=== PATIENT | male | born 1955 | race Caucasian/White ===

== ENCOUNTER 2017-01-22 20:28 | Inpatient (IN) | payer OTHER ==
[~2017-01-22] VITALS: Ht 182.9 cm; Wt 134.9 kg
[2017-01-22 20:33] VITALS: BP 112/72; PULSE 132; RESP 18; TEMP 98.2; O2SAT 95
[2017-01-22] MEDS ORDERED: SODIUM CHLORIDE 0.9% FLUSH 10 ML FLUSH IVF PRN (21:00)
[2017-01-22] MEDS ORDERED: MORPHINE SULFATE 4 MG/ML INJ IV PUSH ONE (21:00)
[2017-01-22] MEDS ORDERED: SODIUM CHLOR 0.9% 1000 ML INJ 1,000 ML IV ONE ×2 (21:00→22:00)
--- NOTE | 2017-01-22 21:03 | PD ---
HPI Chief Complaint: Fall Time Seen by Provider: 21:00 Travel History International Travel<30 days: No Contact w/Intl Traveler<30days: No Traveled to known affect area: No History of Present Illness HPI 61-year-old male with history of HTN, gout presents to the ED for evaluation of bilateral knee pain after a mechanical fall. The patient states that he lost his balance about 4 or 5 days ago and fell onto the bilateral knees. He denies loss of consciousness at that time. He states that he has been ambulatory but on a limited basis since the fall. The son is at bedside, states that he went to check on his dad today and brought him to the emergency room. Patient reports a history of "kidney problems." States that he cannot take allopurinol. Patient is followed by Dr. Arias, PCP. [facility] Past Medical History Cardiovascular Problems: Yes (HTN) Diabetes: Yes Patient Takes Glucophage: No Diminished Hearing: No Gout: Yes Hypertension: Yes Tetanus Vaccination: Unknown Influenza Vaccination: No Past Surgical History Surgical History: No Previous Surgery Social History Alcohol Use: No Tobacco Use: No Substance Use: No Allergies-Medications (Allergen,Severity, Reaction): Coded Allergies: levofloxacin (Verified Allergy, Severe, 01/22/17) Reported Meds & Prescriptions Reported Meds & Active Scripts Active Review of Systems Except as stated in HPI: all other systems reviewed are Neg Physical Exam Exam Limitations: Poor Historian Narrative GENERAL: Well-nourished, well-developed obese white male in no acute distress. SKIN: Focused skin assessment warm/dry. Tender edema, warmth and erythema of the right hand to the mid forearm. No axillary LAD noted. HEAD: Normocephalic. Atraumatic. EYES: No scleral icterus. No injection or drainage. PERRLA. EOMI. NECK: Supple, trachea midline. No JVD or lymphadenopathy. CARDIOVASCULAR: Regular rate and rhythm without murmurs, gallops, or rubs. 2+ DP and radial pulses bilaterally. RESPIRATORY: Breath sounds clear and equal bilaterally. No accessory muscle use. GASTROINTESTINAL: Abdomen soft, non-tender, nondistended. Active bowel sounds. MUSCULOSKELETAL: No cyanosis. Tophi noted at all joints. TTP of the bilateral knees. Attempted ROM elicits pain. 2+ pitting edema around the ankle of the left leg. Trace edema in the right leg to the mid ramirez. NEUROLOGICAL: Awake and alert. Cranial nerves II through XII intact. Motor and sensory grossly within normal limits. 5/5 muscle strength in all muscle groups. Normal speech. BACK: Nontender without obvious deformity. No CVA tenderness. Data Data Last Documented VS Vital Signs Date Time Temp Pulse Resp B/P (MAP) Pulse Ox O2 Delivery O2 Flow Rate FiO2 01/22/17 21:45 94 01/22/17 21:41 127 22 Room Air 01/22/17 20:33 98.2 Orders Orders Complete Blood Count With Diff (01/22/17 20:54) Blood Culture (01/22/17 20:54) Iv Access Insert/Monitor (01/22/17 20:54) Sodium Chloride 0.9% Flush (Ns Flush) (01/22/17 21:00) Comprehensive Metabolic Panel (01/22/17 20:54) Oximetry (01/22/17 20:54) Blood Pressure (01/22/17 20:54) Sodium Chlor 0.9% 1000 Ml Inj (Ns 1000 M (01/22/17 21:00) Morphine Inj (Morphine Inj) (01/22/17 21:00) C-Reactive Protein (Crp) (01/22/17 20:54) Westergren Sedimentation Rate (01/22/17 20:54) Knee, Complete (4vws) (01/22/17 20:54) Wrist, Complete ([id number]) (01/22/17 20:54) Hip, Uni(Ap&Lat) W Ap Pelvis (01/22/17 20:54) Knee, Complete (4vws) (01/22/17 20:54) Vancomycin Inj (Vancomycin Inj) (01/22/17 22:00) Piperacil-Tazo 4.5 Gm Premix (Zosyn 4.5 (01/22/17 22:00) Sodium Chlor 0.9% 1000 Ml Inj (Ns 1000 M (01/22/17 22:00) Lactic Acid (01/22/17 21:57) Electrocardiogram (01/22/17 22:03) Ckmb (Isoenzyme) Profile (01/22/17 22:03) Troponin I (01/22/17 22:03) Chest, Single Ap (01/22/17 22:03) Ct Brain W/O Iv Contrast(Rout) (01/22/17 22:03) CKMB (01/22/17 22:20) CKMB% (01/22/17 22:20) Labs Laboratory Tests Test 01/22/17 21:05 White Blood Count 19.3 TH/MM3 Red Blood Count 4.78 MIL/MM3 Hemoglobin 12.8 GM/DL Hematocrit 40.0 % Mean Corpuscular Volume 83.7 FL Mean Corpuscular Hemoglobin 26.8 PG Mean Corpuscular Hemoglobin Concent 32.0 % Red Cell Distribution Width 17.7 % Platelet Count 335 TH/MM3 Mean Platelet Volume 8.0 FL Neutrophils (%) (Auto) 84.3 % Lymphocytes (%) (Auto) 3.2 % Monocytes (%) (Auto) 10.4 % Eosinophils (%) (Auto) 0.9 % Basophils (%) (Auto) 1.2 % Neutrophils # (Auto) 16.2 TH/MM3 Lymphocytes # (Auto) 0.6 TH/MM3 Monocytes # (Auto) 2.0 TH/MM3 Eosinophils # (Auto) 0.2 TH/MM3 Basophils # (Auto) 0.2 TH/MM3 CBC Comment AUTO DIFF Differential Total Cells Counted 100 Neutrophils % (Manual) 74 % Band Neutrophils % 5 % Lymphocytes % 2 % Monocytes % 16 % Eosinophils % 1 % Neutrophils # (Manual) 15.6 TH/MM3 Metamyelocytes 1 % Myelocytes 1 % Differential Comment FINAL DIFF MANUAL Platelet Estimate NORMAL Platelet Morphology Comment NORMAL Erythrocyte Sedimentation Rate 22 mm/hr Blood Urea Nitrogen 45 MG/DL Creatinine 4.09 MG/DL Random Glucose 258 MG/DL Total Protein 7.6 GM/DL Albumin 2.1 GM/DL Calcium Level 9.2 MG/DL Alkaline Phosphatase 137 U/L Aspartate Amino Transf (AST/SGOT) 19 U/L Alanine Aminotransferase (ALT/SGPT) 24 U/L Total Bilirubin 0.9 MG/DL Sodium Level 129 MEQ/L Potassium Level 4.3 MEQ/L Chloride Level 94 MEQ/L Carbon Dioxide Level 21.9 MEQ/L Anion Gap 13 MEQ/L Estimat Glomerular Filtration Rate 15 ML/MIN C-Reactive Protein 31.00 MG/DL [facility] Medical Decision Making Medical Screen Exam Complete: Yes Emergency Medical Condition: Yes Differential Diagnosis OA versus gout flare versus cellulitis versus septic arthritis versus musculoskeletal pain versus fracture versus rhabdomyolysis versus metabolic derangement versus other Narrative Course 61-year-old male with history of HTN, gout presents to the ED for evaluation of bilateral knee pain after a mechanical fall. The patient states that he lost his balance about 4 or 5 days ago and fell onto the bilateral knees. He denies loss of consciousness at that time. He states that he has been ambulatory but on a limited basis since the fall. The son is at bedside, states that he went to check on his dad today and brought him to the emergency room. Patient reports a history of "kidney problems." States that he cannot take allopurinol. Patient is followed by Dr. Arias, PCP. Patient is afebrile, heart rate in the 120s on presentation. Physical exam reveals a white male in no acute distress. Visible tophi in all the joints. Concerned for cellulitis or possible septic joint of the right wrist. There is warm, tender erythema with edema to the mid forearm. No axillary LAD noted. Also tenderness to palpation of the right hip and the bilateral knees. Patient resists attempted ROM of the BLE. IV was established. Patient was administered IV morphine, 2 L normal saline. CBC reveals white count 19.3 with a left shift. Sodium 129. BUN 25, creatinine 4.09. ESR 22. CRP 31. No culture indicated of the UA. X-ray of the wrist reveals nondisplaced fracture of the distal radius. I discussed the results of the workup with the patient. Per the patient's son he reports multiple falls so course of the last week or so. Given this history the workup was expanded to rule out syncope. Pending at this time. Patient was administered IV vancomycin and Zosyn with concern for septic arthritis. Spoke with Dr. Nathan's ILIA Reyes who recommends velcro splinting of the wrist. Dr. Nathan will see the patient tomorrow morning. Spoke with Dr. Chakraborty who agrees to accept the patient to the medicine service. Please see medicine notes for disposition. Sepsis Criteria SIRS Criteria (2 or more): Heart rate over 90 Sepsis Criteria (SIRS+source): Infect source susp/known Severe Sepsis (+one): Acute Oliguria/Renal Failure Sarahi Simon Jan 22, 2017 21:03
[2017-01-22 21:25] LABS: AUTOMATED NEUTROPHIL # 16.2 TH/MM3 (1.8-7.7); BASOPHIL # 0.2 TH/MM3 (0-0.2); BASOPHIL % 1.2 % (0.0-2.0); EOSINOPHIL # 0.2 TH/MM3 (0-0.4); EOSINOPHIL % 0.9 % (0.0-4.0); LYMPH % 3.2 % (9.0-44.0); LYMPHOCYTE # 0.6 TH/MM3 (1.0-4.8); MEAN CELL VOLUME 83.7 FL (80.0-100.0); MEAN CORPUSCULAR HEMOGLOBIN 26.8 PG (27.0-34.0); MONO % 10.4 % (0.0-8.0); NEUT % 84.3 % (16.0-70.0); PLATELET COUNT 335 TH/MM3 (150-450); RED BLOOD COUNT 4.78 MIL/MM3 (4.50-5.90); RED CELL DISTRIBUTION WIDTH 17.7 % (11.6-17.2); WHITE BLOOD COUNT 19.3 TH/MM3 (4.0-11.0)
[2017-01-22 21:28] LABS: HEMO FLAGS AUTO DIFF
[2017-01-22 21:41] VITALS: BP 119/63; PULSE 127; RESP 22
[2017-01-22 21:41] LABS: ALT (GPT) 24 U/L (12-78); ANION GAP 13 MEQ/L (5-15); AST (GOT) 19 U/L (15-37); BICARBONATE 21.9 MEQ/L (21.0-32.0); BLOOD UREA NITROGEN 45 MG/DL (7-18); CHLORIDE 94 MEQ/L (98-107); GLOMERULAR FILTRATION RATE 15 ML/MIN (>89); POTASSIUM 4.3 MEQ/L (3.5-5.1); SODIUM (NA) 129 MEQ/L (136-145)
[2017-01-22 21:44] LABS: ALKALINE PHOSPHATASE 137 U/L (45-117); TOTAL BILIRUBIN ADULT 0.9 MG/DL (0.2-1.0)
[2017-01-22 21:45] VITALS: O2SAT 94
--- NOTE | 2017-01-22 21:58 | RADRPT ---
EXAM DATE/TIME: 01/22/2017 21:10 [facility] COMPARISON: No previous studies available for comparison. INDICATIONS : Right hip pain after fall four days ago. MEDICAL HISTORY : Gout. SURGICAL HISTORY : None. ENCOUNTER: Initial ACUITY: 4 - 6 days PAIN SCORE: 10/10 LOCATION: Right hip. FINDINGS: AP view the pelvis was obtained as well as AP and oblique views of the right hip. Degenerative change s are noted in both hips with superior joint space loss, sclerosis and hypertrophic change. There is mild flattening and remodeling of the right head. There is no definite acute fracture. The pubic rami are intact. Vascular calcifications are present. CONCLUSION: 1. Mild to moderate degenerative change of both hips with no acute fracture or malalignment. There is flattening and remodeling of the right humeral head. Benjamin Person MD on January 22, 2017 at 21:55 Board Certified Radiologist. This report was verified electronically.
--- NOTE | 2017-01-22 21:59 | RADRPT ---
EXAM DATE/TIME: 01/22/2017 21:14 [facility] COMPARISON: No previous studies available for comparison. INDICATIONS : Right knee pain after fall four days ago. MEDICAL HISTORY : Gout. SURGICAL HISTORY : None. ENCOUNTER: Initial ACUITY: 4 - 6 days PAIN SCORE: 10/10 LOCATION: Right knee. FINDINGS: A standard 4 view examination of the right knee was obtained and demonstrates no acute fracture or ma lalignment. There is soft tissue swelling over the patella. There is evidence of joint effusion. Ther e is 3 compartment osteoarthritic change with mild joint space loss, sclerosis and hypertrophic camilo e. CONCLUSION: 1. No acute fracture or malalignment. 2. Soft tissue swelling and osteoarthritic change. 3. Joint effusion Benjamin Person MD on January 22, 2017 at 21:57 Board Certified Radiologist. This report was verified electronically.
[2017-01-22] MEDS ORDERED: VANCOMYCIN INJ 1,000 MG in SODIUM CHLOR 0.9% 250 ML INJ 250 ML IV ONE (22:00)
[2017-01-22] MEDS ORDERED: PIPERACIL-TAZO 4.5 GM PREMIX 100 ML IV ONE (22:00)
--- NOTE | 2017-01-22 22:01 | RADRPT ---
EXAM DATE/TIME: 01/22/2017 21:17 [facility] COMPARISON: No previous studies available for comparison. INDICATIONS : Left knee pain after fall four days ago. MEDICAL HISTORY : Gout. SURGICAL HISTORY : None. ENCOUNTER: Initial ACUITY: 4 - 6 days PAIN SCORE: 10/10 LOCATION: Left knee. FINDINGS: A standard 4 view examination of the left knee was obtained and demonstrates mild osteopenia and norm al alignment. There is evidence of a moderate to large joint effusion filling the suprapatellar bursa . 3 compartment degenerative change is noted with mild joint space loss, sclerosis and spurring. Ther e is sclerosis involving a portion of the medial tibial plateau. There is no fracture line. There is mild chondrocalcinosis. CONCLUSION: 1. Evidence of moderate to large joint effusion. 2. No acute fracture or malalignment. 3. Mild 3 compartment osteoarthritic change. Benjamin Person MD on January 22, 2017 at 21:58 Board Certified Radiologist. This report was verified electronically.
--- NOTE | 2017-01-22 22:03 | RADRPT ---
EXAM DATE/TIME: 01/22/2017 21:21 [facility] COMPARISON: No previous studies available for comparison. INDICATIONS : Right wrist pain after fall four days ago. MEDICAL HISTORY : Gout. SURGICAL HISTORY : None. ENCOUNTER: Initial ACUITY: 4 - 6 days PAIN SCORE: 10/10 LOCATION: Right wrist. FINDINGS: AP, lateral and oblique views of the right wrist were obtained and demonstrate a nondisplaced oblique fracture through the distal ulna. There is deformity of the distal most portion of the ulna which ap pears chronic. Diffuse degenerative changes are noted about the carpus with joint space loss, scleros is and hypertrophic change. There is diffuse osteopenia. The distal radius is intact. There is soft t issue swelling over the dorsum of the wrist. CONCLUSION: 1. Nondisplaced oblique fracture through the distal ulna. 2. Chronic appearing deformity of the distal ulna as well. 3. Extensive degenerative change and osteopenia. Benjamin Person MD on January 22, 2017 at 21:59 Board Certified Radiologist. This report was verified electronically.
[2017-01-22 22:34] LABS: BANDS 5 % (0-6); EOSINOPHILS 1 % (0-4); METAMYELOCYTES 1 % (0-1); MYELOCYTES 1 % (0-0); NEUTROPHIL # MANUAL DIFF 15.6 TH/MM3 (1.8-7.7); POLYS (SEG NEUTROPHILS) 74 % (16-70); WBC DIFF SAMPLE 100
--- NOTE | 2017-01-22 22:37 | RADRPT ---
EXAM DATE/TIME: 01/22/2017 22:18 [facility] COMPARISON: No previous studies available for comparison. INDICATIONS : Syncope. Multiple falls. MEDICAL HISTORY : Hypertension. Diabetes. Gout. SURGICAL HISTORY : None. ENCOUNTER: Initial ACUITY: 1 day PAIN SCORE: Non-responsive. LOCATION: Bilateral chest FINDINGS: A single view of the chest demonstrates the lungs to be symmetrically aerated without evidence of mas s, infiltrate or effusion. The cardiomediastinal contours are unremarkable. Osseous structures are intact. There are electrocardiogram leads. CONCLUSION: No acute disease. Benjamin Person MD on January 22, 2017 at 22:35 Board Certified Radiologist. This report was verified electronically.
[2017-01-22 22:39] LABS: PLATELET ESTIMATE SMEAR NORMAL (NORMAL)
[2017-01-22 22:40] LABS: PLATELET MORPHOLOGY NORMAL (NORMAL); SCAN/DIFF FINAL DIFF MANUAL
--- NOTE | 2017-01-22 22:51 | RADRPT ---
EXAM DATE/TIME: 01/22/2017 22:39 [facility] COMPARISON: No previous studies available for comparison. INDICATIONS : Trauma; fall. RADIATION DOSE: 56.35 CTDIvol (mGy) MEDICAL HISTORY : Hypertension. Diabetes mellitus type 2. Gout SURGICAL HISTORY : None. ENCOUNTER: Initial ACUITY: 1 day PAIN SCALE: 4/10 LOCATION: cranial TECHNIQUE: Multiple contiguous axial images were obtained of the head. Using automated exposure control and adj ustment of the mA and/or kV according to patient size, radiation dose was kept as low as reasonably a chievable to obtain optimal diagnostic quality images. DICOM format image data is available electro nically for review and comparison. FINDINGS: CEREBRUM: The ventricles are normal for age. No evidence of midline shift, mass lesion, hemorrhage or acute in farction. No extra-axial fluid collections are seen. POSTERIOR FOSSA: The cerebellum and brainstem are intact. The 4th ventricle is midline. The cerebellopontine angle i s unremarkable. EXTRACRANIAL: The visualized portion of the orbits is intact. SKULL: The calvaria is intact. No evidence of skull fracture. CONCLUSION: Negative noncontrast CT Benjamin Person MD on January 22, 2017 at 22:48 Board Certified Radiologist. This report was verified electronically.
[2017-01-22 23:04] LABS: CREATINE KINASE 103 U/L (39-308)
[2017-01-22 23:16] LABS: CKMB LESS THAN 0.5 NG/ML (0.5-3.6)
[2017-01-23] VITALS (7 sets, daily range): BP systolic 99–139; BP diastolic 63–78; PULSE 92–109; RESP 16–18; TEMP 97.4–98.7; O2SAT 91–98
[2017-01-23] MEDS ORDERED: BISACODYL 10 MG SUPP RECTAL PRN (00:30)
[2017-01-23] MEDS ORDERED: MORPHINE SULFATE 4 MG/ML INJ IV PRN (00:30)
[2017-01-23] MEDS ORDERED: SENNOSIDES 8.6 MG TAB PO PRN (00:30)
[2017-01-23] MEDS ORDERED: NALOXONE HCL 0.4 MG/ML AMP IV PRN (00:30)
[2017-01-23] MEDS ORDERED: MAGNESIUM HYDROXIDE SUSP 30 ML CUP PO PRN (00:30)
[2017-01-23] MEDS: SODIUM CHLOR 0.9% 1000 ML INJ 1,000 ML IV SCH ×2 (02:02→12:23)
[2017-01-23 02:33] LABS: BACTERIA, URINE RARE /hpf; BLOOD, URINE SMALL (NEG); COMMENT (UR) CULT NOT INDICATED; CULTURE IF INDICATED CULT NOT INDICATED; GLUCOSE,URINE TRACE mg/dL (NEG); GRANULAR CAST, URINE 13 /lpf; HYALINE CAST, URINE 1 /lpf (RARE); KETONE, URINE TRACE mg/dL (NEG); MUCUS URINE FEW /lpf (OCC); NITRITE,URINE NEG (NEG); PH, URINE 5.5 (5.0-8.5); SQUAMOUS EPITHELIAL CELL URINE <1 /hpf (0-5); TRANSITIONAL EPI CELLS, URINE <1 /hpf; URIC ACID CRYSTALS, URINE RARE /hpf; URINE COLOR YELLOW (YELLW/STRAW)
[2017-01-23] MEDS ORDERED: PRED10 PO (02:41)
[2017-01-23] MEDS ORDERED: GLIP5TAB8 PO (02:44)
[2017-01-23] MEDS ORDERED: ATEN25TA PO (02:44)
--- NOTE | 2017-01-23 04:07 | HHI.HP ---
HPI Service [facility] Hospitalists Primary Care Physician Unknown Admission Diagnosis sepsis, acute on chronic renal failure, right distal ulnar fracture Diagnoses: (1) Distal end of ulna fracture, closed Chief Complaint: fell and hurt right wrist Travel History International Travel<30 Days: No Contact w/Intl Traveler <30 Da: No Traveled to Known Affected Are: No History of Present Illness Written by Evelyne Tay, acting as scribe for Dr. Chakraborty on 01/23/17 at 04:07. The patient says he fell last week and severe pain was noted in right wrist. He also reports painful bilateral lower extremities. He denies any history of psoriasis but reports a history of diabetes and gouty arthritis. He denies any heart disease. He reports hypertension and hyperlipidemia. He reports weakness with loss of appetite. He denies fever, chills, or recent illness. Denies a history of CHF. He reports chronic kidney disease - in 2004 had multiple kidney stones - about 50 - and in 2007, he developed renal failure. Review of Systems Except as stated in HPI: all other systems reviewed are Neg Past Family Social History Past Medical History Gouty arthritis Chronic kidney disease secondary to multiple kidney stones . Past Surgical History Rhinoplasty while in hospital 2008 kidney stents . Reported Medications Current Medications Sodium Chloride (NS Flush) 2 ml UNSCH PRN IVF FLUSH AFTER USING IV ACCESS; Start 01/22/17 at 21:00; Stop 01/23/17 at 00:51; Status DC Sodium Chloride 1,000 ml @ 999 mls/hr BOLUS ONCE IV Last administered on 21:40; Start 01/22/17 at 21:00; Stop 01/22/17 at 22:00; Status DC Morphine Sulfate (Morphine Inj) 4 mg ONCE ONCE IV PUSH Last administered on 21:40; Start 01/22/17 at 21:00; Stop 01/22/17 at 21:03; Status DC Vancomycin HCl 1000 mg/Sodium Chloride 250 ml @ 250 mls/hr ONCE ONCE IV Last administered on 01/22/17 23:26; Start 01/22/17 at 22:00; Stop 01/22/17 at 22:59; Status DC Piperacillin Sod/ Tazobactam Sod 100 ml @ 200 mls/hr ONCE ONCE IV Last administered on 01/22/17 23:06; Start 01/22/17 at 22:00; Stop 01/22/17 at 22:29; Status DC Sodium Chloride 1,000 ml @ 999 mls/hr BOLUS ONCE IV Last administered on 23:06; Start 01/22/17 at 22:00; Stop 01/22/17 at 23:00; Status DC Sodium Chloride 1,000 ml @ 75 mls/hr [id number] IV Last administered on 01/23/17 02:02; Start 01/23/17 at 00:30 Sodium Chloride (NS Flush) 2 ml UNSCH PRN IV FLUSH FLUSH AFTER USING IV ACCESS ; Start 01/23/17 at 00:30 Sodium Chloride (NS Flush) 2 ml BID IV FLUSH ; Start 01/23/17 at 09:00 Acetaminophen (Tylenol) 650 mg Q4H PRN PO TEMP > 100.4; Start 01/23/17 at 00:30 Ondansetron HCl (Zofran Inj) 4 mg Q6H PRN IVP NAUSEA OR VOMITING; Start at 00:30 Acetaminophen/ Hydrocodone Bitart (Pennock 5-325 Mg) 1 tab Q4H PRN PO PAIN SCALE 3 TO 5; Start 01/23/17 at 00:30 Acetaminophen/ Hydrocodone Bitart (Pennock 7.5-325 Mg) 1 tab Q4H PRN PO PAIN SCALE 6 TO 10; Start 01/23/17 at 00:30 Morphine Sulfate (Morphine Inj) 3 mg Q3H PRN IV BREAKTHROUGH PAIN; Start at 00:30 Naloxone HCl (Narcan Inj) 0.4 mg UNSCH PRN IV SEE LABEL COMMENTS; Start at 00:30 Senna/Docusate Sodium (Edna-Colace) 1 tab BID PO ; Start 01/23/17 at 09:00 Magnesium Hydroxide (Milk Of Magnesia Liq) 30 ml Q12H PRN PO MILD - MODERATE CONSTIPATION; Start 01/23/17 at 00:30 Sennosides (Senokot) 17.2 mg Q12H PRN PO MODERATE - SEVERE CONSTIPATION; Start 01/23/17 at 00:30 Bisacodyl (Dulcolax Supp) 10 mg DAILY PRN RECTAL SEVERE CONSITIPATION; Start at 00:30 Piperacillin Sod/ Tazobactam Sod 100 ml @ 200 mls/hr Q6H IV ; Start 01/23/17 at 06:00 . Allergies: Coded Allergies: levofloxacin (Verified Allergy, Severe, 01/22/17) Active Ordered Medications Current Medications Sodium Chloride (NS Flush) 2 ml UNSCH PRN IVF FLUSH AFTER USING IV ACCESS; Start 01/22/17 at 21:00; Stop 01/23/17 at 00:51; Status DC Sodium Chloride 1,000 ml @ 999 mls/hr BOLUS ONCE IV Last administered on 21:40; Start 01/22/17 at 21:00; Stop 01/22/17 at 22:00; Status DC Morphine Sulfate (Morphine Inj) 4 mg ONCE ONCE IV PUSH Last administered on 21:40; Start 01/22/17 at 21:00; Stop 01/22/17 at 21:03; Status DC Vancomycin HCl 1000 mg/Sodium Chloride 250 ml @ 250 mls/hr ONCE ONCE IV Last administered on 01/22/17 23:26; Start 01/22/17 at 22:00; Stop 01/22/17 at 22:59; Status DC Piperacillin Sod/ Tazobactam Sod 100 ml @ 200 mls/hr ONCE ONCE IV Last administered on 01/22/17 23:06; Start 01/22/17 at 22:00; Stop 01/22/17 at 22:29; Status DC Sodium Chloride 1,000 ml @ 999 mls/hr BOLUS ONCE IV Last administered on 23:06; Start 01/22/17 at 22:00; Stop 01/22/17 at 23:00; Status DC Sodium Chloride 1,000 ml @ 75 mls/hr [id number] IV Last administered on 01/23/17 02:02; Start 01/23/17 at 00:30 Sodium Chloride (NS Flush) 2 ml UNSCH PRN IV FLUSH FLUSH AFTER USING IV ACCESS ; Start 01/23/17 at 00:30 Sodium Chloride (NS Flush) 2 ml BID IV FLUSH ; Start 01/23/17 at 09:00 Acetaminophen (Tylenol) 650 mg Q4H PRN PO TEMP > 100.4; Start 01/23/17 at 00:30 Ondansetron HCl (Zofran Inj) 4 mg Q6H PRN IVP NAUSEA OR VOMITING; Start at 00:30 Acetaminophen/ Hydrocodone Bitart (Pennock 5-325 Mg) 1 tab Q4H PRN PO PAIN SCALE 3 TO 5; Start 01/23/17 at 00:30 Acetaminophen/ Hydrocodone Bitart (Pennock 7.5-325 Mg) 1 tab Q4H PRN PO PAIN SCALE 6 TO 10; Start 01/23/17 at 00:30 Morphine Sulfate (Morphine Inj) 3 mg Q3H PRN IV BREAKTHROUGH PAIN; Start at 00:30 Naloxone HCl (Narcan Inj) 0.4 mg UNSCH PRN IV SEE LABEL COMMENTS; Start at 00:30 Senna/Docusate Sodium (Edna-Colace) 1 tab BID PO ; Start 01/23/17 at 09:00 Magnesium Hydroxide (Milk Of Magnesia Liq) 30 ml Q12H PRN PO MILD - MODERATE CONSTIPATION; Start 01/23/17 at 00:30 Sennosides (Senokot) 17.2 mg Q12H PRN PO MODERATE - SEVERE CONSTIPATION; Start 01/23/17 at 00:30 Bisacodyl (Dulcolax Supp) 10 mg DAILY PRN RECTAL SEVERE CONSITIPATION; Start at 00:30 Piperacillin Sod/ Tazobactam Sod 100 ml @ 200 mls/hr Q6H IV ; Start 01/23/17 at 06:00 . Family History Mother diabetes, asthma, hypertension, heart disease father alive and well . Social History Tobacco: never Alcohol: nothing in the past 9 or 10 years Illicit Drugs: denies . Physical Exam Vital Signs Vital Signs Date Time Temp Pulse Resp B/P (MAP) Pulse Ox O2 Delivery O2 Flow Rate FiO2 01/23/17 02:36 98.7 109 16 139/78 (98) 94 01/22/17 21:45 94 01/22/17 21:41 127 22 119/63 (81) Room Air 01/22/17 20:46 Room Air 01/22/17 20:33 98.2 132 18 112/72 (85) 95 Physical Exam GENERAL: This is a patient, in no apparent distress. SKIN: No rashes, ecchymoses or lesions. Cool and dry. Multiple tophi on fingers and toes. HEAD: Atraumatic. Normocephalic. No temporal or scalp tenderness. EYES: Pupils equal round and reactive. Extraocular motions intact. No scleral icterus. No injection or drainage. ENT: Nose without bleeding, purulent drainage. NECK: Trachea midline. No JVD- though neck is thick and limits assessment. Supple, nontender, no meningeal signs. CARDIOVASCULAR: Regular rate and rhythm with systolic murmur and S3 gallop, no rubs. +2 edema. RESPIRATORY: Clear to auscultation. Breath sounds equal bilaterally. No wheezes , rales, or rhonchi. GASTROINTESTINAL: Abdomen soft, non-tender, nondistended. No guarding. + BS. Umbilical hernia that is reducible. MUSCULOSKELETAL: Extremities without clubbing, cyanosis, or edema. No calf tenderness. NEUROLOGICAL: Awake and alert. Motor and sensory grossly within normal limits. Normal speech. . Laboratory Laboratory Tests Test 01/22/17 21:05 01/22/17 22:20 01/23/17 02:00 White Blood Count 19.3 Red Blood Count 4.78 Hemoglobin 12.8 Hematocrit 40.0 Mean Corpuscular Volume 83.7 Mean Corpuscular Hemoglobin 26.8 Mean Corpuscular Hemoglobin Concent 32.0 Red Cell Distribution Width 17.7 Platelet Count 335 Mean Platelet Volume 8.0 Neutrophils (%) (Auto) 84.3 Lymphocytes (%) (Auto) 3.2 Monocytes (%) (Auto) 10.4 Eosinophils (%) (Auto) 0.9 Basophils (%) (Auto) 1.2 Neutrophils # (Auto) 16.2 Lymphocytes # (Auto) 0.6 Monocytes # (Auto) 2.0 Eosinophils # (Auto) 0.2 Basophils # (Auto) 0.2 CBC Comment AUTO DIFF Differential Total Cells Counted 100 Neutrophils % (Manual) 74 Band Neutrophils % 5 Lymphocytes % 2 Monocytes % 16 Eosinophils % 1 Neutrophils # (Manual) 15.6 Metamyelocytes 1 Myelocytes 1 Differential Comment FINAL DIFF MANUAL Platelet Estimate NORMAL Platelet Morphology Comment NORMAL Erythrocyte Sedimentation Rate 22 Blood Urea Nitrogen 45 Creatinine 4.09 Random Glucose 258 Total Protein 7.6 Albumin 2.1 Calcium Level 9.2 Alkaline Phosphatase 137 Aspartate Amino Transf (AST/SGOT) 19 Alanine Aminotransferase (ALT/SGPT) 24 Total Bilirubin 0.9 Sodium Level 129 Potassium Level 4.3 Chloride Level 94 Carbon Dioxide Level 21.9 Anion Gap 13 Estimat Glomerular Filtration Rate 15 C-Reactive Protein 31.00 Lactic Acid Level 1.6 Total Creatine Kinase 103 Creatine Kinase MB LESS THAN 0.5 Troponin I LESS THAN 0.02 Urine Color YELLOW Urine Turbidity HAZY Urine pH 5.5 Urine Specific Saline 1.013 Urine Protein 100 Urine Glucose (UA) TRACE Urine Ketones TRACE Urine Occult Blood SMALL Urine Nitrite NEG Urine Bilirubin NEG Urine Urobilinogen LESS THAN 2.0 Urine Leukocyte Esterase NEG Urine RBC 1 Urine WBC 8 Urine Squamous Epithelial Cells <1 Urine Transitional Epithelial Cells <1 Urine Uric Acid Crystals RARE Urine Amorphous Sediment RARE Urine Bacteria RARE Urine Hyaline Casts 1 Urine Granular Casts 13 Urine Mucus FEW Microscopic Urinalysis Comment CULT NOT INDICATED Urine Eosinophils NONE SEEN Urine Random Creatinine 171 Urine Random Total Protein 209 Urine Random Sodium 27 Urine Protein/Creatinine Ratio 1.22 Date/Time Source Procedure Growth Status 01/22/17 21:05 Blood Peripheral Aerobic Blood Culture Pending Received 01/22/17 21:05 Blood Peripheral Anaerobic Blood Culture Pending Received Result Diagram: 01/22/17210401/22/172104 Imaging Last Impressions Head CT 01/22/172202 Signed Impressions: Service Date/Time: Sunday, January 22, 2017 22:39 - CONCLUSION: Negative noncontrast CT Benjamin Person MD Chest X-Ray 01/22/172202 Signed Impressions: Service Date/Time: Sunday, January 22, 2017 22:18 - CONCLUSION: No acute disease. Benjamin Person MD Wrist X-Ray 01/22/172053 Signed Impressions: Service Date/Time: Sunday, January 22, 2017 21:21 - CONCLUSION: 1. Nondisplaced oblique fracture through the distal ulna. 2. Chronic appearing deformity of the distal ulna as well. 3. Extensive degenerative change and osteopenia. Benjamin Person MD Knee X-Ray 01/22/172053 Signed Impressions: Service Date/Time: Sunday, January 22, 2017 21:17 - CONCLUSION: 1. Evidence of moderate to large joint effusion. 2. No acute fracture or malalignment. 3. Mild 3 compartment osteoarthritic change. Benjamin Person MD Hip and Pelvis X-Ray 01/22/172053 Signed Impressions: Service Date/Time: Sunday, January 22, 2017 21:10 - CONCLUSION: 1. Mild to moderate degenerative change of both hips with no acute fracture or malalignment. There is flattening and remodeling of the right humeral head. Benjamin Person MD . Caprini VTE Risk Assessment Caprini VTE Risk Assessment: Mod/High Risk (score >= 2) Caprini Risk Assessment Model Point Value = 1 Point Value = 2 Point Value = 3 Point Value = 5 Age 41-60 Minor surgery BMI > 25 kg/m2 Swollen legs Varicose veins or History of unexplained or recurrent spontaneous Oral contraceptives or hormone replacement Sepsis (< 1 month) Serious lung disease, including pneumonia (< 1 month) Abnormal pulmonary function Acute myocardial infarction Congestive heart failure (< 1 month) History of inflammatory bowel disease Medical patient at bed rest Age 61-74 Arthroscopic surgery Major open surgery (> 45 min) Laparoscopic surgery (> 45 min) Malignancy Confined to bed (> 72 hours) Immobilizing plaster cast Central venous access Age >= 75 History of VTE Family history of VTE Factor V Leiden Prothrombin [id number] Lupus anticoagulant Anticardiolipin antibodies Elevated serum homocysteine Heparin-induced thrombocytopenia Other congenital or acquired thrombophilia Stroke (< 1 month) Elective arthroplasty Hip, pelvis, or leg fracture Acute spinal cord injury (< 1 month) Prophylaxis Regimen Total Risk Factor Score Risk Level Prophylaxis Regimen 0-1 Low Early ambulation 2 Moderate Order ONE of the following: *Sequential Compression Device (SCD) *Heparin 5000 units SQ BID 3-4 Higher Order ONE of the following medications: *Heparin 5000 units SQ TID *Enoxaparin/Lovenox 40 mg SQ daily (WT < 150 kg, CrCl > 30 mL/min) *Enoxaparin/Lovenox 30 mg SQ daily (WT < 150 kg, CrCl > 10-29 mL/min) *Enoxaparin/Lovenox 30 mg SQ BID (WT < 150 kg, CrCl > 30 mL/min) AND/OR *Sequential Compression Device (SCD) 5 or more Highest Order ONE of the following medications: *Heparin 5000 units SQ TID (Preferred with Epidurals) *Enoxaparin/Lovenox 40 mg SQ daily (WT < 150 kg, CrCl > 30 mL/min) *Enoxaparin/Lovenox 30 mg SQ daily (WT < 150 kg, CrCl > 10-29 mL/min) *Enoxaparin/Lovenox 30 mg SQ BID (WT < 150 kg, CrCl > 30 mL/min) AND *Sequential Compression Device (SCD) Assessment and Plan Problem List: (1) Distal end of ulna fracture, closed ICD Code: S52.609A - Unspecified fracture of lower end of unspecified ulna, initial encounter for closed fracture (2) Diabetes mellitus ICD Code: E11.9 - Type 2 diabetes mellitus without complications Assessment and Plan Oblique fracture through distal ulna on right - consult ortho - NPO for possible surgical repair - By mouth Pennock as needed for pain with IV morphine for breakthrough pain Concern for septic arthritis - Antibiotics: Zosyn 4.5 g IV every 6 hours - consult infectious disease - didn't continue Vancomycin due to renal insufficiency - elevations in CRP - 31 and ESR - 22 Acute on chronic renal insufficiency - No prior labs available for comparison - BUN 45, creatinine 4.09, estimated gFR - 15 - recheck bmp in a.m. and follow trends in renal indices - avoid nephrotoxins - obtain u/s bilateral kidneys - check urine for creatinine, sodium, urinalysis with C and S if indicated, and eosinophils Type 2 Diabetes Mellitus - Accu-Cheks before meals and at bedtime with low-dose NovoLog sliding scale coverage - Hypoglycemia protocol - Monitor trends and blood glucose readings and adjust treatments as indicated DVT prophylaxis - Heparin 5000 units subq q8h subq once okay with ortho medication reconciliation - call [facility] in [place], [place] for correct doses of medications so that med rec can be completed accurately Discussed Condition With ER physician, patient, and RN This note was transcribed by scribe [Evelyne Tay]. I, Dr. Preston Chakraborty personally performed the history, physical exam, and medical decision making; and confirmed the accuracy of the information in the transcribed note. Authenticated by Dr. Preston Chakraborty on 01/23/17 at 04:31. Evelyne Tay Jan 23, 2017 04:07 Preston Chakraborty MD Jan 25, 2017 07:32
[2017-01-23] MEDS ORDERED: PIPERACIL-TAZO 4.5 GM PREMIX 100 ML IV SCH (06:00)
--- NOTE | 2017-01-23 07:23 | MB ---
cc: AIDA VARELA DATE OF ADMISSION 01/22/2017 DATE OF CONSULTATION 01/23/2017 REASON FOR CONSULTATION Right distal ulnar fracture. PHYSICIAN Dr. Chakraborty HISTORY Philip Kerr is a 61-year-old male who had a fall approximately one week ago. He had immediate right-sided wrist pain. He states that he was very busy with work and other things and was unable to seek medical attention until yesterday. He presented to the emergency room where x-rays revealed a distal ulnar fracture. He also had some redness and swelling. He has a long history of diabetes and gout. He also has chronic renal failure. He is currently awake and alert in the emergency department. His main complaint is of his right wrist. The pain is worse with movement and is improved with rest. PAST MEDICAL HISTORY ILLNESSES 1. Gout. 2. Chronic renal failure. 3. Possible diabetes. ALLERGIES LEVOFLOXACIN. MEDICATIONS Please see EMR for complete list of medications. This was reviewed. PAST SURGICAL HISTORY 1. Rhinoplasty. 2. Kidney stents for stones. FAMILY HISTORY Positive for diabetes, asthma, hypertension and heart disease in his mother. SOCIAL HISTORY The patient denies tobacco, drugs or alcohol use. REVIEW OF SYSTEMS The patient denies headache, visual changes, neck pain, chest pain, abdominal pain, nausea, vomiting or recent weight loss, numbness or tingling of the extremities. He complains of some bilateral lower extremity weakness. He also complains of intermittent gout attacks. He complains of right wrist pain. PHYSICAL EXAMINATION GENERAL: The patient is a pleasant, 61-year-old male in no acute distress. He is awake and alert. He is alert and oriented x 3. Appears well-developed, well-nourished. VITAL SIGNS: Temperature 98.7, pulse 109, respirations 16, blood pressure 129/78. O2 sat is 94% on room air. HEAD: The patient is normocephalic. Pupils are equal. NECK: Soft and nontender. Trachea is midline. ABDOMEN: Soft, nontender, nondistended. EXTREMITIES: Examination of the right arm reveals no pain with shoulder or elbow motion. He has tenderness to palpation directly over the distal ulna. There is some bruising, swelling and mild redness around the right side of his wrist. This appears to be more related to traumatic injury. This does not appear to be cellulitis. There is no warmth noted. He has good capillary refill in his fingers. He has changes throughout his wrists and hands of chronic gout. There are visible tophi present. Examination of the left arm reveals no pain with shoulder, elbow or wrist motion. He has intact sensation in all fingers. He has good capillary refill in all fingers. Skin is intact. Radial pulses palpable. Examination of the bilateral extremities reveals no obvious pain or deformity with hip, knee or ankle motion. Skin is intact to both feet. Sensation is grossly intact to both feet. X-RAYS X-rays of they right wrist were reviewed. X-rays reveal minimally displaced right distal ulna fracture. IMPRESSION 1. Chronic gout. 2. Right distal ulna fracture. 3. Renal failure. PLAN The treatment options were discussed with the patient. At this point I would recommend nonoperative treatment. At this point the patient's wrist does not appear to have clinical signs of infection. He will need to remain in a splint until followup. He may then be converted to a cast. All of his questions were answered. I will continue to follow his progress. A mid-level provider in my office, nurse practitioner or PA, may see this patient on a follow-up basis and continue to implement the objective of this plan including: Starting or adjusting medications, injections of muscle, tendon, bursa or joints, cast application, orthotic or brace application, physical therapy, further radiographic studies including x-ray, MRI, CT, ultrasounds or bone scan, vascular studies, neurologic studies, or other specialist consultations, and proceeding with surgical management as appropriate. MD TARUN Walden/JOON /7:01 AM /7:07 AM
[2017-01-23] MEDS ORDERED: GLUCAGON 1 MG/ML VIAL OTHER PRN (07:45)
[2017-01-23] MEDS ORDERED: DEXTROSE 50% IN WATER 50 ML VIAL(D50) IV PRN (07:45)
[2017-01-23] MEDS: DOCUSATE SODIUM 50 MG/SENNA 8.6 MG TAB PO SCH ×2 (07:55→21:00)
[2017-01-23] MEDS: SODIUM CHLORIDE 0.9% FLUSH 10 ML FLUSH IV FLUSH SCH ×2 (07:55→20:53)
[2017-01-23] MEDS ORDERED: INSULIN ASPART 1,000 UNITS/10 ML VIAL SQ ONE (09:45)
--- NOTE | 2017-01-23 09:47 | HHI.PR ---
Subjective Remarks Follow up for fall, weakness, right ulna fracture. The patient's main complaint is lower extremity weakness that has been getting progressively worse over the past few months. He says it started in his legs and now his entire body feels weak. He states it is difficult now for him to even take the trash out. He also complains of generalized fatigue. He denies any specific back pains but does report some diffuse lower back discomfort at times, denies any radiation down the legs. He does report a few nights ago he was nauseous and vomiting. He does not know his medications or dosing, nursing trying to verify from pharmacy. Objective Vitals Vital Signs Date Time Temp Pulse Resp B/P (MAP) Pulse Ox O2 Delivery O2 Flow Rate FiO2 01/23/17 07:44 98.2 103 16 129/73 (91) 91 01/23/17 07:33 105 01/23/17 06:17 21 01/23/17 02:36 98.7 109 16 139/78 (98) 94 01/22/17 21:45 94 01/22/17 21:41 127 22 119/63 (81) Room Air 01/22/17 20:46 Room Air 01/22/17 20:33 98.2 132 18 112/72 (85) 95 I/O 01/22/17 01/22/17 01/22/17 01/23/17 01/23/17 01/23/17 07:00 15:00 23:00 07:00 15:00 23:00 Intake Total 1000 ml 1350 ml Output Total 225 ml Balance 1000 ml 1125 ml Intake IV Total 1000 ml 1350 ml Output Urine Total 225 ml Result Diagram: 01/22/17210401/22/172104 Imaging Last Impressions Head CT 01/22/172202 Signed Impressions: Service Date/Time: Sunday, January 22, 2017 22:39 - CONCLUSION: Negative noncontrast CT Benjamin Person MD Chest X-Ray 01/22/172202 Signed Impressions: Service Date/Time: Sunday, January 22, 2017 22:18 - CONCLUSION: No acute disease. Benjamin Person MD Wrist X-Ray 01/22/172053 Signed Impressions: Service Date/Time: Sunday, January 22, 2017 21:21 - CONCLUSION: 1. Nondisplaced oblique fracture through the distal ulna. 2. Chronic appearing deformity of the distal ulna as well. 3. Extensive degenerative change and osteopenia. Benjamin Person MD Knee X-Ray 01/22/172053 Signed Impressions: Service Date/Time: Sunday, January 22, 2017 21:17 - CONCLUSION: 1. Evidence of moderate to large joint effusion. 2. No acute fracture or malalignment. 3. Mild 3 compartment osteoarthritic change. Benjamin Person MD Hip and Pelvis X-Ray 01/22/172053 Signed Impressions: Service Date/Time: Sunday, January 22, 2017 21:10 - CONCLUSION: 1. Mild to moderate degenerative change of both hips with no acute fracture or malalignment. There is flattening and remodeling of the right humeral head. Benjamin Person MD Objective Remarks GENERAL: Well-nourished, well-developed middle aged male patient in [facility]. Drowsy , falling asleep during exam. SKIN: Warm and dry. No rash. HEENT: Normocephalic. Atraumatic. Pupils equal and round. Mucous membranes pink and moist. NECK: Supple. Trachea midline. CARDIOVASCULAR: Regular rate and rhythm. S1, S2 noted. No murmur appreciated. RESPIRATORY: No accessory muscle use. Clear to auscultation. Breath sounds equal bilaterally. GASTROINTESTINAL: Abdomen soft, non-tender, nondistended. Normoactive bowel sounds x4. MUSCULOSKELETAL: No obvious deformities. 1+ bilateral lower extremity pitting edema. RUE in splint. NEUROLOGICAL: Awake and alert. No obvious cranial nerve deficits. Motor grossly within normal limits. 4/5 muscle strength in bilateral lower extremities. Normal speech. PSYCHIATRIC: Appropriate mood and affect; insight and judgment normal. Medications and IVs Current Medications Medications (Trade) Dose Ordered Sig/Rosalia Route Start Time Stop Time Status Last Admin Sodium Chloride 1,000 ml @ 75 mls/hr [id number] IV 01/23/17 00:30 01/23/17 02:02 (NS Flush) 2 ml UNSCH PRN IV FLUSH 01/23/17 00:30 (NS Flush) 2 ml BID IV FLUSH 01/23/17 09:00 (Tylenol) 650 mg Q4H PRN PO 01/23/17 00:30 (Zofran Inj) 4 mg Q6H PRN IVP 01/23/17 00:30 (Hungry Horse 5-325 Mg) 1 tab Q4H PRN PO 01/23/17 00:30 (Hungry Horse 7.5-325 Mg) 1 tab Q4H PRN PO 01/23/17 00:30 (Morphine Inj) 3 mg Q3H PRN IV 01/23/17 00:30 (Narcan Inj) 0.4 mg UNSCH PRN IV 01/23/17 00:30 (Edna-Colace) 1 tab BID PO 01/23/17 09:00 (Milk Of Magnesia Liq) 30 ml Q12H PRN PO 01/23/17 00:30 (Senokot) 17.2 mg Q12H PRN PO 01/23/17 00:30 (Dulcolax Supp) 10 mg DAILY PRN RECTAL 01/23/17 00:30 Piperacillin Sod/ Tazobactam Sod 100 ml @ 200 mls/hr Q6H IV 01/23/17 06:00 01/23/17 05:39 (D50w (Vial) Inj) 50 ml UNSCH PRN IV 01/23/17 07:45 (Glucagon Inj) 1 mg UNSCH PRN OTHER 01/23/17 07:45 (NovoLOG SUPPLEMENTAL SCALE) 1 ACHS SLIDING SCALE SQ 01/23/17 11:00 A/P Problem List: (1) Distal end of ulna fracture, closed ICD Code: S52.609A - Unspecified fracture of lower end of unspecified ulna, initial encounter for closed fracture (2) Diabetes mellitus ICD Code: E11.9 - Type 2 diabetes mellitus without complications Assessment and Plan 61-year-old male with history of diabetes mellitus, gouty arthritis, COPD secondary to recurrent nephrolithiasis per the patient, presents with multiple complaints including bilateral lower extremity weakness, falls, right arm pain. Right Distal Ulna Oblique Fracture: RUE xray images reviewed. - consulted ortho, nonsurgical, recommends continuing splint, plan to transition to cast as outpatient - Continue norco prn and IV morphine prn breakthrough pain Concern for septic arthritis: patient meets sepsis criteria with leukocytosis WBC 19.3K, tachycardia HR 132, however afebrile, lactic acid 1.6. Patient has also been on recent steroids as outpatient. - elevations in CRP - 31 and ESR - 22 - Continue Antibiotics with Zosyn 4.5 g IV every 6 hours - didn't continue Vancomycin due to renal insufficiency - ortho not concerned for septic joint, will cancel ID consult Acute Renal Failure: no previous labs to compare. - No prior labs available for comparison - BUN 45, creatinine 4.09, estimated gFR - 15 - recheck bmp today and follow trend - avoid nephrotoxins - ordered u/s bilateral kidneys - check urine for creatinine, sodium, urinalysis with C and S if indicated, and eosinophils - consult nephrology Lower Extremity Weakness and Falls: progressive over the past few months - check C-L spine MRIs and brain MRI (RLE appears weaker than right on exam, rule out CVA) - check Vit B12, RPR, B1, folate, TSH, ammonia Lower Extremity Edema: patient complaining both legs feel "full" and "heavy" - check BLE Doppler U/S to rule out DVT - 1700hrs: Doppler U/S positive for bilateral DVT, will start on Heparin drip for now; consider transition to Eliquis; await nephrology eval Type 2 Diabetes Mellitus: patient unsure of his home meds or dosing, RN to verify with his pharmacy - Continue Accu-Cheks before meals and at bedtime with low-dose NovoLog sliding scale coverage - Hypoglycemia protocol - Check HgbA1c DVT prophylaxis: Heparin sq medication reconciliation - call [facility] in [place], [place] for correct doses of medications so that med rec can be completed accurately Discharge Planning Discharge pending ID eval, PT/OT eval, further work up, and further clinical improvement. Likely needs additional 1-2 days of hospitalization. Shereen Pérez PA-C Jan 23, 2017 09:47
--- NOTE | 2017-01-23 09:59 | RADRPT ---
EXAM DATE/TIME: 01/23/2017 08:53 [facility] COMPARISON: No previous studies available for comparison. INDICATIONS : Acute kidney injury with chronic kidney disease. MEDICAL HISTORY : Hypertension. Renal calculi. Arthritis. Renal disease. Gout. Diabetes. SURGICAL HISTORY : Nasal surgery. Stents in kidneys for stones. ENCOUNTER: Initial ACUITY: 1 day PAIN SCORE: 0/10 LOCATION: Bilateral flank MEASUREMENTS: RIGHT KIDNEY: 14.7 x 5.9 x 8.4 cm LEFT KIDNEY: 11.6 x 3.5 x 4.2 cm FINDINGS: RIGHT KIDNEY: Diffusely echogenic.. No hydronephrosis, stone, or mass. LEFT KIDNEY: Diffusely echogenic.. No hydronephrosis, stone, or mass. BLADDER: Normal-appearing urinary bladder. Trace free fluid seen in Morison's pouch, nonspecific. CONCLUSION: 1. Evidence of chronic parenchymal disease of both kidneys. No obstructive uropathy or other acute ab normality demonstrated. 2. Trace ascites, nonspecific. Angelo Garrido MD on January 23, 2017 at 9:55 Board Certified Radiologist. This report was verified electronically.
--- NOTE | 2017-01-23 10:29 | RADRPT ---
EXAM DATE/TIME: 01/23/2017 09:53 [facility] COMPARISON: No previous studies available for comparison. INDICATIONS : Bilateral leg swelling. MEDICAL HISTORY : Hypertension. Renal calculi. Arthritis. Renal disease. Gout. Diabetes. SURGICAL HISTORY : Nasal surgery. Stents in kidneys for stones. ENCOUNTER: Initial ACUITY: 1 day PAIN SCORE: 0/10 LOCATION: Bilateral legs. TECHNIQUE: Venous ultrasound of the left and right leg was performed from the inguinal ligament to the proximal calf. Real-time, color Doppler and spectral tracing, compression and augmentation techniques were us ed. FINDINGS: RIGHT LEG: There is occlusive thrombus in the right posterior tibial vein. Other venous tributaries of the right lower extremity are patent. LEFT LEG: There is occlusive thrombus in the left posterior tibial vein. Other venous tributaries of the left l ower extremity are patent. CONCLUSION: Bilateral focal lower extremity DVT involving the posterior tibial veins. Angelo Garrido MD on January 23, 2017 at 10:26 Board Certified Radiologist. This report was verified electronically.
[2017-01-23] MEDS: PIPERACIL-TAZO 3.375 GM PREMIX 50 ML IV SCH ×2 (12:10→19:23)
[2017-01-23 13:47] LABS: AUTOMATED NEUTROPHIL # 14.1 TH/MM3 (1.8-7.7); BASOPHIL # 0.1 TH/MM3 (0-0.2); BASOPHIL % 0.7 % (0.0-2.0); EOSINOPHIL # 0.1 TH/MM3 (0-0.4); EOSINOPHIL % 0.5 % (0.0-4.0); HEMATOCRIT 31.9 % (39.0-51.0); LYMPH % 4.3 % (9.0-44.0); LYMPHOCYTE # 0.7 TH/MM3 (1.0-4.8); MEAN CELL VOLUME 82.8 FL (80.0-100.0); MEAN CORPUSCULAR HEMOGLOBIN 26.9 PG (27.0-34.0); MEAN CORPUSCULAR HGB CONC 32.5 % (32.0-36.0); MONO % 9.2 % (0.0-8.0); NEUT % 85.3 % (16.0-70.0); PLATELET COUNT 272 TH/MM3 (150-450); RED BLOOD COUNT 3.85 MIL/MM3 (4.50-5.90); RED CELL DISTRIBUTION WIDTH 17.5 % (11.6-17.2); WHITE BLOOD COUNT 16.5 TH/MM3 (4.0-11.0)
[2017-01-23 13:53] LABS: HEMO FLAGS AUTO DIFF
--- NOTE | 2017-01-23 13:54 | EKG ---
Date Performed: 01/23/2017 Time Performed: 04:59:46 PTAGE: 61 years EKG: SINUS TACHYCARDIA ABNORMAL RHYTHM ECG Compared to prior tracing no significant change PREVIOUS TRACING DOCTOR: Soy Cutler Interpretating Date/Time 01/23/2017 13:49:18
[2017-01-23] MEDS ORDERED: HEPARIN SODIUM - SQ 10,000 UNITS/ML VIAL SQ SCH (14:00)
[2017-01-23] MEDS: INSULIN ASPART SUPPLEMENTAL SCALE SQ SCH ×3 (14:02→21:00)
--- NOTE | 2017-01-23 14:06 | EKG ---
Date Performed: 01/22/2017 Time Performed: 23:21:01 PTAGE: 61 years EKG: SINUS TACHYCARDIA ABNORMAL RHYTHM ECG NO PREVIOUS TRACING DOCTOR: Soy Cutler Interpretating Date/Time 01/23/2017 14:02:44
[2017-01-23 14:09] LABS: BICARBONATE 24.4 MEQ/L (21.0-32.0); POTASSIUM 3.9 MEQ/L (3.5-5.1)
[2017-01-23 14:13] LABS: TRANSFERRIN IRON PROFILE 89 MG/DL (200-360)
[2017-01-23 14:19] LABS: OVALOCYTES 1+ (NORMAL)
[2017-01-23 14:20] LABS: PLATELET ESTIMATE SMEAR NORMAL (NORMAL); PLATELET MORPHOLOGY NORMAL (NORMAL); SCAN/DIFF AUTO DIFF CONFIRMED
[2017-01-23 14:39] LABS: FERRITIN 2914 NG/ML (26-388)
[2017-01-23] MEDS ORDERED: HEPARIN SODIUM - IV 10,000 UNITS/10 ML VIAL IV ONE (17:15)
--- NOTE | 2017-01-23 17:34 | RADRPT ---
EXAM DATE/TIME: 01/23/2017 17:01 [facility] COMPARISON: CT BRAIN W/O CONTRAST, January 22, 2017, 22:39. INDICATIONS : Frequent falls. Weakness. MEDICAL HISTORY : Hypertension. Diabetes mellitus type 2. SURGICAL HISTORY : Broken nose. ENCOUNTER: Subsequent ACUITY: 2 day PAIN SCORE: 0/10 LOCATION: head. TECHNIQUE: Multiplanar, multisequence MRI of the brain was performed without contrast. FINDINGS: CEREBRUM: The ventricles are normal for age. No evidence of midline shift, mass lesion, hemorrhage or acute in farction. No extraaxial fluid collections are seen. The pituitary gland and suprasellar cistern are normal in configuration. WHITE MATTER: Moderate severity, chronic scattered flair signal abnormality seen in the periventricular and subcort ical white matter of both cerebral hemispheres. POSTERIOR FOSSA: A few sub-3 mm foci of flair abnormality are seen in the db and bilateral cerebral peduncles, presu mably old lacunar infarcts. DIFFUSION IMAGING: No focal areas of restricted diffusion are seen. No evidence of acute infarction. EXTRACRANIAL: The visualized portions of the orbits and paranasal sinuses are unremarkable. CONCLUSION: 1. No acute stroke or other acute intracranial abnormality demonstrated. 2. Moderate severity chronic white matter changes, nonspecific but most likely related to chronic sma ll vessel disease. 3. Few scattered tiny lacunar infarcts of the brainstem. 4. Given the findings are not entirely specific, clinical evaluation for possible multiple sclerosis recommended. Angelo Garrido MD on January 23, 2017 at 17:29 Board Certified Radiologist. This report was verified electronically.
--- NOTE | 2017-01-23 17:48 | RADRPT ---
EXAM DATE/TIME: 01/23/2017 17:01 [facility] COMPARISON: No previous studies available for comparison. INDICATIONS : Lower extremity weakness. MEDICAL HISTORY : Diabetes mellitus type 2. Hypertension. SURGICAL HISTORY : Broken nose. ENCOUNTER: Subsequent ACUITY: 2 day PAIN SCORE: 0/10 LOCATION: neck. TECHNIQUE: Multiplanar, multisequence MRI examination of the cervical spine was performed. FINDINGS: VERTEBRAE: Normal vertebral body height. Homogeneous marrow signal. ALIGNMENT: No evidence of subluxation. CORD: Normal configuration and signal. POST FOSSA: The cerebellar tonsils are normal in position. There is mild osteoarthritis anteriorly at C1/C2. C2-C3: Within normal limits. C3-C4: The disc is desiccated and has mild loss of height. There is a small, broad/diffuse disc osteophyte c omplex and mild bilateral uncovertebral and facet osteoarthritis. There is mild effacement of the ant erior aspect of the thecal sac without cord compression or cord signal abnormality. There is mild rig ht foraminal stenosis. C4-C5: The disc is desiccated and has moderate loss of height. Small moderate, broad but especially left par acentral/foraminal/lateral disc osteophyte complex. There is [id number] right and moderate left uncovertebral and facet osteoarthritis. There is mild spinal stenosis without cord compression or co rd signal abnormality. There is mild right and moderate left foraminal stenosis. C5-C6: The disc is desiccated and has mild loss of height. There is a small, broad/diffuse disc osteophyte c omplex and mild to moderate bilateral uncovertebral and facet osteoarthritis. There is moderate right and mild left foraminal stenosis. C6-C7: The disc is desiccated and has moderate loss of height. There is diffuse bulging of the disc annulus and a superimposed large left foraminal disc protrusion, age-indeterminate. There is moderate bilater al uncovertebral and facet osteoarthritis. There is mild spinal stenosis without cord compression or cord signal abnormality. There is moderate right and severe left foraminal stenosis. C7-T1: Within normal limits CONCLUSION: 1. Multilevel cervical spine degenerative changes as above. 2. Mild degrees of spinal stenosis at C3/C4-C6/C7. No cord compression or cord signal abnormality. 3. Age indeterminate left paracentral/foraminal disc protrusion at C6/C7. 4. Multilevel foraminal stenosis, most severe on the left at C6/C7. Please see individual levels abov e. 5. No fracture or subluxation of the cervical spine. Angelo Garrido MD on January 23, 2017 at 17:40 Board Certified Radiologist. This report was verified electronically.
--- NOTE | 2017-01-23 18:10 | RADRPT ---
EXAM DATE/TIME: 01/23/2017 17:01 [facility] COMPARISON: No previous studies available for comparison. INDICATIONS : Lower extremity weakness. MEDICAL HISTORY : Diabetes mellitus type 2. Hypertension. SURGICAL HISTORY : Broken nose. ENCOUNTER: Subsequent ACUITY: 2 day PAIN SCORE: 0/10 LOCATION: back. TECHNIQUE: Multiplanar multisequence MRI of the lumbar spine was performed without contrast. FINDINGS: T12-L1: No significant abnormality. L1-2: Mild disc bulge and facet arthropathy with mild encroachment on the lateral recesses and neural wilbur nancy. L2-3: Broad-based disc protrusion and facet arthropathy with moderate central canal and lateral recess sten osis and mild foraminal stenosis. L3-4: Broad-based posterior disc protrusion and facet arthropathy with a moderate to severe central canal a nd lateral recess stenosis and mild foraminal stenosis. L4-5: Broad-based disc protrusion, facet arthropathy and hypertrophy resulting in severe central and latera l recess stenosis and moderate bilateral foraminal stenosis with flattening of the exiting right L4 n erve root. L5-S1, broad-based posterior disc protrusion and facet arthropathy with moderate to severe foraminal stenosis and flattening of the exiting L5 nerve roots bilaterally. CONCLUSION: 1. At L4-5 is a broad-based disc protrusion with severe central canal and lateral recess stenosis and flattening of the exiting right L4 nerve root. 2. L5-S1 there is a disc protrusion and moderate stenosis with flattening of the exiting L5 nerve dedrick ts bilaterally. 3. At L3-4 there is a moderate to severe central stenosis and lateral recess stenosis with mild wilbur inal stenosis. 4. No acute fracture or spondylolisthesis. Trace Holloway MD on January 23, 2017 at 18:00 Board Certified Radiologist. This report was verified electronically.
--- NOTE | 2017-01-23 18:27 | PD.CONS ---
HPI Service Nephrology Consult Requested By Dr. Chairez Reason for Consult Acute and chronic kidney disease Primary Care Physician Unknown History of Present Illness Patient is a 61-year-old male with history of recent fall after missing a step he fractured his right hand came to the emergency. Patient gives a history of chronic kidney disease, hypertension, gouty arthritis, he states he was passing uric acid stones until 2007 when he had stent placed and then removed after which he stopped producing any stones, he is feeling weak in the legs and feels tired creatinine is around 3.9. Review of Systems Constitutional: COMPLAINS OF: Fatigue Gastrointestinal: COMPLAINS OF: Anorexia Musculoskeletal: COMPLAINS OF: Joint pain, Joint Swelling Neurologic: COMPLAINS OF: Abnormal gait Past Family Social History Allergies: Coded Allergies: levofloxacin (Verified Allergy, Severe, 01/22/17) Past Medical History Gout Diabetes Hypertension Chronic kidney disease Arthritis Kidney stone Past Surgical History His kidney stone removed and had cystoscopy stent placement Reported Medications Reported Meds & Active Scripts Active Reported Glipizide 5 Mg Tab 5 Mg PO BIDAC Take 30 minutes before a meal Atenolol 25 Mg Tab 25 Mg PO DAILY Prednisone 10 Mg Tab 10 Mg PO DAILY Active Ordered Medications Current Medications Medications (Trade) Dose Ordered Sig/Rosalia Route Start Time Stop Time Status Last Admin Sodium Chloride 1,000 ml @ 75 mls/hr [id number] IV 01/23/17 00:30 01/23/17 12:23 (NS Flush) 2 ml UNSCH PRN IV FLUSH 01/23/17 00:30 (NS Flush) 2 ml BID IV FLUSH 01/23/17 09:00 (Tylenol) 650 mg Q4H PRN PO 01/23/17 00:30 (Zofran Inj) 4 mg Q6H PRN IVP 01/23/17 00:30 ([place] 5-325 Mg) 1 tab Q4H PRN PO 01/23/17 00:30 ([place] 7.5-325 Mg) 1 tab Q4H PRN PO 01/23/17 00:30 (Morphine Inj) 3 mg Q3H PRN IV 01/23/17 00:30 (Narcan Inj) 0.4 mg UNSCH PRN IV 01/23/17 00:30 (Edna-Colace) 1 tab BID PO 01/23/17 09:00 (Milk Of Magnesia Liq) 30 ml Q12H PRN PO 01/23/17 00:30 (Senokot) 17.2 mg Q12H PRN PO 01/23/17 00:30 (Dulcolax Supp) 10 mg DAILY PRN RECTAL 01/23/17 00:30 (D50w (Vial) Inj) 50 ml UNSCH PRN IV 01/23/17 07:45 (Glucagon Inj) 1 mg UNSCH PRN OTHER 01/23/17 07:45 (NovoLOG SUPPLEMENTAL SCALE) 1 ACHS SLIDING SCALE SQ 01/23/17 11:00 01/23/17 14:02 Piperacillin Sod/ Tazobactam Sod 50 ml @ 100 mls/hr Q6HR IV 01/23/17 12:00 01/23/17 12:10 (Heparin Inj) 7,000 units ONCE ONCE IV 01/23/17 17:15 01/23/17 17:16 UNV Heparin Sodium/ Dextrose 250 ml @ 16.29 mls/ hr TITRATE PRN IV 01/23/17 17:15 UNV Family History Noncontributory Social History Denies smoking or alcohol Physical Exam Vital Signs Vital Signs Date Time Temp Pulse Resp B/P (MAP) Pulse Ox O2 Delivery O2 Flow Rate FiO2 01/23/17 15:41 97.4 92 16 130/75 (93) 96 01/23/17 12:14 97.8 97 16 118/66 (83) 93 01/23/17 11:27 93 01/23/17 07:44 98.2 103 16 129/73 (91) 91 01/23/17 07:33 105 01/23/17 06:17 21 01/23/17 02:36 98.7 109 16 139/78 (98) 94 01/22/17 21:45 94 01/22/17 21:41 127 22 119/63 (81) Room Air 01/22/17 20:46 Room Air 01/22/17 20:33 98.2 132 18 112/72 (85) 95 Physical Exam GENERAL: Well-nourished, well-developed patient. SKIN: Warm and dry. HEAD: Normocephalic. EYES: No scleral icterus. No injection or drainage. NECK: Supple, trachea midline. No JVD or lymphadenopathy. CARDIOVASCULAR: Regular rate and rhythm without murmurs, gallops, or rubs. RESPIRATORY: Breath sounds equal bilaterally. No accessory muscle use. GASTROINTESTINAL: Abdomen soft, non-tender, nondistended. EXTREMITIES: No cyanosis, or edema. Gouty arthritis in an night and is wrapped NEUROLOGICAL: Awake, alert, and oriented x 3. Non-focal. Laboratory Laboratory Tests Test 01/22/17 21:05 01/22/17 22:20 01/23/17 02:00 01/23/17 13:05 White Blood Count 19.3 Red Blood Count 4.78 Hemoglobin 12.8 Hematocrit 40.0 Mean Corpuscular Volume 83.7 Mean Corpuscular Hemoglobin 26.8 Mean Corpuscular Hemoglobin Concent 32.0 Red Cell Distribution Width 17.7 Platelet Count 335 Mean Platelet Volume 8.0 Neutrophils (%) (Auto) 84.3 Lymphocytes (%) (Auto) 3.2 Monocytes (%) (Auto) 10.4 Eosinophils (%) (Auto) 0.9 Basophils (%) (Auto) 1.2 Neutrophils # (Auto) 16.2 Lymphocytes # (Auto) 0.6 Monocytes # (Auto) 2.0 Eosinophils # (Auto) 0.2 Basophils # (Auto) 0.2 CBC Comment AUTO DIFF Differential Total Cells Counted 100 Neutrophils % (Manual) 74 Band Neutrophils % 5 Lymphocytes % 2 Monocytes % 16 Eosinophils % 1 Neutrophils # (Manual) 15.6 Metamyelocytes 1 Myelocytes 1 Differential Comment FINAL DIFF MANUAL Platelet Estimate NORMAL Platelet Morphology Comment NORMAL Erythrocyte Sedimentation Rate 22 Blood Urea Nitrogen 45 Creatinine 4.09 Random Glucose 258 Total Protein 7.6 Albumin 2.1 Calcium Level 9.2 Alkaline Phosphatase 137 Aspartate Amino Transf (AST/SGOT) 19 Alanine Aminotransferase (ALT/SGPT) 24 Total Bilirubin 0.9 Sodium Level 129 Potassium Level 4.3 Chloride Level 94 Carbon Dioxide Level 21.9 Anion Gap 13 Estimat Glomerular Filtration Rate 15 C-Reactive Protein 31.00 Lactic Acid Level 1.6 Total Creatine Kinase 103 Creatine Kinase MB LESS THAN 0.5 Troponin I LESS THAN 0.02 Urine Color YELLOW Urine Turbidity HAZY Urine pH 5.5 Urine Specific [place] 1.013 Urine Protein 100 Urine Glucose (UA) TRACE Urine Ketones TRACE Urine Occult Blood SMALL Urine Nitrite NEG Urine Bilirubin NEG Urine Urobilinogen LESS THAN 2.0 Urine Leukocyte Esterase NEG Urine RBC 1 Urine WBC 8 Urine Squamous Epithelial Cells <1 Urine Transitional Epithelial Cells <1 Urine Uric Acid Crystals RARE Urine Amorphous Sediment RARE Urine Bacteria RARE Urine Hyaline Casts 1 Urine Granular Casts 13 Urine Mucus FEW Microscopic Urinalysis Comment CULT NOT INDICATED Urine Eosinophils NONE SEEN Urine Random Creatinine 171 Urine Random Total Protein 209 Urine Random Sodium 27 Urine Protein/Creatinine Ratio 1.22 Test 01/23/17 13:25 White Blood Count 16.5 Red Blood Count 3.85 Hemoglobin 10.4 Hematocrit 31.9 Mean Corpuscular Volume 82.8 Mean Corpuscular Hemoglobin 26.9 Mean Corpuscular Hemoglobin Concent 32.5 Red Cell Distribution Width 17.5 Platelet Count 272 Mean Platelet Volume 7.6 Neutrophils (%) (Auto) 85.3 Lymphocytes (%) (Auto) 4.3 Monocytes (%) (Auto) 9.2 Eosinophils (%) (Auto) 0.5 Basophils (%) (Auto) 0.7 Neutrophils # (Auto) 14.1 Lymphocytes # (Auto) 0.7 Monocytes # (Auto) 1.5 Eosinophils # (Auto) 0.1 Basophils # (Auto) 0.1 CBC Comment AUTO DIFF Differential Comment AUTO DIFF CONFIRMED Platelet Estimate NORMAL Platelet Morphology Comment NORMAL Ovalocytes 1+ Blood Urea Nitrogen 43 Creatinine 3.92 Random Glucose 192 Calcium Level 8.6 Sodium Level 136 Potassium Level 3.9 Chloride Level 102 Carbon Dioxide Level 24.4 Anion Gap 10 Estimat Glomerular Filtration Rate 16 Iron Level 19 Total Iron Binding Capacity 125 Percent Iron Saturation 15.2 Ferritin 2914 Ammonia 13 Vitamin B12 Level 1504 Folate 18.7 Thyroid Stimulating Hormone 3rd Gen 2.060 Date/Time Source Procedure Growth Status 01/22/17 21:05 Blood Peripheral Aerobic Blood Culture - Preliminary NO GROWTH IN 1 DAY Resulted 01/22/17 21:05 Blood Peripheral Anaerobic Blood Culture - Preliminary NO GROWTH IN 1 DAY Resulted Result Diagram: 01/23/17 1325 01/23/17 1325 Imaging Last Impressions Renal Ultrasound 01/23/17 0000 Signed Impressions: Service Date/Time: Monday, January 23, 2017 08:53 - CONCLUSION: 1. Evidence of chronic parenchymal disease of both kidneys. No obstructive uropathy or other acute abnormality demonstrated. 2. Trace ascites, nonspecific. Angelo Garrido MD Lower Extremity Ultrasound 01/23/17 0000 Signed Impressions: Service Date/Time: Monday, January 23, 2017 09:53 - CONCLUSION: Bilateral focal lower extremity DVT involving the posterior tibial veins. Angelo Garrido MD Cervical Spine MRI 01/23/17 0000 Signed Impressions: Service Date/Time: Monday, January 23, 2017 17:01 - CONCLUSION: 1. Multilevel cervical spine degenerative changes as above. 2. Mild degrees of spinal stenosis at C3/C4-C6/C7. No cord compression or cord signal abnormality. 3. Age indeterminate left paracentral/foraminal disc protrusion at C6/C7. 4. Multilevel foraminal stenosis, most severe on the left at C6/C7. Please see individual levels above. 5. No fracture or subluxation of the cervical spine. Angelo Garrido MD Brain MRI 01/23/17 0000 Signed Impressions: Service Date/Time: Monday, January 23, 2017 17:01 - CONCLUSION: 1. No acute stroke or other acute intracranial abnormality demonstrated. 2. Moderate severity chronic white matter changes, nonspecific but most likely related to chronic small vessel disease. 3. Few scattered tiny lacunar infarcts of the brainstem. 4. Given the findings are not entirely specific, clinical evaluation for possible multiple sclerosis recommended. Angelo Garrido MD Head CT [id number]/22/172202 Signed Impressions: Service Date/Time: Sunday, January 22, 2017 22:39 - CONCLUSION: Negative noncontrast CT Benjamin Person MD Chest X-Ray [id number]/22/172202 Signed Impressions: Service Date/Time: Sunday, January 22, 2017 22:18 - CONCLUSION: No acute disease. Benjamin Person MD Wrist X-Ray [id number]/22/[id number] Signed Impressions: Service Date/Time: Sunday, January 22, 2017 21:21 - CONCLUSION: 1. Nondisplaced oblique fracture through the distal ulna. 2. Chronic appearing deformity of the distal ulna as well. 3. Extensive degenerative change and osteopenia. Benjamin Person MD Knee X-Ray [id number]/22/[id number] Signed Impressions: Service Date/Time: Sunday, January 22, 2017 21:17 - CONCLUSION: 1. Evidence of moderate to large joint effusion. 2. No acute fracture or malalignment. 3. Mild 3 compartment osteoarthritic change. Benjamin Person MD Hip and Pelvis X-Ray [id number]/22/172053 Signed Impressions: Service Date/Time: Martin, January 22, 2017 21:10 - CONCLUSION: 1. Mild to moderate degenerative change of both hips with no acute fracture or malalignment. There is flattening and remodeling of the right humeral head. Benjamin Person MD Assessment and Plan Problem List: (1) Acute renal failure ICD Codes: N17.9 - Acute kidney failure, unspecified Plan: Likely dehydrated he does have underlying chronic kidney disease I will continue to hydrate him with half-normal saline at 84 cc an hour Follow BMP Avoid nephrotoxins (2) CKD (chronic kidney disease) stage 3, GFR 30-59 ml/min ICD Codes: N18.3 - Chronic kidney disease, stage 3 (moderate) Plan: Ultrasound revealed chronic kidney disease there is no kidney stones (3) Diabetes ICD Codes: E11.9 - Type 2 diabetes mellitus without complications Plan: Continue to monitor (4) Distal end of ulna fracture, closed ICD Codes: S52.609A - Unspecified fracture of lower end of unspecified ulna, initial encounter for closed fracture Plan: Orthopedic is following Problem Qualifiers (1) Acute renal failure: Qualified Codes: N17.9 - Acute kidney failure, unspecified Laura Liao MD Jan 23, 2017 18:26
[2017-01-23] MEDS: ACETAMINOPHEN/HYDROcodone 325 MG/5 MG TAB PO PRN (19:39)
[2017-01-23 19:58] LABS: HEMATOCRIT 33.6 % (39.0-51.0); MEAN CELL VOLUME 83.5 FL (80.0-100.0); MEAN CORPUSCULAR HEMOGLOBIN 26.8 PG (27.0-34.0); MEAN CORPUSCULAR HGB CONC 32.1 % (32.0-36.0); PLATELET COUNT 288 TH/MM3 (150-450); RED BLOOD COUNT 4.03 MIL/MM3 (4.50-5.90); RED CELL DISTRIBUTION WIDTH 18.1 % (11.6-17.2); REVIEW FLAG FINAL; WHITE BLOOD COUNT 16.1 TH/MM3 (4.0-11.0)
[2017-01-23 20:09] LABS: APTT (PATIENT) 36.6 SEC (24.3-30.1); INTERNATIONAL NORMALIZED RATIO 1.1 RATIO; PROTHROMBIN TIME - PATIENT 11.9 SEC (9.8-11.6)
[2017-01-23] MEDS: HEPARIN-D5W 25,000 U/250 ML 250 ML IV PRN (20:41)
[2017-01-23] MEDS: SODIUM CHLOR 0.45% 1000 ML INJ 1,000 ML IV SCH (20:52)
[2017-01-23 22:18] LABS: HEMOGLOBIN A1a 1.4 %; HEMOGLOBIN A1b 2.8 %; HEMOGLOBIN Ao 78.4 %; HEMOGLOBIN P3 5.5 %
[2017-01-23] MEDS: ACETAMINOPHEN/HYDROcodone 325 MG/7.5 MG TAB PO PRN (23:39)
[2017-01-24] VITALS (11 sets, daily range): BP systolic 123–172; BP diastolic 69–108; PULSE 98–126; RESP 16–20; TEMP 97.8–98.9; O2SAT 93–100
[2017-01-24 02:50] LABS: AUTOMATED NEUTROPHIL # 13.1 TH/MM3 (1.8-7.7); BASOPHIL # 0.1 TH/MM3 (0-0.2); BASOPHIL % 0.5 % (0.0-2.0); EOSINOPHIL # 0.3 TH/MM3 (0-0.4); HEMATOCRIT 31.1 % (39.0-51.0); LYMPH % 6.3 % (9.0-44.0); MEAN CELL VOLUME 82.8 FL (80.0-100.0); MEAN CORPUSCULAR HEMOGLOBIN 26.8 PG (27.0-34.0); MEAN CORPUSCULAR HGB CONC 32.4 % (32.0-36.0); MONO % 8.5 % (0.0-8.0); NEUT % 82.7 % (16.0-70.0); PLATELET COUNT 315 TH/MM3 (150-450); RED BLOOD COUNT 3.76 MIL/MM3 (4.50-5.90); RED CELL DISTRIBUTION WIDTH 17.5 % (11.6-17.2); WHITE BLOOD COUNT 15.8 TH/MM3 (4.0-11.0)
[2017-01-24 02:51] LABS: HEMO FLAGS AUTO DIFF
[2017-01-24 03:01] LABS: APTT (PATIENT) 40.9 SEC (24.3-30.1)
[2017-01-24 03:03] LABS: BICARBONATE 23.7 MEQ/L (21.0-32.0); POTASSIUM 3.5 MEQ/L (3.5-5.1); TOTAL PROTEIN SPE 6.3 GM/DL (6.0-7.6); URIC ACID 9.5 MG/DL (2.6-7.2)
[2017-01-24 04:22] LABS: BANDS 1 % (0-6); CORRECTED NUCLEATED RBC 1 /100 WBC (0-0); EOSINOPHILS 2 % (0-4); METAMYELOCYTES 2 % (0-1); NEUTROPHIL # MANUAL DIFF 13.4 TH/MM3 (1.8-7.7); PLATELET ESTIMATE SMEAR NORMAL (NORMAL); PLATELET MORPHOLOGY NORMAL (NORMAL); POLYS (SEG NEUTROPHILS) 82 % (16-70); SCAN/DIFF FINAL DIFF MANUAL; WBC DIFF SAMPLE 100
[2017-01-24] MEDS: INSULIN ASPART SUPPLEMENTAL SCALE SQ SCH ×4 (06:18→20:38)
[2017-01-24 06:19] LABS: BLOOD GAS BASE EXCESS -2.2 mmol/L (-2-2); BLOOD GAS CARBOXYHEMOGLOBIN 1.4 % (0-4); BLOOD GAS HCO3 21 mmol/L (22-26); BLOOD GAS METHEMOGLOBIN 0.6 % (0-2); BLOOD GAS O2 HGB SATURATION 95 % (90-100); BLOOD GAS OXYGEN CONTENT 15.3 Vol % (12.0-20.0); BLOOD GAS PCO2 31 mmHg (38-42); BLOOD GAS PO2 81 mmHG (61-120); BLOOD GAS TOTAL HGB 11.5 G/DL (12.0-16.0); CRITICAL VALUE NO; DRAW SITE LT RADIAL; FIO2 21 %; NUMBER OF ARTERIAL PUNCTURES 1; OXYGEN DEVICE ROOM AIR; STAT NO; TEMP CORR TO 98.6
[2017-01-24] MEDS: ACETAMINOPHEN/HYDROcodone 325 MG/7.5 MG TAB PO PRN ×2 (07:58→20:28)
[2017-01-24] MEDS: SODIUM CHLORIDE 0.9% FLUSH 10 ML FLUSH IV FLUSH SCH ×2 (07:58→20:27)
[2017-01-24] MEDS: DOCUSATE SODIUM 50 MG/SENNA 8.6 MG TAB PO SCH ×2 (07:59→20:28)
[2017-01-24] MEDS: SODIUM CHLOR 0.45% 1000 ML INJ 1,000 ML IV SCH ×2 (08:01→20:27)
[2017-01-24 10:19] LABS: APTT (PATIENT) 36.1 SEC (24.3-30.1)
--- NOTE | 2017-01-24 10:36 | HHI.PR ---
Subjective Remarks Follow up for fall, lower extremity weakness, acute renal failure. The patient reports continued lower extremity weakness. He also reports his entire body feeling weak. He is requesting help to get cleaned up because he is unable to bathe himself. He reports diffuse pains due to his gouty arthritis. The patient states he has been doing physical therapy and acupuncture as outpatient for his weakness and pains however he reports minimal improvement. Objective Vitals Vital Signs Date Time Temp Pulse Resp B/P (MAP) Pulse Ox O2 Delivery O2 Flow Rate FiO2 01/24/17 07:40 98.3 105 16 145/76 (99) 98 01/24/17 07:31 96 21 01/24/17 05:03 98.0 100 18 127/71 (89) 100 01/24/17 03:31 21 01/24/17 01:54 97.8 98 19 123/69 (87) 97 01/24/17 00:39 18 01/23/17 21:40 98.6 98 18 99/63 (75) 98 01/23/17 20:39 16 01/23/17 15:41 97.4 92 16 130/75 (93) 96 01/23/17 12:14 97.8 97 16 118/66 (83) 93 01/23/17 11:27 93 I/O 01/23/17 01/23/17 01/23/17 01/24/17 01/24/17 01/24/17 07:00 15:00 23:00 07:00 15:00 23:00 Intake Total 1350 ml Output Total 225 ml 600 ml 375 ml Balance 1125 ml -600 ml -375 ml Intake IV Total 1350 ml Output Urine Total 225 ml 600 ml 375 ml # Voids 5 Result Diagram: 01/24/17 0234 01/24/17 0234 Imaging Last Impressions Renal Ultrasound 01/23/17 0000 Signed Impressions: Service Date/Time: Monday, January 23, 2017 08:53 - CONCLUSION: 1. Evidence of chronic parenchymal disease of both kidneys. No obstructive uropathy or other acute abnormality demonstrated. 2. Trace ascites, nonspecific. Angelo Garrido MD Lumbar Spine MRI 01/23/17 0000 Signed Impressions: Service Date/Time: Monday, January 23, 2017 17:01 - CONCLUSION: 1. At L4-5 is a broad-based disc protrusion with severe central canal and lateral recess stenosis and flattening of the exiting right L4 nerve root. 2. L5-S1 there is a disc protrusion and moderate stenosis with flattening of the exiting L5 nerve roots bilaterally. 3. At L3-4 there is a moderate to severe central stenosis and lateral recess stenosis with mild foraminal stenosis. 4. No acute fracture or spondylolisthesis. Trace Holloway MD Lower Extremity Ultrasound 01/23/17 Signed Impressions: Service Date/Time: Monday, January 23, 2017 09:53 - CONCLUSION: Bilateral focal lower extremity DVT involving the posterior tibial veins. Angelo Garrido MD Cervical Spine MRI 01/23/17 Signed Impressions: Service Date/Time: Monday, January 23, 2017 17:01 - CONCLUSION: 1. Multilevel cervical spine degenerative changes as above. 2. Mild degrees of spinal stenosis at C3/C4-C6/C7. No cord compression or cord signal abnormality. 3. Age indeterminate left paracentral/foraminal disc protrusion at C6/C7. 4. Multilevel foraminal stenosis, most severe on the left at C6/C7. Please see individual levels above. 5. No fracture or subluxation of the cervical spine. Angelo Garrido MD Brain MRI 01/23/17 Signed Impressions: Service Date/Time: Monday, January 23, 2017 17:01 - CONCLUSION: 1. No acute stroke or other acute intracranial abnormality demonstrated. 2. Moderate severity chronic white matter changes, nonspecific but most likely related to chronic small vessel disease. 3. Few scattered tiny lacunar infarcts of the brainstem. 4. Given the findings are not entirely specific, clinical evaluation for possible multiple sclerosis recommended. Angelo Garrido MD Head CT [id number]/22/172202 Signed Impressions: Service Date/Time: Sunday, January 22, 2017 22:39 - CONCLUSION: Negative noncontrast CT Benjamin Person MD Chest X-Ray [id number]/22/172202 Signed Impressions: Service Date/Time: Sunday, January 22, 2017 22:18 - CONCLUSION: No acute disease. Benjamin Person MD Wrist X-Ray [id number]/22/172053 Signed Impressions: Service Date/Time: Sunday, January 22, 2017 21:21 - CONCLUSION: 1. Nondisplaced oblique fracture through the distal ulna. 2. Chronic appearing deformity of the distal ulna as well. 3. Extensive degenerative change and osteopenia. Benjamin Person MD Knee X-Ray 01/22/172053 Signed Impressions: Service Date/Time: Sunday, January 22, 2017 21:17 - CONCLUSION: 1. Evidence of moderate to large joint effusion. 2. No acute fracture or malalignment. 3. Mild 3 compartment osteoarthritic change. Benjamin Person MD Hip and Pelvis X-Ray [id number]/22/172053 Signed Impressions: Service Date/Time: Sunday, January 22, 2017 21:10 - CONCLUSION: 1. Mild to moderate degenerative change of both hips with no acute fracture or malalignment. There is flattening and remodeling of the right humeral head. Benjamin Person MD Objective Remarks GENERAL: Well-nourished, well-developed middle aged male patient in [facility]. Drowsy , falling asleep during exam. SKIN: Warm and dry. No rash. Diffuse gouty arthritis. HEENT: Normocephalic. Atraumatic. Pupils equal and round. Mucous membranes pink and moist. NECK: Supple. Trachea midline. CARDIOVASCULAR: Regular rate and rhythm. S1, S2 noted. No murmur appreciated. RESPIRATORY: No accessory muscle use. Clear to auscultation. Breath sounds equal bilaterally. GASTROINTESTINAL: Abdomen soft, non-tender, nondistended. Normoactive bowel sounds x4. MUSCULOSKELETAL: No obvious deformities. 1+ bilateral lower extremity pitting edema. RUE in splint. NEUROLOGICAL: Awake and alert. No obvious cranial nerve deficits. Motor grossly within normal limits. 3/5 muscle strength in bilateral lower extremities , 4/5 strength in bilateral upper extremities. Normal speech. PSYCHIATRIC: Appropriate mood and affect; insight and judgment normal. Medications and IVs Current Medications Medications (Trade) Dose Ordered Sig/Rosalia Route Start Time Stop Time Status Last Admin (NS Flush) 2 ml UNSCH PRN IV FLUSH 01/23/17 00:30 (NS Flush) 2 ml BID IV FLUSH 01/23/17 09:00 (Tylenol) 650 mg Q4H PRN PO 01/23/17 00:30 (Zofran Inj) 4 mg Q6H PRN IVP 01/23/17 00:30 ([place] 5-325 Mg) 1 tab Q4H PRN PO 01/23/17 00:30 01/23/17 19:39 ([place] 7.5-325 Mg) 1 tab Q4H PRN PO 01/23/17 00:30 01/24/17 07:58 (Morphine Inj) 3 mg Q3H PRN IV 01/23/17 00:30 (Narcan Inj) 0.4 mg UNSCH PRN IV 01/23/17 00:30 (Edna-Colace) 1 tab BID PO 01/23/17 09:00 (Milk Of Magnesia Liq) 30 ml Q12H PRN PO 01/23/17 00:30 (Senokot) 17.2 mg Q12H PRN PO 01/23/17 00:30 (Dulcolax Supp) 10 mg DAILY PRN RECTAL 01/23/17 00:30 (D50w (Vial) Inj) 50 ml UNSCH PRN IV 01/23/17 07:45 (Glucagon Inj) 1 mg UNSCH PRN OTHER 01/23/17 07:45 (NovoLOG SUPPLEMENTAL SCALE) 1 ACHS SLIDING SCALE SQ 01/23/17 11:00 01/23/17 14:02 Heparin Sodium/ Dextrose 250 ml @ 16.29 mls/ hr TITRATE PRN IV 01/23/17 17:15 01/23/17 20:41 Sodium Chloride 1,000 ml @ 84 mls/hr [id number] IV 01/23/17 18:30 01/24/17 08:01 A/P Problem List: (1) Distal end of ulna fracture, closed ICD Code: S52.609A - Unspecified fracture of lower end of unspecified ulna, initial encounter for closed fracture (2) Diabetes mellitus ICD Code: E11.9 - Type 2 diabetes mellitus without complications Assessment and Plan 61-year-old male with history of diabetes mellitus, gouty arthritis, COPD secondary to recurrent nephrolithiasis per the patient, presents with multiple complaints including bilateral lower extremity weakness, falls, right arm pain. Right Distal Ulna Oblique Fracture: RUE xray images reviewed. - consulted ortho, nonsurgical, recommends continuing splint, plan to transition to cast as outpatient - Continue norco prn and IV morphine prn breakthrough pain Concern for septic arthritis: patient met sepsis criteria with leukocytosis WBC 19.3K, tachycardia HR 132, however afebrile, lactic acid 1.6. Patient has also been on recent steroids as outpatient. - elevations in CRP - 31 and ESR - 22 - initially given antibiotics however evaluation by ortho, not concerned for septic joint, will d/c antibiotics and cancel ID consult Acute Renal Failure on CKD stage 3-4: no previous labs to compare. - No prior labs available for comparison - BUN 45, creatinine 4.09, estimated gFR - 15 - continue on IVF, renal function slowly improving - avoid nephrotoxins - Renal U/S showed evidence of chronic parenchymal disease both kidneys; no obstructive uropathy - consulted nephrology, appreciate assistance Severe Lumbar Spine Stenosis with Significant Lower Extremity Weakness and Recurrent Falls: progressive over the past few months, failed outpatient physical therapy and acupuncture - C-spine MRI showed Multilevel cervical spine degenerative changes; Mild degrees of spinal stenosis at C3/C4-C6/C7; No cord compression or cord signal abnormality; Age indeterminate left paracentral/foraminal disc protrusion at C6/ C7; Multilevel foraminal stenosis, most severe on the left at C6/C7; No fracture or subluxation of the cervical spine. - L-spine MRI showed L4-5 broad-based disc protrusion with severe central canal and lateral recess stenosis and flattening of the exiting right L4 nerve root; L5-S1 there is a disc protrusion and moderate stenosis with flattening of the exiting L5 nerve roots bilaterally; At L3-4 there is a moderate to severe central stenosis and lateral recess stenosis with mild foraminal stenosis; No acute fracture or spondylolisthesis. - Brain MRI showed No acute stroke or other acute intracranial abnormality demonstrated; Moderate severity chronic white matter changes, nonspecific but most likely related to chronic small vessel disease; Few scattered tiny lacunar infarcts of the brainstem; Given the findings are not entirely specific, clinical evaluation for possible multiple sclerosis recommended. - Vit B12, folate, TSH, ammonia all wnl, RPR negative - Consult PT, recommending rehab, patient unable to ambulate - Consult neurology, discussed with Dr. Crenshaw who will evaluate the patient - Consult neurosurgery, discussed with Megha Ha PA-C, patient likely needs surgical intervention tomorrow or Sunday Bilateral DVT: patient complains of BLE edema and both legs feel "full" and "heavy" - Doppler U/S positive for bilateral DVT, started on Heparin drip for now; consider transition to Eliquis; await neurosurgery eval - Discussed with Megha Ha PA-C, patient likely needs surgical intervention, recommends IVC placement, IR consulted Type 2 Diabetes Mellitus: patient unsure of his home meds or dosing, RN to verify with his pharmacy - Continue Accu-Cheks before meals and at bedtime with low-dose NovoLog sliding scale coverage - Hypoglycemia protocol - HgbA1c 8.5 - 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 Will restart home meds as indicated. Discharge Planning Admit to inpatient with multiple acute medical problems including ARF and severe spinal stenosis. Patient will absolutely need rehab at discharge. Discussed with case management. Also discussed with Dr. Chairez, Dr. Crenshaw, Megha Ha PA-C. Shereen Pérez PA-C Jan 24, 2017 10:36
[2017-01-24] MEDS ORDERED: AMLO10TA2 PO (11:03)
[2017-01-24] MEDS ORDERED: TRAM50TA PO (11:03)
[2017-01-24] MEDS ORDERED: ATOR10TA15 PO (11:05)
[2017-01-24 11:09] LABS: ALBUMIN SPE 2.46 GM/DL (3.50-5.00); ALPHA 1 GLOBULIN 0.63 GM/DL (0.11-0.29); ALPHA 2 GLOBULIN 1.39 GM/DL (0.22-1.00); BETA GLOBULINS (SPE) 1.17 GM/DL (0.53-1.03)
[2017-01-24] MEDS: ATENOLOL 25 MG TAB PO SCH (13:20)
[2017-01-24] MEDS: HEPARIN-D5W 25,000 U/250 ML 250 ML IV PRN (13:29)
--- NOTE | 2017-01-24 14:46 | HHI.NPPN ---
Subjective History of Present Illness 61-year-old with history of urinary stone Review of Systems General Constitutional: Fatigue Objective Data Data Vital Signs Date Time Temp Pulse Resp B/P (MAP) Pulse Ox O2 Delivery O2 Flow Rate FiO2 01/24/17 14:23 98.6 115 18 140/82 (101) 97 01/24/17 14:10 162/108 (126) 01/24/17 12:00 114 01/24/17 08:00 107 01/24/17 07:40 98.3 105 16 145/76 (99) 98 01/24/17 07:31 96 21 01/24/17 05:03 98.0 100 18 127/71 (89) 100 01/24/17 03:31 21 01/24/17 01:54 97.8 98 19 123/69 (87) 97 01/24/17 00:39 18 01/23/17 21:40 98.6 98 18 99/63 (75) 98 01/23/17 20:39 16 01/23/17 15:41 97.4 92 16 130/75 (93) 96 -: 01/24/17 0234 01/24/17 0234 Physical Exam General Appearance: Well Developed Neck Neck Exam: Neck Supple Pulmonary Resp Exam: Clear Bilaterally, Breath Sounds Equal Cardiology CV Exam: Regular, Normal Sinus Rhythm Gastrointestinal/Abdomen GI Exam: Soft, Non-Tender, Bowel Sounds Present Extremeties Extremities Exam: No Edema Assessment/Plan Problem List: (1) Acute renal failure ICD Codes: N17.9 - Acute kidney failure, unspecified Plan: Likely dehydrated he does have underlying chronic kidney disease Creatinine 3.7 slowly declined Uric acid is high May need allopurinol Continue to observe RIOS/SPEP neg Patient can be followed as outpatient I discussed his progress with Nurse apparently had Morphine reaction BP shot up confused and given Atenolol BP is better (2) CKD (chronic kidney disease) stage 3, GFR 30-59 ml/min ICD Codes: N18.3 - Chronic kidney disease, stage 3 (moderate) Plan: Ultrasound revealed chronic kidney disease there is no kidney stones (3) Diabetes ICD Codes: E11.9 - Type 2 diabetes mellitus without complications Plan: Continue to monitor (4) Distal end of ulna fracture, closed ICD Codes: S52.609A - Unspecified fracture of lower end of unspecified ulna, initial encounter for closed fracture Plan: Orthopedic is following Problem Qualifiers (1) Acute renal failure: Qualified Codes: N17.9 - Acute kidney failure, unspecified Laura Liao MD Jan 24, 2017 14:46
[2017-01-24 15:14] LABS: APTT (PATIENT) 36.4 SEC (24.3-30.1)
--- NOTE | 2017-01-24 19:25 | MB ---
cc: HORACIO FERGUSON M.D. DATE OF CONSULTATION 01/24/2017 REASON FOR CONSULTATION Generalized weakness. HISTORY OF PRESENT ILLNESS Mr. Kerr is a 61-year-old man who states he has about a 2 or 3 day history of weakness involving mainly the legs but also the arms which came on fairly gradually but has been progressive. He also has back pain. He fell recently resulting in a fracture of the right arm. He denies any double vision or speech changes. PERSONAL HISTORY He is a history of: 1. Diabetes. 2. Gouty arthritis. 3. Hypertension. 4. Hyperlipidemia. 5. Kidney stones. 6. Chronic kidney disease. MEDICATIONS Currently: 1. Atenolol 25 mg daily. 2. Lipitor 10 mg daily. 3. Heparin. 4. Edna-Colace. 5. Tylenol p.r.n. 6. Zofran p.r.n. 7. Hydrocodone as needed for pain. 8. Naloxone p.r.n. 9. Heparin IV. NEUROLOGIC EXAMINATION VITAL SIGNS: Blood pressure 172/75, pulse 116, temperature is 98.6 degrees. Higher cortical functions are normal. Cranial nerves intact. He has no ptosis. The extraocular movements are normal. On motor exam he has some give-way weakness in the upper extremities at 4+/5 proximal and distal. He is weak in the lower extremities, difficulty raising the legs. He has 3/5 strength of the iliopsoas symmetric, 4/5 quads, 4/5 hamstring, 4/5 tib anterior. Sensory exam diminished sensation distally in both lower extremities . Reflexes are areflexic in both upper and lower extremities. There is no Babinski sign present. LABORATORY DATA White count 15,800, hemoglobin 10.1, hematocrit 31%, platelet count is 315,000. Sed rate 22. Sodium is 136, potassium 3.5, chloride 102, CO2 23.7. The BUN is 46, creatinine 3.7. Glucose is 123, calcium is 8.4. B12 1504, folate 18.7. TSH 2.060. APTT 36.4, PT 11.9, INR 1.1. RPR nonreactive. RIOS negative. CRP is elevated at 31. CPK is normal at 103. SPEP hypoalbuminemia, no abnormal bands noted. IMPRESSION Generalized weakness. I did review the MRI of the brain which does show white matter lesions likely chronic ischemic demyelinization, rule out MS. He had an MRI cervical spine as well which revealed spondylosis at several levels but no evidence of any significant cord compression. The lumbar MRI reveals severe stenosis at L4-5, The differential would include thoracic myelopathy, multiple sclerosis would be in the differential although with no prior history would be less likely. A Guillain-Blanco syndrome also in the differential. Myositis or myopathy would be less likely with a normal CPK. Transverse myelitis I think would be less likely. RECOMMENDATIONS I would like to get an MRI of the thoracic spine. A lumbar puncture would be helpful for further evaluation for MS or possible Guillain-Blanco however, he cannot have this at the present time because he is on IV heparin for DVT. Would recommend consideration for EMG nerve conduction study which may be helpful in evaluation for possible neuropathy or Guillain-Blanco. MD KENNY Jerry/JAQUELINE /4:26 PM /6:55 PM
--- NOTE | 2017-01-24 19:52 | PD.CONS ---
[facility] Service neurosug Consult Requested By Dr Crenshaw Primary Care Physician Unknown History of Present Illness Mr. Kerr is a 61-year-old man with history of osteoarthritis, diabetes mellitus , hypertension and hyperlipidemia,.gout and chronic renal failure who states he has about a 2 or 3 day history of weakness involving his upper and lower extremities, which came on fairly gradually, but has been progressive. He also has chronic back pain. The patient says he fell last week and severe pain was noted in right wrist, resulting in a fracture of the right arm. He did not suffer a head injury. Denies loss of consciousness. Denies seizure activity. Denies incontinence of stool or urine or tongue biting. He denies any double vision or speech changes. He reports chronic kidney disease, in 2004 had multiple kidney stones. She denies significant sensory loss. He denies incontinence of stool or urinary retention. MRI of the lumbar spine show evidence of multilevel spinal stenosis. Neurosurgical consultation was requested Review of Systems Constitutional: DENIES: Diaphoretic episodes, Fatigue, Fever, Weight gain, Weight loss, Chills, Dizziness, Change in appetite, Night Sweats Endocrine: DENIES: Heat/cold intolerance, Polydipsia, Polyuria, Polyphagia Eyes: DENIES: Blurred vision, Diplopia, Eye inflammation, Eye pain, Vision loss , Photosensitivity, Double Vision Ears, nose, mouth, throat: DENIES: Tinnitus, Hearing loss, Vertigo, Nasal discharge, Oral lesions, Throat pain, Hoarseness, Ear Pain, Running Nose, Epistaxis, Sinus Pain, Toothache, Odynophagia Respiratory: DENIES: Apneas, Cough, Snoring, Wheezing, Hemoptysis, Sputum production, Shortness of breath Cardiovascular: DENIES: Chest pain, Palpitations, Syncope, Dyspnea on Exertion , PND, Lower Extremity Edema, Orthopnea, Claudication Gastrointestinal: DENIES: Abdominal pain, Black stools, Bloody stools, Constipation, Diarrhea, Nausea, Vomiting, Difficulty Swallowing, Anorexia Genitourinary: DENIES: Sexual dysfunction, Urinary frequency, Urinary incontinence, Urgency, Hematuria, Dysuria, Nocturia, Penile Discharge, Testicular Pain, Testicular Swelling Musculoskeletal: COMPLAINS OF: Joint pain, Muscle aches, Back pain, Neck pain, DENIES: Stiffness, Joint Swelling Integumentary: DENIES: Abnormal pigmentation, Nail changes, Pruritus, Rash Hematologic/lymphatic: DENIES: Bruising, Lymphadenopathy Immunologic/allergic: DENIES: Eczema, Urticaria Neurologic: COMPLAINS OF: Abnormal gait, Localized weakness, DENIES: Headache, Paresthesias, Seizures, Speech Problems, Tremor, Poor Balance Psychiatric: DENIES: Anxiety, Confusion, Mood changes, Depression, Hallucinations, Agitation, Suicidal Ideation, Homicidal Ideation, Delusions Past Family Social History Allergies: Coded Allergies: levofloxacin (Verified Allergy, Severe, 01/22/17) Past Medical History 1. Diabetes. 2. Gouty arthritis. 3. Hypertension. 4. Hyperlipidemia. 5. Kidney stones. 6. Chronic kidney disease. Reported Medications 1. Atenolol 25 mg daily. 2. Lipitor 10 mg daily. 3. Heparin. 4. Edna-Colace. 5. Tylenol p.r.n. 6. Zofran p.r.n. 7. Hydrocodone as needed for pain. 8. Naloxone p.r.n. 9. Heparin IV. Active Ordered Medications Current Medications Sodium Chloride (NS Flush) 2 ml UNSCH PRN IVF FLUSH AFTER USING IV ACCESS; Start 01/22/17 at 21:00; Stop 01/23/17 at 00:51; Status DC Sodium Chloride 1,000 ml @ 999 mls/hr BOLUS ONCE IV Last administered on 21:40; Start 01/22/17 at 21:00; Stop 01/22/17 at 22:00; Status DC Morphine Sulfate (Morphine Inj) 4 mg ONCE ONCE IV PUSH Last administered on 21:40; Start 01/22/17 at 21:00; Stop 01/22/17 at 21:03; Status DC Vancomycin HCl 1000 mg/Sodium Chloride 250 ml @ 250 mls/hr ONCE ONCE IV Last administered on 01/22/17 23:26; Start 01/22/17 at 22:00; Stop 01/22/17 at 22:59; Status DC Piperacillin Sod/ Tazobactam Sod 100 ml @ 200 mls/hr ONCE ONCE IV Last administered on 01/22/17 23:06; Start 01/22/17 at 22:00; Stop 01/22/17 at 22:29; Status DC Sodium Chloride 1,000 ml @ 999 mls/hr BOLUS ONCE IV Last administered on 23:06; Start 01/22/17 at 22:00; Stop 01/22/17 at 23:00; Status DC Sodium Chloride 1,000 ml @ 75 mls/hr [id number] IV Last administered on 01/23/17 12:23; Start 01/23/17 at 00:30; Stop 01/23/17 at 20:08; Status DC Sodium Chloride (NS Flush) 2 ml UNSCH PRN IV FLUSH FLUSH AFTER USING IV ACCESS ; Start 01/23/17 at 00:30 Sodium Chloride (NS Flush) 2 ml BID IV FLUSH ; Start 01/23/17 at 09:00 Acetaminophen (Tylenol) 650 mg Q4H PRN PO TEMP > 100.4; Start 01/23/17 at 00:30 Ondansetron HCl (Zofran Inj) 4 mg Q6H PRN IVP NAUSEA OR VOMITING; Start at 00:30 Acetaminophen/ Hydrocodone Bitart ([place] 5-325 Mg) 1 tab Q4H PRN PO PAIN SCALE 3 TO 5 Last administered on 01/23/17 19:39; Start 01/23/17 at 00:30 Acetaminophen/ Hydrocodone Bitart ([place] 7.5-325 Mg) 1 tab Q4H PRN PO PAIN SCALE 6 TO 10 Last administered on 01/25/17 08:42; Start 01/23/17 at 00:30 Morphine Sulfate (Morphine Inj) 3 mg Q3H PRN IV BREAKTHROUGH PAIN Last administered on 01/24/17 11:46; Start 01/23/17 at 00:30; Stop 01/24/17 at 13:02; Status DC Naloxone HCl (Narcan Inj) 0.4 mg UNSCH PRN IV SEE LABEL COMMENTS; Start at 00:30 Senna/Docusate Sodium (Edna-Colace) 1 tab BID PO Last administered on 01/25/17 08:47; Start 01/23/17 at 09:00 Magnesium Hydroxide (Milk Of Magnesia Liq) 30 ml Q12H PRN PO MILD - MODERATE CONSTIPATION; Start 01/23/17 at 00:30 Sennosides (Senokot) 17.2 mg Q12H PRN PO MODERATE - SEVERE CONSTIPATION; Start 01/23/17 at 00:30 Bisacodyl (Dulcolax Supp) 10 mg DAILY PRN RECTAL SEVERE CONSITIPATION; Start at 00:30 Piperacillin Sod/ Tazobactam Sod 100 ml @ 200 mls/hr Q6H IV Last administered on 01/23/17 05:39; Start 01/23/17 at 06:00; Stop 01/23/17 at 11:48; Status DC Dextrose (D50w (Vial) Inj) 50 ml UNSCH PRN IV HYPOGLYCEMIA-SEE COMMENTS; Start 01/23/17 at 07:45 Glucagon (Glucagon Inj) 1 mg UNSCH PRN OTHER HYPOGLYCEMIA-SEE COMMENTS; Start 01/23/17 at 07:45 Insulin Aspart (NovoLOG SUPPLEMENTAL SCALE) 1 ACHS SLIDING SCALE SQ Last administered on 01/23/17 14:02; Start 01/23/17 at 11:00 Heparin Sodium (Porcine) (Heparin Inj) 5,000 units Q8HR SQ Last administered on 01/23/17 14:00; Start 01/23/17 at 14:00; Stop 01/23/17 at 17:07; Status DC Insulin Aspart (NovoLOG INJ) 10 units ONCE ONCE SQ Last administered on 10:11; Start 01/23/17 at 09:45; Stop 01/23/17 at 10:02; Status DC Piperacillin Sod/ Tazobactam Sod 50 ml @ 100 mls/hr Q6HR IV Last administered on 01/23/17 19:23; Start 01/23/17 at 12:00; Stop 01/23/17 at 21:15; Status DC Heparin Sodium (Porcine) (Heparin Inj) 7,000 units ONCE ONCE IV Last administered on 01/23/17 20:39; Start 01/23/17 at 17:15; Stop 01/23/17 at 18:15; Status DC Heparin Sodium/ Dextrose 250 ml @ 16.29 mls/ hr TITRATE PRN IV Coagulation management Last administered on 01/25/17 04:32; Start 01/23/17 at 17:15; Stop 01/25/17 at 14:13; Status DC Sodium Chloride 1,000 ml @ 84 mls/hr [id number] IV Last administered on 01/25/17 06:09; Start 01/23/17 at 18:30 Atenolol (Tenormin) 25 mg DAILY PO Last administered on 01/25/17 08:47; Start 01/24/17 at 13:00 Atorvastatin Calcium (Lipitor) 10 mg HS PO Last administered on 01/24/17 20:28 ; Start 01/24/17 at 21:00 Clonidine (Catapres) 0.1 mg Q6H PRN PO SBP> OR = 180, DBP> OR = 100; Start 01/24 at 18:00 Fentanyl Citrate (fentaNYL INJ) 100 mcg STK-MED ONCE .ROUTE Last administered on 01/25/17 10:31; Start 01/25/17 at 10:31; Stop 01/25/17 at 10:32; Status DC Fentanyl Citrate (fentaNYL INJ) 100 mcg STK-MED ONCE .ROUTE ; Start 01/25/17 at 10:31; Stop 01/25/17 at 10:32; Status DC Midazolam HCl (Versed Inj) 2 mg STK-MED ONCE .ROUTE ; Start 01/25/17 at 10:31; Stop 01/25/17 at 10:32; Status DC Midazolam HCl (Versed Inj) 2 mg STK-MED ONCE .ROUTE ; Start 01/25/17 at 10:31; Stop 01/25/17 at 10:32; Status DC Iohexol (Omnipaque 350 Inj) 20 ml STK-MED ONCE IV PUSH ; Start 01/25/17 at 11:02 ; Stop 01/25/17 at 11:05; Status DC Family History His family history was reviewed and is noncontributory to this event and his current complains Social History Tobacco: never Alcohol: nothing in the past 9 or 10 years Illicit Drugs: denies Physical Exam Vital Signs Vital Signs Date Time Temp Pulse Resp B/P (MAP) Pulse Ox O2 Delivery O2 Flow Rate FiO2 01/24/17 19:35 98.9 116 20 144/72 (96) 97 01/24/17 16:05 98.6 116 18 172/75 (107) 93 01/24/17 14:23 98.6 115 18 140/82 (101) 97 01/24/17 14:10 162/108 (126) 01/24/17 12:00 114 01/24/17 08:00 107 01/24/17 07:40 98.3 105 16 145/76 (99) 98 01/24/17 07:31 96 21 01/24/17 05:03 98.0 100 18 127/71 (89) 100 01/24/17 03:31 21 01/24/17 01:54 97.8 98 19 123/69 (87) 97 01/24/17 00:39 18 01/23/17 21:40 98.6 98 18 99/63 (75) 98 01/23/17 20:39 16 Physical Exam The patient is alert, confused, oriented to self. Cranial nerve examination demonstrates the pupils to be equal, round, and reactive to light. Extra-ocular movements are intact with normal convergence. Facial motor function appears normal and symmetrical. Face sensation, hearing, visual allen, and olfaction can not be assessed properly due to the patients condition. The patient has an intact corneal reflex and a gag reflex. Sternocleidomastoid and trapezius have normal and symmetrical strength. Other cranial nerves are intact. Neck is soft and supple. Cervical spine has a normal range of motion of the cervical spine without pain. There is no tenderness to palpation to the spinous processes or paraspinal muscles. Motor bulk normal. On motor exam he has give-way weakness in the upper extremities at 4+/5 proximal and distal. his right arm is in a cast. He is weak in the lower extremities, with difficulty raising the legs against gravity 3/5 strength of the iliopsoas symmetric, 4/5 quads, 4/5 hamstring, 4/5 tib anterior. Sensory exam diminished sensation distally in both lower extremities Deep tendom Reflexes are areflexic in both upper and lower extremities. There is no Babinski sign present. Cerebellar examination is limited due to the patient condition, but no obvious deficits are noted. Laboratory Laboratory Tests Test 01/24/17 02:34 01/24/17 08:38 01/24/17 14:30 White Blood Count 15.8 Red Blood Count 3.76 Hemoglobin 10.1 Hematocrit 31.1 Mean Corpuscular Volume 82.8 Mean Corpuscular Hemoglobin 26.8 Mean Corpuscular Hemoglobin Concent 32.4 Red Cell Distribution Width 17.5 Platelet Count 315 Mean Platelet Volume 7.6 Neutrophils (%) (Auto) 82.7 Lymphocytes (%) (Auto) 6.3 Monocytes (%) (Auto) 8.5 Eosinophils (%) (Auto) 2.0 Basophils (%) (Auto) 0.5 Neutrophils # (Auto) 13.1 Lymphocytes # (Auto) 1.0 Monocytes # (Auto) 1.4 Eosinophils # (Auto) 0.3 Basophils # (Auto) 0.1 CBC Comment AUTO DIFF Differential Total Cells Counted 100 Neutrophils % (Manual) 82 Band Neutrophils % 1 Lymphocytes % 7 Monocytes % 6 Eosinophils % 2 Neutrophils # (Manual) 13.4 Metamyelocytes 2 Nucleated Red Blood Cells 1 Differential Comment FINAL DIFF MANUAL Platelet Estimate NORMAL Platelet Morphology Comment NORMAL Red Cell Morphology Comment NORMAL Activated Partial Thromboplast Time 40.9 36.1 36.4 Blood Urea Nitrogen 46 Creatinine 3.70 Random Glucose 123 Calcium Level 8.4 Phosphorus Level 4.4 Uric Acid 9.5 Sodium Level 136 Potassium Level 3.5 Chloride Level 102 Carbon Dioxide Level 23.7 Anion Gap 10 Estimat Glomerular Filtration Rate 17 Total Protein 6.3 Albumin 2.46 Albumin/Globulin Ratio 0.64 Zwdon-7-Iofpawyam 0.63 Fcbut-0-Epqqsmthx 1.39 Beta Globulins 1.17 Gamma Globulins 0.66 Electrophoresis Pathologist Comment Anti-Nuclear Antibody Screen NEG Date/Time Source Procedure Growth Status 01/22/17 21:05 Blood Peripheral Aerobic Blood Culture - Preliminary NO GROWTH IN 2 DAYS Resulted 01/22/17 21:05 Blood Peripheral Anaerobic Blood Culture - Preliminary NO GROWTH IN 2 DAYS Resulted Result Diagram: 01/24/17 0234 01/24/17 0234 Imaging Last 48 hours Impressions Renal Ultrasound 01/23/17 0000 Signed Impressions: Service Date/Time: Monday, January 23, 2017 08:53 - CONCLUSION: 1. Evidence of chronic parenchymal disease of both kidneys. No obstructive uropathy or other acute abnormality demonstrated. 2. Trace ascites, nonspecific. Angelo Garrido MD Lumbar Spine MRI 01/23/17 0000 Signed Impressions: Service Date/Time: Monday, January 23, 2017 17:01 - CONCLUSION: 1. At L4-5 is a broad-based disc protrusion with severe central canal and lateral recess stenosis and flattening of the exiting right L4 nerve root. 2. L5-S1 there is a disc protrusion and moderate stenosis with flattening of the exiting L5 nerve roots bilaterally. 3. At L3-4 there is a moderate to severe central stenosis and lateral recess stenosis with mild foraminal stenosis. 4. No acute fracture or spondylolisthesis. Trace Holloway MD Lower Extremity Ultrasound 01/23/17 Signed Impressions: Service Date/Time: Monday, January 23, 2017 09:53 - CONCLUSION: Bilateral focal lower extremity DVT involving the posterior tibial veins. Angelo Garrido MD Cervical Spine MRI 01/23/17 Signed Impressions: Service Date/Time: Monday, January 23, 2017 17:01 - CONCLUSION: 1. Multilevel cervical spine degenerative changes as above. 2. Mild degrees of spinal stenosis at C3/C4-C6/C7. No cord compression or cord signal abnormality. 3. Age indeterminate left paracentral/foraminal disc protrusion at C6/C7. 4. Multilevel foraminal stenosis, most severe on the left at C6/C7. Please see individual levels above. 5. No fracture or subluxation of the cervical spine. Angelo Garrido MD Brain MRI 01/23/17 Signed Impressions: Service Date/Time: Monday, January 23, 2017 17:01 - CONCLUSION: 1. No acute stroke or other acute intracranial abnormality demonstrated. 2. Moderate severity chronic white matter changes, nonspecific but most likely related to chronic small vessel disease. 3. Few scattered tiny lacunar infarcts of the brainstem. 4. Given the findings are not entirely specific, clinical evaluation for possible multiple sclerosis recommended. Angelo Garrido MD Head CT [id number]/22/[id number] Signed Impressions: Service Date/Time: Sunday, January 22, 2017 22:39 - CONCLUSION: Negative noncontrast CT Benjamin Person MD Chest X-Ray [id number]/22/[id number] Signed Impressions: Service Date/Time: Sunday, January 22, 2017 22:18 - CONCLUSION: No acute disease. Benjamin Person MD Wrist X-Ray [id number] Signed Impressions: Service Date/Time: Sunday, January 22, 2017 21:21 - CONCLUSION: 1. Nondisplaced oblique fracture through the distal ulna. 2. Chronic appearing deformity of the distal ulna as well. 3. Extensive degenerative change and osteopenia. Benjamin Person MD Knee X-Ray [id number] Signed Impressions: Service Date/Time: Sunday, January 22, 2017 21:17 - CONCLUSION: 1. Evidence of moderate to large joint effusion. 2. No acute fracture or malalignment. 3. Mild 3 compartment osteoarthritic change. Benjamin Person MD Knee X-Ray [id number] Signed Impressions: Service Date/Time: Sunday, January 22, 2017 21:14 - CONCLUSION: 1. No acute fracture or malalignment. 2. Soft tissue swelling and osteoarthritic change. 3. Joint effusion Benjamin Person MD Hip and Pelvis X-Ray [id number] Signed Impressions: Service Date/Time: Sunday, January 22, 2017 21:10 - CONCLUSION: 1. Mild to moderate degenerative change of both hips with no acute fracture or malalignment. There is flattening and remodeling of the right humeral head. Benjamin Person MD Attending Statement I reviewedn hisclinical and radiological studies. MRI cervical spineshowed diffuse spondylosis at several levels but no evidence of spinal cord compression. The lumbar MRI reveals severe stenosis at L4-5, but this does not explain his neurological deficits. Differential would include thoracic myelopathy, multiple sclerosis Guillain-Premier syndromem, Myositis or myopathy,Transverse myelitis Neuro checks in a serial fashion. RECOMMEND MRI of the thoracic spine. A lumbar puncture is also indicated for further evaluation He has a DVT and he is on a heparin drip. Recommend placement of Rachel dilter and to discontinue heparin Fracture of lower end of ulna, Consult orthopedic Recommend EMG and nerve conduction studies for evaluation for possible neuropathy or Guillain-Premier. Pulmonary.. Continue aggressive pulmonary toilette, nasotracheal suction, and breathing treatments with nebulizers. Nutrition. NPO Renal. monitor closely urine output, BUN and creatinine Endocrine. Monitor serial Acu checks and SSI as needed in detail ID monitor for signs of infection Protonix for stress ulcer prophylaxis Paco Blackwell MD Jan 24, 2017 19:52
[2017-01-24] MEDS: ATORVASTATIN 10 MG TAB PO SCH (20:28)
[2017-01-24 22:29] LABS: APTT (PATIENT) 44.1 SEC (24.3-30.1)
--- NOTE | 2017-01-24 23:03 | RADRPT ---
EXAM DATE/TIME: 01/24/2017 22:29 [facility] COMPARISON: No previous studies available for comparison. INDICATIONS : Myelopathy. MEDICAL HISTORY : Diabetes mellitus type 2. Hypertension. SURGICAL HISTORY : None. ENCOUNTER: Initial ACUITY: 1 day PAIN SCORE: 9/10 LOCATION: Bilateral mid back region. TECHNIQUE: Multiplanar multisequence MRI of the thoracic spine was performed. FINDINGS: VERTEBRA: Normal vertebral body height. Homogeneous marrow signal. ALIGNMENT: Normal. CORD: Normal position and configuration. T1-T2: Normal. T2-T3: The thecal sac has a normal diameter. No evidence of disc bulge or protrusion. T3-T4: The thecal sac has a normal diameter. No evidence of disc bulge or protrusion. T4-T5: Mild diffuse disc bulge without significant central canal stenosis. No significant neural foraminal stenosis. T5-T6: The thecal sac has a normal diameter. No evidence of disc bulge or protrusion. T6-T7: Eccentric left paracentral disc bulge with slight effacement of the anterior thecal sac. No si gnificant neural foraminal stenosis. T7-T8: The thecal sac has a normal diameter. No evidence of disc bulge or protrusion. T8-T9: The thecal sac has a normal diameter. No evidence of disc bulge or protrusion. T9-T10: The thecal sac has a normal diameter. No evidence of disc bulge or protrusion. T10-T11: Minimal diffuse disc bulge without significant central canal or neural foraminal stenosis. T11-T12: Mild diffuse disc bulge with bilateral facet arthropathy. Slight effacement of the left late ral recess. Mild left neural foraminal stenosis. T12-L1: Posterior disc osteophyte complex with mild effacement of the anterior thecal sac. No signifi cant neural foraminal stenosis. CONCLUSION: 1. Mild degenerative spondylosis most prominently at T11-L1 with slight effacement of the anterior th ecal sac and left lateral recess. No significant neural foraminal stenosis. 2. No acute fracture. Juan Bhakta MD on January 24, 2017 at 22:55 Board Certified Radiologist. This report was verified electronically.
[2017-01-25] VITALS (9 sets, daily range): BP systolic 118–143; BP diastolic 59–88; PULSE 78–98; RESP 17–20; TEMP 97.4–98.9; O2SAT 92–99
[2017-01-25] MEDS: ACETAMINOPHEN/HYDROcodone 325 MG/7.5 MG TAB PO PRN ×3 (04:28→20:23)
[2017-01-25 04:30] LABS: APTT (PATIENT) 42.5 SEC (24.3-30.1)
[2017-01-25] MEDS: HEPARIN-D5W 25,000 U/250 ML 250 ML IV PRN (04:32)
[2017-01-25] MEDS: SODIUM CHLOR 0.45% 1000 ML INJ 1,000 ML IV SCH ×3 (06:09→21:50)
[2017-01-25] MEDS: INSULIN ASPART SUPPLEMENTAL SCALE SQ SCH ×4 (06:11→20:27)
[2017-01-25] MEDS: ATENOLOL 25 MG TAB PO SCH (08:47)
[2017-01-25] MEDS: SODIUM CHLORIDE 0.9% FLUSH 10 ML FLUSH IV FLUSH SCH ×2 (08:47→20:22)
[2017-01-25] MEDS: DOCUSATE SODIUM 50 MG/SENNA 8.6 MG TAB PO SCH ×2 (08:47→20:22)
[2017-01-25] MEDS ORDERED: MIDAZOLAM HCL 2 MG/2 ML VIAL ONE ×2 (10:31)
[2017-01-25] MEDS ORDERED: IOHEXOL 350 MG/ML 50 ML BTL (for RAD DIAG) IV PUSH ONE (11:02)
--- NOTE | 2017-01-25 11:11 | PD.RAD ---
Post Procedure Progress Note Pre Procedure Diagnosis: (1) DVT (deep venous thrombosis) Post Procedure Diagnosis: (1) DVT (deep venous thrombosis) Procedure Date: Jan 25, 2017 Supervising Radiologist: Yung Fowler Proceduralist/Assist: Griffin Polanco, RT(R), Yeni Avila RT(R) Anesthesia: Conscious Sedation Plan of Activity Patient to Unit: Nursing Unit Patient Condition: Good See PACS Report for procedural detail/treatment Vascular-Venous Procedure Procedure 1 Procedure Site: Abdominal Procedure(s): Retrievable IVC Filter Access Access Site(s): Right Jugular Vein Closure Site(s): Right manual pressure Yung Fowler MD Jan 25, 2017 11:11
--- NOTE | 2017-01-25 12:36 | RADRPT ---
EXAM DATE/TIME: 01/25/2017 10:29 [place] COMPARISON: No previous studies available for comparison. INDICATIONS : Patient with history of DVT in need of IVC filter placement. MEDICAL HISTORY : Gouty arthritis Chronic kidney disease secondary to multiple kidney stones . SURGICAL HISTORY : Rhinoplasty while in hospital 2008 kidney stents ENCOUNTER: Initial ACUITY: 4 - 6 days PAIN SCORE: 7/10 LOCATION: Left Shoulder FLUORO TIME: 1.4 minutes IMAGE SERIES: 1 ACCESS SITE: Right Internal jugular vein SEDATION TIME: 30 minutes CONTRAST: 1.) 20 cc Omnipaque (iohexol) 350 MEDICATION(S): 1.) 1 mg midazolam (Versed) IV 2.) 100 mcg fentanyl (Sublimaze) IV DEVICE(S): 1.) Inferior vena cava [place] filter PROCEDURE : 1. Ultrasound-guided venipuncture. 2. Inferior venacavogram. 3. Inferior vena cava filter placement. 4. Conscious sedation with continuous EKG and oximetry monitoring. The risks, benefits and alternatives to the procedure were explained and verbal and written consent w as obtained. The site was prepped in sterile fashion. Full sterile technique was used, including ca p, mask, sterile gloves and gown and a large sterile sheet. Hand hygiene and 2% chlorhexidine and/or betadine/alcohol prep was utilized per protocol for cutaneous antisepsis. Sterile gel and sterile p robe cover were utilized for ultrasound guidance. The skin and subcutaneous tissues were infiltrated with local anesthetic solution. With ultrasound and fluoroscopic guidance the targeted vein was punctured and a vascular sheath was p laced. Inferior venacavogram was performed to demonstrate level of renal veins. No caval thrombus was identified. The prescribed filter was deployed in the infrarenal inferior vena cava. Following deplo yment the filter was identified in good position. Conscious sedation was performed with the prescribed dosages and duration as above in the presence of an independent trained radiology nurse to assist in the monitoring of the patient. EKG and oximetry remained stable throughout the procedure. The patient tolerated the procedure well and there were n o complications. The patient was sent to post anesthesia recovery in stable condition. CONCLUSION: Uncomplicated inferior vena cava filter placement as above. Yung Fowler MD on January 25, 2017 at 12:34 Board Certified Radiologist. This report was verified electronically.
--- NOTE | 2017-01-25 12:59 | EKG ---
Date Performed: 01/24/2017 Time Performed: 12:55:34 PTAGE: 61 years EKG: SINUS TACHYCARDIA ABNORMAL RHYTHM ECG PREVIOUS TRACING : 01/23/2017 04.59 DOCTOR: Joel Diamond Interpretating Date/Time 01/25/2017 12:51:12
--- NOTE | 2017-01-25 15:22 | HHI.PR ---
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 Plan follow up CSF depending on results, consider ivig Diagnosis/Plan: Subjective Subjective Comments No acute events reported weakness in upper extremities and lower extremities without change Active Medications Current Medications Medications (Trade) Dose Ordered Sig/Rosalia Route Start Time Stop Time Status Last Admin (NS Flush) 2 ml UNSCH PRN IV FLUSH 01/23/17 00:30 (NS Flush) 2 ml BID IV FLUSH 01/23/17 09:00 (Tylenol) 650 mg Q4H PRN PO 01/23/17 00:30 (Zofran Inj) 4 mg Q6H PRN IVP 01/23/17 00:30 ([place] 5-325 Mg) 1 tab Q4H PRN PO 01/23/17 00:30 01/23/17 19:39 ([place] 7.5-325 Mg) 1 tab Q4H PRN PO 01/23/17 00:30 01/25/17 08:42 (Narcan Inj) 0.4 mg UNSCH PRN IV 01/23/17 00:30 (Edna-Colace) 1 tab BID PO 01/23/17 09:00 01/25/17 08:47 (Milk Of Magnesia Liq) 30 ml Q12H PRN PO 01/23/17 00:30 (Senokot) 17.2 mg Q12H PRN PO 01/23/17 00:30 (Dulcolax Supp) 10 mg DAILY PRN RECTAL 01/23/17 00:30 (D50w (Vial) Inj) 50 ml UNSCH PRN IV 01/23/17 07:45 (Glucagon Inj) 1 mg UNSCH PRN OTHER 01/23/17 07:45 (NovoLOG SUPPLEMENTAL SCALE) 1 ACHS SLIDING SCALE SQ 01/23/17 11:00 01/23/17 14:02 Sodium Chloride 1,000 ml @ 84 mls/hr [id number] IV 01/23/17 18:30 01/25/17 06:09 (Tenormin) 25 mg DAILY PO 01/24/17 13:00 01/25/17 08:47 (Lipitor) 10 mg HS PO 01/24/17 21:00 01/24/17 20:28 (Catapres) 0.1 mg Q6H PRN PO 01/24/17 18:00 Allergies Allergies Coded Allergies levofloxacin (Verified Allergy, Severe, 01/22/17) Exam I&O / VS 01/25/17 01/25/17 01/26/17 15:00 23:00 07:00 # Bowel Movements 1 Vital Signs Date Time Temp Pulse Resp B/P (MAP) Pulse Ox O2 Delivery O2 Flow Rate FiO2 01/25/17 12:00 98.9 93 20 118/59 (78) 97 01/25/17 11:55 80 18 143/88 (106) 94 01/25/17 11:25 79 20 125/82 (96) 93 01/25/17 11:10 97.7 78 20 138/79 (98) 92 01/25/17 08:00 97.4 86 18 125/69 (87) 99 01/25/17 04:00 97.8 96 20 126/69 (88) 98 01/25/17 00:00 98.2 97 20 127/65 (85) 97 01/24/17 20:47 126 01/24/17 19:35 98.9 116 20 144/72 (96) 97 01/24/17 16:05 98.6 116 18 172/75 (107) 93 Exam Comments alert, speech normal CN intact MOTOR 4/5 BUE, 3/5 bilateral iliopsoas, 4/5 bilateral quadricep and hamstring and tibialis anterior Arreflexic BUE and BLE Objective Micro and Labs Laboratory Tests Test 01/24/17 21:50 01/25/17 03:53 Activated Partial Thromboplast Time 44.1 42.5 Date/Time Source Procedure Growth Status 01/22/17 21:05 Blood Peripheral Aerobic Blood Culture - Preliminary NO GROWTH IN 3 DAYS Resulted 01/22/17 21:05 Blood Peripheral Anaerobic Blood Culture - Preliminary NO GROWTH IN 3 DAYS Resulted Chirag Crenshaw PhD MD Jan 25, 2017 15:22
--- NOTE | 2017-01-25 16:48 | HHI.NPPN ---
Subjective History of Present Illness 61-year-old with history of urinary stone Additional Remarks has neurological work up Review of Systems General Constitutional: Fatigue Objective Data Data 01/25/17 01/26/17 19:00 07:00 # Bowel Movements 2 Vital Signs Date Time Temp Pulse Resp B/P (MAP) Pulse Ox O2 Delivery O2 Flow Rate FiO2 01/25/17 16:00 98.3 94 20 133/74 (93) 97 01/25/17 12:00 98.9 93 20 118/59 (78) 97 01/25/17 11:55 80 18 143/88 (106) 94 01/25/17 11:25 79 20 125/82 (96) 93 01/25/17 11:10 97.7 78 20 138/79 (98) 92 01/25/17 08:00 97.4 86 18 125/69 (87) 99 01/25/17 04:00 97.8 96 20 126/69 (88) 98 01/25/17 00:00 98.2 97 20 127/65 (85) 97 01/24/17 20:47 126 01/24/17 19:35 98.9 116 20 144/72 (96) 97 -: 01/24/17 0234 01/24/17 0234 Physical Exam General Appearance: Well Developed Neck Neck Exam: Neck Supple Pulmonary Resp Exam: Clear Bilaterally, Breath Sounds Equal Cardiology CV Exam: Regular, Normal Sinus Rhythm Gastrointestinal/Abdomen GI Exam: Soft, Non-Tender, Bowel Sounds Present Extremeties Extremities Exam: No Edema Neurologic Neuro Exam: Alert, Moving All Extremities Assessment/Plan Problem List: (1) Acute renal failure ICD Codes: N17.9 - Acute kidney failure, unspecified Plan: May need allopurinol Continue to observe RIOS/SPEP neg Patient can be followed as outpatient he will get LP done fu BMP (2) CKD (chronic kidney disease) stage 3, GFR 30-59 ml/min ICD Codes: N18.3 - Chronic kidney disease, stage 3 (moderate) Plan: Ultrasound revealed chronic kidney disease there is no kidney stones (3) Diabetes ICD Codes: E11.9 - Type 2 diabetes mellitus without complications Plan: Continue to monitor (4) Distal end of ulna fracture, closed ICD Codes: S52.609A - Unspecified fracture of lower end of unspecified ulna, initial encounter for closed fracture Plan: Orthopedic is following Problem Qualifiers (1) Acute renal failure: Qualified Codes: N17.9 - Acute kidney failure, unspecified Laura Liao MD Jan 25, 2017 16:48
--- NOTE | 2017-01-25 17:28 | HHI.NSPN ---
Note Status Status: Progress Note Interval History Interval History Mr. Kerr is a 61-year-old man with history of osteoarthritis, diabetes mellitus , hypertension and hyperlipidemia,.gout and chronic renal failure who states he has about a 2 or 3 day history of weakness involving his upper and lower extremities, which came on fairly gradually, but has been progressive. He also has chronic back pain. The patient says he fell last week and severe pain was noted in right wrist, resulting in a fracture of the right arm. He did not suffer a head injury. Denies loss of consciousness. Denies seizure activity. Denies incontinence of stool or urine or tongue biting. He denies any double vision or speech changes. He reports chronic kidney disease, in 2004 had multiple kidney stones. She denies significant sensory loss. He denies incontinence of stool or urinary retention. MRI of the lumbar spine show evidence of multilevel spinal stenosis. Neurosurgical consultation was requested 01/25. He continues to report pain and weakness of his upper extremities and bilateral lower extremities. Workup in porogress Labs, Micro, & Vital Signs Results Date Time Temp Pulse Resp B/P (MAP) Pulse Ox O2 Delivery O2 Flow Rate FiO2 01/25/17 16:00 98.3 94 20 133/74 (93) 97 01/25/17 12:00 98.9 93 20 118/59 (78) 97 01/25/17 11:55 80 18 143/88 (106) 94 01/25/17 11:25 79 20 125/82 (96) 93 01/25/17 11:10 97.7 78 20 138/79 (98) 92 01/25/17 08:00 97.4 86 18 125/69 (87) 99 01/25/17 04:00 97.8 96 20 126/69 (88) 98 01/25/17 00:00 98.2 97 20 127/65 (85) 97 01/24/17 20:47 126 01/24/17 19:35 98.9 116 20 144/72 (96) 97 Constitutional Vital Signs Date Time Temp Pulse Resp B/P (MAP) Pulse Ox O2 Delivery O2 Flow Rate FiO2 01/25/17 16:00 98.3 94 20 133/74 (93) 97 01/25/17 12:00 98.9 93 20 118/59 (78) 97 01/25/17 11:55 80 18 143/88 (106) 94 01/25/17 11:25 79 20 125/82 (96) 93 01/25/17 11:10 97.7 78 20 138/79 (98) 92 01/25/17 08:00 97.4 86 18 125/69 (87) 99 01/25/17 04:00 97.8 96 20 126/69 (88) 98 01/25/17 00:00 98.2 97 20 127/65 (85) 97 01/24/17 20:47 126 01/24/17 19:35 98.9 116 20 144/72 (96) 97 Physical Exam Mr Kerr is alert,awake, oriented to time, place, person Cranial nerve examination demonstrates the pupils to be equal, round, and reactive to light. Extra-ocular movements are intact with normal convergence. Facial motor function appears normal and symmetrical. Face sensation, hearing, visual allen, and olfaction can not be assessed properly due to the patients condition. The patient has an intact corneal reflex and a gag reflex. Sternocleidomastoid and trapezius have normal and symmetrical strength. Other cranial nerves are intact. Neck is soft and supple. Cervical spine has a normal range of motion of the cervical spine without pain. There is no tenderness to palpation to the spinous processes or paraspinal muscles. Motor bulk normal. On motor exam he has give-way weakness in the upper extremities at 4+/5 proximal and distal. his right arm is in a cast. He is weak in the lower extremities, with difficulty raising the legs against gravity 3/5 strength of the iliopsoas symmetric, 4/5 quads, 4/5 hamstring, 4/5 tib anterior. Sensory exam diminished sensation distally in both lower extremities Deep tendom Reflexes are areflexic in both upper and lower extremities. There is no Babinski sign present. Cerebellar examination is limited due to the patient condition, but no obvious deficits are noted. Medications Current Medications Current Medications Sodium Chloride (NS Flush) 2 ml UNSCH PRN IVF FLUSH AFTER USING IV ACCESS; Start 01/22/17 at 21:00; Stop 01/23/17 at 00:51; Status DC Sodium Chloride 1,000 ml @ 999 mls/hr BOLUS ONCE IV Last administered on 21:40; Start 01/22/17 at 21:00; Stop 01/22/17 at 22:00; Status DC Morphine Sulfate (Morphine Inj) 4 mg ONCE ONCE IV PUSH Last administered on 21:40; Start 01/22/17 at 21:00; Stop 01/22/17 at 21:03; Status DC Vancomycin HCl 1000 mg/Sodium Chloride 250 ml @ 250 mls/hr ONCE ONCE IV Last administered on 01/22/17 23:26; Start 01/22/17 at 22:00; Stop 01/22/17 at 22:59; Status DC Piperacillin Sod/ Tazobactam Sod 100 ml @ 200 mls/hr ONCE ONCE IV Last administered on 01/22/17 23:06; Start 01/22/17 at 22:00; Stop 01/22/17 at 22:29; Status DC Sodium Chloride 1,000 ml @ 999 mls/hr BOLUS ONCE IV Last administered on 23:06; Start 01/22/17 at 22:00; Stop 01/22/17 at 23:00; Status DC Sodium Chloride 1,000 ml @ 75 mls/hr [id number] IV Last administered on 01/23/17 12:23; Start 01/23/17 at 00:30; Stop 01/23/17 at 20:08; Status DC Sodium Chloride (NS Flush) 2 ml UNSCH PRN IV FLUSH FLUSH AFTER USING IV ACCESS ; Start 01/23/17 at 00:30 Sodium Chloride (NS Flush) 2 ml BID IV FLUSH ; Start 01/23/17 at 09:00 Acetaminophen (Tylenol) 650 mg Q4H PRN PO TEMP > 100.4; Start 01/23/17 at 00:30 Ondansetron HCl (Zofran Inj) 4 mg Q6H PRN IVP NAUSEA OR VOMITING; Start at 00:30 Acetaminophen/ Hydrocodone Bitart ([place] 5-325 Mg) 1 tab Q4H PRN PO PAIN SCALE 3 TO 5 Last administered on 01/23/17 19:39; Start 01/23/17 at 00:30 Acetaminophen/ Hydrocodone Bitart ([place] 7.5-325 Mg) 1 tab Q4H PRN PO PAIN SCALE 6 TO 10 Last administered on 01/25/17 08:42; Start 01/23/17 at 00:30 Morphine Sulfate (Morphine Inj) 3 mg Q3H PRN IV BREAKTHROUGH PAIN Last administered on 01/24/17 11:46; Start 01/23/17 at 00:30; Stop 01/24/17 at 13:02; Status DC Naloxone HCl (Narcan Inj) 0.4 mg UNSCH PRN IV SEE LABEL COMMENTS; Start at 00:30 Senna/Docusate Sodium (Edna-Colace) 1 tab BID PO Last administered on 01/25/17 08:47; Start 01/23/17 at 09:00 Magnesium Hydroxide (Milk Of Magnesia Liq) 30 ml Q12H PRN PO MILD - MODERATE CONSTIPATION; Start 01/23/17 at 00:30 Sennosides (Senokot) 17.2 mg Q12H PRN PO MODERATE - SEVERE CONSTIPATION; Start 01/23/17 at 00:30 Bisacodyl (Dulcolax Supp) 10 mg DAILY PRN RECTAL SEVERE CONSITIPATION; Start at 00:30 Piperacillin Sod/ Tazobactam Sod 100 ml @ 200 mls/hr Q6H IV Last administered on 01/23/17 05:39; Start 01/23/17 at 06:00; Stop 01/23/17 at 11:48; Status DC Dextrose (D50w (Vial) Inj) 50 ml UNSCH PRN IV HYPOGLYCEMIA-SEE COMMENTS; Start 01/23/17 at 07:45 Glucagon (Glucagon Inj) 1 mg UNSCH PRN OTHER HYPOGLYCEMIA-SEE COMMENTS; Start 01/23/17 at 07:45 Insulin Aspart (NovoLOG SUPPLEMENTAL SCALE) 1 ACHS SLIDING SCALE SQ Last administered on 01/23/17 14:02; Start 01/23/17 at 11:00 Heparin Sodium (Porcine) (Heparin Inj) 5,000 units Q8HR SQ Last administered on 01/23/17 14:00; Start 01/23/17 at 14:00; Stop 01/23/17 at 17:07; Status DC Insulin Aspart (NovoLOG INJ) 10 units ONCE ONCE SQ Last administered on 10:11; Start 01/23/17 at 09:45; Stop 01/23/17 at 10:02; Status DC Piperacillin Sod/ Tazobactam Sod 50 ml @ 100 mls/hr Q6HR IV Last administered on 01/23/17 19:23; Start 01/23/17 at 12:00; Stop 01/23/17 at 21:15; Status DC Heparin Sodium (Porcine) (Heparin Inj) 7,000 units ONCE ONCE IV Last administered on 01/23/17 20:39; Start 01/23/17 at 17:15; Stop 01/23/17 at 18:15; Status DC Heparin Sodium/ Dextrose 250 ml @ 16.29 mls/ hr TITRATE PRN IV Coagulation management Last administered on 01/25/17 04:32; Start 01/23/17 at 17:15; Stop 01/25/17 at 14:13; Status DC Sodium Chloride 1,000 ml @ 84 mls/hr [id number] IV Last administered on 01/25/17 06:09; Start 01/23/17 at 18:30 Atenolol (Tenormin) 25 mg DAILY PO Last administered on 01/25/17 08:47; Start 01/24/17 at 13:00 Atorvastatin Calcium (Lipitor) 10 mg HS PO Last administered on 01/24/17 20:28 ; Start 01/24/17 at 21:00 Clonidine (Catapres) 0.1 mg Q6H PRN PO SBP> OR = 180, DBP> OR = 100; Start 01/24 at 18:00 Fentanyl Citrate (fentaNYL INJ) 100 mcg STK-MED ONCE .ROUTE Last administered on 01/25/17 10:31; Start 01/25/17 at 10:31; Stop 01/25/17 at 10:32; Status DC Fentanyl Citrate (fentaNYL INJ) 100 mcg STK-MED ONCE .ROUTE ; Start 01/25/17 at 10:31; Stop 01/25/17 at 10:32; Status DC Midazolam HCl (Versed Inj) 2 mg STK-MED ONCE .ROUTE ; Start 01/25/17 at 10:31; Stop 01/25/17 at 10:32; Status DC Midazolam HCl (Versed Inj) 2 mg STK-MED ONCE .ROUTE ; Start 01/25/17 at 10:31; Stop 01/25/17 at 10:32; Status DC Iohexol (Omnipaque 350 Inj) 20 ml STK-MED ONCE IV PUSH ; Start 01/25/17 at 11:02 ; Stop 01/25/17 at 11:05; Status DC Medical Decision Making [facility] Remarks Last 48 hours Impressions Renal Ultrasound 01/23/17 0000 Signed Impressions: Service Date/Time: Monday, January 23, 2017 08:53 - CONCLUSION: 1. Evidence of chronic parenchymal disease of both kidneys. No obstructive uropathy or other acute abnormality demonstrated. 2. Trace ascites, nonspecific. Angelo Garrido MD Lumbar Spine MRI 01/23/17 0000 Signed Impressions: Service Date/Time: Monday, January 23, 2017 17:01 - CONCLUSION: 1. At L4-5 is a broad-based disc protrusion with severe central canal and lateral recess stenosis and flattening of the exiting right L4 nerve root. 2. L5-S1 there is a disc protrusion and moderate stenosis with flattening of the exiting L5 nerve roots bilaterally. 3. At L3-4 there is a moderate to severe central stenosis and lateral recess stenosis with mild foraminal stenosis. 4. No acute fracture or spondylolisthesis. Trace Holloway MD Lower Extremity Ultrasound 01/23/17 0000 Signed Impressions: Service Date/Time: Monday, January 23, 2017 09:53 - CONCLUSION: Bilateral focal lower extremity DVT involving the posterior tibial veins. Angelo Garrido MD Cervical Spine MRI 01/23/17 0000 Signed Impressions: Service Date/Time: Monday, January 23, 2017 17:01 - CONCLUSION: 1. Multilevel cervical spine degenerative changes as above. 2. Mild degrees of spinal stenosis at C3/C4-C6/C7. No cord compression or cord signal abnormality. 3. Age indeterminate left paracentral/foraminal disc protrusion at C6/C7. 4. Multilevel foraminal stenosis, most severe on the left at C6/C7. Please see individual levels above. 5. No fracture or subluxation of the cervical spine. Angelo Garrido MD Brain MRI 01/23/17 0000 Signed Impressions: Service Date/Time: Monday, January 23, 2017 17:01 - CONCLUSION: 1. No acute stroke or other acute intracranial abnormality demonstrated. 2. Moderate severity chronic white matter changes, nonspecific but most likely related to chronic small vessel disease. 3. Few scattered tiny lacunar infarcts of the brainstem. 4. Given the findings are not entirely specific, clinical evaluation for possible multiple sclerosis recommended. Angelo Garrido MD Head CT [id number] Signed Impressions: Service Date/Time: Sunday, January 22, 2017 22:39 - CONCLUSION: Negative noncontrast CT Benjamin Person MD Chest X-Ray [id number] Signed Impressions: Service Date/Time: Sunday, January 22, 2017 22:18 - CONCLUSION: No acute disease. Benjamin Person MD Wrist X-Ray [id number] Signed Impressions: Service Date/Time: Sunday, January 22, 2017 21:21 - CONCLUSION: 1. Nondisplaced oblique fracture through the distal ulna. 2. Chronic appearing deformity of the distal ulna as well. 3. Extensive degenerative change and osteopenia. Benjamin Person MD Knee X-Ray [id number] Signed Impressions: Service Date/Time: Sunday, January 22, 2017 21:17 - CONCLUSION: 1. Evidence of moderate to large joint effusion. 2. No acute fracture or malalignment. 3. Mild 3 compartment osteoarthritic change. Benjamin Person MD Knee X-Ray [id number] Signed Impressions: Service Date/Time: Sunday, January 22, 2017 21:14 - CONCLUSION: 1. No acute fracture or malalignment. 2. Soft tissue swelling and osteoarthritic change. 3. Joint effusion Benjamin Person MD Hip and Pelvis X-Ray [id number] Signed Impressions: Service Date/Time: Sunday, January 22, 2017 21:10 - CONCLUSION: 1. Mild to moderate degenerative change of both hips with no acute fracture or malalignment. There is flattening and remodeling of the right humeral head. Benjamin Person MD Attending Statement Continue neuro checks. I review his MRI of the thoracic spine. There is no spinal cord compression although he has lumbar spinal stenosis, his lumbar MRI does not explain his neurological deficits. I discussed again the case extensively with Dr. Chirag Crenshaw. [place] barre is a consideration. He will undergo a lumbar puncture for analysis of CSF. Differential would include thoracic myelopathy, multiple sclerosis Guillain-[place] syndromem, Myositis or myopathy,Transverse myelitis Continue neuro checks in a serial fashion. Lumbar spinal surgery is not indicated at this time He has a DVT and he is on a heparin drip. He is going for placement of [place] filter and to discontinue heparin Fracture of lower end of ulna, evaluated by Dr. Sifuentes. nonoperative treatment with a cast EMG and nerve conduction studies for evaluation for possible neuropathy or Guillain-[place]. Pulmonary.. Continue aggressive pulmonary toilette, nasotracheal suction, and breathing treatments with nebulizers. Nutrition. Oral diet Renal. monitor closely urine output, BUN and creatinine Endocrine. Monitor serial Acu checks and SSI as needed in detail ID monitor for signs of infection Continue Protonix for stress ulcer prophylaxis Paco Blackwell MD Jan 25, 2017 17:28
--- NOTE | 2017-01-25 20:20 | HHI.PR ---
Subjective Remarks Follow up for fall, lower extremity weakness, acute renal failure. Mr. Kerr underwent IVC filter placement today. He continues to have overall weakness but particularly lower ext weakness. No fever, chills. Objective Vitals Vital Signs Date Time Temp Pulse Resp B/P (MAP) Pulse Ox O2 Delivery O2 Flow Rate FiO2 01/25/17 16:00 98.3 94 20 133/74 (93) 97 01/25/17 12:00 98.9 93 20 118/59 (78) 97 01/25/17 11:55 80 18 143/88 (106) 94 01/25/17 11:25 79 20 125/82 (96) 93 01/25/17 11:10 97.7 78 20 138/79 (98) 92 01/25/17 08:00 97.4 86 18 125/69 (87) 99 01/25/17 04:00 97.8 96 20 126/69 (88) 98 01/25/17 00:00 98.2 97 20 127/65 (85) 97 01/24/17 20:47 126 I/O 01/24/17 01/24/17 01/24/17 01/25/17 01/25/17 01/25/17 07:00 15:00 23:00 07:00 15:00 23:00 Intake Total 452 ml Output Total 375 ml 6 ml 600 ml Balance -375 ml -6 ml 452 ml -600 ml Intake Oral 200 ml IV Total 252 ml Output Urine Total 375 ml 6 ml 600 ml # Voids 1 3 # Bowel Movements 2 Result Diagram: 01/24/17 0234 01/24/17 0234 Imaging Last Impressions IVC Filter Placement X-Ray 01/25/17 0000 Signed Impressions: Service Date/Time: January 10:29 - CONCLUSION: Uncomplicated inferior vena cava filter placement as above. Yung Fowler MD Thoracic Spine MRI 01/24/17 0000 Signed Impressions: Service Date/Time: Tuesday, January 24, 2017 22:29 - CONCLUSION: 1. Mild degenerative spondylosis most prominently at T11-L1 with slight effacement of the anterior thecal sac and left lateral recess. No significant neural foraminal stenosis. 2. No acute fracture. Juan Bhakta MD Renal Ultrasound 9/5/17 0000 Signed Impressions: Service Date/Time: Monday, January 23, 2017 08:53 - CONCLUSION: 1. Evidence of chronic parenchymal disease of both kidneys. No obstructive uropathy or other acute abnormality demonstrated. 2. Trace ascites, nonspecific. Angelo Garrido MD Lumbar Spine MRI 01/23/17 Signed Impressions: Service Date/Time: Monday, January 23, 2017 17:01 - CONCLUSION: 1. At L4-5 is a broad-based disc protrusion with severe central canal and lateral recess stenosis and flattening of the exiting right L4 nerve root. 2. L5-S1 there is a disc protrusion and moderate stenosis with flattening of the exiting L5 nerve roots bilaterally. 3. At L3-4 there is a moderate to severe central stenosis and lateral recess stenosis with mild foraminal stenosis. 4. No acute fracture or spondylolisthesis. Trace Holloway MD Lower Extremity Ultrasound 01/23/17 Signed Impressions: Service Date/Time: Monday, January 23, 2017 09:53 - CONCLUSION: Bilateral focal lower extremity DVT involving the posterior tibial veins. Angelo Garrido MD Cervical Spine MRI 01/23/17 Signed Impressions: Service Date/Time: Monday, January 23, 2017 17:01 - CONCLUSION: 1. Multilevel cervical spine degenerative changes as above. 2. Mild degrees of spinal stenosis at C3/C4-C6/C7. No cord compression or cord signal abnormality. 3. Age indeterminate left paracentral/foraminal disc protrusion at C6/C7. 4. Multilevel foraminal stenosis, most severe on the left at C6/C7. Please see individual levels above. 5. No fracture or subluxation of the cervical spine. Angelo Garrido MD Brain MRI 01/23/17 Signed Impressions: Service Date/Time: Monday, January 23, 2017 17:01 - CONCLUSION: 1. No acute stroke or other acute intracranial abnormality demonstrated. 2. Moderate severity chronic white matter changes, nonspecific but most likely related to chronic small vessel disease. 3. Few scattered tiny lacunar infarcts of the brainstem. 4. Given the findings are not entirely specific, clinical evaluation for possible multiple sclerosis recommended. Angelo Garrido MD Head CT 01/22/172202 Signed Impressions: Service Date/Time: Sunday, January 22, 2017 22:39 - CONCLUSION: Negative noncontrast CT Benjamin Person MD Chest X-Ray 01/22/172202 Signed Impressions: Service Date/Time: Sunday, January 22, 2017 22:18 - CONCLUSION: No acute disease. Benjamin Person MD Wrist X-Ray 01/22/172053 Signed Impressions: Service Date/Time: Sunday, January 22, 2017 21:21 - CONCLUSION: 1. Nondisplaced oblique fracture through the distal ulna. 2. Chronic appearing deformity of the distal ulna as well. 3. Extensive degenerative change and osteopenia. Benjamin Person MD Knee X-Ray 01/22/172053 Signed Impressions: Service Date/Time: Sunday, January 22, 2017 21:17 - CONCLUSION: 1. Evidence of moderate to large joint effusion. 2. No acute fracture or malalignment. 3. Mild 3 compartment osteoarthritic change. Benjamin Person MD Hip and Pelvis X-Ray 01/22/172053 Signed Impressions: Service Date/Time: Sunday, January 22, 2017 21:10 - CONCLUSION: 1. Mild to moderate degenerative change of both hips with no acute fracture or malalignment. There is flattening and remodeling of the right humeral head. Benjamin Person MD Objective Remarks GENERAL: Alert, NAD. SKIN: Warm and dry. HEAD: Normocephalic. EYES: No scleral icterus. No injection or drainage. NECK: Supple, trachea midline. No JVD or lymphadenopathy. CARDIOVASCULAR: Regular rate and rhythm without murmurs, gallops, or rubs. RESPIRATORY: Breath sounds equal bilaterally. No accessory muscle use. GASTROINTESTINAL: Abdomen soft, non-tender, nondistended. MUSCULOSKELETAL: No cyanosis, or edema. 3/5 lower ext strength, 4/5 upper ext. BACK: Nontender without obvious deformity. No CVA tenderness. Procedures IVC filter placement 01/25/2017 A/P Problem List: (1) Distal end of ulna fracture, closed ICD Code: S52.609A - Unspecified fracture of lower end of unspecified ulna, initial encounter for closed fracture (2) Diabetes mellitus ICD Code: E11.9 - Type 2 diabetes mellitus without complications Assessment and Plan 61-year-old male with history of diabetes mellitus, gouty arthritis, COPD secondary to recurrent nephrolithiasis per the patient, presents with multiple complaints including bilateral lower extremity weakness, falls, right arm pain. Right Distal Ulna Oblique Fracture: RUE xray images reviewed. - consulted ortho, nonsurgical, recommends continuing splint, plan to transition to cast as outpatient - Continue norco prn and IV morphine prn breakthrough pain Concern for septic arthritis: patient met sepsis criteria with leukocytosis WBC 19.3K, tachycardia HR 132, however afebrile, lactic acid 1.6. Patient has also been on recent steroids as outpatient. WBC 15.8 on 01/24/2017 - elevations in CRP - 31 and ESR - 22 - initially given antibiotics however evaluation by ortho, not concerned for septic joint, will d/c antibiotics and cancel ID consult Acute Renal Failure on CKD stage 3-4: no previous labs to compare. - No prior labs available for comparison - BUN 45, creatinine 4.09, estimated gFR - 15 - continue on IVF, renal function slowly improving - avoid nephrotoxins - Renal U/S showed evidence of chronic parenchymal disease both kidneys; no obstructive uropathy - consulted nephrology, appreciate assistance Severe Lumbar Spine Stenosis with Significant Lower Extremity Weakness and Recurrent Falls: progressive over the past few months, failed outpatient physical therapy and acupuncture - C-spine MRI showed Multilevel cervical spine degenerative changes; Mild degrees of spinal stenosis at C3/C4-C6/C7; No cord compression or cord signal abnormality; Age indeterminate left paracentral/foraminal disc protrusion at C6/ C7; Multilevel foraminal stenosis, most severe on the left at C6/C7; No fracture or subluxation of the cervical spine. - L-spine MRI showed L4-5 broad-based disc protrusion with severe central canal and lateral recess stenosis and flattening of the exiting right L4 nerve root; L5-S1 there is a disc protrusion and moderate stenosis with flattening of the exiting L5 nerve roots bilaterally; At L3-4 there is a moderate to severe central stenosis and lateral recess stenosis with mild foraminal stenosis; No acute fracture or spondylolisthesis. - Brain MRI showed No acute stroke or other acute intracranial abnormality demonstrated; Moderate severity chronic white matter changes, nonspecific but most likely related to chronic small vessel disease; Few scattered tiny lacunar infarcts of the brainstem; Given the findings are not entirely specific, clinical evaluation for possible multiple sclerosis recommended. - Vit B12, folate, TSH, ammonia all wnl, RPR negative - Consult PT, recommending rehab, patient unable to ambulate - Neurology and Neurosurgery following. Discussed with Neurosurgery today 2016. Neurosurgery is going to wait for a work up being done by neurology to rule out Guillain [place] syndrome or some other demyelinating disease. Bilateral DVT: patient complains of BLE edema and both legs feel "full" and "heavy" - Doppler U/S positive for bilateral DVT, started on Heparin drip - Patient underwent IVC filter placement on 01/25/2017 Type 2 Diabetes Mellitus: patient unsure of his home meds or dosing, RN to verify with his pharmacy - Continue Accu-Cheks before meals and at bedtime with low-dose NovoLog sliding scale coverage - Hypoglycemia protocol - HgbA1c 8.5 - Consult school vocational educator and horticulture teacher DVT prophylaxis: on heparin drip Discussed with neurosurgery. Kathryn Chairez DO Jan 25, 2017 20:20
[2017-01-25] MEDS: ATORVASTATIN 10 MG TAB PO SCH (20:23)
[2017-01-26] VITALS (8 sets, daily range): BP systolic 105–159; BP diastolic 58–91; PULSE 88–101; RESP 14–21; TEMP 97.6–100.2; O2SAT 94–100
[2017-01-26] MEDS: ACETAMINOPHEN/HYDROcodone 325 MG/7.5 MG TAB PO PRN ×5 (01:14→22:39)
[2017-01-26] MEDS: INSULIN ASPART SUPPLEMENTAL SCALE SQ SCH ×2 (05:15→21:00)
--- NOTE | 2017-01-26 07:48 | PD.ORT.PN ---
Subjective Subjective Remarks s/p right distal ulna fx slightly confused. slight pain reported Objective Vitals Vital Signs Date Time Temp Pulse Resp B/P (MAP) Pulse Ox O2 Delivery O2 Flow Rate FiO2 01/26/17 04:30 99.9 91 18 112/66 (81) 94 01/26/17 00:30 97.6 92 17 130/91 (104) 94 01/25/17 20:30 97.9 98 17 128/70 (89) 94 01/25/17 16:00 98.3 94 20 133/74 (93) 97 01/25/17 12:00 98.9 93 20 118/59 (78) 97 01/25/17 11:55 80 18 143/88 (106) 94 01/25/17 11:25 79 20 125/82 (96) 93 01/25/17 11:10 97.7 78 20 138/79 (98) 92 01/25/17 08:00 97.4 86 18 125/69 (87) 99 I/O 01/25/17 01/25/17 01/25/17 01/26/17 01/26/17 01/26/17 06:59 14:59 22:59 06:59 14:59 22:59 Intake Total 477 ml Output Total 600 ml 700 ml Balance -600 ml -223 ml Intake Oral 477 ml Output Urine Total 600 ml 700 ml # Voids 3 # Bowel Movements 2 1 Result Diagram: 01/24/1723301/24/17233 Objective Remarks RUE: +short arm splint. splint is battered and appears to have been moved or removed at one point. nvi. Assessment & Plan Assessment and Plan 1) Right Distal Ulna Fx - nonop -NWB -orthotech to resplint -nonop treatmen -ortho cleared for DC Phil Quintanlila Jan 26, 2017 07:48
[2017-01-26] MEDS: SODIUM CHLORIDE 0.9% FLUSH 10 ML FLUSH IV FLUSH SCH ×2 (09:00→21:00)
[2017-01-26] MEDS: SODIUM CHLOR 0.45% 1000 ML INJ 1,000 ML IV SCH (09:59)
[2017-01-26] MEDS: DOCUSATE SODIUM 50 MG/SENNA 8.6 MG TAB PO SCH ×2 (10:00→21:00)
[2017-01-26] MEDS: ATENOLOL 25 MG TAB PO SCH (10:01)
[2017-01-26 11:15] LABS: HEMATOCRIT 32.8 % (39.0-51.0); MEAN CELL VOLUME 83.2 FL (80.0-100.0); MEAN CORPUSCULAR HEMOGLOBIN 26.7 PG (27.0-34.0); MEAN CORPUSCULAR HGB CONC 32.1 % (32.0-36.0); PLATELET COUNT 454 TH/MM3 (150-450); RED BLOOD COUNT 3.94 MIL/MM3 (4.50-5.90); RED CELL DISTRIBUTION WIDTH 17.6 % (11.6-17.2); REVIEW FLAG FINAL; WHITE BLOOD COUNT 13.5 TH/MM3 (4.0-11.0)
[2017-01-26 11:31] LABS: APTT (PATIENT) 34.8 SEC (24.3-30.1)
[2017-01-26 11:42] LABS: BICARBONATE 23.1 MEQ/L (21.0-32.0); POTASSIUM 3.9 MEQ/L (3.5-5.1)
[2017-01-26] MEDS ORDERED: fentaNYL CITRATE 250 MCG/5 ML AMP ONE (12:07)
[2017-01-26] MEDS ORDERED: MIDAZOLAM HCL 2 MG/2 ML VIAL ONE (12:07)
[2017-01-26] MEDS ORDERED: IOHEXOL 300 MG/ML 50 ML BTL (for RAD DIAG) IT ONE (12:57)
--- NOTE | 2017-01-26 13:15 | HHI.NPPN ---
Subjective History of Present Illness 61-year-old with history of urinary stone Additional Remarks has neurological work up Review of Systems General Constitutional: Fatigue Objective Data Data Vital Signs Date Time Temp Pulse Resp B/P (MAP) Pulse Ox O2 Delivery O2 Flow Rate FiO2 01/26/17 08:00 99.1 93 14 105/58 (74) 95 01/26/17 04:30 99.9 91 18 112/66 (81) 94 01/26/17 00:30 97.6 92 17 130/91 (104) 94 01/25/17 20:30 97.9 98 17 128/70 (89) 94 01/25/17 16:00 98.3 94 20 133/74 (93) 97 -: 01/26/17 1051 01/26/17 1051 Microbiology 01/26/17 Fungal Smear, Received Pending 01/26/17 Fungal Culture, Received Pending 01/26/17 Acid Fast Stain, Received Pending 01/26/17 Mycobacterial Culture, Received Pending 01/26/17 Gram Stain, Received Pending 01/26/17 CSF Culture, Received Pending Physical Exam General Appearance: Well Developed Neck Neck Exam: Neck Supple Pulmonary Resp Exam: Clear Bilaterally, Breath Sounds Equal Cardiology CV Exam: Regular, Normal Sinus Rhythm Gastrointestinal/Abdomen GI Exam: Soft, Non-Tender, Bowel Sounds Present Extremeties Extremities Exam: No Edema Neurologic Neuro Exam: Alert, Moving All Extremities Assessment/Plan Problem List: (1) Acute renal failure ICD Codes: N17.9 - Acute kidney failure, unspecified Plan: Continue to observe RIOS/SPEP neg Patient can be followed as outpatient he has LP done fu BMP cr 2.7 (2) CKD (chronic kidney disease) stage 3, GFR 30-59 ml/min ICD Codes: N18.3 - Chronic kidney disease, stage 3 (moderate) Plan: Ultrasound revealed chronic kidney disease there is no kidney stones (3) Diabetes ICD Codes: E11.9 - Type 2 diabetes mellitus without complications Plan: Continue to monitor (4) Distal end of ulna fracture, closed ICD Codes: S52.609A - Unspecified fracture of lower end of unspecified ulna, initial encounter for closed fracture Plan: Orthopedic is following Problem Qualifiers (1) Acute renal failure: Qualified Codes: N17.9 - Acute kidney failure, unspecified Laura Liao MD Jan 26, 2017 13:15
--- NOTE | 2017-01-26 14:50 | HHI.PR ---
Subjective Remarks Follow up for fall, lower extremity weakness, acute renal failure. Patient is somewhat drowsy but wakes up on verbal commands. Denies any fever, chills. Objective Vitals Vital Signs Date Time Temp Pulse Resp B/P (MAP) Pulse Ox O2 Delivery O2 Flow Rate FiO2 01/26/17 13:30 88 18 159/87 (111) 96 01/26/17 13:15 88 20 138/76 (96) 96 01/26/17 13:00 97.7 88 20 132/83 (99) 96 01/26/17 08:00 99.1 93 14 105/58 (74) 95 01/26/17 04:30 99.9 91 18 112/66 (81) 94 01/26/17 00:30 97.6 92 17 130/91 (104) 94 01/25/17 20:30 97.9 98 17 128/70 (89) 94 01/25/17 16:00 98.3 94 20 133/74 (93) 97 I/O 01/25/17 01/25/17 01/25/17 01/26/17 01/26/17 01/26/17 07:00 15:00 23:00 07:00 15:00 23:00 Intake Total 477 ml Output Total 600 ml 700 ml Balance -600 ml -223 ml Intake Oral 477 ml Output Urine Total 600 ml 700 ml # Voids 3 # Bowel Movements 2 1 Result Diagram: 01/26/17 1051 01/26/17 1051 Imaging Last Impressions Lumbar Puncture Fluoroscopy 01/26/17 0000 Signed Impressions: Service Date/Time: Thursday, January 26, 2017 11:57 - CONCLUSION: Uncomplicated fluoroscopically guided lumbar puncture. Angelo Castelan MD IVC Filter Placement X-Ray 01/25/17 0000 Signed Impressions: Service Date/Time: January 10:29 - CONCLUSION: Uncomplicated inferior vena cava filter placement as above. Yung Fowler MD Thoracic Spine MRI 01/24/17 0000 Signed Impressions: Service Date/Time: Tuesday, January 24, 2017 22:29 - CONCLUSION: 1. Mild degenerative spondylosis most prominently at T11-L1 with slight effacement of the anterior thecal sac and left lateral recess. No significant neural foraminal stenosis. 2. No acute fracture. Juan Bhakta MD Renal Ultrasound 01/23/17 0000 Signed Impressions: Service Date/Time: Monday, January 23, 2017 08:53 - CONCLUSION: 1. Evidence of chronic parenchymal disease of both kidneys. No obstructive uropathy or other acute abnormality demonstrated. 2. Trace ascites, nonspecific. Angelo Garrido MD Lumbar Spine MRI 01/23/17 0000 Signed Impressions: Service Date/Time: Monday, January 23, 2017 17:01 - CONCLUSION: 1. At L4-5 is a broad-based disc protrusion with severe central canal and lateral recess stenosis and flattening of the exiting right L4 nerve root. 2. L5-S1 there is a disc protrusion and moderate stenosis with flattening of the exiting L5 nerve roots bilaterally. 3. At L3-4 there is a moderate to severe central stenosis and lateral recess stenosis with mild foraminal stenosis. 4. No acute fracture or spondylolisthesis. Trace Holloway MD Lower Extremity Ultrasound 01/23/17 Signed Impressions: Service Date/Time: Monday, January 23, 2017 09:53 - CONCLUSION: Bilateral focal lower extremity DVT involving the posterior tibial veins. Angelo Garrido MD Cervical Spine MRI 01/23/17 Signed Impressions: Service Date/Time: Monday, January 23, 2017 17:01 - CONCLUSION: 1. Multilevel cervical spine degenerative changes as above. 2. Mild degrees of spinal stenosis at C3/C4-C6/C7. No cord compression or cord signal abnormality. 3. Age indeterminate left paracentral/foraminal disc protrusion at C6/C7. 4. Multilevel foraminal stenosis, most severe on the left at C6/C7. Please see individual levels above. 5. No fracture or subluxation of the cervical spine. Angelo Garrido MD Brain MRI 01/23/17 Signed Impressions: Service Date/Time: Monday, January 23, 2017 17:01 - CONCLUSION: 1. No acute stroke or other acute intracranial abnormality demonstrated. 2. Moderate severity chronic white matter changes, nonspecific but most likely related to chronic small vessel disease. 3. Few scattered tiny lacunar infarcts of the brainstem. 4. Given the findings are not entirely specific, clinical evaluation for possible multiple sclerosis recommended. Angelo Garrido MD Head CT 9/4/17 2203 Signed Impressions: Service Date/Time: Sunday, January 22, 2017 22:39 - CONCLUSION: Negative noncontrast CT Benjamin Person MD Chest X-Ray 01/22/172202 Signed Impressions: Service Date/Time: Sunday, January 22, 2017 22:18 - CONCLUSION: No acute disease. Benjamin Person MD Wrist X-Ray 01/22/172053 Signed Impressions: Service Date/Time: Sunday, January 22, 2017 21:21 - CONCLUSION: 1. Nondisplaced oblique fracture through the distal ulna. 2. Chronic appearing deformity of the distal ulna as well. 3. Extensive degenerative change and osteopenia. Benjamin Person MD Knee X-Ray 01/22/172053 Signed Impressions: Service Date/Time: Sunday, January 22, 2017 21:17 - CONCLUSION: 1. Evidence of moderate to large joint effusion. 2. No acute fracture or malalignment. 3. Mild 3 compartment osteoarthritic change. Benjamin Person MD Hip and Pelvis X-Ray 01/22/172053 Signed Impressions: Service Date/Time: Sunday, January 22, 2017 21:10 - CONCLUSION: 1. Mild to moderate degenerative change of both hips with no acute fracture or malalignment. There is flattening and remodeling of the right humeral head. Benjamin Person MD Objective Remarks GENERAL: Alert, NAD. SKIN: Warm and dry. HEAD: Normocephalic. EYES: No scleral icterus. No injection or drainage. NECK: Supple, trachea midline. No JVD or lymphadenopathy. CARDIOVASCULAR: Regular rate and rhythm without murmurs, gallops, or rubs. RESPIRATORY: Breath sounds equal bilaterally. No accessory muscle use. GASTROINTESTINAL: Abdomen soft, non-tender, nondistended. MUSCULOSKELETAL: No cyanosis, or edema. 3/5 lower ext strength, 4/5 upper ext. BACK: Nontender without obvious deformity. No CVA tenderness. Procedures IVC filter placement 01/25/2017 LP 01/26/2017 A/P Problem List: (1) Distal end of ulna fracture, closed ICD Code: S52.609A - Unspecified fracture of lower end of unspecified ulna, initial encounter for closed fracture (2) Diabetes mellitus ICD Code: E11.9 - Type 2 diabetes mellitus without complications Assessment and Plan 61-year-old male with history of diabetes mellitus, gouty arthritis, COPD secondary to recurrent nephrolithiasis per the patient, presents with multiple complaints including bilateral lower extremity weakness, falls, right arm pain. Right Distal Ulna Oblique Fracture: RUE xray images reviewed. - consulted ortho, nonsurgical, recommends continuing splint, plan to transition to cast as outpatient - Continue norco prn and IV Dilaudid prn breakthrough pain Concern for septic arthritis: patient met sepsis criteria with leukocytosis WBC 19.3K, tachycardia HR 132, however afebrile, lactic acid 1.6. Patient has also been on recent steroids as outpatient. WBC 15.8 on 01/24/2017 - elevations in CRP - 31 and ESR - 22 - initially given antibiotics however evaluation by ortho, not concerned for septic joint, will d/c antibiotics and cancel ID consult Acute Renal Failure on CKD stage 3-4: no previous labs to compare. - No prior labs available for comparison - continue on IVF, renal function slowly improving. Creatinine 3.7 --> 2.78. - avoid nephrotoxins - Renal U/S showed evidence of chronic parenchymal disease both kidneys; no obstructive uropathy - consulted nephrology, appreciate assistance Severe Lumbar Spine Stenosis with Significant Lower Extremity Weakness and Recurrent Falls: progressive over the past few months, failed outpatient physical therapy and acupuncture - C-spine MRI showed Multilevel cervical spine degenerative changes; Mild degrees of spinal stenosis at C3/C4-C6/C7; No cord compression or cord signal abnormality; Age indeterminate left paracentral/foraminal disc protrusion at C6/ C7; Multilevel foraminal stenosis, most severe on the left at C6/C7; No fracture or subluxation of the cervical spine. - L-spine MRI showed L4-5 broad-based disc protrusion with severe central canal and lateral recess stenosis and flattening of the exiting right L4 nerve root; L5-S1 there is a disc protrusion and moderate stenosis with flattening of the exiting L5 nerve roots bilaterally; At L3-4 there is a moderate to severe central stenosis and lateral recess stenosis with mild foraminal stenosis; No acute fracture or spondylolisthesis. - Brain MRI showed No acute stroke or other acute intracranial abnormality demonstrated; Moderate severity chronic white matter changes, nonspecific but most likely related to chronic small vessel disease; Few scattered tiny lacunar infarcts of the brainstem; Given the findings are not entirely specific, clinical evaluation for possible multiple sclerosis recommended. - Vit B12, folate, TSH, ammonia all wnl, RPR negative - Consult PT, recommending rehab, patient unable to ambulate - Neurology and Neurosurgery following. Discussed with Neurosurgery on 2016. Neurosurgery is going to wait for a work up being done by neurology to rule out Guillain [place] syndrome or some other demyelinating disease. Bilateral DVT: patient complains of BLE edema and both legs feel "full" and "heavy" - Doppler U/S positive for bilateral DVT, started on Heparin drip - Patient underwent IVC filter placement on 01/25/2017 Type 2 Diabetes Mellitus: patient unsure of his home meds or dosing, RN to verify with his pharmacy - Continue Accu-Cheks before meals and at bedtime with low-dose NovoLog sliding scale coverage - Hypoglycemia protocol - HgbA1c 8.5 - Consult life educator and medical office secretary Full code. Kathryn Chairez DO Jan 26, 2017 14:50
[2017-01-26 14:58] LABS: GROSS BLOOD TUBE #1 4+ (0); SUPERNATE COLOR TUBE #1 CLEAR (CLEAR); VOLUME TUBE # 2 3.5 ML
[2017-01-26 14:59] LABS: GROSS BLOOD TUBE #2 4+ (0); GROSS BLOOD TUBE #3 4+ (0); SUPERNATE COLOR TUBE #2 CLEAR (CLEAR); SUPERNATE COLOR TUBE #3 CLEAR (CLEAR)
[2017-01-26] MEDS ORDERED: HYDROmorphone HCL PF 1 MG/ML VIAL IV PUSH PRN (15:00)
[2017-01-26 15:01] LABS: CSF EOSINOPHILS 3 %; CSF LYMPHOCYTES 12 %; CSF MONOCYTES 8 %; CSF NEUTROPHILS 77 %
[2017-01-26 15:03] LABS: GROSS BLOOD TUBE #4 4+ (0); SUPERNATE COLOR TUBE #4 CLEAR (CLEAR)
--- NOTE | 2017-01-26 15:08 | RADRPT ---
EXAM DATE/TIME: 01/26/2017 11:57 [facility] COMPARISON: No previous studies available for comparison. INDICATIONS : Patient with bilateral lower extremity weakness in need of lumbar puncture. MEDICAL HISTORY : Gouty arthritis, Chronic kidney disease secondary to multiple kidney stones, HTN, Diabetes, CHF SURGICAL HISTORY : 2008 Kidney stents ENCOUNTER: Initial ACUITY: 1 week PAIN SCORE: 8/10 LOCATION: All over LUMBAR PUNCTURE TIME: 1232 hours FLUORO TIME: 4.2 minutes IMAGE SERIES: 1 SEDATION TIME: 30 minutes CONTRAST: 3 cc Omnipaque (iohexol) 300 ACCESS LEVEL: L5-S1 FLUID: 11 cc of cloudy, red CSF was collected and sent to the laboratory for analysis. SEDATION: 1.) 2 mg midazolam (Versed) IV 2.) 175 mcg fentanyl (Sublimaze) IV PROCEDURE : 1. Fluoroscopic guided lumbar puncture. The risks, benefits and alternatives to the procedure were explained and verbal and written consent w as obtained. The site was prepped in sterile fashion. Full sterile technique was used, including ca p, mask, sterile gloves and gown and a large sterile sheet. Hand hygiene and 2% chlorhexidine and/or betadine/alcohol prep was utilized per protocol for cutaneous antisepsis. The skin and subcutaneous tissues were infiltrated with local anesthetic solution. With fluoroscopic guidance the lumbar thecal sac was punctured at the level above. The fluid describ ed above was removed without difficulty. Because the fluid was found to be quite bloody, myelographic contrast was injected to confirm good positioning in the central thecal sac and this revealed good p ositioning of the needle with satisfactory filling of the subarachnoid space. The patient tolerated the procedure well and there were no complications. CONCLUSION: Uncomplicated fluoroscopically guided lumbar puncture. Angelo Castelan MD on January 26, 2017 at 15:05 Board Certified Radiologist. This report was verified electronically.
--- NOTE | 2017-01-26 21:19 | HHI.PR ---
Review/Management Diagnosis Blood in CSF--? subarachnoid hemorrhage vs other etiology. Plan Will obtain MRA of brain and spine without contrast to assess for aneurysm, or spinal AVM. He is unable to have contrast due to renal insufficiency. If MRA negative consider repeat of LP. 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, Diagnosis/Plan: Subjective Subjective Comments No acute events reported weakness without change Active Medications Current Medications Medications (Trade) Dose Ordered Sig/Rosalia Route Start Time Stop Time Status Last Admin (NS Flush) 2 ml UNSCH PRN IV FLUSH 01/23/17 00:30 (NS Flush) 2 ml BID IV FLUSH 01/23/17 09:00 01/25/17 20:22 (Tylenol) 650 mg Q4H PRN PO 01/23/17 00:30 (Zofran Inj) 4 mg Q6H PRN IVP 01/23/17 00:30 ([place] 5-325 Mg) 1 tab Q4H PRN PO 01/23/17 00:30 01/23/17 19:39 ([place] 7.5-325 Mg) 1 tab Q4H PRN PO 01/23/17 00:30 01/26/17 19:03 (Narcan Inj) 0.4 mg UNSCH PRN IV 01/23/17 00:30 ([place]-Colace) 1 tab BID PO 01/23/17 09:00 01/26/17 10:00 (Milk Of Magnesia Liq) 30 ml Q12H PRN PO 01/23/17 00:30 (Senokot) 17.2 mg Q12H PRN PO 01/23/17 00:30 (Dulcolax Supp) 10 mg DAILY PRN RECTAL 01/23/17 00:30 (D50w (Vial) Inj) 50 ml UNSCH PRN IV 01/23/17 07:45 (Glucagon Inj) 1 mg UNSCH PRN OTHER 01/23/17 07:45 (NovoLOG SUPPLEMENTAL SCALE) 1 ACHS SLIDING SCALE SQ 01/23/17 11:00 01/23/17 14:02 Sodium Chloride 1,000 ml @ 84 mls/hr [id number] IV 01/23/17 18:30 01/26/17 09:59 (Tenormin) 25 mg DAILY PO 01/24/17 13:00 01/26/17 10:01 (Lipitor) 10 mg HS PO 01/24/17 21:00 01/25/17 20:23 (Catapres) 0.1 mg Q6H PRN PO 01/24/17 18:00 (Dilaudid Pf Inj) 0.5 mg Q4H PRN IV PUSH 01/26/17 15:00 Allergies Allergies Coded Allergies levofloxacin (Verified Allergy, Severe, 01/22/17) Exam I&O / VS 01/26/17 01/26/17 01/27/17 14:59 22:59 06:59 Intake Total 960 ml Balance 960 ml Intake Oral 960 ml # Voids 3 # Bowel Movements 0 Vital Signs Date Time Temp Pulse Resp B/P (MAP) Pulse Ox O2 Delivery O2 Flow Rate FiO2 01/26/17 16:00 100.2 94 16 157/70 (99) 95 01/26/17 13:30 88 18 159/87 (111) 96 01/26/17 13:15 88 20 138/76 (96) 96 01/26/17 13:00 97.7 88 20 132/83 (99) 96 01/26/17 08:00 99.1 93 14 105/58 (74) 95 01/26/17 04:30 99.9 91 18 112/66 (81) 94 01/26/17 00:30 97.6 92 17 130/91 (104) 94 Exam Comments alert, speech normal CN intact MOTOR 4/5 BUE, 3/5 bilateral iliopsoas, 4/5 bilateral quadricep and hamstring and tibialis anterior Arreflexic BUE and BLE Objective Radiology Results I spoke with Dr Castelan today to performed LP. He said csf was grossly bloody. He did not think this was a traumatic tap since contrast injected through the LP needle entered the thecal space Micro and Labs Laboratory Tests Test 01/26/17 10:51 01/26/17 12:52 01/26/17 20:20 White Blood Count 13.5 Red Blood Count 3.94 Hemoglobin 10.5 Hematocrit 32.8 Mean Corpuscular Volume 83.2 Mean Corpuscular Hemoglobin 26.7 Mean Corpuscular Hemoglobin Concent 32.1 Red Cell Distribution Width 17.6 Platelet Count 454 Mean Platelet Volume 7.3 Activated Partial Thromboplast Time 34.8 Blood Urea Nitrogen 37 Creatinine 2.78 Random Glucose 84 Calcium Level 8.7 Sodium Level 138 Potassium Level 3.9 Chloride Level 106 Carbon Dioxide Level 23.1 Anion Gap 9 Estimat Glomerular Filtration Rate 23 CSF Volume (Tube 1) 2.0 CSF Supernatant Color (tube 1) CLEAR CSF Gross Blood (Tube 1) 4+ CSF Volume (Tube 2) 3.5 CSF Supernatant Color (tube 2) CLEAR CSF Gross Blood (Tube 2) 4+ CSF Volume (Tube 3) 3.0 CSF Supernatant Color (tube 3) CLEAR CSF Gross Blood (Tube 3) 4+ CSF Volume (Tube 4) 2.0 CSF Supernatant Color (tube 4) CLEAR CSF Gross Blood (Tube 4) 4+ CSF RBC (Tube 4) CSF Neutrophils 77 CSF Lymphocytes 12 CSF Monocytes 8 CSF Eosinophils 3 CSF Glucose 65 CSF Total Protein 949.9 Date/Time Source Procedure Growth Status 01/22/17 21:05 Blood Peripheral Aerobic Blood Culture - Preliminary NO GROWTH IN 4 DAYS Resulted 01/22/17 21:05 Blood Peripheral Anaerobic Blood Culture - Preliminary NO GROWTH IN 4 DAYS Resulted 01/26/17 12:52 Cerebral Spinal Fluid Lumbar Puncture Fungal Smear Pending Received 01/26/17 12:52 Cerebral Spinal Fluid Lumbar Puncture Fungal Culture Pending Received Chirag Crenshaw PhD Jan 26, 2017 21:19
[2017-01-26] MEDS: ATORVASTATIN 10 MG TAB PO SCH (22:39)
[2017-01-27] MEDS: SODIUM CHLORIDE 0.9% FLUSH 10 ML FLUSH IV FLUSH PRN ×2 (00:01→04:53)
[2017-01-27 00:13] VITALS: BP 150/62; PULSE 102; RESP 21; TEMP 98.7; O2SAT 100
[2017-01-27] MEDS: methylPREDNISolone SOD SUCC 125 MG/2 ML VIAL IV PUSH SCH ×4 (01:11→18:00)
[2017-01-27] MEDS: SODIUM CHLOR 0.45% 1000 ML INJ 1,000 ML IV SCH ×2 (04:51→17:50)
[2017-01-27 05:21] VITALS: BP 138/72; PULSE 100; RESP 20; TEMP 98.5; O2SAT 100
[2017-01-27] MEDS: INSULIN ASPART SUPPLEMENTAL SCALE SQ SCH ×4 (07:00→23:35)
[2017-01-27 08:00] VITALS: BP 136/88; PULSE 94; RESP 18; TEMP 98.4; O2SAT 95
[2017-01-27] MEDS: DOCUSATE SODIUM 50 MG/SENNA 8.6 MG TAB PO SCH ×2 (09:00→21:00)
[2017-01-27] MEDS: SODIUM CHLORIDE 0.9% FLUSH 10 ML FLUSH IV FLUSH SCH ×2 (09:00→21:00)
[2017-01-27] MEDS: ATENOLOL 25 MG TAB PO SCH (09:16)
--- NOTE | 2017-01-27 11:12 | RADRPT ---
EXAM DATE/TIME: 01/27/2017 10:33 [facility] COMPARISON: No previous studies available for comparison. INDICATIONS : Aneurysm. MEDICAL HISTORY : Chronic obstructive pulmonary disease. Diabetes mellitus type 2. Renal failure, acute. SURGICAL HISTORY : IVC Filter placement. ENCOUNTER: Subsequent ACUITY: 4-6 days PAIN SCORE: 6/10 LOCATION: Right side. Please note a normal MRA of the brain does not entirely exclude the possibility of a small aneurysm, nor the possibility of distal intracranial vessel disease. TECHNIQUE: 3D time of flight MRA was performed. Source images, multiplanar STS MIP, and 3D volume MIP reconstru ctions were reviewed. FINDINGS: Anterior circulation: The internal carotid arteries demonstrate no abnormality or atherosclerotic change. A1 segments and m ore distal anterior cerebral arteries are symmetric and within normal limits. The middle cerebral art thea branches demonstrate symmetric flow related enhancement. No aneurysm or high-grade stenosis is id entified. Posterior circulation: There are patent posterior cerebral arteries bilaterally. Vertebral arteries are codominant. The basi lar artery and posterior cerebral arteries demonstrate no significant stenosis or abnormality. No ane urysm is visualized. There are patent posterior communicating arteries bilaterally. CONCLUSION: No intracranial vascular abnormality is identified. There is no aneurysm visualized. Angelo Allen MD on January 27, 2017 at 11:07 Board Certified Radiologist. This report was verified electronically.
[2017-01-27] MEDS: ACETAMINOPHEN/HYDROcodone 325 MG/7.5 MG TAB PO PRN ×2 (11:55→16:45)
[2017-01-27 12:00] VITALS: BP 140/82; PULSE 86; RESP 18; TEMP 97.6; O2SAT 94
--- NOTE | 2017-01-27 14:00 | HHI.NPPN ---
Subjective History of Present Illness 61-year-old with history of urinary stone Additional Remarks has neurological work up Review of Systems General Constitutional: Fatigue Objective Data Data Vital Signs Date Time Temp Pulse Resp B/P (MAP) Pulse Ox O2 Delivery O2 Flow Rate FiO2 01/27/17 12:00 97.6 86 18 140/82 (101) 94 01/27/17 08:00 98.4 94 18 136/88 (104) 95 01/27/17 05:21 98.5 100 20 138/72 (94) 100 01/27/17 00:13 98.7 102 21 150/62 (91) 100 01/26/17 21:17 98.7 101 21 130/68 (88) 100 01/26/17 16:00 100.2 94 16 157/70 (99) 95 -: 01/26/17 1051 01/26/17 1051 Physical Exam General Appearance: Well Developed Neck Neck Exam: Neck Supple Pulmonary Resp Exam: Clear Bilaterally, Breath Sounds Equal Cardiology CV Exam: Regular, Normal Sinus Rhythm Gastrointestinal/Abdomen GI Exam: Soft, Non-Tender, Bowel Sounds Present Extremeties Extremities Exam: No Edema Neurologic Neuro Exam: Alert, Moving All Extremities Assessment/Plan Problem List: (1) Acute renal failure ICD Codes: N17.9 - Acute kidney failure, unspecified Plan: Continue to observe RIOS/SPEP neg Patient can be followed as outpatient he has LP done fu BMP cr 2.7 on soluMedrol for demyelinization LP traumatic (2) CKD (chronic kidney disease) stage 3, GFR 30-59 ml/min ICD Codes: N18.3 - Chronic kidney disease, stage 3 (moderate) Plan: Ultrasound revealed chronic kidney disease there is no kidney stones (3) Diabetes ICD Codes: E11.9 - Type 2 diabetes mellitus without complications Plan: Continue to monitor (4) Distal end of ulna fracture, closed ICD Codes: S52.609A - Unspecified fracture of lower end of unspecified ulna, initial encounter for closed fracture Plan: Orthopedic is following Problem Qualifiers (1) Acute renal failure: Qualified Codes: N17.9 - Acute kidney failure, unspecified Laura Liao MD Jan 27, 2017 14:00
--- NOTE | 2017-01-27 14:06 | HHI.PR ---
Review/Management Diagnosis Blood in CSF--? subarachnoid hemorrhage vs other etiology. vs traumatic tap possible transverse myelitis , ? MS (MRI brain is suggestive) Plan continue solumedrol 250 mg q 6 hr for total of 5 days consider repeat LP next week if not improving Diagnosis/Plan: Subjective Subjective Comments No acute events reported He reports improvement in strength in arms and legs since starting solumedrol Active Medications Current Medications Medications (Trade) Dose Ordered Sig/Rosalia Route Start Time Stop Time Status Last Admin (NS Flush) 2 ml UNSCH PRN IV FLUSH 01/23/17 00:30 01/27/17 04:53 (NS Flush) 2 ml BID IV FLUSH 01/23/17 09:00 01/25/17 20:22 (Tylenol) 650 mg Q4H PRN PO 01/23/17 00:30 (Zofran Inj) 4 mg Q6H PRN IVP 01/23/17 00:30 ([place] 5-325 Mg) 1 tab Q4H PRN PO 01/23/17 00:30 01/23/17 19:39 ([place] 7.5-325 Mg) 1 tab Q4H PRN PO 01/23/17 00:30 01/27/17 11:55 (Narcan Inj) 0.4 mg UNSCH PRN IV 01/23/17 00:30 ([place]-Colace) 1 tab BID PO 01/23/17 09:00 01/26/17 10:00 (Milk Of Magnesia Liq) 30 ml Q12H PRN PO 01/23/17 00:30 (Senokot) 17.2 mg Q12H PRN PO 01/23/17 00:30 (Dulcolax Supp) 10 mg DAILY PRN RECTAL 01/23/17 00:30 (D50w (Vial) Inj) 50 ml UNSCH PRN IV 01/23/17 07:45 (Glucagon Inj) 1 mg UNSCH PRN OTHER 01/23/17 07:45 (NovoLOG SUPPLEMENTAL SCALE) 1 ACHS SLIDING SCALE SQ 01/23/17 11:00 01/27/17 13:56 Sodium Chloride 1,000 ml @ 84 mls/hr [id number] IV 01/23/17 18:30 01/27/17 04:51 (Tenormin) 25 mg DAILY PO 01/24/17 13:00 01/27/17 09:16 (Lipitor) 10 mg HS PO 01/24/17 21:00 01/26/17 22:39 (Catapres) 0.1 mg Q6H PRN PO 01/24/17 18:00 (Dilaudid Pf Inj) 0.5 mg Q4H PRN IV PUSH 01/26/17 15:00 01/27/17 00:01 (SoluMEDROL INJ) 250 mg Q6HR IV PUSH 01/27/17 00:00 01/27/17 04:52 Allergies Allergies Coded Allergies levofloxacin (Verified Allergy, Severe, 01/22/17) Exam I&O / VS Vital Signs Date Time Temp Pulse Resp B/P (MAP) Pulse Ox O2 Delivery O2 Flow Rate FiO2 01/27/17 12:00 97.6 86 18 140/82 (101) 94 01/27/17 08:00 98.4 94 18 136/88 (104) 95 01/27/17 05:21 98.5 100 20 138/72 (94) 100 01/27/17 00:13 98.7 102 21 150/62 (91) 100 01/26/17 21:17 98.7 101 21 130/68 (88) 100 01/26/17 16:00 100.2 94 16 157/70 (99) 95 Exam Comments alert, speech normal CN intact MOTOR 4/5 BUE, 4/5 bilateral iliopsoas, 4+/5 bilateral quadricep and hamstring and tibialis anterior Arreflexic BUE and BLE Objective Radiology Results MRA brain--no aneurysm or avm Micro and Labs Laboratory Tests Test 01/26/17 20:20 Date/Time Source Procedure Growth Status 01/22/17 21:05 Blood Peripheral Aerobic Blood Culture - Final NO GROWTH IN 5 DAYS Complete 01/22/17 21:05 Blood Peripheral Anaerobic Blood Culture - Final NO GROWTH IN 5 DAYS Complete 01/26/17 12:52 Cerebral Spinal Fluid Lumbar Puncture Fungal Smear Pending Received 01/26/17 12:52 Cerebral Spinal Fluid Lumbar Puncture Fungal Culture Pending Received Chirag Crenshaw PhD Jan 27, 2017 14:06
--- NOTE | 2017-01-27 15:18 | HHI.PR ---
Subjective Remarks Follow up for fall, lower extremity weakness, acute renal failure. Patient is more alert today compared to previous days. No acute concerns. Objective Vitals Vital Signs Date Time Temp Pulse Resp B/P (MAP) Pulse Ox O2 Delivery O2 Flow Rate FiO2 01/27/17 12:00 97.6 86 18 140/82 (101) 94 01/27/17 08:00 98.4 94 18 136/88 (104) 95 01/27/17 05:21 98.5 100 20 138/72 (94) 100 01/27/17 00:13 98.7 102 21 150/62 (91) 100 01/26/17 21:17 98.7 101 21 130/68 (88) 100 01/26/17 16:00 100.2 94 16 157/70 (99) 95 I/O 01/26/17 01/26/17 01/26/17 01/27/17 01/27/17 01/27/17 07:00 15:00 23:00 07:00 15:00 23:00 Intake Total 477 ml 960 ml Output Total 700 ml Balance -223 ml 960 ml Intake Oral 477 ml 960 ml Output Urine Total 700 ml # Voids 3 3 # Bowel Movements 1 0 Result Diagram: 01/26/17 1051 01/26/17 1051 Imaging Last Impressions Head Magnetic Resonance Angiography 01/27/17 0000 Signed Impressions: Service Date/Time: Friday, January 27, 2017 10:33 - CONCLUSION: No intracranial vascular abnormality is identified. There is no aneurysm visualized. Angelo Allen MD Lumbar Puncture Fluoroscopy 01/26/17 0000 Signed Impressions: Service Date/Time: Thursday, January 26, 2017 11:57 - CONCLUSION: Uncomplicated fluoroscopically guided lumbar puncture. Angelo Castelan MD IVC Filter Placement X-Ray 01/25/17 0000 Signed Impressions: Service Date/Time: January 10:29 - CONCLUSION: Uncomplicated inferior vena cava filter placement as above. Yung Fowler MD Thoracic Spine MRI 01/24/17 0000 Signed Impressions: Service Date/Time: Tuesday, January 24, 2017 22:29 - CONCLUSION: 1. Mild degenerative spondylosis most prominently at T11-L1 with slight effacement of the anterior thecal sac and left lateral recess. No significant neural foraminal stenosis. 2. No acute fracture. Juan Bhakta MD Renal Ultrasound 01/23/17 Signed Impressions: Service Date/Time: Monday, January 23, 2017 08:53 - CONCLUSION: 1. Evidence of chronic parenchymal disease of both kidneys. No obstructive uropathy or other acute abnormality demonstrated. 2. Trace ascites, nonspecific. Angelo Garrido MD Lumbar Spine MRI 01/23/17 Signed Impressions: Service Date/Time: Monday, January 23, 2017 17:01 - CONCLUSION: 1. At L4-5 is a broad-based disc protrusion with severe central canal and lateral recess stenosis and flattening of the exiting right L4 nerve root. 2. L5-S1 there is a disc protrusion and moderate stenosis with flattening of the exiting L5 nerve roots bilaterally. 3. At L3-4 there is a moderate to severe central stenosis and lateral recess stenosis with mild foraminal stenosis. 4. No acute fracture or spondylolisthesis. Trace Holloway MD Lower Extremity Ultrasound 01/23/17 Signed Impressions: Service Date/Time: Monday, January 23, 2017 09:53 - CONCLUSION: Bilateral focal lower extremity DVT involving the posterior tibial veins. Angelo Garrido MD Cervical Spine MRI 01/23/17 Signed Impressions: Service Date/Time: Monday, January 23, 2017 17:01 - CONCLUSION: 1. Multilevel cervical spine degenerative changes as above. 2. Mild degrees of spinal stenosis at C3/C4-C6/C7. No cord compression or cord signal abnormality. 3. Age indeterminate left paracentral/foraminal disc protrusion at C6/C7. 4. Multilevel foraminal stenosis, most severe on the left at C6/C7. Please see individual levels above. 5. No fracture or subluxation of the cervical spine. Angelo Garrido MD Brain MRI 01/23/17 Signed Impressions: Service Date/Time: Monday, January 23, 2017 17:01 - CONCLUSION: 1. No acute stroke or other acute intracranial abnormality demonstrated. 2. Moderate severity chronic white matter changes, nonspecific but most likely related to chronic small vessel disease. 3. Few scattered tiny lacunar infarcts of the brainstem. 4. Given the findings are not entirely specific, clinical evaluation for possible multiple sclerosis recommended. Angelo Garrido MD Head CT [id number]/22/[id number] Signed Impressions: Service Date/Time: Sunday, January 22, 2017 22:39 - CONCLUSION: Negative noncontrast CT Benjamin Person MD Chest X-Ray [id number]/22/[id number] Signed Impressions: Service Date/Time: Sunday, January 22, 2017 22:18 - CONCLUSION: No acute disease. Benjamin Person MD Wrist X-Ray [id number]/22/[id number] Signed Impressions: Service Date/Time: Sunday, January 22, 2017 21:21 - CONCLUSION: 1. Nondisplaced oblique fracture through the distal ulna. 2. Chronic appearing deformity of the distal ulna as well. 3. Extensive degenerative change and osteopenia. Benjamin Person MD Knee X-Ray [id number]/22/[id number] Signed Impressions: Service Date/Time: Sunday, January 22, 2017 21:17 - CONCLUSION: 1. Evidence of moderate to large joint effusion. 2. No acute fracture or malalignment. 3. Mild 3 compartment osteoarthritic change. Benjamin Person MD Hip and Pelvis X-Ray [id number]/22/[id number] Signed Impressions: Service Date/Time: Sunday, January 22, 2017 21:10 - CONCLUSION: 1. Mild to moderate degenerative change of both hips with no acute fracture or malalignment. There is flattening and remodeling of the right humeral head. Benjamin Person MD Objective Remarks GENERAL: Alert, NAD. SKIN: Warm and dry. HEAD: Normocephalic. EYES: No scleral icterus. No injection or drainage. NECK: Supple, trachea midline. No JVD or lymphadenopathy. CARDIOVASCULAR: Regular rate and rhythm without murmurs, gallops, or rubs. RESPIRATORY: Breath sounds equal bilaterally. No accessory muscle use. GASTROINTESTINAL: Abdomen soft, non-tender, nondistended. MUSCULOSKELETAL: No cyanosis, or edema. 3/5 lower ext strength, 4/5 upper ext. BACK: Nontender without obvious deformity. No CVA tenderness. Procedures IVC filter placement 01/25/2017 LP 01/26/2017 A/P Problem List: (1) Distal end of ulna fracture, closed ICD Code: S52.609A - Unspecified fracture of lower end of unspecified ulna, initial encounter for closed fracture (2) Diabetes mellitus ICD Code: E11.9 - Type 2 diabetes mellitus without complications Assessment and Plan 61-year-old male with history of diabetes mellitus, gouty arthritis, COPD secondary to recurrent nephrolithiasis per the patient, presents with multiple complaints including bilateral lower extremity weakness, falls, right arm pain. Right Distal Ulna Oblique Fracture: RUE xray images reviewed. - consulted ortho, nonsurgical, recommends continuing splint, plan to transition to cast as outpatient - Continue norco prn and IV Dilaudid prn breakthrough pain Concern for septic arthritis: patient met sepsis criteria with leukocytosis WBC 19.3K, tachycardia HR 132, however afebrile, lactic acid 1.6. Patient has also been on recent steroids as outpatient. WBC 15.8 on 01/24/2017 - elevations in CRP - 31 and ESR - 22 - initially given antibiotics however evaluation by ortho, not concerned for septic joint, will d/c antibiotics and cancel ID consult Acute Renal Failure on CKD stage 3-4: no previous labs to compare. - No prior labs available for comparison - continue on IVF, renal function slowly improving. Creatinine 3.7 --> 2.78. - avoid nephrotoxins - Renal U/S showed evidence of chronic parenchymal disease both kidneys; no obstructive uropathy - consulted nephrology, appreciate assistance Severe Lumbar Spine Stenosis with Significant Lower Extremity Weakness and Recurrent Falls: progressive over the past few months, failed outpatient physical therapy and acupuncture - C-spine MRI showed Multilevel cervical spine degenerative changes; Mild degrees of spinal stenosis at C3/C4-C6/C7; No cord compression or cord signal abnormality; Age indeterminate left paracentral/foraminal disc protrusion at C6/ C7; Multilevel foraminal stenosis, most severe on the left at C6/C7; No fracture or subluxation of the cervical spine. - L-spine MRI showed L4-5 broad-based disc protrusion with severe central canal and lateral recess stenosis and flattening of the exiting right L4 nerve root; L5-S1 there is a disc protrusion and moderate stenosis with flattening of the exiting L5 nerve roots bilaterally; At L3-4 there is a moderate to severe central stenosis and lateral recess stenosis with mild foraminal stenosis; No acute fracture or spondylolisthesis. - Brain MRI showed No acute stroke or other acute intracranial abnormality demonstrated; Moderate severity chronic white matter changes, nonspecific but most likely related to chronic small vessel disease; Few scattered tiny lacunar infarcts of the brainstem; Given the findings are not entirely specific, clinical evaluation for possible multiple sclerosis recommended. - Vit B12, folate, TSH, ammonia all wnl, RPR negative - Consult PT, recommending rehab, patient unable to ambulate - Neurology and Neurosurgery following. Discussed with Neurosurgery on 2016. Neurosurgery is going to wait for a work up being done by neurology to rule out Guillain Mcdowell syndrome or some other demyelinating disease. 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 Kathryn Chariez DO Jan 27, 2017 3:18 pm
[2017-01-27 16:00] VITALS: BP 138/83; PULSE 86; RESP 18; TEMP 98.3; O2SAT 93
--- NOTE | 2017-01-27 17:33 | HHI.NSPN ---
History Interval History Mr. Kerr is a 61-year-old man with history of osteoarthritis, diabetes mellitus , hypertension and hyperlipidemia,.gout and chronic renal failure who states he has about a 2 or 3 day history of weakness involving his upper and lower extremities, which came on fairly gradually, but has been progressive. He also has chronic back pain. The patient says he fell last week and severe pain was noted in right wrist, resulting in a fracture of the right arm. He did not suffer a head injury. Denies loss of consciousness. Denies seizure activity. Denies incontinence of stool or urine or tongue biting. He denies any double vision or speech changes. He reports chronic kidney disease, in 2004 had multiple kidney stones. She denies significant sensory loss. He denies incontinence of stool or urinary retention. MRI of the lumbar spine show evidence of multilevel spinal stenosis. Neurosurgical consultation was requested Exam Results Vital Signs Date Time Temp Pulse Resp B/P (MAP) Pulse Ox O2 Delivery O2 Flow Rate FiO2 01/27/17 16:00 98.3 86 18 138/83 (101) 93 01/24/17 07:31 21 Intake and Output 01/27/17 01/27/17 01/28/17 08:00 16:00 00:00 Intake Total 240 ml Output Total 600 ml Balance -360 ml Physical Examination Mr Kerr is alert,awake Patient is somewhat confused this evening. Trying to get out of bed without assistance. When asked the year, he states "somewhere between 2015 and 2018". States that it is December. He knows that he is in the hospital. Cranial nerve examination demonstrates the pupils to be equal, round, and reactive to light. Extra-ocular movements are intact with normal convergence. Facial motor function appears normal and symmetrical. Face sensation, hearing, visual allen, and olfaction can not be assessed properly due to the patients condition. The patient has an intact corneal reflex and a gag reflex. Sternocleidomastoid and trapezius have normal and symmetrical strength. Other cranial nerves are intact. Neck is soft and supple. Cervical spine has a normal range of motion of the cervical spine without pain. There is no tenderness to palpation to the spinous processes or paraspinal muscles. Motor bulk normal. On motor exam he has give-way weakness in the upper extremities at 4+/5 proximal and distal. his right arm is in a cast. He is weak in the lower extremities, with mostly 3+-4/5 proximal and 3/5 distal lower extremity strength. He does not indicate any definite decreased sensation in the extremities. Deep tendom Reflexes are areflexic in both upper and lower extremities. There is no Babinski sign present. Cerebellar examination is limited due to the patient condition, but no obvious deficits are noted. Medical Decision Making Impression and Plan Impression: 1. Patient has had some improvement in motor function with steroids. Quadriparesis, etiology remains undetermined. Final CSF/laboratory results pending. 2. Moderate to severe mid to lower lumbar spine stenosis. Plan: Findings were discussed with neurology this morning. Await completion of results as noted above. Continuing therapy Exam seems to be improved at present on steroids. Discussed with patient Anticipate he will eventually require decompression of the lumbar stenosis when otherwise stabilized. Cesar Mcfarlane MD Jan 27, 2017 17:33
[2017-01-27 19:00] VITALS: BP 178/56; PULSE 79; RESP 20; TEMP 98.2; O2SAT 96
[2017-01-27] MEDS: ATORVASTATIN 10 MG TAB PO SCH (22:22)
[2017-01-28] VITALS (7 sets, daily range): BP systolic 140–197; BP diastolic 61–92; PULSE 63–97; RESP 16–22; TEMP 97.1–97.7; O2SAT 92–98
[2017-01-28] MEDS: ACETAMINOPHEN/HYDROcodone 325 MG/7.5 MG TAB PO PRN (00:48)
[2017-01-28] MEDS: methylPREDNISolone SOD SUCC 125 MG/2 ML VIAL IV PUSH SCH ×4 (01:26→17:46)
[2017-01-28] MEDS ORDERED: LORazepam 2 MG/ML VIAL IV PUSH ONE (03:45)
[2017-01-28] MEDS: SODIUM CHLOR 0.45% 1000 ML INJ 1,000 ML IV SCH ×2 (05:45→17:45)
[2017-01-28] MEDS: INSULIN ASPART SUPPLEMENTAL SCALE SQ SCH ×4 (06:20→21:40)
--- NOTE | 2017-01-28 08:11 | HHI.PR ---
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 Mr. Kerr is sleepy. However, he was agitated overnight and required. Patient is afebrile. Objective Vitals Vital Signs Date Time Temp Pulse Resp B/P (MAP) Pulse Ox O2 Delivery O2 Flow Rate FiO2 01/28/17 03:16 97.2 97 16 158/76 (103) 95 01/28/17 02:54 97 165/87 (113) 01/28/17 00:00 97.7 86 22 197/92 (127) 98 01/27/17 19:00 98.2 79 20 178/56 (96) 96 01/27/17 16:00 98.3 86 18 138/83 (101) 93 01/27/17 12:00 97.6 86 18 140/82 (101) 94 I/O 01/27/17 01/27/17 01/27/17 01/28/17 01/28/17 01/28/17 07:00 15:00 23:00 07:00 15:00 23:00 Intake Total 240 ml 240 ml Output Total 600 ml 300 ml 350 ml Balance -360 ml -300 ml -110 ml Intake Oral 240 ml 240 ml Output Urine Total 600 ml 300 ml 350 ml # Voids 3 2 # Bowel Movements 1 Result Diagram: 01/26/17 1051 01/26/17 1051 Imaging Last Impressions Head Magnetic Resonance Angiography 01/27/17 0000 Signed Impressions: Service Date/Time: Friday, January 27, 2017 10:33 - CONCLUSION: No intracranial vascular abnormality is identified. There is no aneurysm visualized. Angelo Allen MD Lumbar Puncture Fluoroscopy 01/26/17 0000 Signed Impressions: Service Date/Time: Thursday, January 26, 2017 11:57 - CONCLUSION: Uncomplicated fluoroscopically guided lumbar puncture. Angelo Castelan MD IVC Filter Placement X-Ray 01/25/17 0000 Signed Impressions: Service Date/Time: January 10:29 - CONCLUSION: Uncomplicated inferior vena cava filter placement as above. Yung Fowler MD Thoracic Spine MRI 01/24/17 0000 Signed Impressions: Service Date/Time: Tuesday, January 24, 2017 22:29 - CONCLUSION: 1. Mild degenerative spondylosis most prominently at T11-L1 with slight effacement of the anterior thecal sac and left lateral recess. No significant neural foraminal stenosis. 2. No acute fracture. Juan Bhakta MD Renal Ultrasound 01/23/17 Signed Impressions: Service Date/Time: Monday, January 23, 2017 08:53 - CONCLUSION: 1. Evidence of chronic parenchymal disease of both kidneys. No obstructive uropathy or other acute abnormality demonstrated. 2. Trace ascites, nonspecific. Angelo Garrido MD Lumbar Spine MRI 01/23/17 Signed Impressions: Service Date/Time: Monday, January 23, 2017 17:01 - CONCLUSION: 1. At L4-5 is a broad-based disc protrusion with severe central canal and lateral recess stenosis and flattening of the exiting right L4 nerve root. 2. L5-S1 there is a disc protrusion and moderate stenosis with flattening of the exiting L5 nerve roots bilaterally. 3. At L3-4 there is a moderate to severe central stenosis and lateral recess stenosis with mild foraminal stenosis. 4. No acute fracture or spondylolisthesis. Trace Holloway MD Lower Extremity Ultrasound 01/23/17 Signed Impressions: Service Date/Time: Monday, January 23, 2017 09:53 - CONCLUSION: Bilateral focal lower extremity DVT involving the posterior tibial veins. Angelo Garrido MD Cervical Spine MRI 01/23/17 Signed Impressions: Service Date/Time: Monday, January 23, 2017 17:01 - CONCLUSION: 1. Multilevel cervical spine degenerative changes as above. 2. Mild degrees of spinal stenosis at C3/C4-C6/C7. No cord compression or cord signal abnormality. 3. Age indeterminate left paracentral/foraminal disc protrusion at C6/C7. 4. Multilevel foraminal stenosis, most severe on the left at C6/C7. Please see individual levels above. 5. No fracture or subluxation of the cervical spine. Angelo Garrido MD Brain MRI 01/23/17 Signed Impressions: Service Date/Time: Monday, January 23, 2017 17:01 - CONCLUSION: 1. No acute stroke or other acute intracranial abnormality demonstrated. 2. Moderate severity chronic white matter changes, nonspecific but most likely related to chronic small vessel disease. 3. Few scattered tiny lacunar infarcts of the brainstem. 4. Given the findings are not entirely specific, clinical evaluation for possible multiple sclerosis recommended. Angelo Garrido MD Head CT 01/22/172202 Signed Impressions: Service Date/Time: Sunday, January 22, 2017 22:39 - CONCLUSION: Negative noncontrast CT Benjamin Person MD Chest X-Ray 01/22/172202 Signed Impressions: Service Date/Time: Sunday, January 22, 2017 22:18 - CONCLUSION: No acute disease. Benjamin Person MD Wrist X-Ray 01/22/172053 Signed Impressions: Service Date/Time: Sunday, January 22, 2017 21:21 - CONCLUSION: 1. Nondisplaced oblique fracture through the distal ulna. 2. Chronic appearing deformity of the distal ulna as well. 3. Extensive degenerative change and osteopenia. Benjamin Person MD Knee X-Ray 01/22/172053 Signed Impressions: Service Date/Time: Sunday, January 22, 2017 21:17 - CONCLUSION: 1. Evidence of moderate to large joint effusion. 2. No acute fracture or malalignment. 3. Mild 3 compartment osteoarthritic change. Benjamin Person MD Hip and Pelvis X-Ray 01/22/172053 Signed Impressions: Service Date/Time: Sunday, January 22, 2017 21:10 - CONCLUSION: 1. Mild to moderate degenerative change of both hips with no acute fracture or malalignment. There is flattening and remodeling of the right humeral head. Benjamin Person MD Objective Remarks GENERAL: Alert, NAD. SKIN: Warm and dry. HEAD: Normocephalic. EYES: No scleral icterus. No injection or drainage. NECK: Supple, trachea midline. No JVD or lymphadenopathy. CARDIOVASCULAR: Regular rate and rhythm without murmurs, gallops, or rubs. RESPIRATORY: Breath sounds equal bilaterally. No accessory muscle use. GASTROINTESTINAL: Abdomen soft, non-tender, nondistended. MUSCULOSKELETAL: No cyanosis, or edema. 3/5 lower ext strength, 4/5 upper ext. BACK: Nontender without obvious deformity. No CVA tenderness. Procedures IVC filter placement 01/25/2017 LP 01/26/2017 A/P Problem List: (1) Distal end of ulna fracture, closed ICD Code: S52.609A - Unspecified fracture of lower end of unspecified ulna, initial encounter for closed fracture (2) Diabetes mellitus ICD Code: E11.9 - Type 2 diabetes mellitus without complications Assessment and Plan 61-year-old male with history of diabetes mellitus, gouty arthritis, COPD secondary to recurrent nephrolithiasis per the patient, presents with multiple complaints including bilateral lower extremity weakness, falls, right arm pain. Right Distal Ulna Oblique Fracture: RUE xray images reviewed. - consulted ortho, nonsurgical, recommends continuing splint, plan to transition to cast as outpatient - Continue norco prn and IV Dilaudid prn breakthrough pain Concern for septic arthritis: patient met sepsis criteria with leukocytosis WBC 19.3K, tachycardia HR 132, however afebrile, lactic acid 1.6. Patient has also been on recent steroids as outpatient. WBC 15.8 on 01/24/2017 - elevations in CRP - 31 and ESR - 22 - initially given antibiotics however evaluation by ortho, not concerned for septic joint, will d/c antibiotics and cancel ID consult Acute Renal Failure on CKD stage 3-4: no previous labs to compare. - No prior labs available for comparison - continue on IVF, renal function slowly improving. Creatinine 3.7 --> 2.78. - avoid nephrotoxins - Renal U/S showed evidence of chronic parenchymal disease both kidneys; no obstructive uropathy - consulted nephrology, appreciate assistance Severe Lumbar Spine Stenosis with Significant Lower Extremity Weakness and Recurrent Falls: progressive over the past few months, failed outpatient physical therapy and acupuncture - C-spine MRI showed Multilevel cervical spine degenerative changes; Mild degrees of spinal stenosis at C3/C4-C6/C7; No cord compression or cord signal abnormality; Age indeterminate left paracentral/foraminal disc protrusion at C6/ C7; Multilevel foraminal stenosis, most severe on the left at C6/C7; No fracture or subluxation of the cervical spine. - L-spine MRI showed L4-5 broad-based disc protrusion with severe central canal and lateral recess stenosis and flattening of the exiting right L4 nerve root; L5-S1 there is a disc protrusion and moderate stenosis with flattening of the exiting L5 nerve roots bilaterally; At L3-4 there is a moderate to severe central stenosis and lateral recess stenosis with mild foraminal stenosis; No acute fracture or spondylolisthesis. - Brain MRI showed No acute stroke or other acute intracranial abnormality demonstrated; Moderate severity chronic white matter changes, nonspecific but most likely related to chronic small vessel disease; Few scattered tiny lacunar infarcts of the brainstem; Given the findings are not entirely specific, clinical evaluation for possible multiple sclerosis recommended. - Vit B12, folate, TSH, ammonia all wnl, RPR negative - Consult PT, recommending rehab, patient unable to ambulate - Neurology and Neurosurgery following. Discussed with Neurosurgery on 2016. Neurosurgery is going to wait for a work up being done by neurology to rule out Guillain [place]im[place] syndrome or some other demyelinating disease. Bilateral DVT: patient complains of BLE edema and both legs feel "full" and "heavy" - Doppler U/S positive for bilateral DVT, started on Heparin drip - Patient underwent IVC filter placement on 01/25/2017 Type 2 Diabetes Mellitus: Patient takes Glipizide at home - Continue Accu-Cheks before meals and at bedtime with low-dose NovoLog sliding scale coverage - Hypoglycemia protocol - HgbA1c 8.5 - Consult chemical educator and spa therapist Full code. Kathryn Chairez DO Jan 28, 2017 8:11 am
[2017-01-28] MEDS: SODIUM CHLORIDE 0.9% FLUSH 10 ML FLUSH IV FLUSH SCH ×2 (09:00→21:38)
[2017-01-28] MEDS: DOCUSATE SODIUM 50 MG/SENNA 8.6 MG TAB PO SCH ×2 (10:11→21:38)
[2017-01-28] MEDS: amLODIPine BESYLATE 5 MG TAB PO SCH (10:11)
[2017-01-28] MEDS: ATENOLOL 25 MG TAB PO SCH (10:11)
--- NOTE | 2017-01-28 11:35 | HHI.NPPN ---
Subjective History of Present Illness 61-year-old with history of urinary stone Additional Remarks has neurological work up Review of Systems General Constitutional: Fatigue Objective Data Data Vital Signs Date Time Temp Pulse Resp B/P (MAP) Pulse Ox O2 Delivery O2 Flow Rate FiO2 01/28/17 08:00 97.2 69 20 174/88 (116) 92 01/28/17 03:16 97.2 97 16 158/76 (103) 95 01/28/17 02:54 97 165/87 (113) 01/28/17 00:00 97.7 86 22 197/92 (127) 98 01/27/17 19:00 98.2 79 20 178/56 (96) 96 01/27/17 16:00 98.3 86 18 138/83 (101) 93 01/27/17 12:00 97.6 86 18 140/82 (101) 94 -: 01/26/17 1051 01/26/17 1051 Physical Exam General Appearance: Well Developed Neck Neck Exam: Neck Supple Pulmonary Resp Exam: Clear Bilaterally, Breath Sounds Equal Cardiology CV Exam: Regular, Normal Sinus Rhythm Gastrointestinal/Abdomen GI Exam: Soft, Non-Tender, Bowel Sounds Present Extremeties Extremities Exam: No Edema Neurologic Neuro Exam: Alert, Moving All Extremities Assessment/Plan Problem List: (1) Acute renal failure ICD Codes: N17.9 - Acute kidney failure, unspecified Plan: Continue to observe RIOS/SPEP neg Patient can be followed as outpatient he has LP done fu BMP cr 2.7 on soluMedrol for demyelinization LP traumatic DVT IVC filter (2) CKD (chronic kidney disease) stage 3, GFR 30-59 ml/min ICD Codes: N18.3 - Chronic kidney disease, stage 3 (moderate) Plan: Ultrasound revealed chronic kidney disease there is no kidney stones (3) Diabetes ICD Codes: E11.9 - Type 2 diabetes mellitus without complications Plan: Continue to monitor (4) Distal end of ulna fracture, closed ICD Codes: S52.609A - Unspecified fracture of lower end of unspecified ulna, initial encounter for closed fracture Plan: Orthopedic is following Problem Qualifiers (1) Acute renal failure: Qualified Codes: N17.9 - Acute kidney failure, unspecified Laura Liao MD Jan 28, 2017 11:35
[2017-01-28] MEDS: cloNIDine HCL 0.1 MG TAB PO PRN (12:34)
--- NOTE | 2017-01-28 15:21 | HHI.NSPN ---
(Edu Bailey) History Chief Complaint: Unable to obtain due to patient's clinical condition. (Edu Bailey) Interval History Mr. Kerr is a 61-year-old man with history of osteoarthritis, diabetes mellitus , hypertension and hyperlipidemia,.gout and chronic renal failure who states he has about a 2 or 3 day history of weakness involving his upper and lower extremities, which came on fairly gradually, but has been progressive. He also has chronic back pain. The patient says he fell last week and severe pain was noted in right wrist, resulting in a fracture of the right arm. He did not suffer a head injury. Denies loss of consciousness. Denies seizure activity. Denies incontinence of stool or urine or tongue biting. He denies any double vision or speech changes. He reports chronic kidney disease, in 2004 had multiple kidney stones. She denies significant sensory loss. He denies incontinence of stool or urinary retention. MRI of the lumbar spine show evidence of multilevel spinal stenosis. Neurosurgical consultation was requested 01/25. He continues to report pain and weakness of his upper extremities and bilateral lower extremities. Workup in [place] 01/27: Patient is somewhat confused this evening. Trying to get out of bed without assistance. 01/28: This afternoon the patient is extremely lethargic and only responses to a sternal rub. He briefly arouses and then drifts back off to sleep. He has soft restraints in place except for the RUE. The patient did receive a dose of lorazepam 1 mg IV at 0344 this morning. He has not received any further benzodiazepines or narcotic pain medication or other sedating drugs. (Edu Bailey) System Review Comments Unable to obtain due to patient's clinical condition. (Edu Bailey) Exam Results 01/26/17 01/26/17 01/27/17 01/27/17 01/28/17 01/28/17 05:59 17:59 05:59 17:59 05:59 17:59 Intake Total 240 ml 1197 ml 240 ml 240 ml Output Total 700 ml 600 ml 300 ml 350 ml Balance -460 ml 1197 ml -360 ml -300 ml -110 ml Intake Oral 240 ml 1197 ml 240 ml 240 ml Output Urine Total 700 ml 600 ml 300 ml 350 ml # Voids 3 3 2 # Bowel Movements 1 0 1 Vital Signs Date Time Temp Pulse Resp B/P (MAP) Pulse Ox O2 Delivery O2 Flow Rate FiO2 01/28/17 12:00 97.4 68 18 180/86 (117) 95 01/28/17 08:00 97.2 69 20 174/88 (116) 92 01/28/17 03:16 97.2 97 16 158/76 (103) 95 01/28/17 02:54 97 165/87 (113) 01/28/17 00:00 97.7 86 22 197/92 (127) 98 01/27/17 19:00 98.2 79 20 178/56 (96) 96 01/27/17 16:00 98.3 86 18 138/83 (101) 93 01/27/17 12:00 97.6 86 18 140/82 (101) 94 01/27/17 08:00 98.4 94 18 136/88 (104) 95 01/27/17 05:21 98.5 100 20 138/72 (94) 100 01/27/17 00:13 98.7 102 21 150/62 (91) 100 01/26/17 21:17 98.7 101 21 130/68 (88) 100 01/26/17 16:00 100.2 94 16 157/70 (99) 95 01/26/17 13:30 88 18 159/87 (111) 96 01/26/17 13:15 88 20 138/76 (96) 96 01/26/17 13:00 97.7 88 20 132/83 (99) 96 01/26/17 08:00 99.1 93 14 105/58 (74) 95 01/26/17 04:30 99.9 91 18 112/66 (81) 94 01/26/17 00:30 97.6 92 17 130/91 (104) 94 01/25/17 20:30 97.9 98 17 128/70 (89) 94 01/25/17 16:00 98.3 94 20 133/74 (93) 97 (Edu Bailey) Physical Examination GENERAL: Patient extremely lethargic, in soft restraints to LUE & BLE. SKIN: Cool, dry & intact w/multiple healing wounds, no evident rashes, splint to distal RUE. HEENT: Normocephalic, atraumatic. NECK: No JVD, trachea midline. CARDIOVASCULAR: S1S2 w/grade II/ murmur, radial & pedal pulses 2+ bilaterally , cap refill < 2 sec, 2+ pedal edema. RESPIRATORY: CTAB w/o W/R/R, equal excursion, nonlaboured, on RA. GASTROINTESTINAL: Abdomen soft, nontender, positive bowel sounds. MUSCULOSKELETAL: Multiple tophi to extremities, splint to distal RUE, no clubbing noted. NEUROLOGICAL: Lethargic, opens eyes to sternal rub briefly then drifts back off. GCS 10 (E2 V2 M6). Patient briefly grunts after waking up but no other verbalisation. Follows simple commands. Weak condenser tester with left hand to command. He withdraws the other extremities to localised noxious stimulation but doesn't open his eyes. (Edu Bailey) Lab, Micro, Other Results Recent Impressions Head Magnetic Resonance Angiography 01/27/17 0000 Signed Impressions: Service Date/Time: Friday, January 27, 2017 10:33 - CONCLUSION: No intracranial vascular abnormality is identified. There is no aneurysm visualized. Angelo Allen MD Lumbar Puncture Fluoroscopy 01/26/17 0000 Signed Impressions: Service Date/Time: Thursday, January 26, 2017 11:57 - CONCLUSION: Uncomplicated fluoroscopically guided lumbar puncture. Angelo Castelan MD Laboratory Tests Test 01/26/17 10:51 01/26/17 12:52 01/26/17 20:20 White Blood Count 13.5 TH/MM3 Red Blood Count 3.94 MIL/MM3 Hemoglobin 10.5 GM/DL Hematocrit 32.8 % Mean Corpuscular Volume 83.2 FL Mean Corpuscular Hemoglobin 26.7 PG Mean Corpuscular Hemoglobin Concent 32.1 % Red Cell Distribution Width 17.6 % Platelet Count 454 TH/MM3 Mean Platelet Volume 7.3 FL Activated Partial Thromboplast Time 34.8 SEC Blood Urea Nitrogen 37 MG/DL Creatinine 2.78 MG/DL Random Glucose 84 MG/DL Calcium Level 8.7 MG/DL Sodium Level 138 MEQ/L Potassium Level 3.9 MEQ/L Chloride Level 106 MEQ/L Carbon Dioxide Level 23.1 MEQ/L Anion Gap 9 MEQ/L Estimat Glomerular Filtration Rate 23 ML/MIN CSF Volume (Tube 1) 2.0 ML CSF Supernatant Color (tube 1) CLEAR CSF Gross Blood (Tube 1) 4+ CSF Volume (Tube 2) 3.5 ML CSF Supernatant Color (tube 2) CLEAR CSF Gross Blood (Tube 2) 4+ CSF Volume (Tube 3) 3.0 ML CSF Supernatant Color (tube 3) CLEAR CSF Gross Blood (Tube 3) 4+ CSF Volume (Tube 4) 2.0 ML CSF Supernatant Color (tube 4) CLEAR CSF Gross Blood (Tube 4) 4+ CSF RBC (Tube 4) /MM3 CSF Neutrophils 77 % CSF Lymphocytes 12 % CSF Monocytes 8 % CSF Eosinophils 3 % CSF Glucose 65 MG/DL CSF Total Protein 949.9 MG/DL (Edu Bailey) Medical Decision Making Impression and Plan Impression: 1. Quadriparesis, etiology remains undetermined. Final CSF/laboratory results pending. 2. Moderate to severe mid to lower lumbar spine stenosis. Patient with decreased mental status this afternoon. Plan: Immunology workup still in progress. Continue present therapy. Anticipate he will eventually require decompression of the lumbar stenosis when otherwise stabilized. (Edu Bailey) Attending Statement The exam, history, and the medical decision-making described in the above note were completed with the assistance of the mid-level provider. I reviewed and agree with the findings presented. I attest that I had a [id number] encounter with the patient on the same day, and personally performed and documented my assessment and findings in the medical record. On my examination today the patient's neurologic status remained stable compared to 01/27/17. Neurology following. Await results of CSF and other studies. Has had some improvement on steroids initially. No definite cauda equina syndrome. However will need to consider surgical decompression of lumbar stenosis. (Cesar Mcfarlane MD) Edu Bailey Jan 28, 2017 15:21 Cesar Mcfarlane MD Jan 28, 2017 16:32
[2017-01-28] MEDS: ATORVASTATIN 10 MG TAB PO SCH (21:38)
[2017-01-29] VITALS (7 sets, daily range): BP systolic 130–139; BP diastolic 69–86; PULSE 57–72; RESP 16–18; TEMP 97–98; O2SAT 96–98
[2017-01-29] MEDS: methylPREDNISolone SOD SUCC 125 MG/2 ML VIAL IV PUSH SCH ×4 (00:46→17:14)
[2017-01-29] MEDS: ACETAMINOPHEN/HYDROcodone 325 MG/7.5 MG TAB PO PRN ×2 (02:35→21:52)
[2017-01-29] MEDS: SODIUM CHLOR 0.45% 1000 ML INJ 1,000 ML IV SCH ×2 (05:14→17:13)
[2017-01-29] MEDS: INSULIN ASPART SUPPLEMENTAL SCALE SQ SCH ×4 (06:22→21:50)
[2017-01-29] MEDS: SODIUM CHLORIDE 0.9% FLUSH 10 ML FLUSH IV FLUSH SCH ×2 (08:27→21:52)
[2017-01-29] MEDS: ATENOLOL 25 MG TAB PO SCH (08:27)
[2017-01-29] MEDS: DOCUSATE SODIUM 50 MG/SENNA 8.6 MG TAB PO SCH ×2 (08:27→21:00)
[2017-01-29] MEDS: amLODIPine BESYLATE 5 MG TAB PO SCH (08:27)
[2017-01-29 08:31] LABS: AUTOMATED NEUTROPHIL # 19.4 TH/MM3 (1.8-7.7); BASOPHIL # 0.1 TH/MM3 (0-0.2); BASOPHIL % 0.4 % (0.0-2.0); HEMATOCRIT 34.4 % (39.0-51.0); LYMPH % 3.6 % (9.0-44.0); LYMPHOCYTE # 0.7 TH/MM3 (1.0-4.8); MEAN CELL VOLUME 84.1 FL (80.0-100.0); MEAN CORPUSCULAR HEMOGLOBIN 26.3 PG (27.0-34.0); MEAN CORPUSCULAR HGB CONC 31.3 % (32.0-36.0); MONO % 0.9 % (0.0-8.0); NEUT % 95.1 % (16.0-70.0); PLATELET COUNT 499 TH/MM3 (150-450); RED BLOOD COUNT 4.09 MIL/MM3 (4.50-5.90); RED CELL DISTRIBUTION WIDTH 17.9 % (11.6-17.2); WHITE BLOOD COUNT 20.4 TH/MM3 (4.0-11.0)
[2017-01-29 08:50] LABS: HEMO FLAGS AUTO DIFF
[2017-01-29 09:01] LABS: BICARBONATE 21.9 MEQ/L (21.0-32.0); POTASSIUM 3.9 MEQ/L (3.5-5.1)
[2017-01-29 10:38] LABS: LYME IGG IMMUNOBLOT CSF None Detected bands (None Detected); LYME IGM IMMUNOBLOT CSF None Detected bands (None Detected)
--- NOTE | 2017-01-29 11:25 | HHI.NSPN ---
History Chief Complaint: Weakness in extremities. Interval History Mr. Kerr is a 61-year-old man with history of osteoarthritis, diabetes mellitus , hypertension and hyperlipidemia,.gout and chronic renal failure who states he has about a 2 or 3 day history of weakness involving his upper and lower extremities, which came on fairly gradually, but has been progressive. He also has chronic back pain. The patient says he fell last week and severe pain was noted in right wrist, resulting in a fracture of the right arm. He did not suffer a head injury. Denies loss of consciousness. Denies seizure activity. Denies incontinence of stool or urine or tongue biting. He denies any double vision or speech changes. He reports chronic kidney disease, in 2004 had multiple kidney stones. She denies significant sensory loss. He denies incontinence of stool or urinary retention. MRI of the lumbar spine show evidence of multilevel spinal stenosis. Neurosurgical consultation was requested 01/25. He continues to report pain and weakness of his upper extremities and bilateral lower extremities. Workup in [facility] 01/27: Patient is somewhat confused this evening. Trying to get out of bed without assistance. 01/28: This afternoon the patient is extremely lethargic and only responses to a sternal rub. He briefly arouses and then drifts back off to sleep. He has soft restraints in place except for the RUE. The patient did receive a dose of lorazepam 1 mg IV at 0344 this morning. He has not received any further benzodiazepines or narcotic pain medication or other sedating drugs. 01/29: Pt much more awake today. Denies headache. Minimal pain. Complains of weakness in extremities. Review of Systems General: Negative for: fever, chills, insomnia Respiratory: Negative for: shortness of breath, cough, sputum Cardiovascular: Negative for: chest pain Gastrointestinal: Negative for: nausea, vomitting, diarrhea, constipation Exam Results Vital Signs Date Time Temp Pulse Resp B/P (MAP) Pulse Ox O2 Delivery O2 Flow Rate FiO2 01/29/17 09:30 65 01/29/17 08:14 97.3 16 139/84 (102) 97 Intake and Output 01/29/17 01/29/17 01/30/17 08:00 16:00 00:00 Intake Total 1240 ml Output Total 300 ml Balance 940 ml Physical Examination Resp: CTA bilaterally Heart: NSR no murmurs Abd: Soft positive bs Skin: No cyanosis or erythema Muscle: Moves all 4 extremities with generalized weakness. Neuro: Pt awake and alert. Follows commands well. Speech clear and appropriate. Follows commands well. Lab, Micro, Other Results Last Impressions Head Magnetic Resonance Angiography 01/27/17 Signed Impressions: Service Date/Time: Friday, January 27, 2017 10:33 - CONCLUSION: No intracranial vascular abnormality is identified. There is no aneurysm visualized. Angelo Allen MD Lumbar Puncture Fluoroscopy 01/26/17 Signed Impressions: Service Date/Time: Thursday, January 26, 2017 11:57 - CONCLUSION: Uncomplicated fluoroscopically guided lumbar puncture. Angelo Castelan MD IVC Filter Placement X-Ray 01/25/17 Signed Impressions: Service Date/Time: January 10:29 - CONCLUSION: Uncomplicated inferior vena cava filter placement as above. Yung Fowler MD Thoracic Spine MRI 01/24/17 Signed Impressions: Service Date/Time: Tuesday, January 24, 2017 22:29 - CONCLUSION: 1. Mild degenerative spondylosis most prominently at T11-L1 with slight effacement of the anterior thecal sac and left lateral recess. No significant neural foraminal stenosis. 2. No acute fracture. Juan Bhakta MD Renal Ultrasound 01/23/17 Signed Impressions: Service Date/Time: Monday, January 23, 2017 08:53 - CONCLUSION: 1. Evidence of chronic parenchymal disease of both kidneys. No obstructive uropathy or other acute abnormality demonstrated. 2. Trace ascites, nonspecific. Angelo Garrido MD Lumbar Spine MRI 01/23/17 0000 Signed Impressions: Service Date/Time: Monday, January 23, 2017 17:01 - CONCLUSION: 1. At L4-5 is a broad-based disc protrusion with severe central canal and lateral recess stenosis and flattening of the exiting right L4 nerve root. 2. L5-S1 there is a disc protrusion and moderate stenosis with flattening of the exiting L5 nerve roots bilaterally. 3. At L3-4 there is a moderate to severe central stenosis and lateral recess stenosis with mild foraminal stenosis. 4. No acute fracture or spondylolisthesis. Trcae Holloway MD Lower Extremity Ultrasound 01/23/17 Signed Impressions: Service Date/Time: Monday, January 23, 2017 09:53 - CONCLUSION: Bilateral focal lower extremity DVT involving the posterior tibial veins. Angelo Garrido MD Cervical Spine MRI 01/23/17 Signed Impressions: Service Date/Time: Monday, January 23, 2017 17:01 - CONCLUSION: 1. Multilevel cervical spine degenerative changes as above. 2. Mild degrees of spinal stenosis at C3/C4-C6/C7. No cord compression or cord signal abnormality. 3. Age indeterminate left paracentral/foraminal disc protrusion at C6/C7. 4. Multilevel foraminal stenosis, most severe on the left at C6/C7. Please see individual levels above. 5. No fracture or subluxation of the cervical spine. Angelo Garrido MD Brain MRI 01/23/17 Signed Impressions: Service Date/Time: Monday, January 23, 2017 17:01 - CONCLUSION: 1. No acute stroke or other acute intracranial abnormality demonstrated. 2. Moderate severity chronic white matter changes, nonspecific but most likely related to chronic small vessel disease. 3. Few scattered tiny lacunar infarcts of the brainstem. 4. Given the findings are not entirely specific, clinical evaluation for possible multiple sclerosis recommended. Angelo Garrido MD Head CT 01/22/172202 Signed Impressions: Service Date/Time: Sunday, January 22, 2017 22:39 - CONCLUSION: Negative noncontrast CT Benjamin Person MD Chest X-Ray 01/22/172202 Signed Impressions: Service Date/Time: Sunday, January 22, 2017 22:18 - CONCLUSION: No acute disease. Benjamin Person MD Wrist X-Ray 01/22/172053 Signed Impressions: Service Date/Time: Sunday, January 22, 2017 21:21 - CONCLUSION: 1. Nondisplaced oblique fracture through the distal ulna. 2. Chronic appearing deformity of the distal ulna as well. 3. Extensive degenerative change and osteopenia. Benjamin Person MD Knee X-Ray 01/22/172053 Signed Impressions: Service Date/Time: Sunday, January 22, 2017 21:17 - CONCLUSION: 1. Evidence of moderate to large joint effusion. 2. No acute fracture or malalignment. 3. Mild 3 compartment osteoarthritic change. Benjamin Person MD Hip and Pelvis X-Ray 01/22/172053 Signed Impressions: Service Date/Time: Sunday, January 22, 2017 21:10 - CONCLUSION: 1. Mild to moderate degenerative change of both hips with no acute fracture or malalignment. There is flattening and remodeling of the right humeral head. Benjamin Person MD Laboratory Tests Test 01/29/17 07:09 White Blood Count 20.4 TH/MM3 Red Blood Count 4.09 MIL/MM3 Hemoglobin 10.8 GM/DL Hematocrit 34.4 % Mean Corpuscular Volume 84.1 FL Mean Corpuscular Hemoglobin 26.3 PG Mean Corpuscular Hemoglobin Concent 31.3 % Red Cell Distribution Width 17.9 % Platelet Count 499 TH/MM3 Mean Platelet Volume 8.2 FL Neutrophils (%) (Auto) 95.1 % Lymphocytes (%) (Auto) 3.6 % Monocytes (%) (Auto) 0.9 % Eosinophils (%) (Auto) 0.0 % Basophils (%) (Auto) 0.4 % Neutrophils # (Auto) 19.4 TH/MM3 Lymphocytes # (Auto) 0.7 TH/MM3 Monocytes # (Auto) 0.2 TH/MM3 Eosinophils # (Auto) 0.0 TH/MM3 Basophils # (Auto) 0.1 TH/MM3 CBC Comment AUTO DIFF Blood Urea Nitrogen 63 MG/DL Creatinine 2.19 MG/DL Random Glucose 371 MG/DL Calcium Level 8.2 MG/DL Sodium Level 139 MEQ/L Potassium Level 3.9 MEQ/L Chloride Level 105 MEQ/L Carbon Dioxide Level 21.9 MEQ/L Anion Gap 12 MEQ/L Estimat Glomerular Filtration Rate 31 ML/MIN Medical Decision Making Impression and Plan A: 1. Quadriparesis, etiology remains undetermined. Final CSF/laboratory results pending. 2. Moderate to severe mid to lower lumbar spine stenosis. Plan: Immunology workup still in progress. Continue present therapy. Dr. Blackwell returns tomorrow to discuss treatment options further. Armando Henley Jan 29, 2017 11:25 am
[2017-01-29 12:00] LABS: BANDS 17 % (0-6); MYELOCYTES 2 % (0-0); NEUTROPHIL # MANUAL DIFF 18.2 TH/MM3 (1.8-7.7); PLATELET ESTIMATE SMEAR HIGH (NORMAL); PLATELET MORPHOLOGY NORMAL (NORMAL); POLYS (SEG NEUTROPHILS) 70 % (16-70); SCAN/DIFF FINAL DIFF MANUAL; WBC DIFF SAMPLE 100
--- NOTE | 2017-01-29 13:06 | HHI.PR ---
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 Patient is doing much better today. Much more alert today. No fever, chills. Objective Vitals Vital Signs Date Time Temp Pulse Resp B/P (MAP) Pulse Ox O2 Delivery O2 Flow Rate FiO2 01/29/17 11:55 97.4 59 16 133/69 (90) 96 01/29/17 09:30 65 01/29/17 08:14 97.3 57 16 139/84 (102) 97 01/29/17 04:46 97.0 61 18 130/72 (91) 97 01/29/17 03:54 18 01/29/17 00:50 97.5 66 18 132/86 (101) 98 01/28/17 20:55 97.2 63 18 140/87 (104) 96 01/28/17 16:00 97.1 63 18 156/61 (92) 95 I/O 01/28/17 01/28/17 01/28/17 01/29/17 01/29/17 01/29/17 06:59 14:59 22:59 06:59 14:59 22:59 Intake Total 240 ml 1200 ml 1240 ml Output Total 350 ml 300 ml Balance -110 ml 1200 ml 940 ml Intake Oral 240 ml 1200 ml 240 ml IV Total 1000 ml Output Urine Total 350 ml 300 ml # Voids 1 # Bowel Movements 1 0 Result Diagram: 01/29/17 0709 01/29/17 0709 Imaging Last Impressions Head Magnetic Resonance Angiography 01/27/17 0000 Signed Impressions: Service Date/Time: Friday, January 27, 2017 10:33 - CONCLUSION: No intracranial vascular abnormality is identified. There is no aneurysm visualized. Angelo Allen MD Lumbar Puncture Fluoroscopy 01/26/17 0000 Signed Impressions: Service Date/Time: Thursday, January 26, 2017 11:57 - CONCLUSION: Uncomplicated fluoroscopically guided lumbar puncture. Angelo Castelan MD IVC Filter Placement X-Ray 01/25/17 0000 Signed Impressions: Service Date/Time: January 10:29 - CONCLUSION: Uncomplicated inferior vena cava filter placement as above. Yung Fowler MD Thoracic Spine MRI 01/24/17 0000 Signed Impressions: Service Date/Time: Tuesday, January 24, 2017 22:29 - CONCLUSION: 1. Mild degenerative spondylosis most prominently at T11-L1 with slight effacement of the anterior thecal sac and left lateral recess. No significant neural foraminal stenosis. 2. No acute fracture. Juan Bhakta MD Renal Ultrasound 01/23/17 Signed Impressions: Service Date/Time: Monday, January 23, 2017 08:53 - CONCLUSION: 1. Evidence of chronic parenchymal disease of both kidneys. No obstructive uropathy or other acute abnormality demonstrated. 2. Trace ascites, nonspecific. Angelo Garrido MD Lumbar Spine MRI 01/23/17 Signed Impressions: Service Date/Time: Monday, January 23, 2017 17:01 - CONCLUSION: 1. At L4-5 is a broad-based disc protrusion with severe central canal and lateral recess stenosis and flattening of the exiting right L4 nerve root. 2. L5-S1 there is a disc protrusion and moderate stenosis with flattening of the exiting L5 nerve roots bilaterally. 3. At L3-4 there is a moderate to severe central stenosis and lateral recess stenosis with mild foraminal stenosis. 4. No acute fracture or spondylolisthesis. Trace Holloway MD Lower Extremity Ultrasound 01/23/17 Signed Impressions: Service Date/Time: Monday, January 23, 2017 09:53 - CONCLUSION: Bilateral focal lower extremity DVT involving the posterior tibial veins. Angelo Garrido MD Cervical Spine MRI 01/23/17 Signed Impressions: Service Date/Time: Monday, January 23, 2017 17:01 - CONCLUSION: 1. Multilevel cervical spine degenerative changes as above. 2. Mild degrees of spinal stenosis at C3/C4-C6/C7. No cord compression or cord signal abnormality. 3. Age indeterminate left paracentral/foraminal disc protrusion at C6/C7. 4. Multilevel foraminal stenosis, most severe on the left at C6/C7. Please see individual levels above. 5. No fracture or subluxation of the cervical spine. Angelo Garrido MD Brain MRI 01/23/17 Signed Impressions: Service Date/Time: Monday, January 23, 2017 17:01 - CONCLUSION: 1. No acute stroke or other acute intracranial abnormality demonstrated. 2. Moderate severity chronic white matter changes, nonspecific but most likely related to chronic small vessel disease. 3. Few scattered tiny lacunar infarcts of the brainstem. 4. Given the findings are not entirely specific, clinical evaluation for possible multiple sclerosis recommended. Angelo Garrido MD Head CT 01/22/172202 Signed Impressions: Service Date/Time: Sunday, January 22, 2017 22:39 - CONCLUSION: Negative noncontrast CT Benjamin Person MD Chest X-Ray 01/22/172202 Signed Impressions: Service Date/Time: Sunday, January 22, 2017 22:18 - CONCLUSION: No acute disease. Benjamin Person MD Wrist X-Ray 01/22/172053 Signed Impressions: Service Date/Time: Sunday, January 22, 2017 21:21 - CONCLUSION: 1. Nondisplaced oblique fracture through the distal ulna. 2. Chronic appearing deformity of the distal ulna as well. 3. Extensive degenerative change and osteopenia. Benjamin Person MD Knee X-Ray 01/22/172053 Signed Impressions: Service Date/Time: Sunday, January 22, 2017 21:17 - CONCLUSION: 1. Evidence of moderate to large joint effusion. 2. No acute fracture or malalignment. 3. Mild 3 compartment osteoarthritic change. Benjamin Person MD Hip and Pelvis X-Ray 01/22/172053 Signed Impressions: Service Date/Time: Sunday, January 22, 2017 21:10 - CONCLUSION: 1. Mild to moderate degenerative change of both hips with no acute fracture or malalignment. There is flattening and remodeling of the right humeral head. Benjamin Person MD Objective Remarks GENERAL: Alert, NAD. SKIN: Warm and dry. HEAD: Normocephalic. EYES: No scleral icterus. No injection or drainage. NECK: Supple, trachea midline. No JVD or lymphadenopathy. CARDIOVASCULAR: Regular rate and rhythm without murmurs, gallops, or rubs. RESPIRATORY: Breath sounds equal bilaterally. No accessory muscle use. GASTROINTESTINAL: Abdomen soft, non-tender, nondistended. MUSCULOSKELETAL: No cyanosis, or edema. 3/5 lower ext strength, 4/5 upper ext. BACK: Nontender without obvious deformity. No CVA tenderness. Procedures IVC filter placement 01/25/2017 LP 01/26/2017 A/P Problem List: (1) Distal end of ulna fracture, closed ICD Code: S52.609A - Unspecified fracture of lower end of unspecified ulna, initial encounter for closed fracture (2) Diabetes mellitus ICD Code: E11.9 - Type 2 diabetes mellitus without complications Assessment and Plan 61-year-old male with history of diabetes mellitus, gouty arthritis, COPD secondary to recurrent nephrolithiasis per the patient, presents with multiple complaints including bilateral lower extremity weakness, falls, right arm pain. Right Distal Ulna Oblique Fracture: RUE xray images reviewed. - consulted ortho, nonsurgical, recommends continuing splint, plan to transition to cast as outpatient - Continue norco prn and IV Dilaudid prn breakthrough pain Concern for septic arthritis: patient met sepsis criteria with leukocytosis WBC 19.3K, tachycardia HR 132, however afebrile, lactic acid 1.6. Patient has also been on recent steroids as outpatient. WBC 15.8 on 01/24/2017 - elevations in CRP - 31 and ESR - 22 - initially given antibiotics however evaluation by ortho, not concerned for septic joint, will d/c antibiotics and cancel ID consult Acute Renal Failure on CKD stage 3-4: no previous labs to compare. - No prior labs available for comparison - continue on IVF, renal function slowly improving. Creatinine 3.7 --> 2.78. - avoid nephrotoxins - Renal U/S showed evidence of chronic parenchymal disease both kidneys; no obstructive uropathy - consulted nephrology, appreciate assistance Severe Lumbar Spine Stenosis with Significant Lower Extremity Weakness and Recurrent Falls: progressive over the past few months, failed outpatient physical therapy and acupuncture - C-spine MRI showed Multilevel cervical spine degenerative changes; Mild degrees of spinal stenosis at C3/C4-C6/C7; No cord compression or cord signal abnormality; Age indeterminate left paracentral/foraminal disc protrusion at C6/ C7; Multilevel foraminal stenosis, most severe on the left at C6/C7; No fracture or subluxation of the cervical spine. - L-spine MRI showed L4-5 broad-based disc protrusion with severe central canal and lateral recess stenosis and flattening of the exiting right L4 nerve root; L5-S1 there is a disc protrusion and moderate stenosis with flattening of the exiting L5 nerve roots bilaterally; At L3-4 there is a moderate to severe central stenosis and lateral recess stenosis with mild foraminal stenosis; No acute fracture or spondylolisthesis. - Brain MRI showed No acute stroke or other acute intracranial abnormality demonstrated; Moderate severity chronic white matter changes, nonspecific but most likely related to chronic small vessel disease; Few scattered tiny lacunar infarcts of the brainstem; Given the findings are not entirely specific, clinical evaluation for possible multiple sclerosis recommended. - Vit B12, folate, TSH, ammonia all wnl, RPR negative - Consult PT, recommending rehab, patient unable to ambulate - Neurology and Neurosurgery following. Discussed with Neurosurgery on 2016. Neurosurgery is going to wait for a work up being done by neurology to rule out Guillain Caney syndrome or some other demyelinating disease. - Continue high dose Solu-medrol 250mg Q6hrs X total 5 days. Bilateral DVT: patient complains of BLE edema and both legs feel "full" and "heavy" - Doppler U/S positive for bilateral DVT, started on Heparin drip - Patient underwent IVC filter placement on 01/25/2017 Type 2 Diabetes Mellitus:Patient takes glipizide at home. - Continue Accu-Cheks before meals and at bedtime with low-dose NovoLog sliding scale coverage - HgbA1c 8.5 - Consult time clock inspector and sticker operator - Acute hyperglycemia due to steroid. We will start patient on Levemir 10 units QHS, continue sliding scale insulin and pre-meal insulin with aspart. Full code. Kathryn Chairez DO Jan 29, 2017 1:06 pm
[2017-01-29 13:11] LABS: CSF CRYPTOCOCCUS AG CONF ND (NOT DETECTD)
[2017-01-29] MEDS: INSULIN ASPART 1,000 UNITS/10 ML VIAL SQ SCH (17:00)
--- NOTE | 2017-01-29 18:12 | HHI.NPPN ---
Subjective History of Present Illness 61-year-old with history of urinary stone Additional Remarks has neurological work up Review of Systems General Constitutional: Fatigue Objective Data Data 01/29/17 01/30/17 19:00 07:00 # Voids 2 Vital Signs Date Time Temp Pulse Resp B/P (MAP) Pulse Ox O2 Delivery O2 Flow Rate FiO2 01/29/17 17:07 98.0 61 16 134/75 (94) 97 01/29/17 11:55 97.4 59 16 133/69 (90) 96 01/29/17 09:30 65 01/29/17 08:14 97.3 57 16 139/84 (102) 97 01/29/17 04:46 97.0 61 18 130/72 (91) 97 01/29/17 03:54 18 01/29/17 00:50 97.5 66 18 132/86 (101) 98 01/28/17 20:55 97.2 63 18 140/87 (104) 96 -: 01/29/17 0709 01/29/17 0709 Physical Exam General Appearance: Well Developed Neck Neck Exam: Neck Supple Pulmonary Resp Exam: Clear Bilaterally, Breath Sounds Equal Cardiology CV Exam: Regular, Normal Sinus Rhythm Gastrointestinal/Abdomen GI Exam: Soft, Non-Tender, Bowel Sounds Present Extremeties Extremities Exam: No Edema Neurologic Neuro Exam: Alert, Moving All Extremities Assessment/Plan Problem List: (1) Acute renal failure ICD Codes: N17.9 - Acute kidney failure, unspecified Plan: Continue to observe RIOS/SPEP neg CR Declined fu BMP cr 2.7 on soluMedrol for demyelinization LP traumatic DVT IVC filter (2) CKD (chronic kidney disease) stage 3, GFR 30-59 ml/min ICD Codes: N18.3 - Chronic kidney disease, stage 3 (moderate) Plan: Ultrasound revealed chronic kidney disease there is no kidney stones (3) Diabetes ICD Codes: E11.9 - Type 2 diabetes mellitus without complications Plan: Continue to monitor (4) Distal end of ulna fracture, closed ICD Codes: S52.609A - Unspecified fracture of lower end of unspecified ulna, initial encounter for closed fracture Plan: Orthopedic is following Problem Qualifiers (1) Acute renal failure: Qualified Codes: N17.9 - Acute kidney failure, unspecified Laura Liao MD Jan 29, 2017 18:12
[2017-01-29] MEDS: ATORVASTATIN 10 MG TAB PO SCH (21:51)
[2017-01-29] MEDS: INSULIN DETEMIR 100 UNITS/ML VIAL SQ SCH (21:51)
[2017-01-30] VITALS (9 sets, daily range): BP systolic 112–161; BP diastolic 63–87; PULSE 54–86; RESP 16–20; TEMP 97–98; O2SAT 96–98
[2017-01-30] MEDS: methylPREDNISolone SOD SUCC 125 MG/2 ML VIAL IV PUSH SCH ×5 (00:51→23:38)
[2017-01-30] MEDS: SODIUM CHLOR 0.45% 1000 ML INJ 1,000 ML IV SCH ×2 (05:31→21:53)
[2017-01-30] MEDS: INSULIN DETEMIR 100 UNITS/ML VIAL SQ SCH (06:19)
[2017-01-30] MEDS: INSULIN ASPART SUPPLEMENTAL SCALE SQ SCH ×4 (06:20→21:53)
[2017-01-30] MEDS: INSULIN ASPART 1,000 UNITS/10 ML VIAL SQ SCH ×3 (08:27→17:13)
[2017-01-30] MEDS: SODIUM CHLORIDE 0.9% FLUSH 10 ML FLUSH IV FLUSH SCH ×2 (08:29→21:49)
[2017-01-30] MEDS: DOCUSATE SODIUM 50 MG/SENNA 8.6 MG TAB PO SCH ×2 (08:30→21:48)
[2017-01-30] MEDS: amLODIPine BESYLATE 5 MG TAB PO SCH (08:30)
[2017-01-30] MEDS: ATENOLOL 25 MG TAB PO SCH (08:30)
--- NOTE | 2017-01-30 13:04 | HHI.PR ---
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 Patient is currently doing well. He is about to work with PT today. No fever or chills. Objective Vitals Vital Signs Date Time Temp Pulse Resp B/P (MAP) Pulse Ox O2 Delivery O2 Flow Rate FiO2 01/30/17 08:03 54 01/30/17 07:58 97.2 55 20 161/84 (109) 97 01/30/17 04:00 97.0 60 18 157/80 (105) 97 01/30/17 00:40 97.0 86 18 112/63 (79) 96 01/29/17 22:58 18 01/29/17 22:05 72 01/29/17 17:07 98.0 61 16 134/75 (94) 97 I/O 01/29/17 01/29/17 01/29/17 01/30/17 01/30/17 01/30/17 07:00 15:00 23:00 07:00 15:00 23:00 Intake Total 1240 ml 310 ml 1440 ml 129 ml Output Total 300 ml 600 ml 1100 ml Balance 940 ml -290 ml 340 ml 129 ml Intake Oral 240 ml 240 ml IV Total 1000 ml 310 ml 1200 ml 129 ml Output Urine Total 300 ml 600 ml 1100 ml # Voids 4 # Bowel Movements 0 Result Diagram: 01/29/17 0709 01/29/17 0709 Imaging Last Impressions Head Magnetic Resonance Angiography 01/27/17 0000 Signed Impressions: Service Date/Time: Friday, January 27, 2017 10:33 - CONCLUSION: No intracranial vascular abnormality is identified. There is no aneurysm visualized. Angelo Allen MD Lumbar Puncture Fluoroscopy 01/26/17 0000 Signed Impressions: Service Date/Time: Thursday, January 26, 2017 11:57 - CONCLUSION: Uncomplicated fluoroscopically guided lumbar puncture. Angelo Castelan MD IVC Filter Placement X-Ray 01/25/17 0000 Signed Impressions: Service Date/Time: January 10:29 - CONCLUSION: Uncomplicated inferior vena cava filter placement as above. Yung Fowler MD Thoracic Spine MRI 01/24/17 0000 Signed Impressions: Service Date/Time: Tuesday, January 24, 2017 22:29 - CONCLUSION: 1. Mild degenerative spondylosis most prominently at T11-L1 with slight effacement of the anterior thecal sac and left lateral recess. No significant neural foraminal stenosis. 2. No acute fracture. Juan Bhakta MD Renal Ultrasound 01/23/17 Signed Impressions: Service Date/Time: Monday, January 23, 2017 08:53 - CONCLUSION: 1. Evidence of chronic parenchymal disease of both kidneys. No obstructive uropathy or other acute abnormality demonstrated. 2. Trace ascites, nonspecific. Angelo Garrido MD Lumbar Spine MRI 01/23/17 Signed Impressions: Service Date/Time: Monday, January 23, 2017 17:01 - CONCLUSION: 1. At L4-5 is a broad-based disc protrusion with severe central canal and lateral recess stenosis and flattening of the exiting right L4 nerve root. 2. L5-S1 there is a disc protrusion and moderate stenosis with flattening of the exiting L5 nerve roots bilaterally. 3. At L3-4 there is a moderate to severe central stenosis and lateral recess stenosis with mild foraminal stenosis. 4. No acute fracture or spondylolisthesis. Trace Holloway MD Lower Extremity Ultrasound 01/23/17 Signed Impressions: Service Date/Time: Monday, January 23, 2017 09:53 - CONCLUSION: Bilateral focal lower extremity DVT involving the posterior tibial veins. Angelo Garrido MD Cervical Spine MRI 01/23/17 Signed Impressions: Service Date/Time: Monday, January 23, 2017 17:01 - CONCLUSION: 1. Multilevel cervical spine degenerative changes as above. 2. Mild degrees of spinal stenosis at C3/C4-C6/C7. No cord compression or cord signal abnormality. 3. Age indeterminate left paracentral/foraminal disc protrusion at C6/C7. 4. Multilevel foraminal stenosis, most severe on the left at C6/C7. Please see individual levels above. 5. No fracture or subluxation of the cervical spine. Angelo Garrido MD Brain MRI 01/23/17 Signed Impressions: Service Date/Time: Monday, January 23, 2017 17:01 - CONCLUSION: 1. No acute stroke or other acute intracranial abnormality demonstrated. 2. Moderate severity chronic white matter changes, nonspecific but most likely related to chronic small vessel disease. 3. Few scattered tiny lacunar infarcts of the brainstem. 4. Given the findings are not entirely specific, clinical evaluation for possible multiple sclerosis recommended. Angelo Garrido MD Head CT 01/22/172202 Signed Impressions: Service Date/Time: Sunday, January 22, 2017 22:39 - CONCLUSION: Negative noncontrast CT Benjamin Person MD Chest X-Ray 01/22/172202 Signed Impressions: Service Date/Time: Sunday, January 22, 2017 22:18 - CONCLUSION: No acute disease. Benjamin Person MD Wrist X-Ray 01/22/172053 Signed Impressions: Service Date/Time: Sunday, January 22, 2017 21:21 - CONCLUSION: 1. Nondisplaced oblique fracture through the distal ulna. 2. Chronic appearing deformity of the distal ulna as well. 3. Extensive degenerative change and osteopenia. Benjamin Person MD Knee X-Ray 01/22/172053 Signed Impressions: Service Date/Time: Sunday, January 22, 2017 21:17 - CONCLUSION: 1. Evidence of moderate to large joint effusion. 2. No acute fracture or malalignment. 3. Mild 3 compartment osteoarthritic change. Benjamin Person MD Hip and Pelvis X-Ray 01/22/172053 Signed Impressions: Service Date/Time: Sunday, January 22, 2017 21:10 - CONCLUSION: 1. Mild to moderate degenerative change of both hips with no acute fracture or malalignment. There is flattening and remodeling of the right humeral head. Benjamin Person MD Objective Remarks GENERAL: Alert, NAD. SKIN: Warm and dry. HEAD: Normocephalic. EYES: No scleral icterus. No injection or drainage. NECK: Supple, trachea midline. No JVD or lymphadenopathy. CARDIOVASCULAR: Regular rate and rhythm without murmurs, gallops, or rubs. RESPIRATORY: Breath sounds equal bilaterally. No accessory muscle use. GASTROINTESTINAL: Abdomen soft, non-tender, nondistended. MUSCULOSKELETAL: No cyanosis, or edema. 3/5 lower ext strength, 4/5 upper ext. BACK: Nontender without obvious deformity. No CVA tenderness. Procedures IVC filter placement 01/25/2017 LP 01/26/2017 A/P Problem List: (1) Distal end of ulna fracture, closed ICD Code: S52.609A - Unspecified fracture of lower end of unspecified ulna, initial encounter for closed fracture (2) Diabetes mellitus ICD Code: E11.9 - Type 2 diabetes mellitus without complications Assessment and Plan 61-year-old male with history of diabetes mellitus, gouty arthritis, COPD secondary to recurrent nephrolithiasis per the patient, presents with multiple complaints including bilateral lower extremity weakness, falls, right arm pain. Right Distal Ulna Oblique Fracture: RUE xray images reviewed. - consulted ortho, nonsurgical, recommends continuing splint, plan to transition to cast as outpatient - Continue norco prn and IV Dilaudid prn breakthrough pain Concern for septic arthritis: patient met sepsis criteria with leukocytosis WBC 19.3K, tachycardia HR 132, however afebrile, lactic acid 1.6. Patient has also been on recent steroids as outpatient. WBC 15.8 on 01/24/2017 - elevations in CRP - 31 and ESR - 22 - initially given antibiotics however evaluation by ortho, not concerned for septic joint, will d/c antibiotics and cancel ID consult Acute Renal Failure on CKD stage 3-4: no previous labs to compare. - No prior labs available for comparison - continue on IVF, renal function slowly improving. Creatinine 3.7 --> 2.78. - avoid nephrotoxins - Renal U/S showed evidence of chronic parenchymal disease both kidneys; no obstructive uropathy - consulted nephrology, appreciate assistance Severe Lumbar Spine Stenosis with Significant Lower Extremity Weakness and Recurrent Falls: progressive over the past few months, failed outpatient physical therapy and acupuncture - C-spine MRI showed Multilevel cervical spine degenerative changes; Mild degrees of spinal stenosis at C3/C4-C6/C7; No cord compression or cord signal abnormality; Age indeterminate left paracentral/foraminal disc protrusion at C6/ C7; Multilevel foraminal stenosis, most severe on the left at C6/C7; No fracture or subluxation of the cervical spine. - L-spine MRI showed L4-5 broad-based disc protrusion with severe central canal and lateral recess stenosis and flattening of the exiting right L4 nerve root; L5-S1 there is a disc protrusion and moderate stenosis with flattening of the exiting L5 nerve roots bilaterally; At L3-4 there is a moderate to severe central stenosis and lateral recess stenosis with mild foraminal stenosis; No acute fracture or spondylolisthesis. - Brain MRI showed No acute stroke or other acute intracranial abnormality demonstrated; Moderate severity chronic white matter changes, nonspecific but most likely related to chronic small vessel disease; Few scattered tiny lacunar infarcts of the brainstem; Given the findings are not entirely specific, clinical evaluation for possible multiple sclerosis recommended. - Vit B12, folate, TSH, ammonia all wnl, RPR negative - Consult PT, recommending rehab, patient unable to ambulate - Neurology and Neurosurgery following. Discussed with Neurosurgery on 2016. Neurosurgery is going to wait for a work up being done by neurology to rule out Guillain [place] syndrome or some other demyelinating disease. - Continue high dose Solu-medrol 250mg Q6hrs X total 5 days - will be completed on 01/31/2017. Bilateral DVT: patient complains of BLE edema and both legs feel "full" and "heavy" - Doppler U/S positive for bilateral DVT, started on Heparin drip - Patient underwent IVC filter placement on 01/25/2017 Type 2 Diabetes Mellitus:Patient takes glipizide at home. 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 Continue Levemir 10 units QHS, continue sliding scale insulin and pre-meal insulin with aspart. - Increase pre-meal insulin aspart 8 units 3 times a day before meals. - After high-dose steroid is completed tomorrow 01/31/2017, patient may need adjustment of his insulin regimen. Full code. Heparin subcutaneous Kathryn Chairez DO Jan 30, 2017 13:04
--- NOTE | 2017-01-30 14:56 | HHI.NPPN ---
Subjective History of Present Illness 61-year-old with history of urinary stone Review of Systems General Constitutional: Fatigue Objective Data Data 01/30/17 01/31/17 19:00 07:00 Intake Total 129 ml Balance 129 ml IV Total 129 ml Vital Signs Date Time Temp Pulse Resp B/P (MAP) Pulse Ox O2 Delivery O2 Flow Rate FiO2 01/30/17 13:04 97.7 60 20 144/87 (106) 98 01/30/17 08:03 54 01/30/17 07:58 97.2 55 20 161/84 (109) 97 01/30/17 04:00 97.0 60 18 157/80 (105) 97 01/30/17 00:40 97.0 86 18 112/63 (79) 96 01/29/17 22:58 18 01/29/17 22:05 72 01/29/17 17:07 98.0 61 16 134/75 (94) 97 -: 01/29/17 0709 01/29/17 0709 Physical Exam General Appearance: Well Developed Neck Neck Exam: Neck Supple Pulmonary Resp Exam: Clear Bilaterally, Breath Sounds Equal Cardiology CV Exam: Regular, Normal Sinus Rhythm Gastrointestinal/Abdomen GI Exam: Soft, Non-Tender, Bowel Sounds Present Extremeties Extremities Exam: No Edema Neurologic Neuro Exam: Alert, Moving All Extremities Assessment/Plan Problem List: (1) Acute renal failure ICD Codes: N17.9 - Acute kidney failure, unspecified Plan: Continue to observe RIOS/SPEP neg CR Declined fu BMP cr 2.1 on soluMedrol for demyelinization LP traumatic DVT IVC filter (2) CKD (chronic kidney disease) stage 3, GFR 30-59 ml/min ICD Codes: N18.3 - Chronic kidney disease, stage 3 (moderate) Plan: Ultrasound revealed chronic kidney disease there is no kidney stones (3) Diabetes ICD Codes: E11.9 - Type 2 diabetes mellitus without complications Plan: Continue to monitor (4) Distal end of ulna fracture, closed ICD Codes: S52.609A - Unspecified fracture of lower end of unspecified ulna, initial encounter for closed fracture Plan: Orthopedic is following Problem Qualifiers (1) Acute renal failure: Qualified Codes: N17.9 - Acute kidney failure, unspecified Laura Liao MD Jan 30, 2017 14:56
--- NOTE | 2017-01-30 16:12 | HHI.PR ---
Review/Management Diagnosis Blood in CSF--? subarachnoid hemorrhage vs other etiology. vs traumatic tap possible transverse myelitis , ? MS (MRI brain is suggestive) severe lumbar stenosis Plan follow up csf igg index, myelin basic protein and oligoclonal bands. If inconclusinve consider repeat LP Diagnosis/Plan: Subjective Subjective Comments States strength in upper and lower extremities much improved after steroids. ABle to stand better with PT Active Medications Current Medications Medications (Trade) Dose Ordered Sig/Rosalia Route Start Time Stop Time Status Last Admin (NS Flush) 2 ml UNSCH PRN IV FLUSH 01/23/17 00:30 01/27/17 04:53 (NS Flush) 2 ml BID IV FLUSH 01/23/17 09:00 01/30/17 08:29 (Tylenol) 650 mg Q4H PRN PO 01/23/17 00:30 (Zofran Inj) 4 mg Q6H PRN IVP 01/23/17 00:30 ([place] 5-325 Mg) 1 tab Q4H PRN PO 01/23/17 00:30 01/23/17 19:39 ([place] 7.5-325 Mg) 1 tab Q4H PRN PO 01/23/17 00:30 01/29/17 21:52 (Narcan Inj) 0.4 mg UNSCH PRN IV 01/23/17 00:30 ([place]na-Colace) 1 tab BID PO 01/23/17 09:00 01/30/17 08:30 (Milk Of Magnesia Liq) 30 ml Q12H PRN PO 01/23/17 00:30 (Senokot) 17.2 mg Q12H PRN PO 01/23/17 00:30 (Dulcolax Supp) 10 mg DAILY PRN RECTAL 01/23/17 00:30 (D50w (Vial) Inj) 50 ml UNSCH PRN IV 01/23/17 07:45 (Glucagon Inj) 1 mg UNSCH PRN OTHER 01/23/17 07:45 (NovoLOG SUPPLEMENTAL SCALE) 1 ACHS SLIDING SCALE SQ 01/23/17 11:00 01/30/17 11:31 Sodium Chloride 1,000 ml @ 84 mls/hr [id number] IV 01/23/17 18:30 01/30/17 05:31 (Tenormin) 25 mg DAILY PO 01/24/17 13:00 01/30/17 08:30 (Lipitor) 10 mg HS PO 01/24/17 21:00 01/29/17 21:51 (Catapres) 0.1 mg Q6H PRN PO 01/24/17 18:00 01/28/17 12:34 (Dilaudid Pf Inj) 0.5 mg Q4H PRN IV PUSH 01/26/17 15:00 01/27/17 00:01 (SoluMEDROL INJ) 250 mg Q6HR IV PUSH 01/27/17 00:00 01/30/17 11:32 (Norvasc) 5 mg DAILY PO 01/28/17 09:00 01/30/17 08:30 (Levemir Inj) 10 units HS SQ 01/29/17 21:00 01/30/17 06:19 (NovoLOG INJ) 8 units TIDAC SQ 01/30/17 12:00 01/30/17 12:34 (Heparin Inj) 5,000 units Q12HR SQ 01/30/17 21:00 Allergies Allergies Coded Allergies levofloxacin (Verified Allergy, Severe, 01/22/17) Exam I&O / VS 01/30/17 01/30/17 01/31/17 15:00 23:00 07:00 Intake Total 129 ml 720 ml Output Total 675 ml Balance 129 ml 45 ml Intake Oral 720 ml IV Total 129 ml Output Urine Total 675 ml Vital Signs Date Time Temp Pulse Resp B/P (MAP) Pulse Ox O2 Delivery O2 Flow Rate FiO2 01/30/17 15:51 98.0 59 20 130/72 (91) 98 01/30/17 13:04 97.7 60 20 144/87 (106) 98 01/30/17 08:03 54 01/30/17 07:58 97.2 55 20 161/84 (109) 97 01/30/17 04:00 97.0 60 18 157/80 (105) 97 01/30/17 00:40 97.0 86 18 112/63 (79) 96 01/29/17 22:58 18 01/29/17 22:05 72 01/29/17 17:07 98.0 61 16 134/75 (94) 97 Exam Comments alert, speech normal CN intact MOTOR 5/5 BUE, 5/5 bilateral iliopsoas, 5/5 bilateral quadricep and hamstring and tibialis anterior Arreflexic BUE and BLE Objective Micro and Labs Date/Time Source Procedure Growth Status 01/22/17 21:05 Blood Peripheral Aerobic Blood Culture - Final NO GROWTH IN 5 DAYS Complete 01/22/17 21:05 Blood Peripheral Anaerobic Blood Culture - Final NO GROWTH IN 5 DAYS Complete 01/26/17 12:52 Cerebral Spinal Fluid Lumbar Puncture Fungal Smear - Final NO FUNGAL ELEMENTS SEEN. Resulted 01/26/17 12:52 Cerebral Spinal Fluid Lumbar Puncture Fungal Culture Pending Resulted Chirag Crenshaw PhD Jan 30, 2017 16:12
--- NOTE | 2017-01-30 17:36 | HHI.NSPN ---
(Megha Ha) Note Status Status: Progress Note (eMgha Ha) Interval History Interval History Mr. Kerr is a 61-year-old man with history of osteoarthritis, diabetes mellitus , hypertension and hyperlipidemia,.gout and chronic renal failure who states he has about a 2 or 3 day history of weakness involving his upper and lower extremities, which came on fairly gradually, but has been progressive. He also has chronic back pain. The patient says he fell last week and severe pain was noted in right wrist, resulting in a fracture of the right arm. He did not suffer a head injury. Denies loss of consciousness. Denies seizure activity. Denies incontinence of stool or urine or tongue biting. He denies any double vision or speech changes. He reports chronic kidney disease, in 2004 had multiple kidney stones. She denies significant sensory loss. He denies incontinence of stool or urinary retention. MRI of the lumbar spine show evidence of multilevel spinal stenosis. Neurosurgical consultation was requested 01/25. He continues to report pain and weakness of his upper extremities and bilateral lower extremities. Workup in porogress 01/27: Patient is somewhat confused this evening. Trying to get out of bed without assistance. 01/28: This afternoon the patient is extremely lethargic and only responses to a sternal rub. He briefly arouses and then drifts back off to sleep. He has soft restraints in place except for the RUE. The patient did receive a dose of lorazepam 1 mg IV at 0344 this morning. He has not received any further benzodiazepines or narcotic pain medication or other sedating drugs. 01/29: Pt much more awake today. Denies headache. Minimal pain. Complains of weakness in extremities. 01/30: reports increased movements in lower extremities with solumedrol. (Megha Ha) Labs, Micro, & Vital Signs Results Date Time Temp Pulse Resp B/P (MAP) Pulse Ox O2 Delivery O2 Flow Rate FiO2 01/30/17 15:51 98.0 59 20 130/72 (91) 98 01/30/17 13:04 97.7 60 20 144/87 (106) 98 01/30/17 08:03 54 01/30/17 07:58 97.2 55 20 161/84 (109) 97 01/30/17 04:00 97.0 60 18 157/80 (105) 97 01/30/17 00:40 97.0 86 18 112/63 (79) 96 01/29/17 22:58 18 01/29/17 22:05 72 01/31/17 06:59 Intake Total 849 ml Output Total 675 ml Balance 174 ml Constitutional Vital Signs Date Time Temp Pulse Resp B/P (MAP) Pulse Ox O2 Delivery O2 Flow Rate FiO2 01/30/17 15:51 98.0 59 20 130/72 (91) 98 01/30/17 13:04 97.7 60 20 144/87 (106) 98 01/30/17 08:03 54 01/30/17 07:58 97.2 55 20 161/84 (109) 97 01/30/17 04:00 97.0 60 18 157/80 (105) 97 01/30/17 00:40 97.0 86 18 112/63 (79) 96 01/29/17 22:58 18 01/29/17 22:05 72 01/31/17 06:59 Intake Total 849 ml Output Total 675 ml Balance 174 ml (Megha Ha) Review of Systems Constitutional: DENIES: Fever Neurologic: COMPLAINS OF: Abnormal gait, Localized weakness, Paresthesias (Megha Ha) Physical Exam Resp: CTA bilaterally Heart: NSR no murmurs Abd: Soft positive bs Skin: No cyanosis or erythema Muscle: Moves all 4 extremities with 4/5 generalized weakness Neuro: Pt awake and alert. Follows commands well. Speech clear and appropriate. Follows commands well. (Megha Ha) Medications Current Medications Current Medications Medications (Trade) Dose Ordered Sig/Rosalia Route PRN Reason Start Time Stop Time Status Last Admin Dose Admin Sodium Chloride (NS Flush) 2 ml UNSCH PRN IV FLUSH FLUSH AFTER USING IV ACCESS 01/23/17 00:30 01/27/17 04:53 Sodium Chloride (NS Flush) 2 ml BID IV FLUSH 01/23/17 09:00 01/30/17 08:29 Acetaminophen (Tylenol) 650 mg Q4H PRN PO TEMP > 100.4 01/23/17 00:30 Ondansetron HCl (Zofran Inj) 4 mg Q6H PRN IVP NAUSEA OR VOMITING 01/23/17 00:30 Acetaminophen/ Hydrocodone Bitart ([place] 5-325 Mg) 1 tab Q4H PRN PO PAIN SCALE 3 TO 5 01/23/17 00:30 01/23/17 19:39 Acetaminophen/ Hydrocodone Bitart ([place] 7.5-325 Mg) 1 tab Q4H PRN PO PAIN SCALE 6 TO 10 01/23/17 00:30 01/29/17 21:52 Naloxone HCl (Narcan Inj) 0.4 mg UNSCH PRN IV SEE LABEL COMMENTS 01/23/17 00:30 Senna/Docusate Sodium ([place]-Colace) 1 tab BID PO 01/23/17 09:00 01/30/17 08:30 Magnesium Hydroxide (Milk Of Magnestephania Liq) 30 ml Q12H PRN PO MILD - MODERATE CONSTIPATION 01/23/17 00:30 Sennosides (Senokot) 17.2 mg Q12H PRN PO MODERATE - SEVERE CONSTIPATION 01/23/17 00:30 Bisacodyl (Dulcolax Supp) 10 mg DAILY PRN RECTAL SEVERE CONSITIPATION 01/23/17 00:30 Dextrose (D50w (Vial) Inj) 50 ml UNSCH PRN IV HYPOGLYCEMIA-SEE COMMENTS 01/23/17 07:45 Glucagon (Glucagon Inj) 1 mg UNSCH PRN OTHER HYPOGLYCEMIA-SEE COMMENTS 01/23/17 07:45 Insulin Aspart (NovoLOG SUPPLEMENTAL SCALE) 1 ACHS SLIDING SCALE SQ 01/23/17 11:00 01/30/17 17:12 Sodium Chloride 1,000 ml @ 84 mls/hr [id number] IV 01/23/17 18:30 01/30/17 05:31 Atenolol (Tenormin) 25 mg DAILY PO 01/24/17 13:00 01/30/17 08:30 Atorvastatin Calcium (Lipitor) 10 mg HS PO 01/24/17 21:00 01/29/17 21:51 Clonidine (Catapres) 0.1 mg Q6H PRN PO SBP> OR = 180, DBP> OR = 100 01/24/17 18:00 01/28/17 12:34 Hydromorphone HCl (Dilaudid Pf Inj) 0.5 mg Q4H PRN IV PUSH BREAKTHROUGH PAIN 01/26/17 15:00 01/27/17 00:01 Methylprednisolone Sodium Succinate (SoluMEDROL INJ) 250 mg Q6HR IV PUSH 01/27/17 00:00 01/30/17 17:16 Amlodipine Besylate (Norvasc) 5 mg DAILY PO 01/28/17 09:00 01/30/17 08:30 Insulin Detemir (Levemir Inj) 10 units HS SQ 01/29/17 21:00 01/30/17 06:19 Insulin Aspart (NovoLOG INJ) 8 units TIDAC SQ 01/30/17 12:00 01/30/17 17:13 Heparin Sodium (Porcine) (Heparin Inj) 5,000 units Q12HR SQ 01/30/17 21:00 (Megha Ha) Medical Decision Making MDM Remarks 61 y/o male with quadriparesis, unknown etiology no cord compression on MRI cervical and thoracic spine, MRI L spine with spondylosis with canal stenosis (Megha Ha) Plan Plan Remarks cont nonsurgical mgt of lumbar stenosis, cont mgt per Neurology cont therapy and rehab pain management for lumbar stenosis will sign off, call prn (Megha Ha) Attending Statement The exam, history, and the medical decision-making described in the above note were completed with the assistance of the mid-level provider. I reviewed and agree with the findings presented. I attest that I had a [id number] encounter with the patient on the same day, and personally performed and documented my assessment and findings in the medical record. (Paco Blackwell MD) Megha Ha Jan 30, 2017 17:36 Paco Blackwell MD Feb 11, 2017 17:39
[2017-01-30] MEDS: HEPARIN SODIUM - SQ 10,000 UNITS/ML VIAL SQ SCH (21:48)
[2017-01-30] MEDS: ACETAMINOPHEN/HYDROcodone 325 MG/7.5 MG TAB PO PRN (21:48)
[2017-01-30] MEDS: ATORVASTATIN 10 MG TAB PO SCH (21:49)
[2017-01-31 04:38] VITALS: BP 179/84; PULSE 61; RESP 16; TEMP 98.2; O2SAT 98
[2017-01-31] MEDS: SODIUM CHLOR 0.45% 1000 ML INJ 1,000 ML IV SCH ×2 (05:40→07:16)
[2017-01-31] MEDS: methylPREDNISolone SOD SUCC 125 MG/2 ML VIAL IV PUSH SCH ×3 (05:49→17:02)
[2017-01-31] MEDS: INSULIN ASPART SUPPLEMENTAL SCALE SQ SCH ×4 (08:30→21:04)
[2017-01-31] MEDS: amLODIPine BESYLATE 5 MG TAB PO SCH (08:30)
[2017-01-31] MEDS: HEPARIN SODIUM - SQ 10,000 UNITS/ML VIAL SQ SCH (08:30)
[2017-01-31] MEDS: ATENOLOL 25 MG TAB PO SCH (08:31)
[2017-01-31] MEDS: SODIUM CHLORIDE 0.9% FLUSH 10 ML FLUSH IV FLUSH SCH ×2 (08:31→21:00)
[2017-01-31] MEDS: DOCUSATE SODIUM 50 MG/SENNA 8.6 MG TAB PO SCH ×3 (08:31→21:31)
[2017-01-31] MEDS: INSULIN ASPART 1,000 UNITS/10 ML VIAL SQ SCH ×3 (08:36→17:01)
[2017-01-31] MEDS: ACETAMINOPHEN/HYDROcodone 325 MG/7.5 MG TAB PO PRN ×2 (09:10→21:32)
[2017-01-31 10:02] VITALS: BP 170/87; PULSE 58; RESP 18; TEMP 97.4; O2SAT 95
[2017-01-31 10:25] VITALS: PULSE 55
--- NOTE | 2017-01-31 12:50 | HHI.PR ---
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 Mr. Kerr is sitting in his chair, eating lunch. No acute concerns. Feels better and hopes to feel even better in the coming days. Objective Vitals Vital Signs Date Time Temp Pulse Resp B/P (MAP) Pulse Ox O2 Delivery O2 Flow Rate FiO2 01/31/17 10:25 55 01/31/17 10:17 18 01/31/17 10:02 97.4 58 18 170/87 (114) 95 01/31/17 04:38 98.2 61 16 179/84 (115) 98 01/30/17 23:43 97.1 60 18 151/80 (103) 96 01/30/17 21:04 97.5 65 16 124/70 (88) 97 01/30/17 20:30 72 01/30/17 15:51 98.0 59 20 130/72 (91) 98 01/30/17 13:04 97.7 60 20 144/87 (106) 98 I/O 01/30/17 01/30/17 01/30/17 01/31/17 01/31/17 01/31/17 07:00 15:00 23:00 07:00 15:00 23:00 Intake Total 1440 ml 129 ml 1056 ml 465 ml 535 ml Output Total 1100 ml 675 ml 550 ml 1075 ml Balance 340 ml 129 ml 381 ml -85 ml -540 ml Intake Oral 240 ml 720 ml IV Total 1200 ml 129 ml 336 ml 465 ml 535 ml Output Urine Total 1100 ml 675 ml 550 ml 1075 ml # Bowel Movements 1 Result Diagram: 01/29/17 0709 01/29/17 0709 Objective Remarks GENERAL: Alert, NAD. SKIN: Warm and dry. HEAD: Normocephalic. EYES: No scleral icterus. No injection or drainage. NECK: Supple, trachea midline. No JVD or lymphadenopathy. CARDIOVASCULAR: Regular rate and rhythm without murmurs, gallops, or rubs. RESPIRATORY: Breath sounds equal bilaterally. No accessory muscle use. GASTROINTESTINAL: Abdomen soft, non-tender, nondistended. MUSCULOSKELETAL: No cyanosis, or edema. 3/5 lower ext strength, 4/5 upper ext. BACK: Nontender without obvious deformity. No CVA tenderness. Procedures IVC filter placement 01/25/2017 LP 01/26/2017 A/P Problem List: (1) Distal end of ulna fracture, closed ICD Code: S52.609A - Unspecified fracture of lower end of unspecified ulna, initial encounter for closed fracture (2) Diabetes mellitus ICD Code: E11.9 - Type 2 diabetes mellitus without complications Assessment and Plan 61-year-old male with history of diabetes mellitus, gouty arthritis, COPD secondary to recurrent nephrolithiasis per the patient, presents with multiple complaints including bilateral lower extremity weakness, falls, right arm pain. Right Distal Ulna Oblique Fracture: RUE xray images reviewed. - consulted ortho, nonsurgical, recommends continuing splint, plan to transition to cast as outpatient - Continue norco prn and IV Dilaudid prn breakthrough pain Concern for septic arthritis: patient met sepsis criteria with leukocytosis WBC 19.3K, tachycardia HR 132, however afebrile, lactic acid 1.6. Patient has also been on recent steroids as outpatient. WBC 15.8 on 01/24/2017 - elevations in CRP - 31 and ESR - 22 - initially given antibiotics however evaluation by ortho, not concerned for septic joint, will d/c antibiotics and cancel ID consult Acute Renal Failure on CKD stage 3-4: no previous labs to compare. - No prior labs available for comparison - continue on IVF, renal function slowly improving. Creatinine 3.7 --> 2.78. - avoid nephrotoxins - Renal U/S showed evidence of chronic parenchymal disease both kidneys; no obstructive uropathy - consulted nephrology, appreciate assistance Severe Lumbar Spine Stenosis with Significant Lower Extremity Weakness and Recurrent Falls: progressive over the past few months, failed outpatient physical therapy and acupuncture - C-spine MRI showed Multilevel cervical spine degenerative changes; Mild degrees of spinal stenosis at C3/C4-C6/C7; No cord compression or cord signal abnormality; Age indeterminate left paracentral/foraminal disc protrusion at C6/ C7; Multilevel foraminal stenosis, most severe on the left at C6/C7; No fracture or subluxation of the cervical spine. - L-spine MRI showed L4-5 broad-based disc protrusion with severe central canal and lateral recess stenosis and flattening of the exiting right L4 nerve root; L5-S1 there is a disc protrusion and moderate stenosis with flattening of the exiting L5 nerve roots bilaterally; At L3-4 there is a moderate to severe central stenosis and lateral recess stenosis with mild foraminal stenosis; No acute fracture or spondylolisthesis. - Brain MRI showed No acute stroke or other acute intracranial abnormality demonstrated; Moderate severity chronic white matter changes, nonspecific but most likely related to chronic small vessel disease; Few scattered tiny lacunar infarcts of the brainstem; Given the findings are not entirely specific, clinical evaluation for possible multiple sclerosis recommended. - Vit B12, folate, TSH, ammonia all wnl, RPR negative - Neurology and Neurosurgery following. Discussed with Neurosurgery on 2016. Neurosurgery is going to wait for a work up being done by neurology to rule out Guillain [place] syndrome or some other demyelinating disease. - Continue high dose Solu-medrol 250mg Q6hrs X total 5 days - will be completed on 01/31/2017. Bilateral DVT: patient complains of BLE edema and both legs feel "full" and "heavy" - Doppler U/S positive for bilateral DVT. Heparin drip was started but has been on hold. - Patient underwent IVC filter placement on 01/25/2017 - If neurology does not plan to do another LP, we will consider starting patient on Apixaban for 3 months. Type 2 Diabetes Mellitus:Patient takes glipizide at home. - Continue Accu-Cheks before meals and at bedtime with low-dose NovoLog sliding scale coverage - HgbA1c 8.5 - Consult school vocational educator and veterinary technology instructor - Acute hyperglycemia due to steroid. Continue Levemir 10 units QHS, continue sliding scale insulin and pre-meal insulin with aspart. - Increase pre-meal insulin aspart 8 units 3 times a day before meals. - After high-dose steroid is completed tomorrow 01/31/2017, patient may need adjustment of his insulin regimen. Full code. Heparin subcutaneous Kathryn Chairez DO Jan 31, 2017 12:50 pm
[2017-01-31 13:10] VITALS: BP 120/79; PULSE 55; RESP 18; TEMP 97.3; O2SAT 96
--- NOTE | 2017-01-31 14:27 | HHI.NPPN ---
Subjective History of Present Illness 61-year-old with history of urinary stone Review of Systems General Constitutional: Fatigue Objective Data Data 01/31/17 02/01/17 19:00 07:00 Intake Total 535 ml Output Total 1325 ml Balance -790 ml IV Total 535 ml Output Urine Total 1325 ml # Bowel Movements 1 Vital Signs Date Time Temp Pulse Resp B/P (MAP) Pulse Ox O2 Delivery O2 Flow Rate FiO2 01/31/17 13:10 97.3 55 18 120/79 (93) 96 01/31/17 10:25 55 01/31/17 10:17 18 01/31/17 10:02 97.4 58 18 170/87 (114) 95 01/31/17 04:38 98.2 61 16 179/84 (115) 98 01/30/17 23:43 97.1 60 18 151/80 (103) 96 01/30/17 21:04 97.5 65 16 124/70 (88) 97 01/30/17 20:30 72 01/30/17 15:51 98.0 59 20 130/72 (91) 98 -: 01/29/17 0709 01/29/17 0709 Physical Exam General Appearance: Well Developed Neck Neck Exam: Neck Supple Pulmonary Resp Exam: Clear Bilaterally, Breath Sounds Equal Cardiology CV Exam: Regular, Normal Sinus Rhythm Gastrointestinal/Abdomen GI Exam: Soft, Non-Tender, Bowel Sounds Present Extremeties Extremities Exam: No Edema Neurologic Neuro Exam: Alert, Moving All Extremities Assessment/Plan Problem List: (1) Acute renal failure ICD Codes: N17.9 - Acute kidney failure, unspecified Plan: Continue to observe RIOS/SPEP neg CR Declined fu BMP cr 2.1 on soluMedrol for demyelinization LP traumatic DVT IVC filter WBC high due to high dose steroids will follow as needed (2) CKD (chronic kidney disease) stage 3, GFR 30-59 ml/min ICD Codes: N18.3 - Chronic kidney disease, stage 3 (moderate) Plan: Ultrasound revealed chronic kidney disease there is no kidney stones (3) Diabetes ICD Codes: E11.9 - Type 2 diabetes mellitus without complications Plan: Continue to monitor (4) Distal end of ulna fracture, closed ICD Codes: S52.609A - Unspecified fracture of lower end of unspecified ulna, initial encounter for closed fracture Plan: Orthopedic is following Problem Qualifiers (1) Acute renal failure: Qualified Codes: N17.9 - Acute kidney failure, unspecified Laura Liao MD Jan 31, 2017 14:27
--- NOTE | 2017-01-31 16:52 | HHI.PR ---
Review/Management Diagnosis Blood in CSF--? subarachnoid hemorrhage vs other etiology. vs traumatic tap possible transverse myelitis , ? MS (MRI brain is suggestive) severe lumbar stenosis He has shown significant improvement in strength with iv solumedrol--this is most c/w transverse myelitis. Plan follow up csf igg index, myelin basic protein and oligoclonal bands. If inconclusinve consider repeat LP Diagnosis/Plan: Subjective Subjective Comments No acute events reported He feels strength is improved Active Medications Current Medications Medications (Trade) Dose Ordered Sig/Rosalia Route Start Time Stop Time Status Last Admin (NS Flush) 2 ml UNSCH PRN IV FLUSH 01/23/17 00:30 01/27/17 04:53 (NS Flush) 2 ml BID IV FLUSH 01/23/17 09:00 01/31/17 08:31 (Tylenol) 650 mg Q4H PRN PO 01/23/17 00:30 (Zofran Inj) 4 mg Q6H PRN IVP 01/23/17 00:30 ([place] 5-325 Mg) 1 tab Q4H PRN PO 01/23/17 00:30 01/23/17 19:39 ([place] 7.5-325 Mg) 1 tab Q4H PRN PO 01/23/17 00:30 01/31/17 09:10 (Narcan Inj) 0.4 mg UNSCH PRN IV 01/23/17 00:30 ([place]-Colace) 1 tab BID PO 01/23/17 09:00 01/31/17 08:31 (Milk Of Magnesia Liq) 30 ml Q12H PRN PO 01/23/17 00:30 (Senokot) 17.2 mg Q12H PRN PO 01/23/17 00:30 (Dulcolax Supp) 10 mg DAILY PRN RECTAL 01/23/17 00:30 (D50w (Vial) Inj) 50 ml UNSCH PRN IV 01/23/17 07:45 (Glucagon Inj) 1 mg UNSCH PRN OTHER 01/23/17 07:45 (NovoLOG SUPPLEMENTAL SCALE) 1 ACHS SLIDING SCALE SQ 01/23/17 11:00 01/31/17 12:16 Sodium Chloride 1,000 ml @ 84 mls/hr [id number] IV 01/23/17 18:30 01/31/17 07:16 (Tenormin) 25 mg DAILY PO 01/24/17 13:00 01/31/17 08:31 (Lipitor) 10 mg HS PO 01/24/17 21:00 01/30/17 21:49 (Catapres) 0.1 mg Q6H PRN PO 01/24/17 18:00 01/28/17 12:34 (Dilaudid Pf Inj) 0.5 mg Q4H PRN IV PUSH 01/26/17 15:00 01/27/17 00:01 (SoluMEDROL INJ) 250 mg Q6HR IV PUSH 01/27/17 00:00 01/31/17 12:15 (Norvasc) 5 mg DAILY PO 01/28/17 09:00 01/31/17 08:30 (Levemir Inj) 10 units HS SQ 01/29/17 21:00 01/30/17 06:19 (NovoLOG INJ) 8 units TIDAC SQ 01/30/17 12:00 01/31/17 12:16 (Heparin Inj) 5,000 units Q12HR SQ 01/30/17 21:00 01/31/17 08:30 Allergies Allergies Coded Allergies levofloxacin (Verified Allergy, Severe, 01/22/17) Exam I&O / VS 01/31/17 01/31/17 02/01/17 15:00 23:00 07:00 Intake Total 535 ml Output Total 1325 ml Balance -790 ml IV Total 535 ml Output Urine Total 1325 ml # Bowel Movements 1 Vital Signs Date Time Temp Pulse Resp B/P (MAP) Pulse Ox O2 Delivery O2 Flow Rate FiO2 01/31/17 13:10 97.3 55 18 120/79 (93) 96 01/31/17 10:25 55 01/31/17 10:17 18 01/31/17 10:02 97.4 58 18 170/87 (114) 95 01/31/17 04:38 98.2 61 16 179/84 (115) 98 01/30/17 23:43 97.1 60 18 151/80 (103) 96 01/30/17 21:04 97.5 65 16 124/70 (88) 97 01/30/17 20:30 72 Exam Comments alert, speech normal CN intact MOTOR 5/5 BUE, 5/5 bilateral iliopsoas, 5/5 bilateral quadricep and hamstring and tibialis anterior Arreflexic BUE and BLE Objective Micro and Labs Date/Time Source Procedure Growth Status 01/22/17 21:05 Blood Peripheral Aerobic Blood Culture - Final NO GROWTH IN 5 DAYS Complete 01/22/17 21:05 Blood Peripheral Anaerobic Blood Culture - Final NO GROWTH IN 5 DAYS Complete 01/26/17 12:52 Cerebral Spinal Fluid Lumbar Puncture Fungal Smear - Final NO FUNGAL ELEMENTS SEEN. Resulted 01/26/17 12:52 Cerebral Spinal Fluid Lumbar Puncture Fungal Culture Pending Resulted Chirag Crenshaw PhD MD Jan 31, 2017 16:52
[2017-01-31 17:15] VITALS: BP 157/94; PULSE 53; RESP 18; TEMP 97.5; O2SAT 99
[2017-01-31 18:36] LABS: BASOPHIL # 0.1 TH/MM3 (0-0.2); BASOPHIL % 0.2 % (0.0-2.0); HEMATOCRIT 36.9 % (39.0-51.0); LYMPH % 3.7 % (9.0-44.0); LYMPHOCYTE # 0.8 TH/MM3 (1.0-4.8); MEAN CELL VOLUME 82.2 FL (80.0-100.0); MEAN CORPUSCULAR HEMOGLOBIN 26.8 PG (27.0-34.0); MEAN CORPUSCULAR HGB CONC 32.6 % (32.0-36.0); MONO % 1.8 % (0.0-8.0); NEUT % 94.3 % (16.0-70.0); PLATELET COUNT 533 TH/MM3 (150-450); RED BLOOD COUNT 4.49 MIL/MM3 (4.50-5.90); RED CELL DISTRIBUTION WIDTH 17.4 % (11.6-17.2); WHITE BLOOD COUNT 22.3 TH/MM3 (4.0-11.0)
[2017-01-31 18:52] LABS: APTT (PATIENT) 25.9 SEC (24.3-30.1); INTERNATIONAL NORMALIZED RATIO 1.1 RATIO; PROTHROMBIN TIME - PATIENT 12.7 SEC (9.8-11.6)
[2017-01-31 19:08] LABS: HEMO FLAGS AUTO DIFF
[2017-01-31 19:44] LABS: BANDS 4 % (0-6); METAMYELOCYTES 5 % (0-1); MYELOCYTES 1 % (0-0); NEUTROPHIL # MANUAL DIFF 21.4 TH/MM3 (1.8-7.7); POLYS (SEG NEUTROPHILS) 86 % (16-70); WBC DIFF SAMPLE 100
[2017-01-31 19:45] LABS: PLATELET ESTIMATE SMEAR HIGH (NORMAL); PLATELET MORPHOLOGY NORMAL (NORMAL); SCAN/DIFF FINAL DIFF MANUAL
[2017-01-31 20:00] VITALS: BP 163/82; PULSE 54; RESP 19; TEMP 98; O2SAT 95
[2017-01-31] MEDS: INSULIN DETEMIR 100 UNITS/ML VIAL SQ SCH (21:05)
[2017-01-31] MEDS: ATORVASTATIN 10 MG TAB PO SCH (21:32)
[2017-02-01] MEDS: methylPREDNISolone SOD SUCC 125 MG/2 ML VIAL IV PUSH SCH ×4 (01:15→16:53)
[2017-02-01] MEDS: SODIUM CHLORIDE 0.9% FLUSH 10 ML FLUSH IV FLUSH PRN ×2 (01:15→05:07)
[2017-02-01] MEDS: ACETAMINOPHEN/HYDROcodone 325 MG/7.5 MG TAB PO PRN (02:10)
[2017-02-01 04:00] VITALS: BP 158/75; PULSE 54; RESP 18; TEMP 97.6; O2SAT 96
[2017-02-01 08:33] VITALS: BP 161/84; PULSE 56; RESP 20; TEMP 97.3; O2SAT 96
[2017-02-01] MEDS: ATENOLOL 25 MG TAB PO SCH (08:51)
[2017-02-01] MEDS: amLODIPine BESYLATE 5 MG TAB PO SCH (08:51)
[2017-02-01] MEDS: DOCUSATE SODIUM 50 MG/SENNA 8.6 MG TAB PO SCH ×2 (08:51→21:40)
[2017-02-01] MEDS: SODIUM CHLORIDE 0.9% FLUSH 10 ML FLUSH IV FLUSH SCH ×2 (08:52→21:00)
--- NOTE | 2017-02-01 10:18 | PD.RAD ---
Post Procedure Progress Note Pre Procedure Diagnosis: (1) Altered mental status Post Procedure Diagnosis: (1) Altered mental status Procedure Date: Feb 01, 2017 Supervising Radiologist: Nabeel Peralta Anesthesia: Local Plan of Activity Patient to Unit: Nursing Unit Patient Condition: Fair Additional Comments: LP completed Single puncture at L2/L3 8cc of clear CSF removed and sent to lab See PACS Report for procedural detail/treatment Nabeel Peralta MD Feb 01, 2017 10:18
--- NOTE | 2017-02-01 10:43 | HHI.PR ---
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 Patient is currently doing well. He is still not able to walk well. He underwent repeat LP today. No fever or chills. Objective Vitals Vital Signs Date Time Temp Pulse Resp B/P (MAP) Pulse Ox O2 Delivery O2 Flow Rate FiO2 02/01/17 08:33 97.3 56 20 161/84 (109) 96 02/01/17 04:00 97.6 54 18 158/75 (102) 96 01/31/17 20:00 98.0 54 19 163/82 (109) 95 01/31/17 17:15 97.5 53 18 157/94 (115) 99 01/31/17 13:10 97.3 55 18 120/79 (93) 96 I/O 01/31/17 01/31/17 01/31/17 02/01/17 02/01/17 02/01/17 07:00 15:00 23:00 07:00 15:00 23:00 Intake Total 465 ml 535 ml 240 ml Output Total 550 ml 1325 ml 1350 ml 800 ml Balance -85 ml -790 ml -1110 ml -800 ml Intake Oral 240 ml IV Total 465 ml 535 ml Output Urine Total 550 ml 1325 ml 1350 ml 800 ml # Bowel Movements 1 Result Diagram: 01/31/17 1800 01/29/17 0709 Imaging Last Impressions Lumbar Puncture Fluoroscopy 02/01/17 0000 Signed Impressions: Service Date/Time: January 09:35 - CONCLUSION: Uncomplicated fluoroscopically guided lumbar puncture. CSF was clear. Nabeel Peralta MD Head Magnetic Resonance Angiography 01/27/17 0000 Signed Impressions: Service Date/Time: Friday, January 27, 2017 10:33 - CONCLUSION: No intracranial vascular abnormality is identified. There is no aneurysm visualized. Angelo Allen MD IVC Filter Placement X-Ray 01/25/17 0000 Signed Impressions: Service Date/Time: January 10:29 - CONCLUSION: Uncomplicated inferior vena cava filter placement as above. Yung Fowler MD Thoracic Spine MRI 01/24/17 0000 Signed Impressions: Service Date/Time: Tuesday, January 24, 2017 22:29 - CONCLUSION: 1. Mild degenerative spondylosis most prominently at T11-L1 with slight effacement of the anterior thecal sac and left lateral recess. No significant neural foraminal stenosis. 2. No acute fracture. Juan Bhakta MD Renal Ultrasound 01/23/17 Signed Impressions: Service Date/Time: Monday, January 23, 2017 08:53 - CONCLUSION: 1. Evidence of chronic parenchymal disease of both kidneys. No obstructive uropathy or other acute abnormality demonstrated. 2. Trace ascites, nonspecific. Angelo Garrido MD Lumbar Spine MRI 01/23/17 Signed Impressions: Service Date/Time: Monday, January 23, 2017 17:01 - CONCLUSION: 1. At L4-5 is a broad-based disc protrusion with severe central canal and lateral recess stenosis and flattening of the exiting right L4 nerve root. 2. L5-S1 there is a disc protrusion and moderate stenosis with flattening of the exiting L5 nerve roots bilaterally. 3. At L3-4 there is a moderate to severe central stenosis and lateral recess stenosis with mild foraminal stenosis. 4. No acute fracture or spondylolisthesis. Trace Holloway MD Lower Extremity Ultrasound 01/23/17 Signed Impressions: Service Date/Time: Monday, January 23, 2017 09:53 - CONCLUSION: Bilateral focal lower extremity DVT involving the posterior tibial veins. Angelo Garrido MD Cervical Spine MRI 01/23/17 Signed Impressions: Service Date/Time: Monday, January 23, 2017 17:01 - CONCLUSION: 1. Multilevel cervical spine degenerative changes as above. 2. Mild degrees of spinal stenosis at C3/C4-C6/C7. No cord compression or cord signal abnormality. 3. Age indeterminate left paracentral/foraminal disc protrusion at C6/C7. 4. Multilevel foraminal stenosis, most severe on the left at C6/C7. Please see individual levels above. 5. No fracture or subluxation of the cervical spine. Angelo Garrido MD Brain MRI 01/23/17 Signed Impressions: Service Date/Time: Monday, January 23, 2017 17:01 - CONCLUSION: 1. No acute stroke or other acute intracranial abnormality demonstrated. 2. Moderate severity chronic white matter changes, nonspecific but most likely related to chronic small vessel disease. 3. Few scattered tiny lacunar infarcts of the brainstem. 4. Given the findings are not entirely specific, clinical evaluation for possible multiple sclerosis recommended. Angelo Garrido MD Head CT 01/22/172202 Signed Impressions: Service Date/Time: Sunday, January 22, 2017 22:39 - CONCLUSION: Negative noncontrast CT Benjamin Person MD Chest X-Ray 01/22/172202 Signed Impressions: Service Date/Time: Sunday, January 22, 2017 22:18 - CONCLUSION: No acute disease. Benjamin Person MD Wrist X-Ray 01/22/[id number] Signed Impressions: Service Date/Time: Sunday, January 22, 2017 21:21 - CONCLUSION: 1. Nondisplaced oblique fracture through the distal ulna. 2. Chronic appearing deformity of the distal ulna as well. 3. Extensive degenerative change and osteopenia. Benjamin Person MD Knee X-Ray 01/22/172053 Signed Impressions: Service Date/Time: Sunday, January 22, 2017 21:17 - CONCLUSION: 1. Evidence of moderate to large joint effusion. 2. No acute fracture or malalignment. 3. Mild 3 compartment osteoarthritic change. Benjamin Person MD Hip and Pelvis X-Ray 01/22/[id number] Signed Impressions: Service Date/Time: Sunday, January 22, 2017 21:10 - CONCLUSION: 1. Mild to moderate degenerative change of both hips with no acute fracture or malalignment. There is flattening and remodeling of the right humeral head. Benjamin Person MD Objective Remarks GENERAL: Alert, NAD. SKIN: Warm and dry. HEAD: Normocephalic. EYES: No scleral icterus. No injection or drainage. NECK: Supple, trachea midline. No JVD or lymphadenopathy. CARDIOVASCULAR: Regular rate and rhythm without murmurs, gallops, or rubs. RESPIRATORY: Breath sounds equal bilaterally. No accessory muscle use. GASTROINTESTINAL: Abdomen soft, non-tender, nondistended. MUSCULOSKELETAL: No cyanosis, or edema. 3/5 lower ext strength, 4/5 upper ext. BACK: Nontender without obvious deformity. No CVA tenderness. Procedures IVC filter placement 01/25/2017 LP 01/26/2017 A/P Problem List: (1) Distal end of ulna fracture, closed ICD Code: S52.609A - Unspecified fracture of lower end of unspecified ulna, initial encounter for closed fracture (2) Diabetes mellitus ICD Code: E11.9 - Type 2 diabetes mellitus without complications Assessment and Plan 61-year-old male with history of diabetes mellitus, gouty arthritis, COPD secondary to recurrent nephrolithiasis per the patient, presents with multiple complaints including bilateral lower extremity weakness, falls, right arm pain. Right Distal Ulna Oblique Fracture: RUE xray images reviewed. - consulted ortho, nonsurgical, recommends continuing splint, plan to transition to cast as outpatient - Continue norco prn and IV Dilaudid prn breakthrough pain Concern for septic arthritis: patient met sepsis criteria with leukocytosis WBC 19.3K, tachycardia HR 132, however afebrile, lactic acid 1.6. Patient has also been on recent steroids as outpatient. WBC 15.8 on 01/24/2017 - elevations in CRP - 31 and ESR - 22 - initially given antibiotics however evaluation by ortho, not concerned for septic joint, will d/c antibiotics and cancel ID consult Acute Renal Failure on CKD stage 3-4: no previous labs to compare. - No prior labs available for comparison - continue on IVF, renal function slowly improving. Creatinine 3.7 --> 2.78. - avoid nephrotoxins - Renal U/S showed evidence of chronic parenchymal disease both kidneys; no obstructive uropathy - consulted nephrology, appreciate assistance Severe Lumbar Spine Stenosis with Significant Lower Extremity Weakness and Recurrent Falls: progressive over the past few months, failed outpatient physical therapy and acupuncture - C-spine MRI showed Multilevel cervical spine degenerative changes; Mild degrees of spinal stenosis at C3/C4-C6/C7; No cord compression or cord signal abnormality; Age indeterminate left paracentral/foraminal disc protrusion at C6/ C7; Multilevel foraminal stenosis, most severe on the left at C6/C7; No fracture or subluxation of the cervical spine. - L-spine MRI showed L4-5 broad-based disc protrusion with severe central canal and lateral recess stenosis and flattening of the exiting right L4 nerve root; L5-S1 there is a disc protrusion and moderate stenosis with flattening of the exiting L5 nerve roots bilaterally; At L3-4 there is a moderate to severe central stenosis and lateral recess stenosis with mild foraminal stenosis; No acute fracture or spondylolisthesis. - Brain MRI showed No acute stroke or other acute intracranial abnormality demonstrated; Moderate severity chronic white matter changes, nonspecific but most likely related to chronic small vessel disease; Few scattered tiny lacunar infarcts of the brainstem; Given the findings are not entirely specific, clinical evaluation for possible multiple sclerosis recommended. - Vit B12, folate, TSH, ammonia all wnl, RPR negative - Neurology and Neurosurgery following. Discussed with Neurosurgery on 2016. Neurosurgery is going to wait for a work up being done by neurology to rule out Guillain [place] syndrome or some other demyelinating disease. - Continued high dose Solu-medrol 250mg Q6hrs X total 5 days - completed on 01/31. - Repeat LP shows clear, previous LP showed blood in the CSF which was thought to be traumatic by neurology. Bilateral DVT: patient complains of BLE edema and both legs feel "full" and "heavy" - Doppler U/S positive for bilateral DVT. Heparin drip was started but has been on hold. - Patient underwent IVC filter placement on 01/25/2017 Type 2 Diabetes Mellitus:Patient takes glipizide at home. - Continue Accu-Cheks before meals and at bedtime with low-dose NovoLog sliding scale coverage - HgbA1c 8.5 - Consult analog circuit designer and roller mill operator - Acute hyperglycemia due to steroid. Continue Levemir 10 units QHS, continue sliding scale insulin and pre-meal insulin with aspart. - Increase pre-meal insulin aspart 8 units 3 times a day before meals. Full code. Heparin subcutaneous Discharge Plan: Due to lack of insurance, it would be difficult to find rehab. However, if he is able to ambulate some, Home with outpatient PT would be an option. Will order wheelchair and bedside commode for him. Problem Qualifiers (1) Diabetes mellitus: Qualified Codes: E11.9 - Type 2 diabetes mellitus without complications Kathryn Chairez DO Feb 01, 2017 10:43 am
[2017-02-01] MEDS: INSULIN ASPART SUPPLEMENTAL SCALE SQ SCH ×4 (11:08→21:40)
[2017-02-01] MEDS: SODIUM CHLOR 0.45% 1000 ML INJ 1,000 ML IV SCH ×2 (11:09→21:39)
[2017-02-01] MEDS: INSULIN ASPART 1,000 UNITS/10 ML VIAL SQ SCH ×3 (11:09→18:21)
--- NOTE | 2017-02-01 11:40 | PD.WCN.NOT ---
Wound Consult Description: Received consult for wound management of buttock area from Doctor Kathryn Chairez. Communicated with: ROHINI sosa and Doctor Kathryn Chairez for orders Recommendation: Please cleanse buttock and sacral areas with soap and water gently and pat dry before applying Calazime barrier cream BID and PRN and leave open to air. It is OK to not completely remove Calazime barrier cream from patient when cleaning. Please do not scrub off. Do not apply adhesive foam dressings Pressure relieving support surface ordered per protocol Turn patient every 2 hours and PRN for comfort Additional Information: Patient seen on [address] [place] [address] for evaluation of wound management to buttock area. Patient is laying on regular bed during wound assessment. Turned patient to R side with maximum assistance from ROHINI sosa and designer/writer. Removed adhesive foam dressing to reveal non blanchable purple discoloration to intact skin on sacral area, indicating DTI. Bilateral buttocks noted with scattered diffuse areas of partial thickness skin loss, with peeling, denuded, blanchable erythematous skin that appears moisture related. Partial thickness skin loss appears dry and non draining.Patient denies incontinence.Cleansed sacral and bilateral buttock areas with normal saline and applied thick layer of Calazime barrier cream. Positioned patient to L side with pillows in place for support. Do not recommend adhesive foam dressings at time Ashley Fuller CRN Feb 01, 2017 11:40
[2017-02-01 11:45] LABS: CSF LYMPHOCYTES 14 %; CSF MONOCYTES 10 %; CSF NEUTROPHILS 71 %
[2017-02-01 11:47] LABS: HEMATOCRIT 37.8 % (39.0-51.0); MEAN CELL VOLUME 81.8 FL (80.0-100.0); MEAN CORPUSCULAR HEMOGLOBIN 26.8 PG (27.0-34.0); MEAN CORPUSCULAR HGB CONC 32.8 % (32.0-36.0); PLATELET COUNT 532 TH/MM3 (150-450); RED BLOOD COUNT 4.63 MIL/MM3 (4.50-5.90); RED CELL DISTRIBUTION WIDTH 17.2 % (11.6-17.2); REVIEW FLAG FINAL; WHITE BLOOD COUNT 18.9 TH/MM3 (4.0-11.0)
[2017-02-01 11:52] LABS: WBC TUBE #4 32 /MM3 (0-10)
[2017-02-01 11:53] VITALS: BP 180/86; PULSE 53; RESP 20; TEMP 97.2; O2SAT 99
[2017-02-01 11:53] LABS: GROSS BLOOD TUBE #1 TRACE (0); GROSS BLOOD TUBE #2 TRACE (0); GROSS BLOOD TUBE #3 TRACE (0); SUPERNATE COLOR TUBE #1 CLEAR (CLEAR); SUPERNATE COLOR TUBE #2 CLEAR (CLEAR); SUPERNATE COLOR TUBE #3 CLEAR (CLEAR); SUPERNATE COLOR TUBE #4 CLEAR (CLEAR); VOLUME TUBE # 1 0.9 ML; VOLUME TUBE # 2 0.8 ML; VOLUME TUBE # 3 1.1 ML; VOLUME TUBE # 4 2.8 ML
[2017-02-01 11:54] LABS: GROSS BLOOD TUBE #4 1+ (0)
[2017-02-01] MEDS ORDERED: COMMODE 3-IN-11 MIS (12:19)
[2017-02-01] MEDS ORDERED: WHEEMIS3 (12:19)
--- NOTE | 2017-02-01 12:46 | RADRPT ---
EXAM DATE/TIME: 02/01/2017 09:35 [place] COMPARISON: LUMBAR PUNCTURE, January 26, 2017, 11:57. INDICATIONS : Fell and hurt right wrist . Sepsis.Bilateral lower extremity weakness. MEDICAL HISTORY : 1. DM 2. Gouty arthritis 3. HTN 4. CHF 5. CKD 6, fx rt ulnar SURGICAL HISTORY : 1. kidney stents ENCOUNTER: Initial ACUITY: 2 weeks PAIN SCORE: 5/10 LOCATION: right arm ,lt shoulder LUMBAR PUNCTURE TIME: 0955 hours FLUORO TIME: 1.5 minutes IMAGE SERIES: 0 ACCESS LEVEL: L2-3 FLUID: 6.5 cc of clear CSF was collected and sent to the laboratory for analysis. PROCEDURE : 1. Fluoroscopic guided lumbar puncture. The risks, benefits and alternatives to the procedure were explained and verbal and written consent w as obtained. The site was prepped in sterile fashion. Full sterile technique was used, including ca p, mask, sterile gloves and gown and a large sterile sheet. Hand hygiene and 2% chlorhexidine and/or betadine/alcohol prep was utilized per protocol for cutaneous antisepsis. The skin and subcutaneous tissues were infiltrated with local anesthetic solution. With fluoroscopic guidance the lumbar thecal sac was punctured at the level above. The fluid describ ed above was removed without difficulty. The patient tolerated the procedure well and there were no complications. CONCLUSION: Uncomplicated fluoroscopically guided lumbar puncture. CSF was clear. Nabeel Peralta MD on February 01, 2017 at 12:41 Board Certified Radiologist. This report was verified electronically.
[2017-02-01 15:10] LABS: IGG CSF 21.6 mg/dL (<=8.1); IGG INDEX CSF 0.48 (<=0.85); IGG/ALBUMIN CSF 0.16 (<=0.21); IGG/ALBUMIN SERUM 0.33 (<=0.40); SYNTHESIS RATE CSF 10.17 mg/24 h (<=12)
[2017-02-01 16:07] VITALS: BP 130/78; PULSE 63; RESP 20; TEMP 97.3; O2SAT 99
[2017-02-01 16:07] LABS: OLIGOCLONAL BANDING CSF 7 bands; OLIGOCLONAL BANDING INTERPRET 0 bands (<4); OLIGOCLONAL BANDING SERUM 7 bands
[2017-02-01 19:27] LABS: ULNAR PULSE PRESENT
--- NOTE | 2017-02-01 19:46 | HHI.PR ---
Review/Management Diagnosis probable transverse myelitis--improved with solumedrol CSF studies with elevated protein and elevated wbc c/w this dx but follow up on oligoclonal bands and myelin basic protein RBC in csf may be due to traumatic tap as the supernatant was clear and not xanthochromic Plan stop steroids ok from neurostandpoint to d/c --possibly to rehab would hold off on anticoagulation given the persistent elevated RBC in the CSF Diagnosis/Plan: Subjective Subjective Comments No acute events reported He feels strength is better Active Medications Current Medications Medications (Trade) Dose Ordered Sig/Rosalia Route Start Time Stop Time Status Last Admin (NS Flush) 2 ml UNSCH PRN IV FLUSH 01/23/17 00:30 02/01/17 05:07 (NS Flush) 2 ml BID IV FLUSH 01/23/17 09:00 01/31/17 08:31 (Tylenol) 650 mg Q4H PRN PO 01/23/17 00:30 (Zofran Inj) 4 mg Q6H PRN IVP 01/23/17 00:30 (Harleigh 5-325 Mg) 1 tab Q4H PRN PO 01/23/17 00:30 01/23/17 19:39 (Harleigh 7.5-325 Mg) 1 tab Q4H PRN PO 01/23/17 00:30 02/01/17 02:10 (Narcan Inj) 0.4 mg UNSCH PRN IV 01/23/17 00:30 (Edna-Colace) 1 tab BID PO 01/23/17 09:00 01/31/17 08:31 (Milk Of Magnesia Liq) 30 ml Q12H PRN PO 01/23/17 00:30 (Senokot) 17.2 mg Q12H PRN PO 01/23/17 00:30 (Dulcolax Supp) 10 mg DAILY PRN RECTAL 01/23/17 00:30 (D50w (Vial) Inj) 50 ml UNSCH PRN IV 01/23/17 07:45 (Glucagon Inj) 1 mg UNSCH PRN OTHER 01/23/17 07:45 (NovoLOG SUPPLEMENTAL SCALE) 1 ACHS SLIDING SCALE SQ 01/23/17 11:00 02/01/17 18:22 Sodium Chloride 1,000 ml @ 84 mls/hr [id number] IV 01/23/17 18:30 9/14/17 11:09 (Tenormin) 25 mg DAILY PO 01/24/17 13:00 02/01/17 08:51 (Lipitor) 10 mg HS PO 01/24/17 21:00 01/31/17 21:32 (Catapres) 0.1 mg Q6H PRN PO 01/24/17 18:00 01/28/17 12:34 (Dilaudid Pf Inj) 0.5 mg Q4H PRN IV PUSH 01/26/17 15:00 01/27/17 00:01 (SoluMEDROL INJ) 250 mg Q6HR IV PUSH 01/27/17 00:00 02/01/17 16:53 (Norvasc) 5 mg DAILY PO 01/28/17 09:00 02/01/17 08:51 (Levemir Inj) 10 units HS SQ 01/29/17 21:00 01/31/17 21:05 (NovoLOG INJ) 8 units TIDAC SQ 01/30/17 12:00 02/01/17 18:21 Allergies Allergies Coded Allergies levofloxacin (Verified Allergy, Severe, 01/22/17) Exam I&O / VS 02/01/17 02/01/17 02/02/17 15:00 23:00 07:00 Intake Total 240 ml Output Total 350 ml Balance -110 ml Intake Oral 240 ml Output Urine Total 350 ml Vital Signs Date Time Temp Pulse Resp B/P (MAP) Pulse Ox O2 Delivery O2 Flow Rate FiO2 02/01/17 16:07 97.3 63 20 130/78 (95) 99 02/01/17 11:53 97.2 53 20 180/86 (117) 99 02/01/17 08:33 97.3 56 20 161/84 (109) 96 02/01/17 04:00 97.6 54 18 158/75 (102) 96 01/31/17 20:00 98.0 54 19 163/82 (109) 95 Exam Comments alert, speech normal CN intact MOTOR 5/5 BUE, 5/5 bilateral iliopsoas, 5/5 bilateral quadricep and hamstring and tibialis anterior Arreflexic BUE and BLE Objective Micro and Labs Laboratory Tests Test 02/01/17 09:55 02/01/17 11:21 CSF Volume (Tube 1) 0.9 CSF Supernatant Color (tube 1) CLEAR CSF Gross Blood (Tube 1) TRACE CSF Volume (Tube 2) 0.8 CSF Supernatant Color (tube 2) CLEAR CSF Gross Blood (Tube 2) TRACE CSF Volume (Tube 3) 1.1 CSF Supernatant Color (tube 3) CLEAR CSF Gross Blood (Tube 3) TRACE CSF Volume (Tube 4) 2.8 CSF Supernatant Color (tube 4) CLEAR CSF Gross Blood (Tube 4) 1+ CSF WBC (Tube 4) 32 CSF RBC (Tube 4) 671 CSF Neutrophils 71 CSF Lymphocytes 14 CSF Monocytes 10 CSF Histiocytes 5 CSF Glucose 160 CSF Total Protein 125.1 White Blood Count 18.9 Red Blood Count 4.63 Hemoglobin 12.4 Hematocrit 37.8 Mean Corpuscular Volume 81.8 Mean Corpuscular Hemoglobin 26.8 Mean Corpuscular Hemoglobin Concent 32.8 Red Cell Distribution Width 17.2 Platelet Count 532 Mean Platelet Volume 7.9 Date/Time Source Procedure Growth Status 01/22/17 21:05 Blood Peripheral Aerobic Blood Culture - Final NO GROWTH IN 5 DAYS Complete 01/22/17 21:05 Blood Peripheral Anaerobic Blood Culture - Final NO GROWTH IN 5 DAYS Complete 02/01/17 09:55 Cerebral Spinal Fluid Lumbar Puncture Fungal Smear - Final NO FUNGAL ELEMENTS SEEN. Resulted 02/01/17 09:55 Cerebral Spinal Fluid Lumbar Puncture Fungal Culture Pending Resulted Chirag Crenshaw PhD Feb 01, 2017 19:46
[2017-02-01 20:28] VITALS: BP 148/74; PULSE 61; RESP 16; TEMP 97.7; O2SAT 98
[2017-02-01] MEDS: INSULIN DETEMIR 100 UNITS/ML VIAL SQ SCH (21:00)
[2017-02-01] MEDS: ATORVASTATIN 10 MG TAB PO SCH (21:40)
[2017-02-02] VITALS (9 sets, daily range): BP systolic 135–196; BP diastolic 78–96; PULSE 48–71; RESP 17–18; TEMP 97.2–97.9; O2SAT 97–98
[2017-02-02] MEDS: SODIUM CHLOR 0.45% 1000 ML INJ 1,000 ML IV SCH (06:56)
[2017-02-02] MEDS: methylPREDNISolone SOD SUCC 125 MG/2 ML VIAL IV PUSH SCH ×3 (06:57→12:09)
[2017-02-02] MEDS: INSULIN ASPART 1,000 UNITS/10 ML VIAL SQ SCH ×3 (08:55→18:47)
[2017-02-02] MEDS: amLODIPine BESYLATE 5 MG TAB PO SCH (08:55)
[2017-02-02] MEDS: DOCUSATE SODIUM 50 MG/SENNA 8.6 MG TAB PO SCH ×2 (08:55→21:00)
[2017-02-02] MEDS: INSULIN ASPART SUPPLEMENTAL SCALE SQ SCH ×4 (08:55→21:53)
[2017-02-02] MEDS: ATENOLOL 25 MG TAB PO SCH (08:55)
[2017-02-02] MEDS: SODIUM CHLORIDE 0.9% FLUSH 10 ML FLUSH IV FLUSH SCH ×2 (08:56→21:54)
--- NOTE | 2017-02-02 10:50 | HHI.PR ---
Subjective Remarks Follow-up for probable transverse myelitis. Patient is sitting up in a wheelchair. He states he's been rolling in the halls in the wheelchair trying to get his strength up. He doesn't like being in the hospital. He states he doesn't sleep well here, his is willing to try something for sleep. He states his son is making arrangements for him to live there. He would like to go home if possible. Objective Vitals Vital Signs Date Time Temp Pulse Resp B/P (MAP) Pulse Ox O2 Delivery O2 Flow Rate FiO2 02/02/17 08:13 97.5 61 17 196/96 (129) 97 02/02/17 04:45 97.9 60 18 174/84 (114) 97 02/02/17 04:00 97.9 60 18 174/84 (114) 97 02/02/17 00:00 97.7 58 18 150/86 (107) 98 02/01/17 20:28 97.7 61 16 148/74 (98) 98 02/01/17 16:07 97.3 63 20 130/78 (95) 99 02/01/17 11:53 97.2 53 20 180/86 (117) 99 I/O 02/01/17 02/01/17 02/01/17 02/02/17 02/02/17 02/02/17 07:00 15:00 23:00 07:00 15:00 23:00 Intake Total 240 ml Output Total 800 ml 350 ml 600 ml Balance -800 ml -110 ml -600 ml Intake Oral 240 ml Output Urine Total 800 ml 350 ml 600 ml # Bowel Movements 0 Result Diagram: 02/01/17 1121 01/29/17 0709 Imaging Last Impressions Lumbar Puncture Fluoroscopy 02/01/17 0000 Signed Impressions: Service Date/Time: January 09:35 - CONCLUSION: Uncomplicated fluoroscopically guided lumbar puncture. CSF was clear. Nabeel Peralta MD Head Magnetic Resonance Angiography 01/27/17 0000 Signed Impressions: Service Date/Time: Friday, January 27, 2017 10:33 - CONCLUSION: No intracranial vascular abnormality is identified. There is no aneurysm visualized. Angelo Allen MD IVC Filter Placement X-Ray 01/25/17 0000 Signed Impressions: Service Date/Time: January 10:29 - CONCLUSION: Uncomplicated inferior vena cava filter placement as above. Yung Fowler MD Thoracic Spine MRI 01/24/17 Signed Impressions: Service Date/Time: Tuesday, January 24, 2017 22:29 - CONCLUSION: 1. Mild degenerative spondylosis most prominently at T11-L1 with slight effacement of the anterior thecal sac and left lateral recess. No significant neural foraminal stenosis. 2. No acute fracture. Juan Bhakta MD Renal Ultrasound 01/23/17 Signed Impressions: Service Date/Time: Monday, January 23, 2017 08:53 - CONCLUSION: 1. Evidence of chronic parenchymal disease of both kidneys. No obstructive uropathy or other acute abnormality demonstrated. 2. Trace ascites, nonspecific. Angelo Garrido MD Lumbar Spine MRI 01/23/17 Signed Impressions: Service Date/Time: Monday, January 23, 2017 17:01 - CONCLUSION: 1. At L4-5 is a broad-based disc protrusion with severe central canal and lateral recess stenosis and flattening of the exiting right L4 nerve root. 2. L5-S1 there is a disc protrusion and moderate stenosis with flattening of the exiting L5 nerve roots bilaterally. 3. At L3-4 there is a moderate to severe central stenosis and lateral recess stenosis with mild foraminal stenosis. 4. No acute fracture or spondylolisthesis. Trace Holloway MD Lower Extremity Ultrasound 01/23/17 Signed Impressions: Service Date/Time: Monday, January 23, 2017 09:53 - CONCLUSION: Bilateral focal lower extremity DVT involving the posterior tibial veins. Angelo Garrido MD Cervical Spine MRI 01/23/17 Signed Impressions: Service Date/Time: Monday, January 23, 2017 17:01 - CONCLUSION: 1. Multilevel cervical spine degenerative changes as above. 2. Mild degrees of spinal stenosis at C3/C4-C6/C7. No cord compression or cord signal abnormality. 3. Age indeterminate left paracentral/foraminal disc protrusion at C6/C7. 4. Multilevel foraminal stenosis, most severe on the left at C6/C7. Please see individual levels above. 5. No fracture or subluxation of the cervical spine. Angelo Garrido MD Brain MRI 01/23/17 Signed Impressions: Service Date/Time: Monday, January 23, 2017 17:01 - CONCLUSION: 1. No acute stroke or other acute intracranial abnormality demonstrated. 2. Moderate severity chronic white matter changes, nonspecific but most likely related to chronic small vessel disease. 3. Few scattered tiny lacunar infarcts of the brainstem. 4. Given the findings are not entirely specific, clinical evaluation for possible multiple sclerosis recommended. Angelo Garrido MD Head CT 01/22/172202 Signed Impressions: Service Date/Time: Sunday, January 22, 2017 22:39 - CONCLUSION: Negative noncontrast CT Benjamin Person MD Chest X-Ray 01/22/172202 Signed Impressions: Service Date/Time: Sunday, January 22, 2017 22:18 - CONCLUSION: No acute disease. Benjamin Person MD Wrist X-Ray 01/22/172053 Signed Impressions: Service Date/Time: Sunday, January 22, 2017 21:21 - CONCLUSION: 1. Nondisplaced oblique fracture through the distal ulna. 2. Chronic appearing deformity of the distal ulna as well. 3. Extensive degenerative change and osteopenia. Benjamin Person MD Knee X-Ray 01/22/172053 Signed Impressions: Service Date/Time: Sunday, January 22, 2017 21:17 - CONCLUSION: 1. Evidence of moderate to large joint effusion. 2. No acute fracture or malalignment. 3. Mild 3 compartment osteoarthritic change. Benjamin Person MD Hip and Pelvis X-Ray [id number]/22/172053 Signed Impressions: Service Date/Time: Sunday, January 22, 2017 21:10 - CONCLUSION: 1. Mild to moderate degenerative change of both hips with no acute fracture or malalignment. There is flattening and remodeling of the right humeral head. Benjamin Person MD Objective Remarks GENERAL: Well-developed well-nourished. In no acute distress. SKIN: Warm and dry. No lesions noted. HEENT: Normocephalic. Pupils equal and round. Mucous membranes pink and moist. CARDIOVASCULAR: Regular rate and rhythm. No murmur appreciated. RESPIRATORY: No accessory muscle use. Clear to auscultation. Breath sounds equal bilaterally. GASTROINTESTINAL: Abdomen soft, non-tender, nondistended. Bowel sounds x4. MUSCULOSKELETAL: No obvious deformities. No clubbing or cyanosis. No edema. NEUROLOGICAL: Awake and alert. Strength 5/5 in upper extremities, 4/5 in left lower extremity and 3/5 in right lower extremity.. Normal speech. PSYCHIATRIC: Appropriate mood and affect; insight and judgment normal. Procedures IVC filter placement 01/25/2017 LP 01/26/2017 A/P Problem List: (1) Distal end of ulna fracture, closed ICD Code: S52.609A - Unspecified fracture of lower end of unspecified ulna, initial encounter for closed fracture (2) Diabetes mellitus ICD Code: E11.9 - Type 2 diabetes mellitus without complications Assessment and Plan 61-year-old male with history of diabetes mellitus, gouty arthritis, COPD secondary to recurrent nephrolithiasis per the patient, presents with multiple complaints including bilateral lower extremity weakness, falls, right arm pain. Right Distal Ulna Oblique Fracture: RUE xray images reviewed. - consulted ortho, nonsurgical, recommends continuing splint, plan to transition to cast as outpatient - Continue norco prn and IV Dilaudid prn breakthrough pain Acute Renal Failure on CKD stage 3-4: no previous labs to compare. - No prior labs available for comparison Creatinine 3.7 --> 1.64. - avoid nephrotoxins - Renal U/S showed evidence of chronic parenchymal disease both kidneys; no obstructive uropathy - consulted nephrology, appreciate assistance, creatinine has trended down - DC IVF Severe Lumbar Spine Stenosis/probable transverse myelitis/Significant Lower Extremity Weakness and Recurrent Falls: progressive over the past few months, failed outpatient physical therapy and acupuncture - C-spine MRI showed Multilevel cervical spine degenerative changes; Mild degrees of spinal stenosis at C3/C4-C6/C7; No cord compression or cord signal abnormality; Age indeterminate left paracentral/foraminal disc protrusion at C6/ C7; Multilevel foraminal stenosis, most severe on the left at C6/C7; No fracture or subluxation of the cervical spine. - L-spine MRI showed L4-5 broad-based disc protrusion with severe central canal and lateral recess stenosis and flattening of the exiting right L4 nerve root; L5-S1 there is a disc protrusion and moderate stenosis with flattening of the exiting L5 nerve roots bilaterally; At L3-4 there is a moderate to severe central stenosis and lateral recess stenosis with mild foraminal stenosis; No acute fracture or spondylolisthesis. - Brain MRI showed No acute stroke or other acute intracranial abnormality demonstrated; Moderate severity chronic white matter changes, nonspecific but most likely related to chronic small vessel disease; Few scattered tiny lacunar infarcts of the brainstem - Neurology and Neurosurgery consulted. Neurosurgery recommended nonoperative care with further management per neurology and has signed off. Neurology recommends stopping steroids and cleared for discharge from their standpoint. - Received high dose Solu-medrol 250mg Q6hrs X total 5 days, DC and start short prednisone taper - Repeat LP shows clear, previous LP showed blood in the CSF. Bilateral DVT: patient complains of BLE edema and both legs feel "full" and "heavy" - Doppler U/S positive for bilateral DVT. Heparin drip was started but has been on hold. - Patient underwent IVC filter placement on 01/25/2017 - Neurology recommends holding off on anticoagulation due to persistent blood and CSF Type 2 Diabetes Mellitus:Patient takes glipizide at home. - Continue Accu-Cheks before meals and at bedtime with low-dose NovoLog sliding scale coverage - HgbA1c 8.5 - Consulted perioperative educator and weaver dobby loom - Acute hyperglycemia due to steroid. - Increase Levemir to 15 units QHS, continue sliding scale insulin and pre-meal insulin with aspart. - Continue pre-meal insulin aspart 8 units 3 times a day before meals. DVT prophylaxis Heparin subcutaneous Discharge Plan: Due to lack of insurance, it would be difficult to find rehab. The patient is asking to go home with his son who will care for him. Discussed with Dr. Chairez. We'll have case management to assist with DME and outpatient follow-up. Problem Qualifiers (1) Diabetes mellitus: Qualified Codes: E11.9 - Type 2 diabetes mellitus without complications Rodrigo Soria Feb 02, 2017 10:50
[2017-02-02] MEDS ORDERED: TEMAZEPAM 15 MG CAP PO PRN (11:00)
[2017-02-02 11:17] LABS: BICARBONATE 22.7 MEQ/L (21.0-32.0); POTASSIUM 3.6 MEQ/L (3.5-5.1)
--- NOTE | 2017-02-02 17:55 | HHI.PR ---
Review/Management Diagnosis probable transverse myelitis--improved with solumedrol CSF studies with elevated protein and elevated wbc c/w this dx but follow up on oligoclonal bands and myelin basic protein RBC in csf may be due to traumatic tap as the supernatant was clear and not xanthochromic Plan stop steroids ok from neurostandpoint to d/c --possibly to rehab would hold off on anticoagulation given the persistent elevated RBC in the CSF Diagnosis/Plan: Subjective Subjective Comments No acute events reported feels strength is improved after steroids Active Medications Current Medications Medications (Trade) Dose Ordered Sig/Rosalia Route Start Time Stop Time Status Last Admin (NS Flush) 2 ml UNSCH PRN IV FLUSH 01/23/17 00:30 02/01/17 05:07 (NS Flush) 2 ml BID IV FLUSH 01/23/17 09:00 02/01/17 21:00 (Tylenol) 650 mg Q4H PRN PO 01/23/17 00:30 (Zofran Inj) 4 mg Q6H PRN IVP 01/23/17 00:30 ([place] 5-325 Mg) 1 tab Q4H PRN PO 01/23/17 00:30 01/23/17 19:39 ([place] 7.5-325 Mg) 1 tab Q4H PRN PO 01/23/17 00:30 02/01/17 02:10 (Narcan Inj) 0.4 mg UNSCH PRN IV 01/23/17 00:30 (Edna-Colace) 1 tab BID PO 01/23/17 09:00 02/01/17 21:40 (Milk Of Magnesia Liq) 30 ml Q12H PRN PO 01/23/17 00:30 (Senokot) 17.2 mg Q12H PRN PO 01/23/17 00:30 (Dulcolax Supp) 10 mg DAILY PRN RECTAL 01/23/17 00:30 (D50w (Vial) Inj) 50 ml UNSCH PRN IV 01/23/17 07:45 (Glucagon Inj) 1 mg UNSCH PRN OTHER 01/23/17 07:45 (NovoLOG SUPPLEMENTAL SCALE) 1 ACHS SLIDING SCALE SQ 01/23/17 11:00 02/02/17 12:18 (Tenormin) 25 mg DAILY PO 01/24/17 13:00 02/02/17 08:55 (Lipitor) 10 mg HS PO 01/24/17 21:00 02/01/17 21:40 (Catapres) 0.1 mg Q6H PRN PO 01/24/17 18:00 01/28/17 12:34 (Dilaudid Pf Inj) 0.5 mg Q4H PRN IV PUSH 01/26/17 15:00 01/27/17 00:01 (Norvasc) 5 mg DAILY PO 01/28/17 09:00 02/02/17 08:55 (NovoLOG INJ) 8 units TIDAC SQ 01/30/17 12:00 02/02/17 12:18 (Levemir Inj) 15 units HS SQ 02/02/17 21:00 (Restoril) 15 mg HS PRN PO 02/02/17 11:00 (Deltasone) 30 mg BID PO 02/02/17 21:00 02/04/17 20:59 Allergies Allergies Coded Allergies levofloxacin (Verified Allergy, Severe, 01/22/17) Exam I&O / VS 02/02/17 02/02/17 02/03/17 15:00 23:00 07:00 Intake Total 750 ml 240 ml Output Total 240 ml Balance 750 ml 0 ml Intake Oral 240 ml IV Total 750 ml Output Urine Total 240 ml # Voids 1 # Bowel Movements 1 Vital Signs Date Time Temp Pulse Resp B/P (MAP) Pulse Ox O2 Delivery O2 Flow Rate FiO2 02/02/17 16:23 97.3 60 18 139/83 (101) 98 02/02/17 13:59 58 02/02/17 12:13 97.6 61 18 135/78 (97) 97 02/02/17 08:13 97.5 61 17 196/96 (129) 97 02/02/17 04:45 97.9 60 18 174/84 (114) 97 02/02/17 04:00 97.9 60 18 174/84 (114) 97 02/02/17 00:00 97.7 58 18 150/86 (107) 98 02/01/17 20:28 97.7 61 16 148/74 (98) 98 Exam Comments alert, speech normal CN intact MOTOR 5/5 BUE, 5/5 bilateral iliopsoas, 5/5 bilateral quadricep and hamstring and tibialis anterior Arreflexic BUE and BLE Objective Micro and Labs Laboratory Tests Test 02/02/17 10:04 Blood Urea Nitrogen 55 Creatinine 1.64 Random Glucose 309 Calcium Level 7.9 Sodium Level 137 Potassium Level 3.6 Chloride Level 101 Carbon Dioxide Level 22.7 Anion Gap 13 Estimat Glomerular Filtration Rate 43 Date/Time Source Procedure Growth Status 01/22/17 21:05 Blood Peripheral Aerobic Blood Culture - Final NO GROWTH IN 5 DAYS Complete 01/22/17 21:05 Blood Peripheral Anaerobic Blood Culture - Final NO GROWTH IN 5 DAYS Complete 02/01/17 09:55 Cerebral Spinal Fluid Lumbar Puncture Fungal Smear - Final NO FUNGAL ELEMENTS SEEN. Resulted 02/01/17 09:55 Cerebral Spinal Fluid Lumbar Puncture Fungal Culture Pending Resulted Chirag Crenshaw PhD Feb 02, 2017 17:55
[2017-02-02] MEDS ORDERED: predniSONE 10 MG TAB PO SCH (21:00)
[2017-02-02] MEDS: INSULIN DETEMIR 100 UNITS/ML VIAL SQ SCH (21:53)
[2017-02-02] MEDS: ATORVASTATIN 10 MG TAB PO SCH (21:54)
[2017-02-03] VITALS: BP 129/81; PULSE 64; RESP 18; TEMP 97.7; O2SAT 99
[2017-02-03 04:00] VITALS: BP 133/71; PULSE 60; RESP 18; TEMP 97.3; O2SAT 97
[2017-02-03 08:00] VITALS: BP 158/89; PULSE 61; RESP 18; TEMP 97.3; O2SAT 97
[2017-02-03] MEDS: DOCUSATE SODIUM 50 MG/SENNA 8.6 MG TAB PO SCH ×2 (08:14→21:00)
[2017-02-03] MEDS: amLODIPine BESYLATE 5 MG TAB PO SCH (08:14)
[2017-02-03] MEDS: SODIUM CHLORIDE 0.9% FLUSH 10 ML FLUSH IV FLUSH SCH ×2 (08:14→21:18)
[2017-02-03] MEDS: ATENOLOL 25 MG TAB PO SCH (08:14)
[2017-02-03] MEDS: INSULIN ASPART SUPPLEMENTAL SCALE SQ SCH ×4 (08:15→21:00)
[2017-02-03] MEDS: INSULIN ASPART 1,000 UNITS/10 ML VIAL SQ SCH ×3 (08:15→17:10)
--- NOTE | 2017-02-03 11:31 | HHI.PR ---
Subjective Remarks Follow-up for transverse myelitis and weakness. Patient is generalized and has no acute complaints. He states the medication helped him sleep about 3 hours last night. He states he seems to understand the process regarding following up with the community clinic and then outpatient physical therapy. He states his son was in last night and was asking a lot of questions to try to get a better understanding of the care he will need to do for his father at home. Discussed with case management, working on possible wheelchair arrangement. Objective Vitals Vital Signs Date Time Temp Pulse Resp B/P (MAP) Pulse Ox O2 Delivery O2 Flow Rate FiO2 02/03/17 08:00 97.3 61 18 158/89 (112) 97 02/03/17 04:00 97.3 60 18 133/71 (91) 97 02/03/17 00:00 97.7 64 18 129/81 (97) 99 02/02/17 22:00 48 02/02/17 20:00 97.2 71 18 146/90 (108) 98 02/02/17 16:23 97.3 60 18 139/83 (101) 98 02/02/17 13:59 58 02/02/17 12:13 97.6 61 18 135/78 (97) 97 I/O 02/02/17 02/02/17 02/02/17 02/03/17 02/03/17 02/03/17 07:00 15:00 23:00 07:00 15:00 23:00 Intake Total 750 ml 240 ml Output Total 600 ml 240 ml 450 ml Balance -600 ml 750 ml 0 ml -450 ml Intake Oral 240 ml IV Total 750 ml Output Urine Total 600 ml 240 ml 450 ml # Voids 1 2 # Bowel Movements 0 1 Result Diagram: 02/01/17 1121 02/02/17 1004 Imaging Last Impressions Lumbar Puncture Fluoroscopy 02/01/17 0000 Signed Impressions: Service Date/Time: January 09:35 - CONCLUSION: Uncomplicated fluoroscopically guided lumbar puncture. CSF was clear. Nabeel Peralta MD Head Magnetic Resonance Angiography 01/27/17 0000 Signed Impressions: Service Date/Time: Friday, January 27, 2017 10:33 - CONCLUSION: No intracranial vascular abnormality is identified. There is no aneurysm visualized. Angelo Allen MD IVC Filter Placement X-Ray 9/7/17 0000 Signed Impressions: Service Date/Time: January 10:29 - CONCLUSION: Uncomplicated inferior vena cava filter placement as above. Yugn Fowler MD Thoracic Spine MRI 01/24/17 Signed Impressions: Service Date/Time: Tuesday, January 24, 2017 22:29 - CONCLUSION: 1. Mild degenerative spondylosis most prominently at T11-L1 with slight effacement of the anterior thecal sac and left lateral recess. No significant neural foraminal stenosis. 2. No acute fracture. Juan Bhakta MD Renal Ultrasound 01/23/17 Signed Impressions: Service Date/Time: Monday, January 23, 2017 08:53 - CONCLUSION: 1. Evidence of chronic parenchymal disease of both kidneys. No obstructive uropathy or other acute abnormality demonstrated. 2. Trace ascites, nonspecific. Angelo Garrido MD Lumbar Spine MRI 01/23/17 Signed Impressions: Service Date/Time: Monday, January 23, 2017 17:01 - CONCLUSION: 1. At L4-5 is a broad-based disc protrusion with severe central canal and lateral recess stenosis and flattening of the exiting right L4 nerve root. 2. L5-S1 there is a disc protrusion and moderate stenosis with flattening of the exiting L5 nerve roots bilaterally. 3. At L3-4 there is a moderate to severe central stenosis and lateral recess stenosis with mild foraminal stenosis. 4. No acute fracture or spondylolisthesis. Trace Holloway MD Lower Extremity Ultrasound 01/23/17 Signed Impressions: Service Date/Time: Monday, January 23, 2017 09:53 - CONCLUSION: Bilateral focal lower extremity DVT involving the posterior tibial veins. Angelo Garrido MD Cervical Spine MRI 01/23/17 Signed Impressions: Service Date/Time: Monday, January 23, 2017 17:01 - CONCLUSION: 1. Multilevel cervical spine degenerative changes as above. 2. Mild degrees of spinal stenosis at C3/C4-C6/C7. No cord compression or cord signal abnormality. 3. Age indeterminate left paracentral/foraminal disc protrusion at C6/C7. 4. Multilevel foraminal stenosis, most severe on the left at C6/C7. Please see individual levels above. 5. No fracture or subluxation of the cervical spine. Angelo Garrido MD Brain MRI 01/23/17 0000 Signed Impressions: Service Date/Time: Monday, January 23, 2017 17:01 - CONCLUSION: 1. No acute stroke or other acute intracranial abnormality demonstrated. 2. Moderate severity chronic white matter changes, nonspecific but most likely related to chronic small vessel disease. 3. Few scattered tiny lacunar infarcts of the brainstem. 4. Given the findings are not entirely specific, clinical evaluation for possible multiple sclerosis recommended. Angelo Garrido MD Head CT 01/22/172202 Signed Impressions: Service Date/Time: Sunday, January 22, 2017 22:39 - CONCLUSION: Negative noncontrast CT Benjamin Person MD Chest X-Ray 01/22/172202 Signed Impressions: Service Date/Time: Sunday, January 22, 2017 22:18 - CONCLUSION: No acute disease. Benjamin Person MD Wrist X-Ray 01/22/172053 Signed Impressions: Service Date/Time: Sunday, January 22, 2017 21:21 - CONCLUSION: 1. Nondisplaced oblique fracture through the distal ulna. 2. Chronic appearing deformity of the distal ulna as well. 3. Extensive degenerative change and osteopenia. Benjamin Person MD Knee X-Ray 01/22/172053 Signed Impressions: Service Date/Time: Sunday, January 22, 2017 21:17 - CONCLUSION: 1. Evidence of moderate to large joint effusion. 2. No acute fracture or malalignment. 3. Mild 3 compartment osteoarthritic change. Benjamin Person MD Hip and Pelvis X-Ray 01/22/172053 Signed Impressions: Service Date/Time: Sunday, January 22, 2017 21:10 - CONCLUSION: 1. Mild to moderate degenerative change of both hips with no acute fracture or malalignment. There is flattening and remodeling of the right humeral head. Benjamin Person MD Objective Remarks GENERAL: Well-developed well-nourished. In no acute distress. SKIN: Warm and dry. No lesions noted. HEENT: Normocephalic. Pupils equal and round. Mucous membranes pink and moist. CARDIOVASCULAR: Regular rate and rhythm. No murmur appreciated. RESPIRATORY: No accessory muscle use. Clear to auscultation. Breath sounds equal bilaterally. GASTROINTESTINAL: Abdomen soft, non-tender, nondistended. Bowel sounds x4. MUSCULOSKELETAL: No obvious deformities. No clubbing or cyanosis. No edema. NEUROLOGICAL: Awake and alert. Strength 5/5 in upper extremities, 4/5 in left lower extremity and 3/5 in right lower extremity. Normal speech. PSYCHIATRIC: Appropriate mood and affect; insight and judgment normal. Procedures IVC filter placement 01/25/2017 LP 01/26/2017 A/P Problem List: (1) Distal end of ulna fracture, closed ICD Code: S52.609A - Unspecified fracture of lower end of unspecified ulna, initial encounter for closed fracture (2) Diabetes mellitus ICD Code: E11.9 - Type 2 diabetes mellitus without complications Assessment and Plan 61-year-old male with history of diabetes mellitus, gouty arthritis, COPD secondary to recurrent nephrolithiasis per the patient, presents with multiple complaints including bilateral lower extremity weakness, falls, right arm pain. Right Distal Ulna Oblique Fracture: RUE xray images reviewed. - consulted ortho, nonsurgical, recommends continuing splint, plan to transition to cast as outpatient - Continue norco prn pain Acute Renal Failure on CKD stage 3-4: no previous labs to compare. - No prior labs available for comparison Creatinine 3.7 --> 1.64. - avoid nephrotoxins - Renal U/S showed evidence of chronic parenchymal disease both kidneys; no obstructive uropathy - consulted nephrology, appreciate assistance, creatinine has trended down Severe Lumbar Spine Stenosis/probable transverse myelitis/Significant Lower Extremity Weakness and Recurrent Falls: progressive over the past few months, failed outpatient physical therapy and acupuncture - C-spine MRI showed Multilevel cervical spine degenerative changes; Mild degrees of spinal stenosis at C3/C4-C6/C7; No cord compression or cord signal abnormality; Age indeterminate left paracentral/foraminal disc protrusion at C6/ C7; Multilevel foraminal stenosis, most severe on the left at C6/C7; No fracture or subluxation of the cervical spine. - L-spine MRI showed L4-5 broad-based disc protrusion with severe central canal and lateral recess stenosis and flattening of the exiting right L4 nerve root; L5-S1 there is a disc protrusion and moderate stenosis with flattening of the exiting L5 nerve roots bilaterally; At L3-4 there is a moderate to severe central stenosis and lateral recess stenosis with mild foraminal stenosis; No acute fracture or spondylolisthesis. - Brain MRI showed No acute stroke or other acute intracranial abnormality demonstrated; Moderate severity chronic white matter changes, nonspecific but most likely related to chronic small vessel disease; Few scattered tiny lacunar infarcts of the brainstem - Neurology and Neurosurgery consulted. Neurosurgery recommended nonoperative care with further management per neurology and has signed off. Neurology recommends stopping steroids and cleared for discharge from their standpoint. - Received high dose Solu-medrol 250mg Q6hrs X total 5 days, recommended to DC per neurology - Repeat LP shows mostly clear, previous LP showed blood in the CSF. Bilateral DVT: patient complains of BLE edema and both legs feel "full" and "heavy" - Doppler U/S positive for bilateral DVT. Heparin drip was started but has been on hold. - Patient underwent IVC filter placement on 01/25/2017 - Neurology recommends holding off on anticoagulation due to persistent blood and CSF Type 2 Diabetes Mellitus:Patient takes glipizide at home. - Continue Accu-Cheks before meals and at bedtime with low-dose NovoLog sliding scale coverage - HgbA1c 8.5 - Consulted clinical nurse educator and hse manager - Acute hyperglycemia due to steroid. - Increased Levemir to 15 units QHS, with better control overnight - Continue sliding scale insulin and pre-meal insulin with aspart. - Continue pre-meal insulin aspart 8 units 3 times a day before meals. - Expect sugars will improve and on the steroid discontinued. DVT prophylaxis Heparin subcutaneous Discharge Plan: Due to lack of insurance, it would be difficult to find rehab. The patient is asking to go home with his son who will care for him. Discussed with Dr. Chairez. We'll have case management to assist with DME and outpatient follow-up. Discharge Planning The patient would rather go home than wait for rehabilitation placement. If wheelchair arranged and patient's son is willing to care for him at home, then the patient could be discharged. Problem Qualifiers (1) Diabetes mellitus: Qualified Codes: E11.9 - Type 2 diabetes mellitus without complications Rodrigo Soria Feb 03, 2017 11:31
[2017-02-03 12:00] VITALS: BP 147/86; PULSE 58; RESP 17; TEMP 97.3; O2SAT 97
[2017-02-03 16:00] VITALS: BP 152/89; PULSE 61; RESP 19; TEMP 97.4; O2SAT 96
[2017-02-03 17:19] LABS: ALBUMIN SERUM 2310 mg/dL (3200 - 4800); IGG CSF 10.6 mg/dL (<=8.1); IGG INDEX CSF 0.59 (<=0.85); IGG SERUM 621 mg/dL (767 - 1590); IGG/ALBUMIN CSF 0.16 (<=0.21); IGG/ALBUMIN SERUM 0.27 (<=0.40); OLIGOCLONAL BANDING CSF 5 bands; OLIGOCLONAL BANDING INTERPRET 0 bands (<4); OLIGOCLONAL BANDING SERUM 5 bands; SYNTHESIS RATE CSF 13.42 mg/24 h (<=12)
[2017-02-03 19:54] LABS: VDRL CSF NON-REACTIVE (())
[2017-02-03 20:00] VITALS: BP 124/77; PULSE 72; RESP 20; TEMP 97.6; O2SAT 92
[2017-02-03] MEDS: INSULIN DETEMIR 100 UNITS/ML VIAL SQ SCH (21:18)
[2017-02-03] MEDS: ACETAMINOPHEN/HYDROcodone 325 MG/7.5 MG TAB PO PRN (21:19)
[2017-02-03] MEDS: ATORVASTATIN 10 MG TAB PO SCH (21:20)
[2017-02-03] MEDS: TEMAZEPAM 15 MG CAP PO PRN (23:41)
[2017-02-04] VITALS: BP 137/77; PULSE 74; RESP 20; TEMP 97.8; O2SAT 96
[2017-02-04] MEDS: ACETAMINOPHEN/HYDROcodone 325 MG/5 MG TAB PO PRN (02:24)
[2017-02-04 04:00] VITALS: BP 132/75; PULSE 73; RESP 20; TEMP 97.8; O2SAT 96
[2017-02-04] MEDS: ACETAMINOPHEN/HYDROcodone 325 MG/7.5 MG TAB PO PRN ×3 (06:16→20:58)
[2017-02-04 08:00] VITALS: PULSE 71
[2017-02-04] MEDS: INSULIN ASPART 1,000 UNITS/10 ML VIAL SQ SCH ×3 (08:00→19:07)
[2017-02-04] MEDS: INSULIN ASPART SUPPLEMENTAL SCALE SQ SCH ×4 (08:00→20:57)
[2017-02-04 08:36] VITALS: BP 163/44; PULSE 68; RESP 20; TEMP 98.4; O2SAT 99
[2017-02-04] MEDS: amLODIPine BESYLATE 5 MG TAB PO SCH (08:46)
[2017-02-04] MEDS: ATENOLOL 25 MG TAB PO SCH (08:46)
[2017-02-04] MEDS: SODIUM CHLORIDE 0.9% FLUSH 10 ML FLUSH IV FLUSH SCH ×2 (08:50→20:54)
[2017-02-04] MEDS: DOCUSATE SODIUM 50 MG/SENNA 8.6 MG TAB PO SCH ×2 (08:53→20:59)
[2017-02-04 10:32] LABS: HEMATOCRIT 38.9 % (39.0-51.0); MEAN CELL VOLUME 82.4 FL (80.0-100.0); MEAN CORPUSCULAR HGB CONC 31.6 % (32.0-36.0); PLATELET COUNT 365 TH/MM3 (150-450); RED BLOOD COUNT 4.72 MIL/MM3 (4.50-5.90); RED CELL DISTRIBUTION WIDTH 17.5 % (11.6-17.2); REVIEW FLAG FINAL; WHITE BLOOD COUNT 19.3 TH/MM3 (4.0-11.0)
[2017-02-04 10:34] LABS: CSF CRYPTOCOCCUS AG CONF ND (NOT DETECTD)
[2017-02-04 12:00] VITALS: BP 112/57; PULSE 70; RESP 20; TEMP 98.3; O2SAT 94
--- NOTE | 2017-02-04 14:25 | HHI.PR ---
Subjective Remarks Follow-up for transverse myelitis and weakness. Patient is doing well. He wants to go home. He will contact his son. If everything is arranged, he might go today or tomorrow. Objective Vitals Vital Signs Date Time Temp Pulse Resp B/P (MAP) Pulse Ox O2 Delivery O2 Flow Rate FiO2 02/04/17 08:36 98.4 68 20 163/44 (83) 99 02/04/17 08:00 71 02/04/17 04:00 97.8 73 20 132/75 (94) 96 02/04/17 00:00 97.8 74 20 137/77 (97) 96 02/03/17 20:00 97.6 72 20 124/77 (93) 92 02/03/17 16:00 97.4 61 19 152/89 (110) 96 I/O 02/03/17 02/03/17 02/03/17 02/04/17 02/04/17 02/04/17 07:00 15:00 23:00 07:00 15:00 23:00 Intake Total 480 ml Output Total 450 ml 1025 ml 600 ml Balance -450 ml -1025 ml -120 ml Intake Oral 480 ml Output Urine Total 450 ml 1025 ml 600 ml # Voids 2 # Bowel Movements 0 1 Result Diagram: 02/04/17 0955 02/02/17 1004 Imaging Last Impressions Lumbar Puncture Fluoroscopy 02/01/17 0000 Signed Impressions: Service Date/Time: January 09:35 - CONCLUSION: Uncomplicated fluoroscopically guided lumbar puncture. CSF was clear. Nabeel Peralta MD Head Magnetic Resonance Angiography 01/27/17 0000 Signed Impressions: Service Date/Time: Friday, January 27, 2017 10:33 - CONCLUSION: No intracranial vascular abnormality is identified. There is no aneurysm visualized. Angelo Allen MD IVC Filter Placement X-Ray 01/25/17 0000 Signed Impressions: Service Date/Time: January 10:29 - CONCLUSION: Uncomplicated inferior vena cava filter placement as above. Yung Fowler MD Thoracic Spine MRI 01/24/17 0000 Signed Impressions: Service Date/Time: Tuesday, January 24, 2017 22:29 - CONCLUSION: 1. Mild degenerative spondylosis most prominently at T11-L1 with slight effacement of the anterior thecal sac and left lateral recess. No significant neural foraminal stenosis. 2. No acute fracture. Juan Bhakta MD Renal Ultrasound 01/23/17 Signed Impressions: Service Date/Time: Monday, January 23, 2017 08:53 - CONCLUSION: 1. Evidence of chronic parenchymal disease of both kidneys. No obstructive uropathy or other acute abnormality demonstrated. 2. Trace ascites, nonspecific. Angelo Garrido MD Lumbar Spine MRI 01/23/17 Signed Impressions: Service Date/Time: Monday, January 23, 2017 17:01 - CONCLUSION: 1. At L4-5 is a broad-based disc protrusion with severe central canal and lateral recess stenosis and flattening of the exiting right L4 nerve root. 2. L5-S1 there is a disc protrusion and moderate stenosis with flattening of the exiting L5 nerve roots bilaterally. 3. At L3-4 there is a moderate to severe central stenosis and lateral recess stenosis with mild foraminal stenosis. 4. No acute fracture or spondylolisthesis. Trace Holloway MD Lower Extremity Ultrasound 01/23/17 Signed Impressions: Service Date/Time: Monday, January 23, 2017 09:53 - CONCLUSION: Bilateral focal lower extremity DVT involving the posterior tibial veins. Angelo Garrido MD Cervical Spine MRI 01/23/17 Signed Impressions: Service Date/Time: Monday, January 23, 2017 17:01 - CONCLUSION: 1. Multilevel cervical spine degenerative changes as above. 2. Mild degrees of spinal stenosis at C3/C4-C6/C7. No cord compression or cord signal abnormality. 3. Age indeterminate left paracentral/foraminal disc protrusion at C6/C7. 4. Multilevel foraminal stenosis, most severe on the left at C6/C7. Please see individual levels above. 5. No fracture or subluxation of the cervical spine. Angelo Garrido MD Brain MRI 01/23/17 Signed Impressions: Service Date/Time: Monday, January 23, 2017 17:01 - CONCLUSION: 1. No acute stroke or other acute intracranial abnormality demonstrated. 2. Moderate severity chronic white matter changes, nonspecific but most likely related to chronic small vessel disease. 3. Few scattered tiny lacunar infarcts of the brainstem. 4. Given the findings are not entirely specific, clinical evaluation for possible multiple sclerosis recommended. Angelo Garirdo MD Head CT 01/22/172202 Signed Impressions: Service Date/Time: Sunday, January 22, 2017 22:39 - CONCLUSION: Negative noncontrast CT Benjamin Person MD Chest X-Ray 01/22/172202 Signed Impressions: Service Date/Time: Sunday, January 22, 2017 22:18 - CONCLUSION: No acute disease. Benjamin Person MD Wrist X-Ray 01/22/172053 Signed Impressions: Service Date/Time: Sunday, January 22, 2017 21:21 - CONCLUSION: 1. Nondisplaced oblique fracture through the distal ulna. 2. Chronic appearing deformity of the distal ulna as well. 3. Extensive degenerative change and osteopenia. Benjamin Person MD Knee X-Ray 01/22/172053 Signed Impressions: Service Date/Time: Sunday, January 22, 2017 21:17 - CONCLUSION: 1. Evidence of moderate to large joint effusion. 2. No acute fracture or malalignment. 3. Mild 3 compartment osteoarthritic change. Benjamin Person MD Hip and Pelvis X-Ray 01/22/172053 Signed Impressions: Service Date/Time: Sunday, January 22, 2017 21:10 - CONCLUSION: 1. Mild to moderate degenerative change of both hips with no acute fracture or malalignment. There is flattening and remodeling of the right humeral head. Benjamin Person MD Objective Remarks GENERAL: Alert, NAD. SKIN: Warm and dry. HEAD: Normocephalic. EYES: No scleral icterus. No injection or drainage. NECK: Supple, trachea midline. No JVD or lymphadenopathy. CARDIOVASCULAR: Regular rate and rhythm without murmurs, gallops, or rubs. RESPIRATORY: Breath sounds equal bilaterally. No accessory muscle use. GASTROINTESTINAL: Abdomen soft, non-tender, nondistended. MUSCULOSKELETAL: No cyanosis, or edema. 3/5 lower ext strength, 4/5 upper ext. BACK: Nontender without obvious deformity. No CVA tenderness. Procedures IVC filter placement 01/25/2017 LP 01/26/2017 A/P Problem List: (1) Distal end of ulna fracture, closed ICD Code: S52.609A - Unspecified fracture of lower end of unspecified ulna, initial encounter for closed fracture (2) Diabetes mellitus ICD Code: E11.9 - Type 2 diabetes mellitus without complications Assessment and Plan 61-year-old male with history of diabetes mellitus, gouty arthritis, COPD secondary to recurrent nephrolithiasis per the patient, presents with multiple complaints including bilateral lower extremity weakness, falls, right arm pain. Right Distal Ulna Oblique Fracture: RUE xray images reviewed. - consulted ortho, nonsurgical, recommends continuing splint, plan to transition to cast as outpatient - Continue norco prn pain Acute Renal Failure on CKD stage 3-4: no previous labs to compare. - No prior labs available for comparison Creatinine 3.7 --> 1.64. - avoid nephrotoxins - Renal U/S showed evidence of chronic parenchymal disease both kidneys; no obstructive uropathy - consulted nephrology, appreciate assistance, creatinine has trended down Severe Lumbar Spine Stenosis/probable transverse myelitis/Significant Lower Extremity Weakness and Recurrent Falls: progressive over the past few months, failed outpatient physical therapy and acupuncture - C-spine MRI showed Multilevel cervical spine degenerative changes; Mild degrees of spinal stenosis at C3/C4-C6/C7; No cord compression or cord signal abnormality; Age indeterminate left paracentral/foraminal disc protrusion at C6/ C7; Multilevel foraminal stenosis, most severe on the left at C6/C7; No fracture or subluxation of the cervical spine. - L-spine MRI showed L4-5 broad-based disc protrusion with severe central canal and lateral recess stenosis and flattening of the exiting right L4 nerve root; L5-S1 there is a disc protrusion and moderate stenosis with flattening of the exiting L5 nerve roots bilaterally; At L3-4 there is a moderate to severe central stenosis and lateral recess stenosis with mild foraminal stenosis; No acute fracture or spondylolisthesis. - Brain MRI showed No acute stroke or other acute intracranial abnormality demonstrated; Moderate severity chronic white matter changes, nonspecific but most likely related to chronic small vessel disease; Few scattered tiny lacunar infarcts of the brainstem - Neurology and Neurosurgery consulted. Neurosurgery recommended nonoperative care with further management per neurology and has signed off. Neurology recommends stopping steroids and cleared for discharge from their standpoint. - Received high dose Solu-medrol 250mg Q6hrs X total 5 days, recommended to DC per neurology - Repeat LP shows mostly clear, previous LP showed blood in the CSF. Bilateral DVT: patient complains of BLE edema and both legs feel "full" and "heavy" - Doppler U/S positive for bilateral DVT. Heparin drip was started but has been on hold. - Patient underwent IVC filter placement on 01/25/2017 - Neurology recommends holding off on anticoagulation due to persistent blood and CSF Type 2 Diabetes Mellitus:Patient takes glipizide at home. - Continue Accu-Cheks before meals and at bedtime with low-dose NovoLog sliding scale coverage - HgbA1c 8.5 - Consulted category analyst and sap senior developer - Acute hyperglycemia due to steroid. - Increased Levemir to 15 units QHS, with better control overnight - Continue sliding scale insulin and pre-meal insulin with aspart. - Continue pre-meal insulin aspart 8 units 3 times a day before meals. - Expect sugars will improve and on the steroid discontinued. DVT prophylaxis Heparin subcutaneous Discharge plan: Patient will discuss with his son. If everything is ready at home, patient can be discharged today or tomorrow. Problem Qualifiers (1) Diabetes mellitus: Qualified Codes: E11.9 - Type 2 diabetes mellitus without complications Kathryn Chairez DO Feb 04, 2017 2:25 pm
[2017-02-04] MEDS: ATORVASTATIN 10 MG TAB PO SCH (20:53)
[2017-02-04] MEDS: INSULIN DETEMIR 100 UNITS/ML VIAL SQ SCH (20:55)
[2017-02-04 21:18] VITALS: BP 117/65; PULSE 74; RESP 20; TEMP 98.1; O2SAT 97
[2017-02-05] MEDS: TEMAZEPAM 15 MG CAP PO PRN (00:34)
[2017-02-05] MEDS: ACETAMINOPHEN/HYDROcodone 325 MG/7.5 MG TAB PO PRN ×3 (00:42→21:36)
[2017-02-05 01:01] VITALS: BP 113/59; PULSE 80; RESP 20; TEMP 97.6; O2SAT 97
[2017-02-05 04:54] VITALS: BP 105/59; PULSE 82; RESP 20; TEMP 97.9; O2SAT 97
[2017-02-05 08:00] VITALS: BP 129/82; PULSE 88; RESP 18; TEMP 97.1; O2SAT 97
[2017-02-05] MEDS: INSULIN ASPART 1,000 UNITS/10 ML VIAL SQ SCH ×3 (08:00→12:50)
[2017-02-05] MEDS: INSULIN ASPART SUPPLEMENTAL SCALE SQ SCH ×4 (08:00→21:38)
[2017-02-05] MEDS: DOCUSATE SODIUM 50 MG/SENNA 8.6 MG TAB PO SCH ×2 (09:00→21:00)
[2017-02-05] MEDS: ATENOLOL 25 MG TAB PO SCH (09:37)
[2017-02-05] MEDS: SODIUM CHLORIDE 0.9% FLUSH 10 ML FLUSH IV FLUSH SCH ×2 (09:37→21:36)
[2017-02-05] MEDS: amLODIPine BESYLATE 5 MG TAB PO SCH (09:37)
[2017-02-05] MEDS ORDERED: HYDR-3580 PO (10:27)
[2017-02-05] MEDS ORDERED: AMLO5 PO (10:27)
--- NOTE | 2017-02-05 10:27 | HHI.DS ---
Discharge Summary Admission Date Jan 24, 2017 at 15:59 Discharge Date: Feb 05, 2017 Admitting Diagnosis sepsis, acute on chronic renal failure, right distal ulnar fracture (1) Distal end of ulna fracture, closed ICD Code: S52.609A - Unspecified fracture of lower end of unspecified ulna, initial encounter for closed fracture (2) Diabetes mellitus ICD Code: E11.9 - Type 2 diabetes mellitus without complications Procedures IVC filter placement 01/25/2017 LP 01/26/2017 Brief History - From Admission Written by Evelyne Tay, acting as scribe for Dr. Chakraborty on 01/23/17 at 04:07. The patient says he fell last week and severe pain was noted in right wrist. He also reports painful bilateral lower extremities. He denies any history of psoriasis but reports a history of diabetes and gouty arthritis. He denies any heart disease. He reports hypertension and hyperlipidemia. He reports weakness with loss of appetite. He denies fever, chills, or recent illness. Denies a history of CHF. He reports chronic kidney disease - in 2004 had multiple kidney stones - about 50 - and in 2007, he developed renal failure. CBC/BMP: 02/04/17 0955 02/02/17 1004 Significant Findings Laboratory Tests Test 02/04/17 09:55 White Blood Count 19.3 TH/MM3 (4.0-11.0) Hemoglobin 12.3 GM/DL (13.0-17.0) Hematocrit 38.9 % (39.0-51.0) Mean Corpuscular Hemoglobin 26.0 PG (27.0-34.0) Mean Corpuscular Hemoglobin Concent 31.6 % (32.0-36.0) Red Cell Distribution Width 17.5 % (11.6-17.2) Imaging Last Impressions Lumbar Puncture Fluoroscopy 02/01/17 0000 Signed Impressions: Service Date/Time: January 09:35 - CONCLUSION: Uncomplicated fluoroscopically guided lumbar puncture. CSF was clear. Nabeel Peralta MD Head Magnetic Resonance Angiography 01/27/17 0000 Signed Impressions: Service Date/Time: Friday, January 27, 2017 10:33 - CONCLUSION: No intracranial vascular abnormality is identified. There is no aneurysm visualized. Angelo Allen MD IVC Filter Placement X-Ray 01/25/17 Signed Impressions: Service Date/Time: January 10:29 - CONCLUSION: Uncomplicated inferior vena cava filter placement as above. Yung Fowler MD Thoracic Spine MRI 01/24/17 Signed Impressions: Service Date/Time: Tuesday, January 24, 2017 22:29 - CONCLUSION: 1. Mild degenerative spondylosis most prominently at T11-L1 with slight effacement of the anterior thecal sac and left lateral recess. No significant neural foraminal stenosis. 2. No acute fracture. Juan Bhakta MD Renal Ultrasound 01/23/17 Signed Impressions: Service Date/Time: Monday, January 23, 2017 08:53 - CONCLUSION: 1. Evidence of chronic parenchymal disease of both kidneys. No obstructive uropathy or other acute abnormality demonstrated. 2. Trace ascites, nonspecific. Angelo Garrido MD Lumbar Spine MRI 01/23/17 Signed Impressions: Service Date/Time: Monday, January 23, 2017 17:01 - CONCLUSION: 1. At L4-5 is a broad-based disc protrusion with severe central canal and lateral recess stenosis and flattening of the exiting right L4 nerve root. 2. L5-S1 there is a disc protrusion and moderate stenosis with flattening of the exiting L5 nerve roots bilaterally. 3. At L3-4 there is a moderate to severe central stenosis and lateral recess stenosis with mild foraminal stenosis. 4. No acute fracture or spondylolisthesis. Trace Holloway MD Lower Extremity Ultrasound 01/23/17 Signed Impressions: Service Date/Time: Monday, January 23, 2017 09:53 - CONCLUSION: Bilateral focal lower extremity DVT involving the posterior tibial veins. Angelo Garrido MD Cervical Spine MRI 01/23/17 Signed Impressions: Service Date/Time: Monday, January 23, 2017 17:01 - CONCLUSION: 1. Multilevel cervical spine degenerative changes as above. 2. Mild degrees of spinal stenosis at C3/C4-C6/C7. No cord compression or cord signal abnormality. 3. Age indeterminate left paracentral/foraminal disc protrusion at C6/C7. 4. Multilevel foraminal stenosis, most severe on the left at C6/C7. Please see individual levels above. 5. No fracture or subluxation of the cervical spine. Angelo Garrido MD Brain MRI 01/23/17 0000 Signed Impressions: Service Date/Time: Monday, January 23, 2017 17:01 - CONCLUSION: 1. No acute stroke or other acute intracranial abnormality demonstrated. 2. Moderate severity chronic white matter changes, nonspecific but most likely related to chronic small vessel disease. 3. Few scattered tiny lacunar infarcts of the brainstem. 4. Given the findings are not entirely specific, clinical evaluation for possible multiple sclerosis recommended. Angelo Garrido MD Head CT 01/22/172202 Signed Impressions: Service Date/Time: Sunday, January 22, 2017 22:39 - CONCLUSION: Negative noncontrast CT Benjamin Person MD Chest X-Ray 01/22/172202 Signed Impressions: Service Date/Time: Sunday, January 22, 2017 22:18 - CONCLUSION: No acute disease. Benjamin Person MD Wrist X-Ray 01/22/172053 Signed Impressions: Service Date/Time: Sunday, January 22, 2017 21:21 - CONCLUSION: 1. Nondisplaced oblique fracture through the distal ulna. 2. Chronic appearing deformity of the distal ulna as well. 3. Extensive degenerative change and osteopenia. Benjamin Person MD Knee X-Ray 01/22/172053 Signed Impressions: Service Date/Time: Sunday, January 22, 2017 21:17 - CONCLUSION: 1. Evidence of moderate to large joint effusion. 2. No acute fracture or malalignment. 3. Mild 3 compartment osteoarthritic change. Benjamin Person MD Hip and Pelvis X-Ray 01/22/172053 Signed Impressions: Service Date/Time: Sunday, January 22, 2017 21:10 - CONCLUSION: 1. Mild to moderate degenerative change of both hips with no acute fracture or malalignment. There is flattening and remodeling of the right humeral head. Benjamin Person MD PE at Discharge GENERAL: Well-developed well-nourished. In no acute distress. SKIN: Warm and dry. No lesions noted. HEENT: Normocephalic. Pupils equal and round. Mucous membranes pink and moist. CARDIOVASCULAR: Regular rate and rhythm. No murmur appreciated. RESPIRATORY: No accessory muscle use. Clear to auscultation. Breath sounds equal bilaterally. GASTROINTESTINAL: Abdomen soft, non-tender, nondistended. Bowel sounds x4. MUSCULOSKELETAL: No obvious deformities. No clubbing or cyanosis. No edema. NEUROLOGICAL: Awake and alert. Strength 5/5 in upper extremities, 4/5 in left lower extremity and 3/5 in right lower extremity. Normal speech. PSYCHIATRIC: Appropriate mood and affect; insight and judgment normal. Pt Condition on Discharge: Good Discharge Disposition: Discharge Home Discharge Time: > 30 minutes Discharge Instructions DIET: Follow Instructions for: Diabetic Diet Activities you can perform: Regular-No Restrictions New Medications: Commode 3-in-1 (Commode 3-in-1) 1 Mis Mis EA .ROUTE DIRECTED, #1 0 Refills Wheelchair Elevated Leg (Wheelchair Elevated Leg) 1 Mis Mis EA DIRECTED, #1 0 Refills Amlodipine (Norvasc) 5 Mg Tab 5 MG PO DAILY for Blood Pressure Management, #90 TAB Hydrocodone-Acetaminophen (Hydrocodone-Acetaminophen) 7.5-325 mg Tab 1 TAB PO Q4H PRN for PAIN SCALE 6 TO 10, #30 TAB Continued Medications: Atenolol (Atenolol) 25 Mg Tab 25 MG PO DAILY for Blood Pressure Management, #30 TAB Atorvastatin (Atorvastatin) 10 Mg Tab 10 MG PO HS for Cholesterol Management, #30 TAB 0 Refills Glipizide (Glipizide) 5 Mg Tab 5 MG PO BIDAC for Blood Sugar Management, #60 TAB 0 Refills Take 30 minutes before a meal Discontinued Medications: Amlodipine (Amlodipine) 10 Mg Tab 10 MG PO DAILY for Blood Pressure Management, #30 TAB 0 Refills Prednisone (Prednisone) 10 Mg Tab 10 MG PO DAILY, TAB 0 Refills Tramadol (Tramadol) 50 Mg Tab 50 MG PO Q6H PRN for PAIN SCALE 1 TO 10, TAB 0 Refills Kathryn Chairez DO Feb 05, 2017 10:27
[2017-02-05 12:00] VITALS: BP 113/71; PULSE 89; RESP 18; TEMP 97.5; O2SAT 98
[2017-02-05 16:00] VITALS: BP 121/70; PULSE 81; RESP 18; TEMP 98; O2SAT 100
--- NOTE | 2017-02-05 16:52 | HHI.PR ---
Subjective Remarks Follow-up for transverse myelitis and weakness. Patient is resting in bed. He wants to go home with his son around 4PM. We discharged patient. However, there is a significant concern that patient's son may not be able to take care of him at this point. Patient requires significant assistance. Objective Vitals Vital Signs Date Time Temp Pulse Resp B/P (MAP) Pulse Ox O2 Delivery O2 Flow Rate FiO2 02/05/17 12:00 97.5 89 18 113/71 (85) 98 02/05/17 08:00 97.1 88 18 129/82 (98) 97 02/05/17 04:54 97.9 82 20 105/59 (74) 97 02/05/17 01:01 97.6 80 20 113/59 (77) 97 02/04/17 21:18 98.1 74 20 117/65 (82) 97 I/O 02/04/17 02/04/17 02/04/17 02/05/17 02/05/17 02/05/17 07:00 15:00 23:00 07:00 15:00 23:00 Output Total 200 ml 500 ml Balance -200 ml -500 ml Output Urine Total 200 ml 500 ml Result Diagram: 02/04/17 0955 02/02/17 1004 Objective Remarks GENERAL: Alert, NAD. SKIN: Warm and dry. HEAD: Normocephalic. EYES: No scleral icterus. No injection or drainage. NECK: Supple, trachea midline. No JVD or lymphadenopathy. CARDIOVASCULAR: Regular rate and rhythm without murmurs, gallops, or rubs. RESPIRATORY: Breath sounds equal bilaterally. No accessory muscle use. GASTROINTESTINAL: Abdomen soft, non-tender, nondistended. MUSCULOSKELETAL: No cyanosis, or edema. 3/5 lower ext strength, 4/5 upper ext. BACK: Nontender without obvious deformity. No CVA tenderness. Procedures IVC filter placement 01/25/2017 LP 01/26/2017 A/P Problem List: (1) Distal end of ulna fracture, closed ICD Code: S52.609A - Unspecified fracture of lower end of unspecified ulna, initial encounter for closed fracture (2) Diabetes mellitus ICD Code: E11.9 - Type 2 diabetes mellitus without complications Assessment and Plan 61-year-old male with history of diabetes mellitus, gouty arthritis, COPD secondary to recurrent nephrolithiasis per the patient, presents with multiple complaints including bilateral lower extremity weakness, falls, right arm pain. Right Distal Ulna Oblique Fracture: RUE xray images reviewed. - consulted ortho, nonsurgical, recommends continuing splint, plan to transition to cast as outpatient - Continue norco prn pain Acute Renal Failure on CKD stage 3-4: no previous labs to compare. - No prior labs available for comparison Creatinine 3.7 --> 1.64. - avoid nephrotoxins - Renal U/S showed evidence of chronic parenchymal disease both kidneys; no obstructive uropathy - consulted nephrology, appreciate assistance, creatinine has trended down Severe Lumbar Spine Stenosis/probable transverse myelitis/Significant Lower Extremity Weakness and Recurrent Falls: progressive over the past few months, failed outpatient physical therapy and acupuncture - C-spine MRI showed Multilevel cervical spine degenerative changes; Mild degrees of spinal stenosis at C3/C4-C6/C7; No cord compression or cord signal abnormality; Age indeterminate left paracentral/foraminal disc protrusion at C6/ C7; Multilevel foraminal stenosis, most severe on the left at C6/C7; No fracture or subluxation of the cervical spine. - L-spine MRI showed L4-5 broad-based disc protrusion with severe central canal and lateral recess stenosis and flattening of the exiting right L4 nerve root; L5-S1 there is a disc protrusion and moderate stenosis with flattening of the exiting L5 nerve roots bilaterally; At L3-4 there is a moderate to severe central stenosis and lateral recess stenosis with mild foraminal stenosis; No acute fracture or spondylolisthesis. - Brain MRI showed No acute stroke or other acute intracranial abnormality demonstrated; Moderate severity chronic white matter changes, nonspecific but most likely related to chronic small vessel disease; Few scattered tiny lacunar infarcts of the brainstem - Neurology and Neurosurgery consulted. Neurosurgery recommended nonoperative care with further management per neurology and has signed off. Neurology recommends stopping steroids and cleared for discharge from their standpoint. - Received high dose Solu-medrol 250mg Q6hrs X total 5 days, recommended to DC per neurology - Repeat LP shows mostly clear, previous LP showed blood in the CSF. Bilateral DVT: patient complains of BLE edema and both legs feel "full" and "heavy" - Doppler U/S positive for bilateral DVT. Heparin drip was started but has been on hold. - Patient underwent IVC filter placement on 01/25/2017 - Neurology recommends holding off on anticoagulation due to persistent blood and CSF Type 2 Diabetes Mellitus:Patient takes glipizide at home. - Continue Accu-Cheks before meals and at bedtime with low-dose NovoLog sliding scale coverage - HgbA1c 8.5 - Consulted special education paraeducator and automatic typewriter inspector - Acute hyperglycemia due to steroid. - Increased Levemir to 15 units QHS, with better control overnight - Continue sliding scale insulin and pre-meal insulin with aspart. - Continue pre-meal insulin aspart 8 units 3 times a day before meals. - Expect sugars will improve and on the steroid discontinued. DVT prophylaxis Heparin subcutaneous Patient could not be discharged due to significant weakness. Problem Qualifiers (1) Diabetes mellitus: Qualified Codes: E11.9 - Type 2 diabetes mellitus without complications Kathryn Chairez DO Feb 05, 2017 16:52
[2017-02-05] MEDS: ATORVASTATIN 10 MG TAB PO SCH (21:35)
[2017-02-05] MEDS: INSULIN DETEMIR 100 UNITS/ML VIAL SQ SCH (21:37)
[2017-02-06] VITALS (7 sets, daily range): BP systolic 109–140; BP diastolic 58–81; PULSE 80–90; RESP 16–20; TEMP 97.4–98.8; O2SAT 96–99
[2017-02-06] MEDS: TEMAZEPAM 15 MG CAP PO PRN (02:00)
[2017-02-06] MEDS: ACETAMINOPHEN/HYDROcodone 325 MG/7.5 MG TAB PO PRN ×3 (05:20→22:32)
[2017-02-06] MEDS: INSULIN ASPART 1,000 UNITS/10 ML VIAL SQ SCH ×3 (08:00→17:00)
[2017-02-06] MEDS: INSULIN ASPART SUPPLEMENTAL SCALE SQ SCH ×4 (08:00→21:00)
[2017-02-06] MEDS: DOCUSATE SODIUM 50 MG/SENNA 8.6 MG TAB PO SCH ×2 (09:00→22:31)
[2017-02-06] MEDS: ATENOLOL 25 MG TAB PO SCH (09:09)
[2017-02-06] MEDS: amLODIPine BESYLATE 5 MG TAB PO SCH (09:10)
[2017-02-06] MEDS: SODIUM CHLORIDE 0.9% FLUSH 10 ML FLUSH IV FLUSH SCH ×2 (09:10→22:30)
--- NOTE | 2017-02-06 10:46 | HHI.PR ---
Subjective Remarks Follow-up for transverse myelitis and weakness. Patient is sitting in his chair. No fever, chills. Eating breakfast. PT/OT would like to get an updated weight bearing direction with regards to patient's right upper ext. Currently, patient requires significant assistance - it would be extremely difficult for the son to take care of the patient. Objective Vitals Vital Signs Date Time Temp Pulse Resp B/P (MAP) Pulse Ox O2 Delivery O2 Flow Rate FiO2 02/06/17 08:00 97.4 84 18 129/76 (93) 97 02/06/17 04:00 97.4 84 20 140/81 (100) 98 02/06/17 00:00 97.4 85 20 127/79 (95) 99 02/05/17 17:47 19 02/05/17 16:00 98.0 81 18 121/70 (87) 100 02/05/17 12:00 97.5 89 18 113/71 (85) 98 I/O 02/05/17 02/05/17 02/05/17 02/06/17 02/06/17 02/06/17 07:00 15:00 23:00 07:00 15:00 23:00 Output Total 500 ml Balance -500 ml Output Urine Total 500 ml Result Diagram: 02/04/17 0955 02/02/17 1004 Objective Remarks GENERAL: Alert, NAD. SKIN: Warm and dry. HEAD: Normocephalic. EYES: No scleral icterus. No injection or drainage. NECK: Supple, trachea midline. No JVD or lymphadenopathy. CARDIOVASCULAR: Regular rate and rhythm without murmurs, gallops, or rubs. RESPIRATORY: Breath sounds equal bilaterally. No accessory muscle use. GASTROINTESTINAL: Abdomen soft, non-tender, nondistended. MUSCULOSKELETAL: No cyanosis, or edema. 3/5 lower ext strength, 4/5 upper ext. BACK: Nontender without obvious deformity. No CVA tenderness. Procedures IVC filter placement 01/25/2017 LP 01/26/2017 A/P Problem List: (1) Distal end of ulna fracture, closed ICD Code: S52.609A - Unspecified fracture of lower end of unspecified ulna, initial encounter for closed fracture (2) Diabetes mellitus ICD Code: E11.9 - Type 2 diabetes mellitus without complications Assessment and Plan 61-year-old male with history of diabetes mellitus, gouty arthritis, COPD secondary to recurrent nephrolithiasis per the patient, presents with multiple complaints including bilateral lower extremity weakness, falls, right arm pain. Right Distal Ulna Oblique Fracture: RUE xray images reviewed. - consulted ortho, nonsurgical, recommends continuing splint, plan to transition to cast as outpatient - Continue norco prn pain - Will reconsult Ortho for updated instruction of weight bearing status. - Continue PT/OT. When patient is somewhat improved, we will consider discharging home with his son. Acute Renal Failure on CKD stage 3-4: no previous labs to compare. - No prior labs available for comparison Creatinine 3.7 --> 1.64. - avoid nephrotoxins - Renal U/S showed evidence of chronic parenchymal disease both kidneys; no obstructive uropathy - consulted nephrology, appreciate assistance, creatinine has trended down Severe Lumbar Spine Stenosis/probable transverse myelitis/Significant Lower Extremity Weakness and Recurrent Falls: progressive over the past few months, failed outpatient physical therapy and acupuncture - C-spine MRI showed Multilevel cervical spine degenerative changes; Mild degrees of spinal stenosis at C3/C4-C6/C7; No cord compression or cord signal abnormality; Age indeterminate left paracentral/foraminal disc protrusion at C6/ C7; Multilevel foraminal stenosis, most severe on the left at C6/C7; No fracture or subluxation of the cervical spine. - L-spine MRI showed L4-5 broad-based disc protrusion with severe central canal and lateral recess stenosis and flattening of the exiting right L4 nerve root; L5-S1 there is a disc protrusion and moderate stenosis with flattening of the exiting L5 nerve roots bilaterally; At L3-4 there is a moderate to severe central stenosis and lateral recess stenosis with mild foraminal stenosis; No acute fracture or spondylolisthesis. - Brain MRI showed No acute stroke or other acute intracranial abnormality demonstrated; Moderate severity chronic white matter changes, nonspecific but most likely related to chronic small vessel disease; Few scattered tiny lacunar infarcts of the brainstem - Neurology and Neurosurgery consulted. Neurosurgery recommended nonoperative care with further management per neurology and has signed off. Neurology recommends stopping steroids and cleared for discharge from their standpoint. - Received high dose Solu-medrol 250mg Q6hrs X total 5 days, recommended to DC per neurology - Repeat LP shows mostly clear, previous LP showed blood in the CSF. Bilateral DVT: patient complains of BLE edema and both legs feel "full" and "heavy" - Doppler U/S positive for bilateral DVT. Heparin drip was started but has been on hold. - Patient underwent IVC filter placement on 01/25/2017 - Neurology recommends holding off on anticoagulation due to persistent blood and CSF Type 2 Diabetes Mellitus:Patient takes glipizide at home. - Continue Accu-Cheks before meals and at bedtime with low-dose NovoLog sliding scale coverage - HgbA1c 8.5 - Consulted certified diabetes educator and letterset press set up operator - Acute hyperglycemia due to steroid. - Increased Levemir to 15 units QHS, with better control overnight - Continue sliding scale insulin and pre-meal insulin with aspart. - Continue pre-meal insulin aspart 8 units 3 times a day before meals. - Expect sugars will improve and on the steroid discontinued. DVT prophylaxis Heparin subcutaneous Problem Qualifiers (1) Diabetes mellitus: Qualified Codes: E11.9 - Type 2 diabetes mellitus without complications Kathryn Chairez DO Feb 06, 2017 10:46
--- NOTE | 2017-02-06 14:07 | RADRPT ---
EXAM DATE/TIME: 02/06/2017 12:50 [facility] COMPARISON: No previous studies available for comparison. INDICATIONS : Fracture. MEDICAL HISTORY : Right wrist fracture.Hypertension. Diabetes mellitus type 2. Gout. SURGICAL HISTORY : Right wrist surgery. ENCOUNTER: Subsequent ACUITY: 2 weeks PAIN SCORE: 0/10 LOCATION: Right Wrist. FINDINGS: Two view examination of the right wrist demonstrates the wrist to be in a splint. Distal radius and u lnar fractures are seen. Minimally displaced fracture of the radial styloid. Fracture of the distal u photoengraver apprentice and ulnar styloid. Extensive soft tissue swelling. Diffuse arthropathy the rest. CONCLUSION: Minimally displaced distal radius and ulnar fractures. Armando Dodd MD on February 06, 2017 at 14:04 Board Certified Radiologist. This report was verified electronically.
[2017-02-06] MEDS: ATORVASTATIN 10 MG TAB PO SCH (22:31)
[2017-02-06] MEDS: INSULIN DETEMIR 100 UNITS/ML VIAL SQ SCH (22:32)
[2017-02-07 00:30] VITALS: BP 135/84; PULSE 80; RESP 21; TEMP 97.9; O2SAT 97
[2017-02-07] MEDS: ACETAMINOPHEN/HYDROcodone 325 MG/5 MG TAB PO PRN (05:09)
[2017-02-07 06:00] VITALS: BP 120/74; PULSE 75; RESP 19; TEMP 98; O2SAT 97
--- NOTE | 2017-02-07 06:52 | PD.ORT.PN ---
Subjective Subjective Remarks s/p right distal ulna fx doing well. pain controlled. no complaints. Objective Vitals Vital Signs Date Time Temp Pulse Resp B/P (MAP) Pulse Ox O2 Delivery O2 Flow Rate FiO2 02/07/17 00:30 97.9 80 21 135/84 (101) 97 02/06/17 21:45 98.8 80 20 138/80 (99) 96 02/06/17 18:22 90 02/06/17 16:00 97.8 87 16 110/69 (83) 97 02/06/17 12:00 98.7 83 18 109/58 (75) 98 02/06/17 08:00 97.4 84 18 129/76 (93) 97 I/O 02/06/17 02/06/17 02/06/17 02/07/17 02/07/17 02/07/17 07:00 15:00 23:00 07:00 15:00 23:00 Output Total 300 ml 225 ml Balance -300 ml -225 ml Output Urine Total 300 ml 225 ml # Voids 1 # Bowel Movements 0 Result Diagram: 02/04/17 0955 Objective Remarks RUE: +short arm splint. splint removed. mild swelling over ulna. no erythema. non tender. NVI Assessment & Plan Assessment and Plan 1) Right Distal Ulna Fx - nonop -NWB to wrist -ok to use elbow and platform walker -will transition to cockup wrist brace Phil Quintanilla Feb 07, 2017 06:52
[2017-02-07] MEDS: INSULIN ASPART SUPPLEMENTAL SCALE SQ SCH ×4 (08:00→21:00)
[2017-02-07] MEDS: INSULIN ASPART 1,000 UNITS/10 ML VIAL SQ SCH ×3 (08:00→17:00)
[2017-02-07] MEDS: SODIUM CHLORIDE 0.9% FLUSH 10 ML FLUSH IV FLUSH SCH ×2 (09:00→20:45)
[2017-02-07] MEDS: amLODIPine BESYLATE 5 MG TAB PO SCH (09:10)
[2017-02-07 09:11] VITALS: BP 117/79; PULSE 85; RESP 18; TEMP 97.7; O2SAT 95
[2017-02-07] MEDS: ATENOLOL 25 MG TAB PO SCH (09:11)
[2017-02-07] MEDS: DOCUSATE SODIUM 50 MG/SENNA 8.6 MG TAB PO SCH ×2 (09:11→20:45)
[2017-02-07 09:43] LABS: HEMATOCRIT 40.8 % (39.0-51.0); MEAN CELL VOLUME 83.3 FL (80.0-100.0); MEAN CORPUSCULAR HEMOGLOBIN 26.9 PG (27.0-34.0); MEAN CORPUSCULAR HGB CONC 32.2 % (32.0-36.0); PLATELET COUNT 261 TH/MM3 (150-450); RED CELL DISTRIBUTION WIDTH 18.1 % (11.6-17.2); REVIEW FLAG FINAL; WHITE BLOOD COUNT 21.6 TH/MM3 (4.0-11.0)
[2017-02-07] MEDS: ACETAMINOPHEN/HYDROcodone 325 MG/7.5 MG TAB PO PRN ×2 (11:45→20:44)
--- NOTE | 2017-02-07 12:22 | HHI.PR ---
Subjective Remarks Follow-up for transverse myelitis and weakness. Patient is sitting in his chair. Per PT, patient is doing very well. He was able to get up from his bed and sit in his chair. No chest pain, shortness of breath, fever or chills. Sister and patient's father at bedside. Objective Vitals Vital Signs Date Time Temp Pulse Resp B/P (MAP) Pulse Ox O2 Delivery O2 Flow Rate FiO2 02/07/17 09:11 97.7 85 18 117/79 (92) 95 02/07/17 06:00 98.0 75 19 120/74 (89) 97 02/07/17 00:30 97.9 80 21 135/84 (101) 97 02/06/17 21:45 98.8 80 20 138/80 (99) 96 02/06/17 18:22 90 02/06/17 16:00 97.8 87 16 110/69 (83) 97 I/O 02/06/17 02/06/17 02/06/17 02/07/17 02/07/17 02/07/17 07:00 15:00 23:00 07:00 15:00 23:00 Intake Total 625 ml Output Total 300 ml 625 ml Balance -300 ml 0 ml Intake Oral 625 ml Output Urine Total 300 ml 625 ml # Voids 1 # Bowel Movements 0 0 Result Diagram: 02/07/17 0845 Imaging Last Impressions Wrist X-Ray 02/06/17 0000 Signed Impressions: Service Date/Time: Monday, February 06, 2017 12:50 - CONCLUSION: Minimally displaced distal radius and ulnar fractures. Armando Dodd MD Lumbar Puncture Fluoroscopy 02/01/17 0000 Signed Impressions: Service Date/Time: January 09:35 - CONCLUSION: Uncomplicated fluoroscopically guided lumbar puncture. CSF was clear. Nabeel Peralta MD Head Magnetic Resonance Angiography 01/27/17 0000 Signed Impressions: Service Date/Time: Friday, January 27, 2017 10:33 - CONCLUSION: No intracranial vascular abnormality is identified. There is no aneurysm visualized. Angelo Allen MD IVC Filter Placement X-Ray 01/25/17 0000 Signed Impressions: Service Date/Time: January 10:29 - CONCLUSION: Uncomplicated inferior vena cava filter placement as above. Yung Fowler MD Thoracic Spine MRI 01/24/17 Signed Impressions: Service Date/Time: Tuesday, January 24, 2017 22:29 - CONCLUSION: 1. Mild degenerative spondylosis most prominently at T11-L1 with slight effacement of the anterior thecal sac and left lateral recess. No significant neural foraminal stenosis. 2. No acute fracture. Juan Bhakta MD Renal Ultrasound 01/23/17 Signed Impressions: Service Date/Time: Monday, January 23, 2017 08:53 - CONCLUSION: 1. Evidence of chronic parenchymal disease of both kidneys. No obstructive uropathy or other acute abnormality demonstrated. 2. Trace ascites, nonspecific. Angelo Garrido MD Lumbar Spine MRI 01/23/17 Signed Impressions: Service Date/Time: Monday, January 23, 2017 17:01 - CONCLUSION: 1. At L4-5 is a broad-based disc protrusion with severe central canal and lateral recess stenosis and flattening of the exiting right L4 nerve root. 2. L5-S1 there is a disc protrusion and moderate stenosis with flattening of the exiting L5 nerve roots bilaterally. 3. At L3-4 there is a moderate to severe central stenosis and lateral recess stenosis with mild foraminal stenosis. 4. No acute fracture or spondylolisthesis. Trace Holloway MD Lower Extremity Ultrasound 01/23/17 Signed Impressions: Service Date/Time: Monday, January 23, 2017 09:53 - CONCLUSION: Bilateral focal lower extremity DVT involving the posterior tibial veins. Angelo Garrido MD Cervical Spine MRI 01/23/17 Signed Impressions: Service Date/Time: Monday, January 23, 2017 17:01 - CONCLUSION: 1. Multilevel cervical spine degenerative changes as above. 2. Mild degrees of spinal stenosis at C3/C4-C6/C7. No cord compression or cord signal abnormality. 3. Age indeterminate left paracentral/foraminal disc protrusion at C6/C7. 4. Multilevel foraminal stenosis, most severe on the left at C6/C7. Please see individual levels above. 5. No fracture or subluxation of the cervical spine. Angelo Garrido MD Brain MRI 01/23/17 Signed Impressions: Service Date/Time: Monday, January 23, 2017 17:01 - CONCLUSION: 1. No acute stroke or other acute intracranial abnormality demonstrated. 2. Moderate severity chronic white matter changes, nonspecific but most likely related to chronic small vessel disease. 3. Few scattered tiny lacunar infarcts of the brainstem. 4. Given the findings are not entirely specific, clinical evaluation for possible multiple sclerosis recommended. Angelo Garrido MD Head CT 01/22/172202 Signed Impressions: Service Date/Time: Sunday, January 22, 2017 22:39 - CONCLUSION: Negative noncontrast CT Benjamin Person MD Chest X-Ray 01/22/172202 Signed Impressions: Service Date/Time: Sunday, January 22, 2017 22:18 - CONCLUSION: No acute disease. Benjamin Person MD Knee X-Ray 01/22/172053 Signed Impressions: Service Date/Time: Sunday, January 22, 2017 21:17 - CONCLUSION: 1. Evidence of moderate to large joint effusion. 2. No acute fracture or malalignment. 3. Mild 3 compartment osteoarthritic change. Benjamin Person MD Hip and Pelvis X-Ray 01/22/172053 Signed Impressions: Service Date/Time: Sunday, January 22, 2017 21:10 - CONCLUSION: 1. Mild to moderate degenerative change of both hips with no acute fracture or malalignment. There is flattening and remodeling of the right humeral head. Benjamin Person MD Objective Remarks GENERAL: Alert, NAD. SKIN: Warm and dry. HEAD: Normocephalic. EYES: No scleral icterus. No injection or drainage. NECK: Supple, trachea midline. No JVD or lymphadenopathy. CARDIOVASCULAR: Regular rate and rhythm without murmurs, gallops, or rubs. RESPIRATORY: Breath sounds equal bilaterally. No accessory muscle use. GASTROINTESTINAL: Abdomen soft, non-tender, nondistended. MUSCULOSKELETAL: No cyanosis, or edema. 3/5 lower ext strength, 4/5 upper ext. BACK: Nontender without obvious deformity. No CVA tenderness. Procedures IVC filter placement 01/25/2017 LP 01/26/2017 A/P Problem List: (1) Distal end of ulna fracture, closed ICD Code: S52.609A - Unspecified fracture of lower end of unspecified ulna, initial encounter for closed fracture (2) Diabetes mellitus ICD Code: E11.9 - Type 2 diabetes mellitus without complications Assessment and Plan 61-year-old male with history of diabetes mellitus, gouty arthritis, COPD secondary to recurrent nephrolithiasis per the patient, presents with multiple complaints including bilateral lower extremity weakness, falls, right arm pain. Right Distal Ulna Oblique Fracture: RUE xray images reviewed. - consulted ortho, nonsurgical, recommends continuing splint, plan to transition to cast as outpatient - Continue norco prn pain - Continue PT/OT. When patient is somewhat improved, we will consider discharging home with his son. - Patient already shows good improvements. Anticipate 3-4 more days in the hospital. Acute Renal Failure on CKD stage 3-4: no previous labs to compare. - No prior labs available for comparison Creatinine 3.7 --> 1.64. - avoid nephrotoxins - Renal U/S showed evidence of chronic parenchymal disease both kidneys; no obstructive uropathy - consulted nephrology, appreciate assistance, creatinine has trended down Severe Lumbar Spine Stenosis/probable transverse myelitis/Significant Lower Extremity Weakness and Recurrent Falls: progressive over the past few months, failed outpatient physical therapy and acupuncture - C-spine MRI showed Multilevel cervical spine degenerative changes; Mild degrees of spinal stenosis at C3/C4-C6/C7; No cord compression or cord signal abnormality; Age indeterminate left paracentral/foraminal disc protrusion at C6/ C7; Multilevel foraminal stenosis, most severe on the left at C6/C7; No fracture or subluxation of the cervical spine. - L-spine MRI showed L4-5 broad-based disc protrusion with severe central canal and lateral recess stenosis and flattening of the exiting right L4 nerve root; L5-S1 there is a disc protrusion and moderate stenosis with flattening of the exiting L5 nerve roots bilaterally; At L3-4 there is a moderate to severe central stenosis and lateral recess stenosis with mild foraminal stenosis; No acute fracture or spondylolisthesis. - Brain MRI showed No acute stroke or other acute intracranial abnormality demonstrated; Moderate severity chronic white matter changes, nonspecific but most likely related to chronic small vessel disease; Few scattered tiny lacunar infarcts of the brainstem - Neurology and Neurosurgery consulted. Neurosurgery recommended nonoperative care with further management per neurology and has signed off. Neurology recommends stopping steroids and cleared for discharge from their standpoint. - Received high dose Solu-medrol 250mg Q6hrs X total 5 days, recommended to DC per neurology - Repeat LP shows mostly clear, previous LP showed blood in the CSF. Bilateral DVT: patient complains of BLE edema and both legs feel "full" and "heavy" - Doppler U/S positive for bilateral DVT. Heparin drip was started but has been on hold. - Patient underwent IVC filter placement on 01/25/2017 - Neurology recommends holding off on anticoagulation due to persistent blood and CSF Type 2 Diabetes Mellitus:Patient takes glipizide at home. - Continue Accu-Cheks before meals and at bedtime with low-dose NovoLog sliding scale coverage - HgbA1c 8.5 - Consulted health promotion educator and shank faker - Acute hyperglycemia due to steroid. - Increased Levemir to 15 units QHS, with better control overnight - Continue sliding scale insulin and pre-meal insulin with aspart. - Continue pre-meal insulin aspart 8 units 3 times a day before meals. - Expect sugars will improve and on the steroid discontinued. DVT prophylaxis Heparin subcutaneous Problem Qualifiers (1) Diabetes mellitus: Qualified Codes: E11.9 - Type 2 diabetes mellitus without complications Kathryn Chairez DO Feb 07, 2017 12:22 pm
[2017-02-07 13:24] VITALS: BP 116/71; PULSE 91; RESP 18; TEMP 97.6; O2SAT 95
[2017-02-07 16:57] VITALS: BP 102/58; PULSE 91; RESP 18; TEMP 98.7; O2SAT 97
[2017-02-07 20:00] VITALS: BP 110/65; PULSE 80; PULSE 89; RESP 18; TEMP 98.5; O2SAT 95
[2017-02-07] MEDS: ATORVASTATIN 10 MG TAB PO SCH (20:45)
[2017-02-07] MEDS: INSULIN DETEMIR 100 UNITS/ML VIAL SQ SCH (20:45)
[2017-02-07] MEDS: TEMAZEPAM 15 MG CAP PO PRN (23:46)
[2017-02-08] VITALS (8 sets, daily range): BP systolic 94–121; BP diastolic 51–76; PULSE 75–97; RESP 18–19; TEMP 97.3–99.2; O2SAT 94–98
[2017-02-08] MEDS: ACETAMINOPHEN/HYDROcodone 325 MG/7.5 MG TAB PO PRN ×2 (02:36→13:27)
[2017-02-08] MEDS: INSULIN ASPART SUPPLEMENTAL SCALE SQ SCH ×4 (08:00→22:59)
[2017-02-08] MEDS: INSULIN ASPART 1,000 UNITS/10 ML VIAL SQ SCH ×3 (08:00→17:00)
[2017-02-08] MEDS: ATENOLOL 25 MG TAB PO SCH (08:08)
[2017-02-08] MEDS: amLODIPine BESYLATE 5 MG TAB PO SCH (08:08)
[2017-02-08] MEDS: SODIUM CHLORIDE 0.9% FLUSH 10 ML FLUSH IV FLUSH SCH ×2 (08:14→22:58)
[2017-02-08] MEDS: DOCUSATE SODIUM 50 MG/SENNA 8.6 MG TAB PO SCH ×2 (08:14→22:56)
--- NOTE | 2017-02-08 16:37 | PD.WCN.NOT ---
Wound Consult Description: Follow up of wound management of buttock area Communicated with: Lisa, slitter creaser slotter helper Dr Chairez Recommendation: Apply Calazime barrier cream BID and PRN and leave open to air. Please do not remove all of Calazime from patient skin, ok to layer. Do not apply adhesive foam dressings. [place] left heel with betadine BID, float heels by placing in heel raiser boots. Reposition patient from left to right every 2 hours and PRN for comfort Additional Information: Patient seen on for follow up of wound to sacrum/buttocks. Patient positioned to his right side for assessment. Full thickness skinloss is noted to the sacrum with 100% white fascia, circular shape, and measuring 2cm x 1cm x 0.4cm indicating a Stage IV pressure injury that was previously documented as a DTI. Periwound is slow to abby erythema. Right buttock noted with a partial thickness skinloss area measuring 0.6cm x 1cm x 0.1cm with jagged wound margins and 100% pink tissue noted indicating a moisture and friction relation. There is a newly discovered deflated blood filled blister on the distal heel measuring 1.2cm x 3.2cm x 0 indicating a DEEP TISSUE INJURY Pressure relieving support surface was ordered per protocol on 02/01/17, patient was placed on the specialty surface, and then the patient states he refused continuity after having [employer]) "for 2 days" saying "it was the most uncomfortable mattress" he had "ever tried to sleep on". Recommend to obtain and place patient on different type of pressure relieving surface (Advanced IV or WAVE) [facility] Feb 08, 2017 16:37
--- NOTE | 2017-02-08 17:49 | HHI.PR ---
Subjective Remarks Follow-up for transverse myelitis and weakness. Patient is resting in bed, doing well. Per RN, patient's BP apparently drops to 70s systolic during physical therapy. At rest, he is normotensive. Denies any chest pain, SOB, fever , chills. Objective Vitals Vital Signs Date Time Temp Pulse Resp B/P (MAP) Pulse Ox O2 Delivery O2 Flow Rate FiO2 02/08/17 16:00 98.3 89 19 94/52 (66) 95 02/08/17 12:00 97.7 90 19 111/68 (82) 97 02/08/17 08:55 99.2 75 18 121/76 (91) 97 02/08/17 08:40 86 02/08/17 06:30 97.3 89 18 120/70 (87) 95 02/08/17 00:00 98.8 80 19 115/66 (82) 95 02/07/17 20:00 98.5 89 18 110/65 (80) 95 02/07/17 20:00 80 I/O 02/07/17 02/07/17 02/07/17 02/08/17 02/08/17 02/08/17 07:00 15:00 23:00 07:00 15:00 23:00 Intake Total 625 ml 720 ml 800 ml Output Total 625 ml 600 ml 850 ml Balance 0 ml 120 ml -50 ml Intake Oral 625 ml 720 ml 800 ml Output Urine Total 625 ml 600 ml 850 ml # Bowel Movements 0 0 0 Result Diagram: 02/07/17 0845 Objective Remarks GENERAL: Alert, NAD. SKIN: Warm and dry. HEAD: Normocephalic. EYES: No scleral icterus. No injection or drainage. NECK: Supple, trachea midline. No JVD or lymphadenopathy. CARDIOVASCULAR: Regular rate and rhythm without murmurs, gallops, or rubs. RESPIRATORY: Breath sounds equal bilaterally. No accessory muscle use. GASTROINTESTINAL: Abdomen soft, non-tender, nondistended. MUSCULOSKELETAL: No cyanosis, or edema. 3/5 lower ext strength, 4/5 upper ext. BACK: Nontender without obvious deformity. No CVA tenderness. Procedures IVC filter placement 01/25/2017 LP 01/26/2017 A/P Problem List: (1) Distal end of ulna fracture, closed ICD Code: S52.609A - Unspecified fracture of lower end of unspecified ulna, initial encounter for closed fracture (2) Diabetes mellitus ICD Code: E11.9 - Type 2 diabetes mellitus without complications Assessment and Plan 61-year-old male with history of diabetes mellitus, gouty arthritis, COPD secondary to recurrent nephrolithiasis per the patient, presents with multiple complaints including bilateral lower extremity weakness, falls, right arm pain. Right Distal Ulna Oblique Fracture: RUE xray images reviewed. - consulted ortho, nonsurgical, recommends continuing splint, plan to transition to cast as outpatient - Continue norco prn pain - Continue PT/OT. When patient is somewhat improved, we will consider discharging home with his son. - Patient already shows good improvements. Hypotension - Patient is currently on Atenolol and Amlodipine. - Will hold these medications for now. We will consider re-starting if BP is elevated above > 150 systolic. Acute Renal Failure on CKD stage 3-4: no previous labs to compare. - No prior labs available for comparison Creatinine 3.7 --> 1.64. - avoid nephrotoxins - Renal U/S showed evidence of chronic parenchymal disease both kidneys; no obstructive uropathy - consulted nephrology, appreciate assistance, creatinine has trended down Severe Lumbar Spine Stenosis/probable transverse myelitis/Significant Lower Extremity Weakness and Recurrent Falls: progressive over the past few months, failed outpatient physical therapy and acupuncture - C-spine MRI showed Multilevel cervical spine degenerative changes; Mild degrees of spinal stenosis at C3/C4-C6/C7; No cord compression or cord signal abnormality; Age indeterminate left paracentral/foraminal disc protrusion at C6/ C7; Multilevel foraminal stenosis, most severe on the left at C6/C7; No fracture or subluxation of the cervical spine. - L-spine MRI showed L4-5 broad-based disc protrusion with severe central canal and lateral recess stenosis and flattening of the exiting right L4 nerve root; L5-S1 there is a disc protrusion and moderate stenosis with flattening of the exiting L5 nerve roots bilaterally; At L3-4 there is a moderate to severe central stenosis and lateral recess stenosis with mild foraminal stenosis; No acute fracture or spondylolisthesis. - Brain MRI showed No acute stroke or other acute intracranial abnormality demonstrated; Moderate severity chronic white matter changes, nonspecific but most likely related to chronic small vessel disease; Few scattered tiny lacunar infarcts of the brainstem - Neurology and Neurosurgery consulted. Neurosurgery recommended nonoperative care with further management per neurology and has signed off. Neurology recommends stopping steroids and cleared for discharge from their standpoint. - Received high dose Solu-medrol 250mg Q6hrs X total 5 days, recommended to DC per neurology - Repeat LP shows mostly clear, previous LP showed blood in the CSF. Bilateral DVT: patient complains of BLE edema and both legs feel "full" and "heavy" - Doppler U/S positive for bilateral DVT. Heparin drip was started but has been on hold. - Patient underwent IVC filter placement on 01/25/2017 - Neurology recommends holding off on anticoagulation due to persistent blood and CSF Type 2 Diabetes Mellitus:Patient takes glipizide at home. - Continue Accu-Cheks before meals and at bedtime with low-dose NovoLog sliding scale coverage - HgbA1c 8.5 - Consulted cherry dipper and vacuum technician - Acute hyperglycemia due to steroid. - Increased Levemir to 15 units QHS, with better control overnight - Continue sliding scale insulin and pre-meal insulin with aspart. - Continue pre-meal insulin aspart 8 units 3 times a day before meals. - Expect sugars will improve and on the steroid discontinued. DVT prophylaxis Heparin subcutaneous Problem Qualifiers (1) Diabetes mellitus: Qualified Codes: E11.9 - Type 2 diabetes mellitus without complications Kathryn Chairez DO Feb 08, 2017 17:49
[2017-02-08] MEDS: ATORVASTATIN 10 MG TAB PO SCH (22:57)
[2017-02-08] MEDS: INSULIN DETEMIR 100 UNITS/ML VIAL SQ SCH (22:58)
[2017-02-08] MEDS: ACETAMINOPHEN/HYDROcodone 325 MG/5 MG TAB PO PRN (22:58)
[2017-02-09] VITALS (9 sets, daily range): BP systolic 88–110; BP diastolic 51–63; PULSE 93–132; RESP 14–18; TEMP 98.5–102.8; O2SAT 90–98
[2017-02-09] MEDS: ACETAMINOPHEN/HYDROcodone 325 MG/7.5 MG TAB PO PRN ×3 (09:04→18:40)
[2017-02-09] MEDS: INSULIN ASPART 1,000 UNITS/10 ML VIAL SQ SCH ×3 (09:06→18:18)
[2017-02-09] MEDS: INSULIN ASPART SUPPLEMENTAL SCALE SQ SCH ×4 (09:07→20:42)
[2017-02-09] MEDS: SODIUM CHLORIDE 0.9% FLUSH 10 ML FLUSH IV FLUSH SCH ×2 (09:08→20:52)
--- NOTE | 2017-02-09 09:13 | HHI.PR ---
Subjective Remarks Follow-up for transverse myelitis and weakness. Patient is resting in bed. No chest pain, shortness of breath, fever or chills. He has not had physical therapy today. Currently blood pressure within normal range. Objective Vitals Vital Signs Date Time Temp Pulse Resp B/P (MAP) Pulse Ox O2 Delivery O2 Flow Rate FiO2 02/09/17 08:21 98.6 108 14 101/61 (74) 96 02/09/17 05:57 99.2 100 18 110/63 (79) 98 02/09/17 02:10 93 02/09/17 01:45 98.5 101 18 91/51 (64) 93 02/08/17 23:58 19 02/08/17 23:10 99.1 97 19 110/71 (84) 98 02/08/17 21:22 99.0 96 18 96/51 (66) 94 02/08/17 16:00 98.3 89 19 94/52 (66) 95 02/08/17 12:00 97.7 90 19 111/68 (82) 97 I/O 02/08/17 02/08/17 02/08/17 02/09/17 02/09/17 02/09/17 07:00 15:00 23:00 07:00 15:00 23:00 Intake Total 800 ml Output Total 850 ml 400 ml Balance -50 ml -400 ml Intake Oral 800 ml Output Urine Total 850 ml 400 ml # Bowel Movements 0 0 Result Diagram: 02/07/17 0845 Imaging Last Impressions Wrist X-Ray 02/06/17 0000 Signed Impressions: Service Date/Time: Monday, February 06, 2017 12:50 - CONCLUSION: Minimally displaced distal radius and ulnar fractures. Armando Dodd MD Lumbar Puncture Fluoroscopy 02/01/17 0000 Signed Impressions: Service Date/Time: January 09:35 - CONCLUSION: Uncomplicated fluoroscopically guided lumbar puncture. CSF was clear. Nabeel Peralta MD Head Magnetic Resonance Angiography 01/27/17 0000 Signed Impressions: Service Date/Time: Friday, January 27, 2017 10:33 - CONCLUSION: No intracranial vascular abnormality is identified. There is no aneurysm visualized. Angelo Allen MD IVC Filter Placement X-Ray 01/25/17 0000 Signed Impressions: Service Date/Time: January 10:29 - CONCLUSION: Uncomplicated inferior vena cava filter placement as above. Yung Fowler MD Thoracic Spine MRI 01/24/17 Signed Impressions: Service Date/Time: Tuesday, January 24, 2017 22:29 - CONCLUSION: 1. Mild degenerative spondylosis most prominently at T11-L1 with slight effacement of the anterior thecal sac and left lateral recess. No significant neural foraminal stenosis. 2. No acute fracture. Juan Bhakta MD Renal Ultrasound 01/23/17 Signed Impressions: Service Date/Time: Monday, January 23, 2017 08:53 - CONCLUSION: 1. Evidence of chronic parenchymal disease of both kidneys. No obstructive uropathy or other acute abnormality demonstrated. 2. Trace ascites, nonspecific. Angelo Garrido MD Lumbar Spine MRI 01/23/17 Signed Impressions: Service Date/Time: Monday, January 23, 2017 17:01 - CONCLUSION: 1. At L4-5 is a broad-based disc protrusion with severe central canal and lateral recess stenosis and flattening of the exiting right L4 nerve root. 2. L5-S1 there is a disc protrusion and moderate stenosis with flattening of the exiting L5 nerve roots bilaterally. 3. At L3-4 there is a moderate to severe central stenosis and lateral recess stenosis with mild foraminal stenosis. 4. No acute fracture or spondylolisthesis. Trace Holloway MD Lower Extremity Ultrasound 01/23/17 Signed Impressions: Service Date/Time: Monday, January 23, 2017 09:53 - CONCLUSION: Bilateral focal lower extremity DVT involving the posterior tibial veins. Angelo Garrido MD Cervical Spine MRI 01/23/17 Signed Impressions: Service Date/Time: Monday, January 23, 2017 17:01 - CONCLUSION: 1. Multilevel cervical spine degenerative changes as above. 2. Mild degrees of spinal stenosis at C3/C4-C6/C7. No cord compression or cord signal abnormality. 3. Age indeterminate left paracentral/foraminal disc protrusion at C6/C7. 4. Multilevel foraminal stenosis, most severe on the left at C6/C7. Please see individual levels above. 5. No fracture or subluxation of the cervical spine. Angelo Garrido MD Brain MRI 9/5/17 0000 Signed Impressions: Service Date/Time: Monday, January 23, 2017 17:01 - CONCLUSION: 1. No acute stroke or other acute intracranial abnormality demonstrated. 2. Moderate severity chronic white matter changes, nonspecific but most likely related to chronic small vessel disease. 3. Few scattered tiny lacunar infarcts of the brainstem. 4. Given the findings are not entirely specific, clinical evaluation for possible multiple sclerosis recommended. Angelo Garrido MD Head CT 01/22/172202 Signed Impressions: Service Date/Time: Sunday, January 22, 2017 22:39 - CONCLUSION: Negative noncontrast CT Benjamin Person MD Chest X-Ray 01/22/172202 Signed Impressions: Service Date/Time: Sunday, January 22, 2017 22:18 - CONCLUSION: No acute disease. Benjamin Person MD Knee X-Ray 01/22/172053 Signed Impressions: Service Date/Time: Sunday, January 22, 2017 21:17 - CONCLUSION: 1. Evidence of moderate to large joint effusion. 2. No acute fracture or malalignment. 3. Mild 3 compartment osteoarthritic change. Benjamin Person MD Hip and Pelvis X-Ray 01/22/172053 Signed Impressions: Service Date/Time: Sunday, January 22, 2017 21:10 - CONCLUSION: 1. Mild to moderate degenerative change of both hips with no acute fracture or malalignment. There is flattening and remodeling of the right humeral head. Benjamin Person MD Objective Remarks GENERAL: Alert, NAD. SKIN: Warm and dry. HEAD: Normocephalic. EYES: No scleral icterus. No injection or drainage. NECK: Supple, trachea midline. No JVD or lymphadenopathy. CARDIOVASCULAR: Regular rate and rhythm without murmurs, gallops, or rubs. RESPIRATORY: Breath sounds equal bilaterally. No accessory muscle use. GASTROINTESTINAL: Abdomen soft, non-tender, nondistended. MUSCULOSKELETAL: No cyanosis, or edema. 3/5 lower ext strength, 4/5 upper ext. BACK: Nontender without obvious deformity. No CVA tenderness. Procedures IVC filter placement 01/25/2017 LP 01/26/2017 A/P Problem List: (1) Distal end of ulna fracture, closed ICD Code: S52.609A - Unspecified fracture of lower end of unspecified ulna, initial encounter for closed fracture (2) Diabetes mellitus ICD Code: E11.9 - Type 2 diabetes mellitus without complications Assessment and Plan 61-year-old male with history of diabetes mellitus, gouty arthritis, COPD secondary to recurrent nephrolithiasis per the patient, presents with multiple complaints including bilateral lower extremity weakness, falls, right arm pain. Right Distal Ulna Oblique Fracture: RUE xray images reviewed. - consulted ortho, nonsurgical, recommends continuing splint, plan to transition to cast as outpatient - Continue norco prn pain - Continue PT/OT. When patient is somewhat improved, we will consider discharging home with his son. - Patient already shows good improvements. Hypotension -We'll hold blood pressure medications for now. We will consider re-starting if BP is elevated above > 150 systolic. - Patient has tachycardia in the low 100 range. If it persist will consider beta yani low-dose. - Discussed with RN regarding checking blood pressure during physical therapy. Acute Renal Failure on CKD stage 3-4: no previous labs to compare. - No prior labs available for comparison Creatinine 3.7 --> 1.64. - avoid nephrotoxins - Renal U/S showed evidence of chronic parenchymal disease both kidneys; no obstructive uropathy - consulted nephrology, appreciate assistance, creatinine has trended down Severe Lumbar Spine Stenosis/probable transverse myelitis/Significant Lower Extremity Weakness and Recurrent Falls: progressive over the past few months, failed outpatient physical therapy and acupuncture - C-spine MRI showed Multilevel cervical spine degenerative changes; Mild degrees of spinal stenosis at C3/C4-C6/C7; No cord compression or cord signal abnormality; Age indeterminate left paracentral/foraminal disc protrusion at C6/ C7; Multilevel foraminal stenosis, most severe on the left at C6/C7; No fracture or subluxation of the cervical spine. - L-spine MRI showed L4-5 broad-based disc protrusion with severe central canal and lateral recess stenosis and flattening of the exiting right L4 nerve root; L5-S1 there is a disc protrusion and moderate stenosis with flattening of the exiting L5 nerve roots bilaterally; At L3-4 there is a moderate to severe central stenosis and lateral recess stenosis with mild foraminal stenosis; No acute fracture or spondylolisthesis. - Brain MRI showed No acute stroke or other acute intracranial abnormality demonstrated; Moderate severity chronic white matter changes, nonspecific but most likely related to chronic small vessel disease; Few scattered tiny lacunar infarcts of the brainstem - Neurology and Neurosurgery consulted. Neurosurgery recommended nonoperative care with further management per neurology and has signed off. Neurology recommends stopping steroids and cleared for discharge from their standpoint. - Received high dose Solu-medrol 250mg Q6hrs X total 5 days, recommended to DC per neurology - Repeat LP shows mostly clear, previous LP showed blood in the CSF. Bilateral DVT: patient complains of BLE edema and both legs feel "full" and "heavy" - Doppler U/S positive for bilateral DVT. Heparin drip was started but has been on hold. - Patient underwent IVC filter placement on 01/25/2017 - Neurology recommends holding off on anticoagulation due to persistent blood and CSF Type 2 Diabetes Mellitus:Patient takes glipizide at home. - Continue Accu-Cheks before meals and at bedtime with low-dose NovoLog sliding scale coverage - HgbA1c 8.5 - Consulted early childhood educator aide and enchilada maker - Acute hyperglycemia due to steroid. - Increased Levemir to 15 units QHS, with better control overnight - Continue sliding scale insulin and pre-meal insulin with aspart. - Continue pre-meal insulin aspart 8 units 3 times a day before meals. - Expect sugars will improve and on the steroid discontinued. DVT prophylaxis Heparin subcutaneous Problem Qualifiers (1) Diabetes mellitus: Qualified Codes: E11.9 - Type 2 diabetes mellitus without complications Kathryn Chairez DO Feb 09, 2017 9:13 am
[2017-02-09] MEDS: DOCUSATE SODIUM 50 MG/SENNA 8.6 MG TAB PO SCH ×2 (12:30→20:49)
[2017-02-09] MEDS: ONDANSETRON HCL 4 MG/2 ML VIAL IVP PRN ×2 (13:11→20:59)
--- NOTE | 2017-02-09 15:32 | RADRPT ---
EXAM DATE/TIME: 02/09/2017 14:54 [facility] COMPARISON: CHEST SINGLE AP, January 22, 2017, 22:18. INDICATIONS : Short of breath. MEDICAL HISTORY : Diabetes mellitus type II. Hypertension Gout. SURGICAL HISTORY : None. ENCOUNTER: Initial ACUITY: 1 day PAIN SCORE: 0/10 LOCATION: Bilateral chest FINDINGS: A single view of the chest demonstrates the lungs to be symmetrically aerated without evidence of mas s, infiltrate or effusion. The cardiomediastinal contours are unremarkable. Osseous structures are intact. CONCLUSION: No acute disease. Armando Dodd MD on February 09, 2017 at 15:30 Board Certified Radiologist. This report was verified electronically.
--- NOTE | 2017-02-09 17:03 | HHI.PR ---
Review/Management Diagnosis probable transverse myelitis--improved with solumedrol CSF studies with elevated protein and elevated wbc c/w this dx but follow up on oligoclonal bands and myelin basic protein RBC in csf may be due to traumatic tap as the supernatant was clear and not xanthochromic Diagnosis/Plan: Subjective Subjective Comments No acute events reported He feels lower extremity strength is about the same Active Medications Current Medications Medications (Trade) Dose Ordered Sig/Rosalia Route Start Time Stop Time Status Last Admin (NS Flush) 2 ml UNSCH PRN IV FLUSH 01/23/17 00:30 02/01/17 05:07 (NS Flush) 2 ml BID IV FLUSH 01/23/17 09:00 02/09/17 09:08 (Tylenol) 650 mg Q4H PRN PO 01/23/17 00:30 (Zofran Inj) 4 mg Q6H PRN IVP 01/23/17 00:30 02/09/17 13:11 ([place] 5-325 Mg) 1 tab Q4H PRN PO 01/23/17 00:30 02/08/17 22:58 ([place] 7.5-325 Mg) 1 tab Q4H PRN PO 01/23/17 00:30 02/09/17 13:11 (Narcan Inj) 0.4 mg UNSCH PRN IV 01/23/17 00:30 ([place]-Colace) 1 tab BID PO 01/23/17 09:00 02/09/17 12:30 (Milk Of Magnesia Liq) 30 ml Q12H PRN PO 01/23/17 00:30 02/09/17 12:30 (Senokot) 17.2 mg Q12H PRN PO 01/23/17 00:30 02/09/17 12:30 (Dulcolax Supp) 10 mg DAILY PRN RECTAL 01/23/17 00:30 (D50w (Vial) Inj) 50 ml UNSCH PRN IV 01/23/17 07:45 (Glucagon Inj) 1 mg UNSCH PRN OTHER 01/23/17 07:45 (NovoLOG SUPPLEMENTAL SCALE) 1 ACHS SLIDING SCALE SQ 01/23/17 11:00 02/09/17 09:07 (Tenormin) 25 mg DAILY PO 01/24/17 13:00 Future Hold 02/08/17 08:08 (Lipitor) 10 mg HS PO 01/24/17 21:00 02/08/17 22:57 (Catapres) 0.1 mg Q6H PRN PO 01/24/17 18:00 01/28/17 12:34 (Norvasc) 5 mg DAILY PO 01/28/17 09:00 Future Hold 02/08/17 08:08 (NovoLOG INJ) 8 units TIDAC SQ 01/30/17 12:00 02/09/17 09:06 (Levemir Inj) 15 units HS SQ 02/02/17 21:00 02/08/17 22:58 (Restoril) 30 mg HS PRN PO 02/03/17 11:30 02/07/17 23:46 Allergies Allergies Coded Allergies levofloxacin (Verified Allergy, Severe, 01/22/17) Exam I&O / VS 02/09/17 02/09/17 02/10/17 15:00 23:00 07:00 # Voids 1 Vital Signs Date Time Temp Pulse Resp B/P (MAP) Pulse Ox O2 Delivery O2 Flow Rate FiO2 02/09/17 12:00 102.8 132 16 95/52 (66) 90 02/09/17 08:21 98.6 108 14 101/61 (74) 96 02/09/17 05:57 99.2 100 18 110/63 (79) 98 02/09/17 02:10 93 02/09/17 01:45 98.5 101 18 91/51 (64) 93 02/08/17 23:58 19 02/08/17 23:10 99.1 97 19 110/71 (84) 98 02/08/17 21:22 99.0 96 18 96/51 (66) 94 Exam Comments alert, speech normal CN intact MOTOR 5/5 BUE, 5/5 bilateral iliopsoas, 5/5 bilateral quadricep and hamstring and tibialis anterior Arreflexic BUE and BLE Objective Micro and Labs Date/Time Source Procedure Growth Status 01/22/17 21:05 Blood Peripheral Aerobic Blood Culture - Final NO GROWTH IN 5 DAYS Complete 01/22/17 21:05 Blood Peripheral Anaerobic Blood Culture - Final NO GROWTH IN 5 DAYS Complete 02/01/17 09:55 Cerebral Spinal Fluid Lumbar Puncture Fungal Smear - Final NO FUNGAL ELEMENTS SEEN. Resulted 02/01/17 09:55 Cerebral Spinal Fluid Lumbar Puncture Fungal Culture - Preliminary NO GROWTH IN 1 WEEK Resulted Chirag Crenshaw PhD Feb 09, 2017 17:03
[2017-02-09] MEDS: ACETAMINOPHEN 325 MG TAB PO PRN (20:49)
[2017-02-09] MEDS: INSULIN DETEMIR 100 UNITS/ML VIAL SQ SCH (20:49)
[2017-02-09] MEDS: ATORVASTATIN 10 MG TAB PO SCH (20:49)
[2017-02-10] VITALS (12 sets, daily range): BP systolic 66–109; BP diastolic 33–61; PULSE 105–125; RESP 18–25; TEMP 97.5–106; O2SAT 64–96
[2017-02-10] MEDS: MORPHINE SULFATE 4 MG/ML INJ IV PUSH PRN (06:36)
[2017-02-10] MEDS: ONDANSETRON HCL 4 MG/2 ML VIAL IVP PRN (06:45)
[2017-02-10] MEDS: INSULIN ASPART 1,000 UNITS/10 ML VIAL SQ SCH ×3 (08:00→16:41)
[2017-02-10] MEDS ORDERED: PANTOPRAZOLE SODIUM 40 MG VIAL IV PUSH SCH (08:00)
[2017-02-10] MEDS: INSULIN ASPART SUPPLEMENTAL SCALE SQ SCH ×3 (08:00→16:41)
--- NOTE | 2017-02-10 08:34 | HHI.PR ---
Subjective Remarks Follow-up for transverse myelitis and weakness. Mr. Kerr is resting in bed but complains of nausea, vomiting chito at night. He had episodes of nausea, vomiting with suspicion of aspiration as well. He has been having intermittent fever. Denies any chest pain, shortness of breath or abdominal pain. Has not had a bowel movement in 3 days. Objective Vitals Vital Signs Date Time Temp Pulse Resp B/P (MAP) Pulse Ox O2 Delivery O2 Flow Rate FiO2 02/10/17 06:49 18 02/10/17 04:17 99.4 105 18 109/56 (73) 95 02/10/17 00:52 117 02/10/17 00:00 100.1 109 18 100/57 (71) 96 02/09/17 22:00 17 02/09/17 21:42 99.1 112 18 88/56 (67) 94 02/09/17 20:52 101.0 103 17 96/63 (74) 02/09/17 20:19 18 02/09/17 18:04 107 02/09/17 16:00 99.4 118 17 102/56 (71) 92 02/09/17 12:00 102.8 132 16 95/52 (66) 90 I/O 02/09/17 02/09/17 02/09/17 02/10/17 02/10/17 02/10/17 07:00 15:00 23:00 07:00 15:00 23:00 Output Total 400 ml 150 ml 650 ml Balance -400 ml -150 ml -650 ml Output Urine Total 400 ml 150 ml 650 ml # Voids 1 3 # Bowel Movements 0 0 Result Diagram: 02/07/17 0845 Imaging Last Impressions Chest X-Ray 02/09/17 0000 Signed Impressions: Service Date/Time: Thursday, February 09, 2017 14:54 - CONCLUSION: No acute disease. Armando Dodd MD Wrist X-Ray 02/06/17 0000 Signed Impressions: Service Date/Time: Monday, February 06, 2017 12:50 - CONCLUSION: Minimally displaced distal radius and ulnar fractures. Armando Dodd MD Lumbar Puncture Fluoroscopy 02/01/17 0000 Signed Impressions: Service Date/Time: January 09:35 - CONCLUSION: Uncomplicated fluoroscopically guided lumbar puncture. CSF was clear. Nabeel Peralta MD Head Magnetic Resonance Angiography 01/27/17 Signed Impressions: Service Date/Time: Friday, January 27, 2017 10:33 - CONCLUSION: No intracranial vascular abnormality is identified. There is no aneurysm visualized. Angelo Allen MD IVC Filter Placement X-Ray 01/25/17 Signed Impressions: Service Date/Time: January 10:29 - CONCLUSION: Uncomplicated inferior vena cava filter placement as above. Yung Fowler MD Thoracic Spine MRI 01/24/17 Signed Impressions: Service Date/Time: Tuesday, January 24, 2017 22:29 - CONCLUSION: 1. Mild degenerative spondylosis most prominently at T11-L1 with slight effacement of the anterior thecal sac and left lateral recess. No significant neural foraminal stenosis. 2. No acute fracture. Juan Bhakta MD Renal Ultrasound 01/23/17 Signed Impressions: Service Date/Time: Monday, January 23, 2017 08:53 - CONCLUSION: 1. Evidence of chronic parenchymal disease of both kidneys. No obstructive uropathy or other acute abnormality demonstrated. 2. Trace ascites, nonspecific. Angelo Garrido MD Lumbar Spine MRI 01/23/17 Signed Impressions: Service Date/Time: Monday, January 23, 2017 17:01 - CONCLUSION: 1. At L4-5 is a broad-based disc protrusion with severe central canal and lateral recess stenosis and flattening of the exiting right L4 nerve root. 2. L5-S1 there is a disc protrusion and moderate stenosis with flattening of the exiting L5 nerve roots bilaterally. 3. At L3-4 there is a moderate to severe central stenosis and lateral recess stenosis with mild foraminal stenosis. 4. No acute fracture or spondylolisthesis. Trace Holloway MD Lower Extremity Ultrasound 01/23/17 Signed Impressions: Service Date/Time: Monday, January 23, 2017 09:53 - CONCLUSION: Bilateral focal lower extremity DVT involving the posterior tibial veins. Angelo Garrido MD Cervical Spine MRI 01/23/17 Signed Impressions: Service Date/Time: Monday, January 23, 2017 17:01 - CONCLUSION: 1. Multilevel cervical spine degenerative changes as above. 2. Mild degrees of spinal stenosis at C3/C4-C6/C7. No cord compression or cord signal abnormality. 3. Age indeterminate left paracentral/foraminal disc protrusion at C6/C7. 4. Multilevel foraminal stenosis, most severe on the left at C6/C7. Please see individual levels above. 5. No fracture or subluxation of the cervical spine. Angelo Garrido MD Brain MRI 01/23/17 0000 Signed Impressions: Service Date/Time: Monday, January 23, 2017 17:01 - CONCLUSION: 1. No acute stroke or other acute intracranial abnormality demonstrated. 2. Moderate severity chronic white matter changes, nonspecific but most likely related to chronic small vessel disease. 3. Few scattered tiny lacunar infarcts of the brainstem. 4. Given the findings are not entirely specific, clinical evaluation for possible multiple sclerosis recommended. Angelo Garrido MD Head CT 01/22/172202 Signed Impressions: Service Date/Time: Sunday, January 22, 2017 22:39 - CONCLUSION: Negative noncontrast CT Benjamin Person MD Knee X-Ray 01/22/172053 Signed Impressions: Service Date/Time: Sunday, January 22, 2017 21:17 - CONCLUSION: 1. Evidence of moderate to large joint effusion. 2. No acute fracture or malalignment. 3. Mild 3 compartment osteoarthritic change. Benjamin Person MD Hip and Pelvis X-Ray 01/22/172053 Signed Impressions: Service Date/Time: Sunday, January 22, 2017 21:10 - CONCLUSION: 1. Mild to moderate degenerative change of both hips with no acute fracture or malalignment. There is flattening and remodeling of the right humeral head. Benjamin Person MD Objective Remarks GENERAL: Alert, NAD. SKIN: Warm and dry. HEAD: Normocephalic. EYES: No scleral icterus. No injection or drainage. NECK: Supple, trachea midline. No JVD or lymphadenopathy. CARDIOVASCULAR: Regular rate and rhythm without murmurs, gallops, or rubs. RESPIRATORY: Breath sounds equal bilaterally. No accessory muscle use. GASTROINTESTINAL: Abdomen soft but could not appreciate bowel sound. No significant pain on palpation. MUSCULOSKELETAL: No cyanosis, or edema. BACK: Nontender without obvious deformity. No CVA tenderness. Procedures IVC filter placement 01/25/2017 LP 01/26/2017 A/P Problem List: (1) Distal end of ulna fracture, closed ICD Code: S52.609A - Unspecified fracture of lower end of unspecified ulna, initial encounter for closed fracture (2) Diabetes mellitus ICD Code: E11.9 - Type 2 diabetes mellitus without complications Assessment and Plan 61-year-old male with history of diabetes mellitus, gouty arthritis, COPD secondary to recurrent nephrolithiasis per the patient, presents with multiple complaints including bilateral lower extremity weakness, falls, right arm pain. - Possible abdominal obstruction - Patient is having nausea, vomiting, not able to keep anything down. - No appreciable bowel sounds. - Start Protonix 40mg IV Q12hrs - LR @100cc/hour. - Will also get KUB. If KUB indicates any obstruction, we will consider NG tube placement. Right Distal Ulna Oblique Fracture: RUE xray images reviewed. - consulted ortho, nonsurgical, recommends continuing splint, plan to transition to cast as outpatient - Continue norco prn pain - Continue PT/OT. When patient is somewhat improved, we will consider discharging home with his son. Hypotension -We'll hold blood pressure medications for now. We will consider re-starting if BP is elevated above > 150 systolic. - Patient has tachycardia in the low 100 range. If it persist will consider beta yani low-dose. Acute Renal Failure on CKD stage 3-4: no previous labs to compare. - No prior labs available for comparison Creatinine 3.7 --> 1.64. - avoid nephrotoxins - Renal U/S showed evidence of chronic parenchymal disease both kidneys; no obstructive uropathy Severe Lumbar Spine Stenosis/probable transverse myelitis/Significant Lower Extremity Weakness and Recurrent Falls: progressive over the past few months, failed outpatient physical therapy and acupuncture - C-spine MRI showed Multilevel cervical spine degenerative changes; Mild degrees of spinal stenosis at C3/C4-C6/C7; No cord compression or cord signal abnormality; Age indeterminate left paracentral/foraminal disc protrusion at C6/ C7; Multilevel foraminal stenosis, most severe on the left at C6/C7; No fracture or subluxation of the cervical spine. - L-spine MRI showed L4-5 broad-based disc protrusion with severe central canal and lateral recess stenosis and flattening of the exiting right L4 nerve root; L5-S1 there is a disc protrusion and moderate stenosis with flattening of the exiting L5 nerve roots bilaterally; At L3-4 there is a moderate to severe central stenosis and lateral recess stenosis with mild foraminal stenosis; No acute fracture or spondylolisthesis. - Brain MRI showed No acute stroke or other acute intracranial abnormality demonstrated; Moderate severity chronic white matter changes, nonspecific but most likely related to chronic small vessel disease; Few scattered tiny lacunar infarcts of the brainstem - Neurology and Neurosurgery consulted. Neurosurgery recommended nonoperative care with further management per neurology and has signed off. Neurology recommends stopping steroids and cleared for discharge from their standpoint. - Received high dose Solu-medrol 250mg Q6hrs X total 5 days, recommended to DC per neurology - Repeat LP shows mostly clear, previous LP showed blood in the CSF. Bilateral DVT: patient complains of BLE edema and both legs feel "full" and "heavy" - Doppler U/S positive for bilateral DVT. Heparin drip was started but has been on hold. - Patient underwent IVC filter placement on 01/25/2017 - Neurology recommends holding off on anticoagulation due to persistent blood and CSF Type 2 Diabetes Mellitus:Patient takes glipizide at home. - Continue Accu-Cheks before meals and at bedtime with low-dose NovoLog sliding scale coverage - HgbA1c 8.5 - Consulted highway patrol pilot and field crop harvest worker - Acute hyperglycemia due to steroid. - Increased Levemir to 15 units QHS, with better control overnight - Continue sliding scale insulin and pre-meal insulin with aspart. - Continue pre-meal insulin aspart 8 units 3 times a day before meals. - Expect sugars will improve and on the steroid discontinued. Full code. Heparin SQ. Problem Qualifiers (1) Diabetes mellitus: Qualified Codes: E11.9 - Type 2 diabetes mellitus without complications Kathryn Chairez DO Feb 10, 2017 8:34 am
[2017-02-10] MEDS: LACTATED RINGER'S 1000 ML INJ 1,000 ML IV SCH (08:52)
[2017-02-10] MEDS: SODIUM CHLORIDE 0.9% FLUSH 10 ML FLUSH IV FLUSH SCH ×2 (08:53→21:00)
[2017-02-10] MEDS: DOCUSATE SODIUM 50 MG/SENNA 8.6 MG TAB PO SCH ×2 (09:00→21:00)
--- NOTE | 2017-02-10 09:14 | RADRPT ---
EXAM DATE/TIME: 02/10/2017 08:14 [facility] COMPARISON: No previous studies available for comparison. INDICATIONS : Abdominal distension MEDICAL HISTORY : Diabetes mellitus type II. Hypertension Gout. SURGICAL HISTORY : None. ENCOUNTER: Initial ACUITY: 1 day PAIN SCORE: 5/10 LOCATION: Bilateral abdomen FINDINGS: 2 supine frontal views of the abdomen demonstrate air within small and large bowel in a nonobstructiv e pattern. There is mild distention of the stomach. IVC filter is present to the right of midline at the L3-L4 level. No organomegaly or abnormal calcifications are seen. No abnormal mass effect is appr eciated. The visualized bones demonstrates no abnormality. There are degenerative changes at the hip joints bilaterally. CONCLUSION: No acute abdominal abnormality is identified. Angelo Allen MD on February 10, 2017 at 9:11 Board Certified Radiologist. This report was verified electronically.
[2017-02-10] MEDS ORDERED: METOPROLOL TARTRATE 25 MG TAB PO ONE (12:30)
[2017-02-10 12:32] LABS: AUTOMATED NEUTROPHIL # 24.9 TH/MM3 (1.8-7.7); BASOPHIL # 0.1 TH/MM3 (0-0.2); BASOPHIL % 0.3 % (0.0-2.0); EOSINOPHIL # 0.1 TH/MM3 (0-0.4); EOSINOPHIL % 0.3 % (0.0-4.0); HEMATOCRIT 34.8 % (39.0-51.0); HEMO FLAGS DIFF FINAL; LYMPH % 3.6 % (9.0-44.0); MEAN CELL VOLUME 82.4 FL (80.0-100.0); MEAN CORPUSCULAR HEMOGLOBIN 26.6 PG (27.0-34.0); MEAN CORPUSCULAR HGB CONC 32.3 % (32.0-36.0); MONO % 6.1 % (0.0-8.0); NEUT % 89.7 % (16.0-70.0); PLATELET COUNT 241 TH/MM3 (150-450); RED BLOOD COUNT 4.22 MIL/MM3 (4.50-5.90); RED CELL DISTRIBUTION WIDTH 18.2 % (11.6-17.2); WHITE BLOOD COUNT 27.8 TH/MM3 (4.0-11.0)
[2017-02-10 12:49] LABS: BICARBONATE 29.2 MEQ/L (21.0-32.0); POTASSIUM 4.5 MEQ/L (3.5-5.1)
[2017-02-10] MEDS ORDERED: METOPROLOL TARTRATE 25 MG TAB PO SCH (14:00)
[2017-02-10] MEDS ORDERED: Vancomycin Consult Pharmacy 1 EA OTHER SCH ×2 (15:00→21:30)
[2017-02-10] MEDS ORDERED: VANCOMYCIN INJ 1,250 MG in SODIUM CHLOR 0.9% 250 ML INJ 250 ML IV ONE (17:00)
[2017-02-10] MEDS: CEFEPIME INJ 2,000 MG in SODIUM CHLORIDE 0.9% INJ 100 ML IV SCH (17:24)
--- NOTE | 2017-02-10 19:39 | RADRPT ---
EXAM DATE/TIME: 02/10/2017 18:46 [facility] COMPARISON: No previous studies available for comparison. INDICATIONS : Left arm swelling. MEDICAL HISTORY : Hypertension. Gastroesophageal reflux disease. Arthritis. Neck pain. Weakness. Kidney stones. Back pa in. Diabetes. Claustophobia. SURGICAL HISTORY : Nasal surgery. Stents in kidneys. ENCOUNTER: Initial ACUITY: 1 day PAIN SCORE: 4/10 LOCATION: Left arm. FINDINGS: There is occlusive thrombus noted in the cephalic vein starting at the mid upper arm. There is also o cclusive thrombus in the basilic vein starting at the mid forearm. There is spontaneous flow document ed in the brachial, axillary, and subclavian veins. The vessels are compressible and augmentation re sponse is documented. No filling defects are seen. The flow is phasic with respiration. Direction of flow in the jugular vein is caudal. CONCLUSION: Occlusive thrombus in the cephalic and basilic veins. Benjamin Person MD on February 10, 2017 at 19:37 Board Certified Radiologist. This report was verified electronically.
[2017-02-10] MEDS ORDERED: ETOMIDATE 20 MG/10 ML VIAL ONE (20:09)
[2017-02-10] MEDS ORDERED: ROCURONIUM INJ 50 MG/5 ML VIAL ONE (20:09)
[2017-02-10] MEDS ORDERED: NOREPINEPHRINE-DEXTROSE DRIP 250 ML IV ONE (20:09)
--- NOTE | 2017-02-10 20:20 | RADRPT ---
EXAM DATE/TIME: 02/10/2017 19:47 [facility] COMPARISON: CHEST SINGLE AP, February 09, 2017, 14:54. INDICATIONS : Shortness of breath. MEDICAL HISTORY : Diabetes mellitus type II. Hypertension. Gout. SURGICAL HISTORY : None. ENCOUNTER: Subsequent ACUITY: 2 days PAIN SCORE: Non-responsive. LOCATION: Bilateral chest FINDINGS: A single view of the chest are obtained and demonstrate mild streaky opacity in the left lung base. T he right lung is clear. There is no effusion. The cardiomediastinal contours are unremarkable. [place] us structures are intact. CONCLUSION: New mild streaky opacity in the left lung base which is of concern for early pneumonia. Benjamin Person MD on February 10, 2017 at 20:15 Board Certified Radiologist. This report was verified electronically.
[2017-02-10] MEDS: VASOPRESSIN INJ 40 UNITS in DEXTROSE 5% IN WATER 100ML INJ 98 ML IV SCH ×2 (20:21)
[2017-02-10] MEDS ORDERED: TERBUTALINE INJ 1 MG/ML AMP SQ PRN (20:30)
[2017-02-10 20:35] LABS: BLOOD GAS BASE EXCESS -0.2 mmol/L (-2-2); BLOOD GAS CARBOXYHEMOGLOBIN 1.4 % (0-4); BLOOD GAS HCO3 23 mmol/L (22-26); BLOOD GAS METHEMOGLOBIN 0.7 % (0-2); BLOOD GAS O2 HGB SATURATION 73 % (90-100); BLOOD GAS OXYGEN CONTENT 14.6 Vol % (12.0-20.0); BLOOD GAS PCO2 29 mmHg (38-42); BLOOD GAS PO2 40 mmHg (61-120); BLOOD GAS TOTAL HGB 14.2 G/DL (12.0-16.0); TEMP CORR TO 98.6
[2017-02-10 20:36] LABS: CRITICAL VALUE YES; DRAW SITE RT BRACHIAL; FIO2 100 %; LITER FLOW 15 L/M; OXYGEN DEVICE NONE REBREATHER
[2017-02-10 20:37] LABS: NUMBER OF ARTERIAL PUNCTURES 1; STAT YES
--- NOTE | 2017-02-10 20:49 | RADRPT ---
EXAM DATE/TIME: 02/10/2017 20:26 [facility] COMPARISON: CHEST SINGLE AP, February 10, 2017, 19:47. INDICATIONS : Shortness of breath status post intubation. MEDICAL HISTORY : Diabetes mellitus type II. Hypertension. Gout. SURGICAL HISTORY : None. ENCOUNTER: Subsequent ACUITY: 2 days PAIN SCORE: Non-responsive. LOCATION: Bilateral chest FINDINGS: Single AP semierect portable view of the chest was obtained and demonstrates interval placement of en dotracheal tube with the tip approximately 4 cm above the roxanna. There is coarse patchy opacity agai n noted and the left lung base. The right lung remains clear. There is no effusion. The heart size is within normal limits. Overlying oxygen tubing and electrocardiogram leads are present. CONCLUSION: 1. No intubation. 2. Worse opacity remains in the left lung base. Benjamin Person MD on February 10, 2017 at 20:46 Board Certified Radiologist. This report was verified electronically.
[2017-02-10] MEDS ORDERED: ACETAMINOPHEN 1000 MG/100 ML VIAL IV ONE (21:00)
[2017-02-10] MEDS: metroNIDAZOLE 500 MG INJ 100 ML IV SCH (21:00)
[2017-02-10] MEDS: ATORVASTATIN 10 MG TAB PO SCH (21:00)
[2017-02-10] MEDS: INSULIN DETEMIR 100 UNITS/ML VIAL SQ SCH (21:00)
[2017-02-10] MEDS ORDERED: LACTATED RINGER'S 1000 ML INJ 1,000 ML IV ONE ×2 (21:00→21:30)
--- NOTE | 2017-02-10 21:08 | HHI.PR ---
Addendum to Inpatient Note Addendum Reason: Additional Documentation Additional Information Responded to TANYAT at 2000: increasing oxygen requirements and tachycardia; ABGs and CXR ordered STAT; called attending [facility] reviewed [facility] quickly; CXR had been done and did not appear significantly different than prior; patient seen in severe respiratory distress with congested lung sounds; advised rapid transfer to ICU and call placed to Dr. Hogan crop supervisor for STAT consult and transfer of care; ABG results were not available to me at time of transfer. . Evelyne Tay Feb 10, 2017 21:08
[2017-02-10] MEDS ORDERED: VASOPRESSIN 20 UNITS/ML VIAL (IVTITR) ONE (21:12)
[2017-02-10] MEDS ORDERED: fentaNYL DRIP 250 ML IV PRN (21:30)
[2017-02-10] MEDS ORDERED: MIDAZOLAM 100 MG/100 ML INJ 100 ML IV PRN (21:30)
[2017-02-10] MEDS ORDERED: MIDAZOLAM HCL 2 MG/2 ML VIAL IV PUSH PRN (21:30)
[2017-02-10] MEDS ORDERED: MIDAZOLAM HCL 2 MG/2 ML VIAL IV PUSH ONE (21:30)
[2017-02-10 21:35] LABS: AUTOMATED NEUTROPHIL # 22.2 TH/MM3 (1.8-7.7); BASOPHIL # 0.2 TH/MM3 (0-0.2); BASOPHIL % 0.8 % (0.0-2.0); EOSINOPHIL # 0.1 TH/MM3 (0-0.4); EOSINOPHIL % 0.2 % (0.0-4.0); HEMATOCRIT 35.5 % (39.0-51.0); HEMO FLAGS DIFF FINAL; LYMPH % 5.9 % (9.0-44.0); LYMPHOCYTE # 1.5 TH/MM3 (1.0-4.8); MEAN CORPUSCULAR HEMOGLOBIN 26.1 PG (27.0-34.0); MEAN CORPUSCULAR HGB CONC 31.1 % (32.0-36.0); MONO % 7.2 % (0.0-8.0); NEUT % 85.9 % (16.0-70.0); PLATELET COUNT 330 TH/MM3 (150-450); RED BLOOD COUNT 4.23 MIL/MM3 (4.50-5.90); RED CELL DISTRIBUTION WIDTH 18.7 % (11.6-17.2); WHITE BLOOD COUNT 25.9 TH/MM3 (4.0-11.0)
[2017-02-10 21:49] LABS: MAGNESIUM 1.7 MG/DL (1.5-2.5)
[2017-02-10 21:53] LABS: INDIRECT BILIRUBIN 0.4 MG/DL (0.0-0.8); TOTAL BILIRUBIN ADULT 0.7 MG/DL (0.2-1.0)
[2017-02-10] MEDS ORDERED: MICAFUNGIN INJ 100 MG in SODIUM CHLORIDE 0.9% INJ 100 ML IV SCH (22:00)
--- NOTE | 2017-02-10 22:23 | PD.CONS ---
[facility] Service Critical Care Medicine Consult Requested By Jose Gordonist Service Reason for Consult Critical care management of acute respiratory failure Primary Care Physician Unknown History of Present Illness Patient is not able to provide history due to clinical condition. Date of admission: 01/22 Date of critical care medicine consult 02/10 due to acute hypoxemic respiratory failure requiring emergent intubation 62-year-old male with a past medical history of hypertension, hyperlipidemia, diabetes mellitus, gout, uric acid kidney stones, kidney disease of unknown stage who originally presented to [facility] emergency department on 01/22 after a fall in which he sustained a right distal ulna fracture. He had been experiencing a gradual primarily lower extremity weakness as well as upper extremity weakness that was progressive. Neurology consult was obtained. MRI revealed no acute stroke. He had multifocal white matter changes. Tiny lacunar infarcts of the brainstem. Lumbar MRI report states L4-L5 disc protrusion with cetnral canal stenosis. Dr. Blackwell evaluated and states no cord compression on MRI C/T spine and recommended nonoperative management. Symptoms were felt to be consistent with transverse myelitis and he underwent Solumedrol 250 mg IV q6 hours 01/27-02/02. He also was found to have occlusive thrombus in the bilateral posterior tibial veins. Heparin was being avoided because he had traumatic lumbar puncture on 01/26 and 02/01. IVC filter was placed 01/25. He was undergoing physical therapy, reportedly making some improvements with plan to eventually discharged home with his son (max assist standing, and bed to chair per PT note). Apparently he had some vomiting the evening of 02/09 and additional vomiting on 02/10. He had a fever 102.8 on 02/09. Last recorded bowel movement was 02/03. Tonight he had acute onset of severe hypoxemia and respiratory distress. Jaron called and he was brought emergently to [facility] where his sats were 64% on 100% nonrebreather with mean arterial pressure 44. He was emergently intubated, CVL and art line placed. He is in septic shock. Review of Systems ROS Limitations: Clinical Condition, Altered Mental Status Past Family Social History Allergies: Coded Allergies: levofloxacin (Verified Allergy, Severe, 01/22/17) Past Medical History Hypertension Hyperlipidemia Diabetes mellitus Gout Uric acid kidney stones Chronic kidney disease, unknown stage Past Surgical History Rhinoplasty Kidney stone removal with cystoscopy and ureteral stent Reported Medications Home medications included Atorvastatin 10 mEq by mouth daily at bedtime Atenolol 25 mg by mouth daily Norvasc 5 mg by mouth daily Hydrocodone 7.5/325 one by mouth every 4 hours when necessary pain Glipizide 5 mill grams by mouth twice a day Family History Unable to obtain from patient due to clinical condition. Reviewed EMR which indicates that his mother had diabetes, asthma, hypertension , heart disease. Father is reportedly alive without any significant medical history . Social History Unable to obtain from patient due to altered mental status and clinical condition. Reviewed EMR. Reportedly no history of tobacco. No recent history of alcohol use in the last 10-11 years. No illicit drug use. Physical Exam Vital Signs Vital Signs Date Time Temp Pulse Resp B/P (MAP) Pulse Ox O2 Delivery O2 Flow Rate FiO2 02/10/17 19:42 84 Partial Rebreather 15.00 100 02/10/17 19:42 84 15.00 100 02/10/17 16:00 97.5 119 20 96/58 (71) 91 02/10/17 12:00 100.0 117 20 91/55 (67) 90 02/10/17 08:00 99.0 124 18 107/61 (76) 85 02/10/17 06:49 18 02/10/17 04:17 99.4 105 18 109/56 (73) 95 02/10/17 00:52 117 02/10/17 00:00 100.1 109 18 100/57 (71) 96 Physical Exam GENERAL: Critically ill-appearing male who is profoundly tachypneic, minimally responsive with sats 60 per 6% on nonrebreather SKIN: Skin is very dry with poor skin turgor. There is a 2 cm stage II sacral decubitus ulcer. To the right of that is a 1 cm stage II sacral decubitus ulcer. There is sloughing of the skin throughout the buttocks. There is what appears to be Linda intertrigo in the crease of the left scrotal region and in the right inguinal crease. Erythema and warmth and induration of L antecubital region with purulent fluid expressed. HEAD: Atraumatic. Normocephalic. EYES: Pupils equal and round, 2 mm and reactive bilaterally. No scleral icterus. No injection or drainage. ENT: No nasal bleeding or discharge. Mucous membranes dry. No meningismus NECK: Trachea midline. No JVD. CARDIOVASCULAR: Tachycardic, sinus tachycardia on the monitor in the mid 130s. No murmurs rubs or gallops. RESPIRATORY: Tachypneic with accessory muscle use. Diminished breath sounds in the left base. Bilateral rhonchi. No wheezes. GASTROINTESTINAL: Abdomen soft, non-tender, nondistended. Bowel sounds are hypoactive. No hepatosplenomegaly appreciated. MUSCULOSKELETAL: Extremities without clubbing, cyanosis. There is no edema. The right wrist is in a Velcro splint. There are deformities of bilateral elbow , fingers, knees, toes c/w gout tophi. NEUROLOGICAL: Minimal spontaneous eye opening. No motor response to deep noxious stimuli. Not speaking (in severe respiratory distress) Laboratory Laboratory Tests Test 02/10/17 12:07 02/10/17 19:44 02/10/17 21:11 White Blood Count 27.8 25.9 Red Blood Count 4.22 4.23 Hemoglobin 11.2 11.0 Hematocrit 34.8 35.5 Mean Corpuscular Volume 82.4 84.0 Mean Corpuscular Hemoglobin 26.6 26.1 Mean Corpuscular Hemoglobin Concent 32.3 31.1 Red Cell Distribution Width 18.2 18.7 Platelet Count 241 330 Mean Platelet Volume 8.9 9.2 Neutrophils (%) (Auto) 89.7 85.9 Lymphocytes (%) (Auto) 3.6 5.9 Monocytes (%) (Auto) 6.1 7.2 Eosinophils (%) (Auto) 0.3 0.2 Basophils (%) (Auto) 0.3 0.8 Neutrophils # (Auto) 24.9 22.2 Lymphocytes # (Auto) 1.0 1.5 Monocytes # (Auto) 1.7 1.9 Eosinophils # (Auto) 0.1 0.1 Basophils # (Auto) 0.1 0.2 CBC Comment DIFF FINAL DIFF FINAL Differential Comment Blood Urea Nitrogen 36 Creatinine 3.24 Random Glucose 137 Calcium Level 8.2 Sodium Level 137 Potassium Level 4.5 Chloride Level 99 Carbon Dioxide Level 29.2 Anion Gap 9 Estimat Glomerular Filtration Rate 19 Lactic Acid Level 1.7 2.4 Blood Gas Puncture Site RT BRACHIAL Blood Gas Patient Temperature 98.6 Blood Gas HCO3 23 Blood Gas Base Excess -0.2 Blood Gas Oxygen Saturation 73 Arterial Blood pH 7.51 Arterial Blood Partial Pressure CO2 29 Arterial Blood Partial Pressure O2 40 Arterial Blood Oxygen Content 14.6 Arterial Blood Carboxyhemoglobin 1.4 Arterial Blood Methemoglobin 0.7 Blood Gas Hemoglobin 14.2 Oxygen Delivery Device NONE REBREATHER Blood Gas Liter Flow 15 Blood Gas Inspired Oxygen 100 Phosphorus Level 4.9 Magnesium Level 1.7 Total Bilirubin 0.7 Direct Bilirubin 0.3 Indirect Bilirubin 0.4 Aspartate Amino Transf (AST/SGOT) 22 Alanine Aminotransferase (ALT/SGPT) 19 Alkaline Phosphatase 107 Total Creatine Kinase 60 Troponin I 0.03 Total Protein 6.4 Albumin 1.7 Date/Time Source Procedure Growth Status 02/10/17 16:25 Blood Peripheral Aerobic Blood Culture Pending Received 02/10/17 16:25 Blood Peripheral Anaerobic Blood Culture Pending Received 02/01/17 09:55 Cerebral Spinal Fluid Lumbar Puncture Fungal Smear - Final NO FUNGAL ELEMENTS SEEN. Resulted 02/01/17 09:55 Cerebral Spinal Fluid Lumbar Puncture Fungal Culture - Preliminary NO GROWTH IN 1 WEEK Resulted Result Diagram: 02/10/17 2111 02/10/17 1207 Assessment and Plan Problem List: (1) Septic shock ICD Code: A41.9 - Sepsis, unspecified organism; R65.21 - Severe sepsis with septic shock Status: Acute (2) Acute respiratory failure ICD Code: J96.00 - Acute respiratory failure, unspecified whether with hypoxia or hypercapnia Status: Acute (3) Thrombophlebitis arm ICD Code: I80.8 - Phlebitis and thrombophlebitis of other sites (4) Aspiration pneumonia ICD Code: J69.0 - Pneumonitis due to inhalation of food and vomit Status: Acute (5) Atelectasis of left lung ICD Code: J98.11 - Atelectasis Status: Acute (6) Quadriparesis ICD Code: G82.50 - Quadriplegia, unspecified Status: Acute (7) DVT (deep venous thrombosis) ICD Code: I82.409 - Acute embolism and thrombosis of unspecified deep veins of unspecified lower extremity (8) Altered mental status ICD Code: R41.82 - Altered mental status, unspecified Status: Acute (9) CKD (chronic kidney disease) stage 3, GFR 30-59 ml/min ICD Code: N18.3 - Chronic kidney disease, stage 3 (moderate) Status: Chronic (10) Acute renal failure ICD Code: N17.9 - Acute kidney failure, unspecified Status: Acute (11) Diabetes mellitus ICD Code: E11.9 - Type 2 diabetes mellitus without complications Status: Chronic (12) Distal end of ulna fracture, closed ICD Code: S52.609A - Unspecified fracture of lower end of unspecified ulna, initial encounter for closed fracture Status: Acute (13) Gout ICD Code: M10.9 - Gout, unspecified Status: Chronic Assessment and Plan NEURO: Acute encephalopathy Recurrent falls Quadriparesis Suspected transverse myelitis. Received Solumedrol 250 mg IV every 6 hours 01/27- Had LP 01/26 and 02/01. CSF culture -01/26, 02/01 Oligoclonal bands negative. CSF/ serum IgG index is not elevated. VDRL nonreactive. Cryptococcal antigen negative. Brain MRI 01/23 no acute stroke. Few scattered lacunar infarcts of the brainstem. Moderate chronic white matter changes. MRI cervical/thoracic spine- mild spinal stenosis 3C3/C4 to C6/C7. No cord compression. RPR negative Neurology has been following, Dr. Crenshaw. Repeat CT brain 02/10 - negative RESP: Acute hypoxemic respiratory failure Left lower lobe collapse Intubated emergently 02/10. ACV TV 520 R 18 PEEP 8 FIO2 100%. Diagnostic and therapeutic bronchoscopy performed for left lower lobe. White mucous plugs removed and BAL sent. VQ scan 02/[address] PE CT chest02/10 - left lower lobe collapse and consolidation. Right lower lobe infiltrate. Endotracheal tube did get dislodged and was advanced by Dr. Hogan under direct laryngoscopy around 5:30 02/11. CV: Septic shock Hyperlipidemia History of hypertension Patient clinically appears dry. LR 2 L bolus now. LR 125 L per hour. Monitor intake and output hourly as indicated or perfusion. Serial lactic acid monitoring. Levophed to maintain mean arterial pressure greater than 65. Vasopressin 0.04 units per minute. Hydrocortisone 100 mg IV every 8 hours for relative adrenal insufficiency. Of note patient was also on high-dose steroids about 10 days ago. In sinus tach. Placed on Chele Trac for hemodynamic monitoring which is consistent with volume responsive state. Check ScVO2 Hold metoprolol 25 every 8 hours. Norvasc 5 mg daily has been on hold since On atorvastatin 10 mg daily at bedtime GI: Vomiting CT abdomen and pelvis 02/10atrophic left kidney. Bilateral inguinal hernias fat- containing. Nonobstructing 12 mm right kidney stone FEN/RENAL: Acute kidney injury Chronic kidney disease stage 3-4 History of uric acid kidney stones with prior stent Insert Sloan. Monitor intake and output q1hr.. Monitor electrolytes. RIOS/SPEP negative. Nephrology was following, signed off. Reconsult as needed. Patient is oliguric and may require CRRT ID: Septic shock Abscess and Suppurative thrombophlebitis left upper extremity Acute aspiration pneumonia Cefepime started per hospitalist 02/10. Adjust dose to 2 g IV every 24 hours. Initiated broad-spectrum antimicrobial coverage for healthcare associated organisms including vancomycin. Azithromycin for atypical coverage though this is less likely. Flagyl for atypical coverage in setting of aspiration. Given that he has been on high dose steroids and with suppurative thrombophlebitis added antifungal coverage with micafungin 150 mg IV q24 hours. Will consult surgery for I and D and probably embolectomy. Heparinize now for septic thrombophlebitis. ID consult. HEME: DVT, bilateral posterior tibial vein IVC filter Septic thrombophlebitis with occlusive thrombus mid cephalic and basilic vein Ultrasound 01/23/17 - Bilateral lower extremity with occlusive posterior tibial vein DVTs. Heparin was initially started for DVT but was placed on hold due to LP with suspected traumatic tap. IVC filter was placed 01/25/17. He has not been on a DVT prophylaxis. Last LP was 02/01. Discussed with Dr. Crenshaw who agrees appropriate to anticoagulate at this point. Ultrasound LUE 02/10 occlusive thrombus mid cephalic vein, basilic vein. ENDO: Diabetes mellitus Will place insulin aspartate 8 units 3 times a day on hold. Detemir was nonadministered per rn. Will check bedside glucose every 4 hours and administer medium dose insulin sliding scale as indicated. TSH was normal 01/23 MSK: Right distal ulna fracture. Dr. Nathan with orthopedics has evaluated and recommended nonoperative management. He has a right wrist splint in place. Gout PROPH: Famotidine for stress ulcer prophylaxis. Has IVC filter. Heparin drip initiated due to DVT/septic thrombophlebitis. ACCESS: Left IJ central venous line placed 02/10 #1. Left femoral art line placed 02/10 #1 Discussed with Evelyne Tay. Discussed with Dr. Crenshaw. Critical care time 90 minutes exclusive of separately billable procedures. Problem Qualifiers (1) Aspiration pneumonia: (2) DVT (deep venous thrombosis): Qualified Codes: I82.443 - Acute embolism and thrombosis of tibial vein, bilateral (3) Acute renal failure: Qualified Codes: N17.9 - Acute kidney failure, unspecified (4) Diabetes mellitus: (5) Gout: Belem Hogan MD Feb 10, 2017 22:23
--- NOTE | 2017-02-10 22:39 | PD.PROCEDR ---
Procedure Note Procedure PROCEDURE NOTE PROCEDURE: Endotracheal intubation INDICATION: Acute hypoxemic respiratory failure DETAILS OF PROCEDURE: Patient sats were 64-66% on nonrebreather upon arrival to [facility]. The patient was placed in optimal position and preoxygenated with 100% FiO2 via [id number]. Oximeter oxygen saturation of 69% was obtained prior to direct laryngoscopy. The patient was administered Etomidate 20 mg IV for sedation and Rocuronium 50 mg IV. Direct laryngoscopy was performed with a 3.0 Jaeger laryngoscope blade and a grade I Cormack-Lehane view was obtained. On single attempt a size 8 endotracheal tube was visualized passing through the cords. Correct placement was confirmed with colorimetric CO2 detector. Breath sounds were auscultated bilaterally however left base breath sounds were diminished even prior to intubation.. No sounds auscultated over the stomach. The endotracheal tube was secured with a commercial tube wagner at a depth of 21 cm at the lips. The patient was connected to the ventilator. The patient tolerated the procedure well without any apparent complication. Oxygen saturations were maintained greater than 69% at all times. Stat chest x-ray was ordered. Belem Hogan MD Feb 10, 2017 22:39
--- NOTE | 2017-02-10 22:40 | PD.PROCEDR ---
Central Line Procedure DATE: 02/10/17 CENTRAL LINE PLACEMENT: Left internal jugular vein. Ultrasound-guided INDICATION: Central venous access CONSENT Procedure was done emergently as patient was in extremis. He is in profound shock with a near code situation so was in his best interest to proceed with obtaining vascular access. DESCRIPTION OF THE PROCEDURE The patient was placed in supine position, mild Trendelenburg. The skin was cleansed with Chloraprep 3. Additional barrier precautions included large sterile drape, sterile gloves, sterile gown, face mask, and hat. 1 % lidocaine was used for local anesthesia. Under direct ultrasound guidance and on single attempt, the vein was accessed with an introducer needle. The guide wire was advanced and the tract was dilated. Using Seldinger technique a 7 [place] 20 cm antimicrobial coated triple-lumen catheter was advanced to a depth of 17 centimeters. The guide wire was removed. All ports had good return of dark venous blood and flushed easily with saline. The central line was secured with 2.0 silk. A sterile dressing with antibiotic disc was applied. ESTIMATED BLOOD LOSS: Minimal COMPLICATIONS: No apparent complications. STAT chest x-ray is pending Belem Hogan MD Feb 10, 2017 22:40
--- NOTE | 2017-02-10 22:43 | PD.PROCEDR ---
Procedure Note Procedure DATE: PROCEDURE: Left femoral arterial catheter placement INDICATION: Hemodynamic monitoring DETAILS OF PROCEDURE The patient was placed in supine position. The skin was cleansed with Chloraprep. Additional barrier precautions included large sterile drape, sterile gloves, sterile gown, face mask, and hat. 1% lidocaine was used for local anesthesia. Initial attempt 2 was performed blindly because ultrasound probe cover was initially not available. When ultrasound probe cover became available, the artery was accessed with an introducer needle on first attempt with direct ultrasound guidance. The guide wire was advanced. Using Seldinger technique 16 gauge arterial catheter was placed. The guide wire was removed. The catheter was connected to a transducer line and flushed with saline. The video monitor displayed normal arterial wave forms. The catheter was secured with 2-0 silk. A sterile dressing with antibiotic disc was applied. ESTIMATED BLOOD LOSS: minimal COMPLICATIONS: None Belem Hogan MD Feb 10, 2017 22:43
[2017-02-10] MEDS: FAMOTIDINE 20 MG/2 ML VIAL IV PUSH SCH (22:45)
[2017-02-10] MEDS ORDERED: AZITHROMYCIN INJ 500 MG in SODIUM CHLOR 0.9% 250 ML INJ 250 ML IV SCH (23:00)
[2017-02-10 23:25] LABS: LACTIC ACID GHOST NOT REPORTABLE
[2017-02-11] VITALS (18 sets, daily range): BP systolic 96–126; BP diastolic 56–80; PULSE 70–106; RESP 15–22; TEMP 96.8–101; O2SAT 94–100
--- NOTE | 2017-02-11 00:18 | RADRPT ---
EXAM DATE/TIME: 02/10/2017 22:17 [facility] COMPARISON: CHEST SINGLE AP, February 10, 2017, 20:26. INDICATIONS : Acute respiratory failure. History of DVT's. DOSE: 1.2 mCi Tc99m DTPA 8.0 mCi Tc99m MAA MEDICAL HISTORY : Hypertension. Diabetes mellitus type 2. Renal failure, chronic. Bilateral DVT's. SURGICAL HISTORY : IVC Filter placement. Ulna fx. ENCOUNTER: Initial ACUITY: 1 day PAIN SCALE: 0/10 LOCATION: chest TECHNIQUE: Following five minutes of tidal breathing of DTPA aerosol via ventilator, planar images of the lungs were performed in eight projections. The patient was then injected with MAA, and eight-view perfusio n scan was performed. FINDINGS: There is a homogeneous pattern of aerosol delivery to the periphery of both lungs. No focal ventilat ory defects are seen. There is some deposition of aerosol in the ET tube and peripheral tubing. The perfusion lung scan demonstrates a homogenous pattern of uptake in both lungs. No segmental or s ubsegmental defects are seen. Chest x-ray demonstrates partially consolidative infiltrates in the medial left lower lung. CONCLUSION: Low probability pulmonary embolism. Candido Patton MD on February 11, 2017 at 0:15 Board Certified Radiologist. This report was verified electronically.
--- NOTE | 2017-02-11 00:19 | RADRPT ---
EXAM DATE/TIME: 02/10/2017 23:51 [facility] COMPARISON: CT BRAIN W/O CONTRAST, January 22, 2017, 22:39. INDICATIONS : Altered mental status. RADIATION DOSE: 69.15 CTDIvol (mGy) MEDICAL HISTORY : Cardiovascular disease. Hypertension. Deep venous thrombosis.Diabetes SURGICAL HISTORY : None. ENCOUNTER: Initial ACUITY: 1 day PAIN SCALE: Non-responsive LOCATION: cranial TECHNIQUE: Multiple contiguous axial images were obtained of the head. Using automated exposure control and adj ustment of the mA and/or kV according to patient size, radiation dose was kept as low as reasonably a chievable to obtain optimal diagnostic quality images. DICOM format image data is available electro nically for review and comparison. FINDINGS: CEREBRUM: The ventricles are normal for age. No evidence of midline shift, mass lesion, hemorrhage or acute in farction. No extra-axial fluid collections are seen. POSTERIOR FOSSA: The cerebellum and brainstem are intact. The 4th ventricle is midline. The cerebellopontine angle i s unremarkable. EXTRACRANIAL: The visualized portion of the orbits is intact. SKULL: The calvaria is intact. No evidence of skull fracture. CONCLUSION: Negative noncontrast CT brain. Candido Patton MD on February 11, 2017 at 0:17 Board Certified Radiologist. This report was verified electronically.
--- NOTE | 2017-02-11 00:23 | RADRPT ---
EXAM DATE/TIME: 02/10/2017 23:56 [facility] COMPARISON: No previous studies available for comparison. INDICATIONS : Sepsis. Evaluate for pneumonia. RADIATION DOSE: 5.74 CTDIvol (mGy) ; Combined studies - Thorax/Abdomen/Pelvis MEDICAL HISTORY : Cardiovascular disease. Hypertension. Deep venous thrombosis. Diabetes SURGICAL HISTORY : None. ENCOUNTER: Initial ACUITY: 1 day PAIN SCALE: Non-responsive LOCATION: Bilateral chest TECHNIQUE: Volumetric scanning of the chest was performed. Using automated exposure control and adjustment of t he mA and/or kV according to patient size, radiation dose was kept as low as reasonably achievable to obtain optimal diagnostic quality images. DICOM format image data is available electronically for r eview and comparison. Follow-up recommendations for detected pulmonary nodules are based at a minimum on nodule size and pa tient risk factors according to Fleischner Society Guidelines. FINDINGS: LUNGS: There is collapse of the left lower lobe with dense consolidation and multisegmental air bronchograms . Some mild patchy infiltrates are present in the medial posterior right lower lung. PLEURAE: There is no pleural thickening or pleural effusion. MEDIASTINUM: The heart and great vessels demonstrate no acute abnormality. There is no mediastinal or hilar lymph adenopathy. Coronary artery calcifications. ET tube tip at the level of the clavicles. AXILLAE: Within normal limits. No lymphadenopathy. MUSCULOSKELETAL: Within normal limits for patient age. CONCLUSION: Left lower lobe collapse with consolidation. Patchy infiltrates the medial right lower lung. Candido Patton MD on February 11, 2017 at 0:18 Board Certified Radiologist. This report was verified electronically.
--- NOTE | 2017-02-11 00:30 | RADRPT ---
EXAM DATE/TIME: 02/10/2017 23:59 [facility] COMPARISON: LUNG VENTILATION & PERFUSION SCAN, February 10, 2017, 22:17. INDICATIONS : Spesis. Evaluate for abscess. ORAL CONTRAST: No oral contrast ingested. RADIATION DOSE: 5.74 CTDIvol (mGy) ; Combined studies - Thorax/Abdomen/Pelvis MEDICAL HISTORY : Cardiovascular disease. Hypertension. Deep venous thrombosis.Diabetes SURGICAL HISTORY : None. ENCOUNTER: Initial ACUITY: 1 day PAIN SCALE: Non-responsive LOCATION: abdomen TECHNIQUE: Volumetric scanning of the abdomen and pelvis was performed. Using automated exposure control and ad justment of the mA and/or kV according to patient size, radiation dose was kept as low as reasonably achievable to obtain optimal diagnostic quality images. DICOM format image data is available electro nically for review and comparison. FINDINGS: LOWER LUNGS: Left lower lobe collapse with prominent air bronchograms. LIVER: Homogeneous density without lesion for noncontrast technique. There is no dilation of the biliary tr ee. No calcified gallstones. SPLEEN: Normal size without lesion. PANCREAS: Within normal limits. KIDNEYS: Nonobstructing 12 mm calcified stone in the right lower pole and some linear calcification in the ext rarenal pelvis. The right ureter is mildly dilated however no calcified stones seen. On the left si de, there is severe cortical thinning of the left kidney and decrease in long axis length to 6.7 cm. No calcified stones on the left side.. ADRENAL GLANDS: Within normal limits. VASCULAR: There is no aortic aneurysm. BOWEL/MESENTERY: No dilated loops of small or large bowel. Gastric tube tip in the gastric antrum. ABDOMINAL WALL: Within normal limits. RETROPERITONEUM: There is no lymphadenopathy. IVC filter in place. BLADDER: Sloan catheter in nondistended bladder. REPRODUCTIVE: Within normal limits. INGUINAL: Bilateral fat-containing inguinal hernias, large on the right and moderate on the left. MUSCULOSKELETAL: Moderately severe degenerative changes both hips. CONCLUSION: 1. Nonobstructing 12 mm calcified stone lower pole right kidney. 2. Atrophic left kidney with significant cortical thinning. 3. Bilateral fat-containing inguinal hernias, large on the right, and moderate on the left. 4. Consolidative collapse of the left lower lobe. Candido Patton MD on February 11, 2017 at 0:22 Board Certified Radiologist. This report was verified electronically.
[2017-02-11] MEDS: CEFEPIME INJ 2,000 MG in SODIUM CHLORIDE 0.9% INJ 100 ML IV SCH (00:55)
[2017-02-11] MEDS: HYDROCORTISONE SOD SUCCINATE 100 MG VIAL IV PUSH SCH ×4 (00:55→20:57)
[2017-02-11] MEDS ORDERED: PHENYLEPHRINE HCL 10 MG/ML VIAL ONE (01:00)
[2017-02-11 01:12] LABS: BLOOD GAS CARBOXYHEMOGLOBIN 0.9 % (0-4); BLOOD GAS HCO3 21 mmol/L (22-26); BLOOD GAS METHEMOGLOBIN 0.8 % (0-2); BLOOD GAS O2 HGB SATURATION 90 % (90-100); BLOOD GAS OXYGEN CONTENT 13.6 Vol % (12.0-20.0); BLOOD GAS PCO2 45 mmHg (38-42); BLOOD GAS PO2 74 mmHg (61-120); BLOOD GAS TOTAL HGB 10.7 G/DL (12.0-16.0); TEMP CORR TO 98.6
[2017-02-11 01:13] LABS: CRITICAL VALUE NO; OXYGEN DEVICE VENTILATOR
[2017-02-11 01:14] LABS: DRAW SITE ART LINE; FIO2 100 %; STAT NO; VENT SETTINGS AC/RR15/VT500/PEEP8
--- NOTE | 2017-02-11 01:58 | RADRPT ---
EXAM DATE/TIME: 02/11/2017 01:21 [facility] COMPARISON: CHEST SINGLE AP, February 10, 2017, 20:26. INDICATIONS : Left I-J central line placement. MEDICAL HISTORY : Cardiovascular disease. Hypertension Diabetes mellitus type II. DVT SURGICAL HISTORY : None. ENCOUNTER: Subsequent ACUITY: 3 weeks PAIN SCORE: Non-responsive. LOCATION: Left chest FINDINGS: ET tube tip well above the roxanna.. Left internal jugular catheter has been placed with the tip proj ected over the proximal superior vena cava. No evidence pneumothorax. Gastric tube has also been pl aced and traverses the [id number]. Interval development of consolidation in the medial left lower lung with loss of delineation of the medial left hemidiaphragm. The right lung is clear. CONCLUSION: 1. Left IJ catheter in good position. No evidence of pneumothorax. 2. Interval development of dense consolidation in the left lower lobe. Candido Patton MD on February 11, 2017 at 1:55 Board Certified Radiologist. This report was verified electronically.
[2017-02-11] MEDS ORDERED: LACTATED RINGER'S 1000 ML INJ 1,000 ML IV ONE (02:00)
[2017-02-11] MEDS ORDERED: MIDAZOLAM HCL 5 MG/ML VIAL (1 ML) ONE (02:14)
[2017-02-11] MEDS ORDERED: ROCURONIUM INJ 50 MG/5 ML VIAL ONE ×2 (02:15→05:20)
--- NOTE | 2017-02-11 02:33 | PD.PROCEDR ---
Procedure Note Procedure Date: 02/11/17 Procedure: Diagnostic and therapeutic bronchoscopy with bronchoalveolar lavage Indication: Acute severe hypoxemic respiratory failure with left lower lobe collapse Details of procedure: Procedure was performed emergently as patient has severe hypoxemia and left lower lobe collapse and unable to reach family. It isn't patient's best interest to proceed with procedure emergently. The patient was preoxygenated with 100% FiO2 via endotracheal tube/vent and sedated with Versed 4 mg IV and rocuronium 50 mg IV. I entered the endotracheal tube with a flexible bronchoscope. Bronchoscope was advanced to left lower lobe where there was a large white mucous plug present that was removed with suctioning and with irrigation with total of 20 ML of NS. There was minimal white mucous present in left upper lobe. The right pulmonary tree was explored as well. Right upper lobe was free of secretions. There was moderate white mucous suctioned from right middle lobe and right lower lobe with the assistance of 5 cc normal saline wash 2. The bronchoscope was then advanced into the lingula. Normal saline 40 ML was instilled for bronchoalveolar lavage. There was 20 ML of cloudy fluid return that was sent for Gram stain, culture, sensitivity. At the completion of the procedure the left lower lobe bronchus was patent. The mucosa of the left lower lobe was slightly friable with some suction trauma present.. There were no endobronchial lesions. The bronchoscope was removed. Patient tolerated the procedure well. Sats were 100% throughout. Endotracheal tube was secured at 23 cm upon completion Belem Hogan MD Feb 11, 2017 02:33
[2017-02-11] MEDS: LACTATED RINGER'S 1000 ML INJ 1,000 ML IV SCH ×2 (02:35→10:36)
[2017-02-11] MEDS ORDERED: MICAFUNGIN INJ 100 MG in SODIUM CHLORIDE 0.9% INJ 100 ML IV ONE (03:00)
[2017-02-11] MEDS: metroNIDAZOLE 500 MG INJ 100 ML IV SCH ×2 (03:01→09:33)
[2017-02-11 04:57] LABS: AUTOMATED NEUTROPHIL # 27.6 TH/MM3 (1.8-7.7); BASOPHIL # 0.1 TH/MM3 (0-0.2); BASOPHIL % 0.5 % (0.0-2.0); EOSINOPHIL % 0.1 % (0.0-4.0); HEMATOCRIT 33.4 % (39.0-51.0); HEMO FLAGS DIFF FINAL; LYMPH % 1.3 % (9.0-44.0); LYMPHOCYTE # 0.4 TH/MM3 (1.0-4.8); MEAN CELL VOLUME 85.1 FL (80.0-100.0); MEAN CORPUSCULAR HEMOGLOBIN 26.7 PG (27.0-34.0); MEAN CORPUSCULAR HGB CONC 31.4 % (32.0-36.0); MONO % 2.2 % (0.0-8.0); NEUT % 95.9 % (16.0-70.0); PLATELET COUNT 231 TH/MM3 (150-450); RED BLOOD COUNT 3.92 MIL/MM3 (4.50-5.90); RED CELL DISTRIBUTION WIDTH 18.3 % (11.6-17.2); WHITE BLOOD COUNT 28.8 TH/MM3 (4.0-11.0)
[2017-02-11 05:08] LABS: ALT (GPT) 18 U/L (12-78); ANION GAP 9 MEQ/L (5-15); AST (GOT) 28 U/L (15-37); BICARBONATE 25.3 MEQ/L (21.0-32.0); BLOOD UREA NITROGEN 40 MG/DL (7-18); CHLORIDE 101 MEQ/L (98-107); GLOMERULAR FILTRATION RATE 17 ML/MIN (>89); POTASSIUM 5.2 MEQ/L (3.5-5.1); SODIUM (NA) 135 MEQ/L (136-145)
[2017-02-11 05:11] LABS: ALKALINE PHOSPHATASE 91 U/L (45-117); CALCIUM-PROTEIN CORRECTED 8.5 MG/DL (8.5-10.1); CREATINE KINASE 170 U/L (39-308); TOTAL BILIRUBIN ADULT 0.5 MG/DL (0.2-1.0)
[2017-02-11 05:14] LABS: BLOOD GAS BASE EXCESS -9.3 mmol/L (-2-2); BLOOD GAS CARBOXYHEMOGLOBIN 0.5 % (0-4); BLOOD GAS HCO3 19 mmol/L (22-26); BLOOD GAS O2 HGB SATURATION 94 % (90-100); BLOOD GAS OXYGEN CONTENT 13.1 Vol % (12.0-20.0); BLOOD GAS PCO2 66 mmHg (38-42); BLOOD GAS PO2 105 mmHg (61-120); BLOOD GAS TOTAL HGB 9.8 G/DL (12.0-16.0); CRITICAL VALUE YES; OXYGEN DEVICE VENTILATOR; TEMP CORR TO 98.6
[2017-02-11 05:15] LABS: DRAW SITE ART LINE; FIO2 100 %; STAT NO; VENT SETTINGS AC/15/500/PEEP8
[2017-02-11] MEDS ORDERED: ETOMIDATE 20 MG/10 ML VIAL ONE (05:20)
[2017-02-11 05:30] LABS: CKMB 1.2 NG/ML (0.5-3.6)
[2017-02-11] MEDS ORDERED: GLUCAGON 1 MG/ML VIAL OTHER PRN (05:45)
[2017-02-11] MEDS ORDERED: DEXTROSE 50% IN WATER 50 ML VIAL(D50) IV PUSH PRN ×2 (05:45→15:00)
--- NOTE | 2017-02-11 05:53 | RADRPT ---
EXAM DATE/TIME: 02/11/2017 05:03 [facility] COMPARISON: CHEST SINGLE AP, February 11, 2017, 1:21. INDICATIONS : Respiratory failure, post bronch, ET tube repositioned. MEDICAL HISTORY : Cardiovascular disease. Hypertension Diabetes mellitus type II. DVT SURGICAL HISTORY : None. ENCOUNTER: Subsequent ACUITY: 3 weeks PAIN SCORE: Non-responsive. LOCATION: Bilateral chest FINDINGS: The examination is performed on an egg crate pad. ET tube tip is 5.2 cm above the roxanna. Left cent ral line tip projects over the origin of the superior vena cava. Gastric tube traverses the field-of -view. There is persistent left lower lung consolidation with loss of delineation of the medial left hemidiaphragm. There are also new patchy areas of airspace infiltrate in the lower right lung.. CONCLUSION: Stable left lower lung consolidation and new patchy areas of right lower lung infiltrate. Candido Patton MD on February 11, 2017 at 5:50 Board Certified Radiologist. This report was verified electronically.
[2017-02-11] MEDS ORDERED: INSULIN ASPART SUPPLEMENTAL SCALE SQ SCH (06:00)
[2017-02-11] MEDS: INSULIN ASPART SUPPLEMENTAL SCALE SQ SCH ×3 (06:03→13:47)
[2017-02-11 06:19] LABS: BLOOD GAS BASE EXCESS -6.2 mmol/L (-2-2); BLOOD GAS CARBOXYHEMOGLOBIN 0.7 % (0-4); BLOOD GAS HCO3 22 mmol/L (22-26); BLOOD GAS METHEMOGLOBIN 0.7 % (0-2); BLOOD GAS O2 HGB SATURATION 92 % (90-100); BLOOD GAS OXYGEN CONTENT 13.9 Vol % (12.0-20.0); BLOOD GAS PCO2 66 mmHg (38-42); BLOOD GAS PO2 85 mmHg (61-120); BLOOD GAS TOTAL HGB 10.7 G/DL (12.0-16.0); CRITICAL VALUE YES; OXYGEN DEVICE VENTILATOR; TEMP CORR TO 98.6
[2017-02-11 06:20] LABS: DRAW SITE ART LINE; FIO2 100 %; STAT NO; VENT SETTINGS AC/RR18/VT520/PEEP8
[2017-02-11 06:22] LABS: BLOOD GAS VENOUS BASE EXCESS -5.1 mmol/L (-2-2); BLOOD GAS VENOUS HCO3 23 mmol/L (22-26); BLOOD GAS VENOUS O2 CONTENT 11.7 Vol % (9.0-17.0); BLOOD GAS VENOUS O2 HGB SAT 76 % (70-76); BLOOD GAS VENOUS PCO2 75 mmHg (44-48); BLOOD GAS VENOUS PO2 55 mmHg (35-40); BLOOD GAS VENOUS pH 7.12 (7.360-7.400); TEMP CORR TO 98.6
[2017-02-11 06:23] LABS: CRITICAL VALUE YES; FIO2 100 %; OXYGEN DEVICE VENTILATOR; VENT SETTINGS AC/RR18/VT520/PEEP5
[2017-02-11] MEDS ORDERED: SODIUM BICARBONATE 8.4% INJ 50 MEQ/50 ML SYR ONE (06:39)
--- NOTE | 2017-02-11 06:39 | HHI.CCPN ---
Subjective Remarks/Hospital Course Date of admission: 01/22 Date of critical care medicine consult 02/10 due to acute hypoxemic respiratory failure requiring emergent intubation 62-year-old male with a past medical history of hypertension, hyperlipidemia, diabetes mellitus, gout, uric acid kidney stones, kidney disease of unknown stage who originally presented to [facility] emergency department on 01/22 after a fall in which he sustained a right distal ulna fracture. He had been experiencing a gradual primarily lower extremity weakness as well as upper extremity weakness that was progressive. Neurology consult was obtained. MRI revealed no acute stroke. He had multifocal white matter changes. Tiny lacunar infarcts of the brainstem. Lumbar MRI report states L4-L5 disc protrusion with cetnral canal stenosis. Dr. Blackwell evaluated and states no cord compression on MRI C/T spine and recommended nonoperative management. Symptoms were felt to be consistent with transverse myelitis and he underwent Solumedrol 250 mg IV q6 hours 01/27-02/02. He also was found to have occlusive thrombus in the bilateral posterior tibial veins. Heparin was being avoided because he had traumatic lumbar puncture on 01/26 and 02/01. IVC filter was placed 01/25. He was undergoing physical therapy, reportedly making some improvements with plan to eventually discharged home with his son (max assist standing, and bed to chair per PT note). Apparently he had some vomiting the evening of 02/09 and additional vomiting on 02/10. He had a fever 102.8 on 02/09. Last recorded bowel movement was 02/03. Tonight he had acute onset of severe hypoxemia and respiratory distress. Jaron called and he was brought emergently to [facility] where his sats were 64% on 100% nonrebreather with mean arterial pressure 44. He was emergently intubated, CVL and art line placed. He is in septic shock. SUBJ: 02/11: Patient remains intubated sedated, critically ill. FiO2 reduced to 80% after increasing PEEP to 12. In severe septic shock Levophed at 16 mcg/m, vasopressin at 0.04 international units. D/W vascular surgery Dr. Enciso. He performed bedside Left upper extremity incision and debridement and excision of septic cephalic vein. Objective Vital Signs Date Time Temp Pulse Resp B/P (MAP) Pulse Ox O2 Delivery O2 Flow Rate FiO2 02/11/17 05:36 97 100 02/11/17 04:00 96.9 98 15 112/62 (79) 02/10/17 21:15 15.00 02/10/17 19:42 Partial Rebreather Intake and Output 02/11/17 02/11/17 02/12/17 08:00 16:00 00:00 Intake Total 5973 ml Output Total 925 ml Balance 5048 ml Result Diagram: 02/11/17 0420 02/11/17 0420 Other Results Laboratory Tests Test 02/10/17 19:44 02/11/17 00:54 02/11/17 04:59 02/11/17 06:03 Blood Gas Puncture Site RT BRACHIAL ART LINE ART LINE ART LINE Blood Gas Patient Temperature 98.6 98.6 98.6 98.6 Blood Gas HCO3 23 mmol/L (22-26) 21 mmol/L (22-26) 19 mmol/L (22-26) 22 mmol/L (22-26) Blood Gas Base Excess -0.2 mmol/L (-2-2) -4.0 mmol/L (-2-2) -9.3 mmol/L (-2-2) -6.2 mmol/L (-2-2) Blood Gas Oxygen Saturation 73 % (90-100) 90 % (90-100) 94 % (90-100) 92 % ( 90-100) Arterial Blood pH 7.51 (7.380-7.420) 7.30 (7.380-7.420) 7.09 (7.380-7.420) 7.14 (7.380-7.420) Arterial Blood Partial Pressure CO2 29 mmHg (38-42) 45 mmHg (38-42) 66 mmHg (38-42) 66 mmHg (38-42) Arterial Blood Partial Pressure O2 40 mmHg (61-120) 74 mmHg (61-120) 105 mmHg (61-120) 85 mmHg (61-120) Arterial Blood Oxygen Content 14.6 Vol % (12.0-20.0) 13.6 Vol % (12.0-20.0) 13.1 Vol % (12.0-20.0) 13.9 Vol % (12.0-20.0) Arterial Blood Carboxyhemoglobin 1.4 % (0-4) 0.9 % (0-4) 0.5 % (0-4) 0.7 % (0-4) Arterial Blood Methemoglobin 0.7 % (0-2) 0.8 % (0-2) 1.0 % (0-2) 0.7 % (0-2) Blood Gas Hemoglobin 14.2 G/DL (12.0-16.0) 10.7 G/DL (12.0-16.0) 9.8 G/DL (12.0-16.0) 10.7 G/DL (12.0-16.0) Oxygen Delivery Device NONE REBREATHER VENTILATOR VENTILATOR VENTILATOR Blood Gas Liter Flow 15 L/M Blood Gas Inspired Oxygen 100 % 100 % 100 % 100 % Blood Gas Ventilator Setting AC/RR15/VT500/PEEP8 AC/15/500/PEEP8 AC/RR18/VT520/PEEP8 Test 02/11/17 06:05 Blood Gas Puncture Site C.LINE Blood Gas Patient Temperature 98.6 Venous Blood pH 7.12 (7.360-7.400) Venous Blood Partial Pressure CO2 75 mmHg (44-48) Venous Blood Partial Pressure O2 55 mmHg (35-40) Venous Blood HCO3 23 mmol/L (22-26) Venous Blood Oxygen Saturation 76 % (70-76) Venous Blood Oxygen Content 11.7 Vol % (9.0-17.0) Venous Blood Base Excess -5.1 mmol/L (-2-2) Oxygen Delivery Device VENTILATOR Blood Gas Ventilator Setting AC/RR18/VT520/PEEP5 Blood Gas Inspired Oxygen 100 % Objective Remarks GENERAL: Critically ill-appearing male who is intubated heavily sedated on 2 pressors SKIN: Skin is very dry with poor skin turgor. 2 cm stage II sacral decubitus ulcer, to the right of that is a 1 cm stage II sacral decubitus ulcer. There is sloughing of the skin throughout the buttocks. Linda intertrigo in the crease of the left scrotal region and in the right inguinal crease. Erythema and warmth and induration of L antecubital region with purulent fluid expressed. HEAD: Atraumatic. Normocephalic. EYES: Pupils equal and round, 2 mm and reactive bilaterally. No scleral icterus. No injection or drainage. ENT: No nasal bleeding or discharge. Mucous membranes dry. No meningismus NECK: Trachea midline. No JVD. CARDIOVASCULAR: Tachycardic, sinus tachycardia on the monitor in the mid 100s. No murmurs rubs or gallops. Currently on high-dose Levophed and vasopressin RESPIRATORY: Intubated sedated hypoxemic PEEP increased to 12. Diminished breath sounds in the left base. Bilateral rhonchi. No wheezes. GASTROINTESTINAL: Abdomen soft, non-tender, nondistended. Bowel sounds are hypoactive. No hepatosplenomegaly appreciated. MUSCULOSKELETAL: Extremities without clubbing, cyanosis. There is no edema. The right wrist is in a Velcro splint. There are deformities of bilateral elbow , fingers, knees, toes c/w gout tophi. NEUROLOGICAL: Intubated sedated. Neuromuscular blockade given 30 minutes ago limits neuro exam. 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 Received Solumedrol 250 mg IV every 6 hours 01/27-, started on stress dose steroids yesterday Had LP 01/26 and 02/01. CSF culture negative 01/26, 02/01 Oligoclonal bands negative. CSF/serum IgG index is not elevated. VDRL nonreactive. Cryptococcal antigen negative. Brain MRI 01/23 no acute stroke. Few scattered lacunar infarcts of the brainstem. Moderate chronic white matter changes. MRI cervical/thoracic spine- mild spinal stenosis 3C3/C4 to C6/C7. No cord compression. RPR negative Neurology has been following, Dr. Crenshaw. Repeat CT brain 02/10 - negative RESP: Acute hypoxemic respiratory failure Left lower lobe collapse Probable healthcare associated pneumonia Intubated emergently 02/10. ACV TV 600 (increased from 520) R 18 PEEP 12 ( increased from 8) FIO2 80%. Diagnostic and therapeutic bronchoscopy performed for left lower lobe. White mucous plugs removed and BAL sent. VQ scan 02/[address] PE CT chest02/10 - left lower lobe collapse and consolidation. Right lower lobe infiltrate. Endotracheal tube did get dislodged and was advanced by Dr. Hogan under direct laryngoscopy around 5:30 02/11. DuoNeb every 6 hours scheduled and when necessary Follow-up on cultures CV: Septic shock Hyperlipidemia History of hypertension Patient clinically appears dry. Continue aggressive fluid resuscitation. Monitor intake and output hourly as indicated or perfusion. Serial lactic acid monitoring. Levophed to maintain mean arterial pressure greater than 65. Vasopressin 0.04 units per minute. Hydrocortisone 100 mg IV every 8 hours for relative adrenal insufficiency. Of note patient was also on high-dose steroids about 10 days ago. Placed on Chele Trac for hemodynamic monitoring which is consistent with volume responsive state. Check ScVO2 Hold metoprolol 25 every 8 hours. Norvasc 5 mg daily has been on hold since On atorvastatin 10 mg daily at bedtime GI: Hx of Vomiting CT abdomen and pelvis 02/10atrophic left kidney. Bilateral inguinal hernias fat- containing. Nonobstructing 12 mm right kidney stone FEN/RENAL: Acute kidney injury Chronic kidney disease stage 3-4 History of uric acid kidney stones with prior stent Continue Sloan. Monitor intake and output q1hr. Monitor electrolytes. RIOS/SPEP negative. Nephrology was following, signed off. Reconsulted. Patient is oliguric and may require CRRT ID: Septic shock Abscess and Suppurative thrombophlebitis left upper extremity Gram-positive bacteremia most likely staph aureus Acute aspiration pneumonia Cefepime started per hospitalist 02/10. Adjust dose to 2 g IV every 24 hours. Continue vancomycin and Flagyl. DC azithromycin Source of sepsis most likely septic thrombophlebitis, status post I&D and excision of infected cephalic vein by Dr. Enciso Given that he has been on high dose steroids and with suppurative thrombophlebitis added antifungal coverage with micafungin 150 mg IV q24 hours. Heparinize now for septic thrombophlebitis. ID consult. HEME: DVT, bilateral posterior tibial vein IVC filter Septic thrombophlebitis with occlusive thrombus mid cephalic and basilic vein Ultrasound 01/23/17 - Bilateral lower extremity with occlusive posterior tibial vein DVTs. Heparin was initially started for DVT but was placed on hold due to LP with suspected traumatic tap. Restart Heparin today IVC filter was placed 01/25/17. He has not been on a DVT prophylaxis. Last LP was 02/01. Discussed with Dr. Crenshaw who agrees appropriate to anticoagulate at this point. Ultrasound LUE 02/10 occlusive thrombus mid cephalic vein, basilic vein. ENDO: Diabetes mellitus, with hyperglycemia Will place insulin aspartate 8 units 3 times a day on hold. Detemir -will place on hold. Check bedside glucose every 4 hours and administer medium dose insulin sliding scale as indicated. Start Insulin gtt TSH was normal 01/23 MSK: Right distal ulna fracture. Dr. Nathan with orthopedics has evaluated and recommended nonoperative management. He has a right wrist splint in place. Gout PROPH: Famotidine for stress ulcer prophylaxis. Has IVC filter. Heparin drip initiated due to DVT/septic thrombophlebitis. ACCESS: Left IJ central venous line placed 02/10 #1. Left femoral art line placed 02/10 #1 CCT 45 MIN Antonietta Stephens MD Feb 11, 2017 06:39
[2017-02-11] MEDS ORDERED: SODIUM BICARBONATE 8.4% INJ 50 MEQ/50 ML SYR IV PUSH ONE (06:45)
[2017-02-11 07:38] LABS: BLOOD GAS BASE EXCESS -4.4 mmol/L (-2-2); BLOOD GAS CARBOXYHEMOGLOBIN 0.9 % (0-4); BLOOD GAS HCO3 22 mmol/L (22-26); BLOOD GAS METHEMOGLOBIN 0.7 % (0-2); BLOOD GAS O2 HGB SATURATION 88 % (90-100); BLOOD GAS OXYGEN CONTENT 12.8 Vol % (12.0-20.0); BLOOD GAS PCO2 58 mmHg (38-42); BLOOD GAS PO2 67 mmHg (61-120); BLOOD GAS TOTAL HGB 10.4 G/DL (12.0-16.0); CRITICAL VALUE YES; DRAW SITE ART LINE; FIO2 80 %; OXYGEN DEVICE VENTILATOR; STAT NO; TEMP CORR TO 98.6; ULNAR PULSE PRESENT; VENT SETTINGS AC/18/600/PEEP12
[2017-02-11 07:48] LABS: APTT (PATIENT) 41.7 SEC (24.3-30.1); INTERNATIONAL NORMALIZED RATIO 1.3 RATIO
[2017-02-11] MEDS: HEPARIN-D5W 25,000 U/250 ML 250 ML IV PRN ×2 (07:49→23:09)
[2017-02-11] MEDS ORDERED: LIDOCAINE HCL 1% 50 ML VIAL ONE ×2 (08:46→08:47)
[2017-02-11] MEDS: SODIUM CHLORIDE 0.9% FLUSH 10 ML FLUSH IV FLUSH SCH ×2 (09:00→20:57)
[2017-02-11] MEDS ORDERED: HEPARIN SODIUM - SQ 10,000 UNITS/ML VIAL SQ SCH (09:00)
[2017-02-11] MEDS: NOREPINEPHRINE-DEXTROSE DRIP 250 ML IV PRN ×2 (09:33→18:34)
[2017-02-11] MEDS: DOCUSATE SODIUM 50 MG/SENNA 8.6 MG TAB PO SCH ×2 (09:33→20:58)
--- NOTE | 2017-02-11 09:33 | PD.VS.CON ---
History of Present Illness Chief Complaint: intubated for cardiovascular collapse. Concern for left upper extremity abscess with infiltrated vein with purulent drainage. Consult Requested by: History of Present Illness 62 year old with hx of cardiovascular collapse with increasing leukocytosis. Past/Family/Social History Home Medications Active Scripts Hydrocodone-Acetaminophen (Hydrocodone-Acetaminophen) 7.5-325 mg Tab, 1 TAB PO Q4H Y for PAIN SCALE 6 TO 10, #30 TAB Prov:Kathryn Chairez DO 02/05/17 Amlodipine (Norvasc) 5 Mg Tab, 5 MG PO DAILY for Blood Pressure Management, #90 TAB Prov:Kathryn Chairez DO 02/05/17 Wheelchair Elevated Leg (Wheelchair Elevated Leg) 1 Mis Mis, EA DIRECTED, #1 0 Refills Prov:Kathryn Chairez DO 02/01/17 Commode 3-in-1 (Commode 3-in-1) 1 Mis Mis, EA .ROUTE DIRECTED, #1 0 Refills Prov:Kathryn Chairez DO 02/01/17 Reported Medications Atorvastatin (Atorvastatin) 10 Mg Tab, 10 MG PO HS for Cholesterol Management, # 30 TAB 0 Refills 01/24/17 Glipizide (Glipizide) 5 Mg Tab, 5 MG PO BIDAC for Blood Sugar Management, #60 TAB 0 Refills Take 30 minutes before a meal 01/23/17 Atenolol (Atenolol) 25 Mg Tab, 25 MG PO DAILY for Blood Pressure Management, # 30 TAB 01/23/17 Discontinued Reported Medications Tramadol (Tramadol) 50 Mg Tab, 50 MG PO Q6H Y for PAIN SCALE 1 TO 10, TAB 0 Refills 01/24/17 Amlodipine (Amlodipine) 10 Mg Tab, 10 MG PO DAILY for Blood Pressure Management , #30 TAB 0 Refills 01/24/17 Prednisone (Prednisone) 10 Mg Tab, 10 MG PO DAILY, TAB 0 Refills 01/23/17 Coded Allergies: levofloxacin (Verified Allergy, Severe, 01/22/17) Physical Exam Vitals/I&O Date Time Temp Pulse Resp B/P (MAP) Pulse Ox O2 Delivery O2 Flow Rate FiO2 02/11/17 08:02 95 80 02/11/17 05:36 97 100 02/11/17 05:30 100 100 02/11/17 04:36 99 100 02/11/17 04:00 100 02/11/17 04:00 96.9 98 15 112/62 (79) 99 02/11/17 02:10 100 100 02/11/17 02:10 100 100 02/11/17 01:51 100 100 02/11/17 00:30 100 100 02/11/17 00:00 101.0 106 22 120/56 (77) 94 02/11/17 00:00 100 02/10/17 22:45 96 100 02/10/17 21:30 20 02/10/17 21:15 92 15.00 100 02/10/17 21:00 106.0 02/10/17 21:00 105.4 124 25 97/55 (69) 92 02/10/17 21:00 125 02/10/17 20:53 93 100 02/10/17 20:21 120 120/80 02/10/17 20:15 106.0 122 24 66/33 (44) 64 02/10/17 20:09 115 02/10/17 19:42 84 Partial Rebreather 15.00 100 02/10/17 19:42 84 15.00 100 02/10/17 16:00 97.5 119 20 96/58 (71) 91 02/10/17 12:00 100.0 117 20 91/55 (67) 90 02/11/17 02/11/17 02/11/17 07:00 15:00 23:00 Intake Total 5973 ml Output Total 925 ml Balance 5048 ml Vascular: left radial artery with signals. Extremities: left arm above antecubital fossa with induration,warmth and fluctuance. approximately 3x4 cm area. Laboratory Tests Test 02/10/17 12:07 02/10/17 19:44 02/10/17 21:11 02/11/17 00:40 White Blood Count 27.8 25.9 Red Blood Count 4.22 4.23 Hemoglobin 11.2 11.0 Hematocrit 34.8 35.5 Mean Corpuscular Volume 82.4 84.0 Mean Corpuscular Hemoglobin 26.6 26.1 Mean Corpuscular Hemoglobin Concent 32.3 31.1 Red Cell Distribution Width 18.2 18.7 Platelet Count 241 330 Mean Platelet Volume 8.9 9.2 Neutrophils (%) (Auto) 89.7 85.9 Lymphocytes (%) (Auto) 3.6 5.9 Monocytes (%) (Auto) 6.1 7.2 Eosinophils (%) (Auto) 0.3 0.2 Basophils (%) (Auto) 0.3 0.8 Neutrophils # (Auto) 24.9 22.2 Lymphocytes # (Auto) 1.0 1.5 Monocytes # (Auto) 1.7 1.9 Eosinophils # (Auto) 0.1 0.1 Basophils # (Auto) 0.1 0.2 CBC Comment DIFF FINAL DIFF FINAL Differential Comment Blood Urea Nitrogen 36 Creatinine 3.24 Random Glucose 137 Calcium Level 8.2 Sodium Level 137 Potassium Level 4.5 Chloride Level 99 Carbon Dioxide Level 29.2 Anion Gap 9 Estimat Glomerular Filtration Rate 19 Lactic Acid Level 1.7 2.4 1.4 Blood Gas Puncture Site RT BRACHIAL Blood Gas Patient Temperature 98.6 Blood Gas HCO3 23 Blood Gas Base Excess -0.2 Blood Gas Oxygen Saturation 73 Arterial Blood pH 7.51 Arterial Blood Partial Pressure CO2 29 Arterial Blood Partial Pressure O2 40 Arterial Blood Oxygen Content 14.6 Arterial Blood Carboxyhemoglobin 1.4 Arterial Blood Methemoglobin 0.7 Blood Gas Hemoglobin 14.2 Oxygen Delivery Device NONE REBREATHER Blood Gas Liter Flow 15 Blood Gas Inspired Oxygen 100 Phosphorus Level 4.9 Magnesium Level 1.7 Total Bilirubin 0.7 Direct Bilirubin 0.3 Indirect Bilirubin 0.4 Aspartate Amino Transf (AST/SGOT) 22 Alanine Aminotransferase (ALT/SGPT) 19 Alkaline Phosphatase 107 Total Creatine Kinase 60 Troponin I 0.03 Total Protein 6.4 Albumin 1.7 Lipase 277 Test 02/11/17 00:54 02/11/17 04:20 02/11/17 04:59 02/11/17 06:03 Blood Gas Puncture Site ART LINE ART LINE ART LINE Blood Gas Patient Temperature 98.6 98.6 98.6 Blood Gas HCO3 21 19 22 Blood Gas Base Excess -4.0 -9.3 -6.2 Blood Gas Oxygen Saturation 90 94 92 Arterial Blood pH 7.30 7.09 7.14 Arterial Blood Partial Pressure CO2 45 66 66 Arterial Blood Partial Pressure O2 74 105 85 Arterial Blood Oxygen Content 13.6 13.1 13.9 Arterial Blood Carboxyhemoglobin 0.9 0.5 0.7 Arterial Blood Methemoglobin 0.8 1.0 0.7 Blood Gas Hemoglobin 10.7 9.8 10.7 Oxygen Delivery Device VENTILATOR VENTILATOR VENTILATOR Blood Gas Ventilator Setting AC/RR15/VT500/PEEP8 AC/15/500/PEEP8 AC/RR18/VT520/PEEP8 Blood Gas Inspired Oxygen 100 100 100 White Blood Count 28.8 Red Blood Count 3.92 Hemoglobin 10.5 Hematocrit 33.4 Mean Corpuscular Volume 85.1 Mean Corpuscular Hemoglobin 26.7 Mean Corpuscular Hemoglobin Concent 31.4 Red Cell Distribution Width 18.3 Platelet Count 231 Mean Platelet Volume 9.1 Neutrophils (%) (Auto) 95.9 Lymphocytes (%) (Auto) 1.3 Monocytes (%) (Auto) 2.2 Eosinophils (%) (Auto) 0.1 Basophils (%) (Auto) 0.5 Neutrophils # (Auto) 27.6 Lymphocytes # (Auto) 0.4 Monocytes # (Auto) 0.6 Eosinophils # (Auto) 0.0 Basophils # (Auto) 0.1 CBC Comment DIFF FINAL Differential Comment Blood Urea Nitrogen 40 Creatinine 3.73 Random Glucose 281 Total Protein 5.2 Albumin 1.3 Calcium Level 7.4 Alkaline Phosphatase 91 Aspartate Amino Transf (AST/SGOT) 28 Alanine Aminotransferase (ALT/SGPT) 18 Total Bilirubin 0.5 Sodium Level 135 Potassium Level 5.2 Chloride Level 101 Carbon Dioxide Level 25.3 Anion Gap 9 Estimat Glomerular Filtration Rate 17 Protein Corrected Calcium 8.5 Total Creatine Kinase 170 Creatine Kinase MB 1.2 Troponin I 0.19 Test 02/11/17 06:05 02/11/17 07:21 02/11/17 07:23 Blood Gas Puncture Site C.LINE ART LINE Blood Gas Patient Temperature 98.6 98.6 Venous Blood pH 7.12 Venous Blood Partial Pressure CO2 75 Venous Blood Partial Pressure O2 55 Venous Blood HCO3 23 Venous Blood Oxygen Saturation 76 Venous Blood Oxygen Content 11.7 Venous Blood Base Excess -5.1 Oxygen Delivery Device VENTILATOR VENTILATOR Blood Gas Ventilator Setting AC/RR18/VT520/PEEP5 AC/18/600/PEEP12 Blood Gas Inspired Oxygen 100 80 Prothrombin Time 14.0 Prothromb Time International Ratio 1.3 Activated Partial Thromboplast Time 41.7 Blood Gas HCO3 22 Blood Gas Base Excess -4.4 Blood Gas Oxygen Saturation 88 Arterial Blood pH 7.21 Arterial Blood Partial Pressure CO2 58 Arterial Blood Partial Pressure O2 67 Arterial Blood Oxygen Content 12.8 Arterial Blood Carboxyhemoglobin 0.9 Arterial Blood Methemoglobin 0.7 Blood Gas Hemoglobin 10.4 Date/Time Source Procedure Growth Status 02/10/17 16:25 Blood Peripheral Aerobic Blood Culture - Preliminary Gram Positive Cocci Resulted 02/10/17 16:25 Anaerobic Blood Culture - Preliminary Gram Positive Cocci Resulted 02/01/17 09:55 Cerebral Spinal Fluid Lumbar Puncture Fungal Smear - Final NO FUNGAL ELEMENTS SEEN. Resulted 02/01/17 09:55 Cerebral Spinal Fluid Lumbar Puncture Fungal Culture - Preliminary NO GROWTH IN 1 WEEK Resulted 02/11/17 02:30 Sputum Endotracheal Gram Stain - Final Resulted 02/11/17 02:30 Sputum Endotracheal Sputum Culture Pending Resulted 02/11/17 02:30 Abscess Arm Gram Stain - Final Resulted 02/11/17 02:30 Abscess Arm Wound Culture Pending Resulted Last 48 hours Impressions Chest X-Ray 02/11/17 0000 Signed Impressions: Service Date/Time: Saturday, February 11, 2017 05:03 - CONCLUSION: Stable left lower lung consolidation and new patchy areas of right lower lung infiltrate. Candido Patton MD Upper Extremity Ultrasound 02/10/17 0000 Signed Impressions: Service Date/Time: Friday, February 10, 2017 18:46 - CONCLUSION: Occlusive thrombus in the cephalic and basilic veins. Benjamin Person MD Lung Scan- Nuclear Medicine 02/10/17 0000 Signed Impressions: Service Date/Time: Friday, February 10, 2017 22:17 - CONCLUSION: Low probability pulmonary embolism. Candido Patton MD Head CT 02/10/17 0000 Signed Impressions: Service Date/Time: Friday, February 10, 2017 23:51 - CONCLUSION: Negative noncontrast CT brain. Candido Patton MD Chest X-Ray 02/10/17 0000 Signed Impressions: Service Date/Time: Saturday, February 11, 2017 01:21 - CONCLUSION: 1. Left IJ catheter in good position. No evidence of pneumothorax. 2. Interval development of dense consolidation in the left lower lobe. Candido Patton MD Chest X-Ray 02/10/17 0000 Signed Impressions: Service Date/Time: Friday, February 10, 2017 20:26 - CONCLUSION: 1. No intubation. 2. Worse opacity remains in the left lung base. Benjamin Person MD Chest X-Ray 02/10/17 0000 Signed Impressions: Service Date/Time: Friday, February 10, 2017 19:47 - CONCLUSION: New mild streaky opacity in the left lung base which is of concern for early pneumonia. Benjamin Person MD Chest CT 02/10/17 0000 Signed Impressions: Service Date/Time: Friday, February 10, 2017 23:56 - CONCLUSION: Left lower lobe collapse with consolidation. Patchy infiltrates the medial right lower lung. Candido Patton MD Abdomen/Pelvis CT 02/10/17 Signed Impressions: Service Date/Time: Friday, February 10, 2017 23:59 - CONCLUSION: 1. Nonobstructing 12 mm calcified stone lower pole right kidney. 2. Atrophic left kidney with significant cortical thinning. 3. Bilateral fat-containing inguinal hernias, large on the right, and moderate on the left. 4. Consolidative collapse of the left lower lobe. Candido Patton MD Abdomen X-Ray 02/10/17 Signed Impressions: Service Date/Time: Friday, February 10, 2017 08:14 - CONCLUSION: No acute abdominal abnormality is identified. Angelo Allen MD Assessment and Plan Assessment: (1) Thrombophlebitis arm Plan 62 year old with exudative thrombophelbitis in septic shock on multiple pressors (levophed and vasopressin) Bedside I&D with continued antibiotics. Emergent consent as son not available. Salo Bravo DO, FACS. Salo Bravo DO Feb 11, 2017 09:33
--- NOTE | 2017-02-11 10:43 | PD.CONS ---
History of Present Illness Service Infectious disease Consult Requested By Dr Radha Hogan Reason for Consult Evaluate patient with septic shock Primary Care Physician Unknown Diagnoses: History of Present Illness Patient seen and examined. Records reviewed. Patient is a 62-year-old male, admitted to the hospital for evaluation of pain in his right wrist. He gave a history of falling about a week ago and apparently had immediate pain in the right wrist. He did not seek any medical attention initially because reportedly he was very busy. He eventually presented, and he was found to have a distal ulnar fracture on plain films. He also had some redness and swelling. Orthopedics saw the patient, and was being treated conservatively with the splint. During this hospitalization also he started complaining of generalized weakness but more so in his lower extremity than his upper extremity. He had swelling in both lower extremity which revealed evidence of DVT in the posterior tibial veins. Neurology had seen the patient and he underwent lumbar puncture which apparently was traumatic. Patient was therefore not given anticoagulation because of the traumatic LP, and he underwent placement of an IVC filter on January 25. Patient had another lumbar puncture on February 01. He was felt to have transverse myelitis, and he was given high-dose IV Solu-Medrol from January 27 to February 02. There was apparently some improvement in his weakness. The imaging studies done for his weakness showed some spinal stenosis, and neurosurgery was consult that and recommended that there was no surgical intervention to be done. Patient has been stabilizing, but last night apparently deteriorated, and he ended up getting intubated, and had significant hypotension requiring pressors. There was also an ultrasound done of his left upper extremity which showed DVT, and there was evidence of superior 2 thrombophlebitis. Vascular surgery was consult to it and he had IND on his left upper extremity. Patient has had some fevers since yesterday. 2 blood cultures were done yesterday and they're now reported as growing gram-positive cocci in [place] in clusters. He is currently sedated and intubated. He is on Levophed and vasopressin. A central line was placed as well as a femoral a line. He apparently had an IV in his left upper extremity and that was removed yesterday. Patient also has history of chronic kidney disease, and nephrology evaluated the patient. He was just being monitored for his renal insufficiency. Infectious disease consultation has been requested to evaluate the patient. Review of Systems ROS Limitations: Clinical Condition, Intubated Past Family Social History Allergies: Coded Allergies: levofloxacin (Verified Allergy, Severe, 01/22/17) Past Medical History Gouty arthritis Chronic kidney disease Hx multiple kidney stones Hypertension GERD Diabetes Past Surgical History Rhinoplasty Kidney stone removal with cystoscopy and ureteral stent Reported Medications Reported Meds & Active Scripts Active Hydrocodone-Acetaminophen 7.5-325 mg Tab 1 Tab PO Q4H PRN Norvasc (Amlodipine Besylate) 5 Mg Tab 5 Mg PO DAILY Wheelchair Elevated Leg (Device) 1 Mis Mis Ea DIRECTED Commode 3-in-1 (Device) 1 Mis Mis Ea .ROUTE DIRECTED Reported Atorvastatin (Atorvastatin Calcium) 10 Mg Tab 10 Mg PO HS Glipizide 5 Mg Tab 5 Mg PO BIDAC Take 30 minutes before a meal Atenolol 25 Mg Tab 25 Mg PO DAILY Active Ordered Medications Tylenol Newton Lipitor Zithromax Dulcolax Cefepime Clonidine Pepcid Fentanyl Heparin Solu-Cortef Insulin MOM Flagyl Versed Morphine Levophed Zofran Vasopressin Edna-Colace Senokot Restoril Vancomycin Family History Mother had diabetes, asthma, hypertension, heart disease. Father is reportedly alive without any significant medical history Social History Reportedly no history of tobacco. No recent history of alcohol use in the last 10-11 years. No illicit drug use. Physical Exam Vital Signs Vital Signs Date Time Temp Pulse Resp B/P (MAP) Pulse Ox O2 Delivery O2 Flow Rate FiO2 02/11/17 09:33 96 109/69 02/11/17 08:02 95 80 02/11/17 05:36 97 100 02/11/17 05:30 100 100 02/11/17 04:36 99 100 02/11/17 04:00 100 02/11/17 04:00 96.9 98 15 112/62 (79) 99 02/11/17 02:10 100 100 02/11/17 02:10 100 100 02/11/17 01:51 100 100 02/11/17 00:30 100 100 02/11/17 00:00 101.0 106 22 120/56 (77) 94 02/11/17 00:00 100 02/10/17 22:45 96 100 02/10/17 21:30 20 02/10/17 21:15 92 15.00 100 02/10/17 21:00 106.0 02/10/17 21:00 105.4 124 25 97/55 (69) 92 02/10/17 21:00 125 02/10/17 20:53 93 100 02/10/17 20:21 120 120/80 02/10/17 20:15 106.0 122 24 66/33 (44) 64 02/10/17 20:09 115 02/10/17 19:42 84 Partial Rebreather 15.00 100 02/10/17 19:42 84 15.00 100 02/10/17 16:00 97.5 119 20 96/58 (71) 91 02/10/17 12:00 100.0 117 20 91/55 (67) 90 Physical Exam GENERAL: Patient is a well-nourished, well-developed CM, sedated on the vent , looks mildly dyspneic SKIN: Cool and dry. No generalized rash, no ecchymoses and no evidence of embolic lesions. HEAD: Atraumatic. Normocephalic. No temporal wasting, or tenderness. EYES: Lester conjunctiva. No petechia or hemorrhage. Pupils equal, round and reactive to light. No scleral icterus. No injection or drainage. EARS, NOSE AND THROAT: Nose without bleeding or purulent nasal discharge. He is orally intubated NECK: Trachea midline. Supple and no meningeal signs CARDIOVASCULAR: Regular rate and rhythm. Soft heart sounds. No murmurs, rubs or gallops heard RESPIRATORY: Clear to auscultation. Breath sounds equal bilaterally. No rales , wheezing or rhonchi ABDOMEN: Soft, nondistended, bowel sounds present and normoactive, no reaction to palpation. No guarding. EXTREMITIES: No clubbing, cyanosis. Both hands edematous. Has evidence of multiple gouty tophi in both hands and feet. Cool extremities but no mottling. LUE - there is a 2.5 cm incision with packing, has bloody drainage and there is surrounding erythema NEUROLOGICAL: Sedated PSYCHIATRIC: Unable to assess LINE: Multiple lines with no evidence of infection (new and place 02/10, [facility], L femoral Rosy, RUE PIV) : Sloan in place, urine looks clear Laboratory Laboratory Tests Test 02/10/17 12:07 02/10/17 19:44 02/10/17 21:11 02/11/17 00:40 White Blood Count 27.8 25.9 Red Blood Count 4.22 4.23 Hemoglobin 11.2 11.0 Hematocrit 34.8 35.5 Mean Corpuscular Volume 82.4 84.0 Mean Corpuscular Hemoglobin 26.6 26.1 Mean Corpuscular Hemoglobin Concent 32.3 31.1 Red Cell Distribution Width 18.2 18.7 Platelet Count 241 330 Mean Platelet Volume 8.9 9.2 Neutrophils (%) (Auto) 89.7 85.9 Lymphocytes (%) (Auto) 3.6 5.9 Monocytes (%) (Auto) 6.1 7.2 Eosinophils (%) (Auto) 0.3 0.2 Basophils (%) (Auto) 0.3 0.8 Neutrophils # (Auto) 24.9 22.2 Lymphocytes # (Auto) 1.0 1.5 Monocytes # (Auto) 1.7 1.9 Eosinophils # (Auto) 0.1 0.1 Basophils # (Auto) 0.1 0.2 CBC Comment DIFF FINAL DIFF FINAL Differential Comment Blood Urea Nitrogen 36 Creatinine 3.24 Random Glucose 137 Calcium Level 8.2 Sodium Level 137 Potassium Level 4.5 Chloride Level 99 Carbon Dioxide Level 29.2 Anion Gap 9 Estimat Glomerular Filtration Rate 19 Lactic Acid Level 1.7 2.4 1.4 Blood Gas Puncture Site RT BRACHIAL Blood Gas Patient Temperature 98.6 Blood Gas HCO3 23 Blood Gas Base Excess -0.2 Blood Gas Oxygen Saturation 73 Arterial Blood pH 7.51 Arterial Blood Partial Pressure CO2 29 Arterial Blood Partial Pressure O2 40 Arterial Blood Oxygen Content 14.6 Arterial Blood Carboxyhemoglobin 1.4 Arterial Blood Methemoglobin 0.7 Blood Gas Hemoglobin 14.2 Oxygen Delivery Device NONE REBREATHER Blood Gas Liter Flow 15 Blood Gas Inspired Oxygen 100 Phosphorus Level 4.9 Magnesium Level 1.7 Total Bilirubin 0.7 Direct Bilirubin 0.3 Indirect Bilirubin 0.4 Aspartate Amino Transf (AST/SGOT) 22 Alanine Aminotransferase (ALT/SGPT) 19 Alkaline Phosphatase 107 Total Creatine Kinase 60 Troponin I 0.03 Total Protein 6.4 Albumin 1.7 Lipase 277 Test 02/11/17 00:54 02/11/17 04:20 02/11/17 04:59 02/11/17 06:03 Blood Gas Puncture Site ART LINE ART LINE ART LINE Blood Gas Patient Temperature 98.6 98.6 98.6 Blood Gas HCO3 21 19 22 Blood Gas Base Excess -4.0 -9.3 -6.2 Blood Gas Oxygen Saturation 90 94 92 Arterial Blood pH 7.30 7.09 7.14 Arterial Blood Partial Pressure CO2 45 66 66 Arterial Blood Partial Pressure O2 74 105 85 Arterial Blood Oxygen Content 13.6 13.1 13.9 Arterial Blood Carboxyhemoglobin 0.9 0.5 0.7 Arterial Blood Methemoglobin 0.8 1.0 0.7 Blood Gas Hemoglobin 10.7 9.8 10.7 Oxygen Delivery Device VENTILATOR VENTILATOR VENTILATOR Blood Gas Ventilator Setting AC/RR15/VT500/PEEP8 AC/15/500/PEEP8 AC/RR18/VT520/PEEP8 Blood Gas Inspired Oxygen 100 100 100 White Blood Count 28.8 Red Blood Count 3.92 Hemoglobin 10.5 Hematocrit 33.4 Mean Corpuscular Volume 85.1 Mean Corpuscular Hemoglobin 26.7 Mean Corpuscular Hemoglobin Concent 31.4 Red Cell Distribution Width 18.3 Platelet Count 231 Mean Platelet Volume 9.1 Neutrophils (%) (Auto) 95.9 Lymphocytes (%) (Auto) 1.3 Monocytes (%) (Auto) 2.2 Eosinophils (%) (Auto) 0.1 Basophils (%) (Auto) 0.5 Neutrophils # (Auto) 27.6 Lymphocytes # (Auto) 0.4 Monocytes # (Auto) 0.6 Eosinophils # (Auto) 0.0 Basophils # (Auto) 0.1 CBC Comment DIFF FINAL Differential Comment Blood Urea Nitrogen 40 Creatinine 3.73 Random Glucose 281 Total Protein 5.2 Albumin 1.3 Calcium Level 7.4 Alkaline Phosphatase 91 Aspartate Amino Transf (AST/SGOT) 28 Alanine Aminotransferase (ALT/SGPT) 18 Total Bilirubin 0.5 Sodium Level 135 Potassium Level 5.2 Chloride Level 101 Carbon Dioxide Level 25.3 Anion Gap 9 Estimat Glomerular Filtration Rate 17 Protein Corrected Calcium 8.5 Total Creatine Kinase 170 Creatine Kinase MB 1.2 Troponin I 0.19 Test 02/11/17 06:05 02/11/17 07:21 02/11/17 07:23 Blood Gas Puncture Site C.LINE ART LINE Blood Gas Patient Temperature 98.6 98.6 Venous Blood pH 7.12 Venous Blood Partial Pressure CO2 75 Venous Blood Partial Pressure O2 55 Venous Blood HCO3 23 Venous Blood Oxygen Saturation 76 Venous Blood Oxygen Content 11.7 Venous Blood Base Excess -5.1 Oxygen Delivery Device VENTILATOR VENTILATOR Blood Gas Ventilator Setting AC/RR18/VT520/PEEP5 AC/18/600/PEEP12 Blood Gas Inspired Oxygen 100 80 Prothrombin Time 14.0 Prothromb Time International Ratio 1.3 Activated Partial Thromboplast Time 41.7 Blood Gas HCO3 22 Blood Gas Base Excess -4.4 Blood Gas Oxygen Saturation 88 Arterial Blood pH 7.21 Arterial Blood Partial Pressure CO2 58 Arterial Blood Partial Pressure O2 67 Arterial Blood Oxygen Content 12.8 Arterial Blood Carboxyhemoglobin 0.9 Arterial Blood Methemoglobin 0.7 Blood Gas Hemoglobin 10.4 Date/Time Source Procedure Growth Status 02/10/17 16:25 Blood Peripheral Aerobic Blood Culture - Preliminary Gram Positive Cocci Resulted 02/10/17 16:25 Anaerobic Blood Culture - Preliminary Gram Positive Cocci Resulted 02/01/17 09:55 Cerebral Spinal Fluid Lumbar Puncture Fungal Smear - Final NO FUNGAL ELEMENTS SEEN. Resulted 02/01/17 09:55 Cerebral Spinal Fluid Lumbar Puncture Fungal Culture - Preliminary NO GROWTH IN 1 WEEK Resulted 02/11/17 02:30 Sputum Endotracheal Gram Stain - Final Resulted 02/11/17 02:30 Sputum Endotracheal Sputum Culture Pending Resulted 02/11/17 09:10 Abscess Arm Acid Fast Stain Pending Received 02/11/17 09:10 Abscess Arm Mycobacterial Culture Pending Received Result Diagram: 02/11/17 0420 02/11/17 0420 Imaging RADIOLOGY STUDIES/FILMS REVIEWED Last Impressions Chest X-Ray 02/11/17 0000 Signed Impressions: Service Date/Time: Saturday, February 11, 2017 05:03 - CONCLUSION: Stable left lower lung consolidation and new patchy areas of right lower lung infiltrate. Candido Patton MD Upper Extremity Ultrasound 02/10/17 0000 Signed Impressions: Service Date/Time: Friday, February 10, 2017 18:46 - CONCLUSION: Occlusive thrombus in the cephalic and basilic veins. Benjamin Person MD Lung Scan- Nuclear Medicine 02/10/17 0000 Signed Impressions: Service Date/Time: Friday, February 10, 2017 22:17 - CONCLUSION: Low probability pulmonary embolism. Candido Patton MD Head CT 02/10/17 0000 Signed Impressions: Service Date/Time: Friday, February 10, 2017 23:51 - CONCLUSION: Negative noncontrast CT brain. Candido Patton MD Chest CT 02/10/17 0000 Signed Impressions: Service Date/Time: Friday, February 10, 2017 23:56 - CONCLUSION: Left lower lobe collapse with consolidation. Patchy infiltrates the medial right lower lung. Candido Patton MD Abdomen/Pelvis CT 02/10/17 0000 Signed Impressions: Service Date/Time: Friday, February 10, 2017 23:59 - CONCLUSION: 1. Nonobstructing 12 mm calcified stone lower pole right kidney. 2. Atrophic left kidney with significant cortical thinning. 3. Bilateral fat-containing inguinal hernias, large on the right, and moderate on the left. 4. Consolidative collapse of the left lower lobe. Candido Patton MD Abdomen X-Ray 02/10/17 0000 Signed Impressions: Service Date/Time: Friday, February 10, 2017 08:14 - CONCLUSION: No acute abdominal abnormality is identified. Angelo Allen MD Wrist X-Ray 02/06/17 0000 Signed Impressions: Service Date/Time: Monday, February 06, 2017 12:50 - CONCLUSION: Minimally displaced distal radius and ulnar fractures. Armando Dodd MD Lumbar Puncture Fluoroscopy 02/01/17 0000 Signed Impressions: Service Date/Time: January 09:35 - CONCLUSION: Uncomplicated fluoroscopically guided lumbar puncture. CSF was clear. Nabeel Peralta MD Head Magnetic Resonance Angiography 01/27/17 0000 Signed Impressions: Service Date/Time: Friday, January 27, 2017 10:33 - CONCLUSION: No intracranial vascular abnormality is identified. There is no aneurysm visualized. Angelo Allen MD IVC Filter Placement X-Ray 01/25/17 0000 Signed Impressions: Service Date/Time: January 10:29 - CONCLUSION: Uncomplicated inferior vena cava filter placement as above. Yung Fowler MD Thoracic Spine MRI 01/24/17 0000 Signed Impressions: Service Date/Time: Tuesday, January 24, 2017 22:29 - CONCLUSION: 1. Mild degenerative spondylosis most prominently at T11-L1 with slight effacement of the anterior thecal sac and left lateral recess. No significant neural foraminal stenosis. 2. No acute fracture. Juan Bhakta MD Renal Ultrasound 01/23/17 0000 Signed Impressions: Service Date/Time: Monday, January 23, 2017 08:53 - CONCLUSION: 1. Evidence of chronic parenchymal disease of both kidneys. No obstructive uropathy or other acute abnormality demonstrated. 2. Trace ascites, nonspecific. Angelo Garrido MD Lumbar Spine MRI 01/23/17 Signed Impressions: Service Date/Time: Monday, January 23, 2017 17:01 - CONCLUSION: 1. At L4-5 is a broad-based disc protrusion with severe central canal and lateral recess stenosis and flattening of the exiting right L4 nerve root. 2. L5-S1 there is a disc protrusion and moderate stenosis with flattening of the exiting L5 nerve roots bilaterally. 3. At L3-4 there is a moderate to severe central stenosis and lateral recess stenosis with mild foraminal stenosis. 4. No acute fracture or spondylolisthesis. Trace Holloway MD Lower Extremity Ultrasound 01/23/17 Signed Impressions: Service Date/Time: Monday, January 23, 2017 09:53 - CONCLUSION: Bilateral focal lower extremity DVT involving the posterior tibial veins. Angelo Garrido MD Cervical Spine MRI 01/23/17 Signed Impressions: Service Date/Time: Monday, January 23, 2017 17:01 - CONCLUSION: 1. Multilevel cervical spine degenerative changes as above. 2. Mild degrees of spinal stenosis at C3/C4-C6/C7. No cord compression or cord signal abnormality. 3. Age indeterminate left paracentral/foraminal disc protrusion at C6/C7. 4. Multilevel foraminal stenosis, most severe on the left at C6/C7. Please see individual levels above. 5. No fracture or subluxation of the cervical spine. Angelo Garrido MD Brain MRI 01/23/17 Signed Impressions: Service Date/Time: Monday, January 23, 2017 17:01 - CONCLUSION: 1. No acute stroke or other acute intracranial abnormality demonstrated. 2. Moderate severity chronic white matter changes, nonspecific but most likely related to chronic small vessel disease. 3. Few scattered tiny lacunar infarcts of the brainstem. 4. Given the findings are not entirely specific, clinical evaluation for possible multiple sclerosis recommended. Angelo Garrido MD Knee X-Ray [id number]/22/[id number] Signed Impressions: Service Date/Time: Sunday, January 22, 2017 21:17 - CONCLUSION: 1. Evidence of moderate to large joint effusion. 2. No acute fracture or malalignment. 3. Mild 3 compartment osteoarthritic change. Benjamin Person MD Hip and Pelvis X-Ray [id number]/22/[id number] Signed Impressions: Service Date/Time: Sunday, January 22, 2017 21:10 - CONCLUSION: 1. Mild to moderate degenerative change of both hips with no acute fracture or malalignment. There is flattening and remodeling of the right humeral head. Benjamin Person MD Assessment and Plan Assessment and Plan IMPRESSION GPC sepsis, with shock, likely Staph, due to suppurative thrombophlebitis LUE , S/P I and D and excision of portion of cephalic vein Respiratory failure, CXR clear Recent Rx 7 days high dose solumedrol for transverse myelitis Wu LE DVT has IVC filter placed 01/25 - ?hypercoagulable state Chronic kidney disease Known DM, HTN Gouty tophi both hands and feet RECOMMENDATION Repeat 2 BC Will keep all Abx for now and deescalate tomorrow - Vanco,, cefepime, Micafungin Will stop Flagyl and Zithromax Echo Follow C/S and adjust Abx Check Vanco level in AM Monitor progress I will follow along with you Thank you for this consultation Discussed Condition With D/W Dr Sunita Stephens ([facility]) Irene Edwards MD Feb 11, 2017 10:43
[2017-02-11] MEDS: RESP: ACETYLCYSTEINE 20% 30 ML NEB NEB SCH ×3 (11:06→20:24)
--- NOTE | 2017-02-11 11:40 | MP ---
cc: SALO BATES DATE OF SURGERY: 02/11/2017 PREOPERATIVE DIAGNOSIS: Exudative/port of thrombophlebitis left upper extremity with MRSA noted in septic shock, on multiple vasopressors. POSTOPERATIVE DIAGNOSIS Exudative/port of thrombophlebitis left upper extremity with MRSA noted in septic shock, on multiple vasopressors. PROCEDURE: Left upper extremity incision and debridement with excision of septic cephalic vein. BRIEF HISTORY This patient is a 62-year-old male who was intubated over night for cardiovascular collapse and suspected septic thrombophlebitis. The patient was on two pressors and labile. Active purulence was expressed from the left upper extremity just above the antecubital fossa with massive induration and warmth. With this patient's history of acute decompensation there was suspicion this may be the source of his sepsis. He was too unstable being on multiple pressors to be taken to the operating room, so we attempted to contact the son who was unavailable and then Dr. Stephens and myself agreed that emergent incision and debridement with excision of the cephalic vein would be appropriate. DESCRIPTION OF PROCEDURE: The patient's left upper extremity was prepped and draped in sterile fashion after performing a time-out. I did use approximately 10 cc of 1% lidocaine and made an incision over the indurated area. I made a linear incision that was about 3-4 cm just above the antecubital fossa medially and vertically. I used a 15 blade scalpel to do this and once I did open this area there was pus that was expressed and the cephalic vein was identified. The vein was transected and removed. The area was irrigated with approximately 1 liter of warm normal saline. Before we did this as soon as we opened the incision, we did place culture swab in the area that was affected and sent for culture and sensitivity. After the area was irrigated and hemostasis was noted, I packed with one inch povidone-iodine gauze and used surgical abdominal dressings, 4x4s and Kerlix dressing to pack the left arm. It should be noted that there was a strong signal in the left radial distribution after the procedure and note that the perfusion was not affected. Salo Bates DO /CHEPE /9:16 AM /10:25 AM
[2017-02-11] MEDS: VASOPRESSIN INJ 40 UNITS in DEXTROSE 5% IN WATER 100ML INJ 98 ML IV SCH ×2 (12:27)
[2017-02-11 12:59] LABS: BACTERIA, URINE FEW /hpf; BLOOD, URINE MOD (NEG); COMMENT (UR) CATH-CULTURE IND; CULTURE IF INDICATED CATH CULTURE IND; GLUCOSE,URINE 150 mg/dL (NEG); KETONE, URINE NEG (NEG); MUCUS URINE FEW /lpf (OCC); NITRITE,URINE NEG (NEG); PH, URINE 5.5 (5.0-8.5); SQUAMOUS EPITHELIAL CELL URINE 3 /hpf (0-5); URINE COLOR YELLOW (YELLW/STRAW)
--- NOTE | 2017-02-11 13:35 | HHI.NPPN ---
Subjective History of Present Illness 61-year-old with history of urinary stone Additional Remarks Patient is intubated and sedated, started on pressors. Review of Systems General Constitutional: Fatigue Objective Data Data Vital Signs Date Time Temp Pulse Resp B/P (MAP) Pulse Ox O2 Delivery O2 Flow Rate FiO2 02/11/17 12:27 82 96/63 02/11/17 12:00 98.5 83 18 103/65 (78) 97 02/11/17 12:00 83 103/65 02/11/17 11:32 96 55 02/11/17 10:15 99.6 02/11/17 10:15 95 104/65 02/11/17 09:55 96 106/67 02/11/17 09:33 96 109/69 02/11/17 08:02 95 80 02/11/17 08:00 98.5 02/11/17 08:00 98.5 97 18 126/80 (95) 94 02/11/17 08:00 97 02/11/17 05:36 97 100 02/11/17 05:30 100 100 02/11/17 04:36 99 100 02/11/17 04:00 100 02/11/17 04:00 96.9 98 15 112/62 (79) 99 02/11/17 02:10 100 100 02/11/17 02:10 100 100 02/11/17 01:51 100 100 02/11/17 00:30 100 100 02/11/17 00:00 101.0 106 22 120/56 (77) 94 02/11/17 00:00 100 02/10/17 22:45 96 100 02/10/17 21:30 20 02/10/17 21:15 92 15.00 100 02/10/17 21:00 106.0 02/10/17 21:00 105.4 124 25 97/55 (69) 92 02/10/17 21:00 125 02/10/17 20:53 93 100 02/10/17 20:21 120 120/80 02/10/17 20:15 106.0 122 24 66/33 (44) 64 02/10/17 20:09 115 02/10/17 19:42 84 Partial Rebreather 15.00 100 02/10/17 19:42 84 15.00 100 02/10/17 16:00 97.5 119 20 96/58 (86) 00 -: 02/11/17 0420 02/11/17 0420 Microbiology 02/10/17 Aerobic Blood Culture - Preliminary, Resulted Gram Positive Cocci 02/10/17 Anaerobic Blood Culture - Preliminary, Resulted Gram Positive Cocci 02/10/17 Aerobic Blood Culture - Preliminary, Resulted Staphylococcus Aureus 02/10/17 Anaerobic Blood Culture - Preliminary, Resulted Gram Positive Cocci 02/11/17 Gram Stain - Final, Resulted 02/11/17 Sputum Culture, Resulted Pending 02/11/17 Urine Culture, Received Pending 02/11/17 Acid Fast Stain, Received Pending 02/11/17 Mycobacterial Culture, Received Pending 02/11/17 Gram Stain, Received Pending 02/11/17 Wound Culture, Received Pending 02/11/17 Gram Stain - Final, Resulted 02/11/17 Wound Culture, Resulted Pending Physical Exam General Appearance Remarks Intubated and sedated. Neck Neck Exam: Neck Supple Pulmonary Resp Exam: Clear Bilaterally, Breath Sounds Equal Cardiology CV Exam: Regular, Normal Sinus Rhythm Gastrointestinal/Abdomen GI Exam: Soft, Non-Tender, Bowel Sounds Present Extremeties Extremities Exam: Trace Edema Neurologic Neuro Exam: Sedated Assessment/Plan Problem List: (1) Acute renal failure ICD Codes: N17.9 - Acute kidney failure, unspecified Status: Acute Plan: Patient develop Hypotension, respiratory failure and increase WBC. Has aspiration pneumonia. Now the Creatinine increasing. Given IVF Bolus, K is 5.2, Will change IVF to NS from RL as K is elevated. Continue IVF and antibiotics. Follow the urine out put and BMP. Dr. Liao will follow from AM. (2) CKD (chronic kidney disease) stage 3, GFR 30-59 ml/min ICD Codes: N18.3 - Chronic kidney disease, stage 3 (moderate) Status: Chronic Plan: Ultrasound revealed chronic kidney disease there is no kidney stones (3) Diabetes ICD Codes: E11.9 - Type 2 diabetes mellitus without complications Plan: Continue to monitor (4) Distal end of ulna fracture, closed ICD Codes: S52.609A - Unspecified fracture of lower end of unspecified ulna, initial encounter for closed fracture Status: Acute Plan: Orthopedic is following Problem Qualifiers (1) Acute renal failure: Qualified Codes: N17.9 - Acute kidney failure, unspecified Aicha Leonard MD Feb 11, 2017 13:35
[2017-02-11] MEDS: SODIUM CHLOR 0.9% 1000 ML INJ 1,000 ML IV SCH ×2 (13:48→20:58)
[2017-02-11 14:21] LABS: APTT (PATIENT) 61.9 SEC (24.3-30.1)
[2017-02-11] MEDS ORDERED: MISC INFORMATION OTHER ONE (15:00)
[2017-02-11 15:04] LABS: BLOOD GAS BASE EXCESS -2.7 mmol/L (-2-2); BLOOD GAS CARBOXYHEMOGLOBIN 1.1 % (0-4); BLOOD GAS HCO3 22 mmol/L (22-26); BLOOD GAS METHEMOGLOBIN 0.6 % (0-2); BLOOD GAS O2 HGB SATURATION 93 % (90-100); BLOOD GAS OXYGEN CONTENT 12.5 Vol % (12.0-20.0); BLOOD GAS PCO2 42 mmHg (38-42); BLOOD GAS PO2 73 mmHg (61-120); BLOOD GAS TOTAL HGB 9.5 G/DL (12.0-16.0); CRITICAL VALUE NO; OXYGEN DEVICE VENTILATOR; TEMP CORR TO 98.6
--- NOTE | 2017-02-11 15:04 | ECHRPT ---
Indication: sob CONCLUSIONS The left ventricular systolic function is severely reduced with an estimated ejection fraction in th e range of 20-25% (estimated, endocardium not well seen.) Normal left ventricular size. Mild concentric left ventricular hypertrophy. [id number] mitral valve regurgitation. No aortic valve regurgitation. No aortic valve stenosis. There is mild tricuspid valve regurgitation. The estimated pulmonary arterial pressure is 26.6 mmHg. BP: / HR: Rhythm: MEASUREMENTS (Male / Female) Normal Values Technical Quality:Very technically difficult study 2D ECHO LV Diastolic Diameter PLAX 5.6 cm 4.2 - 5.9 / 3.9 - 5.3 cm LV Systolic Diameter PLAX 5.1 cm IVS Diastolic Thickness 1.2 cm 0.6 - 1.0 / 0.6 - 0.9 cm LVPW Diastolic Thickness 1.1 cm 0.6 - 1.0 / 0.6 - 0.9 cm LV Relative Wall Thickness 0.4 RV Internal Dim ED PLAX 4.1 cm M-MODE Aortic Root Diameter MM 3.0 cm LA Systolic Diameter MM 3.1 cm LA Ao Ratio MM 1.0 AV Cusp Separation MM 1.9 cm DOPPLER Mitral E Point Velocity 59.2 cm/s Mitral A Point Velocity 73.5 cm/s Mitral E to A Ratio 0.8 LV E' Lateral Velocity 5.4 cm/s Mitral E to LV E' Lateral Ratio 11.0 LV E' Septal Velocity 3.9 cm/s Mitral E to LV E' Septal Ratio 15.2 TR Peak Velocity 204.0 cm/s TR Peak Gradient 16.6 mmHg Right Atrial Pressure 10.0 mmHg Pulmonary Artery Systolic Pressu 26.6 mmHg Right Ventricular Systolic Press 26.6 mmHg FINDINGS LEFT VENTRICLE The left ventricular systolic function is severely reduced with an estimated ejection fraction in th e range of 20-25%. Normal left ventricular size. Mild concentric left ventricular hypertrophy. RIGHT VENTRICLE Normal right ventricular size and systolic function. LEFT ATRIUM The left atrial size is normal. RIGHT ATRIUM The right atrial size is normal. ATRIAL SEPTUM Normal atrial septal thickness without atrial level shunting by limited color doppler interrogation. AORTA The aortic root and proximal ascending aorta are normal in size on limited imaging. MITRAL VALVE Structurally normal mitral valve. [id number] mitral valve regurgitation. AORTIC VALVE Trileaflet aortic valve. No aortic valve regurgitation. No aortic valve stenosis. TRICUSPID VALVE Structurally normal tricuspid valve. There is mild tricuspid valve regurgitation. The estimated pulmonary arterial pressure is 26.6 mmHg. PULMONARY VALVE No pulmonary valve regurgitation or stenosis. VESSELS The inferior vena cava is normal in size. PERICARDIUM No pericardial effusion. Abraham Fong MD (Electronically Signed) Final Date:11 February 2017 15:03
[2017-02-11 15:05] LABS: DRAW SITE ART LINE; FIO2 50 %; STAT YES
[2017-02-11] MEDS: INSULIN REGULAR (IV INFUSION) 100 UNITS in SODIUM CHLORIDE 0.9% INJ 99 ML IV SCH (15:28)
[2017-02-11] MEDS: RESP: ALBUTEROL 2.5 MG/IPRATROPIUM 0.5 MG NEB (SCH) NEB ×2 (16:08→20:24)
[2017-02-11] MEDS ORDERED: SODIUM CHLOR 0.9% 1000 ML INJ 1,000 ML IV ONE (16:45)
[2017-02-11 20:50] LABS: APTT (PATIENT) 57.1 SEC (24.3-30.1)
[2017-02-11] MEDS: FAMOTIDINE 20 MG/2 ML VIAL IV PUSH SCH (20:57)
[2017-02-11] MEDS: MICAFUNGIN INJ 150 MG in SODIUM CHLORIDE 0.9% INJ 100 ML IV SCH (20:58)
[2017-02-11] MEDS: ATORVASTATIN 10 MG TAB PO SCH (20:58)
[2017-02-12] VITALS (14 sets, daily range): BP systolic 110–137; BP diastolic 58–78; PULSE 60–92; RESP 18; TEMP 97.3–98.5; O2SAT 96–100
[2017-02-12] MEDS: CEFEPIME INJ 2,000 MG in SODIUM CHLORIDE 0.9% INJ 100 ML IV SCH (00:18)
[2017-02-12] MEDS: RESP: ALBUTEROL 2.5 MG/IPRATROPIUM 0.5 MG NEB (SCH) NEB ×4 (03:50→19:15)
[2017-02-12] MEDS: RESP: ACETYLCYSTEINE 20% 30 ML NEB NEB SCH (03:50)
--- NOTE | 2017-02-12 04:44 | RADRPT ---
EXAM DATE/TIME: 02/12/2017 03:32 [facility] COMPARISON: CHEST SINGLE AP, February 11, 2017, 5:03. INDICATIONS : Short of breath. MEDICAL HISTORY : Cardiovascular disease. Hypertension Diabetes mellitus type II. DVT SURGICAL HISTORY : None. ENCOUNTER: Subsequent ACUITY: 3 weeks PAIN SCORE: 0/10 LOCATION: Bilateral chest FINDINGS: A single view of the chest demonstrates basilar airspace disease and small effusions. Left central li ne in superior vena cava. Endotracheal tube in good position. Nasogastric tube enters stomach. CONCLUSION: 1. Support apparatus in good position. Relatively stable basilar airspace disease and pleural effusio ns. Trace Holloway MD on February 12, 2017 at 4:41 Board Certified Radiologist. This report was verified electronically.
[2017-02-12 05:02] LABS: AUTOMATED NEUTROPHIL # 26.5 TH/MM3 (1.8-7.7); BASOPHIL % 0.2 % (0.0-2.0); LYMPHOCYTE # 0.6 TH/MM3 (1.0-4.8); MEAN CELL VOLUME 82.2 FL (80.0-100.0); MEAN CORPUSCULAR HEMOGLOBIN 26.7 PG (27.0-34.0); MEAN CORPUSCULAR HGB CONC 32.5 % (32.0-36.0); MONO % 3.2 % (0.0-8.0); NEUT % 94.6 % (16.0-70.0); PLATELET COUNT 145 TH/MM3 (150-450); RED BLOOD COUNT 3.41 MIL/MM3 (4.50-5.90)
[2017-02-12 05:08] LABS: HEMO FLAGS AUTO DIFF
[2017-02-12 05:10] LABS: APTT (PATIENT) 59.2 SEC (24.3-30.1)
[2017-02-12] MEDS: HYDROCORTISONE SOD SUCCINATE 100 MG VIAL IV PUSH SCH ×3 (05:39→22:21)
[2017-02-12] MEDS: NOREPINEPHRINE-DEXTROSE DRIP 250 ML IV PRN (05:39)
[2017-02-12] MEDS: VASOPRESSIN INJ 40 UNITS in DEXTROSE 5% IN WATER 100ML INJ 98 ML IV SCH ×2 (05:40)
[2017-02-12 05:56] LABS: CALCIUM-PROTEIN CORRECTED 8.3 MG/DL (8.5-10.1); MAGNESIUM 1.5 MG/DL (1.5-2.5); POTASSIUM 4.4 MEQ/L (3.5-5.1); TOTAL BILIRUBIN ADULT 0.4 MG/DL (0.2-1.0)
[2017-02-12 07:51] LABS: BANDS 15 % (0-6); NEUTROPHIL # MANUAL DIFF 27.2 TH/MM3 (1.8-7.7); PLATELET ESTIMATE SMEAR LOW (NORMAL); PLATELET MORPHOLOGY NORMAL (NORMAL); POLYS (SEG NEUTROPHILS) 82 % (16-70); SCAN/DIFF FINAL DIFF MANUAL; WBC DIFF SAMPLE 100
[2017-02-12] MEDS: DOCUSATE SODIUM 50 MG/SENNA 8.6 MG TAB PO SCH ×2 (08:35→20:42)
--- NOTE | 2017-02-12 10:11 | HHI.CCPN ---
Subjective Remarks/Hospital Course Date of admission: 01/22 Date of critical care medicine consult 02/10 due to acute hypoxemic respiratory failure requiring emergent intubation 62-year-old male with a past medical history of hypertension, hyperlipidemia, diabetes mellitus, gout, uric acid kidney stones, kidney disease of unknown stage who originally presented to [facility] emergency department on 01/22 after a fall in which he sustained a right distal ulna fracture. He had been experiencing a gradual primarily lower extremity weakness as well as upper extremity weakness that was progressive. Neurology consult was obtained. MRI revealed no acute stroke. He had multifocal white matter changes. Tiny lacunar infarcts of the brainstem. Lumbar MRI report states L4-L5 disc protrusion with cetnral canal stenosis. Dr. Blackwell evaluated and states no cord compression on MRI C/T spine and recommended nonoperative management. Symptoms were felt to be consistent with transverse myelitis and he underwent Solumedrol 250 mg IV q6 hours 01/27-02/02. He also was found to have occlusive thrombus in the bilateral posterior tibial veins. Heparin was being avoided because he had traumatic lumbar puncture on 01/26 and 02/01. IVC filter was placed 01/25. He was undergoing physical therapy, reportedly making some improvements with plan to eventually discharged home with his son (max assist standing, and bed to chair per PT note). Apparently he had some vomiting the evening of 02/09 and additional vomiting on 02/10. He had a fever 102.8 on 02/09. Last recorded bowel movement was 02/03. Tonight he had acute onset of severe hypoxemia and respiratory distress. [facility] called and he was brought emergently to [facility] where his sats were 64% on 100% nonrebreather with mean arterial pressure 44. He was emergently intubated, CVL and art line placed. He is in septic shock. SUBJ: 02/11: Patient remains intubated sedated, critically ill. FiO2 reduced to 80% after increasing PEEP to 12. In severe septic shock Levophed at 16 mcg/m, vasopressin at 0.04 international units. D/W vascular surgery Dr. Enciso. He performed bedside Left upper extremity incision and debridement and excision of septic cephalic vein. 02/12: Remains intubated sedated profoundly septic, in shock on vasopressin and 7 mcg/min Levophed. FiO2 has improved to 45%, WBC count remains elevated with 20 ,000 white count significant left shift. Slight improvement in creatinine 2.9 urine output 750 ml 24 hours. 2-D echo shows LV ejection fraction 20-25%, no vegetation reported. Blood cultures 4 staph aureus. Wound culture pending Objective Vital Signs Date Time Temp Pulse Resp B/P (MAP) Pulse Ox O2 Delivery O2 Flow Rate FiO2 02/12/17 08:35 99 35 02/12/17 06:00 60 118/58 (78) 02/12/17 04:00 97.5 18 02/10/17 21:15 15.00 02/10/17 19:42 Partial Rebreather Intake and Output 02/12/17 02/12/17 02/13/17 08:00 16:00 00:00 Intake Total 2050 ml Output Total 325 ml Balance 1725 ml Result Diagram: 02/12/17 0440 02/12/17 0440 Other Results Microbiology Date/Time Source Procedure Growth Status 02/10/17 16:25 Blood Peripheral Aerobic Blood Culture - Final Staphylococcus Aureus Complete 02/10/17 16:25 Anaerobic Blood Culture - Final Staphylococcus Aureus Complete Laboratory Tests Test 02/11/17 14:56 Blood Gas Puncture Site ART LINE Blood Gas Patient Temperature 98.6 Blood Gas HCO3 22 mmol/L (22-26) Blood Gas Base Excess -2.7 mmol/L (-2-2) Blood Gas Oxygen Saturation 93 % (90-100) Arterial Blood pH 7.35 (7.380-7.420) Arterial Blood Partial Pressure CO2 42 mmHg (38-42) Arterial Blood Partial Pressure O2 73 mmHg (61-120) Arterial Blood Oxygen Content 12.5 Vol % (12.0-20.0) Arterial Blood Carboxyhemoglobin 1.1 % (0-4) Arterial Blood Methemoglobin 0.6 % (0-2) Blood Gas Hemoglobin 9.5 G/DL (12.0-16.0) Oxygen Delivery Device VENTILATOR Blood Gas Ventilator Setting AC,18,600,PEEP10 Blood Gas Inspired Oxygen 50 % Objective Remarks GENERAL: Critically ill-appearing male who is intubated heavily sedated on 2 pressors SKIN: Skin is very dry with poor skin turgor. 2 cm stage II sacral decubitus ulcer, to the right of that is a 1 cm stage II sacral decubitus ulcer. There is sloughing of the skin throughout the buttocks. Linda intertrigo in the crease of the left scrotal region and in the right inguinal crease. Left upper arm status post I&D and partial removal of infected left cephalic vein HEAD: Atraumatic. Normocephalic. EYES: Pupils equal and round, 2 mm and reactive bilaterally. No scleral icterus. ENT: No nasal bleeding or discharge. Mucous membranes dry. No meningismus NECK: Trachea midline. No JVD. CARDIOVASCULAR: Tachycardic, sinus tachycardia on the monitor in the mid 100s. No murmurs rubs or gallops. Currently on high-dose Levophed and vasopressin RESPIRATORY: Intubated sedated hypoxemic. Diminished breath sounds in the left base. Bilateral rhonchi. No wheezes. GASTROINTESTINAL: Abdomen soft, non-tender, nondistended. Bowel sounds are hypoactive. No hepatosplenomegaly appreciated. MUSCULOSKELETAL: Extremities without clubbing, cyanosis. There is no edema. The right wrist is in a Velcro splint. There are deformities of bilateral elbow , fingers, knees, toes c/w gout tophi. NEUROLOGICAL: Intubated sedated. On sedation hold, patient grimaces to pain, withdraws all extremities weakly Procedures IVC filter placement 01/25/2017 LP 01/26/2017 A/P Problem List: (1) Septic shock ICD Code: A41.9 - Sepsis, unspecified organism; R65.21 - Severe sepsis with septic shock Status: Acute (2) Acute respiratory failure ICD Code: J96.00 - Acute respiratory failure, unspecified whether with hypoxia or hypercapnia Status: Acute (3) Thrombophlebitis arm ICD Code: I80.8 - Phlebitis and thrombophlebitis of other sites (4) Aspiration pneumonia ICD Code: J69.0 - Pneumonitis due to inhalation of food and vomit Status: Acute (5) Atelectasis of left lung ICD Code: J98.11 - Atelectasis Status: Acute (6) Quadriparesis ICD Code: G82.50 - Quadriplegia, unspecified Status: Acute (7) DVT (deep venous thrombosis) ICD Code: I82.409 - Acute embolism and thrombosis of unspecified deep veins of unspecified lower extremity (8) Altered mental status ICD Code: R41.82 - Altered mental status, unspecified Status: Acute (9) CKD (chronic kidney disease) stage 3, GFR 30-59 ml/min ICD Code: N18.3 - Chronic kidney disease, stage 3 (moderate) Status: Chronic (10) Acute renal failure ICD Code: N17.9 - Acute kidney failure, unspecified Status: Acute (11) Diabetes mellitus ICD Code: E11.9 - Type 2 diabetes mellitus without complications Status: Chronic (12) Distal end of ulna fracture, closed ICD Code: S52.609A - Unspecified fracture of lower end of unspecified ulna, initial encounter for closed fracture Status: Acute (13) Gout ICD Code: M10.9 - Gout, unspecified Status: Chronic Assessment and Plan Assessment and Plan NEURO: Acute encephalopathy Recurrent falls Quadriparesis secondary to suspected transverse myelitis Suspected transverse myelitis. Received Solu-Medrol 250 mg IV every 6 hours 01/27- 02/02, started on stress dose steroids yesterday (hydrocortisone 100 mg IV every 8 hours) Had LP 01/26 and 02/01. CSF culture negative 01/26, 02/01 Oligoclonal bands negative. CSF/serum IgG index is not elevated. VDRL nonreactive. Cryptococcal antigen negative. Brain MRI 01/23 no acute stroke. Few scattered lacunar infarcts of the brainstem. Moderate chronic white matter changes. MRI cervical/thoracic spine- mild spinal stenosis 3C3/C4 to C6/C7. No cord compression. RPR negative Neurology has been following, Dr. Crenshaw. Repeat CT brain 02/10 - negative RESP: Acute hypoxemic respiratory failure Left lower lobe collapse Probable healthcare associated pneumonia Intubated emergently 02/10. ACV TV 600 PEEP 8 FIO2 45%. Diagnostic and therapeutic bronchoscopy performed for left lower lobe. White mucous plugs removed and BAL sent. VQ scan 02/[address] low [address] PE CT chest02/10 - left lower lobe collapse and consolidation. Right lower lobe infiltrate. Endotracheal tube did get dislodged and was advanced by Dr. Hogan under direct laryngoscopy around 5:30 02/11. DuoNeb every 6 hours scheduled and when necessary Follow-up on cultures CV: Septic shock Hyperlipidemia History of hypertension Patient clinically appears dry. Continue aggressive fluid resuscitation. Monitor intake and output hourly as indicated or perfusion. Serial lactic acid monitoring. Levophed, vasopressin gtt to maintain mean arterial pressure greater than 65. Hydrocortisone 100 mg IV every 8 hours for relative adrenal insufficiency. Of note patient was also on high-dose steroids about 10 days ago. Chele Trac for hemodynamic monitoring Hold metoprolol 25 every 8 hours. Norvasc 5 mg daily has been on hold since On atorvastatin 10 mg daily at bedtime GI: CT abdomen and pelvis 02/10atrophic left kidney. Bilateral inguinal hernias fat- containing. Nonobstructing 12 mm right kidney stone FEN/RENAL: Acute kidney injury Chronic kidney disease stage 3-4 History of uric acid kidney stones with prior stent Continue Sloan. Monitor intake and output q1hr. Monitor electrolytes. RIOS/SPEP negative. Nephrology was following. Patient is oliguric and may require CRRT ID: Septic shock Abscess and Suppurative thrombophlebitis left upper extremity Staph aureus bacteremia Acute aspiration pneumonia Current ABX per ID Vanco, cefepime, Micafungin Source of sepsis most likely septic thrombophlebitis, status post I&D and excision of infected cephalic vein by Dr. Enciso Heparinize now for DVT and septic thrombophlebitis. ID consulted [facility] HEME: DVT, bilateral posterior tibial vein IVC filter Septic thrombophlebitis with occlusive thrombus mid cephalic and basilic vein Ultrasound 01/23/17 - Bilateral lower extremity with occlusive posterior tibial vein DVTs. Heparin was initially started for DVT but was placed on hold due to LP with suspected traumatic tap. Restarted IV Heparin 02/11/17 IVC filter was placed 01/25/17. He has not been on a DVT prophylaxis. Last LP was 02/01. Discussed with Dr. Crenshaw who agrees appropriate to anticoagulate at this point. Ultrasound LUE 02/10 occlusive thrombus mid cephalic vein, basilic vein. ENDO: Diabetes mellitus, with hyperglycemia Continue Insulin gtt TSH was normal 01/23 MSK: Right distal ulna fracture. Dr. Nathan with orthopedics has evaluated and recommended nonoperative management. He has a right wrist splint in place. Gout PROPH: Famotidine for stress ulcer prophylaxis. Has IVC filter. Heparin drip initiated due to DVT/septic thrombophlebitis. ACCESS: Left IJ central venous line placed 02/10 #2. Left femoral art line placed 02/10 #2 CCT 45 MIN Problem Qualifiers (1) Aspiration pneumonia: (2) DVT (deep venous thrombosis): Qualified Codes: I82.443 - Acute embolism and thrombosis of tibial vein, bilateral (3) Acute renal failure: Qualified Codes: N17.9 - Acute kidney failure, unspecified (4) Diabetes mellitus: (5) Gout: Antonietta Stephens MD Feb 12, 2017 10:11
[2017-02-12] MEDS: HEPARIN-D5W 25,000 U/250 ML 250 ML IV PRN (11:44)
[2017-02-12] MEDS ORDERED: VANCOMYCIN INJ 1,500 MG in SODIUM CHLORID 0.9% 500 ML INJ 500 ML IV ONE (12:00)
--- NOTE | 2017-02-12 13:11 | HHI.IDPN ---
Subjective Subjective Remarks Patient is a 62-year-old male, admitted to the hospital for evaluation of pain in his right wrist. He gave a history of falling about a week ago and apparently had immediate pain in the right wrist. He did not seek any medical attention initially because reportedly he was very busy. He eventually presented, and he was found to have a distal ulnar fracture on plain films. He also had some redness and swelling. Orthopedics saw the patient, and was being treated conservatively with the splint. During this hospitalization also he started complaining of generalized weakness but more so in his lower extremity than his upper extremity. He had swelling in both lower extremity which revealed evidence of DVT in the posterior tibial veins. Neurology had seen the patient and he underwent lumbar puncture which apparently was traumatic. Patient was therefore not given anticoagulation because of the traumatic LP, and he underwent placement of an IVC filter on January 25. Patient had another lumbar puncture on February 01. He was felt to have transverse myelitis, and he was given high-dose IV Solu-Medrol from January 27 to February 02. There was apparently some improvement in his weakness. The imaging studies done for his weakness showed some spinal stenosis, and neurosurgery was consult that and recommended that there was no surgical intervention to be done. Patient has been stabilizing, but last night apparently deteriorated, and he ended up getting intubated, and had significant hypotension requiring pressors. There was also an ultrasound done of his left upper extremity which showed DVT, and there was evidence of superior 2 thrombophlebitis. Vascular surgery was consult to it and he had IND on his left upper extremity. Patient has had some fevers since yesterday. 2 blood cultures were done yesterday and they're now reported as growing gram-positive cocci in [place] in clusters. He is currently sedated and intubated. He is on Levophed and vasopressin. A central line was placed as well as a femoral a line. He apparently had an IV in his left upper extremity and that was removed yesterday. Patient also has history of chronic kidney disease, and nephrology evaluated the patient. He was just being monitored for his renal insufficiency. Infectious disease consultation has been requested to evaluate the patient. Notes reviewed Temps better Off levophed On vasopressin Off sedation, awake but not following commands Echo no vegetation BC x 2 with Staph aureus C/S sputum Staph aureus LUE C/S pending WBC up to 28 Creatinine better UO less than 1L Antibiotics Vancomcyin Cefepime Micafungin Lines [facility]J TLC L fem A-line Past Medical History Gouty arthritis Chronic kidney disease Hx multiple kidney stones Hypertension GERD Diabetes Past Surgical History Rhinoplasty Kidney stone removal with cystoscopy and ureteral stent Allergies: Coded Allergies: levofloxacin (Verified Allergy, Severe, 01/22/17) Objective . Vital Signs Date Time Temp Pulse Resp B/P (MAP) Pulse Ox O2 Delivery O2 Flow Rate FiO2 02/12/17 11:39 96 35 02/12/17 08:35 99 35 02/12/17 06:00 60 118/58 (78) 02/12/17 05:40 66 02/12/17 05:39 66 02/12/17 05:33 97 45 02/12/17 04:00 35 02/12/17 04:00 97.5 68 18 120/64 (82) 98 02/12/17 03:51 99 45 02/12/17 00:00 98.5 70 18 114/64 (81) 97 02/12/17 00:00 35 02/11/17 23:55 97 45 02/11/17 20:24 97 45 02/11/17 20:00 98.5 76 18 96/58 (71) 98 02/11/17 20:00 35 02/11/17 20:00 76 02/11/17 18:34 75 95/59 02/11/17 16:09 95 50 02/11/17 16:00 96.8 70 18 98/60 (73) 95 02/11/17 16:00 50 02/11/17 16:00 70 . Laboratory Tests Test 02/10/17 21:11 02/11/17 04:20 02/12/17 04:40 White Blood Count 25.9 TH/MM3 28.8 TH/MM3 28.0 TH/MM3 Red Blood Count 4.23 MIL/MM3 3.92 MIL/MM3 3.41 MIL/MM3 Hemoglobin 11.0 GM/DL 10.5 GM/DL 9.1 GM/DL Hematocrit 35.5 % 33.4 % 28.0 % Mean Corpuscular Volume 84.0 FL 85.1 FL 82.2 FL Mean Corpuscular Hemoglobin 26.1 PG 26.7 PG 26.7 PG Mean Corpuscular Hemoglobin Concent 31.1 % 31.4 % 32.5 % Red Cell Distribution Width 18.7 % 18.3 % 18.0 % Platelet Count 330 TH/MM3 231 TH/MM3 145 TH/MM3 Mean Platelet Volume 9.2 FL 9.1 FL 9.0 FL Neutrophils (%) (Auto) 85.9 % 95.9 % 94.6 % Lymphocytes (%) (Auto) 5.9 % 1.3 % 2.0 % Monocytes (%) (Auto) 7.2 % 2.2 % 3.2 % Eosinophils (%) (Auto) 0.2 % 0.1 % 0.0 % Basophils (%) (Auto) 0.8 % 0.5 % 0.2 % Neutrophils # (Auto) 22.2 TH/MM3 27.6 TH/MM3 26.5 TH/MM3 Lymphocytes # (Auto) 1.5 TH/MM3 0.4 TH/MM3 0.6 TH/MM3 Monocytes # (Auto) 1.9 TH/MM3 0.6 TH/MM3 0.9 TH/MM3 Eosinophils # (Auto) 0.1 TH/MM3 0.0 TH/MM3 0.0 TH/MM3 Basophils # (Auto) 0.2 TH/MM3 0.1 TH/MM3 0.0 TH/MM3 CBC Comment DIFF FINAL DIFF FINAL AUTO DIFF Differential Comment FINAL DIFF MANUAL Differential Total Cells Counted 100 Neutrophils % (Manual) 82 % Band Neutrophils % 15 % Lymphocytes % 2 % Monocytes % 1 % Neutrophils # (Manual) 27.2 TH/MM3 Platelet Estimate LOW Platelet Morphology Comment NORMAL Laboratory Tests Test 02/10/17 21:11 02/11/17 00:40 02/11/17 04:20 02/12/17 04:40 Lactic Acid Level 2.4 mmol/L 1.4 mmol/L Phosphorus Level 4.9 MG/DL Magnesium Level 1.7 MG/DL 1.5 MG/DL Total Bilirubin 0.7 MG/DL 0.5 MG/DL 0.4 MG/DL Direct Bilirubin 0.3 MG/DL Indirect Bilirubin 0.4 MG/DL Aspartate Amino Transf (AST/SGOT) 22 U/L 28 U/L 25 U/L Alanine Aminotransferase (ALT/SGPT) 19 U/L 18 U/L 19 U/L Alkaline Phosphatase 107 U/L 91 U/L 87 U/L Total Creatine Kinase 60 U/L 170 U/L 84 U/L Troponin I 0.03 NG/ML 0.19 NG/ML 0.04 NG/ML Total Protein 6.4 GM/DL 5.2 GM/DL 5.0 GM/DL Albumin 1.7 GM/DL 1.3 GM/DL 1.2 GM/DL Lipase 277 U/L Blood Urea Nitrogen 40 MG/DL 45 MG/DL Creatinine 3.73 MG/DL 2.90 MG/DL Random Glucose 281 MG/DL 186 MG/DL Calcium Level 7.4 MG/DL 7.2 MG/DL Sodium Level 135 MEQ/L 135 MEQ/L Potassium Level 5.2 MEQ/L 4.4 MEQ/L Chloride Level 101 MEQ/L 102 MEQ/L Carbon Dioxide Level 25.3 MEQ/L 22.0 MEQ/L Anion Gap 9 MEQ/L 11 MEQ/L Estimat Glomerular Filtration Rate 17 ML/MIN 22 ML/MIN Protein Corrected Calcium 8.5 MG/DL 8.3 MG/DL Creatine Kinase MB 1.2 NG/ML Microbiology Date/Time Source Procedure Growth Status 02/12/17 05:30 Blood Peripheral Aerobic Blood Culture Pending Received 02/12/17 05:30 Blood Peripheral Anaerobic Blood Culture Pending Received 02/12/17 05:25 Blood Peripheral Aerobic Blood Culture Pending Received 02/12/17 05:25 Blood Peripheral Anaerobic Blood Culture Pending Received 02/10/17 16:25 Blood Peripheral Aerobic Blood Culture - Final Staphylococcus Aureus Complete 02/10/17 16:25 Anaerobic Blood Culture - Final Staphylococcus Aureus Complete 02/10/17 16:10 Blood Peripheral Aerobic Blood Culture - Preliminary Staphylococcus Aureus Resulted 02/10/17 16:10 Anaerobic Blood Culture - Final Staphylococcus Aureus Resulted 02/11/17 02:30 Sputum Endotracheal Gram Stain - Final Resulted 02/11/17 02:30 Sputum Culture - Preliminary Staphylococcus Aureus Resulted 02/11/17 12:20 Urine Catheterized Urine Urine Culture - Preliminary NO GROWTH IN 24 HOURS. Resulted 02/11/17 09:10 Abscess Arm Acid Fast Stain Pending Received 02/11/17 09:10 Abscess Arm Mycobacterial Culture Pending Received 02/11/17 09:10 Abscess Arm Gram Stain - Final Resulted 02/11/17 09:10 Abscess Arm Wound Culture Pending Resulted 02/11/17 02:30 Abscess Arm Gram Stain - Final Resulted 02/11/17 02:30 Abscess Arm Wound Culture Pending Resulted Imaging Last Impressions Chest X-Ray 02/12/17 0600 Signed Impressions: Service Date/Time: Sunday, February 12, 2017 03:32 - CONCLUSION: 1. Support apparatus in good position. Relatively stable basilar airspace disease and pleural effusions. Trace Holloway MD Upper Extremity Ultrasound 02/10/17 Signed Impressions: Service Date/Time: Friday, February 10, 2017 18:46 - CONCLUSION: Occlusive thrombus in the cephalic and basilic veins. Benjamin Person MD Lung Scan-V Nuclear Medicine 02/10/17 Signed Impressions: Service Date/Time: Friday, February 10, 2017 22:17 - CONCLUSION: Low probability pulmonary embolism. Candido Patton MD Head CT 02/10/17 Signed Impressions: Service Date/Time: Friday, February 10, 2017 23:51 - CONCLUSION: Negative noncontrast CT brain. Candido Patton MD Chest CT 02/10/17 Signed Impressions: Service Date/Time: Friday, February 10, 2017 23:56 - CONCLUSION: Left lower lobe collapse with consolidation. Patchy infiltrates the medial right lower lung. Candido Patton MD Abdomen/Pelvis CT 02/10/17 Signed Impressions: Service Date/Time: Friday, February 10, 2017 23:59 - CONCLUSION: 1. Nonobstructing 12 mm calcified stone lower pole right kidney. 2. Atrophic left kidney with significant cortical thinning. 3. Bilateral fat-containing inguinal hernias, large on the right, and moderate on the left. 4. Consolidative collapse of the left lower lobe. Candido Patton MD Abdomen X-Ray 02/10/17 Signed Impressions: Service Date/Time: Friday, February 10, 2017 08:14 - CONCLUSION: No acute abdominal abnormality is identified. Angelo Allen MD Wrist X-Ray 02/06/17 0000 Signed Impressions: Service Date/Time: Monday, February 06, 2017 12:50 - CONCLUSION: Minimally displaced distal radius and ulnar fractures. Armando Dodd MD Lumbar Puncture Fluoroscopy 02/01/17 0000 Signed Impressions: Service Date/Time: January 09:35 - CONCLUSION: Uncomplicated fluoroscopically guided lumbar puncture. CSF was clear. Nabeel Peralta MD Head Magnetic Resonance Angiography 9/9/17 0000 Signed Impressions: Service Date/Time: Friday, January 27, 2017 10:33 - CONCLUSION: No intracranial vascular abnormality is identified. There is no aneurysm visualized. Angelo Allen MD IVC Filter Placement X-Ray 01/25/17 Signed Impressions: Service Date/Time: January 10:29 - CONCLUSION: Uncomplicated inferior vena cava filter placement as above. Yung Fowler MD Thoracic Spine MRI 01/24/17 Signed Impressions: Service Date/Time: Tuesday, January 24, 2017 22:29 - CONCLUSION: 1. Mild degenerative spondylosis most prominently at T11-L1 with slight effacement of the anterior thecal sac and left lateral recess. No significant neural foraminal stenosis. 2. No acute fracture. Juan Bhakta MD Renal Ultrasound 01/23/17 Signed Impressions: Service Date/Time: Monday, January 23, 2017 08:53 - CONCLUSION: 1. Evidence of chronic parenchymal disease of both kidneys. No obstructive uropathy or other acute abnormality demonstrated. 2. Trace ascites, nonspecific. Angelo Garrido MD Lumbar Spine MRI 01/23/17 Signed Impressions: Service Date/Time: Monday, January 23, 2017 17:01 - CONCLUSION: 1. At L4-5 is a broad-based disc protrusion with severe central canal and lateral recess stenosis and flattening of the exiting right L4 nerve root. 2. L5-S1 there is a disc protrusion and moderate stenosis with flattening of the exiting L5 nerve roots bilaterally. 3. At L3-4 there is a moderate to severe central stenosis and lateral recess stenosis with mild foraminal stenosis. 4. No acute fracture or spondylolisthesis. Trace Holloway MD Lower Extremity Ultrasound 01/23/17 Signed Impressions: Service Date/Time: Monday, January 23, 2017 09:53 - CONCLUSION: Bilateral focal lower extremity DVT involving the posterior tibial veins. Angelo Garrido MD Cervical Spine MRI 01/23/17 Signed Impressions: Service Date/Time: Monday, January 23, 2017 17:01 - CONCLUSION: 1. Multilevel cervical spine degenerative changes as above. 2. Mild degrees of spinal stenosis at C3/C4-C6/C7. No cord compression or cord signal abnormality. 3. Age indeterminate left paracentral/foraminal disc protrusion at C6/C7. 4. Multilevel foraminal stenosis, most severe on the left at C6/C7. Please see individual levels above. 5. No fracture or subluxation of the cervical spine. Angelo Garrido MD Brain MRI 01/23/17 0000 Signed Impressions: Service Date/Time: Monday, January 23, 2017 17:01 - CONCLUSION: 1. No acute stroke or other acute intracranial abnormality demonstrated. 2. Moderate severity chronic white matter changes, nonspecific but most likely related to chronic small vessel disease. 3. Few scattered tiny lacunar infarcts of the brainstem. 4. Given the findings are not entirely specific, clinical evaluation for possible multiple sclerosis recommended. Angelo Garrido MD Knee X-Ray 01/22/172053 Signed Impressions: Service Date/Time: Sunday, January 22, 2017 21:17 - CONCLUSION: 1. Evidence of moderate to large joint effusion. 2. No acute fracture or malalignment. 3. Mild 3 compartment osteoarthritic change. Benjamin Person MD Hip and Pelvis X-Ray 01/22/172053 Signed Impressions: Service Date/Time: Sunday, January 22, 2017 21:10 - CONCLUSION: 1. Mild to moderate degenerative change of both hips with no acute fracture or malalignment. There is flattening and remodeling of the right humeral head. Benjamin Person MD Physical Exam GENERAL: awake, not following, not in distress, on the vent SKIN: Cool and dry. No generalized rash, no ecchymoses and no evidence of embolic lesions. HEAD: Atraumatic. Normocephalic. No temporal wasting, or tenderness. EYES: [place] conjunctiva. No petechia or hemorrhage. Pupils equal, round and reactive to light. No scleral icterus. No injection or drainage. EARS, NOSE AND THROAT: Nose without bleeding or purulent nasal discharge. He is orally intubated NECK: Trachea midline. Supple and no meningeal signs CARDIOVASCULAR: Regular rate and rhythm. Soft heart sounds. No murmurs, rubs or gallops heard RESPIRATORY: Coarse BS bilaterally ABDOMEN: Soft, nondistended, bowel sounds present and normoactive, no reaction to palpation. No guarding. EXTREMITIES: No clubbing, cyanosis. Both hands less edematous. Has evidence of multiple gouty tophi in both hands and feet. Cool extremities but no mottling. LUE - there is a 2.5 cm incision with packing, has dry intact dressing in place, less induration NEUROLOGICAL: [place], not following commands PSYCHIATRIC: Unable to assess LINE: Multiple lines with no evidence of infection (new and place 02/10, [facility] TLC, L femoral [place], RUE PIV) : [place] in place, urine looks clear Assessment & Plan Remarks IMPRESSION GPC sepsis, with shock, likely Staph, due to suppurative thrombophlebitis LUE , S/P I and D and excision of portion of cephalic vein Respiratory failure, CXR now with infiltrates - sputum with Staph aureus Recent Rx 7 days high dose solumedrol for transverse myelitis Wu LE DVT has IVC filter placed 01/25 - ?hypercoagulable state Chronic kidney disease Known DM, HTN Gouty tophi both hands and feet RECOMMENDATION Continue vanco and Cfepeime Stop Micafungin Follow C/S and adjust Abx Monitor progress D/W Irene Vogel MD Feb 12, 2017 13:11
--- NOTE | 2017-02-12 13:26 | HHI.NPPN ---
Subjective History of Present Illness 61-year-old with history of urinary stone Additional Remarks Patient is intubated and sedated, started on pressors. Review of Systems General Constitutional: Fatigue Objective Data Data Vital Signs Date Time Temp Pulse Resp B/P (MAP) Pulse Ox O2 Delivery O2 Flow Rate FiO2 02/12/17 11:39 96 35 02/12/17 08:35 99 35 02/12/17 06:00 60 118/58 (78) 02/12/17 05:40 66 02/12/17 05:39 66 02/12/17 05:33 97 45 02/12/17 04:00 35 02/12/17 04:00 97.5 68 18 120/64 (82) 98 02/12/17 03:51 99 45 02/12/17 00:00 98.5 70 18 114/64 (81) 97 02/12/17 00:00 35 02/11/17 23:55 97 45 02/11/17 20:24 97 45 02/11/17 20:00 98.5 76 18 96/58 (71) 98 02/11/17 20:00 35 02/11/17 20:00 76 02/11/17 18:34 75 95/59 02/11/17 16:09 95 50 02/11/17 16:00 96.8 70 18 98/60 (73) 95 02/11/17 16:00 50 02/11/17 16:00 70 -: 02/12/17 0440 02/12/17 0440 Microbiology 02/12/17 Aerobic Blood Culture, Received Pending 02/12/17 Anaerobic Blood Culture, Received Pending 02/12/17 Aerobic Blood Culture, Received Pending 02/12/17 Anaerobic Blood Culture, Received Pending Physical Exam Neck Neck Exam: Neck Supple Pulmonary Resp Exam: Clear Bilaterally, Breath Sounds Equal Cardiology CV Exam: Regular, Normal Sinus Rhythm Gastrointestinal/Abdomen GI Exam: Soft, Non-Tender, Bowel Sounds Present Extremeties Extremities Exam: Trace Edema Neurologic Neuro Exam: Sedated Assessment/Plan Problem List: (1) Acute renal failure ICD Codes: N17.9 - Acute kidney failure, unspecified Status: Acute Plan: Patient develop Hypotension,sepsis staph aureus respiratory failure and increase WBC. Has aspiration pneumonia. developed sepsis with ARF again creatinine declined slightly post hydration NS 100 cc/hr Continue IVF and antibiotics. on Vanco follow levels Follow the urine out put and BMP. (2) CKD (chronic kidney disease) stage 3, GFR 30-59 ml/min ICD Codes: N18.3 - Chronic kidney disease, stage 3 (moderate) Status: Chronic Plan: Ultrasound revealed chronic kidney disease there is no kidney stones (3) Diabetes ICD Codes: E11.9 - Type 2 diabetes mellitus without complications Plan: Continue to monitor (4) Distal end of ulna fracture, closed ICD Codes: S52.609A - Unspecified fracture of lower end of unspecified ulna, initial encounter for closed fracture Status: Acute Plan: Orthopedic is following Problem Qualifiers (1) Acute renal failure: Qualified Codes: N17.9 - Acute kidney failure, unspecified Laura Liao MD Feb 12, 2017 13:26
[2017-02-12] MEDS ORDERED: PROPOFOL 1000 MG/100 ML INJ 100 ML IV PRN (16:00)
[2017-02-12] MEDS: INSULIN REGULAR (IV INFUSION) 100 UNITS in SODIUM CHLORIDE 0.9% INJ 99 ML IV SCH (16:18)
[2017-02-12] MEDS: SODIUM CHLOR 0.9% 1000 ML INJ 1,000 ML IV SCH (20:18)
[2017-02-12] MEDS: ATORVASTATIN 10 MG TAB PO SCH (20:42)
[2017-02-12] MEDS: FAMOTIDINE 20 MG/2 ML VIAL IV PUSH SCH (20:44)
[2017-02-12] MEDS: SODIUM CHLORIDE 0.9% FLUSH 10 ML FLUSH IV FLUSH SCH (20:44)
[2017-02-12] MEDS: MICAFUNGIN INJ 150 MG in SODIUM CHLORIDE 0.9% INJ 100 ML IV SCH (22:21)
[2017-02-13] VITALS (16 sets, daily range): BP systolic 102–147; BP diastolic 60–76; PULSE 70–109; RESP 18–23; TEMP 96.5–97.7; O2SAT 92–100
[2017-02-13] MEDS: CEFEPIME INJ 2,000 MG in SODIUM CHLORIDE 0.9% INJ 100 ML IV SCH (00:18)
[2017-02-13] MEDS: RESP: ALBUTEROL 2.5 MG/IPRATROPIUM 0.5 MG NEB (SCH) NEB ×4 (03:41→21:03)
[2017-02-13 04:33] LABS: APTT (PATIENT) 85.3 SEC (24.3-30.1)
[2017-02-13 04:40] LABS: AUTOMATED NEUTROPHIL # 15.2 TH/MM3 (1.8-7.7); BASOPHIL % 0.1 % (0.0-2.0); EOSINOPHIL % 0.1 % (0.0-4.0); HEMATOCRIT 22.8 % (39.0-51.0); LYMPH % 2.4 % (9.0-44.0); LYMPHOCYTE # 0.4 TH/MM3 (1.0-4.8); MEAN CELL VOLUME 83.1 FL (80.0-100.0); MEAN CORPUSCULAR HEMOGLOBIN 26.9 PG (27.0-34.0); MEAN CORPUSCULAR HGB CONC 32.4 % (32.0-36.0); MONO % 2.5 % (0.0-8.0); NEUT % 94.9 % (16.0-70.0); PLATELET COUNT 96 TH/MM3 (150-450); RED BLOOD COUNT 2.75 MIL/MM3 (4.50-5.90); RED CELL DISTRIBUTION WIDTH 18.5 % (11.6-17.2)
[2017-02-13 04:45] LABS: HEMO FLAGS AUTO DIFF
[2017-02-13 05:02] LABS: BICARBONATE 23.7 MEQ/L (21.0-32.0); POTASSIUM 3.8 MEQ/L (3.5-5.1)
[2017-02-13 05:13] LABS: CALCIUM-PROTEIN CORRECTED 8.1 MG/DL (8.5-10.1)
[2017-02-13 05:27] LABS: PLATELET ESTIMATE SMEAR LOW (NORMAL); PLATELET MORPHOLOGY NORMAL (NORMAL); SCAN/DIFF AUTO DIFF CONFIRMED
[2017-02-13] MEDS: SODIUM CHLOR 0.9% 1000 ML INJ 1,000 ML IV SCH ×2 (05:53→21:15)
[2017-02-13] MEDS: HYDROCORTISONE SOD SUCCINATE 100 MG VIAL IV PUSH SCH ×3 (05:56→21:15)
[2017-02-13] MEDS: HEPARIN-D5W 25,000 U/250 ML 250 ML IV PRN ×2 (05:58→23:28)
[2017-02-13] MEDS: DOCUSATE SODIUM 50 MG/SENNA 8.6 MG TAB PO SCH ×2 (08:00→21:00)
[2017-02-13] MEDS: MORPHINE SULFATE 4 MG/ML INJ IV PUSH PRN ×3 (08:46→23:59)
[2017-02-13] MEDS: SODIUM CHLORIDE 0.9% FLUSH 10 ML FLUSH IV FLUSH SCH ×2 (09:00→21:16)
[2017-02-13 09:35] LABS: BLOOD GAS BASE EXCESS -2.9 mmol/L (-2-2); BLOOD GAS CARBOXYHEMOGLOBIN 1.1 % (0-4); BLOOD GAS HCO3 20 mmol/L (22-26); BLOOD GAS METHEMOGLOBIN 0.6 % (0-2); BLOOD GAS O2 HGB SATURATION 97 % (90-100); BLOOD GAS OXYGEN CONTENT 12.3 Vol % (12.0-20.0); BLOOD GAS PCO2 24 mmHg (38-42); BLOOD GAS PO2 110 mmHg (61-120); BLOOD GAS TOTAL HGB 8.9 G/DL (12.0-16.0); CRITICAL VALUE YES; OXYGEN DEVICE VENTILATOR; TEMP CORR TO 98.6
[2017-02-13 09:36] LABS: DRAW SITE LT RADIAL; FIO2 35 %; NUMBER OF ARTERIAL PUNCTURES 1; STAT YES; ULNAR PULSE PRESENT
--- NOTE | 2017-02-13 10:19 | HHI.CCPN ---
Subjective Remarks/Hospital Course Date of admission: 01/22 Date of critical care medicine consult 02/10 due to acute hypoxemic respiratory failure requiring emergent intubation 62-year-old male with a past medical history of hypertension, hyperlipidemia, diabetes mellitus, gout, uric acid kidney stones, kidney disease of unknown stage who originally presented to [facility] emergency department on 01/22 after a fall in which he sustained a right distal ulna fracture. He had been experiencing a gradual primarily lower extremity weakness as well as upper extremity weakness that was progressive. Neurology consult was obtained. MRI revealed no acute stroke. He had multifocal white matter changes. Tiny lacunar infarcts of the brainstem. Lumbar MRI report states L4-L5 disc protrusion with cetnral canal stenosis. Dr. Blackwell evaluated and states no cord compression on MRI C/T spine and recommended nonoperative management. Symptoms were felt to be consistent with transverse myelitis and he underwent Solumedrol 250 mg IV q6 hours 01/27-02/02. He also was found to have occlusive thrombus in the bilateral posterior tibial veins. Heparin was being avoided because he had traumatic lumbar puncture on 01/26 and 02/01. IVC filter was placed 01/25. He was undergoing physical therapy, reportedly making some improvements with plan to eventually discharged home with his son (max assist standing, and bed to chair per PT note). Apparently he had some vomiting the evening of 02/09 and additional vomiting on 02/10. He had a fever 102.8 on 02/09. Last recorded bowel movement was 02/03. Tonight he had acute onset of severe hypoxemia and respiratory distress. [facility] called and he was brought emergently to [facility] where his sats were 64% on 100% nonrebreather with mean arterial pressure 44. He was emergently intubated, CVL and art line placed. He is in septic shock. SUBJ: 02/11: Patient remains intubated sedated, critically ill. FiO2 reduced to 80% after increasing PEEP to 12. In severe septic shock Levophed at 16 mcg/m, vasopressin at 0.04 international units. D/W vascular surgery Dr. Enciso. He performed bedside Left upper extremity incision and debridement and excision of septic cephalic vein. 02/12: Remains intubated sedated profoundly septic, in shock on vasopressin and 7 mcg/min Levophed. FiO2 has improved to 45%, WBC count remains elevated with 20 ,000 white count significant left shift. Slight improvement in creatinine 2.9 urine output 750 ml 24 hours. 2-D echo shows LV ejection fraction 20-25%, no vegetation reported. Blood cultures 4 staph aureus. Wound culture pending 02/13: Remains critically ill but stable to improving. WBC count is down to 16, creatinine improving to 2.36. Off all pressors. Urine output also improving. 1.5L in 24 hours Objective Vital Signs Date Time Temp Pulse Resp B/P (MAP) Pulse Ox O2 Delivery O2 Flow Rate FiO2 02/13/17 08:25 98 Nasal Cannula 4.00 02/13/17 08:00 86 02/13/17 08:00 35 02/13/17 08:00 97.7 23 137/75 (95) Intake and Output 02/13/17 02/13/17 02/14/17 08:00 16:00 00:00 Intake Total 1100 ml Output Total 1200 ml Balance -100 ml Result Diagram: 02/13/17 0400 02/13/17 0400 Other Results Microbiology Date/Time Source Procedure Growth Status 02/10/17 16:25 Blood Peripheral Aerobic Blood Culture - Final Staphylococcus Aureus Complete 02/10/17 16:25 Anaerobic Blood Culture - Final Staphylococcus Aureus Complete 02/10/17 16:10 Blood Peripheral Aerobic Blood Culture - Final Staphylococcus Aureus Complete 02/10/17 16:10 Anaerobic Blood Culture - Final Staphylococcus Aureus Complete 02/11/17 02:30 Sputum Endotracheal Gram Stain - Final Complete 02/11/17 02:30 Sputum Culture - Final Staphylococcus Aureus Complete 02/11/17 12:20 Urine Catheterized Urine Urine Culture - Final NO GROWTH IN 48 HOURS. Complete Laboratory Tests Test 02/13/17 08:06 Blood Gas Puncture Site LT RADIAL Blood Gas Patient Temperature 98.6 Blood Gas HCO3 20 mmol/L (22-26) Blood Gas Base Excess -2.9 mmol/L (-2-2) Blood Gas Oxygen Saturation 97 % (90-100) Arterial Blood pH 7.52 (7.380-7.420) Arterial Blood Partial Pressure CO2 24 mmHg (38-42) Arterial Blood Partial Pressure O2 110 mmHg (61-120) Arterial Blood Oxygen Content 12.3 Vol % (12.0-20.0) Arterial Blood Carboxyhemoglobin 1.1 % (0-4) Arterial Blood Methemoglobin 0.6 % (0-2) Blood Gas Hemoglobin 8.9 G/DL (12.0-16.0) Oxygen Delivery Device VENTILATOR Blood Gas Ventilator Setting Blood Gas Inspired Oxygen 35 % Objective Remarks GENERAL: Critically ill-appearing male who is intubated off sedation SKIN: Skin poor turgor. 2 cm stage II sacral decubitus ulcer, to the right of that is a 1 cm stage II sacral decubitus ulcer. There is sloughing of the skin throughout the buttocks. Linda intertrigo in the crease of the left scrotal region and in the right inguinal crease. Left upper arm status post I&D and partial removal of infected left cephalic vein HEAD: Atraumatic. Normocephalic. EYES: Pupils equal and round, 2 mm and reactive bilaterally. No scleral icterus. ENT: No nasal bleeding or discharge. Mucous membranes dry. No meningismus NECK: Trachea midline. No JVD. CARDIOVASCULAR: Tachycardic, sinus tachycardia on the monitor in the mid 100s. No murmurs rubs or gallops. RESPIRATORY: Intubated. Diminished breath sounds in the base GASTROINTESTINAL: Abdomen soft, non-tender, nondistended. Bowel sounds are hypoactive. No hepatosplenomegaly appreciated. MUSCULOSKELETAL: Right wrist is in a Velcro splint. There are deformities of bilateral elbow, fingers, knees, toes c/w gout tophi. NEUROLOGICAL: Intubated off all sedation, moves all extremities follow some commands. Difficult to assess muscle strength Procedures IVC filter placement 01/25/2017 LP 01/26/2017 Vascular Central Line Catheter: Yes Assessment to: Continue A/P Problem List: (1) Septic shock ICD Code: A41.9 - Sepsis, unspecified organism; R65.21 - Severe sepsis with septic shock Status: Acute (2) Acute respiratory failure ICD Code: J96.00 - Acute respiratory failure, unspecified whether with hypoxia or hypercapnia Status: Acute (3) Thrombophlebitis arm ICD Code: I80.8 - Phlebitis and thrombophlebitis of other sites (4) Aspiration pneumonia ICD Code: J69.0 - Pneumonitis due to inhalation of food and vomit Status: Acute (5) Atelectasis of left lung ICD Code: J98.11 - Atelectasis Status: Acute (6) Quadriparesis ICD Code: G82.50 - Quadriplegia, unspecified Status: Acute (7) DVT (deep venous thrombosis) ICD Code: I82.409 - Acute embolism and thrombosis of unspecified deep veins of unspecified lower extremity (8) Altered mental status ICD Code: R41.82 - Altered mental status, unspecified Status: Acute (9) CKD (chronic kidney disease) stage 3, GFR 30-59 ml/min ICD Code: N18.3 - Chronic kidney disease, stage 3 (moderate) Status: Chronic (10) Acute renal failure ICD Code: N17.9 - Acute kidney failure, unspecified Status: Acute (11) Diabetes mellitus ICD Code: E11.9 - Type 2 diabetes mellitus without complications Status: Chronic (12) Distal end of ulna fracture, closed ICD Code: S52.609A - Unspecified fracture of lower end of unspecified ulna, initial encounter for closed fracture Status: Acute (13) Gout ICD Code: M10.9 - Gout, unspecified Status: Chronic Assessment and Plan Assessment and Plan NEURO: Acute metabolic encephalopathy Quadriparesis secondary to suspected transverse myelitis Recurrent falls Suspected transverse myelitis. Received Solu-Medrol 250 mg IV every 6 hours 01/27- 02/02, currently on stress dose steroids Had LP 01/26 and 02/01. CSF culture negative 01/26, 02/01 Oligoclonal bands negative. CSF/serum IgG index is not elevated. VDRL nonreactive. Cryptococcal antigen negative. Brain MRI 01/23 no acute stroke. Few scattered lacunar infarcts of the brainstem. Moderate chronic white matter changes. MRI cervical/thoracic spine- mild spinal stenosis 3C3/C4 to C6/C7. No cord compression. RPR negative Neurology has been following, Dr. Crenshaw. Repeat CT brain 02/10 - negative Continue PT/OT RESP: Acute hypoxemic respiratory failure Left lower lobe collapse Probable healthcare associated pneumonia Intubated emergently 02/10. ACV TV 600 PEEP 8 FIO2 45%. Tolerating SBT, plan to extubate Diagnostic and therapeutic bronchoscopy performed for left lower lobe. White mucous plugs removed and BAL sent. VQ scan 02/10 low probability for PE. CT chest02/10 - left lower lobe collapse and consolidation. Right lower lobe infiltrate. Endotracheal tube did get dislodged and was advanced by Dr. Hogan under direct laryngoscopy around 5:30 02/11. DuoNeb every 6 hours scheduled and when necessary Sputum culture MSSA CV: Septic shock-resolved Cardiomyopathy with ejection fraction 20-25% Hyperlipidemia History of hypertension Reduce IV fluid to 50 ml per hour, creatinine improving Off all pressors. Hydrocortisone 100 mg IV every 8 hours for relative adrenal insufficiency. Of note patient was also on high-dose steroids about 10 days ago. Chele Trac for hemodynamic monitoring Hold metoprolol 25 every 8 hours. Norvasc 5 mg daily has been on hold since On atorvastatin 10 mg daily at bedtime Cardiology consult once clinically improved Consider beta blockers once hemodynamically improved, consider Wade inhibitors and Aldactone once creatinine is improved GI: CT abdomen and pelvis 02/10atrophic left kidney. Bilateral inguinal hernias fat- containing. Nonobstructing 12 mm right kidney stone FEN/RENAL: Acute kidney injury Chronic kidney disease stage 3-4 History of uric acid kidney stones with prior stent Continue Sloan. Monitor intake and output q1hr. Monitor electrolytes. RIOS/SPEP negative. Nephrology was following. UO improving ID: Septic shock-resolved Abscess and Suppurative thrombophlebitis left upper extremity Staph aureus bacteremia Acute aspiration pneumonia Continue ABX per ID Vancomycin, cefepime, Micafungin Source of sepsis most likely septic thrombophlebitis, status post I&D and excision of infected cephalic vein by Dr. Enciso Heparinize now for DVT and septic thrombophlebitis. ID consulted Grace HEME: DVT, bilateral posterior tibial vein IVC filter Septic thrombophlebitis with occlusive thrombus mid cephalic and basilic vein Ultrasound 01/23/17 - Bilateral lower extremity with occlusive posterior tibial vein DVTs. Heparin was initially started for DVT but was placed on hold due to LP with suspected traumatic tap. IV Heparin 02/11/17. IVC filter was placed 01/25/17. He has not been on a DVT prophylaxis. Last LP was 02/01. Discussed with Dr. Crenshaw who agrees appropriate to anticoagulate at this point. Ultrasound LUE 02/10 occlusive thrombus mid cephalic vein, basilic vein. ENDO: Diabetes mellitus, with hyperglycemia On Insulin gtt. Change to Levemir and SSI once patient can tolerate PO diet TSH was normal 01/23 MSK: Right distal ulna fracture. Dr. Nathan with orthopedics has evaluated and recommended nonoperative management. He has a right wrist splint in place. Gout PROPH: Famotidine for stress ulcer prophylaxis. Has IVC filter. Heparin drip initiated due to DVT/septic thrombophlebitis. ACCESS: Left IJ central venous line placed 02/10 #2. Left femoral art line placed 02/10-02/12 CCT 35 MIN Problem Qualifiers (1) Aspiration pneumonia: (2) DVT (deep venous thrombosis): Qualified Codes: I82.443 - Acute embolism and thrombosis of tibial vein, bilateral (3) Acute renal failure: Qualified Codes: N17.9 - Acute kidney failure, unspecified (4) Diabetes mellitus: (5) Gout: Antonietta Stephens MD Feb 13, 2017 10:19
[2017-02-13 10:42] LABS: APTT (PATIENT) 71.3 SEC (24.3-30.1)
--- NOTE | 2017-02-13 11:21 | PD.VS.PN ---
Subjective POD #: 2 Procedure(s): I&D left arm abscess with excision of left cephalic vein segment. Subjective/Hospital Course 62/M nonverbal Responds to pain Dressing to Left arm I/C/D (Namita Solorzano) Objective Vitals/I&O Date Time Temp Pulse Resp B/P (MAP) Pulse Ox O2 Delivery O2 Flow Rate FiO2 02/13/17 10:00 101 02/13/17 08:25 98 Nasal Cannula 4.00 02/13/17 08:25 98 Nasal Cannula 4 02/13/17 08:00 86 02/13/17 08:00 35 02/13/17 08:00 97.7 86 23 137/75 (95) 100 02/13/17 06:00 73 02/13/17 04:27 98 35 02/13/17 04:00 97.7 70 18 102/60 (74) 98 02/13/17 04:00 70 02/13/17 04:00 35 02/13/17 02:00 75 02/13/17 01:10 99 35 02/13/17 00:00 96.5 72 18 124/62 (82) 99 02/13/17 00:00 35 02/13/17 00:00 72 02/12/17 22:00 69 02/12/17 20:00 97.6 73 18 115/63 (80) 100 02/12/17 20:00 35 02/12/17 20:00 73 02/12/17 19:15 100 35 02/12/17 16:27 97 35 02/12/17 16:00 35 02/12/17 16:00 97.6 92 18 137/78 (97) 100 02/12/17 14:00 35 02/12/17 12:00 97.3 68 18 110/62 (78) 98 02/12/17 12:00 35 02/12/17 11:39 96 35 02/13/17 02/13/17 02/13/17 07:00 15:00 23:00 Intake Total 1200 ml Output Total 1200 ml Balance 0 ml Exam: Left arm incision with granulation tissue present No R/D/S/O noted L Radial pulse palpable Laboratory Laboratory Tests Test 02/13/17 04:00 02/13/17 08:06 02/13/17 10:00 White Blood Count 16.0 Red Blood Count 2.75 Hemoglobin 7.4 Hematocrit 22.8 Mean Corpuscular Volume 83.1 Mean Corpuscular Hemoglobin 26.9 Mean Corpuscular Hemoglobin Concent 32.4 Red Cell Distribution Width 18.5 Platelet Count 96 Mean Platelet Volume 9.5 Neutrophils (%) (Auto) 94.9 Lymphocytes (%) (Auto) 2.4 Monocytes (%) (Auto) 2.5 Eosinophils (%) (Auto) 0.1 Basophils (%) (Auto) 0.1 Neutrophils # (Auto) 15.2 Lymphocytes # (Auto) 0.4 Monocytes # (Auto) 0.4 Eosinophils # (Auto) 0.0 Basophils # (Auto) 0.0 CBC Comment AUTO DIFF Differential Comment AUTO DIFF CONFIRMED Platelet Estimate LOW Platelet Morphology Comment NORMAL Activated Partial Thromboplast Time 85.3 71.3 Blood Urea Nitrogen 43 Creatinine 2.36 Random Glucose 156 Total Protein 4.5 Calcium Level 6.7 Sodium Level 141 Potassium Level 3.8 Chloride Level 109 Carbon Dioxide Level 23.7 Anion Gap 8 Estimat Glomerular Filtration Rate 28 Protein Corrected Calcium 8.1 Random Vancomycin Level 19.2 Blood Gas Puncture Site LT RADIAL Blood Gas Patient Temperature 98.6 Blood Gas HCO3 20 Blood Gas Base Excess -2.9 Blood Gas Oxygen Saturation 97 Arterial Blood pH 7.52 Arterial Blood Partial Pressure CO2 24 Arterial Blood Partial Pressure O2 110 Arterial Blood Oxygen Content 12.3 Arterial Blood Carboxyhemoglobin 1.1 Arterial Blood Methemoglobin 0.6 Blood Gas Hemoglobin 8.9 Oxygen Delivery Device VENTILATOR Blood Gas Ventilator Setting Blood Gas Inspired Oxygen 35 Date/Time Source Procedure Growth Status 02/12/17 05:30 Blood Peripheral Aerobic Blood Culture - Preliminary Gram Positive Cocci Resulted 02/12/17 05:30 Blood Peripheral Anaerobic Blood Culture Pending Resulted 02/01/17 09:55 Cerebral Spinal Fluid Lumbar Puncture Fungal Smear - Final NO FUNGAL ELEMENTS SEEN. Resulted 02/01/17 09:55 Cerebral Spinal Fluid Lumbar Puncture Fungal Culture - Preliminary NO GROWTH IN 1 WEEK Resulted 02/11/17 02:30 Sputum Endotracheal Gram Stain - Final Complete 02/11/17 02:30 Sputum Culture - Final Staphylococcus Aureus Complete 02/11/17 12:20 Urine Catheterized Urine Urine Culture - Final NO GROWTH IN 48 HOURS. 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 Patient with clean left arm wound status post I&D. Wound vac may help. Salo Bravo DO, FACS Salo Bravo DO, FACS. (Salo Bravo DO) Namita Solorzano Feb 13, 2017 11:21 Salo Bravo DO Feb 13, 2017 15:35
--- NOTE | 2017-02-13 12:34 | HHI.IDPN ---
Subjective Subjective Remarks Patient is a 62-year-old male, admitted to the hospital for evaluation of pain in his right wrist. He gave a history of falling about a week ago and apparently had immediate pain in the right wrist. He did not seek any medical attention initially because reportedly he was very busy. He eventually presented, and he was found to have a distal ulnar fracture on plain films. He also had some redness and swelling. Orthopedics saw the patient, and was being treated conservatively with the splint. During this hospitalization also he started complaining of generalized weakness but more so in his lower extremity than his upper extremity. He had swelling in both lower extremity which revealed evidence of DVT in the posterior tibial veins. Neurology had seen the patient and he underwent lumbar puncture which apparently was traumatic. Patient was therefore not given anticoagulation because of the traumatic LP, and he underwent placement of an IVC filter on January 25. Patient had another lumbar puncture on February 01. He was felt to have transverse myelitis, and he was given high-dose IV Solu-Medrol from January 27 to February 02. There was apparently some improvement in his weakness. The imaging studies done for his weakness showed some spinal stenosis, and neurosurgery was consult that and recommended that there was no surgical intervention to be done. Patient has been stabilizing, but last night apparently deteriorated, and he ended up getting intubated, and had significant hypotension requiring pressors. There was also an ultrasound done of his left upper extremity which showed DVT, and there was evidence of superior 2 thrombophlebitis. Vascular surgery was consult to it and he had IND on his left upper extremity. Patient has had some fevers since yesterday. 2 blood cultures were done yesterday and they're now reported as growing gram-positive cocci in [place] in clusters. He is currently sedated and intubated. He is on Levophed and vasopressin. A central line was placed as well as a femoral a line. He apparently had an IV in his left upper extremity and that was removed yesterday. Patient also has history of chronic kidney disease, and nephrology evaluated the patient. He was just being monitored for his renal insufficiency. Infectious disease consultation has been requested to evaluate the patient. Notes reviewed Temps better Off pressors Extubated On RA, sats 93-94% Has new (+) BC Echo no vegetation BC x 2 with MSSA C/S sputum MSSA LUE C/S MSSA WBC improving Creatinine better Antibiotics Vancomcyin Cefepime Micafungin Lines LIJ TLC Past Medical History Gouty arthritis Chronic kidney disease Hx multiple kidney stones Hypertension GERD Diabetes Past Surgical History Rhinoplasty Kidney stone removal with cystoscopy and ureteral stent Allergies: Coded Allergies: levofloxacin (Verified Allergy, Severe, 01/22/17) Objective . Vital Signs Date Time Temp Pulse Resp B/P (MAP) Pulse Ox O2 Delivery O2 Flow Rate FiO2 02/13/17 10:00 101 02/13/17 08:25 98 Nasal Cannula 4.00 02/13/17 08:25 98 Nasal Cannula 4 02/13/17 08:00 86 02/13/17 08:00 35 02/13/17 08:00 97.7 86 23 137/75 (95) 100 02/13/17 06:00 73 02/13/17 04:27 98 35 02/13/17 04:00 97.7 70 18 102/60 (74) 98 02/13/17 04:00 70 02/13/17 04:00 35 02/13/17 02:00 75 02/13/17 01:10 99 35 02/13/17 00:00 96.5 72 18 124/62 (82) 99 02/13/17 00:00 35 02/13/17 00:00 72 02/12/17 22:00 69 02/12/17 20:00 97.6 73 18 115/63 (80) 100 02/12/17 20:00 35 02/12/17 20:00 73 02/12/17 19:15 100 35 02/12/17 16:27 97 35 02/12/17 16:00 35 02/12/17 16:00 97.6 92 18 137/78 (97) 100 02/12/17 14:00 35 . Laboratory Tests Test 02/12/17 04:40 02/13/17 04:00 White Blood Count 28.0 TH/MM3 16.0 TH/MM3 Red Blood Count 3.41 MIL/MM3 2.75 MIL/MM3 Hemoglobin 9.1 GM/DL 7.4 GM/DL Hematocrit 28.0 % 22.8 % Mean Corpuscular Volume 82.2 FL 83.1 FL Mean Corpuscular Hemoglobin 26.7 PG 26.9 PG Mean Corpuscular Hemoglobin Concent 32.5 % 32.4 % Red Cell Distribution Width 18.0 % 18.5 % Platelet Count 145 TH/MM3 96 TH/MM3 Mean Platelet Volume 9.0 FL 9.5 FL Neutrophils (%) (Auto) 94.6 % 94.9 % Lymphocytes (%) (Auto) 2.0 % 2.4 % Monocytes (%) (Auto) 3.2 % 2.5 % Eosinophils (%) (Auto) 0.0 % 0.1 % Basophils (%) (Auto) 0.2 % 0.1 % Neutrophils # (Auto) 26.5 TH/MM3 15.2 TH/MM3 Lymphocytes # (Auto) 0.6 TH/MM3 0.4 TH/MM3 Monocytes # (Auto) 0.9 TH/MM3 0.4 TH/MM3 Eosinophils # (Auto) 0.0 TH/MM3 0.0 TH/MM3 Basophils # (Auto) 0.0 TH/MM3 0.0 TH/MM3 CBC Comment AUTO DIFF AUTO DIFF Differential Total Cells Counted 100 Neutrophils % (Manual) 82 % Band Neutrophils % 15 % Lymphocytes % 2 % Monocytes % 1 % Neutrophils # (Manual) 27.2 TH/MM3 Differential Comment FINAL DIFF MANUAL AUTO DIFF CONFIRMED Platelet Estimate LOW LOW Platelet Morphology Comment NORMAL NORMAL Laboratory Tests Test 02/12/17 04:40 02/13/17 04:00 Blood Urea Nitrogen 45 MG/DL 43 MG/DL Creatinine 2.90 MG/DL 2.36 MG/DL Random Glucose 186 MG/DL 156 MG/DL Total Protein 5.0 GM/DL 4.5 GM/DL Albumin 1.2 GM/DL Calcium Level 7.2 MG/DL 6.7 MG/DL Magnesium Level 1.5 MG/DL Alkaline Phosphatase 87 U/L Aspartate Amino Transf (AST/SGOT) 25 U/L Alanine Aminotransferase (ALT/SGPT) 19 U/L Total Bilirubin 0.4 MG/DL Sodium Level 135 MEQ/L 141 MEQ/L Potassium Level 4.4 MEQ/L 3.8 MEQ/L Chloride Level 102 MEQ/L 109 MEQ/L Carbon Dioxide Level 22.0 MEQ/L 23.7 MEQ/L Anion Gap 11 MEQ/L 8 MEQ/L Estimat Glomerular Filtration Rate 22 ML/MIN 28 ML/MIN Protein Corrected Calcium 8.3 MG/DL 8.1 MG/DL Total Creatine Kinase 84 U/L Troponin I 0.04 NG/ML Microbiology Date/Time Source Procedure Growth Status 02/12/17 05:30 Blood Peripheral Aerobic Blood Culture - Preliminary Gram Positive Cocci Resulted 02/12/17 05:30 Blood Peripheral Anaerobic Blood Culture - Preliminary NO GROWTH IN 1 DAY Resulted 02/12/17 05:25 Blood Peripheral Aerobic Blood Culture - Preliminary NO GROWTH IN 1 DAY Resulted 02/12/17 05:25 Blood Peripheral Anaerobic Blood Culture - Preliminary NO GROWTH IN 1 DAY Resulted 02/10/17 16:25 Blood Peripheral Aerobic Blood Culture - Final Staphylococcus Aureus Complete 02/10/17 16:25 Anaerobic Blood Culture - Final Staphylococcus Aureus Complete 02/10/17 16:10 Blood Peripheral Aerobic Blood Culture - Final Staphylococcus Aureus Complete 02/10/17 16:10 Anaerobic Blood Culture - Final Staphylococcus Aureus Complete 02/11/17 02:30 Sputum Endotracheal Gram Stain - Final Complete 02/11/17 02:30 Sputum Culture - Final Staphylococcus Aureus Complete 02/11/17 12:20 Urine Catheterized Urine Urine Culture - Final NO GROWTH IN 48 HOURS. Complete 02/11/17 09:10 Abscess Arm Acid Fast Stain Pending Received 02/11/17 09:10 Abscess Arm Mycobacterial Culture Pending Received 02/11/17 09:10 Abscess Arm Gram Stain - Final Complete 02/11/17 09:10 Wound Culture - Final Staphylococcus Aureus Complete 02/11/17 02:30 Abscess Arm Gram Stain - Final Complete 02/11/17 02:30 Wound Culture - Final Staphylococcus Aureus Complete Imaging Last Impressions Chest X-Ray 02/12/17 0600 Signed Impressions: Service Date/Time: Sunday, February 12, 2017 03:32 - CONCLUSION: 1. Support apparatus in good position. Relatively stable basilar airspace disease and pleural effusions. Trace Holloway MD Upper Extremity Ultrasound 02/10/17 0000 Signed Impressions: Service Date/Time: Friday, February 10, 2017 18:46 - CONCLUSION: Occlusive thrombus in the cephalic and basilic veins. Benjamin Person MD Lung Scan- Nuclear Medicine 02/10/17 0000 Signed Impressions: Service Date/Time: Friday, February 10, 2017 22:17 - CONCLUSION: Low probability pulmonary embolism. Candido Patton MD Head CT 02/10/17 0000 Signed Impressions: Service Date/Time: Friday, February 10, 2017 23:51 - CONCLUSION: Negative noncontrast CT brain. Candido Patton MD Chest CT 02/10/17 0000 Signed Impressions: Service Date/Time: Friday, February 10, 2017 23:56 - CONCLUSION: Left lower lobe collapse with consolidation. Patchy infiltrates the medial right lower lung. Candido Patton MD Abdomen/Pelvis CT 02/10/17 0000 Signed Impressions: Service Date/Time: Friday, February 10, 2017 23:59 - CONCLUSION: 1. Nonobstructing 12 mm calcified stone lower pole right kidney. 2. Atrophic left kidney with significant cortical thinning. 3. Bilateral fat-containing inguinal hernias, large on the right, and moderate on the left. 4. Consolidative collapse of the left lower lobe. Candido Patton MD Abdomen X-Ray 02/10/17 0000 Signed Impressions: Service Date/Time: Friday, February 10, 2017 08:14 - CONCLUSION: No acute abdominal abnormality is identified. Angelo Allen MD Wrist X-Ray 02/06/17 0000 Signed Impressions: Service Date/Time: Monday, February 06, 2017 12:50 - CONCLUSION: Minimally displaced distal radius and ulnar fractures. Armando Dodd MD Lumbar Puncture Fluoroscopy 02/01/17 0000 Signed Impressions: Service Date/Time: January 09:35 - CONCLUSION: Uncomplicated fluoroscopically guided lumbar puncture. CSF was clear. Nabeel Peralta MD Head Magnetic Resonance Angiography 01/27/17 0000 Signed Impressions: Service Date/Time: Friday, January 27, 2017 10:33 - CONCLUSION: No intracranial vascular abnormality is identified. There is no aneurysm visualized. Angelo Allen MD IVC Filter Placement X-Ray 01/25/17 0000 Signed Impressions: Service Date/Time: January 10:29 - CONCLUSION: Uncomplicated inferior vena cava filter placement as above. Yung Fowler MD Thoracic Spine MRI 01/24/17 0000 Signed Impressions: Service Date/Time: Tuesday, January 24, 2017 22:29 - CONCLUSION: 1. Mild degenerative spondylosis most prominently at T11-L1 with slight effacement of the anterior thecal sac and left lateral recess. No significant neural foraminal stenosis. 2. No acute fracture. Juan Bhakta MD Renal Ultrasound 01/23/17 0000 Signed Impressions: Service Date/Time: Monday, January 23, 2017 08:53 - CONCLUSION: 1. Evidence of chronic parenchymal disease of both kidneys. No obstructive uropathy or other acute abnormality demonstrated. 2. Trace ascites, nonspecific. Angelo Garrido MD Lumbar Spine MRI 01/23/17 0000 Signed Impressions: Service Date/Time: Monday, January 23, 2017 17:01 - CONCLUSION: 1. At L4-5 is a broad-based disc protrusion with severe central canal and lateral recess stenosis and flattening of the exiting right L4 nerve root. 2. L5-S1 there is a disc protrusion and moderate stenosis with flattening of the exiting L5 nerve roots bilaterally. 3. At L3-4 there is a moderate to severe central stenosis and lateral recess stenosis with mild foraminal stenosis. 4. No acute fracture or spondylolisthesis. Trace Holloway MD Lower Extremity Ultrasound 01/23/17 0000 Signed Impressions: Service Date/Time: Monday, January 23, 2017 09:53 - CONCLUSION: Bilateral focal lower extremity DVT involving the posterior tibial veins. Angelo Garrido MD Cervical Spine MRI 01/23/17 0000 Signed Impressions: Service Date/Time: Monday, January 23, 2017 17:01 - CONCLUSION: 1. Multilevel cervical spine degenerative changes as above. 2. Mild degrees of spinal stenosis at C3/C4-C6/C7. No cord compression or cord signal abnormality. 3. Age indeterminate left paracentral/foraminal disc protrusion at C6/C7. 4. Multilevel foraminal stenosis, most severe on the left at C6/C7. Please see individual levels above. 5. No fracture or subluxation of the cervical spine. Angelo Garrido MD Brain MRI 01/23/17 0000 Signed Impressions: Service Date/Time: Monday, January 23, 2017 17:01 - CONCLUSION: 1. No acute stroke or other acute intracranial abnormality demonstrated. 2. Moderate severity chronic white matter changes, nonspecific but most likely related to chronic small vessel disease. 3. Few scattered tiny lacunar infarcts of the brainstem. 4. Given the findings are not entirely specific, clinical evaluation for possible multiple sclerosis recommended. Angelo Garrido MD Knee X-Ray [id number]/22/[id number] Signed Impressions: Service Date/Time: Sunday, January 22, 2017 21:17 - CONCLUSION: 1. Evidence of moderate to large joint effusion. 2. No acute fracture or malalignment. 3. Mild 3 compartment osteoarthritic change. Benjamin Person MD Hip and Pelvis X-Ray [id number]/22/[id number] Signed Impressions: Service Date/Time: Sunday, January 22, 2017 21:10 - CONCLUSION: 1. Mild to moderate degenerative change of both hips with no acute fracture or malalignment. There is flattening and remodeling of the right humeral head. Benjamin Person MD Physical Exam GENERAL: awake, focusing, not in distress SKIN: Cool and dry. No generalized rash, no ecchymoses and no evidence of embolic lesions. HEAD: Atraumatic. Normocephalic. No temporal wasting, or tenderness. EYES: [place] conjunctiva. No petechia or hemorrhage. Pupils equal, round and reactive to light. No scleral icterus. No injection or drainage. EARS, NOSE AND THROAT: Nose without bleeding or purulent nasal discharge. He is orally intubated NECK: Trachea midline. Supple and no meningeal signs CARDIOVASCULAR: Regular rate and rhythm. Soft heart sounds. No murmurs, rubs or gallops heard RESPIRATORY: Coarse BS bilaterally ABDOMEN: Soft, nondistended, bowel sounds present and normoactive, no reaction to palpation. No guarding. EXTREMITIES: No clubbing, cyanosis. Both hands less edematous. Has evidence of multiple gouty tophi in both hands and feet. Cool extremities but no mottling. LUE - there is a 2.5 cm incision with packing, has dry intact dressing in place, less induration NEUROLOGICAL: Awake, focusing PSYCHIATRIC: SOme agitation LINE: Line with no evidence of infection : Sloan in place, urine looks clear Assessment & Plan Remarks IMPRESSION MSSA sepsis, with shock, likely Staph, due to suppurative thrombophlebitis LUE, S/P I and D and excision of portion of cephalic vein - off pressors Respiratory failure, CXR now with infiltrates - sputum with MSSA - extubated Recent Rx 7 days high dose solumedrol for transverse myelitis Wu LE DVT has IVC filter placed 01/25 - ?hypercoagulable state Chronic kidney disease Known DM, HTN Gouty tophi both hands and feet RECOMMENDATION IV Oxacillin Stop other Abx Repeat BC ti document clearing Follow C/S and adjust Abx Monitor progress D/W Irene Vogel MD Feb 13, 2017 12:34
--- NOTE | 2017-02-13 12:52 | HHI.NPPN ---
Subjective History of Present Illness 61-year-old with history of urinary stone Additional Remarks Patient is extubated Review of Systems General Constitutional: Fatigue Objective Data Data Vital Signs Date Time Temp Pulse Resp B/P (MAP) Pulse Ox O2 Delivery O2 Flow Rate FiO2 02/13/17 10:00 101 02/13/17 08:25 98 Nasal Cannula 4.00 02/13/17 08:25 98 Nasal Cannula 4 02/13/17 08:00 86 02/13/17 08:00 35 02/13/17 08:00 97.7 86 23 137/75 (95) 100 02/13/17 06:00 73 02/13/17 04:27 98 35 02/13/17 04:00 97.7 70 18 102/60 (74) 98 02/13/17 04:00 70 02/13/17 04:00 35 02/13/17 02:00 75 02/13/17 01:10 99 35 02/13/17 00:00 96.5 72 18 124/62 (82) 99 02/13/17 00:00 35 02/13/17 00:00 72 02/12/17 22:00 69 02/12/17 20:00 97.6 73 18 115/63 (80) 100 02/12/17 20:00 35 02/12/17 20:00 73 02/12/17 19:15 100 35 02/12/17 16:27 97 35 02/12/17 16:00 35 02/12/17 16:00 97.6 92 18 137/78 (97) 100 02/12/17 14:00 35 -: 02/13/17 0400 02/13/17 0400 Physical Exam Neck Neck Exam: Neck Supple Pulmonary Resp Exam: Clear Bilaterally, Breath Sounds Equal Cardiology CV Exam: Regular, Normal Sinus Rhythm Gastrointestinal/Abdomen GI Exam: Soft, Non-Tender, Bowel Sounds Present Extremeties Extremities Exam: Trace Edema Neurologic Neuro Exam: Sedated Assessment/Plan Problem List: (1) Acute renal failure ICD Codes: N17.9 - Acute kidney failure, unspecified Status: Acute Plan: Patient develop Hypotension,sepsis staph aureus respiratory failure and increase WBC. Has aspiration pneumonia. developed sepsis with ARF again creatinine declined slightly post hydration NS 50 cc/hr, cr declined UOP 1.5 L Continue IVF and antibiotics. on Vanco follow levels Follow the urine out put and BMP. (2) CKD (chronic kidney disease) stage 3, GFR 30-59 ml/min ICD Codes: N18.3 - Chronic kidney disease, stage 3 (moderate) Status: Chronic Plan: Ultrasound revealed chronic kidney disease there is no kidney stones (3) Diabetes ICD Codes: E11.9 - Type 2 diabetes mellitus without complications Plan: Continue to monitor (4) Distal end of ulna fracture, closed ICD Codes: S52.609A - Unspecified fracture of lower end of unspecified ulna, initial encounter for closed fracture Status: Acute Plan: Orthopedic is following Problem Qualifiers (1) Acute renal failure: Qualified Codes: N17.9 - Acute kidney failure, unspecified Laura Liao MD Feb 13, 2017 12:52
[2017-02-13] MEDS: OXACILLIN INJ 2 GM in SODIUM CHLORIDE 0.9% INJ 100 ML IV SCH ×3 (14:18→21:15)
[2017-02-13] MEDS ORDERED: VANCOMYCIN INJ 1,500 MG in SODIUM CHLORID 0.9% 500 ML INJ 500 ML IV ONE (16:00)
[2017-02-13 17:03] LABS: APTT (PATIENT) 64.1 SEC (24.3-30.1)
[2017-02-13] MEDS: VASOPRESSIN INJ 40 UNITS in DEXTROSE 5% IN WATER 100ML INJ 98 ML IV SCH ×2 (20:21)
[2017-02-13] MEDS: ATORVASTATIN 10 MG TAB PO SCH (21:00)
[2017-02-13] MEDS: FAMOTIDINE 20 MG/2 ML VIAL IV PUSH SCH (21:16)
[2017-02-13] MEDS: INSULIN REGULAR (IV INFUSION) 100 UNITS in SODIUM CHLORIDE 0.9% INJ 99 ML IV SCH (21:33)
[2017-02-14] VITALS (15 sets, daily range): BP systolic 99–149; BP diastolic 57–83; PULSE 90–107; RESP 18–24; TEMP 96.4–97.3; O2SAT 95–98
[2017-02-14] MEDS: DEXMEDETOMIDINE INJ 200 MCG in SODIUM CHLORIDE 0.9% INJ 50 ML IV PRN ×2 (02:10→04:25)
[2017-02-14] MEDS: OXACILLIN INJ 2 GM in SODIUM CHLORIDE 0.9% INJ 100 ML IV SCH ×6 (02:23→20:51)
[2017-02-14] MEDS: RESP: ALBUTEROL 2.5 MG/IPRATROPIUM 0.5 MG NEB (SCH) NEB ×3 (03:27→19:44)
[2017-02-14 04:08] LABS: HEMATOCRIT 25.9 % (39.0-51.0); MEAN CELL VOLUME 83.2 FL (80.0-100.0); MEAN CORPUSCULAR HEMOGLOBIN 26.3 PG (27.0-34.0); MEAN CORPUSCULAR HGB CONC 31.6 % (32.0-36.0); PLATELET COUNT 133 TH/MM3 (150-450); RED BLOOD COUNT 3.12 MIL/MM3 (4.50-5.90); RED CELL DISTRIBUTION WIDTH 18.6 % (11.6-17.2); WHITE BLOOD COUNT 12.8 TH/MM3 (4.0-11.0)
[2017-02-14 04:13] LABS: HEMO FLAGS AUTO DIFF
[2017-02-14 04:21] LABS: APTT (PATIENT) 71.4 SEC (24.3-30.1)
[2017-02-14 04:44] LABS: BICARBONATE 24.5 MEQ/L (21.0-32.0); CALCIUM-PROTEIN CORRECTED 8.1 MG/DL (8.5-10.1); MAGNESIUM 1.9 MG/DL (1.5-2.5); TOTAL BILIRUBIN ADULT 0.3 MG/DL (0.2-1.0)
--- NOTE | 2017-02-14 04:55 | RADRPT ---
EXAM DATE/TIME: 02/14/2017 04:08 [facility] COMPARISON: CHEST SINGLE AP, February 12, 2017, 3:32. INDICATIONS : Shortness of breath. MEDICAL HISTORY : Gastroesophageal reflux disease. Arthritis. Renal calculi. Cardiovascular disease. Hypertension. Deep venous thrombosis. Diabetes SURGICAL HISTORY : Nasal surgery. Stents in kidneys. ENCOUNTER: Subsequent ACUITY: 3 weeks PAIN SCORE: Non-responsive. LOCATION: Bilateral chest FINDINGS: A single view of the chest demonstrates left central line in superior vena cava. Basilar airspace dis ease, left greater than right with small effusions. No pneumothorax. CONCLUSION: 1. Basilar airspace disease, left greater than right with small pleural effusions. Left central line in superior vena cava. Trace Holloway MD on February 14, 2017 at 4:52 Board Certified Radiologist. This report was verified electronically.
[2017-02-14] MEDS: HYDROCORTISONE SOD SUCCINATE 100 MG VIAL IV PUSH SCH (05:03)
[2017-02-14 05:19] LABS: BANDS 11 % (0-6); NEUTROPHIL # MANUAL DIFF 12.3 TH/MM3 (1.8-7.7); POLYS (SEG NEUTROPHILS) 85 % (16-70); WBC DIFF SAMPLE 100
[2017-02-14 05:20] LABS: SCAN/DIFF FINAL DIFF MANUAL
[2017-02-14 05:21] LABS: ACANTHOCYTES OCC (NORMAL); HELMET CELLS OCC (NORMAL); PLATELET MORPHOLOGY NORMAL (NORMAL); TOXIC VACUOLATION PRESENT (NONE SEEN)
[2017-02-14 05:22] LABS: KERATOCYTES OCC (NORMAL)
[2017-02-14 05:25] LABS: PLATELET ESTIMATE SMEAR LOW (NORMAL)
[2017-02-14] MEDS ORDERED: 1/2 NS + KCL 20 MEQ INJ 1,000 ML IV SCH (07:00)
[2017-02-14] MEDS ORDERED: POTASSIUM CHLOR 40 MEQ PREMIX 100 ML IV ONE (07:00)
--- NOTE | 2017-02-14 07:06 | HHI.CCPN ---
Subjective Remarks/Hospital Course Date of admission: 01/22 Date of critical care medicine consult 02/10 due to acute hypoxemic respiratory failure requiring emergent intubation 62-year-old male with a past medical history of hypertension, hyperlipidemia, diabetes mellitus, gout, uric acid kidney stones, kidney disease of unknown stage who originally presented to [facility] emergency department on 01/22 after a fall in which he sustained a right distal ulna fracture. He had been experiencing a gradual primarily lower extremity weakness as well as upper extremity weakness that was progressive. Neurology consult was obtained. MRI revealed no acute stroke. He had multifocal white matter changes. Tiny lacunar infarcts of the brainstem. Lumbar MRI report states L4-L5 disc protrusion with cetnral canal stenosis. Dr. Blackwell evaluated and states no cord compression on MRI C/T spine and recommended nonoperative management. Symptoms were felt to be consistent with transverse myelitis and he underwent Solumedrol 250 mg IV q6 hours 01/27-02/02. He also was found to have occlusive thrombus in the bilateral posterior tibial veins. Heparin was being avoided because he had traumatic lumbar puncture on 01/26 and 02/01. IVC filter was placed 01/25. He was undergoing physical therapy, reportedly making some improvements with plan to eventually discharged home with his son (max assist standing, and bed to chair per PT note). Apparently he had some vomiting the evening of 02/09 and additional vomiting on 02/10. He had a fever 102.8 on 02/09. Last recorded bowel movement was 02/03. Tonight he had acute onset of severe hypoxemia and respiratory distress. [facility] called and he was brought emergently to [facility] where his sats were 64% on 100% nonrebreather with mean arterial pressure 44. He was emergently intubated, CVL and art line placed. He is in septic shock. SUBJ: 02/11: Patient remains intubated sedated, critically ill. FiO2 reduced to 80% after increasing PEEP to 12. In severe septic shock Levophed at 16 mcg/m, vasopressin at 0.04 international units. D/W vascular surgery Dr. Enciso. He performed bedside Left upper extremity incision and debridement and excision of septic cephalic vein. 02/12: Remains intubated sedated profoundly septic, in shock on vasopressin and 7 mcg/min Levophed. FiO2 has improved to 45%, WBC count remains elevated with 20 ,000 white count significant left shift. Slight improvement in creatinine 2.9 urine output 750 ml 24 hours. 2-D echo shows LV ejection fraction 20-25%, no vegetation reported. Blood cultures 4 staph aureus. Wound culture pending 02/13: Remains critically ill but stable to improving. WBC count is down to 16, creatinine improving to 2.36. Off all pressors. Urine output also improving. 1.5L in 24 hours 02/14: Extubated 02/13. Tolerating well. WBC now down to 12.8. Creat improving 2.3 to 2. UO 3.4L. remains off all pressors. Was started on Precedex yesterday night for agitation, currently on 0.5 g per KG per hour. Chest x-ray shows left more than right air space disease Objective Vital Signs Date Time Temp Pulse Resp B/P (MAP) Pulse Ox O2 Delivery O2 Flow Rate FiO2 02/14/17 06:00 93 02/14/17 05:00 108/62 (77) 02/14/17 04:00 96.8 18 98 02/13/17 21:04 Nasal Cannula 3.00 02/13/17 08:00 35 Intake and Output 02/14/17 02/14/17 02/15/17 08:00 16:00 00:00 Intake Total 897.2 ml Output Total 1350 ml Balance -452.8 ml Result Diagram: 02/14/17 0345 02/14/17 0345 Other Results Microbiology Date/Time Source Procedure Growth Status 02/11/17 12:20 Urine Catheterized Urine Urine Culture - Final NO GROWTH IN 48 HOURS. Complete 02/11/17 09:10 Abscess Arm Gram Stain - Final Complete 02/11/17 09:10 Wound Culture - Final Staphylococcus Aureus Complete Laboratory Tests Test 02/13/17 08:06 Blood Gas Puncture Site LT RADIAL Blood Gas Patient Temperature 98.6 Blood Gas HCO3 20 mmol/L (22-26) Blood Gas Base Excess -2.9 mmol/L (-2-2) Blood Gas Oxygen Saturation 97 % (90-100) Arterial Blood pH 7.52 (7.380-7.420) Arterial Blood Partial Pressure CO2 24 mmHg (38-42) Arterial Blood Partial Pressure O2 110 mmHg (61-120) Arterial Blood Oxygen Content 12.3 Vol % (12.0-20.0) Arterial Blood Carboxyhemoglobin 1.1 % (0-4) Arterial Blood Methemoglobin 0.6 % (0-2) Blood Gas Hemoglobin 8.9 G/DL (12.0-16.0) Oxygen Delivery Device VENTILATOR Blood Gas Ventilator Setting Blood Gas Inspired Oxygen 35 % Objective Remarks GENERAL: Critically ill-appearing male who is on 2L NC, somnolent but wakes up to stimulation SKIN: Skin poor turgor. 2 cm stage II sacral decubitus ulcer, to the right of that is a 1 cm stage II sacral decubitus ulcer. There is sloughing of the skin throughout the buttocks. Linda intertrigo in the crease of the left scrotal region and in the right inguinal crease. Left upper arm status post I&D and partial removal of infected left cephalic vein HEAD: Atraumatic. Normocephalic. EYES: Pupils equal and round, 2 mm and reactive bilaterally. ENT: No nasal bleeding or discharge. Mucous membranes dry. NECK: Trachea midline. No JVD. CARDIOVASCULAR: S1-S2 normal. No murmurs rubs or gallops. RESPIRATORY: Air entry equal bilaterally. Diminished breath sounds in the base GASTROINTESTINAL: Abdomen soft, non-tender, nondistended. Bowel sounds are hypoactive. No hepatosplenomegaly appreciated. MUSCULOSKELETAL: Right wrist is in a Velcro splint. There are deformities of bilateral elbow, fingers, knees, toes c/w gout tophi. NEUROLOGICAL: Currently on Precedex, wakes up to stimulation intermittently follows some commands. Moves upper and lower extremity, lower extremity appears weaker Procedures IVC filter placement 01/25/2017 LP 01/26/2017 A/P Problem List: (1) Septic shock ICD Code: A41.9 - Sepsis, unspecified organism; R65.21 - Severe sepsis with septic shock Status: Acute (2) Acute respiratory failure ICD Code: J96.00 - Acute respiratory failure, unspecified whether with hypoxia or hypercapnia Status: Acute (3) Thrombophlebitis arm ICD Code: I80.8 - Phlebitis and thrombophlebitis of other sites (4) Aspiration pneumonia ICD Code: J69.0 - Pneumonitis due to inhalation of food and vomit Status: Acute (5) Atelectasis of left lung ICD Code: J98.11 - Atelectasis Status: Acute (6) Quadriparesis ICD Code: G82.50 - Quadriplegia, unspecified Status: Acute (7) DVT (deep venous thrombosis) ICD Code: I82.409 - Acute embolism and thrombosis of unspecified deep veins of unspecified lower extremity (8) Altered mental status ICD Code: R41.82 - Altered mental status, unspecified Status: Acute (9) CKD (chronic kidney disease) stage 3, GFR 30-59 ml/min ICD Code: N18.3 - Chronic kidney disease, stage 3 (moderate) Status: Chronic (10) Acute renal failure ICD Code: N17.9 - Acute kidney failure, unspecified Status: Acute (11) Diabetes mellitus ICD Code: E11.9 - Type 2 diabetes mellitus without complications Status: Chronic (12) Distal end of ulna fracture, closed ICD Code: S52.609A - Unspecified fracture of lower end of unspecified ulna, initial encounter for closed fracture Status: Acute (13) Gout ICD Code: M10.9 - Gout, unspecified Status: Chronic Assessment and Plan Assessment and Plan NEURO: Acute metabolic encephalopathy Quadriparesis secondary to suspected transverse myelitis Recurrent falls Suspected transverse myelitis. Received Solu-Medrol 250 mg IV every 6 hours 01/27- 02/02, currently on stress dose steroids, dose reduced to 50 q8 LP 01/26 and 02/01. CSF culture negative 01/26, 02/01 Oligoclonal bands negative. CSF/serum IgG index is not elevated. VDRL nonreactive. Cryptococcal antigen negative. Brain MRI 01/23 no acute stroke. Few scattered lacunar infarcts of the brainstem. Moderate chronic white matter changes. MRI cervical/thoracic spine- mild spinal stenosis 3C3/C4 to C6/C7. No cord compression. RPR negative Neurology has been following, Dr. Crenshaw. Repeat CT brain 02/10 - negative Continue PT/OT RESP: Acute hypoxemic respiratory failure Left lower lobe collapse Probable healthcare associated pneumonia Intubated emergently 02/10. Extubated 02/13/17 tolerating well respiratory underwood Diagnostic and therapeutic bronchoscopy performed for left lower lobe. White mucous plugs removed and BAL sent growing MSSA VQ scan 02/10 low probability for PE. CT chest02/10 - left lower lobe collapse and consolidation. Right lower lobe infiltrate. Endotracheal tube did get dislodged and was advanced by Dr. Hogan under direct laryngoscopy around 5:30 02/11. DuoNeb every 6 hours scheduled and when necessary CV: Septic shock-resolved Cardiomyopathy with ejection fraction 20-25% Hyperlipidemia History of hypertension IV fluid to 1/2 NS 50 ml per hour, creatinine improving Off all pressors. Hydrocortisone 100 mg IV every 8 hours for relative adrenal insufficiency-reduce to 50 q8 02/14. Of note patient was also on high-dose steroids about 10 days ago. Hold metoprolol 25 every 8 hours. Norvasc 5 mg daily has been on hold since On atorvastatin 10 mg daily at bedtime Cardiology consulted Consider resuming beta blockers once hemodynamically stable, consider Wade inhibitors and Aldactone once creatinine is improved IV heparin for DVT GI: Severe protein energy malnutrition CT abdomen and pelvis 02/10 atrophic left kidney. Bilateral inguinal hernias fat- containing. Nonobstructing 12 mm right kidney stone Diet per speech FEN/RENAL: Acute kidney injury Chronic kidney disease stage 3-4 History of uric acid kidney stones with prior stent Continue Sloan due to renal failure. Monitor intake and output q1hr. Monitor electrolytes. RIOS/SPEP negative. Nephrology was following. UO improving 3.4 L in 24 hours ID: Septic shock-resolved Abscess and Suppurative thrombophlebitis left upper extremity MSSA bacteremia Acute aspiration pneumonia Antibiotics matter to oxacillin by ID Source of sepsis most likely septic thrombophlebitis, status post I&D and excision of infected cephalic vein by Dr. Enciso Heparin for DVT and septic thrombophlebitis. 2-D echo no vegetation seen HEME: DVT, bilateral posterior tibial vein IVC filter Septic thrombophlebitis with occlusive thrombus mid cephalic and basilic vein Ultrasound 01/23/17 - Bilateral lower extremity with occlusive posterior tibial vein DVTs. Heparin was initially started for DVT but was placed on hold due to LP with suspected traumatic tap. IV Heparin 02/11/17. IVC filter was placed 01/25/17. He has not been on a DVT prophylaxis. Last LP was 02/01. Discussed with Dr. Crenshaw who agrees appropriate to anticoagulate at this point. Ultrasound LUE 02/10 occlusive thrombus mid cephalic vein, basilic vein. ENDO: Diabetes mellitus, with hyperglycemia On Insulin gtt. Change to Levemir and SSI once patient can tolerate PO diet TSH was normal 01/23 MSK: Right distal ulna fracture. Dr. Nathan with orthopedics has evaluated and recommended nonoperative management. Right wrist splint in place. Gout PROPH: Famotidine for stress ulcer prophylaxis. Has IVC filter. Heparin drip initiated due to DVT/septic thrombophlebitis. ACCESS: Left IJ central venous line placed 02/10 DC after establishing peripheral IV. Left femoral art line placed 02/10-02/12 Level 3 Problem Qualifiers (1) Aspiration pneumonia: (2) DVT (deep venous thrombosis): Qualified Codes: I82.443 - Acute embolism and thrombosis of tibial vein, bilateral (3) Acute renal failure: Qualified Codes: N17.9 - Acute kidney failure, unspecified (4) Diabetes mellitus: (5) Gout: Antonietta Stephens MD Feb 14, 2017 07:06
--- NOTE | 2017-02-14 08:49 | PD.CONS ---
HPI Service CV Consult Requested By Reason for Consult cardiomyopathy Primary Care Physician Unknown History of Present Illness Here with HTN, hyperlipidemia and type 2 diabetes for a fall and ulnar fracture. He was also diagnoses with a CVA. We have been consulted because echo shows EF 20 to 25%. He was recently extubate and has mental status changes. He can follow commands only. All information was garnered from speaking with his nurse and review of the EHR. He has no history of heart disease that I can find. (Francisco Cobian) Review of Systems ROS Limitations: Altered Mental Status (Francisco Cobian) Past Family Social History Allergies: Coded Allergies: levofloxacin (Verified Allergy, Severe, 01/22/17) Past Medical History Gouty arthritis Chronic kidney disease secondary to multiple kidney stones Past Surgical History Rhinoplasty while in hospital 2007 kidney stents Reported Medications Reported Meds & Active Scripts Active Hydrocodone-Acetaminophen 7.5-325 mg Tab 1 Tab PO Q4H PRN Norvasc (Amlodipine Besylate) 5 Mg Tab 5 Mg PO DAILY Wheelchair Elevated Leg (Device) 1 Mis Mis Ea DIRECTED Commode 3-in-1 (Device) 1 Mis Mis Ea .ROUTE DIRECTED Reported Atorvastatin (Atorvastatin Calcium) 10 Mg Tab 10 Mg PO HS Glipizide 5 Mg Tab 5 Mg PO BIDAC Take 30 minutes before a meal Atenolol 25 Mg Tab 25 Mg PO DAILY Active Ordered Medications Current Medications Medications (Trade) Dose Ordered Sig/Rosalia Route Start Time Stop Time Status Last Admin (NS Flush) 2 ml UNSCH PRN IV FLUSH 01/23/17 00:30 02/01/17 05:07 (NS Flush) 2 ml BID IV FLUSH 01/23/17 09:00 02/13/17 21:16 (Tylenol) 650 mg Q4H PRN PO 01/23/17 00:30 02/09/17 20:49 (Zofran Inj) 4 mg Q6H PRN IVP 01/23/17 00:30 02/10/17 06:45 ([place] 5-325 Mg) 1 tab Q4H PRN PO 01/23/17 00:30 02/08/17 22:58 ([place] 7.5-325 Mg) 1 tab Q4H PRN PO 01/23/17 00:30 02/09/17 18:40 (Narcan Inj) 0.4 mg UNSCH PRN IV 01/23/17 00:30 ([place]-Colace) 1 tab BID PO 01/23/17 09:00 02/13/17 08:00 (Milk Of Magnestephania Liq) 30 ml Q12H PRN PO 01/23/17 00:30 02/09/17 12:30 (Senokot) 17.2 mg Q12H PRN PO 01/23/17 00:30 02/09/17 12:30 (Dulcolax Supp) 10 mg DAILY PRN RECTAL 01/23/17 00:30 (Tenormin) 25 mg DAILY PO 01/24/17 13:00 Future Hold 02/08/17 08:08 (Lipitor) 10 mg HS PO 01/24/17 21:00 02/12/17 20:42 (Catapres) 0.1 mg Q6H PRN PO 01/24/17 18:00 01/28/17 12:34 (Norvasc) 5 mg DAILY PO 01/28/17 09:00 Future Hold 02/08/17 08:08 (Morphine Inj) 2 mg Q3H PRN IV PUSH 02/10/17 06:15 02/13/17 23:59 (Brethine Inj) 1 mg UNSCH PRN SQ 02/10/17 20:30 (Pepcid Inj) 20 mg HS IV PUSH 02/10/17 22:45 02/13/17 21:16 (D50w (Vial) Inj) 50 ml UNSCH PRN IV PUSH 02/11/17 05:45 (Glucagon Inj) 1 mg UNSCH PRN OTHER 02/11/17 05:45 Heparin Sodium/ Dextrose 250 ml @ 17.28 mls/ hr TITRATE PRN IV 02/11/17 07:00 02/13/17 23:28 (Duoneb Neb) 1 ampule Q6HR NEB NEB 02/11/17 16:00 02/14/17 03:27 (Duoneb Neb) 1 ampule Q2HR NEB PRN NEB 02/11/17 15:00 Insulin Human Regular 100 units/ Sodium Chloride 100 ml @ 1 mls/hr TITRATE IV 02/11/17 15:00 02/13/17 21:33 Oxacillin Sodium 2 gm/Sodium Chloride 100 ml @ 200 mls/hr Q4H IV 02/13/17 14:00 02/14/17 05:03 Potassium Chloride 100 ml @ 25 mls/hr BOLUS ONCE IV 02/14/17 07:00 02/14/17 10:59 Potassium Chloride/Sodium Chloride 1,000 ml @ 42 mls/hr [id number] IV 02/14/17 07:00 (SoluCORTEF INJ) 50 mg Q8HR IV 02/14/17 14:00 Family History unobtainable Social History unobtainable (Francisco Cobian) Physical Exam Vital Signs Vital Signs Date Time Temp Pulse Resp B/P (MAP) Pulse Ox O2 Delivery O2 Flow Rate FiO2 02/14/17 06:00 93 02/14/17 05:00 108/62 (77) 02/14/17 04:00 96.8 96 18 99/57 (71) 98 02/14/17 04:00 98 02/14/17 02:00 102 02/14/17 00:00 96.9 94 24 134/73 (93) 95 02/14/17 00:00 103 02/13/17 22:00 103 02/13/17 21:04 100 Nasal Cannula 3.00 02/13/17 20:00 98 02/13/17 20:00 97.5 98 20 147/72 (97) 92 02/13/17 18:00 105 02/13/17 16:00 97.7 109 20 127/76 (93) 95 02/13/17 16:00 109 02/13/17 14:00 98 02/13/17 12:00 104 02/13/17 12:00 97.6 104 22 137/75 (95) 97 02/13/17 10:00 101 Physical Exam GENERAL: Well-nourished, well-developed patient in no apparent distress. NECK: No JVD. No carotid bruit. CARDIOVASCULAR: Regular rate and rhythm. S1/S2 no murmur, rub, or gallop. RESPIRATORY: No accessory muscle use. Clear to auscultation. Breath sounds equal bilaterally. GASTROINTESTINAL: Abdomen soft, non-tender, nondistended. MUSCULOSKELETAL: Extremities without clubbing, cyanosis, or edema. Laboratory Laboratory Tests Test 02/13/17 10:00 02/13/17 16:38 02/14/17 03:45 Activated Partial Thromboplast Time 71.3 64.1 71.4 White Blood Count 12.8 Red Blood Count 3.12 Hemoglobin 8.2 Hematocrit 25.9 Mean Corpuscular Volume 83.2 Mean Corpuscular Hemoglobin 26.3 Mean Corpuscular Hemoglobin Concent 31.6 Red Cell Distribution Width 18.6 Platelet Count 133 Mean Platelet Volume 8.7 CBC Comment AUTO DIFF Differential Total Cells Counted 100 Neutrophils % (Manual) 85 Band Neutrophils % 11 Lymphocytes % 3 Monocytes % 1 Neutrophils # (Manual) 12.3 Differential Comment FINAL DIFF MANUAL Toxic Vacuolation PRESENT Platelet Estimate LOW Platelet Morphology Comment NORMAL Helmet Cells OCC Acanthocytes OCC Keratocytes OCC Blood Urea Nitrogen 38 Creatinine 2.07 Random Glucose 174 Total Protein 5.0 Albumin 1.3 Calcium Level 7.0 Magnesium Level 1.9 Alkaline Phosphatase 81 Aspartate Amino Transf (AST/SGOT) 16 Alanine Aminotransferase (ALT/SGPT) 17 Total Bilirubin 0.3 Sodium Level 150 Potassium Level 3.0 Chloride Level 117 Carbon Dioxide Level 24.5 Anion Gap 9 Estimat Glomerular Filtration Rate 33 Protein Corrected Calcium 8.1 Date/Time Source Procedure Growth Status 02/14/17 03:45 Blood Peripheral Aerobic Blood Culture Pending Received 02/14/17 03:45 Blood Peripheral Anaerobic Blood Culture Pending Received 02/01/17 09:55 Cerebral Spinal Fluid Lumbar Puncture Fungal Smear - Final NO FUNGAL ELEMENTS SEEN. Resulted 02/01/17 09:55 Cerebral Spinal Fluid Lumbar Puncture Fungal Culture - Preliminary NO GROWTH IN 1 WEEK Resulted 02/11/17 02:30 Sputum Endotracheal Gram Stain - Final Complete 02/11/17 02:30 Sputum Culture - Final Staphylococcus Aureus Complete 02/11/17 12:20 Urine Catheterized Urine Urine Culture - Final NO GROWTH IN 48 HOURS. Complete 02/11/17 09:10 Abscess Arm Acid Fast Stain - Final NO ACID FAST BACILLI SEEN Resulted 02/11/17 09:10 Abscess Arm Mycobacterial Culture Pending Resulted (Francisco Cobian) Result Diagram: 02/14/1734402/14/17344 Assessment and Plan Problem List: (1) Cardiomyopathy ICD Codes: I42.9 - Cardiomyopathy, unspecified Assessment and Plan Cardiomyopathy of uncertain etiology. Start medical management for now and when he obtains meaningful recovery we will consider Lexiscan SPECT vs coronary angiogram for further diagnostics. Agree on starting DON-I and/or BB as tolerated (Francisco Cobian) Assessment and Plan complicated presentation cardiomyopathy, unclear etiology. CHF, acute on chronic systolic will need ischemic workup, lexiscan vs [facility] once clinically improved. cont med mgt (Duy Gan MD) Francisco Cobian Feb 14, 2017 08:49 Duy Gan MD Feb 14, 2017 08:54
[2017-02-14] MEDS: SODIUM CHLORIDE 0.9% FLUSH 10 ML FLUSH IV FLUSH SCH ×2 (09:00→20:50)
[2017-02-14] MEDS: DOCUSATE SODIUM 50 MG/SENNA 8.6 MG TAB PO SCH ×2 (09:00→20:50)
--- NOTE | 2017-02-14 10:05 | HHI.IDPN ---
Subjective Subjective Remarks Patient is a 62-year-old male, admitted to the hospital for evaluation of pain in his right wrist. He gave a history of falling about a week ago and apparently had immediate pain in the right wrist. He did not seek any medical attention initially because reportedly he was very busy. He eventually presented, and he was found to have a distal ulnar fracture on plain films. He also had some redness and swelling. Orthopedics saw the patient, and was being treated conservatively with the splint. During this hospitalization also he started complaining of generalized weakness but more so in his lower extremity than his upper extremity. He had swelling in both lower extremity which revealed evidence of DVT in the posterior tibial veins. Neurology had seen the patient and he underwent lumbar puncture which apparently was traumatic. Patient was therefore not given anticoagulation because of the traumatic LP, and he underwent placement of an IVC filter on January 25. Patient had another lumbar puncture on February 01. He was felt to have transverse myelitis, and he was given high-dose IV Solu-Medrol from January 27 to February 02. There was apparently some improvement in his weakness. The imaging studies done for his weakness showed some spinal stenosis, and neurosurgery was consult that and recommended that there was no surgical intervention to be done. Patient has been stabilizing, but last night apparently deteriorated, and he ended up getting intubated, and had significant hypotension requiring pressors. There was also an ultrasound done of his left upper extremity which showed DVT, and there was evidence of superior 2 thrombophlebitis. Vascular surgery was consult to it and he had IND on his left upper extremity. Patient has had some fevers since yesterday. 2 blood cultures were done yesterday and they're now reported as growing gram-positive cocci in [place] in clusters. He is currently sedated and intubated. He is on Levophed and vasopressin. A central line was placed as well as a femoral a line. He apparently had an IV in his left upper extremity and that was removed yesterday. Patient also has history of chronic kidney disease, and nephrology evaluated the patient. He was just being monitored for his renal insufficiency. Infectious disease consultation has been requested to evaluate the patient. Notes reviewed D/W RN Temps ok Off pressors Stable post extubation On precedex Sister at bedside New BC 02/12 (+) Echo no vegetation BC x 2 with MSSA C/S sputum MSSA LUE C/S MSSA WBC improving Creatinine better Antibiotics Oxacillin Lines LIJ TLC Past Medical History Gouty arthritis Chronic kidney disease Hx multiple kidney stones Hypertension GERD Diabetes Past Surgical History Rhinoplasty Kidney stone removal with cystoscopy and ureteral stent Allergies: Coded Allergies: levofloxacin (Verified Allergy, Severe, 01/22/17) Objective . Vital Signs Date Time Temp Pulse Resp B/P (MAP) Pulse Ox O2 Delivery O2 Flow Rate FiO2 02/14/17 06:00 93 02/14/17 05:00 108/62 (77) 02/14/17 04:00 96.8 96 18 99/57 (71) 98 02/14/17 04:00 98 02/14/17 02:00 102 02/14/17 00:00 96.9 94 24 134/73 (93) 95 02/14/17 00:00 103 02/13/17 22:00 103 02/13/17 21:04 100 Nasal Cannula 3.00 02/13/17 20:00 98 02/13/17 20:00 97.5 98 20 147/72 (97) 92 02/13/17 18:00 105 02/13/17 16:00 97.7 109 20 127/76 (93) 95 02/13/17 16:00 109 02/13/17 14:00 98 02/13/17 12:00 104 02/13/17 12:00 97.6 104 22 137/75 (95) 97 . Laboratory Tests Test 02/13/17 04:00 02/14/17 03:45 White Blood Count 16.0 TH/MM3 12.8 TH/MM3 Red Blood Count 2.75 MIL/MM3 3.12 MIL/MM3 Hemoglobin 7.4 GM/DL 8.2 GM/DL Hematocrit 22.8 % 25.9 % Mean Corpuscular Volume 83.1 FL 83.2 FL Mean Corpuscular Hemoglobin 26.9 PG 26.3 PG Mean Corpuscular Hemoglobin Concent 32.4 % 31.6 % Red Cell Distribution Width 18.5 % 18.6 % Platelet Count 96 TH/MM3 133 TH/MM3 Mean Platelet Volume 9.5 FL 8.7 FL Neutrophils (%) (Auto) 94.9 % Lymphocytes (%) (Auto) 2.4 % Monocytes (%) (Auto) 2.5 % Eosinophils (%) (Auto) 0.1 % Basophils (%) (Auto) 0.1 % Neutrophils # (Auto) 15.2 TH/MM3 Lymphocytes # (Auto) 0.4 TH/MM3 Monocytes # (Auto) 0.4 TH/MM3 Eosinophils # (Auto) 0.0 TH/MM3 Basophils # (Auto) 0.0 TH/MM3 CBC Comment AUTO DIFF AUTO DIFF Differential Comment AUTO DIFF CONFIRMED FINAL DIFF MANUAL Platelet Estimate LOW LOW Platelet Morphology Comment NORMAL NORMAL Differential Total Cells Counted 100 Neutrophils % (Manual) 85 % Band Neutrophils % 11 % Lymphocytes % 3 % Monocytes % 1 % Neutrophils # (Manual) 12.3 TH/MM3 Toxic Vacuolation PRESENT Helmet Cells OCC Acanthocytes OCC Keratocytes OCC Laboratory Tests Test 02/13/17 04:00 02/14/17 03:45 Blood Urea Nitrogen 43 MG/DL 38 MG/DL Creatinine 2.36 MG/DL 2.07 MG/DL Random Glucose 156 MG/DL 174 MG/DL Total Protein 4.5 GM/DL 5.0 GM/DL Calcium Level 6.7 MG/DL 7.0 MG/DL Sodium Level 141 MEQ/L 150 MEQ/L Potassium Level 3.8 MEQ/L 3.0 MEQ/L Chloride Level 109 MEQ/L 117 MEQ/L Carbon Dioxide Level 23.7 MEQ/L 24.5 MEQ/L Anion Gap 8 MEQ/L 9 MEQ/L Estimat Glomerular Filtration Rate 28 ML/MIN 33 ML/MIN Protein Corrected Calcium 8.1 MG/DL 8.1 MG/DL Albumin 1.3 GM/DL Magnesium Level 1.9 MG/DL Alkaline Phosphatase 81 U/L Aspartate Amino Transf (AST/SGOT) 16 U/L Alanine Aminotransferase (ALT/SGPT) 17 U/L Total Bilirubin 0.3 MG/DL Microbiology Date/Time Source Procedure Growth Status 02/14/17 03:45 Blood Peripheral Aerobic Blood Culture Pending Received 02/14/17 03:45 Blood Peripheral Anaerobic Blood Culture Pending Received 02/13/17 13:06 Blood Peripheral Aerobic Blood Culture Pending Received 02/13/17 13:06 Blood Peripheral Anaerobic Blood Culture Pending Received 02/12/17 05:30 Blood Peripheral Aerobic Blood Culture - Final Staphylococcus Aureus Resulted 02/12/17 05:30 Blood Peripheral Anaerobic Blood Culture - Preliminary NO GROWTH IN 1 DAY Resulted 02/12/17 05:25 Blood Peripheral Aerobic Blood Culture - Preliminary Gram Positive Cocci Resulted 02/12/17 05:25 Blood Peripheral Anaerobic Blood Culture - Preliminary NO GROWTH IN 1 DAY Resulted 02/11/17 12:20 Urine Catheterized Urine Urine Culture - Final NO GROWTH IN 48 HOURS. Complete Imaging Last Impressions Chest X-Ray 02/12/17 0600 Signed Impressions: Service Date/Time: Sunday, February 12, 2017 03:32 - CONCLUSION: 1. Support apparatus in good position. Relatively stable basilar airspace disease and pleural effusions. Trace Holloway MD Upper Extremity Ultrasound 02/10/17 0000 Signed Impressions: Service Date/Time: Friday, February 10, 2017 18:46 - CONCLUSION: Occlusive thrombus in the cephalic and basilic veins. Benjamin Person MD Lung Scan-V Nuclear Medicine 02/10/17 0000 Signed Impressions: Service Date/Time: Friday, February 10, 2017 22:17 - CONCLUSION: Low probability pulmonary embolism. Candido Patton MD Head CT 02/10/17 0000 Signed Impressions: Service Date/Time: Friday, February 10, 2017 23:51 - CONCLUSION: Negative noncontrast CT brain. Candido Patton MD Chest CT 02/10/17 0000 Signed Impressions: Service Date/Time: Friday, February 10, 2017 23:56 - CONCLUSION: Left lower lobe collapse with consolidation. Patchy infiltrates the medial right lower lung. Candido Patton MD Abdomen/Pelvis CT 02/10/17 0000 Signed Impressions: Service Date/Time: Friday, February 10, 2017 23:59 - CONCLUSION: 1. Nonobstructing 12 mm calcified stone lower pole right kidney. 2. Atrophic left kidney with significant cortical thinning. 3. Bilateral fat-containing inguinal hernias, large on the right, and moderate on the left. 4. Consolidative collapse of the left lower lobe. Candido Patton MD Abdomen X-Ray 02/10/17 0000 Signed Impressions: Service Date/Time: Friday, February 10, 2017 08:14 - CONCLUSION: No acute abdominal abnormality is identified. Angelo Allen MD Wrist X-Ray 02/06/17 0000 Signed Impressions: Service Date/Time: Monday, February 06, 2017 12:50 - CONCLUSION: Minimally displaced distal radius and ulnar fractures. Armando Dodd MD Lumbar Puncture Fluoroscopy 02/01/17 0000 Signed Impressions: Service Date/Time: January 09:35 - CONCLUSION: Uncomplicated fluoroscopically guided lumbar puncture. CSF was clear. Nabeel Peralta MD Head Magnetic Resonance Angiography 01/27/17 Signed Impressions: Service Date/Time: Friday, January 27, 2017 10:33 - CONCLUSION: No intracranial vascular abnormality is identified. There is no aneurysm visualized. Angelo Allen MD IVC Filter Placement X-Ray 01/25/17 Signed Impressions: Service Date/Time: January 10:29 - CONCLUSION: Uncomplicated inferior vena cava filter placement as above. Yung Fowler MD Thoracic Spine MRI 01/24/17 Signed Impressions: Service Date/Time: Tuesday, January 24, 2017 22:29 - CONCLUSION: 1. Mild degenerative spondylosis most prominently at T11-L1 with slight effacement of the anterior thecal sac and left lateral recess. No significant neural foraminal stenosis. 2. No acute fracture. Juan Bhakta MD Renal Ultrasound 01/23/17 Signed Impressions: Service Date/Time: Monday, January 23, 2017 08:53 - CONCLUSION: 1. Evidence of chronic parenchymal disease of both kidneys. No obstructive uropathy or other acute abnormality demonstrated. 2. Trace ascites, nonspecific. Angelo Garrido MD Lumbar Spine MRI 01/23/17 Signed Impressions: Service Date/Time: Monday, January 23, 2017 17:01 - CONCLUSION: 1. At L4-5 is a broad-based disc protrusion with severe central canal and lateral recess stenosis and flattening of the exiting right L4 nerve root. 2. L5-S1 there is a disc protrusion and moderate stenosis with flattening of the exiting L5 nerve roots bilaterally. 3. At L3-4 there is a moderate to severe central stenosis and lateral recess stenosis with mild foraminal stenosis. 4. No acute fracture or spondylolisthesis. Trace Holloway MD Lower Extremity Ultrasound 01/23/17 Signed Impressions: Service Date/Time: Monday, January 23, 2017 09:53 - CONCLUSION: Bilateral focal lower extremity DVT involving the posterior tibial veins. Angelo Garrido MD Cervical Spine MRI 01/23/17 Signed Impressions: Service Date/Time: Monday, January 23, 2017 17:01 - CONCLUSION: 1. Multilevel cervical spine degenerative changes as above. 2. Mild degrees of spinal stenosis at C3/C4-C6/C7. No cord compression or cord signal abnormality. 3. Age indeterminate left paracentral/foraminal disc protrusion at C6/C7. 4. Multilevel foraminal stenosis, most severe on the left at C6/C7. Please see individual levels above. 5. No fracture or subluxation of the cervical spine. Angelo Garrido MD Brain MRI 01/23/17 0000 Signed Impressions: Service Date/Time: Monday, January 23, 2017 17:01 - CONCLUSION: 1. No acute stroke or other acute intracranial abnormality demonstrated. 2. Moderate severity chronic white matter changes, nonspecific but most likely related to chronic small vessel disease. 3. Few scattered tiny lacunar infarcts of the brainstem. 4. Given the findings are not entirely specific, clinical evaluation for possible multiple sclerosis recommended. Angelo Garrido MD Knee X-Ray 01/22/172053 Signed Impressions: Service Date/Time: Sunday, January 22, 2017 21:17 - CONCLUSION: 1. Evidence of moderate to large joint effusion. 2. No acute fracture or malalignment. 3. Mild 3 compartment osteoarthritic change. Benjamin Person MD Hip and Pelvis X-Ray [id number]/22/172053 Signed Impressions: Service Date/Time: Sunday, January 22, 2017 21:10 - CONCLUSION: 1. Mild to moderate degenerative change of both hips with no acute fracture or malalignment. There is flattening and remodeling of the right humeral head. Benjamin Person MD Physical Exam GENERAL: lethargic, not in distress SKIN: Cool and dry. No generalized rash, no ecchymoses and no evidence of embolic lesions. HEAD: Atraumatic. Normocephalic. No temporal wasting, or tenderness. EYES: [place] conjunctiva. No petechia or hemorrhage. Pupils equal, round and reactive to light. No scleral icterus. No injection or drainage. EARS, NOSE AND THROAT: Nose without bleeding or purulent nasal discharge. He is orally intubated NECK: Trachea midline. Supple and no meningeal signs CARDIOVASCULAR: Regular rate and rhythm. Soft heart sounds. No murmurs, rubs or gallops heard RESPIRATORY: Coarse BS bilaterally ABDOMEN: Soft, nondistended, bowel sounds present and normoactive, no reaction to palpation. No guarding. EXTREMITIES: No clubbing, cyanosis. Both hands less edematous. Has evidence of multiple gouty tophi in both hands and feet. Cool extremities but no mottling. LUE - there is a 2.5 cm incision with packing, has dry intact dressing in place, less induration NEUROLOGICAL: Awake, focusing PSYCHIATRIC: SOme agitation LINE: Line with no evidence of infection : Sloan in place, urine looks clear Assessment & Plan Remarks IMPRESSION MSSA sepsis, with shock, likely Staph, due to suppurative thrombophlebitis LUE, S/P I and D and excision of portion of cephalic vein - off pressors Respiratory failure, CXR now with infiltrates - sputum with MSSA - extubated Recent Rx 7 days high dose solumedrol for transverse myelitis Wu LE DVT has IVC filter placed 01/25 - ?hypercoagulable state Chronic kidney disease Known DM, HTN Gouty tophi both hands and feet RECOMMENDATION Continue IV Oxacillin Repeat BC to document clearing Follow C/S and adjust Abx Monitor progress D/W RN Spoke with sister VeneciajenniferIrene MD Feb 14, 2017 10:05
[2017-02-14] MEDS: MORPHINE SULFATE 4 MG/ML INJ IV PUSH PRN (10:06)
--- NOTE | 2017-02-14 12:28 | HHI.PR ---
Subjective Remarks Discussed overnight events with RN Patient still confused but more awake as per RN, also needed to be on precedex last night due to agitation patient denies cp/sob sodium note to be trending up Objective Vitals Vital Signs Date Time Temp Pulse Resp B/P (MAP) Pulse Ox O2 Delivery O2 Flow Rate FiO2 02/14/17 10:39 96 Nasal Cannula 2.50 02/14/17 10:00 94 02/14/17 08:00 90 02/14/17 08:00 96.8 90 131/78 (95) 98 02/14/17 06:00 93 02/14/17 05:00 108/62 (77) 02/14/17 04:00 96.8 96 18 99/57 (71) 98 02/14/17 04:00 98 02/14/17 02:00 102 02/14/17 00:00 96.9 94 24 134/73 (93) 95 02/14/17 00:00 103 02/13/17 22:00 103 02/13/17 21:04 100 Nasal Cannula 3.00 02/13/17 20:00 98 02/13/17 20:00 97.5 98 20 147/72 (97) 92 02/13/17 18:00 105 02/13/17 16:00 97.7 109 20 127/76 (93) 95 02/13/17 16:00 109 02/13/17 14:00 98 I/O 02/13/17 02/13/17 02/13/17 02/14/17 02/14/17 02/14/17 07:00 15:00 23:00 07:00 15:00 23:00 Intake Total 1200 ml 100 ml 1136 ml 897.2 ml 200 ml Output Total 1200 ml 2000 ml 1350 ml Balance 0 ml 100 ml -864 ml -452.8 ml 200 ml IV Total 1200 ml 100 ml 1136 ml 897.2 ml 200 ml Output Urine Total 1200 ml 2000 ml 1350 ml Gastric Drainage Total 0 ml 0 ml # Bowel Movements 0 0 Result Diagram: 02/14/1734402/14/17344 Objective Remarks AAOx1 NAD on soft restraints. Clear lungs BL Abdomen soft, NT, ND no edema in lower extremities Procedures IVC filter placement 01/25/2017 LP 01/26/2017 Medications and IVs Current Medications Medications (Trade) Dose Ordered Sig/Rosalia Route Start Time Stop Time Status Last Admin (NS Flush) 2 ml UNSCH PRN IV FLUSH 01/23/17 00:30 02/01/17 05:07 (NS Flush) 2 ml BID IV FLUSH 01/23/17 09:00 02/13/17 21:16 (Tylenol) 650 mg Q4H PRN PO 01/23/17 00:30 02/09/17 20:49 (Zofran Inj) 4 mg Q6H PRN IVP 01/23/17 00:30 02/10/17 06:45 ([place] 5-325 Mg) 1 tab Q4H PRN PO 01/23/17 00:30 02/14/17 12:42 ([place] 7.5-325 Mg) 1 tab Q4H PRN PO 01/23/17 00:30 02/09/17 18:40 (Narcan Inj) 0.4 mg UNSCH PRN IV 01/23/17 00:30 ([place]-Colace) 1 tab BID PO 01/23/17 09:00 02/13/17 08:00 (Milk Of Magnestephania Liq) 30 ml Q12H PRN PO 01/23/17 00:30 02/09/17 12:30 (Senokot) 17.2 mg Q12H PRN PO 01/23/17 00:30 02/09/17 12:30 (Dulcolax Supp) 10 mg DAILY PRN RECTAL 01/23/17 00:30 (Tenormin) 25 mg DAILY PO 01/24/17 13:00 Future Hold 02/08/17 08:08 (Lipitor) 10 mg HS PO 01/24/17 21:00 02/12/17 20:42 (Catapres) 0.1 mg Q6H PRN PO 01/24/17 18:00 01/28/17 12:34 (Norvasc) 5 mg DAILY PO 01/28/17 09:00 Future Hold 02/08/17 08:08 (Morphine Inj) 2 mg Q3H PRN IV PUSH 02/10/17 06:15 02/14/17 10:06 (Brethine Inj) 1 mg UNSCH PRN SQ 02/10/17 20:30 (Pepcid Inj) 20 mg HS IV PUSH 02/10/17 22:45 02/13/17 21:16 (D50w (Vial) Inj) 50 ml UNSCH PRN IV PUSH 02/11/17 05:45 (Glucagon Inj) 1 mg UNSCH PRN OTHER 02/11/17 05:45 Heparin Sodium/ Dextrose 250 ml @ 17.28 mls/ hr TITRATE PRN IV 02/11/17 07:00 02/13/17 23:28 (Duoneb Neb) 1 ampule Q6HR NEB NEB 02/11/17 16:00 02/14/17 10:37 (Duoneb Neb) 1 ampule Q2HR NEB PRN NEB 02/11/17 15:00 Insulin Human Regular 100 units/ Sodium Chloride 100 ml @ 1 mls/hr TITRATE IV 02/11/17 15:00 02/13/17 21:33 Oxacillin Sodium 2 gm/Sodium Chloride 100 ml @ 200 mls/hr Q4H IV 02/13/17 14:00 02/14/17 14:23 (SoluCORTEF INJ) 50 mg Q8HR IV 02/14/17 14:00 Potassium Chloride 20 meq/ Sodium Chloride 38.5 meq/Sterile Water 1,019.625 ml @ 84 mls/hr Q12H9M IV 02/14/17 14:00 A/P Problem List: (1) Distal end of ulna fracture, closed ICD Code: S52.609A - Unspecified fracture of lower end of unspecified ulna, initial encounter for closed fracture Status: Acute (2) Diabetes mellitus ICD Code: E11.9 - Type 2 diabetes mellitus without complications Status: Chronic Assessment and Plan Metabolic encephalopathy 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 Treated with Solu- Medrol 250 mg IV every 6 hours from 01/27 - 02/02. Had LP 01/26 and 02/01. CSF culture negative 01/26, 02/01 Oligoclonal bands negative. CSF/serum IgG index is not elevated. VDRL nonreactive. Cryptococcal antigen negative. Brain MRI 01/23 no acute stroke. Few scattered lacunar infarcts of the brainstem. Moderate chronic white matter changes. MRI cervical/thoracic spine- mild spinal stenosis 3C3/C4 to C6/C7. No cord compression. RPR negative Neurology has been following, Dr. Crenshaw. Repeat CT brain 02/10 - negative Continue PT/OT Acute hypoxemic respiratory failure Probable healthcare associated pneumonia Intubated emergently 02/10. ACV TV 600 PEEP 8 FIO2 45%. Tolerating SBT, plan to extubate Diagnostic and therapeutic bronchoscopy performed for left lower lobe. White mucous plugs removed and BAL sent. VQ scan 02/[address] low [address] PE. CT chest02/10 - left lower lobe collapse and consolidation. Right lower lobe infiltrate. Endotracheal tube did get dislodged and was advanced by Dr. Hogan under direct laryngoscopy around 5:30 02/11. DuoNeb every 6 hours scheduled and when necessary Sputum culture MSSA Septic shock Cardiomyopathy Hyperlipidemia Hypertension Septic shock secondary to suppurative thrombophlebitis of the left upper extremity, status post I&D and excision of portion of cephalic vein. Septic shock resolved. Status post IV fluid administration. Patient also on IV pressors and hydrocortisone and oh milligrams IV every 8 hours for relative adrenal insufficiency. On atorvastatin 10 mg by mouth daily at bedtime. Neurologic consulted once clinically improved. Sputum with MSSA Antibiotic treatment as per ID - currently on oxacillin. Bilateral lower extremity DVT Status post IVC filter Septic thrombophlebitis with occlusive thrombus in mid cephalic and basilic vein. Initially treated with heparin for DVT, however this was placed on hold for lumbar puncture with suspected traumatic tap. IV heparin 02/11/17. Status post IVC filter which was placed on 01/25/17. As per records the patient has not been on DVT prophylaxis. Last LP on 02/01. The case was discussed with Dr. Crenshaw from neurology who agreed that it was appropriate to anticoagulate. Ultrasound on left upper extremity on with occlusive thrombus in the mid cephalic vein, basilic vein. Diabetes mellitus with hyperglycemia Continue insulin drip. Right distal ulna fracture Patient seen by orthopedic surgery who recommended nonoperative management. Right wrist splint in place. BREEZY Hypocalcemia Hypernatremia Hypokalemia Replace with IV calcium chloride. Place on one fourth normal saline with potassium chloride and recheck BMP at 1600 hrs. Potassium 3.0. Replace orally and continue to monitor BMP. Breezy secondary to sepsis and septic shock. Creatinine trending down, continue to monitor BMP, avoid nephrotoxins, measure strict I's and O's. GI prophylaxis with Famotidine On heparin drip for treatment of DVT Discharge Planning Continue to monitor in intensive care unit. Problem Qualifiers (1) Diabetes mellitus: Abdelrahman Alcantara MD Feb 14, 2017 12:28
[2017-02-14] MEDS ORDERED: POTASSIUM CHLORIDE 10 MEQ CONTROLLED RELEASE TAB PO ONE (12:30)
[2017-02-14] MEDS: ACETAMINOPHEN/HYDROcodone 325 MG/5 MG TAB PO PRN (12:42)
[2017-02-14] MEDS ORDERED: CALCIUM CHLORIDE INJ 2 GM in SODIUM CHLORIDE 0.9% INJ 100 ML IV ONE (13:00)
[2017-02-14] MEDS ORDERED: POTASSIUM CHLORIDE INJ 20 MEQ, SODIUM CHLORIDE 23.4% INJ 38.5 MEQ in WATER STERILE FOR ... IV SCH (14:00)
--- NOTE | 2017-02-14 14:37 | HHI.NPPN ---
Subjective History of Present Illness 61-year-old with history of urinary stone Additional Remarks Patient is extubated Review of Systems General Constitutional: Fatigue Objective Data Data 02/14/17 02/15/17 19:00 07:00 Intake Total 200 ml Balance 200 ml IV Total 200 ml Vital Signs Date Time Temp Pulse Resp B/P (MAP) Pulse Ox O2 Delivery O2 Flow Rate FiO2 02/14/17 10:39 96 Nasal Cannula 2.50 02/14/17 10:00 94 02/14/17 08:00 90 02/14/17 08:00 96.8 90 131/78 (95) 98 02/14/17 06:00 93 02/14/17 05:00 108/62 (77) 02/14/17 04:00 96.8 96 18 99/57 (71) 98 02/14/17 04:00 98 02/14/17 02:00 102 02/14/17 00:00 96.9 94 24 134/73 (93) 95 02/14/17 00:00 103 02/13/17 22:00 103 02/13/17 21:04 100 Nasal Cannula 3.00 02/13/17 20:00 98 02/13/17 20:00 97.5 98 20 147/72 (97) 92 02/13/17 18:00 105 02/13/17 16:00 97.7 109 20 127/76 (93) 95 02/13/17 16:00 109 -: 02/14/17 0345 02/14/17 0345 Microbiology 02/14/17 Aerobic Blood Culture, Received Pending 02/14/17 Anaerobic Blood Culture, Received Pending Physical Exam Neck Neck Exam: Neck Supple Pulmonary Resp Exam: Clear Bilaterally, Breath Sounds Equal Cardiology CV Exam: Regular, Normal Sinus Rhythm Gastrointestinal/Abdomen GI Exam: Soft, Non-Tender, Bowel Sounds Present Extremeties Extremities Exam: Trace Edema Neurologic Neuro Exam: Sedated Assessment/Plan Problem List: (1) Acute renal failure ICD Codes: N17.9 - Acute kidney failure, unspecified Status: Acute Plan: Cr declined 2.07 Na 150 K low need free water K replaced ARF resolving Patient develop Hypotension,sepsis staph aureus respiratory failure and increase WBC. Has aspiration pneumonia. developed sepsis with ARF again creatinine declined slightly post hydration NS 50 cc/hr, cr declined Continue IVF and antibiotics. on Vanco follow levels Follow the urine out put and BMP. (2) CKD (chronic kidney disease) stage 3, GFR 30-59 ml/min ICD Codes: N18.3 - Chronic kidney disease, stage 3 (moderate) Status: Chronic Plan: Ultrasound revealed chronic kidney disease there is no kidney stones (3) Diabetes ICD Codes: E11.9 - Type 2 diabetes mellitus without complications Plan: Continue to monitor (4) Distal end of ulna fracture, closed ICD Codes: S52.609A - Unspecified fracture of lower end of unspecified ulna, initial encounter for closed fracture Status: Acute Plan: Orthopedic is following Problem Qualifiers (1) Acute renal failure: Qualified Codes: N17.9 - Acute kidney failure, unspecified Laura Liao MD Feb 14, 2017 14:37
[2017-02-14] MEDS ORDERED: HALOPERIDOL LACTATE 5 MG/ML AMP IV ONE (15:00)
[2017-02-14] MEDS: RESP: ALBUTEROL 2.5 MG/IPRATROPIUM 0.5 MG NEB (PRN) NEB (16:24)
[2017-02-14] MEDS: HYDROCORTISONE SOD SUCCINATE 250 MG VIAL IV SCH ×2 (16:27→20:49)
[2017-02-14] MEDS ORDERED: HALOPERIDOL LACTATE 5 MG/ML AMP IV PRN (17:30)
[2017-02-14] MEDS: HEPARIN-D5W 25,000 U/250 ML 250 ML IV PRN (17:55)
[2017-02-14] MEDS ORDERED: POTASSIUM CHLORIDE INJ 40 MEQ in SODIUM CHLOR 0.45% 1000 ML INJ 1,000 ML IV SCH (18:00)
[2017-02-14] MEDS: FAMOTIDINE 20 MG/2 ML VIAL IV PUSH SCH (20:49)
[2017-02-14] MEDS: ACETAMINOPHEN 325 MG TAB PO PRN (20:50)
[2017-02-14] MEDS: ATORVASTATIN 10 MG TAB PO SCH (20:50)
[2017-02-14 21:58] LABS: BICARBONATE 23.2 MEQ/L (21.0-32.0); POTASSIUM 3.1 MEQ/L (3.5-5.1)
[2017-02-15] VITALS (14 sets, daily range): BP systolic 144–170; BP diastolic 75–94; PULSE 88–105; RESP 17–25; TEMP 97.5–98.1; O2SAT 93–99
[2017-02-15] MEDS: OXACILLIN INJ 2 GM in SODIUM CHLORIDE 0.9% INJ 100 ML IV SCH ×6 (02:10→22:09)
[2017-02-15] MEDS: RESP: ALBUTEROL 2.5 MG/IPRATROPIUM 0.5 MG NEB (SCH) NEB ×4 (03:38→20:47)
[2017-02-15 05:29] LABS: AUTOMATED NEUTROPHIL # 9.1 TH/MM3 (1.8-7.7); BASOPHIL % 0.4 % (0.0-2.0); HEMATOCRIT 27.3 % (39.0-51.0); LYMPH % 5.4 % (9.0-44.0); LYMPHOCYTE # 0.6 TH/MM3 (1.0-4.8); MEAN CELL VOLUME 83.1 FL (80.0-100.0); MEAN CORPUSCULAR HEMOGLOBIN 26.8 PG (27.0-34.0); MEAN CORPUSCULAR HGB CONC 32.2 % (32.0-36.0); MONO % 5.6 % (0.0-8.0); NEUT % 88.6 % (16.0-70.0); PLATELET COUNT 175 TH/MM3 (150-450); RED BLOOD COUNT 3.29 MIL/MM3 (4.50-5.90); RED CELL DISTRIBUTION WIDTH 18.3 % (11.6-17.2); WHITE BLOOD COUNT 10.3 TH/MM3 (4.0-11.0)
[2017-02-15 05:32] LABS: APTT (PATIENT) 63.3 SEC (24.3-30.1)
[2017-02-15 05:33] LABS: HEMO FLAGS AUTO DIFF
[2017-02-15] MEDS: HYDROCORTISONE SOD SUCCINATE 250 MG VIAL IV SCH ×3 (06:00→22:09)
[2017-02-15 06:02] LABS: ALT (GPT) 16 U/L (12-78); ANION GAP 8 MEQ/L (5-15); AST (GOT) 26 U/L (15-37); BICARBONATE 23.6 MEQ/L (21.0-32.0); BLOOD UREA NITROGEN 34 MG/DL (7-18); CHLORIDE 119 MEQ/L (98-107); GLOMERULAR FILTRATION RATE 37 ML/MIN (>89); POTASSIUM 3.1 MEQ/L (3.5-5.1); SODIUM (NA) 151 MEQ/L (136-145)
[2017-02-15 06:04] LABS: ALKALINE PHOSPHATASE 97 U/L (45-117); TOTAL BILIRUBIN ADULT 0.2 MG/DL (0.2-1.0)
--- NOTE | 2017-02-15 06:54 | RADRPT ---
EXAM DATE/TIME: 02/15/2017 06:10 [facility] COMPARISON: CHEST SINGLE AP, February 14, 2017, 4:08. INDICATIONS : Respiratory distress. MEDICAL HISTORY : Gastroesophageal reflux disease. Arthritis. Renal calculi. Cardiovascular disease. Hypertension. Deep venous thrombosis. Diabetes. SURGICAL HISTORY : Nasal surgery. Stents in kidneys. ENCOUNTER: Subsequent ACUITY: 3 weeks PAIN SCORE: Non-responsive. LOCATION: Bilateral chest FINDINGS: A single view of the chest demonstrates basilar airspace disease and effusion, left greater than righ t. Findings similar to February 14. No new infiltrate. No pneumothorax. CONCLUSION: 1. Stable basilar airspace disease and small effusion, left greater than right. Previous left central line has been removed. Trace Holloway MD on February 15, 2017 at 6:52 Board Certified Radiologist. This report was verified electronically.
[2017-02-15] MEDS: SODIUM CHLORIDE 0.9% FLUSH 10 ML FLUSH IV FLUSH SCH ×2 (08:00→20:39)
[2017-02-15] MEDS: DOCUSATE SODIUM 50 MG/SENNA 8.6 MG TAB PO SCH ×2 (08:23→20:39)
[2017-02-15 09:32] LABS: SCAN/DIFF AUTO DIFF CONFIRMED
[2017-02-15] MEDS: HEPARIN-D5W 25,000 U/250 ML 250 ML IV PRN (10:00)
[2017-02-15] MEDS ORDERED: POTASSIUM CHLORIDE 10 MEQ CONTROLLED RELEASE TAB PO ONE (11:00)
--- NOTE | 2017-02-15 11:10 | PD.CARD.PN ---
Subjective Subjective Remarks no cardiac events Objective Medications Active Medications Albuterol/ Ipratropium (Duoneb Neb) 1 ampule Q6HR NEB NEB Last administered on 02/15/17 08:41; Admin Dose 1 AMPULE; Start 02/14/17 at 22:00 Calcium Chloride 2 gm/Sodium Chloride 120 ml @ 120 mls/hr ONCE ONCE IV Last administered on 02/14/17 15:37; Admin Dose 120 MLS/HR; Start 02/14/17 at 13:00 ; Stop 02/14/17 at 13:59; Status DC Haloperidol Lactate (Haldol Inj) 1 mg Q6H PRN IV; Start 02/14/17 at 17:30 Haloperidol Lactate (Haldol Inj) 1 mg STAT ONCE IV Last administered on 15:03; Admin Dose 1 MG; Start 02/14/17 at 15:00; Stop 02/14/17 at 15:01; Status DC Hydrocortisone Sodium Succinate (SoluCORTEF INJ) 50 mg Q8HR IV Last administered on 02/15/17 06:00; Admin Dose 50 MG; Start 02/14/17 at 14:00 Potassium Chloride 20 meq/ Sodium Chloride 38.5 meq/Sterile Water 1,019.625 ml @ 100 mls/hr [id number] IV; Start 02/15/17 at 11:00 Potassium Chloride 20 meq/ Sodium Chloride 38.5 meq/Sterile Water 1,019.625 ml @ 84 mls/hr Q12H9M IV; Start 02/14/17 at 14:00; Stop 02/14/17 at 17:17; Status DC Potassium Chloride 40 meq/ Sodium Chloride 1,020 ml @ 42 mls/hr Q24H IV Last administered on 02/14/17 18:37; Admin Dose 42 MLS/HR; Start 02/14/17 at 18:00; Stop 02/15/17 at 10:56; Status DC Potassium Chloride (KCl) 30 meq ONCE ONCE PO; Start 02/14/17 at 12:30; Stop at 12:31; Status DC Potassium Chloride (KCl) 30 meq ONCE ONCE PO; Start 02/15/17 at 11:00; Stop at 11:02; Status DC Vital Signs / I&O Vital Signs Date Time Temp Pulse Resp B/P (MAP) Pulse Ox O2 Delivery O2 Flow Rate FiO2 02/15/17 08:43 99 Nasal Cannula 2.00 02/15/17 06:00 103 02/15/17 04:00 97.5 92 25 151/82 (105) 93 02/15/17 04:00 98 02/15/17 02:00 103 02/15/17 00:00 101 02/15/17 00:00 97.5 101 24 169/94 (119) 98 02/14/17 22:00 103 02/14/17 20:00 97.3 107 23 149/81 (103) 96 02/14/17 20:00 100 02/14/17 19:44 98 Nasal Cannula 2.00 02/14/17 18:00 100 02/14/17 16:00 104 02/14/17 16:00 97.2 104 145/83 (103) 97 02/14/17 14:00 104 02/14/17 12:00 96.4 98 127/69 (88) 96 02/14/17 12:00 98 I/O 02/14/17 02/14/17 02/14/17 02/15/17 02/15/17 02/15/17 06:59 14:59 22:59 06:59 14:59 22:59 Intake Total 897.2 ml 300 ml 877 ml 120 ml Output Total 1350 ml 950 ml 920 ml Balance -452.8 ml 300 ml -73 ml -800 ml Intake Oral 120 ml IV Total 897.2 ml 300 ml 877 ml Output Urine Total 1350 ml 950 ml 900 ml Stool Total 0 ml Drainage Total 20 ml # Bowel Movements 0 Physical Exam NECK: No JVD or lymphadenopathy. CARDIOVASCULAR: Regular rate and rhythm without murmurs, gallops, or rubs. RESPIRATORY: Breath sounds equal bilaterally. GASTROINTESTINAL: Abdomen soft Laboratory Laboratory Tests Test 02/14/17 21:06 02/15/17 04:45 Blood Urea Nitrogen 35 MG/DL 34 MG/DL Creatinine 1.92 MG/DL 1.88 MG/DL Random Glucose 163 MG/DL 153 MG/DL Calcium Level 8.2 MG/DL 7.7 MG/DL Sodium Level 150 MEQ/L 151 MEQ/L Potassium Level 3.1 MEQ/L 3.1 MEQ/L Chloride Level 119 MEQ/L 119 MEQ/L Carbon Dioxide Level 23.2 MEQ/L 23.6 MEQ/L Anion Gap 8 MEQ/L 8 MEQ/L Estimat Glomerular Filtration Rate 36 ML/MIN 37 ML/MIN White Blood Count 10.3 TH/MM3 Red Blood Count 3.29 MIL/MM3 Hemoglobin 8.8 GM/DL Hematocrit 27.3 % Mean Corpuscular Volume 83.1 FL Mean Corpuscular Hemoglobin 26.8 PG Mean Corpuscular Hemoglobin Concent 32.2 % Red Cell Distribution Width 18.3 % Platelet Count 175 TH/MM3 Mean Platelet Volume 8.7 FL Neutrophils (%) (Auto) 88.6 % Lymphocytes (%) (Auto) 5.4 % Monocytes (%) (Auto) 5.6 % Eosinophils (%) (Auto) 0.0 % Basophils (%) (Auto) 0.4 % Neutrophils # (Auto) 9.1 TH/MM3 Lymphocytes # (Auto) 0.6 TH/MM3 Monocytes # (Auto) 0.6 TH/MM3 Eosinophils # (Auto) 0.0 TH/MM3 Basophils # (Auto) 0.0 TH/MM3 CBC Comment AUTO DIFF Differential Comment AUTO DIFF CONFIRMED Activated Partial Thromboplast Time 63.3 SEC Total Protein 5.1 GM/DL Albumin 1.5 GM/DL Alkaline Phosphatase 97 U/L Aspartate Amino Transf (AST/SGOT) 26 U/L Alanine Aminotransferase (ALT/SGPT) 16 U/L Total Bilirubin 0.2 MG/DL Random Vancomycin Level 10.4 COMMENT Assessment and Plan Problem List: (1) Cardiomyopathy ICD Codes: I42.9 - Cardiomyopathy, unspecified Assessment and Plan cardiomyopathy, unclear etiology. CHF, acute on chronic systolic will need ischemic workup, lexiscan vs C once clinically improved. cont med mgt call when clinically improved and we will coordinate ischemic workup will sign off available for questions Duy Gan MD Feb 15, 2017 11:10
--- NOTE | 2017-02-15 11:33 | PD.VS.PN ---
Subjective POD #: 4 Procedure(s): I&D left arm abscess with excision of left cephalic vein segment. Subjective/Hospital Course 62/M more responsive this am Pt answering questions and is alert Wound vac to Left arm intact (Namita Solorzano) Objective Vitals/I&O Date Time Temp Pulse Resp B/P (MAP) Pulse Ox O2 Delivery O2 Flow Rate FiO2 02/15/17 08:43 99 Nasal Cannula 2.00 02/15/17 06:00 103 02/15/17 04:00 97.5 92 25 151/82 (105) 93 02/15/17 04:00 98 02/15/17 02:00 103 02/15/17 00:00 101 02/15/17 00:00 97.5 101 24 169/94 (119) 98 02/14/17 22:00 103 02/14/17 20:00 97.3 107 23 149/81 (103) 96 02/14/17 20:00 100 02/14/17 19:44 98 Nasal Cannula 2.00 02/14/17 18:00 100 02/14/17 16:00 104 02/14/17 16:00 97.2 104 145/83 (103) 97 02/14/17 14:00 104 02/14/17 12:00 96.4 98 127/69 (88) 96 02/14/17 12:00 98 02/15/17 02/15/17 02/15/17 07:00 15:00 23:00 Intake Total 120 ml Output Total 920 ml Balance -800 ml Exam: Left radial pulse palpable UE warm with strong lacing presser strength Wound vac placed to Left Upper Arm Laboratory Laboratory Tests Test 02/14/17 21:06 02/15/17 04:45 Blood Urea Nitrogen 35 34 Creatinine 1.92 1.88 Random Glucose 163 153 Calcium Level 8.2 7.7 Sodium Level 150 151 Potassium Level 3.1 3.1 Chloride Level 119 119 Carbon Dioxide Level 23.2 23.6 Anion Gap 8 8 Estimat Glomerular Filtration Rate 36 37 White Blood Count 10.3 Red Blood Count 3.29 Hemoglobin 8.8 Hematocrit 27.3 Mean Corpuscular Volume 83.1 Mean Corpuscular Hemoglobin 26.8 Mean Corpuscular Hemoglobin Concent 32.2 Red Cell Distribution Width 18.3 Platelet Count 175 Mean Platelet Volume 8.7 Neutrophils (%) (Auto) 88.6 Lymphocytes (%) (Auto) 5.4 Monocytes (%) (Auto) 5.6 Eosinophils (%) (Auto) 0.0 Basophils (%) (Auto) 0.4 Neutrophils # (Auto) 9.1 Lymphocytes # (Auto) 0.6 Monocytes # (Auto) 0.6 Eosinophils # (Auto) 0.0 Basophils # (Auto) 0.0 CBC Comment AUTO DIFF Differential Comment AUTO DIFF CONFIRMED Activated Partial Thromboplast Time 63.3 Total Protein 5.1 Albumin 1.5 Alkaline Phosphatase 97 Aspartate Amino Transf (AST/SGOT) 26 Alanine Aminotransferase (ALT/SGPT) 16 Total Bilirubin 0.2 Random Vancomycin Level 10.4 Date/Time Source Procedure Growth Status 02/15/17 04:45 Blood Peripheral Aerobic Blood Culture Pending Received 02/15/17 04:45 Blood Peripheral Anaerobic Blood Culture Pending Received 02/01/17 09:55 Cerebral Spinal Fluid Lumbar Puncture Fungal Smear - Final NO FUNGAL ELEMENTS SEEN. Resulted 02/01/17 09:55 Cerebral Spinal Fluid Lumbar Puncture Fungal Culture - Preliminary NO GROWTH IN 1 WEEK Resulted 02/11/17 02:30 Sputum Endotracheal Gram Stain - Final Complete 02/11/17 02:30 Sputum Culture - Final Staphylococcus Aureus Complete 02/11/17 12:20 Urine Catheterized Urine Urine Culture - Final NO GROWTH IN 48 HOURS. Complete 02/11/17 09:10 Abscess Arm Acid Fast Stain - Final NO ACID FAST BACILLI SEEN Resulted 02/11/17 09:10 Abscess Arm Mycobacterial Culture Pending Resulted (Namita Solorzano) Assessment and Plan Assessment: (1) Thrombophlebitis arm Plan S/P I/d Left arm L UE Wound vac intact Pt more responsive this am Plan Continue wound vac therapy for optimal healing Change wound vac dressing tomorrow Namita [facility] [phone] (Namita Solorzano) Plan Patient with healing left I&D site. Patient extubated and responsive after septic episode. Plan for wound vac change M,W,F with follow up with wound care clinic as an outpatient. (this should be arranged before discharge) Will see in follow up initially in our office next week if discharged. Will follow weekly while in hospital. If any changes please call sooner. Salo Bravo DO, FACS (Salo Bravo DO) Namita Solorzano Feb 15, 2017 11:33 Salo Bravo DO Feb 15, 2017 14:20
--- NOTE | 2017-02-15 11:41 | HHI.PR ---
Subjective Remarks Follow-up sepsis, HCAP, hypernatremia, acute kidney injury, acute hypoxemic respiratory failure, cardiomyopathy, bilateral lower extremity DVT, septic thrombophlebitis electrolyte abnormalities. Discussed overnight events with RN. Patient is much more awake, follows commands and is not agitated. Patient denies any chest pain or shortness of breath Blood pressure noted to be slightly elevated with a systolic blood pressure as high as 169/94 Objective Vitals Vital Signs Date Time Temp Pulse Resp B/P (MAP) Pulse Ox O2 Delivery O2 Flow Rate FiO2 02/15/17 08:43 99 Nasal Cannula 2.00 02/15/17 06:00 103 02/15/17 04:00 97.5 92 25 151/82 (105) 93 02/15/17 04:00 98 02/15/17 02:00 103 02/15/17 00:00 101 02/15/17 00:00 97.5 101 24 169/94 (119) 98 02/14/17 22:00 103 02/14/17 20:00 97.3 107 23 149/81 (103) 96 02/14/17 20:00 100 02/14/17 19:44 98 Nasal Cannula 2.00 02/14/17 18:00 100 02/14/17 16:00 104 02/14/17 16:00 97.2 104 145/83 (103) 97 02/14/17 14:00 104 02/14/17 12:00 96.4 98 127/69 (88) 96 02/14/17 12:00 98 I/O 02/14/17 02/14/17 02/14/17 02/15/17 02/15/17 02/15/17 07:00 15:00 23:00 07:00 15:00 23:00 Intake Total 897.2 ml 300 ml 877 ml 120 ml Output Total 1350 ml 950 ml 920 ml Balance -452.8 ml 300 ml -73 ml -800 ml Intake Oral 120 ml IV Total 897.2 ml 300 ml 877 ml Output Urine Total 1350 ml 950 ml 900 ml Stool Total 0 ml Drainage Total 20 ml # Bowel Movements 0 Result Diagram: 02/15/17 0445 02/15/17444 Imaging Last Impressions Chest X-Ray 02/15/17 06 Signed Impressions: Service Date/Time: Thursday, February 15, 2017 06:10 - CONCLUSION: 1. Stable basilar airspace disease and small effusion, left greater than right. Previous left central line has been removed. Trace Holloway MD Upper Extremity Ultrasound 02/10/17 Signed Impressions: Service Date/Time: Friday, February 10, 2017 18:46 - CONCLUSION: Occlusive thrombus in the cephalic and basilic veins. Benjamin Person MD Lung Scan-V Nuclear Medicine 02/10/17 Signed Impressions: Service Date/Time: Friday, February 10, 2017 22:17 - CONCLUSION: Low probability pulmonary embolism. Candido Patton MD Head CT 02/10/17 Signed Impressions: Service Date/Time: Friday, February 10, 2017 23:51 - CONCLUSION: Negative noncontrast CT brain. Candido aPtton MD Chest CT 02/10/17 Signed Impressions: Service Date/Time: Friday, February 10, 2017 23:56 - CONCLUSION: Left lower lobe collapse with consolidation. Patchy infiltrates the medial right lower lung. Candido Patton MD Abdomen/Pelvis CT 02/10/17 Signed Impressions: Service Date/Time: Friday, February 10, 2017 23:59 - CONCLUSION: 1. Nonobstructing 12 mm calcified stone lower pole right kidney. 2. Atrophic left kidney with significant cortical thinning. 3. Bilateral fat-containing inguinal hernias, large on the right, and moderate on the left. 4. Consolidative collapse of the left lower lobe. Candido Patton MD Abdomen X-Ray 02/10/17 Signed Impressions: Service Date/Time: Friday, February 10, 2017 08:14 - CONCLUSION: No acute abdominal abnormality is identified. Angelo Allen MD Wrist X-Ray 02/06/17 Signed Impressions: Service Date/Time: Monday, February 06, 2017 12:50 - CONCLUSION: Minimally displaced distal radius and ulnar fractures. Armando Dodd MD Lumbar Puncture Fluoroscopy 02/01/17 Signed Impressions: Service Date/Time: January 09:35 - CONCLUSION: Uncomplicated fluoroscopically guided lumbar puncture. CSF was clear. Nabeel Peralta MD Head Magnetic Resonance Angiography 01/27/17 Signed Impressions: Service Date/Time: Friday, January 27, 2017 10:33 - CONCLUSION: No intracranial vascular abnormality is identified. There is no aneurysm visualized. Angelo Allen MD IVC Filter Placement X-Ray 01/25/17 Signed Impressions: Service Date/Time: January 10:29 - CONCLUSION: Uncomplicated inferior vena cava filter placement as above. Yung Fowler MD Thoracic Spine MRI 01/24/17 Signed Impressions: Service Date/Time: Tuesday, January 24, 2017 22:29 - CONCLUSION: 1. Mild degenerative spondylosis most prominently at T11-L1 with slight effacement of the anterior thecal sac and left lateral recess. No significant neural foraminal stenosis. 2. No acute fracture. Juan Bhakta MD Renal Ultrasound 01/23/17 Signed Impressions: Service Date/Time: Monday, January 23, 2017 08:53 - CONCLUSION: 1. Evidence of chronic parenchymal disease of both kidneys. No obstructive uropathy or other acute abnormality demonstrated. 2. Trace ascites, nonspecific. Angelo Garrido MD Lumbar Spine MRI 01/23/17 Signed Impressions: Service Date/Time: Monday, January 23, 2017 17:01 - CONCLUSION: 1. At L4-5 is a broad-based disc protrusion with severe central canal and lateral recess stenosis and flattening of the exiting right L4 nerve root. 2. L5-S1 there is a disc protrusion and moderate stenosis with flattening of the exiting L5 nerve roots bilaterally. 3. At L3-4 there is a moderate to severe central stenosis and lateral recess stenosis with mild foraminal stenosis. 4. No acute fracture or spondylolisthesis. Trace Holloway MD Lower Extremity Ultrasound 01/23/17 Signed Impressions: Service Date/Time: Monday, January 23, 2017 09:53 - CONCLUSION: Bilateral focal lower extremity DVT involving the posterior tibial veins. Angelo Garrido MD Cervical Spine MRI 01/23/17 Signed Impressions: Service Date/Time: Monday, January 23, 2017 17:01 - CONCLUSION: 1. Multilevel cervical spine degenerative changes as above. 2. Mild degrees of spinal stenosis at C3/C4-C6/C7. No cord compression or cord signal abnormality. 3. Age indeterminate left paracentral/foraminal disc protrusion at C6/C7. 4. Multilevel foraminal stenosis, most severe on the left at C6/C7. Please see individual levels above. 5. No fracture or subluxation of the cervical spine. Angelo Garrido MD Brain MRI 01/23/17 0000 Signed Impressions: Service Date/Time: Monday, January 23, 2017 17:01 - CONCLUSION: 1. No acute stroke or other acute intracranial abnormality demonstrated. 2. Moderate severity chronic white matter changes, nonspecific but most likely related to chronic small vessel disease. 3. Few scattered tiny lacunar infarcts of the brainstem. 4. Given the findings are not entirely specific, clinical evaluation for possible multiple sclerosis recommended. Angelo Garrido MD Knee X-Ray 01/22/172053 Signed Impressions: Service Date/Time: Sunday, January 22, 2017 21:17 - CONCLUSION: 1. Evidence of moderate to large joint effusion. 2. No acute fracture or malalignment. 3. Mild 3 compartment osteoarthritic change. Benjamin Person MD Hip and Pelvis X-Ray 01/22/172053 Signed Impressions: Service Date/Time: Sunday, January 22, 2017 21:10 - CONCLUSION: 1. Mild to moderate degenerative change of both hips with no acute fracture or malalignment. There is flattening and remodeling of the right humeral head. Benjamin Person MD Objective Remarks AAOx3 NAD Clear lungs BL Abdomen soft, NT, ND no edema in lower extremities Procedures IVC filter placement 01/25/2017 LP 01/26/2017 Medications and IVs Current Medications Medications (Trade) Dose Ordered Sig/Rosalia Route Start Time Stop Time Status Last Admin (NS Flush) 2 ml UNSCH PRN IV FLUSH 01/23/17 00:30 02/01/17 05:07 (NS Flush) 2 ml BID IV FLUSH 01/23/17 09:00 02/14/17 20:50 (Tylenol) 650 mg Q4H PRN PO 01/23/17 00:30 02/14/17 20:50 (Zofran Inj) 4 mg Q6H PRN IVP 01/23/17 00:30 02/10/17 06:45 (Y[place] 5-325 Mg) 1 tab Q4H PRN PO 01/23/17 00:30 02/14/17 12:42 ([place] 7.5-325 Mg) 1 tab Q4H PRN PO 01/23/17 00:30 02/09/17 18:40 (Narcan Inj) 0.4 mg UNSCH PRN IV 01/23/17 00:30 (Edna-Colace) 1 tab BID PO 01/23/17 09:00 02/15/17 08:23 (Milk Of Magnesia Liq) 30 ml Q12H PRN PO 01/23/17 00:30 02/09/17 12:30 (Senokot) 17.2 mg Q12H PRN PO 01/23/17 00:30 02/09/17 12:30 (Dulcolax Supp) 10 mg DAILY PRN RECTAL 01/23/17 00:30 (Tenormin) 25 mg DAILY PO 01/24/17 13:00 Future Hold 02/08/17 08:08 (Lipitor) 10 mg HS PO 01/24/17 21:00 02/14/17 20:50 (Catapres) 0.1 mg Q6H PRN PO 01/24/17 18:00 01/28/17 12:34 (Norvasc) 5 mg DAILY PO 01/28/17 09:00 Future Hold 02/08/17 08:08 (Morphine Inj) 2 mg Q3H PRN IV PUSH 02/10/17 06:15 02/14/17 10:06 (Brethine Inj) 1 mg UNSCH PRN SQ 02/10/17 20:30 (Pepcid Inj) 20 mg HS IV PUSH 02/10/17 22:45 02/14/17 20:49 (D50w (Vial) Inj) 50 ml UNSCH PRN IV PUSH 02/11/17 05:45 (Glucagon Inj) 1 mg UNSCH PRN OTHER 02/11/17 05:45 Heparin Sodium/ Dextrose 250 ml @ 17.28 mls/ hr TITRATE PRN IV 02/11/17 07:00 02/15/17 10:00 (Duoneb Neb) 1 ampule Q2HR NEB PRN NEB 02/11/17 15:00 02/14/17 16:24 Insulin Human Regular 100 units/ Sodium Chloride 100 ml @ 1 mls/hr TITRATE IV 02/11/17 15:00 02/13/17 21:33 Oxacillin Sodium 2 gm/Sodium Chloride 100 ml @ 200 mls/hr Q4H IV 02/13/17 14:00 02/15/17 09:49 (SoluCORTEF INJ) 50 mg Q8HR IV 02/14/17 14:00 02/15/17 06:00 (Duoneb Neb) 1 ampule Q6HR NEB NEB 02/14/17 22:00 02/15/17 08:41 (Haldol Inj) 1 mg Q6H PRN IV 02/14/17 17:30 Potassium Chloride 20 meq/ Sodium Chloride 38.5 meq/Sterile Water 1,019.625 ml @ 100 mls/hr [id number] IV 02/15/17 11:00 (KCl) 30 meq ONCE ONCE PO 02/15/17 11:00 02/15/17 11:01 UNV A/P Problem List: (1) Transverse myelitis ICD Code: G37.3 - Acute transverse myelitis in demyelinating disease of central nervous system Status: Acute Plan: The patient was admitted for suspected transverse myelitis and started on treatment with IV Solu-Medrol 250 mg IV every 6 hours from 01/27 through 02/02. Patient underwent a lumbar puncture on 01/26 and 02/01. CSF culture negative on 01/26, 02/01. Oligoclonal bands negative as well. CSF serum IgG index not elevated. VDRL nonreactive and cryptococcal antigen negative. Brain MRI obtained on 01/23 did not show acute stroke. It did show however few scattered lacunar infarcts of the brainstem. Moderate chronic white matter changes. MRI of the cervical/thoracic spine showed mild spinal stenosis at the level of C3/C4 to C6/C7. No cord compression. RPR negative. Neurology consulted. Dr. Crenshaw evaluated the patient, repeat CT of the brain on 02/10 negative. Continue PT OT. Out of bed with assistance. Remove Sloan catheter and insert condom catheter. (2) Septic shock ICD Code: A41.9 - Sepsis, unspecified organism; R65.21 - Severe sepsis with septic shock Status: Resolved Plan: Septic shock secondary to supratherapeutic thrombophlebitis of the left upper extremity, status post I&D and excision of portion of cephalic vein. Septic shock resolved status post IV fluid administration as well as IV pressors and hydrocortisone at 100 mg IV every 8 hours for relative adrenal insufficiency. (3) HCAP (healthcare-associated pneumonia) ICD Code: J18.9 - Pneumonia, unspecified organism Plan: Patient went into acute hypoxemic hypercarbic respiratory failure and had to be intubated emergently on 02/10. At that time the patient was cared by the professor of art in the intensive care unit. Diagnostic and therapeutic bronchoscopy was performed of the left lower lobe. It was found that the patient had white mucous plugs which were removed and BAL sent. VQ scan obtained on 02/10 also showed a low probably T4 PE. CT of the chest on showed left lower lobe collapse and consolidation and right lower lobe infiltrate. During the patient's stay in the intensive care unit the patient had the endotracheal tube dislodged and this was advanced by Dr. Hogan and the direct laryngoscopy around 5:30 on 02/11. As part of the supportive treatment the patient was given duo nebs every 6 hours scheduled and when needed. Sputum culture grew MSSA. ID consulted and following the patient managed antibiotics. The patient currently on oxacillin. (4) Acute respiratory failure with hypoxia and hypercarbia ICD Code: J96.01 - Acute respiratory failure with hypoxia; J96.02 - Acute respiratory failure with hypercapnia Status: Resolved Plan: As above (5) Hyperlipidemia ICD Code: E78.5 - Hyperlipidemia, unspecified Status: Chronic Plan: Continue statin. (6) HTN (hypertension) ICD Code: I10 - Essential (primary) hypertension Plan: Blood pressure seems to be slightly elevated. Antihypertensive medications were placed on hold due to the patient's having episodes of hypotension. I will resume antihypertensive medications which include atenolol 25 mg by mouth daily and amlodipine 5 mg by mouth daily. (7) DVT of lower extremity, bilateral ICD Code: I82.403 - Acute embolism and thrombosis of unspecified deep veins of lower extremity, bilateral Plan: Patient initially started on heparin drip for treatment of DVT, this was placed on hold for lumbar puncture without suspected traumatic tap. Patient is status post IVC filter which was placed on 01/25/17 and as per documentation the patient had not been on DVT prophylaxis. Last LP was on 02/01. The case was discussed by the professor of art with Dr. Crenshaw from neurology who agreed that he was appropriate to anticoagulate the patient. Ultrasound of the left upper extremity on 02/10 showed occlusive thrombus in the mid cephalic vein and basilic vein. I will discontinue heparin and transitioned to oral Xarelto. I will start Xarelto add 50 mg by mouth twice a day 21 days and then 20 mg daily. (8) Diabetes mellitus with hyperglycemia ICD Code: E11.65 - Type 2 diabetes mellitus with hyperglycemia Plan: Blood sugar seems to be stable. Patient currently on IV insulin drip as per protocol. I will discontinue IV insulin drip and start long-acting insulin Levemir with SSI with insulin NovoLog. Monitor Accu-Cheks. (9) Hypocalcemia ICD Code: E83.51 - Hypocalcemia Plan: Likely due to nutritional deficiencies since patient was nothing by mouth. The patient is now able to eat a diet. Patient status post replacement with IV calcium chloride and protein corrected calcium now within normal range. (10) Hypernatremia ICD Code: E87.0 - Hyperosmolality and hypernatremia Plan: Likely secondary to dehydration. The patient started half-normal saline plus potassium chloride, however sodium still slightly elevated from 150-151. I will switch IV fluids to 1/4 NS + KCL and continue to monitor BMP every 6 hours. (11) Hypokalemia ICD Code: E87.6 - Hypokalemia Plan: Likely due to nutritional deficiency. Continue to replace orally and monitor BMP. (12) Acute metabolic encephalopathy ICD Code: G93.41 - Metabolic encephalopathy Plan: Metabolic encephalopathy likely multifactorial from sepsis, which is resolving. The patient is more awake and alert and following commands. (13) Quadriparesis ICD Code: G82.50 - Quadriplegia, unspecified Status: Acute Plan: Quadriparesis thought to be secondary to transverse myelitis. (14) GLORIA (acute kidney injury) ICD Code: N17.9 - Acute kidney failure, unspecified Plan: AK eye likely secondary to prerenal azotemia and sepsis. Renal ultrasound obtained on 01/23 did not show any evidence of chronic parenchymal disease of both kidneys. No obstructive uropathy or other acute abnormality demonstrated. Creatinine on admission was 4.09 and it has been slowly trending down to 1.8. Continue IV fluids and continue to monitor BUN/creatinine, avoid nephrotoxins. Assessment and Plan Metabolic encephalopathy 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 Treated with Solu- Medrol 250 mg IV every 6 hours from 01/27 - 02/02. Had LP 01/26 and 02/01. CSF culture negative 01/26, 02/01 Oligoclonal bands negative. CSF/serum IgG index is not elevated. VDRL nonreactive. Cryptococcal antigen negative. Brain MRI 01/23 no acute stroke. Few scattered lacunar infarcts of the brainstem. Moderate chronic white matter changes. MRI cervical/thoracic spine- mild spinal stenosis 3C3/C4 to C6/C7. No cord compression. RPR negative Neurology has been following, Dr. Crenshaw. Repeat CT brain 02/10 - negative Continue PT/OT Acute hypoxemic respiratory failure Probable healthcare associated pneumonia Intubated emergently 02/10. ACV TV 600 PEEP 8 FIO2 45%. Tolerating SBT, plan to extubate Diagnostic and therapeutic bronchoscopy performed for left lower lobe. White mucous plugs removed and BAL sent. VQ scan 02/10 low probability for PE. CT chest02/10 - left lower lobe collapse and consolidation. Right lower lobe infiltrate. Endotracheal tube did get dislodged and was advanced by Dr. Hogan under direct laryngoscopy around 5:30 02/11. DuoNeb every 6 hours scheduled and when necessary Sputum culture MSSA Septic shock Cardiomyopathy Hyperlipidemia Hypertension Septic shock secondary to suppurative thrombophlebitis of the left upper extremity, status post I&D and excision of portion of cephalic vein. Septic shock resolved. Status post IV fluid administration. Patient also on IV pressors and hydrocortisone and oh milligrams IV every 8 hours for relative adrenal insufficiency. On atorvastatin 10 mg by mouth daily at bedtime. Neurologic consulted once clinically improved. Sputum with MSSA Antibiotic treatment as per ID - currently on oxacillin. Bilateral lower extremity DVT Status post IVC filter Septic thrombophlebitis with occlusive thrombus in mid cephalic and basilic vein. Initially treated with heparin for DVT, however this was placed on hold for lumbar puncture with suspected traumatic tap. IV heparin 02/11/17. Status post IVC filter which was placed on 01/25/17. As per records the patient has not been on DVT prophylaxis. Last LP on 02/01. The case was discussed with Dr. Crenshaw from neurology who agreed that it was appropriate to anticoagulate. Ultrasound on left upper extremity on with occlusive thrombus in the mid cephalic vein, basilic vein. Diabetes mellitus with hyperglycemia Continue insulin drip. Right distal ulna fracture Patient seen by orthopedic surgery who recommended nonoperative management. Right wrist splint in place. GLORIA Hypocalcemia Hypernatremia Hypokalemia Replace with IV calcium chloride. Place on one fourth normal saline with potassium chloride and recheck BMP at 1600 hrs. Potassium 3.0. Replace orally and continue to monitor BMP. Gloria secondary to sepsis and septic shock. Creatinine trending down, continue to monitor BMP, avoid nephrotoxins, measure strict I's and O's. GI prophylaxis with Famotidine On heparin drip for treatment of DVT Discharge Planning Continue to monitor in intensive care unit. Problem Qualifiers (1) Hyperlipidemia: Qualified Codes: E78.5 - Hyperlipidemia, unspecified (2) HTN (hypertension): Qualified Codes: I10 - Essential (primary) hypertension (3) Diabetes mellitus with hyperglycemia: Qualified Codes: E11.65 - Type 2 diabetes mellitus with hyperglycemia Abdelrahman Alcantara MD Feb 15, 2017 11:41
[2017-02-15] MEDS ORDERED: DEXTROSE 50% IN WATER 50 ML VIAL(D50) IV PUSH PRN (11:45)
[2017-02-15] MEDS: INSULIN ASPART SUPPLEMENTAL SCALE SQ SCH ×3 (12:00→21:00)
[2017-02-15] MEDS: POTASSIUM CHLORIDE INJ 20 MEQ, SODIUM CHLORIDE 23.4% INJ 38.5 MEQ in WATER STERILE FOR ... IV SCH (12:57)
--- NOTE | 2017-02-15 14:43 | HHI.NPPN ---
Subjective History of Present Illness 61-year-old with history of urinary stone Additional Remarks Patient is extubated Review of Systems General Constitutional: Fatigue Objective Data Data 02/15/17 02/16/17 19:00 07:00 Intake Total 458.9 ml Balance 458.9 ml IV Total 458.9 ml Vital Signs Date Time Temp Pulse Resp B/P (MAP) Pulse Ox O2 Delivery O2 Flow Rate FiO2 02/15/17 10:00 96 02/15/17 08:43 99 Nasal Cannula 2.00 02/15/17 08:00 97.5 92 18 170/90 (116) 98 02/15/17 08:00 92 02/15/17 06:00 103 02/15/17 04:00 97.5 92 25 151/82 (105) 93 02/15/17 04:00 98 02/15/17 02:00 103 02/15/17 00:00 101 02/15/17 00:00 97.5 101 24 169/94 (119) 98 02/14/17 22:00 103 02/14/17 20:00 97.3 107 23 149/81 (103) 96 02/14/17 20:00 100 02/14/17 19:44 98 Nasal Cannula 2.00 02/14/17 18:00 100 02/14/17 16:00 104 02/14/17 16:00 97.2 104 145/83 (103) 97 -: 02/15/17 0445 02/15/17 0445 Microbiology 02/15/17 Aerobic Blood Culture, Received Pending 02/15/17 Anaerobic Blood Culture, Received Pending Physical Exam Neck Neck Exam: Neck Supple Pulmonary Resp Exam: Clear Bilaterally, Breath Sounds Equal Cardiology CV Exam: Regular, Normal Sinus Rhythm Gastrointestinal/Abdomen GI Exam: Soft, Non-Tender, Bowel Sounds Present Extremeties Extremities Exam: Trace Edema Neurologic Neuro Exam: Sedated Assessment/Plan Problem List: (1) Acute renal failure ICD Codes: N17.9 - Acute kidney failure, unspecified Status: Acute Plan: Cr declined 1.7 Na 151 K low need free water K replaced ARF resolving Patient develop Hypotension,sepsis staph aureus respiratory failure and increase WBC. Has aspiration pneumonia. developed sepsis with ARF again creatinine declined slightly post hydration 1/ 4NS 100 cc/hr, cr declined UOP good Continue IVF and antibiotics. on Vanco follow levels Follow the urine out put and BMP. IVF changed 1/4 saline plus KCL (2) CKD (chronic kidney disease) stage 3, GFR 30-59 ml/min ICD Codes: N18.3 - Chronic kidney disease, stage 3 (moderate) Status: Chronic Plan: Ultrasound revealed chronic kidney disease there is no kidney stones (3) Diabetes ICD Codes: E11.9 - Type 2 diabetes mellitus without complications Plan: Continue to monitor (4) Distal end of ulna fracture, closed ICD Codes: S52.609A - Unspecified fracture of lower end of unspecified ulna, initial encounter for closed fracture Status: Acute Plan: Orthopedic is following Problem Qualifiers (1) Acute renal failure: Qualified Codes: N17.9 - Acute kidney failure, unspecified Laura Liao MD Feb 15, 2017 14:43
[2017-02-15] MEDS: INSULIN DETEMIR 100 UNITS/ML VIAL SQ SCH ×2 (15:16→20:59)
[2017-02-15 15:27] LABS: BICARBONATE 23.5 MEQ/L (21.0-32.0)
[2017-02-15 15:30] LABS: POTASSIUM 2.8 MEQ/L (3.5-5.1)
[2017-02-15] MEDS: RIVAROXABAN 15 MG TAB PO SCH ×2 (15:37→20:40)
--- NOTE | 2017-02-15 17:11 | HHI.IDPN ---
Subjective Subjective Remarks Patient is a 62-year-old male, admitted to the hospital for evaluation of pain in his right wrist. He gave a history of falling about a week ago and apparently had immediate pain in the right wrist. He did not seek any medical attention initially because reportedly he was very busy. He eventually presented, and he was found to have a distal ulnar fracture on plain films. He also had some redness and swelling. Orthopedics saw the patient, and was being treated conservatively with the splint. During this hospitalization also he started complaining of generalized weakness but more so in his lower extremity than his upper extremity. He had swelling in both lower extremity which revealed evidence of DVT in the posterior tibial veins. Neurology had seen the patient and he underwent lumbar puncture which apparently was traumatic. Patient was therefore not given anticoagulation because of the traumatic LP, and he underwent placement of an IVC filter on January 25. Patient had another lumbar puncture on February 01. He was felt to have transverse myelitis, and he was given high-dose IV Solu-Medrol from January 27 to February 02. There was apparently some improvement in his weakness. The imaging studies done for his weakness showed some spinal stenosis, and neurosurgery was consult that and recommended that there was no surgical intervention to be done. Patient has been stabilizing, but last night apparently deteriorated, and he ended up getting intubated, and had significant hypotension requiring pressors. There was also an ultrasound done of his left upper extremity which showed DVT, and there was evidence of superior 2 thrombophlebitis. Vascular surgery was consult to it and he had IND on his left upper extremity. Patient has had some fevers since yesterday. 2 blood cultures were done yesterday and they're now reported as growing gram-positive cocci in [place] in clusters. He is currently sedated and intubated. He is on Levophed and vasopressin. A central line was placed as well as a femoral a line. He apparently had an IV in his left upper extremity and that was removed yesterday. Patient also has history of chronic kidney disease, and nephrology evaluated the patient. He was just being monitored for his renal insufficiency. Infectious disease consultation has been requested to evaluate the patient. Notes reviewed D/W RN Temps ok Off precedex Mental status better Last BC 02/12 (+) Repeat BC after that negatuve so far WBC normal Creatinine improving Echo no vegetation BC x 2 with MSSA C/S sputum MSSA LUE C/S MSSA Antibiotics Oxacillin Lines LIJ TLC Past Medical History Gouty arthritis Chronic kidney disease Hx multiple kidney stones Hypertension GERD Diabetes Past Surgical History Rhinoplasty Kidney stone removal with cystoscopy and ureteral stent Allergies: Coded Allergies: levofloxacin (Verified Allergy, Severe, 01/22/17) Objective . Vital Signs Date Time Temp Pulse Resp B/P (MAP) Pulse Ox O2 Delivery O2 Flow Rate FiO2 02/15/17 16:00 90 02/15/17 14:00 96 02/15/17 12:00 90 02/15/17 12:00 97.7 90 20 145/75 (98) 98 02/15/17 10:00 96 02/15/17 08:43 99 Nasal Cannula 2.00 02/15/17 08:00 97.5 92 18 170/90 (116) 98 02/15/17 08:00 92 02/15/17 06:00 103 02/15/17 04:00 97.5 92 25 151/82 (105) 93 02/15/17 04:00 98 02/15/17 02:00 103 02/15/17 00:00 101 02/15/17 00:00 97.5 101 24 169/94 (119) 98 02/14/17 22:00 103 02/14/17 20:00 97.3 107 23 149/81 (103) 96 02/14/17 20:00 100 02/14/17 19:44 98 Nasal Cannula 2.00 02/14/17 18:00 100 02/15/17 02/15/17 02/16/17 15:00 23:00 07:00 Intake Total 458.9 ml Balance 458.9 ml IV Total 458.9 ml . Laboratory Tests Test 02/14/17 03:45 02/15/17 04:45 White Blood Count 12.8 TH/MM3 10.3 TH/MM3 Red Blood Count 3.12 MIL/MM3 3.29 MIL/MM3 Hemoglobin 8.2 GM/DL 8.8 GM/DL Hematocrit 25.9 % 27.3 % Mean Corpuscular Volume 83.2 FL 83.1 FL Mean Corpuscular Hemoglobin 26.3 PG 26.8 PG Mean Corpuscular Hemoglobin Concent 31.6 % 32.2 % Red Cell Distribution Width 18.6 % 18.3 % Platelet Count 133 TH/MM3 175 TH/MM3 Mean Platelet Volume 8.7 FL 8.7 FL CBC Comment AUTO DIFF AUTO DIFF Differential Total Cells Counted 100 Neutrophils % (Manual) 85 % Band Neutrophils % 11 % Lymphocytes % 3 % Monocytes % 1 % Neutrophils # (Manual) 12.3 TH/MM3 Differential Comment FINAL DIFF MANUAL AUTO DIFF CONFIRMED Toxic Vacuolation PRESENT Platelet Estimate LOW Platelet Morphology Comment NORMAL Helmet Cells OCC Acanthocytes OCC Keratocytes OCC Neutrophils (%) (Auto) 88.6 % Lymphocytes (%) (Auto) 5.4 % Monocytes (%) (Auto) 5.6 % Eosinophils (%) (Auto) 0.0 % Basophils (%) (Auto) 0.4 % Neutrophils # (Auto) 9.1 TH/MM3 Lymphocytes # (Auto) 0.6 TH/MM3 Monocytes # (Auto) 0.6 TH/MM3 Eosinophils # (Auto) 0.0 TH/MM3 Basophils # (Auto) 0.0 TH/MM3 Laboratory Tests Test 02/14/17 03:45 02/14/17 21:06 02/15/17 04:45 02/15/17 14:13 Blood Urea Nitrogen 38 MG/DL 35 MG/DL 34 MG/DL 32 MG/DL Creatinine 2.07 MG/DL 1.92 MG/DL 1.88 MG/DL 1.70 MG/DL Random Glucose 174 MG/DL 163 MG/DL 153 MG/DL 142 MG/DL Total Protein 5.0 GM/DL 5.1 GM/DL Albumin 1.3 GM/DL 1.5 GM/DL Calcium Level 7.0 MG/DL 8.2 MG/DL 7.7 MG/DL 7.8 MG/DL Magnesium Level 1.9 MG/DL Alkaline Phosphatase 81 U/L 97 U/L Aspartate Amino Transf (AST/SGOT) 16 U/L 26 U/L Alanine Aminotransferase (ALT/SGPT) 17 U/L 16 U/L Total Bilirubin 0.3 MG/DL 0.2 MG/DL Sodium Level 150 MEQ/L 150 MEQ/L 151 MEQ/L 150 MEQ/L Potassium Level 3.0 MEQ/L 3.1 MEQ/L 3.1 MEQ/L 2.8 MEQ/L Chloride Level 117 MEQ/L 119 MEQ/L 119 MEQ/L 118 MEQ/L Carbon Dioxide Level 24.5 MEQ/L 23.2 MEQ/L 23.6 MEQ/L 23.5 MEQ/L Anion Gap 9 MEQ/L 8 MEQ/L 8 MEQ/L 9 MEQ/L Estimat Glomerular Filtration Rate 33 ML/MIN 36 ML/MIN 37 ML/MIN 41 ML/MIN Protein Corrected Calcium 8.1 MG/DL Microbiology Date/Time Source Procedure Growth Status 02/15/17 04:45 Blood Peripheral Aerobic Blood Culture Pending Received 02/15/17 04:45 Blood Peripheral Anaerobic Blood Culture Pending Received 02/14/17 03:45 Blood Peripheral Aerobic Blood Culture - Preliminary NO GROWTH IN 1 DAY Resulted 02/14/17 03:45 Blood Peripheral Anaerobic Blood Culture - Preliminary NO GROWTH IN 1 DAY Resulted 02/13/17 13:06 Blood Peripheral Aerobic Blood Culture - Preliminary NO GROWTH IN 2 DAYS Resulted 02/13/17 13:06 Blood Peripheral Anaerobic Blood Culture - Preliminary NO GROWTH IN 2 DAYS Resulted Imaging Last Impressions Chest X-Ray 02/12/17 0600 Signed Impressions: Service Date/Time: Sunday, February 12, 2017 03:32 - CONCLUSION: 1. Support apparatus in good position. Relatively stable basilar airspace disease and pleural effusions. Trace Holloway MD Upper Extremity Ultrasound 02/10/17 0000 Signed Impressions: Service Date/Time: Friday, February 10, 2017 18:46 - CONCLUSION: Occlusive thrombus in the cephalic and basilic veins. Benjamin Person MD Lung Scan- Nuclear Medicine 02/10/17 0000 Signed Impressions: Service Date/Time: Friday, February 10, 2017 22:17 - CONCLUSION: Low probability pulmonary embolism. Candido aPtton MD Head CT 02/10/17 0000 Signed Impressions: Service Date/Time: Friday, February 10, 2017 23:51 - CONCLUSION: Negative noncontrast CT brain. Candido Patton MD Chest CT 02/10/17 0000 Signed Impressions: Service Date/Time: Friday, February 10, 2017 23:56 - CONCLUSION: Left lower lobe collapse with consolidation. Patchy infiltrates the medial right lower lung. Candido Patton MD Abdomen/Pelvis CT 02/10/17 0000 Signed Impressions: Service Date/Time: Friday, February 10, 2017 23:59 - CONCLUSION: 1. Nonobstructing 12 mm calcified stone lower pole right kidney. 2. Atrophic left kidney with significant cortical thinning. 3. Bilateral fat-containing inguinal hernias, large on the right, and moderate on the left. 4. Consolidative collapse of the left lower lobe. Candido Patton MD Abdomen X-Ray 02/10/17 Signed Impressions: Service Date/Time: Friday, February 10, 2017 08:14 - CONCLUSION: No acute abdominal abnormality is identified. Angelo Allen MD Wrist X-Ray 02/06/17 Signed Impressions: Service Date/Time: Monday, February 06, 2017 12:50 - CONCLUSION: Minimally displaced distal radius and ulnar fractures. Armando Dodd MD Lumbar Puncture Fluoroscopy 02/01/17 Signed Impressions: Service Date/Time: January 09:35 - CONCLUSION: Uncomplicated fluoroscopically guided lumbar puncture. CSF was clear. Nabeel Peralta MD Head Magnetic Resonance Angiography 01/27/17 Signed Impressions: Service Date/Time: Friday, January 27, 2017 10:33 - CONCLUSION: No intracranial vascular abnormality is identified. There is no aneurysm visualized. Aneglo Allen MD IVC Filter Placement X-Ray 01/25/17 Signed Impressions: Service Date/Time: January 10:29 - CONCLUSION: Uncomplicated inferior vena cava filter placement as above. Yung Fowler MD Thoracic Spine MRI 01/24/17 Signed Impressions: Service Date/Time: Tuesday, January 24, 2017 22:29 - CONCLUSION: 1. Mild degenerative spondylosis most prominently at T11-L1 with slight effacement of the anterior thecal sac and left lateral recess. No significant neural foraminal stenosis. 2. No acute fracture. Juan Bhakta MD Renal Ultrasound 01/23/17 Signed Impressions: Service Date/Time: Monday, January 23, 2017 08:53 - CONCLUSION: 1. Evidence of chronic parenchymal disease of both kidneys. No obstructive uropathy or other acute abnormality demonstrated. 2. Trace ascites, nonspecific. Angelo Garrido MD Lumbar Spine MRI 01/23/17 Signed Impressions: Service Date/Time: Monday, January 23, 2017 17:01 - CONCLUSION: 1. At L4-5 is a broad-based disc protrusion with severe central canal and lateral recess stenosis and flattening of the exiting right L4 nerve root. 2. L5-S1 there is a disc protrusion and moderate stenosis with flattening of the exiting L5 nerve roots bilaterally. 3. At L3-4 there is a moderate to severe central stenosis and lateral recess stenosis with mild foraminal stenosis. 4. No acute fracture or spondylolisthesis. Trace Holloway MD Lower Extremity Ultrasound 01/23/17 Signed Impressions: Service Date/Time: Monday, January 23, 2017 09:53 - CONCLUSION: Bilateral focal lower extremity DVT involving the posterior tibial veins. Angelo Garrido MD Cervical Spine MRI 01/23/17 Signed Impressions: Service Date/Time: Monday, January 23, 2017 17:01 - CONCLUSION: 1. Multilevel cervical spine degenerative changes as above. 2. Mild degrees of spinal stenosis at C3/C4-C6/C7. No cord compression or cord signal abnormality. 3. Age indeterminate left paracentral/foraminal disc protrusion at C6/C7. 4. Multilevel foraminal stenosis, most severe on the left at C6/C7. Please see individual levels above. 5. No fracture or subluxation of the cervical spine. Angelo Garrido MD Brain MRI 01/23/17 Signed Impressions: Service Date/Time: Monday, January 23, 2017 17:01 - CONCLUSION: 1. No acute stroke or other acute intracranial abnormality demonstrated. 2. Moderate severity chronic white matter changes, nonspecific but most likely related to chronic small vessel disease. 3. Few scattered tiny lacunar infarcts of the brainstem. 4. Given the findings are not entirely specific, clinical evaluation for possible multiple sclerosis recommended. Angelo Garrido MD Knee X-Ray 01/22/172053 Signed Impressions: Service Date/Time: Sunday, January 22, 2017 21:17 - CONCLUSION: 1. Evidence of moderate to large joint effusion. 2. No acute fracture or malalignment. 3. Mild 3 compartment osteoarthritic change. Benjamin Person MD Hip and Pelvis X-Ray 01/22/172053 Signed Impressions: Service Date/Time: Sunday, January 22, 2017 21:10 - CONCLUSION: 1. Mild to moderate degenerative change of both hips with no acute fracture or malalignment. There is flattening and remodeling of the right humeral head. Benjamin Person MD Physical Exam GENERAL: lethargic, not in distress SKIN: Cool and dry. No generalized rash, no ecchymoses and no evidence of embolic lesions. HEAD: Atraumatic. Normocephalic. No temporal wasting, or tenderness. EYES: [place] conjunctiva. No petechia or hemorrhage. Pupils equal, round and reactive to light. No scleral icterus. No injection or drainage. EARS, NOSE AND THROAT: Nose without bleeding or purulent nasal discharge. He is orally intubated NECK: Trachea midline. Supple and no meningeal signs CARDIOVASCULAR: Regular rate and rhythm. Soft heart sounds. No murmurs, rubs or gallops heard RESPIRATORY: Coarse BS bilaterally ABDOMEN: Soft, nondistended, bowel sounds present and normoactive, no reaction to palpation. No guarding. EXTREMITIES: No clubbing, cyanosis. Both hands less edematous. Has evidence of multiple gouty tophi in both hands and feet. Cool extremities but no mottling. LUE - there is a 2.5 cm incision with packing, has dry intact dressing in place, less induration NEUROLOGICAL: Awake, focusing PSYCHIATRIC: Calmer LINE: Line with no evidence of infection : Sloan in place, urine looks clear Assessment & Plan Remarks IMPRESSION MSSA sepsis, with shock, likely Staph, due to suppurative thrombophlebitis LUE, S/P I and D and excision of portion of cephalic vein - off pressors Respiratory failure, CXR now with infiltrates - sputum with MSSA - extubated Recent Rx 7 days high dose solumedrol for transverse myelitis Wu LE DVT has IVC filter placed 01/25 - ?hypercoagulable state Chronic kidney disease Known DM, HTN Gouty tophi both hands and feet RECOMMENDATION Continue IV Oxacillin Follow repeat BC to document clearing Follow C/S and adjust Abx Monitor progress Will need 6 weeks IV Abx from date of last (+) BC D/W Irene Vogel MD Feb 15, 2017 17:11
[2017-02-15] MEDS ORDERED: POTASSIUM CHLOR 20 MEQ PREMIX 200 ML ONE (17:33)
[2017-02-15] MEDS: POTASSIUM CHLOR 20 MEQ PREMIX 100 ML IV SCH ×2 (18:02→20:38)
[2017-02-15] MEDS: FAMOTIDINE 20 MG/2 ML VIAL IV PUSH SCH (20:39)
[2017-02-15] MEDS: ATORVASTATIN 10 MG TAB PO SCH (20:39)
[2017-02-15 21:44] LABS: STAT NO
[2017-02-15] MEDS: MORPHINE SULFATE 4 MG/ML INJ IV PUSH PRN (23:23)
[2017-02-16] VITALS (13 sets, daily range): BP systolic 151–182; BP diastolic 77–104; PULSE 72–94; RESP 16–20; TEMP 97.6–98.2; O2SAT 95–100
[2017-02-16] MEDS: OXACILLIN INJ 2 GM in SODIUM CHLORIDE 0.9% INJ 100 ML IV SCH ×6 (01:35→22:06)
[2017-02-16] MEDS: POTASSIUM CHLORIDE INJ 20 MEQ, SODIUM CHLORIDE 23.4% INJ 38.5 MEQ in WATER STERILE FOR ... IV SCH ×3 (01:35→17:36)
[2017-02-16] MEDS: RESP: ALBUTEROL 2.5 MG/IPRATROPIUM 0.5 MG NEB (SCH) NEB ×4 (04:18→21:07)
[2017-02-16 05:31] LABS: AUTOMATED NEUTROPHIL # 5.4 TH/MM3 (1.8-7.7); BASOPHIL % 0.2 % (0.0-2.0); EOSINOPHIL # 0.2 TH/MM3 (0-0.4); EOSINOPHIL % 2.2 % (0.0-4.0); HEMATOCRIT 28.2 % (39.0-51.0); LYMPH % 9.3 % (9.0-44.0); LYMPHOCYTE # 0.6 TH/MM3 (1.0-4.8); MEAN CELL VOLUME 83.7 FL (80.0-100.0); MEAN CORPUSCULAR HEMOGLOBIN 26.9 PG (27.0-34.0); MEAN CORPUSCULAR HGB CONC 32.1 % (32.0-36.0); MONO % 8.3 % (0.0-8.0); PLATELET COUNT 180 TH/MM3 (150-450); RED BLOOD COUNT 3.37 MIL/MM3 (4.50-5.90); RED CELL DISTRIBUTION WIDTH 19.3 % (11.6-17.2); WHITE BLOOD COUNT 6.7 TH/MM3 (4.0-11.0)
[2017-02-16 05:36] LABS: APTT (PATIENT) 34.5 SEC (24.3-30.1)
[2017-02-16 05:41] LABS: BICARBONATE 23.3 MEQ/L (21.0-32.0); CALCIUM-PROTEIN CORRECTED 8.5 MG/DL (8.5-10.1); MAGNESIUM 1.7 MG/DL (1.5-2.5); POTASSIUM 3.3 MEQ/L (3.5-5.1); TOTAL BILIRUBIN ADULT 0.2 MG/DL (0.2-1.0)
[2017-02-16 05:54] LABS: HEMO FLAGS AUTO DIFF
[2017-02-16] MEDS: HYDROCORTISONE SOD SUCCINATE 250 MG VIAL IV SCH (06:15)
[2017-02-16] MEDS ORDERED: POTASSIUM PHOSPHATE/SODIUM PHOSPHATE 250 MG TAB PO ONE (06:45)
[2017-02-16] MEDS ORDERED: POTASSIUM CHLORIDE 20 MEQ CONTROLLED RELEASE TAB PO ONE ×2 (06:45→16:00)
[2017-02-16] MEDS: DOCUSATE SODIUM 50 MG/SENNA 8.6 MG TAB PO SCH ×2 (08:24→22:05)
[2017-02-16] MEDS: RIVAROXABAN 15 MG TAB PO SCH ×2 (08:25→22:05)
[2017-02-16] MEDS: INSULIN DETEMIR 100 UNITS/ML VIAL SQ SCH ×2 (08:25→22:06)
[2017-02-16] MEDS: SODIUM CHLORIDE 0.9% FLUSH 10 ML FLUSH IV FLUSH SCH ×2 (09:00→22:07)
[2017-02-16] MEDS: cloNIDine HCL 0.1 MG TAB PO PRN (09:19)
[2017-02-16] MEDS: INSULIN ASPART SUPPLEMENTAL SCALE SQ SCH ×4 (09:21→21:00)
[2017-02-16 10:05] LABS: BANDS 1 % (0-6); CORRECTED NUCLEATED RBC 1 /100 WBC (0-0); METAMYELOCYTES 1 % (0-1); MYELOCYTES 1 % (0-0); NEUTROPHIL # MANUAL DIFF 5.3 TH/MM3 (1.8-7.7); PLASMA CELLS 1 % (0-0); POLYS (SEG NEUTROPHILS) 76 % (16-70); WBC DIFF SAMPLE 100
[2017-02-16 10:07] LABS: TEARDROP RBCS 1+ (NORMAL)
[2017-02-16 10:08] LABS: PLATELET ESTIMATE SMEAR NORMAL (NORMAL); PLATELET MORPHOLOGY NORMAL (NORMAL); SCAN/DIFF FINAL DIFF MANUAL
--- NOTE | 2017-02-16 11:20 | HHI.NPPN ---
Subjective History of Present Illness 61-year-old with history of urinary stone Additional Remarks Patient is feeling better Review of Systems General Constitutional: Fatigue Objective Data Data Vital Signs Date Time Temp Pulse Resp B/P (MAP) Pulse Ox O2 Delivery O2 Flow Rate FiO2 02/16/17 08:59 100 Nasal Cannula 2.00 02/16/17 06:00 73 02/16/17 04:00 76 02/16/17 04:00 97.6 76 16 167/84 (111) 95 02/16/17 02:00 90 02/16/17 00:00 97.6 90 18 151/92 (111) 99 02/16/17 00:00 92 02/15/17 22:00 105 02/15/17 20:47 97 21 02/15/17 20:00 97.6 88 17 144/87 (106) 98 02/15/17 20:00 88 02/15/17 18:00 88 02/15/17 16:00 90 02/15/17 16:00 98.1 90 18 154/80 (104) 99 02/15/17 14:00 96 02/15/17 12:00 90 02/15/17 12:00 97.7 90 20 145/75 (98) 98 -: 02/16/17 0452 02/16/17 0452 Physical Exam Neck Neck Exam: Neck Supple Pulmonary Resp Exam: Clear Bilaterally, Breath Sounds Equal Cardiology CV Exam: Regular, Normal Sinus Rhythm Gastrointestinal/Abdomen GI Exam: Soft, Non-Tender, Bowel Sounds Present Extremeties Extremities Exam: Trace Edema Neurologic Neuro Exam: Sedated Assessment/Plan Problem List: (1) Acute renal failure ICD Codes: N17.9 - Acute kidney failure, unspecified Status: Acute Plan: Cr declined 1.5 Na 147 K low free water K replaced ARF resolving Patient develop Hypotension,sepsis staph aureus respiratory failure and increase WBC. Has aspiration pneumonia. developed sepsis with ARF again creatinine declined slightly post hydration 1/4 NS 100 cc/hr, cr declined Continue IVF and antibiotics. on Vanco follow levels Follow the urine out put and BMP. IVF changed 1/4 saline plus KCL (2) CKD (chronic kidney disease) stage 3, GFR 30-59 ml/min ICD Codes: N18.3 - Chronic kidney disease, stage 3 (moderate) Status: Chronic Plan: Ultrasound revealed chronic kidney disease there is no kidney stones (3) Diabetes ICD Codes: E11.9 - Type 2 diabetes mellitus without complications Plan: Continue to monitor (4) Distal end of ulna fracture, closed ICD Codes: S52.609A - Unspecified fracture of lower end of unspecified ulna, initial encounter for closed fracture Status: Acute Plan: Orthopedic is following Problem Qualifiers (1) Acute renal failure: Qualified Codes: N17.9 - Acute kidney failure, unspecified Laura Liao MD Feb 16, 2017 11:20
[2017-02-16] MEDS: HYDROCORTISONE SOD SUCCINATE 100 MG VIAL IV SCH ×2 (16:03→22:04)
--- NOTE | 2017-02-16 17:52 | HHI.PR ---
Subjective Remarks Patient is more awake as per RN patient has not been agitated, follows commands BP noted to be elevated creatinine is trending down k low sodium is trending down Objective Vitals Vital Signs Date Time Temp Pulse Resp B/P (MAP) Pulse Ox O2 Delivery O2 Flow Rate FiO2 02/16/17 14:00 94 02/16/17 12:00 72 02/16/17 12:00 97.6 72 16 161/77 (105) 99 02/16/17 10:00 90 02/16/17 08:59 100 Nasal Cannula 2.00 02/16/17 08:00 98.2 72 20 182/93 (122) 100 02/16/17 08:00 72 02/16/17 06:00 73 02/16/17 04:00 76 02/16/17 04:00 97.6 76 16 167/84 (111) 95 02/16/17 02:00 90 02/16/17 00:00 97.6 90 18 151/92 (111) 99 02/16/17 00:00 92 02/15/17 22:00 105 02/15/17 20:47 97 21 02/15/17 20:00 97.6 88 17 144/87 (106) 98 02/15/17 20:00 88 02/15/17 18:00 88 I/O 02/15/17 02/15/17 02/15/17 02/16/17 02/16/17 02/16/17 07:00 15:00 23:00 07:00 15:00 23:00 Intake Total 120 ml 458.9 ml 384 ml 100 ml Output Total 920 ml 1400 ml 1150 ml Balance -800 ml 458.9 ml -1016 ml -1050 ml Intake Oral 120 ml IV Total 458.9 ml 384 ml 100 ml Output Urine Total 900 ml 1400 ml 1150 ml Stool Total 0 ml Drainage Total 20 ml 0 ml # Voids 1 # Bowel Movements 0 Result Diagram: 02/16/17 0452 02/16/17 0452 Imaging Last Impressions Chest X-Ray 02/15/17 0600 Signed Impressions: Service Date/Time: January 06:10 - CONCLUSION: 1. Stable basilar airspace disease and small effusion, left greater than right. Previous left central line has been removed. Trace Holloway MD Upper Extremity Ultrasound 9/23/17 0000 Signed Impressions: Service Date/Time: Friday, February 10, 2017 18:46 - CONCLUSION: Occlusive thrombus in the cephalic and basilic veins. Benjamin Person MD Lung Scan-V Nuclear Medicine 02/10/17 Signed Impressions: Service Date/Time: Friday, February 10, 2017 22:17 - CONCLUSION: Low probability pulmonary embolism. Candido Patton MD Head CT 02/10/17 Signed Impressions: Service Date/Time: Friday, February 10, 2017 23:51 - CONCLUSION: Negative noncontrast CT brain. Candido Patton MD Chest CT 02/10/17 Signed Impressions: Service Date/Time: Friday, February 10, 2017 23:56 - CONCLUSION: Left lower lobe collapse with consolidation. Patchy infiltrates the medial right lower lung. Candido Patton MD Abdomen/Pelvis CT 02/10/17 Signed Impressions: Service Date/Time: Friday, February 10, 2017 23:59 - CONCLUSION: 1. Nonobstructing 12 mm calcified stone lower pole right kidney. 2. Atrophic left kidney with significant cortical thinning. 3. Bilateral fat-containing inguinal hernias, large on the right, and moderate on the left. 4. Consolidative collapse of the left lower lobe. Candido Patton MD Abdomen X-Ray 02/10/17 Signed Impressions: Service Date/Time: Friday, February 10, 2017 08:14 - CONCLUSION: No acute abdominal abnormality is identified. Angelo Allen MD Wrist X-Ray 02/06/17 Signed Impressions: Service Date/Time: Monday, February 06, 2017 12:50 - CONCLUSION: Minimally displaced distal radius and ulnar fractures. Armando Dodd MD Lumbar Puncture Fluoroscopy 02/01/17 Signed Impressions: Service Date/Time: January 09:35 - CONCLUSION: Uncomplicated fluoroscopically guided lumbar puncture. CSF was clear. Nabeel Peralta MD Head Magnetic Resonance Angiography 01/27/17 Signed Impressions: Service Date/Time: Friday, January 27, 2017 10:33 - CONCLUSION: No intracranial vascular abnormality is identified. There is no aneurysm visualized. Angelo Allen MD IVC Filter Placement X-Ray 01/25/17 Signed Impressions: Service Date/Time: January 10:29 - CONCLUSION: Uncomplicated inferior vena cava filter placement as above. Yung Fowler MD Thoracic Spine MRI 01/24/17 Signed Impressions: Service Date/Time: Tuesday, January 24, 2017 22:29 - CONCLUSION: 1. Mild degenerative spondylosis most prominently at T11-L1 with slight effacement of the anterior thecal sac and left lateral recess. No significant neural foraminal stenosis. 2. No acute fracture. Juan Bhakta MD Renal Ultrasound 01/23/17 Signed Impressions: Service Date/Time: Monday, January 23, 2017 08:53 - CONCLUSION: 1. Evidence of chronic parenchymal disease of both kidneys. No obstructive uropathy or other acute abnormality demonstrated. 2. Trace ascites, nonspecific. Angelo Garrido MD Lumbar Spine MRI 01/23/17 Signed Impressions: Service Date/Time: Monday, January 23, 2017 17:01 - CONCLUSION: 1. At L4-5 is a broad-based disc protrusion with severe central canal and lateral recess stenosis and flattening of the exiting right L4 nerve root. 2. L5-S1 there is a disc protrusion and moderate stenosis with flattening of the exiting L5 nerve roots bilaterally. 3. At L3-4 there is a moderate to severe central stenosis and lateral recess stenosis with mild foraminal stenosis. 4. No acute fracture or spondylolisthesis. Trace Holloway MD Lower Extremity Ultrasound 01/23/17 Signed Impressions: Service Date/Time: Monday, January 23, 2017 09:53 - CONCLUSION: Bilateral focal lower extremity DVT involving the posterior tibial veins. Angelo Garrido MD Cervical Spine MRI 01/23/17 Signed Impressions: Service Date/Time: Monday, January 23, 2017 17:01 - CONCLUSION: 1. Multilevel cervical spine degenerative changes as above. 2. Mild degrees of spinal stenosis at C3/C4-C6/C7. No cord compression or cord signal abnormality. 3. Age indeterminate left paracentral/foraminal disc protrusion at C6/C7. 4. Multilevel foraminal stenosis, most severe on the left at C6/C7. Please see individual levels above. 5. No fracture or subluxation of the cervical spine. Angelo Garrido MD Brain MRI 01/23/17 0000 Signed Impressions: Service Date/Time: Monday, January 23, 2017 17:01 - CONCLUSION: 1. No acute stroke or other acute intracranial abnormality demonstrated. 2. Moderate severity chronic white matter changes, nonspecific but most likely related to chronic small vessel disease. 3. Few scattered tiny lacunar infarcts of the brainstem. 4. Given the findings are not entirely specific, clinical evaluation for possible multiple sclerosis recommended. Angelo Garrido MD Knee X-Ray 01/22/172053 Signed Impressions: Service Date/Time: Sunday, January 22, 2017 21:17 - CONCLUSION: 1. Evidence of moderate to large joint effusion. 2. No acute fracture or malalignment. 3. Mild 3 compartment osteoarthritic change. Benjamin Person MD Hip and Pelvis X-Ray 01/22/172053 Signed Impressions: Service Date/Time: Sunday, January 22, 2017 21:10 - CONCLUSION: 1. Mild to moderate degenerative change of both hips with no acute fracture or malalignment. There is flattening and remodeling of the right humeral head. Benjamin Person MD Objective Remarks AAOx3 NAD Clear lungs BL Abdomen soft, NT, ND no edema in lower extremities Procedures IVC filter placement 01/25/2017 LP 01/26/2017 Medications and IVs Current Medications Medications (Trade) Dose Ordered Sig/Rosalia Route Start Time Stop Time Status Last Admin (NS Flush) 2 ml UNSCH PRN IV FLUSH 01/23/17 00:30 02/01/17 05:07 (NS Flush) 2 ml BID IV FLUSH 01/23/17 09:00 02/15/17 20:39 (Tylenol) 650 mg Q4H PRN PO 01/23/17 00:30 02/14/17 20:50 (Zofran Inj) 4 mg Q6H PRN IVP 01/23/17 00:30 02/10/17 06:45 ([place] 5-325 Mg) 1 tab Q4H PRN PO 01/23/17 00:30 02/14/17 12:42 ([place] 7.5-325 Mg) 1 tab Q4H PRN PO 01/23/17 00:30 02/09/17 18:40 (Narcan Inj) 0.4 mg UNSCH PRN IV 01/23/17 00:30 (Edna-Colace) 1 tab BID PO 01/23/17 09:00 02/16/17 08:24 (Milk Of Magnesia Liq) 30 ml Q12H PRN PO 01/23/17 00:30 02/09/17 12:30 (Senokot) 17.2 mg Q12H PRN PO 01/23/17 00:30 02/09/17 12:30 (Dulcolax Supp) 10 mg DAILY PRN RECTAL 01/23/17 00:30 (Tenormin) 25 mg DAILY PO 01/24/17 13:00 Future hold 02/08/17 08:08 (Lipitor) 10 mg HS PO 01/24/17 21:00 02/15/17 20:39 (Catapres) 0.1 mg Q6H PRN PO 01/24/17 18:00 02/16/17 09:19 (Norvasc) 5 mg DAILY PO 01/28/17 09:00 Future hold 02/08/17 08:08 (Morphine Inj) 2 mg Q3H PRN IV PUSH 02/10/17 06:15 02/15/17 23:23 (Brethine Inj) 1 mg UNSCH PRN SQ 02/10/17 20:30 (Pepcid Inj) 20 mg HS IV PUSH 02/10/17 22:45 02/15/17 20:39 (D50w (Vial) Inj) 50 ml UNSCH PRN IV PUSH 02/11/17 05:45 (Glucagon Inj) 1 mg UNSCH PRN OTHER 02/11/17 05:45 (Duoneb Neb) 1 ampule Q2HR NEB PRN NEB 02/11/17 15:00 02/14/17 16:24 Oxacillin Sodium 2 gm/Sodium Chloride 100 ml @ 200 mls/hr Q4H IV 02/13/17 14:00 02/16/17 13:36 (Duoneb Neb) 1 ampule Q6HR NEB NEB 02/14/17 22:00 02/16/17 16:19 (Haldol Inj) 1 mg Q6H PRN IV 02/14/17 17:30 Potassium Chloride 20 meq/ Sodium Chloride 38.5 meq/Sterile Water 1,019.625 ml @ 100 mls/hr [id number] IV 02/15/17 11:00 02/16/17 13:36 (Levemir Inj) 15 units BID SQ 02/15/17 14:30 02/16/17 08:25 (NovoLOG SUPPLEMENTAL SCALE) 1 ACHS SLIDING SCALE SQ 02/15/17 12:00 02/16/17 13:34 (Xarelto) 15 mg BID PO 02/15/17 15:00 02/16/17 08:25 (SoluCORTEF INJ) 50 mg Q8HR IV 02/16/17 15:05 02/16/17 16:03 Urinary Catheter: No Vascular Central Line Catheter: No A/P Problem List: (1) Transverse myelitis ICD Code: G37.3 - Acute transverse myelitis in demyelinating disease of central nervous system Status: Acute Plan: The patient was admitted for suspected transverse myelitis and started on treatment with IV Solu-Medrol 250 mg IV every 6 hours from 01/27 through 02/02. Patient underwent a lumbar puncture on 01/26 and 02/01. CSF culture negative on 01/26, 02/01. Oligoclonal bands negative as well. CSF serum IgG index not elevated. VDRL nonreactive and cryptococcal antigen negative. Brain MRI obtained on 01/23 did not show acute stroke. It did show however few scattered lacunar infarcts of the brainstem. Moderate chronic white matter changes. MRI of the cervical/thoracic spine showed mild spinal stenosis at the level of C3/C4 to C6/C7. No cord compression. RPR negative. Neurology consulted. Dr. Crenshaw evaluated the patient, repeat CT of the brain on 02/10 negative. Continue PT OT. Out of bed with assistance. Sloan catheter removed on 02/15, patient with good urine output. (2) Septic shock ICD Code: A41.9 - Sepsis, unspecified organism; R65.21 - Severe sepsis with septic shock Status: Resolved Plan: Septic shock secondary to supratherapeutic thrombophlebitis of the left upper extremity, status post I&D and excision of portion of cephalic vein. Septic shock resolved status post IV fluid administration as well as IV pressors and hydrocortisone at 100 mg IV every 8 hours for relative adrenal insufficiency. (3) HCAP (healthcare-associated pneumonia) ICD Code: J18.9 - Pneumonia, unspecified organism Plan: Patient went into acute hypoxemic hypercarbic respiratory failure and had to be intubated emergently on 02/10. At that time the patient was cared by the pantographer in the intensive care unit. Diagnostic and therapeutic bronchoscopy was performed of the left lower lobe. It was found that the patient had white mucous plugs which were removed and BAL sent. VQ scan obtained on 02/10 also showed a low probably T4 PE. CT of the chest on showed left lower lobe collapse and consolidation and right lower lobe infiltrate. During the patient's stay in the intensive care unit the patient had the endotracheal tube dislodged and this was advanced by Dr. Hogan and the direct laryngoscopy around 5:30 on 02/11. As part of the supportive treatment the patient was given duo nebs every 6 hours scheduled and when needed. Sputum culture grew MSSA. ID consulted and following the patient managed antibiotics. The patient currently on oxacillin. (4) Acute respiratory failure with hypoxia and hypercarbia ICD Code: J96.01 - Acute respiratory failure with hypoxia; J96.02 - Acute respiratory failure with hypercapnia Status: Resolved Plan: As above (5) Hyperlipidemia ICD Code: E78.5 - Hyperlipidemia, unspecified Status: Chronic Plan: Continue statin. (6) HTN (hypertension) ICD Code: I10 - Essential (primary) hypertension Plan: Blood pressure seems to be slightly elevated. Antihypertensive medications were placed on hold due to the patient's having episodes of hypotension. 02/16 blood pressure still uncontrolled and severely elevated with systolic blood pressure in the 160s. I will increase amlodipine dose to 10 mg by mouth daily and atenolol dose to 50 minutes by mouth daily. (7) DVT of lower extremity, bilateral ICD Code: I82.403 - Acute embolism and thrombosis of unspecified deep veins of lower extremity, bilateral Plan: Patient initially started on heparin drip for treatment of DVT, this was placed on hold for lumbar puncture without suspected traumatic tap. Patient is status post IVC filter which was placed on 01/25/17 and as per documentation the patient had not been on DVT prophylaxis. Last LP was on 02/01. The case was discussed by the pantographer with Dr. Crenshaw from neurology who agreed that he was appropriate to anticoagulate the patient. Ultrasound of the left upper extremity on 02/10 showed occlusive thrombus in the mid cephalic vein and basilic vein. 02/16 IV heparin drip discontinued on 02/15 and the patient transition to ora eemly which he is tolerating well. (8) Diabetes mellitus with hyperglycemia ICD Code: E11.65 - Type 2 diabetes mellitus with hyperglycemia Plan: Blood sugar seems to be stable. Initially treated with insulin drip protocol - DC'd 02/15 Bloos sugars seem to be improving. Continue (9) Hypocalcemia ICD Code: E83.51 - Hypocalcemia Plan: Likely due to nutritional deficiencies since patient was nothing by mouth. The patient is now able to eat a diet. Patient status post replacement with IV calcium chloride and protein corrected calcium now within normal range. (10) Hypernatremia ICD Code: E87.0 - Hyperosmolality and hypernatremia Plan: Likely secondary to dehydration. The patient started half-normal saline plus potassium chloride, however sodium still slightly elevated from 150-151. I will switch IV fluids to 1/4 NS + KCL and continue to monitor BMP every 6 hours. 02/16 sodium trending down with dropped from 150-147. Continue same management as above mentioned. (11) Hypokalemia ICD Code: E87.6 - Hypokalemia Plan: Likely due to nutritional deficiency. Continue to replace orally and monitor BMP. (12) Acute metabolic encephalopathy ICD Code: G93.41 - Metabolic encephalopathy Plan: Metabolic encephalopathy likely multifactorial from sepsis, which is resolving. The patient is more awake and alert and following commands. (13) Quadriparesis ICD Code: G82.50 - Quadriplegia, unspecified Status: Acute Plan: Quadriparesis thought to be secondary to transverse myelitis. (14) BREEZY (acute kidney injury) ICD Code: N17.9 - Acute kidney failure, unspecified Plan: AK eye likely secondary to prerenal azotemia and sepsis. Renal ultrasound obtained on 01/23 did not show any evidence of chronic parenchymal disease of both kidneys. No obstructive uropathy or other acute abnormality demonstrated. Creatinine on admission was 4.09 and it has been slowly trending down to 1.8. Continue IV fluids and continue to monitor BUN/creatinine, avoid nephrotoxins. 02/16 creatinine continues to trend down. Appreciate nephrology recommendations. Assessment and Plan GI prophylaxis with Famotidine On Xarelto drip for treatment of DVT Discharge Planning Okay to transfer out from intensive care unit to the medical floor. Problem Qualifiers (1) Hyperlipidemia: Qualified Codes: E78.5 - Hyperlipidemia, unspecified (2) HTN (hypertension): Qualified Codes: I10 - Essential (primary) hypertension (3) Diabetes mellitus with hyperglycemia: Qualified Codes: E11.65 - Type 2 diabetes mellitus with hyperglycemia Abdelrahman Alcantara MD Feb 16, 2017 17:52
[2017-02-16] MEDS: RESP: ALBUTEROL 2.5 MG/IPRATROPIUM 0.5 MG NEB (PRN) NEB (21:42)
[2017-02-16] MEDS: FAMOTIDINE 20 MG/2 ML VIAL IV PUSH SCH (22:04)
[2017-02-16] MEDS: ATORVASTATIN 10 MG TAB PO SCH (22:05)
[2017-02-17] VITALS (9 sets, daily range): BP systolic 141–178; BP diastolic 92–116; PULSE 80–97; RESP 16–24; TEMP 95.5–96.9; O2SAT 95–98
[2017-02-17] MEDS: ACETAMINOPHEN/HYDROcodone 325 MG/5 MG TAB PO PRN
[2017-02-17] MEDS: POTASSIUM CHLORIDE INJ 20 MEQ, SODIUM CHLORIDE 23.4% INJ 38.5 MEQ in WATER STERILE FOR ... IV SCH ×3 (00:05→10:48)
[2017-02-17] MEDS: cloNIDine HCL 0.1 MG TAB PO PRN (00:08)
[2017-02-17] MEDS: OXACILLIN INJ 2 GM in SODIUM CHLORIDE 0.9% INJ 100 ML IV SCH ×6 (02:00→22:55)
[2017-02-17] MEDS: RESP: ALBUTEROL 2.5 MG/IPRATROPIUM 0.5 MG NEB (SCH) NEB ×4 (04:00→21:30)
[2017-02-17] MEDS: ACETAMINOPHEN/HYDROcodone 325 MG/7.5 MG TAB PO PRN ×3 (04:47→18:46)
[2017-02-17] MEDS: HYDROCORTISONE SOD SUCCINATE 100 MG VIAL IV SCH (06:35)
[2017-02-17] MEDS: INSULIN ASPART SUPPLEMENTAL SCALE SQ SCH ×5 (08:00→21:00)
[2017-02-17 08:15] LABS: MEAN CELL VOLUME 83.2 FL (80.0-100.0); MEAN CORPUSCULAR HGB CONC 32.4 % (32.0-36.0); PLATELET COUNT 228 TH/MM3 (150-450); RED BLOOD COUNT 3.61 MIL/MM3 (4.50-5.90); RED CELL DISTRIBUTION WIDTH 18.9 % (11.6-17.2); REVIEW FLAG FINAL; WHITE BLOOD COUNT 8.2 TH/MM3 (4.0-11.0)
[2017-02-17 08:49] LABS: BICARBONATE 22.9 MEQ/L (21.0-32.0); MAGNESIUM 1.5 MG/DL (1.5-2.5); POTASSIUM 3.5 MEQ/L (3.5-5.1)
[2017-02-17] MEDS: INSULIN DETEMIR 100 UNITS/ML VIAL SQ SCH ×2 (09:00→22:52)
[2017-02-17] MEDS: SODIUM CHLORIDE 0.9% FLUSH 10 ML FLUSH IV FLUSH SCH ×2 (09:00→22:56)
[2017-02-17] MEDS: DOCUSATE SODIUM 50 MG/SENNA 8.6 MG TAB PO SCH ×2 (09:00→21:00)
[2017-02-17 09:05] LABS: CALCIUM-PROTEIN CORRECTED 8.5 MG/DL (8.5-10.1)
[2017-02-17] MEDS: ATENOLOL 25 MG TAB PO SCH (09:36)
[2017-02-17] MEDS: amLODIPine BESYLATE 5 MG TAB PO SCH (09:36)
[2017-02-17] MEDS: RIVAROXABAN 15 MG TAB PO SCH ×2 (09:37→22:53)
--- NOTE | 2017-02-17 14:01 | HHI.PR ---
Subjective Remarks Patient is more awake and alert. Denies chest pain, shortness of breath As per RN report the patient skin erythematous RN reports 1200 cc of urine were obtained after straight catheterization. Sodium is trending down Creatinine improving Him occult positive RN also reports stool is soft dark brown. Objective Vitals Vital Signs Date Time Temp Pulse Resp B/P (MAP) Pulse Ox O2 Delivery O2 Flow Rate FiO2 02/17/17 13:31 96.0 94 24 141/92 (108) 95 02/17/17 10:06 98 21 02/17/17 10:03 95.8 92 16 178/107 (130) 96 02/17/17 05:47 18 02/17/17 04:00 96.8 93 18 170/116 (134) 95 02/17/17 00:00 96.9 80 18 176/103 (127) 98 02/16/17 21:45 96 21 02/16/17 19:54 97.9 82 18 174/104 (127) 97 02/16/17 18:00 90 02/16/17 16:00 89 02/16/17 16:00 97.7 89 20 151/88 (109) 99 I/O 02/16/17 02/16/17 02/16/17 02/17/17 02/17/17 02/17/17 07:00 15:00 23:00 07:00 15:00 23:00 Intake Total 100 ml 100 ml 2392 ml 1100 ml Output Total 1150 ml 1260 ml 25 ml 1200 ml Balance -1050 ml -1160 ml 2367 ml -100 ml Intake Oral 240 ml IV Total 100 ml 100 ml 2152 ml 1100 ml Output Urine Total 1150 ml 1200 ml 1200 ml Drainage Total 0 ml 60 ml 25 ml Bladder Scan Volume Amount 745 ml # Voids 1 4 # Bowel Movements 0 1 Result Diagram: 02/17/17 0649 02/17/17 0649 Imaging Last Impressions Chest X-Ray 02/15/17 0600 Signed Impressions: Service Date/Time: January 06:10 - CONCLUSION: 1. Stable basilar airspace disease and small effusion, left greater than right. Previous left central line has been removed. Trace Holloway MD Upper Extremity Ultrasound 02/10/17 0000 Signed Impressions: Service Date/Time: Friday, February 10, 2017 18:46 - CONCLUSION: Occlusive thrombus in the cephalic and basilic veins. Benjamin Person MD Lung Scan-V Nuclear Medicine 02/10/17 0000 Signed Impressions: Service Date/Time: Friday, February 10, 2017 22:17 - CONCLUSION: Low probability pulmonary embolism. Candido Patton MD Head CT 02/10/17 0000 Signed Impressions: Service Date/Time: Friday, February 10, 2017 23:51 - CONCLUSION: Negative noncontrast CT brain. Candido Patton MD Chest CT 02/10/17 0000 Signed Impressions: Service Date/Time: Friday, February 10, 2017 23:56 - CONCLUSION: Left lower lobe collapse with consolidation. Patchy infiltrates the medial right lower lung. Candido Patton MD Abdomen/Pelvis CT 02/10/17 0000 Signed Impressions: Service Date/Time: Friday, February 10, 2017 23:59 - CONCLUSION: 1. Nonobstructing 12 mm calcified stone lower pole right kidney. 2. Atrophic left kidney with significant cortical thinning. 3. Bilateral fat-containing inguinal hernias, large on the right, and moderate on the left. 4. Consolidative collapse of the left lower lobe. Candido Patton MD Abdomen X-Ray 02/10/17 0000 Signed Impressions: Service Date/Time: Friday, February 10, 2017 08:14 - CONCLUSION: No acute abdominal abnormality is identified. Angelo Allen MD Wrist X-Ray 02/06/17 0000 Signed Impressions: Service Date/Time: Monday, February 06, 2017 12:50 - CONCLUSION: Minimally displaced distal radius and ulnar fractures. Armando Dodd MD Lumbar Puncture Fluoroscopy 02/01/17 0000 Signed Impressions: Service Date/Time: January 09:35 - CONCLUSION: Uncomplicated fluoroscopically guided lumbar puncture. CSF was clear. Nabeel Peralta MD Head Magnetic Resonance Angiography 01/27/17 0000 Signed Impressions: Service Date/Time: Friday, January 27, 2017 10:33 - CONCLUSION: No intracranial vascular abnormality is identified. There is no aneurysm visualized. Angelo Allen MD IVC Filter Placement X-Ray 01/25/17 0000 Signed Impressions: Service Date/Time: January 10:29 - CONCLUSION: Uncomplicated inferior vena cava filter placement as above. Yung Fowler MD Thoracic Spine MRI 01/24/17 Signed Impressions: Service Date/Time: Tuesday, January 24, 2017 22:29 - CONCLUSION: 1. Mild degenerative spondylosis most prominently at T11-L1 with slight effacement of the anterior thecal sac and left lateral recess. No significant neural foraminal stenosis. 2. No acute fracture. Juan Bhakta MD Renal Ultrasound 01/23/17 Signed Impressions: Service Date/Time: Monday, January 23, 2017 08:53 - CONCLUSION: 1. Evidence of chronic parenchymal disease of both kidneys. No obstructive uropathy or other acute abnormality demonstrated. 2. Trace ascites, nonspecific. Angelo Garrido MD Lumbar Spine MRI 01/23/17 Signed Impressions: Service Date/Time: Monday, January 23, 2017 17:01 - CONCLUSION: 1. At L4-5 is a broad-based disc protrusion with severe central canal and lateral recess stenosis and flattening of the exiting right L4 nerve root. 2. L5-S1 there is a disc protrusion and moderate stenosis with flattening of the exiting L5 nerve roots bilaterally. 3. At L3-4 there is a moderate to severe central stenosis and lateral recess stenosis with mild foraminal stenosis. 4. No acute fracture or spondylolisthesis. Trace Holloway MD Lower Extremity Ultrasound 01/23/17 Signed Impressions: Service Date/Time: Monday, January 23, 2017 09:53 - CONCLUSION: Bilateral focal lower extremity DVT involving the posterior tibial veins. Angelo Garrido MD Cervical Spine MRI 01/23/17 Signed Impressions: Service Date/Time: Monday, January 23, 2017 17:01 - CONCLUSION: 1. Multilevel cervical spine degenerative changes as above. 2. Mild degrees of spinal stenosis at C3/C4-C6/C7. No cord compression or cord signal abnormality. 3. Age indeterminate left paracentral/foraminal disc protrusion at C6/C7. 4. Multilevel foraminal stenosis, most severe on the left at C6/C7. Please see individual levels above. 5. No fracture or subluxation of the cervical spine. Angelo Garrido MD Brain MRI 01/23/17 Signed Impressions: Service Date/Time: Monday, January 23, 2017 17:01 - CONCLUSION: 1. No acute stroke or other acute intracranial abnormality demonstrated. 2. Moderate severity chronic white matter changes, nonspecific but most likely related to chronic small vessel disease. 3. Few scattered tiny lacunar infarcts of the brainstem. 4. Given the findings are not entirely specific, clinical evaluation for possible multiple sclerosis recommended. Angelo Garrido MD Knee X-Ray 01/22/172053 Signed Impressions: Service Date/Time: Sunday, January 22, 2017 21:17 - CONCLUSION: 1. Evidence of moderate to large joint effusion. 2. No acute fracture or malalignment. 3. Mild 3 compartment osteoarthritic change. Benjamin Person MD Hip and Pelvis X-Ray [id number]/22/172053 Signed Impressions: Service Date/Time: Sunday, January 22, 2017 21:10 - CONCLUSION: 1. Mild to moderate degenerative change of both hips with no acute fracture or malalignment. There is flattening and remodeling of the right humeral head. Benjamin Person MD Objective Remarks AAOx3 NAD Clear lungs BL Abdomen soft, NT, ND +2 edema in lower extremities bilaterally. Procedures IVC filter placement 01/25/2017 LP 01/26/2017 Medications and IVs Current Medications Medications (Trade) Dose Ordered Sig/Rosalia Route Start Time Stop Time Status Last Admin (NS Flush) 2 ml UNSCH PRN IV FLUSH 01/23/17 00:30 02/01/17 05:07 (NS Flush) 2 ml BID IV FLUSH 01/23/17 09:00 02/16/17 22:07 (Tylenol) 650 mg Q4H PRN PO 01/23/17 00:30 02/14/17 20:50 (Zofran Inj) 4 mg Q6H PRN IVP 01/23/17 00:30 02/10/17 06:45 (Castana 5-325 Mg) 1 tab Q4H PRN PO 01/23/17 00:30 02/17/17 00:00 (Castana 7.5-325 Mg) 1 tab Q4H PRN PO 01/23/17 00:30 02/17/17 09:36 (Narcan Inj) 0.4 mg UNSCH PRN IV 01/23/17 00:30 (Edna-Colace) 1 tab BID PO 01/23/17 09:00 02/16/17 22:05 (Milk Of Magnesia Liq) 30 ml Q12H PRN PO 01/23/17 00:30 02/09/17 12:30 (Senokot) 17.2 mg Q12H PRN PO 01/23/17 00:30 02/09/17 12:30 (Dulcolax Supp) 10 mg DAILY PRN RECTAL 01/23/17 00:30 (Tenormin) 25 mg DAILY PO 01/24/17 13:00 Future hold 02/17/17 09:36 (Lipitor) 10 mg HS PO 01/24/17 21:00 02/16/17 22:05 (Catapres) 0.1 mg Q6H PRN PO 01/24/17 18:00 02/17/17 00:08 (Norvasc) 5 mg DAILY PO 01/28/17 09:00 Future hold 02/17/17 09:36 (Morphine Inj) 2 mg Q3H PRN IV PUSH 02/10/17 06:15 02/15/17 23:23 (Brethine Inj) 1 mg UNSCH PRN SQ 02/10/17 20:30 (Pepcid Inj) 20 mg HS IV PUSH 02/10/17 22:45 02/16/17 22:04 (D50w (Vial) Inj) 50 ml UNSCH PRN IV PUSH 02/11/17 05:45 (Glucagon Inj) 1 mg UNSCH PRN OTHER 02/11/17 05:45 (Duoneb Neb) 1 ampule Q2HR NEB PRN NEB 02/11/17 15:00 02/16/17 21:42 Oxacillin Sodium 2 gm/Sodium Chloride 100 ml @ 200 mls/hr Q4H IV 02/13/17 14:00 02/17/17 10:48 (Duoneb Neb) 1 ampule Q6HR NEB NEB 02/14/17 22:00 02/17/17 10:05 (Haldol Inj) 1 mg Q6H PRN IV 02/14/17 17:30 (NovoLOG SUPPLEMENTAL SCALE) 1 ACHS SLIDING SCALE SQ 02/15/17 12:00 02/16/17 13:34 (Xarelto) 15 mg BID PO 02/15/17 15:00 02/17/17 09:37 (SoluCORTEF INJ) 50 mg Q8HR IV 02/16/17 15:05 02/17/17 06:35 (Levemir Inj) 5 units BID SQ 02/17/17 21:00 (K-Phos Neutral) 250 mg Q8HR PO 02/17/17 14:00 UNV (KCl) 20 meq ONCE ONCE PO 02/17/17 14:00 02/17/17 14:01 UNV (Flomax) 0.4 mg Q12HR PO 02/17/17 14:00 UNV A/P Problem List: (1) Transverse myelitis ICD Code: G37.3 - Acute transverse myelitis in demyelinating disease of central nervous system Status: Acute (2) Septic shock ICD Code: A41.9 - Sepsis, unspecified organism; R65.21 - Severe sepsis with septic shock Status: Resolved (3) HCAP (healthcare-associated pneumonia) ICD Code: J18.9 - Pneumonia, unspecified organism (4) Acute respiratory failure with hypoxia and hypercarbia ICD Code: J96.01 - Acute respiratory failure with hypoxia; J96.02 - Acute respiratory failure with hypercapnia Status: Resolved (5) Hyperlipidemia ICD Code: E78.5 - Hyperlipidemia, unspecified Status: Chronic (6) HTN (hypertension) ICD Code: I10 - Essential (primary) hypertension (7) DVT of lower extremity, bilateral ICD Code: I82.403 - Acute embolism and thrombosis of unspecified deep veins of lower extremity, bilateral (8) Diabetes mellitus with hyperglycemia ICD Code: E11.65 - Type 2 diabetes mellitus with hyperglycemia (9) Hypocalcemia ICD Code: E83.51 - Hypocalcemia (10) Hypernatremia ICD Code: E87.0 - Hyperosmolality and hypernatremia (11) Hypokalemia ICD Code: E87.6 - Hypokalemia (12) Acute metabolic encephalopathy ICD Code: G93.41 - Metabolic encephalopathy (13) Quadriparesis ICD Code: G82.50 - Quadriplegia, unspecified Status: Acute (14) BREEZY (acute kidney injury) ICD Code: N17.9 - Acute kidney failure, unspecified Assessment and Plan (1) Transverse myelitis Plan: The patient was admitted for suspected transverse myelitis and started on treatment with IV Solu-Medrol 250 mg IV every 6 hours from 01/27 through 02/02. Patient underwent a lumbar puncture on 01/26 and 02/01. CSF culture negative on 01/26, 02/01. Oligoclonal bands negative as well. CSF serum IgG index not elevated. VDRL nonreactive and cryptococcal antigen negative. Brain MRI obtained on 01/23 did not show acute stroke. It did show however few scattered lacunar infarcts of the brainstem. Moderate chronic white matter changes. MRI of the cervical/thoracic spine showed mild spinal stenosis at the level of C3/C4 to C6/C7. No cord compression. RPR negative. Neurology consulted. Dr. Crenshaw evaluated the patient, repeat CT of the brain on 02/10 negative. Continue PT OT. Out of bed with assistance. 02/17 Sloan catheter removed on 02/15, patient was having good urine output up until today when he complained of lower abdominal pain and was straight catheter removing 1200 cc of urine. (2) Septic shock Plan: Septic shock secondary to suppurative thrombophlebitis thrombophlebitis of the left upper extremity, status post I&D and excision of portion of cephalic vein. Septic shock resolved status post IV fluid administration as well as IV pressors and hydrocortisone at 100 mg IV every 8 hours for relative adrenal insufficiency. (3) HCAP (healthcare-associated pneumonia) Plan: Patient went into acute hypoxemic hypercarbic respiratory failure and had to be intubated emergently on 02/10. At that time the patient was cared by the emergency room technician in the intensive care unit. Diagnostic and therapeutic bronchoscopy was performed of the left lower lobe. It was found that the patient had white mucous plugs which were removed and BAL sent. VQ scan obtained on 02/10 also showed a low probably T4 PE. CT of the chest on showed left lower lobe collapse and consolidation and right lower lobe infiltrate. During the patient's stay in the intensive care unit the patient had the endotracheal tube dislodged and this was advanced by Dr. Hogan and the direct laryngoscopy around 5:30 on 02/11. As part of the supportive treatment the patient was given duo nebs every 6 hours scheduled and when needed. Sputum culture grew MSSA. ID consulted and following the patient managed antibiotics. The patient currently on oxacillin. (4) Acute respiratory failure with hypoxia and hypercarbia Plan: As above (5) Hyperlipidemia Plan: Continue statin. (6) HTN (hypertension) Plan: Blood pressure seems to be slightly elevated. Antihypertensive medications were placed on hold due to the patient's having episodes of hypotension. 02/16 blood pressure still uncontrolled and severely elevated with systolic blood pressure in the 160s. I will increase amlodipine dose to 10 mg by mouth daily and atenolol dose to 50 minutes by mouth daily. 02/17 BP seems to slightly improved. Will continue to monitor. (7) DVT of lower extremity, bilateral Plan: Patient initially started on heparin drip for treatment of DVT, this was placed on hold for lumbar puncture without suspected traumatic tap. Patient is status post IVC filter which was placed on 01/25/17 and as per documentation the patient had not been on DVT prophylaxis. Last LP was on 02/01. The case was discussed by the emergency room technician with Dr. Crenshaw from neurology who agreed that he was appropriate to anticoagulate the patient. Ultrasound of the left upper extremity on 02/10 showed occlusive thrombus in the mid cephalic vein and basilic vein. 02/16 IV heparin drip discontinued on 02/15 and the patient transition to Xarelto. 02/17 Hold Xarelto for now given Hemoccult positive stool. Consult GI for EGD/ colonoscopy. I will start the patient on heparin drip and monitor hemoglobin every 6 hours, if cleared by GI and will resume Xarelto. (8) Diabetes mellitus with hyperglycemia ICD Code: E11.65 - Type 2 diabetes mellitus with hyperglycemia Plan: Blood sugar seems to be stable. Initially treated with insulin drip protocol - DC'd 02/15 02/17 patient had episode of hypoglycemia today. Will decrease insulin Levemir 25 mg subcutaneously twice a day and continue SSI with insulin NovoLog. (9) Hypocalcemia Plan: Likely due to nutritional deficiencies since patient was nothing by mouth. The patient is now able to eat a diet. Patient status post replacement with IV calcium chloride and protein corrected calcium now within normal range. (10) Hypernatremia Plan: Likely secondary to dehydration. The patient started half-normal saline plus potassium chloride, however sodium still slightly elevated from 150-151. I will switch IV fluids to 1/4 NS + KCL and continue to monitor BMP every 6 hours. 02/16 sodium trending down with dropped from 150-147. Continue same management as above mentioned. 02/17 discontinue hypertonic saline since sodium is down to 144 and patient is having good oral intake of fluids. Encouraged by mouth fluids intake to patient. (11) Hypokalemia ICD Code: E87.6 - Hypokalemia Plan: Likely due to nutritional deficiency. Continue to replace orally and monitor BMP. 02/17 resolved. I will order an extra dose of 20 mEq of potassium chloride to get the potassium closer to 4 (12) Acute metabolic encephalopathy Plan: Metabolic encephalopathy likely multifactorial from sepsis, which is resolving. The patient is more awake and alert and following commands. (13) Quadriparesis Plan: Quadriparesis thought to be secondary to transverse myelitis. (14) BREEZY (acute kidney injury) Plan: [place] eye likely secondary to prerenal azotemia and sepsis. Renal ultrasound obtained on 01/23 did not show any evidence of chronic parenchymal disease of both kidneys. No obstructive uropathy or other acute abnormality demonstrated. Creatinine on admission was 4.09 and it has been slowly trending down to 1.8. Continue IV fluids and continue to monitor BUN/creatinine, avoid nephrotoxins. 02/16 creatinine continues to trend down. Appreciate nephrology recommendations. 02/17 I will start the patient on oral Bumex given fluid overload and edema. GI prophylaxis with Famotidine Hold Xarelto, continue SCDs. Discharge Planning Pending GI consult. Problem Qualifiers (1) Hyperlipidemia: Qualified Codes: E78.5 - Hyperlipidemia, unspecified (2) HTN (hypertension): Qualified Codes: I10 - Essential (primary) hypertension (3) Diabetes mellitus with hyperglycemia: Qualified Codes: E11.65 - Type 2 diabetes mellitus with hyperglycemia Abdelrahman Alcantara MD Feb 17, 2017 14:01
[2017-02-17] MEDS ORDERED: POTASSIUM CHLORIDE 10 MEQ CONTROLLED RELEASE TAB PO ONE (15:00)
[2017-02-17] MEDS: TAMSULOSIN HCL 0.4 MG CAP PO SCH ×2 (15:53→22:54)
--- NOTE | 2017-02-17 15:59 | PD.CONS ---
HPI History of Present Illness This is a 62 year old male who was admitted for suspected transverse myelitis. GI was consulted for evaluation of anemia and Hemoccult positive stools. Never has had Colonoscopy or EGD. Reports intermittent abdominal pain all over abdomen. Has periodic episodes of nausea and vomiting. Soft dark brown stool was noted. (Kortney Rojas) PFSH Past Medical History Gouty arthritis Chronic kidney disease secondary to multiple kidney stones Past Surgical History Rhinoplasty Kidney stents, 2007 (Kortney Rojas) Coded Allergies: levofloxacin (Verified Allergy, Severe, 01/22/17) Medications Current Medications Medications (Trade) Dose Ordered Sig/Rosalia Route PRN Reason Start Time Stop Time Status Last Admin Dose Admin Sodium Chloride (NS Flush) 2 ml UNSCH PRN IV FLUSH FLUSH AFTER USING IV ACCESS 01/23/17 00:30 02/01/17 05:07 Sodium Chloride (NS Flush) 2 ml BID IV FLUSH 01/23/17 09:00 02/16/17 22:07 Acetaminophen (Tylenol) 650 mg Q4H PRN PO TEMP > 100.4 01/23/17 00:30 02/14/17 20:50 Ondansetron HCl (Zofran Inj) 4 mg Q6H PRN IVP NAUSEA OR VOMITING 01/23/17 00:30 02/10/17 06:45 Acetaminophen/ Hydrocodone Bitart ([place] 5-325 Mg) 1 tab Q4H PRN PO PAIN SCALE 3 TO 5 01/23/17 00:30 02/17/17 00:00 Acetaminophen/ Hydrocodone Bitart ([place] 7.5-325 Mg) 1 tab Q4H PRN PO PAIN SCALE 6 TO 10 01/23/17 00:30 02/17/17 09:36 Naloxone HCl (Narcan Inj) 0.4 mg UNSCH PRN IV SEE LABEL COMMENTS 01/23/17 00:30 Senna/Docusate Sodium ([place]-Colace) 1 tab BID PO 01/23/17 09:00 02/16/17 22:05 Magnesium Hydroxide (Milk Of Magnesia Liq) 30 ml Q12H PRN PO MILD - MODERATE CONSTIPATION 01/23/17 00:30 02/09/17 12:30 Sennosides (Senokot) 17.2 mg Q12H PRN PO MODERATE - SEVERE CONSTIPATION 01/23/17 00:30 02/09/17 12:30 Bisacodyl (Dulcolax Supp) 10 mg DAILY PRN RECTAL SEVERE CONSITIPATION 01/23/17 00:30 Atenolol (Tenormin) 25 mg DAILY PO 01/24/17 13:00 Future hold 02/17/17 09:36 Atorvastatin Calcium (Lipitor) 10 mg HS PO 01/24/17 21:00 02/16/17 22:05 Clonidine (Catapres) 0.1 mg Q6H PRN PO SBP> OR = 180, DBP> OR = 100 01/24/17 18:00 02/17/17 00:08 Amlodipine Besylate (Norvasc) 5 mg DAILY PO 01/28/17 09:00 Future hold 02/17/17 09:36 Morphine Sulfate (Morphine Inj) 2 mg Q3H PRN IV PUSH Pain 4 - 10, when NPO 02/10/17 06:15 02/15/17 23:23 Terbutaline Sulfate (Brethine Inj) 1 mg UNSCH PRN SQ For Extravasation 02/10/17 20:30 Famotidine (Pepcid Inj) 20 mg HS IV PUSH 02/10/17 22:45 02/16/17 22:04 Dextrose (D50w (Vial) Inj) 50 ml UNSCH PRN IV PUSH HYPOGLYCEMIA-SEE COMMENTS 02/11/17 05:45 Glucagon (Glucagon Inj) 1 mg UNSCH PRN OTHER HYPOGLYCEMIA-SEE COMMENTS 02/11/17 05:45 Albuterol/ Ipratropium (Duoneb Neb) 1 ampule Q2HR NEB PRN NEB SHORTNESS OF BREATH 02/11/17 15:00 02/16/17 21:42 Oxacillin Sodium 2 gm/Sodium Chloride 100 ml @ 200 mls/hr Q4H IV 02/13/17 14:00 02/17/17 10:48 Albuterol/ Ipratropium (Duoneb Neb) 1 ampule Q6HR NEB NEB 02/14/17 22:00 02/17/17 10:05 Haloperidol Lactate (Haldol Inj) 1 mg Q6H PRN IV Agitation 02/14/17 17:30 Insulin Aspart (NovoLOG SUPPLEMENTAL SCALE) 1 ACHS SLIDING SCALE SQ 02/15/17 12:00 02/16/17 13:34 Rivaroxaban (Xarelto) 15 mg BID PO 02/15/17 15:00 02/17/17 09:37 Insulin Detemir (Levemir Inj) 5 units BID SQ 02/17/17 21:00 Potassium Phos/ Sodium Phos (K-Phos Neutral) 250 mg Q8HR PO 02/17/17 15:00 Tamsulosin HCl (Flomax) 0.4 mg Q12HR PO 02/17/17 15:00 Family History Mother: diabetes, asthma, hypertension, heart disease Social History Tobacco, denies Alcohol, none in past 9-10 years Illicit Drugs, denies . (Kortney Rojas) Review of Systems Gastrointestinal: COMPLAINS OF: Abdominal pain, DENIES: Black stools, Bloody stools, Constipation, Diarrhea, Nausea, Vomiting, Difficulty Swallowing, Anorexia, Odynophagia, Swelling of Abdomen, Heartburn, Hematemesis (Kortney Rojas) GI Exam Vitals I&O Vital Signs Date Time Temp Pulse Resp B/P (MAP) Pulse Ox O2 Delivery O2 Flow Rate FiO2 02/17/17 13:31 96.0 94 24 141/92 (108) 95 02/17/17 10:06 98 21 02/17/17 10:03 95.8 92 16 178/107 (130) 96 02/17/17 05:47 18 02/17/17 04:00 96.8 93 18 170/116 (134) 95 02/17/17 00:00 96.9 80 18 176/103 (127) 98 02/16/17 21:45 96 21 02/16/17 19:54 97.9 82 18 174/104 (127) 97 02/16/17 18:00 90 02/16/17 16:00 89 02/16/17 16:00 97.7 89 20 151/88 (109) 99 I/O 02/16/17 02/16/17 02/16/17 02/17/17 02/17/17 02/17/17 07:00 15:00 23:00 07:00 15:00 23:00 Intake Total 100 ml 100 ml 2392 ml 1400 ml Output Total 1150 ml 1260 ml 25 ml 1200 ml Balance -1050 ml -1160 ml 2367 ml 200 ml Intake Oral 240 ml IV Total 100 ml 100 ml 2152 ml 1400 ml Output Urine Total 1150 ml 1200 ml 1200 ml Drainage Total 0 ml 60 ml 25 ml Bladder Scan Volume Amount 745 ml # Voids 1 4 # Bowel Movements 0 1 Imaging Last Impressions Chest X-Ray 02/15/17 0600 Signed Impressions: Service Date/Time: January 06:10 - CONCLUSION: 1. Stable basilar airspace disease and small effusion, left greater than right. Previous left central line has been removed. Trace Holloway MD Upper Extremity Ultrasound 02/10/17 0000 Signed Impressions: Service Date/Time: Friday, February 10, 2017 18:46 - CONCLUSION: Occlusive thrombus in the cephalic and basilic veins. Benjamin Person MD Lung Scan- Nuclear Medicine 02/10/17 0000 Signed Impressions: Service Date/Time: Friday, February 10, 2017 22:17 - CONCLUSION: Low probability pulmonary embolism. Candido Patton MD Head CT 02/10/17 0000 Signed Impressions: Service Date/Time: Friday, February 10, 2017 23:51 - CONCLUSION: Negative noncontrast CT brain. Candido Patton MD Chest CT 02/10/17 0000 Signed Impressions: Service Date/Time: Friday, February 10, 2017 23:56 - CONCLUSION: Left lower lobe collapse with consolidation. Patchy infiltrates the medial right lower lung. Candido Patton MD Abdomen/Pelvis CT 02/10/17 0000 Signed Impressions: Service Date/Time: Friday, February 10, 2017 23:59 - CONCLUSION: 1. Nonobstructing 12 mm calcified stone lower pole right kidney. 2. Atrophic left kidney with significant cortical thinning. 3. Bilateral fat-containing inguinal hernias, large on the right, and moderate on the left. 4. Consolidative collapse of the left lower lobe. Candido Patton MD Abdomen X-Ray 02/10/17 0000 Signed Impressions: Service Date/Time: Friday, February 10, 2017 08:14 - CONCLUSION: No acute abdominal abnormality is identified. Angelo Allen MD Wrist X-Ray 02/06/17 0000 Signed Impressions: Service Date/Time: Monday, February 06, 2017 12:50 - CONCLUSION: Minimally displaced distal radius and ulnar fractures. Armando Dodd MD Lumbar Puncture Fluoroscopy 02/01/17 Signed Impressions: Service Date/Time: January 09:35 - CONCLUSION: Uncomplicated fluoroscopically guided lumbar puncture. CSF was clear. Nabeel Peralta MD Head Magnetic Resonance Angiography 01/27/17 Signed Impressions: Service Date/Time: Friday, January 27, 2017 10:33 - CONCLUSION: No intracranial vascular abnormality is identified. There is no aneurysm visualized. Angelo Allen MD IVC Filter Placement X-Ray 01/25/17 Signed Impressions: Service Date/Time: January 10:29 - CONCLUSION: Uncomplicated inferior vena cava filter placement as above. Yung Fowler MD Thoracic Spine MRI 01/24/17 Signed Impressions: Service Date/Time: Tuesday, January 24, 2017 22:29 - CONCLUSION: 1. Mild degenerative spondylosis most prominently at T11-L1 with slight effacement of the anterior thecal sac and left lateral recess. No significant neural foraminal stenosis. 2. No acute fracture. Juan Bhakta MD Renal Ultrasound 01/23/17 Signed Impressions: Service Date/Time: Monday, January 23, 2017 08:53 - CONCLUSION: 1. Evidence of chronic parenchymal disease of both kidneys. No obstructive uropathy or other acute abnormality demonstrated. 2. Trace ascites, nonspecific. Angelo Garrido MD Lumbar Spine MRI 01/23/17 Signed Impressions: Service Date/Time: Monday, January 23, 2017 17:01 - CONCLUSION: 1. At L4-5 is a broad-based disc protrusion with severe central canal and lateral recess stenosis and flattening of the exiting right L4 nerve root. 2. L5-S1 there is a disc protrusion and moderate stenosis with flattening of the exiting L5 nerve roots bilaterally. 3. At L3-4 there is a moderate to severe central stenosis and lateral recess stenosis with mild foraminal stenosis. 4. No acute fracture or spondylolisthesis. Trace Holloway MD Lower Extremity Ultrasound 01/23/17 Signed Impressions: Service Date/Time: Monday, January 23, 2017 09:53 - CONCLUSION: Bilateral focal lower extremity DVT involving the posterior tibial veins. Angelo Garrido MD Cervical Spine MRI 01/23/17 0000 Signed Impressions: Service Date/Time: Monday, January 23, 2017 17:01 - CONCLUSION: 1. Multilevel cervical spine degenerative changes as above. 2. Mild degrees of spinal stenosis at C3/C4-C6/C7. No cord compression or cord signal abnormality. 3. Age indeterminate left paracentral/foraminal disc protrusion at C6/C7. 4. Multilevel foraminal stenosis, most severe on the left at C6/C7. Please see individual levels above. 5. No fracture or subluxation of the cervical spine. Angelo Garrido MD Brain MRI 01/23/17 0000 Signed Impressions: Service Date/Time: Monday, January 23, 2017 17:01 - CONCLUSION: 1. No acute stroke or other acute intracranial abnormality demonstrated. 2. Moderate severity chronic white matter changes, nonspecific but most likely related to chronic small vessel disease. 3. Few scattered tiny lacunar infarcts of the brainstem. 4. Given the findings are not entirely specific, clinical evaluation for possible multiple sclerosis recommended. Angelo Garrido MD Knee X-Ray 01/22/[id number] Signed Impressions: Service Date/Time: Sunday, January 22, 2017 21:17 - CONCLUSION: 1. Evidence of moderate to large joint effusion. 2. No acute fracture or malalignment. 3. Mild 3 compartment osteoarthritic change. Benjamin Person MD Hip and Pelvis X-Ray [id number]/22/[id number] Signed Impressions: Service Date/Time: Sunday, January 22, 2017 21:10 - CONCLUSION: 1. Mild to moderate degenerative change of both hips with no acute fracture or malalignment. There is flattening and remodeling of the right humeral head. Benjamin Person MD Laboratory Test 02/17/17 06:49 White Blood Count 8.2 TH/MM3 Red Blood Count 3.61 MIL/MM3 Hemoglobin 9.7 GM/DL Hematocrit 30.0 % Mean Corpuscular Volume 83.2 FL Mean Corpuscular Hemoglobin 27.0 PG Mean Corpuscular Hemoglobin Concent 32.4 % Red Cell Distribution Width 18.9 % Platelet Count 228 TH/MM3 Mean Platelet Volume 8.5 FL Blood Urea Nitrogen 22 MG/DL Creatinine 1.22 MG/DL Random Glucose 61 MG/DL Total Protein 5.2 GM/DL Calcium Level 7.4 MG/DL Phosphorus Level 2.3 MG/DL Magnesium Level 1.5 MG/DL Sodium Level 144 MEQ/L Potassium Level 3.5 MEQ/L Chloride Level 113 MEQ/L Carbon Dioxide Level 22.9 MEQ/L Anion Gap 8 MEQ/L Estimat Glomerular Filtration Rate 60 ML/MIN Protein Corrected Calcium 8.5 MG/DL Date/Time Source Procedure Growth Status 02/15/17 04:45 Blood Peripheral Aerobic Blood Culture - Preliminary NO GROWTH IN 2 DAYS Resulted 02/15/17 04:45 Blood Peripheral Anaerobic Blood Culture - Preliminary NO GROWTH IN 2 DAYS Resulted 02/01/17 09:55 Cerebral Spinal Fluid Lumbar Puncture Fungal Smear - Final NO FUNGAL ELEMENTS SEEN. Resulted 02/01/17 09:55 Cerebral Spinal Fluid Lumbar Puncture Fungal Culture - Preliminary NO GROWTH IN 2 WEEKS Resulted 02/17/17 05:55 Stool Stool Stool Occult Blood (GREGORY) - Final HEMOCCULT POSITIVE Complete 02/11/17 02:30 Sputum Endotracheal Gram Stain - Final Complete 02/11/17 02:30 Sputum Culture - Final Staphylococcus Aureus Complete 02/11/17 12:20 Urine Catheterized Urine Urine Culture - Final NO GROWTH IN 48 HOURS. Complete 02/11/17 09:10 Abscess Arm Acid Fast Stain - Final NO ACID FAST BACILLI SEEN Resulted 02/11/17 09:10 Abscess Arm Mycobacterial Culture Pending Resulted Physical Examination HEENT: Normocephalic; atraumatic; no jaundice. NECK: Neck is supple CARDIAC: RRR with no murmur gallop or rubs. ABDOMEN: Soft, nondistended, nontender; bowel sounds are present. EXTREMITIES: +2 BLE edema SKIN: Normal; no rash; no jaundice. [employer]: Alert. Somnolent. (Kortney Rojas) Assessment and Plan Plan ASSESSMENT: - Anemia, Hemoccult positive stools. 9.12/17. Dark brown soft stools noted. Has intermittent abdominal pain. Never had EGD/Colonoscopy. - DVT LE, bilateral. On Xarelto (on hold). Started on Heparin gtt. - Transverse myelitis, per attending - HTN, DM, per attending. PLAN: - Consider EGD/Colonoscopy Sunday - Monitor HH, transfuse as necessary - Supportive care - Further recommendations to follow based on results of above. Patient seen and examined by Dr. Chopra and myself and this note is written on his behalf. (Kortney Rojas) Plan Patient was seen and examined, agree with above-noted, we will do an endoscopy and colonoscopy to rule out reason for anemia (Donald Chopra MD) Kortney Rojas Feb 17, 2017 15:59 Donald Chopra MD Feb 18, 2017 08:52
--- NOTE | 2017-02-17 16:27 | HHI.NPPN ---
Subjective History of Present Illness 61-year-old with history of urinary stone Additional Remarks Patient is feeling better Review of Systems General Constitutional: Fatigue Objective Data Data 02/17/17 02/18/17 19:00 07:00 Intake Total 1400 ml Output Total 1200 ml Balance 200 ml IV Total 1400 ml Output Urine Total 1200 ml Bladder Scan Volume Amount 745 ml Vital Signs Date Time Temp Pulse Resp B/P (MAP) Pulse Ox O2 Delivery O2 Flow Rate FiO2 02/17/17 13:31 96.0 94 24 141/92 (108) 95 02/17/17 10:06 98 21 02/17/17 10:03 95.8 92 16 178/107 (130) 96 02/17/17 05:47 18 02/17/17 04:00 96.8 93 18 170/116 (134) 95 02/17/17 00:00 96.9 80 18 176/103 (127) 98 02/16/17 21:45 96 21 02/16/17 19:54 97.9 82 18 174/104 (127) 97 02/16/17 18:00 90 -: 02/17/17 0649 02/17/17 0649 Microbiology 02/17/17 Stool Occult Blood (GREGORY) - Final, Complete HEMOCCULT POSITIVE Physical Exam Neck Neck Exam: Neck Supple Pulmonary Resp Exam: Clear Bilaterally, Breath Sounds Equal Cardiology CV Exam: Regular, Normal Sinus Rhythm Gastrointestinal/Abdomen GI Exam: Soft, Non-Tender, Bowel Sounds Present Extremeties Extremities Exam: Trace Edema Neurologic Neuro Exam: Sedated Assessment/Plan Problem List: (1) Acute renal failure ICD Codes: N17.9 - Acute kidney failure, unspecified Status: Acute Plan: Patient developed Hypotension,sepsis staph aureus respiratory failure and increase WBC. Had aspiration pneumonia, developed sepsis with ARF again creatinine declined slightly post hydration BREEZY resolving - Creatinine 1.2 today. Episode of urinary retention earlier - 1.2L UOP after striaght cath. Flomax started. Continue to monitor for signs of urinary retention - may need palmer if further issues. IVFs held with concern for volume overload. Patient is tolerating PO intake. On Vanco follow levels Follow the urine out put and BMP. Heme + stools - EGD/Colonoscopy Sunday. Phosphorus repleted earlier today. (2) CKD (chronic kidney disease) stage 3, GFR 30-59 ml/min ICD Codes: N18.3 - Chronic kidney disease, stage 3 (moderate) Status: Chronic Plan: Ultrasound revealed chronic kidney disease there is no kidney stones (3) Diabetes ICD Codes: E11.9 - Type 2 diabetes mellitus without complications Plan: Continue to monitor (4) Distal end of ulna fracture, closed ICD Codes: S52.609A - Unspecified fracture of lower end of unspecified ulna, initial encounter for closed fracture Status: Acute Plan: Orthopedic is following Problem Qualifiers (1) Acute renal failure: Qualified Codes: N17.9 - Acute kidney failure, unspecified Nabeel Singer MD Feb 17, 2017 16:26
[2017-02-17] MEDS: POTASSIUM PHOSPHATE/SODIUM PHOSPHATE 250 MG TAB PO SCH ×2 (17:54→22:56)
[2017-02-17] MEDS: FAMOTIDINE 20 MG/2 ML VIAL IV PUSH SCH (22:54)
[2017-02-17] MEDS: ATORVASTATIN 10 MG TAB PO SCH (22:54)
[2017-02-18] VITALS (12 sets, daily range): BP systolic 124–161; BP diastolic 69–97; PULSE 73–91; RESP 18–19; TEMP 95.7–98.2; O2SAT 94–98
[2017-02-18] MEDS: ACETAMINOPHEN/HYDROcodone 325 MG/7.5 MG TAB PO PRN ×2 (00:13→15:55)
[2017-02-18] MEDS: OXACILLIN INJ 2 GM in SODIUM CHLORIDE 0.9% INJ 100 ML IV SCH ×6 (02:42→22:00)
[2017-02-18] MEDS: RESP: ALBUTEROL 2.5 MG/IPRATROPIUM 0.5 MG NEB (SCH) NEB ×4 (04:00→21:17)
[2017-02-18] MEDS: POTASSIUM PHOSPHATE/SODIUM PHOSPHATE 250 MG TAB PO SCH ×3 (06:00→22:00)
[2017-02-18 06:36] LABS: BICARBONATE 22.8 MEQ/L (21.0-32.0); CALCIUM-PROTEIN CORRECTED 8.5 MG/DL (8.5-10.1); MAGNESIUM 1.6 MG/DL (1.5-2.5); POTASSIUM 4.7 MEQ/L (3.5-5.1); TOTAL BILIRUBIN ADULT 0.3 MG/DL (0.2-1.0)
[2017-02-18 07:17] LABS: HEMATOCRIT 32.8 % (39.0-51.0); HEMO FLAGS AUTO DIFF; MEAN CELL VOLUME 82.3 FL (80.0-100.0); MEAN CORPUSCULAR HEMOGLOBIN 26.4 PG (27.0-34.0); MEAN CORPUSCULAR HGB CONC 32.1 % (32.0-36.0); PLATELET COUNT 251 TH/MM3 (150-450); RED BLOOD COUNT 3.99 MIL/MM3 (4.50-5.90); RED CELL DISTRIBUTION WIDTH 19.6 % (11.6-17.2); WHITE BLOOD COUNT 11.4 TH/MM3 (4.0-11.0)
[2017-02-18] MEDS: INSULIN ASPART SUPPLEMENTAL SCALE SQ SCH ×4 (08:00→22:55)
[2017-02-18 08:02] LABS: BANDS 8 % (0-6); EOSINOPHILS 4 % (0-4); METAMYELOCYTES 1 % (0-1); MYELOCYTES 3 % (0-0); NEUTROPHIL # MANUAL DIFF 7.3 TH/MM3 (1.8-7.7); POLYS (SEG NEUTROPHILS) 52 % (16-70); WBC DIFF SAMPLE 100
[2017-02-18 08:04] LABS: PLATELET ESTIMATE SMEAR NORMAL (NORMAL)
[2017-02-18 08:05] LABS: PLATELET MORPHOLOGY NORMAL (NORMAL); SCAN/DIFF FINAL DIFF MANUAL; TEARDROP RBCS 1+ (NORMAL)
[2017-02-18] MEDS: RIVAROXABAN 15 MG TAB PO SCH (09:00)
[2017-02-18] MEDS: INSULIN DETEMIR 100 UNITS/ML VIAL SQ SCH (09:00)
[2017-02-18] MEDS: DOCUSATE SODIUM 50 MG/SENNA 8.6 MG TAB PO SCH ×2 (09:00→21:00)
[2017-02-18] MEDS: MORPHINE SULFATE 4 MG/ML INJ IV PUSH PRN ×3 (11:03→23:31)
[2017-02-18] MEDS: ATENOLOL 25 MG TAB PO SCH (11:07)
[2017-02-18] MEDS: amLODIPine BESYLATE 5 MG TAB PO SCH (11:07)
[2017-02-18] MEDS: TAMSULOSIN HCL 0.4 MG CAP PO SCH ×2 (11:07→21:00)
[2017-02-18] MEDS: SODIUM CHLORIDE 0.9% FLUSH 10 ML FLUSH IV FLUSH SCH ×2 (11:08→21:00)
[2017-02-18] MEDS: GLUCAGON 1 MG/ML VIAL OTHER PRN ×2 (11:19→18:53)
--- NOTE | 2017-02-18 11:29 | HHI.GIFU ---
Subjective Remarks Not tolerating po today, blood sugar was low, s/p glucagon. C/O abdominal pain. Had large liquid stool, with "pinkish tinge" per nurse. (Nena Driver) Objective Vitals I&O Vital Signs Date Time Temp Pulse Resp B/P (MAP) Pulse Ox O2 Delivery O2 Flow Rate FiO2 02/18/17 08:56 96 21 02/18/17 07:59 95.7 90 18 158/97 (117) 95 02/18/17 04:00 96.5 83 18 124/84 (97) 98 02/18/17 00:00 96.9 81 18 161/94 (116) 96 02/17/17 21:33 98 02/17/17 20:00 96.6 84 18 147/97 (114) 95 02/17/17 16:36 95.5 81 20 152/99 (116) 97 02/17/17 13:31 96.0 94 24 141/92 (108) 95 I/O 02/17/17 02/17/17 02/17/17 02/18/17 02/18/17 02/18/17 07:00 15:00 23:00 07:00 15:00 23:00 Intake Total 2392 ml 1400 ml 240 ml 120 ml Output Total 25 ml 1200 ml 1600 ml 450 ml Balance 2367 ml 200 ml -1360 ml -330 ml Intake Oral 240 ml 240 ml 120 ml IV Total 2152 ml 1400 ml Output Urine Total 1200 ml 1600 ml 450 ml Drainage Total 25 ml Bladder Scan Volume Amount 745 ml # Voids 4 # Bowel Movements 1 2 4 Laboratory Laboratory Tests Test 02/18/17 05:40 White Blood Count 11.4 Red Blood Count 3.99 Hemoglobin 10.5 Hematocrit 32.8 Mean Corpuscular Volume 82.3 Mean Corpuscular Hemoglobin 26.4 Mean Corpuscular Hemoglobin Concent 32.1 Red Cell Distribution Width 19.6 Platelet Count 251 Mean Platelet Volume 8.8 CBC Comment AUTO DIFF Differential Total Cells Counted 100 Neutrophils % (Manual) 52 Band Neutrophils % 8 Lymphocytes % 24 Monocytes % 8 Eosinophils % 4 Neutrophils # (Manual) 7.3 Metamyelocytes 1 Myelocytes 3 Differential Comment FINAL DIFF MANUAL Platelet Estimate NORMAL Platelet Morphology Comment NORMAL Tear Drop Cells 1+ Hematology Comments Blood Urea Nitrogen 24 Creatinine 1.30 Random Glucose 52 Total Protein 4.5 Albumin 1.7 Calcium Level 7.1 Phosphorus Level 3.0 Magnesium Level 1.6 Alkaline Phosphatase 114 Aspartate Amino Transf (AST/SGOT) 33 Alanine Aminotransferase (ALT/SGPT) 23 Total Bilirubin 0.3 Sodium Level 145 Potassium Level 4.7 Chloride Level 113 Carbon Dioxide Level 22.8 Anion Gap 9 Estimat Glomerular Filtration Rate 56 Protein Corrected Calcium 8.5 Date/Time Source Procedure Growth Status 02/15/17 04:45 Blood Peripheral Aerobic Blood Culture - Preliminary NO GROWTH IN 3 DAYS Resulted 02/15/17 04:45 Blood Peripheral Anaerobic Blood Culture - Preliminary NO GROWTH IN 3 DAYS Resulted 02/01/17 09:55 Cerebral Spinal Fluid Lumbar Puncture Fungal Smear - Final NO FUNGAL ELEMENTS SEEN. Resulted 02/01/17 09:55 Cerebral Spinal Fluid Lumbar Puncture Fungal Culture - Preliminary NO GROWTH IN 2 WEEKS Resulted 02/17/17 05:55 Stool Stool Stool Occult Blood (GREGORY) - Final HEMOCCULT POSITIVE Complete 02/11/17 02:30 Sputum Endotracheal Gram Stain - Final Complete 02/11/17 02:30 Sputum Culture - Final Staphylococcus Aureus Complete 02/11/17 12:20 Urine Catheterized Urine Urine Culture - Final NO GROWTH IN 48 HOURS. Complete 02/11/17 09:10 Abscess Arm Acid Fast Stain - Final NO ACID FAST BACILLI SEEN Resulted 02/11/17 09:10 Abscess Arm Mycobacterial Culture Pending Resulted Imaging Last Impressions Chest X-Ray 02/15/17 0600 Signed Impressions: Service Date/Time: January 06:10 - CONCLUSION: 1. Stable basilar airspace disease and small effusion, left greater than right. Previous left central line has been removed. Trace Holloway MD Upper Extremity Ultrasound 02/10/17 0000 Signed Impressions: Service Date/Time: Friday, February 10, 2017 18:46 - CONCLUSION: Occlusive thrombus in the cephalic and basilic veins. Benjamin Person MD Lung Scan- Nuclear Medicine 02/10/17 0000 Signed Impressions: Service Date/Time: Friday, February 10, 2017 22:17 - CONCLUSION: Low probability pulmonary embolism. Candido Patton MD Head CT 02/10/17 0000 Signed Impressions: Service Date/Time: Friday, February 10, 2017 23:51 - CONCLUSION: Negative noncontrast CT brain. Candido Patton MD Chest CT 9/23/17 0000 Signed Impressions: Service Date/Time: Friday, February 10, 2017 23:56 - CONCLUSION: Left lower lobe collapse with consolidation. Patchy infiltrates the medial right lower lung. Candido Patton MD Abdomen/Pelvis CT 02/10/17 0000 Signed Impressions: Service Date/Time: Friday, February 10, 2017 23:59 - CONCLUSION: 1. Nonobstructing 12 mm calcified stone lower pole right kidney. 2. Atrophic left kidney with significant cortical thinning. 3. Bilateral fat-containing inguinal hernias, large on the right, and moderate on the left. 4. Consolidative collapse of the left lower lobe. Candido Patton MD Abdomen X-Ray 02/10/17 0000 Signed Impressions: Service Date/Time: Friday, February 10, 2017 08:14 - CONCLUSION: No acute abdominal abnormality is identified. Angelo Allen MD Wrist X-Ray 02/06/17 0000 Signed Impressions: Service Date/Time: Monday, February 06, 2017 12:50 - CONCLUSION: Minimally displaced distal radius and ulnar fractures. Armando Dodd MD Lumbar Puncture Fluoroscopy 02/01/17 0000 Signed Impressions: Service Date/Time: January 09:35 - CONCLUSION: Uncomplicated fluoroscopically guided lumbar puncture. CSF was clear. Nabeel Peralta MD Head Magnetic Resonance Angiography 01/27/17 0000 Signed Impressions: Service Date/Time: Friday, January 27, 2017 10:33 - CONCLUSION: No intracranial vascular abnormality is identified. There is no aneurysm visualized. Angelo Allen MD IVC Filter Placement X-Ray 01/25/17 Signed Impressions: Service Date/Time: January 10:29 - CONCLUSION: Uncomplicated inferior vena cava filter placement as above. Yung Fowler MD Thoracic Spine MRI 01/24/17 0000 Signed Impressions: Service Date/Time: Tuesday, January 24, 2017 22:29 - CONCLUSION: 1. Mild degenerative spondylosis most prominently at T11-L1 with slight effacement of the anterior thecal sac and left lateral recess. No significant neural foraminal stenosis. 2. No acute fracture. Juan Bhakta MD Renal Ultrasound 01/23/17 0000 Signed Impressions: Service Date/Time: Monday, January 23, 2017 08:53 - CONCLUSION: 1. Evidence of chronic parenchymal disease of both kidneys. No obstructive uropathy or other acute abnormality demonstrated. 2. Trace ascites, nonspecific. Angelo Garrido MD Lumbar Spine MRI 01/23/17 Signed Impressions: Service Date/Time: Monday, January 23, 2017 17:01 - CONCLUSION: 1. At L4-5 is a broad-based disc protrusion with severe central canal and lateral recess stenosis and flattening of the exiting right L4 nerve root. 2. L5-S1 there is a disc protrusion and moderate stenosis with flattening of the exiting L5 nerve roots bilaterally. 3. At L3-4 there is a moderate to severe central stenosis and lateral recess stenosis with mild foraminal stenosis. 4. No acute fracture or spondylolisthesis. Trace Holloway MD Lower Extremity Ultrasound 01/23/17 Signed Impressions: Service Date/Time: Monday, January 23, 2017 09:53 - CONCLUSION: Bilateral focal lower extremity DVT involving the posterior tibial veins. Angelo Garrido MD Cervical Spine MRI 01/23/17 Signed Impressions: Service Date/Time: Monday, January 23, 2017 17:01 - CONCLUSION: 1. Multilevel cervical spine degenerative changes as above. 2. Mild degrees of spinal stenosis at C3/C4-C6/C7. No cord compression or cord signal abnormality. 3. Age indeterminate left paracentral/foraminal disc protrusion at C6/C7. 4. Multilevel foraminal stenosis, most severe on the left at C6/C7. Please see individual levels above. 5. No fracture or subluxation of the cervical spine. Angelo Garrido MD Brain MRI 01/23/17 Signed Impressions: Service Date/Time: Monday, January 23, 2017 17:01 - CONCLUSION: 1. No acute stroke or other acute intracranial abnormality demonstrated. 2. Moderate severity chronic white matter changes, nonspecific but most likely related to chronic small vessel disease. 3. Few scattered tiny lacunar infarcts of the brainstem. 4. Given the findings are not entirely specific, clinical evaluation for possible multiple sclerosis recommended. Angelo Garrido MD Knee X-Ray [id number]/22/[id number] Signed Impressions: Service Date/Time: Sunday, January 22, 2017 21:17 - CONCLUSION: 1. Evidence of moderate to large joint effusion. 2. No acute fracture or malalignment. 3. Mild 3 compartment osteoarthritic change. Benjamin Person MD Hip and Pelvis X-Ray [id number] Signed Impressions: Service Date/Time: Sunday, January 22, 2017 21:10 - CONCLUSION: 1. Mild to moderate degenerative change of both hips with no acute fracture or malalignment. There is flattening and remodeling of the right humeral head. Benjamin Person MD Physical Exam HEENT: Normocephalic; atraumatic; no jaundice. CHEST: CTA CARDIAC: RRR ABDOMEN: Soft, nondistended, mild diffuse tenderness; no hepatosplenomegaly; bowel sounds are present in all four quadrants. EXTREMITIES: Generalized edema. edema LUE, wound vac SKIN: Normal; no rash; no jaundice. EXECUTIVE PERSONAL ASSISTANT: No focal deficits; alert and oriented times three. (Nena Driver) Assessment and Plan Plan ASSESSMENT: - Anemia, Hemoccult positive stools. Never had EGD/Colonoscopy. now 10. 32.8. Has bilateral DVTs, requiring anticoagulation, on Xarelto- nurse held today. Will hold Xarelto and start lovenox with bid dosing. Plan for egd/colonoscopy on Sunday.Large liquid stool with "pink tinge" per nursing today. - Anemia, blood loss. 10.32.8. - Nausea, Inability to tolerate po. Will place on clear liquid diet, Abdomen soft, nondistended. If persists consider repeat imaging. - Diarrhea. On abx. One large pink tinged loose stool today per nurse. On abx. Will check for cdiff. EGD/Colon Sunday. - DVT LE, bilateral. On Xarelto- nurse held today, switch to lovenox with bid dosing. - Transverse myelitis, per attending. Oxacillin, per ID - LUE Abscess. S/P I&D with excision of left cephalic vein segment. Wound vac. - BREEZY, improved. Per renal. - HTN, DM, per attending. PLAN: - Plan for egd/colonoscopy on Sunday - Obtain consents - Clear liquids - NPO after MN Sunday night - Golytely prep if able to tolerate Sunday afternoon - Hold Xarelto - Lovenox with BID dosing - Monitor HH - Transfuse as necessary - Send stool for CDIff PCR - Monitor HH, transfuse as necessary - Supportive care - Further recommendations to follow based on results of above. - Patient seen and examined by Dr. Chopra and myself and this note is written on his behalf. (Nena Driver) Plan Patient was seen and examined, agree with above Notes, patient will need: EGD on Sunday we will put anticoagulation on hold, follow-up C. difficile PCR (Donald Chopra MD) Nena Driver Feb 18, 2017 11:29 Donald Chopra MD Feb 18, 2017 17:42
[2017-02-18] MEDS: ENOXAPARIN SODIUM 100 MG/ML SYRINGE SQ SCH (12:00)
--- NOTE | 2017-02-18 12:16 | HHI.NPPN ---
Subjective History of Present Illness 61-year-old with history of urinary stone Additional Remarks Diarrhea earlier today, feeling tired. Review of Systems General Constitutional: Fatigue Objective Data Data Vital Signs Date Time Temp Pulse Resp B/P (MAP) Pulse Ox O2 Delivery O2 Flow Rate FiO2 02/18/17 08:56 96 21 02/18/17 07:59 95.7 90 18 158/97 (117) 95 02/18/17 04:00 96.5 83 18 124/84 (97) 98 02/18/17 00:00 96.9 81 18 161/94 (116) 96 02/17/17 21:33 98 02/17/17 20:00 96.6 84 18 147/97 (114) 95 02/17/17 16:36 95.5 81 20 152/99 (116) 97 02/17/17 13:31 96.0 94 24 141/92 (108) 95 -: 02/18/17 0540 02/18/17 0540 Physical Exam Neck Neck Exam: Neck Supple Pulmonary Resp Exam: Clear Bilaterally, Breath Sounds Equal Cardiology CV Exam: Regular, Normal Sinus Rhythm Gastrointestinal/Abdomen GI Exam: Soft, Non-Tender, Bowel Sounds Present Extremeties Extremities Exam: Trace Edema Neurologic Neuro Exam: Sedated Assessment/Plan Problem List: (1) Acute renal failure ICD Codes: N17.9 - Acute kidney failure, unspecified Status: Acute Plan: Patient developed Hypotension,sepsis staph aureus respiratory failure and increase WBC. Had aspiration pneumonia, developed sepsis with ARF again creatinine declined slightly post hydration BREEZY resolving - Creatinine 1.2 -> 1.3 today. Episode of urinary retention earlier - 1.2L UOP after striaght cath. Then ongoing retention and palmer placed. Flomax started yesterday. IVFs held with concern for volume overload. Patient is tolerating PO intake. Continue to closely monitor. On Vanco follow levels Follow the urine out put and BMP. Heme + stools - EGD/Colonoscopy Sunday. (2) CKD (chronic kidney disease) stage 3, GFR 30-59 ml/min ICD Codes: N18.3 - Chronic kidney disease, stage 3 (moderate) Status: Chronic Plan: Ultrasound revealed chronic kidney disease there is no kidney stones (3) Diabetes ICD Codes: E11.9 - Type 2 diabetes mellitus without complications Plan: Continue to monitor (4) Distal end of ulna fracture, closed ICD Codes: S52.609A - Unspecified fracture of lower end of unspecified ulna, initial encounter for closed fracture Status: Acute Plan: Orthopedic is following Problem Qualifiers (1) Acute renal failure: Qualified Codes: N17.9 - Acute kidney failure, unspecified Nabeel Singer MD Feb 18, 2017 12:16
[2017-02-18] MEDS: DEXTROSE 5%-NACL 0.225% INJ 1,000 ML IV SCH (12:57)
--- NOTE | 2017-02-18 14:42 | HHI.PR ---
Subjective Remarks Patient reports no appetite c/o diffuse abdominal pain denies fevers or chills as per RN blood sugars running low even after giving glucagon Objective Vitals Vital Signs Date Time Temp Pulse Resp B/P (MAP) Pulse Ox O2 Delivery O2 Flow Rate FiO2 02/18/17 11:46 98.2 88 19 125/69 (87) 94 02/18/17 08:56 96 21 02/18/17 07:59 95.7 90 18 158/97 (117) 95 02/18/17 04:00 96.5 83 18 124/84 (97) 98 02/18/17 00:00 96.9 81 18 161/94 (116) 96 02/17/17 21:33 98 02/17/17 20:00 96.6 84 18 147/97 (114) 95 02/17/17 16:36 95.5 81 20 152/99 (116) 97 I/O 02/17/17 02/17/17 02/17/17 02/18/17 02/18/17 02/18/17 07:00 15:00 23:00 07:00 15:00 23:00 Intake Total 2392 ml 1400 ml 240 ml 120 ml 100 ml Output Total 25 ml 1200 ml 1600 ml 450 ml Balance 2367 ml 200 ml -1360 ml -330 ml 100 ml Intake Oral 240 ml 240 ml 120 ml IV Total 2152 ml 1400 ml 100 ml Output Urine Total 1200 ml 1600 ml 450 ml Drainage Total 25 ml Bladder Scan Volume Amount 745 ml # Voids 4 # Bowel Movements 1 2 4 Result Diagram: 02/18/17 0540 02/18/17 0540 Imaging Last Impressions Chest X-Ray 02/15/17 0600 Signed Impressions: Service Date/Time: January 06:10 - CONCLUSION: 1. Stable basilar airspace disease and small effusion, left greater than right. Previous left central line has been removed. Trace Holloway MD Upper Extremity Ultrasound 02/10/17 0000 Signed Impressions: Service Date/Time: Friday, February 10, 2017 18:46 - CONCLUSION: Occlusive thrombus in the cephalic and basilic veins. Benjamin Person MD Lung Scan- Nuclear Medicine 02/10/17 0000 Signed Impressions: Service Date/Time: Friday, February 10, 2017 22:17 - CONCLUSION: Low probability pulmonary embolism. Candido Patton MD Head CT 02/10/17 0000 Signed Impressions: Service Date/Time: Friday, February 10, 2017 23:51 - CONCLUSION: Negative noncontrast CT brain. Candido Patton MD Chest CT 02/10/17 0000 Signed Impressions: Service Date/Time: Friday, February 10, 2017 23:56 - CONCLUSION: Left lower lobe collapse with consolidation. Patchy infiltrates the medial right lower lung. Candido Patton MD Abdomen/Pelvis CT 02/10/17 0000 Signed Impressions: Service Date/Time: Friday, February 10, 2017 23:59 - CONCLUSION: 1. Nonobstructing 12 mm calcified stone lower pole right kidney. 2. Atrophic left kidney with significant cortical thinning. 3. Bilateral fat-containing inguinal hernias, large on the right, and moderate on the left. 4. Consolidative collapse of the left lower lobe. Candido Patton MD Abdomen X-Ray 02/10/17 0000 Signed Impressions: Service Date/Time: Friday, February 10, 2017 08:14 - CONCLUSION: No acute abdominal abnormality is identified. Angelo Allen MD Wrist X-Ray 02/06/17 0000 Signed Impressions: Service Date/Time: Monday, February 06, 2017 12:50 - CONCLUSION: Minimally displaced distal radius and ulnar fractures. Armando Dodd MD Lumbar Puncture Fluoroscopy 02/01/17 0000 Signed Impressions: Service Date/Time: January 09:35 - CONCLUSION: Uncomplicated fluoroscopically guided lumbar puncture. CSF was clear. Nabeel Peralta MD Head Magnetic Resonance Angiography 01/27/17 0000 Signed Impressions: Service Date/Time: Friday, January 27, 2017 10:33 - CONCLUSION: No intracranial vascular abnormality is identified. There is no aneurysm visualized. Angelo Allen MD IVC Filter Placement X-Ray 01/25/17 0000 Signed Impressions: Service Date/Time: January 10:29 - CONCLUSION: Uncomplicated inferior vena cava filter placement as above. Yung Fowler MD Thoracic Spine MRI 01/24/17 0000 Signed Impressions: Service Date/Time: Tuesday, January 24, 2017 22:29 - CONCLUSION: 1. Mild degenerative spondylosis most prominently at T11-L1 with slight effacement of the anterior thecal sac and left lateral recess. No significant neural foraminal stenosis. 2. No acute fracture. Juan Bhakta MD Renal Ultrasound 01/23/17 Signed Impressions: Service Date/Time: Monday, January 23, 2017 08:53 - CONCLUSION: 1. Evidence of chronic parenchymal disease of both kidneys. No obstructive uropathy or other acute abnormality demonstrated. 2. Trace ascites, nonspecific. Angelo Garrido MD Lumbar Spine MRI 01/23/17 Signed Impressions: Service Date/Time: Monday, January 23, 2017 17:01 - CONCLUSION: 1. At L4-5 is a broad-based disc protrusion with severe central canal and lateral recess stenosis and flattening of the exiting right L4 nerve root. 2. L5-S1 there is a disc protrusion and moderate stenosis with flattening of the exiting L5 nerve roots bilaterally. 3. At L3-4 there is a moderate to severe central stenosis and lateral recess stenosis with mild foraminal stenosis. 4. No acute fracture or spondylolisthesis. Trace Holloway MD Lower Extremity Ultrasound 01/23/17 Signed Impressions: Service Date/Time: Monday, January 23, 2017 09:53 - CONCLUSION: Bilateral focal lower extremity DVT involving the posterior tibial veins. Angelo Garrido MD Cervical Spine MRI 01/23/17 Signed Impressions: Service Date/Time: Monday, January 23, 2017 17:01 - CONCLUSION: 1. Multilevel cervical spine degenerative changes as above. 2. Mild degrees of spinal stenosis at C3/C4-C6/C7. No cord compression or cord signal abnormality. 3. Age indeterminate left paracentral/foraminal disc protrusion at C6/C7. 4. Multilevel foraminal stenosis, most severe on the left at C6/C7. Please see individual levels above. 5. No fracture or subluxation of the cervical spine. Angelo Garrido MD Brain MRI 01/23/17 Signed Impressions: Service Date/Time: Monday, January 23, 2017 17:01 - CONCLUSION: 1. No acute stroke or other acute intracranial abnormality demonstrated. 2. Moderate severity chronic white matter changes, nonspecific but most likely related to chronic small vessel disease. 3. Few scattered tiny lacunar infarcts of the brainstem. 4. Given the findings are not entirely specific, clinical evaluation for possible multiple sclerosis recommended. Angelo Garrido MD Knee X-Ray 01/22/[id number] Signed Impressions: Service Date/Time: Sunday, January 22, 2017 21:17 - CONCLUSION: 1. Evidence of moderate to large joint effusion. 2. No acute fracture or malalignment. 3. Mild 3 compartment osteoarthritic change. Benjamin Person MD Hip and Pelvis X-Ray [id number]/22/[id number] Signed Impressions: Service Date/Time: Sunday, January 22, 2017 21:10 - CONCLUSION: 1. Mild to moderate degenerative change of both hips with no acute fracture or malalignment. There is flattening and remodeling of the right humeral head. Benjamin Person MD Objective Remarks AAOx3 NAD Clear lungs BL Abdomen soft, NT, ND +2 edema in lower extremities bilaterally. Procedures IVC filter placement 01/25/2017 LP 01/26/2017 Medications and IVs Current Medications Medications (Trade) Dose Ordered Sig/Rosalia Route Start Time Stop Time Status Last Admin (NS Flush) 2 ml UNSCH PRN IV FLUSH 01/23/17 00:30 02/01/17 05:07 (NS Flush) 2 ml BID IV FLUSH 01/23/17 09:00 02/18/17 11:08 (Tylenol) 650 mg Q4H PRN PO 01/23/17 00:30 02/14/17 20:50 (Zofran Inj) 4 mg Q6H PRN IVP 01/23/17 00:30 02/10/17 06:45 ([place] 5-325 Mg) 1 tab Q4H PRN PO 01/23/17 00:30 02/17/17 00:00 ([place] 7.5-325 Mg) 1 tab Q4H PRN PO 01/23/17 00:30 02/18/17 00:13 (Narcan Inj) 0.4 mg UNSCH PRN IV 01/23/17 00:30 (Edna-Colace) 1 tab BID PO 01/23/17 09:00 02/16/17 22:05 (Milk Of Magnesia Liq) 30 ml Q12H PRN PO 01/23/17 00:30 02/09/17 12:30 (Senokot) 17.2 mg Q12H PRN PO 01/23/17 00:30 02/09/17 12:30 (Dulcolax Supp) 10 mg DAILY PRN RECTAL 01/23/17 00:30 (Tenormin) 25 mg DAILY PO 01/24/17 13:00 Future hold 02/18/17 11:07 (Lipitor) 10 mg HS PO 01/24/17 21:00 02/17/17 22:54 (Catapres) 0.1 mg Q6H PRN PO 01/24/17 18:00 02/17/17 00:08 (Norvasc) 5 mg DAILY PO 01/28/17 09:00 Future hold 02/18/17 11:07 (Morphine Inj) 2 mg Q3H PRN IV PUSH 02/10/17 06:15 02/18/17 11:03 (Brethine Inj) 1 mg UNSCH PRN SQ 02/10/17 20:30 (Pepcid Inj) 20 mg HS IV PUSH 02/10/17 22:45 02/17/17 22:54 (D50w (Vial) Inj) 50 ml UNSCH PRN IV PUSH 02/11/17 05:45 (Glucagon Inj) 1 mg UNSCH PRN OTHER 02/11/17 05:45 02/18/17 11:19 (Duoneb Neb) 1 ampule Q2HR NEB PRN NEB 02/11/17 15:00 02/16/17 21:42 Oxacillin Sodium 2 gm/Sodium Chloride 100 ml @ 200 mls/hr Q4H IV 02/13/17 14:00 02/18/17 11:06 (Duoneb Neb) 1 ampule Q6HR NEB NEB 02/14/17 22:00 02/18/17 08:55 (Haldol Inj) 1 mg Q6H PRN IV 02/14/17 17:30 (NovoLOG SUPPLEMENTAL SCALE) 1 ACHS SLIDING SCALE SQ 02/15/17 12:00 02/16/17 13:34 (Xarelto) 15 mg BID PO 02/15/17 15:00 Future Hold 02/17/17 22:53 (K-Phos Neutral) 250 mg Q8HR PO 02/17/17 15:00 02/17/17 22:56 (Flomax) 0.4 mg Q12HR PO 02/17/17 15:00 02/18/17 11:07 (Lovenox Inj) 100 mg Q12H SQ 02/18/17 12:00 Future Hold (Colyte Liq) 4,000 ml ONCE ONCE PO 02/19/17 16:00 02/19/17 16:01 Dextrose/Sodium Chloride 1,000 ml @ 100 mls/hr Q10H IV 02/18/17 12:00 02/18/17 12:57 A/P Problem List: (1) Transverse myelitis ICD Code: G37.3 - Acute transverse myelitis in demyelinating disease of central nervous system Status: Acute (2) Septic shock ICD Code: A41.9 - Sepsis, unspecified organism; R65.21 - Severe sepsis with septic shock Status: Resolved (3) HCAP (healthcare-associated pneumonia) ICD Code: J18.9 - Pneumonia, unspecified organism (4) Acute respiratory failure with hypoxia and hypercarbia ICD Code: J96.01 - Acute respiratory failure with hypoxia; J96.02 - Acute respiratory failure with hypercapnia Status: Resolved (5) Hyperlipidemia ICD Code: E78.5 - Hyperlipidemia, unspecified Status: Chronic (6) HTN (hypertension) ICD Code: I10 - Essential (primary) hypertension (7) DVT of lower extremity, bilateral ICD Code: I82.403 - Acute embolism and thrombosis of unspecified deep veins of lower extremity, bilateral (8) Diabetes mellitus with hyperglycemia ICD Code: E11.65 - Type 2 diabetes mellitus with hyperglycemia (9) Hypocalcemia ICD Code: E83.51 - Hypocalcemia (10) Hypernatremia ICD Code: E87.0 - Hyperosmolality and hypernatremia (11) Hypokalemia ICD Code: E87.6 - Hypokalemia (12) Acute metabolic encephalopathy ICD Code: G93.41 - Metabolic encephalopathy (13) Quadriparesis ICD Code: G82.50 - Quadriplegia, unspecified Status: Acute (14) BREEZY (acute kidney injury) ICD Code: N17.9 - Acute kidney failure, unspecified (15) Diarrhea ICD Code: R19.7 - Diarrhea, unspecified Plan: Check for berta for C diff PCR (16) Abdominal pain ICD Code: R10.9 - Unspecified abdominal pain Plan: Check KUB Assessment and Plan (1) Transverse myelitis Plan: The patient was admitted for suspected transverse myelitis and started on treatment with IV Solu-Medrol 250 mg IV every 6 hours from 01/27 through 02/02. Patient underwent a lumbar puncture on 01/26 and 02/01. CSF culture negative on 01/26, 02/01. Oligoclonal bands negative as well. CSF serum IgG index not elevated. VDRL nonreactive and cryptococcal antigen negative. Brain MRI obtained on 01/23 did not show acute stroke. It did show however few scattered lacunar infarcts of the brainstem. Moderate chronic white matter changes. MRI of the cervical/thoracic spine showed mild spinal stenosis at the level of C3/C4 to C6/C7. No cord compression. RPR negative. Neurology consulted. Dr. Crenshaw evaluated the patient, repeat CT of the brain on 02/10 negative. Continue PT OT. Out of bed with assistance. (2) Septic shock Plan: Septic shock secondary to suppurative thrombophlebitis thrombophlebitis of the left upper extremity, status post I&D and excision of portion of cephalic vein. Septic shock resolved status post IV fluid administration as well as IV pressors and hydrocortisone at 100 mg IV every 8 hours for relative adrenal insufficiency. (3) HCAP (healthcare-associated pneumonia) Plan: Patient went into acute hypoxemic hypercarbic respiratory failure and had to be intubated emergently on 02/10. At that time the patient was cared by the finishing machine operator in the intensive care unit. Diagnostic and therapeutic bronchoscopy was performed of the left lower lobe. It was found that the patient had white mucous plugs which were removed and BAL sent. VQ scan obtained on 02/10 also showed a low probably T4 PE. CT of the chest on showed left lower lobe collapse and consolidation and right lower lobe infiltrate. During the patient's stay in the intensive care unit the patient had the endotracheal tube dislodged and this was advanced by Dr. Hogan and the direct laryngoscopy around 5:30 on 02/11. As part of the supportive treatment the patient was given duo nebs every 6 hours scheduled and when needed. Sputum culture grew MSSA. ID consulted and following the patient managed antibiotics. The patient currently on oxacillin. (4) Acute respiratory failure with hypoxia and hypercarbia Plan: As above (5) Hyperlipidemia Plan: Continue statin. (6) HTN (hypertension) Plan: Blood pressure seems to be slightly elevated. Antihypertensive medications were placed on hold due to the patient's having episodes of hypotension. 02/16 blood pressure still uncontrolled and severely elevated with systolic blood pressure in the 160s. I will increase amlodipine dose to 10 mg by mouth daily and atenolol dose to 50 minutes by mouth daily. 02/17 BP seems to slightly improved. Will continue to monitor. 02/18 BP stable now. Continue Amlodipine 10 mg po daily and atenolol 50 mg po daily. (7) DVT of lower extremity, bilateral Plan: Patient initially started on heparin drip for treatment of DVT, this was placed on hold for lumbar puncture without suspected traumatic tap. Patient is status post IVC filter which was placed on 01/25/17 and as per documentation the patient had not been on DVT prophylaxis. Last LP was on 02/01. The case was discussed by the finishing machine operator with Dr. Crenshaw from neurology who agreed that he was appropriate to anticoagulate the patient. Ultrasound of the left upper extremity on 02/10 showed occlusive thrombus in the mid cephalic vein and basilic vein. 02/16 IV heparin drip discontinued on 02/15 and the patient transition to Xarelto. 02/17 Hold Xarelto for now given Hemoccult positive stool. Consult GI for EGD/ colonoscopy. 02/18 Patient on Lovenox SQ awaiting for ED colonoscopy in am. Case discussed with GI ILIA Driver. (8) Diabetes mellitus with hyperglycemia ICD Code: E11.65 - Type 2 diabetes mellitus with hyperglycemia Plan: Blood sugar seems to be stable. Initially treated with insulin drip protocol - DC'd 02/15 02/17 patient had episode of hypoglycemia today. Will decrease insulin Levemir 25 mg subcutaneously twice a day and continue SSI with insulin NovoLog. 02/18 Patient not eating due to abdominal pain and diarrhea. Will hols insulin Levemir, Continue to monitor accuchecks. (9) Hypocalcemia Plan: Likely due to nutritional deficiencies since patient was nothing by mouth. The patient is now able to eat a diet. Patient status post replacement with IV calcium chloride and protein corrected calcium now within normal range. (10) Hypernatremia Plan: Likely secondary to dehydration. The patient started half-normal saline plus potassium chloride, however sodium still slightly elevated from 150-151. I will switch IV fluids to 1/4 NS + KCL and continue to monitor BMP every 6 hours. 02/16 sodium trending down with dropped from 150-147. Continue same management as above mentioned. 02/17 discontinue hypertonic saline since sodium is down to 144 and patient is having good oral intake of fluids. Encouraged by mouth fluids intake to patient. (11) Hypokalemia ICD Code: E87.6 - Hypokalemia Plan: Likely due to nutritional deficiency. Continue to replace orally and monitor BMP. 02/17 resolved. I will order an extra dose of 20 mEq of potassium chloride to get the potassium closer to 4 (12) Acute metabolic encephalopathy Plan: Metabolic encephalopathy likely multifactorial from sepsis, which is resolving. The patient is more awake and alert and following commands. (13) Quadriparesis Plan: Quadriparesis thought to be secondary to transverse myelitis. (14) BREEZY (acute kidney injury) Plan: [place] eye likely secondary to prerenal azotemia and sepsis. Renal ultrasound obtained on 01/23 did not show any evidence of chronic parenchymal disease of both kidneys. No obstructive uropathy or other acute abnormality demonstrated. Creatinine on admission was 4.09 and it has been slowly trending down to 1.8. Continue IV fluids and continue to monitor BUN/creatinine, avoid nephrotoxins. 02/16 creatinine continues to trend down. Appreciate nephrology recommendations. 02/17 I will start the patient on oral Bumex given fluid overload and edema. 02/18 Hold Bumex given diarrhea. GI prophylaxis with Famotidine Hold Xarelto, continue SCDs. Discharge Planning Pending GI consult. Problem Qualifiers (1) Hyperlipidemia: Qualified Codes: E78.5 - Hyperlipidemia, unspecified (2) HTN (hypertension): Qualified Codes: I10 - Essential (primary) hypertension (3) Diabetes mellitus with hyperglycemia: Qualified Codes: E11.65 - Type 2 diabetes mellitus with hyperglycemia (4) Diarrhea: Qualified Codes: A09 - Infectious gastroenteritis and colitis, unspecified (5) Abdominal pain: Qualified Codes: R10.84 - Generalized abdominal pain Abdelrahman Alcantara MD Feb 18, 2017 14:42
--- NOTE | 2017-02-18 15:08 | RADRPT ---
EXAM DATE/TIME: 02/18/2017 14:35 [facility] COMPARISON: No previous studies available for comparison. INDICATIONS : Abdomen pain MEDICAL HISTORY : Gastroesophageal reflux disease. Arthritis. Renal calculi. Cardiovascular SURGICAL HISTORY : Nasal surgery. Stents in kidneys. ENCOUNTER: Subsequent ACUITY: 3 weeks PAIN SCORE: 10/10 LOCATION: Abdomen FINDINGS: Supine view of the abdomen was performed. The abdominal bowel gas pattern is normal. No abnormal ma sses, calcifications, or organomegaly is seen. The osseous structures are unremarkable. IVC filter i n place CONCLUSION: Normal examination. Device overlies left upper abdomen. Otherwise unremarkable study. Duy Genao MD on February 18, 2017 at 15:06 Board Certified Radiologist. This report was verified electronically.
[2017-02-18] MEDS ORDERED: CHLORHEXIDINE GLUCONATE 2 % 1 PACK (2 CLOTHS) TOPICAL PRN (16:45)
[2017-02-18] MEDS ORDERED: METOPROLOL TARTRATE 25 MG TAB PO PRN (16:45)
[2017-02-18] MEDS ORDERED: INSULIN HUMAN REGULAR 1,000 UNITS/10 ML VIAL SQ PRN (16:45)
[2017-02-18] MEDS ORDERED: POVIDONE IODINE 5% (ANTISEPSIS KIT) 4 APPLICATIONS EACH NARE PRN (16:45)
[2017-02-18] MEDS ORDERED: SODIUM CHLORID 0.9% 500 ML IV PRN (17:00)
[2017-02-18] MEDS ORDERED: LACTATED RINGER'S 1000 ML IV PRN (17:00)
[2017-02-18] MEDS: DEXTROSE 50% IN WATER 50 ML VIAL(D50) IV PUSH PRN ×2 (17:45→22:50)
[2017-02-18] MEDS: FAMOTIDINE 20 MG/2 ML VIAL IV PUSH SCH (21:00)
[2017-02-18] MEDS: ATORVASTATIN 10 MG TAB PO SCH (21:00)
[2017-02-19] MEDS: OXACILLIN INJ 2 GM in SODIUM CHLORIDE 0.9% INJ 100 ML IV SCH ×6 (02:00→22:55)
[2017-02-19] MEDS: DEXTROSE 50% IN WATER 50 ML VIAL(D50) IV PUSH PRN (04:18)
[2017-02-19] MEDS: MORPHINE SULFATE 4 MG/ML INJ IV PUSH PRN ×4 (04:24→22:50)
[2017-02-19 04:55] VITALS: BP 142/93; PULSE 97; RESP 19; TEMP 96.9; O2SAT 96
[2017-02-19] MEDS: DEXTROSE 5%-NACL 0.225% INJ 1,000 ML IV SCH (04:55)
[2017-02-19] MEDS: POTASSIUM PHOSPHATE/SODIUM PHOSPHATE 250 MG TAB PO SCH ×3 (05:13→22:34)
[2017-02-19 08:00] VITALS: BP 120/100; PULSE 108; RESP 20; TEMP 98.8; O2SAT 93
[2017-02-19] MEDS: INSULIN ASPART SUPPLEMENTAL SCALE SQ SCH ×4 (08:00→21:00)
[2017-02-19 08:38] VITALS: O2SAT 96
[2017-02-19] MEDS: DOCUSATE SODIUM 50 MG/SENNA 8.6 MG TAB PO SCH ×2 (09:00→21:00)
[2017-02-19] MEDS: ATENOLOL 25 MG TAB PO SCH (09:47)
[2017-02-19] MEDS: amLODIPine BESYLATE 5 MG TAB PO SCH (09:47)
[2017-02-19] MEDS: TAMSULOSIN HCL 0.4 MG CAP PO SCH ×2 (09:47→22:33)
[2017-02-19] MEDS: SODIUM CHLORIDE 0.9% FLUSH 10 ML FLUSH IV FLUSH SCH ×2 (09:48→22:35)
[2017-02-19] MEDS ORDERED: SODIUM CHLORIDE 23.4% INJ 77 MEQ in DEXTROSE 10% INJ 1,000 ML IV SCH (10:00)
--- NOTE | 2017-02-19 10:18 | HHI.PR ---
Subjective Remarks Patient complaining of lower abdominal pain - described as cramping c/o diarrhea denies cp/sob denies fevers/chills as per Rn patient not eating well Objective Vitals Vital Signs Date Time Temp Pulse Resp B/P (MAP) Pulse Ox O2 Delivery O2 Flow Rate FiO2 02/19/17 08:38 96 02/19/17 04:55 96.9 97 19 142/93 (109) 96 02/18/17 23:38 97.1 89 19 131/81 (98) 95 02/18/17 21:18 94 02/18/17 19:35 95.7 85 19 138/80 (99) 94 02/18/17 16:00 96.1 91 19 160/97 (118) 95 02/18/17 15:29 94 02/18/17 11:46 98.2 88 19 125/69 (87) 94 I/O 02/18/17 02/18/17 02/18/17 02/19/17 02/19/17 02/19/17 07:00 15:00 23:00 07:00 15:00 23:00 Intake Total 120 ml 460 ml 220 ml 1007 ml Output Total 450 ml 400 ml 235 ml 500 ml Balance -330 ml 60 ml -15 ml 507 ml Intake Oral 120 ml 360 ml 120 ml 120 ml IV Total 100 ml 100 ml 887 ml Output Urine Total 450 ml 400 ml 225 ml 500 ml Drainage Total 10 ml # Voids 0 # Bowel Movements 4 3 0 2 Result Diagram: 02/18/17 0540 02/18/17 0540 Imaging Last Impressions Abdomen X-Ray 02/18/17 0000 Signed Impressions: Service Date/Time: Saturday, February 18, 2017 14:35 - CONCLUSION: Normal examination. Device overlies left upper abdomen. Otherwise unremarkable study. Duy Genao MD Chest X-Ray 02/15/17 0600 Signed Impressions: Service Date/Time: January 06:10 - CONCLUSION: 1. Stable basilar airspace disease and small effusion, left greater than right. Previous left central line has been removed. Trace Holloway MD Upper Extremity Ultrasound 02/10/17 0000 Signed Impressions: Service Date/Time: Friday, February 10, 2017 18:46 - CONCLUSION: Occlusive thrombus in the cephalic and basilic veins. Benjamin Person MD Lung Scan-V Nuclear Medicine 02/10/17 0000 Signed Impressions: Service Date/Time: Friday, February 10, 2017 22:17 - CONCLUSION: Low probability pulmonary embolism. Candido Patton MD Head CT 02/10/17 0000 Signed Impressions: Service Date/Time: Friday, February 10, 2017 23:51 - CONCLUSION: Negative noncontrast CT brain. Candido Patton MD Chest CT 02/10/17 Signed Impressions: Service Date/Time: Friday, February 10, 2017 23:56 - CONCLUSION: Left lower lobe collapse with consolidation. Patchy infiltrates the medial right lower lung. Candido Patton MD Abdomen/Pelvis CT 02/10/17 0000 Signed Impressions: Service Date/Time: Friday, February 10, 2017 23:59 - CONCLUSION: 1. Nonobstructing 12 mm calcified stone lower pole right kidney. 2. Atrophic left kidney with significant cortical thinning. 3. Bilateral fat-containing inguinal hernias, large on the right, and moderate on the left. 4. Consolidative collapse of the left lower lobe. Candido Patton MD Wrist X-Ray 02/06/17 0000 Signed Impressions: Service Date/Time: Monday, February 06, 2017 12:50 - CONCLUSION: Minimally displaced distal radius and ulnar fractures. Armando Dodd MD Lumbar Puncture Fluoroscopy 02/01/17 0000 Signed Impressions: Service Date/Time: January 09:35 - CONCLUSION: Uncomplicated fluoroscopically guided lumbar puncture. CSF was clear. Nabeel Peralta MD Head Magnetic Resonance Angiography 01/27/17 0000 Signed Impressions: Service Date/Time: Friday, January 27, 2017 10:33 - CONCLUSION: No intracranial vascular abnormality is identified. There is no aneurysm visualized. Angelo Allen MD IVC Filter Placement X-Ray 01/25/17 0000 Signed Impressions: Service Date/Time: January 10:29 - CONCLUSION: Uncomplicated inferior vena cava filter placement as above. Yung Fowler MD Thoracic Spine MRI 01/24/17 0000 Signed Impressions: Service Date/Time: Tuesday, January 24, 2017 22:29 - CONCLUSION: 1. Mild degenerative spondylosis most prominently at T11-L1 with slight effacement of the anterior thecal sac and left lateral recess. No significant neural foraminal stenosis. 2. No acute fracture. Juan Bhakta MD Renal Ultrasound 01/23/17 Signed Impressions: Service Date/Time: Monday, January 23, 2017 08:53 - CONCLUSION: 1. Evidence of chronic parenchymal disease of both kidneys. No obstructive uropathy or other acute abnormality demonstrated. 2. Trace ascites, nonspecific. Angelo Garrido MD Lumbar Spine MRI 01/23/17 Signed Impressions: Service Date/Time: Monday, January 23, 2017 17:01 - CONCLUSION: 1. At L4-5 is a broad-based disc protrusion with severe central canal and lateral recess stenosis and flattening of the exiting right L4 nerve root. 2. L5-S1 there is a disc protrusion and moderate stenosis with flattening of the exiting L5 nerve roots bilaterally. 3. At L3-4 there is a moderate to severe central stenosis and lateral recess stenosis with mild foraminal stenosis. 4. No acute fracture or spondylolisthesis. Trace Holloway MD Lower Extremity Ultrasound 01/23/17 Signed Impressions: Service Date/Time: Monday, January 23, 2017 09:53 - CONCLUSION: Bilateral focal lower extremity DVT involving the posterior tibial veins. Angelo Garrido MD Cervical Spine MRI 01/23/17 Signed Impressions: Service Date/Time: Monday, January 23, 2017 17:01 - CONCLUSION: 1. Multilevel cervical spine degenerative changes as above. 2. Mild degrees of spinal stenosis at C3/C4-C6/C7. No cord compression or cord signal abnormality. 3. Age indeterminate left paracentral/foraminal disc protrusion at C6/C7. 4. Multilevel foraminal stenosis, most severe on the left at C6/C7. Please see individual levels above. 5. No fracture or subluxation of the cervical spine. Angelo Garrido MD Brain MRI 01/23/17 Signed Impressions: Service Date/Time: Monday, January 23, 2017 17:01 - CONCLUSION: 1. No acute stroke or other acute intracranial abnormality demonstrated. 2. Moderate severity chronic white matter changes, nonspecific but most likely related to chronic small vessel disease. 3. Few scattered tiny lacunar infarcts of the brainstem. 4. Given the findings are not entirely specific, clinical evaluation for possible multiple sclerosis recommended. Angelo Garrido MD Knee X-Ray [id number]/22/[id number] Signed Impressions: Service Date/Time: Sunday, January 22, 2017 21:17 - CONCLUSION: 1. Evidence of moderate to large joint effusion. 2. No acute fracture or malalignment. 3. Mild 3 compartment osteoarthritic change. Benjamin Person MD Hip and Pelvis X-Ray [id number]/22/[id number] Signed Impressions: Service Date/Time: Sunday, January 22, 2017 21:10 - CONCLUSION: 1. Mild to moderate degenerative change of both hips with no acute fracture or malalignment. There is flattening and remodeling of the right humeral head. Benjamin Person MD Objective Remarks AAOx3 NAD Clear lungs BL Abdomen soft, trender to palpation of lower abdomen +2 edema in lower extremities bilaterally. scrotal edema present Procedures IVC filter placement 01/25/2017 LP 01/26/2017 Medications and IVs Current Medications Medications (Trade) Dose Ordered Sig/Rosalia Route Start Time Stop Time Status Last Admin (NS Flush) 2 ml UNSCH PRN IV FLUSH 01/23/17 00:30 02/01/17 05:07 (NS Flush) 2 ml BID IV FLUSH 01/23/17 09:00 02/19/17 09:48 (Tylenol) 650 mg Q4H PRN PO 01/23/17 00:30 02/14/17 20:50 (Zofran Inj) 4 mg Q6H PRN IVP 01/23/17 00:30 02/10/17 06:45 ([place] 5-325 Mg) 1 tab Q4H PRN PO 01/23/17 00:30 02/17/17 00:00 ([place] 7.5-325 Mg) 1 tab Q4H PRN PO 01/23/17 00:30 02/18/17 15:55 (Narcan Inj) 0.4 mg UNSCH PRN IV 01/23/17 00:30 ([place]-Colace) 1 tab BID PO 01/23/17 09:00 02/16/17 22:05 (Milk Of Magnesia Liq) 30 ml Q12H PRN PO 01/23/17 00:30 02/09/17 12:30 (Senokot) 17.2 mg Q12H PRN PO 01/23/17 00:30 02/09/17 12:30 (Dulcolax Supp) 10 mg DAILY PRN RECTAL 01/23/17 00:30 (Tenormin) 25 mg DAILY PO 01/24/17 13:00 Future hold 02/19/17 09:47 (Lipitor) 10 mg HS PO 01/24/17 21:00 02/17/17 22:54 (Catapres) 0.1 mg Q6H PRN PO 01/24/17 18:00 02/17/17 00:08 (Norvasc) 5 mg DAILY PO 01/28/17 09:00 Future hold 02/19/17 09:47 (Morphine Inj) 2 mg Q3H PRN IV PUSH 02/10/17 06:15 02/19/17 09:47 (Brethine Inj) 1 mg UNSCH PRN SQ 02/10/17 20:30 (Pepcid Inj) 20 mg HS IV PUSH 02/10/17 22:45 02/18/17 21:00 (D50w (Vial) Inj) 50 ml UNSCH PRN IV PUSH 02/11/17 05:45 02/19/17 04:18 (Glucagon Inj) 1 mg UNSCH PRN OTHER 02/11/17 05:45 02/18/17 18:53 (Duoneb Neb) 1 ampule Q2HR NEB PRN NEB 02/11/17 15:00 02/16/17 21:42 Oxacillin Sodium 2 gm/Sodium Chloride 100 ml @ 200 mls/hr Q4H IV 02/13/17 14:00 02/19/17 09:56 (Haldol Inj) 1 mg Q6H PRN IV 02/14/17 17:30 (NovoLOG SUPPLEMENTAL SCALE) 1 ACHS SLIDING SCALE SQ 02/15/17 12:00 02/16/17 13:34 (Xarelto) 15 mg BID PO 02/15/17 15:00 Future Hold 02/17/17 22:53 (K-Phos Neutral) 250 mg Q8HR PO 02/17/17 15:00 02/18/17 15:12 (Flomax) 0.4 mg Q12HR PO 02/17/17 15:00 02/19/17 09:47 (Lovenox Inj) 100 mg Q12H SQ 02/18/17 12:00 Future Hold 02/19/17 00:00 (Colyte Liq) 4,000 ml ONCE ONCE PO 02/19/17 16:00 02/19/17 16:01 Lactated Ringer's 1,000 ml @ 30 mls/hr Q24H PRN IV 02/18/17 17:00 02/21/17 16:59 Sodium Chloride 500 ml @ 30 mls/hr [id number] PRN IV 02/18/17 17:00 02/21/17 16:59 (Lopressor) 25 mg [employer]Y [employer] CLERK PRN PO 02/18/17 16:45 02/21/17 16:44 (Betadine 5% Antisepsis Kit) 1 applic [employer]Y [employer] PRN EACH NARE 02/18/17 16:45 02/21/17 16:44 (Chlorhexidine 2% Cloth) 3 pack [employer]Y [employer] PRN TOPICAL 02/18/17 16:45 02/21/17 16:44 (NovoLIN R INJ) See Protocol Table ... DRY [employer] CLERK PRN SQ 02/18/17 16:45 02/21/17 16:44 Sodium Chloride 77 meq/Dextrose 1,019.25 ml @ 5 mls/hr Q24H IV 02/19/17 10:00 A/P Problem List: (1) Transverse myelitis ICD Code: G37.3 - Acute transverse myelitis in demyelinating disease of central nervous system Status: Acute (2) Septic shock ICD Code: A41.9 - Sepsis, unspecified organism; R65.21 - Severe sepsis with septic shock Status: Resolved (3) HCAP (healthcare-associated pneumonia) ICD Code: J18.9 - Pneumonia, unspecified organism (4) Acute respiratory failure with hypoxia and hypercarbia ICD Code: J96.01 - Acute respiratory failure with hypoxia; J96.02 - Acute respiratory failure with hypercapnia Status: Resolved (5) Hyperlipidemia ICD Code: E78.5 - Hyperlipidemia, unspecified Status: Chronic (6) HTN (hypertension) ICD Code: I10 - Essential (primary) hypertension (7) DVT of lower extremity, bilateral ICD Code: I82.403 - Acute embolism and thrombosis of unspecified deep veins of lower extremity, bilateral (8) Diabetes mellitus with hyperglycemia ICD Code: E11.65 - Type 2 diabetes mellitus with hyperglycemia (9) Hypocalcemia ICD Code: E83.51 - Hypocalcemia (10) Hypernatremia ICD Code: E87.0 - Hyperosmolality and hypernatremia (11) Hypokalemia ICD Code: E87.6 - Hypokalemia (12) Acute metabolic encephalopathy ICD Code: G93.41 - Metabolic encephalopathy (13) Quadriparesis ICD Code: G82.50 - Quadriplegia, unspecified Status: Acute (14) BREEZY (acute kidney injury) ICD Code: N17.9 - Acute kidney failure, unspecified (15) Diarrhea ICD Code: R19.7 - Diarrhea, unspecified Plan: Check for berta for C diff PCR ---> ordered and pending (16) Abdominal pain ICD Code: R10.9 - Unspecified abdominal pain Plan: KUB reviewed by me without abnormalities Lower abdominal pain likely related to bladder spasms. Will remove Sloan catheter. (17) Hypoglycemia ICD Code: E16.2 - Hypoglycemia, unspecified Plan: Patient hypoglycemics since 02/18, started on D5 1/2 ns. Patient still with hypoglycemia today (02/19), discontinue D5 1/2 ns and start D10 percent with half and S. Hypoglycemia likely due to poor oral intake. (18) Urinary retention ICD Code: R33.9 - Retention of urine, unspecified Plan: Patient had Sloan catheter placed for urinary retention. Flomax was increased to 0.4 mg every 12 hours. Patient is having bladder spasms. Will remove Sloan catheter and do voiding trials. Assessment and Plan (1) Transverse myelitis Plan: The patient was admitted for suspected transverse myelitis and started on treatment with IV Solu-Medrol 250 mg IV every 6 hours from 01/27 through 02/02. Patient underwent a lumbar puncture on 01/26 and 02/01. CSF culture negative on 01/26, 02/01. Oligoclonal bands negative as well. CSF serum IgG index not elevated. VDRL nonreactive and cryptococcal antigen negative. Brain MRI obtained on 01/23 did not show acute stroke. It did show however few scattered lacunar infarcts of the brainstem. Moderate chronic white matter changes. MRI of the cervical/thoracic spine showed mild spinal stenosis at the level of C3/C4 to C6/C7. No cord compression. RPR negative. Neurology consulted. Dr. Crenshaw evaluated the patient, repeat CT of the brain on 02/10 negative. Continue PT OT. Out of bed with assistance. (2) Septic shock Plan: Septic shock secondary to suppurative thrombophlebitis thrombophlebitis of the left upper extremity, status post I&D and excision of portion of cephalic vein. Septic shock resolved status post IV fluid administration as well as IV pressors and hydrocortisone at 100 mg IV every 8 hours for relative adrenal insufficiency. (3) HCAP (healthcare-associated pneumonia) Plan: Patient went into acute hypoxemic hypercarbic respiratory failure and had to be intubated emergently on 02/10. At that time the patient was cared by the newspaper editor in the intensive care unit. Diagnostic and therapeutic bronchoscopy was performed of the left lower lobe. It was found that the patient had white mucous plugs which were removed and BAL sent. VQ scan obtained on 02/10 also showed a low probably T4 PE. CT of the chest on showed left lower lobe collapse and consolidation and right lower lobe infiltrate. During the patient's stay in the intensive care unit the patient had the endotracheal tube dislodged and this was advanced by Dr. Hogan and the direct laryngoscopy around 5:30 on 02/11. As part of the supportive treatment the patient was given duo nebs every 6 hours scheduled and when needed. Sputum culture grew MSSA. ID consulted and following the patient managed antibiotics. The patient currently on oxacillin. (4) Acute respiratory failure with hypoxia and hypercarbia Plan: As above (5) Hyperlipidemia Plan: Continue statin. (6) HTN (hypertension) Plan: Blood pressure seems to be slightly elevated. Antihypertensive medications were placed on hold due to the patient's having episodes of hypotension. 02/16 blood pressure still uncontrolled and severely elevated with systolic blood pressure in the 160s. I will increase amlodipine dose to 10 mg by mouth daily and atenolol dose to 50 minutes by mouth daily. 02/17 BP seems to slightly improved. Will continue to monitor. 02/18 BP stable now. Continue Amlodipine 10 mg po daily and atenolol 50 mg po daily. (7) DVT of lower extremity, bilateral Plan: Patient initially started on heparin drip for treatment of DVT, this was placed on hold for lumbar puncture without suspected traumatic tap. Patient is status post IVC filter which was placed on 9/7/17 and as per documentation the patient had not been on DVT prophylaxis. Last LP was on 02/01. The case was discussed by the newspaper editor with Dr. Crenshaw from neurology who agreed that he was appropriate to anticoagulate the patient. Ultrasound of the left upper extremity on 02/10 showed occlusive thrombus in the mid cephalic vein and basilic vein. 02/16 IV heparin drip discontinued on 02/15 and the patient transition to Xarelto. 02/17 Hold Xarelto for now given Hemoccult positive stool. Consult GI for EGD/ colonoscopy. 02/18 Patient on Lovenox SQ awaiting for ED colonoscopy in am. Case discussed with GI ILIA Driver. (8) Diabetes mellitus with hyperglycemia ICD Code: E11.65 - Type 2 diabetes mellitus with hyperglycemia Plan: Blood sugar seems to be stable. Initially treated with insulin drip protocol - DC'd 02/15 02/17 patient had episode of hypoglycemia today. Will decrease insulin Levemir 25 mg subcutaneously twice a day and continue SSI with insulin NovoLog. 02/18 Patient not eating due to abdominal pain and diarrhea. Will hols insulin Levemir, Continue to monitor accuchecks. (9) Hypocalcemia Plan: Likely due to nutritional deficiencies since patient was nothing by mouth. The patient is now able to eat a diet. Patient status post replacement with IV calcium chloride and protein corrected calcium now within normal range. (10) Hypernatremia Plan: Likely secondary to dehydration. The patient started half-normal saline plus potassium chloride, however sodium still slightly elevated from 150-151. I will switch IV fluids to 1/4 NS + KCL and continue to monitor BMP every 6 hours. 02/16 sodium trending down with dropped from 150-147. Continue same management as above mentioned. 02/17 discontinue hypertonic saline since sodium is down to 144 and patient is having good oral intake of fluids. Encouraged by mouth fluids intake to patient. (11) Hypokalemia ICD Code: E87.6 - Hypokalemia Plan: Likely due to nutritional deficiency. Continue to replace orally and monitor BMP. 02/17 resolved. I will order an extra dose of 20 mEq of potassium chloride to get the potassium closer to 4 (12) Acute metabolic encephalopathy Plan: Metabolic encephalopathy likely multifactorial from sepsis, which is resolving. The patient is more awake and alert and following commands. (13) Quadriparesis Plan: Quadriparesis thought to be secondary to transverse myelitis. (14) BREEZY (acute kidney injury) Plan: [place] eye likely secondary to prerenal azotemia and sepsis. Renal ultrasound obtained on 01/23 did not show any evidence of chronic parenchymal disease of both kidneys. No obstructive uropathy or other acute abnormality demonstrated. Creatinine on admission was 4.09 and it has been slowly trending down to 1.8. Continue IV fluids and continue to monitor BUN/creatinine, avoid nephrotoxins. 02/16 creatinine continues to trend down. Appreciate nephrology recommendations. 02/17 I will start the patient on oral Bumex given fluid overload and edema. 02/19 Resume Bumex. GI prophylaxis with Famotidine Hold Xarelto, continue SCDs. Discharge Planning For EGD in am. Patient with hypoglycemia and poor oral intake. Problem Qualifiers (1) Hyperlipidemia: Qualified Codes: E78.5 - Hyperlipidemia, unspecified (2) HTN (hypertension): Qualified Codes: I10 - Essential (primary) hypertension (3) Diabetes mellitus with hyperglycemia: Qualified Codes: E11.65 - Type 2 diabetes mellitus with hyperglycemia (4) Diarrhea: Qualified Codes: A09 - Infectious gastroenteritis and colitis, unspecified (5) Abdominal pain: Qualified Codes: R10.84 - Generalized abdominal pain Abdelrahman Alcantara MD Feb 19, 2017 10:18
[2017-02-19] MEDS ORDERED: BELLADONNA ALKALOIDS/OPIUM 60 MG SUPP RECTAL ONE (10:30)
--- NOTE | 2017-02-19 11:12 | HHI.GIFU ---
Subjective Remarks Moaning in bed, states abdominal pain is worse today, but cannot localize pain and he does not seem to have any significant tenderness on exam on palpation. C/O diarrhea. No n/v today. (Nena Driver) Objective Vitals I&O Vital Signs Date Time Temp Pulse Resp B/P (MAP) Pulse Ox O2 Delivery O2 Flow Rate FiO2 02/19/17 08:38 96 02/19/17 04:55 96.9 97 19 142/93 (109) 96 02/18/17 23:38 97.1 89 19 131/81 (98) 95 02/18/17 21:18 94 02/18/17 19:35 95.7 85 19 138/80 (99) 94 02/18/17 16:00 96.1 91 19 160/97 (118) 95 02/18/17 15:29 94 02/18/17 11:46 98.2 88 19 125/69 (87) 94 I/O 02/18/17 02/18/17 02/18/17 02/19/17 02/19/17 02/19/17 07:00 15:00 23:00 07:00 15:00 23:00 Intake Total 120 ml 460 ml 220 ml 1007 ml Output Total 450 ml 400 ml 235 ml 500 ml Balance -330 ml 60 ml -15 ml 507 ml Intake Oral 120 ml 360 ml 120 ml 120 ml IV Total 100 ml 100 ml 887 ml Output Urine Total 450 ml 400 ml 225 ml 500 ml Drainage Total 10 ml # Voids 0 # Bowel Movements 4 3 0 2 Laboratory Date/Time Source Procedure Growth Status 02/15/17 04:45 Blood Peripheral Aerobic Blood Culture - Preliminary NO GROWTH IN 4 DAYS Resulted 02/15/17 04:45 Blood Peripheral Anaerobic Blood Culture - Preliminary NO GROWTH IN 4 DAYS Resulted 02/01/17 09:55 Cerebral Spinal Fluid Lumbar Puncture Fungal Smear - Final NO FUNGAL ELEMENTS SEEN. Resulted 02/01/17 09:55 Cerebral Spinal Fluid Lumbar Puncture Fungal Culture - Preliminary NO GROWTH IN 2 WEEKS Resulted 02/17/17 05:55 Stool Stool Stool Occult Blood (GREGORY) - Final HEMOCCULT POSITIVE Complete 02/11/17 02:30 Sputum Endotracheal Gram Stain - Final Complete 02/11/17 02:30 Sputum Culture - Final Staphylococcus Aureus Complete 02/11/17 12:20 Urine Catheterized Urine Urine Culture - Final NO GROWTH IN 48 HOURS. Complete 02/11/17 09:10 Abscess Arm Acid Fast Stain - Final NO ACID FAST BACILLI SEEN Resulted 02/11/17 09:10 Abscess Arm Mycobacterial Culture - Preliminary NO GROWTH IN 1 WEEK Resulted Imaging Last Impressions Abdomen X-Ray 02/18/17 0000 Signed Impressions: Service Date/Time: Saturday, February 18, 2017 14:35 - CONCLUSION: Normal examination. Device overlies left upper abdomen. Otherwise unremarkable study. Duy Genao MD Chest X-Ray 02/15/17 0600 Signed Impressions: Service Date/Time: January 06:10 - CONCLUSION: 1. Stable basilar airspace disease and small effusion, left greater than right. Previous left central line has been removed. Trace Holloway MD Upper Extremity Ultrasound 02/10/17 0000 Signed Impressions: Service Date/Time: Friday, February 10, 2017 18:46 - CONCLUSION: Occlusive thrombus in the cephalic and basilic veins. Benjamin Person MD Lung Scan- Nuclear Medicine 02/10/17 0000 Signed Impressions: Service Date/Time: Friday, February 10, 2017 22:17 - CONCLUSION: Low probability pulmonary embolism. Candido Patton MD Head CT 02/10/17 0000 Signed Impressions: Service Date/Time: Friday, February 10, 2017 23:51 - CONCLUSION: Negative noncontrast CT brain. Candido Patton MD Chest CT 02/10/17 0000 Signed Impressions: Service Date/Time: Friday, February 10, 2017 23:56 - CONCLUSION: Left lower lobe collapse with consolidation. Patchy infiltrates the medial right lower lung. Candido Patton MD Abdomen/Pelvis CT 02/10/17 0000 Signed Impressions: Service Date/Time: Friday, February 10, 2017 23:59 - CONCLUSION: 1. Nonobstructing 12 mm calcified stone lower pole right kidney. 2. Atrophic left kidney with significant cortical thinning. 3. Bilateral fat-containing inguinal hernias, large on the right, and moderate on the left. 4. Consolidative collapse of the left lower lobe. Candido Patton MD Wrist X-Ray 02/06/17 0000 Signed Impressions: Service Date/Time: Monday, February 06, 2017 12:50 - CONCLUSION: Minimally displaced distal radius and ulnar fractures. Armando Dodd MD Lumbar Puncture Fluoroscopy 02/01/17 Signed Impressions: Service Date/Time: January 09:35 - CONCLUSION: Uncomplicated fluoroscopically guided lumbar puncture. CSF was clear. Nabeel Peralta MD Head Magnetic Resonance Angiography 01/27/17 Signed Impressions: Service Date/Time: Friday, January 27, 2017 10:33 - CONCLUSION: No intracranial vascular abnormality is identified. There is no aneurysm visualized. Angelo Allen MD IVC Filter Placement X-Ray 01/25/17 Signed Impressions: Service Date/Time: January 10:29 - CONCLUSION: Uncomplicated inferior vena cava filter placement as above. Yung Fowler MD Thoracic Spine MRI 01/24/17 Signed Impressions: Service Date/Time: Tuesday, January 24, 2017 22:29 - CONCLUSION: 1. Mild degenerative spondylosis most prominently at T11-L1 with slight effacement of the anterior thecal sac and left lateral recess. No significant neural foraminal stenosis. 2. No acute fracture. Juan Bhakta MD Renal Ultrasound 01/23/17 Signed Impressions: Service Date/Time: Monday, January 23, 2017 08:53 - CONCLUSION: 1. Evidence of chronic parenchymal disease of both kidneys. No obstructive uropathy or other acute abnormality demonstrated. 2. Trace ascites, nonspecific. Angelo Garrido MD Lumbar Spine MRI 01/23/17 Signed Impressions: Service Date/Time: Monday, January 23, 2017 17:01 - CONCLUSION: 1. At L4-5 is a broad-based disc protrusion with severe central canal and lateral recess stenosis and flattening of the exiting right L4 nerve root. 2. L5-S1 there is a disc protrusion and moderate stenosis with flattening of the exiting L5 nerve roots bilaterally. 3. At L3-4 there is a moderate to severe central stenosis and lateral recess stenosis with mild foraminal stenosis. 4. No acute fracture or spondylolisthesis. Trace Holloway MD Lower Extremity Ultrasound 01/23/17 Signed Impressions: Service Date/Time: Monday, January 23, 2017 09:53 - CONCLUSION: Bilateral focal lower extremity DVT involving the posterior tibial veins. Angelo Garrido MD Cervical Spine MRI 01/23/17 0000 Signed Impressions: Service Date/Time: Monday, January 23, 2017 17:01 - CONCLUSION: 1. Multilevel cervical spine degenerative changes as above. 2. Mild degrees of spinal stenosis at C3/C4-C6/C7. No cord compression or cord signal abnormality. 3. Age indeterminate left paracentral/foraminal disc protrusion at C6/C7. 4. Multilevel foraminal stenosis, most severe on the left at C6/C7. Please see individual levels above. 5. No fracture or subluxation of the cervical spine. Angelo Garrido MD Brain MRI 01/23/17 0000 Signed Impressions: Service Date/Time: Monday, January 23, 2017 17:01 - CONCLUSION: 1. No acute stroke or other acute intracranial abnormality demonstrated. 2. Moderate severity chronic white matter changes, nonspecific but most likely related to chronic small vessel disease. 3. Few scattered tiny lacunar infarcts of the brainstem. 4. Given the findings are not entirely specific, clinical evaluation for possible multiple sclerosis recommended. Angelo Garrido MD Knee X-Ray 01/22/172053 Signed Impressions: Service Date/Time: Sunday, January 22, 2017 21:17 - CONCLUSION: 1. Evidence of moderate to large joint effusion. 2. No acute fracture or malalignment. 3. Mild 3 compartment osteoarthritic change. Benjamin Person MD Hip and Pelvis X-Ray 01/22/172053 Signed Impressions: Service Date/Time: Sunday, January 22, 2017 21:10 - CONCLUSION: 1. Mild to moderate degenerative change of both hips with no acute fracture or malalignment. There is flattening and remodeling of the right humeral head. Benjamin Person MD Physical Exam HEENT: Normocephalic; atraumatic; no jaundice. CHEST: CTA CARDIAC: RRR ABDOMEN: Soft, nondistended, c/o abdominal pain but does not seem to have tenderness on exam- states not really when all areas are palpated; no hepatosplenomegaly; bowel sounds are present in all four quadrants. EXTREMITIES: Generalized edema. edema LUE, wound vac SKIN: Normal; no rash; no jaundice. COPY CUTTER: Lethargic, oriented times three. (Nena Driver) Assessment and Plan Plan ASSESSMENT: - Anemia, Hemoccult positive stools. Never had EGD/Colonoscopy. 10.5/32.8 yesterday. Has bilateral DVTs, requiring anticoagulation, on Xarelto- now on Xarelto and lovenox was started. The plan was for egd/colonoscopy tomorrow, but I do not know if he will be able to tolerate the bowel prep. He had a liquid stool with a "pink tinge" on 02/18. Diarrhea today. - Abdominal pain. C/O worsening abdominal pain and is moaning in bed. However , when areas of abdomen palpated, he denies tenderness. Nurse states palmer is being removed in case he has bladder spasms. Will get repeat CT scan with oral contrast. (Creat improved, but he is not taking much orally). - Anemia, blood loss. 10.5/32.8 yesterday. - Nausea, Inability to tolerate po. KUB (02/18/17)---> Normal examination. Device overlies left abdomen. Otherwise unremarkable study. Not able to take po. C/O worsening pain. Will get CT scan abdomen and pelvis. - Diarrhea. On abx. Plan was for EGD/Colon tomorrow, but I don't think he will be able to tolerate the bowel prep. He is still having diarrhea. ? CDiff. D/W nurse to send stool- ordered. - DVT LE, bilateral. Xarelto on hold, getting lovenox. - Transverse myelitis, per attending. Oxacillin, per ID - LUE Abscess. S/P I&D with excision of left cephalic vein segment. Wound vac. - BREEZY, improved. Per renal. - HTN, DM, per attending. PLAN: - Plan was for egd/colonoscopy tomorrow, doubt he will tolerate bowel prep. Will get CT, if unremarkable, maybe egd/flexible sigmoidoscopy - Obtain consents - Clear liquids - NPO after MN Sunday night - Golytely prep if able to tolerate Sunday afternoon- Notify GI if unable to tolerate - Hold Xarelto - Hold Lovenox after MN - CT scan abdomen and pelvis with po contrast - Send CDiff, ordered and patient continues to have diarrhea, has not been sent. - Monitor HH - Transfuse as necessary - Send stool for CDIff PCR - Monitor HH, transfuse as necessary - Supportive care - Further recommendations to follow based on results of above. - Patient seen and examined by Dr. Shepard and myself and this note is written on her behalf. (Nena Driver) Physician Comments seen, examined agree with above await ct abdomen/pelvis egd/colon in am if able (Jerica Shepard MD) Nena Driver Feb 19, 2017 11:11 Jerica Shepard MD Feb 19, 2017 17:28
[2017-02-19 12:00] VITALS: BP 108/77; PULSE 108; RESP 20; TEMP 96.9; O2SAT 93
[2017-02-19] MEDS ORDERED: DIATRIZOATE MEGLUM/DIATRIZOATE SOD 9 ML CUP PO ONE (12:00)
--- NOTE | 2017-02-19 12:26 | HHI.IDPN ---
Subjective Subjective Remarks Patient is a 62-year-old male, admitted to the hospital for evaluation of pain in his right wrist. He gave a history of falling about a week ago and apparently had immediate pain in the right wrist. He did not seek any medical attention initially because reportedly he was very busy. He eventually presented, and he was found to have a distal ulnar fracture on plain films. He also had some redness and swelling. Orthopedics saw the patient, and was being treated conservatively with the splint. During this hospitalization also he started complaining of generalized weakness but more so in his lower extremity than his upper extremity. He had swelling in both lower extremity which revealed evidence of DVT in the posterior tibial veins. Neurology had seen the patient and he underwent lumbar puncture which apparently was traumatic. Patient was therefore not given anticoagulation because of the traumatic LP, and he underwent placement of an IVC filter on January 25. Patient had another lumbar puncture on February 01. He was felt to have transverse myelitis, and he was given high-dose IV Solu-Medrol from January 27 to February 02. There was apparently some improvement in his weakness. The imaging studies done for his weakness showed some spinal stenosis, and neurosurgery was consult that and recommended that there was no surgical intervention to be done. Patient has been stabilizing, but last night apparently deteriorated, and he ended up getting intubated, and had significant hypotension requiring pressors. There was also an ultrasound done of his left upper extremity which showed DVT, and there was evidence of superior 2 thrombophlebitis. Vascular surgery was consult to it and he had IND on his left upper extremity. Patient has had some fevers since yesterday. 2 blood cultures were done yesterday and they're now reported as growing gram-positive cocci in [place] in clusters. He is currently sedated and intubated. He is on Levophed and vasopressin. A central line was placed as well as a femoral a line. He apparently had an IV in his left upper extremity and that was removed yesterday. Patient also has history of chronic kidney disease, and nephrology evaluated the patient. He was just being monitored for his renal insufficiency. Infectious disease consultation has been requested to evaluate the patient. Notes reviewed D/W ROHINI D/W Dr Jeffery Having diarrhea BM accdg to ROHINI Martins ok Being cleaned currently Last (+) 02/12 Stool C diff - pending Antibiotics Oxacillin Lines PIV Past Medical History Reviewed Allergies: Coded Allergies: levofloxacin (Verified Allergy, Severe, 01/22/17) Objective . Vital Signs Date Time Temp Pulse Resp B/P (MAP) Pulse Ox O2 Delivery O2 Flow Rate FiO2 02/19/17 08:38 96 02/19/17 04:55 96.9 97 19 142/93 (109) 96 02/18/17 23:38 97.1 89 19 131/81 (98) 95 02/18/17 21:18 94 02/18/17 19:35 95.7 85 19 138/80 (99) 94 02/18/17 16:00 96.1 91 19 160/97 (118) 95 02/18/17 15:29 94 02/19/17 02/19/17 02/20/17 15:00 23:00 07:00 Output Total 800 ml Balance -800 ml Output Urine Total 800 ml . Laboratory Tests Test 02/18/17 05:40 White Blood Count 11.4 TH/MM3 Red Blood Count 3.99 MIL/MM3 Hemoglobin 10.5 GM/DL Hematocrit 32.8 % Mean Corpuscular Volume 82.3 FL Mean Corpuscular Hemoglobin 26.4 PG Mean Corpuscular Hemoglobin Concent 32.1 % Red Cell Distribution Width 19.6 % Platelet Count 251 TH/MM3 Mean Platelet Volume 8.8 FL CBC Comment AUTO DIFF Differential Total Cells Counted 100 Neutrophils % (Manual) 52 % Band Neutrophils % 8 % Lymphocytes % 24 % Monocytes % 8 % Eosinophils % 4 % Neutrophils # (Manual) 7.3 TH/MM3 Metamyelocytes 1 % Myelocytes 3 % Differential Comment FINAL DIFF MANUAL Platelet Estimate NORMAL Platelet Morphology Comment NORMAL Tear Drop Cells 1+ Hematology Comments Laboratory Tests Test 02/18/17 05:40 Blood Urea Nitrogen 24 MG/DL Creatinine 1.30 MG/DL Random Glucose 52 MG/DL Total Protein 4.5 GM/DL Albumin 1.7 GM/DL Calcium Level 7.1 MG/DL Phosphorus Level 3.0 MG/DL Magnesium Level 1.6 MG/DL Alkaline Phosphatase 114 U/L Aspartate Amino Transf (AST/SGOT) 33 U/L Alanine Aminotransferase (ALT/SGPT) 23 U/L Total Bilirubin 0.3 MG/DL Sodium Level 145 MEQ/L Potassium Level 4.7 MEQ/L Chloride Level 113 MEQ/L Carbon Dioxide Level 22.8 MEQ/L Anion Gap 9 MEQ/L Estimat Glomerular Filtration Rate 56 ML/MIN Protein Corrected Calcium 8.5 MG/DL Microbiology Date/Time Source Procedure Growth Status 02/17/17 05:55 Stool Stool Stool Occult Blood (GREGORY) - Final HEMOCCULT POSITIVE Complete Imaging Last Impressions Chest X-Ray 02/12/17 0600 Signed Impressions: Service Date/Time: Sunday, February 12, 2017 03:32 - CONCLUSION: 1. Support apparatus in good position. Relatively stable basilar airspace disease and pleural effusions. Trace Holloway MD Upper Extremity Ultrasound 02/10/17 0000 Signed Impressions: Service Date/Time: Friday, February 10, 2017 18:46 - CONCLUSION: Occlusive thrombus in the cephalic and basilic veins. Benjamin Person MD Lung Scan-V Nuclear Medicine 02/10/17 0000 Signed Impressions: Service Date/Time: Friday, February 10, 2017 22:17 - CONCLUSION: Low probability pulmonary embolism. Candido Patton MD Head CT 02/10/17 0000 Signed Impressions: Service Date/Time: Friday, February 10, 2017 23:51 - CONCLUSION: Negative noncontrast CT brain. Candido Patton MD Chest CT 02/10/17 0000 Signed Impressions: Service Date/Time: Friday, February 10, 2017 23:56 - CONCLUSION: Left lower lobe collapse with consolidation. Patchy infiltrates the medial right lower lung. Candido Patton MD Abdomen/Pelvis CT 02/10/17 0000 Signed Impressions: Service Date/Time: Friday, February 10, 2017 23:59 - CONCLUSION: 1. Nonobstructing 12 mm calcified stone lower pole right kidney. 2. Atrophic left kidney with significant cortical thinning. 3. Bilateral fat-containing inguinal hernias, large on the right, and moderate on the left. 4. Consolidative collapse of the left lower lobe. Candido Patton MD Abdomen X-Ray 02/10/17 0000 Signed Impressions: Service Date/Time: Friday, February 10, 2017 08:14 - CONCLUSION: No acute abdominal abnormality is identified. Angelo Allen MD Wrist X-Ray 02/06/17 0000 Signed Impressions: Service Date/Time: Monday, February 06, 2017 12:50 - CONCLUSION: Minimally displaced distal radius and ulnar fractures. Armando Dodd MD Lumbar Puncture Fluoroscopy 02/01/17 Signed Impressions: Service Date/Time: January 09:35 - CONCLUSION: Uncomplicated fluoroscopically guided lumbar puncture. CSF was clear. Nabeel Peralta MD Head Magnetic Resonance Angiography 01/27/17 Signed Impressions: Service Date/Time: Friday, January 27, 2017 10:33 - CONCLUSION: No intracranial vascular abnormality is identified. There is no aneurysm visualized. Angelo Allen MD IVC Filter Placement X-Ray 01/25/17 Signed Impressions: Service Date/Time: January 10:29 - CONCLUSION: Uncomplicated inferior vena cava filter placement as above. Yung Fowler MD Thoracic Spine MRI 01/24/17 Signed Impressions: Service Date/Time: Tuesday, January 24, 2017 22:29 - CONCLUSION: 1. Mild degenerative spondylosis most prominently at T11-L1 with slight effacement of the anterior thecal sac and left lateral recess. No significant neural foraminal stenosis. 2. No acute fracture. Juan Bhakta MD Renal Ultrasound 01/23/17 Signed Impressions: Service Date/Time: Monday, January 23, 2017 08:53 - CONCLUSION: 1. Evidence of chronic parenchymal disease of both kidneys. No obstructive uropathy or other acute abnormality demonstrated. 2. Trace ascites, nonspecific. Angelo Garrido MD Lumbar Spine MRI 01/23/17 Signed Impressions: Service Date/Time: Monday, January 23, 2017 17:01 - CONCLUSION: 1. At L4-5 is a broad-based disc protrusion with severe central canal and lateral recess stenosis and flattening of the exiting right L4 nerve root. 2. L5-S1 there is a disc protrusion and moderate stenosis with flattening of the exiting L5 nerve roots bilaterally. 3. At L3-4 there is a moderate to severe central stenosis and lateral recess stenosis with mild foraminal stenosis. 4. No acute fracture or spondylolisthesis. Trace Holloway MD Lower Extremity Ultrasound 01/23/17 Signed Impressions: Service Date/Time: Monday, January 23, 2017 09:53 - CONCLUSION: Bilateral focal lower extremity DVT involving the posterior tibial veins. Angelo Garrido MD Cervical Spine MRI 01/23/17 0000 Signed Impressions: Service Date/Time: Monday, January 23, 2017 17:01 - CONCLUSION: 1. Multilevel cervical spine degenerative changes as above. 2. Mild degrees of spinal stenosis at C3/C4-C6/C7. No cord compression or cord signal abnormality. 3. Age indeterminate left paracentral/foraminal disc protrusion at C6/C7. 4. Multilevel foraminal stenosis, most severe on the left at C6/C7. Please see individual levels above. 5. No fracture or subluxation of the cervical spine. Angelo Garrido MD Brain MRI 01/23/17 0000 Signed Impressions: Service Date/Time: Monday, January 23, 2017 17:01 - CONCLUSION: 1. No acute stroke or other acute intracranial abnormality demonstrated. 2. Moderate severity chronic white matter changes, nonspecific but most likely related to chronic small vessel disease. 3. Few scattered tiny lacunar infarcts of the brainstem. 4. Given the findings are not entirely specific, clinical evaluation for possible multiple sclerosis recommended. Angelo Garrido MD Knee X-Ray 01/22/172053 Signed Impressions: Service Date/Time: Sunday, January 22, 2017 21:17 - CONCLUSION: 1. Evidence of moderate to large joint effusion. 2. No acute fracture or malalignment. 3. Mild 3 compartment osteoarthritic change. Benjamin Person MD Hip and Pelvis X-Ray 01/22/172053 Signed Impressions: Service Date/Time: Sunday, January 22, 2017 21:10 - CONCLUSION: 1. Mild to moderate degenerative change of both hips with no acute fracture or malalignment. There is flattening and remodeling of the right humeral head. Benjamin Person MD Physical Exam GENERAL: NAd SKIN: Cool and dry. No generalized rash, no ecchymoses and no evidence of embolic lesions. EYES: [place] conjunctiva. No petechia or hemorrhage. Pupils equal, round and reactive to light. No scleral icterus. EARS, NOSE AND THROAT: Nose without bleeding or purulent nasal discharge. He is orally intubated NECK: Trachea midline. Supple and no meningeal signs CARDIOVASCULAR: Regular rate and rhythm. Soft heart sounds. No murmurs, rubs or gallops heard RESPIRATORY: Coarse BS bilaterally ABDOMEN: Soft, nondistended, bowel sounds present and normoactive, no reaction to palpation. No guarding. EXTREMITIES: No clubbing, cyanosis. Both hands less edematous. Has evidence of multiple gouty tophi in both hands and feet. LUE - there is a 2.5 cm incision with wound vac in place, less induration NEUROLOGICAL: Awake, focusing PSYCHIATRIC: Calmer LINE: Line with no evidence of infection : Sloan in place, urine looks clear Assessment & Plan Remarks IMPRESSION MSSA sepsis, with shock, due to suppurative thrombophlebitis LUE, S/P I and D and excision of portion of cephalic vein - off pressors Respiratory failure, CXR now with infiltrates - sputum with MSSA - extubated Recent Rx 7 days high dose solumedrol for transverse myelitis Wu LE DVT has IVC filter placed 01/25 - ?hypercoagulable state Chronic kidney disease Known DM, HTN Gouty tophi both hands and feet Diarrhea, R/O C diff RECOMMENDATION Continue IV Oxacillin - plan 6 weeks for Rx endovascular infection - anticipated end date Mar 25 When stable, will order PICC as we get close to D/C Agree with checking C diff Add Lactinex Monitor progress Will need 6 weeks IV Abx from date of last (+) BC Will work with CM about D/C since patient has no payor source D/W RN D/W Irene Daily MD Feb 19, 2017 12:26
[2017-02-19] MEDS: LACTOBACILLUS ACIDOPHILUS TAB PO SCH ×2 (13:00→16:22)
[2017-02-19] MEDS: ENOXAPARIN SODIUM 100 MG/ML SYRINGE SQ SCH ×2 (13:05)
[2017-02-19 13:33] LABS: C. DIFF EPI 027 PRESUMPTIVE NEGATIVE (NEGATIVE)
--- NOTE | 2017-02-19 13:51 | HHI.NPPN ---
Subjective History of Present Illness 61-year-old with history of urinary stone Additional Remarks Diarrhea earlier today, feeling tired. Review of Systems General Constitutional: Fatigue Objective Data Data 02/19/17 02/20/17 19:00 07:00 Output Total 800 ml Balance -800 ml Output Urine Total 800 ml Vital Signs Date Time Temp Pulse Resp B/P (MAP) Pulse Ox O2 Delivery O2 Flow Rate FiO2 02/19/17 08:38 96 02/19/17 04:55 96.9 97 19 142/93 (109) 96 02/18/17 23:38 97.1 89 19 131/81 (98) 95 02/18/17 21:18 94 02/18/17 19:35 95.7 85 19 138/80 (99) 94 02/18/17 16:00 96.1 91 19 160/97 (118) 95 02/18/17 15:29 94 -: 02/18/17 0540 02/18/17 0540 Physical Exam Neck Neck Exam: Neck Supple Pulmonary Resp Exam: Clear Bilaterally, Breath Sounds Equal Cardiology CV Exam: Regular, Normal Sinus Rhythm Gastrointestinal/Abdomen GI Exam: Soft, Non-Tender, Bowel Sounds Present Extremeties Extremities Exam: Trace Edema Neurologic Neuro Exam: Sedated Assessment/Plan Problem List: (1) Acute renal failure ICD Codes: N17.9 - Acute kidney failure, unspecified Status: Acute Plan: Patient developed Hypotension,sepsis staph aureus respiratory failure and increase WBC. Had aspiration pneumonia, developed sepsis with ARF again creatinine declined slightly post hydration BREEZY resolving - Creatinine 1.2 -> 1.3 yesterday. On Vanco follow levels Follow the urine out put and BMP. Heme + stools - EGD/Colonoscopy Sunday. I will follow PRN bases (2) CKD (chronic kidney disease) stage 3, GFR 30-59 ml/min ICD Codes: N18.3 - Chronic kidney disease, stage 3 (moderate) Status: Chronic Plan: Ultrasound revealed chronic kidney disease there is no kidney stones (3) Diabetes ICD Codes: E11.9 - Type 2 diabetes mellitus without complications Plan: Continue to monitor (4) Distal end of ulna fracture, closed ICD Codes: S52.609A - Unspecified fracture of lower end of unspecified ulna, initial encounter for closed fracture Status: Acute Plan: Orthopedic is following Problem Qualifiers (1) Acute renal failure: Qualified Codes: N17.9 - Acute kidney failure, unspecified Laura Liao MD Feb 19, 2017 13:51
[2017-02-19 14:05] LABS: BICARBONATE 20.6 MEQ/L (21.0-32.0); MAGNESIUM 1.2 MG/DL (1.5-2.5); POTASSIUM 4.1 MEQ/L (3.5-5.1)
[2017-02-19 14:06] LABS: AUTOMATED NEUTROPHIL # 11.9 TH/MM3 (1.8-7.7); BASOPHIL # 0.1 TH/MM3 (0-0.2); BASOPHIL % 0.6 % (0.0-2.0); EOSINOPHIL # 0.5 TH/MM3 (0-0.4); EOSINOPHIL % 3.2 % (0.0-4.0); HEMATOCRIT 38.5 % (39.0-51.0); LYMPH % 10.8 % (9.0-44.0); LYMPHOCYTE # 1.7 TH/MM3 (1.0-4.8); MEAN CELL VOLUME 82.8 FL (80.0-100.0); MEAN CORPUSCULAR HEMOGLOBIN 26.7 PG (27.0-34.0); MEAN CORPUSCULAR HGB CONC 32.2 % (32.0-36.0); MONO % 9.1 % (0.0-8.0); NEUT % 76.3 % (16.0-70.0); PLATELET COUNT 238 TH/MM3 (150-450); RED BLOOD COUNT 4.65 MIL/MM3 (4.50-5.90); RED CELL DISTRIBUTION WIDTH 20.1 % (11.6-17.2); WHITE BLOOD COUNT 15.5 TH/MM3 (4.0-11.0)
[2017-02-19 14:07] LABS: HEMO FLAGS AUTO DIFF
[2017-02-19 14:08] LABS: CALCIUM-PROTEIN CORRECTED 8.1 MG/DL (8.5-10.1); TOTAL BILIRUBIN ADULT 0.3 MG/DL (0.2-1.0)
[2017-02-19 14:31] LABS: BANDS 3 % (0-6); EOSINOPHILS 2 % (0-4); METAMYELOCYTES 7 % (0-1); MYELOCYTES 1 % (0-0); NEUTROPHIL # MANUAL DIFF 11.9 TH/MM3 (1.8-7.7); PLATELET ESTIMATE SMEAR NORMAL (NORMAL); POLYS (SEG NEUTROPHILS) 66 % (16-70); WBC DIFF SAMPLE 100
[2017-02-19 14:32] LABS: PLATELET MORPHOLOGY ENLARGED (NORMAL); SCAN/DIFF FINAL DIFF MANUAL
[2017-02-19 16:00] VITALS: BP 109/69; PULSE 98; RESP 20; TEMP 100; O2SAT 93
[2017-02-19] MEDS ORDERED: PEG (High)/E-LYTE SOLN 4000 ML BTL PO ONE (16:00)
[2017-02-19] MEDS ORDERED: DEXTROSE 10%-1/2 NS 1000 ML IV SCH ×2 (20:00)
[2017-02-19 20:54] VITALS: BP 146/82; PULSE 99; RESP 18; TEMP 96.2; O2SAT 99
--- NOTE | 2017-02-19 20:57 | RADRPT ---
EXAM DATE/TIME: 02/19/2017 19:09 [facility] COMPARISON: CT ABDOMEN & PELVIS W/O CONTRAST, February 10, 2017, 23:59. INDICATIONS : Diffuse abdominal pain with diarrhea. ORAL CONTRAST: Prescribed oral contrast ingested. RADIATION DOSE: 24.99 CTDIvol (mGy) ; Patient body habitus MEDICAL HISTORY : Hypertension. Renal calculi. SURGICAL HISTORY : IVC Filter placement. ENCOUNTER: Initial ACUITY: 1 day PAIN SCALE: 10/10 LOCATION: Bilateral abdomen TECHNIQUE: Volumetric scanning of the abdomen and pelvis was performed. Using automated exposure control and adjustment of the mA and/or kV according to patient size, radiation dose was kept as low as reasonably achievable to obtain optimal diagnostic quality images. DICOM format image data is av ailable electronically for review and comparison. FINDINGS: There is mild dilatation of the right collecting system and right ureter. There are ca lcifications seen at the posterior inferior right mason. Overall this area of calcification measures 1.5 x 1.1 x 0.3 cm. These could be small layering calcifications. There also appear to be small la yering calcifications seen dependently in the right renal pelvis and at the proximal right mid ureter . An obstructing stone filling the entire ureter is not seen. There is chronic atrophy of the left kidney with the left kidney being extremely small measuring 6.4 cm in length with very thin renal cortex. No dilatation of the collecting system is seen. There is a small amount of air seen within the urinary bladder. This should be correlated if there has been an y recent catheterization. The liver, spleen, pancreas and adrenal glands are unremarkable for a noncontrast CT examination. The gallbladder is unremarkable. The bowel is unremarkable. There is prominent fat within the inguinal canals bilaterally which could potentially represent hernias. No bowel is seen in the inguinal heavenly ons. There are bilateral pleural effusions being greater on the left than the right. There is left lower lobe consolidation or atelectasis. This was present previously. There is degenerative change in the lumbar spine. There is degenerative change at the hip joints bilaterally being worse on the left. T here is hypertrophic change at the proximal hamstring tendon attachments sites at the ischial tuberos ities. CONCLUSION: 1. Areas of calcification seen in the right renal collecting system, right renal pelvis, and proximal right ureter. These appear to layer and be dependent suggesting likely to represent smaller areas of milk of calcium or small stones. There is mild dilatation of the right renal collecting system and right ureter. A definite obstructing stone at this time is not seen. 2. A small amount of air within the urinary bladder. This should be correlated with any recent cathet erization. 3. Mild bilateral pleural effusions with accompanying atelectasis or consolidation at the left base. The consolidation was present previously. 4. Prominent degenerative change in the lumbar spine and at the hip joints bilaterally. Angelo Manzo MD on February 19, 2017 at 20:28 Board Certified Radiologist. This report was verified electronically.
[2017-02-19] MEDS: FAMOTIDINE 20 MG/2 ML VIAL IV PUSH SCH (22:33)
[2017-02-19] MEDS: ATORVASTATIN 10 MG TAB PO SCH (22:34)
[2017-02-20] VITALS (12 sets, daily range): BP systolic 105–168; BP diastolic 57–95; PULSE 60–122; RESP 15–26; TEMP 96.7–101.5; O2SAT 92–100
[2017-02-20] MEDS: ENOXAPARIN SODIUM 100 MG/ML SYRINGE SQ SCH
[2017-02-20] MEDS: OXACILLIN INJ 2 GM in SODIUM CHLORIDE 0.9% INJ 100 ML IV SCH ×3 (02:22→09:18)
[2017-02-20] MEDS: MORPHINE SULFATE 4 MG/ML INJ IV PUSH PRN (03:38)
[2017-02-20] MEDS: POTASSIUM PHOSPHATE/SODIUM PHOSPHATE 250 MG TAB PO SCH ×3 (06:40→22:08)
[2017-02-20] MEDS: INSULIN ASPART SUPPLEMENTAL SCALE SQ SCH (08:00)
[2017-02-20] MEDS: LACTOBACILLUS ACIDOPHILUS TAB PO SCH ×3 (09:00→17:51)
[2017-02-20] MEDS: DOCUSATE SODIUM 50 MG/SENNA 8.6 MG TAB PO SCH ×2 (09:00→20:23)
[2017-02-20] MEDS: TAMSULOSIN HCL 0.4 MG CAP PO SCH ×2 (09:00→20:23)
[2017-02-20] MEDS: amLODIPine BESYLATE 5 MG TAB PO SCH (09:00)
[2017-02-20] MEDS: ATENOLOL 25 MG TAB PO SCH (09:08)
[2017-02-20] MEDS: SODIUM CHLORIDE 0.9% FLUSH 10 ML FLUSH IV FLUSH SCH ×2 (09:15→20:23)
[2017-02-20 10:11] LABS: AUTOMATED NEUTROPHIL # 14.6 TH/MM3 (1.8-7.7); BASOPHIL % 0.2 % (0.0-2.0); EOSINOPHIL # 0.4 TH/MM3 (0-0.4); EOSINOPHIL % 2.3 % (0.0-4.0); HEMATOCRIT 32.8 % (39.0-51.0); LYMPH % 9.1 % (9.0-44.0); LYMPHOCYTE # 1.7 TH/MM3 (1.0-4.8); MEAN CELL VOLUME 84.6 FL (80.0-100.0); MEAN CORPUSCULAR HEMOGLOBIN 27.2 PG (27.0-34.0); MEAN CORPUSCULAR HGB CONC 32.2 % (32.0-36.0); NEUT % 79.4 % (16.0-70.0); PLATELET COUNT 277 TH/MM3 (150-450); RED BLOOD COUNT 3.88 MIL/MM3 (4.50-5.90); RED CELL DISTRIBUTION WIDTH 19.7 % (11.6-17.2); WHITE BLOOD COUNT 18.4 TH/MM3 (4.0-11.0)
[2017-02-20 10:14] LABS: HEMO FLAGS AUTO DIFF
[2017-02-20 10:56] LABS: BANDS 16 % (0-6); EOSINOPHILS 2 % (0-4); MYELOCYTES 4 % (0-0); NEUTROPHIL # MANUAL DIFF 14.7 TH/MM3 (1.8-7.7); POLYS (SEG NEUTROPHILS) 60 % (16-70); WBC DIFF SAMPLE 100
[2017-02-20 10:57] LABS: PLATELET ESTIMATE SMEAR NORMAL (NORMAL); PLATELET MORPHOLOGY NORMAL (NORMAL); POLYCHROMASIA 2.3 % (0.0-1.9); SCAN/DIFF FINAL DIFF MANUAL
[2017-02-20 11:05] LABS: CALCIUM-PROTEIN CORRECTED 8.1 MG/DL (8.5-10.1)
[2017-02-20] MEDS ORDERED: VANCOMYCIN INJ 1,000 MG in SODIUM CHLOR 0.9% 250 ML INJ 250 ML IV ONE (11:45)
[2017-02-20] MEDS ORDERED: Vancomycin Consult Pharmacy 1 EA OTHER SCH ×2 (11:45→14:00)
[2017-02-20] MEDS ORDERED: VANCOMYCIN INJ 1,000 MG in SODIUM CHLOR 0.9% 250 ML INJ 250 ML IV SCH (11:45)
--- NOTE | 2017-02-20 11:53 | HHI.PR ---
Subjective Remarks Rapid response clled by RN due to respiratory distress. Patient went down for EGD/Colonoscopy but procedure was not done due to respiratory issues patient c/o sob, denies cp still having diarrhea c diff negative Objective Vitals Vital Signs Date Time Temp Pulse Resp B/P (MAP) Pulse Ox O2 Delivery O2 Flow Rate FiO2 02/20/17 08:00 100.2 122 26 162/95 (117) 92 02/20/17 04:03 96.7 98 19 153/63 (93) 98 02/20/17 01:30 96.9 97 18 168/69 (102) 98 02/19/17 20:54 96.2 99 18 146/82 (103) 99 02/19/17 16:00 100.0 98 20 109/69 (82) 93 02/19/17 12:00 96.9 108 20 108/77 (87) 93 I/O 02/19/17 02/19/17 02/19/17 02/20/17 02/20/17 02/20/17 07:00 15:00 23:00 07:00 15:00 23:00 Intake Total 1007 ml 240 ml 200 ml 100 ml Output Total 500 ml 800 ml 550 ml Balance 507 ml -800 ml 240 ml -350 ml 100 ml Intake Oral 120 ml 240 ml 0 ml IV Total 887 ml 200 ml 100 ml Output Urine Total 500 ml 800 ml 550 ml Bladder Scan Volume Amount 408 ml # Voids 0 # Bowel Movements 2 4 0 2 Result Diagram: 02/20/17 0850 02/20/17 0850 Objective Remarks AAOx3 NAD Coarse Ronchi on right lung field and Abdomen soft, trender to palpation of lower abdomen +2 edema in lower extremities bilaterally. scrotal edema present Procedures IVC filter placement 01/25/2017 LP 01/26/2017 A/P Problem List: (1) Transverse myelitis ICD Code: G37.3 - Acute transverse myelitis in demyelinating disease of central nervous system Status: Acute (2) Septic shock ICD Code: A41.9 - Sepsis, unspecified organism; R65.21 - Severe sepsis with septic shock Status: Resolved (3) HCAP (healthcare-associated pneumonia) ICD Code: J18.9 - Pneumonia, unspecified organism (4) Acute respiratory failure with hypoxia and hypercarbia ICD Code: J96.01 - Acute respiratory failure with hypoxia; J96.02 - Acute respiratory failure with hypercapnia Status: Resolved (5) Hyperlipidemia ICD Code: E78.5 - Hyperlipidemia, unspecified Status: Chronic (6) HTN (hypertension) ICD Code: I10 - Essential (primary) hypertension (7) DVT of lower extremity, bilateral ICD Code: I82.403 - Acute embolism and thrombosis of unspecified deep veins of lower extremity, bilateral (8) Diabetes mellitus with hyperglycemia ICD Code: E11.65 - Type 2 diabetes mellitus with hyperglycemia (9) Hypocalcemia ICD Code: E83.51 - Hypocalcemia (10) Hypernatremia ICD Code: E87.0 - Hyperosmolality and hypernatremia (11) Hypokalemia ICD Code: E87.6 - Hypokalemia (12) Acute metabolic encephalopathy ICD Code: G93.41 - Metabolic encephalopathy (13) Quadriparesis ICD Code: G82.50 - Quadriplegia, unspecified Status: Acute (14) BREEZY (acute kidney injury) ICD Code: N17.9 - Acute kidney failure, unspecified (15) Diarrhea ICD Code: R19.7 - Diarrhea, unspecified (16) Abdominal pain ICD Code: R10.9 - Unspecified abdominal pain (17) Hypoglycemia ICD Code: E16.2 - Hypoglycemia, unspecified (18) Urinary retention ICD Code: R33.9 - Retention of urine, unspecified (19) Acute hypoxemic respiratory failure ICD Code: J96.01 - Acute respiratory failure with hypoxia Plan: Patient with severe respiratory distress, labored breathing, currently on 100% NRB mas sating only 93%. Impending respiratory failure. Tranfer to ICU, obtain CXR, ABG STAT. Also patient with worsening leukocytosis and sepsis with worsening encephalopathy. Discussed the case in Detail with Dr Mendoza who will take over the patient's care. Patient will likely need intubation and mechanical ventilation once he arrives to the unit. (20) Sepsis ICD Code: A41.9 - Sepsis, unspecified organism Plan: Suspect aspiration pneumonia due to worsening encephalopathy. Patient with worsening leukocytosis and respiratory distress. Check blood cultures, urinalysis - I will broaden antibiotic coverage to IV zosyn and Vancomycin. ID following. Assessment and Plan (1) Transverse myelitis Plan: The patient was admitted for suspected transverse myelitis and started on treatment with IV Solu-Medrol 250 mg IV every 6 hours from 01/27 through 02/02. Patient underwent a lumbar puncture on 01/26 and 02/01. CSF culture negative on 01/26, 02/01. Oligoclonal bands negative as well. CSF serum IgG index not elevated. VDRL nonreactive and cryptococcal antigen negative. Brain MRI obtained on 01/23 did not show acute stroke. It did show however few scattered lacunar infarcts of the brainstem. Moderate chronic white matter changes. MRI of the cervical/thoracic spine showed mild spinal stenosis at the level of C3/C4 to C6/C7. No cord compression. RPR negative. Neurology consulted. Dr. Crenshaw evaluated the patient, repeat CT of the brain on 02/10 negative. Continue PT OT. Out of bed with assistance. (2) Septic shock Plan: Septic shock secondary to suppurative thrombophlebitis thrombophlebitis of the left upper extremity, status post I&D and excision of portion of cephalic vein. Septic shock resolved status post IV fluid administration as well as IV pressors and hydrocortisone at 100 mg IV every 8 hours for relative adrenal insufficiency. (3) HCAP (healthcare-associated pneumonia) Plan: Patient went into acute hypoxemic hypercarbic respiratory failure and had to be intubated emergently on 02/10. At that time the patient was cared by the brickmason helper in the intensive care unit. Diagnostic and therapeutic bronchoscopy was performed of the left lower lobe. It was found that the patient had white mucous plugs which were removed and BAL sent. VQ scan obtained on 02/10 also showed a low probably T4 PE. CT of the chest on showed left lower lobe collapse and consolidation and right lower lobe infiltrate. During the patient's stay in the intensive care unit the patient had the endotracheal tube dislodged and this was advanced by Dr. Hogan and the direct laryngoscopy around 5:30 on 02/11. As part of the supportive treatment the patient was given duo nebs every 6 hours scheduled and when needed. Sputum culture grew MSSA. ID consulted and following the patient managed antibiotics. The patient currently on oxacillin. (4) Acute respiratory failure with hypoxia and hypercarbia Plan: As above (5) Hyperlipidemia Plan: Continue statin. (6) HTN (hypertension) Plan: Blood pressure seems to be slightly elevated. Antihypertensive medications were placed on hold due to the patient's having episodes of hypotension. 02/16 blood pressure still uncontrolled and severely elevated with systolic blood pressure in the 160s. I will increase amlodipine dose to 10 mg by mouth daily and atenolol dose to 50 minutes by mouth daily. 02/17 BP seems to slightly improved. Will continue to monitor. 02/18 BP stable now. Continue Amlodipine 10 mg po daily and atenolol 50 mg po daily. (7) DVT of lower extremity, bilateral Plan: Patient initially started on heparin drip for treatment of DVT, this was placed on hold for lumbar puncture without suspected traumatic tap. Patient is status post IVC filter which was placed on 01/25/17 and as per documentation the patient had not been on DVT prophylaxis. Last LP was on 02/01. The case was discussed by the brickmason helper with Dr. Crenshaw from neurology who agreed that he was appropriate to anticoagulate the patient. Ultrasound of the left upper extremity on 02/10 showed occlusive thrombus in the mid cephalic vein and basilic vein. 02/16 IV heparin drip discontinued on 02/15 and the patient transition to Xarelto. 02/17 Hold Xarelto for now given Hemoccult positive stool. Consult GI for EGD/ colonoscopy. 02/18 Patient on Lovenox SQ awaiting for ED colonoscopy in am. Case discussed with GI ILIA Driver. 02/20 Continue Lovenox SQ. (8) Diabetes mellitus with hyperglycemia ICD Code: E11.65 - Type 2 diabetes mellitus with hyperglycemia Plan: Blood sugar seems to be stable. Initially treated with insulin drip protocol - DC'd 02/15 02/17 patient had episode of hypoglycemia today. Will decrease insulin Levemir 25 mg subcutaneously twice a day and continue SSI with insulin NovoLog. 02/18 Patient not eating due to abdominal pain and diarrhea. Will hols insulin Levemir, Continue to monitor accuchecks. (9) Hypocalcemia Plan: Likely due to nutritional deficiencies since patient was nothing by mouth. The patient is now able to eat a diet. Patient status post replacement with IV calcium chloride and protein corrected calcium now within normal range. (10) Hypernatremia Plan: Likely secondary to dehydration. The patient started half-normal saline plus potassium chloride, however sodium still slightly elevated from 150-151. I will switch IV fluids to 1/4 NS + KCL and continue to monitor BMP every 6 hours. 02/16 sodium trending down with dropped from 150-147. Continue same management as above mentioned. 02/17 discontinue hypertonic saline since sodium is down to 144 and patient is having good oral intake of fluids. Encouraged by mouth fluids intake to patient. 02/20 Resolved. Monitor BMP. (11) Hypokalemia ICD Code: E87.6 - Hypokalemia Plan: Likely due to nutritional deficiency. Continue to replace orally and monitor BMP. 02/17 resolved. I will order an extra dose of 20 mEq of potassium chloride to get the potassium closer to 4 (12) Acute metabolic encephalopathy Plan: Metabolic encephalopathy likely multifactorial from sepsis, which is resolving. The patient is more awake and alert and following commands. 02/20 worsening. (13) Quadriparesis Plan: Quadriparesis thought to be secondary to transverse myelitis. (14) BREEZY (acute kidney injury) Plan: AK eye likely secondary to prerenal azotemia and sepsis. Renal ultrasound obtained on 01/23 did not show any evidence of chronic parenchymal disease of both kidneys. No obstructive uropathy or other acute abnormality demonstrated. Creatinine on admission was 4.09 and it has been slowly trending down to 1.8. Continue IV fluids and continue to monitor BUN/creatinine, avoid nephrotoxins. 02/16 creatinine continues to trend down. Appreciate nephrology recommendations. 02/17 I will start the patient on oral Bumex given fluid overload and edema. 02/19 Resume Bumex. (15) Diarrhea Plan: Check for berta for C diff PCR ---> Negative Follow up GI recommendations. (16) Abdominal pain Plan: KUB reviewed by me without abnormalities Lower abdominal pain likely related to bladder spasms. Sloan removed. GI consulted and following. EGD/Colonoscopy not done due to respiratory issues. (17) Hypoglycemia ICD Code: E16.2 - Hypoglycemia, unspecified Plan: Patient hypoglycemics since 02/18, started on D5 1/2 ns. Patient still with hypoglycemia today (02/19), discontinue D5 1/2 ns and start D10 percent with half and S. Hypoglycemia likely due to poor oral intake. 02/20 Due to poor oral intake. Continue D10 NS + 1/2 NS (18) Urinary retention Plan: Patient had Sloan catheter placed for urinary retention. Flomax was increased to 0.4 mg every 12 hours. Patient is having bladder spasms. Will remove Sloan catheter and do voiding trials. 10/3 patient with good urine output. GI prophylaxis with Famotidine Hold Xarelto, continue SCDs. Discharge Planning For EGD in am. Patient with hypoglycemia and poor oral intake. Problem Qualifiers (1) Hyperlipidemia: Qualified Codes: E78.5 - Hyperlipidemia, unspecified (2) HTN (hypertension): Qualified Codes: I10 - Essential (primary) hypertension (3) Diabetes mellitus with hyperglycemia: Qualified Codes: E11.65 - Type 2 diabetes mellitus with hyperglycemia (4) Diarrhea: Qualified Codes: A09 - Infectious gastroenteritis and colitis, unspecified (5) Abdominal pain: Qualified Codes: R10.84 - Generalized abdominal pain (6) Sepsis: Qualified Codes: A41.9 - Sepsis, unspecified organism Abdelrahman Alcantara MD Feb 20, 2017 11:53
[2017-02-20] MEDS ORDERED: ROCURONIUM INJ 50 MG/5 ML VIAL ONE (11:59)
[2017-02-20] MEDS ORDERED: MIDAZOLAM HCL 5 MG/ML VIAL (1 ML) ONE (11:59)
[2017-02-20] MEDS ORDERED: NOREPINEPHRINE-DEXTROSE DRIP 250 ML IV ONE (12:00)
--- NOTE | 2017-02-20 12:01 | RADRPT ---
EXAM DATE/TIME: 02/20/2017 11:36 [facility] COMPARISON: ABDOMEN KUB ONLY, February 18, 2017, 14:35. CT ABDOMEN & PELVIS W/O CONTRAST, February 19, 2017, 19:09. CHEST SINGLE AP, February 15, 2017, 6:10. INDICATIONS : Severe Respiratory Distress. MEDICAL HISTORY : Hypertension. Renal calculi SURGICAL HISTORY : IVC filter placement. ENCOUNTER: Subsequent ACUITY: 2 days PAIN SCORE: 0/10 LOCATION: Bilateral chest FINDINGS: Small bilateral left pleural effusions with associated airspace consolidation, most prominently in th e left lower lobe. The cardiomediastinal contours are stable. Remainder of the exam is unchanged. CONCLUSION: 1. Stable very small right and small left pleural effusions with left lower lobe airspace consolidati on. 2. No significant interval change. Juan Bhakta MD on February 20, 2017 at 11:58 Board Certified Radiologist. This report was verified electronically.
[2017-02-20] MEDS ORDERED: PROPOFOL 1000 MG/100 ML INJ 100 ML ONE (12:04)
--- NOTE | 2017-02-20 12:05 | HHI.GIFU ---
Subjective Remarks Pt being Halicated to [facility] for respiratory distress, suspected aspiration. He is on a 100% NRB mask, with labored breathing. He has not had any n/v per nurse. He still has mild diffuse abdominal tenderness. (Nena Driver) Objective Vitals I&O Vital Signs Date Time Temp Pulse Resp B/P (MAP) Pulse Ox O2 Delivery O2 Flow Rate FiO2 02/20/17 08:00 100.2 122 26 162/95 (117) 92 02/20/17 04:03 96.7 98 19 153/63 (93) 98 02/20/17 01:30 96.9 97 18 168/69 (102) 98 02/19/17 20:54 96.2 99 18 146/82 (103) 99 02/19/17 16:00 100.0 98 20 109/69 (82) 93 02/19/17 12:00 96.9 108 20 108/77 (87) 93 I/O 02/19/17 02/19/17 02/19/17 02/20/17 02/20/17 02/20/17 07:00 15:00 23:00 07:00 15:00 23:00 Intake Total 1007 ml 240 ml 200 ml 100 ml Output Total 500 ml 800 ml 550 ml Balance 507 ml -800 ml 240 ml -350 ml 100 ml Intake Oral 120 ml 240 ml 0 ml IV Total 887 ml 200 ml 100 ml Output Urine Total 500 ml 800 ml 550 ml Bladder Scan Volume Amount 408 ml # Voids 0 # Bowel Movements 2 4 0 2 Laboratory Laboratory Tests Test 02/19/17 12:10 02/19/17 13:20 02/20/17 08:50 Stool C. difficile Toxin (PCR) NEGATIVE Stl C. difficile Toxin Epiderm 027 PRESUMPTIVE NEGATIVE White Blood Count 15.5 18.4 Red Blood Count 4.65 3.88 Hemoglobin 12.4 10.6 Hematocrit 38.5 32.8 Mean Corpuscular Volume 82.8 84.6 Mean Corpuscular Hemoglobin 26.7 27.2 Mean Corpuscular Hemoglobin Concent 32.2 32.2 Red Cell Distribution Width 20.1 19.7 Platelet Count 238 277 Mean Platelet Volume 8.3 8.5 Neutrophils (%) (Auto) 76.3 79.4 Lymphocytes (%) (Auto) 10.8 9.1 Monocytes (%) (Auto) 9.1 9.0 Eosinophils (%) (Auto) 3.2 2.3 Basophils (%) (Auto) 0.6 0.2 Neutrophils # (Auto) 11.9 14.6 Lymphocytes # (Auto) 1.7 1.7 Monocytes # (Auto) 1.4 1.6 Eosinophils # (Auto) 0.5 0.4 Basophils # (Auto) 0.1 0.0 CBC Comment AUTO DIFF AUTO DIFF Differential Total Cells Counted 100 100 Neutrophils % (Manual) 66 60 Band Neutrophils % 3 16 Lymphocytes % 19 9 Monocytes % 2 9 Eosinophils % 2 2 Neutrophils # (Manual) 11.9 14.7 Metamyelocytes 7 Myelocytes 1 4 Differential Comment FINAL DIFF MANUAL FINAL DIFF MANUAL Platelet Estimate NORMAL NORMAL Platelet Morphology Comment ENLARGED NORMAL Hematology Comments Blood Urea Nitrogen 17 18 Creatinine 1.29 1.38 Random Glucose 94 128 Total Protein 4.8 4.7 Albumin 1.4 Calcium Level 6.9 6.8 Phosphorus Level 3.3 Magnesium Level 1.2 Alkaline Phosphatase 124 Aspartate Amino Transf (AST/SGOT) 24 Alanine Aminotransferase (ALT/SGPT) 16 Total Bilirubin 0.3 Sodium Level 139 140 Potassium Level 4.1 4.0 Chloride Level 109 108 Carbon Dioxide Level 20.6 23.0 Anion Gap 9 9 Estimat Glomerular Filtration Rate 56 52 Protein Corrected Calcium 8.1 8.1 Polychromasia 2.3 Date/Time Source Procedure Growth Status 02/15/17 04:45 Blood Peripheral Aerobic Blood Culture - Final NO GROWTH IN 5 DAYS Complete 02/15/17 04:45 Blood Peripheral Anaerobic Blood Culture - Final NO GROWTH IN 5 DAYS Complete 02/01/17 09:55 Cerebral Spinal Fluid Lumbar Puncture Fungal Smear - Final NO FUNGAL ELEMENTS SEEN. Resulted 02/01/17 09:55 Cerebral Spinal Fluid Lumbar Puncture Fungal Culture - Preliminary NO GROWTH IN 2 WEEKS Resulted 02/17/17 05:55 Stool Stool Stool Occult Blood (GREGORY) - Final HEMOCCULT POSITIVE Complete 02/11/17 02:30 Sputum Endotracheal Gram Stain - Final Complete 02/11/17 02:30 Sputum Culture - Final Staphylococcus Aureus Complete 02/11/17 12:20 Urine Catheterized Urine Urine Culture - Final NO GROWTH IN 48 HOURS. Complete 02/11/17 09:10 Abscess Arm Acid Fast Stain - Final NO ACID FAST BACILLI SEEN Resulted 02/11/17 09:10 Abscess Arm Mycobacterial Culture - Preliminary NO GROWTH IN 1 WEEK Resulted Imaging Last Impressions Abdomen/Pelvis CT 02/19/17 0000 Signed Impressions: Service Date/Time: Sunday, February 19, 2017 19:09 - CONCLUSION: 1. Areas of calcification seen in the right renal collecting system, right renal pelvis, and proximal right ureter. These appear to layer and be dependent suggesting likely to represent smaller areas of milk of calcium or small stones. There is mild dilatation of the right renal collecting system and right ureter. A definite obstructing stone at this time is not seen. 2. A small amount of air within the urinary bladder. This should be correlated with any recent catheterization. 3. Mild bilateral pleural effusions with accompanying atelectasis or consolidation at the left base. The consolidation was present previously. 4. Prominent degenerative change in the lumbar spine and at the hip joints bilaterally. Angelo Manzo MD Abdomen X-Ray 02/18/17 0000 Signed Impressions: Service Date/Time: Saturday, February 18, 2017 14:35 - CONCLUSION: Normal examination. Device overlies left upper abdomen. Otherwise unremarkable study. Duy Genao MD Chest X-Ray 02/15/17 0600 Signed Impressions: Service Date/Time: January 06:10 - CONCLUSION: 1. Stable basilar airspace disease and small effusion, left greater than right. Previous left central line has been removed. Trace Holloway MD Upper Extremity Ultrasound 02/10/17 0000 Signed Impressions: Service Date/Time: Friday, February 10, 2017 18:46 - CONCLUSION: Occlusive thrombus in the cephalic and basilic veins. Benjamin Person MD Lung Scan- Nuclear Medicine 02/10/17 0000 Signed Impressions: Service Date/Time: Friday, February 10, 2017 22:17 - CONCLUSION: Low probability pulmonary embolism. Candido Patton MD Head CT 02/10/17 0000 Signed Impressions: Service Date/Time: Friday, February 10, 2017 23:51 - CONCLUSION: Negative noncontrast CT brain. Candido Patton MD Chest CT 02/10/17 0000 Signed Impressions: Service Date/Time: Friday, February 10, 2017 23:56 - CONCLUSION: Left lower lobe collapse with consolidation. Patchy infiltrates the medial right lower lung. Candido Patton MD Wrist X-Ray 02/06/17 0000 Signed Impressions: Service Date/Time: Monday, February 06, 2017 12:50 - CONCLUSION: Minimally displaced distal radius and ulnar fractures. Armando Dodd MD Lumbar Puncture Fluoroscopy 02/01/17 Signed Impressions: Service Date/Time: January 09:35 - CONCLUSION: Uncomplicated fluoroscopically guided lumbar puncture. CSF was clear. Nabeel Peralta MD Head Magnetic Resonance Angiography 01/27/17 Signed Impressions: Service Date/Time: Friday, January 27, 2017 10:33 - CONCLUSION: No intracranial vascular abnormality is identified. There is no aneurysm visualized. Angelo Allen MD IVC Filter Placement X-Ray 01/25/17 Signed Impressions: Service Date/Time: January 10:29 - CONCLUSION: Uncomplicated inferior vena cava filter placement as above. Yung Fowler MD Thoracic Spine MRI 01/24/17 Signed Impressions: Service Date/Time: Tuesday, January 24, 2017 22:29 - CONCLUSION: 1. Mild degenerative spondylosis most prominently at T11-L1 with slight effacement of the anterior thecal sac and left lateral recess. No significant neural foraminal stenosis. 2. No acute fracture. Juan Bhakta MD Renal Ultrasound 01/23/17 Signed Impressions: Service Date/Time: Monday, January 23, 2017 08:53 - CONCLUSION: 1. Evidence of chronic parenchymal disease of both kidneys. No obstructive uropathy or other acute abnormality demonstrated. 2. Trace ascites, nonspecific. Angelo Garrido MD Lumbar Spine MRI 01/23/17 Signed Impressions: Service Date/Time: Monday, January 23, 2017 17:01 - CONCLUSION: 1. At L4-5 is a broad-based disc protrusion with severe central canal and lateral recess stenosis and flattening of the exiting right L4 nerve root. 2. L5-S1 there is a disc protrusion and moderate stenosis with flattening of the exiting L5 nerve roots bilaterally. 3. At L3-4 there is a moderate to severe central stenosis and lateral recess stenosis with mild foraminal stenosis. 4. No acute fracture or spondylolisthesis. Trace Holloway MD Lower Extremity Ultrasound 01/23/17 Signed Impressions: Service Date/Time: Monday, January 23, 2017 09:53 - CONCLUSION: Bilateral focal lower extremity DVT involving the posterior tibial veins. Angelo Garrido MD Cervical Spine MRI 01/23/17 Signed Impressions: Service Date/Time: Monday, January 23, 2017 17:01 - CONCLUSION: 1. Multilevel cervical spine degenerative changes as above. 2. Mild degrees of spinal stenosis at C3/C4-C6/C7. No cord compression or cord signal abnormality. 3. Age indeterminate left paracentral/foraminal disc protrusion at C6/C7. 4. Multilevel foraminal stenosis, most severe on the left at C6/C7. Please see individual levels above. 5. No fracture or subluxation of the cervical spine. Angelo Garrido MD Brain MRI 01/23/17 Signed Impressions: Service Date/Time: Monday, January 23, 2017 17:01 - CONCLUSION: 1. No acute stroke or other acute intracranial abnormality demonstrated. 2. Moderate severity chronic white matter changes, nonspecific but most likely related to chronic small vessel disease. 3. Few scattered tiny lacunar infarcts of the brainstem. 4. Given the findings are not entirely specific, clinical evaluation for possible multiple sclerosis recommended. Angelo Garrido MD Knee X-Ray 01/22/[id number] Signed Impressions: Service Date/Time: Sunday, January 22, 2017 21:17 - CONCLUSION: 1. Evidence of moderate to large joint effusion. 2. No acute fracture or malalignment. 3. Mild 3 compartment osteoarthritic change. Benjamin Person MD Hip and Pelvis X-Ray 01/22/[id number] Signed Impressions: Service Date/Time: Sunday, January 22, 2017 21:10 - CONCLUSION: 1. Mild to moderate degenerative change of both hips with no acute fracture or malalignment. There is flattening and remodeling of the right humeral head. Benjamin Person MD Physical Exam HEENT: Normocephalic; atraumatic; no jaundice. CHEST: Resp labored on 100% NRB mask. Course breath sounds, more so on right CARDIAC: Regular, tachycardic, 118 ABDOMEN: Soft, nondistended, mild diffuse abdominal tenderness, no hepatosplenomegaly; bowel sounds are present in all four quadrants. EXTREMITIES: Generalized edema. Edema LUE, wound vac FINISHING SUPERVISOR: Lethargic, oriented times three. (Nena Driver COVER CRE[employer]ER) Assessment and Plan Plan ASSESSMENT: - Anemia, Hemoccult positive stools. Never had EGD/Colonoscopy. Has bilateral DVTs, requiring anticoagulation, on Xarelto- now on lovenox was held at [facility] for procedure, but now that procedure is on hold, will resume lovenox. - Abdominal pain. C/O worsening abdominal pain and is moaning in bed. However , when areas of abdomen palpated, he denies tenderness. CT abdomen and pelvis without iv contrast (02/19/17)---> areas of calcification seen in the right renal collecting system, right renal pelvis, adn proximal ureter. these appear to layer and be dependent suggesting likely to represent smaller areas of milk of calcium or small stones. There is mild dilatation of th eright renal collecting system and right ureter. A definite obstructing stone at this time is not seen. A small amount of air within hte urinary bladder. This should be correlated with any recent catheterization. Mild bilateral pleural effusions with accompanying atelectasis or consolidation at the left base. the consolidation was present previously. Prominent degenerative change in the lumbar spine and at the hip joints bilaterally. Sloan was removed yesterday, as they suspected that some of his abdominal pain was related to bladder spasms. Slightly improved today, but still with diffuse tenderness. He was scheduled for EGD, but this was cancelled secondary to respiratory distress. - Nausea, Inability to tolerate po. KUB (02/18/17)---> Normal examination. Device overlies left abdomen. Otherwise unremarkable study. Not able to take po. CT as above. Nurse denies any nv - Diarrhea. On abx. Plan was for EGD/Colon tomorrow, but I don't think he will be able to tolerate the bowel prep. He is still having diarrhea. CDiff negative. - Respiratory Insufficiency/Hypoxia. Pt on 100% NRB mask. Being tx to [facility] as Hal[facility] - DVT LE, bilateral. Xarelto on hold, lovenox was on hold for procedure, but given the fact that this is now on hold, we will resume. - Transverse myelitis, per attending. Oxacillin, per ID - LUE Abscess. S/P I&D with excision of left cephalic vein segment. Wound vac. - BREEZY, worsening. Creat 2.21. Per renal. - HTN, DM, per attending. PLAN: - Hold on egd - Resume Lovenox, as endoscopic procedures are now on hold - Monitor HH - Transfuse as necessary - Supportive care - Pt being tx to the unit for respiratory distress. - Further recommendations to follow based on clinical status - Patient seen and examined by Dr. Shepard and myself and this note is written on her behalf. (Nena Driver) Physician Comments seen, examined agree with above procedure cancelled for today we will reevaluate in [place] urology consult-kidney stones (Jerica Shepard MD) Nena Driver Feb 20, 2017 12:05 Jerica Shepard MD Feb 20, 2017 15:37
[2017-02-20 12:26] LABS: BLOOD GAS VENOUS BASE EXCESS -2.5 mmol/L (-2-2); BLOOD GAS VENOUS HCO3 22 mmol/L (22-26); BLOOD GAS VENOUS O2 CONTENT 11.2 Vol % (9.0-17.0); BLOOD GAS VENOUS O2 HGB SAT 78 % (70-76); BLOOD GAS VENOUS PCO2 42 mmHg (44-48); BLOOD GAS VENOUS PO2 50 mmHg (35-40); BLOOD GAS VENOUS pH 7.35 (7.360-7.400); CRITICAL VALUE NO; OXYGEN DEVICE VENT; TEMP CORR TO 98.6
[2017-02-20 12:27] LABS: DRAW SITE LINE; FIO2 100 %; STAT YES; VENT SETTINGS PRVC/14/550/10PEEP
[2017-02-20] MEDS ORDERED: SODIUM PHOSPHATE INJ 30 MMOL in SODIUM CHLOR 0.9% 250 ML INJ 240 ML IV PRN (12:45)
[2017-02-20] MEDS ORDERED: POTASSIUM PHOSPHATE INJ 30 MMOL in SODIUM CHLOR 0.9% 250 ML INJ 250 ML IV PRN (12:45)
[2017-02-20] MEDS ORDERED: HALOPERIDOL LACTATE 5 MG/ML AMP IV PRN (12:45)
[2017-02-20] MEDS ORDERED: DEXTROSE 50% IN WATER 50 ML VIAL(D50) IV PUSH PRN (12:45)
[2017-02-20] MEDS ORDERED: MAGNESIUM SULFATE INJ 4 GM in SODIUM CHLORIDE 0.9% INJ 92 ML IV PRN (12:45)
[2017-02-20] MEDS ORDERED: POTASSIUM PHOSPHATE MONOBASIC 500 MG TAB PO PRN (12:45)
[2017-02-20] MEDS ORDERED: LACTATED RINGER'S 1000 ML INJ 1,000 ML IV ONE (12:45)
[2017-02-20] MEDS ORDERED: TERBUTALINE INJ 1 MG/ML AMP SQ PRN (12:45)
[2017-02-20] MEDS ORDERED: MAGNESIUM SULFATE INJ 2 GM in SODIUM CHLORIDE 0.9% INJ 96 ML IV PRN (12:45)
[2017-02-20] MEDS ORDERED: POTASSIUM PHOSPHATE MONOBASIC 500 MG TAB PO/TUBE PRN (12:45)
[2017-02-20] MEDS ORDERED: fentaNYL DRIP 250 ML IV SCH (12:45)
[2017-02-20] MEDS ORDERED: MAGNESIUM OXIDE 400 MG TAB PO PRN (12:45)
[2017-02-20] MEDS ORDERED: POTASSIUM CHLOR 20 MEQ PREMIX 100 ML IV PRN ×2 (12:45)
--- NOTE | 2017-02-20 12:45 | PD.CONS ---
[facility] Service Critical Care Medicine Consult Requested By Dr. Friend Reason for Consult Acute hypoxemia Primary Care Physician Unknown History of Present Illness This is a 62-year-old male who was originally admitted for lower extremity weakness and found to have what was thought to be possible transverse myelitis. His hospital course his included a healthcare associated pneumonia, septic, phlebitis, DVT. He was most recently in the hospital floor where he had significant nausea and vomiting and diarrhea. His C. difficile test was recently negative. However, he has experienced worsening acute on chronic renal failure, hypotension, tachycardia, and severe hypoxemia. He did have a bout of vomiting earlier today, and his hospitalist attending suspects that he may have aspirated. He arrives by rapid response to the ICU with a nonrebreather in place in severe respiratory distress with SPO2 of 85%. I emergently intubate the patient, see separate procedure note for details. At this point the patient was hypotensive and tachycardic. He does have a history of an EF of 20%, however clinically he appears in florid septic shock. I placed central line and arterial line started vasopressors and gentle IV fluid resuscitation with 1 L of LR. Patient today was empirically broadened to vancomycin and Zosyn from his oxacillin which was initially treating MSSA bacteremia. He is recultured. Critical-care medicine is consulted to evaluate and manage his worsening multiorgan system failure and decompensated septic shock Review of Systems ROS Limitations: Clinical Condition, Altered Mental Status Past Family Social History Allergies: Coded Allergies: levofloxacin (Verified Allergy, Severe, 01/22/17) Past Medical History Hypertension Hyperlipidemia Diabetes mellitus Gout Uric acid kidney stones Chronic kidney disease, unknown stage Past Surgical History Rhinoplasty Kidney stone removal with cystoscopy and ureteral stent Reported Medications Atorvastatin 10 mEq by mouth daily at bedtime Atenolol 25 mg by mouth daily Norvasc 5 mg by mouth daily Hydrocodone 7.5/325 one by mouth every 4 hours when necessary pain Glipizide 5 mill grams by mouth twice a day Active Ordered Medications See MAR Family History Unable to obtain from patient due to clinical condition. Reviewed EMR which indicates that his mother had diabetes, asthma, hypertension , heart disease. Father is reportedly alive without any significant medical history Social History Unobtainable secondary to patient's clinical condition Physical Exam Vital Signs Vital Signs Date Time Temp Pulse Resp B/P (MAP) Pulse Ox O2 Delivery O2 Flow Rate FiO2 02/20/17 12:17 100 100 10/3/17 08:00 100.2 122 26 162/95 (117) 92 02/20/17 04:03 96.7 98 19 153/63 (93) 98 02/20/17 01:30 96.9 97 18 168/69 (102) 98 02/19/17 20:54 96.2 99 18 146/82 (103) 99 02/19/17 16:00 100.0 98 20 109/69 (82) 93 Physical Exam GENERAL: Middle-aged male, lying in bed, severe respiratory distress HEENT: Normocephalic. Atraumatic. Pupils equal, round, reactive, conjugate. Mucous membranes are dry NECK: Trachea is midline. There is no JVD. CHEST: Tachypneic. Labored. On nonrebreather. SPO2 85% CARDIOVASCULAR: Tachycardic rate, regular rhythm. ABDOMEN: Soft, nontender, nondistended. No guarding. MUSCULOSKELETAL: Pulses 2+. No peripheral edema. NEUROLOGICAL: RASS +1. Labored in distress. Nonfocal Laboratory Laboratory Tests Test 02/19/17 13:20 02/20/17 08:50 02/20/17 12:10 02/20/17 12:20 White Blood Count 15.5 18.4 Red Blood Count 4.65 3.88 Hemoglobin 12.4 10.6 Hematocrit 38.5 32.8 Mean Corpuscular Volume 82.8 84.6 Mean Corpuscular Hemoglobin 26.7 27.2 Mean Corpuscular Hemoglobin Concent 32.2 32.2 Red Cell Distribution Width 20.1 19.7 Platelet Count 238 277 Mean Platelet Volume 8.3 8.5 Neutrophils (%) (Auto) 76.3 79.4 Lymphocytes (%) (Auto) 10.8 9.1 Monocytes (%) (Auto) 9.1 9.0 Eosinophils (%) (Auto) 3.2 2.3 Basophils (%) (Auto) 0.6 0.2 Neutrophils # (Auto) 11.9 14.6 Lymphocytes # (Auto) 1.7 1.7 Monocytes # (Auto) 1.4 1.6 Eosinophils # (Auto) 0.5 0.4 Basophils # (Auto) 0.1 0.0 CBC Comment AUTO DIFF AUTO DIFF Differential Total Cells Counted 100 100 Neutrophils % (Manual) 66 60 Band Neutrophils % 3 16 Lymphocytes % 19 9 Monocytes % 2 9 Eosinophils % 2 2 Neutrophils # (Manual) 11.9 14.7 Metamyelocytes 7 Myelocytes 1 4 Differential Comment FINAL DIFF MANUAL FINAL DIFF MANUAL Platelet Estimate NORMAL NORMAL Platelet Morphology Comment ENLARGED NORMAL Hematology Comments Blood Urea Nitrogen 17 18 Creatinine 1.29 1.38 Random Glucose 94 128 Total Protein 4.8 4.7 Albumin 1.4 Calcium Level 6.9 6.8 Phosphorus Level 3.3 Magnesium Level 1.2 Alkaline Phosphatase 124 Aspartate Amino Transf (AST/SGOT) 24 Alanine Aminotransferase (ALT/SGPT) 16 Total Bilirubin 0.3 Sodium Level 139 140 Potassium Level 4.1 4.0 Chloride Level 109 108 Carbon Dioxide Level 20.6 23.0 Anion Gap 9 9 Estimat Glomerular Filtration Rate 56 52 Protein Corrected Calcium 8.1 8.1 Polychromasia 2.3 Blood Gas Puncture Site LINE RT RADIAL Blood Gas Patient Temperature 98.6 98.6 Venous Blood pH 7.35 Venous Blood Partial Pressure CO2 42 Venous Blood Partial Pressure O2 50 Venous Blood HCO3 22 Venous Blood Oxygen Saturation 78 Venous Blood Oxygen Content 11.2 Venous Blood Base Excess -2.5 Oxygen Delivery Device VENT VENT Blood Gas Ventilator Setting PRVC/14/550/10PEEP PRVC/14/550/10PEEP Blood Gas Inspired Oxygen 100 100 Blood Gas HCO3 22 Blood Gas Base Excess -2.1 Blood Gas Oxygen Saturation 98 Arterial Blood pH 7.37 Arterial Blood Partial Pressure CO2 40 Arterial Blood Partial Pressure O2 316 Arterial Blood Oxygen Content 14.6 Arterial Blood Carboxyhemoglobin 1.2 Arterial Blood Methemoglobin 0.9 Blood Gas Hemoglobin 10.1 Date/Time Source Procedure Growth Status 02/15/17 04:45 Blood Peripheral Aerobic Blood Culture - Final NO GROWTH IN 5 DAYS Complete 02/15/17 04:45 Blood Peripheral Anaerobic Blood Culture - Final NO GROWTH IN 5 DAYS Complete 02/01/17 09:55 Cerebral Spinal Fluid Lumbar Puncture Fungal Smear - Final NO FUNGAL ELEMENTS SEEN. Resulted 02/01/17 09:55 Cerebral Spinal Fluid Lumbar Puncture Fungal Culture - Preliminary NO GROWTH IN 2 WEEKS Resulted 02/17/17 05:55 Stool Stool Stool Occult Blood (GREGORY) - Final HEMOCCULT POSITIVE Complete 02/11/17 02:30 Sputum Endotracheal Gram Stain - Final Complete 02/11/17 02:30 Sputum Culture - Final Staphylococcus Aureus Complete 02/11/17 12:20 Urine Catheterized Urine Urine Culture - Final NO GROWTH IN 48 HOURS. Complete 02/11/17 09:10 Abscess Arm Acid Fast Stain - Final NO ACID FAST BACILLI SEEN Resulted 02/11/17 09:10 Abscess Arm Mycobacterial Culture - Preliminary NO GROWTH IN 1 WEEK Resulted Result Diagram: 02/20/17 0850 02/20/17 0850 Imaging Last Impressions Chest X-Ray 02/20/17 Signed Impressions: Service Date/Time: Monday, February 20, 2017 12:46 - CONCLUSION: 1. ETT approximately 1.7 cm above the roxanna. Left subclavian central line in proximal SVC. 2. No pneumothorax. 3. Stable trace right pleural effusion and small left pleural effusion with left lower lobe consolidation. Juan Bhakta MD Abdomen/Pelvis CT 02/19/17 Signed Impressions: Service Date/Time: Sunday, February 19, 2017 19:09 - CONCLUSION: 1. Areas of calcification seen in the right renal collecting system, right renal pelvis, and proximal right ureter. These appear to layer and be dependent suggesting likely to represent smaller areas of milk of calcium or small stones. There is mild dilatation of the right renal collecting system and right ureter. A definite obstructing stone at this time is not seen. 2. A small amount of air within the urinary bladder. This should be correlated with any recent catheterization. 3. Mild bilateral pleural effusions with accompanying atelectasis or consolidation at the left base. The consolidation was present previously. 4. Prominent degenerative change in the lumbar spine and at the hip joints bilaterally. Angelo Manzo MD Abdomen X-Ray 02/18/17 Signed Impressions: Service Date/Time: Saturday, February 18, 2017 14:35 - CONCLUSION: Normal examination. Device overlies left upper abdomen. Otherwise unremarkable study. Duy Genao MD Upper Extremity Ultrasound 02/10/17 0000 Signed Impressions: Service Date/Time: Friday, February 10, 2017 18:46 - CONCLUSION: Occlusive thrombus in the cephalic and basilic veins. Benjamin Person MD Lung Scan- Nuclear Medicine 02/10/17 Signed Impressions: Service Date/Time: Friday, February 10, 2017 22:17 - CONCLUSION: Low probability pulmonary embolism. Candido Patton MD Head CT 02/10/17 Signed Impressions: Service Date/Time: Friday, February 10, 2017 23:51 - CONCLUSION: Negative noncontrast CT brain. Candido Patton MD Chest CT 02/10/17 Signed Impressions: Service Date/Time: Friday, February 10, 2017 23:56 - CONCLUSION: Left lower lobe collapse with consolidation. Patchy infiltrates the medial right lower lung. Candido Patton MD Wrist X-Ray 02/06/17 Signed Impressions: Service Date/Time: Monday, February 06, 2017 12:50 - CONCLUSION: Minimally displaced distal radius and ulnar fractures. Armando Dodd MD Lumbar Puncture Fluoroscopy 02/01/17 0000 Signed Impressions: Service Date/Time: January 09:35 - CONCLUSION: Uncomplicated fluoroscopically guided lumbar puncture. CSF was clear. Nabeel Peralta MD Head Magnetic Resonance Angiography 01/27/17 Signed Impressions: Service Date/Time: Friday, January 27, 2017 10:33 - CONCLUSION: No intracranial vascular abnormality is identified. There is no aneurysm visualized. Angelo Allen MD IVC Filter Placement X-Ray 01/25/17 Signed Impressions: Service Date/Time: January 10:29 - CONCLUSION: Uncomplicated inferior vena cava filter placement as above. Yung Fowler MD Thoracic Spine MRI 01/24/17 Signed Impressions: Service Date/Time: Tuesday, January 24, 2017 22:29 - CONCLUSION: 1. Mild degenerative spondylosis most prominently at T11-L1 with slight effacement of the anterior thecal sac and left lateral recess. No significant neural foraminal stenosis. 2. No acute fracture. Juan Bhakta MD Renal Ultrasound 01/23/17 Signed Impressions: Service Date/Time: Monday, January 23, 2017 08:53 - CONCLUSION: 1. Evidence of chronic parenchymal disease of both kidneys. No obstructive uropathy or other acute abnormality demonstrated. 2. Trace ascites, nonspecific. Angelo Garrido MD Lumbar Spine MRI 01/23/17 Signed Impressions: Service Date/Time: Monday, January 23, 2017 17:01 - CONCLUSION: 1. At L4-5 is a broad-based disc protrusion with severe central canal and lateral recess stenosis and flattening of the exiting right L4 nerve root. 2. L5-S1 there is a disc protrusion and moderate stenosis with flattening of the exiting L5 nerve roots bilaterally. 3. At L3-4 there is a moderate to severe central stenosis and lateral recess stenosis with mild foraminal stenosis. 4. No acute fracture or spondylolisthesis. Trace Holloway MD Lower Extremity Ultrasound 01/23/17 Signed Impressions: Service Date/Time: Monday, January 23, 2017 09:53 - CONCLUSION: Bilateral focal lower extremity DVT involving the posterior tibial veins. Angelo Garrido MD Cervical Spine MRI 01/23/17 Signed Impressions: Service Date/Time: Monday, January 23, 2017 17:01 - CONCLUSION: 1. Multilevel cervical spine degenerative changes as above. 2. Mild degrees of spinal stenosis at C3/C4-C6/C7. No cord compression or cord signal abnormality. 3. Age indeterminate left paracentral/foraminal disc protrusion at C6/C7. 4. Multilevel foraminal stenosis, most severe on the left at C6/C7. Please see individual levels above. 5. No fracture or subluxation of the cervical spine. Angelo Garrido MD Brain MRI 01/23/17 Signed Impressions: Service Date/Time: Monday, January 23, 2017 17:01 - CONCLUSION: 1. No acute stroke or other acute intracranial abnormality demonstrated. 2. Moderate severity chronic white matter changes, nonspecific but most likely related to chronic small vessel disease. 3. Few scattered tiny lacunar infarcts of the brainstem. 4. Given the findings are not entirely specific, clinical evaluation for possible multiple sclerosis recommended. Angelo Garrido MD Knee X-Ray 01/22/172053 Signed Impressions: Service Date/Time: Sunday, January 22, 2017 21:17 - CONCLUSION: 1. Evidence of moderate to large joint effusion. 2. No acute fracture or malalignment. 3. Mild 3 compartment osteoarthritic change. Benjamin Person MD Hip and Pelvis X-Ray 01/22/172053 Signed Impressions: Service Date/Time: Sunday, January 22, 2017 21:10 - CONCLUSION: 1. Mild to moderate degenerative change of both hips with no acute fracture or malalignment. There is flattening and remodeling of the right humeral head. Benjamin Person MD Assessment and Plan Problem List: (1) Septic shock ICD Code: A41.9 - Sepsis, unspecified organism; R65.21 - Severe sepsis with septic shock Status: Acute (2) Acute respiratory failure ICD Code: J96.00 - Acute respiratory failure, unspecified whether with hypoxia or hypercapnia Status: Acute (3) Thrombophlebitis arm ICD Code: I80.8 - Phlebitis and thrombophlebitis of other sites (4) Aspiration pneumonia ICD Code: J69.0 - Pneumonitis due to inhalation of food and vomit Status: Acute (5) Atelectasis of left lung ICD Code: J98.11 - Atelectasis Status: Acute (6) Quadriparesis ICD Code: G82.50 - Quadriplegia, unspecified Status: Acute (7) DVT (deep venous thrombosis) ICD Code: I82.409 - Acute embolism and thrombosis of unspecified deep veins of unspecified lower extremity (8) Altered mental status ICD Code: R41.82 - Altered mental status, unspecified Status: Acute (9) CKD (chronic kidney disease) stage 3, GFR 30-59 ml/min ICD Code: N18.3 - Chronic kidney disease, stage 3 (moderate) Status: Chronic (10) Acute renal failure ICD Code: N17.9 - Acute kidney failure, unspecified Status: Acute (11) Diabetes mellitus ICD Code: E11.9 - Type 2 diabetes mellitus without complications Status: Chronic (12) Distal end of ulna fracture, closed ICD Code: S52.609A - Unspecified fracture of lower end of unspecified ulna, initial encounter for closed fracture Status: Acute (13) Gout ICD Code: M10.9 - Gout, unspecified Status: Chronic Assessment and Plan Assessment: 62yM with now acute and worsening septic shock and associated multi organ system failure including acute hypoxic respiratory failure, acute kidney injury. Likely secondary to healthcare associated pneumonia. Recent diarrhea, but C. Diff negative. Appreciate ID involvement. repeat cultures, continue abx. Given acute hypoxemia, HCAP/Hospital associated aspiration pneumonia is most likely source. Remains critically ill on vasopressors in shock and worsening respiratory function. NEURO: Acute metabolic encephalopathy Quadriparesis secondary to suspected transverse myelitis Recurrent falls Suspected transverse myelitis. Received Solu-Medrol 250 mg IV every 6 hours 01/27- 02/02, currently on stress dose steroids, dose reduced to 50 q8 LP 01/26 and 02/01. CSF culture negative 01/26, 02/01 Oligoclonal bands negative. CSF/serum IgG index is not elevated. VDRL nonreactive. Cryptococcal antigen negative. Brain MRI 01/23 no acute stroke. Few scattered lacunar infarcts of the brainstem. Moderate chronic white matter changes. MRI cervical/thoracic spine- mild spinal stenosis 3C3/C4 to C6/C7. No cord compression. RPR negative Neurology has been following, Dr. Crenshaw. Repeat CT brain 02/10 - negative Continue PT/OT prop/fent for goal RASS -2. RESP: Acute hypoxemic respiratory failure Healthcare associated pneumonia/Aspiration Pneumonia Intubated emergently 02/10. Extubated 02/13/17 reintubated 02/20 for acute hypoxemia. vent bundle, hob at 30 degrees, nebs send sputum culture VQ scan 02/10 low probability for PE. CT chest02/10 - left lower lobe collapse and consolidation. Right lower lobe infiltrate. CV: Septic shock Cardiomyopathy with ejection fraction 20-25% Hyperlipidemia History of hypertension 1L LR bolus trend lactates norepinpehrine and vasopressin for goal map > 65 mmhg. Hold metoprolol and norvasc. continue statin. GI: Severe protein energy malnutrition Nausea/vomiting Diarrhea CT abdomen and pelvis 02/10 atrophic left kidney. Bilateral inguinal hernias fat- containing. Nonobstructing 12 mm right kidney stone repeat CT abd/pelvis did not show evidence of obstruction. patient clinically has been having diarrhea (c. diff negative 02/19). also with nausea/vomiting of unclear etiology. will keep NPO for now. FEN/RENAL: Acute kidney injury Chronic kidney disease stage 3-4 History of uric acid kidney stones with prior stent Continue Sloan due to renal failure. Monitor intake and output q1hr. Monitor electrolytes. RIOS/SPEP negative. Nephrology following. ID: Septic shock Abscess and Suppurative thrombophlebitis left upper extremity MSSA bacteremia Acute aspiration pneumonia/HCAP d/c oxacillin broaden to vanc/zosyn ID on board f/u repeat blood, sputum, urine cultures septic shock most likely secondary to pneumonia HEME: DVT, bilateral posterior tibial vein IVC filter Septic thrombophlebitis with occlusive thrombus mid cephalic and basilic vein Ultrasound 01/23/17 - Bilateral lower extremity with occlusive posterior tibial vein DVTs. Heparin was initially started for DVT but was placed on hold due to LP with suspected traumatic tap. now back on full anticoagulation. IV Heparin 02/11/17. IVC filter was placed 01/25/17. He has not been on a DVT prophylaxis. Last LP was 02/01. Ultrasound LUE 02/10 occlusive thrombus mid cephalic vein, basilic vein. ENDO: Diabetes mellitus Hypoglycemia History of prior adrenal insufficiency with shock start on D10w at 42cc/hr for hypoglycemia continue NPO for nausea/vomiting will hold off on empiric steroids, but has a history of adrenal insufficiency with prior shock episode. q4h accuchecks. MSK: Right distal ulna fracture. Dr. Nathan with orthopedics has evaluated and recommended nonoperative management. Right wrist splint in place. Gout PROPH: Famotidine for stress ulcer prophylaxis. Has IVC filter. therapeutic lovenox. ACCESS: place art line, central line. Dispo: admit to ICU. very critically ill. This patient remains critically ill with one or more organ systems which are or may become a threat to life. I have spent in excess of 65 minutes discontinuously in the care and management of this patient. This time is exclusive of procedures, and includes, but is not limited to, evaluation of the patient, review of the medical record, discussions with family, consultants, nursing staff, or respiratory therapy, and documentation in the medical record. Problem Qualifiers (1) Aspiration pneumonia: (2) DVT (deep venous thrombosis): Qualified Codes: I82.443 - Acute embolism and thrombosis of tibial vein, bilateral (3) Acute renal failure: Qualified Codes: N17.9 - Acute kidney failure, unspecified (4) Diabetes mellitus: (5) Gout: Anthony Rivas MD Feb 20, 2017 12:45
[2017-02-20 12:48] LABS: AUTOMATED NEUTROPHIL # 19.1 TH/MM3 (1.8-7.7); BASOPHIL # 0.1 TH/MM3 (0-0.2); BASOPHIL % 0.5 % (0.0-2.0); EOSINOPHIL # 0.4 TH/MM3 (0-0.4); EOSINOPHIL % 1.9 % (0.0-4.0); HEMATOCRIT 32.3 % (39.0-51.0); LYMPH % 6.5 % (9.0-44.0); LYMPHOCYTE # 1.5 TH/MM3 (1.0-4.8); MEAN CELL VOLUME 83.6 FL (80.0-100.0); MEAN CORPUSCULAR HEMOGLOBIN 26.6 PG (27.0-34.0); MEAN CORPUSCULAR HGB CONC 31.9 % (32.0-36.0); MONO % 8.7 % (0.0-8.0); NEUT % 82.4 % (16.0-70.0); PLATELET COUNT 299 TH/MM3 (150-450); RED BLOOD COUNT 3.87 MIL/MM3 (4.50-5.90); RED CELL DISTRIBUTION WIDTH 19.9 % (11.6-17.2); WHITE BLOOD COUNT 23.2 TH/MM3 (4.0-11.0)
[2017-02-20 12:53] LABS: HEMO FLAGS AUTO DIFF
[2017-02-20] MEDS ORDERED: PIPERACIL-TAZO 4.5 GM PREMIX 100 ML IV SCH (13:00)
[2017-02-20] MEDS ORDERED: CALCIUM CHLORIDE INJ 2 GM in SODIUM CHLORIDE 0.9% INJ 100 ML IV ONE (13:00)
--- NOTE | 2017-02-20 13:08 | HHI.NPPN ---
Subjective History of Present Illness 61-year-old with history of urinary stone Additional Remarks pt intubated has been septic Review of Systems General Constitutional: Fatigue Objective Data Data 02/20/17 02/21/17 19:00 07:00 Intake Total 100 ml Balance 100 ml IV Total 100 ml Vital Signs Date Time Temp Pulse Resp B/P (MAP) Pulse Ox O2 Delivery O2 Flow Rate FiO2 02/20/17 12:17 100 100 02/20/17 08:00 100.2 122 26 162/95 (117) 92 02/20/17 04:03 96.7 98 19 153/63 (93) 98 02/20/17 01:30 96.9 97 18 168/69 (102) 98 02/19/17 20:54 96.2 99 18 146/82 (103) 99 02/19/17 16:00 100.0 98 20 109/69 (82) 93 -: 02/20/17 1220 02/20/17 0850 Microbiology 02/20/17 Aerobic Blood Culture, Received Pending 02/20/17 Anaerobic Blood Culture, Received Pending 02/20/17 Aerobic Blood Culture, Received Pending 02/20/17 Anaerobic Blood Culture, Received Pending Physical Exam General Appearance: Pale Neck Neck Exam: Neck Supple Pulmonary Resp Exam: Crackles, Rhonchi, Decreased Bases Cardiology CV Exam: Regular, Normal Sinus Rhythm Gastrointestinal/Abdomen GI Exam: Soft, Non-Tender, Bowel Sounds Present Extremeties Extremities Exam: Moderate Edema Neurologic Neuro Exam: Sedated Assessment/Plan Problem List: (1) Acute renal failure ICD Codes: N17.9 - Acute kidney failure, unspecified Status: Acute Plan: Patient developed Hypotension,sepsis staph aureus respiratory failure and increase WBC. Had aspiration pneumonia, developed sepsis with ARF again creatinine declined slightly post hydration has another event ? Aspiration Septic respiratory distress dropped BP on Levaphed UOP low Cr increased to 1.3 d/w Dr. Rivas planning to give fluids for now stabilize BP and I will follow renal functions (2) CKD (chronic kidney disease) stage 3, GFR 30-59 ml/min ICD Codes: N18.3 - Chronic kidney disease, stage 3 (moderate) Status: Chronic Plan: Ultrasound revealed chronic kidney disease there is no kidney stones (3) Diabetes ICD Codes: E11.9 - Type 2 diabetes mellitus without complications Plan: Continue to monitor (4) Distal end of ulna fracture, closed ICD Codes: S52.609A - Unspecified fracture of lower end of unspecified ulna, initial encounter for closed fracture Status: Acute Plan: Orthopedic is following Problem Qualifiers (1) Acute renal failure: Qualified Codes: N17.9 - Acute kidney failure, unspecified Laura Liao MD Feb 20, 2017 13:08
[2017-02-20 13:09] LABS: BICARBONATE 23.8 MEQ/L (21.0-32.0); CALCIUM-PROTEIN CORRECTED 8.4 MG/DL (8.5-10.1); POTASSIUM 3.7 MEQ/L (3.5-5.1); TOTAL BILIRUBIN ADULT 0.3 MG/DL (0.2-1.0)
--- NOTE | 2017-02-20 13:16 | RADRPT ---
EXAM DATE/TIME: 02/20/2017 12:46 [facility] COMPARISON: CHEST SINGLE AP, February 20, 2017, 11:36. INDICATIONS : Rule out atelectasis. MEDICAL HISTORY : Gastroesophageal reflux disease. Arthritis. Renal calculi. Cardiovascula r SURGICAL HISTORY : Nasal surgery. Stents in kidneys ENCOUNTER: Subsequent ACUITY: 1 month PAIN SCORE: Non-responsive. LOCATION: Bilateral chest FINDINGS: Interval ETT placement with tip approximately 1.7 cm above the roxanna. Left subclavian central line w ith tip in the proximal SVC. Redemonstration of trace right and small left pleural effusions with air space consolidation at the left lung base. Cardiomediastinal are stable. Remainder of the exam is unc hanged. CONCLUSION: 1. ETT approximately 1.7 cm above the roxanna. Left subclavian central line in proximal SVC. 2. No pneumothorax. 3. Stable trace right pleural effusion and small left pleural effusion with left lower lobe consolida tion. Juan Bhakta MD on February 20, 2017 at 13:12 Board Certified Radiologist. This report was verified electronically.
[2017-02-20 13:34] LABS: BANDS 6 % (0-6); METAMYELOCYTES 4 % (0-1); MYELOCYTES 3 % (0-0); NEUTROPHIL # MANUAL DIFF 20.6 TH/MM3 (1.8-7.7); POLYS (SEG NEUTROPHILS) 76 % (16-70); WBC DIFF SAMPLE 100
[2017-02-20 13:35] LABS: APTT (PATIENT) 44.1 SEC (24.3-30.1); INTERNATIONAL NORMALIZED RATIO 1.3 RATIO; PROTHROMBIN TIME - PATIENT 14.4 SEC (9.8-11.6)
[2017-02-20 13:36] LABS: SCAN/DIFF FINAL DIFF MANUAL
[2017-02-20 13:41] LABS: BACTERIA, URINE OCC /hpf; BLOOD, URINE MOD (NEG); COMMENT (UR) CULTURE INDICATED; CULTURE IF INDICATED CULTURE INDICATED; GLUCOSE,URINE NEG (NEG); KETONE, URINE NEG (NEG); NITRITE,URINE NEG (NEG); PH, URINE 5.5 (5.0-8.5); URINE COLOR YELLOW (YELLW/STRAW)
--- NOTE | 2017-02-20 14:48 | HHI.IDPN ---
Subjective Subjective Remarks Patient is a 62-year-old male, admitted to the hospital for evaluation of pain in his right wrist. He gave a history of falling about a week ago and apparently had immediate pain in the right wrist. He did not seek any medical attention initially because reportedly he was very busy. He eventually presented, and he was found to have a distal ulnar fracture on plain films. He also had some redness and swelling. Orthopedics saw the patient, and was being treated conservatively with the splint. During this hospitalization also he started complaining of generalized weakness but more so in his lower extremity than his upper extremity. He had swelling in both lower extremity which revealed evidence of DVT in the posterior tibial veins. Neurology had seen the patient and he underwent lumbar puncture which apparently was traumatic. Patient was therefore not given anticoagulation because of the traumatic LP, and he underwent placement of an IVC filter on January 25. Patient had another lumbar puncture on February 01. He was felt to have transverse myelitis, and he was given high-dose IV Solu-Medrol from January 27 to February 02. There was apparently some improvement in his weakness. The imaging studies done for his weakness showed some spinal stenosis, and neurosurgery was consult that and recommended that there was no surgical intervention to be done. Patient has been stabilizing, but last night apparently deteriorated, and he ended up getting intubated, and had significant hypotension requiring pressors. There was also an ultrasound done of his left upper extremity which showed DVT, and there was evidence of superior 2 thrombophlebitis. Vascular surgery was consult to it and he had IND on his left upper extremity. Patient has had some fevers since yesterday. 2 blood cultures were done yesterday and they're now reported as growing gram-positive cocci in [place] in clusters. He is currently sedated and intubated. He is on Levophed and vasopressin. A central line was placed as well as a femoral a line. He apparently had an IV in his left upper extremity and that was removed yesterday. Patient also has history of chronic kidney disease, and nephrology evaluated the patient. He was just being monitored for his renal insufficiency. Infectious disease consultation has been requested to evaluate the patient. Notes reviewed Transferred to [facility] - ?aspirated, not intubated On pressors Sedated C diff negative Temps low grade On Abx for MSSA bacteremia due to suppurative thrombophlebitis RUE, S/P OR last (+) BC 02/12 Antibiotics Oxacillin Zosyn vancomycin Lines LSC TLC Past Medical History Reviewed Allergies: Coded Allergies: levofloxacin (Verified Allergy, Severe, 01/22/17) Objective . Vital Signs Date Time Temp Pulse Resp B/P (MAP) Pulse Ox O2 Delivery O2 Flow Rate FiO2 02/20/17 12:17 100 100 02/20/17 08:00 100.2 122 26 162/95 (117) 92 02/20/17 04:03 96.7 98 19 153/63 (93) 98 02/20/17 01:30 96.9 97 18 168/69 (102) 98 02/19/17 20:54 96.2 99 18 146/82 (103) 99 02/19/17 16:00 100.0 98 20 109/69 (82) 93 02/20/17 02/20/17 02/21/17 15:00 23:00 07:00 Intake Total 100 ml Balance 100 ml IV Total 100 ml . Laboratory Tests Test 02/19/17 13:20 02/20/17 08:50 02/20/17 12:20 White Blood Count 15.5 TH/MM3 18.4 TH/MM3 23.2 TH/MM3 Red Blood Count 4.65 MIL/MM3 3.88 MIL/MM3 3.87 MIL/MM3 Hemoglobin 12.4 GM/DL 10.6 GM/DL 10.3 GM/DL Hematocrit 38.5 % 32.8 % 32.3 % Mean Corpuscular Volume 82.8 FL 84.6 FL 83.6 FL Mean Corpuscular Hemoglobin 26.7 PG 27.2 PG 26.6 PG Mean Corpuscular Hemoglobin Concent 32.2 % 32.2 % 31.9 % Red Cell Distribution Width 20.1 % 19.7 % 19.9 % Platelet Count 238 TH/MM3 277 TH/MM3 299 TH/MM3 Mean Platelet Volume 8.3 FL 8.5 FL 8.4 FL Neutrophils (%) (Auto) 76.3 % 79.4 % 82.4 % Lymphocytes (%) (Auto) 10.8 % 9.1 % 6.5 % Monocytes (%) (Auto) 9.1 % 9.0 % 8.7 % Eosinophils (%) (Auto) 3.2 % 2.3 % 1.9 % Basophils (%) (Auto) 0.6 % 0.2 % 0.5 % Neutrophils # (Auto) 11.9 TH/MM3 14.6 TH/MM3 19.1 TH/MM3 Lymphocytes # (Auto) 1.7 TH/MM3 1.7 TH/MM3 1.5 TH/MM3 Monocytes # (Auto) 1.4 TH/MM3 1.6 TH/MM3 2.0 TH/MM3 Eosinophils # (Auto) 0.5 TH/MM3 0.4 TH/MM3 0.4 TH/MM3 Basophils # (Auto) 0.1 TH/MM3 0.0 TH/MM3 0.1 TH/MM3 CBC Comment AUTO DIFF AUTO DIFF AUTO DIFF Differential Total Cells Counted 100 100 100 Neutrophils % (Manual) 66 % 60 % 76 % Band Neutrophils % 3 % 16 % 6 % Lymphocytes % 19 % 9 % 5 % Monocytes % 2 % 9 % 6 % Eosinophils % 2 % 2 % Neutrophils # (Manual) 11.9 TH/MM3 14.7 TH/MM3 20.6 TH/MM3 Metamyelocytes 7 % 4 % Myelocytes 1 % 4 % 3 % Differential Comment FINAL DIFF MANUAL FINAL DIFF MANUAL FINAL DIFF MANUAL Platelet Estimate NORMAL NORMAL Platelet Morphology Comment ENLARGED NORMAL Hematology Comments Polychromasia 2.3 % Laboratory Tests Test 02/19/17 13:20 02/20/17 08:50 02/20/17 12:20 Blood Urea Nitrogen 17 MG/DL 18 MG/DL 19 MG/DL Creatinine 1.29 MG/DL 1.38 MG/DL 1.44 MG/DL Random Glucose 94 MG/DL 128 MG/DL 122 MG/DL Total Protein 4.8 GM/DL 4.7 GM/DL 4.6 GM/DL Albumin 1.4 GM/DL 1.4 GM/DL Calcium Level 6.9 MG/DL 6.8 MG/DL 7.0 MG/DL Phosphorus Level 3.3 MG/DL Magnesium Level 1.2 MG/DL Alkaline Phosphatase 124 U/L 130 U/L Aspartate Amino Transf (AST/SGOT) 24 U/L 18 U/L Alanine Aminotransferase (ALT/SGPT) 16 U/L 15 U/L Total Bilirubin 0.3 MG/DL 0.3 MG/DL Sodium Level 139 MEQ/L 140 MEQ/L 140 MEQ/L Potassium Level 4.1 MEQ/L 4.0 MEQ/L 3.7 MEQ/L Chloride Level 109 MEQ/L 108 MEQ/L 107 MEQ/L Carbon Dioxide Level 20.6 MEQ/L 23.0 MEQ/L 23.8 MEQ/L Anion Gap 9 MEQ/L 9 MEQ/L 9 MEQ/L Estimat Glomerular Filtration Rate 56 ML/MIN 52 ML/MIN 50 ML/MIN Protein Corrected Calcium 8.1 MG/DL 8.1 MG/DL 8.4 MG/DL Lactic Acid Level 1.6 mmol/L Microbiology Date/Time Source Procedure Growth Status 02/20/17 12:35 Blood Peripheral Aerobic Blood Culture Pending Received 02/20/17 12:35 Blood Peripheral Anaerobic Blood Culture Pending Received 02/20/17 12:20 Blood Peripheral Aerobic Blood Culture Pending Received 02/20/17 12:20 Blood Peripheral Anaerobic Blood Culture Pending Received 02/20/17 12:55 Sputum Endotracheal Gram Stain Pending Received 02/20/17 12:55 Sputum Endotracheal Sputum Culture Pending Received 02/20/17 12:10 Urine Clean Catch Urine Culture Pending Received Imaging Chest X-Ray 02/20/17 0000 Signed Impressions: Service Date/Time: Monday, February 20, 2017 11:36 - CONCLUSION: 1. Stable very small right and small left pleural effusions with left lower lobe airspace consolidation. 2. No significant interval change. Juan Bhakta MD Abdomen/Pelvis CT 02/19/17 0000 Signed Impressions: Service Date/Time: Sunday, February 19, 2017 19:09 - CONCLUSION: 1. Areas of calcification seen in the right renal collecting system, right renal pelvis, and proximal right ureter. These appear to layer and be dependent suggesting likely to represent smaller areas of milk of calcium or small stones. There is mild dilatation of the right renal collecting system and right ureter. A definite obstructing stone at this time is not seen. 2. A small amount of air within the urinary bladder. This should be correlated with any recent catheterization. 3. Mild bilateral pleural effusions with accompanying atelectasis or consolidation at the left base. The consolidation was present previously. 4. Prominent degenerative change in the lumbar spine and at the hip joints bilaterally. Angelo Manzo MD Chest X-Ray 02/12/17 0600 Signed Impressions: Service Date/Time: Sunday, February 12, 2017 03:32 - CONCLUSION: 1. Support apparatus in good position. Relatively stable basilar airspace disease and pleural effusions. Trace Holloway MD Upper Extremity Ultrasound 02/10/17 Signed Impressions: Service Date/Time: Friday, February 10, 2017 18:46 - CONCLUSION: Occlusive thrombus in the cephalic and basilic veins. Benjamin Person MD Lung Scan- Nuclear Medicine 02/10/17 Signed Impressions: Service Date/Time: Friday, February 10, 2017 22:17 - CONCLUSION: Low probability pulmonary embolism. Candido Patton MD Head CT 02/10/17 Signed Impressions: Service Date/Time: Friday, February 10, 2017 23:51 - CONCLUSION: Negative noncontrast CT brain. Candido Patton MD Chest CT 02/10/17 Signed Impressions: Service Date/Time: Friday, February 10, 2017 23:56 - CONCLUSION: Left lower lobe collapse with consolidation. Patchy infiltrates the medial right lower lung. Candido Patton MD Abdomen/Pelvis CT 02/10/17 Signed Impressions: Service Date/Time: Friday, February 10, 2017 23:59 - CONCLUSION: 1. Nonobstructing 12 mm calcified stone lower pole right kidney. 2. Atrophic left kidney with significant cortical thinning. 3. Bilateral fat-containing inguinal hernias, large on the right, and moderate on the left. 4. Consolidative collapse of the left lower lobe. Candido Patton MD Abdomen X-Ray 02/10/17 Signed Impressions: Service Date/Time: Friday, February 10, 2017 08:14 - CONCLUSION: No acute abdominal abnormality is identified. Angelo Allen MD Wrist X-Ray 02/06/17 Signed Impressions: Service Date/Time: Monday, February 06, 2017 12:50 - CONCLUSION: Minimally displaced distal radius and ulnar fractures. Armando Dodd MD Lumbar Puncture Fluoroscopy 02/01/17 Signed Impressions: Service Date/Time: January 09:35 - CONCLUSION: Uncomplicated fluoroscopically guided lumbar puncture. CSF was clear. Nabeel Peralta MD Head Magnetic Resonance Angiography 01/27/17 Signed Impressions: Service Date/Time: Friday, January 27, 2017 10:33 - CONCLUSION: No intracranial vascular abnormality is identified. There is no aneurysm visualized. Angelo Allen MD IVC Filter Placement X-Ray 01/25/17 Signed Impressions: Service Date/Time: January 10:29 - CONCLUSION: Uncomplicated inferior vena cava filter placement as above. Yung Fowler MD Thoracic Spine MRI 01/24/17 Signed Impressions: Service Date/Time: Tuesday, January 24, 2017 22:29 - CONCLUSION: 1. Mild degenerative spondylosis most prominently at T11-L1 with slight effacement of the anterior thecal sac and left lateral recess. No significant neural foraminal stenosis. 2. No acute fracture. Juan Bhakta MD Renal Ultrasound 01/23/17 Signed Impressions: Service Date/Time: Monday, January 23, 2017 08:53 - CONCLUSION: 1. Evidence of chronic parenchymal disease of both kidneys. No obstructive uropathy or other acute abnormality demonstrated. 2. Trace ascites, nonspecific. Angelo Garrido MD Lumbar Spine MRI 01/23/17 Signed Impressions: Service Date/Time: Monday, January 23, 2017 17:01 - CONCLUSION: 1. At L4-5 is a broad-based disc protrusion with severe central canal and lateral recess stenosis and flattening of the exiting right L4 nerve root. 2. L5-S1 there is a disc protrusion and moderate stenosis with flattening of the exiting L5 nerve roots bilaterally. 3. At L3-4 there is a moderate to severe central stenosis and lateral recess stenosis with mild foraminal stenosis. 4. No acute fracture or spondylolisthesis. Trace Holloway MD Lower Extremity Ultrasound 01/23/17 Signed Impressions: Service Date/Time: Monday, January 23, 2017 09:53 - CONCLUSION: Bilateral focal lower extremity DVT involving the posterior tibial veins. Angelo Garrido MD Cervical Spine MRI 01/23/17 Signed Impressions: Service Date/Time: Monday, January 23, 2017 17:01 - CONCLUSION: 1. Multilevel cervical spine degenerative changes as above. 2. Mild degrees of spinal stenosis at C3/C4-C6/C7. No cord compression or cord signal abnormality. 3. Age indeterminate left paracentral/foraminal disc protrusion at C6/C7. 4. Multilevel foraminal stenosis, most severe on the left at C6/C7. Please see individual levels above. 5. No fracture or subluxation of the cervical spine. Angelo Garrido MD Brain MRI 01/23/17 0000 Signed Impressions: Service Date/Time: Monday, January 23, 2017 17:01 - CONCLUSION: 1. No acute stroke or other acute intracranial abnormality demonstrated. 2. Moderate severity chronic white matter changes, nonspecific but most likely related to chronic small vessel disease. 3. Few scattered tiny lacunar infarcts of the brainstem. 4. Given the findings are not entirely specific, clinical evaluation for possible multiple sclerosis recommended. Angelo Garrido MD Knee X-Ray 01/22/172053 Signed Impressions: Service Date/Time: Sunday, January 22, 2017 21:17 - CONCLUSION: 1. Evidence of moderate to large joint effusion. 2. No acute fracture or malalignment. 3. Mild 3 compartment osteoarthritic change. Benjamin Person MD Hip and Pelvis X-Ray 01/22/172053 Signed Impressions: Service Date/Time: Sunday, January 22, 2017 21:10 - CONCLUSION: 1. Mild to moderate degenerative change of both hips with no acute fracture or malalignment. There is flattening and remodeling of the right humeral head. Benjamin Person MD Physical Exam GENERAL: Sedated on the evnt SKIN: Warm and dry. No generalized rash, no ecchymoses and no evidence of embolic lesions. EYES: [place] conjunctiva. No petechia or hemorrhage. Pupils equal, round and reactive to light. No scleral icterus. EARS, NOSE AND THROAT: Nose without bleeding or purulent nasal discharge. He is orally intubated NECK: Trachea midline. Supple and no meningeal signs CARDIOVASCULAR: Regular rate and rhythm. Soft heart sounds. No murmurs, rubs or gallops heard RESPIRATORY: Coarse BS bilaterally ABDOMEN: Soft, nondistended, bowel sounds present and normoactive, no reaction to palpation. No guarding. EXTREMITIES: No clubbing, cyanosis. Both hands less edematous. Has evidence of multiple gouty tophi in both hands and feet. LUE - wound vac in place NEUROLOGICAL: Sedated PSYCHIATRIC: Unable to assess LINE: Line with no evidence of infection : Sloan in place, urine looks clear Assessment & Plan Remarks IMPRESSION New shock, sepsis, ?aspiration MSSA sepsis, with shock, due to suppurative thrombophlebitis LUE, S/P I and D and excision of portion of cephalic vein - off pressors Respiratory failure, CXR now with infiltrates - sputum with MSSA - extubated Recurrent respiratory failure, ?aspiration Recent Rx 7 days high dose solumedrol for transverse myelitis Wu LE DVT has IVC filter placed 01/25 - ?hypercoagulable state Chronic kidney disease Known DM, HTN Gouty tophi both hands and feet Diarrhea, C diff negative RECOMMENDATION Continue IV Oxacillin - plan 6 weeks for Rx endovascular infection - anticipated end date Mar 25 Continue Zosyn Will use Zyvox for MRSA coverage Add Diflucan Follow new C/S Monitor progress Will need 6 weeks IV Abx from date of last (+) BC for MSSA bacteremia Irene Edwards MD Feb 20, 2017 14:48
[2017-02-20] MEDS: FLUCONAZOLE 400 MG PREMIX BAG 200 ML IV SCH (15:41)
[2017-02-20] MEDS: LINEZOLID 600 MG PREMIX 300 ML IV SCH (15:41)
[2017-02-20] MEDS: RESP: ALBUTEROL 2.5 MG/IPRATROPIUM 0.5 MG NEB (SCH) INH ×2 (15:58→20:36)
[2017-02-20] MEDS: INSULIN NovoLIN REGULAR SUPPLEMENTAL SCALE SQ SCH ×2 (16:00→20:00)
--- NOTE | 2017-02-20 16:05 | PD.VS.PN ---
Subjective Subjective/Hospital Course Pt had an episode of respiratory distress late am and is now intubated Wound vac dressing changed to L UE L UE I/D site w/ Improved healing Objective Vitals/I&O Date Time Temp Pulse Resp B/P (MAP) Pulse Ox O2 Delivery O2 Flow Rate FiO2 02/20/17 12:17 100 100 02/20/17 08:00 100.2 122 26 162/95 (117) 92 02/20/17 04:03 96.7 98 19 153/63 (93) 98 02/20/17 01:30 96.9 97 18 168/69 (102) 98 02/19/17 20:54 96.2 99 18 146/82 (103) 99 02/19/17 16:00 100.0 98 20 109/69 (82) 93 02/20/17 02/20/17 02/20/17 07:00 15:00 23:00 Intake Total 200 ml 100 ml Output Total 550 ml Balance -350 ml 100 ml Physical Exam GENERAL: Pt intubated SKIN: Warm and dry. L UE I/D site with improved healing since last assessment no R/D/O/S + granulation tissue Laboratory Laboratory Tests Test 02/20/17 08:50 02/20/17 12:10 02/20/17 12:20 02/20/17 13:10 White Blood Count 18.4 23.2 Red Blood Count 3.88 3.87 Hemoglobin 10.6 10.3 Hematocrit 32.8 32.3 Mean Corpuscular Volume 84.6 83.6 Mean Corpuscular Hemoglobin 27.2 26.6 Mean Corpuscular Hemoglobin Concent 32.2 31.9 Red Cell Distribution Width 19.7 19.9 Platelet Count 277 299 Mean Platelet Volume 8.5 8.4 Neutrophils (%) (Auto) 79.4 82.4 Lymphocytes (%) (Auto) 9.1 6.5 Monocytes (%) (Auto) 9.0 8.7 Eosinophils (%) (Auto) 2.3 1.9 Basophils (%) (Auto) 0.2 0.5 Neutrophils # (Auto) 14.6 19.1 Lymphocytes # (Auto) 1.7 1.5 Monocytes # (Auto) 1.6 2.0 Eosinophils # (Auto) 0.4 0.4 Basophils # (Auto) 0.0 0.1 CBC Comment AUTO DIFF AUTO DIFF Differential Total Cells Counted 100 100 Neutrophils % (Manual) 60 76 Band Neutrophils % 16 6 Lymphocytes % 9 5 Monocytes % 9 6 Eosinophils % 2 Neutrophils # (Manual) 14.7 20.6 Myelocytes 4 3 Differential Comment FINAL DIFF MANUAL FINAL DIFF MANUAL Platelet Estimate NORMAL Platelet Morphology Comment NORMAL Polychromasia 2.3 Blood Urea Nitrogen 18 19 Creatinine 1.38 1.44 Random Glucose 128 122 Total Protein 4.7 4.6 Calcium Level 6.8 7.0 Sodium Level 140 140 Potassium Level 4.0 3.7 Chloride Level 108 107 Carbon Dioxide Level 23.0 23.8 Anion Gap 9 9 Estimat Glomerular Filtration Rate 52 50 Protein Corrected Calcium 8.1 8.4 Urine Color YELLOW Urine Turbidity CLOUDY Urine pH 5.5 Urine Specific [place] 1.018 Urine Protein 100 Urine Glucose (UA) NEG Urine Ketones NEG Urine Occult Blood MOD Urine Nitrite NEG Urine Bilirubin NEG Urine Urobilinogen LESS THAN 2.0 Urine Leukocyte Esterase LARGE Urine RBC 15 Urine WBC 159 Urine Bacteria OCC Microscopic Urinalysis Comment CULTURE INDICATED Blood Gas Puncture Site LINE RT RADIAL Blood Gas Patient Temperature 98.6 98.6 Venous Blood pH 7.35 Venous Blood Partial Pressure CO2 42 Venous Blood Partial Pressure O2 50 Venous Blood HCO3 22 Venous Blood Oxygen Saturation 78 Venous Blood Oxygen Content 11.2 Venous Blood Base Excess -2.5 Oxygen Delivery Device VENT VENT Blood Gas Ventilator Setting [facility]//550/10PEEP [facility]/550/10PEEP Blood Gas Inspired Oxygen 100 100 Metamyelocytes 4 Blood Gas HCO3 22 Blood Gas Base Excess -2.1 Blood Gas Oxygen Saturation 98 Arterial Blood pH 7.37 Arterial Blood Partial Pressure CO2 40 Arterial Blood Partial Pressure O2 316 Arterial Blood Oxygen Content 14.6 Arterial Blood Carboxyhemoglobin 1.2 Arterial Blood Methemoglobin 0.9 Blood Gas Hemoglobin 10.1 Albumin 1.4 Alkaline Phosphatase 130 Aspartate Amino Transf (AST/SGOT) 18 Alanine Aminotransferase (ALT/SGPT) 15 Total Bilirubin 0.3 Lactic Acid Level 1.6 Prothrombin Time 14.4 Prothromb Time International Ratio 1.3 Activated Partial Thromboplast Time 44.1 Date/Time Source Procedure Growth Status 02/20/17 12:35 Blood Peripheral Aerobic Blood Culture Pending Received 02/20/17 12:35 Blood Peripheral Anaerobic Blood Culture Pending Received 02/01/17 09:55 Cerebral Spinal Fluid Lumbar Puncture Fungal Smear - Final NO FUNGAL ELEMENTS SEEN. Resulted 02/01/17 09:55 Cerebral Spinal Fluid Lumbar Puncture Fungal Culture - Preliminary NO GROWTH IN 2 WEEKS Resulted 02/17/17 05:55 Stool Stool Stool Occult Blood (GREGORY) - Final HEMOCCULT POSITIVE Complete 02/20/17 12:55 Sputum Endotracheal Gram Stain - Final Resulted 02/20/17 12:55 Sputum Endotracheal Sputum Culture Pending Resulted 02/20/17 12:10 Urine Clean Catch Urine Culture Pending Received 02/11/17 09:10 Abscess Arm Acid Fast Stain - Final NO ACID FAST BACILLI SEEN Resulted 02/11/17 09:10 Abscess Arm Mycobacterial Culture - Preliminary NO GROWTH IN 1 WEEK Resulted Imaging Last 48 hours Impressions Chest X-Ray 02/20/17 0000 Signed Impressions: Service Date/Time: Monday, February 20, 2017 12:46 - CONCLUSION: 1. ETT approximately 1.7 cm above the roxanna. Left subclavian central line in proximal SVC. 2. No pneumothorax. 3. Stable trace right pleural effusion and small left pleural effusion with left lower lobe consolidation. Juan Bhakta MD Chest X-Ray 02/20/17 0000 Signed Impressions: Service Date/Time: Monday, February 20, 2017 11:36 - CONCLUSION: 1. Stable very small right and small left pleural effusions with left lower lobe airspace consolidation. 2. No significant interval change. Juan Bhakta MD Abdomen/Pelvis CT 02/19/17 0000 Signed Impressions: Service Date/Time: Sunday, February 19, 2017 19:09 - CONCLUSION: 1. Areas of calcification seen in the right renal collecting system, right renal pelvis, and proximal right ureter. These appear to layer and be dependent suggesting likely to represent smaller areas of milk of calcium or small stones. There is mild dilatation of the right renal collecting system and right ureter. A definite obstructing stone at this time is not seen. 2. A small amount of air within the urinary bladder. This should be correlated with any recent catheterization. 3. Mild bilateral pleural effusions with accompanying atelectasis or consolidation at the left base. The consolidation was present previously. 4. Prominent degenerative change in the lumbar spine and at the hip joints bilaterally. Agnelo Manzo MD Assessment and Plan Assessment: (1) Thrombophlebitis arm Plan Patient with healing left I&D site. Patient intubated after respiratory distress episode. Plan Continue wound vac therapy for a few more weeks for optimal healing Change wound vac dressing every /Sun Wound care- Follow up with wound care clinic as an outpatient. (this should be arranged before discharge) No vascular interventions needed at this time D/w wound care team Namita ARRINGTON [facility] [phone] Discharge Planning Signing off No vascular interventions at this time Namita Solorzano Feb 20, 2017 16:05
[2017-02-20] MEDS: PROPOFOL 1000 MG/100 ML INJ 100 ML IV SCH ×2 (16:12→22:11)
--- NOTE | 2017-02-20 16:43 | EKG ---
Date Performed: 02/20/2017 Time Performed: 11:42:28 PTAGE: 62 years EKG: SINUS TACHYCARDIA Compared to prior tracing no significant change ABNORMAL RHYTHM ECG PREVIOUS TRACING : 01/24/2017 12.55 DOCTOR: Gwendolyn Barker Interpretating Date/Time 02/20/2017 16:40:02
[2017-02-20] MEDS: NOREPINEPHRINE-DEXTROSE DRIP 250 ML IV PRN (17:52)
--- NOTE | 2017-02-20 17:54 | PD.WCN.NOT ---
Wound Consult Description: Consult for wound VAC assessment and dressing change to left arm per MURPHY Solorzano Communicated with: RN Recommendation: Change wound VAC to left arm as ordered and Additional Information: Patient seen on for wound VAC assessment and dressing change with MURPHY Pavon Neg Pressure Wound Therapy Wound Location Wound Location: Left arm Wound Description Length: 5cm Width: 1.9cm Depth: 1.3cm Underminin.1cm at 12 o'clock ~1cm undermining from 1-3 o'clock Wound bed appearance: 80% Red granulating tissue 20% red non granulating tissue Minimal sanguinous drainage with foam removal Wound margins open Periwound appearance: Other (ecchymosis) Settings Suction: 125 mmHg, Continuous Other Information: Windowpaned, Mushroomed (1 piece black granufoam used for trac pad placement) Foam type: Black Number of pieces: 1 (1 piece used in wound bed) Additonal Information Patient seen on for wound VAC change to left arm. Transparent dressing covering left arm wound VAC was dated 02/14/17. It would appear that the wound VAC has been in place without interruption as evidenced by the dressing date and nursing documentation that was reviewed. Wound VAC changes were ordered for and s per MURPHY Solorzano. Wound VAC was removed from left upper arm to reveal a vascular wound bed with red granulating and non granulating tissue noted throughout. Wound was cleansed with NS and gauze and measured above. Periwound was skin prepped using Cavilon spray and then allowed to dry prior to window paning. 1 piece of black granufoam was applied into wound bed and secured with VAC drape. A hole was then cut in the drape to allow for mushroomed piece of black granufoam to be applied with trac pad. Wound VAC was turned on with settings @ 125mmHg low continuous suction without leaks noted. Next dressing change is Sunday and can be done by floor RN using small VAC dressing. Juana Osman [facility] Feb 20, 2017 17:54
[2017-02-20] MEDS: DEXTROSE 10% INJ 1,000 ML IV SCH (17:55)
--- NOTE | 2017-02-20 18:30 | PD.CONS ---
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 - Acute transverse myelitis in demyelinating disease of central nervous system (2) Septic shock ICD Code: A41.9 - Sepsis, unspecified organism; R65.21 - Severe sepsis with septic shock (3) HCAP (healthcare-associated pneumonia) ICD Code: J18.9 - Pneumonia, unspecified organism (4) Acute respiratory failure with hypoxia and hypercarbia ICD Code: J96.01 - Acute respiratory failure with hypoxia; J96.02 - Acute respiratory failure with hypercapnia (5) Hyperlipidemia ICD Code: E78.5 - Hyperlipidemia, unspecified (6) HTN (hypertension) ICD Code: I10 - Essential (primary) hypertension (7) DVT of lower extremity, bilateral ICD Code: I82.403 - Acute embolism and thrombosis of unspecified deep veins of lower extremity, bilateral (8) Diabetes mellitus with hyperglycemia ICD Code: E11.65 - Type 2 diabetes mellitus with hyperglycemia (9) Hypocalcemia ICD Code: E83.51 - Hypocalcemia (10) Hypernatremia ICD Code: E87.0 - Hyperosmolality and hypernatremia (11) Hypokalemia ICD Code: E87.6 - Hypokalemia (12) Acute metabolic encephalopathy ICD Code: G93.41 - Metabolic encephalopathy (13) Quadriparesis ICD Code: G82.50 - Quadriplegia, unspecified (14) BREEZY (acute kidney injury) ICD Code: N17.9 - Acute kidney failure, unspecified (15) Diarrhea ICD Code: R19.7 - Diarrhea, unspecified (16) Abdominal pain ICD Code: R10.9 - Unspecified abdominal pain (17) Hypoglycemia ICD Code: E16.2 - Hypoglycemia, unspecified (18) Urinary retention ICD Code: R33.9 - Retention of urine, unspecified History of Present Illness 62yo male with history of DM, DVT, Transverse Myelitis, currently intubated and sedated, seen in consultation for right sided nephrolithiasis with mild hydronephrosis. Patient currently intubated and sedated. History obtained from chart. Patient has been admitted for approx 1 month. His hospital course has been complicated with DVT, IVC filter placement, weakness, respiratory failure requiring intubation. Now with gram positive blood cultures. He also has a history of CKD, and has been seen by Nephrology. Recent CT scan identified mild right hydronephrosis with small stones/dust settling in the collecting system, no evidence of obstruction. Atrophic left kidney. Normal Creatinine. He does have a history of nephrolithiasis with treatment in the past. His overall renal function has improved since admit. Review of Systems ROS Limitations: Clinical Condition, Intubated Constitutional: DENIES: Fever Respiratory: COMPLAINS OF: Apneas, Shortness of breath Cardiovascular: DENIES: Chest pain Gastrointestinal: COMPLAINS OF: Abdominal pain, DENIES: Nausea, Vomiting Genitourinary: DENIES: Hematuria Musculoskeletal: COMPLAINS OF: Joint Swelling Hematologic/lymphatic: COMPLAINS OF: Bruising Except as stated in HPI: all other systems reviewed are Neg Past Family Social History Past Medical History Gouty arthritis Chronic kidney disease secondary to multiple kidney stones Past Surgical History Rhinoplasty Kidney stents, 2007 Reported Medications Reported Meds & Active Scripts Active Hydrocodone-Acetaminophen 7.5-325 mg Tab 1 Tab PO Q4H PRN Norvasc (Amlodipine Besylate) 5 Mg Tab 5 Mg PO DAILY Wheelchair Elevated Leg (Device) 1 Mis Mis Ea DIRECTED Commode 3-in-1 (Device) 1 Mis Mis Ea .ROUTE DIRECTED Reported Atorvastatin (Atorvastatin Calcium) 10 Mg Tab 10 Mg PO HS Glipizide 5 Mg Tab 5 Mg PO BIDAC Take 30 minutes before a meal Atenolol 25 Mg Tab 25 Mg PO DAILY Allergies: Coded Allergies: levofloxacin (Verified Allergy, Severe, 01/22/17) Active Ordered Medications Current Medications Medications (Trade) Dose Ordered Sig/Rosalia Route Start Time Stop Time Status Last Admin (NS Flush) 2 ml UNSCH PRN IV FLUSH 01/23/17 00:30 02/01/17 05:07 (NS Flush) 2 ml BID IV FLUSH 01/23/17 09:00 02/20/17 09:15 (Tylenol) 650 mg Q4H PRN PO 01/23/17 00:30 02/14/17 20:50 (Zofran Inj) 4 mg Q6H PRN IVP 01/23/17 00:30 02/10/17 06:45 ([place] 5-325 Mg) 1 tab Q4H PRN PO 01/23/17 00:30 02/17/17 00:00 ([place] 7.5-325 Mg) 1 tab Q4H PRN PO 01/23/17 00:30 02/18/17 15:55 (Narcan Inj) 0.4 mg UNSCH PRN IV 01/23/17 00:30 ([place]-Colace) 1 tab BID PO 01/23/17 09:00 02/16/17 22:05 (Milk Of Magnesia Liq) 30 ml Q12H PRN PO 01/23/17 00:30 02/09/17 12:30 (Senokot) 17.2 mg Q12H PRN PO 01/23/17 00:30 02/09/17 12:30 (Dulcolax Supp) 10 mg DAILY PRN RECTAL 01/23/17 00:30 (Lipitor) 10 mg HS PO 01/24/17 21:00 02/19/17 22:34 (Morphine Inj) 2 mg Q3H PRN IV PUSH 02/10/17 06:15 02/20/17 03:38 (Pepcid Inj) 20 mg HS IV PUSH 02/10/17 22:45 02/19/17 22:33 (Glucagon Inj) 1 mg UNSCH PRN OTHER 02/11/17 05:45 02/18/17 18:53 (Xarelto) 15 mg BID PO 02/15/17 15:00 Future Hold 02/17/17 22:53 (K-Phos Neutral) 250 mg Q8HR PO 02/17/17 15:00 02/20/17 06:40 (Flomax) 0.4 mg Q12HR PO 02/17/17 15:00 02/19/17 22:33 (Lovenox Inj) 100 mg Q12H SQ 02/18/17 12:00 Future hold 02/19/17 13:05 Lactated Ringer's 1,000 ml @ 30 mls/hr Q24H PRN IV 02/18/17 17:00 02/21/17 16:59 Sodium Chloride 500 ml @ 30 mls/hr [id number] PRN IV 02/18/17 17:00 02/21/17 16:59 (Lopressor) 25 mg SHOE REPAIR SUPERVISOR PRN PO 02/18/17 16:45 02/21/17 16:44 (Betadine 5% Antisepsis Kit) 1 applic SHOE REPAIR SUPERVISOR PRN EACH NARE 02/18/17 16:45 02/21/17 16:44 (Chlorhexidine 2% Cloth) 3 pack SHOE REPAIR SUPERVISOR PRN TOPICAL 02/18/17 16:45 02/21/17 16:44 (NovoLIN R INJ) See Protocol Table ... SHOE REPAIR SUPERVISOR PRN SQ 02/18/17 16:45 02/21/17 16:44 (Lactinex) 1 tab TID PO 02/19/17 13:00 02/20/17 17:51 (Apresoline Inj) 10 mg Q30M PRN IV PUSH 02/20/17 11:45 (Haldol Inj) 5 mg Q4H PRN IV 02/20/17 12:45 Dextrose 1,000 ml @ 42 mls/hr [id number] IV 02/20/17 13:00 02/20/17 17:55 Propofol 100 ml @ 3.219 mls/ hr TITRATE IV 02/20/17 12:45 02/20/17 16:12 Fentanyl Citrate 250 ml @ 2.5 mls/hr TITRATE IV 02/20/17 12:45 (Mag-Ox) 800 mg UNSCH PRN PO 02/20/17 12:45 Magnesium Sulfate 4 gm/Sodium Chloride 100 ml @ 50 mls/hr UNSCH PRN IV 02/20/17 12:45 Magnesium Sulfate 2 gm/Sodium Chloride 100 ml @ 50 mls/hr UNSCH PRN IV 02/20/17 12:45 Potassium Chloride 100 ml @ 50 mls/hr Q2H PRN IV 02/20/17 12:45 Potassium Chloride 100 ml @ 50 mls/hr Q2H PRN IV 02/20/17 12:45 Potassium Chloride 100 ml @ 50 mls/hr Q2H PRN IV 02/20/17 12:45 Potassium Chloride 100 ml @ 25 mls/hr UNSCH PRN IV 02/20/17 12:45 (K-Phos) 2,000 mg Q4H PRN PO 02/20/17 12:45 (K-Phos) 2,000 mg UNSCH PRN PO/TUBE 02/20/17 12:45 Potassium Phosphate 30 mmol/ Sodium Chloride 260 ml @ 42 mls/hr UNSCH PRN IV 02/20/17 12:45 Sodium Phosphate 30 mmol/Sodium Chloride 250 ml @ 42 mls/hr UNSCH PRN IV 02/20/17 12:45 (Peridex 0.12% Liq) 15 ml BID@08,20 MT 02/20/17 20:00 (D50w (Vial) Inj) 25 ml UNSCH PRN IV PUSH 02/20/17 12:45 (NovoLIN R SUPPLEMENTAL SCALE) 1 Q4HR SQ 02/20/17 16:00 (Duoneb Neb) 1 ampule Q6HR NEB INH 02/20/17 16:00 02/20/17 15:58 (Duoneb Neb) 1 ampule Q2HR NEB PRN INH 02/20/17 12:45 Norepinephrine Bitartrate 250 ml @ 7.5 mls/hr TITRATE PRN IV 02/20/17 12:45 02/20/17 17:52 (Brethine Inj) 1 mg UNSCH PRN SQ 02/20/17 12:45 Vasopressin 40 units/Dextrose 100 ml @ 4.5 mls/hr [id number] IV 02/20/17 14:00 Piperacillin Sod/ Tazobactam Sod 100 ml @ 200 mls/hr Q6H IV 02/20/17 20:00 Linezolid 300 ml @ 300 mls/hr Q12H IV 02/20/17 16:00 02/20/17 15:41 Fluconazole/ Sodium Chloride 200 ml @ 100 mls/hr Q24H IV 02/20/17 15:00 02/20/17 15:41 Family History Family history reviewed and noncontributory to present illness Social History No Tobacco No ETOH Illicit Drugs, denies Physical Exam Vital Signs Date Time Temp Pulse Resp B/P (MAP) Pulse Ox O2 Delivery O2 Flow Rate FiO2 02/20/17 17:52 68 119/70 02/20/17 16:00 85 02/20/17 16:00 98.4 85 20 100 105/61 (76) 02/20/17 16:00 60 02/20/17 15:59 100 60 02/20/17 14:00 99 02/20/17 12:30 107 02/20/17 12:30 60 02/20/17 12:30 101.5 107 23 140/70 (93) 98 02/20/17 12:17 100 100 02/20/17 08:00 100.2 122 26 162/95 (117) 92 02/20/17 04:03 96.7 98 19 153/63 (93) 98 02/20/17 01:30 96.9 97 18 168/69 (102) 98 02/19/17 20:54 96.2 99 18 146/82 (103) 99 Physical Exam GENERAL: This is a well-developed patient, Intubated and sedated SKIN: Multiple ecchymosis in upper extrmities with wound vac on left UE HEAD: Atraumatic. Normocephalic. EYES: No scleral icterus. No injection or drainage. ENT: Nose without bleeding, purulent drainage NECK: Trachea midline.. CARDIOVASCULAR: Regular rate and rhythm RESPIRATORY: Intubated and sedated GASTROINTESTINAL: Abdomen soft, nondistended. GENITOURINARY: Circumcised phallus, normal urethral meatus, palmer catheter in place, draining clear yellow urine. Scrotal edema noted MUSCULOSKELETAL: Extremities without clubbing, cyanosis, some LE edema and RUE edema noted NEUROLOGICAL: Intubated and sedated Lab results reviewed: Yes Laboratory Tests Test 02/20/17 08:50 02/20/17 12:10 02/20/17 12:20 02/20/17 13:10 White Blood Count 18.4 23.2 Red Blood Count 3.88 3.87 Hemoglobin 10.6 10.3 Hematocrit 32.8 32.3 Mean Corpuscular Volume 84.6 83.6 Mean Corpuscular Hemoglobin 27.2 26.6 Mean Corpuscular Hemoglobin Concent 32.2 31.9 Red Cell Distribution Width 19.7 19.9 Platelet Count 277 299 Mean Platelet Volume 8.5 8.4 Neutrophils (%) (Auto) 79.4 82.4 Lymphocytes (%) (Auto) 9.1 6.5 Monocytes (%) (Auto) 9.0 8.7 Eosinophils (%) (Auto) 2.3 1.9 Basophils (%) (Auto) 0.2 0.5 Neutrophils # (Auto) 14.6 19.1 Lymphocytes # (Auto) 1.7 1.5 Monocytes # (Auto) 1.6 2.0 Eosinophils # (Auto) 0.4 0.4 Basophils # (Auto) 0.0 0.1 CBC Comment AUTO DIFF AUTO DIFF Differential Total Cells Counted 100 100 Neutrophils % (Manual) 60 76 Band Neutrophils % 16 6 Lymphocytes % 9 5 Monocytes % 9 6 Eosinophils % 2 Neutrophils # (Manual) 14.7 20.6 Myelocytes 4 3 Differential Comment FINAL DIFF MANUAL FINAL DIFF MANUAL Platelet Estimate NORMAL Platelet Morphology Comment NORMAL Polychromasia 2.3 Blood Urea Nitrogen 18 19 Creatinine 1.38 1.44 Random Glucose 128 122 Total Protein 4.7 4.6 Calcium Level 6.8 7.0 Sodium Level 140 140 Potassium Level 4.0 3.7 Chloride Level 108 107 Carbon Dioxide Level 23.0 23.8 Anion Gap 9 9 Estimat Glomerular Filtration Rate 52 50 Protein Corrected Calcium 8.1 8.4 Urine Color YELLOW Urine Turbidity CLOUDY Urine pH 5.5 Urine Specific [place] 1.018 Urine Protein 100 Urine Glucose (UA) NEG Urine Ketones NEG Urine Occult Blood MOD Urine Nitrite NEG Urine Bilirubin NEG Urine Urobilinogen LESS THAN 2.0 Urine Leukocyte Esterase LARGE Urine RBC 15 Urine WBC 159 Urine Bacteria OCC Microscopic Urinalysis Comment CULTURE INDICATED Blood Gas Puncture Site LINE RT RADIAL Blood Gas Patient Temperature 98.6 98.6 Venous Blood pH 7.35 Venous Blood Partial Pressure CO2 42 Venous Blood Partial Pressure O2 50 Venous Blood HCO3 22 Venous Blood Oxygen Saturation 78 Venous Blood Oxygen Content 11.2 Venous Blood Base Excess -2.5 Oxygen Delivery Device VENT VENT Blood Gas Ventilator Setting PRV/14/550/10PEEP PRVC/14/550/10PEEP Blood Gas Inspired Oxygen 100 100 Metamyelocytes 4 Blood Gas HCO3 22 Blood Gas Base Excess -2.1 Blood Gas Oxygen Saturation 98 Arterial Blood pH 7.37 Arterial Blood Partial Pressure CO2 40 Arterial Blood Partial Pressure O2 316 Arterial Blood Oxygen Content 14.6 Arterial Blood Carboxyhemoglobin 1.2 Arterial Blood Methemoglobin 0.9 Blood Gas Hemoglobin 10.1 Albumin 1.4 Alkaline Phosphatase 130 Aspartate Amino Transf (AST/SGOT) 18 Alanine Aminotransferase (ALT/SGPT) 15 Total Bilirubin 0.3 Lactic Acid Level 1.6 Prothrombin Time 14.4 Prothromb Time International Ratio 1.3 Activated Partial Thromboplast Time 44.1 Nasal Screen MRSA (PCR) MRSA NOT DETECTED Date/Time Source Procedure Growth Status 02/20/17 12:35 Blood Peripheral Aerobic Blood Culture Pending Received 02/20/17 12:35 Blood Peripheral Anaerobic Blood Culture Pending Received 02/01/17 09:55 Cerebral Spinal Fluid Lumbar Puncture Fungal Smear - Final NO FUNGAL ELEMENTS SEEN. Resulted 02/01/17 09:55 Cerebral Spinal Fluid Lumbar Puncture Fungal Culture - Preliminary NO GROWTH IN 2 WEEKS Resulted 02/17/17 05:55 Stool Stool Stool Occult Blood (GREGORY) - Final HEMOCCULT POSITIVE Complete 02/20/17 12:55 Sputum Endotracheal Gram Stain - Final Resulted 02/20/17 12:55 Sputum Endotracheal Sputum Culture Pending Resulted 02/20/17 12:10 Urine Clean Catch Urine Culture Pending Received 02/11/17 09:10 Abscess Arm Acid Fast Stain - Final NO ACID FAST BACILLI SEEN Resulted 02/11/17 09:10 Abscess Arm Mycobacterial Culture - Preliminary NO GROWTH IN 1 WEEK Resulted Result Diagram: 02/20/17 1220 02/20/17 1220 Personally reviewed images: Yes Imaging Last Impressions Chest X-Ray 02/20/17 0000 Signed Impressions: Service Date/Time: Monday, February 20, 2017 12:46 - CONCLUSION: 1. ETT approximately 1.7 cm above the roxanna. Left subclavian central line in proximal SVC. 2. No pneumothorax. 3. Stable trace right pleural effusion and small left pleural effusion with left lower lobe consolidation. Juan Bhakta MD Abdomen/Pelvis CT 02/19/17 0000 Signed Impressions: Service Date/Time: Sunday, February 19, 2017 19:09 - CONCLUSION: 1. Areas of calcification seen in the right renal collecting system, right renal pelvis, and proximal right ureter. These appear to layer and be dependent suggesting likely to represent smaller areas of milk of calcium or small stones. There is mild dilatation of the right renal collecting system and right ureter. A definite obstructing stone at this time is not seen. 2. A small amount of air within the urinary bladder. This should be correlated with any recent catheterization. 3. Mild bilateral pleural effusions with accompanying atelectasis or consolidation at the left base. The consolidation was present previously. 4. Prominent degenerative change in the lumbar spine and at the hip joints bilaterally. Angelo Manzo MD Abdomen X-Ray 02/18/17 0000 Signed Impressions: Service Date/Time: Saturday, February 18, 2017 14:35 - CONCLUSION: Normal examination. Device overlies left upper abdomen. Otherwise unremarkable study. Duy Genao MD Upper Extremity Ultrasound 02/10/17 0000 Signed Impressions: Service Date/Time: Friday, February 10, 2017 18:46 - CONCLUSION: Occlusive thrombus in the cephalic and basilic veins. Benjamin Person MD Lung Scan-V Nuclear Medicine 02/10/17 0000 Signed Impressions: Service Date/Time: Friday, February 10, 2017 22:17 - CONCLUSION: Low probability pulmonary embolism. Candido Patton MD Head CT 02/10/17 0000 Signed Impressions: Service Date/Time: Friday, February 10, 2017 23:51 - CONCLUSION: Negative noncontrast CT brain. Candido Patton MD Chest CT 02/10/17 Signed Impressions: Service Date/Time: Friday, February 10, 2017 23:56 - CONCLUSION: Left lower lobe collapse with consolidation. Patchy infiltrates the medial right lower lung. Candido Patton MD Wrist X-Ray 02/06/17 0000 Signed Impressions: Service Date/Time: Monday, February 06, 2017 12:50 - CONCLUSION: Minimally displaced distal radius and ulnar fractures. Armando Dodd MD Lumbar Puncture Fluoroscopy 02/01/17 Signed Impressions: Service Date/Time: January 09:35 - CONCLUSION: Uncomplicated fluoroscopically guided lumbar puncture. CSF was clear. Nabeel Peralta MD Head Magnetic Resonance Angiography 01/27/17 0000 Signed Impressions: Service Date/Time: Friday, January 27, 2017 10:33 - CONCLUSION: No intracranial vascular abnormality is identified. There is no aneurysm visualized. Angelo Allen MD IVC Filter Placement X-Ray 01/25/17 Signed Impressions: Service Date/Time: January 10:29 - CONCLUSION: Uncomplicated inferior vena cava filter placement as above. Yung Fowler MD Thoracic Spine MRI 01/24/17 Signed Impressions: Service Date/Time: Tuesday, January 24, 2017 22:29 - CONCLUSION: 1. Mild degenerative spondylosis most prominently at T11-L1 with slight effacement of the anterior thecal sac and left lateral recess. No significant neural foraminal stenosis. 2. No acute fracture. Juan Bhakta MD Renal Ultrasound 01/23/17 0000 Signed Impressions: Service Date/Time: Monday, January 23, 2017 08:53 - CONCLUSION: 1. Evidence of chronic parenchymal disease of both kidneys. No obstructive uropathy or other acute abnormality demonstrated. 2. Trace ascites, nonspecific. Angelo Garrido MD Lumbar Spine MRI 01/23/17 Signed Impressions: Service Date/Time: Monday, January 23, 2017 17:01 - CONCLUSION: 1. At L4-5 is a broad-based disc protrusion with severe central canal and lateral recess stenosis and flattening of the exiting right L4 nerve root. 2. L5-S1 there is a disc protrusion and moderate stenosis with flattening of the exiting L5 nerve roots bilaterally. 3. At L3-4 there is a moderate to severe central stenosis and lateral recess stenosis with mild foraminal stenosis. 4. No acute fracture or spondylolisthesis. Trace Holloway MD Lower Extremity Ultrasound 01/23/17 Signed Impressions: Service Date/Time: Monday, January 23, 2017 09:53 - CONCLUSION: Bilateral focal lower extremity DVT involving the posterior tibial veins. Angelo Garrido MD Cervical Spine MRI 01/23/17 Signed Impressions: Service Date/Time: Monday, January 23, 2017 17:01 - CONCLUSION: 1. Multilevel cervical spine degenerative changes as above. 2. Mild degrees of spinal stenosis at C3/C4-C6/C7. No cord compression or cord signal abnormality. 3. Age indeterminate left paracentral/foraminal disc protrusion at C6/C7. 4. Multilevel foraminal stenosis, most severe on the left at C6/C7. Please see individual levels above. 5. No fracture or subluxation of the cervical spine. Angelo Garrido MD Brain MRI 01/23/17 Signed Impressions: Service Date/Time: Monday, January 23, 2017 17:01 - CONCLUSION: 1. No acute stroke or other acute intracranial abnormality demonstrated. 2. Moderate severity chronic white matter changes, nonspecific but most likely related to chronic small vessel disease. 3. Few scattered tiny lacunar infarcts of the brainstem. 4. Given the findings are not entirely specific, clinical evaluation for possible multiple sclerosis recommended. Angelo Garrido MD Knee X-Ray [id number]/22/[id number] Signed Impressions: Service Date/Time: Sunday, January 22, 2017 21:17 - CONCLUSION: 1. Evidence of moderate to large joint effusion. 2. No acute fracture or malalignment. 3. Mild 3 compartment osteoarthritic change. Benjamin Person MD Hip and Pelvis X-Ray [id number]/22/[id number] Signed Impressions: Service Date/Time: Sunday, January 22, 2017 21:10 - CONCLUSION: 1. Mild to moderate degenerative change of both hips with no acute fracture or malalignment. There is flattening and remodeling of the right humeral head. Benjamin Person MD Assessment and Plan Problem List: (1) Diabetes ICD Code: E11.9 - Type 2 diabetes mellitus without complications (2) Acute respiratory failure ICD Code: J96.00 - Acute respiratory failure, unspecified whether with hypoxia or hypercapnia Status: Acute (3) Acute renal failure ICD Code: N17.9 - Acute kidney failure, unspecified Status: Acute (4) CKD (chronic kidney disease) stage 3, GFR 30-59 ml/min ICD Code: N18.3 - Chronic kidney disease, stage 3 (moderate) Status: Chronic Assessment and Plan -CT scan images personally reviewed. Right sided small stones noted, layering on the dependant portion of the kidney and proximal ureter, no obstruction. This appears to be more consistent with small dust/stones, possibly remnant from prior stone treatments -Right hydronephrosis also noted with hydroureter extending to the distal right ureter. No obstructing stone or lesion noted. Ureter can be traced to the bladder without any abnormalities. CT scan completed without palmer catheter in place. -Left atrophic, likely nonfunctional kidney with minimal renal parenchyma. Most urine production likely coming from right kidney. -Creatinine remains relatively stable despite ongoing medical issues -At this time, based on review of imaging studies and overall clinical picture, no Urological intervention indicated at this time -With an essentially nonfunctional left renal unit, would expect a significant increase and creatinine and overall deterioration of his renal function if the right, essentially solitary functioning kidney was obstructed. However this does not appear to be the case -If his renal function deteriorates, would recommend placement of a right nephrostomy tube. However at this time, do not believe this right collecting system is obstructed as he continues to make urine with an essentially solitary functioning right kidney (therefore cannot be obstructed) with relatively normal creatinine given the overall clinical picture. -Maintain palmer catheter in place until clinical improvement -No further urological intervention at this time. Please call with questions Problem Qualifiers (1) Hyperlipidemia: Qualified Codes: E78.5 - Hyperlipidemia, unspecified (2) HTN (hypertension): Qualified Codes: I10 - Essential (primary) hypertension (3) Diabetes mellitus with hyperglycemia: Qualified Codes: E11.65 - Type 2 diabetes mellitus with hyperglycemia (4) Diarrhea: Qualified Codes: A09 - Infectious gastroenteritis and colitis, unspecified (5) Abdominal pain: Qualified Codes: R10.84 - Generalized abdominal pain (6) Acute renal failure: Qualified Codes: N17.9 - Acute kidney failure, unspecified Obed Sweet MD Feb 20, 2017 18:30
--- NOTE | 2017-02-20 18:56 | PD.PROCEDR ---
Procedure Note Procedure Endotracheal Intubation Diagnosis: Acute hypoxic respiratory failure Indications: Acute hypoxic respiratory failure Consent: Emergent Anesthesia: Versed 10 mg IV, Rocuronium 100 mg IV Description of the Procedure: The patient was positioned in the sniffing position. Pre-oxygenation was performed using a [id number]. Anesthesia was induced via rapid sequence. A Syl #4 was used for laryngoscopy and a Grade I view was obtained. A 8.5 cuffed endotracheal tube was inserted atraumatically through the vocal cords. Confirmation of correct endotracheal tube placement was made by equal and bilateral breath sounds and colorimetric CO2 detection. The endotracheal tube was secured at 23 cm at the teeth. There were no immediate complications noted. The patient remained hemodynamically stable throughout the procedure. A chest x-ray has been ordered. I personally performed the procedure. Anthony Rivas MD Feb 20, 2017 18:56
--- NOTE | 2017-02-20 18:59 | PD.PROCEDR ---
Procedure Note Procedure Central Line Procedure Note Left subclavian triple lumen catheter Diagnosis: Septic shock Indications: Need for highly potent vasoactive substances Consent: Emergent Anesthesia: Versed IV Description of the Procedure: The patient was placed in the supine, mild- Trendelenburg position. The area was prepped and draped sterilely. A 19g needle was inserted under negative pressure aspiration and dark venous blood was obtained. A guidewire was inserted easily without resistance. A small incision was made using a #11 blade. Using a modified Seldinger technique, the dilator and 7 [place], 20 cm catheter were advanced over the guidewire without resistance. All ports were aspirated and flushed, and had brisk blood return. The line was secured at the skin using 2-0 silk interrupted sutures. A Biopatch and Transparent sterile dressing were applied. There were no immediate complications noted. There was minimal EBL. The patient tolerated the procedure well. Ultrasound guidance was not used for this procedure A Chest x-ray has been ordered. I personally performed the procedure. Anthony Rivas MD Feb 20, 2017 18:59
--- NOTE | 2017-02-20 19:00 | PD.PROCEDR ---
Procedure Note Procedure Procedure: Arterial Line Placement Left radial arterial line Diagnosis: Septic shock Indications: For beat to beat hemodynamic monitoring Consent: Emergent Description of the Procedure: The left wrist was prepped and draped sterilely. 1% lidocaine was used for local anesthesia. The pulse was located and a needle was advanced into the artery. A 20 gauge, 12 cm catheter was advanced into the artery using a modified Seldinger technique. The catheter was sutured to the skin and a sterile dressing was applied. The catheter was connected to a pressure transducer and an arterial waveform was noted. There were no immediate complications noted. There was minimal EBL. I personally performed the procedure. Anthony Rivas MD Feb 20, 2017 19:00
[2017-02-20] MEDS: CHLORHEXIDINE 0.12% (ORAL KIT) 15 ML CUP MT SCH (20:22)
[2017-02-20] MEDS: ATORVASTATIN 10 MG TAB PO SCH (20:30)
[2017-02-20] MEDS: PIPERACIL-TAZO 4.5 GM PREMIX 100 ML IV SCH (20:30)
[2017-02-20] MEDS: FAMOTIDINE 20 MG/2 ML VIAL IV PUSH SCH (20:30)
[2017-02-21] VITALS (18 sets, daily range): BP systolic 104–126; BP diastolic 52–68; PULSE 58–70; RESP 15–19; TEMP 97.4–98; O2SAT 99–100
[2017-02-21] MEDS: ENOXAPARIN SODIUM 100 MG/ML SYRINGE SQ SCH ×2 (00:39→11:42)
[2017-02-21] MEDS: RESP: ALBUTEROL 2.5 MG/IPRATROPIUM 0.5 MG NEB (SCH) INH ×4 (03:12→20:26)
[2017-02-21] MEDS: PIPERACIL-TAZO 4.5 GM PREMIX 100 ML IV SCH ×4 (03:17→20:01)
[2017-02-21] MEDS: LINEZOLID 600 MG PREMIX 300 ML IV SCH ×2 (03:17→16:39)
[2017-02-21] MEDS: PROPOFOL 1000 MG/100 ML INJ 100 ML IV SCH ×3 (03:18→21:28)
[2017-02-21] MEDS: MORPHINE SULFATE 4 MG/ML INJ IV PUSH PRN (03:28)
[2017-02-21] MEDS: INSULIN NovoLIN REGULAR SUPPLEMENTAL SCALE SQ SCH ×6 (04:00→20:01)
[2017-02-21 04:20] LABS: BASOPHIL # 0.1 TH/MM3 (0-0.2); BASOPHIL % 0.5 % (0.0-2.0); EOSINOPHIL # 0.4 TH/MM3 (0-0.4); HEMATOCRIT 26.9 % (39.0-51.0); LYMPH % 8.1 % (9.0-44.0); LYMPHOCYTE # 1.7 TH/MM3 (1.0-4.8); MEAN CELL VOLUME 83.7 FL (80.0-100.0); MEAN CORPUSCULAR HEMOGLOBIN 27.2 PG (27.0-34.0); MEAN CORPUSCULAR HGB CONC 32.5 % (32.0-36.0); MONO % 8.3 % (0.0-8.0); NEUT % 81.1 % (16.0-70.0); PLATELET COUNT 210 TH/MM3 (150-450); RED BLOOD COUNT 3.22 MIL/MM3 (4.50-5.90); RED CELL DISTRIBUTION WIDTH 19.2 % (11.6-17.2)
[2017-02-21 04:41] LABS: BICARBONATE 24.2 MEQ/L (21.0-32.0); POTASSIUM 3.3 MEQ/L (3.5-5.1)
[2017-02-21 04:54] LABS: CALCIUM-PROTEIN CORRECTED 8.9 MG/DL (8.5-10.1)
[2017-02-21 05:09] LABS: HEMO FLAGS AUTO DIFF
[2017-02-21] MEDS: POTASSIUM CHLOR 40 MEQ PREMIX 100 ML IV PRN (05:33)
--- NOTE | 2017-02-21 05:42 | RADRPT ---
EXAM DATE/TIME: 02/21/2017 04:12 [place] COMPARISON: 02/20/2017. INDICATIONS : Shortness of breath. MEDICAL HISTORY : Hypertension. Renal calculi SURGICAL HISTORY : IVC Filter placement ENCOUNTER: Subsequent ACUITY: 1 month PAIN SCORE: Non-responsive. LOCATION: Bilateral chest FINDINGS: Mild left base consolidation with a small effusion. Right lung remains clear. No pneumothorax. Heart size stable, within normal limits. Endotracheal tube tip is approximately 4 cm above the roxanna. Nasogastric tube courses into the stoma ch. There is a left subclavian central venous catheter again seen, tip in the superior vena cava. CONCLUSION: Repositioned endotracheal tube, currently about 4 cm above the roxanna. Otherwise no change. Mild left base consolidation again seen. Angelo Garrido MD on February 21, 2017 at 5:40 Board Certified Radiologist. This report was verified electronically.
[2017-02-21] MEDS: POTASSIUM PHOSPHATE/SODIUM PHOSPHATE 250 MG TAB PO SCH ×3 (06:00→21:54)
[2017-02-21] MEDS: LACTOBACILLUS ACIDOPHILUS TAB PO SCH ×3 (07:36→16:39)
[2017-02-21] MEDS: TAMSULOSIN HCL 0.4 MG CAP PO SCH ×2 (07:37→21:53)
[2017-02-21] MEDS: DOCUSATE SODIUM 50 MG/SENNA 8.6 MG TAB PO SCH ×2 (07:37→19:53)
[2017-02-21] MEDS: CHLORHEXIDINE 0.12% (ORAL KIT) 15 ML CUP MT SCH ×2 (08:00→20:02)
[2017-02-21] MEDS: SODIUM CHLORIDE 0.9% FLUSH 10 ML FLUSH IV FLUSH SCH ×2 (09:00→20:02)
[2017-02-21 10:19] LABS: BANDS 9 % (0-6); EOSINOPHILS 2 % (0-4); METAMYELOCYTES 2 % (0-1); MYELOCYTES 1 % (0-0); NEUTROPHIL # MANUAL DIFF 18.7 TH/MM3 (1.8-7.7); POLYS (SEG NEUTROPHILS) 77 % (16-70); WBC DIFF SAMPLE 100
[2017-02-21 10:20] LABS: SCAN/DIFF FINAL DIFF MANUAL
[2017-02-21] MEDS: VASOPRESSIN INJ 40 UNITS in DEXTROSE 5% IN WATER 100ML INJ 98 ML IV SCH ×2 (12:14)
--- NOTE | 2017-02-21 12:28 | HHI.CCPN ---
Subjective Remarks/Hospital Course Date of admission: 01/22 Date of critical care medicine consult 02/10 due to acute hypoxemic respiratory failure requiring emergent intubation 62-year-old male with a past medical history of hypertension, hyperlipidemia, diabetes mellitus, gout, uric acid kidney stones, kidney disease of unknown stage who originally presented to [facility] emergency department on 01/22 after a fall in which he sustained a right distal ulna fracture. He had been experiencing a gradual primarily lower extremity weakness as well as upper extremity weakness that was progressive. Neurology consult was obtained. MRI revealed no acute stroke. He had multifocal white matter changes. Tiny lacunar infarcts of the brainstem. Lumbar MRI report states L4-L5 disc protrusion with cetnral canal stenosis. Dr. Blackwell evaluated and states no cord compression on MRI C/T spine and recommended nonoperative management. Symptoms were felt to be consistent with transverse myelitis and he underwent Solumedrol 250 mg IV q6 hours 01/27-02/02. He also was found to have occlusive thrombus in the bilateral posterior tibial veins. Heparin was being avoided because he had traumatic lumbar puncture on 01/26 and 02/01. IVC filter was placed 01/25. He was undergoing physical therapy, reportedly making some improvements with plan to eventually discharged home with his son (max assist standing, and bed to chair per PT note). Apparently he had some vomiting the evening of 02/09 and additional vomiting on 02/10. He had a fever 102.8 on 02/09. Last recorded bowel movement was 02/03. Tonight he had acute onset of severe hypoxemia and respiratory distress. [facility] called and he was brought emergently to [facility] where his sats were 64% on 100% nonrebreather with mean arterial pressure 44. He was emergently intubated, CVL and art line placed. He is in septic shock. SUBJ: 02/11: Patient remains intubated sedated, critically ill. FiO2 reduced to 80% after increasing PEEP to 12. In severe septic shock Levophed at 16 mcg/m, vasopressin at 0.04 international units. D/W vascular surgery Dr. Enciso. He performed bedside Left upper extremity incision and debridement and excision of septic cephalic vein. 02/12: Remains intubated sedated profoundly septic, in shock on vasopressin and 7 mcg/min Levophed. FiO2 has improved to 45%, WBC count remains elevated with 20 ,000 white count significant left shift. Slight improvement in creatinine 2.9 urine output 750 ml 24 hours. 2-D echo shows LV ejection fraction 20-25%, no vegetation reported. Blood cultures 4 staph aureus. Wound culture pending 02/13: Remains critically ill but stable to improving. WBC count is down to 16, creatinine improving to 2.36. Off all pressors. Urine output also improving. 1.5L in 24 hours 02/14: Extubated 02/13. Tolerating well. WBC now down to 12.8. Creat improving 2.3 to 2. UO 3.4L. remains off all pressors. Was started on Precedex yesterday night for agitation, currently on 0.5 g per KG per hour. Chest x-ray shows left more than right air space disease 02/20/17 Re consult: 62-year-old male who was originally admitted for lower extremity weakness and found to have what was thought to be possible transverse myelitis. His hospital course his included a healthcare associated pneumonia, septic thrombophlebitis, DVT. He was most recently in the hospital floor where he had significant nausea and vomiting and diarrhea. His C. difficile test was recently negative. However, he has experienced worsening acute on chronic renal failure, hypotension, tachycardia, and severe hypoxemia. He did have a bout of vomiting earlier today, and his hospitalist attending suspects that he may have aspirated. He arrives by rapid response to the ICU with a nonrebreather in place in severe respiratory distress with SPO2 of 85%. I emergently intubate the patient, see separate procedure note for details. At this point the patient was hypotensive and tachycardic. He does have a history of an EF of 20%, however clinically he appears in florid septic shock. I placed central line and arterial line started vasopressors and gentle IV fluid resuscitation with 1 L of LR. Patient today was empirically broadened to vancomycin and Zosyn from his oxacillin which was initially treating MSSA bacteremia. He is recultured. Critical-care medicine is consulted to evaluate and manage his worsening multiorgan system failure and decompensated septic shock SUBJ 02/21: Patient remains intubated sedated. Becomes anxious tachypnea on sedation lightening. Chest x-ray shows mild left lower lobe infiltrate. WBC count is slightly improved today from 23.2 t0 21. C Diff negative. UO adequate, creat slightly worsening. 1.57 today Objective Vital Signs Date Time Temp Pulse Resp B/P (MAP) Pulse Ox O2 Delivery O2 Flow Rate FiO2 02/21/17 10:00 66 02/21/17 09:29 100 40 02/21/17 08:00 97.4 17 106/56 (73) Intake and Output 02/21/17 02/21/17 02/22/17 08:00 16:00 00:00 Intake Total 1094 ml Output Total 675 ml Balance 419 ml Result Diagram: 02/21/1739902/21/17399 Imaging Last Impressions Chest X-Ray 02/20/17 0000 Signed Impressions: Service Date/Time: Monday, February 20, 2017 12:46 - CONCLUSION: 1. ETT approximately 1.7 cm above the roxanna. Left subclavian central line in proximal SVC. 2. No pneumothorax. 3. Stable trace right pleural effusion and small left pleural effusion with left lower lobe consolidation. Juan Bhakta MD Abdomen/Pelvis CT 02/19/17 0000 Signed Impressions: Service Date/Time: Sunday, February 19, 2017 19:09 - CONCLUSION: 1. Areas of calcification seen in the right renal collecting system, right renal pelvis, and proximal right ureter. These appear to layer and be dependent suggesting likely to represent smaller areas of milk of calcium or small stones. There is mild dilatation of the right renal collecting system and right ureter. A definite obstructing stone at this time is not seen. 2. A small amount of air within the urinary bladder. This should be correlated with any recent catheterization. 3. Mild bilateral pleural effusions with accompanying atelectasis or consolidation at the left base. The consolidation was present previously. 4. Prominent degenerative change in the lumbar spine and at the hip joints bilaterally. Angelo Manzo MD Abdomen X-Ray 02/18/17 0000 Signed Impressions: Service Date/Time: Saturday, February 18, 2017 14:35 - CONCLUSION: Normal examination. Device overlies left upper abdomen. Otherwise unremarkable study. Duy Genao MD Upper Extremity Ultrasound 02/10/17 0000 Signed Impressions: Service Date/Time: Friday, February 10, 2017 18:46 - CONCLUSION: Occlusive thrombus in the cephalic and basilic veins. Benjamin Person MD Lung Scan-VQ Nuclear Medicine 02/10/17 0000 Signed Impressions: Service Date/Time: Friday, February 10, 2017 22:17 - CONCLUSION: Low probability pulmonary embolism. Candido Patton MD Head CT 02/10/17 0000 Signed Impressions: Service Date/Time: Friday, February 10, 2017 23:51 - CONCLUSION: Negative noncontrast CT brain. Candido Patton MD Chest CT 02/10/17 0000 Signed Impressions: Service Date/Time: Friday, February 10, 2017 23:56 - CONCLUSION: Left lower lobe collapse with consolidation. Patchy infiltrates the medial right lower lung. Candido Pattno MD Wrist X-Ray 02/06/17 0000 Signed Impressions: Service Date/Time: Monday, February 06, 2017 12:50 - CONCLUSION: Minimally displaced distal radius and ulnar fractures. Armando Dodd MD Lumbar Puncture Fluoroscopy 02/01/17 0000 Signed Impressions: Service Date/Time: January 09:35 - CONCLUSION: Uncomplicated fluoroscopically guided lumbar puncture. CSF was clear. Nabeel Peralta MD Head Magnetic Resonance Angiography 01/27/17 0000 Signed Impressions: Service Date/Time: Friday, January 27, 2017 10:33 - CONCLUSION: No intracranial vascular abnormality is identified. There is no aneurysm visualized. Angelo Allen MD IVC Filter Placement X-Ray 01/25/17 0000 Signed Impressions: Service Date/Time: January 10:29 - CONCLUSION: Uncomplicated inferior vena cava filter placement as above. Yung Fowler MD Thoracic Spine MRI 01/24/17 0000 Signed Impressions: Service Date/Time: Tuesday, January 24, 2017 22:29 - CONCLUSION: 1. Mild degenerative spondylosis most prominently at T11-L1 with slight effacement of the anterior thecal sac and left lateral recess. No significant neural foraminal stenosis. 2. No acute fracture. Juan Bhakta MD Renal Ultrasound 01/23/17 0000 Signed Impressions: Service Date/Time: Monday, January 23, 2017 08:53 - CONCLUSION: 1. Evidence of chronic parenchymal disease of both kidneys. No obstructive uropathy or other acute abnormality demonstrated. 2. Trace ascites, nonspecific. Angelo Garrido MD Lumbar Spine MRI 01/23/17 Signed Impressions: Service Date/Time: Monday, January 23, 2017 17:01 - CONCLUSION: 1. At L4-5 is a broad-based disc protrusion with severe central canal and lateral recess stenosis and flattening of the exiting right L4 nerve root. 2. L5-S1 there is a disc protrusion and moderate stenosis with flattening of the exiting L5 nerve roots bilaterally. 3. At L3-4 there is a moderate to severe central stenosis and lateral recess stenosis with mild foraminal stenosis. 4. No acute fracture or spondylolisthesis. Trace Holloway MD Lower Extremity Ultrasound 01/23/17 Signed Impressions: Service Date/Time: Monday, January 23, 2017 09:53 - CONCLUSION: Bilateral focal lower extremity DVT involving the posterior tibial veins. Angelo Garrido MD Cervical Spine MRI 01/23/17 Signed Impressions: Service Date/Time: Monday, January 23, 2017 17:01 - CONCLUSION: 1. Multilevel cervical spine degenerative changes as above. 2. Mild degrees of spinal stenosis at C3/C4-C6/C7. No cord compression or cord signal abnormality. 3. Age indeterminate left paracentral/foraminal disc protrusion at C6/C7. 4. Multilevel foraminal stenosis, most severe on the left at C6/C7. Please see individual levels above. 5. No fracture or subluxation of the cervical spine. Angelo Garrido MD Brain MRI 01/23/17 Signed Impressions: Service Date/Time: Monday, January 23, 2017 17:01 - CONCLUSION: 1. No acute stroke or other acute intracranial abnormality demonstrated. 2. Moderate severity chronic white matter changes, nonspecific but most likely related to chronic small vessel disease. 3. Few scattered tiny lacunar infarcts of the brainstem. 4. Given the findings are not entirely specific, clinical evaluation for possible multiple sclerosis recommended. Angelo Garrido MD Knee X-Ray 01/22/172053 Signed Impressions: Service Date/Time: Sunday, January 22, 2017 21:17 - CONCLUSION: 1. Evidence of moderate to large joint effusion. 2. No acute fracture or malalignment. 3. Mild 3 compartment osteoarthritic change. Benjamin Person MD Hip and Pelvis X-Ray 01/22/172053 Signed Impressions: Service Date/Time: Sunday, January 22, 2017 21:10 - CONCLUSION: 1. Mild to moderate degenerative change of both hips with no acute fracture or malalignment. There is flattening and remodeling of the right humeral head. Benjamin Person MD Objective Remarks GENERAL: Middle-aged male, lying in bed, intubated sedated HEENT: Normocephalic. Atraumatic. Pupils equal, round, reactive, conjugate. Orotracheally intubated NECK: Trachea is midline. There is no JVD. CHEST: Air entry equal bilaterally with coarse rhonchi and few basilar crackles CARDIOVASCULAR: Tachycardic rate, regular rhythm. ABDOMEN: Soft, nontender, nondistended. No guarding. MUSCULOSKELETAL: Pulses 2+. No peripheral edema. NEUROLOGICAL: Intubated sedated, on sedation hold moves all extremities lower extremities weaker than upper Procedures IVC filter placement 01/25/2017 LP 01/26/2017 Urinary Catheter: Yes Assessment to: Continue Vascular Central Line Catheter: Yes Assessment to: Continue A/P Problem List: (1) Septic shock ICD Code: A41.9 - Sepsis, unspecified organism; R65.21 - Severe sepsis with septic shock Status: Acute (2) Acute respiratory failure ICD Code: J96.00 - Acute respiratory failure, unspecified whether with hypoxia or hypercapnia Status: Acute (3) Thrombophlebitis arm ICD Code: I80.8 - Phlebitis and thrombophlebitis of other sites (4) Aspiration pneumonia ICD Code: J69.0 - Pneumonitis due to inhalation of food and vomit Status: Acute (5) Atelectasis of left lung ICD Code: J98.11 - Atelectasis Status: Acute (6) Quadriparesis ICD Code: G82.50 - Quadriplegia, unspecified Status: Acute (7) DVT (deep venous thrombosis) ICD Code: I82.409 - Acute embolism and thrombosis of unspecified deep veins of unspecified lower extremity (8) Altered mental status ICD Code: R41.82 - Altered mental status, unspecified Status: Acute (9) CKD (chronic kidney disease) stage 3, GFR 30-59 ml/min ICD Code: N18.3 - Chronic kidney disease, stage 3 (moderate) Status: Chronic (10) Acute renal failure ICD Code: N17.9 - Acute kidney failure, unspecified Status: Acute (11) Diabetes mellitus ICD Code: E11.9 - Type 2 diabetes mellitus without complications Status: Chronic (12) Distal end of ulna fracture, closed ICD Code: S52.609A - Unspecified fracture of lower end of unspecified ulna, initial encounter for closed fracture Status: Acute (13) Gout ICD Code: M10.9 - Gout, unspecified Status: Chronic Assessment and Plan Assessment: 62yM with now acute and worsening septic shock and associated multi organ system failure including acute hypoxic respiratory failure, acute kidney injury. Likely secondary to healthcare associated pneumonia. Recent diarrhea, but C. Diff negative. Appreciate ID repeat cultures, continue abx. HCAP/ Hospital associated aspiration pneumonia is most likely source. Remains critically ill on vasopressors in shock and worsening respiratory function. NEURO: Acute metabolic encephalopathy Quadriparesis secondary to suspected transverse myelitis Recurrent falls Suspected transverse myelitis. Received Solu-Medrol 250 mg IV every 6 hours 01/27- 02/02, not on steroids at this time LP 01/26 and 02/01. CSF culture negative 01/26, 02/01 Oligoclonal bands negative. CSF/serum IgG index is not elevated. VDRL nonreactive. Cryptococcal antigen negative. Brain MRI 01/23 no acute stroke. Few scattered lacunar infarcts of the brainstem. Moderate chronic white matter changes. MRI cervical/thoracic spine- mild spinal stenosis 3C3/C4 to C6/C7. No cord compression. RPR negative Neurology has been following, Dr. Crenshaw. Repeat CT brain 02/10 - negative Continue PT/OT prop/fent for goal RASS -2. RESP: Acute hypoxemic respiratory failure Healthcare associated pneumonia/Aspiration Pneumonia Intubated emergently 02/10. Extubated 02/13/17 reintubated 02/20 for acute hypoxemia. vent bundle, hob at 30 degrees, nebs send sputum culture VQ scan 02/10 low probability for PE. CT chest02/10 - left lower lobe collapse and consolidation. Right lower lobe infiltrate. CXR 02/21. LLL infiltrate Start CPAP trial in 2 4hours. Did not tolerate sedation hold today If respiratory failure recommendation due to neuromuscular weakness patient may need tracheostomy CV: Septic shock Cardiomyopathy with ejection fraction 20-25% Hyperlipidemia History of hypertension s/p 1L LR bolus trend lactates norepinephrine at 2 mcg/min for goal map > 65 mmhg. Hold metoprolol and norvasc. continue statin. GI: Severe protein energy malnutrition Nausea/vomiting Diarrhea CT abdomen and pelvis 02/10 atrophic left kidney. Bilateral inguinal hernias fat- containing. Nonobstructing 12 mm right kidney stone repeat CT abd/pelvis did not show evidence of obstruction. patient clinically has been having diarrhea (c. diff negative 02/19). also with nausea/vomiting of unclear etiology. will keep NPO for now. Start tube feeds in 24 hours if not extubated FEN/RENAL: Acute kidney injury Chronic kidney disease stage 3-4 History of uric acid kidney stones with prior stent Continue Sloan due to renal failure. Monitor intake and output q1hr. Monitor electrolytes. RIOS/SPEP negative. Nephrology following. ID: Septic shock Abscess and Suppurative thrombophlebitis left upper extremity MSSA bacteremia Acute aspiration pneumonia/HCAP d/c oxacillin broaden to vanc/zosyn ID on board f/u repeat blood, sputum, urine cultures septic shock most likely secondary to pneumonia HEME: DVT, bilateral posterior tibial vein IVC filter Septic thrombophlebitis with occlusive thrombus mid cephalic and basilic vein Ultrasound 01/23/17 - Bilateral lower extremity with occlusive posterior tibial vein DVTs. Heparin was initially started for DVT but was placed on hold due to LP with suspected traumatic tap. now back on full anticoagulation. IV Heparin 02/11/17. IVC filter was placed 01/25/17. He has not been on a DVT prophylaxis. Last LP was 02/01. Ultrasound LUE 02/10 occlusive thrombus mid cephalic vein, basilic vein. ENDO: Diabetes mellitus Hypoglycemia History of prior adrenal insufficiency with shock start on D10w at 42cc/hr for hypoglycemia continue NPO for nausea/vomiting Start Hydrocortisone 100 mg IV q8hr (Recent high dose steroids use now hypotensive, hypoglycemic) q4h accuchecks. MSK: Right distal ulna fracture. Dr. Nathan with orthopedics has evaluated and recommended nonoperative management. Right wrist splint in place. Gout PROPH: Famotidine for stress ulcer prophylaxis. Has IVC filter. therapeutic lovenox. ACCESS: s/p art line, central line. Dispo: admit to ICU. very critically ill. This patient remains critically ill with one or more organ systems which are or may become a threat to life. I have spent in excess of 45 minutes discontinuously in the care and management of this patient. This time is exclusive of procedures, and includes, but is not limited to, evaluation of the patient, review of the medical record, discussions with family, consultants, nursing staff, or respiratory therapy, and documentation in the medical record. Problem Qualifiers (1) Aspiration pneumonia: (2) DVT (deep venous thrombosis): Qualified Codes: I82.443 - Acute embolism and thrombosis of tibial vein, bilateral (3) Acute renal failure: Qualified Codes: N17.9 - Acute kidney failure, unspecified (4) Diabetes mellitus: (5) Gout: Antonietta Stephens MD Feb 21, 2017 12:28
--- NOTE | 2017-02-21 13:29 | HHI.IDPN ---
Subjective Subjective Remarks Patient is a 62-year-old male, admitted to the hospital for evaluation of pain in his right wrist. He gave a history of falling about a week ago and apparently had immediate pain in the right wrist. He did not seek any medical attention initially because reportedly he was very busy. He eventually presented, and he was found to have a distal ulnar fracture on plain films. He also had some redness and swelling. Orthopedics saw the patient, and was being treated conservatively with the splint. During this hospitalization also he started complaining of generalized weakness but more so in his lower extremity than his upper extremity. He had swelling in both lower extremity which revealed evidence of DVT in the posterior tibial veins. Neurology had seen the patient and he underwent lumbar puncture which apparently was traumatic. Patient was therefore not given anticoagulation because of the traumatic LP, and he underwent placement of an IVC filter on January 25. Patient had another lumbar puncture on February 01. He was felt to have transverse myelitis, and he was given high-dose IV Solu-Medrol from January 27 to February 02. There was apparently some improvement in his weakness. The imaging studies done for his weakness showed some spinal stenosis, and neurosurgery was consult that and recommended that there was no surgical intervention to be done. Patient has been stabilizing, but last night apparently deteriorated, and he ended up getting intubated, and had significant hypotension requiring pressors. There was also an ultrasound done of his left upper extremity which showed DVT, and there was evidence of superior 2 thrombophlebitis. Vascular surgery was consult to it and he had IND on his left upper extremity. Patient has had some fevers since yesterday. 2 blood cultures were done yesterday and they're now reported as growing gram-positive cocci in [place] in clusters. He is currently sedated and intubated. He is on Levophed and vasopressin. A central line was placed as well as a femoral a line. He apparently had an IV in his left upper extremity and that was removed yesterday. Patient also has history of chronic kidney disease, and nephrology evaluated the patient. He was just being monitored for his renal insufficiency. Infectious disease consultation has been requested to evaluate the patient. Notes reviewed Temps ok On light sedation, awake and following commands On CPAP Not SOB Off pressors C/S negative so far C diff negative On Abx for MSSA bacteremia due to suppurative thrombophlebitis MELANIE, S/P OR last (+) 02/12 Antibiotics Oxacillin Zosyn Zyvox Diflucan Lines LSC TLC Past Medical History Reviewed Allergies: Coded Allergies: levofloxacin (Verified Allergy, Severe, 01/22/17) Objective . Vital Signs Date Time Temp Pulse Resp B/P (MAP) Pulse Ox O2 Delivery O2 Flow Rate FiO2 02/21/17 13:17 100 40 02/21/17 13:17 40 02/21/17 12:00 66 02/21/17 12:00 98.0 66 17 100 110/54 (72) 02/21/17 12:00 50 02/21/17 10:00 66 02/21/17 09:29 100 40 02/21/17 08:00 97.4 60 17 100 106/56 (73) 02/21/17 08:00 60 02/21/17 08:00 50 02/21/17 06:00 59 02/21/17 04:00 50 02/21/17 04:00 97.5 60 18 100 104/52 (69) 02/21/17 04:00 60 02/21/17 03:10 100 50 02/21/17 02:00 58 02/21/17 00:32 100 60 02/21/17 00:00 58 02/21/17 00:00 60 02/21/17 00:00 97.5 58 15 100 126/66 (86) 02/20/17 22:00 60 02/20/17 20:36 100 60 02/20/17 20:00 60 02/20/17 20:00 67 02/20/17 20:00 97.5 67 15 100 110/57 (74) 02/20/17 18:00 71 02/20/17 17:52 68 119/70 02/20/17 16:00 85 02/20/17 16:00 98.4 85 20 100 105/61 (76) 02/20/17 16:00 60 02/20/17 15:59 100 60 02/20/17 14:00 99 . Laboratory Tests Test 02/20/17 08:50 02/20/17 12:20 02/21/17 04:00 White Blood Count 18.4 TH/MM3 23.2 TH/MM3 21.0 TH/MM3 Red Blood Count 3.88 MIL/MM3 3.87 MIL/MM3 3.22 MIL/MM3 Hemoglobin 10.6 GM/DL 10.3 GM/DL 8.7 GM/DL Hematocrit 32.8 % 32.3 % 26.9 % Mean Corpuscular Volume 84.6 FL 83.6 FL 83.7 FL Mean Corpuscular Hemoglobin 27.2 PG 26.6 PG 27.2 PG Mean Corpuscular Hemoglobin Concent 32.2 % 31.9 % 32.5 % Red Cell Distribution Width 19.7 % 19.9 % 19.2 % Platelet Count 277 TH/MM3 299 TH/MM3 210 TH/MM3 Mean Platelet Volume 8.5 FL 8.4 FL 8.2 FL Neutrophils (%) (Auto) 79.4 % 82.4 % 81.1 % Lymphocytes (%) (Auto) 9.1 % 6.5 % 8.1 % Monocytes (%) (Auto) 9.0 % 8.7 % 8.3 % Eosinophils (%) (Auto) 2.3 % 1.9 % 2.0 % Basophils (%) (Auto) 0.2 % 0.5 % 0.5 % Neutrophils # (Auto) 14.6 TH/MM3 19.1 TH/MM3 17.0 TH/MM3 Lymphocytes # (Auto) 1.7 TH/MM3 1.5 TH/MM3 1.7 TH/MM3 Monocytes # (Auto) 1.6 TH/MM3 2.0 TH/MM3 1.7 TH/MM3 Eosinophils # (Auto) 0.4 TH/MM3 0.4 TH/MM3 0.4 TH/MM3 Basophils # (Auto) 0.0 TH/MM3 0.1 TH/MM3 0.1 TH/MM3 CBC Comment AUTO DIFF AUTO DIFF AUTO DIFF Differential Total Cells Counted 100 100 100 Neutrophils % (Manual) 60 % 76 % 77 % Band Neutrophils % 16 % 6 % 9 % Lymphocytes % 9 % 5 % 8 % Monocytes % 9 % 6 % 1 % Eosinophils % 2 % 2 % Neutrophils # (Manual) 14.7 TH/MM3 20.6 TH/MM3 18.7 TH/MM3 Myelocytes 4 % 3 % 1 % Differential Comment FINAL DIFF MANUAL FINAL DIFF MANUAL FINAL DIFF MANUAL Platelet Estimate NORMAL Platelet Morphology Comment NORMAL Polychromasia 2.3 % Metamyelocytes 4 % 2 % Laboratory Tests Test 02/20/17 08:50 02/20/17 12:20 02/21/17 04:00 Blood Urea Nitrogen 18 MG/DL 19 MG/DL 18 MG/DL Creatinine 1.38 MG/DL 1.44 MG/DL 1.57 MG/DL Random Glucose 128 MG/DL 122 MG/DL 186 MG/DL Total Protein 4.7 GM/DL 4.6 GM/DL 4.1 GM/DL Calcium Level 6.8 MG/DL 7.0 MG/DL 7.2 MG/DL Sodium Level 140 MEQ/L 140 MEQ/L 140 MEQ/L Potassium Level 4.0 MEQ/L 3.7 MEQ/L 3.3 MEQ/L Chloride Level 108 MEQ/L 107 MEQ/L 107 MEQ/L Carbon Dioxide Level 23.0 MEQ/L 23.8 MEQ/L 24.2 MEQ/L Anion Gap 9 MEQ/L 9 MEQ/L 9 MEQ/L Estimat Glomerular Filtration Rate 52 ML/MIN 50 ML/MIN 45 ML/MIN Protein Corrected Calcium 8.1 MG/DL 8.4 MG/DL 8.9 MG/DL Albumin 1.4 GM/DL Alkaline Phosphatase 130 U/L Aspartate Amino Transf (AST/SGOT) 18 U/L Alanine Aminotransferase (ALT/SGPT) 15 U/L Total Bilirubin 0.3 MG/DL Lactic Acid Level 1.6 mmol/L Microbiology Date/Time Source Procedure Growth Status 02/20/17 12:35 Blood Peripheral Aerobic Blood Culture - Preliminary NO GROWTH IN 1 DAY Resulted 02/20/17 12:35 Blood Peripheral Anaerobic Blood Culture - Preliminary NO GROWTH IN 1 DAY Resulted 02/20/17 12:20 Blood Peripheral Aerobic Blood Culture - Preliminary NO GROWTH IN 1 DAY Resulted 02/20/17 12:20 Blood Peripheral Anaerobic Blood Culture - Preliminary NO GROWTH IN 1 DAY Resulted 02/20/17 12:55 Sputum Endotracheal Gram Stain - Final Resulted 02/20/17 12:55 Sputum Endotracheal Sputum Culture - Preliminary MODERATE GROWTH NORMAL RESPIRATORY FL... Resulted 02/20/17 12:10 Urine Clean Catch Urine Culture - Preliminary NO GROWTH IN 24 HOURS. Resulted Imaging Chest X-Ray 02/20/17 0000 Signed Impressions: Service Date/Time: Monday, February 20, 2017 11:36 - CONCLUSION: 1. Stable very small right and small left pleural effusions with left lower lobe airspace consolidation. 2. No significant interval change. Juan Bhakta MD Abdomen/Pelvis CT 02/19/17 0000 Signed Impressions: Service Date/Time: Sunday, February 19, 2017 19:09 - CONCLUSION: 1. Areas of calcification seen in the right renal collecting system, right renal pelvis, and proximal right ureter. These appear to layer and be dependent suggesting likely to represent smaller areas of milk of calcium or small stones. There is mild dilatation of the right renal collecting system and right ureter. A definite obstructing stone at this time is not seen. 2. A small amount of air within the urinary bladder. This should be correlated with any recent catheterization. 3. Mild bilateral pleural effusions with accompanying atelectasis or consolidation at the left base. The consolidation was present previously. 4. Prominent degenerative change in the lumbar spine and at the hip joints bilaterally. Angelo Manzo MD Chest X-Ray 02/12/17 0600 Signed Impressions: Service Date/Time: Sunday, February 12, 2017 03:32 - CONCLUSION: 1. Support apparatus in good position. Relatively stable basilar airspace disease and pleural effusions. Trace Holloway MD Upper Extremity Ultrasound 02/10/17 0000 Signed Impressions: Service Date/Time: Friday, February 10, 2017 18:46 - CONCLUSION: Occlusive thrombus in the cephalic and basilic veins. Benjamin Person MD Lung Scan- Nuclear Medicine 02/10/17 0000 Signed Impressions: Service Date/Time: Friday, February 10, 2017 22:17 - CONCLUSION: Low probability pulmonary embolism. Candido Patton MD Head CT 02/10/17 0000 Signed Impressions: Service Date/Time: Friday, February 10, 2017 23:51 - CONCLUSION: Negative noncontrast CT brain. Candido Patton MD Chest CT 02/10/17 0000 Signed Impressions: Service Date/Time: Friday, February 10, 2017 23:56 - CONCLUSION: Left lower lobe collapse with consolidation. Patchy infiltrates the medial right lower lung. Candido Patton MD Abdomen/Pelvis CT 02/10/17 0000 Signed Impressions: Service Date/Time: Friday, February 10, 2017 23:59 - CONCLUSION: 1. Nonobstructing 12 mm calcified stone lower pole right kidney. 2. Atrophic left kidney with significant cortical thinning. 3. Bilateral fat-containing inguinal hernias, large on the right, and moderate on the left. 4. Consolidative collapse of the left lower lobe. Candido Patton MD Abdomen X-Ray 02/10/17 Signed Impressions: Service Date/Time: Friday, February 10, 2017 08:14 - CONCLUSION: No acute abdominal abnormality is identified. Angelo Allen MD Wrist X-Ray 02/06/17 0000 Signed Impressions: Service Date/Time: Monday, February 06, 2017 12:50 - CONCLUSION: Minimally displaced distal radius and ulnar fractures. Armando Dodd MD Lumbar Puncture Fluoroscopy 02/01/17 Signed Impressions: Service Date/Time: January 09:35 - CONCLUSION: Uncomplicated fluoroscopically guided lumbar puncture. CSF was clear. Nabeel Peralta MD Head Magnetic Resonance Angiography 01/27/17 Signed Impressions: Service Date/Time: Friday, January 27, 2017 10:33 - CONCLUSION: No intracranial vascular abnormality is identified. There is no aneurysm visualized. Angelo Allen MD IVC Filter Placement X-Ray 01/25/17 Signed Impressions: Service Date/Time: January 10:29 - CONCLUSION: Uncomplicated inferior vena cava filter placement as above. Yung Fowler MD Thoracic Spine MRI 01/24/17 Signed Impressions: Service Date/Time: Tuesday, January 24, 2017 22:29 - CONCLUSION: 1. Mild degenerative spondylosis most prominently at T11-L1 with slight effacement of the anterior thecal sac and left lateral recess. No significant neural foraminal stenosis. 2. No acute fracture. Juan Bhakta MD Renal Ultrasound 01/23/17 Signed Impressions: Service Date/Time: Monday, January 23, 2017 08:53 - CONCLUSION: 1. Evidence of chronic parenchymal disease of both kidneys. No obstructive uropathy or other acute abnormality demonstrated. 2. Trace ascites, nonspecific. Angelo Garrido MD Lumbar Spine MRI 01/23/17 Signed Impressions: Service Date/Time: Monday, January 23, 2017 17:01 - CONCLUSION: 1. At L4-5 is a broad-based disc protrusion with severe central canal and lateral recess stenosis and flattening of the exiting right L4 nerve root. 2. L5-S1 there is a disc protrusion and moderate stenosis with flattening of the exiting L5 nerve roots bilaterally. 3. At L3-4 there is a moderate to severe central stenosis and lateral recess stenosis with mild foraminal stenosis. 4. No acute fracture or spondylolisthesis. Trace Holloway MD Lower Extremity Ultrasound 01/23/17 Signed Impressions: Service Date/Time: Monday, January 23, 2017 09:53 - CONCLUSION: Bilateral focal lower extremity DVT involving the posterior tibial veins. Angelo Garrido MD Cervical Spine MRI 01/23/17 Signed Impressions: Service Date/Time: Monday, January 23, 2017 17:01 - CONCLUSION: 1. Multilevel cervical spine degenerative changes as above. 2. Mild degrees of spinal stenosis at C3/C4-C6/C7. No cord compression or cord signal abnormality. 3. Age indeterminate left paracentral/foraminal disc protrusion at C6/C7. 4. Multilevel foraminal stenosis, most severe on the left at C6/C7. Please see individual levels above. 5. No fracture or subluxation of the cervical spine. Angelo Garrido MD Brain MRI 01/23/17 Signed Impressions: Service Date/Time: Monday, January 23, 2017 17:01 - CONCLUSION: 1. No acute stroke or other acute intracranial abnormality demonstrated. 2. Moderate severity chronic white matter changes, nonspecific but most likely related to chronic small vessel disease. 3. Few scattered tiny lacunar infarcts of the brainstem. 4. Given the findings are not entirely specific, clinical evaluation for possible multiple sclerosis recommended. Angelo Garrido MD Knee X-Ray 01/22/172053 Signed Impressions: Service Date/Time: Sunday, January 22, 2017 21:17 - CONCLUSION: 1. Evidence of moderate to large joint effusion. 2. No acute fracture or malalignment. 3. Mild 3 compartment osteoarthritic change. Benjamin Person MD Hip and Pelvis X-Ray 01/22/172053 Signed Impressions: Service Date/Time: Sunday, January 22, 2017 21:10 - CONCLUSION: 1. Mild to moderate degenerative change of both hips with no acute fracture or malalignment. There is flattening and remodeling of the right humeral head. Benjamin Person MD Physical Exam GENERAL:Awaken and following, comfortable on CPAP SKIN: Warm and dry. No generalized rash. Has ecchymoses in UE EYES: [place] conjunctiva. No petechia or hemorrhage. Pupils equal, round and reactive to light. No scleral icterus. EARS, NOSE AND THROAT: Nose without bleeding or purulent nasal discharge. He is orally intubated NECK: Trachea midline. Supple and no meningeal signs CARDIOVASCULAR: Regular rate and rhythm. Soft heart sounds. No murmurs, rubs or gallops heard RESPIRATORY: Coarse BS bilaterally, decreased on L base ABDOMEN: Soft, nondistended, bowel sounds present and normoactive, no reaction to palpation. No guarding. EXTREMITIES: No clubbing, cyanosis. Both hands less edematous. Has evidence of multiple gouty tophi in both hands and feet. LUE - wound vac in place NEUROLOGICAL: Sedated PSYCHIATRIC: Unable to assess LINE: Line with no evidence of infection : Sloan in place, urine looks clear Assessment & Plan Remarks IMPRESSION New shock, sepsis, ?aspiration - better MSSA sepsis, with shock, due to suppurative thrombophlebitis LUE, S/P I and D and excision of portion of cephalic vein - off pressors Respiratory failure, CXR now with infiltrates - sputum with MSSA - extubated Recurrent respiratory failure, ?aspiration Recent Rx 7 days high dose solumedrol for transverse myelitis Wu LE DVT has IVC filter placed 01/25 - ?hypercoagulable state Chronic kidney disease Known DM, HTN Gouty tophi both hands and feet Diarrhea, C diff negative RECOMMENDATION Continue IV Oxacillin - plan 6 weeks for Rx endovascular infection - anticipated end date Mar 25 Continue Zosyn Continue Zyvox for MRSA coverage Continue Diflucan Follow new C/S and deescalate Abx once C/S finalized Monitor progress Will need 6 weeks IV Abx from date of last (+) BC for MSSA bacteremia Weaning per CCM D/W Irene Vogel MD Feb 21, 2017 13:29
[2017-02-21] MEDS: HYDROCORTISONE SOD SUCCINATE 100 MG VIAL IV SCH ×2 (13:40→21:54)
[2017-02-21] MEDS: FLUCONAZOLE 400 MG PREMIX BAG 200 ML IV SCH (13:44)
--- NOTE | 2017-02-21 14:24 | HHI.GIFU ---
Subjective Remarks Resting in bed. Lightly sedated on CPAP. Denies abdominal pain. Does not appear to be tender on exam. 4 bowel movements documented (Nena Driver) Objective Vitals I&O Vital Signs Date Time Temp Pulse Resp B/P (MAP) Pulse Ox O2 Delivery O2 Flow Rate FiO2 02/21/17 13:17 100 40 02/21/17 13:17 40 02/21/17 12:00 66 02/21/17 12:00 98.0 66 17 100 110/54 (72) 02/21/17 12:00 50 02/21/17 10:00 66 02/21/17 09:29 100 40 02/21/17 08:00 97.4 60 17 100 106/56 (73) 02/21/17 08:00 60 02/21/17 08:00 50 02/21/17 06:00 59 02/21/17 04:00 50 02/21/17 04:00 97.5 60 18 100 104/52 (69) 02/21/17 04:00 60 02/21/17 03:10 100 50 02/21/17 02:00 58 02/21/17 00:32 100 60 02/21/17 00:00 58 02/21/17 00:00 60 02/21/17 00:00 97.5 58 15 100 126/66 (86) 02/20/17 22:00 60 02/20/17 20:36 100 60 02/20/17 20:00 60 02/20/17 20:00 67 02/20/17 20:00 97.5 67 15 100 110/57 (74) 02/20/17 18:00 71 02/20/17 17:52 68 119/70 02/20/17 16:00 85 02/20/17 16:00 98.4 85 20 100 105/61 (76) 02/20/17 16:00 60 02/20/17 15:59 100 60 I/O 02/20/17 02/20/17 02/20/17 02/21/17 02/21/17 02/21/17 07:00 15:00 23:00 07:00 15:00 23:00 Intake Total 200 ml 320 ml 1700 ml 1094 ml Output Total 550 ml 700 ml 675 ml Balance -350 ml 320 ml 1000 ml 419 ml Intake Oral 0 ml IV Total 200 ml 320 ml 1700 ml 1094 ml Output Urine Total 550 ml 700 ml 650 ml Drainage Total 25 ml Bladder Scan Volume Amount 408 ml # Bowel Movements 2 3 1 Laboratory Laboratory Tests Test 02/21/17 04:00 White Blood Count 21.0 Red Blood Count 3.22 Hemoglobin 8.7 Hematocrit 26.9 Mean Corpuscular Volume 83.7 Mean Corpuscular Hemoglobin 27.2 Mean Corpuscular Hemoglobin Concent 32.5 Red Cell Distribution Width 19.2 Platelet Count 210 Mean Platelet Volume 8.2 Neutrophils (%) (Auto) 81.1 Lymphocytes (%) (Auto) 8.1 Monocytes (%) (Auto) 8.3 Eosinophils (%) (Auto) 2.0 Basophils (%) (Auto) 0.5 Neutrophils # (Auto) 17.0 Lymphocytes # (Auto) 1.7 Monocytes # (Auto) 1.7 Eosinophils # (Auto) 0.4 Basophils # (Auto) 0.1 CBC Comment AUTO DIFF Differential Total Cells Counted 100 Neutrophils % (Manual) 77 Band Neutrophils % 9 Lymphocytes % 8 Monocytes % 1 Eosinophils % 2 Neutrophils # (Manual) 18.7 Metamyelocytes 2 Myelocytes 1 Differential Comment FINAL DIFF MANUAL Blood Urea Nitrogen 18 Creatinine 1.57 Random Glucose 186 Total Protein 4.1 Calcium Level 7.2 Sodium Level 140 Potassium Level 3.3 Chloride Level 107 Carbon Dioxide Level 24.2 Anion Gap 9 Estimat Glomerular Filtration Rate 45 Protein Corrected Calcium 8.9 Date/Time Source Procedure Growth Status 02/20/17 12:35 Blood Peripheral Aerobic Blood Culture - Preliminary NO GROWTH IN 1 DAY Resulted 02/20/17 12:35 Blood Peripheral Anaerobic Blood Culture - Preliminary NO GROWTH IN 1 DAY Resulted 02/01/17 09:55 Cerebral Spinal Fluid Lumbar Puncture Fungal Smear - Final NO FUNGAL ELEMENTS SEEN. Resulted 02/01/17 09:55 Cerebral Spinal Fluid Lumbar Puncture Fungal Culture - Preliminary NO GROWTH IN 2 WEEKS Resulted 02/17/17 05:55 Stool Stool Stool Occult Blood (GREGORY) - Final HEMOCCULT POSITIVE Complete 02/20/17 12:55 Sputum Endotracheal Gram Stain - Final Resulted 02/20/17 12:55 Sputum Endotracheal Sputum Culture - Preliminary MODERATE GROWTH NORMAL RESPIRATORY FL... Resulted 02/20/17 12:10 Urine Clean Catch Urine Culture - Preliminary NO GROWTH IN 24 HOURS. Resulted 02/11/17 09:10 Abscess Arm Acid Fast Stain - Final NO ACID FAST BACILLI SEEN Resulted 02/11/17 09:10 Abscess Arm Mycobacterial Culture - Preliminary NO GROWTH IN 1 WEEK Resulted Imaging Last Impressions Chest X-Ray 02/21/17 0600 Signed Impressions: Service Date/Time: Tuesday, February 21, 2017 04:12 - CONCLUSION: Repositioned endotracheal tube, currently about 4 cm above the roxanna. Otherwise no change. Mild left base consolidation again seen. Angelo Garrido MD Abdomen/Pelvis CT 02/19/17 0000 Signed Impressions: Service Date/Time: Sunday, February 19, 2017 19:09 - CONCLUSION: 1. Areas of calcification seen in the right renal collecting system, right renal pelvis, and proximal right ureter. These appear to layer and be dependent suggesting likely to represent smaller areas of milk of calcium or small stones. There is mild dilatation of the right renal collecting system and right ureter. A definite obstructing stone at this time is not seen. 2. A small amount of air within the urinary bladder. This should be correlated with any recent catheterization. 3. Mild bilateral pleural effusions with accompanying atelectasis or consolidation at the left base. The consolidation was present previously. 4. Prominent degenerative change in the lumbar spine and at the hip joints bilaterally. Angelo Manzo MD Abdomen X-Ray 02/18/17 0000 Signed Impressions: Service Date/Time: Saturday, February 18, 2017 14:35 - CONCLUSION: Normal examination. Device overlies left upper abdomen. Otherwise unremarkable study. Duy Genao MD Upper Extremity Ultrasound 02/10/17 0000 Signed Impressions: Service Date/Time: Friday, February 10, 2017 18:46 - CONCLUSION: Occlusive thrombus in the cephalic and basilic veins. Benjamin Person MD Lung Scan-V Nuclear Medicine 02/10/17 0000 Signed Impressions: Service Date/Time: Friday, February 10, 2017 22:17 - CONCLUSION: Low probability pulmonary embolism. Candido Patton MD Head CT 02/10/17 0000 Signed Impressions: Service Date/Time: Friday, February 10, 2017 23:51 - CONCLUSION: Negative noncontrast CT brain. Candido Patton MD Chest CT 02/10/17 0000 Signed Impressions: Service Date/Time: Friday, February 10, 2017 23:56 - CONCLUSION: Left lower lobe collapse with consolidation. Patchy infiltrates the medial right lower lung. Candido Patton MD Wrist X-Ray 02/06/17 0000 Signed Impressions: Service Date/Time: Monday, February 06, 2017 12:50 - CONCLUSION: Minimally displaced distal radius and ulnar fractures. Armando Dodd MD Lumbar Puncture Fluoroscopy 02/01/17 0000 Signed Impressions: Service Date/Time: January 09:35 - CONCLUSION: Uncomplicated fluoroscopically guided lumbar puncture. CSF was clear. Nabeel Peralta MD Head Magnetic Resonance Angiography 01/27/17 0000 Signed Impressions: Service Date/Time: Friday, January 27, 2017 10:33 - CONCLUSION: No intracranial vascular abnormality is identified. There is no aneurysm visualized. Angelo Allen MD IVC Filter Placement X-Ray 01/25/17 0000 Signed Impressions: Service Date/Time: January 10:29 - CONCLUSION: Uncomplicated inferior vena cava filter placement as above. Yung Fowler MD Thoracic Spine MRI 01/24/17 0000 Signed Impressions: Service Date/Time: Tuesday, January 24, 2017 22:29 - CONCLUSION: 1. Mild degenerative spondylosis most prominently at T11-L1 with slight effacement of the anterior thecal sac and left lateral recess. No significant neural foraminal stenosis. 2. No acute fracture. Juan Bhakta MD Renal Ultrasound 01/23/17 0000 Signed Impressions: Service Date/Time: Monday, January 23, 2017 08:53 - CONCLUSION: 1. Evidence of chronic parenchymal disease of both kidneys. No obstructive uropathy or other acute abnormality demonstrated. 2. Trace ascites, nonspecific. Angelo Garrido MD Lumbar Spine MRI 01/23/17 0000 Signed Impressions: Service Date/Time: Monday, January 23, 2017 17:01 - CONCLUSION: 1. At L4-5 is a broad-based disc protrusion with severe central canal and lateral recess stenosis and flattening of the exiting right L4 nerve root. 2. L5-S1 there is a disc protrusion and moderate stenosis with flattening of the exiting L5 nerve roots bilaterally. 3. At L3-4 there is a moderate to severe central stenosis and lateral recess stenosis with mild foraminal stenosis. 4. No acute fracture or spondylolisthesis. Trace Holloway MD Lower Extremity Ultrasound 01/23/17 Signed Impressions: Service Date/Time: Monday, January 23, 2017 09:53 - CONCLUSION: Bilateral focal lower extremity DVT involving the posterior tibial veins. Angelo Garrido MD Cervical Spine MRI 01/23/17 Signed Impressions: Service Date/Time: Monday, January 23, 2017 17:01 - CONCLUSION: 1. Multilevel cervical spine degenerative changes as above. 2. Mild degrees of spinal stenosis at C3/C4-C6/C7. No cord compression or cord signal abnormality. 3. Age indeterminate left paracentral/foraminal disc protrusion at C6/C7. 4. Multilevel foraminal stenosis, most severe on the left at C6/C7. Please see individual levels above. 5. No fracture or subluxation of the cervical spine. Angelo Garrido MD Brain MRI 01/23/17 Signed Impressions: Service Date/Time: Monday, January 23, 2017 17:01 - CONCLUSION: 1. No acute stroke or other acute intracranial abnormality demonstrated. 2. Moderate severity chronic white matter changes, nonspecific but most likely related to chronic small vessel disease. 3. Few scattered tiny lacunar infarcts of the brainstem. 4. Given the findings are not entirely specific, clinical evaluation for possible multiple sclerosis recommended. Angelo Garrido MD Knee X-Ray 01/22/[id number] Signed Impressions: Service Date/Time: Sunday, January 22, 2017 21:17 - CONCLUSION: 1. Evidence of moderate to large joint effusion. 2. No acute fracture or malalignment. 3. Mild 3 compartment osteoarthritic change. Benjamin Person MD Hip and Pelvis X-Ray [id number]/22/[id number] Signed Impressions: Service Date/Time: Sunday, January 22, 2017 21:10 - CONCLUSION: 1. Mild to moderate degenerative change of both hips with no acute fracture or malalignment. There is flattening and remodeling of the right humeral head. Benjamin Person MD Physical Exam HEENT: Normocephalic; atraumatic; no jaundice. CHEST: Resp even/unlabored, OETT to cpap. Course breath sounds CARDIAC: RRR ABDOMEN: Soft, nondistended, nontender, no hepatosplenomegaly; bowel sounds are present in all four quadrants. EXTREMITIES: Generalized edema. Edema LUE, wound vac COTTON CHOPPER: Lethargic, oriented times three. (Nena Driver) Assessment and Plan Plan ASSESSMENT: - Anemia, Hemoccult positive stools. Never had EGD/Colonoscopy. Has bilateral DVTs, requiring anticoagulation, Xarelto- now on hold. On Lovenox. Pt is now intubated. He is more stable today. Will plan for egd/colonoscopy in am prior to extubation. Did have drop in hgb overnight,although no obvious blood loss. - Abdominal pain. C/O worsening abdominal pain and is moaning in bed. However , when areas of abdomen palpated, he denies tenderness. CT abdomen and pelvis without iv contrast (02/19/17)---> areas of calcification seen in the right renal collecting system, right renal pelvis, adn proximal ureter. these appear to layer and be dependent suggesting likely to represent smaller areas of milk of calcium or small stones. There is mild dilatation of th eright renal collecting system and right ureter. A definite obstructing stone at this time is not seen. A small amount of air within hte urinary bladder. This should be correlated with any recent catheterization. Mild bilateral pleural effusions with accompanying atelectasis or consolidation at the left base. the consolidation was present previously. Prominent degenerative change in the lumbar spine and at the hip joints bilaterally. Improved, although lightly sedated. EGD/Colonoscopy in am. - Nausea, Inability to tolerate po. KUB (02/18/17)---> Normal examination. Device overlies left abdomen. Otherwise unremarkable study. EGD/Colonoscopy in am - Diarrhea. On abx. CDiff negative. EGD/Colon in am. - Respiratory Insufficiency/Hypoxia. S/P intubation, now on cpap - DVT LE, bilateral. Xarelto on hold, lovenox - Transverse myelitis, per attending. Zosyn, diflucan, zyvox, per ID - LUE Abscess. S/P I&D with excision of left cephalic vein segment. Wound vac. - BREEZY, improved. Creat 1.57. Per renal. - HTN, DM, per attending. PLAN: - Plan for egd/colonoscopy in am prior to extubation - Obtain consents - NPO after MN - Golytely prep - Hold lovenox after mn - Monitor HH - Transfuse as necessary - Supportive care - Further recommendations to follow based on clinical status - Patient seen and examined by Dr. Shepard and myself and this note is written on her behalf. (Nena Driver) Nena Driver Feb 21, 2017 14:24 Jerica Shepard MD Feb 21, 2017 19:07
[2017-02-21] MEDS ORDERED: fentaNYL DRIP 250 ML IV SCH (14:45)
--- NOTE | 2017-02-21 14:45 | HHI.NPPN ---
Subjective History of Present Illness 61-year-old with history of urinary stone Additional Remarks pt on vent Review of Systems General Constitutional: Fatigue Objective Data Data Vital Signs Date Time Temp Pulse Resp B/P (MAP) Pulse Ox O2 Delivery O2 Flow Rate FiO2 02/21/17 14:00 66 02/21/17 13:17 100 40 02/21/17 13:17 40 02/21/17 12:00 66 02/21/17 12:00 98.0 66 17 100 110/54 (72) 02/21/17 12:00 50 02/21/17 10:00 66 02/21/17 09:29 100 40 02/21/17 08:00 97.4 60 17 100 106/56 (73) 02/21/17 08:00 60 02/21/17 08:00 50 02/21/17 06:00 59 02/21/17 04:00 50 02/21/17 04:00 97.5 60 18 100 104/52 (69) 02/21/17 04:00 60 02/21/17 03:10 100 50 02/21/17 02:00 58 02/21/17 00:32 100 60 02/21/17 00:00 58 02/21/17 00:00 60 02/21/17 00:00 97.5 58 15 100 126/66 (86) 02/20/17 22:00 60 02/20/17 20:36 100 60 02/20/17 20:00 60 02/20/17 20:00 67 02/20/17 20:00 97.5 67 15 100 110/57 (74) 02/20/17 18:00 71 02/20/17 17:52 68 119/70 02/20/17 16:00 85 02/20/17 16:00 98.4 85 20 100 105/61 (76) 02/20/17 16:00 60 02/20/17 15:59 100 60 -: 02/21/17 0400 02/21/17 0400 Physical Exam General Appearance: Pale Neck Neck Exam: Neck Supple Pulmonary Resp Exam: Crackles, Rhonchi, Decreased Bases Cardiology CV Exam: Regular, Normal Sinus Rhythm Gastrointestinal/Abdomen GI Exam: Soft, Non-Tender, Bowel Sounds Present Extremeties Extremities Exam: Moderate Edema Neurologic Neuro Exam: Sedated Assessment/Plan Problem List: (1) Acute renal failure ICD Codes: N17.9 - Acute kidney failure, unspecified Status: Acute Plan: Patient developed Hypotension,sepsis staph aureus respiratory failure and increase WBC. Had aspiration pneumonia, developed sepsis with ARF again creatinine declined slightly post hydration has another event Septic given fluids for now stabilize BP and I will follow renal functions stable UOP 1.3 L follow BMP Extubation soon (2) CKD (chronic kidney disease) stage 3, GFR 30-59 ml/min ICD Codes: N18.3 - Chronic kidney disease, stage 3 (moderate) Status: Chronic Plan: Ultrasound revealed chronic kidney disease there is no kidney stones (3) Diabetes ICD Codes: E11.9 - Type 2 diabetes mellitus without complications Plan: Continue to monitor (4) Distal end of ulna fracture, closed ICD Codes: S52.609A - Unspecified fracture of lower end of unspecified ulna, initial encounter for closed fracture Status: Acute Plan: Orthopedic is following Problem Qualifiers (1) Acute renal failure: Qualified Codes: N17.9 - Acute kidney failure, unspecified Laura Liao MD Feb 21, 2017 14:45
[2017-02-21] MEDS ORDERED: PEG (High)/E-LYTE SOLN 4000 ML BTL PO ONE (16:00)
[2017-02-21] MEDS: DEXTROSE 10% INJ 1,000 ML IV SCH (17:59)
[2017-02-21] MEDS: ATORVASTATIN 10 MG TAB PO SCH (21:53)
[2017-02-21] MEDS: FAMOTIDINE 20 MG/2 ML VIAL IV PUSH SCH (21:54)
[2017-02-22] VITALS (17 sets, daily range): BP systolic 100–142; BP diastolic 52–72; PULSE 58–84; RESP 15–20; TEMP 96.6–99.4; O2SAT 99–100
[2017-02-22] MEDS: ENOXAPARIN SODIUM 100 MG/ML SYRINGE SQ SCH
[2017-02-22] MEDS: PIPERACIL-TAZO 4.5 GM PREMIX 100 ML IV SCH ×4 (01:40→20:26)
[2017-02-22] MEDS: PROPOFOL 1000 MG/100 ML INJ 100 ML IV SCH ×6 (02:58→23:14)
[2017-02-22] MEDS: RESP: ALBUTEROL 2.5 MG/IPRATROPIUM 0.5 MG NEB (SCH) INH ×4 (03:55→20:21)
[2017-02-22] MEDS: LINEZOLID 600 MG PREMIX 300 ML IV SCH ×2 (04:40→16:36)
[2017-02-22] MEDS: INSULIN NovoLIN REGULAR SUPPLEMENTAL SCALE SQ SCH ×6 (04:43→20:00)
[2017-02-22] MEDS: HYDROCORTISONE SOD SUCCINATE 100 MG VIAL IV SCH ×3 (05:21→20:26)
[2017-02-22] MEDS: POTASSIUM PHOSPHATE/SODIUM PHOSPHATE 250 MG TAB PO SCH ×3 (05:21→20:27)
[2017-02-22 05:26] LABS: AUTOMATED NEUTROPHIL # 9.7 TH/MM3 (1.8-7.7); BASOPHIL # 0.1 TH/MM3 (0-0.2); BASOPHIL % 1.1 % (0.0-2.0); HEMATOCRIT 25.5 % (39.0-51.0); LYMPH % 3.6 % (9.0-44.0); LYMPHOCYTE # 0.4 TH/MM3 (1.0-4.8); MEAN CELL VOLUME 82.6 FL (80.0-100.0); MEAN CORPUSCULAR HEMOGLOBIN 27.4 PG (27.0-34.0); MEAN CORPUSCULAR HGB CONC 33.2 % (32.0-36.0); MONO % 2.5 % (0.0-8.0); NEUT % 92.8 % (16.0-70.0); PLATELET COUNT 158 TH/MM3 (150-450); RED BLOOD COUNT 3.08 MIL/MM3 (4.50-5.90); RED CELL DISTRIBUTION WIDTH 19.1 % (11.6-17.2); WHITE BLOOD COUNT 10.5 TH/MM3 (4.0-11.0)
[2017-02-22 05:33] LABS: HEMO FLAGS AUTO DIFF
[2017-02-22 06:09] LABS: BICARBONATE 21.9 MEQ/L (21.0-32.0)
[2017-02-22 06:23] LABS: CALCIUM-PROTEIN CORRECTED 8.4 MG/DL (8.5-10.1)
[2017-02-22] MEDS: POTASSIUM CHLOR 40 MEQ PREMIX 100 ML IV PRN ×3 (07:32→23:14)
[2017-02-22] MEDS: CHLORHEXIDINE 0.12% (ORAL KIT) 15 ML CUP MT SCH ×2 (08:00→20:28)
[2017-02-22 08:44] LABS: BANDS 3 % (0-6); METAMYELOCYTES 1 % (0-1); MYELOCYTES 1 % (0-0); NEUTROPHIL # MANUAL DIFF 9.7 TH/MM3 (1.8-7.7); PLATELET ESTIMATE SMEAR NORMAL (NORMAL); PLATELET MORPHOLOGY NORMAL (NORMAL); POLYS (SEG NEUTROPHILS) 87 % (16-70); WBC DIFF SAMPLE 100
[2017-02-22 08:45] LABS: SCAN/DIFF FINAL DIFF MANUAL
[2017-02-22] MEDS: DOCUSATE SODIUM 50 MG/SENNA 8.6 MG TAB PO SCH ×2 (09:00→20:27)
[2017-02-22] MEDS: LACTOBACILLUS ACIDOPHILUS TAB PO SCH ×3 (09:32→18:00)
[2017-02-22] MEDS: TAMSULOSIN HCL 0.4 MG CAP PO SCH ×2 (09:34→20:27)
[2017-02-22] MEDS: SODIUM CHLORIDE 0.9% FLUSH 10 ML FLUSH IV FLUSH SCH ×2 (09:35→20:29)
[2017-02-22] MEDS: VASOPRESSIN INJ 40 UNITS in DEXTROSE 5% IN WATER 100ML INJ 98 ML IV SCH ×2 (10:22)
[2017-02-22] MEDS: DEXTROSE 10% INJ 1,000 ML IV SCH (12:21)
--- NOTE | 2017-02-22 12:28 | HHI.CCPN ---
Subjective Remarks/Hospital Course Date of admission: 01/22 Date of critical care medicine consult 02/10 due to acute hypoxemic respiratory failure requiring emergent intubation 62-year-old male with a past medical history of hypertension, hyperlipidemia, diabetes mellitus, gout, uric acid kidney stones, kidney disease of unknown stage who originally presented to [facility] emergency department on 01/22 after a fall in which he sustained a right distal ulna fracture. He had been experiencing a gradual primarily lower extremity weakness as well as upper extremity weakness that was progressive. Neurology consult was obtained. MRI revealed no acute stroke. He had multifocal white matter changes. Tiny lacunar infarcts of the brainstem. Lumbar MRI report states L4-L5 disc protrusion with cetnral canal stenosis. Dr. Blackwell evaluated and states no cord compression on MRI C/T spine and recommended nonoperative management. Symptoms were felt to be consistent with transverse myelitis and he underwent Solumedrol 250 mg IV q6 hours 01/27-02/02. He also was found to have occlusive thrombus in the bilateral posterior tibial veins. Heparin was being avoided because he had traumatic lumbar puncture on 01/26 and 02/01. IVC filter was placed 01/25. He was undergoing physical therapy, reportedly making some improvements with plan to eventually discharged home with his son (max assist standing, and bed to chair per PT note). Apparently he had some vomiting the evening of 02/09 and additional vomiting on 02/10. He had a fever 102.8 on 02/09. Last recorded bowel movement was 02/03. Tonight he had acute onset of severe hypoxemia and respiratory distress. [facility] called and he was brought emergently to [facility] where his sats were 64% on 100% nonrebreather with mean arterial pressure 44. He was emergently intubated, CVL and art line placed. He is in septic shock. SUBJ: 02/11: Patient remains intubated sedated, critically ill. FiO2 reduced to 80% after increasing PEEP to 12. In severe septic shock Levophed at 16 mcg/m, vasopressin at 0.04 international units. D/W vascular surgery Dr. Enciso. He performed bedside Left upper extremity incision and debridement and excision of septic cephalic vein. 02/12: Remains intubated sedated profoundly septic, in shock on vasopressin and 7 mcg/min Levophed. FiO2 has improved to 45%, WBC count remains elevated with 20 ,000 white count significant left shift. Slight improvement in creatinine 2.9 urine output 750 ml 24 hours. 2-D echo shows LV ejection fraction 20-25%, no vegetation reported. Blood cultures 4 staph aureus. Wound culture pending 02/13: Remains critically ill but stable to improving. WBC count is down to 16, creatinine improving to 2.36. Off all pressors. Urine output also improving. 1.5L in 24 hours 02/14: Extubated 02/13. Tolerating well. WBC now down to 12.8. Creat improving 2.3 to 2. UO 3.4L. remains off all pressors. Was started on Precedex yesterday night for agitation, currently on 0.5 g per KG per hour. Chest x-ray shows left more than right air space disease 02/20/17 Re consult: 62-year-old male who was originally admitted for lower extremity weakness and found to have what was thought to be possible transverse myelitis. His hospital course his included a healthcare associated pneumonia, septic thrombophlebitis, DVT. He was most recently in the hospital floor where he had significant nausea and vomiting and diarrhea. His C. difficile test was recently negative. However, he has experienced worsening acute on chronic renal failure, hypotension, tachycardia, and severe hypoxemia. He did have a bout of vomiting earlier today, and his hospitalist attending suspects that he may have aspirated. He arrives by rapid response to the ICU with a nonrebreather in place in severe respiratory distress with SPO2 of 85%. I emergently intubate the patient, see separate procedure note for details. At this point the patient was hypotensive and tachycardic. He does have a history of an EF of 20%, however clinically he appears in florid septic shock. I placed central line and arterial line started vasopressors and gentle IV fluid resuscitation with 1 L of LR. Patient today was empirically broadened to vancomycin and Zosyn from his oxacillin which was initially treating MSSA bacteremia. He is recultured. Critical-care medicine is consulted to evaluate and manage his worsening multiorgan system failure and decompensated septic shock SUBJ 02/21: Patient remains intubated sedated. Becomes anxious tachypnea on sedation lightening. Chest x-ray shows mild left lower lobe infiltrate. WBC count is slightly improved today from 23.2 t0 21. C Diff negative. UO adequate, creat slightly worsening. 1.57 today 02/22: Remains intubated sedated tolerated CPAP yesterday, plan is for EGD/ Colonscopy. WBC count back to normal. UO adequate. Creat stable Objective Vital Signs Date Time Temp Pulse Resp B/P (MAP) Pulse Ox O2 Delivery O2 Flow Rate FiO2 02/22/17 11:51 99 40 02/22/17 10:22 81 104/54 02/22/17 04:00 96.6 15 02/21/17 19:00 Mechanical Ventilator Intake and Output 02/22/17 02/22/17 02/23/17 08:00 16:00 00:00 Intake Total 1960 ml Output Total 2400 ml Balance -440 ml Result Diagram: 02/22/17 0515 02/22/17 0515 Other Results Microbiology Date/Time Source Procedure Growth Status 02/20/17 12:55 Sputum Endotracheal Gram Stain - Final Complete 02/20/17 12:55 Sputum Endotracheal Sputum Culture - Final HEAVY GROWTH NORMAL RESPIRATORY EARL Complete 02/20/17 12:10 Urine Clean Catch Urine Culture - Final NO GROWTH IN 48 HOURS. Complete Imaging Last Impressions Chest X-Ray 02/20/17 0000 Signed Impressions: Service Date/Time: Monday, February 20, 2017 12:46 - CONCLUSION: 1. ETT approximately 1.7 cm above the roxanna. Left subclavian central line in proximal SVC. 2. No pneumothorax. 3. Stable trace right pleural effusion and small left pleural effusion with left lower lobe consolidation. Juan Bhakta MD Abdomen/Pelvis CT 02/19/17 0000 Signed Impressions: Service Date/Time: Sunday, February 19, 2017 19:09 - CONCLUSION: 1. Areas of calcification seen in the right renal collecting system, right renal pelvis, and proximal right ureter. These appear to layer and be dependent suggesting likely to represent smaller areas of milk of calcium or small stones. There is mild dilatation of the right renal collecting system and right ureter. A definite obstructing stone at this time is not seen. 2. A small amount of air within the urinary bladder. This should be correlated with any recent catheterization. 3. Mild bilateral pleural effusions with accompanying atelectasis or consolidation at the left base. The consolidation was present previously. 4. Prominent degenerative change in the lumbar spine and at the hip joints bilaterally. Angelo Manzo MD Abdomen X-Ray 02/18/17 Signed Impressions: Service Date/Time: Saturday, February 18, 2017 14:35 - CONCLUSION: Normal examination. Device overlies left upper abdomen. Otherwise unremarkable study. Duy Genao MD Upper Extremity Ultrasound 02/10/17 Signed Impressions: Service Date/Time: Friday, February 10, 2017 18:46 - CONCLUSION: Occlusive thrombus in the cephalic and basilic veins. Benjamin Person MD Lung Scan-V Nuclear Medicine 02/10/17 Signed Impressions: Service Date/Time: Friday, February 10, 2017 22:17 - CONCLUSION: Low probability pulmonary embolism. Candido Patton MD Head CT 02/10/17 Signed Impressions: Service Date/Time: Friday, February 10, 2017 23:51 - CONCLUSION: Negative noncontrast CT brain. Candido Patton MD Chest CT 02/10/17 Signed Impressions: Service Date/Time: Friday, February 10, 2017 23:56 - CONCLUSION: Left lower lobe collapse with consolidation. Patchy infiltrates the medial right lower lung. Candido Patton MD Wrist X-Ray 02/06/17 Signed Impressions: Service Date/Time: Monday, February 06, 2017 12:50 - CONCLUSION: Minimally displaced distal radius and ulnar fractures. Armando Dodd MD Lumbar Puncture Fluoroscopy 02/01/17 Signed Impressions: Service Date/Time: January 09:35 - CONCLUSION: Uncomplicated fluoroscopically guided lumbar puncture. CSF was clear. Nabeel Peralta MD Head Magnetic Resonance Angiography 01/27/17 Signed Impressions: Service Date/Time: Friday, January 27, 2017 10:33 - CONCLUSION: No intracranial vascular abnormality is identified. There is no aneurysm visualized. Angelo Allen MD IVC Filter Placement X-Ray 01/25/17 Signed Impressions: Service Date/Time: January 10:29 - CONCLUSION: Uncomplicated inferior vena cava filter placement as above. Yung Fowler MD Thoracic Spine MRI 01/24/17 Signed Impressions: Service Date/Time: Tuesday, January 24, 2017 22:29 - CONCLUSION: 1. Mild degenerative spondylosis most prominently at T11-L1 with slight effacement of the anterior thecal sac and left lateral recess. No significant neural foraminal stenosis. 2. No acute fracture. Juan Bhakta MD Renal Ultrasound 01/23/17 Signed Impressions: Service Date/Time: Monday, January 23, 2017 08:53 - CONCLUSION: 1. Evidence of chronic parenchymal disease of both kidneys. No obstructive uropathy or other acute abnormality demonstrated. 2. Trace ascites, nonspecific. Angelo Garrido MD Lumbar Spine MRI 01/23/17 Signed Impressions: Service Date/Time: Monday, January 23, 2017 17:01 - CONCLUSION: 1. At L4-5 is a broad-based disc protrusion with severe central canal and lateral recess stenosis and flattening of the exiting right L4 nerve root. 2. L5-S1 there is a disc protrusion and moderate stenosis with flattening of the exiting L5 nerve roots bilaterally. 3. At L3-4 there is a moderate to severe central stenosis and lateral recess stenosis with mild foraminal stenosis. 4. No acute fracture or spondylolisthesis. Trace Holloway MD Lower Extremity Ultrasound 01/23/17 Signed Impressions: Service Date/Time: Monday, January 23, 2017 09:53 - CONCLUSION: Bilateral focal lower extremity DVT involving the posterior tibial veins. Angelo Garrido MD Cervical Spine MRI 01/23/17 Signed Impressions: Service Date/Time: Monday, January 23, 2017 17:01 - CONCLUSION: 1. Multilevel cervical spine degenerative changes as above. 2. Mild degrees of spinal stenosis at C3/C4-C6/C7. No cord compression or cord signal abnormality. 3. Age indeterminate left paracentral/foraminal disc protrusion at C6/C7. 4. Multilevel foraminal stenosis, most severe on the left at C6/C7. Please see individual levels above. 5. No fracture or subluxation of the cervical spine. Angelo Garrido MD Brain MRI 01/23/17 Signed Impressions: Service Date/Time: Monday, January 23, 2017 17:01 - CONCLUSION: 1. No acute stroke or other acute intracranial abnormality demonstrated. 2. Moderate severity chronic white matter changes, nonspecific but most likely related to chronic small vessel disease. 3. Few scattered tiny lacunar infarcts of the brainstem. 4. Given the findings are not entirely specific, clinical evaluation for possible multiple sclerosis recommended. Angelo Garrido MD Knee X-Ray 01/22/172053 Signed Impressions: Service Date/Time: Sunday, January 22, 2017 21:17 - CONCLUSION: 1. Evidence of moderate to large joint effusion. 2. No acute fracture or malalignment. 3. Mild 3 compartment osteoarthritic change. Benjamin Person MD Hip and Pelvis X-Ray 01/22/172053 Signed Impressions: Service Date/Time: Sunday, January 22, 2017 21:10 - CONCLUSION: 1. Mild to moderate degenerative change of both hips with no acute fracture or malalignment. There is flattening and remodeling of the right humeral head. Benjamin Person MD Objective Remarks GENERAL: Middle-aged male, lying in bed, intubated sedated HEENT: Normocephalic. Atraumatic. Pupils equal, round, reactive, conjugate. Orotracheally intubated NECK: Trachea is midline. There is no JVD. CHEST: Air entry equal bilaterally with coarse rhonchi and few basilar crackles CARDIOVASCULAR: Tachycardic rate, regular rhythm. ABDOMEN: Soft, nontender, nondistended. No guarding. MUSCULOSKELETAL: Pulses 2+. No peripheral edema. NEUROLOGICAL: Intubated sedated, on sedation hold moves all extremities lower extremities weaker than upper Procedures IVC filter placement 01/25/2017 LP 01/26/2017 A/P Problem List: (1) Septic shock ICD Code: A41.9 - Sepsis, unspecified organism; R65.21 - Severe sepsis with septic shock Status: Acute (2) Acute respiratory failure ICD Code: J96.00 - Acute respiratory failure, unspecified whether with hypoxia or hypercapnia Status: Acute (3) Thrombophlebitis arm ICD Code: I80.8 - Phlebitis and thrombophlebitis of other sites (4) Aspiration pneumonia ICD Code: J69.0 - Pneumonitis due to inhalation of food and vomit Status: Acute (5) Atelectasis of left lung ICD Code: J98.11 - Atelectasis Status: Acute (6) Quadriparesis ICD Code: G82.50 - Quadriplegia, unspecified Status: Acute (7) DVT (deep venous thrombosis) ICD Code: I82.409 - Acute embolism and thrombosis of unspecified deep veins of unspecified lower extremity (8) Altered mental status ICD Code: R41.82 - Altered mental status, unspecified Status: Acute (9) CKD (chronic kidney disease) stage 3, GFR 30-59 ml/min ICD Code: N18.3 - Chronic kidney disease, stage 3 (moderate) Status: Chronic (10) Acute renal failure ICD Code: N17.9 - Acute kidney failure, unspecified Status: Acute (11) Diabetes mellitus ICD Code: E11.9 - Type 2 diabetes mellitus without complications Status: Chronic (12) Distal end of ulna fracture, closed ICD Code: S52.609A - Unspecified fracture of lower end of unspecified ulna, initial encounter for closed fracture Status: Acute (13) Gout ICD Code: M10.9 - Gout, unspecified Status: Chronic Assessment and Plan Assessment: 62yM with now acute and worsening septic shock and associated multi organ system failure including acute hypoxic respiratory failure, acute kidney injury. Likely secondary to healthcare associated pneumonia. Recent diarrhea, but C. Diff negative. Appreciate ID repeat cultures, continue ABX. Hospital associated aspiration pneumonia is most likely source. Remains critically ill NEURO: Acute metabolic encephalopathy Quadriparesis secondary to suspected transverse myelitis Recurrent falls Suspected transverse myelitis. Received Solu-Medrol 250 mg IV every 6 hours 01/27- 02/02, started back on hydrocortisone 02/21/17 LP 01/26 and 02/01. CSF culture negative 01/26, 02/01 Oligoclonal bands negative. CSF/serum IgG index is not elevated. VDRL nonreactive. Cryptococcal antigen negative. Brain MRI 01/23 no acute stroke. Few scattered lacunar infarcts of the brainstem. Moderate chronic white matter changes. MRI cervical/thoracic spine- mild spinal stenosis 3C3/C4 to C6/C7. No cord compression. RPR negative Neurology has been following, Dr. Crenshaw. Repeat CT brain 02/10 - negative Continue PT/OT prop/fent for goal RASS -2. Daily sedation vacation RESP: Acute hypoxemic respiratory failure Healthcare associated pneumonia/Aspiration Pneumonia Intubated emergently 02/10. Extubated 02/13/17 Reintubated 02/20 for acute hypoxemia. vent bundle, hob at 30 degrees, nebs, send sputum culture VQ scan 02/10 low probability for PE. CT chest02/10 - left lower lobe collapse and consolidation. Right lower lobe infiltrate. CXR 02/21. LLL infiltrate Start CPAP trial after EGD colonoscopy today If respiratory failure recurrent due to neuromuscular weakness/transverse myelitis patient may need tracheostomy CV: Septic shock Cardiomyopathy with ejection fraction 20-25% Hyperlipidemia History of hypertension Norepinephrine for goal map > 65 mmhg. Currently weaned off Hold metoprolol and Norvasc. Continue statin. GI: Severe protein energy malnutrition Nausea/vomiting Diarrhea CT abdomen and pelvis 02/10 atrophic left kidney. Bilateral inguinal hernias fat- containing. Nonobstructing 12 mm right kidney stone repeat CT abd/pelvis did not show evidence of obstruction. patient clinically has been having diarrhea (c. diff negative 02/19). also with nausea/vomiting of unclear etiology. will keep NPO for now. EGD/Colonoscopy today FEN/RENAL: Acute kidney injury Chronic kidney disease stage 3-4 History of uric acid kidney stones with prior stent DC Sloan. Monitor intake and output q1hr. Monitor electrolytes. RIOS/SPEP negative. Nephrology following. ID: Septic shock Abscess and Suppurative thrombophlebitis left upper extremity MSSA bacteremia Acute aspiration pneumonia/HCAP Broad-spectrum antibiotics with vanc/zosyn ID on board f/u repeat blood, sputum, urine cultures septic shock most likely secondary to pneumonia HEME: DVT, bilateral posterior tibial vein IVC filter Septic thrombophlebitis with occlusive thrombus mid cephalic and basilic vein Ultrasound 01/23/17 - Bilateral lower extremity with occlusive posterior tibial vein DVTs. Heparin was initially started for DVT but was placed on hold due to LP with suspected traumatic tap. now back on full anticoagulation. IV Heparin 02/11/17. IVC filter was placed 01/25/17. He has not been on a DVT prophylaxis. Last LP was 02/01. Ultrasound LUE 02/10 occlusive thrombus mid cephalic vein, basilic vein. ENDO: Diabetes mellitus Hypoglycemia History of prior adrenal insufficiency with shock Discontinued D10, normal saline KVO continue NPO for nausea/vomiting. Nothing by mouth until EGD colonoscopy completed Started Hydrocortisone 100 mg IV q8hr 02/21/17 (Recent high dose steroids use now hypotensive, hypoglycemic) q4h accuchecks. MSK: Right distal ulna fracture. Dr. Nathan with orthopedics has evaluated and recommended nonoperative management. Right wrist splint in place. Gout PROPH: Famotidine for stress ulcer prophylaxis. Has IVC filter. therapeutic lovenox. ACCESS: s/p art line, central line. Dispo: admit to ICU. very critically ill. This patient remains critically ill with one or more organ systems which are or may become a threat to life. I have spent in excess of 45 minutes discontinuously in the care and management of this patient. This time is exclusive of procedures, and includes, but is not limited to, evaluation of the patient, review of the medical record, discussions with family, consultants, nursing staff, or respiratory therapy, and documentation in the medical record. Problem Qualifiers (1) Aspiration pneumonia: (2) DVT (deep venous thrombosis): Qualified Codes: I82.443 - Acute embolism and thrombosis of tibial vein, bilateral (3) Acute renal failure: Qualified Codes: N17.9 - Acute kidney failure, unspecified (4) Diabetes mellitus: (5) Gout: Antonietta Stephens MD Feb 22, 2017 12:28
[2017-02-22] MEDS: SODIUM CHLOR 0.9% 1000 ML INJ 1,000 ML IV SCH (13:00)
--- NOTE | 2017-02-22 14:06 | HHI.NPPN ---
Subjective History of Present Illness 61-year-old with history of urinary stone Additional Remarks pt is on vent Review of Systems General Constitutional: Fatigue Objective Data Data Vital Signs Date Time Temp Pulse Resp B/P (MAP) Pulse Ox O2 Delivery O2 Flow Rate FiO2 02/22/17 11:51 99 40 02/22/17 10:22 81 104/54 02/22/17 08:03 100 40 02/22/17 06:00 62 02/22/17 04:00 96.6 58 15 142/72 (95) 100 02/22/17 04:00 58 02/22/17 04:00 40 02/22/17 03:55 100 40 02/22/17 02:00 60 02/22/17 00:00 97.2 62 17 116/62 (80) 99 02/22/17 00:00 40 02/22/17 00:00 62 02/21/17 22:00 66 02/21/17 20:26 100 40 02/21/17 20:00 70 02/21/17 20:00 40 02/21/17 20:00 97.8 70 19 99 126/68 (87) 02/21/17 19:00 100 Mechanical Ventilator 40 02/21/17 18:00 68 02/21/17 16:19 100 40 02/21/17 16:00 67 02/21/17 16:00 50 02/21/17 16:00 98.0 67 16 100 119/59 (79) -: 02/22/17 0515 02/22/17 0515 Physical Exam General Appearance: Pale Neck Neck Exam: Neck Supple Pulmonary Resp Exam: Crackles, Rhonchi, Decreased Bases Cardiology CV Exam: Regular, Normal Sinus Rhythm Gastrointestinal/Abdomen GI Exam: Soft, Non-Tender, Bowel Sounds Present Extremeties Extremities Exam: Moderate Edema Neurologic Neuro Exam: Sedated Assessment/Plan Problem List: (1) Acute renal failure ICD Codes: N17.9 - Acute kidney failure, unspecified Status: Acute Plan: Patient developed Hypotension,sepsis staph aureus respiratory failure and increase WBC. Had aspiration pneumonia, developed sepsis with ARF again creatinine declined slightly post hydration has another event Septic given fluids for now stabilize BP and I will follow renal functions stable UOP 1. 7 L, creatinine 1.5. follow BMP Extubation soon (2) CKD (chronic kidney disease) stage 3, GFR 30-59 ml/min ICD Codes: N18.3 - Chronic kidney disease, stage 3 (moderate) Status: Chronic Plan: Ultrasound revealed chronic kidney disease there is no kidney stones (3) Diabetes ICD Codes: E11.9 - Type 2 diabetes mellitus without complications Plan: Continue to monitor (4) Distal end of ulna fracture, closed ICD Codes: S52.609A - Unspecified fracture of lower end of unspecified ulna, initial encounter for closed fracture Status: Acute Plan: Orthopedic is following Problem Qualifiers (1) Acute renal failure: Qualified Codes: N17.9 - Acute kidney failure, unspecified Laura Liao MD Feb 22, 2017 14:06
[2017-02-22] MEDS: FLUCONAZOLE 400 MG PREMIX BAG 200 ML IV SCH (16:36)
--- NOTE | 2017-02-22 17:40 | GIPROC ---
[facility] [address] [facility]. [facility], [address] COLONOSCOPY PROCEDURE REPORT EXAM DATE: 02/22/2017 PATIENT NAME: Philip Kerr MR #: [id number] BIRTHDATE: 1955 ENDOSCOPIST: Jerica Shepard MD ORDER #: [id number] VACUUM FRAME OPERATOR: Tami Herrera RN and Gen Fischer CST STATUS: inpatient INDICATIONS: The patient is a 62 yr old male here for a colonoscopy due to diarrhea PROCEDURE PERFORMED: Colonoscopy with biopsy Colonoscopy with polypectomy MEDICATIONS: Per Anesthesia and None. PREP QUALITY: 20 % obscured PREP TYPE:Other: ESTIMATED BLOOD LOSS: None CONSENT: The patient understands the risks and benefits of the procedure and understands that these risks include, but are not limited to: sedation, allergic reaction, infection, perforation and/or bleeding. Alternative means of evaluation and treatment include, among others: physical exam, x-rays, and/or surgical intervention. The patient elects to proceed with this endoscopic procedure. medical equipment was checked for proper function. Hand hygiene and appropriate measures for infection prevention was taken. After the risks, benefits and alternatives of the procedure were thoroughly explained, Informed consent was verified, confirmed and timeout was successfully executed by the treatment team. A digital exam revealed external hemorrhoids The Pentax [id number] endoscope was introduced through the anus and advanced to the cecum, which was identified by both the appendix and ileocecal valve. The instrument was then slowly withdrawn as the colon was fully examined. COLON FINDINGS: Diverticulosis sigmoid , descending polyp hepatic flexure-two--6 mm sessile-cold snare polypectomy with complete removal another 5 mm-cold biopsy with complete removal polyp sessile decending colon-7 mm-cold snare polypectomy with removal sigmoid-6 mm-cold snare polypectomy with complete removal random biopsies from descenidng colon-. Retroflexed views revealed internal hemorrhoids and Retroflexed views revealed small internal hemorrhoids The scope was then completely withdrawn from the patient and the procedure terminated. PROCEDURE WITHDRAWAL TIME:10minutes ADVERSE EVENTS: There were no complications. IMPRESSIONS: 1. Diverticulosis sigmoid , descending polyp hepatic flexure-two--6 mm sessile-cold snare polypectomy with complete removal another 5 mm-cold biopsy with complete removal polyp sessile decending colon-7 mm-cold snare polypectomy with removal sigmoid-6 mm-cold snare polypectomy with complete removal random biopsies from descenidng colon- 2. Retroflexed views revealed internal hemorrhoids 3. Retroflexed views revealed small internal hemorrhoids 4. Revealed external hemorrhoids RECOMMENDATIONS: 1. Await biopsy results. Biopsy results will not be ready for 7-10 days. If you don't hear from us in two weeks, call our office for results. 2. Benefiber 2 tsp daily 3. High fiber diet 4. Probiotics from any [facility] or [employer] food store 5. Yearly rectal exams RECALL: Colonoscopy, pending biopsy results Jerica Shepard MD eSigned: Jerica Shepard MD 02/22/2017 5:40 PM cc: PATIENT NAME: Philip Kerr MR#: [id number]
--- NOTE | 2017-02-22 17:44 | GIPROC ---
[facility] [address] [facility]. 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 TOPICAL ANESTHETIC: none CONSENT: The patient understands the risks and benefits of the procedure and understands that these risks include, but are not limited to: sedation, allergic reaction, infection, perforation and/or bleeding. Alternative means of evaluation and treatment include, among others: physical exam, x-rays, and/or surgical intervention. The patient elects to proceed with this endoscopic procedure. medical equipment was checked for proper function. Hand hygiene and appropriate measures for infection prevention was taken. After the risks, benefits and alternatives of the procedure were thoroughly explained, Informed consent was verified, confirmed and timeout was successfully executed by the treatment team. The patient was anesthetized with topical anesthesia and the EC-[id number] (Pedi C) endoscope was introduced through the mouth and advanced to the second portion of the duodenum. Retroflexed views revealed a hiatal hernia The gastroscope was then slowly withdrawn and removed. Gastritis antrum-biopsy esopahgitis distal esophagus-biopsy duodenum normal-biopsy. ADVERSE EVENTS: There were no complications. IMPRESSIONS: 1. Gastritis antrum-biopsy esopahgitis distal esophagus-biopsy duodenum normal-biopsy 2. Retroflexed views revealed a hiatal hernia RECOMMENDATIONS: 1. Await biopsy results. Biopsy results will not be ready for 7-10 days. If you don't hear from us in two weeks, call our office for biopsy results. 2. Anti-reflux regimen 3. Continue PPI 4. Avoid NSAIDS PATIENT CONDITION: stable DISPOSITION: Inpatient REPEAT EXAM: EGD pending biopsy results Jerica Shepard MD eSigned: Jerica Shepard MD 02/22/2017 5:43 PM cc: PATIENT NAME: Philip Kerr MR#: [id number]
[2017-02-22] MEDS ORDERED: PROPOFOL 200 MG/20 ML AMP ONE (18:50)
[2017-02-22] MEDS: FAMOTIDINE 20 MG/2 ML VIAL IV PUSH SCH (20:26)
[2017-02-22] MEDS: ATORVASTATIN 10 MG TAB PO SCH (20:27)
[2017-02-23] VITALS (18 sets, daily range): BP systolic 136–166; BP diastolic 68–82; PULSE 58–87; RESP 13–16; TEMP 97.2–97.9; O2SAT 97–100
[2017-02-23] MEDS: PIPERACIL-TAZO 4.5 GM PREMIX 100 ML IV SCH ×2 (00:35→08:28)
[2017-02-23] MEDS: PROPOFOL 1000 MG/100 ML INJ 100 ML IV SCH (04:14)
[2017-02-23] MEDS: HYDROCORTISONE SOD SUCCINATE 100 MG VIAL IV SCH ×3 (04:15→21:15)
[2017-02-23] MEDS: POTASSIUM PHOSPHATE/SODIUM PHOSPHATE 250 MG TAB PO SCH ×3 (04:15→21:15)
[2017-02-23] MEDS: LINEZOLID 600 MG PREMIX 300 ML IV SCH (04:15)
[2017-02-23 04:16] LABS: HEMATOCRIT 24.6 % (39.0-51.0); MEAN CELL VOLUME 82.4 FL (80.0-100.0); MEAN CORPUSCULAR HGB CONC 32.8 % (32.0-36.0); PLATELET COUNT 177 TH/MM3 (150-450); RED BLOOD COUNT 2.99 MIL/MM3 (4.50-5.90); RED CELL DISTRIBUTION WIDTH 18.7 % (11.6-17.2); REVIEW FLAG FINAL; WHITE BLOOD COUNT 10.5 TH/MM3 (4.0-11.0)
[2017-02-23] MEDS: RESP: ALBUTEROL 2.5 MG/IPRATROPIUM 0.5 MG NEB (SCH) INH ×4 (04:21→20:57)
[2017-02-23 04:42] LABS: BICARBONATE 23.9 MEQ/L (21.0-32.0); POTASSIUM 3.1 MEQ/L (3.5-5.1)
[2017-02-23] MEDS: POTASSIUM CHLOR 40 MEQ PREMIX 100 ML IV PRN ×3 (05:07→21:58)
[2017-02-23] MEDS: INSULIN NovoLIN REGULAR SUPPLEMENTAL SCALE SQ SCH ×7 (05:09→23:25)
[2017-02-23] MEDS: CHLORHEXIDINE 0.12% (ORAL KIT) 15 ML CUP MT SCH ×2 (08:00→19:51)
[2017-02-23] MEDS: DOCUSATE SODIUM 50 MG/SENNA 8.6 MG TAB PO SCH ×2 (08:28→19:52)
[2017-02-23] MEDS: LACTOBACILLUS ACIDOPHILUS TAB PO SCH ×3 (08:28→17:17)
[2017-02-23] MEDS: TAMSULOSIN HCL 0.4 MG CAP PO SCH ×2 (08:29→19:52)
[2017-02-23] MEDS: SODIUM CHLORIDE 0.9% FLUSH 10 ML FLUSH IV FLUSH SCH ×2 (08:29→19:51)
[2017-02-23] MEDS: VASOPRESSIN INJ 40 UNITS in DEXTROSE 5% IN WATER 100ML INJ 98 ML IV SCH ×2 (08:42)
--- NOTE | 2017-02-23 10:42 | HHI.IDPN ---
Subjective Subjective Remarks Patient is a 62-year-old male, admitted to the hospital for evaluation of pain in his right wrist. He gave a history of falling about a week ago and apparently had immediate pain in the right wrist. He did not seek any medical attention initially because reportedly he was very busy. He eventually presented, and he was found to have a distal ulnar fracture on plain films. He also had some redness and swelling. Orthopedics saw the patient, and was being treated conservatively with the splint. During this hospitalization also he started complaining of generalized weakness but more so in his lower extremity than his upper extremity. He had swelling in both lower extremity which revealed evidence of DVT in the posterior tibial veins. Neurology had seen the patient and he underwent lumbar puncture which apparently was traumatic. Patient was therefore not given anticoagulation because of the traumatic LP, and he underwent placement of an IVC filter on January 25. Patient had another lumbar puncture on February 01. He was felt to have transverse myelitis, and he was given high-dose IV Solu-Medrol from January 27 to February 02. There was apparently some improvement in his weakness. The imaging studies done for his weakness showed some spinal stenosis, and neurosurgery was consult that and recommended that there was no surgical intervention to be done. Patient has been stabilizing, but last night apparently deteriorated, and he ended up getting intubated, and had significant hypotension requiring pressors. There was also an ultrasound done of his left upper extremity which showed DVT, and there was evidence of superior 2 thrombophlebitis. Vascular surgery was consult to it and he had IND on his left upper extremity. Patient has had some fevers since yesterday. 2 blood cultures were done yesterday and they're now reported as growing gram-positive cocci in [place] in clusters. He is currently sedated and intubated. He is on Levophed and vasopressin. A central line was placed as well as a femoral a line. He apparently had an IV in his left upper extremity and that was removed yesterday. Patient also has history of chronic kidney disease, and nephrology evaluated the patient. He was just being monitored for his renal insufficiency. Infectious disease consultation has been requested to evaluate the patient. Notes reviewed D/W RN Temps ok Tolerating CPAP, possible extubation today Spoke with sister at bedside C/S negative so far C diff negative On Abx for MSSA bacteremia due to suppurative thrombophlebitis MELANIE S/P OR last (+) BC 02/12 Antibiotics Zosyn Zyvox Diflucan Lines LSC TLC Past Medical History Reviewed Allergies: Coded Allergies: levofloxacin (Verified Allergy, Severe, 01/22/17) Objective . Vital Signs Date Time Temp Pulse Resp B/P (MAP) Pulse Ox O2 Delivery O2 Flow Rate FiO2 02/23/17 10:22 99 40 02/23/17 08:42 65 128/66 02/23/17 07:44 100 40 02/23/17 06:00 72 02/23/17 04:21 100 40 02/23/17 04:00 97.7 58 15 136/68 (90) 99 02/23/17 04:00 40 02/23/17 04:00 58 02/23/17 02:00 62 02/23/17 00:23 98 40 02/23/17 00:00 65 02/23/17 00:00 40 02/23/17 00:00 97.6 65 15 141/68 (92) 100 02/22/17 22:00 72 02/22/17 21:41 100 40 02/22/17 20:20 100 40 02/22/17 20:00 40 02/22/17 20:00 74 02/22/17 20:00 97.8 74 20 138/66 (90) 100 02/22/17 19:00 100 Mechanical Ventilator 40 02/22/17 18:00 71 02/22/17 16:00 98.3 68 16 110/56 (74) 99 02/22/17 16:00 40 02/22/17 16:00 68 02/22/17 14:00 76 02/22/17 12:00 80 02/22/17 12:00 99.4 80 18 100/52 (68) 99 02/22/17 12:00 40 02/22/17 11:51 99 40 . Laboratory Tests Test 02/22/17 05:15 02/23/17 04:05 White Blood Count 10.5 TH/MM3 10.5 TH/MM3 Red Blood Count 3.08 MIL/MM3 2.99 MIL/MM3 Hemoglobin 8.4 GM/DL 8.1 GM/DL Hematocrit 25.5 % 24.6 % Mean Corpuscular Volume 82.6 FL 82.4 FL Mean Corpuscular Hemoglobin 27.4 PG 27.0 PG Mean Corpuscular Hemoglobin Concent 33.2 % 32.8 % Red Cell Distribution Width 19.1 % 18.7 % Platelet Count 158 TH/MM3 177 TH/MM3 Mean Platelet Volume 8.6 FL 8.3 FL Neutrophils (%) (Auto) 92.8 % Lymphocytes (%) (Auto) 3.6 % Monocytes (%) (Auto) 2.5 % Eosinophils (%) (Auto) 0.0 % Basophils (%) (Auto) 1.1 % Neutrophils # (Auto) 9.7 TH/MM3 Lymphocytes # (Auto) 0.4 TH/MM3 Monocytes # (Auto) 0.3 TH/MM3 Eosinophils # (Auto) 0.0 TH/MM3 Basophils # (Auto) 0.1 TH/MM3 CBC Comment AUTO DIFF Differential Total Cells Counted 100 Neutrophils % (Manual) 87 % Band Neutrophils % 3 % Lymphocytes % 6 % Monocytes % 2 % Neutrophils # (Manual) 9.7 TH/MM3 Metamyelocytes 1 % Myelocytes 1 % Differential Comment FINAL DIFF MANUAL Platelet Estimate NORMAL Platelet Morphology Comment NORMAL Laboratory Tests Test 02/22/17 05:15 02/22/17 18:55 02/23/17 04:05 Blood Urea Nitrogen 15 MG/DL 17 MG/DL Creatinine 1.55 MG/DL 1.70 MG/DL Random Glucose 249 MG/DL 196 MG/DL Total Protein 4.4 GM/DL 4.4 GM/DL Calcium Level 6.9 MG/DL 6.6 MG/DL Sodium Level 139 MEQ/L 143 MEQ/L Potassium Level 3.0 MEQ/L 2.8 MEQ/L 3.1 MEQ/L Chloride Level 105 MEQ/L 109 MEQ/L Carbon Dioxide Level 21.9 MEQ/L 23.9 MEQ/L Anion Gap 12 MEQ/L 10 MEQ/L Estimat Glomerular Filtration Rate 46 ML/MIN 41 ML/MIN Protein Corrected Calcium 8.4 MG/DL 8.0 MG/DL Microbiology Date/Time Source Procedure Growth Status 02/20/17 12:35 Blood Peripheral Aerobic Blood Culture - Preliminary NO GROWTH IN 2 DAYS Resulted 02/20/17 12:35 Blood Peripheral Anaerobic Blood Culture - Preliminary NO GROWTH IN 2 DAYS Resulted 02/20/17 12:20 Blood Peripheral Aerobic Blood Culture - Preliminary NO GROWTH IN 2 DAYS Resulted 02/20/17 12:20 Blood Peripheral Anaerobic Blood Culture - Preliminary NO GROWTH IN 2 DAYS Resulted 02/20/17 12:55 Sputum Endotracheal Gram Stain - Final Complete 02/20/17 12:55 Sputum Endotracheal Sputum Culture - Final HEAVY GROWTH NORMAL RESPIRATORY SALLY Complete 02/20/17 12:10 Urine Clean Catch Urine Culture - Final NO GROWTH IN 48 HOURS. Complete Imaging Chest X-Ray 02/20/17 0000 Signed Impressions: Service Date/Time: Monday, February 20, 2017 11:36 - CONCLUSION: 1. Stable very small right and small left pleural effusions with left lower lobe airspace consolidation. 2. No significant interval change. Juan Bhakta MD Abdomen/Pelvis CT 02/19/17 0000 Signed Impressions: Service Date/Time: Sunday, February 19, 2017 19:09 - CONCLUSION: 1. Areas of calcification seen in the right renal collecting system, right renal pelvis, and proximal right ureter. These appear to layer and be dependent suggesting likely to represent smaller areas of milk of calcium or small stones. There is mild dilatation of the right renal collecting system and right ureter. A definite obstructing stone at this time is not seen. 2. A small amount of air within the urinary bladder. This should be correlated with any recent catheterization. 3. Mild bilateral pleural effusions with accompanying atelectasis or consolidation at the left base. The consolidation was present previously. 4. Prominent degenerative change in the lumbar spine and at the hip joints bilaterally. Angelo Manzo MD Chest X-Ray 02/12/17 0600 Signed Impressions: Service Date/Time: Sunday, February 12, 2017 03:32 - CONCLUSION: 1. Support apparatus in good position. Relatively stable basilar airspace disease and pleural effusions. Trace Holloway MD Upper Extremity Ultrasound 02/10/17 0000 Signed Impressions: Service Date/Time: Friday, February 10, 2017 18:46 - CONCLUSION: Occlusive thrombus in the cephalic and basilic veins. Benjamin Person MD Lung Scan- Nuclear Medicine 02/10/17 0000 Signed Impressions: Service Date/Time: Friday, February 10, 2017 22:17 - CONCLUSION: Low probability pulmonary embolism. Candido Patton MD Head CT 02/10/17 0000 Signed Impressions: Service Date/Time: Friday, February 10, 2017 23:51 - CONCLUSION: Negative noncontrast CT brain. Candido Patton MD Chest CT 02/10/17 0000 Signed Impressions: Service Date/Time: Friday, February 10, 2017 23:56 - CONCLUSION: Left lower lobe collapse with consolidation. Patchy infiltrates the medial right lower lung. Candido Patton MD Abdomen/Pelvis CT 02/10/17 0000 Signed Impressions: Service Date/Time: Friday, February 10, 2017 23:59 - CONCLUSION: 1. Nonobstructing 12 mm calcified stone lower pole right kidney. 2. Atrophic left kidney with significant cortical thinning. 3. Bilateral fat-containing inguinal hernias, large on the right, and moderate on the left. 4. Consolidative collapse of the left lower lobe. Candido Patton MD Abdomen X-Ray 02/10/17 0000 Signed Impressions: Service Date/Time: Friday, February 10, 2017 08:14 - CONCLUSION: No acute abdominal abnormality is identified. Angelo Allen MD Wrist X-Ray 02/06/17 0000 Signed Impressions: Service Date/Time: Monday, February 06, 2017 12:50 - CONCLUSION: Minimally displaced distal radius and ulnar fractures. Armando Dodd MD Lumbar Puncture Fluoroscopy 02/01/17 0000 Signed Impressions: Service Date/Time: January 09:35 - CONCLUSION: Uncomplicated fluoroscopically guided lumbar puncture. CSF was clear. Nabeel Peralta MD Head Magnetic Resonance Angiography 01/27/17 0000 Signed Impressions: Service Date/Time: Friday, January 27, 2017 10:33 - CONCLUSION: No intracranial vascular abnormality is identified. There is no aneurysm visualized. Angelo Allen MD IVC Filter Placement X-Ray 01/25/17 0000 Signed Impressions: Service Date/Time: January 10:29 - CONCLUSION: Uncomplicated inferior vena cava filter placement as above. Yung Fowler MD Thoracic Spine MRI 01/24/17 0000 Signed Impressions: Service Date/Time: Tuesday, January 24, 2017 22:29 - CONCLUSION: 1. Mild degenerative spondylosis most prominently at T11-L1 with slight effacement of the anterior thecal sac and left lateral recess. No significant neural foraminal stenosis. 2. No acute fracture. Juan Bhakta MD Renal Ultrasound 9/5/17 0000 Signed Impressions: Service Date/Time: Monday, January 23, 2017 08:53 - CONCLUSION: 1. Evidence of chronic parenchymal disease of both kidneys. No obstructive uropathy or other acute abnormality demonstrated. 2. Trace ascites, nonspecific. Angelo Garrido MD Lumbar Spine MRI 01/23/17 Signed Impressions: Service Date/Time: Monday, January 23, 2017 17:01 - CONCLUSION: 1. At L4-5 is a broad-based disc protrusion with severe central canal and lateral recess stenosis and flattening of the exiting right L4 nerve root. 2. L5-S1 there is a disc protrusion and moderate stenosis with flattening of the exiting L5 nerve roots bilaterally. 3. At L3-4 there is a moderate to severe central stenosis and lateral recess stenosis with mild foraminal stenosis. 4. No acute fracture or spondylolisthesis. Trace Holloway MD Lower Extremity Ultrasound 01/23/17 Signed Impressions: Service Date/Time: Monday, January 23, 2017 09:53 - CONCLUSION: Bilateral focal lower extremity DVT involving the posterior tibial veins. Angelo Garrido MD Cervical Spine MRI 01/23/17 Signed Impressions: Service Date/Time: Monday, January 23, 2017 17:01 - CONCLUSION: 1. Multilevel cervical spine degenerative changes as above. 2. Mild degrees of spinal stenosis at C3/C4-C6/C7. No cord compression or cord signal abnormality. 3. Age indeterminate left paracentral/foraminal disc protrusion at C6/C7. 4. Multilevel foraminal stenosis, most severe on the left at C6/C7. Please see individual levels above. 5. No fracture or subluxation of the cervical spine. Angelo Garrido MD Brain MRI 01/23/17 Signed Impressions: Service Date/Time: Monday, January 23, 2017 17:01 - CONCLUSION: 1. No acute stroke or other acute intracranial abnormality demonstrated. 2. Moderate severity chronic white matter changes, nonspecific but most likely related to chronic small vessel disease. 3. Few scattered tiny lacunar infarcts of the brainstem. 4. Given the findings are not entirely specific, clinical evaluation for possible multiple sclerosis recommended. Angelo Garrido MD Knee X-Ray 01/22/172053 Signed Impressions: Service Date/Time: Sunday, January 22, 2017 21:17 - CONCLUSION: 1. Evidence of moderate to large joint effusion. 2. No acute fracture or malalignment. 3. Mild 3 compartment osteoarthritic change. Benjamin Person MD Hip and Pelvis X-Ray 01/22/172053 Signed Impressions: Service Date/Time: Sunday, January 22, 2017 21:10 - CONCLUSION: 1. Mild to moderate degenerative change of both hips with no acute fracture or malalignment. There is flattening and remodeling of the right humeral head. Benjamin Person MD Physical Exam GENERAL:Awake, comfortable on CPAP SKIN: Warm and dry. No generalized rash. Has ecchymoses in UE EYES: [place] conjunctiva. No petechia or hemorrhage. Pupils equal, round and reactive to light. No scleral icterus. EARS, NOSE AND THROAT: Nose without bleeding or purulent nasal discharge. He is orally intubated NECK: Trachea midline. Supple and no meningeal signs CARDIOVASCULAR: Regular rate and rhythm. Soft heart sounds. No murmurs, rubs or gallops heard RESPIRATORY: Coarse BS bilaterally, decreased on L base ABDOMEN: Soft, nondistended, bowel sounds present and normoactive, no reaction to palpation. No guarding. EXTREMITIES: No clubbing, cyanosis. Both hands less edematous. Has evidence of multiple gouty tophi in both hands and feet. LUE - wound vac in place NEUROLOGICAL: Awake and following PSYCHIATRIC: Unable to assess LINE: Line with no evidence of infection : Sloan in place, urine looks clear Assessment & Plan Remarks IMPRESSION New shock, sepsis, ?aspiration - better - sputum with normal sally MSSA sepsis, with shock, due to suppurative thrombophlebitis LUE, S/P I and D and excision of portion of cephalic vein - off pressors Respiratory failure, CXR now with infiltrates - sputum with MSSA - extubated Recurrent respiratory failure, ?aspiration - tolerating CPAP - possible extubation today Recent Rx 7 days high dose solumedrol for transverse myelitis Wu LE DVT has IVC filter placed 01/25 - ?hypercoagulable state Chronic kidney disease Known DM, HTN Gouty tophi both hands and feet Diarrhea, C diff negative RECOMMENDATION Continue IV Oxacillin - plan 6 weeks for Rx endovascular infection - anticipated end date Mar 25 Stop Zosyn Stop Zyvox Stop Diflucan Monitor progress Will need 6 weeks IV Abx from date of last (+) BC for MSSA bacteremia Weaning per CCM D/W RN Dr Carrie Puente covering this weekend if with any ID issue or question Irene Edwards MD Feb 23, 2017 10:42
--- NOTE | 2017-02-23 12:07 | HHI.GIFU ---
Subjective Remarks Resting in bed. Awake on CPAP. Possible extubation today. Pt had egd/ colonoscopy yesterday. States he has mild abdominal discomfort, but much improved from a few days ago. No n/v. (Nena Driver) Objective Vitals I&O Vital Signs Date Time Temp Pulse Resp B/P (MAP) Pulse Ox O2 Delivery O2 Flow Rate FiO2 02/23/17 11:35 99 Nasal Cannula 2 02/23/17 11:35 99 Nasal Cannula 2.00 02/23/17 11:35 Mechanical Ventilator 02/23/17 10:22 99 40 02/23/17 10:00 69 02/23/17 08:42 65 128/66 02/23/17 08:00 97.8 70 13 160/80 (106) 100 02/23/17 08:00 40 02/23/17 08:00 68 02/23/17 07:44 100 40 02/23/17 07:00 99 Mechanical Ventilator 40 02/23/17 06:00 72 02/23/17 04:21 100 40 02/23/17 04:00 97.7 58 15 136/68 (90) 99 02/23/17 04:00 40 02/23/17 04:00 58 02/23/17 02:00 62 02/23/17 00:23 98 40 02/23/17 00:00 65 02/23/17 00:00 40 02/23/17 00:00 97.6 65 15 141/68 (92) 100 02/22/17 22:00 72 02/22/17 21:41 100 40 02/22/17 20:20 100 40 02/22/17 20:00 40 02/22/17 20:00 74 02/22/17 20:00 97.8 74 20 138/66 (90) 100 02/22/17 19:00 100 Mechanical Ventilator 40 02/22/17 18:00 71 02/22/17 16:00 98.3 68 16 110/56 (74) 99 02/22/17 16:00 40 02/22/17 16:00 68 02/22/17 14:00 76 02/22/17 12:00 80 02/22/17 12:00 99.4 80 18 100/52 (68) 99 02/22/17 12:00 40 I/O 02/22/17 02/22/17 02/22/17 02/23/17 02/23/17 02/23/17 07:00 15:00 23:00 07:00 15:00 23:00 Intake Total 1960 ml 560 ml 1115 ml 1162 ml 100 ml Output Total 2400 ml 600 ml 900 ml Balance -440 ml 560 ml 515 ml 262 ml 100 ml IV Total 400 ml 560 ml 735 ml 1042 ml 100 ml Tube Irrigant 60 ml 80 ml 120 ml Other 1500 ml 300 ml Output Urine Total 1100 ml 400 ml 900 ml Stool Total 1300 ml 200 ml Drainage Total 0 ml 0 ml 0 ml Bladder Scan Volume Amount 800 ml 581 ml # Bowel Movements 1 Laboratory Laboratory Tests Test 02/22/17 18:55 02/23/17 04:05 Potassium Level 2.8 3.1 White Blood Count 10.5 Red Blood Count 2.99 Hemoglobin 8.1 Hematocrit 24.6 Mean Corpuscular Volume 82.4 Mean Corpuscular Hemoglobin 27.0 Mean Corpuscular Hemoglobin Concent 32.8 Red Cell Distribution Width 18.7 Platelet Count 177 Mean Platelet Volume 8.3 Blood Urea Nitrogen 17 Creatinine 1.70 Random Glucose 196 Total Protein 4.4 Calcium Level 6.6 Sodium Level 143 Chloride Level 109 Carbon Dioxide Level 23.9 Anion Gap 10 Estimat Glomerular Filtration Rate 41 Protein Corrected Calcium 8.0 Date/Time Source Procedure Growth Status 02/20/17 12:35 Blood Peripheral Aerobic Blood Culture - Preliminary NO GROWTH IN 3 DAYS Resulted 02/20/17 12:35 Blood Peripheral Anaerobic Blood Culture - Preliminary NO GROWTH IN 3 DAYS Resulted 02/01/17 09:55 Cerebral Spinal Fluid Lumbar Puncture Fungal Smear - Final NO FUNGAL ELEMENTS SEEN. Resulted 02/01/17 09:55 Cerebral Spinal Fluid Lumbar Puncture Fungal Culture - Preliminary NO GROWTH IN 3 WEEKS Resulted 02/17/17 05:55 Stool Stool Stool Occult Blood (GREGORY) - Final HEMOCCULT POSITIVE Complete 02/20/17 12:55 Sputum Endotracheal Gram Stain - Final Complete 02/20/17 12:55 Sputum Endotracheal Sputum Culture - Final HEAVY GROWTH NORMAL RESPIRATORY EARL Complete 02/20/17 12:10 Urine Clean Catch Urine Culture - Final NO GROWTH IN 48 HOURS. Complete 02/11/17 09:10 Abscess Arm Acid Fast Stain - Final NO ACID FAST BACILLI SEEN Resulted 02/11/17 09:10 Abscess Arm Mycobacterial Culture - Preliminary NO GROWTH IN 1 WEEK Resulted Imaging Last Impressions Chest X-Ray 02/21/17 0600 Signed Impressions: Service Date/Time: Tuesday, February 21, 2017 04:12 - CONCLUSION: Repositioned endotracheal tube, currently about 4 cm above the roxanna. Otherwise no change. Mild left base consolidation again seen. Angelo Garrido MD Abdomen/Pelvis CT 02/19/17 0000 Signed Impressions: Service Date/Time: Sunday, February 19, 2017 19:09 - CONCLUSION: 1. Areas of calcification seen in the right renal collecting system, right renal pelvis, and proximal right ureter. These appear to layer and be dependent suggesting likely to represent smaller areas of milk of calcium or small stones. There is mild dilatation of the right renal collecting system and right ureter. A definite obstructing stone at this time is not seen. 2. A small amount of air within the urinary bladder. This should be correlated with any recent catheterization. 3. Mild bilateral pleural effusions with accompanying atelectasis or consolidation at the left base. The consolidation was present previously. 4. Prominent degenerative change in the lumbar spine and at the hip joints bilaterally. Angelo Manzo MD Abdomen X-Ray 02/18/17 0000 Signed Impressions: Service Date/Time: Saturday, February 18, 2017 14:35 - CONCLUSION: Normal examination. Device overlies left upper abdomen. Otherwise unremarkable study. Duy Genao MD Upper Extremity Ultrasound 02/10/17 0000 Signed Impressions: Service Date/Time: Friday, February 10, 2017 18:46 - CONCLUSION: Occlusive thrombus in the cephalic and basilic veins. Benjamin Person MD Lung Scan- Nuclear Medicine 02/10/17 0000 Signed Impressions: Service Date/Time: Friday, February 10, 2017 22:17 - CONCLUSION: Low probability pulmonary embolism. Candido Patton MD Head CT 02/10/17 0000 Signed Impressions: Service Date/Time: Friday, February 10, 2017 23:51 - CONCLUSION: Negative noncontrast CT brain. Candido Patton MD Chest CT 02/10/17 0000 Signed Impressions: Service Date/Time: Friday, February 10, 2017 23:56 - CONCLUSION: Left lower lobe collapse with consolidation. Patchy infiltrates the medial right lower lung. Candido Patton MD Wrist X-Ray 02/06/17 0000 Signed Impressions: Service Date/Time: Monday, February 06, 2017 12:50 - CONCLUSION: Minimally displaced distal radius and ulnar fractures. Armando Dodd MD Lumbar Puncture Fluoroscopy 02/01/17 0000 Signed Impressions: Service Date/Time: January 09:35 - CONCLUSION: Uncomplicated fluoroscopically guided lumbar puncture. CSF was clear. Nabeel Peralta MD Head Magnetic Resonance Angiography 01/27/17 0000 Signed Impressions: Service Date/Time: Friday, January 27, 2017 10:33 - CONCLUSION: No intracranial vascular abnormality is identified. There is no aneurysm visualized. Angelo Allen MD IVC Filter Placement X-Ray 01/25/17 0000 Signed Impressions: Service Date/Time: January 10:29 - CONCLUSION: Uncomplicated inferior vena cava filter placement as above. Yung Fowler MD Thoracic Spine MRI 01/24/17 0000 Signed Impressions: Service Date/Time: Tuesday, January 24, 2017 22:29 - CONCLUSION: 1. Mild degenerative spondylosis most prominently at T11-L1 with slight effacement of the anterior thecal sac and left lateral recess. No significant neural foraminal stenosis. 2. No acute fracture. Juan Bhakta MD Renal Ultrasound 01/23/17 0000 Signed Impressions: Service Date/Time: Monday, January 23, 2017 08:53 - CONCLUSION: 1. Evidence of chronic parenchymal disease of both kidneys. No obstructive uropathy or other acute abnormality demonstrated. 2. Trace ascites, nonspecific. Angelo Garrido MD Lumbar Spine MRI 01/23/17 0000 Signed Impressions: Service Date/Time: Monday, January 23, 2017 17:01 - CONCLUSION: 1. At L4-5 is a broad-based disc protrusion with severe central canal and lateral recess stenosis and flattening of the exiting right L4 nerve root. 2. L5-S1 there is a disc protrusion and moderate stenosis with flattening of the exiting L5 nerve roots bilaterally. 3. At L3-4 there is a moderate to severe central stenosis and lateral recess stenosis with mild foraminal stenosis. 4. No acute fracture or spondylolisthesis. Trace Holloway MD Lower Extremity Ultrasound 01/23/17 0000 Signed Impressions: Service Date/Time: Monday, January 23, 2017 09:53 - CONCLUSION: Bilateral focal lower extremity DVT involving the posterior tibial veins. Angelo Garrido MD Cervical Spine MRI 01/23/17 0000 Signed Impressions: Service Date/Time: Monday, January 23, 2017 17:01 - CONCLUSION: 1. Multilevel cervical spine degenerative changes as above. 2. Mild degrees of spinal stenosis at C3/C4-C6/C7. No cord compression or cord signal abnormality. 3. Age indeterminate left paracentral/foraminal disc protrusion at C6/C7. 4. Multilevel foraminal stenosis, most severe on the left at C6/C7. Please see individual levels above. 5. No fracture or subluxation of the cervical spine. Angelo Garrido MD Brain MRI 01/23/17 0000 Signed Impressions: Service Date/Time: Monday, January 23, 2017 17:01 - CONCLUSION: 1. No acute stroke or other acute intracranial abnormality demonstrated. 2. Moderate severity chronic white matter changes, nonspecific but most likely related to chronic small vessel disease. 3. Few scattered tiny lacunar infarcts of the brainstem. 4. Given the findings are not entirely specific, clinical evaluation for possible multiple sclerosis recommended. Angelo Garrido MD Knee X-Ray 01/22/[id number] Signed Impressions: Service Date/Time: Sunday, January 22, 2017 21:17 - CONCLUSION: 1. Evidence of moderate to large joint effusion. 2. No acute fracture or malalignment. 3. Mild 3 compartment osteoarthritic change. Benjamin Person MD Hip and Pelvis X-Ray [id number]/22/[id number] Signed Impressions: Service Date/Time: Sunday, January 22, 2017 21:10 - CONCLUSION: 1. Mild to moderate degenerative change of both hips with no acute fracture or malalignment. There is flattening and remodeling of the right humeral head. Benjamin Person MD Physical Exam HEENT: Normocephalic; atraumatic; no jaundice. CHEST: Resp even/unlabored, OETT to cpap. Diminished bases CARDIAC: RRR ABDOMEN: Soft, nondistended, nontender, no hepatosplenomegaly; bowel sounds are present in all four quadrants. EXTREMITIES: Generalized edema. Edema LUE, wound vac CLIENT SERVICES SPECIALIST: Lethargic, but does follows commands and communicates by writing (Nena Driver) Assessment and Plan Plan ASSESSMENT: - Anemia, Hemoccult positive stools. Never had EGD/Colonoscopy. Has bilateral DVTs, requiring anticoagulation, Xarelto- now on hold. S/P EGD/Colonoscopy (02/22/17)----> 1. Gastritis antrum-biopsy esophagitis distal esophagus-biopsy duodenum normal-biopsy 2. Retroflexed views revealed a hiatal hernia 1. Diverticulosis sigmoid , descending polyp hepatic flexure-two--6 mm sessile-cold snare polypectomy with complete removal another 5 mm-cold biopsy with complete removal polyp sessile decending colon-7 mm-cold snare polypectomy with removal sigmoid-6 mm-cold snare polypectomy with complete removal random biopsies from descenidng colon- 2. Retroflexed views revealed internal hemorrhoids 3. Retroflexed views revealed small internal hemorrhoids 4. Revealed external hemorrhoids. Pathology pending. HH 8.1/24.6. - Abdominal pain. CT abdomen and pelvis without iv contrast (02/19/17)---> areas of calcification seen in the right renal collecting system, right renal pelvis, adn proximal ureter. these appear to layer and be dependent suggesting likely to represent smaller areas of milk of calcium or small stones. There is mild dilatation of th eright renal collecting system and right ureter. A definite obstructing stone at this time is not seen. A small amount of air within hte urinary bladder. This should be correlated with any recent catheterization. Mild bilateral pleural effusions with accompanying atelectasis or consolidation at the left base. the consolidation was present previously. Prominent degenerative change in the lumbar spine and at the hip joints bilaterally. Improved, although lightly sedated. EGD/Colonoscopy as above. IMPROVED. - Nausea, Inability to tolerate po. KUB (02/18/17)---> Normal examination. Device overlies left abdomen. Otherwise unremarkable study. CT/EGD/Colonoscopy as above. IMPROVED. Okay to have PITO once extubated- start with clears and advance as tolerated. - Diarrhea. On abx. CDiff negative S/P EGD/Colonoscopy - Respiratory Insufficiency/Hypoxia. S/P intubation, now on cpap. Possible extubation today. - DVT LE, bilateral. Xarelto/lovenox on hold. WIll resume lovenox - Transverse myelitis, per attending. Zosyn, diflucan, zyvox, per ID - LUE Abscess. S/P I&D with excision of left cephalic vein segment. Wound vac. - BREEZY, improved. Per renal. - HTN, DM, per attending. PLAN: - Okay for clear liquids once extubated and advance as tolerated - Await pathology - Okay to resume Lovenox - Monitor HH - Transfuse as necessary - Supportive care - Further recommendations to follow based on clinical status - Patient seen and examined by Dr. Shepard and myself and this note is written on her behalf. (Nena Driver) Nena Driver Feb 23, 2017 12:07 Jerica Shepard MD Feb 23, 2017 19:21
--- NOTE | 2017-02-23 12:59 | HHI.NPPN ---
Subjective History of Present Illness 61-year-old with history of urinary stone Additional Remarks pt is on O2 Review of Systems General Constitutional: Fatigue Objective Data Data 02/23/17 02/24/17 19:00 07:00 Intake Total 100 ml Balance 100 ml IV Total 100 ml Vital Signs Date Time Temp Pulse Resp B/P (MAP) Pulse Ox O2 Delivery O2 Flow Rate FiO2 02/23/17 11:35 99 Nasal Cannula 2 02/23/17 11:35 99 Nasal Cannula 2.00 02/23/17 11:35 Mechanical Ventilator 02/23/17 10:22 99 40 02/23/17 10:00 69 02/23/17 08:42 65 128/66 02/23/17 08:00 97.8 70 13 160/80 (106) 100 02/23/17 08:00 40 02/23/17 08:00 68 02/23/17 07:44 100 40 02/23/17 07:00 99 Mechanical Ventilator 40 02/23/17 06:00 72 02/23/17 04:21 100 40 02/23/17 04:00 97.7 58 15 136/68 (90) 99 02/23/17 04:00 40 02/23/17 04:00 58 02/23/17 02:00 62 02/23/17 00:23 98 40 02/23/17 00:00 65 02/23/17 00:00 40 02/23/17 00:00 97.6 65 15 141/68 (92) 100 02/22/17 22:00 72 02/22/17 21:41 100 40 02/22/17 20:20 100 40 02/22/17 20:00 40 02/22/17 20:00 74 02/22/17 20:00 97.8 74 20 138/66 (90) 100 02/22/17 19:00 100 Mechanical Ventilator 40 02/22/17 18:00 71 02/22/17 16:00 98.3 68 16 110/56 (74) 99 02/22/17 16:00 40 02/22/17 16:00 68 02/22/17 14:00 76 -: 02/23/17 0405 02/23/17 0405 Physical Exam General Appearance: Pale Neck Neck Exam: Neck Supple Pulmonary Resp Exam: Crackles, Rhonchi, Decreased Bases Cardiology CV Exam: Regular, Normal Sinus Rhythm Gastrointestinal/Abdomen GI Exam: Soft, Non-Tender, Bowel Sounds Present Extremeties Extremities Exam: Moderate Edema Neurologic Neuro Exam: Sedated Assessment/Plan Problem List: (1) Acute renal failure ICD Codes: N17.9 - Acute kidney failure, unspecified Status: Acute Plan: Patient developed Hypotension,sepsis staph aureus respiratory failure and increase WBC. Had aspiration pneumonia, developed sepsis with ARF again creatinine declined slightly post hydration has another event Septic given fluids for now stabilize BP and I will follow renal functions stable UOP 1. 5 L, creatinine 1.7 K low check Mg follow BMP Extubated post EGD/Colonoscopy Diverticulosis (2) CKD (chronic kidney disease) stage 3, GFR 30-59 ml/min ICD Codes: N18.3 - Chronic kidney disease, stage 3 (moderate) Status: Chronic Plan: Ultrasound revealed chronic kidney disease there is no kidney stones (3) Diabetes ICD Codes: E11.9 - Type 2 diabetes mellitus without complications Plan: Continue to monitor (4) Distal end of ulna fracture, closed ICD Codes: S52.609A - Unspecified fracture of lower end of unspecified ulna, initial encounter for closed fracture Status: Acute Plan: Orthopedic is following Problem Qualifiers (1) Acute renal failure: Qualified Codes: N17.9 - Acute kidney failure, unspecified Laura Liao MD Feb 23, 2017 12:59
[2017-02-23] MEDS: SODIUM CHLOR 0.9% 1000 ML INJ 1,000 ML IV SCH (13:00)
[2017-02-23] MEDS ORDERED: DICYCLOMINE HCL 20 MG TAB PO PRN (14:00)
--- NOTE | 2017-02-23 14:11 | HHI.CCPN ---
Subjective Remarks/Hospital Course Date of admission: 01/22 Date of critical care medicine consult 02/10 due to acute hypoxemic respiratory failure requiring emergent intubation 62-year-old male with a past medical history of hypertension, hyperlipidemia, diabetes mellitus, gout, uric acid kidney stones, kidney disease of unknown stage who originally presented to [facility] emergency department on 01/22 after a fall in which he sustained a right distal ulna fracture. He had been experiencing a gradual primarily lower extremity weakness as well as upper extremity weakness that was progressive. Neurology consult was obtained. MRI revealed no acute stroke. He had multifocal white matter changes. Tiny lacunar infarcts of the brainstem. Lumbar MRI report states L4-L5 disc protrusion with cetnral canal stenosis. Dr. Blackwell evaluated and states no cord compression on MRI C/T spine and recommended nonoperative management. Symptoms were felt to be consistent with transverse myelitis and he underwent Solumedrol 250 mg IV q6 hours 01/27-02/02. He also was found to have occlusive thrombus in the bilateral posterior tibial veins. Heparin was being avoided because he had traumatic lumbar puncture on 01/26 and 02/01. IVC filter was placed 01/25. He was undergoing physical therapy, reportedly making some improvements with plan to eventually discharged home with his son (max assist standing, and bed to chair per PT note). Apparently he had some vomiting the evening of 02/09 and additional vomiting on 02/10. He had a fever 102.8 on 02/09. Last recorded bowel movement was 02/03. Tonight he had acute onset of severe hypoxemia and respiratory distress. [facility] called and he was brought emergently to [facility] where his sats were 64% on 100% nonrebreather with mean arterial pressure 44. He was emergently intubated, CVL and art line placed. He is in septic shock. SUBJ: 02/11: Patient remains intubated sedated, critically ill. FiO2 reduced to 80% after increasing PEEP to 12. In severe septic shock Levophed at 16 mcg/m, vasopressin at 0.04 international units. D/W vascular surgery Dr. Enciso. He performed bedside Left upper extremity incision and debridement and excision of septic cephalic vein. 02/12: Remains intubated sedated profoundly septic, in shock on vasopressin and 7 mcg/min Levophed. FiO2 has improved to 45%, WBC count remains elevated with 20 ,000 white count significant left shift. Slight improvement in creatinine 2.9 urine output 750 ml 24 hours. 2-D echo shows LV ejection fraction 20-25%, no vegetation reported. Blood cultures 4 staph aureus. Wound culture pending 02/13: Remains critically ill but stable to improving. WBC count is down to 16, creatinine improving to 2.36. Off all pressors. Urine output also improving. 1.5L in 24 hours 02/14: Extubated 02/13. Tolerating well. WBC now down to 12.8. Creat improving 2.3 to 2. UO 3.4L. remains off all pressors. Was started on Precedex yesterday night for agitation, currently on 0.5 g per KG per hour. Chest x-ray shows left more than right air space disease 02/20/17 Re consult: 62-year-old male who was originally admitted for lower extremity weakness and found to have what was thought to be possible transverse myelitis. His hospital course his included a healthcare associated pneumonia, septic thrombophlebitis, DVT. He was most recently in the hospital floor where he had significant nausea and vomiting and diarrhea. His C. difficile test was recently negative. However, he has experienced worsening acute on chronic renal failure, hypotension, tachycardia, and severe hypoxemia. He did have a bout of vomiting earlier today, and his hospitalist attending suspects that he may have aspirated. He arrives by rapid response to the ICU with a nonrebreather in place in severe respiratory distress with SPO2 of 85%. I emergently intubate the patient, see separate procedure note for details. At this point the patient was hypotensive and tachycardic. He does have a history of an EF of 20%, however clinically he appears in florid septic shock. I placed central line and arterial line started vasopressors and gentle IV fluid resuscitation with 1 L of LR. Patient today was empirically broadened to vancomycin and Zosyn from his oxacillin which was initially treating MSSA bacteremia. He is recultured. Critical-care medicine is consulted to evaluate and manage his worsening multiorgan system failure and decompensated septic shock SUBJ 02/21: Patient remains intubated sedated. Becomes anxious tachypnea on sedation lightening. Chest x-ray shows mild left lower lobe infiltrate. WBC count is slightly improved today from 23.2 t0 21. C Diff negative. UO adequate, creat slightly worsening. 1.57 today 02/22: Remains intubated sedated tolerated CPAP yesterday, plan is for EGD/ Colonscopy. WBC count back to normal. UO adequate. Creat stable 02/23: Tolerating CPAP trials following commands. Will do a spontaneous breathing trials. Status post EGD colonoscopy yesterday -Gastritis, esophagitis. Diverticulosis and multiple polyps. Urine output adequate but creatinine increasing to 1.7 with patient requiring multiple straight catheterization. We'll reinsert Sloan Objective Vital Signs Date Time Temp Pulse Resp B/P (MAP) Pulse Ox O2 Delivery O2 Flow Rate FiO2 02/23/17 11:35 99 Nasal Cannula 2 02/23/17 10:22 40 02/23/17 10:00 69 02/23/17 08:42 128/66 02/23/17 08:00 97.8 13 Intake and Output 02/23/17 02/23/17 02/24/17 08:00 16:00 00:00 Intake Total 1162 ml 100 ml Output Total 900 ml Balance 262 ml 100 ml Result Diagram: 02/23/17 0405 02/23/17 0405 Imaging Last Impressions Chest X-Ray 02/20/17 0000 Signed Impressions: Service Date/Time: Monday, February 20, 2017 12:46 - CONCLUSION: 1. ETT approximately 1.7 cm above the roxanna. Left subclavian central line in proximal SVC. 2. No pneumothorax. 3. Stable trace right pleural effusion and small left pleural effusion with left lower lobe consolidation. Juan Bhakta MD Abdomen/Pelvis CT 02/19/17 0000 Signed Impressions: Service Date/Time: Sunday, February 19, 2017 19:09 - CONCLUSION: 1. Areas of calcification seen in the right renal collecting system, right renal pelvis, and proximal right ureter. These appear to layer and be dependent suggesting likely to represent smaller areas of milk of calcium or small stones. There is mild dilatation of the right renal collecting system and right ureter. A definite obstructing stone at this time is not seen. 2. A small amount of air within the urinary bladder. This should be correlated with any recent catheterization. 3. Mild bilateral pleural effusions with accompanying atelectasis or consolidation at the left base. The consolidation was present previously. 4. Prominent degenerative change in the lumbar spine and at the hip joints bilaterally. Angelo Manzo MD Abdomen X-Ray 02/18/17 Signed Impressions: Service Date/Time: Saturday, February 18, 2017 14:35 - CONCLUSION: Normal examination. Device overlies left upper abdomen. Otherwise unremarkable study. Duy Genao MD Upper Extremity Ultrasound 02/10/17 Signed Impressions: Service Date/Time: Friday, February 10, 2017 18:46 - CONCLUSION: Occlusive thrombus in the cephalic and basilic veins. Benjamin Person MD Lung Scan- Nuclear Medicine 02/10/17 Signed Impressions: Service Date/Time: Friday, February 10, 2017 22:17 - CONCLUSION: Low probability pulmonary embolism. Candido Patton MD Head CT 02/10/17 0000 Signed Impressions: Service Date/Time: Friday, February 10, 2017 23:51 - CONCLUSION: Negative noncontrast CT brain. Candido Patton MD Chest CT 02/10/17 0000 Signed Impressions: Service Date/Time: Friday, February 10, 2017 23:56 - CONCLUSION: Left lower lobe collapse with consolidation. Patchy infiltrates the medial right lower lung. Candido Patton MD Wrist X-Ray 02/06/17 0000 Signed Impressions: Service Date/Time: Monday, February 06, 2017 12:50 - CONCLUSION: Minimally displaced distal radius and ulnar fractures. Armando Dodd MD Lumbar Puncture Fluoroscopy 02/01/17 0000 Signed Impressions: Service Date/Time: January 09:35 - CONCLUSION: Uncomplicated fluoroscopically guided lumbar puncture. CSF was clear. Nabeel Peralta MD Head Magnetic Resonance Angiography 01/27/17 0000 Signed Impressions: Service Date/Time: Friday, January 27, 2017 10:33 - CONCLUSION: No intracranial vascular abnormality is identified. There is no aneurysm visualized. Angelo Allen MD IVC Filter Placement X-Ray 01/25/17 0000 Signed Impressions: Service Date/Time: January 10:29 - CONCLUSION: Uncomplicated inferior vena cava filter placement as above. Yung Fowler MD Thoracic Spine MRI 01/24/17 Signed Impressions: Service Date/Time: Tuesday, January 24, 2017 22:29 - CONCLUSION: 1. Mild degenerative spondylosis most prominently at T11-L1 with slight effacement of the anterior thecal sac and left lateral recess. No significant neural foraminal stenosis. 2. No acute fracture. Juan Bhakta MD Renal Ultrasound 01/23/17 Signed Impressions: Service Date/Time: Monday, January 23, 2017 08:53 - CONCLUSION: 1. Evidence of chronic parenchymal disease of both kidneys. No obstructive uropathy or other acute abnormality demonstrated. 2. Trace ascites, nonspecific. Angelo Garrido MD Lumbar Spine MRI 01/23/17 Signed Impressions: Service Date/Time: Monday, January 23, 2017 17:01 - CONCLUSION: 1. At L4-5 is a broad-based disc protrusion with severe central canal and lateral recess stenosis and flattening of the exiting right L4 nerve root. 2. L5-S1 there is a disc protrusion and moderate stenosis with flattening of the exiting L5 nerve roots bilaterally. 3. At L3-4 there is a moderate to severe central stenosis and lateral recess stenosis with mild foraminal stenosis. 4. No acute fracture or spondylolisthesis. Trace Holloway MD Lower Extremity Ultrasound 01/23/17 Signed Impressions: Service Date/Time: Monday, January 23, 2017 09:53 - CONCLUSION: Bilateral focal lower extremity DVT involving the posterior tibial veins. Angelo Garrido MD Cervical Spine MRI 01/23/17 Signed Impressions: Service Date/Time: Monday, January 23, 2017 17:01 - CONCLUSION: 1. Multilevel cervical spine degenerative changes as above. 2. Mild degrees of spinal stenosis at C3/C4-C6/C7. No cord compression or cord signal abnormality. 3. Age indeterminate left paracentral/foraminal disc protrusion at C6/C7. 4. Multilevel foraminal stenosis, most severe on the left at C6/C7. Please see individual levels above. 5. No fracture or subluxation of the cervical spine. Angelo Garrido MD Brain MRI 01/23/17 Signed Impressions: Service Date/Time: Monday, January 23, 2017 17:01 - CONCLUSION: 1. No acute stroke or other acute intracranial abnormality demonstrated. 2. Moderate severity chronic white matter changes, nonspecific but most likely related to chronic small vessel disease. 3. Few scattered tiny lacunar infarcts of the brainstem. 4. Given the findings are not entirely specific, clinical evaluation for possible multiple sclerosis recommended. Angelo Garrido MD Knee X-Ray 01/22/172053 Signed Impressions: Service Date/Time: Sunday, January 22, 2017 21:17 - CONCLUSION: 1. Evidence of moderate to large joint effusion. 2. No acute fracture or malalignment. 3. Mild 3 compartment osteoarthritic change. Benjamin Person MD Hip and Pelvis X-Ray 01/22/172053 Signed Impressions: Service Date/Time: Sunday, January 22, 2017 21:10 - CONCLUSION: 1. Mild to moderate degenerative change of both hips with no acute fracture or malalignment. There is flattening and remodeling of the right humeral head. Benjamin Person MD Objective Remarks GENERAL: Middle-aged male, lying in bed, intubated off all sedation HEENT: Normocephalic. Atraumatic. Pupils equal, round, reactive, conjugate. Orotracheally intubated NECK: Trachea is midline. There is no JVD. CHEST: Air entry equal bilaterally with coarse rhonchi CARDIOVASCULAR: S1-S2 normal no murmurs ABDOMEN: Soft, nontender, nondistended. No guarding. MUSCULOSKELETAL: Pulses 2+. No peripheral edema. NEUROLOGICAL: Intubated, not on sedation 4 out of 5 power in upper extremities, 3 out of 5 in the lower extremities Procedures IVC filter placement 01/25/2017 LP 01/26/2017 A/P Problem List: (1) Septic shock ICD Code: A41.9 - Sepsis, unspecified organism; R65.21 - Severe sepsis with septic shock Status: Acute (2) Acute respiratory failure ICD Code: J96.00 - Acute respiratory failure, unspecified whether with hypoxia or hypercapnia Status: Acute (3) Thrombophlebitis arm ICD Code: I80.8 - Phlebitis and thrombophlebitis of other sites (4) Aspiration pneumonia ICD Code: J69.0 - Pneumonitis due to inhalation of food and vomit Status: Acute (5) Atelectasis of left lung ICD Code: J98.11 - Atelectasis Status: Acute (6) Quadriparesis ICD Code: G82.50 - Quadriplegia, unspecified Status: Acute (7) DVT (deep venous thrombosis) ICD Code: I82.409 - Acute embolism and thrombosis of unspecified deep veins of unspecified lower extremity (8) Altered mental status ICD Code: R41.82 - Altered mental status, unspecified Status: Acute (9) CKD (chronic kidney disease) stage 3, GFR 30-59 ml/min ICD Code: N18.3 - Chronic kidney disease, stage 3 (moderate) Status: Chronic (10) Acute renal failure ICD Code: N17.9 - Acute kidney failure, unspecified Status: Acute (11) Diabetes mellitus ICD Code: E11.9 - Type 2 diabetes mellitus without complications Status: Chronic (12) Distal end of ulna fracture, closed ICD Code: S52.609A - Unspecified fracture of lower end of unspecified ulna, initial encounter for closed fracture Status: Acute (13) Gout ICD Code: M10.9 - Gout, unspecified Status: Chronic Assessment and Plan Assessment: 62yM with now acute and worsening septic shock and associated multi organ system failure including acute hypoxic respiratory failure, acute kidney injury. Likely secondary to healthcare associated pneumonia. Recent diarrhea, but C. Diff negative. Appreciate ID repeat cultures, continue ABX. Hospital associated aspiration pneumonia is most likely source. Remains critically ill NEURO: Acute metabolic encephalopathy Quadriparesis secondary to suspected transverse myelitis Recurrent falls Suspected transverse myelitis. Received Solu-Medrol 250 mg IV every 6 hours 01/27- 02/02, started back on hydrocortisone 02/21/17, will start tapering LP 01/26 and 02/01. CSF culture negative 01/26, 02/01 Oligoclonal bands negative. CSF/serum IgG index is not elevated. VDRL nonreactive. Cryptococcal antigen negative. Brain MRI 01/23 no acute stroke. Few scattered lacunar infarcts of the brainstem. Moderate chronic white matter changes. MRI cervical/thoracic spine- mild spinal stenosis 3C3/C4 to C6/C7. No cord compression. RPR negative Neurology has been following, Dr. Crenshaw. Repeat CT brain 02/10 - negative Continue PT/OT Hold all sedation for possible extubation RESP: Acute hypoxemic respiratory failure Healthcare associated pneumonia/Aspiration Pneumonia Intubated emergently 02/10. Extubated 02/13/17. Reintubated 02/20 for acute hypoxemia. SBT with possible extubation today 02/23 vent bundle, hob at 30 degrees, nebs, send sputum culture VQ scan 02/10 low probability for PE. CT chest02/10 - left lower lobe collapse and consolidation. Right lower lobe infiltrate. CXR 02/21. mild LLL infiltrate If respiratory failure recurrent due to neuromuscular weakness/transverse myelitis patient may need tracheostomy CV: Septic shock-resolved Cardiomyopathy with ejection fraction 20-25% Hyperlipidemia History of hypertension Holding metoprolol and Norvasc. Continue statin. GI: Severe protein energy malnutrition Nausea/vomiting Diarrhea CT abdomen and pelvis 02/10 atrophic left kidney. Bilateral inguinal hernias fat- containing. Nonobstructing 12 mm right kidney stone repeat CT abd/pelvis did not show evidence of obstruction. patient clinically has been having diarrhea (c. diff negative 02/19). also with nausea/vomiting of unclear etiology. EGD/Colonoscopy-02/22/17 showed gastritis esophagitis diverticulosis and multiple polyps. Biopsy pending FEN/RENAL: Acute kidney injury Chronic kidney disease stage 3-4 History of uric acid kidney stones with prior stent Re insert Sloan due to urinary retention and worsening creatinine. Monitor intake and output q1hr. Monitor electrolytes. RIOS/SPEP negative. Nephrology following. Continue gentle hydration ID: Septic shock-resolved Abscess and Suppurative thrombophlebitis left upper extremity MSSA bacteremia Acute aspiration pneumonia/HCAP Broad-spectrum antibiotics with vanc/zosyn ID on board. f/u cultures form 02/20/17 blood, sputum, urine cultures-all negative to date HEME: DVT, bilateral posterior tibial vein, IVC filter Septic thrombophlebitis with occlusive thrombus mid cephalic and basilic vein Ultrasound 01/23/17 - Bilateral lower extremity with occlusive posterior tibial vein DVTs. Heparin was initially started for DVT but was placed on hold due to LP with suspected traumatic tap. now back on full anticoagulation with Lovenox. IVC filter was placed 01/25/17. Ultrasound LUE 02/10 occlusive thrombus mid cephalic vein, basilic vein. ENDO: Diabetes mellitus Hypoglycemia History of prior adrenal insufficiency with shock EGD colonoscopy completed 02/22. gastritis and esophagitis, colon polyps Started Hydrocortisone 100 mg IV q8hr 02/21/17 (Recent high dose steroids use now hypotensive, hypoglycemic) Reduce HC to 50 q8 q4h accuchecks. MSK: Right distal ulna fracture. Dr. Nathan with orthopedics has evaluated and recommended nonoperative management. Right wrist splint in place. Gout PROPH: Famotidine for stress ulcer prophylaxis. Has IVC filter. therapeutic lovenox. ACCESS: s/p art line, central line. Dispo: admit to ICU. very critically ill. Level 3 Problem Qualifiers (1) Aspiration pneumonia: (2) DVT (deep venous thrombosis): Qualified Codes: I82.443 - Acute embolism and thrombosis of tibial vein, bilateral (3) Acute renal failure: Qualified Codes: N17.9 - Acute kidney failure, unspecified (4) Diabetes mellitus: (5) Gout: Antonietta Stephens MD Feb 23, 2017 14:11
[2017-02-23] MEDS: hydrALAZINE HCL 20 MG/ML VIAL IV PUSH PRN (14:53)
[2017-02-23] MEDS: OXACILLIN INJ 2 GM in SODIUM CHLORIDE 0.9% INJ 100 ML IV SCH ×4 (14:54→23:09)
--- NOTE | 2017-02-23 15:44 | PD.WCN.NOT ---
Wound Consult Description: Follow up of sacral Stage IV pressure injury. Communicated with: ROHINI Alfaro Recommendation: OBTAIN AND PLACE PATIENT ON WAVE OR ADVANCED IV SPECIALTY SURFACE AND CONTINUE TO REPOSITION PATIENT EVERY 2 HOURS AND PRN FOR COMFORT. Continue to apply Calazime skin protectant BID and PRN to sacrum and bilateral buttocks. Additional Information: Patient seen on 3 for follow up of wound evaluation of sacrum. Patient was assisted to his left side for assessment. Patient was noted to be lying on a soiled brief, 2 ultrasorbs, and a cloth pull pad. Wound on sacrum has a new full thickness wound within the periwound, with wounds almost touching each other, on the right buttock. Wounds were measured as one wound 11cm x 1.5cm x 0.4cm. There is ~20% fascia noted in the sacral wound surrounded by ~40% pink and ~40% red non granulating tissue within the wound bed without drainage and without odor. Wound margins are open, sharp, and jagged (indicating moisture and friction) with purple non blanching periwound, indicating a deep tissue injury that is new. Right buttock wound <1cm away from sacral wound is full thickness and extending down the right buttock in the shape of a line with a length of ~9.5cm and measuring no wider than 1.5cm with a depth of ~0.4cm with jagged wound margins, no active drainage and not odor. Periwound is noted with purple non blanching discoloration on the lateral side of the wound bed within the perwiound. Distally noted on the bilateral buttocks are multiple areas of bright red shiny partial thickness skin loss areas that present as Incontinence Associated Dermatitis. It was strongly recommended that the patient not be in a brief and on 3 pads for incontinence. ROHINI Alfaro states that the patient had a fecal containment system prior and will be having a palmer catheter inserted today. Patient refuses all specialty surfaces. It is still recommended that patient be placed on a WAVE or Advanced IV specialty surface and repositioned every 2 hours and PRN for comfort. It was also recommended that patient continue to have Calazime skin protectant applied BID and PRN until moisture related issues have resolved so that a dressing can be placed over sacral pressure injury. ROHINI Alfaro states that she can perform wound VAC dressing change on patient left arm. Supplies were in the room and available. Juana Osman [facility] Feb 23, 2017 15:44
[2017-02-23] MEDS: ATORVASTATIN 10 MG TAB PO SCH (19:51)
[2017-02-23] MEDS: FAMOTIDINE 20 MG/2 ML VIAL IV PUSH SCH (19:52)
[2017-02-23] MEDS: ACETAMINOPHEN/HYDROcodone 325 MG/7.5 MG TAB PO PRN (21:54)
[2017-02-23] MEDS: ENOXAPARIN SODIUM 100 MG/ML SYRINGE SQ SCH (23:10)
[2017-02-24] VITALS (14 sets, daily range): BP systolic 149–176; BP diastolic 82–86; PULSE 70–92; RESP 13–15; TEMP 97.7–98.2; O2SAT 92–100
[2017-02-24] MEDS: OXACILLIN INJ 2 GM in SODIUM CHLORIDE 0.9% INJ 100 ML IV SCH ×6 (03:23→23:02)
[2017-02-24] MEDS: INSULIN NovoLIN REGULAR SUPPLEMENTAL SCALE SQ SCH ×6 (03:35→23:29)
--- NOTE | 2017-02-24 04:32 | RADRPT ---
EXAM DATE/TIME: 02/24/2017 03:58 [facility] COMPARISON: CHEST SINGLE AP, February 21, 2017, 4:12. INDICATIONS : Shortness of breath, Sepsis MEDICAL HISTORY : Sepsis. Hypertension Renal calculi. SURGICAL HISTORY : IVC filter ENCOUNTER: Subsequent ACUITY: 1 month PAIN SCORE: 7/10 LOCATION: Bilateral chest FINDINGS: A single portable frontal view of the chest shows interval extubation and removal of the nasogastric tube. Left subclavian central line remains. Left lower lobe intraalveolar infiltrate with small left effusion is unchanged. Right lung is clear. Heart is normal in size. CONCLUSION: 1. Unchanged left lower lobe infiltrate with small effusion. Candido Mendoza Jr., MD on February 24, 2017 at 4:29 Board Certified Radiologist. This report was verified electronically.
[2017-02-24] MEDS: RESP: ALBUTEROL 2.5 MG/IPRATROPIUM 0.5 MG NEB (SCH) INH ×2 (04:50→09:56)
[2017-02-24] MEDS: HYDROCORTISONE SOD SUCCINATE 100 MG VIAL IV SCH ×3 (05:18→20:32)
[2017-02-24] MEDS: POTASSIUM PHOSPHATE/SODIUM PHOSPHATE 250 MG TAB PO SCH ×3 (05:18→20:31)
[2017-02-24 06:05] LABS: AUTOMATED NEUTROPHIL # 6.4 TH/MM3 (1.8-7.7); BASOPHIL % 0.2 % (0.0-2.0); HEMATOCRIT 25.2 % (39.0-51.0); HEMO FLAGS DIFF FINAL; LYMPHOCYTE # 0.4 TH/MM3 (1.0-4.8); MEAN CELL VOLUME 82.9 FL (80.0-100.0); MEAN CORPUSCULAR HEMOGLOBIN 26.9 PG (27.0-34.0); MEAN CORPUSCULAR HGB CONC 32.4 % (32.0-36.0); MONO % 7.2 % (0.0-8.0); NEUT % 86.6 % (16.0-70.0); PLATELET COUNT 182 TH/MM3 (150-450); RED BLOOD COUNT 3.03 MIL/MM3 (4.50-5.90); RED CELL DISTRIBUTION WIDTH 19.1 % (11.6-17.2); WHITE BLOOD COUNT 7.4 TH/MM3 (4.0-11.0)
[2017-02-24 06:19] LABS: CALCIUM-PROTEIN CORRECTED 8.4 MG/DL (8.5-10.1); MAGNESIUM 1.8 MG/DL (1.5-2.5); POTASSIUM 3.1 MEQ/L (3.5-5.1); TOTAL BILIRUBIN ADULT 0.1 MG/DL (0.2-1.0)
[2017-02-24] MEDS: POTASSIUM CHLOR 40 MEQ PREMIX 100 ML IV PRN ×2 (06:36→09:16)
[2017-02-24] MEDS: VASOPRESSIN INJ 40 UNITS in DEXTROSE 5% IN WATER 100ML INJ 98 ML IV SCH ×2 (06:56)
[2017-02-24] MEDS: CHLORHEXIDINE 0.12% (ORAL KIT) 15 ML CUP MT SCH ×2 (08:00→20:00)
--- NOTE | 2017-02-24 08:21 | HHI.CCPN ---
Subjective Remarks/Hospital Course Date of admission: 01/22 Date of critical care medicine consult 02/10 due to acute hypoxemic respiratory failure requiring emergent intubation 62-year-old male with a past medical history of hypertension, hyperlipidemia, diabetes mellitus, gout, uric acid kidney stones, kidney disease of unknown stage who originally presented to [facility] emergency department on 01/22 after a fall in which he sustained a right distal ulna fracture. He had been experiencing a gradual primarily lower extremity weakness as well as upper extremity weakness that was progressive. Neurology consult was obtained. MRI revealed no acute stroke. He had multifocal white matter changes. Tiny lacunar infarcts of the brainstem. Lumbar MRI report states L4-L5 disc protrusion with cetnral canal stenosis. Dr. Blackwell evaluated and states no cord compression on MRI C/T spine and recommended nonoperative management. Symptoms were felt to be consistent with transverse myelitis and he underwent Solumedrol 250 mg IV q6 hours 01/27-02/02. He also was found to have occlusive thrombus in the bilateral posterior tibial veins. Heparin was being avoided because he had traumatic lumbar puncture on 01/26 and 02/01. IVC filter was placed 01/25. He was undergoing physical therapy, reportedly making some improvements with plan to eventually discharged home with his son (max assist standing, and bed to chair per PT note). Apparently he had some vomiting the evening of 02/09 and additional vomiting on 02/10. He had a fever 102.8 on 02/09. Last recorded bowel movement was 02/03. Tonight he had acute onset of severe hypoxemia and respiratory distress. [facility] called and he was brought emergently to [facility] where his sats were 64% on 100% nonrebreather with mean arterial pressure 44. He was emergently intubated, CVL and art line placed. He is in septic shock. SUBJ: 02/11: Patient remains intubated sedated, critically ill. FiO2 reduced to 80% after increasing PEEP to 12. In severe septic shock Levophed at 16 mcg/m, vasopressin at 0.04 international units. D/W vascular surgery Dr. Enciso. He performed bedside Left upper extremity incision and debridement and excision of septic cephalic vein. 02/12: Remains intubated sedated profoundly septic, in shock on vasopressin and 7 mcg/min Levophed. FiO2 has improved to 45%, WBC count remains elevated with 20 ,000 white count significant left shift. Slight improvement in creatinine 2.9 urine output 750 ml 24 hours. 2-D echo shows LV ejection fraction 20-25%, no vegetation reported. Blood cultures 4 staph aureus. Wound culture pending 02/13: Remains critically ill but stable to improving. WBC count is down to 16, creatinine improving to 2.36. Off all pressors. Urine output also improving. 1.5L in 24 hours 02/14: Extubated 02/13. Tolerating well. WBC now down to 12.8. Creat improving 2.3 to 2. UO 3.4L. remains off all pressors. Was started on Precedex yesterday night for agitation, currently on 0.5 g per KG per hour. Chest x-ray shows left more than right air space disease 02/20/17 Re consult: 62-year-old male who was originally admitted for lower extremity weakness and found to have what was thought to be possible transverse myelitis. His hospital course his included a healthcare associated pneumonia, septic thrombophlebitis, DVT. He was most recently in the hospital floor where he had significant nausea and vomiting and diarrhea. His C. difficile test was recently negative. However, he has experienced worsening acute on chronic renal failure, hypotension, tachycardia, and severe hypoxemia. He did have a bout of vomiting earlier today, and his hospitalist attending suspects that he may have aspirated. He arrives by rapid response to the ICU with a nonrebreather in place in severe respiratory distress with SPO2 of 85%. I emergently intubate the patient, see separate procedure note for details. At this point the patient was hypotensive and tachycardic. He does have a history of an EF of 20%, however clinically he appears in florid septic shock. I placed central line and arterial line started vasopressors and gentle IV fluid resuscitation with 1 L of LR. Patient today was empirically broadened to vancomycin and Zosyn from his oxacillin which was initially treating MSSA bacteremia. He is recultured. Critical-care medicine is consulted to evaluate and manage his worsening multiorgan system failure and decompensated septic shock SUBJ 02/21: Patient remains intubated sedated. Becomes anxious tachypnea on sedation lightening. Chest x-ray shows mild left lower lobe infiltrate. WBC count is slightly improved today from 23.2 t0 21. C Diff negative. UO adequate, creat slightly worsening. 1.57 today 02/22: Remains intubated sedated tolerated CPAP yesterday, plan is for EGD/ Colonscopy. WBC count back to normal. UO adequate. Creat stable 02/23: Tolerating CPAP trials following commands. Will do a spontaneous breathing trials. Status post EGD colonoscopy yesterday -Gastritis, esophagitis. Diverticulosis and multiple polyps. Urine output adequate but creatinine increasing to 1.7 with patient requiring multiple straight catheterization. We'll reinsert Sloan. 02/24: Breathing comfortably 24 hours after extubation. Protects airway well. Objective Vital Signs Date Time Temp Pulse Resp B/P (MAP) Pulse Ox O2 Delivery O2 Flow Rate FiO2 02/24/17 06:56 71 149/83 02/24/17 04:00 97.9 15 96 02/23/17 20:58 Nasal Cannula 2.00 02/23/17 10:22 40 Intake and Output 02/24/17 02/24/17 02/25/17 08:00 16:00 00:00 Intake Total 996 ml Output Total 735 ml Balance 261 ml Result Diagram: 02/24/17 0548 02/24/17 0548 Imaging Last Impressions Chest X-Ray 02/20/17 0000 Signed Impressions: Service Date/Time: Monday, February 20, 2017 12:46 - CONCLUSION: 1. ETT approximately 1.7 cm above the roxanna. Left subclavian central line in proximal SVC. 2. No pneumothorax. 3. Stable trace right pleural effusion and small left pleural effusion with left lower lobe consolidation. Juan Bhakta MD Abdomen/Pelvis CT 02/19/17 0000 Signed Impressions: Service Date/Time: Sunday, February 19, 2017 19:09 - CONCLUSION: 1. Areas of calcification seen in the right renal collecting system, right renal pelvis, and proximal right ureter. These appear to layer and be dependent suggesting likely to represent smaller areas of milk of calcium or small stones. There is mild dilatation of the right renal collecting system and right ureter. A definite obstructing stone at this time is not seen. 2. A small amount of air within the urinary bladder. This should be correlated with any recent catheterization. 3. Mild bilateral pleural effusions with accompanying atelectasis or consolidation at the left base. The consolidation was present previously. 4. Prominent degenerative change in the lumbar spine and at the hip joints bilaterally. Angeol Manzo MD Abdomen X-Ray 02/18/17 Signed Impressions: Service Date/Time: Saturday, February 18, 2017 14:35 - CONCLUSION: Normal examination. Device overlies left upper abdomen. Otherwise unremarkable study. Duy Genao MD Upper Extremity Ultrasound 02/10/17 Signed Impressions: Service Date/Time: Friday, February 10, 2017 18:46 - CONCLUSION: Occlusive thrombus in the cephalic and basilic veins. Benjamin Person MD Lung Scan-V Nuclear Medicine 02/10/17 Signed Impressions: Service Date/Time: Friday, February 10, 2017 22:17 - CONCLUSION: Low probability pulmonary embolism. Candido Patton MD Head CT 02/10/17 Signed Impressions: Service Date/Time: Friday, February 10, 2017 23:51 - CONCLUSION: Negative noncontrast CT brain. Candido Patton MD Chest CT 02/10/17 Signed Impressions: Service Date/Time: Friday, February 10, 2017 23:56 - CONCLUSION: Left lower lobe collapse with consolidation. Patchy infiltrates the medial right lower lung. Candido Patton MD Wrist X-Ray 02/06/17 Signed Impressions: Service Date/Time: Monday, February 06, 2017 12:50 - CONCLUSION: Minimally displaced distal radius and ulnar fractures. Armando Dodd MD Lumbar Puncture Fluoroscopy 02/01/17 Signed Impressions: Service Date/Time: January 09:35 - CONCLUSION: Uncomplicated fluoroscopically guided lumbar puncture. CSF was clear. Nabeel Peralta MD Head Magnetic Resonance Angiography 01/27/17 Signed Impressions: Service Date/Time: Friday, January 27, 2017 10:33 - CONCLUSION: No intracranial vascular abnormality is identified. There is no aneurysm visualized. Angelo Allen MD IVC Filter Placement X-Ray 01/25/17 Signed Impressions: Service Date/Time: January 10:29 - CONCLUSION: Uncomplicated inferior vena cava filter placement as above. Yung Fowler MD Thoracic Spine MRI 01/24/17 Signed Impressions: Service Date/Time: Tuesday, January 24, 2017 22:29 - CONCLUSION: 1. Mild degenerative spondylosis most prominently at T11-L1 with slight effacement of the anterior thecal sac and left lateral recess. No significant neural foraminal stenosis. 2. No acute fracture. Juan Bhakta MD Renal Ultrasound 01/23/17 Signed Impressions: Service Date/Time: Monday, January 23, 2017 08:53 - CONCLUSION: 1. Evidence of chronic parenchymal disease of both kidneys. No obstructive uropathy or other acute abnormality demonstrated. 2. Trace ascites, nonspecific. Angelo Garrido MD Lumbar Spine MRI 01/23/17 Signed Impressions: Service Date/Time: Monday, January 23, 2017 17:01 - CONCLUSION: 1. At L4-5 is a broad-based disc protrusion with severe central canal and lateral recess stenosis and flattening of the exiting right L4 nerve root. 2. L5-S1 there is a disc protrusion and moderate stenosis with flattening of the exiting L5 nerve roots bilaterally. 3. At L3-4 there is a moderate to severe central stenosis and lateral recess stenosis with mild foraminal stenosis. 4. No acute fracture or spondylolisthesis. Trace Holloway MD Lower Extremity Ultrasound 01/23/17 Signed Impressions: Service Date/Time: Monday, January 23, 2017 09:53 - CONCLUSION: Bilateral focal lower extremity DVT involving the posterior tibial veins. Angelo Garrido MD Cervical Spine MRI 01/23/17 Signed Impressions: Service Date/Time: Monday, January 23, 2017 17:01 - CONCLUSION: 1. Multilevel cervical spine degenerative changes as above. 2. Mild degrees of spinal stenosis at C3/C4-C6/C7. No cord compression or cord signal abnormality. 3. Age indeterminate left paracentral/foraminal disc protrusion at C6/C7. 4. Multilevel foraminal stenosis, most severe on the left at C6/C7. Please see individual levels above. 5. No fracture or subluxation of the cervical spine. Angelo Garrido MD Brain MRI 01/23/17 Signed Impressions: Service Date/Time: Monday, January 23, 2017 17:01 - CONCLUSION: 1. No acute stroke or other acute intracranial abnormality demonstrated. 2. Moderate severity chronic white matter changes, nonspecific but most likely related to chronic small vessel disease. 3. Few scattered tiny lacunar infarcts of the brainstem. 4. Given the findings are not entirely specific, clinical evaluation for possible multiple sclerosis recommended. Angelo Garrido MD Knee X-Ray 01/22/172053 Signed Impressions: Service Date/Time: Sunday, January 22, 2017 21:17 - CONCLUSION: 1. Evidence of moderate to large joint effusion. 2. No acute fracture or malalignment. 3. Mild 3 compartment osteoarthritic change. Benjamin Person MD Hip and Pelvis X-Ray 01/22/172053 Signed Impressions: Service Date/Time: Sunday, January 22, 2017 21:10 - CONCLUSION: 1. Mild to moderate degenerative change of both hips with no acute fracture or malalignment. There is flattening and remodeling of the right humeral head. Benjamin Person MD Objective Remarks GENERAL: Middle-aged male, lying in bed, intubated off all sedation HEENT: Normocephalic. Atraumatic. Pupils equal, round, reactive, conjugate. Orotracheally intubated NECK: Trachea is midline. Airway widely patent. CHEST: Air entry equal bilaterally, clear, comfortable pattern CARDIOVASCULAR: S1-S2 normal no murmurs. No JVD. ABDOMEN: Soft, nontender, nondistended. No guarding. MUSCULOSKELETAL: Pulses 2+. No peripheral edema. Warm, well perfused. NEUROLOGICAL: 4 out of 5 power in upper extremities, 3 out of 5 in the lower extremities Procedures IVC filter placement 01/25/2017 LP 01/26/2017 A/P Problem List: (1) Septic shock ICD Code: A41.9 - Sepsis, unspecified organism; R65.21 - Severe sepsis with septic shock Status: Acute (2) Acute respiratory failure ICD Code: J96.00 - Acute respiratory failure, unspecified whether with hypoxia or hypercapnia Status: Acute (3) Thrombophlebitis arm ICD Code: I80.8 - Phlebitis and thrombophlebitis of other sites (4) Aspiration pneumonia ICD Code: J69.0 - Pneumonitis due to inhalation of food and vomit Status: Acute (5) Atelectasis of left lung ICD Code: J98.11 - Atelectasis Status: Acute (6) Quadriparesis ICD Code: G82.50 - Quadriplegia, unspecified Status: Acute (7) DVT (deep venous thrombosis) ICD Code: I82.409 - Acute embolism and thrombosis of unspecified deep veins of unspecified lower extremity (8) Altered mental status ICD Code: R41.82 - Altered mental status, unspecified Status: Acute (9) CKD (chronic kidney disease) stage 3, GFR 30-59 ml/min ICD Code: N18.3 - Chronic kidney disease, stage 3 (moderate) Status: Chronic (10) Acute renal failure ICD Code: N17.9 - Acute kidney failure, unspecified Status: Acute (11) Diabetes mellitus ICD Code: E11.9 - Type 2 diabetes mellitus without complications Status: Chronic (12) Distal end of ulna fracture, closed ICD Code: S52.609A - Unspecified fracture of lower end of unspecified ulna, initial encounter for closed fracture Status: Acute (13) Gout ICD Code: M10.9 - Gout, unspecified Status: Chronic Assessment and Plan Assessment: 62yM with now acute and worsening septic shock and associated multi organ system failure including acute hypoxic respiratory failure, acute kidney injury. Likely secondary to healthcare associated pneumonia. Recent diarrhea, but C. Diff negative. Appreciate ID repeat cultures, continue ABX. Hospital associated aspiration pneumonia is most likely source. Remains critically ill NEURO: Acute metabolic encephalopathy Quadriparesis secondary to suspected transverse myelitis Recurrent falls Suspected transverse myelitis. Received Solu-Medrol 250 mg IV every 6 hours 01/27- 02/02, started back on hydrocortisone 02/21/17, will start tapering LP 01/26 and 02/01. CSF culture negative 01/26, 02/01 Oligoclonal bands negative. CSF/serum IgG index is not elevated. VDRL nonreactive. Cryptococcal antigen negative. Brain MRI 01/23 no acute stroke. Few scattered lacunar infarcts of the brainstem. Moderate chronic white matter changes. MRI cervical/thoracic spine- mild spinal stenosis 3C3/C4 to C6/C7. No cord compression. RPR negative Neurology has been following, Dr. Crenshaw. Repeat CT brain 02/10 - negative Continue PT/OT No sedation. RESP: Acute hypoxemic respiratory failure Healthcare associated pneumonia/Aspiration Pneumonia Intubated emergently 02/10. Extubated 02/13/17. Reintubated 02/20 for acute hypoxemia. SBT with possible extubation today 02/23 vent bundle, hob at 30 degrees, nebs, send sputum culture VQ scan 02/10 low probability for PE. CT chest02/10 - left lower lobe collapse and consolidation. Right lower lobe infiltrate. CXR 02/21. mild LLL infiltrate Extubated 02/23. CV: Septic shock-resolved Cardiomyopathy with ejection fraction 20-25% Hyperlipidemia History of hypertension Holding metoprolol and Norvasc. Continue statin. GI: Severe protein energy malnutrition Nausea/vomiting Diarrhea CT abdomen and pelvis 02/10 atrophic left kidney. Bilateral inguinal hernias fat- containing. Nonobstructing 12 mm right kidney stone repeat CT abd/pelvis did not show evidence of obstruction. patient clinically has been having diarrhea (c. diff negative 02/19). also with nausea/vomiting of unclear etiology. EGD/Colonoscopy-02/22/17 showed gastritis esophagitis diverticulosis and multiple polyps. Biopsy pending FEN/RENAL: Acute kidney injury Chronic kidney disease stage 3-4 History of uric acid kidney stones with prior stent Re insert Sloan due to urinary retention and worsening creatinine. Monitor intake and output q1hr. Monitor electrolytes. RIOS/SPEP negative. Nephrology following. Continue gentle hydration ID: Septic shock-resolved Abscess and Suppurative thrombophlebitis left upper extremity MSSA bacteremia Acute aspiration pneumonia/HCAP Broad-spectrum antibiotics with vanc/zosyn ID on board. f/u cultures form 02/20/17 blood, sputum, urine cultures-all negative to date HEME: DVT, bilateral posterior tibial vein, IVC filter Septic thrombophlebitis with occlusive thrombus mid cephalic and basilic vein Ultrasound 01/23/17 - Bilateral lower extremity with occlusive posterior tibial vein DVTs. Heparin was initially started for DVT but was placed on hold due to LP with suspected traumatic tap. now back on full anticoagulation with Lovenox. IVC filter was placed 01/25/17. Ultrasound LUE 02/10 occlusive thrombus mid cephalic vein, basilic vein. ENDO: Diabetes mellitus Hypoglycemia History of prior adrenal insufficiency with shock EGD colonoscopy completed 02/22. gastritis and esophagitis, colon polyps Started Hydrocortisone 100 mg IV q8hr 02/21/17 (Recent high dose steroids use now hypotensive, hypoglycemic) Reduce HC to 50 q8 q4h accuchecks. MSK: Right distal ulna fracture. Dr. Nathan with orthopedics has evaluated and recommended nonoperative management. Right wrist splint in place. Gout PROPH: Famotidine for stress ulcer prophylaxis. Has IVC filter. Therapeutic lovenox. ACCESS: s/p art line, central line. Overall impression: Stable respiratory status after extubation. Problem Qualifiers (1) Aspiration pneumonia: (2) DVT (deep venous thrombosis): Qualified Codes: I82.443 - Acute embolism and thrombosis of tibial vein, bilateral (3) Acute renal failure: Qualified Codes: N17.9 - Acute kidney failure, unspecified (4) Diabetes mellitus: (5) Gout: Nic West MD Feb 24, 2017 08:21
[2017-02-24] MEDS: DOCUSATE SODIUM 50 MG/SENNA 8.6 MG TAB PO SCH ×2 (09:00→20:31)
[2017-02-24] MEDS: LACTOBACILLUS ACIDOPHILUS TAB PO SCH ×3 (09:08→17:17)
[2017-02-24] MEDS: TAMSULOSIN HCL 0.4 MG CAP PO SCH ×2 (09:08→20:31)
[2017-02-24] MEDS: SODIUM CHLORIDE 0.9% FLUSH 10 ML FLUSH IV FLUSH SCH ×2 (09:08→20:30)
[2017-02-24] MEDS: ENOXAPARIN SODIUM 100 MG/ML SYRINGE SQ SCH ×2 (13:15→23:02)
[2017-02-24] MEDS: SODIUM CHLOR 0.9% 1000 ML INJ 1,000 ML IV SCH (13:20)
--- NOTE | 2017-02-24 14:07 | HHI.NPPN ---
Subjective History of Present Illness 61-year-old with history of urinary stone Additional Remarks Patient is alert, no SOB, started eating some, not in distress. Review of Systems General Constitutional: Fatigue Objective Data Data Vital Signs Date Time Temp Pulse Resp B/P (MAP) Pulse Ox O2 Delivery O2 Flow Rate FiO2 02/24/17 09:58 97 Nasal Cannula 2.00 02/24/17 06:56 71 149/83 02/24/17 06:00 78 02/24/17 04:00 97.9 76 15 149/82 (104) 96 02/24/17 04:00 76 02/24/17 02:00 78 02/24/17 00:00 84 02/24/17 00:00 97.9 84 14 156/85 (108) 98 Arterial Line 02/23/17 22:00 84 02/23/17 20:58 97 Nasal Cannula 2.00 02/23/17 20:00 97.9 86 14 143/80 (101) 97 02/23/17 20:00 86 02/23/17 19:00 98 Nasal Cannula 2.00 02/23/17 18:00 87 02/23/17 16:00 97.2 74 16 166/82 (110) 99 02/23/17 16:00 72 -: 02/24/17 0548 02/24/17 0548 Physical Exam General Appearance: No Acute Distress, Comfortable, Pale Eyes Eye Exam: Pupils Equal Throat Throat Exam: Oral Mucosa [place] & Moist Neck Neck Exam: Neck Supple Pulmonary Resp Exam: Crackles, Rhonchi, Decreased Bases, Diminished Breath Sounds Cardiology CV Exam: Regular, Normal Sinus Rhythm Gastrointestinal/Abdomen GI Exam: Soft, Non-Tender, Bowel Sounds Present Extremeties Extremities Exam: Moderate Edema Neurologic Neuro Exam: Alert, Awake Assessment/Plan Problem List: (1) Acute renal failure ICD Codes: N17.9 - Acute kidney failure, unspecified Status: Acute Plan: Patient developed Hypotension,sepsis staph aureus respiratory failure and increase WBC. Had aspiration pneumonia, developed sepsis with ARF again creatinine declined slightly post hydration has another event Septic post EGD/Colonoscopy Diverticulosis. Creatinine is improving, now 1.5. K is low, on K-PO4 replacement. Avoid Nephrotoxins, follow BMP. (2) CKD (chronic kidney disease) stage 3, GFR 30-59 ml/min ICD Codes: N18.3 - Chronic kidney disease, stage 3 (moderate) Status: Chronic Plan: Ultrasound revealed chronic kidney disease there is no kidney stones (3) Diabetes ICD Codes: E11.9 - Type 2 diabetes mellitus without complications Plan: Continue to monitor (4) Distal end of ulna fracture, closed ICD Codes: S52.609A - Unspecified fracture of lower end of unspecified ulna, initial encounter for closed fracture Status: Acute Plan: Orthopedic is following Problem Qualifiers (1) Acute renal failure: Qualified Codes: N17.9 - Acute kidney failure, unspecified Aicha Leonard MD Feb 24, 2017 14:07
[2017-02-24] MEDS: ACETAMINOPHEN/HYDROcodone 325 MG/7.5 MG TAB PO PRN (20:31)
[2017-02-24] MEDS: FAMOTIDINE 20 MG/2 ML VIAL IV PUSH SCH (20:31)
[2017-02-24] MEDS: ATORVASTATIN 10 MG TAB PO SCH (20:31)
[2017-02-24] MEDS: hydrALAZINE HCL 20 MG/ML VIAL IV PUSH PRN (22:12)
[2017-02-24] MEDS: RESP: ALBUTEROL 2.5 MG/IPRATROPIUM 0.5 MG NEB (PRN) INH (22:27)
[2017-02-25] VITALS (13 sets, daily range): BP systolic 147–178; BP diastolic 75–96; PULSE 78–92; RESP 12–16; TEMP 97.5–98.2; O2SAT 86–99
[2017-02-25] MEDS: OXACILLIN INJ 2 GM in SODIUM CHLORIDE 0.9% INJ 100 ML IV SCH ×5 (03:37→20:01)
[2017-02-25] MEDS: INSULIN NovoLIN REGULAR SUPPLEMENTAL SCALE SQ SCH ×5 (03:58→20:00)
[2017-02-25] MEDS: RESP: ALBUTEROL 2.5 MG/IPRATROPIUM 0.5 MG NEB (PRN) INH ×2 (04:20→09:16)
[2017-02-25] MEDS: HYDROCORTISONE SOD SUCCINATE 100 MG VIAL IV SCH ×3 (05:14→21:04)
[2017-02-25] MEDS: ACETAMINOPHEN/HYDROcodone 325 MG/7.5 MG TAB PO PRN (05:14)
[2017-02-25] MEDS: POTASSIUM PHOSPHATE/SODIUM PHOSPHATE 250 MG TAB PO SCH ×3 (05:14→21:05)
[2017-02-25 05:17] LABS: HEMATOCRIT 25.6 % (39.0-51.0); MEAN CELL VOLUME 82.1 FL (80.0-100.0); MEAN CORPUSCULAR HGB CONC 32.9 % (32.0-36.0); PLATELET COUNT 155 TH/MM3 (150-450); RED BLOOD COUNT 3.11 MIL/MM3 (4.50-5.90); RED CELL DISTRIBUTION WIDTH 19.2 % (11.6-17.2); REVIEW FLAG FINAL
[2017-02-25 05:24] LABS: BICARBONATE 23.3 MEQ/L (21.0-32.0)
[2017-02-25 05:26] LABS: POTASSIUM 2.8 MEQ/L (3.5-5.1)
[2017-02-25] MEDS: POTASSIUM CHLOR 40 MEQ PREMIX 100 ML IV PRN ×4 (05:35→17:18)
[2017-02-25 05:51] LABS: CALCIUM-PROTEIN CORRECTED 8.2 MG/DL (8.5-10.1)
[2017-02-25] MEDS: CHLORHEXIDINE 0.12% (ORAL KIT) 15 ML CUP MT SCH ×2 (08:00→19:45)
[2017-02-25] MEDS: DOCUSATE SODIUM 50 MG/SENNA 8.6 MG TAB PO SCH ×2 (08:38→20:00)
[2017-02-25] MEDS: LACTOBACILLUS ACIDOPHILUS TAB PO SCH ×3 (08:54→17:15)
[2017-02-25] MEDS: TAMSULOSIN HCL 0.4 MG CAP PO SCH ×2 (08:54→20:00)
[2017-02-25] MEDS: SODIUM CHLORIDE 0.9% FLUSH 10 ML FLUSH IV FLUSH SCH ×2 (08:55→20:01)
[2017-02-25] MEDS: ENOXAPARIN SODIUM 100 MG/ML SYRINGE SQ SCH (12:08)
--- NOTE | 2017-02-25 12:12 | HHI.GIFU ---
Subjective Remarks Patient is resting in bed doing good today, tolerating clears okay, no abd pain , no nausea, no vomiting, no bleeding. (RajeevcharlotteRed) Objective Vitals I&O Vital Signs Date Time Temp Pulse Resp B/P (MAP) Pulse Ox O2 Delivery O2 Flow Rate FiO2 02/25/17 10:14 95 Nasal Cannula 5.00 02/25/17 06:00 86 02/25/17 04:00 84 02/25/17 04:00 97.7 84 14 163/87 (112) 86 02/25/17 04:00 94 Nasal Cannula 6.00 02/25/17 02:00 94 Nasal Cannula 4.00 02/25/17 02:00 78 02/25/17 01:00 96 Nasal Cannula 3.00 02/25/17 00:00 97.5 80 16 147/75 (99) 93 02/25/17 00:00 80 02/24/17 22:28 92 Nasal Cannula 4.00 02/24/17 22:00 70 02/24/17 20:00 98.2 70 13 176/85 (115) 100 02/24/17 20:00 70 02/24/17 19:00 99 Nasal Cannula 3.00 02/24/17 18:00 84 02/24/17 16:00 84 02/24/17 16:00 98.2 82 15 166/86 (112) 94 02/24/17 14:00 92 I/O 02/24/17 02/24/17 02/24/17 02/25/17 02/25/17 02/25/17 07:00 15:00 23:00 07:00 15:00 23:00 Intake Total 996 ml 1431 ml 1056 ml Output Total 735 ml 1370 ml 750 ml Balance 261 ml 61 ml 306 ml Intake Oral 480 ml 720 ml 540 ml IV Total 516 ml 711 ml 516 ml Output Urine Total 725 ml 1350 ml 550 ml Stool Total 200 ml Drainage Total 10 ml 20 ml 0 ml # Bowel Movements 2 2 Laboratory Laboratory Tests Test 02/25/17 04:54 White Blood Count 5.0 Red Blood Count 3.11 Hemoglobin 8.4 Hematocrit 25.6 Mean Corpuscular Volume 82.1 Mean Corpuscular Hemoglobin 27.0 Mean Corpuscular Hemoglobin Concent 32.9 Red Cell Distribution Width 19.2 Platelet Count 155 Mean Platelet Volume 8.2 Blood Urea Nitrogen 19 Creatinine 1.34 Random Glucose 169 Total Protein 4.9 Calcium Level 7.0 Sodium Level 146 Potassium Level 2.8 Chloride Level 114 Carbon Dioxide Level 23.3 Anion Gap 9 Estimat Glomerular Filtration Rate 54 Protein Corrected Calcium 8.2 Date/Time Source Procedure Growth Status 02/20/17 12:35 Blood Peripheral Aerobic Blood Culture - Final NO GROWTH IN 5 DAYS Complete 02/20/17 12:35 Blood Peripheral Anaerobic Blood Culture - Final NO GROWTH IN 5 DAYS Complete 02/01/17 09:55 Cerebral Spinal Fluid Lumbar Puncture Fungal Smear - Final NO FUNGAL ELEMENTS SEEN. Resulted 02/01/17 09:55 Cerebral Spinal Fluid Lumbar Puncture Fungal Culture - Preliminary NO GROWTH IN 3 WEEKS Resulted 02/17/17 05:55 Stool Stool Stool Occult Blood (GREGORY) - Final HEMOCCULT POSITIVE Complete 02/20/17 12:55 Sputum Endotracheal Gram Stain - Final Complete 02/20/17 12:55 Sputum Endotracheal Sputum Culture - Final HEAVY GROWTH NORMAL RESPIRATORY EARL Complete 02/20/17 12:10 Urine Clean Catch Urine Culture - Final NO GROWTH IN 48 HOURS. Complete 02/11/17 09:10 Abscess Arm Acid Fast Stain - Final NO ACID FAST BACILLI SEEN Resulted 02/11/17 09:10 Abscess Arm Mycobacterial Culture - Preliminary NO GROWTH IN 1 WEEK Resulted Imaging Last Impressions Chest X-Ray 02/24/17 0600 Signed Impressions: Service Date/Time: Friday, February 24, 2017 03:58 - CONCLUSION: 1. Unchanged left lower lobe infiltrate with small effusion. Candido Mendoza Jr., MD Abdomen/Pelvis CT 02/19/17 0000 Signed Impressions: Service Date/Time: Sunday, February 19, 2017 19:09 - CONCLUSION: 1. Areas of calcification seen in the right renal collecting system, right renal pelvis, and proximal right ureter. These appear to layer and be dependent suggesting likely to represent smaller areas of milk of calcium or small stones. There is mild dilatation of the right renal collecting system and right ureter. A definite obstructing stone at this time is not seen. 2. A small amount of air within the urinary bladder. This should be correlated with any recent catheterization. 3. Mild bilateral pleural effusions with accompanying atelectasis or consolidation at the left base. The consolidation was present previously. 4. Prominent degenerative change in the lumbar spine and at the hip joints bilaterally. Angelo Manzo MD Abdomen X-Ray 02/18/17 Signed Impressions: Service Date/Time: Saturday, February 18, 2017 14:35 - CONCLUSION: Normal examination. Device overlies left upper abdomen. Otherwise unremarkable study. Duy Genao MD Upper Extremity Ultrasound 02/10/17 Signed Impressions: Service Date/Time: Friday, February 10, 2017 18:46 - CONCLUSION: Occlusive thrombus in the cephalic and basilic veins. Benjamin Person MD Lung Scan-V Nuclear Medicine 02/10/17 Signed Impressions: Service Date/Time: Friday, February 10, 2017 22:17 - CONCLUSION: Low probability pulmonary embolism. Candido Patton MD Head CT 02/10/17 Signed Impressions: Service Date/Time: Friday, February 10, 2017 23:51 - CONCLUSION: Negative noncontrast CT brain. Candido Patton MD Chest CT 02/10/17 Signed Impressions: Service Date/Time: Friday, February 10, 2017 23:56 - CONCLUSION: Left lower lobe collapse with consolidation. Patchy infiltrates the medial right lower lung. Candido Patton MD Wrist X-Ray 02/06/17 Signed Impressions: Service Date/Time: Monday, February 06, 2017 12:50 - CONCLUSION: Minimally displaced distal radius and ulnar fractures. Armando Dodd MD Lumbar Puncture Fluoroscopy 02/01/17 Signed Impressions: Service Date/Time: January 09:35 - CONCLUSION: Uncomplicated fluoroscopically guided lumbar puncture. CSF was clear. Nabeel Peralta MD Head Magnetic Resonance Angiography 01/27/17 Signed Impressions: Service Date/Time: Friday, January 27, 2017 10:33 - CONCLUSION: No intracranial vascular abnormality is identified. There is no aneurysm visualized. Angelo Allen MD IVC Filter Placement X-Ray 01/25/17 Signed Impressions: Service Date/Time: January 10:29 - CONCLUSION: Uncomplicated inferior vena cava filter placement as above. Yung Fowler MD Thoracic Spine MRI 01/24/17 Signed Impressions: Service Date/Time: Tuesday, January 24, 2017 22:29 - CONCLUSION: 1. Mild degenerative spondylosis most prominently at T11-L1 with slight effacement of the anterior thecal sac and left lateral recess. No significant neural foraminal stenosis. 2. No acute fracture. Juan Bhakta MD Renal Ultrasound 01/23/17 Signed Impressions: Service Date/Time: Monday, January 23, 2017 08:53 - CONCLUSION: 1. Evidence of chronic parenchymal disease of both kidneys. No obstructive uropathy or other acute abnormality demonstrated. 2. Trace ascites, nonspecific. Angelo Garrido MD Lumbar Spine MRI 01/23/17 Signed Impressions: Service Date/Time: Monday, January 23, 2017 17:01 - CONCLUSION: 1. At L4-5 is a broad-based disc protrusion with severe central canal and lateral recess stenosis and flattening of the exiting right L4 nerve root. 2. L5-S1 there is a disc protrusion and moderate stenosis with flattening of the exiting L5 nerve roots bilaterally. 3. At L3-4 there is a moderate to severe central stenosis and lateral recess stenosis with mild foraminal stenosis. 4. No acute fracture or spondylolisthesis. Trace Holloway MD Lower Extremity Ultrasound 01/23/17 Signed Impressions: Service Date/Time: Monday, January 23, 2017 09:53 - CONCLUSION: Bilateral focal lower extremity DVT involving the posterior tibial veins. Angelo Garrido MD Cervical Spine MRI 01/23/17 Signed Impressions: Service Date/Time: Monday, January 23, 2017 17:01 - CONCLUSION: 1. Multilevel cervical spine degenerative changes as above. 2. Mild degrees of spinal stenosis at C3/C4-C6/C7. No cord compression or cord signal abnormality. 3. Age indeterminate left paracentral/foraminal disc protrusion at C6/C7. 4. Multilevel foraminal stenosis, most severe on the left at C6/C7. Please see individual levels above. 5. No fracture or subluxation of the cervical spine. Angelo Garrido MD Brain MRI 01/23/17 Signed Impressions: Service Date/Time: Monday, January 23, 2017 17:01 - CONCLUSION: 1. No acute stroke or other acute intracranial abnormality demonstrated. 2. Moderate severity chronic white matter changes, nonspecific but most likely related to chronic small vessel disease. 3. Few scattered tiny lacunar infarcts of the brainstem. 4. Given the findings are not entirely specific, clinical evaluation for possible multiple sclerosis recommended. Angelo Garrido MD Knee X-Ray 01/22/172053 Signed Impressions: Service Date/Time: Sunday, January 22, 2017 21:17 - CONCLUSION: 1. Evidence of moderate to large joint effusion. 2. No acute fracture or malalignment. 3. Mild 3 compartment osteoarthritic change. Benjamin Person MD Hip and Pelvis X-Ray 01/22/172053 Signed Impressions: Service Date/Time: Sunday, January 22, 2017 21:10 - CONCLUSION: 1. Mild to moderate degenerative change of both hips with no acute fracture or malalignment. There is flattening and remodeling of the right humeral head. Benjamin Person MD Physical Exam HEENT: Normocephalic; atraumatic; no jaundice. CHEST: Resp even/unlabored Diminished bases CARDIAC: RRR ABDOMEN: Soft, nondistended, nontender, no hepatosplenomegaly; bowel sounds are present in all four quadrants. EXTREMITIES: Generalized edema. 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 Never had EGD/Colonoscopy. Has bilateral DVTs, requiring anticoagulation, Xarelto- now on hold. S/P EGD/Colonoscopy (02/22/17)----> 1. Gastritis antrum-biopsy esophagitis distal esophagus-biopsy duodenum normal-biopsy 2. Retroflexed views revealed a hiatal hernia 1. Diverticulosis sigmoid , descending polyp hepatic flexure-two--6 mm sessile-cold snare polypectomy with complete removal another 5 mm-cold biopsy with complete removal polyp sessile descending colon-7 mm-cold snare polypectomy with removal sigmoid-6 mm-cold snare polypectomy with complete removal random biopsies from descending colon- 2. Retroflexed views revealed internal hemorrhoids 3. Retroflexed views revealed small internal hemorrhoids 4. Revealed external hemorrhoids. Pathology pending. HH 8.1/24.6. - Abdominal pain. CT abdomen and pelvis without iv contrast (02/19/17)---> areas of calcification seen in the right renal collecting system, right renal pelvis, adn proximal ureter. these appear to layer and be dependent suggesting likely to represent smaller areas of milk of calcium or small stones. There is mild dilatation of th eright renal collecting system and right ureter. A definite obstructing stone at this time is not seen. A small amount of air within hte urinary bladder. This should be correlated with any recent catheterization. Mild bilateral pleural effusions with accompanying atelectasis or consolidation at the left base. the consolidation was present previously. Prominent degenerative change in the lumbar spine and at the hip joints bilaterally. Improved, although lightly sedated. EGD/Colonoscopy as above. IMPROVED. - Nausea, Inability to tolerate po. KUB (02/18/17)---> Normal examination. Device overlies left abdomen. Otherwise unremarkable study. CT/EGD/Colonoscopy as above. IMPROVED. Okay to have PITO once extubated- start with clears and advance as tolerated. - Diarrhea. On abx. CDiff negative S/P EGD/Colonoscopy - Respiratory Insufficiency/Hypoxia. S/P intubation, now on cpap. Possible extubation today. - DVT LE, bilateral. Xarelto/lovenox on hold. WIll resume lovenox - Transverse myelitis, per attending. Zosyn, diflucan, zyvox, per ID - LUE Abscess. S/P I&D with excision of left cephalic vein segment. Wound vac. - BREEZY, improved. Per renal. - HTN, DM, per attending. 02/25/17-- patient is doing good today, tolerating clears okay, H&H stable, bx still pending PLAN: - advance as tolerated - Await pathology - Monitor HH - Transfuse as necessary - Supportive care - Further recommendations to follow based on clinical status - Patient seen and examined by Dr. Shepard and myself and this note is written on her behalf. (Red Khan) Physician Comments seen, examined agree with above trial of dicyclomine, cholestyramine (Jerica Shepard MD) Red Khan Feb 25, 2017 12:12 Jerica Shepard MD Feb 25, 2017 19:30
--- NOTE | 2017-02-25 12:45 | HHI.NPPN ---
Subjective History of Present Illness 61-year-old with history of urinary stone Additional Remarks Patient is alert, no SOB, started eating some, feeling better. Review of Systems General Constitutional: Fatigue Objective Data Data Vital Signs Date Time Temp Pulse Resp B/P (MAP) Pulse Ox O2 Delivery O2 Flow Rate FiO2 02/25/17 10:14 95 Nasal Cannula 5.00 02/25/17 06:00 86 02/25/17 04:00 84 02/25/17 04:00 97.7 84 14 163/87 (112) 86 02/25/17 04:00 94 Nasal Cannula 6.00 02/25/17 02:00 94 Nasal Cannula 4.00 02/25/17 02:00 78 02/25/17 01:00 96 Nasal Cannula 3.00 02/25/17 00:00 97.5 80 16 147/75 (99) 93 02/25/17 00:00 80 02/24/17 22:28 92 Nasal Cannula 4.00 02/24/17 22:00 70 02/24/17 20:00 98.2 70 13 176/85 (115) 100 02/24/17 20:00 70 02/24/17 19:00 99 Nasal Cannula 3.00 02/24/17 18:00 84 02/24/17 16:00 84 02/24/17 16:00 98.2 82 15 166/86 (112) 94 02/24/17 14:00 92 -: 02/25/17 0454 02/25/17 0454 Physical Exam General Appearance: No Acute Distress, Comfortable, Pale Eyes Eye Exam: Pupils Equal Throat Throat Exam: Oral Mucosa [place] & Moist Neck Neck Exam: Neck Supple Pulmonary Resp Exam: Crackles, Rhonchi, Decreased Bases, Diminished Breath Sounds Cardiology CV Exam: Regular, Normal Sinus Rhythm Gastrointestinal/Abdomen GI Exam: Soft, Non-Tender, Bowel Sounds Present Extremeties Extremities Exam: Moderate Edema Neurologic Neuro Exam: Alert, Awake Assessment/Plan Problem List: (1) Acute renal failure ICD Codes: N17.9 - Acute kidney failure, unspecified Status: Acute Plan: Patient developed Hypotension,sepsis staph aureus respiratory failure and increase WBC. Had aspiration pneumonia, developed sepsis with ARF again creatinine declined slightly post hydration has another event Septic post EGD/Colonoscopy Diverticulosis. Creatinine is improving, now 1.34. K is low, on replacement. Avoid Nephrotoxins, follow BMP. Dr. Liao will follow from AM. (2) CKD (chronic kidney disease) stage 3, GFR 30-59 ml/min ICD Codes: N18.3 - Chronic kidney disease, stage 3 (moderate) Status: Chronic Plan: Ultrasound revealed chronic kidney disease there is no kidney stones (3) Diabetes ICD Codes: E11.9 - Type 2 diabetes mellitus without complications Plan: Continue to monitor (4) Distal end of ulna fracture, closed ICD Codes: S52.609A - Unspecified fracture of lower end of unspecified ulna, initial encounter for closed fracture Status: Acute Plan: Orthopedic is following Problem Qualifiers (1) Acute renal failure: Qualified Codes: N17.9 - Acute kidney failure, unspecified Aicha Leonard MD Feb 25, 2017 12:45
[2017-02-25] MEDS: SODIUM CHLOR 0.9% 1000 ML INJ 1,000 ML IV SCH (13:00)
--- NOTE | 2017-02-25 16:56 | HHI.CCPN ---
Subjective Remarks/Hospital Course Date of admission: 01/22 Date of critical care medicine consult 02/10 due to acute hypoxemic respiratory failure requiring emergent intubation 62-year-old male with a past medical history of hypertension, hyperlipidemia, diabetes mellitus, gout, uric acid kidney stones, kidney disease of unknown stage who originally presented to [facility] emergency department on 01/22 after a fall in which he sustained a right distal ulna fracture. He had been experiencing a gradual primarily lower extremity weakness as well as upper extremity weakness that was progressive. Neurology consult was obtained. MRI revealed no acute stroke. He had multifocal white matter changes. Tiny lacunar infarcts of the brainstem. Lumbar MRI report states L4-L5 disc protrusion with cetnral canal stenosis. Dr. Blackwell evaluated and states no cord compression on MRI C/T spine and recommended nonoperative management. Symptoms were felt to be consistent with transverse myelitis and he underwent Solumedrol 250 mg IV q6 hours 01/27-02/02. He also was found to have occlusive thrombus in the bilateral posterior tibial veins. Heparin was being avoided because he had traumatic lumbar puncture on 01/26 and 02/01. IVC filter was placed 01/25. He was undergoing physical therapy, reportedly making some improvements with plan to eventually discharged home with his son (max assist standing, and bed to chair per PT note). Apparently he had some vomiting the evening of 02/09 and additional vomiting on 02/10. He had a fever 102.8 on 02/09. Last recorded bowel movement was 02/03. Tonight he had acute onset of severe hypoxemia and respiratory distress. [facility] called and he was brought emergently to [facility] where his sats were 64% on 100% nonrebreather with mean arterial pressure 44. He was emergently intubated, CVL and art line placed. He is in septic shock. SUBJ: 02/11: Patient remains intubated sedated, critically ill. FiO2 reduced to 80% after increasing PEEP to 12. In severe septic shock Levophed at 16 mcg/m, vasopressin at 0.04 international units. D/W vascular surgery Dr. Enciso. He performed bedside Left upper extremity incision and debridement and excision of septic cephalic vein. 02/12: Remains intubated sedated profoundly septic, in shock on vasopressin and 7 mcg/min Levophed. FiO2 has improved to 45%, WBC count remains elevated with 20 ,000 white count significant left shift. Slight improvement in creatinine 2.9 urine output 750 ml 24 hours. 2-D echo shows LV ejection fraction 20-25%, no vegetation reported. Blood cultures 4 staph aureus. Wound culture pending 02/13: Remains critically ill but stable to improving. WBC count is down to 16, creatinine improving to 2.36. Off all pressors. Urine output also improving. 1.5L in 24 hours 02/14: Extubated 02/13. Tolerating well. WBC now down to 12.8. Creat improving 2.3 to 2. UO 3.4L. remains off all pressors. Was started on Precedex yesterday night for agitation, currently on 0.5 g per KG per hour. Chest x-ray shows left more than right air space disease 02/20/17 Re consult: 62-year-old male who was originally admitted for lower extremity weakness and found to have what was thought to be possible transverse myelitis. His hospital course his included a healthcare associated pneumonia, septic thrombophlebitis, DVT. He was most recently in the hospital floor where he had significant nausea and vomiting and diarrhea. His C. difficile test was recently negative. However, he has experienced worsening acute on chronic renal failure, hypotension, tachycardia, and severe hypoxemia. He did have a bout of vomiting earlier today, and his hospitalist attending suspects that he may have aspirated. He arrives by rapid response to the ICU with a nonrebreather in place in severe respiratory distress with SPO2 of 85%. I emergently intubate the patient, see separate procedure note for details. At this point the patient was hypotensive and tachycardic. He does have a history of an EF of 20%, however clinically he appears in florid septic shock. I placed central line and arterial line started vasopressors and gentle IV fluid resuscitation with 1 L of LR. Patient today was empirically broadened to vancomycin and Zosyn from his oxacillin which was initially treating MSSA bacteremia. He is recultured. Critical-care medicine is consulted to evaluate and manage his worsening multiorgan system failure and decompensated septic shock SUBJ 02/21: Patient remains intubated sedated. Becomes anxious tachypnea on sedation lightening. Chest x-ray shows mild left lower lobe infiltrate. WBC count is slightly improved today from 23.2 t0 21. C Diff negative. UO adequate, creat slightly worsening. 1.57 today 02/22: Remains intubated sedated tolerated CPAP yesterday, plan is for EGD/ Colonscopy. WBC count back to normal. UO adequate. Creat stable 02/23: Tolerating CPAP trials following commands. Will do a spontaneous breathing trials. Status post EGD colonoscopy yesterday -Gastritis, esophagitis. Diverticulosis and multiple polyps. Urine output adequate but creatinine increasing to 1.7 with patient requiring multiple straight catheterization. We'll reinsert Sloan. 02/24: Breathing comfortably 24 hours after extubation. Protects airway well. 02/25: Excoriate bottom, will place rectal FMS. Start pureed diet. Objective Vital Signs Date Time Temp Pulse Resp B/P (MAP) Pulse Ox O2 Delivery O2 Flow Rate FiO2 02/25/17 16:00 98.2 80 14 171/96 (121) 98 02/25/17 10:14 Nasal Cannula 5.00 02/23/17 10:22 40 Intake and Output 02/25/17 02/25/17 02/26/17 08:00 16:00 00:00 Intake Total 1056 ml Output Total 750 ml Balance 306 ml Result Diagram: 02/25/17 0454 02/25/17 1300 Imaging Last Impressions Chest X-Ray 02/20/17 0000 Signed Impressions: Service Date/Time: Monday, February 20, 2017 12:46 - CONCLUSION: 1. ETT approximately 1.7 cm above the roxanna. Left subclavian central line in proximal SVC. 2. No pneumothorax. 3. Stable trace right pleural effusion and small left pleural effusion with left lower lobe consolidation. Juan Bhakta MD Abdomen/Pelvis CT 02/19/17 0000 Signed Impressions: Service Date/Time: Sunday, February 19, 2017 19:09 - CONCLUSION: 1. Areas of calcification seen in the right renal collecting system, right renal pelvis, and proximal right ureter. These appear to layer and be dependent suggesting likely to represent smaller areas of milk of calcium or small stones. There is mild dilatation of the right renal collecting system and right ureter. A definite obstructing stone at this time is not seen. 2. A small amount of air within the urinary bladder. This should be correlated with any recent catheterization. 3. Mild bilateral pleural effusions with accompanying atelectasis or consolidation at the left base. The consolidation was present previously. 4. Prominent degenerative change in the lumbar spine and at the hip joints bilaterally. Angelo Manzo MD Abdomen X-Ray 02/18/17 Signed Impressions: Service Date/Time: Saturday, February 18, 2017 14:35 - CONCLUSION: Normal examination. Device overlies left upper abdomen. Otherwise unremarkable study. Duy Genao MD Upper Extremity Ultrasound 02/10/17 Signed Impressions: Service Date/Time: Friday, February 10, 2017 18:46 - CONCLUSION: Occlusive thrombus in the cephalic and basilic veins. Benjamin Person MD Lung Scan- Nuclear Medicine 02/10/17 Signed Impressions: Service Date/Time: Friday, February 10, 2017 22:17 - CONCLUSION: Low probability pulmonary embolism. Candido Patton MD Head CT 02/10/17 0000 Signed Impressions: Service Date/Time: Friday, February 10, 2017 23:51 - CONCLUSION: Negative noncontrast CT brain. Candido Patton MD Chest CT 02/10/17 0000 Signed Impressions: Service Date/Time: Friday, February 10, 2017 23:56 - CONCLUSION: Left lower lobe collapse with consolidation. Patchy infiltrates the medial right lower lung. Candido Patton MD Wrist X-Ray 02/06/17 0000 Signed Impressions: Service Date/Time: Monday, February 06, 2017 12:50 - CONCLUSION: Minimally displaced distal radius and ulnar fractures. Armando Dodd MD Lumbar Puncture Fluoroscopy 02/01/17 0000 Signed Impressions: Service Date/Time: January 09:35 - CONCLUSION: Uncomplicated fluoroscopically guided lumbar puncture. CSF was clear. Nabeel Peralta MD Head Magnetic Resonance Angiography 01/27/17 0000 Signed Impressions: Service Date/Time: Friday, January 27, 2017 10:33 - CONCLUSION: No intracranial vascular abnormality is identified. There is no aneurysm visualized. Angelo Allen MD IVC Filter Placement X-Ray 01/25/17 Signed Impressions: Service Date/Time: January 10:29 - CONCLUSION: Uncomplicated inferior vena cava filter placement as above. Yung Fowler MD Thoracic Spine MRI 9/6/17 0000 Signed Impressions: Service Date/Time: Tuesday, January 24, 2017 22:29 - CONCLUSION: 1. Mild degenerative spondylosis most prominently at T11-L1 with slight effacement of the anterior thecal sac and left lateral recess. No significant neural foraminal stenosis. 2. No acute fracture. Juan Bhakta MD Renal Ultrasound 01/23/17 Signed Impressions: Service Date/Time: Monday, January 23, 2017 08:53 - CONCLUSION: 1. Evidence of chronic parenchymal disease of both kidneys. No obstructive uropathy or other acute abnormality demonstrated. 2. Trace ascites, nonspecific. Angelo Garrido MD Lumbar Spine MRI 01/23/17 Signed Impressions: Service Date/Time: Monday, January 23, 2017 17:01 - CONCLUSION: 1. At L4-5 is a broad-based disc protrusion with severe central canal and lateral recess stenosis and flattening of the exiting right L4 nerve root. 2. L5-S1 there is a disc protrusion and moderate stenosis with flattening of the exiting L5 nerve roots bilaterally. 3. At L3-4 there is a moderate to severe central stenosis and lateral recess stenosis with mild foraminal stenosis. 4. No acute fracture or spondylolisthesis. Trace Holloway MD Lower Extremity Ultrasound 01/23/17 Signed Impressions: Service Date/Time: Monday, January 23, 2017 09:53 - CONCLUSION: Bilateral focal lower extremity DVT involving the posterior tibial veins. Angelo Garrido MD Cervical Spine MRI 01/23/17 Signed Impressions: Service Date/Time: Monday, January 23, 2017 17:01 - CONCLUSION: 1. Multilevel cervical spine degenerative changes as above. 2. Mild degrees of spinal stenosis at C3/C4-C6/C7. No cord compression or cord signal abnormality. 3. Age indeterminate left paracentral/foraminal disc protrusion at C6/C7. 4. Multilevel foraminal stenosis, most severe on the left at C6/C7. Please see individual levels above. 5. No fracture or subluxation of the cervical spine. Angelo Garrido MD Brain MRI 01/23/17 Signed Impressions: Service Date/Time: Monday, January 23, 2017 17:01 - CONCLUSION: 1. No acute stroke or other acute intracranial abnormality demonstrated. 2. Moderate severity chronic white matter changes, nonspecific but most likely related to chronic small vessel disease. 3. Few scattered tiny lacunar infarcts of the brainstem. 4. Given the findings are not entirely specific, clinical evaluation for possible multiple sclerosis recommended. Angelo Garrido MD Knee X-Ray 01/22/172053 Signed Impressions: Service Date/Time: Sunday, January 22, 2017 21:17 - CONCLUSION: 1. Evidence of moderate to large joint effusion. 2. No acute fracture or malalignment. 3. Mild 3 compartment osteoarthritic change. Benjamin Person MD Hip and Pelvis X-Ray 01/22/172053 Signed Impressions: Service Date/Time: Sunday, January 22, 2017 21:10 - CONCLUSION: 1. Mild to moderate degenerative change of both hips with no acute fracture or malalignment. There is flattening and remodeling of the right humeral head. Benjamin Person MD Objective Remarks GENERAL: Middle-aged male, lying in bed HEENT: Normocephalic. Atraumatic. Pupils equal, round, reactive, conjugate. NECK: Trachea is midline. Airway widely patent. CHEST: Air entry equal bilaterally, clear, comfortable pattern CARDIOVASCULAR: S1-S2 normal no murmurs. No JVD. ABDOMEN: Soft, nontender, nondistended. No guarding. MUSCULOSKELETAL: Pulses 2+. No peripheral edema. Warm, well perfused. NEUROLOGICAL: 4 out of 5 power in upper extremities, 3 out of 5 in the lower extremities. Conversant, follows commands Procedures IVC filter placement 01/25/2017 LP 01/26/2017 A/P Problem List: (1) Septic shock ICD Code: A41.9 - Sepsis, unspecified organism; R65.21 - Severe sepsis with septic shock Status: Acute (2) Acute respiratory failure ICD Code: J96.00 - Acute respiratory failure, unspecified whether with hypoxia or hypercapnia Status: Acute (3) Thrombophlebitis arm ICD Code: I80.8 - Phlebitis and thrombophlebitis of other sites (4) Aspiration pneumonia ICD Code: J69.0 - Pneumonitis due to inhalation of food and vomit Status: Acute (5) Atelectasis of left lung ICD Code: J98.11 - Atelectasis Status: Acute (6) Quadriparesis ICD Code: G82.50 - Quadriplegia, unspecified Status: Acute (7) DVT (deep venous thrombosis) ICD Code: I82.409 - Acute embolism and thrombosis of unspecified deep veins of unspecified lower extremity (8) Altered mental status ICD Code: R41.82 - Altered mental status, unspecified Status: Acute (9) CKD (chronic kidney disease) stage 3, GFR 30-59 ml/min ICD Code: N18.3 - Chronic kidney disease, stage 3 (moderate) Status: Chronic (10) Acute renal failure ICD Code: N17.9 - Acute kidney failure, unspecified Status: Acute (11) Diabetes mellitus ICD Code: E11.9 - Type 2 diabetes mellitus without complications Status: Chronic (12) Distal end of ulna fracture, closed ICD Code: S52.609A - Unspecified fracture of lower end of unspecified ulna, initial encounter for closed fracture Status: Acute (13) Gout ICD Code: M10.9 - Gout, unspecified Status: Chronic Assessment and Plan Assessment: 62yM with now acute and worsening septic shock and associated multi organ system failure including acute hypoxic respiratory failure, acute kidney injury. Likely secondary to healthcare associated pneumonia. Recent diarrhea, but C. Diff negative. Appreciate ID repeat cultures, continue ABX. Hospital associated aspiration pneumonia is most likely source. Remains critically ill NEURO: Acute metabolic encephalopathy Quadriparesis secondary to suspected transverse myelitis Recurrent falls Suspected transverse myelitis. Received Solu-Medrol 250 mg IV every 6 hours 01/27- 02/02, started back on hydrocortisone 02/21/17, will start tapering LP 01/26 and 02/01. CSF culture negative 01/26, 02/01 Oligoclonal bands negative. CSF/serum IgG index is not elevated. VDRL nonreactive. Cryptococcal antigen negative. Brain MRI 01/23 no acute stroke. Few scattered lacunar infarcts of the brainstem. Moderate chronic white matter changes. MRI cervical/thoracic spine- mild spinal stenosis 3C3/C4 to C6/C7. No cord compression. RPR negative Neurology has been following, Dr. Crenshaw. Repeat CT brain 02/10 - negative Continue PT/OT No sedation. RESP: Acute hypoxemic respiratory failure Healthcare associated pneumonia/Aspiration Pneumonia Intubated emergently 02/10. Extubated 02/13/17. Reintubated 02/20 for acute hypoxemia. SBT with possible extubation today 02/23 vent bundle, hob at 30 degrees, nebs, send sputum culture VQ scan 02/10 low probability for PE. CT chest02/10 - left lower lobe collapse and consolidation. Right lower lobe infiltrate. CXR 02/21. mild LLL infiltrate Extubated 02/23. CV: Septic shock-resolved Cardiomyopathy with ejection fraction 20-25% Hyperlipidemia History of hypertension Holding metoprolol and Norvasc. Continue statin. GI: Severe protein energy malnutrition Nausea/vomiting Diarrhea CT abdomen and pelvis 02/10 atrophic left kidney. Bilateral inguinal hernias fat- containing. Nonobstructing 12 mm right kidney stone repeat CT abd/pelvis did not show evidence of obstruction. patient clinically has been having diarrhea (c. diff negative 02/19). also with nausea/vomiting of unclear etiology. EGD/Colonoscopy-02/22/17 showed gastritis esophagitis diverticulosis and multiple polyps. Biopsy pending Excoriate bottom, place rectal tube. FEN/RENAL: Acute kidney injury Chronic kidney disease stage 3-4 History of uric acid kidney stones with prior stent Re insert Sloan due to urinary retention and worsening creatinine. Monitor intake and output q1hr. Monitor electrolytes. RIOS/SPEP negative. Nephrology following. Continue gentle hydration ID: Septic shock-resolved Abscess and Suppurative thrombophlebitis left upper extremity MSSA bacteremia Acute aspiration pneumonia/HCAP Broad-spectrum antibiotics with vanc/zosyn ID on board. f/u cultures form 02/20/17 blood, sputum, urine cultures-all negative to date HEME: DVT, bilateral posterior tibial vein, IVC filter Septic thrombophlebitis with occlusive thrombus mid cephalic and basilic vein Ultrasound 01/23/17 - Bilateral lower extremity with occlusive posterior tibial vein DVTs. Heparin was initially started for DVT but was placed on hold due to LP with suspected traumatic tap. now back on full anticoagulation with Lovenox. IVC filter was placed 01/25/17. Ultrasound LUE 02/10 occlusive thrombus mid cephalic vein, basilic vein. ENDO: Diabetes mellitus Hypoglycemia History of prior adrenal insufficiency with shock EGD colonoscopy completed 02/22. gastritis and esophagitis, colon polyps Started Hydrocortisone 100 mg IV q8hr 02/21/17 (Recent high dose steroids use now hypotensive, hypoglycemic) Reduce HC to 50 q8 q4h accuchecks. MSK: Right distal ulna fracture. Dr. Nathan with orthopedics has evaluated and recommended nonoperative management. Right wrist splint in place. Gout PROPH: Famotidine for stress ulcer prophylaxis. Has IVC filter. Therapeutic lovenox. ACCESS: s/p art line, central line. Overall impression: Stable respiratory status after extubation. Needs protection for perineal skin. Problem Qualifiers (1) Aspiration pneumonia: (2) DVT (deep venous thrombosis): Qualified Codes: I82.443 - Acute embolism and thrombosis of tibial vein, bilateral (3) Acute renal failure: Qualified Codes: N17.9 - Acute kidney failure, unspecified (4) Diabetes mellitus: (5) Gout: Nic West MD Feb 25, 2017 16:56
[2017-02-25] MEDS: ATORVASTATIN 10 MG TAB PO SCH (20:00)
[2017-02-25] MEDS: FAMOTIDINE 20 MG/2 ML VIAL IV PUSH SCH (20:01)
[2017-02-25] MEDS: CHOLESTYRAMINE LIGHT 4 GM PACKAGE PO SCH ×2 (21:00→22:11)
[2017-02-25] MEDS: MORPHINE SULFATE 4 MG/ML INJ IV PUSH PRN (21:36)
[2017-02-25] MEDS: hydrALAZINE HCL 20 MG/ML VIAL IV PUSH PRN (22:10)
[2017-02-26] VITALS (11 sets, daily range): BP systolic 77–178; BP diastolic 60–94; PULSE 76–100; RESP 10–20; TEMP 97.7–99; O2SAT 94–100
[2017-02-26] MEDS: OXACILLIN INJ 2 GM in SODIUM CHLORIDE 0.9% INJ 100 ML IV SCH ×6 (00:53→19:50)
[2017-02-26] MEDS: ENOXAPARIN SODIUM 100 MG/ML SYRINGE SQ SCH ×2 (00:53→16:20)
[2017-02-26] MEDS: POTASSIUM CHLOR 40 MEQ PREMIX 100 ML IV PRN ×4 (03:15→19:01)
[2017-02-26] MEDS: VASOPRESSIN INJ 40 UNITS in DEXTROSE 5% IN WATER 100ML INJ 98 ML IV SCH ×2 (03:24)
[2017-02-26] MEDS: INSULIN NovoLIN REGULAR SUPPLEMENTAL SCALE SQ SCH ×5 (04:00→21:00)
[2017-02-26] MEDS: POTASSIUM PHOSPHATE/SODIUM PHOSPHATE 250 MG TAB PO SCH (04:26)
[2017-02-26] MEDS: HYDROCORTISONE SOD SUCCINATE 100 MG VIAL IV SCH (04:27)
[2017-02-26] MEDS: ACETAMINOPHEN/HYDROcodone 325 MG/7.5 MG TAB PO PRN (04:48)
[2017-02-26] MEDS: hydrALAZINE HCL 20 MG/ML VIAL IV PUSH PRN (04:48)
[2017-02-26 06:49] LABS: HEMATOCRIT 24.3 % (39.0-51.0); MEAN CELL VOLUME 82.6 FL (80.0-100.0); MEAN CORPUSCULAR HEMOGLOBIN 26.8 PG (27.0-34.0); MEAN CORPUSCULAR HGB CONC 32.5 % (32.0-36.0); PLATELET COUNT 165 TH/MM3 (150-450); RED BLOOD COUNT 2.94 MIL/MM3 (4.50-5.90); RED CELL DISTRIBUTION WIDTH 18.8 % (11.6-17.2); REVIEW FLAG FINAL; WHITE BLOOD COUNT 7.4 TH/MM3 (4.0-11.0)
[2017-02-26 07:47] LABS: BICARBONATE 22.2 MEQ/L (21.0-32.0); POTASSIUM 3.2 MEQ/L (3.5-5.1)
[2017-02-26] MEDS: CHLORHEXIDINE 0.12% (ORAL KIT) 15 ML CUP MT SCH ×2 (08:00→19:50)
[2017-02-26 08:11] LABS: CALCIUM-PROTEIN CORRECTED 7.9 MG/DL (8.5-10.1)
[2017-02-26] MEDS: LACTOBACILLUS ACIDOPHILUS TAB PO SCH ×3 (08:48→18:00)
[2017-02-26] MEDS: SODIUM CHLORIDE 0.9% FLUSH 10 ML FLUSH IV FLUSH SCH ×2 (08:49→19:49)
[2017-02-26] MEDS: DOCUSATE SODIUM 50 MG/SENNA 8.6 MG TAB PO SCH (08:49)
[2017-02-26] MEDS: TAMSULOSIN HCL 0.4 MG CAP PO SCH ×2 (08:49→19:49)
[2017-02-26] MEDS: CHOLESTYRAMINE LIGHT 4 GM PACKAGE PO SCH ×2 (08:52→19:49)
--- NOTE | 2017-02-26 10:54 | HHI.GIFU ---
Subjective Remarks Resting in bed. Didn't eat much for breakfast, states he was not hungry. Still having diarrhea and some abdominal cramping associated with this. (Nena Driver) Objective Vitals I&O Vital Signs Date Time Temp Pulse Resp B/P (MAP) Pulse Ox O2 Delivery O2 Flow Rate FiO2 02/26/17 07:00 96 Nasal Cannula 2.00 02/26/17 05:53 14 02/26/17 04:00 97.8 87 14 171/94 (119) 98 02/26/17 00:00 99.0 98 15 157/77 (103) 94 02/25/17 22:24 17 02/25/17 21:43 96 Nasal Cannula 3.00 02/25/17 20:00 98.0 78 16 178/86 (116) 98 02/25/17 19:43 Nasal Cannula 3.00 02/25/17 18:00 90 02/25/17 16:00 98.2 80 14 171/96 (121) 98 02/25/17 16:00 80 02/25/17 14:00 92 02/25/17 12:00 98.1 82 12 171/86 (114) 99 02/25/17 12:00 82 I/O 02/25/17 02/25/17 02/25/17 02/26/17 02/26/17 02/26/17 07:00 15:00 23:00 07:00 15:00 23:00 Intake Total 1056 ml 1534 ml 580 ml Output Total 750 ml 2300 ml 300 ml Balance 306 ml -766 ml 280 ml Intake Oral 540 ml 720 ml 480 ml IV Total 516 ml 814 ml 100 ml Output Urine Total 550 ml 1800 ml Stool Total 200 ml 500 ml 300 ml Drainage Total 0 ml Laboratory Laboratory Tests Test 02/25/17 13:00 02/26/17 00:55 02/26/17 06:30 Potassium Level 2.9 3.0 3.2 White Blood Count 7.4 Red Blood Count 2.94 Hemoglobin 7.9 Hematocrit 24.3 Mean Corpuscular Volume 82.6 Mean Corpuscular Hemoglobin 26.8 Mean Corpuscular Hemoglobin Concent 32.5 Red Cell Distribution Width 18.8 Platelet Count 165 Mean Platelet Volume 7.8 Blood Urea Nitrogen 17 Creatinine 1.10 Random Glucose 116 Total Protein 4.8 Calcium Level 6.7 Sodium Level 145 Chloride Level 113 Carbon Dioxide Level 22.2 Anion Gap 10 Estimat Glomerular Filtration Rate 68 Protein Corrected Calcium 7.9 Date/Time Source Procedure Growth Status 02/20/17 12:35 Blood Peripheral Aerobic Blood Culture - Final NO GROWTH IN 5 DAYS Complete 02/20/17 12:35 Blood Peripheral Anaerobic Blood Culture - Final NO GROWTH IN 5 DAYS Complete 02/01/17 09:55 Cerebral Spinal Fluid Lumbar Puncture Fungal Smear - Final NO FUNGAL ELEMENTS SEEN. Resulted 02/01/17 09:55 Cerebral Spinal Fluid Lumbar Puncture Fungal Culture - Preliminary NO GROWTH IN 3 WEEKS Resulted 02/17/17 05:55 Stool Stool Stool Occult Blood (GREGORY) - Final HEMOCCULT POSITIVE Complete 02/20/17 12:55 Sputum Endotracheal Gram Stain - Final Complete 02/20/17 12:55 Sputum Endotracheal Sputum Culture - Final HEAVY GROWTH NORMAL RESPIRATORY EARL Complete 02/20/17 12:10 Urine Clean Catch Urine Culture - Final NO GROWTH IN 48 HOURS. Complete 02/11/17 09:10 Abscess Arm Acid Fast Stain - Final NO ACID FAST BACILLI SEEN Resulted 02/11/17 09:10 Abscess Arm Mycobacterial Culture - Preliminary NO GROWTH IN 2 WEEKS Resulted Imaging Last Impressions Chest X-Ray 02/24/17 0600 Signed Impressions: Service Date/Time: Friday, February 24, 2017 03:58 - CONCLUSION: 1. Unchanged left lower lobe infiltrate with small effusion. Candido Mendoza Jr., MD Abdomen/Pelvis CT 02/19/17 0000 Signed Impressions: Service Date/Time: Sunday, February 19, 2017 19:09 - CONCLUSION: 1. Areas of calcification seen in the right renal collecting system, right renal pelvis, and proximal right ureter. These appear to layer and be dependent suggesting likely to represent smaller areas of milk of calcium or small stones. There is mild dilatation of the right renal collecting system and right ureter. A definite obstructing stone at this time is not seen. 2. A small amount of air within the urinary bladder. This should be correlated with any recent catheterization. 3. Mild bilateral pleural effusions with accompanying atelectasis or consolidation at the left base. The consolidation was present previously. 4. Prominent degenerative change in the lumbar spine and at the hip joints bilaterally. Angelo Manzo MD Abdomen X-Ray 02/18/17 0000 Signed Impressions: Service Date/Time: Saturday, February 18, 2017 14:35 - CONCLUSION: Normal examination. Device overlies left upper abdomen. Otherwise unremarkable study. Duy Genao MD Upper Extremity Ultrasound 02/10/17 Signed Impressions: Service Date/Time: Friday, February 10, 2017 18:46 - CONCLUSION: Occlusive thrombus in the cephalic and basilic veins. Benjamin Person MD Lung Scan-V Nuclear Medicine 02/10/17 Signed Impressions: Service Date/Time: Friday, February 10, 2017 22:17 - CONCLUSION: Low probability pulmonary embolism. Candido Patton MD Head CT 02/10/17 Signed Impressions: Service Date/Time: Friday, February 10, 2017 23:51 - CONCLUSION: Negative noncontrast CT brain. Candido Patton MD Chest CT 02/10/17 Signed Impressions: Service Date/Time: Friday, February 10, 2017 23:56 - CONCLUSION: Left lower lobe collapse with consolidation. Patchy infiltrates the medial right lower lung. Candido Patton MD Wrist X-Ray 02/06/17 Signed Impressions: Service Date/Time: Monday, February 06, 2017 12:50 - CONCLUSION: Minimally displaced distal radius and ulnar fractures. Armando Dodd MD Lumbar Puncture Fluoroscopy 02/01/17 Signed Impressions: Service Date/Time: January 09:35 - CONCLUSION: Uncomplicated fluoroscopically guided lumbar puncture. CSF was clear. Nabeel Peralta MD Head Magnetic Resonance Angiography 01/27/17 Signed Impressions: Service Date/Time: Friday, January 27, 2017 10:33 - CONCLUSION: No intracranial vascular abnormality is identified. There is no aneurysm visualized. Angelo Allen MD IVC Filter Placement X-Ray 01/25/17 Signed Impressions: Service Date/Time: January 10:29 - CONCLUSION: Uncomplicated inferior vena cava filter placement as above. Yung Fowler MD Thoracic Spine MRI 01/24/17 Signed Impressions: Service Date/Time: Tuesday, January 24, 2017 22:29 - CONCLUSION: 1. Mild degenerative spondylosis most prominently at T11-L1 with slight effacement of the anterior thecal sac and left lateral recess. No significant neural foraminal stenosis. 2. No acute fracture. Juan Bhakta MD Renal Ultrasound 01/23/17 Signed Impressions: Service Date/Time: Monday, January 23, 2017 08:53 - CONCLUSION: 1. Evidence of chronic parenchymal disease of both kidneys. No obstructive uropathy or other acute abnormality demonstrated. 2. Trace ascites, nonspecific. Angelo Garrido MD Lumbar Spine MRI 01/23/17 Signed Impressions: Service Date/Time: Monday, January 23, 2017 17:01 - CONCLUSION: 1. At L4-5 is a broad-based disc protrusion with severe central canal and lateral recess stenosis and flattening of the exiting right L4 nerve root. 2. L5-S1 there is a disc protrusion and moderate stenosis with flattening of the exiting L5 nerve roots bilaterally. 3. At L3-4 there is a moderate to severe central stenosis and lateral recess stenosis with mild foraminal stenosis. 4. No acute fracture or spondylolisthesis. Trace Holloway MD Lower Extremity Ultrasound 01/23/17 Signed Impressions: Service Date/Time: Monday, January 23, 2017 09:53 - CONCLUSION: Bilateral focal lower extremity DVT involving the posterior tibial veins. Angelo Garrido MD Cervical Spine MRI 01/23/17 Signed Impressions: Service Date/Time: Monday, January 23, 2017 17:01 - CONCLUSION: 1. Multilevel cervical spine degenerative changes as above. 2. Mild degrees of spinal stenosis at C3/C4-C6/C7. No cord compression or cord signal abnormality. 3. Age indeterminate left paracentral/foraminal disc protrusion at C6/C7. 4. Multilevel foraminal stenosis, most severe on the left at C6/C7. Please see individual levels above. 5. No fracture or subluxation of the cervical spine. Angelo Garrido MD Brain MRI 01/23/17 Signed Impressions: Service Date/Time: Monday, January 23, 2017 17:01 - CONCLUSION: 1. No acute stroke or other acute intracranial abnormality demonstrated. 2. Moderate severity chronic white matter changes, nonspecific but most likely related to chronic small vessel disease. 3. Few scattered tiny lacunar infarcts of the brainstem. 4. Given the findings are not entirely specific, clinical evaluation for possible multiple sclerosis recommended. Angelo Garrido MD Knee X-Ray 01/22/172053 Signed Impressions: Service Date/Time: Sunday, January 22, 2017 21:17 - CONCLUSION: 1. Evidence of moderate to large joint effusion. 2. No acute fracture or malalignment. 3. Mild 3 compartment osteoarthritic change. Benjamin Person MD Hip and Pelvis X-Ray 01/22/172053 Signed Impressions: Service Date/Time: Sunday, January 22, 2017 21:10 - CONCLUSION: 1. Mild to moderate degenerative change of both hips with no acute fracture or malalignment. There is flattening and remodeling of the right humeral head. Benjamin Person MD Physical Exam HEENT: Normocephalic; atraumatic; no jaundice. CHEST: Resp even/unlabored Diminished bases CARDIAC: RRR ABDOMEN: Soft, nondistended, mild diffuse tenderness, no hepatosplenomegaly; bowel sounds are present in all four quadrants. Flexiseal with liquid stool EXTREMITIES: Generalized edema. Edema LUE, wound vac to left extremity MATERIAL MANAGER: Lethargic, oriented X 3 (Nena Driver) Assessment and Plan Plan ASSESSMENT: - Anemia, Hemoccult positive stools. Never had EGD/Colonoscopy. Has bilateral DVTs, requiring anticoagulation, Xarelto- now on hold. S/P EGD/Colonoscopy (02/22/17)----> 1. Gastritis antrum-biopsy esophagitis distal esophagus-biopsy duodenum normal-biopsy 2. Retroflexed views revealed a hiatal hernia 1. Diverticulosis sigmoid , descending polyp hepatic flexure-two--6 mm sessile-cold snare polypectomy with complete removal another 5 mm-cold biopsy with complete removal polyp sessile descending colon-7 mm-cold snare polypectomy with removal sigmoid-6 mm-cold snare polypectomy with complete removal random biopsies from descending colon- 2. Retroflexed views revealed internal hemorrhoids 3. Retroflexed views revealed small internal hemorrhoids 4. Revealed external hemorrhoids. Pathology pending. HH 7.9/24.3. - Abdominal pain. CT abdomen and pelvis without iv contrast (02/19/17)---> areas of calcification seen in the right renal collecting system, right renal pelvis, adn proximal ureter. these appear to layer and be dependent suggesting likely to represent smaller areas of milk of calcium or small stones. There is mild dilatation of th eright renal collecting system and right ureter. A definite obstructing stone at this time is not seen. A small amount of air within hte urinary bladder. This should be correlated with any recent catheterization. Mild bilateral pleural effusions with accompanying atelectasis or consolidation at the left base. the consolidation was present previously. Prominent degenerative change in the lumbar spine and at the hip joints bilaterally. Improved, although lightly sedated. EGD/Colonoscopy as above. Still having some tenderness on exam, although overall much improved. - Nausea, Inability to tolerate po. KUB (02/18/17)---> Normal examination. Device overlies left abdomen. Otherwise unremarkable study. CT/EGD/Colonoscopy as above. IMPROVED. On diabetic diet. - Diarrhea. On abx. CDiff negative S/P EGD/Colonoscopy, pathology pending. Pt continues to have diarrhea- 800cc per day. On questran, bentyl (but ordered prn and has not received), he is on solucortef. Add lomotil. - Respiratory Insufficiency/Hypoxia. S/P extubation - DVT LE, bilateral. Xarelto/lovenox on hold. WIll resume lovenox - Transverse myelitis, per attending. Oxacillin, per ID - LUE Abscess. S/P I&D with excision of left cephalic vein segment. Wound vac. - BREEZY, improved. Per renal. - HTN, DM, per attending. PLAN: - PITO - Await pathology - Monitor HH - Transfuse as necessary - Change bentyl to scheduled - Cont. Questran - Recommend trial of Lomotil - Supportive care - Further recommendations to follow based on clinical status - Patient seen and examined by Dr. Durant and myself and this note is written on his behalf. (Nena Driver) Physician Comments Seen and examined with MURPHY, still with diarrhea in flexi seal. Biopsies-p. On steroids already add lomotil. Discussed with family at the bedside. (Johnathon Durant MD) Nena Driver Feb 26, 2017 10:53 Johnathon Durant MD Feb 26, 2017 11:17
--- NOTE | 2017-02-26 12:29 | HHI.IDPN ---
Subjective Subjective Remarks Patient is a 62-year-old male, admitted to the hospital for evaluation of pain in his right wrist. He gave a history of falling about a week ago and apparently had immediate pain in the right wrist. He did not seek any medical attention initially because reportedly he was very busy. He eventually presented, and he was found to have a distal ulnar fracture on plain films. He also had some redness and swelling. Orthopedics saw the patient, and was being treated conservatively with the splint. During this hospitalization also he started complaining of generalized weakness but more so in his lower extremity than his upper extremity. He had swelling in both lower extremity which revealed evidence of DVT in the posterior tibial veins. Neurology had seen the patient and he underwent lumbar puncture which apparently was traumatic. Patient was therefore not given anticoagulation because of the traumatic LP, and he underwent placement of an IVC filter on January 25. Patient had another lumbar puncture on February 01. He was felt to have transverse myelitis, and he was given high-dose IV Solu-Medrol from January 27 to February 02. There was apparently some improvement in his weakness. The imaging studies done for his weakness showed some spinal stenosis, and neurosurgery was consult that and recommended that there was no surgical intervention to be done. Patient has been stabilizing, but last night apparently deteriorated, and he ended up getting intubated, and had significant hypotension requiring pressors. There was also an ultrasound done of his left upper extremity which showed DVT, and there was evidence of superior 2 thrombophlebitis. Vascular surgery was consult to it and he had IND on his left upper extremity. Patient has had some fevers since yesterday. 2 blood cultures were done yesterday and they're now reported as growing gram-positive cocci in [place] in clusters. He is currently sedated and intubated. He is on Levophed and vasopressin. A central line was placed as well as a femoral a line. He apparently had an IV in his left upper extremity and that was removed yesterday. Patient also has history of chronic kidney disease, and nephrology evaluated the patient. He was just being monitored for his renal insufficiency. Infectious disease consultation has been requested to evaluate the patient. Notes reviewed Has occ low grade temps Tolerating extubation On nasal O2 Good UO Creatinine down to normal Cultures reviewed C diff negative On Abx for MSSA bacteremia due to suppurative thrombophlebitis RUE, S/P OR Last (+) 02/12 Antibiotics Oxacillin Lines LSC TLC Past Medical History Reviewed Allergies: Coded Allergies: levofloxacin (Verified Allergy, Severe, 01/22/17) Objective . Vital Signs Date Time Temp Pulse Resp B/P (MAP) Pulse Ox O2 Delivery O2 Flow Rate FiO2 02/26/17 07:00 96 Nasal Cannula 2.00 02/26/17 05:53 14 02/26/17 04:00 97.8 87 14 171/94 (119) 98 02/26/17 00:00 99.0 98 15 157/77 (103) 94 02/25/17 22:24 17 02/25/17 21:43 96 Nasal Cannula 3.00 02/25/17 20:00 98.0 78 16 178/86 (116) 98 02/25/17 19:43 Nasal Cannula 3.00 02/25/17 18:00 90 02/25/17 16:00 98.2 80 14 171/96 (121) 98 02/25/17 16:00 80 02/25/17 14:00 92 . Laboratory Tests Test 02/25/17 04:54 02/26/17 06:30 White Blood Count 5.0 TH/MM3 7.4 TH/MM3 Red Blood Count 3.11 MIL/MM3 2.94 MIL/MM3 Hemoglobin 8.4 GM/DL 7.9 GM/DL Hematocrit 25.6 % 24.3 % Mean Corpuscular Volume 82.1 FL 82.6 FL Mean Corpuscular Hemoglobin 27.0 PG 26.8 PG Mean Corpuscular Hemoglobin Concent 32.9 % 32.5 % Red Cell Distribution Width 19.2 % 18.8 % Platelet Count 155 TH/MM3 165 TH/MM3 Mean Platelet Volume 8.2 FL 7.8 FL Laboratory Tests Test 02/25/17 04:54 02/25/17 13:00 02/26/17 00:55 02/26/17 06:30 Blood Urea Nitrogen 19 MG/DL 17 MG/DL Creatinine 1.34 MG/DL 1.10 MG/DL Random Glucose 169 MG/DL 116 MG/DL Total Protein 4.9 GM/DL 4.8 GM/DL Calcium Level 7.0 MG/DL 6.7 MG/DL Sodium Level 146 MEQ/L 145 MEQ/L Potassium Level 2.8 MEQ/L 2.9 MEQ/L 3.0 MEQ/L 3.2 MEQ/L Chloride Level 114 MEQ/L 113 MEQ/L Carbon Dioxide Level 23.3 MEQ/L 22.2 MEQ/L Anion Gap 9 MEQ/L 10 MEQ/L Estimat Glomerular Filtration Rate 54 ML/MIN 68 ML/MIN Protein Corrected Calcium 8.2 MG/DL 7.9 MG/DL Imaging Chest X-Ray 02/24/17 0600 Signed Impressions: Service Date/Time: Friday, February 24, 2017 03:58 - CONCLUSION: 1. Unchanged left lower lobe infiltrate with small effusion. Candido Mendoza Jr., MD Chest X-Ray 02/20/17 Signed Impressions: Service Date/Time: Monday, February 20, 2017 11:36 - CONCLUSION: 1. Stable very small right and small left pleural effusions with left lower lobe airspace consolidation. 2. No significant interval change. Juan Bhakta MD Abdomen/Pelvis CT 02/19/17 Signed Impressions: Service Date/Time: Sunday, February 19, 2017 19:09 - CONCLUSION: 1. Areas of calcification seen in the right renal collecting system, right renal pelvis, and proximal right ureter. These appear to layer and be dependent suggesting likely to represent smaller areas of milk of calcium or small stones. There is mild dilatation of the right renal collecting system and right ureter. A definite obstructing stone at this time is not seen. 2. A small amount of air within the urinary bladder. This should be correlated with any recent catheterization. 3. Mild bilateral pleural effusions with accompanying atelectasis or consolidation at the left base. The consolidation was present previously. 4. Prominent degenerative change in the lumbar spine and at the hip joints bilaterally. Angelo Manzo MD Chest X-Ray 02/12/17 0600 Signed Impressions: Service Date/Time: Sunday, February 12, 2017 03:32 - CONCLUSION: 1. Support apparatus in good position. Relatively stable basilar airspace disease and pleural effusions. Trace Holloway MD Upper Extremity Ultrasound 02/10/17 Signed Impressions: Service Date/Time: Friday, February 10, 2017 18:46 - CONCLUSION: Occlusive thrombus in the cephalic and basilic veins. Benjamin Person MD Lung Scan- Nuclear Medicine 02/10/17 Signed Impressions: Service Date/Time: Friday, February 10, 2017 22:17 - CONCLUSION: Low probability pulmonary embolism. Candido Patton MD Head CT 02/10/17 0000 Signed Impressions: Service Date/Time: Friday, February 10, 2017 23:51 - CONCLUSION: Negative noncontrast CT brain. Candido Patton MD Chest CT 02/10/17 0000 Signed Impressions: Service Date/Time: Friday, February 10, 2017 23:56 - CONCLUSION: Left lower lobe collapse with consolidation. Patchy infiltrates the medial right lower lung. Candido Patton MD Abdomen/Pelvis CT 02/10/17 0000 Signed Impressions: Service Date/Time: Friday, February 10, 2017 23:59 - CONCLUSION: 1. Nonobstructing 12 mm calcified stone lower pole right kidney. 2. Atrophic left kidney with significant cortical thinning. 3. Bilateral fat-containing inguinal hernias, large on the right, and moderate on the left. 4. Consolidative collapse of the left lower lobe. Candido Patton MD Abdomen X-Ray 02/10/17 0000 Signed Impressions: Service Date/Time: Friday, February 10, 2017 08:14 - CONCLUSION: No acute abdominal abnormality is identified. Angelo Allen MD Wrist X-Ray 02/06/17 0000 Signed Impressions: Service Date/Time: Monday, February 06, 2017 12:50 - CONCLUSION: Minimally displaced distal radius and ulnar fractures. Armando Dodd MD Lumbar Puncture Fluoroscopy 02/01/17 0000 Signed Impressions: Service Date/Time: January 09:35 - CONCLUSION: Uncomplicated fluoroscopically guided lumbar puncture. CSF was clear. Nabeel Peralta MD Head Magnetic Resonance Angiography 01/27/17 0000 Signed Impressions: Service Date/Time: Friday, January 27, 2017 10:33 - CONCLUSION: No intracranial vascular abnormality is identified. There is no aneurysm visualized. Angelo Allen MD IVC Filter Placement X-Ray 01/25/17 0000 Signed Impressions: Service Date/Time: January 10:29 - CONCLUSION: Uncomplicated inferior vena cava filter placement as above. Yung Fowler MD Thoracic Spine MRI 01/24/17 0000 Signed Impressions: Service Date/Time: Tuesday, January 24, 2017 22:29 - CONCLUSION: 1. Mild degenerative spondylosis most prominently at T11-L1 with slight effacement of the anterior thecal sac and left lateral recess. No significant neural foraminal stenosis. 2. No acute fracture. Juan Bhakta MD Renal Ultrasound 01/23/17 Signed Impressions: Service Date/Time: Monday, January 23, 2017 08:53 - CONCLUSION: 1. Evidence of chronic parenchymal disease of both kidneys. No obstructive uropathy or other acute abnormality demonstrated. 2. Trace ascites, nonspecific. Angelo Garrido MD Lumbar Spine MRI 01/23/17 Signed Impressions: Service Date/Time: Monday, January 23, 2017 17:01 - CONCLUSION: 1. At L4-5 is a broad-based disc protrusion with severe central canal and lateral recess stenosis and flattening of the exiting right L4 nerve root. 2. L5-S1 there is a disc protrusion and moderate stenosis with flattening of the exiting L5 nerve roots bilaterally. 3. At L3-4 there is a moderate to severe central stenosis and lateral recess stenosis with mild foraminal stenosis. 4. No acute fracture or spondylolisthesis. Trace Holloway MD Lower Extremity Ultrasound 01/23/17 Signed Impressions: Service Date/Time: Monday, January 23, 2017 09:53 - CONCLUSION: Bilateral focal lower extremity DVT involving the posterior tibial veins. Angelo Garrido MD Cervical Spine MRI 01/23/17 Signed Impressions: Service Date/Time: Monday, January 23, 2017 17:01 - CONCLUSION: 1. Multilevel cervical spine degenerative changes as above. 2. Mild degrees of spinal stenosis at C3/C4-C6/C7. No cord compression or cord signal abnormality. 3. Age indeterminate left paracentral/foraminal disc protrusion at C6/C7. 4. Multilevel foraminal stenosis, most severe on the left at C6/C7. Please see individual levels above. 5. No fracture or subluxation of the cervical spine. Angelo Garrido MD Brain MRI 01/23/17 Signed Impressions: Service Date/Time: Monday, January 23, 2017 17:01 - CONCLUSION: 1. No acute stroke or other acute intracranial abnormality demonstrated. 2. Moderate severity chronic white matter changes, nonspecific but most likely related to chronic small vessel disease. 3. Few scattered tiny lacunar infarcts of the brainstem. 4. Given the findings are not entirely specific, clinical evaluation for possible multiple sclerosis recommended. Angelo Garrido MD Knee X-Ray 01/22/172053 Signed Impressions: Service Date/Time: Sunday, January 22, 2017 21:17 - CONCLUSION: 1. Evidence of moderate to large joint effusion. 2. No acute fracture or malalignment. 3. Mild 3 compartment osteoarthritic change. Benjamin Person MD Hip and Pelvis X-Ray 01/22/172053 Signed Impressions: Service Date/Time: Sunday, January 22, 2017 21:10 - CONCLUSION: 1. Mild to moderate degenerative change of both hips with no acute fracture or malalignment. There is flattening and remodeling of the right humeral head. Benjamin Person MD Physical Exam GENERAL: Awake, NAD SKIN: Warm and dry. No generalized rash. Has ecchymoses in UE EYES: [place] conjunctiva. No petechia or hemorrhage. Pupils equal, round and reactive to light. No scleral icterus. EARS, NOSE AND THROAT: Nose without bleeding or purulent nasal discharge. Moist mucosa NECK: Trachea midline. Supple and no meningeal signs CARDIOVASCULAR: Regular rate and rhythm. Soft heart sounds. No murmurs, rubs or gallops heard RESPIRATORY: Coarse BS bilaterally, decreased on L base ABDOMEN: Soft, nondistended, bowel sounds present and normoactive, no reaction to palpation. No guarding. EXTREMITIES: No clubbing, cyanosis. Both hands less edematous. Has evidence of multiple gouty tophi in both hands and feet. LUE - wound vac in place NEUROLOGICAL: Awake and following PSYCHIATRIC: Calm and cooperative LINE: Line with no evidence of infection Assessment & Plan Remarks IMPRESSION New shock, sepsis, ?aspiration - better - sputum with normal salyl MSSA sepsis, with shock, due to suppurative thrombophlebitis MACI, S/P I and D and excision of portion of cephalic vein - off pressors Respiratory failure, CXR now with infiltrates - sputum with MSSA - extubated Recurrent respiratory failure, ?aspiration - extubated Recent Rx 7 days high dose solumedrol for transverse myelitis Wu LE DVT has IVC filter placed 01/25 - ?hypercoagulable state Chronic kidney disease Known DM, HTN Gouty tophi both hands and feet Diarrhea, C diff negative Low grade temps RECOMMENDATION Continue IV Oxacillin - plan 6 weeks for Rx endovascular infection - anticipated end date Mar 25 Monitor temps Monitor progress Will need 6 weeks IV Abx from date of last (+) BC for MSSA bacteremia Irene Edwards MD Feb 26, 2017 12:29
[2017-02-26] MEDS: SODIUM CHLOR 0.9% 1000 ML INJ 1,000 ML IV SCH (13:00)
[2017-02-26] MEDS ORDERED: SPIRONOLACTONE 25 MG TAB PO ONE (14:45)
--- NOTE | 2017-02-26 14:51 | HHI.CCPN ---
Subjective Remarks/Hospital Course Date of admission: 01/22 Date of critical care medicine consult 02/10 due to acute hypoxemic respiratory failure requiring emergent intubation 62-year-old male with a past medical history of hypertension, hyperlipidemia, diabetes mellitus, gout, uric acid kidney stones, kidney disease of unknown stage who originally presented to [facility] emergency department on 01/22 after a fall in which he sustained a right distal ulna fracture. He had been experiencing a gradual primarily lower extremity weakness as well as upper extremity weakness that was progressive. Neurology consult was obtained. MRI revealed no acute stroke. He had multifocal white matter changes. Tiny lacunar infarcts of the brainstem. Lumbar MRI report states L4-L5 disc protrusion with cetnral canal stenosis. Dr. Blackwell evaluated and states no cord compression on MRI C/T spine and recommended nonoperative management. Symptoms were felt to be consistent with transverse myelitis and he underwent Solumedrol 250 mg IV q6 hours 01/27-02/02. He also was found to have occlusive thrombus in the bilateral posterior tibial veins. Heparin was being avoided because he had traumatic lumbar puncture on 01/26 and 02/01. IVC filter was placed 01/25. He was undergoing physical therapy, reportedly making some improvements with plan to eventually discharged home with his son (max assist standing, and bed to chair per PT note). Apparently he had some vomiting the evening of 02/09 and additional vomiting on 02/10. He had a fever 102.8 on 02/09. Last recorded bowel movement was 02/03. Tonight he had acute onset of severe hypoxemia and respiratory distress. [facility] called and he was brought emergently to [facility] where his sats were 64% on 100% nonrebreather with mean arterial pressure 44. He was emergently intubated, CVL and art line placed. He is in septic shock. SUBJ: 02/11: Patient remains intubated sedated, critically ill. FiO2 reduced to 80% after increasing PEEP to 12. In severe septic shock Levophed at 16 mcg/m, vasopressin at 0.04 international units. D/W vascular surgery Dr. Enciso. He performed bedside Left upper extremity incision and debridement and excision of septic cephalic vein. 02/12: Remains intubated sedated profoundly septic, in shock on vasopressin and 7 mcg/min Levophed. FiO2 has improved to 45%, WBC count remains elevated with 20 ,000 white count significant left shift. Slight improvement in creatinine 2.9 urine output 750 ml 24 hours. 2-D echo shows LV ejection fraction 20-25%, no vegetation reported. Blood cultures 4 staph aureus. Wound culture pending 02/13: Remains critically ill but stable to improving. WBC count is down to 16, creatinine improving to 2.36. Off all pressors. Urine output also improving. 1.5L in 24 hours 02/14: Extubated 02/13. Tolerating well. WBC now down to 12.8. Creat improving 2.3 to 2. UO 3.4L. remains off all pressors. Was started on Precedex yesterday night for agitation, currently on 0.5 g per KG per hour. Chest x-ray shows left more than right air space disease 02/20/17 Re consult: 62-year-old male who was originally admitted for lower extremity weakness and found to have what was thought to be possible transverse myelitis. His hospital course his included a healthcare associated pneumonia, septic thrombophlebitis, DVT. He was most recently in the hospital floor where he had significant nausea and vomiting and diarrhea. His C. difficile test was recently negative. However, he has experienced worsening acute on chronic renal failure, hypotension, tachycardia, and severe hypoxemia. He did have a bout of vomiting earlier today, and his hospitalist attending suspects that he may have aspirated. He arrives by rapid response to the ICU with a nonrebreather in place in severe respiratory distress with SPO2 of 85%. I emergently intubate the patient, see separate procedure note for details. At this point the patient was hypotensive and tachycardic. He does have a history of an EF of 20%, however clinically he appears in florid septic shock. I placed central line and arterial line started vasopressors and gentle IV fluid resuscitation with 1 L of LR. Patient today was empirically broadened to vancomycin and Zosyn from his oxacillin which was initially treating MSSA bacteremia. He is recultured. Critical-care medicine is consulted to evaluate and manage his worsening multiorgan system failure and decompensated septic shock 02/21: Patient remains intubated sedated. Becomes anxious tachypnea on sedation lightening. Chest x-ray shows mild left lower lobe infiltrate. WBC count is slightly improved today from 23.2 t0 21. C Diff negative. UO adequate, creat slightly worsening. 1.57 today 02/22: Remains intubated sedated tolerated CPAP yesterday, plan is for EGD/ Colonscopy. WBC count back to normal. UO adequate. Creat stable 02/23: Tolerating CPAP trials following commands. Will do a spontaneous breathing trials. Status post EGD colonoscopy yesterday -Gastritis, esophagitis. Diverticulosis and multiple polyps. Urine output adequate but creatinine increasing to 1.7 with patient requiring multiple straight catheterization. We'll reinsert Sloan. 02/24: Breathing comfortably 24 hours after extubation. Protects airway well. 02/25: Excoriate bottom, will place rectal FMS. Start pureed diet. Subjective 02/26: Afebrile. Complaining of nausea and vomiting this afternoon. Increased stool output. Continue potassium replacement today.. Objective Vital Signs Date Time Temp Pulse Resp B/P (MAP) Pulse Ox O2 Delivery O2 Flow Rate FiO2 02/26/17 07:00 96 Nasal Cannula 2.00 02/26/17 05:53 14 02/26/17 04:00 97.8 87 171/94 (119) 02/23/17 10:22 40 Intake and Output 02/26/17 02/26/17 02/26/17 07:59 15:59 23:59 Intake Total 580 ml Output Total 300 ml Balance 280 ml Result Diagram: 02/26/17 0630 02/26/17 0630 Other Results Microbiology Date/Time Source Procedure Growth Status 02/20/17 12:35 Blood Peripheral Aerobic Blood Culture - Final NO GROWTH IN 5 DAYS Complete 02/20/17 12:35 Blood Peripheral Anaerobic Blood Culture - Final NO GROWTH IN 5 DAYS Complete 02/01/17 09:55 Cerebral Spinal Fluid Lumbar Puncture Fungal Smear - Final NO FUNGAL ELEMENTS SEEN. Resulted 02/01/17 09:55 Cerebral Spinal Fluid Lumbar Puncture Fungal Culture - Preliminary NO GROWTH IN 3 WEEKS Resulted 02/17/17 05:55 Stool Stool Stool Occult Blood (GREGORY) - Final HEMOCCULT POSITIVE Complete 02/20/17 12:55 Sputum Endotracheal Gram Stain - Final Complete 02/20/17 12:55 Sputum Endotracheal Sputum Culture - Final HEAVY GROWTH NORMAL RESPIRATORY EARL Complete 02/20/17 12:10 Urine Clean Catch Urine Culture - Final NO GROWTH IN 48 HOURS. Complete 02/11/17 09:10 Abscess Arm Acid Fast Stain - Final NO ACID FAST BACILLI SEEN Resulted 02/11/17 09:10 Abscess Arm Mycobacterial Culture - Preliminary NO GROWTH IN 2 WEEKS Resulted Imaging Last Impressions Chest X-Ray 02/24/17 0600 Signed Impressions: Service Date/Time: Friday, February 24, 2017 03:58 - CONCLUSION: 1. Unchanged left lower lobe infiltrate with small effusion. Candido Mendoza Jr., MD Abdomen/Pelvis CT 02/19/17 0000 Signed Impressions: Service Date/Time: Sunday, February 19, 2017 19:09 - CONCLUSION: 1. Areas of calcification seen in the right renal collecting system, right renal pelvis, and proximal right ureter. These appear to layer and be dependent suggesting likely to represent smaller areas of milk of calcium or small stones. There is mild dilatation of the right renal collecting system and right ureter. A definite obstructing stone at this time is not seen. 2. A small amount of air within the urinary bladder. This should be correlated with any recent catheterization. 3. Mild bilateral pleural effusions with accompanying atelectasis or consolidation at the left base. The consolidation was present previously. 4. Prominent degenerative change in the lumbar spine and at the hip joints bilaterally. Angelo Manzo MD Abdomen X-Ray 02/18/17 0000 Signed Impressions: Service Date/Time: Saturday, February 18, 2017 14:35 - CONCLUSION: Normal examination. Device overlies left upper abdomen. Otherwise unremarkable study. Duy Genao MD Upper Extremity Ultrasound 02/10/17 0000 Signed Impressions: Service Date/Time: Friday, February 10, 2017 18:46 - CONCLUSION: Occlusive thrombus in the cephalic and basilic veins. Benjamin Person MD Lung Scan- Nuclear Medicine 02/10/17 0000 Signed Impressions: Service Date/Time: Friday, February 10, 2017 22:17 - CONCLUSION: Low probability pulmonary embolism. Candido Patton MD Head CT 02/10/17 0000 Signed Impressions: Service Date/Time: Friday, February 10, 2017 23:51 - CONCLUSION: Negative noncontrast CT brain. Candido Patton MD Chest CT 02/10/17 0000 Signed Impressions: Service Date/Time: Friday, February 10, 2017 23:56 - CONCLUSION: Left lower lobe collapse with consolidation. Patchy infiltrates the medial right lower lung. Candido Patton MD Wrist X-Ray 02/06/17 0000 Signed Impressions: Service Date/Time: Monday, February 06, 2017 12:50 - CONCLUSION: Minimally displaced distal radius and ulnar fractures. Armando Dodd MD Lumbar Puncture Fluoroscopy 02/01/17 0000 Signed Impressions: Service Date/Time: January 09:35 - CONCLUSION: Uncomplicated fluoroscopically guided lumbar puncture. CSF was clear. Nabeel Peralta MD Head Magnetic Resonance Angiography 01/27/17 Signed Impressions: Service Date/Time: Friday, January 27, 2017 10:33 - CONCLUSION: No intracranial vascular abnormality is identified. There is no aneurysm visualized. Angelo Allen MD IVC Filter Placement X-Ray 01/25/17 Signed Impressions: Service Date/Time: January 10:29 - CONCLUSION: Uncomplicated inferior vena cava filter placement as above. Yung Fowler MD Thoracic Spine MRI 01/24/17 Signed Impressions: Service Date/Time: Tuesday, January 24, 2017 22:29 - CONCLUSION: 1. Mild degenerative spondylosis most prominently at T11-L1 with slight effacement of the anterior thecal sac and left lateral recess. No significant neural foraminal stenosis. 2. No acute fracture. Juan Bhakta MD Renal Ultrasound 01/23/17 Signed Impressions: Service Date/Time: Monday, January 23, 2017 08:53 - CONCLUSION: 1. Evidence of chronic parenchymal disease of both kidneys. No obstructive uropathy or other acute abnormality demonstrated. 2. Trace ascites, nonspecific. Angelo Garrido MD Lumbar Spine MRI 01/23/17 0000 Signed Impressions: Service Date/Time: Monday, January 23, 2017 17:01 - CONCLUSION: 1. At L4-5 is a broad-based disc protrusion with severe central canal and lateral recess stenosis and flattening of the exiting right L4 nerve root. 2. L5-S1 there is a disc protrusion and moderate stenosis with flattening of the exiting L5 nerve roots bilaterally. 3. At L3-4 there is a moderate to severe central stenosis and lateral recess stenosis with mild foraminal stenosis. 4. No acute fracture or spondylolisthesis. Trace Holloway MD Lower Extremity Ultrasound 9/5/17 0000 Signed Impressions: Service Date/Time: Monday, January 23, 2017 09:53 - CONCLUSION: Bilateral focal lower extremity DVT involving the posterior tibial veins. Angelo Garrido MD Cervical Spine MRI 01/23/17 Signed Impressions: Service Date/Time: Monday, January 23, 2017 17:01 - CONCLUSION: 1. Multilevel cervical spine degenerative changes as above. 2. Mild degrees of spinal stenosis at C3/C4-C6/C7. No cord compression or cord signal abnormality. 3. Age indeterminate left paracentral/foraminal disc protrusion at C6/C7. 4. Multilevel foraminal stenosis, most severe on the left at C6/C7. Please see individual levels above. 5. No fracture or subluxation of the cervical spine. Angelo Garrido MD Brain MRI 01/23/17 Signed Impressions: Service Date/Time: Monday, January 23, 2017 17:01 - CONCLUSION: 1. No acute stroke or other acute intracranial abnormality demonstrated. 2. Moderate severity chronic white matter changes, nonspecific but most likely related to chronic small vessel disease. 3. Few scattered tiny lacunar infarcts of the brainstem. 4. Given the findings are not entirely specific, clinical evaluation for possible multiple sclerosis recommended. Angelo Garrido MD Knee X-Ray 01/22/172053 Signed Impressions: Service Date/Time: Sunday, January 22, 2017 21:17 - CONCLUSION: 1. Evidence of moderate to large joint effusion. 2. No acute fracture or malalignment. 3. Mild 3 compartment osteoarthritic change. Benjamin Person MD Hip and Pelvis X-Ray 01/22/172053 Signed Impressions: Service Date/Time: Sunday, January 22, 2017 21:10 - CONCLUSION: 1. Mild to moderate degenerative change of both hips with no acute fracture or malalignment. There is flattening and remodeling of the right humeral head. Benjamin Person MD Objective Remarks GENERAL: 62-year-old male, critically ill currently resting in bed on nasal cannula HEENT: Normocephalic. Atraumatic. Pupils equal, round, reactive, conjugate. NECK: Trachea is midline. No JVD or thyromegaly CHEST: Essentially clear to auscultation without wheezes rales or rhonchi. Distant. CARDIOVASCULAR: S1-S2 normal no murmurs. No JVD. ABDOMEN: Soft, nontender, vertebral. Tender to deep palpation. No guarding or rigidity. Hypoactive bowel sounds. MUSCULOSKELETAL: Pulses 2+. Trace to 1+ bilateral upper and lower extremity edema. NEUROLOGICAL: 4 out of 5 strength bilateral in upper extremities, 3 out of 5 in the lower extremities. Conversant, follows commands Procedures IVC filter placement 01/25/2017 LP 01/26/2017 A/P Assessment and Plan NEURO/PSYCH: Acute metabolic encephalopathyQuadriparesis secondary to suspected transverse myelitis Recurrent falls Suspected transverse myelitis. Received methylprednisolone 250 mg IV every 6 hours 01/27-02/02, started back on hydrocortisone 02/21/17, will start tapering to 50 mg IV every 8 hours starting today Hydrocodone/acetaminophen 5-7.5 every 4 hours. Pain Morphine sulfate for breakthrough pain LP 01/26 and 02/01. CSF culture negative 01/26, 02/01 Oligoclonal bands negative. CSF/serum IgG index is not elevated. VDRL nonreactive. Cryptococcal antigen negative. Brain MRI 01/23 no acute stroke. Few scattered lacunar infarcts of the brainstem. Moderate chronic white matter changes. MRI cervical/thoracic spine- mild spinal stenosis 3C3/C4 to C6/C7. No cord compression. RPR negative Neurology has been following, Dr. Crenshaw. Repeat CT brain 02/10 - negative Continue PT/OT No sedation. RESP: Acute hypoxemic respiratory failure - resolved Healthcare associated pneumonia/Aspiration Pneumonia Nasal cannula to maintain saturations greater than equal to 92 Incentive spirometry while awake VQ scan 02/10 low probability for PE. CT chest02/10 - left lower lobe collapse and consolidation. Right lower lobe infiltrate. CXR 02/21. mild LLL infiltrate Extubated 02/23. CV: Septic shock-resolved Cardiomyopathy with ejection fraction 20-25% Hyperlipidemia History of hypertension Holding metoprolol and amlodipine for hypotension. Continue atorvastatin 10 mg by mouth daily for dyslipidemia. With nausea we'll give low-dose IV fluids 50 cc an hour 1 L Started on spironolactone 25 mg daily GI: Severe protein energy malnutrition Nausea/vomiting Diarrhea Gastritis Diverticulosis CT abdomen and pelvis 02/10 atrophic left kidney. Bilateral inguinal hernias fat- containing. Nonobstructing 12 mm right kidney stone repeat CT abd/pelvis did not show evidence of obstruction. patient clinically has been having diarrhea (c. diff negative 02/19). also with nausea/vomiting of unclear etiology. EGD/Colonoscopy-02/22/17 showed gastritis esophagitis diverticulosis and multiple polyps. Biopsy pending Excoriate bottom, place rectal tube. Recheck liver function tests, amylase and lipase today. Check C. difficile Currently in cholestyramine 4 g every 12 hours Dicyclomine 20 mg 3 times a day FEN/RENAL: Acute kidney injury in the setting of Chronic kidney disease stage 3-4 History of uric acid kidney stones with prior stent Removed Sloan due to urinary retention and worsening creatinine. Monitor intake and output q1hr. Monitor electrolytes. RIOS/SPEP negative. Urology following. No indication for nephrostomy tube at this time. Continue gentle hydration Continue tamsulosin 0.4 mg by mouth daily ID: Septic shock-resolved Abscess and Suppurative thrombophlebitis left upper extremity MSSA bacteremia Acute aspiration pneumonia/HCAP Broad-spectrum antibiotics with oxacillin 2 g IV every 4 hours till March 26 ID on board. f/u cultures form 02/20/17 blood, sputum, urine cultures-all negative to date HEME: DVT, bilateral posterior tibial vein, IVC filter Septic thrombophlebitis with occlusive thrombus mid cephalic and basilic vein Ultrasound 01/23/17 - Bilateral lower extremity with occlusive posterior tibial vein DVTs. Heparin was initially started for DVT but was placed on hold due to LP with suspected traumatic tap. now back on full anticoagulation with enoxaparin 100 mg IV twice a day IVC filter was placed 01/25/17. Ultrasound LUE 02/10 occlusive thrombus mid cephalic vein, basilic vein. ENDO: Diabetes mellitus Hypoglycemia History of prior adrenal insufficiency with shock Gout EGD colonoscopy completed 02/22. gastritis and esophagitis, colon polyps Started Hydrocortisone 100 mg IV q8hr 02/21/17 (Recent high dose steroids use now hypotensive, hypoglycemic) Reduce HC to 50 q8 Accu-Cheks to maintain euglycemia MSK: Right distal ulna fracture. Dr. Nathan with orthopedics has evaluated and recommended nonoperative management. Right wrist splint in place. PROPH: Famotidine for stress ulcer prophylaxis. Has IVC filter. Therapeutic enoxaparin ACCESS: Left subclavian CVL placed 02/20 level II follow-up Janes Aguiar MD Feb 26, 2017 14:51
--- NOTE | 2017-02-26 14:52 | HHI.NPPN ---
Subjective History of Present Illness 61-year-old with history of urinary stone Additional Remarks Patient is alert, no SOB, started eating some, feeling better. Review of Systems General Constitutional: Fatigue Objective Data Data Vital Signs Date Time Temp Pulse Resp B/P (MAP) Pulse Ox O2 Delivery O2 Flow Rate FiO2 02/26/17 07:00 96 Nasal Cannula 2.00 02/26/17 05:53 14 02/26/17 04:00 97.8 87 14 171/94 (119) 98 02/26/17 00:00 99.0 98 15 157/77 (103) 94 02/25/17 22:24 17 02/25/17 21:43 96 Nasal Cannula 3.00 02/25/17 20:00 98.0 78 16 178/86 (116) 98 02/25/17 19:43 Nasal Cannula 3.00 02/25/17 18:00 90 02/25/17 16:00 98.2 80 14 171/96 (121) 98 02/25/17 16:00 80 -: 02/26/17 0630 02/26/17 0630 Physical Exam General Appearance: No Acute Distress, Comfortable, Pale Eyes Eye Exam: Pupils Equal Throat Throat Exam: Oral Mucosa [place] & Moist Neck Neck Exam: Neck Supple Pulmonary Resp Exam: Crackles, Rhonchi, Decreased Bases, Diminished Breath Sounds Cardiology CV Exam: Regular, Normal Sinus Rhythm Gastrointestinal/Abdomen GI Exam: Soft, Non-Tender, Bowel Sounds Present Extremeties Extremities Exam: Moderate Edema Neurologic Neuro Exam: Alert, Awake Assessment/Plan Problem List: (1) Acute renal failure ICD Codes: N17.9 - Acute kidney failure, unspecified Status: Acute Plan: Patient developed Hypotension,sepsis staph aureus respiratory failure and increase WBC. Had aspiration pneumonia, developed sepsis with ARF again creatinine declined slightly post hydration has another event Septic post EGD/Colonoscopy Diverticulosis. Creatinine is improving, now 1.1. K is low, on replacement. Avoid Nephrotoxins, follow BMP. Added Spironolactone as k Low and BP high (2) CKD (chronic kidney disease) stage 3, GFR 30-59 ml/min ICD Codes: N18.3 - Chronic kidney disease, stage 3 (moderate) Status: Chronic Plan: Ultrasound revealed chronic kidney disease there is no kidney stones (3) Diabetes ICD Codes: E11.9 - Type 2 diabetes mellitus without complications Plan: Continue to monitor (4) Distal end of ulna fracture, closed ICD Codes: S52.609A - Unspecified fracture of lower end of unspecified ulna, initial encounter for closed fracture Status: Acute Plan: Orthopedic is following Problem Qualifiers (1) Acute renal failure: Qualified Codes: N17.9 - Acute kidney failure, unspecified Laura Liao MD Feb 26, 2017 14:52
[2017-02-26] MEDS ORDERED: D5W + KCL 20 MEQ INJ 1,000 ML IV SCH (15:00)
--- NOTE | 2017-02-26 15:28 | RADRPT ---
EXAM DATE/TIME: 02/26/2017 14:52 [facility] COMPARISON: ABDOMEN KUB ONLY, February 18, 2017, 14:35. INDICATIONS : Nausea MEDICAL HISTORY : Gastroesophageal reflux disease. Arthritis. Renal calculi. Cardiovascular SURGICAL HISTORY : Nasal surgery. Stents in kidneys ENCOUNTER: Subsequent ACUITY: 1 day PAIN SCORE: 0/10 LOCATION: Abdomen FINDINGS: Air is seen throughout the colon. No definite dilated loops of bowel are demonstrated. No gross pneum atosis or free air. No significant abnormal calcifications. Remainder of exam is unchanged. CONCLUSION: 1. Nonobstructive bowel gas pattern. Juan Bhakta MD on February 26, 2017 at 15:25 Board Certified Radiologist. This report was verified electronically.
[2017-02-26 16:14] LABS: MAGNESIUM 1.5 MG/DL (1.5-2.5)
[2017-02-26 16:16] LABS: INDIRECT BILIRUBIN 0.1 MG/DL (0.0-0.8); TOTAL BILIRUBIN ADULT 0.2 MG/DL (0.2-1.0)
[2017-02-26] MEDS: DICYCLOMINE HCL 20 MG TAB PO SCH ×2 (16:29→18:00)
[2017-02-26] MEDS: ONDANSETRON HCL 4 MG/2 ML VIAL IVP PRN (17:23)
[2017-02-26] MEDS: ATORVASTATIN 10 MG TAB PO SCH (19:49)
[2017-02-26] MEDS: FAMOTIDINE 20 MG/2 ML VIAL IV PUSH SCH (19:49)
[2017-02-26] MEDS ORDERED: LACTATED RINGER'S 1000 ML INJ 1,000 ML IV ONE (20:45)
[2017-02-26] MEDS ORDERED: HYDROCORTISONE SOD SUCCINATE 100 MG VIAL IV PUSH ONE (21:00)
[2017-02-26 21:35] LABS: AUTOMATED NEUTROPHIL # 8.8 TH/MM3 (1.8-7.7); BASOPHIL % 0.2 % (0.0-2.0); EOSINOPHIL % 0.3 % (0.0-4.0); LYMPH % 17.2 % (9.0-44.0); LYMPHOCYTE # 2.1 TH/MM3 (1.0-4.8); MEAN CELL VOLUME 83.2 FL (80.0-100.0); MEAN CORPUSCULAR HEMOGLOBIN 26.4 PG (27.0-34.0); MEAN CORPUSCULAR HGB CONC 31.7 % (32.0-36.0); NEUT % 73.3 % (16.0-70.0); PLATELET COUNT 204 TH/MM3 (150-450); RED BLOOD COUNT 2.19 MIL/MM3 (4.50-5.90); RED CELL DISTRIBUTION WIDTH 18.7 % (11.6-17.2)
[2017-02-26 21:38] LABS: HEMO FLAGS DIFF FINAL
[2017-02-26 21:41] LABS: HEMATOCRIT 18.2 % (39.0-51.0)
[2017-02-26] MEDS ORDERED: MAGNESIUM SULFATE 1 GM PREMIX 100 ML IV ONE (21:45)
[2017-02-26] MEDS ORDERED: SODIUM CHLOR 0.9% 250 ML INJ 250 ML IV ONE (21:45)
[2017-02-26 21:56] LABS: BICARBONATE 22.7 MEQ/L (21.0-32.0); MAGNESIUM 1.3 MG/DL (1.5-2.5); POTASSIUM 3.6 MEQ/L (3.5-5.1)
[2017-02-26] MEDS ORDERED: HYDROCORTISONE SOD SUCCINATE 100 MG VIAL IV SCH (22:00)
[2017-02-26] MEDS: METOCLOPRAMIDE HCL 10 MG/2 ML VIAL IV PUSH SCH (22:21)
[2017-02-26 22:32] LABS: CALCIUM-PROTEIN CORRECTED 8.4 MG/DL (8.5-10.1)
[2017-02-26 22:40] LABS: APTT (PATIENT) 34.7 SEC (24.3-30.1); INTERNATIONAL NORMALIZED RATIO 1.1 RATIO; PROTHROMBIN TIME - PATIENT 12.6 SEC (9.8-11.6)
[2017-02-27] VITALS (31 sets, daily range): BP systolic 70–151; BP diastolic 32–79; PULSE 79–100; RESP 11–29; TEMP 89.2–98.6; O2SAT 98–100
[2017-02-27] MEDS: MAGNESIUM SULFATE 1 GM PREMIX 100 ML IV SCH ×2 (00:06)
[2017-02-27] MEDS: PANTOPRAZOLE SODIUM 40 MG VIAL IV PUSH SCH ×3 (00:06→23:30)
[2017-02-27] MEDS ORDERED: SODIUM CHLOR 0.9% 250 ML INJ 250 ML IV ONE ×5 (00:30→22:45)
[2017-02-27] MEDS: OXACILLIN INJ 2 GM in SODIUM CHLORIDE 0.9% INJ 100 ML IV SCH ×2 (00:52→04:25)
[2017-02-27 05:03] LABS: MEAN CELL VOLUME 85.4 FL (80.0-100.0); MEAN CORPUSCULAR HEMOGLOBIN 28.2 PG (27.0-34.0); MEAN CORPUSCULAR HGB CONC 33.1 % (32.0-36.0); PLATELET COUNT 204 TH/MM3 (150-450); RED BLOOD COUNT 2.69 MIL/MM3 (4.50-5.90); RED CELL DISTRIBUTION WIDTH 16.7 % (11.6-17.2); REVIEW FLAG FINAL; WHITE BLOOD COUNT 16.1 TH/MM3 (4.0-11.0)
[2017-02-27 05:33] LABS: BICARBONATE 21.3 MEQ/L (21.0-32.0); MAGNESIUM 1.7 MG/DL (1.5-2.5); POTASSIUM 3.9 MEQ/L (3.5-5.1)
[2017-02-27 05:45] LABS: CALCIUM-PROTEIN CORRECTED 8.3 MG/DL (8.5-10.1)
[2017-02-27] MEDS ORDERED: Vancomycin Consult Pharmacy 1 EA OTHER SCH (05:45)
[2017-02-27] MEDS ORDERED: LACTATED RINGER'S 1000 ML INJ 1,000 ML IV ONE (05:45)
[2017-02-27] MEDS ORDERED: VANCOMYCIN 1,500 MG/NS 500 ML IV ONE ×2 (06:00)
[2017-02-27] MEDS ORDERED: CALCIUM CHLORIDE INJ 2 GM in DEXTROSE 5% IN WATER 100ML INJ 100 ML IV ONE ×2 (06:00)
[2017-02-27] MEDS: HYDROCORTISONE SOD SUCCINATE 100 MG VIAL IV SCH ×3 (06:22→23:30)
[2017-02-27] MEDS: METOCLOPRAMIDE HCL 10 MG/2 ML VIAL IV PUSH SCH ×3 (06:22→22:00)
[2017-02-27] MEDS: PIPERACIL-TAZO 3.375 GM PREMIX 50 ML IV SCH ×4 (06:22→23:30)
[2017-02-27] MEDS: NOREPINEPHRINE-DEXTROSE DRIP 250 ML IV PRN ×2 (06:49→14:52)
[2017-02-27] MEDS: CHLORHEXIDINE 0.12% (ORAL KIT) 15 ML CUP MT SCH ×2 (08:00→20:00)
[2017-02-27] MEDS: INSULIN NovoLIN REGULAR SUPPLEMENTAL SCALE SQ SCH ×4 (08:00→21:00)
[2017-02-27] MEDS ORDERED: MAGNESIUM SULFATE 1 GM PREMIX 100 ML IV ONE ×2 (08:15→12:45)
--- NOTE | 2017-02-27 08:21 | HHI.CCPN ---
Subjective Remarks/Hospital Course Date of admission: 01/22 Date of critical care medicine consult 02/10 due to acute hypoxemic respiratory failure requiring emergent intubation 62-year-old male with a past medical history of hypertension, hyperlipidemia, diabetes mellitus, gout, uric acid kidney stones, kidney disease of unknown stage who originally presented to [facility] emergency department on 01/22 after a fall in which he sustained a right distal ulna fracture. He had been experiencing a gradual primarily lower extremity weakness as well as upper extremity weakness that was progressive. Neurology consult was obtained. MRI revealed no acute stroke. He had multifocal white matter changes. Tiny lacunar infarcts of the brainstem. Lumbar MRI report states L4-L5 disc protrusion with cetnral canal stenosis. Dr. Blackwell evaluated and states no cord compression on MRI C/T spine and recommended nonoperative management. Symptoms were felt to be consistent with transverse myelitis and he underwent Solumedrol 250 mg IV q6 hours 01/27-02/02. He also was found to have occlusive thrombus in the bilateral posterior tibial veins. Heparin was being avoided because he had traumatic lumbar puncture on 01/26 and 02/01. IVC filter was placed 01/25. He was undergoing physical therapy, reportedly making some improvements with plan to eventually discharged home with his son (max assist standing, and bed to chair per PT note). Apparently he had some vomiting the evening of 02/09 and additional vomiting on 02/10. He had a fever 102.8 on 02/09. Last recorded bowel movement was 02/03. Tonight he had acute onset of severe hypoxemia and respiratory distress. [facility] called and he was brought emergently to [facility] where his sats were 64% on 100% nonrebreather with mean arterial pressure 44. He was emergently intubated, CVL and art line placed. He is in septic shock. SUBJ: 02/11: Patient remains intubated sedated, critically ill. FiO2 reduced to 80% after increasing PEEP to 12. In severe septic shock Levophed at 16 mcg/m, vasopressin at 0.04 international units. D/W vascular surgery Dr. Enciso. He performed bedside Left upper extremity incision and debridement and excision of septic cephalic vein. 02/12: Remains intubated sedated profoundly septic, in shock on vasopressin and 7 mcg/min Levophed. FiO2 has improved to 45%, WBC count remains elevated with 20 ,000 white count significant left shift. Slight improvement in creatinine 2.9 urine output 750 ml 24 hours. 2-D echo shows LV ejection fraction 20-25%, no vegetation reported. Blood cultures 4 staph aureus. Wound culture pending 02/13: Remains critically ill but stable to improving. WBC count is down to 16, creatinine improving to 2.36. Off all pressors. Urine output also improving. 1.5L in 24 hours 02/14: Extubated 02/13. Tolerating well. WBC now down to 12.8. Creat improving 2.3 to 2. UO 3.4L. remains off all pressors. Was started on Precedex yesterday night for agitation, currently on 0.5 g per KG per hour. Chest x-ray shows left more than right air space disease 02/20/17 Re consult: 62-year-old male who was originally admitted for lower extremity weakness and found to have what was thought to be possible transverse myelitis. His hospital course his included a healthcare associated pneumonia, septic thrombophlebitis, DVT. He was most recently in the hospital floor where he had significant nausea and vomiting and diarrhea. His C. difficile test was recently negative. However, he has experienced worsening acute on chronic renal failure, hypotension, tachycardia, and severe hypoxemia. He did have a bout of vomiting earlier today, and his hospitalist attending suspects that he may have aspirated. He arrives by rapid response to the ICU with a nonrebreather in place in severe respiratory distress with SPO2 of 85%. I emergently intubate the patient, see separate procedure note for details. At this point the patient was hypotensive and tachycardic. He does have a history of an EF of 20%, however clinically he appears in florid septic shock. I placed central line and arterial line started vasopressors and gentle IV fluid resuscitation with 1 L of LR. Patient today was empirically broadened to vancomycin and Zosyn from his oxacillin which was initially treating MSSA bacteremia. He is recultured. Critical-care medicine is consulted to evaluate and manage his worsening multiorgan system failure and decompensated septic shock 02/21: Patient remains intubated sedated. Becomes anxious tachypnea on sedation lightening. Chest x-ray shows mild left lower lobe infiltrate. WBC count is slightly improved today from 23.2 t0 21. C Diff negative. UO adequate, creat slightly worsening. 1.57 today 02/22: Remains intubated sedated tolerated CPAP yesterday, plan is for EGD/ Colonscopy. WBC count back to normal. UO adequate. Creat stable 02/23: Tolerating CPAP trials following commands. Will do a spontaneous breathing trials. Status post EGD colonoscopy yesterday -Gastritis, esophagitis. Diverticulosis and multiple polyps. Urine output adequate but creatinine increasing to 1.7 with patient requiring multiple straight catheterization. We'll reinsert Sloan. 02/24: Breathing comfortably 24 hours after extubation. Protects airway well. 02/25: Excoriate bottom, will place rectal FMS. Start pureed diet. 02/26: Afebrile. Complaining of nausea and vomiting this afternoon. Increased stool output. Continue potassium replacement today. Subjective 02/27: 10 PM overnight, acutely hypotensive. Received 3 units PRBCs. Antibiotic coverage broadened to piperacillin/tazobactam, cortisol and 1 dose of vancomycin. Oxacillin drip currently on hold. Symptomatically, patient continues to vague abdominal pain/nausea vomiting which is unchanged for the past several days. Lipase elevated yesterday. Lactic acid normal. Troponin normal. Urinary retention after removal of Sloan. Straight catheter 1300. Cc Objective Vital Signs Date Time Temp Pulse Resp B/P (MAP) Pulse Ox O2 Delivery O2 Flow Rate FiO2 02/27/17 08:06 98.1 93 18 108/64 100 02/26/17 20:48 Nasal Cannula 3.00 02/23/17 10:22 40 Intake and Output 02/27/17 02/27/17 02/28/17 08:00 16:00 00:00 Intake Total 4386 ml Output Total 1400 ml Balance 2986 ml Result Diagram: 02/27/17 0430 02/27/17 0430 Other Results Microbiology Date/Time Source Procedure Growth Status 02/27/17 03:48 Blood Peripheral Aerobic Blood Culture Pending Received 02/27/17 03:48 Blood Peripheral Anaerobic Blood Culture Pending Received 02/01/17 09:55 Cerebral Spinal Fluid Lumbar Puncture Fungal Smear - Final NO FUNGAL ELEMENTS SEEN. Resulted 02/01/17 09:55 Cerebral Spinal Fluid Lumbar Puncture Fungal Culture - Preliminary NO GROWTH IN 3 WEEKS Resulted 02/17/17 05:55 Stool Stool Stool Occult Blood (GREGORY) - Final HEMOCCULT POSITIVE Complete 02/20/17 12:55 Sputum Endotracheal Gram Stain - Final Complete 02/20/17 12:55 Sputum Endotracheal Sputum Culture - Final HEAVY GROWTH NORMAL RESPIRATORY EARL Complete 02/20/17 12:10 Urine Clean Catch Urine Culture - Final NO GROWTH IN 48 HOURS. Complete 02/11/17 09:10 Abscess Arm Acid Fast Stain - Final NO ACID FAST BACILLI SEEN Resulted 02/11/17 09:10 Abscess Arm Mycobacterial Culture - Preliminary NO GROWTH IN 2 WEEKS Resulted Imaging Last Impressions Abdomen X-Ray 02/26/17 0000 Signed Impressions: Service Date/Time: Sunday, February 26, 2017 14:52 - CONCLUSION: 1. Nonobstructive bowel gas pattern. Juan Bhakta MD Chest X-Ray 02/24/17 0600 Signed Impressions: Service Date/Time: Friday, February 24, 2017 03:58 - CONCLUSION: 1. Unchanged left lower lobe infiltrate with small effusion. Candido Mendoza Jr., MD Abdomen/Pelvis CT 02/19/17 0000 Signed Impressions: Service Date/Time: Sunday, February 19, 2017 19:09 - CONCLUSION: 1. Areas of calcification seen in the right renal collecting system, right renal pelvis, and proximal right ureter. These appear to layer and be dependent suggesting likely to represent smaller areas of milk of calcium or small stones. There is mild dilatation of the right renal collecting system and right ureter. A definite obstructing stone at this time is not seen. 2. A small amount of air within the urinary bladder. This should be correlated with any recent catheterization. 3. Mild bilateral pleural effusions with accompanying atelectasis or consolidation at the left base. The consolidation was present previously. 4. Prominent degenerative change in the lumbar spine and at the hip joints bilaterally. Angelo Manzo MD Upper Extremity Ultrasound 02/10/17 0000 Signed Impressions: Service Date/Time: Friday, February 10, 2017 18:46 - CONCLUSION: Occlusive thrombus in the cephalic and basilic veins. Benjamin Person MD Lung Scan- Nuclear Medicine 02/10/17 0000 Signed Impressions: Service Date/Time: Friday, February 10, 2017 22:17 - CONCLUSION: Low probability pulmonary embolism. Candido Patton MD Head CT 02/10/17 0000 Signed Impressions: Service Date/Time: Friday, February 10, 2017 23:51 - CONCLUSION: Negative noncontrast CT brain. Candido Patton MD Chest CT 02/10/17 Signed Impressions: Service Date/Time: Friday, February 10, 2017 23:56 - CONCLUSION: Left lower lobe collapse with consolidation. Patchy infiltrates the medial right lower lung. Candido Patton MD Wrist X-Ray 02/06/17 Signed Impressions: Service Date/Time: Monday, February 06, 2017 12:50 - CONCLUSION: Minimally displaced distal radius and ulnar fractures. Armando Dodd MD Lumbar Puncture Fluoroscopy 02/01/17 Signed Impressions: Service Date/Time: January 09:35 - CONCLUSION: Uncomplicated fluoroscopically guided lumbar puncture. CSF was clear. Nabeel Peralta MD Head Magnetic Resonance Angiography 01/27/17 Signed Impressions: Service Date/Time: Friday, January 27, 2017 10:33 - CONCLUSION: No intracranial vascular abnormality is identified. There is no aneurysm visualized. Angelo Allen MD IVC Filter Placement X-Ray 01/25/17 Signed Impressions: Service Date/Time: January 10:29 - CONCLUSION: Uncomplicated inferior vena cava filter placement as above. Yung Fowler MD Thoracic Spine MRI 01/24/17 Signed Impressions: Service Date/Time: Tuesday, January 24, 2017 22:29 - CONCLUSION: 1. Mild degenerative spondylosis most prominently at T11-L1 with slight effacement of the anterior thecal sac and left lateral recess. No significant neural foraminal stenosis. 2. No acute fracture. Juan Bhakta MD Renal Ultrasound 01/23/17 Signed Impressions: Service Date/Time: Monday, January 23, 2017 08:53 - CONCLUSION: 1. Evidence of chronic parenchymal disease of both kidneys. No obstructive uropathy or other acute abnormality demonstrated. 2. Trace ascites, nonspecific. Angelo Garrido MD Lumbar Spine MRI 01/23/17 Signed Impressions: Service Date/Time: Monday, January 23, 2017 17:01 - CONCLUSION: 1. At L4-5 is a broad-based disc protrusion with severe central canal and lateral recess stenosis and flattening of the exiting right L4 nerve root. 2. L5-S1 there is a disc protrusion and moderate stenosis with flattening of the exiting L5 nerve roots bilaterally. 3. At L3-4 there is a moderate to severe central stenosis and lateral recess stenosis with mild foraminal stenosis. 4. No acute fracture or spondylolisthesis. Trace Holloway MD Lower Extremity Ultrasound 01/23/17 Signed Impressions: Service Date/Time: Monday, January 23, 2017 09:53 - CONCLUSION: Bilateral focal lower extremity DVT involving the posterior tibial veins. Angelo Garrido MD Cervical Spine MRI 01/23/17 Signed Impressions: Service Date/Time: Monday, January 23, 2017 17:01 - CONCLUSION: 1. Multilevel cervical spine degenerative changes as above. 2. Mild degrees of spinal stenosis at C3/C4-C6/C7. No cord compression or cord signal abnormality. 3. Age indeterminate left paracentral/foraminal disc protrusion at C6/C7. 4. Multilevel foraminal stenosis, most severe on the left at C6/C7. Please see individual levels above. 5. No fracture or subluxation of the cervical spine. Angelo Garrido MD Brain MRI 01/23/17 Signed Impressions: Service Date/Time: Monday, January 23, 2017 17:01 - CONCLUSION: 1. No acute stroke or other acute intracranial abnormality demonstrated. 2. Moderate severity chronic white matter changes, nonspecific but most likely related to chronic small vessel disease. 3. Few scattered tiny lacunar infarcts of the brainstem. 4. Given the findings are not entirely specific, clinical evaluation for possible multiple sclerosis recommended. Angelo Garrido MD Knee X-Ray 01/22/172053 Signed Impressions: Service Date/Time: Sunday, January 22, 2017 21:17 - CONCLUSION: 1. Evidence of moderate to large joint effusion. 2. No acute fracture or malalignment. 3. Mild 3 compartment osteoarthritic change. Benjamin Person MD Hip and Pelvis X-Ray [id number]/22/172053 Signed Impressions: Service Date/Time: Sunday, January 22, 2017 21:10 - CONCLUSION: 1. Mild to moderate degenerative change of both hips with no acute fracture or malalignment. There is flattening and remodeling of the right humeral head. Benjamin Person MD Objective Remarks GENERAL: 62-year-old male, critically ill currently resting in bed on nasal cannula HEENT: Normocephalic. Atraumatic. Pupils equal, round, reactive, conjugate. NECK: Trachea is midline. No JVD or thyromegaly CHEST: Essentially clear to auscultation without wheezes rales or rhonchi. Distant. CARDIOVASCULAR: S1-S2 normal no murmurs. No JVD. ABDOMEN: Soft, nontender, vertebral. Tender to deep palpation throughout all 4 quadrants. No guarding or rigidity. Hypoactive bowel sounds. MUSCULOSKELETAL: Pulses 2+. Trace to 1+ bilateral upper and lower extremity edema. Wound VAC in left upper extremity NEUROLOGICAL: 4 out of 5 strength bilateral in upper extremities, 3 out of 5 in the lower extremities. Conversant, follows commands Procedures IVC filter placement 01/25/2017 LP 01/26/2017 A/P Assessment and Plan NEURO/PSYCH: Acute metabolic encephalopathyQuadriparesis secondary to suspected transverse myelitis Recurrent falls Suspected transverse myelitis. Received methylprednisolone 250 mg IV every 6 hours 01/27-02/02, started back on hydrocortisone 02/21/17, initially tapering to 50 mg IV every 8 hours starting received 1 dose at 2100 prior to becoming hypotensive. Currently back on 100 mg IV every 8 hours Hydrocodone/acetaminophen 5-7.5/325 every 4 hours. Pain Morphine sulfate for breakthrough pain LP 01/26 and 02/01. CSF culture negative 01/26, 02/01 Oligoclonal bands negative. CSF/serum IgG index is not elevated. VDRL nonreactive. Cryptococcal antigen negative. Brain MRI 01/23 no acute stroke. Few scattered lacunar infarcts of the brainstem. Moderate chronic white matter changes. MRI cervical/thoracic spine- mild spinal stenosis C3/C4 to C6/C7. No cord compression. RPR negative Neurology has been following, Dr. Crenshaw. Repeat CT brain 02/10 - negative Continue PT/OT RESP: Acute hypoxemic respiratory failure - resolved Healthcare associated pneumonia/Aspiration Pneumonia Nasal cannula to maintain saturations greater than equal to 92% Incentive spirometry while awake VQ scan 02/10 low probability for PE. CT chest02/10 - left lower lobe collapse and consolidation. Right lower lobe infiltrate. CXR 02/21. mild LLL infiltrate Extubated 02/23. 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 Continue atorvastatin 10 mg by mouth daily for dyslipidemia. Will check CT chest/abdomen and pelvis Troponin 0.03 overnight. EKG with nonspecific ST-T changes. Patient denying chest discomfort. 2-D echocardiogram 01/11 revealed EF 20-25%. Per to really reduce left ventricular systolic function. Mild TR. Pulmonary arterial pressures were normal around 20 GI: Severe protein energy malnutrition Nausea/vomiting Diarrhea Gastritis Diverticulosis Internal and external hemorrhoids Hiatal hernia Elevated lipase CT abdomen and pelvis 02/10 atrophic left kidney. Bilateral inguinal hernias fat- containing. Nonobstructing 12 mm right kidney stone repeat CT abd/pelvis did not show evidence of obstruction. patient clinically has been having diarrhea (c. diff negative 02/19). also with nausea/vomiting of unclear etiology. EGD/Colonoscopy-02/22/17 showed gastritis esophagitis, hiatal hernia, diverticulosis and multiple polyps in descending colon and sigmoid which were snared biopsied. Biopsy pending Rectal tube removed overnight Check C. difficile Currently in cholestyramine 4 g every 12 hours for diarrhea Dicyclomine 20 mg 3 times a day FEN/RENAL: Acute kidney injury in the setting of Chronic kidney disease stage 3-4 History of uric acid kidney stones with prior stent BPH Removed Sloan due to urinary retention and worsening creatinine. Monitor intake and output q1hr. Monitor electrolytes. RIOS/SPEP negative. Urology has followed for uric acid nephrolithiasis No indication for nephrostomy tube at this time. Continue tamsulosin 0.4 mg by mouth daily for BPH ID: Septic shock- Abscess and Suppurative thrombophlebitis left upper extremity MSSA bacteremia Acute aspiration pneumonia/HCAP Broad-spectrum antibiotics with oxacillin 2 g IV every 4 hours till March 26 initially. This is been held in light of current change in a bike regimen to fluconazole, piperacillin/tazobactam. Receive 1 dose of vancomycin overnight due to unclear etiology of hypotension Blood cultures 2, UA pending 02/27 Will asif scanned again including CT chest, abdomen and pelvis ID on board. f/u cultures form 02/20/17 blood, sputum, urine cultures-all negative to date HEME: DVT, bilateral posterior tibial vein, IVC filter Septic thrombophlebitis with occlusive thrombus mid cephalic and basilic vein side Anemia unclear etiology Ultrasound 01/23/17 - Bilateral lower extremity with occlusive posterior tibial vein DVTs. Heparin was initially started for DVT but was placed on hold due to LP with suspected traumatic tap. Currently holding full anticoagulation with enoxaparin 100 mg IV twice a day due to anemia IVC filter was placed 01/25/17. Ultrasound LUE 02/10 occlusive thrombus mid cephalic vein, basilic vein. Serial hemoglobins every 6 hours. Transfuse 3 units PRBCs overnight. Check smear, LDH and haptoglobin. ENDO: Diabetes mellitus Hypoglycemia History of prior adrenal insufficiency with shock Gout EGD colonoscopy completed 02/22. gastritis and esophagitis, colon polyps Started Hydrocortisone 100 mg IV q8hr 02/21/17 (Recent high dose steroids use now hypotensive, hypoglycemic) Currently HC at 100 every 8 Accu-Cheks to maintain euglycemia MSK: Right distal ulna fracture. Dr. Nathan with orthopedics has evaluated and recommended nonoperative management. Right wrist splint in place. PROPH: Pantoprazole 40 mg IV twice a day for stress ulcer prophylaxis. Has IVC filter. Therapeutic enoxaparin early on hold ACCESS: Left subclavian CVL placed 02/20 level III follow-up Janes Aguiar MD Feb 27, 2017 08:21
[2017-02-27] MEDS ORDERED: SPIRONOLACTONE 25 MG TAB PO SCH (09:00)
[2017-02-27] MEDS: SODIUM CHLORIDE 0.9% FLUSH 10 ML FLUSH IV FLUSH SCH ×2 (09:00→21:11)
[2017-02-27 09:26] LABS: BACTERIA, URINE MANY /hpf; BLOOD, URINE LARGE (NEG); COMMENT (UR) CATH-CULTURE IND; CULTURE IF INDICATED CATH CULTURE IND; GLUCOSE,URINE 150 mg/dL (NEG); KETONE, URINE TRACE mg/dL (NEG); MUCUS URINE FEW /lpf (OCC); NITRITE,URINE NEG (NEG); TRANSITIONAL EPI CELLS, URINE 3 /hpf; URINE COLOR DARK-RED (YELLW/STRAW)
--- NOTE | 2017-02-27 10:03 | EKG ---
Date Performed: 02/26/2017 Time Performed: 21:10:58 PTAGE: 62 years EKG: --- Warning: Data quality may affect interpretation --- Sinus rhythm . Inferior T wave changes are nonspecific Borderline ECG PREVIOUS TRACING : 02/20/2017 11.42 Compared to prior tracing no significant change DOCTOR: Yung Fermin Interpretating Date/Time 02/27/2017 10:00:10
[2017-02-27] MEDS: CHOLESTYRAMINE LIGHT 4 GM PACKAGE PO SCH ×2 (10:32→21:00)
[2017-02-27] MEDS: LACTOBACILLUS ACIDOPHILUS TAB PO SCH ×3 (10:33→17:34)
[2017-02-27] MEDS: DICYCLOMINE HCL 20 MG TAB PO SCH ×3 (10:37→17:34)
[2017-02-27] MEDS: FLUCONAZOLE 400 MG PREMIX BAG 200 ML IV SCH (10:45)
[2017-02-27 12:17] LABS: HEMATOCRIT 24.3 % (39.0-51.0); REVIEW FLAG FINAL
--- NOTE | 2017-02-27 12:36 | HHI.NPPN ---
Subjective History of Present Illness 61-year-old with history of urinary stone Additional Remarks Patient is hypotensive Review of Systems General Constitutional: Fatigue Objective Data Data 02/27/17 02/28/17 19:00 07:00 Intake Total 2584 ml Balance 2584 ml IV Total 1934 ml Packed Cells 400 ml Blood Product IV Normal Saline Flush 250 ml Vital Signs Date Time Temp Pulse Resp B/P (MAP) Pulse Ox O2 Delivery O2 Flow Rate FiO2 02/27/17 11:48 100 Nasal Cannula 2.00 02/27/17 08:31 97.4 91 19 103/66 99 02/27/17 08:06 98.1 93 18 108/64 100 02/27/17 06:49 90 75/51 02/27/17 06:00 90 02/27/17 04:35 97.7 93 18 90/55 100 02/27/17 04:20 97.7 89 11 93/58 100 02/27/17 04:00 97.7 93 18 77/52 (60) 100 02/27/17 04:00 93 02/27/17 02:35 97.7 89 15 84/50 100 02/27/17 02:35 97.6 87 21 81/55 100 02/27/17 02:00 82 02/27/17 02:00 82 02/27/17 01:27 79 21 70/49 100 02/27/17 01:18 97.7 17 70/49 100 02/27/17 00:33 97.9 81 17 96/59 100 02/27/17 00:18 97.3 84 22 81/32 100 02/27/17 00:00 97.9 82 17 81/52 (62) 100 02/27/17 00:00 82 02/26/17 22:00 90 02/26/17 20:48 96 Nasal Cannula 3.00 02/26/17 20:00 90 02/26/17 20:00 97.7 90 17 77/60 (66) 100 02/26/17 19:00 100 Nasal Cannula 2.00 02/26/17 18:00 98 02/26/17 16:00 98.7 78 20 157/89 (111) 99 02/26/17 16:00 78 02/26/17 14:00 100 -: 02/27/17 1200 02/27/17 0430 Microbiology 02/27/17 Aerobic Blood Culture, Received Pending 02/27/17 Anaerobic Blood Culture, Received Pending 02/27/17 Aerobic Blood Culture, Received Pending 02/27/17 Anaerobic Blood Culture, Received Pending 02/27/17 Urine Culture, Received Pending Physical Exam General Appearance: No Acute Distress, Comfortable, Pale Eyes Eye Exam: Pupils Equal Throat Throat Exam: Oral Mucosa [place] & Moist Neck Neck Exam: Neck Supple Pulmonary Resp Exam: Crackles, Rhonchi, Decreased Bases, Diminished Breath Sounds Cardiology CV Exam: Regular, Normal Sinus Rhythm Gastrointestinal/Abdomen GI Exam: Soft, Non-Tender, Bowel Sounds Present Extremeties Extremities Exam: Moderate Edema Neurologic Neuro Exam: Alert, Awake Assessment/Plan Problem List: (1) Acute renal failure ICD Codes: N17.9 - Acute kidney failure, unspecified Status: Acute Plan: Patient developed Hypotension,sepsis staph aureus respiratory failure and increase WBC. Had aspiration pneumonia, developed sepsis with ARF again creatinine declined slightly post hydration has another event hypotension overnight, urinary retention 1.3 L obtained Septic broad spectrum antibiotic post EGD/Colonoscopy Diverticulosis. Creatinine is improving, now 1.21. K better mg improved Mgso4 I gm as border line (2) CKD (chronic kidney disease) stage 3, GFR 30-59 ml/min ICD Codes: N18.3 - Chronic kidney disease, stage 3 (moderate) Status: Chronic Plan: Ultrasound revealed chronic kidney disease there is no kidney stones (3) Diabetes ICD Codes: E11.9 - Type 2 diabetes mellitus without complications Plan: Continue to monitor (4) Distal end of ulna fracture, closed ICD Codes: S52.609A - Unspecified fracture of lower end of unspecified ulna, initial encounter for closed fracture Status: Acute Plan: Orthopedic is following Problem Qualifiers (1) Acute renal failure: Qualified Codes: N17.9 - Acute kidney failure, unspecified Laura Liao MD Feb 27, 2017 12:36
[2017-02-27] MEDS ORDERED: DIATRIZOATE MEGLUM/DIATRIZOATE SOD 9 ML CUP PO ONE (13:00)
[2017-02-27] MEDS: SODIUM CHLOR 0.9% 1000 ML INJ 1,000 ML IV SCH (13:00)
--- NOTE | 2017-02-27 13:33 | HHI.IDPN ---
Subjective Subjective Remarks Patient is a 62-year-old male, admitted to the hospital for evaluation of pain in his right wrist. He gave a history of falling about a week ago and apparently had immediate pain in the right wrist. He did not seek any medical attention initially because reportedly he was very busy. He eventually presented, and he was found to have a distal ulnar fracture on plain films. He also had some redness and swelling. Orthopedics saw the patient, and was being treated conservatively with the splint. During this hospitalization also he started complaining of generalized weakness but more so in his lower extremity than his upper extremity. He had swelling in both lower extremity which revealed evidence of DVT in the posterior tibial veins. Neurology had seen the patient and he underwent lumbar puncture which apparently was traumatic. Patient was therefore not given anticoagulation because of the traumatic LP, and he underwent placement of an IVC filter on January 25. Patient had another lumbar puncture on February 01. He was felt to have transverse myelitis, and he was given high-dose IV Solu-Medrol from January 27 to February 02. There was apparently some improvement in his weakness. The imaging studies done for his weakness showed some spinal stenosis, and neurosurgery was consult that and recommended that there was no surgical intervention to be done. Patient has been stabilizing, but last night apparently deteriorated, and he ended up getting intubated, and had significant hypotension requiring pressors. There was also an ultrasound done of his left upper extremity which showed DVT, and there was evidence of superior 2 thrombophlebitis. Vascular surgery was consult to it and he had IND on his left upper extremity. Patient has had some fevers since yesterday. 2 blood cultures were done yesterday and they're now reported as growing gram-positive cocci in [place] in clusters. He is currently sedated and intubated. He is on Levophed and vasopressin. A central line was placed as well as a femoral a line. He apparently had an IV in his left upper extremity and that was removed yesterday. Patient also has history of chronic kidney disease, and nephrology evaluated the patient. He was just being monitored for his renal insufficiency. Infectious disease consultation has been requested to evaluate the patient. Notes reviewed D/W RN Hypotensive and on pressors since last night Problems with intermittent N/V Hgb went down 5.8, got 3 units PRBC, Hgb went up to 7.8 No obvious source of bleeding Tolerating extubation On nasal O2 On Abx for MSSA bacteremia due to suppurative thrombophlebitis RUE, S/P OR Last (+) BC 02/12 On vanco, Diflucan and Zosyn now Antibiotics Vancomycin Zosyn Diflucan Lines LSC TLC Past Medical History Reviewed Allergies: Coded Allergies: levofloxacin (Verified Allergy, Severe, 01/22/17) Objective . Vital Signs Date Time Temp Pulse Resp B/P (MAP) Pulse Ox O2 Delivery O2 Flow Rate FiO2 02/27/17 12:00 88 02/27/17 12:00 97.3 88 15 70/54 (59) 100 02/27/17 11:48 100 Nasal Cannula 2.00 02/27/17 10:00 94 02/27/17 08:31 97.4 91 19 103/66 99 02/27/17 08:06 98.1 93 18 108/64 100 02/27/17 08:00 98.1 86 17 108/64 (79) 100 02/27/17 08:00 86 02/27/17 07:00 100 Nasal Cannula 2.00 02/27/17 06:49 90 75/51 02/27/17 06:00 90 02/27/17 04:35 97.7 93 18 90/55 100 02/27/17 04:20 97.7 89 11 93/58 100 02/27/17 04:00 97.7 93 18 77/52 (60) 100 02/27/17 04:00 93 02/27/17 02:35 97.7 89 15 84/50 100 02/27/17 02:35 97.6 87 21 81/55 100 02/27/17 02:00 82 02/27/17 02:00 82 02/27/17 01:27 79 21 70/49 100 02/27/17 01:18 97.7 17 70/49 100 02/27/17 00:33 97.9 81 17 96/59 100 02/27/17 00:18 97.3 84 22 81/32 100 02/27/17 00:00 97.9 82 17 81/52 (62) 100 02/27/17 00:00 82 02/26/17 22:00 90 02/26/17 20:48 96 Nasal Cannula 3.00 02/26/17 20:00 90 02/26/17 20:00 97.7 90 17 77/60 (66) 100 02/26/17 19:00 100 Nasal Cannula 2.00 02/26/17 18:00 98 02/26/17 16:00 98.7 78 20 157/89 (111) 99 02/26/17 16:00 78 02/26/17 14:00 100 02/27/17 02/27/17 02/28/17 15:00 23:00 07:00 Intake Total 2584 ml Balance 2584 ml IV Total 1934 ml Packed Cells 400 ml Blood Product IV Normal Saline Flush 250 ml . Laboratory Tests Test 02/26/17 06:30 02/26/17 21:17 02/26/17 22:41 02/27/17 04:30 White Blood Count 7.4 TH/MM3 12.0 TH/MM3 16.1 TH/MM3 Red Blood Count 2.94 MIL/MM3 2.19 MIL/MM3 2.69 MIL/MM3 Hemoglobin 7.9 GM/DL 5.8 GM/DL 5.8 GM/DL 7.6 GM/DL Hematocrit 24.3 % 18.2 % 23.0 % Mean Corpuscular Volume 82.6 FL 83.2 FL 85.4 FL Mean Corpuscular Hemoglobin 26.8 PG 26.4 PG 28.2 PG Mean Corpuscular Hemoglobin Concent 32.5 % 31.7 % 33.1 % Red Cell Distribution Width 18.8 % 18.7 % 16.7 % Platelet Count 165 TH/MM3 204 TH/MM3 204 TH/MM3 Mean Platelet Volume 7.8 FL 8.2 FL 8.0 FL Neutrophils (%) (Auto) 73.3 % Lymphocytes (%) (Auto) 17.2 % Monocytes (%) (Auto) 9.0 % Eosinophils (%) (Auto) 0.3 % Basophils (%) (Auto) 0.2 % Neutrophils # (Auto) 8.8 TH/MM3 Lymphocytes # (Auto) 2.1 TH/MM3 Monocytes # (Auto) 1.1 TH/MM3 Eosinophils # (Auto) 0.0 TH/MM3 Basophils # (Auto) 0.0 TH/MM3 CBC Comment DIFF FINAL Differential Comment Test 02/27/17 12:00 Hemoglobin 7.8 GM/DL Hematocrit 24.3 % Blood Smear Pathologist Review Haptoglobin 146 MG/DL Laboratory Tests Test 02/26/17 00:55 02/26/17 06:30 02/26/17 13:30 02/26/17 21:17 Potassium Level 3.0 MEQ/L 3.2 MEQ/L 2.9 MEQ/L 3.6 MEQ/L Blood Urea Nitrogen 17 MG/DL 17 MG/DL Creatinine 1.10 MG/DL 0.96 MG/DL Random Glucose 116 MG/DL 97 MG/DL Total Protein 4.8 GM/DL 4.7 GM/DL 3.9 GM/DL Calcium Level 6.7 MG/DL 6.7 MG/DL Sodium Level 145 MEQ/L 146 MEQ/L Chloride Level 113 MEQ/L 115 MEQ/L Carbon Dioxide Level 22.2 MEQ/L 22.7 MEQ/L Anion Gap 10 MEQ/L 8 MEQ/L Estimat Glomerular Filtration Rate 68 ML/MIN 79 ML/MIN Protein Corrected Calcium 7.9 MG/DL 8.4 MG/DL Magnesium Level 1.5 MG/DL 1.3 MG/DL Total Bilirubin 0.2 MG/DL Direct Bilirubin 0.1 MG/DL Indirect Bilirubin 0.1 MG/DL Aspartate Amino Transf (AST/SGOT) 19 U/L Alanine Aminotransferase (ALT/SGPT) 14 U/L Alkaline Phosphatase 104 U/L Albumin 1.6 GM/DL Amylase Level 124 U/L Lipase 982 U/L Lactic Acid Level 1.7 mmol/L Troponin I 0.03 NG/ML Test 02/27/17 04:30 02/27/17 12:00 Blood Urea Nitrogen 20 MG/DL Creatinine 1.21 MG/DL Random Glucose 222 MG/DL Total Protein 3.7 GM/DL Calcium Level 6.5 MG/DL Magnesium Level 1.7 MG/DL Sodium Level 142 MEQ/L Potassium Level 3.9 MEQ/L Chloride Level 111 MEQ/L Carbon Dioxide Level 21.3 MEQ/L Anion Gap 10 MEQ/L Estimat Glomerular Filtration Rate 61 ML/MIN Protein Corrected Calcium 8.3 MG/DL Lactic Acid Level 2.7 mmol/L Phosphorus Level 3.9 MG/DL Lactate Dehydrogenase 199 U/L Troponin I 0.04 NG/ML Lipase 1329 U/L Random Cortisol 38.6 MCG/DL Microbiology Date/Time Source Procedure Growth Status 02/27/17 03:48 Blood Peripheral Aerobic Blood Culture Pending Received 02/27/17 03:48 Blood Peripheral Anaerobic Blood Culture Pending Received 02/27/17 03:40 Blood Peripheral Aerobic Blood Culture Pending Received 02/27/17 03:40 Blood Peripheral Anaerobic Blood Culture Pending Received 02/27/17 08:32 Urine Catheterized Urine Urine Culture Pending Received Imaging Chest X-Ray 02/24/17 0600 Signed Impressions: Service Date/Time: Friday, February 24, 2017 03:58 - CONCLUSION: 1. Unchanged left lower lobe infiltrate with small effusion. Candido Mendoza Jr., MD Chest X-Ray 02/20/17 0000 Signed Impressions: Service Date/Time: Monday, February 20, 2017 11:36 - CONCLUSION: 1. Stable very small right and small left pleural effusions with left lower lobe airspace consolidation. 2. No significant interval change. Juan Bhakta MD Abdomen/Pelvis CT 02/19/17 0000 Signed Impressions: Service Date/Time: Sunday, February 19, 2017 19:09 - CONCLUSION: 1. Areas of calcification seen in the right renal collecting system, right renal pelvis, and proximal right ureter. These appear to layer and be dependent suggesting likely to represent smaller areas of milk of calcium or small stones. There is mild dilatation of the right renal collecting system and right ureter. A definite obstructing stone at this time is not seen. 2. A small amount of air within the urinary bladder. This should be correlated with any recent catheterization. 3. Mild bilateral pleural effusions with accompanying atelectasis or consolidation at the left base. The consolidation was present previously. 4. Prominent degenerative change in the lumbar spine and at the hip joints bilaterally. Angelo Manzo MD Chest X-Ray 02/12/17 0600 Signed Impressions: Service Date/Time: Sunday, February 12, 2017 03:32 - CONCLUSION: 1. Support apparatus in good position. Relatively stable basilar airspace disease and pleural effusions. Trace Holloway MD Upper Extremity Ultrasound 02/10/17 0000 Signed Impressions: Service Date/Time: Friday, February 10, 2017 18:46 - CONCLUSION: Occlusive thrombus in the cephalic and basilic veins. Benjamin Persno MD Lung Scan-V Nuclear Medicine 02/10/17 0000 Signed Impressions: Service Date/Time: Friday, February 10, 2017 22:17 - CONCLUSION: Low probability pulmonary embolism. Candido Patton MD Head CT 02/10/17 0000 Signed Impressions: Service Date/Time: Friday, February 10, 2017 23:51 - CONCLUSION: Negative noncontrast CT brain. Candido Patton MD Chest CT 02/10/17 0000 Signed Impressions: Service Date/Time: Friday, February 10, 2017 23:56 - CONCLUSION: Left lower lobe collapse with consolidation. Patchy infiltrates the medial right lower lung. Candido Patton MD Abdomen/Pelvis CT 02/10/17 Signed Impressions: Service Date/Time: Friday, February 10, 2017 23:59 - CONCLUSION: 1. Nonobstructing 12 mm calcified stone lower pole right kidney. 2. Atrophic left kidney with significant cortical thinning. 3. Bilateral fat-containing inguinal hernias, large on the right, and moderate on the left. 4. Consolidative collapse of the left lower lobe. Candido Patton MD Abdomen X-Ray 02/10/17 0000 Signed Impressions: Service Date/Time: Friday, February 10, 2017 08:14 - CONCLUSION: No acute abdominal abnormality is identified. Angelo Allen MD Wrist X-Ray 02/06/17 0000 Signed Impressions: Service Date/Time: Monday, February 06, 2017 12:50 - CONCLUSION: Minimally displaced distal radius and ulnar fractures. Armando Dodd MD Lumbar Puncture Fluoroscopy 02/01/17 0000 Signed Impressions: Service Date/Time: January 09:35 - CONCLUSION: Uncomplicated fluoroscopically guided lumbar puncture. CSF was clear. Nabeel Peralta MD Head Magnetic Resonance Angiography 01/27/17 0000 Signed Impressions: Service Date/Time: Friday, January 27, 2017 10:33 - CONCLUSION: No intracranial vascular abnormality is identified. There is no aneurysm visualized. Angelo Allen MD IVC Filter Placement X-Ray 01/25/17 0000 Signed Impressions: Service Date/Time: January 10:29 - CONCLUSION: Uncomplicated inferior vena cava filter placement as above. Yung Fowler MD Thoracic Spine MRI 01/24/17 0000 Signed Impressions: Service Date/Time: Tuesday, January 24, 2017 22:29 - CONCLUSION: 1. Mild degenerative spondylosis most prominently at T11-L1 with slight effacement of the anterior thecal sac and left lateral recess. No significant neural foraminal stenosis. 2. No acute fracture. Juan Bhakta MD Renal Ultrasound 01/23/17 Signed Impressions: Service Date/Time: Monday, January 23, 2017 08:53 - CONCLUSION: 1. Evidence of chronic parenchymal disease of both kidneys. No obstructive uropathy or other acute abnormality demonstrated. 2. Trace ascites, nonspecific. Angelo Garrido MD Lumbar Spine MRI 01/23/17 Signed Impressions: Service Date/Time: Monday, January 23, 2017 17:01 - CONCLUSION: 1. At L4-5 is a broad-based disc protrusion with severe central canal and lateral recess stenosis and flattening of the exiting right L4 nerve root. 2. L5-S1 there is a disc protrusion and moderate stenosis with flattening of the exiting L5 nerve roots bilaterally. 3. At L3-4 there is a moderate to severe central stenosis and lateral recess stenosis with mild foraminal stenosis. 4. No acute fracture or spondylolisthesis. Trace Holloway MD Lower Extremity Ultrasound 01/23/17 Signed Impressions: Service Date/Time: Monday, January 23, 2017 09:53 - CONCLUSION: Bilateral focal lower extremity DVT involving the posterior tibial veins. Agnelo Garrido MD Cervical Spine MRI 01/23/17 Signed Impressions: Service Date/Time: Monday, January 23, 2017 17:01 - CONCLUSION: 1. Multilevel cervical spine degenerative changes as above. 2. Mild degrees of spinal stenosis at C3/C4-C6/C7. No cord compression or cord signal abnormality. 3. Age indeterminate left paracentral/foraminal disc protrusion at C6/C7. 4. Multilevel foraminal stenosis, most severe on the left at C6/C7. Please see individual levels above. 5. No fracture or subluxation of the cervical spine. Angelo Garrido MD Brain MRI 01/23/17 Signed Impressions: Service Date/Time: Monday, January 23, 2017 17:01 - CONCLUSION: 1. No acute stroke or other acute intracranial abnormality demonstrated. 2. Moderate severity chronic white matter changes, nonspecific but most likely related to chronic small vessel disease. 3. Few scattered tiny lacunar infarcts of the brainstem. 4. Given the findings are not entirely specific, clinical evaluation for possible multiple sclerosis recommended. Angelo Garrido MD Knee X-Ray 01/22/[id number] Signed Impressions: Service Date/Time: Sunday, January 22, 2017 21:17 - CONCLUSION: 1. Evidence of moderate to large joint effusion. 2. No acute fracture or malalignment. 3. Mild 3 compartment osteoarthritic change. Benjamin Person MD Hip and Pelvis X-Ray [id number]/22/[id number] Signed Impressions: Service Date/Time: Sunday, January 22, 2017 21:10 - CONCLUSION: 1. Mild to moderate degenerative change of both hips with no acute fracture or malalignment. There is flattening and remodeling of the right humeral head. Benjamin Person MD Physical Exam GENERAL: Awake, NAD SKIN: Warm and dry. No generalized rash. Has ecchymoses in UE EYES: [place] conjunctiva. No petechia or hemorrhage. Pupils equal, round and reactive to light. No scleral icterus. EARS, NOSE AND THROAT: Nose without bleeding or purulent nasal discharge. Moist mucosa NECK: Trachea midline. Supple and no meningeal signs CARDIOVASCULAR: Regular rate and rhythm. Soft heart sounds. No murmurs, rubs or gallops heard RESPIRATORY: Coarse BS bilaterally, decreased on L base ABDOMEN: Soft, mildly distended, tender on R side, bowel sounds present and normoactive, no guarding, no rebound EXTREMITIES: No clubbing, cyanosis. Both hands less edematous. Has evidence of multiple gouty tophi in both hands and feet. LUE - wound vac in place NEUROLOGICAL: Awake and following PSYCHIATRIC: Calm and cooperative LINE: Line with no evidence of infection Assessment & Plan Remarks IMPRESSION New shock, sepsis, recurrent, etiology? - had low Hgb, got 3 units PRBC - remains on pressors - has elevated amylase and lipase. Anemia, ?bleed, ?retroperitoneal Elevated amylase and lipase MSSA sepsis, with shock, due to suppurative thrombophlebitis LUE, S/P I and D and excision of portion of cephalic vein - off pressors Respiratory failure, has had several intubations - extubated Recent Rx 7 days high dose solumedrol for transverse myelitis Wu LE DVT has IVC filter placed 01/25 - ?hypercoagulable state Chronic kidney disease Known DM, HTN Gouty tophi both hands and feet Diarrhea, C diff negative Low grade temps RECOMMENDATION Continue empiric Abx for new shock: vanco, Zosyn and Diflucan Vanco will cover the MSSA - needs MSSA Rx until Mar [address] chest, A/P Monitor temps Monitor progress D/W RN D/W Dr Aguiar ([facility]) Irene Edwards MD Feb 27, 2017 13:33
[2017-02-27 15:02] LABS: BICARBONATE 18.2 MEQ/L (21.0-32.0); POTASSIUM 4.2 MEQ/L (3.5-5.1)
--- NOTE | 2017-02-27 15:08 | HHI.GIFU ---
Subjective Remarks Resting in bed. Resp. labored, shallow, tachypneic. Denies nausea/vomiting. No abdominal pain. Had one "smear" bowel movement earlier today. Diarrhea improved. No obvious blood loss. (Nena Driver) Objective Vitals I&O Vital Signs Date Time Temp Pulse Resp B/P (MAP) Pulse Ox O2 Delivery O2 Flow Rate FiO2 02/27/17 14:52 92 83/55 02/27/17 12:00 88 02/27/17 12:00 97.3 88 15 70/54 (59) 100 02/27/17 11:48 100 Nasal Cannula 2.00 02/27/17 10:00 94 02/27/17 08:31 97.4 91 19 103/66 99 02/27/17 08:06 98.1 93 18 108/64 100 02/27/17 08:00 98.1 86 17 108/64 (79) 100 02/27/17 08:00 86 02/27/17 07:00 100 Nasal Cannula 2.00 02/27/17 06:49 90 75/51 02/27/17 06:00 90 02/27/17 04:35 97.7 93 18 90/55 100 02/27/17 04:20 97.7 89 11 93/58 100 02/27/17 04:00 97.7 93 18 77/52 (60) 100 02/27/17 04:00 93 02/27/17 02:35 97.7 89 15 84/50 100 02/27/17 02:35 97.6 87 21 81/55 100 02/27/17 02:00 82 02/27/17 02:00 82 02/27/17 01:27 79 21 70/49 100 02/27/17 01:18 97.7 17 70/49 100 02/27/17 00:33 97.9 81 17 96/59 100 02/27/17 00:18 97.3 84 22 81/32 100 02/27/17 00:00 97.9 82 17 81/52 (62) 100 02/27/17 00:00 82 02/26/17 22:00 90 02/26/17 20:48 96 Nasal Cannula 3.00 02/26/17 20:00 90 02/26/17 20:00 97.7 90 17 77/60 (66) 100 02/26/17 19:00 100 Nasal Cannula 2.00 02/26/17 18:00 98 02/26/17 16:00 98.7 78 20 157/89 (111) 99 02/26/17 16:00 78 I/O 02/26/17 02/26/17 02/26/17 02/27/17 02/27/17 02/27/17 07:00 15:00 23:00 07:00 15:00 23:00 Intake Total 580 ml 2462 ml 3486 ml 2584 ml Output Total 300 ml 600 ml 1400 ml Balance 280 ml 1862 ml 2086 ml 2584 ml Intake Oral 480 ml 480 ml 480 ml IV Total 100 ml 1982 ml 1706 ml 1934 ml Packed Cells 800 ml 400 ml Blood Product IV Normal Saline Flush 500 ml 250 ml Output Urine Total 100 ml 1325 ml Stool Total 300 ml 500 ml 75 ml Drainage Total 0 ml 0 ml Bladder Scan Volume Amount 1000 ml 125 ml # Voids 5 Laboratory Laboratory Tests Test 02/26/17 21:17 02/26/17 22:16 02/26/17 22:41 02/27/17 04:30 White Blood Count 12.0 16.1 Red Blood Count 2.19 2.69 Hemoglobin 5.8 5.8 7.6 Hematocrit 18.2 23.0 Mean Corpuscular Volume 83.2 85.4 Mean Corpuscular Hemoglobin 26.4 28.2 Mean Corpuscular Hemoglobin Concent 31.7 33.1 Red Cell Distribution Width 18.7 16.7 Platelet Count 204 204 Mean Platelet Volume 8.2 8.0 Neutrophils (%) (Auto) 73.3 Lymphocytes (%) (Auto) 17.2 Monocytes (%) (Auto) 9.0 Eosinophils (%) (Auto) 0.3 Basophils (%) (Auto) 0.2 Neutrophils # (Auto) 8.8 Lymphocytes # (Auto) 2.1 Monocytes # (Auto) 1.1 Eosinophils # (Auto) 0.0 Basophils # (Auto) 0.0 CBC Comment DIFF FINAL Differential Comment Blood Urea Nitrogen 17 20 Creatinine 0.96 1.21 Random Glucose 97 222 Total Protein 3.9 3.7 Calcium Level 6.7 6.5 Magnesium Level 1.3 1.7 Sodium Level 146 142 Potassium Level 3.6 3.9 Chloride Level 115 111 Carbon Dioxide Level 22.7 21.3 Anion Gap 8 10 Estimat Glomerular Filtration Rate 79 61 Lactic Acid Level 1.7 Protein Corrected Calcium 8.4 8.3 Troponin I 0.03 Prothrombin Time 12.6 Prothromb Time International Ratio 1.1 Activated Partial Thromboplast Time 34.7 Fibrinogen 300 Test 02/27/17 08:32 02/27/17 12:00 Urine Color DARK-RED Urine Turbidity CLOUDY Urine pH 6.0 Urine Specific [place] 1.019 Urine Protein 100 Urine Glucose (UA) 150 Urine Ketones TRACE Urine Occult Blood LARGE Urine Nitrite NEG Urine Bilirubin NEG Urine Urobilinogen LESS THAN 2.0 Urine Leukocyte Esterase LARGE Urine RBC Urine WBC Urine Transitional Epithelial Cells 3 Urine Bacteria MANY Urine Mucus FEW Microscopic Urinalysis Comment CATH-CULTURE IND Hemoglobin 7.8 Hematocrit 24.3 Blood Smear Pathologist Review Haptoglobin 146 Lactic Acid Level 2.7 Phosphorus Level 3.9 Lactate Dehydrogenase 199 Troponin I 0.04 Lipase 1329 Random Cortisol 38.6 Date/Time Source Procedure Growth Status 02/27/17 03:48 Blood Peripheral Aerobic Blood Culture Pending Received 02/27/17 03:48 Blood Peripheral Anaerobic Blood Culture Pending Received 02/01/17 09:55 Cerebral Spinal Fluid Lumbar Puncture Fungal Smear - Final NO FUNGAL ELEMENTS SEEN. Resulted 02/01/17 09:55 Cerebral Spinal Fluid Lumbar Puncture Fungal Culture - Preliminary NO GROWTH IN 3 WEEKS Resulted 02/17/17 05:55 Stool Stool Stool Occult Blood (GREGORY) - Final HEMOCCULT POSITIVE Complete 02/20/17 12:55 Sputum Endotracheal Gram Stain - Final Complete 02/20/17 12:55 Sputum Endotracheal Sputum Culture - Final HEAVY GROWTH NORMAL RESPIRATORY EARL Complete 02/27/17 08:32 Urine Catheterized Urine Urine Culture Pending Received 02/11/17 09:10 Abscess Arm Acid Fast Stain - Final NO ACID FAST BACILLI SEEN Resulted 02/11/17 09:10 Abscess Arm Mycobacterial Culture - Preliminary NO GROWTH IN 2 WEEKS Resulted Imaging Last Impressions Abdomen X-Ray 02/26/17 0000 Signed Impressions: Service Date/Time: Sunday, February 26, 2017 14:52 - CONCLUSION: 1. Nonobstructive bowel gas pattern. Juan Bhakta MD Chest X-Ray 02/24/17 0600 Signed Impressions: Service Date/Time: Friday, February 24, 2017 03:58 - CONCLUSION: 1. Unchanged left lower lobe infiltrate with small effusion. Candido Mendoza Jr., MD Abdomen/Pelvis CT 02/19/17 0000 Signed Impressions: Service Date/Time: Sunday, February 19, 2017 19:09 - CONCLUSION: 1. Areas of calcification seen in the right renal collecting system, right renal pelvis, and proximal right ureter. These appear to layer and be dependent suggesting likely to represent smaller areas of milk of calcium or small stones. There is mild dilatation of the right renal collecting system and right ureter. A definite obstructing stone at this time is not seen. 2. A small amount of air within the urinary bladder. This should be correlated with any recent catheterization. 3. Mild bilateral pleural effusions with accompanying atelectasis or consolidation at the left base. The consolidation was present previously. 4. Prominent degenerative change in the lumbar spine and at the hip joints bilaterally. Angelo Manzo MD Upper Extremity Ultrasound 02/10/17 0000 Signed Impressions: Service Date/Time: Friday, February 10, 2017 18:46 - CONCLUSION: Occlusive thrombus in the cephalic and basilic veins. Benjamin Person MD Lung Scan- Nuclear Medicine 02/10/17 0000 Signed Impressions: Service Date/Time: Friday, February 10, 2017 22:17 - CONCLUSION: Low probability pulmonary embolism. Candido Patton MD Head CT 02/10/17 0000 Signed Impressions: Service Date/Time: Friday, February 10, 2017 23:51 - CONCLUSION: Negative noncontrast CT brain. Candido Patton MD Chest CT 02/10/17 0000 Signed Impressions: Service Date/Time: Friday, February 10, 2017 23:56 - CONCLUSION: Left lower lobe collapse with consolidation. Patchy infiltrates the medial right lower lung. Candido Patton MD Wrist X-Ray 02/06/17 0000 Signed Impressions: Service Date/Time: Monday, February 06, 2017 12:50 - CONCLUSION: Minimally displaced distal radius and ulnar fractures. Armando Dodd MD Lumbar Puncture Fluoroscopy 02/01/17 0000 Signed Impressions: Service Date/Time: January 09:35 - CONCLUSION: Uncomplicated fluoroscopically guided lumbar puncture. CSF was clear. Nabeel Peralta MD Head Magnetic Resonance Angiography 01/27/17 0000 Signed Impressions: Service Date/Time: Friday, January 27, 2017 10:33 - CONCLUSION: No intracranial vascular abnormality is identified. There is no aneurysm visualized. Angelo Allen MD IVC Filter Placement X-Ray 01/25/17 Signed Impressions: Service Date/Time: January 10:29 - CONCLUSION: Uncomplicated inferior vena cava filter placement as above. Yung Fowler MD Thoracic Spine MRI 01/24/17 Signed Impressions: Service Date/Time: Tuesday, January 24, 2017 22:29 - CONCLUSION: 1. Mild degenerative spondylosis most prominently at T11-L1 with slight effacement of the anterior thecal sac and left lateral recess. No significant neural foraminal stenosis. 2. No acute fracture. Juan Bhakta MD Renal Ultrasound 01/23/17 Signed Impressions: Service Date/Time: Monday, January 23, 2017 08:53 - CONCLUSION: 1. Evidence of chronic parenchymal disease of both kidneys. No obstructive uropathy or other acute abnormality demonstrated. 2. Trace ascites, nonspecific. Angelo Garrido MD Lumbar Spine MRI 01/23/17 Signed Impressions: Service Date/Time: Monday, January 23, 2017 17:01 - CONCLUSION: 1. At L4-5 is a broad-based disc protrusion with severe central canal and lateral recess stenosis and flattening of the exiting right L4 nerve root. 2. L5-S1 there is a disc protrusion and moderate stenosis with flattening of the exiting L5 nerve roots bilaterally. 3. At L3-4 there is a moderate to severe central stenosis and lateral recess stenosis with mild foraminal stenosis. 4. No acute fracture or spondylolisthesis. Trace Holloway MD Lower Extremity Ultrasound 01/23/17 Signed Impressions: Service Date/Time: Monday, January 23, 2017 09:53 - CONCLUSION: Bilateral focal lower extremity DVT involving the posterior tibial veins. Angelo Garrido MD Cervical Spine MRI 01/23/17 Signed Impressions: Service Date/Time: Monday, January 23, 2017 17:01 - CONCLUSION: 1. Multilevel cervical spine degenerative changes as above. 2. Mild degrees of spinal stenosis at C3/C4-C6/C7. No cord compression or cord signal abnormality. 3. Age indeterminate left paracentral/foraminal disc protrusion at C6/C7. 4. Multilevel foraminal stenosis, most severe on the left at C6/C7. Please see individual levels above. 5. No fracture or subluxation of the cervical spine. Angelo Garrido MD Brain MRI 01/23/17 0000 Signed Impressions: Service Date/Time: Monday, January 23, 2017 17:01 - CONCLUSION: 1. No acute stroke or other acute intracranial abnormality demonstrated. 2. Moderate severity chronic white matter changes, nonspecific but most likely related to chronic small vessel disease. 3. Few scattered tiny lacunar infarcts of the brainstem. 4. Given the findings are not entirely specific, clinical evaluation for possible multiple sclerosis recommended. Angelo Garrido MD Knee X-Ray 01/22/172053 Signed Impressions: Service Date/Time: Sunday, January 22, 2017 21:17 - CONCLUSION: 1. Evidence of moderate to large joint effusion. 2. No acute fracture or malalignment. 3. Mild 3 compartment osteoarthritic change. Benjamin Person MD Hip and Pelvis X-Ray [id number]/22/172053 Signed Impressions: Service Date/Time: Sunday, January 22, 2017 21:10 - CONCLUSION: 1. Mild to moderate degenerative change of both hips with no acute fracture or malalignment. There is flattening and remodeling of the right humeral head. Benjamin Person MD Physical Exam HEENT: Normocephalic; atraumatic; no jaundice. CHEST: Resp shallow, labored, tachypneic, diminished. Crackles CARDIAC: RRR, on vasopressor ABDOMEN: Soft, nondistended, mild diffuse tenderness, no hepatosplenomegaly; bowel sounds are present in all four quadrants. EXTREMITIES: Generalized edema. Edema LUE, wound vac to left extremity METEOROLOGICAL ENGINEER: Lethargic, oriented X 3 (Nena Driver) Assessment and Plan Plan ASSESSMENT: - Anemia with drop in Hgb. Hemoccult positive stools. Never had EGD/ Colonoscopy. Has bilateral DVTs. S/P EGD/Colonoscopy (02/22/17)----> 1. Gastritis antrum-biopsy esophagitis distal esophagus-biopsy duodenum normal-biopsy 2. Retroflexed views revealed a hiatal hernia 1. Diverticulosis sigmoid , descending polyp hepatic flexure-two--6 mm sessile-cold snare polypectomy with complete removal another 5 mm-cold biopsy with complete removal polyp sessile descending colon-7 mm-cold snare polypectomy with removal sigmoid-6 mm-cold snare polypectomy with complete removal random biopsies from descending colon- 2. Retroflexed views revealed internal hemorrhoids 3. Retroflexed views revealed small internal hemorrhoids 4. Revealed external hemorrhoids. Pathology still pending. HH 7.9/24.3---> 5.8/18.2. No obvious blood loss. Haptoglobin 146. LDH 199. LFT unremarkable. Pt denies n/v. He had one smear of a bowel movement according to nurse, but no obvious blood loss. S/P 3 units PRBC. Rpt. HH pending. Will get hemoccult positive stool. Hematology evaluation. CT Thorax/abdomen ordered. ? SBFT when more stable. Lovenox placed on hold. - Abdominal pain. CT abdomen and pelvis without iv contrast (02/19/17)---> areas of calcification seen in the right renal collecting system, right renal pelvis, adn proximal ureter. these appear to layer and be dependent suggesting likely to represent smaller areas of milk of calcium or small stones. There is mild dilatation of th eright renal collecting system and right ureter. A definite obstructing stone at this time is not seen. A small amount of air within hte urinary bladder. This should be correlated with any recent catheterization. Mild bilateral pleural effusions with accompanying atelectasis or consolidation at the left base. the consolidation was present previously. Prominent degenerative change in the lumbar spine and at the hip joints bilaterally. Improved, although lightly sedated. EGD/Colonoscopy as above. Improved. - Nausea, Inability to tolerate po. KUB (02/18/17)---> Normal examination. Device overlies left abdomen. Otherwise unremarkable study. CT/EGD/Colonoscopy as above. IMPROVED. - Diarrhea. On abx. CDiff negative S/P EGD/Colonoscopy, pathology pending. IMPROVED. Had one smear of a bowel movement. On questran, bentyl, solucortef, lactinex. - Respiratory Insufficiency/Hypoxia. S/P extubation. Breathing more labored, shallow, tachypneic today. - DVT LE, bilateral. Lovenox on hold secondary to drop in hgb. - Transverse myelitis, per attending. Oxacillin, per ID - LUE Abscess. S/P I&D with excision of left cephalic vein segment. Wound vac. - BREEZY, improved. Per renal. - HTN, DM, per attending. PLAN: - PITO - Await pathology - Hemoccult stool - Await CT scan abdomen and pelvis/thorax - Monitor HH - Transfuse as necessary - Cont. Bentyl - Cont. Questran - Supportive care - Notify GI of active bleeding - If CT abdomen/pelvis/thorax negative, consider hematology evaluation and possible SBFT when more stable. - Further recommendations to follow based on clinical status - Patient seen and examined by Dr. Durant and myself and this note is written on his behalf. (Nena Driver) Physician Comments Seen and examined with MURPHY, improved diarrhea. CT, SBFT for dropping H/H. Possible hematology consult. (Johnathon Durant MD) Nena Driver Feb 27, 2017 15:08 Johnathon Durant MD Feb 27, 2017 16:54
[2017-02-27 15:15] LABS: CALCIUM-PROTEIN CORRECTED 9.2 MG/DL (8.5-10.1)
[2017-02-27] MEDS ORDERED: TERBUTALINE INJ 1 MG/ML AMP SQ PRN ×2 (16:30)
[2017-02-27] MEDS ORDERED: PHENYLEPHRINE INJ 160 MG in DEXTROSE 5% IN WATE 500 ML INJ 484 ML IV PRN ×2 (16:30)
[2017-02-27 17:35] LABS: HEMATOCRIT 22.1 % (39.0-51.0); REVIEW FLAG FINAL
--- NOTE | 2017-02-27 18:34 | RADRPT ---
EXAM DATE/TIME: 02/27/2017 17:33 [facility] COMPARISON: CHEST SINGLE AP, February 24, 2017, 3:58. INDICATIONS : Shortness of breath. MEDICAL HISTORY : Sepsis. Hypertension Renal calculi. SURGICAL HISTORY : IVC filter. ENCOUNTER: Subsequent ACUITY: 2 weeks PAIN SCORE: 0/10 LOCATION: Bilateral chest FINDINGS: Stable mild infiltrate in the left lung base. Otherwise, the rest of lungs are grossly clear. There's been no significant change compared to the prior exam. The heart size is stable. No significant pleu ral effusions. No evidence of pneumothorax. The bony structures are stable. CONCLUSION: Stable mild left lower lung infiltrate. Tom Sanchez MD on February 27, 2017 at 18:32 Board Certified Radiologist. This report was verified electronically.
[2017-02-27 18:44] LABS: BLOOD GAS BASE EXCESS -11.5 mmol/L (-2-2); BLOOD GAS CARBOXYHEMOGLOBIN 1.4 % (0-4); BLOOD GAS HCO3 12 mmol/L (22-26); BLOOD GAS O2 HGB SATURATION 96 % (90-100); BLOOD GAS OXYGEN CONTENT 9.7 Vol % (12.0-20.0); BLOOD GAS PCO2 16 mmHg (38-42); BLOOD GAS PO2 98 mmHg (61-120); BLOOD GAS TOTAL HGB 7.1 G/DL (12.0-16.0); TEMP CORR TO 98.6
[2017-02-27 18:45] LABS: CRITICAL VALUE YES; FIO2 24 %; LITER FLOW 2 L/M; OXYGEN DEVICE NASAL CANNULA
[2017-02-27] MEDS ORDERED: PROTAMINE SULFATE 50 MG/5 ML VIAL IV PUSH ONE (18:45)
[2017-02-27 18:46] LABS: DRAW SITE RT BRACHIAL; NUMBER OF ARTERIAL PUNCTURES 1; STAT NO
--- NOTE | 2017-02-27 18:57 | RADRPT ---
EXAM DATE/TIME: 02/27/2017 18:12 [facility] COMPARISON: CT ABDOMEN & PELVIS W/O CONTRAST, February 19, 2017, 19:09. INDICATIONS : Abdomen pain with spesis. ORAL CONTRAST: Prescribed oral contrast ingested. RADIATION DOSE: 19.84 CTDIvol (mGy) ; Combined studies - Thorax/Abdomen/Pelvis MEDICAL HISTORY : Hypertension. SURGICAL HISTORY : None. ENCOUNTER: Initial ACUITY: 1 day PAIN SCALE: 2/10 LOCATION: abdomen TECHNIQUE: Volumetric scanning of the abdomen and pelvis was performed. Using automated exposure control and ad justment of the mA and/or kV according to patient size, radiation dose was kept as low as reasonably achievable to obtain optimal diagnostic quality images. DICOM format image data is available electro nically for review and comparison. The lack of IV contrast limits the diagnosis for certain organ pa thology. FINDINGS: LOWER LUNGS: There continues to be bilateral pleural effusions with bibasilar atelectasis. This is about the same compared to the prior exam. LIVER: Homogeneous density without lesion. There is no dilation of the biliary tree. No calcified gallston es. There is new free fluid around the liver. SPLEEN: Normal size without lesion. There is new free fluid around the spleen PANCREAS: Within normal limits. KIDNEYS: There is stable calcifications characteristic of stones in the right kidney. No hydronephrosis. The l eft kidney is atrophic and stable. No hydronephrosis. ADRENAL GLANDS: Within normal limits. VASCULAR: There is no aortic aneurysm. IVC filter in place. BOWEL/MESENTERY: There is a new large complex fluid collection in the right retroperitoneal chest anterior to the righ t psoas muscle in the mid to lower abdomen measuring 16.7 x 12.0 cm. A smaller component measuring 9. 4 x 7.5 cm is seen just posterior to the right kidney. This is most likely large retroperitoneal george dary. These findings are new compared to the prior study. The hemorrhage extends into the right lowe r quadrant of the pelvis. The bowel gas pattern is within normal limits. There is no abnormal dilatat ion of large or small bowel. ABDOMINAL WALL: There is edema in the body wall. RETROPERITONEUM: New large right Retroperitoneal hematomas in the mid to lower right lower abdomen and pelvis as descr ibed above.. BLADDER: Sloan catheter in the bladder. REPRODUCTIVE: Within normal limits. INGUINAL: There is no lymphadenopathy or hernia. MUSCULOSKELETAL: Within normal limits for patient age. Bony degenerative changes. The findings were called by telephone to the nurse taking care of this patient. CONCLUSION: 1. There has been interval development of a very large right-sided retroperitoneal hematomas in the m id to lower right abdomen with extension into the right pelvis. There is a hematoma just posterior to the right kidney measuring 9.4 x 7.5 cm. There is a larger retroperitoneal hematoma measuring 16.7 x 12.0 cm just above the right psoas muscle in the mid to lower right abdomen. 2. There is some new free fluid around the liver and spleen. 3. There continues to be bilateral pleural effusions with bibasilar atelectasis. 4. There are nonobstructing stones in the right kidney. Tom Sanchez MD on February 27, 2017 at 18:42 Board Certified Radiologist. This report was verified electronically.
[2017-02-27] MEDS: NOREPINEPHRINE INJ 4 MG in SODIUM CHLOR 0.9% 250 ML INJ 246 ML IV PRN ×2 (19:00→22:55)
--- NOTE | 2017-02-27 19:07 | RADRPT ---
EXAM DATE/TIME: 02/27/2017 18:12 [facility] COMPARISON: CT THORAX W/O CONTRAST, February 10, 2017, 23:56. INDICATIONS : Shorthness of breath with spesis. RADIATION DOSE: 19.84 CTDIvol (mGy) ; Combined studies - Thorax/Abdomen/Pelvis MEDICAL HISTORY : Hypertension. SURGICAL HISTORY : None. ENCOUNTER: Initial ACUITY: 1 day PAIN SCALE: 0/10 LOCATION: Bilateral chest TECHNIQUE: Volumetric scanning of the chest was performed. Using automated exposure control and adjustment of t he mA and/or kV according to patient size, radiation dose was kept as low as reasonably achievable to obtain optimal diagnostic quality images. DICOM format image data is available electronically for r eview and comparison. Follow-up recommendations for detected pulmonary nodules are based at a minimum on nodule size and pa tient risk factors according to Fleischner Society Guidelines. FINDINGS: LUNGS: There are bilateral pleural effusions, left greater than right with bibasilar atelectasis. Otherwise the rest of the lung allen are grossly clear. PLEURAE: Bilateral pleural effusions, left greater than right. MEDIASTINUM: The heart and great vessels demonstrate no acute abnormality. There is no mediastinal or hilar lymph adenopathy. AXILLAE: Within normal limits. No lymphadenopathy. MUSCULOSKELETAL: Within normal limits for patient age. Bony degenerative changes. CONCLUSION: 1. Bilateral pleural effusions with bibasilar atelectasis, left greater than right. Tom Sanchez MD on February 27, 2017 at 19:03 Board Certified Radiologist. This report was verified electronically.
[2017-02-27] MEDS ORDERED: SODIUM BICARBONATE 8.4% INJ 50 MEQ/50 ML SYR ONE (19:12)
[2017-02-27] MEDS ORDERED: SODIUM BICARBONATE 8.4% INJ 50 MEQ/50 ML SYR IV STA (19:20)
[2017-02-27] MEDS: ATORVASTATIN 10 MG TAB PO SCH (21:00)
[2017-02-27 21:16] LABS: HEMATOCRIT 25.4 % (39.0-51.0); MEAN CELL VOLUME 86.7 FL (80.0-100.0); MEAN CORPUSCULAR HEMOGLOBIN 28.9 PG (27.0-34.0); MEAN CORPUSCULAR HGB CONC 33.3 % (32.0-36.0); PLATELET COUNT 157 TH/MM3 (150-450); RED BLOOD COUNT 2.93 MIL/MM3 (4.50-5.90); RED CELL DISTRIBUTION WIDTH 14.8 % (11.6-17.2); REVIEW FLAG FINAL; WHITE BLOOD COUNT 26.9 TH/MM3 (4.0-11.0)
[2017-02-27 21:24] LABS: APTT (PATIENT) 34.3 SEC (24.3-30.1); INTERNATIONAL NORMALIZED RATIO 1.3 RATIO; PROTHROMBIN TIME - PATIENT 14.6 SEC (9.8-11.6)
[2017-02-27 21:33] LABS: BICARBONATE 17.5 MEQ/L (21.0-32.0); POTASSIUM 4.4 MEQ/L (3.5-5.1)
[2017-02-27 21:51] LABS: BLOOD GAS CARBOXYHEMOGLOBIN 1.6 % (0-4); BLOOD GAS HCO3 18 mmol/L (22-26); BLOOD GAS METHEMOGLOBIN 1.2 % (0-2); BLOOD GAS O2 HGB SATURATION 93 % (90-100); BLOOD GAS PCO2 22 mmHg (38-42); BLOOD GAS PO2 73 mmHg (61-120); BLOOD GAS TOTAL HGB 8.3 G/DL (12.0-16.0); TEMP CORR TO 98.6
[2017-02-27 21:52] LABS: CRITICAL VALUE YES; DRAW SITE RT BRACHIAL; LITER FLOW 2 L/M; NUMBER OF ARTERIAL PUNCTURES 2; OXYGEN DEVICE NASAL CANNULA; STAT YES
[2017-02-27 22:00] LABS: CALCIUM-PROTEIN CORRECTED 8.9 MG/DL (8.5-10.1)
[2017-02-27] MEDS ORDERED: CALCIUM CHLORIDE INJ 2 GM in SODIUM CHLORIDE 0.9% INJ 100 ML IV ONE (22:00)
[2017-02-27] MEDS ORDERED: MAGNESIUM SULFATE 1 GM PREMIX 200 ML ONE (23:22)
[2017-02-27] MEDS ORDERED: MAGNESIUM SULFATE INJ 2 GM in SODIUM CHLORIDE 0.9% INJ 96 ML IV ONE (23:45)
[2017-02-27] MEDS ORDERED: CALCIUM CHLORIDE 10% SOLN 1 GRAM/10 ML SYR IV ONE (23:45)
[2017-02-28] VITALS (43 sets, daily range): BP systolic 77–201; BP diastolic 48–94; PULSE 74–128; RESP 16–30; TEMP 96.4–98.9; O2SAT 10–100
[2017-02-28 00:36] LABS: AUTOMATED NEUTROPHIL # 13.3 TH/MM3 (1.8-7.7); BASOPHIL % 0.1 % (0.0-2.0); LYMPH % 8.2 % (9.0-44.0); LYMPHOCYTE # 1.3 TH/MM3 (1.0-4.8); MEAN CELL VOLUME 86.6 FL (80.0-100.0); MEAN CORPUSCULAR HEMOGLOBIN 29.2 PG (27.0-34.0); MEAN CORPUSCULAR HGB CONC 33.7 % (32.0-36.0); NEUT % 85.7 % (16.0-70.0); PLATELET COUNT 93 TH/MM3 (150-450); RED BLOOD COUNT 2.24 MIL/MM3 (4.50-5.90); RED CELL DISTRIBUTION WIDTH 14.6 % (11.6-17.2); WHITE BLOOD COUNT 15.5 TH/MM3 (4.0-11.0)
[2017-02-28 00:37] LABS: HEMO FLAGS AUTO DIFF
[2017-02-28 00:42] LABS: HEMATOCRIT 19.4 % (39.0-51.0)
[2017-02-28 00:50] LABS: BLOOD GAS BASE EXCESS -1.9 mmol/L (-2-2); BLOOD GAS CARBOXYHEMOGLOBIN 1.7 % (0-4); BLOOD GAS HCO3 21 mmol/L (22-26); BLOOD GAS METHEMOGLOBIN 1.1 % (0-2); BLOOD GAS O2 HGB SATURATION 95 % (90-100); BLOOD GAS OXYGEN CONTENT 9.1 Vol % (12.0-20.0); BLOOD GAS PCO2 30 mmHg (38-42); BLOOD GAS PO2 80 mmHg (61-120); BLOOD GAS TOTAL HGB 6.8 G/DL (12.0-16.0); CRITICAL VALUE YES; DRAW SITE ART LINE; LITER FLOW 2 L/M; OXYGEN DEVICE NASAL CANNULA; STAT NO; TEMP CORR TO 98.6
--- NOTE | 2017-02-28 00:52 | HHI.PR ---
Subjective Remarks I provided this service on 02/27 I received bedside hand-off from my partner, Dr. Aguiar for this patient who acutely became hemodynamically unstable requiring vasopressors with a sudden drop in hct. He received 3 units prbc during dayshift for this and stat CT abd/ pelvis demonstrated large right psoas compartment hematoma. The patient remained hemodynamically unstable. I spoke with the on-call interventional radiologist and at his recommendation, there is no endovascular intervention amenable to this hematoma and it is most likely venous bleed. His anticoagulation was held and he was empirically given protamine 50mg to help in reversal of his LWMH. I continued massively transfusing the patient. repeat labs demonstrated a lactate of 6.9, base deficit of 18, hgb which did not respond appropriately to his ongoing transfusions, and a rising INR. I continued a balanced resucitation with prbc, ffp, cryo, platelets. Patient is essentially anuric at this point as well with rising Cr. I trended CVP during this time as well and it remained 0 to 1 for most of the resuscitation. This is also a patient with a known EF 20-25%, so we were careful to monitor CVP and oxygen requirement to avoid over-volume resuscitation. I remained at bedside for this massive transfusion event. On my exam, patient still in severe distress, very pale, cold and poorly perfused. cvp 0. on levo at 12 mcg/min. thready distal pulses. gross anasarca. Active problems: Psoas compartment hematoma Hemorrhagic Shock Systolic Congestive Heart Failure/Cardiomyopathy Lactic Acidosis Metabolic Acidosis Coagulopathy secondary to massive blood loss Acute Kidney Injury Plan: -- continue balanced massive transfusion until CVP stable and > 10, off vasopressors. -- serial labs, trend lactates, coags, cbc, fibrinogen, abg -- may need to pursue forced diuresis if he shows signs of pulmonary edema or cardiac failure -- 2gm cacl -- close monitoring of uop -- maintain normothermia Critical care time: 137 minutes, exclusive of separately billable procedures. This note represents time I spent personally at the bedside directing care of this critically ill patient. I provided 100% of this documented time on 2016. Objective Vital Signs Date Time Temp Pulse Resp B/P (MAP) Pulse Ox O2 Delivery O2 Flow Rate FiO2 02/28/17 00:05 98.8 74 22 110/63 100 02/27/17 23:50 89.2 79 22 121/73 100 02/27/17 23:22 98.2 93 21 145/79 100 02/27/17 23:07 98.2 89 20 151/79 98 02/27/17 22:55 84 100/62 02/27/17 21:10 94 94/64 02/27/17 20:40 96 108/72 02/27/17 20:22 98.0 94 29 132/73 100 02/27/17 20:16 98.0 95 27 132/73 100 02/27/17 20:10 96 123/75 02/27/17 20:02 98.0 97 23 109/65 100 02/27/17 20:01 98.0 99 23 109/65 100 02/27/17 20:00 100 02/27/17 20:00 98.0 99 25 98/64 100 02/27/17 19:45 96 123/75 02/27/17 19:35 97.0 95 25 98/65 100 02/27/17 19:30 96 109/65 02/27/17 19:29 96.4 95 25 85/51 100 02/27/17 19:00 96 89/58 02/27/17 19:00 100 Nasal Cannula 2.00 02/27/17 16:00 96.8 86 24 78/55 (63) 100 02/27/17 16:00 86 02/27/17 16:00 86 78/55 02/27/17 15:45 90 76/51 02/27/17 15:30 92 82/55 02/27/17 15:15 91 80/54 02/27/17 15:00 91 79/54 02/27/17 14:52 92 83/55 02/27/17 14:45 94 64/49 02/27/17 14:00 94 02/27/17 12:00 88 02/27/17 12:00 88 70/54 02/27/17 12:00 97.3 88 15 70/54 (59) 100 02/27/17 11:48 100 Nasal Cannula 2.00 02/27/17 11:45 95 71/51 02/27/17 11:30 92 77/50 02/27/17 11:15 94 89/57 02/27/17 11:00 90 81/53 02/27/17 10:45 95 75/50 02/27/17 10:30 94 88/51 02/27/17 10:00 94 02/27/17 08:31 97.4 91 19 103/66 99 02/27/17 08:06 98.1 93 18 108/64 100 02/27/17 08:00 98.1 86 17 108/64 (79) 100 02/27/17 08:00 86 02/27/17 07:00 100 Nasal Cannula 2.00 02/27/17 06:49 90 75/51 02/27/17 06:00 90 02/27/17 04:35 97.7 93 18 90/55 100 02/27/17 04:20 97.7 89 11 93/58 100 02/27/17 04:00 97.7 93 18 77/52 (60) 100 02/27/17 04:00 93 02/27/17 02:35 97.7 89 15 84/50 100 02/27/17 02:35 97.6 87 21 81/55 100 02/27/17 02:00 82 02/27/17 02:00 82 02/27/17 01:27 79 21 70/49 100 02/27/17 01:18 97.7 17 70/49 100 I/O 02/27/17 02/27/17 02/27/17 02/28/17 02/28/17 02/28/17 07:00 15:00 23:00 07:00 15:00 23:00 Intake Total 3486 ml 2861 ml 3483 ml 2367 ml Output Total 1400 ml 0 ml Balance 2086 ml 2861 ml 3483 ml 2367 ml Intake Oral 480 ml IV Total 1706 ml 2211 ml 2053 ml 170 ml Packed Cells 800 ml 400 ml 800 ml 800 ml FFP 545 ml 932 ml Platelets 240 ml Cryoprecipitate 225 ml Blood Product IV Normal Saline Flush 500 ml 250 ml 85 ml Output Urine Total 1325 ml Stool Total 75 ml Drainage Total 0 ml 0 ml Bladder Scan Volume Amount 125 ml # Bowel Movements 1 Result Diagram: 02/27/17205402/27/172054 Anthony Rivas MD Feb 28, 2017 00:52
[2017-02-28 00:53] LABS: APTT (PATIENT) 29.8 SEC (24.3-30.1); INTERNATIONAL NORMALIZED RATIO 1.1 RATIO; PROTHROMBIN TIME - PATIENT 12.1 SEC (9.8-11.6)
[2017-02-28] MEDS ORDERED: BUMETANIDE INJ 1 MG/4 ML VIAL IV PUSH ONE (01:00)
[2017-02-28 01:08] LABS: BANDS 5 % (0-6); MYELOCYTES 3 % (0-0); NEUTROPHIL # MANUAL DIFF 13.5 TH/MM3 (1.8-7.7); PLATELET ESTIMATE SMEAR LOW (NORMAL); PLATELET MORPHOLOGY NORMAL (NORMAL); POLYS (SEG NEUTROPHILS) 77 % (16-70); PROMYELOCYTES 2 % (0-0); SCAN/DIFF FINAL DIFF MANUAL; WBC DIFF SAMPLE 100
[2017-02-28] MEDS ORDERED: CALCIUM CHLORIDE INJ 2 GM in SODIUM CHLORIDE 0.9% INJ 100 ML IV STA (01:30)
[2017-02-28] MEDS ORDERED: CALCIUM CHLORIDE 10% SOLN 1 GRAM/10 ML SYR IV STA (01:34)
[2017-02-28] MEDS: hydrALAZINE HCL 20 MG/ML VIAL IV PUSH PRN (02:04)
[2017-02-28 02:52] LABS: BLOOD GAS BASE EXCESS -1.9 mmol/L (-2-2); BLOOD GAS CARBOXYHEMOGLOBIN 2.3 % (0-4); BLOOD GAS HCO3 21 mmol/L (22-26); BLOOD GAS METHEMOGLOBIN 1.1 % (0-2); BLOOD GAS O2 HGB SATURATION 94 % (90-100); BLOOD GAS OXYGEN CONTENT 12.3 Vol % (12.0-20.0); BLOOD GAS PCO2 28 mmHg (38-42); BLOOD GAS PO2 77 mmHg (61-120); BLOOD GAS TOTAL HGB 9.2 G/DL (12.0-16.0); CRITICAL VALUE NO; DRAW SITE ART LINE; LITER FLOW 2 L/M; OXYGEN DEVICE NASAL CANNULA; STAT YES; TEMP CORR TO 98.6
[2017-02-28] MEDS ORDERED: CALCIUM CHLORIDE INJ 2 GM in SODIUM CHLORIDE 0.9% INJ 100 ML IV ONE (04:15)
[2017-02-28] MEDS ORDERED: SODIUM CHLOR 0.9% 250 ML INJ 250 ML IV ONE (04:15)
--- NOTE | 2017-02-28 04:46 | PD.PROCEDR ---
Procedure Note Procedure Procedure: Arterial Line Placement Left radial arterial line Diagnosis: Hemorrhagic shock Indications: For beat to beat hemodynamic monitoring and serial arterial blood gas sampling Consent: Verbal consent was obtained from the patient Description of the Procedure: The left wrist was prepped and draped sterilely. 1% lidocaine was used for local anesthesia. The pulse was located and a needle was advanced into the artery. A 20 gauge, 12 cm catheter was advanced into the artery using a modified Seldinger technique. The catheter was sutured to the skin and a sterile dressing was applied. The catheter was connected to a pressure transducer and an arterial waveform was noted. There were no immediate complications noted. There was minimal EBL. I personally performed the procedure. Anthony Rivas MD Feb 28, 2017 04:46
[2017-02-28] MEDS ORDERED: EPINEPHrine HCL (1:10,000) 1 MG/10 ML SYRINGE IV ONE (05:00)
[2017-02-28] MEDS ORDERED: DOPamine INJ PREMIX 500 ML IV ONE (05:00)
[2017-02-28] MEDS ORDERED: EPINEPHrine HCL (1:10,000) 1 MG/10 ML SYRINGE ONE (05:08)
[2017-02-28] MEDS ORDERED: MIDAZOLAM HCL 5 MG/ML VIAL (1 ML) ONE ×4 (05:08→07:07)
[2017-02-28] MEDS ORDERED: ROCURONIUM INJ 50 MG/5 ML VIAL ONE (05:09)
[2017-02-28] MEDS: PIPERACIL-TAZO 3.375 GM PREMIX 50 ML IV SCH ×3 (06:00→17:35)
[2017-02-28] MEDS: METOCLOPRAMIDE HCL 10 MG/2 ML VIAL IV PUSH SCH ×3 (06:00→21:31)
[2017-02-28] MEDS: HYDROCORTISONE SOD SUCCINATE 100 MG VIAL IV SCH ×3 (06:00→21:30)
[2017-02-28] MEDS: RESP: ALBUTEROL 2.5 MG/IPRATROPIUM 0.5 MG NEB (PRN) INH (06:14)
[2017-02-28] MEDS ORDERED: EPINEPHrine HCL (1:1000) 1 MG/ML VIAL ONE (06:20)
--- NOTE | 2017-02-28 06:22 | RADRPT ---
EXAM DATE/TIME: 02/28/2017 05:37 [facility] COMPARISON: CT THORAX W/O CONTRAST, February 27, 2017, 18:12. CHEST SINGLE AP, February 27, 2017, 17:33. INDICATIONS : Post intubation, chest tube placement. MEDICAL HISTORY : Sepsis. Renal calculi. Hypertension. SURGICAL HISTORY : IVC filter. ENCOUNTER: Subsequent ACUITY: 2 weeks PAIN SCORE: Non-responsive. LOCATION: Bilateral chest FINDINGS: Endotracheal tube is present with tip 4 cm above the roxanna. Left subclavian central line descends SV C. The right neck sheath is noted. Hazy opacities present over the left lower lung field likely indic ating layering effusion and some parenchymal disease. Infiltrate is seen at the right lung base. Card iac contours are grossly stable. CONCLUSION: Satisfactory support line and tube positioning. Slight worsening aeration. Angelo Castelan MD on February 28, 2017 at 6:19 Board Certified Radiologist. This report was verified electronically.
[2017-02-28] MEDS ORDERED: EPINEPHrine (1:1000) INJ 2 MG in DEXTROSE 5% IN WATER INJ 250 ML IV PRN ×2 (06:30)
[2017-02-28] MEDS ORDERED: MIDAZOLAM HCL 5 MG/5 ML VIAL IV ONE (06:30)
--- NOTE | 2017-02-28 06:53 | PD.PROCEDR ---
Procedure Note Procedure Central Line Procedure Note Right IJ 8.5 Czech Cordis introducer sheath Diagnosis: Hemorrhagic shock Indications: Need for massive transfusion Consent: Emergent Anesthesia: Versed 5 mg IV Description of the Procedure: The patient was placed in the supine, mild- Trendelenburg position. The area was prepped and draped sterilely. A 19g needle was inserted under negative pressure aspiration and dark venous blood was obtained. A guidewire was inserted easily without resistance. A small incision was made using a #11 blade. Using a modified Seldinger technique, the dilator and 8.5 Czech, 10 cm catheter were advanced over the guidewire without resistance. All ports were aspirated and flushed, and had brisk blood return. The line was secured at the skin using 2-0 silk interrupted sutures. A Biopatch and Transparent sterile dressing were applied. There was minimal EBL. Initially a right subclavian site was attempted, but the subclavian artery was stuck with a 19-gauge needle. Pressure was held and decision was made to transition to a right IJ approach with ultrasound guidance. Ultrasound Guidance: Ultrasound guidance was used to identify the right internal jugular vein. The vascular anatomy of the right anterior neck was normal. The vessel was cannulated under direct, real-time ultrasound visualization. After placement of the guidewire, confirmation of the guidewire in the lumen of the vessel was made using ultrasound visualization, before dilation of the tract. A Chest x-ray has been ordered. I personally performed the procedure. Anthony Rivas MD Feb 28, 2017 06:53
[2017-02-28] MEDS ORDERED: IODIXANOL 320 MG/ML 10 ML VIAL (for Rad CT) IVCONTRAST ONE (06:54)
--- NOTE | 2017-02-28 07:00 | PD.PROCEDR ---
Procedure Note Procedure Tube Thoracostomy Procedure Note Emergent right tube thoracostomy Diagnosis: Hemorrhagic shock Indications: I placed emergent right-sided introducer sheath for the rapid transfusion of blood products for patient and active hemorrhagic shock. The proximally 5 minutes after placement of central venous catheter, the patient had acute increase in peak airway pressures and acute hemodynamic collapse with what appear to be absent breath sounds on the right. Empirically, ruling out life-threatening tension pneumothorax, right-sided chest tube was placed Consent: Emergent Anesthesia: None Description of the Procedure: The patient was placed in the supine position. The arm was abducted above the head and secured. The right lateral chest was prepped and draped sterilely to include the axilla and nipple. The 5th intercostal space was identified. A small incision was made using a #11 blade. At the mid-axillary line, blunt dissection was performed until the rib was palpated. A 28 Latvian chest tube on a trocar was bluntly inserted superior to the rib, and the chest tube was advanced easily without resistance over the trocar. The chest tube was connected to a Pleur-o-vac and connected to [id number] suction. The catheter was sutured to the skin using a 0 silk sandal suture and an occlusive dressing was applied. There were no immediate complications noted. There was minimal EBL. Patient had evidence of improved hemodynamic's post procedure. A Chest x-ray has been ordered. I personally performed the procedure. Anthony Rivas MD Feb 28, 2017 07:00
--- NOTE | 2017-02-28 07:08 | HHI.PR ---
Subjective Remarks I provided this service on 02/28 I continue to remain at bedside during the morning of 02/28. Initially around 1 AM, the patient's blood pressure improved with rapid resuscitation, and his CVP marline to approximately 11. At this point, he began to be quite dyspneic. Bumex 4 mg IV 1 was given with only 150 cc of urine made throughout the course of the next 6 hours. Approximately an hour after this, the patient CVP acutely began to fall from 11 down to 0. With this he became acutely hypotensive again. His hemoglobin dropped again to 6.5. Additional blood in a balanced resuscitative pattern was ordered. At this point, the patient again began to become dyspneic. I had a conversation with the patient, were we talked about what his goals were, and his overall medical goals continue to be aggressive. I explained that I would need to intubate him for ongoing resuscitation, and he agreed. I intubated the patient, please see separate procedure note for details. At this point he will continue be worsening with unstable with very low CVP. I placed Cordis introducer sheath to allow for more rapid ministration blood products. Approximately 5 minutes after placing this line, the patient had acute onset of elevated peak air pressures and hemodynamic collapse, with decreased breath sounds on the right. I empirically placed emergent right-sided chest tube which did improve his peak airway pressures, although he remained hypotensive and unstable. I discussed the case with Dr. Aguiar, and together we agree that the only life-saving measure left to us was to repeat the CT abd/pelvis with IV contrast in an attempt to find the source of a more active arterial bleed. He assumed management of the patient to CT scan and ongoing. On my exam, patient is now intubated, sedated, in extremis. On levophed at 18 mcg/m with intermittent epinephrine 100 g boluses. Large protuberant abdomen. Still cold and mottled. Active problems: Psoas compartment hematoma Hemorrhagic Shock Systolic Congestive Heart Failure/Cardiomyopathy Lactic Acidosis Metabolic Acidosis Coagulopathy secondary to massive blood loss Acute Kidney Injury Acute hypoxic respiratory Failure Pulmonary Edema secondary to Acute exacerbation of Systolic CHF Plan: -- STAT CT abd/pelvis -- continue levophed, epi for goal map > 65 -- continue transfusion for goal hgb > 7 in a balanced fashion with ffp, plt, cryo. -- continue serial labs. -- continue balanced massive transfusion until CVP stable and > 10, off vasopressors. -- serial labs, trend lactates, coags, cbc, fibrinogen, abg -- close monitoring of uop -- maintain normothermia -- may need to pursue renal replacement therapy Critical care time: 150 minutes, exclusive of separately billable procedures. This note represents time I spent personally at the bedside directing care of this critically ill patient. I provided 100% of this documented time on 2016. Objective Vital Signs Date Time Temp Pulse Resp B/P (MAP) Pulse Ox O2 Delivery O2 Flow Rate FiO2 02/28/17 05:13 98.9 115 30 134/59 99 02/28/17 04:43 98.6 88 22 96/48 98 02/28/17 02:45 98.6 95 19 161/70 98 02/28/17 02:00 85 02/28/17 01:45 98.6 84 22 201/90 98 02/28/17 01:34 98.6 84 24 198/92 99 02/28/17 01:19 98.8 24 178/80 98 02/28/17 00:05 98.8 74 22 110/63 100 02/28/17 00:00 90 02/28/17 00:00 98.6 90 19 140/62 (88) 98 02/27/17 23:50 89.2 79 22 121/73 100 02/27/17 23:22 98.2 93 21 145/79 100 02/27/17 23:07 98.2 89 20 151/79 98 02/27/17 22:55 84 100/62 02/27/17 22:00 96 02/27/17 21:33 100 Nasal Cannula 2.00 02/27/17 21:10 94 94/64 02/27/17 20:40 96 108/72 02/27/17 20:22 98.0 94 29 132/73 100 02/27/17 20:16 98.0 95 27 132/73 100 02/27/17 20:10 96 123/75 02/27/17 20:02 98.0 97 23 109/65 100 02/27/17 20:01 98.0 99 23 109/65 100 02/27/17 20:00 100 02/27/17 20:00 98.6 96 23 109/65 (80) 100 02/27/17 20:00 98.0 99 25 98/64 100 02/27/17 19:45 96 123/75 02/27/17 19:35 97.0 95 25 98/65 100 02/27/17 19:30 96 109/65 02/27/17 19:29 96.4 95 25 85/51 100 02/27/17 19:00 96 89/58 02/27/17 19:00 100 Nasal Cannula 2.00 02/27/17 16:00 96.8 86 24 78/55 (63) 100 02/27/17 16:00 86 02/27/17 16:00 86 78/55 02/27/17 15:45 90 76/51 02/27/17 15:30 92 82/55 02/27/17 15:15 91 80/54 02/27/17 15:00 91 79/54 02/27/17 14:52 92 83/55 02/27/17 14:45 94 64/49 02/27/17 14:00 94 02/27/17 12:00 88 02/27/17 12:00 88 70/54 02/27/17 12:00 97.3 88 15 70/54 (59) 100 02/27/17 11:48 100 Nasal Cannula 2.00 02/27/17 11:45 95 71/51 02/27/17 11:30 92 77/50 02/27/17 11:15 94 89/57 02/27/17 11:00 90 81/53 02/27/17 10:45 95 75/50 02/27/17 10:30 94 88/51 02/27/17 10:00 94 02/27/17 08:31 97.4 91 19 103/66 99 02/27/17 08:06 98.1 93 18 108/64 100 02/27/17 08:00 98.1 86 17 108/64 (79) 100 02/27/17 08:00 86 I/O 02/27/17 02/27/17 02/27/17 02/28/17 02/28/17 02/28/17 06:59 14:59 22:59 06:59 14:59 22:59 Intake Total 3486 ml 2861 ml 3483 ml 6548 ml Output Total 1400 ml 0 ml Balance 2086 ml 2861 ml 3483 ml 6548 ml Intake Oral 480 ml IV Total 1706 ml 2211 ml 2053 ml 285 ml Packed Cells 800 ml 400 ml 800 ml 3200 ml FFP 545 ml 2523 ml Platelets 240 ml Cryoprecipitate 225 ml Blood Product IV Normal Saline Flush 500 ml 250 ml 85 ml 75 ml Output Urine Total 1325 ml Stool Total 75 ml Drainage Total 0 ml 0 ml Bladder Scan Volume Amount 1000 ml 125 ml # Bowel Movements 1 Result Diagram: 02/28/17 0015 02/27/172054 Anthony Rivas MD Feb 28, 2017 07:08
--- NOTE | 2017-02-28 07:10 | PD.PROCEDR ---
Procedure Note Procedure Endotracheal Intubation Diagnosis: Hemorrhagic shock with ischemic cardiomyopathy, EF 10% Indications: Acute hypoxic respiratory failure Consent: Emergent Anesthesia: Versed 10 mg IV, Rocuronium 100 mg IV Description of the Procedure: The patient was positioned in the sniffing position. Pre-oxygenation was performed using a nonrebreather mask. Anesthesia was induced via rapid sequence. A Leone #2 was used for laryngoscopy and a Grade II view was obtained. A 8.5 cuffed endotracheal tube was inserted atraumatically through the vocal cords. Confirmation of correct endotracheal tube placement was made by equal and bilateral breath sounds and colorimetric CO2 detection. The endotracheal tube was secured at 23 cm at the teeth. Patient had evidence of laryngeal and pharyngeal edema likely secondary to massive transfusion. There were no immediate complications noted. Patient was hemodynamically unstable throughout the procedure secondary to his ongoing hemorrhagic shock. A chest x-ray has been ordered. I personally performed the procedure. Anthony Rivas MD Feb 28, 2017 07:10
[2017-02-28 07:20] LABS: BLOOD GAS BASE EXCESS -5.3 mmol/L (-2-2); BLOOD GAS CARBOXYHEMOGLOBIN 1.5 % (0-4); BLOOD GAS HCO3 20 mmol/L (22-26); BLOOD GAS METHEMOGLOBIN 1.2 % (0-2); BLOOD GAS O2 HGB SATURATION 97 % (90-100); BLOOD GAS OXYGEN CONTENT 15.4 Vol % (12.0-20.0); BLOOD GAS PCO2 45 mmHg (38-42); BLOOD GAS PO2 369 mmHg (61-120); BLOOD GAS TOTAL HGB 10.6 G/DL (12.0-16.0); TEMP CORR TO 98.6
[2017-02-28 07:21] LABS: CRITICAL VALUE YES; DRAW SITE ART LINE; FIO2 100 %; OXYGEN DEVICE VENTILATOR; STAT NO; VENT SETTINGS PRVC/AC
[2017-02-28] MEDS ORDERED: MIDAZOLAM HCL 2 MG/2 ML VIAL IV PUSH ONE (07:30)
--- NOTE | 2017-02-28 07:31 | RADRPT ---
EXAM DATE/TIME: 02/28/2017 06:51 [facility] COMPARISON: CT ABDOMEN & PELVIS W/O CONTRAST, February 27, 2017, 18:12. INDICATIONS : Retroperitoneal bleed. IV CONTRAST: 50 cc Visipaque (iodixanol) IV ORAL CONTRAST: No oral contrast ingested. RADIATION DOSE: 23.00 CTDIvol (mGy) MEDICAL HISTORY : Hypertension. Renal calculi. Diabetes mellitus type 2. SURGICAL HISTORY : None. ENCOUNTER: Initial ACUITY: 1 day PAIN SCALE: Non-responsive LOCATION: Bilateral abdomen TECHNIQUE: Volumetric scanning was performed using a multi-row detector CT scanner. The data was post processed with a variety of visualization algorithms including full volume maximum intensity projection, multi -planar sliding thin slab reformation, curved planar reformation, and surface rendering techniques. Using automated exposure control and adjustment of the mA and/or kV according to patient size, radiat ion dose was kept as low as reasonably achievable to obtain optimal diagnostic quality images. DICOM format image data is available electronically for review and comparison. FINDINGS: VASCULAR FINDINGS: There is mild atherosclerotic disease. No aneurysm is present. Celiac trunk and spur mesenteric arter y demonstrate no significant abnormality. There are 2 right renal arteries. JOSE appears patent. IVC f ilter is present in the infrarenal aspect of the IVC. OTHER: There is a moderate size left and small right pleural effusion with associated compressive atelectasi s. Right chest tube is present and there is trace pleural air. Coronary artery calcification is prese nt. There is a small volume of free fluid within the abdomen and pelvis, stable from the prior study. In the right retroperitoneum of the abdomen and pelvis there is a retroperitoneal hematoma with hete rogeneous density it measures approximately 17.0 x 12.6 x 23.3 cm compared to 16.7 x 12.1 x 17.8 cm p reviously. The inferior aspect of the retroperitoneal hematoma has clearly increased in size. The inf erior aspect in the right iliac fossa region measures 14.2 x 9.5 cm compared to 9.8 x 6.5 [address] In the right psoas muscle there is a curvilinear arterial enhancement and in the right iliac yani a extending into the hematoma is additional serpiginous arterially enhancing structure. The hematoma causes anterior displacement of the right kidney. The liver, adrenal glands, spleen, and pancreas dem onstrate no acute finding. Left kidney remains severely atrophic. There is a nonobstructive bowel gas pattern and no free air is seen. Urinary bladder is decompressed with a Sloan catheter. There is carol sarca. CONCLUSION: 1. The right retroperitoneal hematoma has increased in size, as above. There are 2 serpiginous arteri ally enhancing structures visualized, one in the right psoas muscle and another extending into the he matoma at the right iliac fossa. These could represent sites of continued active bleeding. 2. Stable moderate size left and small right pleural effusion with associated compressive atelectasis . 3. Stable small volume of free fluid in the abdomen and pelvis. There is also anasarca. The findings concerning the retroperitoneal hematoma were discussed with Dr. Aguiar via telephone at ap proximately 7: 10 AM on 02/28/2017. Angelo Allen MD on February 28, 2017 at 7:21 Board Certified Radiologist. This report was verified electronically.
[2017-02-28] MEDS: INSULIN NovoLIN REGULAR SUPPLEMENTAL SCALE SQ SCH ×4 (08:00→20:00)
[2017-02-28] MEDS: CHLORHEXIDINE 0.12% (ORAL KIT) 15 ML CUP MT SCH ×2 (08:00→21:30)
--- NOTE | 2017-02-28 08:02 | HHI.CCPN ---
Subjective Remarks/Hospital Course Date of admission: 01/22 Date of critical care medicine consult 02/10 due to acute hypoxemic respiratory failure requiring emergent intubation 62-year-old male with a past medical history of hypertension, hyperlipidemia, diabetes mellitus, gout, uric acid kidney stones, kidney disease of unknown stage who originally presented to [facility] emergency department on 01/22 after a fall in which he sustained a right distal ulna fracture. He had been experiencing a gradual primarily lower extremity weakness as well as upper extremity weakness that was progressive. Neurology consult was obtained. MRI revealed no acute stroke. He had multifocal white matter changes. Tiny lacunar infarcts of the brainstem. Lumbar MRI report states L4-L5 disc protrusion with cetnral canal stenosis. Dr. Blackwell evaluated and states no cord compression on MRI C/T spine and recommended nonoperative management. Symptoms were felt to be consistent with transverse myelitis and he underwent Solumedrol 250 mg IV q6 hours 01/27-02/02. He also was found to have occlusive thrombus in the bilateral posterior tibial veins. Heparin was being avoided because he had traumatic lumbar puncture on 01/26 and 02/01. IVC filter was placed 01/25. He was undergoing physical therapy, reportedly making some improvements with plan to eventually discharged home with his son (max assist standing, and bed to chair per PT note). Apparently he had some vomiting the evening of 02/09 and additional vomiting on 02/10. He had a fever 102.8 on 02/09. Last recorded bowel movement was 02/03. Tonight he had acute onset of severe hypoxemia and respiratory distress. [facility] called and he was brought emergently to [facility] where his sats were 64% on 100% nonrebreather with mean arterial pressure 44. He was emergently intubated, CVL and art line placed. He is in septic shock. SUBJ: 02/11: Patient remains intubated sedated, critically ill. FiO2 reduced to 80% after increasing PEEP to 12. In severe septic shock Levophed at 16 mcg/m, vasopressin at 0.04 international units. D/W vascular surgery Dr. Enciso. He performed bedside Left upper extremity incision and debridement and excision of septic cephalic vein. 02/12: Remains intubated sedated profoundly septic, in shock on vasopressin and 7 mcg/min Levophed. FiO2 has improved to 45%, WBC count remains elevated with 20 ,000 white count significant left shift. Slight improvement in creatinine 2.9 urine output 750 ml 24 hours. 2-D echo shows LV ejection fraction 20-25%, no vegetation reported. Blood cultures 4 staph aureus. Wound culture pending 02/13: Remains critically ill but stable to improving. WBC count is down to 16, creatinine improving to 2.36. Off all pressors. Urine output also improving. 1.5L in 24 hours 02/14: Extubated 02/13. Tolerating well. WBC now down to 12.8. Creat improving 2.3 to 2. UO 3.4L. remains off all pressors. Was started on Precedex yesterday night for agitation, currently on 0.5 g per KG per hour. Chest x-ray shows left more than right air space disease 02/20/17 Re consult: 62-year-old male who was originally admitted for lower extremity weakness and found to have what was thought to be possible transverse myelitis. His hospital course his included a healthcare associated pneumonia, septic thrombophlebitis, DVT. He was most recently in the hospital floor where he had significant nausea and vomiting and diarrhea. His C. difficile test was recently negative. However, he has experienced worsening acute on chronic renal failure, hypotension, tachycardia, and severe hypoxemia. He did have a bout of vomiting earlier today, and his hospitalist attending suspects that he may have aspirated. He arrives by rapid response to the ICU with a nonrebreather in place in severe respiratory distress with SPO2 of 85%. I emergently intubate the patient, see separate procedure note for details. At this point the patient was hypotensive and tachycardic. He does have a history of an EF of 20%, however clinically he appears in florid septic shock. I placed central line and arterial line started vasopressors and gentle IV fluid resuscitation with 1 L of LR. Patient today was empirically broadened to vancomycin and Zosyn from his oxacillin which was initially treating MSSA bacteremia. He is recultured. Critical-care medicine is consulted to evaluate and manage his worsening multiorgan system failure and decompensated septic shock 02/21: Patient remains intubated sedated. Becomes anxious tachypnea on sedation lightening. Chest x-ray shows mild left lower lobe infiltrate. WBC count is slightly improved today from 23.2 t0 21. C Diff negative. UO adequate, creat slightly worsening. 1.57 today 02/22: Remains intubated sedated tolerated CPAP yesterday, plan is for EGD/ Colonscopy. WBC count back to normal. UO adequate. Creat stable 02/23: Tolerating CPAP trials following commands. Will do a spontaneous breathing trials. Status post EGD colonoscopy yesterday -Gastritis, esophagitis. Diverticulosis and multiple polyps. Urine output adequate but creatinine increasing to 1.7 with patient requiring multiple straight catheterization. We'll reinsert Sloan. 02/24: Breathing comfortably 24 hours after extubation. Protects airway well. 02/25: Excoriate bottom, will place rectal FMS. Start pureed diet. 02/26: Afebrile. Complaining of nausea and vomiting this afternoon. Increased stool output. Continue potassium replacement today. 02/27: 10 PM overnight, acutely hypotensive. Received 3 units PRBCs. Antibiotic coverage broadened to piperacillin/tazobactam, cortisol and 1 dose of vancomycin. Oxacillin drip currently on hold. Symptomatically, patient continues to vague abdominal pain/nausea vomiting which is unchanged for the past several days. Lipase elevated yesterday. Lactic acid normal. Troponin normal. Urinary retention after removal of Sloan. Straight catheter 1300. Cc Subjective 02/28: New diagnosis large retroperitoneal hematoma. Received 10 PRBC, 14 FFP, 2 platelets, 1 cryo-, 6 g calcium chloride, 2 is magnesium sulfate and 4 mg Bumex. CTA abdomen revealed possible arterial bleeds iliac, lumbar. Patient is currently on norepinephrine and epinephrine drips and possible need right nephrostomy tube placement due to large hematoma compressing ureter. Intra-abdominal bladder pressures are currently 13 Objective Vital Signs Date Time Temp Pulse Resp B/P (MAP) Pulse Ox O2 Delivery O2 Flow Rate FiO2 02/28/17 06:45 100 100 02/28/17 05:13 98.9 115 30 134/59 02/27/17 21:33 Nasal Cannula 2.00 Intake and Output 02/28/17 02/28/17 02/28/17 07:59 15:59 23:59 Intake Total 4901 ml Balance 4901 ml Result Diagram: 02/28/171402/27/172054 Other Results Microbiology Date/Time Source Procedure Growth Status 02/27/17 03:48 Blood Peripheral Aerobic Blood Culture Pending Received 02/27/17 03:48 Blood Peripheral Anaerobic Blood Culture Pending Received 02/01/17 09:55 Cerebral Spinal Fluid Lumbar Puncture Fungal Smear - Final NO FUNGAL ELEMENTS SEEN. Resulted 02/01/17 09:55 Cerebral Spinal Fluid Lumbar Puncture Fungal Culture - Preliminary NO GROWTH IN 3 WEEKS Resulted 02/17/17 05:55 Stool Stool Stool Occult Blood (GREGORY) - Final HEMOCCULT POSITIVE Complete 02/20/17 12:55 Sputum Endotracheal Gram Stain - Final Complete 02/20/17 12:55 Sputum Endotracheal Sputum Culture - Final HEAVY GROWTH NORMAL RESPIRATORY EARL Complete 02/27/17 08:32 Urine Catheterized Urine Urine Culture Pending Received 02/11/17 09:10 Abscess Arm Acid Fast Stain - Final NO ACID FAST BACILLI SEEN Resulted 02/11/17 09:10 Abscess Arm Mycobacterial Culture - Preliminary NO GROWTH IN 2 WEEKS Resulted Imaging Last Impressions Chest X-Ray 02/28/17 0000 Signed Impressions: Service Date/Time: Tuesday, February 28, 2017 05:37 - CONCLUSION: Satisfactory support line and tube positioning. Slight worsening aeration. Angelo aCstelan MD Chest CT 02/27/17 0000 Signed Impressions: Service Date/Time: Monday, February 27, 2017 18:12 - CONCLUSION: 1. Bilateral pleural effusions with bibasilar atelectasis, left greater than right. Tom Sanchez MD Abdomen/Pelvis CT 02/27/17 0000 Signed Impressions: Service Date/Time: Monday, February 27, 2017 18:12 - CONCLUSION: 1. There has been interval development of a very large right-sided retroperitoneal hematomas in the mid to lower right abdomen with extension into the right pelvis. There is a hematoma just posterior to the right kidney measuring 9.4 x 7.5 cm. There is a larger retroperitoneal hematoma measuring 16.7 x 12.0 cm just above the right psoas muscle in the mid to lower right abdomen. 2. There is some new free fluid around the liver and spleen. 3. There continues to be bilateral pleural effusions with bibasilar atelectasis. 4. There are nonobstructing stones in the right kidney. Tom Sanchez MD Abdomen X-Ray 02/26/17 0000 Signed Impressions: Service Date/Time: Sunday, February 26, 2017 14:52 - CONCLUSION: 1. Nonobstructive bowel gas pattern. Juan Bhakta MD Upper Extremity Ultrasound 02/10/17 0000 Signed Impressions: Service Date/Time: Friday, February 10, 2017 18:46 - CONCLUSION: Occlusive thrombus in the cephalic and basilic veins. Benjamin Person MD Lung Scan-V Nuclear Medicine 02/10/17 0000 Signed Impressions: Service Date/Time: Friday, February 10, 2017 22:17 - CONCLUSION: Low probability pulmonary embolism. Candido Patton MD Head CT 02/10/17 0000 Signed Impressions: Service Date/Time: Friday, February 10, 2017 23:51 - CONCLUSION: Negative noncontrast CT brain. Candido Patton MD Wrist X-Ray 02/06/17 0000 Signed Impressions: Service Date/Time: Monday, February 06, 2017 12:50 - CONCLUSION: Minimally displaced distal radius and ulnar fractures. Armando Dodd MD Lumbar Puncture Fluoroscopy 02/01/17 0000 Signed Impressions: Service Date/Time: January 09:35 - CONCLUSION: Uncomplicated fluoroscopically guided lumbar puncture. CSF was clear. Nabeel Peralta MD Head Magnetic Resonance Angiography 01/27/17 0000 Signed Impressions: Service Date/Time: Friday, January 27, 2017 10:33 - CONCLUSION: No intracranial vascular abnormality is identified. There is no aneurysm visualized. Angelo Allen MD IVC Filter Placement X-Ray 01/25/17 0000 Signed Impressions: Service Date/Time: January 10:29 - CONCLUSION: Uncomplicated inferior vena cava filter placement as above. Yung Fowler MD Thoracic Spine MRI 01/24/17 0000 Signed Impressions: Service Date/Time: Tuesday, January 24, 2017 22:29 - CONCLUSION: 1. Mild degenerative spondylosis most prominently at T11-L1 with slight effacement of the anterior thecal sac and left lateral recess. No significant neural foraminal stenosis. 2. No acute fracture. Juan Bhakta MD Renal Ultrasound 01/23/17 0000 Signed Impressions: Service Date/Time: Monday, January 23, 2017 08:53 - CONCLUSION: 1. Evidence of chronic parenchymal disease of both kidneys. No obstructive uropathy or other acute abnormality demonstrated. 2. Trace ascites, nonspecific. Angelo Garrido MD Lumbar Spine MRI 01/23/17 0000 Signed Impressions: Service Date/Time: Monday, January 23, 2017 17:01 - CONCLUSION: 1. At L4-5 is a broad-based disc protrusion with severe central canal and lateral recess stenosis and flattening of the exiting right L4 nerve root. 2. L5-S1 there is a disc protrusion and moderate stenosis with flattening of the exiting L5 nerve roots bilaterally. 3. At L3-4 there is a moderate to severe central stenosis and lateral recess stenosis with mild foraminal stenosis. 4. No acute fracture or spondylolisthesis. Trace Holloway MD Lower Extremity Ultrasound 01/23/17 Signed Impressions: Service Date/Time: Monday, January 23, 2017 09:53 - CONCLUSION: Bilateral focal lower extremity DVT involving the posterior tibial veins. Angeol Garrido MD Cervical Spine MRI 01/23/17 Signed Impressions: Service Date/Time: Monday, January 23, 2017 17:01 - CONCLUSION: 1. Multilevel cervical spine degenerative changes as above. 2. Mild degrees of spinal stenosis at C3/C4-C6/C7. No cord compression or cord signal abnormality. 3. Age indeterminate left paracentral/foraminal disc protrusion at C6/C7. 4. Multilevel foraminal stenosis, most severe on the left at C6/C7. Please see individual levels above. 5. No fracture or subluxation of the cervical spine. Angelo Garrido MD Brain MRI 01/23/17 Signed Impressions: Service Date/Time: Monday, January 23, 2017 17:01 - CONCLUSION: 1. No acute stroke or other acute intracranial abnormality demonstrated. 2. Moderate severity chronic white matter changes, nonspecific but most likely related to chronic small vessel disease. 3. Few scattered tiny lacunar infarcts of the brainstem. 4. Given the findings are not entirely specific, clinical evaluation for possible multiple sclerosis recommended. Angelo Garrido MD Knee X-Ray 01/22/172053 Signed Impressions: Service Date/Time: Sunday, January 22, 2017 21:17 - CONCLUSION: 1. Evidence of moderate to large joint effusion. 2. No acute fracture or malalignment. 3. Mild 3 compartment osteoarthritic change. Benjamin Person MD Hip and Pelvis X-Ray 01/22/172053 Signed Impressions: Service Date/Time: Sunday, January 22, 2017 21:10 - CONCLUSION: 1. Mild to moderate degenerative change of both hips with no acute fracture or malalignment. There is flattening and remodeling of the right humeral head. Benjamin Person MD Objective Remarks GENERAL: 62-year-old male, critically ill currently orotracheally intubated HEENT: Normocephalic. Atraumatic. Pupils equal, round, reactive, conjugate by 3 mm bilaterally. NECK: Trachea is midline. Obese. No JVD or thyromegaly right IJ Cordis and left subclavian TLC clean dry and intact CHEST: Diminished breath sounds. Right-sided chest tube -20 cm H2O. CARDIOVASCULAR: Tachycardia, RR. S1, S2 no S4. ABDOMEN: Distended. Firm to palpation. No bowel sounds are appreciated. MUSCULOSKELETAL: Pulses 2+. Trace to 1+ bilateral upper and lower extremity edema. Wound VAC in left upper extremity NEUROLOGICAL: Cranial nerves II through XII grossly intact. Withdraws to pain bilateral upper and lower extremities. Positive corneal reflux. Positive gag. Procedures IVC filter placement 01/25/2017 LP 01/26/2017 A/P Problem List: (1) Septic shock ICD Code: A41.9 - Sepsis, unspecified organism; R65.21 - Severe sepsis with septic shock Status: Acute (2) Acute respiratory failure ICD Code: J96.00 - Acute respiratory failure, unspecified whether with hypoxia or hypercapnia Status: Acute (3) Thrombophlebitis arm ICD Code: I80.8 - Phlebitis and thrombophlebitis of other sites (4) Aspiration pneumonia ICD Code: J69.0 - Pneumonitis due to inhalation of food and vomit Status: Acute (5) Atelectasis of left lung ICD Code: J98.11 - Atelectasis Status: Acute (6) Quadriparesis ICD Code: G82.50 - Quadriplegia, unspecified Status: Acute (7) DVT (deep venous thrombosis) ICD Code: I82.409 - Acute embolism and thrombosis of unspecified deep veins of unspecified lower extremity (8) Altered mental status ICD Code: R41.82 - Altered mental status, unspecified Status: Acute (9) CKD (chronic kidney disease) stage 3, GFR 30-59 ml/min ICD Code: N18.3 - Chronic kidney disease, stage 3 (moderate) Status: Chronic (10) Acute renal failure ICD Code: N17.9 - Acute kidney failure, unspecified Status: Acute (11) Diabetes mellitus ICD Code: E11.9 - Type 2 diabetes mellitus without complications Status: Chronic (12) Distal end of ulna fracture, closed ICD Code: S52.609A - Unspecified fracture of lower end of unspecified ulna, initial encounter for closed fracture Status: Acute (13) Gout ICD Code: M10.9 - Gout, unspecified Status: Chronic Assessment and Plan NEURO/PSYCH: Acute metabolic encephalopathy Quadriparesis secondary to suspected transverse myelitis Recurrent falls Patient is currently on propofol/fentanyl drips for sedation/analgesia while intubated Goal of RA SS -2 Daily sedation vacation when appropriate Suspected transverse myelitis. Received methylprednisolone 250 mg IV every 6 hours 01/27-02/02, started back on hydrocortisone 02/21/17, initially tapering to 50 mg IV every 8 hours starting received 1 dose at 2100 prior to becoming hypotensive. Currently back on 100 mg IV every 8 hours LP 01/26 and 02/01. CSF culture negative 01/26, 02/01 Oligoclonal bands negative. CSF/serum IgG index is not elevated. VDRL nonreactive. Cryptococcal antigen negative. Brain MRI 01/23 no acute stroke. Few scattered lacunar infarcts of the brainstem. Moderate chronic white matter changes. MRI cervical/thoracic spine- mild spinal stenosis C3/C4 to C6/C7. No cord compression. RPR negative Neurology has been following, Dr. Crenshaw. Repeat CT brain 02/10 - negative Continue PT/OT RESP: Acute hypoxemic respiratory failure Healthcare associated pneumonia/Aspiration Pneumonia Right-sided chest tube placed for pleural effusion. PRVC 14/550/0.9/5/50 Ventilator bundle Albuterol/ipratropium aerosols every 6 hours with albuterol aerosols every 2 hours. Dyspnea Spontaneous breathing trials daily VQ scan 02/10 low probability for PE. CT chest 02/10 - left lower lobe collapse and consolidation. CT chest 02/27 revealed right greater than left pleural effusions. Extubated 02/23. Intubated 02/28 Right-sided chest tube placement overnight regional liaison. -20 cm water. Minimal serosanguineous output. CV: Severe sepsis Systolic heart failure likely chronic with ejection fraction 20-25% Hyperlipidemia History of hypertension Mild TR Currently on norepinephrine at 10 g per minute and epinephrine drip at 10 mics grams per minute to maintain mean arterial pressure greater than or equal to 65 Holding metoprolol and amlodipine in light of current hypotension. Discontinue atorvastatin 10 mg by mouth daily for dyslipidemia. Troponin 0.[address]-T changes. Patient denying chest discomfort. 2-D echocardiogram 01/11 revealed EF 20-25%. Per to really reduce left ventricular systolic function. Mild TR. Pulmonary arterial pressures were normal around 20 GI: Large right retroperitoneal hematoma Severe protein energy malnutrition Nausea/vomiting Diarrhea Gastritis Diverticulosis Internal and external hemorrhoids Hiatal hernia Elevated lipase 02/27 CT chest/abdomen and pelvis - 9.4 x 7.5 renal and 16 x 12 cm right psoas muscle hematoma. Fluid around liver and spleen. Right-sided nephrolithiasis CTA abdomen 02/28 - possible blushing around iliac/lumbar vessels Discussed with IR. We'll attempt embolization today due to use severe acute illness. CT abdomen and pelvis 02/10 atrophic left kidney. Bilateral inguinal hernias fat- containing. Nonobstructing 12 mm right kidney stone repeat CT abd/pelvis did not show evidence of obstruction. patient clinically has been having diarrhea (c. diff negative 02/19). also with nausea/vomiting of unclear etiology. EGD/Colonoscopy-02/22/17 showed gastritis esophagitis, hiatal hernia, diverticulosis and multiple polyps in descending colon and sigmoid which were snared biopsied. Biopsy pending Check C. difficile Holding cholestyramine 4 g every 12 hours for diarrhea Dicyclomine 20 mg 3 times a day Measuring intra-abdominal pressures every 6 hours. Currently 13 FEN/RENAL: Acute kidney injury in the setting of Chronic kidney disease stage 3-4 History of uric acid kidney stones with prior stent BPH Nonfunctioning left kidney Sloan placed due to urinary retention and worsening creatinine. Monitor intake and output q1hr. Monitor electrolytes. RIOS/SPEP negative. 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 Recommended nephrostomy tube if obstruction Nephrology consult for possible hemodialysis Due to acute illness holding tamsulosin 0.4 mg by mouth daily for BPH ID: Septic shock- Abscess and Suppurative thrombophlebitis left upper extremity MSSA bacteremia Acute aspiration pneumonia/HCAP Broad-spectrum antibiotics with oxacillin 2 g IV every 4 hours till March 26 initially. This is been held in light of current change to regimen to fluconazole, piperacillin/tazobactam and vancomycin overnight due to unclear etiology of hypotension Blood cultures 2, UA no growth to date ID on board. f/u cultures form 02/20/17 blood, sputum, urine cultures-all negative to date HEME: Acute blood loss anemia DVT, bilateral posterior tibial vein, IVC filter Septic thrombophlebitis with occlusive thrombus mid cephalic and basilic vein side Received 10 PRBC, 14 FFP, 2 platelets, 1 cryo-overnight. Serial hemoglobins every 6 hours Recheck coags Ultrasound 01/23/17 - Bilateral lower extremity with occlusive posterior tibial vein DVTs. Heparin was initially started for DVT but was placed on hold due to LP with suspected traumatic tap. Currently holding full anticoagulation with enoxaparin 100 mg IV twice a day due to anemia as of 02/26 IVC filter was placed 01/25/17. Ultrasound LUE 02/10 occlusive thrombus mid cephalic vein, basilic vein.s. Transfuse 3 units PRBCs 02/27 No signs of hemolysis ENDO: Diabetes mellitus Hypoglycemia History of prior adrenal insufficiency with shock Gout EGD colonoscopy completed 02/22. gastritis and esophagitis, colon polyps Started Hydrocortisone 100 mg IV q8hr 02/21/17 (Recent high dose steroids use now hypotensive, hypoglycemic) Accu-Cheks to maintain euglycemia Novulin R every 4 hours MSK: Right distal ulna fracture. Dr. Nathan with orthopedics has evaluated and recommended nonoperative management. Right wrist splint in place. PROPH: Pantoprazole 40 mg IV twice a day for stress ulcer prophylaxis. Has IVC filter. Therapeutic enoxaparin currently on hold ACCESS: Left subclavian CVL placed 02/20. Right IJ Cortis placed 02/28. Left radial arterial line placed 02/28 Critical Care: The total critical care time was 55 minutes. Time to perform other separately billable procedures was not included in the critical care time. Sister/healthcare proxy is been notified. Recommended to see her brother today due to acuity of illness. Problem Qualifiers (1) Aspiration pneumonia: (2) DVT (deep venous thrombosis): Qualified Codes: I82.443 - Acute embolism and thrombosis of tibial vein, bilateral (3) Acute renal failure: Qualified Codes: N17.9 - Acute kidney failure, unspecified (4) Diabetes mellitus: (5) Gout: Janes Aguiar MD Feb 28, 2017 08:02
[2017-02-28 08:44] LABS: AUTOMATED NEUTROPHIL # 15.9 TH/MM3 (1.8-7.7); EOSINOPHIL % 0.1 % (0.0-4.0); LYMPH % 5.5 % (9.0-44.0); MEAN CELL VOLUME 86.9 FL (80.0-100.0); MEAN CORPUSCULAR HEMOGLOBIN 29.4 PG (27.0-34.0); MEAN CORPUSCULAR HGB CONC 33.8 % (32.0-36.0); MONO % 4.2 % (0.0-8.0); NEUT % 90.2 % (16.0-70.0); PLATELET COUNT 137 TH/MM3 (150-450); RED BLOOD COUNT 3.91 MIL/MM3 (4.50-5.90); RED CELL DISTRIBUTION WIDTH 14.7 % (11.6-17.2); WHITE BLOOD COUNT 17.7 TH/MM3 (4.0-11.0)
[2017-02-28 08:49] LABS: APTT (PATIENT) 24.9 SEC (24.3-30.1); INTERNATIONAL NORMALIZED RATIO 1.1 RATIO; PROTHROMBIN TIME - PATIENT 11.9 SEC (9.8-11.6)
[2017-02-28 08:50] LABS: HEMO FLAGS AUTO DIFF
[2017-02-28] MEDS: LACTOBACILLUS ACIDOPHILUS TAB PO SCH ×3 (09:00→15:29)
[2017-02-28] MEDS ORDERED: VANCOMYCIN INJ 1,500 MG in SODIUM CHLORID 0.9% 500 ML INJ 500 ML IV SCH (09:00)
[2017-02-28 09:07] LABS: ALKALINE PHOSPHATASE 81 U/L (45-117); ALT (GPT) 24 U/L (12-78); ANION GAP 12 MEQ/L (5-15); AST (GOT) 72 U/L (15-37); BICARBONATE 20.9 MEQ/L (21.0-32.0); BLOOD UREA NITROGEN 22 MG/DL (7-18); CHLORIDE 109 MEQ/L (98-107); GLOMERULAR FILTRATION RATE 37 ML/MIN (>89); MAGNESIUM 2.1 MG/DL (1.5-2.5); POTASSIUM 3.8 MEQ/L (3.5-5.1); SODIUM (NA) 142 MEQ/L (136-145); TOTAL BILIRUBIN ADULT 0.9 MG/DL (0.2-1.0)
[2017-02-28 09:08] LABS: AMYLASE 123 U/L (25-115)
[2017-02-28] MEDS: RESP: ALBUTEROL 2.5 MG/IPRATROPIUM 0.5 MG NEB (SCH) NEB ×3 (09:11→20:25)
[2017-02-28 09:33] LABS: BANDS 8 % (0-6); CORRECTED NUCLEATED RBC 1 /100 WBC (0-0); METAMYELOCYTES 3 % (0-1); MYELOCYTES 2 % (0-0); NEUTROPHIL # MANUAL DIFF 16.1 TH/MM3 (1.8-7.7); PLATELET ESTIMATE SMEAR LOW (NORMAL); PLATELET MORPHOLOGY NORMAL (NORMAL); POLYS (SEG NEUTROPHILS) 78 % (16-70); SCAN/DIFF FINAL DIFF MANUAL; WBC DIFF SAMPLE 100
[2017-02-28] MEDS: SODIUM CHLORIDE 0.9% FLUSH 10 ML FLUSH IV FLUSH SCH ×2 (09:39→21:30)
[2017-02-28] MEDS ORDERED: IOHEXOL 350 MG/ML 50 ML BTL (for RAD DIAG) OTHER ONE (10:14)
--- NOTE | 2017-02-28 10:59 | HHI.NPPN ---
Subjective History of Present Illness 61-year-old with history of urinary stone Additional Remarks Patient had retroperitoneal bleed became unstable on vent UOP dropped Review of Systems General Constitutional: Fatigue Objective Data Data 02/28/17 03/01/17 18:59 06:59 Output Total 0 ml Balance 0 ml Drainage Total 0 ml Vital Signs Date Time Temp Pulse Resp B/P (MAP) Pulse Ox O2 Delivery O2 Flow Rate FiO2 02/28/17 10:32 100 100 02/28/17 10:00 102 02/28/17 08:00 97.9 99 20 134/73 (93) 100 02/28/17 08:00 99 02/28/17 07:00 100 Nasal Cannula 2.00 02/28/17 06:45 100 100 02/28/17 06:00 98.7 95 25 77/53 98 02/28/17 06:00 128 02/28/17 06:00 98.6 85 24 110/60 10 02/28/17 05:35 99 100 02/28/17 05:13 98.9 115 30 134/59 99 02/28/17 04:43 98.6 88 22 96/48 98 02/28/17 04:00 94 02/28/17 04:00 98.6 94 21 120/58 (78) 97 02/28/17 02:45 98.6 95 19 161/70 98 02/28/17 02:00 85 02/28/17 01:45 98.6 84 22 201/90 98 02/28/17 01:34 98.6 84 24 198/92 99 02/28/17 01:19 98.8 24 178/80 98 02/28/17 00:05 98.8 74 22 110/63 100 02/28/17 00:00 90 02/28/17 00:00 98.6 90 19 140/62 (88) 98 02/27/17 23:50 89.2 79 22 121/73 100 02/27/17 23:22 98.2 93 21 145/79 100 02/27/17 23:07 98.2 89 20 151/79 98 02/27/17 22:55 84 100/62 02/27/17 22:00 96 02/27/17 21:33 100 Nasal Cannula 2.00 02/27/17 21:10 94 94/64 02/27/17 20:40 96 108/72 02/27/17 20:22 98.0 94 29 132/73 100 02/27/17 20:16 98.0 95 27 132/73 100 02/27/17 20:10 96 123/75 02/27/17 20:02 98.0 97 23 109/65 100 02/27/17 20:01 98.0 99 23 109/65 100 02/27/17 20:00 100 02/27/17 20:00 98.6 96 23 109/65 (80) 100 02/27/17 20:00 98.0 99 25 98/64 100 02/27/17 19:45 96 123/75 02/27/17 19:35 97.0 95 25 98/65 100 02/27/17 19:30 96 109/65 02/27/17 19:29 96.4 95 25 85/51 100 02/27/17 19:00 96 89/58 02/27/17 19:00 100 Nasal Cannula 2.00 02/27/17 16:00 96.8 86 24 78/55 (63) 100 02/27/17 16:00 86 02/27/17 16:00 86 78/55 02/27/17 15:45 90 76/51 02/27/17 15:30 92 82/55 02/27/17 15:15 91 80/54 02/27/17 15:00 91 79/54 02/27/17 14:52 92 83/55 02/27/17 14:45 94 64/49 02/27/17 14:00 94 02/27/17 12:00 88 02/27/17 12:00 88 70/54 02/27/17 12:00 97.3 88 15 70/54 (59) 100 02/27/17 11:48 100 Nasal Cannula 2.00 02/27/17 11:45 95 71/51 02/27/17 11:30 92 77/50 02/27/17 11:15 94 89/57 02/27/17 11:00 90 81/53 -: 02/28/17 0815 02/28/17 0815 Physical Exam General Appearance: Pale Eyes Eye Exam: Pupils Equal Throat Throat Exam: Oral Mucosa Ganister & Moist Neck Neck Exam: Neck Supple Pulmonary Resp Exam: Crackles, Rhonchi, Decreased Bases, Diminished Breath Sounds Cardiology CV Exam: Normal Sinus Rhythm, Tachycardia Gastrointestinal/Abdomen GI Exam: Non-Tender, Distended Extremeties Extremities Exam: Moderate Edema Assessment/Plan Problem List: (1) Acute renal failure ICD Codes: N17.9 - Acute kidney failure, unspecified Status: Acute Plan: Patient developed Hypotension,sepsis staph aureus respiratory failure and increase WBC. Had aspiration pneumonia, developed sepsis with ARF again creatinine declined slightly post hydration he also had retro peritoneal bleed elevated intra abdominal pressures Cr rising with poor UOP May need CRRT poor prognosis underwent Coiling of bleeding vessels large bleed 9.4 cm around rt kidney and 16.7 cm around retroperitoneum (2) CKD (chronic kidney disease) stage 3, GFR 30-59 ml/min ICD Codes: N18.3 - Chronic kidney disease, stage 3 (moderate) Status: Chronic Plan: Ultrasound revealed chronic kidney disease there is no kidney stones (3) Diabetes ICD Codes: E11.9 - Type 2 diabetes mellitus without complications Plan: Continue to monitor (4) Distal end of ulna fracture, closed ICD Codes: S52.609A - Unspecified fracture of lower end of unspecified ulna, initial encounter for closed fracture Status: Acute Plan: Orthopedic is following Problem Qualifiers (1) Acute renal failure: Qualified Codes: N17.9 - Acute kidney failure, unspecified Laura Liao MD Feb 28, 2017 10:59
[2017-02-28] MEDS: VASOPRESSIN INJ 40 UNITS in DEXTROSE 5% IN WATER 100ML INJ 98 ML IV SCH ×4 (11:00→21:31)
[2017-02-28] MEDS ORDERED: GELATIN 12 MM/7 MM FOAM I-ARTERIAL ONE (11:19)
--- NOTE | 2017-02-28 11:34 | PD.RAD ---
Post Procedure Progress Note Pre Procedure Diagnosis: (1) Hemorrhage Post Procedure Diagnosis: (1) Hemorrhage Procedure Date: Feb 28, 2017 Supervising Radiologist: Juan Bhakta Proceduralist/Assist: Hammad Kern RT(R), Kvng Mendoza RT(R)() Anesthesia: Conscious Sedation Plan of Activity Patient to Unit: Critical Care Patient Condition: Fair Additional Comments: active bleeding from small likely inferior and superior sacral branches of the right internal iliac artery. Coil embolized. No additional bleeding branches identified. See PACS Report for procedural detail/treatment Juan Bhakta MD Feb 28, 2017 11:34
[2017-02-28] MEDS: CISATRACURIUM INJ 100 MG in SODIUM CHLOR 0.9% 250 ML INJ 250 ML IV PRN ×4 (11:35→23:25)
[2017-02-28] MEDS: BUMETANIDE INJ 100 ML IV SCH (11:46)
--- NOTE | 2017-02-28 11:52 | RADRPT ---
EXAM DATE/TIME: 02/28/2017 08:01 [facility] COMPARISON: No previous studies available for comparison. INDICATIONS : Patient with retroperitoneal bleed in need of arterial embolization. MEDICAL HISTORY : Diabetes, Gout, Arthritis, Chronic kidney disease secondary to multiple kidney stones, HTN SURGICAL HISTORY : Kidney stents due to multiple stones ENCOUNTER: Initial ACUITY: 1 day PAIN SCORE: Nonresponsive. FLUORO TIME: 22.2 minutes IMAGE SERIES: 14 ACCESS SITE: Left Femoral artery CONTRAST: 1.) 100 cc Omnipaque (iohexol) 350 DEVICE(S): 1.) Right Branch of Posterior internal iliac artery embolic coil(s) 2D Interlock [id number] 2.) Right Branch of Posterior internal iliac artery embolic coil(s) 2D Interlock [id number] 3.) Right Branch of Posterior internal iliac artery embolic coil(s) 2D Interlock [id number] 4.) Right Branch of Posterior internal iliac artery Gelfoam 12-7mm 5.) Right Branch of Posterior internal iliac artery Gelfoam 12-7mm 6.) Left common femoral Syvek pad PROCEDURE : 1. Ultrasound-guided puncture of the access site. 2. Conscious sedation with continuous EKG and Oximetry monitoring. 3. Abdominal aortogram and AP pelvic angiogram 4. Selective catheter placement in the right internal iliac artery with selective angiography 5. subselective catheter placement in the posterior branch of the right internal iliac artery with rogers bsequent angiograph. 6. Coil and Gelfoam embolization of lateral sacral branch of the right internal iliac posterior branc h 7. Coil and Gelfoam embolization of iliolumbar branch of the right internal iliac artery The risks, benefits and alternatives to the procedure were explained and verbal and written consent w as obtained. The site was prepped in sterile fashion. Full sterile technique was used, including ca p, mask, sterile gloves and gown and a large sterile sheet. Hand hygiene and 2% chlorhexidine and/or betadine/alcohol prep was utilized per protocol for cutaneous antisepsis. Sterile gel and sterile p robe cover were utilized for ultrasound guidance. The skin and subcutaneous tissues were infiltrated with local anesthetic solution. With ultrasound and fluoroscopic guidance the selected artery was punctured and a vascular sheath was placed. 4 Tamazight PICC flush catheter was advanced into the abdominal aorta and aortogram was perform ed. This demonstrated possible extravasation in the lateral right lower quadrant partially imaged. Th erefore catheter was retracted to the distal aorta and pelvic angina was performed centered about the right pelvis. This confirmed active extravasation from a small branch of the posterior division of t he right internal iliac artery, likely lateral sacral branch. The catheter was then advanced into the posterior branch of the right internal iliac artery and angiography again performed. This confirmed the findings. A renegade microcatheter was then used to subselect the suspected lateral sacral branch and the branch was coiled distally with 2 mm and 3 mm interlock coils and small bowel Gelfoam. Foll owup angiography demonstrated stasis of flow in the otherwise branches. However, there is continued e xtravasation of contrast in the same region likely from an iliolumbar branch collaterals. The cathete r was then repositioned into this branch and angiography performed confirming the findings. Next, thi s branch was embolized with 2 mm coil and additional Gelfoam. Followup angiography demonstrated stasi s of flow it without additional extravasation. Microcatheter was removed and the repeat aortogram and pelvic angiograms were performed with contrast and CO2. This confirmed stasis of flow in the emboliz ed branches without additional extravasation. Wires and catheters were then removed. The puncture site was closed with manual pressure and hemostasis was obtained. The patient tolerated the procedure well and there were no complications. Conscious sedation was performed with the prescribed dosages and duration as above in the presence of an independent trained radiology nurse to assist in the monitoring of the patient. EKG and oximetry remained stable throughout the procedure. CONCLUSION: 1. Active hemorrhage from distal right lateral sacral and iliolumbar branches successfully coil and G elfoam embolized, as above. Juan Bhakta MD on February 28, 2017 at 11:26 Board Certified Radiologist. This report was verified electronically.
[2017-02-28 12:23] LABS: HEMATOCRIT 29.3 % (39.0-51.0); REVIEW FLAG FINAL
[2017-02-28] MEDS: SODIUM CHLOR 0.9% 1000 ML INJ 1,000 ML IV SCH (12:37)
[2017-02-28] MEDS: PANTOPRAZOLE SODIUM 40 MG VIAL IV PUSH SCH ×2 (12:37→21:31)
[2017-02-28] MEDS: FLUCONAZOLE 400 MG PREMIX BAG 200 ML IV SCH (12:42)
--- NOTE | 2017-02-28 13:37 | MB ---
cc: OLLIE DICKEY M.D. DATE OF CONSULTATION: 02/28/2017 REASON FOR CONSULTATION Possible abdominal compartment syndrome. HISTORY OF PRESENT ILLNESS Mr. Kerr is an unfortunate 62-year-old gentleman who has had an extremely difficult hospital course. Apparently he was originally admitted on 02/11/2017 after a fall. He has had multiple episodes of sepsis and has been recently diagnosed with transverse myelitis. He has been in and out of the ICU and had multiple intubations and extubations secondary to sepsis, pneumonia, etc. Most recently he was emergently intubated last night for an acute hypotensive episode. At that time he was found to have a large retroperitoneal hematoma with active bleeding. He underwent embolization by interventional radiology. He received a large volume resuscitation, approximately 10 units of blood products overnight. This morning he was noted to be very edematous and distended and Dr. Aguiar had the nursing staff check bladder pressures. His initial bladder pressure I believe was 50 per report. The patient was hypotensive and oliguric and high peak pressures. Dr. Aguiar was concerned about possible abdominal compartment syndrome and he asked me to see the patient. I came to see the patient right away. Since the consultation Dr. Aguiar states that they paralyzed the patient and placed him supine on the bed. He has remained hemodynamically unstable in severe shock. The patient is currently intubated in shock and unable to answer any questions or participate in the exam. Therefore, the majority of the history had to be obtained from the EMR. PAST MEDICAL HISTORY 1. Nephrolithiasis. 2. Renal insufficiency. 3. Diabetes. 4. Gout. PAST SURGICAL HISTORY He has had multiple kidney stone procedures. No abdominal surgeries are noted. MEDICATIONS His medication list is extensive. Please see the chart. ALLERGIES LEVAQUIN. FAMILY HISTORY Unobtainable. SOCIAL HISTORY Unobtainable. REVIEW OF SYSTEMS Unobtainable. PHYSICAL EXAMINATION VITAL SIGNS: Currently his pulse is 90, blood pressure 130/80. His pulse oximeter is currently reading 100%. I believe he is on 50% FIO2 currently on the ventilator. GENERAL: An obese gentleman lying supine in the ICU with nursing staff present. HEENT: Pupils are reactive. His face is quite edematous. He has an endotracheal tube and an orogastric tube in place. NECK: Supple. LUNGS: Clear to auscultation bilaterally. HEART: S1, S2, tachycardic. ABDOMEN: Overall is distended but fairly soft. He has a small umbilical hernia. He certainly does not have a tense rigid abdomen as I would expect with a true compartment syndrome. He does have some give when you press down on his abdomen. Bowel sounds are absent. There are no surgical incisions. EXTREMITIES: No gross deformity x4. NEUROLOGIC: He is paralyzed, intubated and sedated. LABORATORY White blood cell count 17, hemoglobin 11, platelet count 137. Electrolytes are remarkable for a creatinine of 1.8, glucose 234, lactic acid 2.2. Amylase is 123, lipase 1222. INR is 1.1 with a PT of 11.9. IMAGING CT of the abdomen and pelvis done last night demonstrates the retroperitoneal hematomas with a small amount of free fluid in the abdomen. No gross abnormalities noted with the bowel, liver, gallbladder, or pancreas. Bladder pressure was checked at the bedside by the nursing staff and myself and Dr. Aguiar present. I believe the reading was 25 on the new bladder pressure, now that they have paralyzed him and placed him flat in the bed. IMPRESSION Multiorgan system failure with shock, likely of multifactorial etiology. PLAN At this point I do not believe the patient has compartment syndrome. He certainly has a few components of abdominal compartment syndrome but he does not have the entire syndrome itself. Overall his abdomen is distended but is soft and you can push on it. He does have some room within his abdominal cavity. Certainly the retroperitoneal hematoma and the third spacing of fluid could contribute to him getting abdominal compartment syndrome in the near future. Dr. Aguiar and I discussed the case and he felt like he was going to try and manage him medically now with paralysis leaving him flat in the bed and may be attempting a gentle diuresis. I have asked Dr. Aguiar if the patient becomes hypotensive, oliguric or if lactic acid starts to climb, his peak pressures on the ventilator start to climb, or his bladder pressure starts to climb, to please let me know and we would gladly consider decompressive laparotomy as a lifesaving maneuver. Thank you for allowing me to participate in the care of this most unfortunate patient. MD ARNAV Loco/ELSY /12:59 PM /1:09 PM
[2017-02-28] MEDS: ARTIFICIAL TEARS OPTH SOLN 15 ML BTL EACH EYE SCH ×2 (13:45→21:32)
--- NOTE | 2017-02-28 14:57 | HHI.IDPN ---
Subjective Subjective Remarks Patient is a 62-year-old male, admitted to the hospital for evaluation of pain in his right wrist. He gave a history of falling about a week ago and apparently had immediate pain in the right wrist. He did not seek any medical attention initially because reportedly he was very busy. He eventually presented, and he was found to have a distal ulnar fracture on plain films. He also had some redness and swelling. Orthopedics saw the patient, and was being treated conservatively with the splint. During this hospitalization also he started complaining of generalized weakness but more so in his lower extremity than his upper extremity. He had swelling in both lower extremity which revealed evidence of DVT in the posterior tibial veins. Neurology had seen the patient and he underwent lumbar puncture which apparently was traumatic. Patient was therefore not given anticoagulation because of the traumatic LP, and he underwent placement of an IVC filter on January 25. Patient had another lumbar puncture on February 01. He was felt to have transverse myelitis, and he was given high-dose IV Solu-Medrol from January 27 to February 02. There was apparently some improvement in his weakness. The imaging studies done for his weakness showed some spinal stenosis, and neurosurgery was consult that and recommended that there was no surgical intervention to be done. Patient has been stabilizing, but last night apparently deteriorated, and he ended up getting intubated, and had significant hypotension requiring pressors. There was also an ultrasound done of his left upper extremity which showed DVT, and there was evidence of superior 2 thrombophlebitis. Vascular surgery was consult to it and he had IND on his left upper extremity. Patient has had some fevers since yesterday. 2 blood cultures were done yesterday and they're now reported as growing gram-positive cocci in [place] in clusters. He is currently sedated and intubated. He is on Levophed and vasopressin. A central line was placed as well as a femoral a line. He apparently had an IV in his left upper extremity and that was removed yesterday. Patient also has history of chronic kidney disease, and nephrology evaluated the patient. He was just being monitored for his renal insufficiency. Infectious disease consultation has been requested to evaluate the patient. Notes reviewed D/W RN D/W Dr Aguiar Events noted Has large and expanding retroperitoneal hematoma Had coiling of bleeder. Was on levophed and epinephrine earlier, on standby now Received more blood and FFP Temps ok Seen by GS On nimbex and sedation Has line RIJ, and line LSC Has CT on R On vanco, Diflucan and Zosyn now Creatinine rising Low UO UC with GNR BC negative so far Antibiotics Vancomycin Zosyn Diflucan Lines LSC TLC RIJ cordis Past Medical History Reviewed Allergies: Coded Allergies: levofloxacin (Verified Allergy, Severe, 01/22/17) Objective . Vital Signs Date Time Temp Pulse Resp B/P (MAP) Pulse Ox O2 Delivery O2 Flow Rate FiO2 02/28/17 14:15 97.6 83 20 103/65 (78) 100 02/28/17 14:00 83 02/28/17 13:45 97.5 96 20 125/74 (91) 100 02/28/17 13:15 97.8 83 20 127/75 (92) 100 02/28/17 13:06 100 45 02/28/17 12:45 97.5 92 20 130/78 (95) 100 02/28/17 12:15 97.5 92 20 138/79 (98) 100 02/28/17 12:00 97.6 98 20 163/91 (115) 100 02/28/17 12:00 97.6 98 20 163/91 (115) 100 02/28/17 12:00 98 02/28/17 12:00 50 02/28/17 11:45 97.9 90 28 192/92 (125) 100 02/28/17 11:30 97.9 94 28 166/94 (118) 100 02/28/17 11:00 99 129/87 02/28/17 10:32 100 100 02/28/17 10:00 102 02/28/17 08:00 97.9 99 20 134/73 (93) 100 02/28/17 08:00 99 02/28/17 07:00 100 Nasal Cannula 2.00 02/28/17 06:45 100 100 02/28/17 06:00 98.7 95 25 77/53 98 02/28/17 06:00 128 02/28/17 06:00 98.6 85 24 110/60 10 02/28/17 05:35 99 100 02/28/17 05:13 98.9 115 30 134/59 99 02/28/17 04:43 98.6 88 22 96/48 98 02/28/17 04:00 94 02/28/17 04:00 98.6 94 21 120/58 (78) 97 02/28/17 02:45 98.6 95 19 161/70 98 02/28/17 02:00 85 02/28/17 01:45 98.6 84 22 201/90 98 02/28/17 01:34 98.6 84 24 198/92 99 02/28/17 01:19 98.8 24 178/80 98 02/28/17 00:05 98.8 74 22 110/63 100 02/28/17 00:00 90 02/28/17 00:00 98.6 90 19 140/62 (88) 98 02/27/17 23:50 89.2 79 22 121/73 100 02/27/17 23:22 98.2 93 21 145/79 100 02/27/17 23:07 98.2 89 20 151/79 98 02/27/17 22:55 84 100/62 02/27/17 22:00 96 02/27/17 21:33 100 Nasal Cannula 2.00 02/27/17 21:10 94 94/64 02/27/17 20:40 96 108/72 02/27/17 20:22 98.0 94 29 132/73 100 02/27/17 20:16 98.0 95 27 132/73 100 02/27/17 20:10 96 123/75 02/27/17 20:02 98.0 97 23 109/65 100 02/27/17 20:01 98.0 99 23 109/65 100 02/27/17 20:00 100 02/27/17 20:00 98.6 96 23 109/65 (80) 100 02/27/17 20:00 98.0 99 25 98/64 100 02/27/17 19:45 96 123/75 02/27/17 19:35 97.0 95 25 98/65 100 02/27/17 19:30 96 109/65 02/27/17 19:29 96.4 95 25 85/51 100 02/27/17 19:00 96 89/58 02/27/17 19:00 100 Nasal Cannula 2.00 02/27/17 16:00 96.8 86 24 78/55 (63) 100 02/27/17 16:00 86 02/27/17 16:00 86 78/55 02/27/17 15:45 90 76/51 02/27/17 15:30 92 82/55 02/27/17 15:15 91 80/54 02/27/17 15:00 91 79/54 02/27/17 14:52 92 83/55 02/28/17 02/28/17 03/01/17 15:00 23:00 07:00 Output Total 0 ml Balance 0 ml Drainage Total 0 ml . Laboratory Tests Test 02/26/17 21:17 02/26/17 22:41 02/27/17 04:30 02/27/17 12:00 White Blood Count 12.0 TH/MM3 16.1 TH/MM3 Red Blood Count 2.19 MIL/MM3 2.69 MIL/MM3 Hemoglobin 5.8 GM/DL 5.8 GM/DL 7.6 GM/DL 7.8 GM/DL Hematocrit 18.2 % 23.0 % 24.3 % Mean Corpuscular Volume 83.2 FL 85.4 FL Mean Corpuscular Hemoglobin 26.4 PG 28.2 PG Mean Corpuscular Hemoglobin Concent 31.7 % 33.1 % Red Cell Distribution Width 18.7 % 16.7 % Platelet Count 204 TH/MM3 204 TH/MM3 Mean Platelet Volume 8.2 FL 8.0 FL Neutrophils (%) (Auto) 73.3 % Lymphocytes (%) (Auto) 17.2 % Monocytes (%) (Auto) 9.0 % Eosinophils (%) (Auto) 0.3 % Basophils (%) (Auto) 0.2 % Neutrophils # (Auto) 8.8 TH/MM3 Lymphocytes # (Auto) 2.1 TH/MM3 Monocytes # (Auto) 1.1 TH/MM3 Eosinophils # (Auto) 0.0 TH/MM3 Basophils # (Auto) 0.0 TH/MM3 CBC Comment DIFF FINAL Differential Comment Blood Smear Pathologist Review Haptoglobin 146 MG/DL Test 02/27/17 16:59 02/27/17 20:55 02/28/17 00:15 02/28/17 08:15 Hemoglobin 7.1 GM/DL 8.5 GM/DL 6.5 GM/DL 11.5 GM/DL Hematocrit 22.1 % 25.4 % 19.4 % 34.0 % White Blood Count 26.9 TH/MM3 15.5 TH/MM3 17.7 TH/MM3 Red Blood Count 2.93 MIL/MM3 2.24 MIL/MM3 3.91 MIL/MM3 Mean Corpuscular Volume 86.7 FL 86.6 FL 86.9 FL Mean Corpuscular Hemoglobin 28.9 PG 29.2 PG 29.4 PG Mean Corpuscular Hemoglobin Concent 33.3 % 33.7 % 33.8 % Red Cell Distribution Width 14.8 % 14.6 % 14.7 % Platelet Count 157 TH/MM3 93 TH/MM3 137 TH/MM3 Mean Platelet Volume 8.6 FL 8.0 FL 8.6 FL Neutrophils (%) (Auto) 85.7 % 90.2 % Lymphocytes (%) (Auto) 8.2 % 5.5 % Monocytes (%) (Auto) 6.0 % 4.2 % Eosinophils (%) (Auto) 0.0 % 0.1 % Basophils (%) (Auto) 0.1 % 0.0 % Neutrophils # (Auto) 13.3 TH/MM3 15.9 TH/MM3 Lymphocytes # (Auto) 1.3 TH/MM3 1.0 TH/MM3 Monocytes # (Auto) 0.9 TH/MM3 0.7 TH/MM3 Eosinophils # (Auto) 0.0 TH/MM3 0.0 TH/MM3 Basophils # (Auto) 0.0 TH/MM3 0.0 TH/MM3 CBC Comment AUTO DIFF AUTO DIFF Differential Total Cells Counted 100 100 Neutrophils % (Manual) 77 % 78 % Band Neutrophils % 5 % 8 % Lymphocytes % 10 % 4 % Monocytes % 3 % 5 % Neutrophils # (Manual) 13.5 TH/MM3 16.1 TH/MM3 Myelocytes 3 % 2 % Promyelocytes 2 % Differential Comment FINAL DIFF MANUAL FINAL DIFF MANUAL Platelet Estimate LOW LOW Platelet Morphology Comment NORMAL NORMAL Basophilic Stippling FAINT Metamyelocytes 3 % Nucleated Red Blood Cells 1 /100 WBC Red Cell Morphology Comment NORMAL Test 02/28/17 12:00 Hemoglobin 10.1 GM/DL Hematocrit 29.3 % Laboratory Tests Test 02/26/17 21:17 02/27/17 04:30 02/27/17 12:00 02/27/17 20:55 Blood Urea Nitrogen 17 MG/DL 20 MG/DL 22 MG/DL 24 MG/DL Creatinine 0.96 MG/DL 1.21 MG/DL 1.51 MG/DL 1.92 MG/DL Random Glucose 97 MG/DL 222 MG/DL 258 MG/DL 231 MG/DL Total Protein 3.9 GM/DL 3.7 GM/DL 3.9 GM/DL 4.2 GM/DL Calcium Level 6.7 MG/DL 6.5 MG/DL 7.3 MG/DL 7.2 MG/DL Magnesium Level 1.3 MG/DL 1.7 MG/DL Sodium Level 146 MEQ/L 142 MEQ/L 142 MEQ/L 141 MEQ/L Potassium Level 3.6 MEQ/L 3.9 MEQ/L 4.2 MEQ/L 4.4 MEQ/L Chloride Level 115 MEQ/L 111 MEQ/L 112 MEQ/L 109 MEQ/L Carbon Dioxide Level 22.7 MEQ/L 21.3 MEQ/L 18.2 MEQ/L 17.5 MEQ/L Anion Gap 8 MEQ/L 10 MEQ/L 12 MEQ/L 15 MEQ/L Estimat Glomerular Filtration Rate 79 ML/MIN 61 ML/MIN 47 ML/MIN 36 ML/MIN Lactic Acid Level 1.7 mmol/L 2.7 mmol/L 6.9 mmol/L Protein Corrected Calcium 8.4 MG/DL 8.3 MG/DL 9.2 MG/DL 8.9 MG/DL Troponin I 0.03 NG/ML 0.04 NG/ML Phosphorus Level 3.9 MG/DL Lactate Dehydrogenase 199 U/L Lipase 1329 U/L Procalcitonin 1.76 ng/mL Random Cortisol 38.6 MCG/DL Albumin 1.8 GM/DL Test 02/27/17 23:55 02/28/17 08:15 02/28/17 12:00 Lactic Acid Level 3.0 mmol/L 2.7 mmol/L 2.2 mmol/L Blood Urea Nitrogen 22 MG/DL Creatinine 1.88 MG/DL Random Glucose 234 MG/DL Total Protein 5.4 GM/DL Albumin 2.6 GM/DL Calcium Level 10.1 MG/DL Phosphorus Level 6.1 MG/DL Magnesium Level 2.1 MG/DL Alkaline Phosphatase 81 U/L Aspartate Amino Transf (AST/SGOT) 72 U/L Alanine Aminotransferase (ALT/SGPT) 24 U/L Total Bilirubin 0.9 MG/DL Sodium Level 142 MEQ/L Potassium Level 3.8 MEQ/L Chloride Level 109 MEQ/L Carbon Dioxide Level 20.9 MEQ/L Anion Gap 12 MEQ/L Estimat Glomerular Filtration Rate 37 ML/MIN Ammonia 23 MCMOL/L Amylase Level 123 U/L Lipase 1222 U/L Microbiology Date/Time Source Procedure Growth Status 02/27/17 03:48 Blood Peripheral Aerobic Blood Culture - Preliminary NO GROWTH IN 1 DAY Resulted 02/27/17 03:48 Blood Peripheral Anaerobic Blood Culture - Preliminary NO GROWTH IN 1 DAY Resulted 02/27/17 03:40 Blood Peripheral Aerobic Blood Culture - Preliminary NO GROWTH IN 1 DAY Resulted 02/27/17 03:40 Blood Peripheral Anaerobic Blood Culture - Preliminary NO GROWTH IN 1 DAY Resulted 02/27/17 08:32 Urine Catheterized Urine Urine Culture - Preliminary Gram Negative Holger Resulted Imaging Chest X-Ray 02/24/17 0600 Signed Impressions: Service Date/Time: Friday, February 24, 2017 03:58 - CONCLUSION: 1. Unchanged left lower lobe infiltrate with small effusion. Candido Mendoza Jr., MD Chest X-Ray 02/20/17 0000 Signed Impressions: Service Date/Time: Monday, February 20, 2017 11:36 - CONCLUSION: 1. Stable very small right and small left pleural effusions with left lower lobe airspace consolidation. 2. No significant interval change. Juan Bhakta MD Abdomen/Pelvis CT 02/19/17 0000 Signed Impressions: Service Date/Time: Sunday, February 19, 2017 19:09 - CONCLUSION: 1. Areas of calcification seen in the right renal collecting system, right renal pelvis, and proximal right ureter. These appear to layer and be dependent suggesting likely to represent smaller areas of milk of calcium or small stones. There is mild dilatation of the right renal collecting system and right ureter. A definite obstructing stone at this time is not seen. 2. A small amount of air within the urinary bladder. This should be correlated with any recent catheterization. 3. Mild bilateral pleural effusions with accompanying atelectasis or consolidation at the left base. The consolidation was present previously. 4. Prominent degenerative change in the lumbar spine and at the hip joints bilaterally. Angelo Manzo MD Chest X-Ray 02/12/17 0600 Signed Impressions: Service Date/Time: Sunday, February 12, 2017 03:32 - CONCLUSION: 1. Support apparatus in good position. Relatively stable basilar airspace disease and pleural effusions. Trace Holloway MD Upper Extremity Ultrasound 02/10/17 0000 Signed Impressions: Service Date/Time: Friday, February 10, 2017 18:46 - CONCLUSION: Occlusive thrombus in the cephalic and basilic veins. Benjamin Person MD Lung Scan- Nuclear Medicine 02/10/17 0000 Signed Impressions: Service Date/Time: Friday, February 10, 2017 22:17 - CONCLUSION: Low probability pulmonary embolism. Candido Patton MD Head CT 02/10/17 Signed Impressions: Service Date/Time: Friday, February 10, 2017 23:51 - CONCLUSION: Negative noncontrast CT brain. Candido Patton MD Chest CT 02/10/17 Signed Impressions: Service Date/Time: Friday, February 10, 2017 23:56 - CONCLUSION: Left lower lobe collapse with consolidation. Patchy infiltrates the medial right lower lung. Candido Patton MD Abdomen/Pelvis CT 02/10/17 Signed Impressions: Service Date/Time: Friday, February 10, 2017 23:59 - CONCLUSION: 1. Nonobstructing 12 mm calcified stone lower pole right kidney. 2. Atrophic left kidney with significant cortical thinning. 3. Bilateral fat-containing inguinal hernias, large on the right, and moderate on the left. 4. Consolidative collapse of the left lower lobe. Candido Patton MD Abdomen X-Ray 02/10/17 Signed Impressions: Service Date/Time: Friday, February 10, 2017 08:14 - CONCLUSION: No acute abdominal abnormality is identified. Angelo Allen MD Wrist X-Ray 02/06/17 0000 Signed Impressions: Service Date/Time: Monday, February 06, 2017 12:50 - CONCLUSION: Minimally displaced distal radius and ulnar fractures. Armando Dodd MD Lumbar Puncture Fluoroscopy 02/01/17 0000 Signed Impressions: Service Date/Time: January 09:35 - CONCLUSION: Uncomplicated fluoroscopically guided lumbar puncture. CSF was clear. Nabeel Peralta MD Head Magnetic Resonance Angiography 01/27/17 0000 Signed Impressions: Service Date/Time: Friday, January 27, 2017 10:33 - CONCLUSION: No intracranial vascular abnormality is identified. There is no aneurysm visualized. Angelo Allen MD IVC Filter Placement X-Ray 01/25/17 0000 Signed Impressions: Service Date/Time: January 10:29 - CONCLUSION: Uncomplicated inferior vena cava filter placement as above. Yung Fowler MD Thoracic Spine MRI 01/24/17 Signed Impressions: Service Date/Time: Tuesday, January 24, 2017 22:29 - CONCLUSION: 1. Mild degenerative spondylosis most prominently at T11-L1 with slight effacement of the anterior thecal sac and left lateral recess. No significant neural foraminal stenosis. 2. No acute fracture. Juan Bhakta MD Renal Ultrasound 01/23/17 Signed Impressions: Service Date/Time: Monday, January 23, 2017 08:53 - CONCLUSION: 1. Evidence of chronic parenchymal disease of both kidneys. No obstructive uropathy or other acute abnormality demonstrated. 2. Trace ascites, nonspecific. Angelo Garrido MD Lumbar Spine MRI 01/23/17 Signed Impressions: Service Date/Time: Monday, January 23, 2017 17:01 - CONCLUSION: 1. At L4-5 is a broad-based disc protrusion with severe central canal and lateral recess stenosis and flattening of the exiting right L4 nerve root. 2. L5-S1 there is a disc protrusion and moderate stenosis with flattening of the exiting L5 nerve roots bilaterally. 3. At L3-4 there is a moderate to severe central stenosis and lateral recess stenosis with mild foraminal stenosis. 4. No acute fracture or spondylolisthesis. Trace Holloway MD Lower Extremity Ultrasound 01/23/17 Signed Impressions: Service Date/Time: Monday, January 23, 2017 09:53 - CONCLUSION: Bilateral focal lower extremity DVT involving the posterior tibial veins. Angelo Garrido MD Cervical Spine MRI 01/23/17 Signed Impressions: Service Date/Time: Monday, January 23, 2017 17:01 - CONCLUSION: 1. Multilevel cervical spine degenerative changes as above. 2. Mild degrees of spinal stenosis at C3/C4-C6/C7. No cord compression or cord signal abnormality. 3. Age indeterminate left paracentral/foraminal disc protrusion at C6/C7. 4. Multilevel foraminal stenosis, most severe on the left at C6/C7. Please see individual levels above. 5. No fracture or subluxation of the cervical spine. Angelo Garrido MD Brain MRI 01/23/17 0000 Signed Impressions: Service Date/Time: Monday, January 23, 2017 17:01 - CONCLUSION: 1. No acute stroke or other acute intracranial abnormality demonstrated. 2. Moderate severity chronic white matter changes, nonspecific but most likely related to chronic small vessel disease. 3. Few scattered tiny lacunar infarcts of the brainstem. 4. Given the findings are not entirely specific, clinical evaluation for possible multiple sclerosis recommended. Angelo Garrido MD Knee X-Ray 01/22/[id number] Signed Impressions: Service Date/Time: Sunday, January 22, 2017 21:17 - CONCLUSION: 1. Evidence of moderate to large joint effusion. 2. No acute fracture or malalignment. 3. Mild 3 compartment osteoarthritic change. Benjamin Person MD Hip and Pelvis X-Ray [id number]/22/[id number] Signed Impressions: Service Date/Time: Sunday, January 22, 2017 21:10 - CONCLUSION: 1. Mild to moderate degenerative change of both hips with no acute fracture or malalignment. There is flattening and remodeling of the right humeral head. Benjamin Person MD Physical Exam GENERAL:Sedated and on nimbex. On vent, NAD, looks edematous SKIN: Cool and dry. No generalized rash. EYES: [place] conjunctiva. No petechia or hemorrhage. EARS, NOSE AND THROAT: Nose without bleeding or purulent nasal discharge. ET in mouth NECK: Trachea midline. Supple and no meningeal signs CARDIOVASCULAR: Regular rate and rhythm. Soft heart sounds. No murmurs, rubs or gallops heard RESPIRATORY: Coarse BS bilaterally, decreased at bases. R CT with serosanguineous fluid ABDOMEN: Soft, mildly distended, no reaction to palpation EXTREMITIES: No clubbing, cyanosis. Both hands less edematous. Has evidence of multiple gouty tophi in both hands and feet. LUE - wound vac in place NEUROLOGICAL: Sedated and on NImbex PSYCHIATRIC: Unable to assess LINE: Lines with no evidence of infection Assessment & Plan Remarks IMPRESSION New shock, due to large R retroperitoneal bleed, S/P multiple transfusions and S/P coiling of bleeders Elevated amylase and lipase, ?due to shock Anemia, due to bleed, retroperitoneal MSSA sepsis, due to suppurative thrombophlebitis LUE, S/P I and D and excision of portion of cephalic vein Respiratory failure, has had several intubations - reintubated again today 02/28 Recent Rx 7 days high dose solumedrol for transverse myelitis Wu LE DVT has IVC filter placed 01/25 - ?hypercoagulable state Chronic kidney disease, worsening creatinine - shock and compression of ureter by hematoma Known DM, HTN Gouty tophi both hands and feet Diarrhea, C diff negative UTI, GNR RECOMMENDATION Continue empiric Abx for new shock: vanco, Zosyn and Diflucan Vanco will cover the MSSA - needs MSSA Rx until Mar 25 Follow new C/S H/H being monitored Monitor temps Monitor progress D/W RN D/W Dr Aguiar ([facility]) Spoke with family Irene Edwards MD Feb 28, 2017 14:57
[2017-02-28 15:49] LABS: BLOOD GAS BASE EXCESS -3.6 mmol/L (-2-2); BLOOD GAS CARBOXYHEMOGLOBIN 1.4 % (0-4); BLOOD GAS HCO3 19 mmol/L (22-26); BLOOD GAS METHEMOGLOBIN 1.2 % (0-2); BLOOD GAS O2 HGB SATURATION 97 % (90-100); BLOOD GAS OXYGEN CONTENT 10.4 Vol % (12.0-20.0); BLOOD GAS PCO2 26 mmHg (38-42); BLOOD GAS PO2 153 mmHg (61-120); BLOOD GAS TOTAL HGB 7.4 G/DL (12.0-16.0); TEMP CORR TO 98.6
[2017-02-28 15:50] LABS: CRITICAL VALUE NO; DRAW SITE ART LINE; FIO2 45 %; OXYGEN DEVICE VENTILATOR; STAT NO; VENT SETTINGS PRVC/AC
[2017-02-28 16:18] LABS: REVIEW FLAG FINAL
--- NOTE | 2017-02-28 16:18 | HHI.GIFU ---
Subjective Remarks Pt went to required multiple blood transfusions overnight. Found to have retroperitoneal bleed on CT scan. Went down for embolization by IR today ( right internal iliac artery). (Nena Driver) Objective Vitals I&O Vital Signs Date Time Temp Pulse Resp B/P (MAP) Pulse Ox O2 Delivery O2 Flow Rate FiO2 02/28/17 15:15 96.4 82 20 149/90 (109) 100 02/28/17 14:15 97.6 83 20 103/65 (78) 100 02/28/17 14:00 83 02/28/17 13:45 97.5 96 20 125/74 (91) 100 02/28/17 13:15 97.8 83 20 127/75 (92) 100 02/28/17 13:06 100 45 02/28/17 12:45 97.5 92 20 130/78 (95) 100 02/28/17 12:15 97.5 92 20 138/79 (98) 100 02/28/17 12:00 97.6 98 20 163/91 (115) 100 02/28/17 12:00 97.6 98 20 163/91 (115) 100 02/28/17 12:00 98 02/28/17 12:00 50 02/28/17 11:45 97.9 90 28 192/92 (125) 100 02/28/17 11:30 97.9 94 28 166/94 (118) 100 02/28/17 11:00 99 129/87 02/28/17 10:32 100 100 02/28/17 10:00 102 02/28/17 08:00 97.9 99 20 134/73 (93) 100 02/28/17 08:00 99 02/28/17 07:00 100 Nasal Cannula 2.00 02/28/17 06:45 100 100 02/28/17 06:00 98.7 95 25 77/53 98 02/28/17 06:00 128 02/28/17 06:00 98.6 85 24 110/60 10 02/28/17 05:35 99 100 02/28/17 05:13 98.9 115 30 134/59 99 02/28/17 04:43 98.6 88 22 96/48 98 02/28/17 04:00 94 02/28/17 04:00 98.6 94 21 120/58 (78) 97 02/28/17 02:45 98.6 95 19 161/70 98 02/28/17 02:00 85 02/28/17 01:45 98.6 84 22 201/90 98 02/28/17 01:34 98.6 84 24 198/92 99 02/28/17 01:19 98.8 24 178/80 98 02/28/17 00:05 98.8 74 22 110/63 100 02/28/17 00:00 90 02/28/17 00:00 98.6 90 19 140/62 (88) 98 02/27/17 23:50 89.2 79 22 121/73 100 02/27/17 23:22 98.2 93 21 145/79 100 02/27/17 23:07 98.2 89 20 151/79 98 02/27/17 22:55 84 100/62 02/27/17 22:00 96 02/27/17 21:33 100 Nasal Cannula 2.00 02/27/17 21:10 94 94/64 02/27/17 20:40 96 108/72 02/27/17 20:22 98.0 94 29 132/73 100 02/27/17 20:16 98.0 95 27 132/73 100 02/27/17 20:10 96 123/75 02/27/17 20:02 98.0 97 23 109/65 100 02/27/17 20:01 98.0 99 23 109/65 100 02/27/17 20:00 100 02/27/17 20:00 98.6 96 23 109/65 (80) 100 02/27/17 20:00 98.0 99 25 98/64 100 02/27/17 19:45 96 123/75 02/27/17 19:35 97.0 95 25 98/65 100 02/27/17 19:30 96 109/65 02/27/17 19:29 96.4 95 25 85/51 100 02/27/17 19:00 96 89/58 02/27/17 19:00 100 Nasal Cannula 2.00 02/27/17 16:00 96.8 86 24 78/55 (63) 100 02/27/17 16:00 86 02/27/17 16:00 86 78/55 I/O 10/03/0602/27/17 02/27/17 02/28/17 02/28/17 02/28/17 06:59 14:59 22:59 06:59 14:59 22:59 Intake Total 3486 ml 2861 ml 3483 ml 6838 ml Output Total 1400 ml 0 ml 0 ml Balance 2086 ml 2861 ml 3483 ml 6838 ml 0 ml Intake Oral 480 ml IV Total 1706 ml 2211 ml 2053 ml 285 ml Packed Cells 800 ml 400 ml 800 ml 3200 ml FFP 545 ml 2523 ml Platelets 530 ml Cryoprecipitate 225 ml Blood Product IV Normal Saline Flush 500 ml 250 ml 85 ml 75 ml Output Urine Total 1325 ml Stool Total 75 ml Drainage Total 0 ml 0 ml 0 ml Bladder Scan Volume Amount 1000 ml 125 ml # Bowel Movements 1 Laboratory Laboratory Tests Test 02/27/17 16:59 02/27/17 18:23 02/27/17 20:55 02/27/17 21:34 Hemoglobin 7.1 8.5 Hematocrit 22.1 25.4 Blood Gas Puncture Site RT BRACHIAL RT BRACHIAL Blood Gas Patient Temperature 98.6 98.6 Blood Gas HCO3 12 18 Blood Gas Base Excess -11.5 -5.0 Blood Gas Oxygen Saturation 96 93 Arterial Blood pH 7.48 7.52 Arterial Blood Partial Pressure CO2 16 22 Arterial Blood Partial Pressure O2 98 73 Arterial Blood Oxygen Content 9.7 11.0 Arterial Blood Carboxyhemoglobin 1.4 1.6 Arterial Blood Methemoglobin 1.0 1.2 Blood Gas Hemoglobin 7.1 8.3 Oxygen Delivery Device NASAL CANNULA NASAL CANNULA Blood Gas Liter Flow 2 2 Blood Gas Inspired Oxygen 24 White Blood Count 26.9 Red Blood Count 2.93 Mean Corpuscular Volume 86.7 Mean Corpuscular Hemoglobin 28.9 Mean Corpuscular Hemoglobin Concent 33.3 Red Cell Distribution Width 14.8 Platelet Count 157 Mean Platelet Volume 8.6 Prothrombin Time 14.6 Prothromb Time International Ratio 1.3 Activated Partial Thromboplast Time 34.3 Blood Urea Nitrogen 24 Creatinine 1.92 Random Glucose 231 Total Protein 4.2 Calcium Level 7.2 Sodium Level 141 Potassium Level 4.4 Chloride Level 109 Carbon Dioxide Level 17.5 Anion Gap 15 Estimat Glomerular Filtration Rate 36 Lactic Acid Level 6.9 Protein Corrected Calcium 8.9 Albumin 1.8 Test 02/27/17 23:55 02/28/17 00:15 02/28/17 00:34 02/28/17 02:34 Lactic Acid Level 3.0 White Blood Count 15.5 Red Blood Count 2.24 Hemoglobin 6.5 Hematocrit 19.4 Mean Corpuscular Volume 86.6 Mean Corpuscular Hemoglobin 29.2 Mean Corpuscular Hemoglobin Concent 33.7 Red Cell Distribution Width 14.6 Platelet Count 93 Mean Platelet Volume 8.0 Neutrophils (%) (Auto) 85.7 Lymphocytes (%) (Auto) 8.2 Monocytes (%) (Auto) 6.0 Eosinophils (%) (Auto) 0.0 Basophils (%) (Auto) 0.1 Neutrophils # (Auto) 13.3 Lymphocytes # (Auto) 1.3 Monocytes # (Auto) 0.9 Eosinophils # (Auto) 0.0 Basophils # (Auto) 0.0 CBC Comment AUTO DIFF Differential Total Cells Counted 100 Neutrophils % (Manual) 77 Band Neutrophils % 5 Lymphocytes % 10 Monocytes % 3 Neutrophils # (Manual) 13.5 Myelocytes 3 Promyelocytes 2 Differential Comment FINAL DIFF MANUAL Platelet Estimate LOW Platelet Morphology Comment NORMAL Basophilic Stippling FAINT Prothrombin Time 12.1 Prothromb Time International Ratio 1.1 Activated Partial Thromboplast Time 29.8 Fibrinogen 286 Blood Gas Puncture Site ART LINE ART LINE Blood Gas Patient Temperature 98.6 98.6 Blood Gas HCO3 21 21 Blood Gas Base Excess -1.9 -1.9 Blood Gas Oxygen Saturation 95 94 Arterial Blood pH 7.46 7.49 Arterial Blood Partial Pressure CO2 30 28 Arterial Blood Partial Pressure O2 80 77 Arterial Blood Oxygen Content 9.1 12.3 Arterial Blood Carboxyhemoglobin 1.7 2.3 Arterial Blood Methemoglobin 1.1 1.1 Blood Gas Hemoglobin 6.8 9.2 Oxygen Delivery Device NASAL CANNULA NASAL CANNULA Blood Gas Liter Flow 2 2 Test 02/28/17 06:01 02/28/17 08:15 02/28/17 12:00 02/28/17 15:40 Blood Gas Puncture Site ART LINE ART LINE Blood Gas Patient Temperature 98.6 98.6 Blood Gas HCO3 20 19 Blood Gas Base Excess -5.3 -3.6 Blood Gas Oxygen Saturation 97 97 Arterial Blood pH 7.28 7.49 Arterial Blood Partial Pressure CO2 45 26 Arterial Blood Partial Pressure O2 369 153 Arterial Blood Oxygen Content 15.4 10.4 Arterial Blood Carboxyhemoglobin 1.5 1.4 Arterial Blood Methemoglobin 1.2 1.2 Blood Gas Hemoglobin 10.6 7.4 Oxygen Delivery Device VENTILATOR VENTILATOR Blood Gas Ventilator Setting PRVC/AC PRVC/AC Blood Gas Inspired Oxygen 100 45 White Blood Count 17.7 Red Blood Count 3.91 Hemoglobin 11.5 10.1 Hematocrit 34.0 29.3 Mean Corpuscular Volume 86.9 Mean Corpuscular Hemoglobin 29.4 Mean Corpuscular Hemoglobin Concent 33.8 Red Cell Distribution Width 14.7 Platelet Count 137 Mean Platelet Volume 8.6 Neutrophils (%) (Auto) 90.2 Lymphocytes (%) (Auto) 5.5 Monocytes (%) (Auto) 4.2 Eosinophils (%) (Auto) 0.1 Basophils (%) (Auto) 0.0 Neutrophils # (Auto) 15.9 Lymphocytes # (Auto) 1.0 Monocytes # (Auto) 0.7 Eosinophils # (Auto) 0.0 Basophils # (Auto) 0.0 CBC Comment AUTO DIFF Differential Total Cells Counted 100 Neutrophils % (Manual) 78 Band Neutrophils % 8 Lymphocytes % 4 Monocytes % 5 Neutrophils # (Manual) 16.1 Metamyelocytes 3 Myelocytes 2 Nucleated Red Blood Cells 1 Differential Comment FINAL DIFF MANUAL Platelet Estimate LOW Platelet Morphology Comment NORMAL Red Cell Morphology Comment NORMAL Prothrombin Time 11.9 Prothromb Time International Ratio 1.1 Activated Partial Thromboplast Time 24.9 Fibrinogen 330 Blood Urea Nitrogen 22 Creatinine 1.88 Random Glucose 234 Total Protein 5.4 Albumin 2.6 Calcium Level 10.1 Phosphorus Level 6.1 Magnesium Level 2.1 Alkaline Phosphatase 81 Aspartate Amino Transf (AST/SGOT) 72 Alanine Aminotransferase (ALT/SGPT) 24 Total Bilirubin 0.9 Sodium Level 142 Potassium Level 3.8 Chloride Level 109 Carbon Dioxide Level 20.9 Anion Gap 12 Estimat Glomerular Filtration Rate 37 Lactic Acid Level 2.7 2.2 Ammonia 23 Amylase Level 123 Lipase 1222 Date/Time Source Procedure Growth Status 02/27/17 03:48 Blood Peripheral Aerobic Blood Culture - Preliminary NO GROWTH IN 1 DAY Resulted 02/27/17 03:48 Blood Peripheral Anaerobic Blood Culture - Preliminary NO GROWTH IN 1 DAY Resulted 02/01/17 09:55 Cerebral Spinal Fluid Lumbar Puncture Fungal Smear - Final NO FUNGAL ELEMENTS SEEN. Resulted 02/01/17 09:55 Cerebral Spinal Fluid Lumbar Puncture Fungal Culture - Preliminary NO GROWTH IN 3 WEEKS Resulted 02/17/17 05:55 Stool Stool Stool Occult Blood (GREGORY) - Final HEMOCCULT POSITIVE Complete 02/20/17 12:55 Sputum Endotracheal Gram Stain - Final Complete 02/20/17 12:55 Sputum Endotracheal Sputum Culture - Final HEAVY GROWTH NORMAL RESPIRATORY EARL Complete 02/27/17 08:32 Urine Catheterized Urine Urine Culture - Preliminary Gram Negative Holger Resulted 02/11/17 09:10 Abscess Arm Acid Fast Stain - Final NO ACID FAST BACILLI SEEN Resulted 02/11/17 09:10 Abscess Arm Mycobacterial Culture - Preliminary NO GROWTH IN 2 WEEKS Resulted Imaging Last Impressions Chest X-Ray 02/28/17 0000 Signed Impressions: Service Date/Time: Tuesday, February 28, 2017 05:37 - CONCLUSION: Satisfactory support line and tube positioning. Slight worsening aeration. Angelo Castelan MD Aortography 02/28/17 0000 Signed Impressions: Service Date/Time: Tuesday, February 28, 2017 08:01 - CONCLUSION: 1. Active hemorrhage from distal right lateral sacral and iliolumbar branches successfully coil and Gelfoam embolized, as above. Juan Bhakta MD Abdomen/Pelvis CT 02/28/17 0000 Signed Impressions: Service Date/Time: Tuesday, February 28, 2017 06:51 - CONCLUSION: 1. The right retroperitoneal hematoma has increased in size, as above. There are 2 serpiginous arterially enhancing structures visualized, one in the right psoas muscle and another extending into the hematoma at the right iliac fossa. These could represent sites of continued active bleeding. 2. Stable moderate size left and small right pleural effusion with associated compressive atelectasis. 3. Stable small volume of free fluid in the abdomen and pelvis. There is also anasarca. The findings concerning the retroperitoneal hematoma were discussed with Dr. Aguiar via telephone at approximately 7: 10 AM on 02/28/2017. Angelo Allen MD Chest CT 02/27/17 0000 Signed Impressions: Service Date/Time: Monday, February 27, 2017 18:12 - CONCLUSION: 1. Bilateral pleural effusions with bibasilar atelectasis, left greater than right. Tom Sanchez MD Abdomen X-Ray 02/26/17 0000 Signed Impressions: Service Date/Time: Sunday, February 26, 2017 14:52 - CONCLUSION: 1. Nonobstructive bowel gas pattern. Juan Bhakta MD Upper Extremity Ultrasound 02/10/17 Signed Impressions: Service Date/Time: Friday, February 10, 2017 18:46 - CONCLUSION: Occlusive thrombus in the cephalic and basilic veins. Benjamin Person MD Lung Scan-V Nuclear Medicine 02/10/17 Signed Impressions: Service Date/Time: Friday, February 10, 2017 22:17 - CONCLUSION: Low probability pulmonary embolism. Candido Patton MD Head CT 02/10/17 Signed Impressions: Service Date/Time: Friday, February 10, 2017 23:51 - CONCLUSION: Negative noncontrast CT brain. Candido Patton MD Wrist X-Ray 02/06/17 Signed Impressions: Service Date/Time: Monday, February 06, 2017 12:50 - CONCLUSION: Minimally displaced distal radius and ulnar fractures. Armando Dodd MD Lumbar Puncture Fluoroscopy 02/01/17 Signed Impressions: Service Date/Time: January 09:35 - CONCLUSION: Uncomplicated fluoroscopically guided lumbar puncture. CSF was clear. Nabeel Prealta MD Head Magnetic Resonance Angiography 01/27/17 Signed Impressions: Service Date/Time: Friday, January 27, 2017 10:33 - CONCLUSION: No intracranial vascular abnormality is identified. There is no aneurysm visualized. Angelo Allen MD IVC Filter Placement X-Ray 01/25/17 Signed Impressions: Service Date/Time: January 10:29 - CONCLUSION: Uncomplicated inferior vena cava filter placement as above. Yung Fowler MD Thoracic Spine MRI 01/24/17 Signed Impressions: Service Date/Time: Tuesday, January 24, 2017 22:29 - CONCLUSION: 1. Mild degenerative spondylosis most prominently at T11-L1 with slight effacement of the anterior thecal sac and left lateral recess. No significant neural foraminal stenosis. 2. No acute fracture. Juan Bhakta MD Renal Ultrasound 01/23/17 Signed Impressions: Service Date/Time: Monday, January 23, 2017 08:53 - CONCLUSION: 1. Evidence of chronic parenchymal disease of both kidneys. No obstructive uropathy or other acute abnormality demonstrated. 2. Trace ascites, nonspecific. Angelo Garrido MD Lumbar Spine MRI 01/23/17 Signed Impressions: Service Date/Time: Monday, January 23, 2017 17:01 - CONCLUSION: 1. At L4-5 is a broad-based disc protrusion with severe central canal and lateral recess stenosis and flattening of the exiting right L4 nerve root. 2. L5-S1 there is a disc protrusion and moderate stenosis with flattening of the exiting L5 nerve roots bilaterally. 3. At L3-4 there is a moderate to severe central stenosis and lateral recess stenosis with mild foraminal stenosis. 4. No acute fracture or spondylolisthesis. Trace Holloway MD Lower Extremity Ultrasound 01/23/17 Signed Impressions: Service Date/Time: Monday, January 23, 2017 09:53 - CONCLUSION: Bilateral focal lower extremity DVT involving the posterior tibial veins. Angelo Garrido MD Cervical Spine MRI 01/23/17 Signed Impressions: Service Date/Time: Monday, January 23, 2017 17:01 - CONCLUSION: 1. Multilevel cervical spine degenerative changes as above. 2. Mild degrees of spinal stenosis at C3/C4-C6/C7. No cord compression or cord signal abnormality. 3. Age indeterminate left paracentral/foraminal disc protrusion at C6/C7. 4. Multilevel foraminal stenosis, most severe on the left at C6/C7. Please see individual levels above. 5. No fracture or subluxation of the cervical spine. Angelo Garrido MD Brain MRI 01/23/17 Signed Impressions: Service Date/Time: Monday, January 23, 2017 17:01 - CONCLUSION: 1. No acute stroke or other acute intracranial abnormality demonstrated. 2. Moderate severity chronic white matter changes, nonspecific but most likely related to chronic small vessel disease. 3. Few scattered tiny lacunar infarcts of the brainstem. 4. Given the findings are not entirely specific, clinical evaluation for possible multiple sclerosis recommended. Angelo Garrido MD Knee X-Ray [id number]/22/[id number] Signed Impressions: Service Date/Time: Sunday, January 22, 2017 21:17 - CONCLUSION: 1. Evidence of moderate to large joint effusion. 2. No acute fracture or malalignment. 3. Mild 3 compartment osteoarthritic change. Benjamin Person MD Hip and Pelvis X-Ray [id number]/22/[id number] Signed Impressions: Service Date/Time: Sunday, January 22, 2017 21:10 - CONCLUSION: 1. Mild to moderate degenerative change of both hips with no acute fracture or malalignment. There is flattening and remodeling of the right humeral head. Benjamin Person MD Physical Exam HEENT: Normocephalic; atraumatic; no jaundice. CHEST: Resp even/unlabored, OETT to vent. CT on right- sanguinous drainage CARDIAC: RRR, on vasopressin (Levophed/Epi on standby per nurse) ABDOMEN: Soft, distended, mild diffuse tenderness, no hepatosplenomegaly; bowel sounds are present in all four quadrants. (+) loose stool x 1 EXTREMITIES: Generalized edema. 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 Hemoccult positive stools. Never had EGD/ Colonoscopy. Has bilateral DVTs. S/P EGD/Colonoscopy (02/22/17)----> 1. Gastritis antrum-biopsy esophagitis distal esophagus-biopsy duodenum normal-biopsy 2. Retroflexed views revealed a hiatal hernia 1. Diverticulosis sigmoid , descending polyp hepatic flexure-two--6 mm sessile-cold snare polypectomy with complete removal another 5 mm-cold biopsy with complete removal polyp sessile descending colon-7 mm-cold snare polypectomy with removal sigmoid-6 mm-cold snare polypectomy with complete removal random biopsies from descending colon- 2. Retroflexed views revealed internal hemorrhoids 3. Retroflexed views revealed small internal hemorrhoids 4. Revealed external hemorrhoids. Pathology distal esophagus with severe acute ulcerative esophagitis, grocott methenamine silver stain is positive for few fungal spores suggestive of bowen at base of ulcer, negative for intestinal metaplasia, dysplasia, or malignancy, stomach antrum mucosal congestion, duodenal mucosa without significant histopathologic abnormality, hepatic flexure adenomatous polyp, descending polyp fecal material, no viable tissue present, sigmoid polyp hyperplastic polyp, descending colonic mucosa without significant histopathologic abnormality. Pt had significant drop in H/H on 02/27 from 7.9/24.3---> 5.8/ 18.2 with no obvious blood loss. Haptoglobin 146. LDH 199. LFT unremarkable. He was not having any obvious blood loss. He was transfused, but HH dropped again to 6.5/19.[address] abdomen and pelvis (02/27/17)---> There has been interval development of a very large right sided retroperitoneal hematomas in the mid to lower right abdomen with extension into the right pelvis. There is a hematoma just posterior to the right kidney measuring 9.4 x 7.5 cm. there is a larger retroperitoneal hematoma measuring 16.7 x 12.0 cm just above the right psoas muscle in the mid to lower right abdomen, there is some fluid around the liver and spleen. There continues to be bilateral pleural effusions with bibasilar atelectasis, there are nonobstructing stones in nemesio right kidney. CTA abdomen/pelvis (02/28/17)---> The right retroperitoneal hematoma has increased in size as above. There are 2 serpiginous arterially enhancing structures visualized, one in the right psoas muscle and another extending into the hematoma at the right iliac fossa. These could represent sites of continued active bleeding. Stable moderate size left and small right pleural effusion with associated compressive atelectasis. Stable small volume of free fluid in the abdomen and pelvis. There is also anasarca. S/P Embolization by IR---> active bleeding from small likely inferior and superior sacral branches of the right internal iliac artery. Coil embolized. No additional bleeding branches identified. S/P 13 units PRBC, 10 units FFP, 2 platelets, 1 cryo. Clinically better, Levophed and Epinephrine on hold. Still on vasopressin. HH 10.1/29.3. - Retroperitoneal bleed. S/P CT, CTA as above. S/P Embolization by IR---> active bleeding from small likely inferior and superior sacral branches of the right internal iliac artery. Coil embolized. No additional bleeding branches identified. HH stable. - Bowen esophagitis. Diflucan. PPI - Abdominal pain. CT abdomen and pelvis without iv contrast (02/19/17)---> areas of calcification seen in the right renal collecting system, right renal pelvis, adn proximal ureter. these appear to layer and be dependent suggesting likely to represent smaller areas of milk of calcium or small stones. There is mild dilatation of th eright renal collecting system and right ureter. A definite obstructing stone at this time is not seen. A small amount of air within the urinary bladder. This should be correlated with any recent catheterization. Mild bilateral pleural effusions with accompanying atelectasis or consolidation at the left base. the consolidation was present previously. Prominent degenerative change in the lumbar spine and at the hip joints bilaterally. Improved, although lightly sedated. EGD/Colonoscopy as above. - Diarrhea. On abx. CDiff negative S/P EGD/Colonoscopy, pathology as above. IMPROVED. One loose stool per day.Solucortef, lactinex. - Respiratory Insufficiency/Hypoxia/PTX right. S/P reintubation, CT placement. Vent per [facility] - DVT LE, bilateral. Lovenox on hold secondary to bleeidng. - Transverse myelitis, per attending. Vanco, sophian, per ID - LUE Abscess. S/P I&D with excision of left cephalic vein segment. Wound vac. - ARF, Per renal. - HTN, DM, per attending. PLAN: - PITO - PPI - Diflucan - Monitor HH - Transfuse as necessary - Supportive care - Notify GI of active bleeding - Further recommendations to follow based on clinical status - Patient seen and examined by Dr. Durant and myself and this note is written on his behalf. (Nena Driver) Physician Comments Seen and examined with MURPHY, Retroperitoneal bleed s/p embolization by IR. Diarrhea improved. No gi bleeding. Will sign off, reconsult as needed. Thankyou (Johnathon Durant MD) Nena Driver Feb 28, 2017 16:18 Johnathon Durant MD Feb 28, 2017 16:58
[2017-02-28 16:33] LABS: APTT (PATIENT) 32.3 SEC (24.3-30.1); INTERNATIONAL NORMALIZED RATIO 1.1 RATIO; PROTHROMBIN TIME - PATIENT 12.7 SEC (9.8-11.6)
[2017-02-28 16:39] LABS: BICARBONATE 20.1 MEQ/L (21.0-32.0); MAGNESIUM 1.9 MG/DL (1.5-2.5); POTASSIUM 3.5 MEQ/L (3.5-5.1)
[2017-02-28] MEDS: MIDAZOLAM 100 MG/100 ML INJ 100 ML IV PRN (18:18)
[2017-02-28] MEDS: NOREPINEPHRINE INJ 4 MG in SODIUM CHLOR 0.9% 250 ML INJ 246 ML IV PRN (20:00)
[2017-02-28 20:22] LABS: BLOOD GAS BASE EXCESS -4.3 mmol/L (-2-2); BLOOD GAS CARBOXYHEMOGLOBIN 1.3 % (0-4); BLOOD GAS HCO3 19 mmol/L (22-26); BLOOD GAS O2 HGB SATURATION 97 % (90-100); BLOOD GAS OXYGEN CONTENT 12.7 Vol % (12.0-20.0); BLOOD GAS PCO2 30 mmHg (38-42); BLOOD GAS PO2 129 mmHg (61-120); BLOOD GAS TOTAL HGB 9.1 G/DL (12.0-16.0); CRITICAL VALUE NO; TEMP CORR TO 98.6
[2017-02-28 20:23] LABS: DRAW SITE ALINE; FIO2 40 %; OXYGEN DEVICE VENTILATOR
[2017-02-28 20:24] LABS: STAT YES
[2017-02-28 21:08] LABS: HEMATOCRIT 27.7 % (39.0-51.0); MEAN CELL VOLUME 86.1 FL (80.0-100.0); MEAN CORPUSCULAR HEMOGLOBIN 29.6 PG (27.0-34.0); MEAN CORPUSCULAR HGB CONC 34.4 % (32.0-36.0); RED BLOOD COUNT 3.21 MIL/MM3 (4.50-5.90); RED CELL DISTRIBUTION WIDTH 14.9 % (11.6-17.2); WHITE BLOOD COUNT 12.3 TH/MM3 (4.0-11.0)
[2017-02-28 21:27] LABS: APTT (PATIENT) 33.1 SEC (24.3-30.1); INTERNATIONAL NORMALIZED RATIO 1.1 RATIO; PROTHROMBIN TIME - PATIENT 12.3 SEC (9.8-11.6)
[2017-02-28 21:46] LABS: PLATELET COUNT 72 TH/MM3 (150-450); REVIEW FLAG FINAL
[2017-02-28] MEDS: fentaNYL DRIP 250 ML IV PRN (22:41)
[2017-03-01] VITALS (23 sets, daily range): BP systolic 95–150; BP diastolic 56–86; PULSE 74–115; RESP 16; TEMP 94.4–99.9; O2SAT 96–100
[2017-03-01] MEDS: PIPERACIL-TAZO 3.375 GM PREMIX 50 ML IV SCH ×3 (00:36→11:05)
[2017-03-01] MEDS: RESP: ALBUTEROL 2.5 MG/IPRATROPIUM 0.5 MG NEB (SCH) NEB ×4 (01:04→20:26)
[2017-03-01 01:32] LABS: BLOOD GAS BASE EXCESS -4.9 mmol/L (-2-2); BLOOD GAS CARBOXYHEMOGLOBIN 1.3 % (0-4); BLOOD GAS HCO3 19 mmol/L (22-26); BLOOD GAS METHEMOGLOBIN 1.1 % (0-2); BLOOD GAS O2 HGB SATURATION 96 % (90-100); BLOOD GAS OXYGEN CONTENT 13.7 Vol % (12.0-20.0); BLOOD GAS PCO2 31 mmHg (38-42); BLOOD GAS PO2 95 mmHg (61-120); BLOOD GAS TOTAL HGB 10.1 G/DL (12.0-16.0); CRITICAL VALUE NO; DRAW SITE ALINE; FIO2 40 %; OXYGEN DEVICE VENTILATOR; STAT YES; TEMP CORR TO 98.6
[2017-03-01] MEDS ORDERED: ALBUMIN 25% INJ 100 ML IV ONE (02:15)
[2017-03-01] MEDS: CISATRACURIUM INJ 100 MG in SODIUM CHLOR 0.9% 250 ML INJ 250 ML IV PRN ×4 (03:04→21:00)
[2017-03-01] MEDS: INSULIN NovoLIN REGULAR SUPPLEMENTAL SCALE SQ SCH ×6 (04:00→20:00)
[2017-03-01 04:13] LABS: HEMATOCRIT 27.7 % (39.0-51.0)
[2017-03-01 04:30] LABS: REVIEW FLAG FINAL
[2017-03-01 05:23] LABS: BLOOD GAS BASE EXCESS -5.6 mmol/L (-2-2); BLOOD GAS CARBOXYHEMOGLOBIN 1.2 % (0-4); BLOOD GAS HCO3 18 mmol/L (22-26); BLOOD GAS METHEMOGLOBIN 1.1 % (0-2); BLOOD GAS O2 HGB SATURATION 97 % (90-100); BLOOD GAS OXYGEN CONTENT 13.1 Vol % (12.0-20.0); BLOOD GAS PCO2 30 mmHg (38-42); BLOOD GAS PO2 119 mmHg (61-120); BLOOD GAS TOTAL HGB 9.5 G/DL (12.0-16.0); TEMP CORR TO 98.6
[2017-03-01 05:24] LABS: CRITICAL VALUE NO; DRAW SITE ALINE; FIO2 40 %; OXYGEN DEVICE VENTILATOR; STAT NO
[2017-03-01] MEDS: METOCLOPRAMIDE HCL 10 MG/2 ML VIAL IV PUSH SCH ×3 (05:31→20:55)
[2017-03-01] MEDS: HYDROCORTISONE SOD SUCCINATE 100 MG VIAL IV SCH ×3 (05:31→20:55)
[2017-03-01 05:55] LABS: BASOPHIL % 0.1 % (0.0-2.0); HEMATOCRIT 27.6 % (39.0-51.0); LYMPH % 2.6 % (9.0-44.0); LYMPHOCYTE # 0.4 TH/MM3 (1.0-4.8); MEAN CELL VOLUME 86.6 FL (80.0-100.0); MEAN CORPUSCULAR HEMOGLOBIN 29.7 PG (27.0-34.0); MEAN CORPUSCULAR HGB CONC 34.3 % (32.0-36.0); MONO % 4.6 % (0.0-8.0); NEUT % 92.7 % (16.0-70.0); PLATELET COUNT 74 TH/MM3 (150-450); RED BLOOD COUNT 3.18 MIL/MM3 (4.50-5.90); WHITE BLOOD COUNT 16.1 TH/MM3 (4.0-11.0)
[2017-03-01 06:00] LABS: HEMO FLAGS AUTO DIFF
[2017-03-01 06:03] LABS: APTT (PATIENT) 35.4 SEC (24.3-30.1); INTERNATIONAL NORMALIZED RATIO 1.2 RATIO; PROTHROMBIN TIME - PATIENT 12.8 SEC (9.8-11.6)
[2017-03-01 06:22] LABS: BICARBONATE 18.9 MEQ/L (21.0-32.0); CALCIUM-PROTEIN CORRECTED 8.5 MG/DL (8.5-10.1); MAGNESIUM 1.8 MG/DL (1.5-2.5); POTASSIUM 3.6 MEQ/L (3.5-5.1); TOTAL BILIRUBIN ADULT 0.3 MG/DL (0.2-1.0)
[2017-03-01] MEDS: ARTIFICIAL TEARS OPTH SOLN 15 ML BTL EACH EYE SCH ×3 (06:48→21:43)
[2017-03-01 07:28] LABS: BANDS 4 % (0-6); METAMYELOCYTES 1 % (0-1); MYELOCYTES 2 % (0-0); NEUTROPHIL # MANUAL DIFF 15.3 TH/MM3 (1.8-7.7); PLATELET ESTIMATE SMEAR LOW (NORMAL); PLATELET MORPHOLOGY NORMAL (NORMAL); POLYS (SEG NEUTROPHILS) 88 % (16-70); SCAN/DIFF FINAL DIFF MANUAL; WBC DIFF SAMPLE 100
[2017-03-01] MEDS: MIDAZOLAM 100 MG/100 ML INJ 100 ML IV PRN ×2 (07:34→22:10)
[2017-03-01] MEDS: FLUCONAZOLE 400 MG PREMIX BAG 200 ML IV SCH (07:35)
[2017-03-01] MEDS: CHLORHEXIDINE 0.12% (ORAL KIT) 15 ML CUP MT SCH ×2 (08:00→20:59)
--- NOTE | 2017-03-01 08:57 | HHI.CCPN ---
Subjective Remarks/Hospital Course Date of admission: 01/22 Date of critical care medicine consult 02/10 due to acute hypoxemic respiratory failure requiring emergent intubation 62-year-old male with a past medical history of hypertension, hyperlipidemia, diabetes mellitus, gout, uric acid kidney stones, kidney disease of unknown stage who originally presented to [facility] emergency department on 01/22 after a fall in which he sustained a right distal ulna fracture. He had been experiencing a gradual primarily lower extremity weakness as well as upper extremity weakness that was progressive. Neurology consult was obtained. MRI revealed no acute stroke. He had multifocal white matter changes. Tiny lacunar infarcts of the brainstem. Lumbar MRI report states L4-L5 disc protrusion with cetnral canal stenosis. Dr. Blackwell evaluated and states no cord compression on MRI C/T spine and recommended nonoperative management. Symptoms were felt to be consistent with transverse myelitis and he underwent Solumedrol 250 mg IV q6 hours 01/27-02/02. He also was found to have occlusive thrombus in the bilateral posterior tibial veins. Heparin was being avoided because he had traumatic lumbar puncture on 01/26 and 02/01. IVC filter was placed 01/25. He was undergoing physical therapy, reportedly making some improvements with plan to eventually discharged home with his son (max assist standing, and bed to chair per PT note). Apparently he had some vomiting the evening of 02/09 and additional vomiting on 02/10. He had a fever 102.8 on 02/09. Last recorded bowel movement was 02/03. Tonight he had acute onset of severe hypoxemia and respiratory distress. [facility] called and he was brought emergently to [facility] where his sats were 64% on 100% nonrebreather with mean arterial pressure 44. He was emergently intubated, CVL and art line placed. He is in septic shock. SUBJ: 02/11: Patient remains intubated sedated, critically ill. FiO2 reduced to 80% after increasing PEEP to 12. In severe septic shock Levophed at 16 mcg/m, vasopressin at 0.04 international units. D/W vascular surgery Dr. Enciso. He performed bedside Left upper extremity incision and debridement and excision of septic cephalic vein. 02/12: Remains intubated sedated profoundly septic, in shock on vasopressin and 7 mcg/min Levophed. FiO2 has improved to 45%, WBC count remains elevated with 20 ,000 white count significant left shift. Slight improvement in creatinine 2.9 urine output 750 ml 24 hours. 2-D echo shows LV ejection fraction 20-25%, no vegetation reported. Blood cultures 4 staph aureus. Wound culture pending 02/13: Remains critically ill but stable to improving. WBC count is down to 16, creatinine improving to 2.36. Off all pressors. Urine output also improving. 1.5L in 24 hours 02/14: Extubated 02/13. Tolerating well. WBC now down to 12.8. Creat improving 2.3 to 2. UO 3.4L. remains off all pressors. Was started on Precedex yesterday night for agitation, currently on 0.5 g per KG per hour. Chest x-ray shows left more than right air space disease 02/20/17 Re consult: 62-year-old male who was originally admitted for lower extremity weakness and found to have what was thought to be possible transverse myelitis. His hospital course his included a healthcare associated pneumonia, septic thrombophlebitis, DVT. He was most recently in the hospital floor where he had significant nausea and vomiting and diarrhea. His C. difficile test was recently negative. However, he has experienced worsening acute on chronic renal failure, hypotension, tachycardia, and severe hypoxemia. He did have a bout of vomiting earlier today, and his hospitalist attending suspects that he may have aspirated. He arrives by rapid response to the ICU with a nonrebreather in place in severe respiratory distress with SPO2 of 85%. I emergently intubate the patient, see separate procedure note for details. At this point the patient was hypotensive and tachycardic. He does have a history of an EF of 20%, however clinically he appears in florid septic shock. I placed central line and arterial line started vasopressors and gentle IV fluid resuscitation with 1 L of LR. Patient today was empirically broadened to vancomycin and Zosyn from his oxacillin which was initially treating MSSA bacteremia. He is recultured. Critical-care medicine is consulted to evaluate and manage his worsening multiorgan system failure and decompensated septic shock 02/21: Patient remains intubated sedated. Becomes anxious tachypnea on sedation lightening. Chest x-ray shows mild left lower lobe infiltrate. WBC count is slightly improved today from 23.2 t0 21. C Diff negative. UO adequate, creat slightly worsening. 1.57 today 02/22: Remains intubated sedated tolerated CPAP yesterday, plan is for EGD/ Colonscopy. WBC count back to normal. UO adequate. Creat stable 02/23: Tolerating CPAP trials following commands. Will do a spontaneous breathing trials. Status post EGD colonoscopy yesterday -Gastritis, esophagitis. Diverticulosis and multiple polyps. Urine output adequate but creatinine increasing to 1.7 with patient requiring multiple straight catheterization. We'll reinsert Sloan. 02/24: Breathing comfortably 24 hours after extubation. Protects airway well. 02/25: Excoriate bottom, will place rectal FMS. Start pureed diet. 02/26: Afebrile. Complaining of nausea and vomiting this afternoon. Increased stool output. Continue potassium replacement today. 02/27: 10 PM overnight, acutely hypotensive. Received 3 units PRBCs. Antibiotic coverage broadened to piperacillin/tazobactam, cortisol and 1 dose of vancomycin. Oxacillin drip currently on hold. Symptomatically, patient continues to vague abdominal pain/nausea vomiting which is unchanged for the past several days. Lipase elevated yesterday. Lactic acid normal. Troponin normal. Urinary retention after removal of Sloan. Straight catheter 1300. Cc 02/28: New diagnosis large retroperitoneal hematoma. Received 10 PRBC, 14 FFP, 2 platelets, 1 cryo-, 6 g calcium chloride, 2 is magnesium sulfate and 4 mg Bumex. CTA abdomen revealed possible arterial bleeds iliac, lumbar. Patient is currently on norepinephrine and epinephrine drips and possible need right nephrostomy tube placement due to large hematoma compressing ureter. Intra-abdominal bladder pressures are currently 13 Subjective 03/01: Afebrile. Received 25 g albumin and 1 unit PRBCs overnight. Intra- abdominal bladder pressures currently 19. Currently on 3 Benjamin grams per minute of norepinephrine. [id number]-[id number] 1 out of 4 on 4 mics grams per kilogram per minute of cisatracurium. Objective Vital Signs Date Time Temp Pulse Resp B/P (MAP) Pulse Ox O2 Delivery O2 Flow Rate FiO2 03/01/17 08:00 89 03/01/17 08:00 98.7 16 126/73 (90) 98 03/01/17 08:00 40 03/01/17 07:00 Mechanical Ventilator 02/28/17 07:00 2.00 Intake and Output 03/01/17 03/01/17 03/02/17 08:00 16:00 00:00 Intake Total 854 ml Output Total 310 ml Balance 544 ml Result Diagram: 03/01/17 0540 03/01/17 0540 Other Results Microbiology Date/Time Source Procedure Growth Status 02/27/17 03:48 Blood Peripheral Aerobic Blood Culture - Preliminary NO GROWTH IN 1 DAY Resulted 02/27/17 03:48 Blood Peripheral Anaerobic Blood Culture - Preliminary NO GROWTH IN 1 DAY Resulted 02/01/17 09:55 Cerebral Spinal Fluid Lumbar Puncture Fungal Smear - Final NO FUNGAL ELEMENTS SEEN. Resulted 02/01/17 09:55 Cerebral Spinal Fluid Lumbar Puncture Fungal Culture - Preliminary NO GROWTH IN 3 WEEKS Resulted 02/17/17 05:55 Stool Stool Stool Occult Blood (GREGORY) - Final HEMOCCULT POSITIVE Complete 02/20/17 12:55 Sputum Endotracheal Gram Stain - Final Complete 02/20/17 12:55 Sputum Endotracheal Sputum Culture - Final HEAVY GROWTH NORMAL RESPIRATORY EARL Complete 02/27/17 08:32 Urine Catheterized Urine Urine Culture - Preliminary Gram Negative Holger Resulted 02/11/17 09:10 Abscess Arm Acid Fast Stain - Final NO ACID FAST BACILLI SEEN Resulted 02/11/17 09:10 Abscess Arm Mycobacterial Culture - Preliminary NO GROWTH IN 2 WEEKS Resulted Imaging Last 72 hours Impressions Chest X-Ray 02/28/17 0000 Signed Impressions: Service Date/Time: Tuesday, February 28, 2017 05:37 - CONCLUSION: Satisfactory support line and tube positioning. Slight worsening aeration. Angelo Castelan MD Aortography 02/28/17 0000 Signed Impressions: Service Date/Time: Tuesday, February 28, 2017 08:01 - CONCLUSION: 1. Active hemorrhage from distal right lateral sacral and iliolumbar branches successfully coil and Gelfoam embolized, as above. Juan Bhakta MD Abdomen/Pelvis CT 02/28/17 0000 Signed Impressions: Service Date/Time: Tuesday, February 28, 2017 06:51 - CONCLUSION: 1. The right retroperitoneal hematoma has increased in size, as above. There are 2 serpiginous arterially enhancing structures visualized, one in the right psoas muscle and another extending into the hematoma at the right iliac fossa. These could represent sites of continued active bleeding. 2. Stable moderate size left and small right pleural effusion with associated compressive atelectasis. 3. Stable small volume of free fluid in the abdomen and pelvis. There is also anasarca. The findings concerning the retroperitoneal hematoma were discussed with Dr. Aguiar via telephone at approximately 7: 10 AM on 02/28/2017. Angelo Allen MD Chest X-Ray 02/27/17 0000 Signed Impressions: Service Date/Time: Monday, February 27, 2017 17:33 - CONCLUSION: Stable mild left lower lung infiltrate. Tom Sanchez MD Chest CT 02/27/17 0000 Signed Impressions: Service Date/Time: Monday, February 27, 2017 18:12 - CONCLUSION: 1. Bilateral pleural effusions with bibasilar atelectasis, left greater than right. Tom Sanchez MD Abdomen/Pelvis CT 02/27/17 0000 Signed Impressions: Service Date/Time: Monday, February 27, 2017 18:12 - CONCLUSION: 1. There has been interval development of a very large right-sided retroperitoneal hematomas in the mid to lower right abdomen with extension into the right pelvis. There is a hematoma just posterior to the right kidney measuring 9.4 x 7.5 cm. There is a larger retroperitoneal hematoma measuring 16.7 x 12.0 cm just above the right psoas muscle in the mid to lower right abdomen. 2. There is some new free fluid around the liver and spleen. 3. There continues to be bilateral pleural effusions with bibasilar atelectasis. 4. There are nonobstructing stones in the right kidney. Tom Sanchez MD Objective Remarks GENERAL: 62-year-old male, critically ill currently orotracheally intubated HEENT: Normocephalic. Atraumatic. Pupils equal, round, reactive, conjugate by 3 mm bilaterally. NECK: Trachea is midline. Obese. No JVD or thyromegaly right IJ Cordis and left subclavian TLC clean dry and intact CHEST: Diminished breath sounds. Right-sided chest tube -20 cm H2O. 100 cc serosanguineous CARDIOVASCULAR: Tachycardia, RR. S1, S2 no S4. ABDOMEN: Distended. Firm to palpation. No bowel sounds are appreciated. Umbilical hernia is reducible. MUSCULOSKELETAL: Pulses 2+. Trace to 1+ bilateral upper and lower extremity edema. Wound VAC in left upper extremity NEUROLOGICAL: Currently sedated and paralyzed on cisatracurium drip. Procedures IVC filter placement 01/25/2017 LP 01/26/2017 Urinary Catheter: Yes Assessment to: Continue Sloan insert reason: Prolonged Immobilization Line: Central Venous Catheter Side: Left Location: Subclavian A/P Problem List: (1) Septic shock ICD Code: A41.9 - Sepsis, unspecified organism; R65.21 - Severe sepsis with septic shock Status: Acute (2) Acute respiratory failure ICD Code: J96.00 - Acute respiratory failure, unspecified whether with hypoxia or hypercapnia Status: Acute (3) Thrombophlebitis arm ICD Code: I80.8 - Phlebitis and thrombophlebitis of other sites (4) Aspiration pneumonia ICD Code: J69.0 - Pneumonitis due to inhalation of food and vomit Status: Acute (5) Atelectasis of left lung ICD Code: J98.11 - Atelectasis Status: Acute (6) Quadriparesis ICD Code: G82.50 - Quadriplegia, unspecified Status: Acute (7) DVT (deep venous thrombosis) ICD Code: I82.409 - Acute embolism and thrombosis of unspecified deep veins of unspecified lower extremity (8) Altered mental status ICD Code: R41.82 - Altered mental status, unspecified Status: Acute (9) CKD (chronic kidney disease) stage 3, GFR 30-59 ml/min ICD Code: N18.3 - Chronic kidney disease, stage 3 (moderate) Status: Chronic (10) Acute renal failure ICD Code: N17.9 - Acute kidney failure, unspecified Status: Acute (11) Diabetes mellitus ICD Code: E11.9 - Type 2 diabetes mellitus without complications Status: Chronic (12) Distal end of ulna fracture, closed ICD Code: S52.609A - Unspecified fracture of lower end of unspecified ulna, initial encounter for closed fracture Status: Acute (13) Gout ICD Code: M10.9 - Gout, unspecified Status: Chronic Assessment and Plan NEURO/PSYCH: Acute metabolic encephalopathy Quadriparesis secondary to suspected transverse myelitis Recurrent falls Patient is currently on Midazola drip at 7 mg an hour and propofol drip at 50 mg /kg per minute and cisatracurium at [employer] as per kilogram per minute for sedation/paralysis Goal of RA SS -5 [id number] 1 out of 4 Suspected transverse myelitis. Received methylprednisolone 250 mg IV every 6 hours 01/27-02/02, started back on hydrocortisone 02/21/17, initially tapering to 50 mg IV every 8 hours starting received 1 dose at 2100 prior to becoming hypotensive. Currently back on 100 mg IV every 8 hours LP 01/26 and 02/01. CSF culture negative 01/26, 02/01 Oligoclonal bands negative. CSF/serum IgG index is not elevated. VDRL nonreactive. Cryptococcal antigen negative. Brain MRI 01/23 no acute stroke. Few scattered lacunar infarcts of the brainstem. Moderate chronic white matter changes. MRI cervical/thoracic spine- mild spinal stenosis C3/C4 to C6/C7. No cord compression. RPR negative Neurology has been following, Dr. Crenshaw. Repeat CT brain 02/10 - negative Continue PT/OT RESP: Acute hypoxemic respiratory failure Healthcare associated pneumonia/Aspiration Pneumonia Right-sided chest tube placed for pleural effusion. PRVC 16/550/1.05/25/39 Ventilator bundle Albuterol/ipratropium aerosols every 6 hours with albuterol aerosols every 2 hours. Dyspnea Spontaneous breathing trials not indicated on paralysis VQ scan 02/10 low probability for PE. CT chest 02/10 - left lower lobe collapse and consolidation. CT chest 02/27 revealed right greater than left pleural effusions. Extubated 02/23. 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 -20 cm water. 100 cc serosanguineous output. CV: Severe sepsis Systolic heart failure likely chronic with ejection fraction 20-25% Hyperlipidemia History of hypertension Mild TR Currently on norepinephrine at 3 g per minute to maintain mean arterial pressure greater than or equal to 65 Holding metoprolol and amlodipine in light of current hypotension. Discontinue atorvastatin 10 mg by mouth daily for dyslipidemia. Cardiac index 2.4. SVV 14 Troponin 0.[address]-T changes. Patient denying chest discomfort. 2-D echocardiogram 01/11 revealed EF 20-25%. Per to really reduce left ventricular systolic function. Mild TR. Pulmonary arterial pressures were normal around 20 GI: Large right retroperitoneal hematoma Severe protein energy malnutrition Nausea/vomiting Diarrhea Gastritis Diverticulosis Internal and external hemorrhoids Hiatal hernia Elevated lipase 02/27 CT chest/abdomen and pelvis - 9.4 x 7.5 renal and 16 x 12 cm right psoas muscle hematoma. Fluid around liver and spleen. Right-sided nephrolithiasis CTA abdomen 02/28 - possible blushing around iliac/lumbar vessels Discussed with IR. We'll attempt embolization today due to use severe acute illness. CT abdomen and pelvis 02/10 atrophic left kidney. Bilateral inguinal hernias fat- containing. Nonobstructing 12 mm right kidney stone repeat CT abd/pelvis did not show evidence of obstruction. patient clinically has been having diarrhea (c. diff negative 02/19). also with nausea/vomiting of unclear etiology. EGD/Colonoscopy-02/22/17 showed gastritis esophagitis, hiatal hernia, diverticulosis and multiple polyps in descending colon and sigmoid which were snared biopsied. Biopsy pending Check C. difficile Holding cholestyramine 4 g every 12 hours for diarrhea Dicyclomine 20 mg 3 times a day Measuring intra-abdominal pressures every [address] Lewis consulted for intervention if needed FEN/RENAL: Acute kidney injury in the setting of Chronic kidney disease stage 3-4 History of uric acid kidney stones with prior stent BPH Nonfunctioning left kidney Sloan placed due to urinary retention and worsening creatinine. Monitor intake and output q1hr. Monitor electrolytes. RIOS/SPEP negative. 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 Recommended nephrostomy tube if obstruction Nephrology consult for possible hemodialysis Due to acute illness holding tamsulosin 0.4 mg by mouth daily for BPH ID: Septic shock- Abscess and Suppurative thrombophlebitis left upper extremity MSSA bacteremia Acute aspiration pneumonia/HCAP Broad-spectrum antibiotics with oxacillin 2 g IV every 4 hours till March 26 initially. This is been held in light of current change to regimen to fluconazole, piperacillin/tazobactam and vancomycin overnight due to unclear etiology of hypotension Blood cultures 2, UA no growth to date ID on board. f/u cultures form 02/20/17 blood, sputum, urine cultures-all negative to date HEME: Acute blood loss anemia DVT, bilateral posterior tibial vein, IVC filter Septic thrombophlebitis with occlusive thrombus mid cephalic and basilic vein side Received 10 PRBC, 14 FFP, 2 platelets, 1 cryo-02/28 Past 24 hours received 3 units PRBCs Serial hemoglobins every 6 hours Recheck coags Ultrasound 01/23/17 - Bilateral lower extremity with occlusive posterior tibial vein DVTs. Heparin was initially started for DVT but was placed on hold due to LP with suspected traumatic tap. Currently holding full anticoagulation with enoxaparin 100 mg IV twice a day due to anemia as of 02/26 IVC filter was placed 01/25/17. Ultrasound LUE 02/10 occlusive thrombus mid cephalic vein, basilic vein.s. Transfuse 3 units PRBCs 02/27 ENDO: Diabetes mellitus Hypoglycemia History of prior adrenal insufficiency with shock Gout EGD colonoscopy completed 02/22. gastritis and esophagitis, colon polyps Started Hydrocortisone 100 mg IV q8hr 02/21/17 (Recent high dose steroids use now hypotensive, hypoglycemic) Accu-Cheks to maintain euglycemia Novulin R every 4 hours MSK: Right distal ulna fracture. Dr. Nathan with orthopedics has evaluated and recommended nonoperative management. Right wrist splint in place. PROPH: Pantoprazole 40 mg IV twice a day for stress ulcer prophylaxis. Has IVC filter. Therapeutic enoxaparin currently on hold ACCESS: Left subclavian CVL placed 02/20. Right IJ Cortis placed 02/28. Right radial arterial line placed 02/28 Critical Care: The total critical care time was 35 minutes. Time to perform other separately billable procedures was not included in the critical care time. Problem Qualifiers (1) Aspiration pneumonia: (2) DVT (deep venous thrombosis): Qualified Codes: I82.443 - Acute embolism and thrombosis of tibial vein, bilateral (3) Acute renal failure: Qualified Codes: N17.9 - Acute kidney failure, unspecified (4) Diabetes mellitus: (5) Gout: Janes Aguiar MD Mar 01, 2017 08:57
[2017-03-01] MEDS: LACTOBACILLUS ACIDOPHILUS TAB PO SCH ×3 (09:00→16:47)
[2017-03-01] MEDS: SODIUM CHLORIDE 0.9% FLUSH 10 ML FLUSH IV FLUSH SCH ×2 (09:00→21:42)
[2017-03-01 10:17] LABS: HEMATOCRIT 25.4 % (39.0-51.0)
[2017-03-01 10:22] LABS: REVIEW FLAG FINAL
[2017-03-01] MEDS: PANTOPRAZOLE SODIUM 40 MG VIAL IV PUSH SCH ×2 (10:34→23:52)
--- NOTE | 2017-03-01 10:39 | RADRPT ---
EXAM DATE/TIME: 03/01/2017 09:08 [place] COMPARISON: CHEST SINGLE AP, February 28, 2017, 5:37. 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 LOCATION: chest FINDINGS: Nasogastric tube has been inserted and is in good position. Lungs are hypoaerated. Significant left-sided airspace disease and pleural effusion noted. There is no evidence of pneumothorax. Cardiac silhouette is obscured by left basilar opacity. CONCLUSION: 1. No evidence of pneumothorax. 2. Persistent significant left lung opacity characteristic of pleural effusion and underlying airspac e disease. 3. New nasogastric tube in good position. Lenny Ware MD on March 01, 2017 at 10:36 Board Certified Radiologist. This report was verified electronically.
[2017-03-01] MEDS: BUMETANIDE INJ 100 ML IV SCH (11:00)
[2017-03-01] MEDS ORDERED: SODIUM CHLOR 0.9% 1000 ML INJ 1,000 ML IV PRN (11:19)
[2017-03-01] MEDS ORDERED: SODIUM CHLOR 0.9% 1000 ML INJ 1,000 ML OTHER PRN (11:19)
--- NOTE | 2017-03-01 11:23 | HHI.NPPN ---
Subjective History of Present Illness 61-year-old with history of urinary stone Additional Remarks Patient had retroperitoneal bleed became unstable on vent UOP dropped Review of Systems General Constitutional: Fatigue Objective Data Data Vital Signs Date Time Temp Pulse Resp B/P (MAP) Pulse Ox O2 Delivery O2 Flow Rate FiO2 03/01/17 10:47 100 40 03/01/17 10:00 83 03/01/17 08:00 89 03/01/17 08:00 98.7 87 16 126/73 (90) 98 03/01/17 08:00 40 03/01/17 07:39 98 40 03/01/17 07:00 100 Mechanical Ventilator 40 03/01/17 06:00 87 03/01/17 06:00 87 98/56 03/01/17 04:00 99.9 104 16 98/56 (70) 96 03/01/17 04:00 104 03/01/17 04:00 40 03/01/17 03:17 96 40 03/01/17 02:00 115 03/01/17 01:04 96 40 03/01/17 00:00 40 03/01/17 00:00 92 03/01/17 00:00 94.4 92 16 104/64 (77) 100 02/28/17 22:00 90 02/28/17 21:45 97.8 85 16 94/55 100 02/28/17 21:21 98.2 78 16 91/51 100 02/28/17 21:06 97.6 80 16 100/63 99 02/28/17 20:45 78 118/68 02/28/17 20:26 99 40 02/28/17 20:16 78 98/60 02/28/17 20:00 78 02/28/17 20:00 97.6 78 16 96/60 (72) 100 02/28/17 20:00 78 96/60 02/28/17 20:00 40 02/28/17 19:00 100 Mechanical Ventilator 40 02/28/17 19:00 97.6 78 24 112/70 100 02/28/17 18:46 85 16 109/67 100 02/28/17 18:15 85 16 121/71 (88) 100 02/28/17 18:00 91 02/28/17 17:36 97.5 85 16 116/68 02/28/17 17:18 97.5 84 16 138/77 100 02/28/17 17:15 97.5 84 16 126/73 (90) 100 02/28/17 16:15 97.5 82 16 150/87 (108) 100 02/28/17 16:10 100 40 02/28/17 16:00 79 02/28/17 16:00 97.5 79 16 152/89 (110) 100 02/28/17 16:00 40 02/28/17 15:15 96.4 82 20 149/90 (109) 100 02/28/17 14:15 97.6 83 20 103/65 (78) 100 02/28/17 14:00 83 02/28/17 13:45 97.5 96 20 125/74 (91) 100 02/28/17 13:15 97.8 83 20 127/75 (92) 100 02/28/17 13:06 100 45 02/28/17 12:45 97.5 92 20 130/78 (95) 100 02/28/17 12:15 97.5 92 20 138/79 (98) 100 02/28/17 12:00 97.6 98 20 163/91 (115) 100 02/28/17 12:00 97.6 98 20 163/91 (115) 100 02/28/17 12:00 98 02/28/17 12:00 50 02/28/17 11:45 97.9 90 28 192/92 (125) 100 02/28/17 11:30 97.9 94 28 166/94 (118) 100 -: 03/01/17 1000 03/01/17 0540 Physical Exam General Appearance: Pale Eyes Eye Exam: Pupils Equal Throat Throat Exam: Oral Mucosa [place] & Moist Neck Neck Exam: Neck Supple Pulmonary Resp Exam: Crackles, Rhonchi, Decreased Bases, Diminished Breath Sounds Cardiology CV Exam: Normal Sinus Rhythm, Tachycardia Gastrointestinal/Abdomen GI Exam: Non-Tender, Distended Extremeties Extremities Exam: Moderate Edema Assessment/Plan Problem List: (1) Acute renal failure ICD Codes: N17.9 - Acute kidney failure, unspecified Status: Acute Plan: Patient developed Hypotension,sepsis staph aureus respiratory failure and increase WBC. Had aspiration pneumonia, developed sepsis with ARF again creatinine declined slightly post hydration he also had retroperitoneal bleed elevated intra abdominal pressures Cr rising with poor UOP as bleeder, cannot use Heparin try intermittent HD slow dialysis get 2 -2.5 L off off vasopressors monitor BP use Levophed if need (2) CKD (chronic kidney disease) stage 3, GFR 30-59 ml/min ICD Codes: N18.3 - Chronic kidney disease, stage 3 (moderate) Status: Chronic Plan: Ultrasound revealed chronic kidney disease there is no kidney stones (3) Diabetes ICD Codes: E11.9 - Type 2 diabetes mellitus without complications Plan: Continue to monitor (4) Distal end of ulna fracture, closed ICD Codes: S52.609A - Unspecified fracture of lower end of unspecified ulna, initial encounter for closed fracture Status: Acute Plan: Orthopedic is following Problem Qualifiers (1) Acute renal failure: Qualified Codes: N17.9 - Acute kidney failure, unspecified Laura Liao MD Mar 01, 2017 11:23
[2017-03-01] MEDS ORDERED: diphenhydrAMINE HCL 25 MG CAP PO PRN (11:30)
[2017-03-01] MEDS ORDERED: ONDANSETRON HCL 4 MG/2 ML VIAL IV PUSH PRN (11:30)
[2017-03-01] MEDS ORDERED: ACETAMINOPHEN 325 MG TAB PO PRN (11:30)
[2017-03-01] MEDS ORDERED: SODIUM CHLORIDE 0.9% FLUSH 10 ML FLUSH IV FLUSH PRN ×2 (11:30→13:00)
[2017-03-01] MEDS ORDERED: NITROGLYCERIN 0.4 MG SL 25 TABS/BTL SL PRN (11:30)
[2017-03-01] MEDS ORDERED: GELATIN 12 MM/7 MM FOAM TOP PRN (11:30)
[2017-03-01] MEDS: SODIUM CHLOR 0.9% 1000 ML INJ 1,000 ML IV SCH (12:00)
--- NOTE | 2017-03-01 12:47 | PD.WCN.NOT ---
Wound Consult Description: Follow up of sacral Stage IV pressure injury. Communicated with: Patient having bedside procedure with Dr Aguiar and Lacey,RN Additional Information: Will attempt to see patient at a later time Juana Osman [facility] Mar 01, 2017 12:47
--- NOTE | 2017-03-01 12:49 | PD.PROCEDR ---
Procedure Note Procedure DATE: 03/01/2017 Hemodialysis LINE PLACEMENT: Left internal vein. Ultrasound-guided INDICATION: Hemodialysis access CONSENT Informed consent for procedure was obtained from sister. DESCRIPTION OF THE PROCEDURE The patient was placed in supine position. The skin was cleansed with Chloraprep. Additional barrier precautions included large sterile drape, sterile gloves, sterile gown, face mask, and hat. 1 % lidocaine was used for local anesthesia. Under direct ultrasound guidance and on initial attempt, the vein was accessed with an introducer needle. The guide wire was advanced and the tract was dilated. Using Seldinger technique a 14 [place] 20 cm hemodialysis SCHLON catheter was advanced to a depth of 20 centimeters. The guide wire was removed. All ports had good return of dark venous blood and flushed easily with saline. The central line was secured with 2.0 silk. A sterile dressing with antibiotic disc was applied. ESTIMATED BLOOD LOSS: Minimal COMPLICATIONS: No apparent complications. STAT chest x-ray pending at time of dictation Janes Aguiar MD Mar 01, 2017 12:49
[2017-03-01] MEDS ORDERED: HEPARIN SODIUM - IV 2,000 UNITS/2 ML VIAL IV FLUSH PRN (13:00)
[2017-03-01] MEDS ORDERED: MISCELLANEOUS PHARMACY INFORMATION XX PRN (13:15)
[2017-03-01] MEDS ORDERED: ASP: Documented ESBL, MDR A baumannii or P. aeruginosa PRN (13:15)
--- NOTE | 2017-03-01 13:34 | HHI.IDPN ---
Subjective Subjective Remarks Patient is a 62-year-old male, admitted to the hospital for evaluation of pain in his right wrist. He gave a history of falling about a week ago and apparently had immediate pain in the right wrist. He did not seek any medical attention initially because reportedly he was very busy. He eventually presented, and he was found to have a distal ulnar fracture on plain films. He also had some redness and swelling. Orthopedics saw the patient, and was being treated conservatively with the splint. During this hospitalization also he started complaining of generalized weakness but more so in his lower extremity than his upper extremity. He had swelling in both lower extremity which revealed evidence of DVT in the posterior tibial veins. Neurology had seen the patient and he underwent lumbar puncture which apparently was traumatic. Patient was therefore not given anticoagulation because of the traumatic LP, and he underwent placement of an IVC filter on January 25. Patient had another lumbar puncture on February 01. He was felt to have transverse myelitis, and he was given high-dose IV Solu-Medrol from January 27 to February 02. There was apparently some improvement in his weakness. The imaging studies done for his weakness showed some spinal stenosis, and neurosurgery was consult that and recommended that there was no surgical intervention to be done. Patient has been stabilizing, but last night apparently deteriorated, and he ended up getting intubated, and had significant hypotension requiring pressors. There was also an ultrasound done of his left upper extremity which showed DVT, and there was evidence of superior 2 thrombophlebitis. Vascular surgery was consult to it and he had IND on his left upper extremity. Patient has had some fevers since yesterday. 2 blood cultures were done yesterday and they're now reported as growing gram-positive cocci in [place] in clusters. He is currently sedated and intubated. He is on Levophed and vasopressin. A central line was placed as well as a femoral a line. He apparently had an IV in his left upper extremity and that was removed yesterday. Patient also has history of chronic kidney disease, and nephrology evaluated the patient. He was just being monitored for his renal insufficiency. Infectious disease consultation has been requested to evaluate the patient. Notes reviewed D/W RN Temps ok To be started on HD, vascath just placed Off pressors Sedated and on nimbex Events noted Has large R retroperitoneal hematoma and had coiling of bleeder yesterday Has line JOYCE, and line LSC Has CT on R Creatinine rising Low UO UC with Kleb ESBL BC negative so far Antibiotics Vancomycin Zosyn Diflucan Lines LSC TLC RIJ cordis Past Medical History Reviewed Allergies: Coded Allergies: levofloxacin (Verified Allergy, Severe, 01/22/17) Objective . Vital Signs Date Time Temp Pulse Resp B/P (MAP) Pulse Ox O2 Delivery O2 Flow Rate FiO2 03/01/17 12:00 98.0 85 16 101/59 (73) 100 03/01/17 12:00 40 03/01/17 12:00 85 03/01/17 10:47 100 40 03/01/17 10:00 83 03/01/17 08:00 89 03/01/17 08:00 98.7 87 16 126/73 (90) 98 03/01/17 08:00 40 03/01/17 07:39 98 40 03/01/17 07:00 100 Mechanical Ventilator 40 03/01/17 06:00 87 03/01/17 06:00 87 98/56 03/01/17 04:00 99.9 104 16 98/56 (70) 96 03/01/17 04:00 104 03/01/17 04:00 40 03/01/17 03:17 96 40 03/01/17 02:00 115 03/01/17 01:04 96 40 03/01/17 00:00 40 03/01/17 00:00 92 03/01/17 00:00 94.4 92 16 104/64 (77) 100 02/28/17 22:00 90 02/28/17 21:45 97.8 85 16 94/55 100 02/28/17 21:21 98.2 78 16 91/51 100 02/28/17 21:06 97.6 80 16 100/63 99 02/28/17 20:45 78 118/68 02/28/17 20:26 99 40 02/28/17 20:16 78 98/60 02/28/17 20:00 78 02/28/17 20:00 97.6 78 16 96/60 (72) 100 02/28/17 20:00 78 96/60 02/28/17 20:00 40 02/28/17 19:00 100 Mechanical Ventilator 40 02/28/17 19:00 97.6 78 24 112/70 100 02/28/17 18:46 85 16 109/67 100 02/28/17 18:15 85 16 121/71 (88) 100 02/28/17 18:00 91 02/28/17 17:36 97.5 85 16 116/68 02/28/17 17:18 97.5 84 16 138/77 100 02/28/17 17:15 97.5 84 16 126/73 (90) 100 02/28/17 16:15 97.5 82 16 150/87 (108) 100 02/28/17 16:10 100 40 02/28/17 16:00 79 02/28/17 16:00 97.5 79 16 152/89 (110) 100 02/28/17 16:00 40 02/28/17 15:15 96.4 82 20 149/90 (109) 100 02/28/17 14:15 97.6 83 20 103/65 (78) 100 02/28/17 14:00 83 02/28/17 13:45 97.5 96 20 125/74 (91) 100 . Laboratory Tests Test 02/27/17 16:59 02/27/17 20:55 02/28/17 00:15 02/28/17 08:15 Hemoglobin 7.1 GM/DL 8.5 GM/DL 6.5 GM/DL 11.5 GM/DL Hematocrit 22.1 % 25.4 % 19.4 % 34.0 % White Blood Count 26.9 TH/MM3 15.5 TH/MM3 17.7 TH/MM3 Red Blood Count 2.93 MIL/MM3 2.24 MIL/MM3 3.91 MIL/MM3 Mean Corpuscular Volume 86.7 FL 86.6 FL 86.9 FL Mean Corpuscular Hemoglobin 28.9 PG 29.2 PG 29.4 PG Mean Corpuscular Hemoglobin Concent 33.3 % 33.7 % 33.8 % Red Cell Distribution Width 14.8 % 14.6 % 14.7 % Platelet Count 157 TH/MM3 93 TH/MM3 137 TH/MM3 Mean Platelet Volume 8.6 FL 8.0 FL 8.6 FL Neutrophils (%) (Auto) 85.7 % 90.2 % Lymphocytes (%) (Auto) 8.2 % 5.5 % Monocytes (%) (Auto) 6.0 % 4.2 % Eosinophils (%) (Auto) 0.0 % 0.1 % Basophils (%) (Auto) 0.1 % 0.0 % Neutrophils # (Auto) 13.3 TH/MM3 15.9 TH/MM3 Lymphocytes # (Auto) 1.3 TH/MM3 1.0 TH/MM3 Monocytes # (Auto) 0.9 TH/MM3 0.7 TH/MM3 Eosinophils # (Auto) 0.0 TH/MM3 0.0 TH/MM3 Basophils # (Auto) 0.0 TH/MM3 0.0 TH/MM3 CBC Comment AUTO DIFF AUTO DIFF Differential Total Cells Counted 100 100 Neutrophils % (Manual) 77 % 78 % Band Neutrophils % 5 % 8 % Lymphocytes % 10 % 4 % Monocytes % 3 % 5 % Neutrophils # (Manual) 13.5 TH/MM3 16.1 TH/MM3 Myelocytes 3 % 2 % Promyelocytes 2 % Differential Comment FINAL DIFF MANUAL FINAL DIFF MANUAL Platelet Estimate LOW LOW Platelet Morphology Comment NORMAL NORMAL Basophilic Stippling FAINT Metamyelocytes 3 % Nucleated Red Blood Cells 1 /100 WBC Red Cell Morphology Comment NORMAL Test 02/28/17 12:00 02/28/17 16:00 02/28/17 21:01 03/01/17 04:00 Hemoglobin 10.1 GM/DL 7.7 GM/DL 9.5 GM/DL 9.6 GM/DL Hematocrit 29.3 % 22.0 % 27.7 % 27.7 % White Blood Count 12.3 TH/MM3 Red Blood Count 3.21 MIL/MM3 Mean Corpuscular Volume 86.1 FL Mean Corpuscular Hemoglobin 29.6 PG Mean Corpuscular Hemoglobin Concent 34.4 % Red Cell Distribution Width 14.9 % Platelet Count 72 TH/MM3 Mean Platelet Volume 8.4 FL Test 03/01/17 05:40 03/01/17 10:00 White Blood Count 16.1 TH/MM3 Red Blood Count 3.18 MIL/MM3 Hemoglobin 9.4 GM/DL 8.7 GM/DL Hematocrit 27.6 % 25.4 % Mean Corpuscular Volume 86.6 FL Mean Corpuscular Hemoglobin 29.7 PG Mean Corpuscular Hemoglobin Concent 34.3 % Red Cell Distribution Width 15.0 % Platelet Count 74 TH/MM3 Mean Platelet Volume 8.5 FL Neutrophils (%) (Auto) 92.7 % Lymphocytes (%) (Auto) 2.6 % Monocytes (%) (Auto) 4.6 % Eosinophils (%) (Auto) 0.0 % Basophils (%) (Auto) 0.1 % Neutrophils # (Auto) 15.0 TH/MM3 Lymphocytes # (Auto) 0.4 TH/MM3 Monocytes # (Auto) 0.7 TH/MM3 Eosinophils # (Auto) 0.0 TH/MM3 Basophils # (Auto) 0.0 TH/MM3 CBC Comment AUTO DIFF Differential Total Cells Counted 100 Neutrophils % (Manual) 88 % Band Neutrophils % 4 % Lymphocytes % 2 % Monocytes % 3 % Neutrophils # (Manual) 15.3 TH/MM3 Metamyelocytes 1 % Myelocytes 2 % Differential Comment FINAL DIFF MANUAL Platelet Estimate LOW Platelet Morphology Comment NORMAL Red Cell Morphology Comment NORMAL Laboratory Tests Test 02/27/17 20:55 02/27/17 23:55 02/28/17 08:15 02/28/17 12:00 Blood Urea Nitrogen 24 MG/DL 22 MG/DL Creatinine 1.92 MG/DL 1.88 MG/DL Random Glucose 231 MG/DL 234 MG/DL Total Protein 4.2 GM/DL 5.4 GM/DL Calcium Level 7.2 MG/DL 10.1 MG/DL Sodium Level 141 MEQ/L 142 MEQ/L Potassium Level 4.4 MEQ/L 3.8 MEQ/L Chloride Level 109 MEQ/L 109 MEQ/L Carbon Dioxide Level 17.5 MEQ/L 20.9 MEQ/L Anion Gap 15 MEQ/L 12 MEQ/L Estimat Glomerular Filtration Rate 36 ML/MIN 37 ML/MIN Lactic Acid Level 6.9 mmol/L 3.0 mmol/L 2.7 mmol/L 2.2 mmol/L Protein Corrected Calcium 8.9 MG/DL Albumin 1.8 GM/DL 2.6 GM/DL Phosphorus Level 6.1 MG/DL Magnesium Level 2.1 MG/DL Alkaline Phosphatase 81 U/L Aspartate Amino Transf (AST/SGOT) 72 U/L Alanine Aminotransferase (ALT/SGPT) 24 U/L Total Bilirubin 0.9 MG/DL Ammonia 23 MCMOL/L Amylase Level 123 U/L Lipase 1222 U/L Test 02/28/17 16:00 02/28/17 23:30 03/01/17 05:40 03/01/17 06:00 Blood Urea Nitrogen 24 MG/DL 25 MG/DL Creatinine 1.90 MG/DL 2.07 MG/DL Random Glucose 235 MG/DL 211 MG/DL Calcium Level 7.8 MG/DL 7.1 MG/DL Phosphorus Level 4.9 MG/DL 5.4 MG/DL Magnesium Level 1.9 MG/DL 1.8 MG/DL Sodium Level 144 MEQ/L 144 MEQ/L Potassium Level 3.5 MEQ/L 3.6 MEQ/L Chloride Level 112 MEQ/L 112 MEQ/L Carbon Dioxide Level 20.1 MEQ/L 18.9 MEQ/L Anion Gap 12 MEQ/L 13 MEQ/L Estimat Glomerular Filtration Rate 36 ML/MIN 33 ML/MIN Lactic Acid Level 1.2 mmol/L 1.1 mmol/L 1.0 mmol/L Total Creatine Kinase 273 U/L 155 U/L Total Protein 4.6 GM/DL Albumin 2.2 GM/DL Alkaline Phosphatase 60 U/L Aspartate Amino Transf (AST/SGOT) 34 U/L Alanine Aminotransferase (ALT/SGPT) 17 U/L Total Bilirubin 0.3 MG/DL Protein Corrected Calcium 8.5 MG/DL Amylase Level 174 U/L Lipase 1499 U/L Ammonia 22 MCMOL/L Test 03/01/17 10:00 Lactic Acid Level 0.8 mmol/L Microbiology Date/Time Source Procedure Growth Status 02/27/17 03:48 Blood Peripheral Aerobic Blood Culture - Preliminary NO GROWTH IN 2 DAYS Resulted 02/27/17 03:48 Blood Peripheral Anaerobic Blood Culture - Preliminary NO GROWTH IN 2 DAYS Resulted 02/27/17 03:40 Blood Peripheral Aerobic Blood Culture - Preliminary NO GROWTH IN 2 DAYS Resulted 02/27/17 03:40 Blood Peripheral Anaerobic Blood Culture - Preliminary NO GROWTH IN 2 DAYS Resulted 02/27/17 08:32 Urine Catheterized Urine Urine Culture - Final Klebsiella Pneumoniae Esbl Pos Complete Imaging Chest X-Ray 02/24/17 0600 Signed Impressions: Service Date/Time: Friday, February 24, 2017 03:58 - CONCLUSION: 1. Unchanged left lower lobe infiltrate with small effusion. Candido Mendoza Jr., MD Chest X-Ray 02/20/17 0000 Signed Impressions: Service Date/Time: Monday, February 20, 2017 11:36 - CONCLUSION: 1. Stable very small right and small left pleural effusions with left lower lobe airspace consolidation. 2. No significant interval change. Juan Bhakta MD Abdomen/Pelvis CT 02/19/17 0000 Signed Impressions: Service Date/Time: Sunday, February 19, 2017 19:09 - CONCLUSION: 1. Areas of calcification seen in the right renal collecting system, right renal pelvis, and proximal right ureter. These appear to layer and be dependent suggesting likely to represent smaller areas of milk of calcium or small stones. There is mild dilatation of the right renal collecting system and right ureter. A definite obstructing stone at this time is not seen. 2. A small amount of air within the urinary bladder. This should be correlated with any recent catheterization. 3. Mild bilateral pleural effusions with accompanying atelectasis or consolidation at the left base. The consolidation was present previously. 4. Prominent degenerative change in the lumbar spine and at the hip joints bilaterally. Angelo Manzo MD Chest X-Ray 02/12/17 0600 Signed Impressions: Service Date/Time: Sunday, February 12, 2017 03:32 - CONCLUSION: 1. Support apparatus in good position. Relatively stable basilar airspace disease and pleural effusions. Trace Holloway MD Upper Extremity Ultrasound 02/10/17 0000 Signed Impressions: Service Date/Time: Friday, February 10, 2017 18:46 - CONCLUSION: Occlusive thrombus in the cephalic and basilic veins. Benjamin Person MD Lung Scan- Nuclear Medicine 02/10/17 0000 Signed Impressions: Service Date/Time: Friday, February 10, 2017 22:17 - CONCLUSION: Low probability pulmonary embolism. Candido Patton MD Head CT 02/10/17 0000 Signed Impressions: Service Date/Time: Friday, February 10, 2017 23:51 - CONCLUSION: Negative noncontrast CT brain. Candido Patton MD Chest CT 02/10/17 0000 Signed Impressions: Service Date/Time: Friday, February 10, 2017 23:56 - CONCLUSION: Left lower lobe collapse with consolidation. Patchy infiltrates the medial right lower lung. Candido Patton MD Abdomen/Pelvis CT 02/10/17 0000 Signed Impressions: Service Date/Time: Friday, February 10, 2017 23:59 - CONCLUSION: 1. Nonobstructing 12 mm calcified stone lower pole right kidney. 2. Atrophic left kidney with significant cortical thinning. 3. Bilateral fat-containing inguinal hernias, large on the right, and moderate on the left. 4. Consolidative collapse of the left lower lobe. Candido Patton MD Abdomen X-Ray 02/10/17 0000 Signed Impressions: Service Date/Time: Friday, February 10, 2017 08:14 - CONCLUSION: No acute abdominal abnormality is identified. Angelo Allen MD Wrist X-Ray 02/06/17 0000 Signed Impressions: Service Date/Time: Monday, February 06, 2017 12:50 - CONCLUSION: Minimally displaced distal radius and ulnar fractures. Armando Dodd MD Lumbar Puncture Fluoroscopy 02/01/17 0000 Signed Impressions: Service Date/Time: January 09:35 - CONCLUSION: Uncomplicated fluoroscopically guided lumbar puncture. CSF was clear. Nabeel Peralta MD Head Magnetic Resonance Angiography 01/27/17 0000 Signed Impressions: Service Date/Time: Friday, January 27, 2017 10:33 - CONCLUSION: No intracranial vascular abnormality is identified. There is no aneurysm visualized. Angelo Allen MD IVC Filter Placement X-Ray 01/25/17 0000 Signed Impressions: Service Date/Time: January 10:29 - CONCLUSION: Uncomplicated inferior vena cava filter placement as above. Yung Fowler MD Thoracic Spine MRI 01/24/17 0000 Signed Impressions: Service Date/Time: Tuesday, January 24, 2017 22:29 - CONCLUSION: 1. Mild degenerative spondylosis most prominently at T11-L1 with slight effacement of the anterior thecal sac and left lateral recess. No significant neural foraminal stenosis. 2. No acute fracture. Juan Bhakta MD Renal Ultrasound 01/23/17 0000 Signed Impressions: Service Date/Time: Monday, January 23, 2017 08:53 - CONCLUSION: 1. Evidence of chronic parenchymal disease of both kidneys. No obstructive uropathy or other acute abnormality demonstrated. 2. Trace ascites, nonspecific. Angelo Garrido MD Lumbar Spine MRI 01/23/17 0000 Signed Impressions: Service Date/Time: Monday, January 23, 2017 17:01 - CONCLUSION: 1. At L4-5 is a broad-based disc protrusion with severe central canal and lateral recess stenosis and flattening of the exiting right L4 nerve root. 2. L5-S1 there is a disc protrusion and moderate stenosis with flattening of the exiting L5 nerve roots bilaterally. 3. At L3-4 there is a moderate to severe central stenosis and lateral recess stenosis with mild foraminal stenosis. 4. No acute fracture or spondylolisthesis. Trace Holloway MD Lower Extremity Ultrasound 01/23/17 Signed Impressions: Service Date/Time: Monday, January 23, 2017 09:53 - CONCLUSION: Bilateral focal lower extremity DVT involving the posterior tibial veins. Angelo Garrido MD Cervical Spine MRI 01/23/17 Signed Impressions: Service Date/Time: Monday, January 23, 2017 17:01 - CONCLUSION: 1. Multilevel cervical spine degenerative changes as above. 2. Mild degrees of spinal stenosis at C3/C4-C6/C7. No cord compression or cord signal abnormality. 3. Age indeterminate left paracentral/foraminal disc protrusion at C6/C7. 4. Multilevel foraminal stenosis, most severe on the left at C6/C7. Please see individual levels above. 5. No fracture or subluxation of the cervical spine. Angelo Garrido MD Brain MRI 01/23/17 Signed Impressions: Service Date/Time: Monday, January 23, 2017 17:01 - CONCLUSION: 1. No acute stroke or other acute intracranial abnormality demonstrated. 2. Moderate severity chronic white matter changes, nonspecific but most likely related to chronic small vessel disease. 3. Few scattered tiny lacunar infarcts of the brainstem. 4. Given the findings are not entirely specific, clinical evaluation for possible multiple sclerosis recommended. Angelo Garrido MD Knee X-Ray 01/22/[id number] Signed Impressions: Service Date/Time: Sunday, January 22, 2017 21:17 - CONCLUSION: 1. Evidence of moderate to large joint effusion. 2. No acute fracture or malalignment. 3. Mild 3 compartment osteoarthritic change. Benjamin Person MD Hip and Pelvis X-Ray [id number]/22/[id number] Signed Impressions: Service Date/Time: Sunday, January 22, 2017 21:10 - CONCLUSION: 1. Mild to moderate degenerative change of both hips with no acute fracture or malalignment. There is flattening and remodeling of the right humeral head. Benjamin Person MD Physical Exam GENERAL:Sedated and on nimbex. On vent, NAD, looks edematous SKIN: Cool and dry. No generalized rash. EYES: [place] conjunctiva. No petechia or hemorrhage. EARS, NOSE AND THROAT: Nose without bleeding or purulent nasal discharge. ET in mouth NECK: Trachea midline. Supple and no meningeal signs CARDIOVASCULAR: Regular rate and rhythm. Soft heart sounds. No murmurs, rubs or gallops heard RESPIRATORY: Coarse BS bilaterally, decreased at bases. R CT with serosanguineous fluid ABDOMEN: Soft, mildly distended, no reaction to palpation EXTREMITIES: No clubbing, cyanosis. Both hands less edematous. Has evidence of multiple gouty tophi in both hands and feet. LUE - wound vac in place NEUROLOGICAL: Sedated and on NImbex PSYCHIATRIC: Unable to assess LINE: Lines with no evidence of infection Assessment & Plan Remarks IMPRESSION New shock, due to large R retroperitoneal bleed, S/P multiple transfusions and S/P coiling of bleeders Elevated amylase and lipase, ?due to shock Anemia, due to bleed, retroperitoneal MSSA sepsis, due to suppurative thrombophlebitis LUE, S/P I and D and excision of portion of cephalic vein Respiratory failure, has had several intubations - reintubated again today 02/28 Recent Rx 7 days high dose solumedrol for transverse myelitis Wu LE DVT has IVC filter placed 01/25 - ?hypercoagulable state Chronic kidney disease, worsening creatinine - shock and compression of ureter by hematoma Known DM, HTN Gouty tophi both hands and feet Diarrhea, C diff negative UTI, GNR RECOMMENDATION Continue vanco, check level and redose Change Zosyn to Invanz to cover ESBL+ in UC Continue Diflucann for now Follow C/S and deescalate Abx further H/H being monitored Monitor temps Monitor progress D/W Irene Vogel MD Mar 01, 2017 13:34
--- NOTE | 2017-03-01 13:57 | RADRPT ---
EXAM DATE/TIME: 03/01/2017 13:03 [facility] COMPARISON: CHEST SINGLE AP, March 01, 2017, 9:08. INDICATIONS : Post central line placement MEDICAL HISTORY : diabetes, gout, kidney disease SURGICAL HISTORY : renal stents ENCOUNTER: Subsequent ACUITY: 2 weeks PAIN SCORE: Non-responsive. LOCATION: Bilateral chest FINDINGS: A left jugular central venous catheter has been inserted. Its tip is in the proximal superior vena ca va. There is no evidence of pneumothorax. Significant airspace disease and effusion remains evident i n the left lung. Right lung is hypoaerated but clear. Heart and mediastinal structures are stable. Endotracheal tube, nasogastric tube and left subclavian catheter remain in good position. CONCLUSION: Interval placement of a left internal jugular central venous catheter. No evidence of pneumothorax. Otherwise stable chest Lenny Ware MD on March 01, 2017 at 13:53 Board Certified Radiologist. This report was verified electronically.
--- NOTE | 2017-03-01 14:00 | HHI.PR ---
Subjective Subjective Notes Intubated Sedated Paralyzed Objective Vitals/I&O Vital Signs Date Time Temp Pulse Resp B/P (MAP) Pulse Ox O2 Delivery O2 Flow Rate FiO2 03/01/17 12:00 98.0 85 16 101/59 (73) 100 03/01/17 12:00 40 03/01/17 07:00 Mechanical Ventilator 02/28/17 07:00 2.00 Labs Laboratory Tests Test 02/28/17 15:40 02/28/17 16:00 02/28/17 20:05 02/28/17 21:01 Blood Gas Puncture Site ART LINE CANDI Blood Gas Patient Temperature 98.6 98.6 Blood Gas HCO3 19 19 Blood Gas Base Excess -3.6 -4.3 Blood Gas Oxygen Saturation 97 97 Arterial Blood pH 7.49 7.43 Arterial Blood Partial Pressure CO2 26 30 Arterial Blood Partial Pressure O2 153 129 Arterial Blood Oxygen Content 10.4 12.7 Arterial Blood Carboxyhemoglobin 1.4 1.3 Arterial Blood Methemoglobin 1.2 1.0 Blood Gas Hemoglobin 7.4 9.1 Oxygen Delivery Device VENTILATOR VENTILATOR Blood Gas Ventilator Setting PRVC/AC SEE COMMENT Blood Gas Inspired Oxygen 45 40 Hemoglobin 7.7 9.5 Hematocrit 22.0 27.7 Prothrombin Time 12.7 12.3 Prothromb Time International Ratio 1.1 1.1 Activated Partial Thromboplast Time 32.3 33.1 Fibrinogen 306 337 Blood Urea Nitrogen 24 Creatinine 1.90 Random Glucose 235 Calcium Level 7.8 Phosphorus Level 4.9 Magnesium Level 1.9 Sodium Level 144 Potassium Level 3.5 Chloride Level 112 Carbon Dioxide Level 20.1 Anion Gap 12 Estimat Glomerular Filtration Rate 36 Lactic Acid Level 1.2 Total Creatine Kinase 273 White Blood Count 12.3 Red Blood Count 3.21 Mean Corpuscular Volume 86.1 Mean Corpuscular Hemoglobin 29.6 Mean Corpuscular Hemoglobin Concent 34.4 Red Cell Distribution Width 14.9 Platelet Count 72 Mean Platelet Volume 8.4 Test 02/28/17 23:30 03/01/17 01:17 03/01/17 04:00 03/01/17 05:09 Lactic Acid Level 1.1 Blood Gas Puncture Site CANDI CHRISTOPHER Blood Gas Patient Temperature 98.6 98.6 Blood Gas HCO3 19 18 Blood Gas Base Excess -4.9 -5.6 Blood Gas Oxygen Saturation 96 97 Arterial Blood pH 7.41 7.40 Arterial Blood Partial Pressure CO2 31 30 Arterial Blood Partial Pressure O2 95 119 Arterial Blood Oxygen Content 13.7 13.1 Arterial Blood Carboxyhemoglobin 1.3 1.2 Arterial Blood Methemoglobin 1.1 1.1 Blood Gas Hemoglobin 10.1 9.5 Oxygen Delivery Device VENTILATOR VENTILATOR Blood Gas Ventilator Setting SEE COMMENT SEE COMMENT Blood Gas Inspired Oxygen 40 40 Hemoglobin 9.6 Hematocrit 27.7 Test 03/01/17 05:40 03/01/17 06:00 03/01/17 10:00 White Blood Count 16.1 Red Blood Count 3.18 Hemoglobin 9.4 8.7 Hematocrit 27.6 25.4 Mean Corpuscular Volume 86.6 Mean Corpuscular Hemoglobin 29.7 Mean Corpuscular Hemoglobin Concent 34.3 Red Cell Distribution Width 15.0 Platelet Count 74 Mean Platelet Volume 8.5 Neutrophils (%) (Auto) 92.7 Lymphocytes (%) (Auto) 2.6 Monocytes (%) (Auto) 4.6 Eosinophils (%) (Auto) 0.0 Basophils (%) (Auto) 0.1 Neutrophils # (Auto) 15.0 Lymphocytes # (Auto) 0.4 Monocytes # (Auto) 0.7 Eosinophils # (Auto) 0.0 Basophils # (Auto) 0.0 CBC Comment AUTO DIFF Differential Total Cells Counted 100 Neutrophils % (Manual) 88 Band Neutrophils % 4 Lymphocytes % 2 Monocytes % 3 Neutrophils # (Manual) 15.3 Metamyelocytes 1 Myelocytes 2 Differential Comment FINAL DIFF MANUAL Platelet Estimate LOW Platelet Morphology Comment NORMAL Red Cell Morphology Comment NORMAL Prothrombin Time 12.8 Prothromb Time International Ratio 1.2 Activated Partial Thromboplast Time 35.4 Fibrinogen 366 Blood Urea Nitrogen 25 Creatinine 2.07 Random Glucose 211 Total Protein 4.6 Albumin 2.2 Calcium Level 7.1 Phosphorus Level 5.4 Magnesium Level 1.8 Alkaline Phosphatase 60 Aspartate Amino Transf (AST/SGOT) 34 Alanine Aminotransferase (ALT/SGPT) 17 Total Bilirubin 0.3 Sodium Level 144 Potassium Level 3.6 Chloride Level 112 Carbon Dioxide Level 18.9 Anion Gap 13 Estimat Glomerular Filtration Rate 33 Lactic Acid Level 1.0 0.8 Protein Corrected Calcium 8.5 Total Creatine Kinase 155 Amylase Level 174 Lipase 1499 Ammonia 22 Date/Time Source Procedure Growth Status 02/27/17 03:48 Blood Peripheral Aerobic Blood Culture - Preliminary NO GROWTH IN 2 DAYS Resulted 02/27/17 03:48 Blood Peripheral Anaerobic Blood Culture - Preliminary NO GROWTH IN 2 DAYS Resulted 02/01/17 09:55 Cerebral Spinal Fluid Lumbar Puncture Fungal Smear - Final NO FUNGAL ELEMENTS SEEN. Resulted 02/01/17 09:55 Cerebral Spinal Fluid Lumbar Puncture Fungal Culture - Preliminary NO GROWTH IN 3 WEEKS Resulted 02/17/17 05:55 Stool Stool Stool Occult Blood (GREGORY) - Final HEMOCCULT POSITIVE Complete 02/20/17 12:55 Sputum Endotracheal Gram Stain - Final Complete 02/20/17 12:55 Sputum Endotracheal Sputum Culture - Final HEAVY GROWTH NORMAL RESPIRATORY EARL Complete 02/27/17 08:32 Urine Catheterized Urine Urine Culture - Final Klebsiella Pneumoniae Esbl Pos Complete 02/11/17 09:10 Abscess Arm Acid Fast Stain - Final NO ACID FAST BACILLI SEEN Resulted 02/11/17 09:10 Abscess Arm Mycobacterial Culture - Preliminary NO GROWTH IN 2 WEEKS Resulted Cardiovascular: Regular Lungs: Clear Abdomen: Other (obese abdomen; overall distended but soft ) Extremities: Other (moderate generalized edema ) A/P Assessment and Plan 62 year old male with recent diagnosis of transverse myelitis; retroperitoneal hematoma s/p IR embolization -Bladder pressures stable between 17-19 -Pressor support decreasing -On Nimbex -Continue to closely monitor Hmg -Nephrology following; starting HD -Discussed with Dr. Aguiar -Discussed with ROHINI Rahman and ROHINI Leong I CERTIFY AND ATTEST THAT I PERSONALLY EXAMINED THE PATIENT IN THEIR ROOM. MS MUNUGIA DOCUMENTED OUR VISIT AND ENTERED ORDERS IN THE EMR UNDER MY DIRECT SUPERVISION. Adriana Avalos MD, FACS Mar 01, 2017 14:00 Lino Lewis MD Mar 05, 2017 12:32
[2017-03-01 14:23] LABS: HEMATOCRIT 23.2 % (39.0-51.0); MEAN CORPUSCULAR HEMOGLOBIN 29.5 PG (27.0-34.0); MEAN CORPUSCULAR HGB CONC 33.9 % (32.0-36.0); PLATELET COUNT 58 TH/MM3 (150-450); RED BLOOD COUNT 2.67 MIL/MM3 (4.50-5.90); RED CELL DISTRIBUTION WIDTH 15.3 % (11.6-17.2); WHITE BLOOD COUNT 13.3 TH/MM3 (4.0-11.0)
[2017-03-01 14:27] LABS: REVIEW FLAG AUTO DIFF
--- NOTE | 2017-03-01 14:59 | PD.WCN.NOT ---
Wound Consult Description: Follow up of sacral Stage IV pressure injury. Communicated with: ROHINI Rahman Recommendation: Continue to offload pressure from sacrum and right buttock with Q2H turns. Calazime skin protectant BID and PRN for partial thickness skin loss noted to right buttock and shallow sacral pressure injury Additional Information: Patient seen on 3 for follow up of wound evaluation of sacrum and right buttock. Patient is being followed by wound care weekly. Patient was assisted to his left side for assessment. Patient was noted to be lying on a [facility] sport mattress with low air loss. Wound on sacrum is a shallow full thickness wound measuring ~2cm x 0.5cm x 0.3cm, indicating a Stage IV pressure injury, with a right buttock periwound almost touching the sacral wound. There is ~20% fascia noted in the base of the sacral wound surrounded by ~40% pink and ~40% red non granulating tissue within the wound bed without drainage and without odor. Wound margins are open and sharp. Periwound is noted with partial thickness skin loss. Wound on right buttock measures 9cm x 4cm x <0.1cm with 100 % red non granulating tissue and minimal sanguinous drainage. It was recommended that the patient use an ultrasorb for moisture. It is still recommended that patient be repositioned every 2 hours and PRN for comfort. It was also recommended that patient continue to have Calazime skin protectant applied BID and PRN to sacrum and bilateral buttocks until moisture related issues have resolved so that a dressing can be placed over sacral pressure injury. Juana Osman [facility] Mar 01, 2017 14:59
[2017-03-01] MEDS: VASOPRESSIN INJ 40 UNITS in DEXTROSE 5% IN WATER 100ML INJ 98 ML IV SCH ×2 (15:00)
[2017-03-01 15:05] LABS: BICARBONATE 19.8 MEQ/L (21.0-32.0); POTASSIUM 3.4 MEQ/L (3.5-5.1)
[2017-03-01 15:36] LABS: CALCIUM-PROTEIN CORRECTED 7.8 MG/DL (8.5-10.1)
[2017-03-01 19:49] LABS: HEMATOCRIT 30.3 % (39.0-51.0)
[2017-03-01 19:50] LABS: REVIEW FLAG FINAL
[2017-03-01] MEDS: ERTAPENEM INJ 1,000 MG in SODIUM CHLORIDE 0.9% INJ 100 ML IV SCH (20:59)
[2017-03-01 22:32] LABS: HEMATOCRIT 28.7 % (39.0-51.0); MEAN CELL VOLUME 85.5 FL (80.0-100.0); MEAN CORPUSCULAR HEMOGLOBIN 29.4 PG (27.0-34.0); MEAN CORPUSCULAR HGB CONC 34.4 % (32.0-36.0); PLATELET COUNT 53 TH/MM3 (150-450); RED BLOOD COUNT 3.36 MIL/MM3 (4.50-5.90); RED CELL DISTRIBUTION WIDTH 14.8 % (11.6-17.2); WHITE BLOOD COUNT 15.8 TH/MM3 (4.0-11.0)
[2017-03-01 22:36] LABS: REVIEW FLAG FINAL
[2017-03-01 22:43] LABS: BICARBONATE 21.2 MEQ/L (21.0-32.0); CALCIUM-PROTEIN CORRECTED 7.9 MG/DL (8.5-10.1); MAGNESIUM 1.8 MG/DL (1.5-2.5); POTASSIUM 3.2 MEQ/L (3.5-5.1); TOTAL BILIRUBIN ADULT 0.3 MG/DL (0.2-1.0)
[2017-03-01] MEDS ORDERED: POTASSIUM CHLOR 20 MEQ PREMIX 100 ML IV ONE (23:45)
[2017-03-02] VITALS (20 sets, daily range): BP systolic 94–124; BP diastolic 60–76; PULSE 80–97; RESP 16; TEMP 96–98.2; O2SAT 98–100
[2017-03-02] MEDS ORDERED: CALCIUM GLUCONATE INJ 2 GM in DEXTROSE 5% IN WATER 100ML INJ 100 ML IV ONE ×2
--- NOTE | 2017-03-02 03:14 | RADRPT ---
EXAM DATE/TIME: 03/02/2017 01:56 [place] COMPARISON: CHEST SINGLE AP, March 01, 2017, 13:03. INDICATIONS : Evaluate for pneumothorax, Right side chest tube MEDICAL HISTORY : diabetes, gout, kidney disease SURGICAL HISTORY : Renal Stents ENCOUNTER: Subsequent ACUITY: 2 weeks PAIN SCORE: Non-responsive. LOCATION: Bilateral chest FINDINGS: A single view of the chest demonstrates an endotracheal tube in good position. Left central line in s uperior vena cava. Nasogastric tube traverses the esophagus. Bilateral airspace disease, left greater than right. Small pleural effusion on the left. No pneumothorax. CONCLUSION: 1. Supine apparatus in good position. Bilateral space disease, left greater than right. Left-sided pleural effusion similar to prior exam. Trace Holloway MD on March 02, 2017 at 3:11 Board Certified Radiologist. This report was verified electronically.
[2017-03-02] MEDS: RESP: ALBUTEROL 2.5 MG/IPRATROPIUM 0.5 MG NEB (SCH) NEB ×4 (03:20→21:23)
[2017-03-02] MEDS: INSULIN NovoLIN REGULAR SUPPLEMENTAL SCALE SQ SCH ×6 (04:00→21:19)
[2017-03-02] MEDS: BUMETANIDE INJ 100 ML IV SCH (05:03)
[2017-03-02] MEDS: HYDROCORTISONE SOD SUCCINATE 100 MG VIAL IV SCH ×3 (05:29→21:20)
[2017-03-02] MEDS: METOCLOPRAMIDE HCL 10 MG/2 ML VIAL IV PUSH SCH ×3 (05:30→21:21)
[2017-03-02] MEDS: ARTIFICIAL TEARS OPTH SOLN 15 ML BTL EACH EYE SCH ×3 (05:54→21:12)
[2017-03-02 06:04] LABS: AUTOMATED NEUTROPHIL # 15.7 TH/MM3 (1.8-7.7); BASOPHIL % 0.2 % (0.0-2.0); HEMATOCRIT 26.9 % (39.0-51.0); LYMPH % 2.5 % (9.0-44.0); LYMPHOCYTE # 0.4 TH/MM3 (1.0-4.8); MEAN CELL VOLUME 85.6 FL (80.0-100.0); MEAN CORPUSCULAR HEMOGLOBIN 29.9 PG (27.0-34.0); MEAN CORPUSCULAR HGB CONC 34.9 % (32.0-36.0); MONO % 4.5 % (0.0-8.0); NEUT % 92.8 % (16.0-70.0); PLATELET COUNT 56 TH/MM3 (150-450); RED BLOOD COUNT 3.14 MIL/MM3 (4.50-5.90); RED CELL DISTRIBUTION WIDTH 15.5 % (11.6-17.2); WHITE BLOOD COUNT 16.9 TH/MM3 (4.0-11.0)
[2017-03-02 06:08] LABS: HEMO FLAGS AUTO DIFF
[2017-03-02 06:17] LABS: APTT (PATIENT) 35.9 SEC (24.3-30.1); INTERNATIONAL NORMALIZED RATIO 1.1 RATIO
[2017-03-02] MEDS: VASOPRESSIN INJ 40 UNITS in DEXTROSE 5% IN WATER 100ML INJ 98 ML IV SCH ×2 (07:37)
[2017-03-02] MEDS: LACTOBACILLUS ACIDOPHILUS TAB PO SCH ×3 (08:22→16:48)
[2017-03-02] MEDS: SODIUM CHLORIDE 0.9% FLUSH 10 ML FLUSH IV FLUSH SCH ×2 (08:22→21:12)
[2017-03-02] MEDS: FLUCONAZOLE 400 MG PREMIX BAG 200 ML IV SCH (08:22)
[2017-03-02] MEDS: CHLORHEXIDINE 0.12% (ORAL KIT) 15 ML CUP MT SCH ×2 (08:23→21:12)
[2017-03-02] MEDS ORDERED: PHARMACY ORDERED LAB ONE (08:45)
[2017-03-02] MEDS ORDERED: VANCOMYCIN 1,000 MG/NS 250 ML IV SCH ×2 (09:00)
--- NOTE | 2017-03-02 09:12 | EKG ---
Date Performed: 03/01/2017 Time Performed: 23:08:12 PTAGE: 62 years EKG: Sinus rhythm Prolonged QT interval Poor R wave progression - probable normal variant Anterior T wave changes are nonspecific Borderline ECG PREVIOUS TRACING : 02/26/2017 21.10 No significant change from previous tracing noted. DOCTOR: Terence Carlisle Interpretating Date/Time 03/02/2017 09:10:15
[2017-03-02 09:18] LABS: BANDS 2 % (0-6); METAMYELOCYTES 1 % (0-1); NEUTROPHIL # MANUAL DIFF 16.6 TH/MM3 (1.8-7.7); PLATELET ESTIMATE SMEAR LOW (NORMAL); PLATELET MORPHOLOGY NORMAL (NORMAL); POLYS (SEG NEUTROPHILS) 95 % (16-70); WBC DIFF SAMPLE 100
[2017-03-02 09:19] LABS: SCAN/DIFF FINAL DIFF MANUAL
--- NOTE | 2017-03-02 09:57 | HHI.CCPN ---
Subjective Remarks/Hospital Course Date of admission: 01/22 Date of critical care medicine consult 02/10 due to acute hypoxemic respiratory failure requiring emergent intubation 62-year-old male with a past medical history of hypertension, hyperlipidemia, diabetes mellitus, gout, uric acid kidney stones, kidney disease of unknown stage who originally presented to [facility] emergency department on 01/22 after a fall in which he sustained a right distal ulna fracture. He had been experiencing a gradual primarily lower extremity weakness as well as upper extremity weakness that was progressive. Neurology consult was obtained. MRI revealed no acute stroke. He had multifocal white matter changes. Tiny lacunar infarcts of the brainstem. Lumbar MRI report states L4-L5 disc protrusion with cetnral canal stenosis. Dr. Blackwell evaluated and states no cord compression on MRI C/T spine and recommended nonoperative management. Symptoms were felt to be consistent with transverse myelitis and he underwent Solumedrol 250 mg IV q6 hours 01/27-02/02. He also was found to have occlusive thrombus in the bilateral posterior tibial veins. Heparin was being avoided because he had traumatic lumbar puncture on 01/26 and 02/01. IVC filter was placed 01/25. He was undergoing physical therapy, reportedly making some improvements with plan to eventually discharged home with his son (max assist standing, and bed to chair per PT note). Apparently he had some vomiting the evening of 02/09 and additional vomiting on 02/10. He had a fever 102.8 on 02/09. Last recorded bowel movement was 02/03. Tonight he had acute onset of severe hypoxemia and respiratory distress. [facility] called and he was brought emergently to [facility] where his sats were 64% on 100% nonrebreather with mean arterial pressure 44. He was emergently intubated, CVL and art line placed. He is in septic shock. SUBJ: 02/11: Patient remains intubated sedated, critically ill. FiO2 reduced to 80% after increasing PEEP to 12. In severe septic shock Levophed at 16 mcg/m, vasopressin at 0.04 international units. D/W vascular surgery Dr. Enciso. He performed bedside Left upper extremity incision and debridement and excision of septic cephalic vein. 02/12: Remains intubated sedated profoundly septic, in shock on vasopressin and 7 mcg/min Levophed. FiO2 has improved to 45%, WBC count remains elevated with 20 ,000 white count significant left shift. Slight improvement in creatinine 2.9 urine output 750 ml 24 hours. 2-D echo shows LV ejection fraction 20-25%, no vegetation reported. Blood cultures 4 staph aureus. Wound culture pending 02/13: Remains critically ill but stable to improving. WBC count is down to 16, creatinine improving to 2.36. Off all pressors. Urine output also improving. 1.5L in 24 hours 02/14: Extubated 02/13. Tolerating well. WBC now down to 12.8. Creat improving 2.3 to 2. UO 3.4L. remains off all pressors. Was started on Precedex yesterday night for agitation, currently on 0.5 g per KG per hour. Chest x-ray shows left more than right air space disease 02/20/17 Re consult: 62-year-old male who was originally admitted for lower extremity weakness and found to have what was thought to be possible transverse myelitis. His hospital course his included a healthcare associated pneumonia, septic thrombophlebitis, DVT. He was most recently in the hospital floor where he had significant nausea and vomiting and diarrhea. His C. difficile test was recently negative. However, he has experienced worsening acute on chronic renal failure, hypotension, tachycardia, and severe hypoxemia. He did have a bout of vomiting earlier today, and his hospitalist attending suspects that he may have aspirated. He arrives by rapid response to the ICU with a nonrebreather in place in severe respiratory distress with SPO2 of 85%. I emergently intubate the patient, see separate procedure note for details. At this point the patient was hypotensive and tachycardic. He does have a history of an EF of 20%, however clinically he appears in florid septic shock. I placed central line and arterial line started vasopressors and gentle IV fluid resuscitation with 1 L of LR. Patient today was empirically broadened to vancomycin and Zosyn from his oxacillin which was initially treating MSSA bacteremia. He is recultured. Critical-care medicine is consulted to evaluate and manage his worsening multiorgan system failure and decompensated septic shock 02/21: Patient remains intubated sedated. Becomes anxious tachypnea on sedation lightening. Chest x-ray shows mild left lower lobe infiltrate. WBC count is slightly improved today from 23.2 t0 21. C Diff negative. UO adequate, creat slightly worsening. 1.57 today 02/22: Remains intubated sedated tolerated CPAP yesterday, plan is for EGD/ Colonscopy. WBC count back to normal. UO adequate. Creat stable 02/23: Tolerating CPAP trials following commands. Will do a spontaneous breathing trials. Status post EGD colonoscopy yesterday -Gastritis, esophagitis. Diverticulosis and multiple polyps. Urine output adequate but creatinine increasing to 1.7 with patient requiring multiple straight catheterization. We'll reinsert Sloan. 02/24: Breathing comfortably 24 hours after extubation. Protects airway well. 02/25: Excoriate bottom, will place rectal FMS. Start pureed diet. 02/26: Afebrile. Complaining of nausea and vomiting this afternoon. Increased stool output. Continue potassium replacement today. 02/27: 10 PM overnight, acutely hypotensive. Received 3 units PRBCs. Antibiotic coverage broadened to piperacillin/tazobactam, cortisol and 1 dose of vancomycin. Oxacillin drip currently on hold. Symptomatically, patient continues to vague abdominal pain/nausea vomiting which is unchanged for the past several days. Lipase elevated yesterday. Lactic acid normal. Troponin normal. Urinary retention after removal of Sloan. Straight catheter 1300. Cc 02/28: New diagnosis large retroperitoneal hematoma. Received 10 PRBC, 14 FFP, 2 platelets, 1 cryo-, 6 g calcium chloride, 2 is magnesium sulfate and 4 mg Bumex. CTA abdomen revealed possible arterial bleeds iliac, lumbar. Patient is currently on norepinephrine and epinephrine drips and possible need right nephrostomy tube placement due to large hematoma compressing ureter. Intra-abdominal bladder pressures are currently 13 03/01: Afebrile. Received 25 g albumin and 1 unit PRBCs overnight. Intra- abdominal bladder pressures currently 19. Currently on 3 micrograms per minute of norepinephrine. [id number] 1 out of 4 on 4 mics grams per kilogram per minute of cisatracurium. Subjective 03/02: Slightly hypothermic overnight. Hemoglobin appears to have stabilized. Troponin bump overnight likely secondary to demand ischemia from hypotension. Hemodynamically stable off all vasopressors. Objective Vital Signs Date Time Temp Pulse Resp B/P (MAP) Pulse Ox O2 Delivery O2 Flow Rate FiO2 03/02/17 08:00 96.0 82 16 124/76 (92) 100 Automatic Cuff 03/02/17 08:00 40 03/02/17 07:00 Mechanical Ventilator 02/28/17 07:00 2.00 Intake and Output 03/02/17 03/02/17 03/03/17 08:00 16:00 00:00 Intake Total 682 ml Output Total 325 ml Balance 357 ml Result Diagram: 03/02/17 0544 03/01/17 2200 Other Results Microbiology Date/Time Source Procedure Growth Status 02/27/17 03:48 Blood Peripheral Aerobic Blood Culture - Preliminary NO GROWTH IN 2 DAYS Resulted 02/27/17 03:48 Blood Peripheral Anaerobic Blood Culture - Preliminary NO GROWTH IN 2 DAYS Resulted 02/01/17 09:55 Cerebral Spinal Fluid Lumbar Puncture Fungal Smear - Final NO FUNGAL ELEMENTS SEEN. Complete 02/01/17 09:55 Cerebral Spinal Fluid Lumbar Puncture Fungal Culture - Final NO GROWTH IN 4 WEEKS Complete 02/17/17 05:55 Stool Stool Stool Occult Blood (GREGORY) - Final HEMOCCULT POSITIVE Complete 02/20/17 12:55 Sputum Endotracheal Gram Stain - Final Complete 02/20/17 12:55 Sputum Endotracheal Sputum Culture - Final HEAVY GROWTH NORMAL RESPIRATORY EARL Complete 02/27/17 08:32 Urine Catheterized Urine Urine Culture - Final Klebsiella Pneumoniae Esbl Pos Complete 02/11/17 09:10 Abscess Arm Acid Fast Stain - Final NO ACID FAST BACILLI SEEN Resulted 02/11/17 09:10 Abscess Arm Mycobacterial Culture - Preliminary NO GROWTH IN 2 WEEKS Resulted Imaging Last Impressions Chest X-Ray 03/01/17 1247 Signed Impressions: Service Date/Time: February 13:03 - CONCLUSION: Interval placement of a left internal jugular central venous catheter. No evidence of pneumothorax. Otherwise stable chest Lenny Ware MD Aortography 02/28/17 0000 Signed Impressions: Service Date/Time: Tuesday, February 28, 2017 08:01 - CONCLUSION: 1. Active hemorrhage from distal right lateral sacral and iliolumbar branches successfully coil and Gelfoam embolized, as above. Juan Bhakta MD Abdomen/Pelvis CT 02/28/17 0000 Signed Impressions: Service Date/Time: Tuesday, February 28, 2017 06:51 - CONCLUSION: 1. The right retroperitoneal hematoma has increased in size, as above. There are 2 serpiginous arterially enhancing structures visualized, one in the right psoas muscle and another extending into the hematoma at the right iliac fossa. These could represent sites of continued active bleeding. 2. Stable moderate size left and small right pleural effusion with associated compressive atelectasis. 3. Stable small volume of free fluid in the abdomen and pelvis. There is also anasarca. The findings concerning the retroperitoneal hematoma were discussed with Dr. Aguiar via telephone at approximately 7: 10 AM on 02/28/2017. Angelo Allen MD Chest CT 02/27/17 0000 Signed Impressions: Service Date/Time: Monday, February 27, 2017 18:12 - CONCLUSION: 1. Bilateral pleural effusions with bibasilar atelectasis, left greater than right. Tom Sanchez MD Abdomen X-Ray 02/26/17 0000 Signed Impressions: Service Date/Time: Sunday, February 26, 2017 14:52 - CONCLUSION: 1. Nonobstructive bowel gas pattern. Juan Bhakta MD Upper Extremity Ultrasound 02/10/17 0000 Signed Impressions: Service Date/Time: Friday, February 10, 2017 18:46 - CONCLUSION: Occlusive thrombus in the cephalic and basilic veins. Benjamin Person MD Lung Scan- Nuclear Medicine 02/10/17 0000 Signed Impressions: Service Date/Time: Friday, February 10, 2017 22:17 - CONCLUSION: Low probability pulmonary embolism. Candido Patton MD Head CT 02/10/17 0000 Signed Impressions: Service Date/Time: Friday, February 10, 2017 23:51 - CONCLUSION: Negative noncontrast CT brain. Candido Patton MD Wrist X-Ray 02/06/17 0000 Signed Impressions: Service Date/Time: Monday, February 06, 2017 12:50 - CONCLUSION: Minimally displaced distal radius and ulnar fractures. Armando Dodd MD Lumbar Puncture Fluoroscopy 02/01/17 0000 Signed Impressions: Service Date/Time: January 09:35 - CONCLUSION: Uncomplicated fluoroscopically guided lumbar puncture. CSF was clear. Nabeel Peralta MD Head Magnetic Resonance Angiography 01/27/17 0000 Signed Impressions: Service Date/Time: Friday, January 27, 2017 10:33 - CONCLUSION: No intracranial vascular abnormality is identified. There is no aneurysm visualized. Angelo Allen MD IVC Filter Placement X-Ray 01/25/17 Signed Impressions: Service Date/Time: January 10:29 - CONCLUSION: Uncomplicated inferior vena cava filter placement as above. Yung Fowler MD Thoracic Spine MRI 01/24/17 Signed Impressions: Service Date/Time: Tuesday, January 24, 2017 22:29 - CONCLUSION: 1. Mild degenerative spondylosis most prominently at T11-L1 with slight effacement of the anterior thecal sac and left lateral recess. No significant neural foraminal stenosis. 2. No acute fracture. Juan Bhakta MD Renal Ultrasound 01/23/17 Signed Impressions: Service Date/Time: Monday, January 23, 2017 08:53 - CONCLUSION: 1. Evidence of chronic parenchymal disease of both kidneys. No obstructive uropathy or other acute abnormality demonstrated. 2. Trace ascites, nonspecific. Angelo Garrido MD Lumbar Spine MRI 01/23/17 Signed Impressions: Service Date/Time: Monday, January 23, 2017 17:01 - CONCLUSION: 1. At L4-5 is a broad-based disc protrusion with severe central canal and lateral recess stenosis and flattening of the exiting right L4 nerve root. 2. L5-S1 there is a disc protrusion and moderate stenosis with flattening of the exiting L5 nerve roots bilaterally. 3. At L3-4 there is a moderate to severe central stenosis and lateral recess stenosis with mild foraminal stenosis. 4. No acute fracture or spondylolisthesis. Trace Holloway MD Lower Extremity Ultrasound 01/23/17 Signed Impressions: Service Date/Time: Monday, January 23, 2017 09:53 - CONCLUSION: Bilateral focal lower extremity DVT involving the posterior tibial veins. Angelo Garrido MD Cervical Spine MRI 01/23/17 Signed Impressions: Service Date/Time: Monday, January 23, 2017 17:01 - CONCLUSION: 1. Multilevel cervical spine degenerative changes as above. 2. Mild degrees of spinal stenosis at C3/C4-C6/C7. No cord compression or cord signal abnormality. 3. Age indeterminate left paracentral/foraminal disc protrusion at C6/C7. 4. Multilevel foraminal stenosis, most severe on the left at C6/C7. Please see individual levels above. 5. No fracture or subluxation of the cervical spine. Angelo Garrido MD Brain MRI 01/23/17 0000 Signed Impressions: Service Date/Time: Monday, January 23, 2017 17:01 - CONCLUSION: 1. No acute stroke or other acute intracranial abnormality demonstrated. 2. Moderate severity chronic white matter changes, nonspecific but most likely related to chronic small vessel disease. 3. Few scattered tiny lacunar infarcts of the brainstem. 4. Given the findings are not entirely specific, clinical evaluation for possible multiple sclerosis recommended. Angelo Garrido MD Knee X-Ray 01/22/[id number] Signed Impressions: Service Date/Time: Sunday, January 22, 2017 21:17 - CONCLUSION: 1. Evidence of moderate to large joint effusion. 2. No acute fracture or malalignment. 3. Mild 3 compartment osteoarthritic change. Benjamin Person MD Hip and Pelvis X-Ray [id number]/22/[id number] Signed Impressions: Service Date/Time: Sunday, January 22, 2017 21:10 - CONCLUSION: 1. Mild to moderate degenerative change of both hips with no acute fracture or malalignment. There is flattening and remodeling of the right humeral head. Benjamin Person MD Objective Remarks GENERAL: 62-year-old male, critically ill currently orotracheally intubated HEENT: Normocephalic. Atraumatic. Pupils equal, round, reactive, conjugate by 3 mm bilaterally. NECK: Trachea is midline. Obese. No JVD or thyromegaly right IJ Cordis and left subclavian TLC, left IJ hemodialysis catheter clean dry and intact CHEST: Diminished breath sounds. Right-sided chest tube -20 cm H2O. 100 cc serosanguineous CARDIOVASCULAR: Tachycardia, RR. S1, S2 no S4. ABDOMEN: Distended. Firm to palpation. No bowel sounds are appreciated. Umbilical hernia is reducible. MUSCULOSKELETAL: Pulses 2+. Trace to 1+ bilateral upper and lower extremity edema. Wound VAC in left upper extremity NEUROLOGICAL: Currently sedated and paralyzed on cisatracurium drip. Procedures IVC filter placement 01/25/2017 LP 01/26/2017 Line: Central Venous Catheter Side: Left Location: Subclavian A/P Problem List: (1) Septic shock ICD Code: A41.9 - Sepsis, unspecified organism; R65.21 - Severe sepsis with septic shock Status: Acute (2) Acute respiratory failure ICD Code: J96.00 - Acute respiratory failure, unspecified whether with hypoxia or hypercapnia Status: Acute (3) Thrombophlebitis arm ICD Code: I80.8 - Phlebitis and thrombophlebitis of other sites (4) Aspiration pneumonia ICD Code: J69.0 - Pneumonitis due to inhalation of food and vomit Status: Acute (5) Atelectasis of left lung ICD Code: J98.11 - Atelectasis Status: Acute (6) Quadriparesis ICD Code: G82.50 - Quadriplegia, unspecified Status: Acute (7) DVT (deep venous thrombosis) ICD Code: I82.409 - Acute embolism and thrombosis of unspecified deep veins of unspecified lower extremity (8) Altered mental status ICD Code: R41.82 - Altered mental status, unspecified Status: Acute (9) CKD (chronic kidney disease) stage 3, GFR 30-59 ml/min ICD Code: N18.3 - Chronic kidney disease, stage 3 (moderate) Status: Chronic (10) Acute renal failure ICD Code: N17.9 - Acute kidney failure, unspecified Status: Acute (11) Diabetes mellitus ICD Code: E11.9 - Type 2 diabetes mellitus without complications Status: Chronic (12) Distal end of ulna fracture, closed ICD Code: S52.609A - Unspecified fracture of lower end of unspecified ulna, initial encounter for closed fracture Status: Acute (13) Gout ICD Code: M10.9 - Gout, unspecified Status: Chronic Assessment and Plan NEURO/PSYCH: Acute metabolic encephalopathy Quadriparesis secondary to suspected transverse myelitis Recurrent falls Patient is currently on Midazolam drip at 7 mg an hour and fentanyl drip at 75 g per minute propofol drip at 50 mg/kg per minute and cisatracurium at 4 g per kilogram per minute for sedation/paralysis Goal of RA SS -5. Can wean to -2 today. [id number] 1 out of 4 Suspected transverse myelitis. Received methylprednisolone 250 mg IV every 6 hours 01/27-02/02, started back on hydrocortisone 02/21/17, initially tapering to 50 mg IV every 8 hours starting received 1 dose at 2100 prior to becoming hypotensive. Currently back on 100 mg IV every 8 hours LP 01/26 and 02/01. CSF culture negative 01/26, 02/01 Oligoclonal bands negative. CSF/serum IgG index is not elevated. VDRL nonreactive. Cryptococcal antigen negative. Brain MRI 01/23 no acute stroke. Few scattered lacunar infarcts of the brainstem. Moderate chronic white matter changes. MRI cervical/thoracic spine- mild spinal stenosis C3/C4 to C6/C7. No cord compression. RPR negative Neurology has been following, Dr. Crenshaw. Repeat CT brain 02/10 - negative Continue PT/OT Plan discontinue cisatracurium drip today. Letter pressures within normal limits. RESP: Acute hypoxemic respiratory failure Healthcare associated pneumonia/Aspiration Pneumonia Right-sided chest tube [facility] for [facility] effusion. [facility] Ventilator bundle Albuterol/ipratropium aerosols every 6 hours with albuterol aerosols every 2 hours. Dyspnea Spontaneous breathing trials not indicated on paralysis VQ scan 02/10 low probability for PE. CT chest 02/10 - left lower lobe collapse and consolidation. CT chest 02/27 revealed right greater than left pleural effusions. Extubated 02/23. Intubated 02/28 Right-sided chest tube placement 02/28 hand washer. -20 cm water. 60 cc serosanguineous output. CV: Severe sepsis Systolic heart failure likely chronic with ejection fraction 20-25% Hyperlipidemia History of hypertension Mild TR Elevated troponin likely type II demand ischemia Currently on norepinephrine at 3 g per minute to maintain mean arterial pressure greater than or equal to 65 Holding metoprolol and amlodipine in light of current hypotension. Discontinue atorvastatin 10 mg by mouth daily for dyslipidemia. Cardiac index 2.4. SVV 14 Troponin 0.[address]-T changes. Patient denying chest discomfort. 2-D echocardiogram 01/11 revealed EF 20-25%. Per to really reduce left ventricular systolic function. Mild TR. Pulmonary arterial pressures were normal around 20 Troponin currently 6.5 by. Trending downward. Likely will need stress test of heart once stable. Cannot anticoagulate due to retroperitoneal hematoma the present time GI: Large right retroperitoneal hematoma Severe protein energy malnutrition Nausea/vomiting Diarrhea Gastritis Diverticulosis Internal and external hemorrhoids Hiatal hernia Elevated lipase 02/27 CT chest/abdomen and pelvis - 9.4 x 7.5 renal and 16 x 12 cm right psoas muscle hematoma. Fluid around liver and spleen. Right-sided nephrolithiasis CTA abdomen 02/28 - possible blushing around iliac/lumbar vessels Discussed with IR. We'll attempt embolization today due to use severe acute illness. CT abdomen and pelvis 02/10 atrophic left kidney. Bilateral inguinal hernias fat- containing. Nonobstructing 12 mm right kidney stone repeat CT abd/pelvis did not show evidence of obstruction. patient clinically has been having diarrhea (c. diff negative 02/19). also with nausea/vomiting of unclear etiology. EGD/Colonoscopy-02/22/17 showed gastritis esophagitis, hiatal hernia, diverticulosis and multiple polyps in descending colon and sigmoid which were snared biopsied. Biopsy pending Check C. difficile Holding cholestyramine 4 g every 12 hours for diarrhea Dicyclomine 20 mg 3 times a day Measuring intra-abdominal pressures every [address]. [address] Lewis consulted for intervention if needed We'll start on trickle feeds with Nepro 10 cc an hour today FEN/RENAL: Acute kidney injury in the setting of Chronic kidney disease stage 3-4 History of uric acid kidney stones with prior stent BPH Nonfunctioning left kidney Sloan placed due to urinary retention and worsening creatinine. Monitor intake and output q1hr. Monitor electrolytes. RIOS/SPEP negative. 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 Recommended nephrostomy tube if obstruction Nephrology consult for possible hemodialysis Due to acute illness holding tamsulosin 0.4 mg by mouth daily for BPH ID: Septic shock- Abscess and Suppurative thrombophlebitis left upper extremity MSSA bacteremia Klebsiella UTI ESBL positive Acute aspiration pneumonia/HCAP Broad-spectrum antibiotics with oxacillin 2 g IV every 4 hours till March 26 initially. This is been held in light of current change to regimen to fluconazole, ertapenem Blood cultures 2, UA ESBL positive Klebsiella UTI ID on board. f/u cultures form 02/20/17 blood, sputum, urine cultures-all negative to date HEME: Acute blood loss anemia DVT, bilateral posterior tibial vein, IVC filter Septic thrombophlebitis with occlusive thrombus mid cephalic and basilic vein side Received 10 PRBC, 14 FFP, 2 platelets, 1 cryo-02/28 Past 24 hours received 3 units PRBCs Serial hemoglobins every 6 hours Recheck coags Ultrasound 01/23/17 - Bilateral lower extremity with occlusive posterior tibial vein DVTs. Heparin was initially started for DVT but was placed on hold due to LP with suspected traumatic tap. Currently holding full anticoagulation with enoxaparin 100 mg IV twice a day due to anemia as of 02/26 IVC filter was placed 01/25/17. Ultrasound LUE 02/10 occlusive thrombus mid cephalic vein, basilic vein.s. Transfuse 3 units PRBCs 02/27 Transfuse 2 units PRBCs 03/01. ENDO: Diabetes mellitus Hypoglycemia History of prior adrenal insufficiency with shock Gout EGD colonoscopy completed 02/22. gastritis and esophagitis, colon polyps Started Hydrocortisone 100 mg IV q8hr 02/21/17 (Recent high dose steroids use now hypotensive, hypoglycemic) Accu-Cheks to maintain euglycemia Novulin R every 4 hours MSK: Right distal ulna fracture. Dr. Nathan with orthopedics has evaluated and recommended nonoperative management. Right wrist splint in place. PROPH: Pantoprazole 40 mg IV twice a day for stress ulcer prophylaxis. Has IVC filter. Therapeutic enoxaparin currently on hold ACCESS: Left subclavian CVL placed 02/20. Right IJ Cortis placed 02/28. Right radial arterial line placed 02/28. A left IJ hemodialysis catheter placed 03/01. Critical Care: The total critical care time was 35 minutes. Time to perform other separately billable procedures was not included in the critical care time. Problem Qualifiers (1) Aspiration pneumonia: (2) DVT (deep venous thrombosis): Qualified Codes: I82.443 - Acute embolism and thrombosis of tibial vein, bilateral (3) Acute renal failure: Qualified Codes: N17.9 - Acute kidney failure, unspecified (4) Diabetes mellitus: (5) Gout: Janes Aguira MD Mar 02, 2017 09:57
[2017-03-02] MEDS ORDERED: VANCOMYCIN 1,000 MG/NS 250 ML IV ONE ×2 (10:00)
--- NOTE | 2017-03-02 10:02 | HHI.NPPN ---
Subjective History of Present Illness 61-year-old with history of urinary stone Additional Remarks Patient had retroperitoneal bleed became unstable on vent UOP dropped Review of Systems General Constitutional: Fatigue Objective Data Data 03/02/17 03/03/17 19:00 07:00 Intake Total 313.6 ml Balance 313.6 ml IV Total 313.6 ml Vital Signs Date Time Temp Pulse Resp B/P (MAP) Pulse Ox O2 Delivery O2 Flow Rate FiO2 03/02/17 08:00 96.0 82 16 124/76 (92) 100 Automatic Cuff 03/02/17 08:00 40 03/02/17 08:00 82 03/02/17 07:58 100 40 03/02/17 07:00 100 Mechanical Ventilator 40 03/02/17 06:00 80 03/02/17 04:00 40 03/02/17 04:00 97.4 84 16 120/73 (89) 100 03/02/17 04:00 84 03/02/17 03:23 100 40 03/02/17 02:00 92 03/02/17 00:00 97.4 80 16 122/72 (89) 100 03/02/17 00:00 40 03/02/17 00:00 80 03/01/17 23:57 99 Ventilator 03/01/17 23:52 99 40 03/01/17 22:00 82 03/01/17 20:28 100 40 03/01/17 20:00 82 03/01/17 20:00 97.7 82 16 150/86 (107) 100 03/01/17 20:00 40 03/01/17 19:00 100 Mechanical Ventilator 40 03/01/17 18:00 74 03/01/17 16:14 98.1 87 16 123/73 100 03/01/17 16:00 40 03/01/17 16:00 98.5 90 16 117/68 (84) 100 03/01/17 16:00 91 03/01/17 15:53 98.5 89 16 95/59 100 03/01/17 15:52 98.5 93 16 95/59 100 03/01/17 15:18 100 40 03/01/17 14:00 79 03/01/17 12:00 98.0 85 16 101/59 (73) 100 03/01/17 12:00 40 03/01/17 12:00 85 03/01/17 10:47 100 40 -: 03/02/17 0544 03/01/17 2200 Physical Exam General Appearance: Pale Eyes Eye Exam: Pupils Equal Throat Throat Exam: Oral Mucosa Mccord & Moist Neck Neck Exam: Neck Supple Pulmonary Resp Exam: Crackles, Rhonchi, Decreased Bases, Diminished Breath Sounds Cardiology CV Exam: Normal Sinus Rhythm, Tachycardia Gastrointestinal/Abdomen GI Exam: Non-Tender, Distended Extremeties Extremities Exam: Moderate Edema Assessment/Plan Problem List: (1) Acute renal failure ICD Codes: N17.9 - Acute kidney failure, unspecified Status: Acute Plan: Patient developed Hypotension,sepsis staph aureus respiratory failure and increase WBC. 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 (2) CKD (chronic kidney disease) stage 3, GFR 30-59 ml/min ICD Codes: N18.3 - Chronic kidney disease, stage 3 (moderate) Status: Chronic Plan: Ultrasound revealed chronic kidney disease there is no kidney stones (3) Diabetes ICD Codes: E11.9 - Type 2 diabetes mellitus without complications Plan: Continue to monitor (4) Distal end of ulna fracture, closed ICD Codes: S52.609A - Unspecified fracture of lower end of unspecified ulna, initial encounter for closed fracture Status: Acute Plan: Orthopedic is following Problem Qualifiers (1) Acute renal failure: Qualified Codes: N17.9 - Acute kidney failure, unspecified Laura Liao MD Mar 02, 2017 10:02
[2017-03-02] MEDS: fentaNYL DRIP 250 ML IV PRN (10:27)
[2017-03-02] MEDS: PANTOPRAZOLE SODIUM 40 MG VIAL IV PUSH SCH ×2 (10:27→23:17)
[2017-03-02] MEDS: SODIUM CHLOR 0.9% 1000 ML INJ 1,000 ML IV SCH (12:20)
[2017-03-02] MEDS: MIDAZOLAM 100 MG/100 ML INJ 100 ML IV PRN (12:21)
[2017-03-02 12:31] LABS: BICARBONATE 17.6 MEQ/L (21.0-32.0); POTASSIUM 3.4 MEQ/L (3.5-5.1)
[2017-03-02 12:43] LABS: CALCIUM-PROTEIN CORRECTED 8.8 MG/DL (8.5-10.1)
[2017-03-02] MEDS: SODIUM CHLOR 0.9% 1000 ML INJ 1,000 ML OTHER PRN (13:00)
[2017-03-02] MEDS: GENTAMICIN SULFATE (DIALYSIS USE ONLY) 20 MG/2 ML VIAL OTHER PRN (13:00)
[2017-03-02] MEDS: HEPARIN SODIUM - IV 10,000 UNITS/10 ML VIAL PRN (13:00)
[2017-03-02] MEDS: ALBUMIN 25% INJ 100 ML IV PRN (13:00)
[2017-03-02] MEDS: MANNITOL 12.5 GM/50 ML VIAL IV PRN (13:00)
--- NOTE | 2017-03-02 15:37 | HHI.IDPN ---
Subjective Subjective Remarks Patient is a 62-year-old male, admitted to the hospital for evaluation of pain in his right wrist. He gave a history of falling about a week ago and apparently had immediate pain in the right wrist. He did not seek any medical attention initially because reportedly he was very busy. He eventually presented, and he was found to have a distal ulnar fracture on plain films. He also had some redness and swelling. Orthopedics saw the patient, and was being treated conservatively with the splint. During this hospitalization also he started complaining of generalized weakness but more so in his lower extremity than his upper extremity. He had swelling in both lower extremity which revealed evidence of DVT in the posterior tibial veins. Neurology had seen the patient and he underwent lumbar puncture which apparently was traumatic. Patient was therefore not given anticoagulation because of the traumatic LP, and he underwent placement of an IVC filter on January 25. Patient had another lumbar puncture on February 01. He was felt to have transverse myelitis, and he was given high-dose IV Solu-Medrol from January 27 to February 02. There was apparently some improvement in his weakness. The imaging studies done for his weakness showed some spinal stenosis, and neurosurgery was consult that and recommended that there was no surgical intervention to be done. Patient has been stabilizing, but last night apparently deteriorated, and he ended up getting intubated, and had significant hypotension requiring pressors. There was also an ultrasound done of his left upper extremity which showed DVT, and there was evidence of superior 2 thrombophlebitis. Vascular surgery was consult to it and he had IND on his left upper extremity. Patient has had some fevers since yesterday. 2 blood cultures were done yesterday and they're now reported as growing gram-positive cocci in [place] in clusters. He is currently sedated and intubated. He is on Levophed and vasopressin. A central line was placed as well as a femoral a line. He apparently had an IV in his left upper extremity and that was removed yesterday. Patient also has history of chronic kidney disease, and nephrology evaluated the patient. He was just being monitored for his renal insufficiency. Infectious disease consultation has been requested to evaluate the patient. Notes reviewed D/W RN Hypothermic this morning - on warming blanket On levophed Started on HD yesterday, getting 2nd HD this afternoon Sedated Received 2 more units PRBC yesterday afternoon, Hgb went down to 7.9, seems vanna have stabilized Has large R retroperitoneal hematoma and had coiling of bleeder yesterday Has line RIJ, and line LSC Has CT on R UC with Kleb ESBL BC negative so far Antibiotics Vancomycin Invanz Diflucan Lines TLC Vascath Past Medical History Reviewed Allergies: Coded Allergies: levofloxacin (Verified Allergy, Severe, 01/22/17) Objective . Vital Signs Date Time Temp Pulse Resp B/P (MAP) Pulse Ox O2 Delivery O2 Flow Rate FiO2 03/02/17 14:36 100 40 03/02/17 12:00 96.7 87 16 94/63 (73) 100 03/02/17 12:00 40 03/02/17 12:00 87 03/02/17 10:55 98 40 03/02/17 10:00 84 03/02/17 08:00 96.0 82 16 124/76 (92) 100 Automatic Cuff 03/02/17 08:00 40 03/02/17 08:00 82 03/02/17 07:58 100 40 03/02/17 07:00 100 Mechanical Ventilator 40 03/02/17 06:00 80 03/02/17 04:00 40 03/02/17 04:00 97.4 84 16 120/73 (89) 100 03/02/17 04:00 84 03/02/17 03:23 100 40 03/02/17 02:00 92 03/02/17 00:00 97.4 80 16 122/72 (89) 100 03/02/17 00:00 40 03/02/17 00:00 80 03/01/17 23:57 99 Ventilator 03/01/17 23:52 99 40 03/01/17 22:00 82 03/01/17 20:28 100 40 03/01/17 20:00 82 03/01/17 20:00 97.7 82 16 150/86 (107) 100 03/01/17 20:00 40 03/01/17 19:00 100 Mechanical Ventilator 40 03/01/17 18:00 74 03/01/17 16:14 98.1 87 16 123/73 100 03/01/17 16:00 40 03/01/17 16:00 98.5 90 16 117/68 (84) 100 03/01/17 16:00 91 03/01/17 15:53 98.5 89 16 95/59 100 03/01/17 15:52 98.5 93 16 95/59 100 03/02/17 03/02/17 03/03/17 15:00 23:00 07:00 Intake Total 1113.6 ml Balance 1113.6 ml IV Total 1113.6 ml . Laboratory Tests Test 02/28/17 16:00 02/28/17 21:01 03/01/17 04:00 03/01/17 05:40 Hemoglobin 7.7 GM/DL 9.5 GM/DL 9.6 GM/DL 9.4 GM/DL Hematocrit 22.0 % 27.7 % 27.7 % 27.6 % White Blood Count 12.3 TH/MM3 16.1 TH/MM3 Red Blood Count 3.21 MIL/MM3 3.18 MIL/MM3 Mean Corpuscular Volume 86.1 FL 86.6 FL Mean Corpuscular Hemoglobin 29.6 PG 29.7 PG Mean Corpuscular Hemoglobin Concent 34.4 % 34.3 % Red Cell Distribution Width 14.9 % 15.0 % Platelet Count 72 TH/MM3 74 TH/MM3 Mean Platelet Volume 8.4 FL 8.5 FL Neutrophils (%) (Auto) 92.7 % Lymphocytes (%) (Auto) 2.6 % Monocytes (%) (Auto) 4.6 % Eosinophils (%) (Auto) 0.0 % Basophils (%) (Auto) 0.1 % Neutrophils # (Auto) 15.0 TH/MM3 Lymphocytes # (Auto) 0.4 TH/MM3 Monocytes # (Auto) 0.7 TH/MM3 Eosinophils # (Auto) 0.0 TH/MM3 Basophils # (Auto) 0.0 TH/MM3 CBC Comment AUTO DIFF Differential Total Cells Counted 100 Neutrophils % (Manual) 88 % Band Neutrophils % 4 % Lymphocytes % 2 % Monocytes % 3 % Neutrophils # (Manual) 15.3 TH/MM3 Metamyelocytes 1 % Myelocytes 2 % Differential Comment FINAL DIFF MANUAL Platelet Estimate LOW Platelet Morphology Comment NORMAL Red Cell Morphology Comment NORMAL Test 03/01/17 10:00 03/01/17 14:00 03/01/17 18:00 03/01/17 22:00 Hemoglobin 8.7 GM/DL 7.9 GM/DL 10.3 GM/DL 9.9 GM/DL Hematocrit 25.4 % 23.2 % 30.3 % 28.7 % White Blood Count 13.3 TH/MM3 15.8 TH/MM3 Red Blood Count 2.67 MIL/MM3 3.36 MIL/MM3 Mean Corpuscular Volume 87.0 FL 85.5 FL Mean Corpuscular Hemoglobin 29.5 PG 29.4 PG Mean Corpuscular Hemoglobin Concent 33.9 % 34.4 % Red Cell Distribution Width 15.3 % 14.8 % Platelet Count 58 TH/MM3 53 TH/MM3 Mean Platelet Volume 8.9 FL 8.9 FL Test 03/02/17 05:44 White Blood Count 16.9 TH/MM3 Red Blood Count 3.14 MIL/MM3 Hemoglobin 9.4 GM/DL Hematocrit 26.9 % Mean Corpuscular Volume 85.6 FL Mean Corpuscular Hemoglobin 29.9 PG Mean Corpuscular Hemoglobin Concent 34.9 % Red Cell Distribution Width 15.5 % Platelet Count 56 TH/MM3 Mean Platelet Volume 9.1 FL Neutrophils (%) (Auto) 92.8 % Lymphocytes (%) (Auto) 2.5 % Monocytes (%) (Auto) 4.5 % Eosinophils (%) (Auto) 0.0 % Basophils (%) (Auto) 0.2 % Neutrophils # (Auto) 15.7 TH/MM3 Lymphocytes # (Auto) 0.4 TH/MM3 Monocytes # (Auto) 0.8 TH/MM3 Eosinophils # (Auto) 0.0 TH/MM3 Basophils # (Auto) 0.0 TH/MM3 CBC Comment AUTO DIFF Differential Total Cells Counted 100 Neutrophils % (Manual) 95 % Band Neutrophils % 2 % Lymphocytes % 1 % Monocytes % 1 % Neutrophils # (Manual) 16.6 TH/MM3 Metamyelocytes 1 % Differential Comment FINAL DIFF MANUAL Platelet Estimate LOW Platelet Morphology Comment NORMAL Laboratory Tests Test 02/28/17 16:00 02/28/17 23:30 03/01/17 05:40 03/01/17 06:00 Blood Urea Nitrogen 24 MG/DL 25 MG/DL Creatinine 1.90 MG/DL 2.07 MG/DL Random Glucose 235 MG/DL 211 MG/DL Calcium Level 7.8 MG/DL 7.1 MG/DL Phosphorus Level 4.9 MG/DL 5.4 MG/DL Magnesium Level 1.9 MG/DL 1.8 MG/DL Sodium Level 144 MEQ/L 144 MEQ/L Potassium Level 3.5 MEQ/L 3.6 MEQ/L Chloride Level 112 MEQ/L 112 MEQ/L Carbon Dioxide Level 20.1 MEQ/L 18.9 MEQ/L Anion Gap 12 MEQ/L 13 MEQ/L Estimat Glomerular Filtration Rate 36 ML/MIN 33 ML/MIN Lactic Acid Level 1.2 mmol/L 1.1 mmol/L 1.0 mmol/L Total Creatine Kinase 273 U/L 155 U/L Total Protein 4.6 GM/DL Albumin 2.2 GM/DL Alkaline Phosphatase 60 U/L Aspartate Amino Transf (AST/SGOT) 34 U/L Alanine Aminotransferase (ALT/SGPT) 17 U/L Total Bilirubin 0.3 MG/DL Protein Corrected Calcium 8.5 MG/DL Amylase Level 174 U/L Lipase 1499 U/L Ammonia 22 MCMOL/L Test 03/01/17 10:00 03/01/17 14:00 03/01/17 22:00 03/02/17 05:44 Lactic Acid Level 0.8 mmol/L 0.9 mmol/L 0.8 mmol/L Blood Urea Nitrogen 28 MG/DL 22 MG/DL Creatinine 2.14 MG/DL 1.77 MG/DL Random Glucose 211 MG/DL 198 MG/DL Total Protein 4.4 GM/DL 4.5 GM/DL Calcium Level 6.4 MG/DL 6.6 MG/DL Sodium Level 146 MEQ/L 145 MEQ/L Potassium Level 3.4 MEQ/L 3.2 MEQ/L Chloride Level 114 MEQ/L 112 MEQ/L Carbon Dioxide Level 19.8 MEQ/L 21.2 MEQ/L Anion Gap 12 MEQ/L 12 MEQ/L Estimat Glomerular Filtration Rate 31 ML/MIN 39 ML/MIN Protein Corrected Calcium 7.8 MG/DL 7.9 MG/DL Albumin 1.8 GM/DL Phosphorus Level 4.6 MG/DL Magnesium Level 1.8 MG/DL Alkaline Phosphatase 63 U/L Aspartate Amino Transf (AST/SGOT) 20 U/L Alanine Aminotransferase (ALT/SGPT) 15 U/L Total Bilirubin 0.3 MG/DL Total Creatine Kinase 105 U/L Troponin I 10.10 NG/ML 6.55 NG/ML Amylase Level 102 U/L Lipase 751 U/L Ammonia 23 MCMOL/L Test 03/02/17 07:55 Blood Urea Nitrogen 24 MG/DL Creatinine 1.83 MG/DL Random Glucose 189 MG/DL Total Protein 4.5 GM/DL Calcium Level 7.3 MG/DL Sodium Level 144 MEQ/L Potassium Level 3.4 MEQ/L Chloride Level 112 MEQ/L Carbon Dioxide Level 17.6 MEQ/L Anion Gap 14 MEQ/L Estimat Glomerular Filtration Rate 38 ML/MIN Protein Corrected Calcium 8.8 MG/DL Imaging Chest X-Ray 03/02/17 0600 Signed Impressions: Service Date/Time: Thursday, March 02, 2017 01:56 - CONCLUSION: 1. Supine apparatus in good position. Bilateral space disease, left greater than right. Left-sided pleural effusion similar to prior exam. Trace Holloway MD Aortography 02/28/17 0000 Signed Impressions: Service Date/Time: Tuesday, February 28, 2017 08:01 - CONCLUSION: 1. Active hemorrhage from distal right lateral sacral and iliolumbar branches successfully coil and Gelfoam embolized, as above. Juan Bhakta MD Abdomen/Pelvis CT 02/28/17 0000 Signed Impressions: Service Date/Time: Tuesday, February 28, 2017 06:51 - CONCLUSION: 1. The right retroperitoneal hematoma has increased in size, as above. There are 2 serpiginous arterially enhancing structures visualized, one in the right psoas muscle and another extending into the hematoma at the right iliac fossa. These could represent sites of continued active bleeding. 2. Stable moderate size left and small right pleural effusion with associated compressive atelectasis. 3. Stable small volume of free fluid in the abdomen and pelvis. There is also anasarca. The findings concerning the retroperitoneal hematoma were discussed with Dr. Aguiar via telephone at approximately 7: 10 AM on 02/28/2017. Angelo Allen MD Chest CT 02/27/17 0000 Signed Impressions: Service Date/Time: Monday, February 27, 2017 18:12 - CONCLUSION: 1. Bilateral pleural effusions with bibasilar atelectasis, left greater than right. Tom Sanchez MD Abdomen X-Ray 02/26/17 0000 Signed Impressions: Service Date/Time: Sunday, February 26, 2017 14:52 - CONCLUSION: 1. Nonobstructive bowel gas pattern. Juan Bhakta MD Upper Extremity Ultrasound 02/10/17 0000 Signed Impressions: Service Date/Time: Friday, February 10, 2017 18:46 - CONCLUSION: Occlusive thrombus in the cephalic and basilic veins. Benjamin Person MD Lung Scan-V Nuclear Medicine 02/10/17 Signed Impressions: Service Date/Time: Friday, February 10, 2017 22:17 - CONCLUSION: Low probability pulmonary embolism. Candido Patton MD Head CT 02/10/17 Signed Impressions: Service Date/Time: Friday, February 10, 2017 23:51 - CONCLUSION: Negative noncontrast CT brain. Candido Patton MD Wrist X-Ray 02/06/17 Signed Impressions: Service Date/Time: Monday, February 06, 2017 12:50 - CONCLUSION: Minimally displaced distal radius and ulnar fractures. Armando Dodd MD Lumbar Puncture Fluoroscopy 02/01/17 Signed Impressions: Service Date/Time: January 09:35 - CONCLUSION: Uncomplicated fluoroscopically guided lumbar puncture. CSF was clear. Nabeel Peralta MD Head Magnetic Resonance Angiography 01/27/17 Signed Impressions: Service Date/Time: Friday, January 27, 2017 10:33 - CONCLUSION: No intracranial vascular abnormality is identified. There is no aneurysm visualized. nAgelo Allen MD IVC Filter Placement X-Ray 01/25/17 Signed Impressions: Service Date/Time: January 10:29 - CONCLUSION: Uncomplicated inferior vena cava filter placement as above. Yung Fowler MD Thoracic Spine MRI 01/24/17 Signed Impressions: Service Date/Time: Tuesday, January 24, 2017 22:29 - CONCLUSION: 1. Mild degenerative spondylosis most prominently at T11-L1 with slight effacement of the anterior thecal sac and left lateral recess. No significant neural foraminal stenosis. 2. No acute fracture. Juan Bhakta MD Renal Ultrasound 01/23/17 Signed Impressions: Service Date/Time: Monday, January 23, 2017 08:53 - CONCLUSION: 1. Evidence of chronic parenchymal disease of both kidneys. No obstructive uropathy or other acute abnormality demonstrated. 2. Trace ascites, nonspecific. Angelo Garrido MD Lumbar Spine MRI 9/5/17 0000 Signed Impressions: Service Date/Time: Monday, January 23, 2017 17:01 - CONCLUSION: 1. At L4-5 is a broad-based disc protrusion with severe central canal and lateral recess stenosis and flattening of the exiting right L4 nerve root. 2. L5-S1 there is a disc protrusion and moderate stenosis with flattening of the exiting L5 nerve roots bilaterally. 3. At L3-4 there is a moderate to severe central stenosis and lateral recess stenosis with mild foraminal stenosis. 4. No acute fracture or spondylolisthesis. Trace Holloway MD Lower Extremity Ultrasound 01/23/17 Signed Impressions: Service Date/Time: Monday, January 23, 2017 09:53 - CONCLUSION: Bilateral focal lower extremity DVT involving the posterior tibial veins. Angelo Garrido MD Cervical Spine MRI 01/23/17 Signed Impressions: Service Date/Time: Monday, January 23, 2017 17:01 - CONCLUSION: 1. Multilevel cervical spine degenerative changes as above. 2. Mild degrees of spinal stenosis at C3/C4-C6/C7. No cord compression or cord signal abnormality. 3. Age indeterminate left paracentral/foraminal disc protrusion at C6/C7. 4. Multilevel foraminal stenosis, most severe on the left at C6/C7. Please see individual levels above. 5. No fracture or subluxation of the cervical spine. Angelo Garrido MD Brain MRI 01/23/17 Signed Impressions: Service Date/Time: Monday, January 23, 2017 17:01 - CONCLUSION: 1. No acute stroke or other acute intracranial abnormality demonstrated. 2. Moderate severity chronic white matter changes, nonspecific but most likely related to chronic small vessel disease. 3. Few scattered tiny lacunar infarcts of the brainstem. 4. Given the findings are not entirely specific, clinical evaluation for possible multiple sclerosis recommended. Angelo Garrido MD Knee X-Ray [id number]/22/[id number] Signed Impressions: Service Date/Time: Sunday, January 22, 2017 21:17 - CONCLUSION: 1. Evidence of moderate to large joint effusion. 2. No acute fracture or malalignment. 3. Mild 3 compartment osteoarthritic change. Benjamin Person MD Hip and Pelvis X-Ray [id number]/[id number] Signed Impressions: Service Date/Time: Sunday, January 22, 2017 21:10 - CONCLUSION: 1. Mild to moderate degenerative change of both hips with no acute fracture or malalignment. There is flattening and remodeling of the right humeral head. Benjamin Person MD Chest X-Ray 02/24/[id number] Signed Impressions: Service Date/Time: Friday, February 24, 2017 03:58 - CONCLUSION: 1. Unchanged left lower lobe infiltrate with small effusion. Candido Mendoza Jr., MD Chest X-Ray 02/20/17 Signed Impressions: Service Date/Time: Monday, February 20, 2017 11:36 - CONCLUSION: 1. Stable very small right and small left pleural effusions with left lower lobe airspace consolidation. 2. No significant interval change. Juan Bhakta MD Abdomen/Pelvis CT 02/19/17 Signed Impressions: Service Date/Time: Sunday, February 19, 2017 19:09 - CONCLUSION: 1. Areas of calcification seen in the right renal collecting system, right renal pelvis, and proximal right ureter. These appear to layer and be dependent suggesting likely to represent smaller areas of milk of calcium or small stones. There is mild dilatation of the right renal collecting system and right ureter. A definite obstructing stone at this time is not seen. 2. A small amount of air within the urinary bladder. This should be correlated with any recent catheterization. 3. Mild bilateral pleural effusions with accompanying atelectasis or consolidation at the left base. The consolidation was present previously. 4. Prominent degenerative change in the lumbar spine and at the hip joints bilaterally. Angelo Manzo MD Chest X-Ray 02/12/17 0600 Signed Impressions: Service Date/Time: Sunday, February 12, 2017 03:32 - CONCLUSION: 1. Support apparatus in good position. Relatively stable basilar airspace disease and pleural effusions. Trace Holloway MD Upper Extremity Ultrasound 02/10/17 Signed Impressions: Service Date/Time: Friday, February 10, 2017 18:46 - CONCLUSION: Occlusive thrombus in the cephalic and basilic veins. Benjamin Person MD Lung Scan-V Nuclear Medicine 02/10/17 Signed Impressions: Service Date/Time: Friday, February 10, 2017 22:17 - CONCLUSION: Low probability pulmonary embolism. Candido Patton MD Head CT 9/23/17 0000 Signed Impressions: Service Date/Time: Friday, February 10, 2017 23:51 - CONCLUSION: Negative noncontrast CT brain. Candido Patton MD Chest CT 02/10/17 Signed Impressions: Service Date/Time: Friday, February 10, 2017 23:56 - CONCLUSION: Left lower lobe collapse with consolidation. Patchy infiltrates the medial right lower lung. Candido Patton MD Abdomen/Pelvis CT 02/10/17 Signed Impressions: Service Date/Time: Friday, February 10, 2017 23:59 - CONCLUSION: 1. Nonobstructing 12 mm calcified stone lower pole right kidney. 2. Atrophic left kidney with significant cortical thinning. 3. Bilateral fat-containing inguinal hernias, large on the right, and moderate on the left. 4. Consolidative collapse of the left lower lobe. Candido Patton MD Abdomen X-Ray 02/10/17 0000 Signed Impressions: Service Date/Time: Friday, February 10, 2017 08:14 - CONCLUSION: No acute abdominal abnormality is identified. Angelo Allen MD Wrist X-Ray 02/06/17 0000 Signed Impressions: Service Date/Time: Monday, February 06, 2017 12:50 - CONCLUSION: Minimally displaced distal radius and ulnar fractures. Armando Dodd MD Lumbar Puncture Fluoroscopy 02/01/17 0000 Signed Impressions: Service Date/Time: January 09:35 - CONCLUSION: Uncomplicated fluoroscopically guided lumbar puncture. CSF was clear. Nabeel Peralta MD Head Magnetic Resonance Angiography 01/27/17 0000 Signed Impressions: Service Date/Time: Friday, January 27, 2017 10:33 - CONCLUSION: No intracranial vascular abnormality is identified. There is no aneurysm visualized. Angelo Allen MD IVC Filter Placement X-Ray 01/25/17 0000 Signed Impressions: Service Date/Time: January 10:29 - CONCLUSION: Uncomplicated inferior vena cava filter placement as above. Yung Fowler MD Thoracic Spine MRI 01/24/17 0000 Signed Impressions: Service Date/Time: Tuesday, January 24, 2017 22:29 - CONCLUSION: 1. Mild degenerative spondylosis most prominently at T11-L1 with slight effacement of the anterior thecal sac and left lateral recess. No significant neural foraminal stenosis. 2. No acute fracture. Juan Bhakta MD Renal Ultrasound 01/23/17 0000 Signed Impressions: Service Date/Time: Monday, January 23, 2017 08:53 - CONCLUSION: 1. Evidence of chronic parenchymal disease of both kidneys. No obstructive uropathy or other acute abnormality demonstrated. 2. Trace ascites, nonspecific. Angelo Garrido MD Lumbar Spine MRI 01/23/17 0000 Signed Impressions: Service Date/Time: Monday, January 23, 2017 17:01 - CONCLUSION: 1. At L4-5 is a broad-based disc protrusion with severe central canal and lateral recess stenosis and flattening of the exiting right L4 nerve root. 2. L5-S1 there is a disc protrusion and moderate stenosis with flattening of the exiting L5 nerve roots bilaterally. 3. At L3-4 there is a moderate to severe central stenosis and lateral recess stenosis with mild foraminal stenosis. 4. No acute fracture or spondylolisthesis. Trace Holloway MD Lower Extremity Ultrasound 01/23/17 0000 Signed Impressions: Service Date/Time: Monday, January 23, 2017 09:53 - CONCLUSION: Bilateral focal lower extremity DVT involving the posterior tibial veins. Angelo Garrido MD Cervical Spine MRI 01/23/17 0000 Signed Impressions: Service Date/Time: Monday, January 23, 2017 17:01 - CONCLUSION: 1. Multilevel cervical spine degenerative changes as above. 2. Mild degrees of spinal stenosis at C3/C4-C6/C7. No cord compression or cord signal abnormality. 3. Age indeterminate left paracentral/foraminal disc protrusion at C6/C7. 4. Multilevel foraminal stenosis, most severe on the left at C6/C7. Please see individual levels above. 5. No fracture or subluxation of the cervical spine. Angelo Garrido MD Brain MRI 01/23/17 0000 Signed Impressions: Service Date/Time: Monday, January 23, 2017 17:01 - CONCLUSION: 1. No acute stroke or other acute intracranial abnormality demonstrated. 2. Moderate severity chronic white matter changes, nonspecific but most likely related to chronic small vessel disease. 3. Few scattered tiny lacunar infarcts of the brainstem. 4. Given the findings are not entirely specific, clinical evaluation for possible multiple sclerosis recommended. Angelo Garrido MD Knee X-Ray 01/22/[id number] Signed Impressions: Service Date/Time: Sunday, January 22, 2017 21:17 - CONCLUSION: 1. Evidence of moderate to large joint effusion. 2. No acute fracture or malalignment. 3. Mild 3 compartment osteoarthritic change. Benjamin Person MD Hip and Pelvis X-Ray [id number]/22/172053 Signed Impressions: Service Date/Time: Sunday, January 22, 2017 21:10 - CONCLUSION: 1. Mild to moderate degenerative change of both hips with no acute fracture or malalignment. There is flattening and remodeling of the right humeral head. Benjamin Person MD Physical Exam GENERAL:Sedated. On vent, NAD, looks edematous. Getting HD SKIN: Cool and dry. No generalized rash. EYES: [place] conjunctiva. No petechia or hemorrhage. EARS, NOSE AND THROAT: Nose without bleeding or purulent nasal discharge. ET in mouth NECK: Trachea midline. Supple and no meningeal signs CARDIOVASCULAR: Regular rate and rhythm. Soft heart sounds. No murmurs, rubs or gallops heard RESPIRATORY: Coarse BS bilaterally, decreased at bases. R CT with serosanguineous fluid ABDOMEN: Soft, mildly distended, some grimacing during palpation. EXTREMITIES: No clubbing, cyanosis. Both hands less edematous. Has evidence of multiple gouty tophi in both hands and feet. LUE - wound vac in place NEUROLOGICAL: Sedated PSYCHIATRIC: Unable to assess LINE: Lines with no evidence of infection Assessment & Plan Remarks IMPRESSION New shock, due to large R retroperitoneal bleed, S/P multiple transfusions and S/P coiling of bleeders Elevated amylase and lipase, ?due to shock Anemia, due to bleed, retroperitoneal MSSA sepsis, due to suppurative thrombophlebitis LUE, S/P I and D and excision of portion of cephalic vein Respiratory failure, has had several intubations - reintubated again 02/28 Recent Rx 7 days high dose solumedrol for transverse myelitis Wu LE DVT has IVC filter placed 01/25 - ?hypercoagulable state Chronic kidney disease, worsening creatinine - shock and compression of ureter by hematoma Known DM, HTN Gouty tophi both hands and feet Diarrhea, C diff negative UTI, GNR Thrombocytopenia, no evidence of DIC, ?meds, ?infection, ?due to bleed RECOMMENDATION Got dose of Vanco today, check level tomorrow Continue Invanz Stop Diflucan Monitor H/H Follow platelet count Monitor temps Monitor progress D/W Irene Vogel MD Mar 02, 2017 15:37
[2017-03-02] MEDS: ERTAPENEM INJ 1,000 MG in SODIUM CHLORIDE 0.9% INJ 100 ML IV SCH (21:17)
[2017-03-02 23:19] LABS: HEMATOCRIT 22.3 % (39.0-51.0)
[2017-03-02 23:27] LABS: REVIEW FLAG FINAL
[2017-03-03] VITALS (27 sets, daily range): BP systolic 104–165; BP diastolic 55–91; PULSE 77–98; RESP 16; TEMP 97.7–98.7; O2SAT 96–100
[2017-03-03] MEDS: INSULIN NovoLIN REGULAR SUPPLEMENTAL SCALE SQ SCH ×7 (01:04→23:50)
[2017-03-03] MEDS ORDERED: SODIUM CHLOR 0.9% 250 ML INJ 250 ML IV ONE ×2 (02:30→06:00)
[2017-03-03] MEDS: RESP: ALBUTEROL 2.5 MG/IPRATROPIUM 0.5 MG NEB (SCH) NEB ×4 (04:00→21:55)
[2017-03-03 04:23] LABS: AUTOMATED NEUTROPHIL # 11.4 TH/MM3 (1.8-7.7); BASOPHIL % 0.4 % (0.0-2.0); LYMPH % 1.9 % (9.0-44.0); LYMPHOCYTE # 0.2 TH/MM3 (1.0-4.8); MEAN CELL VOLUME 86.7 FL (80.0-100.0); MEAN CORPUSCULAR HEMOGLOBIN 29.2 PG (27.0-34.0); MEAN CORPUSCULAR HGB CONC 33.7 % (32.0-36.0); NEUT % 92.7 % (16.0-70.0); PLATELET COUNT 77 TH/MM3 (150-450); RED BLOOD COUNT 2.37 MIL/MM3 (4.50-5.90); WHITE BLOOD COUNT 12.3 TH/MM3 (4.0-11.0)
[2017-03-03 04:30] LABS: HEMO FLAGS AUTO DIFF
[2017-03-03 04:33] LABS: HEMATOCRIT 20.6 % (39.0-51.0)
[2017-03-03 04:44] LABS: BICARBONATE 22.7 MEQ/L (21.0-32.0); CALCIUM-PROTEIN CORRECTED 8.4 MG/DL (8.5-10.1); MAGNESIUM 1.9 MG/DL (1.5-2.5); POTASSIUM 3.4 MEQ/L (3.5-5.1); TOTAL BILIRUBIN ADULT 0.3 MG/DL (0.2-1.0)
[2017-03-03] MEDS: ARTIFICIAL TEARS OPTH SOLN 15 ML BTL EACH EYE SCH ×3 (05:07→21:48)
[2017-03-03] MEDS: HYDROCORTISONE SOD SUCCINATE 100 MG VIAL IV SCH ×3 (05:07→21:48)
[2017-03-03] MEDS: METOCLOPRAMIDE HCL 10 MG/2 ML VIAL IV PUSH SCH ×3 (05:08→21:48)
--- NOTE | 2017-03-03 06:19 | RADRPT ---
EXAM DATE/TIME: 03/03/2017 04:24 [place] COMPARISON: CHEST SINGLE AP, March 02, 2017, 1:56. INDICATIONS : Respiratory failure, Right side chest tube MEDICAL HISTORY : Chronic obstructive pulmonary disease. Diabetes mellitus type II. Gout, Kidney disease SURGICAL HISTORY : Renal Stents ENCOUNTER: Subsequent ACUITY: 2 weeks PAIN SCORE: Non-responsive. LOCATION: Bilateral chest FINDINGS: The ET tube tip is 5.2 cm from the roxanna. The NG tube is corrected into the stomach. There is a left subclavian line in place with the tip overlying the SVC. There appear to be bilateral internal jugul ar central lines in place with tips over the SVC. The heart size is normal. There is increased densit y at the left base. The right lung is clear. CONCLUSION: 1. Tubes and lines in good position. 2. Left base consolidation, atelectasis. Some degree of left effusion should be considered. Angelo Manzo MD on March 03, 2017 at 6:16 Board Certified Radiologist. This report was verified electronically.
[2017-03-03] MEDS: MIDAZOLAM 100 MG/100 ML INJ 100 ML IV PRN ×2 (06:57→19:10)
[2017-03-03] MEDS: CHLORHEXIDINE 0.12% (ORAL KIT) 15 ML CUP MT SCH ×2 (08:38→19:52)
[2017-03-03] MEDS: LACTOBACILLUS ACIDOPHILUS TAB PO SCH ×3 (08:41→17:21)
[2017-03-03] MEDS: SODIUM CHLORIDE 0.9% FLUSH 10 ML FLUSH IV FLUSH SCH ×2 (08:41→19:54)
[2017-03-03 08:43] LABS: APTT (PATIENT) 35.7 SEC (24.3-30.1); INTERNATIONAL NORMALIZED RATIO 1.1 RATIO
[2017-03-03 09:22] LABS: BANDS 6 % (0-6); CORRECTED NUCLEATED RBC 2 /100 WBC (0-0); NEUTROPHIL # MANUAL DIFF 12.1 TH/MM3 (1.8-7.7); PLATELET ESTIMATE SMEAR LOW (NORMAL); PLATELET MORPHOLOGY NORMAL (NORMAL); POLYS (SEG NEUTROPHILS) 92 % (16-70); SCAN/DIFF FINAL DIFF MANUAL; WBC DIFF SAMPLE 100
[2017-03-03] MEDS ORDERED: CALCIUM CHLORIDE INJ 1 GM in SODIUM CHLORIDE 0.9% INJ 100 ML IV ONE (10:00)
[2017-03-03] MEDS: PANTOPRAZOLE SODIUM 40 MG VIAL IV PUSH SCH ×2 (10:42→22:30)
[2017-03-03] MEDS: SODIUM CHLOR 0.9% 1000 ML INJ 1,000 ML IV SCH (11:55)
--- NOTE | 2017-03-03 13:17 | HHI.NPPN ---
Subjective History of Present Illness 61-year-old with history of urinary stone Additional Remarks Remains intubated and sedated. Drop in hemoglobin today Review of Systems General Constitutional: Fatigue Objective Data Data 03/03/17 03/04/17 19:00 07:00 Intake Total 1660 ml Balance 1660 ml IV Total 360 ml Packed Cells 800 ml Blood Product IV Normal Saline Flush 500 ml Vital Signs Date Time Temp Pulse Resp B/P (MAP) Pulse Ox O2 Delivery O2 Flow Rate FiO2 03/03/17 12:53 98.5 77 16 165/89 100 03/03/17 12:51 100 40 03/03/17 10:53 98.6 82 16 164/82 99 03/03/17 10:38 98.3 82 16 161/87 99 03/03/17 10:14 99 40 03/03/17 10:00 90 03/03/17 09:08 98.4 80 16 147/90 99 03/03/17 09:02 98.2 81 16 147/91 98 03/03/17 08:47 97.7 84 16 149/75 98 03/03/17 08:00 88 03/03/17 08:00 40 03/03/17 08:00 97.8 82 16 147/87 (107) 99 03/03/17 07:00 100 Mechanical Ventilator 40 03/03/17 06:01 98.2 90 16 131/68 99 03/03/17 06:00 90 03/03/17 05:13 90 16 130/64 100 03/03/17 04:51 98.1 93 16 131/65 100 03/03/17 04:51 98.4 92 16 104/55 100 03/03/17 04:36 100 40 03/03/17 04:34 100 Ventilator 03/03/17 04:00 98.4 98 16 110/63 (79) 99 03/03/17 04:00 98 03/03/17 04:00 40 03/03/17 02:00 95 03/03/17 01:25 99 40 03/03/17 00:00 98.3 91 16 106/62 (77) 99 03/03/17 00:00 40 03/03/17 00:00 92 03/02/17 22:00 97 03/02/17 21:25 99 Ventilator 03/02/17 20:00 98.2 95 16 113/60 (77) 100 03/02/17 20:00 40 03/02/17 20:00 95 03/02/17 19:51 100 Ventilator 03/02/17 19:47 100 40 03/02/17 19:00 100 Mechanical Ventilator 40 03/02/17 18:00 94 03/02/17 17:09 100 40 03/02/17 16:00 98.1 92 16 109/60 (76) 100 03/02/17 16:00 92 03/02/17 16:00 40 03/02/17 15:45 84 119/61 03/02/17 14:36 100 40 03/02/17 14:00 88 03/02/17 13:45 90 88/52 -: 03/03/17 0354 03/03/17 0354 Physical Exam General Appearance: Pale Eyes Eye Exam: Pupils Equal Throat Throat Exam: Oral Mucosa North & Moist Neck Neck Exam: Neck Supple Pulmonary Resp Exam: Crackles, Rhonchi, Decreased Bases, Diminished Breath Sounds Cardiology CV Exam: Normal Sinus Rhythm, Tachycardia Gastrointestinal/Abdomen GI Exam: Non-Tender, Distended Extremeties Extremities Exam: Moderate Edema Assessment/Plan Problem List: (1) Acute renal failure ICD Codes: N17.9 - Acute kidney failure, unspecified Status: Acute Plan: Patient developed Hypotension,sepsis staph aureus respiratory failure and increase WBC. Had aspiration pneumonia, developed sepsis with ARF again creatinine declined slightly post hydration he also had retroperitoneal bleed Elevated intra abdominal pressures - improved now. Surgery following no compartment syndrome Isolated UF done yesterday with 1.5L UF. Making some urine, continue to monitor. Consider for next HD/UF Sunday as needed. 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 Continue to monitor. (2) CKD (chronic kidney disease) stage 3, GFR 30-59 ml/min ICD Codes: N18.3 - Chronic kidney disease, stage 3 (moderate) Status: Chronic Plan: Ultrasound revealed chronic kidney disease there is no kidney stones (3) Diabetes ICD Codes: E11.9 - Type 2 diabetes mellitus without complications Plan: Continue to monitor (4) Distal end of ulna fracture, closed ICD Codes: S52.609A - Unspecified fracture of lower end of unspecified ulna, initial encounter for closed fracture Status: Acute Plan: Orthopedic is following Problem Qualifiers (1) Acute renal failure: Qualified Codes: N17.9 - Acute kidney failure, unspecified Nabeel Singer MD Mar 03, 2017 13:16
--- NOTE | 2017-03-03 13:18 | HHI.CCPN ---
Subjective Remarks/Hospital Course Date of admission: 01/22 Date of critical care medicine consult 02/10 due to acute hypoxemic respiratory failure requiring emergent intubation 62-year-old male with a past medical history of hypertension, hyperlipidemia, diabetes mellitus, gout, uric acid kidney stones, kidney disease of unknown stage who originally presented to [facility] emergency department on 01/22 after a fall in which he sustained a right distal ulna fracture. He had been experiencing a gradual primarily lower extremity weakness as well as upper extremity weakness that was progressive. Neurology consult was obtained. MRI revealed no acute stroke. He had multifocal white matter changes. Tiny lacunar infarcts of the brainstem. Lumbar MRI report states L4-L5 disc protrusion with cetnral canal stenosis. Dr. Blackwell evaluated and states no cord compression on MRI C/T spine and recommended nonoperative management. Symptoms were felt to be consistent with transverse myelitis and he underwent Solumedrol 250 mg IV q6 hours 01/27-02/02. He also was found to have occlusive thrombus in the bilateral posterior tibial veins. Heparin was being avoided because he had traumatic lumbar puncture on 01/26 and 02/01. IVC filter was placed 01/25. He was undergoing physical therapy, reportedly making some improvements with plan to eventually discharged home with his son (max assist standing, and bed to chair per PT note). Apparently he had some vomiting the evening of 02/09 and additional vomiting on 02/10. He had a fever 102.8 on 02/09. Last recorded bowel movement was 02/03. Tonight he had acute onset of severe hypoxemia and respiratory distress. [facility] called and he was brought emergently to [facility] where his sats were 64% on 100% nonrebreather with mean arterial pressure 44. He was emergently intubated, CVL and art line placed. He is in septic shock. SUBJ: 02/11: Patient remains intubated sedated, critically ill. FiO2 reduced to 80% after increasing PEEP to 12. In severe septic shock Levophed at 16 mcg/m, vasopressin at 0.04 international units. D/W vascular surgery Dr. Enciso. He performed bedside Left upper extremity incision and debridement and excision of septic cephalic vein. 02/12: Remains intubated sedated profoundly septic, in shock on vasopressin and 7 mcg/min Levophed. FiO2 has improved to 45%, WBC count remains elevated with 20 ,000 white count significant left shift. Slight improvement in creatinine 2.9 urine output 750 ml 24 hours. 2-D echo shows LV ejection fraction 20-25%, no vegetation reported. Blood cultures 4 staph aureus. Wound culture pending 02/13: Remains critically ill but stable to improving. WBC count is down to 16, creatinine improving to 2.36. Off all pressors. Urine output also improving. 1.5L in 24 hours 02/14: Extubated 02/13. Tolerating well. WBC now down to 12.8. Creat improving 2.3 to 2. UO 3.4L. remains off all pressors. Was started on Precedex yesterday night for agitation, currently on 0.5 g per KG per hour. Chest x-ray shows left more than right air space disease 02/20/17 Re consult: 62-year-old male who was originally admitted for lower extremity weakness and found to have what was thought to be possible transverse myelitis. His hospital course his included a healthcare associated pneumonia, septic thrombophlebitis, DVT. He was most recently in the hospital floor where he had significant nausea and vomiting and diarrhea. His C. difficile test was recently negative. However, he has experienced worsening acute on chronic renal failure, hypotension, tachycardia, and severe hypoxemia. He did have a bout of vomiting earlier today, and his hospitalist attending suspects that he may have aspirated. He arrives by rapid response to the ICU with a nonrebreather in place in severe respiratory distress with SPO2 of 85%. I emergently intubate the patient, see separate procedure note for details. At this point the patient was hypotensive and tachycardic. He does have a history of an EF of 20%, however clinically he appears in florid septic shock. I placed central line and arterial line started vasopressors and gentle IV fluid resuscitation with 1 L of LR. Patient today was empirically broadened to vancomycin and Zosyn from his oxacillin which was initially treating MSSA bacteremia. He is recultured. Critical-care medicine is consulted to evaluate and manage his worsening multiorgan system failure and decompensated septic shock 02/21: Patient remains intubated sedated. Becomes anxious tachypnea on sedation lightening. Chest x-ray shows mild left lower lobe infiltrate. WBC count is slightly improved today from 23.2 t0 21. C Diff negative. UO adequate, creat slightly worsening. 1.57 today 02/22: Remains intubated sedated tolerated CPAP yesterday, plan is for EGD/ Colonscopy. WBC count back to normal. UO adequate. Creat stable 02/23: Tolerating CPAP trials following commands. Will do a spontaneous breathing trials. Status post EGD colonoscopy yesterday -Gastritis, esophagitis. Diverticulosis and multiple polyps. Urine output adequate but creatinine increasing to 1.7 with patient requiring multiple straight catheterization. We'll reinsert Sloan. 02/24: Breathing comfortably 24 hours after extubation. Protects airway well. 02/25: Excoriate bottom, will place rectal FMS. Start pureed diet. 02/26: Afebrile. Complaining of nausea and vomiting this afternoon. Increased stool output. Continue potassium replacement today. 02/27: 10 PM overnight, acutely hypotensive. Received 3 units PRBCs. Antibiotic coverage broadened to piperacillin/tazobactam, cortisol and 1 dose of vancomycin. Oxacillin drip currently on hold. Symptomatically, patient continues to vague abdominal pain/nausea vomiting which is unchanged for the past several days. Lipase elevated yesterday. Lactic acid normal. Troponin normal. Urinary retention after removal of Sloan. Straight catheter 1300. Cc 02/28: New diagnosis large retroperitoneal hematoma. Received 10 PRBC, 14 FFP, 2 platelets, 1 cryo-, 6 g calcium chloride, 2 is magnesium sulfate and 4 mg Bumex. CTA abdomen revealed possible arterial bleeds iliac, lumbar. Patient is currently on norepinephrine and epinephrine drips and possible need right nephrostomy tube placement due to large hematoma compressing ureter. Intra-abdominal bladder pressures are currently 13 03/01: Afebrile. Received 25 g albumin and 1 unit PRBCs overnight. Intra- abdominal bladder pressures currently 19. Currently on 3 micrograms per minute of norepinephrine. [id number] 1 out of 4 on 4 mics grams per kilogram per minute of cisatracurium. 03/02: Slightly hypothermic overnight. Hemoglobin appears to have stabilized. Troponin bump overnight likely secondary to demand ischemia from hypotension. Hemodynamically stable off all vasopressors. Subjective 03/03: Received 1 PRBCs overnight. 3 units currently. Off all vasopressors. Likely rebleeding. Stool is dark. Objective Vital Signs Date Time Temp Pulse Resp B/P (MAP) Pulse Ox O2 Delivery O2 Flow Rate FiO2 10/14/17 12:53 98.5 77 16 165/89 100 03/03/17 12:51 40 03/03/17 07:00 Mechanical Ventilator 02/28/17 07:00 2.00 Intake and Output 03/03/17 03/03/17 03/04/17 08:00 16:00 00:00 Intake Total 1540.3 ml 1660 ml Output Total 195 ml Balance 1345.3 ml 1660 ml Result Diagram: 03/03/17 0354 03/03/17 0354 Other Results Microbiology Date/Time Source Procedure Growth Status 02/27/17 03:48 Blood Peripheral Aerobic Blood Culture - Preliminary NO GROWTH IN 4 DAYS Resulted 02/27/17 03:48 Blood Peripheral Anaerobic Blood Culture - Preliminary NO GROWTH IN 4 DAYS Resulted 02/01/17 09:55 Cerebral Spinal Fluid Lumbar Puncture Fungal Smear - Final NO FUNGAL ELEMENTS SEEN. Complete 02/01/17 09:55 Cerebral Spinal Fluid Lumbar Puncture Fungal Culture - Final NO GROWTH IN 4 WEEKS Complete 02/17/17 05:55 Stool Stool Stool Occult Blood (GREGORY) - Final HEMOCCULT POSITIVE Complete 02/20/17 12:55 Sputum Endotracheal Gram Stain - Final Complete 02/20/17 12:55 Sputum Endotracheal Sputum Culture - Final HEAVY GROWTH NORMAL RESPIRATORY EARL Complete 02/27/17 08:32 Urine Catheterized Urine Urine Culture - Final Klebsiella Pneumoniae Esbl Pos Complete 02/11/17 09:10 Abscess Arm Acid Fast Stain - Final NO ACID FAST BACILLI SEEN Resulted 02/11/17 09:10 Abscess Arm Mycobacterial Culture - Preliminary NO GROWTH IN 2 WEEKS Resulted Imaging Last Impressions Chest X-Ray 03/03/17 0600 Signed Impressions: Service Date/Time: Friday, March 03, 2017 04:24 - CONCLUSION: 1. Tubes and lines in good position. 2. Left base consolidation, atelectasis. Some degree of left effusion should be considered. Angelo Manzo MD Aortography 02/28/17 0000 Signed Impressions: Service Date/Time: Tuesday, February 28, 2017 08:01 - CONCLUSION: 1. Active hemorrhage from distal right lateral sacral and iliolumbar branches successfully coil and Gelfoam embolized, as above. Juan Bhakta MD Abdomen/Pelvis CT 02/28/17 0000 Signed Impressions: Service Date/Time: Tuesday, February 28, 2017 06:51 - CONCLUSION: 1. The right retroperitoneal hematoma has increased in size, as above. There are 2 serpiginous arterially enhancing structures visualized, one in the right psoas muscle and another extending into the hematoma at the right iliac fossa. These could represent sites of continued active bleeding. 2. Stable moderate size left and small right pleural effusion with associated compressive atelectasis. 3. Stable small volume of free fluid in the abdomen and pelvis. There is also anasarca. The findings concerning the retroperitoneal hematoma were discussed with Dr. Aguiar via telephone at approximately 7: 10 AM on 02/28/2017. Angelo Allen MD Chest CT 02/27/17 0000 Signed Impressions: Service Date/Time: Monday, February 27, 2017 18:12 - CONCLUSION: 1. Bilateral pleural effusions with bibasilar atelectasis, left greater than right. Tom Sanchez MD Abdomen X-Ray 02/26/17 0000 Signed Impressions: Service Date/Time: Sunday, February 26, 2017 14:52 - CONCLUSION: 1. Nonobstructive bowel gas pattern. Juan Bhakta MD Upper Extremity Ultrasound 02/10/17 0000 Signed Impressions: Service Date/Time: Friday, February 10, 2017 18:46 - CONCLUSION: Occlusive thrombus in the cephalic and basilic veins. Benjamin Person MD Lung Scan- Nuclear Medicine 02/10/17 0000 Signed Impressions: Service Date/Time: Friday, February 10, 2017 22:17 - CONCLUSION: Low probability pulmonary embolism. Candido Patton MD Head CT 02/10/17 0000 Signed Impressions: Service Date/Time: Friday, February 10, 2017 23:51 - CONCLUSION: Negative noncontrast CT brain. Candido Patton MD Wrist X-Ray 02/06/17 0000 Signed Impressions: Service Date/Time: Monday, February 06, 2017 12:50 - CONCLUSION: Minimally displaced distal radius and ulnar fractures. Armando Dodd MD Lumbar Puncture Fluoroscopy 02/01/17 0000 Signed Impressions: Service Date/Time: January 09:35 - CONCLUSION: Uncomplicated fluoroscopically guided lumbar puncture. CSF was clear. Nabeel Peralta MD Head Magnetic Resonance Angiography 01/27/17 Signed Impressions: Service Date/Time: Friday, January 27, 2017 10:33 - CONCLUSION: No intracranial vascular abnormality is identified. There is no aneurysm visualized. Angelo Allen MD IVC Filter Placement X-Ray 01/25/17 Signed Impressions: Service Date/Time: January 10:29 - CONCLUSION: Uncomplicated inferior vena cava filter placement as above. Yung Fowler MD Thoracic Spine MRI 01/24/17 Signed Impressions: Service Date/Time: Tuesday, January 24, 2017 22:29 - CONCLUSION: 1. Mild degenerative spondylosis most prominently at T11-L1 with slight effacement of the anterior thecal sac and left lateral recess. No significant neural foraminal stenosis. 2. No acute fracture. Juan Bhakta MD Renal Ultrasound 01/23/17 Signed Impressions: Service Date/Time: Monday, January 23, 2017 08:53 - CONCLUSION: 1. Evidence of chronic parenchymal disease of both kidneys. No obstructive uropathy or other acute abnormality demonstrated. 2. Trace ascites, nonspecific. Angelo Garrido MD Lumbar Spine MRI 01/23/17 Signed Impressions: Service Date/Time: Monday, January 23, 2017 17:01 - CONCLUSION: 1. At L4-5 is a broad-based disc protrusion with severe central canal and lateral recess stenosis and flattening of the exiting right L4 nerve root. 2. L5-S1 there is a disc protrusion and moderate stenosis with flattening of the exiting L5 nerve roots bilaterally. 3. At L3-4 there is a moderate to severe central stenosis and lateral recess stenosis with mild foraminal stenosis. 4. No acute fracture or spondylolisthesis. Trace Holloway MD Lower Extremity Ultrasound 01/23/17 Signed Impressions: Service Date/Time: Monday, January 23, 2017 09:53 - CONCLUSION: Bilateral focal lower extremity DVT involving the posterior tibial veins. Angelo Garrido MD Cervical Spine MRI 01/23/17 Signed Impressions: Service Date/Time: Monday, January 23, 2017 17:01 - CONCLUSION: 1. Multilevel cervical spine degenerative changes as above. 2. Mild degrees of spinal stenosis at C3/C4-C6/C7. No cord compression or cord signal abnormality. 3. Age indeterminate left paracentral/foraminal disc protrusion at C6/C7. 4. Multilevel foraminal stenosis, most severe on the left at C6/C7. Please see individual levels above. 5. No fracture or subluxation of the cervical spine. Angelo Garrido MD Brain MRI 01/23/17 0000 Signed Impressions: Service Date/Time: Monday, January 23, 2017 17:01 - CONCLUSION: 1. No acute stroke or other acute intracranial abnormality demonstrated. 2. Moderate severity chronic white matter changes, nonspecific but most likely related to chronic small vessel disease. 3. Few scattered tiny lacunar infarcts of the brainstem. 4. Given the findings are not entirely specific, clinical evaluation for possible multiple sclerosis recommended. Angelo Garrido MD Knee X-Ray 01/22/[id number] Signed Impressions: Service Date/Time: Sunday, January 22, 2017 21:17 - CONCLUSION: 1. Evidence of moderate to large joint effusion. 2. No acute fracture or malalignment. 3. Mild 3 compartment osteoarthritic change. Benjamin Person MD Hip and Pelvis X-Ray [id number]/22/[id number] Signed Impressions: Service Date/Time: Sunday, January 22, 2017 21:10 - CONCLUSION: 1. Mild to moderate degenerative change of both hips with no acute fracture or malalignment. There is flattening and remodeling of the right humeral head. Benjamin Person MD Objective Remarks GENERAL: 62-year-old male, critically ill currently orotracheally intubated HEENT: Normocephalic. Atraumatic. Pupils equal, round, reactive, conjugate by 3 mm bilaterally. NECK: Trachea is midline. Obese. No JVD or thyromegaly right IJ Cordis and left subclavian TLC, left IJ hemodialysis catheter clean dry and intact CHEST: Diminished breath sounds. Right-sided chest tube -20 cm H2O. 100 cc serosanguineous CARDIOVASCULAR: RRR S1, S2 no S4. ABDOMEN: Distended. Firm to palpation. No bowel sounds are appreciated. Umbilical hernia is reducible. MUSCULOSKELETAL: Pulses 2+. Trace to 1+ bilateral upper and lower extremity edema. Wound VAC in left upper extremity NEUROLOGICAL: Currently sedated and paralyzed on cisatracurium drip. Procedures IVC filter placement 01/25/2017 LP 01/26/2017 Line: Central Venous Catheter Side: Left Location: Subclavian A/P Problem List: (1) Septic shock ICD Code: A41.9 - Sepsis, unspecified organism; R65.21 - Severe sepsis with septic shock Status: Acute (2) Acute respiratory failure ICD Code: J96.00 - Acute respiratory failure, unspecified whether with hypoxia or hypercapnia Status: Acute (3) Thrombophlebitis arm ICD Code: I80.8 - Phlebitis and thrombophlebitis of other sites (4) Aspiration pneumonia ICD Code: J69.0 - Pneumonitis due to inhalation of food and vomit Status: Acute (5) Atelectasis of left lung ICD Code: J98.11 - Atelectasis Status: Acute (6) Quadriparesis ICD Code: G82.50 - Quadriplegia, unspecified Status: Acute (7) DVT (deep venous thrombosis) ICD Code: I82.409 - Acute embolism and thrombosis of unspecified deep veins of unspecified lower extremity (8) Altered mental status ICD Code: R41.82 - Altered mental status, unspecified Status: Acute (9) CKD (chronic kidney disease) stage 3, GFR 30-59 ml/min ICD Code: N18.3 - Chronic kidney disease, stage 3 (moderate) Status: Chronic (10) Acute renal failure ICD Code: N17.9 - Acute kidney failure, unspecified Status: Acute (11) Diabetes mellitus ICD Code: E11.9 - Type 2 diabetes mellitus without complications Status: Chronic (12) Distal end of ulna fracture, closed ICD Code: S52.609A - Unspecified fracture of lower end of unspecified ulna, initial encounter for closed fracture Status: Acute (13) Gout ICD Code: M10.9 - Gout, unspecified Status: Chronic Assessment and Plan NEURO/PSYCH: Acute metabolic encephalopathy Quadriparesis secondary to suspected transverse myelitis Recurrent falls Patient is currently on Midazolam drip at 7 mg an hour and fentanyl drip at 75 g per minute Goal of RA SS -2 today. Suspected transverse myelitis. Received methylprednisolone 250 mg IV every 6 hours 01/27-02/02, started back on hydrocortisone 02/21/17, initially tapering to 50 mg IV every 8 hours starting received 1 dose at 2100 prior to becoming hypotensive. Currently back on 100 mg IV every 8 hours LP 01/26 and 02/01. CSF culture negative 01/26, 02/01 Oligoclonal bands negative. CSF/serum IgG index is not elevated. VDRL nonreactive. Cryptococcal antigen negative. Brain MRI 01/23 no acute stroke. Few scattered lacunar infarcts of the brainstem. Moderate chronic white matter changes. MRI cervical/thoracic spine- mild spinal stenosis C3/C4 to C6/C7. No cord compression. RPR negative Neurology has been following, Dr. Crenshaw. Repeat CT brain 02/10 - negative Continue PT/OT RESP: Acute hypoxemic respiratory failure Healthcare associated pneumonia/Aspiration Pneumonia Right-sided chest tube [facility] for pleural effusion. [facility] Ventilator bundle Albuterol/ipratropium aerosols every 6 hours with albuterol aerosols every 2 hours. Dyspnea Spontaneous breathing trials not indicated on paralysis VQ scan 02/10 low probability for PE. CT chest 02/10 - left lower lobe collapse and consolidation. CT chest 02/27 revealed right greater than left pleural effusions. Extubated 02/23. 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 -20 cm water. 60 cc serosanguineous output. CV: Severe sepsis Systolic heart failure likely chronic with ejection fraction 20-25% Hyperlipidemia History of hypertension Mild TR Elevated troponin likely type II demand ischemia Currently on norepinephrine at 3 g per minute to maintain mean arterial pressure greater than or equal to 65 Holding metoprolol and amlodipine in light of current hypotension. Discontinue atorvastatin 10 mg by mouth daily for dyslipidemia. Cardiac index 2.4. SVV 14 Troponin 0.[address]-T changes. Patient denying chest discomfort. 2-D echocardiogram 01/11 revealed EF 20-25%. Per to really reduce left ventricular systolic function. Mild TR. Pulmonary arterial pressures were normal around 20 Troponin currently 6.55 on 03/02 and trending downward. Likely will need stress test of heart once stable. Cannot anticoagulate due to retroperitoneal hematoma the present time GI: Large right retroperitoneal hematoma Severe protein energy malnutrition Nausea/vomiting Diarrhea Gastritis Diverticulosis Internal and external hemorrhoids Hiatal hernia Elevated lipase 02/27 CT chest/abdomen and pelvis - 9.4 x 7.5 renal and 16 x 12 cm right psoas muscle hematoma. Fluid around liver and spleen. Right-sided nephrolithiasis CTA abdomen 02/28 - possible blushing around iliac/lumbar vessels Discussed with IR. We'll attempt embolization today due to use severe acute illness. CT abdomen and pelvis 02/10 atrophic left kidney. Bilateral inguinal hernias fat- containing. Nonobstructing 12 mm right kidney stone repeat CT abd/pelvis did not show evidence of obstruction. patient clinically has been having diarrhea (c. diff negative 02/19). also with nausea/vomiting of unclear etiology. EGD/Colonoscopy-02/22/17 showed gastritis esophagitis, hiatal hernia, diverticulosis and multiple polyps in descending colon and sigmoid which were snared biopsied. Biopsy pending Check C. difficile Holding cholestyramine 4 g every 12 hours for diarrhea Dicyclomine 20 mg 3 times a day Measuring intra-abdominal pressures every [address]. [address] Lewis consulted for intervention if needed Continue on trickle feeds with Nepro 20 cc an hour today FEN/RENAL: Acute kidney injury in the setting of Chronic kidney disease stage 3-4 History of uric acid kidney stones with prior stent BPH Nonfunctioning left kidney Sloan placed due to urinary retention and worsening creatinine. Monitor intake and output q1hr. Monitor electrolytes. RIOS/SPEP negative. 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 Recommended nephrostomy tube if obstruction Nephrology consult for possible hemodialysis Due to acute illness holding tamsulosin 0.4 mg by mouth daily for BPH ID: Septic shock- Abscess and Suppurative thrombophlebitis left upper extremity MSSA bacteremia Klebsiella UTI ESBL positive Acute aspiration pneumonia/HCAP Broad-spectrum antibiotics with oxacillin 2 g IV every 4 hours till March 26 initially. This is been held in light of current change to regimen to fluconazole, ertapenem Blood cultures 2, UA ESBL positive Klebsiella UTI ID on board. f/u cultures form 02/20/17 blood, sputum, urine cultures-all negative to date HEME: Acute blood loss anemia DVT, bilateral posterior tibial vein, IVC filter Septic thrombophlebitis with occlusive thrombus mid cephalic and basilic vein side Received 10 PRBC, 14 FFP, 2 platelets, 1 cryo-02/28 Past 24 hours received 3 units PRBCs Serial hemoglobins every 6 hours Recheck coags Ultrasound 01/23/17 - Bilateral lower extremity with occlusive posterior tibial vein DVTs. Heparin was initially started for DVT but was placed on hold due to LP with suspected traumatic tap. Currently holding full anticoagulation with enoxaparin 100 mg IV twice a day due to anemia as of 02/26 IVC filter was placed 01/25/17. Ultrasound LUE 02/10 occlusive thrombus mid cephalic vein, basilic vein.s. Transfuse 3 units PRBCs 02/27 Transfuse 2 units PRBCs 03/01. ENDO: Diabetes mellitus Hypoglycemia History of prior adrenal insufficiency with shock Gout EGD colonoscopy completed 02/22. gastritis and esophagitis, colon polyps Started Hydrocortisone 100 mg IV q8hr 02/21/17 (Recent high dose steroids use now hypotensive, hypoglycemic) Accu-Cheks to maintain euglycemia Novulin R every 4 hours MSK: Right distal ulna fracture. Dr. Nathan with orthopedics has evaluated and recommended nonoperative management. Right wrist splint in place. PROPH: Pantoprazole 40 mg IV twice a day for stress ulcer prophylaxis. Has IVC filter. Therapeutic enoxaparin currently on hold ACCESS: Left subclavian CVL placed 02/20. Right IJ Cortis placed 02/28. Right radial arterial line placed 02/28. A left IJ hemodialysis catheter placed 03/01. Critical Care: The total critical care time was 35 minutes. Time to perform other separately billable procedures was not included in the critical care time. Problem Qualifiers (1) Aspiration pneumonia: (2) DVT (deep venous thrombosis): Qualified Codes: I82.443 - Acute embolism and thrombosis of tibial vein, bilateral (3) Acute renal failure: Qualified Codes: N17.9 - Acute kidney failure, unspecified (4) Diabetes mellitus: (5) Gout: Janes Aguiar MD Mar 03, 2017 13:18
[2017-03-03 13:19] LABS: HEMATOCRIT 28.9 % (39.0-51.0)
[2017-03-03 13:26] LABS: REVIEW FLAG FINAL
[2017-03-03] MEDS: fentaNYL DRIP 250 ML IV PRN (17:21)
[2017-03-03 18:22] LABS: REVIEW FLAG FINAL
--- NOTE | 2017-03-03 18:34 | PD.PROCEDR ---
Central Line Procedure REASON FOR PROCEDURE Central venous access PROCEDURE PERFORMED Central line placement: Right IJ CVL CONSENT Informed consent for procedure was obtained. The risks and benefits of the procedure were discussed to include but limited to bleeding, clot formation, infection, and even . ANESTHESIA Local injection of 1% Lidocaine DESCRIPTION OF THE PROCEDURE The patient was placed in supine, mild Trendelenburg position. The area was exposed and cleansed with ChloraPrep, times two. Large sterile drape was used to cover the patient, with the site exposed, under sterile conditions including cap, face mask, sterile gown, and sterile gloves. On single attempt, the introducer needle was inserted with negative pressure in syringe and venous flash was obtained. The guide wire was then advanced without any restriction and the needle was removed. The dilator was used without any complications. Using Seldinger technique the antibiotic coated triple-lumen catheter was advanced over the guide wire to a depth of 16 centimeters. The guide wire was removed. All ports were aspirated with dark venous blood return and flushed easily with sterile saline. All ports were capped. Antibiotic disc was placed around central line at puncture site. The central line was secured to the skin with two interrupted 2.0 silk sutures. The area was bandaged with sterile see- through central line bandage. RADIOLOGICAL DATA Ultrasound guidance was used to locate the right internal jugular vein. Doppler /color flow was used to confirm venous flow. COMPLICATIONS: No apparent complications ESTIMATED BLOOD LOSS: Less than 1 cc. Janes Aguiar MD Mar 03, 2017 18:34
[2017-03-03] MEDS ORDERED: SODIUM CHLORIDE 0.9% FLUSH 10 ML FLUSH IV FLUSH PRN (18:45)
--- NOTE | 2017-03-03 18:52 | RADRPT ---
EXAM DATE/TIME: 03/03/2017 18:24 [facility] COMPARISON: CHEST SINGLE AP, March 03, 2017, 4:24. INDICATIONS : Central line placement. MEDICAL HISTORY : Chronic obstructive pulmonary disease. Diabetes mellitus type II. Gout, kidney disease. SURGICAL HISTORY : Renal stents ENCOUNTER: Subsequent ACUITY: 1 day PAIN SCORE: Non-responsive. LOCATION: Bilateral chest FINDINGS: Right jugular central venous catheter has been inserted and is in good position. There is no evidence of pneumothorax. Bilateral effusions and basilar airspace disease remain evident. Pre-existing support devices are in stable position. CONCLUSION: Interval placement of a right internal jugular central venous catheter which is in good position. No evidence of pneumothorax. Persistent airspace disease and small bilateral effusions. Lenny Ware MD on March 03, 2017 at 18:50 Board Certified Radiologist. This report was verified electronically.
[2017-03-03] MEDS: ERTAPENEM INJ 1,000 MG in SODIUM CHLORIDE 0.9% INJ 100 ML IV SCH (19:54)
[2017-03-03 23:39] LABS: HEMATOCRIT 31.4 % (39.0-51.0)
[2017-03-03 23:43] LABS: REVIEW FLAG FINAL
[2017-03-04] VITALS (20 sets, daily range): BP systolic 125–145; BP diastolic 77–93; PULSE 89–114; RESP 16; TEMP 97.8–98.7; O2SAT 93–100
[2017-03-04] MEDS: RESP: ALBUTEROL 2.5 MG/IPRATROPIUM 0.5 MG NEB (SCH) NEB ×4 (04:03→20:51)
[2017-03-04] MEDS: INSULIN NovoLIN REGULAR SUPPLEMENTAL SCALE SQ SCH ×6 (04:36→23:43)
[2017-03-04 04:51] LABS: AUTOMATED NEUTROPHIL # 12.3 TH/MM3 (1.8-7.7); BASOPHIL % 0.1 % (0.0-2.0); HEMATOCRIT 30.1 % (39.0-51.0); LYMPH % 2.1 % (9.0-44.0); LYMPHOCYTE # 0.3 TH/MM3 (1.0-4.8); MEAN CELL VOLUME 87.3 FL (80.0-100.0); MEAN CORPUSCULAR HEMOGLOBIN 29.3 PG (27.0-34.0); MEAN CORPUSCULAR HGB CONC 33.5 % (32.0-36.0); MONO % 7.3 % (0.0-8.0); NEUT % 90.5 % (16.0-70.0); PLATELET COUNT 87 TH/MM3 (150-450); RED BLOOD COUNT 3.45 MIL/MM3 (4.50-5.90); RED CELL DISTRIBUTION WIDTH 15.4 % (11.6-17.2); WHITE BLOOD COUNT 13.6 TH/MM3 (4.0-11.0)
[2017-03-04 04:52] LABS: HEMO FLAGS AUTO DIFF
[2017-03-04 05:08] LABS: ANION GAP 13 MEQ/L (5-15); AST (GOT) 11 U/L (15-37); BICARBONATE 21.5 MEQ/L (21.0-32.0); BLOOD UREA NITROGEN 33 MG/DL (7-18); CHLORIDE 113 MEQ/L (98-107); GLOMERULAR FILTRATION RATE 32 ML/MIN (>89); MAGNESIUM 1.8 MG/DL (1.5-2.5); POTASSIUM 3.7 MEQ/L (3.5-5.1); SODIUM (NA) 147 MEQ/L (136-145)
[2017-03-04 05:09] LABS: ALT (GPT) 14 U/L (12-78)
[2017-03-04 05:11] LABS: ALKALINE PHOSPHATASE 68 U/L (45-117); TOTAL BILIRUBIN ADULT 0.4 MG/DL (0.2-1.0)
[2017-03-04 05:35] LABS: APTT (PATIENT) 30.9 SEC (24.3-30.1); PROTHROMBIN TIME - PATIENT 11.1 SEC (9.8-11.6)
[2017-03-04 05:41] LABS: CREATINE KINASE 51 U/L (39-308)
[2017-03-04 05:42] LABS: BANDS 1 % (0-6); NEUTROPHIL # MANUAL DIFF 13.1 TH/MM3 (1.8-7.7); POLYS (SEG NEUTROPHILS) 95 % (16-70); WBC DIFF SAMPLE 100
[2017-03-04 05:43] LABS: PLATELET ESTIMATE SMEAR LOW (NORMAL); PLATELET MORPHOLOGY NORMAL (NORMAL); SCAN/DIFF FINAL DIFF MANUAL
[2017-03-04] MEDS: ARTIFICIAL TEARS OPTH SOLN 15 ML BTL EACH EYE SCH ×3 (06:00→22:19)
[2017-03-04] MEDS: METOCLOPRAMIDE HCL 10 MG/2 ML VIAL IV PUSH SCH ×3 (06:07→22:20)
[2017-03-04] MEDS: HYDROCORTISONE SOD SUCCINATE 100 MG VIAL IV SCH ×3 (06:07→22:19)
--- NOTE | 2017-03-04 06:31 | RADRPT ---
EXAM DATE/TIME: 03/04/2017 04:41 [facility] COMPARISON: CHEST SINGLE AP, March 03, 2017, 18:24. INDICATIONS : Evaluate for pnuemothorax MEDICAL HISTORY : Chronic obstructive pulmonary disease. Diabetes mellitus type II. Gout, Kidney disease SURGICAL HISTORY : Renal stents ENCOUNTER: Subsequent ACUITY: 2 days PAIN SCORE: Non-responsive. LOCATION: Bilateral chest FINDINGS: The ET tube and NG tube, and bilateral internal jugular central lines and left subclavian line are we ll placed. The heart size is upper limits of normal. A pneumothorax is not seen. There is hazy densit y at the left base with silhouetting of the left hemidiaphragm. The right lung is clear. CONCLUSION: 1. Left base atelectasis, consolidation and effusion. 2. Tubes and lines are in good position. 3. A pneumothorax is not seen. Angelo Manzo MD on March 04, 2017 at 6:28 Board Certified Radiologist. This report was verified electronically.
[2017-03-04] MEDS: CHLORHEXIDINE 0.12% (ORAL KIT) 15 ML CUP MT SCH ×2 (08:11→20:19)
[2017-03-04] MEDS: MIDAZOLAM 100 MG/100 ML INJ 100 ML IV PRN ×2 (08:12→22:21)
[2017-03-04] MEDS: LACTOBACILLUS ACIDOPHILUS TAB PO SCH ×3 (08:12→17:32)
[2017-03-04] MEDS: SODIUM CHLORIDE 0.9% FLUSH 10 ML FLUSH IV FLUSH SCH ×3 (08:12→20:47)
--- NOTE | 2017-03-04 09:30 | HHI.CCPN ---
Subjective Remarks/Hospital Course Date of admission: 01/22 Date of critical care medicine consult 02/10 due to acute hypoxemic respiratory failure requiring emergent intubation 62-year-old male with a past medical history of hypertension, hyperlipidemia, diabetes mellitus, gout, uric acid kidney stones, kidney disease of unknown stage who originally presented to [facility] emergency department on 01/22 after a fall in which he sustained a right distal ulna fracture. He had been experiencing a gradual primarily lower extremity weakness as well as upper extremity weakness that was progressive. Neurology consult was obtained. MRI revealed no acute stroke. He had multifocal white matter changes. Tiny lacunar infarcts of the brainstem. Lumbar MRI report states L4-L5 disc protrusion with cetnral canal stenosis. Dr. Blackwell evaluated and states no cord compression on MRI C/T spine and recommended nonoperative management. Symptoms were felt to be consistent with transverse myelitis and he underwent Solumedrol 250 mg IV q6 hours 01/27-02/02. He also was found to have occlusive thrombus in the bilateral posterior tibial veins. Heparin was being avoided because he had traumatic lumbar puncture on 01/26 and 02/01. IVC filter was placed 01/25. He was undergoing physical therapy, reportedly making some improvements with plan to eventually discharged home with his son (max assist standing, and bed to chair per PT note). Apparently he had some vomiting the evening of 02/09 and additional vomiting on 02/10. He had a fever 102.8 on 02/09. Last recorded bowel movement was 02/03. Tonight he had acute onset of severe hypoxemia and respiratory distress. [facility] called and he was brought emergently to [facility] where his sats were 64% on 100% nonrebreather with mean arterial pressure 44. He was emergently intubated, CVL and art line placed. He is in septic shock. SUBJ: 02/11: Patient remains intubated sedated, critically ill. FiO2 reduced to 80% after increasing PEEP to 12. In severe septic shock Levophed at 16 mcg/m, vasopressin at 0.04 international units. D/W vascular surgery Dr. Enciso. He performed bedside Left upper extremity incision and debridement and excision of septic cephalic vein. 02/12: Remains intubated sedated profoundly septic, in shock on vasopressin and 7 mcg/min Levophed. FiO2 has improved to 45%, WBC count remains elevated with 20 ,000 white count significant left shift. Slight improvement in creatinine 2.9 urine output 750 ml 24 hours. 2-D echo shows LV ejection fraction 20-25%, no vegetation reported. Blood cultures 4 staph aureus. Wound culture pending 02/13: Remains critically ill but stable to improving. WBC count is down to 16, creatinine improving to 2.36. Off all pressors. Urine output also improving. 1.5L in 24 hours 02/14: Extubated 02/13. Tolerating well. WBC now down to 12.8. Creat improving 2.3 to 2. UO 3.4L. remains off all pressors. Was started on Precedex yesterday night for agitation, currently on 0.5 g per KG per hour. Chest x-ray shows left more than right air space disease 02/20/17 Re consult: 62-year-old male who was originally admitted for lower extremity weakness and found to have what was thought to be possible transverse myelitis. His hospital course his included a healthcare associated pneumonia, septic thrombophlebitis, DVT. He was most recently in the hospital floor where he had significant nausea and vomiting and diarrhea. His C. difficile test was recently negative. However, he has experienced worsening acute on chronic renal failure, hypotension, tachycardia, and severe hypoxemia. He did have a bout of vomiting earlier today, and his hospitalist attending suspects that he may have aspirated. He arrives by rapid response to the ICU with a nonrebreather in place in severe respiratory distress with SPO2 of 85%. I emergently intubate the patient, see separate procedure note for details. At this point the patient was hypotensive and tachycardic. He does have a history of an EF of 20%, however clinically he appears in florid septic shock. I placed central line and arterial line started vasopressors and gentle IV fluid resuscitation with 1 L of LR. Patient today was empirically broadened to vancomycin and Zosyn from his oxacillin which was initially treating MSSA bacteremia. He is recultured. Critical-care medicine is consulted to evaluate and manage his worsening multiorgan system failure and decompensated septic shock 02/21: Patient remains intubated sedated. Becomes anxious tachypnea on sedation lightening. Chest x-ray shows mild left lower lobe infiltrate. WBC count is slightly improved today from 23.2 t0 21. C Diff negative. UO adequate, creat slightly worsening. 1.57 today 02/22: Remains intubated sedated tolerated CPAP yesterday, plan is for EGD/ Colonscopy. WBC count back to normal. UO adequate. Creat stable 02/23: Tolerating CPAP trials following commands. Will do a spontaneous breathing trials. Status post EGD colonoscopy yesterday -Gastritis, esophagitis. Diverticulosis and multiple polyps. Urine output adequate but creatinine increasing to 1.7 with patient requiring multiple straight catheterization. We'll reinsert Sloan. 02/24: Breathing comfortably 24 hours after extubation. Protects airway well. 02/25: Excoriate bottom, will place rectal FMS. Start pureed diet. 02/26: Afebrile. Complaining of nausea and vomiting this afternoon. Increased stool output. Continue potassium replacement today. 02/27: 10 PM overnight, acutely hypotensive. Received 3 units PRBCs. Antibiotic coverage broadened to piperacillin/tazobactam, cortisol and 1 dose of vancomycin. Oxacillin drip currently on hold. Symptomatically, patient continues to vague abdominal pain/nausea vomiting which is unchanged for the past several days. Lipase elevated yesterday. Lactic acid normal. Troponin normal. Urinary retention after removal of Sloan. Straight catheter 1300. Cc 02/28: New diagnosis large retroperitoneal hematoma. Received 10 PRBC, 14 FFP, 2 platelets, 1 cryo-, 6 g calcium chloride, 2 is magnesium sulfate and 4 mg Bumex. CTA abdomen revealed possible arterial bleeds iliac, lumbar. Patient is currently on norepinephrine and epinephrine drips and possible need right nephrostomy tube placement due to large hematoma compressing ureter. Intra-abdominal bladder pressures are currently 13 03/01: Afebrile. Received 25 g albumin and 1 unit PRBCs overnight. Intra- abdominal bladder pressures currently 19. Currently on 3 micrograms per minute of norepinephrine. [id number] 1 out of 4 on 4 mics grams per kilogram per minute of cisatracurium. 03/02: Slightly hypothermic overnight. Hemoglobin appears to have stabilized. Troponin bump overnight likely secondary to demand ischemia from hypotension. Hemodynamically stable off all vasopressors. Subjective 03/03: Received 1 PRBCs overnight. 3 units currently. Off all vasopressors. Likely rebleeding. Stool is dark. 03/04: Remains unstable. Ventilator dependent. Objective Vital Signs Date Time Temp Pulse Resp B/P (MAP) Pulse Ox O2 Delivery O2 Flow Rate FiO2 03/04/17 08:14 98 40 03/04/17 08:00 98.2 90 16 140/77 (98) 03/04/17 07:00 Mechanical Ventilator 02/28/17 07:00 2.00 Intake and Output 03/04/17 03/04/17 03/05/17 08:00 16:00 00:00 Intake Total 0 ml Output Total 325 ml Balance -325 ml Result Diagram: 03/04/17 0430 03/04/17 0430 Imaging Last Impressions Chest X-Ray 03/03/17 0600 Signed Impressions: Service Date/Time: Friday, March 03, 2017 04:24 - CONCLUSION: 1. Tubes and lines in good position. 2. Left base consolidation, atelectasis. Some degree of left effusion should be considered. Angelo Manzo MD Aortography 02/28/17 0000 Signed Impressions: Service Date/Time: Tuesday, February 28, 2017 08:01 - CONCLUSION: 1. Active hemorrhage from distal right lateral sacral and iliolumbar branches successfully coil and Gelfoam embolized, as above. Juan Bhakta MD Abdomen/Pelvis CT 02/28/17 0000 Signed Impressions: Service Date/Time: Tuesday, February 28, 2017 06:51 - CONCLUSION: 1. The right retroperitoneal hematoma has increased in size, as above. There are 2 serpiginous arterially enhancing structures visualized, one in the right psoas muscle and another extending into the hematoma at the right iliac fossa. These could represent sites of continued active bleeding. 2. Stable moderate size left and small right pleural effusion with associated compressive atelectasis. 3. Stable small volume of free fluid in the abdomen and pelvis. There is also anasarca. The findings concerning the retroperitoneal hematoma were discussed with Dr. Aguiar via telephone at approximately 7: 10 AM on 02/28/2017. Angelo Allen MD Chest CT 02/27/17 0000 Signed Impressions: Service Date/Time: Monday, February 27, 2017 18:12 - CONCLUSION: 1. Bilateral pleural effusions with bibasilar atelectasis, left greater than right. Tom Sanchez MD Abdomen X-Ray 02/26/17 0000 Signed Impressions: Service Date/Time: Sunday, February 26, 2017 14:52 - CONCLUSION: 1. Nonobstructive bowel gas pattern. Juan Bhakta MD Upper Extremity Ultrasound 02/10/17 0000 Signed Impressions: Service Date/Time: Friday, February 10, 2017 18:46 - CONCLUSION: Occlusive thrombus in the cephalic and basilic veins. Benjamin Person MD Lung Scan-V Nuclear Medicine 02/10/17 0000 Signed Impressions: Service Date/Time: Friday, February 10, 2017 22:17 - CONCLUSION: Low probability pulmonary embolism. Candido Patton MD Head CT 02/10/17 0000 Signed Impressions: Service Date/Time: Friday, February 10, 2017 23:51 - CONCLUSION: Negative noncontrast CT brain. Candido Patton MD Wrist X-Ray 02/06/17 0000 Signed Impressions: Service Date/Time: Monday, February 06, 2017 12:50 - CONCLUSION: Minimally displaced distal radius and ulnar fractures. Armando Dodd MD Lumbar Puncture Fluoroscopy 02/01/17 0000 Signed Impressions: Service Date/Time: January 09:35 - CONCLUSION: Uncomplicated fluoroscopically guided lumbar puncture. CSF was clear. Nabeel Peralta MD Head Magnetic Resonance Angiography 01/27/17 0000 Signed Impressions: Service Date/Time: Friday, January 27, 2017 10:33 - CONCLUSION: No intracranial vascular abnormality is identified. There is no aneurysm visualized. Angelo Allen MD IVC Filter Placement X-Ray 01/25/17 0000 Signed Impressions: Service Date/Time: January 10:29 - CONCLUSION: Uncomplicated inferior vena cava filter placement as above. Yung Fowler MD Thoracic Spine MRI 01/24/17 0000 Signed Impressions: Service Date/Time: Tuesday, January 24, 2017 22:29 - CONCLUSION: 1. Mild degenerative spondylosis most prominently at T11-L1 with slight effacement of the anterior thecal sac and left lateral recess. No significant neural foraminal stenosis. 2. No acute fracture. Juan Bhakta MD Renal Ultrasound 01/23/17 0000 Signed Impressions: Service Date/Time: Monday, January 23, 2017 08:53 - CONCLUSION: 1. Evidence of chronic parenchymal disease of both kidneys. No obstructive uropathy or other acute abnormality demonstrated. 2. Trace ascites, nonspecific. Angelo Garrido MD Lumbar Spine MRI 01/23/17 Signed Impressions: Service Date/Time: Monday, January 23, 2017 17:01 - CONCLUSION: 1. At L4-5 is a broad-based disc protrusion with severe central canal and lateral recess stenosis and flattening of the exiting right L4 nerve root. 2. L5-S1 there is a disc protrusion and moderate stenosis with flattening of the exiting L5 nerve roots bilaterally. 3. At L3-4 there is a moderate to severe central stenosis and lateral recess stenosis with mild foraminal stenosis. 4. No acute fracture or spondylolisthesis. Trace Holloway MD Lower Extremity Ultrasound 01/23/17 Signed Impressions: Service Date/Time: Monday, January 23, 2017 09:53 - CONCLUSION: Bilateral focal lower extremity DVT involving the posterior tibial veins. Angelo Garrido MD Cervical Spine MRI 01/23/17 Signed Impressions: Service Date/Time: Monday, January 23, 2017 17:01 - CONCLUSION: 1. Multilevel cervical spine degenerative changes as above. 2. Mild degrees of spinal stenosis at C3/C4-C6/C7. No cord compression or cord signal abnormality. 3. Age indeterminate left paracentral/foraminal disc protrusion at C6/C7. 4. Multilevel foraminal stenosis, most severe on the left at C6/C7. Please see individual levels above. 5. No fracture or subluxation of the cervical spine. Angelo Garrido MD Brain MRI 01/23/17 Signed Impressions: Service Date/Time: Monday, January 23, 2017 17:01 - CONCLUSION: 1. No acute stroke or other acute intracranial abnormality demonstrated. 2. Moderate severity chronic white matter changes, nonspecific but most likely related to chronic small vessel disease. 3. Few scattered tiny lacunar infarcts of the brainstem. 4. Given the findings are not entirely specific, clinical evaluation for possible multiple sclerosis recommended. Angelo Garrido MD Knee X-Ray 01/22/[id number] Signed Impressions: Service Date/Time: Sunday, January 22, 2017 21:17 - CONCLUSION: 1. Evidence of moderate to large joint effusion. 2. No acute fracture or malalignment. 3. Mild 3 compartment osteoarthritic change. Benjamin Person MD Hip and Pelvis X-Ray [id number]/22/[id number] Signed Impressions: Service Date/Time: Sunday, January 22, 2017 21:10 - CONCLUSION: 1. Mild to moderate degenerative change of both hips with no acute fracture or malalignment. There is flattening and remodeling of the right humeral head. Benjamin Person MD Objective Remarks GENERAL: 62-year-old male, critically ill currently orotracheally intubated HEENT: Normocephalic. Atraumatic. Pupils equal, round, reactive, conjugate by 3 mm bilaterally. NECK: Trachea is midline. Obese. No JVD or thyromegaly right IJ Cordis and left subclavian TLC, left IJ hemodialysis catheter clean dry and intact CHEST: Diminished breath sounds. Right-sided chest tube -20 cm H2O. 100 cc serosanguineous CARDIOVASCULAR: RRR S1, S2 no S4. ABDOMEN: Distended. Firm to palpation. No bowel sounds are appreciated. Umbilical hernia is reducible. MUSCULOSKELETAL: Pulses 2+. 1+ bilateral upper and lower extremity edema. Wound VAC on left upper extremity NEUROLOGICAL: Currently sedated and ventilated. Procedures IVC filter placement 01/25/2017 LP 01/26/2017 Line: Central Venous Catheter Side: Left Location: Subclavian A/P Problem List: (1) Septic shock ICD Code: A41.9 - Sepsis, unspecified organism; R65.21 - Severe sepsis with septic shock Status: Acute (2) Acute respiratory failure ICD Code: J96.00 - Acute respiratory failure, unspecified whether with hypoxia or hypercapnia Status: Acute (3) Thrombophlebitis arm ICD Code: I80.8 - Phlebitis and thrombophlebitis of other sites (4) Aspiration pneumonia ICD Code: J69.0 - Pneumonitis due to inhalation of food and vomit Status: Acute (5) Atelectasis of left lung ICD Code: J98.11 - Atelectasis Status: Acute (6) Quadriparesis ICD Code: G82.50 - Quadriplegia, unspecified Status: Acute (7) DVT (deep venous thrombosis) ICD Code: I82.409 - Acute embolism and thrombosis of unspecified deep veins of unspecified lower extremity (8) Altered mental status ICD Code: R41.82 - Altered mental status, unspecified Status: Acute (9) CKD (chronic kidney disease) stage 3, GFR 30-59 ml/min ICD Code: N18.3 - Chronic kidney disease, stage 3 (moderate) Status: Chronic (10) Acute renal failure ICD Code: N17.9 - Acute kidney failure, unspecified Status: Acute (11) Diabetes mellitus ICD Code: E11.9 - Type 2 diabetes mellitus without complications Status: Chronic (12) Distal end of ulna fracture, closed ICD Code: S52.609A - Unspecified fracture of lower end of unspecified ulna, initial encounter for closed fracture Status: Acute (13) Gout ICD Code: M10.9 - Gout, unspecified Status: Chronic Assessment and Plan NEURO/PSYCH: Acute metabolic encephalopathy Quadriparesis secondary to suspected transverse myelitis Recurrent falls Patient is currently on Midazolam drip at 7 mg an hour and fentanyl drip at 75 g per minute Goal of RA SS -2 today. Suspected transverse myelitis. Received methylprednisolone 250 mg IV every 6 hours 01/27-02/02, started back on hydrocortisone 02/21/17, initially tapering to 50 mg IV every 8 hours starting received 1 dose at 2100 prior to becoming hypotensive. Currently back on 100 mg IV every 8 hours LP 01/26 and 02/01. CSF culture negative 01/26, 02/01 Oligoclonal bands negative. CSF/serum IgG index is not elevated. VDRL nonreactive. Cryptococcal antigen negative. Brain MRI 01/23 no acute stroke. Few scattered lacunar infarcts of the brainstem. Moderate chronic white matter changes. MRI cervical/thoracic spine- mild spinal stenosis C3/C4 to C6/C7. No cord compression. RPR negative Neurology has been following, Dr. Crenshaw. Repeat CT brain 02/10 - negative Continue PT/OT RESP: Acute hypoxemic respiratory failure Healthcare associated pneumonia/Aspiration Pneumonia Right-sided chest tube [facility] for pleural effusion[facility]1.05/25/39 Ventilator bundle Albuterol/ipratropium aerosols every 6 hours with albuterol aerosols every 2 hours. Dyspnea Spontaneous breathing trials not indicated on paralysis VQ scan 02/10 low probability for PE. CT chest 02/10 - left lower lobe collapse and consolidation. CT chest 02/27 revealed right greater than left pleural effusions. Extubated 02/23. Intubated 02/28 Right-sided chest tube placement 02/28 public health physician. -20 cm water. 60 cc serosanguineous output. CV: Severe sepsis Systolic heart failure likely chronic with ejection fraction 20-25% Hyperlipidemia History of hypertension Mild TR Elevated troponin likely type II demand ischemia Currently on norepinephrine at 3 g per minute to maintain mean arterial pressure greater than or equal to 65 Holding metoprolol and amlodipine in light of current hypotension. Discontinue atorvastatin 10 mg by mouth daily for dyslipidemia. Cardiac index 2.4. SVV 14 Troponin 0.[address]-T changes. Patient denying chest discomfort. 2-D echocardiogram 01/11 revealed EF 20-25%. Per to really reduce left ventricular systolic function. Mild TR. Pulmonary arterial pressures were normal around 20 Troponin currently 6.55 on 03/02 and trending downward. Likely will need stress test of heart once stable. Cannot anticoagulate due to retroperitoneal hematoma the present time GI: Large right retroperitoneal hematoma Severe protein energy malnutrition Nausea/vomiting Diarrhea Gastritis Diverticulosis Internal and external hemorrhoids Hiatal hernia Elevated lipase 02/27 CT chest/abdomen and pelvis - 9.4 x 7.5 renal and 16 x 12 cm right psoas muscle hematoma. Fluid around liver and spleen. Right-sided nephrolithiasis CTA abdomen 02/28 - possible blushing around iliac/lumbar vessels Discussed with IR. We'll attempt embolization today due to use severe acute illness. CT abdomen and pelvis 02/10 atrophic left kidney. Bilateral inguinal hernias fat- containing. Nonobstructing 12 mm right kidney stone repeat CT abd/pelvis did not show evidence of obstruction. patient clinically has been having diarrhea (c. diff negative 02/19). also with nausea/vomiting of unclear etiology. EGD/Colonoscopy-02/22/17 showed gastritis esophagitis, hiatal hernia, diverticulosis and multiple polyps in descending colon and sigmoid which were snared biopsied. Biopsy pending Check C. difficile Holding cholestyramine 4 g every 12 hours for diarrhea Dicyclomine 20 mg 3 times a day Measuring intra-abdominal pressures every [address]. [address] Lewis consulted for intervention if needed Continue on trickle feeds with Nepro 20 cc an hour today FEN/RENAL: Acute kidney injury in the setting of Chronic kidney disease stage 3-4 History of uric acid kidney stones with prior stent BPH Nonfunctioning left kidney Sloan placed due to urinary retention and worsening creatinine. Monitor intake and output q1hr. Monitor electrolytes. RIOS/SPEP negative. 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 Recommended nephrostomy tube if obstruction Nephrology consult for possible hemodialysis Due to acute illness holding tamsulosin 0.4 mg by mouth daily for BPH ID: Septic shock- Abscess and Suppurative thrombophlebitis left upper extremity MSSA bacteremia Klebsiella UTI ESBL positive Acute aspiration pneumonia/HCAP Broad-spectrum antibiotics with oxacillin 2 g IV every 4 hours till March 26 initially. This is been held in light of current change to regimen to fluconazole, ertapenem Blood cultures 2, UA ESBL positive Klebsiella UTI ID on board. f/u cultures form 02/20/17 blood, sputum, urine cultures-all negative to date HEME: Acute blood loss anemia DVT, bilateral posterior tibial vein, IVC filter Septic thrombophlebitis with occlusive thrombus mid cephalic and basilic vein side Received 10 PRBC, 14 FFP, 2 platelets, 1 cryo-02/28 Past 24 hours received 3 units PRBCs Serial hemoglobins every 6 hours Recheck coags Ultrasound 01/23/17 - Bilateral lower extremity with occlusive posterior tibial vein DVTs. Heparin was initially started for DVT but was placed on hold due to LP with suspected traumatic tap. Currently holding full anticoagulation with enoxaparin 100 mg IV twice a day due to anemia as of 02/26 IVC filter was placed 01/25/17. Ultrasound LUE 02/10 occlusive thrombus mid cephalic vein, basilic vein.s. Transfuse 3 units PRBCs 02/27 Transfuse 2 units PRBCs 03/01. ENDO: Diabetes mellitus Hypoglycemia History of prior adrenal insufficiency with shock Gout EGD colonoscopy completed 02/22. gastritis and esophagitis, colon polyps Started Hydrocortisone 100 mg IV q8hr 02/21/17 (Recent high dose steroids use now hypotensive, hypoglycemic) Accu-Cheks to maintain euglycemia Novulin R every 4 hours MSK: Right distal ulna fracture. Dr. Nathan with orthopedics has evaluated and recommended nonoperative management. Right wrist splint in place. PROPH: Pantoprazole 40 mg IV twice a day for stress ulcer prophylaxis. Has IVC filter. Therapeutic enoxaparin currently on hold ACCESS: Left subclavian CVL placed 02/20. Right IJ Cortis placed 02/28. Right radial arterial line placed 02/28. A left IJ hemodialysis catheter placed 03/01. Overall impression: Remains critically ill and continues to require transfusions. Ventilator dependent and unable to wean. Critical care 43 mins Problem Qualifiers (1) Aspiration pneumonia: (2) DVT (deep venous thrombosis): Qualified Codes: I82.443 - Acute embolism and thrombosis of tibial vein, bilateral (3) Acute renal failure: Qualified Codes: N17.9 - Acute kidney failure, unspecified (4) Diabetes mellitus: (5) Gout: Nic West MD Mar 04, 2017 09:30
--- NOTE | 2017-03-04 10:21 | HHI.NPPN ---
Subjective History of Present Illness 61-year-old with history of urinary stone Additional Remarks Remains intubated and sedated. Drop in hemoglobin - given PRBCs Review of Systems General Constitutional: Fatigue Objective Data Data 03/04/17 03/05/17 19:00 07:00 Intake Total 100 ml Balance 100 ml IV Total 100 ml Vital Signs Date Time Temp Pulse Resp B/P (MAP) Pulse Ox O2 Delivery O2 Flow Rate FiO2 03/04/17 08:14 98 40 03/04/17 08:00 40 03/04/17 08:00 98.2 90 16 140/77 (98) 99 03/04/17 08:00 90 03/04/17 07:00 99 Mechanical Ventilator 40 03/04/17 06:00 100 03/04/17 04:05 100 40 03/04/17 04:00 89 03/04/17 04:00 40 03/04/17 04:00 98.0 89 16 136/92 (107) 99 03/04/17 02:00 98 03/04/17 01:21 98 40 03/04/17 00:00 40 03/04/17 00:00 97.8 95 16 125/85 (98) 98 03/03/17 22:00 92 03/03/17 21:55 96 40 03/03/17 20:00 89 03/03/17 20:00 40 03/03/17 20:00 97.8 89 16 140/90 (107) 98 03/03/17 19:00 98 Mechanical Ventilator 40 03/03/17 18:00 93 03/03/17 16:00 95 03/03/17 16:00 98.7 95 16 139/78 (98) 99 03/03/17 16:00 40 03/03/17 14:00 94 03/03/17 12:53 98.5 77 16 165/89 100 03/03/17 12:51 100 40 03/03/17 12:00 40 03/03/17 12:00 98.6 84 16 162/90 (114) 99 03/03/17 12:00 84 03/03/17 10:53 98.6 82 16 164/82 99 03/03/17 10:38 98.3 82 16 161/87 99 -: 03/04/17 0430 03/04/17 0430 Physical Exam General Appearance: Pale Eyes Eye Exam: Pupils Equal Throat Throat Exam: Oral Mucosa [place] & Moist Neck Neck Exam: Neck Supple Pulmonary Resp Exam: Crackles, Rhonchi, Decreased Bases, Diminished Breath Sounds Cardiology CV Exam: Normal Sinus Rhythm, Tachycardia Gastrointestinal/Abdomen GI Exam: Non-Tender, Distended Extremeties Extremities Exam: Moderate Edema Assessment/Plan Problem List: (1) Acute renal failure ICD Codes: N17.9 - Acute kidney failure, unspecified Status: Acute Plan: Patient developed Hypotension,sepsis staph aureus respiratory failure and increase WBC. Had aspiration pneumonia, developed sepsis with ARF again creatinine declined slightly post hydration he also had retroperitoneal bleed Elevated intra abdominal pressures - improved now. Surgery following no compartment syndrome Isolated UF done Sunday with 1.5L UF. Making some urine with 625cc/ 24 hours, continue to monitor. Consider for next HD/UF Sunday for volume control. 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 (2) CKD (chronic kidney disease) stage 3, GFR 30-59 ml/min ICD Codes: N18.3 - Chronic kidney disease, stage 3 (moderate) Status: Chronic Plan: Ultrasound revealed chronic kidney disease there is no kidney stones (3) Diabetes ICD Codes: E11.9 - Type 2 diabetes mellitus without complications Plan: Continue to monitor (4) Distal end of ulna fracture, closed ICD Codes: S52.609A - Unspecified fracture of lower end of unspecified ulna, initial encounter for closed fracture Status: Acute Plan: Orthopedic is following Problem Qualifiers (1) Acute renal failure: Qualified Codes: N17.9 - Acute kidney failure, unspecified Nabeel Singer MD Mar 04, 2017 10:21
[2017-03-04] MEDS: PANTOPRAZOLE SODIUM 40 MG VIAL IV PUSH SCH ×2 (12:21→22:20)
[2017-03-04] MEDS: SODIUM CHLOR 0.9% 1000 ML INJ 1,000 ML IV SCH (12:23)
--- NOTE | 2017-03-04 16:34 | HHI.IDPN ---
Note Infectious Disease Note Patient is a 62-year-old male, admitted to the hospital for evaluation of pain in his right wrist. He gave a history of falling about a week ago and apparently had immediate pain in the right wrist. He did not seek any medical attention initially because reportedly he was very busy. He eventually presented, and he was found to have a distal ulnar fracture on plain films. He also had some redness and swelling. Orthopedics saw the patient, and was being treated conservatively with the splint. During this hospitalization also he started complaining of generalized weakness but more so in his lower extremity than his upper extremity. He had swelling in both lower extremity which revealed evidence of DVT in the posterior tibial veins. Neurology had seen the patient and he underwent lumbar puncture which apparently was traumatic. Patient was therefore not given anticoagulation because of the traumatic LP, and he underwent placement of an IVC filter on January 25. Patient had another lumbar puncture on February 01. He was felt to have transverse myelitis, and he was given high-dose IV Solu-Medrol from January 27 to February 02. There was apparently some improvement in his weakness. The imaging studies done for his weakness showed some spinal stenosis, and neurosurgery was consult that and recommended that there was no surgical intervention to be done. Patient has been stabilizing, but last night apparently deteriorated, and he ended up getting intubated, and had significant hypotension requiring pressors. There was also an ultrasound done of his left upper extremity which showed DVT, and there was evidence of superior 2 thrombophlebitis. Vascular surgery was consult to it and he had IND on his left upper extremity. Patient has had some fevers since yesterday. 2 blood cultures were done yesterday and they're now reported as growing gram-positive cocci in [place] in clusters. He is currently sedated and intubated. He is on Levophed and vasopressin. A central line was placed as well as a femoral a line. He apparently had an IV in his left upper extremity and that was removed yesterday. Patient also has history of chronic kidney disease, and nephrology evaluated the patient. He was just being monitored for his renal insufficiency. Infectious disease consultation has been requested to evaluate the patient. ID coverage. Notes reviewed D/W RN No acute events overnight. Has large R retroperitoneal hematoma and had coiling of bleeder yesterday Antibiotics Vancomycin Invanz Diflucan Lines C TLC RIMillie cook Past Medical History Reviewed Allergies: Coded Allergies: levofloxacin (Verified Allergy, Severe, 01/22/17) Objective . Vital Signs Date Time Temp Pulse Resp B/P (MAP) Pulse Ox O2 Delivery O2 Flow Rate FiO2 03/04/17 14:13 98 40 03/04/17 12:00 40 03/04/17 12:00 98.1 100 16 141/86 (104) 98 03/04/17 12:00 100 03/04/17 11:37 98 40 03/04/17 10:00 98 03/04/17 08:14 98 40 03/04/17 08:00 40 03/04/17 08:00 98.2 90 16 140/77 (98) 99 03/04/17 08:00 90 03/04/17 07:00 99 Mechanical Ventilator 40 03/04/17 06:00 100 03/04/17 04:05 100 40 03/04/17 04:00 89 03/04/17 04:00 40 03/04/17 04:00 98.0 89 16 136/92 (107) 99 03/04/17 02:00 98 03/04/17 01:21 98 40 03/04/17 00:00 40 03/04/17 00:00 97.8 95 16 125/85 (98) 98 03/03/17 22:00 92 03/03/17 21:55 96 40 03/03/17 20:00 89 03/03/17 20:00 40 03/03/17 20:00 97.8 89 16 140/90 (107) 98 03/03/17 19:00 98 Mechanical Ventilator 40 03/03/17 18:00 93 Laboratory Tests Test 03/03/17 17:55 03/03/17 23:21 03/04/17 04:30 03/04/17 04:59 Hemoglobin 11.2 GM/DL 10.8 GM/DL 10.1 GM/DL Hematocrit 33.0 % 31.4 % 30.1 % White Blood Count 13.6 TH/MM3 Red Blood Count 3.45 MIL/MM3 Mean Corpuscular Volume 87.3 FL Mean Corpuscular Hemoglobin 29.3 PG Mean Corpuscular Hemoglobin Concent 33.5 % Red Cell Distribution Width 15.4 % Platelet Count 87 TH/MM3 Mean Platelet Volume 8.8 FL Neutrophils (%) (Auto) 90.5 % Lymphocytes (%) (Auto) 2.1 % Monocytes (%) (Auto) 7.3 % Eosinophils (%) (Auto) 0.0 % Basophils (%) (Auto) 0.1 % Neutrophils # (Auto) 12.3 TH/MM3 Lymphocytes # (Auto) 0.3 TH/MM3 Monocytes # (Auto) 1.0 TH/MM3 Eosinophils # (Auto) 0.0 TH/MM3 Basophils # (Auto) 0.0 TH/MM3 CBC Comment AUTO DIFF Differential Total Cells Counted 100 Neutrophils % (Manual) 95 % Band Neutrophils % 1 % Monocytes % 4 % Neutrophils # (Manual) 13.1 TH/MM3 Differential Comment FINAL DIFF MANUAL Platelet Estimate LOW Platelet Morphology Comment NORMAL Red Cell Morphology Comment NORMAL Blood Urea Nitrogen 33 MG/DL Creatinine 2.11 MG/DL Random Glucose 180 MG/DL Total Protein 4.9 GM/DL Albumin 2.0 GM/DL Calcium Level 7.7 MG/DL Phosphorus Level 4.5 MG/DL Magnesium Level 1.8 MG/DL Alkaline Phosphatase 68 U/L Aspartate Amino Transf (AST/SGOT) 11 U/L Alanine Aminotransferase (ALT/SGPT) 14 U/L Total Bilirubin 0.4 MG/DL Sodium Level 147 MEQ/L Potassium Level 3.7 MEQ/L Chloride Level 113 MEQ/L Carbon Dioxide Level 21.5 MEQ/L Anion Gap 13 MEQ/L Estimat Glomerular Filtration Rate 32 ML/MIN Lactic Acid Level 1.1 mmol/L Total Creatine Kinase 51 U/L Prothrombin Time 11.1 SEC Prothromb Time International Ratio 1.0 RATIO Activated Partial Thromboplast Time 30.9 SEC Fibrinogen 500 mg/dL Imaging Chest X-Ray 03/04/17 0600 Signed Impressions: Service Date/Time: Saturday, March 04, 2017 04:41 - CONCLUSION: 1. Left base atelectasis, consolidation and effusion. 2. Tubes and lines are in good position. 3. A pneumothorax is not seen. Angelo Manzo MD Chest X-Ray 03/03/17 0600 Signed Impressions: Service Date/Time: Friday, March 03, 2017 04:24 - CONCLUSION: 1. Tubes and lines in good position. 2. Left base consolidation, atelectasis. Some degree of left effusion should be considered. Angelo Manzo MD Chest X-Ray 03/03/17 0000 Signed Impressions: Service Date/Time: Friday, March 03, 2017 18:24 - CONCLUSION: Interval placement of a right internal jugular central venous catheter which is in good position. No evidence of pneumothorax. Persistent airspace disease and small bilateral effusions. Lenny Ware MD Chest X-Ray 03/02/17 0600 Signed Impressions: Service Date/Time: Thursday, March 02, 2017 01:56 - CONCLUSION: 1. Supine apparatus in good position. Bilateral space disease, left greater than right. Left-sided pleural effusion similar to prior exam. Trace Holloway MD Physical Exam GENERAL:Sedated. On vent, NAD, looks edematous. SKIN: Cool and dry. No generalized rash. HEENT: [place] conjunctiva. No petechia or hemorrhage. ET in mouth NECK: Trachea midline. Supple and no meningeal signs CARDIOVASCULAR: Regular rate and rhythm. No murmurs, rubs or gallops heard RESPIRATORY: Coarse BS bilaterally, ABDOMEN: Soft, mildly distended. EXTREMITIES: No clubbing, cyanosis. Both hands less edematous. Has evidence of multiple gouty tophi in both hands and feet. LUE - wound vac in place NEUROLOGICAL: Sedated PSYCHIATRIC: Unable to assess LINE: Lines with no evidence of infection Assessment & Plan IMPRESSION New shock, due to large R retroperitoneal bleed, S/P multiple transfusions and S/P coiling of bleeders Elevated amylase and lipase, ?due to shock Anemia, due to bleed, retroperitoneal MSSA sepsis, due to suppurative thrombophlebitis LUE, S/P I and D and excision of portion of cephalic vein Respiratory failure, has had several intubations - reintubated again 02/28 Recent Rx 7 days high dose solumedrol for transverse myelitis Wu LE DVT has IVC filter placed 01/25 - ?hypercoagulable state Chronic kidney disease, worsening creatinine - shock and compression of ureter by hematoma Known DM, HTN Gouty tophi both hands and feet Diarrhea, C diff negative UTI, GNR Thrombocytopenia, no evidence of DIC, ?meds, ?infection, ?due to bleed RECOMMENDATION Dose of Vancomycin. Continue Invanz Monitor H/H Follow platelet count Monitor temps Monitor progress. Douglas Acevedo MD Mar 04, 2017 16:34
[2017-03-04] MEDS ORDERED: VANCOMYCIN INJ 1,000 MG in SODIUM CHLOR 0.9% 250 ML INJ 250 ML IV ONE (16:45)
[2017-03-04] MEDS: ERTAPENEM INJ 1,000 MG in SODIUM CHLORIDE 0.9% INJ 100 ML IV SCH (21:13)
[2017-03-05] VITALS (17 sets, daily range): BP systolic 127–152; BP diastolic 84–101; PULSE 95–117; RESP 12–20; TEMP 98–99.5; O2SAT 95–98
[2017-03-05] MEDS: fentaNYL DRIP 250 ML IV PRN (01:54)
[2017-03-05] MEDS: RESP: ALBUTEROL 2.5 MG/IPRATROPIUM 0.5 MG NEB (SCH) NEB ×4 (03:01→21:59)
[2017-03-05] MEDS: SODIUM CHLOR 0.9% 1000 ML INJ 1,000 ML IV SCH (03:36)
[2017-03-05] MEDS: INSULIN NovoLIN REGULAR SUPPLEMENTAL SCALE SQ SCH ×5 (05:21→20:28)
--- NOTE | 2017-03-05 05:45 | RADRPT ---
EXAM DATE/TIME: 03/05/2017 05:03 [facility] COMPARISON: CHEST SINGLE AP, March 04, 2017, 4:41. INDICATIONS : Short of breath. MEDICAL HISTORY : Chronic obstructive pulmonary disease. Diabetes mellitus type II. SURGICAL HISTORY : Renal stents ENCOUNTER: Subsequent ACUITY: 1 month PAIN SCORE: 0/10 LOCATION: Bilateral chest FINDINGS: The cardiac silhouette is enlarged in transverse diameter. There is left lower lobe atelectasis versu s pneumonia. Support lines and tubes are in satisfactory position. CONCLUSION: 1. Left lower lobe atelectasis versus pneumonia. There has been no significant change when compared t o the prior exam. Yung Fowler MD on March 05, 2017 at 5:43 Board Certified Radiologist. This report was verified electronically.
[2017-03-05] MEDS: METOCLOPRAMIDE HCL 10 MG/2 ML VIAL IV PUSH SCH ×3 (06:24→21:14)
[2017-03-05] MEDS: ARTIFICIAL TEARS OPTH SOLN 15 ML BTL EACH EYE SCH ×3 (06:24→21:14)
[2017-03-05] MEDS: HYDROCORTISONE SOD SUCCINATE 100 MG VIAL IV SCH ×3 (06:24→21:14)
[2017-03-05 06:51] LABS: BICARBONATE 22.2 MEQ/L (21.0-32.0); POTASSIUM 3.4 MEQ/L (3.5-5.1)
[2017-03-05 07:14] LABS: MEAN CELL VOLUME 87.5 FL (80.0-100.0); MEAN CORPUSCULAR HEMOGLOBIN 29.7 PG (27.0-34.0); MEAN CORPUSCULAR HGB CONC 33.9 % (32.0-36.0); PLATELET COUNT 112 TH/MM3 (150-450); RED BLOOD COUNT 3.08 MIL/MM3 (4.50-5.90); RED CELL DISTRIBUTION WIDTH 15.3 % (11.6-17.2); WHITE BLOOD COUNT 14.9 TH/MM3 (4.0-11.0)
[2017-03-05 07:22] LABS: HEMO FLAGS AUTO DIFF
[2017-03-05] MEDS ORDERED: POTASSIUM PHOSPHATE INJ 30 MMOL in SODIUM CHLOR 0.9% 250 ML INJ 250 ML IV PRN (07:45)
[2017-03-05] MEDS ORDERED: POTASSIUM CHLOR 40 MEQ PREMIX 100 ML IV PRN ×2 (07:45)
[2017-03-05] MEDS: FREE WATER G-TUBE SCH ×4 (07:45→23:14)
[2017-03-05] MEDS ORDERED: POTASSIUM PHOSPHATE MONOBASIC 500 MG TAB PO/TUBE PRN (07:45)
[2017-03-05] MEDS ORDERED: POTASSIUM CHLOR 20 MEQ PREMIX 100 ML IV PRN ×2 (07:45)
[2017-03-05] MEDS ORDERED: POTASSIUM PHOSPHATE MONOBASIC 500 MG TAB PO PRN (07:45)
[2017-03-05] MEDS ORDERED: MAGNESIUM SULFATE INJ 4 GM in SODIUM CHLORIDE 0.9% INJ 92 ML IV PRN (07:45)
[2017-03-05] MEDS ORDERED: MAGNESIUM OXIDE 400 MG TAB PO PRN (07:45)
[2017-03-05] MEDS ORDERED: MAGNESIUM SULFATE INJ 2 GM in SODIUM CHLORIDE 0.9% INJ 96 ML IV PRN (07:45)
[2017-03-05] MEDS ORDERED: POTASSIUM CHLORIDE 25 MEQ EFFERVESCENT TAB PO ONE (07:45)
[2017-03-05] MEDS ORDERED: SODIUM PHOSPHATE INJ 30 MMOL in SODIUM CHLOR 0.9% 250 ML INJ 240 ML IV PRN (07:45)
[2017-03-05 07:53] LABS: NEUTROPHIL # MANUAL DIFF 14.2 TH/MM3 (1.8-7.7); POLYS (SEG NEUTROPHILS) 95 % (16-70); WBC DIFF SAMPLE 100
[2017-03-05 07:54] LABS: PLATELET ESTIMATE SMEAR LOW (NORMAL); PLATELET MORPHOLOGY NORMAL (NORMAL); SCAN/DIFF FINAL DIFF MANUAL
[2017-03-05] MEDS ORDERED: oxyCODONE HCL ORAL CONC 20 MG/ML SYRINGE PO SCH (08:00)
--- NOTE | 2017-03-05 08:01 | HHI.CCPN ---
Subjective Remarks/Hospital Course Date of admission: 01/22 Date of critical care medicine consult 02/10 due to acute hypoxemic respiratory failure requiring emergent intubation 62-year-old male with a past medical history of hypertension, hyperlipidemia, diabetes mellitus, gout, uric acid kidney stones, kidney disease of unknown stage who originally presented to [facility] emergency department on 01/22 after a fall in which he sustained a right distal ulna fracture. He had been experiencing a gradual primarily lower extremity weakness as well as upper extremity weakness that was progressive. Neurology consult was obtained. MRI revealed no acute stroke. He had multifocal white matter changes. Tiny lacunar infarcts of the brainstem. Lumbar MRI report states L4-L5 disc protrusion with cetnral canal stenosis. Dr. Blackwell evaluated and states no cord compression on MRI C/T spine and recommended nonoperative management. Symptoms were felt to be consistent with transverse myelitis and he underwent Solumedrol 250 mg IV q6 hours 01/27-02/02. He also was found to have occlusive thrombus in the bilateral posterior tibial veins. Heparin was being avoided because he had traumatic lumbar puncture on 01/26 and 02/01. IVC filter was placed 01/25. He was undergoing physical therapy, reportedly making some improvements with plan to eventually discharged home with his son (max assist standing, and bed to chair per PT note). Apparently he had some vomiting the evening of 02/09 and additional vomiting on 02/10. He had a fever 102.8 on 02/09. Last recorded bowel movement was 02/03. Tonight he had acute onset of severe hypoxemia and respiratory distress. [facility] called and he was brought emergently to [facility] where his sats were 64% on 100% nonrebreather with mean arterial pressure 44. He was emergently intubated, CVL and art line placed. He is in septic shock. SUBJ: 02/11: Patient remains intubated sedated, critically ill. FiO2 reduced to 80% after increasing PEEP to 12. In severe septic shock Levophed at 16 mcg/m, vasopressin at 0.04 international units. D/W vascular surgery Dr. Enciso. He performed bedside Left upper extremity incision and debridement and excision of septic cephalic vein. 02/12: Remains intubated sedated profoundly septic, in shock on vasopressin and 7 mcg/min Levophed. FiO2 has improved to 45%, WBC count remains elevated with 20 ,000 white count significant left shift. Slight improvement in creatinine 2.9 urine output 750 ml 24 hours. 2-D echo shows LV ejection fraction 20-25%, no vegetation reported. Blood cultures 4 staph aureus. Wound culture pending 02/13: Remains critically ill but stable to improving. WBC count is down to 16, creatinine improving to 2.36. Off all pressors. Urine output also improving. 1.5L in 24 hours 02/14: Extubated 02/13. Tolerating well. WBC now down to 12.8. Creat improving 2.3 to 2. UO 3.4L. remains off all pressors. Was started on Precedex yesterday night for agitation, currently on 0.5 g per KG per hour. Chest x-ray shows left more than right air space disease 02/20/17 Re consult: 62-year-old male who was originally admitted for lower extremity weakness and found to have what was thought to be possible transverse myelitis. His hospital course his included a healthcare associated pneumonia, septic thrombophlebitis, DVT. He was most recently in the hospital floor where he had significant nausea and vomiting and diarrhea. His C. difficile test was recently negative. However, he has experienced worsening acute on chronic renal failure, hypotension, tachycardia, and severe hypoxemia. He did have a bout of vomiting earlier today, and his hospitalist attending suspects that he may have aspirated. He arrives by rapid response to the ICU with a nonrebreather in place in severe respiratory distress with SPO2 of 85%. I emergently intubate the patient, see separate procedure note for details. At this point the patient was hypotensive and tachycardic. He does have a history of an EF of 20%, however clinically he appears in florid septic shock. I placed central line and arterial line started vasopressors and gentle IV fluid resuscitation with 1 L of LR. Patient today was empirically broadened to vancomycin and Zosyn from his oxacillin which was initially treating MSSA bacteremia. He is recultured. Critical-care medicine is consulted to evaluate and manage his worsening multiorgan system failure and decompensated septic shock 02/21: Patient remains intubated sedated. Becomes anxious tachypnea on sedation lightening. Chest x-ray shows mild left lower lobe infiltrate. WBC count is slightly improved today from 23.2 t0 21. C Diff negative. UO adequate, creat slightly worsening. 1.57 today 02/22: Remains intubated sedated tolerated CPAP yesterday, plan is for EGD/ Colonscopy. WBC count back to normal. UO adequate. Creat stable 02/23: Tolerating CPAP trials following commands. Will do a spontaneous breathing trials. Status post EGD colonoscopy yesterday -Gastritis, esophagitis. Diverticulosis and multiple polyps. Urine output adequate but creatinine increasing to 1.7 with patient requiring multiple straight catheterization. We'll reinsert Sloan. 02/24: Breathing comfortably 24 hours after extubation. Protects airway well. 02/25: Excoriate bottom, will place rectal FMS. Start pureed diet. 02/26: Afebrile. Complaining of nausea and vomiting this afternoon. Increased stool output. Continue potassium replacement today. 02/27: 10 PM overnight, acutely hypotensive. Received 3 units PRBCs. Antibiotic coverage broadened to piperacillin/tazobactam, cortisol and 1 dose of vancomycin. Oxacillin drip currently on hold. Symptomatically, patient continues to vague abdominal pain/nausea vomiting which is unchanged for the past several days. Lipase elevated yesterday. Lactic acid normal. Troponin normal. Urinary retention after removal of Sloan. Straight catheter 1300. Cc 02/28: New diagnosis large retroperitoneal hematoma. Received 10 PRBC, 14 FFP, 2 platelets, 1 cryo-, 6 g calcium chloride, 2 is magnesium sulfate and 4 mg Bumex. CTA abdomen revealed possible arterial bleeds iliac, lumbar. Patient is currently on norepinephrine and epinephrine drips and possible need right nephrostomy tube placement due to large hematoma compressing ureter. Intra-abdominal bladder pressures are currently 13 03/01: Afebrile. Received 25 g albumin and 1 unit PRBCs overnight. Intra- abdominal bladder pressures currently 19. Currently on 3 micrograms per minute of norepinephrine. [id number] 1 out of 4 on 4 mics grams per kilogram per minute of cisatracurium. 03/02: Slightly hypothermic overnight. Hemoglobin appears to have stabilized. Troponin bump overnight likely secondary to demand ischemia from hypotension. Hemodynamically stable off all vasopressors. 03/03: Received 1 PRBCs overnight. 3 units currently. Off all vasopressors. Likely rebleeding. Stool is dark. 03/04: Remains unstable. Ventilator dependent. Subjective 03/05: afebrile. hgb stable. Objective Vital Signs Date Time Temp Pulse Resp B/P (MAP) Pulse Ox O2 Delivery O2 Flow Rate FiO2 03/05/17 06:00 105 03/05/17 04:00 98.0 16 135/86 (102) 95 03/05/17 04:00 40 03/04/17 19:00 Mechanical Ventilator Intake and Output 03/05/17 03/05/17 03/06/17 08:00 16:00 00:00 Intake Total 642.6 ml Output Total 410 ml Balance 232.6 ml Result Diagram: 03/05/17 0644 03/05/17599 Imaging Last Impressions Chest X-Ray 03/03/17599 Signed Impressions: Service Date/Time: Friday, March 03, 2017 04:24 - CONCLUSION: 1. Tubes and lines in good position. 2. Left base consolidation, atelectasis. Some degree of left effusion should be considered. Angelo Manzo MD Aortography 02/28/17 0000 Signed Impressions: Service Date/Time: Tuesday, February 28, 2017 08:01 - CONCLUSION: 1. Active hemorrhage from distal right lateral sacral and iliolumbar branches successfully coil and Gelfoam embolized, as above. Juan Bhakta MD Abdomen/Pelvis CT 02/28/17 0000 Signed Impressions: Service Date/Time: Tuesday, February 28, 2017 06:51 - CONCLUSION: 1. The right retroperitoneal hematoma has increased in size, as above. There are 2 serpiginous arterially enhancing structures visualized, one in the right psoas muscle and another extending into the hematoma at the right iliac fossa. These could represent sites of continued active bleeding. 2. Stable moderate size left and small right pleural effusion with associated compressive atelectasis. 3. Stable small volume of free fluid in the abdomen and pelvis. There is also anasarca. The findings concerning the retroperitoneal hematoma were discussed with Dr. Aguiar via telephone at approximately 7: 10 AM on 02/28/2017. Angelo Allen MD Chest CT 02/27/17 0000 Signed Impressions: Service Date/Time: Monday, February 27, 2017 18:12 - CONCLUSION: 1. Bilateral pleural effusions with bibasilar atelectasis, left greater than right. Tom Sanchez MD Abdomen X-Ray 02/26/17 0000 Signed Impressions: Service Date/Time: Sunday, February 26, 2017 14:52 - CONCLUSION: 1. Nonobstructive bowel gas pattern. Juan Bhakta MD Upper Extremity Ultrasound 02/10/17 0000 Signed Impressions: Service Date/Time: Friday, February 10, 2017 18:46 - CONCLUSION: Occlusive thrombus in the cephalic and basilic veins. Benjamin Person MD Lung Scan-V Nuclear Medicine 02/10/17 0000 Signed Impressions: Service Date/Time: Friday, February 10, 2017 22:17 - CONCLUSION: Low probability pulmonary embolism. Candido Patton MD Head CT 02/10/17 0000 Signed Impressions: Service Date/Time: Friday, February 10, 2017 23:51 - CONCLUSION: Negative noncontrast CT brain. Candido aPtton MD Wrist X-Ray 02/06/17 0000 Signed Impressions: Service Date/Time: Monday, February 06, 2017 12:50 - CONCLUSION: Minimally displaced distal radius and ulnar fractures. Armando Dodd MD Lumbar Puncture Fluoroscopy 02/01/17 0000 Signed Impressions: Service Date/Time: January 09:35 - CONCLUSION: Uncomplicated fluoroscopically guided lumbar puncture. CSF was clear. Nabeel Peralta MD Head Magnetic Resonance Angiography 01/27/17 0000 Signed Impressions: Service Date/Time: Friday, January 27, 2017 10:33 - CONCLUSION: No intracranial vascular abnormality is identified. There is no aneurysm visualized. Angelo Allen MD IVC Filter Placement X-Ray 01/25/17 0000 Signed Impressions: Service Date/Time: January 10:29 - CONCLUSION: Uncomplicated inferior vena cava filter placement as above. Yung Fowler MD Thoracic Spine MRI 01/24/17 0000 Signed Impressions: Service Date/Time: Tuesday, January 24, 2017 22:29 - CONCLUSION: 1. Mild degenerative spondylosis most prominently at T11-L1 with slight effacement of the anterior thecal sac and left lateral recess. No significant neural foraminal stenosis. 2. No acute fracture. Juan Bhakta MD Renal Ultrasound 9/5/17 0000 Signed Impressions: Service Date/Time: Monday, January 23, 2017 08:53 - CONCLUSION: 1. Evidence of chronic parenchymal disease of both kidneys. No obstructive uropathy or other acute abnormality demonstrated. 2. Trace ascites, nonspecific. Angelo Garrido MD Lumbar Spine MRI 01/23/17 0000 Signed Impressions: Service Date/Time: Monday, January 23, 2017 17:01 - CONCLUSION: 1. At L4-5 is a broad-based disc protrusion with severe central canal and lateral recess stenosis and flattening of the exiting right L4 nerve root. 2. L5-S1 there is a disc protrusion and moderate stenosis with flattening of the exiting L5 nerve roots bilaterally. 3. At L3-4 there is a moderate to severe central stenosis and lateral recess stenosis with mild foraminal stenosis. 4. No acute fracture or spondylolisthesis. Trace Holloway MD Lower Extremity Ultrasound 01/23/17 Signed Impressions: Service Date/Time: Monday, January 23, 2017 09:53 - CONCLUSION: Bilateral focal lower extremity DVT involving the posterior tibial veins. Angelo Garrido MD Cervical Spine MRI 01/23/17 Signed Impressions: Service Date/Time: Monday, January 23, 2017 17:01 - CONCLUSION: 1. Multilevel cervical spine degenerative changes as above. 2. Mild degrees of spinal stenosis at C3/C4-C6/C7. No cord compression or cord signal abnormality. 3. Age indeterminate left paracentral/foraminal disc protrusion at C6/C7. 4. Multilevel foraminal stenosis, most severe on the left at C6/C7. Please see individual levels above. 5. No fracture or subluxation of the cervical spine. Angelo Garrido MD Brain MRI 01/23/17 0000 Signed Impressions: Service Date/Time: Monday, January 23, 2017 17:01 - CONCLUSION: 1. No acute stroke or other acute intracranial abnormality demonstrated. 2. Moderate severity chronic white matter changes, nonspecific but most likely related to chronic small vessel disease. 3. Few scattered tiny lacunar infarcts of the brainstem. 4. Given the findings are not entirely specific, clinical evaluation for possible multiple sclerosis recommended. Angelo Garrido MD Knee X-Ray 01/22/172053 Signed Impressions: Service Date/Time: Sunday, January 22, 2017 21:17 - CONCLUSION: 1. Evidence of moderate to large joint effusion. 2. No acute fracture or malalignment. 3. Mild 3 compartment osteoarthritic change. Benjamin Person MD Hip and Pelvis X-Ray 01/22/172053 Signed Impressions: Service Date/Time: Sunday, January 22, 2017 21:10 - CONCLUSION: 1. Mild to moderate degenerative change of both hips with no acute fracture or malalignment. There is flattening and remodeling of the right humeral head. Benjamin Person MD Objective Remarks GENERAL: 62-year-old male, critically ill currently orotracheally intubated HEENT: Normocephalic. Atraumatic. Pupils equal, round, reactive, conjugate by 3 mm bilaterally. NECK: Trachea is midline. Obese. No JVD or thyromegaly right IJ Cordis and left subclavian TLC, left IJ hemodialysis catheter clean dry and intact CHEST: Diminished breath sounds. Right-sided chest tube -20 cm H2O. 100 cc serosanguineous CARDIOVASCULAR: RRR S1, S2 no S4. ABDOMEN: Distended. Firm to palpation. No bowel sounds are appreciated. Umbilical hernia is reducible. MUSCULOSKELETAL: Pulses 2+. 1+ bilateral upper and lower extremity edema. Wound VAC on left upper extremity NEUROLOGICAL: Currently sedated and ventilated. Procedures IVC filter placement 01/25/2017 LP 01/26/2017 Line: Central Venous Catheter Side: Left Location: Subclavian A/P Assessment and Plan Assessment: 62yM with dilated cardiomyopathy, EF 20%, transverse myelitis, course complicated by multiple re-intubations, HCAP, and spontaneous life- threatening retroperitoneal bleeding, DVTs, and now [id number] renal failure/kidney injury requiring renal replacement therapy in the ICU. He remains very critically ill with multiple organ systems involved. respiratory failure has been refractory to weaning secondary to his multiple organ failure. off pathway. NEURO/PSYCH: Acute metabolic encephalopathy- persistent Quadriparesis secondary to suspected transverse myelitis Recurrent falls Pain secondary to retroperitoneal hematoma. start oxycodone 10mg po q4h scheduled for pain start propofol for sedation, goal RASS -2. d/c midazolam drip as the half-life with acute renal failure is long and will take days to clear. continue fentanyl for additional pain control/sedation. Suspected transverse myelitis. Received methylprednisolone 250 mg IV every 6 hours 01/27-02/02, started back on hydrocortisone 02/21/17, initially tapering to 50 mg IV every 8 hours starting received 1 dose at 2100 prior to becoming hypotensive. Currently back on 100 mg IV every 8 hours. will again start taper. LP 01/26 and 02/01. CSF culture negative 01/26, 02/01 Oligoclonal bands negative. CSF/serum IgG index is not elevated. VDRL nonreactive. Cryptococcal antigen negative. Brain MRI 01/23 no acute stroke. Few scattered lacunar infarcts of the brainstem. Moderate chronic white matter changes. MRI cervical/thoracic spine- mild spinal stenosis C3/C4 to C6/C7. No cord compression. RPR negative Neurology has been following, Dr. Crenshaw. Repeat CT brain 02/10 - negative Continue PT/OT RESP: Acute hypoxemic respiratory failure Healthcare associated pneumonia/Aspiration Pneumonia Right-sided chest tube placed for pleural effusion. PRVC Ventilator bundle Albuterol/ipratropium aerosols every 6 hours with albuterol aerosols every 2 hours prn VQ scan 02/10 low probability for PE. CT chest 02/10 - left lower lobe collapse and consolidation. CT chest 02/27 revealed right greater than left pleural effusions. Extubated 02/23. Intubated 02/28 Right-sided chest tube placement 02/28 slip laster. -20 cm water. no output. no air leak. chest tube in subcutaneous tissues on today's cxr. will d/c today. CV: Severe sepsis - resolved. Systolic heart failure likely chronic with ejection fraction 20-25% Hyperlipidemia History of hypertension Mild TR Elevated troponin likely type II demand ischemia off vasopressors. Holding metoprolol and amlodipine in light of recent hypotension. restart atorvastatin 10 mg by mouth daily for dyslipidemia. Troponin 0.[address]-T changes. Patient denying chest discomfort. 2-D echocardiogram 01/11 revealed EF 20-25%. Mild TR. Pulmonary arterial pressures were normal around 20 Troponin 6.55 on 03/02 and trending downward. Likely will need stress test of heart once stable. Cannot anticoagulate due to retroperitoneal hematoma the present time GI: Large right retroperitoneal hematoma Severe acute protein calorie malnutrition Nausea/vomiting - resolved. Diarrhea Gastritis Diverticulosis Internal and external hemorrhoids Hiatal hernia Elevated lipase Hypernatremia Hypokalemia 02/27 CT chest/abdomen and pelvis - 9.4 x 7.5 renal and 16 x 12 cm right psoas muscle hematoma. Fluid around liver and spleen. Right-sided nephrolithiasis CTA abdomen 02/28 - possible blushing around iliac/lumbar vessels Discussed with IR. s/p attempted embolization CT abdomen and pelvis 02/10 atrophic left kidney. Bilateral inguinal hernias fat- containing. Nonobstructing 12 mm right kidney stone repeat CT abd/pelvis did not show evidence of obstruction. patient clinically has been having diarrhea (c. diff negative 02/19). also with nausea/vomiting of unclear etiology. EGD/Colonoscopy-02/22/17 showed gastritis esophagitis, hiatal hernia, diverticulosis and multiple polyps in descending colon and sigmoid which were snared biopsied. Biopsy pending Dr. Lewis consulted for intervention if needed for elevated IAP. will continue to check daily. Continue on trickle feeds with Nepro 20 cc an hour today. increase to 30/day today. Add free water 200 mL q6h for hypernatremia replace K with 50meq eff PO and start ICU electrolyte replacement protocol daily BMP FEN/RENAL: Acute kidney injury in the setting of Chronic kidney disease stage 3-4 History of uric acid kidney stones with prior stent BPH Nonfunctioning left kidney Sloan placed due to urinary retention and worsening creatinine. Monitor intake and output q1hr. Monitor electrolytes. RIOS/SPEP negative. 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 Recommended nephrostomy tube if obstruction Nephrology consulted may need ultrafiltration again today for volume removal. Due to acute illness holding tamsulosin 0.4 mg by mouth daily for BPH ID: Septic shock- resolved. Abscess and Suppurative thrombophlebitis left upper extremity MSSA bacteremia Klebsiella UTI ESBL positive Acute aspiration pneumonia/HCAP Broad-spectrum antibiotics with oxacillin 2 g IV every 4 hours till March 26 initially. This is been held in light of current change to regimen to fluconazole, ertapenem Blood cultures 2, UA ESBL positive Klebsiella UTI ID on board. f/u cultures form 02/20/17 blood, sputum, urine cultures-all negative to date HEME: Acute blood loss anemia DVT, bilateral posterior tibial vein, IVC filter Septic thrombophlebitis with occlusive thrombus mid cephalic and basilic vein side Received 10 PRBC, 14 FFP, 2 platelets, 1 cryo-02/28 Past 24 hours received 3 units PRBCs Serial hemoglobins every 6 hours Recheck coags Ultrasound 01/23/17 - Bilateral lower extremity with occlusive posterior tibial vein DVTs. Heparin was initially started for DVT but was placed on hold due to LP with suspected traumatic tap. Currently holding full anticoagulation with enoxaparin 100 mg IV twice a day due to anemia as of 02/26 IVC filter was placed 01/25/17. Ultrasound LUE 02/10 occlusive thrombus mid cephalic vein, basilic vein.s. Transfuse 3 units PRBCs 02/27 Transfuse 2 units PRBCs 03/01. ENDO: Diabetes mellitus Hypoglycemia History of prior adrenal insufficiency with shock Gout EGD colonoscopy completed 02/22. gastritis and esophagitis, colon polyps Started Hydrocortisone 100 mg IV q8hr 02/21/17 (Recent high dose steroids use now hypotensive, hypoglycemic), start steroid taper. Accu-Cheks to maintain euglycemia Novulin R every 4 hours MSK: Right distal ulna fracture. Dr. Nathan with orthopedics has evaluated and recommended nonoperative management. Right wrist splint in place. PROPH: Pantoprazole 40 mg IV twice a day for stress ulcer prophylaxis. Has IVC filter. Therapeutic enoxaparin currently on hold ACCESS: right IJ CVL placed 03/03. A left IJ hemodialysis catheter placed 03/01. Overall impression: Remains critically ill and continues to require transfusions. Ventilator dependent and unable to wean. Critical care 47 mins, exclusive of separately billable procedures. Anthony Rivas MD Mar 05, 2017 08:01
[2017-03-05] MEDS: SODIUM CHLORIDE 0.9% FLUSH 10 ML FLUSH IV FLUSH SCH ×3 (09:00→20:11)
[2017-03-05] MEDS: LACTOBACILLUS ACIDOPHILUS TAB PO SCH ×3 (09:21→17:21)
[2017-03-05] MEDS: PROPOFOL 1000 MG/100 ML INJ 100 ML IV PRN (09:22)
[2017-03-05] MEDS: CHLORHEXIDINE 0.12% (ORAL KIT) 15 ML CUP MT SCH ×2 (09:38→20:11)
[2017-03-05] MEDS: PANTOPRAZOLE SODIUM 40 MG VIAL IV PUSH SCH ×2 (11:36→22:25)
[2017-03-05] MEDS: oxyCODONE HCL ORAL CONC 5 MG/0.25 ML SYRINGE PO SCH ×4 (14:21→21:08)
--- NOTE | 2017-03-05 16:19 | HHI.IDPN ---
Subjective Subjective Remarks Patient is a 62-year-old male, admitted to the hospital for evaluation of pain in his right wrist. He gave a history of falling about a week ago and apparently had immediate pain in the right wrist. He did not seek any medical attention initially because reportedly he was very busy. He eventually presented, and he was found to have a distal ulnar fracture on plain films. He also had some redness and swelling. Orthopedics saw the patient, and was being treated conservatively with the splint. During this hospitalization also he started complaining of generalized weakness but more so in his lower extremity than his upper extremity. He had swelling in both lower extremity which revealed evidence of DVT in the posterior tibial veins. Neurology had seen the patient and he underwent lumbar puncture which apparently was traumatic. Patient was therefore not given anticoagulation because of the traumatic LP, and he underwent placement of an IVC filter on January 25. Patient had another lumbar puncture on February 01. He was felt to have transverse myelitis, and he was given high-dose IV Solu-Medrol from January 27 to February 02. There was apparently some improvement in his weakness. The imaging studies done for his weakness showed some spinal stenosis, and neurosurgery was consult that and recommended that there was no surgical intervention to be done. Patient has been stabilizing, but last night apparently deteriorated, and he ended up getting intubated, and had significant hypotension requiring pressors. There was also an ultrasound done of his left upper extremity which showed DVT, and there was evidence of superior 2 thrombophlebitis. Vascular surgery was consult to it and he had IND on his left upper extremity. Patient has had some fevers since yesterday. 2 blood cultures were done yesterday and they're now reported as growing gram-positive cocci in [place] in clusters. He is currently sedated and intubated. He is on Levophed and vasopressin. A central line was placed as well as a femoral a line. He apparently had an IV in his left upper extremity and that was removed yesterday. Patient also has history of chronic kidney disease, and nephrology evaluated the patient. He was just being monitored for his renal insufficiency. Infectious disease consultation has been requested to evaluate the patient. Notes reviewed D/W RN Temps ok BP ok Hgb dropped this weekend to 6.9, received transfuions, went up to 11, lower again at 9 Sedated on the vent R CT removed today Has line RIJ, and line LSC Has CT on R UC with Kleb ESBL BC negative so far Antibiotics Vancomycin Invanz Lines TLC Vascath Past Medical History Reviewed Allergies: Coded Allergies: levofloxacin (Verified Allergy, Severe, 01/22/17) Objective . Vital Signs Date Time Temp Pulse Resp B/P (MAP) Pulse Ox O2 Delivery O2 Flow Rate FiO2 03/05/17 14:54 98 40 03/05/17 14:00 108 03/05/17 12:00 106 03/05/17 12:00 40 03/05/17 12:00 98.4 106 12 141/87 (105) 97 03/05/17 11:45 96 40 03/05/17 11:45 40 03/05/17 10:00 110 03/05/17 08:00 40 03/05/17 08:00 98.2 110 17 152/101 (118) 97 03/05/17 08:00 110 03/05/17 07:42 97 40 03/05/17 07:00 97 Mechanical Ventilator 40 03/05/17 06:00 105 03/05/17 04:00 98.0 104 16 135/86 (102) 95 03/05/17 04:00 101 03/05/17 04:00 40 03/05/17 03:05 96 40 03/05/17 02:00 95 03/05/17 00:00 40 03/05/17 00:00 117 03/05/17 00:00 98.7 116 20 127/84 (98) 95 03/04/17 23:50 95 40 03/04/17 22:00 113 03/04/17 20:51 93 40 03/04/17 20:00 114 03/04/17 20:00 40 03/04/17 20:00 98.5 114 16 145/93 (110) 97 Arterial Line 03/04/17 19:00 97 Mechanical Ventilator 40 03/04/17 18:00 112 03/04/17 16:58 99 40 . Laboratory Tests Test 03/03/17 17:55 03/03/17 23:21 03/04/17 04:30 03/05/17 06:44 Hemoglobin 11.2 GM/DL 10.8 GM/DL 10.1 GM/DL 9.1 GM/DL Hematocrit 33.0 % 31.4 % 30.1 % 27.0 % White Blood Count 13.6 TH/MM3 14.9 TH/MM3 Red Blood Count 3.45 MIL/MM3 3.08 MIL/MM3 Mean Corpuscular Volume 87.3 FL 87.5 FL Mean Corpuscular Hemoglobin 29.3 PG 29.7 PG Mean Corpuscular Hemoglobin Concent 33.5 % 33.9 % Red Cell Distribution Width 15.4 % 15.3 % Platelet Count 87 TH/MM3 112 TH/MM3 Mean Platelet Volume 8.8 FL 9.3 FL Neutrophils (%) (Auto) 90.5 % Lymphocytes (%) (Auto) 2.1 % Monocytes (%) (Auto) 7.3 % Eosinophils (%) (Auto) 0.0 % Basophils (%) (Auto) 0.1 % Neutrophils # (Auto) 12.3 TH/MM3 Lymphocytes # (Auto) 0.3 TH/MM3 Monocytes # (Auto) 1.0 TH/MM3 Eosinophils # (Auto) 0.0 TH/MM3 Basophils # (Auto) 0.0 TH/MM3 CBC Comment AUTO DIFF AUTO DIFF Differential Total Cells Counted 100 100 Neutrophils % (Manual) 95 % 95 % Band Neutrophils % 1 % Monocytes % 4 % 3 % Neutrophils # (Manual) 13.1 TH/MM3 14.2 TH/MM3 Differential Comment FINAL DIFF MANUAL FINAL DIFF MANUAL Platelet Estimate LOW LOW Platelet Morphology Comment NORMAL NORMAL Red Cell Morphology Comment NORMAL Lymphocytes % 2 % Laboratory Tests Test 03/04/17 04:30 03/05/17 06:00 Blood Urea Nitrogen 33 MG/DL 35 MG/DL Creatinine 2.11 MG/DL 1.79 MG/DL Random Glucose 180 MG/DL 190 MG/DL Total Protein 4.9 GM/DL Albumin 2.0 GM/DL Calcium Level 7.7 MG/DL 7.7 MG/DL Phosphorus Level 4.5 MG/DL Magnesium Level 1.8 MG/DL Alkaline Phosphatase 68 U/L Aspartate Amino Transf (AST/SGOT) 11 U/L Alanine Aminotransferase (ALT/SGPT) 14 U/L Total Bilirubin 0.4 MG/DL Sodium Level 147 MEQ/L 148 MEQ/L Potassium Level 3.7 MEQ/L 3.4 MEQ/L Chloride Level 113 MEQ/L 116 MEQ/L Carbon Dioxide Level 21.5 MEQ/L 22.2 MEQ/L Anion Gap 13 MEQ/L 10 MEQ/L Estimat Glomerular Filtration Rate 32 ML/MIN 39 ML/MIN Lactic Acid Level 1.1 mmol/L Total Creatine Kinase 51 U/L Imaging Chest X-Ray 03/02/17 0600 Signed Impressions: Service Date/Time: Thursday, March 02, 2017 01:56 - CONCLUSION: 1. Supine apparatus in good position. Bilateral space disease, left greater than right. Left-sided pleural effusion similar to prior exam. Trace Holloway MD Aortography 02/28/17 0000 Signed Impressions: Service Date/Time: Tuesday, February 28, 2017 08:01 - CONCLUSION: 1. Active hemorrhage from distal right lateral sacral and iliolumbar branches successfully coil and Gelfoam embolized, as above. Juan Bhakta MD Abdomen/Pelvis CT 02/28/17 0000 Signed Impressions: Service Date/Time: Tuesday, February 28, 2017 06:51 - CONCLUSION: 1. The right retroperitoneal hematoma has increased in size, as above. There are 2 serpiginous arterially enhancing structures visualized, one in the right psoas muscle and another extending into the hematoma at the right iliac fossa. These could represent sites of continued active bleeding. 2. Stable moderate size left and small right pleural effusion with associated compressive atelectasis. 3. Stable small volume of free fluid in the abdomen and pelvis. There is also anasarca. The findings concerning the retroperitoneal hematoma were discussed with Dr. Aguiar via telephone at approximately 7: 10 AM on 02/28/2017. Angelo Allen MD Chest CT 02/27/17 0000 Signed Impressions: Service Date/Time: Monday, February 27, 2017 18:12 - CONCLUSION: 1. Bilateral pleural effusions with bibasilar atelectasis, left greater than right. Tom Sanchez MD Abdomen X-Ray 02/26/17 0000 Signed Impressions: Service Date/Time: Sunday, February 26, 2017 14:52 - CONCLUSION: 1. Nonobstructive bowel gas pattern. Juan Bhakta MD Upper Extremity Ultrasound 02/10/17 0000 Signed Impressions: Service Date/Time: Friday, February 10, 2017 18:46 - CONCLUSION: Occlusive thrombus in the cephalic and basilic veins. Benjamin Person MD Lung Scan- Nuclear Medicine 02/10/17 0000 Signed Impressions: Service Date/Time: Friday, February 10, 2017 22:17 - CONCLUSION: Low probability pulmonary embolism. Candido Patton MD Head CT 02/10/17 Signed Impressions: Service Date/Time: Friday, February 10, 2017 23:51 - CONCLUSION: Negative noncontrast CT brain. Candido Patton MD Wrist X-Ray 02/06/17 Signed Impressions: Service Date/Time: Monday, February 06, 2017 12:50 - CONCLUSION: Minimally displaced distal radius and ulnar fractures. Armando Dodd MD Lumbar Puncture Fluoroscopy 02/01/17 Signed Impressions: Service Date/Time: January 09:35 - CONCLUSION: Uncomplicated fluoroscopically guided lumbar puncture. CSF was clear. Nabeel Peralta MD Head Magnetic Resonance Angiography 01/27/17 Signed Impressions: Service Date/Time: Friday, January 27, 2017 10:33 - CONCLUSION: No intracranial vascular abnormality is identified. There is no aneurysm visualized. Angelo Allen MD IVC Filter Placement X-Ray 01/25/17 Signed Impressions: Service Date/Time: January 10:29 - CONCLUSION: Uncomplicated inferior vena cava filter placement as above. Yung Fowler MD Thoracic Spine MRI 01/24/17 Signed Impressions: Service Date/Time: Tuesday, January 24, 2017 22:29 - CONCLUSION: 1. Mild degenerative spondylosis most prominently at T11-L1 with slight effacement of the anterior thecal sac and left lateral recess. No significant neural foraminal stenosis. 2. No acute fracture. Juan Bhakta MD Renal Ultrasound 01/23/17 Signed Impressions: Service Date/Time: Monday, January 23, 2017 08:53 - CONCLUSION: 1. Evidence of chronic parenchymal disease of both kidneys. No obstructive uropathy or other acute abnormality demonstrated. 2. Trace ascites, nonspecific. Angelo Garrido MD Lumbar Spine MRI 01/23/17 Signed Impressions: Service Date/Time: Monday, January 23, 2017 17:01 - CONCLUSION: 1. At L4-5 is a broad-based disc protrusion with severe central canal and lateral recess stenosis and flattening of the exiting right L4 nerve root. 2. L5-S1 there is a disc protrusion and moderate stenosis with flattening of the exiting L5 nerve roots bilaterally. 3. At L3-4 there is a moderate to severe central stenosis and lateral recess stenosis with mild foraminal stenosis. 4. No acute fracture or spondylolisthesis. Trace Holloway MD Lower Extremity Ultrasound 01/23/17 Signed Impressions: Service Date/Time: Monday, January 23, 2017 09:53 - CONCLUSION: Bilateral focal lower extremity DVT involving the posterior tibial veins. Angelo Garrido MD Cervical Spine MRI 01/23/17 Signed Impressions: Service Date/Time: Monday, January 23, 2017 17:01 - CONCLUSION: 1. Multilevel cervical spine degenerative changes as above. 2. Mild degrees of spinal stenosis at C3/C4-C6/C7. No cord compression or cord signal abnormality. 3. Age indeterminate left paracentral/foraminal disc protrusion at C6/C7. 4. Multilevel foraminal stenosis, most severe on the left at C6/C7. Please see individual levels above. 5. No fracture or subluxation of the cervical spine. Angelo Garrido MD Brain MRI 01/23/17 0000 Signed Impressions: Service Date/Time: Monday, January 23, 2017 17:01 - CONCLUSION: 1. No acute stroke or other acute intracranial abnormality demonstrated. 2. Moderate severity chronic white matter changes, nonspecific but most likely related to chronic small vessel disease. 3. Few scattered tiny lacunar infarcts of the brainstem. 4. Given the findings are not entirely specific, clinical evaluation for possible multiple sclerosis recommended. Angelo Garrido MD Knee X-Ray [id number]/[id number] Signed Impressions: Service Date/Time: Sunday, January 22, 2017 21:17 - CONCLUSION: 1. Evidence of moderate to large joint effusion. 2. No acute fracture or malalignment. 3. Mild 3 compartment osteoarthritic change. Benjamin Person MD Hip and Pelvis X-Ray [id number]/22/[id number] Signed Impressions: Service Date/Time: Sunday, January 22, 2017 21:10 - CONCLUSION: 1. Mild to moderate degenerative change of both hips with no acute fracture or malalignment. There is flattening and remodeling of the right humeral head. Benjamin Person MD Chest X-Ray 02/24/[id number] Signed Impressions: Service Date/Time: Friday, February 24, 2017 03:58 - CONCLUSION: 1. Unchanged left lower lobe infiltrate with small effusion. Candido Mendoza Jr., MD Chest X-Ray 02/20/17 Signed Impressions: Service Date/Time: Monday, February 20, 2017 11:36 - CONCLUSION: 1. Stable very small right and small left pleural effusions with left lower lobe airspace consolidation. 2. No significant interval change. Juan Bhakta MD Abdomen/Pelvis CT 02/19/17 Signed Impressions: Service Date/Time: Sunday, February 19, 2017 19:09 - CONCLUSION: 1. Areas of calcification seen in the right renal collecting system, right renal pelvis, and proximal right ureter. These appear to layer and be dependent suggesting likely to represent smaller areas of milk of calcium or small stones. There is mild dilatation of the right renal collecting system and right ureter. A definite obstructing stone at this time is not seen. 2. A small amount of air within the urinary bladder. This should be correlated with any recent catheterization. 3. Mild bilateral pleural effusions with accompanying atelectasis or consolidation at the left base. The consolidation was present previously. 4. Prominent degenerative change in the lumbar spine and at the hip joints bilaterally. Angelo Manzo MD Chest X-Ray 02/12/17599 Signed Impressions: Service Date/Time: Sunday, February 12, 2017 03:32 - CONCLUSION: 1. Support apparatus in good position. Relatively stable basilar airspace disease and pleural effusions. Trace Holloway MD Upper Extremity Ultrasound 02/10/17 Signed Impressions: Service Date/Time: Friday, February 10, 2017 18:46 - CONCLUSION: Occlusive thrombus in the cephalic and basilic veins. Benjamin Person MD Lung Scan- Nuclear Medicine 02/10/17 Signed Impressions: Service Date/Time: Friday, February 10, 2017 22:17 - CONCLUSION: Low probability pulmonary embolism. Candido Patton MD Head CT 02/10/17 Signed Impressions: Service Date/Time: Friday, February 10, 2017 23:51 - CONCLUSION: Negative noncontrast CT brain. Candido Patton MD Chest CT 02/10/17 Signed Impressions: Service Date/Time: Friday, February 10, 2017 23:56 - CONCLUSION: Left lower lobe collapse with consolidation. Patchy infiltrates the medial right lower lung. Candido Patton MD Abdomen/Pelvis CT 02/10/17 0000 Signed Impressions: Service Date/Time: Friday, February 10, 2017 23:59 - CONCLUSION: 1. Nonobstructing 12 mm calcified stone lower pole right kidney. 2. Atrophic left kidney with significant cortical thinning. 3. Bilateral fat-containing inguinal hernias, large on the right, and moderate on the left. 4. Consolidative collapse of the left lower lobe. Candido Patton MD Abdomen X-Ray 02/10/17 0000 Signed Impressions: Service Date/Time: Friday, February 10, 2017 08:14 - CONCLUSION: No acute abdominal abnormality is identified. Angelo Allen MD Wrist X-Ray 02/06/17 0000 Signed Impressions: Service Date/Time: Monday, February 06, 2017 12:50 - CONCLUSION: Minimally displaced distal radius and ulnar fractures. Armando Dodd MD Lumbar Puncture Fluoroscopy 02/01/17 0000 Signed Impressions: Service Date/Time: January 09:35 - CONCLUSION: Uncomplicated fluoroscopically guided lumbar puncture. CSF was clear. Nabeel Peralta MD Head Magnetic Resonance Angiography 01/27/17 0000 Signed Impressions: Service Date/Time: Friday, January 27, 2017 10:33 - CONCLUSION: No intracranial vascular abnormality is identified. There is no aneurysm visualized. Angelo Allen MD IVC Filter Placement X-Ray 01/25/17 Signed Impressions: Service Date/Time: January 10:29 - CONCLUSION: Uncomplicated inferior vena cava filter placement as above. Yung Fowler MD Thoracic Spine MRI 01/24/17 0000 Signed Impressions: Service Date/Time: Tuesday, January 24, 2017 22:29 - CONCLUSION: 1. Mild degenerative spondylosis most prominently at T11-L1 with slight effacement of the anterior thecal sac and left lateral recess. No significant neural foraminal stenosis. 2. No acute fracture. Juan Bhakta MD Renal Ultrasound 01/23/17 Signed Impressions: Service Date/Time: Monday, January 23, 2017 08:53 - CONCLUSION: 1. Evidence of chronic parenchymal disease of both kidneys. No obstructive uropathy or other acute abnormality demonstrated. 2. Trace ascites, nonspecific. Angelo Garrido MD Lumbar Spine MRI 01/23/17 Signed Impressions: Service Date/Time: Monday, January 23, 2017 17:01 - CONCLUSION: 1. At L4-5 is a broad-based disc protrusion with severe central canal and lateral recess stenosis and flattening of the exiting right L4 nerve root. 2. L5-S1 there is a disc protrusion and moderate stenosis with flattening of the exiting L5 nerve roots bilaterally. 3. At L3-4 there is a moderate to severe central stenosis and lateral recess stenosis with mild foraminal stenosis. 4. No acute fracture or spondylolisthesis. Trace Holloway MD Lower Extremity Ultrasound 01/23/17 Signed Impressions: Service Date/Time: Monday, January 23, 2017 09:53 - CONCLUSION: Bilateral focal lower extremity DVT involving the posterior tibial veins. Angelo Garrido MD Cervical Spine MRI 01/23/17 Signed Impressions: Service Date/Time: Monday, January 23, 2017 17:01 - CONCLUSION: 1. Multilevel cervical spine degenerative changes as above. 2. Mild degrees of spinal stenosis at C3/C4-C6/C7. No cord compression or cord signal abnormality. 3. Age indeterminate left paracentral/foraminal disc protrusion at C6/C7. 4. Multilevel foraminal stenosis, most severe on the left at C6/C7. Please see individual levels above. 5. No fracture or subluxation of the cervical spine. Angelo Garrido MD Brain MRI 01/23/17 Signed Impressions: Service Date/Time: Monday, January 23, 2017 17:01 - CONCLUSION: 1. No acute stroke or other acute intracranial abnormality demonstrated. 2. Moderate severity chronic white matter changes, nonspecific but most likely related to chronic small vessel disease. 3. Few scattered tiny lacunar infarcts of the brainstem. 4. Given the findings are not entirely specific, clinical evaluation for possible multiple sclerosis recommended. Angelo Garrido MD Knee X-Ray 01/22/172053 Signed Impressions: Service Date/Time: Sunday, January 22, 2017 21:17 - CONCLUSION: 1. Evidence of moderate to large joint effusion. 2. No acute fracture or malalignment. 3. Mild 3 compartment osteoarthritic change. Benjamin Person MD Hip and Pelvis X-Ray 01/22/172053 Signed Impressions: Service Date/Time: Sunday, January 22, 2017 21:10 - CONCLUSION: 1. Mild to moderate degenerative change of both hips with no acute fracture or malalignment. There is flattening and remodeling of the right humeral head. Benjamin Person MD Physical Exam GENERAL:Sedated. On vent, NAD, looks edematous. Getting HD SKIN: Cool and dry. No generalized rash. EYES: Larned conjunctiva. No petechia or hemorrhage. EARS, NOSE AND THROAT: Nose without bleeding or purulent nasal discharge. ET in mouth NECK: Trachea midline. Supple and no meningeal signs CARDIOVASCULAR: Regular rate and rhythm. Soft heart sounds. No murmurs, rubs or gallops heard RESPIRATORY: Coarse BS bilaterally, decreased at bases. R CT with serosanguineous fluid ABDOMEN: Soft, mildly distended, some grimacing during palpation. EXTREMITIES: No clubbing, cyanosis. More edematous. : very swollen scrotum LUE - wound vac in place NEUROLOGICAL: Sedated PSYCHIATRIC: Unable to assess LINE: Lines with no evidence of infection Assessment & Plan Remarks IMPRESSION New shock, due to large R retroperitoneal bleed, S/P multiple transfusions and S/P coiling of bleeders Elevated amylase and lipase, ?due to shock Anemia, due to bleed, retroperitoneal MSSA sepsis, due to suppurative thrombophlebitis LUE, S/P I and D and excision of portion of cephalic vein - needs Rx until Mar 25 Respiratory failure, has had several intubations - reintubated again 02/28 Recent Rx 7 days high dose solumedrol for transverse myelitis Wu LE DVT has IVC filter placed 01/25 - ?hypercoagulable state Chronic kidney disease, worsening creatinine - shock and compression of ureter by hematoma Known DM, HTN Gouty tophi both hands and feet Diarrhea, C diff negative UTI, GNR Thrombocytopenia, no evidence of DIC, ?meds, ?infection, ?due to bleed RECOMMENDATION Give dose of Vanco today, check level tomorrow Continue Invanz Monitor H/H Follow platelet count Monitor temps Monitor progress D/W Irene Vogel MD Mar 05, 2017 16:19
--- NOTE | 2017-03-05 16:43 | HHI.PR ---
Subjective Subjective Notes Seen this AM ROHINI Santacruz at bedside---- getting bladder pressure---measured at 12 Objective Vitals/I&O Vital Signs Date Time Temp Pulse Resp B/P (MAP) Pulse Ox O2 Delivery O2 Flow Rate FiO2 03/05/17 16:00 100 03/05/17 14:54 98 40 03/05/17 12:00 98.4 12 141/87 (105) 03/05/17 07:00 Mechanical Ventilator Labs Laboratory Tests Test 03/05/17 06:00 03/05/17 06:44 Blood Urea Nitrogen 35 Creatinine 1.79 Random Glucose 190 Calcium Level 7.7 Sodium Level 148 Potassium Level 3.4 Chloride Level 116 Carbon Dioxide Level 22.2 Anion Gap 10 Estimat Glomerular Filtration Rate 39 White Blood Count 14.9 Red Blood Count 3.08 Hemoglobin 9.1 Hematocrit 27.0 Mean Corpuscular Volume 87.5 Mean Corpuscular Hemoglobin 29.7 Mean Corpuscular Hemoglobin Concent 33.9 Red Cell Distribution Width 15.3 Platelet Count 112 Mean Platelet Volume 9.3 CBC Comment AUTO DIFF Differential Total Cells Counted 100 Neutrophils % (Manual) 95 Lymphocytes % 2 Monocytes % 3 Neutrophils # (Manual) 14.2 Differential Comment FINAL DIFF MANUAL Platelet Estimate LOW Platelet Morphology Comment NORMAL Date/Time Source Procedure Growth Status 02/27/17 03:48 Blood Peripheral Aerobic Blood Culture - Final NO GROWTH IN 5 DAYS Complete 02/27/17 03:48 Blood Peripheral Anaerobic Blood Culture - Final NO GROWTH IN 5 DAYS Complete 02/01/17 09:55 Cerebral Spinal Fluid Lumbar Puncture Fungal Smear - Final NO FUNGAL ELEMENTS SEEN. Complete 02/01/17 09:55 Cerebral Spinal Fluid Lumbar Puncture Fungal Culture - Final NO GROWTH IN 4 WEEKS Complete 02/17/17 05:55 Stool Stool Stool Occult Blood (GREGORY) - Final HEMOCCULT POSITIVE Complete 02/20/17 12:55 Sputum Endotracheal Gram Stain - Final Complete 02/20/17 12:55 Sputum Endotracheal Sputum Culture - Final HEAVY GROWTH NORMAL RESPIRATORY EARL Complete 02/27/17 08:32 Urine Catheterized Urine Urine Culture - Final Klebsiella Pneumoniae Esbl Pos Complete 02/11/17 09:10 Abscess Arm Acid Fast Stain - Final NO ACID FAST BACILLI SEEN Resulted 02/11/17 09:10 Abscess Arm Mycobacterial Culture - Preliminary NO GROWTH IN 3 WEEKS Resulted Cardiovascular: Regular Lungs: Clear Abdomen: Other (obese abdomen; distended but soft ) Extremities: Other (moderate generalized edema ) A/P Assessment and Plan 62 year old male with recent diagnosis of transverse myelitis; retroperitoneal hematoma s/p IR embolization -Bladder pressures stable---12 this morning -Continue to closely monitor [facility] -Nephrology following -Discussed with ROHINI Santacruz -No acute GS needs at this time; Please call if needed I CERTIFY AND ATTEST THAT I EXAMINED THE PATIENT IN THEIR ROOM. MS SOTELO DOCUMENTED OUR VISIT AND ENTERED ORDERS IN THE EMR UNDER MY DIRECT SUPERVISION. NO SIGN OF COMPT SYNDROME AT THIS TIME. WILL SIGN OFF. PLEASE CALL IF THERE ARE ANY QUESTIONS OR CONCERNS. OLLIE DICKEY MD [facility] Adriana Sotelo [facility] Mar 05, 2017 16:43 Ollie Dickey MD Mar 10, 2017 16:58
[2017-03-05] MEDS ORDERED: VANCOMYCIN INJ 1,000 MG in SODIUM CHLOR 0.9% 250 ML INJ 250 ML IV ONE (17:00)
[2017-03-05] MEDS: ERTAPENEM INJ 1,000 MG in SODIUM CHLORIDE 0.9% INJ 100 ML IV SCH (20:11)
[2017-03-05] MEDS: ATORVASTATIN 10 MG TAB PO SCH (20:13)
[2017-03-05] MEDS: INSULIN DETEMIR 100 UNITS/ML VIAL SQ SCH (20:29)
--- NOTE | 2017-03-05 21:58 | HHI.NPPN ---
Subjective History of Present Illness 61-year-old with history of urinary stone Additional Remarks Patient remain intubated and sedated. Review of Systems General Constitutional: Fatigue Objective Data Data 03/05/17 03/06/17 18:59 06:59 Intake Total 964.0 ml Output Total 425 ml Balance 539.0 ml IV Total 352.0 ml Tube Feeding 212 ml Other 400 ml Output Urine Total 425 ml Drainage Total 0 ml # Bowel Movements 2 Vital Signs Date Time Temp Pulse Resp B/P (MAP) Pulse Ox O2 Delivery O2 Flow Rate FiO2 03/05/17 20:00 40 03/05/17 20:00 110 03/05/17 19:00 99 Mechanical Ventilator 40 03/05/17 18:00 110 03/05/17 16:00 98.4 100 16 146/89 (108) 97 03/05/17 16:00 100 03/05/17 16:00 40 03/05/17 14:54 98 40 03/05/17 14:00 108 03/05/17 12:00 106 03/05/17 12:00 40 03/05/17 12:00 98.4 106 12 141/87 (105) 97 03/05/17 11:45 96 40 03/05/17 11:45 40 03/05/17 10:00 110 03/05/17 08:00 40 03/05/17 08:00 98.2 110 17 152/101 (118) 97 03/05/17 08:00 110 03/05/17 07:42 97 40 03/05/17 07:00 97 Mechanical Ventilator 40 03/05/17 06:00 105 03/05/17 04:00 98.0 104 16 135/86 (102) 95 03/05/17 04:00 101 03/05/17 04:00 40 03/05/17 03:05 96 40 03/05/17 02:00 95 03/05/17 00:00 40 03/05/17 00:00 117 03/05/17 00:00 98.7 116 20 127/84 (98) 95 03/04/17 23:50 95 40 03/04/17 22:00 113 -: 03/05/17 0644 03/05/17 0600 Physical Exam General Appearance: Pale Eyes Eye Exam: Pupils Equal Throat Throat Exam: Oral Mucosa [place] & Moist Neck Neck Exam: Neck Supple Pulmonary Resp Exam: Crackles, Rhonchi, Decreased Bases, Diminished Breath Sounds Cardiology CV Exam: Normal Sinus Rhythm, Tachycardia Gastrointestinal/Abdomen GI Exam: Non-Tender, Distended Extremeties Extremities Exam: Moderate Edema Assessment/Plan Problem List: (1) Acute renal failure ICD Codes: N17.9 - Acute kidney failure, unspecified Status: Acute Plan: Patient developed Hypotension,sepsis staph aureus respiratory failure and increase WBC. Had aspiration pneumonia, developed sepsis with ARF again creatinine declined slightly post hydration he also had retroperitoneal bleed Elevated intra abdominal pressures - improved now. 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 Has edema, need to be in negative fluid balance. HD was on hold today. Will start Bumex infusion. Follow the urine out put and BMP. HD/UF as needed. Dr. Liao will follow from AM. (2) CKD (chronic kidney disease) stage 3, GFR 30-59 ml/min ICD Codes: N18.3 - Chronic kidney disease, stage 3 (moderate) Status: Chronic Plan: Ultrasound revealed chronic kidney disease there is no kidney stones (3) Diabetes ICD Codes: E11.9 - Type 2 diabetes mellitus without complications Plan: Continue to monitor (4) Distal end of ulna fracture, closed ICD Codes: S52.609A - Unspecified fracture of lower end of unspecified ulna, initial encounter for closed fracture Status: Acute Plan: Orthopedic is following Problem Qualifiers (1) Acute renal failure: Qualified Codes: N17.9 - Acute kidney failure, unspecified Aicha Leonard MD Mar 05, 2017 21:58
[2017-03-05] MEDS ORDERED: BUMETANIDE INJ 100 ML IV SCH (23:00)
[2017-03-06] VITALS (20 sets, daily range): BP systolic 108–171; BP diastolic 69–103; PULSE 89–118; RESP 16–17; TEMP 97.4–98.7; O2SAT 96–98
[2017-03-06] MEDS: INSULIN NovoLIN REGULAR SUPPLEMENTAL SCALE SQ SCH ×7 (00:33→23:57)
[2017-03-06] MEDS: oxyCODONE HCL ORAL CONC 5 MG/0.25 ML SYRINGE PO SCH ×6 (02:00→21:27)
[2017-03-06] MEDS: RESP: ALBUTEROL 2.5 MG/IPRATROPIUM 0.5 MG NEB (SCH) NEB ×4 (03:14→20:40)
[2017-03-06] MEDS: ARTIFICIAL TEARS OPTH SOLN 15 ML BTL EACH EYE SCH ×3 (05:48→22:00)
[2017-03-06] MEDS: HYDROCORTISONE SOD SUCCINATE 100 MG VIAL IV SCH ×2 (05:48→14:24)
[2017-03-06] MEDS: FREE WATER G-TUBE SCH ×4 (05:48→20:00)
[2017-03-06] MEDS: METOCLOPRAMIDE HCL 10 MG/2 ML VIAL IV PUSH SCH ×3 (05:49→21:28)
[2017-03-06] MEDS: PROPOFOL 1000 MG/100 ML INJ 100 ML IV PRN ×4 (05:50→23:53)
[2017-03-06 06:03] LABS: HEMATOCRIT 27.1 % (39.0-51.0); MEAN CELL VOLUME 88.5 FL (80.0-100.0); PLATELET COUNT 118 TH/MM3 (150-450); RED BLOOD COUNT 3.07 MIL/MM3 (4.50-5.90); RED CELL DISTRIBUTION WIDTH 15.3 % (11.6-17.2); REVIEW FLAG FINAL
[2017-03-06 06:25] LABS: POTASSIUM 3.5 MEQ/L (3.5-5.1)
[2017-03-06] MEDS: fentaNYL DRIP 250 ML IV PRN ×2 (07:50→18:25)
[2017-03-06] MEDS: CHLORHEXIDINE 0.12% (ORAL KIT) 15 ML CUP MT SCH ×2 (08:00→21:27)
--- NOTE | 2017-03-06 08:20 | HHI.CCPN ---
Subjective Remarks/Hospital Course Date of admission: 01/22 Date of critical care medicine consult 02/10 due to acute hypoxemic respiratory failure requiring emergent intubation 62-year-old male with a past medical history of hypertension, hyperlipidemia, diabetes mellitus, gout, uric acid kidney stones, kidney disease of unknown stage who originally presented to [facility] emergency department on 01/22 after a fall in which he sustained a right distal ulna fracture. He had been experiencing a gradual primarily lower extremity weakness as well as upper extremity weakness that was progressive. Neurology consult was obtained. MRI revealed no acute stroke. He had multifocal white matter changes. Tiny lacunar infarcts of the brainstem. Lumbar MRI report states L4-L5 disc protrusion with cetnral canal stenosis. Dr. Blackwell evaluated and states no cord compression on MRI C/T spine and recommended nonoperative management. Symptoms were felt to be consistent with transverse myelitis and he underwent Solumedrol 250 mg IV q6 hours 01/27-02/02. He also was found to have occlusive thrombus in the bilateral posterior tibial veins. Heparin was being avoided because he had traumatic lumbar puncture on 01/26 and 02/01. IVC filter was placed 01/25. He was undergoing physical therapy, reportedly making some improvements with plan to eventually discharged home with his son (max assist standing, and bed to chair per PT note). Apparently he had some vomiting the evening of 02/09 and additional vomiting on 02/10. He had a fever 102.8 on 02/09. Last recorded bowel movement was 02/03. Tonight he had acute onset of severe hypoxemia and respiratory distress. [facility] called and he was brought emergently to [facility] where his sats were 64% on 100% nonrebreather with mean arterial pressure 44. He was emergently intubated, CVL and art line placed. He is in septic shock. SUBJ: 02/11: Patient remains intubated sedated, critically ill. FiO2 reduced to 80% after increasing PEEP to 12. In severe septic shock Levophed at 16 mcg/m, vasopressin at 0.04 international units. D/W vascular surgery Dr. Enciso. He performed bedside Left upper extremity incision and debridement and excision of septic cephalic vein. 02/12: Remains intubated sedated profoundly septic, in shock on vasopressin and 7 mcg/min Levophed. FiO2 has improved to 45%, WBC count remains elevated with 20 ,000 white count significant left shift. Slight improvement in creatinine 2.9 urine output 750 ml 24 hours. 2-D echo shows LV ejection fraction 20-25%, no vegetation reported. Blood cultures 4 staph aureus. Wound culture pending 02/13: Remains critically ill but stable to improving. WBC count is down to 16, creatinine improving to 2.36. Off all pressors. Urine output also improving. 1.5L in 24 hours 02/14: Extubated 02/13. Tolerating well. WBC now down to 12.8. Creat improving 2.3 to 2. UO 3.4L. remains off all pressors. Was started on Precedex yesterday night for agitation, currently on 0.5 g per KG per hour. Chest x-ray shows left more than right air space disease 02/20/17 Re consult: 62-year-old male who was originally admitted for lower extremity weakness and found to have what was thought to be possible transverse myelitis. His hospital course his included a healthcare associated pneumonia, septic thrombophlebitis, DVT. He was most recently in the hospital floor where he had significant nausea and vomiting and diarrhea. His C. difficile test was recently negative. However, he has experienced worsening acute on chronic renal failure, hypotension, tachycardia, and severe hypoxemia. He did have a bout of vomiting earlier today, and his hospitalist attending suspects that he may have aspirated. He arrives by rapid response to the ICU with a nonrebreather in place in severe respiratory distress with SPO2 of 85%. I emergently intubate the patient, see separate procedure note for details. At this point the patient was hypotensive and tachycardic. He does have a history of an EF of 20%, however clinically he appears in florid septic shock. I placed central line and arterial line started vasopressors and gentle IV fluid resuscitation with 1 L of LR. Patient today was empirically broadened to vancomycin and Zosyn from his oxacillin which was initially treating MSSA bacteremia. He is recultured. Critical-care medicine is consulted to evaluate and manage his worsening multiorgan system failure and decompensated septic shock 02/21: Patient remains intubated sedated. Becomes anxious tachypnea on sedation lightening. Chest x-ray shows mild left lower lobe infiltrate. WBC count is slightly improved today from 23.2 t0 21. C Diff negative. UO adequate, creat slightly worsening. 1.57 today 02/22: Remains intubated sedated tolerated CPAP yesterday, plan is for EGD/ Colonscopy. WBC count back to normal. UO adequate. Creat stable 02/23: Tolerating CPAP trials following commands. Will do a spontaneous breathing trials. Status post EGD colonoscopy yesterday -Gastritis, esophagitis. Diverticulosis and multiple polyps. Urine output adequate but creatinine increasing to 1.7 with patient requiring multiple straight catheterization. We'll reinsert Sloan. 02/24: Breathing comfortably 24 hours after extubation. Protects airway well. 02/25: Excoriate bottom, will place rectal FMS. Start pureed diet. 02/26: Afebrile. Complaining of nausea and vomiting this afternoon. Increased stool output. Continue potassium replacement today. 02/27: 10 PM overnight, acutely hypotensive. Received 3 units PRBCs. Antibiotic coverage broadened to piperacillin/tazobactam, cortisol and 1 dose of vancomycin. Oxacillin drip currently on hold. Symptomatically, patient continues to vague abdominal pain/nausea vomiting which is unchanged for the past several days. Lipase elevated yesterday. Lactic acid normal. Troponin normal. Urinary retention after removal of Sloan. Straight catheter 1300. Cc 02/28: New diagnosis large retroperitoneal hematoma. Received 10 PRBC, 14 FFP, 2 platelets, 1 cryo-, 6 g calcium chloride, 2 is magnesium sulfate and 4 mg Bumex. CTA abdomen revealed possible arterial bleeds iliac, lumbar. Patient is currently on norepinephrine and epinephrine drips and possible need right nephrostomy tube placement due to large hematoma compressing ureter. Intra-abdominal bladder pressures are currently 13 03/01: Afebrile. Received 25 g albumin and 1 unit PRBCs overnight. Intra- abdominal bladder pressures currently 19. Currently on 3 micrograms per minute of norepinephrine. [id number] 1 out of 4 on 4 mics grams per kilogram per minute of cisatracurium. 03/02: Slightly hypothermic overnight. Hemoglobin appears to have stabilized. Troponin bump overnight likely secondary to demand ischemia from hypotension. Hemodynamically stable off all vasopressors. 03/03: Received 1 PRBCs overnight. 3 units currently. Off all vasopressors. Likely rebleeding. Stool is dark. 03/04: Remains unstable. Ventilator dependent. 03/05: afebrile. hgb stable. Subjective 03/06: bumex drip started overnight. good uop after bumex initiated. still grossly volume overloaded. Cr downtrending. more awake with transition to propofol. still too volume overloaded to tolerate extubation. hgb stable. Objective Vital Signs Date Time Temp Pulse Resp B/P (MAP) Pulse Ox O2 Delivery O2 Flow Rate FiO2 03/06/17 06:00 96 03/06/17 04:00 40 03/06/17 04:00 98.5 16 137/84 (101) 97 03/05/17 19:00 Mechanical Ventilator Intake and Output 03/06/17 03/06/17 03/06/17 07:59 15:59 23:59 Intake Total 695.9 ml Output Total 1175 ml Balance -479.1 ml Result Diagram: 03/06/17 0544 03/06/17 0544 Imaging Last Impressions Chest X-Ray 03/03/17 0600 Signed Impressions: Service Date/Time: Friday, March 03, 2017 04:24 - CONCLUSION: 1. Tubes and lines in good position. 2. Left base consolidation, atelectasis. Some degree of left effusion should be considered. Angelo Manzo MD Aortography 02/28/17 0000 Signed Impressions: Service Date/Time: Tuesday, February 28, 2017 08:01 - CONCLUSION: 1. Active hemorrhage from distal right lateral sacral and iliolumbar branches successfully coil and Gelfoam embolized, as above. Juan Bhakta MD Abdomen/Pelvis CT 02/28/17 0000 Signed Impressions: Service Date/Time: Tuesday, February 28, 2017 06:51 - CONCLUSION: 1. The right retroperitoneal hematoma has increased in size, as above. There are 2 serpiginous arterially enhancing structures visualized, one in the right psoas muscle and another extending into the hematoma at the right iliac fossa. These could represent sites of continued active bleeding. 2. Stable moderate size left and small right pleural effusion with associated compressive atelectasis. 3. Stable small volume of free fluid in the abdomen and pelvis. There is also anasarca. The findings concerning the retroperitoneal hematoma were discussed with Dr. Aguiar via telephone at approximately 7: 10 AM on 02/28/2017. Angelo Allen MD Chest CT 10/10/17 0000 Signed Impressions: Service Date/Time: Monday, February 27, 2017 18:12 - CONCLUSION: 1. Bilateral pleural effusions with bibasilar atelectasis, left greater than right. Tom Sanchez MD Abdomen X-Ray 02/26/17 Signed Impressions: Service Date/Time: Sunday, February 26, 2017 14:52 - CONCLUSION: 1. Nonobstructive bowel gas pattern. Juan Bhakta MD Upper Extremity Ultrasound 02/10/17 Signed Impressions: Service Date/Time: Friday, February 10, 2017 18:46 - CONCLUSION: Occlusive thrombus in the cephalic and basilic veins. Benjamin Person MD Lung Scan- Nuclear Medicine 02/10/17 Signed Impressions: Service Date/Time: Friday, February 10, 2017 22:17 - CONCLUSION: Low probability pulmonary embolism. Candido Patton MD Head CT 02/10/17 Signed Impressions: Service Date/Time: Friday, February 10, 2017 23:51 - CONCLUSION: Negative noncontrast CT brain. Candido Patton MD Wrist X-Ray 02/06/17 Signed Impressions: Service Date/Time: Monday, February 06, 2017 12:50 - CONCLUSION: Minimally displaced distal radius and ulnar fractures. Armando Dodd MD Lumbar Puncture Fluoroscopy 02/01/17 0000 Signed Impressions: Service Date/Time: January 09:35 - CONCLUSION: Uncomplicated fluoroscopically guided lumbar puncture. CSF was clear. Nabeel Peralta MD Head Magnetic Resonance Angiography 01/27/17 Signed Impressions: Service Date/Time: Friday, January 27, 2017 10:33 - CONCLUSION: No intracranial vascular abnormality is identified. There is no aneurysm visualized. Angelo Allen MD IVC Filter Placement X-Ray 01/25/17 Signed Impressions: Service Date/Time: January 10:29 - CONCLUSION: Uncomplicated inferior vena cava filter placement as above. Yung Fowler MD Thoracic Spine MRI 01/24/17 Signed Impressions: Service Date/Time: Tuesday, January 24, 2017 22:29 - CONCLUSION: 1. Mild degenerative spondylosis most prominently at T11-L1 with slight effacement of the anterior thecal sac and left lateral recess. No significant neural foraminal stenosis. 2. No acute fracture. Juan Bhakta MD Renal Ultrasound 01/23/17 Signed Impressions: Service Date/Time: Monday, January 23, 2017 08:53 - CONCLUSION: 1. Evidence of chronic parenchymal disease of both kidneys. No obstructive uropathy or other acute abnormality demonstrated. 2. Trace ascites, nonspecific. Angelo Garrido MD Lumbar Spine MRI 01/23/17 Signed Impressions: Service Date/Time: Monday, January 23, 2017 17:01 - CONCLUSION: 1. At L4-5 is a broad-based disc protrusion with severe central canal and lateral recess stenosis and flattening of the exiting right L4 nerve root. 2. L5-S1 there is a disc protrusion and moderate stenosis with flattening of the exiting L5 nerve roots bilaterally. 3. At L3-4 there is a moderate to severe central stenosis and lateral recess stenosis with mild foraminal stenosis. 4. No acute fracture or spondylolisthesis. Trace Holloway MD Lower Extremity Ultrasound 01/23/17 Signed Impressions: Service Date/Time: Monday, January 23, 2017 09:53 - CONCLUSION: Bilateral focal lower extremity DVT involving the posterior tibial veins. Angelo Garrido MD Cervical Spine MRI 01/23/17 Signed Impressions: Service Date/Time: Monday, January 23, 2017 17:01 - CONCLUSION: 1. Multilevel cervical spine degenerative changes as above. 2. Mild degrees of spinal stenosis at C3/C4-C6/C7. No cord compression or cord signal abnormality. 3. Age indeterminate left paracentral/foraminal disc protrusion at C6/C7. 4. Multilevel foraminal stenosis, most severe on the left at C6/C7. Please see individual levels above. 5. No fracture or subluxation of the cervical spine. Angelo Garrido MD Brain MRI 01/23/17 Signed Impressions: Service Date/Time: Monday, January 23, 2017 17:01 - CONCLUSION: 1. No acute stroke or other acute intracranial abnormality demonstrated. 2. Moderate severity chronic white matter changes, nonspecific but most likely related to chronic small vessel disease. 3. Few scattered tiny lacunar infarcts of the brainstem. 4. Given the findings are not entirely specific, clinical evaluation for possible multiple sclerosis recommended. Angelo Garrido MD Knee X-Ray 01/22/172053 Signed Impressions: Service Date/Time: Sunday, January 22, 2017 21:17 - CONCLUSION: 1. Evidence of moderate to large joint effusion. 2. No acute fracture or malalignment. 3. Mild 3 compartment osteoarthritic change. Benjamin Person MD Hip and Pelvis X-Ray 01/22/172053 Signed Impressions: Service Date/Time: Sunday, January 22, 2017 21:10 - CONCLUSION: 1. Mild to moderate degenerative change of both hips with no acute fracture or malalignment. There is flattening and remodeling of the right humeral head. Benjamin Person MD Objective Remarks GENERAL: 62-year-old male, critically ill currently orotracheally intubated HEENT: Normocephalic. Atraumatic. Pupils equal, round, reactive, conjugate by 3 mm bilaterally. NECK: Trachea is midline. Obese. No JVD or thyromegaly right IJ TLC, left IJ hemodialysis catheter clean dry and intact CHEST: Diminished breath sounds. equal chest rise. CARDIOVASCULAR: RRR. ABDOMEN: Distended. Firm to palpation. Umbilical hernia is reducible. MUSCULOSKELETAL: Pulses 2+. 1+ bilateral upper and lower extremity edema. Wound VAC on left upper extremity NEUROLOGICAL: Currently sedated and ventilated. RASS -2, fc weakly. Procedures IVC filter placement 01/25/2017 LP 01/26/2017 Line: Central Venous Catheter Side: Left Location: Subclavian A/P Assessment and Plan Assessment: 62yM with dilated cardiomyopathy, EF 20%, transverse myelitis, course complicated by multiple re-intubations, HCAP, and spontaneous life- threatening retroperitoneal bleeding, DVTs, and now [id number] renal failure/kidney injury requiring renal replacement therapy in the ICU. He remains very critically ill with multiple organ systems involved. respiratory failure has been refractory to weaning secondary to his multiple organ failure. off pathway. will attempt volume removal today with ongoing forced diuresis in an attempt to improve lung function. however, with tenuous renal function, may be difficult. NEURO/PSYCH: Acute metabolic encephalopathy- persistent Quadriparesis secondary to suspected transverse myelitis Recurrent falls Pain secondary to retroperitoneal hematoma. oxycodone 10mg po q4h scheduled for pain propofol for sedation, goal RASS -2. continue fentanyl for additional pain control/sedation. Suspected transverse myelitis. Received methylprednisolone 250 mg IV every 6 hours 01/27-02/02, started back on hydrocortisone 02/21/17, initially tapering to 50 mg IV every 8 hours starting received 1 dose at 2100 prior to becoming hypotensive. weaning hydrocortisone taper. LP 01/26 and 02/01. CSF culture negative 01/26, 02/01 Oligoclonal bands negative. CSF/serum IgG index is not elevated. VDRL nonreactive. Cryptococcal antigen negative. Brain MRI 01/23 no acute stroke. Few scattered lacunar infarcts of the brainstem. Moderate chronic white matter changes. MRI cervical/thoracic spine- mild spinal stenosis C3/C4 to C6/C7. No cord compression. RPR negative Neurology has been following, Dr. Crenshaw. Repeat CT brain 02/10 - negative Continue PT/OT RESP: Acute hypoxemic respiratory failure Healthcare associated pneumonia/Aspiration Pneumonia Right-sided chest tube placed for pleural effusion. PRVC Ventilator bundle Albuterol/ipratropium aerosols every 6 hours with albuterol aerosols every 2 hours prn VQ scan 02/10 low probability for PE. CT chest 02/10 - left lower lobe collapse and consolidation. CT chest 02/27 revealed right greater than left pleural effusions. Extubated 02/23. 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 unable to wean successfully due to volume overload and multiple organ failure. will attempt volume removal today in an attempt to assist with weaning from mechanical ventilation. if no improvements soon, will need to consider tracheostomy. CV: Severe sepsis - resolved. Systolic heart failure likely chronic with ejection fraction 20-25% Hyperlipidemia History of hypertension Mild TR Elevated troponin likely type II demand ischemia off vasopressors. Holding metoprolol and amlodipine in light of recent hypotension. atorvastatin 10 mg by mouth daily for dyslipidemia. Troponin 0.[address]-T changes. Patient denying chest discomfort. 2-D echocardiogram 01/11 revealed EF 20-25%. Mild TR. Pulmonary arterial pressures were normal around 20 Troponin 6.55 on 03/02 and trending downward. Likely will need stress test of heart once stable. Cannot anticoagulate due to retroperitoneal hematoma the present time GI: Large right retroperitoneal hematoma Severe acute protein calorie malnutrition Nausea/vomiting - resolved. Diarrhea Gastritis Diverticulosis Internal and external hemorrhoids Hiatal hernia Elevated lipase Hypernatremia Hypokalemia 02/27 CT chest/abdomen and pelvis - 9.4 x 7.5 renal and 16 x 12 cm right psoas muscle hematoma. Fluid around liver and spleen. Right-sided nephrolithiasis CTA abdomen 02/28 - possible blushing around iliac/lumbar vessels Discussed with IR. s/p attempted embolization CT abdomen and pelvis 02/10 atrophic left kidney. Bilateral inguinal hernias fat- containing. Nonobstructing 12 mm right kidney stone repeat CT abd/pelvis did not show evidence of obstruction. patient clinically has been having diarrhea (c. diff negative 02/19). also with nausea/vomiting of unclear etiology. EGD/Colonoscopy-02/22/17 showed gastritis esophagitis, hiatal hernia, diverticulosis and multiple polyps in descending colon and sigmoid which were snared biopsied. Biopsy pending Dr. Lewis consulted for intervention if needed for elevated IAP. will continue to check daily. Continue on tube feeds with Nepro 30 cc an hour today. increase to 40/day today. increase free water 300 mL q4h for hypernatremia ICU electrolyte replacement protocol daily BMP FEN/RENAL: Acute kidney injury in the setting of Chronic kidney disease stage 3-4 History of uric acid kidney stones with prior stent BPH Nonfunctioning left kidney Acute intravascular volume overload Sloan placed due to urinary retention and worsening creatinine. Monitor intake and output q1hr. Monitor electrolytes. RIOS/SPEP negative. 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 Recommended nephrostomy tube if obstruction Nephrology consulted may need ultrafiltration again today for volume removal. Due to acute illness holding tamsulosin 0.4 mg by mouth daily for BPH continue Bumex drip today. goal net -2L/24h. ID: Septic shock- resolved. Abscess and Suppurative thrombophlebitis left upper extremity MSSA bacteremia Klebsiella UTI ESBL positive Acute aspiration pneumonia/HCAP Broad-spectrum antibiotics with oxacillin 2 g IV every 4 hours till March 26 initially. This is been held in light of current change to regimen to fluconazole, ertapenem Blood cultures 2, UA ESBL positive Klebsiella UTI ID on board. HEME: Acute blood loss anemia DVT, bilateral posterior tibial vein, IVC filter Septic thrombophlebitis with occlusive thrombus mid cephalic and basilic vein side Received 10 PRBC, 14 FFP, 2 platelets, 1 cryo-02/28 Past 24 hours received 3 units PRBCs Serial hemoglobins every 6 hours Recheck coags Ultrasound 01/23/17 - Bilateral lower extremity with occlusive posterior tibial vein DVTs. Heparin was initially started for DVT but was placed on hold due to LP with suspected traumatic tap. Currently holding full anticoagulation with enoxaparin 100 mg IV twice a day due to anemia as of 02/26 IVC filter was placed 01/25/17. Ultrasound LUE 02/10 occlusive thrombus mid cephalic vein, basilic vein.s. Transfuse 3 units PRBCs 02/27 Transfuse 2 units PRBCs 03/01. ENDO: Diabetes mellitus Hypoglycemia History of prior adrenal insufficiency with shock Gout EGD colonoscopy completed 02/22. gastritis and esophagitis, colon polyps Started Hydrocortisone 100 mg IV q8hr 02/21/17 (Recent high dose steroids use now hypotensive, hypoglycemic), start steroid taper. Accu-Cheks to maintain euglycemia Novulin R every 4 hours MSK: Right distal ulna fracture. Dr. Nathan with orthopedics has evaluated and recommended nonoperative management. Right wrist splint in place. PROPH: Pantoprazole 40 mg IV twice a day for stress ulcer prophylaxis. Has IVC filter. Therapeutic enoxaparin currently on hold ACCESS: right IJ CVL placed 03/03. A left IJ hemodialysis catheter placed 03/01. Overall impression: Critically ill with ongoing multiple organ failure. volume overload complicating picture. continue forced diuresis. unable to successfully wean from mechanical ventilation due to organ failure. remains critically ill off pathway. Critical care 39 mins, exclusive of separately billable procedures. Anthony Rivas MD Mar 06, 2017 08:20
[2017-03-06] MEDS: hydrALAZINE HCL 20 MG/ML VIAL IV PUSH PRN (08:45)
[2017-03-06] MEDS: SODIUM CHLORIDE 0.9% FLUSH 10 ML FLUSH IV FLUSH SCH ×3 (08:46→21:00)
[2017-03-06] MEDS: LACTOBACILLUS ACIDOPHILUS TAB PO SCH ×3 (08:46→18:23)
--- NOTE | 2017-03-06 10:32 | HHI.NPPN ---
Subjective History of Present Illness 61-year-old with history of urinary stone Additional Remarks Patient remain intubated and sedated. Review of Systems General Constitutional: Fatigue Objective Data Data Vital Signs Date Time Temp Pulse Resp B/P (MAP) Pulse Ox O2 Delivery O2 Flow Rate FiO2 03/06/17 09:07 97 40 03/06/17 08:00 40 03/06/17 07:00 97 Mechanical Ventilator 40 03/06/17 07:00 97 Mechanical Ventilator 40 03/06/17 06:00 96 03/06/17 04:00 96 03/06/17 04:00 40 03/06/17 04:00 98.5 96 16 137/84 (101) 97 03/06/17 03:17 98 40 03/06/17 02:00 90 03/06/17 00:23 96 40 03/06/17 00:00 98.7 100 16 131/82 (98) 96 03/06/17 00:00 40 03/06/17 00:00 102 03/05/17 22:00 106 03/05/17 21:59 97 40 03/05/17 20:00 40 03/05/17 20:00 110 03/05/17 20:00 98.2 106 16 152/95 (114) 98 03/05/17 19:00 99 Mechanical Ventilator 40 03/05/17 18:00 110 03/05/17 16:00 98.4 100 16 146/89 (108) 97 03/05/17 16:00 100 03/05/17 16:00 40 03/05/17 14:54 98 40 03/05/17 14:00 108 03/05/17 12:00 106 03/05/17 12:00 40 03/05/17 12:00 98.4 106 12 141/87 (105) 97 03/05/17 11:45 96 40 03/05/17 11:45 40 -: 03/06/17 0544 03/06/17 0544 Physical Exam General Appearance: Pale Eyes Eye Exam: Pupils Equal Throat Throat Exam: Oral Mucosa [place] & Moist Neck Neck Exam: Neck Supple Pulmonary Resp Exam: Crackles, Rhonchi, Decreased Bases, Diminished Breath Sounds Cardiology CV Exam: Normal Sinus Rhythm, Tachycardia Gastrointestinal/Abdomen GI Exam: Non-Tender, Distended Extremeties Extremities Exam: Pitting Edema, Dependent Edema Assessment/Plan Problem List: (1) Acute renal failure ICD Codes: N17.9 - Acute kidney failure, unspecified Status: Acute Plan: Patient developed Hypotension,sepsis staph aureus respiratory failure and increase WBC. Had aspiration pneumonia, developed sepsis with ARF again creatinine declined slightly post hydration he also had retroperitoneal bleed Elevated intra abdominal pressures - improved now. 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 Has edema,increased UOP but he has gained more then 30 kg of fluids needs UF 3/4 L get fluid off continue with Bumex drip (2) CKD (chronic kidney disease) stage 3, GFR 30-59 ml/min ICD Codes: N18.3 - Chronic kidney disease, stage 3 (moderate) Status: Chronic Plan: Ultrasound revealed chronic kidney disease there is no kidney stones (3) Diabetes ICD Codes: E11.9 - Type 2 diabetes mellitus without complications Plan: Continue to monitor (4) Distal end of ulna fracture, closed ICD Codes: S52.609A - Unspecified fracture of lower end of unspecified ulna, initial encounter for closed fracture Status: Acute Plan: Orthopedic is following Problem Qualifiers (1) Acute renal failure: Qualified Codes: N17.9 - Acute kidney failure, unspecified Laura Liao MD Mar 06, 2017 10:32
[2017-03-06] MEDS: PANTOPRAZOLE SODIUM 40 MG VIAL IV PUSH SCH ×2 (11:02→23:52)
[2017-03-06] MEDS: SODIUM CHLOR 0.9% 1000 ML INJ 1,000 ML IV SCH (13:00)
[2017-03-06] MEDS: INSULIN DETEMIR 100 UNITS/ML VIAL SQ SCH (21:19)
[2017-03-06] MEDS: ATORVASTATIN 10 MG TAB PO SCH (21:27)
[2017-03-06] MEDS: ERTAPENEM INJ 1,000 MG in SODIUM CHLORIDE 0.9% INJ 100 ML IV SCH (21:27)
[2017-03-07] VITALS (14 sets, daily range): BP systolic 95–136; BP diastolic 54–87; PULSE 92–112; RESP 15–16; TEMP 98.2–99.3; O2SAT 94–100
[2017-03-07] MEDS: HYDROCORTISONE SOD SUCCINATE 100 MG VIAL IV SCH (03:47)
[2017-03-07] MEDS: RESP: ALBUTEROL 2.5 MG/IPRATROPIUM 0.5 MG NEB (SCH) NEB ×5 (03:51→20:06)
[2017-03-07] MEDS: FREE WATER G-TUBE SCH ×7 (04:00→23:28)
[2017-03-07] MEDS: INSULIN NovoLIN REGULAR SUPPLEMENTAL SCALE SQ SCH ×6 (04:10→23:28)
[2017-03-07] MEDS: METOCLOPRAMIDE HCL 10 MG/2 ML VIAL IV PUSH SCH ×3 (05:09→21:07)
[2017-03-07] MEDS: oxyCODONE HCL ORAL CONC 5 MG/0.25 ML SYRINGE PO SCH ×5 (05:11→21:08)
[2017-03-07 05:55] LABS: HEMATOCRIT 28.2 % (39.0-51.0); MEAN CELL VOLUME 89.3 FL (80.0-100.0); MEAN CORPUSCULAR HEMOGLOBIN 30.4 PG (27.0-34.0); PLATELET COUNT 135 TH/MM3 (150-450); RED BLOOD COUNT 3.15 MIL/MM3 (4.50-5.90); RED CELL DISTRIBUTION WIDTH 15.5 % (11.6-17.2); REVIEW FLAG FINAL; WHITE BLOOD COUNT 10.2 TH/MM3 (4.0-11.0)
[2017-03-07] MEDS: ARTIFICIAL TEARS OPTH SOLN 15 ML BTL EACH EYE SCH ×3 (06:00→21:07)
[2017-03-07] MEDS: PROPOFOL 1000 MG/100 ML INJ 100 ML IV PRN ×3 (06:24→14:00)
[2017-03-07 06:26] LABS: BICARBONATE 24.8 MEQ/L (21.0-32.0)
[2017-03-07 06:30] LABS: POTASSIUM 2.7 MEQ/L (3.5-5.1)
[2017-03-07] MEDS: fentaNYL DRIP 250 ML IV PRN (08:01)
[2017-03-07] MEDS: SODIUM CHLORIDE 0.9% FLUSH 10 ML FLUSH IV FLUSH SCH ×3 (08:02→20:16)
[2017-03-07] MEDS: CHLORHEXIDINE 0.12% (ORAL KIT) 15 ML CUP MT SCH ×2 (08:02→20:16)
[2017-03-07] MEDS: LACTOBACILLUS ACIDOPHILUS TAB PO SCH ×3 (08:20→18:00)
--- NOTE | 2017-03-07 09:51 | HHI.CCPN ---
Subjective Remarks/Hospital Course Date of admission: 01/22 Date of critical care medicine consult 02/10 due to acute hypoxemic respiratory failure requiring emergent intubation 62-year-old male with a past medical history of hypertension, hyperlipidemia, diabetes mellitus, gout, uric acid kidney stones, kidney disease of unknown stage who originally presented to [facility] emergency department on 01/22 after a fall in which he sustained a right distal ulna fracture. He had been experiencing a gradual primarily lower extremity weakness as well as upper extremity weakness that was progressive. Neurology consult was obtained. MRI revealed no acute stroke. He had multifocal white matter changes. Tiny lacunar infarcts of the brainstem. Lumbar MRI report states L4-L5 disc protrusion with cetnral canal stenosis. Dr. Blackwell evaluated and states no cord compression on MRI C/T spine and recommended nonoperative management. Symptoms were felt to be consistent with transverse myelitis and he underwent Solumedrol 250 mg IV q6 hours 01/27-02/02. He also was found to have occlusive thrombus in the bilateral posterior tibial veins. Heparin was being avoided because he had traumatic lumbar puncture on 01/26 and 02/01. IVC filter was placed 01/25. He was undergoing physical therapy, reportedly making some improvements with plan to eventually discharged home with his son (max assist standing, and bed to chair per PT note). Apparently he had some vomiting the evening of 02/09 and additional vomiting on 02/10. He had a fever 102.8 on 02/09. Last recorded bowel movement was 02/03. Tonight he had acute onset of severe hypoxemia and respiratory distress. [facility] called and he was brought emergently to [facility] where his sats were 64% on 100% nonrebreather with mean arterial pressure 44. He was emergently intubated, CVL and art line placed. He is in septic shock. SUBJ: 02/11: Patient remains intubated sedated, critically ill. FiO2 reduced to 80% after increasing PEEP to 12. In severe septic shock Levophed at 16 mcg/m, vasopressin at 0.04 international units. D/W vascular surgery Dr. Enciso. He performed bedside Left upper extremity incision and debridement and excision of septic cephalic vein. 02/12: Remains intubated sedated profoundly septic, in shock on vasopressin and 7 mcg/min Levophed. FiO2 has improved to 45%, WBC count remains elevated with 20 ,000 white count significant left shift. Slight improvement in creatinine 2.9 urine output 750 ml 24 hours. 2-D echo shows LV ejection fraction 20-25%, no vegetation reported. Blood cultures 4 staph aureus. Wound culture pending 02/13: Remains critically ill but stable to improving. WBC count is down to 16, creatinine improving to 2.36. Off all pressors. Urine output also improving. 1.5L in 24 hours 02/14: Extubated 02/13. Tolerating well. WBC now down to 12.8. Creat improving 2.3 to 2. UO 3.4L. remains off all pressors. Was started on Precedex yesterday night for agitation, currently on 0.5 g per KG per hour. Chest x-ray shows left more than right air space disease 02/20/17 Re consult: 62-year-old male who was originally admitted for lower extremity weakness and found to have what was thought to be possible transverse myelitis. His hospital course his included a healthcare associated pneumonia, septic thrombophlebitis, DVT. He was most recently in the hospital floor where he had significant nausea and vomiting and diarrhea. His C. difficile test was recently negative. However, he has experienced worsening acute on chronic renal failure, hypotension, tachycardia, and severe hypoxemia. He did have a bout of vomiting earlier today, and his hospitalist attending suspects that he may have aspirated. He arrives by rapid response to the ICU with a nonrebreather in place in severe respiratory distress with SPO2 of 85%. I emergently intubate the patient, see separate procedure note for details. At this point the patient was hypotensive and tachycardic. He does have a history of an EF of 20%, however clinically he appears in florid septic shock. I placed central line and arterial line started vasopressors and gentle IV fluid resuscitation with 1 L of LR. Patient today was empirically broadened to vancomycin and Zosyn from his oxacillin which was initially treating MSSA bacteremia. He is recultured. Critical-care medicine is consulted to evaluate and manage his worsening multiorgan system failure and decompensated septic shock 02/21: Patient remains intubated sedated. Becomes anxious tachypnea on sedation lightening. Chest x-ray shows mild left lower lobe infiltrate. WBC count is slightly improved today from 23.2 t0 21. C Diff negative. UO adequate, creat slightly worsening. 1.57 today 02/22: Remains intubated sedated tolerated CPAP yesterday, plan is for EGD/ Colonscopy. WBC count back to normal. UO adequate. Creat stable 02/23: Tolerating CPAP trials following commands. Will do a spontaneous breathing trials. Status post EGD colonoscopy yesterday -Gastritis, esophagitis. Diverticulosis and multiple polyps. Urine output adequate but creatinine increasing to 1.7 with patient requiring multiple straight catheterization. We'll reinsert Sloan. 02/24: Breathing comfortably 24 hours after extubation. Protects airway well. 02/25: Excoriate bottom, will place rectal FMS. Start pureed diet. 02/26: Afebrile. Complaining of nausea and vomiting this afternoon. Increased stool output. Continue potassium replacement today. 02/27: 10 PM overnight, acutely hypotensive. Received 3 units PRBCs. Antibiotic coverage broadened to piperacillin/tazobactam, cortisol and 1 dose of vancomycin. Oxacillin drip currently on hold. Symptomatically, patient continues to vague abdominal pain/nausea vomiting which is unchanged for the past several days. Lipase elevated yesterday. Lactic acid normal. Troponin normal. Urinary retention after removal of Sloan. Straight catheter 1300. Cc 02/28: New diagnosis large retroperitoneal hematoma. Received 10 PRBC, 14 FFP, 2 platelets, 1 cryo-, 6 g calcium chloride, 2 is magnesium sulfate and 4 mg Bumex. CTA abdomen revealed possible arterial bleeds iliac, lumbar. Patient is currently on norepinephrine and epinephrine drips and possible need right nephrostomy tube placement due to large hematoma compressing ureter. Intra-abdominal bladder pressures are currently 13 03/01: Afebrile. Received 25 g albumin and 1 unit PRBCs overnight. Intra- abdominal bladder pressures currently 19. Currently on 3 micrograms per minute of norepinephrine. Iipwh-yl-snex 1 out of 4 on 4 mics grams per kilogram per minute of cisatracurium. 03/02: Slightly hypothermic overnight. Hemoglobin appears to have stabilized. Troponin bump overnight likely secondary to demand ischemia from hypotension. Hemodynamically stable off all vasopressors. 03/03: Received 1 PRBCs overnight. 3 units currently. Off all vasopressors. Likely rebleeding. Stool is dark. 03/04: Remains unstable. Ventilator dependent. 03/05: afebrile. hgb stable. 03/06: bumex drip started overnight. good uop after bumex initiated. still grossly volume overloaded. Cr downtrending. more awake with transition to propofol. still too volume overloaded to tolerate extubation. hgb stable. Subjective 03/07: Afebrile. Tolerating tube feeds at goal with Nepro. Positive BM. On low-dose fentanyl and propofol drips. Potassium currently being replaced. Objective Vital Signs Date Time Temp Pulse Resp B/P (MAP) Pulse Ox O2 Delivery O2 Flow Rate FiO2 03/07/17 08:39 100 45 03/07/17 06:00 92 03/07/17 04:00 98.2 16 130/83 (99) 03/06/17 20:00 Mechanical Ventilator Intake and Output 03/07/17 03/07/17 03/08/17 08:00 16:00 00:00 Intake Total 1120 ml Output Total 2020 ml Balance -900 ml Result Diagram: 03/07/17 0540 03/07/17 0540 Other Results Microbiology Date/Time Source Procedure Growth Status 02/27/17 03:48 Blood Peripheral Aerobic Blood Culture - Final NO GROWTH IN 5 DAYS Complete 02/27/17 03:48 Blood Peripheral Anaerobic Blood Culture - Final NO GROWTH IN 5 DAYS Complete 02/01/17 09:55 Cerebral Spinal Fluid Lumbar Puncture Fungal Smear - Final NO FUNGAL ELEMENTS SEEN. Complete 02/01/17 09:55 Cerebral Spinal Fluid Lumbar Puncture Fungal Culture - Final NO GROWTH IN 4 WEEKS Complete 02/17/17 05:55 Stool Stool Stool Occult Blood (GREGORY) - Final HEMOCCULT POSITIVE Complete 02/20/17 12:55 Sputum Endotracheal Gram Stain - Final Complete 02/20/17 12:55 Sputum Endotracheal Sputum Culture - Final HEAVY GROWTH NORMAL RESPIRATORY EARL Complete 02/27/17 08:32 Urine Catheterized Urine Urine Culture - Final Klebsiella Pneumoniae Esbl Pos Complete 02/11/17 09:10 Abscess Arm Acid Fast Stain - Final NO ACID FAST BACILLI SEEN Resulted 02/11/17 09:10 Abscess Arm Mycobacterial Culture - Preliminary NO GROWTH IN 3 WEEKS Resulted Imaging Last Impressions Chest X-Ray 03/05/17 0400 Signed Impressions: Service Date/Time: Sunday, March 05, 2017 05:03 - CONCLUSION: 1. Left lower lobe atelectasis versus pneumonia. There has been no significant change when compared to the prior exam. Yung Fowler MD Aortography 02/28/17 0000 Signed Impressions: Service Date/Time: Tuesday, February 28, 2017 08:01 - CONCLUSION: 1. Active hemorrhage from distal right lateral sacral and iliolumbar branches successfully coil and Gelfoam embolized, as above. Juan Bhakta MD Abdomen/Pelvis CT 02/28/17 0000 Signed Impressions: Service Date/Time: Tuesday, February 28, 2017 06:51 - CONCLUSION: 1. The right retroperitoneal hematoma has increased in size, as above. There are 2 serpiginous arterially enhancing structures visualized, one in the right psoas muscle and another extending into the hematoma at the right iliac fossa. These could represent sites of continued active bleeding. 2. Stable moderate size left and small right pleural effusion with associated compressive atelectasis. 3. Stable small volume of free fluid in the abdomen and pelvis. There is also anasarca. The findings concerning the retroperitoneal hematoma were discussed with Dr. Aguiar via telephone at approximately 7: 10 AM on 02/28/2017. Angelo Allen MD Chest CT 02/27/17 0000 Signed Impressions: Service Date/Time: Monday, February 27, 2017 18:12 - CONCLUSION: 1. Bilateral pleural effusions with bibasilar atelectasis, left greater than right. Tom Sanchez MD Abdomen X-Ray 02/26/17 0000 Signed Impressions: Service Date/Time: Sunday, February 26, 2017 14:52 - CONCLUSION: 1. Nonobstructive bowel gas pattern. Juan Bhakta MD Upper Extremity Ultrasound 02/10/17 0000 Signed Impressions: Service Date/Time: Friday, February 10, 2017 18:46 - CONCLUSION: Occlusive thrombus in the cephalic and basilic veins. Benjamin Person MD Lung Scan- Nuclear Medicine 02/10/17 0000 Signed Impressions: Service Date/Time: Friday, February 10, 2017 22:17 - CONCLUSION: Low probability pulmonary embolism. Candido Patton MD Head CT 02/10/17 0000 Signed Impressions: Service Date/Time: Friday, February 10, 2017 23:51 - CONCLUSION: Negative noncontrast CT brain. Candido Patton MD Wrist X-Ray 02/06/17 0000 Signed Impressions: Service Date/Time: Monday, February 06, 2017 12:50 - CONCLUSION: Minimally displaced distal radius and ulnar fractures. Armando Dodd MD Lumbar Puncture Fluoroscopy 02/01/17 0000 Signed Impressions: Service Date/Time: January 09:35 - CONCLUSION: Uncomplicated fluoroscopically guided lumbar puncture. CSF was clear. Nabeel Peralta MD Head Magnetic Resonance Angiography 01/27/17 Signed Impressions: Service Date/Time: Friday, January 27, 2017 10:33 - CONCLUSION: No intracranial vascular abnormality is identified. There is no aneurysm visualized. Angelo Allen MD IVC Filter Placement X-Ray 01/25/17 Signed Impressions: Service Date/Time: January 10:29 - CONCLUSION: Uncomplicated inferior vena cava filter placement as above. Yung Fowler MD Thoracic Spine MRI 01/24/17 Signed Impressions: Service Date/Time: Tuesday, January 24, 2017 22:29 - CONCLUSION: 1. Mild degenerative spondylosis most prominently at T11-L1 with slight effacement of the anterior thecal sac and left lateral recess. No significant neural foraminal stenosis. 2. No acute fracture. Juan Bhakta MD Renal Ultrasound 01/23/17 Signed Impressions: Service Date/Time: Monday, January 23, 2017 08:53 - CONCLUSION: 1. Evidence of chronic parenchymal disease of both kidneys. No obstructive uropathy or other acute abnormality demonstrated. 2. Trace ascites, nonspecific. Angelo Garrido MD Lumbar Spine MRI 01/23/17 0000 Signed Impressions: Service Date/Time: Monday, January 23, 2017 17:01 - CONCLUSION: 1. At L4-5 is a broad-based disc protrusion with severe central canal and lateral recess stenosis and flattening of the exiting right L4 nerve root. 2. L5-S1 there is a disc protrusion and moderate stenosis with flattening of the exiting L5 nerve roots bilaterally. 3. At L3-4 there is a moderate to severe central stenosis and lateral recess stenosis with mild foraminal stenosis. 4. No acute fracture or spondylolisthesis. Trace Holloway MD Lower Extremity Ultrasound 9/5/17 0000 Signed Impressions: Service Date/Time: Monday, January 23, 2017 09:53 - CONCLUSION: Bilateral focal lower extremity DVT involving the posterior tibial veins. Angelo Garrido MD Cervical Spine MRI 01/23/17 Signed Impressions: Service Date/Time: Monday, January 23, 2017 17:01 - CONCLUSION: 1. Multilevel cervical spine degenerative changes as above. 2. Mild degrees of spinal stenosis at C3/C4-C6/C7. No cord compression or cord signal abnormality. 3. Age indeterminate left paracentral/foraminal disc protrusion at C6/C7. 4. Multilevel foraminal stenosis, most severe on the left at C6/C7. Please see individual levels above. 5. No fracture or subluxation of the cervical spine. Angelo Garrido MD Brain MRI 01/23/17 Signed Impressions: Service Date/Time: Monday, January 23, 2017 17:01 - CONCLUSION: 1. No acute stroke or other acute intracranial abnormality demonstrated. 2. Moderate severity chronic white matter changes, nonspecific but most likely related to chronic small vessel disease. 3. Few scattered tiny lacunar infarcts of the brainstem. 4. Given the findings are not entirely specific, clinical evaluation for possible multiple sclerosis recommended. Angelo Garrido MD Knee X-Ray 01/22/[id number] Signed Impressions: Service Date/Time: Sunday, January 22, 2017 21:17 - CONCLUSION: 1. Evidence of moderate to large joint effusion. 2. No acute fracture or malalignment. 3. Mild 3 compartment osteoarthritic change. Benjamin Person MD Hip and Pelvis X-Ray [id number]/22/[id number] Signed Impressions: Service Date/Time: Sunday, January 22, 2017 21:10 - CONCLUSION: 1. Mild to moderate degenerative change of both hips with no acute fracture or malalignment. There is flattening and remodeling of the right humeral head. Benjamin Person MD Objective Remarks GENERAL: 62-year-old male, critically ill currently orotracheally intubated HEENT: Normocephalic. Atraumatic. Pupils equal, round, reactive, conjugate by 3 mm bilaterally. NECK: Trachea is midline. Obese. No JVD or thyromegaly right IJ TLC, left IJ hemodialysis catheter clean dry and intact CHEST: Diminished breath sounds. equal chest rise. CARDIOVASCULAR: RRR. S1, S2. No S4 without murmur ABDOMEN: Distended. Firm to palpation. Umbilical hernia is reducible. MUSCULOSKELETAL: Pulses 2+. 1+ bilateral upper and lower extremity edema. Wound VAC on left upper extremity NEUROLOGICAL: Cranial nerves II through XII grossly intact. Moves upper extremity bilaterally spontaneously to command. Withdrawals bilateral lower extremities. Procedures IVC filter placement 01/25/2017 LP 01/26/2017 Line: Central Venous Catheter Side: Left Location: Subclavian A/P Problem List: (1) Septic shock ICD Code: A41.9 - Sepsis, unspecified organism; R65.21 - Severe sepsis with septic shock Status: Acute (2) Acute respiratory failure ICD Code: J96.00 - Acute respiratory failure, unspecified whether with hypoxia or hypercapnia Status: Acute (3) Thrombophlebitis arm ICD Code: I80.8 - Phlebitis and thrombophlebitis of other sites (4) Aspiration pneumonia ICD Code: J69.0 - Pneumonitis due to inhalation of food and vomit Status: Acute (5) Atelectasis of left lung ICD Code: J98.11 - Atelectasis Status: Acute (6) Quadriparesis ICD Code: G82.50 - Quadriplegia, unspecified Status: Acute (7) DVT (deep venous thrombosis) ICD Code: I82.409 - Acute embolism and thrombosis of unspecified deep veins of unspecified lower extremity (8) Altered mental status ICD Code: R41.82 - Altered mental status, unspecified Status: Acute (9) CKD (chronic kidney disease) stage 3, GFR 30-59 ml/min ICD Code: N18.3 - Chronic kidney disease, stage 3 (moderate) Status: Chronic (10) Acute renal failure ICD Code: N17.9 - Acute kidney failure, unspecified Status: Acute (11) Diabetes mellitus ICD Code: E11.9 - Type 2 diabetes mellitus without complications Status: Chronic (12) Distal end of ulna fracture, closed ICD Code: S52.609A - Unspecified fracture of lower end of unspecified ulna, initial encounter for closed fracture Status: Acute (13) Gout ICD Code: M10.9 - Gout, unspecified Status: Chronic Assessment and Plan NEURO/PSYCH: Acute metabolic encephalopathy- persistent Quadriparesis secondary to suspected transverse myelitis Recurrent falls Pain secondary to retroperitoneal hematoma. Patient is currently on propofol at 20 mcg/kg minutes/fentanyl drip at 125 mcg an hour for sedation/analgesia while intubated Goal of RA SS -2 Suspected transverse myelitis. Received methylprednisolone 250 mg IV every 6 hours 01/27-02/02, started back on hydrocortisone 02/21/17, initially tapering to 50 mg IV every 8 hours starting received 1 dose at 2100 prior to becoming hypotensive. weaning hydrocortisone taper and will discontinue 03/09 LP 01/26 and 02/01. CSF culture negative 01/26, 02/01 Oligoclonal bands negative. CSF/serum IgG index is not elevated. VDRL nonreactive. Cryptococcal antigen negative. Brain MRI 01/23 no acute stroke. Few scattered lacunar infarcts of the brainstem. Moderate chronic white matter changes. MRI cervical/thoracic spine- mild spinal stenosis C3/C4 to C6/C7. No cord compression. RPR negative Neurology has been following, Dr. Crenshaw. Repeat CT brain 02/10 - negative Continue PT/OT RESP: Acute hypoxemic respiratory failure Healthcare associated pneumonia/Aspiration Pneumonia Right-sided chest tube [facility] for pleural effusion[facility] Ventilator bundle Albuterol/ipratropium aerosols every 6 hours with albuterol aerosols every 2 hours prn VQ scan 02/10 low probability [address] PE. CT chest 02/10 - left lower lobe collapse and consolidation. CT chest 02/27 revealed right greater than left pleural effusions. Extubated 02/23. 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 unable to wean successfully due to volume overload and multiple organ failure. will attempt volume removal today in an attempt to assist with weaning from mechanical ventilation. if no improvements soon, will need to consider tracheostomy. CV: Severe sepsis - resolved. Systolic heart failure likely chronic with ejection fraction 20-25% Hyperlipidemia History of hypertension Mild TR Elevated troponin likely type II demand ischemia Currently off all vasopressors Holding metoprolol and amlodipine in light of recent hypotension. atorvastatin 10 mg by mouth daily for dyslipidemia. Troponin 0.[address]-T changes. Patient denying chest discomfort. 2-D echocardiogram 01/11 revealed EF 20-25%. Mild TR. Pulmonary arterial pressures were normal around 20 Troponin 6.55 on 03/02 and trending downward. Likely will need stress test of heart once stable. Cannot anticoagulate due to retroperitoneal hematoma the present time GI: Large right retroperitoneal hematoma Erosive esophagitis Adematous/hyperplastic colon polyps Severe acute protein calorie malnutrition Nausea/vomiting - resolved. Diarrhea Gastritis Diverticulosis Internal and external hemorrhoids Hiatal hernia Elevated lipase Hypernatremia Hypokalemia 02/27 CT chest/abdomen and pelvis - 9.4 x 7.5 renal and 16 x 12 cm right psoas muscle hematoma. Fluid around liver and spleen. Right-sided nephrolithiasis CTA abdomen 02/28 - possible blushing around iliac/lumbar vessels Discussed with IR. s/p attempted embolization CT abdomen and pelvis 02/10 atrophic left kidney. Bilateral inguinal hernias fat- containing. Nonobstructing 12 mm right kidney stone repeat CT abd/pelvis did not show evidence of obstruction. patient clinically has been having diarrhea (c. diff negative 02/19). also with nausea/vomiting of unclear etiology. EGD/Colonoscopy-02/22/17 showed gastritis esophagitis, hiatal hernia, diverticulosis and multiple polyps in descending colon and sigmoid which were snared biopsied. Biopsy pending Dr. Lewis consulted for intervention if needed for elevated IAP. will continue to check as needed Continue on tube feeds with Nepro 40 cc an hour today. Lansoprazole for GI prophylaxis FEN/RENAL: Acute kidney injury in the setting of Chronic kidney disease stage 3-4 History of uric acid kidney stones with prior stent BPH Nonfunctioning left kidney Acute intravascular volume overload Hypokalemia Sloan placed due to urinary retention and worsening creatinine. Monitor intake and output q1hr. Monitor electrolytes. RIOS/SPEP negative. 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 Recommended nephrostomy tube if obstruction Nephrology consulted may need ultrafiltration again today for volume removal. Due to acute illness holding tamsulosin 0.4 mg by mouth daily for BPH Free water 200 mL q4h for hypernatremia ICU electrolyte replacement protocol daily BMP 80 mEq KCl today. Recheck this afternoon ID: Septic shock- resolved. Abscess and Suppurative thrombophlebitis left upper extremity MSSA bacteremia Klebsiella UTI ESBL positive Acute aspiration pneumonia/HCAP Broad-spectrum antibiotics with oxacillin 2 g IV every 4 hours till March 26 initially. This is been held in light of current change to regimen to fluconazole, ertapenem and vancomycin intermittently dosed per ID Blood cultures 2, UA ESBL positive Klebsiella UTI ID on board. HEME: Acute blood loss anemia DVT, bilateral posterior tibial vein, IVC filter Septic thrombophlebitis with occlusive thrombus mid cephalic and basilic vein side Received 10 PRBC, 14 FFP, 2 platelets, 1 cryo-02/28 Past 24 hours received 3 units PRBCs Serial hemoglobins every 6 hours Recheck coags Ultrasound 01/23/17 - Bilateral lower extremity with occlusive posterior tibial vein DVTs. Heparin was initially started for DVT but was placed on hold due to LP with suspected traumatic tap. Currently holding full anticoagulation with enoxaparin 100 mg IV twice a day due to anemia as of 02/26 IVC filter was placed 01/25/17. Ultrasound LUE 02/10 occlusive thrombus mid cephalic vein, basilic vein.s. Transfuse 3 units PRBCs 02/27 Transfuse 2 units PRBCs 03/01. ENDO: Diabetes mellitus Hypoglycemia History of prior adrenal insufficiency with shock Gout EGD colonoscopy completed 02/22. gastritis and esophagitis, colon polyps Started Hydrocortisone 100 mg every 8 hours 02/21/17 (Recent high dose steroids use now hypotensive, hypoglycemic), start steroid taper. Currently at 50 twice a day Accu-Cheks to maintain euglycemia Novulin R every 4 hours. 17 slight scale insulin past 24 hours Insulin detemir 5 units twice a day. MSK: Right distal ulna fracture. Dr. Nathan with orthopedics has evaluated and recommended nonoperative management. Right wrist splint in place. PROPH: Lansoprazole 30 mg twice a day twice a day for stress ulcer prophylaxis. Has IVC filter. Therapeutic enoxaparin currently on hold ACCESS: right IJ CVL placed 03/03. A left IJ hemodialysis catheter placed 03/01. Problem Qualifiers (1) Aspiration pneumonia: (2) DVT (deep venous thrombosis): Qualified Codes: I82.443 - Acute embolism and thrombosis of tibial vein, bilateral (3) Acute renal failure: Qualified Codes: N17.9 - Acute kidney failure, unspecified (4) Diabetes mellitus: (5) Gout: Janes Aguiar MD Mar 07, 2017 09:51
[2017-03-07 10:47] LABS: MAGNESIUM 1.6 MG/DL (1.5-2.5)
--- NOTE | 2017-03-07 12:32 | HHI.NPPN ---
Subjective History of Present Illness 61-year-old with history of urinary stone Additional Remarks Patient remain intubated open eyes Review of Systems General Constitutional: Fatigue Objective Data Data 03/07/17 03/08/17 19:00 07:00 Intake Total 10 ml Balance 10 ml IV Total 10 ml Vital Signs Date Time Temp Pulse Resp B/P (MAP) Pulse Ox O2 Delivery O2 Flow Rate FiO2 03/07/17 11:37 100 35 03/07/17 08:39 100 45 03/07/17 08:00 55 03/07/17 07:00 97 Mechanical Ventilator 55 03/07/17 06:00 92 03/07/17 04:00 98.2 105 16 130/83 (99) 99 03/07/17 04:00 99 03/07/17 04:00 55 03/07/17 04:00 99 03/07/17 03:46 99 55 03/07/17 02:00 105 03/07/17 00:00 55 03/07/17 00:00 102 03/07/17 00:00 98.2 100 15 118/74 (89) 99 03/06/17 23:27 98 55 03/06/17 22:00 100 03/06/17 20:34 97 55 03/06/17 20:00 97 Mechanical Ventilator 55 03/06/17 20:00 55 03/06/17 20:00 107 03/06/17 20:00 98.0 107 16 108/69 (82) 97 03/06/17 18:00 106 03/06/17 16:00 98.2 110 17 114/77 (89) 96 03/06/17 16:00 110 03/06/17 16:00 40 03/06/17 15:50 96 40 03/06/17 14:00 115 -: 03/07/17 0540 03/07/17 0540 Physical Exam General Appearance: Pale Eyes Eye Exam: Pupils Equal Throat Throat Exam: Oral Mucosa [place] & Moist Neck Neck Exam: Neck Supple Pulmonary Resp Exam: Crackles, Rhonchi, Decreased Bases, Diminished Breath Sounds Cardiology CV Exam: Normal Sinus Rhythm, Tachycardia Gastrointestinal/Abdomen GI Exam: Non-Tender, Distended Extremeties Extremities Exam: Pitting Edema, Dependent Edema Assessment/Plan Problem List: (1) Acute renal failure ICD Codes: N17.9 - Acute kidney failure, unspecified Status: Acute Plan: Patient developed Hypotension,sepsis staph aureus respiratory failure and increase WBC. Had aspiration pneumonia, developed sepsis with ARF again creatinine declined slightly post hydration he also had retroperitoneal bleed Elevated intra abdominal pressures - improved now. 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 Has edema,increased UOP Ultrafiltration done 3.4 L removed and 3.5 L of UOP weight declined better K been replaced follow BMP (2) CKD (chronic kidney disease) stage 3, GFR 30-59 ml/min ICD Codes: N18.3 - Chronic kidney disease, stage 3 (moderate) Status: Chronic Plan: Ultrasound revealed chronic kidney disease there is no kidney stones (3) Diabetes ICD Codes: E11.9 - Type 2 diabetes mellitus without complications Plan: Continue to monitor (4) Distal end of ulna fracture, closed ICD Codes: S52.609A - Unspecified fracture of lower end of unspecified ulna, initial encounter for closed fracture Status: Acute Plan: Orthopedic is following Problem Qualifiers (1) Acute renal failure: Qualified Codes: N17.9 - Acute kidney failure, unspecified Laura Liao MD Mar 07, 2017 12:32
[2017-03-07] MEDS: SODIUM CHLOR 0.9% 1000 ML INJ 1,000 ML IV SCH (13:00)
[2017-03-07] MEDS: ATORVASTATIN 10 MG TAB PO SCH (20:15)
[2017-03-07] MEDS: LANSOPRAZOLE SOLUTAB 30 MG TAB NG SCH (20:15)
[2017-03-07] MEDS: INSULIN DETEMIR 100 UNITS/ML VIAL SQ SCH (20:15)
[2017-03-07] MEDS: ERTAPENEM INJ 1,000 MG in SODIUM CHLORIDE 0.9% INJ 100 ML IV SCH (21:06)
[2017-03-07 21:36] LABS: MAGNESIUM 1.5 MG/DL (1.5-2.5); POTASSIUM 3.4 MEQ/L (3.5-5.1)
[2017-03-08] VITALS (20 sets, daily range): BP systolic 94–121; BP diastolic 58–72; PULSE 100–140; RESP 6–18; TEMP 98.3–101; O2SAT 93–100
[2017-03-08] MEDS: RESP: ALBUTEROL 2.5 MG/IPRATROPIUM 0.5 MG NEB (SCH) NEB ×4 (00:49→19:51)
[2017-03-08] MEDS: oxyCODONE HCL ORAL CONC 5 MG/0.25 ML SYRINGE PO SCH ×5 (02:09→22:36)
[2017-03-08] MEDS: INSULIN NovoLIN REGULAR SUPPLEMENTAL SCALE SQ SCH ×5 (04:00→23:51)
[2017-03-08] MEDS: FREE WATER G-TUBE SCH ×5 (05:15→23:18)
[2017-03-08] MEDS: ARTIFICIAL TEARS OPTH SOLN 15 ML BTL EACH EYE SCH ×3 (05:15→22:37)
[2017-03-08] MEDS: METOCLOPRAMIDE HCL 10 MG/2 ML VIAL IV PUSH SCH ×3 (05:15→22:37)
[2017-03-08 05:49] LABS: HEMATOCRIT 29.6 % (39.0-51.0); MEAN CELL VOLUME 89.8 FL (80.0-100.0); MEAN CORPUSCULAR HEMOGLOBIN 29.9 PG (27.0-34.0); MEAN CORPUSCULAR HGB CONC 33.3 % (32.0-36.0); PLATELET COUNT 133 TH/MM3 (150-450); REVIEW FLAG FINAL; WHITE BLOOD COUNT 13.9 TH/MM3 (4.0-11.0)
[2017-03-08 06:14] LABS: BICARBONATE 24.4 MEQ/L (21.0-32.0); MAGNESIUM 1.4 MG/DL (1.5-2.5); POTASSIUM 3.4 MEQ/L (3.5-5.1)
--- NOTE | 2017-03-08 06:29 | RADRPT ---
EXAM DATE/TIME: 03/08/2017 05:41 [facility] COMPARISON: CHEST SINGLE AP, March 05, 2017, 5:03. INDICATIONS : Respiratory failure. MEDICAL HISTORY : Chronic obstructive pulmonary disease. Diabetes mellitus type II. SURGICAL HISTORY : Renal stents. ENCOUNTER: Subsequent ACUITY: 1 month PAIN SCORE: Non-responsive. LOCATION: Bilateral chest FINDINGS: The cardiac silhouette is enlarged in transverse diameter. There are findings of congestive heart isidro lure with interstitial and alveolar opacity bilaterally. There has been no significant change when co mpared to the prior exam. Support lines and tubes are in satisfactory position. CONCLUSION: 1. Cardiomegaly and findings of congestive heart failure. There has been no significant change when c ompared to the prior exam. Yung Fowler MD on March 08, 2017 at 6:27 Board Certified Radiologist. This report was verified electronically.
[2017-03-08] MEDS: SODIUM CHLORIDE 0.9% FLUSH 10 ML FLUSH IV FLUSH SCH ×3 (09:00→21:00)
[2017-03-08] MEDS: CHLORHEXIDINE 0.12% (ORAL KIT) 15 ML CUP MT SCH ×2 (10:07→20:21)
[2017-03-08] MEDS: HYDROCORTISONE SOD SUCCINATE 100 MG VIAL IV SCH (10:09)
[2017-03-08] MEDS: LANSOPRAZOLE SOLUTAB 30 MG TAB NG SCH ×2 (10:10→20:22)
[2017-03-08] MEDS: LACTOBACILLUS ACIDOPHILUS TAB PO SCH ×3 (10:10→18:00)
[2017-03-08] MEDS: INSULIN DETEMIR 100 UNITS/ML VIAL SQ SCH ×2 (10:11→20:48)
[2017-03-08] MEDS: fentaNYL DRIP 250 ML IV PRN ×2 (10:18→23:58)
[2017-03-08] MEDS: PROPOFOL 1000 MG/100 ML INJ 100 ML IV PRN (10:19)
--- NOTE | 2017-03-08 10:43 | HHI.CCPN ---
Subjective Remarks/Hospital Course Date of admission: 01/22 Date of critical care medicine consult 02/10 due to acute hypoxemic respiratory failure requiring emergent intubation 62-year-old male with a past medical history of hypertension, hyperlipidemia, diabetes mellitus, gout, uric acid kidney stones, kidney disease of unknown stage who originally presented to [facility] emergency department on 01/22 after a fall in which he sustained a right distal ulna fracture. He had been experiencing a gradual primarily lower extremity weakness as well as upper extremity weakness that was progressive. Neurology consult was obtained. MRI revealed no acute stroke. He had multifocal white matter changes. Tiny lacunar infarcts of the brainstem. Lumbar MRI report states L4-L5 disc protrusion with cetnral canal stenosis. Dr. Blackwell evaluated and states no cord compression on MRI C/T spine and recommended nonoperative management. Symptoms were felt to be consistent with transverse myelitis and he underwent Solumedrol 250 mg IV q6 hours 01/27-02/02. He also was found to have occlusive thrombus in the bilateral posterior tibial veins. Heparin was being avoided because he had traumatic lumbar puncture on 01/26 and 02/01. IVC filter was placed 01/25. He was undergoing physical therapy, reportedly making some improvements with plan to eventually discharged home with his son (max assist standing, and bed to chair per PT note). Apparently he had some vomiting the evening of 02/09 and additional vomiting on 02/10. He had a fever 102.8 on 02/09. Last recorded bowel movement was 02/03. Tonight he had acute onset of severe hypoxemia and respiratory distress. [facility] called and he was brought emergently to [facility] where his sats were 64% on 100% nonrebreather with mean arterial pressure 44. He was emergently intubated, CVL and art line placed. He is in septic shock. SUBJ: 02/11: Patient remains intubated sedated, critically ill. FiO2 reduced to 80% after increasing PEEP to 12. In severe septic shock Levophed at 16 mcg/m, vasopressin at 0.04 international units. D/W vascular surgery Dr. Enciso. He performed bedside Left upper extremity incision and debridement and excision of septic cephalic vein. 02/12: Remains intubated sedated profoundly septic, in shock on vasopressin and 7 mcg/min Levophed. FiO2 has improved to 45%, WBC count remains elevated with 20 ,000 white count significant left shift. Slight improvement in creatinine 2.9 urine output 750 ml 24 hours. 2-D echo shows LV ejection fraction 20-25%, no vegetation reported. Blood cultures 4 staph aureus. Wound culture pending 02/13: Remains critically ill but stable to improving. WBC count is down to 16, creatinine improving to 2.36. Off all pressors. Urine output also improving. 1.5L in 24 hours 02/14: Extubated 02/13. Tolerating well. WBC now down to 12.8. Creat improving 2.3 to 2. UO 3.4L. remains off all pressors. Was started on Precedex yesterday night for agitation, currently on 0.5 g per KG per hour. Chest x-ray shows left more than right air space disease 02/20/17 Re consult: 62-year-old male who was originally admitted for lower extremity weakness and found to have what was thought to be possible transverse myelitis. His hospital course his included a healthcare associated pneumonia, septic thrombophlebitis, DVT. He was most recently in the hospital floor where he had significant nausea and vomiting and diarrhea. His C. difficile test was recently negative. However, he has experienced worsening acute on chronic renal failure, hypotension, tachycardia, and severe hypoxemia. He did have a bout of vomiting earlier today, and his hospitalist attending suspects that he may have aspirated. He arrives by rapid response to the ICU with a nonrebreather in place in severe respiratory distress with SPO2 of 85%. I emergently intubate the patient, see separate procedure note for details. At this point the patient was hypotensive and tachycardic. He does have a history of an EF of 20%, however clinically he appears in florid septic shock. I placed central line and arterial line started vasopressors and gentle IV fluid resuscitation with 1 L of LR. Patient today was empirically broadened to vancomycin and Zosyn from his oxacillin which was initially treating MSSA bacteremia. He is recultured. Critical-care medicine is consulted to evaluate and manage his worsening multiorgan system failure and decompensated septic shock 02/21: Patient remains intubated sedated. Becomes anxious tachypnea on sedation lightening. Chest x-ray shows mild left lower lobe infiltrate. WBC count is slightly improved today from 23.2 t0 21. C Diff negative. UO adequate, creat slightly worsening. 1.57 today 02/22: Remains intubated sedated tolerated CPAP yesterday, plan is for EGD/ Colonscopy. WBC count back to normal. UO adequate. Creat stable 02/23: Tolerating CPAP trials following commands. Will do a spontaneous breathing trials. Status post EGD colonoscopy yesterday -Gastritis, esophagitis. Diverticulosis and multiple polyps. Urine output adequate but creatinine increasing to 1.7 with patient requiring multiple straight catheterization. We'll reinsert Sloan. 02/24: Breathing comfortably 24 hours after extubation. Protects airway well. 02/25: Excoriate bottom, will place rectal FMS. Start pureed diet. 02/26: Afebrile. Complaining of nausea and vomiting this afternoon. Increased stool output. Continue potassium replacement today. 02/27: 10 PM overnight, acutely hypotensive. Received 3 units PRBCs. Antibiotic coverage broadened to piperacillin/tazobactam, cortisol and 1 dose of vancomycin. Oxacillin drip currently on hold. Symptomatically, patient continues to vague abdominal pain/nausea vomiting which is unchanged for the past several days. Lipase elevated yesterday. Lactic acid normal. Troponin normal. Urinary retention after removal of Sloan. Straight catheter 1300. Cc 02/28: New diagnosis large retroperitoneal hematoma. Received 10 PRBC, 14 FFP, 2 platelets, 1 cryo-, 6 g calcium chloride, 2 is magnesium sulfate and 4 mg Bumex. CTA abdomen revealed possible arterial bleeds iliac, lumbar. Patient is currently on norepinephrine and epinephrine drips and possible need right nephrostomy tube placement due to large hematoma compressing ureter. Intra-abdominal bladder pressures are currently 13 03/01: Afebrile. Received 25 g albumin and 1 unit PRBCs overnight. Intra- abdominal bladder pressures currently 19. Currently on 3 micrograms per minute of norepinephrine. [id number] 1 out of 4 on 4 mics grams per kilogram per minute of cisatracurium. 03/02: Slightly hypothermic overnight. Hemoglobin appears to have stabilized. Troponin bump overnight likely secondary to demand ischemia from hypotension. Hemodynamically stable off all vasopressors. 03/03: Received 1 PRBCs overnight. 3 units currently. Off all vasopressors. Likely rebleeding. Stool is dark. 03/04: Remains unstable. Ventilator dependent. 03/05: afebrile. hgb stable. 03/06: bumex drip started overnight. good uop after bumex initiated. still grossly volume overloaded. Cr downtrending. more awake with transition to propofol. still too volume overloaded to tolerate extubation. hgb stable. 03/07: Afebrile. Tolerating tube feeds at goal with Nepro. Positive BM. On low-dose fentanyl and propofol drips. Potassium currently being replaced. Subjective 03/08: Eyes will open on ventilator. Afebrile. Tolerating tube feeding. Failed PSV trial yesterday due to apnea. Objective Vital Signs Date Time Temp Pulse Resp B/P (MAP) Pulse Ox O2 Delivery O2 Flow Rate FiO2 03/08/17 08:11 99 30 03/08/17 06:14 16 03/08/17 06:00 120 03/08/17 04:00 98.3 95/58 (70) 03/07/17 19:00 Mechanical Ventilator Intake and Output 03/08/17 03/08/17 03/09/17 08:00 16:00 00:00 Intake Total 1469 ml Output Total 610 ml Balance 859 ml Result Diagram: 03/08/17 0500 03/08/17 0500 Other Results Microbiology Date/Time Source Procedure Growth Status 02/27/17 03:48 Blood Peripheral Aerobic Blood Culture - Final NO GROWTH IN 5 DAYS Complete 02/27/17 03:48 Blood Peripheral Anaerobic Blood Culture - Final NO GROWTH IN 5 DAYS Complete 02/01/17 09:55 Cerebral Spinal Fluid Lumbar Puncture Fungal Smear - Final NO FUNGAL ELEMENTS SEEN. Complete 02/01/17 09:55 Cerebral Spinal Fluid Lumbar Puncture Fungal Culture - Final NO GROWTH IN 4 WEEKS Complete 02/17/17 05:55 Stool Stool Stool Occult Blood (GREGORY) - Final HEMOCCULT POSITIVE Complete 02/20/17 12:55 Sputum Endotracheal Gram Stain - Final Complete 02/20/17 12:55 Sputum Endotracheal Sputum Culture - Final HEAVY GROWTH NORMAL RESPIRATORY EARL Complete 02/27/17 08:32 Urine Catheterized Urine Urine Culture - Final Klebsiella Pneumoniae Esbl Pos Complete 02/11/17 09:10 Abscess Arm Acid Fast Stain - Final NO ACID FAST BACILLI SEEN Resulted 02/11/17 09:10 Abscess Arm Mycobacterial Culture - Preliminary NO GROWTH IN 3 WEEKS Resulted Imaging Last Impressions Chest X-Ray 03/08/17 0600 Signed Impressions: Service Date/Time: February 05:41 - CONCLUSION: 1. Cardiomegaly and findings of congestive heart failure. There has been no significant change when compared to the prior exam. Yung Fowler MD Aortography 02/28/17 0000 Signed Impressions: Service Date/Time: Tuesday, February 28, 2017 08:01 - CONCLUSION: 1. Active hemorrhage from distal right lateral sacral and iliolumbar branches successfully coil and Gelfoam embolized, as above. Juan Bhakta MD Abdomen/Pelvis CT 02/28/17 0000 Signed Impressions: Service Date/Time: Tuesday, February 28, 2017 06:51 - CONCLUSION: 1. The right retroperitoneal hematoma has increased in size, as above. There are 2 serpiginous arterially enhancing structures visualized, one in the right psoas muscle and another extending into the hematoma at the right iliac fossa. These could represent sites of continued active bleeding. 2. Stable moderate size left and small right pleural effusion with associated compressive atelectasis. 3. Stable small volume of free fluid in the abdomen and pelvis. There is also anasarca. The findings concerning the retroperitoneal hematoma were discussed with Dr. Aguiar via telephone at approximately 7: 10 AM on 02/28/2017. Angelo Allen MD Chest CT 02/27/17 0000 Signed Impressions: Service Date/Time: Monday, February 27, 2017 18:12 - CONCLUSION: 1. Bilateral pleural effusions with bibasilar atelectasis, left greater than right. Tom Sanchez MD Abdomen X-Ray 02/26/17 0000 Signed Impressions: Service Date/Time: Sunday, February 26, 2017 14:52 - CONCLUSION: 1. Nonobstructive bowel gas pattern. Juan Bhakta MD Upper Extremity Ultrasound 02/10/17 0000 Signed Impressions: Service Date/Time: Friday, February 10, 2017 18:46 - CONCLUSION: Occlusive thrombus in the cephalic and basilic veins. Benjamin Person MD Lung Scan-V Nuclear Medicine 02/10/17 0000 Signed Impressions: Service Date/Time: Friday, February 10, 2017 22:17 - CONCLUSION: Low probability pulmonary embolism. Candido Patton MD Head CT 9/23/17 0000 Signed Impressions: Service Date/Time: Friday, February 10, 2017 23:51 - CONCLUSION: Negative noncontrast CT brain. Candido Patton MD Wrist X-Ray 02/06/17 0000 Signed Impressions: Service Date/Time: Monday, February 06, 2017 12:50 - CONCLUSION: Minimally displaced distal radius and ulnar fractures. Armando Dodd MD Lumbar Puncture Fluoroscopy 02/01/17 Signed Impressions: Service Date/Time: January 09:35 - CONCLUSION: Uncomplicated fluoroscopically guided lumbar puncture. CSF was clear. Nabeel Peralta MD Head Magnetic Resonance Angiography 01/27/17 Signed Impressions: Service Date/Time: Friday, January 27, 2017 10:33 - CONCLUSION: No intracranial vascular abnormality is identified. There is no aneurysm visualized. Angelo Allen MD IVC Filter Placement X-Ray 01/25/17 Signed Impressions: Service Date/Time: January 10:29 - CONCLUSION: Uncomplicated inferior vena cava filter placement as above. Yung Fowler MD Thoracic Spine MRI 01/24/17 Signed Impressions: Service Date/Time: Tuesday, January 24, 2017 22:29 - CONCLUSION: 1. Mild degenerative spondylosis most prominently at T11-L1 with slight effacement of the anterior thecal sac and left lateral recess. No significant neural foraminal stenosis. 2. No acute fracture. Juan Bhakta MD Renal Ultrasound 01/23/17 Signed Impressions: Service Date/Time: Monday, January 23, 2017 08:53 - CONCLUSION: 1. Evidence of chronic parenchymal disease of both kidneys. No obstructive uropathy or other acute abnormality demonstrated. 2. Trace ascites, nonspecific. Angelo Garrido MD Lumbar Spine MRI 01/23/17 0000 Signed Impressions: Service Date/Time: Monday, January 23, 2017 17:01 - CONCLUSION: 1. At L4-5 is a broad-based disc protrusion with severe central canal and lateral recess stenosis and flattening of the exiting right L4 nerve root. 2. L5-S1 there is a disc protrusion and moderate stenosis with flattening of the exiting L5 nerve roots bilaterally. 3. At L3-4 there is a moderate to severe central stenosis and lateral recess stenosis with mild foraminal stenosis. 4. No acute fracture or spondylolisthesis. Trace Holloway MD Lower Extremity Ultrasound 01/23/17 Signed Impressions: Service Date/Time: Monday, January 23, 2017 09:53 - CONCLUSION: Bilateral focal lower extremity DVT involving the posterior tibial veins. Angelo Garrido MD Cervical Spine MRI 01/23/17 Signed Impressions: Service Date/Time: Monday, January 23, 2017 17:01 - CONCLUSION: 1. Multilevel cervical spine degenerative changes as above. 2. Mild degrees of spinal stenosis at C3/C4-C6/C7. No cord compression or cord signal abnormality. 3. Age indeterminate left paracentral/foraminal disc protrusion at C6/C7. 4. Multilevel foraminal stenosis, most severe on the left at C6/C7. Please see individual levels above. 5. No fracture or subluxation of the cervical spine. Angelo Garrido MD Brain MRI 01/23/17 Signed Impressions: Service Date/Time: Monday, January 23, 2017 17:01 - CONCLUSION: 1. No acute stroke or other acute intracranial abnormality demonstrated. 2. Moderate severity chronic white matter changes, nonspecific but most likely related to chronic small vessel disease. 3. Few scattered tiny lacunar infarcts of the brainstem. 4. Given the findings are not entirely specific, clinical evaluation for possible multiple sclerosis recommended. Angelo Garrido MD Knee X-Ray [id number]/22/[id number] Signed Impressions: Service Date/Time: Sunday, January 22, 2017 21:17 - CONCLUSION: 1. Evidence of moderate to large joint effusion. 2. No acute fracture or malalignment. 3. Mild 3 compartment osteoarthritic change. Benjamin Person MD Hip and Pelvis X-Ray [id number]/22/[id number] Signed Impressions: Service Date/Time: Sunday, January 22, 2017 21:10 - CONCLUSION: 1. Mild to moderate degenerative change of both hips with no acute fracture or malalignment. There is flattening and remodeling of the right humeral head. Benjamin Person MD Objective Remarks GENERAL: 62-year-old male, critically ill currently orotracheally intubated HEENT: Normocephalic. Atraumatic. Pupils equal, round, reactive, conjugate by 3 mm bilaterally. NECK: Trachea is midline. Obese. No JVD or thyromegaly right IJ TLC, left IJ hemodialysis catheter clean dry and intact CHEST: Diminished breath sounds. equal chest rise. CARDIOVASCULAR: RRR. S1, S2. No S4 without murmur ABDOMEN: Distended. Firm to palpation. Umbilical hernia is reducible. MUSCULOSKELETAL: Pulses 2+. 1+ bilateral upper and lower extremity edema. Wound VAC on left upper extremity NEUROLOGICAL: Cranial nerves II through XII grossly intact. Moves upper extremity bilaterally spontaneously to command. Withdrawals bilateral lower extremities. Procedures IVC filter placement 01/25/2017 LP 01/26/2017 Line: Central Venous Catheter Side: Right Location: Internal, Jugular A/P Problem List: (1) Septic shock ICD Code: A41.9 - Sepsis, unspecified organism; R65.21 - Severe sepsis with septic shock Status: Acute (2) Acute respiratory failure ICD Code: J96.00 - Acute respiratory failure, unspecified whether with hypoxia or hypercapnia Status: Acute (3) Thrombophlebitis arm ICD Code: I80.8 - Phlebitis and thrombophlebitis of other sites (4) Aspiration pneumonia ICD Code: J69.0 - Pneumonitis due to inhalation of food and vomit Status: Acute (5) Atelectasis of left lung ICD Code: J98.11 - Atelectasis Status: Acute (6) Quadriparesis ICD Code: G82.50 - Quadriplegia, unspecified Status: Acute (7) DVT (deep venous thrombosis) ICD Code: I82.409 - Acute embolism and thrombosis of unspecified deep veins of unspecified lower extremity (8) Altered mental status ICD Code: R41.82 - Altered mental status, unspecified Status: Acute (9) CKD (chronic kidney disease) stage 3, GFR 30-59 ml/min ICD Code: N18.3 - Chronic kidney disease, stage 3 (moderate) Status: Chronic (10) Acute renal failure ICD Code: N17.9 - Acute kidney failure, unspecified Status: Acute (11) Diabetes mellitus ICD Code: E11.9 - Type 2 diabetes mellitus without complications Status: Chronic (12) Distal end of ulna fracture, closed ICD Code: S52.609A - Unspecified fracture of lower end of unspecified ulna, initial encounter for closed fracture Status: Acute (13) Gout ICD Code: M10.9 - Gout, unspecified Status: Chronic Assessment and Plan NEURO/PSYCH: Acute metabolic encephalopathy- persistent Quadriparesis secondary to suspected transverse myelitis Recurrent falls Pain secondary to retroperitoneal hematoma. Patient is currently on propofol at 40 mcg/kg minutes/fentanyl drip at 125 mcg an hour for sedation/analgesia while intubated Goal of RA SS -2 Suspected transverse myelitis. Received methylprednisolone 250 mg IV every 6 hours 01/27-02/02, started back on hydrocortisone 02/21/17, initially tapering to 50 mg IV every 8 hours starting received 1 dose at 2100 prior to becoming hypotensive. weaning hydrocortisone taper and will discontinue 03/09 LP 01/26 and 02/01. CSF culture negative 01/26, 02/01 Oligoclonal bands negative. CSF/serum IgG index is not elevated. VDRL nonreactive. Cryptococcal antigen negative. Brain MRI 01/23 no acute stroke. Few scattered lacunar infarcts of the brainstem. Moderate chronic white matter changes. MRI cervical/thoracic spine- mild spinal stenosis C3/C4 to C6/C7. No cord compression. RPR negative Neurology has been following, Dr. Crenshaw. Repeat CT brain 02/10 - negative Continue PT/OT RESP: Acute hypoxemic respiratory failure Healthcare associated pneumonia/Aspiration Pneumonia Right-sided [facility] effusion[facility] Ventilator bundle Albuterol/ipratropium aerosols every 6 hours with albuterol aerosols every 2 hours prn VQ scan 02/10 low probability for PE. CT chest 02/10 - left lower lobe collapse and consolidation. CT chest 02/27 revealed right greater than left pleural effusions. Extubated 02/23. 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 unable to wean successfully due to volume overload and multiple organ failure. will attempt volume removal today in an attempt to assist with weaning from mechanical ventilation. if no improvements soon, will need to consider tracheostomy. CV: Severe sepsis - resolved. Systolic heart failure likely chronic with ejection fraction 20-25% Hyperlipidemia History of hypertension Mild TR Elevated troponin likely type II demand ischemia Currently off all vasopressors Holding metoprolol and amlodipine in light of recent hypotension. atorvastatin 10 mg by mouth daily for dyslipidemia. Troponin 0.[address]-T changes. Patient denying chest discomfort. 2-D echocardiogram 01/11 revealed EF 20-25%. Mild TR. Pulmonary arterial pressures were normal around 20 Troponin 6.55 on 03/02 and trending downward. Likely will need stress test of heart once stable. Cannot anticoagulate due to retroperitoneal hematoma the present time GI: Large right retroperitoneal hematoma Erosive esophagitis Adematous/hyperplastic colon polyps Severe acute protein calorie malnutrition Nausea/vomiting - resolved. Diarrhea Gastritis Diverticulosis Internal and external hemorrhoids Hiatal hernia Elevated lipase Hypernatremia Hypokalemia 02/27 CT chest/abdomen and pelvis - 9.4 x 7.5 renal and 16 x 12 cm right psoas muscle hematoma. Fluid around liver and spleen. Right-sided nephrolithiasis CTA abdomen 02/28 - possible blushing around iliac/lumbar vessels Discussed with IR. s/p attempted embolization CT abdomen and pelvis 02/10 atrophic left kidney. Bilateral inguinal hernias fat- containing. Nonobstructing 12 mm right kidney stone repeat CT abd/pelvis did not show evidence of obstruction. patient clinically has been having diarrhea (c. diff negative 02/19). also with nausea/vomiting of unclear etiology. EGD/Colonoscopy-02/22/17 showed gastritis esophagitis, hiatal hernia, diverticulosis and multiple polyps in descending colon and sigmoid which were snared biopsied. Biopsy pending Dr. Lewis consulted for intervention if needed for elevated IAP. will continue to check as needed Continue on tube feeds with Nepro 40 cc an hour today. Lansoprazole for GI prophylaxis FEN/RENAL: Acute kidney injury in the setting of Chronic kidney disease stage 3-4 History of uric acid kidney stones with prior stent BPH Nonfunctioning left kidney Acute intravascular volume overload Hypokalemia Hypo-magnesium Sloan placed due to urinary retention and worsening creatinine. Monitor intake and output q1hr. Monitor electrolytes. RIOS/SPEP negative. 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 Recommended nephrostomy tube if obstruction Nephrology consulted may need ultrafiltration again today for volume removal. Due to acute illness holding tamsulosin 0.4 mg by mouth daily for BPH Free water 200 mL q4h for hypernatremia ICU electrolyte replacement protocol daily BMP 40 mEq KCl today. 2 g mag sulfate. Recheck in a.m. ID: Septic shock- resolved. Abscess and Suppurative thrombophlebitis left upper extremity MSSA bacteremia Klebsiella UTI ESBL positive Acute aspiration pneumonia/HCAP Broad-spectrum antibiotics with oxacillin 2 g IV every 4 hours till March 26 initially. This is been held in light of current change to regimen to fluconazole, ertapenem and vancomycin intermittently dosed per ID Blood cultures 2, UA ESBL positive Klebsiella UTI ID on board. HEME: Acute blood loss anemia DVT, bilateral posterior tibial vein, IVC filter Septic thrombophlebitis with occlusive thrombus mid cephalic and basilic vein side Received 10 PRBC, 14 FFP, 2 platelets, 1 cryo-02/28 Past 24 hours received 3 units PRBCs Serial hemoglobins every 6 hours Recheck coags Ultrasound 01/23/17 - Bilateral lower extremity with occlusive posterior tibial vein DVTs. Heparin was initially started for DVT but was placed on hold due to LP with suspected traumatic tap. Currently holding full anticoagulation with enoxaparin 100 mg IV twice a day due to anemia as of 02/26 IVC filter was placed 01/25/17. Ultrasound LUE 02/10 occlusive thrombus mid cephalic vein, basilic vein.s. Transfuse 3 units PRBCs 02/27 Transfuse 2 units PRBCs 03/01. ENDO: Diabetes mellitus Hypoglycemia History of prior adrenal insufficiency with shock Gout EGD colonoscopy completed 02/22. gastritis and esophagitis, colon polyps Started Hydrocortisone 100 mg every 8 hours 02/21/17 (Recent high dose steroids use now hypotensive, hypoglycemic), start steroid taper. Currently at 50 twice a day Accu-Cheks to maintain euglycemia Novulin R every 4 hours. Insulin detemir 5 units twice a day. No slight scale past 24 hours MSK: Right distal ulna fracture. Dr. Nathan with orthopedics has evaluated and recommended nonoperative management. Right wrist splint in place. PROPH: Lansoprazole 30 mg twice a day twice a day for stress ulcer prophylaxis. Has IVC filter. Therapeutic enoxaparin currently on hold ACCESS: right IJ CVL placed 03/03. A left IJ hemodialysis catheter placed 03/01. Problem Qualifiers (1) Aspiration pneumonia: (2) DVT (deep venous thrombosis): Qualified Codes: I82.443 - Acute embolism and thrombosis of tibial vein, bilateral (3) Acute renal failure: Qualified Codes: N17.9 - Acute kidney failure, unspecified (4) Diabetes mellitus: (5) Gout: Janes Aguiar MD Mar 08, 2017 10:43
[2017-03-08] MEDS ORDERED: MAGNESIUM SULFATE 1 GM PREMIX 100 ML IV SCH (11:00)
[2017-03-08] MEDS ORDERED: POTASSIUM CHLORIDE 20 MEQ PWD PACKET PO ONE (11:00)
[2017-03-08] MEDS: SODIUM CHLOR 0.9% 1000 ML INJ 1,000 ML IV SCH (13:00)
--- NOTE | 2017-03-08 15:10 | HHI.NPPN ---
Subjective History of Present Illness 61-year-old with history of urinary stone Additional Remarks Patient remain intubated open eyes Review of Systems General Constitutional: Fatigue Objective Data Data Vital Signs Date Time Temp Pulse Resp B/P (MAP) Pulse Ox O2 Delivery O2 Flow Rate FiO2 03/08/17 14:48 97 35 03/08/17 14:00 126 03/08/17 12:27 95 35 03/08/17 12:00 130 03/08/17 12:00 101.0 130 6 102/71 (81) 93 03/08/17 12:00 35 03/08/17 10:51 35 03/08/17 10:51 100 35 03/08/17 10:00 140 03/08/17 08:11 99 30 03/08/17 08:00 101.0 120 16 98/67 (77) 100 03/08/17 08:00 120 03/08/17 08:00 30 03/08/17 07:00 97 Mechanical Ventilator 30 03/08/17 06:14 16 03/08/17 06:00 120 03/08/17 04:00 122 03/08/17 04:00 98.3 122 18 95/58 (70) 98 03/08/17 04:00 30 03/08/17 03:59 98 30 03/08/17 02:00 126 03/08/17 00:49 100 30 03/08/17 00:00 120 03/08/17 00:00 30 03/08/17 00:00 98.9 120 16 102/63 (76) 98 03/07/17 22:00 112 03/07/17 20:06 95 35 03/07/17 20:00 99.3 108 16 95/54 (68) 95 03/07/17 20:00 35 03/07/17 20:00 108 03/07/17 19:00 93 Mechanical Ventilator 35 03/07/17 16:25 94 35 03/07/17 16:00 98.5 112 16 105/64 (78) 95 03/07/17 16:00 55 -: 03/08/17 0500 03/08/17 0500 Physical Exam General Appearance: Pale Eyes Eye Exam: Pupils Equal Throat Throat Exam: Oral Mucosa [place] & Moist Neck Neck Exam: Neck Supple Pulmonary Resp Exam: Crackles, Rhonchi, Decreased Bases, Diminished Breath Sounds Cardiology CV Exam: Normal Sinus Rhythm, Tachycardia Gastrointestinal/Abdomen GI Exam: Non-Tender, Distended Extremeties Extremities Exam: Pitting Edema, Dependent Edema Assessment/Plan Problem List: (1) Acute renal failure ICD Codes: N17.9 - Acute kidney failure, unspecified Status: Acute Plan: Patient developed Hypotension,sepsis staph aureus respiratory failure and increase WBC. Had aspiration pneumonia, developed sepsis with ARF again creatinine declined slightly post hydration he also had retroperitoneal bleed Elevated intra abdominal pressures - improved now. 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 Has edema,increased UOP Ultrafiltration to be done again UOP 1.8 L off Bumex gtt K/Mg replaced remains edematous/anasarca weight declined better K been replaced follow BMP (2) CKD (chronic kidney disease) stage 3, GFR 30-59 ml/min ICD Codes: N18.3 - Chronic kidney disease, stage 3 (moderate) Status: Chronic Plan: Ultrasound revealed chronic kidney disease there is no kidney stones (3) Diabetes ICD Codes: E11.9 - Type 2 diabetes mellitus without complications Plan: Continue to monitor (4) Distal end of ulna fracture, closed ICD Codes: S52.609A - Unspecified fracture of lower end of unspecified ulna, initial encounter for closed fracture Status: Acute Plan: Orthopedic is following Problem Qualifiers (1) Acute renal failure: Qualified Codes: N17.9 - Acute kidney failure, unspecified Laura Liao MD Mar 08, 2017 15:10
--- NOTE | 2017-03-08 16:23 | HHI.IDPN ---
Subjective Subjective Remarks Patient is a 62-year-old male, admitted to the hospital for evaluation of pain in his right wrist. He gave a history of falling about a week ago and apparently had immediate pain in the right wrist. He did not seek any medical attention initially because reportedly he was very busy. He eventually presented, and he was found to have a distal ulnar fracture on plain films. He also had some redness and swelling. Orthopedics saw the patient, and was being treated conservatively with the splint. During this hospitalization also he started complaining of generalized weakness but more so in his lower extremity than his upper extremity. He had swelling in both lower extremity which revealed evidence of DVT in the posterior tibial veins. Neurology had seen the patient and he underwent lumbar puncture which apparently was traumatic. Patient was therefore not given anticoagulation because of the traumatic LP, and he underwent placement of an IVC filter on January 25. Patient had another lumbar puncture on February 01. He was felt to have transverse myelitis, and he was given high-dose IV Solu-Medrol from January 27 to February 02. There was apparently some improvement in his weakness. The imaging studies done for his weakness showed some spinal stenosis, and neurosurgery was consult that and recommended that there was no surgical intervention to be done. Patient has been stabilizing, but last night apparently deteriorated, and he ended up getting intubated, and had significant hypotension requiring pressors. There was also an ultrasound done of his left upper extremity which showed DVT, and there was evidence of superior 2 thrombophlebitis. Vascular surgery was consult to it and he had IND on his left upper extremity. Patient has had some fevers since yesterday. 2 blood cultures were done yesterday and they're now reported as growing gram-positive cocci in [place] in clusters. He is currently sedated and intubated. He is on Levophed and vasopressin. A central line was placed as well as a femoral a line. He apparently had an IV in his left upper extremity and that was removed yesterday. Patient also has history of chronic kidney disease, and nephrology evaluated the patient. He was just being monitored for his renal insufficiency. Infectious disease consultation has been requested to evaluate the patient. Notes reviewed Febrile today Not tolerating weaning BP ok Antibiotics I attest that I obtained, updated or reviewed the home and current medications. Antibiotics - Invanz Current Medications Medications (Trade) Dose Ordered Sig/Rosalia Route Start Time Stop Time Status Last Admin (NS Flush) 2 ml UNSCH PRN IV FLUSH 01/23/17 00:30 02/01/17 05:07 (NS Flush) 2 ml BID IV FLUSH 01/23/17 09:00 03/07/17 20:16 (Tylenol) 650 mg Q4H PRN PO 01/23/17 00:30 02/14/17 20:50 (Zofran Inj) 4 mg Q6H PRN IVP 01/23/17 00:30 02/26/17 17:23 (Narcan Inj) 0.4 mg UNSCH PRN IV 01/23/17 00:30 (Edna-Colace) 1 tab BID PO 01/23/17 09:00 Future Hold 02/24/17 20:31 (Dulcolax Supp) 10 mg DAILY PRN RECTAL 01/23/17 00:30 (Lipitor) 10 mg HS PO 01/24/17 21:00 Future hold 03/07/17 20:15 (Glucagon Inj) 1 mg UNSCH PRN OTHER 02/11/17 05:45 02/18/17 18:53 (Flomax) 0.4 mg Q12HR PO 02/17/17 15:00 Future Hold 02/26/17 08:49 (Lovenox Inj) 100 mg Q12H SQ 02/18/17 12:00 Future Hold 02/26/17 16:20 (Lactinex) 1 tab TID PO 02/19/17 13:00 03/08/17 14:14 (Apresoline Inj) 10 mg Q30M PRN IV PUSH 02/20/17 11:45 03/06/17 08:45 (D50w (Vial) Inj) 25 ml UNSCH PRN IV PUSH 02/20/17 12:45 Sodium Chloride 1,000 ml @ 20 mls/hr Q24H IV 02/22/17 13:00 03/08/17 13:00 Oxacillin Sodium 2 gm/Sodium Chloride 100 ml @ 200 mls/hr Q4H IV 02/23/17 12:00 Future Hold 02/27/17 04:25 (Questran Light Pkt) 4 gm Q12HR PO 02/25/17 21:00 Future Hold 02/27/17 10:32 (Aldactone) 25 mg DAILY PO 02/27/17 09:00 Future Hold (Reglan Inj) 5 mg Q8HR IV PUSH 02/26/17 22:00 03/08/17 14:14 (Brethine Inj) 1 mg UNSCH PRN SQ 02/27/17 16:30 (Peridex 0.12% Liq) 15 ml BID@08,20 MT 02/28/17 08:00 03/08/17 10:07 Fentanyl Citrate 250 ml @ 5 mls/hr TITRATE PRN IV 02/28/17 08:00 03/08/17 10:18 (Albuterol Neb) 2.5 mg Q2HR NEB PRN NEB 02/28/17 07:45 (NovoLIN R SUPPLEMENTAL SCALE) 1 Q4HR SQ 02/28/17 08:00 03/08/17 12:00 (Tears Naturale Opth Soln) 1 drop Q8HR EACH EYE 02/28/17 14:00 03/08/17 14:15 Sodium Chloride 1,000 ml @ 0 mls/hr Q0M PRN OTHER 03/01/17 11:19 03/02/17 13:00 Sodium Chloride 1,000 ml @ 200 mls/hr Q5H PRN IV 03/01/17 11:19 Sodium Chloride 1,000 ml @ 0 mls/hr Q0M PRN OTHER 03/01/17 11:19 (Mannitol Inj) 12.5 gm UNSCH PRN IV 03/01/17 11:30 03/02/17 13:00 Albumin Human 100 ml @ 60 mls/hr UNSCH PRN IV 03/01/17 11:30 03/02/17 13:00 (NS Flush) 5 ml UNSCH PRN IV FLUSH 03/01/17 11:30 (Heparin Inj) UNSCH PRN .XX 03/01/17 11:30 03/02/17 13:00 (Gentamicin (Dialysis) Inj) 20 mg UNSCH PRN OTHER 03/01/17 11:30 03/02/17 13:00 (Tylenol) 650 mg UNSCH PRN PO 03/01/17 11:30 (Nitrostat Sl) 0.4 mg UNSCH PRN SL 03/01/17 11:30 (Gelfoam 12 Mm/7 Mm Top) 1 foam UNSCH PRN TOP 03/01/17 11:30 (NS Flush) UNSCH PRN IV FLUSH 03/01/17 13:00 (Heparin Inj) UNSCH PRN IV FLUSH 03/01/17 13:00 Ertapenem 1000 mg/ Sodium Chloride 100 ml @ 200 mls/hr Q24H IV 03/01/17 20:00 03/07/17 21:06 (NS Flush) DAILY IV FLUSH 03/04/17 09:00 (NS Flush) UNSCH PRN IV FLUSH 03/03/17 18:45 Propofol 100 ml @ 3.894 mls/ hr TITRATE PRN IV 03/05/17 07:45 03/08/17 10:19 (Mag-Ox) 800 mg UNSCH PRN PO 03/05/17 07:45 03/07/17 14:00 Magnesium Sulfate 4 gm/Sodium Chloride 100 ml @ 50 mls/hr UNSCH PRN IV 03/05/17 07:45 Magnesium Sulfate 2 gm/Sodium Chloride 100 ml @ 50 mls/hr UNSCH PRN IV 03/05/17 07:45 03/08/17 14:29 Potassium Chloride 100 ml @ 50 mls/hr Q2H PRN IV 03/05/17 07:45 03/07/17 08:01 Potassium Chloride 100 ml @ 50 mls/hr Q2H PRN IV 03/05/17 07:45 Potassium Chloride 100 ml @ 50 mls/hr Q2H PRN IV 03/05/17 07:45 Potassium Chloride 100 ml @ 25 mls/hr UNSCH PRN IV 03/05/17 07:45 (K-Phos) 2,000 mg Q4H PRN PO 03/05/17 07:45 (K-Phos) 2,000 mg UNSCH PRN PO/TUBE 03/05/17 07:45 Potassium Phosphate 30 mmol/ Sodium Chloride 260 ml @ 42 mls/hr UNSCH PRN IV 03/05/17 07:45 Sodium Phosphate 30 mmol/Sodium Chloride 250 ml @ 42 mls/hr UNSCH PRN IV 03/05/17 07:45 (Roxicodone Intensol Liq) 10 mg Q4H PO 03/05/17 14:00 03/08/17 10:11 (Free Water) VOLUME OF WATER: ( 200 ) ML Q4HR G-TUBE 03/06/17 12:00 03/08/17 12:00 (Duoneb Neb) 1 ampule Q6HR NEB NEB 03/07/17 10:00 03/08/17 14:47 (SoluCORTEF INJ) 50 mg Taper DAILY IV 03/08/17 09:00 03/12/17 08:59 03/08/17 10:09 (Levemir Inj) 5 units BID SQ 03/07/17 21:00 03/08/17 10:11 (Prevacid Odt) 30 mg BID NG 03/07/17 21:00 03/08/17 10:10 Vancomycin HCl 1000 mg/Sodium Chloride 250 ml @ 250 mls/hr ONCE ONCE IV 03/08/17 16:15 03/08/17 17:14 UNV Phenylephrine HCl 160 mg/Dextrose 500 ml @ 7.5 mls/hr TITRATE PRN IV 03/08/17 17:15 UNV (Brethine Inj) 1 mg UNSCH PRN SQ 03/08/17 17:15 UNV Lines TLC Vascath Past Medical History Reviewed Allergies: Coded Allergies: levofloxacin (Verified Allergy, Severe, 01/22/17) Objective . Vital Signs Date Time Temp Pulse Resp B/P (MAP) Pulse Ox O2 Delivery O2 Flow Rate FiO2 03/08/17 14:48 97 35 03/08/17 14:00 126 03/08/17 12:27 95 35 03/08/17 12:00 130 03/08/17 12:00 101.0 130 6 102/71 (81) 93 03/08/17 12:00 35 03/08/17 10:51 35 03/08/17 10:51 100 35 03/08/17 10:00 140 03/08/17 08:11 99 30 03/08/17 08:00 101.0 120 16 98/67 (77) 100 03/08/17 08:00 120 03/08/17 08:00 30 03/08/17 07:00 97 Mechanical Ventilator 30 03/08/17 06:14 16 03/08/17 06:00 120 03/08/17 04:00 122 03/08/17 04:00 98.3 122 18 95/58 (70) 98 03/08/17 04:00 30 03/08/17 03:59 98 30 03/08/17 02:00 126 03/08/17 00:49 100 30 03/08/17 00:00 120 03/08/17 00:00 30 03/08/17 00:00 98.9 120 16 102/63 (76) 98 03/07/17 22:00 112 03/07/17 20:06 95 35 03/07/17 20:00 99.3 108 16 95/54 (68) 95 03/07/17 20:00 35 03/07/17 20:00 108 03/07/17 19:00 93 Mechanical Ventilator 35 03/07/17 16:25 94 35 . Laboratory Tests Test 03/07/17 05:40 03/08/17 05:00 White Blood Count 10.2 TH/MM3 13.9 TH/MM3 Red Blood Count 3.15 MIL/MM3 3.30 MIL/MM3 Hemoglobin 9.6 GM/DL 9.9 GM/DL Hematocrit 28.2 % 29.6 % Mean Corpuscular Volume 89.3 FL 89.8 FL Mean Corpuscular Hemoglobin 30.4 PG 29.9 PG Mean Corpuscular Hemoglobin Concent 34.0 % 33.3 % Red Cell Distribution Width 15.5 % 16.0 % Platelet Count 135 TH/MM3 133 TH/MM3 Mean Platelet Volume 8.3 FL 8.3 FL Laboratory Tests Test 03/07/17 05:40 03/07/17 20:00 03/08/17 05:00 Blood Urea Nitrogen 46 MG/DL 49 MG/DL Creatinine 1.63 MG/DL 1.50 MG/DL Random Glucose 163 MG/DL 115 MG/DL Calcium Level 7.7 MG/DL 7.7 MG/DL Sodium Level 148 MEQ/L 146 MEQ/L Potassium Level 2.7 MEQ/L 3.4 MEQ/L 3.4 MEQ/L Chloride Level 115 MEQ/L 113 MEQ/L Carbon Dioxide Level 24.8 MEQ/L 24.4 MEQ/L Anion Gap 8 MEQ/L 9 MEQ/L Estimat Glomerular Filtration Rate 43 ML/MIN 47 ML/MIN Phosphorus Level 2.6 MG/DL 2.5 MG/DL Magnesium Level 1.6 MG/DL 1.5 MG/DL 1.4 MG/DL Imaging Chest X-Ray 03/02/17 0600 Signed Impressions: Service Date/Time: Thursday, March 02, 2017 01:56 - CONCLUSION: 1. Supine apparatus in good position. Bilateral space disease, left greater than right. Left-sided pleural effusion similar to prior exam. Trace Holloway MD Aortography 02/28/17 0000 Signed Impressions: Service Date/Time: Tuesday, February 28, 2017 08:01 - CONCLUSION: 1. Active hemorrhage from distal right lateral sacral and iliolumbar branches successfully coil and Gelfoam embolized, as above. Juan Bhakta MD Abdomen/Pelvis CT 02/28/17 0000 Signed Impressions: Service Date/Time: Tuesday, February 28, 2017 06:51 - CONCLUSION: 1. The right retroperitoneal hematoma has increased in size, as above. There are 2 serpiginous arterially enhancing structures visualized, one in the right psoas muscle and another extending into the hematoma at the right iliac fossa. These could represent sites of continued active bleeding. 2. Stable moderate size left and small right pleural effusion with associated compressive atelectasis. 3. Stable small volume of free fluid in the abdomen and pelvis. There is also anasarca. The findings concerning the retroperitoneal hematoma were discussed with Dr. Aguiar via telephone at approximately 7: 10 AM on 02/28/2017. Angelo Allen MD Chest CT 02/27/17 0000 Signed Impressions: Service Date/Time: Monday, February 27, 2017 18:12 - CONCLUSION: 1. Bilateral pleural effusions with bibasilar atelectasis, left greater than right. Tom Sanchez MD Abdomen X-Ray 02/26/17 Signed Impressions: Service Date/Time: Sunday, February 26, 2017 14:52 - CONCLUSION: 1. Nonobstructive bowel gas pattern. Juan Bhakta MD Upper Extremity Ultrasound 02/10/17 0000 Signed Impressions: Service Date/Time: Friday, February 10, 2017 18:46 - CONCLUSION: Occlusive thrombus in the cephalic and basilic veins. Benjamin Person MD Lung Scan- Nuclear Medicine 02/10/17 0000 Signed Impressions: Service Date/Time: Friday, February 10, 2017 22:17 - CONCLUSION: Low probability pulmonary embolism. Candido Patton MD Head CT 02/10/17 0000 Signed Impressions: Service Date/Time: Friday, February 10, 2017 23:51 - CONCLUSION: Negative noncontrast CT brain. Candido Patton MD Wrist X-Ray 02/06/17 Signed Impressions: Service Date/Time: Monday, February 06, 2017 12:50 - CONCLUSION: Minimally displaced distal radius and ulnar fractures. Armando Dodd MD Lumbar Puncture Fluoroscopy 02/01/17 0000 Signed Impressions: Service Date/Time: January 09:35 - CONCLUSION: Uncomplicated fluoroscopically guided lumbar puncture. CSF was clear. Nabeel Peralta MD Head Magnetic Resonance Angiography 01/27/17 Signed Impressions: Service Date/Time: Friday, January 27, 2017 10:33 - CONCLUSION: No intracranial vascular abnormality is identified. There is no aneurysm visualized. Angelo Allen MD IVC Filter Placement X-Ray 01/25/17 Signed Impressions: Service Date/Time: January 10:29 - CONCLUSION: Uncomplicated inferior vena cava filter placement as above. Yung Fowler MD Thoracic Spine MRI 01/24/17 Signed Impressions: Service Date/Time: Tuesday, January 24, 2017 22:29 - CONCLUSION: 1. Mild degenerative spondylosis most prominently at T11-L1 with slight effacement of the anterior thecal sac and left lateral recess. No significant neural foraminal stenosis. 2. No acute fracture. Juan Bhakta MD Renal Ultrasound 01/23/17 Signed Impressions: Service Date/Time: Monday, January 23, 2017 08:53 - CONCLUSION: 1. Evidence of chronic parenchymal disease of both kidneys. No obstructive uropathy or other acute abnormality demonstrated. 2. Trace ascites, nonspecific. Angelo Garrido MD Lumbar Spine MRI 01/23/17 Signed Impressions: Service Date/Time: Monday, January 23, 2017 17:01 - CONCLUSION: 1. At L4-5 is a broad-based disc protrusion with severe central canal and lateral recess stenosis and flattening of the exiting right L4 nerve root. 2. L5-S1 there is a disc protrusion and moderate stenosis with flattening of the exiting L5 nerve roots bilaterally. 3. At L3-4 there is a moderate to severe central stenosis and lateral recess stenosis with mild foraminal stenosis. 4. No acute fracture or spondylolisthesis. Trace Holloway MD Lower Extremity Ultrasound 01/23/17 Signed Impressions: Service Date/Time: Monday, January 23, 2017 09:53 - CONCLUSION: Bilateral focal lower extremity DVT involving the posterior tibial veins. Angelo Garrido MD Cervical Spine MRI 01/23/17 Signed Impressions: Service Date/Time: Monday, January 23, 2017 17:01 - CONCLUSION: 1. Multilevel cervical spine degenerative changes as above. 2. Mild degrees of spinal stenosis at C3/C4-C6/C7. No cord compression or cord signal abnormality. 3. Age indeterminate left paracentral/foraminal disc protrusion at C6/C7. 4. Multilevel foraminal stenosis, most severe on the left at C6/C7. Please see individual levels above. 5. No fracture or subluxation of the cervical spine. Angelo Garrido MD Brain MRI 01/23/17 Signed Impressions: Service Date/Time: Monday, January 23, 2017 17:01 - CONCLUSION: 1. No acute stroke or other acute intracranial abnormality demonstrated. 2. Moderate severity chronic white matter changes, nonspecific but most likely related to chronic small vessel disease. 3. Few scattered tiny lacunar infarcts of the brainstem. 4. Given the findings are not entirely specific, clinical evaluation for possible multiple sclerosis recommended. Angelo Garrido MD Knee X-Ray 01/22/172053 Signed Impressions: Service Date/Time: Sunday, January 22, 2017 21:17 - CONCLUSION: 1. Evidence of moderate to large joint effusion. 2. No acute fracture or malalignment. 3. Mild 3 compartment osteoarthritic change. Benjamin Person MD Hip and Pelvis X-Ray [id number]/22/[id number] Signed Impressions: Service Date/Time: Sunday, January 22, 2017 21:10 - CONCLUSION: 1. Mild to moderate degenerative change of both hips with no acute fracture or malalignment. There is flattening and remodeling of the right humeral head. Benjamin Person MD Chest X-Ray 02/24/17 0600 Signed Impressions: Service Date/Time: Friday, February 24, 2017 03:58 - CONCLUSION: 1. Unchanged left lower lobe infiltrate with small effusion. Candido Mendoza Jr., MD Chest X-Ray 02/20/17 0000 Signed Impressions: Service Date/Time: Monday, February 20, 2017 11:36 - CONCLUSION: 1. Stable very small right and small left pleural effusions with left lower lobe airspace consolidation. 2. No significant interval change. Juan Bhakta MD Abdomen/Pelvis CT 02/19/17 0000 Signed Impressions: Service Date/Time: Sunday, February 19, 2017 19:09 - CONCLUSION: 1. Areas of calcification seen in the right renal collecting system, right renal pelvis, and proximal right ureter. These appear to layer and be dependent suggesting likely to represent smaller areas of milk of calcium or small stones. There is mild dilatation of the right renal collecting system and right ureter. A definite obstructing stone at this time is not seen. 2. A small amount of air within the urinary bladder. This should be correlated with any recent catheterization. 3. Mild bilateral pleural effusions with accompanying atelectasis or consolidation at the left base. The consolidation was present previously. 4. Prominent degenerative change in the lumbar spine and at the hip joints bilaterally. Angelo Manzo MD Chest X-Ray 02/12/17 0600 Signed Impressions: Service Date/Time: Sunday, February 12, 2017 03:32 - CONCLUSION: 1. Support apparatus in good position. Relatively stable basilar airspace disease and pleural effusions. Trace Holloway MD Upper Extremity Ultrasound 02/10/17 0000 Signed Impressions: Service Date/Time: Friday, February 10, 2017 18:46 - CONCLUSION: Occlusive thrombus in the cephalic and basilic veins. Benjamin Person MD Lung Scan- Nuclear Medicine 02/10/17 0000 Signed Impressions: Service Date/Time: Friday, February 10, 2017 22:17 - CONCLUSION: Low probability pulmonary embolism. Candido Patton MD Head CT 02/10/17 0000 Signed Impressions: Service Date/Time: Friday, February 10, 2017 23:51 - CONCLUSION: Negative noncontrast CT brain. Candido Patton MD Chest CT 02/10/17 0000 Signed Impressions: Service Date/Time: Friday, February 10, 2017 23:56 - CONCLUSION: Left lower lobe collapse with consolidation. Patchy infiltrates the medial right lower lung. Candido Patton MD Abdomen/Pelvis CT 02/10/17 0000 Signed Impressions: Service Date/Time: Friday, February 10, 2017 23:59 - CONCLUSION: 1. Nonobstructing 12 mm calcified stone lower pole right kidney. 2. Atrophic left kidney with significant cortical thinning. 3. Bilateral fat-containing inguinal hernias, large on the right, and moderate on the left. 4. Consolidative collapse of the left lower lobe. Candido Patton MD Abdomen X-Ray 02/10/17 0000 Signed Impressions: Service Date/Time: Friday, February 10, 2017 08:14 - CONCLUSION: No acute abdominal abnormality is identified. Angelo Allen MD Wrist X-Ray 02/06/17 0000 Signed Impressions: Service Date/Time: Monday, February 06, 2017 12:50 - CONCLUSION: Minimally displaced distal radius and ulnar fractures. Armando Dodd MD Lumbar Puncture Fluoroscopy 02/01/17 0000 Signed Impressions: Service Date/Time: January 09:35 - CONCLUSION: Uncomplicated fluoroscopically guided lumbar puncture. CSF was clear. Nabeel Peralta MD Head Magnetic Resonance Angiography 01/27/17 Signed Impressions: Service Date/Time: Friday, January 27, 2017 10:33 - CONCLUSION: No intracranial vascular abnormality is identified. There is no aneurysm visualized. Angelo Allen MD IVC Filter Placement X-Ray 01/25/17 0000 Signed Impressions: Service Date/Time: January 10:29 - CONCLUSION: Uncomplicated inferior vena cava filter placement as above. Yung Fowler MD Thoracic Spine MRI 01/24/17 Signed Impressions: Service Date/Time: Tuesday, January 24, 2017 22:29 - CONCLUSION: 1. Mild degenerative spondylosis most prominently at T11-L1 with slight effacement of the anterior thecal sac and left lateral recess. No significant neural foraminal stenosis. 2. No acute fracture. Juan Bhakta MD Renal Ultrasound 01/23/17 Signed Impressions: Service Date/Time: Monday, January 23, 2017 08:53 - CONCLUSION: 1. Evidence of chronic parenchymal disease of both kidneys. No obstructive uropathy or other acute abnormality demonstrated. 2. Trace ascites, nonspecific. Angelo Garrido MD Lumbar Spine MRI 01/23/17 0000 Signed Impressions: Service Date/Time: Monday, January 23, 2017 17:01 - CONCLUSION: 1. At L4-5 is a broad-based disc protrusion with severe central canal and lateral recess stenosis and flattening of the exiting right L4 nerve root. 2. L5-S1 there is a disc protrusion and moderate stenosis with flattening of the exiting L5 nerve roots bilaterally. 3. At L3-4 there is a moderate to severe central stenosis and lateral recess stenosis with mild foraminal stenosis. 4. No acute fracture or spondylolisthesis. Trace Holloway MD Lower Extremity Ultrasound 01/23/17 Signed Impressions: Service Date/Time: Monday, January 23, 2017 09:53 - CONCLUSION: Bilateral focal lower extremity DVT involving the posterior tibial veins. Angelo Garrido MD Cervical Spine MRI 01/23/17 Signed Impressions: Service Date/Time: Monday, January 23, 2017 17:01 - CONCLUSION: 1. Multilevel cervical spine degenerative changes as above. 2. Mild degrees of spinal stenosis at C3/C4-C6/C7. No cord compression or cord signal abnormality. 3. Age indeterminate left paracentral/foraminal disc protrusion at C6/C7. 4. Multilevel foraminal stenosis, most severe on the left at C6/C7. Please see individual levels above. 5. No fracture or subluxation of the cervical spine. Angelo Garrido MD Brain MRI 01/23/17 Signed Impressions: Service Date/Time: Monday, January 23, 2017 17:01 - CONCLUSION: 1. No acute stroke or other acute intracranial abnormality demonstrated. 2. Moderate severity chronic white matter changes, nonspecific but most likely related to chronic small vessel disease. 3. Few scattered tiny lacunar infarcts of the brainstem. 4. Given the findings are not entirely specific, clinical evaluation for possible multiple sclerosis recommended. Angelo Garrido MD Knee X-Ray 01/22/172053 Signed Impressions: Service Date/Time: Sunday, January 22, 2017 21:17 - CONCLUSION: 1. Evidence of moderate to large joint effusion. 2. No acute fracture or malalignment. 3. Mild 3 compartment osteoarthritic change. Benjamin Person MD Hip and Pelvis X-Ray 01/22/172053 Signed Impressions: Service Date/Time: Sunday, January 22, 2017 21:10 - CONCLUSION: 1. Mild to moderate degenerative change of both hips with no acute fracture or malalignment. There is flattening and remodeling of the right humeral head. Benjamin Person MD Physical Exam GENERAL: Awake, tracking. On vent, NAD SKIN: Cool and dry. No generalized rash. EYES: [place] conjunctiva. No petechia or hemorrhage. EARS, NOSE AND THROAT: Nose without bleeding or purulent nasal discharge. ET in mouth NECK: Trachea midline. Supple and no meningeal signs CARDIOVASCULAR: Regular rate and rhythm. Soft heart sounds. No murmurs, rubs or gallops heard RESPIRATORY: Coarse BS bilaterally, decreased at bases. ABDOMEN: Soft, mildly distended, some grimacing during palpation. EXTREMITIES: No clubbing, cyanosis. More edematous. : very swollen scrotum LUE - wound vac in place NEUROLOGICAL: Awake and tracking PSYCHIATRIC: Unable to assess LINE: Lines with no evidence of infection Assessment & Plan Remarks IMPRESSION New fevers New shock, due to large R retroperitoneal bleed, S/P multiple transfusions and S/P coiling of bleeders, resolved Elevated amylase and lipase, ?due to shock Anemia, due to bleed, retroperitoneal MSSA sepsis, due to suppurative thrombophlebitis LUE, S/P I and D and excision of portion of cephalic vein - needs Rx until Mar 25 Respiratory failure, has had several intubations - reintubated again 02/28 Recent Rx 7 days high dose solumedrol for transverse myelitis Wu LE DVT has IVC filter placed 01/25 - ?hypercoagulable state Chronic kidney disease, worsening creatinine - shock and compression of ureter by hematoma Known DM, HTN Gouty tophi both hands and feet Diarrhea, C diff negative UTI, GNR Thrombocytopenia, no evidence of DIC, ?meds, ?infection, ?due to bleed RECOMMENDATION Give dose of Vanco today, check level tomorrow Continue Invanz 2 BC today UA and C/S Sputum G/S C/S Monitor temps Monitor progress Follow new C/S Irene Edwards MD Mar 08, 2017 16:23
[2017-03-08] MEDS ORDERED: NOREPINEPHRINE-DEXTROSE DRIP 250 ML IV ONE (17:09)
[2017-03-08] MEDS ORDERED: TERBUTALINE INJ 1 MG/ML AMP SQ PRN (17:15)
[2017-03-08] MEDS ORDERED: PHENYLEPHRINE INJ 160 MG in DEXTROSE 5% IN WATE 500 ML INJ 484 ML IV PRN ×2 (17:15)
[2017-03-08] MEDS: ALBUMIN 25% INJ 100 ML IV PRN ×2 (17:27→17:28)
[2017-03-08] MEDS: GENTAMICIN SULFATE (DIALYSIS USE ONLY) 20 MG/2 ML VIAL OTHER PRN ×2 (17:27→17:28)
[2017-03-08] MEDS: MANNITOL 12.5 GM/50 ML VIAL IV PRN (17:27)
--- NOTE | 2017-03-08 17:44 | RADRPT ---
EXAM DATE/TIME: 03/08/2017 18:07 [facility] COMPARISON: CHEST SINGLE AP, March 08, 2017, 5:41. INDICATIONS : Short of breath MEDICAL HISTORY : Chronic obstructive pulmonary disease. Diabetes mellitus type II. SURGICAL HISTORY : Renal stents ENCOUNTER: Subsequent ACUITY: 1 month PAIN SCORE: Non-responsive. LOCATION: chest FINDINGS: A single portable frontal view the chest the pleura by motion artifact. Bilateral pulmonary infiltrat es with suspected small left effusion. Appearance is stable. Heart is at the upper limits of normal i n terms of size. Tip of the endotracheal tube 4 cm from the ro[place]. Nasogastric tube courses off the inferior margin of the film. Right-sided central line. Left-sided Vas-Cath. CONCLUSION: Unchanged bilateral pulmonary infiltrates and suspected small left effusion. Candido Mendoza Jr., MD on March 08, 2017 at 17:40 Board Certified Radiologist. This report was verified electronically.
[2017-03-08] MEDS ORDERED: VANCOMYCIN INJ 1,000 MG in SODIUM CHLOR 0.9% 250 ML INJ 250 ML IV ONE (18:00)
[2017-03-08] MEDS: ERTAPENEM INJ 1,000 MG in SODIUM CHLORIDE 0.9% INJ 100 ML IV SCH (20:21)
[2017-03-08] MEDS: ATORVASTATIN 10 MG TAB PO SCH (20:22)
[2017-03-08 23:24] LABS: HEMATOCRIT 25.9 % (39.0-51.0); MEAN CELL VOLUME 89.9 FL (80.0-100.0); MEAN CORPUSCULAR HGB CONC 33.4 % (32.0-36.0); PLATELET COUNT 120 TH/MM3 (150-450); RED BLOOD COUNT 2.89 MIL/MM3 (4.50-5.90); RED CELL DISTRIBUTION WIDTH 15.3 % (11.6-17.2); REVIEW FLAG FINAL; WHITE BLOOD COUNT 11.5 TH/MM3 (4.0-11.0)
[2017-03-08 23:26] LABS: BLOOD, URINE MOD (NEG); COMMENT (UR) CATH-CULT NOT IND; CULTURE IF INDICATED CATH CULTURE NOT IND; GLUCOSE,URINE NEG (NEG); KETONE, URINE NEG (NEG); NITRITE,URINE NEG (NEG); PH, URINE 5.5 (5.0-8.5); SQUAMOUS EPITHELIAL CELL URINE <1 /hpf (0-5); URINE COLOR YELLOW (YELLW/STRAW)
[2017-03-09] VITALS (18 sets, daily range): BP systolic 99–160; BP diastolic 61–89; PULSE 97–122; RESP 12–18; TEMP 98.4–101; O2SAT 94–100
[2017-03-09] MEDS: oxyCODONE HCL ORAL CONC 5 MG/0.25 ML SYRINGE PO SCH ×6 (02:08→21:24)
[2017-03-09] MEDS: ACETAMINOPHEN 325 MG TAB PO PRN (02:28)
[2017-03-09] MEDS: RESP: ALBUTEROL 2.5 MG/IPRATROPIUM 0.5 MG NEB (SCH) NEB ×3 (03:22→19:46)
[2017-03-09] MEDS: INSULIN NovoLIN REGULAR SUPPLEMENTAL SCALE SQ SCH ×6 (04:00→23:58)
[2017-03-09] MEDS: FREE WATER G-TUBE SCH ×6 (04:00→23:58)
[2017-03-09 06:00] LABS: AUTOMATED NEUTROPHIL # 10.2 TH/MM3 (1.8-7.7); BASOPHIL % 0.2 % (0.0-2.0); EOSINOPHIL # 0.3 TH/MM3 (0-0.4); HEMATOCRIT 25.5 % (39.0-51.0); LYMPH % 9.3 % (9.0-44.0); LYMPHOCYTE # 1.2 TH/MM3 (1.0-4.8); MEAN CORPUSCULAR HEMOGLOBIN 30.4 PG (27.0-34.0); MEAN CORPUSCULAR HGB CONC 33.7 % (32.0-36.0); MONO % 8.3 % (0.0-8.0); NEUT % 80.2 % (16.0-70.0); PLATELET COUNT 120 TH/MM3 (150-450); RED BLOOD COUNT 2.83 MIL/MM3 (4.50-5.90); RED CELL DISTRIBUTION WIDTH 15.8 % (11.6-17.2); WHITE BLOOD COUNT 12.7 TH/MM3 (4.0-11.0)
[2017-03-09] MEDS: METOCLOPRAMIDE HCL 10 MG/2 ML VIAL IV PUSH SCH ×3 (06:00→21:24)
[2017-03-09] MEDS: ARTIFICIAL TEARS OPTH SOLN 15 ML BTL EACH EYE SCH ×3 (06:00→22:12)
[2017-03-09 06:01] LABS: HEMO FLAGS AUTO DIFF
--- NOTE | 2017-03-09 06:25 | RADRPT ---
EXAM DATE/TIME: 03/09/2017 05:53 [facility] COMPARISON: CHEST SINGLE AP, March 08, 2017, 18:07. INDICATIONS : Respiratory failure. MEDICAL HISTORY : Chronic obstructive pulmonary disease. Diabetes mellitus type II. SURGICAL HISTORY : Renal stents. ENCOUNTER: Subsequent ACUITY: 1 month PAIN SCORE: Non-responsive. LOCATION: Bilateral chest FINDINGS: A single view of the chest demonstrates stable position of endotracheal tube, nasogastric tube and bi lateral jugular lines. Minimal bibasilar densities, slightly improved. Osseous structures are intact . CONCLUSION: 1. Improving bibasilar densities. Armando Dodd MD on March 09, 2017 at 6:23 Board Certified Radiologist. This report was verified electronically.
[2017-03-09 06:26] LABS: BICARBONATE 23.9 MEQ/L (21.0-32.0); MAGNESIUM 1.8 MG/DL (1.5-2.5); POTASSIUM 4.1 MEQ/L (3.5-5.1)
[2017-03-09] MEDS: CHLORHEXIDINE 0.12% (ORAL KIT) 15 ML CUP MT SCH ×2 (08:00→20:38)
[2017-03-09 08:31] LABS: BANDS 16 % (0-6); EOSINOPHILS 1 % (0-4); METAMYELOCYTES 1 % (0-1); NEUTROPHIL # MANUAL DIFF 11.6 TH/MM3 (1.8-7.7); POLYS (SEG NEUTROPHILS) 74 % (16-70); WBC DIFF SAMPLE 100
[2017-03-09 08:32] LABS: PLATELET ESTIMATE SMEAR LOW (NORMAL); PLATELET MORPHOLOGY NORMAL (NORMAL); SCAN/DIFF FINAL DIFF MANUAL
--- NOTE | 2017-03-09 08:54 | HHI.IDPN ---
Subjective Subjective Remarks Patient is a 62-year-old male, admitted to the hospital for evaluation of pain in his right wrist. He gave a history of falling about a week ago and apparently had immediate pain in the right wrist. He did not seek any medical attention initially because reportedly he was very busy. He eventually presented, and he was found to have a distal ulnar fracture on plain films. He also had some redness and swelling. Orthopedics saw the patient, and was being treated conservatively with the splint. During this hospitalization also he started complaining of generalized weakness but more so in his lower extremity than his upper extremity. He had swelling in both lower extremity which revealed evidence of DVT in the posterior tibial veins. Neurology had seen the patient and he underwent lumbar puncture which apparently was traumatic. Patient was therefore not given anticoagulation because of the traumatic LP, and he underwent placement of an IVC filter on January 25. Patient had another lumbar puncture on February 01. He was felt to have transverse myelitis, and he was given high-dose IV Solu-Medrol from January 27 to February 02. There was apparently some improvement in his weakness. The imaging studies done for his weakness showed some spinal stenosis, and neurosurgery was consult that and recommended that there was no surgical intervention to be done. Patient has been stabilizing, but last night apparently deteriorated, and he ended up getting intubated, and had significant hypotension requiring pressors. There was also an ultrasound done of his left upper extremity which showed DVT, and there was evidence of superior 2 thrombophlebitis. Vascular surgery was consult to it and he had IND on his left upper extremity. Patient has had some fevers since yesterday. 2 blood cultures were done yesterday and they're now reported as growing gram-positive cocci in [place] in clusters. He is currently sedated and intubated. He is on Levophed and vasopressin. A central line was placed as well as a femoral a line. He apparently had an IV in his left upper extremity and that was removed yesterday. Patient also has history of chronic kidney disease, and nephrology evaluated the patient. He was just being monitored for his renal insufficiency. Infectious disease consultation has been requested to evaluate the patient. Notes reviewed D/W RN Temps better overnight Had HD yesterday Sedated on the vent Antibiotics I attest that I obtained, updated or reviewed the home and current medications. Antibiotics - Invanz Vanco x 1 dose 03/08 Current Medications Medications (Trade) Dose Ordered Sig/Rosalia Route Start Time Stop Time Status Last Admin (NS Flush) 2 ml UNSCH PRN IV FLUSH 01/23/17 00:30 02/01/17 05:07 (NS Flush) 2 ml BID IV FLUSH 01/23/17 09:00 03/07/17 20:16 (Tylenol) 650 mg Q4H PRN PO 01/23/17 00:30 03/09/17 02:28 (Zofran Inj) 4 mg Q6H PRN IVP 01/23/17 00:30 02/26/17 17:23 (Narcan Inj) 0.4 mg UNSCH PRN IV 01/23/17 00:30 (Edna-Colace) 1 tab BID PO 01/23/17 09:00 Future Hold 02/24/17 20:31 (Dulcolax Supp) 10 mg DAILY PRN RECTAL 01/23/17 00:30 (Lipitor) 10 mg HS PO 01/24/17 21:00 Future hold 03/08/17 20:22 (Glucagon Inj) 1 mg UNSCH PRN OTHER 02/11/17 05:45 02/18/17 18:53 (Flomax) 0.4 mg Q12HR PO 02/17/17 15:00 Future Hold 02/26/17 08:49 (Lovenox Inj) 100 mg Q12H SQ 02/18/17 12:00 Future Hold 02/26/17 16:20 (Lactinex) 1 tab TID PO 02/19/17 13:00 03/08/17 14:14 (Apresoline Inj) 10 mg Q30M PRN IV PUSH 02/20/17 11:45 03/06/17 08:45 (D50w (Vial) Inj) 25 ml UNSCH PRN IV PUSH 02/20/17 12:45 Sodium Chloride 1,000 ml @ 20 mls/hr Q24H IV 02/22/17 13:00 03/08/17 13:00 Oxacillin Sodium 2 gm/Sodium Chloride 100 ml @ 200 mls/hr Q4H IV 02/23/17 12:00 Future Hold 02/27/17 04:25 (Questran Light Pkt) 4 gm Q12HR PO 02/25/17 21:00 Future Hold 02/27/17 10:32 (Aldactone) 25 mg DAILY PO 02/27/17 09:00 Future Hold (Reglan Inj) 5 mg Q8HR IV PUSH 02/26/17 22:00 03/08/17 22:37 (Brethine Inj) 1 mg UNSCH PRN SQ 02/27/17 16:30 (Peridex 0.12% Liq) 15 ml BID@08,20 MT 02/28/17 08:00 03/08/17 20:21 Fentanyl Citrate 250 ml @ 5 mls/hr TITRATE PRN IV 02/28/17 08:00 03/08/17 23:58 (Albuterol Neb) 2.5 mg Q2HR NEB PRN NEB 02/28/17 07:45 (NovoLIN R SUPPLEMENTAL SCALE) 1 Q4HR SQ 02/28/17 08:00 03/08/17 23:51 (Tears Naturale Opth Soln) 1 drop Q8HR EACH EYE 02/28/17 14:00 03/09/17 06:00 Sodium Chloride 1,000 ml @ 0 mls/hr Q0M PRN OTHER 03/01/17 11:19 03/02/17 13:00 Sodium Chloride 1,000 ml @ 200 mls/hr Q5H PRN IV 03/01/17 11:19 Sodium Chloride 1,000 ml @ 0 mls/hr Q0M PRN OTHER 03/01/17 11:19 (Mannitol Inj) 12.5 gm UNSCH PRN IV 03/01/17 11:30 03/08/17 17:27 Albumin Human 100 ml @ 60 mls/hr UNSCH PRN IV 03/01/17 11:30 03/08/17 17:28 (NS Flush) 5 ml UNSCH PRN IV FLUSH 03/01/17 11:30 (Heparin Inj) UNSCH PRN .XX 03/01/17 11:30 03/02/17 13:00 (Gentamicin (Dialysis) Inj) 20 mg UNSCH PRN OTHER 03/01/17 11:30 03/08/17 17:28 (Tylenol) 650 mg UNSCH PRN PO 03/01/17 11:30 (Nitrostat Sl) 0.4 mg UNSCH PRN SL 03/01/17 11:30 (Gelfoam 12 Mm/7 Mm Top) 1 foam UNSCH PRN TOP 03/01/17 11:30 (NS Flush) UNSCH PRN IV FLUSH 03/01/17 13:00 (Heparin Inj) UNSCH PRN IV FLUSH 03/01/17 13:00 Ertapenem 1000 mg/ Sodium Chloride 100 ml @ 200 mls/hr Q24H IV 03/01/17 20:00 03/08/17 20:21 (NS Flush) DAILY IV FLUSH 03/04/17 09:00 (NS Flush) UNSCH PRN IV FLUSH 03/03/17 18:45 Propofol 100 ml @ 3.894 mls/ hr TITRATE PRN IV 03/05/17 07:45 03/08/17 10:19 (Mag-Ox) 800 mg UNSCH PRN PO 03/05/17 07:45 03/07/17 14:00 Magnesium Sulfate 4 gm/Sodium Chloride 100 ml @ 50 mls/hr UNSCH PRN IV 03/05/17 07:45 Magnesium Sulfate 2 gm/Sodium Chloride 100 ml @ 50 mls/hr UNSCH PRN IV 03/05/17 07:45 03/08/17 14:29 Potassium Chloride 100 ml @ 50 mls/hr Q2H PRN IV 03/05/17 07:45 03/07/17 08:01 Potassium Chloride 100 ml @ 50 mls/hr Q2H PRN IV 03/05/17 07:45 Potassium Chloride 100 ml @ 50 mls/hr Q2H PRN IV 03/05/17 07:45 Potassium Chloride 100 ml @ 25 mls/hr UNSCH PRN IV 03/05/17 07:45 (K-Phos) 2,000 mg Q4H PRN PO 03/05/17 07:45 (K-Phos) 2,000 mg UNSCH PRN PO/TUBE 03/05/17 07:45 Potassium Phosphate 30 mmol/ Sodium Chloride 260 ml @ 42 mls/hr UNSCH PRN IV 03/05/17 07:45 Sodium Phosphate 30 mmol/Sodium Chloride 250 ml @ 42 mls/hr UNSCH PRN IV 03/05/17 07:45 (Roxicodone Intensol Liq) 10 mg Q4H PO 03/05/17 14:00 03/09/17 06:44 (Free Water) VOLUME OF WATER: ( 200 ) ML Q4HR G-TUBE 10/17/17 12:00 03/09/17 04:00 (Duoneb Neb) 1 ampule Q6HR NEB NEB 03/07/17 10:00 03/09/17 03:22 (SoluCORTEF INJ) 50 mg Taper DAILY IV 03/08/17 09:00 03/12/17 08:59 03/08/17 10:09 (Levemir Inj) 5 units BID SQ 03/07/17 21:00 03/08/17 20:48 (Prevacid Odt) 30 mg BID NG 03/07/17 21:00 03/08/17 20:22 Phenylephrine HCl 160 mg/Dextrose 500 ml @ 7.5 mls/hr TITRATE PRN IV 03/08/17 17:15 03/08/17 20:20 (Brethine Inj) 1 mg UNSCH PRN SQ 03/08/17 17:15 Lines LSC TLC RIJ cordis Past Medical History Reviewed Allergies: Coded Allergies: levofloxacin (Verified Allergy, Severe, 01/22/17) Objective . Vital Signs Date Time Temp Pulse Resp B/P (MAP) Pulse Ox O2 Delivery O2 Flow Rate FiO2 03/09/17 06:00 120 03/09/17 04:30 95 35 03/09/17 04:00 120 03/09/17 04:00 98.9 120 16 99/61 (74) 96 03/09/17 04:00 30 03/09/17 02:00 115 03/09/17 01:17 100 35 03/09/17 00:00 30 03/09/17 00:00 98.4 121 16 149/71 (97) 98 03/09/17 00:00 121 03/08/17 23:00 100 35 03/08/17 22:00 112 03/08/17 20:20 120 90/64 03/08/17 20:00 99.9 121 16 94/61 (72) 96 03/08/17 20:00 30 03/08/17 20:00 121 03/08/17 19:44 99 35 03/08/17 19:00 97 Mechanical Ventilator 35 03/08/17 18:00 126 03/08/17 16:00 100.3 127 16 121/72 (88) 96 03/08/17 16:00 30 03/08/17 16:00 100 03/08/17 14:48 97 35 03/08/17 14:00 126 03/08/17 12:27 95 35 03/08/17 12:00 130 03/08/17 12:00 101.0 130 6 102/71 (81) 93 03/08/17 12:00 35 03/08/17 10:51 35 03/08/17 10:51 100 35 03/08/17 10:00 140 . Laboratory Tests Test 03/08/17 05:00 03/08/17 23:00 03/09/17 05:46 White Blood Count 13.9 TH/MM3 11.5 TH/MM3 12.7 TH/MM3 Red Blood Count 3.30 MIL/MM3 2.89 MIL/MM3 2.83 MIL/MM3 Hemoglobin 9.9 GM/DL 8.7 GM/DL 8.6 GM/DL Hematocrit 29.6 % 25.9 % 25.5 % Mean Corpuscular Volume 89.8 FL 89.9 FL 90.0 FL Mean Corpuscular Hemoglobin 29.9 PG 30.0 PG 30.4 PG Mean Corpuscular Hemoglobin Concent 33.3 % 33.4 % 33.7 % Red Cell Distribution Width 16.0 % 15.3 % 15.8 % Platelet Count 133 TH/MM3 120 TH/MM3 120 TH/MM3 Mean Platelet Volume 8.3 FL 8.3 FL 8.4 FL Neutrophils (%) (Auto) 80.2 % Lymphocytes (%) (Auto) 9.3 % Monocytes (%) (Auto) 8.3 % Eosinophils (%) (Auto) 2.0 % Basophils (%) (Auto) 0.2 % Neutrophils # (Auto) 10.2 TH/MM3 Lymphocytes # (Auto) 1.2 TH/MM3 Monocytes # (Auto) 1.0 TH/MM3 Eosinophils # (Auto) 0.3 TH/MM3 Basophils # (Auto) 0.0 TH/MM3 CBC Comment AUTO DIFF Differential Total Cells Counted 100 Neutrophils % (Manual) 74 % Band Neutrophils % 16 % Lymphocytes % 4 % Monocytes % 4 % Eosinophils % 1 % Neutrophils # (Manual) 11.6 TH/MM3 Metamyelocytes 1 % Differential Comment FINAL DIFF MANUAL Platelet Estimate LOW Platelet Morphology Comment NORMAL Red Cell Morphology Comment NORMAL Laboratory Tests Test 03/07/17 20:00 03/08/17 05:00 03/09/17 05:46 Potassium Level 3.4 MEQ/L 3.4 MEQ/L 4.1 MEQ/L Magnesium Level 1.5 MG/DL 1.4 MG/DL 1.8 MG/DL Blood Urea Nitrogen 49 MG/DL 56 MG/DL Creatinine 1.50 MG/DL 1.58 MG/DL Random Glucose 115 MG/DL 149 MG/DL Calcium Level 7.7 MG/DL 7.8 MG/DL Phosphorus Level 2.5 MG/DL 2.9 MG/DL Sodium Level 146 MEQ/L 146 MEQ/L Chloride Level 113 MEQ/L 114 MEQ/L Carbon Dioxide Level 24.4 MEQ/L 23.9 MEQ/L Anion Gap 9 MEQ/L 8 MEQ/L Estimat Glomerular Filtration Rate 47 ML/MIN 45 ML/MIN Microbiology Date/Time Source Procedure Growth Status 03/08/17 19:49 Blood Peripheral Aerobic Blood Culture Pending Received 03/08/17 19:49 Blood Peripheral Anaerobic Blood Culture Pending Received 03/08/17 19:40 Blood Line Aerobic Blood Culture Pending Received 03/08/17 19:40 Blood Line Anaerobic Blood Culture Pending Received 03/08/17 23:00 Sputum Endotracheal Gram Stain - Final Resulted 03/08/17 23:00 Sputum Endotracheal Sputum Culture Pending Resulted Imaging Chest X-Ray 03/02/17 0600 Signed Impressions: Service Date/Time: Thursday, March 02, 2017 01:56 - CONCLUSION: 1. Supine apparatus in good position. Bilateral space disease, left greater than right. Left-sided pleural effusion similar to prior exam. Trace Holloway MD Aortography 02/28/17 0000 Signed Impressions: Service Date/Time: Tuesday, February 28, 2017 08:01 - CONCLUSION: 1. Active hemorrhage from distal right lateral sacral and iliolumbar branches successfully coil and Gelfoam embolized, as above. Juan Bhakta MD Abdomen/Pelvis CT 02/28/17 0000 Signed Impressions: Service Date/Time: Tuesday, February 28, 2017 06:51 - CONCLUSION: 1. The right retroperitoneal hematoma has increased in size, as above. There are 2 serpiginous arterially enhancing structures visualized, one in the right psoas muscle and another extending into the hematoma at the right iliac fossa. These could represent sites of continued active bleeding. 2. Stable moderate size left and small right pleural effusion with associated compressive atelectasis. 3. Stable small volume of free fluid in the abdomen and pelvis. There is also anasarca. The findings concerning the retroperitoneal hematoma were discussed with Dr. Aguiar via telephone at approximately 7: 10 AM on 02/28/2017. Angelo Allen MD Chest CT 02/27/17 0000 Signed Impressions: Service Date/Time: Monday, February 27, 2017 18:12 - CONCLUSION: 1. Bilateral pleural effusions with bibasilar atelectasis, left greater than right. Tom Sanchez MD Abdomen X-Ray 02/26/17 0000 Signed Impressions: Service Date/Time: Sunday, February 26, 2017 14:52 - CONCLUSION: 1. Nonobstructive bowel gas pattern. Juan Bhakta MD Upper Extremity Ultrasound 02/10/17 0000 Signed Impressions: Service Date/Time: Friday, February 10, 2017 18:46 - CONCLUSION: Occlusive thrombus in the cephalic and basilic veins. Benjamin Person MD Lung Scan- Nuclear Medicine 02/10/17 0000 Signed Impressions: Service Date/Time: Friday, February 10, 2017 22:17 - CONCLUSION: Low probability pulmonary embolism. Candido Patton MD Head CT 02/10/17 0000 Signed Impressions: Service Date/Time: Friday, February 10, 2017 23:51 - CONCLUSION: Negative noncontrast CT brain. Candido Patton MD Wrist X-Ray 02/06/17 0000 Signed Impressions: Service Date/Time: Monday, February 06, 2017 12:50 - CONCLUSION: Minimally displaced distal radius and ulnar fractures. Armando Dodd MD Lumbar Puncture Fluoroscopy 02/01/17 0000 Signed Impressions: Service Date/Time: January 09:35 - CONCLUSION: Uncomplicated fluoroscopically guided lumbar puncture. CSF was clear. Nabeel Peralta MD Head Magnetic Resonance Angiography 01/27/17 0000 Signed Impressions: Service Date/Time: Friday, January 27, 2017 10:33 - CONCLUSION: No intracranial vascular abnormality is identified. There is no aneurysm visualized. Angelo Allen MD IVC Filter Placement X-Ray 01/25/17 0000 Signed Impressions: Service Date/Time: January 10:29 - CONCLUSION: Uncomplicated inferior vena cava filter placement as above. Yung Fowler MD Thoracic Spine MRI 01/24/17 Signed Impressions: Service Date/Time: Tuesday, January 24, 2017 22:29 - CONCLUSION: 1. Mild degenerative spondylosis most prominently at T11-L1 with slight effacement of the anterior thecal sac and left lateral recess. No significant neural foraminal stenosis. 2. No acute fracture. Juan Bhakta MD Renal Ultrasound 01/23/17 Signed Impressions: Service Date/Time: Monday, January 23, 2017 08:53 - CONCLUSION: 1. Evidence of chronic parenchymal disease of both kidneys. No obstructive uropathy or other acute abnormality demonstrated. 2. Trace ascites, nonspecific. Angelo Garrido MD Lumbar Spine MRI 01/23/17 Signed Impressions: Service Date/Time: Monday, January 23, 2017 17:01 - CONCLUSION: 1. At L4-5 is a broad-based disc protrusion with severe central canal and lateral recess stenosis and flattening of the exiting right L4 nerve root. 2. L5-S1 there is a disc protrusion and moderate stenosis with flattening of the exiting L5 nerve roots bilaterally. 3. At L3-4 there is a moderate to severe central stenosis and lateral recess stenosis with mild foraminal stenosis. 4. No acute fracture or spondylolisthesis. Trace Holloway MD Lower Extremity Ultrasound 01/23/17 Signed Impressions: Service Date/Time: Monday, January 23, 2017 09:53 - CONCLUSION: Bilateral focal lower extremity DVT involving the posterior tibial veins. Angelo Garrido MD Cervical Spine MRI 01/23/17 Signed Impressions: Service Date/Time: Monday, January 23, 2017 17:01 - CONCLUSION: 1. Multilevel cervical spine degenerative changes as above. 2. Mild degrees of spinal stenosis at C3/C4-C6/C7. No cord compression or cord signal abnormality. 3. Age indeterminate left paracentral/foraminal disc protrusion at C6/C7. 4. Multilevel foraminal stenosis, most severe on the left at C6/C7. Please see individual levels above. 5. No fracture or subluxation of the cervical spine. Angelo Garrido MD Brain MRI 9/5/17 0000 Signed Impressions: Service Date/Time: Monday, January 23, 2017 17:01 - CONCLUSION: 1. No acute stroke or other acute intracranial abnormality demonstrated. 2. Moderate severity chronic white matter changes, nonspecific but most likely related to chronic small vessel disease. 3. Few scattered tiny lacunar infarcts of the brainstem. 4. Given the findings are not entirely specific, clinical evaluation for possible multiple sclerosis recommended. Angelo Garrido MD Knee X-Ray 01/22/172053 Signed Impressions: Service Date/Time: Sunday, January 22, 2017 21:17 - CONCLUSION: 1. Evidence of moderate to large joint effusion. 2. No acute fracture or malalignment. 3. Mild 3 compartment osteoarthritic change. Benjamin Person MD Hip and Pelvis X-Ray [id number]/22/[id number] Signed Impressions: Service Date/Time: Sunday, January 22, 2017 21:10 - CONCLUSION: 1. Mild to moderate degenerative change of both hips with no acute fracture or malalignment. There is flattening and remodeling of the right humeral head. Benjamin Person MD Chest X-Ray 02/24/17 0600 Signed Impressions: Service Date/Time: Friday, February 24, 2017 03:58 - CONCLUSION: 1. Unchanged left lower lobe infiltrate with small effusion. Candido Mendoza Jr., MD Chest X-Ray 02/20/17 0000 Signed Impressions: Service Date/Time: Monday, February 20, 2017 11:36 - CONCLUSION: 1. Stable very small right and small left pleural effusions with left lower lobe airspace consolidation. 2. No significant interval change. Juan Bhakta MD Abdomen/Pelvis CT 02/19/17 0000 Signed Impressions: Service Date/Time: Sunday, February 19, 2017 19:09 - CONCLUSION: 1. Areas of calcification seen in the right renal collecting system, right renal pelvis, and proximal right ureter. These appear to layer and be dependent suggesting likely to represent smaller areas of milk of calcium or small stones. There is mild dilatation of the right renal collecting system and right ureter. A definite obstructing stone at this time is not seen. 2. A small amount of air within the urinary bladder. This should be correlated with any recent catheterization. 3. Mild bilateral pleural effusions with accompanying atelectasis or consolidation at the left base. The consolidation was present previously. 4. Prominent degenerative change in the lumbar spine and at the hip joints bilaterally. Angelo Manzo MD Chest X-Ray 02/12/17 0600 Signed Impressions: Service Date/Time: Sunday, February 12, 2017 03:32 - CONCLUSION: 1. Support apparatus in good position. Relatively stable basilar airspace disease and pleural effusions. Trace Holloway MD Upper Extremity Ultrasound 02/10/17 0000 Signed Impressions: Service Date/Time: Friday, February 10, 2017 18:46 - CONCLUSION: Occlusive thrombus in the cephalic and basilic veins. Benjamin Person MD Lung Scan-V Nuclear Medicine 02/10/17 0000 Signed Impressions: Service Date/Time: Friday, February 10, 2017 22:17 - CONCLUSION: Low probability pulmonary embolism. Candido Patton MD Head CT 02/10/17 0000 Signed Impressions: Service Date/Time: Friday, February 10, 2017 23:51 - CONCLUSION: Negative noncontrast CT brain. Candido Patton MD Chest CT 02/10/17 0000 Signed Impressions: Service Date/Time: Friday, February 10, 2017 23:56 - CONCLUSION: Left lower lobe collapse with consolidation. Patchy infiltrates the medial right lower lung. Candido Patton MD Abdomen/Pelvis CT 02/10/17 0000 Signed Impressions: Service Date/Time: Friday, February 10, 2017 23:59 - CONCLUSION: 1. Nonobstructing 12 mm calcified stone lower pole right kidney. 2. Atrophic left kidney with significant cortical thinning. 3. Bilateral fat-containing inguinal hernias, large on the right, and moderate on the left. 4. Consolidative collapse of the left lower lobe. Candido Patton MD Abdomen X-Ray 02/10/17 0000 Signed Impressions: Service Date/Time: Friday, February 10, 2017 08:14 - CONCLUSION: No acute abdominal abnormality is identified. Angelo Allen MD Wrist X-Ray 02/06/17 0000 Signed Impressions: Service Date/Time: Monday, February 06, 2017 12:50 - CONCLUSION: Minimally displaced distal radius and ulnar fractures. Armando Dodd MD Lumbar Puncture Fluoroscopy 02/01/17 0000 Signed Impressions: Service Date/Time: January 09:35 - CONCLUSION: Uncomplicated fluoroscopically guided lumbar puncture. CSF was clear. Nabeel Peralta MD Head Magnetic Resonance Angiography 01/27/17 Signed Impressions: Service Date/Time: Friday, January 27, 2017 10:33 - CONCLUSION: No intracranial vascular abnormality is identified. There is no aneurysm visualized. Angelo Allen MD IVC Filter Placement X-Ray 01/25/17 Signed Impressions: Service Date/Time: January 10:29 - CONCLUSION: Uncomplicated inferior vena cava filter placement as above. Yung Fowler MD Thoracic Spine MRI 01/24/17 Signed Impressions: Service Date/Time: Tuesday, January 24, 2017 22:29 - CONCLUSION: 1. Mild degenerative spondylosis most prominently at T11-L1 with slight effacement of the anterior thecal sac and left lateral recess. No significant neural foraminal stenosis. 2. No acute fracture. Juan Bhakta MD Renal Ultrasound 01/23/17 Signed Impressions: Service Date/Time: Monday, January 23, 2017 08:53 - CONCLUSION: 1. Evidence of chronic parenchymal disease of both kidneys. No obstructive uropathy or other acute abnormality demonstrated. 2. Trace ascites, nonspecific. Angelo Garrido MD Lumbar Spine MRI 01/23/17 Signed Impressions: Service Date/Time: Monday, January 23, 2017 17:01 - CONCLUSION: 1. At L4-5 is a broad-based disc protrusion with severe central canal and lateral recess stenosis and flattening of the exiting right L4 nerve root. 2. L5-S1 there is a disc protrusion and moderate stenosis with flattening of the exiting L5 nerve roots bilaterally. 3. At L3-4 there is a moderate to severe central stenosis and lateral recess stenosis with mild foraminal stenosis. 4. No acute fracture or spondylolisthesis. Trace Holloway MD Lower Extremity Ultrasound 01/23/17 Signed Impressions: Service Date/Time: Monday, January 23, 2017 09:53 - CONCLUSION: Bilateral focal lower extremity DVT involving the posterior tibial veins. Angelo Garrido MD Cervical Spine MRI 01/23/17 Signed Impressions: Service Date/Time: Monday, January 23, 2017 17:01 - CONCLUSION: 1. Multilevel cervical spine degenerative changes as above. 2. Mild degrees of spinal stenosis at C3/C4-C6/C7. No cord compression or cord signal abnormality. 3. Age indeterminate left paracentral/foraminal disc protrusion at C6/C7. 4. Multilevel foraminal stenosis, most severe on the left at C6/C7. Please see individual levels above. 5. No fracture or subluxation of the cervical spine. Angelo Garrido MD Brain MRI 01/23/17 0000 Signed Impressions: Service Date/Time: Monday, January 23, 2017 17:01 - CONCLUSION: 1. No acute stroke or other acute intracranial abnormality demonstrated. 2. Moderate severity chronic white matter changes, nonspecific but most likely related to chronic small vessel disease. 3. Few scattered tiny lacunar infarcts of the brainstem. 4. Given the findings are not entirely specific, clinical evaluation for possible multiple sclerosis recommended. Angelo Garrido MD Knee X-Ray 01/22/172053 Signed Impressions: Service Date/Time: Sunday, January 22, 2017 21:17 - CONCLUSION: 1. Evidence of moderate to large joint effusion. 2. No acute fracture or malalignment. 3. Mild 3 compartment osteoarthritic change. Benjamin Person MD Hip and Pelvis X-Ray [id number]/22/172053 Signed Impressions: Service Date/Time: Sunday, January 22, 2017 21:10 - CONCLUSION: 1. Mild to moderate degenerative change of both hips with no acute fracture or malalignment. There is flattening and remodeling of the right humeral head. Benjamin Person MD Physical Exam GENERAL: Sedated, looks comfortable on the vent SKIN: Cool and dry. No generalized rash. Still very edematous EYES: [place] conjunctiva. No petechia or hemorrhage. EARS, NOSE AND THROAT: Nose without bleeding or purulent nasal discharge. ET in mouth NECK: Trachea midline. Supple and no meningeal signs CARDIOVASCULAR: Regular rate and rhythm. Soft heart sounds. No murmurs, rubs or gallops heard RESPIRATORY: Coarse BS bilaterally, decreased at bases. ABDOMEN: Soft, mildly distended, some grimacing during palpation. EXTREMITIES: No clubbing, cyanosis. More edematous. : very swollen scrotum NEUROLOGICAL: Sedated PSYCHIATRIC: Unable to assess LINE: Lines with no evidence of infection Assessment & Plan Remarks IMPRESSION New fevers Shock, due to large R retroperitoneal bleed, S/P multiple transfusions and S/ P coiling of bleeders, resolved Elevated amylase and lipase, ?due to shock Anemia, due to bleed, retroperitoneal MSSA sepsis, due to suppurative thrombophlebitis LUE, S/P I and D and excision of portion of cephalic vein - needs Rx until Mar 25 Respiratory failure, has had several intubations - reintubated again 02/28 Recent Rx 7 days high dose solumedrol for transverse myelitis Wu LE DVT has IVC filter placed 01/25 - ?hypercoagulable state Chronic kidney disease, worsening creatinine - shock and compression of ureter by hematoma Known DM, HTN Gouty tophi both hands and feet Diarrhea, C diff negative UTI, GNR Thrombocytopenia, no evidence of DIC, ?meds, ?infection, ?due to bleed RECOMMENDATION Check Vanco level today Continue Invanz Follow C/S Monitor temps' BP being monitored closely, borderline Monitor progress D/W Irene Vogel MD Mar 09, 2017 08:54
[2017-03-09] MEDS: SODIUM CHLORIDE 0.9% FLUSH 10 ML FLUSH IV FLUSH SCH ×3 (09:00→20:39)
[2017-03-09] MEDS: HYDROCORTISONE SOD SUCCINATE 100 MG VIAL IV SCH ×2 (09:29→20:38)
[2017-03-09] MEDS: LANSOPRAZOLE SOLUTAB 30 MG TAB NG SCH ×2 (09:31→20:38)
[2017-03-09] MEDS: INSULIN DETEMIR 100 UNITS/ML VIAL SQ SCH ×2 (09:31→20:11)
[2017-03-09] MEDS: LACTOBACILLUS ACIDOPHILUS TAB PO SCH ×3 (09:31→17:53)
--- NOTE | 2017-03-09 10:15 | HHI.CCPN ---
Subjective Remarks/Hospital Course Date of admission: 01/22 Date of critical care medicine consult 02/10 due to acute hypoxemic respiratory failure requiring emergent intubation 62-year-old male with a past medical history of hypertension, hyperlipidemia, diabetes mellitus, gout, uric acid kidney stones, kidney disease of unknown stage who originally presented to [facility] emergency department on 01/22 after a fall in which he sustained a right distal ulna fracture. He had been experiencing a gradual primarily lower extremity weakness as well as upper extremity weakness that was progressive. Neurology consult was obtained. MRI revealed no acute stroke. He had multifocal white matter changes. Tiny lacunar infarcts of the brainstem. Lumbar MRI report states L4-L5 disc protrusion with cetnral canal stenosis. Dr. Blackwell evaluated and states no cord compression on MRI C/T spine and recommended nonoperative management. Symptoms were felt to be consistent with transverse myelitis and he underwent Solumedrol 250 mg IV q6 hours 01/27-02/02. He also was found to have occlusive thrombus in the bilateral posterior tibial veins. Heparin was being avoided because he had traumatic lumbar puncture on 01/26 and 02/01. IVC filter was placed 01/25. He was undergoing physical therapy, reportedly making some improvements with plan to eventually discharged home with his son (max assist standing, and bed to chair per PT note). Apparently he had some vomiting the evening of 02/09 and additional vomiting on 02/10. He had a fever 102.8 on 02/09. Last recorded bowel movement was 02/03. Tonight he had acute onset of severe hypoxemia and respiratory distress. [facility] called and he was brought emergently to [facility] where his sats were 64% on 100% nonrebreather with mean arterial pressure 44. He was emergently intubated, CVL and art line placed. He is in septic shock. SUBJ: 02/11: Patient remains intubated sedated, critically ill. FiO2 reduced to 80% after increasing PEEP to 12. In severe septic shock Levophed at 16 mcg/m, vasopressin at 0.04 international units. D/W vascular surgery Dr. Enciso. He performed bedside Left upper extremity incision and debridement and excision of septic cephalic vein. 02/12: Remains intubated sedated profoundly septic, in shock on vasopressin and 7 mcg/min Levophed. FiO2 has improved to 45%, WBC count remains elevated with 20 ,000 white count significant left shift. Slight improvement in creatinine 2.9 urine output 750 ml 24 hours. 2-D echo shows LV ejection fraction 20-25%, no vegetation reported. Blood cultures 4 staph aureus. Wound culture pending 02/13: Remains critically ill but stable to improving. WBC count is down to 16, creatinine improving to 2.36. Off all pressors. Urine output also improving. 1.5L in 24 hours 02/14: Extubated 02/13. Tolerating well. WBC now down to 12.8. Creat improving 2.3 to 2. UO 3.4L. remains off all pressors. Was started on Precedex yesterday night for agitation, currently on 0.5 g per KG per hour. Chest x-ray shows left more than right air space disease 02/20/17 Re consult: 62-year-old male who was originally admitted for lower extremity weakness and found to have what was thought to be possible transverse myelitis. His hospital course his included a healthcare associated pneumonia, septic thrombophlebitis, DVT. He was most recently in the hospital floor where he had significant nausea and vomiting and diarrhea. His C. difficile test was recently negative. However, he has experienced worsening acute on chronic renal failure, hypotension, tachycardia, and severe hypoxemia. He did have a bout of vomiting earlier today, and his hospitalist attending suspects that he may have aspirated. He arrives by rapid response to the ICU with a nonrebreather in place in severe respiratory distress with SPO2 of 85%. I emergently intubate the patient, see separate procedure note for details. At this point the patient was hypotensive and tachycardic. He does have a history of an EF of 20%, however clinically he appears in florid septic shock. I placed central line and arterial line started vasopressors and gentle IV fluid resuscitation with 1 L of LR. Patient today was empirically broadened to vancomycin and Zosyn from his oxacillin which was initially treating MSSA bacteremia. He is recultured. Critical-care medicine is consulted to evaluate and manage his worsening multiorgan system failure and decompensated septic shock 02/21: Patient remains intubated sedated. Becomes anxious tachypnea on sedation lightening. Chest x-ray shows mild left lower lobe infiltrate. WBC count is slightly improved today from 23.2 t0 21. C Diff negative. UO adequate, creat slightly worsening. 1.57 today 02/22: Remains intubated sedated tolerated CPAP yesterday, plan is for EGD/ Colonscopy. WBC count back to normal. UO adequate. Creat stable 02/23: Tolerating CPAP trials following commands. Will do a spontaneous breathing trials. Status post EGD colonoscopy yesterday -Gastritis, esophagitis. Diverticulosis and multiple polyps. Urine output adequate but creatinine increasing to 1.7 with patient requiring multiple straight catheterization. We'll reinsert Sloan. 02/24: Breathing comfortably 24 hours after extubation. Protects airway well. 02/25: Excoriate bottom, will place rectal FMS. Start pureed diet. 02/26: Afebrile. Complaining of nausea and vomiting this afternoon. Increased stool output. Continue potassium replacement today. 02/27: 10 PM overnight, acutely hypotensive. Received 3 units PRBCs. Antibiotic coverage broadened to piperacillin/tazobactam, cortisol and 1 dose of vancomycin. Oxacillin drip currently on hold. Symptomatically, patient continues to vague abdominal pain/nausea vomiting which is unchanged for the past several days. Lipase elevated yesterday. Lactic acid normal. Troponin normal. Urinary retention after removal of Sloan. Straight catheter 1300. Cc 02/28: New diagnosis large retroperitoneal hematoma. Received 10 PRBC, 14 FFP, 2 platelets, 1 cryo-, 6 g calcium chloride, 2 is magnesium sulfate and 4 mg Bumex. CTA abdomen revealed possible arterial bleeds iliac, lumbar. Patient is currently on norepinephrine and epinephrine drips and possible need right nephrostomy tube placement due to large hematoma compressing ureter. Intra-abdominal bladder pressures are currently 13 03/01: Afebrile. Received 25 g albumin and 1 unit PRBCs overnight. Intra- abdominal bladder pressures currently 19. Currently on 3 micrograms per minute of norepinephrine. [id number] 1 out of 4 on 4 mics grams per kilogram per minute of cisatracurium. 03/02: Slightly hypothermic overnight. Hemoglobin appears to have stabilized. Troponin bump overnight likely secondary to demand ischemia from hypotension. Hemodynamically stable off all vasopressors. 03/03: Received 1 PRBCs overnight. 3 units currently. Off all vasopressors. Likely rebleeding. Stool is dark. 03/04: Remains unstable. Ventilator dependent. 03/05: afebrile. hgb stable. 03/06: bumex drip started overnight. good uop after bumex initiated. still grossly volume overloaded. Cr downtrending. more awake with transition to propofol. still too volume overloaded to tolerate extubation. hgb stable. 03/07: Afebrile. Tolerating tube feeds at goal with Nepro. Positive BM. On low-dose fentanyl and propofol drips. Potassium currently being replaced. 03/08: Eyes will open on ventilator. Afebrile. Tolerating tube feeding. Failed PSV trial yesterday due to apnea. Subjective 03/09: Isopropyl ventilator's. Following commands. Tmax 101. Tolerating tube feeding. One hour PSV trial yesterday. Currently tolerating well so far today 1.5 hours Objective Vital Signs Date Time Temp Pulse Resp B/P (MAP) Pulse Ox O2 Delivery O2 Flow Rate FiO2 03/09/17 08:53 94 35 03/09/17 08:00 101.0 115 16 99/64 (76) 03/09/17 07:00 Mechanical Ventilator Intake and Output 03/09/17 03/09/17 03/10/17 08:00 16:00 00:00 Intake Total 910 ml Output Total 460 ml Balance 450 ml Result Diagram: 03/09/17 0546 03/09/17 0546 Other Results Microbiology Date/Time Source Procedure Growth Status 03/08/17 19:49 Blood Peripheral Aerobic Blood Culture Pending Received 03/08/17 19:49 Blood Peripheral Anaerobic Blood Culture Pending Received 02/01/17 09:55 Cerebral Spinal Fluid Lumbar Puncture Fungal Smear - Final NO FUNGAL ELEMENTS SEEN. Complete 02/01/17 09:55 Cerebral Spinal Fluid Lumbar Puncture Fungal Culture - Final NO GROWTH IN 4 WEEKS Complete 02/17/17 05:55 Stool Stool Stool Occult Blood (GREGORY) - Final HEMOCCULT POSITIVE Complete 03/08/17 23:00 Sputum Endotracheal Gram Stain - Final Resulted 03/08/17 23:00 Sputum Endotracheal Sputum Culture Pending Resulted 02/27/17 08:32 Urine Catheterized Urine Urine Culture - Final Klebsiella Pneumoniae Esbl Pos Complete 02/11/17 09:10 Abscess Arm Acid Fast Stain - Final NO ACID FAST BACILLI SEEN Resulted 02/11/17 09:10 Abscess Arm Mycobacterial Culture - Preliminary NO GROWTH IN 3 WEEKS Resulted Imaging Last Impressions Chest X-Ray 03/09/17 0600 Signed Impressions: Service Date/Time: Thursday, March 09, 2017 05:53 - CONCLUSION: 1. Improving bibasilar densities. Armando Dodd MD Aortography 02/28/17 0000 Signed Impressions: Service Date/Time: Tuesday, February 28, 2017 08:01 - CONCLUSION: 1. Active hemorrhage from distal right lateral sacral and iliolumbar branches successfully coil and Gelfoam embolized, as above. Juan Bhakta MD Abdomen/Pelvis CT 02/28/17 0000 Signed Impressions: Service Date/Time: Tuesday, February 28, 2017 06:51 - CONCLUSION: 1. The right retroperitoneal hematoma has increased in size, as above. There are 2 serpiginous arterially enhancing structures visualized, one in the right psoas muscle and another extending into the hematoma at the right iliac fossa. These could represent sites of continued active bleeding. 2. Stable moderate size left and small right pleural effusion with associated compressive atelectasis. 3. Stable small volume of free fluid in the abdomen and pelvis. There is also anasarca. The findings concerning the retroperitoneal hematoma were discussed with Dr. Aguiar via telephone at approximately 7: 10 AM on 02/28/2017. Angelo Allen MD Chest CT 02/27/17 0000 Signed Impressions: Service Date/Time: Monday, February 27, 2017 18:12 - CONCLUSION: 1. Bilateral pleural effusions with bibasilar atelectasis, left greater than right. Tom Sanchez MD Abdomen X-Ray 02/26/17 0000 Signed Impressions: Service Date/Time: Sunday, February 26, 2017 14:52 - CONCLUSION: 1. Nonobstructive bowel gas pattern. Juan Bhakta MD Upper Extremity Ultrasound 02/10/17 0000 Signed Impressions: Service Date/Time: Friday, February 10, 2017 18:46 - CONCLUSION: Occlusive thrombus in the cephalic and basilic veins. Benjamin Person MD Lung Scan- Nuclear Medicine 02/10/17 0000 Signed Impressions: Service Date/Time: Friday, February 10, 2017 22:17 - CONCLUSION: Low probability pulmonary embolism. Candido Patton MD Head CT 02/10/17 0000 Signed Impressions: Service Date/Time: Friday, February 10, 2017 23:51 - CONCLUSION: Negative noncontrast CT brain. Candido Patton MD Wrist X-Ray 02/06/17 0000 Signed Impressions: Service Date/Time: Monday, February 06, 2017 12:50 - CONCLUSION: Minimally displaced distal radius and ulnar fractures. Armando Dodd MD Lumbar Puncture Fluoroscopy 02/01/17 0000 Signed Impressions: Service Date/Time: January 09:35 - CONCLUSION: Uncomplicated fluoroscopically guided lumbar puncture. CSF was clear. Nabeel Peralta MD Head Magnetic Resonance Angiography 01/27/17 0000 Signed Impressions: Service Date/Time: Friday, January 27, 2017 10:33 - CONCLUSION: No intracranial vascular abnormality is identified. There is no aneurysm visualized. Angelo Allen MD IVC Filter Placement X-Ray 01/25/17 0000 Signed Impressions: Service Date/Time: January 10:29 - CONCLUSION: Uncomplicated inferior vena cava filter placement as above. Yung Fowler MD Thoracic Spine MRI 01/24/17 0000 Signed Impressions: Service Date/Time: Tuesday, January 24, 2017 22:29 - CONCLUSION: 1. Mild degenerative spondylosis most prominently at T11-L1 with slight effacement of the anterior thecal sac and left lateral recess. No significant neural foraminal stenosis. 2. No acute fracture. Juan Bhakta MD Renal Ultrasound 01/23/17 0000 Signed Impressions: Service Date/Time: Monday, January 23, 2017 08:53 - CONCLUSION: 1. Evidence of chronic parenchymal disease of both kidneys. No obstructive uropathy or other acute abnormality demonstrated. 2. Trace ascites, nonspecific. Angelo Garrido MD Lumbar Spine MRI 01/23/17 0000 Signed Impressions: Service Date/Time: Monday, January 23, 2017 17:01 - CONCLUSION: 1. At L4-5 is a broad-based disc protrusion with severe central canal and lateral recess stenosis and flattening of the exiting right L4 nerve root. 2. L5-S1 there is a disc protrusion and moderate stenosis with flattening of the exiting L5 nerve roots bilaterally. 3. At L3-4 there is a moderate to severe central stenosis and lateral recess stenosis with mild foraminal stenosis. 4. No acute fracture or spondylolisthesis. Trace Holloway MD Lower Extremity Ultrasound 01/23/17 Signed Impressions: Service Date/Time: Monday, January 23, 2017 09:53 - CONCLUSION: Bilateral focal lower extremity DVT involving the posterior tibial veins. Angelo Garrido MD Cervical Spine MRI 01/23/17 Signed Impressions: Service Date/Time: Monday, January 23, 2017 17:01 - CONCLUSION: 1. Multilevel cervical spine degenerative changes as above. 2. Mild degrees of spinal stenosis at C3/C4-C6/C7. No cord compression or cord signal abnormality. 3. Age indeterminate left paracentral/foraminal disc protrusion at C6/C7. 4. Multilevel foraminal stenosis, most severe on the left at C6/C7. Please see individual levels above. 5. No fracture or subluxation of the cervical spine. Angelo Garrido MD Brain MRI 01/23/17 Signed Impressions: Service Date/Time: Monday, January 23, 2017 17:01 - CONCLUSION: 1. No acute stroke or other acute intracranial abnormality demonstrated. 2. Moderate severity chronic white matter changes, nonspecific but most likely related to chronic small vessel disease. 3. Few scattered tiny lacunar infarcts of the brainstem. 4. Given the findings are not entirely specific, clinical evaluation for possible multiple sclerosis recommended. Angelo Garrido MD Knee X-Ray [id number]/22/[id number] Signed Impressions: Service Date/Time: Sunday, January 22, 2017 21:17 - CONCLUSION: 1. Evidence of moderate to large joint effusion. 2. No acute fracture or malalignment. 3. Mild 3 compartment osteoarthritic change. Benjamin Person MD Hip and Pelvis X-Ray [id number]/22/[id number] Signed Impressions: Service Date/Time: Sunday, January 22, 2017 21:10 - CONCLUSION: 1. Mild to moderate degenerative change of both hips with no acute fracture or malalignment. There is flattening and remodeling of the right humeral head. Benjamin Person MD Objective Remarks GENERAL: 62-year-old male, critically ill currently orotracheally intubated HEENT: Normocephalic. Atraumatic. Pupils equal, round, reactive, conjugate by 3 mm bilaterally. NECK: Trachea is midline. Obese. No JVD or thyromegaly right IJ TLC, left IJ hemodialysis catheter clean dry and intact CHEST: Diminished breath sounds. equal chest rise. CARDIOVASCULAR: RRR. S1, S2. No S4 without murmur ABDOMEN: Distended. Firm to palpation. Umbilical hernia is reducible. MUSCULOSKELETAL: Pulses 2+. 1+ bilateral upper and lower extremity edema. Wound VAC on left upper extremity NEUROLOGICAL: Cranial nerves II through XII grossly intact. Moves upper extremity bilaterally spontaneously to command. Withdrawals bilateral lower extremities. Procedures IVC filter placement 01/25/2017 LP 01/26/2017 Line: Central Venous Catheter Side: Right Location: Internal, Jugular A/P Problem List: (1) Septic shock ICD Code: A41.9 - Sepsis, unspecified organism; R65.21 - Severe sepsis with septic shock Status: Acute (2) Acute respiratory failure ICD Code: J96.00 - Acute respiratory failure, unspecified whether with hypoxia or hypercapnia Status: Acute (3) Thrombophlebitis arm ICD Code: I80.8 - Phlebitis and thrombophlebitis of other sites (4) Aspiration pneumonia ICD Code: J69.0 - Pneumonitis due to inhalation of food and vomit Status: Acute (5) Atelectasis of left lung ICD Code: J98.11 - Atelectasis Status: Acute (6) Quadriparesis ICD Code: G82.50 - Quadriplegia, unspecified Status: Acute (7) DVT (deep venous thrombosis) ICD Code: I82.409 - Acute embolism and thrombosis of unspecified deep veins of unspecified lower extremity (8) Altered mental status ICD Code: R41.82 - Altered mental status, unspecified Status: Acute (9) CKD (chronic kidney disease) stage 3, GFR 30-59 ml/min ICD Code: N18.3 - Chronic kidney disease, stage 3 (moderate) Status: Chronic (10) Acute renal failure ICD Code: N17.9 - Acute kidney failure, unspecified Status: Acute (11) Diabetes mellitus ICD Code: E11.9 - Type 2 diabetes mellitus without complications Status: Chronic (12) Distal end of ulna fracture, closed ICD Code: S52.609A - Unspecified fracture of lower end of unspecified ulna, initial encounter for closed fracture Status: Acute (13) Gout ICD Code: M10.9 - Gout, unspecified Status: Chronic Assessment and Plan NEURO/PSYCH: Acute metabolic encephalopathy- persistent Quadriparesis secondary to suspected transverse myelitis Recurrent falls Pain secondary to retroperitoneal hematoma. Patient is currently on propofol at 40 mcg/kg minutes/fentanyl drip at 125 mcg an hour for sedation/analgesia while intubated Goal of RA SS -2 Suspected transverse myelitis. Received methylprednisolone 250 mg IV every 6 hours 01/27-02/02, started back on hydrocortisone 02/21/17, initially tapering to 50 mg IV every 8 hours starting received 1 dose at 2100 prior to becoming hypotensive. weaning hydrocortisone taper and will discontinue 03/09 LP 01/26 and 02/01. CSF culture negative 01/26, 02/01 Oligoclonal bands negative. CSF/serum IgG index is not elevated. VDRL nonreactive. Cryptococcal antigen negative. Brain MRI 01/23 no acute stroke. Few scattered lacunar infarcts of the brainstem. Moderate chronic white matter changes. MRI cervical/thoracic spine- mild spinal stenosis C3/C4 to C6/C7. No cord compression. RPR negative Neurology has been following, Dr. Crenshaw. Repeat CT brain 02/10 - negative Continue PT/OT RESP: Acute hypoxemic respiratory failure Healthcare associated pneumonia/Aspiration Pneumonia Right-sided chest tube placed for pleural effusion. [facility]29 Ventilator bundle Albuterol/ipratropium aerosols every 6 hours with albuterol aerosols every 2 hours prn VQ scan 02/10 low probability for PE. CT chest 02/10 - left lower lobe collapse and consolidation. CT chest 02/27 revealed right greater than left pleural effusions. Extubated 02/23. Intubated 02/28 Right-sided chest tube placement 02/28 clinical documentation spec, removed 03/05. unable to wean successfully due to volume overload and multiple organ failure. will attempt volume removal today in an attempt to assist with weaning from mechanical ventilation. if no improvements soon, will need to consider tracheostomy. CV: Severe sepsis - resolved. Systolic heart failure likely chronic with ejection fraction 20-25% Hyperlipidemia History of hypertension Mild TR Elevated troponin likely type II demand ischemia Currently off all vasopressors Holding metoprolol and amlodipine in light of recent hypotension. atorvastatin 10 mg by mouth daily for dyslipidemia. Troponin 0.[address]-T changes. Patient denying chest discomfort. 2-D echocardiogram 01/11 revealed EF 20-25%. Mild TR. Pulmonary arterial pressures were normal around 20 Troponin 6.55 on 03/02 and trending downward. Likely will need stress test of heart once stable. Cannot anticoagulate due to retroperitoneal hematoma the present time GI: Large right retroperitoneal hematoma Erosive esophagitis Adematous/hyperplastic colon polyps Severe acute protein calorie malnutrition Nausea/vomiting - resolved. Diarrhea Gastritis Diverticulosis Internal and external hemorrhoids Hiatal hernia Elevated lipase Hypernatremia Hypokalemia 02/27 CT chest/abdomen and pelvis - 9.4 x 7.5 renal and 16 x 12 cm right psoas muscle hematoma. Fluid around liver and spleen. Right-sided nephrolithiasis CTA abdomen 02/28 - possible blushing around iliac/lumbar vessels Discussed with IR. s/p attempted embolization CT abdomen and pelvis 02/10 atrophic left kidney. Bilateral inguinal hernias fat- containing. Nonobstructing 12 mm right kidney stone repeat CT abd/pelvis did not show evidence of obstruction. patient clinically has been having diarrhea (c. diff negative 02/19). also with nausea/vomiting of unclear etiology. EGD/Colonoscopy-02/22/17 showed gastritis esophagitis, hiatal hernia, diverticulosis and multiple polyps in descending colon and sigmoid which were snared biopsied. Biopsy pending Dr. Lewis consulted for intervention if needed for elevated IAP. will continue to check as needed Continue on tube feeds with Nepro 40 cc an hour today. Lansoprazole for GI prophylaxis FEN/RENAL: Acute kidney injury in the setting of Chronic kidney disease stage 3-4 History of uric acid kidney stones with prior stent BPH Nonfunctioning left kidney Acute intravascular volume overload Hypo-magnesium Sloan placed due to urinary retention and worsening creatinine. Monitor intake and output q1hr. Monitor electrolytes. RIOS/SPEP negative. 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 Recommended nephrostomy tube if obstruction Nephrology consulted may need ultrafiltration again today for volume removal. Due to acute illness holding tamsulosin 0.4 mg by mouth daily for BPH Free water 200 mL q4h for hypernatremia ICU electrolyte replacement protocol daily BMP 1 g mag sulfate. Recheck in a.m. ID: Septic shock- resolved. Abscess and Suppurative thrombophlebitis left upper extremity MSSA bacteremia Klebsiella UTI ESBL positive Acute aspiration pneumonia/HCAP Broad-spectrum antibiotics with oxacillin 2 g IV every 4 hours till March 26 initially. This is been held in light of current change to regimen to fluconazole, ertapenem and vancomycin intermittently dosed per ID Blood cultures 2, UA ESBL positive Klebsiella UTI Repeat blood cultures 2 and sputum 03/08 pending. Urine negative. ID on board. HEME: Acute blood loss anemia DVT, bilateral posterior tibial vein, IVC filter Septic thrombophlebitis with occlusive thrombus mid cephalic and basilic vein side Received 10 PRBC, 14 FFP, 2 platelets, 1 cryo-02/28 Past 24 hours received 3 units PRBCs Serial hemoglobins every 6 hours Recheck coags Ultrasound 01/23/17 - Bilateral lower extremity with occlusive posterior tibial vein DVTs. Heparin was initially started for DVT but was placed on hold due to LP with suspected traumatic tap. Currently holding full anticoagulation with enoxaparin 100 mg IV twice a day due to anemia as of 02/26 IVC filter was placed 01/25/17. Ultrasound LUE 02/10 occlusive thrombus mid cephalic vein, basilic vein.s. Transfuse 3 units PRBCs 02/27 Transfuse 2 units PRBCs 03/01. ENDO: Diabetes mellitus Hypoglycemia History of prior adrenal insufficiency with shock Gout EGD colonoscopy completed 02/22. gastritis and esophagitis, colon polyps Started Hydrocortisone 100 mg every 8 hours 02/21/17 (Recent high dose steroids use now hypotensive, hypoglycemic), start steroid taper. Currently at 50 twice a day Accu-Cheks to maintain euglycemia Novulin R every 4 hours. Insulin detemir 5 units twice a day. No slight scale past 24 hours MSK: Right distal ulna fracture. Dr. Nathan with orthopedics has evaluated and recommended nonoperative management. Right wrist splint in place. PROPH: Lansoprazole 30 mg twice a day twice a day for stress ulcer prophylaxis. Has IVC filter. Therapeutic enoxaparin currently on hold for retroperitoneal hematoma ACCESS: right IJ CVL placed 03/03. A left IJ hemodialysis catheter placed 03/01. Critical care time 35 minutes Problem Qualifiers (1) Aspiration pneumonia: (2) DVT (deep venous thrombosis): Qualified Codes: I82.443 - Acute embolism and thrombosis of tibial vein, bilateral (3) Acute renal failure: Qualified Codes: N17.9 - Acute kidney failure, unspecified (4) Diabetes mellitus: (5) Gout: Janes Aguiar MD Mar 09, 2017 10:15
[2017-03-09] MEDS: MAGNESIUM SULFATE 1 GM PREMIX 100 ML IV SCH ×2 (11:45→12:51)
[2017-03-09] MEDS: PROPOFOL 1000 MG/100 ML INJ 100 ML IV PRN ×2 (11:46→18:07)
[2017-03-09] MEDS: SODIUM CHLOR 0.9% 1000 ML INJ 1,000 ML IV SCH (12:52)
--- NOTE | 2017-03-09 13:27 | HHI.NPPN ---
Subjective History of Present Illness 61-year-old with history of urinary stone Additional Remarks Patient remain intubated open eyes Review of Systems General Constitutional: Fatigue Objective Data Data Vital Signs Date Time Temp Pulse Resp B/P (MAP) Pulse Ox O2 Delivery O2 Flow Rate FiO2 03/09/17 12:02 97 35 03/09/17 12:00 122 03/09/17 12:00 30 03/09/17 12:00 100.1 120 14 146/78 (100) 95 03/09/17 10:00 120 03/09/17 08:53 94 35 03/09/17 08:00 101.0 115 16 99/64 (76) 95 03/09/17 08:00 30 03/09/17 08:00 118 03/09/17 07:00 99 Mechanical Ventilator 35 03/09/17 06:00 120 03/09/17 04:30 95 35 03/09/17 04:00 120 03/09/17 04:00 98.9 120 16 99/61 (74) 96 03/09/17 04:00 30 03/09/17 02:00 115 03/09/17 01:17 100 35 03/09/17 00:00 30 03/09/17 00:00 98.4 121 16 149/71 (97) 98 03/09/17 00:00 121 03/08/17 23:00 100 35 03/08/17 22:00 112 03/08/17 20:20 120 90/64 03/08/17 20:00 99.9 121 16 94/61 (72) 96 03/08/17 20:00 30 03/08/17 20:00 121 03/08/17 19:44 99 35 03/08/17 19:00 97 Mechanical Ventilator 35 03/08/17 18:00 126 03/08/17 16:00 100.3 127 16 121/72 (88) 96 03/08/17 16:00 30 03/08/17 16:00 100 03/08/17 14:48 97 35 03/08/17 14:00 126 -: 03/09/17 0546 03/09/17 0546 Microbiology 03/08/17 Aerobic Blood Culture - Preliminary, Resulted NO GROWTH IN 1 DAY 03/08/17 Anaerobic Blood Culture - Preliminary, Resulted NO GROWTH IN 1 DAY 03/08/17 Aerobic Blood Culture - Preliminary, Resulted NO GROWTH IN 1 DAY 03/08/17 Anaerobic Blood Culture - Preliminary, Resulted NO GROWTH IN 1 DAY 03/08/17 Gram Stain - Final, Resulted 03/08/17 Sputum Culture - Preliminary, Resulted IMMATURE GROWTH - REINCUBATE Physical Exam General Appearance: Pale Eyes Eye Exam: Pupils Equal Throat Throat Exam: Oral Mucosa [place] & Moist Neck Neck Exam: Neck Supple Pulmonary Resp Exam: Crackles, Rhonchi, Decreased Bases, Diminished Breath Sounds Cardiology CV Exam: Normal Sinus Rhythm, Tachycardia Gastrointestinal/Abdomen GI Exam: Non-Tender, Distended Extremeties Extremities Exam: Pitting Edema, Dependent Edema Assessment/Plan Problem List: (1) Acute renal failure ICD Codes: N17.9 - Acute kidney failure, unspecified Status: Acute Plan: Patient developed Hypotension,sepsis staph aureus respiratory failure and increase WBC. Had aspiration pneumonia, developed sepsis with ARF again creatinine declined slightly post hydration he also had retroperitoneal bleed Elevated intra abdominal pressures - improved now. 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 remains edematous/anasarca On hemofiltration will do one tomorrow as still has volume issues weight declined better follow BMP (2) CKD (chronic kidney disease) stage 3, GFR 30-59 ml/min ICD Codes: N18.3 - Chronic kidney disease, stage 3 (moderate) Status: Chronic Plan: Ultrasound revealed chronic kidney disease there is no kidney stones (3) Diabetes ICD Codes: E11.9 - Type 2 diabetes mellitus without complications Plan: Continue to monitor (4) Distal end of ulna fracture, closed ICD Codes: S52.609A - Unspecified fracture of lower end of unspecified ulna, initial encounter for closed fracture Status: Acute Plan: Orthopedic is following Problem Qualifiers (1) Acute renal failure: Qualified Codes: N17.9 - Acute kidney failure, unspecified Laura Liao MD Mar 09, 2017 13:27
[2017-03-09] MEDS: fentaNYL DRIP 250 ML IV PRN (17:32)
[2017-03-09] MEDS: ERTAPENEM INJ 1,000 MG in SODIUM CHLORIDE 0.9% INJ 100 ML IV SCH (20:38)
[2017-03-09] MEDS: ATORVASTATIN 10 MG TAB PO SCH (21:23)
[2017-03-10] VITALS (17 sets, daily range): BP systolic 106–153; BP diastolic 63–83; PULSE 88–115; RESP 12–16; TEMP 98.7–99.5; O2SAT 97–100
[2017-03-10] MEDS: oxyCODONE HCL ORAL CONC 5 MG/0.25 ML SYRINGE PO SCH ×6 (02:20→22:50)
[2017-03-10] MEDS: RESP: ALBUTEROL 2.5 MG/IPRATROPIUM 0.5 MG NEB (SCH) NEB ×4 (03:35→20:47)
[2017-03-10] MEDS: FREE WATER G-TUBE SCH ×6 (03:48→23:54)
[2017-03-10] MEDS: PROPOFOL 1000 MG/100 ML INJ 100 ML IV PRN ×3 (03:52→19:47)
[2017-03-10] MEDS: INSULIN NovoLIN REGULAR SUPPLEMENTAL SCALE SQ SCH ×5 (05:06→19:49)
[2017-03-10] MEDS: METOCLOPRAMIDE HCL 10 MG/2 ML VIAL IV PUSH SCH ×3 (05:07→22:50)
[2017-03-10] MEDS: ARTIFICIAL TEARS OPTH SOLN 15 ML BTL EACH EYE SCH ×3 (05:17→22:50)
[2017-03-10 06:20] LABS: HEMATOCRIT 24.8 % (39.0-51.0); MEAN CELL VOLUME 90.4 FL (80.0-100.0); MEAN CORPUSCULAR HGB CONC 33.2 % (32.0-36.0); PLATELET COUNT 126 TH/MM3 (150-450); RED BLOOD COUNT 2.74 MIL/MM3 (4.50-5.90); RED CELL DISTRIBUTION WIDTH 15.2 % (11.6-17.2); REVIEW FLAG FINAL; WHITE BLOOD COUNT 15.1 TH/MM3 (4.0-11.0)
[2017-03-10 06:45] LABS: BICARBONATE 22.8 MEQ/L (21.0-32.0); POTASSIUM 4.3 MEQ/L (3.5-5.1)
[2017-03-10] MEDS: CHLORHEXIDINE 0.12% (ORAL KIT) 15 ML CUP MT SCH ×2 (07:07→19:47)
[2017-03-10] MEDS: SODIUM CHLORIDE 0.9% FLUSH 10 ML FLUSH IV FLUSH SCH ×3 (09:00→20:02)
[2017-03-10] MEDS: LANSOPRAZOLE SOLUTAB 30 MG TAB NG SCH ×2 (09:33→20:01)
[2017-03-10] MEDS: LACTOBACILLUS ACIDOPHILUS TAB PO SCH ×3 (09:33→17:48)
[2017-03-10] MEDS: HYDROCORTISONE SOD SUCCINATE 100 MG VIAL IV SCH ×2 (09:33→20:01)
[2017-03-10] MEDS: INSULIN DETEMIR 100 UNITS/ML VIAL SQ SCH ×2 (09:34→20:02)
--- NOTE | 2017-03-10 11:48 | HHI.NPPN ---
Subjective History of Present Illness 61-year-old with history of urinary stone Additional Remarks Patient remain intubated and clinically same. Review of Systems General Constitutional: Fatigue Objective Data Data Vital Signs Date Time Temp Pulse Resp B/P (MAP) Pulse Ox O2 Delivery O2 Flow Rate FiO2 03/10/17 10:00 110 03/10/17 09:04 99 35 03/10/17 08:00 99.2 110 16 153/83 (106) 100 03/10/17 08:00 115 03/10/17 08:00 35 03/10/17 07:00 99 Mechanical Ventilator 35 03/10/17 06:00 100 03/10/17 04:25 97 35 03/10/17 04:00 30 03/10/17 04:00 88 03/10/17 04:00 98.8 88 16 107/63 (78) 99 03/10/17 02:00 98 03/10/17 01:15 100 35 03/10/17 00:00 30 03/10/17 00:00 98.7 114 15 123/77 (92) 100 03/10/17 00:00 98 03/10/17 00:00 97 03/09/17 22:00 98 03/09/17 20:00 98.7 97 18 110/67 (81) 100 03/09/17 20:00 97 03/09/17 20:00 30 03/09/17 19:47 100 35 03/09/17 19:00 99 Mechanical Ventilator 35 03/09/17 18:00 112 03/09/17 16:00 99.2 115 12 160/89 (112) 100 03/09/17 16:00 35 03/09/17 16:00 111 03/09/17 15:47 94 35 03/09/17 14:00 111 03/09/17 12:02 97 35 03/09/17 12:00 122 03/09/17 12:00 35 03/09/17 12:00 100.1 120 14 146/78 (100) 95 -: 03/10/17 0557 03/10/17 0557 Physical Exam General Appearance: Pale Eyes Eye Exam: Pupils Equal Throat Throat Exam: Oral Mucosa [place] & Moist Neck Neck Exam: Neck Supple Pulmonary Resp Exam: Crackles, Rhonchi, Decreased Bases, Diminished Breath Sounds Cardiology CV Exam: Normal Sinus Rhythm, Tachycardia Gastrointestinal/Abdomen GI Exam: Non-Tender, Distended Extremeties Extremities Exam: Pitting Edema, Dependent Edema Assessment/Plan Problem List: (1) Acute renal failure ICD Codes: N17.9 - Acute kidney failure, unspecified Status: Acute Plan: Patient developed Hypotension,sepsis staph aureus respiratory failure and increase WBC. Had aspiration pneumonia, developed sepsis with ARF again creatinine declined slightly post hydration he also had retroperitoneal bleed Elevated intra abdominal pressures - improved now. 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 Also to start Lasix. Follow the urine out put and BMP. (2) CKD (chronic kidney disease) stage 3, GFR 30-59 ml/min ICD Codes: N18.3 - Chronic kidney disease, stage 3 (moderate) Status: Chronic Plan: Ultrasound revealed chronic kidney disease there is no kidney stones (3) Diabetes ICD Codes: E11.9 - Type 2 diabetes mellitus without complications Plan: Continue to monitor (4) Distal end of ulna fracture, closed ICD Codes: S52.609A - Unspecified fracture of lower end of unspecified ulna, initial encounter for closed fracture Status: Acute Plan: Orthopedic is following Problem Qualifiers (1) Acute renal failure: Qualified Codes: N17.9 - Acute kidney failure, unspecified Aicha Leonard MD Mar 10, 2017 11:48
[2017-03-10] MEDS: fentaNYL DRIP 250 ML IV PRN (12:33)
[2017-03-10] MEDS: SODIUM CHLOR 0.9% 1000 ML INJ 1,000 ML IV SCH (12:35)
--- NOTE | 2017-03-10 15:26 | HHI.CCPN ---
Subjective Remarks/Hospital Course Date of admission: 01/22 Date of critical care medicine consult 02/10 due to acute hypoxemic respiratory failure requiring emergent intubation 62-year-old male with a past medical history of hypertension, hyperlipidemia, diabetes mellitus, gout, uric acid kidney stones, kidney disease of unknown stage who originally presented to [facility] emergency department on 01/22 after a fall in which he sustained a right distal ulna fracture. He had been experiencing a gradual primarily lower extremity weakness as well as upper extremity weakness that was progressive. Neurology consult was obtained. MRI revealed no acute stroke. He had multifocal white matter changes. Tiny lacunar infarcts of the brainstem. Lumbar MRI report states L4-L5 disc protrusion with cetnral canal stenosis. Dr. Blackwell evaluated and states no cord compression on MRI C/T spine and recommended nonoperative management. Symptoms were felt to be consistent with transverse myelitis and he underwent Solumedrol 250 mg IV q6 hours 01/27-02/02. He also was found to have occlusive thrombus in the bilateral posterior tibial veins. Heparin was being avoided because he had traumatic lumbar puncture on 01/26 and 02/01. IVC filter was placed 01/25. He was undergoing physical therapy, reportedly making some improvements with plan to eventually discharged home with his son (max assist standing, and bed to chair per PT note). Apparently he had some vomiting the evening of 02/09 and additional vomiting on 02/10. He had a fever 102.8 on 02/09. Last recorded bowel movement was 02/03. Tonight he had acute onset of severe hypoxemia and respiratory distress. [facility] called and he was brought emergently to [facility] where his sats were 64% on 100% nonrebreather with mean arterial pressure 44. He was emergently intubated, CVL and art line placed. He is in septic shock. SUBJ: 02/11: Patient remains intubated sedated, critically ill. FiO2 reduced to 80% after increasing PEEP to 12. In severe septic shock Levophed at 16 mcg/m, vasopressin at 0.04 international units. D/W vascular surgery Dr. Enciso. He performed bedside Left upper extremity incision and debridement and excision of septic cephalic vein. 02/12: Remains intubated sedated profoundly septic, in shock on vasopressin and 7 mcg/min Levophed. FiO2 has improved to 45%, WBC count remains elevated with 20 ,000 white count significant left shift. Slight improvement in creatinine 2.9 urine output 750 ml 24 hours. 2-D echo shows LV ejection fraction 20-25%, no vegetation reported. Blood cultures 4 staph aureus. Wound culture pending 02/13: Remains critically ill but stable to improving. WBC count is down to 16, creatinine improving to 2.36. Off all pressors. Urine output also improving. 1.5L in 24 hours 02/14: Extubated 02/13. Tolerating well. WBC now down to 12.8. Creat improving 2.3 to 2. UO 3.4L. remains off all pressors. Was started on Precedex yesterday night for agitation, currently on 0.5 g per KG per hour. Chest x-ray shows left more than right air space disease 02/20/17 Re consult: 62-year-old male who was originally admitted for lower extremity weakness and found to have what was thought to be possible transverse myelitis. His hospital course his included a healthcare associated pneumonia, septic thrombophlebitis, DVT. He was most recently in the hospital floor where he had significant nausea and vomiting and diarrhea. His C. difficile test was recently negative. However, he has experienced worsening acute on chronic renal failure, hypotension, tachycardia, and severe hypoxemia. He did have a bout of vomiting earlier today, and his hospitalist attending suspects that he may have aspirated. He arrives by rapid response to the ICU with a nonrebreather in place in severe respiratory distress with SPO2 of 85%. I emergently intubate the patient, see separate procedure note for details. At this point the patient was hypotensive and tachycardic. He does have a history of an EF of 20%, however clinically he appears in florid septic shock. I placed central line and arterial line started vasopressors and gentle IV fluid resuscitation with 1 L of LR. Patient today was empirically broadened to vancomycin and Zosyn from his oxacillin which was initially treating MSSA bacteremia. He is recultured. Critical-care medicine is consulted to evaluate and manage his worsening multiorgan system failure and decompensated septic shock 02/21: Patient remains intubated sedated. Becomes anxious tachypnea on sedation lightening. Chest x-ray shows mild left lower lobe infiltrate. WBC count is slightly improved today from 23.2 t0 21. C Diff negative. UO adequate, creat slightly worsening. 1.57 today 02/22: Remains intubated sedated tolerated CPAP yesterday, plan is for EGD/ Colonscopy. WBC count back to normal. UO adequate. Creat stable 02/23: Tolerating CPAP trials following commands. Will do a spontaneous breathing trials. Status post EGD colonoscopy yesterday -Gastritis, esophagitis. Diverticulosis and multiple polyps. Urine output adequate but creatinine increasing to 1.7 with patient requiring multiple straight catheterization. We'll reinsert Sloan. 02/24: Breathing comfortably 24 hours after extubation. Protects airway well. 02/25: Excoriate bottom, will place rectal FMS. Start pureed diet. 02/26: Afebrile. Complaining of nausea and vomiting this afternoon. Increased stool output. Continue potassium replacement today. 02/27: 10 PM overnight, acutely hypotensive. Received 3 units PRBCs. Antibiotic coverage broadened to piperacillin/tazobactam, cortisol and 1 dose of vancomycin. Oxacillin drip currently on hold. Symptomatically, patient continues to vague abdominal pain/nausea vomiting which is unchanged for the past several days. Lipase elevated yesterday. Lactic acid normal. Troponin normal. Urinary retention after removal of Sloan. Straight catheter 1300. Cc 02/28: New diagnosis large retroperitoneal hematoma. Received 10 PRBC, 14 FFP, 2 platelets, 1 cryo-, 6 g calcium chloride, 2 is magnesium sulfate and 4 mg Bumex. CTA abdomen revealed possible arterial bleeds iliac, lumbar. Patient is currently on norepinephrine and epinephrine drips and possible need right nephrostomy tube placement due to large hematoma compressing ureter. Intra-abdominal bladder pressures are currently 13 03/01: Afebrile. Received 25 g albumin and 1 unit PRBCs overnight. Intra- abdominal bladder pressures currently 19. Currently on 3 micrograms per minute of norepinephrine. [id number] 1 out of 4 on 4 mics grams per kilogram per minute of cisatracurium. 03/02: Slightly hypothermic overnight. Hemoglobin appears to have stabilized. Troponin bump overnight likely secondary to demand ischemia from hypotension. Hemodynamically stable off all vasopressors. 03/03: Received 1 PRBCs overnight. 3 units currently. Off all vasopressors. Likely rebleeding. Stool is dark. 03/04: Remains unstable. Ventilator dependent. 03/05: afebrile. hgb stable. 03/06: bumex drip started overnight. good uop after bumex initiated. still grossly volume overloaded. Cr downtrending. more awake with transition to propofol. still too volume overloaded to tolerate extubation. hgb stable. 03/07: Afebrile. Tolerating tube feeds at goal with Nepro. Positive BM. On low-dose fentanyl and propofol drips. Potassium currently being replaced. 03/08: Eyes will open on ventilator. Afebrile. Tolerating tube feeding. Failed PSV trial yesterday due to apnea. 03/09: Following commands. Tmax 101. Tolerating tube feeding. One hour PSV trial yesterday. Currently tolerating well so far today 1.5 hours Subjective 03/10: Low-grade temperatures. Tolerating PSV trial 10 hours yesterday. Currently at 5/5 at 35%. We'll probably attempt extubation a.m. after hemodialysis. Objective Vital Signs Date Time Temp Pulse Resp B/P (MAP) Pulse Ox O2 Delivery O2 Flow Rate FiO2 03/10/17 14:00 98 03/10/17 12:00 99.5 15 113/72 (86) 100 03/10/17 12:00 35 03/10/17 07:00 Mechanical Ventilator Intake and Output 03/10/17 03/10/17 03/11/17 08:00 16:00 00:00 Intake Total 985 ml Output Total 550 ml Balance 435 ml Result Diagram: 03/10/17 0557 03/10/17 0557 Other Results Microbiology Date/Time Source Procedure Growth Status 03/08/17 19:49 Blood Peripheral Aerobic Blood Culture - Preliminary NO GROWTH IN 2 DAYS Resulted 03/08/17 19:49 Blood Peripheral Anaerobic Blood Culture - Preliminary NO GROWTH IN 2 DAYS Resulted 02/01/17 09:55 Cerebral Spinal Fluid Lumbar Puncture Fungal Smear - Final NO FUNGAL ELEMENTS SEEN. Complete 02/01/17 09:55 Cerebral Spinal Fluid Lumbar Puncture Fungal Culture - Final NO GROWTH IN 4 WEEKS Complete 02/17/17 05:55 Stool Stool Stool Occult Blood (GREGORY) - Final HEMOCCULT POSITIVE Complete 03/08/17 23:00 Sputum Endotracheal Gram Stain - Final Resulted 03/08/17 23:00 Sputum Culture - Preliminary Gram Negative Holger Resulted 02/27/17 08:32 Urine Catheterized Urine Urine Culture - Final Klebsiella Pneumoniae Esbl Pos Complete 02/11/17 09:10 Abscess Arm Acid Fast Stain - Final NO ACID FAST BACILLI SEEN Resulted 02/11/17 09:10 Abscess Arm Mycobacterial Culture - Preliminary NO GROWTH IN 3 WEEKS Resulted Imaging Last Impressions Chest X-Ray 03/09/17 0600 Signed Impressions: Service Date/Time: Thursday, March 09, 2017 05:53 - CONCLUSION: 1. Improving bibasilar densities. Armando Dodd MD Aortography 02/28/17 0000 Signed Impressions: Service Date/Time: Tuesday, February 28, 2017 08:01 - CONCLUSION: 1. Active hemorrhage from distal right lateral sacral and iliolumbar branches successfully coil and Gelfoam embolized, as above. Juan Bhakta MD Abdomen/Pelvis CT 02/28/17 0000 Signed Impressions: Service Date/Time: Tuesday, February 28, 2017 06:51 - CONCLUSION: 1. The right retroperitoneal hematoma has increased in size, as above. There are 2 serpiginous arterially enhancing structures visualized, one in the right psoas muscle and another extending into the hematoma at the right iliac fossa. These could represent sites of continued active bleeding. 2. Stable moderate size left and small right pleural effusion with associated compressive atelectasis. 3. Stable small volume of free fluid in the abdomen and pelvis. There is also anasarca. The findings concerning the retroperitoneal hematoma were discussed with Dr. Aguiar via telephone at approximately 7: 10 AM on 02/28/2017. Angelo Allen MD Chest CT 02/27/17 0000 Signed Impressions: Service Date/Time: Monday, February 27, 2017 18:12 - CONCLUSION: 1. Bilateral pleural effusions with bibasilar atelectasis, left greater than right. Tom Sanchez MD Abdomen X-Ray 02/26/17 0000 Signed Impressions: Service Date/Time: Sunday, February 26, 2017 14:52 - CONCLUSION: 1. Nonobstructive bowel gas pattern. Juan Bhakta MD Upper Extremity Ultrasound 02/10/17 0000 Signed Impressions: Service Date/Time: Friday, February 10, 2017 18:46 - CONCLUSION: Occlusive thrombus in the cephalic and basilic veins. Benjamin Person MD Lung Scan-VQ Nuclear Medicine 02/10/17 Signed Impressions: Service Date/Time: Friday, February 10, 2017 22:17 - CONCLUSION: Low probability pulmonary embolism. Candido Patton MD Head CT 02/10/17 Signed Impressions: Service Date/Time: Friday, February 10, 2017 23:51 - CONCLUSION: Negative noncontrast CT brain. Candido Patton MD Wrist X-Ray 02/06/17 Signed Impressions: Service Date/Time: Monday, February 06, 2017 12:50 - CONCLUSION: Minimally displaced distal radius and ulnar fractures. Armando Dodd MD Lumbar Puncture Fluoroscopy 02/01/17 Signed Impressions: Service Date/Time: January 09:35 - CONCLUSION: Uncomplicated fluoroscopically guided lumbar puncture. CSF was clear. Nabeel Peralta MD Head Magnetic Resonance Angiography 01/27/17 Signed Impressions: Service Date/Time: Friday, January 27, 2017 10:33 - CONCLUSION: No intracranial vascular abnormality is identified. There is no aneurysm visualized. Angelo Allen MD IVC Filter Placement X-Ray 01/25/17 Signed Impressions: Service Date/Time: January 10:29 - CONCLUSION: Uncomplicated inferior vena cava filter placement as above. Yung Fowler MD Thoracic Spine MRI 01/24/17 Signed Impressions: Service Date/Time: Tuesday, January 24, 2017 22:29 - CONCLUSION: 1. Mild degenerative spondylosis most prominently at T11-L1 with slight effacement of the anterior thecal sac and left lateral recess. No significant neural foraminal stenosis. 2. No acute fracture. Juan Bhakta MD Renal Ultrasound 01/23/17 Signed Impressions: Service Date/Time: Monday, January 23, 2017 08:53 - CONCLUSION: 1. Evidence of chronic parenchymal disease of both kidneys. No obstructive uropathy or other acute abnormality demonstrated. 2. Trace ascites, nonspecific. Angelo Garrido MD Lumbar Spine MRI 01/23/17 Signed Impressions: Service Date/Time: Monday, January 23, 2017 17:01 - CONCLUSION: 1. At L4-5 is a broad-based disc protrusion with severe central canal and lateral recess stenosis and flattening of the exiting right L4 nerve root. 2. L5-S1 there is a disc protrusion and moderate stenosis with flattening of the exiting L5 nerve roots bilaterally. 3. At L3-4 there is a moderate to severe central stenosis and lateral recess stenosis with mild foraminal stenosis. 4. No acute fracture or spondylolisthesis. Trace Holloway MD Lower Extremity Ultrasound 01/23/17 Signed Impressions: Service Date/Time: Monday, January 23, 2017 09:53 - CONCLUSION: Bilateral focal lower extremity DVT involving the posterior tibial veins. Angelo Garrido MD Cervical Spine MRI 01/23/17 Signed Impressions: Service Date/Time: Monday, January 23, 2017 17:01 - CONCLUSION: 1. Multilevel cervical spine degenerative changes as above. 2. Mild degrees of spinal stenosis at C3/C4-C6/C7. No cord compression or cord signal abnormality. 3. Age indeterminate left paracentral/foraminal disc protrusion at C6/C7. 4. Multilevel foraminal stenosis, most severe on the left at C6/C7. Please see individual levels above. 5. No fracture or subluxation of the cervical spine. Angelo Garrido MD Brain MRI 01/23/17 Signed Impressions: Service Date/Time: Monday, January 23, 2017 17:01 - CONCLUSION: 1. No acute stroke or other acute intracranial abnormality demonstrated. 2. Moderate severity chronic white matter changes, nonspecific but most likely related to chronic small vessel disease. 3. Few scattered tiny lacunar infarcts of the brainstem. 4. Given the findings are not entirely specific, clinical evaluation for possible multiple sclerosis recommended. Angelo Garrido MD Knee X-Ray 01/22/[id number] Signed Impressions: Service Date/Time: Sunday, January 22, 2017 21:17 - CONCLUSION: 1. Evidence of moderate to large joint effusion. 2. No acute fracture or malalignment. 3. Mild 3 compartment osteoarthritic change. Benjamin Person MD Hip and Pelvis X-Ray [id number]/22/[id number] Signed Impressions: Service Date/Time: Sunday, January 22, 2017 21:10 - CONCLUSION: 1. Mild to moderate degenerative change of both hips with no acute fracture or malalignment. There is flattening and remodeling of the right humeral head. Benjamin Person MD Objective Remarks GENERAL: 62-year-old male, critically ill currently orotracheally intubated HEENT: Normocephalic. Atraumatic. Pupils equal, round, reactive, conjugate by 3 mm bilaterally. NECK: Trachea is midline. Obese. No JVD or thyromegaly right IJ TLC, left IJ hemodialysis catheter clean dry and intact CHEST: Diminished breath sounds. equal chest rise. CARDIOVASCULAR: RRR. S1, S2. No S4 without murmur ABDOMEN distended. No rigidity.. Umbilical hernia is reducible. : Positive scrotal edema MUSCULOSKELETAL: Pulses 2+. 1+ bilateral upper and lower extremity edema. Wound VAC on left upper extremity NEUROLOGICAL: Cranial nerves II through XII grossly intact. Moves upper extremity bilaterally spontaneously to command. Withdrawals bilateral lower extremities. Procedures IVC filter placement 01/25/2017 LP 01/26/2017 Urinary Catheter: Yes Sloan insert reason: Prolonged Immobilization Vascular Central Line Catheter: Yes Assessment to: Continue Line: Central Venous Catheter Side: Right Location: Internal, Jugular A/P Problem List: (1) Septic shock ICD Code: A41.9 - Sepsis, unspecified organism; R65.21 - Severe sepsis with septic shock Status: Acute (2) Acute respiratory failure ICD Code: J96.00 - Acute respiratory failure, unspecified whether with hypoxia or hypercapnia Status: Acute (3) Thrombophlebitis arm ICD Code: I80.8 - Phlebitis and thrombophlebitis of other sites (4) Aspiration pneumonia ICD Code: J69.0 - Pneumonitis due to inhalation of food and vomit Status: Acute (5) Atelectasis of left lung ICD Code: J98.11 - Atelectasis Status: Acute (6) Quadriparesis ICD Code: G82.50 - Quadriplegia, unspecified Status: Acute (7) DVT (deep venous thrombosis) ICD Code: I82.409 - Acute embolism and thrombosis of unspecified deep veins of unspecified lower extremity (8) Altered mental status ICD Code: R41.82 - Altered mental status, unspecified Status: Acute (9) CKD (chronic kidney disease) stage 3, GFR 30-59 ml/min ICD Code: N18.3 - Chronic kidney disease, stage 3 (moderate) Status: Chronic (10) Acute renal failure ICD Code: N17.9 - Acute kidney failure, unspecified Status: Acute (11) Diabetes mellitus ICD Code: E11.9 - Type 2 diabetes mellitus without complications Status: Chronic (12) Distal end of ulna fracture, closed ICD Code: S52.609A - Unspecified fracture of lower end of unspecified ulna, initial encounter for closed fracture Status: Acute (13) Gout ICD Code: M10.9 - Gout, unspecified Status: Chronic Assessment and Plan NEURO/PSYCH: Acute metabolic encephalopathy- persistent Quadriparesis secondary to suspected transverse myelitis Recurrent falls Pain secondary to retroperitoneal hematoma. Patient is currently on propofol at 40 mcg/kg minutes/fentanyl drip at 125 mcg an hour for sedation/analgesia while intubated Goal of RA SS -2 Suspected transverse myelitis. Received methylprednisolone 250 mg IV every 6 hours 01/27-02/02, started back on hydrocortisone 02/21/17, initially tapering to 50 mg IV every 8 hours starting received 1 dose at 2100 prior to becoming hypotensive. weaning hydrocortisone taper and will discontinue 03/09 LP 01/26 and 02/01. CSF culture negative 01/26, 02/01 Oligoclonal bands negative. CSF/serum IgG index is not elevated. VDRL nonreactive. Cryptococcal antigen negative. Brain MRI 01/23 no acute stroke. Few scattered lacunar infarcts of the brainstem. Moderate chronic white matter changes. MRI cervical/thoracic spine- mild spinal stenosis C3/C4 to C6/C7. No cord compression. RPR negative Neurology has been following, Dr. Crenshaw. Repeat CT brain 02/10 - negative Continue PT/OT RESP: Acute hypoxemic respiratory failure Healthcare associated pneumonia/Aspiration Pneumonia Right-sided chest tube placed for pleural effusion. [facility] 16/05/25/29 Ventilator bundle Albuterol/ipratropium aerosols every 6 hours with albuterol aerosols every 2 hours prn VQ scan 02/10 low probability for PE. CT chest 02/10 - left lower lobe collapse and consolidation. CT chest 02/27 revealed right greater than left pleural effusions. Extubated 02/23. 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 unable to wean successfully due to volume overload and multiple organ failure. will attempt volume removal today in an attempt to assist with weaning from mechanical ventilation. if no improvements soon, will need to consider tracheostomy. CV: Severe sepsis - resolved. Systolic heart failure likely chronic with ejection fraction 20-25% Hyperlipidemia History of hypertension Mild TR Elevated troponin likely type II demand ischemia Currently off all vasopressors Holding metoprolol and amlodipine in light of recent hypotension. atorvastatin 10 mg by mouth daily for dyslipidemia. Troponin 0.[address]-T changes. Patient denying chest discomfort. 2-D echocardiogram 01/11 revealed EF 20-25%. Mild TR. Pulmonary arterial pressures were normal around 20 Troponin 6.55 on 03/02 and trending downward. Likely will need stress test of heart once stable. Cannot anticoagulate due to retroperitoneal hematoma the present time GI: Large right retroperitoneal hematoma Erosive esophagitis Adematous/hyperplastic colon polyps Severe acute protein calorie malnutrition Nausea/vomiting - resolved. Diarrhea Gastritis Diverticulosis Internal and external hemorrhoids Hiatal hernia Elevated lipase Hypernatremia Hypokalemia 02/27 CT chest/abdomen and pelvis - 9.4 x 7.5 renal and 16 x 12 cm right psoas muscle hematoma. Fluid around liver and spleen. Right-sided nephrolithiasis CTA abdomen 02/28 - possible blushing around iliac/lumbar vessels Discussed with IR. s/p attempted embolization CT abdomen and pelvis 02/10 atrophic left kidney. Bilateral inguinal hernias fat- containing. Nonobstructing 12 mm right kidney stone repeat CT abd/pelvis did not show evidence of obstruction. patient clinically has been having diarrhea (c. diff negative 02/19). also with nausea/vomiting of unclear etiology. EGD/Colonoscopy-02/22/17 showed gastritis esophagitis, hiatal hernia, diverticulosis and multiple polyps in descending colon and sigmoid which were snared biopsied. Biopsy pending Dr. Lewis consulted for intervention if needed for elevated IAP. will continue to check as needed Continue on tube feeds with Nepro 40 cc an hour today. Lansoprazole for GI prophylaxis FEN/RENAL: Acute kidney injury in the setting of Chronic kidney disease stage 3-4 History of uric acid kidney stones with prior stent BPH Nonfunctioning left kidney Acute intravascular volume overload Hypo-magnesium Sloan placed due to urinary retention and worsening creatinine. Monitor intake and output q1hr. Monitor electrolytes. RIOS/SPEP negative. 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 Recommended nephrostomy tube if obstruction Nephrology consulted may need ultrafiltration again today for volume removal. Due to acute illness holding tamsulosin 0.4 mg by mouth daily for BPH Free water 200 mL q4h for hypernatremia ICU electrolyte replacement protocol daily BMP 1 g mag sulfate. Recheck in a.m. ID: Septic shock- resolved. Abscess and Suppurative thrombophlebitis left upper extremity MSSA bacteremia Klebsiella UTI ESBL positive Acute aspiration pneumonia/HCAP Broad-spectrum antibiotics with oxacillin 2 g IV every 4 hours till March 26 initially. This is been held in light of current change to regimen to fluconazole, ertapenem and vancomycin intermittently dosed per ID Blood cultures 2, UA ESBL positive Klebsiella UTI Repeat blood cultures 2 and sputum 03/08 pending. Urine negative. ID on board. HEME: Acute blood loss anemia DVT, bilateral posterior tibial vein, IVC filter Septic thrombophlebitis with occlusive thrombus mid cephalic and basilic vein side Received 10 PRBC, 14 FFP, 2 platelets, 1 cryo-02/28 Past 24 hours received 3 units PRBCs Serial hemoglobins every 6 hours Recheck coags Ultrasound 01/23/17 - Bilateral lower extremity with occlusive posterior tibial vein DVTs. Heparin was initially started for DVT but was placed on hold due to LP with suspected traumatic tap. Currently holding full anticoagulation with enoxaparin 100 mg IV twice a day due to anemia as of 02/26 IVC filter was placed 01/25/17. Ultrasound LUE 02/10 occlusive thrombus mid cephalic vein, basilic vein.s. Transfuse 3 units PRBCs 02/27 Transfuse 2 units PRBCs 03/01. ENDO: Diabetes mellitus Hypoglycemia History of prior adrenal insufficiency with shock Gout EGD colonoscopy completed 02/22. gastritis and esophagitis, colon polyps Started Hydrocortisone 100 mg every 8 hours 02/21/17 (Recent high dose steroids use now hypotensive, hypoglycemic), start steroid taper. Currently at 50 twice a day Accu-Cheks to maintain euglycemia Novulin R every 4 hours. Insulin detemir 5 units twice a day. No slight scale past 24 hours MSK: Right distal ulna fracture. Dr. Nathan with orthopedics has evaluated and recommended nonoperative management. Right wrist splint in place. PROPH: Lansoprazole 30 mg twice a day twice a day for stress ulcer prophylaxis. Has IVC filter. Therapeutic enoxaparin currently on hold for retroperitoneal hematoma ACCESS: right IJ CVL placed 03/03. A left IJ hemodialysis catheter placed 03/01. Critical care time 35 minutes Problem Qualifiers (1) Aspiration pneumonia: (2) DVT (deep venous thrombosis): Qualified Codes: I82.443 - Acute embolism and thrombosis of tibial vein, bilateral (3) Acute renal failure: Qualified Codes: N17.9 - Acute kidney failure, unspecified (4) Diabetes mellitus: (5) Gout: Janes Aguiar MD Mar 10, 2017 15:26
[2017-03-10] MEDS: FUROSEMIDE 40 MG/4 ML VIAL IV PUSH SCH (17:48)
[2017-03-10] MEDS: ERTAPENEM INJ 1,000 MG in SODIUM CHLORIDE 0.9% INJ 100 ML IV SCH (19:57)
[2017-03-10] MEDS: ATORVASTATIN 10 MG TAB PO SCH (20:01)
[2017-03-11] VITALS (18 sets, daily range): BP systolic 101–162; BP diastolic 61–99; PULSE 94–129; RESP 11–25; TEMP 98.6–99.1; O2SAT 4–100
[2017-03-11] MEDS: oxyCODONE HCL ORAL CONC 5 MG/0.25 ML SYRINGE PO SCH ×7 (02:34→21:49)
[2017-03-11] MEDS: RESP: ALBUTEROL 2.5 MG/IPRATROPIUM 0.5 MG NEB (SCH) NEB ×4 (03:47→21:48)
[2017-03-11] MEDS: FREE WATER G-TUBE SCH ×5 (04:00→19:55)
[2017-03-11] MEDS: INSULIN NovoLIN REGULAR SUPPLEMENTAL SCALE SQ SCH ×6 (04:54→20:00)
[2017-03-11 05:01] LABS: HEMATOCRIT 23.3 % (39.0-51.0); MEAN CORPUSCULAR HEMOGLOBIN 29.2 PG (27.0-34.0); MEAN CORPUSCULAR HGB CONC 32.4 % (32.0-36.0); PLATELET COUNT 174 TH/MM3 (150-450); RED BLOOD COUNT 2.59 MIL/MM3 (4.50-5.90); RED CELL DISTRIBUTION WIDTH 15.4 % (11.6-17.2); REVIEW FLAG FINAL
[2017-03-11] MEDS: ARTIFICIAL TEARS OPTH SOLN 15 ML BTL EACH EYE SCH ×3 (05:18→21:48)
[2017-03-11] MEDS: METOCLOPRAMIDE HCL 10 MG/2 ML VIAL IV PUSH SCH ×3 (05:18→21:32)
--- NOTE | 2017-03-11 05:18 | RADRPT ---
EXAM DATE/TIME: 03/11/2017 05:10 [facility] COMPARISON: CHEST SINGLE AP, March 09, 2017, 5:53. INDICATIONS : Respiratory failure. Followup bibasilar densities. Patient remains intubated. MEDICAL HISTORY : Chronic obstructive pulmonary disease. Diabetes mellitus type II. SURGICAL HISTORY : Renal Stents ENCOUNTER: Subsequent ACUITY: 1 month PAIN SCORE: Non-responsive. LOCATION: Bilateral chest FINDINGS: A single AP semierect view of the chest was obtained and again demonstrates an endotracheal tube in p lace with the tip at the level of thoracic inlet. A nasogastric tube is seen coursing through the eso phagus into the stomach. The bilateral internal jugular central venous lines remain in place. The marilynn dy is submitted nspiratory hazy opacity remaining at the lung bases without significant change. The l eft costophrenic angle is blunted. The heart size is within normal limits and there are multiple over lying electrocardiogram leads. CONCLUSION: 1. No significant change in the bibasilar densities. 2. Small left effusion. Benjamin Person MD on March 11, 2017 at 5:15 Board Certified Radiologist. This report was verified electronically.
[2017-03-11 05:22] LABS: BICARBONATE 22.4 MEQ/L (21.0-32.0); POTASSIUM 3.6 MEQ/L (3.5-5.1)
[2017-03-11] MEDS: PROPOFOL 1000 MG/100 ML INJ 100 ML IV PRN (05:54)
[2017-03-11] MEDS: fentaNYL DRIP 250 ML IV PRN (05:54)
[2017-03-11] MEDS: CHLORHEXIDINE 0.12% (ORAL KIT) 15 ML CUP MT SCH ×2 (07:28→19:56)
[2017-03-11] MEDS: FUROSEMIDE 40 MG/4 ML VIAL IV PUSH SCH ×2 (08:24→17:11)
[2017-03-11] MEDS: LACTOBACILLUS ACIDOPHILUS TAB PO SCH ×3 (08:24→17:12)
[2017-03-11] MEDS: HYDROCORTISONE SOD SUCCINATE 100 MG VIAL IV SCH (08:24)
[2017-03-11] MEDS: LANSOPRAZOLE SOLUTAB 30 MG TAB NG SCH ×3 (08:25→21:00)
[2017-03-11] MEDS: INSULIN DETEMIR 100 UNITS/ML VIAL SQ SCH ×3 (08:25→20:20)
[2017-03-11] MEDS: SODIUM CHLORIDE 0.9% FLUSH 10 ML FLUSH IV FLUSH SCH ×3 (08:25→20:01)
--- NOTE | 2017-03-11 10:57 | HHI.IDPN ---
Subjective Subjective Remarks Patient is a 62-year-old male, admitted to the hospital for evaluation of pain in his right wrist. He gave a history of falling about a week ago and apparently had immediate pain in the right wrist. He did not seek any medical attention initially because reportedly he was very busy. He eventually presented, and he was found to have a distal ulnar fracture on plain films. He also had some redness and swelling. Orthopedics saw the patient, and was being treated conservatively with the splint. During this hospitalization also he started complaining of generalized weakness but more so in his lower extremity than his upper extremity. He had swelling in both lower extremity which revealed evidence of DVT in the posterior tibial veins. Neurology had seen the patient and he underwent lumbar puncture which apparently was traumatic. Patient was therefore not given anticoagulation because of the traumatic LP, and he underwent placement of an IVC filter on January 25. Patient had another lumbar puncture on February 01. He was felt to have transverse myelitis, and he was given high-dose IV Solu-Medrol from January 27 to February 02. There was apparently some improvement in his weakness. The imaging studies done for his weakness showed some spinal stenosis, and neurosurgery was consult that and recommended that there was no surgical intervention to be done. Patient has been stabilizing, but last night apparently deteriorated, and he ended up getting intubated, and had significant hypotension requiring pressors. There was also an ultrasound done of his left upper extremity which showed DVT, and there was evidence of superior 2 thrombophlebitis. Vascular surgery was consult to it and he had IND on his left upper extremity. Patient has had some fevers since yesterday. 2 blood cultures were done yesterday and they're now reported as growing gram-positive cocci in [place] in clusters. He is currently sedated and intubated. He is on Levophed and vasopressin. A central line was placed as well as a femoral a line. He apparently had an IV in his left upper extremity and that was removed yesterday. Patient also has history of chronic kidney disease, and nephrology evaluated the patient. He was just being monitored for his renal insufficiency. Infectious disease consultation has been requested to evaluate the patient. Notes reviewed D/W RN [place] ok Doing well with weaning trials Awake and responding Had HD yesterday Antibiotics I attest that I obtained, updated or reviewed the home and current medications. Antibiotics - Invanz Vanco intermittent dosing Current Medications Medications (Trade) Dose Ordered Sig/Rosalia Route Start Time Stop Time Status Last Admin (NS Flush) 2 ml UNSCH PRN IV FLUSH 01/23/17 00:30 02/01/17 05:07 (NS Flush) 2 ml BID IV FLUSH 01/23/17 09:00 03/11/17 08:25 (Zofran Inj) 4 mg Q6H PRN IVP 01/23/17 00:30 02/26/17 17:23 (Narcan Inj) 0.4 mg UNSCH PRN IV 01/23/17 00:30 (Edna-Colace) 1 tab BID PO 01/23/17 09:00 Future Hold 02/24/17 20:31 (Dulcolax Supp) 10 mg DAILY PRN RECTAL 01/23/17 00:30 (Lipitor) 10 mg HS PO 01/24/17 21:00 Future hold 03/10/17 20:01 (Glucagon Inj) 1 mg UNSCH PRN OTHER 02/11/17 05:45 02/18/17 18:53 (Flomax) 0.4 mg Q12HR PO 02/17/17 15:00 Future Hold 02/26/17 08:49 (Lovenox Inj) 100 mg Q12H SQ 02/18/17 12:00 Future Hold 02/26/17 16:20 (Lactinex) 1 tab TID PO 02/19/17 13:00 03/11/17 08:24 (Apresoline Inj) 10 mg Q30M PRN IV PUSH 02/20/17 11:45 03/06/17 08:45 (D50w (Vial) Inj) 25 ml UNSCH PRN IV PUSH 02/20/17 12:45 Sodium Chloride 1,000 ml @ 20 mls/hr Q24H IV 02/22/17 13:00 03/10/17 12:35 Oxacillin Sodium 2 gm/Sodium Chloride 100 ml @ 200 mls/hr Q4H IV 02/23/17 12:00 Future Hold 02/27/17 04:25 (Questran Light Pkt) 4 gm Q12HR PO 02/25/17 21:00 Future Hold 02/27/17 10:32 (Aldactone) 25 mg DAILY PO 02/27/17 09:00 Future Hold (Reglan Inj) 5 mg Q8HR IV PUSH 02/26/17 22:00 03/11/17 05:18 (Brethine Inj) 1 mg UNSCH PRN SQ 02/27/17 16:30 (Peridex 0.12% Liq) 15 ml BID@08,20 MT 02/28/17 08:00 03/11/17 07:28 Fentanyl Citrate 250 ml @ 5 mls/hr TITRATE PRN IV 02/28/17 08:00 03/11/17 05:54 (Albuterol Neb) 2.5 mg Q2HR NEB PRN NEB 02/28/17 07:45 (NovoLIN R SUPPLEMENTAL SCALE) 1 Q4HR SQ 02/28/17 08:00 03/11/17 04:54 (Tears Naturale Opth Soln) 1 drop Q8HR EACH EYE 02/28/17 14:00 03/11/17 05:18 Sodium Chloride 1,000 ml @ 0 mls/hr Q0M PRN OTHER 03/01/17 11:19 03/02/17 13:00 Sodium Chloride 1,000 ml @ 200 mls/hr Q5H PRN IV 03/01/17 11:19 Sodium Chloride 1,000 ml @ 0 mls/hr Q0M PRN OTHER 03/01/17 11:19 (Mannitol Inj) 12.5 gm UNSCH PRN IV 03/01/17 11:30 03/08/17 17:27 Albumin Human 100 ml @ 60 mls/hr UNSCH PRN IV 03/01/17 11:30 03/08/17 17:28 (NS Flush) 5 ml UNSCH PRN IV FLUSH 03/01/17 11:30 (Heparin Inj) UNSCH PRN .XX 03/01/17 11:30 03/02/17 13:00 (Gentamicin (Dialysis) Inj) 20 mg UNSCH PRN OTHER 03/01/17 11:30 03/08/17 17:28 (Tylenol) 650 mg UNSCH PRN PO 03/01/17 11:30 (Nitrostat Sl) 0.4 mg UNSCH PRN SL 03/01/17 11:30 (Gelfoam 12 Mm/7 Mm Top) 1 foam UNSCH PRN TOP 03/01/17 11:30 (NS Flush) UNSCH PRN IV FLUSH 03/01/17 13:00 (Heparin Inj) UNSCH PRN IV FLUSH 03/01/17 13:00 Ertapenem 1000 mg/ Sodium Chloride 100 ml @ 200 mls/hr Q24H IV 03/01/17 20:00 03/10/17 19:57 (NS Flush) DAILY IV FLUSH 03/04/17 09:00 03/11/17 08:25 (NS Flush) UNSCH PRN IV FLUSH 03/03/17 18:45 Propofol 100 ml @ 3.894 mls/ hr TITRATE PRN IV 03/05/17 07:45 03/11/17 05:54 (Mag-Ox) 800 mg UNSCH PRN PO 03/05/17 07:45 03/07/17 14:00 Magnesium Sulfate 4 gm/Sodium Chloride 100 ml @ 50 mls/hr UNSCH PRN IV 03/05/17 07:45 Magnesium Sulfate 2 gm/Sodium Chloride 100 ml @ 50 mls/hr UNSCH PRN IV 03/05/17 07:45 03/08/17 14:29 Potassium Chloride 100 ml @ 50 mls/hr Q2H PRN IV 03/05/17 07:45 03/07/17 08:01 Potassium Chloride 100 ml @ 50 mls/hr Q2H PRN IV 03/05/17 07:45 Potassium Chloride 100 ml @ 50 mls/hr Q2H PRN IV 03/05/17 07:45 Potassium Chloride 100 ml @ 25 mls/hr UNSCH PRN IV 03/05/17 07:45 (K-Phos) 2,000 mg Q4H PRN PO 03/05/17 07:45 (K-Phos) 2,000 mg UNSCH PRN PO/TUBE 03/05/17 07:45 Potassium Phosphate 30 mmol/ Sodium Chloride 260 ml @ 42 mls/hr UNSCH PRN IV 03/05/17 07:45 Sodium Phosphate 30 mmol/Sodium Chloride 250 ml @ 42 mls/hr UNSCH PRN IV 03/05/17 07:45 (Roxicodone Intensol Liq) 10 mg Q4H PO 03/05/17 14:00 03/11/17 09:35 (Free Water) VOLUME OF WATER: ( 200 ) ML Q4HR G-TUBE 03/06/17 12:00 03/11/17 07:28 (SoluCORTEF INJ) 25 mg Taper DAILY IV 03/08/17 09:00 03/12/17 08:59 03/11/17 08:24 (Levemir Inj) 5 units BID SQ 03/07/17 21:00 03/11/17 08:25 (Prevacid Odt) 30 mg BID NG 03/07/17 21:00 03/11/17 08:25 Phenylephrine HCl 160 mg/Dextrose 500 ml @ 7.5 mls/hr TITRATE PRN IV 03/08/17 17:15 03/08/17 20:20 (Brethine Inj) 1 mg UNSCH PRN SQ 03/08/17 17:15 (Tylenol 650 Mg/ 20 ml Liq) 650 mg Q6H PRN PO 03/09/17 10:15 (Lasix Inj) 40 mg BID@09,18 IV PUSH 03/10/17 18:00 03/11/17 08:24 (Duoneb Neb) 1 ampule Q6HR NEB NEB 03/10/17 16:00 03/11/17 09:45 Vancomycin HCl 1500 mg/Sodium Chloride 515 ml @ 257.5 mls/ hr ONCE ONCE IV 03/11/17 10:45 03/11/17 12:44 UNV Lines TLC Vascath Past Medical History Reviewed Allergies: Coded Allergies: levofloxacin (Verified Allergy, Severe, 01/22/17) Objective . Vital Signs Date Time Temp Pulse Resp B/P (MAP) Pulse Ox O2 Delivery O2 Flow Rate FiO2 03/11/17 10:00 95 03/11/17 08:45 35 03/11/17 08:45 93 35 03/11/17 08:40 97 35 03/11/17 08:00 100 03/11/17 08:00 35 03/11/17 08:00 98.7 100 11 101/61 (74) 95 03/11/17 07:00 100 Mechanical Ventilator 35 03/11/17 06:00 112 03/11/17 04:00 98.6 106 16 123/75 (91) 96 03/11/17 04:00 94 03/11/17 04:00 30 03/11/17 03:47 95 35 03/11/17 02:00 118 03/11/17 00:55 100 35 03/11/17 00:00 102 03/11/17 00:00 30 03/11/17 00:00 99.1 102 16 124/65 (84) 99 03/10/17 22:00 94 03/10/17 21:00 30 03/10/17 20:48 98 35 03/10/17 20:00 35 03/10/17 20:00 108 03/10/17 20:00 99.5 108 12 116/66 (83) 100 03/10/17 19:00 100 Mechanical Ventilator 35 03/10/17 18:00 112 03/10/17 17:07 97 35 03/10/17 16:00 99 03/10/17 16:00 99.3 99 14 106/66 (79) 97 03/10/17 16:00 35 03/10/17 14:00 98 03/10/17 12:00 99.5 114 15 113/72 (86) 100 03/10/17 12:00 114 03/10/17 12:00 35 . Laboratory Tests Test 03/10/17 05:57 03/11/17 04:40 White Blood Count 15.1 TH/MM3 12.0 TH/MM3 Red Blood Count 2.74 MIL/MM3 2.59 MIL/MM3 Hemoglobin 8.2 GM/DL 7.6 GM/DL Hematocrit 24.8 % 23.3 % Mean Corpuscular Volume 90.4 FL 90.0 FL Mean Corpuscular Hemoglobin 30.0 PG 29.2 PG Mean Corpuscular Hemoglobin Concent 33.2 % 32.4 % Red Cell Distribution Width 15.2 % 15.4 % Platelet Count 126 TH/MM3 174 TH/MM3 Mean Platelet Volume 9.1 FL 8.3 FL Laboratory Tests Test 03/10/17 05:57 03/11/17 04:40 Blood Urea Nitrogen 59 MG/DL 63 MG/DL Creatinine 1.48 MG/DL 1.56 MG/DL Random Glucose 182 MG/DL 177 MG/DL Calcium Level 8.1 MG/DL 7.9 MG/DL Phosphorus Level 3.2 MG/DL 2.5 MG/DL Magnesium Level 2.0 MG/DL 2.0 MG/DL Sodium Level 144 MEQ/L 147 MEQ/L Potassium Level 4.3 MEQ/L 3.6 MEQ/L Chloride Level 113 MEQ/L 115 MEQ/L Carbon Dioxide Level 22.8 MEQ/L 22.4 MEQ/L Anion Gap 8 MEQ/L 10 MEQ/L Estimat Glomerular Filtration Rate 48 ML/MIN 45 ML/MIN Microbiology Date/Time Source Procedure Growth Status 03/08/17 19:49 Blood Peripheral Aerobic Blood Culture - Preliminary NO GROWTH IN 2 DAYS Resulted 03/08/17 19:49 Blood Peripheral Anaerobic Blood Culture - Preliminary NO GROWTH IN 2 DAYS Resulted 03/08/17 19:40 Blood Line Aerobic Blood Culture - Preliminary NO GROWTH IN 2 DAYS Resulted 03/08/17 19:40 Blood Line Anaerobic Blood Culture - Preliminary NO GROWTH IN 2 DAYS Resulted 03/08/17 23:00 Sputum Endotracheal Gram Stain - Final Resulted 03/08/17 23:00 Sputum Culture - Preliminary Gram Negative Holger Resulted Imaging Chest X-Ray 03/02/17 0600 Signed Impressions: Service Date/Time: Thursday, March 02, 2017 01:56 - CONCLUSION: 1. Supine apparatus in good position. Bilateral space disease, left greater than right. Left-sided pleural effusion similar to prior exam. Trace Holloway MD Aortography 02/28/17 0000 Signed Impressions: Service Date/Time: Tuesday, February 28, 2017 08:01 - CONCLUSION: 1. Active hemorrhage from distal right lateral sacral and iliolumbar branches successfully coil and Gelfoam embolized, as above. Juan Bhakta MD Abdomen/Pelvis CT 02/28/17 0000 Signed Impressions: Service Date/Time: Tuesday, February 28, 2017 06:51 - CONCLUSION: 1. The right retroperitoneal hematoma has increased in size, as above. There are 2 serpiginous arterially enhancing structures visualized, one in the right psoas muscle and another extending into the hematoma at the right iliac fossa. These could represent sites of continued active bleeding. 2. Stable moderate size left and small right pleural effusion with associated compressive atelectasis. 3. Stable small volume of free fluid in the abdomen and pelvis. There is also anasarca. The findings concerning the retroperitoneal hematoma were discussed with Dr. Aguiar via telephone at approximately 7: 10 AM on 02/28/2017. Angelo Allen MD Chest CT 02/27/17 0000 Signed Impressions: Service Date/Time: Monday, February 27, 2017 18:12 - CONCLUSION: 1. Bilateral pleural effusions with bibasilar atelectasis, left greater than right. Tom Sanchez MD Abdomen X-Ray 02/26/17 Signed Impressions: Service Date/Time: Sunday, February 26, 2017 14:52 - CONCLUSION: 1. Nonobstructive bowel gas pattern. Juan Bhakta MD Upper Extremity Ultrasound 02/10/17 Signed Impressions: Service Date/Time: Friday, February 10, 2017 18:46 - CONCLUSION: Occlusive thrombus in the cephalic and basilic veins. Benjamin Person MD Lung Scan-V Nuclear Medicine 02/10/17 0000 Signed Impressions: Service Date/Time: Friday, February 10, 2017 22:17 - CONCLUSION: Low probability pulmonary embolism. Candido Patton MD Head CT 02/10/17 0000 Signed Impressions: Service Date/Time: Friday, February 10, 2017 23:51 - CONCLUSION: Negative noncontrast CT brain. Candido Patton MD Wrist X-Ray 02/06/17 0000 Signed Impressions: Service Date/Time: Monday, February 06, 2017 12:50 - CONCLUSION: Minimally displaced distal radius and ulnar fractures. Armando Dodd MD Lumbar Puncture Fluoroscopy 02/01/17 0000 Signed Impressions: Service Date/Time: January 09:35 - CONCLUSION: Uncomplicated fluoroscopically guided lumbar puncture. CSF was clear. Nabeel Peralta MD Head Magnetic Resonance Angiography 01/27/17 0000 Signed Impressions: Service Date/Time: Friday, January 27, 2017 10:33 - CONCLUSION: No intracranial vascular abnormality is identified. There is no aneurysm visualized. Angelo Allen MD IVC Filter Placement X-Ray 01/25/17 0000 Signed Impressions: Service Date/Time: January 10:29 - CONCLUSION: Uncomplicated inferior vena cava filter placement as above. Yung Fowler MD Thoracic Spine MRI 01/24/17 0000 Signed Impressions: Service Date/Time: Tuesday, January 24, 2017 22:29 - CONCLUSION: 1. Mild degenerative spondylosis most prominently at T11-L1 with slight effacement of the anterior thecal sac and left lateral recess. No significant neural foraminal stenosis. 2. No acute fracture. Juan Bhakta MD Renal Ultrasound 9/5/17 0000 Signed Impressions: Service Date/Time: Monday, January 23, 2017 08:53 - CONCLUSION: 1. Evidence of chronic parenchymal disease of both kidneys. No obstructive uropathy or other acute abnormality demonstrated. 2. Trace ascites, nonspecific. Angelo Garrido MD Lumbar Spine MRI 01/23/17 Signed Impressions: Service Date/Time: Monday, January 23, 2017 17:01 - CONCLUSION: 1. At L4-5 is a broad-based disc protrusion with severe central canal and lateral recess stenosis and flattening of the exiting right L4 nerve root. 2. L5-S1 there is a disc protrusion and moderate stenosis with flattening of the exiting L5 nerve roots bilaterally. 3. At L3-4 there is a moderate to severe central stenosis and lateral recess stenosis with mild foraminal stenosis. 4. No acute fracture or spondylolisthesis. Trace Holloway MD Lower Extremity Ultrasound 01/23/17 Signed Impressions: Service Date/Time: Monday, January 23, 2017 09:53 - CONCLUSION: Bilateral focal lower extremity DVT involving the posterior tibial veins. Angelo Garrido MD Cervical Spine MRI 01/23/17 Signed Impressions: Service Date/Time: Monday, January 23, 2017 17:01 - CONCLUSION: 1. Multilevel cervical spine degenerative changes as above. 2. Mild degrees of spinal stenosis at C3/C4-C6/C7. No cord compression or cord signal abnormality. 3. Age indeterminate left paracentral/foraminal disc protrusion at C6/C7. 4. Multilevel foraminal stenosis, most severe on the left at C6/C7. Please see individual levels above. 5. No fracture or subluxation of the cervical spine. Angelo Garrido MD Brain MRI 01/23/17 Signed Impressions: Service Date/Time: Monday, January 23, 2017 17:01 - CONCLUSION: 1. No acute stroke or other acute intracranial abnormality demonstrated. 2. Moderate severity chronic white matter changes, nonspecific but most likely related to chronic small vessel disease. 3. Few scattered tiny lacunar infarcts of the brainstem. 4. Given the findings are not entirely specific, clinical evaluation for possible multiple sclerosis recommended. Angelo Garrido MD Knee X-Ray 01/22/172053 Signed Impressions: Service Date/Time: Sunday, January 22, 2017 21:17 - CONCLUSION: 1. Evidence of moderate to large joint effusion. 2. No acute fracture or malalignment. 3. Mild 3 compartment osteoarthritic change. Benjamin Person MD Hip and Pelvis X-Ray [id number]/22/[id number] Signed Impressions: Service Date/Time: Sunday, January 22, 2017 21:10 - CONCLUSION: 1. Mild to moderate degenerative change of both hips with no acute fracture or malalignment. There is flattening and remodeling of the right humeral head. Benjamin Person MD Chest X-Ray 02/24/17 06 Signed Impressions: Service Date/Time: Friday, February 24, 2017 03:58 - CONCLUSION: 1. Unchanged left lower lobe infiltrate with small effusion. Candido Mendoza Jr., MD Chest X-Ray 02/20/17 0000 Signed Impressions: Service Date/Time: Monday, February 20, 2017 11:36 - CONCLUSION: 1. Stable very small right and small left pleural effusions with left lower lobe airspace consolidation. 2. No significant interval change. Juan Bhakta MD Abdomen/Pelvis CT 02/19/17 0000 Signed Impressions: Service Date/Time: Sunday, February 19, 2017 19:09 - CONCLUSION: 1. Areas of calcification seen in the right renal collecting system, right renal pelvis, and proximal right ureter. These appear to layer and be dependent suggesting likely to represent smaller areas of milk of calcium or small stones. There is mild dilatation of the right renal collecting system and right ureter. A definite obstructing stone at this time is not seen. 2. A small amount of air within the urinary bladder. This should be correlated with any recent catheterization. 3. Mild bilateral pleural effusions with accompanying atelectasis or consolidation at the left base. The consolidation was present previously. 4. Prominent degenerative change in the lumbar spine and at the hip joints bilaterally. Angelo Manzo MD Chest X-Ray 02/12/17 0600 Signed Impressions: Service Date/Time: Sunday, February 12, 2017 03:32 - CONCLUSION: 1. Support apparatus in good position. Relatively stable basilar airspace disease and pleural effusions. Trace Holloway MD Upper Extremity Ultrasound 02/10/17 0000 Signed Impressions: Service Date/Time: Friday, February 10, 2017 18:46 - CONCLUSION: Occlusive thrombus in the cephalic and basilic veins. Benjamin Person MD Lung Scan-V Nuclear Medicine 02/10/17 0000 Signed Impressions: Service Date/Time: Friday, February 10, 2017 22:17 - CONCLUSION: Low probability pulmonary embolism. Candido Patton MD Head CT 02/10/17 0000 Signed Impressions: Service Date/Time: Friday, February 10, 2017 23:51 - CONCLUSION: Negative noncontrast CT brain. Candido Patton MD Chest CT 02/10/17 0000 Signed Impressions: Service Date/Time: Friday, February 10, 2017 23:56 - CONCLUSION: Left lower lobe collapse with consolidation. Patchy infiltrates the medial right lower lung. Candido Patton MD Abdomen/Pelvis CT 02/10/17 0000 Signed Impressions: Service Date/Time: Friday, February 10, 2017 23:59 - CONCLUSION: 1. Nonobstructing 12 mm calcified stone lower pole right kidney. 2. Atrophic left kidney with significant cortical thinning. 3. Bilateral fat-containing inguinal hernias, large on the right, and moderate on the left. 4. Consolidative collapse of the left lower lobe. Candido Patton MD Abdomen X-Ray 02/10/17 0000 Signed Impressions: Service Date/Time: Friday, February 10, 2017 08:14 - CONCLUSION: No acute abdominal abnormality is identified. Angelo Allen MD Wrist X-Ray 02/06/17 0000 Signed Impressions: Service Date/Time: Monday, February 06, 2017 12:50 - CONCLUSION: Minimally displaced distal radius and ulnar fractures. Armando Dodd MD Lumbar Puncture Fluoroscopy 02/01/17 0000 Signed Impressions: Service Date/Time: January 09:35 - CONCLUSION: Uncomplicated fluoroscopically guided lumbar puncture. CSF was clear. Nabeel Peralta MD Head Magnetic Resonance Angiography 01/27/17 0000 Signed Impressions: Service Date/Time: Friday, January 27, 2017 10:33 - CONCLUSION: No intracranial vascular abnormality is identified. There is no aneurysm visualized. Angelo Allen MD IVC Filter Placement X-Ray 01/25/17 0000 Signed Impressions: Service Date/Time: January 10:29 - CONCLUSION: Uncomplicated inferior vena cava filter placement as above. Yung Fowler MD Thoracic Spine MRI 01/24/17 Signed Impressions: Service Date/Time: Tuesday, January 24, 2017 22:29 - CONCLUSION: 1. Mild degenerative spondylosis most prominently at T11-L1 with slight effacement of the anterior thecal sac and left lateral recess. No significant neural foraminal stenosis. 2. No acute fracture. Juan Bhakta MD Renal Ultrasound 01/23/17 Signed Impressions: Service Date/Time: Monday, January 23, 2017 08:53 - CONCLUSION: 1. Evidence of chronic parenchymal disease of both kidneys. No obstructive uropathy or other acute abnormality demonstrated. 2. Trace ascites, nonspecific. Angelo Garrido MD Lumbar Spine MRI 01/23/17 Signed Impressions: Service Date/Time: Monday, January 23, 2017 17:01 - CONCLUSION: 1. At L4-5 is a broad-based disc protrusion with severe central canal and lateral recess stenosis and flattening of the exiting right L4 nerve root. 2. L5-S1 there is a disc protrusion and moderate stenosis with flattening of the exiting L5 nerve roots bilaterally. 3. At L3-4 there is a moderate to severe central stenosis and lateral recess stenosis with mild foraminal stenosis. 4. No acute fracture or spondylolisthesis. Trace Holloway MD Lower Extremity Ultrasound 01/23/17 Signed Impressions: Service Date/Time: Monday, January 23, 2017 09:53 - CONCLUSION: Bilateral focal lower extremity DVT involving the posterior tibial veins. Angelo Garrido MD Cervical Spine MRI 01/23/17 Signed Impressions: Service Date/Time: Monday, January 23, 2017 17:01 - CONCLUSION: 1. Multilevel cervical spine degenerative changes as above. 2. Mild degrees of spinal stenosis at C3/C4-C6/C7. No cord compression or cord signal abnormality. 3. Age indeterminate left paracentral/foraminal disc protrusion at C6/C7. 4. Multilevel foraminal stenosis, most severe on the left at C6/C7. Please see individual levels above. 5. No fracture or subluxation of the cervical spine. Angelo Garrido MD Brain MRI 01/23/17 Signed Impressions: Service Date/Time: Monday, January 23, 2017 17:01 - CONCLUSION: 1. No acute stroke or other acute intracranial abnormality demonstrated. 2. Moderate severity chronic white matter changes, nonspecific but most likely related to chronic small vessel disease. 3. Few scattered tiny lacunar infarcts of the brainstem. 4. Given the findings are not entirely specific, clinical evaluation for possible multiple sclerosis recommended. Angelo Garrido MD Knee X-Ray 01/22/172053 Signed Impressions: Service Date/Time: Sunday, January 22, 2017 21:17 - CONCLUSION: 1. Evidence of moderate to large joint effusion. 2. No acute fracture or malalignment. 3. Mild 3 compartment osteoarthritic change. Benjamin Person MD Hip and Pelvis X-Ray [id number]/22/172053 Signed Impressions: Service Date/Time: Sunday, January 22, 2017 21:10 - CONCLUSION: 1. Mild to moderate degenerative change of both hips with no acute fracture or malalignment. There is flattening and remodeling of the right humeral head. Benjamin Person MD Physical Exam GENERAL: Awake, following commands SKIN: Cool and dry. No generalized rash. Still very edematous EYES: [place] conjunctiva. No petechia or hemorrhage. EARS, NOSE AND THROAT: Nose without bleeding or purulent nasal discharge. ET in mouth NECK: Trachea midline. Supple and no meningeal signs CARDIOVASCULAR: Regular rate and rhythm. Soft heart sounds. No murmurs, rubs or gallops heard RESPIRATORY: Coarse BS bilaterally, decreased at bases. ABDOMEN: Soft, mildly distended, some grimacing during palpation. EXTREMITIES: No clubbing, cyanosis. More edematous. : very swollen scrotum, has a lot of sediment in his cath tubing NEUROLOGICAL: following commands PSYCHIATRIC: not restless LINE: Lines with no evidence of infection Assessment & Plan Remarks IMPRESSION New fevers, better - now with Kled and Sten mal in sputum, tracheobronchitis, he is tolerating weaning Shock, due to large R retroperitoneal bleed, S/P multiple transfusions and S/ P coiling of bleeders, resolved Elevated amylase and lipase, ?due to shock Anemia, due to bleed, retroperitoneal MSSA sepsis, due to suppurative thrombophlebitis LUE, S/P I and D and excision of portion of cephalic vein - needs Rx until Mar 25 Respiratory failure, has had several intubations - reintubated again 02/28 Recent Rx 7 days high dose solumedrol for transverse myelitis Wu LE DVT has IVC filter placed 01/25 - ?hypercoagulable state Chronic kidney disease, worsening creatinine - shock and compression of ureter by hematoma Known DM, HTN Gouty tophi both hands and feet Diarrhea, C diff negative UTI, GNR - repeat UA better, but a lot of sediment in the urine Thrombocytopenia, no evidence of DIC, ?meds, ?infection, ?due to bleed - improving RECOMMENDATION Dose of Vanco today - for Staph coverge Continue Invanz for the Kleb ESBL+ Add Bactrim to cover Sten mal Follow C/S Monitor temps' Monitor progress Weaning per CCM D/W Irene Vogel MD Mar 11, 2017 10:57
--- NOTE | 2017-03-11 11:55 | HHI.CCPN ---
Subjective Remarks/Hospital Course Date of admission: 01/22 Date of critical care medicine consult 02/10 due to acute hypoxemic respiratory failure requiring emergent intubation 62-year-old male with a past medical history of hypertension, hyperlipidemia, diabetes mellitus, gout, uric acid kidney stones, kidney disease of unknown stage who originally presented to [facility] emergency department on 01/22 after a fall in which he sustained a right distal ulna fracture. He had been experiencing a gradual primarily lower extremity weakness as well as upper extremity weakness that was progressive. Neurology consult was obtained. MRI revealed no acute stroke. He had multifocal white matter changes. Tiny lacunar infarcts of the brainstem. Lumbar MRI report states L4-L5 disc protrusion with cetnral canal stenosis. Dr. Blackwell evaluated and states no cord compression on MRI C/T spine and recommended nonoperative management. Symptoms were felt to be consistent with transverse myelitis and he underwent Solumedrol 250 mg IV q6 hours 01/27-02/02. He also was found to have occlusive thrombus in the bilateral posterior tibial veins. Heparin was being avoided because he had traumatic lumbar puncture on 01/26 and 02/01. IVC filter was placed 01/25. He was undergoing physical therapy, reportedly making some improvements with plan to eventually discharged home with his son (max assist standing, and bed to chair per PT note). Apparently he had some vomiting the evening of 02/09 and additional vomiting on 02/10. He had a fever 102.8 on 02/09. Last recorded bowel movement was 02/03. Tonight he had acute onset of severe hypoxemia and respiratory distress. [facility] called and he was brought emergently to [facility] where his sats were 64% on 100% nonrebreather with mean arterial pressure 44. He was emergently intubated, CVL and art line placed. He is in septic shock. SUBJ: 02/11: Patient remains intubated sedated, critically ill. FiO2 reduced to 80% after increasing PEEP to 12. In severe septic shock Levophed at 16 mcg/m, vasopressin at 0.04 international units. D/W vascular surgery Dr. Enciso. He performed bedside Left upper extremity incision and debridement and excision of septic cephalic vein. 02/12: Remains intubated sedated profoundly septic, in shock on vasopressin and 7 mcg/min Levophed. FiO2 has improved to 45%, WBC count remains elevated with 20 ,000 white count significant left shift. Slight improvement in creatinine 2.9 urine output 750 ml 24 hours. 2-D echo shows LV ejection fraction 20-25%, no vegetation reported. Blood cultures 4 staph aureus. Wound culture pending 02/13: Remains critically ill but stable to improving. WBC count is down to 16, creatinine improving to 2.36. Off all pressors. Urine output also improving. 1.5L in 24 hours 02/14: Extubated 02/13. Tolerating well. WBC now down to 12.8. Creat improving 2.3 to 2. UO 3.4L. remains off all pressors. Was started on Precedex yesterday night for agitation, currently on 0.5 g per KG per hour. Chest x-ray shows left more than right air space disease 02/20/17 Re consult: 62-year-old male who was originally admitted for lower extremity weakness and found to have what was thought to be possible transverse myelitis. His hospital course his included a healthcare associated pneumonia, septic thrombophlebitis, DVT. He was most recently in the hospital floor where he had significant nausea and vomiting and diarrhea. His C. difficile test was recently negative. However, he has experienced worsening acute on chronic renal failure, hypotension, tachycardia, and severe hypoxemia. He did have a bout of vomiting earlier today, and his hospitalist attending suspects that he may have aspirated. He arrives by rapid response to the ICU with a nonrebreather in place in severe respiratory distress with SPO2 of 85%. I emergently intubate the patient, see separate procedure note for details. At this point the patient was hypotensive and tachycardic. He does have a history of an EF of 20%, however clinically he appears in florid septic shock. I placed central line and arterial line started vasopressors and gentle IV fluid resuscitation with 1 L of LR. Patient today was empirically broadened to vancomycin and Zosyn from his oxacillin which was initially treating MSSA bacteremia. He is recultured. Critical-care medicine is consulted to evaluate and manage his worsening multiorgan system failure and decompensated septic shock 02/21: Patient remains intubated sedated. Becomes anxious tachypnea on sedation lightening. Chest x-ray shows mild left lower lobe infiltrate. WBC count is slightly improved today from 23.2 t0 21. C Diff negative. UO adequate, creat slightly worsening. 1.57 today 02/22: Remains intubated sedated tolerated CPAP yesterday, plan is for EGD/ Colonscopy. WBC count back to normal. UO adequate. Creat stable 02/23: Tolerating CPAP trials following commands. Will do a spontaneous breathing trials. Status post EGD colonoscopy yesterday -Gastritis, esophagitis. Diverticulosis and multiple polyps. Urine output adequate but creatinine increasing to 1.7 with patient requiring multiple straight catheterization. We'll reinsert Sloan. 02/24: Breathing comfortably 24 hours after extubation. Protects airway well. 02/25: Excoriate bottom, will place rectal FMS. Start pureed diet. 02/26: Afebrile. Complaining of nausea and vomiting this afternoon. Increased stool output. Continue potassium replacement today. 02/27: 10 PM overnight, acutely hypotensive. Received 3 units PRBCs. Antibiotic coverage broadened to piperacillin/tazobactam, cortisol and 1 dose of vancomycin. Oxacillin drip currently on hold. Symptomatically, patient continues to vague abdominal pain/nausea vomiting which is unchanged for the past several days. Lipase elevated yesterday. Lactic acid normal. Troponin normal. Urinary retention after removal of Sloan. Straight catheter 1300. Cc 02/28: New diagnosis large retroperitoneal hematoma. Received 10 PRBC, 14 FFP, 2 platelets, 1 cryo-, 6 g calcium chloride, 2 is magnesium sulfate and 4 mg Bumex. CTA abdomen revealed possible arterial bleeds iliac, lumbar. Patient is currently on norepinephrine and epinephrine drips and possible need right nephrostomy tube placement due to large hematoma compressing ureter. Intra-abdominal bladder pressures are currently 13 03/01: Afebrile. Received 25 g albumin and 1 unit PRBCs overnight. Intra- abdominal bladder pressures currently 19. Currently on 3 micrograms per minute of norepinephrine. [id number] 1 out of 4 on 4 mics grams per kilogram per minute of cisatracurium. 03/02: Slightly hypothermic overnight. Hemoglobin appears to have stabilized. Troponin bump overnight likely secondary to demand ischemia from hypotension. Hemodynamically stable off all vasopressors. 03/03: Received 1 PRBCs overnight. 3 units currently. Off all vasopressors. Likely rebleeding. Stool is dark. 03/04: Remains unstable. Ventilator dependent. 03/05: afebrile. hgb stable. 03/06: bumex drip started overnight. good uop after bumex initiated. still grossly volume overloaded. Cr downtrending. more awake with transition to propofol. still too volume overloaded to tolerate extubation. hgb stable. 03/07: Afebrile. Tolerating tube feeds at goal with Nepro. Positive BM. On low-dose fentanyl and propofol drips. Potassium currently being replaced. 03/08: Eyes will open on ventilator. Afebrile. Tolerating tube feeding. Failed PSV trial yesterday due to apnea. 03/09: Following commands. Tmax 101. Tolerating tube feeding. One hour PSV trial yesterday. Currently tolerating well so far today 1.5 hours 03/10: Low-grade temperatures. Tolerating PSV trial 10 hours yesterday. Currently at 5/5 at 35%. We'll probably attempt extubation a.m. after hemodialysis. Subjective 03/11: Extubated currently in 4 L nasal cannula. Thick secretions thick clear with cough. Currently afebrile. Tolerating diet previously. Objective Vital Signs Date Time Temp Pulse Resp B/P (MAP) Pulse Ox O2 Delivery O2 Flow Rate FiO2 03/11/17 10:00 95 03/11/17 08:45 35 03/11/17 08:45 93 03/11/17 08:00 98.7 11 101/61 (74) 03/11/17 07:00 Mechanical Ventilator Intake and Output 03/11/17 03/11/17 03/12/17 08:00 16:00 00:00 Intake Total 691 ml Output Total 550 ml Balance 141 ml Result Diagram: 03/11/17 0440 03/11/17 0440 Other Results Microbiology Date/Time Source Procedure Growth Status 03/08/17 19:49 Blood Peripheral Aerobic Blood Culture - Preliminary NO GROWTH IN 3 DAYS Resulted 03/08/17 19:49 Blood Peripheral Anaerobic Blood Culture - Preliminary NO GROWTH IN 3 DAYS Resulted 02/01/17 09:55 Cerebral Spinal Fluid Lumbar Puncture Fungal Smear - Final NO FUNGAL ELEMENTS SEEN. Complete 02/01/17 09:55 Cerebral Spinal Fluid Lumbar Puncture Fungal Culture - Final NO GROWTH IN 4 WEEKS Complete 02/17/17 05:55 Stool Stool Stool Occult Blood (GREGORY) - Final HEMOCCULT POSITIVE Complete 03/08/17 23:00 Sputum Endotracheal Gram Stain - Final Resulted 03/08/17 23:00 Sputum Culture - Preliminary Gram Negative Holger Resulted 02/27/17 08:32 Urine Catheterized Urine Urine Culture - Final Klebsiella Pneumoniae Esbl Pos Complete 02/11/17 09:10 Abscess Arm Acid Fast Stain - Final NO ACID FAST BACILLI SEEN Resulted 02/11/17 09:10 Abscess Arm Mycobacterial Culture - Preliminary NO GROWTH IN 3 WEEKS Resulted Imaging Last Impressions Chest X-Ray 03/11/17 0600 Signed Impressions: Service Date/Time: Saturday, March 11, 2017 05:10 - CONCLUSION: 1. No significant change in the bibasilar densities. 2. Small left effusion. Benjamin Person MD Aortography 02/28/17 0000 Signed Impressions: Service Date/Time: Tuesday, February 28, 2017 08:01 - CONCLUSION: 1. Active hemorrhage from distal right lateral sacral and iliolumbar branches successfully coil and Gelfoam embolized, as above. Juan Bhakta MD Abdomen/Pelvis CT 02/28/17 0000 Signed Impressions: Service Date/Time: Tuesday, February 28, 2017 06:51 - CONCLUSION: 1. The right retroperitoneal hematoma has increased in size, as above. There are 2 serpiginous arterially enhancing structures visualized, one in the right psoas muscle and another extending into the hematoma at the right iliac fossa. These could represent sites of continued active bleeding. 2. Stable moderate size left and small right pleural effusion with associated compressive atelectasis. 3. Stable small volume of free fluid in the abdomen and pelvis. There is also anasarca. The findings concerning the retroperitoneal hematoma were discussed with Dr. Aguiar via telephone at approximately 7: 10 AM on 02/28/2017. Angelo Allen MD Chest CT 02/27/17 0000 Signed Impressions: Service Date/Time: Monday, February 27, 2017 18:12 - CONCLUSION: 1. Bilateral pleural effusions with bibasilar atelectasis, left greater than right. Tom Sanchez MD Abdomen X-Ray 02/26/17 0000 Signed Impressions: Service Date/Time: Sunday, February 26, 2017 14:52 - CONCLUSION: 1. Nonobstructive bowel gas pattern. Juan Bhakta MD Upper Extremity Ultrasound 02/10/17 0000 Signed Impressions: Service Date/Time: Friday, February 10, 2017 18:46 - CONCLUSION: Occlusive thrombus in the cephalic and basilic veins. Benjamin Person MD Lung Scan-V Nuclear Medicine 02/10/17 Signed Impressions: Service Date/Time: Friday, February 10, 2017 22:17 - CONCLUSION: Low probability pulmonary embolism. Candido Patton MD Head CT 02/10/17 Signed Impressions: Service Date/Time: Friday, February 10, 2017 23:51 - CONCLUSION: Negative noncontrast CT brain. Candido Patton MD Wrist X-Ray 02/06/17 Signed Impressions: Service Date/Time: Monday, February 06, 2017 12:50 - CONCLUSION: Minimally displaced distal radius and ulnar fractures. Armando Dodd MD Lumbar Puncture Fluoroscopy 02/01/17 Signed Impressions: Service Date/Time: January 09:35 - CONCLUSION: Uncomplicated fluoroscopically guided lumbar puncture. CSF was clear. Nabeel Peralta MD Head Magnetic Resonance Angiography 01/27/17 0000 Signed Impressions: Service Date/Time: Friday, January 27, 2017 10:33 - CONCLUSION: No intracranial vascular abnormality is identified. There is no aneurysm visualized. Angelo Allen MD IVC Filter Placement X-Ray 01/25/17 Signed Impressions: Service Date/Time: January 10:29 - CONCLUSION: Uncomplicated inferior vena cava filter placement as above. Yung Fowler MD Thoracic Spine MRI 01/24/17 Signed Impressions: Service Date/Time: Tuesday, January 24, 2017 22:29 - CONCLUSION: 1. Mild degenerative spondylosis most prominently at T11-L1 with slight effacement of the anterior thecal sac and left lateral recess. No significant neural foraminal stenosis. 2. No acute fracture. Juan Bhakta MD Renal Ultrasound 01/23/17 Signed Impressions: Service Date/Time: Monday, January 23, 2017 08:53 - CONCLUSION: 1. Evidence of chronic parenchymal disease of both kidneys. No obstructive uropathy or other acute abnormality demonstrated. 2. Trace ascites, nonspecific. Angelo Garrido MD Lumbar Spine MRI 9/5/17 0000 Signed Impressions: Service Date/Time: Monday, January 23, 2017 17:01 - CONCLUSION: 1. At L4-5 is a broad-based disc protrusion with severe central canal and lateral recess stenosis and flattening of the exiting right L4 nerve root. 2. L5-S1 there is a disc protrusion and moderate stenosis with flattening of the exiting L5 nerve roots bilaterally. 3. At L3-4 there is a moderate to severe central stenosis and lateral recess stenosis with mild foraminal stenosis. 4. No acute fracture or spondylolisthesis. Trace Holloway MD Lower Extremity Ultrasound 01/23/17 Signed Impressions: Service Date/Time: Monday, January 23, 2017 09:53 - CONCLUSION: Bilateral focal lower extremity DVT involving the posterior tibial veins. Angelo Garrido MD Cervical Spine MRI 01/23/17 Signed Impressions: Service Date/Time: Monday, January 23, 2017 17:01 - CONCLUSION: 1. Multilevel cervical spine degenerative changes as above. 2. Mild degrees of spinal stenosis at C3/C4-C6/C7. No cord compression or cord signal abnormality. 3. Age indeterminate left paracentral/foraminal disc protrusion at C6/C7. 4. Multilevel foraminal stenosis, most severe on the left at C6/C7. Please see individual levels above. 5. No fracture or subluxation of the cervical spine. Angelo Garrido MD Brain MRI 01/23/17 Signed Impressions: Service Date/Time: Monday, January 23, 2017 17:01 - CONCLUSION: 1. No acute stroke or other acute intracranial abnormality demonstrated. 2. Moderate severity chronic white matter changes, nonspecific but most likely related to chronic small vessel disease. 3. Few scattered tiny lacunar infarcts of the brainstem. 4. Given the findings are not entirely specific, clinical evaluation for possible multiple sclerosis recommended. Angelo Garrido MD Knee X-Ray [id number]/22/[id number] Signed Impressions: Service Date/Time: Sunday, January 22, 2017 21:17 - CONCLUSION: 1. Evidence of moderate to large joint effusion. 2. No acute fracture or malalignment. 3. Mild 3 compartment osteoarthritic change. Benjamin Person MD Hip and Pelvis X-Ray [id number]/22/[id number] Signed Impressions: Service Date/Time: Sunday, January 22, 2017 21:10 - CONCLUSION: 1. Mild to moderate degenerative change of both hips with no acute fracture or malalignment. There is flattening and remodeling of the right humeral head. Benjamin Person MD Objective Remarks GENERAL: 62-year-old male, resting in bed on nasal cannula HEENT: Normocephalic. Atraumatic. Pupils equal, round, reactive, conjugate by 3 mm bilaterally. NECK: Trachea is midline. Obese. No JVD or thyromegaly right IJ TLC, left IJ hemodialysis catheter clean dry and intact CHEST: Diminished breath sounds. equal chest rise. CARDIOVASCULAR: RRR. S1, S2. No S4 without murmur ABDOMEN distended. No rigidity.. Umbilical hernia is reducible. : Positive scrotal edema MUSCULOSKELETAL: Pulses 2+. 1+ bilateral upper and lower extremity edema. Wound VAC on left upper extremity NEUROLOGICAL: Cranial nerves II through XII grossly intact. Moves upper extremity bilaterally spontaneously to command. Withdrawals bilateral lower extremities. Follows verbal commands. Procedures IVC filter placement 01/25/2017 LP 01/26/2017 Line: Central Venous Catheter Side: Right Location: Internal, Jugular A/P Problem List: (1) Septic shock ICD Code: A41.9 - Sepsis, unspecified organism; R65.21 - Severe sepsis with septic shock Status: Acute (2) Acute respiratory failure ICD Code: J96.00 - Acute respiratory failure, unspecified whether with hypoxia or hypercapnia Status: Acute (3) Thrombophlebitis arm ICD Code: I80.8 - Phlebitis and thrombophlebitis of other sites (4) Aspiration pneumonia ICD Code: J69.0 - Pneumonitis due to inhalation of food and vomit Status: Acute (5) Atelectasis of left lung ICD Code: J98.11 - Atelectasis Status: Acute (6) Quadriparesis ICD Code: G82.50 - Quadriplegia, unspecified Status: Acute (7) DVT (deep venous thrombosis) ICD Code: I82.409 - Acute embolism and thrombosis of unspecified deep veins of unspecified lower extremity (8) Altered mental status ICD Code: R41.82 - Altered mental status, unspecified Status: Acute (9) CKD (chronic kidney disease) stage 3, GFR 30-59 ml/min ICD Code: N18.3 - Chronic kidney disease, stage 3 (moderate) Status: Chronic (10) Acute renal failure ICD Code: N17.9 - Acute kidney failure, unspecified Status: Acute (11) Diabetes mellitus ICD Code: E11.9 - Type 2 diabetes mellitus without complications Status: Chronic (12) Distal end of ulna fracture, closed ICD Code: S52.609A - Unspecified fracture of lower end of unspecified ulna, initial encounter for closed fracture Status: Acute (13) Gout ICD Code: M10.9 - Gout, unspecified Status: Chronic Assessment and Plan NEURO/PSYCH: Acute metabolic encephalopathy- persistent Quadriparesis secondary to suspected transverse myelitis Recurrent falls Pain secondary to retroperitoneal hematoma. Suspected transverse myelitis. Received methylprednisolone 250 mg IV every 6 hours 01/27-02/02, started back on hydrocortisone 02/21/17, initially tapering to 50 mg IV every 8 hours starting received 1 dose at 2100 prior to becoming hypotensive. weaning hydrocortisone taper and will discontinue 03/09 LP 01/26 and 02/01. CSF culture negative 01/26, 02/01 Oligoclonal bands negative. CSF/serum IgG index is not elevated. VDRL nonreactive. Cryptococcal antigen negative. Brain MRI 01/23 no acute stroke. Few scattered lacunar infarcts of the brainstem. Moderate chronic white matter changes. MRI cervical/thoracic spine- mild spinal stenosis C3/C4 to C6/C7. No cord compression. RPR negative Neurology has been following, Dr. Crenshaw. Repeat CT brain 02/10 - negative Continue PT/OT RESP: Acute hypoxemic respiratory failure Healthcare associated pneumonia/Aspiration Pneumonia Right-sided chest tube placed for pleural effusion. Nasal cannula to maintain saturations greater than or equal to 92% Incentive spirometry while awake A cappella/PEP every 6 hours Albuterol/ipratropium aerosols every 6 hours with albuterol aerosols every 2 hours prn VQ scan 02/10 low probability for PE. CT chest 02/10 - left lower lobe collapse and consolidation. CT chest 02/27 revealed right greater than left pleural effusions. Extubated 02/23. Intubated 02/28. Extubated 03/11 Right-sided chest tube placement 02/28 tap puller, removed 03/05. unable to wean successfully due to volume overload and multiple organ failure. will attempt volume removal today in an attempt to assist with weaning from mechanical ventilation. if no improvements soon, will need to consider tracheostomy. CV: Severe sepsis - resolved. Systolic heart failure likely chronic with ejection fraction 20-25% Hyperlipidemia History of hypertension Mild TR Elevated troponin likely type II demand ischemia Currently off all vasopressors Holding metoprolol and amlodipine in light of recent hypotension. atorvastatin 10 mg by mouth daily for dyslipidemia. Troponin 0.[address]-T changes. Patient denying chest discomfort. 2-D echocardiogram 01/11 revealed EF 20-25%. Mild TR. Pulmonary arterial pressures were normal around 20 Troponin 6.55 on 03/02 and trending downward. Likely will need stress test of heart once stable. Cannot anticoagulate due to retroperitoneal hematoma the present time Currently on furosemide 40 mg IV twice a day per nephrology. GI: Large right retroperitoneal hematoma Erosive esophagitis Adematous/hyperplastic colon polyps Severe acute protein calorie malnutrition Nausea/vomiting - resolved. Diarrhea Gastritis Diverticulosis Internal and external hemorrhoids Hiatal hernia Elevated lipase Hypernatremia Hypokalemia 02/27 CT chest/abdomen and pelvis - 9.4 x 7.5 renal and 16 x 12 cm right psoas muscle hematoma. Fluid around liver and spleen. Right-sided nephrolithiasis CTA abdomen 02/28 - possible blushing around iliac/lumbar vessels Discussed with IR. s/p attempted embolization CT abdomen and pelvis 02/10 atrophic left kidney. Bilateral inguinal hernias fat- containing. Nonobstructing 12 mm right kidney stone repeat CT abd/pelvis did not show evidence of obstruction. patient clinically has been having diarrhea (c. diff negative 02/19). also with nausea/vomiting of unclear etiology. EGD/Colonoscopy-02/22/17 showed gastritis esophagitis, hiatal hernia, diverticulosis and multiple polyps in descending colon and sigmoid which were snared biopsied. Biopsy pending Dr. Lewis consulted for intervention if needed for elevated IAP. will continue to check as needed Previously on on tube feeds with Nepro 50 cc an hour today. Lansoprazole for GI prophylaxis Speech therapy to evaluate swallow today postextubation FEN/RENAL: Acute kidney injury in the setting of Chronic kidney disease stage 3-4 History of uric acid kidney stones with prior stent BPH Nonfunctioning left kidney Acute intravascular volume overload Hypo-magnesium Sloan placed due to urinary retention and worsening creatinine. Monitor intake and output q1hr. Monitor electrolytes. RIOS/SPEP negative. 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 Recommended nephrostomy tube if obstruction Nephrology consulted may need ultrafiltration again today for volume removal. Due to acute illness holding tamsulosin 0.4 mg by mouth daily for BPH Free water 200 mL q4h for hypernatremia ICU electrolyte replacement protocol daily BMP 1 g mag sulfate. Recheck in a.m. ID: Septic shock- resolved. Abscess and Suppurative thrombophlebitis left upper extremity MSSA bacteremia Klebsiella UTI ESBL positive Acute aspiration pneumonia/HCAP Broad-spectrum antibiotics with oxacillin 2 g IV every 4 hours till March 26 initially. This is been held in light of current change to regimen to fluconazole, ertapenem and vancomycin intermittently dosed per ID. Added sulfamethoxazole/ trimethoprim 4 mg/80 mg 1 tablet twice a day today 03/11 per infectious disease Blood cultures 2, UA ESBL positive Klebsiella UTI Repeat blood cultures 2 and sputum 03/08 pending. Urine negative. ID on board. HEME: Acute blood loss anemia DVT, bilateral posterior tibial vein, IVC filter Septic thrombophlebitis with occlusive thrombus mid cephalic and basilic vein side Received 10 PRBC, 14 FFP, 2 platelets, 1 cryo-02/28 Past 24 hours received 3 units PRBCs Serial hemoglobins every 6 hours Recheck coags Ultrasound 01/23/17 - Bilateral lower extremity with occlusive posterior tibial vein DVTs. Heparin was initially started for DVT but was placed on hold due to LP with suspected traumatic tap. Currently holding full anticoagulation with enoxaparin 100 mg IV twice a day due to anemia as of 02/26 IVC filter was placed 01/25/17. Ultrasound LUE 02/10 occlusive thrombus mid cephalic vein, basilic vein.s. Transfuse 3 units PRBCs 02/27 Transfuse 2 units PRBCs 03/01. ENDO: Diabetes mellitus Hypoglycemia History of prior adrenal insufficiency with shock Gout EGD colonoscopy completed 02/22. gastritis and esophagitis, colon polyps Started Hydrocortisone 100 mg every 8 hours 02/21/17 (Recent high dose steroids use now hypotensive, hypoglycemic), start steroid taper. Currently at 50 twice a day Accu-Cheks to maintain euglycemia Novulin R every 4 hours. Insulin detemir 5 units twice a day. No slight scale past 24 hours MSK: Right distal ulna fracture. Dr. Nathan with orthopedics has evaluated and recommended nonoperative management. Right wrist splint in place. PROPH: Lansoprazole 30 mg twice a day twice a day for stress ulcer prophylaxis. Has IVC filter. Therapeutic enoxaparin currently on hold for retroperitoneal hematoma ACCESS: right IJ CVL placed 03/03. A left IJ hemodialysis catheter placed 03/01. Critical care time 35 minutes Problem Qualifiers (1) Aspiration pneumonia: (2) DVT (deep venous thrombosis): Qualified Codes: I82.443 - Acute embolism and thrombosis of tibial vein, bilateral (3) Acute renal failure: Qualified Codes: N17.9 - Acute kidney failure, unspecified (4) Diabetes mellitus: (5) Gout: Janes Aguiar MD Mar 11, 2017 11:55
[2017-03-11] MEDS ORDERED: VANCOMYCIN INJ 1,500 MG in SODIUM CHLORID 0.9% 500 ML INJ 500 ML IV ONE (12:00)
[2017-03-11] MEDS: SODIUM CHLOR 0.9% 1000 ML INJ 1,000 ML IV SCH (12:07)
[2017-03-11] MEDS: SULFAMETHOXAZOLE-TRIMETHOPRIM 400-80 MG TAB PO SCH ×3 (12:07→21:00)
[2017-03-11] MEDS: hydrALAZINE HCL 20 MG/ML VIAL IV PUSH PRN (12:37)
--- NOTE | 2017-03-11 12:46 | HHI.NPPN ---
Subjective History of Present Illness 61-year-old with history of urinary stone Additional Remarks Patient is now extubated, asking for food, no SOB. Review of Systems General Constitutional: Fatigue Objective Data Data 03/11/17 03/12/17 19:00 07:00 Intake Total 345 ml Balance 345 ml IV Total 345 ml Vital Signs Date Time Temp Pulse Resp B/P (MAP) Pulse Ox O2 Delivery O2 Flow Rate FiO2 03/11/17 12:14 99 Nasal Cannula 4.00 03/11/17 12:00 98.7 110 25 162/85 (110) 98 03/11/17 12:00 110 03/11/17 10:00 95 03/11/17 08:45 35 03/11/17 08:45 93 35 03/11/17 08:40 97 35 03/11/17 08:00 100 03/11/17 08:00 35 03/11/17 08:00 98.7 100 11 101/61 (74) 95 03/11/17 07:00 100 Mechanical Ventilator 35 03/11/17 06:00 112 03/11/17 04:00 98.6 106 16 123/75 (91) 96 03/11/17 04:00 94 03/11/17 04:00 30 03/11/17 03:47 95 35 03/11/17 02:00 118 03/11/17 00:55 100 35 03/11/17 00:00 102 03/11/17 00:00 30 03/11/17 00:00 99.1 102 16 124/65 (84) 99 03/10/17 22:00 94 03/10/17 21:00 30 03/10/17 20:48 98 35 03/10/17 20:00 35 03/10/17 20:00 108 03/10/17 20:00 99.5 108 12 116/66 (83) 100 03/10/17 19:00 100 Mechanical Ventilator 35 03/10/17 18:00 112 03/10/17 17:07 97 35 03/10/17 16:00 99 03/10/17 16:00 99.3 99 14 106/66 (79) 97 03/10/17 16:00 35 03/10/17 14:00 98 -: 03/11/17 0440 03/11/17 0440 Physical Exam General Appearance: No Acute Distress, Pale Eyes Eye Exam: Pupils Equal Throat Throat Exam: Oral Mucosa [place] & Moist Neck Neck Exam: Neck Supple Pulmonary Resp Exam: Crackles, Rhonchi, Decreased Bases, Diminished Breath Sounds Cardiology CV Exam: Normal Sinus Rhythm, Tachycardia Gastrointestinal/Abdomen GI Exam: Non-Tender, Distended Extremeties Extremities Exam: Pitting Edema, Dependent Edema Neurologic Neuro Exam: Awake Assessment/Plan Problem List: (1) Acute renal failure ICD Codes: N17.9 - Acute kidney failure, unspecified Status: Acute Plan: Patient developed Hypotension,sepsis staph aureus respiratory failure and increase WBC. Had aspiration pneumonia, developed sepsis with ARF again creatinine declined slightly post hydration he also had retroperitoneal bleed Elevated intra abdominal pressures - improved now. 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 Urine out put si better with Lasix. (2) CKD (chronic kidney disease) stage 3, GFR 30-59 ml/min ICD Codes: N18.3 - Chronic kidney disease, stage 3 (moderate) Status: Chronic Plan: Ultrasound revealed chronic kidney disease there is no kidney stones (3) Diabetes ICD Codes: E11.9 - Type 2 diabetes mellitus without complications Plan: Continue to monitor (4) Distal end of ulna fracture, closed ICD Codes: S52.609A - Unspecified fracture of lower end of unspecified ulna, initial encounter for closed fracture Status: Acute Plan: Orthopedic is following Problem Qualifiers (1) Acute renal failure: Qualified Codes: N17.9 - Acute kidney failure, unspecified Aicha Leonard MD Mar 11, 2017 12:46
[2017-03-11] MEDS: ERTAPENEM INJ 1,000 MG in SODIUM CHLORIDE 0.9% INJ 100 ML IV SCH (19:55)
[2017-03-11] MEDS: ATORVASTATIN 10 MG TAB PO SCH ×2 (20:01→21:00)
[2017-03-12] VITALS (14 sets, daily range): BP systolic 94–145; BP diastolic 56–85; PULSE 114–136; RESP 20–34; TEMP 98.7–99.9; O2SAT 93–100
[2017-03-12] MEDS: oxyCODONE HCL ORAL CONC 5 MG/0.25 ML SYRINGE PO SCH ×6 (02:00→22:00)
[2017-03-12] MEDS: FREE WATER G-TUBE SCH ×2 (04:00)
[2017-03-12] MEDS: INSULIN NovoLIN REGULAR SUPPLEMENTAL SCALE SQ SCH ×6 (04:00→20:00)
[2017-03-12] MEDS: RESP: ALBUTEROL 2.5 MG/IPRATROPIUM 0.5 MG NEB (SCH) NEB ×4 (04:08→20:37)
[2017-03-12 04:24] LABS: HEMATOCRIT 27.9 % (39.0-51.0); MEAN CELL VOLUME 88.8 FL (80.0-100.0); MEAN CORPUSCULAR HEMOGLOBIN 28.8 PG (27.0-34.0); MEAN CORPUSCULAR HGB CONC 32.5 % (32.0-36.0); PLATELET COUNT 286 TH/MM3 (150-450); RED BLOOD COUNT 3.15 MIL/MM3 (4.50-5.90); RED CELL DISTRIBUTION WIDTH 15.1 % (11.6-17.2); REVIEW FLAG FINAL
[2017-03-12] MEDS: LABETALOL HCL 100 MG/20 ML VIAL IV PRN ×3 (04:33→19:04)
[2017-03-12 04:53] LABS: BICARBONATE 23.3 MEQ/L (21.0-32.0); MAGNESIUM 1.9 MG/DL (1.5-2.5)
[2017-03-12 04:54] LABS: POTASSIUM 3.6 MEQ/L (3.5-5.1)
[2017-03-12] MEDS: ARTIFICIAL TEARS OPTH SOLN 15 ML BTL EACH EYE SCH (05:20)
[2017-03-12] MEDS: METOCLOPRAMIDE HCL 10 MG/2 ML VIAL IV PUSH SCH ×3 (05:21→22:08)
[2017-03-12] MEDS: INSULIN DETEMIR 100 UNITS/ML VIAL SQ SCH ×2 (09:00→21:00)
[2017-03-12] MEDS: CHLORHEXIDINE 0.12% (ORAL KIT) 15 ML CUP MT SCH ×2 (09:13→20:00)
[2017-03-12] MEDS: SODIUM CHLORIDE 0.9% FLUSH 10 ML FLUSH IV FLUSH SCH ×3 (09:13→22:07)
[2017-03-12] MEDS: SULFAMETHOXAZOLE-TRIMETHOPRIM 400-80 MG TAB PO SCH ×2 (09:14→22:08)
[2017-03-12] MEDS: LANSOPRAZOLE SOLUTAB 30 MG TAB NG SCH ×2 (09:14→22:07)
[2017-03-12] MEDS: LACTOBACILLUS ACIDOPHILUS TAB PO SCH ×3 (09:14→18:00)
[2017-03-12] MEDS: FUROSEMIDE 40 MG/4 ML VIAL IV PUSH SCH ×2 (09:15→18:50)
--- NOTE | 2017-03-12 09:41 | HHI.CCPN ---
Subjective Remarks/Hospital Course Date of admission: 01/22 Date of critical care medicine consult 02/10 due to acute hypoxemic respiratory failure requiring emergent intubation 62-year-old male with a past medical history of hypertension, hyperlipidemia, diabetes mellitus, gout, uric acid kidney stones, kidney disease of unknown stage who originally presented to [facility] emergency department on 01/22 after a fall in which he sustained a right distal ulna fracture. He had been experiencing a gradual primarily lower extremity weakness as well as upper extremity weakness that was progressive. Neurology consult was obtained. MRI revealed no acute stroke. He had multifocal white matter changes. Tiny lacunar infarcts of the brainstem. Lumbar MRI report states L4-L5 disc protrusion with cetnral canal stenosis. Dr. Blackwell evaluated and states no cord compression on MRI C/T spine and recommended nonoperative management. Symptoms were felt to be consistent with transverse myelitis and he underwent Solumedrol 250 mg IV q6 hours 01/27-02/02. He also was found to have occlusive thrombus in the bilateral posterior tibial veins. Heparin was being avoided because he had traumatic lumbar puncture on 01/26 and 02/01. IVC filter was placed 01/25. He was undergoing physical therapy, reportedly making some improvements with plan to eventually discharged home with his son (max assist standing, and bed to chair per PT note). Apparently he had some vomiting the evening of 02/09 and additional vomiting on 02/10. He had a fever 102.8 on 02/09. Last recorded bowel movement was 02/03. Tonight he had acute onset of severe hypoxemia and respiratory distress. [facility] called and he was brought emergently to [facility] where his sats were 64% on 100% nonrebreather with mean arterial pressure 44. He was emergently intubated, CVL and art line placed. He is in septic shock. SUBJ: 02/11: Patient remains intubated sedated, critically ill. FiO2 reduced to 80% after increasing PEEP to 12. In severe septic shock Levophed at 16 mcg/m, vasopressin at 0.04 international units. D/W vascular surgery Dr. Enciso. He performed bedside Left upper extremity incision and debridement and excision of septic cephalic vein. 02/12: Remains intubated sedated profoundly septic, in shock on vasopressin and 7 mcg/min Levophed. FiO2 has improved to 45%, WBC count remains elevated with 20 ,000 white count significant left shift. Slight improvement in creatinine 2.9 urine output 750 ml 24 hours. 2-D echo shows LV ejection fraction 20-25%, no vegetation reported. Blood cultures 4 staph aureus. Wound culture pending 02/13: Remains critically ill but stable to improving. WBC count is down to 16, creatinine improving to 2.36. Off all pressors. Urine output also improving. 1.5L in 24 hours 02/14: Extubated 02/13. Tolerating well. WBC now down to 12.8. Creat improving 2.3 to 2. UO 3.4L. remains off all pressors. Was started on Precedex yesterday night for agitation, currently on 0.5 g per KG per hour. Chest x-ray shows left more than right air space disease 02/20/17 Re consult: 62-year-old male who was originally admitted for lower extremity weakness and found to have what was thought to be possible transverse myelitis. His hospital course his included a healthcare associated pneumonia, septic thrombophlebitis, DVT. He was most recently in the hospital floor where he had significant nausea and vomiting and diarrhea. His C. difficile test was recently negative. However, he has experienced worsening acute on chronic renal failure, hypotension, tachycardia, and severe hypoxemia. He did have a bout of vomiting earlier today, and his hospitalist attending suspects that he may have aspirated. He arrives by rapid response to the ICU with a nonrebreather in place in severe respiratory distress with SPO2 of 85%. I emergently intubate the patient, see separate procedure note for details. At this point the patient was hypotensive and tachycardic. He does have a history of an EF of 20%, however clinically he appears in florid septic shock. I placed central line and arterial line started vasopressors and gentle IV fluid resuscitation with 1 L of LR. Patient today was empirically broadened to vancomycin and Zosyn from his oxacillin which was initially treating MSSA bacteremia. He is recultured. Critical-care medicine is consulted to evaluate and manage his worsening multiorgan system failure and decompensated septic shock 02/21: Patient remains intubated sedated. Becomes anxious tachypnea on sedation lightening. Chest x-ray shows mild left lower lobe infiltrate. WBC count is slightly improved today from 23.2 t0 21. C Diff negative. UO adequate, creat slightly worsening. 1.57 today 02/22: Remains intubated sedated tolerated CPAP yesterday, plan is for EGD/ Colonscopy. WBC count back to normal. UO adequate. Creat stable 02/23: Tolerating CPAP trials following commands. Will do a spontaneous breathing trials. Status post EGD colonoscopy yesterday -Gastritis, esophagitis. Diverticulosis and multiple polyps. Urine output adequate but creatinine increasing to 1.7 with patient requiring multiple straight catheterization. We'll reinsert Sloan. 02/24: Breathing comfortably 24 hours after extubation. Protects airway well. 02/25: Excoriate bottom, will place rectal FMS. Start pureed diet. 02/26: Afebrile. Complaining of nausea and vomiting this afternoon. Increased stool output. Continue potassium replacement today. 02/27: 10 PM overnight, acutely hypotensive. Received 3 units PRBCs. Antibiotic coverage broadened to piperacillin/tazobactam, cortisol and 1 dose of vancomycin. Oxacillin drip currently on hold. Symptomatically, patient continues to vague abdominal pain/nausea vomiting which is unchanged for the past several days. Lipase elevated yesterday. Lactic acid normal. Troponin normal. Urinary retention after removal of Sloan. Straight catheter 1300. Cc 02/28: New diagnosis large retroperitoneal hematoma. Received 10 PRBC, 14 FFP, 2 platelets, 1 cryo-, 6 g calcium chloride, 2 is magnesium sulfate and 4 mg Bumex. CTA abdomen revealed possible arterial bleeds iliac, lumbar. Patient is currently on norepinephrine and epinephrine drips and possible need right nephrostomy tube placement due to large hematoma compressing ureter. Intra-abdominal bladder pressures are currently 13 03/01: Afebrile. Received 25 g albumin and 1 unit PRBCs overnight. Intra- abdominal bladder pressures currently 19. Currently on 3 micrograms per minute of norepinephrine. [id number] 1 out of 4 on 4 mics grams per kilogram per minute of cisatracurium. 03/02: Slightly hypothermic overnight. Hemoglobin appears to have stabilized. Troponin bump overnight likely secondary to demand ischemia from hypotension. Hemodynamically stable off all vasopressors. 03/03: Received 1 PRBCs overnight. 3 units currently. Off all vasopressors. Likely rebleeding. Stool is dark. 03/04: Remains unstable. Ventilator dependent. 03/05: afebrile. hgb stable. 03/06: bumex drip started overnight. good uop after bumex initiated. still grossly volume overloaded. Cr downtrending. more awake with transition to propofol. still too volume overloaded to tolerate extubation. hgb stable. 03/07: Afebrile. Tolerating tube feeds at goal with Nepro. Positive BM. On low-dose fentanyl and propofol drips. Potassium currently being replaced. 03/08: Eyes will open on ventilator. Afebrile. Tolerating tube feeding. Failed PSV trial yesterday due to apnea. 03/09: Following commands. Tmax 101. Tolerating tube feeding. One hour PSV trial yesterday. Currently tolerating well so far today 1.5 hours 03/10: Low-grade temperatures. Tolerating PSV trial 10 hours yesterday. Currently at 5/5 at 35%. We'll probably attempt extubation a.m. after hemodialysis. 03/11: Extubated currently in 4 L nasal cannula. Thick secretions thick clear with cough. Currently afebrile. Tolerating diet previously. Subjective 03/12: Sleepy this morning but arouses. Following commands. Refusing diet at the present time. On 2 L nasal cannula. Objective Vital Signs Date Time Temp Pulse Resp B/P (MAP) Pulse Ox O2 Delivery O2 Flow Rate FiO2 03/12/17 09:09 100 Nasal Cannula 2.00 03/12/17 06:00 128 03/12/17 00:00 99.2 20 139/85 (103) 03/11/17 21:59 95 Intake and Output 03/12/17 03/12/17 03/13/17 08:00 16:00 00:00 Output Total 1100 ml Balance -1100 ml Result Diagram: 03/12/17 0400 03/12/17 0400 Other Results Microbiology Date/Time Source Procedure Growth Status 03/08/17 19:49 Blood Peripheral Aerobic Blood Culture - Preliminary NO GROWTH IN 3 DAYS Resulted 03/08/17 19:49 Blood Peripheral Anaerobic Blood Culture - Preliminary NO GROWTH IN 3 DAYS Resulted 02/01/17 09:55 Cerebral Spinal Fluid Lumbar Puncture Fungal Smear - Final NO FUNGAL ELEMENTS SEEN. Complete 02/01/17 09:55 Cerebral Spinal Fluid Lumbar Puncture Fungal Culture - Final NO GROWTH IN 4 WEEKS Complete 02/17/17 05:55 Stool Stool Stool Occult Blood (GREGORY) - Final HEMOCCULT POSITIVE Complete 03/08/17 23:00 Sputum Endotracheal Gram Stain - Final Resulted 03/08/17 23:00 Sputum Culture - Preliminary Stenotrophomonas Maltophilia Klebsiella Pneumoniae Resulted 02/27/17 08:32 Urine Catheterized Urine Urine Culture - Final Klebsiella Pneumoniae Esbl Pos Complete 02/11/17 09:10 Abscess Arm Acid Fast Stain - Final NO ACID FAST BACILLI SEEN Resulted 02/11/17 09:10 Abscess Arm Mycobacterial Culture - Preliminary NO GROWTH IN 4 WEEKS Resulted Imaging Last Impressions Chest X-Ray 03/11/17 0600 Signed Impressions: Service Date/Time: Saturday, March 11, 2017 05:10 - CONCLUSION: 1. No significant change in the bibasilar densities. 2. Small left effusion. Benjamin Person MD Aortography 02/28/17 0000 Signed Impressions: Service Date/Time: Tuesday, February 28, 2017 08:01 - CONCLUSION: 1. Active hemorrhage from distal right lateral sacral and iliolumbar branches successfully coil and Gelfoam embolized, as above. Juan Bhakta MD Abdomen/Pelvis CT 02/28/17 0000 Signed Impressions: Service Date/Time: Tuesday, February 28, 2017 06:51 - CONCLUSION: 1. The right retroperitoneal hematoma has increased in size, as above. There are 2 serpiginous arterially enhancing structures visualized, one in the right psoas muscle and another extending into the hematoma at the right iliac fossa. These could represent sites of continued active bleeding. 2. Stable moderate size left and small right pleural effusion with associated compressive atelectasis. 3. Stable small volume of free fluid in the abdomen and pelvis. There is also anasarca. The findings concerning the retroperitoneal hematoma were discussed with Dr. Aguiar via telephone at approximately 7: 10 AM on 02/28/2017. Angelo Allen MD Chest CT 02/27/17 0000 Signed Impressions: Service Date/Time: Monday, February 27, 2017 18:12 - CONCLUSION: 1. Bilateral pleural effusions with bibasilar atelectasis, left greater than right. Tom Sanchez MD Abdomen X-Ray 02/26/17 0000 Signed Impressions: Service Date/Time: Sunday, February 26, 2017 14:52 - CONCLUSION: 1. Nonobstructive bowel gas pattern. Juan Bhakta MD Upper Extremity Ultrasound 02/10/17 0000 Signed Impressions: Service Date/Time: Friday, February 10, 2017 18:46 - CONCLUSION: Occlusive thrombus in the cephalic and basilic veins. Benjamin Person MD Lung Scan-VQ Nuclear Medicine 02/10/17 0000 Signed Impressions: Service Date/Time: Friday, February 10, 2017 22:17 - CONCLUSION: Low probability pulmonary embolism. Candido Patton MD Head CT 02/10/17 0000 Signed Impressions: Service Date/Time: Friday, February 10, 2017 23:51 - CONCLUSION: Negative noncontrast CT brain. Candido Patton MD Wrist X-Ray 02/06/17 0000 Signed Impressions: Service Date/Time: Monday, February 06, 2017 12:50 - CONCLUSION: Minimally displaced distal radius and ulnar fractures. Armando Dodd MD Lumbar Puncture Fluoroscopy 02/01/17 0000 Signed Impressions: Service Date/Time: January 09:35 - CONCLUSION: Uncomplicated fluoroscopically guided lumbar puncture. CSF was clear. Nabeel Peralta MD Head Magnetic Resonance Angiography 01/27/17 0000 Signed Impressions: Service Date/Time: Friday, January 27, 2017 10:33 - CONCLUSION: No intracranial vascular abnormality is identified. There is no aneurysm visualized. Angelo Allen MD IVC Filter Placement X-Ray 01/25/17 0000 Signed Impressions: Service Date/Time: January 10:29 - CONCLUSION: Uncomplicated inferior vena cava filter placement as above. Yung Fowler MD Thoracic Spine MRI 01/24/17 0000 Signed Impressions: Service Date/Time: Tuesday, January 24, 2017 22:29 - CONCLUSION: 1. Mild degenerative spondylosis most prominently at T11-L1 with slight effacement of the anterior thecal sac and left lateral recess. No significant neural foraminal stenosis. 2. No acute fracture. Juan Bhakta MD Renal Ultrasound 01/23/17 0000 Signed Impressions: Service Date/Time: Monday, January 23, 2017 08:53 - CONCLUSION: 1. Evidence of chronic parenchymal disease of both kidneys. No obstructive uropathy or other acute abnormality demonstrated. 2. Trace ascites, nonspecific. Angelo Garrido MD Lumbar Spine MRI 01/23/17 0000 Signed Impressions: Service Date/Time: Monday, January 23, 2017 17:01 - CONCLUSION: 1. At L4-5 is a broad-based disc protrusion with severe central canal and lateral recess stenosis and flattening of the exiting right L4 nerve root. 2. L5-S1 there is a disc protrusion and moderate stenosis with flattening of the exiting L5 nerve roots bilaterally. 3. At L3-4 there is a moderate to severe central stenosis and lateral recess stenosis with mild foraminal stenosis. 4. No acute fracture or spondylolisthesis. Trace Holloway MD Lower Extremity Ultrasound 01/23/17 Signed Impressions: Service Date/Time: Monday, January 23, 2017 09:53 - CONCLUSION: Bilateral focal lower extremity DVT involving the posterior tibial veins. Angelo Garrido MD Cervical Spine MRI 01/23/17 Signed Impressions: Service Date/Time: Monday, January 23, 2017 17:01 - CONCLUSION: 1. Multilevel cervical spine degenerative changes as above. 2. Mild degrees of spinal stenosis at C3/C4-C6/C7. No cord compression or cord signal abnormality. 3. Age indeterminate left paracentral/foraminal disc protrusion at C6/C7. 4. Multilevel foraminal stenosis, most severe on the left at C6/C7. Please see individual levels above. 5. No fracture or subluxation of the cervical spine. Angelo Garrido MD Brain MRI 01/23/17 Signed Impressions: Service Date/Time: Monday, January 23, 2017 17:01 - CONCLUSION: 1. No acute stroke or other acute intracranial abnormality demonstrated. 2. Moderate severity chronic white matter changes, nonspecific but most likely related to chronic small vessel disease. 3. Few scattered tiny lacunar infarcts of the brainstem. 4. Given the findings are not entirely specific, clinical evaluation for possible multiple sclerosis recommended. Angelo Garrido MD Knee X-Ray [id number]/22/[id number] Signed Impressions: Service Date/Time: Sunday, January 22, 2017 21:17 - CONCLUSION: 1. Evidence of moderate to large joint effusion. 2. No acute fracture or malalignment. 3. Mild 3 compartment osteoarthritic change. Benjamin Person MD Hip and Pelvis X-Ray [id number]/22/[id number] Signed Impressions: Service Date/Time: Sunday, January 22, 2017 21:10 - CONCLUSION: 1. Mild to moderate degenerative change of both hips with no acute fracture or malalignment. There is flattening and remodeling of the right humeral head. Benjamin Person MD Objective Remarks GENERAL: 62-year-old male, resting in bed on nasal cannula HEENT: Normocephalic. Atraumatic. Pupils equal, round, reactive, conjugate by 3 mm bilaterally. NECK: Trachea is midline. Obese. No JVD or thyromegaly right IJ TLC, left IJ hemodialysis catheter clean dry and intact CHEST: Diminished breath sounds. equal chest rise. CARDIOVASCULAR: tachy, RR. S1, S2. No S4 without murmur ABDOMEN distended. No rigidity. Umbilical hernia is reducible. : Positive scrotal edema MUSCULOSKELETAL: Pulses 2+. 1+ bilateral upper and lower extremity edema. Wound VAC on left upper extremity NEUROLOGICAL: Cranial nerves II through XII grossly intact. Moves upper extremity bilaterally spontaneously to command. Spontaneously moves to command bilateral lower extremities. Follows verbal commands. Procedures IVC filter placement 01/25/2017 LP 01/26/2017 Urinary Catheter: Yes Assessment to: Continue Sloan insert reason: Prolonged Immobilization Vascular Central Line Catheter: Yes Assessment to: Continue Date of Insertion: Mar 03, 2017 Line: Central Venous Catheter Side: Right Location: Internal, Jugular A/P Problem List: (1) Septic shock ICD Code: A41.9 - Sepsis, unspecified organism; R65.21 - Severe sepsis with septic shock Status: Acute (2) Acute respiratory failure ICD Code: J96.00 - Acute respiratory failure, unspecified whether with hypoxia or hypercapnia Status: Acute (3) Thrombophlebitis arm ICD Code: I80.8 - Phlebitis and thrombophlebitis of other sites (4) Aspiration pneumonia ICD Code: J69.0 - Pneumonitis due to inhalation of food and vomit Status: Acute (5) Atelectasis of left lung ICD Code: J98.11 - Atelectasis Status: Acute (6) Quadriparesis ICD Code: G82.50 - Quadriplegia, unspecified Status: Acute (7) DVT (deep venous thrombosis) ICD Code: I82.409 - Acute embolism and thrombosis of unspecified deep veins of unspecified lower extremity (8) Altered mental status ICD Code: R41.82 - Altered mental status, unspecified Status: Acute (9) CKD (chronic kidney disease) stage 3, GFR 30-59 ml/min ICD Code: N18.3 - Chronic kidney disease, stage 3 (moderate) Status: Chronic (10) Acute renal failure ICD Code: N17.9 - Acute kidney failure, unspecified Status: Acute (11) Diabetes mellitus ICD Code: E11.9 - Type 2 diabetes mellitus without complications Status: Chronic (12) Distal end of ulna fracture, closed ICD Code: S52.609A - Unspecified fracture of lower end of unspecified ulna, initial encounter for closed fracture Status: Acute (13) Gout ICD Code: M10.9 - Gout, unspecified Status: Chronic Assessment and Plan NEURO/PSYCH: Acute metabolic encephalopathy- persistent Quadriparesis secondary to suspected transverse myelitis Recurrent falls Pain secondary to retroperitoneal hematoma. Suspected transverse myelitis. Received methylprednisolone 250 mg IV every 6 hours 01/27-02/02, started back on hydrocortisone 02/21/17, initially tapering to 50 mg IV every 8 hours starting received 1 dose at 2100 prior to becoming hypotensive. weaning hydrocortisone taper and will discontinue 03/09 LP 01/26 and 02/01. CSF culture negative 01/26, 02/01 Oligoclonal bands negative. CSF/serum IgG index is not elevated. VDRL nonreactive. Cryptococcal antigen negative. Brain MRI 01/23 no acute stroke. Few scattered lacunar infarcts of the brainstem. Moderate chronic white matter changes. MRI cervical/thoracic spine- mild spinal stenosis C3/C4 to C6/C7. No cord compression. RPR negative Neurology has been following, Dr. Crenshaw. Repeat CT brain 02/10 - negative Continue PT/OT RESP: Acute hypoxemic respiratory failure Healthcare associated pneumonia/Aspiration Pneumonia Right-sided chest tube placed for pleural effusion. Nasal cannula to maintain saturations greater than or equal to 92% Incentive spirometry while awake A cappella/PEP every 6 hours Albuterol/ipratropium aerosols every 6 hours with albuterol aerosols every 2 hours prn VQ scan 02/10 low probability for PE. CT chest 02/10 - left lower lobe collapse and consolidation. CT chest 02/27 revealed right greater than left pleural effusions. Extubated 02/23. Intubated 02/28. 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 unable to wean successfully due to volume overload and multiple organ failure. will attempt volume removal today in an attempt to assist with weaning from mechanical ventilation. if no improvements soon, will need to consider tracheostomy. CV: Severe sepsis - resolved. Systolic heart failure likely chronic with ejection fraction 20-25% Hyperlipidemia History of hypertension Mild TR Sinus tachycardia Elevated troponin likely type II demand ischemia Currently off all vasopressors Holding metoprolol and amlodipine in light of recent hypotension. Restarting atenolol 25 mg twice a day/home medication atorvastatin 10 mg by mouth daily for dyslipidemia. Troponin 0.[address]-T changes. Patient denying chest discomfort. 2-D echocardiogram 01/11 revealed EF 20-25%. Mild TR. Pulmonary arterial pressures were normal around 20 Troponin 6.55 on 03/02 and trending downward. Likely will need stress test of heart once stable. Cannot anticoagulate due to retroperitoneal hematoma the present time Currently on furosemide 40 mg IV twice a day per nephrology. GI: Large right retroperitoneal hematoma Erosive esophagitis Adematous/hyperplastic colon polyps Severe acute protein calorie malnutrition Nausea/vomiting - resolved. Diarrhea Gastritis Diverticulosis Internal and external hemorrhoids Hiatal hernia Elevated lipase 02/27 CT chest/abdomen and pelvis - 9.4 x 7.5 renal and 16 x 12 cm right psoas muscle hematoma. Fluid around liver and spleen. Right-sided nephrolithiasis CTA abdomen 02/28 - possible blushing around iliac/lumbar vessels Discussed with IR. s/p attempted embolization CT abdomen and pelvis 02/10 atrophic left kidney. Bilateral inguinal hernias fat- containing. Nonobstructing 12 mm right kidney stone repeat CT abd/pelvis did not show evidence of obstruction. patient clinically has been having diarrhea (c. diff negative 02/19). also with nausea/vomiting of unclear etiology. EGD/Colonoscopy-02/22/17 showed gastritis esophagitis, hiatal hernia, diverticulosis and multiple polyps in descending colon and sigmoid which were snared biopsied. Biopsy pending Dr. Lewis consulted for intervention if needed for elevated IAP. will continue to check as needed Previously on on tube feeds with Nepro 50 cc an hour today. Lansoprazole for GI prophylaxis Speech therapy to evaluate swallow today postextubation FEN/RENAL: Acute kidney injury in the setting of Chronic kidney disease stage 3-4 History of uric acid kidney stones with prior stent BPH Nonfunctioning left kidney Acute intravascular volume overload Hypernatremia Hypophosphatemia Sloan placed due to urinary retention and worsening creatinine. Monitor intake and output q1hr. Monitor electrolytes. RIOS/SPEP negative. 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 Recommended nephrostomy tube if obstruction Nephrology consulted may need ultrafiltration again today for volume removal. Due to acute illness holding tamsulosin 0.4 mg by mouth daily for BPH Free water 200 mL q4h for hypernatremia ICU electrolyte replacement protocol daily BMP 15 mmol K-Phos today. Recheck in a.m. ID: Septic shock- resolved. Abscess and Suppurative thrombophlebitis left upper extremity MSSA bacteremia Klebsiella UTI ESBL positive Acute aspiration pneumonia/HCAP Broad-spectrum antibiotics with oxacillin 2 g IV every 4 hours till March 26 initially. This is been held in light of current change to regimen to fluconazole, ertapenem and vancomycin intermittently dosed per ID. Added sulfamethoxazole/ trimethoprim 4 mg/80 mg 1 tablet twice a day today 03/11 per infectious disease Blood cultures 2, UA ESBL positive Klebsiella UTI Repeat blood cultures 2 and sputum 03/08 pending. Urine negative. ID on board. HEME: Acute blood loss anemia DVT, bilateral posterior tibial vein, IVC filter Septic thrombophlebitis with occlusive thrombus mid cephalic and basilic vein side Received 10 PRBC, 14 FFP, 2 platelets, 1 cryo-02/28 Past 24 hours received 3 units PRBCs Serial hemoglobins every 6 hours Recheck coags Ultrasound 01/23/17 - Bilateral lower extremity with occlusive posterior tibial vein DVTs. Heparin was initially started for DVT but was placed on hold due to LP with suspected traumatic tap. Currently holding full anticoagulation with enoxaparin 100 mg IV twice a day due to anemia as of 02/26 IVC filter was placed 01/25/17. Ultrasound LUE 02/10 occlusive thrombus mid cephalic vein, basilic vein.s. Transfuse 3 units PRBCs 02/27 Transfuse 2 units PRBCs 03/01. ENDO: Diabetes mellitus Hypoglycemia History of prior adrenal insufficiency with shock Gout EGD colonoscopy completed 02/22. gastritis and esophagitis, colon polyps Started Hydrocortisone 100 mg every 8 hours 02/21/17 (Recent high dose steroids use now hypotensive, hypoglycemic), start steroid taper. Currently at 50 twice a day Accu-Cheks to maintain euglycemia Novulin R every 4 hours. Insulin detemir 5 units twice a day/hold in view. MSK: Right distal ulna fracture. Dr. Nathan with orthopedics has evaluated and recommended nonoperative management. Right wrist splint in place. PROPH: Lansoprazole 30 mg twice a day twice a day for stress ulcer prophylaxis. Has IVC filter. Therapeutic enoxaparin currently on hold for retroperitoneal hematoma ACCESS: right IJ CVL placed 03/03. A left IJ hemodialysis catheter placed 03/01. Critical care time 35 minutes Problem Qualifiers (1) Aspiration pneumonia: (2) DVT (deep venous thrombosis): Qualified Codes: I82.443 - Acute embolism and thrombosis of tibial vein, bilateral (3) Acute renal failure: Qualified Codes: N17.9 - Acute kidney failure, unspecified (4) Diabetes mellitus: (5) Gout: Janes Aguiar MD Mar 12, 2017 09:40
[2017-03-12] MEDS: ATENOLOL 25 MG TAB PO SCH ×2 (10:00→21:00)
[2017-03-12] MEDS ORDERED: PHENYLEPHRINE INJ 160 MG in DEXTROSE 5% IN WATE 500 ML INJ 484 ML IV PRN ×2 (10:45)
[2017-03-12] MEDS ORDERED: SODIUM CHLOR 0.9% 1000 ML INJ 1,000 ML IV ONE (10:45)
[2017-03-12] MEDS ORDERED: ALBUMIN 5% INJ 500 ML IV ONE (10:45)
[2017-03-12] MEDS ORDERED: TERBUTALINE INJ 1 MG/ML AMP SQ PRN (10:45)
--- NOTE | 2017-03-12 12:46 | HHI.IDPN ---
Subjective Subjective Remarks Patient is a 62-year-old male, admitted to the hospital for evaluation of pain in his right wrist. He gave a history of falling about a week ago and apparently had immediate pain in the right wrist. He did not seek any medical attention initially because reportedly he was very busy. He eventually presented, and he was found to have a distal ulnar fracture on plain films. He also had some redness and swelling. Orthopedics saw the patient, and was being treated conservatively with the splint. During this hospitalization also he started complaining of generalized weakness but more so in his lower extremity than his upper extremity. He had swelling in both lower extremity which revealed evidence of DVT in the posterior tibial veins. Neurology had seen the patient and he underwent lumbar puncture which apparently was traumatic. Patient was therefore not given anticoagulation because of the traumatic LP, and he underwent placement of an IVC filter on January 25. Patient had another lumbar puncture on February 01. He was felt to have transverse myelitis, and he was given high-dose IV Solu-Medrol from January 27 to February 02. There was apparently some improvement in his weakness. The imaging studies done for his weakness showed some spinal stenosis, and neurosurgery was consult that and recommended that there was no surgical intervention to be done. Patient has been stabilizing, but last night apparently deteriorated, and he ended up getting intubated, and had significant hypotension requiring pressors. There was also an ultrasound done of his left upper extremity which showed DVT, and there was evidence of superior 2 thrombophlebitis. Vascular surgery was consult to it and he had IND on his left upper extremity. Patient has had some fevers since yesterday. 2 blood cultures were done yesterday and they're now reported as growing gram-positive cocci in [place] in clusters. He is currently sedated and intubated. He is on Levophed and vasopressin. A central line was placed as well as a femoral a line. He apparently had an IV in his left upper extremity and that was removed yesterday. Patient also has history of chronic kidney disease, and nephrology evaluated the patient. He was just being monitored for his renal insufficiency. Infectious disease consultation has been requested to evaluate the patient. Notes reviewed D/W RN Temps ok Extubated yesterday On nasal O2, tachypneic Awake and responding Antibiotics I attest that I obtained, updated or reviewed the home and current medications. Antibiotics - Invanz Bactrim Vanco intermittent dosing Current Medications Medications (Trade) Dose Ordered Sig/Rosalia Route Start Time Stop Time Status Last Admin (NS Flush) 2 ml UNSCH PRN IV FLUSH 01/23/17 00:30 02/01/17 05:07 (NS Flush) 2 ml BID IV FLUSH 01/23/17 09:00 03/12/17 09:13 (Zofran Inj) 4 mg Q6H PRN IVP 01/23/17 00:30 02/26/17 17:23 (Narcan Inj) 0.4 mg UNSCH PRN IV 01/23/17 00:30 (Edna-Colace) 1 tab BID PO 01/23/17 09:00 Future Hold 02/24/17 20:31 (Dulcolax Supp) 10 mg DAILY PRN RECTAL 01/23/17 00:30 (Lipitor) 10 mg HS PO 01/24/17 21:00 Future hold 03/10/17 20:01 (Glucagon Inj) 1 mg UNSCH PRN OTHER 02/11/17 05:45 02/18/17 18:53 (Flomax) 0.4 mg Q12HR PO 02/17/17 15:00 Future Hold 02/26/17 08:49 (Lovenox Inj) 100 mg Q12H SQ 02/18/17 12:00 Future Hold 02/26/17 16:20 (Lactinex) 1 tab TID PO 02/19/17 13:00 03/12/17 09:14 (Apresoline Inj) 10 mg Q30M PRN IV PUSH 02/20/17 11:45 03/11/17 12:37 (D50w (Vial) Inj) 25 ml UNSCH PRN IV PUSH 02/20/17 12:45 Sodium Chloride 1,000 ml @ 20 mls/hr Q24H IV 02/22/17 13:00 03/11/17 12:07 Oxacillin Sodium 2 gm/Sodium Chloride 100 ml @ 200 mls/hr Q4H IV 02/23/17 12:00 Future Hold 02/27/17 04:25 (Questran Light Pkt) 4 gm Q12HR PO 02/25/17 21:00 Future Hold 02/27/17 10:32 (Aldactone) 25 mg DAILY PO 02/27/17 09:00 Future Hold (Reglan Inj) 5 mg Q8HR IV PUSH 02/26/17 22:00 03/12/17 05:21 (Peridex 0.12% Liq) 15 ml BID@08,20 MT 02/28/17 08:00 03/12/17 09:13 (Albuterol Neb) 2.5 mg Q2HR NEB PRN NEB 02/28/17 07:45 (NovoLIN R SUPPLEMENTAL SCALE) 1 Q4HR SQ 02/28/17 08:00 03/11/17 04:54 Sodium Chloride 1,000 ml @ 0 mls/hr Q0M PRN OTHER 03/01/17 11:19 03/02/17 13:00 Sodium Chloride 1,000 ml @ 200 mls/hr Q5H PRN IV 03/01/17 11:19 Sodium Chloride 1,000 ml @ 0 mls/hr Q0M PRN OTHER 03/01/17 11:19 (Mannitol Inj) 12.5 gm UNSCH PRN IV 03/01/17 11:30 03/08/17 17:27 Albumin Human 100 ml @ 60 mls/hr UNSCH PRN IV 03/01/17 11:30 03/08/17 17:28 (NS Flush) 5 ml UNSCH PRN IV FLUSH 03/01/17 11:30 (Heparin Inj) UNSCH PRN .XX 03/01/17 11:30 03/02/17 13:00 (Gentamicin (Dialysis) Inj) 20 mg UNSCH PRN OTHER 03/01/17 11:30 03/08/17 17:28 (Tylenol) 650 mg UNSCH PRN PO 03/01/17 11:30 (Nitrostat Sl) 0.4 mg UNSCH PRN SL 03/01/17 11:30 (Gelfoam 12 Mm/7 Mm Top) 1 foam UNSCH PRN TOP 03/01/17 11:30 (NS Flush) UNSCH PRN IV FLUSH 03/01/17 13:00 (Heparin Inj) UNSCH PRN IV FLUSH 03/01/17 13:00 Ertapenem 1000 mg/ Sodium Chloride 100 ml @ 200 mls/hr Q24H IV 03/01/17 20:00 03/11/17 19:55 (NS Flush) DAILY IV FLUSH 03/04/17 09:00 03/12/17 11:02 (NS Flush) UNSCH PRN IV FLUSH 03/03/17 18:45 (Mag-Ox) 800 mg UNSCH PRN PO 03/05/17 07:45 03/07/17 14:00 Magnesium Sulfate 4 gm/Sodium Chloride 100 ml @ 50 mls/hr UNSCH PRN IV 03/05/17 07:45 Magnesium Sulfate 2 gm/Sodium Chloride 100 ml @ 50 mls/hr UNSCH PRN IV 03/05/17 07:45 03/08/17 14:29 Potassium Chloride 100 ml @ 50 mls/hr Q2H PRN IV 03/05/17 07:45 03/07/17 08:01 Potassium Chloride 100 ml @ 50 mls/hr Q2H PRN IV 03/05/17 07:45 Potassium Chloride 100 ml @ 50 mls/hr Q2H PRN IV 03/05/17 07:45 Potassium Chloride 100 ml @ 25 mls/hr UNSCH PRN IV 03/05/17 07:45 (K-Phos) 2,000 mg Q4H PRN PO 03/05/17 07:45 (K-Phos) 2,000 mg UNSCH PRN PO/TUBE 03/05/17 07:45 Potassium Phosphate 30 mmol/ Sodium Chloride 260 ml @ 42 mls/hr UNSCH PRN IV 03/05/17 07:45 Sodium Phosphate 30 mmol/Sodium Chloride 250 ml @ 42 mls/hr UNSCH PRN IV 03/05/17 07:45 (Roxicodone Intensol Liq) 10 mg Q4H PO 03/05/17 14:00 03/12/17 09:23 (Levemir Inj) 5 units BID SQ 03/07/17 21:00 03/11/17 08:25 (Prevacid Odt) 30 mg BID NG 03/07/17 21:00 03/12/17 09:14 (Tylenol 650 Mg/ 20 ml Liq) 650 mg Q6H PRN PO 03/09/17 10:15 (Lasix Inj) 40 mg BID@,18 IV PUSH 03/10/17 18:00 03/12/17 09:15 (Duoneb Neb) 1 ampule Q6HR NEB NEB 03/10/17 16:00 03/11/17 21:48 (Bactrim 400-80 Mg) 1 tab Q12HR PO 03/11/17 12:00 03/18/17 11:59 03/12/17 09:14 (Trandate Inj) 20 mg Q4H PRN IV 03/12/17 04:30 03/12/17 04:33 (Tenormin) 25 mg Q12HR PO 03/12/17 10:00 Phenylephrine HCl 160 mg/Dextrose 500 ml @ 7.5 mls/hr TITRATE PRN IV 03/12/17 10:45 (Brethine Inj) 1 mg UNSCH PRN SQ 03/12/17 10:45 Albumin Human 500 ml @ 250 mls/hr ONCE ONCE IV 03/12/17 10:45 03/12/17 12:44 Past Medical History Reviewed Allergies: Coded Allergies: levofloxacin (Verified Allergy, Severe, 01/22/17) Objective . Vital Signs Date Time Temp Pulse Resp B/P (MAP) Pulse Ox O2 Delivery O2 Flow Rate FiO2 03/12/17 10:34 23 03/12/17 09:09 100 Nasal Cannula 2.00 03/12/17 06:00 128 03/12/17 04:00 135 03/12/17 02:00 121 03/12/17 00:00 127 03/12/17 00:00 99.2 129 20 139/85 (103) 97 03/11/17 22:00 129 03/11/17 21:59 4 Nasal Cannula 95 03/11/17 20:00 98.9 120 14 118/99 (105) 99 03/11/17 20:00 120 03/11/17 19:00 98 Nasal Cannula 4.00 03/11/17 18:49 98 Nasal Cannula 4.00 03/11/17 18:00 112 03/11/17 16:00 98.8 118 21 144/76 (98) 99 03/11/17 16:00 118 03/11/17 14:00 119 03/12/17 03/12/17 03/13/17 15:00 23:00 07:00 Intake Total 1000 ml Balance 1000 ml IV Total 1000 ml . Laboratory Tests Test 03/11/17 04:40 03/12/17 04:00 White Blood Count 12.0 TH/MM3 14.0 TH/MM3 Red Blood Count 2.59 MIL/MM3 3.15 MIL/MM3 Hemoglobin 7.6 GM/DL 9.1 GM/DL Hematocrit 23.3 % 27.9 % Mean Corpuscular Volume 90.0 FL 88.8 FL Mean Corpuscular Hemoglobin 29.2 PG 28.8 PG Mean Corpuscular Hemoglobin Concent 32.4 % 32.5 % Red Cell Distribution Width 15.4 % 15.1 % Platelet Count 174 TH/MM3 286 TH/MM3 Mean Platelet Volume 8.3 FL 8.1 FL Laboratory Tests Test 03/11/17 04:40 03/12/17 04:00 Blood Urea Nitrogen 63 MG/DL 64 MG/DL Creatinine 1.56 MG/DL 1.52 MG/DL Random Glucose 177 MG/DL 82 MG/DL Calcium Level 7.9 MG/DL 8.6 MG/DL Phosphorus Level 2.5 MG/DL 2.3 MG/DL Magnesium Level 2.0 MG/DL 1.9 MG/DL Sodium Level 147 MEQ/L 147 MEQ/L Potassium Level 3.6 MEQ/L 3.6 MEQ/L Chloride Level 115 MEQ/L 116 MEQ/L Carbon Dioxide Level 22.4 MEQ/L 23.3 MEQ/L Anion Gap 10 MEQ/L 8 MEQ/L Estimat Glomerular Filtration Rate 45 ML/MIN 47 ML/MIN Imaging Chest X-Ray 03/02/17 0600 Signed Impressions: Service Date/Time: Thursday, March 02, 2017 01:56 - CONCLUSION: 1. Supine apparatus in good position. Bilateral space disease, left greater than right. Left-sided pleural effusion similar to prior exam. Trace Holloway MD Aortography 02/28/17 0000 Signed Impressions: Service Date/Time: Tuesday, February 28, 2017 08:01 - CONCLUSION: 1. Active hemorrhage from distal right lateral sacral and iliolumbar branches successfully coil and Gelfoam embolized, as above. Juan Bhakta MD Abdomen/Pelvis CT 02/28/17 0000 Signed Impressions: Service Date/Time: Tuesday, February 28, 2017 06:51 - CONCLUSION: 1. The right retroperitoneal hematoma has increased in size, as above. There are 2 serpiginous arterially enhancing structures visualized, one in the right psoas muscle and another extending into the hematoma at the right iliac fossa. These could represent sites of continued active bleeding. 2. Stable moderate size left and small right pleural effusion with associated compressive atelectasis. 3. Stable small volume of free fluid in the abdomen and pelvis. There is also anasarca. The findings concerning the retroperitoneal hematoma were discussed with Dr. Aguiar via telephone at approximately 7: 10 AM on 02/28/2017. Angelo Allen MD Chest CT 02/27/17 0000 Signed Impressions: Service Date/Time: Monday, February 27, 2017 18:12 - CONCLUSION: 1. Bilateral pleural effusions with bibasilar atelectasis, left greater than right. Tom Sanchez MD Abdomen X-Ray 02/26/17 0000 Signed Impressions: Service Date/Time: Sunday, February 26, 2017 14:52 - CONCLUSION: 1. Nonobstructive bowel gas pattern. Juan Bhakta MD Upper Extremity Ultrasound 02/10/17 0000 Signed Impressions: Service Date/Time: Friday, February 10, 2017 18:46 - CONCLUSION: Occlusive thrombus in the cephalic and basilic veins. Benjamin Person MD Lung Scan- Nuclear Medicine 02/10/17 0000 Signed Impressions: Service Date/Time: Friday, February 10, 2017 22:17 - CONCLUSION: Low probability pulmonary embolism. Candido Patton MD Head CT 02/10/17 0000 Signed Impressions: Service Date/Time: Friday, February 10, 2017 23:51 - CONCLUSION: Negative noncontrast CT brain. Candido Patton MD Wrist X-Ray 02/06/17 0000 Signed Impressions: Service Date/Time: Monday, February 06, 2017 12:50 - CONCLUSION: Minimally displaced distal radius and ulnar fractures. Armando Dodd MD Lumbar Puncture Fluoroscopy 02/01/17 0000 Signed Impressions: Service Date/Time: January 09:35 - CONCLUSION: Uncomplicated fluoroscopically guided lumbar puncture. CSF was clear. Nabeel Peralta MD Head Magnetic Resonance Angiography 01/27/17 0000 Signed Impressions: Service Date/Time: Friday, January 27, 2017 10:33 - CONCLUSION: No intracranial vascular abnormality is identified. There is no aneurysm visualized. Angelo Allen MD IVC Filter Placement X-Ray 01/25/17 0000 Signed Impressions: Service Date/Time: January 10:29 - CONCLUSION: Uncomplicated inferior vena cava filter placement as above. Yung Fowler MD Thoracic Spine MRI 01/24/17 Signed Impressions: Service Date/Time: Tuesday, January 24, 2017 22:29 - CONCLUSION: 1. Mild degenerative spondylosis most prominently at T11-L1 with slight effacement of the anterior thecal sac and left lateral recess. No significant neural foraminal stenosis. 2. No acute fracture. Juan Bhakta MD Renal Ultrasound 01/23/17 Signed Impressions: Service Date/Time: Monday, January 23, 2017 08:53 - CONCLUSION: 1. Evidence of chronic parenchymal disease of both kidneys. No obstructive uropathy or other acute abnormality demonstrated. 2. Trace ascites, nonspecific. Angelo Garrido MD Lumbar Spine MRI 01/23/17 Signed Impressions: Service Date/Time: Monday, January 23, 2017 17:01 - CONCLUSION: 1. At L4-5 is a broad-based disc protrusion with severe central canal and lateral recess stenosis and flattening of the exiting right L4 nerve root. 2. L5-S1 there is a disc protrusion and moderate stenosis with flattening of the exiting L5 nerve roots bilaterally. 3. At L3-4 there is a moderate to severe central stenosis and lateral recess stenosis with mild foraminal stenosis. 4. No acute fracture or spondylolisthesis. Trace Holloway MD Lower Extremity Ultrasound 01/23/17 Signed Impressions: Service Date/Time: Monday, January 23, 2017 09:53 - CONCLUSION: Bilateral focal lower extremity DVT involving the posterior tibial veins. Angelo Garrido MD Cervical Spine MRI 01/23/17 Signed Impressions: Service Date/Time: Monday, January 23, 2017 17:01 - CONCLUSION: 1. Multilevel cervical spine degenerative changes as above. 2. Mild degrees of spinal stenosis at C3/C4-C6/C7. No cord compression or cord signal abnormality. 3. Age indeterminate left paracentral/foraminal disc protrusion at C6/C7. 4. Multilevel foraminal stenosis, most severe on the left at C6/C7. Please see individual levels above. 5. No fracture or subluxation of the cervical spine. Angelo Garrido MD Brain MRI 9/5/17 0000 Signed Impressions: Service Date/Time: Monday, January 23, 2017 17:01 - CONCLUSION: 1. No acute stroke or other acute intracranial abnormality demonstrated. 2. Moderate severity chronic white matter changes, nonspecific but most likely related to chronic small vessel disease. 3. Few scattered tiny lacunar infarcts of the brainstem. 4. Given the findings are not entirely specific, clinical evaluation for possible multiple sclerosis recommended. Angelo Garrido MD Knee X-Ray 01/22/172053 Signed Impressions: Service Date/Time: Sunday, January 22, 2017 21:17 - CONCLUSION: 1. Evidence of moderate to large joint effusion. 2. No acute fracture or malalignment. 3. Mild 3 compartment osteoarthritic change. Benjamin Person MD Hip and Pelvis X-Ray [id number]/22/[id number] Signed Impressions: Service Date/Time: Sunday, January 22, 2017 21:10 - CONCLUSION: 1. Mild to moderate degenerative change of both hips with no acute fracture or malalignment. There is flattening and remodeling of the right humeral head. Benjamin Person MD Chest X-Ray 02/24/17 0600 Signed Impressions: Service Date/Time: Friday, February 24, 2017 03:58 - CONCLUSION: 1. Unchanged left lower lobe infiltrate with small effusion. Candido Mendoza Jr., MD Chest X-Ray 02/20/17 0000 Signed Impressions: Service Date/Time: Monday, February 20, 2017 11:36 - CONCLUSION: 1. Stable very small right and small left pleural effusions with left lower lobe airspace consolidation. 2. No significant interval change. Juan Bhakta MD Abdomen/Pelvis CT 02/19/17 0000 Signed Impressions: Service Date/Time: Sunday, February 19, 2017 19:09 - CONCLUSION: 1. Areas of calcification seen in the right renal collecting system, right renal pelvis, and proximal right ureter. These appear to layer and be dependent suggesting likely to represent smaller areas of milk of calcium or small stones. There is mild dilatation of the right renal collecting system and right ureter. A definite obstructing stone at this time is not seen. 2. A small amount of air within the urinary bladder. This should be correlated with any recent catheterization. 3. Mild bilateral pleural effusions with accompanying atelectasis or consolidation at the left base. The consolidation was present previously. 4. Prominent degenerative change in the lumbar spine and at the hip joints bilaterally. Angelo Manzo MD Chest X-Ray 02/12/17 0600 Signed Impressions: Service Date/Time: Sunday, February 12, 2017 03:32 - CONCLUSION: 1. Support apparatus in good position. Relatively stable basilar airspace disease and pleural effusions. Trace Holloway MD Upper Extremity Ultrasound 02/10/17 0000 Signed Impressions: Service Date/Time: Friday, February 10, 2017 18:46 - CONCLUSION: Occlusive thrombus in the cephalic and basilic veins. Benjamin Person MD Lung Scan-V Nuclear Medicine 02/10/17 0000 Signed Impressions: Service Date/Time: Friday, February 10, 2017 22:17 - CONCLUSION: Low probability pulmonary embolism. Candido Patton MD Head CT 02/10/17 0000 Signed Impressions: Service Date/Time: Friday, February 10, 2017 23:51 - CONCLUSION: Negative noncontrast CT brain. Candido Patton MD Chest CT 02/10/17 0000 Signed Impressions: Service Date/Time: Friday, February 10, 2017 23:56 - CONCLUSION: Left lower lobe collapse with consolidation. Patchy infiltrates the medial right lower lung. Candido Patton MD Abdomen/Pelvis CT 02/10/17 0000 Signed Impressions: Service Date/Time: Friday, February 10, 2017 23:59 - CONCLUSION: 1. Nonobstructing 12 mm calcified stone lower pole right kidney. 2. Atrophic left kidney with significant cortical thinning. 3. Bilateral fat-containing inguinal hernias, large on the right, and moderate on the left. 4. Consolidative collapse of the left lower lobe. Candido Patton MD Abdomen X-Ray 02/10/17 0000 Signed Impressions: Service Date/Time: Friday, February 10, 2017 08:14 - CONCLUSION: No acute abdominal abnormality is identified. Angelo Allen MD Wrist X-Ray 02/06/17 0000 Signed Impressions: Service Date/Time: Monday, February 06, 2017 12:50 - CONCLUSION: Minimally displaced distal radius and ulnar fractures. Armando Dodd MD Lumbar Puncture Fluoroscopy 02/01/17 0000 Signed Impressions: Service Date/Time: January 09:35 - CONCLUSION: Uncomplicated fluoroscopically guided lumbar puncture. CSF was clear. Nabeel Peralta MD Head Magnetic Resonance Angiography 01/27/17 Signed Impressions: Service Date/Time: Friday, January 27, 2017 10:33 - CONCLUSION: No intracranial vascular abnormality is identified. There is no aneurysm visualized. Angelo Allen MD IVC Filter Placement X-Ray 01/25/17 Signed Impressions: Service Date/Time: January 10:29 - CONCLUSION: Uncomplicated inferior vena cava filter placement as above. Yung Fowler MD Thoracic Spine MRI 01/24/17 Signed Impressions: Service Date/Time: Tuesday, January 24, 2017 22:29 - CONCLUSION: 1. Mild degenerative spondylosis most prominently at T11-L1 with slight effacement of the anterior thecal sac and left lateral recess. No significant neural foraminal stenosis. 2. No acute fracture. Juan Bhakta MD Renal Ultrasound 01/23/17 Signed Impressions: Service Date/Time: Monday, January 23, 2017 08:53 - CONCLUSION: 1. Evidence of chronic parenchymal disease of both kidneys. No obstructive uropathy or other acute abnormality demonstrated. 2. Trace ascites, nonspecific. Angelo Garrido MD Lumbar Spine MRI 01/23/17 Signed Impressions: Service Date/Time: Monday, January 23, 2017 17:01 - CONCLUSION: 1. At L4-5 is a broad-based disc protrusion with severe central canal and lateral recess stenosis and flattening of the exiting right L4 nerve root. 2. L5-S1 there is a disc protrusion and moderate stenosis with flattening of the exiting L5 nerve roots bilaterally. 3. At L3-4 there is a moderate to severe central stenosis and lateral recess stenosis with mild foraminal stenosis. 4. No acute fracture or spondylolisthesis. Trace Holloway MD Lower Extremity Ultrasound 01/23/17 Signed Impressions: Service Date/Time: Monday, January 23, 2017 09:53 - CONCLUSION: Bilateral focal lower extremity DVT involving the posterior tibial veins. Angelo Garrido MD Cervical Spine MRI 01/23/17 Signed Impressions: Service Date/Time: Monday, January 23, 2017 17:01 - CONCLUSION: 1. Multilevel cervical spine degenerative changes as above. 2. Mild degrees of spinal stenosis at C3/C4-C6/C7. No cord compression or cord signal abnormality. 3. Age indeterminate left paracentral/foraminal disc protrusion at C6/C7. 4. Multilevel foraminal stenosis, most severe on the left at C6/C7. Please see individual levels above. 5. No fracture or subluxation of the cervical spine. Angelo Garrido MD Brain MRI 01/23/17 0000 Signed Impressions: Service Date/Time: Monday, January 23, 2017 17:01 - CONCLUSION: 1. No acute stroke or other acute intracranial abnormality demonstrated. 2. Moderate severity chronic white matter changes, nonspecific but most likely related to chronic small vessel disease. 3. Few scattered tiny lacunar infarcts of the brainstem. 4. Given the findings are not entirely specific, clinical evaluation for possible multiple sclerosis recommended. Angelo Garrido MD Knee X-Ray 01/22/172053 Signed Impressions: Service Date/Time: Sunday, January 22, 2017 21:17 - CONCLUSION: 1. Evidence of moderate to large joint effusion. 2. No acute fracture or malalignment. 3. Mild 3 compartment osteoarthritic change. Benjamin Person MD Hip and Pelvis X-Ray 01/22/172053 Signed Impressions: Service Date/Time: Sunday, January 22, 2017 21:10 - CONCLUSION: 1. Mild to moderate degenerative change of both hips with no acute fracture or malalignment. There is flattening and remodeling of the right humeral head. Benjamin Person MD Physical Exam GENERAL: Awake, following commands. Dyspneic, on nasal O2 SKIN: Cool and dry. No generalized rash. Still very edematous EYES: [place] conjunctiva. No petechia or hemorrhage. EARS, NOSE AND THROAT: Nose without bleeding or purulent nasal discharge. NECK: Trachea midline. Supple and no meningeal signs CARDIOVASCULAR: Regular rate and rhythm. Soft heart sounds. No murmurs, rubs or gallops heard RESPIRATORY: Coarse BS bilaterally, decreased at bases. ABDOMEN: Soft, mildly distended, some grimacing during palpation. EXTREMITIES: No clubbing, cyanosis. Edema both feet same; edema hands better : very swollen scrotum, has a lot of sediment in his cath tubing NEUROLOGICAL: following commands PSYCHIATRIC: not restless LINE: Lines with no evidence of infection Assessment & Plan Remarks IMPRESSION New fevers, better - now with Kled and Sten mal in sputum, tracheobronchitis, he is tolerating weaning Shock, due to large R retroperitoneal bleed, S/P multiple transfusions and S/ P coiling of bleeders, resolved Elevated amylase and lipase, better Anemia, due to bleed, retroperitoneal MSSA sepsis, due to suppurative thrombophlebitis LUE, S/P I and D and excision of portion of cephalic vein - needs Rx until Mar 25 Respiratory failure, has had several intubations - reintubated again 02/28, extubated 03/11 Recent Rx 7 days high dose solumedrol for transverse myelitis Wu LE DVT has IVC filter placed 01/25 - ?hypercoagulable state Chronic kidney disease, worsening creatinine - shock and compression of ureter by hematoma Known DM, HTN Gouty tophi both hands and feet Diarrhea, C diff negative UTI, GNR - repeat UA better, but a lot of sediment in the urine Thrombocytopenia, no evidence of DIC, ?meds, ?infection, ?due to bleed - improving RECOMMENDATION Dose of Vanco today - for Staph coverage Continue Invanz for the Kleb ESBL+ - give till 03/05 Continue Bactrim to cover Sten mal Follow C/S Monitor temps' Monitor progress D/W Irene Vogel MD Mar 12, 2017 12:46
--- NOTE | 2017-03-12 12:53 | HHI.NPPN ---
Subjective History of Present Illness 61-year-old with history of urinary stone Additional Remarks Patient is now extubated, has SOB. Review of Systems General Constitutional: Fatigue Objective Data Data 03/12/17 03/13/17 19:00 07:00 Intake Total 1000 ml Balance 1000 ml IV Total 1000 ml Vital Signs Date Time Temp Pulse Resp B/P (MAP) Pulse Ox O2 Delivery O2 Flow Rate FiO2 03/12/17 10:34 23 03/12/17 09:09 100 Nasal Cannula 2.00 03/12/17 06:00 128 03/12/17 04:00 135 03/12/17 02:00 121 03/12/17 00:00 127 03/12/17 00:00 99.2 129 20 139/85 (103) 97 03/11/17 22:00 129 03/11/17 21:59 4 Nasal Cannula 95 03/11/17 20:00 98.9 120 14 118/99 (105) 99 03/11/17 20:00 120 03/11/17 19:00 98 Nasal Cannula 4.00 03/11/17 18:49 98 Nasal Cannula 4.00 03/11/17 18:00 112 03/11/17 16:00 98.8 118 21 144/76 (98) 99 03/11/17 16:00 118 03/11/17 14:00 119 -: 03/12/17 0400 03/12/17 0400 Physical Exam General Appearance: No Acute Distress, Pale Eyes Eye Exam: Pupils Equal Throat Throat Exam: Oral Mucosa [place] & Moist Neck Neck Exam: Neck Supple Pulmonary Resp Exam: Crackles, Rhonchi, Decreased Bases, Diminished Breath Sounds Cardiology CV Exam: Normal Sinus Rhythm, Tachycardia Gastrointestinal/Abdomen GI Exam: Non-Tender, Distended Extremeties Extremities Exam: Pitting Edema, Dependent Edema Neurologic Neuro Exam: Awake Assessment/Plan Problem List: (1) Acute renal failure ICD Codes: N17.9 - Acute kidney failure, unspecified Status: Acute Plan: Patient developed Hypotension,sepsis staph aureus respiratory failure and increase WBC. Had aspiration pneumonia, developed sepsis with ARF again creatinine declined slightly post hydration he also had retroperitoneal bleed Elevated intra abdominal pressures - improved now. 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 need more UF tomorrow as massive edema he is extubated (2) CKD (chronic kidney disease) stage 3, GFR 30-59 ml/min ICD Codes: N18.3 - Chronic kidney disease, stage 3 (moderate) Status: Chronic Plan: Ultrasound revealed chronic kidney disease there is no kidney stones (3) Diabetes ICD Codes: E11.9 - Type 2 diabetes mellitus without complications Plan: Continue to monitor (4) Distal end of ulna fracture, closed ICD Codes: S52.609A - Unspecified fracture of lower end of unspecified ulna, initial encounter for closed fracture Status: Acute Plan: Orthopedic is following Problem Qualifiers (1) Acute renal failure: Qualified Codes: N17.9 - Acute kidney failure, unspecified Laura Liao MD Mar 12, 2017 12:53
[2017-03-12] MEDS ORDERED: VANCOMYCIN INJ 1,000 MG in SODIUM CHLOR 0.9% 250 ML INJ 250 ML IV ONE (13:30)
[2017-03-12] MEDS: SODIUM CHLOR 0.9% 1000 ML INJ 1,000 ML IV SCH (14:50)
[2017-03-12] MEDS: ERTAPENEM INJ 1,000 MG in SODIUM CHLORIDE 0.9% INJ 100 ML IV SCH (22:06)
[2017-03-12] MEDS: ATORVASTATIN 10 MG TAB PO SCH (22:07)
[2017-03-12 22:44] LABS: HEMATOCRIT 23.9 % (39.0-51.0); MEAN CELL VOLUME 90.7 FL (80.0-100.0); MEAN CORPUSCULAR HEMOGLOBIN 29.5 PG (27.0-34.0); MEAN CORPUSCULAR HGB CONC 32.6 % (32.0-36.0); PLATELET COUNT 226 TH/MM3 (150-450); RED BLOOD COUNT 2.63 MIL/MM3 (4.50-5.90); RED CELL DISTRIBUTION WIDTH 15.3 % (11.6-17.2); REVIEW FLAG FINAL; WHITE BLOOD COUNT 13.6 TH/MM3 (4.0-11.0)
[2017-03-13] VITALS (18 sets, daily range): BP systolic 91–110; BP diastolic 58–71; PULSE 92–124; RESP 19–25; TEMP 99.5–101.6; O2SAT 93–100
[2017-03-13] MEDS ORDERED: ETOMIDATE 40 MG/20 ML VIAL ONE (00:37)
[2017-03-13] MEDS ORDERED: SUCCINYLCHOLINE CHLORIDE 200 MG/10 ML VIAL ONE (00:38)
[2017-03-13] MEDS ORDERED: NOREPINEPHRINE-DEXTROSE DRIP 250 ML IV ONE (00:46)
[2017-03-13] MEDS: NOREPINEPHRINE INJ 4 MG in SODIUM CHLOR 0.9% 250 ML INJ 246 ML IV PRN ×2 (01:15→09:10)
--- NOTE | 2017-03-13 01:27 | RADRPT ---
EXAM DATE/TIME: 03/13/2017 01:52 [facility] COMPARISON: CHEST SINGLE AP, March 11, 2017, 5:10. INDICATIONS : Intubation. MEDICAL HISTORY : Chronic obstructive pulmonary disease. Diabetes mellitus type II. SURGICAL HISTORY : Renal Stents. ENCOUNTER: Subsequent ACUITY: 1 month PAIN SCORE: 0/10 LOCATION: Bilateral chest FINDINGS: A single view of the chest demonstrates bibasilar densities. Endotracheal tube tip not well-seen but appears to be 4.5 cm above roxanna. Bilateral jugular lines are stable. Nasogastric tube with tip in s [place].. Osseous structures are intact. CONCLUSION: 1. Bibasilar densities. 2. Endotracheal tube tip not well-seen but appears to be in good position. Armando Dodd MD on March 13, 2017 at 1:24 Board Certified Radiologist. This report was verified electronically.
[2017-03-13] MEDS: fentaNYL DRIP 250 ML IV PRN (01:30)
[2017-03-13] MEDS: MIDAZOLAM 100 MG/100 ML INJ 100 ML IV PRN (01:30)
[2017-03-13] MEDS ORDERED: ETOMIDATE 20 MG/10 ML VIAL IV PUSH STA (01:37)
[2017-03-13] MEDS: ACETAMINOPHEN 650 MG/20.3 ML UDC PO PRN (01:57)
[2017-03-13] MEDS: oxyCODONE HCL ORAL CONC 5 MG/0.25 ML SYRINGE PO SCH ×6 (02:00→22:26)
[2017-03-13] MEDS: LABETALOL HCL 100 MG/20 ML VIAL IV PRN (02:29)
[2017-03-13 02:57] LABS: BLOOD GAS BASE EXCESS -7.4 mmol/L (-2-2); BLOOD GAS CARBOXYHEMOGLOBIN 2.2 % (0-4); BLOOD GAS HCO3 18 mmol/L (22-26); BLOOD GAS METHEMOGLOBIN 1.7 % (0-2); BLOOD GAS O2 HGB SATURATION 90 % (90-100); BLOOD GAS OXYGEN CONTENT 10.8 Vol % (12.0-20.0); BLOOD GAS PCO2 40 mmHg (38-42); BLOOD GAS PO2 73 mmHg (61-120); BLOOD GAS TOTAL HGB 8.5 G/DL (12.0-16.0); TEMP CORR TO 98.6
[2017-03-13 02:58] LABS: CRITICAL VALUE YES; DRAW SITE RT BRACHIAL; FIO2 50 %; NUMBER OF ARTERIAL PUNCTURES 1; OXYGEN DEVICE VENTILATOR; STAT NO; ULNAR PULSE PRESENT; VENT SETTINGS PRVC/AC
[2017-03-13] MEDS ORDERED: SODIUM CHLOR 0.9% 1000 ML INJ 1,000 ML IV ONE ×2 (03:00)
[2017-03-13] MEDS: RESP: ALBUTEROL 2.5 MG/IPRATROPIUM 0.5 MG NEB (SCH) NEB ×4 (03:20→22:39)
[2017-03-13] MEDS ORDERED: ALTEPLASE RECOMBINANT 2 MG VIAL IV FLUSH ONE (03:30)
[2017-03-13] MEDS: INSULIN NovoLIN REGULAR SUPPLEMENTAL SCALE SQ SCH ×7 (04:00→23:52)
[2017-03-13 04:47] LABS: AUTOMATED NEUTROPHIL # 18.1 TH/MM3 (1.8-7.7); BASOPHIL # 0.1 TH/MM3 (0-0.2); BASOPHIL % 0.5 % (0.0-2.0); EOSINOPHIL # 0.3 TH/MM3 (0-0.4); EOSINOPHIL % 1.3 % (0.0-4.0); HEMATOCRIT 26.1 % (39.0-51.0); LYMPH % 6.7 % (9.0-44.0); LYMPHOCYTE # 1.4 TH/MM3 (1.0-4.8); MEAN CELL VOLUME 90.9 FL (80.0-100.0); MEAN CORPUSCULAR HEMOGLOBIN 29.1 PG (27.0-34.0); NEUT % 85.5 % (16.0-70.0); PLATELET COUNT 316 TH/MM3 (150-450); RED BLOOD COUNT 2.87 MIL/MM3 (4.50-5.90); RED CELL DISTRIBUTION WIDTH 15.7 % (11.6-17.2); WHITE BLOOD COUNT 21.1 TH/MM3 (4.0-11.0)
[2017-03-13 05:07] LABS: HEMO FLAGS AUTO DIFF
[2017-03-13 05:15] LABS: ALKALINE PHOSPHATASE 118 U/L (45-117); ALT (GPT) 23 U/L (12-78); ANION GAP 13 MEQ/L (5-15); AST (GOT) 42 U/L (15-37); BLOOD UREA NITROGEN 66 MG/DL (7-18); CHLORIDE 118 MEQ/L (98-107); GLOMERULAR FILTRATION RATE 40 ML/MIN (>89); MAGNESIUM 1.7 MG/DL (1.5-2.5); SODIUM (NA) 150 MEQ/L (136-145); TOTAL BILIRUBIN ADULT 0.7 MG/DL (0.2-1.0)
[2017-03-13 05:22] LABS: POTASSIUM 3.4 MEQ/L (3.5-5.1)
[2017-03-13 05:34] LABS: SCAN/DIFF AUTO DIFF CONFIRMED
[2017-03-13] MEDS: METOCLOPRAMIDE HCL 10 MG/2 ML VIAL IV PUSH SCH ×3 (05:40→21:08)
--- NOTE | 2017-03-13 05:40 | PD.PROCEDR ---
Procedure Note Procedure Endotracheal Intubation A time-out was completed verifying correct patient, procedure, site, positioning , and special equipment if applicable. The patient was placed in a flat position. Sedation was obtained using Etomidate 20mg. The patient was easily ventilated using an ambu bag. The [employer]/ MAC 4 BLADE was used and inserted into the oropharynx at which time there was a Grade 1 view of the vocal cords. A 8-yakut endotracheal tube was inserted and visualized going through the vocal cords. The stylette was removed. Colorimetric change was visualized on the CO2 meter. Breath sounds were heard in both lung allen equally. The endotracheal tube was placed at 23 cm, measured at the teeth. A chest x-ray was ordered to assess for pneumothorax and verify endotrachealtube placement. Estimated Blood Loss: 0 The patient tolerated the procedure well and there were no complications. Ananth Odonnell MD Mar 13, 2017 05:40
[2017-03-13] MEDS: INSULIN DETEMIR 100 UNITS/ML VIAL SQ SCH ×2 (09:00→20:36)
[2017-03-13] MEDS: SODIUM CHLORIDE 0.9% FLUSH 10 ML FLUSH IV FLUSH SCH ×3 (09:00→20:35)
[2017-03-13] MEDS: ATENOLOL 25 MG TAB PO SCH ×2 (09:00→20:36)
[2017-03-13] MEDS: CHLORHEXIDINE 0.12% (ORAL KIT) 15 ML CUP MT SCH ×2 (10:26→20:34)
[2017-03-13] MEDS: SULFAMETHOXAZOLE-TRIMETHOPRIM 400-80 MG TAB PO SCH ×2 (10:27→20:36)
[2017-03-13] MEDS: LACTOBACILLUS ACIDOPHILUS TAB PO SCH ×3 (10:27→18:00)
[2017-03-13] MEDS: LANSOPRAZOLE SOLUTAB 30 MG TAB NG SCH ×2 (10:27→20:35)
[2017-03-13] MEDS: FUROSEMIDE 40 MG/4 ML VIAL IV PUSH SCH ×2 (10:27→18:00)
[2017-03-13] MEDS ORDERED: NOREPINEPHRINE INJ 16 MG in SODIUM CHLOR 0.9% 250 ML INJ 234 ML IV PRN (10:45)
--- NOTE | 2017-03-13 11:28 | HHI.NPPN ---
Subjective History of Present Illness 61-year-old with history of urinary stone Additional Remarks Patient is reintubated and has hypotension given fluid boluses Review of Systems General Constitutional: Fatigue Objective Data Data Vital Signs Date Time Temp Pulse Resp B/P (MAP) Pulse Ox O2 Delivery O2 Flow Rate FiO2 03/13/17 09:10 90 112/70 03/13/17 07:44 98 40 03/13/17 06:41 21 03/13/17 06:00 96 03/13/17 06:00 96 95/59 03/13/17 04:04 100 50 03/13/17 04:00 107 03/13/17 04:00 50 03/13/17 04:00 100.4 107 25 108/71 (83) 99 03/13/17 03:00 30 03/13/17 02:00 121 03/13/17 01:15 124 87/57 03/13/17 01:11 100 50 03/13/17 01:00 50 03/13/17 00:00 124 03/13/17 00:00 101.6 124 24 91/58 (69) 93 03/12/17 22:00 122 03/12/17 20:35 93 Nasal Cannula 4.00 03/12/17 20:00 136 03/12/17 20:00 99.9 118 34 145/84 (104) 100 03/12/17 19:00 100 Nasal Cannula 4.00 03/12/17 18:00 135 03/12/17 16:00 99.1 130 23 107/60 (76) 97 03/12/17 16:00 130 03/12/17 14:00 118 03/12/17 12:00 135 03/12/17 12:00 98.7 132 26 132/56 (81) 97 -: 03/13/17 0420 03/13/17 0420 Microbiology 03/13/17 Gram Stain, Received Pending 03/13/17 Sputum Culture, Received Pending Physical Exam General Appearance: Pale Eyes Eye Exam: Pupils Equal Throat Throat Exam: Oral Mucosa [place] & Moist Neck Neck Exam: Neck Supple Pulmonary Resp Exam: Crackles, Rhonchi, Decreased Bases, Diminished Breath Sounds Cardiology CV Exam: Normal Sinus Rhythm, Tachycardia Gastrointestinal/Abdomen GI Exam: Non-Tender, Distended Extremeties Extremities Exam: Pitting Edema, Dependent Edema Neurologic Neuro Exam: Awake Assessment/Plan Problem List: (1) Acute renal failure ICD Codes: N17.9 - Acute kidney failure, unspecified Status: Acute Plan: Patient developed Hypotension,sepsis staph aureus respiratory failure and increase WBC. Had aspiration pneumonia, developed sepsis with ARF again creatinine declined slightly post hydration he also had retroperitoneal bleed Elevated intra abdominal pressures - improved now. 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 He was tried on sodium modeling and hemodialysis combined with ultrafiltration He did tolerated well about 5 L of fluid will be taken off He has generalized anasarca On ventilator Prognosis guarded K 3.4 10 milliequivalents IV ordered (2) CKD (chronic kidney disease) stage 3, GFR 30-59 ml/min ICD Codes: N18.3 - Chronic kidney disease, stage 3 (moderate) Status: Chronic Plan: Ultrasound revealed chronic kidney disease there is no kidney stones (3) Diabetes ICD Codes: E11.9 - Type 2 diabetes mellitus without complications Plan: Continue to monitor (4) Distal end of ulna fracture, closed ICD Codes: S52.609A - Unspecified fracture of lower end of unspecified ulna, initial encounter for closed fracture Status: Acute Plan: Orthopedic is following Problem Qualifiers (1) Acute renal failure: Qualified Codes: N17.9 - Acute kidney failure, unspecified Laura Liao MD Mar 13, 2017 11:28
[2017-03-13] MEDS: GENTAMICIN SULFATE (DIALYSIS USE ONLY) 20 MG/2 ML VIAL OTHER PRN (11:52)
--- NOTE | 2017-03-13 12:03 | HHI.CCPN ---
Subjective Remarks/Hospital Course Date of admission: 01/22 Date of critical care medicine consult 02/10 due to acute hypoxemic respiratory failure requiring emergent intubation 62-year-old male with a past medical history of hypertension, hyperlipidemia, diabetes mellitus, gout, uric acid kidney stones, kidney disease of unknown stage who originally presented to [facility] emergency department on 01/22 after a fall in which he sustained a right distal ulna fracture. He had been experiencing a gradual primarily lower extremity weakness as well as upper extremity weakness that was progressive. Neurology consult was obtained. MRI revealed no acute stroke. He had multifocal white matter changes. Tiny lacunar infarcts of the brainstem. Lumbar MRI report states L4-L5 disc protrusion with cetnral canal stenosis. Dr. Blackwell evaluated and states no cord compression on MRI C/T spine and recommended nonoperative management. Symptoms were felt to be consistent with transverse myelitis and he underwent Solumedrol 250 mg IV q6 hours 01/27-02/02. He also was found to have occlusive thrombus in the bilateral posterior tibial veins. Heparin was being avoided because he had traumatic lumbar puncture on 01/26 and 02/01. IVC filter was placed 01/25. He was undergoing physical therapy, reportedly making some improvements with plan to eventually discharged home with his son (max assist standing, and bed to chair per PT note). Apparently he had some vomiting the evening of 02/09 and additional vomiting on 02/10. He had a fever 102.8 on 02/09. Last recorded bowel movement was 02/03. Tonight he had acute onset of severe hypoxemia and respiratory distress. [facility] called and he was brought emergently to [facility] where his sats were 64% on 100% nonrebreather with mean arterial pressure 44. He was emergently intubated, CVL and art line placed. He is in septic shock. SUBJ: 02/11: Patient remains intubated sedated, critically ill. FiO2 reduced to 80% after increasing PEEP to 12. In severe septic shock Levophed at 16 mcg/m, vasopressin at 0.04 international units. D/W vascular surgery Dr. Enciso. He performed bedside Left upper extremity incision and debridement and excision of septic cephalic vein. 02/12: Remains intubated sedated profoundly septic, in shock on vasopressin and 7 mcg/min Levophed. FiO2 has improved to 45%, WBC count remains elevated with 20 ,000 white count significant left shift. Slight improvement in creatinine 2.9 urine output 750 ml 24 hours. 2-D echo shows LV ejection fraction 20-25%, no vegetation reported. Blood cultures 4 staph aureus. Wound culture pending 02/13: Remains critically ill but stable to improving. WBC count is down to 16, creatinine improving to 2.36. Off all pressors. Urine output also improving. 1.5L in 24 hours 02/14: Extubated 02/13. Tolerating well. WBC now down to 12.8. Creat improving 2.3 to 2. UO 3.4L. remains off all pressors. Was started on Precedex yesterday night for agitation, currently on 0.5 g per KG per hour. Chest x-ray shows left more than right air space disease 02/20/17 Re consult: 62-year-old male who was originally admitted for lower extremity weakness and found to have what was thought to be possible transverse myelitis. His hospital course his included a healthcare associated pneumonia, septic thrombophlebitis, DVT. He was most recently in the hospital floor where he had significant nausea and vomiting and diarrhea. His C. difficile test was recently negative. However, he has experienced worsening acute on chronic renal failure, hypotension, tachycardia, and severe hypoxemia. He did have a bout of vomiting earlier today, and his hospitalist attending suspects that he may have aspirated. He arrives by rapid response to the ICU with a nonrebreather in place in severe respiratory distress with SPO2 of 85%. I emergently intubate the patient, see separate procedure note for details. At this point the patient was hypotensive and tachycardic. He does have a history of an EF of 20%, however clinically he appears in florid septic shock. I placed central line and arterial line started vasopressors and gentle IV fluid resuscitation with 1 L of LR. Patient today was empirically broadened to vancomycin and Zosyn from his oxacillin which was initially treating MSSA bacteremia. He is recultured. Critical-care medicine is consulted to evaluate and manage his worsening multiorgan system failure and decompensated septic shock 02/21: Patient remains intubated sedated. Becomes anxious tachypnea on sedation lightening. Chest x-ray shows mild left lower lobe infiltrate. WBC count is slightly improved today from 23.2 t0 21. C Diff negative. UO adequate, creat slightly worsening. 1.57 today 02/22: Remains intubated sedated tolerated CPAP yesterday, plan is for EGD/ Colonscopy. WBC count back to normal. UO adequate. Creat stable 02/23: Tolerating CPAP trials following commands. Will do a spontaneous breathing trials. Status post EGD colonoscopy yesterday -Gastritis, esophagitis. Diverticulosis and multiple polyps. Urine output adequate but creatinine increasing to 1.7 with patient requiring multiple straight catheterization. We'll reinsert Sloan. 02/24: Breathing comfortably 24 hours after extubation. Protects airway well. 02/25: Excoriate bottom, will place rectal FMS. Start pureed diet. 02/26: Afebrile. Complaining of nausea and vomiting this afternoon. Increased stool output. Continue potassium replacement today. 02/27: 10 PM overnight, acutely hypotensive. Received 3 units PRBCs. Antibiotic coverage broadened to piperacillin/tazobactam, cortisol and 1 dose of vancomycin. Oxacillin drip currently on hold. Symptomatically, patient continues to vague abdominal pain/nausea vomiting which is unchanged for the past several days. Lipase elevated yesterday. Lactic acid normal. Troponin normal. Urinary retention after removal of Sloan. Straight catheter 1300. Cc 02/28: New diagnosis large retroperitoneal hematoma. Received 10 PRBC, 14 FFP, 2 platelets, 1 cryo-, 6 g calcium chloride, 2 is magnesium sulfate and 4 mg Bumex. CTA abdomen revealed possible arterial bleeds iliac, lumbar. Patient is currently on norepinephrine and epinephrine drips and possible need right nephrostomy tube placement due to large hematoma compressing ureter. Intra-abdominal bladder pressures are currently 13 03/01: Afebrile. Received 25 g albumin and 1 unit PRBCs overnight. Intra- abdominal bladder pressures currently 19. Currently on 3 micrograms per minute of norepinephrine. [id number] 1 out of 4 on 4 mics grams per kilogram per minute of cisatracurium. 03/02: Slightly hypothermic overnight. Hemoglobin appears to have stabilized. Troponin bump overnight likely secondary to demand ischemia from hypotension. Hemodynamically stable off all vasopressors. 03/03: Received 1 PRBCs overnight. 3 units currently. Off all vasopressors. Likely rebleeding. Stool is dark. 03/04: Remains unstable. Ventilator dependent. 03/05: afebrile. hgb stable. 03/06: bumex drip started overnight. good uop after bumex initiated. still grossly volume overloaded. Cr downtrending. more awake with transition to propofol. still too volume overloaded to tolerate extubation. hgb stable. 03/07: Afebrile. Tolerating tube feeds at goal with Nepro. Positive BM. On low-dose fentanyl and propofol drips. Potassium currently being replaced. 03/08: Eyes will open on ventilator. Afebrile. Tolerating tube feeding. Failed PSV trial yesterday due to apnea. 03/09: Following commands. Tmax 101. Tolerating tube feeding. One hour PSV trial yesterday. Currently tolerating well so far today 1.5 hours 03/10: Low-grade temperatures. Tolerating PSV trial 10 hours yesterday. Currently at 5/5 at 35%. We'll probably attempt extubation a.m. after hemodialysis. 03/11: Extubated currently in 4 L nasal cannula. Thick secretions thick clear with cough. Currently afebrile. Tolerating diet previously. Subjective 03/12: Sleepy this morning but arouses. Following commands. Refusing diet at the present time. On 2 L nasal cannula. 03/13: Patient reintubated last night for worsening respiratory status. Currently sedated on mechanical ventilation. Became hypotensive following intubation and is on Levophed 20 mics per minute. Objective Vital Signs Date Time Temp Pulse Resp B/P (MAP) Pulse Ox O2 Delivery O2 Flow Rate FiO2 03/13/17 09:10 90 112/70 03/13/17 07:44 98 40 03/13/17 06:41 21 03/13/17 04:00 100.4 03/12/17 20:35 Nasal Cannula 4.00 Intake and Output 03/13/17 03/13/17 03/14/17 08:00 16:00 00:00 Intake Total 2898.6 ml Output Total 600 ml Balance 2298.6 ml Result Diagram: 03/13/1741903/13/17 042 Other Results Laboratory Tests Test 03/12/17 22:15 03/13/17 02:39 03/13/17 04:20 White Blood Count 13.6 TH/MM3 21.1 TH/MM3 Red Blood Count 2.63 MIL/MM3 2.87 MIL/MM3 Hemoglobin 7.8 GM/DL 8.4 GM/DL Hematocrit 23.9 % 26.1 % Mean Corpuscular Volume 90.7 FL 90.9 FL Mean Corpuscular Hemoglobin 29.5 PG 29.1 PG Mean Corpuscular Hemoglobin Concent 32.6 % 32.0 % Red Cell Distribution Width 15.3 % 15.7 % Platelet Count 226 TH/MM3 316 TH/MM3 Mean Platelet Volume 8.2 FL 8.1 FL Blood Gas Puncture Site RT BRACHIAL Blood Gas Patient Temperature 98.6 Blood Gas HCO3 18 mmol/L Blood Gas Base Excess -7.4 mmol/L Blood Gas Oxygen Saturation 90 % Arterial Blood pH 7.28 Arterial Blood Partial Pressure CO2 40 mmHg Arterial Blood Partial Pressure O2 73 mmHg Arterial Blood Oxygen Content 10.8 Vol % Arterial Blood Carboxyhemoglobin 2.2 % Arterial Blood Methemoglobin 1.7 % Blood Gas Hemoglobin 8.5 G/DL Oxygen Delivery Device VENTILATOR Blood Gas Ventilator Setting PRVC/AC Blood Gas Inspired Oxygen 50 % Neutrophils (%) (Auto) 85.5 % Lymphocytes (%) (Auto) 6.7 % Monocytes (%) (Auto) 6.0 % Eosinophils (%) (Auto) 1.3 % Basophils (%) (Auto) 0.5 % Neutrophils # (Auto) 18.1 TH/MM3 Lymphocytes # (Auto) 1.4 TH/MM3 Monocytes # (Auto) 1.3 TH/MM3 Eosinophils # (Auto) 0.3 TH/MM3 Basophils # (Auto) 0.1 TH/MM3 CBC Comment AUTO DIFF Differential Comment AUTO DIFF CONFIRMED Blood Urea Nitrogen 66 MG/DL Creatinine 1.73 MG/DL Random Glucose 100 MG/DL Total Protein 5.3 GM/DL Albumin 2.1 GM/DL Calcium Level 7.9 MG/DL Phosphorus Level 4.0 MG/DL Magnesium Level 1.7 MG/DL Alkaline Phosphatase 118 U/L Aspartate Amino Transf (AST/SGOT) 42 U/L Alanine Aminotransferase (ALT/SGPT) 23 U/L Total Bilirubin 0.7 MG/DL Sodium Level 150 MEQ/L Potassium Level 3.4 MEQ/L Chloride Level 118 MEQ/L Carbon Dioxide Level 19.0 MEQ/L Anion Gap 13 MEQ/L Estimat Glomerular Filtration Rate 40 ML/MIN Random Vancomycin Level 23.7 COMMENT Imaging Last Impressions Chest X-Ray 03/11/17 0600 Signed Impressions: Service Date/Time: Saturday, March 11, 2017 05:10 - CONCLUSION: 1. No significant change in the bibasilar densities. 2. Small left effusion. Benjamin Person MD Aortography 02/28/17 0000 Signed Impressions: Service Date/Time: Tuesday, February 28, 2017 08:01 - CONCLUSION: 1. Active hemorrhage from distal right lateral sacral and iliolumbar branches successfully coil and Gelfoam embolized, as above. Juan Bhakta MD Abdomen/Pelvis CT 02/28/17 0000 Signed Impressions: Service Date/Time: Tuesday, February 28, 2017 06:51 - CONCLUSION: 1. The right retroperitoneal hematoma has increased in size, as above. There are 2 serpiginous arterially enhancing structures visualized, one in the right psoas muscle and another extending into the hematoma at the right iliac fossa. These could represent sites of continued active bleeding. 2. Stable moderate size left and small right pleural effusion with associated compressive atelectasis. 3. Stable small volume of free fluid in the abdomen and pelvis. There is also anasarca. The findings concerning the retroperitoneal hematoma were discussed with Dr. Aguiar via telephone at approximately 7: 10 AM on 02/28/2017. Angelo Allen MD Chest CT 02/27/17 0000 Signed Impressions: Service Date/Time: Monday, February 27, 2017 18:12 - CONCLUSION: 1. Bilateral pleural effusions with bibasilar atelectasis, left greater than right. Tom Sanchez MD Abdomen X-Ray 02/26/17 0000 Signed Impressions: Service Date/Time: Sunday, February 26, 2017 14:52 - CONCLUSION: 1. Nonobstructive bowel gas pattern. Juan Bhakta MD Upper Extremity Ultrasound 02/10/17 0000 Signed Impressions: Service Date/Time: Friday, February 10, 2017 18:46 - CONCLUSION: Occlusive thrombus in the cephalic and basilic veins. Benjamin Person MD Lung Scan- Nuclear Medicine 02/10/17 0000 Signed Impressions: Service Date/Time: Friday, February 10, 2017 22:17 - CONCLUSION: Low probability pulmonary embolism. Candido Patton MD Head CT 02/10/17 0000 Signed Impressions: Service Date/Time: Friday, February 10, 2017 23:51 - CONCLUSION: Negative noncontrast CT brain. Candido Patton MD Wrist X-Ray 02/06/17 0000 Signed Impressions: Service Date/Time: Monday, February 06, 2017 12:50 - CONCLUSION: Minimally displaced distal radius and ulnar fractures. Armando Dodd MD Lumbar Puncture Fluoroscopy 02/01/17 0000 Signed Impressions: Service Date/Time: January 09:35 - CONCLUSION: Uncomplicated fluoroscopically guided lumbar puncture. CSF was clear. Nabeel Peralta MD Head Magnetic Resonance Angiography 01/27/17 0000 Signed Impressions: Service Date/Time: Friday, January 27, 2017 10:33 - CONCLUSION: No intracranial vascular abnormality is identified. There is no aneurysm visualized. Angelo Allen MD IVC Filter Placement X-Ray 01/25/17 0000 Signed Impressions: Service Date/Time: January 10:29 - CONCLUSION: Uncomplicated inferior vena cava filter placement as above. Yung Fowler MD Thoracic Spine MRI 01/24/17 0000 Signed Impressions: Service Date/Time: Tuesday, January 24, 2017 22:29 - CONCLUSION: 1. Mild degenerative spondylosis most prominently at T11-L1 with slight effacement of the anterior thecal sac and left lateral recess. No significant neural foraminal stenosis. 2. No acute fracture. Juan Bhakta MD Renal Ultrasound 01/23/17 0000 Signed Impressions: Service Date/Time: Monday, January 23, 2017 08:53 - CONCLUSION: 1. Evidence of chronic parenchymal disease of both kidneys. No obstructive uropathy or other acute abnormality demonstrated. 2. Trace ascites, nonspecific. Angelo Garrido MD Lumbar Spine MRI 01/23/17 0000 Signed Impressions: Service Date/Time: Monday, January 23, 2017 17:01 - CONCLUSION: 1. At L4-5 is a broad-based disc protrusion with severe central canal and lateral recess stenosis and flattening of the exiting right L4 nerve root. 2. L5-S1 there is a disc protrusion and moderate stenosis with flattening of the exiting L5 nerve roots bilaterally. 3. At L3-4 there is a moderate to severe central stenosis and lateral recess stenosis with mild foraminal stenosis. 4. No acute fracture or spondylolisthesis. Trace Holloway MD Lower Extremity Ultrasound 01/23/17 Signed Impressions: Service Date/Time: Monday, January 23, 2017 09:53 - CONCLUSION: Bilateral focal lower extremity DVT involving the posterior tibial veins. Angelo Garrido MD Cervical Spine MRI 01/23/17 Signed Impressions: Service Date/Time: Monday, January 23, 2017 17:01 - CONCLUSION: 1. Multilevel cervical spine degenerative changes as above. 2. Mild degrees of spinal stenosis at C3/C4-C6/C7. No cord compression or cord signal abnormality. 3. Age indeterminate left paracentral/foraminal disc protrusion at C6/C7. 4. Multilevel foraminal stenosis, most severe on the left at C6/C7. Please see individual levels above. 5. No fracture or subluxation of the cervical spine. Angelo Garrido MD Brain MRI 01/23/17 Signed Impressions: Service Date/Time: Monday, January 23, 2017 17:01 - CONCLUSION: 1. No acute stroke or other acute intracranial abnormality demonstrated. 2. Moderate severity chronic white matter changes, nonspecific but most likely related to chronic small vessel disease. 3. Few scattered tiny lacunar infarcts of the brainstem. 4. Given the findings are not entirely specific, clinical evaluation for possible multiple sclerosis recommended. Angelo Garrido MD Knee X-Ray 01/22/172053 Signed Impressions: Service Date/Time: Sunday, January 22, 2017 21:17 - CONCLUSION: 1. Evidence of moderate to large joint effusion. 2. No acute fracture or malalignment. 3. Mild 3 compartment osteoarthritic change. Benjamin Person MD Hip and Pelvis X-Ray 01/22/172053 Signed Impressions: Service Date/Time: Sunday, January 22, 2017 21:10 - CONCLUSION: 1. Mild to moderate degenerative change of both hips with no acute fracture or malalignment. There is flattening and remodeling of the right humeral head. Benjamin Person MD Objective Remarks GENERAL: 62-year-old male, resting in bed, orally intubated on mechanical ventilation HEENT: Normocephalic. Atraumatic. Pupils equal, round, reactive, conjugate by 3 mm bilaterally. NECK: Trachea is midline. Obese. No JVD or thyromegaly right IJ TLC, left IJ hemodialysis catheter clean dry and intact CHEST: Orally intubated on mechanical ventilation, air entry decreased bilaterally at bases, scattered rhonchi bilaterally, no wheezing CARDIOVASCULAR: tachy, RR. S1, S2. No S4 without murmur ABDOMEN distended. No rigidity. Umbilical hernia is reducible. : Positive scrotal edema MUSCULOSKELETAL: Pulses 2+. 1+ bilateral upper and lower extremity edema. Wound VAC on left upper extremity NEUROLOGICAL: Sedated, orally intubated on mechanical ventilation. Prior to intubation was moving all 4 extremities Procedures IVC filter placement 01/25/2017 LP 01/26/2017 Date of Insertion: Mar 03, 2017 Line: Central Venous Catheter Side: Right Location: Internal, Jugular A/P Problem List: (1) Septic shock ICD Code: A41.9 - Sepsis, unspecified organism; R65.21 - Severe sepsis with septic shock Status: Acute (2) Acute respiratory failure ICD Code: J96.00 - Acute respiratory failure, unspecified whether with hypoxia or hypercapnia Status: Acute (3) Thrombophlebitis arm ICD Code: I80.8 - Phlebitis and thrombophlebitis of other sites (4) Aspiration pneumonia ICD Code: J69.0 - Pneumonitis due to inhalation of food and vomit Status: Acute (5) Atelectasis of left lung ICD Code: J98.11 - Atelectasis Status: Acute (6) Quadriparesis ICD Code: G82.50 - Quadriplegia, unspecified Status: Acute (7) DVT (deep venous thrombosis) ICD Code: I82.409 - Acute embolism and thrombosis of unspecified deep veins of unspecified lower extremity (8) Altered mental status ICD Code: R41.82 - Altered mental status, unspecified Status: Acute (9) CKD (chronic kidney disease) stage 3, GFR 30-59 ml/min ICD Code: N18.3 - Chronic kidney disease, stage 3 (moderate) Status: Chronic (10) Acute renal failure ICD Code: N17.9 - Acute kidney failure, unspecified Status: Acute (11) Diabetes mellitus ICD Code: E11.9 - Type 2 diabetes mellitus without complications Status: Chronic (12) Distal end of ulna fracture, closed ICD Code: S52.609A - Unspecified fracture of lower end of unspecified ulna, initial encounter for closed fracture Status: Acute (13) Gout ICD Code: M10.9 - Gout, unspecified Status: Chronic Assessment and Plan NEURO/PSYCH: Acute metabolic encephalopathy- persistent Quadriparesis secondary to suspected transverse myelitis Recurrent falls Pain secondary to retroperitoneal hematoma. Suspected transverse myelitis. Received methylprednisolone 250 mg IV every 6 hours 01/27-02/02, started back on hydrocortisone 02/21/17, initially tapering to 50 mg IV every 8 hours starting received 1 dose at 2100 prior to becoming hypotensive. weaning hydrocortisone taper and will discontinue 03/09 LP 01/26 and 02/01. CSF culture negative 01/26, 02/01 Oligoclonal bands negative. CSF/serum IgG index is not elevated. VDRL nonreactive. Cryptococcal antigen negative. Brain MRI 01/23 no acute stroke. Few scattered lacunar infarcts of the brainstem. Moderate chronic white matter changes. MRI cervical/thoracic spine- mild spinal stenosis C3/C4 to C6/C7. No cord compression. RPR negative Neurology has been following, Dr. Crenshaw. Repeat CT brain 02/10 - negative Started on fentanyl and Versed drips following intubation on 03/13 for analgesia /sedation. Continue PT/OT RESP: Acute hypoxemic respiratory failure Healthcare associated pneumonia/Aspiration Pneumonia Right-sided chest tube placed for pleural effusion. continue mechanical ventilation, vent bundle, Albuterol/ipratropium aerosols every 6 hours with albuterol aerosols every 2 hours prn VQ scan 02/10 low probability for PE. CT chest 02/10 - left lower lobe collapse and consolidation. CT chest 02/27 revealed right greater than left pleural effusions. Extubated 02/23. Intubated 02/28. Extubated 03/11, Reintubated on 03/13. Right-sided chest tube placement 02/28 onboarding specialist, removed 03/05. Failed attempt to wean successfully due to volume overload and multiple organ failure. Will need tracheostomy. CV: Severe sepsis - resolved. Systolic heart failure likely chronic with ejection fraction 20-25% Hyperlipidemia History of hypertension Mild TR Sinus tachycardia Elevated troponin likely type II demand ischemia Restarted on Levophed on 03/09 for following intubation, currently on 20 mics per minute Holding metoprolol and amlodipine in light of recent hypotension. Restarting atenolol 25 mg twice a day/home medication atorvastatin 10 mg by mouth daily for dyslipidemia. Troponin 0.[address]-T changes. Patient denying chest discomfort. 2-D echocardiogram 01/11 revealed EF 20-25%. Mild TR. Pulmonary arterial pressures were normal around 20 Troponin 6.55 on 03/02 and trending downward. Likely will need stress test of heart once stable. Cannot anticoagulate due to retroperitoneal hematoma the present time Currently on furosemide 40 mg IV twice a day per nephrology. GI: Large right retroperitoneal hematoma Erosive esophagitis Adematous/hyperplastic colon polyps Severe acute protein calorie malnutrition Nausea/vomiting - resolved. Diarrhea Gastritis Diverticulosis Internal and external hemorrhoids Hiatal hernia Elevated lipase 02/27 CT chest/abdomen and pelvis - 9.4 x 7.5 renal and 16 x 12 cm right psoas muscle hematoma. Fluid around liver and spleen. Right-sided nephrolithiasis CTA abdomen 02/28 - possible blushing around iliac/lumbar vessels Discussed with IR. s/p attempted embolization CT abdomen and pelvis 02/10 atrophic left kidney. Bilateral inguinal hernias fat- containing. Nonobstructing 12 mm right kidney stone repeat CT abd/pelvis did not show evidence of obstruction. patient clinically has been having diarrhea (c. diff negative 02/19). also with nausea/vomiting of unclear etiology. EGD/Colonoscopy-02/22/17 showed gastritis esophagitis, hiatal hernia, diverticulosis and multiple polyps in descending colon and sigmoid which were snared biopsied. Biopsy pending Dr. Lewis consulted for intervention if needed for elevated IAP. will continue to check as needed Previously on on tube feeds with Nepro 50 cc an hour today. Lansoprazole for GI prophylaxis Speech therapy to evaluate swallow today postextubation FEN/RENAL: Acute kidney injury in the setting of Chronic kidney disease stage 3-4 History of uric acid kidney stones with prior stent BPH Nonfunctioning left kidney Acute intravascular volume overload Hypernatremia Hypophosphatemia Sloan placed due to urinary retention and worsening creatinine. Monitor intake and output q1hr. Monitor electrolytes. RIOS/SPEP negative. 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 Recommended nephrostomy tube if obstruction Nephrology consulted, hemodialysis per nephrology. Due to acute illness holding tamsulosin 0.4 mg by mouth daily for BPH Free water 200 mL q4h for hypernatremia ICU electrolyte replacement protocol ID: Septic shock- resolved. Abscess and Suppurative thrombophlebitis left upper extremity MSSA bacteremia Klebsiella UTI ESBL positive Acute aspiration pneumonia/HCAP Broad-spectrum antibiotics with oxacillin 2 g IV every 4 hours till March 26 initially. This is been held in light of current change to regimen to fluconazole, ertapenem and vancomycin intermittently dosed per ID. Added sulfamethoxazole/ trimethoprim 4 mg/80 mg 1 tablet twice a day today 03/11 per infectious disease Blood cultures 2, UA ESBL positive Klebsiella UTI Repeat blood cultures 2 and sputum 03/08 pending. Urine negative. ID on board. HEME: Acute blood loss anemia DVT, bilateral posterior tibial vein, IVC filter Septic thrombophlebitis with occlusive thrombus mid cephalic and basilic vein side Received 10 PRBC, 14 FFP, 2 platelets, 1 cryo-02/28 Past 24 hours received 3 units PRBCs Serial hemoglobins every 6 hours Recheck coags Ultrasound 01/23/17 - Bilateral lower extremity with occlusive posterior tibial vein DVTs. Heparin was initially started for DVT but was placed on hold due to LP with suspected traumatic tap. Currently holding full anticoagulation with enoxaparin 100 mg IV twice a day due to anemia as of 02/26 IVC filter was placed 01/25/17. Ultrasound LUE 02/10 occlusive thrombus mid cephalic vein, basilic vein.s. Transfuse 3 units PRBCs 02/27 Transfuse 2 units PRBCs 03/01. ENDO: Diabetes mellitus Hypoglycemia History of prior adrenal insufficiency with shock Gout EGD colonoscopy completed 02/22. gastritis and esophagitis, colon polyps Started Hydrocortisone 100 mg every 8 hours 02/21/17 (Recent high dose steroids use now hypotensive, hypoglycemic), start steroid taper. Currently at 50 twice a day Accu-Cheks to maintain euglycemia Novulin R every 4 hours. Insulin detemir 5 units twice a day/hold in view. MSK: Right distal ulna fracture. Dr. Nathan with orthopedics has evaluated and recommended nonoperative management. Right wrist splint in place. PROPH: Lansoprazole 30 mg twice a day twice a day for stress ulcer prophylaxis. Has IVC filter. Therapeutic enoxaparin currently on hold for retroperitoneal hematoma ACCESS: right IJ CVL placed 03/03. A left IJ hemodialysis catheter placed 03/01. Patient remains critically ill with worsening respiratory failure requiring reintubation, hypotension requiring Levophed. Consulted palliative care to assist with deciding goals of therapy as patient will require tracheostomy and PEG tube placement due to multiple failed attempts at extubation. Critical care time 35 minutes excluding procedures Problem Qualifiers (1) Aspiration pneumonia: (2) DVT (deep venous thrombosis): Qualified Codes: I82.443 - Acute embolism and thrombosis of tibial vein, bilateral (3) Acute renal failure: Qualified Codes: N17.9 - Acute kidney failure, unspecified (4) Diabetes mellitus: (5) Gout: Devin Puente MD Mar 13, 2017 12:03
[2017-03-13] MEDS: NOREPINEPHRINE INJ 16 MG in SODIUM CHLOR 0.9% 250 ML INJ 234 ML IV PRN (12:04)
[2017-03-13] MEDS ORDERED: POTASSIUM CHLOR 10 MEQ PREMIX 100 ML IV ONE (12:30)
[2017-03-13] MEDS: SODIUM CHLOR 0.9% 1000 ML INJ 1,000 ML IV SCH (13:00)
--- NOTE | 2017-03-13 13:50 | HHI.IDPN ---
Subjective Subjective Remarks Patient is a 62-year-old male, admitted to the hospital for evaluation of pain in his right wrist. He gave a history of falling about a week ago and apparently had immediate pain in the right wrist. He did not seek any medical attention initially because reportedly he was very busy. He eventually presented, and he was found to have a distal ulnar fracture on plain films. He also had some redness and swelling. Orthopedics saw the patient, and was being treated conservatively with the splint. During this hospitalization also he started complaining of generalized weakness but more so in his lower extremity than his upper extremity. He had swelling in both lower extremity which revealed evidence of DVT in the posterior tibial veins. Neurology had seen the patient and he underwent lumbar puncture which apparently was traumatic. Patient was therefore not given anticoagulation because of the traumatic LP, and he underwent placement of an IVC filter on January 25. Patient had another lumbar puncture on February 01. He was felt to have transverse myelitis, and he was given high-dose IV Solu-Medrol from January 27 to February 02. There was apparently some improvement in his weakness. The imaging studies done for his weakness showed some spinal stenosis, and neurosurgery was consult that and recommended that there was no surgical intervention to be done. Patient has been stabilizing, but last night apparently deteriorated, and he ended up getting intubated, and had significant hypotension requiring pressors. There was also an ultrasound done of his left upper extremity which showed DVT, and there was evidence of superior 2 thrombophlebitis. Vascular surgery was consult to it and he had IND on his left upper extremity. Patient has had some fevers since yesterday. 2 blood cultures were done yesterday and they're now reported as growing gram-positive cocci in [place] in clusters. He is currently sedated and intubated. He is on Levophed and vasopressin. A central line was placed as well as a femoral a line. He apparently had an IV in his left upper extremity and that was removed yesterday. Patient also has history of chronic kidney disease, and nephrology evaluated the patient. He was just being monitored for his renal insufficiency. Infectious disease consultation has been requested to evaluate the patient. Notes reviewed D/W RN reintubated last night Now on levophed Got HD this morning - took out 5L Temps ok Awake and responding Vanco level 23 Antibiotics I attest that I obtained, updated or reviewed the home and current medications. Antibiotics - Invanz Bactrim Vanco intermittent dosing Current Medications Medications (Trade) Dose Ordered Sig/Rosalia Route Start Time Stop Time Status Last Admin (NS Flush) 2 ml UNSCH PRN IV FLUSH 01/23/17 00:30 02/01/17 05:07 (NS Flush) 2 ml BID IV FLUSH 01/23/17 09:00 03/13/17 10:26 (Zofran Inj) 4 mg Q6H PRN IVP 01/23/17 00:30 02/26/17 17:23 (Narcan Inj) 0.4 mg UNSCH PRN IV 01/23/17 00:30 (Edna-Colace) 1 tab BID PO 01/23/17 09:00 Future Hold 02/24/17 20:31 (Dulcolax Supp) 10 mg DAILY PRN RECTAL 01/23/17 00:30 (Lipitor) 10 mg HS PO 01/24/17 21:00 Future hold 03/12/17 22:07 (Glucagon Inj) 1 mg UNSCH PRN OTHER 02/11/17 05:45 02/18/17 18:53 (Flomax) 0.4 mg Q12HR PO 02/17/17 15:00 Future Hold 02/26/17 08:49 (Lovenox Inj) 100 mg Q12H SQ 02/18/17 12:00 Future Hold 02/26/17 16:20 (Lactinex) 1 tab TID PO 02/19/17 13:00 03/13/17 13:14 (Apresoline Inj) 10 mg Q30M PRN IV PUSH 02/20/17 11:45 03/11/17 12:37 (D50w (Vial) Inj) 25 ml UNSCH PRN IV PUSH 02/20/17 12:45 Sodium Chloride 1,000 ml @ 20 mls/hr Q24H IV 02/22/17 13:00 03/12/17 14:50 Oxacillin Sodium 2 gm/Sodium Chloride 100 ml @ 200 mls/hr Q4H IV 02/23/17 12:00 Future Hold 02/27/17 04:25 (Questran Light Pkt) 4 gm Q12HR PO 02/25/17 21:00 Future Hold 02/27/17 10:32 (Aldactone) 25 mg DAILY PO 02/27/17 09:00 Future Hold (Reglan Inj) 5 mg Q8HR IV PUSH 02/26/17 22:00 03/13/17 13:14 (Peridex 0.12% Liq) 15 ml BID@08,20 MT 02/28/17 08:00 03/13/17 10:26 (Albuterol Neb) 2.5 mg Q2HR NEB PRN NEB 02/28/17 07:45 (NovoLIN R SUPPLEMENTAL SCALE) 1 Q4HR SQ 02/28/17 08:00 03/11/17 04:54 Sodium Chloride 1,000 ml @ 0 mls/hr Q0M PRN OTHER 03/01/17 11:19 03/02/17 13:00 Sodium Chloride 1,000 ml @ 200 mls/hr Q5H PRN IV 03/01/17 11:19 Sodium Chloride 1,000 ml @ 0 mls/hr Q0M PRN OTHER 03/01/17 11:19 (Mannitol Inj) 12.5 gm UNSCH PRN IV 03/01/17 11:30 03/08/17 17:27 Albumin Human 100 ml @ 60 mls/hr UNSCH PRN IV 03/01/17 11:30 03/08/17 17:28 (NS Flush) 5 ml UNSCH PRN IV FLUSH 03/01/17 11:30 (Heparin Inj) UNSCH PRN .XX 03/01/17 11:30 03/02/17 13:00 (Gentamicin (Dialysis) Inj) 20 mg UNSCH PRN OTHER 03/01/17 11:30 03/13/17 11:52 (Tylenol) 650 mg UNSCH PRN PO 03/01/17 11:30 (Nitrostat Sl) 0.4 mg UNSCH PRN SL 03/01/17 11:30 (Gelfoam 12 Mm/7 Mm Top) 1 foam UNSCH PRN TOP 03/01/17 11:30 (NS Flush) UNSCH PRN IV FLUSH 03/01/17 13:00 (Heparin Inj) UNSCH PRN IV FLUSH 03/01/17 13:00 Ertapenem 1000 mg/ Sodium Chloride 100 ml @ 200 mls/hr Q24H IV 03/01/17 20:00 03/15/17 23:00 03/12/17 22:06 (NS Flush) DAILY IV FLUSH 03/04/17 09:00 03/12/17 11:02 (NS Flush) UNSCH PRN IV FLUSH 03/03/17 18:45 (Mag-Ox) 800 mg UNSCH PRN PO 03/05/17 07:45 03/07/17 14:00 Magnesium Sulfate 4 gm/Sodium Chloride 100 ml @ 50 mls/hr UNSCH PRN IV 03/05/17 07:45 Magnesium Sulfate 2 gm/Sodium Chloride 100 ml @ 50 mls/hr UNSCH PRN IV 03/05/17 07:45 03/08/17 14:29 Potassium Chloride 100 ml @ 50 mls/hr Q2H PRN IV 03/05/17 07:45 03/07/17 08:01 Potassium Chloride 100 ml @ 50 mls/hr Q2H PRN IV 03/05/17 07:45 Potassium Chloride 100 ml @ 50 mls/hr Q2H PRN IV 03/05/17 07:45 Potassium Chloride 100 ml @ 25 mls/hr UNSCH PRN IV 03/05/17 07:45 (K-Phos) 2,000 mg Q4H PRN PO 03/05/17 07:45 (K-Phos) 2,000 mg UNSCH PRN PO/TUBE 03/05/17 07:45 Potassium Phosphate 30 mmol/ Sodium Chloride 260 ml @ 42 mls/hr UNSCH PRN IV 03/05/17 07:45 03/12/17 14:56 Sodium Phosphate 30 mmol/Sodium Chloride 250 ml @ 42 mls/hr UNSCH PRN IV 03/05/17 07:45 (Roxicodone Intensol Liq) 10 mg Q4H PO 03/05/17 14:00 03/13/17 05:41 (Levemir Inj) 5 units BID SQ 03/07/17 21:00 03/11/17 08:25 (Prevacid Odt) 30 mg BID NG 03/07/17 21:00 03/13/17 10:27 (Tylenol 650 Mg/ 20 ml Liq) 650 mg Q6H PRN PO 03/09/17 10:15 03/13/17 01:57 (Lasix Inj) 40 mg BID@,18 IV PUSH 03/10/17 18:00 03/13/17 10:27 (Duoneb Neb) 1 ampule Q6HR NEB NEB 03/10/17 16:00 03/13/17 10:10 (Bactrim 400-80 Mg) 1 tab Q12HR PO 03/11/17 12:00 03/18/17 11:59 03/13/17 10:27 (Trandate Inj) 20 mg Q4H PRN IV 03/12/17 04:30 03/13/17 02:29 (Tenormin) 25 mg Q12HR PO 03/12/17 10:00 Phenylephrine HCl 160 mg/Dextrose 500 ml @ 7.5 mls/hr TITRATE PRN IV 03/12/17 10:45 (Brethine Inj) 1 mg UNSCH PRN SQ 03/12/17 10:45 Midazolam HCl 100 ml @ 2 mls/hr TITRATE PRN IV 03/13/17 01:00 03/13/17 01:30 Fentanyl Citrate 250 ml @ 5 mls/hr TITRATE PRN IV 03/13/17 01:00 03/13/17 01:30 Norepinephrine Bitartrate 16 mg/ Sodium Chloride 250 ml @ 1.87 mls/hr TITRATE PRN IV 03/13/17 10:45 03/13/17 12:04 Vancomycin HCl 1000 mg/Sodium Chloride 250 ml @ 250 mls/hr ONCE ONCE IV 03/13/17 17:00 03/13/17 17:59 Nnamdi haro Past Medical History Reviewed Allergies: Coded Allergies: levofloxacin (Verified Allergy, Severe, 01/22/17) Objective . Vital Signs Date Time Temp Pulse Resp B/P (MAP) Pulse Ox O2 Delivery O2 Flow Rate FiO2 03/13/17 12:24 100 40 03/13/17 12:04 90 110/67 03/13/17 09:10 90 112/70 03/13/17 07:44 98 40 03/13/17 06:41 21 03/13/17 06:00 96 03/13/17 06:00 96 95/59 03/13/17 04:04 100 50 03/13/17 04:00 107 03/13/17 04:00 50 03/13/17 04:00 100.4 107 25 108/71 (83) 99 03/13/17 03:00 30 03/13/17 02:00 121 03/13/17 01:15 124 87/57 03/13/17 01:11 100 50 03/13/17 01:00 50 03/13/17 00:00 124 03/13/17 00:00 101.6 124 24 91/58 (69) 93 03/12/17 22:00 122 03/12/17 20:35 93 Nasal Cannula 4.00 03/12/17 20:00 136 03/12/17 20:00 99.9 118 34 145/84 (104) 100 03/12/17 19:00 100 Nasal Cannula 4.00 03/12/17 18:00 135 03/12/17 16:00 99.1 130 23 107/60 (76) 97 03/12/17 16:00 130 03/12/17 14:00 118 03/13/17 03/13/17 03/14/17 15:00 23:00 07:00 Output Total 5000 ml Balance -5000 ml Hemodialysis 5000 ml . Laboratory Tests Test 03/12/17 04:00 03/12/17 22:15 03/13/17 04:20 White Blood Count 14.0 TH/MM3 13.6 TH/MM3 21.1 TH/MM3 Red Blood Count 3.15 MIL/MM3 2.63 MIL/MM3 2.87 MIL/MM3 Hemoglobin 9.1 GM/DL 7.8 GM/DL 8.4 GM/DL Hematocrit 27.9 % 23.9 % 26.1 % Mean Corpuscular Volume 88.8 FL 90.7 FL 90.9 FL Mean Corpuscular Hemoglobin 28.8 PG 29.5 PG 29.1 PG Mean Corpuscular Hemoglobin Concent 32.5 % 32.6 % 32.0 % Red Cell Distribution Width 15.1 % 15.3 % 15.7 % Platelet Count 286 TH/MM3 226 TH/MM3 316 TH/MM3 Mean Platelet Volume 8.1 FL 8.2 FL 8.1 FL Neutrophils (%) (Auto) 85.5 % Lymphocytes (%) (Auto) 6.7 % Monocytes (%) (Auto) 6.0 % Eosinophils (%) (Auto) 1.3 % Basophils (%) (Auto) 0.5 % Neutrophils # (Auto) 18.1 TH/MM3 Lymphocytes # (Auto) 1.4 TH/MM3 Monocytes # (Auto) 1.3 TH/MM3 Eosinophils # (Auto) 0.3 TH/MM3 Basophils # (Auto) 0.1 TH/MM3 CBC Comment AUTO DIFF Differential Comment AUTO DIFF CONFIRMED Laboratory Tests Test 03/12/17 04:00 03/13/17 04:20 Blood Urea Nitrogen 64 MG/DL 66 MG/DL Creatinine 1.52 MG/DL 1.73 MG/DL Random Glucose 82 MG/DL 100 MG/DL Calcium Level 8.6 MG/DL 7.9 MG/DL Phosphorus Level 2.3 MG/DL 4.0 MG/DL Magnesium Level 1.9 MG/DL 1.7 MG/DL Sodium Level 147 MEQ/L 150 MEQ/L Potassium Level 3.6 MEQ/L 3.4 MEQ/L Chloride Level 116 MEQ/L 118 MEQ/L Carbon Dioxide Level 23.3 MEQ/L 19.0 MEQ/L Anion Gap 8 MEQ/L 13 MEQ/L Estimat Glomerular Filtration Rate 47 ML/MIN 40 ML/MIN Total Protein 5.3 GM/DL Albumin 2.1 GM/DL Alkaline Phosphatase 118 U/L Aspartate Amino Transf (AST/SGOT) 42 U/L Alanine Aminotransferase (ALT/SGPT) 23 U/L Total Bilirubin 0.7 MG/DL Microbiology Date/Time Source Procedure Growth Status 03/13/17 09:20 Sputum Endotracheal Gram Stain Pending Received 03/13/17 09:20 Sputum Endotracheal Sputum Culture Pending Received Imaging Chest X-Ray 03/02/17 0600 Signed Impressions: Service Date/Time: Thursday, March 02, 2017 01:56 - CONCLUSION: 1. Supine apparatus in good position. Bilateral space disease, left greater than right. Left-sided pleural effusion similar to prior exam. Trace Holloway MD Aortography 02/28/17 0000 Signed Impressions: Service Date/Time: Tuesday, February 28, 2017 08:01 - CONCLUSION: 1. Active hemorrhage from distal right lateral sacral and iliolumbar branches successfully coil and Gelfoam embolized, as above. Juan Bhakta MD Abdomen/Pelvis CT 02/28/17 0000 Signed Impressions: Service Date/Time: Tuesday, February 28, 2017 06:51 - CONCLUSION: 1. The right retroperitoneal hematoma has increased in size, as above. There are 2 serpiginous arterially enhancing structures visualized, one in the right psoas muscle and another extending into the hematoma at the right iliac fossa. These could represent sites of continued active bleeding. 2. Stable moderate size left and small right pleural effusion with associated compressive atelectasis. 3. Stable small volume of free fluid in the abdomen and pelvis. There is also anasarca. The findings concerning the retroperitoneal hematoma were discussed with Dr. Aguiar via telephone at approximately 7: 10 AM on 02/28/2017. Angelo Allen MD Chest CT 02/27/17 Signed Impressions: Service Date/Time: Monday, February 27, 2017 18:12 - CONCLUSION: 1. Bilateral pleural effusions with bibasilar atelectasis, left greater than right. Tom Sanchez MD Abdomen X-Ray 02/26/17 Signed Impressions: Service Date/Time: Sunday, February 26, 2017 14:52 - CONCLUSION: 1. Nonobstructive bowel gas pattern. Juan Bhakta MD Upper Extremity Ultrasound 02/10/17 0000 Signed Impressions: Service Date/Time: Friday, February 10, 2017 18:46 - CONCLUSION: Occlusive thrombus in the cephalic and basilic veins. Benjamin Person MD Lung Scan- Nuclear Medicine 02/10/17 0000 Signed Impressions: Service Date/Time: Friday, February 10, 2017 22:17 - CONCLUSION: Low probability pulmonary embolism. Candido Patton MD Head CT 02/10/17 0000 Signed Impressions: Service Date/Time: Friday, February 10, 2017 23:51 - CONCLUSION: Negative noncontrast CT brain. Candido Patton MD Wrist X-Ray 02/06/17 0000 Signed Impressions: Service Date/Time: Monday, February 06, 2017 12:50 - CONCLUSION: Minimally displaced distal radius and ulnar fractures. Armando Dodd MD Lumbar Puncture Fluoroscopy 02/01/17 0000 Signed Impressions: Service Date/Time: January 09:35 - CONCLUSION: Uncomplicated fluoroscopically guided lumbar puncture. CSF was clear. Nabeel Peralta MD Head Magnetic Resonance Angiography 01/27/17 0000 Signed Impressions: Service Date/Time: Friday, January 27, 2017 10:33 - CONCLUSION: No intracranial vascular abnormality is identified. There is no aneurysm visualized. Angelo Allen MD IVC Filter Placement X-Ray 01/25/17 Signed Impressions: Service Date/Time: January 10:29 - CONCLUSION: Uncomplicated inferior vena cava filter placement as above. Yung Fowler MD Thoracic Spine MRI 01/24/17 Signed Impressions: Service Date/Time: Tuesday, January 24, 2017 22:29 - CONCLUSION: 1. Mild degenerative spondylosis most prominently at T11-L1 with slight effacement of the anterior thecal sac and left lateral recess. No significant neural foraminal stenosis. 2. No acute fracture. Juan Bhakta MD Renal Ultrasound 01/23/17 Signed Impressions: Service Date/Time: Monday, January 23, 2017 08:53 - CONCLUSION: 1. Evidence of chronic parenchymal disease of both kidneys. No obstructive uropathy or other acute abnormality demonstrated. 2. Trace ascites, nonspecific. Angelo Garrido MD Lumbar Spine MRI 01/23/17 Signed Impressions: Service Date/Time: Monday, January 23, 2017 17:01 - CONCLUSION: 1. At L4-5 is a broad-based disc protrusion with severe central canal and lateral recess stenosis and flattening of the exiting right L4 nerve root. 2. L5-S1 there is a disc protrusion and moderate stenosis with flattening of the exiting L5 nerve roots bilaterally. 3. At L3-4 there is a moderate to severe central stenosis and lateral recess stenosis with mild foraminal stenosis. 4. No acute fracture or spondylolisthesis. Trace Holloway MD Lower Extremity Ultrasound 01/23/17 Signed Impressions: Service Date/Time: Monday, January 23, 2017 09:53 - CONCLUSION: Bilateral focal lower extremity DVT involving the posterior tibial veins. Angelo Garrido MD Cervical Spine MRI 01/23/17 Signed Impressions: Service Date/Time: Monday, January 23, 2017 17:01 - CONCLUSION: 1. Multilevel cervical spine degenerative changes as above. 2. Mild degrees of spinal stenosis at C3/C4-C6/C7. No cord compression or cord signal abnormality. 3. Age indeterminate left paracentral/foraminal disc protrusion at C6/C7. 4. Multilevel foraminal stenosis, most severe on the left at C6/C7. Please see individual levels above. 5. No fracture or subluxation of the cervical spine. Angelo Garrido MD Brain MRI 01/23/17 0000 Signed Impressions: Service Date/Time: Monday, January 23, 2017 17:01 - CONCLUSION: 1. No acute stroke or other acute intracranial abnormality demonstrated. 2. Moderate severity chronic white matter changes, nonspecific but most likely related to chronic small vessel disease. 3. Few scattered tiny lacunar infarcts of the brainstem. 4. Given the findings are not entirely specific, clinical evaluation for possible multiple sclerosis recommended. Angelo Garrido MD Knee X-Ray 01/22/172053 Signed Impressions: Service Date/Time: Sunday, January 22, 2017 21:17 - CONCLUSION: 1. Evidence of moderate to large joint effusion. 2. No acute fracture or malalignment. 3. Mild 3 compartment osteoarthritic change. Benjamin Person MD Hip and Pelvis X-Ray [id number]/22/[id number] Signed Impressions: Service Date/Time: Sunday, January 22, 2017 21:10 - CONCLUSION: 1. Mild to moderate degenerative change of both hips with no acute fracture or malalignment. There is flattening and remodeling of the right humeral head. Benjamin Person MD Chest X-Ray 02/24/17 0600 Signed Impressions: Service Date/Time: Friday, February 24, 2017 03:58 - CONCLUSION: 1. Unchanged left lower lobe infiltrate with small effusion. Candido Mendoza Jr., MD Chest X-Ray 02/20/17 0000 Signed Impressions: Service Date/Time: Monday, February 20, 2017 11:36 - CONCLUSION: 1. Stable very small right and small left pleural effusions with left lower lobe airspace consolidation. 2. No significant interval change. Juan Bhakta MD Abdomen/Pelvis CT 02/19/17 0000 Signed Impressions: Service Date/Time: Sunday, February 19, 2017 19:09 - CONCLUSION: 1. Areas of calcification seen in the right renal collecting system, right renal pelvis, and proximal right ureter. These appear to layer and be dependent suggesting likely to represent smaller areas of milk of calcium or small stones. There is mild dilatation of the right renal collecting system and right ureter. A definite obstructing stone at this time is not seen. 2. A small amount of air within the urinary bladder. This should be correlated with any recent catheterization. 3. Mild bilateral pleural effusions with accompanying atelectasis or consolidation at the left base. The consolidation was present previously. 4. Prominent degenerative change in the lumbar spine and at the hip joints bilaterally. Angelo Manzo MD Chest X-Ray 02/12/17 0600 Signed Impressions: Service Date/Time: Sunday, February 12, 2017 03:32 - CONCLUSION: 1. Support apparatus in good position. Relatively stable basilar airspace disease and pleural effusions. Trace Holloway MD Upper Extremity Ultrasound 02/10/17 0000 Signed Impressions: Service Date/Time: Friday, February 10, 2017 18:46 - CONCLUSION: Occlusive thrombus in the cephalic and basilic veins. Benjamin Person MD Lung Scan- Nuclear Medicine 02/10/17 0000 Signed Impressions: Service Date/Time: Friday, February 10, 2017 22:17 - CONCLUSION: Low probability pulmonary embolism. Candido Patton MD Head CT 02/10/17 0000 Signed Impressions: Service Date/Time: Friday, February 10, 2017 23:51 - CONCLUSION: Negative noncontrast CT brain. Candido Patton MD Chest CT 02/10/17 0000 Signed Impressions: Service Date/Time: Friday, February 10, 2017 23:56 - CONCLUSION: Left lower lobe collapse with consolidation. Patchy infiltrates the medial right lower lung. Candido Patton MD Abdomen/Pelvis CT 02/10/17 0000 Signed Impressions: Service Date/Time: Friday, February 10, 2017 23:59 - CONCLUSION: 1. Nonobstructing 12 mm calcified stone lower pole right kidney. 2. Atrophic left kidney with significant cortical thinning. 3. Bilateral fat-containing inguinal hernias, large on the right, and moderate on the left. 4. Consolidative collapse of the left lower lobe. Candido Patton MD Abdomen X-Ray 02/10/17 0000 Signed Impressions: Service Date/Time: Friday, February 10, 2017 08:14 - CONCLUSION: No acute abdominal abnormality is identified. Angelo Allen MD Wrist X-Ray 02/06/17 0000 Signed Impressions: Service Date/Time: Monday, February 06, 2017 12:50 - CONCLUSION: Minimally displaced distal radius and ulnar fractures. Armando Dodd MD Lumbar Puncture Fluoroscopy 02/01/17 Signed Impressions: Service Date/Time: January 09:35 - CONCLUSION: Uncomplicated fluoroscopically guided lumbar puncture. CSF was clear. Nabeel Peralta MD Head Magnetic Resonance Angiography 01/27/17 Signed Impressions: Service Date/Time: Friday, January 27, 2017 10:33 - CONCLUSION: No intracranial vascular abnormality is identified. There is no aneurysm visualized. Angelo Allen MD IVC Filter Placement X-Ray 01/25/17 Signed Impressions: Service Date/Time: January 10:29 - CONCLUSION: Uncomplicated inferior vena cava filter placement as above. Yung Fowler MD Thoracic Spine MRI 01/24/17 Signed Impressions: Service Date/Time: Tuesday, January 24, 2017 22:29 - CONCLUSION: 1. Mild degenerative spondylosis most prominently at T11-L1 with slight effacement of the anterior thecal sac and left lateral recess. No significant neural foraminal stenosis. 2. No acute fracture. Juan Bhakta MD Renal Ultrasound 01/23/17 Signed Impressions: Service Date/Time: Monday, January 23, 2017 08:53 - CONCLUSION: 1. Evidence of chronic parenchymal disease of both kidneys. No obstructive uropathy or other acute abnormality demonstrated. 2. Trace ascites, nonspecific. Angelo Garrido MD Lumbar Spine MRI 01/23/17 Signed Impressions: Service Date/Time: Monday, January 23, 2017 17:01 - CONCLUSION: 1. At L4-5 is a broad-based disc protrusion with severe central canal and lateral recess stenosis and flattening of the exiting right L4 nerve root. 2. L5-S1 there is a disc protrusion and moderate stenosis with flattening of the exiting L5 nerve roots bilaterally. 3. At L3-4 there is a moderate to severe central stenosis and lateral recess stenosis with mild foraminal stenosis. 4. No acute fracture or spondylolisthesis. Trace Holloway MD Lower Extremity Ultrasound 01/23/17 Signed Impressions: Service Date/Time: Monday, January 23, 2017 09:53 - CONCLUSION: Bilateral focal lower extremity DVT involving the posterior tibial veins. Angelo Garrido MD Cervical Spine MRI 9/5/17 0000 Signed Impressions: Service Date/Time: Monday, January 23, 2017 17:01 - CONCLUSION: 1. Multilevel cervical spine degenerative changes as above. 2. Mild degrees of spinal stenosis at C3/C4-C6/C7. No cord compression or cord signal abnormality. 3. Age indeterminate left paracentral/foraminal disc protrusion at C6/C7. 4. Multilevel foraminal stenosis, most severe on the left at C6/C7. Please see individual levels above. 5. No fracture or subluxation of the cervical spine. Angelo Garrido MD Brain MRI 01/23/17 Signed Impressions: Service Date/Time: Monday, January 23, 2017 17:01 - CONCLUSION: 1. No acute stroke or other acute intracranial abnormality demonstrated. 2. Moderate severity chronic white matter changes, nonspecific but most likely related to chronic small vessel disease. 3. Few scattered tiny lacunar infarcts of the brainstem. 4. Given the findings are not entirely specific, clinical evaluation for possible multiple sclerosis recommended. Angelo Garrido MD Knee X-Ray 01/22/172053 Signed Impressions: Service Date/Time: Sunday, January 22, 2017 21:17 - CONCLUSION: 1. Evidence of moderate to large joint effusion. 2. No acute fracture or malalignment. 3. Mild 3 compartment osteoarthritic change. Benjamin Person MD Hip and Pelvis X-Ray [id number]/22/172053 Signed Impressions: Service Date/Time: Sunday, January 22, 2017 21:10 - CONCLUSION: 1. Mild to moderate degenerative change of both hips with no acute fracture or malalignment. There is flattening and remodeling of the right humeral head. Benjamin Person MD Physical Exam GENERAL: Awake, following commands. On the vent SKIN: Cool and dry. No generalized rash. Still very edematous EYES: [place] conjunctiva. No petechia or hemorrhage. EARS, NOSE AND THROAT: Nose without bleeding or purulent nasal discharge. NECK: Trachea midline. Supple and no meningeal signs CARDIOVASCULAR: Regular rate and rhythm. Soft heart sounds. No murmurs, rubs or gallops heard RESPIRATORY: Coarse BS bilaterally, decreased at bases. ABDOMEN: Soft, mildly distended, some grimacing during palpation. EXTREMITIES: No clubbing, cyanosis. Edema feet better; edema hands better : very swollen scrotum, has a lot of sediment in his cath tubing NEUROLOGICAL: following commands PSYCHIATRIC: not restless LINE: Lines with no evidence of infection Assessment & Plan Remarks IMPRESSION New fevers, better - now with Kled and Sten mal in sputum, tracheobronchitis, he is tolerating weaning Shock, due to large R retroperitoneal bleed, S/P multiple transfusions and S/ P coiling of bleeders, resolved Elevated amylase and lipase, better Anemia, due to bleed, retroperitoneal MSSA sepsis, due to suppurative thrombophlebitis LUE, S/P I and D and excision of portion of cephalic vein - needs Rx until Mar 25 Respiratory failure, has had several intubations - reintubated again 02/28, extubated 03/11 - reintubated again Recent Rx 7 days high dose solumedrol for transverse myelitis Wu LE DVT has IVC filter placed 01/25 - ?hypercoagulable state Chronic kidney disease, worsening creatinine - shock and compression of ureter by hematoma Known DM, HTN Gouty tophi both hands and feet Diarrhea, C diff negative UTI, GNR - repeat UA better, but a lot of sediment in the urine Thrombocytopenia, no evidence of DIC, ?meds, ?infection, ?due to bleed - improving RECOMMENDATION Dose of Vanco today - for Staph coverage Continue Invanz for the Kleb ESBL+ - give till 03/15 Continue Bactrim to cover Sten mal Follow C/S Monitor temps' Monitor progress D/W Irene Vogel MD Mar 13, 2017 13:50
--- NOTE | 2017-03-13 14:50 | PD.CONS ---
Consult Service Palliative Care Consult Requested By Dr. Puente Primary Care Physician Dr. Arias . Reason for Consultation a. To assist with evaluation and management of symptoms including: shortness of breath, pain, debility b. To assist medical decision maker(s) with: better understanding of current medical conditions; weighing benefits/burdens of medical treatment options; making medical treatment decisions. (Aftab Cartwright) HPI History of Present Illness Mr Kerr is a 62 years old male with a past medical history of hypertension, asthma, diabetes, hyperlipidemia, chronic kidney disease and gout. Patient presented to the ED on 01/22/17 complaining of bilateral knee and right arm pain after a mechanical fall 4 or 5 days prior to coming to the ER. Patient has been experiencing progressive weakness of bilateral lower extremities as well as bilateral upper extremities prior to ER visit. Right Wrist x-ray revealed nondisplaced oblique fracture of the distal ulna, chronic appearing deformity of the distal ulna and extensive degenerative change and osteopenia. Left Knee x-ray revealed evidence of moderate to large joint effusion with no fracture or malalignment. Mild 3 compartment osteoarthritic change. Right Knee x-ray revealed no acute fracture or malalignment. Soft tissue swelling and osteoarthritic change and joint effusion. Head CT negative. Chest x-ray revealed no acute disease. EKG in the ER revealed sinus tachycardia. Laboratory work revealed WBC 19.3, hemoglobin 12.0, hematocrit 40.0, platelet count 335, random glucose 258, AST 19, ALT 24, CK-MB less than 0.5, troponin less than 0.02. Orthopedic Dr. Delvalle consulted, recommended nonoperative treatment and application of a splint to wrist. Nephrology Dr. Liao consulted on 01/23/17 for management of acute and chronic kidney disease. Clinical course complicated with increased weakness leading to numerous diagnostic work ups for possible transverse myelitis, DVTs, retroperitoneal hematoma, aspiration pneumonia, intubation x 4 times, septic and hemorrhagic shock requiring support with pressors and multiple pRBC, FFP transfusions as well as platelets and cryo, renal failure requiring hemodialysis and sacral wound. Ultrasound to bilateral lower extremities showed DVT, Heparin drip was started and was stopped to facilitate further workup for increased weakness. MRI brain revealed scattered tiny lacunae infarcts of the brainstem. MRI lumbar spine on 01/23/17 revealed multilevel spinal stenosis. MRI cervical spine revealed diffuse spondylosis at several levels but no evidence of spinal cord compression. Neurology Dr. Crenshaw consulted 01/24/17 for generalized weakness who recommended workup for possible transverse myelitis and ? MS. Neurosurgery Dr. Blackwell consulted- reviewed imaging studies which showed no cord compression and recommended nonoperative management. Patient had a retrievable IVC filter placed by interventional radiology on 01/25/17. On he underwent lumbar puncture by Interventional radiology. Patient received high dose solumedrol from 01/27-02/02 and was showing signs of medical improvement and was participating in physical therapy until he vomited on and 02/10/17. Patient became febrile with a max Temp of 102.8 on 02/09/17. Critical care consulted on 02/10/17 after patient became hypotensive and hypoxic with O2 sats in the mid 60s on a 100% nonrebreather. Patient was intubated and required pressor support. Infectious disease Dr. Pat Edwards consulted on for evaluation and management of septic shock. Vascular surgery consulted for evaluation and management of exudative/port of thrombophlebitis left upper extremity with MRSA- patient underwent I&D of left upper extremity. Echocardiogram on 02/11/17 showed an EF of 20-25%. Cardiology Dr. Gan consulted 02/14/17 for management of cardiomyopathy. GI Dr. Chopra consulted on 02/17/17 for evaluation of anemia and Hemoccult-positive stools. Critical care management Dr. Rivas re-consulted on 02/20/17. Patient hemodynamically unstable on 02/28/17, requiring massive transfusion. Patient underwent embolization of inferior and superior sacral branches of the right internal iliac artery by interventional radiology. Urology Dr. Sweet consulted for nephrolithiasis, recommended nephrostomy tube if obstruction . General surgery Dr. Lino almonte consulted 02/28/17 for possible abdominal compartment syndrome. Palliative care consulted. 01/23/17-renal ultrasound- revealed chronic parenchymal disease of both kidneys no obstructive uropathy or acute abnormality demonstrated. 01/23/17- lower extremity ultrasound- revealed DVT involving the posterior tibial veins 01/24/17-thoracic spine MRI- revealed mild degenerative spondylosis most prominently at T 11- L1 with slight effacement of the anterior thecal sac and left lateral recess. 01/25/17- placement of inferior vena cava filter by interventional radiology 01/26/17-lumbar puncture with fluoroscopy-by interventional radiology 01/27/17-MRA head-revealed normal intracranial vascular abnormality. No aneurysm. 02/01/17- lumbar puncture fluoroscopy by interventional radiology 02/10/17- Intubation 02/10/17-left IJ central venous line placed 02/10/17-left femoral arterial line placed 02/10/17-lung V/Q scan- revealed low probability pulmonary embolism 02/10/17 upper extremity ultrasound- revealed occlusive thrombus in the cephalic and basilic veins 02/11/17-echocardiogram revealed ejection fraction of 20-25% 02/22/17-EGD/colonoscopy-showed gastritis, esophagitis, hiatal hernia, diverticulosis and multiple polyps which were biopsied. 02/27/17-abdomen/pelvis CT revealed right retroperitoneal hematoma and bilateral pleural effusions with bibasilar atelectasis, and nonobstructing stones in the right kidney. Received 3 units PRBCs 02/28/17-abdomen/pelvis CT revealed enlarged right retroperitoneal hematoma. Received 10 pRBC, 14 FFP, 2 platelets, 1 cryo-, 6 g calcium chloride, 2 is magnesium sulfate and 4 mg Bumex 02/28/17- embolization of inferior and superior sacral branches of the right interval iliac artery Patient seen in ICU, intubated, sedated on mechanical ventilation.Patient is currently on fentanyl drip at 50 mcg/hour, Midazolam at 1 mg/hr, and Norepinephrine gtt infusing at 8mcg per minute with SBP in the 90s. Tmax today 101.6 degrees F, O2 saturation high 90s on FIO2 of 50%. Met with patient`s sister Deb, updated on medical status. Patient`s sister mentioned that patient has had significant decline in his health for the past 4 months to a point of him resigning from his job due to failing health and physical deconditioning. Patient`s sister mentioned that patient has been having falls at home prior to coming to the hospital. As a resultant falls in 2017, in June patient had left shoulder fracture, in August patient had 2nd and 3rd metacarpal fractures, and February 04, patient had left distal ulna fracture. Patient has been progressively getting weaker with his bilateral lower extremities as well as upper extremities. Discussed code status, advance directives. Per sister, patient does not have advance directives. Discussed possibility of tracheostomy placement and peg placement given that this is the patient`s fourth time to be reintubated requiring mechanical ventilation. Case discussed with bedside RN Dr. Cindi Quintana. Telephone conversation with patient`s son Davie. Telephone call placed to patient`s other son Arnel with no response- message left with contact information. Function/Cognitive Trajectory Patient lived alone but was recently planning on moving in with his son due to failing health. Patient`s sister mentioned that patient has had significant decline in his health for the past 4 months to a point of him resigning from his job due to failing health and physical deconditioning. Patient`s sister mentioned that patient has been having falls at home prior to coming to the hospital. 3 days prior to coming patient had difficulty with ambulation hence requiring assistance with transferring from bed to chair with rollers and maximum assistance with transferring from chair to car. . (Aftab Cartwright) Review of Systems ROS Limitations: Clinical Condition, Intubated, Other (Sedated.) Constitutional: COMPLAINS OF: Fatigue, Change in appetite, Pain, Generalized weakness Eyes: DENIES: Eye inflammation Ears, nose, mouth, throat: DENIES: Nasal discharge, Running Nose Respiratory: COMPLAINS OF: Shortness of breath Cardiovascular: COMPLAINS OF: Lower Extremity Edema Gastrointestinal: COMPLAINS OF: Black stools, Nausea, Vomiting Genitourinary: COMPLAINS OF: Testicular Swelling Musculoskeletal: COMPLAINS OF: Joint pain, Decreased range of motion Hematologic/Lymphatics: COMPLAINS OF: Bruising Neurologic: COMPLAINS OF: Localized weakness Other ROS: ROS obtained from medical history and clinical observation. . (Aftab Cartwright) Past Family Social History Coded Allergies: levofloxacin (Verified Allergy, Severe, 01/22/17) Past Medical History Gouty Arthritis Chronic kidney disease Kidney stones Hypertension Diabetes Hyperlipidemia . Past Surgical History Rhinoplasty Kidney stents, 2007 . Reported Medications Hydrocodone-Acetaminophen 7.5-325 mg Tab 1 Tab PO Q4H PRN Norvasc (Amlodipine Besylate) 5 Mg Tab 5 Mg PO DAILY Wheelchair Elevated Leg (Device) 1 Mis Mis Ea DIRECTED Commode 3-in-1 (Device) 1 Mis Mis Ea .ROUTE DIRECTED Atorvastatin (Atorvastatin Calcium) 10 Mg Tab 10 Mg PO HS Glipizide 5 Mg Tab 5 Mg PO BIDAC Atenolol 25 Mg Tab 25 Mg PO DAILY Current Medications Medications (Trade) Dose Ordered Sig/Rosalia Route Start Time Stop Time Status Last Admin (NS Flush) 2 ml UNSCH PRN IV FLUSH 01/23/17 00:30 02/01/17 05:07 (NS Flush) 2 ml BID IV FLUSH 01/23/17 09:00 03/13/17 10:26 (Zofran Inj) 4 mg Q6H PRN IVP 01/23/17 00:30 02/26/17 17:23 (Narcan Inj) 0.4 mg UNSCH PRN IV 01/23/17 00:30 (Edna-Colace) 1 tab BID PO 01/23/17 09:00 Future Hold 02/24/17 20:31 (Dulcolax Supp) 10 mg DAILY PRN RECTAL 01/23/17 00:30 (Lipitor) 10 mg HS PO 01/24/17 21:00 Future hold 03/12/17 22:07 (Glucagon Inj) 1 mg UNSCH PRN OTHER 02/11/17 05:45 02/18/17 18:53 (Flomax) 0.4 mg Q12HR PO 02/17/17 15:00 Future Hold 02/26/17 08:49 (Lovenox Inj) 100 mg Q12H SQ 02/18/17 12:00 Future Hold 02/26/17 16:20 (Lactinex) 1 tab TID PO 02/19/17 13:00 03/13/17 10:27 (Apresoline Inj) 10 mg Q30M PRN IV PUSH 02/20/17 11:45 03/11/17 12:37 (D50w (Vial) Inj) 25 ml UNSCH PRN IV PUSH 02/20/17 12:45 Sodium Chloride 1,000 ml @ 20 mls/hr Q24H IV 02/22/17 13:00 03/12/17 14:50 Oxacillin Sodium 2 gm/Sodium Chloride 100 ml @ 200 mls/hr Q4H IV 02/23/17 12:00 Future Hold 02/27/17 04:25 (Questran Light Pkt) 4 gm Q12HR PO 02/25/17 21:00 Future Hold 02/27/17 10:32 (Aldactone) 25 mg DAILY PO 02/27/17 09:00 Future Hold (Reglan Inj) 5 mg Q8HR IV PUSH 02/26/17 22:00 03/13/17 05:40 (Peridex 0.12% Liq) 15 ml BID@08,20 MT 02/28/17 08:00 03/13/17 10:26 (Albuterol Neb) 2.5 mg Q2HR NEB PRN NEB 02/28/17 07:45 (NovoLIN R SUPPLEMENTAL SCALE) 1 Q4HR SQ 02/28/17 08:00 03/11/17 04:54 Sodium Chloride 1,000 ml @ 0 mls/hr Q0M PRN OTHER 03/01/17 11:19 03/02/17 13:00 Sodium Chloride 1,000 ml @ 200 mls/hr Q5H PRN IV 03/01/17 11:19 Sodium Chloride 1,000 ml @ 0 mls/hr Q0M PRN OTHER 03/01/17 11:19 (Mannitol Inj) 12.5 gm UNSCH PRN IV 03/01/17 11:30 03/08/17 17:27 Albumin Human 100 ml @ 60 mls/hr UNSCH PRN IV 03/01/17 11:30 03/08/17 17:28 (NS Flush) 5 ml UNSCH PRN IV FLUSH 03/01/17 11:30 (Heparin Inj) UNSCH PRN .XX 03/01/17 11:30 03/02/17 13:00 (Gentamicin (Dialysis) Inj) 20 mg UNSCH PRN OTHER 03/01/17 11:30 03/13/17 11:52 (Tylenol) 650 mg UNSCH PRN PO 03/01/17 11:30 (Nitrostat Sl) 0.4 mg UNSCH PRN SL 03/01/17 11:30 (Gelfoam 12 Mm/7 Mm Top) 1 foam UNSCH PRN TOP 03/01/17 11:30 (NS Flush) UNSCH PRN IV FLUSH 03/01/17 13:00 (Heparin Inj) UNSCH PRN IV FLUSH 03/01/17 13:00 Ertapenem 1000 mg/ Sodium Chloride 100 ml @ 200 mls/hr Q24H IV 03/01/17 20:00 03/15/17 23:00 03/12/17 22:06 (NS Flush) DAILY IV FLUSH 03/04/17 09:00 03/12/17 11:02 (NS Flush) UNSCH PRN IV FLUSH 03/03/17 18:45 (Mag-Ox) 800 mg UNSCH PRN PO 03/05/17 07:45 03/07/17 14:00 Magnesium Sulfate 4 gm/Sodium Chloride 100 ml @ 50 mls/hr UNSCH PRN IV 03/05/17 07:45 Magnesium Sulfate 2 gm/Sodium Chloride 100 ml @ 50 mls/hr UNSCH PRN IV 03/05/17 07:45 03/08/17 14:29 Potassium Chloride 100 ml @ 50 mls/hr Q2H PRN IV 03/05/17 07:45 03/07/17 08:01 Potassium Chloride 100 ml @ 50 mls/hr Q2H PRN IV 03/05/17 07:45 Potassium Chloride 100 ml @ 50 mls/hr Q2H PRN IV 03/05/17 07:45 Potassium Chloride 100 ml @ 25 mls/hr UNSCH PRN IV 03/05/17 07:45 (K-Phos) 2,000 mg Q4H PRN PO 03/05/17 07:45 (K-Phos) 2,000 mg UNSCH PRN PO/TUBE 03/05/17 07:45 Potassium Phosphate 30 mmol/ Sodium Chloride 260 ml @ 42 mls/hr UNSCH PRN IV 03/05/17 07:45 03/12/17 14:56 Sodium Phosphate 30 mmol/Sodium Chloride 250 ml @ 42 mls/hr UNSCH PRN IV 03/05/17 07:45 (Roxicodone Intensol Liq) 10 mg Q4H PO 03/05/17 14:00 03/13/17 05:41 (Levemir Inj) 5 units BID SQ 03/07/17 21:00 03/11/17 08:25 (Prevacid Odt) 30 mg BID NG 03/07/17 21:00 03/13/17 10:27 (Tylenol 650 Mg/ 20 ml Liq) 650 mg Q6H PRN PO 03/09/17 10:15 03/13/17 01:57 (Lasix Inj) 40 mg BID@09,18 IV PUSH 03/10/17 18:00 03/13/17 10:27 (Duoneb Neb) 1 ampule Q6HR NEB NEB 03/10/17 16:00 03/13/17 10:10 (Bactrim 400-80 Mg) 1 tab Q12HR PO 03/11/17 12:00 03/18/17 11:59 03/13/17 10:27 (Trandate Inj) 20 mg Q4H PRN IV 03/12/17 04:30 03/13/17 02:29 (Tenormin) 25 mg Q12HR PO 03/12/17 10:00 Phenylephrine HCl 160 mg/Dextrose 500 ml @ 7.5 mls/hr TITRATE PRN IV 03/12/17 10:45 (Brethine Inj) 1 mg UNSCH PRN SQ 03/12/17 10:45 Midazolam HCl 100 ml @ 2 mls/hr TITRATE PRN IV 03/13/17 01:00 03/13/17 01:30 Fentanyl Citrate 250 ml @ 5 mls/hr TITRATE PRN IV 03/13/17 01:00 03/13/17 01:30 Norepinephrine Bitartrate 16 mg/ Sodium Chloride 250 ml @ 1.87 mls/hr TITRATE PRN IV 03/13/17 10:45 03/13/17 12:04 Potassium Chloride 100 ml @ 100 mls/hr BOLUS ONCE IV 03/13/17 12:30 03/13/17 13:29 Family History Mother- diabetes, asthma, hypertension, heart disease Father - is 88 years old and still living Sister- living and has hypertension and thyroidism . Substance Use Tobacco: Never used tobacco Alcohol: History of alcohol use quit +10 years ago Prescription med abuse: Denies Illicits: Denies . Psychosocial History Patient was born and raised in [place], [place]. Patient was once for 20 years, now and has 2 adult sons. 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 He recently resigned due to failing health. . Spiritual/Cultural Factors No Zoroastrian affiliation- patient's sister Deb is to a Prehemmer . (Aftab Cartwright) Living Will: Never completed Health Care Surrogate: Never completed Durable Power of Change Management Lead: Never completed Ethical and Legal Issues None identified at this time. . (Aftab Cartwright) Documented care wishes: No known documented care wishes have been completed. . Today's verbally stated goals: Patient is currently sedated and intubated on mechanical ventilator and is unable to participate in establishing medical treatment goals. It is unclear if the patient will regain his capacity at this point in time. Family/friends goals: Goals remain aggressive pending tentative family meeting scheduled for tomorrow 03/14/2017 at 11 AM. . Ethical and Legal Issues Patient is . Per [place] statutes, in the absence of written advanced directives healthcare proxy decision-making would fall to the patient's 2 adult children. . (Mahi Luis) Physical Exam Vital Signs Date Time Temp Pulse Resp B/P (MAP) Pulse Ox O2 Delivery O2 Flow Rate FiO2 03/13/17 12:24 100 40 03/13/17 12:04 90 110/67 03/13/17 09:10 90 112/70 03/13/17 07:44 98 40 03/13/17 06:41 21 03/13/17 06:00 96 03/13/17 06:00 96 95/59 03/13/17 04:04 100 50 03/13/17 04:00 107 03/13/17 04:00 50 03/13/17 04:00 100.4 107 25 108/71 (83) 99 03/13/17 03:00 30 03/13/17 02:00 121 03/13/17 01:15 124 87/57 03/13/17 01:11 100 50 03/13/17 01:00 50 03/13/17 00:00 124 03/13/17 00:00 101.6 124 24 91/58 (69) 93 03/12/17 22:00 122 03/12/17 20:35 93 Nasal Cannula 4.00 03/12/17 20:00 136 03/12/17 20:00 99.9 118 34 145/84 (104) 100 03/12/17 19:00 100 Nasal Cannula 4.00 03/12/17 18:00 135 03/12/17 16:00 99.1 130 23 107/60 (76) 97 03/12/17 16:00 130 03/12/17 14:00 118 03/13/17 03/14/17 19:00 07:00 Output Total 5000 ml Balance -5000 ml Hemodialysis 5000 ml Exam CONSTITUTIONAL/GENERAL: This is an adequately nourished patient, intubated, sedated on mechanical ventilation TUBES/LINES/DRAINS:RIJ TLC, LIJ Vas Cath, OGT, ETT, FC SKIN: No jaundice. Weeping edema. Ecchymoses on upper extremities. No wounds seen anteriorly. Low-grade temp. Not diaphoretic. HEAD: Atraumatic. Normocephalic. EYES: Pupils equal and round, slight reaction.No scleral icterus. No injection or drainage. Fundi not examined. ENT: Intubated and sedated. Nose without bleeding or purulent drainage. Moist oral mucosa. Clear oral secretions NECK: Trachea midline. Supple, nontender. CARDIOVASCULAR: Regular rate and rhythm without murmurs, gallops, or rubs. No JVD. RESPIRATORY/CHEST: Symmetric, unlabored respirations. Clear to auscultation. Breath sounds equal bilaterally. No wheezes, rales, or rhonchi. GASTROINTESTINAL: Abdomen soft, non-tender, nondistended. No hepato-splenomegaly , or palpable masses. No guarding. Bowel sounds present. GENITOURINARY: Without palpable bladder distension. Sloan catheter in place with scant amount of urine. Scrotal edema. MUSCULOSKELETAL: Gouty tophi to fingers, knees, elbows and both ankles. +1 bilateral upper and lower extremity edema. NEUROLOGICAL: Intubated, sedated on mechanical ventilation. PSYCHIATRIC: No obvious anxiety/depression. no apparent hallucinations or other psychotic thought process. . (Aftab Cartwright) Diagnostic Tests Laboratory Laboratory Tests Test 03/11/17 04:40 03/12/17 04:00 03/12/17 22:15 03/13/17 02:39 White Blood Count 12.0 TH/MM3 (4.0-11.0) 14.0 TH/MM3 (4.0-11.0) 13.6 TH/MM3 (4.0-11.0) Red Blood Count 2.59 MIL/MM3 (4.50-5.90) 3.15 MIL/MM3 (4.50-5.90) 2.63 MIL/MM3 (4.50-5.90) Hemoglobin 7.6 GM/DL (13.0-17.0) 9.1 GM/DL (13.0-17.0) 7.8 GM/DL (13.0-17.0) Hematocrit 23.3 % (39.0-51.0) 27.9 % (39.0-51.0) 23.9 % (39.0-51.0) Mean Corpuscular Volume 90.0 FL (80.0-100.0) 88.8 FL (80.0-100.0) 90.7 FL (80.0-100.0) Mean Corpuscular Hemoglobin 29.2 PG (27.0-34.0) 28.8 PG (27.0-34.0) 29.5 PG (27.0-34.0) Mean Corpuscular Hemoglobin Concent 32.4 % (32.0-36.0) 32.5 % (32.0-36.0) 32.6 % (32.0-36.0) Red Cell Distribution Width 15.4 % (11.6-17.2) 15.1 % (11.6-17.2) 15.3 % (11.6-17.2) Platelet Count 174 TH/MM3 (150-450) 286 TH/MM3 (150-450) 226 TH/MM3 (150-450) Mean Platelet Volume 8.3 FL (7.0-11.0) 8.1 FL (7.0-11.0) 8.2 FL (7.0-11.0) Blood Urea Nitrogen 63 MG/DL (7-18) 64 MG/DL (7-18) Creatinine 1.56 MG/DL (0.60-1.30) 1.52 MG/DL (0.60-1.30) Random Glucose 177 MG/DL (74-106) 82 MG/DL (74-106) Calcium Level 7.9 MG/DL (8.5-10.1) 8.6 MG/DL (8.5-10.1) Phosphorus Level 2.5 MG/DL (2.5-4.9) 2.3 MG/DL (2.5-4.9) Magnesium Level 2.0 MG/DL (1.5-2.5) 1.9 MG/DL (1.5-2.5) Sodium Level 147 MEQ/L (136-145) 147 MEQ/L (136-145) Potassium Level 3.6 MEQ/L (3.5-5.1) 3.6 MEQ/L (3.5-5.1) Chloride Level 115 MEQ/L (98-107) 116 MEQ/L (98-107) Carbon Dioxide Level 22.4 MEQ/L (21.0-32.0) 23.3 MEQ/L (21.0-32.0) Anion Gap 10 MEQ/L (5-15) 8 MEQ/L (5-15) Estimat Glomerular Filtration Rate 45 ML/MIN (>89) 47 ML/MIN (>89) Blood Gas Puncture Site RT BRACHIAL Blood Gas Patient Temperature 98.6 Blood Gas HCO3 18 mmol/L (22-26) Blood Gas Base Excess -7.4 mmol/L (-2-2) Blood Gas Oxygen Saturation 90 % (90-100) Arterial Blood pH 7.28 (7.380-7.420) Arterial Blood Partial Pressure CO2 40 mmHg (38-42) Arterial Blood Partial Pressure O2 73 mmHg (61-120) Arterial Blood Oxygen Content 10.8 Vol % (12.0-20.0) Arterial Blood Carboxyhemoglobin 2.2 % (0-4) Arterial Blood Methemoglobin 1.7 % (0-2) Blood Gas Hemoglobin 8.5 G/DL (12.0-16.0) Oxygen Delivery Device VENTILATOR Blood Gas Ventilator Setting PRV/AC Blood Gas Inspired Oxygen 50 % Test 03/13/17 04:20 White Blood Count 21.1 TH/MM3 (4.0-11.0) Red Blood Count 2.87 MIL/MM3 (4.50-5.90) Hemoglobin 8.4 GM/DL (13.0-17.0) Hematocrit 26.1 % (39.0-51.0) Mean Corpuscular Volume 90.9 FL (80.0-100.0) Mean Corpuscular Hemoglobin 29.1 PG (27.0-34.0) Mean Corpuscular Hemoglobin Concent 32.0 % (32.0-36.0) Red Cell Distribution Width 15.7 % (11.6-17.2) Platelet Count 316 TH/MM3 (150-450) Mean Platelet Volume 8.1 FL (7.0-11.0) Neutrophils (%) (Auto) 85.5 % (16.0-70.0) Lymphocytes (%) (Auto) 6.7 % (9.0-44.0) Monocytes (%) (Auto) 6.0 % (0.0-8.0) Eosinophils (%) (Auto) 1.3 % (0.0-4.0) Basophils (%) (Auto) 0.5 % (0.0-2.0) Neutrophils # (Auto) 18.1 TH/MM3 (1.8-7.7) Lymphocytes # (Auto) 1.4 TH/MM3 (1.0-4.8) Monocytes # (Auto) 1.3 TH/MM3 (0-0.9) Eosinophils # (Auto) 0.3 TH/MM3 (0-0.4) Basophils # (Auto) 0.1 TH/MM3 (0-0.2) CBC Comment AUTO DIFF Differential Comment AUTO DIFF CONFIRMED Blood Urea Nitrogen 66 MG/DL (7-18) Creatinine 1.73 MG/DL (0.60-1.30) Random Glucose 100 MG/DL (74-106) Total Protein 5.3 GM/DL (6.4-8.2) Albumin 2.1 GM/DL (3.4-5.0) Calcium Level 7.9 MG/DL (8.5-10.1) Phosphorus Level 4.0 MG/DL (2.5-4.9) Magnesium Level 1.7 MG/DL (1.5-2.5) Alkaline Phosphatase 118 U/L (45-117) Aspartate Amino Transf (AST/SGOT) 42 U/L (15-37) Alanine Aminotransferase (ALT/SGPT) 23 U/L (12-78) Total Bilirubin 0.7 MG/DL (0.2-1.0) Sodium Level 150 MEQ/L (136-145) Potassium Level 3.4 MEQ/L (3.5-5.1) Chloride Level 118 MEQ/L (98-107) Carbon Dioxide Level 19.0 MEQ/L (21.0-32.0) Anion Gap 13 MEQ/L (5-15) Estimat Glomerular Filtration Rate 40 ML/MIN (>89) Random Vancomycin Level 23.7 COMMENT (Aftab Cartwright) Result Diagram: 03/13/1741903/13/170 Microbiology Microbiology Date/Time Source Procedure Growth Status 03/13/17 09:20 Sputum Endotracheal Gram Stain Pending Received 03/13/17 09:20 Sputum Endotracheal Sputum Culture Pending Received Imaging Last Impressions Chest X-Ray 03/13/17 0000 Signed Impressions: Service Date/Time: Monday, March 13, 2017 01:52 - CONCLUSION: 1. Bibasilar densities. 2. Endotracheal tube tip not well-seen but appears to be in good position. Armando Dodd MD Aortography 02/28/17 0000 Signed Impressions: Service Date/Time: Tuesday, February 28, 2017 08:01 - CONCLUSION: 1. Active hemorrhage from distal right lateral sacral and iliolumbar branches successfully coil and Gelfoam embolized, as above. Juan Bhakta MD Abdomen/Pelvis CT 02/28/17 0000 Signed Impressions: Service Date/Time: Tuesday, February 28, 2017 06:51 - CONCLUSION: 1. The right retroperitoneal hematoma has increased in size, as above. There are 2 serpiginous arterially enhancing structures visualized, one in the right psoas muscle and another extending into the hematoma at the right iliac fossa. These could represent sites of continued active bleeding. 2. Stable moderate size left and small right pleural effusion with associated compressive atelectasis. 3. Stable small volume of free fluid in the abdomen and pelvis. There is also anasarca. The findings concerning the retroperitoneal hematoma were discussed with Dr. Aguiar via telephone at approximately 7: 10 AM on 02/28/2017. Angelo Allen MD Chest CT 02/27/17 0000 Signed Impressions: Service Date/Time: Monday, February 27, 2017 18:12 - CONCLUSION: 1. Bilateral pleural effusions with bibasilar atelectasis, left greater than right. Tom Sanchez MD Abdomen X-Ray 02/26/17 0000 Signed Impressions: Service Date/Time: Sunday, February 26, 2017 14:52 - CONCLUSION: 1. Nonobstructive bowel gas pattern. Juan Bhakta MD Upper Extremity Ultrasound 02/10/17 0000 Signed Impressions: Service Date/Time: Friday, February 10, 2017 18:46 - CONCLUSION: Occlusive thrombus in the cephalic and basilic veins. Benjamin Person MD Lung Scan- Nuclear Medicine 02/10/17 0000 Signed Impressions: Service Date/Time: Friday, February 10, 2017 22:17 - CONCLUSION: Low probability pulmonary embolism. Candido Patton MD Head CT 02/10/17 Signed Impressions: Service Date/Time: Friday, February 10, 2017 23:51 - CONCLUSION: Negative noncontrast CT brain. Candido Patton MD Wrist X-Ray 02/06/17 0000 Signed Impressions: Service Date/Time: Monday, February 06, 2017 12:50 - CONCLUSION: Minimally displaced distal radius and ulnar fractures. Armando Dodd MD Lumbar Puncture Fluoroscopy 02/01/17 0000 Signed Impressions: Service Date/Time: January 09:35 - CONCLUSION: Uncomplicated fluoroscopically guided lumbar puncture. CSF was clear. Nabeel Peralta MD Head Magnetic Resonance Angiography 01/27/17 Signed Impressions: Service Date/Time: Friday, January 27, 2017 10:33 - CONCLUSION: No intracranial vascular abnormality is identified. There is no aneurysm visualized. Angelo Allen MD IVC Filter Placement X-Ray 01/25/17 Signed Impressions: Service Date/Time: January 10:29 - CONCLUSION: Uncomplicated inferior vena cava filter placement as above. Yung Fowler MD Thoracic Spine MRI 01/24/17 Signed Impressions: Service Date/Time: Tuesday, January 24, 2017 22:29 - CONCLUSION: 1. Mild degenerative spondylosis most prominently at T11-L1 with slight effacement of the anterior thecal sac and left lateral recess. No significant neural foraminal stenosis. 2. No acute fracture. Juan Bhakta MD Renal Ultrasound 01/23/17 Signed Impressions: Service Date/Time: Monday, January 23, 2017 08:53 - CONCLUSION: 1. Evidence of chronic parenchymal disease of both kidneys. No obstructive uropathy or other acute abnormality demonstrated. 2. Trace ascites, nonspecific. Angelo Garrido MD Lumbar Spine MRI 01/23/17 0000 Signed Impressions: Service Date/Time: Monday, January 23, 2017 17:01 - CONCLUSION: 1. At L4-5 is a broad-based disc protrusion with severe central canal and lateral recess stenosis and flattening of the exiting right L4 nerve root. 2. L5-S1 there is a disc protrusion and moderate stenosis with flattening of the exiting L5 nerve roots bilaterally. 3. At L3-4 there is a moderate to severe central stenosis and lateral recess stenosis with mild foraminal stenosis. 4. No acute fracture or spondylolisthesis. Trace Holloway MD Lower Extremity Ultrasound 01/23/17 Signed Impressions: Service Date/Time: Monday, January 23, 2017 09:53 - CONCLUSION: Bilateral focal lower extremity DVT involving the posterior tibial veins. Angelo Garrido MD Cervical Spine MRI 01/23/17 Signed Impressions: Service Date/Time: Monday, January 23, 2017 17:01 - CONCLUSION: 1. Multilevel cervical spine degenerative changes as above. 2. Mild degrees of spinal stenosis at C3/C4-C6/C7. No cord compression or cord signal abnormality. 3. Age indeterminate left paracentral/foraminal disc protrusion at C6/C7. 4. Multilevel foraminal stenosis, most severe on the left at C6/C7. Please see individual levels above. 5. No fracture or subluxation of the cervical spine. Angelo Garrido MD Brain MRI 01/23/17 Signed Impressions: Service Date/Time: Monday, January 23, 2017 17:01 - CONCLUSION: 1. No acute stroke or other acute intracranial abnormality demonstrated. 2. Moderate severity chronic white matter changes, nonspecific but most likely related to chronic small vessel disease. 3. Few scattered tiny lacunar infarcts of the brainstem. 4. Given the findings are not entirely specific, clinical evaluation for possible multiple sclerosis recommended. Angelo Garrido MD Knee X-Ray 01/22/172053 Signed Impressions: Service Date/Time: Sunday, January 22, 2017 21:17 - CONCLUSION: 1. Evidence of moderate to large joint effusion. 2. No acute fracture or malalignment. 3. Mild 3 compartment osteoarthritic change. Benjamin Person MD Hip and Pelvis X-Ray 01/22/172053 Signed Impressions: Service Date/Time: Sunday, January 22, 2017 21:10 - CONCLUSION: 1. Mild to moderate degenerative change of both hips with no acute fracture or malalignment. There is flattening and remodeling of the right humeral head. Benjamin Person MD Procedures 01/25/2017- Retrievable IVC Filter placement 01/26/17-lumbar puncture with fluoroscopy-by interventional radiology 02/01/17- lumbar puncture fluoroscopy by interventional radiology 02/10/17- Endotracheal Intubation 02/10/17-left IJ central venous line placed 02/10/17-left femoral arterial line placed 02/11/17-Diagnostic and therapeutic bronchoscopy with bronchoalveolar lavage 02/11/17-Left upper extremity incision and debridement with excision of septic cephalic vein 02/13/17- Extubated 02/20/17- endotracheal intubation 02/20/17- Left subclavian central line placement 02/20/17-Right radial A-line placement 02/22/17-EGD/colonoscopy 02/28/17-right radial a line 02/28/17- Endotracheal intubation 02/28/17- right sided introducer catheter placement 02/28/17- Right IJ central line placement 02/28/17-Right chest tube placement 02/28/17- Embolization of inferior and superior sacral branches of right internal iliac artery 03/01/17- Hemodialysis access catheter 03/03/17-Right IJ central line placement 03/11/17-Extubated 03/13/17- Endotracheal intubation (Aftab Cratwright) Patient/Family Conference Present at Family Conference: Met with patient's sister. . Family Conference Location: Bedside, Hallway Issues Discussed: * Palliative care role, purpose, approach * Additional medical, psychosocial, and spiritual history * Patients general health, functional status, and cognitive changes in the months leading up to the current hospitalization * Patient/family understanding of the current medical problems * Patient/family understanding of prognosis * Patients goals of care as best understood from advance directives and/or conversations and/or values * Current medical treatment options and benefits/burdens of those options * Likely scenarios comparing ongoing aggressive care with a transition to comfort measures only * Questions answered to the best of my ability * Palliative care contact information provided (Aftab Cartwright) Assessment and Plan Disease Oriented Problem List: (1) Acute respiratory failure (2) Septic shock (3) Aspiration pneumonia (4) Acute renal failure (5) CKD (chronic kidney disease) stage 3, GFR 30-59 ml/min (6) Cardiomyopathy (7) DVT of lower extremity, bilateral (8) Thrombophlebitis arm (9) Diabetes mellitus (10) Gout (11) HTN (hypertension) (12) Hyperlipidemia Symptom Scale: (1) Shortness of breath 0-10 Scale: Unable to quantify (2) Debility 0-10 Scale: Unable to quantify (3) Pain 0-10 Scale: Unable to quantify Pertinent Non-Medical Issues Psychosocial:Patient was born and raised in [place], [place]. Patient was once for 20 years, now and has 2 adult sons. 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 He recently resigned due to failing health. Spiritual: No taoist affiliation Legal: Ethical issues impacting care: None identified . Important Contacts Son-Davie Kerr - Son-Arnel Kerr- -cell -home Sister-Deb Curry .- Prognosis Mr Kerr is a 62 years old male with a past medical history of hypertension, asthma, diabetes, hyperlipidemia, chronic kidney disease and gout. Patient presented to the ED on 01/22/17 complaining of bilateral knee and right arm pain after a mechanical fall 4 or 5 days prior to coming to the ER. Clinical course complicated with increased weakness leading to numerous diagnostic work ups for possible transverse myelitis, DVTs, retroperitoneal hematoma, aspiration pneumonia, intubation x 4 times, septic and hemorrhagic shock requiring support with pressors and multiple pRBC, FFP transfusions as well as platelets and cryo , renal failure requiring hemodialysis and sacral wound Given ongoing comorbidities, and prolonged hospitalization, patient remains at risk for further complications, deterioration and decline leading to . Code Status: Full Code Plan PLAN: Legal decision maker: Patient is currently intubated, sedated on a mechanical ventilation and is not able to make any medical decisions for himself at this time. It is unclear if patient will regain capacity to make medical decisions at this time. Patient has 2 adult sons Davie Kerr and Arnel Kerr. According to [place] Statute, his two aforementioned sons will serve as his health care proxys. * Met with patient's sister (Deb). Spoke with patient's son (Davie) via telephone to introduce the Palliative Care team, contact information provided. Attempted to contact son ( Arnel) who lives in [place]. A message was left on his home phone, unable to leave a message on Arnel's cell phone. awaiting return phone. * Discussed patient with bedside nurse ( Lilian) and Dr. Puente Goals: Aggressive at this time- pending tentative family meeting tomorrow at 11am. Possible tracheostomy after family meeting to determine who will act in the role of HCP decision maker and to further clarify goals of care. CODE STATUS: Full Code SYMPTOMS: * Shortness of breath: Multifactorial. Patient has had aspiration pneumonia. Patient has been intubated 4 times this hospitalization. Patient on duonebs. Patient will probably require tracheostomy placement. * Pain: Patient presented initially complaining of pain to right wrist and bilateral knees after a mechanical fall and has a hx of falls. Patient currently on a Fentanyl drip at 50mcg/hr. * Debility: Progressive. Patient has had decline in his health for the past 4 months, with ambulatory problems and prolonged hospitalization. Patient remains at high risk for further physical deconditioning and debility. PT consulted. Palliative care will continue to follow the patient during hospital course as condition evolves, to assist patient/decision-maker with understanding of their medical conditions, weighing benefits/burdens of treatment options, for clarification of goals of treatment. Additionally will assist with any symptoms of palliative concern (Aftab Cartwright) Code Status: Full Code Plan Above assessment and plan reviewed, patient evaluated in dual visit with MURPHY Melendez. Agree with above assessment and plan. (Mahi Luis) Thank you for the opportunity to participate in the care of Mr. Kerr. (Aftab Cartwright) Attestation To help prompt me to consider important information that might be impacting todays encounter, some historical information from prior notes written by myself or my colleagues may have been brought forward into todays note. My signature on this note, however, is an attestation that I personally performed the exam noted today, and, unless otherwise dated, the interactions with patient , family, and staff as well as the review of records noted all occurred today. I also attest that the listed assessment and stated plan reflect my best clinical judgment today based on the combination of historical information, prior notes, and todays exam/ interactions. The level of evaluation / management services and/or time that is claimed for this visit does NOT include work or time done by myself or other providers on previous visits. . (Aftab Cartwright) Collaborating MD Comments Chart reviewed. Case discussed with palliative care MOTOR VEHICLE ESCORT DRIVER. Above note reviewed and I concur. . (Austen Knapp MD) Aftab Cartwright Mar 13, 2017 14:03 Mahi Luis Mar 14, 2017 13:35 Austen Knapp MD Mar 15, 2017 17:18
[2017-03-13] MEDS ORDERED: VANCOMYCIN INJ 1,000 MG in SODIUM CHLOR 0.9% 250 ML INJ 250 ML IV ONE (17:00)
[2017-03-13] MEDS: ERTAPENEM INJ 1,000 MG in SODIUM CHLORIDE 0.9% INJ 100 ML IV SCH (20:34)
[2017-03-13] MEDS: ATORVASTATIN 10 MG TAB PO SCH (20:36)
[2017-03-14] VITALS (21 sets, daily range): BP systolic 92–118; BP diastolic 50–61; PULSE 97–118; RESP 16–25; TEMP 98.2–100.8; O2SAT 98–100
[2017-03-14] MEDS: oxyCODONE HCL ORAL CONC 5 MG/0.25 ML SYRINGE PO SCH ×6 (01:27→22:00)
[2017-03-14] MEDS: RESP: ALBUTEROL 2.5 MG/IPRATROPIUM 0.5 MG NEB (SCH) NEB ×2 (02:53→08:05)
[2017-03-14] MEDS: INSULIN NovoLIN REGULAR SUPPLEMENTAL SCALE SQ SCH ×5 (04:00→20:00)
[2017-03-14 05:04] LABS: AUTOMATED NEUTROPHIL # 12.4 TH/MM3 (1.8-7.7); BASOPHIL # 0.1 TH/MM3 (0-0.2); BASOPHIL % 0.9 % (0.0-2.0); EOSINOPHIL # 0.3 TH/MM3 (0-0.4); EOSINOPHIL % 2.3 % (0.0-4.0); HEMATOCRIT 23.3 % (39.0-51.0); LYMPH % 7.5 % (9.0-44.0); LYMPHOCYTE # 1.1 TH/MM3 (1.0-4.8); MEAN CELL VOLUME 90.3 FL (80.0-100.0); MEAN CORPUSCULAR HEMOGLOBIN 29.3 PG (27.0-34.0); MEAN CORPUSCULAR HGB CONC 32.4 % (32.0-36.0); MONO % 4.8 % (0.0-8.0); NEUT % 84.5 % (16.0-70.0); PLATELET COUNT 282 TH/MM3 (150-450); RED BLOOD COUNT 2.58 MIL/MM3 (4.50-5.90); RED CELL DISTRIBUTION WIDTH 15.6 % (11.6-17.2); WHITE BLOOD COUNT 14.6 TH/MM3 (4.0-11.0)
[2017-03-14] MEDS: METOCLOPRAMIDE HCL 10 MG/2 ML VIAL IV PUSH SCH ×3 (05:23→21:29)
[2017-03-14] MEDS: ACETAMINOPHEN 650 MG/20.3 ML UDC PO PRN (05:24)
[2017-03-14 05:29] LABS: ALKALINE PHOSPHATASE 119 U/L (45-117); TOTAL BILIRUBIN ADULT 0.6 MG/DL (0.2-1.0)
[2017-03-14 05:39] LABS: ALT (GPT) 19 U/L (12-78); ANION GAP 12 MEQ/L (5-15); AST (GOT) 43 U/L (15-37); BICARBONATE 19.6 MEQ/L (21.0-32.0); BLOOD UREA NITROGEN 64 MG/DL (7-18); CHLORIDE 118 MEQ/L (98-107); GLOMERULAR FILTRATION RATE 34 ML/MIN (>89); HEMO FLAGS AUTO DIFF; MAGNESIUM 1.7 MG/DL (1.5-2.5); POTASSIUM 3.6 MEQ/L (3.5-5.1); SODIUM (NA) 150 MEQ/L (136-145)
[2017-03-14] MEDS: LACTOBACILLUS ACIDOPHILUS TAB PO SCH ×3 (08:18→18:00)
[2017-03-14] MEDS: LANSOPRAZOLE SOLUTAB 30 MG TAB NG SCH ×2 (08:18→21:00)
[2017-03-14] MEDS: SULFAMETHOXAZOLE-TRIMETHOPRIM 400-80 MG TAB PO SCH ×2 (08:18→21:00)
[2017-03-14] MEDS ORDERED: SODIUM CHLOR 0.9% 250 ML INJ 250 ML IV ONE (08:45)
[2017-03-14 08:55] LABS: BANDS 12 % (0-6); METAMYELOCYTES 2 % (0-1); MYELOCYTES 2 % (0-0); NEUTROPHIL # MANUAL DIFF 13.1 TH/MM3 (1.8-7.7); PLATELET ESTIMATE SMEAR NORMAL (NORMAL); PLATELET MORPHOLOGY NORMAL (NORMAL); POLYS (SEG NEUTROPHILS) 74 % (16-70); SCAN/DIFF FINAL DIFF MANUAL; WBC DIFF SAMPLE 100
[2017-03-14] MEDS: ATENOLOL 25 MG TAB PO SCH ×2 (08:59→21:00)
[2017-03-14] MEDS: SODIUM CHLORIDE 0.9% FLUSH 10 ML FLUSH IV FLUSH SCH ×3 (09:00→21:00)
[2017-03-14] MEDS: INSULIN DETEMIR 100 UNITS/ML VIAL SQ SCH ×2 (09:00→21:00)
[2017-03-14] MEDS: FUROSEMIDE 40 MG/4 ML VIAL IV PUSH SCH ×2 (09:17→17:21)
[2017-03-14] MEDS: MIDAZOLAM 100 MG/100 ML INJ 100 ML IV PRN (09:21)
[2017-03-14] MEDS: CHLORHEXIDINE 0.12% (ORAL KIT) 15 ML CUP MT SCH ×2 (09:22→20:00)
[2017-03-14] MEDS ORDERED: ROCURONIUM INJ 50 MG/5 ML VIAL ONE (10:39)
--- NOTE | 2017-03-14 10:39 | HHI.IDPN ---
Subjective Subjective Remarks Patient is a 62-year-old male, admitted to the hospital for evaluation of pain in his right wrist. He gave a history of falling about a week ago and apparently had immediate pain in the right wrist. He did not seek any medical attention initially because reportedly he was very busy. He eventually presented, and he was found to have a distal ulnar fracture on plain films. He also had some redness and swelling. Orthopedics saw the patient, and was being treated conservatively with the splint. During this hospitalization also he started complaining of generalized weakness but more so in his lower extremity than his upper extremity. He had swelling in both lower extremity which revealed evidence of DVT in the posterior tibial veins. Neurology had seen the patient and he underwent lumbar puncture which apparently was traumatic. Patient was therefore not given anticoagulation because of the traumatic LP, and he underwent placement of an IVC filter on January 25. Patient had another lumbar puncture on February 01. He was felt to have transverse myelitis, and he was given high-dose IV Solu-Medrol from January 27 to February 02. There was apparently some improvement in his weakness. The imaging studies done for his weakness showed some spinal stenosis, and neurosurgery was consult that and recommended that there was no surgical intervention to be done. Patient has been stabilizing, but last night apparently deteriorated, and he ended up getting intubated, and had significant hypotension requiring pressors. There was also an ultrasound done of his left upper extremity which showed DVT, and there was evidence of superior 2 thrombophlebitis. Vascular surgery was consult to it and he had IND on his left upper extremity. Patient has had some fevers since yesterday. 2 blood cultures were done yesterday and they're now reported as growing gram-positive cocci in [place] in clusters. He is currently sedated and intubated. He is on Levophed and vasopressin. A central line was placed as well as a femoral a line. He apparently had an IV in his left upper extremity and that was removed yesterday. Patient also has history of chronic kidney disease, and nephrology evaluated the patient. He was just being monitored for his renal insufficiency. Infectious disease consultation has been requested to evaluate the patient. Notes reviewed D/W RN Fevers since last night On levophed For trach today Reintubated 03/12 Antibiotics I attest that I obtained, updated or reviewed the home and current medications. Antibiotics - Invanz Bactrim Vanco intermittent dosing Current Medications Medications (Trade) Dose Ordered Sig/Rosalia Route Start Time Stop Time Status Last Admin (NS Flush) 2 ml UNSCH PRN IV FLUSH 01/23/17 00:30 02/01/17 05:07 (NS Flush) 2 ml BID IV FLUSH 01/23/17 09:00 03/13/17 20:35 (Zofran Inj) 4 mg Q6H PRN IVP 01/23/17 00:30 02/26/17 17:23 (Narcan Inj) 0.4 mg UNSCH PRN IV 01/23/17 00:30 (Edna-Colace) 1 tab BID PO 01/23/17 09:00 Future Hold 02/24/17 20:31 (Dulcolax Supp) 10 mg DAILY PRN RECTAL 01/23/17 00:30 (Lipitor) 10 mg HS PO 01/24/17 21:00 Future hold 03/13/17 20:36 (Glucagon Inj) 1 mg UNSCH PRN OTHER 02/11/17 05:45 02/18/17 18:53 (Flomax) 0.4 mg Q12HR PO 02/17/17 15:00 Future Hold 02/26/17 08:49 (Lovenox Inj) 100 mg Q12H SQ 02/18/17 12:00 Future Hold 02/26/17 16:20 (Lactinex) 1 tab TID PO 02/19/17 13:00 03/14/17 08:18 (Apresoline Inj) 10 mg Q30M PRN IV PUSH 02/20/17 11:45 03/11/17 12:37 (D50w (Vial) Inj) 25 ml UNSCH PRN IV PUSH 02/20/17 12:45 Sodium Chloride 1,000 ml @ 20 mls/hr Q24H IV 02/22/17 13:00 03/12/17 14:50 Oxacillin Sodium 2 gm/Sodium Chloride 100 ml @ 200 mls/hr Q4H IV 02/23/17 12:00 Future Hold 02/27/17 04:25 (Questran Light Pkt) 4 gm Q12HR PO 02/25/17 21:00 Future Hold 02/27/17 10:32 (Aldactone) 25 mg DAILY PO 02/27/17 09:00 Future Hold (Reglan Inj) 5 mg Q8HR IV PUSH 02/26/17 22:00 03/14/17 05:23 (Peridex 0.12% Liq) 15 ml BID@08,20 MT 02/28/17 08:00 03/14/17 09:22 (Albuterol Neb) 2.5 mg Q2HR NEB PRN NEB 02/28/17 07:45 (NovoLIN R SUPPLEMENTAL SCALE) 1 Q4HR SQ 02/28/17 08:00 03/11/17 04:54 Sodium Chloride 1,000 ml @ 0 mls/hr Q0M PRN OTHER 03/01/17 11:19 03/02/17 13:00 Sodium Chloride 1,000 ml @ 200 mls/hr Q5H PRN IV 03/01/17 11:19 Sodium Chloride 1,000 ml @ 0 mls/hr Q0M PRN OTHER 03/01/17 11:19 (Mannitol Inj) 12.5 gm UNSCH PRN IV 03/01/17 11:30 03/08/17 17:27 Albumin Human 100 ml @ 60 mls/hr UNSCH PRN IV 03/01/17 11:30 03/08/17 17:28 (NS Flush) 5 ml UNSCH PRN IV FLUSH 03/01/17 11:30 (Heparin Inj) UNSCH PRN .XX 03/01/17 11:30 03/02/17 13:00 (Gentamicin (Dialysis) Inj) 20 mg UNSCH PRN OTHER 03/01/17 11:30 03/13/17 11:52 (Tylenol) 650 mg UNSCH PRN PO 03/01/17 11:30 (Nitrostat Sl) 0.4 mg UNSCH PRN SL 03/01/17 11:30 (Gelfoam 12 Mm/7 Mm Top) 1 foam UNSCH PRN TOP 03/01/17 11:30 (NS Flush) UNSCH PRN IV FLUSH 03/01/17 13:00 (Heparin Inj) UNSCH PRN IV FLUSH 03/01/17 13:00 Ertapenem 1000 mg/ Sodium Chloride 100 ml @ 200 mls/hr Q24H IV 03/01/17 20:00 03/15/17 23:00 03/13/17 20:34 (NS Flush) DAILY IV FLUSH 03/04/17 09:00 03/14/17 09:23 (NS Flush) UNSCH PRN IV FLUSH 03/03/17 18:45 (Mag-Ox) 800 mg UNSCH PRN PO 03/05/17 07:45 03/07/17 14:00 Magnesium Sulfate 4 gm/Sodium Chloride 100 ml @ 50 mls/hr UNSCH PRN IV 03/05/17 07:45 Magnesium Sulfate 2 gm/Sodium Chloride 100 ml @ 50 mls/hr UNSCH PRN IV 03/05/17 07:45 03/08/17 14:29 Potassium Chloride 100 ml @ 50 mls/hr Q2H PRN IV 03/05/17 07:45 03/07/17 08:01 Potassium Chloride 100 ml @ 50 mls/hr Q2H PRN IV 03/05/17 07:45 Potassium Chloride 100 ml @ 50 mls/hr Q2H PRN IV 03/05/17 07:45 Potassium Chloride 100 ml @ 25 mls/hr UNSCH PRN IV 03/05/17 07:45 (K-Phos) 2,000 mg Q4H PRN PO 03/05/17 07:45 (K-Phos) 2,000 mg UNSCH PRN PO/TUBE 03/05/17 07:45 Potassium Phosphate 30 mmol/ Sodium Chloride 260 ml @ 42 mls/hr UNSCH PRN IV 03/05/17 07:45 03/12/17 14:56 Sodium Phosphate 30 mmol/Sodium Chloride 250 ml @ 42 mls/hr UNSCH PRN IV 03/05/17 07:45 (Roxicodone Intensol Liq) 10 mg Q4H PO 03/05/17 14:00 03/14/17 05:23 (Levemir Inj) 5 units BID SQ 03/07/17 21:00 03/13/17 20:36 (Prevacid Odt) 30 mg BID NG 03/07/17 21:00 03/14/17 08:18 (Tylenol 650 Mg/ 20 ml Liq) 650 mg Q6H PRN PO 03/09/17 10:15 03/14/17 05:24 (Lasix Inj) 40 mg BID@09,18 IV PUSH 03/10/17 18:00 03/14/17 09:17 (Duoneb Neb) 1 ampule Q6HR NEB NEB 03/10/17 16:00 03/14/17 08:05 (Bactrim 400-80 Mg) 1 tab Q12HR PO 03/11/17 12:00 03/18/17 11:59 03/14/17 08:18 (Trandate Inj) 20 mg Q4H PRN IV 03/12/17 04:30 03/13/17 02:29 (Tenormin) 25 mg Q12HR PO 03/12/17 10:00 Phenylephrine HCl 160 mg/Dextrose 500 ml @ 7.5 mls/hr TITRATE PRN IV 03/12/17 10:45 (Brethine Inj) 1 mg UNSCH PRN SQ 03/12/17 10:45 Midazolam HCl 100 ml @ 2 mls/hr TITRATE PRN IV 03/13/17 01:00 03/14/17 09:21 Fentanyl Citrate 250 ml @ 5 mls/hr TITRATE PRN IV 03/13/17 01:00 03/13/17 01:30 Norepinephrine Bitartrate 16 mg/ Sodium Chloride 250 ml @ 1.87 mls/hr TITRATE PRN IV 03/13/17 10:45 03/13/17 12:04 Sodium Chloride 250 ml @ 15 mls/hr ONCE ONCE IV 03/14/17 08:45 03/15/17 01:24 03/14/17 09:22 Nnamdi haro Past Medical History Reviewed Allergies: Coded Allergies: levofloxacin (Verified Allergy, Severe, 01/22/17) Objective . Vital Signs Date Time Temp Pulse Resp B/P (MAP) Pulse Ox O2 Delivery O2 Flow Rate FiO2 03/14/17 09:43 100.3 110 18 98/55 98 03/14/17 08:00 98 40 03/14/17 07:00 99 Mechanical Ventilator 40 03/14/17 06:00 118 03/14/17 04:00 116 03/14/17 04:00 100.8 116 25 100/61 (74) 100 03/14/17 04:00 50 03/14/17 03:45 100 40 03/14/17 02:00 118 03/14/17 00:30 100 40 03/14/17 00:00 100.0 116 20 111/58 (75) 100 03/14/17 00:00 116 03/14/17 00:00 50 03/13/17 23:26 20 03/13/17 22:39 100 40 03/13/17 22:00 108 03/13/17 20:00 99.8 104 23 101/62 (75) 100 03/13/17 20:00 50 03/13/17 20:00 104 03/13/17 19:35 100 40 03/13/17 19:00 100 Mechanical Ventilator 40 03/13/17 18:00 104 03/13/17 16:00 50 03/13/17 16:00 106 03/13/17 16:00 100.0 106 21 94/62 (73) 100 03/13/17 14:00 108 03/13/17 12:24 100 40 03/13/17 12:04 90 110/67 03/13/17 12:00 50 03/13/17 12:00 99.5 93 19 110/67 (81) 100 03/13/17 12:00 93 03/14/17 03/14/17 03/15/17 15:00 23:00 07:00 Intake Total 15 ml Balance 15 ml Blood Product IV Normal Saline Flush 15 ml . Laboratory Tests Test 03/12/17 22:15 03/13/17 04:20 03/14/17 04:45 White Blood Count 13.6 TH/MM3 21.1 TH/MM3 14.6 TH/MM3 Red Blood Count 2.63 MIL/MM3 2.87 MIL/MM3 2.58 MIL/MM3 Hemoglobin 7.8 GM/DL 8.4 GM/DL 7.6 GM/DL Hematocrit 23.9 % 26.1 % 23.3 % Mean Corpuscular Volume 90.7 FL 90.9 FL 90.3 FL Mean Corpuscular Hemoglobin 29.5 PG 29.1 PG 29.3 PG Mean Corpuscular Hemoglobin Concent 32.6 % 32.0 % 32.4 % Red Cell Distribution Width 15.3 % 15.7 % 15.6 % Platelet Count 226 TH/MM3 316 TH/MM3 282 TH/MM3 Mean Platelet Volume 8.2 FL 8.1 FL 7.9 FL Neutrophils (%) (Auto) 85.5 % 84.5 % Lymphocytes (%) (Auto) 6.7 % 7.5 % Monocytes (%) (Auto) 6.0 % 4.8 % Eosinophils (%) (Auto) 1.3 % 2.3 % Basophils (%) (Auto) 0.5 % 0.9 % Neutrophils # (Auto) 18.1 TH/MM3 12.4 TH/MM3 Lymphocytes # (Auto) 1.4 TH/MM3 1.1 TH/MM3 Monocytes # (Auto) 1.3 TH/MM3 0.7 TH/MM3 Eosinophils # (Auto) 0.3 TH/MM3 0.3 TH/MM3 Basophils # (Auto) 0.1 TH/MM3 0.1 TH/MM3 CBC Comment AUTO DIFF AUTO DIFF Differential Comment AUTO DIFF CONFIRMED FINAL DIFF MANUAL Differential Total Cells Counted 100 Neutrophils % (Manual) 74 % Band Neutrophils % 12 % Lymphocytes % 4 % Monocytes % 6 % Neutrophils # (Manual) 13.1 TH/MM3 Metamyelocytes 2 % Myelocytes 2 % Platelet Estimate NORMAL Platelet Morphology Comment NORMAL Laboratory Tests Test 03/13/17 04:20 03/14/17 04:45 Blood Urea Nitrogen 66 MG/DL 64 MG/DL Creatinine 1.73 MG/DL 1.99 MG/DL Random Glucose 100 MG/DL 126 MG/DL Total Protein 5.3 GM/DL 5.1 GM/DL Albumin 2.1 GM/DL 1.7 GM/DL Calcium Level 7.9 MG/DL 8.0 MG/DL Phosphorus Level 4.0 MG/DL 4.3 MG/DL Magnesium Level 1.7 MG/DL 1.7 MG/DL Alkaline Phosphatase 118 U/L 119 U/L Aspartate Amino Transf (AST/SGOT) 42 U/L 43 U/L Alanine Aminotransferase (ALT/SGPT) 23 U/L 19 U/L Total Bilirubin 0.7 MG/DL 0.6 MG/DL Sodium Level 150 MEQ/L 150 MEQ/L Potassium Level 3.4 MEQ/L 3.6 MEQ/L Chloride Level 118 MEQ/L 118 MEQ/L Carbon Dioxide Level 19.0 MEQ/L 19.6 MEQ/L Anion Gap 13 MEQ/L 12 MEQ/L Estimat Glomerular Filtration Rate 40 ML/MIN 34 ML/MIN Microbiology Date/Time Source Procedure Growth Status 03/13/17 09:20 Sputum Endotracheal Gram Stain - Final Resulted 03/13/17 09:20 Sputum Endotracheal Sputum Culture Pending Resulted Imaging Chest X-Ray 03/02/17 0600 Signed Impressions: Service Date/Time: Thursday, March 02, 2017 01:56 - CONCLUSION: 1. Supine apparatus in good position. Bilateral space disease, left greater than right. Left-sided pleural effusion similar to prior exam. Trace Holloway MD Aortography 02/28/17 0000 Signed Impressions: Service Date/Time: Tuesday, February 28, 2017 08:01 - CONCLUSION: 1. Active hemorrhage from distal right lateral sacral and iliolumbar branches successfully coil and Gelfoam embolized, as above. Juan Bhakta MD Abdomen/Pelvis CT 02/28/17 0000 Signed Impressions: Service Date/Time: Tuesday, February 28, 2017 06:51 - CONCLUSION: 1. The right retroperitoneal hematoma has increased in size, as above. There are 2 serpiginous arterially enhancing structures visualized, one in the right psoas muscle and another extending into the hematoma at the right iliac fossa. These could represent sites of continued active bleeding. 2. Stable moderate size left and small right pleural effusion with associated compressive atelectasis. 3. Stable small volume of free fluid in the abdomen and pelvis. There is also anasarca. The findings concerning the retroperitoneal hematoma were discussed with Dr. Aguiar via telephone at approximately 7: 10 AM on 02/28/2017. Angelo Allen MD Chest CT 02/27/17 0000 Signed Impressions: Service Date/Time: Monday, February 27, 2017 18:12 - CONCLUSION: 1. Bilateral pleural effusions with bibasilar atelectasis, left greater than right. Tom Sanchez MD Abdomen X-Ray 02/26/17 Signed Impressions: Service Date/Time: Sunday, February 26, 2017 14:52 - CONCLUSION: 1. Nonobstructive bowel gas pattern. Juan Bhakta MD Upper Extremity Ultrasound 02/10/17 0000 Signed Impressions: Service Date/Time: Friday, February 10, 2017 18:46 - CONCLUSION: Occlusive thrombus in the cephalic and basilic veins. Benjamin Person MD Lung Scan- Nuclear Medicine 02/10/17 0000 Signed Impressions: Service Date/Time: Friday, February 10, 2017 22:17 - CONCLUSION: Low probability pulmonary embolism. Candido Patton MD Head CT 02/10/17 0000 Signed Impressions: Service Date/Time: Friday, February 10, 2017 23:51 - CONCLUSION: Negative noncontrast CT brain. Candido Patton MD Wrist X-Ray 02/06/17 Signed Impressions: Service Date/Time: Monday, February 06, 2017 12:50 - CONCLUSION: Minimally displaced distal radius and ulnar fractures. Armando Dodd MD Lumbar Puncture Fluoroscopy 02/01/17 0000 Signed Impressions: Service Date/Time: January 09:35 - CONCLUSION: Uncomplicated fluoroscopically guided lumbar puncture. CSF was clear. Nabeel Peralta MD Head Magnetic Resonance Angiography 01/27/17 Signed Impressions: Service Date/Time: Friday, January 27, 2017 10:33 - CONCLUSION: No intracranial vascular abnormality is identified. There is no aneurysm visualized. Angelo Allen MD IVC Filter Placement X-Ray 01/25/17 Signed Impressions: Service Date/Time: January 10:29 - CONCLUSION: Uncomplicated inferior vena cava filter placement as above. Yung Fowler MD Thoracic Spine MRI 01/24/17 Signed Impressions: Service Date/Time: Tuesday, January 24, 2017 22:29 - CONCLUSION: 1. Mild degenerative spondylosis most prominently at T11-L1 with slight effacement of the anterior thecal sac and left lateral recess. No significant neural foraminal stenosis. 2. No acute fracture. Juan Bhakta MD Renal Ultrasound 01/23/17 Signed Impressions: Service Date/Time: Monday, January 23, 2017 08:53 - CONCLUSION: 1. Evidence of chronic parenchymal disease of both kidneys. No obstructive uropathy or other acute abnormality demonstrated. 2. Trace ascites, nonspecific. Angelo Garrido MD Lumbar Spine MRI 01/23/17 Signed Impressions: Service Date/Time: Monday, January 23, 2017 17:01 - CONCLUSION: 1. At L4-5 is a broad-based disc protrusion with severe central canal and lateral recess stenosis and flattening of the exiting right L4 nerve root. 2. L5-S1 there is a disc protrusion and moderate stenosis with flattening of the exiting L5 nerve roots bilaterally. 3. At L3-4 there is a moderate to severe central stenosis and lateral recess stenosis with mild foraminal stenosis. 4. No acute fracture or spondylolisthesis. Trace Holloway MD Lower Extremity Ultrasound 01/23/17 Signed Impressions: Service Date/Time: Monday, January 23, 2017 09:53 - CONCLUSION: Bilateral focal lower extremity DVT involving the posterior tibial veins. Angelo Garrido MD Cervical Spine MRI 01/23/17 Signed Impressions: Service Date/Time: Monday, January 23, 2017 17:01 - CONCLUSION: 1. Multilevel cervical spine degenerative changes as above. 2. Mild degrees of spinal stenosis at C3/C4-C6/C7. No cord compression or cord signal abnormality. 3. Age indeterminate left paracentral/foraminal disc protrusion at C6/C7. 4. Multilevel foraminal stenosis, most severe on the left at C6/C7. Please see individual levels above. 5. No fracture or subluxation of the cervical spine. Angelo Garrido MD Brain MRI 01/23/17 Signed Impressions: Service Date/Time: Monday, January 23, 2017 17:01 - CONCLUSION: 1. No acute stroke or other acute intracranial abnormality demonstrated. 2. Moderate severity chronic white matter changes, nonspecific but most likely related to chronic small vessel disease. 3. Few scattered tiny lacunar infarcts of the brainstem. 4. Given the findings are not entirely specific, clinical evaluation for possible multiple sclerosis recommended. Angelo Garrido MD Knee X-Ray 01/22/[id number] Signed Impressions: Service Date/Time: Sunday, January 22, 2017 21:17 - CONCLUSION: 1. Evidence of moderate to large joint effusion. 2. No acute fracture or malalignment. 3. Mild 3 compartment osteoarthritic change. Benjamin Person MD Hip and Pelvis X-Ray [id number]/22/[id number] Signed Impressions: Service Date/Time: Sunday, January 22, 2017 21:10 - CONCLUSION: 1. Mild to moderate degenerative change of both hips with no acute fracture or malalignment. There is flattening and remodeling of the right humeral head. Benjamin Person MD Chest X-Ray 02/24/17 0600 Signed Impressions: Service Date/Time: Friday, February 24, 2017 03:58 - CONCLUSION: 1. Unchanged left lower lobe infiltrate with small effusion. Candido Mendoza Jr., MD Chest X-Ray 02/20/17 0000 Signed Impressions: Service Date/Time: Monday, February 20, 2017 11:36 - CONCLUSION: 1. Stable very small right and small left pleural effusions with left lower lobe airspace consolidation. 2. No significant interval change. Juan Bhakta MD Abdomen/Pelvis CT 02/19/17 0000 Signed Impressions: Service Date/Time: Sunday, February 19, 2017 19:09 - CONCLUSION: 1. Areas of calcification seen in the right renal collecting system, right renal pelvis, and proximal right ureter. These appear to layer and be dependent suggesting likely to represent smaller areas of milk of calcium or small stones. There is mild dilatation of the right renal collecting system and right ureter. A definite obstructing stone at this time is not seen. 2. A small amount of air within the urinary bladder. This should be correlated with any recent catheterization. 3. Mild bilateral pleural effusions with accompanying atelectasis or consolidation at the left base. The consolidation was present previously. 4. Prominent degenerative change in the lumbar spine and at the hip joints bilaterally. Angelo Manzo MD Chest X-Ray 02/12/17 0600 Signed Impressions: Service Date/Time: Sunday, February 12, 2017 03:32 - CONCLUSION: 1. Support apparatus in good position. Relatively stable basilar airspace disease and pleural effusions. Trace Holloway MD Upper Extremity Ultrasound 02/10/17 0000 Signed Impressions: Service Date/Time: Friday, February 10, 2017 18:46 - CONCLUSION: Occlusive thrombus in the cephalic and basilic veins. Benjamin Person MD Lung Scan- Nuclear Medicine 02/10/17 0000 Signed Impressions: Service Date/Time: Friday, February 10, 2017 22:17 - CONCLUSION: Low probability pulmonary embolism. Candido Patton MD Head CT 02/10/17 0000 Signed Impressions: Service Date/Time: Friday, February 10, 2017 23:51 - CONCLUSION: Negative noncontrast CT brain. Candido Patton MD Chest CT 02/10/17 0000 Signed Impressions: Service Date/Time: Friday, February 10, 2017 23:56 - CONCLUSION: Left lower lobe collapse with consolidation. Patchy infiltrates the medial right lower lung. Candido Patton MD Abdomen/Pelvis CT 02/10/17 0000 Signed Impressions: Service Date/Time: Friday, February 10, 2017 23:59 - CONCLUSION: 1. Nonobstructing 12 mm calcified stone lower pole right kidney. 2. Atrophic left kidney with significant cortical thinning. 3. Bilateral fat-containing inguinal hernias, large on the right, and moderate on the left. 4. Consolidative collapse of the left lower lobe. Candido Patton MD Abdomen X-Ray 02/10/17 0000 Signed Impressions: Service Date/Time: Friday, February 10, 2017 08:14 - CONCLUSION: No acute abdominal abnormality is identified. Angelo Allen MD Wrist X-Ray 02/06/17 0000 Signed Impressions: Service Date/Time: Monday, February 06, 2017 12:50 - CONCLUSION: Minimally displaced distal radius and ulnar fractures. Armando Dodd MD Lumbar Puncture Fluoroscopy 02/01/17 0000 Signed Impressions: Service Date/Time: January 09:35 - CONCLUSION: Uncomplicated fluoroscopically guided lumbar puncture. CSF was clear. Nabeel Peralta MD Head Magnetic Resonance Angiography 01/27/17 Signed Impressions: Service Date/Time: Friday, January 27, 2017 10:33 - CONCLUSION: No intracranial vascular abnormality is identified. There is no aneurysm visualized. Angelo Allen MD IVC Filter Placement X-Ray 01/25/17 Signed Impressions: Service Date/Time: January 10:29 - CONCLUSION: Uncomplicated inferior vena cava filter placement as above. Yung Fowler MD Thoracic Spine MRI 01/24/17 Signed Impressions: Service Date/Time: Tuesday, January 24, 2017 22:29 - CONCLUSION: 1. Mild degenerative spondylosis most prominently at T11-L1 with slight effacement of the anterior thecal sac and left lateral recess. No significant neural foraminal stenosis. 2. No acute fracture. Juan Bhakta MD Renal Ultrasound 01/23/17 Signed Impressions: Service Date/Time: Monday, January 23, 2017 08:53 - CONCLUSION: 1. Evidence of chronic parenchymal disease of both kidneys. No obstructive uropathy or other acute abnormality demonstrated. 2. Trace ascites, nonspecific. Angelo Garrido MD Lumbar Spine MRI 01/23/17 0000 Signed Impressions: Service Date/Time: Monday, January 23, 2017 17:01 - CONCLUSION: 1. At L4-5 is a broad-based disc protrusion with severe central canal and lateral recess stenosis and flattening of the exiting right L4 nerve root. 2. L5-S1 there is a disc protrusion and moderate stenosis with flattening of the exiting L5 nerve roots bilaterally. 3. At L3-4 there is a moderate to severe central stenosis and lateral recess stenosis with mild foraminal stenosis. 4. No acute fracture or spondylolisthesis. Trace Holloway MD Lower Extremity Ultrasound 01/23/17 Signed Impressions: Service Date/Time: Monday, January 23, 2017 09:53 - CONCLUSION: Bilateral focal lower extremity DVT involving the posterior tibial veins. Angelo Garrido MD Cervical Spine MRI 01/23/17 Signed Impressions: Service Date/Time: Monday, January 23, 2017 17:01 - CONCLUSION: 1. Multilevel cervical spine degenerative changes as above. 2. Mild degrees of spinal stenosis at C3/C4-C6/C7. No cord compression or cord signal abnormality. 3. Age indeterminate left paracentral/foraminal disc protrusion at C6/C7. 4. Multilevel foraminal stenosis, most severe on the left at C6/C7. Please see individual levels above. 5. No fracture or subluxation of the cervical spine. Angelo Garrido MD Brain MRI 01/23/17 Signed Impressions: Service Date/Time: Monday, January 23, 2017 17:01 - CONCLUSION: 1. No acute stroke or other acute intracranial abnormality demonstrated. 2. Moderate severity chronic white matter changes, nonspecific but most likely related to chronic small vessel disease. 3. Few scattered tiny lacunar infarcts of the brainstem. 4. Given the findings are not entirely specific, clinical evaluation for possible multiple sclerosis recommended. Angelo Garrido MD Knee X-Ray 01/22/172053 Signed Impressions: Service Date/Time: Sunday, January 22, 2017 21:17 - CONCLUSION: 1. Evidence of moderate to large joint effusion. 2. No acute fracture or malalignment. 3. Mild 3 compartment osteoarthritic change. Benjamin Person MD Hip and Pelvis X-Ray [id number]/22/172053 Signed Impressions: Service Date/Time: [place], January 22, 2017 21:10 - CONCLUSION: 1. Mild to moderate degenerative change of both hips with no acute fracture or malalignment. There is flattening and remodeling of the right humeral head. Benjamin Person MD Physical Exam GENERAL: Sedated, NAD. On the vent SKIN: Cool and dry. No generalized rash. Still very edematous EYES: Valinda conjunctiva. No petechia or hemorrhage. EARS, NOSE AND THROAT: Nose without bleeding or purulent nasal discharge. NECK: Trachea midline. Supple and no meningeal signs CARDIOVASCULAR: Regular rate and rhythm. Soft heart sounds. No murmurs, rubs or gallops heard RESPIRATORY: Coarse BS bilaterally, decreased at bases. ABDOMEN: Soft, mildly distended, some grimacing during palpation. EXTREMITIES: No clubbing, cyanosis. Edema feet better; edema hands better : very swollen scrotum, has a lot of sediment in his cath tubing NEUROLOGICAL: sedated PSYCHIATRIC: unable to assess LINE: Lines with no evidence of infection Assessment & Plan Remarks IMPRESSION Fevers - now with Kleb and Sten mal in sputum, tracheobronchitis, he is tolerating weaning New shock post reintubation 03/12 Shock, due to large R retroperitoneal bleed, S/P multiple transfusions and S/ P coiling of bleeders, resolved Elevated amylase and lipase, better Anemia, due to bleed, retroperitoneal MSSA sepsis, due to suppurative thrombophlebitis LUE, S/P I and D and excision of portion of cephalic vein - needs Rx until Nov Respiratory failure, has had several intubations - reintubated again 02/28, extubated 03/11 - reintubated again Recent Rx 7 days high dose solumedrol for transverse myelitis Wu LE DVT has IVC filter placed 01/25 - ?hypercoagulable state Chronic kidney disease, worsening creatinine - shock and compression of ureter by hematoma Known DM, HTN Gouty tophi both hands and feet Diarrhea, C diff negative UTI, GNR - repeat UA better, but a lot of sediment in the urine Thrombocytopenia, no evidence of DIC, ?meds, ?infection, ?due to bleed - improving RECOMMENDATION Continue Invanz for the Kleb ESBL+ - give till 03/15 Continue Bactrim to cover Sten mal Check Vanco level in AM - got dose 03/13, level 28 Follow new C/S Monitor temps' Monitor progress For trach today Possible PEG in few days palliative med following D/W Irene Vogel MD Mar 14, 2017 10:39
--- NOTE | 2017-03-14 12:11 | PD.PROCEDR ---
Procedure Note Procedure DX: Respiratory Failure (J96.00) OP: Bronchoscopy (76731) Procedure: Time out. Bronchoscope passed through vent circuit side port on elbow. Usual ICU monitoring in place. Mechanical ventilation performed. The mucosa of the main trachea was inflamed. The segmental bronchi both sides were inspected and suctioned for large amounts of dark brown sputum. Branching was anatomically normal. The scope and orotracheal tube were then withdrawn to the cricoid level. Visualization was accomplished from this position for the percutaneous trach insertion by another team. After trach insertion the scope was introduced through the new trach tube to confirm good position in the mid- trachea. Ventilation was then converetd to the new trach tube. Sats were easily maintained over 94% throughout the procedure. Nic West MD Mar 14, 2017 12:11
[2017-03-14 12:19] LABS: HEMATOCRIT 28.4 % (39.0-51.0)
--- NOTE | 2017-03-14 13:32 | RADRPT ---
EXAM DATE/TIME: 03/14/2017 13:41 [facility] COMPARISON: CHEST SINGLE AP, March 13, 2017, 1:52. INDICATIONS : Tracheostomy placement. MEDICAL HISTORY : Hypertension. Diabetes mellitus type 2. Gout SURGICAL HISTORY : Renal stents. ENCOUNTER: Subsequent ACUITY: 2 months PAIN SCORE: Non-responsive. LOCATION: Bilateral chest FINDINGS: Tracheostomy in position with the inferior tip slightly above the level of the clavicles.. Bilateral internal jugular catheter tips project over the proximal superior vena cava. No evidence pneumothor ax. Consolidation left lower lung with loss of delineation left hemidiaphragm and associated menisca l interface in the lower lateral left chest characteristic of a combination of pleural effusion and i nfiltrate. The right lung is clear. CONCLUSION: 1. Tracheostomy in good position. 2. Left lower lung infiltrates and left pleural effusion. Candido Patotn MD on March 14, 2017 at 13:29 Board Certified Radiologist. This report was verified electronically.
[2017-03-14] MEDS: SODIUM CHLOR 0.9% 1000 ML INJ 1,000 ML IV SCH (13:52)
--- NOTE | 2017-03-14 14:05 | HHI.HCPN ---
Reason for visit a. To assist with evaluation and management of symptoms including: shortness of breath, pain, debility b. To assist medical decision maker(s) with: better understanding of current medical conditions; weighing benefits/burdens of medical treatment options; making medical treatment decisions. (Mahi Luis) Subjective/Interval History Patient seen and assessed in room 1317. The patient has been intubated 4 times since his admission on 01/22/2017 status post tracheostomy this morning on 100% FiO2 via mechanical ventilator. Sedated with fentanyl and midazolam. Patient continues to require pressor support. Receiving hemodialysis. Plan for possible PEG tube an upcoming days. Ongoing fevers. Remains on Invanz for the Klebsiella ESBL+; on Bactrim to cover Stenotrophomonas maltophilia. Also on vancomycin. Follow-up chest x-ray on 03/14/17 showing left lower lung infiltrates and left pleural effusion. Infectious disease following. Lab work this morning 03/14/2017: = WBC: 14.6, hemoglobin 7.6, hematocrit 23.3, platelets 282, neutrophils 84.5% = Sodium: 150, potassium 3.6, chloride 118, carbon dioxide 19.6, glucose 126, calcium 8.0, phosphorus 4.3, magnesium 1.7 = BUN: 64, creatinine 1.99, GFR 34 = Total bilirubin: 0.6, AST 43, ALT 19, alkaline phosphatase 119 = Total protein 5.1, albumin 1.7 Nephrology and infectious disease continue to follow this patient. Gastroenterology, general surgery, vascular surgery, urology and cardiology has signed off. . Family/friend interactions Met with patient's son (Davie), ex- (Francesca) and 2 siblings (Deb and Matias ) in the family conference room. A message was left for the patient's son ( Arnel) who lives in [place] to invite him to participate in the family meeting this morning via conference call., but at this point in time no return phone call has been received. Also present, Aftab ARRINGTON. Patient remains critically ill and required reintubation for the fourth time on 03/13/2017 status post tracheostomy earlier this morning. An update was provided on the patient's clinical condition; questions regarding this patient's complicated hospital course were answered to the best of my ability. Family is verbalizing overall aggressive goals. However, they state the patient would not want to be kept on artificial life support for an extended period of time in a persistent vegetative state. The process of cardiopulmonary resuscitation was discussed at length-at this point in time the family desires that the patient remain and FULL CODE. Goals of care will be reassessed on a daily basis. . (Mahi Luis) Advance Directives Living Will: Never completed Health Care Surrogate: Never completed Durable Power of Upper [place]ather Sorter: Never completed (Mahi Luis) Advance Directive Specifics Documented care wishes: No known documented care wishes have been completed. . (Mahi Luis) Objective Vital Signs Date Time Temp Pulse Resp B/P (MAP) Pulse Ox O2 Delivery O2 Flow Rate FiO2 03/14/17 12:00 100.4 112 16 92/50 (64) 99 03/14/17 12:00 112 03/14/17 12:00 50 03/14/17 10:45 99 100 03/14/17 10:00 108 03/14/17 09:43 100.3 110 18 98/55 98 03/14/17 08:00 114 03/14/17 08:00 98 40 03/14/17 08:00 100.6 114 19 105/58 (74) 99 03/14/17 08:00 50 03/14/17 07:00 99 Mechanical Ventilator 40 03/14/17 06:00 118 03/14/17 04:00 116 03/14/17 04:00 100.8 116 25 100/61 (74) 100 03/14/17 04:00 50 03/14/17 03:45 100 40 03/14/17 02:00 118 03/14/17 00:30 100 40 03/14/17 00:00 100.0 116 20 111/58 (75) 100 03/14/17 00:00 116 03/14/17 00:00 50 03/13/17 23:26 20 03/13/17 22:39 100 40 03/13/17 22:00 108 03/13/17 20:00 99.8 104 23 101/62 (75) 100 03/13/17 20:00 50 03/13/17 20:00 104 03/13/17 19:35 100 40 03/13/17 19:00 100 Mechanical Ventilator 40 03/13/17 18:00 104 03/13/17 16:00 50 03/13/17 16:00 106 03/13/17 16:00 100.0 106 21 94/62 (73) 100 03/13/17 14:00 108 Intake & Output 03/14/17 03/14/17 07:00 19:00 Intake Total 537.5 ml 665 ml Output Total 125 ml Balance 412.5 ml 665 ml IV Total 245.5 ml Tube Feeding 172 ml Packed Cells 400 ml Blood Product IV Normal Saline Flush 265 ml Other 120 ml Output Urine Total 125 ml Tube Feeding Residual Discard 0 ml # Bowel Movements 1 . Physical Exam CONSTITUTIONAL/GENERAL: This is an adequately nourished patient, intubated, sedated on mechanical ventilation TUBES/LINES/DRAINS:RIJ TLC, LIJ Vas Cath, OGT, ETT, FC SKIN: No jaundice. Weeping edema. Ecchymoses on upper extremities. No wounds seen anteriorly. Low-grade temp. Not diaphoretic. HEAD: Atraumatic. Normocephalic. EYES: Pupils equal and round, slight reaction.No scleral icterus. No injection or drainage. Fundi not examined. ENT: Intubated and sedated. Nose without bleeding or purulent drainage. Moist oral mucosa. Clear oral secretions NECK: Trachea midline. Supple, nontender. CARDIOVASCULAR: Regular rate and rhythm without murmurs, gallops, or rubs. No JVD. RESPIRATORY/CHEST: Symmetric, unlabored respirations. Clear to auscultation. Breath sounds equal bilaterally. No wheezes, rales, or rhonchi. GASTROINTESTINAL: Abdomen soft, non-tender, nondistended. No hepato-splenomegaly , or palpable masses. No guarding. Bowel sounds present. GENITOURINARY: Without palpable bladder distension. Sloan catheter in place with scant amount of urine. Scrotal edema. MUSCULOSKELETAL: +1 bilateral upper and lower extremity edema. NEUROLOGICAL: Intubated, sedated on mechanical ventilation. . PSYCHIATRIC: No obvious anxiety/depression. no apparent hallucinations or other psychotic thought process. . (Mahi Luis) Diagnostic Tests Laboratory Laboratory Tests Test 03/12/17 04:00 03/12/17 22:15 03/13/17 02:39 03/13/17 04:20 White Blood Count 14.0 TH/MM3 (4.0-11.0) 13.6 TH/MM3 (4.0-11.0) 21.1 TH/MM3 (4.0-11.0) Red Blood Count 3.15 MIL/MM3 (4.50-5.90) 2.63 MIL/MM3 (4.50-5.90) 2.87 MIL/MM3 (4.50-5.90) Hemoglobin 9.1 GM/DL (13.0-17.0) 7.8 GM/DL (13.0-17.0) 8.4 GM/DL (13.0-17.0) Hematocrit 27.9 % (39.0-51.0) 23.9 % (39.0-51.0) 26.1 % (39.0-51.0) Mean Corpuscular Volume 88.8 FL (80.0-100.0) 90.7 FL (80.0-100.0) 90.9 FL (80.0-100.0) Mean Corpuscular Hemoglobin 28.8 PG (27.0-34.0) 29.5 PG (27.0-34.0) 29.1 PG (27.0-34.0) Mean Corpuscular Hemoglobin Concent 32.5 % (32.0-36.0) 32.6 % (32.0-36.0) 32.0 % (32.0-36.0) Red Cell Distribution Width 15.1 % (11.6-17.2) 15.3 % (11.6-17.2) 15.7 % (11.6-17.2) Platelet Count 286 TH/MM3 (150-450) 226 TH/MM3 (150-450) 316 TH/MM3 (150-450) Mean Platelet Volume 8.1 FL (7.0-11.0) 8.2 FL (7.0-11.0) 8.1 FL (7.0-11.0) Blood Urea Nitrogen 64 MG/DL (7-18) 66 MG/DL (7-18) Creatinine 1.52 MG/DL (0.60-1.30) 1.73 MG/DL (0.60-1.30) Random Glucose 82 MG/DL (74-106) 100 MG/DL (74-106) Calcium Level 8.6 MG/DL (8.5-10.1) 7.9 MG/DL (8.5-10.1) Phosphorus Level 2.3 MG/DL (2.5-4.9) 4.0 MG/DL (2.5-4.9) Magnesium Level 1.9 MG/DL (1.5-2.5) 1.7 MG/DL (1.5-2.5) Sodium Level 147 MEQ/L (136-145) 150 MEQ/L (136-145) Potassium Level 3.6 MEQ/L (3.5-5.1) 3.4 MEQ/L (3.5-5.1) Chloride Level 116 MEQ/L (98-107) 118 MEQ/L (98-107) Carbon Dioxide Level 23.3 MEQ/L (21.0-32.0) 19.0 MEQ/L (21.0-32.0) Anion Gap 8 MEQ/L (5-15) 13 MEQ/L (5-15) Estimat Glomerular Filtration Rate 47 ML/MIN (>89) 40 ML/MIN (>89) Blood Gas Puncture Site RT BRACHIAL Blood Gas Patient Temperature 98.6 Blood Gas HCO3 18 mmol/L (22-26) Blood Gas Base Excess -7.4 mmol/L (-2-2) Blood Gas Oxygen Saturation 90 % (90-100) Arterial Blood pH 7.28 (7.380-7.420) Arterial Blood Partial Pressure CO2 40 mmHg (38-42) Arterial Blood Partial Pressure O2 73 mmHg (61-120) Arterial Blood Oxygen Content 10.8 Vol % (12.0-20.0) Arterial Blood Carboxyhemoglobin 2.2 % (0-4) Arterial Blood Methemoglobin 1.7 % (0-2) Blood Gas Hemoglobin 8.5 G/DL (12.0-16.0) Oxygen Delivery Device VENTILATOR Blood Gas Ventilator Setting PRVC/AC Blood Gas Inspired Oxygen 50 % Neutrophils (%) (Auto) 85.5 % (16.0-70.0) Lymphocytes (%) (Auto) 6.7 % (9.0-44.0) Monocytes (%) (Auto) 6.0 % (0.0-8.0) Eosinophils (%) (Auto) 1.3 % (0.0-4.0) Basophils (%) (Auto) 0.5 % (0.0-2.0) Neutrophils # (Auto) 18.1 TH/MM3 (1.8-7.7) Lymphocytes # (Auto) 1.4 TH/MM3 (1.0-4.8) Monocytes # (Auto) 1.3 TH/MM3 (0-0.9) Eosinophils # (Auto) 0.3 TH/MM3 (0-0.4) Basophils # (Auto) 0.1 TH/MM3 (0-0.2) CBC Comment AUTO DIFF Differential Comment AUTO DIFF CONFIRMED Total Protein 5.3 GM/DL (6.4-8.2) Albumin 2.1 GM/DL (3.4-5.0) Alkaline Phosphatase 118 U/L (45-117) Aspartate Amino Transf (AST/SGOT) 42 U/L (15-37) Alanine Aminotransferase (ALT/SGPT) 23 U/L (12-78) Total Bilirubin 0.7 MG/DL (0.2-1.0) Random Vancomycin Level 23.7 COMMENT Test 03/14/17 04:45 03/14/17 11:58 White Blood Count 14.6 TH/MM3 (4.0-11.0) Red Blood Count 2.58 MIL/MM3 (4.50-5.90) Hemoglobin 7.6 GM/DL (13.0-17.0) 9.3 GM/DL (13.0-17.0) Hematocrit 23.3 % (39.0-51.0) 28.4 % (39.0-51.0) Mean Corpuscular Volume 90.3 FL (80.0-100.0) Mean Corpuscular Hemoglobin 29.3 PG (27.0-34.0) Mean Corpuscular Hemoglobin Concent 32.4 % (32.0-36.0) Red Cell Distribution Width 15.6 % (11.6-17.2) Platelet Count 282 TH/MM3 (150-450) Mean Platelet Volume 7.9 FL (7.0-11.0) Neutrophils (%) (Auto) 84.5 % (16.0-70.0) Lymphocytes (%) (Auto) 7.5 % (9.0-44.0) Monocytes (%) (Auto) 4.8 % (0.0-8.0) Eosinophils (%) (Auto) 2.3 % (0.0-4.0) Basophils (%) (Auto) 0.9 % (0.0-2.0) Neutrophils # (Auto) 12.4 TH/MM3 (1.8-7.7) Lymphocytes # (Auto) 1.1 TH/MM3 (1.0-4.8) Monocytes # (Auto) 0.7 TH/MM3 (0-0.9) Eosinophils # (Auto) 0.3 TH/MM3 (0-0.4) Basophils # (Auto) 0.1 TH/MM3 (0-0.2) CBC Comment AUTO DIFF Differential Total Cells Counted 100 Neutrophils % (Manual) 74 % (16-70) Band Neutrophils % 12 % (0-6) Lymphocytes % 4 % (9-44) Monocytes % 6 % (0-8) Neutrophils # (Manual) 13.1 TH/MM3 (1.8-7.7) Metamyelocytes 2 % (0-1) Myelocytes 2 % (0-0) Differential Comment FINAL DIFF MANUAL Platelet Estimate NORMAL (NORMAL) Platelet Morphology Comment NORMAL (NORMAL) Blood Urea Nitrogen 64 MG/DL (7-18) Creatinine 1.99 MG/DL (0.60-1.30) Random Glucose 126 MG/DL (74-106) Total Protein 5.1 GM/DL (6.4-8.2) Albumin 1.7 GM/DL (3.4-5.0) Calcium Level 8.0 MG/DL (8.5-10.1) Phosphorus Level 4.3 MG/DL (2.5-4.9) Magnesium Level 1.7 MG/DL (1.5-2.5) Alkaline Phosphatase 119 U/L (45-117) Aspartate Amino Transf (AST/SGOT) 43 U/L (15-37) Alanine Aminotransferase (ALT/SGPT) 19 U/L (12-78) Total Bilirubin 0.6 MG/DL (0.2-1.0) Sodium Level 150 MEQ/L (136-145) Potassium Level 3.6 MEQ/L (3.5-5.1) Chloride Level 118 MEQ/L (98-107) Carbon Dioxide Level 19.6 MEQ/L (21.0-32.0) Anion Gap 12 MEQ/L (5-15) Estimat Glomerular Filtration Rate 34 ML/MIN (>89) Random Vancomycin Level 28.5 COMMENT . (Mahi Luis) Result Diagram: 03/14/17 1158 03/14/17 0445 Microbiology Microbiology Date/Time Source Procedure Growth Status 03/13/17 09:20 Sputum Endotracheal Gram Stain - Final Resulted 03/13/17 09:20 Sputum Culture - Preliminary Pseudomonas Species Resulted Imaging Last 72 hours Impressions Chest X-Ray 03/13/17 0000 Signed Impressions: Service Date/Time: Monday, March 13, 2017 01:52 - CONCLUSION: 1. Bibasilar densities. 2. Endotracheal tube tip not well-seen but appears to be in good position. Armando Dodd MD . Procedures 01/25/2017- Retrievable IVC Filter placement 01/26/17-lumbar puncture with fluoroscopy-by interventional radiology 02/01/17- lumbar puncture fluoroscopy by interventional radiology 02/10/17- Endotracheal Intubation 02/10/17-left IJ central venous line placed 02/10/17-left femoral arterial line placed 02/11/17-Diagnostic and therapeutic bronchoscopy with bronchoalveolar lavage 02/11/17-Left upper extremity incision and debridement with excision of septic cephalic vein 02/13/17- Extubated 02/20/17- endotracheal intubation 02/20/17- Left subclavian central line placement 02/20/17-Right radial A-line placement 02/22/17-EGD/colonoscopy 02/28/17-right radial a line 02/28/17- Endotracheal intubation 02/28/17- right sided introducer catheter placement 02/28/17- Right IJ central line placement 02/28/17-Right chest tube placement 02/28/17- Embolization of inferior and superior sacral branches of right internal iliac artery 03/01/17- Hemodialysis access catheter 03/03/17-Right IJ central line placement 03/11/17-Extubated 03/13/17- Endotracheal intubation 03/14/2017: Tracheostomy . (Mahi Luis) Assessment and Plan Disease Oriented Problem List: (1) Acute respiratory failure (2) Septic shock (3) Aspiration pneumonia (4) Acute renal failure (5) CKD (chronic kidney disease) stage 3, GFR 30-59 ml/min (6) Cardiomyopathy (7) DVT of lower extremity, bilateral (8) Thrombophlebitis arm (9) Diabetes mellitus (10) Gout (11) HTN (hypertension) (12) Hyperlipidemia Symptom Scale: (1) Shortness of breath 0-10 Scale: Unable to quantify (2) Debility 0-10 Scale: Unable to quantify (3) Pain 0-10 Scale: Unable to quantify Pertinent Non-Medical Issues Psychosocial:Patient was born and raised in [place], [place]. Patient was once for 20 years, now and has 2 adult sons. 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 He recently resigned due to failing health. Spiritual: No judaism affiliation Legal: Per [place] statutes, in the absence of written advanced directives healthcare proxy decision making falls to the patient's 2 adult children. Patient's son (Davie) lives locally and wishes to participate in the role of the healthcare proxy decision maker. Palliative care has attempted to contact the patient's son, Arnel, who lives in [facility]; awaiting return phone call. Ethical issues impacting care: No known ethical issues impacting care at this time. . Important Contacts Son-Davie Kerr - Son-Arnel Kerr- -cell -home Sister-Deb Curry . Prognosis Mr Kerr is a 62 years old male with a past medical history of hypertension, asthma, diabetes, hyperlipidemia, chronic kidney disease and gout. Patient presented to the ED on 01/22/17 complaining of bilateral knee and right arm pain after a mechanical fall 4 or 5 days prior to coming to the ER. Clinical course complicated with increased weakness leading to numerous diagnostic work ups for possible transverse myelitis, DVTs, retroperitoneal hematoma, aspiration pneumonia, intubation x 4 times, septic and hemorrhagic shock requiring support with pressors and multiple pRBC, FFP transfusions as well as platelets and cryo , renal failure requiring hemodialysis and sacral wound Given ongoing comorbidities, and prolonged hospitalization, patient remains at risk for further complications, deterioration and decline leading to . Code Status: Full Code Plan * FULL CODE * Decision-making: Patient is currently sedated status post tracheostomy on mechanical ventilator; he is not capacitated to participate in establishing medical treatment goals. It is unclear if the patient will regain capacity in the future. Per [place] statutes, in the absence of written advanced directives healthcare proxy decision making would fall to the patient's 2 adult children (Davie Seals). HCP decision making has been discussed with Dvaie who indicates he would like to participate in this role. Awaiting return phone call from patient's son, Arnel. * GOALS REMAIN AGGRESSIVE - Family is verbalizing overall aggressive goals. However, they state the patient would not want to be kept on artificial life support for an extended period of time in a persistent vegetative state. The process of cardiopulmonary resuscitation was discussed at length-at this point in time the family desires that the patient remain and FULL CODE. Goals of care will be reassessed on a daily basis. * Palliative care met with patient's son (Davie), ex- (Francesca), and 2 siblings (Deb and Matias) and the family conference room. [facility] in the family meeting via conference call, but at this point no return phone call has been received. Also present, Aftab ARRINGTON. Patient remains critically ill and required reintubation for the fourth time on 03/13/2017 status post tracheostomy earlier this morning. An update was provided on the patient's clinical condition; questions regarding this patient' s complicated hospital course were answered to the best of my ability. * Symptom management - shortness of breath: Likely multifactorial. Patient has had aspiration pneumonia. He has required intubation 4 throughout this hospitalization most recently on 03/13/2017 status post tracheostomy this morning 03/14/17 * Symptom management - pain: Patient initially presented with complaints of pain in his right wrist and bilateral needs after mechanical fall. He has a history of recurrent falls. Patient is currently on a fentanyl drip. * Symptom management - debility: Progressive. Patient has had an acute decline over the past 4 months including progressively increased weakness and difficulty ambulating. He has now had a prolonged hospitalization with multiple setbacks/complications. He remains at high risk for further physical deconditioning and debilitation. * Palliative care will continue to follow this patient throughout his hospitalization to establish trust, assist with symptom management and clarification of medical treatment goals. . (Mahi Luis) Attestation To help prompt me to consider important information that might be impacting today's encounter and assessment, information from prior notes written by myself or my colleagues may have been "brought forward" into today's note. My signature on this note, however, is an attestation that I personally performed the exam, history, and/or decision-making noted today, and, unless otherwise indicated, the interactions with patient, family, and staff as well as the review of records all occurred today. I also attest that the listed assessment and stated plan reflect my best clinical judgment today based on the combination of historical information, prior notes, and today's exam/ interactions. When time spent is documented, it refers only to time spent today by the signer, or if indicated, combined time spent today by collaborating physician/nurse practitioner. . (Mahi Luis) Collaborating MD Comments Chart reviewed. Case discussed with palliative care ENVELOPE PRESS OPERATOR. Above note reviewed and I concur. . (Austen Knapp MD) Mahi Luis Mar 14, 2017 14:05 Austen Knapp MD Mar 15, 2017 17:25
--- NOTE | 2017-03-14 14:17 | HHI.NPPN ---
Subjective History of Present Illness 61-year-old with history of urinary stone Additional Remarks Patient had trach on vent Review of Systems General Constitutional: Fatigue Objective Data Data 03/14/17 03/15/17 19:00 07:00 Intake Total 665 ml Balance 665 ml Packed Cells 400 ml Blood Product IV Normal Saline Flush 265 ml Vital Signs Date Time Temp Pulse Resp B/P (MAP) Pulse Ox O2 Delivery O2 Flow Rate FiO2 03/14/17 13:24 99 50 03/14/17 12:00 100.4 112 16 92/50 (64) 99 03/14/17 12:00 112 03/14/17 12:00 50 03/14/17 10:45 99 100 03/14/17 10:00 108 03/14/17 09:43 100.3 110 18 98/55 98 03/14/17 08:00 114 03/14/17 08:00 98 40 03/14/17 08:00 100.6 114 19 105/58 (74) 99 03/14/17 08:00 50 03/14/17 07:00 99 Mechanical Ventilator 40 03/14/17 06:00 118 03/14/17 04:00 116 03/14/17 04:00 100.8 116 25 100/61 (74) 100 03/14/17 04:00 50 03/14/17 03:45 100 40 03/14/17 02:00 118 03/14/17 00:30 100 40 03/14/17 00:00 100.0 116 20 111/58 (75) 100 03/14/17 00:00 116 03/14/17 00:00 50 03/13/17 23:26 20 03/13/17 22:39 100 40 03/13/17 22:00 108 03/13/17 20:00 99.8 104 23 101/62 (75) 100 03/13/17 20:00 50 03/13/17 20:00 104 03/13/17 19:35 100 40 03/13/17 19:00 100 Mechanical Ventilator 40 03/13/17 18:00 104 03/13/17 16:00 50 03/13/17 16:00 106 03/13/17 16:00 100.0 106 21 94/62 (73) 100 -: 03/14/17 1158 03/14/17 0445 Physical Exam General Appearance: Pale Eyes Eye Exam: Pupils Equal Throat Throat Exam: Oral Mucosa [place] & Moist Neck Neck Exam: Neck Supple Pulmonary Resp Exam: Rhonchi, Decreased Bases, Diminished Breath Sounds Cardiology CV Exam: Normal Sinus Rhythm Gastrointestinal/Abdomen GI Exam: Non-Tender, Distended Extremeties Extremities Exam: Pitting Edema, Dependent Edema Neurologic Neuro Exam: Awake Assessment/Plan Problem List: (1) Acute renal failure ICD Codes: N17.9 - Acute kidney failure, unspecified Status: Acute Plan: Patient developed Hypotension,sepsis staph aureus respiratory failure and increase WBC. Had aspiration pneumonia, developed sepsis with ARF again creatinine declined slightly post hydration he also had retroperitoneal bleed Elevated intra abdominal pressures - improved now. 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 He was tried on sodium modeling and hemodialysis combined with ultrafiltration next HD tomorrow Cr 1.9 but UOP low and has edema He has generalized anasarca On ventilator s/p Trach Prognosis guarded (2) CKD (chronic kidney disease) stage 3, GFR 30-59 ml/min ICD Codes: N18.3 - Chronic kidney disease, stage 3 (moderate) Status: Chronic Plan: Ultrasound revealed chronic kidney disease there is no kidney stones (3) Diabetes ICD Codes: E11.9 - Type 2 diabetes mellitus without complications Plan: Continue to monitor (4) Distal end of ulna fracture, closed ICD Codes: S52.609A - Unspecified fracture of lower end of unspecified ulna, initial encounter for closed fracture Status: Acute Plan: Orthopedic is following Problem Qualifiers (1) Acute renal failure: Qualified Codes: N17.9 - Acute kidney failure, unspecified Laura Liao MD Mar 14, 2017 14:17
--- NOTE | 2017-03-14 16:53 | PD.PROCEDR ---
Procedure Note Procedure Procedure: Percutaneous tracheostomy with bronchoscopic guidance Operators: Dr. Devin Puente for percutaneous tracheostomy, Dr. West for bronchoscopy Informed consent obtained from family and documented on chart. Preoperative diagnosis: Acute resp failure Postoperative diagnosis: Same Anesthesia used: versed 10mg IV, fentanyl 200mcg IV, Rocuronium 50mg IV for meuromuscular blockade Procedure: After ensuring adequate sedation/analgesia neuromuscular blockade, patient was positioned appropriately. Dr. West proceeded with bronchoscopy and withdrawing ET tube. After sterile prepping and draping, using 1% lidocaine for local infiltration anesthesia, after making a 1.5cm midline verical skin incision just above sternal notch, introducer needle was used to enter trachea following which a guidewire was inserted into the trachea under bronchoscopic guidance. After using punch dilator, tracheostomy dilator assembly was mounted over the guidewire and advanced to dilate the trachea with dilator being visualized via bronchoscopic guidance entering the trachea during dilation without injuring the posterior tracheal wall. Following this dilator assembly was removed and 8 thai perc tracheostomy tube mounted over dilator was advanced over the guidewire into the trachea under direct visualization following which guidewire/dilator were removed. Bronchoscope was inserted at this point by Dr. West via newly inserted tracheostomy and appropriate placement was confirmed by visualizing tracheal rings following which bronchoscope was withdrawn and inner cannula was placed via tracheostomy. After inflating cuff patient was connected to mechanical ventilation via tracheostomy. 4 sutures and Trach tie used to secure tracheostomy to neck. Patient tolerated the procedure well with no immediate complications noted. Good hemostasis was achieved at the end of procedure. Postprocedure chest x- ray was ordered and will be reviewed when available. Devin Puente MD Mar 14, 2017 16:53
--- NOTE | 2017-03-14 17:06 | HHI.CCPN ---
Subjective Remarks/Hospital Course Date of admission: 01/22 Date of critical care medicine consult 02/10 due to acute hypoxemic respiratory failure requiring emergent intubation 62-year-old male with a past medical history of hypertension, hyperlipidemia, diabetes mellitus, gout, uric acid kidney stones, kidney disease of unknown stage who originally presented to [facility] emergency department on 01/22 after a fall in which he sustained a right distal ulna fracture. He had been experiencing a gradual primarily lower extremity weakness as well as upper extremity weakness that was progressive. Neurology consult was obtained. MRI revealed no acute stroke. He had multifocal white matter changes. Tiny lacunar infarcts of the brainstem. Lumbar MRI report states L4-L5 disc protrusion with cetnral canal stenosis. Dr. Blackwell evaluated and states no cord compression on MRI C/T spine and recommended nonoperative management. Symptoms were felt to be consistent with transverse myelitis and he underwent Solumedrol 250 mg IV q6 hours 01/27-02/02. He also was found to have occlusive thrombus in the bilateral posterior tibial veins. Heparin was being avoided because he had traumatic lumbar puncture on 01/26 and 02/01. IVC filter was placed 01/25. He was undergoing physical therapy, reportedly making some improvements with plan to eventually discharged home with his son (max assist standing, and bed to chair per PT note). Apparently he had some vomiting the evening of 02/09 and additional vomiting on 02/10. He had a fever 102.8 on 02/09. Last recorded bowel movement was 02/03. Tonight he had acute onset of severe hypoxemia and respiratory distress. [facility] called and he was brought emergently to [facility] where his sats were 64% on 100% nonrebreather with mean arterial pressure 44. He was emergently intubated, CVL and art line placed. He is in septic shock. SUBJ: 02/11: Patient remains intubated sedated, critically ill. FiO2 reduced to 80% after increasing PEEP to 12. In severe septic shock Levophed at 16 mcg/m, vasopressin at 0.04 international units. D/W vascular surgery Dr. Enciso. He performed bedside Left upper extremity incision and debridement and excision of septic cephalic vein. 02/12: Remains intubated sedated profoundly septic, in shock on vasopressin and 7 mcg/min Levophed. FiO2 has improved to 45%, WBC count remains elevated with 20 ,000 white count significant left shift. Slight improvement in creatinine 2.9 urine output 750 ml 24 hours. 2-D echo shows LV ejection fraction 20-25%, no vegetation reported. Blood cultures 4 staph aureus. Wound culture pending 02/13: Remains critically ill but stable to improving. WBC count is down to 16, creatinine improving to 2.36. Off all pressors. Urine output also improving. 1.5L in 24 hours 02/14: Extubated 02/13. Tolerating well. WBC now down to 12.8. Creat improving 2.3 to 2. UO 3.4L. remains off all pressors. Was started on Precedex yesterday night for agitation, currently on 0.5 g per KG per hour. Chest x-ray shows left more than right air space disease 02/20/17 Re consult: 62-year-old male who was originally admitted for lower extremity weakness and found to have what was thought to be possible transverse myelitis. His hospital course his included a healthcare associated pneumonia, septic thrombophlebitis, DVT. He was most recently in the hospital floor where he had significant nausea and vomiting and diarrhea. His C. difficile test was recently negative. However, he has experienced worsening acute on chronic renal failure, hypotension, tachycardia, and severe hypoxemia. He did have a bout of vomiting earlier today, and his hospitalist attending suspects that he may have aspirated. He arrives by rapid response to the ICU with a nonrebreather in place in severe respiratory distress with SPO2 of 85%. I emergently intubate the patient, see separate procedure note for details. At this point the patient was hypotensive and tachycardic. He does have a history of an EF of 20%, however clinically he appears in florid septic shock. I placed central line and arterial line started vasopressors and gentle IV fluid resuscitation with 1 L of LR. Patient today was empirically broadened to vancomycin and Zosyn from his oxacillin which was initially treating MSSA bacteremia. He is recultured. Critical-care medicine is consulted to evaluate and manage his worsening multiorgan system failure and decompensated septic shock 02/21: Patient remains intubated sedated. Becomes anxious tachypnea on sedation lightening. Chest x-ray shows mild left lower lobe infiltrate. WBC count is slightly improved today from 23.2 t0 21. C Diff negative. UO adequate, creat slightly worsening. 1.57 today 02/22: Remains intubated sedated tolerated CPAP yesterday, plan is for EGD/ Colonscopy. WBC count back to normal. UO adequate. Creat stable 02/23: Tolerating CPAP trials following commands. Will do a spontaneous breathing trials. Status post EGD colonoscopy yesterday -Gastritis, esophagitis. Diverticulosis and multiple polyps. Urine output adequate but creatinine increasing to 1.7 with patient requiring multiple straight catheterization. We'll reinsert Sloan. 02/24: Breathing comfortably 24 hours after extubation. Protects airway well. 02/25: Excoriate bottom, will place rectal FMS. Start pureed diet. 02/26: Afebrile. Complaining of nausea and vomiting this afternoon. Increased stool output. Continue potassium replacement today. 02/27: 10 PM overnight, acutely hypotensive. Received 3 units PRBCs. Antibiotic coverage broadened to piperacillin/tazobactam, cortisol and 1 dose of vancomycin. Oxacillin drip currently on hold. Symptomatically, patient continues to vague abdominal pain/nausea vomiting which is unchanged for the past several days. Lipase elevated yesterday. Lactic acid normal. Troponin normal. Urinary retention after removal of Sloan. Straight catheter 1300. Cc 02/28: New diagnosis large retroperitoneal hematoma. Received 10 PRBC, 14 FFP, 2 platelets, 1 cryo-, 6 g calcium chloride, 2 is magnesium sulfate and 4 mg Bumex. CTA abdomen revealed possible arterial bleeds iliac, lumbar. Patient is currently on norepinephrine and epinephrine drips and possible need right nephrostomy tube placement due to large hematoma compressing ureter. Intra-abdominal bladder pressures are currently 13 03/01: Afebrile. Received 25 g albumin and 1 unit PRBCs overnight. Intra- abdominal bladder pressures currently 19. Currently on 3 micrograms per minute of norepinephrine. Exyah-ro-cofe 1 out of 4 on 4 mics grams per kilogram per minute of cisatracurium. 03/02: Slightly hypothermic overnight. Hemoglobin appears to have stabilized. Troponin bump overnight likely secondary to demand ischemia from hypotension. Hemodynamically stable off all vasopressors. 03/03: Received 1 PRBCs overnight. 3 units currently. Off all vasopressors. Likely rebleeding. Stool is dark. 03/04: Remains unstable. Ventilator dependent. 03/05: afebrile. hgb stable. 03/06: bumex drip started overnight. good uop after bumex initiated. still grossly volume overloaded. Cr downtrending. more awake with transition to propofol. still too volume overloaded to tolerate extubation. hgb stable. 03/07: Afebrile. Tolerating tube feeds at goal with Nepro. Positive BM. On low-dose fentanyl and propofol drips. Potassium currently being replaced. 03/08: Eyes will open on ventilator. Afebrile. Tolerating tube feeding. Failed PSV trial yesterday due to apnea. 03/09: Following commands. Tmax 101. Tolerating tube feeding. One hour PSV trial yesterday. Currently tolerating well so far today 1.5 hours 03/10: Low-grade temperatures. Tolerating PSV trial 10 hours yesterday. Currently at 5/5 at 35%. We'll probably attempt extubation a.m. after hemodialysis. 03/11: Extubated currently in 4 L nasal cannula. Thick secretions thick clear with cough. Currently afebrile. Tolerating diet previously. Subjective 03/12: Sleepy this morning but arouses. Following commands. Refusing diet at the present time. On 2 L nasal cannula. 03/13: Patient reintubated last night for worsening respiratory status. Currently sedated on mechanical ventilation. Became hypotensive following intubation and is on Levophed 20 mics per minute. 03/14: Sedated, orally intubated on mech vent at the time of my evaluation this AM, subsequently underwent perc trach placement. Remains on levophed for pressor support. Transfused 1 unit PRBCs today. Objective Vital Signs Date Time Temp Pulse Resp B/P (MAP) Pulse Ox O2 Delivery O2 Flow Rate FiO2 03/14/17 16:00 101 03/14/17 16:00 100.3 16 114/53 (73) 99 03/14/17 16:00 50 03/14/17 07:00 Mechanical Ventilator 03/12/17 20:35 4.00 Intake and Output 03/14/17 03/14/17 03/15/17 08:00 16:00 00:00 Intake Total 437.5 ml 665 ml Output Total 125 ml Balance 312.5 ml 665 ml Result Diagram: 03/14/17 1158 03/14/17 6615 Other Results Laboratory Tests Test 03/14/17 04:45 03/14/17 11:58 White Blood Count 14.6 TH/MM3 Red Blood Count 2.58 MIL/MM3 Hemoglobin 7.6 GM/DL 9.3 GM/DL Hematocrit 23.3 % 28.4 % Mean Corpuscular Volume 90.3 FL Mean Corpuscular Hemoglobin 29.3 PG Mean Corpuscular Hemoglobin Concent 32.4 % Red Cell Distribution Width 15.6 % Platelet Count 282 TH/MM3 Mean Platelet Volume 7.9 FL Neutrophils (%) (Auto) 84.5 % Lymphocytes (%) (Auto) 7.5 % Monocytes (%) (Auto) 4.8 % Eosinophils (%) (Auto) 2.3 % Basophils (%) (Auto) 0.9 % Neutrophils # (Auto) 12.4 TH/MM3 Lymphocytes # (Auto) 1.1 TH/MM3 Monocytes # (Auto) 0.7 TH/MM3 Eosinophils # (Auto) 0.3 TH/MM3 Basophils # (Auto) 0.1 TH/MM3 CBC Comment AUTO DIFF Differential Total Cells Counted 100 Neutrophils % (Manual) 74 % Band Neutrophils % 12 % Lymphocytes % 4 % Monocytes % 6 % Neutrophils # (Manual) 13.1 TH/MM3 Metamyelocytes 2 % Myelocytes 2 % Differential Comment FINAL DIFF MANUAL Platelet Estimate NORMAL Platelet Morphology Comment NORMAL Blood Urea Nitrogen 64 MG/DL Creatinine 1.99 MG/DL Random Glucose 126 MG/DL Total Protein 5.1 GM/DL Albumin 1.7 GM/DL Calcium Level 8.0 MG/DL Phosphorus Level 4.3 MG/DL Magnesium Level 1.7 MG/DL Alkaline Phosphatase 119 U/L Aspartate Amino Transf (AST/SGOT) 43 U/L Alanine Aminotransferase (ALT/SGPT) 19 U/L Total Bilirubin 0.6 MG/DL Sodium Level 150 MEQ/L Potassium Level 3.6 MEQ/L Chloride Level 118 MEQ/L Carbon Dioxide Level 19.6 MEQ/L Anion Gap 12 MEQ/L Estimat Glomerular Filtration Rate 34 ML/MIN Random Vancomycin Level 28.5 COMMENT Imaging Last 48 hours Impressions Chest X-Ray 03/14/17 0000 Signed Impressions: Service Date/Time: Tuesday, March 14, 2017 13:41 - CONCLUSION: 1. Tracheostomy in good position. 2. Left lower lung infiltrates and left pleural effusion. Candido Patton MD Chest X-Ray 03/13/17 0000 Signed Impressions: Service Date/Time: Monday, March 13, 2017 01:52 - CONCLUSION: 1. Bibasilar densities. 2. Endotracheal tube tip not well-seen but appears to be in good position. Armando Dodd MD Last Impressions Chest X-Ray 03/11/17 0600 Signed Impressions: Service Date/Time: Saturday, March 11, 2017 05:10 - CONCLUSION: 1. No significant change in the bibasilar densities. 2. Small left effusion. Benjamin Person MD Aortography 02/28/17 0000 Signed Impressions: Service Date/Time: Tuesday, February 28, 2017 08:01 - CONCLUSION: 1. Active hemorrhage from distal right lateral sacral and iliolumbar branches successfully coil and Gelfoam embolized, as above. Juan Bhakta MD Abdomen/Pelvis CT 02/28/17 0000 Signed Impressions: Service Date/Time: Tuesday, February 28, 2017 06:51 - CONCLUSION: 1. The right retroperitoneal hematoma has increased in size, as above. There are 2 serpiginous arterially enhancing structures visualized, one in the right psoas muscle and another extending into the hematoma at the right iliac fossa. These could represent sites of continued active bleeding. 2. Stable moderate size left and small right pleural effusion with associated compressive atelectasis. 3. Stable small volume of free fluid in the abdomen and pelvis. There is also anasarca. The findings concerning the retroperitoneal hematoma were discussed with Dr. Aguiar via telephone at approximately 7: 10 AM on 02/28/2017. Angelo Allen MD Chest CT 02/27/17 0000 Signed Impressions: Service Date/Time: Monday, February 27, 2017 18:12 - CONCLUSION: 1. Bilateral pleural effusions with bibasilar atelectasis, left greater than right. Tom Sanchez MD Abdomen X-Ray 02/26/17 0000 Signed Impressions: Service Date/Time: Sunday, February 26, 2017 14:52 - CONCLUSION: 1. Nonobstructive bowel gas pattern. Juan Bhakta MD Upper Extremity Ultrasound 02/10/17 0000 Signed Impressions: Service Date/Time: Friday, February 10, 2017 18:46 - CONCLUSION: Occlusive thrombus in the cephalic and basilic veins. Benjamin Person MD Lung Scan-V Nuclear Medicine 02/10/17 Signed Impressions: Service Date/Time: Friday, February 10, 2017 22:17 - CONCLUSION: Low probability pulmonary embolism. Candido Patton MD Head CT 02/10/17 0000 Signed Impressions: Service Date/Time: Friday, February 10, 2017 23:51 - CONCLUSION: Negative noncontrast CT brain. Candido Patton MD Wrist X-Ray 02/06/17 0000 Signed Impressions: Service Date/Time: Monday, February 06, 2017 12:50 - CONCLUSION: Minimally displaced distal radius and ulnar fractures. Armando Dodd MD Lumbar Puncture Fluoroscopy 02/01/17 0000 Signed Impressions: Service Date/Time: January 09:35 - CONCLUSION: Uncomplicated fluoroscopically guided lumbar puncture. CSF was clear. Nabeel Peralta MD Head Magnetic Resonance Angiography 01/27/17 Signed Impressions: Service Date/Time: Friday, January 27, 2017 10:33 - CONCLUSION: No intracranial vascular abnormality is identified. There is no aneurysm visualized. Angelo Allen MD IVC Filter Placement X-Ray 01/25/17 Signed Impressions: Service Date/Time: January 10:29 - CONCLUSION: Uncomplicated inferior vena cava filter placement as above. Yung Fowler MD Thoracic Spine MRI 01/24/17 0000 Signed Impressions: Service Date/Time: Tuesday, January 24, 2017 22:29 - CONCLUSION: 1. Mild degenerative spondylosis most prominently at T11-L1 with slight effacement of the anterior thecal sac and left lateral recess. No significant neural foraminal stenosis. 2. No acute fracture. Juan Bhakta MD Renal Ultrasound 01/23/17 0000 Signed Impressions: Service Date/Time: Monday, January 23, 2017 08:53 - CONCLUSION: 1. Evidence of chronic parenchymal disease of both kidneys. No obstructive uropathy or other acute abnormality demonstrated. 2. Trace ascites, nonspecific. Angelo Garrido MD Lumbar Spine MRI 01/23/17 0000 Signed Impressions: Service Date/Time: Monday, January 23, 2017 17:01 - CONCLUSION: 1. At L4-5 is a broad-based disc protrusion with severe central canal and lateral recess stenosis and flattening of the exiting right L4 nerve root. 2. L5-S1 there is a disc protrusion and moderate stenosis with flattening of the exiting L5 nerve roots bilaterally. 3. At L3-4 there is a moderate to severe central stenosis and lateral recess stenosis with mild foraminal stenosis. 4. No acute fracture or spondylolisthesis. Trace Holloway MD Lower Extremity Ultrasound 01/23/17 Signed Impressions: Service Date/Time: Monday, January 23, 2017 09:53 - CONCLUSION: Bilateral focal lower extremity DVT involving the posterior tibial veins. Angelo Garrido MD Cervical Spine MRI 01/23/17 Signed Impressions: Service Date/Time: Monday, January 23, 2017 17:01 - CONCLUSION: 1. Multilevel cervical spine degenerative changes as above. 2. Mild degrees of spinal stenosis at C3/C4-C6/C7. No cord compression or cord signal abnormality. 3. Age indeterminate left paracentral/foraminal disc protrusion at C6/C7. 4. Multilevel foraminal stenosis, most severe on the left at C6/C7. Please see individual levels above. 5. No fracture or subluxation of the cervical spine. Angelo Garrido MD Brain MRI 01/23/17 Signed Impressions: Service Date/Time: Monday, January 23, 2017 17:01 - CONCLUSION: 1. No acute stroke or other acute intracranial abnormality demonstrated. 2. Moderate severity chronic white matter changes, nonspecific but most likely related to chronic small vessel disease. 3. Few scattered tiny lacunar infarcts of the brainstem. 4. Given the findings are not entirely specific, clinical evaluation for possible multiple sclerosis recommended. Angelo Garrido MD Knee X-Ray 01/22/[id number] Signed Impressions: Service Date/Time: Sunday, January 22, 2017 21:17 - CONCLUSION: 1. Evidence of moderate to large joint effusion. 2. No acute fracture or malalignment. 3. Mild 3 compartment osteoarthritic change. Benjamin Person MD Hip and Pelvis X-Ray [id number]/22/[id number] Signed Impressions: Service Date/Time: Sunday, January 22, 2017 21:10 - CONCLUSION: 1. Mild to moderate degenerative change of both hips with no acute fracture or malalignment. There is flattening and remodeling of the right humeral head. Benjamin Person MD Objective Remarks GENERAL: 62-year-old male, resting in bed, orally intubated on mechanical ventilation HEENT: Normocephalic. Atraumatic. Pupils equal, round, reactive, conjugate by 3 mm bilaterally. NECK: Trachea is midline. Obese. No JVD or thyromegaly right IJ TLC, left IJ hemodialysis catheter clean dry and intact CHEST: Orally intubated on mechanical ventilation, air entry decreased bilaterally at bases, scattered rhonchi bilaterally, no wheezing CARDIOVASCULAR: tachy, RR. S1, S2. No S4 without murmur ABDOMEN distended. No rigidity. Umbilical hernia is reducible. : Positive scrotal edema MUSCULOSKELETAL: Pulses 2+. 1+ bilateral upper and lower extremity edema. Wound VAC on left upper extremity NEUROLOGICAL: Sedated, orally intubated on mechanical ventilation. Prior to intubation was moving all 4 extremities Procedures IVC filter placement 01/25/2017 LP 01/26/2017 Date of Insertion: Mar 03, 2017 Line: Central Venous Catheter Side: Right Location: Internal, Jugular A/P Problem List: (1) Septic shock ICD Code: A41.9 - Sepsis, unspecified organism; R65.21 - Severe sepsis with septic shock Status: Acute (2) Acute respiratory failure ICD Code: J96.00 - Acute respiratory failure, unspecified whether with hypoxia or hypercapnia Status: Acute (3) Thrombophlebitis arm ICD Code: I80.8 - Phlebitis and thrombophlebitis of other sites (4) Aspiration pneumonia ICD Code: J69.0 - Pneumonitis due to inhalation of food and vomit Status: Acute (5) Atelectasis of left lung ICD Code: J98.11 - Atelectasis Status: Acute (6) Quadriparesis ICD Code: G82.50 - Quadriplegia, unspecified Status: Acute (7) DVT (deep venous thrombosis) ICD Code: I82.409 - Acute embolism and thrombosis of unspecified deep veins of unspecified lower extremity (8) Altered mental status ICD Code: R41.82 - Altered mental status, unspecified Status: Acute (9) CKD (chronic kidney disease) stage 3, GFR 30-59 ml/min ICD Code: N18.3 - Chronic kidney disease, stage 3 (moderate) Status: Chronic (10) Acute renal failure ICD Code: N17.9 - Acute kidney failure, unspecified Status: Acute (11) Diabetes mellitus ICD Code: E11.9 - Type 2 diabetes mellitus without complications Status: Chronic (12) Distal end of ulna fracture, closed ICD Code: S52.609A - Unspecified fracture of lower end of unspecified ulna, initial encounter for closed fracture Status: Acute (13) Gout ICD Code: M10.9 - Gout, unspecified Status: Chronic Assessment and Plan NEURO/PSYCH: Acute metabolic encephalopathy- persistent Quadriparesis secondary to suspected transverse myelitis Recurrent falls Pain secondary to retroperitoneal hematoma. Suspected transverse myelitis. Received methylprednisolone 250 mg IV every 6 hours 01/27-02/02, started back on hydrocortisone 02/21/17, initially tapering to 50 mg IV every 8 hours starting received 1 dose at 2100 prior to becoming hypotensive. weaning hydrocortisone taper and stopped 03/09. Resumed hydrocortisone 50mg IV Q6hrly on 03/14 as patient became hypotensive following intubation on 03/13 requiring levophed. LP 01/26 and 02/01. CSF culture negative 01/26, 02/01 Oligoclonal bands negative. CSF/serum IgG index is not elevated. VDRL nonreactive. Cryptococcal antigen negative. Brain MRI 01/23 no acute stroke. Few scattered lacunar infarcts of the brainstem. Moderate chronic white matter changes. MRI cervical/thoracic spine- mild spinal stenosis C3/C4 to C6/C7. No cord compression. RPR negative Neurology has been following, Dr. Crenshaw. Repeat CT brain 02/10 - negative Started on fentanyl and Versed drips following intubation on 03/13 for analgesia /sedation. Continue PT/OT RESP: Acute hypoxemic respiratory failure Healthcare associated pneumonia/Aspiration Pneumonia Right-sided chest tube placed for pleural effusion. continue mechanical ventilation, vent bundle, Albuterol/ipratropium aerosols every 6 hours with albuterol aerosols every 2 hours prn VQ scan 02/10 low probability for PE. CT chest 02/10 - left lower lobe collapse and consolidation. CT chest 02/27 revealed right greater than left pleural effusions. Extubated 02/23. Intubated 02/28. Extubated 03/11, Reintubated on 03/13. Right-sided chest tube placement 02/28 visiting housekeeper, removed 03/05. Failed attempt to wean successfully due to volume overload and multiple organ failure. underwent perc tracheostomy 03/14. CV: Severe sepsis - resolved. Systolic heart failure likely chronic with ejection fraction 20-25% Hyperlipidemia History of hypertension Mild TR Sinus tachycardia Elevated troponin likely type II demand ischemia Restarted on Levophed on 03/09 for following intubation, currently on 10 mics per minute. Started hydrocortisone stress dose on 03/14 (as patient has been on steroids and was just tapered off on 03/09.) Holding beta yani and amlodipine in light of hypotension. atorvastatin 10 mg by mouth daily for dyslipidemia. Troponin 0.[address]-T changes. 2-D echocardiogram 01/11 revealed EF 20-25%. Mild TR. Pulmonary arterial pressures were normal around 20 Troponin 6.55 on 03/02 and trending downward. Likely will need stress test of heart once stable. Cannot anticoagulate due to retroperitoneal hematoma at the present time Currently on furosemide 40 mg IV twice a day per nephrology. GI: Large right retroperitoneal hematoma Erosive esophagitis Adematous/hyperplastic colon polyps Severe acute protein calorie malnutrition Nausea/vomiting - resolved. Diarrhea Gastritis Diverticulosis Internal and external hemorrhoids Hiatal hernia Elevated lipase 02/27 CT chest/abdomen and pelvis - 9.4 x 7.5 renal and 16 x 12 cm right psoas muscle hematoma. Fluid around liver and spleen. Right-sided nephrolithiasis CTA abdomen 02/28 - possible blushing around iliac/lumbar vessels Discussed with IR. s/p attempted embolization CT abdomen and pelvis 02/10 atrophic left kidney. Bilateral inguinal hernias fat- containing. Nonobstructing 12 mm right kidney stone repeat CT abd/pelvis did not show evidence of obstruction. patient clinically has been having diarrhea (c. diff negative 02/19). also with nausea/vomiting of unclear etiology. EGD/Colonoscopy-02/22/17 showed gastritis esophagitis, hiatal hernia, diverticulosis and multiple polyps in descending colon and sigmoid which were snared biopsied. Biopsy pending Dr. Lewis consulted for intervention if needed for elevated IAP. will continue to check as needed Previously on on tube feeds with Nepro, held for trach. Will consult GI for PEG. Lansoprazole for GI prophylaxis FEN/RENAL: Acute kidney injury in the setting of Chronic kidney disease stage 3-4 History of uric acid kidney stones with prior stent BPH Nonfunctioning left kidney Acute intravascular volume overload Hypernatremia Hypophosphatemia Sloan placed due to urinary retention and worsening creatinine. Monitor intake and output q1hr. Monitor electrolytes. RIOS/SPEP negative. 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 Recommended nephrostomy tube if obstruction Nephrology consulted, hemodialysis per nephrology. Due to acute illness holding tamsulosin 0.4 mg by mouth daily for BPH Free water 200 mL q4h for hypernatremia ICU electrolyte replacement protocol ID: Septic shock- resolved. Abscess and Suppurative thrombophlebitis left upper extremity MSSA bacteremia Klebsiella UTI ESBL positive Acute aspiration pneumonia/HCAP Broad-spectrum antibiotics with oxacillin 2 g IV every 4 hours till March 26 initially. This is been held in light of current change to regimen to fluconazole, ertapenem and vancomycin intermittently dosed per ID. Added sulfamethoxazole/ trimethoprim 4 mg/80 mg 1 tablet twice a day today 03/11 for sternotrophomonas in sputum per infectious disease Blood cultures 2, UA ESBL positive Klebsiella UTI Repeat blood cultures 2 and sputum 03/08 pending. Urine negative. ID on board. HEME: Acute blood loss anemia DVT, bilateral posterior tibial vein, IVC filter Septic thrombophlebitis with occlusive thrombus mid cephalic and basilic vein side Received 10 PRBC, 14 FFP, 2 platelets, 1 cryo-02/28 Past 24 hours received 3 units PRBCs Serial hemoglobins every 6 hours Recheck coags Ultrasound 01/23/17 - Bilateral lower extremity with occlusive posterior tibial vein DVTs. Heparin was initially started for DVT but was placed on hold due to LP with suspected traumatic tap. Currently holding full anticoagulation with enoxaparin 100 mg IV twice a day due to anemia as of 02/26 IVC filter was placed 01/25/17. Ultrasound LUE 02/10 occlusive thrombus mid cephalic vein, basilic vein.s. Transfuse 3 units PRBCs 02/27 Transfuse 2 units PRBCs 03/01. transfused 1 unit PRBCs on 03/14 ENDO: Diabetes mellitus Hypoglycemia History of prior adrenal insufficiency with shock Gout EGD colonoscopy completed 02/22. gastritis and esophagitis, colon polyps Started Hydrocortisone 100 mg every 8 hours 02/21/17 (Recent high dose steroids use now hypotensive, hypoglycemic), start steroid taper. Currently at 50 twice a day Accu-Cheks to maintain euglycemia Novulin R every 4 hours. Insulin detemir 5 units twice a day/hold in view. MSK: Right distal ulna fracture. Dr. Nathan with orthopedics has evaluated and recommended nonoperative management. Right wrist splint in place. PROPH: Lansoprazole 30 mg twice a day twice a day for stress ulcer prophylaxis. Has IVC filter. Therapeutic enoxaparin currently on hold for retroperitoneal hematoma ACCESS: right IJ CVL placed 03/03. A left IJ hemodialysis catheter placed 03/01. Left femoral A line placed 03/14 Patient remains critically ill with worsening respiratory failure requiring reintubation, hypotension requiring Levophed. Consulted palliative care to assist with deciding goals of therapy Critical care time 35 minutes excluding procedures Problem Qualifiers (1) Aspiration pneumonia: (2) DVT (deep venous thrombosis): Qualified Codes: I82.443 - Acute embolism and thrombosis of tibial vein, bilateral (3) Acute renal failure: Qualified Codes: N17.9 - Acute kidney failure, unspecified (4) Diabetes mellitus: (5) Gout: Devin Puente MD Mar 14, 2017 17:06
--- NOTE | 2017-03-14 17:11 | PD.PROCEDR ---
Procedure Note Procedure Procedure: left femoral Arterial catheter placement with US guidance Pre-op dx: hypotension, resp failure, sepsis, pneumonia Post op dx: same Anesthesia used: 1% lidocaine for local infiltration anesthesia Procedure: After sterlie prepping and draping, left femoral artery visualized using ultrasound and cannulated under direct visualization with introducer needle with bright pulsatile blood return. Guidewire passed into left femoral artery following which needle removed and then 12 cm 20 gauge arterial catheter passed into left femoral artery and connected to transducer tubing with good waveform being obtained on monitor. Catheter sutured in place after applying biopatch and bio-occlusive dressing applied to site. patient tolerated procedure well with no immediate complications noted. Devin Puente MD Mar 14, 2017 17:11
[2017-03-14] MEDS: fentaNYL DRIP 250 ML IV PRN (17:50)
[2017-03-14] MEDS: HYDROCORTISONE SOD SUCCINATE 100 MG VIAL IV PUSH SCH (18:26)
[2017-03-14] MEDS: ATORVASTATIN 10 MG TAB PO SCH (21:00)
[2017-03-14] MEDS: ERTAPENEM INJ 1,000 MG in SODIUM CHLORIDE 0.9% INJ 100 ML IV SCH (21:28)
[2017-03-15] VITALS (17 sets, daily range): BP systolic 103–126; BP diastolic 57–74; PULSE 80–112; RESP 16–18; TEMP 97.7–98.4; O2SAT 98–100
[2017-03-15] MEDS: INSULIN NovoLIN REGULAR SUPPLEMENTAL SCALE SQ SCH ×6 (01:08→20:00)
[2017-03-15] MEDS: HYDROCORTISONE SOD SUCCINATE 100 MG VIAL IV PUSH SCH ×5 (01:08→23:32)
[2017-03-15] MEDS: oxyCODONE HCL ORAL CONC 5 MG/0.25 ML SYRINGE PO SCH ×6 (01:12→21:39)
[2017-03-15 04:46] LABS: HEMATOCRIT 26.2 % (39.0-51.0); MEAN CELL VOLUME 89.2 FL (80.0-100.0); MEAN CORPUSCULAR HEMOGLOBIN 29.2 PG (27.0-34.0); MEAN CORPUSCULAR HGB CONC 32.8 % (32.0-36.0); PLATELET COUNT 280 TH/MM3 (150-450); RED BLOOD COUNT 2.94 MIL/MM3 (4.50-5.90); RED CELL DISTRIBUTION WIDTH 16.6 % (11.6-17.2); REVIEW FLAG FINAL; WHITE BLOOD COUNT 15.6 TH/MM3 (4.0-11.0)
[2017-03-15 05:13] LABS: BICARBONATE 15.9 MEQ/L (21.0-32.0)
[2017-03-15 05:14] LABS: POTASSIUM 3.8 MEQ/L (3.5-5.1)
[2017-03-15] MEDS: METOCLOPRAMIDE HCL 10 MG/2 ML VIAL IV PUSH SCH ×3 (05:45→21:39)
[2017-03-15] MEDS: CHLORHEXIDINE 0.12% (ORAL KIT) 15 ML CUP MT SCH ×3 (08:00→20:00)
[2017-03-15] MEDS: LANSOPRAZOLE SOLUTAB 30 MG TAB NG SCH ×2 (09:00→20:51)
[2017-03-15] MEDS: ATENOLOL 25 MG TAB PO SCH ×2 (09:00→20:52)
[2017-03-15] MEDS: SODIUM CHLORIDE 0.9% FLUSH 10 ML FLUSH IV FLUSH SCH ×3 (09:00→20:51)
[2017-03-15] MEDS: SULFAMETHOXAZOLE-TRIMETHOPRIM 400-80 MG TAB PO SCH ×2 (09:00→20:52)
[2017-03-15] MEDS: FUROSEMIDE 40 MG/4 ML VIAL IV PUSH SCH ×2 (09:00→17:33)
[2017-03-15] MEDS: LACTOBACILLUS ACIDOPHILUS TAB PO SCH ×3 (09:00→17:33)
[2017-03-15] MEDS: INSULIN DETEMIR 100 UNITS/ML VIAL SQ SCH ×2 (09:00→20:52)
[2017-03-15] MEDS: ALBUMIN 25% INJ 100 ML IV PRN ×2 (09:04→09:05)
[2017-03-15] MEDS: GENTAMICIN SULFATE (DIALYSIS USE ONLY) 20 MG/2 ML VIAL OTHER PRN (09:05)
--- NOTE | 2017-03-15 10:18 | HHI.GIFU ---
Subjective Remarks Reconsulted for PEG tube placement. S/P tracheostomy yesterday. Pt sedated on vent. HD in room, about to start- tx will take approximately 3 hours. Objective Vitals I&O Vital Signs Date Time Temp Pulse Resp B/P (MAP) Pulse Ox O2 Delivery O2 Flow Rate FiO2 03/15/17 08:39 100 50 03/15/17 06:00 88 03/15/17 04:00 97.7 88 18 126/60 (82) 99 03/15/17 04:00 112 03/15/17 04:00 50 03/15/17 03:52 100 50 03/15/17 02:00 94 03/15/17 00:00 97.8 91 18 120/57 (78) 98 03/15/17 00:00 91 03/15/17 00:00 50 03/14/17 23:52 100 Ventilator 03/14/17 23:47 100 50 03/14/17 22:00 101 03/14/17 21:10 99 50 03/14/17 20:00 97 03/14/17 20:00 98.2 97 19 118/56 (76) 99 03/14/17 20:00 50 03/14/17 19:00 99 Mechanical Ventilator 40 03/14/17 18:00 102 03/14/17 16:46 99 100 03/14/17 16:00 101 03/14/17 16:00 100.3 101 16 114/53 (73) 99 03/14/17 16:00 50 03/14/17 14:00 106 03/14/17 13:24 99 50 03/14/17 12:00 100.4 112 16 92/50 (64) 99 03/14/17 12:00 112 03/14/17 12:00 50 03/14/17 10:45 99 100 03/14/17 10:00 108 03/14/17 09:43 100.3 110 18 98/55 98 I/O 03/14/17 03/14/17 03/14/17 03/15/17 03/15/17 03/15/17 07:00 15:00 23:00 07:00 15:00 23:00 Intake Total 437.5 ml 665 ml 100 ml 313.5 ml 200 ml Output Total 125 ml 50 ml 200 ml Balance 312.5 ml 665 ml 50 ml 113.5 ml 200 ml IV Total 145.5 ml 100 ml 313.5 ml 200 ml Tube Feeding 172 ml Packed Cells 400 ml Blood Product IV Normal Saline Flush 265 ml Other 120 ml Output Urine Total 125 ml 50 ml 200 ml # Bowel Movements 1 1 0 Laboratory Laboratory Tests Test 03/14/17 11:58 03/15/17 04:19 Hemoglobin 9.3 8.6 Hematocrit 28.4 26.2 White Blood Count 15.6 Red Blood Count 2.94 Mean Corpuscular Volume 89.2 Mean Corpuscular Hemoglobin 29.2 Mean Corpuscular Hemoglobin Concent 32.8 Red Cell Distribution Width 16.6 Platelet Count 280 Mean Platelet Volume 8.1 Blood Urea Nitrogen 75 Creatinine 2.45 Random Glucose 188 Calcium Level 8.3 Sodium Level 151 Potassium Level 3.8 Chloride Level 118 Carbon Dioxide Level 15.9 Anion Gap 17 Estimat Glomerular Filtration Rate 27 Date/Time Source Procedure Growth Status 03/08/17 19:49 Blood Peripheral Aerobic Blood Culture - Final NO GROWTH IN 5 DAYS Complete 03/08/17 19:49 Blood Peripheral Anaerobic Blood Culture - Final NO GROWTH IN 5 DAYS Complete 02/01/17 09:55 Cerebral Spinal Fluid Lumbar Puncture Fungal Smear - Final NO FUNGAL ELEMENTS SEEN. Complete 02/01/17 09:55 Cerebral Spinal Fluid Lumbar Puncture Fungal Culture - Final NO GROWTH IN 4 WEEKS Complete 02/17/17 05:55 Stool Stool Stool Occult Blood (GREGORY) - Final HEMOCCULT POSITIVE Complete 03/13/17 09:20 Sputum Endotracheal Gram Stain - Final Resulted 03/13/17 09:20 Sputum Culture - Preliminary Pseudomonas Species Resulted 02/27/17 08:32 Urine Catheterized Urine Urine Culture - Final Klebsiella Pneumoniae Esbl Pos Complete 02/11/17 09:10 Abscess Arm Acid Fast Stain - Final NO ACID FAST BACILLI SEEN Resulted 02/11/17 09:10 Abscess Arm Mycobacterial Culture - Preliminary NO GROWTH IN 4 WEEKS Resulted Imaging Last Impressions Chest X-Ray 03/14/17 0000 Signed Impressions: Service Date/Time: Tuesday, March 14, 2017 13:41 - CONCLUSION: 1. Tracheostomy in good position. 2. Left lower lung infiltrates and left pleural effusion. Candido Patton MD Aortography 02/28/17 0000 Signed Impressions: Service Date/Time: Tuesday, February 28, 2017 08:01 - CONCLUSION: 1. Active hemorrhage from distal right lateral sacral and iliolumbar branches successfully coil and Gelfoam embolized, as above. Juan Bhakta MD Abdomen/Pelvis CT 02/28/17 0000 Signed Impressions: Service Date/Time: Tuesday, February 28, 2017 06:51 - CONCLUSION: 1. The right retroperitoneal hematoma has increased in size, as above. There are 2 serpiginous arterially enhancing structures visualized, one in the right psoas muscle and another extending into the hematoma at the right iliac fossa. These could represent sites of continued active bleeding. 2. Stable moderate size left and small right pleural effusion with associated compressive atelectasis. 3. Stable small volume of free fluid in the abdomen and pelvis. There is also anasarca. The findings concerning the retroperitoneal hematoma were discussed with Dr. Aguiar via telephone at approximately 7: 10 AM on 02/28/2017. Angelo Allen MD Chest CT 02/27/17 0000 Signed Impressions: Service Date/Time: Monday, February 27, 2017 18:12 - CONCLUSION: 1. Bilateral pleural effusions with bibasilar atelectasis, left greater than right. Tom Sanchez MD Abdomen X-Ray 02/26/17 0000 Signed Impressions: Service Date/Time: Sunday, February 26, 2017 14:52 - CONCLUSION: 1. Nonobstructive bowel gas pattern. Juan Bhakta MD Upper Extremity Ultrasound 02/10/17 0000 Signed Impressions: Service Date/Time: Friday, February 10, 2017 18:46 - CONCLUSION: Occlusive thrombus in the cephalic and basilic veins. Benjamin Person MD Lung Scan- Nuclear Medicine 02/10/17 0000 Signed Impressions: Service Date/Time: Friday, February 10, 2017 22:17 - CONCLUSION: Low probability pulmonary embolism. Candido Patton MD Head CT 02/10/17 0000 Signed Impressions: Service Date/Time: Friday, February 10, 2017 23:51 - CONCLUSION: Negative noncontrast CT brain. Candido Patton MD Wrist X-Ray 02/06/17 0000 Signed Impressions: Service Date/Time: Monday, February 06, 2017 12:50 - CONCLUSION: Minimally displaced distal radius and ulnar fractures. Armando Dodd MD Lumbar Puncture Fluoroscopy 02/01/17 Signed Impressions: Service Date/Time: January 09:35 - CONCLUSION: Uncomplicated fluoroscopically guided lumbar puncture. CSF was clear. Nabeel Peralta MD Head Magnetic Resonance Angiography 01/27/17 Signed Impressions: Service Date/Time: Friday, January 27, 2017 10:33 - CONCLUSION: No intracranial vascular abnormality is identified. There is no aneurysm visualized. Angelo Allen MD IVC Filter Placement X-Ray 01/25/17 Signed Impressions: Service Date/Time: January 10:29 - CONCLUSION: Uncomplicated inferior vena cava filter placement as above. Yung Fowler MD Thoracic Spine MRI 01/24/17 Signed Impressions: Service Date/Time: Tuesday, January 24, 2017 22:29 - CONCLUSION: 1. Mild degenerative spondylosis most prominently at T11-L1 with slight effacement of the anterior thecal sac and left lateral recess. No significant neural foraminal stenosis. 2. No acute fracture. Juan Bhakta MD Renal Ultrasound 01/23/17 Signed Impressions: Service Date/Time: Monday, January 23, 2017 08:53 - CONCLUSION: 1. Evidence of chronic parenchymal disease of both kidneys. No obstructive uropathy or other acute abnormality demonstrated. 2. Trace ascites, nonspecific. Angelo Garrido MD Lumbar Spine MRI 01/23/17 Signed Impressions: Service Date/Time: Monday, January 23, 2017 17:01 - CONCLUSION: 1. At L4-5 is a broad-based disc protrusion with severe central canal and lateral recess stenosis and flattening of the exiting right L4 nerve root. 2. L5-S1 there is a disc protrusion and moderate stenosis with flattening of the exiting L5 nerve roots bilaterally. 3. At L3-4 there is a moderate to severe central stenosis and lateral recess stenosis with mild foraminal stenosis. 4. No acute fracture or spondylolisthesis. Trace Holloway MD Lower Extremity Ultrasound 01/23/17 Signed Impressions: Service Date/Time: Monday, January 23, 2017 09:53 - CONCLUSION: Bilateral focal lower extremity DVT involving the posterior tibial veins. Angelo Garrido MD Cervical Spine MRI 01/23/17 0000 Signed Impressions: Service Date/Time: Monday, January 23, 2017 17:01 - CONCLUSION: 1. Multilevel cervical spine degenerative changes as above. 2. Mild degrees of spinal stenosis at C3/C4-C6/C7. No cord compression or cord signal abnormality. 3. Age indeterminate left paracentral/foraminal disc protrusion at C6/C7. 4. Multilevel foraminal stenosis, most severe on the left at C6/C7. Please see individual levels above. 5. No fracture or subluxation of the cervical spine. Angelo Garrido MD Brain MRI 01/23/17 0000 Signed Impressions: Service Date/Time: Monday, January 23, 2017 17:01 - CONCLUSION: 1. No acute stroke or other acute intracranial abnormality demonstrated. 2. Moderate severity chronic white matter changes, nonspecific but most likely related to chronic small vessel disease. 3. Few scattered tiny lacunar infarcts of the brainstem. 4. Given the findings are not entirely specific, clinical evaluation for possible multiple sclerosis recommended. Angelo Garrido MD Knee X-Ray [id number]/22/[id number] Signed Impressions: Service Date/Time: Sunday, January 22, 2017 21:17 - CONCLUSION: 1. Evidence of moderate to large joint effusion. 2. No acute fracture or malalignment. 3. Mild 3 compartment osteoarthritic change. Benjamin Person MD Hip and Pelvis X-Ray [id number]/22/[id number] Signed Impressions: Service Date/Time: Sunday, January 22, 2017 21:10 - CONCLUSION: 1. Mild to moderate degenerative change of both hips with no acute fracture or malalignment. There is flattening and remodeling of the right humeral head. Benjamin Person MD Physical Exam HEENT: Normocephalic; atraumatic; no jaundice. CHEST: Resp even/unlabored on vent to tracheostomy, course breath sounds CARDIAC: RRR ABDOMEN: Soft, obese, no hepatosplenomegaly; bowel sounds are present in all four quadrants. Small umbilical hernia, reducible EXTREMITIES: BUE edema. 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 Pt requiring prolonged ventilation. S/P tracheostomy. GI consulted for peg tube placement. Occupational Safety And Health Manager recommends Nepro at 55cc/hr. - Anemia, Hemoccult positive stools.S/P EGD/Colonoscopy (02/22/17)----> 1. Gastritis antrum-biopsy esophagitis distal esophagus-biopsy duodenum normal-biopsy 2. Retroflexed views revealed a hiatal hernia 1. Diverticulosis sigmoid, descending polyp hepatic flexure-two--6 mm sessile-cold snare polypectomy with complete removal another 5 mm-cold biopsy with complete removal polyp sessile descending colon-7 mm-cold snare polypectomy with removal sigmoid-6 mm -cold snare polypectomy with complete removal random biopsies from descending colon- 2. Retroflexed views revealed internal hemorrhoids 3. Retroflexed views revealed small internal hemorrhoids 4. Revealed external hemorrhoids. Pathology severe acute ulcerative esophagitis, spores suggestive of bowen at base of ulcer, negative for intestinal metaplasia, dysplasia, mucosal congestion, duodenal mucosa without significant histopathologic abnormality, adenomatous polyp, descending colon polyp fecal material, no viable tissue present, hyperplastic polyp, colonic mucosa without significant histopathologic abnormality. HH 8.6/26.2. - Abdominal pain. CT abdomen and pelvis without iv contrast (02/19/17)---> areas of calcification seen in the right renal collecting system, right renal pelvis, adn proximal ureter. these appear to layer and be dependent suggesting likely to represent smaller areas of milk of calcium or small stones. There is mild dilatation of th eright renal collecting system and right ureter. A definite obstructing stone at this time is not seen. A small amount of air within hte urinary bladder. This should be correlated with any recent catheterization. Mild bilateral pleural effusions with accompanying atelectasis or consolidation at the left base. the consolidation was present previously. Prominent degenerative change in the lumbar spine and at the hip joints bilaterally. Improved, although lightly sedated. EGD/Colonoscopy as above. IMPROVED. - Respiratory Failure. S/P tracheostomy. Vent per CCM. . S/P intubation, now on cpap. Possible extubation today. - DVT LE, bilateral. Lovenox on hold. - Transverse myelitis, per attending. Per ID - LUE Abscess. S/P I&D with excision of left cephalic vein segment. Wound vac. - BREEZY, improved. Per renal. - HTN, DM, per attending. PLAN: - Plan for egd with peg tube placement today - Obtain consents - NPO - Occupational Safety And Health Manager recommends Nepro at 55cc/hr - Supportive care - Further recommendations to follow based on clinical status - Patient seen and examined by and myself and this note is written on his behalf. Nena Driver Mar 15, 2017 10:18
--- NOTE | 2017-03-15 13:30 | HHI.CCPN ---
Subjective Remarks/Hospital Course Date of admission: 01/22 Date of critical care medicine consult 02/10 due to acute hypoxemic respiratory failure requiring emergent intubation 62-year-old male with a past medical history of hypertension, hyperlipidemia, diabetes mellitus, gout, uric acid kidney stones, kidney disease of unknown stage who originally presented to [facility] emergency department on 01/22 after a fall in which he sustained a right distal ulna fracture. He had been experiencing a gradual primarily lower extremity weakness as well as upper extremity weakness that was progressive. Neurology consult was obtained. MRI revealed no acute stroke. He had multifocal white matter changes. Tiny lacunar infarcts of the brainstem. Lumbar MRI report states L4-L5 disc protrusion with cetnral canal stenosis. Dr. Blackwell evaluated and states no cord compression on MRI C/T spine and recommended nonoperative management. Symptoms were felt to be consistent with transverse myelitis and he underwent Solumedrol 250 mg IV q6 hours 01/27-02/02. He also was found to have occlusive thrombus in the bilateral posterior tibial veins. Heparin was being avoided because he had traumatic lumbar puncture on 01/26 and 02/01. IVC filter was placed 01/25. He was undergoing physical therapy, reportedly making some improvements with plan to eventually discharged home with his son (max assist standing, and bed to chair per PT note). Apparently he had some vomiting the evening of 02/09 and additional vomiting on 02/10. He had a fever 102.8 on 02/09. Last recorded bowel movement was 02/03. Tonight he had acute onset of severe hypoxemia and respiratory distress. [facility] called and he was brought emergently to [facility] where his sats were 64% on 100% nonrebreather with mean arterial pressure 44. He was emergently intubated, CVL and art line placed. He is in septic shock. SUBJ: 02/11: Patient remains intubated sedated, critically ill. FiO2 reduced to 80% after increasing PEEP to 12. In severe septic shock Levophed at 16 mcg/m, vasopressin at 0.04 international units. D/W vascular surgery Dr. Enciso. He performed bedside Left upper extremity incision and debridement and excision of septic cephalic vein. 02/12: Remains intubated sedated profoundly septic, in shock on vasopressin and 7 mcg/min Levophed. FiO2 has improved to 45%, WBC count remains elevated with 20 ,000 white count significant left shift. Slight improvement in creatinine 2.9 urine output 750 ml 24 hours. 2-D echo shows LV ejection fraction 20-25%, no vegetation reported. Blood cultures 4 staph aureus. Wound culture pending 02/13: Remains critically ill but stable to improving. WBC count is down to 16, creatinine improving to 2.36. Off all pressors. Urine output also improving. 1.5L in 24 hours 02/14: Extubated 02/13. Tolerating well. WBC now down to 12.8. Creat improving 2.3 to 2. UO 3.4L. remains off all pressors. Was started on Precedex yesterday night for agitation, currently on 0.5 g per KG per hour. Chest x-ray shows left more than right air space disease 02/20/17 Re consult: 62-year-old male who was originally admitted for lower extremity weakness and found to have what was thought to be possible transverse myelitis. His hospital course his included a healthcare associated pneumonia, septic thrombophlebitis, DVT. He was most recently in the hospital floor where he had significant nausea and vomiting and diarrhea. His C. difficile test was recently negative. However, he has experienced worsening acute on chronic renal failure, hypotension, tachycardia, and severe hypoxemia. He did have a bout of vomiting earlier today, and his hospitalist attending suspects that he may have aspirated. He arrives by rapid response to the ICU with a nonrebreather in place in severe respiratory distress with SPO2 of 85%. I emergently intubate the patient, see separate procedure note for details. At this point the patient was hypotensive and tachycardic. He does have a history of an EF of 20%, however clinically he appears in florid septic shock. I placed central line and arterial line started vasopressors and gentle IV fluid resuscitation with 1 L of LR. Patient today was empirically broadened to vancomycin and Zosyn from his oxacillin which was initially treating MSSA bacteremia. He is recultured. Critical-care medicine is consulted to evaluate and manage his worsening multiorgan system failure and decompensated septic shock 02/21: Patient remains intubated sedated. Becomes anxious tachypnea on sedation lightening. Chest x-ray shows mild left lower lobe infiltrate. WBC count is slightly improved today from 23.2 t0 21. C Diff negative. UO adequate, creat slightly worsening. 1.57 today 02/22: Remains intubated sedated tolerated CPAP yesterday, plan is for EGD/ Colonscopy. WBC count back to normal. UO adequate. Creat stable 02/23: Tolerating CPAP trials following commands. Will do a spontaneous breathing trials. Status post EGD colonoscopy yesterday -Gastritis, esophagitis. Diverticulosis and multiple polyps. Urine output adequate but creatinine increasing to 1.7 with patient requiring multiple straight catheterization. We'll reinsert Sloan. 02/24: Breathing comfortably 24 hours after extubation. Protects airway well. 02/25: Excoriate bottom, will place rectal FMS. Start pureed diet. 02/26: Afebrile. Complaining of nausea and vomiting this afternoon. Increased stool output. Continue potassium replacement today. 02/27: 10 PM overnight, acutely hypotensive. Received 3 units PRBCs. Antibiotic coverage broadened to piperacillin/tazobactam, cortisol and 1 dose of vancomycin. Oxacillin drip currently on hold. Symptomatically, patient continues to vague abdominal pain/nausea vomiting which is unchanged for the past several days. Lipase elevated yesterday. Lactic acid normal. Troponin normal. Urinary retention after removal of Sloan. Straight catheter 1300. Cc 02/28: New diagnosis large retroperitoneal hematoma. Received 10 PRBC, 14 FFP, 2 platelets, 1 cryo-, 6 g calcium chloride, 2 is magnesium sulfate and 4 mg Bumex. CTA abdomen revealed possible arterial bleeds iliac, lumbar. Patient is currently on norepinephrine and epinephrine drips and possible need right nephrostomy tube placement due to large hematoma compressing ureter. Intra-abdominal bladder pressures are currently 13 03/01: Afebrile. Received 25 g albumin and 1 unit PRBCs overnight. Intra- abdominal bladder pressures currently 19. Currently on 3 micrograms per minute of norepinephrine. [id number] 1 out of 4 on 4 mics grams per kilogram per minute of cisatracurium. 03/02: Slightly hypothermic overnight. Hemoglobin appears to have stabilized. Troponin bump overnight likely secondary to demand ischemia from hypotension. Hemodynamically stable off all vasopressors. 03/03: Received 1 PRBCs overnight. 3 units currently. Off all vasopressors. Likely rebleeding. Stool is dark. 03/04: Remains unstable. Ventilator dependent. 03/05: afebrile. hgb stable. 03/06: bumex drip started overnight. good uop after bumex initiated. still grossly volume overloaded. Cr downtrending. more awake with transition to propofol. still too volume overloaded to tolerate extubation. hgb stable. 03/07: Afebrile. Tolerating tube feeds at goal with Nepro. Positive BM. On low-dose fentanyl and propofol drips. Potassium currently being replaced. 03/08: Eyes will open on ventilator. Afebrile. Tolerating tube feeding. Failed PSV trial yesterday due to apnea. 03/09: Following commands. Tmax 101. Tolerating tube feeding. One hour PSV trial yesterday. Currently tolerating well so far today 1.5 hours 03/10: Low-grade temperatures. Tolerating PSV trial 10 hours yesterday. Currently at 5/5 at 35%. We'll probably attempt extubation a.m. after hemodialysis. 03/11: Extubated currently in 4 L nasal cannula. Thick secretions thick clear with cough. Currently afebrile. Tolerating diet previously. Subjective 03/12: Sleepy this morning but arouses. Following commands. Refusing diet at the present time. On 2 L nasal cannula. 03/13: Patient reintubated last night for worsening respiratory status. Currently sedated on mechanical ventilation. Became hypotensive following intubation and is on Levophed 20 mics per minute. 03/14: Sedated, orally intubated on mech vent at the time of my evaluation this AM, subsequently underwent perc trach placement. Remains on levophed for pressor support. Transfused 1 unit PRBCs today. Persistent 03/15: Trach site clean, dry. CXR with bilateral basilar infiltrates. Objective Vital Signs Date Time Temp Pulse Resp B/P (MAP) Pulse Ox O2 Delivery O2 Flow Rate FiO2 03/15/17 11:34 98 50 03/15/17 08:00 98.0 86 16 111/63 (79) 03/15/17 07:00 Mechanical Ventilator 4.00 Intake and Output 03/15/17 03/15/17 03/16/17 08:00 16:00 00:00 Intake Total 313.5 ml 200 ml Output Total 200 ml 4000 ml Balance 113.5 ml -3800 ml Result Diagram: 03/15/17 0419 03/15/17 041 Imaging Last 48 hours Impressions Chest X-Ray 03/14/17 0000 Signed Impressions: Service Date/Time: Tuesday, March 14, 2017 13:41 - CONCLUSION: 1. Tracheostomy in good position. 2. Left lower lung infiltrates and left pleural effusion. Candido Patton MD Chest X-Ray 03/13/17 0000 Signed Impressions: Service Date/Time: Monday, March 13, 2017 01:52 - CONCLUSION: 1. Bibasilar densities. 2. Endotracheal tube tip not well-seen but appears to be in good position. Armando Dodd MD Last Impressions Chest X-Ray 03/11/17 0600 Signed Impressions: Service Date/Time: Saturday, March 11, 2017 05:10 - CONCLUSION: 1. No significant change in the bibasilar densities. 2. Small left effusion. Benjamin Person MD Aortography 02/28/17 0000 Signed Impressions: Service Date/Time: Tuesday, February 28, 2017 08:01 - CONCLUSION: 1. Active hemorrhage from distal right lateral sacral and iliolumbar branches successfully coil and Gelfoam embolized, as above. Juan Bhakta MD Abdomen/Pelvis CT 02/28/17 0000 Signed Impressions: Service Date/Time: Tuesday, February 28, 2017 06:51 - CONCLUSION: 1. The right retroperitoneal hematoma has increased in size, as above. There are 2 serpiginous arterially enhancing structures visualized, one in the right psoas muscle and another extending into the hematoma at the right iliac fossa. These could represent sites of continued active bleeding. 2. Stable moderate size left and small right pleural effusion with associated compressive atelectasis. 3. Stable small volume of free fluid in the abdomen and pelvis. There is also anasarca. The findings concerning the retroperitoneal hematoma were discussed with Dr. Aguiar via telephone at approximately 7: 10 AM on 02/28/2017. Angelo Allen MD Chest CT 02/27/17 0000 Signed Impressions: Service Date/Time: Monday, February 27, 2017 18:12 - CONCLUSION: 1. Bilateral pleural effusions with bibasilar atelectasis, left greater than right. Tom Sanchez MD Abdomen X-Ray 02/26/17 0000 Signed Impressions: Service Date/Time: Sunday, February 26, 2017 14:52 - CONCLUSION: 1. Nonobstructive bowel gas pattern. Juan Bhakta MD Upper Extremity Ultrasound 02/10/17 0000 Signed Impressions: Service Date/Time: Friday, February 10, 2017 18:46 - CONCLUSION: Occlusive thrombus in the cephalic and basilic veins. Benjamin Person MD Lung Scan-V Nuclear Medicine 02/10/17 0000 Signed Impressions: Service Date/Time: Friday, February 10, 2017 22:17 - CONCLUSION: Low probability pulmonary embolism. Candido Patton MD Head CT 02/10/17 0000 Signed Impressions: Service Date/Time: Friday, February 10, 2017 23:51 - CONCLUSION: Negative noncontrast CT brain. Candido Patton MD Wrist X-Ray 02/06/17 0000 Signed Impressions: Service Date/Time: Monday, February 06, 2017 12:50 - CONCLUSION: Minimally displaced distal radius and ulnar fractures. Armando Dodd MD Lumbar Puncture Fluoroscopy 02/01/17 0000 Signed Impressions: Service Date/Time: January 09:35 - CONCLUSION: Uncomplicated fluoroscopically guided lumbar puncture. CSF was clear. Nabeel Peralta MD Head Magnetic Resonance Angiography 01/27/17 0000 Signed Impressions: Service Date/Time: Friday, January 27, 2017 10:33 - CONCLUSION: No intracranial vascular abnormality is identified. There is no aneurysm visualized. Angelo Allen MD IVC Filter Placement X-Ray 01/25/17 0000 Signed Impressions: Service Date/Time: January 10:29 - CONCLUSION: Uncomplicated inferior vena cava filter placement as above. Yung Fowler MD Thoracic Spine MRI 01/24/17 0000 Signed Impressions: Service Date/Time: Tuesday, January 24, 2017 22:29 - CONCLUSION: 1. Mild degenerative spondylosis most prominently at T11-L1 with slight effacement of the anterior thecal sac and left lateral recess. No significant neural foraminal stenosis. 2. No acute fracture. Juan Bhakta MD Renal Ultrasound 01/23/17 0000 Signed Impressions: Service Date/Time: Monday, January 23, 2017 08:53 - CONCLUSION: 1. Evidence of chronic parenchymal disease of both kidneys. No obstructive uropathy or other acute abnormality demonstrated. 2. Trace ascites, nonspecific. Angelo Garrido MD Lumbar Spine MRI 01/23/17 Signed Impressions: Service Date/Time: Monday, January 23, 2017 17:01 - CONCLUSION: 1. At L4-5 is a broad-based disc protrusion with severe central canal and lateral recess stenosis and flattening of the exiting right L4 nerve root. 2. L5-S1 there is a disc protrusion and moderate stenosis with flattening of the exiting L5 nerve roots bilaterally. 3. At L3-4 there is a moderate to severe central stenosis and lateral recess stenosis with mild foraminal stenosis. 4. No acute fracture or spondylolisthesis. Trace Holloway MD Lower Extremity Ultrasound 01/23/17 Signed Impressions: Service Date/Time: Monday, January 23, 2017 09:53 - CONCLUSION: Bilateral focal lower extremity DVT involving the posterior tibial veins. Angelo Garrido MD Cervical Spine MRI 01/23/17 Signed Impressions: Service Date/Time: Monday, January 23, 2017 17:01 - CONCLUSION: 1. Multilevel cervical spine degenerative changes as above. 2. Mild degrees of spinal stenosis at C3/C4-C6/C7. No cord compression or cord signal abnormality. 3. Age indeterminate left paracentral/foraminal disc protrusion at C6/C7. 4. Multilevel foraminal stenosis, most severe on the left at C6/C7. Please see individual levels above. 5. No fracture or subluxation of the cervical spine. Angelo Garrido MD Brain MRI 01/23/17 Signed Impressions: Service Date/Time: Monday, January 23, 2017 17:01 - CONCLUSION: 1. No acute stroke or other acute intracranial abnormality demonstrated. 2. Moderate severity chronic white matter changes, nonspecific but most likely related to chronic small vessel disease. 3. Few scattered tiny lacunar infarcts of the brainstem. 4. Given the findings are not entirely specific, clinical evaluation for possible multiple sclerosis recommended. Angelo Garrido MD Knee X-Ray 01/22/[id number] Signed Impressions: Service Date/Time: Sunday, January 22, 2017 21:17 - CONCLUSION: 1. Evidence of moderate to large joint effusion. 2. No acute fracture or malalignment. 3. Mild 3 compartment osteoarthritic change. Benjamin Person MD Hip and Pelvis X-Ray [id number]/22/[id number] Signed Impressions: Service Date/Time: Sunday, January 22, 2017 21:10 - CONCLUSION: 1. Mild to moderate degenerative change of both hips with no acute fracture or malalignment. There is flattening and remodeling of the right humeral head. Benjamin Person MD Objective Remarks GENERAL: 62-year-old male, resting in bed, intubated tracheally, on mechanical ventilation HEENT: Normocephalic. Atraumatic. Pupils equal, round, reactive. NECK: Trachea is midline. Obese. Right IJ TLC, left IJ hemodialysis catheter clean dry and intact CHEST: Orally intubated on mechanical ventilation, air entry decreased bilaterally at bases, scattered rhonchi bilaterally, no wheezing CARDIOVASCULAR: tachy, RR. S1, S2. No S4 without murmur. No JVD. ABDOMEN distended. No rigidity. Umbilical hernia is reducible. : Positive scrotal edema MUSCULOSKELETAL: Pulses 2+. 1+ bilateral upper and lower extremity edema. Wound VAC on left upper extremity NEUROLOGICAL: Sedated, orally intubated on mechanical ventilation. Moves 4 limbs weakly. Procedures IVC filter placement 01/25/2017 LP 01/26/2017 Date of Insertion: Mar 03, 2017 Line: Central Venous Catheter Side: Right Location: Internal, Jugular A/P Problem List: (1) Septic shock ICD Code: A41.9 - Sepsis, unspecified organism; R65.21 - Severe sepsis with septic shock Status: Acute (2) Acute respiratory failure ICD Code: J96.00 - Acute respiratory failure, unspecified whether with hypoxia or hypercapnia Status: Acute (3) Thrombophlebitis arm ICD Code: I80.8 - Phlebitis and thrombophlebitis of other sites (4) Aspiration pneumonia ICD Code: J69.0 - Pneumonitis due to inhalation of food and vomit Status: Acute (5) Atelectasis of left lung ICD Code: J98.11 - Atelectasis Status: Acute (6) Quadriparesis ICD Code: G82.50 - Quadriplegia, unspecified Status: Acute (7) DVT (deep venous thrombosis) ICD Code: I82.409 - Acute embolism and thrombosis of unspecified deep veins of unspecified lower extremity (8) Altered mental status ICD Code: R41.82 - Altered mental status, unspecified Status: Acute (9) CKD (chronic kidney disease) stage 3, GFR 30-59 ml/min ICD Code: N18.3 - Chronic kidney disease, stage 3 (moderate) Status: Chronic (10) Acute renal failure ICD Code: N17.9 - Acute kidney failure, unspecified Status: Acute (11) Diabetes mellitus ICD Code: E11.9 - Type 2 diabetes mellitus without complications Status: Chronic (12) Distal end of ulna fracture, closed ICD Code: S52.609A - Unspecified fracture of lower end of unspecified ulna, initial encounter for closed fracture Status: Acute (13) Gout ICD Code: M10.9 - Gout, unspecified Status: Chronic Assessment and Plan NEURO/PSYCH: Acute metabolic encephalopathy- persistent Quadriparesis secondary to suspected transverse myelitis Recurrent falls Pain secondary to retroperitoneal hematoma. Suspected transverse myelitis. Received methylprednisolone 250 mg IV every 6 hours 01/27-02/02, started back on hydrocortisone 02/21/17, initially tapering to 50 mg IV every 8 hours starting received 1 dose at 2100 prior to becoming hypotensive. weaning hydrocortisone taper and stopped 03/09. Resumed hydrocortisone 50mg IV Q6hrly on 03/14 as patient became hypotensive following intubation on 03/13 requiring levophed. LP 01/26 and 02/01. CSF culture negative 01/26, 02/01 Oligoclonal bands negative. CSF/serum IgG index is not elevated. VDRL nonreactive. Cryptococcal antigen negative. Brain MRI 01/23 no acute stroke. Few scattered lacunar infarcts of the brainstem. Moderate chronic white matter changes. MRI cervical/thoracic spine- mild spinal stenosis C3/C4 to C6/C7. No cord compression. RPR negative Neurology has been following, Dr. Crenshaw. Repeat CT brain 02/10 - negative Started on fentanyl and Versed drips following intubation on 03/13 for analgesia /sedation. Continue PT/OT RESP: Acute hypoxemic respiratory failure Healthcare associated pneumonia/Aspiration Pneumonia Right-sided chest tube placed for pleural effusion. continue mechanical ventilation, vent bundle, Albuterol/ipratropium aerosols every 6 hours with albuterol aerosols every 2 hours prn VQ scan 02/10 low probability for PE. CT chest 02/10 - left lower lobe collapse and consolidation. CT chest 02/27 revealed right greater than left pleural effusions. Extubated 02/23. Intubated 02/28. Extubated 03/11, Reintubated on 03/13. 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 Failed attempt to wean successfully due to volume overload and multiple organ failure. underwent perc tracheostomy 03/14. CV: Severe sepsis - resolved. Systolic heart failure likely chronic with ejection fraction 20-25% Hyperlipidemia History of hypertension Mild TR Sinus tachycardia Elevated troponin likely type II demand ischemia Restarted on Levophed on 03/09 for following intubation, currently on 10 mics per minute. Started hydrocortisone stress dose on 03/14 (as patient has been on steroids and was just tapered off on 03/09.) Holding beta yani and amlodipine in light of hypotension. atorvastatin 10 mg by mouth daily for dyslipidemia. Troponin 0.[address]-T changes. 2-D echocardiogram 01/11 revealed EF 20-25%. Mild TR. Pulmonary arterial pressures were normal around 20 Troponin 6.55 on 03/02 and trending downward. Likely will need stress test of heart once stable. Cannot anticoagulate due to retroperitoneal hematoma at the present time Currently on furosemide 40 mg IV twice a day per nephrology. GI: Large right retroperitoneal hematoma Erosive esophagitis Adematous/hyperplastic colon polyps Severe acute protein calorie malnutrition Nausea/vomiting - resolved. Diarrhea Gastritis Diverticulosis Internal and external hemorrhoids Hiatal hernia Elevated lipase 02/27 CT chest/abdomen and pelvis - 9.4 x 7.5 renal and 16 x 12 cm right psoas muscle hematoma. Fluid around liver and spleen. Right-sided nephrolithiasis CTA abdomen 02/28 - possible blushing around iliac/lumbar vessels Discussed with IR. s/p attempted embolization CT abdomen and pelvis 02/10 atrophic left kidney. Bilateral inguinal hernias fat- containing. Nonobstructing 12 mm right kidney stone repeat CT abd/pelvis did not show evidence of obstruction. patient clinically has been having diarrhea (c. diff negative 02/19). also with nausea/vomiting of unclear etiology. EGD/Colonoscopy-02/22/17 showed gastritis esophagitis, hiatal hernia, diverticulosis and multiple polyps in descending colon and sigmoid which were snared biopsied. Biopsy pending Dr. Lewis consulted for intervention if needed for elevated IAP. will continue to check as needed Previously on on tube feeds with Nepro, held for trach. Will consult GI for PEG. Lansoprazole for GI prophylaxis FEN/RENAL: Acute kidney injury in the setting of Chronic kidney disease stage 3-4 History of uric acid kidney stones with prior stent BPH Nonfunctioning left kidney Acute intravascular volume overload Hypernatremia Hypophosphatemia Sloan placed due to urinary retention and worsening creatinine. Monitor intake and output q1hr. Monitor electrolytes. RIOS/SPEP negative. 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 Recommended nephrostomy tube if obstruction Nephrology consulted, hemodialysis per nephrology. Due to acute illness holding tamsulosin 0.4 mg by mouth daily for BPH Free water 200 mL q4h for hypernatremia ICU electrolyte replacement protocol ID: Septic shock- resolved. Abscess and Suppurative thrombophlebitis left upper extremity MSSA bacteremia Klebsiella UTI ESBL positive Acute aspiration pneumonia/HCAP Broad-spectrum antibiotics with oxacillin 2 g IV every 4 hours till March 26 initially. This is been held in light of current change to regimen to fluconazole, ertapenem and vancomycin intermittently dosed per ID. Added sulfamethoxazole/ trimethoprim 4 mg/80 mg 1 tablet twice a day today 03/11 for sternotrophomonas in sputum per infectious disease Blood cultures 2, UA ESBL positive Klebsiella UTI Sputum 03/14 - Pseudomonas Repeat blood cultures 2 and sputum 03/08 pending. Urine negative. ID on board. HEME: Acute blood loss anemia DVT, bilateral posterior tibial vein, IVC filter Septic thrombophlebitis with occlusive thrombus mid cephalic and basilic vein side Received 10 PRBC, 14 FFP, 2 platelets, 1 cryo-02/28 Past 24 hours received 3 units PRBCs Serial hemoglobins every 6 hours Recheck coags Ultrasound 01/23/17 - Bilateral lower extremity with occlusive posterior tibial vein DVTs. Heparin was initially started for DVT but was placed on hold due to LP with suspected traumatic tap. Currently holding full anticoagulation with enoxaparin 100 mg IV twice a day due to anemia as of 02/26 IVC filter was placed 01/25/17. Ultrasound LUE 02/10 occlusive thrombus mid cephalic vein, basilic vein.s. Transfuse 3 units PRBCs 02/27 Transfuse 2 units PRBCs 03/01. transfused 1 unit PRBCs on 03/14 ENDO: Diabetes mellitus Hypoglycemia History of prior adrenal insufficiency with shock Gout EGD colonoscopy completed 02/22. gastritis and esophagitis, colon polyps Started Hydrocortisone 100 mg every 8 hours 02/21/17 (Recent high dose steroids use now hypotensive, hypoglycemic), start steroid taper. Currently at 50 twice a day Accu-Cheks to maintain euglycemia Novulin R every 4 hours. Insulin detemir 5 units twice a day/hold in view. MSK: Right distal ulna fracture. Dr. Nathan with orthopedics has evaluated and recommended nonoperative management. Right wrist splint in place. PROPH: Lansoprazole 30 mg twice a day twice a day for stress ulcer prophylaxis. Has IVC filter. Therapeutic enoxaparin currently on hold for retroperitoneal hematoma ACCESS: right IJ CVL placed 03/03. A left IJ hemodialysis catheter placed 03/01. Left femoral A line placed 03/14 Overall impression: Patient remains critically ill with worsening respiratory failure requiring reintubation and hypotension requiring Levophed. Palliative care to assist with deciding goals of therapy. Critical care time 38 minutes excluding procedures Problem Qualifiers (1) Aspiration pneumonia: (2) DVT (deep venous thrombosis): Qualified Codes: I82.443 - Acute embolism and thrombosis of tibial vein, bilateral (3) Acute renal failure: Qualified Codes: N17.9 - Acute kidney failure, unspecified (4) Diabetes mellitus: (5) Gout: Nic West MD Mar 15, 2017 13:30
--- NOTE | 2017-03-15 14:31 | HHI.GIFU ---
Subjective Remarks Peg tube placed successfully. Procedure report dictated. No apparent complication. Objective Vitals I&O Vital Signs Date Time Temp Pulse Resp B/P (MAP) Pulse Ox O2 Delivery O2 Flow Rate FiO2 03/15/17 12:00 84 03/15/17 12:00 98.1 84 16 125/74 (91) 99 03/15/17 12:00 50 03/15/17 11:34 98 50 03/15/17 10:00 80 03/15/17 08:39 100 50 03/15/17 08:00 98.0 86 16 111/63 (79) 100 03/15/17 08:00 50 03/15/17 08:00 86 03/15/17 07:00 100 Mechanical Ventilator 4.00 50 03/15/17 06:00 88 03/15/17 04:00 97.7 88 18 126/60 (82) 99 03/15/17 04:00 112 03/15/17 04:00 50 03/15/17 03:52 100 50 03/15/17 02:00 94 03/15/17 00:00 97.8 91 18 120/57 (78) 98 03/15/17 00:00 91 03/15/17 00:00 50 03/14/17 23:52 100 Ventilator 03/14/17 23:47 100 50 03/14/17 22:00 101 03/14/17 21:10 99 50 03/14/17 20:00 97 03/14/17 20:00 98.2 97 19 118/56 (76) 99 03/14/17 20:00 50 03/14/17 19:00 99 Mechanical Ventilator 40 03/14/17 18:00 102 03/14/17 16:46 99 100 03/14/17 16:00 101 03/14/17 16:00 100.3 101 16 114/53 (73) 99 03/14/17 16:00 50 I/O 03/14/17 03/14/17 03/14/17 03/15/17 03/15/17 03/15/17 07:00 15:00 23:00 07:00 15:00 23:00 Intake Total 437.5 ml 665 ml 100 ml 313.5 ml 200 ml Output Total 125 ml 50 ml 200 ml 4000 ml Balance 312.5 ml 665 ml 50 ml 113.5 ml -3800 ml IV Total 145.5 ml 100 ml 313.5 ml 200 ml Tube Feeding 172 ml Packed Cells 400 ml Blood Product IV Normal Saline Flush 265 ml Other 120 ml Output Urine Total 125 ml 50 ml 200 ml Hemodialysis 4000 ml # Bowel Movements 1 1 0 Laboratory Laboratory Tests Test 03/15/17 04:19 White Blood Count 15.6 Red Blood Count 2.94 Hemoglobin 8.6 Hematocrit 26.2 Mean Corpuscular Volume 89.2 Mean Corpuscular Hemoglobin 29.2 Mean Corpuscular Hemoglobin Concent 32.8 Red Cell Distribution Width 16.6 Platelet Count 280 Mean Platelet Volume 8.1 Blood Urea Nitrogen 75 Creatinine 2.45 Random Glucose 188 Calcium Level 8.3 Sodium Level 151 Potassium Level 3.8 Chloride Level 118 Carbon Dioxide Level 15.9 Anion Gap 17 Estimat Glomerular Filtration Rate 27 Date/Time Source Procedure Growth Status 03/08/17 19:49 Blood Peripheral Aerobic Blood Culture - Final NO GROWTH IN 5 DAYS Complete 03/08/17 19:49 Blood Peripheral Anaerobic Blood Culture - Final NO GROWTH IN 5 DAYS Complete 02/01/17 09:55 Cerebral Spinal Fluid Lumbar Puncture Fungal Smear - Final NO FUNGAL ELEMENTS SEEN. Complete 02/01/17 09:55 Cerebral Spinal Fluid Lumbar Puncture Fungal Culture - Final NO GROWTH IN 4 WEEKS Complete 02/17/17 05:55 Stool Stool Stool Occult Blood (GREGORY) - Final HEMOCCULT POSITIVE Complete 03/13/17 09:20 Sputum Endotracheal Gram Stain - Final Resulted 03/13/17 09:20 Sputum Culture - Preliminary Pseudomonas Species Resulted 02/27/17 08:32 Urine Catheterized Urine Urine Culture - Final Klebsiella Pneumoniae Esbl Pos Complete 02/11/17 09:10 Abscess Arm Acid Fast Stain - Final NO ACID FAST BACILLI SEEN Resulted 02/11/17 09:10 Abscess Arm Mycobacterial Culture - Preliminary NO GROWTH IN 4 WEEKS Resulted Physical Exam HEENT: Normocephalic; atraumatic; no jaundice. CHEST: Resp even/unlabored on vent to tracheostomy, course breath sounds CARDIAC: RRR ABDOMEN: Soft, obese, no hepatosplenomegaly; bowel sounds are present in all four quadrants. Small umbilical hernia, reducible EXTREMITIES: BUE edema. 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 Pt requiring prolonged ventilation. S/P tracheostomy. GI consulted for peg tube placement. Frame Repairer recommends Nepro at 55cc/hr. - Anemia, Hemoccult positive stools.S/P EGD/Colonoscopy (02/22/17)----> 1. Gastritis antrum-biopsy esophagitis distal esophagus-biopsy duodenum normal-biopsy 2. Retroflexed views revealed a hiatal hernia 1. Diverticulosis sigmoid, descending polyp hepatic flexure-two--6 mm sessile-cold snare polypectomy with complete removal another 5 mm-cold biopsy with complete removal polyp sessile descending colon-7 mm-cold snare polypectomy with removal sigmoid-6 mm -cold snare polypectomy with complete removal random biopsies from descending colon- 2. Retroflexed views revealed internal hemorrhoids 3. Retroflexed views revealed small internal hemorrhoids 4. Revealed external hemorrhoids. Pathology severe acute ulcerative esophagitis, spores suggestive of bowen at base of ulcer, negative for intestinal metaplasia, dysplasia, mucosal congestion, duodenal mucosa without significant histopathologic abnormality, adenomatous polyp, descending colon polyp fecal material, no viable tissue present, hyperplastic polyp, colonic mucosa without significant histopathologic abnormality. HH 8.6/26.2. - Abdominal pain. CT abdomen and pelvis without iv contrast (02/19/17)---> areas of calcification seen in the right renal collecting system, right renal pelvis, adn proximal ureter. these appear to layer and be dependent suggesting likely to represent smaller areas of milk of calcium or small stones. There is mild dilatation of th eright renal collecting system and right ureter. A definite obstructing stone at this time is not seen. A small amount of air within hte urinary bladder. This should be correlated with any recent catheterization. Mild bilateral pleural effusions with accompanying atelectasis or consolidation at the left base. the consolidation was present previously. Prominent degenerative change in the lumbar spine and at the hip joints bilaterally. Improved, although lightly sedated. EGD/Colonoscopy as above. IMPROVED. - Respiratory Failure. S/P tracheostomy. Vent per CCM. . S/P intubation, now on cpap. Possible extubation today. - DVT LE, bilateral. Lovenox on hold. - Transverse myelitis, per attending. Per ID - LUE Abscess. S/P I&D with excision of left cephalic vein segment. Wound vac. - BREEZY, improved. Per renal. - HTN, DM, per attending. PLAN: - OK to use PEG tube for meds and flush with water today - OK to use PEG tube for tube feeds tomorrow if remains stable. - NPO - Frame Repairer recommends Nepro at 55cc/hr - Supportive care - Further recommendations to follow based on clinical status Suhail Thacker MD Mar 15, 2017 14:31
[2017-03-15] MEDS ORDERED: PROPOFOL 200 MG/20 ML AMP IV ONE (14:33)
[2017-03-15] MEDS ORDERED: MIDAZOLAM HCL 2 MG/2 ML VIAL IV ONE (14:33)
[2017-03-15] MEDS ORDERED: PHENYLEPH/NS 1000 MCG/10 ML SYR IV ONE (14:33)
[2017-03-15] MEDS: SODIUM CHLOR 0.9% 1000 ML INJ 1,000 ML IV SCH (14:55)
--- NOTE | 2017-03-15 14:59 | HHI.IDPN ---
Subjective Subjective Remarks Patient is a 62-year-old male, admitted to the hospital for evaluation of pain in his right wrist. He gave a history of falling about a week ago and apparently had immediate pain in the right wrist. He did not seek any medical attention initially because reportedly he was very busy. He eventually presented, and he was found to have a distal ulnar fracture on plain films. He also had some redness and swelling. Orthopedics saw the patient, and was being treated conservatively with the splint. During this hospitalization also he started complaining of generalized weakness but more so in his lower extremity than his upper extremity. He had swelling in both lower extremity which revealed evidence of DVT in the posterior tibial veins. Neurology had seen the patient and he underwent lumbar puncture which apparently was traumatic. Patient was therefore not given anticoagulation because of the traumatic LP, and he underwent placement of an IVC filter on January 25. Patient had another lumbar puncture on February 01. He was felt to have transverse myelitis, and he was given high-dose IV Solu-Medrol from January 27 to February 02. There was apparently some improvement in his weakness. The imaging studies done for his weakness showed some spinal stenosis, and neurosurgery was consult that and recommended that there was no surgical intervention to be done. Patient has been stabilizing, but last night apparently deteriorated, and he ended up getting intubated, and had significant hypotension requiring pressors. There was also an ultrasound done of his left upper extremity which showed DVT, and there was evidence of superior 2 thrombophlebitis. Vascular surgery was consult to it and he had IND on his left upper extremity. Patient has had some fevers since yesterday. 2 blood cultures were done yesterday and they're now reported as growing gram-positive cocci in [place] in clusters. He is currently sedated and intubated. He is on Levophed and vasopressin. A central line was placed as well as a femoral a line. He apparently had an IV in his left upper extremity and that was removed yesterday. Patient also has history of chronic kidney disease, and nephrology evaluated the patient. He was just being monitored for his renal insufficiency. Infectious disease consultation has been requested to evaluate the patient. Notes reviewed D/W RN Temps ok S/P trach yesterday S/P PEG today BP ok, not on pressors Had HD today, took out 4L Sputum with Pseudomonas Reintubated 03/12 Antibiotics I attest that I obtained, updated or reviewed the home and current medications. Antibiotics - Invanz Bactrim Vanco intermittent dosing Current Medications Medications (Trade) Dose Ordered Sig/Rosalia Route Start Time Stop Time Status Last Admin (NS Flush) 2 ml UNSCH PRN IV FLUSH 01/23/17 00:30 02/01/17 05:07 (NS Flush) 2 ml BID IV FLUSH 01/23/17 09:00 03/14/17 21:00 (Zofran Inj) 4 mg Q6H PRN IVP 01/23/17 00:30 02/26/17 17:23 (Narcan Inj) 0.4 mg UNSCH PRN IV 01/23/17 00:30 (Edna-Colace) 1 tab BID PO 01/23/17 09:00 Future Hold 02/24/17 20:31 (Dulcolax Supp) 10 mg DAILY PRN RECTAL 01/23/17 00:30 (Lipitor) 10 mg HS PO 01/24/17 21:00 Future hold 03/13/17 20:36 (Glucagon Inj) 1 mg UNSCH PRN OTHER 02/11/17 05:45 02/18/17 18:53 (Flomax) 0.4 mg Q12HR PO 02/17/17 15:00 Future Hold 02/26/17 08:49 (Lovenox Inj) 100 mg Q12H SQ 02/18/17 12:00 Future Hold 02/26/17 16:20 (Lactinex) 1 tab TID PO 02/19/17 13:00 03/14/17 08:18 (Apresoline Inj) 10 mg Q30M PRN IV PUSH 02/20/17 11:45 03/11/17 12:37 (D50w (Vial) Inj) 25 ml UNSCH PRN IV PUSH 02/20/17 12:45 Sodium Chloride 1,000 ml @ 20 mls/hr Q24H IV 02/22/17 13:00 03/14/17 13:52 Oxacillin Sodium 2 gm/Sodium Chloride 100 ml @ 200 mls/hr Q4H IV 02/23/17 12:00 Future Hold 02/27/17 04:25 (Questran Light Pkt) 4 gm Q12HR PO 02/25/17 21:00 Future Hold 02/27/17 10:32 (Aldactone) 25 mg DAILY PO 02/27/17 09:00 Future Hold (Reglan Inj) 5 mg Q8HR IV PUSH 02/26/17 22:00 03/15/17 05:45 (Peridex 0.12% Liq) 15 ml BID@08,20 MT 02/28/17 08:00 03/14/17 20:00 (Albuterol Neb) 2.5 mg Q2HR NEB PRN NEB 02/28/17 07:45 (NovoLIN R SUPPLEMENTAL SCALE) 1 Q4HR SQ 02/28/17 08:00 03/15/17 04:00 Sodium Chloride 1,000 ml @ 0 mls/hr Q0M PRN OTHER 03/01/17 11:19 03/02/17 13:00 Sodium Chloride 1,000 ml @ 200 mls/hr Q5H PRN IV 03/01/17 11:19 Sodium Chloride 1,000 ml @ 0 mls/hr Q0M PRN OTHER 03/01/17 11:19 (Mannitol Inj) 12.5 gm UNSCH PRN IV 03/01/17 11:30 03/08/17 17:27 Albumin Human 100 ml @ 60 mls/hr UNSCH PRN IV 03/01/17 11:30 03/15/17 09:05 (NS Flush) 5 ml UNSCH PRN IV FLUSH 03/01/17 11:30 (Heparin Inj) UNSCH PRN .XX 03/01/17 11:30 03/02/17 13:00 (Gentamicin (Dialysis) Inj) 20 mg UNSCH PRN OTHER 03/01/17 11:30 03/15/17 09:05 (Tylenol) 650 mg UNSCH PRN PO 03/01/17 11:30 (Nitrostat Sl) 0.4 mg UNSCH PRN SL 03/01/17 11:30 (Gelfoam 12 Mm/7 Mm Top) 1 foam UNSCH PRN TOP 03/01/17 11:30 (NS Flush) UNSCH PRN IV FLUSH 03/01/17 13:00 (Heparin Inj) UNSCH PRN IV FLUSH 03/01/17 13:00 Ertapenem 1000 mg/ Sodium Chloride 100 ml @ 200 mls/hr Q24H IV 03/01/17 20:00 03/15/17 23:00 03/14/17 21:28 (NS Flush) DAILY IV FLUSH 03/04/17 09:00 03/14/17 09:23 (NS Flush) UNSCH PRN IV FLUSH 03/03/17 18:45 (Roxicodone Intensol Liq) 10 mg Q4H PO 03/05/17 14:00 03/14/17 05:23 (Levemir Inj) 5 units BID SQ 03/07/17 21:00 03/13/17 20:36 (Prevacid Odt) 30 mg BID NG 03/07/17 21:00 03/14/17 08:18 (Tylenol 650 Mg/ 20 ml Liq) 650 mg Q6H PRN PO 03/09/17 10:15 03/14/17 05:24 (Lasix Inj) 40 mg BID@09,18 IV PUSH 03/10/17 18:00 03/14/17 17:21 (Bactrim 400-80 Mg) 1 tab Q12HR PO 03/11/17 12:00 03/18/17 11:59 03/14/17 08:18 (Trandate Inj) 20 mg Q4H PRN IV 03/12/17 04:30 03/13/17 02:29 (Tenormin) 25 mg Q12HR PO 03/12/17 10:00 Phenylephrine HCl 160 mg/Dextrose 500 ml @ 7.5 mls/hr TITRATE PRN IV 03/12/17 10:45 (Brethine Inj) 1 mg UNSCH PRN SQ 03/12/17 10:45 Midazolam HCl 100 ml @ 2 mls/hr TITRATE PRN IV 03/13/17 01:00 03/14/17 09:21 Fentanyl Citrate 250 ml @ 5 mls/hr TITRATE PRN IV 03/13/17 01:00 03/14/17 17:50 Norepinephrine Bitartrate 16 mg/ Sodium Chloride 250 ml @ 1.87 mls/hr TITRATE PRN IV 03/13/17 10:45 03/13/17 12:04 (SoluCORTEF INJ) 50 mg Q6HR IV PUSH 03/14/17 18:00 03/15/17 05:45 Lines LIJ vascat - 03/12 Past Medical History Reviewed Allergies: Coded Allergies: levofloxacin (Verified Allergy, Severe, 01/22/17) Objective . Vital Signs Date Time Temp Pulse Resp B/P (MAP) Pulse Ox O2 Delivery O2 Flow Rate FiO2 03/15/17 12:00 84 03/15/17 12:00 98.1 84 16 125/74 (91) 99 03/15/17 12:00 50 03/15/17 11:34 98 50 03/15/17 10:00 80 03/15/17 08:39 100 50 03/15/17 08:00 98.0 86 16 111/63 (79) 100 03/15/17 08:00 50 03/15/17 08:00 86 03/15/17 07:00 100 Mechanical Ventilator 4.00 50 03/15/17 06:00 88 03/15/17 04:00 97.7 88 18 126/60 (82) 99 03/15/17 04:00 112 03/15/17 04:00 50 03/15/17 03:52 100 50 03/15/17 02:00 94 03/15/17 00:00 97.8 91 18 120/57 (78) 98 03/15/17 00:00 91 03/15/17 00:00 50 03/14/17 23:52 100 Ventilator 03/14/17 23:47 100 50 03/14/17 22:00 101 03/14/17 21:10 99 50 03/14/17 20:00 97 03/14/17 20:00 98.2 97 19 118/56 (76) 99 03/14/17 20:00 50 03/14/17 19:00 99 Mechanical Ventilator 40 03/14/17 18:00 102 03/14/17 16:46 99 100 03/14/17 16:00 101 03/14/17 16:00 100.3 101 16 114/53 (73) 99 03/14/17 16:00 50 03/15/17 03/15/17 03/16/17 15:00 23:00 07:00 Intake Total 200 ml Output Total 4000 ml Balance -3800 ml IV Total 200 ml Hemodialysis 4000 ml . Laboratory Tests Test 03/14/17 04:45 03/14/17 11:58 03/15/17 04:19 White Blood Count 14.6 TH/MM3 15.6 TH/MM3 Red Blood Count 2.58 MIL/MM3 2.94 MIL/MM3 Hemoglobin 7.6 GM/DL 9.3 GM/DL 8.6 GM/DL Hematocrit 23.3 % 28.4 % 26.2 % Mean Corpuscular Volume 90.3 FL 89.2 FL Mean Corpuscular Hemoglobin 29.3 PG 29.2 PG Mean Corpuscular Hemoglobin Concent 32.4 % 32.8 % Red Cell Distribution Width 15.6 % 16.6 % Platelet Count 282 TH/MM3 280 TH/MM3 Mean Platelet Volume 7.9 FL 8.1 FL Neutrophils (%) (Auto) 84.5 % Lymphocytes (%) (Auto) 7.5 % Monocytes (%) (Auto) 4.8 % Eosinophils (%) (Auto) 2.3 % Basophils (%) (Auto) 0.9 % Neutrophils # (Auto) 12.4 TH/MM3 Lymphocytes # (Auto) 1.1 TH/MM3 Monocytes # (Auto) 0.7 TH/MM3 Eosinophils # (Auto) 0.3 TH/MM3 Basophils # (Auto) 0.1 TH/MM3 CBC Comment AUTO DIFF Differential Total Cells Counted 100 Neutrophils % (Manual) 74 % Band Neutrophils % 12 % Lymphocytes % 4 % Monocytes % 6 % Neutrophils # (Manual) 13.1 TH/MM3 Metamyelocytes 2 % Myelocytes 2 % Differential Comment FINAL DIFF MANUAL Platelet Estimate NORMAL Platelet Morphology Comment NORMAL Laboratory Tests Test 03/14/17 04:45 03/15/17 04:19 Blood Urea Nitrogen 64 MG/DL 75 MG/DL Creatinine 1.99 MG/DL 2.45 MG/DL Random Glucose 126 MG/DL 188 MG/DL Total Protein 5.1 GM/DL Albumin 1.7 GM/DL Calcium Level 8.0 MG/DL 8.3 MG/DL Phosphorus Level 4.3 MG/DL Magnesium Level 1.7 MG/DL Alkaline Phosphatase 119 U/L Aspartate Amino Transf (AST/SGOT) 43 U/L Alanine Aminotransferase (ALT/SGPT) 19 U/L Total Bilirubin 0.6 MG/DL Sodium Level 150 MEQ/L 151 MEQ/L Potassium Level 3.6 MEQ/L 3.8 MEQ/L Chloride Level 118 MEQ/L 118 MEQ/L Carbon Dioxide Level 19.6 MEQ/L 15.9 MEQ/L Anion Gap 12 MEQ/L 17 MEQ/L Estimat Glomerular Filtration Rate 34 ML/MIN 27 ML/MIN Microbiology Date/Time Source Procedure Growth Status 03/13/17 09:20 Sputum Endotracheal Gram Stain - Final Resulted 03/13/17 09:20 Sputum Culture - Preliminary Pseudomonas Species Resulted Imaging L Chest X-Ray 03/14/17 0000 Signed Impressions: Service Date/Time: Tuesday, March 14, 2017 13:41 - CONCLUSION: 1. Tracheostomy in good position. 2. Left lower lung infiltrates and left pleural effusion. Candido Patton MD Aortography 02/28/17 0000 Signed Impressions: Service Date/Time: Tuesday, February 28, 2017 08:01 - CONCLUSION: 1. Active hemorrhage from distal right lateral sacral and iliolumbar branches successfully coil and Gelfoam embolized, as above. Juan Bhakta MD Abdomen/Pelvis CT 02/28/17 0000 Signed Impressions: Service Date/Time: Tuesday, February 28, 2017 06:51 - CONCLUSION: 1. The right retroperitoneal hematoma has increased in size, as above. There are 2 serpiginous arterially enhancing structures visualized, one in the right psoas muscle and another extending into the hematoma at the right iliac fossa. These could represent sites of continued active bleeding. 2. Stable moderate size left and small right pleural effusion with associated compressive atelectasis. 3. Stable small volume of free fluid in the abdomen and pelvis. There is also anasarca. The findings concerning the retroperitoneal hematoma were discussed with Dr. Aguiar via telephone at approximately 7: 10 AM on 02/28/2017. Angelo Allen MD Chest CT 02/27/17 0000 Signed Impressions: Service Date/Time: Monday, February 27, 2017 18:12 - CONCLUSION: 1. Bilateral pleural effusions with bibasilar atelectasis, left greater than right. Tom Sanchez MD Abdomen X-Ray 02/26/17 0000 Signed Impressions: Service Date/Time: Sunday, February 26, 2017 14:52 - CONCLUSION: 1. Nonobstructive bowel gas pattern. Juan Bhakta MD Upper Extremity Ultrasound 02/10/17 0000 Signed Impressions: Service Date/Time: Friday, February 10, 2017 18:46 - CONCLUSION: Occlusive thrombus in the cephalic and basilic veins. Benjamin Person MD Lung Scan- Nuclear Medicine 9/23/17 0000 Signed Impressions: Service Date/Time: Friday, February 10, 2017 22:17 - CONCLUSION: Low probability pulmonary embolism. Candido Patton MD Head CT 02/10/17 Signed Impressions: Service Date/Time: Friday, February 10, 2017 23:51 - CONCLUSION: Negative noncontrast CT brain. Candido Patton MD Wrist X-Ray 02/06/17 Signed Impressions: Service Date/Time: Monday, February 06, 2017 12:50 - CONCLUSION: Minimally displaced distal radius and ulnar fractures. Armando Dodd MD Lumbar Puncture Fluoroscopy 02/01/17 Signed Impressions: Service Date/Time: January 09:35 - CONCLUSION: Uncomplicated fluoroscopically guided lumbar puncture. CSF was clear. Nabeel Peralta MD Head Magnetic Resonance Angiography 01/27/17 Signed Impressions: Service Date/Time: Friday, January 27, 2017 10:33 - CONCLUSION: No intracranial vascular abnormality is identified. There is no aneurysm visualized. Angelo Allen MD IVC Filter Placement X-Ray 01/25/17 Signed Impressions: Service Date/Time: January 10:29 - CONCLUSION: Uncomplicated inferior vena cava filter placement as above. Yung Fowler MD Thoracic Spine MRI 01/24/17 Signed Impressions: Service Date/Time: Tuesday, January 24, 2017 22:29 - CONCLUSION: 1. Mild degenerative spondylosis most prominently at T11-L1 with slight effacement of the anterior thecal sac and left lateral recess. No significant neural foraminal stenosis. 2. No acute fracture. Juan Bhakta MD Renal Ultrasound 01/23/17 Signed Impressions: Service Date/Time: Monday, January 23, 2017 08:53 - CONCLUSION: 1. Evidence of chronic parenchymal disease of both kidneys. No obstructive uropathy or other acute abnormality demonstrated. 2. Trace ascites, nonspecific. Angelo Garrido MD Lumbar Spine MRI 01/23/17 Signed Impressions: Service Date/Time: Monday, January 23, 2017 17:01 - CONCLUSION: 1. At L4-5 is a broad-based disc protrusion with severe central canal and lateral recess stenosis and flattening of the exiting right L4 nerve root. 2. L5-S1 there is a disc protrusion and moderate stenosis with flattening of the exiting L5 nerve roots bilaterally. 3. At L3-4 there is a moderate to severe central stenosis and lateral recess stenosis with mild foraminal stenosis. 4. No acute fracture or spondylolisthesis. Trace Holloway MD Lower Extremity Ultrasound 01/23/17 Signed Impressions: Service Date/Time: Monday, January 23, 2017 09:53 - CONCLUSION: Bilateral focal lower extremity DVT involving the posterior tibial veins. Angelo Garrido MD Cervical Spine MRI 01/23/17 Signed Impressions: Service Date/Time: Monday, January 23, 2017 17:01 - CONCLUSION: 1. Multilevel cervical spine degenerative changes as above. 2. Mild degrees of spinal stenosis at C3/C4-C6/C7. No cord compression or cord signal abnormality. 3. Age indeterminate left paracentral/foraminal disc protrusion at C6/C7. 4. Multilevel foraminal stenosis, most severe on the left at C6/C7. Please see individual levels above. 5. No fracture or subluxation of the cervical spine. Angelo Garrido MD Brain MRI 01/23/17 Signed Impressions: Service Date/Time: Monday, January 23, 2017 17:01 - CONCLUSION: 1. No acute stroke or other acute intracranial abnormality demonstrated. 2. Moderate severity chronic white matter changes, nonspecific but most likely related to chronic small vessel disease. 3. Few scattered tiny lacunar infarcts of the brainstem. 4. Given the findings are not entirely specific, clinical evaluation for possible multiple sclerosis recommended. Angelo Garrido MD Knee X-Ray 01/22/[id number] Signed Impressions: Service Date/Time: Sunday, January 22, 2017 21:17 - CONCLUSION: 1. Evidence of moderate to large joint effusion. 2. No acute fracture or malalignment. 3. Mild 3 compartment osteoarthritic change. Benjamin Person MD Hip and Pelvis X-Ray [id number]/22/[id number] Signed Impressions: Service Date/Time: Sunday, January 22, 2017 21:10 - CONCLUSION: 1. Mild to moderate degenerative change of both hips with no acute fracture or malalignment. There is flattening and remodeling of the right humeral head. Benjamin Person MD Physical Exam GENERAL: Sedated, NAD. On the vent SKIN: Cool and dry. No generalized rash. Still very edematous EYES: [place] conjunctiva. No petechia or hemorrhage. EARS, NOSE AND THROAT: Nose without bleeding or purulent nasal discharge. NECK: Trachea midline. Supple and no meningeal signs. Trach site ok CARDIOVASCULAR: Regular rate and rhythm. Soft heart sounds. No murmurs RESPIRATORY: Coarse BS bilaterally, decreased at bases. ABDOMEN: Soft, mildly distended, PEG site ok EXTREMITIES: No clubbing, cyanosis. Edema feet better; edema hands better : very swollen scrotum, has a lot of sediment in his cath tubing NEUROLOGICAL: sedated PSYCHIATRIC: unable to assess LINE: Lines with no evidence of infection Assessment & Plan Remarks IMPRESSION Fevers - had Kleb and Sten mal in sputum, now with Pseudomonas HCAP, Pseudomonas now, previously Kleb and Sten mal New shock post reintubation 03/12, better, off pressors Shock, due to large R retroperitoneal bleed, S/P multiple transfusions and S/ P coiling of bleeders, resolved Elevated amylase and lipase, better Anemia, due to bleed, retroperitoneal MSSA sepsis, due to suppurative thrombophlebitis LUE, S/P I and D and excision of portion of cephalic vein - needs Rx until Mar 25 Respiratory failure, has had several intubations - reintubated again 02/28, extubated 03/11 - reintubated again - S/P trach 03/14 Recent Rx 7 days high dose solumedrol for transverse myelitis Uw LE DVT has IVC filter placed 01/25 - ?hypercoagulable state Chronic kidney disease, worsening creatinine - shock and compression of ureter by hematoma Known DM, HTN Gouty tophi both hands and feet Diarrhea, C diff negative UTI, GNR - repeat UA better, but a lot of sediment in the urine Thrombocytopenia, no evidence of DIC, ?meds, ?infection, ?due to bleed - improving RECOMMENDATION Change INvanz to Merem to cover for Pseudomonas until final ID avail - his UTI Rx will end today Continue Bactrim to cover Sten mal Vanco dose today, check level on Sunday Follow new C/S Monitor temps' Monitor progress Palliative med following D/W RN Dr Carrie Puente covering me 03/16 Dr Acevedo covering the weekend Irene Edwards MD Mar 15, 2017 14:59
[2017-03-15] MEDS ORDERED: ASP: Other exception documentation: ( ) PRN (15:00)
[2017-03-15] MEDS ORDERED: MISCELLANEOUS PHARMACY INFORMATION XX PRN (15:00)
--- NOTE | 2017-03-15 15:12 | HHI.NPPN ---
Subjective History of Present Illness 61-year-old with history of urinary stone Additional Remarks Patient had trach on vent Review of Systems General Constitutional: Fatigue Objective Data Data 03/15/17 03/16/17 19:00 07:00 Intake Total 400 ml Output Total 4000 ml Balance -3600 ml IV Total 200 ml Other 200 ml Hemodialysis 4000 ml Vital Signs Date Time Temp Pulse Resp B/P (MAP) Pulse Ox O2 Delivery O2 Flow Rate FiO2 03/15/17 12:00 84 03/15/17 12:00 98.1 84 16 125/74 (91) 99 03/15/17 12:00 50 03/15/17 11:34 98 50 03/15/17 10:00 80 03/15/17 08:39 100 50 03/15/17 08:00 98.0 86 16 111/63 (79) 100 03/15/17 08:00 50 03/15/17 08:00 86 03/15/17 07:00 100 Mechanical Ventilator 4.00 50 03/15/17 06:00 88 03/15/17 04:00 97.7 88 18 126/60 (82) 99 03/15/17 04:00 112 03/15/17 04:00 50 03/15/17 03:52 100 50 03/15/17 02:00 94 03/15/17 00:00 97.8 91 18 120/57 (78) 98 03/15/17 00:00 91 03/15/17 00:00 50 03/14/17 23:52 100 Ventilator 03/14/17 23:47 100 50 03/14/17 22:00 101 03/14/17 21:10 99 50 03/14/17 20:00 97 03/14/17 20:00 98.2 97 19 118/56 (76) 99 03/14/17 20:00 50 03/14/17 19:00 99 Mechanical Ventilator 40 03/14/17 18:00 102 03/14/17 16:46 99 100 03/14/17 16:00 101 03/14/17 16:00 100.3 101 16 114/53 (73) 99 03/14/17 16:00 50 -: 03/15/17 0419 03/15/17 0419 Physical Exam General Appearance: Pale Eyes Eye Exam: Pupils Equal Throat Throat Exam: Oral Mucosa [place] & Moist Neck Neck Exam: Neck Supple Pulmonary Resp Exam: Rhonchi, Decreased Bases, Diminished Breath Sounds Cardiology CV Exam: Normal Sinus Rhythm Gastrointestinal/Abdomen GI Exam: Non-Tender, Distended Extremeties Extremities Exam: Pitting Edema, Dependent Edema Neurologic Neuro Exam: Awake Assessment/Plan Problem List: (1) Acute renal failure ICD Codes: N17.9 - Acute kidney failure, unspecified Status: Acute Plan: Patient developed Hypotension,sepsis staph aureus respiratory failure and increase WBC. Had aspiration pneumonia, developed sepsis with ARF again creatinine declined slightly post hydration he also had retroperitoneal bleed Elevated intra abdominal pressures - improved now. 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 He was tried on sodium modeling and hemodialysis combined with ultrafiltration hemodialysis done 4 L removed, he desaturates despite UF FiO2 inc to 60% He has generalized anasarca On ventilator s/p Trach Prognosis guarded (2) CKD (chronic kidney disease) stage 3, GFR 30-59 ml/min ICD Codes: N18.3 - Chronic kidney disease, stage 3 (moderate) Status: Chronic Plan: Ultrasound revealed chronic kidney disease there is no kidney stones (3) Diabetes ICD Codes: E11.9 - Type 2 diabetes mellitus without complications Plan: Continue to monitor (4) Distal end of ulna fracture, closed ICD Codes: S52.609A - Unspecified fracture of lower end of unspecified ulna, initial encounter for closed fracture Status: Acute Plan: Orthopedic is following Problem Qualifiers (1) Acute renal failure: Qualified Codes: N17.9 - Acute kidney failure, unspecified Laura Liao MD Mar 15, 2017 15:12
[2017-03-15] MEDS ORDERED: VANCOMYCIN INJ 1,000 MG in SODIUM CHLOR 0.9% 250 ML INJ 250 ML IV ONE (16:00)
--- NOTE | 2017-03-15 16:21 | HHI.HCPN ---
Reason for visit a. To assist with evaluation and management of symptoms including: shortness of breath, pain, debility b. To assist medical decision maker(s) with: better understanding of current medical conditions; weighing benefits/burdens of medical treatment options; making medical treatment decisions. (Aftab Cartwright) Subjective/Interval History Mr Kerr is a 62 years old male with a past medical history of hypertension, asthma, diabetes, hyperlipidemia, chronic kidney disease and gout. Patient presented to the ED on 01/22/17 complaining of bilateral knee and right arm pain after a mechanical fall 4 or 5 days prior to coming to the ER. Patient has been experiencing progressive weakness of bilateral lower extremities as well as bilateral upper extremities prior to ER visit. Patient seen and assessed in ICU. GI team at bedside, preparing for PEG placement at bedside. Patient has a tracheostomy and remains on mechanical ventilation. FIO2 50%. O2 saturation high 90s. Patient is sedated- on Midalozam and Fentanyl drips. Patient is afebrile. SBP low 100s- 120s. Laboratory work up revealed WBC 15.6, Hgb 8.6, Hct 26.2, Plt Count 280, sodium 131, potassium 3.8, BUN/creatinine 75/2.45. Hemodialysis done today- 4,000ml removed. No recent imaging. Nephrology and Infectious disease following. (Aftab Cartwright) Advance Directives Living Will: Never completed Health Care Surrogate: Never completed Durable Power of Cotton Washer: Never completed (Aftab Cartwright) Advance Directive Specifics Documented care wishes: No known documented care wishes have been completed. . (Aftab Cartwright) Objective Vital Signs Date Time Temp Pulse Resp B/P (MAP) Pulse Ox O2 Delivery O2 Flow Rate FiO2 03/15/17 12:00 84 03/15/17 12:00 98.1 84 16 125/74 (91) 99 03/15/17 12:00 50 03/15/17 11:34 98 50 03/15/17 10:00 80 03/15/17 08:39 100 50 03/15/17 08:00 98.0 86 16 111/63 (79) 100 03/15/17 08:00 50 03/15/17 08:00 86 03/15/17 07:00 100 Mechanical Ventilator 4.00 50 10/26/17 06:00 88 03/15/17 04:00 97.7 88 18 126/60 (82) 99 03/15/17 04:00 112 03/15/17 04:00 50 03/15/17 03:52 100 50 03/15/17 02:00 94 03/15/17 00:00 97.8 91 18 120/57 (78) 98 03/15/17 00:00 91 03/15/17 00:00 50 03/14/17 23:52 100 Ventilator 03/14/17 23:47 100 50 03/14/17 22:00 101 03/14/17 21:10 99 50 03/14/17 20:00 97 03/14/17 20:00 98.2 97 19 118/56 (76) 99 03/14/17 20:00 50 03/14/17 19:00 99 Mechanical Ventilator 40 03/14/17 18:00 102 03/14/17 16:46 99 100 03/14/17 16:00 101 03/14/17 16:00 100.3 101 16 114/53 (73) 99 03/14/17 16:00 50 Intake & Output 03/15/17 03/15/17 07:00 19:00 Intake Total 413.5 ml 400 ml Output Total 200 ml 4000 ml Balance 213.5 ml -3600 ml IV Total 413.5 ml 200 ml Other 200 ml Output Urine Total 200 ml Hemodialysis 4000 ml # Bowel Movements 0 Physical Exam CONSTITUTIONAL/GENERAL: This is an adequately nourished patient, intubated, sedated on mechanical ventilation TUBES/LINES/DRAINS:RIJ TLC, LIJ Vas Cath, OGT, Tracheostomy, FC SKIN: No jaundice. Weeping edema. Ecchymoses on upper extremities. No wounds seen anteriorly. Low-grade temp. Not diaphoretic. HEAD: Atraumatic. Normocephalic. EYES: Pupils equal and round, slight reaction.No scleral icterus. No injection or drainage. Fundi not examined. ENT: Intubated and sedated. Nose without bleeding or purulent drainage. Moist oral mucosa. Clear oral secretions NECK: Trachea midline. Supple, nontender. CARDIOVASCULAR: Regular rate and rhythm without murmurs, gallops, or rubs. No JVD. RESPIRATORY/CHEST: Symmetric, unlabored respirations. Clear to auscultation. Breath sounds equal bilaterally. No wheezes, rales, or rhonchi. GASTROINTESTINAL: Abdomen soft, non-tender, nondistended. No hepato-splenomegaly , or palpable masses. No guarding. Bowel sounds present. GENITOURINARY: Without palpable bladder distension. Sloan catheter in place with scant amount of urine. Scrotal edema. MUSCULOSKELETAL: Gouty tophi to fingers, knees, elbows and both ankles. +1 bilateral upper and lower extremity edema. NEUROLOGICAL: Intubated, sedated on mechanical ventilation. PSYCHIATRIC: No obvious anxiety/depression. no apparent hallucinations or other psychotic thought process. . (Aftab Cartwright) Diagnostic Tests Laboratory Laboratory Tests Test 03/12/17 22:15 03/13/17 02:39 03/13/17 04:20 03/14/17 04:45 White Blood Count 13.6 TH/MM3 (4.0-11.0) 21.1 TH/MM3 (4.0-11.0) 14.6 TH/MM3 (4.0-11.0) Red Blood Count 2.63 MIL/MM3 (4.50-5.90) 2.87 MIL/MM3 (4.50-5.90) 2.58 MIL/MM3 (4.50-5.90) Hemoglobin 7.8 GM/DL (13.0-17.0) 8.4 GM/DL (13.0-17.0) 7.6 GM/DL (13.0-17.0) Hematocrit 23.9 % (39.0-51.0) 26.1 % (39.0-51.0) 23.3 % (39.0-51.0) Mean Corpuscular Volume 90.7 FL (80.0-100.0) 90.9 FL (80.0-100.0) 90.3 FL (80.0-100.0) Mean Corpuscular Hemoglobin 29.5 PG (27.0-34.0) 29.1 PG (27.0-34.0) 29.3 PG (27.0-34.0) Mean Corpuscular Hemoglobin Concent 32.6 % (32.0-36.0) 32.0 % (32.0-36.0) 32.4 % (32.0-36.0) Red Cell Distribution Width 15.3 % (11.6-17.2) 15.7 % (11.6-17.2) 15.6 % (11.6-17.2) Platelet Count 226 TH/MM3 (150-450) 316 TH/MM3 (150-450) 282 TH/MM3 (150-450) Mean Platelet Volume 8.2 FL (7.0-11.0) 8.1 FL (7.0-11.0) 7.9 FL (7.0-11.0) Blood Gas Puncture Site RT BRACHIAL Blood Gas Patient Temperature 98.6 Blood Gas HCO3 18 mmol/L (22-26) Blood Gas Base Excess -7.4 mmol/L (-2-2) Blood Gas Oxygen Saturation 90 % (90-100) Arterial Blood pH 7.28 (7.380-7.420) Arterial Blood Partial Pressure CO2 40 mmHg (38-42) Arterial Blood Partial Pressure O2 73 mmHg (61-120) Arterial Blood Oxygen Content 10.8 Vol % (12.0-20.0) Arterial Blood Carboxyhemoglobin 2.2 % (0-4) Arterial Blood Methemoglobin 1.7 % (0-2) Blood Gas Hemoglobin 8.5 G/DL (12.0-16.0) Oxygen Delivery Device VENTILATOR Blood Gas Ventilator Setting [facility]/AC Blood Gas Inspired Oxygen 50 % Neutrophils (%) (Auto) 85.5 % (16.0-70.0) 84.5 % (16.0-70.0) Lymphocytes (%) (Auto) 6.7 % (9.0-44.0) 7.5 % (9.0-44.0) Monocytes (%) (Auto) 6.0 % (0.0-8.0) 4.8 % (0.0-8.0) Eosinophils (%) (Auto) 1.3 % (0.0-4.0) 2.3 % (0.0-4.0) Basophils (%) (Auto) 0.5 % (0.0-2.0) 0.9 % (0.0-2.0) Neutrophils # (Auto) 18.1 TH/MM3 (1.8-7.7) 12.4 TH/MM3 (1.8-7.7) Lymphocytes # (Auto) 1.4 TH/MM3 (1.0-4.8) 1.1 TH/MM3 (1.0-4.8) Monocytes # (Auto) 1.3 TH/MM3 (0-0.9) 0.7 TH/MM3 (0-0.9) Eosinophils # (Auto) 0.3 TH/MM3 (0-0.4) 0.3 TH/MM3 (0-0.4) Basophils # (Auto) 0.1 TH/MM3 (0-0.2) 0.1 TH/MM3 (0-0.2) CBC Comment AUTO DIFF AUTO DIFF Differential Comment AUTO DIFF CONFIRMED FINAL DIFF MANUAL Blood Urea Nitrogen 66 MG/DL (7-18) 64 MG/DL (7-18) Creatinine 1.73 MG/DL (0.60-1.30) 1.99 MG/DL (0.60-1.30) Random Glucose 100 MG/DL (74-106) 126 MG/DL (74-106) Total Protein 5.3 GM/DL (6.4-8.2) 5.1 GM/DL (6.4-8.2) Albumin 2.1 GM/DL (3.4-5.0) 1.7 GM/DL (3.4-5.0) Calcium Level 7.9 MG/DL (8.5-10.1) 8.0 MG/DL (8.5-10.1) Phosphorus Level 4.0 MG/DL (2.5-4.9) 4.3 MG/DL (2.5-4.9) Magnesium Level 1.7 MG/DL (1.5-2.5) 1.7 MG/DL (1.5-2.5) Alkaline Phosphatase 118 U/L (45-117) 119 U/L (45-117) Aspartate Amino Transf (AST/SGOT) 42 U/L (15-37) 43 U/L (15-37) Alanine Aminotransferase (ALT/SGPT) 23 U/L (12-78) 19 U/L (12-78) Total Bilirubin 0.7 MG/DL (0.2-1.0) 0.6 MG/DL (0.2-1.0) Sodium Level 150 MEQ/L (136-145) 150 MEQ/L (136-145) Potassium Level 3.4 MEQ/L (3.5-5.1) 3.6 MEQ/L (3.5-5.1) Chloride Level 118 MEQ/L (98-107) 118 MEQ/L (98-107) Carbon Dioxide Level 19.0 MEQ/L (21.0-32.0) 19.6 MEQ/L (21.0-32.0) Anion Gap 13 MEQ/L (5-15) 12 MEQ/L (5-15) Estimat Glomerular Filtration Rate 40 ML/MIN (>89) 34 ML/MIN (>89) Random Vancomycin Level 23.7 COMMENT 28.5 COMMENT Differential Total Cells Counted 100 Neutrophils % (Manual) 74 % (16-70) Band Neutrophils % 12 % (0-6) Lymphocytes % 4 % (9-44) Monocytes % 6 % (0-8) Neutrophils # (Manual) 13.1 TH/MM3 (1.8-7.7) Metamyelocytes 2 % (0-1) Myelocytes 2 % (0-0) Platelet Estimate NORMAL (NORMAL) Platelet Morphology Comment NORMAL (NORMAL) Test 03/14/17 11:58 03/15/17 04:19 Hemoglobin 9.3 GM/DL (13.0-17.0) 8.6 GM/DL (13.0-17.0) Hematocrit 28.4 % (39.0-51.0) 26.2 % (39.0-51.0) White Blood Count 15.6 TH/MM3 (4.0-11.0) Red Blood Count 2.94 MIL/MM3 (4.50-5.90) Mean Corpuscular Volume 89.2 FL (80.0-100.0) Mean Corpuscular Hemoglobin 29.2 PG (27.0-34.0) Mean Corpuscular Hemoglobin Concent 32.8 % (32.0-36.0) Red Cell Distribution Width 16.6 % (11.6-17.2) Platelet Count 280 TH/MM3 (150-450) Mean Platelet Volume 8.1 FL (7.0-11.0) Blood Urea Nitrogen 75 MG/DL (7-18) Creatinine 2.45 MG/DL (0.60-1.30) Random Glucose 188 MG/DL (74-106) Calcium Level 8.3 MG/DL (8.5-10.1) Sodium Level 151 MEQ/L (136-145) Potassium Level 3.8 MEQ/L (3.5-5.1) Chloride Level 118 MEQ/L (98-107) Carbon Dioxide Level 15.9 MEQ/L (21.0-32.0) Anion Gap 17 MEQ/L (5-15) Estimat Glomerular Filtration Rate 27 ML/MIN (>89) (Aftab Cartwright) Result Diagram: 03/15/17 0419 03/15/17 0419 Microbiology Microbiology Date/Time Source Procedure Growth Status 03/13/17 09:20 Sputum Endotracheal Gram Stain - Final Resulted 03/13/17 09:20 Sputum Culture - Preliminary Pseudomonas Species Resulted Procedures 01/25/2017- Retrievable IVC Filter placement 01/26/17-lumbar puncture with fluoroscopy-by interventional radiology 02/01/17- lumbar puncture fluoroscopy by interventional radiology 02/10/17- Endotracheal Intubation 02/10/17-left IJ central venous line placed 02/10/17-left femoral arterial line placed 02/11/17-Diagnostic and therapeutic bronchoscopy with bronchoalveolar lavage 02/11/17-Left upper extremity incision and debridement with excision of septic cephalic vein 02/13/17- Extubated 02/20/17- endotracheal intubation 02/20/17- Left subclavian central line placement 02/20/17-Right radial A-line placement 02/22/17-EGD/colonoscopy 02/28/17-right radial a line 02/28/17- Endotracheal intubation 02/28/17- right sided introducer catheter placement 02/28/17- Right IJ central line placement 02/28/17-Right chest tube placement 02/28/17- Embolization of inferior and superior sacral branches of right internal iliac artery 03/01/17- Hemodialysis access catheter 03/03/17-Right IJ central line placement 03/11/17-Extubated 03/13/17- Endotracheal intubation 03/14/17-Tracheostomy placement 03/15/17-PEG tube placement . (Aftab Cartwright) Assessment and Plan Disease Oriented Problem List: (1) Acute respiratory failure (2) Septic shock (3) Aspiration pneumonia (4) Acute renal failure (5) CKD (chronic kidney disease) stage 3, GFR 30-59 ml/min (6) Cardiomyopathy (7) DVT of lower extremity, bilateral (8) Thrombophlebitis arm (9) Diabetes mellitus (10) Gout (11) HTN (hypertension) (12) Hyperlipidemia Symptom Scale: (1) Shortness of breath 0-10 Scale: Unable to quantify Comment: Currently trached and on mechanical ventilation . (2) Debility 0-10 Scale: Unable to quantify (3) Pain 0-10 Scale: Unable to quantify Comment: History of falls, gout, arthritis, and currently bedbound. . Pertinent Non-Medical Issues Psychosocial:Patient was born and raised in [place], [place]. Patient was once for 20 years, now and has 2 adult sons. 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 He recently resigned due to failing health. Spiritual: No anglican affiliation Legal: Per [place] statutes, in the absence of written advanced directives healthcare proxy decision making falls to the patient's 2 adult children. Patient's son (Davie) lives locally and wishes to participate in the role of the healthcare proxy decision maker. Palliative care has attempted to contact the patient's son, Arnel, who lives in [facility] [place]; awaiting return phone call. Ethical issues impacting care: No known ethical issues impacting care at this time. . Important Contacts Son-Davie Kerr - Son-Arnel Kerr- -cell -home Sister-Deb Curry . Prognosis Mr Krer is a 62 years old male with a past medical history of hypertension, asthma, diabetes, hyperlipidemia, chronic kidney disease and gout. Patient presented to the ED on 01/22/17 complaining of bilateral knee and right arm pain after a mechanical fall 4 or 5 days prior to coming to the ER. Clinical course complicated with increased weakness leading to numerous diagnostic work ups for possible transverse myelitis, DVTs, retroperitoneal hematoma, aspiration pneumonia, intubation x 4 times, septic and hemorrhagic shock requiring support with pressors and multiple pRBC, FFP transfusions as well as platelets and cryo , renal failure requiring hemodialysis and sacral wound Given ongoing comorbidities, and prolonged hospitalization, patient remains at risk for further complications, deterioration and decline leading to . Code Status: Full Code Plan PLAN: Legal decision maker: Patient is currently intubated, sedated on a mechanical ventilation and is not able to make any medical decisions for himself at this time. It is unclear if patient will regain capacity to make medical decisions at this time. Patient has 2 adult sons Davie Kerr and Arnel Kerr. According to [place] Statute, his two aforementioned sons will serve as his health care proxys. Awaiting return phone call from patient's son, Arnel. Goals: 03/15/17- Remain Aggressive. PEG Tube placement today. CODE STATUS: Full Code SYMPTOMS: * Shortness of breath: Multifactorial. Patient has had aspiration pneumonia. Patient has been intubated 4 times this hospitalization. Patient on duonebs. Patient will probably require tracheostomy placement. * Pain: Patient presented initially complaining of pain to right wrist and bilateral knees after a mechanical fall. Patient has a history of gout, arthritis, multiple falls and is currently bedbound. Patient currently on a Fentanyl drip. No signs of pain noted. * Debility: Progressive. Patient has had decline in his health for the past 4 months, including progressively increased weakness and difficulty ambulating and prolonged hospitalization with multiple setbacks. Patient remains at high risk for further physical deconditioning and debility. PT consulted. Palliative care will continue to follow the patient during hospital course as condition evolves, to assist patient/decision-maker with understanding of their medical conditions, weighing benefits/burdens of treatment options, for clarification of goals of treatment. Additionally will assist with any symptoms of palliative concern (Aftab Cartwright) Plan Attempted to patient's son (Arnel Kerr) again today 03/15/2017 to determine if he wishes to act in the role of healthcare proxy decision making with his brother (Davie Kerr). A message was left on the patient's son voicemail requesting a return phone call, palliative care contact information was provided. Above assessment and plan reviewed, patient evaluated in dual visit with MURPHY Melendez. Agree with above assessment and plan. . (Mahi Luis) Attestation To help prompt me to consider important information that might be impacting today's encounter and assessment, information from prior notes written by myself or my colleagues may have been "brought forward" into today's note. My signature on this note, however, is an attestation that I personally performed the exam, history, and/or decision-making noted today, and, unless otherwise indicated, the interactions with patient, family, and staff as well as the review of records all occurred today. I also attest that the listed assessment and stated plan reflect my best clinical judgment today based on the combination of historical information, prior notes, and today's exam/ interactions. When time spent is documented, it refers only to time spent today by the signer, or if indicated, combined time spent today by collaborating physician/nurse practitioner. . (Aftab Cartwright) Collaborating MD Comments Chart reviewed. Case discussed with palliative care OPTICIAN MANAGER. Above OPTICIAN MANAGER note reviewed and I concur. . (Austen Knapp MD) Aftab Cartwright Mar 15, 2017 16:21 Mahi Luis Mar 15, 2017 16:32 Austen Knapp MD Mar 15, 2017 17:43
[2017-03-15] MEDS: ATORVASTATIN 10 MG TAB PO SCH (20:52)
--- NOTE | 2017-03-15 21:57 | MP ---
cc: SUHAIL THACKER MD, ALEXANDER S. MD DATE OF SURGERY 03/15/17 PROCEDURE Esophagogastroduodenoscopy with percutaneous gastrostomy tube placement. INDICATION Need for long-term nutritional support for rehabilitation REFERRING PHYSICIAN Dr. Anthony Mendoza PROCEDURE IN DETAIL After informed consent was obtained from family, the patient was placed in the supine position. He was in the ICU on the ventilator. Anesthesia provided additional sedation. After adequate sedation was achieved, the Pentax video gastroscope was inserted in the oropharynx and advanced down to the esophagus into the stomach. There was copious thick green secretions. They were aspirated carefully by irrigating and obtaining out the secretions and suctioning then completely clear. The scope was then advanced down through the stomach into the duodenum reaching the descending portion. It was then slowly withdrawn examining the mucosal surfaces carefully. Retroflex exam was performed. The fundus and cardia scope was then straightened and the stomach was inflated fully so that transillumination could be obtained and excellent transillumination was identified in the subxiphoid area. This area of the skin was then cleaned with Betadine and anesthetized with 1% Xylocaine scalpel. It was used to make an incision and, through the incision, a needle was inserted into the stomach lumen as it was observed on the scope. The catheter was left in place and then the wire was placed through the catheter. It was grasped with a snare and pulled out through the mouth. The gastrostomy tube was then attached to the wire and then pulled down through the esophagus and into place inside the stomach. The tube was then cut and affixed to the abdomen using the appropriate device. The scope was then reinserted into the stomach to identify the internal retainer and this was in good position. The scope was then withdrawn. Procedure was terminated. He tolerated the procedure well and remained in the intensive care unit in stable condition. FINDINGS 1. The esophagus was normal. 2. The stomach contained thick bright green secretions. These were aspirated after they were thinned out with irrigation fluid and the stomach was cleared. 3. The stomach was otherwise normal. 4. The duodenum was normal. 5. Excellent transillumination was identified and excellent indentation to obtain a safe site for the placement of the gastrostomy tube and the gastrostomy tube was placed without difficulty. IMPRESSION Successful gastrostomy tube placement. PLAN 1. The patient should remain n.p.o. 2. He may have medications and water injected in through the tube today and then tomorrow he may begin tube feedings. Suhail Thacker MD [facility]/ /2:25 PM /9:43 PM
[2017-03-15] MEDS: MEROPENEM INJ 500 MG in SODIUM CHLORIDE 0.9% INJ 100 ML IV SCH (23:31)
[2017-03-16] VITALS (19 sets, daily range): BP systolic 107–130; BP diastolic 63–75; PULSE 80–88; RESP 16–18; TEMP 97.8–98.4; O2SAT 97–100
[2017-03-16] MEDS: oxyCODONE HCL ORAL CONC 5 MG/0.25 ML SYRINGE PO SCH ×6 (02:00→20:55)
[2017-03-16] MEDS: INSULIN NovoLIN REGULAR SUPPLEMENTAL SCALE SQ SCH ×6 (04:00→20:00)
[2017-03-16] MEDS: METOCLOPRAMIDE HCL 10 MG/2 ML VIAL IV PUSH SCH ×3 (05:31→20:53)
[2017-03-16] MEDS: HYDROCORTISONE SOD SUCCINATE 100 MG VIAL IV PUSH SCH ×4 (05:31→23:41)
[2017-03-16] MEDS: fentaNYL DRIP 250 ML IV PRN (07:41)
[2017-03-16] MEDS: NOREPINEPHRINE INJ 16 MG in SODIUM CHLOR 0.9% 250 ML INJ 234 ML IV PRN (07:45)
[2017-03-16] MEDS: SULFAMETHOXAZOLE-TRIMETHOPRIM 400-80 MG TAB PO SCH ×2 (08:20→20:55)
[2017-03-16] MEDS: LACTOBACILLUS ACIDOPHILUS TAB PO SCH ×3 (08:20→17:40)
[2017-03-16] MEDS: ATENOLOL 25 MG TAB PO SCH ×2 (08:20→20:55)
[2017-03-16] MEDS: FUROSEMIDE 40 MG/4 ML VIAL IV PUSH SCH ×2 (08:20→17:39)
[2017-03-16] MEDS: LANSOPRAZOLE SOLUTAB 30 MG TAB NG SCH ×2 (08:20→20:55)
[2017-03-16] MEDS: INSULIN DETEMIR 100 UNITS/ML VIAL SQ SCH ×2 (08:21→20:54)
[2017-03-16] MEDS: SODIUM CHLORIDE 0.9% FLUSH 10 ML FLUSH IV FLUSH SCH ×3 (08:21→20:53)
[2017-03-16] MEDS: CHLORHEXIDINE 0.12% (ORAL KIT) 15 ML CUP MT SCH ×2 (08:22→20:52)
[2017-03-16] MEDS: MEROPENEM INJ 500 MG in SODIUM CHLORIDE 0.9% INJ 100 ML IV SCH ×3 (09:01→23:40)
--- NOTE | 2017-03-16 12:52 | HHI.NPPN ---
Subjective History of Present Illness 61-year-old with history of urinary stone Additional Remarks Patient had trach on vent Review of Systems General Constitutional: Fatigue Objective Data Data 03/16/17 03/17/17 19:00 07:00 Intake Total 1250 ml Output Total 0 ml Balance 1250 ml IV Total 1250 ml Output Urine Total 0 ml Vital Signs Date Time Temp Pulse Resp B/P (MAP) Pulse Ox O2 Delivery O2 Flow Rate FiO2 03/16/17 10:40 100 50 03/16/17 10:00 86 03/16/17 08:40 99 50 03/16/17 08:00 50 03/16/17 08:00 82 03/16/17 08:00 98.4 82 18 107/63 (78) 98 03/16/17 07:45 84 107/64 03/16/17 06:00 83 03/16/17 04:39 99 50 03/16/17 04:00 97.8 84 17 107/64 (78) 98 03/16/17 04:00 84 03/16/17 04:00 50 03/16/17 02:00 82 03/16/17 00:14 99 50 03/16/17 00:00 98.0 88 16 130/74 (92) 100 03/16/17 00:00 50 03/16/17 00:00 88 03/15/17 22:00 85 03/15/17 21:06 99 Ventilator 50 03/15/17 21:06 99 50 03/15/17 20:00 97.9 84 17 112/67 (82) 98 03/15/17 20:00 84 03/15/17 20:00 50 03/15/17 18:00 88 03/15/17 16:36 98 50 03/15/17 16:00 50 03/15/17 16:00 98.4 91 16 103/61 (75) 98 03/15/17 16:00 91 03/15/17 14:00 96 -: 03/15/17 0419 03/15/17 0419 Physical Exam General Appearance: Pale Eyes Eye Exam: Pupils Equal Throat Throat Exam: Oral Mucosa [place] & Moist Neck Neck Exam: Neck Supple Pulmonary Resp Exam: Rhonchi, Decreased Bases, Diminished Breath Sounds Cardiology CV Exam: Normal Sinus Rhythm Gastrointestinal/Abdomen GI Exam: Non-Tender, Distended Extremeties Extremities Exam: Pitting Edema, Dependent Edema Neurologic Neuro Exam: Awake Assessment/Plan Problem List: (1) Acute renal failure ICD Codes: N17.9 - Acute kidney failure, unspecified Status: Acute Plan: Patient developed Hypotension,sepsis staph aureus respiratory failure and increase WBC. Had aspiration pneumonia, developed sepsis with ARF again creatinine declined slightly post hydration he also had retroperitoneal bleed Elevated intra abdominal pressures - improved now. 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 He was tried on sodium modeling and hemodialysis combined with ultrafiltration hemodialysis yesterday 4 L removed, he has UF FiO2 50% He has generalized anasarca On ventilator s/p Trach Prognosis guarded next HD in am (2) CKD (chronic kidney disease) stage 3, GFR 30-59 ml/min ICD Codes: N18.3 - Chronic kidney disease, stage 3 (moderate) Status: Chronic Plan: Ultrasound revealed chronic kidney disease there is no kidney stones (3) Diabetes ICD Codes: E11.9 - Type 2 diabetes mellitus without complications Plan: Continue to monitor (4) Distal end of ulna fracture, closed ICD Codes: S52.609A - Unspecified fracture of lower end of unspecified ulna, initial encounter for closed fracture Status: Acute Plan: Orthopedic is following Problem Qualifiers (1) Acute renal failure: Qualified Codes: N17.9 - Acute kidney failure, unspecified Laura Liao MD Mar 16, 2017 12:52
[2017-03-16] MEDS: SODIUM CHLOR 0.9% 1000 ML INJ 1,000 ML IV SCH (13:08)
--- NOTE | 2017-03-16 14:51 | HHI.HCPN ---
Reason for visit a. To assist with evaluation and management of symptoms including: shortness of breath, pain, debility b. To assist medical decision maker(s) with: better understanding of current medical conditions; weighing benefits/burdens of medical treatment options; making medical treatment decisions. (Aftab Cartwright) Subjective/Interval History Mr Kerr is a 62 years old male with a past medical history of hypertension, asthma, diabetes, hyperlipidemia, chronic kidney disease and gout. Patient presented to the ED on 01/22/17 complaining of bilateral knee and right arm pain after a mechanical fall 4 or 5 days prior to coming to the ER. Patient has been experiencing progressive weakness of bilateral lower extremities as well as bilateral upper extremities prior to ER visit. Patient seen and assessed in ICU. Remains on mechanical ventilation support. FIO2 50%. O2 saturation high 90s. Patient unresponsive during visit to noxious stimulation. Bedside RN reported that patient intermittently moves spontaneously. Patient is on Midazolam 1mg/hr, Fentanyl 50 mcg/min and Levophed 1mcg/min. Peg tube placed by GI at bedside on 03/15/17. Patient is afebrile. SBP low 100s- 120s. Nephrology and Infectious disease following. No recent laboratory work up and imaging. Patient`s sister Deb at bedside visiting with patient. Case discussed with bedside RN Tatiana and notified her that patient`s sons are serving as Health Care Proxys. Patient`s son Arnel is yet to call back. . Family/friend interactions Patient`s sister at bedside, updated on medical status. . (Aftab Cartwright) Advance Directives Living Will: Never completed Health Care Surrogate: Never completed Durable Power of Vascular Sonographer: Never completed (Aftab Cartwright) Advance Directive Specifics Documented care wishes: No known documented care wishes have been completed. . (Aftab Cartwright) Objective Vital Signs Date Time Temp Pulse Resp B/P (MAP) Pulse Ox O2 Delivery O2 Flow Rate FiO2 03/16/17 13:38 100 50 03/16/17 12:00 50 03/16/17 12:00 81 03/16/17 12:00 98.4 80 16 124/72 (89) 100 03/16/17 10:40 100 50 03/16/17 10:00 86 03/16/17 08:40 99 50 10/27/17 08:00 50 03/16/17 08:00 82 03/16/17 08:00 98.4 82 18 107/63 (78) 98 03/16/17 07:45 84 107/64 03/16/17 06:00 83 03/16/17 04:39 99 50 03/16/17 04:00 97.8 84 17 107/64 (78) 98 03/16/17 04:00 84 03/16/17 04:00 50 03/16/17 02:00 82 03/16/17 00:14 99 50 03/16/17 00:00 98.0 88 16 130/74 (92) 100 03/16/17 00:00 50 03/16/17 00:00 88 03/15/17 22:00 85 03/15/17 21:06 99 Ventilator 50 03/15/17 21:06 99 50 03/15/17 20:00 97.9 84 17 112/67 (82) 98 03/15/17 20:00 84 03/15/17 20:00 50 03/15/17 18:00 88 03/15/17 16:36 98 50 03/15/17 16:00 50 03/15/17 16:00 98.4 91 16 103/61 (75) 98 03/15/17 16:00 91 Intake & Output 03/16/17 03/16/17 07:00 19:00 Intake Total 100 ml 1750 ml Output Total 75 ml 0 ml Balance 25 ml 1750 ml IV Total 100 ml 1750 ml Output Urine Total 75 ml 0 ml # Bowel Movements 0 Physical Exam CONSTITUTIONAL/GENERAL: This is an adequately nourished patient, intubated, sedated on mechanical ventilation TUBES/LINES/DRAINS: RIJ TLC, LIJ Vas Cath, PEG tube, Tracheostomy, FC SKIN: No jaundice. Weeping edema. Ecchymoses on upper extremities. No wounds seen anteriorly. Afebrile. Not diaphoretic. HEAD: Atraumatic. Normocephalic. EYES: Pupils equal and round, slight reaction.No scleral icterus. No injection or drainage. Fundi not examined. ENT: Intubated and sedated. Nose without bleeding or purulent drainage. Moist oral mucosa. Clear oral secretions NECK: Trachea midline. Supple, nontender. CARDIOVASCULAR: Regular rate and rhythm without murmurs, gallops, or rubs. No JVD. RESPIRATORY/CHEST: Symmetric, unlabored respirations. Clear to auscultation. Breath sounds equal bilaterally. No wheezes, rales, or rhonchi. GASTROINTESTINAL: Abdomen soft, non-tender, nondistended. No hepato-splenomegaly , or palpable masses. No guarding. Bowel sounds present. GENITOURINARY: Without palpable bladder distension. Sloan catheter in place with scant amount of urine. Scrotal edema. MUSCULOSKELETAL: Gouty tophi to fingers, knees, elbows and both ankles. +1 bilateral upper and lower extremity edema. NEUROLOGICAL: Intubated, sedated on mechanical ventilation. PSYCHIATRIC: No obvious anxiety/depression. no apparent hallucinations or other psychotic thought process. . (Aftab Cartwright) Diagnostic Tests Laboratory Laboratory Tests Test 03/14/17 04:45 03/14/17 11:58 03/15/17 04:19 White Blood Count 14.6 TH/MM3 (4.0-11.0) 15.6 TH/MM3 (4.0-11.0) Red Blood Count 2.58 MIL/MM3 (4.50-5.90) 2.94 MIL/MM3 (4.50-5.90) Hemoglobin 7.6 GM/DL (13.0-17.0) 9.3 GM/DL (13.0-17.0) 8.6 GM/DL (13.0-17.0) Hematocrit 23.3 % (39.0-51.0) 28.4 % (39.0-51.0) 26.2 % (39.0-51.0) Mean Corpuscular Volume 90.3 FL (80.0-100.0) 89.2 FL (80.0-100.0) Mean Corpuscular Hemoglobin 29.3 PG (27.0-34.0) 29.2 PG (27.0-34.0) Mean Corpuscular Hemoglobin Concent 32.4 % (32.0-36.0) 32.8 % (32.0-36.0) Red Cell Distribution Width 15.6 % (11.6-17.2) 16.6 % (11.6-17.2) Platelet Count 282 TH/MM3 (150-450) 280 TH/MM3 (150-450) Mean Platelet Volume 7.9 FL (7.0-11.0) 8.1 FL (7.0-11.0) Neutrophils (%) (Auto) 84.5 % (16.0-70.0) Lymphocytes (%) (Auto) 7.5 % (9.0-44.0) Monocytes (%) (Auto) 4.8 % (0.0-8.0) Eosinophils (%) (Auto) 2.3 % (0.0-4.0) Basophils (%) (Auto) 0.9 % (0.0-2.0) Neutrophils # (Auto) 12.4 TH/MM3 (1.8-7.7) Lymphocytes # (Auto) 1.1 TH/MM3 (1.0-4.8) Monocytes # (Auto) 0.7 TH/MM3 (0-0.9) Eosinophils # (Auto) 0.3 TH/MM3 (0-0.4) Basophils # (Auto) 0.1 TH/MM3 (0-0.2) CBC Comment AUTO DIFF Differential Total Cells Counted 100 Neutrophils % (Manual) 74 % (16-70) Band Neutrophils % 12 % (0-6) Lymphocytes % 4 % (9-44) Monocytes % 6 % (0-8) Neutrophils # (Manual) 13.1 TH/MM3 (1.8-7.7) Metamyelocytes 2 % (0-1) Myelocytes 2 % (0-0) Differential Comment FINAL DIFF MANUAL Platelet Estimate NORMAL (NORMAL) Platelet Morphology Comment NORMAL (NORMAL) Blood Urea Nitrogen 64 MG/DL (7-18) 75 MG/DL (7-18) Creatinine 1.99 MG/DL (0.60-1.30) 2.45 MG/DL (0.60-1.30) Random Glucose 126 MG/DL (74-106) 188 MG/DL (74-106) Total Protein 5.1 GM/DL (6.4-8.2) Albumin 1.7 GM/DL (3.4-5.0) Calcium Level 8.0 MG/DL (8.5-10.1) 8.3 MG/DL (8.5-10.1) Phosphorus Level 4.3 MG/DL (2.5-4.9) Magnesium Level 1.7 MG/DL (1.5-2.5) Alkaline Phosphatase 119 U/L (45-117) Aspartate Amino Transf (AST/SGOT) 43 U/L (15-37) Alanine Aminotransferase (ALT/SGPT) 19 U/L (12-78) Total Bilirubin 0.6 MG/DL (0.2-1.0) Sodium Level 150 MEQ/L (136-145) 151 MEQ/L (136-145) Potassium Level 3.6 MEQ/L (3.5-5.1) 3.8 MEQ/L (3.5-5.1) Chloride Level 118 MEQ/L (98-107) 118 MEQ/L (98-107) Carbon Dioxide Level 19.6 MEQ/L (21.0-32.0) 15.9 MEQ/L (21.0-32.0) Anion Gap 12 MEQ/L (5-15) 17 MEQ/L (5-15) Estimat Glomerular Filtration Rate 34 ML/MIN (>89) 27 ML/MIN (>89) Random Vancomycin Level 28.5 COMMENT (Aftab Cartwright) Result Diagram: 03/15/17 0419 03/15/17 0419 Procedures 01/25/2017- Retrievable IVC Filter placement 01/26/17-lumbar puncture with fluoroscopy-by interventional radiology 02/01/17- lumbar puncture fluoroscopy by interventional radiology 02/10/17- Endotracheal Intubation 02/10/17-left IJ central venous line placed 02/10/17-left femoral arterial line placed 02/11/17-Diagnostic and therapeutic bronchoscopy with bronchoalveolar lavage 02/11/17-Left upper extremity incision and debridement with excision of septic cephalic vein 02/13/17- Extubated 02/20/17- endotracheal intubation 02/20/17- Left subclavian central line placement 02/20/17-Right radial A-line placement 02/22/17-EGD/colonoscopy 02/28/17-right radial a line 02/28/17- Endotracheal intubation 02/28/17- right sided introducer catheter placement 02/28/17- Right IJ central line placement 02/28/17-Right chest tube placement 02/28/17- Embolization of inferior and superior sacral branches of right internal iliac artery 03/01/17- Hemodialysis access catheter 03/03/17-Right IJ central line placement 03/11/17-Extubated 03/13/17- Endotracheal intubation 03/14/17-Tracheostomy placement 03/15/17-PEG tube placement . (Aftab Cartwright) Assessment and Plan Disease Oriented Problem List: (1) Acute respiratory failure (2) Septic shock (3) Aspiration pneumonia (4) Acute renal failure (5) CKD (chronic kidney disease) stage 3, GFR 30-59 ml/min (6) Cardiomyopathy (7) DVT of lower extremity, bilateral (8) Thrombophlebitis arm (9) Diabetes mellitus (10) Gout (11) HTN (hypertension) (12) Hyperlipidemia Symptom Scale: (1) Shortness of breath 0-10 Scale: Unable to quantify Comment: Currently trached and on mechanical ventilation . (2) Debility 0-10 Scale: Unable to quantify Comment: Progressive. . (3) Pain 0-10 Scale: Unable to quantify Comment: History of falls, gout, arthritis, and currently bedbound. . Pertinent Non-Medical Issues Psychosocial:Patient was born and raised in [place], [place]. Patient was once for 20 years, now and has 2 adult sons. 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 He recently resigned due to failing health. Spiritual: No gnosticism affiliation Legal: Per [place] statutes, in the absence of written advanced directives healthcare proxy decision making falls to the patient's 2 adult children. Patient's son (Davie) lives locally and wishes to participate in the role of the healthcare proxy decision maker. Palliative care has attempted to contact the patient's son, Arnel, who lives in [facility]; awaiting return phone call. Ethical issues impacting care: No known ethical issues impacting care at this time. . Important Contacts Son-Davie Kerr - Son-Arnel Kerr- -cell -home Sister-Deb Curry . Prognosis Mr Kerr is a 62 years old male with a past medical history of hypertension, asthma, diabetes, hyperlipidemia, chronic kidney disease and gout. Patient presented to the ED on 01/22/17 complaining of bilateral knee and right arm pain after a mechanical fall 4 or 5 days prior to coming to the ER. Clinical course complicated with increased weakness leading to numerous diagnostic work ups for possible transverse myelitis, DVTs, retroperitoneal hematoma, aspiration pneumonia, intubation x 4 times, septic and hemorrhagic shock requiring support with pressors and multiple pRBC, FFP transfusions as well as platelets and cryo , renal failure requiring hemodialysis and sacral wound Given ongoing comorbidities, and prolonged hospitalization, patient remains at risk for further complications, deterioration and decline leading to . Code Status: Full Code Plan PLAN: Legal decision maker: Patient is currently intubated, sedated on a mechanical ventilation and is not able to make any medical decisions for himself at this time. It is unclear if patient will regain capacity to make medical decisions at this time. Patient has 2 adult sons Davie Kerr and Arnel Kerr. According to [place] Statute, his two aforementioned sons will serve as his health care proxys. 3 telephone messages have been left for son Arnelto discuss his desire to act as a HCP. Patient`s son Davie is acting in the role of HCP decision maker independently at this time given that he is the one who is reasonably available for consultation. Goals: 03/16/17- Remain Aggressive. CODE STATUS: Full Code SYMPTOMS: * Shortness of breath: Multifactorial. Patient has had aspiration pneumonia. Patient has been intubated 4 times this hospitalization. Patient on duonebs. Patient has a tracheostomy. * Pain: Patient presented initially complaining of pain to right wrist and bilateral knees after a mechanical fall. Patient has a history of gout, arthritis, multiple falls and is currently bedbound. Patient currently on a Fentanyl drip. No signs of pain noted. * Debility: Progressive. Patient has had decline in his health for the past 4 months, including progressively increased weakness and difficulty ambulating and prolonged hospitalization with multiple setbacks. Patient remains at high risk for further physical deconditioning and debility. PT consulted. Palliative care will continue to follow the patient during hospital course as condition evolves, to assist patient/decision-maker with understanding of their medical conditions, weighing benefits/burdens of treatment options, for clarification of goals of treatment. Additionally will assist with any symptoms of palliative concern. . (Aftab Cartwright) Plan Above assessment and plan reviewed, patient evaluated in dual visit with MURPHY Melendez. Agree with above assessment and plan. (Mahi Luis) Attestation To help prompt me to consider important information that might be impacting today's encounter and assessment, information from prior notes written by myself or my colleagues may have been "brought forward" into today's note. My signature on this note, however, is an attestation that I personally performed the exam, history, and/or decision-making noted today, and, unless otherwise indicated, the interactions with patient, family, and staff as well as the review of records all occurred today. I also attest that the listed assessment and stated plan reflect my best clinical judgment today based on the combination of historical information, prior notes, and today's exam/ interactions. When time spent is documented, it refers only to time spent today by the signer, or if indicated, combined time spent today by collaborating physician/nurse practitioner. (Aftab Cartwright) Aftab Cartwright Mar 16, 2017 14:51 Mahi Luis Mar 16, 2017 15:32
--- NOTE | 2017-03-16 15:07 | HHI.GIFU ---
Subjective Remarks Pt sedated on vent. No distress. S/P PEG tube placement yesterday. TF has not been started yet. Objective Vitals I&O Vital Signs Date Time Temp Pulse Resp B/P (MAP) Pulse Ox O2 Delivery O2 Flow Rate FiO2 03/16/17 13:38 100 50 03/16/17 12:00 50 03/16/17 12:00 81 03/16/17 12:00 98.4 80 16 124/72 (89) 100 03/16/17 10:40 100 50 03/16/17 10:00 86 03/16/17 08:40 99 50 03/16/17 08:00 50 03/16/17 08:00 82 03/16/17 08:00 98.4 82 18 107/63 (78) 98 03/16/17 07:45 84 107/64 03/16/17 06:00 83 03/16/17 04:39 99 50 03/16/17 04:00 97.8 84 17 107/64 (78) 98 03/16/17 04:00 84 03/16/17 04:00 50 03/16/17 02:00 82 03/16/17 00:14 99 50 03/16/17 00:00 98.0 88 16 130/74 (92) 100 03/16/17 00:00 50 03/16/17 00:00 88 03/15/17 22:00 85 03/15/17 21:06 99 Ventilator 50 03/15/17 21:06 99 50 03/15/17 20:00 97.9 84 17 112/67 (82) 98 03/15/17 20:00 84 03/15/17 20:00 50 03/15/17 18:00 88 03/15/17 16:36 98 50 03/15/17 16:00 50 03/15/17 16:00 98.4 91 16 103/61 (75) 98 03/15/17 16:00 91 I/O 03/15/17 03/15/17 03/15/17 03/16/17 03/16/17 03/16/17 07:00 15:00 23:00 07:00 15:00 23:00 Intake Total 313.5 ml 400 ml 178 ml 100 ml 1750 ml Output Total 200 ml 4000 ml 100 ml 75 ml 0 ml Balance 113.5 ml -3600 ml 78 ml 25 ml 1750 ml Intake Oral 0 ml IV Total 313.5 ml 200 ml 178 ml 100 ml 1750 ml Other 200 ml Output Urine Total 200 ml 100 ml 75 ml 0 ml Hemodialysis 4000 ml Bladder Scan Volume Amount 125 ml # Bowel Movements 0 1 0 Laboratory Date/Time Source Procedure Growth Status 03/08/17 19:49 Blood Peripheral Aerobic Blood Culture - Final NO GROWTH IN 5 DAYS Complete 03/08/17 19:49 Blood Peripheral Anaerobic Blood Culture - Final NO GROWTH IN 5 DAYS Complete 02/01/17 09:55 Cerebral Spinal Fluid Lumbar Puncture Fungal Smear - Final NO FUNGAL ELEMENTS SEEN. Complete 02/01/17 09:55 Cerebral Spinal Fluid Lumbar Puncture Fungal Culture - Final NO GROWTH IN 4 WEEKS Complete 02/17/17 05:55 Stool Stool Stool Occult Blood (GREGORY) - Final HEMOCCULT POSITIVE Complete 03/13/17 09:20 Sputum Endotracheal Gram Stain - Final Complete 03/13/17 09:20 Sputum Culture - Final Pseudomonas Aeruginosa Complete 02/27/17 08:32 Urine Catheterized Urine Urine Culture - Final Klebsiella Pneumoniae Esbl Pos Complete 02/11/17 09:10 Abscess Arm Acid Fast Stain - Final NO ACID FAST BACILLI SEEN Resulted 02/11/17 09:10 Abscess Arm Mycobacterial Culture - Preliminary NO GROWTH IN 4 WEEKS Resulted Imaging Last Impressions Chest X-Ray 03/14/17 0000 Signed Impressions: Service Date/Time: Tuesday, March 14, 2017 13:41 - CONCLUSION: 1. Tracheostomy in good position. 2. Left lower lung infiltrates and left pleural effusion. Candido Patton MD Aortography 02/28/17 0000 Signed Impressions: Service Date/Time: Tuesday, February 28, 2017 08:01 - CONCLUSION: 1. Active hemorrhage from distal right lateral sacral and iliolumbar branches successfully coil and Gelfoam embolized, as above. Juan Bhakta MD Abdomen/Pelvis CT 02/28/17 0000 Signed Impressions: Service Date/Time: Tuesday, February 28, 2017 06:51 - CONCLUSION: 1. The right retroperitoneal hematoma has increased in size, as above. There are 2 serpiginous arterially enhancing structures visualized, one in the right psoas muscle and another extending into the hematoma at the right iliac fossa. These could represent sites of continued active bleeding. 2. Stable moderate size left and small right pleural effusion with associated compressive atelectasis. 3. Stable small volume of free fluid in the abdomen and pelvis. There is also anasarca. The findings concerning the retroperitoneal hematoma were discussed with Dr. Aguiar via telephone at approximately 7: 10 AM on 02/28/2017. Angelo Allen MD Chest CT 02/27/17 0000 Signed Impressions: Service Date/Time: Monday, February 27, 2017 18:12 - CONCLUSION: 1. Bilateral pleural effusions with bibasilar atelectasis, left greater than right. Tom Sanchez MD Abdomen X-Ray 02/26/17 0000 Signed Impressions: Service Date/Time: Sunday, February 26, 2017 14:52 - CONCLUSION: 1. Nonobstructive bowel gas pattern. Juan Bhakta MD Upper Extremity Ultrasound 02/10/17 0000 Signed Impressions: Service Date/Time: Friday, February 10, 2017 18:46 - CONCLUSION: Occlusive thrombus in the cephalic and basilic veins. Benjamin Person MD Lung Scan- Nuclear Medicine 02/10/17 0000 Signed Impressions: Service Date/Time: Friday, February 10, 2017 22:17 - CONCLUSION: Low probability pulmonary embolism. Candido Patton MD Head CT 02/10/17 0000 Signed Impressions: Service Date/Time: Friday, February 10, 2017 23:51 - CONCLUSION: Negative noncontrast CT brain. Candido Patton MD Wrist X-Ray 02/06/17 0000 Signed Impressions: Service Date/Time: Monday, February 06, 2017 12:50 - CONCLUSION: Minimally displaced distal radius and ulnar fractures. Armando Dodd MD Lumbar Puncture Fluoroscopy 02/01/17 0000 Signed Impressions: Service Date/Time: January 09:35 - CONCLUSION: Uncomplicated fluoroscopically guided lumbar puncture. CSF was clear. Nabeel Peralta MD Head Magnetic Resonance Angiography 01/27/17 0000 Signed Impressions: Service Date/Time: Friday, January 27, 2017 10:33 - CONCLUSION: No intracranial vascular abnormality is identified. There is no aneurysm visualized. Angelo Allen MD IVC Filter Placement X-Ray 01/25/17 0000 Signed Impressions: Service Date/Time: January 10:29 - CONCLUSION: Uncomplicated inferior vena cava filter placement as above. Yung Fowler MD Thoracic Spine MRI 01/24/17 Signed Impressions: Service Date/Time: Tuesday, January 24, 2017 22:29 - CONCLUSION: 1. Mild degenerative spondylosis most prominently at T11-L1 with slight effacement of the anterior thecal sac and left lateral recess. No significant neural foraminal stenosis. 2. No acute fracture. Juan Bhakta MD Renal Ultrasound 01/23/17 Signed Impressions: Service Date/Time: Monday, January 23, 2017 08:53 - CONCLUSION: 1. Evidence of chronic parenchymal disease of both kidneys. No obstructive uropathy or other acute abnormality demonstrated. 2. Trace ascites, nonspecific. Angelo Garrido MD Lumbar Spine MRI 01/23/17 Signed Impressions: Service Date/Time: Monday, January 23, 2017 17:01 - CONCLUSION: 1. At L4-5 is a broad-based disc protrusion with severe central canal and lateral recess stenosis and flattening of the exiting right L4 nerve root. 2. L5-S1 there is a disc protrusion and moderate stenosis with flattening of the exiting L5 nerve roots bilaterally. 3. At L3-4 there is a moderate to severe central stenosis and lateral recess stenosis with mild foraminal stenosis. 4. No acute fracture or spondylolisthesis. Trace Holloway MD Lower Extremity Ultrasound 01/23/17 Signed Impressions: Service Date/Time: Monday, January 23, 2017 09:53 - CONCLUSION: Bilateral focal lower extremity DVT involving the posterior tibial veins. Angelo Garrido MD Cervical Spine MRI 01/23/17 Signed Impressions: Service Date/Time: Monday, January 23, 2017 17:01 - CONCLUSION: 1. Multilevel cervical spine degenerative changes as above. 2. Mild degrees of spinal stenosis at C3/C4-C6/C7. No cord compression or cord signal abnormality. 3. Age indeterminate left paracentral/foraminal disc protrusion at C6/C7. 4. Multilevel foraminal stenosis, most severe on the left at C6/C7. Please see individual levels above. 5. No fracture or subluxation of the cervical spine. Angelo Garrido MD Brain MRI 9/5/17 0000 Signed Impressions: Service Date/Time: Monday, January 23, 2017 17:01 - CONCLUSION: 1. No acute stroke or other acute intracranial abnormality demonstrated. 2. Moderate severity chronic white matter changes, nonspecific but most likely related to chronic small vessel disease. 3. Few scattered tiny lacunar infarcts of the brainstem. 4. Given the findings are not entirely specific, clinical evaluation for possible multiple sclerosis recommended. Angelo Garrido MD Knee X-Ray [id number]/22/[id number] Signed Impressions: Service Date/Time: Sunday, January 22, 2017 21:17 - CONCLUSION: 1. Evidence of moderate to large joint effusion. 2. No acute fracture or malalignment. 3. Mild 3 compartment osteoarthritic change. Benjamin Person MD Hip and Pelvis X-Ray [id number]/22/[id number] Signed Impressions: Service Date/Time: Sunday, January 22, 2017 21:10 - CONCLUSION: 1. Mild to moderate degenerative change of both hips with no acute fracture or malalignment. There is flattening and remodeling of the right humeral head. Benjamin Person MD Physical Exam HEENT: Normocephalic; atraumatic; no jaundice. CHEST: Resp even/unlabored on vent to tracheostomy, course breath sounds CARDIAC: RRR ABDOMEN: Soft, obese, no hepatosplenomegaly; bowel sounds are present in all four quadrants. Small umbilical hernia, reducible. PEG tube site without redness, swelling, drainage EXTREMITIES: BUE edema. 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 Pt requiring prolonged ventilation. S/P tracheostomy. S/P EGD with PEG tube placement (03/15/17). Site without redness or swelling. Variety Saw Operator recommends Nepro at 55cc/hr. - Anemia, Hemoccult positive stools.S/P EGD/Colonoscopy (02/22/17)----> 1. Gastritis antrum-biopsy esophagitis distal esophagus-biopsy duodenum normal-biopsy 2. Retroflexed views revealed a hiatal hernia 1. Diverticulosis sigmoid, descending polyp hepatic flexure-two--6 mm sessile-cold snare polypectomy with complete removal another 5 mm-cold biopsy with complete removal polyp sessile descending colon-7 mm-cold snare polypectomy with removal sigmoid-6 mm -cold snare polypectomy with complete removal random biopsies from descending colon- 2. Retroflexed views revealed internal hemorrhoids 3. Retroflexed views revealed small internal hemorrhoids 4. Revealed external hemorrhoids. Pathology severe acute ulcerative esophagitis, spores suggestive of bowen at base of ulcer, negative for intestinal metaplasia, dysplasia, mucosal congestion, duodenal mucosa without significant histopathologic abnormality, adenomatous polyp, descending colon polyp fecal material, no viable tissue present, hyperplastic polyp, colonic mucosa without significant histopathologic abnormality. HH stable - Abdominal pain. CT abdomen and pelvis without iv contrast (02/19/17)---> areas of calcification seen in the right renal collecting system, right renal pelvis, adn proximal ureter. these appear to layer and be dependent suggesting likely to represent smaller areas of milk of calcium or small stones. There is mild dilatation of th eright renal collecting system and right ureter. A definite obstructing stone at this time is not seen. A small amount of air within hte urinary bladder. This should be correlated with any recent catheterization. Mild bilateral pleural effusions with accompanying atelectasis or consolidation at the left base. the consolidation was present previously. Prominent degenerative change in the lumbar spine and at the hip joints bilaterally. Improved, although lightly sedated. EGD/Colonoscopy as above. IMPROVED. - Respiratory Failure. S/P tracheostomy. Vent per CCM. - DVT LE, bilateral. - Transverse myelitis, per attending. Per ID - LUE Abscess. S/P I&D with excision of left cephalic vein segment. - BREEZY, improved. Per renal. - HTN, DM, per attending. PLAN: - S/P PEG tube placement - Nepro at 55cc/hr - GI will sign off, please reconsult as needed - Pt seen and examined by Dr. Thacker and myself and this note is written on his behalf Nena Driver Mar 16, 2017 15:07
--- NOTE | 2017-03-16 15:58 | HHI.CCPN ---
Subjective Remarks/Hospital Course Date of admission: 01/22 Date of critical care medicine consult 02/10 due to acute hypoxemic respiratory failure requiring emergent intubation 62-year-old male with a past medical history of hypertension, hyperlipidemia, diabetes mellitus, gout, uric acid kidney stones, kidney disease of unknown stage who originally presented to [facility] emergency department on 01/22 after a fall in which he sustained a right distal ulna fracture. He had been experiencing a gradual primarily lower extremity weakness as well as upper extremity weakness that was progressive. Neurology consult was obtained. MRI revealed no acute stroke. He had multifocal white matter changes. Tiny lacunar infarcts of the brainstem. Lumbar MRI report states L4-L5 disc protrusion with cetnral canal stenosis. Dr. Blackwell evaluated and states no cord compression on MRI C/T spine and recommended nonoperative management. Symptoms were felt to be consistent with transverse myelitis and he underwent Solumedrol 250 mg IV q6 hours 01/27-02/02. He also was found to have occlusive thrombus in the bilateral posterior tibial veins. Heparin was being avoided because he had traumatic lumbar puncture on 01/26 and 02/01. IVC filter was placed 01/25. He was undergoing physical therapy, reportedly making some improvements with plan to eventually discharged home with his son (max assist standing, and bed to chair per PT note). Apparently he had some vomiting the evening of 02/09 and additional vomiting on 02/10. He had a fever 102.8 on 02/09. Last recorded bowel movement was 02/03. Tonight he had acute onset of severe hypoxemia and respiratory distress. [facility] called and he was brought emergently to [facility] where his sats were 64% on 100% nonrebreather with mean arterial pressure 44. He was emergently intubated, CVL and art line placed. He is in septic shock. SUBJ: 02/11: Patient remains intubated sedated, critically ill. FiO2 reduced to 80% after increasing PEEP to 12. In severe septic shock Levophed at 16 mcg/m, vasopressin at 0.04 international units. D/W vascular surgery Dr. Enciso. He performed bedside Left upper extremity incision and debridement and excision of septic cephalic vein. 02/12: Remains intubated sedated profoundly septic, in shock on vasopressin and 7 mcg/min Levophed. FiO2 has improved to 45%, WBC count remains elevated with 20 ,000 white count significant left shift. Slight improvement in creatinine 2.9 urine output 750 ml 24 hours. 2-D echo shows LV ejection fraction 20-25%, no vegetation reported. Blood cultures 4 staph aureus. Wound culture pending 02/13: Remains critically ill but stable to improving. WBC count is down to 16, creatinine improving to 2.36. Off all pressors. Urine output also improving. 1.5L in 24 hours 02/14: Extubated 02/13. Tolerating well. WBC now down to 12.8. Creat improving 2.3 to 2. UO 3.4L. remains off all pressors. Was started on Precedex yesterday night for agitation, currently on 0.5 g per KG per hour. Chest x-ray shows left more than right air space disease 02/20/17 Re consult: 62-year-old male who was originally admitted for lower extremity weakness and found to have what was thought to be possible transverse myelitis. His hospital course his included a healthcare associated pneumonia, septic thrombophlebitis, DVT. He was most recently in the hospital floor where he had significant nausea and vomiting and diarrhea. His C. difficile test was recently negative. However, he has experienced worsening acute on chronic renal failure, hypotension, tachycardia, and severe hypoxemia. He did have a bout of vomiting earlier today, and his hospitalist attending suspects that he may have aspirated. He arrives by rapid response to the ICU with a nonrebreather in place in severe respiratory distress with SPO2 of 85%. I emergently intubate the patient, see separate procedure note for details. At this point the patient was hypotensive and tachycardic. He does have a history of an EF of 20%, however clinically he appears in florid septic shock. I placed central line and arterial line started vasopressors and gentle IV fluid resuscitation with 1 L of LR. Patient today was empirically broadened to vancomycin and Zosyn from his oxacillin which was initially treating MSSA bacteremia. He is recultured. Critical-care medicine is consulted to evaluate and manage his worsening multiorgan system failure and decompensated septic shock 02/21: Patient remains intubated sedated. Becomes anxious tachypnea on sedation lightening. Chest x-ray shows mild left lower lobe infiltrate. WBC count is slightly improved today from 23.2 t0 21. C Diff negative. UO adequate, creat slightly worsening. 1.57 today 02/22: Remains intubated sedated tolerated CPAP yesterday, plan is for EGD/ Colonscopy. WBC count back to normal. UO adequate. Creat stable 02/23: Tolerating CPAP trials following commands. Will do a spontaneous breathing trials. Status post EGD colonoscopy yesterday -Gastritis, esophagitis. Diverticulosis and multiple polyps. Urine output adequate but creatinine increasing to 1.7 with patient requiring multiple straight catheterization. We'll reinsert Sloan. 02/24: Breathing comfortably 24 hours after extubation. Protects airway well. 02/25: Excoriate bottom, will place rectal FMS. Start pureed diet. 02/26: Afebrile. Complaining of nausea and vomiting this afternoon. Increased stool output. Continue potassium replacement today. 02/27: 10 PM overnight, acutely hypotensive. Received 3 units PRBCs. Antibiotic coverage broadened to piperacillin/tazobactam, cortisol and 1 dose of vancomycin. Oxacillin drip currently on hold. Symptomatically, patient continues to vague abdominal pain/nausea vomiting which is unchanged for the past several days. Lipase elevated yesterday. Lactic acid normal. Troponin normal. Urinary retention after removal of Sloan. Straight catheter 1300. Cc 02/28: New diagnosis large retroperitoneal hematoma. Received 10 PRBC, 14 FFP, 2 platelets, 1 cryo-, 6 g calcium chloride, 2 is magnesium sulfate and 4 mg Bumex. CTA abdomen revealed possible arterial bleeds iliac, lumbar. Patient is currently on norepinephrine and epinephrine drips and possible need right nephrostomy tube placement due to large hematoma compressing ureter. Intra-abdominal bladder pressures are currently 13 03/01: Afebrile. Received 25 g albumin and 1 unit PRBCs overnight. Intra- abdominal bladder pressures currently 19. Currently on 3 micrograms per minute of norepinephrine. [id number] 1 out of 4 on 4 mics grams per kilogram per minute of cisatracurium. 03/02: Slightly hypothermic overnight. Hemoglobin appears to have stabilized. Troponin bump overnight likely secondary to demand ischemia from hypotension. Hemodynamically stable off all vasopressors. 03/03: Received 1 PRBCs overnight. 3 units currently. Off all vasopressors. Likely rebleeding. Stool is dark. 03/04: Remains unstable. Ventilator dependent. 03/05: afebrile. hgb stable. 03/06: bumex drip started overnight. good uop after bumex initiated. still grossly volume overloaded. Cr downtrending. more awake with transition to propofol. still too volume overloaded to tolerate extubation. hgb stable. 03/07: Afebrile. Tolerating tube feeds at goal with Nepro. Positive BM. On low-dose fentanyl and propofol drips. Potassium currently being replaced. 03/08: Eyes will open on ventilator. Afebrile. Tolerating tube feeding. Failed PSV trial yesterday due to apnea. 03/09: Following commands. Tmax 101. Tolerating tube feeding. One hour PSV trial yesterday. Currently tolerating well so far today 1.5 hours 03/10: Low-grade temperatures. Tolerating PSV trial 10 hours yesterday. Currently at 5/5 at 35%. We'll probably attempt extubation a.m. after hemodialysis. 03/11: Extubated currently in 4 L nasal cannula. Thick secretions thick clear with cough. Currently afebrile. Tolerating diet previously. Subjective 03/12: Sleepy this morning but arouses. Following commands. Refusing diet at the present time. On 2 L nasal cannula. 03/13: Patient reintubated last night for worsening respiratory status. Currently sedated on mechanical ventilation. Became hypotensive following intubation and is on Levophed 20 mics per minute. 03/14: Sedated, orally intubated on mech vent at the time of my evaluation this AM, subsequently underwent perc trach placement. Remains on levophed for pressor support. Transfused 1 unit PRBCs today. Persistent 03/15: Trach site clean, dry. CXR with bilateral basilar infiltrates. 03/16: Pulmonary congestion persists. Clinical condition not improving. Prognosis becoming increasingly bleak. Objective Vital Signs Date Time Temp Pulse Resp B/P (MAP) Pulse Ox O2 Delivery O2 Flow Rate FiO2 03/16/17 13:38 100 50 03/16/17 12:00 81 03/16/17 12:00 98.4 16 124/72 (89) 03/15/17 21:06 Ventilator 03/15/17 07:00 4.00 Intake and Output 03/16/17 03/16/17 03/17/17 08:00 16:00 00:00 Intake Total 1350 ml 500 ml Output Total 75 ml Balance 1275 ml 500 ml Result Diagram: 03/15/17 0419 03/15/17 0419 Imaging Last 48 hours Impressions Chest X-Ray 03/14/17 0000 Signed Impressions: Service Date/Time: Tuesday, March 14, 2017 13:41 - CONCLUSION: 1. Tracheostomy in good position. 2. Left lower lung infiltrates and left pleural effusion. Candido Patton MD Chest X-Ray 03/13/17 0000 Signed Impressions: Service Date/Time: Monday, March 13, 2017 01:52 - CONCLUSION: 1. Bibasilar densities. 2. Endotracheal tube tip not well-seen but appears to be in good position. Armando Dodd MD Last Impressions Chest X-Ray 03/11/17 0600 Signed Impressions: Service Date/Time: Saturday, March 11, 2017 05:10 - CONCLUSION: 1. No significant change in the bibasilar densities. 2. Small left effusion. Benjamin Person MD Aortography 02/28/17 0000 Signed Impressions: Service Date/Time: Tuesday, February 28, 2017 08:01 - CONCLUSION: 1. Active hemorrhage from distal right lateral sacral and iliolumbar branches successfully coil and Gelfoam embolized, as above. Juan Bhakta MD Abdomen/Pelvis CT 02/28/17 0000 Signed Impressions: Service Date/Time: Tuesday, February 28, 2017 06:51 - CONCLUSION: 1. The right retroperitoneal hematoma has increased in size, as above. There are 2 serpiginous arterially enhancing structures visualized, one in the right psoas muscle and another extending into the hematoma at the right iliac fossa. These could represent sites of continued active bleeding. 2. Stable moderate size left and small right pleural effusion with associated compressive atelectasis. 3. Stable small volume of free fluid in the abdomen and pelvis. There is also anasarca. The findings concerning the retroperitoneal hematoma were discussed with Dr. Aguiar via telephone at approximately 7: 10 AM on 02/28/2017. Angelo Allen MD Chest CT 02/27/17 0000 Signed Impressions: Service Date/Time: Monday, February 27, 2017 18:12 - CONCLUSION: 1. Bilateral pleural effusions with bibasilar atelectasis, left greater than right. Tom J. Siragusa, MD Abdomen X-Ray 02/26/17 Signed Impressions: Service Date/Time: Sunday, February 26, 2017 14:52 - CONCLUSION: 1. Nonobstructive bowel gas pattern. Juan Bhakta MD Upper Extremity Ultrasound 02/10/17 Signed Impressions: Service Date/Time: Friday, February 10, 2017 18:46 - CONCLUSION: Occlusive thrombus in the cephalic and basilic veins. Benjamin Person MD Lung Scan-V Nuclear Medicine 02/10/17 Signed Impressions: Service Date/Time: Friday, February 10, 2017 22:17 - CONCLUSION: Low probability pulmonary embolism. Candido Patton MD Head CT 02/10/17 Signed Impressions: Service Date/Time: Friday, February 10, 2017 23:51 - CONCLUSION: Negative noncontrast CT brain. Candido Patton MD Wrist X-Ray 02/06/17 Signed Impressions: Service Date/Time: Monday, February 06, 2017 12:50 - CONCLUSION: Minimally displaced distal radius and ulnar fractures. Armando Dodd MD Lumbar Puncture Fluoroscopy 02/01/17 0000 Signed Impressions: Service Date/Time: January 09:35 - CONCLUSION: Uncomplicated fluoroscopically guided lumbar puncture. CSF was clear. Nabeel Peralta MD Head Magnetic Resonance Angiography 01/27/17 Signed Impressions: Service Date/Time: Friday, January 27, 2017 10:33 - CONCLUSION: No intracranial vascular abnormality is identified. There is no aneurysm visualized. Angelo Allen MD IVC Filter Placement X-Ray 01/25/17 Signed Impressions: Service Date/Time: January 10:29 - CONCLUSION: Uncomplicated inferior vena cava filter placement as above. Yung Fowler MD Thoracic Spine MRI 01/24/17 0000 Signed Impressions: Service Date/Time: Tuesday, January 24, 2017 22:29 - CONCLUSION: 1. Mild degenerative spondylosis most prominently at T11-L1 with slight effacement of the anterior thecal sac and left lateral recess. No significant neural foraminal stenosis. 2. No acute fracture. Juan Bhakta MD Renal Ultrasound 01/23/17 Signed Impressions: Service Date/Time: Monday, January 23, 2017 08:53 - CONCLUSION: 1. Evidence of chronic parenchymal disease of both kidneys. No obstructive uropathy or other acute abnormality demonstrated. 2. Trace ascites, nonspecific. Angelo Garrido MD Lumbar Spine MRI 01/23/17 Signed Impressions: Service Date/Time: Monday, January 23, 2017 17:01 - CONCLUSION: 1. At L4-5 is a broad-based disc protrusion with severe central canal and lateral recess stenosis and flattening of the exiting right L4 nerve root. 2. L5-S1 there is a disc protrusion and moderate stenosis with flattening of the exiting L5 nerve roots bilaterally. 3. At L3-4 there is a moderate to severe central stenosis and lateral recess stenosis with mild foraminal stenosis. 4. No acute fracture or spondylolisthesis. Trace Holloway MD Lower Extremity Ultrasound 01/23/17 Signed Impressions: Service Date/Time: Monday, January 23, 2017 09:53 - CONCLUSION: Bilateral focal lower extremity DVT involving the posterior tibial veins. Angelo Garrido MD Cervical Spine MRI 01/23/17 Signed Impressions: Service Date/Time: Monday, January 23, 2017 17:01 - CONCLUSION: 1. Multilevel cervical spine degenerative changes as above. 2. Mild degrees of spinal stenosis at C3/C4-C6/C7. No cord compression or cord signal abnormality. 3. Age indeterminate left paracentral/foraminal disc protrusion at C6/C7. 4. Multilevel foraminal stenosis, most severe on the left at C6/C7. Please see individual levels above. 5. No fracture or subluxation of the cervical spine. Angelo Garrido MD Brain MRI 01/23/17 Signed Impressions: Service Date/Time: Monday, January 23, 2017 17:01 - CONCLUSION: 1. No acute stroke or other acute intracranial abnormality demonstrated. 2. Moderate severity chronic white matter changes, nonspecific but most likely related to chronic small vessel disease. 3. Few scattered tiny lacunar infarcts of the brainstem. 4. Given the findings are not entirely specific, clinical evaluation for possible multiple sclerosis recommended. Angelo Garrido MD Knee X-Ray 01/22/172053 Signed Impressions: Service Date/Time: Sunday, January 22, 2017 21:17 - CONCLUSION: 1. Evidence of moderate to large joint effusion. 2. No acute fracture or malalignment. 3. Mild 3 compartment osteoarthritic change. Benjamin Person MD Hip and Pelvis X-Ray [id number]/22/172053 Signed Impressions: Service Date/Time: Sunday, January 22, 2017 21:10 - CONCLUSION: 1. Mild to moderate degenerative change of both hips with no acute fracture or malalignment. There is flattening and remodeling of the right humeral head. Benjamin Person MD Objective Remarks GENERAL: 62-year-old male, resting in bed, intubated tracheally, on mechanical ventilation HEENT: Normocephalic. Atraumatic. Pupils equal, round, reactive. NECK: Trachea is midline. Obese. Right IJ TLC, left IJ hemodialysis catheter clean dry and intact CHEST: Orally intubated on mechanical ventilation, air entry decreased bilaterally at bases, scattered rhonchi bilaterally, no wheezing CARDIOVASCULAR: tachy, RR. S1, S2. No S4 without murmur. No JVD. ABDOMEN distended. No rigidity. Umbilical hernia is reducible. No guarding. : Positive scrotal edema MUSCULOSKELETAL: Pulses 2+. 1+ bilateral upper and lower extremity edema. Wound VAC on left upper extremity NEUROLOGICAL: Minimally sedated, orally intubated on mechanical ventilation. Moves 4 limbs weakly. Procedures IVC filter placement 01/25/2017 LP 01/26/2017 Date of Insertion: Mar 03, 2017 Line: Central Venous Catheter Side: Right Location: Internal, Jugular A/P Problem List: (1) Septic shock ICD Code: A41.9 - Sepsis, unspecified organism; R65.21 - Severe sepsis with septic shock Status: Acute (2) Acute respiratory failure ICD Code: J96.00 - Acute respiratory failure, unspecified whether with hypoxia or hypercapnia Status: Acute (3) Thrombophlebitis arm ICD Code: I80.8 - Phlebitis and thrombophlebitis of other sites (4) Aspiration pneumonia ICD Code: J69.0 - Pneumonitis due to inhalation of food and vomit Status: Acute (5) Atelectasis of left lung ICD Code: J98.11 - Atelectasis Status: Acute (6) Quadriparesis ICD Code: G82.50 - Quadriplegia, unspecified Status: Acute (7) DVT (deep venous thrombosis) ICD Code: I82.409 - Acute embolism and thrombosis of unspecified deep veins of unspecified lower extremity (8) Altered mental status ICD Code: R41.82 - Altered mental status, unspecified Status: Acute (9) CKD (chronic kidney disease) stage 3, GFR 30-59 ml/min ICD Code: N18.3 - Chronic kidney disease, stage 3 (moderate) Status: Chronic (10) Acute renal failure ICD Code: N17.9 - Acute kidney failure, unspecified Status: Acute (11) Diabetes mellitus ICD Code: E11.9 - Type 2 diabetes mellitus without complications Status: Chronic (12) Distal end of ulna fracture, closed ICD Code: S52.609A - Unspecified fracture of lower end of unspecified ulna, initial encounter for closed fracture Status: Acute (13) Gout ICD Code: M10.9 - Gout, unspecified Status: Chronic Assessment and Plan NEURO/PSYCH: Acute metabolic encephalopathy- persistent Quadriparesis secondary to suspected transverse myelitis Recurrent falls Pain secondary to retroperitoneal hematoma. Suspected transverse myelitis. Received methylprednisolone 250 mg IV every 6 hours 01/27-02/02, started back on hydrocortisone 02/21/17, initially tapering to 50 mg IV every 8 hours starting received 1 dose at 2100 prior to becoming hypotensive. weaning hydrocortisone taper and stopped 03/09. Resumed hydrocortisone 50mg IV Q6hrly on 03/14 as patient became hypotensive following intubation on 03/13 requiring levophed. LP 01/26 and 02/01. CSF culture negative 01/26, 02/01 Oligoclonal bands negative. CSF/serum IgG index is not elevated. VDRL nonreactive. Cryptococcal antigen negative. Brain MRI 01/23 no acute stroke. Few scattered lacunar infarcts of the brainstem. Moderate chronic white matter changes. MRI cervical/thoracic spine- mild spinal stenosis C3/C4 to C6/C7. No cord compression. RPR negative Neurology has been following, Dr. Crenshaw. Repeat CT brain 02/10 - negative Started on fentanyl and Versed drips following intubation on 03/13 for analgesia /sedation. Continue PT/OT RESP: Acute hypoxemic respiratory failure Healthcare associated pneumonia/Aspiration Pneumonia Right-sided chest tube placed for pleural effusion. continue mechanical ventilation, vent bundle, Albuterol/ipratropium aerosols every 6 hours with albuterol aerosols every 2 hours prn VQ scan 02/10 low probability for PE. CT chest 02/10 - left lower lobe collapse and consolidation. CT chest 02/27 revealed right greater than left pleural effusions. Extubated 02/23. Intubated 02/28. Extubated 03/11, Reintubated on 03/13. Right-sided chest tube placement 02/28 machine overhauler, removed 03/05. Failed attempt to wean successfully due to volume overload and multiple organ failure. underwent perc tracheostomy 03/14. CV: Severe sepsis - resolved. Systolic heart failure likely chronic with ejection fraction 20-25% Hyperlipidemia History of hypertension Mild TR Sinus tachycardia Elevated troponin likely type II demand ischemia Restarted on Levophed on 03/09 for following intubation, currently on 10 mics per minute. Started hydrocortisone stress dose on 03/14 (as patient has been on steroids and was just tapered off on 03/09.) Holding beta yani and amlodipine in light of hypotension. atorvastatin 10 mg by mouth daily for dyslipidemia. Troponin 0.[address]-T changes. 2-D echocardiogram 01/11 revealed EF 20-25%. Mild TR. Pulmonary arterial pressures were normal around 20 Troponin 6.55 on 03/02 and trending downward. Likely will need stress test of heart once stable. Cannot anticoagulate due to retroperitoneal hematoma at the present time Currently on furosemide 40 mg IV twice a day per nephrology. GI: Large right retroperitoneal hematoma Erosive esophagitis Adematous/hyperplastic colon polyps Severe acute protein calorie malnutrition Nausea/vomiting - resolved. Diarrhea Gastritis Diverticulosis Internal and external hemorrhoids Hiatal hernia Elevated lipase 02/27 CT chest/abdomen and pelvis - 9.4 x 7.5 renal and 16 x 12 cm right psoas muscle hematoma. Fluid around liver and spleen. Right-sided nephrolithiasis CTA abdomen 02/28 - possible blushing around iliac/lumbar vessels Discussed with IR. s/p attempted embolization CT abdomen and pelvis 02/10 atrophic left kidney. Bilateral inguinal hernias fat- containing. Nonobstructing 12 mm right kidney stone repeat CT abd/pelvis did not show evidence of obstruction. patient clinically has been having diarrhea (c. diff negative 02/19). also with nausea/vomiting of unclear etiology. EGD/Colonoscopy-02/22/17 showed gastritis esophagitis, hiatal hernia, diverticulosis and multiple polyps in descending colon and sigmoid which were snared biopsied. Biopsy pending Dr. Lewis consulted for intervention if needed for elevated IAP. will continue to check as needed Previously on on tube feeds with Nepro, held for trach. Will consult GI for PEG. Lansoprazole for GI prophylaxis FEN/RENAL: Acute kidney injury in the setting of Chronic kidney disease stage 3-4 History of uric acid kidney stones with prior stent BPH Nonfunctioning left kidney Acute intravascular volume overload Hypernatremia Hypophosphatemia Sloan placed due to urinary retention and worsening creatinine. Monitor intake and output q1hr. Monitor electrolytes. RIOS/SPEP negative. 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 Recommended nephrostomy tube if obstruction Nephrology consulted, hemodialysis per nephrology. Due to acute illness holding tamsulosin 0.4 mg by mouth daily for BPH Free water 200 mL q4h for hypernatremia ICU electrolyte replacement protocol ID: Septic shock- resolved. Abscess and Suppurative thrombophlebitis left upper extremity MSSA bacteremia Klebsiella UTI ESBL positive Acute aspiration pneumonia/HCAP Broad-spectrum antibiotics with oxacillin 2 g IV every 4 hours till March 26 initially. This is been held in light of current change to regimen to fluconazole, ertapenem and vancomycin intermittently dosed per ID. Added sulfamethoxazole/ trimethoprim 4 mg/80 mg 1 tablet twice a day today 03/11 for sternotrophomonas in sputum per infectious disease Blood cultures 2, UA ESBL positive Klebsiella UTI Sputum 03/14 - Pseudomonas Repeat blood cultures 2 and sputum 03/08 pending. Urine negative. ID on board. HEME: Acute blood loss anemia DVT, bilateral posterior tibial vein, IVC filter Septic thrombophlebitis with occlusive thrombus mid cephalic and basilic vein side Received 10 PRBC, 14 FFP, 2 platelets, 1 cryo-02/28 Past 24 hours received 3 units PRBCs Serial hemoglobins every 6 hours Recheck coags Ultrasound 01/23/17 - Bilateral lower extremity with occlusive posterior tibial vein DVTs. Heparin was initially started for DVT but was placed on hold due to LP with suspected traumatic tap. Currently holding full anticoagulation with enoxaparin 100 mg IV twice a day due to anemia as of 02/26 IVC filter was placed 01/25/17. Ultrasound LUE 02/10 occlusive thrombus mid cephalic vein, basilic vein.s. Transfuse 3 units PRBCs 02/27 Transfuse 2 units PRBCs 03/01. transfused 1 unit PRBCs on 03/14 ENDO: Diabetes mellitus Hypoglycemia History of prior adrenal insufficiency with shock Gout EGD colonoscopy completed 02/22. gastritis and esophagitis, colon polyps Started Hydrocortisone 100 mg every 8 hours 02/21/17 (Recent high dose steroids use now hypotensive, hypoglycemic), start steroid taper. Currently at 50 twice a day Accu-Cheks to maintain euglycemia Novulin R every 4 hours. Insulin detemir 5 units twice a day/hold in view. MSK: Right distal ulna fracture. Dr. Nathan with orthopedics has evaluated and recommended nonoperative management. Right wrist splint in place. PROPH: Lansoprazole 30 mg twice a day twice a day for stress ulcer prophylaxis. Has IVC filter. Therapeutic enoxaparin currently on hold for retroperitoneal hematoma ACCESS: right IJ CVL placed 03/03. A left IJ hemodialysis catheter placed 03/01. Left femoral A line placed 03/14 Overall impression: Patient remains critically ill with worsening respiratory failure requiring reintubation and hypotension requiring Levophed. Tracheostomy placed for comfort. Palliative care to assist with deciding goals of therapy. Critical care time 43 minutes excluding procedures Problem Qualifiers (1) Aspiration pneumonia: (2) DVT (deep venous thrombosis): Qualified Codes: I82.443 - Acute embolism and thrombosis of tibial vein, bilateral (3) Acute renal failure: Qualified Codes: N17.9 - Acute kidney failure, unspecified (4) Diabetes mellitus: (5) Gout: Nic West MD Mar 16, 2017 15:58
[2017-03-16] MEDS: RESP: ALBUTEROL 2.5 MG/3 ML NEB (PRN) NEB (20:41)
[2017-03-16] MEDS: ATORVASTATIN 10 MG TAB PO SCH (20:55)
[2017-03-17] VITALS (18 sets, daily range): BP systolic 112–173; BP diastolic 68–91; PULSE 83–100; RESP 16–20; TEMP 97.1–98; O2SAT 97–100
[2017-03-17] MEDS: oxyCODONE HCL ORAL CONC 5 MG/0.25 ML SYRINGE PO SCH ×6 (02:17→21:12)
[2017-03-17] MEDS: INSULIN NovoLIN REGULAR SUPPLEMENTAL SCALE SQ SCH ×7 (04:00→23:38)
[2017-03-17 04:05] LABS: AUTOMATED NEUTROPHIL # 7.8 TH/MM3 (1.8-7.7); BASOPHIL % 0.4 % (0.0-2.0); HEMO FLAGS DIFF FINAL; LYMPH % 1.7 % (9.0-44.0); LYMPHOCYTE # 0.1 TH/MM3 (1.0-4.8); MEAN CELL VOLUME 88.2 FL (80.0-100.0); MEAN CORPUSCULAR HEMOGLOBIN 29.4 PG (27.0-34.0); MEAN CORPUSCULAR HGB CONC 33.3 % (32.0-36.0); MONO % 3.6 % (0.0-8.0); NEUT % 94.3 % (16.0-70.0); PLATELET COUNT 210 TH/MM3 (150-450); RED BLOOD COUNT 2.72 MIL/MM3 (4.50-5.90); RED CELL DISTRIBUTION WIDTH 16.3 % (11.6-17.2); WHITE BLOOD COUNT 8.2 TH/MM3 (4.0-11.0)
[2017-03-17 04:30] LABS: BICARBONATE 19.6 MEQ/L (21.0-32.0); POTASSIUM 3.3 MEQ/L (3.5-5.1)
[2017-03-17] MEDS: METOCLOPRAMIDE HCL 10 MG/2 ML VIAL IV PUSH SCH ×3 (05:30→21:13)
[2017-03-17] MEDS: HYDROCORTISONE SOD SUCCINATE 100 MG VIAL IV PUSH SCH ×4 (05:30→23:38)
[2017-03-17] MEDS: MEROPENEM INJ 500 MG in SODIUM CHLORIDE 0.9% INJ 100 ML IV SCH ×3 (08:00→23:38)
[2017-03-17] MEDS: SODIUM CHLORIDE 0.9% FLUSH 10 ML FLUSH IV FLUSH SCH ×3 (08:01→20:18)
[2017-03-17] MEDS: CHLORHEXIDINE 0.12% (ORAL KIT) 15 ML CUP MT SCH ×2 (08:02→20:08)
[2017-03-17] MEDS: LACTOBACILLUS ACIDOPHILUS TAB PO SCH ×3 (08:33→17:59)
[2017-03-17] MEDS: LANSOPRAZOLE SOLUTAB 30 MG TAB NG SCH ×2 (08:33→20:17)
[2017-03-17] MEDS: SULFAMETHOXAZOLE-TRIMETHOPRIM 400-80 MG TAB PO SCH ×2 (08:33→20:17)
[2017-03-17] MEDS: FUROSEMIDE 40 MG/4 ML VIAL IV PUSH SCH ×2 (08:33→17:59)
[2017-03-17] MEDS: INSULIN DETEMIR 100 UNITS/ML VIAL SQ SCH ×2 (08:34→20:04)
[2017-03-17] MEDS: HEPARIN SODIUM - IV 10,000 UNITS/10 ML VIAL PRN (08:42)
[2017-03-17] MEDS: SODIUM CHLOR 0.9% 1000 ML INJ 1,000 ML OTHER PRN (08:43)
[2017-03-17] MEDS: GENTAMICIN SULFATE (DIALYSIS USE ONLY) 20 MG/2 ML VIAL OTHER PRN (08:44)
--- NOTE | 2017-03-17 11:26 | HHI.NPPN ---
Subjective History of Present Illness 61-year-old with history of urinary stone Additional Remarks Patient had trach on vent Review of Systems General Constitutional: Fatigue Objective Data Data 03/17/17 03/18/17 19:00 07:00 Output Total 2500 ml Balance -2500 ml Hemodialysis 2500 ml Vital Signs Date Time Temp Pulse Resp B/P (MAP) Pulse Ox O2 Delivery O2 Flow Rate FiO2 03/17/17 06:00 91 03/17/17 04:30 98.0 94 16 124/72 (89) 100 154/77 (102) 03/17/17 04:00 40 03/17/17 04:00 92 03/17/17 03:55 100 40 03/17/17 02:00 83 03/17/17 00:00 89 03/17/17 00:00 40 03/17/17 00:00 98.0 89 16 112/68 (83) 99 03/16/17 22:59 99 40 03/16/17 22:00 84 03/16/17 20:43 97 45 03/16/17 20:00 45 03/16/17 20:00 98.4 80 16 124/75 (91) 97 03/16/17 18:06 88 03/16/17 16:10 98 50 03/16/17 16:00 50 03/16/17 16:00 87 03/16/17 16:00 98.2 87 17 123/72 (89) 100 03/16/17 13:38 100 50 03/16/17 12:00 50 03/16/17 12:00 81 03/16/17 12:00 98.4 80 16 124/72 (89) 100 -: 03/17/17 0353 03/17/17 0353 Physical Exam General Appearance: Pale Eyes Eye Exam: Pupils Equal Throat Throat Exam: Oral Mucosa [place] & Moist Neck Neck Exam: Neck Supple Pulmonary Resp Exam: Rhonchi, Decreased Bases, Diminished Breath Sounds Cardiology CV Exam: Normal Sinus Rhythm Gastrointestinal/Abdomen GI Exam: Non-Tender, Distended Extremeties Extremities Exam: Pitting Edema, Dependent Edema Neurologic Neuro Exam: Awake Assessment/Plan Problem List: (1) Acute renal failure ICD Codes: N17.9 - Acute kidney failure, unspecified Status: Acute Plan: Patient developed Hypotension,sepsis staph aureus respiratory failure and increase WBC. Had aspiration pneumonia, developed sepsis with ARF again creatinine declined slightly post hydration he also had retroperitoneal bleed Elevated intra abdominal pressures - improved now. 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 He was tried on sodium modeling and hemodialysis combined with ultrafiltration hemodialysis progress noted UF 2.5 L 4 K FiO2 inc to 40% Anemia give Procrit 20 k sq then 10 k with each dialysis He has generalized anasarca kcl 10 meq x1 for low potassium of 3.3 On ventilator s/p Trach Prognosis guarded (2) CKD (chronic kidney disease) stage 3, GFR 30-59 ml/min ICD Codes: N18.3 - Chronic kidney disease, stage 3 (moderate) Status: Chronic Plan: Ultrasound revealed chronic kidney disease there is no kidney stones (3) Diabetes ICD Codes: E11.9 - Type 2 diabetes mellitus without complications Plan: Continue to monitor (4) Distal end of ulna fracture, closed ICD Codes: S52.609A - Unspecified fracture of lower end of unspecified ulna, initial encounter for closed fracture Status: Acute Plan: Orthopedic is following Problem Qualifiers (1) Acute renal failure: Qualified Codes: N17.9 - Acute kidney failure, unspecified Laura Liao MD Mar 17, 2017 11:26
[2017-03-17] MEDS ORDERED: POTASSIUM CHLOR 10 MEQ PREMIX 100 ML IV ONE (11:30)
[2017-03-17] MEDS ORDERED: EPOETIN ALFA 20,000 UNITS/ML VIAL SQ ONE (11:30)
[2017-03-17] MEDS ORDERED: EPOETIN ALFA 10,000 UNITS/ML VIAL IV PUSH PRN (11:30)
[2017-03-17] MEDS: SODIUM CHLOR 0.9% 1000 ML INJ 1,000 ML IV SCH (12:14)
[2017-03-17] MEDS: LABETALOL HCL 100 MG/20 ML VIAL IV PRN (12:25)
[2017-03-17] MEDS: ATENOLOL 25 MG TAB PO SCH ×2 (12:47→20:16)
[2017-03-17] MEDS: ATORVASTATIN 10 MG TAB PO SCH (20:17)
[2017-03-18] VITALS (17 sets, daily range): BP systolic 106–142; BP diastolic 58–80; PULSE 94–104; RESP 16–26; TEMP 98–100.2; O2SAT 95–99
[2017-03-18] MEDS: oxyCODONE HCL ORAL CONC 5 MG/0.25 ML SYRINGE PO SCH ×5 (04:56→21:11)
[2017-03-18] MEDS: HYDROCORTISONE SOD SUCCINATE 100 MG VIAL IV PUSH SCH ×3 (04:56→17:04)
[2017-03-18] MEDS: METOCLOPRAMIDE HCL 10 MG/2 ML VIAL IV PUSH SCH ×3 (04:57→21:11)
[2017-03-18] MEDS: INSULIN NovoLIN REGULAR SUPPLEMENTAL SCALE SQ SCH ×5 (05:03→20:48)
[2017-03-18 06:50] LABS: AUTOMATED NEUTROPHIL # 8.6 TH/MM3 (1.8-7.7); BASOPHIL % 0.3 % (0.0-2.0); EOSINOPHIL % 0.2 % (0.0-4.0); HEMATOCRIT 26.3 % (39.0-51.0); HEMO FLAGS DIFF FINAL; LYMPH % 4.6 % (9.0-44.0); LYMPHOCYTE # 0.4 TH/MM3 (1.0-4.8); MEAN CELL VOLUME 87.1 FL (80.0-100.0); MEAN CORPUSCULAR HEMOGLOBIN 29.6 PG (27.0-34.0); MONO % 6.7 % (0.0-8.0); NEUT % 88.2 % (16.0-70.0); PLATELET COUNT 238 TH/MM3 (150-450); RED BLOOD COUNT 3.02 MIL/MM3 (4.50-5.90); RED CELL DISTRIBUTION WIDTH 15.8 % (11.6-17.2); WHITE BLOOD COUNT 9.8 TH/MM3 (4.0-11.0)
[2017-03-18 07:19] LABS: BICARBONATE 25.1 MEQ/L (21.0-32.0); POTASSIUM 3.1 MEQ/L (3.5-5.1)
[2017-03-18] MEDS: CHLORHEXIDINE 0.12% (ORAL KIT) 15 ML CUP MT SCH ×2 (08:00→20:47)
[2017-03-18] MEDS: SODIUM CHLORIDE 0.9% FLUSH 10 ML FLUSH IV FLUSH SCH ×3 (08:04→20:48)
[2017-03-18] MEDS: MEROPENEM INJ 500 MG in SODIUM CHLORIDE 0.9% INJ 100 ML IV SCH ×2 (08:14→17:10)
[2017-03-18] MEDS: LACTOBACILLUS ACIDOPHILUS TAB PO SCH ×3 (08:16→17:05)
[2017-03-18] MEDS: ATENOLOL 25 MG TAB PO SCH ×2 (08:16→20:50)
[2017-03-18] MEDS: SULFAMETHOXAZOLE-TRIMETHOPRIM 400-80 MG TAB PO SCH (08:16)
[2017-03-18] MEDS: INSULIN DETEMIR 100 UNITS/ML VIAL SQ SCH ×2 (08:17→20:49)
[2017-03-18] MEDS: FUROSEMIDE 40 MG/4 ML VIAL IV PUSH SCH ×2 (08:17→17:05)
[2017-03-18] MEDS: LANSOPRAZOLE SOLUTAB 30 MG TAB NG SCH ×2 (08:17→20:49)
--- NOTE | 2017-03-18 09:45 | HHI.CCPN ---
Subjective Remarks/Hospital Course Date of admission: 01/22 Date of critical care medicine consult 02/10 due to acute hypoxemic respiratory failure requiring emergent intubation 62-year-old male with a past medical history of hypertension, hyperlipidemia, diabetes mellitus, gout, uric acid kidney stones, kidney disease of unknown stage who originally presented to [facility] emergency department on 01/22 after a fall in which he sustained a right distal ulna fracture. He had been experiencing a gradual primarily lower extremity weakness as well as upper extremity weakness that was progressive. Neurology consult was obtained. MRI revealed no acute stroke. He had multifocal white matter changes. Tiny lacunar infarcts of the brainstem. Lumbar MRI report states L4-L5 disc protrusion with cetnral canal stenosis. Dr. Blackwell evaluated and states no cord compression on MRI C/T spine and recommended nonoperative management. Symptoms were felt to be consistent with transverse myelitis and he underwent Solumedrol 250 mg IV q6 hours 01/27-02/02. He also was found to have occlusive thrombus in the bilateral posterior tibial veins. Heparin was being avoided because he had traumatic lumbar puncture on 01/26 and 02/01. IVC filter was placed 01/25. He was undergoing physical therapy, reportedly making some improvements with plan to eventually discharged home with his son (max assist standing, and bed to chair per PT note). Apparently he had some vomiting the evening of 02/09 and additional vomiting on 02/10. He had a fever 102.8 on 02/09. Last recorded bowel movement was 02/03. Tonight he had acute onset of severe hypoxemia and respiratory distress. [facility] called and he was brought emergently to [facility] where his sats were 64% on 100% nonrebreather with mean arterial pressure 44. He was emergently intubated, CVL and art line placed. He is in septic shock. SUBJ: 02/11: Patient remains intubated sedated, critically ill. FiO2 reduced to 80% after increasing PEEP to 12. In severe septic shock Levophed at 16 mcg/m, vasopressin at 0.04 international units. D/W vascular surgery Dr. Enciso. He performed bedside Left upper extremity incision and debridement and excision of septic cephalic vein. 02/12: Remains intubated sedated profoundly septic, in shock on vasopressin and 7 mcg/min Levophed. FiO2 has improved to 45%, WBC count remains elevated with 20 ,000 white count significant left shift. Slight improvement in creatinine 2.9 urine output 750 ml 24 hours. 2-D echo shows LV ejection fraction 20-25%, no vegetation reported. Blood cultures 4 staph aureus. Wound culture pending 02/13: Remains critically ill but stable to improving. WBC count is down to 16, creatinine improving to 2.36. Off all pressors. Urine output also improving. 1.5L in 24 hours 02/14: Extubated 02/13. Tolerating well. WBC now down to 12.8. Creat improving 2.3 to 2. UO 3.4L. remains off all pressors. Was started on Precedex yesterday night for agitation, currently on 0.5 g per KG per hour. Chest x-ray shows left more than right air space disease 02/20/17 Re consult: 62-year-old male who was originally admitted for lower extremity weakness and found to have what was thought to be possible transverse myelitis. His hospital course his included a healthcare associated pneumonia, septic thrombophlebitis, DVT. He was most recently in the hospital floor where he had significant nausea and vomiting and diarrhea. His C. difficile test was recently negative. However, he has experienced worsening acute on chronic renal failure, hypotension, tachycardia, and severe hypoxemia. He did have a bout of vomiting earlier today, and his hospitalist attending suspects that he may have aspirated. He arrives by rapid response to the ICU with a nonrebreather in place in severe respiratory distress with SPO2 of 85%. I emergently intubate the patient, see separate procedure note for details. At this point the patient was hypotensive and tachycardic. He does have a history of an EF of 20%, however clinically he appears in florid septic shock. I placed central line and arterial line started vasopressors and gentle IV fluid resuscitation with 1 L of LR. Patient today was empirically broadened to vancomycin and Zosyn from his oxacillin which was initially treating MSSA bacteremia. He is recultured. Critical-care medicine is consulted to evaluate and manage his worsening multiorgan system failure and decompensated septic shock 02/21: Patient remains intubated sedated. Becomes anxious tachypnea on sedation lightening. Chest x-ray shows mild left lower lobe infiltrate. WBC count is slightly improved today from 23.2 t0 21. C Diff negative. UO adequate, creat slightly worsening. 1.57 today 02/22: Remains intubated sedated tolerated CPAP yesterday, plan is for EGD/ Colonscopy. WBC count back to normal. UO adequate. Creat stable 02/23: Tolerating CPAP trials following commands. Will do a spontaneous breathing trials. Status post EGD colonoscopy yesterday -Gastritis, esophagitis. Diverticulosis and multiple polyps. Urine output adequate but creatinine increasing to 1.7 with patient requiring multiple straight catheterization. We'll reinsert Sloan. 02/24: Breathing comfortably 24 hours after extubation. Protects airway well. 02/25: Excoriate bottom, will place rectal FMS. Start pureed diet. 02/26: Afebrile. Complaining of nausea and vomiting this afternoon. Increased stool output. Continue potassium replacement today. 02/27: 10 PM overnight, acutely hypotensive. Received 3 units PRBCs. Antibiotic coverage broadened to piperacillin/tazobactam, cortisol and 1 dose of vancomycin. Oxacillin drip currently on hold. Symptomatically, patient continues to vague abdominal pain/nausea vomiting which is unchanged for the past several days. Lipase elevated yesterday. Lactic acid normal. Troponin normal. Urinary retention after removal of Sloan. Straight catheter 1300. Cc 02/28: New diagnosis large retroperitoneal hematoma. Received 10 PRBC, 14 FFP, 2 platelets, 1 cryo-, 6 g calcium chloride, 2 is magnesium sulfate and 4 mg Bumex. CTA abdomen revealed possible arterial bleeds iliac, lumbar. Patient is currently on norepinephrine and epinephrine drips and possible need right nephrostomy tube placement due to large hematoma compressing ureter. Intra-abdominal bladder pressures are currently 13 03/01: Afebrile. Received 25 g albumin and 1 unit PRBCs overnight. Intra- abdominal bladder pressures currently 19. Currently on 3 micrograms per minute of norepinephrine. [id number] 1 out of 4 on 4 mics grams per kilogram per minute of cisatracurium. 03/02: Slightly hypothermic overnight. Hemoglobin appears to have stabilized. Troponin bump overnight likely secondary to demand ischemia from hypotension. Hemodynamically stable off all vasopressors. 03/03: Received 1 PRBCs overnight. 3 units currently. Off all vasopressors. Likely rebleeding. Stool is dark. 03/04: Remains unstable. Ventilator dependent. 03/05: afebrile. hgb stable. 03/06: bumex drip started overnight. good uop after bumex initiated. still grossly volume overloaded. Cr downtrending. more awake with transition to propofol. still too volume overloaded to tolerate extubation. hgb stable. 03/07: Afebrile. Tolerating tube feeds at goal with Nepro. Positive BM. On low-dose fentanyl and propofol drips. Potassium currently being replaced. 03/08: Eyes will open on ventilator. Afebrile. Tolerating tube feeding. Failed PSV trial yesterday due to apnea. 03/09: Following commands. Tmax 101. Tolerating tube feeding. One hour PSV trial yesterday. Currently tolerating well so far today 1.5 hours 03/10: Low-grade temperatures. Tolerating PSV trial 10 hours yesterday. Currently at 5/5 at 35%. We'll probably attempt extubation a.m. after hemodialysis. 03/11: Extubated currently in 4 L nasal cannula. Thick secretions thick clear with cough. Currently afebrile. Tolerating diet previously. Subjective 03/12: Sleepy this morning but arouses. Following commands. Refusing diet at the present time. On 2 L nasal cannula. 03/13: Patient reintubated last night for worsening respiratory status. Currently sedated on mechanical ventilation. Became hypotensive following intubation and is on Levophed 20 mics per minute. 03/14: Sedated, orally intubated on mech vent at the time of my evaluation this AM, subsequently underwent perc trach placement. Remains on levophed for pressor support. Transfused 1 unit PRBCs today. Persistent 03/15: Trach site clean, dry. CXR with bilateral basilar infiltrates. 03/16: Pulmonary congestion persists. Clinical condition not improving. Prognosis becoming increasingly bleak. 03/17: Glucose intolerance worse. No improvement in neurological function. 03/18: Remains on mechanical ventilation via tracheostomy. Off pressors now. Neurologic status remains poor. Objective Vital Signs Date Time Temp Pulse Resp B/P (MAP) Pulse Ox O2 Delivery O2 Flow Rate FiO2 03/18/17 08:00 99.8 101 21 106/58 (74) 99 03/18/17 08:00 40 03/15/17 21:06 Ventilator 03/15/17 07:00 4.00 Intake and Output 10/03/18/17 03/19/17 08:00 16:00 00:00 Intake Total 652 ml Output Total 150 ml Balance 502 ml Result Diagram: 03/18/1762903/18/17629 Imaging Last 48 hours Impressions Chest X-Ray 03/14/17 0000 Signed Impressions: Service Date/Time: Tuesday, March 14, 2017 13:41 - CONCLUSION: 1. Tracheostomy in good position. 2. Left lower lung infiltrates and left pleural effusion. Candido Patton MD Chest X-Ray 03/13/17 0000 Signed Impressions: Service Date/Time: Monday, March 13, 2017 01:52 - CONCLUSION: 1. Bibasilar densities. 2. Endotracheal tube tip not well-seen but appears to be in good position. Armando Dodd MD Last Impressions Chest X-Ray 03/11/17 0600 Signed Impressions: Service Date/Time: Saturday, March 11, 2017 05:10 - CONCLUSION: 1. No significant change in the bibasilar densities. 2. Small left effusion. Benjamin Person MD Aortography 02/28/17 0000 Signed Impressions: Service Date/Time: Tuesday, February 28, 2017 08:01 - CONCLUSION: 1. Active hemorrhage from distal right lateral sacral and iliolumbar branches successfully coil and Gelfoam embolized, as above. Juan Bhakta MD Abdomen/Pelvis CT 02/28/17 0000 Signed Impressions: Service Date/Time: Tuesday, February 28, 2017 06:51 - CONCLUSION: 1. The right retroperitoneal hematoma has increased in size, as above. There are 2 serpiginous arterially enhancing structures visualized, one in the right psoas muscle and another extending into the hematoma at the right iliac fossa. These could represent sites of continued active bleeding. 2. Stable moderate size left and small right pleural effusion with associated compressive atelectasis. 3. Stable small volume of free fluid in the abdomen and pelvis. There is also anasarca. The findings concerning the retroperitoneal hematoma were discussed with Dr. Aguiar via telephone at approximately 7: 10 AM on 02/28/2017. Angelo Allen MD Chest CT 02/27/17 0000 Signed Impressions: Service Date/Time: Monday, February 27, 2017 18:12 - CONCLUSION: 1. Bilateral pleural effusions with bibasilar atelectasis, left greater than right. Tom Sanchez MD Abdomen X-Ray 02/26/17 Signed Impressions: Service Date/Time: Sunday, February 26, 2017 14:52 - CONCLUSION: 1. Nonobstructive bowel gas pattern. Juan Bhakta MD Upper Extremity Ultrasound 02/10/17 Signed Impressions: Service Date/Time: Friday, February 10, 2017 18:46 - CONCLUSION: Occlusive thrombus in the cephalic and basilic veins. Benjamin Person MD Lung Scan-V Nuclear Medicine 02/10/17 Signed Impressions: Service Date/Time: Friday, February 10, 2017 22:17 - CONCLUSION: Low probability pulmonary embolism. Candido Patton MD Head CT 02/10/17 Signed Impressions: Service Date/Time: Friday, February 10, 2017 23:51 - CONCLUSION: Negative noncontrast CT brain. Candido Patton MD Wrist X-Ray 02/06/17 0000 Signed Impressions: Service Date/Time: Monday, February 06, 2017 12:50 - CONCLUSION: Minimally displaced distal radius and ulnar fractures. Armando Dodd MD Lumbar Puncture Fluoroscopy 02/01/17 0000 Signed Impressions: Service Date/Time: January 09:35 - CONCLUSION: Uncomplicated fluoroscopically guided lumbar puncture. CSF was clear. Nabeel Peralta MD Head Magnetic Resonance Angiography 01/27/17 0000 Signed Impressions: Service Date/Time: Friday, January 27, 2017 10:33 - CONCLUSION: No intracranial vascular abnormality is identified. There is no aneurysm visualized. Angelo Allen MD IVC Filter Placement X-Ray 01/25/17 0000 Signed Impressions: Service Date/Time: January 10:29 - CONCLUSION: Uncomplicated inferior vena cava filter placement as above. Yung Fowler MD Thoracic Spine MRI 01/24/17 0000 Signed Impressions: Service Date/Time: Tuesday, January 24, 2017 22:29 - CONCLUSION: 1. Mild degenerative spondylosis most prominently at T11-L1 with slight effacement of the anterior thecal sac and left lateral recess. No significant neural foraminal stenosis. 2. No acute fracture. Juan Bhakta MD Renal Ultrasound 01/23/17 Signed Impressions: Service Date/Time: Monday, January 23, 2017 08:53 - CONCLUSION: 1. Evidence of chronic parenchymal disease of both kidneys. No obstructive uropathy or other acute abnormality demonstrated. 2. Trace ascites, nonspecific. Angelo Garrido MD Lumbar Spine MRI 01/23/17 Signed Impressions: Service Date/Time: Monday, January 23, 2017 17:01 - CONCLUSION: 1. At L4-5 is a broad-based disc protrusion with severe central canal and lateral recess stenosis and flattening of the exiting right L4 nerve root. 2. L5-S1 there is a disc protrusion and moderate stenosis with flattening of the exiting L5 nerve roots bilaterally. 3. At L3-4 there is a moderate to severe central stenosis and lateral recess stenosis with mild foraminal stenosis. 4. No acute fracture or spondylolisthesis. Trace Holloway MD Lower Extremity Ultrasound 01/23/17 Signed Impressions: Service Date/Time: Monday, January 23, 2017 09:53 - CONCLUSION: Bilateral focal lower extremity DVT involving the posterior tibial veins. Angelo Garrido MD Cervical Spine MRI 01/23/17 Signed Impressions: Service Date/Time: Monday, January 23, 2017 17:01 - CONCLUSION: 1. Multilevel cervical spine degenerative changes as above. 2. Mild degrees of spinal stenosis at C3/C4-C6/C7. No cord compression or cord signal abnormality. 3. Age indeterminate left paracentral/foraminal disc protrusion at C6/C7. 4. Multilevel foraminal stenosis, most severe on the left at C6/C7. Please see individual levels above. 5. No fracture or subluxation of the cervical spine. Angelo Garrido MD Brain MRI 01/23/17 Signed Impressions: Service Date/Time: Monday, January 23, 2017 17:01 - CONCLUSION: 1. No acute stroke or other acute intracranial abnormality demonstrated. 2. Moderate severity chronic white matter changes, nonspecific but most likely related to chronic small vessel disease. 3. Few scattered tiny lacunar infarcts of the brainstem. 4. Given the findings are not entirely specific, clinical evaluation for possible multiple sclerosis recommended. Angelo Garrido MD Knee X-Ray 01/22/172053 Signed Impressions: Service Date/Time: Sunday, January 22, 2017 21:17 - CONCLUSION: 1. Evidence of moderate to large joint effusion. 2. No acute fracture or malalignment. 3. Mild 3 compartment osteoarthritic change. Benjamin Person MD Hip and Pelvis X-Ray 01/22/172053 Signed Impressions: Service Date/Time: Sunday, January 22, 2017 21:10 - CONCLUSION: 1. Mild to moderate degenerative change of both hips with no acute fracture or malalignment. There is flattening and remodeling of the right humeral head. Benjamin Person MD Objective Remarks GENERAL: 62-year-old male, resting in bed, intubated tracheally, on mechanical ventilation HEENT: Normocephalic. Atraumatic. Pupils equal, round, reactive. NECK: Trachea is midline. Obese. Right IJ TLC, left IJ hemodialysis catheter clean dry and intact CHEST: Orally intubated on mechanical ventilation, air entry decreased bilaterally at bases, persistent scattered rhonchi bilaterally, no wheezing CARDIOVASCULAR: tachy, RR. S1, S2. No S4 without murmur. No JVD. ABDOMEN distended. No rigidity. Umbilical hernia is reducible. No guarding. : Positive scrotal edema MUSCULOSKELETAL: Pulses 2+. 1+ bilateral upper and lower extremity edema. Wound VAC on left upper extremity NEUROLOGICAL: Minimally sedated, orally intubated on mechanical ventilation. Moves 4 limbs weakly to stimulation. Procedures IVC filter placement 01/25/2017 LP 01/26/2017 Date of Insertion: Mar 03, 2017 Line: Central Venous Catheter Side: Right Location: Internal, Jugular A/P Problem List: (1) Septic shock ICD Code: A41.9 - Sepsis, unspecified organism; R65.21 - Severe sepsis with septic shock Status: Acute (2) Acute respiratory failure ICD Code: J96.00 - Acute respiratory failure, unspecified whether with hypoxia or hypercapnia Status: Acute (3) Thrombophlebitis arm ICD Code: I80.8 - Phlebitis and thrombophlebitis of other sites (4) Aspiration pneumonia ICD Code: J69.0 - Pneumonitis due to inhalation of food and vomit Status: Acute (5) Atelectasis of left lung ICD Code: J98.11 - Atelectasis Status: Acute (6) Quadriparesis ICD Code: G82.50 - Quadriplegia, unspecified Status: Acute (7) DVT (deep venous thrombosis) ICD Code: I82.409 - Acute embolism and thrombosis of unspecified deep veins of unspecified lower extremity (8) Altered mental status ICD Code: R41.82 - Altered mental status, unspecified Status: Acute (9) CKD (chronic kidney disease) stage 3, GFR 30-59 ml/min ICD Code: N18.3 - Chronic kidney disease, stage 3 (moderate) Status: Chronic (10) Acute renal failure ICD Code: N17.9 - Acute kidney failure, unspecified Status: Acute (11) Diabetes mellitus ICD Code: E11.9 - Type 2 diabetes mellitus without complications Status: Chronic (12) Distal end of ulna fracture, closed ICD Code: S52.609A - Unspecified fracture of lower end of unspecified ulna, initial encounter for closed fracture Status: Acute (13) Gout ICD Code: M10.9 - Gout, unspecified Status: Chronic Assessment and Plan NEURO/PSYCH: Acute metabolic encephalopathy- persistent Quadriparesis secondary to suspected transverse myelitis Recurrent falls Pain secondary to retroperitoneal hematoma. Suspected transverse myelitis. Received methylprednisolone 250 mg IV every 6 hours 01/27-02/02, started back on hydrocortisone 02/21/17, initially tapering to 50 mg IV every 8 hours starting received 1 dose at 2100 prior to becoming hypotensive. weaning hydrocortisone taper and stopped 03/09. Resumed hydrocortisone 50mg IV Q6hrly on 03/14 as patient became hypotensive following intubation on 03/13 requiring levophed. LP 01/26 and 02/01. CSF culture negative 01/26, 02/01 Oligoclonal bands negative. CSF/serum IgG index is not elevated. VDRL nonreactive. Cryptococcal antigen negative. Brain MRI 01/23 no acute stroke. Few scattered lacunar infarcts of the brainstem. Moderate chronic white matter changes. MRI cervical/thoracic spine- mild spinal stenosis C3/C4 to C6/C7. No cord compression. RPR negative Neurology has been following, Dr. Crenshaw. Repeat CT brain 02/10 - negative Started on fentanyl and Versed drips following intubation on 03/13 for analgesia /sedation. Continue PT/OT RESP: Acute hypoxemic respiratory failure Healthcare associated pneumonia/Aspiration Pneumonia Right-sided chest tube placed for pleural effusion. continue mechanical ventilation, vent bundle, Albuterol/ipratropium aerosols every 6 hours with albuterol aerosols every 2 hours prn VQ scan 02/10 low probability for PE. CT chest 02/10 - left lower lobe collapse and consolidation. CT chest 02/27 revealed right greater than left pleural effusions. Extubated 02/23. Intubated 02/28. Extubated 03/11, Reintubated on 03/13. Right-sided chest tube placement 02/28 radio adjuster, removed 03/05. Failed attempt to wean successfully due to volume overload and multiple organ failure. underwent perc tracheostomy 03/14. CV: Severe sepsis - resolved. Systolic heart failure likely chronic with ejection fraction 20-25% Hyperlipidemia History of hypertension Mild TR Sinus tachycardia Elevated troponin likely type II demand ischemia Restarted on Levophed on 03/09 for following intubation, currently on 10 mics per minute. Started hydrocortisone stress dose on 03/14 (as patient has been on steroids and was just tapered off on 03/09.) Holding beta yani and amlodipine in light of hypotension. atorvastatin 10 mg by mouth daily for dyslipidemia. Troponin 0.[address]-T changes. 2-D echocardiogram 01/11 revealed EF 20-25%. Mild TR. Pulmonary arterial pressures were normal around 20 Troponin 6.55 on 03/02 and trending downward. Likely will need stress test of heart once stable. Cannot anticoagulate due to retroperitoneal hematoma at the present time Currently on furosemide 40 mg IV twice a day per nephrology. GI: Large right retroperitoneal hematoma Erosive esophagitis Adematous/hyperplastic colon polyps Severe acute protein calorie malnutrition Nausea/vomiting - resolved. Diarrhea Gastritis Diverticulosis Internal and external hemorrhoids Hiatal hernia Elevated lipase 02/27 CT chest/abdomen and pelvis - 9.4 x 7.5 renal and 16 x 12 cm right psoas muscle hematoma. Fluid around liver and spleen. Right-sided nephrolithiasis CTA abdomen 02/28 - possible blushing around iliac/lumbar vessels Discussed with IR. s/p attempted embolization CT abdomen and pelvis 02/10 atrophic left kidney. Bilateral inguinal hernias fat- containing. Nonobstructing 12 mm right kidney stone repeat CT abd/pelvis did not show evidence of obstruction. patient clinically has been having diarrhea (c. diff negative 02/19). also with nausea/vomiting of unclear etiology. EGD/Colonoscopy-02/22/17 showed gastritis esophagitis, hiatal hernia, diverticulosis and multiple polyps in descending colon and sigmoid which were snared biopsied. Biopsy pending Dr. Lewis consulted for intervention if needed for elevated IAP. will continue to check as needed Previously on on tube feeds with Nepro, held for trach. Will consult GI for PEG. Lansoprazole for GI prophylaxis FEN/RENAL: Acute kidney injury in the setting of Chronic kidney disease stage 3-4 History of uric acid kidney stones with prior stent BPH Nonfunctioning left kidney Acute intravascular volume overload Hypernatremia Hypophosphatemia Sloan placed due to urinary retention and worsening creatinine. Monitor intake and output q1hr. Monitor electrolytes. RIOS/SPEP negative. 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 Recommended nephrostomy tube if obstruction Nephrology consulted, hemodialysis per nephrology. Due to acute illness holding tamsulosin 0.4 mg by mouth daily for BPH Free water 200 mL q4h for hypernatremia ICU electrolyte replacement protocol ID: Septic shock- resolved. Abscess and Suppurative thrombophlebitis left upper extremity MSSA bacteremia Klebsiella UTI ESBL positive Acute aspiration pneumonia/HCAP Broad-spectrum antibiotics with oxacillin 2 g IV every 4 hours till March 26 initially. This is been held in light of current change to regimen to fluconazole, ertapenem and vancomycin intermittently dosed per ID. Added sulfamethoxazole/ trimethoprim 4 mg/80 mg 1 tablet twice a day today 03/11 for sternotrophomonas in sputum per infectious disease Blood cultures 2, UA ESBL positive Klebsiella UTI Sputum 03/14 - Pseudomonas Repeat blood cultures 2 and sputum 03/08 pending. Urine negative. ID on board. HEME: Acute blood loss anemia DVT, bilateral posterior tibial vein, IVC filter Septic thrombophlebitis with occlusive thrombus mid cephalic and basilic vein side Received 10 PRBC, 14 FFP, 2 platelets, 1 cryo-02/28 Past 24 hours received 3 units PRBCs Serial hemoglobins every 6 hours Recheck coags Ultrasound 01/23/17 - Bilateral lower extremity with occlusive posterior tibial vein DVTs. Heparin was initially started for DVT but was placed on hold due to LP with suspected traumatic tap. Currently holding full anticoagulation with enoxaparin 100 mg IV twice a day due to anemia as of 02/26 IVC filter was placed 01/25/17. Ultrasound LUE 02/10 occlusive thrombus mid cephalic vein, basilic vein.s. Transfuse 3 units PRBCs 02/27 Transfuse 2 units PRBCs 03/01. transfused 1 unit PRBCs on 03/14 ENDO: Diabetes mellitus Hypoglycemia History of prior adrenal insufficiency with shock Gout EGD colonoscopy completed 02/22. gastritis and esophagitis, colon polyps Started Hydrocortisone 100 mg every 8 hours 02/21/17 (Recent high dose steroids use now hypotensive, hypoglycemic), steroids had been tapered off. Resumed stress dose steroids on 03/16 as patient back on Levophed for pressor support after intubation. Accu-Cheks to maintain euglycemia Novulin R every 4 hours. Insulin detemir 5 units twice a day/hold in view. MSK: Right distal ulna fracture. Dr. Nathan with orthopedics has evaluated and recommended nonoperative management. Right wrist splint in place. PROPH: Lansoprazole 30 mg twice a day twice a day for stress ulcer prophylaxis. Has IVC filter. Therapeutic enoxaparin currently on hold for retroperitoneal hematoma ACCESS: right IJ CVL placed 03/03. A left IJ hemodialysis catheter placed 03/01. Left femoral A line placed 03/14 Overall impression: Patient remains critically ill with worsening respiratory failure requiring reintubation; hypotension. Tracheostomy placed for comfort. Palliative care to assist with deciding goals of therapy. Prognosis poor with unstable respiratory and hemodynamics status. Critical care 30 mins Problem Qualifiers (1) Aspiration pneumonia: (2) DVT (deep venous thrombosis): Qualified Codes: I82.443 - Acute embolism and thrombosis of tibial vein, bilateral (3) Acute renal failure: Qualified Codes: N17.9 - Acute kidney failure, unspecified (4) Diabetes mellitus: (5) Gout: Devin Puente MD Mar 18, 2017 09:45
[2017-03-18] MEDS: SODIUM CHLOR 0.9% 1000 ML INJ 1,000 ML IV SCH (11:59)
--- NOTE | 2017-03-18 13:51 | HHI.NPPN ---
Subjective History of Present Illness 61-year-old with history of urinary stone Additional Remarks Patient had trach on vent Review of Systems General Constitutional: Fatigue Objective Data Data Vital Signs Date Time Temp Pulse Resp B/P (MAP) Pulse Ox O2 Delivery O2 Flow Rate FiO2 03/18/17 12:00 100.2 96 22 110/70 (83) 99 03/18/17 12:00 40 03/18/17 12:00 96 03/18/17 10:43 97 40 03/18/17 10:00 98 03/18/17 08:00 99.8 101 21 106/58 (74) 99 03/18/17 08:00 40 03/18/17 08:00 100 03/18/17 06:00 103 03/18/17 04:20 98 40 03/18/17 04:00 40 03/18/17 04:00 98 03/18/17 04:00 98.2 97 16 139/80 (99) 99 03/18/17 02:00 94 03/18/17 01:00 98 40 03/18/17 00:00 98.0 95 18 142/72 (95) 99 03/18/17 00:00 95 03/18/17 00:00 40 03/17/17 22:55 97 40 03/17/17 22:00 100 03/17/17 20:40 99 40 03/17/17 20:00 40 03/17/17 20:00 98.0 93 20 141/81 (101) 99 03/17/17 20:00 93 03/17/17 18:32 96 03/17/17 17:52 99 40 03/17/17 16:00 94 03/17/17 16:00 40 03/17/17 16:00 97.1 94 18 152/89 (110) 100 170/91 (117) 03/17/17 16:00 92 -: 03/18/17 0630 03/18/17 0630 Physical Exam General Appearance: Pale Eyes Eye Exam: Pupils Equal Throat Throat Exam: Oral Mucosa [place] & Moist Neck Neck Exam: Neck Supple Pulmonary Resp Exam: Rhonchi, Decreased Bases, Diminished Breath Sounds Cardiology CV Exam: Normal Sinus Rhythm Gastrointestinal/Abdomen GI Exam: Non-Tender, Distended Extremeties Extremities Exam: Pitting Edema, Dependent Edema Neurologic Neuro Exam: Awake Assessment/Plan Problem List: (1) Acute renal failure ICD Codes: N17.9 - Acute kidney failure, unspecified Status: Acute Plan: Patient developed Hypotension,sepsis staph aureus respiratory failure and increase WBC. Had aspiration pneumonia, developed sepsis with ARF again creatinine declined slightly post hydration he also had retroperitoneal bleed Elevated intra abdominal pressures - improved now. 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 He was tried on sodium modeling and hemodialysis combined with ultrafiltration hemodialysis yesterday 2.5 L removed Anemia give Procrit 20 k sq then 10 k with each dialysis He has generalized anasarca On ventilator s/p Trach Prognosis guarded ? consider hospice or terminologist care facility (2) CKD (chronic kidney disease) stage 3, GFR 30-59 ml/min ICD Codes: N18.3 - Chronic kidney disease, stage 3 (moderate) Status: Chronic Plan: Ultrasound revealed chronic kidney disease there is no kidney stones (3) Diabetes ICD Codes: E11.9 - Type 2 diabetes mellitus without complications Plan: Continue to monitor (4) Distal end of ulna fracture, closed ICD Codes: S52.609A - Unspecified fracture of lower end of unspecified ulna, initial encounter for closed fracture Status: Acute Plan: Orthopedic is following Problem Qualifiers (1) Acute renal failure: Qualified Codes: N17.9 - Acute kidney failure, unspecified Laura Liao MD Mar 18, 2017 13:51
[2017-03-18] MEDS: ATORVASTATIN 10 MG TAB PO SCH (20:49)
[2017-03-19] VITALS (19 sets, daily range): BP systolic 134–148; BP diastolic 72–87; PULSE 82–104; RESP 18–21; TEMP 99.2–100.4; O2SAT 96–98
[2017-03-19] MEDS: MEROPENEM INJ 500 MG in SODIUM CHLORIDE 0.9% INJ 100 ML IV SCH ×2 (00:21→08:48)
[2017-03-19] MEDS: HYDROCORTISONE SOD SUCCINATE 100 MG VIAL IV PUSH SCH ×4 (00:21→18:38)
[2017-03-19] MEDS: INSULIN NovoLIN REGULAR SUPPLEMENTAL SCALE SQ SCH ×6 (00:22→20:32)
[2017-03-19] MEDS: oxyCODONE HCL ORAL CONC 5 MG/0.25 ML SYRINGE PO SCH ×6 (02:55→22:08)
[2017-03-19 03:23] LABS: HEMATOCRIT 26.6 % (39.0-51.0); HEMO FLAGS AUTO DIFF; MEAN CELL VOLUME 87.6 FL (80.0-100.0); MEAN CORPUSCULAR HEMOGLOBIN 29.4 PG (27.0-34.0); MEAN CORPUSCULAR HGB CONC 33.5 % (32.0-36.0); PLATELET COUNT 243 TH/MM3 (150-450); RED BLOOD COUNT 3.03 MIL/MM3 (4.50-5.90); RED CELL DISTRIBUTION WIDTH 15.5 % (11.6-17.2); WHITE BLOOD COUNT 13.3 TH/MM3 (4.0-11.0)
[2017-03-19 03:53] LABS: ALKALINE PHOSPHATASE 177 U/L (45-117); ALT (GPT) 22 U/L (12-78); ANION GAP 9 MEQ/L (5-15); AST (GOT) 59 U/L (15-37); BICARBONATE 25.7 MEQ/L (21.0-32.0); BLOOD UREA NITROGEN 91 MG/DL (7-18); CHLORIDE 110 MEQ/L (98-107); GLOMERULAR FILTRATION RATE 29 ML/MIN (>89); SODIUM (NA) 145 MEQ/L (136-145); TOTAL BILIRUBIN ADULT 0.6 MG/DL (0.2-1.0)
[2017-03-19 04:31] LABS: BANDS 18 % (0-6); METAMYELOCYTES 2 % (0-1); NEUTROPHIL # MANUAL DIFF 12.8 TH/MM3 (1.8-7.7); POLYS (SEG NEUTROPHILS) 76 % (16-70); SCAN/DIFF FINAL DIFF MANUAL; WBC DIFF SAMPLE 100
[2017-03-19 04:33] LABS: PLATELET ESTIMATE SMEAR NORMAL (NORMAL); PLATELET MORPHOLOGY NORMAL (NORMAL); TOXIC GRANULATION 1+ (NORMAL)
[2017-03-19] MEDS: METOCLOPRAMIDE HCL 10 MG/2 ML VIAL IV PUSH SCH ×3 (05:28→22:08)
[2017-03-19] MEDS: FUROSEMIDE 40 MG/4 ML VIAL IV PUSH SCH ×2 (08:49→18:38)
[2017-03-19] MEDS: LACTOBACILLUS ACIDOPHILUS TAB PO SCH ×3 (08:50→18:38)
[2017-03-19] MEDS: INSULIN DETEMIR 100 UNITS/ML VIAL SQ SCH ×3 (08:50→20:33)
[2017-03-19] MEDS: SODIUM CHLORIDE 0.9% FLUSH 10 ML FLUSH IV FLUSH SCH ×3 (08:50→20:32)
[2017-03-19] MEDS: LANSOPRAZOLE SOLUTAB 30 MG TAB NG SCH ×2 (08:50→20:32)
[2017-03-19] MEDS: CHLORHEXIDINE 0.12% (ORAL KIT) 15 ML CUP MT SCH ×2 (08:51→20:32)
--- NOTE | 2017-03-19 08:57 | HHI.CCPN ---
Subjective Remarks/Hospital Course Date of admission: 01/22 Date of critical care medicine consult 02/10 due to acute hypoxemic respiratory failure requiring emergent intubation 62-year-old male with a past medical history of hypertension, hyperlipidemia, diabetes mellitus, gout, uric acid kidney stones, kidney disease of unknown stage who originally presented to [facility] emergency department on 01/22 after a fall in which he sustained a right distal ulna fracture. He had been experiencing a gradual primarily lower extremity weakness as well as upper extremity weakness that was progressive. Neurology consult was obtained. MRI revealed no acute stroke. He had multifocal white matter changes. Tiny lacunar infarcts of the brainstem. Lumbar MRI report states L4-L5 disc protrusion with cetnral canal stenosis. Dr. Blackwell evaluated and states no cord compression on MRI C/T spine and recommended nonoperative management. Symptoms were felt to be consistent with transverse myelitis and he underwent Solumedrol 250 mg IV q6 hours 01/27-02/02. He also was found to have occlusive thrombus in the bilateral posterior tibial veins. Heparin was being avoided because he had traumatic lumbar puncture on 01/26 and 02/01. IVC filter was placed 01/25. He was undergoing physical therapy, reportedly making some improvements with plan to eventually discharged home with his son (max assist standing, and bed to chair per PT note). Apparently he had some vomiting the evening of 02/09 and additional vomiting on 02/10. He had a fever 102.8 on 02/09. Last recorded bowel movement was 02/03. Tonight he had acute onset of severe hypoxemia and respiratory distress. [facility] called and he was brought emergently to [facility] where his sats were 64% on 100% nonrebreather with mean arterial pressure 44. He was emergently intubated, CVL and art line placed. He is in septic shock. SUBJ: 02/11: Patient remains intubated sedated, critically ill. FiO2 reduced to 80% after increasing PEEP to 12. In severe septic shock Levophed at 16 mcg/m, vasopressin at 0.04 international units. D/W vascular surgery Dr. Enciso. He performed bedside Left upper extremity incision and debridement and excision of septic cephalic vein. 02/12: Remains intubated sedated profoundly septic, in shock on vasopressin and 7 mcg/min Levophed. FiO2 has improved to 45%, WBC count remains elevated with 20 ,000 white count significant left shift. Slight improvement in creatinine 2.9 urine output 750 ml 24 hours. 2-D echo shows LV ejection fraction 20-25%, no vegetation reported. Blood cultures 4 staph aureus. Wound culture pending 02/13: Remains critically ill but stable to improving. WBC count is down to 16, creatinine improving to 2.36. Off all pressors. Urine output also improving. 1.5L in 24 hours 02/14: Extubated 02/13. Tolerating well. WBC now down to 12.8. Creat improving 2.3 to 2. UO 3.4L. remains off all pressors. Was started on Precedex yesterday night for agitation, currently on 0.5 g per KG per hour. Chest x-ray shows left more than right air space disease 02/20/17 Re consult: 62-year-old male who was originally admitted for lower extremity weakness and found to have what was thought to be possible transverse myelitis. His hospital course his included a healthcare associated pneumonia, septic thrombophlebitis, DVT. He was most recently in the hospital floor where he had significant nausea and vomiting and diarrhea. His C. difficile test was recently negative. However, he has experienced worsening acute on chronic renal failure, hypotension, tachycardia, and severe hypoxemia. He did have a bout of vomiting earlier today, and his hospitalist attending suspects that he may have aspirated. He arrives by rapid response to the ICU with a nonrebreather in place in severe respiratory distress with SPO2 of 85%. I emergently intubate the patient, see separate procedure note for details. At this point the patient was hypotensive and tachycardic. He does have a history of an EF of 20%, however clinically he appears in florid septic shock. I placed central line and arterial line started vasopressors and gentle IV fluid resuscitation with 1 L of LR. Patient today was empirically broadened to vancomycin and Zosyn from his oxacillin which was initially treating MSSA bacteremia. He is recultured. Critical-care medicine is consulted to evaluate and manage his worsening multiorgan system failure and decompensated septic shock 02/21: Patient remains intubated sedated. Becomes anxious tachypnea on sedation lightening. Chest x-ray shows mild left lower lobe infiltrate. WBC count is slightly improved today from 23.2 t0 21. C Diff negative. UO adequate, creat slightly worsening. 1.57 today 02/22: Remains intubated sedated tolerated CPAP yesterday, plan is for EGD/ Colonscopy. WBC count back to normal. UO adequate. Creat stable 02/23: Tolerating CPAP trials following commands. Will do a spontaneous breathing trials. Status post EGD colonoscopy yesterday -Gastritis, esophagitis. Diverticulosis and multiple polyps. Urine output adequate but creatinine increasing to 1.7 with patient requiring multiple straight catheterization. We'll reinsert Sloan. 02/24: Breathing comfortably 24 hours after extubation. Protects airway well. 02/25: Excoriate bottom, will place rectal FMS. Start pureed diet. 02/26: Afebrile. Complaining of nausea and vomiting this afternoon. Increased stool output. Continue potassium replacement today. 02/27: 10 PM overnight, acutely hypotensive. Received 3 units PRBCs. Antibiotic coverage broadened to piperacillin/tazobactam, cortisol and 1 dose of vancomycin. Oxacillin drip currently on hold. Symptomatically, patient continues to vague abdominal pain/nausea vomiting which is unchanged for the past several days. Lipase elevated yesterday. Lactic acid normal. Troponin normal. Urinary retention after removal of Sloan. Straight catheter 1300. Cc 02/28: New diagnosis large retroperitoneal hematoma. Received 10 PRBC, 14 FFP, 2 platelets, 1 cryo-, 6 g calcium chloride, 2 is magnesium sulfate and 4 mg Bumex. CTA abdomen revealed possible arterial bleeds iliac, lumbar. Patient is currently on norepinephrine and epinephrine drips and possible need right nephrostomy tube placement due to large hematoma compressing ureter. Intra-abdominal bladder pressures are currently 13 03/01: Afebrile. Received 25 g albumin and 1 unit PRBCs overnight. Intra- abdominal bladder pressures currently 19. Currently on 3 micrograms per minute of norepinephrine. [id number] 1 out of 4 on 4 mics grams per kilogram per minute of cisatracurium. 03/02: Slightly hypothermic overnight. Hemoglobin appears to have stabilized. Troponin bump overnight likely secondary to demand ischemia from hypotension. Hemodynamically stable off all vasopressors. 03/03: Received 1 PRBCs overnight. 3 units currently. Off all vasopressors. Likely rebleeding. Stool is dark. 03/04: Remains unstable. Ventilator dependent. 03/05: afebrile. hgb stable. 03/06: bumex drip started overnight. good uop after bumex initiated. still grossly volume overloaded. Cr downtrending. more awake with transition to propofol. still too volume overloaded to tolerate extubation. hgb stable. 03/07: Afebrile. Tolerating tube feeds at goal with Nepro. Positive BM. On low-dose fentanyl and propofol drips. Potassium currently being replaced. 03/08: Eyes will open on ventilator. Afebrile. Tolerating tube feeding. Failed PSV trial yesterday due to apnea. 03/09: Following commands. Tmax 101. Tolerating tube feeding. One hour PSV trial yesterday. Currently tolerating well so far today 1.5 hours 03/10: Low-grade temperatures. Tolerating PSV trial 10 hours yesterday. Currently at 5/5 at 35%. We'll probably attempt extubation a.m. after hemodialysis. 03/11: Extubated currently in 4 L nasal cannula. Thick secretions thick clear with cough. Currently afebrile. Tolerating diet previously. Subjective 03/12: Sleepy this morning but arouses. Following commands. Refusing diet at the present time. On 2 L nasal cannula. 03/13: Patient reintubated last night for worsening respiratory status. Currently sedated on mechanical ventilation. Became hypotensive following intubation and is on Levophed 20 mics per minute. 03/14: Sedated, orally intubated on mech vent at the time of my evaluation this AM, subsequently underwent perc trach placement. Remains on levophed for pressor support. Transfused 1 unit PRBCs today. Persistent 03/15: Trach site clean, dry. CXR with bilateral basilar infiltrates. 03/16: Pulmonary congestion persists. Clinical condition not improving. Prognosis becoming increasingly bleak. 03/17: Glucose intolerance worse. No improvement in neurological function. 03/18: Remains on mechanical ventilation via tracheostomy. Off pressors now. Neurologic status remains poor. 03/19: Drowsy, encephalopathic, arousable. On mechanical ventilation via tracheostomy. Levemir increased for hyperglycemia today. Remains off pressors Objective Vital Signs Date Time Temp Pulse Resp B/P (MAP) Pulse Ox O2 Delivery O2 Flow Rate FiO2 03/19/17 07:20 97 40 03/19/17 06:29 22 03/19/17 06:00 99 03/19/17 04:00 100.4 142/85 (104) 03/15/17 21:06 Ventilator 03/15/17 07:00 4.00 Intake and Output 03/19/17 03/19/17 03/20/17 08:00 16:00 00:00 Intake Total 1194 ml Output Total 625 ml Balance 569 ml Result Diagram: 03/19/17 0300 03/19/17 0300 Imaging Last 48 hours Impressions Chest X-Ray 03/14/17 0000 Signed Impressions: Service Date/Time: Tuesday, March 14, 2017 13:41 - CONCLUSION: 1. Tracheostomy in good position. 2. Left lower lung infiltrates and left pleural effusion. Candido Patton MD Chest X-Ray 03/13/17 0000 Signed Impressions: Service Date/Time: Monday, March 13, 2017 01:52 - CONCLUSION: 1. Bibasilar densities. 2. Endotracheal tube tip not well-seen but appears to be in good position. Armando Dodd MD Last Impressions Chest X-Ray 03/11/17 0600 Signed Impressions: Service Date/Time: Saturday, March 11, 2017 05:10 - CONCLUSION: 1. No significant change in the bibasilar densities. 2. Small left effusion. Benjamin Person MD Aortography 02/28/17 0000 Signed Impressions: Service Date/Time: Tuesday, February 28, 2017 08:01 - CONCLUSION: 1. Active hemorrhage from distal right lateral sacral and iliolumbar branches successfully coil and Gelfoam embolized, as above. Juan Bhakta MD Abdomen/Pelvis CT 02/28/17 0000 Signed Impressions: Service Date/Time: Tuesday, February 28, 2017 06:51 - CONCLUSION: 1. The right retroperitoneal hematoma has increased in size, as above. There are 2 serpiginous arterially enhancing structures visualized, one in the right psoas muscle and another extending into the hematoma at the right iliac fossa. These could represent sites of continued active bleeding. 2. Stable moderate size left and small right pleural effusion with associated compressive atelectasis. 3. Stable small volume of free fluid in the abdomen and pelvis. There is also anasarca. The findings concerning the retroperitoneal hematoma were discussed with Dr. Aguiar via telephone at approximately 7: 10 AM on 02/28/2017. Angelo Allen MD Chest CT 02/27/17 0000 Signed Impressions: Service Date/Time: Monday, February 27, 2017 18:12 - CONCLUSION: 1. Bilateral pleural effusions with bibasilar atelectasis, left greater than right. Tom Sanchez MD Abdomen X-Ray 02/26/17 0000 Signed Impressions: Service Date/Time: Sunday, February 26, 2017 14:52 - CONCLUSION: 1. Nonobstructive bowel gas pattern. Juan Bhakta MD Upper Extremity Ultrasound 02/10/17 0000 Signed Impressions: Service Date/Time: Friday, February 10, 2017 18:46 - CONCLUSION: Occlusive thrombus in the cephalic and basilic veins. Benjamin Person MD Lung Scan-V Nuclear Medicine 02/10/17 0000 Signed Impressions: Service Date/Time: Friday, February 10, 2017 22:17 - CONCLUSION: Low probability pulmonary embolism. Candido Patton MD Head CT 02/10/17 0000 Signed Impressions: Service Date/Time: Friday, February 10, 2017 23:51 - CONCLUSION: Negative noncontrast CT brain. Candido Patton MD Wrist X-Ray 02/06/17 0000 Signed Impressions: Service Date/Time: Monday, February 06, 2017 12:50 - CONCLUSION: Minimally displaced distal radius and ulnar fractures. Armando Dodd MD Lumbar Puncture Fluoroscopy 02/01/17 0000 Signed Impressions: Service Date/Time: January 09:35 - CONCLUSION: Uncomplicated fluoroscopically guided lumbar puncture. CSF was clear. Nabeel Peralta MD Head Magnetic Resonance Angiography 01/27/17 0000 Signed Impressions: Service Date/Time: Friday, January 27, 2017 10:33 - CONCLUSION: No intracranial vascular abnormality is identified. There is no aneurysm visualized. Angelo Allen MD IVC Filter Placement X-Ray 01/25/17 0000 Signed Impressions: Service Date/Time: January 10:29 - CONCLUSION: Uncomplicated inferior vena cava filter placement as above. Yung Fowler MD Thoracic Spine MRI 01/24/17 0000 Signed Impressions: Service Date/Time: Tuesday, January 24, 2017 22:29 - CONCLUSION: 1. Mild degenerative spondylosis most prominently at T11-L1 with slight effacement of the anterior thecal sac and left lateral recess. No significant neural foraminal stenosis. 2. No acute fracture. Juan Bhakta MD Renal Ultrasound 01/23/17 Signed Impressions: Service Date/Time: Monday, January 23, 2017 08:53 - CONCLUSION: 1. Evidence of chronic parenchymal disease of both kidneys. No obstructive uropathy or other acute abnormality demonstrated. 2. Trace ascites, nonspecific. Angelo Garrido MD Lumbar Spine MRI 01/23/17 Signed Impressions: Service Date/Time: Monday, January 23, 2017 17:01 - CONCLUSION: 1. At L4-5 is a broad-based disc protrusion with severe central canal and lateral recess stenosis and flattening of the exiting right L4 nerve root. 2. L5-S1 there is a disc protrusion and moderate stenosis with flattening of the exiting L5 nerve roots bilaterally. 3. At L3-4 there is a moderate to severe central stenosis and lateral recess stenosis with mild foraminal stenosis. 4. No acute fracture or spondylolisthesis. Trace Holloway MD Lower Extremity Ultrasound 01/23/17 Signed Impressions: Service Date/Time: Monday, January 23, 2017 09:53 - CONCLUSION: Bilateral focal lower extremity DVT involving the posterior tibial veins. Angelo Garrido MD Cervical Spine MRI 01/23/17 Signed Impressions: Service Date/Time: Monday, January 23, 2017 17:01 - CONCLUSION: 1. Multilevel cervical spine degenerative changes as above. 2. Mild degrees of spinal stenosis at C3/C4-C6/C7. No cord compression or cord signal abnormality. 3. Age indeterminate left paracentral/foraminal disc protrusion at C6/C7. 4. Multilevel foraminal stenosis, most severe on the left at C6/C7. Please see individual levels above. 5. No fracture or subluxation of the cervical spine. Angelo Garrido MD Brain MRI 01/23/17 Signed Impressions: Service Date/Time: Monday, January 23, 2017 17:01 - CONCLUSION: 1. No acute stroke or other acute intracranial abnormality demonstrated. 2. Moderate severity chronic white matter changes, nonspecific but most likely related to chronic small vessel disease. 3. Few scattered tiny lacunar infarcts of the brainstem. 4. Given the findings are not entirely specific, clinical evaluation for possible multiple sclerosis recommended. Angelo Garrido MD Knee X-Ray 01/22/[id number] Signed Impressions: Service Date/Time: Sunday, January 22, 2017 21:17 - CONCLUSION: 1. Evidence of moderate to large joint effusion. 2. No acute fracture or malalignment. 3. Mild 3 compartment osteoarthritic change. Benjamin Person MD Hip and Pelvis X-Ray [id number]/22/[id number] Signed Impressions: Service Date/Time: Sunday, January 22, 2017 21:10 - CONCLUSION: 1. Mild to moderate degenerative change of both hips with no acute fracture or malalignment. There is flattening and remodeling of the right humeral head. Benjamin Persno MD Objective Remarks GENERAL: 62-year-old male, resting in bed, on mechanical ventilation via tracheostomy HEENT: Normocephalic. Atraumatic. Pupils equal, round, reactive. NECK: Tracheostomy in place. Obese. Right IJ TLC, left IJ hemodialysis catheter clean dry and intact CHEST: on mechanical ventilation via tracheostomy, air entry decreased bilaterally at bases, persistent scattered rhonchi bilaterally, no wheezing CARDIOVASCULAR: S1-S2 regular, no gallop or murmur ABDOMEN distended. No rigidity. Umbilical hernia is reducible. No guarding. PEG tube in place : Positive scrotal edema MUSCULOSKELETAL: Pulses 2+. 1+ bilateral upper and lower extremity edema. Wound VAC on left upper extremity NEUROLOGICAL: Drowsy/encephalopathic, on mechanical ventilation via tracheostomy.. Moves 4 limbs weakly to stimulation. Procedures IVC filter placement 01/25/2017 LP 01/26/2017 Date of Insertion: Mar 03, 2017 Line: Central Venous Catheter Side: Right Location: Internal, Jugular A/P Problem List: (1) Septic shock ICD Code: A41.9 - Sepsis, unspecified organism; R65.21 - Severe sepsis with septic shock Status: Acute (2) Acute respiratory failure ICD Code: J96.00 - Acute respiratory failure, unspecified whether with hypoxia or hypercapnia Status: Acute (3) Thrombophlebitis arm ICD Code: I80.8 - Phlebitis and thrombophlebitis of other sites (4) Aspiration pneumonia ICD Code: J69.0 - Pneumonitis due to inhalation of food and vomit Status: Acute (5) Atelectasis of left lung ICD Code: J98.11 - Atelectasis Status: Acute (6) Quadriparesis ICD Code: G82.50 - Quadriplegia, unspecified Status: Acute (7) DVT (deep venous thrombosis) ICD Code: I82.409 - Acute embolism and thrombosis of unspecified deep veins of unspecified lower extremity (8) Altered mental status ICD Code: R41.82 - Altered mental status, unspecified Status: Acute (9) CKD (chronic kidney disease) stage 3, GFR 30-59 ml/min ICD Code: N18.3 - Chronic kidney disease, stage 3 (moderate) Status: Chronic (10) Acute renal failure ICD Code: N17.9 - Acute kidney failure, unspecified Status: Acute (11) Diabetes mellitus ICD Code: E11.9 - Type 2 diabetes mellitus without complications Status: Chronic (12) Distal end of ulna fracture, closed ICD Code: S52.609A - Unspecified fracture of lower end of unspecified ulna, initial encounter for closed fracture Status: Acute (13) Gout ICD Code: M10.9 - Gout, unspecified Status: Chronic Assessment and Plan NEURO/PSYCH: Acute metabolic encephalopathy- persistent Quadriparesis secondary to suspected transverse myelitis Recurrent falls Pain secondary to retroperitoneal hematoma. Suspected transverse myelitis. Received methylprednisolone 250 mg IV every 6 hours 01/27-02/02, started back on hydrocortisone 02/21/17, initially tapering to 50 mg IV every 8 hours starting received 1 dose at 2100 prior to becoming hypotensive. weaning hydrocortisone taper and stopped 03/09. Resumed hydrocortisone 50mg IV Q6hrly on 03/14 as patient became hypotensive following intubation on 03/13 requiring levophed. LP 01/26 and 02/01. CSF culture negative 01/26, 02/01 Oligoclonal bands negative. CSF/serum IgG index is not elevated. VDRL nonreactive. Cryptococcal antigen negative. Brain MRI 01/23 no acute stroke. Few scattered lacunar infarcts of the brainstem. Moderate chronic white matter changes. MRI cervical/thoracic spine- mild spinal stenosis C3/C4 to C6/C7. No cord compression. RPR negative Neurology has been following, Dr. Crenshaw. Repeat CT brain 02/10 - negative Titrate off sedation following tracheostomy as tolerated. Continue PT/OT RESP: Acute hypoxemic respiratory failure Healthcare associated pneumonia/Aspiration Pneumonia Right-sided chest tube placed for pleural effusion. continue mechanical ventilation, vent bundle, Albuterol/ipratropium aerosols every 6 hours with albuterol aerosols every 2 hours prn VQ scan 02/10 low probability for PE. CT chest 02/10 - left lower lobe collapse and consolidation. CT chest 02/27 revealed right greater than left pleural effusions. Extubated 02/23. Intubated 02/28. Extubated 03/11, Reintubated on 03/13. 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 Failed attempt to wean successfully due to volume overload and multiple organ failure. underwent perc tracheostomy 03/14. CV: Severe sepsis - resolved. Systolic heart failure likely chronic with ejection fraction 20-25% Hyperlipidemia History of hypertension Mild TR Sinus tachycardia Elevated troponin likely type II demand ischemia Restarted on Levophed on 03/09 for following intubation, titrated off after starting hydrocortisone. Started hydrocortisone stress dose on 03/14 (as patient has been on steroids and was just tapered off on 03/09.) Holding beta yani and amlodipine in light of hypotension. atorvastatin 10 mg by mouth daily for dyslipidemia. Troponin 0.[address]-T changes. 2-D echocardiogram 01/11 revealed EF 20-25%. Mild TR. Pulmonary arterial pressures were normal around 20 Troponin 6.55 on 03/02. Likely will need stress test of heart once stable. Cannot anticoagulate due to retroperitoneal hematoma at the present time Currently on furosemide 40 mg IV twice a day per nephrology. GI: Large right retroperitoneal hematoma Erosive esophagitis Adematous/hyperplastic colon polyps Severe acute protein calorie malnutrition Nausea/vomiting - resolved. Diarrhea Gastritis Diverticulosis Internal and external hemorrhoids Hiatal hernia Elevated lipase 02/27 CT chest/abdomen and pelvis - 9.4 x 7.5 renal and 16 x 12 cm right psoas muscle hematoma. Fluid around liver and spleen. Right-sided nephrolithiasis CTA abdomen 02/28 - possible blushing around iliac/lumbar vessels Discussed with IR. s/p attempted embolization CT abdomen and pelvis 02/10 atrophic left kidney. Bilateral inguinal hernias fat- containing. Nonobstructing 12 mm right kidney stone repeat CT abd/pelvis did not show evidence of obstruction. patient clinically has been having diarrhea (c. diff negative 02/19). also with nausea/vomiting of unclear etiology. EGD/Colonoscopy-02/22/17 showed gastritis esophagitis, hiatal hernia, diverticulosis and multiple polyps in descending colon and sigmoid which were snared biopsied. Biopsy pending Dr. Lewis consulted for intervention if needed for elevated IAP. will continue to check as needed Previously on on tube feeds with Nepro, held for trach. Will consult GI for PEG. Lansoprazole for GI prophylaxis FEN/RENAL: Acute kidney injury in the setting of Chronic kidney disease stage 3-4 History of uric acid kidney stones with prior stent BPH Nonfunctioning left kidney Acute intravascular volume overload Hypernatremia Hypophosphatemia Sloan placed due to urinary retention and worsening creatinine. Monitor intake and output q1hr. Monitor electrolytes. RIOS/SPEP negative. 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 Recommended nephrostomy tube if obstruction Nephrology consulted, hemodialysis per nephrology. Due to acute illness holding tamsulosin 0.4 mg by mouth daily for BPH Free water 200 mL q4h for hypernatremia ICU electrolyte replacement protocol ID: Septic shock- resolved. Abscess and Suppurative thrombophlebitis left upper extremity MSSA bacteremia Klebsiella UTI ESBL positive Acute aspiration pneumonia/HCAP Broad-spectrum antibiotics with oxacillin 2 g IV every 4 hours till March 26 initially. This is been held in light of current change to regimen to fluconazole, ertapenem and vancomycin intermittently dosed per ID. Added sulfamethoxazole/ trimethoprim 4 mg/80 mg 1 tablet twice a day today 03/11 for sternotrophomonas in sputum per infectious disease Blood cultures 2, UA ESBL positive Klebsiella UTI Sputum 03/14 - Pseudomonas Repeat blood cultures 2 and sputum 03/08 pending. Urine negative. ID on board. HEME: Acute blood loss anemia DVT, bilateral posterior tibial vein, IVC filter Septic thrombophlebitis with occlusive thrombus mid cephalic and basilic vein side Received 10 PRBC, 14 FFP, 2 platelets, 1 cryo-02/28 Past 24 hours received 3 units PRBCs Serial hemoglobins every 6 hours Recheck coags Ultrasound 01/23/17 - Bilateral lower extremity with occlusive posterior tibial vein DVTs. Heparin was initially started for DVT but was placed on hold due to LP with suspected traumatic tap. Currently holding full anticoagulation with enoxaparin 100 mg IV twice a day due to anemia as of 02/26 IVC filter was placed 01/25/17. Ultrasound LUE 02/10 occlusive thrombus mid cephalic vein, basilic vein.s. Transfuse 3 units PRBCs 02/27 Transfuse 2 units PRBCs 03/01. transfused 1 unit PRBCs on 03/14 ENDO: Diabetes mellitus Hypoglycemia History of prior adrenal insufficiency with shock Gout EGD colonoscopy completed 02/22. gastritis and esophagitis, colon polyps Started Hydrocortisone 100 mg every 8 hours 02/21/17 (Recent high dose steroids use now hypotensive, hypoglycemic), steroids had been tapered off. Resumed stress dose steroids on 03/16 as patient back on Levophed for pressor support after intubation. Accu-Cheks to maintain euglycemia Novulin R every 4 hours. Increase Levemir from 30 units twice a day to 25 units twice a day for hyperglycemia which is probably worse since starting stress dose steroids. MSK: Right distal ulna fracture. Dr. Nathan with orthopedics has evaluated and recommended nonoperative management. Right wrist splint in place. PROPH: Lansoprazole 30 mg twice a day twice a day for stress ulcer prophylaxis. Has IVC filter. Therapeutic enoxaparin currently on hold for retroperitoneal hematoma ACCESS: right IJ CVL placed 03/03. A left IJ hemodialysis catheter placed 03/01. Left femoral A line placed 03/14 Overall impression: Patient remains critically ill with worsening respiratory failure requiring reintubation; hypotension. Tracheostomy placed for comfort. Palliative care to assist with deciding goals of therapy. Prognosis poor with unstable respiratory and hemodynamics status. Critical care 30 mins Problem Qualifiers (1) Aspiration pneumonia: (2) DVT (deep venous thrombosis): Qualified Codes: I82.443 - Acute embolism and thrombosis of tibial vein, bilateral (3) Acute renal failure: Qualified Codes: N17.9 - Acute kidney failure, unspecified (4) Diabetes mellitus: (5) Gout: Devin Puente MD Mar 19, 2017 08:57
[2017-03-19] MEDS: ATENOLOL 25 MG TAB PO SCH ×2 (10:32→20:33)
[2017-03-19] MEDS: SODIUM CHLOR 0.9% 1000 ML INJ 1,000 ML IV SCH (11:48)
--- NOTE | 2017-03-19 12:18 | HHI.IDPN ---
Subjective Subjective Remarks Patient is a 62-year-old male, admitted to the hospital for evaluation of pain in his right wrist. He gave a history of falling about a week ago and apparently had immediate pain in the right wrist. He did not seek any medical attention initially because reportedly he was very busy. He eventually presented, and he was found to have a distal ulnar fracture on plain films. He also had some redness and swelling. Orthopedics saw the patient, and was being treated conservatively with the splint. During this hospitalization also he started complaining of generalized weakness but more so in his lower extremity than his upper extremity. He had swelling in both lower extremity which revealed evidence of DVT in the posterior tibial veins. Neurology had seen the patient and he underwent lumbar puncture which apparently was traumatic. Patient was therefore not given anticoagulation because of the traumatic LP, and he underwent placement of an IVC filter on January 25. Patient had another lumbar puncture on February 01. He was felt to have transverse myelitis, and he was given high-dose IV Solu-Medrol from January 27 to February 02. There was apparently some improvement in his weakness. The imaging studies done for his weakness showed some spinal stenosis, and neurosurgery was consult that and recommended that there was no surgical intervention to be done. Patient has been stabilizing, but last night apparently deteriorated, and he ended up getting intubated, and had significant hypotension requiring pressors. There was also an ultrasound done of his left upper extremity which showed DVT, and there was evidence of superior 2 thrombophlebitis. Vascular surgery was consult to it and he had IND on his left upper extremity. Patient has had some fevers since yesterday. 2 blood cultures were done yesterday and they're now reported as growing gram-positive cocci in [place] in clusters. He is currently sedated and intubated. He is on Levophed and vasopressin. A central line was placed as well as a femoral a line. He apparently had an IV in his left upper extremity and that was removed yesterday. Patient also has history of chronic kidney disease, and nephrology evaluated the patient. He was just being monitored for his renal insufficiency. Infectious disease consultation has been requested to evaluate the patient. Notes reviewed Temps 100+ this weekend S/P trach S/P PEG BP ok, not on pressors Last HD 03/17 Sputum with Pseudomonas Reintubated 03/12 Antibiotics I attest that I obtained, updated or reviewed the home and current medications. Meropenem Bactrim - finished 03/18 Vanco intermittent dosing Current Medications Medications (Trade) Dose Ordered Sig/Rosalia Route Start Time Stop Time Status Last Admin (NS Flush) 2 ml UNSCH PRN IV FLUSH 01/23/17 00:30 02/01/17 05:07 (NS Flush) 2 ml BID IV FLUSH 01/23/17 09:00 03/19/17 08:51 (Zofran Inj) 4 mg Q6H PRN IVP 01/23/17 00:30 02/26/17 17:23 (Narcan Inj) 0.4 mg UNSCH PRN IV 01/23/17 00:30 (Edna-Colace) 1 tab BID PO 01/23/17 09:00 Future Hold 02/24/17 20:31 (Dulcolax Supp) 10 mg DAILY PRN RECTAL 01/23/17 00:30 (Lipitor) 10 mg HS PO 01/24/17 21:00 Future hold 03/18/17 20:49 (Glucagon Inj) 1 mg UNSCH PRN OTHER 02/11/17 05:45 02/18/17 18:53 (Flomax) 0.4 mg Q12HR PO 02/17/17 15:00 Future Hold 02/26/17 08:49 (Lovenox Inj) 100 mg Q12H SQ 02/18/17 12:00 Future Hold 02/26/17 16:20 (Lactinex) 1 tab TID PO 02/19/17 13:00 03/19/17 11:47 (Apresoline Inj) 10 mg Q30M PRN IV PUSH 02/20/17 11:45 03/11/17 12:37 (D50w (Vial) Inj) 25 ml UNSCH PRN IV PUSH 02/20/17 12:45 Sodium Chloride 1,000 ml @ 20 mls/hr Q24H IV 02/22/17 13:00 03/19/17 11:48 (Questran Light Pkt) 4 gm Q12HR PO 02/25/17 21:00 Future Hold 02/27/17 10:32 (Aldactone) 25 mg DAILY PO 02/27/17 09:00 Future Hold (Reglan Inj) 5 mg Q8HR IV PUSH 02/26/17 22:00 03/19/17 05:28 (Peridex 0.12% Liq) 15 ml BID@08,20 MT 02/28/17 08:00 03/19/17 08:51 (Albuterol Neb) 2.5 mg Q2HR NEB PRN NEB 02/28/17 07:45 03/16/17 20:41 (NovoLIN R SUPPLEMENTAL SCALE) 1 Q4HR SQ 02/28/17 08:00 03/19/17 11:47 Sodium Chloride 1,000 ml @ 0 mls/hr Q0M PRN OTHER 03/01/17 11:19 03/17/17 08:43 Sodium Chloride 1,000 ml @ 200 mls/hr Q5H PRN IV 03/01/17 11:19 Sodium Chloride 1,000 ml @ 0 mls/hr Q0M PRN OTHER 03/01/17 11:19 (Mannitol Inj) 12.5 gm UNSCH PRN IV 03/01/17 11:30 03/08/17 17:27 Albumin Human 100 ml @ 60 mls/hr UNSCH PRN IV 03/01/17 11:30 03/15/17 09:05 (NS Flush) 5 ml UNSCH PRN IV FLUSH 03/01/17 11:30 (Heparin Inj) UNSCH PRN .XX 03/01/17 11:30 03/17/17 08:42 (Gentamicin (Dialysis) Inj) 20 mg UNSCH PRN OTHER 03/01/17 11:30 03/17/17 08:44 (Tylenol) 650 mg UNSCH PRN PO 03/01/17 11:30 (Nitrostat Sl) 0.4 mg UNSCH PRN SL 03/01/17 11:30 (Gelfoam 12 Mm/7 Mm Top) 1 foam UNSCH PRN TOP 03/01/17 11:30 (NS Flush) UNSCH PRN IV FLUSH 03/01/17 13:00 (Heparin Inj) UNSCH PRN IV FLUSH 03/01/17 13:00 (NS Flush) DAILY IV FLUSH 03/04/17 09:00 03/19/17 08:50 (NS Flush) UNSCH PRN IV FLUSH 03/03/17 18:45 (Roxicodone Intensol Liq) 10 mg Q4H PO 03/05/17 14:00 03/19/17 08:49 (Prevacid Odt) 30 mg BID NG 03/07/17 21:00 03/19/17 08:50 (Tylenol 650 Mg/ 20 ml Liq) 650 mg Q6H PRN PO 03/09/17 10:15 03/14/17 05:24 (Lasix Inj) 40 mg BID@09,18 IV PUSH 03/10/17 18:00 03/19/17 08:49 (Trandate Inj) 20 mg Q4H PRN IV 03/12/17 04:30 03/17/17 12:25 (Tenormin) 25 mg Q12HR PO 03/12/17 10:00 03/19/17 10:32 Phenylephrine HCl 160 mg/Dextrose 500 ml @ 7.5 mls/hr TITRATE PRN IV 03/12/17 10:45 (Brethine Inj) 1 mg UNSCH PRN SQ 03/12/17 10:45 Midazolam HCl 100 ml @ 2 mls/hr TITRATE PRN IV 03/13/17 01:00 03/14/17 09:21 Fentanyl Citrate 250 ml @ 5 mls/hr TITRATE PRN IV 03/13/17 01:00 03/16/17 07:41 Norepinephrine Bitartrate 16 mg/ Sodium Chloride 250 ml @ 1.87 mls/hr TITRATE PRN IV 03/13/17 10:45 03/16/17 07:45 (SoluCORTEF INJ) 50 mg Q6HR IV PUSH 03/14/17 18:00 03/19/17 11:46 Meropenem 500 mg/ Sodium Chloride 100 ml @ 200 mls/hr Q8H IV 03/15/17 16:00 03/19/17 08:48 (Epogen Inj) 10,000 units UNSCH PRN IV PUSH 03/17/17 11:30 (Levemir Inj) 25 units BID SQ 03/19/17 09:00 03/19/17 10:31 Lines KATHLEEN haro - 03/12 Past Medical History Reviewed Allergies: Coded Allergies: levofloxacin (Verified Allergy, Severe, 01/22/17) Objective . Vital Signs Date Time Temp Pulse Resp B/P (MAP) Pulse Ox O2 Delivery O2 Flow Rate FiO2 03/19/17 10:24 40 03/19/17 10:24 97 40 03/19/17 10:00 102 03/19/17 08:00 100 03/19/17 08:00 40 03/19/17 08:00 100.2 100 20 142/80 (100) 98 03/19/17 07:20 97 40 03/19/17 06:29 22 03/19/17 06:00 99 03/19/17 04:09 97 40 03/19/17 04:00 100 03/19/17 04:00 100.4 104 21 142/85 (104) 98 03/19/17 04:00 40 03/19/17 02:00 104 03/19/17 01:02 96 40 03/19/17 00:00 104 03/19/17 00:00 99.6 104 20 134/72 (92) 97 03/19/17 00:00 40 03/18/17 22:00 103 03/18/17 20:30 97 40 03/18/17 20:00 104 03/18/17 20:00 40 03/18/17 20:00 99.7 97 26 137/64 (88) 97 03/18/17 18:00 104 03/18/17 17:28 95 40 03/18/17 16:00 99.5 97 22 129/64 (85) 97 03/18/17 16:00 97 03/18/17 16:00 40 03/18/17 14:00 99 . Laboratory Tests Test 03/18/17 06:30 03/19/17 03:00 White Blood Count 9.8 TH/MM3 13.3 TH/MM3 Red Blood Count 3.02 MIL/MM3 3.03 MIL/MM3 Hemoglobin 8.9 GM/DL 8.9 GM/DL Hematocrit 26.3 % 26.6 % Mean Corpuscular Volume 87.1 FL 87.6 FL Mean Corpuscular Hemoglobin 29.6 PG 29.4 PG Mean Corpuscular Hemoglobin Concent 34.0 % 33.5 % Red Cell Distribution Width 15.8 % 15.5 % Platelet Count 238 TH/MM3 243 TH/MM3 Mean Platelet Volume 8.7 FL 9.2 FL Neutrophils (%) (Auto) 88.2 % Lymphocytes (%) (Auto) 4.6 % Monocytes (%) (Auto) 6.7 % Eosinophils (%) (Auto) 0.2 % Basophils (%) (Auto) 0.3 % Neutrophils # (Auto) 8.6 TH/MM3 Lymphocytes # (Auto) 0.4 TH/MM3 Monocytes # (Auto) 0.7 TH/MM3 Eosinophils # (Auto) 0.0 TH/MM3 Basophils # (Auto) 0.0 TH/MM3 CBC Comment DIFF FINAL AUTO DIFF Differential Comment FINAL DIFF MANUAL Differential Total Cells Counted 100 Neutrophils % (Manual) 76 % Band Neutrophils % 18 % Lymphocytes % 3 % Monocytes % 1 % Neutrophils # (Manual) 12.8 TH/MM3 Metamyelocytes 2 % Toxic Granulation 1+ Platelet Estimate NORMAL Platelet Morphology Comment NORMAL Laboratory Tests Test 03/18/17 06:30 03/19/17 03:00 Blood Urea Nitrogen 76 MG/DL 91 MG/DL Creatinine 2.30 MG/DL 2.33 MG/DL Random Glucose 320 MG/DL 322 MG/DL Calcium Level 8.6 MG/DL 7.9 MG/DL Sodium Level 145 MEQ/L 145 MEQ/L Potassium Level 3.1 MEQ/L 3.0 MEQ/L Chloride Level 108 MEQ/L 110 MEQ/L Carbon Dioxide Level 25.1 MEQ/L 25.7 MEQ/L Anion Gap 12 MEQ/L 9 MEQ/L Estimat Glomerular Filtration Rate 29 ML/MIN 29 ML/MIN Total Protein 5.5 GM/DL Albumin 2.0 GM/DL Alkaline Phosphatase 177 U/L Aspartate Amino Transf (AST/SGOT) 59 U/L Alanine Aminotransferase (ALT/SGPT) 22 U/L Total Bilirubin 0.6 MG/DL Imaging L Chest X-Ray 03/14/17 0000 Signed Impressions: Service Date/Time: Tuesday, March 14, 2017 13:41 - CONCLUSION: 1. Tracheostomy in good position. 2. Left lower lung infiltrates and left pleural effusion. Candido Patton MD Aortography 02/28/17 0000 Signed Impressions: Service Date/Time: Tuesday, February 28, 2017 08:01 - CONCLUSION: 1. Active hemorrhage from distal right lateral sacral and iliolumbar branches successfully coil and Gelfoam embolized, as above. Juan Bhakta MD Abdomen/Pelvis CT 02/28/17 0000 Signed Impressions: Service Date/Time: Tuesday, February 28, 2017 06:51 - CONCLUSION: 1. The right retroperitoneal hematoma has increased in size, as above. There are 2 serpiginous arterially enhancing structures visualized, one in the right psoas muscle and another extending into the hematoma at the right iliac fossa. These could represent sites of continued active bleeding. 2. Stable moderate size left and small right pleural effusion with associated compressive atelectasis. 3. Stable small volume of free fluid in the abdomen and pelvis. There is also anasarca. The findings concerning the retroperitoneal hematoma were discussed with Dr. Aguiar via telephone at approximately 7: 10 AM on 02/28/2017. Angelo Allen MD Chest CT 02/27/17 0000 Signed Impressions: Service Date/Time: Monday, February 27, 2017 18:12 - CONCLUSION: 1. Bilateral pleural effusions with bibasilar atelectasis, left greater than right. Tom Sanchez MD Abdomen X-Ray 02/26/17 0000 Signed Impressions: Service Date/Time: Sunday, February 26, 2017 14:52 - CONCLUSION: 1. Nonobstructive bowel gas pattern. Juan Bhakta MD Upper Extremity Ultrasound 02/10/17 0000 Signed Impressions: Service Date/Time: Friday, February 10, 2017 18:46 - CONCLUSION: Occlusive thrombus in the cephalic and basilic veins. Benjamin Person MD Lung Scan- Nuclear Medicine 02/10/17 0000 Signed Impressions: Service Date/Time: Friday, February 10, 2017 22:17 - CONCLUSION: Low probability pulmonary embolism. Candido Patton MD Head CT 02/10/17 0000 Signed Impressions: Service Date/Time: Friday, February 10, 2017 23:51 - CONCLUSION: Negative noncontrast CT brain. Candido Patton MD Wrist X-Ray 02/06/17 0000 Signed Impressions: Service Date/Time: Monday, February 06, 2017 12:50 - CONCLUSION: Minimally displaced distal radius and ulnar fractures. Armando Dodd MD Lumbar Puncture Fluoroscopy 02/01/17 0000 Signed Impressions: Service Date/Time: January 09:35 - CONCLUSION: Uncomplicated fluoroscopically guided lumbar puncture. CSF was clear. Nabeel Peralta MD Head Magnetic Resonance Angiography 01/27/17 0000 Signed Impressions: Service Date/Time: Friday, January 27, 2017 10:33 - CONCLUSION: No intracranial vascular abnormality is identified. There is no aneurysm visualized. Angelo Allen MD IVC Filter Placement X-Ray 01/25/17 Signed Impressions: Service Date/Time: January 10:29 - CONCLUSION: Uncomplicated inferior vena cava filter placement as above. Yung Fowler MD Thoracic Spine MRI 01/24/17 Signed Impressions: Service Date/Time: Tuesday, January 24, 2017 22:29 - CONCLUSION: 1. Mild degenerative spondylosis most prominently at T11-L1 with slight effacement of the anterior thecal sac and left lateral recess. No significant neural foraminal stenosis. 2. No acute fracture. Juan Bhakta MD Renal Ultrasound 01/23/17 Signed Impressions: Service Date/Time: Monday, January 23, 2017 08:53 - CONCLUSION: 1. Evidence of chronic parenchymal disease of both kidneys. No obstructive uropathy or other acute abnormality demonstrated. 2. Trace ascites, nonspecific. Angelo Garrido MD Lumbar Spine MRI 01/23/17 Signed Impressions: Service Date/Time: Monday, January 23, 2017 17:01 - CONCLUSION: 1. At L4-5 is a broad-based disc protrusion with severe central canal and lateral recess stenosis and flattening of the exiting right L4 nerve root. 2. L5-S1 there is a disc protrusion and moderate stenosis with flattening of the exiting L5 nerve roots bilaterally. 3. At L3-4 there is a moderate to severe central stenosis and lateral recess stenosis with mild foraminal stenosis. 4. No acute fracture or spondylolisthesis. Trace Holloway MD Lower Extremity Ultrasound 01/23/17 Signed Impressions: Service Date/Time: Monday, January 23, 2017 09:53 - CONCLUSION: Bilateral focal lower extremity DVT involving the posterior tibial veins. Angelo Garrido MD Cervical Spine MRI 01/23/17 Signed Impressions: Service Date/Time: Monday, January 23, 2017 17:01 - CONCLUSION: 1. Multilevel cervical spine degenerative changes as above. 2. Mild degrees of spinal stenosis at C3/C4-C6/C7. No cord compression or cord signal abnormality. 3. Age indeterminate left paracentral/foraminal disc protrusion at C6/C7. 4. Multilevel foraminal stenosis, most severe on the left at C6/C7. Please see individual levels above. 5. No fracture or subluxation of the cervical spine. Angelo Garrido MD Brain MRI 01/23/17 0000 Signed Impressions: Service Date/Time: Monday, January 23, 2017 17:01 - CONCLUSION: 1. No acute stroke or other acute intracranial abnormality demonstrated. 2. Moderate severity chronic white matter changes, nonspecific but most likely related to chronic small vessel disease. 3. Few scattered tiny lacunar infarcts of the brainstem. 4. Given the findings are not entirely specific, clinical evaluation for possible multiple sclerosis recommended. Angelo Garrido MD Knee X-Ray [id number]/22/[id number] Signed Impressions: Service Date/Time: Sunday, January 22, 2017 21:17 - CONCLUSION: 1. Evidence of moderate to large joint effusion. 2. No acute fracture or malalignment. 3. Mild 3 compartment osteoarthritic change. Benjamin Person MD Hip and Pelvis X-Ray [id number]/22/[id number] Signed Impressions: Service Date/Time: Sunday, January 22, 2017 21:10 - CONCLUSION: 1. Mild to moderate degenerative change of both hips with no acute fracture or malalignment. There is flattening and remodeling of the right humeral head. Benjamin Person MD Physical Exam GENERAL: Opens eyes when stimulated, NAD. On the vent SKIN: Cool and dry. No generalized rash. Still very edematous EYES: [place] Ii conjunctiva. No petechia or hemorrhage. EARS, NOSE AND THROAT: Nose without bleeding or purulent nasal discharge. NECK: Trachea midline. Supple and no meningeal signs. Trach site ok CARDIOVASCULAR: Regular rate and rhythm. Soft heart sounds. No murmurs RESPIRATORY: Coarse BS bilaterally, decreased at bases. ABDOMEN: Soft, mildly distended, PEG site ok EXTREMITIES: No clubbing, cyanosis. Edema feet better; edema hands better : very swollen scrotum, has a lot of sediment in his cath tubing NEUROLOGICAL: opens eyes PSYCHIATRIC: unable to assess LINE: Lines with no evidence of infection Assessment & Plan Remarks IMPRESSION Fevers - had Kleb and Sten mal in sputum, now with Pseudomonas - PSAE R to Imipenem HCAP, Pseudomonas now, previously Kleb and Sten mal - S/P Rx with Bactrim Shock, resolved Large R retroperitoneal bleed, S/P multiple transfusions and S/P coiling of bleeders Elevated amylase and lipase, better Anemia, due to bleed, retroperitoneal MSSA sepsis, due to suppurative thrombophlebitis LUE, S/P I and D and excision of portion of cephalic vein - needs Rx until Nov Respiratory failure, has had several intubations - reintubated again 02/28, extubated 03/11 - reintubated again - S/P trach 03/14 Recent Rx 7 days high dose solumedrol for transverse myelitis Wu LE DVT has IVC filter placed 01/25 - ?hypercoagulable state Chronic kidney disease, worsening creatinine - shock and compression of ureter by hematoma Known DM, HTN Gouty tophi both hands and feet Diarrhea, C diff negative UTI, GNR - repeat UA better, but a lot of sediment in the urine Thrombocytopenia, no evidence of DIC, ?meds, ?infection, ?due to bleed - improving RECOMMENDATION Change Merem to Fortaz Give dose of Vanco Follow temps Monitor progress Palliative med following Irene Edwards MD Mar 19, 2017 12:18
[2017-03-19] MEDS ORDERED: VANCOMYCIN INJ 1,000 MG in SODIUM CHLOR 0.9% 250 ML INJ 250 ML IV ONE (13:00)
[2017-03-19] MEDS: cefTAZidime INJ 2,000 MG in SODIUM CHLORIDE 0.9% INJ 100 ML IV SCH (14:15)
--- NOTE | 2017-03-19 14:33 | HHI.NPPN ---
Subjective History of Present Illness 61-year-old with history of urinary stone Additional Remarks Patient had trach on vent Review of Systems General Constitutional: Fatigue Objective Data Data Vital Signs Date Time Temp Pulse Resp B/P (MAP) Pulse Ox O2 Delivery O2 Flow Rate FiO2 03/19/17 12:00 40 03/19/17 12:00 95 03/19/17 12:00 100.0 94 19 143/83 (103) 97 03/19/17 10:24 40 03/19/17 10:24 97 40 03/19/17 10:00 102 03/19/17 08:00 100 03/19/17 08:00 40 03/19/17 08:00 100.2 100 20 142/80 (100) 98 03/19/17 07:20 97 40 03/19/17 06:29 22 03/19/17 06:00 99 03/19/17 04:09 97 40 03/19/17 04:00 100 03/19/17 04:00 100.4 104 21 142/85 (104) 98 03/19/17 04:00 40 03/19/17 02:00 104 03/19/17 01:02 96 40 03/19/17 00:00 104 03/19/17 00:00 99.6 104 20 134/72 (92) 97 03/19/17 00:00 40 03/18/17 22:00 103 03/18/17 20:30 97 40 03/18/17 20:00 104 03/18/17 20:00 40 03/18/17 20:00 99.7 97 26 137/64 (88) 97 03/18/17 18:00 104 03/18/17 17:28 95 40 03/18/17 16:00 99.5 97 22 129/64 (85) 97 03/18/17 16:00 97 03/18/17 16:00 40 -: 03/19/17 0300 03/19/17 0300 Physical Exam General Appearance: Pale Eyes Eye Exam: Pupils Equal Throat Throat Exam: Oral Mucosa [place] & Moist Neck Neck Exam: Neck Supple Pulmonary Resp Exam: Rhonchi, Decreased Bases, Diminished Breath Sounds Cardiology CV Exam: Normal Sinus Rhythm Gastrointestinal/Abdomen GI Exam: Non-Tender, Distended Extremeties Extremities Exam: Pitting Edema, Dependent Edema Neurologic Neuro Exam: Awake Assessment/Plan Problem List: (1) Acute renal failure ICD Codes: N17.9 - Acute kidney failure, unspecified Status: Acute Plan: Patient developed Hypotension,sepsis staph aureus respiratory failure and increase WBC. Had aspiration pneumonia, developed sepsis with ARF again creatinine declined slightly post hydration he also had retroperitoneal bleed Elevated intra abdominal pressures - improved now. 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 He was tried on sodium modeling and hemodialysis combined with ultrafiltration hemodialysis Sunday 2.5 L removed Anemia give Procrit 20 k sq then 10 k with each dialysis He has generalized anasarca K low replace On ventilator s/p Trach Prognosis guarded ? consider hospice or longterm care facility (2) CKD (chronic kidney disease) stage 3, GFR 30-59 ml/min ICD Codes: N18.3 - Chronic kidney disease, stage 3 (moderate) Status: Chronic Plan: Ultrasound revealed chronic kidney disease there is no kidney stones (3) Diabetes ICD Codes: E11.9 - Type 2 diabetes mellitus without complications Plan: Continue to monitor (4) Distal end of ulna fracture, closed ICD Codes: S52.609A - Unspecified fracture of lower end of unspecified ulna, initial encounter for closed fracture Status: Acute Plan: Orthopedic is following Problem Qualifiers (1) Acute renal failure: Qualified Codes: N17.9 - Acute kidney failure, unspecified Laura Liao MD Mar 19, 2017 14:33
[2017-03-19] MEDS ORDERED: POTASSIUM CHLOR 20 MEQ PREMIX 100 ML IV ONE (15:00)
--- NOTE | 2017-03-19 16:15 | HHI.HCPN ---
Reason for visit a. To assist with evaluation and management of symptoms including: shortness of breath, pain, debility b. To assist medical decision maker(s) with: better understanding of current medical conditions; weighing benefits/burdens of medical treatment options; making medical treatment decisions. Subjective/Interval History Mr Kerr is a 62 years old male with a past medical history of hypertension, asthma, diabetes, hyperlipidemia, chronic kidney disease and gout. Patient presented to the ED on 01/22/17 complaining of bilateral knee and right arm pain after a mechanical fall 4 or 5 days prior to coming to the ER. Patient has been experiencing progressive weakness of bilateral lower extremities as well as bilateral upper extremities prior to ER visit. Patient seen and assessed in ICU.Patient is now off pressors and sedation. Patient trached and remains on mechanical ventilation. Patient is on CPAP 5/10/ 40% vent settings. Patient is awake, tracking with his eyes, patient was able to answer by shaking his head for "no" when asked if he was not in pain but he is not following commands with all his extremities. Low grade temp with a Tmax of 100.4 degrees F. Central line removed. SBP 130s -140s. O2 saturation high 90s. Laboratory workup revealing WBC 13.3, hemoglobin 8.9, hematocrit 26.6, platelet count 243, sodium 145, potassium 3.0, BUN/creatinine 91/2.33, AST 59, ALT 22, alkaline phosphatase 177, albumin 2.0. Hemodialysis on 03/17/17, 2500ml removed. Nephrology and Infectious disease following. Telephone conversation with patient`s son. Updated on medical status. Case discussed with Dr. Puente. . Family/friend interactions Telephone conversation with patient`s son Davie Kerr. Updated him on patient` s medical status. Discussed probable need for patient to be discharged to a LTAC for ventilator weaning . . Advance Directives Living Will: Never completed Health Care Surrogate: Never completed Durable Power of Movie Editor: Never completed Advance Directive Specifics Documented care wishes: No known documented care wishes have been completed. . Objective Vital Signs Date Time Temp Pulse Resp B/P (MAP) Pulse Ox O2 Delivery O2 Flow Rate FiO2 03/19/17 15:24 97 40 03/19/17 14:00 91 03/19/17 12:00 40 03/19/17 12:00 95 03/19/17 12:00 100.0 94 19 143/83 (103) 97 03/19/17 10:24 40 03/19/17 10:24 97 40 03/19/17 10:00 102 03/19/17 08:00 100 03/19/17 08:00 40 03/19/17 08:00 100.2 100 20 142/80 (100) 98 03/19/17 07:20 97 40 03/19/17 06:29 22 03/19/17 06:00 99 03/19/17 04:09 97 40 03/19/17 04:00 100 03/19/17 04:00 100.4 104 21 142/85 (104) 98 03/19/17 04:00 40 03/19/17 02:00 104 03/19/17 01:02 96 40 03/19/17 00:00 104 03/19/17 00:00 99.6 104 20 134/72 (92) 97 03/19/17 00:00 40 03/18/17 22:00 103 03/18/17 20:30 97 40 03/18/17 20:00 104 03/18/17 20:00 40 03/18/17 20:00 99.7 97 26 137/64 (88) 97 03/18/17 18:00 104 03/18/17 17:28 95 40 03/18/17 16:00 99.5 97 22 129/64 (85) 97 03/18/17 16:00 97 03/18/17 16:00 40 Intake & Output 03/19/17 03/19/17 07:00 19:00 Intake Total 1194 ml Output Total 625 ml Balance 569 ml IV Total 518 ml Tube Feeding 556 ml Tube Irrigant 120 ml Output Urine Total 625 ml # Bowel Movements 5 Physical Exam CONSTITUTIONAL/GENERAL: This is an adequately nourished patient, trached on mechanical ventilation with no sedation. TUBES/LINES/DRAINS: LIJ Vas Cath, PEG tube, Tracheostomy, FC SKIN: No jaundice. Ecchymoses on upper extremities. No wounds seen anteriorly. Afebrile. Not diaphoretic. HEAD: Atraumatic. Normocephalic. EYES: Pupils equal and round, slight reaction.No scleral icterus. No injection or drainage. Fundi not examined. ENT: Intubated and sedated. Nose without bleeding or purulent drainage. Moist oral mucosa. NECK: Trachea midline. Supple, nontender. CARDIOVASCULAR: Regular rate and rhythm without murmurs, HR 90s, gallops, or rubs. No JVD. RESPIRATORY/CHEST: Symmetric, unlabored respirations. Clear to auscultation. Breath sounds equal bilaterally. No wheezes, rales, or rhonchi. GASTROINTESTINAL: Abdomen soft, non-tender, nondistended. No guarding. Bowel sounds present. GENITOURINARY: Without palpable bladder distension. Sloan catheter in place with cloudy urine. Scrotal edema. MUSCULOSKELETAL: Gout tophi to fingers, knees, elbows and both ankles. Trace edema to extremities. NEUROLOGICAL: Tracheostomy on mechanical ventilation. Patient is tracking with his eyes, patient was able to answer by shaking his head for "no" when asked if he was not in pain but he is not following commands with all his extremities. PSYCHIATRIC: No obvious anxiety/depression. no apparent hallucinations or other psychotic thought process. . Diagnostic Tests Laboratory Laboratory Tests Test 03/17/17 03:53 03/18/17 06:30 03/19/17 03:00 White Blood Count 8.2 TH/MM3 (4.0-11.0) 9.8 TH/MM3 (4.0-11.0) 13.3 TH/MM3 (4.0-11.0) Red Blood Count 2.72 MIL/MM3 (4.50-5.90) 3.02 MIL/MM3 (4.50-5.90) 3.03 MIL/MM3 (4.50-5.90) Hemoglobin 8.0 GM/DL (13.0-17.0) 8.9 GM/DL (13.0-17.0) 8.9 GM/DL (13.0-17.0) Hematocrit 24.0 % (39.0-51.0) 26.3 % (39.0-51.0) 26.6 % (39.0-51.0) Mean Corpuscular Volume 88.2 FL (80.0-100.0) 87.1 FL (80.0-100.0) 87.6 FL (80.0-100.0) Mean Corpuscular Hemoglobin 29.4 PG (27.0-34.0) 29.6 PG (27.0-34.0) 29.4 PG (27.0-34.0) Mean Corpuscular Hemoglobin Concent 33.3 % (32.0-36.0) 34.0 % (32.0-36.0) 33.5 % (32.0-36.0) Red Cell Distribution Width 16.3 % (11.6-17.2) 15.8 % (11.6-17.2) 15.5 % (11.6-17.2) Platelet Count 210 TH/MM3 (150-450) 238 TH/MM3 (150-450) 243 TH/MM3 (150-450) Mean Platelet Volume 8.4 FL (7.0-11.0) 8.7 FL (7.0-11.0) 9.2 FL (7.0-11.0) Neutrophils (%) (Auto) 94.3 % (16.0-70.0) 88.2 % (16.0-70.0) Lymphocytes (%) (Auto) 1.7 % (9.0-44.0) 4.6 % (9.0-44.0) Monocytes (%) (Auto) 3.6 % (0.0-8.0) 6.7 % (0.0-8.0) Eosinophils (%) (Auto) 0.0 % (0.0-4.0) 0.2 % (0.0-4.0) Basophils (%) (Auto) 0.4 % (0.0-2.0) 0.3 % (0.0-2.0) Neutrophils # (Auto) 7.8 TH/MM3 (1.8-7.7) 8.6 TH/MM3 (1.8-7.7) Lymphocytes # (Auto) 0.1 TH/MM3 (1.0-4.8) 0.4 TH/MM3 (1.0-4.8) Monocytes # (Auto) 0.3 TH/MM3 (0-0.9) 0.7 TH/MM3 (0-0.9) Eosinophils # (Auto) 0.0 TH/MM3 (0-0.4) 0.0 TH/MM3 (0-0.4) Basophils # (Auto) 0.0 TH/MM3 (0-0.2) 0.0 TH/MM3 (0-0.2) CBC Comment DIFF FINAL DIFF FINAL AUTO DIFF Differential Comment FINAL DIFF MANUAL Blood Urea Nitrogen 79 MG/DL (7-18) 76 MG/DL (7-18) 91 MG/DL (7-18) Creatinine 2.52 MG/DL (0.60-1.30) 2.30 MG/DL (0.60-1.30) 2.33 MG/DL (0.60-1.30) Random Glucose 294 MG/DL (74-106) 320 MG/DL (74-106) 322 MG/DL (74-106) Calcium Level 8.9 MG/DL (8.5-10.1) 8.6 MG/DL (8.5-10.1) 7.9 MG/DL (8.5-10.1) Phosphorus Level 4.5 MG/DL (2.5-4.9) Magnesium Level 2.0 MG/DL (1.5-2.5) Sodium Level 149 MEQ/L (136-145) 145 MEQ/L (136-145) 145 MEQ/L (136-145) Potassium Level 3.3 MEQ/L (3.5-5.1) 3.1 MEQ/L (3.5-5.1) 3.0 MEQ/L (3.5-5.1) Chloride Level 112 MEQ/L (98-107) 108 MEQ/L (98-107) 110 MEQ/L (98-107) Carbon Dioxide Level 19.6 MEQ/L (21.0-32.0) 25.1 MEQ/L (21.0-32.0) 25.7 MEQ/L (21.0-32.0) Anion Gap 17 MEQ/L (5-15) 12 MEQ/L (5-15) 9 MEQ/L (5-15) Estimat Glomerular Filtration Rate 26 ML/MIN (>89) 29 ML/MIN (>89) 29 ML/MIN (>89) Random Vancomycin Level 27.6 COMMENT Differential Total Cells Counted 100 Neutrophils % (Manual) 76 % (16-70) Band Neutrophils % 18 % (0-6) Lymphocytes % 3 % (9-44) Monocytes % 1 % (0-8) Neutrophils # (Manual) 12.8 TH/MM3 (1.8-7.7) Metamyelocytes 2 % (0-1) Toxic Granulation 1+ (NORMAL) Platelet Estimate NORMAL (NORMAL) Platelet Morphology Comment NORMAL (NORMAL) Total Protein 5.5 GM/DL (6.4-8.2) Albumin 2.0 GM/DL (3.4-5.0) Alkaline Phosphatase 177 U/L (45-117) Aspartate Amino Transf (AST/SGOT) 59 U/L (15-37) Alanine Aminotransferase (ALT/SGPT) 22 U/L (12-78) Total Bilirubin 0.6 MG/DL (0.2-1.0) Result Diagram: 03/19/17 0300 03/19/17 0300 Procedures 01/25/2017- Retrievable IVC Filter placement 01/26/17-lumbar puncture with fluoroscopy-by interventional radiology 02/01/17- lumbar puncture fluoroscopy by interventional radiology 02/10/17- Endotracheal Intubation 02/10/17-left IJ central venous line placed 02/10/17-left femoral arterial line placed 02/11/17-Diagnostic and therapeutic bronchoscopy with bronchoalveolar lavage 02/11/17-Left upper extremity incision and debridement with excision of septic cephalic vein 02/13/17- Extubated 02/20/17- endotracheal intubation 02/20/17- Left subclavian central line placement 02/20/17-Right radial A-line placement 02/22/17-EGD/colonoscopy 02/28/17-right radial a line 02/28/17- Endotracheal intubation 02/28/17- right sided introducer catheter placement 02/28/17- Right IJ central line placement 02/28/17-Right chest tube placement 02/28/17- Embolization of inferior and superior sacral branches of right internal iliac artery 03/01/17- Hemodialysis access catheter 03/03/17-Right IJ central line placement 03/11/17-Extubated 03/13/17- Endotracheal intubation 03/14/17-Tracheostomy placement 03/15/17-PEG tube placement . Assessment and Plan Disease Oriented Problem List: (1) Acute respiratory failure (2) Septic shock (3) Aspiration pneumonia (4) Acute renal failure (5) CKD (chronic kidney disease) stage 3, GFR 30-59 ml/min (6) Cardiomyopathy (7) DVT of lower extremity, bilateral (8) Thrombophlebitis arm (9) Diabetes mellitus (10) Gout (11) HTN (hypertension) (12) Hyperlipidemia Symptom Scale: (1) Shortness of breath 0-10 Scale: Unable to quantify Comment: Currently trached and on mechanical ventilation . (2) Debility 0-10 Scale: Unable to quantify Comment: Progressive. . (3) Pain 0-10 Scale: Unable to quantify Comment: History of falls, gout, arthritis, and currently bedbound. . Pertinent Non-Medical Issues Psychosocial:Patient was born and raised in [place], [place]. Patient was once for 20 years, now and has 2 adult sons. 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 He recently resigned due to failing health. Spiritual: No advent affiliation Legal: Per [place] statutes, in the absence of written advanced directives healthcare proxy decision making falls to the patient's 2 adult children. Patient's son (Davie) lives locally and wishes to participate in the role of the healthcare proxy decision maker. Palliative care has attempted to contact the patient's son, Arnel, who lives in [facility]; awaiting return phone call. Ethical issues impacting care: No known ethical issues impacting care at this time. . Important Contacts Son-Davie Kerr - Son-Arnel Kerr- -cell -home Sister-Deb Curry . Prognosis Mr Kerr is a 62 years old male with a past medical history of hypertension, asthma, diabetes, hyperlipidemia, chronic kidney disease and gout. Patient presented to the ED on 01/22/17 complaining of bilateral knee and right arm pain after a mechanical fall 4 or 5 days prior to coming to the ER. Clinical course complicated with increased weakness leading to numerous diagnostic work ups for possible transverse myelitis, DVTs, retroperitoneal hematoma, aspiration pneumonia, intubation x 4 times, septic and hemorrhagic shock requiring support with pressors and multiple pRBC, FFP transfusions as well as platelets and cryo , renal failure requiring hemodialysis and sacral wound Given ongoing comorbidities, and prolonged hospitalization, patient remains at risk for further complications, deterioration and decline leading to . Code Status: Full Code Plan PLAN: Legal decision maker: Patient is currently intubated, sedated on a mechanical ventilation and is not able to make any medical decisions for himself at this time. It is unclear if patient will regain capacity to make medical decisions at this time. Patient has 2 adult sons Davie Kerr and Arnel Kerr. According to [place] Statute, his two aforementioned sons will serve as his health care proxys. 3 telephone messages have been left for son Arnelto discuss his desire to act as a HCP. Patient`s son Davie is acting in the role of HCP decision maker independently at this time given that he is the one who is reasonably available for consultation. Goals: 03/19/17- Remain Aggressive. Discussed probable need for patient to be discharged to a facility that focuses on weaning him off the ventilator. CODE STATUS: Full Code SYMPTOMS: * Shortness of breath: Multifactorial. Patient has had aspiration pneumonia. Patient has been intubated 4 times this hospitalization. Patient has a tracheostomy. On CPAP trials. FIO2 40%. Patient on duonebs. Patient also on Hydrocortisone 50mg q 6 hours. May probably require weaning off the ventilator at an LTAC. * Pain: Patient presented initially complaining of pain to right wrist and bilateral knees after a mechanical fall. Patient has a history of gout, arthritis, multiple falls and is currently bedbound. Denied pain by shaking his head for "no". Patient on Oxicodone q 4 hours ATC. Patient also on Hydrocortisone. * Debility: Progressive. Patient has had decline in his health for the past 4 months, including progressively increased weakness and difficulty ambulating and prolonged hospitalization with multiple setbacks. Patient remains at high risk for further physical deconditioning and debility. PT consulted. Palliative care will continue to follow the patient during hospital course as condition evolves, to assist patient/decision-maker with understanding of their medical conditions, weighing benefits/burdens of treatment options, for clarification of goals of treatment. Additionally will assist with any symptoms of palliative concern. . Attestation To help prompt me to consider important information that might be impacting today's encounter and assessment, information from prior notes written by myself or my colleagues may have been "brought forward" into today's note. My signature on this note, however, is an attestation that I personally performed the exam, history, and/or decision-making noted today, and, unless otherwise indicated, the interactions with patient, family, and staff as well as the review of records all occurred today. I also attest that the listed assessment and stated plan reflect my best clinical judgment today based on the combination of historical information, prior notes, and today's exam/ interactions. When time spent is documented, it refers only to time spent today by the signer, or if indicated, combined time spent today by collaborating physician/nurse practitioner. Aftab Cratwright Mar 19, 2017 16:15
[2017-03-19] MEDS: ATORVASTATIN 10 MG TAB PO SCH (20:33)
[2017-03-20] VITALS (21 sets, daily range): BP systolic 138–174; BP diastolic 81–97; PULSE 70–87; RESP 16–27; TEMP 99.1–99.7; O2SAT 95–100
[2017-03-20] MEDS: HYDROCORTISONE SOD SUCCINATE 100 MG VIAL IV PUSH SCH ×4 (01:15→17:54)
[2017-03-20] MEDS: cefTAZidime INJ 2,000 MG in SODIUM CHLORIDE 0.9% INJ 100 ML IV SCH ×2 (01:16→12:39)
[2017-03-20] MEDS: INSULIN NovoLIN REGULAR SUPPLEMENTAL SCALE SQ SCH ×6 (01:16→20:42)
[2017-03-20] MEDS: oxyCODONE HCL ORAL CONC 5 MG/0.25 ML SYRINGE PO SCH ×6 (01:17→22:00)
[2017-03-20 04:09] LABS: BICARBONATE 24.4 MEQ/L (21.0-32.0)
[2017-03-20 04:11] LABS: POTASSIUM 2.6 MEQ/L (3.5-5.1)
[2017-03-20] MEDS: POTASSIUM CHLOR 20 MEQ PREMIX 100 ML IV SCH ×2 (05:16→08:06)
[2017-03-20] MEDS: METOCLOPRAMIDE HCL 10 MG/2 ML VIAL IV PUSH SCH ×3 (05:16→21:23)
[2017-03-20] MEDS: ATENOLOL 25 MG TAB PO SCH ×2 (08:04→21:32)
[2017-03-20] MEDS: LANSOPRAZOLE SOLUTAB 30 MG TAB NG SCH ×2 (08:04→20:27)
[2017-03-20] MEDS: FUROSEMIDE 40 MG/4 ML VIAL IV PUSH SCH ×2 (08:04→18:01)
[2017-03-20] MEDS: LACTOBACILLUS ACIDOPHILUS TAB PO SCH ×3 (08:04→17:55)
[2017-03-20] MEDS: INSULIN DETEMIR 100 UNITS/ML VIAL SQ SCH ×2 (08:05→21:24)
[2017-03-20] MEDS: SODIUM CHLORIDE 0.9% FLUSH 10 ML FLUSH IV FLUSH SCH ×3 (08:05→20:42)
[2017-03-20] MEDS: CHLORHEXIDINE 0.12% (ORAL KIT) 15 ML CUP MT SCH ×2 (08:06→20:42)
--- NOTE | 2017-03-20 10:15 | HHI.NPPN ---
Subjective History of Present Illness 61-year-old with history of urinary stone Additional Remarks Patient had trach on vent Review of Systems General Constitutional: Fatigue Objective Data Data 03/20/17 03/21/17 19:00 07:00 Intake Total 100 ml Balance 100 ml IV Total 100 ml Vital Signs Date Time Temp Pulse Resp B/P (MAP) Pulse Ox O2 Delivery O2 Flow Rate FiO2 03/20/17 09:32 95 40 03/20/17 08:00 87 03/20/17 08:00 99.1 87 20 158/95 (116) 99 03/20/17 07:31 98 40 03/20/17 06:58 97 40 03/20/17 06:17 20 03/20/17 06:00 78 03/20/17 04:09 99 40 03/20/17 04:00 99.2 74 16 157/81 (106) 99 03/20/17 04:00 40 03/20/17 04:00 74 03/20/17 02:00 76 03/20/17 00:22 100 40 03/20/17 00:00 40 03/20/17 00:00 86 03/20/17 00:00 99.3 86 18 153/84 (107) 99 03/19/17 22:00 82 03/19/17 20:00 40 03/19/17 20:00 99.2 86 18 141/81 (101) 97 Arterial Line 03/19/17 20:00 86 03/19/17 19:58 98 40 03/19/17 18:42 98 40 03/19/17 18:00 92 03/19/17 16:00 40 03/19/17 16:00 100.0 92 19 148/87 (107) 97 03/19/17 16:00 92 03/19/17 15:24 97 40 03/19/17 14:00 91 03/19/17 12:00 40 03/19/17 12:00 95 03/19/17 12:00 100.0 94 19 143/83 (103) 97 03/19/17 10:24 40 03/19/17 10:24 97 40 -: 03/19/17 0300 03/20/17 0259 Physical Exam General Appearance: Pale Eyes Eye Exam: Pupils Equal Throat Throat Exam: Oral Mucosa [place] & Moist Neck Neck Exam: Neck Supple Pulmonary Resp Exam: Rhonchi, Decreased Bases, Diminished Breath Sounds Cardiology CV Exam: Normal Sinus Rhythm Gastrointestinal/Abdomen GI Exam: Non-Tender, Distended Extremeties Extremities Exam: Pitting Edema, Dependent Edema Neurologic Neuro Exam: Awake Assessment/Plan Problem List: (1) Acute renal failure ICD Codes: N17.9 - Acute kidney failure, unspecified Status: Acute Plan: Patient developed Hypotension,sepsis staph aureus respiratory failure and increase WBC. Had aspiration pneumonia, developed sepsis with ARF again creatinine declined slightly post hydration he also had retroperitoneal bleed Elevated intra abdominal pressures - improved now. 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 care and possible dialysis (2) CKD (chronic kidney disease) stage 3, GFR 30-59 ml/min ICD Codes: N18.3 - Chronic kidney disease, stage 3 (moderate) Status: Chronic Plan: Ultrasound revealed chronic kidney disease there is no kidney stones (3) Diabetes ICD Codes: E11.9 - Type 2 diabetes mellitus without complications Plan: Continue to monitor (4) Distal end of ulna fracture, closed ICD Codes: S52.609A - Unspecified fracture of lower end of unspecified ulna, initial encounter for closed fracture Status: Acute Plan: Orthopedic is following Problem Qualifiers (1) Acute renal failure: Qualified Codes: N17.9 - Acute kidney failure, unspecified Laura Liao MD Mar 20, 2017 10:15
--- NOTE | 2017-03-20 10:17 | HHI.CCPN ---
Subjective Remarks/Hospital Course Date of admission: 01/22 Date of critical care medicine consult 02/10 due to acute hypoxemic respiratory failure requiring emergent intubation 62-year-old male with a past medical history of hypertension, hyperlipidemia, diabetes mellitus, gout, uric acid kidney stones, kidney disease of unknown stage who originally presented to [facility] emergency department on 01/22 after a fall in which he sustained a right distal ulna fracture. He had been experiencing a gradual primarily lower extremity weakness as well as upper extremity weakness that was progressive. Neurology consult was obtained. MRI revealed no acute stroke. He had multifocal white matter changes. Tiny lacunar infarcts of the brainstem. Lumbar MRI report states L4-L5 disc protrusion with cetnral canal stenosis. Dr. Blackwell evaluated and states no cord compression on MRI C/T spine and recommended nonoperative management. Symptoms were felt to be consistent with transverse myelitis and he underwent Solumedrol 250 mg IV q6 hours 01/27-02/02. He also was found to have occlusive thrombus in the bilateral posterior tibial veins. Heparin was being avoided because he had traumatic lumbar puncture on 01/26 and 02/01. IVC filter was placed 01/25. He was undergoing physical therapy, reportedly making some improvements with plan to eventually discharged home with his son (max assist standing, and bed to chair per PT note). Apparently he had some vomiting the evening of 02/09 and additional vomiting on 02/10. He had a fever 102.8 on 02/09. Last recorded bowel movement was 02/03. Tonight he had acute onset of severe hypoxemia and respiratory distress. [facility] called and he was brought emergently to [facility] where his sats were 64% on 100% nonrebreather with mean arterial pressure 44. He was emergently intubated, CVL and art line placed. He is in septic shock. SUBJ: 02/11: Patient remains intubated sedated, critically ill. FiO2 reduced to 80% after increasing PEEP to 12. In severe septic shock Levophed at 16 mcg/m, vasopressin at 0.04 international units. D/W vascular surgery Dr. Enciso. He performed bedside Left upper extremity incision and debridement and excision of septic cephalic vein. 02/12: Remains intubated sedated profoundly septic, in shock on vasopressin and 7 mcg/min Levophed. FiO2 has improved to 45%, WBC count remains elevated with 20 ,000 white count significant left shift. Slight improvement in creatinine 2.9 urine output 750 ml 24 hours. 2-D echo shows LV ejection fraction 20-25%, no vegetation reported. Blood cultures 4 staph aureus. Wound culture pending 02/13: Remains critically ill but stable to improving. WBC count is down to 16, creatinine improving to 2.36. Off all pressors. Urine output also improving. 1.5L in 24 hours 02/14: Extubated 02/13. Tolerating well. WBC now down to 12.8. Creat improving 2.3 to 2. UO 3.4L. remains off all pressors. Was started on Precedex yesterday night for agitation, currently on 0.5 g per KG per hour. Chest x-ray shows left more than right air space disease 02/20/17 Re consult: 62-year-old male who was originally admitted for lower extremity weakness and found to have what was thought to be possible transverse myelitis. His hospital course his included a healthcare associated pneumonia, septic thrombophlebitis, DVT. He was most recently in the hospital floor where he had significant nausea and vomiting and diarrhea. His C. difficile test was recently negative. However, he has experienced worsening acute on chronic renal failure, hypotension, tachycardia, and severe hypoxemia. He did have a bout of vomiting earlier today, and his hospitalist attending suspects that he may have aspirated. He arrives by rapid response to the ICU with a nonrebreather in place in severe respiratory distress with SPO2 of 85%. I emergently intubate the patient, see separate procedure note for details. At this point the patient was hypotensive and tachycardic. He does have a history of an EF of 20%, however clinically he appears in florid septic shock. I placed central line and arterial line started vasopressors and gentle IV fluid resuscitation with 1 L of LR. Patient today was empirically broadened to vancomycin and Zosyn from his oxacillin which was initially treating MSSA bacteremia. He is recultured. Critical-care medicine is consulted to evaluate and manage his worsening multiorgan system failure and decompensated septic shock 02/21: Patient remains intubated sedated. Becomes anxious tachypnea on sedation lightening. Chest x-ray shows mild left lower lobe infiltrate. WBC count is slightly improved today from 23.2 t0 21. C Diff negative. UO adequate, creat slightly worsening. 1.57 today 02/22: Remains intubated sedated tolerated CPAP yesterday, plan is for EGD/ Colonscopy. WBC count back to normal. UO adequate. Creat stable 02/23: Tolerating CPAP trials following commands. Will do a spontaneous breathing trials. Status post EGD colonoscopy yesterday -Gastritis, esophagitis. Diverticulosis and multiple polyps. Urine output adequate but creatinine increasing to 1.7 with patient requiring multiple straight catheterization. We'll reinsert Sloan. 02/24: Breathing comfortably 24 hours after extubation. Protects airway well. 02/25: Excoriate bottom, will place rectal FMS. Start pureed diet. 02/26: Afebrile. Complaining of nausea and vomiting this afternoon. Increased stool output. Continue potassium replacement today. 02/27: 10 PM overnight, acutely hypotensive. Received 3 units PRBCs. Antibiotic coverage broadened to piperacillin/tazobactam, cortisol and 1 dose of vancomycin. Oxacillin drip currently on hold. Symptomatically, patient continues to vague abdominal pain/nausea vomiting which is unchanged for the past several days. Lipase elevated yesterday. Lactic acid normal. Troponin normal. Urinary retention after removal of Sloan. Straight catheter 1300. Cc 02/28: New diagnosis large retroperitoneal hematoma. Received 10 PRBC, 14 FFP, 2 platelets, 1 cryo-, 6 g calcium chloride, 2 is magnesium sulfate and 4 mg Bumex. CTA abdomen revealed possible arterial bleeds iliac, lumbar. Patient is currently on norepinephrine and epinephrine drips and possible need right nephrostomy tube placement due to large hematoma compressing ureter. Intra-abdominal bladder pressures are currently 13 03/01: Afebrile. Received 25 g albumin and 1 unit PRBCs overnight. Intra- abdominal bladder pressures currently 19. Currently on 3 micrograms per minute of norepinephrine. Rhrbn-lv-vuod 1 out of 4 on 4 mics grams per kilogram per minute of cisatracurium. 03/02: Slightly hypothermic overnight. Hemoglobin appears to have stabilized. Troponin bump overnight likely secondary to demand ischemia from hypotension. Hemodynamically stable off all vasopressors. 03/03: Received 1 PRBCs overnight. 3 units currently. Off all vasopressors. Likely rebleeding. Stool is dark. 03/04: Remains unstable. Ventilator dependent. 03/05: afebrile. hgb stable. 03/06: bumex drip started overnight. good uop after bumex initiated. still grossly volume overloaded. Cr downtrending. more awake with transition to propofol. still too volume overloaded to tolerate extubation. hgb stable. 03/07: Afebrile. Tolerating tube feeds at goal with Nepro. Positive BM. On low-dose fentanyl and propofol drips. Potassium currently being replaced. 03/08: Eyes will open on ventilator. Afebrile. Tolerating tube feeding. Failed PSV trial yesterday due to apnea. 03/09: Following commands. Tmax 101. Tolerating tube feeding. One hour PSV trial yesterday. Currently tolerating well so far today 1.5 hours 03/10: Low-grade temperatures. Tolerating PSV trial 10 hours yesterday. Currently at 5/5 at 35%. We'll probably attempt extubation a.m. after hemodialysis. 03/11: Extubated currently in 4 L nasal cannula. Thick secretions thick clear with cough. Currently afebrile. Tolerating diet previously. Subjective 03/12: Sleepy this morning but arouses. Following commands. Refusing diet at the present time. On 2 L nasal cannula. 03/13: Patient reintubated last night for worsening respiratory status. Currently sedated on mechanical ventilation. Became hypotensive following intubation and is on Levophed 20 mics per minute. 03/14: Sedated, orally intubated on mech vent at the time of my evaluation this AM, subsequently underwent perc trach placement. Remains on levophed for pressor support. Transfused 1 unit PRBCs today. Persistent 03/15: Trach site clean, dry. CXR with bilateral basilar infiltrates. 03/16: Pulmonary congestion persists. Clinical condition not improving. Prognosis becoming increasingly bleak. 03/17: Glucose intolerance worse. No improvement in neurological function. 03/18: Remains on mechanical ventilation via tracheostomy. Off pressors now. Neurologic status remains poor. 03/19: Drowsy, encephalopathic, arousable. On mechanical ventilation via tracheostomy. Levemir increased for hyperglycemia today. Remains off pressors 03/20: More awake, moves both upper extremities. On mechanical ventilation via tracheostomy. Daily C Pap trials ongoing. Objective Vital Signs Date Time Temp Pulse Resp B/P (MAP) Pulse Ox O2 Delivery O2 Flow Rate FiO2 03/20/17 09:32 95 40 03/20/17 08:00 87 03/20/17 08:00 99.1 20 158/95 (116) Intake and Output 03/20/17 03/20/17 03/21/17 08:00 16:00 00:00 Intake Total 762 ml Output Total 1350 ml Balance -588 ml Result Diagram: 03/19/17 0300 03/20/17 0259 Imaging Last 48 hours Impressions Chest X-Ray 03/14/17 0000 Signed Impressions: Service Date/Time: Tuesday, March 14, 2017 13:41 - CONCLUSION: 1. Tracheostomy in good position. 2. Left lower lung infiltrates and left pleural effusion. Candido Patton MD Chest X-Ray 03/13/17 0000 Signed Impressions: Service Date/Time: Monday, March 13, 2017 01:52 - CONCLUSION: 1. Bibasilar densities. 2. Endotracheal tube tip not well-seen but appears to be in good position. Armando Dodd MD Last Impressions Chest X-Ray 03/11/17 0600 Signed Impressions: Service Date/Time: Saturday, March 11, 2017 05:10 - CONCLUSION: 1. No significant change in the bibasilar densities. 2. Small left effusion. Benjamin Person MD Aortography 02/28/17 0000 Signed Impressions: Service Date/Time: Tuesday, February 28, 2017 08:01 - CONCLUSION: 1. Active hemorrhage from distal right lateral sacral and iliolumbar branches successfully coil and Gelfoam embolized, as above. Juan Bhakta MD Abdomen/Pelvis CT 02/28/17 0000 Signed Impressions: Service Date/Time: Tuesday, February 28, 2017 06:51 - CONCLUSION: 1. The right retroperitoneal hematoma has increased in size, as above. There are 2 serpiginous arterially enhancing structures visualized, one in the right psoas muscle and another extending into the hematoma at the right iliac fossa. These could represent sites of continued active bleeding. 2. Stable moderate size left and small right pleural effusion with associated compressive atelectasis. 3. Stable small volume of free fluid in the abdomen and pelvis. There is also anasarca. The findings concerning the retroperitoneal hematoma were discussed with Dr. Aguiar via telephone at approximately 7: 10 AM on 02/28/2017. Angelo Allen MD Chest CT 02/27/17 0000 Signed Impressions: Service Date/Time: Monday, February 27, 2017 18:12 - CONCLUSION: 1. Bilateral pleural effusions with bibasilar atelectasis, left greater than right. Tom Sanchez MD Abdomen X-Ray 02/26/17 0000 Signed Impressions: Service Date/Time: Sunday, February 26, 2017 14:52 - CONCLUSION: 1. Nonobstructive bowel gas pattern. Juan Bhakta MD Upper Extremity Ultrasound 02/10/17 0000 Signed Impressions: Service Date/Time: Friday, February 10, 2017 18:46 - CONCLUSION: Occlusive thrombus in the cephalic and basilic veins. Benjamin Person MD Lung Scan-V Nuclear Medicine 02/10/17 0000 Signed Impressions: Service Date/Time: Friday, February 10, 2017 22:17 - CONCLUSION: Low probability pulmonary embolism. Candido Patton MD Head CT 02/10/17 0000 Signed Impressions: Service Date/Time: Friday, February 10, 2017 23:51 - CONCLUSION: Negative noncontrast CT brain. Candido Patton MD Wrist X-Ray 02/06/17 0000 Signed Impressions: Service Date/Time: Monday, February 06, 2017 12:50 - CONCLUSION: Minimally displaced distal radius and ulnar fractures. Armando Dodd MD Lumbar Puncture Fluoroscopy 02/01/17 0000 Signed Impressions: Service Date/Time: January 09:35 - CONCLUSION: Uncomplicated fluoroscopically guided lumbar puncture. CSF was clear. Nabeel Peralta MD Head Magnetic Resonance Angiography 01/27/17 0000 Signed Impressions: Service Date/Time: Friday, January 27, 2017 10:33 - CONCLUSION: No intracranial vascular abnormality is identified. There is no aneurysm visualized. Angelo Allen MD IVC Filter Placement X-Ray 01/25/17 0000 Signed Impressions: Service Date/Time: January 10:29 - CONCLUSION: Uncomplicated inferior vena cava filter placement as above. Yung Fowler MD Thoracic Spine MRI 01/24/17 0000 Signed Impressions: Service Date/Time: Tuesday, January 24, 2017 22:29 - CONCLUSION: 1. Mild degenerative spondylosis most prominently at T11-L1 with slight effacement of the anterior thecal sac and left lateral recess. No significant neural foraminal stenosis. 2. No acute fracture. Juan Bhakta MD Renal Ultrasound 01/23/17 Signed Impressions: Service Date/Time: Monday, January 23, 2017 08:53 - CONCLUSION: 1. Evidence of chronic parenchymal disease of both kidneys. No obstructive uropathy or other acute abnormality demonstrated. 2. Trace ascites, nonspecific. Angelo Garrido MD Lumbar Spine MRI 01/23/17 Signed Impressions: Service Date/Time: Monday, January 23, 2017 17:01 - CONCLUSION: 1. At L4-5 is a broad-based disc protrusion with severe central canal and lateral recess stenosis and flattening of the exiting right L4 nerve root. 2. L5-S1 there is a disc protrusion and moderate stenosis with flattening of the exiting L5 nerve roots bilaterally. 3. At L3-4 there is a moderate to severe central stenosis and lateral recess stenosis with mild foraminal stenosis. 4. No acute fracture or spondylolisthesis. Trace Holloway MD Lower Extremity Ultrasound 01/23/17 Signed Impressions: Service Date/Time: Monday, January 23, 2017 09:53 - CONCLUSION: Bilateral focal lower extremity DVT involving the posterior tibial veins. Angelo Garrido MD Cervical Spine MRI 01/23/17 Signed Impressions: Service Date/Time: Monday, January 23, 2017 17:01 - CONCLUSION: 1. Multilevel cervical spine degenerative changes as above. 2. Mild degrees of spinal stenosis at C3/C4-C6/C7. No cord compression or cord signal abnormality. 3. Age indeterminate left paracentral/foraminal disc protrusion at C6/C7. 4. Multilevel foraminal stenosis, most severe on the left at C6/C7. Please see individual levels above. 5. No fracture or subluxation of the cervical spine. Angelo Garrido MD Brain MRI 01/23/17 Signed Impressions: Service Date/Time: Monday, January 23, 2017 17:01 - CONCLUSION: 1. No acute stroke or other acute intracranial abnormality demonstrated. 2. Moderate severity chronic white matter changes, nonspecific but most likely related to chronic small vessel disease. 3. Few scattered tiny lacunar infarcts of the brainstem. 4. Given the findings are not entirely specific, clinical evaluation for possible multiple sclerosis recommended. Angelo Garrido MD Knee X-Ray 01/22/[id number] Signed Impressions: Service Date/Time: Sunday, January 22, 2017 21:17 - CONCLUSION: 1. Evidence of moderate to large joint effusion. 2. No acute fracture or malalignment. 3. Mild 3 compartment osteoarthritic change. Benjamin Person MD Hip and Pelvis X-Ray [id number]/22/[id number] Signed Impressions: Service Date/Time: Sunday, January 22, 2017 21:10 - CONCLUSION: 1. Mild to moderate degenerative change of both hips with no acute fracture or malalignment. There is flattening and remodeling of the right humeral head. Benjamin Person MD Objective Remarks GENERAL: 62-year-old male, resting in bed, on mechanical ventilation via tracheostomy HEENT: Normocephalic. Atraumatic. Pupils equal, round, reactive. NECK: Tracheostomy in place. Obese. left IJ hemodialysis catheter clean dry and intact CHEST: on mechanical ventilation via tracheostomy, air entry decreased bilaterally at bases, persistent scattered rhonchi bilaterally, no wheezing CARDIOVASCULAR: S1-S2 regular, no gallop or murmur ABDOMEN distended. No rigidity. Umbilical hernia is reducible. No guarding. PEG tube in place : Positive scrotal edema MUSCULOSKELETAL: Pulses 2+. 1+ bilateral upper and lower extremity edema. Wound VAC on left upper extremity NEUROLOGICAL: Drowsy/arousable, on mechanical ventilation via tracheostomy.. Moves 4 limbs weakly to stimulation. Procedures IVC filter placement 01/25/2017 LP 01/26/2017 Date of Insertion: Mar 03, 2017 Line: Central Venous Catheter Side: Right Location: Internal, Jugular A/P Problem List: (1) Septic shock ICD Code: A41.9 - Sepsis, unspecified organism; R65.21 - Severe sepsis with septic shock Status: Acute (2) Acute respiratory failure ICD Code: J96.00 - Acute respiratory failure, unspecified whether with hypoxia or hypercapnia Status: Acute (3) Thrombophlebitis arm ICD Code: I80.8 - Phlebitis and thrombophlebitis of other sites (4) Aspiration pneumonia ICD Code: J69.0 - Pneumonitis due to inhalation of food and vomit Status: Acute (5) Atelectasis of left lung ICD Code: J98.11 - Atelectasis Status: Acute (6) Quadriparesis ICD Code: G82.50 - Quadriplegia, unspecified Status: Acute (7) DVT (deep venous thrombosis) ICD Code: I82.409 - Acute embolism and thrombosis of unspecified deep veins of unspecified lower extremity (8) Altered mental status ICD Code: R41.82 - Altered mental status, unspecified Status: Acute (9) CKD (chronic kidney disease) stage 3, GFR 30-59 ml/min ICD Code: N18.3 - Chronic kidney disease, stage 3 (moderate) Status: Chronic (10) Acute renal failure ICD Code: N17.9 - Acute kidney failure, unspecified Status: Acute (11) Diabetes mellitus ICD Code: E11.9 - Type 2 diabetes mellitus without complications Status: Chronic (12) Distal end of ulna fracture, closed ICD Code: S52.609A - Unspecified fracture of lower end of unspecified ulna, initial encounter for closed fracture Status: Acute (13) Gout ICD Code: M10.9 - Gout, unspecified Status: Chronic Assessment and Plan NEURO/PSYCH: Acute metabolic encephalopathy- persistent Quadriparesis secondary to suspected transverse myelitis Recurrent falls Pain secondary to retroperitoneal hematoma. Suspected transverse myelitis. Received methylprednisolone 250 mg IV every 6 hours 01/27-02/02, started back on hydrocortisone 02/21/17, initially tapering to 50 mg IV every 8 hours starting received 1 dose at 2100 prior to becoming hypotensive. weaning hydrocortisone taper and stopped 03/09. Resumed hydrocortisone 50mg IV Q6hrly on 03/14 as patient became hypotensive following intubation on 03/13 requiring levophed. LP 01/26 and 02/01. CSF culture negative 01/26, 02/01 Oligoclonal bands negative. CSF/serum IgG index is not elevated. VDRL nonreactive. Cryptococcal antigen negative. Brain MRI 01/23 no acute stroke. Few scattered lacunar infarcts of the brainstem. Moderate chronic white matter changes. MRI cervical/thoracic spine- mild spinal stenosis C3/C4 to C6/C7. No cord compression. RPR negative Neurology has been following, Dr. Crenshaw. Repeat CT brain 02/10 - negative Titrate off sedation following tracheostomy as tolerated. Continue PT/OT RESP: Acute hypoxemic respiratory failure Healthcare associated pneumonia/Aspiration Pneumonia Right-sided chest tube placed for pleural effusion. continue mechanical ventilation, vent bundle, Albuterol/ipratropium aerosols every 6 hours with albuterol aerosols every 2 hours prn VQ scan 02/10 low probability for PE. CT chest 02/10 - left lower lobe collapse and consolidation. CT chest 02/27 revealed right greater than left pleural effusions. Extubated 02/23. Intubated 02/28. Extubated 03/11, Reintubated on 03/13. 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 Failed attempt to wean successfully due to volume overload and multiple organ failure. underwent perc tracheostomy 03/14. CV: Severe sepsis - resolved. Systolic heart failure likely chronic with ejection fraction 20-25% Hyperlipidemia History of hypertension Mild TR Sinus tachycardia Elevated troponin likely type II demand ischemia Restarted on Levophed on 03/09 for following intubation, titrated off after starting hydrocortisone. Started hydrocortisone stress dose on 03/14 (as patient has been on steroids and was just tapered off on 03/09.) Holding beta yani and amlodipine in light of hypotension. atorvastatin 10 mg by mouth daily for dyslipidemia. Troponin 0.[address]-T changes. 2-D echocardiogram 01/11 revealed EF 20-25%. Mild TR. Pulmonary arterial pressures were normal around 20 Troponin 6.55 on 03/02. Likely will need stress test of heart once stable. Cannot anticoagulate due to retroperitoneal hematoma at the present time Currently on furosemide 40 mg IV twice a day per nephrology. GI: Large right retroperitoneal hematoma Erosive esophagitis Adematous/hyperplastic colon polyps Severe acute protein calorie malnutrition Nausea/vomiting - resolved. Diarrhea Gastritis Diverticulosis Internal and external hemorrhoids Hiatal hernia Elevated lipase 02/27 CT chest/abdomen and pelvis - 9.4 x 7.5 renal and 16 x 12 cm right psoas muscle hematoma. Fluid around liver and spleen. Right-sided nephrolithiasis CTA abdomen 02/28 - possible blushing around iliac/lumbar vessels Discussed with IR. s/p attempted embolization CT abdomen and pelvis 02/10 atrophic left kidney. Bilateral inguinal hernias fat- containing. Nonobstructing 12 mm right kidney stone repeat CT abd/pelvis did not show evidence of obstruction. patient clinically has been having diarrhea (c. diff negative 02/19). also with nausea/vomiting of unclear etiology. EGD/Colonoscopy-02/22/17 showed gastritis esophagitis, hiatal hernia, diverticulosis and multiple polyps in descending colon and sigmoid which were snared biopsied. Biopsy pending Dr. Lewis consulted for intervention if needed for elevated IAP. will continue to check as needed Previously on on tube feeds with Nepro, held for trach. Will consult GI for PEG. Lansoprazole for GI prophylaxis FEN/RENAL: Acute kidney injury in the setting of Chronic kidney disease stage 3-4 History of uric acid kidney stones with prior stent BPH Nonfunctioning left kidney Acute intravascular volume overload Hypernatremia Hypophosphatemia Sloan placed due to urinary retention and worsening creatinine. Monitor intake and output q1hr. Monitor electrolytes. RIOS/SPEP negative. 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 Recommended nephrostomy tube if obstruction Nephrology consulted, hemodialysis per nephrology. Due to acute illness holding tamsulosin 0.4 mg by mouth daily for BPH Free water 200 mL q4h for hypernatremia ICU electrolyte replacement protocol ID: Septic shock- resolved. Abscess and Suppurative thrombophlebitis left upper extremity MSSA bacteremia Klebsiella UTI ESBL positive Acute aspiration pneumonia/HCAP Previously treated with Bactrim, ertapenem, intermittent vancomycin, nafcillin Blood cultures 2, UA ESBL positive Klebsiella UTI Sputum 03/14 - Pseudomonas came back resistant to imipenem Repeat blood cultures 2 and sputum 03/08 pending. Urine negative. Switched from meropenem to ceftazidime on 03/19, vancomycin IV 1 dose given on 03/19. ID following-Dr. Edwards. HEME: Acute blood loss anemia DVT, bilateral posterior tibial vein, IVC filter Septic thrombophlebitis with occlusive thrombus mid cephalic and basilic vein side Received 10 PRBC, 14 FFP, 2 platelets, 1 cryo-02/28 Past 24 hours received 3 units PRBCs Serial hemoglobins every 6 hours Recheck coags Ultrasound 01/23/17 - Bilateral lower extremity with occlusive posterior tibial vein DVTs. Heparin was initially started for DVT but was placed on hold due to LP with suspected traumatic tap. Currently holding full anticoagulation with enoxaparin 100 mg IV twice a day due to anemia as of 02/26 IVC filter was placed 01/25/17. Ultrasound LUE 02/10 occlusive thrombus mid cephalic vein, basilic vein.s. Transfuse 3 units PRBCs 02/27 Transfuse 2 units PRBCs 03/01. transfused 1 unit PRBCs on 03/14 ENDO: Diabetes mellitus Hypoglycemia History of prior adrenal insufficiency with shock Gout EGD colonoscopy completed 02/22. gastritis and esophagitis, colon polyps Started Hydrocortisone 100 mg every 8 hours 02/21/17 (Recent high dose steroids use now hypotensive, hypoglycemic), steroids had been tapered off. Resumed stress dose steroids on 03/16 as patient back on Levophed for pressor support after intubation. Accu-Cheks to maintain euglycemia Novulin R every 4 hours. Increase Levemir from 30 units twice a day to 25 units twice a day for hyperglycemia which is probably worse since starting stress dose steroids. MSK: Right distal ulna fracture. Dr. Nathan with orthopedics has evaluated and recommended nonoperative management. Right wrist splint in place. PROPH: Lansoprazole 30 mg twice a day twice a day for stress ulcer prophylaxis. Has IVC filter. Therapeutic enoxaparin currently on hold for retroperitoneal hematoma ACCESS: right IJ CVL placed 03/03- to be discontinued 03/20. A left IJ hemodialysis catheter placed 03/01. Left femoral A line placed 03/14 - discontinued 03/19 Overall impression: Patient remains critically ill with worsening respiratory failure requiring reintubation; hypotension. Tracheostomy placed for comfort. Palliative care to assist with deciding goals of therapy. Prognosis poor. Problem Qualifiers (1) Aspiration pneumonia: (2) DVT (deep venous thrombosis): Qualified Codes: I82.443 - Acute embolism and thrombosis of tibial vein, bilateral (3) Acute renal failure: Qualified Codes: N17.9 - Acute kidney failure, unspecified (4) Diabetes mellitus: (5) Gout: Devin Puente MD Mar 20, 2017 10:17
--- NOTE | 2017-03-20 10:24 | HHI.IDPN ---
Subjective Subjective Remarks Patient is a 62-year-old male, admitted to the hospital for evaluation of pain in his right wrist. He gave a history of falling about a week ago and apparently had immediate pain in the right wrist. He did not seek any medical attention initially because reportedly he was very busy. He eventually presented, and he was found to have a distal ulnar fracture on plain films. He also had some redness and swelling. Orthopedics saw the patient, and was being treated conservatively with the splint. During this hospitalization also he started complaining of generalized weakness but more so in his lower extremity than his upper extremity. He had swelling in both lower extremity which revealed evidence of DVT in the posterior tibial veins. Neurology had seen the patient and he underwent lumbar puncture which apparently was traumatic. Patient was therefore not given anticoagulation because of the traumatic LP, and he underwent placement of an IVC filter on January 25. Patient had another lumbar puncture on February 01. He was felt to have transverse myelitis, and he was given high-dose IV Solu-Medrol from January 27 to February 02. There was apparently some improvement in his weakness. The imaging studies done for his weakness showed some spinal stenosis, and neurosurgery was consult that and recommended that there was no surgical intervention to be done. Patient has been stabilizing, but last night apparently deteriorated, and he ended up getting intubated, and had significant hypotension requiring pressors. There was also an ultrasound done of his left upper extremity which showed DVT, and there was evidence of superior 2 thrombophlebitis. Vascular surgery was consult to it and he had IND on his left upper extremity. Patient has had some fevers since yesterday. 2 blood cultures were done yesterday and they're now reported as growing gram-positive cocci in [place] in clusters. He is currently sedated and intubated. He is on Levophed and vasopressin. A central line was placed as well as a femoral a line. He apparently had an IV in his left upper extremity and that was removed yesterday. Patient also has history of chronic kidney disease, and nephrology evaluated the patient. He was just being monitored for his renal insufficiency. Infectious disease consultation has been requested to evaluate the patient. Notes reviewed D/W RN Temps better BP good, not on pressors On the vent Awake and following some commands Having HD this morning Has good UO Creatinine improving S/P trach S/P PEG Sputum with Pseudomonas Reintubated 03/12 Antibiotics I attest that I obtained, updated or reviewed the home and current medications. Fortaz IV Vanco IV intermittent dosing Current Medications Medications (Trade) Dose Ordered Sig/Rosalia Route Start Time Stop Time Status Last Admin (NS Flush) 2 ml UNSCH PRN IV FLUSH 01/23/17 00:30 02/01/17 05:07 (NS Flush) 2 ml BID IV FLUSH 01/23/17 09:00 03/20/17 08:06 (Zofran Inj) 4 mg Q6H PRN IVP 01/23/17 00:30 02/26/17 17:23 (Narcan Inj) 0.4 mg UNSCH PRN IV 01/23/17 00:30 (Edna-Colace) 1 tab BID PO 01/23/17 09:00 Future Hold 02/24/17 20:31 (Dulcolax Supp) 10 mg DAILY PRN RECTAL 01/23/17 00:30 (Lipitor) 10 mg HS PO 01/24/17 21:00 Future hold 03/19/17 20:33 (Glucagon Inj) 1 mg UNSCH PRN OTHER 02/11/17 05:45 02/18/17 18:53 (Flomax) 0.4 mg Q12HR PO 02/17/17 15:00 Future Hold 02/26/17 08:49 (Lovenox Inj) 100 mg Q12H SQ 02/18/17 12:00 Future Hold 02/26/17 16:20 (Lactinex) 1 tab TID PO 02/19/17 13:00 03/20/17 08:04 (Apresoline Inj) 10 mg Q30M PRN IV PUSH 02/20/17 11:45 03/11/17 12:37 (D50w (Vial) Inj) 25 ml UNSCH PRN IV PUSH 02/20/17 12:45 Sodium Chloride 1,000 ml @ 20 mls/hr Q24H IV 02/22/17 13:00 03/19/17 11:48 (Questran Light Pkt) 4 gm Q12HR PO 02/25/17 21:00 Future Hold 02/27/17 10:32 (Aldactone) 25 mg DAILY PO 02/27/17 09:00 Future Hold (Reglan Inj) 5 mg Q8HR IV PUSH 02/26/17 22:00 03/20/17 05:16 (Peridex 0.12% Liq) 15 ml BID@08,20 MT 02/28/17 08:00 03/20/17 08:06 (Albuterol Neb) 2.5 mg Q2HR NEB PRN NEB 02/28/17 07:45 03/16/17 20:41 (NovoLIN R SUPPLEMENTAL SCALE) 1 Q4HR SQ 02/28/17 08:00 03/20/17 08:06 Sodium Chloride 1,000 ml @ 0 mls/hr Q0M PRN OTHER 03/01/17 11:19 03/17/17 08:43 Sodium Chloride 1,000 ml @ 200 mls/hr Q5H PRN IV 03/01/17 11:19 Sodium Chloride 1,000 ml @ 0 mls/hr Q0M PRN OTHER 03/01/17 11:19 (Mannitol Inj) 12.5 gm UNSCH PRN IV 03/01/17 11:30 03/08/17 17:27 Albumin Human 100 ml @ 60 mls/hr UNSCH PRN IV 03/01/17 11:30 03/15/17 09:05 (NS Flush) 5 ml UNSCH PRN IV FLUSH 03/01/17 11:30 (Heparin Inj) UNSCH PRN .XX 03/01/17 11:30 03/17/17 08:42 (Gentamicin (Dialysis) Inj) 20 mg UNSCH PRN OTHER 03/01/17 11:30 03/17/17 08:44 (Tylenol) 650 mg UNSCH PRN PO 03/01/17 11:30 (Nitrostat Sl) 0.4 mg UNSCH PRN SL 03/01/17 11:30 (Gelfoam 12 Mm/7 Mm Top) 1 foam UNSCH PRN TOP 03/01/17 11:30 (NS Flush) UNSCH PRN IV FLUSH 03/01/17 13:00 (Heparin Inj) UNSCH PRN IV FLUSH 03/01/17 13:00 (NS Flush) DAILY IV FLUSH 03/04/17 09:00 03/20/17 08:05 (NS Flush) UNSCH PRN IV FLUSH 03/03/17 18:45 (Roxicodone Intensol Liq) 10 mg Q4H PO 03/05/17 14:00 03/20/17 08:05 (Prevacid Odt) 30 mg BID NG 03/07/17 21:00 03/20/17 08:04 (Tylenol 650 Mg/ 20 ml Liq) 650 mg Q6H PRN PO 03/09/17 10:15 03/14/17 05:24 (Lasix Inj) 40 mg BID@09,18 IV PUSH 03/10/17 18:00 03/20/17 08:04 (Trandate Inj) 20 mg Q4H PRN IV 03/12/17 04:30 03/17/17 12:25 (Tenormin) 25 mg Q12HR PO 03/12/17 10:00 03/20/17 08:04 Phenylephrine HCl 160 mg/Dextrose 500 ml @ 7.5 mls/hr TITRATE PRN IV 03/12/17 10:45 (Brethine Inj) 1 mg UNSCH PRN SQ 03/12/17 10:45 Midazolam HCl 100 ml @ 2 mls/hr TITRATE PRN IV 03/13/17 01:00 03/14/17 09:21 Fentanyl Citrate 250 ml @ 5 mls/hr TITRATE PRN IV 03/13/17 01:00 03/16/17 07:41 Norepinephrine Bitartrate 16 mg/ Sodium Chloride 250 ml @ 1.87 mls/hr TITRATE PRN IV 03/13/17 10:45 03/16/17 07:45 (SoluCORTEF INJ) 50 mg Q6HR IV PUSH 03/14/17 18:00 03/20/17 05:16 (Epogen Inj) 10,000 units UNSCH PRN IV PUSH 03/17/17 11:30 (Levemir Inj) 25 units BID SQ 03/19/17 09:00 03/20/17 08:05 Ceftazidime 2000 mg/Sodium Chloride 100 ml @ 200 mls/hr Q12H IV 03/19/17 13:00 03/20/17 01:16 Lines KATHLEEN haro - 03/12 Past Medical History Reviewed Allergies: Coded Allergies: levofloxacin (Verified Allergy, Severe, 01/22/17) Objective . Vital Signs Date Time Temp Pulse Resp B/P (MAP) Pulse Ox O2 Delivery O2 Flow Rate FiO2 03/20/17 10:00 85 03/20/17 09:32 95 40 10/31/17 08:00 87 03/20/17 08:00 99.1 87 20 158/95 (116) 99 03/20/17 07:31 98 40 03/20/17 06:58 97 40 03/20/17 06:17 20 03/20/17 06:00 78 03/20/17 04:09 99 40 03/20/17 04:00 99.2 74 16 157/81 (106) 99 03/20/17 04:00 40 03/20/17 04:00 74 03/20/17 02:00 76 03/20/17 00:22 100 40 03/20/17 00:00 40 03/20/17 00:00 86 03/20/17 00:00 99.3 86 18 153/84 (107) 99 03/19/17 22:00 82 03/19/17 20:00 40 03/19/17 20:00 99.2 86 18 141/81 (101) 97 Arterial Line 03/19/17 20:00 86 03/19/17 19:58 98 40 03/19/17 18:42 98 40 03/19/17 18:00 92 03/19/17 16:00 40 03/19/17 16:00 100.0 92 19 148/87 (107) 97 03/19/17 16:00 92 03/19/17 15:24 97 40 03/19/17 14:00 91 03/19/17 12:00 40 03/19/17 12:00 95 03/19/17 12:00 100.0 94 19 143/83 (103) 97 03/19/17 10:24 40 03/19/17 10:24 97 40 03/20/17 03/20/17 03/21/17 15:00 23:00 07:00 Intake Total 100 ml Balance 100 ml IV Total 100 ml . Laboratory Tests Test 03/19/17 03:00 White Blood Count 13.3 TH/MM3 Red Blood Count 3.03 MIL/MM3 Hemoglobin 8.9 GM/DL Hematocrit 26.6 % Mean Corpuscular Volume 87.6 FL Mean Corpuscular Hemoglobin 29.4 PG Mean Corpuscular Hemoglobin Concent 33.5 % Red Cell Distribution Width 15.5 % Platelet Count 243 TH/MM3 Mean Platelet Volume 9.2 FL CBC Comment AUTO DIFF Differential Total Cells Counted 100 Neutrophils % (Manual) 76 % Band Neutrophils % 18 % Lymphocytes % 3 % Monocytes % 1 % Neutrophils # (Manual) 12.8 TH/MM3 Metamyelocytes 2 % Differential Comment FINAL DIFF MANUAL Toxic Granulation 1+ Platelet Estimate NORMAL Platelet Morphology Comment NORMAL Laboratory Tests Test 03/19/17 03:00 03/20/17 02:59 Blood Urea Nitrogen 91 MG/DL 101 MG/DL Creatinine 2.33 MG/DL 2.24 MG/DL Random Glucose 322 MG/DL 260 MG/DL Total Protein 5.5 GM/DL Albumin 2.0 GM/DL 1.8 GM/DL Calcium Level 7.9 MG/DL 7.6 MG/DL Alkaline Phosphatase 177 U/L Aspartate Amino Transf (AST/SGOT) 59 U/L Alanine Aminotransferase (ALT/SGPT) 22 U/L Total Bilirubin 0.6 MG/DL Sodium Level 145 MEQ/L 147 MEQ/L Potassium Level 3.0 MEQ/L 2.6 MEQ/L Chloride Level 110 MEQ/L 111 MEQ/L Carbon Dioxide Level 25.7 MEQ/L 24.4 MEQ/L Anion Gap 9 MEQ/L 12 MEQ/L Estimat Glomerular Filtration Rate 29 ML/MIN 30 ML/MIN Phosphorus Level 2.2 MG/DL Imaging Chest X-Ray 03/14/17 0000 Signed Impressions: Service Date/Time: Tuesday, March 14, 2017 13:41 - CONCLUSION: 1. Tracheostomy in good position. 2. Left lower lung infiltrates and left pleural effusion. Candido Patton MD Aortography 02/28/17 0000 Signed Impressions: Service Date/Time: Tuesday, February 28, 2017 08:01 - CONCLUSION: 1. Active hemorrhage from distal right lateral sacral and iliolumbar branches successfully coil and Gelfoam embolized, as above. Juan Bhakta MD Abdomen/Pelvis CT 02/28/17 0000 Signed Impressions: Service Date/Time: Tuesday, February 28, 2017 06:51 - CONCLUSION: 1. The right retroperitoneal hematoma has increased in size, as above. There are 2 serpiginous arterially enhancing structures visualized, one in the right psoas muscle and another extending into the hematoma at the right iliac fossa. These could represent sites of continued active bleeding. 2. Stable moderate size left and small right pleural effusion with associated compressive atelectasis. 3. Stable small volume of free fluid in the abdomen and pelvis. There is also anasarca. The findings concerning the retroperitoneal hematoma were discussed with Dr. Aguiar via telephone at approximately 7: 10 AM on 02/28/2017. Angelo Allen MD Chest CT 02/27/17 0000 Signed Impressions: Service Date/Time: Monday, February 27, 2017 18:12 - CONCLUSION: 1. Bilateral pleural effusions with bibasilar atelectasis, left greater than right. Tom Sanchez MD Abdomen X-Ray 02/26/17 0000 Signed Impressions: Service Date/Time: Sunday, February 26, 2017 14:52 - CONCLUSION: 1. Nonobstructive bowel gas pattern. Juan Bhakta MD Upper Extremity Ultrasound 02/10/17 0000 Signed Impressions: Service Date/Time: Friday, February 10, 2017 18:46 - CONCLUSION: Occlusive thrombus in the cephalic and basilic veins. Benjamin Person MD Lung Scan- Nuclear Medicine 02/10/17 0000 Signed Impressions: Service Date/Time: Friday, February 10, 2017 22:17 - CONCLUSION: Low probability pulmonary embolism. Candido Patton MD Head CT 02/10/17 0000 Signed Impressions: Service Date/Time: Friday, February 10, 2017 23:51 - CONCLUSION: Negative noncontrast CT brain. Candido Patton MD Wrist X-Ray 02/06/17 0000 Signed Impressions: Service Date/Time: Monday, February 06, 2017 12:50 - CONCLUSION: Minimally displaced distal radius and ulnar fractures. Armando Dodd MD Lumbar Puncture Fluoroscopy 02/01/17 0000 Signed Impressions: Service Date/Time: January 09:35 - CONCLUSION: Uncomplicated fluoroscopically guided lumbar puncture. CSF was clear. Nabeel Peralta MD Head Magnetic Resonance Angiography 01/27/17 0000 Signed Impressions: Service Date/Time: Friday, January 27, 2017 10:33 - CONCLUSION: No intracranial vascular abnormality is identified. There is no aneurysm visualized. Angelo Allen MD IVC Filter Placement X-Ray 01/25/17 0000 Signed Impressions: Service Date/Time: January 10:29 - CONCLUSION: Uncomplicated inferior vena cava filter placement as above. Yung Fowler MD Thoracic Spine MRI 01/24/17 Signed Impressions: Service Date/Time: Tuesday, January 24, 2017 22:29 - CONCLUSION: 1. Mild degenerative spondylosis most prominently at T11-L1 with slight effacement of the anterior thecal sac and left lateral recess. No significant neural foraminal stenosis. 2. No acute fracture. Juan Bhakta MD Renal Ultrasound 01/23/17 Signed Impressions: Service Date/Time: Monday, January 23, 2017 08:53 - CONCLUSION: 1. Evidence of chronic parenchymal disease of both kidneys. No obstructive uropathy or other acute abnormality demonstrated. 2. Trace ascites, nonspecific. Angeol Garrido MD Lumbar Spine MRI 01/23/17 Signed Impressions: Service Date/Time: Monday, January 23, 2017 17:01 - CONCLUSION: 1. At L4-5 is a broad-based disc protrusion with severe central canal and lateral recess stenosis and flattening of the exiting right L4 nerve root. 2. L5-S1 there is a disc protrusion and moderate stenosis with flattening of the exiting L5 nerve roots bilaterally. 3. At L3-4 there is a moderate to severe central stenosis and lateral recess stenosis with mild foraminal stenosis. 4. No acute fracture or spondylolisthesis. Trace Holloway MD Lower Extremity Ultrasound 01/23/17 Signed Impressions: Service Date/Time: Monday, January 23, 2017 09:53 - CONCLUSION: Bilateral focal lower extremity DVT involving the posterior tibial veins. Angelo Garrido MD Cervical Spine MRI 01/23/17 Signed Impressions: Service Date/Time: Monday, January 23, 2017 17:01 - CONCLUSION: 1. Multilevel cervical spine degenerative changes as above. 2. Mild degrees of spinal stenosis at C3/C4-C6/C7. No cord compression or cord signal abnormality. 3. Age indeterminate left paracentral/foraminal disc protrusion at C6/C7. 4. Multilevel foraminal stenosis, most severe on the left at C6/C7. Please see individual levels above. 5. No fracture or subluxation of the cervical spine. Angelo Garrido MD Brain MRI 9/5/17 0000 Signed Impressions: Service Date/Time: Monday, January 23, 2017 17:01 - CONCLUSION: 1. No acute stroke or other acute intracranial abnormality demonstrated. 2. Moderate severity chronic white matter changes, nonspecific but most likely related to chronic small vessel disease. 3. Few scattered tiny lacunar infarcts of the brainstem. 4. Given the findings are not entirely specific, clinical evaluation for possible multiple sclerosis recommended. Angelo Garrido MD Knee X-Ray [id number]/22/[id number] Signed Impressions: Service Date/Time: Sunday, January 22, 2017 21:17 - CONCLUSION: 1. Evidence of moderate to large joint effusion. 2. No acute fracture or malalignment. 3. Mild 3 compartment osteoarthritic change. Benjamin Person MD Hip and Pelvis X-Ray [id number]/22/[id number] Signed Impressions: Service Date/Time: Sunday, January 22, 2017 21:10 - CONCLUSION: 1. Mild to moderate degenerative change of both hips with no acute fracture or malalignment. There is flattening and remodeling of the right humeral head. Benjamin Person MD Physical Exam GENERAL: Awake and following commands, NAD, on the vent, having HD SKIN: Cool and dry. No generalized rash. Still edematous EYES: [place] conjunctiva. No petechia or hemorrhage. EARS, NOSE AND THROAT: Nose without bleeding or purulent nasal discharge. Dry oral mucosa NECK: Trachea midline. Supple and no meningeal signs. Trach site ok CARDIOVASCULAR: Regular rate and rhythm. Soft heart sounds. No murmurs RESPIRATORY: Coarse BS bilaterally, decreased at bases. ABDOMEN: Soft, mildly distended, PEG site ok. Mild tenderness, no guarding EXTREMITIES: No clubbing, cyanosis. Edema feet better; edema hands better : very swollen scrotum, has a lot of sediment in his cath tubing NEUROLOGICAL: awake and following commands PSYCHIATRIC: Calm and cooperative LINE: Lines with no evidence of infection Assessment & Plan Remarks IMPRESSION Fevers - better - had Kleb and Sten mal in sputum, S/P Rx - now with Pseudomonas - PSAE R to Imipenem HCAP, Pseudomonas now - previously Kleb and Sten mal, S/P Rx with Bactrim Shock, resolved Large R retroperitoneal bleed, S/P multiple transfusions and S/P coiling of bleeders Elevated amylase and lipase, better Anemia, due to bleed, retroperitoneal MSSA sepsis, due to suppurative thrombophlebitis LUE, S/P I and D and excision of portion of cephalic vein - needs Rx until Mar 25 Respiratory failure, has had several intubations - reintubated again 02/28, extubated 03/11 - reintubated again - S/P trach 03/14 Recent Rx 7 days high dose solumedrol for transverse myelitis Wu LE DVT has IVC filter placed 01/25 - ?hypercoagulable state Chronic kidney disease, worsening creatinine - shock and compression of ureter by hematoma Known DM, HTN Gouty tophi both hands and feet Diarrhea, C diff negative UTI, GNR - repeat UA better, but a lot of sediment in the urine Thrombocytopenia, no evidence of DIC, ?meds, ?infection, ?due to bleed - improving RECOMMENDATION Continue Fortaz IV Check vanco level in AM Follow temps Monitor progress Palliative med following D/W Irene Vogel MD Mar 20, 2017 10:24
[2017-03-20] MEDS: SODIUM CHLOR 0.9% 1000 ML INJ 1,000 ML IV SCH (12:39)
--- NOTE | 2017-03-20 14:49 | HHI.HCPN ---
Reason for visit a. To assist with evaluation and management of symptoms including: shortness of breath, pain, debility b. To assist medical decision maker(s) with: better understanding of current medical conditions; weighing benefits/burdens of medical treatment options; making medical treatment decisions. Subjective/Interval History Mr Kerr is a 62 years old male with a past medical history of hypertension, asthma, diabetes, hyperlipidemia, chronic kidney disease and gout. Patient presented to the ED on 01/22/17 complaining of bilateral knee and right arm pain after a mechanical fall 4 or 5 days prior to coming to the ER. Patient has been experiencing progressive weakness of bilateral lower extremities as well as bilateral upper extremities prior to ER visit. Patient seen in ICU, remains on ventilatory support . CPAP trials earlier on this morning, per bedside nurse patient only lasted approximately 1 hour. Patient started getting apneic after hemodialysis was started and was placed back on vent settings PRVC/AC 16/500/5/1.00s/40%. Per hemodialysis the plan is to [id number] mL today. Patient is awake, tracks and following simple commands with right upper extremity , no response noted with other extremities. Reports from bedside nurse that patient does intermittently follows commands with bilateral upper extremities. Patient looks like he is trying to mouth some words. Tube feeds Nepro infusing at 55 mL's now Laboratory workup 03/20/17 revealed sodium 147, potassium 2.6, BUN/creatinine 101/2.24, random glucose 260 , calcium 7.6, phosphorus 2.2, albumin 1.8. Low grade temp- Tmax today 99.7 degrees F. SBP 130s to 150s. Nephrology and ID following. Plan for a Perm Cath placement by Interventional Radiology. [facility]. Telephone conversation with patient`s sister. Updated on medical status. Case discussed with bedside ROHINI Curry and Case Management Yoly Miramontes. . Family/friend interactions Telephone conversation with patient`s sister Deb. . Advance Directives Living Will: Never completed Health Care Surrogate: Never completed Durable Power of It Senior Software Engineer Java: Never completed Advance Directive Specifics Documented care wishes: No known documented care wishes have been completed. . Objective Vital Signs Date Time Temp Pulse Resp B/P (MAP) Pulse Ox O2 Delivery O2 Flow Rate FiO2 03/20/17 12:00 70 03/20/17 12:00 99.7 82 27 138/85 (102) 96 03/20/17 12:00 40 03/20/17 11:13 98 40 03/20/17 10:00 85 03/20/17 09:32 95 40 03/20/17 08:00 87 03/20/17 08:00 99.1 87 20 158/95 (116) 99 03/20/17 07:31 98 40 03/20/17 06:58 97 40 03/20/17 06:17 20 03/20/17 06:00 78 03/20/17 04:09 99 40 03/20/17 04:00 99.2 74 16 157/81 (106) 99 03/20/17 04:00 40 03/20/17 04:00 74 03/20/17 02:00 76 03/20/17 00:22 100 40 03/20/17 00:00 40 03/20/17 00:00 86 03/20/17 00:00 99.3 86 18 153/84 (107) 99 03/19/17 22:00 82 03/19/17 20:00 40 03/19/17 20:00 99.2 86 18 141/81 (101) 97 Arterial Line 03/19/17 20:00 86 03/19/17 19:58 98 40 03/19/17 18:42 98 40 03/19/17 18:00 92 03/19/17 16:00 40 03/19/17 16:00 100.0 92 19 148/87 (107) 97 03/19/17 16:00 92 03/19/17 15:24 97 40 Intake & Output 03/20/17 03/20/17 07:00 19:00 Intake Total 662 ml 200 ml Output Total 1350 ml 1000 ml Balance -688 ml -800 ml IV Total 200 ml Tube Feeding 572 ml Tube Irrigant 90 ml Output Urine Total 1350 ml Hemodialysis 1000 ml # Bowel Movements 1 Physical Exam CONSTITUTIONAL/GENERAL: This is an adequately nourished patient, trached on mechanical ventilation with no sedation. TUBES/LINES/DRAINS: LIJ Vas Cath, PEG tube, Tracheostomy, PIVs, FC SKIN: No jaundice. Ecchymoses on upper extremities. No wounds seen anteriorly. Afebrile. Not diaphoretic. HEAD: Atraumatic. Normocephalic. EYES: Pupils equal and round, slight reaction.No scleral icterus. No injection or drainage. Fundi not examined. ENT: Trached with no sedation. Nose without bleeding or purulent drainage. Moist oral mucosa. NECK: Trachea midline. Supple, nontender. CARDIOVASCULAR: Regular rate and rhythm without murmurs, gallops, or rubs. No JVD. RESPIRATORY/CHEST: Symmetric, unlabored respirations. rhonchi to auscultation. Breath sounds equal bilaterally. GASTROINTESTINAL: Abdomen soft, non-tender, nondistended. No guarding. Bowel sounds present. GENITOURINARY: Without palpable bladder distension. Sloan catheter in with clear urine. Scrotal edema. MUSCULOSKELETAL: Gout tophi to fingers, knees, elbows and both ankles. Trace edema to extremities. NEUROLOGICAL: Tracheostomy on mechanical ventilation. Patient is tracking with his eyes,followed commands with RUE only, trying to mouth some words. PSYCHIATRIC: No obvious anxiety/depression. no apparent hallucinations or other psychotic thought process. . Diagnostic Tests Laboratory Laboratory Tests Test 03/18/17 06:30 03/19/17 03:00 03/20/17 02:59 White Blood Count 9.8 TH/MM3 (4.0-11.0) 13.3 TH/MM3 (4.0-11.0) Red Blood Count 3.02 MIL/MM3 (4.50-5.90) 3.03 MIL/MM3 (4.50-5.90) Hemoglobin 8.9 GM/DL (13.0-17.0) 8.9 GM/DL (13.0-17.0) Hematocrit 26.3 % (39.0-51.0) 26.6 % (39.0-51.0) Mean Corpuscular Volume 87.1 FL (80.0-100.0) 87.6 FL (80.0-100.0) Mean Corpuscular Hemoglobin 29.6 PG (27.0-34.0) 29.4 PG (27.0-34.0) Mean Corpuscular Hemoglobin Concent 34.0 % (32.0-36.0) 33.5 % (32.0-36.0) Red Cell Distribution Width 15.8 % (11.6-17.2) 15.5 % (11.6-17.2) Platelet Count 238 TH/MM3 (150-450) 243 TH/MM3 (150-450) Mean Platelet Volume 8.7 FL (7.0-11.0) 9.2 FL (7.0-11.0) Neutrophils (%) (Auto) 88.2 % (16.0-70.0) Lymphocytes (%) (Auto) 4.6 % (9.0-44.0) Monocytes (%) (Auto) 6.7 % (0.0-8.0) Eosinophils (%) (Auto) 0.2 % (0.0-4.0) Basophils (%) (Auto) 0.3 % (0.0-2.0) Neutrophils # (Auto) 8.6 TH/MM3 (1.8-7.7) Lymphocytes # (Auto) 0.4 TH/MM3 (1.0-4.8) Monocytes # (Auto) 0.7 TH/MM3 (0-0.9) Eosinophils # (Auto) 0.0 TH/MM3 (0-0.4) Basophils # (Auto) 0.0 TH/MM3 (0-0.2) CBC Comment DIFF FINAL AUTO DIFF Differential Comment FINAL DIFF MANUAL Blood Urea Nitrogen 76 MG/DL (7-18) 91 MG/DL (7-18) 101 MG/DL (7-18) Creatinine 2.30 MG/DL (0.60-1.30) 2.33 MG/DL (0.60-1.30) 2.24 MG/DL (0.60-1.30) Random Glucose 320 MG/DL (74-106) 322 MG/DL (74-106) 260 MG/DL (74-106) Calcium Level 8.6 MG/DL (8.5-10.1) 7.9 MG/DL (8.5-10.1) 7.6 MG/DL (8.5-10.1) Sodium Level 145 MEQ/L (136-145) 145 MEQ/L (136-145) 147 MEQ/L (136-145) Potassium Level 3.1 MEQ/L (3.5-5.1) 3.0 MEQ/L (3.5-5.1) 2.6 MEQ/L (3.5-5.1) Chloride Level 108 MEQ/L (98-107) 110 MEQ/L (98-107) 111 MEQ/L (98-107) Carbon Dioxide Level 25.1 MEQ/L (21.0-32.0) 25.7 MEQ/L (21.0-32.0) 24.4 MEQ/L (21.0-32.0) Anion Gap 12 MEQ/L (5-15) 9 MEQ/L (5-15) 12 MEQ/L (5-15) Estimat Glomerular Filtration Rate 29 ML/MIN (>89) 29 ML/MIN (>89) 30 ML/MIN (>89) Differential Total Cells Counted 100 Neutrophils % (Manual) 76 % (16-70) Band Neutrophils % 18 % (0-6) Lymphocytes % 3 % (9-44) Monocytes % 1 % (0-8) Neutrophils # (Manual) 12.8 TH/MM3 (1.8-7.7) Metamyelocytes 2 % (0-1) Toxic Granulation 1+ (NORMAL) Platelet Estimate NORMAL (NORMAL) Platelet Morphology Comment NORMAL (NORMAL) Total Protein 5.5 GM/DL (6.4-8.2) Albumin 2.0 GM/DL (3.4-5.0) 1.8 GM/DL (3.4-5.0) Alkaline Phosphatase 177 U/L (45-117) Aspartate Amino Transf (AST/SGOT) 59 U/L (15-37) Alanine Aminotransferase (ALT/SGPT) 22 U/L (12-78) Total Bilirubin 0.6 MG/DL (0.2-1.0) Phosphorus Level 2.2 MG/DL (2.5-4.9) Result Diagram: 03/19/17 0300 03/20/17 0259 Procedures 01/25/2017- Retrievable IVC Filter placement 01/26/17-lumbar puncture with fluoroscopy-by interventional radiology 02/01/17- lumbar puncture fluoroscopy by interventional radiology 02/10/17- Endotracheal Intubation 02/10/17-left IJ central venous line placed 02/10/17-left femoral arterial line placed 02/11/17-Diagnostic and therapeutic bronchoscopy with bronchoalveolar lavage 02/11/17-Left upper extremity incision and debridement with excision of septic cephalic vein 02/13/17- Extubated 02/20/17- endotracheal intubation 02/20/17- Left subclavian central line placement 02/20/17-Right radial A-line placement 02/22/17-EGD/colonoscopy 02/28/17-right radial a line 02/28/17- Endotracheal intubation 02/28/17- right sided introducer catheter placement 02/28/17- Right IJ central line placement 02/28/17-Right chest tube placement 02/28/17- Embolization of inferior and superior sacral branches of right internal iliac artery 03/01/17- Hemodialysis access catheter 03/03/17-Right IJ central line placement 03/11/17-Extubated 03/13/17- Endotracheal intubation 03/14/17-Tracheostomy placement 03/15/17-PEG tube placement . Assessment and Plan Disease Oriented Problem List: (1) Acute respiratory failure (2) Septic shock (3) Aspiration pneumonia (4) Acute renal failure (5) CKD (chronic kidney disease) stage 3, GFR 30-59 ml/min (6) Cardiomyopathy (7) DVT of lower extremity, bilateral (8) Thrombophlebitis arm (9) Diabetes mellitus (10) Gout (11) HTN (hypertension) (12) Hyperlipidemia Symptom Scale: (1) Shortness of breath 0-10 Scale: Unable to quantify Comment: Currently trached and on mechanical ventilation . (2) Debility 0-10 Scale: Unable to quantify Comment: Progressive. . (3) Pain 0-10 Scale: Unable to quantify Comment: History of falls, gout, arthritis, and currently bedbound. . Pertinent Non-Medical Issues Psychosocial:Patient was born and raised in [place], [place]. Patient was once for 20 years, now and has 2 adult sons. 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 He recently resigned due to failing health. Spiritual: No uatsdin affiliation Legal: Per [place] statutes, in the absence of written advanced directives healthcare proxy decision making falls to the patient's 2 adult children. Patient's son (Davie) lives locally and wishes to participate in the role of the healthcare proxy decision maker. Palliative care has attempted to contact the patient's son, Arnel, who lives in [place] 2; awaiting return phone call. Ethical issues impacting care: No known ethical issues impacting care at this time. . Important Contacts Son-Davie Kerr - Son-Arnel Kerr- -cell -home Sister-Deb Curry . Prognosis Mr Kerr is a 62 years old male with a past medical history of hypertension, asthma, diabetes, hyperlipidemia, chronic kidney disease and gout. Patient presented to the ED on 01/22/17 complaining of bilateral knee and right arm pain after a mechanical fall 4 or 5 days prior to coming to the ER. Clinical course complicated with increased weakness leading to numerous diagnostic work ups for possible transverse myelitis, DVTs, retroperitoneal hematoma, aspiration pneumonia, intubation x 4 times, septic and hemorrhagic shock requiring support with pressors and multiple pRBC, FFP transfusions as well as platelets and cryo , renal failure requiring hemodialysis and sacral wound Given ongoing comorbidities, and prolonged hospitalization, patient remains at risk for further complications, deterioration and decline leading to . Code Status: Full Code Plan PLAN: Legal decision maker: Patient is currently intubated, sedated on a mechanical ventilation and is not able to make any medical decisions for himself at this time. It is unclear if patient will regain capacity to make medical decisions at this time. Patient has 2 adult sons Davie Kerr and Arnel Kerr. According to [place] Statute, his two aforementioned sons will serve as his health care proxys. Patient`s son Davie is acting in the role of HCP decision maker independently at this time given that he is the one who is reasonably available for consultation. Goals: 03/19/17- Remain Aggressive. Discussed probable need for patient to be discharged to a facility that focuses on weaning him off the ventilator. CODE STATUS: Full Code SYMPTOMS: * Shortness of breath: Multifactorial. Patient has had aspiration pneumonia. Patient has been intubated 4 times this hospitalization. Patient has a tracheostomy. Ongoing CPAP trials. FIO2 40%. Patient on duonebs. Patient also on Hydrocortisone 50mg q 6 hours. [facility] to [facility]. * Pain: Patient presented initially complaining of pain to right wrist and bilateral knees after a mechanical fall. Patient has a history of gout, arthritis, multiple falls and is currently bedbound. Patient on Oxicodone q 4 hours ATC. Patient does not appear to be in pain. Patient also on Hydrocortisone. * Debility: Progressive. Patient has had decline in his health for the past 4 months, including progressively increased weakness and difficulty ambulating and prolonged hospitalization with multiple setbacks. Patient remains at high risk for further physical deconditioning and debility. PT consulted. Palliative care will continue to follow the patient during hospital course as condition evolves, to assist patient/decision-maker with understanding of their medical conditions, weighing benefits/burdens of treatment options, for clarification of goals of treatment. Additionally will assist with any symptoms of palliative concern. . Attestation To help prompt me to consider important information that might be impacting today's encounter and assessment, information from prior notes written by myself or my colleagues may have been "brought forward" into today's note. My signature on this note, however, is an attestation that I personally performed the exam, history, and/or decision-making noted today, and, unless otherwise indicated, the interactions with patient, family, and staff as well as the review of records all occurred today. I also attest that the listed assessment and stated plan reflect my best clinical judgment today based on the combination of historical information, prior notes, and today's exam/ interactions. When time spent is documented, it refers only to time spent today by the signer, or if indicated, combined time spent today by collaborating physician/nurse practitioner. . Aftab Cartwright Mar 20, 2017 14:49
[2017-03-20 17:21] LABS: POTASSIUM 2.9 MEQ/L (3.5-5.1)
[2017-03-20] MEDS ORDERED: POTASSIUM PHOSPHATE IV ONE (18:00)
[2017-03-20] MEDS ORDERED: SODIUM CHLOR 0.9% IV ONE (18:00)
[2017-03-20] MEDS: ATORVASTATIN 10 MG TAB PO SCH (20:26)
[2017-03-20] MEDS: hydrALAZINE HCL 20 MG/ML VIAL IV PUSH PRN (20:26)
[2017-03-21] VITALS (19 sets, daily range): BP systolic 130–158; BP diastolic 77–91; PULSE 64–80; RESP 17–22; TEMP 98.7–99.3; O2SAT 94–100
[2017-03-21] MEDS: HYDROCORTISONE SOD SUCCINATE 100 MG VIAL IV PUSH SCH ×4 (00:19→19:40)
[2017-03-21] MEDS: INSULIN NovoLIN REGULAR SUPPLEMENTAL SCALE SQ SCH ×6 (00:28→20:00)
[2017-03-21] MEDS: cefTAZidime INJ 2,000 MG in SODIUM CHLORIDE 0.9% INJ 100 ML IV SCH ×2 (00:29→13:00)
[2017-03-21] MEDS: oxyCODONE HCL ORAL CONC 5 MG/0.25 ML SYRINGE PO SCH ×6 (01:47→22:00)
[2017-03-21] MEDS: METOCLOPRAMIDE HCL 10 MG/2 ML VIAL IV PUSH SCH ×3 (05:19→22:06)
[2017-03-21 05:23] LABS: HEMATOCRIT 29.3 % (39.0-51.0); MEAN CELL VOLUME 87.5 FL (80.0-100.0); MEAN CORPUSCULAR HEMOGLOBIN 28.7 PG (27.0-34.0); MEAN CORPUSCULAR HGB CONC 32.8 % (32.0-36.0); PLATELET COUNT 340 TH/MM3 (150-450); RED BLOOD COUNT 3.35 MIL/MM3 (4.50-5.90); RED CELL DISTRIBUTION WIDTH 15.6 % (11.6-17.2); REVIEW FLAG FINAL
[2017-03-21 05:40] LABS: INTERNATIONAL NORMALIZED RATIO 1.1 RATIO; PROTHROMBIN TIME - PATIENT 12.1 SEC (9.8-11.6)
[2017-03-21 05:57] LABS: BICARBONATE 25.4 MEQ/L (21.0-32.0); POTASSIUM 3.1 MEQ/L (3.5-5.1)
[2017-03-21] MEDS: CHLORHEXIDINE 0.12% (ORAL KIT) 15 ML CUP MT SCH ×2 (08:00→19:41)
[2017-03-21] MEDS: SODIUM CHLORIDE 0.9% FLUSH 10 ML FLUSH IV FLUSH SCH ×3 (09:00→22:04)
[2017-03-21] MEDS: FUROSEMIDE 40 MG/4 ML VIAL IV PUSH SCH ×2 (09:00→19:40)
[2017-03-21] MEDS: ATENOLOL 25 MG TAB PO SCH ×2 (09:00→22:05)
[2017-03-21] MEDS: LACTOBACILLUS ACIDOPHILUS TAB PO SCH ×3 (09:00→19:41)
[2017-03-21] MEDS: INSULIN DETEMIR 100 UNITS/ML VIAL SQ SCH ×2 (09:00→22:07)
[2017-03-21] MEDS: LANSOPRAZOLE SOLUTAB 30 MG TAB NG SCH ×2 (09:00→22:04)
[2017-03-21] MEDS ORDERED: VANCOMYCIN HCL 1000 MG ON-CALL/NS 250 ML IV SCH ×2 (09:15)
[2017-03-21] MEDS: SODIUM CHLOR 0.9% 1000 ML INJ 1,000 ML IV SCH (13:00)
--- NOTE | 2017-03-21 14:03 | HHI.NPPN ---
Subjective History of Present Illness 61-year-old with history of urinary stone Additional Remarks Patient had trach on vent Review of Systems General Constitutional: Fatigue Objective Data Data Vital Signs Date Time Temp Pulse Resp B/P (MAP) Pulse Ox O2 Delivery O2 Flow Rate FiO2 03/21/17 10:59 100 40 03/21/17 08:14 99 40 03/21/17 06:00 78 03/21/17 04:41 97 40 03/21/17 04:00 74 03/21/17 04:00 98.7 74 17 137/81 (99) 97 03/21/17 04:00 40 03/21/17 02:47 16 03/21/17 02:00 80 03/21/17 00:27 98 40 03/21/17 00:00 40 03/21/17 00:00 80 03/21/17 00:00 99.1 80 19 155/91 (112) 98 03/20/17 22:00 78 03/20/17 20:03 98 40 03/20/17 20:00 82 03/20/17 20:00 40 03/20/17 20:00 99.1 82 23 174/89 (117) 98 03/20/17 18:00 71 03/20/17 16:07 99 T-piece 50 03/20/17 16:00 50 03/20/17 16:00 80 03/20/17 16:00 99.2 78 23 151/97 (115) 99 03/20/17 15:12 40 03/20/17 15:11 40 03/20/17 15:11 97 40 -: 03/21/17 0500 03/21/17 0500 Physical Exam General Appearance: Pale Eyes Eye Exam: Pupils Equal Throat Throat Exam: Oral Mucosa [place] & Moist Neck Neck Exam: Neck Supple Pulmonary Resp Exam: Rhonchi, Decreased Bases, Diminished Breath Sounds Cardiology CV Exam: Normal Sinus Rhythm Gastrointestinal/Abdomen GI Exam: Non-Tender, Distended Extremeties Extremities Exam: Pitting Edema, Dependent Edema Neurologic Neuro Exam: Awake Assessment/Plan Problem List: (1) Acute renal failure ICD Codes: N17.9 - Acute kidney failure, unspecified Status: Acute Plan: Patient developed Hypotension,sepsis staph aureus respiratory failure and increase WBC. Had aspiration pneumonia, developed sepsis with ARF again creatinine declined slightly post hydration he also had retroperitoneal bleed Elevated intra abdominal pressures - improved now. 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 He was tried on sodium modeling and hemodialysis combined with ultrafiltration hemodialysis proceedings noted UF1 L as BP drops (2) CKD (chronic kidney disease) stage 3, GFR 30-59 ml/min ICD Codes: N18.3 - Chronic kidney disease, stage 3 (moderate) Status: Chronic Plan: Ultrasound revealed chronic kidney disease there is no kidney stones (3) Diabetes ICD Codes: E11.9 - Type 2 diabetes mellitus without complications Plan: Continue to monitor (4) Distal end of ulna fracture, closed ICD Codes: S52.609A - Unspecified fracture of lower end of unspecified ulna, initial encounter for closed fracture Status: Acute Plan: Orthopedic is following Problem Qualifiers (1) Acute renal failure: Qualified Codes: N17.9 - Acute kidney failure, unspecified Laura Liao MD Mar 21, 2017 14:03
--- NOTE | 2017-03-21 15:57 | PD.WCN.NOT ---
Wound Consult Description: Follow up of sacral Stage IV pressure injury L heel unstageable pressure injury. Communicated with: ROHINI Fitzgerald and call placed to Doctor Angelo Recommendation: Continue to offload pressure from sacrum and right buttock with Q2H turns. Please cleanse wound to sacral area with normal saline or wound cleanser and pat dry, apply Hydrogel to eschar only cover with dry 4x4 gauze. Cover entire wound area with ABD pads, secured with tape. Please apply skin prep to periwound before applying tape. Apply Calazime barrier cream to scrotal and bilateral groin areas and leave open to air. Additional Information: Patient seen on [address] [place] [address] for follow up of Sacral wound at around 1535. Patient turned with maximum assist to R side with the assistance of group underwriter, [facility] and student life vice president, to reveal Sacral, and bilateral buttocks wound. Current treatment for wound is Calazime barrier cream and open to air. Wound cleansed with normal saline. Wound bed presents with ~70% black dry eschar , ~20% pink tissue and ~10% white tissue. Wound has minimal sero-sanguinous drainage that is without odor. Periwound has improved still noted with mild blanching erythema. Wound measures ~12cm x ~10cm x eschar. Wound margins are well defined. Wound has a round shape and covers the sacrum, coccyx, and bilateral buttocks. Applied hydrogel just over black eschar to soften, dry 4x4 gauze was then applied just over eschar. Covered entire wound with two ABD pads , secured with silk tape. Sprayed skin prep to periwound and before applying tape.Patient is laying on [place] airapy bed with Two staggered ultra sorb pads are under patient for incontinence management, with turn sheet for repositioning. Patient positioned off bottom to offload pressure from elbert prominences. Ashley Fuller [facility] Mar 21, 2017 15:57
--- NOTE | 2017-03-21 16:43 | HHI.HCPN ---
Reason for visit a. To assist with evaluation and management of symptoms including: shortness of breath, pain, debility b. To assist medical decision maker(s) with: better understanding of current medical conditions; weighing benefits/burdens of medical treatment options; making medical treatment decisions. Subjective/Interval History Mr Kerr is a 62 years old male with a past medical history of hypertension, asthma, diabetes, hyperlipidemia, chronic kidney disease and gout. Patient presented to the ED on 01/22/17 complaining of bilateral knee and right arm pain after a mechanical fall 4 or 5 days prior to coming to the ER. Patient has been experiencing progressive weakness of bilateral lower extremities as well as bilateral upper extremities prior to ER visit. Patient seen in ICU, filler shredder and bedside RN at bedside. Patient awake and alert, seems to be nodding and shaking head appropriately. Patient trying to mouth some words, unable to make oout what he is trying to say. Followed simple commands with all 4 extremities with decreased strength. Patient is now on T- Bruce 35% saturating at high 90s. SBP 130s-150s.Tube feeds Nepro at goal infusing at 55 mL's- tolerating per bedside RN. Laboratory workup revealed WBC 19.0, hemoglobin 9.6, hematocrit 29.3, platelet count 340, sodium 146, potassium 3.1, BUN/creatinine 80/1.66, calcium 7.8, phosphorous 3.8. Telephone conversation with patient`s sister. Updated on medical status. Case discussed with bedside RN Nabila Henley, and wound care nurse Ashley Fuller. . Family/friend interactions Patient`s sister Deb. . Advance Directives Living Will: Never completed Health Care Surrogate: Never completed Durable Power of Floor Worker Transfer Bay: Never completed Advance Directive Specifics Documented care wishes: No known documented care wishes have been completed. . Objective Vital Signs Date Time Temp Pulse Resp B/P (MAP) Pulse Ox O2 Delivery O2 Flow Rate FiO2 03/21/17 14:25 95 T-piece 6.00 35 03/21/17 10:59 100 40 03/21/17 08:14 99 40 03/21/17 06:00 78 03/21/17 04:41 97 40 03/21/17 04:00 74 03/21/17 04:00 98.7 74 17 137/81 (99) 97 03/21/17 04:00 40 03/21/17 02:47 16 03/21/17 02:00 80 03/21/17 00:27 98 40 03/21/17 00:00 40 03/21/17 00:00 80 03/21/17 00:00 99.1 80 19 155/91 (112) 98 03/20/17 22:00 78 03/20/17 20:03 98 40 03/20/17 20:00 82 03/20/17 20:00 40 03/20/17 20:00 99.1 82 23 174/89 (117) 98 03/20/17 18:00 71 Intake & Output 03/21/17 03/21/17 07:00 19:00 Intake Total 1030 ml Output Total 851 ml Balance 179 ml IV Total 350 ml Tube Feeding 580 ml Tube Irrigant 100 ml Output Urine Total 850 ml Stool Total 1 ml Physical Exam CONSTITUTIONAL/GENERAL: This is an adequately nourished patient, trached on mechanical ventilation with no sedation. TUBES/LINES/DRAINS: LIJ Vas Cath, PEG tube, Tracheostomy, PIVs, FC SKIN: No jaundice. Ecchymoses on upper extremities. Sacral pressure wound and L heel pressure injury. Afebrile. Not diaphoretic. HEAD: Atraumatic. Normocephalic. EYES: Pupils equal and round, slight reaction.No scleral icterus. No injection or drainage. Fundi not examined. ENT: Trached with no sedation. Nose without bleeding or purulent drainage. Moist oral mucosa. NECK: Trachea midline. Supple, nontender. CARDIOVASCULAR: Regular rate and rhythm without murmurs, gallops, or rubs. No JVD. RESPIRATORY/CHEST: Symmetric, unlabored respirations. rhonchi to auscultation. Breath sounds equal bilaterally. On 35% T-Bruce GASTROINTESTINAL: Abdomen soft, non-tender, nondistended. No guarding. Bowel sounds present. Nepro infusing at 55ml/hr via PEG tube GENITOURINARY: Without palpable bladder distension. Sloan catheter in with clear urine. Scrotal edema. MUSCULOSKELETAL: Gout tophi to fingers, knees, elbows and both ankles. Trace edema to extremities. NEUROLOGICAL: Tracheostomy on T-bruce. Patient is awake and alert tracking with his eyes,followed commands with all 4 extremities, trying to mouth some words. PSYCHIATRIC: No obvious anxiety/depression. no apparent hallucinations or other psychotic thought process. . Diagnostic Tests Laboratory Laboratory Tests Test 03/19/17 03:00 03/20/17 02:59 03/20/17 16:02 03/21/17 05:00 White Blood Count 13.3 TH/MM3 (4.0-11.0) 19.0 TH/MM3 (4.0-11.0) Red Blood Count 3.03 MIL/MM3 (4.50-5.90) 3.35 MIL/MM3 (4.50-5.90) Hemoglobin 8.9 GM/DL (13.0-17.0) 9.6 GM/DL (13.0-17.0) Hematocrit 26.6 % (39.0-51.0) 29.3 % (39.0-51.0) Mean Corpuscular Volume 87.6 FL (80.0-100.0) 87.5 FL (80.0-100.0) Mean Corpuscular Hemoglobin 29.4 PG (27.0-34.0) 28.7 PG (27.0-34.0) Mean Corpuscular Hemoglobin Concent 33.5 % (32.0-36.0) 32.8 % (32.0-36.0) Red Cell Distribution Width 15.5 % (11.6-17.2) 15.6 % (11.6-17.2) Platelet Count 243 TH/MM3 (150-450) 340 TH/MM3 (150-450) Mean Platelet Volume 9.2 FL (7.0-11.0) 9.5 FL (7.0-11.0) CBC Comment AUTO DIFF Differential Total Cells Counted 100 Neutrophils % (Manual) 76 % (16-70) Band Neutrophils % 18 % (0-6) Lymphocytes % 3 % (9-44) Monocytes % 1 % (0-8) Neutrophils # (Manual) 12.8 TH/MM3 (1.8-7.7) Metamyelocytes 2 % (0-1) Differential Comment FINAL DIFF MANUAL Toxic Granulation 1+ (NORMAL) Platelet Estimate NORMAL (NORMAL) Platelet Morphology Comment NORMAL (NORMAL) Blood Urea Nitrogen 91 MG/DL (7-18) 101 MG/DL (7-18) 80 MG/DL (7-18) Creatinine 2.33 MG/DL (0.60-1.30) 2.24 MG/DL (0.60-1.30) 1.66 MG/DL (0.60-1.30) Random Glucose 322 MG/DL (74-106) 260 MG/DL (74-106) 171 MG/DL (74-106) Total Protein 5.5 GM/DL (6.4-8.2) Albumin 2.0 GM/DL (3.4-5.0) 1.8 GM/DL (3.4-5.0) Calcium Level 7.9 MG/DL (8.5-10.1) 7.6 MG/DL (8.5-10.1) 7.8 MG/DL (8.5-10.1) Alkaline Phosphatase 177 U/L (45-117) Aspartate Amino Transf (AST/SGOT) 59 U/L (15-37) Alanine Aminotransferase (ALT/SGPT) 22 U/L (12-78) Total Bilirubin 0.6 MG/DL (0.2-1.0) Sodium Level 145 MEQ/L (136-145) 147 MEQ/L (136-145) 146 MEQ/L (136-145) Potassium Level 3.0 MEQ/L (3.5-5.1) 2.6 MEQ/L (3.5-5.1) 2.9 MEQ/L (3.5-5.1) 3.1 MEQ/L (3.5-5.1) Chloride Level 110 MEQ/L (98-107) 111 MEQ/L (98-107) 108 MEQ/L (98-107) Carbon Dioxide Level 25.7 MEQ/L (21.0-32.0) 24.4 MEQ/L (21.0-32.0) 25.4 MEQ/L (21.0-32.0) Anion Gap 9 MEQ/L (5-15) 12 MEQ/L (5-15) 13 MEQ/L (5-15) Estimat Glomerular Filtration Rate 29 ML/MIN (>89) 30 ML/MIN (>89) 42 ML/MIN (>89) Phosphorus Level 2.2 MG/DL (2.5-4.9) 1.6 MG/DL (2.5-4.9) 3.8 MG/DL (2.5-4.9) Random Vancomycin Level 18.0 COMMENT Test 03/21/17 05:10 Prothrombin Time 12.1 SEC (9.8-11.6) Prothromb Time International Ratio 1.1 RATIO Result Diagram: 03/21/17 0500 03/21/17 0500 Procedures 01/25/2017- Retrievable IVC Filter placement 01/26/17-lumbar puncture with fluoroscopy-by interventional radiology 02/01/17- lumbar puncture fluoroscopy by interventional radiology 02/10/17- Endotracheal Intubation 02/10/17-left IJ central venous line placed 02/10/17-left femoral arterial line placed 02/11/17-Diagnostic and therapeutic bronchoscopy with bronchoalveolar lavage 02/11/17-Left upper extremity incision and debridement with excision of septic cephalic vein 02/13/17- Extubated 02/20/17- endotracheal intubation 02/20/17- Left subclavian central line placement 02/20/17-Right radial A-line placement 02/22/17-EGD/colonoscopy 02/28/17-right radial a line 02/28/17- Endotracheal intubation 02/28/17- right sided introducer catheter placement 02/28/17- Right IJ central line placement 02/28/17-Right chest tube placement 02/28/17- Embolization of inferior and superior sacral branches of right internal iliac artery 03/01/17- Hemodialysis access catheter 03/03/17-Right IJ central line placement 03/11/17-Extubated 03/13/17- Endotracheal intubation 03/14/17-Tracheostomy placement 03/15/17-PEG tube placement . Assessment and Plan Disease Oriented Problem List: (1) Acute respiratory failure (2) Septic shock (3) Aspiration pneumonia (4) Acute renal failure (5) CKD (chronic kidney disease) stage 3, GFR 30-59 ml/min (6) Cardiomyopathy (7) DVT of lower extremity, bilateral (8) Thrombophlebitis arm (9) Diabetes mellitus (10) Gout (11) HTN (hypertension) (12) Hyperlipidemia Symptom Scale: (1) Shortness of breath 0-10 Scale: Unable to quantify Comment: Currently trached and on mechanical ventilation . (2) Debility 0-10 Scale: Unable to quantify Comment: Progressive. . (3) Pain 0-10 Scale: Unable to quantify Comment: History of falls, gout, arthritis, and currently bedbound. . Pertinent Non-Medical Issues Psychosocial:Patient was born and raised in [place], [place]. Patient was once for 20 years, now and has 2 adult sons. 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 He recently resigned due to failing health. Spiritual: No worship affiliation Legal: Per [place] statutes, in the absence of written advanced directives healthcare proxy decision making falls to the patient's 2 adult children. Patient's son (Davie) lives locally and wishes to participate in the role of the healthcare proxy decision maker. Palliative care has attempted to contact the patient's son, Arnel, who lives in [facility]; awaiting return phone call. Ethical issues impacting care: No known ethical issues impacting care at this time. . Important Contacts Son-Davie Kerr - Son-Arnel Kerr- -cell -home Sister-Deb Curry . Prognosis Mr Kerr is a 62 years old male with a past medical history of hypertension, asthma, diabetes, hyperlipidemia, chronic kidney disease and gout. Patient presented to the ED on 01/22/17 complaining of bilateral knee and right arm pain after a mechanical fall 4 or 5 days prior to coming to the ER. Clinical course complicated with increased weakness leading to numerous diagnostic work ups for possible transverse myelitis, DVTs, retroperitoneal hematoma, aspiration pneumonia, intubation x 4 times, septic and hemorrhagic shock requiring support with pressors and multiple pRBC, FFP transfusions as well as platelets and cryo , renal failure requiring hemodialysis and sacral wound Given ongoing comorbidities, and prolonged hospitalization, patient remains at risk for further complications, deterioration and decline leading to . Code Status: Full Code Plan PLAN: Legal decision maker: Patient is currently intubated, sedated on a mechanical ventilation and is not able to make any medical decisions for himself at this time. It is unclear if patient will regain capacity to make medical decisions at this time. Patient has 2 adult sons Davie Kerr and Arnel Kerr. According to [place] Statute, his two aforementioned sons will serve as his health care proxys. Patient`s son Davie is acting in the role of HCP decision maker independently at this time given that he is the one who is reasonably available for consultation. Goals: 03/19/17- Remain Aggressive. Discussed probable need for patient to be discharged to a facility that focuses on weaning him off the ventilator. CODE STATUS: Full Code SYMPTOMS: * Shortness of breath: Multifactorial. Patient has had aspiration pneumonia. Patient has been intubated 4 times this hospitalization. Patient has a tracheostomy. Currently on T-Bruce 35% . Patient on duonebs. Patient also on Hydrocortisone 50mg q 6 hours. [facility]. * Pain: Patient presented initially complaining of pain to right wrist and bilateral knees after a mechanical fall. Patient has a history of gout, arthritis, multiple falls and is currently bedbound. Patient on Oxycodone q 4 hours ATC. Patient does not appear to be in pain. Patient also on Hydrocortisone. * Debility: Progressive. Patient has had decline in his health for the past 4 months, including progressively increased weakness and difficulty ambulating and prolonged hospitalization with multiple setbacks. Patient remains at high risk for further physical deconditioning and debility. PT consulted. Palliative care will continue to follow the patient during hospital course as condition evolves, to assist patient/decision-maker with understanding of their medical conditions, weighing benefits/burdens of treatment options, for clarification of goals of treatment. Additionally will assist with any symptoms of palliative concern. . Attestation To help prompt me to consider important information that might be impacting today's encounter and assessment, information from prior notes written by myself or my colleagues may have been "brought forward" into today's note. My signature on this note, however, is an attestation that I personally performed the exam, history, and/or decision-making noted today, and, unless otherwise indicated, the interactions with patient, family, and staff as well as the review of records all occurred today. I also attest that the listed assessment and stated plan reflect my best clinical judgment today based on the combination of historical information, prior notes, and today's exam/ interactions. When time spent is documented, it refers only to time spent today by the signer, or if indicated, combined time spent today by collaborating physician/nurse practitioner. Aftab Cartwright Mar 21, 2017 16:43
[2017-03-21] MEDS: RESP: ALBUTEROL 2.5 MG/3 ML NEB (PRN) NEB (19:21)
[2017-03-21] MEDS: ATORVASTATIN 10 MG TAB PO SCH (22:04)
[2017-03-21] MEDS ORDERED: MAGNESIUM SULFATE INJ 2 GM in SODIUM CHLORIDE 0.9% INJ 96 ML IV PRN (22:45)
[2017-03-21] MEDS ORDERED: POTASSIUM PHOSPHATE INJ 30 MMOL in SODIUM CHLOR 0.9% 250 ML INJ 250 ML IV PRN (22:45)
[2017-03-21] MEDS ORDERED: MAGNESIUM OXIDE 400 MG TAB PO PRN (22:45)
[2017-03-21] MEDS ORDERED: POTASSIUM PHOSPHATE MONOBASIC 500 MG TAB PO PRN (22:45)
[2017-03-21] MEDS ORDERED: MAGNESIUM SULFATE INJ 4 GM in SODIUM CHLORIDE 0.9% INJ 92 ML IV PRN (22:45)
[2017-03-21] MEDS ORDERED: POTASSIUM CHLOR 40 MEQ PREMIX 100 ML IV PRN ×2 (22:45)
[2017-03-21] MEDS ORDERED: POTASSIUM CHLORIDE 25 MEQ EFFERVESCENT TAB PO PRN (22:45)
[2017-03-21] MEDS ORDERED: POTASSIUM PHOSPHATE MONOBASIC 500 MG TAB PO/TUBE PRN (22:45)
[2017-03-21] MEDS ORDERED: SODIUM PHOSPHATE INJ 30 MMOL in SODIUM CHLOR 0.9% 250 ML INJ 240 ML IV PRN (22:45)
[2017-03-22] VITALS (18 sets, daily range): BP systolic 115–172; BP diastolic 63–98; PULSE 64–82; RESP 16–26; TEMP 97.2–99.8; O2SAT 97–100
[2017-03-22] MEDS: HYDROCORTISONE SOD SUCCINATE 100 MG VIAL IV PUSH SCH ×4 (00:08→18:13)
[2017-03-22] MEDS: cefTAZidime INJ 2,000 MG in SODIUM CHLORIDE 0.9% INJ 100 ML IV SCH ×2 (01:26→13:57)
[2017-03-22] MEDS: oxyCODONE HCL ORAL CONC 5 MG/0.25 ML SYRINGE PO SCH ×6 (02:00→22:00)
[2017-03-22] MEDS: POTASSIUM CHLOR 20 MEQ PREMIX 100 ML IV PRN ×3 (03:54→15:24)
[2017-03-22] MEDS: INSULIN NovoLIN REGULAR SUPPLEMENTAL SCALE SQ SCH ×6 (04:54→20:46)
[2017-03-22] MEDS: METOCLOPRAMIDE HCL 10 MG/2 ML VIAL IV PUSH SCH ×3 (05:40→22:06)
[2017-03-22] MEDS: CHLORHEXIDINE 0.12% (ORAL KIT) 15 ML CUP MT SCH ×2 (08:00→20:45)
[2017-03-22] MEDS: ATENOLOL 25 MG TAB PO SCH ×2 (09:00→20:49)
[2017-03-22] MEDS: FUROSEMIDE 40 MG/4 ML VIAL IV PUSH SCH ×2 (09:00→18:13)
[2017-03-22] MEDS: INSULIN DETEMIR 100 UNITS/ML VIAL SQ SCH ×2 (09:00→22:05)
[2017-03-22] MEDS: LACTOBACILLUS ACIDOPHILUS TAB PO SCH ×3 (09:00→18:13)
[2017-03-22] MEDS: LANSOPRAZOLE SOLUTAB 30 MG TAB NG SCH ×2 (09:00→20:49)
[2017-03-22] MEDS: SODIUM CHLORIDE 0.9% FLUSH 10 ML FLUSH IV FLUSH SCH ×3 (09:00→20:49)
[2017-03-22] MEDS: GENTAMICIN SULFATE (DIALYSIS USE ONLY) 20 MG/2 ML VIAL OTHER PRN (10:53)
--- NOTE | 2017-03-22 12:02 | HHI.HCPN ---
Reason for visit a. To assist with evaluation and management of symptoms including: shortness of breath, pain, debility b. To assist medical decision maker(s) with: better understanding of current medical conditions; weighing benefits/burdens of medical treatment options; making medical treatment decisions. Subjective/Interval History Mr Kerr is a 62 years old male with a past medical history of hypertension, asthma, diabetes, hyperlipidemia, chronic kidney disease and gout. Patient presented to the ED on 01/22/17 complaining of bilateral knee and right arm pain after a mechanical fall 4 or 5 days prior to coming to the ER. Patient has been experiencing progressive weakness of bilateral lower extremities as well as bilateral upper extremities prior to ER visit. Patient seen in ICU, awake alert seems to be watching TV. Patient following simple commands with all 4 extremities-has noticeable decreased strength in all extremities. Patient trying to mouth some words- getting more interactive. Patient remains afebrile. SBP mid 100s to 160s. Tube feeds Nepro at goal infusing at 55 mL's- tolerating per bedside RN. Patient ventilated through a tracheostomy and currently on vent settings PRVC/AC 16/500/5/1.00s/40%. Bedside RN states that patient has just finished hemodialysis and will be placed back on T piece. Patient tolerated T-bruce 35% yesterday for approximately 6 hours. Hemodialysis today-1000 mL's removed. No recent laboratory workup and imaging. Case discussed with bedside RN Nabila Brooke . Family/friend interactions No family at bedside during visit. Advance Directives Living Will: Never completed Health Care Surrogate: Never completed Durable Power of Varnish Melter: Never completed Advance Directive Specifics Documented care wishes: No known documented care wishes have been completed. . Objective Vital Signs Date Time Temp Pulse Resp B/P (MAP) Pulse Ox O2 Delivery O2 Flow Rate FiO2 03/22/17 10:00 78 03/22/17 08:00 97.2 68 17 143/77 (99) 97 03/22/17 08:00 68 03/22/17 08:00 40 03/22/17 07:42 100 40 03/22/17 07:00 16 03/22/17 06:00 72 03/22/17 04:09 99 40 03/22/17 04:00 40 03/22/17 04:00 76 03/22/17 04:00 99.2 76 22 163/63 (96) 100 03/22/17 02:00 68 03/22/17 00:26 99 40 03/22/17 00:00 98.8 64 16 115/64 (81) 99 03/22/17 00:00 64 03/22/17 00:00 40 03/21/17 22:00 64 03/21/17 21:55 99 40 03/21/17 20:00 99.3 74 22 130/77 (94) 94 03/21/17 20:00 74 03/21/17 20:00 40 03/21/17 19:21 97 40 03/21/17 19:16 35 03/21/17 18:00 70 03/21/17 16:00 74 03/21/17 16:00 98.9 74 21 158/81 (106) 97 03/21/17 16:00 40 03/21/17 14:25 95 T-piece 6.00 35 03/21/17 14:00 74 03/21/17 12:00 76 03/21/17 12:00 98.7 76 21 143/80 (101) 99 03/21/17 12:00 40 Intake & Output 03/22/17 03/22/17 07:00 19:00 Intake Total 695 ml Output Total 1100 ml 1000 ml Balance -405 ml -1000 ml Tube Feeding 595 ml Tube Irrigant 100 ml Output Urine Total 1100 ml Hemodialysis 1000 ml # Bowel Movements 1 Physical Exam CONSTITUTIONAL/GENERAL: This is an adequately nourished patient, trached on mechanical ventilation with no sedation. TUBES/LINES/DRAINS: LIJ Vas Cath, PEG tube, Tracheostomy, PIVs, FC SKIN: No jaundice. Ecchymoses on upper extremities. Sacral pressure wound and L heel pressure injury. Afebrile. Not diaphoretic. HEAD: Atraumatic. Normocephalic. EYES: Pupils equal and round, slight reaction.No scleral icterus. No injection or drainage. Fundi not examined. ENT: Trached with no sedation. Nose without bleeding or purulent drainage. Moist oral mucosa. NECK: Trachea midline. Supple, nontender. CARDIOVASCULAR: Regular rate and rhythm without murmurs, gallops, or rubs. No JVD. RESPIRATORY/CHEST: Symmetric, unlabored respirations. rhonchi to auscultation. Breath sounds equal bilaterally. GASTROINTESTINAL: Abdomen soft, non-tender, nondistended. No guarding. Bowel sounds present. Nepro infusing at 55ml/hr via PEG tube GENITOURINARY: Without palpable bladder distension. Sloan catheter in with clear urine. Scrotal edema. MUSCULOSKELETAL: Gout tophi to fingers, knees, elbows and both ankles. Trace edema to extremities. NEUROLOGICAL: Tracheostomy on T-bruce. Patient is awake and alert watching television,followed simple commands with all 4 extremities, trying to mouth some words. PSYCHIATRIC: No obvious anxiety/depression. no apparent hallucinations or other psychotic thought process. . Diagnostic Tests Laboratory Laboratory Tests Test 03/20/17 02:59 03/20/17 16:02 03/21/17 05:00 03/21/17 05:10 Blood Urea Nitrogen 101 MG/DL (7-18) 80 MG/DL (7-18) Creatinine 2.24 MG/DL (0.60-1.30) 1.66 MG/DL (0.60-1.30) Random Glucose 260 MG/DL (74-106) 171 MG/DL (74-106) Albumin 1.8 GM/DL (3.4-5.0) Calcium Level 7.6 MG/DL (8.5-10.1) 7.8 MG/DL (8.5-10.1) Phosphorus Level 2.2 MG/DL (2.5-4.9) 1.6 MG/DL (2.5-4.9) 3.8 MG/DL (2.5-4.9) Sodium Level 147 MEQ/L (136-145) 146 MEQ/L (136-145) Potassium Level 2.6 MEQ/L (3.5-5.1) 2.9 MEQ/L (3.5-5.1) 3.1 MEQ/L (3.5-5.1) Chloride Level 111 MEQ/L (98-107) 108 MEQ/L (98-107) Carbon Dioxide Level 24.4 MEQ/L (21.0-32.0) 25.4 MEQ/L (21.0-32.0) Anion Gap 12 MEQ/L (5-15) 13 MEQ/L (5-15) Estimat Glomerular Filtration Rate 30 ML/MIN (>89) 42 ML/MIN (>89) White Blood Count 19.0 TH/MM3 (4.0-11.0) Red Blood Count 3.35 MIL/MM3 (4.50-5.90) Hemoglobin 9.6 GM/DL (13.0-17.0) Hematocrit 29.3 % (39.0-51.0) Mean Corpuscular Volume 87.5 FL (80.0-100.0) Mean Corpuscular Hemoglobin 28.7 PG (27.0-34.0) Mean Corpuscular Hemoglobin Concent 32.8 % (32.0-36.0) Red Cell Distribution Width 15.6 % (11.6-17.2) Platelet Count 340 TH/MM3 (150-450) Mean Platelet Volume 9.5 FL (7.0-11.0) Random Vancomycin Level 18.0 COMMENT Prothrombin Time 12.1 SEC (9.8-11.6) Prothromb Time International Ratio 1.1 RATIO Test 03/21/17 23:09 Phosphorus Level 4.2 MG/DL (2.5-4.9) Result Diagram: 03/21/17 0500 03/21/17 0500 Procedures 01/25/2017- Retrievable IVC Filter placement 01/26/17-lumbar puncture with fluoroscopy-by interventional radiology 02/01/17- lumbar puncture fluoroscopy by interventional radiology 02/10/17- Endotracheal Intubation 02/10/17-left IJ central venous line placed 02/10/17-left femoral arterial line placed 02/11/17-Diagnostic and therapeutic bronchoscopy with bronchoalveolar lavage 02/11/17-Left upper extremity incision and debridement with excision of septic cephalic vein 02/13/17- Extubated 02/20/17- endotracheal intubation 02/20/17- Left subclavian central line placement 02/20/17-Right radial A-line placement 02/22/17-EGD/colonoscopy 02/28/17-right radial a line 02/28/17- Endotracheal intubation 02/28/17- right sided introducer catheter placement 02/28/17- Right IJ central line placement 02/28/17-Right chest tube placement 02/28/17- Embolization of inferior and superior sacral branches of right internal iliac artery 03/01/17- Hemodialysis access catheter 03/03/17-Right IJ central line placement 03/11/17-Extubated 03/13/17- Endotracheal intubation 03/14/17-Tracheostomy placement 03/15/17-PEG tube placement . Assessment and Plan Disease Oriented Problem List: (1) Acute respiratory failure (2) Septic shock (3) Aspiration pneumonia (4) Acute renal failure (5) CKD (chronic kidney disease) stage 3, GFR 30-59 ml/min (6) Cardiomyopathy (7) DVT of lower extremity, bilateral (8) Thrombophlebitis arm (9) Diabetes mellitus (10) Gout (11) HTN (hypertension) (12) Hyperlipidemia Symptom Scale: (1) Shortness of breath 0-10 Scale: Unable to quantify Comment: Currently trached and on mechanical ventilation . (2) Debility 0-10 Scale: Unable to quantify Comment: Progressive. . (3) Pain 0-10 Scale: Unable to quantify Comment: History of falls, gout, arthritis, and currently bedbound. . Pertinent Non-Medical Issues Psychosocial:Patient was born and raised in [place], [place]. Patient was once for 20 years, now and has 2 adult sons. 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 He recently resigned due to failing health. Spiritual: No mormon affiliation Legal: Per [place] statutes, in the absence of written advanced directives healthcare proxy decision making falls to the patient's 2 adult children. Patient's son (Davie) lives locally and wishes to participate in the role of the healthcare proxy decision maker. Palliative care has attempted to contact the patient's son, Arnel, who lives in [facility]; awaiting return phone call. Ethical issues impacting care: No known ethical issues impacting care at this time. . Important Contacts Son-Davie Kerr - Son-Arnel Kerr- -cell -home Sister-Deb Curry . Prognosis Mr Kerr is a 62 years old male with a past medical history of hypertension, asthma, diabetes, hyperlipidemia, chronic kidney disease and gout. Patient presented to the ED on 01/22/17 complaining of bilateral knee and right arm pain after a mechanical fall 4 or 5 days prior to coming to the ER. Clinical course complicated with increased weakness leading to numerous diagnostic work ups for possible transverse myelitis, DVTs, retroperitoneal hematoma, aspiration pneumonia, intubation x 4 times, septic and hemorrhagic shock requiring support with pressors and multiple pRBC, FFP transfusions as well as platelets and cryo , renal failure requiring hemodialysis and sacral wound Given ongoing comorbidities, and prolonged hospitalization, patient remains at risk for further complications, deterioration and decline leading to . Code Status: Full Code Plan PLAN: Legal decision maker: Patient is currently intubated, sedated on a mechanical ventilation and is not able to make any medical decisions for himself at this time. It is unclear if patient will regain capacity to make medical decisions at this time. Patient has 2 adult sons Davie Kerr and Arenl Kerr. According to [place] Statute, his two aforementioned sons will serve as his health care proxys. Patient`s son Davie is acting in the role of HCP decision maker independently at this time given that he is the one who is reasonably available for consultation. Goals: 03/21/17- Remain Aggressive. CODE STATUS: Full Code SYMPTOMS: * Shortness of breath: Multifactorial. Patient has had aspiration pneumonia. Patient has been intubated 4 times this hospitalization. Patient has a tracheostomy. On T-Bruce trials. Patient on duonebs. Patient also on Hydrocortisone 50mg q 6 hours. Consult to [facility] placed. * Pain: Patient presented initially complaining of pain to right wrist and bilateral knees after a mechanical fall. Patient has a history of gout, arthritis, multiple falls and is currently bedbound. Patient on Oxycodone q 4 hours ATC. Patient does not appear to be in pain. Patient also on Hydrocortisone. * Debility: Progressive. Patient has had decline in his health for the past 4 months, including progressively increased weakness and difficulty ambulating and prolonged hospitalization with multiple setbacks. Patient remains at high risk for further physical deconditioning and debility. PT and OT following with patient. Recommending continued PT and OT sessions since patient is hemodynamically stable and somewhat more alert. Patient may benefit from PT and OT at rehab. Palliative care will continue to follow the patient during hospital course as condition evolves, to assist patient/decision-maker with understanding of their medical conditions, weighing benefits/burdens of treatment options, for clarification of goals of treatment. Additionally will assist with any symptoms of palliative concern. . Attestation To help prompt me to consider important information that might be impacting today's encounter and assessment, information from prior notes written by myself or my colleagues may have been "brought forward" into today's note. My signature on this note, however, is an attestation that I personally performed the exam, history, and/or decision-making noted today, and, unless otherwise indicated, the interactions with patient, family, and staff as well as the review of records all occurred today. I also attest that the listed assessment and stated plan reflect my best clinical judgment today based on the combination of historical information, prior notes, and today's exam/ interactions. When time spent is documented, it refers only to time spent today by the signer, or if indicated, combined time spent today by collaborating physician/nurse practitioner. Aftab Cartwright Mar 22, 2017 12:02
[2017-03-22] MEDS: SODIUM CHLOR 0.9% 1000 ML INJ 1,000 ML IV SCH (13:00)
--- NOTE | 2017-03-22 13:20 | HHI.CCPN ---
Subjective Remarks/Hospital Course Date of admission: 01/22 Date of critical care medicine consult 02/10 due to acute hypoxemic respiratory failure requiring emergent intubation 62-year-old male with a past medical history of hypertension, hyperlipidemia, diabetes mellitus, gout, uric acid kidney stones, kidney disease of unknown stage who originally presented to [facility] emergency department on 01/22 after a fall in which he sustained a right distal ulna fracture. He had been experiencing a gradual primarily lower extremity weakness as well as upper extremity weakness that was progressive. Neurology consult was obtained. MRI revealed no acute stroke. He had multifocal white matter changes. Tiny lacunar infarcts of the brainstem. Lumbar MRI report states L4-L5 disc protrusion with cetnral canal stenosis. Dr. Blackwell evaluated and states no cord compression on MRI C/T spine and recommended nonoperative management. Symptoms were felt to be consistent with transverse myelitis and he underwent Solumedrol 250 mg IV q6 hours 01/27-02/02. He also was found to have occlusive thrombus in the bilateral posterior tibial veins. Heparin was being avoided because he had traumatic lumbar puncture on 01/26 and 02/01. IVC filter was placed 01/25. He was undergoing physical therapy, reportedly making some improvements with plan to eventually discharged home with his son (max assist standing, and bed to chair per PT note). Apparently he had some vomiting the evening of 02/09 and additional vomiting on 02/10. He had a fever 102.8 on 02/09. Last recorded bowel movement was 02/03. Tonight he had acute onset of severe hypoxemia and respiratory distress. [facility] called and he was brought emergently to [facility] where his sats were 64% on 100% nonrebreather with mean arterial pressure 44. He was emergently intubated, CVL and art line placed. He is in septic shock. SUBJ: 02/11: Patient remains intubated sedated, critically ill. FiO2 reduced to 80% after increasing PEEP to 12. In severe septic shock Levophed at 16 mcg/m, vasopressin at 0.04 international units. D/W vascular surgery Dr. Enciso. He performed bedside Left upper extremity incision and debridement and excision of septic cephalic vein. 02/12: Remains intubated sedated profoundly septic, in shock on vasopressin and 7 mcg/min Levophed. FiO2 has improved to 45%, WBC count remains elevated with 20 ,000 white count significant left shift. Slight improvement in creatinine 2.9 urine output 750 ml 24 hours. 2-D echo shows LV ejection fraction 20-25%, no vegetation reported. Blood cultures 4 staph aureus. Wound culture pending 02/13: Remains critically ill but stable to improving. WBC count is down to 16, creatinine improving to 2.36. Off all pressors. Urine output also improving. 1.5L in 24 hours 02/14: Extubated 02/13. Tolerating well. WBC now down to 12.8. Creat improving 2.3 to 2. UO 3.4L. remains off all pressors. Was started on Precedex yesterday night for agitation, currently on 0.5 g per KG per hour. Chest x-ray shows left more than right air space disease 02/20/17 Re consult: 62-year-old male who was originally admitted for lower extremity weakness and found to have what was thought to be possible transverse myelitis. His hospital course his included a healthcare associated pneumonia, septic thrombophlebitis, DVT. He was most recently in the hospital floor where he had significant nausea and vomiting and diarrhea. His C. difficile test was recently negative. However, he has experienced worsening acute on chronic renal failure, hypotension, tachycardia, and severe hypoxemia. He did have a bout of vomiting earlier today, and his hospitalist attending suspects that he may have aspirated. He arrives by rapid response to the ICU with a nonrebreather in place in severe respiratory distress with SPO2 of 85%. I emergently intubate the patient, see separate procedure note for details. At this point the patient was hypotensive and tachycardic. He does have a history of an EF of 20%, however clinically he appears in florid septic shock. I placed central line and arterial line started vasopressors and gentle IV fluid resuscitation with 1 L of LR. Patient today was empirically broadened to vancomycin and Zosyn from his oxacillin which was initially treating MSSA bacteremia. He is recultured. Critical-care medicine is consulted to evaluate and manage his worsening multiorgan system failure and decompensated septic shock 02/21: Patient remains intubated sedated. Becomes anxious tachypnea on sedation lightening. Chest x-ray shows mild left lower lobe infiltrate. WBC count is slightly improved today from 23.2 t0 21. C Diff negative. UO adequate, creat slightly worsening. 1.57 today 02/22: Remains intubated sedated tolerated CPAP yesterday, plan is for EGD/ Colonscopy. WBC count back to normal. UO adequate. Creat stable 02/23: Tolerating CPAP trials following commands. Will do a spontaneous breathing trials. Status post EGD colonoscopy yesterday -Gastritis, esophagitis. Diverticulosis and multiple polyps. Urine output adequate but creatinine increasing to 1.7 with patient requiring multiple straight catheterization. We'll reinsert Sloan. 02/24: Breathing comfortably 24 hours after extubation. Protects airway well. 02/25: Excoriate bottom, will place rectal FMS. Start pureed diet. 02/26: Afebrile. Complaining of nausea and vomiting this afternoon. Increased stool output. Continue potassium replacement today. 02/27: 10 PM overnight, acutely hypotensive. Received 3 units PRBCs. Antibiotic coverage broadened to piperacillin/tazobactam, cortisol and 1 dose of vancomycin. Oxacillin drip currently on hold. Symptomatically, patient continues to vague abdominal pain/nausea vomiting which is unchanged for the past several days. Lipase elevated yesterday. Lactic acid normal. Troponin normal. Urinary retention after removal of Sloan. Straight catheter 1300. Cc 02/28: New diagnosis large retroperitoneal hematoma. Received 10 PRBC, 14 FFP, 2 platelets, 1 cryo-, 6 g calcium chloride, 2 is magnesium sulfate and 4 mg Bumex. CTA abdomen revealed possible arterial bleeds iliac, lumbar. Patient is currently on norepinephrine and epinephrine drips and possible need right nephrostomy tube placement due to large hematoma compressing ureter. Intra-abdominal bladder pressures are currently 13 03/01: Afebrile. Received 25 g albumin and 1 unit PRBCs overnight. Intra- abdominal bladder pressures currently 19. Currently on 3 micrograms per minute of norepinephrine. Aaxdb-tm-reza 1 out of 4 on 4 mics grams per kilogram per minute of cisatracurium. 03/02: Slightly hypothermic overnight. Hemoglobin appears to have stabilized. Troponin bump overnight likely secondary to demand ischemia from hypotension. Hemodynamically stable off all vasopressors. 03/03: Received 1 PRBCs overnight. 3 units currently. Off all vasopressors. Likely rebleeding. Stool is dark. 03/04: Remains unstable. Ventilator dependent. 03/05: afebrile. hgb stable. 03/06: bumex drip started overnight. good uop after bumex initiated. still grossly volume overloaded. Cr downtrending. more awake with transition to propofol. still too volume overloaded to tolerate extubation. hgb stable. 03/07: Afebrile. Tolerating tube feeds at goal with Nepro. Positive BM. On low-dose fentanyl and propofol drips. Potassium currently being replaced. 03/08: Eyes will open on ventilator. Afebrile. Tolerating tube feeding. Failed PSV trial yesterday due to apnea. 03/09: Following commands. Tmax 101. Tolerating tube feeding. One hour PSV trial yesterday. Currently tolerating well so far today 1.5 hours 03/10: Low-grade temperatures. Tolerating PSV trial 10 hours yesterday. Currently at 5/5 at 35%. We'll probably attempt extubation a.m. after hemodialysis. 03/11: Extubated currently in 4 L nasal cannula. Thick secretions thick clear with cough. Currently afebrile. Tolerating diet previously. Subjective 03/12: Sleepy this morning but arouses. Following commands. Refusing diet at the present time. On 2 L nasal cannula. 03/13: Patient reintubated last night for worsening respiratory status. Currently sedated on mechanical ventilation. Became hypotensive following intubation and is on Levophed 20 mics per minute. 03/14: Sedated, orally intubated on mech vent at the time of my evaluation this AM, subsequently underwent perc trach placement. Remains on levophed for pressor support. Transfused 1 unit PRBCs today. Persistent 03/15: Trach site clean, dry. CXR with bilateral basilar infiltrates. 03/16: Pulmonary congestion persists. Clinical condition not improving. Prognosis becoming increasingly bleak. 03/17: Glucose intolerance worse. No improvement in neurological function. 03/18: Remains on mechanical ventilation via tracheostomy. Off pressors now. Neurologic status remains poor. 03/19: Drowsy, encephalopathic, arousable. On mechanical ventilation via tracheostomy. Levemir increased for hyperglycemia today. Remains off pressors 03/20: More awake, moves both upper extremities. On mechanical ventilation via tracheostomy. Daily C Pap trials ongoing. 03/21: Awake and alert. On mechanical ventilation via tracheostomy. Opens and closes eyes on command. 03/22: Awake and alert. Tolerated T PIECE for 7 hours yesterday. Dialyzed today. Objective Vital Signs Date Time Temp Pulse Resp B/P (MAP) Pulse Ox O2 Delivery O2 Flow Rate FiO2 03/22/17 13:07 100 40 03/22/17 10:00 78 03/22/17 08:00 97.2 17 143/77 (99) 03/21/17 14:25 T-piece 6.00 Intake and Output 03/22/17 03/22/17 03/23/17 08:00 16:00 00:00 Intake Total 695 ml Output Total 1100 ml 1000 ml Balance -405 ml -1000 ml Result Diagram: 03/21/17 0500 03/21/17 0500 Imaging Last 48 hours Impressions Chest X-Ray 03/14/17 0000 Signed Impressions: Service Date/Time: Tuesday, March 14, 2017 13:41 - CONCLUSION: 1. Tracheostomy in good position. 2. Left lower lung infiltrates and left pleural effusion. Candido Patton MD Chest X-Ray 03/13/17 0000 Signed Impressions: Service Date/Time: Monday, March 13, 2017 01:52 - CONCLUSION: 1. Bibasilar densities. 2. Endotracheal tube tip not well-seen but appears to be in good position. Armando Dodd MD Last Impressions Chest X-Ray 03/11/17 0600 Signed Impressions: Service Date/Time: Saturday, March 11, 2017 05:10 - CONCLUSION: 1. No significant change in the bibasilar densities. 2. Small left effusion. Benjamin Person MD Aortography 02/28/17 0000 Signed Impressions: Service Date/Time: Tuesday, February 28, 2017 08:01 - CONCLUSION: 1. Active hemorrhage from distal right lateral sacral and iliolumbar branches successfully coil and Gelfoam embolized, as above. Juan Bhakta MD Abdomen/Pelvis CT 02/28/17 0000 Signed Impressions: Service Date/Time: Tuesday, February 28, 2017 06:51 - CONCLUSION: 1. The right retroperitoneal hematoma has increased in size, as above. There are 2 serpiginous arterially enhancing structures visualized, one in the right psoas muscle and another extending into the hematoma at the right iliac fossa. These could represent sites of continued active bleeding. 2. Stable moderate size left and small right pleural effusion with associated compressive atelectasis. 3. Stable small volume of free fluid in the abdomen and pelvis. There is also anasarca. The findings concerning the retroperitoneal hematoma were discussed with Dr. Aguiar via telephone at approximately 7: 10 AM on 02/28/2017. Angelo Allen MD Chest CT 02/27/17 0000 Signed Impressions: Service Date/Time: Monday, February 27, 2017 18:12 - CONCLUSION: 1. Bilateral pleural effusions with bibasilar atelectasis, left greater than right. Tom Sanchez MD Abdomen X-Ray 02/26/17 0000 Signed Impressions: Service Date/Time: Sunday, February 26, 2017 14:52 - CONCLUSION: 1. Nonobstructive bowel gas pattern. Juan Bhakta MD Upper Extremity Ultrasound 02/10/17 0000 Signed Impressions: Service Date/Time: Friday, February 10, 2017 18:46 - CONCLUSION: Occlusive thrombus in the cephalic and basilic veins. Benjamin Person MD Lung Scan- Nuclear Medicine 02/10/17 0000 Signed Impressions: Service Date/Time: Friday, February 10, 2017 22:17 - CONCLUSION: Low probability pulmonary embolism. Candido Patton MD Head CT 02/10/17 0000 Signed Impressions: Service Date/Time: Friday, February 10, 2017 23:51 - CONCLUSION: Negative noncontrast CT brain. Candido Patton MD Wrist X-Ray 02/06/17 0000 Signed Impressions: Service Date/Time: Monday, February 06, 2017 12:50 - CONCLUSION: Minimally displaced distal radius and ulnar fractures. Armando Dodd MD Lumbar Puncture Fluoroscopy 02/01/17 0000 Signed Impressions: Service Date/Time: January 09:35 - CONCLUSION: Uncomplicated fluoroscopically guided lumbar puncture. CSF was clear. Nabeel Peralta MD Head Magnetic Resonance Angiography 01/27/17 0000 Signed Impressions: Service Date/Time: Friday, January 27, 2017 10:33 - CONCLUSION: No intracranial vascular abnormality is identified. There is no aneurysm visualized. Angelo Allen MD IVC Filter Placement X-Ray 01/25/17 Signed Impressions: Service Date/Time: January 10:29 - CONCLUSION: Uncomplicated inferior vena cava filter placement as above. Yung Fowler MD Thoracic Spine MRI 01/24/17 Signed Impressions: Service Date/Time: Tuesday, January 24, 2017 22:29 - CONCLUSION: 1. Mild degenerative spondylosis most prominently at T11-L1 with slight effacement of the anterior thecal sac and left lateral recess. No significant neural foraminal stenosis. 2. No acute fracture. Juan Bhakta MD Renal Ultrasound 01/23/17 Signed Impressions: Service Date/Time: Monday, January 23, 2017 08:53 - CONCLUSION: 1. Evidence of chronic parenchymal disease of both kidneys. No obstructive uropathy or other acute abnormality demonstrated. 2. Trace ascites, nonspecific. Angelo Garrido MD Lumbar Spine MRI 01/23/17 Signed Impressions: Service Date/Time: Monday, January 23, 2017 17:01 - CONCLUSION: 1. At L4-5 is a broad-based disc protrusion with severe central canal and lateral recess stenosis and flattening of the exiting right L4 nerve root. 2. L5-S1 there is a disc protrusion and moderate stenosis with flattening of the exiting L5 nerve roots bilaterally. 3. At L3-4 there is a moderate to severe central stenosis and lateral recess stenosis with mild foraminal stenosis. 4. No acute fracture or spondylolisthesis. Trace Holloway MD Lower Extremity Ultrasound 01/23/17 Signed Impressions: Service Date/Time: Monday, January 23, 2017 09:53 - CONCLUSION: Bilateral focal lower extremity DVT involving the posterior tibial veins. Angelo Garrido MD Cervical Spine MRI 01/23/17 Signed Impressions: Service Date/Time: Monday, January 23, 2017 17:01 - CONCLUSION: 1. Multilevel cervical spine degenerative changes as above. 2. Mild degrees of spinal stenosis at C3/C4-C6/C7. No cord compression or cord signal abnormality. 3. Age indeterminate left paracentral/foraminal disc protrusion at C6/C7. 4. Multilevel foraminal stenosis, most severe on the left at C6/C7. Please see individual levels above. 5. No fracture or subluxation of the cervical spine. Angelo Garrido MD Brain MRI 01/23/17 0000 Signed Impressions: Service Date/Time: Monday, January 23, 2017 17:01 - CONCLUSION: 1. No acute stroke or other acute intracranial abnormality demonstrated. 2. Moderate severity chronic white matter changes, nonspecific but most likely related to chronic small vessel disease. 3. Few scattered tiny lacunar infarcts of the brainstem. 4. Given the findings are not entirely specific, clinical evaluation for possible multiple sclerosis recommended. Angelo Garrido MD Knee X-Ray 01/22/[id number] Signed Impressions: Service Date/Time: Sunday, January 22, 2017 21:17 - CONCLUSION: 1. Evidence of moderate to large joint effusion. 2. No acute fracture or malalignment. 3. Mild 3 compartment osteoarthritic change. Benjamin Person MD Hip and Pelvis X-Ray [id number]/22/[id number] Signed Impressions: Service Date/Time: Sunday, January 22, 2017 21:10 - CONCLUSION: 1. Mild to moderate degenerative change of both hips with no acute fracture or malalignment. There is flattening and remodeling of the right humeral head. Benjamin Person MD Objective Remarks GENERAL: 62-year-old male, resting in bed, on mechanical ventilation via tracheostomy HEENT: Normocephalic. Atraumatic. Pupils equal, round, reactive. NECK: Tracheostomy in place. Obese. left IJ hemodialysis catheter clean dry and intact CHEST: on mechanical ventilation via tracheostomy, air entry decreased bilaterally at bases, persistent scattered rhonchi bilaterally, no wheezing CARDIOVASCULAR: S1-S2 regular, no gallop or murmur ABDOMEN distended. No rigidity. Umbilical hernia is reducible. No guarding. PEG tube in place : Positive scrotal edema MUSCULOSKELETAL: Pulses 2+. 1+ bilateral upper and lower extremity edema. Wound VAC on left upper extremity NEUROLOGICAL: Awake and alert, has spontaneous eye opening. Opens and closes eyes on command, on mechanical ventilation via tracheostomy.. Moves 4 limbs weakly to stimulation. Procedures IVC filter placement 01/25/2017 LP 01/26/2017 Date of Insertion: Mar 03, 2017 Line: Central Venous Catheter Side: Right Location: Internal, Jugular A/P Problem List: (1) Septic shock ICD Code: A41.9 - Sepsis, unspecified organism; R65.21 - Severe sepsis with septic shock Status: Acute (2) Acute respiratory failure ICD Code: J96.00 - Acute respiratory failure, unspecified whether with hypoxia or hypercapnia Status: Acute (3) Thrombophlebitis arm ICD Code: I80.8 - Phlebitis and thrombophlebitis of other sites (4) Aspiration pneumonia ICD Code: J69.0 - Pneumonitis due to inhalation of food and vomit Status: Acute (5) Atelectasis of left lung ICD Code: J98.11 - Atelectasis Status: Acute (6) Quadriparesis ICD Code: G82.50 - Quadriplegia, unspecified Status: Acute (7) DVT (deep venous thrombosis) ICD Code: I82.409 - Acute embolism and thrombosis of unspecified deep veins of unspecified lower extremity (8) Altered mental status ICD Code: R41.82 - Altered mental status, unspecified Status: Acute (9) CKD (chronic kidney disease) stage 3, GFR 30-59 ml/min ICD Code: N18.3 - Chronic kidney disease, stage 3 (moderate) Status: Chronic (10) Acute renal failure ICD Code: N17.9 - Acute kidney failure, unspecified Status: Acute (11) Diabetes mellitus ICD Code: E11.9 - Type 2 diabetes mellitus without complications Status: Chronic (12) Distal end of ulna fracture, closed ICD Code: S52.609A - Unspecified fracture of lower end of unspecified ulna, initial encounter for closed fracture Status: Acute (13) Gout ICD Code: M10.9 - Gout, unspecified Status: Chronic Assessment and Plan NEURO/PSYCH: Acute metabolic encephalopathy- persistent Quadriparesis secondary to suspected transverse myelitis Recurrent falls Pain secondary to retroperitoneal hematoma. Suspected transverse myelitis. Received methylprednisolone 250 mg IV every 6 hours 01/27-02/02, started back on hydrocortisone 02/21/17, initially tapering to 50 mg IV every 8 hours starting received 1 dose at 2100 prior to becoming hypotensive. weaning hydrocortisone taper and stopped 03/09. Resumed hydrocortisone 50mg IV Q6hrly on 03/14 as patient became hypotensive following intubation on 03/13 requiring levophed. Decrease hydrocortisone to 50 mg IV every 12 hourly on patient is off pressors for a few days. LP 01/26 and 02/01. CSF culture negative 01/26, 02/01 Oligoclonal bands negative. CSF/serum IgG index is not elevated. VDRL nonreactive. Cryptococcal antigen negative. Brain MRI 01/23 no acute stroke. Few scattered lacunar infarcts of the brainstem. Moderate chronic white matter changes. MRI cervical/thoracic spine- mild spinal stenosis C3/C4 to C6/C7. No cord compression. RPR negative Neurology has been following, Dr. Crenshaw. Repeat CT brain 02/10 - negative TitrateD off sedation following tracheostomy Continue PT/OT RESP: Acute hypoxemic respiratory failure Healthcare associated pneumonia/Aspiration Pneumonia Right-sided chest tube placed for pleural effusion. continue mechanical ventilation, vent bundle, C Pap and T piece trials as tolerated Albuterol/ipratropium aerosols every 6 hours with albuterol aerosols every 2 hours prn VQ scan 02/10 low probability for PE. CT chest 02/10 - left lower lobe collapse and consolidation. CT chest 02/27 revealed right greater than left pleural effusions. Extubated 02/23. Intubated 02/28. Extubated 03/11, Reintubated on 03/13. Right-sided chest tube placement 02/28 engineering illustrator, removed 03/05. Failed attempt to wean successfully due to volume overload and multiple organ failure. underwent perc tracheostomy 03/14. CV: Severe sepsis - resolved. Systolic heart failure likely chronic with ejection fraction 20-25% Hyperlipidemia History of hypertension Mild TR Sinus tachycardia Elevated troponin likely type II demand ischemia Restarted on Levophed on 03/09 for following intubation, titrated off after starting hydrocortisone. Started hydrocortisone stress dose on 03/14 (as patient has been on steroids and was just tapered off on 03/09.) Holding beta yani and amlodipine in light of hypotension. atorvastatin 10 mg by mouth daily for dyslipidemia. Troponin 0.[address]-T changes. 2-D echocardiogram 01/11 revealed EF 20-25%. Mild TR. Pulmonary arterial pressures were normal around 20 Troponin 6.55 on 03/02. Likely will need stress test of heart once stable. Cannot anticoagulate due to retroperitoneal hematoma at the present time Currently on furosemide 40 mg IV twice a day per nephrology. GI: Large right retroperitoneal hematoma Erosive esophagitis Adematous/hyperplastic colon polyps Severe acute protein calorie malnutrition Nausea/vomiting - resolved. Diarrhea Gastritis Diverticulosis Internal and external hemorrhoids Hiatal hernia Elevated lipase 02/27 CT chest/abdomen and pelvis - 9.4 x 7.5 renal and 16 x 12 cm right psoas muscle hematoma. Fluid around liver and spleen. Right-sided nephrolithiasis CTA abdomen 02/28 - possible blushing around iliac/lumbar vessels Discussed with IR. s/p attempted embolization CT abdomen and pelvis 02/10 atrophic left kidney. Bilateral inguinal hernias fat- containing. Nonobstructing 12 mm right kidney stone repeat CT abd/pelvis did not show evidence of obstruction. patient clinically has been having diarrhea (c. diff negative 02/19). also with nausea/vomiting of unclear etiology. EGD/Colonoscopy-02/22/17 showed gastritis esophagitis, hiatal hernia, diverticulosis and multiple polyps in descending colon and sigmoid which were snared biopsied. Biopsy pending Dr. Lewis consulted for intervention if needed for elevated IAP. will continue to check as needed Previously on on tube feeds with Nepro, held for trach. Will consult GI for PEG. Lansoprazole for GI prophylaxis FEN/RENAL: Acute kidney injury in the setting of Chronic kidney disease stage 3-4 History of uric acid kidney stones with prior stent BPH Nonfunctioning left kidney Acute intravascular volume overload Hypernatremia Hypophosphatemia Sloan placed due to urinary retention and worsening creatinine. Monitor intake and output q1hr. Monitor electrolytes. RIOS/SPEP negative. 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 Recommended nephrostomy tube if obstruction Nephrology consulted, hemodialysis per nephrology. Making urine. Due to acute illness holding tamsulosin 0.4 mg by mouth daily for BPH Free water 200 mL q4h for hypernatremia ICU electrolyte replacement protocol ID: Septic shock- resolved. Abscess and Suppurative thrombophlebitis left upper extremity MSSA bacteremia Klebsiella UTI ESBL positive Acute aspiration pneumonia/HCAP Previously treated with Bactrim, ertapenem, intermittent vancomycin, nafcillin Blood cultures 2, UA ESBL positive Klebsiella UTI Sputum 03/14 - Pseudomonas came back resistant to imipenem Repeat blood cultures 2 and sputum 03/08 pending. Urine negative. Switched from meropenem to ceftazidime on 03/19, vancomycin IV 1 dose given on 03/19. ID following-Dr. Edwards. HEME: Acute blood loss anemia DVT, bilateral posterior tibial vein, IVC filter Septic thrombophlebitis with occlusive thrombus mid cephalic and basilic vein side Received 10 PRBC, 14 FFP, 2 platelets, 1 cryo-02/28 Past 24 hours received 3 units PRBCs Serial hemoglobins every 6 hours Recheck coags Ultrasound 01/23/17 - Bilateral lower extremity with occlusive posterior tibial vein DVTs. Heparin was initially started for DVT but was placed on hold due to LP with suspected traumatic tap. Currently holding full anticoagulation with enoxaparin 100 mg IV twice a day due to anemia as of 02/26 IVC filter was placed 01/25/17. Ultrasound LUE 02/10 occlusive thrombus mid cephalic vein, basilic vein.s. Transfuse 3 units PRBCs 02/27 Transfuse 2 units PRBCs 03/01. transfused 1 unit PRBCs on 03/14 ENDO: Diabetes mellitus Hypoglycemia History of prior adrenal insufficiency with shock Gout EGD colonoscopy completed 02/22. gastritis and esophagitis, colon polyps Started Hydrocortisone 100 mg every 8 hours 02/21/17 (Recent high dose steroids use now hypotensive, hypoglycemic), steroids had been tapered off. Resumed stress dose steroids on 03/16 as patient back on Levophed for pressor support after intubation. Decrease hydrocortisone to 50 mg IV every 12 hourly on 03/21. Accu-Cheks to maintain euglycemia Novulin R every 4 hours. Increase Levemir from 30 units twice a day to 25 units twice a day for hyperglycemia which is probably worse since starting stress dose steroids. MSK: Right distal ulna fracture. Dr. Nathan with orthopedics has evaluated and recommended nonoperative management. Right wrist splint in place. PROPH: Lansoprazole 30 mg twice a day twice a day for stress ulcer prophylaxis. Has IVC filter. Therapeutic enoxaparin currently on hold for retroperitoneal hematoma ACCESS: right IJ CVL placed 03/03- to be discontinued 03/20. A left IJ hemodialysis catheter placed 03/01. Left femoral A line placed 03/14 - discontinued 03/19 Overall impression: Patient remains critically ill with respiratory failure requiring reintubation. Tracheostomy placed for comfort. Palliative care to assist with deciding goals of therapy. Prognosis poor. Problem Qualifiers (1) Aspiration pneumonia: (2) DVT (deep venous thrombosis): Qualified Codes: I82.443 - Acute embolism and thrombosis of tibial vein, bilateral (3) Acute renal failure: Qualified Codes: N17.9 - Acute kidney failure, unspecified (4) Diabetes mellitus: (5) Gout: Devin Puente MD Mar 22, 2017 13:20
--- NOTE | 2017-03-22 14:07 | HHI.NPPN ---
Subjective History of Present Illness 61-year-old with history of urinary stone Additional Remarks Patient had trach on vent Review of Systems General Constitutional: Fatigue Objective Data Data 03/22/17 03/23/17 19:00 07:00 Output Total 1000 ml Balance -1000 ml Hemodialysis 1000 ml Vital Signs Date Time Temp Pulse Resp B/P (MAP) Pulse Ox O2 Delivery O2 Flow Rate FiO2 03/22/17 13:07 100 40 03/22/17 13:07 40 03/22/17 10:00 78 03/22/17 08:00 97.2 68 17 143/77 (99) 97 03/22/17 08:00 68 03/22/17 08:00 40 03/22/17 07:42 100 40 03/22/17 07:00 16 03/22/17 06:00 72 03/22/17 04:09 99 40 03/22/17 04:00 40 03/22/17 04:00 76 03/22/17 04:00 99.2 76 22 163/63 (96) 100 03/22/17 02:00 68 03/22/17 00:26 99 40 03/22/17 00:00 98.8 64 16 115/64 (81) 99 03/22/17 00:00 64 03/22/17 00:00 40 03/21/17 22:00 64 03/21/17 21:55 99 40 03/21/17 20:00 99.3 74 22 130/77 (94) 94 03/21/17 20:00 74 03/21/17 20:00 40 03/21/17 19:21 97 40 03/21/17 19:16 35 03/21/17 18:00 70 03/21/17 16:00 74 03/21/17 16:00 98.9 74 21 158/81 (106) 97 03/21/17 16:00 40 03/21/17 14:25 95 T-piece 6.00 35 -: 03/21/17 0500 03/21/17 0500 Physical Exam General Appearance: Pale Eyes Eye Exam: Pupils Equal Throat Throat Exam: Oral Mucosa Mayo & Moist Neck Neck Exam: Neck Supple Pulmonary Resp Exam: Rhonchi, Decreased Bases, Diminished Breath Sounds Cardiology CV Exam: Normal Sinus Rhythm Gastrointestinal/Abdomen GI Exam: Non-Tender, Distended Extremeties Extremities Exam: Pitting Edema, Dependent Edema Neurologic Neuro Exam: Awake Assessment/Plan Problem List: (1) Acute renal failure ICD Codes: N17.9 - Acute kidney failure, unspecified Status: Acute Plan: Patient developed Hypotension,sepsis staph aureus respiratory failure and increase WBC. Had aspiration pneumonia, developed sepsis with ARF again creatinine declined slightly post hydration he also had retroperitoneal bleed Elevated intra abdominal pressures - improved now. 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 Patient dialysis done hemodialysis proceedings noted UF1 L as UOP increase Cr low K low replace may again comes off dialysis (2) CKD (chronic kidney disease) stage 3, GFR 30-59 ml/min ICD Codes: N18.3 - Chronic kidney disease, stage 3 (moderate) Status: Chronic Plan: Ultrasound revealed chronic kidney disease there is no kidney stones (3) Diabetes ICD Codes: E11.9 - Type 2 diabetes mellitus without complications Plan: Continue to monitor (4) Distal end of ulna fracture, closed ICD Codes: S52.609A - Unspecified fracture of lower end of unspecified ulna, initial encounter for closed fracture Status: Acute Plan: Orthopedic is following Problem Qualifiers (1) Acute renal failure: Qualified Codes: N17.9 - Acute kidney failure, unspecified Laura Liao MD Mar 22, 2017 14:07
--- NOTE | 2017-03-22 14:48 | HHI.IDPN ---
Subjective Subjective Remarks Patient is a 62-year-old male, admitted to the hospital for evaluation of pain in his right wrist. He gave a history of falling about a week ago and apparently had immediate pain in the right wrist. He did not seek any medical attention initially because reportedly he was very busy. He eventually presented, and he was found to have a distal ulnar fracture on plain films. He also had some redness and swelling. Orthopedics saw the patient, and was being treated conservatively with the splint. During this hospitalization also he started complaining of generalized weakness but more so in his lower extremity than his upper extremity. He had swelling in both lower extremity which revealed evidence of DVT in the posterior tibial veins. Neurology had seen the patient and he underwent lumbar puncture which apparently was traumatic. Patient was therefore not given anticoagulation because of the traumatic LP, and he underwent placement of an IVC filter on January 25. Patient had another lumbar puncture on February 01. He was felt to have transverse myelitis, and he was given high-dose IV Solu-Medrol from January 27 to February 02. There was apparently some improvement in his weakness. The imaging studies done for his weakness showed some spinal stenosis, and neurosurgery was consult that and recommended that there was no surgical intervention to be done. Patient has been stabilizing, but last night apparently deteriorated, and he ended up getting intubated, and had significant hypotension requiring pressors. There was also an ultrasound done of his left upper extremity which showed DVT, and there was evidence of superior 2 thrombophlebitis. Vascular surgery was consult to it and he had IND on his left upper extremity. Patient has had some fevers since yesterday. 2 blood cultures were done yesterday and they're now reported as growing gram-positive cocci in [place] in clusters. He is currently sedated and intubated. He is on Levophed and vasopressin. A central line was placed as well as a femoral a line. He apparently had an IV in his left upper extremity and that was removed yesterday. Patient also has history of chronic kidney disease, and nephrology evaluated the patient. He was just being monitored for his renal insufficiency. Infectious disease consultation has been requested to evaluate the patient. Notes reviewed Temps ok BP good, not on pressors Tolerating T-piece trials Awake and following some commands Having HD today Has good UO Creatinine improving S/P trach S/P PEG Sputum with Pseudomonas Reintubated 03/12 Antibiotics I attest that I obtained, updated or reviewed the home and current medications. Fortaz IV Vanco IV intermittent dosing Current Medications Medications (Trade) Dose Ordered Sig/Rosalia Route Start Time Stop Time Status Last Admin (NS Flush) 2 ml UNSCH PRN IV FLUSH 01/23/17 00:30 02/01/17 05:07 (NS Flush) 2 ml BID IV FLUSH 01/23/17 09:00 03/22/17 09:00 (Zofran Inj) 4 mg Q6H PRN IVP 01/23/17 00:30 02/26/17 17:23 (Narcan Inj) 0.4 mg UNSCH PRN IV 01/23/17 00:30 (Edna-Colace) 1 tab BID PO 01/23/17 09:00 Future Hold 02/24/17 20:31 (Dulcolax Supp) 10 mg DAILY PRN RECTAL 01/23/17 00:30 (Lipitor) 10 mg HS PO 01/24/17 21:00 Future hold 03/21/17 22:04 (Glucagon Inj) 1 mg UNSCH PRN OTHER 02/11/17 05:45 02/18/17 18:53 (Flomax) 0.4 mg Q12HR PO 02/17/17 15:00 Future Hold 02/26/17 08:49 (Lovenox Inj) 100 mg Q12H SQ 02/18/17 12:00 Future Hold 02/26/17 16:20 (Lactinex) 1 tab TID PO 02/19/17 13:00 03/22/17 13:57 (Apresoline Inj) 10 mg Q30M PRN IV PUSH 02/20/17 11:45 03/20/17 20:26 (D50w (Vial) Inj) 25 ml UNSCH PRN IV PUSH 02/20/17 12:45 Sodium Chloride 1,000 ml @ 20 mls/hr Q24H IV 02/22/17 13:00 03/22/17 13:00 (Questran Light Pkt) 4 gm Q12HR PO 02/25/17 21:00 Future Hold 02/27/17 10:32 (Aldactone) 25 mg DAILY PO 02/27/17 09:00 Future Hold (Reglan Inj) 5 mg Q8HR IV PUSH 02/26/17 22:00 03/22/17 05:40 (Peridex 0.12% Liq) 15 ml BID@08,20 MT 02/28/17 08:00 03/22/17 08:00 (Albuterol Neb) 2.5 mg Q2HR NEB PRN NEB 02/28/17 07:45 03/21/17 19:21 (NovoLIN R SUPPLEMENTAL SCALE) 1 Q4HR SQ 02/28/17 08:00 03/22/17 04:54 Sodium Chloride 1,000 ml @ 0 mls/hr Q0M PRN OTHER 03/01/17 11:19 03/17/17 08:43 Sodium Chloride 1,000 ml @ 200 mls/hr Q5H PRN IV 03/01/17 11:19 03/22/17 10:53 Sodium Chloride 1,000 ml @ 0 mls/hr Q0M PRN OTHER 03/01/17 11:19 (Mannitol Inj) 12.5 gm UNSCH PRN IV 03/01/17 11:30 03/08/17 17:27 Albumin Human 100 ml @ 60 mls/hr UNSCH PRN IV 03/01/17 11:30 03/15/17 09:05 (NS Flush) 5 ml UNSCH PRN IV FLUSH 03/01/17 11:30 (Heparin Inj) UNSCH PRN .XX 03/01/17 11:30 03/17/17 08:42 (Gentamicin (Dialysis) Inj) 20 mg UNSCH PRN OTHER 03/01/17 11:30 03/22/17 10:53 (Tylenol) 650 mg UNSCH PRN PO 03/01/17 11:30 (Nitrostat Sl) 0.4 mg UNSCH PRN SL 03/01/17 11:30 (Gelfoam 12 Mm/7 Mm Top) 1 foam UNSCH PRN TOP 03/01/17 11:30 (NS Flush) UNSCH PRN IV FLUSH 03/01/17 13:00 (Heparin Inj) UNSCH PRN IV FLUSH 03/01/17 13:00 (NS Flush) DAILY IV FLUSH 03/04/17 09:00 03/20/17 08:05 (NS Flush) UNSCH PRN IV FLUSH 03/03/17 18:45 (Roxicodone Intensol Liq) 10 mg Q4H PO 03/05/17 14:00 03/22/17 10:00 (Prevacid Odt) 30 mg BID NG 03/07/17 21:00 03/22/17 09:00 (Tylenol 650 Mg/ 20 ml Liq) 650 mg Q6H PRN PO 03/09/17 10:15 03/14/17 05:24 (Lasix Inj) 40 mg BID@09,18 IV PUSH 03/10/17 18:00 03/21/17 19:40 (Trandate Inj) 20 mg Q4H PRN IV 03/12/17 04:30 03/17/17 12:25 (Tenormin) 25 mg Q12HR PO 03/12/17 10:00 03/22/17 09:00 Phenylephrine HCl 160 mg/Dextrose 500 ml @ 7.5 mls/hr TITRATE PRN IV 03/12/17 10:45 (Brethine Inj) 1 mg UNSCH PRN SQ 03/12/17 10:45 Midazolam HCl 100 ml @ 2 mls/hr TITRATE PRN IV 03/13/17 01:00 03/14/17 09:21 Fentanyl Citrate 250 ml @ 5 mls/hr TITRATE PRN IV 03/13/17 01:00 03/16/17 07:41 Norepinephrine Bitartrate 16 mg/ Sodium Chloride 250 ml @ 1.87 mls/hr TITRATE PRN IV 03/13/17 10:45 03/16/17 07:45 (SoluCORTEF INJ) 50 mg Q6HR IV PUSH 03/14/17 18:00 03/22/17 13:56 (Epogen Inj) 10,000 units UNSCH PRN IV PUSH 03/17/17 11:30 03/22/17 10:52 (Levemir Inj) 25 units BID SQ 03/19/17 09:00 03/21/17 22:07 Ceftazidime 2000 mg/Sodium Chloride 100 ml @ 200 mls/hr Q12H IV 03/19/17 13:00 03/22/17 13:57 Vancomycin HCl 1000 mg/Sodium Chloride 250 ml @ 250 mls/hr SPICE GRINDER IV 03/21/17 09:15 03/24/17 09:14 Potassium Chloride 100 ml @ 50 mls/hr Q2H PRN IV 03/21/17 22:45 Potassium Chloride 100 ml @ 50 mls/hr Q2H PRN IV 03/21/17 22:45 03/22/17 06:00 (K-Lyte Cl Eff) 50 meq UNSCH PRN PO 03/21/17 22:45 Potassium Chloride 100 ml @ 25 mls/hr UNSCH PRN IV 03/21/17 22:45 Potassium Chloride 100 ml @ 50 mls/hr Q2H PRN IV 03/21/17 22:45 Magnesium Sulfate 4 gm/Sodium Chloride 100 ml @ 50 mls/hr UNSCH PRN IV 03/21/17 22:45 (Mag-Ox) 800 mg UNSCH PRN PO 03/21/17 22:45 Magnesium Sulfate 2 gm/Sodium Chloride 100 ml @ 50 mls/hr UNSCH PRN IV 03/21/17 22:45 (K-Phos) 2,000 mg Q4H PRN PO 03/21/17 22:45 Sodium Phosphate 30 mmol/Sodium Chloride 250 ml @ 42 mls/hr UNSCH PRN IV 03/21/17 22:45 (K-Phos) 2,000 mg UNSCH PRN PO/TUBE 03/21/17 22:45 Potassium Phosphate 30 mmol/ Sodium Chloride 260 ml @ 42 mls/hr UNSCH PRN IV 03/21/17 22:45 Vancomycin HCl 1500 mg/Sodium Chloride 515 ml @ 257.5 mls/ hr ONCE ONCE IV 03/22/17 15:00 03/22/17 16:59 Lines KATHLEEN haro Past Medical History Reviewed Allergies: Coded Allergies: levofloxacin (Verified Allergy, Severe, 01/22/17) Objective . Vital Signs Date Time Temp Pulse Resp B/P (MAP) Pulse Ox O2 Delivery O2 Flow Rate FiO2 03/22/17 14:15 99 T-piece 6.00 35 03/22/17 13:07 100 40 03/22/17 13:07 40 03/22/17 10:00 78 03/22/17 08:00 97.2 68 17 143/77 (99) 97 03/22/17 08:00 68 03/22/17 08:00 40 03/22/17 07:42 100 40 03/22/17 07:00 16 03/22/17 06:00 72 03/22/17 04:09 99 40 03/22/17 04:00 40 03/22/17 04:00 76 03/22/17 04:00 99.2 76 22 163/63 (96) 100 03/22/17 02:00 68 03/22/17 00:26 99 40 03/22/17 00:00 98.8 64 16 115/64 (81) 99 03/22/17 00:00 64 03/22/17 00:00 40 03/21/17 22:00 64 03/21/17 21:55 99 40 03/21/17 20:00 99.3 74 22 130/77 (94) 94 03/21/17 20:00 74 03/21/17 20:00 40 03/21/17 19:21 97 40 03/21/17 19:16 35 03/21/17 18:00 70 03/21/17 16:00 74 03/21/17 16:00 98.9 74 21 158/81 (106) 97 03/21/17 16:00 40 03/22/17 03/22/17 03/23/17 15:00 23:00 07:00 Output Total 1000 ml Balance -1000 ml Hemodialysis 1000 ml . Laboratory Tests Test 03/21/17 05:00 White Blood Count 19.0 TH/MM3 Red Blood Count 3.35 MIL/MM3 Hemoglobin 9.6 GM/DL Hematocrit 29.3 % Mean Corpuscular Volume 87.5 FL Mean Corpuscular Hemoglobin 28.7 PG Mean Corpuscular Hemoglobin Concent 32.8 % Red Cell Distribution Width 15.6 % Platelet Count 340 TH/MM3 Mean Platelet Volume 9.5 FL Laboratory Tests Test 03/20/17 16:02 03/21/17 05:00 03/21/17 23:09 Potassium Level 2.9 MEQ/L 3.1 MEQ/L Phosphorus Level 1.6 MG/DL 3.8 MG/DL 4.2 MG/DL Blood Urea Nitrogen 80 MG/DL Creatinine 1.66 MG/DL Random Glucose 171 MG/DL Calcium Level 7.8 MG/DL Sodium Level 146 MEQ/L Chloride Level 108 MEQ/L Carbon Dioxide Level 25.4 MEQ/L Anion Gap 13 MEQ/L Estimat Glomerular Filtration Rate 42 ML/MIN Imaging Chest X-Ray 03/14/17 0000 Signed Impressions: Service Date/Time: Tuesday, March 14, 2017 13:41 - CONCLUSION: 1. Tracheostomy in good position. 2. Left lower lung infiltrates and left pleural effusion. Candido Patton MD Aortography 02/28/17 0000 Signed Impressions: Service Date/Time: Tuesday, February 28, 2017 08:01 - CONCLUSION: 1. Active hemorrhage from distal right lateral sacral and iliolumbar branches successfully coil and Gelfoam embolized, as above. Juan Bhakta MD Abdomen/Pelvis CT 02/28/17 0000 Signed Impressions: Service Date/Time: Tuesday, February 28, 2017 06:51 - CONCLUSION: 1. The right retroperitoneal hematoma has increased in size, as above. There are 2 serpiginous arterially enhancing structures visualized, one in the right psoas muscle and another extending into the hematoma at the right iliac fossa. These could represent sites of continued active bleeding. 2. Stable moderate size left and small right pleural effusion with associated compressive atelectasis. 3. Stable small volume of free fluid in the abdomen and pelvis. There is also anasarca. The findings concerning the retroperitoneal hematoma were discussed with Dr. Aguiar via telephone at approximately 7: 10 AM on 02/28/2017. Angelo Allen MD Chest CT 02/27/17 0000 Signed Impressions: Service Date/Time: Monday, February 27, 2017 18:12 - CONCLUSION: 1. Bilateral pleural effusions with bibasilar atelectasis, left greater than right. Tom Sanchez MD Abdomen X-Ray 02/26/17 0000 Signed Impressions: Service Date/Time: Sunday, February 26, 2017 14:52 - CONCLUSION: 1. Nonobstructive bowel gas pattern. Juan Bhakta MD Upper Extremity Ultrasound 02/10/17 0000 Signed Impressions: Service Date/Time: Friday, February 10, 2017 18:46 - CONCLUSION: Occlusive thrombus in the cephalic and basilic veins. Benjamin Person MD Lung Scan- Nuclear Medicine 02/10/17 0000 Signed Impressions: Service Date/Time: Friday, February 10, 2017 22:17 - CONCLUSION: Low probability pulmonary embolism. Candido Patton MD Head CT 02/10/17 0000 Signed Impressions: Service Date/Time: Friday, February 10, 2017 23:51 - CONCLUSION: Negative noncontrast CT brain. Candido Patton MD Wrist X-Ray 02/06/17 Signed Impressions: Service Date/Time: Monday, February 06, 2017 12:50 - CONCLUSION: Minimally displaced distal radius and ulnar fractures. Armando Dodd MD Lumbar Puncture Fluoroscopy 02/01/17 0000 Signed Impressions: Service Date/Time: January 09:35 - CONCLUSION: Uncomplicated fluoroscopically guided lumbar puncture. CSF was clear. Nabeel Peralta MD Head Magnetic Resonance Angiography 01/27/17 Signed Impressions: Service Date/Time: Friday, January 27, 2017 10:33 - CONCLUSION: No intracranial vascular abnormality is identified. There is no aneurysm visualized. Angelo Allen MD IVC Filter Placement X-Ray 01/25/17 Signed Impressions: Service Date/Time: January 10:29 - CONCLUSION: Uncomplicated inferior vena cava filter placement as above. Yung Fowler MD Thoracic Spine MRI 01/24/17 Signed Impressions: Service Date/Time: Tuesday, January 24, 2017 22:29 - CONCLUSION: 1. Mild degenerative spondylosis most prominently at T11-L1 with slight effacement of the anterior thecal sac and left lateral recess. No significant neural foraminal stenosis. 2. No acute fracture. Juan Bhakta MD Renal Ultrasound 01/23/17 Signed Impressions: Service Date/Time: Monday, January 23, 2017 08:53 - CONCLUSION: 1. Evidence of chronic parenchymal disease of both kidneys. No obstructive uropathy or other acute abnormality demonstrated. 2. Trace ascites, nonspecific. Angelo Garrido MD Lumbar Spine MRI 01/23/17 Signed Impressions: Service Date/Time: Monday, January 23, 2017 17:01 - CONCLUSION: 1. At L4-5 is a broad-based disc protrusion with severe central canal and lateral recess stenosis and flattening of the exiting right L4 nerve root. 2. L5-S1 there is a disc protrusion and moderate stenosis with flattening of the exiting L5 nerve roots bilaterally. 3. At L3-4 there is a moderate to severe central stenosis and lateral recess stenosis with mild foraminal stenosis. 4. No acute fracture or spondylolisthesis. Trace Holloway MD Lower Extremity Ultrasound 01/23/17 Signed Impressions: Service Date/Time: Monday, January 23, 2017 09:53 - CONCLUSION: Bilateral focal lower extremity DVT involving the posterior tibial veins. Angelo Garrido MD Cervical Spine MRI 01/23/17 Signed Impressions: Service Date/Time: Monday, January 23, 2017 17:01 - CONCLUSION: 1. Multilevel cervical spine degenerative changes as above. 2. Mild degrees of spinal stenosis at C3/C4-C6/C7. No cord compression or cord signal abnormality. 3. Age indeterminate left paracentral/foraminal disc protrusion at C6/C7. 4. Multilevel foraminal stenosis, most severe on the left at C6/C7. Please see individual levels above. 5. No fracture or subluxation of the cervical spine. Angelo Garrido MD Brain MRI 01/23/17 Signed Impressions: Service Date/Time: Monday, January 23, 2017 17:01 - CONCLUSION: 1. No acute stroke or other acute intracranial abnormality demonstrated. 2. Moderate severity chronic white matter changes, nonspecific but most likely related to chronic small vessel disease. 3. Few scattered tiny lacunar infarcts of the brainstem. 4. Given the findings are not entirely specific, clinical evaluation for possible multiple sclerosis recommended. Angelo Garrido MD Knee X-Ray [id number] Signed Impressions: Service Date/Time: Sunday, January 22, 2017 21:17 - CONCLUSION: 1. Evidence of moderate to large joint effusion. 2. No acute fracture or malalignment. 3. Mild 3 compartment osteoarthritic change. Benjamin Person MD Hip and Pelvis X-Ray [id number] Signed Impressions: Service Date/Time: Sunday, January 22, 2017 21:10 - CONCLUSION: 1. Mild to moderate degenerative change of both hips with no acute fracture or malalignment. There is flattening and remodeling of the right humeral head. Benjamin Person MD Physical Exam GENERAL: Awake and following commands, NAD, on the vent, having HD SKIN: Cool and dry. No generalized rash. Still edematous EYES: [place] conjunctiva. No petechia or hemorrhage. EARS, NOSE AND THROAT: Nose without bleeding or purulent nasal discharge. Dry oral mucosa NECK: Trachea midline. Supple and no meningeal signs. Trach site ok CARDIOVASCULAR: Regular rate and rhythm. Soft heart sounds. No murmurs RESPIRATORY: Coarse BS bilaterally, decreased at bases. ABDOMEN: Soft, mildly distended, PEG site ok. Mild tenderness, no guarding EXTREMITIES: No clubbing, cyanosis. Edema feet better; edema hands better : very swollen scrotum, has a lot of sediment in his cath tubing NEUROLOGICAL: awake and following commands PSYCHIATRIC: Calm and cooperative LINE: Lines with no evidence of infection Assessment & Plan Remarks IMPRESSION Fevers - better - had Kleb and Sten mal in sputum, S/P Rx - now with Pseudomonas - PSAE R to Imipenem HCAP, Pseudomonas now - previously Kleb and Sten mal, S/P Rx with Bactrim Shock, resolved Large R retroperitoneal bleed, S/P multiple transfusions and S/P coiling of bleeders Elevated amylase and lipase, better Anemia, due to bleed, retroperitoneal MSSA sepsis, due to suppurative thrombophlebitis LUE, S/P I and D and excision of portion of cephalic vein - needs Rx until Mar 25 Respiratory failure, has had several intubations - reintubated again 02/28, extubated 03/11 - reintubated again - S/P trach 03/14 Recent Rx 7 days high dose solumedrol for transverse myelitis Wu LE DVT has IVC filter placed 01/25 - ?hypercoagulable state Chronic kidney disease, worsening creatinine - shock and compression of ureter by hematoma Known DM, HTN Gouty tophi both hands and feet Diarrhea, C diff negative UTI, GNR - repeat UA better, but a lot of sediment in the urine Thrombocytopenia, no evidence of DIC, ?meds, ?infection, ?due to bleed - improving RECOMMENDATION Continue Fortaz IV - plan 7 days Give dose of Vanco today Follow temps Monitor progress Weaning per CCM Irene Edwards MD Mar 22, 2017 14:48
[2017-03-22] MEDS ORDERED: VANCOMYCIN INJ 1,500 MG in SODIUM CHLORID 0.9% 500 ML INJ 500 ML IV ONE (15:00)
[2017-03-22] MEDS: ATORVASTATIN 10 MG TAB PO SCH (20:50)
[2017-03-22] MEDS: hydrALAZINE HCL 20 MG/ML VIAL IV PUSH PRN (22:06)
[2017-03-23] VITALS (15 sets, daily range): BP systolic 148–175; BP diastolic 72–98; PULSE 66–87; RESP 15–30; TEMP 97.7–99; O2SAT 97–100
[2017-03-23] MEDS: HYDROCORTISONE SOD SUCCINATE 100 MG VIAL IV PUSH SCH ×4 (00:44→17:48)
[2017-03-23] MEDS: POTASSIUM CHLOR 20 MEQ PREMIX 100 ML IV PRN ×4 (00:44→09:48)
[2017-03-23] MEDS: cefTAZidime INJ 2,000 MG in SODIUM CHLORIDE 0.9% INJ 100 ML IV SCH ×2 (01:03→12:55)
[2017-03-23] MEDS: oxyCODONE HCL ORAL CONC 5 MG/0.25 ML SYRINGE PO SCH ×6 (02:00→22:14)
[2017-03-23] MEDS: INSULIN NovoLIN REGULAR SUPPLEMENTAL SCALE SQ SCH ×6 (04:35→20:00)
[2017-03-23 05:31] LABS: AUTOMATED NEUTROPHIL # 17.2 TH/MM3 (1.8-7.7); BASOPHIL % 0.1 % (0.0-2.0); EOSINOPHIL # 0.1 TH/MM3 (0-0.4); EOSINOPHIL % 0.3 % (0.0-4.0); HEMATOCRIT 34.7 % (39.0-51.0); LYMPHOCYTE # 0.8 TH/MM3 (1.0-4.8); MEAN CELL VOLUME 90.6 FL (80.0-100.0); MEAN CORPUSCULAR HEMOGLOBIN 28.4 PG (27.0-34.0); MEAN CORPUSCULAR HGB CONC 31.3 % (32.0-36.0); MONO % 8.7 % (0.0-8.0); NEUT % 86.9 % (16.0-70.0); PLATELET COUNT 377 TH/MM3 (150-450); RED BLOOD COUNT 3.83 MIL/MM3 (4.50-5.90); RED CELL DISTRIBUTION WIDTH 16.5 % (11.6-17.2); WHITE BLOOD COUNT 19.8 TH/MM3 (4.0-11.0)
[2017-03-23 05:32] LABS: HEMO FLAGS AUTO DIFF
[2017-03-23 05:48] LABS: BICARBONATE 27.3 MEQ/L (21.0-32.0); CALCIUM-PROTEIN CORRECTED 8.4 MG/DL (8.5-10.1); POTASSIUM 3.2 MEQ/L (3.5-5.1); TOTAL BILIRUBIN ADULT 0.6 MG/DL (0.2-1.0)
[2017-03-23] MEDS: METOCLOPRAMIDE HCL 10 MG/2 ML VIAL IV PUSH SCH ×3 (05:54→20:45)
[2017-03-23 07:34] LABS: BANDS 8 % (0-6); CORRECTED NUCLEATED RBC 2 /100 WBC (0-0); METAMYELOCYTES 8 % (0-1); MYELOCYTES 1 % (0-0); NEUTROPHIL # MANUAL DIFF 18.4 TH/MM3 (1.8-7.7); POLYS (SEG NEUTROPHILS) 76 % (16-70); WBC DIFF SAMPLE 100
[2017-03-23 07:37] LABS: PLATELET ESTIMATE SMEAR NORMAL (NORMAL); PLATELET MORPHOLOGY NORMAL (NORMAL); SCAN/DIFF FINAL DIFF MANUAL
[2017-03-23] MEDS: CHLORHEXIDINE 0.12% (ORAL KIT) 15 ML CUP MT SCH ×2 (08:41→20:45)
[2017-03-23] MEDS: SODIUM CHLORIDE 0.9% FLUSH 10 ML FLUSH IV FLUSH SCH ×3 (08:42→20:45)
[2017-03-23] MEDS: FUROSEMIDE 40 MG/4 ML VIAL IV PUSH SCH ×2 (09:47→17:47)
[2017-03-23] MEDS: LACTOBACILLUS ACIDOPHILUS TAB PO SCH ×3 (09:47→17:48)
[2017-03-23] MEDS: LANSOPRAZOLE SOLUTAB 30 MG TAB NG SCH ×2 (09:47→20:31)
[2017-03-23] MEDS: ATENOLOL 25 MG TAB PO SCH ×2 (09:47→20:45)
[2017-03-23] MEDS: INSULIN DETEMIR 100 UNITS/ML VIAL SQ SCH ×2 (09:48→22:13)
[2017-03-23] MEDS: SODIUM CHLOR 0.9% 1000 ML INJ 1,000 ML IV SCH (12:55)
--- NOTE | 2017-03-23 13:49 | HHI.CCPN ---
Subjective Remarks/Hospital Course Date of admission: 01/22 Date of critical care medicine consult 02/10 due to acute hypoxemic respiratory failure requiring emergent intubation 62-year-old male with a past medical history of hypertension, hyperlipidemia, diabetes mellitus, gout, uric acid kidney stones, kidney disease of unknown stage who originally presented to [facility] emergency department on 01/22 after a fall in which he sustained a right distal ulna fracture. He had been experiencing a gradual primarily lower extremity weakness as well as upper extremity weakness that was progressive. Neurology consult was obtained. MRI revealed no acute stroke. He had multifocal white matter changes. Tiny lacunar infarcts of the brainstem. Lumbar MRI report states L4-L5 disc protrusion with cetnral canal stenosis. Dr. Blackwell evaluated and states no cord compression on MRI C/T spine and recommended nonoperative management. Symptoms were felt to be consistent with transverse myelitis and he underwent Solumedrol 250 mg IV q6 hours 01/27-02/02. He also was found to have occlusive thrombus in the bilateral posterior tibial veins. Heparin was being avoided because he had traumatic lumbar puncture on 01/26 and 02/01. IVC filter was placed 01/25. He was undergoing physical therapy, reportedly making some improvements with plan to eventually discharged home with his son (max assist standing, and bed to chair per PT note). Apparently he had some vomiting the evening of 02/09 and additional vomiting on 02/10. He had a fever 102.8 on 02/09. Last recorded bowel movement was 02/03. Tonight he had acute onset of severe hypoxemia and respiratory distress. [facility] called and he was brought emergently to [facility] where his sats were 64% on 100% nonrebreather with mean arterial pressure 44. He was emergently intubated, CVL and art line placed. He is in septic shock. SUBJ: 02/11: Patient remains intubated sedated, critically ill. FiO2 reduced to 80% after increasing PEEP to 12. In severe septic shock Levophed at 16 mcg/m, vasopressin at 0.04 international units. D/W vascular surgery Dr. Enciso. He performed bedside Left upper extremity incision and debridement and excision of septic cephalic vein. 02/12: Remains intubated sedated profoundly septic, in shock on vasopressin and 7 mcg/min Levophed. FiO2 has improved to 45%, WBC count remains elevated with 20 ,000 white count significant left shift. Slight improvement in creatinine 2.9 urine output 750 ml 24 hours. 2-D echo shows LV ejection fraction 20-25%, no vegetation reported. Blood cultures 4 staph aureus. Wound culture pending 02/13: Remains critically ill but stable to improving. WBC count is down to 16, creatinine improving to 2.36. Off all pressors. Urine output also improving. 1.5L in 24 hours 02/14: Extubated 02/13. Tolerating well. WBC now down to 12.8. Creat improving 2.3 to 2. UO 3.4L. remains off all pressors. Was started on Precedex yesterday night for agitation, currently on 0.5 g per KG per hour. Chest x-ray shows left more than right air space disease 02/20/17 Re consult: 62-year-old male who was originally admitted for lower extremity weakness and found to have what was thought to be possible transverse myelitis. His hospital course his included a healthcare associated pneumonia, septic thrombophlebitis, DVT. He was most recently in the hospital floor where he had significant nausea and vomiting and diarrhea. His C. difficile test was recently negative. However, he has experienced worsening acute on chronic renal failure, hypotension, tachycardia, and severe hypoxemia. He did have a bout of vomiting earlier today, and his hospitalist attending suspects that he may have aspirated. He arrives by rapid response to the ICU with a nonrebreather in place in severe respiratory distress with SPO2 of 85%. I emergently intubate the patient, see separate procedure note for details. At this point the patient was hypotensive and tachycardic. He does have a history of an EF of 20%, however clinically he appears in florid septic shock. I placed central line and arterial line started vasopressors and gentle IV fluid resuscitation with 1 L of LR. Patient today was empirically broadened to vancomycin and Zosyn from his oxacillin which was initially treating MSSA bacteremia. He is recultured. Critical-care medicine is consulted to evaluate and manage his worsening multiorgan system failure and decompensated septic shock 02/21: Patient remains intubated sedated. Becomes anxious tachypnea on sedation lightening. Chest x-ray shows mild left lower lobe infiltrate. WBC count is slightly improved today from 23.2 t0 21. C Diff negative. UO adequate, creat slightly worsening. 1.57 today 02/22: Remains intubated sedated tolerated CPAP yesterday, plan is for EGD/ Colonscopy. WBC count back to normal. UO adequate. Creat stable 02/23: Tolerating CPAP trials following commands. Will do a spontaneous breathing trials. Status post EGD colonoscopy yesterday -Gastritis, esophagitis. Diverticulosis and multiple polyps. Urine output adequate but creatinine increasing to 1.7 with patient requiring multiple straight catheterization. We'll reinsert Sloan. 02/24: Breathing comfortably 24 hours after extubation. Protects airway well. 02/25: Excoriate bottom, will place rectal FMS. Start pureed diet. 02/26: Afebrile. Complaining of nausea and vomiting this afternoon. Increased stool output. Continue potassium replacement today. 02/27: 10 PM overnight, acutely hypotensive. Received 3 units PRBCs. Antibiotic coverage broadened to piperacillin/tazobactam, cortisol and 1 dose of vancomycin. Oxacillin drip currently on hold. Symptomatically, patient continues to vague abdominal pain/nausea vomiting which is unchanged for the past several days. Lipase elevated yesterday. Lactic acid normal. Troponin normal. Urinary retention after removal of Sloan. Straight catheter 1300. Cc 02/28: New diagnosis large retroperitoneal hematoma. Received 10 PRBC, 14 FFP, 2 platelets, 1 cryo-, 6 g calcium chloride, 2 is magnesium sulfate and 4 mg Bumex. CTA abdomen revealed possible arterial bleeds iliac, lumbar. Patient is currently on norepinephrine and epinephrine drips and possible need right nephrostomy tube placement due to large hematoma compressing ureter. Intra-abdominal bladder pressures are currently 13 03/01: Afebrile. Received 25 g albumin and 1 unit PRBCs overnight. Intra- abdominal bladder pressures currently 19. Currently on 3 micrograms per minute of norepinephrine. [id number]-[id number] 1 out of 4 on 4 mics grams per kilogram per minute of cisatracurium. 03/02: Slightly hypothermic overnight. Hemoglobin appears to have stabilized. Troponin bump overnight likely secondary to demand ischemia from hypotension. Hemodynamically stable off all vasopressors. 03/03: Received 1 PRBCs overnight. 3 units currently. Off all vasopressors. Likely rebleeding. Stool is dark. 03/04: Remains unstable. Ventilator dependent. 03/05: afebrile. hgb stable. 03/06: bumex drip started overnight. good uop after bumex initiated. still grossly volume overloaded. Cr downtrending. more awake with transition to propofol. still too volume overloaded to tolerate extubation. hgb stable. 03/07: Afebrile. Tolerating tube feeds at goal with Nepro. Positive BM. On low-dose fentanyl and propofol drips. Potassium currently being replaced. 03/08: Eyes will open on ventilator. Afebrile. Tolerating tube feeding. Failed PSV trial yesterday due to apnea. 03/09: Following commands. Tmax 101. Tolerating tube feeding. One hour PSV trial yesterday. Currently tolerating well so far today 1.5 hours 03/10: Low-grade temperatures. Tolerating PSV trial 10 hours yesterday. Currently at 5/5 at 35%. We'll probably attempt extubation a.m. after hemodialysis. 03/11: Extubated currently in 4 L nasal cannula. Thick secretions thick clear with cough. Currently afebrile. Tolerating diet previously. 03/12: Sleepy this morning but arouses. Following commands. Refusing diet at the present time. On 2 L nasal cannula. 03/13: Patient reintubated last night for worsening respiratory status. Currently sedated on mechanical ventilation. Became hypotensive following intubation and is on Levophed 20 mics per minute. 03/14: Sedated, orally intubated on mech vent at the time of my evaluation this AM, subsequently underwent perc trach placement. Remains on levophed for pressor support. Transfused 1 unit PRBCs today. Persisten 03/15: Trach site clean, dry. CXR with bilateral basilar infiltrates. 03/16: Pulmonary congestion persists. Clinical condition not improving. Prognosis becoming increasingly bleak. 03/17: Glucose intolerance worse. No improvement in neurological function. 03/18: Remains on mechanical ventilation via tracheostomy. Off pressors now. Neurologic status remains poor. 03/19: Drowsy, encephalopathic, arousable. On mechanical ventilation via tracheostomy. Levemir increased for hyperglycemia today. Remains off pressors 03/20: More awake, moves both upper extremities. On mechanical ventilation via tracheostomy. Daily C Pap trials ongoing. 03/21: Awake and alert. On mechanical ventilation via tracheostomy. Opens and closes eyes on command. 03/22: Awake and alert. Tolerated T PIECE for 7 hours yesterday. Dialyzed today. Subjective 03/23: Currently on T piece trial. Status post dialysis yesterday on 3 L. Awake and alert. Wants to eat. Objective Vital Signs Date Time Temp Pulse Resp B/P (MAP) Pulse Ox O2 Delivery O2 Flow Rate FiO2 03/23/17 12:00 98.8 85 30 175/98 (123) 98 03/23/17 11:19 T-piece 5.00 35 Intake and Output 03/23/17 03/23/17 03/24/17 08:00 16:00 00:00 Intake Total 1221 ml Output Total 1252 ml Balance -31 ml Result Diagram: 03/23/17 0419 03/23/17 0419 Other Results Microbiology Date/Time Source Procedure Growth Status 03/08/17 19:49 Blood Peripheral Aerobic Blood Culture - Final NO GROWTH IN 5 DAYS Complete 03/08/17 19:49 Blood Peripheral Anaerobic Blood Culture - Final NO GROWTH IN 5 DAYS Complete 02/01/17 09:55 Cerebral Spinal Fluid Lumbar Puncture Fungal Smear - Final NO FUNGAL ELEMENTS SEEN. Complete 02/01/17 09:55 Cerebral Spinal Fluid Lumbar Puncture Fungal Culture - Final NO GROWTH IN 4 WEEKS Complete 02/17/17 05:55 Stool Stool Stool Occult Blood (GREGORY) - Final HEMOCCULT POSITIVE Complete 03/13/17 09:20 Sputum Endotracheal Gram Stain - Final Complete 03/13/17 09:20 Sputum Culture - Final Pseudomonas Aeruginosa Complete 02/27/17 08:32 Urine Catheterized Urine Urine Culture - Final Klebsiella Pneumoniae Esbl Pos Complete 02/11/17 09:10 Abscess Arm Acid Fast Stain - Final NO ACID FAST BACILLI SEEN Resulted 02/11/17 09:10 Abscess Arm Mycobacterial Culture - Preliminary NO GROWTH IN 5 WEEKS Resulted Imaging Last Impressions Chest X-Ray 03/14/17 0000 Signed Impressions: Service Date/Time: Tuesday, March 14, 2017 13:41 - CONCLUSION: 1. Tracheostomy in good position. 2. Left lower lung infiltrates and left pleural effusion. Candido Patton MD Aortography 02/28/17 0000 Signed Impressions: Service Date/Time: Tuesday, February 28, 2017 08:01 - CONCLUSION: 1. Active hemorrhage from distal right lateral sacral and iliolumbar branches successfully coil and Gelfoam embolized, as above. Juan Bhakta MD Abdomen/Pelvis CT 02/28/17 0000 Signed Impressions: Service Date/Time: Tuesday, February 28, 2017 06:51 - CONCLUSION: 1. The right retroperitoneal hematoma has increased in size, as above. There are 2 serpiginous arterially enhancing structures visualized, one in the right psoas muscle and another extending into the hematoma at the right iliac fossa. These could represent sites of continued active bleeding. 2. Stable moderate size left and small right pleural effusion with associated compressive atelectasis. 3. Stable small volume of free fluid in the abdomen and pelvis. There is also anasarca. The findings concerning the retroperitoneal hematoma were discussed with Dr. Aguiar via telephone at approximately 7: 10 AM on 02/28/2017. Angelo Allen MD Chest CT 02/27/17 0000 Signed Impressions: Service Date/Time: Monday, February 27, 2017 18:12 - CONCLUSION: 1. Bilateral pleural effusions with bibasilar atelectasis, left greater than right. Tom Sanchez MD Abdomen X-Ray 02/26/17 0000 Signed Impressions: Service Date/Time: Sunday, February 26, 2017 14:52 - CONCLUSION: 1. Nonobstructive bowel gas pattern. Juan Bhakta MD Upper Extremity Ultrasound 02/10/17 0000 Signed Impressions: Service Date/Time: Friday, February 10, 2017 18:46 - CONCLUSION: Occlusive thrombus in the cephalic and basilic veins. Benjamin Person MD Lung Scan- Nuclear Medicine 02/10/17 0000 Signed Impressions: Service Date/Time: Friday, February 10, 2017 22:17 - CONCLUSION: Low probability pulmonary embolism. Candido Patton MD Head CT 02/10/17 0000 Signed Impressions: Service Date/Time: Friday, February 10, 2017 23:51 - CONCLUSION: Negative noncontrast CT brain. Candido Patton MD Wrist X-Ray 02/06/17 0000 Signed Impressions: Service Date/Time: Monday, February 06, 2017 12:50 - CONCLUSION: Minimally displaced distal radius and ulnar fractures. Armando Dodd MD Lumbar Puncture Fluoroscopy 02/01/17 0000 Signed Impressions: Service Date/Time: January 09:35 - CONCLUSION: Uncomplicated fluoroscopically guided lumbar puncture. CSF was clear. Nabeel Peralta MD Head Magnetic Resonance Angiography 01/27/17 Signed Impressions: Service Date/Time: Friday, January 27, 2017 10:33 - CONCLUSION: No intracranial vascular abnormality is identified. There is no aneurysm visualized. Angelo Allen MD IVC Filter Placement X-Ray 01/25/17 Signed Impressions: Service Date/Time: January 10:29 - CONCLUSION: Uncomplicated inferior vena cava filter placement as above. Yung Fowler MD Thoracic Spine MRI 01/24/17 Signed Impressions: Service Date/Time: Tuesday, January 24, 2017 22:29 - CONCLUSION: 1. Mild degenerative spondylosis most prominently at T11-L1 with slight effacement of the anterior thecal sac and left lateral recess. No significant neural foraminal stenosis. 2. No acute fracture. Juan Bhakta MD Renal Ultrasound 01/23/17 Signed Impressions: Service Date/Time: Monday, January 23, 2017 08:53 - CONCLUSION: 1. Evidence of chronic parenchymal disease of both kidneys. No obstructive uropathy or other acute abnormality demonstrated. 2. Trace ascites, nonspecific. Angelo Garrido MD Lumbar Spine MRI 01/23/17 Signed Impressions: Service Date/Time: Monday, January 23, 2017 17:01 - CONCLUSION: 1. At L4-5 is a broad-based disc protrusion with severe central canal and lateral recess stenosis and flattening of the exiting right L4 nerve root. 2. L5-S1 there is a disc protrusion and moderate stenosis with flattening of the exiting L5 nerve roots bilaterally. 3. At L3-4 there is a moderate to severe central stenosis and lateral recess stenosis with mild foraminal stenosis. 4. No acute fracture or spondylolisthesis. Trace Holloway MD Lower Extremity Ultrasound 01/23/17 Signed Impressions: Service Date/Time: Monday, January 23, 2017 09:53 - CONCLUSION: Bilateral focal lower extremity DVT involving the posterior tibial veins. Angelo Garrido MD Cervical Spine MRI 01/23/17 Signed Impressions: Service Date/Time: Monday, January 23, 2017 17:01 - CONCLUSION: 1. Multilevel cervical spine degenerative changes as above. 2. Mild degrees of spinal stenosis at C3/C4-C6/C7. No cord compression or cord signal abnormality. 3. Age indeterminate left paracentral/foraminal disc protrusion at C6/C7. 4. Multilevel foraminal stenosis, most severe on the left at C6/C7. Please see individual levels above. 5. No fracture or subluxation of the cervical spine. Angelo Garrido MD Brain MRI 01/23/17 0000 Signed Impressions: Service Date/Time: Monday, January 23, 2017 17:01 - CONCLUSION: 1. No acute stroke or other acute intracranial abnormality demonstrated. 2. Moderate severity chronic white matter changes, nonspecific but most likely related to chronic small vessel disease. 3. Few scattered tiny lacunar infarcts of the brainstem. 4. Given the findings are not entirely specific, clinical evaluation for possible multiple sclerosis recommended. Angelo Garrido MD Knee X-Ray [id number]/22/[id number] Signed Impressions: Service Date/Time: Sunday, January 22, 2017 21:17 - CONCLUSION: 1. Evidence of moderate to large joint effusion. 2. No acute fracture or malalignment. 3. Mild 3 compartment osteoarthritic change. Benjamin Person MD Hip and Pelvis X-Ray [id number]/22/[id number] Signed Impressions: Service Date/Time: Sunday, January 22, 2017 21:10 - CONCLUSION: 1. Mild to moderate degenerative change of both hips with no acute fracture or malalignment. There is flattening and remodeling of the right humeral head. Benjamin Person MD Objective Remarks GENERAL: 62-year-old male, resting in bed, on mechanical ventilation via tracheostomy HEENT: Normocephalic. Atraumatic. Pupils equal, round, reactive. NECK: Tracheostomy in place. Obese. left IJ hemodialysis catheter clean dry and intact CHEST: on mechanical ventilation via tracheostomy, air entry decreased bilaterally at bases, persistent scattered rhonchi bilaterally, no wheezing CARDIOVASCULAR: S1-S2 regular, no gallop or murmur ABDOMEN distended. No rigidity. Umbilical hernia is reducible. No guarding. PEG tube in place : Positive scrotal edema MUSCULOSKELETAL: Pulses 2+. 1+ bilateral upper and lower extremity edema. Wound VAC on left upper extremity NEUROLOGICAL: Awake and alert, has spontaneous eye opening. Opens and closes eyes on command, on mechanical ventilation via tracheostomy.. Moves 4 limbs weakly to stimulation. Procedures IVC filter placement 01/25/2017 LP 01/26/2017 Date of Insertion: Mar 03, 2017 Line: Central Venous Catheter Side: Right Location: Internal, Jugular A/P Problem List: (1) Septic shock ICD Code: A41.9 - Sepsis, unspecified organism; R65.21 - Severe sepsis with septic shock Status: Acute (2) Acute respiratory failure ICD Code: J96.00 - Acute respiratory failure, unspecified whether with hypoxia or hypercapnia Status: Acute (3) Thrombophlebitis arm ICD Code: I80.8 - Phlebitis and thrombophlebitis of other sites (4) Aspiration pneumonia ICD Code: J69.0 - Pneumonitis due to inhalation of food and vomit Status: Acute (5) Atelectasis of left lung ICD Code: J98.11 - Atelectasis Status: Acute (6) Quadriparesis ICD Code: G82.50 - Quadriplegia, unspecified Status: Acute (7) DVT (deep venous thrombosis) ICD Code: I82.409 - Acute embolism and thrombosis of unspecified deep veins of unspecified lower extremity (8) Altered mental status ICD Code: R41.82 - Altered mental status, unspecified Status: Acute (9) CKD (chronic kidney disease) stage 3, GFR 30-59 ml/min ICD Code: N18.3 - Chronic kidney disease, stage 3 (moderate) Status: Chronic (10) Acute renal failure ICD Code: N17.9 - Acute kidney failure, unspecified Status: Acute (11) Diabetes mellitus ICD Code: E11.9 - Type 2 diabetes mellitus without complications Status: Chronic (12) Distal end of ulna fracture, closed ICD Code: S52.609A - Unspecified fracture of lower end of unspecified ulna, initial encounter for closed fracture Status: Acute (13) Gout ICD Code: M10.9 - Gout, unspecified Status: Chronic Assessment and Plan NEURO/PSYCH: Acute metabolic encephalopathy- persistent Quadriparesis secondary to suspected transverse myelitis Recurrent falls Pain secondary to retroperitoneal hematoma. Suspected transverse myelitis. Received methylprednisolone 250 mg IV every 6 hours 01/27-02/02, started back on hydrocortisone 02/21/17, initially tapering to 50 mg IV every 8 hours starting received 1 dose at 2100 prior to becoming hypotensive. weaning hydrocortisone taper and stopped 03/09. Resumed hydrocortisone 50mg IV Q6hrly on 03/14 as patient became hypotensive following intubation on 03/13 requiring levophed. Continue 50 mg IV every 6 hours LP 01/26 and 02/01. CSF culture negative 01/26, 02/01 Oligoclonal bands negative. CSF/serum IgG index is not elevated. VDRL nonreactive. Cryptococcal antigen negative. Brain MRI 01/23 no acute stroke. Few scattered lacunar infarcts of the brainstem. Moderate chronic white matter changes. MRI cervical/thoracic spine- mild spinal stenosis C3/C4 to C6/C7. No cord compression. RPR negative Neurology has been following, Dr. Crenshaw. Repeat CT brain 02/10 - negative Continue PT/OT RESP: Acute hypoxemic respiratory failure Healthcare associated pneumonia/Aspiration Pneumonia Right-sided chest tube placed for pleural effusion. continue mechanical ventilation, vent bundle, PSV and T piece trials as tolerated Albuterol/ipratropium aerosols every 6 hours with albuterol aerosols every 2 hours prn VQ scan 02/10 low probability for PE. CT chest 02/10 - left lower lobe collapse and consolidation. CT chest 02/27 revealed right greater than left pleural effusions. Extubated 02/23. Intubated 02/28. Extubated 03/11, Reintubated on 03/13. Right-sided chest tube placement 02/28 electronic test technician, removed 03/05. Failed attempt to wean successfully due to volume overload and multiple organ failure. underwent perc tracheostomy 03/14. CV: Severe sepsis - resolved. Systolic heart failure likely chronic with ejection fraction 20-25% Hyperlipidemia History of hypertension Mild TR Sinus tachycardia Elevated troponin likely type II demand ischemia Restarted on Levophed on 03/09 for following intubation, titrated off after starting hydrocortisone. Started hydrocortisone stress dose on 03/14 (as patient has been on steroids and was just tapered off on 03/09.) Currently on atenolol 25 mg twice a day. Add amlodipine 5 mg daily As needed Nitropaste, labetalol and hydralazine for hypertension atorvastatin 10 mg by mouth daily for dyslipidemia. Troponin 0.[address]-T changes. 2-D echocardiogram 01/11 revealed EF 20-25%. Mild TR. Pulmonary arterial pressures were normal around 20 Troponin 6.55 on 03/02. Likely will need stress test of heart once stable. Cannot anticoagulate due to retroperitoneal hematoma at the present time Currently on furosemide 40 mg IV twice a day per nephrology. GI: Large right retroperitoneal hematoma Erosive esophagitis Adematous/hyperplastic colon polyps Severe acute protein calorie malnutrition Nausea/vomiting - resolved. Diarrhea Gastritis Diverticulosis Internal and external hemorrhoids Hiatal hernia Elevated lipase 02/27 CT chest/abdomen and pelvis - 9.4 x 7.5 renal and 16 x 12 cm right psoas muscle hematoma. Fluid around liver and spleen. Right-sided nephrolithiasis CTA abdomen 02/28 - possible blushing around iliac/lumbar vessels Discussed with IR. s/p attempted embolization CT abdomen and pelvis 02/10 atrophic left kidney. Bilateral inguinal hernias fat- containing. Nonobstructing 12 mm right kidney stone repeat CT abd/pelvis did not show evidence of obstruction. patient clinically has been having diarrhea (c. diff negative 02/19). also with nausea/vomiting of unclear etiology. EGD/Colonoscopy-02/22/17 showed gastritis esophagitis, hiatal hernia, diverticulosis and multiple polyps in descending colon and sigmoid which were snared biopsied. Biopsy pending Dr. Lewis consulted for intervention if needed for elevated IAP. will continue to check as needed Status post PEG tube placement by consulted Previously on on tube feeds with Nepro goal Lansoprazole 30 mg twice a day for GI prophylaxis FEN/RENAL: Acute kidney injury in the setting of Chronic kidney disease stage 3-4 History of uric acid kidney stones with prior stent BPH Nonfunctioning left kidney Acute intravascular volume overload Hypokalemia Sloan placed due to urinary retention and worsening creatinine. Monitor intake and output q1hr. Monitor electrolytes. RIOS/SPEP negative. 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 Recommended nephrostomy tube if obstruction Nephrology consulted, hemodialysis per nephrology. Making urine. Due to acute illness holding tamsulosin 0.4 mg by mouth daily for BPH ICU electrolyte replacement protocol ID: Septic shock- resolved. Abscess and Suppurative thrombophlebitis left upper extremity MSSA bacteremia Klebsiella UTI ESBL positive Acute aspiration pneumonia/HCAP Previously treated with Bactrim, ertapenem, intermittent vancomycin, nafcillin Blood cultures 2, UA ESBL positive Klebsiella UTI Sputum 03/14 - Pseudomonas came back resistant to imipenem Repeat blood cultures 2 and sputum 03/08 pending. Urine negative. Switched from meropenem to ceftazidime on 03/19, vancomycin IV 1 dose given on 03/19 and 03/22. ID following-Dr. Edwards. HEME: Acute blood loss anemia DVT, bilateral posterior tibial vein, IVC filter Septic thrombophlebitis with occlusive thrombus mid cephalic and basilic vein side Received 10 PRBC, 14 FFP, 2 platelets, 1 cryo-02/28 Past 24 hours received 3 units PRBCs Serial hemoglobins every 6 hours Recheck coags Ultrasound 01/23/17 - Bilateral lower extremity with occlusive posterior tibial vein DVTs. Heparin was initially started for DVT but was placed on hold due to LP with suspected traumatic tap. Currently holding full anticoagulation with enoxaparin 100 mg IV twice a day due to anemia as of 02/26 IVC filter was placed 01/25/17. Ultrasound LUE 02/10 occlusive thrombus mid cephalic vein, basilic vein.s. Transfuse 3 units PRBCs 02/27 Transfuse 2 units PRBCs 03/01. transfused 1 unit PRBCs on 03/14 ENDO: Diabetes mellitus Hypoglycemia History of prior adrenal insufficiency with shock Gout EGD colonoscopy completed 02/22. gastritis and esophagitis, colon polyps Started Hydrocortisone 100 mg every 8 hours 02/21/17 (Recent high dose steroids use now hypotensive, hypoglycemic), steroids had been tapered off. Resumed stress dose steroids on 03/16 as patient back on Levophed for pressor support after intubation. Decrease hydrocortisone to 50 mg IV every 12 hourly on 03/21. Accu-Cheks to maintain euglycemia Novulin R every 4 hours. Regimen Currently on insulin detemir 25 units twice a day for hyperglycemia which is probably worse since starting stress dose steroids. MSK: Right distal ulna fracture. Dr. Nathan with orthopedics has evaluated and recommended nonoperative management. Right wrist splint in place. PROPH: Lansoprazole 30 mg twice a day twice a day for stress ulcer prophylaxis. Has IVC filter. Therapeutic enoxaparin currently on hold for retroperitoneal hematoma ACCESS: right IJ CVL placed 03/03-03/20. A left IJ hemodialysis catheter placed 03/01 - 03/23. Left femoral A line placed 03/14 - discontinued 03/19 Overall impression: Patient remains critically ill with respiratory failure requiring reintubation. Tracheostomy placed for comfort. Palliative care to assist with deciding goals of therapy. Prognosis poor. Problem Qualifiers (1) Aspiration pneumonia: (2) DVT (deep venous thrombosis): Qualified Codes: I82.443 - Acute embolism and thrombosis of tibial vein, bilateral (3) Acute renal failure: Qualified Codes: N17.9 - Acute kidney failure, unspecified (4) Diabetes mellitus: (5) Gout: Janes Aguiar MD Mar 23, 2017 13:49
--- NOTE | 2017-03-23 13:53 | HHI.NPPN ---
Subjective History of Present Illness 61-year-old with history of urinary stone Additional Remarks Patient had trach on trach collar O2 sitting in chair Review of Systems General Constitutional: Fatigue Objective Data Data Vital Signs Date Time Temp Pulse Resp B/P (MAP) Pulse Ox O2 Delivery O2 Flow Rate FiO2 03/23/17 12:00 98.8 85 30 175/98 (123) 98 03/23/17 11:19 100 T-piece 5.00 35 03/23/17 10:00 82 03/23/17 08:00 98.6 66 17 174/91 (118) 100 03/23/17 08:00 66 03/23/17 08:00 40 03/23/17 06:58 16 03/23/17 06:00 68 03/23/17 04:00 80 03/23/17 04:00 99.0 80 15 165/93 (117) 100 03/23/17 04:00 40 03/23/17 02:00 76 03/23/17 00:24 100 40 03/23/17 00:00 40 03/23/17 00:00 82 03/23/17 00:00 98.5 82 25 148/81 (103) 99 03/22/17 22:00 74 03/22/17 21:58 99 Trach Collar 40 03/22/17 20:00 99.0 74 23 169/98 (121) 98 03/22/17 20:00 74 03/22/17 20:00 40 03/22/17 18:00 82 03/22/17 16:00 99.8 82 26 154/90 (111) 97 03/22/17 16:00 40 03/22/17 16:00 82 03/22/17 14:15 99 T-piece 6.00 35 03/22/17 14:00 76 -: 03/23/17 0419 03/23/17 0419 Physical Exam General Appearance: Pale Eyes Eye Exam: Pupils Equal Throat Throat Exam: Oral Mucosa [place] & Moist Neck Neck Exam: Neck Supple Pulmonary Resp Exam: Clear Bilaterally Cardiology CV Exam: Normal Sinus Rhythm Gastrointestinal/Abdomen GI Exam: Non-Tender, Distended Extremeties Extremities Exam: Moderate Edema, Pitting Edema Neurologic Neuro Exam: Awake Assessment/Plan Problem List: (1) Acute renal failure ICD Codes: N17.9 - Acute kidney failure, unspecified Status: Acute Plan: Patient developed Hypotension,sepsis staph aureus respiratory failure and increase WBC. 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 Aguiar (2) CKD (chronic kidney disease) stage 3, GFR 30-59 ml/min ICD Codes: N18.3 - Chronic kidney disease, stage 3 (moderate) Status: Chronic Plan: Ultrasound revealed chronic kidney disease there is no kidney stones (3) Diabetes ICD Codes: E11.9 - Type 2 diabetes mellitus without complications Plan: Continue to monitor (4) Distal end of ulna fracture, closed ICD Codes: S52.609A - Unspecified fracture of lower end of unspecified ulna, initial encounter for closed fracture Status: Acute Plan: Orthopedic is following Problem Qualifiers (1) Acute renal failure: Qualified Codes: N17.9 - Acute kidney failure, unspecified Laura Liao MD Mar 23, 2017 13:53
[2017-03-23] MEDS ORDERED: amLODIPine BESYLATE 5 MG TAB PO ONE (14:15)
[2017-03-23] MEDS ORDERED: POTASSIUM CHLORIDE 20 MEQ PWD PACKET PEG ONE (14:15)
--- NOTE | 2017-03-23 14:34 | HHI.HCPN ---
Reason for visit a. To assist with evaluation and management of symptoms including: shortness of breath, pain, debility b. To assist medical decision maker(s) with: better understanding of current medical conditions; weighing benefits/burdens of medical treatment options; making medical treatment decisions. Subjective/Interval History Mr Kerr is a 62 years old male with a past medical history of hypertension, asthma, diabetes, hyperlipidemia, chronic kidney disease and gout. Patient presented to the ED on 01/22/17 complaining of bilateral knee and right arm pain after a mechanical fall 4 or 5 days prior to coming to the ER. Patient has been experiencing progressive weakness of bilateral lower extremities as well as bilateral upper extremities prior to ER visit. Patient seen in ICU, awake sitting up in a specialty stretcher chair with no signs of distress. Patient following simple commands with decreased strength with all 4 extremities. Continues to try mouthing some words. Patient is currently on T piece 35%. Per bedside RN, patient has been tolerating T-bruce trials, alternating with CPAP at night. Respirations unlabored, O2 saturation high 90s. Patient is afebrile. SBP 140s to 170s. Laboratory workup revealing WBC 19.8, hemoglobin 10.9, hematocrit 34.7, platelet count 377, sodium 145, potassium 3.2, BUN/creatinine 68/1.23, PCC 8.4, AST 44, ALT 19, alkaline phosphatase 200, total protein 5.3, albumin 2.0. Nephrology and ID following. Plan to remove Vas-Cath today. Urine output averaging 1.03 ml/kg/hr. no recent imaging Patient`s sister Deb at bedside, visiting with patient. Updated on medical status. Appreciate of palliative follow-up. Case discussed with bedside RN Nabila Brooke . Family/friend interactions Patient sister at bedside. . Advance Directives Living Will: Never completed Health Care Surrogate: Never completed Durable Power of [employer]: Never completed Advance Directive Specifics Documented care wishes: No known documented care wishes have been completed. . Objective Vital Signs Date Time Temp Pulse Resp B/P (MAP) Pulse Ox O2 Delivery O2 Flow Rate FiO2 03/23/17 12:00 35 03/23/17 12:00 98.8 85 30 175/98 (123) 98 03/23/17 12:00 84 03/23/17 11:19 100 T-piece 5.00 35 03/23/17 10:00 82 03/23/17 08:00 98.6 66 17 174/91 (118) 100 03/23/17 08:00 66 03/23/17 08:00 40 03/23/17 06:58 16 03/23/17 06:00 68 03/23/17 04:00 80 03/23/17 04:00 99.0 80 15 165/93 (117) 100 03/23/17 04:00 40 03/23/17 02:00 76 03/23/17 00:24 100 40 03/23/17 00:00 40 03/23/17 00:00 82 03/23/17 00:00 98.5 82 25 148/81 (103) 99 03/22/17 22:00 74 03/22/17 21:58 99 Trach Collar 40 03/22/17 20:00 99.0 74 23 169/98 (121) 98 03/22/17 20:00 74 03/22/17 20:00 40 03/22/17 18:00 82 03/22/17 16:00 99.8 82 26 154/90 (111) 97 03/22/17 16:00 40 03/22/17 16:00 82 Intake & Output 03/23/17 03/23/17 07:00 19:00 Intake Total 1736 ml Output Total 1252 ml Balance 484 ml IV Total 815 ml Tube Feeding 821 ml Tube Irrigant 100 ml Output Urine Total 1250 ml Stool Total 2 ml Physical Exam CONSTITUTIONAL/GENERAL: This is an adequately nourished patient, trached on T piece TUBES/LINES/DRAINS: LIJ Vas Cath, PEG tube, Tracheostomy, PIVs, FC SKIN: No jaundice. Ecchymoses on upper extremities. Sacral pressure wound and L heel pressure injury. Afebrile. Not diaphoretic. HEAD: Atraumatic. Normocephalic. EYES: Pupils equal and round, slight reaction.No scleral icterus. No injection or drainage. Fundi not examined. ENT: Trached with no sedation. Nose without bleeding or purulent drainage. Moist oral mucosa. NECK: Trachea midline. Supple, nontender. CARDIOVASCULAR: Regular rate and rhythm without murmurs, gallops, or rubs. No JVD. RESPIRATORY/CHEST: Symmetric, unlabored respirations. rhonchi to auscultation. Breath sounds equal bilaterally. GASTROINTESTINAL: Abdomen soft, non-tender, nondistended. No guarding. Bowel sounds present. Nepro infusing at 55ml/hr via PEG tube GENITOURINARY: Without palpable bladder distension. Sloan catheter in with clear urine. Scrotal edema. MUSCULOSKELETAL: Gout tophi to fingers, knees, elbows and both ankles. 2+ edema to all 4 extremities. NEUROLOGICAL: Tracheostomy on T-bruce 35%. Patient is awake and alert, sitting up on a stretcher chair ,followed simple commands with all 4 extremities, trying to mouth some words. PSYCHIATRIC: No obvious anxiety/depression. no apparent hallucinations or other psychotic thought process. . Diagnostic Tests Laboratory Laboratory Tests Test 03/20/17 16:02 03/21/17 05:00 03/21/17 05:10 03/21/17 23:09 Potassium Level 2.9 MEQ/L (3.5-5.1) 3.1 MEQ/L (3.5-5.1) Phosphorus Level 1.6 MG/DL (2.5-4.9) 3.8 MG/DL (2.5-4.9) 4.2 MG/DL (2.5-4.9) White Blood Count 19.0 TH/MM3 (4.0-11.0) Red Blood Count 3.35 MIL/MM3 (4.50-5.90) Hemoglobin 9.6 GM/DL (13.0-17.0) Hematocrit 29.3 % (39.0-51.0) Mean Corpuscular Volume 87.5 FL (80.0-100.0) Mean Corpuscular Hemoglobin 28.7 PG (27.0-34.0) Mean Corpuscular Hemoglobin Concent 32.8 % (32.0-36.0) Red Cell Distribution Width 15.6 % (11.6-17.2) Platelet Count 340 TH/MM3 (150-450) Mean Platelet Volume 9.5 FL (7.0-11.0) Blood Urea Nitrogen 80 MG/DL (7-18) Creatinine 1.66 MG/DL (0.60-1.30) Random Glucose 171 MG/DL (74-106) Calcium Level 7.8 MG/DL (8.5-10.1) Sodium Level 146 MEQ/L (136-145) Chloride Level 108 MEQ/L (98-107) Carbon Dioxide Level 25.4 MEQ/L (21.0-32.0) Anion Gap 13 MEQ/L (5-15) Estimat Glomerular Filtration Rate 42 ML/MIN (>89) Random Vancomycin Level 18.0 COMMENT Prothrombin Time 12.1 SEC (9.8-11.6) Prothromb Time International Ratio 1.1 RATIO Test 03/22/17 23:49 03/23/17 04:19 Potassium Level 2.9 MEQ/L (3.5-5.1) 3.2 MEQ/L (3.5-5.1) White Blood Count 19.8 TH/MM3 (4.0-11.0) Red Blood Count 3.83 MIL/MM3 (4.50-5.90) Hemoglobin 10.9 GM/DL (13.0-17.0) Hematocrit 34.7 % (39.0-51.0) Mean Corpuscular Volume 90.6 FL (80.0-100.0) Mean Corpuscular Hemoglobin 28.4 PG (27.0-34.0) Mean Corpuscular Hemoglobin Concent 31.3 % (32.0-36.0) Red Cell Distribution Width 16.5 % (11.6-17.2) Platelet Count 377 TH/MM3 (150-450) Mean Platelet Volume 9.5 FL (7.0-11.0) Neutrophils (%) (Auto) 86.9 % (16.0-70.0) Lymphocytes (%) (Auto) 4.0 % (9.0-44.0) Monocytes (%) (Auto) 8.7 % (0.0-8.0) Eosinophils (%) (Auto) 0.3 % (0.0-4.0) Basophils (%) (Auto) 0.1 % (0.0-2.0) Neutrophils # (Auto) 17.2 TH/MM3 (1.8-7.7) Lymphocytes # (Auto) 0.8 TH/MM3 (1.0-4.8) Monocytes # (Auto) 1.7 TH/MM3 (0-0.9) Eosinophils # (Auto) 0.1 TH/MM3 (0-0.4) Basophils # (Auto) 0.0 TH/MM3 (0-0.2) CBC Comment AUTO DIFF Differential Total Cells Counted 100 Neutrophils % (Manual) 76 % (16-70) Band Neutrophils % 8 % (0-6) Lymphocytes % 2 % (9-44) Monocytes % 5 % (0-8) Neutrophils # (Manual) 18.4 TH/MM3 (1.8-7.7) Metamyelocytes 8 % (0-1) Myelocytes 1 % (0-0) Nucleated Red Blood Cells 2 /100 WBC (0-0) Differential Comment FINAL DIFF MANUAL Platelet Estimate NORMAL (NORMAL) Platelet Morphology Comment NORMAL (NORMAL) Blood Urea Nitrogen 68 MG/DL (7-18) Creatinine 1.23 MG/DL (0.60-1.30) Random Glucose 206 MG/DL (74-106) Total Protein 5.3 GM/DL (6.4-8.2) Albumin 2.0 GM/DL (3.4-5.0) Calcium Level 7.4 MG/DL (8.5-10.1) Alkaline Phosphatase 200 U/L (45-117) Aspartate Amino Transf (AST/SGOT) 44 U/L (15-37) Alanine Aminotransferase (ALT/SGPT) 19 U/L (12-78) Total Bilirubin 0.6 MG/DL (0.2-1.0) Sodium Level 145 MEQ/L (136-145) Chloride Level 106 MEQ/L (98-107) Carbon Dioxide Level 27.3 MEQ/L (21.0-32.0) Anion Gap 12 MEQ/L (5-15) Estimat Glomerular Filtration Rate 60 ML/MIN (>89) Protein Corrected Calcium 8.4 MG/DL (8.5-10.1) Result Diagram: 03/23/17 0419 03/23/17 0419 Procedures 01/25/2017- Retrievable IVC Filter placement 01/26/17-lumbar puncture with fluoroscopy-by interventional radiology 02/01/17- lumbar puncture fluoroscopy by interventional radiology 02/10/17- Endotracheal Intubation 02/10/17-left IJ central venous line placed 02/10/17-left femoral arterial line placed 02/11/17-Diagnostic and therapeutic bronchoscopy with bronchoalveolar lavage 02/11/17-Left upper extremity incision and debridement with excision of septic cephalic vein 02/13/17- Extubated 02/20/17- endotracheal intubation 02/20/17- Left subclavian central line placement 02/20/17-Right radial A-line placement 02/22/17-EGD/colonoscopy 02/28/17-right radial a line 02/28/17- Endotracheal intubation 02/28/17- right sided introducer catheter placement 02/28/17- Right IJ central line placement 02/28/17-Right chest tube placement 02/28/17- Embolization of inferior and superior sacral branches of right internal iliac artery 03/01/17- Hemodialysis access catheter 03/03/17-Right IJ central line placement 03/11/17-Extubated 03/13/17- Endotracheal intubation 03/14/17-Tracheostomy placement 03/15/17-PEG tube placement . Assessment and Plan Disease Oriented Problem List: (1) Acute respiratory failure (2) Septic shock (3) Aspiration pneumonia (4) Acute renal failure (5) CKD (chronic kidney disease) stage 3, GFR 30-59 ml/min (6) Cardiomyopathy (7) DVT of lower extremity, bilateral (8) Thrombophlebitis arm (9) Diabetes mellitus (10) Gout (11) HTN (hypertension) (12) Hyperlipidemia Symptom Scale: (1) Shortness of breath 0-10 Scale: Unable to quantify Comment: Currently trached on T piece 35% . (2) Debility 0-10 Scale: Unable to quantify Comment: Progressive. . (3) Pain 0-10 Scale: Unable to quantify Comment: History of falls, gout, arthritis, and currently bedbound. . Pertinent Non-Medical Issues Psychosocial:Patient was born and raised in [place], [place]. Patient was once for 20 years, now and has 2 adult sons. 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 He recently resigned due to failing health. Spiritual: No hinduism affiliation Legal: Per [place] statutes, in the absence of written advanced directives healthcare proxy decision making falls to the patient's 2 adult children. Patient's son (aDvie) lives locally and wishes to participate in the role of the healthcare proxy decision maker. Palliative care has attempted to contact Arnel, has not call back. Patient`s sister Deb and patients brother verbalized that they have been updating Arnel on patient`s medical status. Ethical issues impacting care: No known ethical issues impacting care at this time. . Important Contacts Son-Davie Canaan - Son-Arnel Kerr- -cell -home Sister-Deb Curry . Prognosis Mr Kerr is a 62 years old male with a past medical history of hypertension, asthma, diabetes, hyperlipidemia, chronic kidney disease and gout. Patient presented to the ED on 01/22/17 complaining of bilateral knee and right arm pain after a mechanical fall 4 or 5 days prior to coming to the ER. Clinical course complicated with increased weakness leading to numerous diagnostic work ups for possible transverse myelitis, DVTs, retroperitoneal hematoma, aspiration pneumonia, intubation x 4 times, septic and hemorrhagic shock requiring support with pressors and multiple pRBC, FFP transfusions as well as platelets and cryo , renal failure requiring hemodialysis and sacral wound Given ongoing comorbidities, and prolonged hospitalization, patient remains at risk for further complications, deterioration and decline. Code Status: Full Code Plan PLAN: Legal decision maker: Patient is currently intubated, sedated on a mechanical ventilation and is not able to make any medical decisions for himself at this time. It is unclear if patient will regain capacity to make medical decisions at this time. Patient has 2 adult sons Davie Kerr and Arnel Kerr. According to [place] Statute, his two aforementioned sons will serve as his health care proxys. Patient`s son Davie is acting in the role of HCP decision maker independently at this time given that he is the one who is reasonably available for consultation. Goals: 03/21/17- Remain Aggressive. CODE STATUS: Full Code SYMPTOMS: * Shortness of breath: Multifactorial. Patient has had aspiration pneumonia. Patient has been intubated 4 times this hospitalization. Patient has a tracheostomy. Currently on T-Bruce 35%. Patient on duonebs. Patient also on Hydrocortisone 50mg q 6 hours. Consult to [facility]. * Pain: Patient presented initially complaining of pain to right wrist and bilateral knees after a mechanical fall. Patient has a history of gout, arthritis, multiple falls and is currently bedbound. Patient on Oxycodone q 4 hours ATC. Patient does not appear to be in pain. Patient also on Hydrocortisone. * Debility: Progressive. Patient has had decline in his health for the past 4 months, including progressively increased weakness and difficulty ambulating and prolonged hospitalization with multiple setbacks. Patient remains at high risk for further physical deconditioning and debility. PT and OT following with patient. Recommending continued PT and OT sessions since patient is hemodynamically stable and somewhat more alert. Patient may benefit from PT and OT at rehab. Palliative care will continue to follow the patient during hospital course as condition evolves, to assist patient/decision-maker with understanding of their medical conditions, weighing benefits/burdens of treatment options, for clarification of goals of treatment. Additionally will assist with any symptoms of palliative concern. . Attestation To help prompt me to consider important information that might be impacting today's encounter and assessment, information from prior notes written by myself or my colleagues may have been "brought forward" into today's note. My signature on this note, however, is an attestation that I personally performed the exam, history, and/or decision-making noted today, and, unless otherwise indicated, the interactions with patient, family, and staff as well as the review of records all occurred today. I also attest that the listed assessment and stated plan reflect my best clinical judgment today based on the combination of historical information, prior notes, and today's exam/ interactions. When time spent is documented, it refers only to time spent today by the signer, or if indicated, combined time spent today by collaborating physician/nurse practitioner. . Aftab Cartwright Mar 23, 2017 14:34
--- NOTE | 2017-03-23 16:44 | HHI.IDPN ---
Subjective Subjective Remarks Patient is a 62-year-old male, admitted to the hospital for evaluation of pain in his right wrist. He gave a history of falling about a week ago and apparently had immediate pain in the right wrist. He did not seek any medical attention initially because reportedly he was very busy. He eventually presented, and he was found to have a distal ulnar fracture on plain films. He also had some redness and swelling. Orthopedics saw the patient, and was being treated conservatively with the splint. During this hospitalization also he started complaining of generalized weakness but more so in his lower extremity than his upper extremity. He had swelling in both lower extremity which revealed evidence of DVT in the posterior tibial veins. Neurology had seen the patient and he underwent lumbar puncture which apparently was traumatic. Patient was therefore not given anticoagulation because of the traumatic LP, and he underwent placement of an IVC filter on January 25. Patient had another lumbar puncture on February 01. He was felt to have transverse myelitis, and he was given high-dose IV Solu-Medrol from January 27 to February 02. There was apparently some improvement in his weakness. The imaging studies done for his weakness showed some spinal stenosis, and neurosurgery was consult that and recommended that there was no surgical intervention to be done. Patient has been stabilizing, but last night apparently deteriorated, and he ended up getting intubated, and had significant hypotension requiring pressors. There was also an ultrasound done of his left upper extremity which showed DVT, and there was evidence of superior 2 thrombophlebitis. Vascular surgery was consult to it and he had IND on his left upper extremity. Patient has had some fevers since yesterday. 2 blood cultures were done yesterday and they're now reported as growing gram-positive cocci in [place] in clusters. He is currently sedated and intubated. He is on Levophed and vasopressin. A central line was placed as well as a femoral a line. He apparently had an IV in his left upper extremity and that was removed yesterday. Patient also has history of chronic kidney disease, and nephrology evaluated the patient. He was just being monitored for his renal insufficiency. Infectious disease consultation has been requested to evaluate the patient. Notes reviewed Temps ok BP good Tolerating T-piece Awake and following some commands HD yesterday WBC up today Has good UO Creatinine improving S/P trach S/P PEG Sputum with Pseudomonas Reintubated 03/12 Antibiotics I attest that I obtained, updated or reviewed the home and current medications. Fortaz IV Vanco IV intermittent dosing Current Medications Medications (Trade) Dose Ordered Sig/Rosalia Route Start Time Stop Time Status Last Admin (NS Flush) 2 ml UNSCH PRN IV FLUSH 01/23/17 00:30 02/01/17 05:07 (NS Flush) 2 ml BID IV FLUSH 01/23/17 09:00 03/23/17 08:42 (Zofran Inj) 4 mg Q6H PRN IVP 01/23/17 00:30 02/26/17 17:23 (Narcan Inj) 0.4 mg UNSCH PRN IV 01/23/17 00:30 (Edna-Colace) 1 tab BID PO 01/23/17 09:00 Future Hold 02/24/17 20:31 (Dulcolax Supp) 10 mg DAILY PRN RECTAL 01/23/17 00:30 (Lipitor) 10 mg HS PO 01/24/17 21:00 Future hold 03/22/17 20:50 (Glucagon Inj) 1 mg UNSCH PRN OTHER 02/11/17 05:45 02/18/17 18:53 (Flomax) 0.4 mg Q12HR PO 02/17/17 15:00 Future Hold 02/26/17 08:49 (Lovenox Inj) 100 mg Q12H SQ 02/18/17 12:00 Future Hold 02/26/17 16:20 (Lactinex) 1 tab TID PO 02/19/17 13:00 03/23/17 12:56 (Apresoline Inj) 10 mg Q30M PRN IV PUSH 02/20/17 11:45 03/22/17 22:06 (D50w (Vial) Inj) 25 ml UNSCH PRN IV PUSH 02/20/17 12:45 Sodium Chloride 1,000 ml @ 20 mls/hr Q24H IV 02/22/17 13:00 03/22/17 13:00 (Questran Light Pkt) 4 gm Q12HR PO 02/25/17 21:00 Future Hold 02/27/17 10:32 (Aldactone) 25 mg DAILY PO 02/27/17 09:00 Future Hold (Reglan Inj) 5 mg Q8HR IV PUSH 02/26/17 22:00 03/23/17 13:00 (Peridex 0.12% Liq) 15 ml BID@08,20 MT 02/28/17 08:00 03/23/17 08:41 (Albuterol Neb) 2.5 mg Q2HR NEB PRN NEB 02/28/17 07:45 03/21/17 19:21 (NovoLIN R SUPPLEMENTAL SCALE) 1 Q4HR SQ 02/28/17 08:00 03/23/17 12:54 (NS Flush) UNSCH PRN IV FLUSH 03/01/17 13:00 (Heparin Inj) UNSCH PRN IV FLUSH 03/01/17 13:00 (NS Flush) DAILY IV FLUSH 03/04/17 09:00 03/20/17 08:05 (NS Flush) UNSCH PRN IV FLUSH 03/03/17 18:45 (Roxicodone Intensol Liq) 10 mg Q4H PO 03/05/17 14:00 03/23/17 13:00 (Prevacid Odt) 30 mg BID NG 03/07/17 21:00 03/23/17 09:47 (Tylenol 650 Mg/ 20 ml Liq) 650 mg Q6H PRN PO 03/09/17 10:15 03/14/17 05:24 (Lasix Inj) 40 mg BID@09,18 IV PUSH 03/10/17 18:00 03/23/17 09:47 (Trandate Inj) 20 mg Q4H PRN IV 03/12/17 04:30 03/17/17 12:25 (Tenormin) 25 mg Q12HR PO 03/12/17 10:00 03/23/17 09:47 Midazolam HCl 100 ml @ 2 mls/hr TITRATE PRN IV 03/13/17 01:00 03/14/17 09:21 (SoluCORTEF INJ) 50 mg Q6HR IV PUSH 03/14/17 18:00 03/23/17 12:54 (Epogen Inj) 10,000 units UNSCH PRN IV PUSH 03/17/17 11:30 03/22/17 10:52 (Levemir Inj) 25 units BID SQ 03/19/17 09:00 03/23/17 09:48 Ceftazidime 2000 mg/Sodium Chloride 100 ml @ 200 mls/hr Q12H IV 03/19/17 13:00 03/27/17 23:00 03/23/17 12:55 Vancomycin HCl 1000 mg/Sodium Chloride 250 ml @ 250 mls/hr EUCLID OPERATOR IV 03/21/17 09:15 03/24/17 09:14 Potassium Chloride 100 ml @ 50 mls/hr Q2H PRN IV 03/21/17 22:45 Potassium Chloride 100 ml @ 50 mls/hr Q2H PRN IV 03/21/17 22:45 03/23/17 09:48 (K-Lyte Cl Eff) 50 meq UNSCH PRN PO 03/21/17 22:45 Potassium Chloride 100 ml @ 25 mls/hr UNSCH PRN IV 03/21/17 22:45 Potassium Chloride 100 ml @ 50 mls/hr Q2H PRN IV 03/21/17 22:45 Magnesium Sulfate 4 gm/Sodium Chloride 100 ml @ 50 mls/hr UNSCH PRN IV 03/21/17 22:45 (Mag-Ox) 800 mg UNSCH PRN PO 03/21/17 22:45 Magnesium Sulfate 2 gm/Sodium Chloride 100 ml @ 50 mls/hr UNSCH PRN IV 03/21/17 22:45 (K-Phos) 2,000 mg Q4H PRN PO 03/21/17 22:45 Sodium Phosphate 30 mmol/Sodium Chloride 250 ml @ 42 mls/hr UNSCH PRN IV 03/21/17 22:45 (K-Phos) 2,000 mg UNSCH PRN PO/TUBE 03/21/17 22:45 Potassium Phosphate 30 mmol/ Sodium Chloride 260 ml @ 42 mls/hr UNSCH PRN IV 03/21/17 22:45 (Norvasc) 5 mg DAILY PO 03/24/17 09:00 (Nitroglycerin 2% Oint) 2 inch Q6H PRN TOPICAL 03/23/17 14:00 (Duoneb Neb) 1 ampule Q6HR NEB NEB 03/23/17 16:00 Nnamdi haro Past Medical History Reviewed Allergies: Coded Allergies: levofloxacin (Verified Allergy, Severe, 01/22/17) Objective . Vital Signs Date Time Temp Pulse Resp B/P (MAP) Pulse Ox O2 Delivery O2 Flow Rate FiO2 03/23/17 16:00 68 03/23/17 16:00 98.4 68 16 165/82 (109) 100 03/23/17 14:00 80 03/23/17 12:00 35 03/23/17 12:00 98.8 85 30 175/98 (123) 98 03/23/17 12:00 84 03/23/17 11:19 100 T-piece 5.00 35 03/23/17 10:00 82 03/23/17 08:00 98.6 66 17 174/91 (118) 100 03/23/17 08:00 66 03/23/17 08:00 40 03/23/17 06:58 16 03/23/17 06:00 68 03/23/17 04:00 80 03/23/17 04:00 99.0 80 15 165/93 (117) 100 03/23/17 04:00 40 03/23/17 02:00 76 03/23/17 00:24 100 40 03/23/17 00:00 40 03/23/17 00:00 82 03/23/17 00:00 98.5 82 25 148/81 (103) 99 03/22/17 22:00 74 03/22/17 21:58 99 Trach Collar 40 03/22/17 20:00 99.0 74 23 169/98 (121) 98 03/22/17 20:00 74 03/22/17 20:00 40 03/22/17 18:00 82 . Laboratory Tests Test 03/23/17 04:19 White Blood Count 19.8 TH/MM3 Red Blood Count 3.83 MIL/MM3 Hemoglobin 10.9 GM/DL Hematocrit 34.7 % Mean Corpuscular Volume 90.6 FL Mean Corpuscular Hemoglobin 28.4 PG Mean Corpuscular Hemoglobin Concent 31.3 % Red Cell Distribution Width 16.5 % Platelet Count 377 TH/MM3 Mean Platelet Volume 9.5 FL Neutrophils (%) (Auto) 86.9 % Lymphocytes (%) (Auto) 4.0 % Monocytes (%) (Auto) 8.7 % Eosinophils (%) (Auto) 0.3 % Basophils (%) (Auto) 0.1 % Neutrophils # (Auto) 17.2 TH/MM3 Lymphocytes # (Auto) 0.8 TH/MM3 Monocytes # (Auto) 1.7 TH/MM3 Eosinophils # (Auto) 0.1 TH/MM3 Basophils # (Auto) 0.0 TH/MM3 CBC Comment AUTO DIFF Differential Total Cells Counted 100 Neutrophils % (Manual) 76 % Band Neutrophils % 8 % Lymphocytes % 2 % Monocytes % 5 % Neutrophils # (Manual) 18.4 TH/MM3 Metamyelocytes 8 % Myelocytes 1 % Nucleated Red Blood Cells 2 /100 WBC Differential Comment FINAL DIFF MANUAL Platelet Estimate NORMAL Platelet Morphology Comment NORMAL Laboratory Tests Test 03/21/17 23:09 03/22/17 23:49 03/23/17 04:19 Phosphorus Level 4.2 MG/DL Potassium Level 2.9 MEQ/L 3.2 MEQ/L Blood Urea Nitrogen 68 MG/DL Creatinine 1.23 MG/DL Random Glucose 206 MG/DL Total Protein 5.3 GM/DL Albumin 2.0 GM/DL Calcium Level 7.4 MG/DL Alkaline Phosphatase 200 U/L Aspartate Amino Transf (AST/SGOT) 44 U/L Alanine Aminotransferase (ALT/SGPT) 19 U/L Total Bilirubin 0.6 MG/DL Sodium Level 145 MEQ/L Chloride Level 106 MEQ/L Carbon Dioxide Level 27.3 MEQ/L Anion Gap 12 MEQ/L Estimat Glomerular Filtration Rate 60 ML/MIN Protein Corrected Calcium 8.4 MG/DL Imaging Chest X-Ray 03/14/17 0000 Signed Impressions: Service Date/Time: Tuesday, March 14, 2017 13:41 - CONCLUSION: 1. Tracheostomy in good position. 2. Left lower lung infiltrates and left pleural effusion. Candido Patton MD Aortography 02/28/17 0000 Signed Impressions: Service Date/Time: Tuesday, February 28, 2017 08:01 - CONCLUSION: 1. Active hemorrhage from distal right lateral sacral and iliolumbar branches successfully coil and Gelfoam embolized, as above. Juan Bhakta MD Abdomen/Pelvis CT 02/28/17 0000 Signed Impressions: Service Date/Time: Tuesday, February 28, 2017 06:51 - CONCLUSION: 1. The right retroperitoneal hematoma has increased in size, as above. There are 2 serpiginous arterially enhancing structures visualized, one in the right psoas muscle and another extending into the hematoma at the right iliac fossa. These could represent sites of continued active bleeding. 2. Stable moderate size left and small right pleural effusion with associated compressive atelectasis. 3. Stable small volume of free fluid in the abdomen and pelvis. There is also anasarca. The findings concerning the retroperitoneal hematoma were discussed with Dr. Aguiar via telephone at approximately 7: 10 AM on 02/28/2017. Angelo Allen MD Chest CT 02/27/17 0000 Signed Impressions: Service Date/Time: Monday, February 27, 2017 18:12 - CONCLUSION: 1. Bilateral pleural effusions with bibasilar atelectasis, left greater than right. Tom Sanchez MD Abdomen X-Ray 02/26/17 0000 Signed Impressions: Service Date/Time: Sunday, February 26, 2017 14:52 - CONCLUSION: 1. Nonobstructive bowel gas pattern. Juan Bhakta MD Upper Extremity Ultrasound 02/10/17 0000 Signed Impressions: Service Date/Time: Friday, February 10, 2017 18:46 - CONCLUSION: Occlusive thrombus in the cephalic and basilic veins. Benjamin Person MD Lung Scan- Nuclear Medicine 02/10/17 0000 Signed Impressions: Service Date/Time: Friday, February 10, 2017 22:17 - CONCLUSION: Low probability pulmonary embolism. Candido Patton MD Head CT 02/10/17 0000 Signed Impressions: Service Date/Time: Friday, February 10, 2017 23:51 - CONCLUSION: Negative noncontrast CT brain. Candido Patton MD Wrist X-Ray 02/06/17 0000 Signed Impressions: Service Date/Time: Monday, February 06, 2017 12:50 - CONCLUSION: Minimally displaced distal radius and ulnar fractures. Armando Dodd MD Lumbar Puncture Fluoroscopy 02/01/17 0000 Signed Impressions: Service Date/Time: January 09:35 - CONCLUSION: Uncomplicated fluoroscopically guided lumbar puncture. CSF was clear. Nabeel Peralta MD Head Magnetic Resonance Angiography 01/27/17 0000 Signed Impressions: Service Date/Time: Friday, January 27, 2017 10:33 - CONCLUSION: No intracranial vascular abnormality is identified. There is no aneurysm visualized. Angelo Allen MD IVC Filter Placement X-Ray 01/25/17 0000 Signed Impressions: Service Date/Time: January 10:29 - CONCLUSION: Uncomplicated inferior vena cava filter placement as above. Yung Fowler MD Thoracic Spine MRI 01/24/17 Signed Impressions: Service Date/Time: Tuesday, January 24, 2017 22:29 - CONCLUSION: 1. Mild degenerative spondylosis most prominently at T11-L1 with slight effacement of the anterior thecal sac and left lateral recess. No significant neural foraminal stenosis. 2. No acute fracture. Juan Bhakta MD Renal Ultrasound 01/23/17 Signed Impressions: Service Date/Time: Monday, January 23, 2017 08:53 - CONCLUSION: 1. Evidence of chronic parenchymal disease of both kidneys. No obstructive uropathy or other acute abnormality demonstrated. 2. Trace ascites, nonspecific. Angelo Garrido MD Lumbar Spine MRI 01/23/17 Signed Impressions: Service Date/Time: Monday, January 23, 2017 17:01 - CONCLUSION: 1. At L4-5 is a broad-based disc protrusion with severe central canal and lateral recess stenosis and flattening of the exiting right L4 nerve root. 2. L5-S1 there is a disc protrusion and moderate stenosis with flattening of the exiting L5 nerve roots bilaterally. 3. At L3-4 there is a moderate to severe central stenosis and lateral recess stenosis with mild foraminal stenosis. 4. No acute fracture or spondylolisthesis. Trace Holloway MD Lower Extremity Ultrasound 01/23/17 Signed Impressions: Service Date/Time: Monday, January 23, 2017 09:53 - CONCLUSION: Bilateral focal lower extremity DVT involving the posterior tibial veins. Angelo Garrido MD Cervical Spine MRI 01/23/17 Signed Impressions: Service Date/Time: Monday, January 23, 2017 17:01 - CONCLUSION: 1. Multilevel cervical spine degenerative changes as above. 2. Mild degrees of spinal stenosis at C3/C4-C6/C7. No cord compression or cord signal abnormality. 3. Age indeterminate left paracentral/foraminal disc protrusion at C6/C7. 4. Multilevel foraminal stenosis, most severe on the left at C6/C7. Please see individual levels above. 5. No fracture or subluxation of the cervical spine. Angelo Garrido MD Brain MRI 01/23/17 Signed Impressions: Service Date/Time: Monday, January 23, 2017 17:01 - CONCLUSION: 1. No acute stroke or other acute intracranial abnormality demonstrated. 2. Moderate severity chronic white matter changes, nonspecific but most likely related to chronic small vessel disease. 3. Few scattered tiny lacunar infarcts of the brainstem. 4. Given the findings are not entirely specific, clinical evaluation for possible multiple sclerosis recommended. Angelo Garrido MD Knee X-Ray [id number]/22/[id number] Signed Impressions: Service Date/Time: Sunday, January 22, 2017 21:17 - CONCLUSION: 1. Evidence of moderate to large joint effusion. 2. No acute fracture or malalignment. 3. Mild 3 compartment osteoarthritic change. Benjamin Person MD Hip and Pelvis X-Ray [id number]/[id number] Signed Impressions: Service Date/Time: Sunday, January 22, 2017 21:10 - CONCLUSION: 1. Mild to moderate degenerative change of both hips with no acute fracture or malalignment. There is flattening and remodeling of the right humeral head. Benjamin Person MD Physical Exam GENERAL: Awake and following commands, NAD, on T-piece SKIN: Cool and dry. No generalized rash. Still edematous EYES: [place] conjunctiva. No petechia or hemorrhage. EARS, NOSE AND THROAT: Nose without bleeding or purulent nasal discharge. Dry oral mucosa NECK: Trachea midline. Supple and no meningeal signs. Trach site ok CARDIOVASCULAR: Regular rate and rhythm. Soft heart sounds. No murmurs RESPIRATORY: Coarse BS bilaterally, decreased at bases. ABDOMEN: Soft, mildly distended, PEG site ok. Mild tenderness, no guarding EXTREMITIES: No clubbing, cyanosis. Edema feet better; edema hands better : very swollen scrotum, has a lot of sediment in his cath tubing NEUROLOGICAL: awake and following commands PSYCHIATRIC: Calm and cooperative LINE: Lines with no evidence of infection Assessment & Plan Remarks IMPRESSION Fevers - better - had Kleb and Sten mal in sputum, S/P Rx - now with Pseudomonas - PSAE R to Imipenem Leukocytosis HCAP, Pseudomonas now - previously Kleb and Sten mal, S/P Rx with Bactrim Shock, resolved Large R retroperitoneal bleed, S/P multiple transfusions and S/P coiling of bleeders Elevated amylase and lipase, better Anemia, due to bleed, retroperitoneal MSSA sepsis, due to suppurative thrombophlebitis LUE, S/P I and D and excision of portion of cephalic vein Respiratory failure, has had several intubations - reintubated again 02/28, extubated 03/11 - reintubated again - S/P trach 03/14 Recent Rx 7 days high dose solumedrol for transverse myelitis Wu LE DVT has IVC filter placed 01/25 - ?hypercoagulable state Chronic kidney disease, worsening creatinine - shock and compression of ureter by hematoma Known DM, HTN Gouty tophi both hands and feet Diarrhea, C diff negative UTI, GNR - repeat UA better, but a lot of sediment in the urine Thrombocytopenia, no evidence of DIC, ?meds, ?infection, ?due to bleed - improving RECOMMENDATION Continue Fortaz IV - plan 7 days Will not give any further Vanco Follow CBC Monitor progress Dr Ean Becerril available if needed this Irene Edwards MD Mar 23, 2017 16:44
[2017-03-23] MEDS: RESP: ALBUTEROL 2.5 MG/IPRATROPIUM 0.5 MG NEB (SCH) NEB ×2 (16:57→20:47)
[2017-03-23] MEDS: ATORVASTATIN 10 MG TAB PO SCH (20:31)
[2017-03-24] VITALS (12 sets, daily range): BP systolic 126–162; BP diastolic 74–85; PULSE 66–96; RESP 15–23; TEMP 97.7–98.5; O2SAT 95–100
[2017-03-24] MEDS: HYDROCORTISONE SOD SUCCINATE 100 MG VIAL IV PUSH SCH ×4 (01:15→18:34)
[2017-03-24] MEDS: cefTAZidime INJ 2,000 MG in SODIUM CHLORIDE 0.9% INJ 100 ML IV SCH ×2 (01:17→14:45)
[2017-03-24] MEDS: oxyCODONE HCL ORAL CONC 5 MG/0.25 ML SYRINGE PO SCH ×6 (02:50→22:15)
[2017-03-24] MEDS: INSULIN NovoLIN REGULAR SUPPLEMENTAL SCALE SQ SCH ×6 (04:00→20:00)
[2017-03-24 04:43] LABS: HEMATOCRIT 29.6 % (39.0-51.0); MEAN CELL VOLUME 90.2 FL (80.0-100.0); MEAN CORPUSCULAR HEMOGLOBIN 28.3 PG (27.0-34.0); MEAN CORPUSCULAR HGB CONC 31.4 % (32.0-36.0); PLATELET COUNT 383 TH/MM3 (150-450); RED BLOOD COUNT 3.28 MIL/MM3 (4.50-5.90); RED CELL DISTRIBUTION WIDTH 16.4 % (11.6-17.2); REVIEW FLAG FINAL; WHITE BLOOD COUNT 19.9 TH/MM3 (4.0-11.0)
[2017-03-24] MEDS: RESP: ALBUTEROL 2.5 MG/IPRATROPIUM 0.5 MG NEB (SCH) NEB ×4 (05:06→22:02)
[2017-03-24 05:12] LABS: BICARBONATE 28.3 MEQ/L (21.0-32.0); MAGNESIUM 1.7 MG/DL (1.5-2.5); POTASSIUM 3.1 MEQ/L (3.5-5.1)
[2017-03-24] MEDS: POTASSIUM CHLOR 20 MEQ PREMIX 100 ML IV PRN ×2 (05:40→20:00)
[2017-03-24] MEDS: METOCLOPRAMIDE HCL 10 MG/2 ML VIAL IV PUSH SCH (05:41)
[2017-03-24] MEDS: INSULIN DETEMIR 100 UNITS/ML VIAL SQ SCH ×2 (09:00→21:03)
[2017-03-24] MEDS: SODIUM CHLORIDE 0.9% FLUSH 10 ML FLUSH IV FLUSH SCH ×3 (09:00→22:15)
[2017-03-24] MEDS: LACTOBACILLUS ACIDOPHILUS TAB PO SCH ×3 (10:18→18:33)
[2017-03-24] MEDS: FUROSEMIDE 40 MG/4 ML VIAL IV PUSH SCH ×2 (10:18→18:34)
[2017-03-24] MEDS: ATENOLOL 25 MG TAB PO SCH ×2 (10:18→22:14)
[2017-03-24] MEDS: amLODIPine BESYLATE 5 MG TAB PO SCH (10:19)
[2017-03-24] MEDS: LANSOPRAZOLE SOLUTAB 30 MG TAB NG SCH ×2 (10:19→21:03)
[2017-03-24] MEDS: CHLORHEXIDINE 0.12% (ORAL KIT) 15 ML CUP MT SCH ×2 (10:24→22:17)
[2017-03-24] MEDS: POTASSIUM CHLORIDE 20 MEQ PWD PACKET PO SCH ×2 (11:00→21:02)
--- NOTE | 2017-03-24 11:06 | HHI.CCPN ---
Subjective Remarks/Hospital Course Date of admission: 01/22 Date of critical care medicine consult 02/10 due to acute hypoxemic respiratory failure requiring emergent intubation 62-year-old male with a past medical history of hypertension, hyperlipidemia, diabetes mellitus, gout, uric acid kidney stones, kidney disease of unknown stage who originally presented to [facility] emergency department on 01/22 after a fall in which he sustained a right distal ulna fracture. He had been experiencing a gradual primarily lower extremity weakness as well as upper extremity weakness that was progressive. Neurology consult was obtained. MRI revealed no acute stroke. He had multifocal white matter changes. Tiny lacunar infarcts of the brainstem. Lumbar MRI report states L4-L5 disc protrusion with cetnral canal stenosis. Dr. Blackwell evaluated and states no cord compression on MRI C/T spine and recommended nonoperative management. Symptoms were felt to be consistent with transverse myelitis and he underwent Solumedrol 250 mg IV q6 hours 01/27-02/02. He also was found to have occlusive thrombus in the bilateral posterior tibial veins. Heparin was being avoided because he had traumatic lumbar puncture on 01/26 and 02/01. IVC filter was placed 01/25. He was undergoing physical therapy, reportedly making some improvements with plan to eventually discharged home with his son (max assist standing, and bed to chair per PT note). Apparently he had some vomiting the evening of 02/09 and additional vomiting on 02/10. He had a fever 102.8 on 02/09. Last recorded bowel movement was 02/03. Tonight he had acute onset of severe hypoxemia and respiratory distress. [facility] called and he was brought emergently to [facility] where his sats were 64% on 100% nonrebreather with mean arterial pressure 44. He was emergently intubated, CVL and art line placed. He is in septic shock. SUBJ: 02/11: Patient remains intubated sedated, critically ill. FiO2 reduced to 80% after increasing PEEP to 12. In severe septic shock Levophed at 16 mcg/m, vasopressin at 0.04 international units. D/W vascular surgery Dr. Enciso. He performed bedside Left upper extremity incision and debridement and excision of septic cephalic vein. 02/12: Remains intubated sedated profoundly septic, in shock on vasopressin and 7 mcg/min Levophed. FiO2 has improved to 45%, WBC count remains elevated with 20 ,000 white count significant left shift. Slight improvement in creatinine 2.9 urine output 750 ml 24 hours. 2-D echo shows LV ejection fraction 20-25%, no vegetation reported. Blood cultures 4 staph aureus. Wound culture pending 02/13: Remains critically ill but stable to improving. WBC count is down to 16, creatinine improving to 2.36. Off all pressors. Urine output also improving. 1.5L in 24 hours 02/14: Extubated 02/13. Tolerating well. WBC now down to 12.8. Creat improving 2.3 to 2. UO 3.4L. remains off all pressors. Was started on Precedex yesterday night for agitation, currently on 0.5 g per KG per hour. Chest x-ray shows left more than right air space disease 02/20/17 Re consult: 62-year-old male who was originally admitted for lower extremity weakness and found to have what was thought to be possible transverse myelitis. His hospital course his included a healthcare associated pneumonia, septic thrombophlebitis, DVT. He was most recently in the hospital floor where he had significant nausea and vomiting and diarrhea. His C. difficile test was recently negative. However, he has experienced worsening acute on chronic renal failure, hypotension, tachycardia, and severe hypoxemia. He did have a bout of vomiting earlier today, and his hospitalist attending suspects that he may have aspirated. He arrives by rapid response to the ICU with a nonrebreather in place in severe respiratory distress with SPO2 of 85%. I emergently intubate the patient, see separate procedure note for details. At this point the patient was hypotensive and tachycardic. He does have a history of an EF of 20%, however clinically he appears in florid septic shock. I placed central line and arterial line started vasopressors and gentle IV fluid resuscitation with 1 L of LR. Patient today was empirically broadened to vancomycin and Zosyn from his oxacillin which was initially treating MSSA bacteremia. He is recultured. Critical-care medicine is consulted to evaluate and manage his worsening multiorgan system failure and decompensated septic shock 02/21: Patient remains intubated sedated. Becomes anxious tachypnea on sedation lightening. Chest x-ray shows mild left lower lobe infiltrate. WBC count is slightly improved today from 23.2 t0 21. C Diff negative. UO adequate, creat slightly worsening. 1.57 today 02/22: Remains intubated sedated tolerated CPAP yesterday, plan is for EGD/ Colonscopy. WBC count back to normal. UO adequate. Creat stable 02/23: Tolerating CPAP trials following commands. Will do a spontaneous breathing trials. Status post EGD colonoscopy yesterday -Gastritis, esophagitis. Diverticulosis and multiple polyps. Urine output adequate but creatinine increasing to 1.7 with patient requiring multiple straight catheterization. We'll reinsert Sloan. 02/24: Breathing comfortably 24 hours after extubation. Protects airway well. 02/25: Excoriate bottom, will place rectal FMS. Start pureed diet. 02/26: Afebrile. Complaining of nausea and vomiting this afternoon. Increased stool output. Continue potassium replacement today. 02/27: 10 PM overnight, acutely hypotensive. Received 3 units PRBCs. Antibiotic coverage broadened to piperacillin/tazobactam, cortisol and 1 dose of vancomycin. Oxacillin drip currently on hold. Symptomatically, patient continues to vague abdominal pain/nausea vomiting which is unchanged for the past several days. Lipase elevated yesterday. Lactic acid normal. Troponin normal. Urinary retention after removal of Sloan. Straight catheter 1300. Cc 02/28: New diagnosis large retroperitoneal hematoma. Received 10 PRBC, 14 FFP, 2 platelets, 1 cryo-, 6 g calcium chloride, 2 is magnesium sulfate and 4 mg Bumex. CTA abdomen revealed possible arterial bleeds iliac, lumbar. Patient is currently on norepinephrine and epinephrine drips and possible need right nephrostomy tube placement due to large hematoma compressing ureter. Intra-abdominal bladder pressures are currently 13 03/01: Afebrile. Received 25 g albumin and 1 unit PRBCs overnight. Intra- abdominal bladder pressures currently 19. Currently on 3 micrograms per minute of norepinephrine. Yrncm-qy-cenw 1 out of 4 on 4 mics grams per kilogram per minute of cisatracurium. 03/02: Slightly hypothermic overnight. Hemoglobin appears to have stabilized. Troponin bump overnight likely secondary to demand ischemia from hypotension. Hemodynamically stable off all vasopressors. 03/03: Received 1 PRBCs overnight. 3 units currently. Off all vasopressors. Likely rebleeding. Stool is dark. 03/04: Remains unstable. Ventilator dependent. 03/05: afebrile. hgb stable. 03/06: bumex drip started overnight. good uop after bumex initiated. still grossly volume overloaded. Cr downtrending. more awake with transition to propofol. still too volume overloaded to tolerate extubation. hgb stable. 03/07: Afebrile. Tolerating tube feeds at goal with Nepro. Positive BM. On low-dose fentanyl and propofol drips. Potassium currently being replaced. 03/08: Eyes will open on ventilator. Afebrile. Tolerating tube feeding. Failed PSV trial yesterday due to apnea. 03/09: Following commands. Tmax 101. Tolerating tube feeding. One hour PSV trial yesterday. Currently tolerating well so far today 1.5 hours 03/10: Low-grade temperatures. Tolerating PSV trial 10 hours yesterday. Currently at 5/5 at 35%. We'll probably attempt extubation a.m. after hemodialysis. 03/11: Extubated currently in 4 L nasal cannula. Thick secretions thick clear with cough. Currently afebrile. Tolerating diet previously. 03/12: Sleepy this morning but arouses. Following commands. Refusing diet at the present time. On 2 L nasal cannula. 03/13: Patient reintubated last night for worsening respiratory status. Currently sedated on mechanical ventilation. Became hypotensive following intubation and is on Levophed 20 mics per minute. 03/14: Sedated, orally intubated on mech vent at the time of my evaluation this AM, subsequently underwent perc trach placement. Remains on levophed for pressor support. Transfused 1 unit PRBCs today. Persisten 03/15: Trach site clean, dry. CXR with bilateral basilar infiltrates. 03/16: Pulmonary congestion persists. Clinical condition not improving. Prognosis becoming increasingly bleak. 03/17: Glucose intolerance worse. No improvement in neurological function. 03/18: Remains on mechanical ventilation via tracheostomy. Off pressors now. Neurologic status remains poor. 03/19: Drowsy, encephalopathic, arousable. On mechanical ventilation via tracheostomy. Levemir increased for hyperglycemia today. Remains off pressors 03/20: More awake, moves both upper extremities. On mechanical ventilation via tracheostomy. Daily C Pap trials ongoing. 03/21: Awake and alert. On mechanical ventilation via tracheostomy. Opens and closes eyes on command. 03/22: Awake and alert. Tolerated T PIECE for 7 hours yesterday. Dialyzed today. 03/23: Currently on T piece trial. Status post dialysis yesterday on 3 L. Awake and alert. Wants to eat. Subjective 03/24: Currently afebrile. Hemodialysis catheter discontinued yesterday from left IJ. Persistent leukocytosis noted. Potassium will be replaced. Furosemide 40 mg twice a day IV to 20 mg IV twice a day Objective Vital Signs Date Time Temp Pulse Resp B/P (MAP) Pulse Ox O2 Delivery O2 Flow Rate FiO2 03/24/17 08:58 100 T-piece 5.00 28 03/24/17 06:00 66 03/24/17 04:00 98.5 16 130/74 (92) Intake and Output 03/24/17 03/24/17 03/25/17 08:00 16:00 00:00 Intake Total 594 ml Output Total 2150 ml Balance -1556 ml Result Diagram: 03/24/17 0411 03/24/17 041 Other Results Microbiology Date/Time Source Procedure Growth Status 03/08/17 19:49 Blood Peripheral Aerobic Blood Culture - Final NO GROWTH IN 5 DAYS Complete 03/08/17 19:49 Blood Peripheral Anaerobic Blood Culture - Final NO GROWTH IN 5 DAYS Complete 02/01/17 09:55 Cerebral Spinal Fluid Lumbar Puncture Fungal Smear - Final NO FUNGAL ELEMENTS SEEN. Complete 02/01/17 09:55 Cerebral Spinal Fluid Lumbar Puncture Fungal Culture - Final NO GROWTH IN 4 WEEKS Complete 02/17/17 05:55 Stool Stool Stool Occult Blood (GREGORY) - Final HEMOCCULT POSITIVE Complete 03/13/17 09:20 Sputum Endotracheal Gram Stain - Final Complete 03/13/17 09:20 Sputum Culture - Final Pseudomonas Aeruginosa Complete 02/27/17 08:32 Urine Catheterized Urine Urine Culture - Final Klebsiella Pneumoniae Esbl Pos Complete 02/11/17 09:10 Abscess Arm Acid Fast Stain - Final NO ACID FAST BACILLI SEEN Resulted 02/11/17 09:10 Abscess Arm Mycobacterial Culture - Preliminary NO GROWTH IN 5 WEEKS Resulted Imaging Last Impressions Chest X-Ray 03/14/17 0000 Signed Impressions: Service Date/Time: Tuesday, March 14, 2017 13:41 - CONCLUSION: 1. Tracheostomy in good position. 2. Left lower lung infiltrates and left pleural effusion. Candido Patton MD Aortography 02/28/17 0000 Signed Impressions: Service Date/Time: Tuesday, February 28, 2017 08:01 - CONCLUSION: 1. Active hemorrhage from distal right lateral sacral and iliolumbar branches successfully coil and Gelfoam embolized, as above. Juan Bhakta MD Abdomen/Pelvis CT 02/28/17 0000 Signed Impressions: Service Date/Time: Tuesday, February 28, 2017 06:51 - CONCLUSION: 1. The right retroperitoneal hematoma has increased in size, as above. There are 2 serpiginous arterially enhancing structures visualized, one in the right psoas muscle and another extending into the hematoma at the right iliac fossa. These could represent sites of continued active bleeding. 2. Stable moderate size left and small right pleural effusion with associated compressive atelectasis. 3. Stable small volume of free fluid in the abdomen and pelvis. There is also anasarca. The findings concerning the retroperitoneal hematoma were discussed with Dr. Aguiar via telephone at approximately 7: 10 AM on 02/28/2017. Angelo Allen MD Chest CT 02/27/17 0000 Signed Impressions: Service Date/Time: Monday, February 27, 2017 18:12 - CONCLUSION: 1. Bilateral pleural effusions with bibasilar atelectasis, left greater than right. Tom Sanchez MD Abdomen X-Ray 02/26/17 0000 Signed Impressions: Service Date/Time: Sunday, February 26, 2017 14:52 - CONCLUSION: 1. Nonobstructive bowel gas pattern. Juan Bhakta MD Upper Extremity Ultrasound 02/10/17 0000 Signed Impressions: Service Date/Time: Friday, February 10, 2017 18:46 - CONCLUSION: Occlusive thrombus in the cephalic and basilic veins. Benjamin Person MD Lung Scan- Nuclear Medicine 02/10/17 0000 Signed Impressions: Service Date/Time: Friday, February 10, 2017 22:17 - CONCLUSION: Low probability pulmonary embolism. Candido Patton MD Head CT 02/10/17 0000 Signed Impressions: Service Date/Time: Friday, February 10, 2017 23:51 - CONCLUSION: Negative noncontrast CT brain. Candido Patton MD Wrist X-Ray 02/06/17 0000 Signed Impressions: Service Date/Time: Monday, February 06, 2017 12:50 - CONCLUSION: Minimally displaced distal radius and ulnar fractures. Armando Dodd MD Lumbar Puncture Fluoroscopy 02/01/17 0000 Signed Impressions: Service Date/Time: January 09:35 - CONCLUSION: Uncomplicated fluoroscopically guided lumbar puncture. CSF was clear. Nabeel Peralta MD Head Magnetic Resonance Angiography 01/27/17 0000 Signed Impressions: Service Date/Time: Friday, January 27, 2017 10:33 - CONCLUSION: No intracranial vascular abnormality is identified. There is no aneurysm visualized. Angelo Allen MD IVC Filter Placement X-Ray 01/25/17 0000 Signed Impressions: Service Date/Time: January 10:29 - CONCLUSION: Uncomplicated inferior vena cava filter placement as above. Yung Fowler MD Thoracic Spine MRI 01/24/17 0000 Signed Impressions: Service Date/Time: Tuesday, January 24, 2017 22:29 - CONCLUSION: 1. Mild degenerative spondylosis most prominently at T11-L1 with slight effacement of the anterior thecal sac and left lateral recess. No significant neural foraminal stenosis. 2. No acute fracture. Juan Bhakta MD Renal Ultrasound 01/23/17 0000 Signed Impressions: Service Date/Time: Monday, January 23, 2017 08:53 - CONCLUSION: 1. Evidence of chronic parenchymal disease of both kidneys. No obstructive uropathy or other acute abnormality demonstrated. 2. Trace ascites, nonspecific. Angelo Garrido MD Lumbar Spine MRI 01/23/17 0000 Signed Impressions: Service Date/Time: Monday, January 23, 2017 17:01 - CONCLUSION: 1. At L4-5 is a broad-based disc protrusion with severe central canal and lateral recess stenosis and flattening of the exiting right L4 nerve root. 2. L5-S1 there is a disc protrusion and moderate stenosis with flattening of the exiting L5 nerve roots bilaterally. 3. At L3-4 there is a moderate to severe central stenosis and lateral recess stenosis with mild foraminal stenosis. 4. No acute fracture or spondylolisthesis. Trace Holloway MD Lower Extremity Ultrasound 01/23/17 0000 Signed Impressions: Service Date/Time: Monday, January 23, 2017 09:53 - CONCLUSION: Bilateral focal lower extremity DVT involving the posterior tibial veins. Angelo Garrido MD Cervical Spine MRI 01/23/17 0000 Signed Impressions: Service Date/Time: Monday, January 23, 2017 17:01 - CONCLUSION: 1. Multilevel cervical spine degenerative changes as above. 2. Mild degrees of spinal stenosis at C3/C4-C6/C7. No cord compression or cord signal abnormality. 3. Age indeterminate left paracentral/foraminal disc protrusion at C6/C7. 4. Multilevel foraminal stenosis, most severe on the left at C6/C7. Please see individual levels above. 5. No fracture or subluxation of the cervical spine. Angelo Garrido MD Brain MRI 01/23/17 0000 Signed Impressions: Service Date/Time: Monday, January 23, 2017 17:01 - CONCLUSION: 1. No acute stroke or other acute intracranial abnormality demonstrated. 2. Moderate severity chronic white matter changes, nonspecific but most likely related to chronic small vessel disease. 3. Few scattered tiny lacunar infarcts of the brainstem. 4. Given the findings are not entirely specific, clinical evaluation for possible multiple sclerosis recommended. Angelo Garrido MD Knee X-Ray [id number]/22/[id number] Signed Impressions: Service Date/Time: Sunday, January 22, 2017 21:17 - CONCLUSION: 1. Evidence of moderate to large joint effusion. 2. No acute fracture or malalignment. 3. Mild 3 compartment osteoarthritic change. Benjamin Person MD Hip and Pelvis X-Ray [id number]/[id number] Signed Impressions: Service Date/Time: Sunday, January 22, 2017 21:10 - CONCLUSION: 1. Mild to moderate degenerative change of both hips with no acute fracture or malalignment. There is flattening and remodeling of the right humeral head. Benjamin Person MD Objective Remarks GENERAL: 62-year-old male, resting in bed, on mechanical ventilation via tracheostomy HEENT: Normocephalic. Atraumatic. Pupils equal, round, reactive. NECK: Tracheostomy in place. Obese. CHEST: on T piece via tracheostomy, air entry decreased bilaterally at bases, persistent scattered rhonchi bilaterally, no wheezing CARDIOVASCULAR: S1-S2 regular, no gallop or murmur ABDOMEN distended. No rigidity. Umbilical hernia is reducible. No guarding. PEG tube in place : Positive scrotal edema MUSCULOSKELETAL: Pulses 2+. 1+ bilateral upper and lower extremity edema. Clean white Bandage/discontinued wound VAC on left upper extremity NEUROLOGICAL: Awake and alert, has spontaneous eye opening. Opens and closes eyes on command, on T piece via tracheostomy.. Moves 4 limbs weakly to stimulation. Procedures IVC filter placement 01/25/2017 LP 01/26/2017 Vascular Central Line Catheter: Yes Assessment to: Remove Date of Insertion: Mar 03, 2017 Line: Central Venous Catheter Side: Right Location: Internal, Jugular A/P Problem List: (1) Septic shock ICD Code: A41.9 - Sepsis, unspecified organism; R65.21 - Severe sepsis with septic shock Status: Acute (2) Acute respiratory failure ICD Code: J96.00 - Acute respiratory failure, unspecified whether with hypoxia or hypercapnia Status: Acute (3) Thrombophlebitis arm ICD Code: I80.8 - Phlebitis and thrombophlebitis of other sites (4) Aspiration pneumonia ICD Code: J69.0 - Pneumonitis due to inhalation of food and vomit Status: Acute (5) Atelectasis of left lung ICD Code: J98.11 - Atelectasis Status: Acute (6) Quadriparesis ICD Code: G82.50 - Quadriplegia, unspecified Status: Acute (7) DVT (deep venous thrombosis) ICD Code: I82.409 - Acute embolism and thrombosis of unspecified deep veins of unspecified lower extremity (8) Altered mental status ICD Code: R41.82 - Altered mental status, unspecified Status: Acute (9) CKD (chronic kidney disease) stage 3, GFR 30-59 ml/min ICD Code: N18.3 - Chronic kidney disease, stage 3 (moderate) Status: Chronic (10) Acute renal failure ICD Code: N17.9 - Acute kidney failure, unspecified Status: Acute (11) Diabetes mellitus ICD Code: E11.9 - Type 2 diabetes mellitus without complications Status: Chronic (12) Distal end of ulna fracture, closed ICD Code: S52.609A - Unspecified fracture of lower end of unspecified ulna, initial encounter for closed fracture Status: Acute (13) Gout ICD Code: M10.9 - Gout, unspecified Status: Chronic Assessment and Plan NEURO/PSYCH: Acute metabolic encephalopathy- persistent Quadriparesis secondary to suspected transverse myelitis Recurrent falls Pain secondary to retroperitoneal hematoma. Suspected transverse myelitis. Received methylprednisolone 250 mg IV every 6 hours 01/27-02/02, started back on hydrocortisone 02/21/17, initially tapering to 50 mg IV every 8 hours starting received 1 dose at 2100 prior to becoming hypotensive. weaning hydrocortisone taper and stopped 03/09. Resumed hydrocortisone 50mg IV Q6hrly on 03/14 as patient became hypotensive following intubation on 03/13 requiring levophed. Continue 50 mg IV every 6 hours LP 01/26 and 02/01. CSF culture negative 01/26, 02/01 Oligoclonal bands negative. CSF/serum IgG index is not elevated. VDRL nonreactive. Cryptococcal antigen negative. Brain MRI 01/23 no acute stroke. Few scattered lacunar infarcts of the brainstem. Moderate chronic white matter changes. MRI cervical/thoracic spine- mild spinal stenosis C3/C4 to C6/C7. No cord compression. RPR negative Neurology has been following, Dr. Crenshaw. Repeat CT brain 02/10 - negative Continue PT/OT Continue oxycodone 10 mg every 4 hours scheduled RESP: Acute hypoxemic respiratory failure Healthcare associated pneumonia/Aspiration Pneumonia Right-sided chest tube placed for pleural effusion. continue mechanical ventilation, vent bundle, PSV and T piece trials as tolerated -On T piece 24 hours. Albuterol/ipratropium aerosols every 6 hours with albuterol aerosols every 2 hours prn VQ scan 02/10 low probability for PE. CT chest 02/10 - left lower lobe collapse and consolidation. CT chest 02/27 revealed right greater than left pleural effusions. Extubated 02/23. Intubated 02/28. Extubated 03/11, Reintubated on 03/13. Right-sided chest tube placement 02/28 associate vice president, removed 03/05. Failed attempt to wean successfully due to volume overload and multiple organ failure. underwent perc tracheostomy 03/14. CV: Severe sepsis - resolved. Systolic heart failure likely chronic with ejection fraction 20-25% Hyperlipidemia History of hypertension Mild TR Sinus tachycardia Elevated troponin likely type II demand ischemia Restarted on Levophed on 03/09 for following intubation, titrated off after starting hydrocortisone. Started hydrocortisone stress dose on 03/14 (as patient has been on steroids and was just tapered off on 03/09.) Patient has on hypotensive twice when attempting to wean off stress dose hydrocortisone in the past. Currently on atenolol 25 mg twice a day. Continue amlodipine 5 mg daily As needed Nitropaste, labetalol and hydralazine for hypertension Atorvastatin 10 mg by mouth daily for dyslipidemia. Troponin 0.[address]-T changes. 2-D echocardiogram 01/11 revealed EF 20-25%. Mild TR. Pulmonary arterial pressures were normal around 20 Troponin 6.55 on 03/02. Likely will need stress test of heart once stable. Cannot anticoagulate due to retroperitoneal hematoma at the present time Currently on furosemide 40 mg IV twice a day per nephrology will be decreased to 20 mg IV.. GI: Large right retroperitoneal hematoma Erosive esophagitis Adematous/hyperplastic colon polyps Severe acute protein calorie malnutrition Nausea/vomiting - resolved. Diarrhea Gastritis Diverticulosis Internal and external hemorrhoids Hiatal hernia Elevated lipase 02/27 CT chest/abdomen and pelvis - 9.4 x 7.5 renal and 16 x 12 cm right psoas muscle hematoma. Fluid around liver and spleen. Right-sided nephrolithiasis CTA abdomen 02/28 - possible blushing around iliac/lumbar vessels Discussed with IR. s/p attempted embolization CT abdomen and pelvis 02/10 atrophic left kidney. Bilateral inguinal hernias fat- containing. Nonobstructing 12 mm right kidney stone repeat CT abd/pelvis did not show evidence of obstruction. patient clinically has been having diarrhea (c. diff negative 02/19). also with nausea/vomiting of unclear etiology. EGD/Colonoscopy-02/22/17 showed gastritis esophagitis, hiatal hernia, diverticulosis and multiple polyps in descending colon and sigmoid which were snared biopsied. Biopsy pending Dr. Lewis consulted for intervention if needed for elevated IAP. will continue to check as needed Status post PEG tube placement by consulted Previously on on tube feeds with Nepro goal Lansoprazole 30 mg twice a day for GI prophylaxis Discontinued metoclopramide 5 mill grams IV every 8 hours today FEN/RENAL: Acute kidney injury in the setting of Chronic kidney disease stage 3-4 History of uric acid kidney stones with prior stent BPH Nonfunctioning left kidney Acute intravascular volume overload Hypokalemia Sloan placed due to urinary retention and worsening creatinine. Monitor intake and output q1hr. Monitor electrolytes. RIOS/SPEP negative. 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 Recommended nephrostomy tube if obstruction Nephrology consulted, hemodialysis per nephrology. Making urine. Due to acute illness holding tamsulosin 0.4 mg by mouth daily for BPH ICU electrolyte replacement protocol Receiving 80 mEq KCl today. Repeat in a.m. ID: Septic shock- resolved. Abscess and Suppurative thrombophlebitis left upper extremity MSSA bacteremia Klebsiella UTI ESBL positive Acute aspiration pneumonia/HCAP Previously treated with Bactrim, ertapenem, intermittent vancomycin, nafcillin Blood cultures 2, UA ESBL positive Klebsiella UTI Sputum 03/14 - Pseudomonas came back resistant to imipenem Repeat blood cultures 2 and sputum 03/08 pending. Urine negative. Switched from meropenem to ceftazidime on 03/19, vancomycin IV 1 dose given on 03/19 and 03/22. ID following-Dr. Edwards. HEME: Acute blood loss anemia DVT, bilateral posterior tibial vein, IVC filter Septic thrombophlebitis with occlusive thrombus mid cephalic and basilic vein side Received 10 PRBC, 14 FFP, 2 platelets, 1 cryo-02/28 Past 24 hours received 3 units PRBCs Serial hemoglobins every 6 hours Recheck coags Ultrasound 01/23/17 - Bilateral lower extremity with occlusive posterior tibial vein DVTs. Heparin was initially started for DVT but was placed on hold due to LP with suspected traumatic tap. Currently holding full anticoagulation with enoxaparin 100 mg IV twice a day due to anemia as of 02/26 IVC filter was placed 01/25/17. Ultrasound LUE 02/10 occlusive thrombus mid cephalic vein, basilic vein.s. Transfuse 3 units PRBCs 02/27 Transfuse 2 units PRBCs 03/01. transfused 1 unit PRBCs on 03/14 ENDO: Diabetes mellitus Hypoglycemia History of prior adrenal insufficiency with shock Gout EGD colonoscopy completed 02/22. gastritis and esophagitis, colon polyps Started Hydrocortisone 100 mg every 8 hours 02/21/17 (Recent high dose steroids use now hypotensive, hypoglycemic), steroids had been tapered off. Resumed stress dose steroids on 03/16 as patient back on Levophed for pressor support after intubation. Continue at 50 mg IV every 6 hours Accu-Cheks to maintain euglycemia Novulin R every 4 hours. Low Regimen Currently on insulin detemir 25 units twice a day for hyperglycemia which is probably worse since starting stress dose steroids. MSK: Right distal ulna fracture. Dr. Nathan with orthopedics has evaluated and recommended nonoperative management. Right wrist splint in place. PROPH: Lansoprazole 30 mg twice a day twice a day for stress ulcer prophylaxis. Has IVC filter. Therapeutic enoxaparin currently on hold for retroperitoneal hematoma ACCESS: right IJ CVL placed 03/03-03/20. A left IJ hemodialysis catheter placed 03/01 - 03/23. Left femoral A line placed 03/14 - discontinued 03/19 Level II follow-up Problem Qualifiers (1) Aspiration pneumonia: (2) DVT (deep venous thrombosis): Qualified Codes: I82.443 - Acute embolism and thrombosis of tibial vein, bilateral (3) Acute renal failure: Qualified Codes: N17.9 - Acute kidney failure, unspecified (4) Diabetes mellitus: (5) Gout: Janes Aguiar MD Mar 24, 2017 11:06
[2017-03-24] MEDS: MAGNESIUM SULFATE 1 GM PREMIX 100 ML IV SCH ×2 (12:00→14:45)
[2017-03-24] MEDS: SODIUM CHLOR 0.9% 1000 ML INJ 1,000 ML IV SCH (13:00)
--- NOTE | 2017-03-24 14:58 | HHI.NPPN ---
Subjective History of Present Illness 61-year-old with history of urinary stone Additional Remarks Patient had trach on trach collar O2 sitting in chair, clinically same. Review of Systems General Constitutional: Fatigue Objective Data Data Vital Signs Date Time Temp Pulse Resp B/P (MAP) Pulse Ox O2 Delivery O2 Flow Rate FiO2 03/24/17 08:58 100 T-piece 5.00 28 03/24/17 07:00 100 T-Piece 28 03/24/17 06:00 66 03/24/17 05:07 100 T-piece 6.00 28 03/24/17 04:00 68 03/24/17 04:00 98.5 82 16 130/74 (92) 98 03/24/17 02:00 68 03/24/17 00:00 97.9 87 22 139/77 (97) 96 03/24/17 00:00 69 03/23/17 22:00 74 03/23/17 20:50 97 T-piece 6.00 28 03/23/17 20:00 77 03/23/17 20:00 97.7 87 17 149/72 (97) 100 03/23/17 20:00 100 T-Piece 28 03/23/17 18:00 75 03/23/17 16:00 68 03/23/17 16:00 98.4 68 16 165/82 (109) 100 -: 03/24/17 0411 03/24/17 0411 Physical Exam General Appearance: Pale Eyes Eye Exam: Pupils Equal Throat Throat Exam: Oral Mucosa Borger & Moist Neck Neck Exam: Neck Supple Pulmonary Resp Exam: Clear Bilaterally Cardiology CV Exam: Normal Sinus Rhythm Gastrointestinal/Abdomen GI Exam: Non-Tender, Distended Extremeties Extremities Exam: Moderate Edema, Pitting Edema Neurologic Neuro Exam: Awake Assessment/Plan Problem List: (1) Acute renal failure ICD Codes: N17.9 - Acute kidney failure, unspecified Status: Acute Plan: Patient developed Hypotension,sepsis staph aureus respiratory failure and increase WBC. 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 Avoid Nephrotoxins. (2) CKD (chronic kidney disease) stage 3, GFR 30-59 ml/min ICD Codes: N18.3 - Chronic kidney disease, stage 3 (moderate) Status: Chronic Plan: Ultrasound revealed chronic kidney disease there is no kidney stones (3) Diabetes ICD Codes: E11.9 - Type 2 diabetes mellitus without complications Plan: Continue to monitor (4) Distal end of ulna fracture, closed ICD Codes: S52.609A - Unspecified fracture of lower end of unspecified ulna, initial encounter for closed fracture Status: Acute Plan: Orthopedic is following Problem Qualifiers (1) Acute renal failure: Qualified Codes: N17.9 - Acute kidney failure, unspecified Aicha Leonard MD Mar 24, 2017 14:58
[2017-03-24] MEDS: ATORVASTATIN 10 MG TAB PO SCH (21:04)
[2017-03-25] VITALS (9 sets, daily range): BP systolic 126–177; BP diastolic 67–91; PULSE 72–98; RESP 13–18; TEMP 97.8–98.6; O2SAT 96–99
[2017-03-25] MEDS: cefTAZidime INJ 2,000 MG in SODIUM CHLORIDE 0.9% INJ 100 ML IV SCH ×3 (00:40→21:56)
[2017-03-25] MEDS: HYDROCORTISONE SOD SUCCINATE 100 MG VIAL IV PUSH SCH ×4 (00:40→18:39)
[2017-03-25] MEDS: oxyCODONE HCL ORAL CONC 5 MG/0.25 ML SYRINGE PO SCH ×6 (01:04→21:11)
[2017-03-25] MEDS: INSULIN NovoLIN REGULAR SUPPLEMENTAL SCALE SQ SCH ×6 (04:00→20:00)
[2017-03-25] MEDS: RESP: ALBUTEROL 2.5 MG/IPRATROPIUM 0.5 MG NEB (SCH) NEB ×4 (04:10→21:51)
[2017-03-25] MEDS: SODIUM CHLORIDE 0.9% FLUSH 10 ML FLUSH IV FLUSH SCH ×3 (07:47→21:12)
[2017-03-25] MEDS: CHLORHEXIDINE 0.12% (ORAL KIT) 15 ML CUP MT SCH ×2 (07:56→20:00)
[2017-03-25] MEDS: LACTOBACILLUS ACIDOPHILUS TAB PO SCH ×3 (08:40→18:39)
[2017-03-25] MEDS: amLODIPine BESYLATE 5 MG TAB PO SCH (08:40)
[2017-03-25] MEDS: LANSOPRAZOLE SOLUTAB 30 MG TAB NG SCH ×2 (08:40→21:12)
[2017-03-25] MEDS: FUROSEMIDE 40 MG/4 ML VIAL IV PUSH SCH ×2 (08:40→18:38)
[2017-03-25] MEDS: ATENOLOL 25 MG TAB PO SCH ×2 (08:41→21:55)
[2017-03-25] MEDS: INSULIN DETEMIR 100 UNITS/ML VIAL SQ SCH ×2 (08:41→21:11)
--- NOTE | 2017-03-25 12:20 | HHI.NPPN ---
Subjective History of Present Illness 61-year-old with history of urinary stone Additional Remarks Patient had trach on trach collar O2 , mild SOB, not in distress. Review of Systems General Constitutional: Fatigue Objective Data Data Vital Signs Date Time Temp Pulse Resp B/P (MAP) Pulse Ox O2 Delivery O2 Flow Rate FiO2 03/25/17 09:15 99 T-piece 5.00 21 03/25/17 08:00 97.8 82 15 164/79 (107) 96 03/25/17 07:00 100 T-Piece 28 03/25/17 04:00 98.2 98 17 148/86 (106) 98 03/25/17 00:00 98.6 78 15 126/67 (86) 98 03/24/17 22:03 100 T-piece 28 03/24/17 22:00 78 03/24/17 20:00 100 T-Piece 28 03/24/17 20:00 68 03/24/17 20:00 97.7 78 19 126/78 (94) 100 03/24/17 16:00 97.9 96 23 127/75 (92) -: 03/24/17 0411 03/24/17 0411 Physical Exam General Appearance: Pale Eyes Eye Exam: Pupils Equal Throat Throat Exam: Oral Mucosa [place] & Moist Neck Neck Exam: Neck Supple Pulmonary Resp Exam: Clear Bilaterally Cardiology CV Exam: Normal Sinus Rhythm Gastrointestinal/Abdomen GI Exam: Non-Tender, Distended Extremeties Extremities Exam: Moderate Edema, Pitting Edema Neurologic Neuro Exam: Awake Assessment/Plan Problem List: (1) Acute renal failure ICD Codes: N17.9 - Acute kidney failure, unspecified Status: Acute Plan: Patient developed Hypotension,sepsis staph aureus respiratory failure and increase WBC. 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 No new BMP, Started on Lasix yesterday. Follow BMP. (2) CKD (chronic kidney disease) stage 3, GFR 30-59 ml/min ICD Codes: N18.3 - Chronic kidney disease, stage 3 (moderate) Status: Chronic Plan: Ultrasound revealed chronic kidney disease there is no kidney stones (3) Diabetes ICD Codes: E11.9 - Type 2 diabetes mellitus without complications Plan: Continue to monitor (4) Distal end of ulna fracture, closed ICD Codes: S52.609A - Unspecified fracture of lower end of unspecified ulna, initial encounter for closed fracture Status: Acute Plan: Orthopedic is following Problem Qualifiers (1) Acute renal failure: Qualified Codes: N17.9 - Acute kidney failure, unspecified Aicha Leonard MD Mar 25, 2017 12:20
--- NOTE | 2017-03-25 12:49 | HHI.CCPN ---
Subjective Remarks/Hospital Course Date of admission: 01/22 Date of critical care medicine consult 02/10 due to acute hypoxemic respiratory failure requiring emergent intubation 62-year-old male with a past medical history of hypertension, hyperlipidemia, diabetes mellitus, gout, uric acid kidney stones, kidney disease of unknown stage who originally presented to [facility] emergency department on 01/22 after a fall in which he sustained a right distal ulna fracture. He had been experiencing a gradual primarily lower extremity weakness as well as upper extremity weakness that was progressive. Neurology consult was obtained. MRI revealed no acute stroke. He had multifocal white matter changes. Tiny lacunar infarcts of the brainstem. Lumbar MRI report states L4-L5 disc protrusion with cetnral canal stenosis. Dr. Blackwell evaluated and states no cord compression on MRI C/T spine and recommended nonoperative management. Symptoms were felt to be consistent with transverse myelitis and he underwent Solumedrol 250 mg IV q6 hours 01/27-02/02. He also was found to have occlusive thrombus in the bilateral posterior tibial veins. Heparin was being avoided because he had traumatic lumbar puncture on 01/26 and 02/01. IVC filter was placed 01/25. He was undergoing physical therapy, reportedly making some improvements with plan to eventually discharged home with his son (max assist standing, and bed to chair per PT note). Apparently he had some vomiting the evening of 02/09 and additional vomiting on 02/10. He had a fever 102.8 on 02/09. Last recorded bowel movement was 02/03. Tonight he had acute onset of severe hypoxemia and respiratory distress. [facility] called and he was brought emergently to [facility] where his sats were 64% on 100% nonrebreather with mean arterial pressure 44. He was emergently intubated, CVL and art line placed. He is in septic shock. SUBJ: 02/11: Patient remains intubated sedated, critically ill. FiO2 reduced to 80% after increasing PEEP to 12. In severe septic shock Levophed at 16 mcg/m, vasopressin at 0.04 international units. D/W vascular surgery Dr. Enciso. He performed bedside Left upper extremity incision and debridement and excision of septic cephalic vein. 02/12: Remains intubated sedated profoundly septic, in shock on vasopressin and 7 mcg/min Levophed. FiO2 has improved to 45%, WBC count remains elevated with 20 ,000 white count significant left shift. Slight improvement in creatinine 2.9 urine output 750 ml 24 hours. 2-D echo shows LV ejection fraction 20-25%, no vegetation reported. Blood cultures 4 staph aureus. Wound culture pending 02/13: Remains critically ill but stable to improving. WBC count is down to 16, creatinine improving to 2.36. Off all pressors. Urine output also improving. 1.5L in 24 hours 02/14: Extubated 02/13. Tolerating well. WBC now down to 12.8. Creat improving 2.3 to 2. UO 3.4L. remains off all pressors. Was started on Precedex yesterday night for agitation, currently on 0.5 g per KG per hour. Chest x-ray shows left more than right air space disease 02/20/17 Re consult: 62-year-old male who was originally admitted for lower extremity weakness and found to have what was thought to be possible transverse myelitis. His hospital course his included a healthcare associated pneumonia, septic thrombophlebitis, DVT. He was most recently in the hospital floor where he had significant nausea and vomiting and diarrhea. His C. difficile test was recently negative. However, he has experienced worsening acute on chronic renal failure, hypotension, tachycardia, and severe hypoxemia. He did have a bout of vomiting earlier today, and his hospitalist attending suspects that he may have aspirated. He arrives by rapid response to the ICU with a nonrebreather in place in severe respiratory distress with SPO2 of 85%. I emergently intubate the patient, see separate procedure note for details. At this point the patient was hypotensive and tachycardic. He does have a history of an EF of 20%, however clinically he appears in florid septic shock. I placed central line and arterial line started vasopressors and gentle IV fluid resuscitation with 1 L of LR. Patient today was empirically broadened to vancomycin and Zosyn from his oxacillin which was initially treating MSSA bacteremia. He is recultured. Critical-care medicine is consulted to evaluate and manage his worsening multiorgan system failure and decompensated septic shock 02/21: Patient remains intubated sedated. Becomes anxious tachypnea on sedation lightening. Chest x-ray shows mild left lower lobe infiltrate. WBC count is slightly improved today from 23.2 t0 21. C Diff negative. UO adequate, creat slightly worsening. 1.57 today 02/22: Remains intubated sedated tolerated CPAP yesterday, plan is for EGD/ Colonscopy. WBC count back to normal. UO adequate. Creat stable 02/23: Tolerating CPAP trials following commands. Will do a spontaneous breathing trials. Status post EGD colonoscopy yesterday -Gastritis, esophagitis. Diverticulosis and multiple polyps. Urine output adequate but creatinine increasing to 1.7 with patient requiring multiple straight catheterization. We'll reinsert Sloan. 02/24: Breathing comfortably 24 hours after extubation. Protects airway well. 02/25: Excoriate bottom, will place rectal FMS. Start pureed diet. 02/26: Afebrile. Complaining of nausea and vomiting this afternoon. Increased stool output. Continue potassium replacement today. 02/27: 10 PM overnight, acutely hypotensive. Received 3 units PRBCs. Antibiotic coverage broadened to piperacillin/tazobactam, cortisol and 1 dose of vancomycin. Oxacillin drip currently on hold. Symptomatically, patient continues to vague abdominal pain/nausea vomiting which is unchanged for the past several days. Lipase elevated yesterday. Lactic acid normal. Troponin normal. Urinary retention after removal of Sloan. Straight catheter 1300. Cc 02/28: New diagnosis large retroperitoneal hematoma. Received 10 PRBC, 14 FFP, 2 platelets, 1 cryo-, 6 g calcium chloride, 2 is magnesium sulfate and 4 mg Bumex. CTA abdomen revealed possible arterial bleeds iliac, lumbar. Patient is currently on norepinephrine and epinephrine drips and possible need right nephrostomy tube placement due to large hematoma compressing ureter. Intra-abdominal bladder pressures are currently 13 03/01: Afebrile. Received 25 g albumin and 1 unit PRBCs overnight. Intra- abdominal bladder pressures currently 19. Currently on 3 micrograms per minute of norepinephrine. [id number]-[id number] 1 out of 4 on 4 mics grams per kilogram per minute of cisatracurium. 03/02: Slightly hypothermic overnight. Hemoglobin appears to have stabilized. Troponin bump overnight likely secondary to demand ischemia from hypotension. Hemodynamically stable off all vasopressors. 03/03: Received 1 PRBCs overnight. 3 units currently. Off all vasopressors. Likely rebleeding. Stool is dark. 03/04: Remains unstable. Ventilator dependent. 03/05: afebrile. hgb stable. 03/06: bumex drip started overnight. good uop after bumex initiated. still grossly volume overloaded. Cr downtrending. more awake with transition to propofol. still too volume overloaded to tolerate extubation. hgb stable. 03/07: Afebrile. Tolerating tube feeds at goal with Nepro. Positive BM. On low-dose fentanyl and propofol drips. Potassium currently being replaced. 03/08: Eyes will open on ventilator. Afebrile. Tolerating tube feeding. Failed PSV trial yesterday due to apnea. 03/09: Following commands. Tmax 101. Tolerating tube feeding. One hour PSV trial yesterday. Currently tolerating well so far today 1.5 hours 03/10: Low-grade temperatures. Tolerating PSV trial 10 hours yesterday. Currently at 5/5 at 35%. We'll probably attempt extubation a.m. after hemodialysis. 03/11: Extubated currently in 4 L nasal cannula. Thick secretions thick clear with cough. Currently afebrile. Tolerating diet previously. 03/12: Sleepy this morning but arouses. Following commands. Refusing diet at the present time. On 2 L nasal cannula. 03/13: Patient reintubated last night for worsening respiratory status. Currently sedated on mechanical ventilation. Became hypotensive following intubation and is on Levophed 20 mics per minute. 03/14: Sedated, orally intubated on mech vent at the time of my evaluation this AM, subsequently underwent perc trach placement. Remains on levophed for pressor support. Transfused 1 unit PRBCs today. Persisten 03/15: Trach site clean, dry. CXR with bilateral basilar infiltrates. 03/16: Pulmonary congestion persists. Clinical condition not improving. Prognosis becoming increasingly bleak. 03/17: Glucose intolerance worse. No improvement in neurological function. 03/18: Remains on mechanical ventilation via tracheostomy. Off pressors now. Neurologic status remains poor. 03/19: Drowsy, encephalopathic, arousable. On mechanical ventilation via tracheostomy. Levemir increased for hyperglycemia today. Remains off pressors 03/20: More awake, moves both upper extremities. On mechanical ventilation via tracheostomy. Daily C Pap trials ongoing. 03/21: Awake and alert. On mechanical ventilation via tracheostomy. Opens and closes eyes on command. 03/22: Awake and alert. Tolerated T PIECE for 7 hours yesterday. Dialyzed today. 03/23: Currently on T piece trial. Status post dialysis yesterday on 3 L. Awake and alert. Wants to eat. Subjective 03/24: Currently afebrile. Hemodialysis catheter discontinued yesterday from left IJ. Persistent leukocytosis noted. Potassium will be replaced. Furosemide 40 mg twice a day IV to 20 mg IV twice a day 03/25: WBC count unchanged. Patient on T piece with humidified air greater than 48 hours, tolerating it well. Objective Vital Signs Date Time Temp Pulse Resp B/P (MAP) Pulse Ox O2 Delivery O2 Flow Rate FiO2 03/25/17 09:15 99 T-piece 5.00 21 03/25/17 08:00 97.8 82 15 164/79 (107) Intake and Output 03/25/17 03/25/17 03/25/17 07:59 15:59 23:59 Intake Total 1301 ml Output Total 1425 ml Balance -124 ml Result Diagram: 03/24/17 0411 03/24/17 041 Imaging Last Impressions Chest X-Ray 03/14/17 0000 Signed Impressions: Service Date/Time: Tuesday, March 14, 2017 13:41 - CONCLUSION: 1. Tracheostomy in good position. 2. Left lower lung infiltrates and left pleural effusion. Candido Patton MD Aortography 02/28/17 0000 Signed Impressions: Service Date/Time: Tuesday, February 28, 2017 08:01 - CONCLUSION: 1. Active hemorrhage from distal right lateral sacral and iliolumbar branches successfully coil and Gelfoam embolized, as above. Juan Bhakta MD Abdomen/Pelvis CT 02/28/17 0000 Signed Impressions: Service Date/Time: Tuesday, February 28, 2017 06:51 - CONCLUSION: 1. The right retroperitoneal hematoma has increased in size, as above. There are 2 serpiginous arterially enhancing structures visualized, one in the right psoas muscle and another extending into the hematoma at the right iliac fossa. These could represent sites of continued active bleeding. 2. Stable moderate size left and small right pleural effusion with associated compressive atelectasis. 3. Stable small volume of free fluid in the abdomen and pelvis. There is also anasarca. The findings concerning the retroperitoneal hematoma were discussed with Dr. Aguiar via telephone at approximately 7: 10 AM on 02/28/2017. Angelo Allen MD Chest CT 02/27/17 0000 Signed Impressions: Service Date/Time: Monday, February 27, 2017 18:12 - CONCLUSION: 1. Bilateral pleural effusions with bibasilar atelectasis, left greater than right. Tom Sanchez MD Abdomen X-Ray 02/26/17 0000 Signed Impressions: Service Date/Time: Sunday, February 26, 2017 14:52 - CONCLUSION: 1. Nonobstructive bowel gas pattern. Juan Bhakta MD Upper Extremity Ultrasound 02/10/17 0000 Signed Impressions: Service Date/Time: Friday, February 10, 2017 18:46 - CONCLUSION: Occlusive thrombus in the cephalic and basilic veins. Benjamin Person MD Lung Scan-V Nuclear Medicine 02/10/17 0000 Signed Impressions: Service Date/Time: Friday, February 10, 2017 22:17 - CONCLUSION: Low probability pulmonary embolism. Candido Patton MD Head CT 02/10/17 0000 Signed Impressions: Service Date/Time: Friday, February 10, 2017 23:51 - CONCLUSION: Negative noncontrast CT brain. Candido Patton MD Wrist X-Ray 02/06/17 0000 Signed Impressions: Service Date/Time: Monday, February 06, 2017 12:50 - CONCLUSION: Minimally displaced distal radius and ulnar fractures. Armando Dodd MD Lumbar Puncture Fluoroscopy 02/01/17 0000 Signed Impressions: Service Date/Time: January 09:35 - CONCLUSION: Uncomplicated fluoroscopically guided lumbar puncture. CSF was clear. Nabeel Peralta MD Head Magnetic Resonance Angiography 01/27/17 0000 Signed Impressions: Service Date/Time: Friday, January 27, 2017 10:33 - CONCLUSION: No intracranial vascular abnormality is identified. There is no aneurysm visualized. Angelo Allen MD IVC Filter Placement X-Ray 01/25/17 0000 Signed Impressions: Service Date/Time: January 10:29 - CONCLUSION: Uncomplicated inferior vena cava filter placement as above. Yung Fowler MD Thoracic Spine MRI 01/24/17 Signed Impressions: Service Date/Time: Tuesday, January 24, 2017 22:29 - CONCLUSION: 1. Mild degenerative spondylosis most prominently at T11-L1 with slight effacement of the anterior thecal sac and left lateral recess. No significant neural foraminal stenosis. 2. No acute fracture. Juan Bhakta MD Renal Ultrasound 01/23/17 Signed Impressions: Service Date/Time: Monday, January 23, 2017 08:53 - CONCLUSION: 1. Evidence of chronic parenchymal disease of both kidneys. No obstructive uropathy or other acute abnormality demonstrated. 2. Trace ascites, nonspecific. Angelo Garrido MD Lumbar Spine MRI 01/23/17 Signed Impressions: Service Date/Time: Monday, January 23, 2017 17:01 - CONCLUSION: 1. At L4-5 is a broad-based disc protrusion with severe central canal and lateral recess stenosis and flattening of the exiting right L4 nerve root. 2. L5-S1 there is a disc protrusion and moderate stenosis with flattening of the exiting L5 nerve roots bilaterally. 3. At L3-4 there is a moderate to severe central stenosis and lateral recess stenosis with mild foraminal stenosis. 4. No acute fracture or spondylolisthesis. Trace Holloway MD Lower Extremity Ultrasound 01/23/17 Signed Impressions: Service Date/Time: Monday, January 23, 2017 09:53 - CONCLUSION: Bilateral focal lower extremity DVT involving the posterior tibial veins. Angelo Garrido MD Cervical Spine MRI 01/23/17 Signed Impressions: Service Date/Time: Monday, January 23, 2017 17:01 - CONCLUSION: 1. Multilevel cervical spine degenerative changes as above. 2. Mild degrees of spinal stenosis at C3/C4-C6/C7. No cord compression or cord signal abnormality. 3. Age indeterminate left paracentral/foraminal disc protrusion at C6/C7. 4. Multilevel foraminal stenosis, most severe on the left at C6/C7. Please see individual levels above. 5. No fracture or subluxation of the cervical spine. Angelo Garrido MD Brain MRI 01/23/17 Signed Impressions: Service Date/Time: Monday, January 23, 2017 17:01 - CONCLUSION: 1. No acute stroke or other acute intracranial abnormality demonstrated. 2. Moderate severity chronic white matter changes, nonspecific but most likely related to chronic small vessel disease. 3. Few scattered tiny lacunar infarcts of the brainstem. 4. Given the findings are not entirely specific, clinical evaluation for possible multiple sclerosis recommended. Angelo Garrido MD Knee X-Ray 01/22/[id number] Signed Impressions: Service Date/Time: Sunday, January 22, 2017 21:17 - CONCLUSION: 1. Evidence of moderate to large joint effusion. 2. No acute fracture or malalignment. 3. Mild 3 compartment osteoarthritic change. Benjamin Person MD Hip and Pelvis X-Ray [id number]/22/[id number] Signed Impressions: Service Date/Time: Sunday, January 22, 2017 21:10 - CONCLUSION: 1. Mild to moderate degenerative change of both hips with no acute fracture or malalignment. There is flattening and remodeling of the right humeral head. Benjamin Person MD Objective Remarks GENERAL: 62-year-old male, resting in bed, on mechanical ventilation via tracheostomy in no apparent distress HEENT: Normocephalic. Atraumatic. Pupils equal, round, reactive. NECK: Tracheostomy in place. Obese. CHEST: on T piece via tracheostomy, air entry decreased bilaterally at bases, persistent scattered rhonchi bilaterally, no wheezing noted CARDIOVASCULAR: S1-S2 regular, no gallop or murmur ABDOMEN distended. No rigidity. Umbilical hernia is reducible. No guarding. PEG tube in place : Positive scrotal edema Sloan in situ MUSCULOSKELETAL: Pulses 2+. 1+ bilateral upper and lower extremity edema. Clean white Bandage/discontinued wound VAC on left upper extremity NEUROLOGICAL: Awake and alert, has spontaneous eye opening. Opens and closes eyes on command, on T piece via tracheostomy. Moves 4 limbs weakly to stimulation. Procedures IVC filter placement 01/25/2017 LP 01/26/2017 Date of Insertion: Mar 03, 2017 Line: Central Venous Catheter Side: Right Location: Internal, Jugular A/P Problem List: (1) Septic shock ICD Code: A41.9 - Sepsis, unspecified organism; R65.21 - Severe sepsis with septic shock Status: Acute (2) Acute respiratory failure ICD Code: J96.00 - Acute respiratory failure, unspecified whether with hypoxia or hypercapnia Status: Acute (3) Thrombophlebitis arm ICD Code: I80.8 - Phlebitis and thrombophlebitis of other sites (4) Aspiration pneumonia ICD Code: J69.0 - Pneumonitis due to inhalation of food and vomit Status: Acute (5) Atelectasis of left lung ICD Code: J98.11 - Atelectasis Status: Acute (6) Quadriparesis ICD Code: G82.50 - Quadriplegia, unspecified Status: Acute (7) DVT (deep venous thrombosis) ICD Code: I82.409 - Acute embolism and thrombosis of unspecified deep veins of unspecified lower extremity (8) Altered mental status ICD Code: R41.82 - Altered mental status, unspecified Status: Acute (9) CKD (chronic kidney disease) stage 3, GFR 30-59 ml/min ICD Code: N18.3 - Chronic kidney disease, stage 3 (moderate) Status: Chronic (10) Acute renal failure ICD Code: N17.9 - Acute kidney failure, unspecified Status: Acute (11) Diabetes mellitus ICD Code: E11.9 - Type 2 diabetes mellitus without complications Status: Chronic (12) Distal end of ulna fracture, closed ICD Code: S52.609A - Unspecified fracture of lower end of unspecified ulna, initial encounter for closed fracture Status: Acute (13) Gout ICD Code: M10.9 - Gout, unspecified Status: Chronic Assessment and Plan NEURO/PSYCH: Acute metabolic encephalopathy- persistent Quadriparesis secondary to suspected transverse myelitis Recurrent falls Pain secondary to retroperitoneal hematoma. Suspected transverse myelitis. Received methylprednisolone 250 mg IV every 6 hours 01/27-02/02, started back on hydrocortisone 02/21/17, initially tapering to 50 mg IV every 8 hours starting received 1 dose at 2100 prior to becoming hypotensive. weaning hydrocortisone taper and stopped 03/09. Resumed hydrocortisone 50mg IV Q6hrly on 03/14 as patient became hypotensive following intubation on 03/13 requiring levophed. Continue 50 mg IV every 6 hours LP 01/26 and 02/01. CSF culture negative 01/26, 02/01 Oligoclonal bands negative. CSF/serum IgG index is not elevated. VDRL nonreactive. Cryptococcal antigen negative. Brain MRI 01/23 no acute stroke. Few scattered lacunar infarcts of the brainstem. Moderate chronic white matter changes. MRI cervical/thoracic spine- mild spinal stenosis C3/C4 to C6/C7. No cord compression. RPR negative Neurology has been following, Dr. Crenshaw. Repeat CT brain 02/10 - negative Continue PT/OT Continue oxycodone 10 mg every 4 hours scheduled RESP: Acute hypoxemic respiratory failure Healthcare associated pneumonia/Aspiration Pneumonia Right-sided chest tube placed for pleural effusion. continue mechanical ventilation, vent bundle, PSV and T piece trials as tolerated -On T piece >48 hours. Humidified room air Albuterol/ipratropium aerosols every 6 hours with albuterol aerosols every 2 hours prn VQ scan 02/10 low probability [address] PE. CT chest 02/10 - left lower lobe collapse and consolidation. CT chest 02/27 revealed right greater than left pleural effusions. Extubated 02/23. Intubated 02/28. Extubated 03/11, Reintubated on 03/13. 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 Failed attempt to wean successfully due to volume overload and multiple organ failure. underwent perc tracheostomy 03/14. CV: Severe sepsis - resolved. Systolic heart failure likely chronic with ejection fraction 20-25% Hyperlipidemia History of hypertension Mild TR Sinus tachycardia Elevated troponin likely type II demand ischemia Restarted on Levophed on 03/09 for following intubation, titrated off after starting hydrocortisone. Started hydrocortisone stress dose on 03/14 (as patient has been on steroids and was just tapered off on 03/09.) Patient has on hypotensive twice when attempting to wean off stress dose hydrocortisone in the past. Currently on atenolol 25 mg twice a day. Continue amlodipine 5 mg daily As needed Nitropaste, labetalol and hydralazine for hypertension Atorvastatin 10 mg by mouth daily for dyslipidemia. Troponin 0.[address]-T changes. 2-D echocardiogram 01/11 revealed EF 20-25%. Mild TR. Pulmonary arterial pressures were normal around 20 Troponin 6.55 on 03/02. Likely will need stress test of heart once stable. Cannot anticoagulate due to retroperitoneal hematoma at the present time Currently on furosemide 20 mg IV twice a day per nephrology GI: Large right retroperitoneal hematoma Erosive esophagitis Adematous/hyperplastic colon polyps Severe acute protein calorie malnutrition Nausea/vomiting - resolved. Diarrhea Gastritis Diverticulosis Internal and external hemorrhoids Hiatal hernia Elevated lipase 02/27 CT chest/abdomen and pelvis - 9.4 x 7.5 renal and 16 x 12 cm right psoas muscle hematoma. Fluid around liver and spleen. Right-sided nephrolithiasis CTA abdomen 02/28 - possible blushing around iliac/lumbar vessels Discussed with IR. s/p attempted embolization CT abdomen and pelvis 02/10 atrophic left kidney. Bilateral inguinal hernias fat- containing. Nonobstructing 12 mm right kidney stone repeat CT abd/pelvis did not show evidence of obstruction. patient clinically has been having diarrhea (c. diff negative 02/19). also with nausea/vomiting of unclear etiology. EGD/Colonoscopy-02/22/17 showed gastritis esophagitis, hiatal hernia, diverticulosis and multiple polyps in descending colon and sigmoid which were snared biopsied. Biopsy pending Dr. Lewis consulted for intervention if needed for elevated IAP. 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 Monitor electrolytes. RIOS/SPEP negative. 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 Recommended nephrostomy tube if obstruction Nephrology consulted, hemodialysis per nephrology. Making urine. Due to acute illness holding tamsulosin 0.4 mg by mouth daily for BPH ICU electrolyte replacement protocol Potassium repleted ID: Septic shock- resolved. Abscess and Suppurative thrombophlebitis left upper extremity MSSA bacteremia Klebsiella UTI ESBL positive Acute aspiration pneumonia/HCAP Previously treated with Bactrim, ertapenem, intermittent vancomycin, nafcillin Blood cultures 2, UA ESBL positive Klebsiella UTI Sputum 03/14 - Pseudomonas came back resistant to imipenem Repeat blood cultures 2 and sputum 03/08 pending. Urine negative. Switched from meropenem to ceftazidime on 03/19, vancomycin IV 1 dose given on 03/19 and 03/22. ID following-Dr. Edwards. HEME: Acute blood loss anemia DVT, bilateral posterior tibial vein, IVC filter Septic thrombophlebitis with occlusive thrombus mid cephalic and basilic vein side Received 10 PRBC, 14 FFP, 2 platelets, 1 cryo-02/28 Received 3 units PRBCs Serial hemoglobins every 6 hours Recheck coags Ultrasound 01/23/17 - Bilateral lower extremity with occlusive posterior tibial vein DVTs. Heparin was initially started for DVT but was placed on hold due to LP with suspected traumatic tap. Currently holding full anticoagulation with enoxaparin 100 mg IV twice a day due to anemia as of 02/26 IVC filter was placed 01/25/17. Ultrasound LUE 02/10 occlusive thrombus mid cephalic vein, basilic vein.s. Transfuse 3 units PRBCs 02/27 Transfuse 2 units PRBCs 03/01. transfused 1 unit PRBCs on 03/14 ENDO: Diabetes mellitus Hypoglycemia History of prior adrenal insufficiency with shock Gout EGD colonoscopy completed 02/22. gastritis and esophagitis, colon polyps Started Hydrocortisone 100 mg every 8 hours 02/21/17 (Recent high dose steroids use now hypotensive, hypoglycemic), steroids had been tapered off. Resumed stress dose steroids on 03/16 as patient back on Levophed for pressor support after intubation. Continue at 50 mg IV every 6 hours Accu-Cheks to maintain euglycemia Novulin R every 4 hours. Low Regimen Currently on insulin detemir 25 units twice a day for hyperglycemia MSK: Right distal ulna fracture. Dr. Nathan with orthopedics has evaluated and recommended nonoperative management. Right wrist splint in place. PROPH: Lansoprazole 30 mg twice a day twice a day for stress ulcer prophylaxis. Has IVC filter. Therapeutic enoxaparin currently on hold for retroperitoneal hematoma ACCESS: right IJ CVL placed 03/03-03/20. A left IJ hemodialysis catheter placed 03/01 - 03/23. Left femoral A line placed 03/14 - discontinued 03/19 Level 2 follow-up. Plan transfer to [facility] in a.m. plan transfer to medical surgical floor Physician Jailene Hernandez Problem Qualifiers (1) Aspiration pneumonia: (2) DVT (deep venous thrombosis): Qualified Codes: I82.443 - Acute embolism and thrombosis of tibial vein, bilateral (3) Acute renal failure: Qualified Codes: N17.9 - Acute kidney failure, unspecified (4) Diabetes mellitus: (5) Gout: Jailene Hernandez MD Mar 25, 2017 12:49
[2017-03-25] MEDS: SODIUM CHLOR 0.9% 1000 ML INJ 1,000 ML IV SCH (13:00)
[2017-03-25 17:03] LABS: AUTOMATED NEUTROPHIL # 23.9 TH/MM3 (1.8-7.7); BASOPHIL # 0.1 TH/MM3 (0-0.2); BASOPHIL % 0.2 % (0.0-2.0); EOSINOPHIL # 0.1 TH/MM3 (0-0.4); EOSINOPHIL % 0.4 % (0.0-4.0); HEMATOCRIT 34.7 % (39.0-51.0); LYMPH % 2.8 % (9.0-44.0); LYMPHOCYTE # 0.7 TH/MM3 (1.0-4.8); MEAN CELL VOLUME 92.9 FL (80.0-100.0); MEAN CORPUSCULAR HEMOGLOBIN 28.6 PG (27.0-34.0); MEAN CORPUSCULAR HGB CONC 30.8 % (32.0-36.0); MONO % 5.9 % (0.0-8.0); NEUT % 90.7 % (16.0-70.0); PLATELET COUNT 375 TH/MM3 (150-450); RED BLOOD COUNT 3.73 MIL/MM3 (4.50-5.90); WHITE BLOOD COUNT 26.3 TH/MM3 (4.0-11.0)
[2017-03-25 17:04] LABS: HEMO FLAGS AUTO DIFF
[2017-03-25 17:27] LABS: BICARBONATE 30.3 MEQ/L (21.0-32.0); POTASSIUM 3.3 MEQ/L (3.5-5.1)
[2017-03-25 17:29] LABS: BANDS 2 % (0-6); EOSINOPHILS 1 % (0-4); METAMYELOCYTES 2 % (0-1); MYELOCYTES 2 % (0-0); NEUTROPHIL # MANUAL DIFF 23.4 TH/MM3 (1.8-7.7); POLYS (SEG NEUTROPHILS) 83 % (16-70); WBC DIFF SAMPLE 100
[2017-03-25 17:31] LABS: PLATELET ESTIMATE SMEAR NORMAL (NORMAL); PLATELET MORPHOLOGY NORMAL (NORMAL); SCAN/DIFF FINAL DIFF MANUAL
[2017-03-25] MEDS: POTASSIUM CHLOR 20 MEQ PREMIX 100 ML IV PRN ×2 (18:45→21:08)
[2017-03-25] MEDS: ATORVASTATIN 10 MG TAB PO SCH (21:12)
[2017-03-26] VITALS (13 sets, daily range): BP systolic 142–182; BP diastolic 73–87; PULSE 68–92; RESP 15–25; TEMP 96.1–98.3; O2SAT 95–100
[2017-03-26] MEDS: HYDROCORTISONE SOD SUCCINATE 100 MG VIAL IV PUSH SCH ×5 (00:57→23:23)
[2017-03-26] MEDS: oxyCODONE HCL ORAL CONC 5 MG/0.25 ML SYRINGE PO SCH ×6 (02:00→23:24)
[2017-03-26] MEDS: INSULIN NovoLIN REGULAR SUPPLEMENTAL SCALE SQ SCH ×5 (04:00→20:00)
[2017-03-26] MEDS: RESP: ALBUTEROL 2.5 MG/IPRATROPIUM 0.5 MG NEB (SCH) NEB ×4 (04:00→21:48)
[2017-03-26] MEDS: cefTAZidime INJ 2,000 MG in SODIUM CHLORIDE 0.9% INJ 100 ML IV SCH ×3 (05:55→23:23)
[2017-03-26] MEDS: CHLORHEXIDINE 0.12% (ORAL KIT) 15 ML CUP MT SCH ×2 (08:00→20:00)
[2017-03-26] MEDS: SODIUM CHLORIDE 0.9% FLUSH 10 ML FLUSH IV FLUSH SCH ×3 (09:00→23:25)
[2017-03-26] MEDS: FUROSEMIDE 40 MG/4 ML VIAL IV PUSH SCH (09:18)
[2017-03-26] MEDS: LANSOPRAZOLE SOLUTAB 30 MG TAB NG SCH ×2 (09:19→23:25)
[2017-03-26] MEDS: amLODIPine BESYLATE 5 MG TAB PO SCH (09:19)
[2017-03-26] MEDS: ATENOLOL 25 MG TAB PO SCH ×2 (09:19→23:25)
[2017-03-26] MEDS: LACTOBACILLUS ACIDOPHILUS TAB PO SCH ×3 (09:19→18:06)
[2017-03-26] MEDS: INSULIN DETEMIR 100 UNITS/ML VIAL SQ SCH ×2 (09:20→23:26)
--- NOTE | 2017-03-26 09:41 | HHI.PR ---
Subjective Remarks The patient was resting comfortably. He did not have any acute concerns. Discussed with nursing. Objective Vitals Vital Signs Date Time Temp Pulse Resp B/P (MAP) Pulse Ox O2 Delivery O2 Flow Rate FiO2 03/26/17 08:04 95 T-piece 5.00 21 03/26/17 06:00 72 03/26/17 04:00 98.2 68 18 179/87 (117) 97 03/26/17 02:00 74 03/26/17 00:00 98.2 80 18 142/73 (96) 99 03/25/17 22:00 80 03/25/17 21:51 96 T-piece 21 03/25/17 20:00 98.2 72 18 156/75 (102) 99 03/25/17 20:00 T-Piece 28 03/25/17 16:00 98.6 84 18 158/91 (113) 98 03/25/17 12:00 98.1 89 13 177/86 (116) 98 I/O 03/25/17 03/25/17 03/25/17 03/26/17 03/26/17 03/26/17 07:00 15:00 23:00 07:00 15:00 23:00 Intake Total 1301 ml 929 ml 959 ml Output Total 1425 ml 1570 ml 1550 ml Balance -124 ml -641 ml -591 ml Intake Oral 100 ml 0 ml IV Total 321 ml 200 ml 243 ml Tube Feeding 680 ml 629 ml 596 ml Other 300 ml 120 ml Output Urine Total 1300 ml 1550 ml 1500 ml Stool Total 125 ml 20 ml 50 ml Result Diagram: 03/25/17 1558 03/25/17 1558 Imaging Last Impressions Chest X-Ray 03/14/17 0000 Signed Impressions: Service Date/Time: Tuesday, March 14, 2017 13:41 - CONCLUSION: 1. Tracheostomy in good position. 2. Left lower lung infiltrates and left pleural effusion. Candido Patton MD Aortography 02/28/17 0000 Signed Impressions: Service Date/Time: Tuesday, February 28, 2017 08:01 - CONCLUSION: 1. Active hemorrhage from distal right lateral sacral and iliolumbar branches successfully coil and Gelfoam embolized, as above. Juan Bhakta MD Abdomen/Pelvis CT 02/28/17 0000 Signed Impressions: Service Date/Time: Tuesday, February 28, 2017 06:51 - CONCLUSION: 1. The right retroperitoneal hematoma has increased in size, as above. There are 2 serpiginous arterially enhancing structures visualized, one in the right psoas muscle and another extending into the hematoma at the right iliac fossa. These could represent sites of continued active bleeding. 2. Stable moderate size left and small right pleural effusion with associated compressive atelectasis. 3. Stable small volume of free fluid in the abdomen and pelvis. There is also anasarca. The findings concerning the retroperitoneal hematoma were discussed with Dr. Aguiar via telephone at approximately 7: 10 AM on 02/28/2017. Angelo Allen MD Chest CT 02/27/17 0000 Signed Impressions: Service Date/Time: Monday, February 27, 2017 18:12 - CONCLUSION: 1. Bilateral pleural effusions with bibasilar atelectasis, left greater than right. Tom Sanchez MD Abdomen X-Ray 02/26/17 0000 Signed Impressions: Service Date/Time: Sunday, February 26, 2017 14:52 - CONCLUSION: 1. Nonobstructive bowel gas pattern. Juan Bhakta MD Upper Extremity Ultrasound 02/10/17 0000 Signed Impressions: Service Date/Time: Friday, February 10, 2017 18:46 - CONCLUSION: Occlusive thrombus in the cephalic and basilic veins. Benjamin Person MD Lung Scan- Nuclear Medicine 02/10/17 0000 Signed Impressions: Service Date/Time: Friday, February 10, 2017 22:17 - CONCLUSION: Low probability pulmonary embolism. Candido Patton MD Head CT 02/10/17 0000 Signed Impressions: Service Date/Time: Friday, February 10, 2017 23:51 - CONCLUSION: Negative noncontrast CT brain. Candido Patton MD Wrist X-Ray 02/06/17 0000 Signed Impressions: Service Date/Time: Monday, February 06, 2017 12:50 - CONCLUSION: Minimally displaced distal radius and ulnar fractures. Armando Dodd MD Lumbar Puncture Fluoroscopy 02/01/17 0000 Signed Impressions: Service Date/Time: January 09:35 - CONCLUSION: Uncomplicated fluoroscopically guided lumbar puncture. CSF was clear. Nabeel Peralta MD Head Magnetic Resonance Angiography 01/27/17 Signed Impressions: Service Date/Time: Friday, January 27, 2017 10:33 - CONCLUSION: No intracranial vascular abnormality is identified. There is no aneurysm visualized. Angelo Allen MD IVC Filter Placement X-Ray 01/25/17 Signed Impressions: Service Date/Time: January 10:29 - CONCLUSION: Uncomplicated inferior vena cava filter placement as above. Yung Fowler MD Thoracic Spine MRI 01/24/17 Signed Impressions: Service Date/Time: Tuesday, January 24, 2017 22:29 - CONCLUSION: 1. Mild degenerative spondylosis most prominently at T11-L1 with slight effacement of the anterior thecal sac and left lateral recess. No significant neural foraminal stenosis. 2. No acute fracture. Juan Bhakta MD Renal Ultrasound 01/23/17 Signed Impressions: Service Date/Time: Monday, January 23, 2017 08:53 - CONCLUSION: 1. Evidence of chronic parenchymal disease of both kidneys. No obstructive uropathy or other acute abnormality demonstrated. 2. Trace ascites, nonspecific. Angelo Garrido MD Lumbar Spine MRI 01/23/17 Signed Impressions: Service Date/Time: Monday, January 23, 2017 17:01 - CONCLUSION: 1. At L4-5 is a broad-based disc protrusion with severe central canal and lateral recess stenosis and flattening of the exiting right L4 nerve root. 2. L5-S1 there is a disc protrusion and moderate stenosis with flattening of the exiting L5 nerve roots bilaterally. 3. At L3-4 there is a moderate to severe central stenosis and lateral recess stenosis with mild foraminal stenosis. 4. No acute fracture or spondylolisthesis. Trace Holloway MD Lower Extremity Ultrasound 01/23/17 Signed Impressions: Service Date/Time: Monday, January 23, 2017 09:53 - CONCLUSION: Bilateral focal lower extremity DVT involving the posterior tibial veins. Angelo Garrido MD Cervical Spine MRI 01/23/17 Signed Impressions: Service Date/Time: Monday, January 23, 2017 17:01 - CONCLUSION: 1. Multilevel cervical spine degenerative changes as above. 2. Mild degrees of spinal stenosis at C3/C4-C6/C7. No cord compression or cord signal abnormality. 3. Age indeterminate left paracentral/foraminal disc protrusion at C6/C7. 4. Multilevel foraminal stenosis, most severe on the left at C6/C7. Please see individual levels above. 5. No fracture or subluxation of the cervical spine. Angelo Garrido MD Brain MRI 01/23/17 0000 Signed Impressions: Service Date/Time: Monday, January 23, 2017 17:01 - CONCLUSION: 1. No acute stroke or other acute intracranial abnormality demonstrated. 2. Moderate severity chronic white matter changes, nonspecific but most likely related to chronic small vessel disease. 3. Few scattered tiny lacunar infarcts of the brainstem. 4. Given the findings are not entirely specific, clinical evaluation for possible multiple sclerosis recommended. Angelo Garrido MD Knee X-Ray 01/22/[id number] Signed Impressions: Service Date/Time: Sunday, January 22, 2017 21:17 - CONCLUSION: 1. Evidence of moderate to large joint effusion. 2. No acute fracture or malalignment. 3. Mild 3 compartment osteoarthritic change. Benjamin Person MD Hip and Pelvis X-Ray [id number]/22/[id number] Signed Impressions: Service Date/Time: Sunday, January 22, 2017 21:10 - CONCLUSION: 1. Mild to moderate degenerative change of both hips with no acute fracture or malalignment. There is flattening and remodeling of the right humeral head. Benjamin Person MD Objective Remarks GENERAL: Resting in bed, in no apparent distress. HEENT: Normocephalic. Atraumatic. Pupils equal, round, reactive. NECK: Tracheostomy in place. CHEST: on T piece via tracheostomy, air entry decreased bilaterally at bases. CARDIOVASCULAR: S1-S2 regular, no gallop or murmur. ABDOMEN distended. No rigidity. Umbilical hernia is reducible. No guarding. PEG tube in place. : Positive scrotal edema Sloan in place. MUSCULOSKELETAL: Pulses 2+. 1+ bilateral upper and lower extremity edema. Clean white Bandage/discontinued wound VAC on left upper extremity NEUROLOGICAL: Awake and alert, has spontaneous eye opening. Opens and closes eyes on command, on T piece via tracheostomy. Moves 4 limbs weakly to stimulation. Procedures IVC filter placement 01/25/2017 LP 01/26/2017 Medications and IVs Current Medications Medications (Trade) Dose Ordered Sig/Rosalia Route Start Time Stop Time Status Last Admin (NS Flush) 2 ml UNSCH PRN IV FLUSH 01/23/17 00:30 02/01/17 05:07 (NS Flush) 2 ml BID IV FLUSH 01/23/17 09:00 03/25/17 21:12 (Zofran Inj) 4 mg Q6H PRN IVP 01/23/17 00:30 02/26/17 17:23 (Narcan Inj) 0.4 mg UNSCH PRN IV 01/23/17 00:30 (Edna-Colace) 1 tab BID PO 01/23/17 09:00 Future Hold 02/24/17 20:31 (Dulcolax Supp) 10 mg DAILY PRN RECTAL 01/23/17 00:30 (Lipitor) 10 mg HS PO 01/24/17 21:00 Future hold 03/25/17 21:12 (Glucagon Inj) 1 mg UNSCH PRN OTHER 02/11/17 05:45 02/18/17 18:53 (Flomax) 0.4 mg Q12HR PO 02/17/17 15:00 Future Hold 02/26/17 08:49 (Lovenox Inj) 100 mg Q12H SQ 02/18/17 12:00 Future Hold 02/26/17 16:20 (Lactinex) 1 tab TID PO 02/19/17 13:00 03/26/17 09:19 (Apresoline Inj) 10 mg Q30M PRN IV PUSH 02/20/17 11:45 03/22/17 22:06 (D50w (Vial) Inj) 25 ml UNSCH PRN IV PUSH 02/20/17 12:45 Sodium Chloride 1,000 ml @ 20 mls/hr Q24H IV 02/22/17 13:00 03/22/17 13:00 (Questran Light Pkt) 4 gm Q12HR PO 02/25/17 21:00 Future Hold 02/27/17 10:32 (Aldactone) 25 mg DAILY PO 02/27/17 09:00 Future Hold (Peridex 0.12% Liq) 15 ml BID@08,20 MT 02/28/17 08:00 03/25/17 20:00 (Albuterol Neb) 2.5 mg Q2HR NEB PRN NEB 02/28/17 07:45 03/21/17 19:21 (NovoLIN R SUPPLEMENTAL SCALE) 1 Q4HR SQ 02/28/17 08:00 03/26/17 08:00 (NS Flush) UNSCH PRN IV FLUSH 03/01/17 13:00 (Heparin Inj) UNSCH PRN IV FLUSH 03/01/17 13:00 (NS Flush) DAILY IV FLUSH 03/04/17 09:00 03/20/17 08:05 (NS Flush) UNSCH PRN IV FLUSH 03/03/17 18:45 (Roxicodone Intensol Liq) 10 mg Q4H PO 03/05/17 14:00 03/26/17 09:19 (Prevacid Odt) 30 mg BID NG 03/07/17 21:00 03/26/17 09:19 (Tylenol 650 Mg/ 20 ml Liq) 650 mg Q6H PRN PO 03/09/17 10:15 03/14/17 05:24 (Trandate Inj) 20 mg Q4H PRN IV 03/12/17 04:30 03/17/17 12:25 (Tenormin) 25 mg Q12HR PO 03/12/17 10:00 03/26/17 09:19 (SoluCORTEF INJ) 50 mg Q6HR IV PUSH 03/14/17 18:00 03/26/17 05:50 (Epogen Inj) 10,000 units UNSCH PRN IV PUSH 03/17/17 11:30 03/22/17 10:52 (Levemir Inj) 25 units BID SQ 03/19/17 09:00 03/26/17 09:20 Potassium Chloride 100 ml @ 50 mls/hr Q2H PRN IV 03/21/17 22:45 Potassium Chloride 100 ml @ 50 mls/hr Q2H PRN IV 03/21/17 22:45 03/24/17 20:00 (K-Lyte Cl Eff) 50 meq UNSCH PRN PO 03/21/17 22:45 Potassium Chloride 100 ml @ 25 mls/hr UNSCH PRN IV 03/21/17 22:45 Potassium Chloride 100 ml @ 50 mls/hr Q2H PRN IV 03/21/17 22:45 03/25/17 21:08 Magnesium Sulfate 4 gm/Sodium Chloride 100 ml @ 50 mls/hr UNSCH PRN IV 03/21/17 22:45 (Mag-Ox) 800 mg UNSCH PRN PO 03/21/17 22:45 Magnesium Sulfate 2 gm/Sodium Chloride 100 ml @ 50 mls/hr UNSCH PRN IV 03/21/17 22:45 (K-Phos) 2,000 mg Q4H PRN PO 03/21/17 22:45 Sodium Phosphate 30 mmol/Sodium Chloride 250 ml @ 42 mls/hr UNSCH PRN IV 03/21/17 22:45 (K-Phos) 2,000 mg UNSCH PRN PO/TUBE 03/21/17 22:45 Potassium Phosphate 30 mmol/ Sodium Chloride 260 ml @ 42 mls/hr UNSCH PRN IV 03/21/17 22:45 (Norvasc) 5 mg DAILY PO 03/24/17 09:00 03/26/17 09:19 (Nitroglycerin 2% Oint) 2 inch Q6H PRN TOPICAL 03/23/17 14:00 (Duoneb Neb) 1 ampule Q6HR NEB NEB 03/23/17 16:00 03/26/17 08:03 (Lasix Inj) 20 mg BID@,18 IV PUSH 03/24/17 18:00 03/26/17 09:18 Ceftazidime 2000 mg/Sodium Chloride 100 ml @ 200 mls/hr Q8H IV 03/25/17 21:00 03/27/17 23:00 03/26/17 05:55 Date of Insertion: Mar 03, 2017 Line: Central Venous Catheter Side: Right Location: Internal, Jugular A/P Problem List: (1) Transverse myelitis ICD Code: G37.3 - Acute transverse myelitis in demyelinating disease of central nervous system Status: Acute (2) Septic shock ICD Code: A41.9 - Sepsis, unspecified organism; R65.21 - Severe sepsis with septic shock Status: Resolved (3) HCAP (healthcare-associated pneumonia) ICD Code: J18.9 - Pneumonia, unspecified organism (4) Acute respiratory failure with hypoxia and hypercarbia ICD Code: J96.01 - Acute respiratory failure with hypoxia; J96.02 - Acute respiratory failure with hypercapnia Status: Resolved (5) Hyperlipidemia ICD Code: E78.5 - Hyperlipidemia, unspecified Status: Chronic (6) HTN (hypertension) ICD Code: I10 - Essential (primary) hypertension (7) DVT of lower extremity, bilateral ICD Code: I82.403 - Acute embolism and thrombosis of unspecified deep veins of lower extremity, bilateral (8) Diabetes mellitus with hyperglycemia ICD Code: E11.65 - Type 2 diabetes mellitus with hyperglycemia (9) Hypocalcemia ICD Code: E83.51 - Hypocalcemia (10) Hypernatremia ICD Code: E87.0 - Hyperosmolality and hypernatremia (11) Hypokalemia ICD Code: E87.6 - Hypokalemia (12) Acute metabolic encephalopathy ICD Code: G93.41 - Metabolic encephalopathy (13) Quadriparesis ICD Code: G82.50 - Quadriplegia, unspecified Status: Acute (14) BREEZY (acute kidney injury) ICD Code: N17.9 - Acute kidney failure, unspecified (15) Diarrhea ICD Code: R19.7 - Diarrhea, unspecified (16) Abdominal pain ICD Code: R10.9 - Unspecified abdominal pain (17) Hypoglycemia ICD Code: E16.2 - Hypoglycemia, unspecified (18) Urinary retention ICD Code: R33.9 - Retention of urine, unspecified (19) Acute hypoxemic respiratory failure ICD Code: J96.01 - Acute respiratory failure with hypoxia (20) Sepsis ICD Code: A41.9 - Sepsis, unspecified organism Assessment and Plan Acute metabolic encephalopathy- persistent Quadriparesis secondary to suspected transverse myelitis Recurrent falls Pain secondary to retroperitoneal hematoma. Suspected transverse myelitis. Received methylprednisolone 250 mg IV every 6 hours 01/27-02/02, started back on hydrocortisone 02/21/17, initially tapering to 50 mg IV every 8 hours starting received 1 dose at 2100 prior to becoming hypotensive. weaning hydrocortisone taper and stopped 03/09. Resumed hydrocortisone 50mg IV Q6hrly on 03/14 as patient became hypotensive following intubation on 03/13 requiring levophed. Continue 50 mg IV every 6 hours LP 01/26 and 02/01. CSF culture negative 01/26, 02/01 Oligoclonal bands negative. CSF/serum IgG index is not elevated. VDRL nonreactive. Cryptococcal antigen negative. Brain MRI 01/23 no acute stroke. Few scattered lacunar infarcts of the brainstem. Moderate chronic white matter changes. MRI cervical/thoracic spine- mild spinal stenosis C3/C4 to C6/C7. No cord compression. RPR negative Neurology has been following, Dr. Crenshaw. Repeat CT brain 02/10 - negative Continue PT/OT Continue oxycodone 10 mg every 4 hours scheduled Acute hypoxemic respiratory failure Healthcare associated pneumonia/Aspiration Pneumonia Right-sided chest tube placed for pleural effusion. continue mechanical ventilation, vent bundle, PSV and T piece trials as tolerated -On T piece >48 hours. Humidified room air Albuterol/ipratropium aerosols every 6 hours with albuterol aerosols every 2 hours prn VQ scan 02/10 low probability for PE. CT chest 02/10 - left lower lobe collapse and consolidation. CT chest 02/27 revealed right greater than left pleural effusions. Extubated 02/23. Intubated 02/28. Extubated 03/11, Reintubated on 03/13. 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 Failed attempt to wean successfully due to volume overload and multiple organ failure. underwent perc tracheostomy 03/14. Severe sepsis - resolved. Systolic heart failure likely chronic with ejection fraction 20-25% Hyperlipidemia History of hypertension Mild TR Sinus tachycardia Elevated troponin likely type II demand ischemia Restarted on Levophed on 03/09 following intubation, titrated off after starting hydrocortisone. Started hydrocortisone stress dose on 03/14 (as patient has been on steroids and was just tapered off on 03/09.) Patient has on hypotensive twice when attempting to wean off stress dose hydrocortisone in the past. Currently on atenolol 25 mg twice a day. Continue amlodipine 5 mg daily As needed Nitropaste, labetalol and hydralazine for hypertension Atorvastatin 10 mg by mouth daily for dyslipidemia. Troponin 0.[address]-T changes. 2-D echocardiogram 01/11 revealed EF 20-25%. Mild TR. Pulmonary arterial pressures were normal around 20 Troponin 6.55 on 03/02. Likely will need stress test of heart once stable. Cannot anticoagulate due to retroperitoneal hematoma at the present time Currently on furosemide 20 mg IV twice a day per nephrology Large right retroperitoneal hematoma Erosive esophagitis Adematous/hyperplastic colon polyps Severe acute protein calorie malnutrition Nausea/vomiting - resolved. Diarrhea Gastritis Diverticulosis Internal and external hemorrhoids Hiatal hernia Elevated lipase 02/27 CT chest/abdomen and pelvis - 9.4 x 7.5 renal and 16 x 12 cm right psoas muscle hematoma. Fluid around liver and spleen. Right-sided nephrolithiasis CTA abdomen 02/28 - possible blushing around iliac/lumbar vessels Discussed with IR. s/p attempted embolization CT abdomen and pelvis 02/10 atrophic left kidney. Bilateral inguinal hernias fat- containing. Nonobstructing 12 mm right kidney stone repeat CT abd/pelvis did not show evidence of obstruction. patient clinically has been having diarrhea (c. diff negative 02/19). also with nausea/vomiting of unclear etiology. EGD/Colonoscopy-02/22/17 showed gastritis esophagitis, hiatal hernia, diverticulosis and multiple polyps in descending colon and sigmoid which were snared biopsied. Biopsy pending Dr. Lewis consulted for intervention if needed for elevated IAP. will continue to check as needed Status post PEG tube placement by Previously on tube feeds with Nepro goal Lansoprazole 30 mg twice a day for GI prophylaxis Discontinued metoclopramide 5 mill grams IV every 8 hours today Dietary consult for appropriate tube feeding Acute kidney injury in the setting of Chronic kidney disease stage 3-4 History of uric acid kidney stones with prior stent BPH Nonfunctioning left kidney Acute intravascular volume overload Hypokalemia Sloan placed due to urinary retention and worsening creatinine Maintain Sloan secondary to urinary retention Monitor intake and output q1hr. Monitor electrolytes. RIOS/SPEP negative. 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 Recommended nephrostomy tube if obstruction Nephrology consulted, hemodialysis per nephrology. Making urine. Due to acute illness holding tamsulosin 0.4 mg by mouth daily for BPH ICU electrolyte replacement protocol Potassium repleted Septic shock- resolved. Abscess and Suppurative thrombophlebitis left upper extremity MSSA bacteremia Klebsiella UTI ESBL positive Acute aspiration pneumonia/HCAP Previously treated with Bactrim, ertapenem, intermittent vancomycin, nafcillin Blood cultures 2, UA ESBL positive Klebsiella UTI Sputum 03/14 - Pseudomonas came back resistant to imipenem Repeat blood cultures 2 and sputum 03/08 pending. Urine negative. Switched from meropenem to ceftazidime on 03/19, vancomycin IV 1 dose given on 03/19 and 03/22. ID following-Dr. Edwards. Acute blood loss anemia DVT, bilateral posterior tibial vein, IVC filter Septic thrombophlebitis with occlusive thrombus mid cephalic and basilic vein side Received 10 PRBC, 14 FFP, 2 platelets, 1 cryo-02/28 Received 3 units PRBCs Serial hemoglobins every 6 hours Recheck coags Ultrasound 01/23/17 - Bilateral lower extremity with occlusive posterior tibial vein DVTs. Heparin was initially started for DVT but was placed on hold due to LP with suspected traumatic tap. Currently holding full anticoagulation with enoxaparin 100 mg IV twice a day due to anemia as of 02/26 IVC filter was placed 01/25/17. Ultrasound LUE 02/10 occlusive thrombus mid cephalic vein, basilic vein.s. Transfuse 3 units PRBCs 02/27 Transfuse 2 units PRBCs 03/01. transfused 1 unit PRBCs on 03/14 Diabetes mellitus Hypoglycemia History of prior adrenal insufficiency with shock Gout EGD colonoscopy completed 02/22. gastritis and esophagitis, colon polyps Started Hydrocortisone 100 mg every 8 hours 02/21/17 (Recent high dose steroids use now hypotensive, hypoglycemic), steroids had been tapered off. Resumed stress dose steroids on 03/16 as patient back on Levophed for pressor support after intubation. Continue at 50 mg IV every 6 hours Accu-Cheks to maintain euglycemia Novulin R every 4 hours. Low Regimen Currently on insulin detemir 25 units twice a day for hyperglycemia Right distal ulna fracture. Dr. Nathan with orthopedics has evaluated and recommended nonoperative management. Right wrist splint in place. PROPH: Lansoprazole 30 mg twice a day twice a day for stress ulcer prophylaxis. Has IVC filter. Therapeutic enoxaparin currently on hold for retroperitoneal hematoma Discharge Planning Awaiting placement Problem Qualifiers (1) Hyperlipidemia: Qualified Codes: E78.5 - Hyperlipidemia, unspecified (2) HTN (hypertension): Qualified Codes: I10 - Essential (primary) hypertension (3) Diabetes mellitus with hyperglycemia: Qualified Codes: E11.65 - Type 2 diabetes mellitus with hyperglycemia (4) Diarrhea: Qualified Codes: A09 - Infectious gastroenteritis and colitis, unspecified (5) Abdominal pain: Qualified Codes: R10.84 - Generalized abdominal pain (6) Sepsis: Qualified Codes: A41.9 - Sepsis, unspecified organism Benjamin Christian DO Mar 26, 2017 09:41
[2017-03-26] MEDS: hydrALAZINE HCL 20 MG/ML VIAL IV PUSH PRN (12:18)
--- NOTE | 2017-03-26 15:02 | HHI.HCPN ---
Reason for visit a. To assist with evaluation and management of symptoms including: shortness of breath, pain, debility b. To assist medical decision maker(s) with: better understanding of current medical conditions; weighing benefits/burdens of medical treatment options; making medical treatment decisions. Subjective/Interval History Mr Kerr is a 62 years old male with a past medical history of hypertension, asthma, diabetes, hyperlipidemia, chronic kidney disease and gout. Patient presented to the ED on 01/22/17 complaining of bilateral knee and right arm pain after a mechanical fall 4 or 5 days prior to coming to the ER. Patient has been experiencing progressive weakness of bilateral lower extremities as well as bilateral upper extremities prior to ER visit. Patient seen in ICU, awake alert and on T piece-trying to mouth words.Denies pain by "shaking" head. Patient getting ready to be transferred OOB to a specialty stretcher chair. Patient is afebrile. SBP 150s-160s. O2 saturation high 90s on T-bruce 21%. Last BUN/Creatinine on 03/26/17 68/1.13. Patient urine output averaging 1.15 ml/kg/hr. Trace edema to BLE, improved from Sunday. Case discussed with bedside RN Yaz, Case management Jany Miramontes. . Advance Directives Living Will: Never completed Health Care Surrogate: Never completed Durable Power of Historic Interpreter: Never completed Advance Directive Specifics Documented care wishes: No known documented care wishes have been completed. . Objective Vital Signs Date Time Temp Pulse Resp B/P (MAP) Pulse Ox O2 Delivery O2 Flow Rate FiO2 03/26/17 14:00 89 03/26/17 12:00 92 03/26/17 12:00 98.0 92 25 154/85 (108) 100 03/26/17 10:00 79 03/26/17 08:04 95 T-piece 5.00 21 03/26/17 08:00 79 03/26/17 08:00 98.3 72 15 164/82 (109) 96 03/26/17 07:00 T-Piece 28 03/26/17 06:00 72 03/26/17 04:00 98.2 68 18 179/87 (117) 97 03/26/17 02:00 74 03/26/17 00:00 98.2 80 18 142/73 (96) 99 03/25/17 22:00 80 03/25/17 21:51 96 T-piece 21 03/25/17 20:00 98.2 72 18 156/75 (102) 99 03/25/17 20:00 T-Piece 28 03/25/17 16:00 98.6 84 18 158/91 (113) 98 Intake & Output 03/26/17 03/26/17 07:00 19:00 Intake Total 959 ml 100 ml Output Total 1550 ml Balance -591 ml 100 ml Intake Oral 0 ml IV Total 243 ml 100 ml Tube Feeding 596 ml Other 120 ml Output Urine Total 1500 ml Stool Total 50 ml Physical Exam CONSTITUTIONAL/GENERAL: This is an adequately nourished patient, trached on T piece TUBES/LINES/DRAINS: PEG tube, Tracheostomy, PIVs, FC SKIN: No jaundice. Ecchymoses on upper extremities. Sacral pressure wound and L heel pressure injury. Afebrile. Not diaphoretic. HEAD: Atraumatic. Normocephalic. EYES: Pupils equal and round, slight reaction.No scleral icterus. No injection or drainage. Fundi not examined. ENT: Trached with no sedation. Nose without bleeding or purulent drainage. Moist oral mucosa. NECK: Trachea midline. Supple, nontender. CARDIOVASCULAR: Regular rate and rhythm without murmurs, gallops, or rubs. No JVD. RESPIRATORY/CHEST: Symmetric, unlabored respirations. rhonchi to auscultation. Breath sounds equal bilaterally. GASTROINTESTINAL: Abdomen soft, non-tender, nondistended. No guarding. Bowel sounds present. Nepro infusing at 55ml/hr via PEG tube, tolerating per nursing GENITOURINARY: Without palpable bladder distension. Sloan catheter in with clear urine. Scrotal edema. MUSCULOSKELETAL: Gout tophi to fingers, knees, elbows and both ankles. Trace edema to all 4 extremities. NEUROLOGICAL: Tracheostomy on T-bruce 35%. Patient is awake and alert , followed simple commands with all 4 extremities, trying to mouth some words. PSYCHIATRIC: No obvious anxiety/depression. no apparent hallucinations or other psychotic thought process. . Diagnostic Tests Laboratory Laboratory Tests Test 03/24/17 04:11 03/25/17 15:58 White Blood Count 19.9 TH/MM3 (4.0-11.0) 26.3 TH/MM3 (4.0-11.0) Red Blood Count 3.28 MIL/MM3 (4.50-5.90) 3.73 MIL/MM3 (4.50-5.90) Hemoglobin 9.3 GM/DL (13.0-17.0) 10.7 GM/DL (13.0-17.0) Hematocrit 29.6 % (39.0-51.0) 34.7 % (39.0-51.0) Mean Corpuscular Volume 90.2 FL (80.0-100.0) 92.9 FL (80.0-100.0) Mean Corpuscular Hemoglobin 28.3 PG (27.0-34.0) 28.6 PG (27.0-34.0) Mean Corpuscular Hemoglobin Concent 31.4 % (32.0-36.0) 30.8 % (32.0-36.0) Red Cell Distribution Width 16.4 % (11.6-17.2) 17.0 % (11.6-17.2) Platelet Count 383 TH/MM3 (150-450) 375 TH/MM3 (150-450) Mean Platelet Volume 9.4 FL (7.0-11.0) 9.5 FL (7.0-11.0) Blood Urea Nitrogen 67 MG/DL (7-18) 68 MG/DL (7-18) Creatinine 1.10 MG/DL (0.60-1.30) 1.13 MG/DL (0.60-1.30) Random Glucose 138 MG/DL (74-106) 133 MG/DL (74-106) Calcium Level 7.6 MG/DL (8.5-10.1) 8.2 MG/DL (8.5-10.1) Phosphorus Level 3.0 MG/DL (2.5-4.9) 2.3 MG/DL (2.5-4.9) Magnesium Level 1.7 MG/DL (1.5-2.5) Sodium Level 148 MEQ/L (136-145) 150 MEQ/L (136-145) Potassium Level 3.1 MEQ/L (3.5-5.1) 3.3 MEQ/L (3.5-5.1) Chloride Level 110 MEQ/L (98-107) 110 MEQ/L (98-107) Carbon Dioxide Level 28.3 MEQ/L (21.0-32.0) 30.3 MEQ/L (21.0-32.0) Anion Gap 10 MEQ/L (5-15) 10 MEQ/L (5-15) Estimat Glomerular Filtration Rate 68 ML/MIN (>89) 66 ML/MIN (>89) Neutrophils (%) (Auto) 90.7 % (16.0-70.0) Lymphocytes (%) (Auto) 2.8 % (9.0-44.0) Monocytes (%) (Auto) 5.9 % (0.0-8.0) Eosinophils (%) (Auto) 0.4 % (0.0-4.0) Basophils (%) (Auto) 0.2 % (0.0-2.0) Neutrophils # (Auto) 23.9 TH/MM3 (1.8-7.7) Lymphocytes # (Auto) 0.7 TH/MM3 (1.0-4.8) Monocytes # (Auto) 1.6 TH/MM3 (0-0.9) Eosinophils # (Auto) 0.1 TH/MM3 (0-0.4) Basophils # (Auto) 0.1 TH/MM3 (0-0.2) CBC Comment AUTO DIFF Differential Total Cells Counted 100 Neutrophils % (Manual) 83 % (16-70) Band Neutrophils % 2 % (0-6) Lymphocytes % 3 % (9-44) Monocytes % 7 % (0-8) Eosinophils % 1 % (0-4) Neutrophils # (Manual) 23.4 TH/MM3 (1.8-7.7) Metamyelocytes 2 % (0-1) Myelocytes 2 % (0-0) Differential Comment FINAL DIFF MANUAL Platelet Estimate NORMAL (NORMAL) Platelet Morphology Comment NORMAL (NORMAL) Albumin 2.0 GM/DL (3.4-5.0) Result Diagram: 03/25/17 1558 03/25/17 1558 Procedures 01/25/2017- Retrievable IVC Filter placement 01/26/17-lumbar puncture with fluoroscopy-by interventional radiology 02/01/17- lumbar puncture fluoroscopy by interventional radiology 02/10/17- Endotracheal Intubation 02/10/17-left IJ central venous line placed 02/10/17-left femoral arterial line placed 02/11/17-Diagnostic and therapeutic bronchoscopy with bronchoalveolar lavage 02/11/17-Left upper extremity incision and debridement with excision of septic cephalic vein 02/13/17- Extubated 02/20/17- endotracheal intubation 02/20/17- Left subclavian central line placement 02/20/17-Right radial A-line placement 02/22/17-EGD/colonoscopy 02/28/17-right radial a line 02/28/17- Endotracheal intubation 02/28/17- right sided introducer catheter placement 02/28/17- Right IJ central line placement 02/28/17-Right chest tube placement 02/28/17- Embolization of inferior and superior sacral branches of right internal iliac artery 03/01/17- Hemodialysis access catheter 03/03/17-Right IJ central line placement 03/11/17-Extubated 03/13/17- Endotracheal intubation 03/14/17-Tracheostomy placement 03/15/17-PEG tube placement . Assessment and Plan Disease Oriented Problem List: (1) Acute respiratory failure (2) Septic shock (3) Aspiration pneumonia (4) Acute renal failure (5) CKD (chronic kidney disease) stage 3, GFR 30-59 ml/min (6) Cardiomyopathy (7) DVT of lower extremity, bilateral (8) Thrombophlebitis arm (9) Diabetes mellitus (10) Gout (11) HTN (hypertension) (12) Hyperlipidemia Symptom Scale: (1) Shortness of breath 0-10 Scale: Unable to quantify Comment: Currently trached on T piece 21% . (2) Debility 0-10 Scale: Unable to quantify Comment: Progressive. . (3) Pain 0-10 Scale: Unable to quantify Comment: History of falls, gout, arthritis, and currently bedbound. . Pertinent Non-Medical Issues Psychosocial:Patient was born and raised in [place], [place]. Patient was once for 20 years, now and has 2 adult sons. 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 He recently resigned due to failing health. Spiritual: No jew affiliation Legal: Per [place] statutes, in the absence of written advanced directives healthcare proxy decision making falls to the patient's 2 adult children. Patient's son (Davie) lives locally and wishes to participate in the role of the healthcare proxy decision maker. Palliative care has attempted to contact Arnel, has not call back. Patient`s sister Deb and patients brother verbalized that they have been updating Arnel on patient`s medical status. Ethical issues impacting care: No known ethical issues impacting care at this time. . Important Contacts Son-Daive Kerr - Son-Arnel Kerr- -cell -home Sister-Deb Curry . Prognosis Mr Kerr is a 62 years old male with a past medical history of hypertension, asthma, diabetes, hyperlipidemia, chronic kidney disease and gout. Patient presented to the ED on 01/22/17 complaining of bilateral knee and right arm pain after a mechanical fall 4 or 5 days prior to coming to the ER. Clinical course complicated with increased weakness leading to numerous diagnostic work ups for possible transverse myelitis, DVTs, retroperitoneal hematoma, aspiration pneumonia, intubation x 4 times, septic and hemorrhagic shock requiring support with pressors and multiple pRBC, FFP transfusions as well as platelets and cryo , renal failure requiring hemodialysis and sacral wound Given ongoing comorbidities, and prolonged hospitalization, patient remains at risk for further complications, deterioration and decline. Code Status: Full Code Plan PLAN: Legal decision maker: Patient is currently intubated, sedated on a mechanical ventilation and is not able to make any medical decisions for himself at this time. It is unclear if patient will regain capacity to make medical decisions at this time. Patient has 2 adult sons Davie Kerr and Arnel Kerr. According to [place] Statute, his two aforementioned sons will serve as his health care proxys. Patient`s son Davie is acting in the role of HCP decision maker independently at this time given that he is the one who is reasonably available for consultation. Goals: 03/26/17- Remain Aggressive. Case management working with [facility]. CODE STATUS: Full Code SYMPTOMS: * Shortness of breath: Multifactorial. Patient has had aspiration pneumonia. Patient has been intubated 4 times this hospitalization. Patient has a tracheostomy. Currently on T-Bruce 21%. Patient on duonebs. Patient also on Hydrocortisone 50mg q 6 hours. Consult to [facility]. * Pain: Patient presented initially complaining of pain to right wrist and bilateral knees after a mechanical fall. Patient has a history of gout, arthritis, multiple falls and is currently bedbound. Patient on Oxycodone q 4 hours ATC. Patient does not appear to be in pain. Patient also on Hydrocortisone. * Debility: Progressive. Patient has had decline in his health for the past 4 months, including progressively increased weakness and difficulty ambulating and prolonged hospitalization with multiple setbacks. Patient remains at high risk for further physical deconditioning and debility. PT and OT following with patient. Recommending continued PT and OT sessions since patient is hemodynamically stable and somewhat more alert. Patient may benefit from PT and OT at rehab. Palliative care will continue to follow the patient during hospital course as condition evolves, to assist patient/decision-maker with understanding of their medical conditions, weighing benefits/burdens of treatment options, for clarification of goals of treatment. Additionally will assist with any symptoms of palliative concern. . Attestation To help prompt me to consider important information that might be impacting today's encounter and assessment, information from prior notes written by myself or my colleagues may have been "brought forward" into today's note. My signature on this note, however, is an attestation that I personally performed the exam, history, and/or decision-making noted today, and, unless otherwise indicated, the interactions with patient, family, and staff as well as the review of records all occurred today. I also attest that the listed assessment and stated plan reflect my best clinical judgment today based on the combination of historical information, prior notes, and today's exam/ interactions. When time spent is documented, it refers only to time spent today by the signer, or if indicated, combined time spent today by collaborating physician/nurse practitioner. Aftab Cartwright Mar 26, 2017 15:02
--- NOTE | 2017-03-26 15:07 | HHI.NPPN ---
Subjective History of Present Illness 61-year-old with history of urinary stone Additional Remarks Patient had trach on trach collar O2 , mild SOB, not in distress. Review of Systems General Constitutional: Fatigue Objective Data Data 03/26/17 03/27/17 19:00 07:00 Intake Total 100 ml Balance 100 ml IV Total 100 ml Vital Signs Date Time Temp Pulse Resp B/P (MAP) Pulse Ox O2 Delivery O2 Flow Rate FiO2 03/26/17 14:00 89 03/26/17 12:00 92 03/26/17 12:00 98.0 92 25 154/85 (108) 100 03/26/17 10:00 79 03/26/17 08:04 95 T-piece 5.00 21 03/26/17 08:00 79 03/26/17 08:00 98.3 72 15 164/82 (109) 96 03/26/17 07:00 T-Piece 28 03/26/17 06:00 72 03/26/17 04:00 98.2 68 18 179/87 (117) 97 03/26/17 02:00 74 03/26/17 00:00 98.2 80 18 142/73 (96) 99 03/25/17 22:00 80 03/25/17 21:51 96 T-piece 21 03/25/17 20:00 98.2 72 18 156/75 (102) 99 03/25/17 20:00 T-Piece 28 03/25/17 16:00 98.6 84 18 158/91 (113) 98 -: 03/25/17 1558 03/25/17 1558 Physical Exam General Appearance: Pale Eyes Eye Exam: Pupils Equal Throat Throat Exam: Oral Mucosa [place] & Moist Neck Neck Exam: Neck Supple Pulmonary Resp Exam: Clear Bilaterally Cardiology CV Exam: Normal Sinus Rhythm Gastrointestinal/Abdomen GI Exam: Non-Tender, Distended Extremeties Extremities Exam: Moderate Edema, Pitting Edema Neurologic Neuro Exam: Awake Assessment/Plan Problem List: (1) Acute renal failure ICD Codes: N17.9 - Acute kidney failure, unspecified Status: Acute Plan: Patient developed Hypotension,sepsis staph aureus respiratory failure and increase WBC. Had aspiration pneumonia, developed sepsis with ARF again creatinine declined slightly post hydration he also had retroperitoneal bleed Klebsiella ESBL pos UTI on Ceftazidime hx of suspected Transverse Myelitis treated with steroids Patient dialysis discontinued as ARF resolved off vent need upkeep worker rehab Avoid Nephrotoxins. Started on Lasix Na 150 need free water and decrease Lasix to daily dose Nephrology to follow PRN bases (2) CKD (chronic kidney disease) stage 3, GFR 30-59 ml/min ICD Codes: N18.3 - Chronic kidney disease, stage 3 (moderate) Status: Chronic Plan: Ultrasound revealed chronic kidney disease there is no kidney stones (3) Diabetes ICD Codes: E11.9 - Type 2 diabetes mellitus without complications Plan: Continue to monitor (4) Distal end of ulna fracture, closed ICD Codes: S52.609A - Unspecified fracture of lower end of unspecified ulna, initial encounter for closed fracture Status: Acute Plan: Orthopedic is following Problem Qualifiers (1) Acute renal failure: Qualified Codes: N17.9 - Acute kidney failure, unspecified Laura Liao MD Mar 26, 2017 15:07
[2017-03-26] MEDS: FREE WATER G-TUBE SCH ×2 (17:32→23:26)
[2017-03-26] MEDS: ATORVASTATIN 10 MG TAB PO SCH (23:25)
[2017-03-27] VITALS (9 sets, daily range): BP systolic 130–185; BP diastolic 70–95; PULSE 69–99; RESP 18–22; TEMP 96.9–98.9; O2SAT 95–99
[2017-03-27] MEDS: INSULIN NovoLIN REGULAR SUPPLEMENTAL SCALE SQ SCH ×4 (02:00→20:00)
[2017-03-27] MEDS: oxyCODONE HCL ORAL CONC 5 MG/0.25 ML SYRINGE PO SCH ×5 (02:53→23:43)
[2017-03-27] MEDS: RESP: ALBUTEROL 2.5 MG/IPRATROPIUM 0.5 MG NEB (SCH) NEB ×4 (05:31→22:36)
[2017-03-27] MEDS: FREE WATER G-TUBE SCH ×5 (05:42→23:45)
[2017-03-27] MEDS: HYDROCORTISONE SOD SUCCINATE 100 MG VIAL IV PUSH SCH ×4 (05:42→23:45)
[2017-03-27] MEDS: cefTAZidime INJ 2,000 MG in SODIUM CHLORIDE 0.9% INJ 100 ML IV SCH ×3 (05:42→23:38)
[2017-03-27] MEDS: CHLORHEXIDINE 0.12% (ORAL KIT) 15 ML CUP MT SCH ×2 (08:00→20:00)
[2017-03-27] MEDS: INSULIN DETEMIR 100 UNITS/ML VIAL SQ SCH ×2 (08:19→23:38)
[2017-03-27] MEDS: FUROSEMIDE 20 MG/2 ML VIAL IV PUSH SCH (08:21)
[2017-03-27] MEDS: amLODIPine BESYLATE 5 MG TAB PO SCH (08:24)
[2017-03-27] MEDS: LACTOBACILLUS ACIDOPHILUS TAB PO SCH ×3 (08:24→18:03)
[2017-03-27] MEDS: ATENOLOL 25 MG TAB PO SCH ×2 (08:24→23:39)
[2017-03-27] MEDS: LANSOPRAZOLE SOLUTAB 30 MG TAB NG SCH ×2 (08:25→23:39)
[2017-03-27 08:47] LABS: HEMATOCRIT 31.5 % (39.0-51.0); MEAN CELL VOLUME 90.7 FL (80.0-100.0); MEAN CORPUSCULAR HEMOGLOBIN 28.6 PG (27.0-34.0); MEAN CORPUSCULAR HGB CONC 31.5 % (32.0-36.0); PLATELET COUNT 335 TH/MM3 (150-450); RED BLOOD COUNT 3.47 MIL/MM3 (4.50-5.90); RED CELL DISTRIBUTION WIDTH 16.8 % (11.6-17.2); REVIEW FLAG FINAL; WHITE BLOOD COUNT 21.6 TH/MM3 (4.0-11.0)
[2017-03-27] MEDS: SODIUM CHLORIDE 0.9% FLUSH 10 ML FLUSH IV FLUSH SCH ×3 (09:00→23:38)
[2017-03-27 09:43] LABS: BICARBONATE 31.5 MEQ/L (21.0-32.0)
[2017-03-27 09:53] LABS: POTASSIUM 2.7 MEQ/L (3.5-5.1)
[2017-03-27] MEDS: POTASSIUM CHLOR 20 MEQ PREMIX 100 ML IV SCH ×2 (13:02→16:09)
--- NOTE | 2017-03-27 13:14 | HHI.IDPN ---
Subjective Subjective Remarks Patient is a 62-year-old male, admitted to the hospital for evaluation of pain in his right wrist. He gave a history of falling about a week ago and apparently had immediate pain in the right wrist. He did not seek any medical attention initially because reportedly he was very busy. He eventually presented, and he was found to have a distal ulnar fracture on plain films. He also had some redness and swelling. Orthopedics saw the patient, and was being treated conservatively with the splint. During this hospitalization also he started complaining of generalized weakness but more so in his lower extremity than his upper extremity. He had swelling in both lower extremity which revealed evidence of DVT in the posterior tibial veins. Neurology had seen the patient and he underwent lumbar puncture which apparently was traumatic. Patient was therefore not given anticoagulation because of the traumatic LP, and he underwent placement of an IVC filter on January 25. Patient had another lumbar puncture on February 01. He was felt to have transverse myelitis, and he was given high-dose IV Solu-Medrol from January 27 to February 02. There was apparently some improvement in his weakness. The imaging studies done for his weakness showed some spinal stenosis, and neurosurgery was consult that and recommended that there was no surgical intervention to be done. Patient has been stabilizing, but last night apparently deteriorated, and he ended up getting intubated, and had significant hypotension requiring pressors. There was also an ultrasound done of his left upper extremity which showed DVT, and there was evidence of superior 2 thrombophlebitis. Vascular surgery was consult to it and he had IND on his left upper extremity. Patient has had some fevers since yesterday. 2 blood cultures were done yesterday and they're now reported as growing gram-positive cocci in [place] in clusters. He is currently sedated and intubated. He is on Levophed and vasopressin. A central line was placed as well as a femoral a line. He apparently had an IV in his left upper extremity and that was removed yesterday. Patient also has history of chronic kidney disease, and nephrology evaluated the patient. He was just being monitored for his renal insufficiency. Infectious disease consultation has been requested to evaluate the patient. Notes reviewed Temps ok BP good Tolerating T-piece Out of ICU Awake and following some commands Has good UO Creatinine improving S/P trach S/P PEG Antibiotics Fortaz IV - to finish today Past Medical History Reviewed Allergies: Coded Allergies: levofloxacin (Verified Allergy, Severe, 01/22/17) Objective . Vital Signs Date Time Temp Pulse Resp B/P (MAP) Pulse Ox O2 Delivery O2 Flow Rate FiO2 03/27/17 12:48 97.9 94 22 185/95 (125) 99 03/27/17 08:56 96 T-piece 5.00 28 03/27/17 08:22 97.4 80 20 159/86 (110) 98 03/27/17 08:00 96 T-Piece 5.00 28 03/27/17 05:38 96 T-piece 5.00 28 03/27/17 04:00 98.8 82 18 171/81 (111) 96 03/27/17 03:54 18 03/27/17 01:20 96.9 99 18 174/93 (120) 96 03/27/17 00:31 96 T-Piece 5.00 28 Humidified 03/26/17 22:36 96.1 76 20 182/87 (118) 95 03/26/17 22:30 85 03/26/17 22:30 96 T-Piece 5.00 28 03/26/17 17:15 97 T-piece 28 03/26/17 16:15 96.4 87 20 160/81 (107) 98 03/26/17 14:00 89 03/27/17 03/27/17 03/28/17 15:00 23:00 07:00 Intake Total 100 ml Balance 100 ml Tube Irrigant 100 ml . Laboratory Tests Test 03/25/17 15:58 03/27/17 08:06 White Blood Count 26.3 TH/MM3 21.6 TH/MM3 Red Blood Count 3.73 MIL/MM3 3.47 MIL/MM3 Hemoglobin 10.7 GM/DL 9.9 GM/DL Hematocrit 34.7 % 31.5 % Mean Corpuscular Volume 92.9 FL 90.7 FL Mean Corpuscular Hemoglobin 28.6 PG 28.6 PG Mean Corpuscular Hemoglobin Concent 30.8 % 31.5 % Red Cell Distribution Width 17.0 % 16.8 % Platelet Count 375 TH/MM3 335 TH/MM3 Mean Platelet Volume 9.5 FL 9.0 FL Neutrophils (%) (Auto) 90.7 % Lymphocytes (%) (Auto) 2.8 % Monocytes (%) (Auto) 5.9 % Eosinophils (%) (Auto) 0.4 % Basophils (%) (Auto) 0.2 % Neutrophils # (Auto) 23.9 TH/MM3 Lymphocytes # (Auto) 0.7 TH/MM3 Monocytes # (Auto) 1.6 TH/MM3 Eosinophils # (Auto) 0.1 TH/MM3 Basophils # (Auto) 0.1 TH/MM3 CBC Comment AUTO DIFF Differential Total Cells Counted 100 Neutrophils % (Manual) 83 % Band Neutrophils % 2 % Lymphocytes % 3 % Monocytes % 7 % Eosinophils % 1 % Neutrophils # (Manual) 23.4 TH/MM3 Metamyelocytes 2 % Myelocytes 2 % Differential Comment FINAL DIFF MANUAL Platelet Estimate NORMAL Platelet Morphology Comment NORMAL Laboratory Tests Test 03/25/17 15:58 03/27/17 08:06 Blood Urea Nitrogen 68 MG/DL 63 MG/DL Creatinine 1.13 MG/DL 1.05 MG/DL Random Glucose 133 MG/DL 115 MG/DL Albumin 2.0 GM/DL Calcium Level 8.2 MG/DL 8.1 MG/DL Phosphorus Level 2.3 MG/DL Sodium Level 150 MEQ/L 153 MEQ/L Potassium Level 3.3 MEQ/L 2.7 MEQ/L Chloride Level 110 MEQ/L 113 MEQ/L Carbon Dioxide Level 30.3 MEQ/L 31.5 MEQ/L Anion Gap 10 MEQ/L 9 MEQ/L Estimat Glomerular Filtration Rate 66 ML/MIN 72 ML/MIN Imaging Chest X-Ray 03/14/17 0000 Signed Impressions: Service Date/Time: Tuesday, March 14, 2017 13:41 - CONCLUSION: 1. Tracheostomy in good position. 2. Left lower lung infiltrates and left pleural effusion. Candido Patton MD Aortography 02/28/17 0000 Signed Impressions: Service Date/Time: Tuesday, February 28, 2017 08:01 - CONCLUSION: 1. Active hemorrhage from distal right lateral sacral and iliolumbar branches successfully coil and Gelfoam embolized, as above. Juan Bhakta MD Abdomen/Pelvis CT 02/28/17 0000 Signed Impressions: Service Date/Time: Tuesday, February 28, 2017 06:51 - CONCLUSION: 1. The right retroperitoneal hematoma has increased in size, as above. There are 2 serpiginous arterially enhancing structures visualized, one in the right psoas muscle and another extending into the hematoma at the right iliac fossa. These could represent sites of continued active bleeding. 2. Stable moderate size left and small right pleural effusion with associated compressive atelectasis. 3. Stable small volume of free fluid in the abdomen and pelvis. There is also anasarca. The findings concerning the retroperitoneal hematoma were discussed with Dr. Aguiar via telephone at approximately 7: 10 AM on 02/28/2017. Angelo Allen MD Chest CT 02/27/17 0000 Signed Impressions: Service Date/Time: Monday, February 27, 2017 18:12 - CONCLUSION: 1. Bilateral pleural effusions with bibasilar atelectasis, left greater than right. Tom Sanchez MD Abdomen X-Ray 02/26/17 0000 Signed Impressions: Service Date/Time: Sunday, February 26, 2017 14:52 - CONCLUSION: 1. Nonobstructive bowel gas pattern. Juan Bhakta MD Upper Extremity Ultrasound 02/10/17 0000 Signed Impressions: Service Date/Time: Friday, February 10, 2017 18:46 - CONCLUSION: Occlusive thrombus in the cephalic and basilic veins. Benjamin Person MD Lung Scan- Nuclear Medicine 02/10/17 0000 Signed Impressions: Service Date/Time: Friday, February 10, 2017 22:17 - CONCLUSION: Low probability pulmonary embolism. Candido Patton MD Head CT 02/10/17 0000 Signed Impressions: Service Date/Time: Friday, February 10, 2017 23:51 - CONCLUSION: Negative noncontrast CT brain. Candido Patton MD Wrist X-Ray 02/06/17 0000 Signed Impressions: Service Date/Time: Monday, February 06, 2017 12:50 - CONCLUSION: Minimally displaced distal radius and ulnar fractures. Armando Dodd MD Lumbar Puncture Fluoroscopy 02/01/17 0000 Signed Impressions: Service Date/Time: January 09:35 - CONCLUSION: Uncomplicated fluoroscopically guided lumbar puncture. CSF was clear. Nabeel Peralta MD Head Magnetic Resonance Angiography 01/27/17 0000 Signed Impressions: Service Date/Time: Friday, January 27, 2017 10:33 - CONCLUSION: No intracranial vascular abnormality is identified. There is no aneurysm visualized. Angelo Allen MD IVC Filter Placement X-Ray 01/25/17 Signed Impressions: Service Date/Time: January 10:29 - CONCLUSION: Uncomplicated inferior vena cava filter placement as above. Yung Fowler MD Thoracic Spine MRI 01/24/17 Signed Impressions: Service Date/Time: Tuesday, January 24, 2017 22:29 - CONCLUSION: 1. Mild degenerative spondylosis most prominently at T11-L1 with slight effacement of the anterior thecal sac and left lateral recess. No significant neural foraminal stenosis. 2. No acute fracture. Juan Bhakta MD Renal Ultrasound 01/23/17 Signed Impressions: Service Date/Time: Monday, January 23, 2017 08:53 - CONCLUSION: 1. Evidence of chronic parenchymal disease of both kidneys. No obstructive uropathy or other acute abnormality demonstrated. 2. Trace ascites, nonspecific. Angelo Garrido MD Lumbar Spine MRI 01/23/17 Signed Impressions: Service Date/Time: Monday, January 23, 2017 17:01 - CONCLUSION: 1. At L4-5 is a broad-based disc protrusion with severe central canal and lateral recess stenosis and flattening of the exiting right L4 nerve root. 2. L5-S1 there is a disc protrusion and moderate stenosis with flattening of the exiting L5 nerve roots bilaterally. 3. At L3-4 there is a moderate to severe central stenosis and lateral recess stenosis with mild foraminal stenosis. 4. No acute fracture or spondylolisthesis. Trace Holloway MD Lower Extremity Ultrasound 01/23/17 Signed Impressions: Service Date/Time: Monday, January 23, 2017 09:53 - CONCLUSION: Bilateral focal lower extremity DVT involving the posterior tibial veins. Angelo Garrido MD Cervical Spine MRI 01/23/17 Signed Impressions: Service Date/Time: Monday, January 23, 2017 17:01 - CONCLUSION: 1. Multilevel cervical spine degenerative changes as above. 2. Mild degrees of spinal stenosis at C3/C4-C6/C7. No cord compression or cord signal abnormality. 3. Age indeterminate left paracentral/foraminal disc protrusion at C6/C7. 4. Multilevel foraminal stenosis, most severe on the left at C6/C7. Please see individual levels above. 5. No fracture or subluxation of the cervical spine. Angelo Garrido MD Brain MRI 01/23/17 0000 Signed Impressions: Service Date/Time: Monday, January 23, 2017 17:01 - CONCLUSION: 1. No acute stroke or other acute intracranial abnormality demonstrated. 2. Moderate severity chronic white matter changes, nonspecific but most likely related to chronic small vessel disease. 3. Few scattered tiny lacunar infarcts of the brainstem. 4. Given the findings are not entirely specific, clinical evaluation for possible multiple sclerosis recommended. Angelo Garrido MD Knee X-Ray [id number]/22/[id number] Signed Impressions: Service Date/Time: Sunday, January 22, 2017 21:17 - CONCLUSION: 1. Evidence of moderate to large joint effusion. 2. No acute fracture or malalignment. 3. Mild 3 compartment osteoarthritic change. Benjamin Person MD Hip and Pelvis X-Ray [id number]/22/[id number] Signed Impressions: Service Date/Time: Sunday, January 22, 2017 21:10 - CONCLUSION: 1. Mild to moderate degenerative change of both hips with no acute fracture or malalignment. There is flattening and remodeling of the right humeral head. Benjamin Person MD Physical Exam GENERAL: Awake and following commands, NAD, on T-piece SKIN: Cool and dry. No generalized rash. Still edematous EYES: [place] conjunctiva. No petechia or hemorrhage. EARS, NOSE AND THROAT: Nose without bleeding or purulent nasal discharge. Dry oral mucosa NECK: Trachea midline. Supple and no meningeal signs. Trach site ok CARDIOVASCULAR: Regular rate and rhythm. Soft heart sounds. No murmurs RESPIRATORY: Coarse BS bilaterally, decreased at bases. ABDOMEN: Soft, mildly distended, PEG site ok. Mild tenderness, no guarding EXTREMITIES: No clubbing, cyanosis. Edema feet better; edema hands better : very swollen scrotum, has a lot of sediment in his cath tubing NEUROLOGICAL: awake and following commands PSYCHIATRIC: Calm and cooperative LINE: Lines with no evidence of infection Assessment & Plan Remarks IMPRESSION Fevers - better - had Kleb and Sten mal in sputum, S/P Rx - now with Pseudomonas - PSAE R to Imipenem Leukocytosis HCAP, Pseudomonas now - previously Kleb and Sten mal, S/P Rx with Bactrim Shock, resolved Large R retroperitoneal bleed, S/P multiple transfusions and S/P coiling of bleeders Elevated amylase and lipase, better Anemia, due to bleed, retroperitoneal MSSA sepsis, due to suppurative thrombophlebitis LUE, S/P I and D and excision of portion of cephalic vein - S/P Rx Respiratory failure, has had several intubations - reintubated again 02/28, extubated 03/11 - reintubated again - S/P trach 03/14 Recent Rx 7 days high dose solumedrol for transverse myelitis Wu LE DVT has IVC filter placed 01/25 - ?hypercoagulable state Chronic kidney disease, worsening creatinine - shock and compression of ureter by hematoma Known DM, HTN Gouty tophi both hands and feet Diarrhea, C diff negative UTI, GNR - repeat UA better, but a lot of sediment in the urine Thrombocytopenia, no evidence of DIC, ?meds, ?infection, ?due to bleed - improving RECOMMENDATION Continue Fortaz IV - to finish today S/P Rx for MSSA sepsis Follow CBC Monitor progress Irene Edwards MD Mar 27, 2017 13:14
--- NOTE | 2017-03-27 13:35 | HHI.HCPN ---
Reason for visit a. To assist with evaluation and management of symptoms including: shortness of breath, pain, debility b. To assist medical decision maker(s) with: better understanding of current medical conditions; weighing benefits/burdens of medical treatment options; making medical treatment decisions. Subjective/Interval History Mr Kerr is a 62 years old male with a past medical history of hypertension, asthma, diabetes, hyperlipidemia, chronic kidney disease and gout. Patient presented to the ED on 01/22/17 complaining of bilateral knee and right arm pain after a mechanical fall 4 or 5 days prior to coming to the ER. Patient has been experiencing progressive weakness of bilateral lower extremities as well as bilateral upper extremities prior to ER visit. Patient seen in room 1534, was transferred yesterday from ICU. Patient is awake , alert and will follow simple commands with all 4 extremities. Denies pain by shaking her head for "no". Remains on T-Bruce FiO2 28% , no respiratory distress noted. O2 saturation mid to high 90s. Patient trying to mouth some words. Patient remains afebrile. SBP 150s to [id number]. Laboratory workup revealing WBC 21.6, hemoglobin 9.9, hematocrit 31.5, platelet count 335, sodium 153, potassium 2.7, BUN/creatinine 63/1.05. Nephrology and ID following. Case discussed with bedside RN Kylie Deras. . Family/friend interactions No family at bedside. Advance Directives Living Will: Never completed Health Care Surrogate: Never completed Durable Power of Church Organist: Never completed Advance Directive Specifics Documented care wishes: No known documented care wishes have been completed. . Objective Vital Signs Date Time Temp Pulse Resp B/P (MAP) Pulse Ox O2 Delivery O2 Flow Rate FiO2 03/27/17 12:48 97.9 94 22 185/95 (125) 99 03/27/17 08:56 96 T-piece 5.00 28 03/27/17 08:22 97.4 80 20 159/86 (110) 98 03/27/17 08:00 96 T-Piece 5.00 28 03/27/17 05:38 96 T-piece 5.00 28 03/27/17 04:00 98.8 82 18 171/81 (111) 96 03/27/17 03:54 18 03/27/17 01:20 96.9 99 18 174/93 (120) 96 03/27/17 00:31 96 T-Piece 5.00 28 Humidified 03/26/17 22:36 96.1 76 20 182/87 (118) 95 03/26/17 22:30 85 03/26/17 22:30 96 T-Piece 5.00 28 03/26/17 17:15 97 T-piece 28 03/26/17 16:15 96.4 87 20 160/81 (107) 98 03/26/17 14:00 89 Intake & Output 03/27/17 03/27/17 07:00 19:00 Intake Total 200 ml 100 ml Output Total 1250 ml Balance -1050 ml 100 ml IV Total 200 ml Tube Irrigant 100 ml Output Urine Total 800 ml Stool Total 450 ml Tube Feeding Residual Discard 0 ml Physical Exam CONSTITUTIONAL/GENERAL: This is an adequately nourished patient, trached on T piece, 28% TUBES/LINES/DRAINS: PEG tube, Tracheostomy, PIVs, FC SKIN: No jaundice. Ecchymoses on upper extremities. Sacral pressure wound and L heel pressure injury. Afebrile. Not diaphoretic. HEAD: Atraumatic. Normocephalic. EYES: Pupils equal and round, slight reaction.No scleral icterus. No injection or drainage. Fundi not examined. ENT: Trached with no sedation. Nose without bleeding or purulent drainage. Moist oral mucosa. NECK: Trachea midline. Supple, nontender. CARDIOVASCULAR: Regular rate and rhythm without murmurs, gallops, or rubs. No JVD. RESPIRATORY/CHEST: Symmetric, unlabored respirations. rhonchi to auscultation. Breath sounds equal bilaterally. GASTROINTESTINAL: Abdomen soft, non-tender, nondistended. No guarding. Bowel sounds present. Nepro-Goal rate 55ml/hr GENITOURINARY: Without palpable bladder distension. Sloan catheter in with clear urine. Scrotal edema. MUSCULOSKELETAL: Gout tophi to fingers, knees, elbows and both ankles. Trace edema to all 4 extremities. NEUROLOGICAL: Tracheostomy on T-bruce 28%. Patient is awake and alert , followed simple commands with all 4 extremities, trying to mouth some words. PSYCHIATRIC: No obvious anxiety/depression. no apparent hallucinations or other psychotic thought process. . Diagnostic Tests Laboratory Laboratory Tests Test 03/25/17 15:58 03/27/17 08:06 White Blood Count 26.3 TH/MM3 (4.0-11.0) 21.6 TH/MM3 (4.0-11.0) Red Blood Count 3.73 MIL/MM3 (4.50-5.90) 3.47 MIL/MM3 (4.50-5.90) Hemoglobin 10.7 GM/DL (13.0-17.0) 9.9 GM/DL (13.0-17.0) Hematocrit 34.7 % (39.0-51.0) 31.5 % (39.0-51.0) Mean Corpuscular Volume 92.9 FL (80.0-100.0) 90.7 FL (80.0-100.0) Mean Corpuscular Hemoglobin 28.6 PG (27.0-34.0) 28.6 PG (27.0-34.0) Mean Corpuscular Hemoglobin Concent 30.8 % (32.0-36.0) 31.5 % (32.0-36.0) Red Cell Distribution Width 17.0 % (11.6-17.2) 16.8 % (11.6-17.2) Platelet Count 375 TH/MM3 (150-450) 335 TH/MM3 (150-450) Mean Platelet Volume 9.5 FL (7.0-11.0) 9.0 FL (7.0-11.0) Neutrophils (%) (Auto) 90.7 % (16.0-70.0) Lymphocytes (%) (Auto) 2.8 % (9.0-44.0) Monocytes (%) (Auto) 5.9 % (0.0-8.0) Eosinophils (%) (Auto) 0.4 % (0.0-4.0) Basophils (%) (Auto) 0.2 % (0.0-2.0) Neutrophils # (Auto) 23.9 TH/MM3 (1.8-7.7) Lymphocytes # (Auto) 0.7 TH/MM3 (1.0-4.8) Monocytes # (Auto) 1.6 TH/MM3 (0-0.9) Eosinophils # (Auto) 0.1 TH/MM3 (0-0.4) Basophils # (Auto) 0.1 TH/MM3 (0-0.2) CBC Comment AUTO DIFF Differential Total Cells Counted 100 Neutrophils % (Manual) 83 % (16-70) Band Neutrophils % 2 % (0-6) Lymphocytes % 3 % (9-44) Monocytes % 7 % (0-8) Eosinophils % 1 % (0-4) Neutrophils # (Manual) 23.4 TH/MM3 (1.8-7.7) Metamyelocytes 2 % (0-1) Myelocytes 2 % (0-0) Differential Comment FINAL DIFF MANUAL Platelet Estimate NORMAL (NORMAL) Platelet Morphology Comment NORMAL (NORMAL) Blood Urea Nitrogen 68 MG/DL (7-18) 63 MG/DL (7-18) Creatinine 1.13 MG/DL (0.60-1.30) 1.05 MG/DL (0.60-1.30) Random Glucose 133 MG/DL (74-106) 115 MG/DL (74-106) Albumin 2.0 GM/DL (3.4-5.0) Calcium Level 8.2 MG/DL (8.5-10.1) 8.1 MG/DL (8.5-10.1) Phosphorus Level 2.3 MG/DL (2.5-4.9) Sodium Level 150 MEQ/L (136-145) 153 MEQ/L (136-145) Potassium Level 3.3 MEQ/L (3.5-5.1) 2.7 MEQ/L (3.5-5.1) Chloride Level 110 MEQ/L (98-107) 113 MEQ/L (98-107) Carbon Dioxide Level 30.3 MEQ/L (21.0-32.0) 31.5 MEQ/L (21.0-32.0) Anion Gap 10 MEQ/L (5-15) 9 MEQ/L (5-15) Estimat Glomerular Filtration Rate 66 ML/MIN (>89) 72 ML/MIN (>89) Result Diagram: 03/27/1780503/27/17 0806 Procedures 01/25/2017- Retrievable IVC Filter placement 01/26/17-lumbar puncture with fluoroscopy-by interventional radiology 02/01/17- lumbar puncture fluoroscopy by interventional radiology 02/10/17- Endotracheal Intubation 02/10/17-left IJ central venous line placed 02/10/17-left femoral arterial line placed 02/11/17-Diagnostic and therapeutic bronchoscopy with bronchoalveolar lavage 02/11/17-Left upper extremity incision and debridement with excision of septic cephalic vein 02/13/17- Extubated 02/20/17- endotracheal intubation 02/20/17- Left subclavian central line placement 02/20/17-Right radial A-line placement 02/22/17-EGD/colonoscopy 02/28/17-right radial a line 02/28/17- Endotracheal intubation 02/28/17- right sided introducer catheter placement 02/28/17- Right IJ central line placement 02/28/17-Right chest tube placement 02/28/17- Embolization of inferior and superior sacral branches of right internal iliac artery 03/01/17- Hemodialysis access catheter 03/03/17-Right IJ central line placement 03/11/17-Extubated 03/13/17- Endotracheal intubation 03/14/17-Tracheostomy placement 03/15/17-PEG tube placement . Assessment and Plan Disease Oriented Problem List: (1) Acute respiratory failure (2) Septic shock (3) Aspiration pneumonia (4) Acute renal failure (5) CKD (chronic kidney disease) stage 3, GFR 30-59 ml/min (6) Cardiomyopathy (7) DVT of lower extremity, bilateral (8) Thrombophlebitis arm (9) Diabetes mellitus (10) Gout (11) HTN (hypertension) (12) Hyperlipidemia Symptom Scale: (1) Shortness of breath 0-10 Scale: Unable to quantify Comment: Currently trached on T piece 28% . (2) Debility 0-10 Scale: Unable to quantify Comment: Progressive. . (3) Pain 0-10 Scale: Unable to quantify Comment: History of falls, gout, arthritis, and currently bedbound. . Pertinent Non-Medical Issues Psychosocial:Patient was born and raised in [place], [place]. Patient was once for 20 years, now and has 2 adult sons. 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 He recently resigned due to failing health. Spiritual: No gnosticist affiliation Legal: Per [place] statutes, in the absence of written advanced directives healthcare proxy decision making falls to the patient's 2 adult children. Patient's son (Davie) lives locally and wishes to participate in the role of the healthcare proxy decision maker. Palliative care has attempted to contact Arnel, has not call back. Patient`s sister Deb and patients brother verbalized that they have been updating Arnel on patient`s medical status. Ethical issues impacting care: No known ethical issues impacting care at this time. . Important Contacts Son-Davie Kerr - Son-Arnel Kerr- -cell -home Sister-Deb Curry . Prognosis Mr Kerr is a 62 years old male with a past medical history of hypertension, asthma, diabetes, hyperlipidemia, chronic kidney disease and gout. Patient presented to the ED on 01/22/17 complaining of bilateral knee and right arm pain after a mechanical fall 4 or 5 days prior to coming to the ER. Clinical course complicated with increased weakness leading to numerous diagnostic work ups for possible transverse myelitis, DVTs, retroperitoneal hematoma, aspiration pneumonia, intubation x 4 times, septic and hemorrhagic shock requiring support with pressors and multiple pRBC, FFP transfusions as well as platelets and cryo , renal failure requiring hemodialysis and sacral wound Given ongoing comorbidities, and prolonged hospitalization, patient remains at risk for further complications, deterioration and decline. Code Status: Full Code Plan PLAN: Legal decision maker: Patient is currently intubated, sedated on a mechanical ventilation and is not able to make any medical decisions for himself at this time. It is unclear if patient will regain capacity to make medical decisions at this time. Patient has 2 adult sons Davie Kerr and Arnel Kerr. According to [place] Statute, his two aforementioned sons will serve as his health care proxys. Patient`s son Davie is acting in the role of HCP decision maker independently at this time given that he is the one who is reasonably available for consultation. Goals: 03/27/17- Remain Aggressive. Per case management note dated 03/26/17 "[address] bed wait has been so long that pt no longer meets LTAC criteria". Now has a referral to [facility]. CODE STATUS: Full Code SYMPTOMS: * Shortness of breath: Multifactorial. Patient has had aspiration pneumonia. Patient has been intubated 4 times this hospitalization. Patient has a tracheostomy. Currently on T-Bruce 28%. Patient on duonebs. Patient also on Hydrocortisone 50mg q 6 hours. * Pain: Patient presented initially complaining of pain to right wrist and bilateral knees after a mechanical fall. Patient has a history of gout, arthritis, multiple falls and is currently bedbound. Patient on Oxycodone q 4 hours ATC. Patient does not appear to be in pain and currently denies pain by shaking head for "no". Patient also on Hydrocortisone. * Debility: Progressive. Patient has had decline in his health for the past 4 months, including progressively increased weakness and difficulty ambulating and prolonged hospitalization with multiple setbacks. Patient remains at high risk for further physical deconditioning and debility. PT and OT following with patient. PT and OT following. Recommending continuing getting patient OOB to a stretcher chair Patient may benefit from PT and OT at rehab. Palliative care will continue to follow the patient during hospital course as condition evolves, to assist patient/decision-maker with understanding of their medical conditions, weighing benefits/burdens of treatment options, for clarification of goals of treatment. Additionally will assist with any symptoms of palliative concern. . Aftab Cartwright Mar 27, 2017 13:35
--- NOTE | 2017-03-27 14:01 | RADRPT ---
EXAM DATE/TIME: 03/27/2017 13:21 [facility] COMPARISON: WRIST RIGHT LIMITED(AP & LAT), February 06, 2017, 12:50. INDICATIONS : Right wrist pain. MEDICAL HISTORY : Hypertension. Diabetes mellitus type 2. Gout SURGICAL HISTORY : Renal stents. ENCOUNTER: Subsequent ACUITY: 1 day PAIN SCORE: Non-responsive. LOCATION: Right wrist FINDINGS: AP and lateral views of the right wrist demonstrate diffuse undermineralization of the bones. There i s a partially visualized oblique lucency in the distal ulna diametaphysis. This is in the area of fra cture documented previously. There is mild transverse sclerosis in the lateral aspect of the distal r adial metaphysis. No radial fracture is visualized. There is radiocarpal joint space narrowing. Sever e osteoarthritis is present at the first carpometacarpal joint. Mild soft tissue swelling is present at the posterior aspect of the wrist. No radiopaque foreign body is visualized. CONCLUSION: 1. No acute fracture is identified. A portion of the previously documented distal ulna fracture remai ns visualized. 2. 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 Angelo Allen MD on March 27, 2017 at 13:58 Board Certified Radiologist. This report was verified electronically.
[2017-03-27 14:38] LABS: MAGNESIUM 2.1 MG/DL (1.5-2.5)
[2017-03-27] MEDS ORDERED: amLODIPine BESYLATE 5 MG TAB PO ONE (15:15)
--- NOTE | 2017-03-27 15:18 | HHI.PR ---
Subjective Remarks The patient was resting comfortably in bed. He was reported as agitated earlier but has calmed down. He had no acute complaints. Discussed with nursing. Objective Vitals Vital Signs Date Time Temp Pulse Resp B/P (MAP) Pulse Ox O2 Delivery O2 Flow Rate FiO2 03/27/17 12:48 97.9 94 22 185/95 (125) 99 03/27/17 08:56 96 T-piece 5.00 28 03/27/17 08:22 97.4 80 20 159/86 (110) 98 03/27/17 08:00 96 T-Piece 5.00 28 03/27/17 05:38 96 T-piece 5.00 28 03/27/17 04:00 98.8 82 18 171/81 (111) 96 03/27/17 03:54 18 03/27/17 01:20 96.9 99 18 174/93 (120) 96 03/27/17 00:31 96 T-Piece 5.00 28 Humidified 03/26/17 22:36 96.1 76 20 182/87 (118) 95 03/26/17 22:30 85 03/26/17 22:30 96 T-Piece 5.00 28 03/26/17 17:15 97 T-piece 28 03/26/17 16:15 96.4 87 20 160/81 (107) 98 I/O 03/26/17 03/26/17 03/26/17 03/27/17 03/27/17 03/27/17 07:00 15:00 23:00 07:00 15:00 23:00 Intake Total 959 ml 100 ml 214 ml 200 ml 400 ml Output Total 1550 ml 650.0 ml 1250 ml Balance -591 ml 100 ml -436.0 ml -1050 ml 400 ml Intake Oral 0 ml IV Total 243 ml 100 ml 200 ml Tube Feeding 596 ml 114 ml Tube Irrigant 100 ml 400 ml Other 120 ml Output Urine Total 1500 ml 650 ml 800 ml Stool Total 50 ml 450 ml Tube Feeding Residual Discard 0 ml Result Diagram: 03/27/1780503/27/17805 Imaging Last Impressions Wrist X-Ray 03/27/17 0000 Signed Impressions: Service Date/Time: Monday, March 27, 2017 13:21 - CONCLUSION: 1. No acute fracture is identified. A portion of the previously documented distal ulna fracture remains visualized. 2. 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 Angelo Allen MD Chest X-Ray 03/14/17 0000 Signed Impressions: Service Date/Time: Tuesday, March 14, 2017 13:41 - CONCLUSION: 1. Tracheostomy in good position. 2. Left lower lung infiltrates and left pleural effusion. Candido Patton MD Aortography 02/28/17 0000 Signed Impressions: Service Date/Time: Tuesday, February 28, 2017 08:01 - CONCLUSION: 1. Active hemorrhage from distal right lateral sacral and iliolumbar branches successfully coil and Gelfoam embolized, as above. Juan Bhakta MD Abdomen/Pelvis CT 02/28/17 0000 Signed Impressions: Service Date/Time: Tuesday, February 28, 2017 06:51 - CONCLUSION: 1. The right retroperitoneal hematoma has increased in size, as above. There are 2 serpiginous arterially enhancing structures visualized, one in the right psoas muscle and another extending into the hematoma at the right iliac fossa. These could represent sites of continued active bleeding. 2. Stable moderate size left and small right pleural effusion with associated compressive atelectasis. 3. Stable small volume of free fluid in the abdomen and pelvis. There is also anasarca. The findings concerning the retroperitoneal hematoma were discussed with Dr. Aguiar via telephone at approximately 7: 10 AM on 02/28/2017. Angelo Allen MD Chest CT 02/27/17 0000 Signed Impressions: Service Date/Time: Monday, February 27, 2017 18:12 - CONCLUSION: 1. Bilateral pleural effusions with bibasilar atelectasis, left greater than right. Tom Sanchez MD Abdomen X-Ray 02/26/17 0000 Signed Impressions: Service Date/Time: Sunday, February 26, 2017 14:52 - CONCLUSION: 1. Nonobstructive bowel gas pattern. Juan Bhakta MD Upper Extremity Ultrasound 02/10/17 0000 Signed Impressions: Service Date/Time: Friday, February 10, 2017 18:46 - CONCLUSION: Occlusive thrombus in the cephalic and basilic veins. Benjamin Person MD Lung Scan- Nuclear Medicine 9/23/17 0000 Signed Impressions: Service Date/Time: Friday, February 10, 2017 22:17 - CONCLUSION: Low probability pulmonary embolism. Candido Patton MD Head CT 02/10/17 Signed Impressions: Service Date/Time: Friday, February 10, 2017 23:51 - CONCLUSION: Negative noncontrast CT brain. Candido Patton MD Lumbar Puncture Fluoroscopy 02/01/17 Signed Impressions: Service Date/Time: January 09:35 - CONCLUSION: Uncomplicated fluoroscopically guided lumbar puncture. CSF was clear. Nabeel Peralta MD Head Magnetic Resonance Angiography 01/27/17 Signed Impressions: Service Date/Time: Friday, January 27, 2017 10:33 - CONCLUSION: No intracranial vascular abnormality is identified. There is no aneurysm visualized. Angelo Allen MD IVC Filter Placement X-Ray 01/25/17 Signed Impressions: Service Date/Time: January 10:29 - CONCLUSION: Uncomplicated inferior vena cava filter placement as above. Yung Fowler MD Thoracic Spine MRI 01/24/17 Signed Impressions: Service Date/Time: Tuesday, January 24, 2017 22:29 - CONCLUSION: 1. Mild degenerative spondylosis most prominently at T11-L1 with slight effacement of the anterior thecal sac and left lateral recess. No significant neural foraminal stenosis. 2. No acute fracture. Juan Bhakta MD Renal Ultrasound 01/23/17 Signed Impressions: Service Date/Time: Monday, January 23, 2017 08:53 - CONCLUSION: 1. Evidence of chronic parenchymal disease of both kidneys. No obstructive uropathy or other acute abnormality demonstrated. 2. Trace ascites, nonspecific. Angelo Garrido MD Lumbar Spine MRI 01/23/17 Signed Impressions: Service Date/Time: Monday, January 23, 2017 17:01 - CONCLUSION: 1. At L4-5 is a broad-based disc protrusion with severe central canal and lateral recess stenosis and flattening of the exiting right L4 nerve root. 2. L5-S1 there is a disc protrusion and moderate stenosis with flattening of the exiting L5 nerve roots bilaterally. 3. At L3-4 there is a moderate to severe central stenosis and lateral recess stenosis with mild foraminal stenosis. 4. No acute fracture or spondylolisthesis. Trace Holloway MD Lower Extremity Ultrasound 01/23/17 Signed Impressions: Service Date/Time: Monday, January 23, 2017 09:53 - CONCLUSION: Bilateral focal lower extremity DVT involving the posterior tibial veins. Angelo Garrido MD Cervical Spine MRI 01/23/17 Signed Impressions: Service Date/Time: Monday, January 23, 2017 17:01 - CONCLUSION: 1. Multilevel cervical spine degenerative changes as above. 2. Mild degrees of spinal stenosis at C3/C4-C6/C7. No cord compression or cord signal abnormality. 3. Age indeterminate left paracentral/foraminal disc protrusion at C6/C7. 4. Multilevel foraminal stenosis, most severe on the left at C6/C7. Please see individual levels above. 5. No fracture or subluxation of the cervical spine. Angelo Garrido MD Brain MRI 01/23/17 Signed Impressions: Service Date/Time: Monday, January 23, 2017 17:01 - CONCLUSION: 1. No acute stroke or other acute intracranial abnormality demonstrated. 2. Moderate severity chronic white matter changes, nonspecific but most likely related to chronic small vessel disease. 3. Few scattered tiny lacunar infarcts of the brainstem. 4. Given the findings are not entirely specific, clinical evaluation for possible multiple sclerosis recommended. Angelo Garrido MD Knee X-Ray 01/22/172053 Signed Impressions: Service Date/Time: Sunday, January 22, 2017 21:17 - CONCLUSION: 1. Evidence of moderate to large joint effusion. 2. No acute fracture or malalignment. 3. Mild 3 compartment osteoarthritic change. Benjamin Person MD Hip and Pelvis X-Ray 01/22/172053 Signed Impressions: Service Date/Time: Sunday, January 22, 2017 21:10 - CONCLUSION: 1. Mild to moderate degenerative change of both hips with no acute fracture or malalignment. There is flattening and remodeling of the right humeral head. Benjamin Person MD Objective Remarks GENERAL: Resting in bed, in no apparent distress. HEENT: Normocephalic. Atraumatic. Pupils equal, round, reactive. NECK: Tracheostomy in place. CHEST: on T piece via tracheostomy, air entry decreased bilaterally at bases. CARDIOVASCULAR: S1-S2 regular, no gallop or murmur. ABDOMEN distended. No rigidity. Umbilical hernia is reducible. No guarding. PEG tube in place. : Positive scrotal edema Sloan in place. MUSCULOSKELETAL: Pulses 2+. 1+ bilateral upper and lower extremity edema. Clean white Bandage/discontinued wound VAC on left upper extremity. NEUROLOGICAL: Awake and alert, has spontaneous eye opening. Opens and closes eyes on command, on T piece via tracheostomy. Moves 4 limbs weakly to stimulation. Procedures IVC filter placement 01/25/2017 LP 01/26/2017 Medications and IVs Current Medications Medications (Trade) Dose Ordered Sig/Rosalia Route Start Time Stop Time Status Last Admin (NS Flush) 2 ml UNSCH PRN IV FLUSH 01/23/17 00:30 02/01/17 05:07 (NS Flush) 2 ml BID IV FLUSH 01/23/17 09:00 03/27/17 09:00 (Zofran Inj) 4 mg Q6H PRN IVP 01/23/17 00:30 02/26/17 17:23 (Narcan Inj) 0.4 mg UNSCH PRN IV 01/23/17 00:30 (Edna-Colace) 1 tab BID PO 01/23/17 09:00 Future Hold 02/24/17 20:31 (Dulcolax Supp) 10 mg DAILY PRN RECTAL 01/23/17 00:30 (Lipitor) 10 mg HS PO 01/24/17 21:00 Future hold 03/26/17 23:25 (Glucagon Inj) 1 mg UNSCH PRN OTHER 02/11/17 05:45 02/18/17 18:53 (Flomax) 0.4 mg Q12HR PO 02/17/17 15:00 Future Hold 02/26/17 08:49 (Lovenox Inj) 100 mg Q12H SQ 02/18/17 12:00 Future Hold 02/26/17 16:20 (Lactinex) 1 tab TID PO 02/19/17 13:00 03/27/17 13:02 (Apresoline Inj) 10 mg Q30M PRN IV PUSH 02/20/17 11:45 03/26/17 12:18 (D50w (Vial) Inj) 25 ml UNSCH PRN IV PUSH 02/20/17 12:45 03/27/17 13:20 (Questran Light Pkt) 4 gm Q12HR PO 02/25/17 21:00 Future Hold 02/27/17 10:32 (Aldactone) 25 mg DAILY PO 02/27/17 09:00 Future Hold (Peridex 0.12% Liq) 15 ml BID@08,20 MT 02/28/17 08:00 03/27/17 08:00 (Albuterol Neb) 2.5 mg Q2HR NEB PRN NEB 02/28/17 07:45 03/21/17 19:21 (NS Flush) UNSCH PRN IV FLUSH 03/01/17 13:00 (Heparin Inj) UNSCH PRN IV FLUSH 03/01/17 13:00 (NS Flush) DAILY IV FLUSH 03/04/17 09:00 03/26/17 09:00 (NS Flush) UNSCH PRN IV FLUSH 03/03/17 18:45 (Roxicodone Intensol Liq) 10 mg Q4H PO 03/05/17 14:00 03/27/17 12:56 (Prevacid Odt) 30 mg BID NG 03/07/17 21:00 03/27/17 08:25 (Tylenol 650 Mg/ 20 ml Liq) 650 mg Q6H PRN PO 03/09/17 10:15 03/14/17 05:24 (Trandate Inj) 20 mg Q4H PRN IV 03/12/17 04:30 03/17/17 12:25 (Tenormin) 25 mg Q12HR PO 03/12/17 10:00 03/27/17 08:24 (SoluCORTEF INJ) 50 mg Q6HR IV PUSH 03/14/17 18:00 03/27/17 13:01 (Epogen Inj) 10,000 units UNSCH PRN IV PUSH 03/17/17 11:30 03/22/17 10:52 (Norvasc) 5 mg DAILY PO 03/24/17 09:00 03/27/17 08:24 (Nitroglycerin 2% Oint) 2 inch Q6H PRN TOPICAL 03/23/17 14:00 Ceftazidime 2000 mg/Sodium Chloride 100 ml @ 200 mls/hr Q8H IV 03/25/17 21:00 03/27/17 23:00 03/27/17 05:42 (NovoLIN R SUPPLEMENTAL SCALE) 1 Q6H SQ 03/26/17 14:00 (Lasix Inj) 20 mg DAILY IV PUSH 03/27/17 09:00 03/27/17 08:21 (Free Water) 300 ml Q6HR G-TUBE 03/27/17 11:00 03/27/17 11:00 (Duoneb Neb) 1 ampule Q6HR NEB NEB 03/27/17 16:00 03/27/17 13:42 (K-Lyte Cl Eff) 25 meq Q12HR NG 03/27/17 21:00 (Levemir Inj) 10 units BID SQ 03/27/17 21:00 Potassium Phosphate 15 mmol/ Sodium Chloride 155 ml @ 38.75 mls/ hr ONCE ONCE IV 03/27/17 15:15 03/27/17 19:14 UNV Date of Insertion: Mar 03, 2017 Line: Central Venous Catheter Side: Right Location: Internal, Jugular A/P Problem List: (1) Transverse myelitis ICD Code: G37.3 - Acute transverse myelitis in demyelinating disease of central nervous system Status: Acute (2) Septic shock ICD Code: A41.9 - Sepsis, unspecified organism; R65.21 - Severe sepsis with septic shock Status: Resolved (3) HCAP (healthcare-associated pneumonia) ICD Code: J18.9 - Pneumonia, unspecified organism (4) Acute respiratory failure with hypoxia and hypercarbia ICD Code: J96.01 - Acute respiratory failure with hypoxia; J96.02 - Acute respiratory failure with hypercapnia Status: Resolved (5) Hyperlipidemia ICD Code: E78.5 - Hyperlipidemia, unspecified Status: Chronic (6) HTN (hypertension) ICD Code: I10 - Essential (primary) hypertension (7) DVT of lower extremity, bilateral ICD Code: I82.403 - Acute embolism and thrombosis of unspecified deep veins of lower extremity, bilateral (8) Diabetes mellitus with hyperglycemia ICD Code: E11.65 - Type 2 diabetes mellitus with hyperglycemia (9) Hypocalcemia ICD Code: E83.51 - Hypocalcemia (10) Hypernatremia ICD Code: E87.0 - Hyperosmolality and hypernatremia (11) Hypokalemia ICD Code: E87.6 - Hypokalemia (12) Acute metabolic encephalopathy ICD Code: G93.41 - Metabolic encephalopathy (13) Quadriparesis ICD Code: G82.50 - Quadriplegia, unspecified Status: Acute (14) BREEZY (acute kidney injury) ICD Code: N17.9 - Acute kidney failure, unspecified (15) Diarrhea ICD Code: R19.7 - Diarrhea, unspecified (16) Abdominal pain ICD Code: R10.9 - Unspecified abdominal pain (17) Hypoglycemia ICD Code: E16.2 - Hypoglycemia, unspecified (18) Urinary retention ICD Code: R33.9 - Retention of urine, unspecified (19) Acute hypoxemic respiratory failure ICD Code: J96.01 - Acute respiratory failure with hypoxia (20) Sepsis ICD Code: A41.9 - Sepsis, unspecified organism Assessment and Plan Acute metabolic encephalopathy- persistent Quadriparesis secondary to suspected transverse myelitis Recurrent falls Pain secondary to retroperitoneal hematoma. Suspected transverse myelitis. Received methylprednisolone 250 mg IV every 6 hours 01/27-02/02, started back on hydrocortisone 02/21/17, initially tapering to 50 mg IV every 8 hours starting received 1 dose at 2100 prior to becoming hypotensive. weaning hydrocortisone taper and stopped 03/09. Resumed hydrocortisone 50mg IV Q6hrly on 03/14 as patient became hypotensive following intubation on 03/13 requiring levophed. Continue 50 mg IV every 6 hours LP 01/26 and 02/01. CSF culture negative 01/26, 02/01 Oligoclonal bands negative. CSF/serum IgG index is not elevated. VDRL nonreactive. Cryptococcal antigen negative. Brain MRI 01/23 no acute stroke. Few scattered lacunar infarcts of the brainstem. Moderate chronic white matter changes. MRI cervical/thoracic spine- mild spinal stenosis C3/C4 to C6/C7. No cord compression. RPR negative Neurology has been following, Dr. Crenshaw. Repeat CT brain 02/10 - negative Continue PT/OT Continue oxycodone 10 mg every 4 hours scheduled Acute hypoxemic respiratory failure Healthcare associated pneumonia/Aspiration Pneumonia Right-sided chest tube placed for pleural effusion. continue mechanical ventilation, vent bundle, PSV and T piece trials as tolerated -On T piece >48 hours. Humidified room air Albuterol/ipratropium aerosols every 6 hours with albuterol aerosols every 2 hours prn VQ scan 02/10 low probability [address] PE. CT chest 02/10 - left lower lobe collapse and consolidation. CT chest 02/27 revealed right greater than left pleural effusions. Extubated 02/23. Intubated 02/28. Extubated 03/11, Reintubated on 03/13. 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 Failed attempt to wean successfully due to volume overload and multiple organ failure. underwent perc tracheostomy 03/14. Severe sepsis - resolved. Systolic heart failure likely chronic with ejection fraction 20-25% Hyperlipidemia History of hypertension Mild TR Sinus tachycardia Elevated troponin likely type II demand ischemia Restarted on Levophed on 03/09 following intubation, titrated off after starting hydrocortisone. Started hydrocortisone stress dose on 03/14 (as patient has been on steroids and was just tapered off on 03/09.) Patient has on hypotensive twice when attempting to wean off stress dose hydrocortisone in the past. Currently on atenolol 25 mg twice a day. Continue amlodipine, increased to 10 mg daily. As needed Nitropaste, labetalol and hydralazine for hypertension Atorvastatin 10 mg by mouth daily for dyslipidemia. Troponin 0.[address]-T changes. 2-D echocardiogram 01/11 revealed EF 20-25%. Mild TR. Pulmonary arterial pressures were normal around 20 Troponin 6.55 on 03/02. Likely will need stress test of heart once stable. Cannot anticoagulate due to retroperitoneal hematoma at the present time Currently on furosemide 20 mg IV daily per nephrology Large right retroperitoneal hematoma Erosive esophagitis Adematous/hyperplastic colon polyps Severe acute protein calorie malnutrition Nausea/vomiting - resolved. Diarrhea Gastritis Diverticulosis Internal and external hemorrhoids Hiatal hernia Elevated lipase 02/27 CT chest/abdomen and pelvis - 9.4 x 7.5 renal and 16 x 12 cm right psoas muscle hematoma. Fluid around liver and spleen. Right-sided nephrolithiasis CTA abdomen 02/28 - possible blushing around iliac/lumbar vessels Discussed with IR. s/p attempted embolization CT abdomen and pelvis 02/10 atrophic left kidney. Bilateral inguinal hernias fat- containing. Nonobstructing 12 mm right kidney stone repeat CT abd/pelvis did not show evidence of obstruction. patient clinically has been having diarrhea (c. diff negative 02/19). also with nausea/vomiting of unclear etiology. EGD/Colonoscopy-02/22/17 showed gastritis esophagitis, hiatal hernia, diverticulosis and multiple polyps in descending colon and sigmoid which were snared biopsied. Biopsy pending Dr. Lewis consulted for intervention if needed for elevated IAP. will continue to check as needed Status post PEG tube placement by Previously on tube feeds with Nepro goal Lansoprazole 30 mg twice a day for GI prophylaxis Discontinued metoclopramide 5 mill grams IV every 8 hours today Dietary consult for appropriate tube feeding Acute kidney injury in the setting of Chronic kidney disease stage 3-4 History of uric acid kidney stones with prior stent BPH Nonfunctioning left kidney Acute intravascular volume overload Hypokalemia Sloan placed due to urinary retention and worsening creatinine Maintain Sloan secondary to urinary retention Monitor intake and output q1hr. Monitor electrolytes. RIOS/SPEP negative. 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 Recommended nephrostomy tube if obstruction Nephrology consulted, hemodialysis per nephrology. Making urine. Due to acute illness holding tamsulosin 0.4 mg by mouth daily for BPH ICU electrolyte replacement protocol Potassium repleted Septic shock- resolved. Abscess and Suppurative thrombophlebitis left upper extremity MSSA bacteremia Klebsiella UTI ESBL positive Acute aspiration pneumonia/HCAP Previously treated with Bactrim, ertapenem, intermittent vancomycin, nafcillin Blood cultures 2, UA ESBL positive Klebsiella UTI Sputum 03/14 - Pseudomonas came back resistant to imipenem Repeat blood cultures 2 and sputum 03/08 pending. Urine negative. Switched from meropenem to ceftazidime on 03/19, vancomycin IV 1 dose given on 03/19 and 03/22. ID following-Dr. Edwards. Acute blood loss anemia DVT, bilateral posterior tibial vein, IVC filter Septic thrombophlebitis with occlusive thrombus mid cephalic and basilic vein side Received 10 PRBC, 14 FFP, 2 platelets, 1 cryo-02/28 Received 3 units PRBCs Serial hemoglobins every 6 hours Recheck coags Ultrasound 01/23/17 - Bilateral lower extremity with occlusive posterior tibial vein DVTs. Heparin was initially started for DVT but was placed on hold due to LP with suspected traumatic tap. Currently holding full anticoagulation with enoxaparin 100 mg IV twice a day due to anemia as of 02/26 IVC filter was placed 01/25/17. Ultrasound LUE 02/10 occlusive thrombus mid cephalic vein, basilic vein.s. Transfuse 3 units PRBCs 02/27 Transfuse 2 units PRBCs 03/01. transfused 1 unit PRBCs on 03/14 Diabetes mellitus Hypoglycemia History of prior adrenal insufficiency with shock Gout EGD colonoscopy completed 02/22. gastritis and esophagitis, colon polyps Started Hydrocortisone 100 mg every 8 hours 02/21/17 (Recent high dose steroids use now hypotensive, hypoglycemic), steroids had been tapered off. Resumed stress dose steroids on 03/16 as patient back on Levophed for pressor support after intubation. Continue at 50 mg IV every 6 hours Accu-Cheks to maintain euglycemia Novulin R every 4 hours. Low Regimen Currently on insulin detemir 10 units twice a day for hyperglycemia Right distal ulna fracture. Dr. Nathan with orthopedics has evaluated and recommended nonoperative management. Right wrist splint in place. Hypernatremia S/t NPO status. - free water flushes 300 ml q 6 hours. - follow BMP. Start D5W if no improvement. PROPH: Lansoprazole 30 mg twice a day twice a day for stress ulcer prophylaxis. Has IVC filter. Therapeutic enoxaparin currently on hold for retroperitoneal hematoma Discharge Planning Awaiting placement Problem Qualifiers (1) Hyperlipidemia: Qualified Codes: E78.5 - Hyperlipidemia, unspecified (2) HTN (hypertension): Qualified Codes: I10 - Essential (primary) hypertension (3) Diabetes mellitus with hyperglycemia: Qualified Codes: E11.65 - Type 2 diabetes mellitus with hyperglycemia (4) Diarrhea: Qualified Codes: A09 - Infectious gastroenteritis and colitis, unspecified (5) Abdominal pain: Qualified Codes: R10.84 - Generalized abdominal pain (6) Sepsis: Qualified Codes: A41.9 - Sepsis, unspecified organism Benjamin Christian DO Mar 27, 2017 15:18
[2017-03-27] MEDS ORDERED: POTASSIUM PHOSPHATE INJ 15 MMOL in SODIUM CHLORIDE 0.9% INJ 150 ML IV ONE (17:00)
[2017-03-27 19:25] LABS: BICARBONATE 29.3 MEQ/L (21.0-32.0); POTASSIUM 3.1 MEQ/L (3.5-5.1)
[2017-03-27] MEDS: POTASSIUM CHLORIDE 25 MEQ EFFERVESCENT TAB NG SCH (23:38)
[2017-03-27] MEDS: ATORVASTATIN 10 MG TAB PO SCH (23:39)
[2017-03-28] VITALS (11 sets, daily range): BP systolic 141–178; BP diastolic 64–98; PULSE 75–93; RESP 14–23; TEMP 96.9–98.6; O2SAT 95–99
[2017-03-28] MEDS: INSULIN NovoLIN REGULAR SUPPLEMENTAL SCALE SQ SCH ×4 (02:00→20:00)
[2017-03-28] MEDS: oxyCODONE HCL ORAL CONC 5 MG/0.25 ML SYRINGE PO SCH ×6 (02:00→22:11)
[2017-03-28] MEDS: RESP: ALBUTEROL 2.5 MG/IPRATROPIUM 0.5 MG NEB (SCH) NEB ×4 (05:16→21:19)
[2017-03-28] MEDS: FREE WATER G-TUBE SCH ×4 (05:21→22:10)
[2017-03-28] MEDS: HYDROCORTISONE SOD SUCCINATE 100 MG VIAL IV PUSH SCH ×3 (05:21→17:59)
[2017-03-28] MEDS: NITROGLYCERIN 2% OINT 1 GM PACKET TOPICAL PRN (06:57)
[2017-03-28] MEDS: CHLORHEXIDINE 0.12% (ORAL KIT) 15 ML CUP MT SCH ×2 (08:00→20:00)
[2017-03-28 08:37] LABS: HEMATOCRIT 35.7 % (39.0-51.0); MEAN CELL VOLUME 89.9 FL (80.0-100.0); MEAN CORPUSCULAR HEMOGLOBIN 28.2 PG (27.0-34.0); MEAN CORPUSCULAR HGB CONC 31.4 % (32.0-36.0); PLATELET COUNT 280 TH/MM3 (150-450); RED BLOOD COUNT 3.97 MIL/MM3 (4.50-5.90); RED CELL DISTRIBUTION WIDTH 17.1 % (11.6-17.2); REVIEW FLAG FINAL; WHITE BLOOD COUNT 21.2 TH/MM3 (4.0-11.0)
--- NOTE | 2017-03-28 08:41 | PD.ORT.PN ---
Subjective Subjective Remarks in restraints and trached Objective Vitals Vital Signs Date Time Temp Pulse Resp B/P (MAP) Pulse Ox O2 Delivery O2 Flow Rate FiO2 03/28/17 06:26 98.0 76 20 178/86 (116) 99 03/28/17 06:23 19 03/28/17 04:47 99 T-Piece 5.00 28 03/28/17 02:20 93 03/28/17 00:45 97.5 88 23 178/98 (124) 98 03/28/17 00:19 96.9 89 19 163/84 (110) 98 03/27/17 21:50 98.9 80 20 130/88 (102) 95 03/27/17 21:30 96 T-Piece 5.00 28 03/27/17 20:00 97 T-Piece 5.00 28 Humidified 03/27/17 16:52 97.9 89 20 170/70 (103) 97 03/27/17 12:48 97.9 94 22 185/95 (125) 99 03/27/17 08:56 96 T-piece 5.00 28 I/O 03/27/17 03/27/17 03/27/17 03/28/17 03/28/17 03/28/17 07:00 15:00 23:00 07:00 15:00 23:00 Intake Total 200 ml 400 ml 1546 ml 1860 ml Output Total 1250 ml 2200.0 ml 1750 ml Balance -1050 ml 400 ml -654.0 ml 110 ml Intake Oral 0 ml 800 ml IV Total 200 ml 255 ml 100 ml Tube Feeding 991 ml 660 ml Tube Irrigant 400 ml Other 300 ml 300 ml Output Urine Total 800 ml 2100 ml 1450 ml Stool Total 450 ml 100 ml 300 ml Tube Feeding Residual Discard 0 ml 0 ml # Bowel Movements 0 Result Diagram: 03/27/17 0806 03/27/17 1815 Imaging Last 72 hours Impressions Wrist X-Ray 03/27/17 0000 Signed Impressions: Service Date/Time: Monday, March 27, 2017 13:21 - CONCLUSION: 1. No acute fracture is identified. A portion of the previously documented distal ulna fracture remains visualized. 2. 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 Angelo Allen MD Objective Remarks RUE: minimal pain to palpation of right wrist. He has significant degenerative changes due to gouty arthritis with contractures of wrist and fingers. good cap refillsa nd intact sensation distally Assessment & Plan Assessment and Plan 1) Right Distal Ulna Fx - nonop x-rays look good with appropriate healing. no restrictions to right upper extremity ortho signing off. reconsult if any complications Benjamin Parker Jr. Mar 28, 2017 08:41
[2017-03-28] MEDS: ATENOLOL 25 MG TAB PO SCH ×2 (09:00→22:09)
[2017-03-28] MEDS: SODIUM CHLORIDE 0.9% FLUSH 10 ML FLUSH IV FLUSH SCH ×3 (09:00→22:12)
[2017-03-28] MEDS: FUROSEMIDE 20 MG/2 ML VIAL IV PUSH SCH (09:33)
[2017-03-28] MEDS: LACTOBACILLUS ACIDOPHILUS TAB PO SCH ×3 (09:34→18:00)
[2017-03-28] MEDS: LANSOPRAZOLE SOLUTAB 30 MG TAB NG SCH ×2 (09:34→22:09)
[2017-03-28] MEDS: POTASSIUM CHLORIDE 25 MEQ EFFERVESCENT TAB NG SCH ×2 (09:39→22:09)
[2017-03-28] MEDS: INSULIN DETEMIR 100 UNITS/ML VIAL SQ SCH ×2 (09:41→22:10)
[2017-03-28 11:42] LABS: BICARBONATE 28.4 MEQ/L (21.0-32.0); MAGNESIUM 2.1 MG/DL (1.5-2.5); POTASSIUM 3.4 MEQ/L (3.5-5.1)
--- NOTE | 2017-03-28 11:49 | HHI.PR ---
Subjective Remarks The patient stated that he wanted to be boosted up. He also indicated that he wanted to get out of bed. Discussed with nursing at the bedside. No acute concerns reported. Objective Vitals Vital Signs Date Time Temp Pulse Resp B/P (MAP) Pulse Ox O2 Delivery O2 Flow Rate FiO2 03/28/17 09:36 97 T-piece 28 03/28/17 09:30 97.8 75 14 159/95 (116) 99 03/28/17 06:26 98.0 76 20 178/86 (116) 99 03/28/17 06:23 19 03/28/17 04:47 99 T-Piece 5.00 28 03/28/17 02:20 93 03/28/17 00:45 97.5 88 23 178/98 (124) 98 03/28/17 00:19 96.9 89 19 163/84 (110) 98 03/27/17 21:50 98.9 80 20 130/88 (102) 95 03/27/17 21:30 96 T-Piece 5.00 28 03/27/17 20:00 97 T-Piece 5.00 28 Humidified 03/27/17 16:52 97.9 89 20 170/70 (103) 97 03/27/17 12:48 97.9 94 22 185/95 (125) 99 I/O 03/27/17 03/27/17 03/27/17 03/28/17 03/28/17 03/28/17 07:00 15:00 23:00 07:00 15:00 23:00 Intake Total 200 ml 400 ml 1546 ml 1860 ml Output Total 1250 ml 2200.0 ml 1750 ml Balance -1050 ml 400 ml -654.0 ml 110 ml Intake Oral 0 ml 800 ml IV Total 200 ml 255 ml 100 ml Tube Feeding 991 ml 660 ml Tube Irrigant 400 ml Other 300 ml 300 ml Output Urine Total 800 ml 2100 ml 1450 ml Stool Total 450 ml 100 ml 300 ml Tube Feeding Residual Discard 0 ml 0 ml # Bowel Movements 0 Result Diagram: 03/28/17 0747 03/27/17 1815 Imaging Last Impressions Wrist X-Ray 03/27/17 0000 Signed Impressions: Service Date/Time: Monday, March 27, 2017 13:21 - CONCLUSION: 1. No acute fracture is identified. A portion of the previously documented distal ulna fracture remains visualized. 2. 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 Angelo Allen MD Chest X-Ray 03/14/17 0000 Signed Impressions: Service Date/Time: Tuesday, March 14, 2017 13:41 - CONCLUSION: 1. Tracheostomy in good position. 2. Left lower lung infiltrates and left pleural effusion. Candido Patton MD Aortography 02/28/17 0000 Signed Impressions: Service Date/Time: Tuesday, February 28, 2017 08:01 - CONCLUSION: 1. Active hemorrhage from distal right lateral sacral and iliolumbar branches successfully coil and Gelfoam embolized, as above. Juan Bhakta MD Abdomen/Pelvis CT 02/28/17 0000 Signed Impressions: Service Date/Time: Tuesday, February 28, 2017 06:51 - CONCLUSION: 1. The right retroperitoneal hematoma has increased in size, as above. There are 2 serpiginous arterially enhancing structures visualized, one in the right psoas muscle and another extending into the hematoma at the right iliac fossa. These could represent sites of continued active bleeding. 2. Stable moderate size left and small right pleural effusion with associated compressive atelectasis. 3. Stable small volume of free fluid in the abdomen and pelvis. There is also anasarca. The findings concerning the retroperitoneal hematoma were discussed with Dr. Aguiar via telephone at approximately 7: 10 AM on 02/28/2017. Angelo Allen MD Chest CT 02/27/17 0000 Signed Impressions: Service Date/Time: Monday, February 27, 2017 18:12 - CONCLUSION: 1. Bilateral pleural effusions with bibasilar atelectasis, left greater than right. Tom Sanchez MD Abdomen X-Ray 02/26/17 0000 Signed Impressions: Service Date/Time: Sunday, February 26, 2017 14:52 - CONCLUSION: 1. Nonobstructive bowel gas pattern. Juan Bhakta MD Upper Extremity Ultrasound 02/10/17 0000 Signed Impressions: Service Date/Time: Friday, February 10, 2017 18:46 - CONCLUSION: Occlusive thrombus in the cephalic and basilic veins. Benjamin Person MD Lung Scan- Nuclear Medicine 9/23/17 0000 Signed Impressions: Service Date/Time: Friday, February 10, 2017 22:17 - CONCLUSION: Low probability pulmonary embolism. Candido Patton MD Head CT 02/10/17 Signed Impressions: Service Date/Time: Friday, February 10, 2017 23:51 - CONCLUSION: Negative noncontrast CT brain. Candido Patton MD Lumbar Puncture Fluoroscopy 02/01/17 Signed Impressions: Service Date/Time: January 09:35 - CONCLUSION: Uncomplicated fluoroscopically guided lumbar puncture. CSF was clear. Nabeel Peralta MD Head Magnetic Resonance Angiography 01/27/17 Signed Impressions: Service Date/Time: Friday, January 27, 2017 10:33 - CONCLUSION: No intracranial vascular abnormality is identified. There is no aneurysm visualized. Angelo Allen MD IVC Filter Placement X-Ray 01/25/17 Signed Impressions: Service Date/Time: January 10:29 - CONCLUSION: Uncomplicated inferior vena cava filter placement as above. Yung Fowler MD Thoracic Spine MRI 01/24/17 Signed Impressions: Service Date/Time: Tuesday, January 24, 2017 22:29 - CONCLUSION: 1. Mild degenerative spondylosis most prominently at T11-L1 with slight effacement of the anterior thecal sac and left lateral recess. No significant neural foraminal stenosis. 2. No acute fracture. Juan Bhakta MD Renal Ultrasound 01/23/17 Signed Impressions: Service Date/Time: Monday, January 23, 2017 08:53 - CONCLUSION: 1. Evidence of chronic parenchymal disease of both kidneys. No obstructive uropathy or other acute abnormality demonstrated. 2. Trace ascites, nonspecific. Angelo Garrido MD Lumbar Spine MRI 01/23/17 Signed Impressions: Service Date/Time: Monday, January 23, 2017 17:01 - CONCLUSION: 1. At L4-5 is a broad-based disc protrusion with severe central canal and lateral recess stenosis and flattening of the exiting right L4 nerve root. 2. L5-S1 there is a disc protrusion and moderate stenosis with flattening of the exiting L5 nerve roots bilaterally. 3. At L3-4 there is a moderate to severe central stenosis and lateral recess stenosis with mild foraminal stenosis. 4. No acute fracture or spondylolisthesis. Trace Holloway MD Lower Extremity Ultrasound 01/23/17 Signed Impressions: Service Date/Time: Monday, January 23, 2017 09:53 - CONCLUSION: Bilateral focal lower extremity DVT involving the posterior tibial veins. Angelo Garrido MD Cervical Spine MRI 01/23/17 Signed Impressions: Service Date/Time: Monday, January 23, 2017 17:01 - CONCLUSION: 1. Multilevel cervical spine degenerative changes as above. 2. Mild degrees of spinal stenosis at C3/C4-C6/C7. No cord compression or cord signal abnormality. 3. Age indeterminate left paracentral/foraminal disc protrusion at C6/C7. 4. Multilevel foraminal stenosis, most severe on the left at C6/C7. Please see individual levels above. 5. No fracture or subluxation of the cervical spine. Angelo Garrido MD Brain MRI 01/23/17 Signed Impressions: Service Date/Time: Monday, January 23, 2017 17:01 - CONCLUSION: 1. No acute stroke or other acute intracranial abnormality demonstrated. 2. Moderate severity chronic white matter changes, nonspecific but most likely related to chronic small vessel disease. 3. Few scattered tiny lacunar infarcts of the brainstem. 4. Given the findings are not entirely specific, clinical evaluation for possible multiple sclerosis recommended. Angelo Garrido MD Knee X-Ray [id number]/22/[id number] Signed Impressions: Service Date/Time: Sunday, January 22, 2017 21:17 - CONCLUSION: 1. Evidence of moderate to large joint effusion. 2. No acute fracture or malalignment. 3. Mild 3 compartment osteoarthritic change. Benjamin Person MD Hip and Pelvis X-Ray [id number]/22/[id number] Signed Impressions: Service Date/Time: Sunday, January 22, 2017 21:10 - CONCLUSION: 1. Mild to moderate degenerative change of both hips with no acute fracture or malalignment. There is flattening and remodeling of the right humeral head. Benjamin Person MD Objective Remarks GENERAL: Resting in bed, in no apparent distress. HEENT: Normocephalic. Atraumatic. Pupils equal, round, reactive. NECK: Tracheostomy in place. CHEST: on T piece via tracheostomy, air entry decreased bilaterally at bases. CARDIOVASCULAR: S1-S2 regular, no gallop or murmur. ABDOMEN distended. No rigidity. Umbilical hernia is reducible. No guarding. PEG tube in place. : Positive scrotal edema Sloan in place. MUSCULOSKELETAL: Pulses 2+. 1+ bilateral upper and lower extremity edema. Clean white Bandage/discontinued wound VAC on left upper extremity. NEUROLOGICAL: Awake and alert, has spontaneous eye opening. Opens and closes eyes on command, on T piece via tracheostomy. Moves 4 limbs weakly to stimulation. PSYCH: Slightly anxious. Procedures IVC filter placement 01/25/2017 LP 01/26/2017 Medications and IVs Current Medications Medications (Trade) Dose Ordered Sig/Rosalia Route Start Time Stop Time Status Last Admin (NS Flush) 2 ml UNSCH PRN IV FLUSH 01/23/17 00:30 02/01/17 05:07 (NS Flush) 2 ml BID IV FLUSH 01/23/17 09:00 03/28/17 09:00 (Zofran Inj) 4 mg Q6H PRN IVP 01/23/17 00:30 02/26/17 17:23 (Narcan Inj) 0.4 mg UNSCH PRN IV 01/23/17 00:30 (Edna-Colace) 1 tab BID PO 01/23/17 09:00 Future Hold 02/24/17 20:31 (Dulcolax Supp) 10 mg DAILY PRN RECTAL 01/23/17 00:30 (Lipitor) 10 mg HS PO 01/24/17 21:00 Future hold 03/27/17 23:39 (Glucagon Inj) 1 mg UNSCH PRN OTHER 02/11/17 05:45 02/18/17 18:53 (Flomax) 0.4 mg Q12HR PO 02/17/17 15:00 Future Hold 02/26/17 08:49 (Lovenox Inj) 100 mg Q12H SQ 02/18/17 12:00 Future Hold 02/26/17 16:20 (Lactinex) 1 tab TID PO 02/19/17 13:00 03/28/17 09:34 (Apresoline Inj) 10 mg Q30M PRN IV PUSH 02/20/17 11:45 03/26/17 12:18 (D50w (Vial) Inj) 25 ml UNSCH PRN IV PUSH 02/20/17 12:45 03/27/17 13:20 (Questran Light Pkt) 4 gm Q12HR PO 02/25/17 21:00 Future Hold 02/27/17 10:32 (Aldactone) 25 mg DAILY PO 02/27/17 09:00 Future Hold (Peridex 0.12% Liq) 15 ml BID@08,20 MT 02/28/17 08:00 03/27/17 08:00 (Albuterol Neb) 2.5 mg Q2HR NEB PRN NEB 02/28/17 07:45 03/21/17 19:21 (NS Flush) UNSCH PRN IV FLUSH 03/01/17 13:00 (Heparin Inj) UNSCH PRN IV FLUSH 03/01/17 13:00 (NS Flush) DAILY IV FLUSH 03/04/17 09:00 03/26/17 09:00 (NS Flush) UNSCH PRN IV FLUSH 03/03/17 18:45 (Roxicodone Intensol Liq) 10 mg Q4H PO 03/05/17 14:00 03/28/17 09:36 (Prevacid Odt) 30 mg BID NG 03/07/17 21:00 03/28/17 09:34 (Tylenol 650 Mg/ 20 ml Liq) 650 mg Q6H PRN PO 03/09/17 10:15 03/14/17 05:24 (Trandate Inj) 20 mg Q4H PRN IV 03/12/17 04:30 03/17/17 12:25 (Tenormin) 25 mg Q12HR PO 03/12/17 10:00 03/28/17 09:00 (SoluCORTEF INJ) 50 mg Q6HR IV PUSH 03/14/17 18:00 03/28/17 05:21 (Epogen Inj) 10,000 units UNSCH PRN IV PUSH 03/17/17 11:30 03/22/17 10:52 (Nitroglycerin 2% Oint) 2 inch Q6H PRN TOPICAL 03/23/17 14:00 03/28/17 06:57 (NovoLIN R SUPPLEMENTAL SCALE) 1 Q6H SQ 03/26/17 14:00 (Lasix Inj) 20 mg DAILY IV PUSH 03/27/17 09:00 03/28/17 09:33 (Free Water) 300 ml Q6HR G-TUBE 03/27/17 11:00 03/28/17 05:21 (Duoneb Neb) 1 ampule Q6HR NEB NEB 03/27/17 16:00 03/28/17 09:35 (K-Lyte Cl Eff) 25 meq Q12HR NG 03/27/17 21:00 03/28/17 09:39 (Levemir Inj) 10 units BID SQ 03/27/17 21:00 03/28/17 09:41 (Norvasc) 10 mg DAILY PO 03/28/17 09:00 03/28/17 09:37 Potassium Chloride 100 ml @ 50 mls/hr Q2H IV 03/28/17 11:00 03/28/17 14:59 Date of Insertion: Mar 03, 2017 Line: Central Venous Catheter Side: Right Location: Internal, Jugular A/P Problem List: (1) Transverse myelitis ICD Code: G37.3 - Acute transverse myelitis in demyelinating disease of central nervous system Status: Acute (2) Septic shock ICD Code: A41.9 - Sepsis, unspecified organism; R65.21 - Severe sepsis with septic shock Status: Resolved (3) HCAP (healthcare-associated pneumonia) ICD Code: J18.9 - Pneumonia, unspecified organism (4) Acute respiratory failure with hypoxia and hypercarbia ICD Code: J96.01 - Acute respiratory failure with hypoxia; J96.02 - Acute respiratory failure with hypercapnia Status: Resolved (5) Hyperlipidemia ICD Code: E78.5 - Hyperlipidemia, unspecified Status: Chronic (6) HTN (hypertension) ICD Code: I10 - Essential (primary) hypertension (7) DVT of lower extremity, bilateral ICD Code: I82.403 - Acute embolism and thrombosis of unspecified deep veins of lower extremity, bilateral (8) Diabetes mellitus with hyperglycemia ICD Code: E11.65 - Type 2 diabetes mellitus with hyperglycemia (9) Hypocalcemia ICD Code: E83.51 - Hypocalcemia (10) Hypernatremia ICD Code: E87.0 - Hyperosmolality and hypernatremia (11) Hypokalemia ICD Code: E87.6 - Hypokalemia (12) Acute metabolic encephalopathy ICD Code: G93.41 - Metabolic encephalopathy (13) Quadriparesis ICD Code: G82.50 - Quadriplegia, unspecified Status: Acute (14) BREEZY (acute kidney injury) ICD Code: N17.9 - Acute kidney failure, unspecified (15) Diarrhea ICD Code: R19.7 - Diarrhea, unspecified (16) Abdominal pain ICD Code: R10.9 - Unspecified abdominal pain (17) Hypoglycemia ICD Code: E16.2 - Hypoglycemia, unspecified (18) Urinary retention ICD Code: R33.9 - Retention of urine, unspecified (19) Acute hypoxemic respiratory failure ICD Code: J96.01 - Acute respiratory failure with hypoxia (20) Sepsis ICD Code: A41.9 - Sepsis, unspecified organism Assessment and Plan Acute metabolic encephalopathy- persistent Quadriparesis secondary to suspected transverse myelitis Recurrent falls Pain secondary to retroperitoneal hematoma. Suspected transverse myelitis. Received methylprednisolone 250 mg IV every 6 hours 01/27-02/02, started back on hydrocortisone 02/21/17, initially tapering to 50 mg IV every 8 hours starting received 1 dose at 2100 prior to becoming hypotensive. weaning hydrocortisone taper and stopped 03/09. Resumed hydrocortisone 50mg IV Q6hrly on 03/14 as patient became hypotensive following intubation on 03/13 requiring levophed. Continue 50 mg IV every 6 hours LP 01/26 and 02/01. CSF culture negative 01/26, 02/01 Oligoclonal bands negative. CSF/serum IgG index is not elevated. VDRL nonreactive. Cryptococcal antigen negative. Brain MRI 01/23 no acute stroke. Few scattered lacunar infarcts of the brainstem. Moderate chronic white matter changes. MRI cervical/thoracic spine- mild spinal stenosis C3/C4 to C6/C7. No cord compression. RPR negative Neurology has been following, Dr. Crenshaw. Repeat CT brain 02/10 - negative Continue PT/OT Continue oxycodone 10 mg every 4 hours scheduled Acute hypoxemic respiratory failure Healthcare associated pneumonia/Aspiration Pneumonia Right-sided chest tube placed for pleural effusion. continue mechanical ventilation, vent bundle, PSV and T piece trials as tolerated -On T piece >48 hours. Humidified room air Albuterol/ipratropium aerosols every 6 hours with albuterol aerosols every 2 hours prn VQ scan 02/10 low probability for PE. CT chest 02/10 - left lower lobe collapse and consolidation. CT chest 10/10 revealed right greater than left pleural effusions. Extubated 02/23. Intubated 02/28. Extubated 03/11, Reintubated on 03/13. 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 Failed attempt to wean successfully due to volume overload and multiple organ failure. underwent perc tracheostomy 03/14. Severe sepsis - resolved. Systolic heart failure likely chronic with ejection fraction 20-25% Hyperlipidemia History of hypertension Mild TR Sinus tachycardia Elevated troponin likely type II demand ischemia Restarted on Levophed on 03/09 following intubation, titrated off after starting hydrocortisone. Started hydrocortisone stress dose on 03/14 (as patient has been on steroids and was just tapered off on 03/09.) Patient has on hypotensive twice when attempting to wean off stress dose hydrocortisone in the past. Currently on atenolol 25 mg twice a day. Continue amlodipine, increased to 10 mg daily. As needed Nitropaste, labetalol and hydralazine for hypertension Atorvastatin 10 mg by mouth daily for dyslipidemia. Troponin 0.[address]-T changes. 2-D echocardiogram 01/11 revealed EF 20-25%. Mild TR. Pulmonary arterial pressures were normal around 20 Troponin 6.55 on 03/02. Likely will need stress test of heart once stable. Cannot anticoagulate due to retroperitoneal hematoma at the present time Currently on furosemide 20 mg IV daily per nephrology Large right retroperitoneal hematoma Erosive esophagitis Adematous/hyperplastic colon polyps Severe acute protein calorie malnutrition Nausea/vomiting - resolved. Diarrhea Gastritis Diverticulosis Internal and external hemorrhoids Hiatal hernia Elevated lipase 02/27 CT chest/abdomen and pelvis - 9.4 x 7.5 renal and 16 x 12 cm right psoas muscle hematoma. Fluid around liver and spleen. Right-sided nephrolithiasis CTA abdomen 02/28 - possible blushing around iliac/lumbar vessels Discussed with IR. s/p attempted embolization CT abdomen and pelvis 02/10 atrophic left kidney. Bilateral inguinal hernias fat- containing. Nonobstructing 12 mm right kidney stone repeat CT abd/pelvis did not show evidence of obstruction. patient clinically has been having diarrhea (c. diff negative 02/19). also with nausea/vomiting of unclear etiology. EGD/Colonoscopy-02/22/17 showed gastritis esophagitis, hiatal hernia, diverticulosis and multiple polyps in descending colon and sigmoid which were snared biopsied. Biopsy pending Dr. Lewis consulted for intervention if needed for elevated IAP. will continue to check as needed Status post PEG tube placement by Previously on tube feeds with Nepro goal Lansoprazole 30 mg twice a day for GI prophylaxis Discontinued metoclopramide 5 mill grams IV every 8 hours today Dietary consult for appropriate tube feeding Acute kidney injury in the setting of Chronic kidney disease stage 3-4 History of uric acid kidney stones with prior stent BPH Nonfunctioning left kidney Acute intravascular volume overload Hypokalemia Sloan placed due to urinary retention and worsening creatinine Maintain Sloan secondary to urinary retention Monitor intake and output q1hr. Monitor electrolytes. RIOS/SPEP negative. 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 Recommended nephrostomy tube if obstruction Nephrology consulted, hemodialysis per nephrology. Making urine. Due to acute illness holding tamsulosin 0.4 mg by mouth daily for BPH Potassium repleted. Still with severe hypokalemia. Monitor closely. Septic shock- resolved. Abscess and Suppurative thrombophlebitis left upper extremity MSSA bacteremia Klebsiella UTI ESBL positive Acute aspiration pneumonia/HCAP Previously treated with Bactrim, ertapenem, intermittent vancomycin, nafcillin Blood cultures 2, UA ESBL positive Klebsiella UTI Sputum 03/14 - Pseudomonas came back resistant to imipenem Repeat blood cultures 2 and sputum 03/08 pending. Urine negative. Switched from meropenem to ceftazidime on 03/19, vancomycin IV 1 dose given on 03/19 and 03/22. Follow up with ID. Acute blood loss anemia DVT, bilateral posterior tibial vein, IVC filter Septic thrombophlebitis with occlusive thrombus mid cephalic and basilic vein side Received 10 PRBC, 14 FFP, 2 platelets, 1 cryo-02/28 Received 3 units PRBCs Serial hemoglobins every 6 hours Recheck coags Ultrasound 01/23/17 - Bilateral lower extremity with occlusive posterior tibial vein DVTs. Heparin was initially started for DVT but was placed on hold due to LP with suspected traumatic tap. Currently holding full anticoagulation with enoxaparin 100 mg IV twice a day due to anemia as of 02/26 IVC filter was placed 01/25/17. Ultrasound LUE 02/10 occlusive thrombus mid cephalic vein, basilic vein.s. Transfuse 3 units PRBCs 02/27 Transfuse 2 units PRBCs 03/01. transfused 1 unit PRBCs on 03/14 Diabetes mellitus Hypoglycemia History of prior adrenal insufficiency with shock Gout EGD colonoscopy completed 02/22. Gastritis and esophagitis, colon polyps. Started Hydrocortisone 100 mg every 8 hours 02/21/17 (Recent high dose steroids use now hypotensive, hypoglycemic), steroids had been tapered off. Resumed stress dose steroids on 03/16 as patient back on Levophed for pressor support after intubation. - wean hydrocortisone to 25 mg IV every 6 hours. - Accu-Cheks to maintain euglycemia Novulin R every 4 hours. Low Regimen. Currently on insulin detemir 10 units twice a day. Right distal ulna fracture. Dr. Nathan with orthopedics has evaluated and recommended nonoperative management. - Right wrist splint in place. Hypernatremia S/t NPO status. - free water flushes 300 ml q 6 hours. - follow BMP. Start D5W if no improvement. Slight improvement noted. Monitor. PROPH: Lansoprazole 30 mg twice a day twice a day for stress ulcer prophylaxis. Has IVC filter. Therapeutic enoxaparin currently on hold for retroperitoneal hematoma Discharge Planning Awaiting placement Problem Qualifiers (1) Hyperlipidemia: Qualified Codes: E78.5 - Hyperlipidemia, unspecified (2) HTN (hypertension): Qualified Codes: I10 - Essential (primary) hypertension (3) Diabetes mellitus with hyperglycemia: Qualified Codes: E11.65 - Type 2 diabetes mellitus with hyperglycemia (4) Diarrhea: Qualified Codes: A09 - Infectious gastroenteritis and colitis, unspecified (5) Abdominal pain: Qualified Codes: R10.84 - Generalized abdominal pain (6) Sepsis: Qualified Codes: A41.9 - Sepsis, unspecified organism Benjamin Christian DO Mar 28, 2017 11:49
[2017-03-28] MEDS: POTASSIUM CHLOR 20 MEQ PREMIX 100 ML IV SCH ×3 (12:00→15:30)
[2017-03-28 13:43] LABS: BICARBONATE 31.2 MEQ/L (21.0-32.0); POTASSIUM 3.8 MEQ/L (3.5-5.1)
--- NOTE | 2017-03-28 13:47 | HHI.IDPN ---
Subjective Subjective Remarks Patient is a 62-year-old male, admitted to the hospital for evaluation of pain in his right wrist. He gave a history of falling about a week ago and apparently had immediate pain in the right wrist. He did not seek any medical attention initially because reportedly he was very busy. He eventually presented, and he was found to have a distal ulnar fracture on plain films. He also had some redness and swelling. Orthopedics saw the patient, and was being treated conservatively with the splint. During this hospitalization also he started complaining of generalized weakness but more so in his lower extremity than his upper extremity. He had swelling in both lower extremity which revealed evidence of DVT in the posterior tibial veins. Neurology had seen the patient and he underwent lumbar puncture which apparently was traumatic. Patient was therefore not given anticoagulation because of the traumatic LP, and he underwent placement of an IVC filter on January 25. Patient had another lumbar puncture on February 01. He was felt to have transverse myelitis, and he was given high-dose IV Solu-Medrol from January 27 to February 02. There was apparently some improvement in his weakness. The imaging studies done for his weakness showed some spinal stenosis, and neurosurgery was consult that and recommended that there was no surgical intervention to be done. Patient has been stabilizing, but last night apparently deteriorated, and he ended up getting intubated, and had significant hypotension requiring pressors. There was also an ultrasound done of his left upper extremity which showed DVT, and there was evidence of superior 2 thrombophlebitis. Vascular surgery was consult to it and he had IND on his left upper extremity. Patient has had some fevers since yesterday. 2 blood cultures were done yesterday and they're now reported as growing gram-positive cocci in [place] in clusters. He is currently sedated and intubated. He is on Levophed and vasopressin. A central line was placed as well as a femoral a line. He apparently had an IV in his left upper extremity and that was removed yesterday. Patient also has history of chronic kidney disease, and nephrology evaluated the patient. He was just being monitored for his renal insufficiency. Infectious disease consultation has been requested to evaluate the patient. Notes reviewed Temps ok BP good On T-piece Awake and following commands Has good UO Creatinine improving S/P trach S/P PEG Completed Abx yesterday Antibiotics Fortaz IV - finished 03/27 Past Medical History Reviewed Allergies: Coded Allergies: levofloxacin (Verified Allergy, Severe, 01/22/17) Objective . Vital Signs Date Time Temp Pulse Resp B/P (MAP) Pulse Ox O2 Delivery O2 Flow Rate FiO2 03/28/17 09:36 97 T-piece 28 03/28/17 09:30 97.8 75 14 159/95 (116) 99 03/28/17 06:26 98.0 76 20 178/86 (116) 99 03/28/17 06:23 19 03/28/17 04:47 99 T-Piece 5.00 28 03/28/17 02:20 93 03/28/17 00:45 97.5 88 23 178/98 (124) 98 03/28/17 00:19 96.9 89 19 163/84 (110) 98 03/27/17 21:50 98.9 80 20 130/88 (102) 95 03/27/17 21:30 96 T-Piece 5.00 28 03/27/17 20:00 97 T-Piece 5.00 28 Humidified 03/27/17 16:52 97.9 89 20 170/70 (103) 97 . Laboratory Tests Test 03/27/17 08:06 03/28/17 07:47 White Blood Count 21.6 TH/MM3 21.2 TH/MM3 Red Blood Count 3.47 MIL/MM3 3.97 MIL/MM3 Hemoglobin 9.9 GM/DL 11.2 GM/DL Hematocrit 31.5 % 35.7 % Mean Corpuscular Volume 90.7 FL 89.9 FL Mean Corpuscular Hemoglobin 28.6 PG 28.2 PG Mean Corpuscular Hemoglobin Concent 31.5 % 31.4 % Red Cell Distribution Width 16.8 % 17.1 % Platelet Count 335 TH/MM3 280 TH/MM3 Mean Platelet Volume 9.0 FL 9.1 FL Hematology Comments Laboratory Tests Test 03/27/17 08:06 03/27/17 18:15 03/28/17 07:47 03/28/17 13:08 Blood Urea Nitrogen 63 MG/DL 62 MG/DL 59 MG/DL 60 MG/DL Creatinine 1.05 MG/DL 0.93 MG/DL 0.97 MG/DL 0.93 MG/DL Random Glucose 115 MG/DL 87 MG/DL 121 MG/DL 198 MG/DL Calcium Level 8.1 MG/DL 8.0 MG/DL 7.9 MG/DL 7.8 MG/DL Sodium Level 153 MEQ/L 151 MEQ/L 154 MEQ/L 154 MEQ/L Potassium Level 2.7 MEQ/L 3.1 MEQ/L 3.4 MEQ/L 3.8 MEQ/L Chloride Level 113 MEQ/L 113 MEQ/L 115 MEQ/L 114 MEQ/L Carbon Dioxide Level 31.5 MEQ/L 29.3 MEQ/L 28.4 MEQ/L 31.2 MEQ/L Anion Gap 9 MEQ/L 9 MEQ/L 11 MEQ/L 9 MEQ/L Estimat Glomerular Filtration Rate 72 ML/MIN 82 ML/MIN 78 ML/MIN 82 ML/MIN Phosphorus Level 2.3 MG/DL Magnesium Level 2.1 MG/DL 2.1 MG/DL Imaging Chest X-Ray 03/14/17 0000 Signed Impressions: Service Date/Time: Tuesday, March 14, 2017 13:41 - CONCLUSION: 1. Tracheostomy in good position. 2. Left lower lung infiltrates and left pleural effusion. Candido Patton MD Aortography 02/28/17 0000 Signed Impressions: Service Date/Time: Tuesday, February 28, 2017 08:01 - CONCLUSION: 1. Active hemorrhage from distal right lateral sacral and iliolumbar branches successfully coil and Gelfoam embolized, as above. Juan Bhakta MD Abdomen/Pelvis CT 02/28/17 0000 Signed Impressions: Service Date/Time: Tuesday, February 28, 2017 06:51 - CONCLUSION: 1. The right retroperitoneal hematoma has increased in size, as above. There are 2 serpiginous arterially enhancing structures visualized, one in the right psoas muscle and another extending into the hematoma at the right iliac fossa. These could represent sites of continued active bleeding. 2. Stable moderate size left and small right pleural effusion with associated compressive atelectasis. 3. Stable small volume of free fluid in the abdomen and pelvis. There is also anasarca. The findings concerning the retroperitoneal hematoma were discussed with Dr. Aguiar via telephone at approximately 7: 10 AM on 02/28/2017. Angelo Allen MD Chest CT 02/27/17 0000 Signed Impressions: Service Date/Time: Monday, February 27, 2017 18:12 - CONCLUSION: 1. Bilateral pleural effusions with bibasilar atelectasis, left greater than right. Tom Sanchez MD Abdomen X-Ray 02/26/17 0000 Signed Impressions: Service Date/Time: Sunday, February 26, 2017 14:52 - CONCLUSION: 1. Nonobstructive bowel gas pattern. Juan Bhakta MD Upper Extremity Ultrasound 02/10/17 0000 Signed Impressions: Service Date/Time: Friday, February 10, 2017 18:46 - CONCLUSION: Occlusive thrombus in the cephalic and basilic veins. Benjamin Person MD Lung Scan-V Nuclear Medicine 02/10/17 0000 Signed Impressions: Service Date/Time: Friday, February 10, 2017 22:17 - CONCLUSION: Low probability pulmonary embolism. Candido Patton MD Head CT 02/10/17 0000 Signed Impressions: Service Date/Time: Friday, February 10, 2017 23:51 - CONCLUSION: Negative noncontrast CT brain. Candido Patton MD Wrist X-Ray 02/06/17 0000 Signed Impressions: Service Date/Time: Monday, February 06, 2017 12:50 - CONCLUSION: Minimally displaced distal radius and ulnar fractures. Armando Dodd MD Lumbar Puncture Fluoroscopy 02/01/17 0000 Signed Impressions: Service Date/Time: January 09:35 - CONCLUSION: Uncomplicated fluoroscopically guided lumbar puncture. CSF was clear. Nabeel Peralta MD Head Magnetic Resonance Angiography 01/27/17 0000 Signed Impressions: Service Date/Time: Friday, January 27, 2017 10:33 - CONCLUSION: No intracranial vascular abnormality is identified. There is no aneurysm visualized. Angelo Allen MD IVC Filter Placement X-Ray 01/25/17 0000 Signed Impressions: Service Date/Time: January 10:29 - CONCLUSION: Uncomplicated inferior vena cava filter placement as above. Yung Fowler MD Thoracic Spine MRI 01/24/17 0000 Signed Impressions: Service Date/Time: Tuesday, January 24, 2017 22:29 - CONCLUSION: 1. Mild degenerative spondylosis most prominently at T11-L1 with slight effacement of the anterior thecal sac and left lateral recess. No significant neural foraminal stenosis. 2. No acute fracture. Juan Bhakta MD Renal Ultrasound 01/23/17 Signed Impressions: Service Date/Time: Monday, January 23, 2017 08:53 - CONCLUSION: 1. Evidence of chronic parenchymal disease of both kidneys. No obstructive uropathy or other acute abnormality demonstrated. 2. Trace ascites, nonspecific. Angelo Garrido MD Lumbar Spine MRI 01/23/17 Signed Impressions: Service Date/Time: Monday, January 23, 2017 17:01 - CONCLUSION: 1. At L4-5 is a broad-based disc protrusion with severe central canal and lateral recess stenosis and flattening of the exiting right L4 nerve root. 2. L5-S1 there is a disc protrusion and moderate stenosis with flattening of the exiting L5 nerve roots bilaterally. 3. At L3-4 there is a moderate to severe central stenosis and lateral recess stenosis with mild foraminal stenosis. 4. No acute fracture or spondylolisthesis. Trace Holloway MD Lower Extremity Ultrasound 01/23/17 Signed Impressions: Service Date/Time: Monday, January 23, 2017 09:53 - CONCLUSION: Bilateral focal lower extremity DVT involving the posterior tibial veins. Angelo Garrido MD Cervical Spine MRI 01/23/17 Signed Impressions: Service Date/Time: Monday, January 23, 2017 17:01 - CONCLUSION: 1. Multilevel cervical spine degenerative changes as above. 2. Mild degrees of spinal stenosis at C3/C4-C6/C7. No cord compression or cord signal abnormality. 3. Age indeterminate left paracentral/foraminal disc protrusion at C6/C7. 4. Multilevel foraminal stenosis, most severe on the left at C6/C7. Please see individual levels above. 5. No fracture or subluxation of the cervical spine. Angelo Garrido MD Brain MRI 01/23/17 Signed Impressions: Service Date/Time: Monday, January 23, 2017 17:01 - CONCLUSION: 1. No acute stroke or other acute intracranial abnormality demonstrated. 2. Moderate severity chronic white matter changes, nonspecific but most likely related to chronic small vessel disease. 3. Few scattered tiny lacunar infarcts of the brainstem. 4. Given the findings are not entirely specific, clinical evaluation for possible multiple sclerosis recommended. Angelo Garrido MD Knee X-Ray 01/22/[id number] Signed Impressions: Service Date/Time: Sunday, January 22, 2017 21:17 - CONCLUSION: 1. Evidence of moderate to large joint effusion. 2. No acute fracture or malalignment. 3. Mild 3 compartment osteoarthritic change. Benjamin Person MD Hip and Pelvis X-Ray [id number]/22/[id number] Signed Impressions: Service Date/Time: Sunday, January 22, 2017 21:10 - CONCLUSION: 1. Mild to moderate degenerative change of both hips with no acute fracture or malalignment. There is flattening and remodeling of the right humeral head. Benjamin Person MD Physical Exam GENERAL: Awake and following commands, NAD, on T-piece SKIN: Cool and dry. No generalized rash. Still edematous EYES: [place] conjunctiva. No petechia or hemorrhage. EARS, NOSE AND THROAT: Nose without bleeding or purulent nasal discharge. Dry oral mucosa NECK: Trachea midline. Supple and no meningeal signs. Trach site ok CARDIOVASCULAR: Regular rate and rhythm. Soft heart sounds. No murmurs RESPIRATORY: Coarse BS bilaterally, decreased at bases. ABDOMEN: Soft, mildly distended, PEG site ok. Mild tenderness, no guarding EXTREMITIES: No clubbing, cyanosis. Edema feet better; edema hands better : very swollen scrotum, has a lot of sediment in his cath tubing NEUROLOGICAL: awake and following commands PSYCHIATRIC: Calm and cooperative LINE: Lines with no evidence of infection Assessment & Plan Remarks IMPRESSION Fevers - resolved - had Kleb and Sten mal in sputum, S/P Rx - now with Pseudomonas S/P Rx 03/27 - PSAE R to Imipenem Leukocytosis HCAP, Pseudomonas now, just completed Rx 03/27 - previously Kleb and Sten mal, S/P Rx with Bactrim Shock, resolved Large R retroperitoneal bleed, S/P multiple transfusions and S/P coiling of bleeders Elevated amylase and lipase, better Anemia, due to bleed, retroperitoneal MSSA sepsis, due to suppurative thrombophlebitis LUE, S/P I and D and excision of portion of cephalic vein - S/P Rx Respiratory failure, has had several intubations - reintubated again 02/28, extubated 03/11 - reintubated again - S/P trach 03/14 Recent Rx 7 days high dose solumedrol for transverse myelitis Wu LE DVT has IVC filter placed 01/25 - ?hypercoagulable state Chronic kidney disease, worsening creatinine - shock and compression of ureter by hematoma Known DM, HTN Gouty tophi both hands and feet Diarrhea, C diff negative UTI, GNR - repeat UA better, but a lot of sediment in the urine Thrombocytopenia, no evidence of DIC, ?meds, ?infection, ?due to bleed - improving RECOMMENDATION S/P Rx for MSSA sepsis Monitor off Abx Monitor for S/Sxs of new infection Follow CBC Monitor progress Irene Edwards MD Mar 28, 2017 13:47
[2017-03-28] MEDS ORDERED: POTASSIUM CHLOR 20 MEQ PREMIX 100 ML IV SCH (15:30)
--- NOTE | 2017-03-28 15:50 | HHI.HCPN ---
Reason for visit a. To assist with evaluation and management of symptoms including: shortness of breath, pain, debility b. To assist medical decision maker(s) with: better understanding of current medical conditions; weighing benefits/burdens of medical treatment options; making medical treatment decisions. Subjective/Interval History Mr Kerr is a 62 years old male with a past medical history of hypertension, asthma, diabetes, hyperlipidemia, chronic kidney disease and gout. Patient presented to the ED on 01/22/17 complaining of bilateral knee and right arm pain after a mechanical fall 4 or 5 days prior to coming to the ER. Patient has been experiencing progressive weakness of bilateral lower extremities as well as bilateral upper extremities prior to ER visit. Patient seen in room 1534, awake, alert and following commands with all 4 extremities. Patient mouthing some words and talking around the tracheostomy. Patient is tearful. Patient "begging to have soft restraints removed and asking for food". Explained to patient why restraints were being used and reinforced importance of not pulling off trach, detaching PEG tube and PIVs. Patient remains afebrile. SBP 150s-170s. Patient has nitroglycerin to chest wall. Laboratory workup today revealing WBC 21.2, Hgb 11.2, Hct 35.7, Plt Count 280, sodium 154, potassium 3.8, BUN/Creatinine 60/0.93. Case discussed with bedside RN Kylie Deras and Dr. Christian. Recommended reconsulting pulmonary for trach management and possible tracheostomy weaning as well as consulting speech therapy. . Advance Directives Living Will: Never completed Health Care Surrogate: Never completed Durable Power of Home Therapy Clinician: Never completed Advance Directive Specifics Documented care wishes: No known documented care wishes have been completed. . Objective Vital Signs Date Time Temp Pulse Resp B/P (MAP) Pulse Ox O2 Delivery O2 Flow Rate FiO2 03/28/17 14:04 98.5 79 18 169/78 (108) 99 03/28/17 09:36 97 T-piece 28 03/28/17 09:30 97.8 75 14 159/95 (116) 99 03/28/17 08:00 85 03/28/17 06:26 98.0 76 20 178/86 (116) 99 03/28/17 06:23 19 03/28/17 04:47 99 T-Piece 5.00 28 03/28/17 02:20 93 03/28/17 00:45 97.5 88 23 178/98 (124) 98 03/28/17 00:19 96.9 89 19 163/84 (110) 98 03/27/17 21:50 98.9 80 20 130/88 (102) 95 03/27/17 21:30 96 T-Piece 5.00 28 03/27/17 20:00 97 T-Piece 5.00 28 Humidified 03/27/17 16:52 97.9 89 20 170/70 (103) 97 Intake & Output 03/28/17 03/28/17 07:00 19:00 Intake Total 2615 ml 0 ml Output Total 2450.0 ml Balance 165.0 ml 0 ml Intake Oral 800 ml IV Total 255 ml 0 ml Tube Feeding 960 ml Other 600 ml Output Urine Total 2050 ml Stool Total 400 ml Tube Feeding Residual Discard 0 ml # Bowel Movements 0 Physical Exam CONSTITUTIONAL/GENERAL: This is an adequately nourished patient, trached on T piece, 28% TUBES/LINES/DRAINS: PEG tube, Tracheostomy, PIVs, FC SKIN: No jaundice. Ecchymoses on upper extremities. Sacral pressure wound and L heel pressure injury. Afebrile. Not diaphoretic. HEAD: Atraumatic. Normocephalic. EYES: Pupils equal and round, slight reaction.No scleral icterus. No injection or drainage. Fundi not examined. ENT: Trached with no sedation. Nose without bleeding or purulent drainage. Moist oral mucosa. NECK: Trachea midline. Supple, nontender. CARDIOVASCULAR: Regular rate and rhythm without murmurs, gallops, or rubs. No JVD. RESPIRATORY/CHEST: Symmetric, unlabored respirations. rhonchi to auscultation. Breath sounds equal bilaterally. GASTROINTESTINAL: Abdomen soft, non-tender, nondistended. No guarding. Bowel sounds present. Nepro-Goal rate 55ml/hr GENITOURINARY: Without palpable bladder distension. Sloan catheter in with clear urine. Scrotal edema. MUSCULOSKELETAL: Gout tophi to fingers, knees, elbows and both ankles. Trace edema to all 4 extremities. NEUROLOGICAL: Tracheostomy on T-bruce 28%. Patient is awake and alert , followed simple commands with all 4 extremities, trying to mouth some words. PSYCHIATRIC: No obvious anxiety/depression. no apparent hallucinations or other psychotic thought process. . Diagnostic Tests Laboratory Laboratory Tests Test 03/25/17 15:58 03/27/17 08:06 03/27/17 18:15 03/28/17 07:47 White Blood Count 26.3 TH/MM3 (4.0-11.0) 21.6 TH/MM3 (4.0-11.0) 21.2 TH/MM3 (4.0-11.0) Red Blood Count 3.73 MIL/MM3 (4.50-5.90) 3.47 MIL/MM3 (4.50-5.90) 3.97 MIL/MM3 (4.50-5.90) Hemoglobin 10.7 GM/DL (13.0-17.0) 9.9 GM/DL (13.0-17.0) 11.2 GM/DL (13.0-17.0) Hematocrit 34.7 % (39.0-51.0) 31.5 % (39.0-51.0) 35.7 % (39.0-51.0) Mean Corpuscular Volume 92.9 FL (80.0-100.0) 90.7 FL (80.0-100.0) 89.9 FL (80.0-100.0) Mean Corpuscular Hemoglobin 28.6 PG (27.0-34.0) 28.6 PG (27.0-34.0) 28.2 PG (27.0-34.0) Mean Corpuscular Hemoglobin Concent 30.8 % (32.0-36.0) 31.5 % (32.0-36.0) 31.4 % (32.0-36.0) Red Cell Distribution Width 17.0 % (11.6-17.2) 16.8 % (11.6-17.2) 17.1 % (11.6-17.2) Platelet Count 375 TH/MM3 (150-450) 335 TH/MM3 (150-450) 280 TH/MM3 (150-450) Mean Platelet Volume 9.5 FL (7.0-11.0) 9.0 FL (7.0-11.0) 9.1 FL (7.0-11.0) Neutrophils (%) (Auto) 90.7 % (16.0-70.0) Lymphocytes (%) (Auto) 2.8 % (9.0-44.0) Monocytes (%) (Auto) 5.9 % (0.0-8.0) Eosinophils (%) (Auto) 0.4 % (0.0-4.0) Basophils (%) (Auto) 0.2 % (0.0-2.0) Neutrophils # (Auto) 23.9 TH/MM3 (1.8-7.7) Lymphocytes # (Auto) 0.7 TH/MM3 (1.0-4.8) Monocytes # (Auto) 1.6 TH/MM3 (0-0.9) Eosinophils # (Auto) 0.1 TH/MM3 (0-0.4) Basophils # (Auto) 0.1 TH/MM3 (0-0.2) CBC Comment AUTO DIFF Differential Total Cells Counted 100 Neutrophils % (Manual) 83 % (16-70) Band Neutrophils % 2 % (0-6) Lymphocytes % 3 % (9-44) Monocytes % 7 % (0-8) Eosinophils % 1 % (0-4) Neutrophils # (Manual) 23.4 TH/MM3 (1.8-7.7) Metamyelocytes 2 % (0-1) Myelocytes 2 % (0-0) Differential Comment FINAL DIFF MANUAL Platelet Estimate NORMAL (NORMAL) Platelet Morphology Comment NORMAL (NORMAL) Blood Urea Nitrogen 68 MG/DL (7-18) 63 MG/DL (7-18) 62 MG/DL (7-18) 59 MG/DL (7-18) Creatinine 1.13 MG/DL (0.60-1.30) 1.05 MG/DL (0.60-1.30) 0.93 MG/DL (0.60-1.30) 0.97 MG/DL (0.60-1.30) Random Glucose 133 MG/DL (74-106) 115 MG/DL (74-106) 87 MG/DL (74-106) 121 MG/DL (74-106) Albumin 2.0 GM/DL (3.4-5.0) Calcium Level 8.2 MG/DL (8.5-10.1) 8.1 MG/DL (8.5-10.1) 8.0 MG/DL (8.5-10.1) 7.9 MG/DL (8.5-10.1) Phosphorus Level 2.3 MG/DL (2.5-4.9) 2.3 MG/DL (2.5-4.9) Sodium Level 150 MEQ/L (136-145) 153 MEQ/L (136-145) 151 MEQ/L (136-145) 154 MEQ/L (136-145) Potassium Level 3.3 MEQ/L (3.5-5.1) 2.7 MEQ/L (3.5-5.1) 3.1 MEQ/L (3.5-5.1) 3.4 MEQ/L (3.5-5.1) Chloride Level 110 MEQ/L (98-107) 113 MEQ/L (98-107) 113 MEQ/L (98-107) 115 MEQ/L (98-107) Carbon Dioxide Level 30.3 MEQ/L (21.0-32.0) 31.5 MEQ/L (21.0-32.0) 29.3 MEQ/L (21.0-32.0) 28.4 MEQ/L (21.0-32.0) Anion Gap 10 MEQ/L (5-15) 9 MEQ/L (5-15) 9 MEQ/L (5-15) 11 MEQ/L (5-15) Estimat Glomerular Filtration Rate 66 ML/MIN (>89) 72 ML/MIN (>89) 82 ML/MIN (>89) 78 ML/MIN (>89) Magnesium Level 2.1 MG/DL (1.5-2.5) 2.1 MG/DL (1.5-2.5) Hematology Comments Test 03/28/17 13:08 Blood Urea Nitrogen 60 MG/DL (7-18) Creatinine 0.93 MG/DL (0.60-1.30) Random Glucose 198 MG/DL (74-106) Calcium Level 7.8 MG/DL (8.5-10.1) Sodium Level 154 MEQ/L (136-145) Potassium Level 3.8 MEQ/L (3.5-5.1) Chloride Level 114 MEQ/L (98-107) Carbon Dioxide Level 31.2 MEQ/L (21.0-32.0) Anion Gap 9 MEQ/L (5-15) Estimat Glomerular Filtration Rate 82 ML/MIN (>89) Result Diagram: 03/28/17 0747 03/28/17 7824 Procedures 01/25/2017- Retrievable IVC Filter placement 01/26/17-lumbar puncture with fluoroscopy-by interventional radiology 02/01/17- lumbar puncture fluoroscopy by interventional radiology 02/10/17- Endotracheal Intubation 02/10/17-left IJ central venous line placed 02/10/17-left femoral arterial line placed 02/11/17-Diagnostic and therapeutic bronchoscopy with bronchoalveolar lavage 02/11/17-Left upper extremity incision and debridement with excision of septic cephalic vein 02/13/17- Extubated 02/20/17- endotracheal intubation 02/20/17- Left subclavian central line placement 02/20/17-Right radial A-line placement 02/22/17-EGD/colonoscopy 02/28/17-right radial a line 02/28/17- Endotracheal intubation 02/28/17- right sided introducer catheter placement 02/28/17- Right IJ central line placement 02/28/17-Right chest tube placement 02/28/17- Embolization of inferior and superior sacral branches of right internal iliac artery 03/01/17- Hemodialysis access catheter 03/03/17-Right IJ central line placement 03/11/17-Extubated 03/13/17- Endotracheal intubation 03/14/17-Tracheostomy placement 03/15/17-PEG tube placement . Assessment and Plan Disease Oriented Problem List: (1) Acute respiratory failure (2) Septic shock (3) Aspiration pneumonia (4) Acute renal failure (5) CKD (chronic kidney disease) stage 3, GFR 30-59 ml/min (6) Cardiomyopathy (7) DVT of lower extremity, bilateral (8) Thrombophlebitis arm (9) Diabetes mellitus (10) Gout (11) HTN (hypertension) (12) Hyperlipidemia Symptom Scale: (1) Shortness of breath 0-10 Scale: Unable to quantify Comment: Currently trached on T piece 28% . (2) Debility 0-10 Scale: Unable to quantify Comment: Progressive. . (3) Pain 0-10 Scale: Unable to quantify Comment: History of falls, gout, arthritis, and currently bedbound. . Pertinent Non-Medical Issues Psychosocial:Patient was born and raised in [place], [place]. Patient was once for 20 years, now and has 2 adult sons. 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 He recently resigned due to failing health. Spiritual: No rastafarian affiliation Legal: Per [place] statutes, in the absence of written advanced directives healthcare proxy decision making falls to the patient's 2 adult children. Patient's son (Davie) lives locally and wishes to participate in the role of the healthcare proxy decision maker. Palliative care has attempted to contact Arnel, has not call back. Patient`s sister Deb and patients brother verbalized that they have been updating Arnel on patient`s medical status. Ethical issues impacting care: No known ethical issues impacting care at this time. . Important Contacts Son-Davie Kerr - Son-Arnel Kerr- -cell -home Sister-Deb Patricio . Prognosis Mr Kerr is a 62 years old male with a past medical history of hypertension, asthma, diabetes, hyperlipidemia, chronic kidney disease and gout. Patient presented to the ED on 01/22/17 complaining of bilateral knee and right arm pain after a mechanical fall 4 or 5 days prior to coming to the ER. Clinical course complicated with increased weakness leading to numerous diagnostic work ups for possible transverse myelitis, DVTs, retroperitoneal hematoma, aspiration pneumonia, intubation x 4 times, septic and hemorrhagic shock requiring support with pressors and multiple pRBC, FFP transfusions as well as platelets and cryo , renal failure requiring hemodialysis and sacral wound Given ongoing comorbidities, and prolonged hospitalization, patient remains at risk for further complications, deterioration and decline. Code Status: Full Code Plan PLAN: Legal decision maker: Patient is currently intubated, sedated on a mechanical ventilation and is not able to make any medical decisions for himself at this time. It is unclear if patient will regain capacity to make medical decisions at this time. Patient has 2 adult sons Davie Kerr and Arnel Kerr. According to [place] Statute, his two aforementioned sons will serve as his health care proxys. Patient`s son Davie is acting in the role of HCP decision maker independently at this time given that he is the one who is reasonably available for consultation. Goals: 03/27/17- Remain Aggressive. Per case management note dated 03/26/17 "[address] [facility] bed wait has been so long that pt no longer meets LTAC criteria". Now has a referral to [facility]. CODE STATUS: Full Code SYMPTOMS: * Shortness of breath: Multifactorial. Patient has had aspiration pneumonia. Patient has been intubated 4 times this hospitalization. Patient has a tracheostomy. Currently on T-Bruce 28%. Patient on duonebs. Patient also on Hydrocortisone 50mg q 6 hours. Recommending consulting Customer Energy Specialist to manage tracheostomy and possible weaning or downsizing tracheostomy. * Pain: Patient presented initially complaining of pain to right wrist and bilateral knees after a mechanical fall. Patient has a history of gout, arthritis, multiple falls and is currently bedbound. Patient on Oxycodone q 4 hours ATC. Patient does not appear to be in pain and currently denies pain by shaking head for "no". Patient also on Hydrocortisone. * Debility: Progressive. Patient has had decline in his health for the past 4 months, including progressively increased weakness and difficulty ambulating and prolonged hospitalization with multiple setbacks. Patient remains at high risk for further physical deconditioning and debility. PT and OT following with patient. PT and OT following. Patient will benefit from getting OOB to a stretcher chair . PT and OT following. Recommending Speech therapy consultation. Palliative care will continue to follow the patient during hospital course as condition evolves, to assist patient/decision-maker with understanding of their medical conditions, weighing benefits/burdens of treatment options, for clarification of goals of treatment. Additionally will assist with any symptoms of palliative concern. . Attestation To help prompt me to consider important information that might be impacting today's encounter and assessment, information from prior notes written by myself or my colleagues may have been "brought forward" into today's note. My signature on this note, however, is an attestation that I personally performed the exam, history, and/or decision-making noted today, and, unless otherwise indicated, the interactions with patient, family, and staff as well as the review of records all occurred today. I also attest that the listed assessment and stated plan reflect my best clinical judgment today based on the combination of historical information, prior notes, and today's exam/ interactions. When time spent is documented, it refers only to time spent today by the signer, or if indicated, combined time spent today by collaborating physician/nurse practitioner. . Aftab Cartwright Mar 28, 2017 15:50
[2017-03-28 21:55] LABS: BICARBONATE 31.4 MEQ/L (21.0-32.0); POTASSIUM 3.2 MEQ/L (3.5-5.1)
[2017-03-28] MEDS: ATORVASTATIN 10 MG TAB PO SCH (22:09)
[2017-03-29] VITALS (11 sets, daily range): BP systolic 122–173; BP diastolic 59–87; PULSE 81–89; RESP 17–19; TEMP 97.2–98.9; O2SAT 94–99
[2017-03-29] MEDS: HYDROCORTISONE SOD SUCCINATE 100 MG VIAL IV PUSH SCH ×4 (01:10→17:33)
[2017-03-29] MEDS: SODIUM CHLORIDE 0.9% FLUSH 10 ML FLUSH IV FLUSH PRN ×2 (01:10→05:59)
[2017-03-29] MEDS: NITROGLYCERIN 2% OINT 1 GM PACKET TOPICAL PRN (01:20)
[2017-03-29] MEDS: oxyCODONE HCL ORAL CONC 5 MG/0.25 ML SYRINGE PO SCH ×6 (01:51→21:11)
[2017-03-29] MEDS: FREE WATER G-TUBE SCH ×2 (01:52→06:00)
[2017-03-29] MEDS: INSULIN NovoLIN REGULAR SUPPLEMENTAL SCALE SQ SCH ×4 (01:53→20:50)
[2017-03-29] MEDS: RESP: ALBUTEROL 2.5 MG/IPRATROPIUM 0.5 MG NEB (SCH) NEB ×4 (04:51→20:15)
[2017-03-29] MEDS: CHLORHEXIDINE 0.12% (ORAL KIT) 15 ML CUP MT SCH ×2 (08:00→20:00)
[2017-03-29] MEDS: INSULIN DETEMIR 100 UNITS/ML VIAL SQ SCH ×2 (09:00→21:12)
[2017-03-29] MEDS: SODIUM CHLORIDE 0.9% FLUSH 10 ML FLUSH IV FLUSH SCH ×3 (09:00→21:00)
[2017-03-29] MEDS: POTASSIUM CHLORIDE 25 MEQ EFFERVESCENT TAB NG SCH (09:33)
[2017-03-29] MEDS: ATENOLOL 25 MG TAB PO SCH ×2 (09:34→21:11)
[2017-03-29] MEDS: FUROSEMIDE 20 MG/2 ML VIAL IV PUSH SCH (09:34)
[2017-03-29] MEDS: LANSOPRAZOLE SOLUTAB 30 MG TAB NG SCH ×2 (09:34→21:11)
[2017-03-29] MEDS: LACTOBACILLUS ACIDOPHILUS TAB PO SCH ×3 (09:34→17:35)
[2017-03-29] MEDS: POTASSIUM CHLOR 20 MEQ PREMIX 100 ML IV SCH ×2 (09:43→12:12)
[2017-03-29] MEDS: DEXTROSE 5% IN WATE 1000ML INJ 1,000 ML IV SCH ×2 (09:44→21:10)
--- NOTE | 2017-03-29 12:24 | HHI.PR ---
Subjective Remarks The patient was resting comfortably. He had no acute complaints. Discussed with nursing. Objective Vitals Vital Signs Date Time Temp Pulse Resp B/P (MAP) Pulse Ox O2 Delivery O2 Flow Rate FiO2 03/29/17 09:57 99 T-piece 6.00 28 03/29/17 09:53 98 T-Piece 5.00 28 03/29/17 09:52 98.9 83 18 142/87 (105) 96 03/29/17 06:01 97.6 82 19 168/83 (111) 96 03/29/17 05:02 98 T-piece 6.00 28 03/29/17 00:23 97.2 84 19 173/81 (111) 96 03/28/17 21:25 98 T-piece 5.00 28 03/28/17 20:30 97.6 80 19 141/77 (98) 96 03/28/17 18:29 98.6 83 18 156/64 (94) 95 03/28/17 14:04 98.5 79 18 169/78 (108) 99 I/O 03/28/17 03/28/17 03/28/17 03/29/17 03/29/17 03/29/17 07:00 15:00 23:00 07:00 15:00 23:00 Intake Total 1860 ml 0 ml Output Total 1750 ml 2000 ml 2000 ml Balance 110 ml -2000 ml -2000 ml Intake Oral 800 ml IV Total 100 ml 0 ml Tube Feeding 660 ml Other 300 ml Output Urine Total 1450 ml 2000 ml 2000 ml Stool Total 300 ml Tube Feeding Residual Discard 0 ml # Bowel Movements 0 Result Diagram: 03/28/17 0747 03/28/172014 Imaging Last Impressions Wrist X-Ray 03/27/17 0000 Signed Impressions: Service Date/Time: Monday, March 27, 2017 13:21 - CONCLUSION: 1. No acute fracture is identified. A portion of the previously documented distal ulna fracture remains visualized. 2. 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 Angelo Allen MD Chest X-Ray 03/14/17 0000 Signed Impressions: Service Date/Time: Tuesday, March 14, 2017 13:41 - CONCLUSION: 1. Tracheostomy in good position. 2. Left lower lung infiltrates and left pleural effusion. Candido Patton MD Aortography 02/28/17 0000 Signed Impressions: Service Date/Time: Tuesday, February 28, 2017 08:01 - CONCLUSION: 1. Active hemorrhage from distal right lateral sacral and iliolumbar branches successfully coil and Gelfoam embolized, as above. Juan Bhakta MD Abdomen/Pelvis CT 02/28/17 0000 Signed Impressions: Service Date/Time: Tuesday, February 28, 2017 06:51 - CONCLUSION: 1. The right retroperitoneal hematoma has increased in size, as above. There are 2 serpiginous arterially enhancing structures visualized, one in the right psoas muscle and another extending into the hematoma at the right iliac fossa. These could represent sites of continued active bleeding. 2. Stable moderate size left and small right pleural effusion with associated compressive atelectasis. 3. Stable small volume of free fluid in the abdomen and pelvis. There is also anasarca. The findings concerning the retroperitoneal hematoma were discussed with Dr. Aguiar via telephone at approximately 7: 10 AM on 02/28/2017. Angelo Allen MD Chest CT 02/27/17 0000 Signed Impressions: Service Date/Time: Monday, February 27, 2017 18:12 - CONCLUSION: 1. Bilateral pleural effusions with bibasilar atelectasis, left greater than right. Tom Sanchez MD Abdomen X-Ray 02/26/17 0000 Signed Impressions: Service Date/Time: Sunday, February 26, 2017 14:52 - CONCLUSION: 1. Nonobstructive bowel gas pattern. Juan Bhakta MD Upper Extremity Ultrasound 02/10/17 0000 Signed Impressions: Service Date/Time: Friday, February 10, 2017 18:46 - CONCLUSION: Occlusive thrombus in the cephalic and basilic veins. Benjamin Person MD Lung Scan- Nuclear Medicine 02/10/17 0000 Signed Impressions: Service Date/Time: Friday, February 10, 2017 22:17 - CONCLUSION: Low probability pulmonary embolism. Candido Patton MD Head CT 02/10/17 0000 Signed Impressions: Service Date/Time: Friday, February 10, 2017 23:51 - CONCLUSION: Negative noncontrast CT brain. Candido Patton MD Lumbar Puncture Fluoroscopy 9/14/17 0000 Signed Impressions: Service Date/Time: January 09:35 - CONCLUSION: Uncomplicated fluoroscopically guided lumbar puncture. CSF was clear. Nabeel Peralta MD Head Magnetic Resonance Angiography 01/27/17 Signed Impressions: Service Date/Time: Friday, January 27, 2017 10:33 - CONCLUSION: No intracranial vascular abnormality is identified. There is no aneurysm visualized. Angelo Allen MD IVC Filter Placement X-Ray 01/25/17 Signed Impressions: Service Date/Time: January 10:29 - CONCLUSION: Uncomplicated inferior vena cava filter placement as above. Yung Fowler MD Thoracic Spine MRI 01/24/17 Signed Impressions: Service Date/Time: Tuesday, January 24, 2017 22:29 - CONCLUSION: 1. Mild degenerative spondylosis most prominently at T11-L1 with slight effacement of the anterior thecal sac and left lateral recess. No significant neural foraminal stenosis. 2. No acute fracture. Juan Bhakta MD Renal Ultrasound 01/23/17 Signed Impressions: Service Date/Time: Monday, January 23, 2017 08:53 - CONCLUSION: 1. Evidence of chronic parenchymal disease of both kidneys. No obstructive uropathy or other acute abnormality demonstrated. 2. Trace ascites, nonspecific. Angelo Garrido MD Lumbar Spine MRI 01/23/17 Signed Impressions: Service Date/Time: Monday, January 23, 2017 17:01 - CONCLUSION: 1. At L4-5 is a broad-based disc protrusion with severe central canal and lateral recess stenosis and flattening of the exiting right L4 nerve root. 2. L5-S1 there is a disc protrusion and moderate stenosis with flattening of the exiting L5 nerve roots bilaterally. 3. At L3-4 there is a moderate to severe central stenosis and lateral recess stenosis with mild foraminal stenosis. 4. No acute fracture or spondylolisthesis. Trace Holloway MD Lower Extremity Ultrasound 01/23/17 Signed Impressions: Service Date/Time: Monday, January 23, 2017 09:53 - CONCLUSION: Bilateral focal lower extremity DVT involving the posterior tibial veins. Angelo Garrido MD Cervical Spine MRI 9/5/17 0000 Signed Impressions: Service Date/Time: Monday, January 23, 2017 17:01 - CONCLUSION: 1. Multilevel cervical spine degenerative changes as above. 2. Mild degrees of spinal stenosis at C3/C4-C6/C7. No cord compression or cord signal abnormality. 3. Age indeterminate left paracentral/foraminal disc protrusion at C6/C7. 4. Multilevel foraminal stenosis, most severe on the left at C6/C7. Please see individual levels above. 5. No fracture or subluxation of the cervical spine. Angelo Garrido MD Brain MRI 01/23/17 0000 Signed Impressions: Service Date/Time: Monday, January 23, 2017 17:01 - CONCLUSION: 1. No acute stroke or other acute intracranial abnormality demonstrated. 2. Moderate severity chronic white matter changes, nonspecific but most likely related to chronic small vessel disease. 3. Few scattered tiny lacunar infarcts of the brainstem. 4. Given the findings are not entirely specific, clinical evaluation for possible multiple sclerosis recommended. Angelo Garrido MD Knee X-Ray 01/22/172053 Signed Impressions: Service Date/Time: Sunday, January 22, 2017 21:17 - CONCLUSION: 1. Evidence of moderate to large joint effusion. 2. No acute fracture or malalignment. 3. Mild 3 compartment osteoarthritic change. Benjamin Person MD Hip and Pelvis X-Ray 01/22/172053 Signed Impressions: Service Date/Time: Sunday, January 22, 2017 21:10 - CONCLUSION: 1. Mild to moderate degenerative change of both hips with no acute fracture or malalignment. There is flattening and remodeling of the right humeral head. Benjamin Person MD Objective Remarks GENERAL: Resting in bed, in no apparent distress. HEENT: Normocephalic. Atraumatic. Pupils equal, round, reactive. NECK: Tracheostomy in place. CHEST: on T piece via tracheostomy, air entry decreased bilaterally at bases. CARDIOVASCULAR: S1-S2 regular, no gallop or murmur. ABDOMEN distended. No rigidity. Umbilical hernia is reducible. No guarding. PEG tube in place. : Positive scrotal edema Sloan in place. MUSCULOSKELETAL: Pulses 2+. 1+ bilateral upper and lower extremity edema. Clean white Bandage/discontinued wound VAC on left upper extremity. NEUROLOGICAL: Awake and alert, has spontaneous eye opening. Opens and closes eyes on command, on T piece via tracheostomy. Moves 4 limbs weakly to stimulation. PSYCH: Calm. Procedures IVC filter placement 01/25/2017 LP 01/26/2017 Medications and IVs Current Medications Medications (Trade) Dose Ordered Sig/Rosalia Route Start Time Stop Time Status Last Admin (NS Flush) 2 ml UNSCH PRN IV FLUSH 01/23/17 00:30 03/29/17 05:59 (NS Flush) 2 ml BID IV FLUSH 01/23/17 09:00 03/29/17 09:34 (Zofran Inj) 4 mg Q6H PRN IVP 01/23/17 00:30 02/26/17 17:23 (Narcan Inj) 0.4 mg UNSCH PRN IV 01/23/17 00:30 (Edna-Colace) 1 tab BID PO 01/23/17 09:00 Future Hold 02/24/17 20:31 (Dulcolax Supp) 10 mg DAILY PRN RECTAL 01/23/17 00:30 (Lipitor) 10 mg HS PO 01/24/17 21:00 Future hold 03/28/17 22:09 (Glucagon Inj) 1 mg UNSCH PRN OTHER 02/11/17 05:45 02/18/17 18:53 (Flomax) 0.4 mg Q12HR PO 02/17/17 15:00 Future Hold 02/26/17 08:49 (Lovenox Inj) 100 mg Q12H SQ 02/18/17 12:00 Future Hold 02/26/17 16:20 (Lactinex) 1 tab TID PO 02/19/17 13:00 03/29/17 09:34 (Apresoline Inj) 10 mg Q30M PRN IV PUSH 02/20/17 11:45 03/26/17 12:18 (D50w (Vial) Inj) 25 ml UNSCH PRN IV PUSH 02/20/17 12:45 03/27/17 13:20 (Questran Light Pkt) 4 gm Q12HR PO 02/25/17 21:00 Future Hold 02/27/17 10:32 (Aldactone) 25 mg DAILY PO 02/27/17 09:00 Future Hold (Peridex 0.12% Liq) 15 ml BID@08,20 MT 02/28/17 08:00 11/7/17 08:00 (Albuterol Neb) 2.5 mg Q2HR NEB PRN NEB 02/28/17 07:45 03/21/17 19:21 (NS Flush) UNSCH PRN IV FLUSH 03/01/17 13:00 (Heparin Inj) UNSCH PRN IV FLUSH 03/01/17 13:00 (NS Flush) DAILY IV FLUSH 03/04/17 09:00 03/26/17 09:00 (NS Flush) UNSCH PRN IV FLUSH 03/03/17 18:45 (Roxicodone Intensol Liq) 10 mg Q4H PO 03/05/17 14:00 03/29/17 09:35 (Prevacid Odt) 30 mg BID NG 03/07/17 21:00 03/29/17 09:34 (Tylenol 650 Mg/ 20 ml Liq) 650 mg Q6H PRN PO 03/09/17 10:15 03/14/17 05:24 (Trandate Inj) 20 mg Q4H PRN IV 03/12/17 04:30 03/17/17 12:25 (Tenormin) 25 mg Q12HR PO 03/12/17 10:00 03/29/17 09:34 (Epogen Inj) 10,000 units UNSCH PRN IV PUSH 03/17/17 11:30 03/22/17 10:52 (Nitroglycerin 2% Oint) 2 inch Q6H PRN TOPICAL 03/23/17 14:00 03/29/17 01:20 (NovoLIN R SUPPLEMENTAL SCALE) 1 Q6H SQ 03/26/17 14:00 03/29/17 08:00 (Lasix Inj) 20 mg DAILY IV PUSH 03/27/17 09:00 Future Hold 03/29/17 09:34 (Duoneb Neb) 1 ampule Q6HR NEB NEB 03/27/17 16:00 03/29/17 09:57 (K-Lyte Cl Eff) 25 meq Q12HR NG 03/27/17 21:00 03/29/17 09:33 (Levemir Inj) 10 units BID SQ 03/27/17 21:00 03/29/17 09:00 (Norvasc) 10 mg DAILY PO 03/28/17 09:00 03/29/17 09:34 (SoluCORTEF INJ) 25 mg Q6HR IV PUSH 03/28/17 12:00 03/29/17 05:58 Potassium Chloride 100 ml @ 50 mls/hr Q2H IV 03/29/17 10:00 03/29/17 13:59 03/29/17 09:43 Dextrose 1,000 ml @ 100 mls/hr Q10H IV 03/29/17 10:00 03/29/17 09:44 Date of Insertion: Mar 03, 2017 Line: Central Venous Catheter Side: Right Location: Internal, Jugular A/P Problem List: (1) Transverse myelitis ICD Code: G37.3 - Acute transverse myelitis in demyelinating disease of central nervous system Status: Acute (2) Septic shock ICD Code: A41.9 - Sepsis, unspecified organism; R65.21 - Severe sepsis with septic shock Status: Resolved (3) HCAP (healthcare-associated pneumonia) ICD Code: J18.9 - Pneumonia, unspecified organism (4) Acute respiratory failure with hypoxia and hypercarbia ICD Code: J96.01 - Acute respiratory failure with hypoxia; J96.02 - Acute respiratory failure with hypercapnia Status: Resolved (5) Hyperlipidemia ICD Code: E78.5 - Hyperlipidemia, unspecified Status: Chronic (6) HTN (hypertension) ICD Code: I10 - Essential (primary) hypertension (7) DVT of lower extremity, bilateral ICD Code: I82.403 - Acute embolism and thrombosis of unspecified deep veins of lower extremity, bilateral (8) Diabetes mellitus with hyperglycemia ICD Code: E11.65 - Type 2 diabetes mellitus with hyperglycemia (9) Hypocalcemia ICD Code: E83.51 - Hypocalcemia (10) Hypernatremia ICD Code: E87.0 - Hyperosmolality and hypernatremia (11) Hypokalemia ICD Code: E87.6 - Hypokalemia (12) Acute metabolic encephalopathy ICD Code: G93.41 - Metabolic encephalopathy (13) Quadriparesis ICD Code: G82.50 - Quadriplegia, unspecified Status: Acute (14) BREEZY (acute kidney injury) ICD Code: N17.9 - Acute kidney failure, unspecified (15) Diarrhea ICD Code: R19.7 - Diarrhea, unspecified (16) Abdominal pain ICD Code: R10.9 - Unspecified abdominal pain (17) Hypoglycemia ICD Code: E16.2 - Hypoglycemia, unspecified (18) Urinary retention ICD Code: R33.9 - Retention of urine, unspecified (19) Acute hypoxemic respiratory failure ICD Code: J96.01 - Acute respiratory failure with hypoxia (20) Sepsis ICD Code: A41.9 - Sepsis, unspecified organism Assessment and Plan Acute metabolic encephalopathy- persistent Quadriparesis secondary to suspected transverse myelitis Recurrent falls Pain secondary to retroperitoneal hematoma. Suspected transverse myelitis. Received methylprednisolone 250 mg IV every 6 hours 01/27-02/02, started back on hydrocortisone 02/21/17, initially tapering to 50 mg IV every 8 hours starting received 1 dose at 2100 prior to becoming hypotensive. weaning hydrocortisone taper and stopped 03/09. Resumed hydrocortisone 50mg IV Q6hrly on 03/14 as patient became hypotensive following intubation on 03/13 requiring levophed. LP 01/26 and 02/01. CSF culture negative 01/26, 02/01 Oligoclonal bands negative. CSF/serum IgG index is not elevated. VDRL nonreactive. Cryptococcal antigen negative. Brain MRI 01/23 no acute stroke. Few scattered lacunar infarcts of the brainstem. Moderate chronic white matter changes. MRI cervical/thoracic spine- mild spinal stenosis C3/C4 to C6/C7. No cord compression. RPR negative. Neurology has been following, Dr. Crenshaw. Repeat CT brain 02/10 - negative. - Continue PT/OT. - Continue pain control with a bowel regimen. Acute hypoxemic respiratory failure Healthcare associated pneumonia/Aspiration Pneumonia Right-sided chest tube placed for pleural effusion. VQ scan 02/10 low probability for PE. CT chest 02/10 - left lower lobe collapse and consolidation. CT chest 02/27 revealed right greater than left pleural effusions. Extubated 02/23. Intubated 02/28. Extubated 03/11, Reintubated on . Right-sided chest tube placement 02/28 nursing home aide, removed 03/05. Failed attempt to wean successfully due to volume overload and multiple organ failure. underwent perc tracheostomy 03/14. - pulmonology following for trach care, possible downsizing. Consult appreciated. - Albuterol/ipratropium aerosols every 6 hours with albuterol aerosols every 2 hours prn. Severe sepsis - resolved. Systolic heart failure likely chronic with ejection fraction 20-25% Hyperlipidemia History of hypertension Mild TR Sinus tachycardia Elevated troponin likely type II demand ischemia Restarted on Levophed on 03/09 following intubation, titrated off after starting hydrocortisone. Started hydrocortisone stress dose on 03/14 (as patient has been on steroids and was just tapered off on 03/09.) Patient had been hypotensive twice when attempting to wean off stress dose hydrocortisone in the past. EKG with nonspecific ST-T changes. 2-D echocardiogram 01/11 revealed EF 20-25%. Mild TR. Pulmonary arterial pressures were normal around 20. Troponin 6.55 on 03/02. - Likely will need stress test of heart once stable. Cannot anticoagulate due to retroperitoneal hematoma at the present time. - Currently on atenolol 25 mg twice a day. Continue amlodipine, increased to 10 mg daily. - As needed Nitropaste, labetalol and hydralazine for hypertension. - Atorvastatin 10 mg by mouth daily for dyslipidemia. - Lasix on hold. Large right retroperitoneal hematoma Erosive esophagitis Adematous/hyperplastic colon polyps Severe acute protein calorie malnutrition Nausea/vomiting - resolved. Diarrhea Gastritis Diverticulosis Internal and external hemorrhoids Hiatal hernia Elevated lipase 02/27 CT chest/abdomen and pelvis - 9.4 x 7.5 renal and 16 x 12 cm right psoas muscle hematoma. Fluid around liver and spleen. Right-sided nephrolithiasis. CTA abdomen 02/28 - possible blushing around iliac/lumbar vessels. Discussed with IR. s/p attempted embolization. CT abdomen and pelvis 02/10 atrophic left kidney. Bilateral inguinal hernias fat-containing. Nonobstructing 12 mm right kidney stone. Repeat CT abd/pelvis did not show evidence of obstruction. EGD/ Colonoscopy-02/22/17 showed gastritis esophagitis, hiatal hernia, diverticulosis and multiple polyps in descending colon and sigmoid which were snared biopsied. Biopsy pending. Dr. Lewis consulted for intervention if needed for elevated IAP. will continue to check as needed. Status post PEG tube placement by . - Lansoprazole 30 mg twice a day for GI prophylaxis. - Discontinued metoclopramide 5 milligrams IV every 8 hours today. - Dietary consult placed for appropriate tube feeding. Acute kidney injury in the setting of Chronic kidney disease stage 3-4 History of uric acid kidney stones with prior stent BPH Nonfunctioning left kidney Acute intravascular volume overload Hypokalemia Sloan placed due to urinary retention and worsening creatinine Maintain Sloan secondary to urinary retention Monitor intake and output q1hr. Monitor electrolytes. RIOS/SPEP negative. 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 Recommended nephrostomy tube if obstruction. Nephrology consulted, hemodialysis per nephrology. Making urine. Due to acute illness holding tamsulosin 0.4 mg by mouth daily for BPH. - Potassium repleted. Still with severe hypokalemia. Monitor closely. Septic shock- resolved. Abscess and Suppurative thrombophlebitis left upper extremity MSSA bacteremia Klebsiella UTI ESBL positive Acute aspiration pneumonia/HCAP Previously treated with Bactrim, ertapenem, intermittent vancomycin, nafcillin. Blood cultures 2, UA ESBL positive Klebsiella UTI. Sputum 03/14 - Pseudomonas came back resistant to imipenem. Repeat blood cultures 2 and sputum 03/08 pending. Urine negative. - Switched from meropenem to ceftazidime on 03/19, vancomycin IV 1 dose given on 03/19 and 03/22. Follow up with ID. Acute blood loss anemia DVT, bilateral posterior tibial vein, IVC filter Septic thrombophlebitis with occlusive thrombus mid cephalic and basilic vein side Received 10 PRBC, 14 FFP, 2 platelets, 1 cryo-02/28 Received 3 units PRBCs Serial hemoglobins every 6 hours Recheck coags Ultrasound 01/23/17 - Bilateral lower extremity with occlusive posterior tibial vein DVTs. Heparin was initially started for DVT but was placed on hold due to LP with suspected traumatic tap. Currently holding full anticoagulation with enoxaparin 100 mg IV twice a day due to anemia as of 02/26. IVC filter was placed 01/25/17. Ultrasound LUE 02/10 occlusive thrombus mid cephalic vein, basilic veins. Transfuse 3 units PRBCs 02/27. Transfuse 2 units PRBCs 03/01. Transfused 1 unit PRBCs on 03/14. - follow CBC. Diabetes mellitus Hypoglycemia History of prior adrenal insufficiency with shock Gout EGD colonoscopy completed 02/22. Gastritis and esophagitis, colon polyps. Started Hydrocortisone 100 mg every 8 hours 02/21/17 (Recent high dose steroids use now hypotensive, hypoglycemic), steroids had been tapered off. Resumed stress dose steroids on 03/16 as patient back on Levophed for pressor support after intubation. - wean hydrocortisone to 25 mg IV every 6 hours. - Accu-Cheks to maintain euglycemia Novulin R every 4 hours. Low Regimen. Currently on insulin detemir 10 units twice a day. Right distal ulna fracture. Dr. Nathan with orthopedics has evaluated and recommended nonoperative management. - Right wrist splint in place. Hypernatremia S/t NPO status. - follow BMP. Start D5W. PROPH: Lansoprazole 30 mg twice a day twice a day for stress ulcer prophylaxis. Has IVC filter. Therapeutic enoxaparin currently on hold for retroperitoneal hematoma Discharge Planning Awaiting placement Problem Qualifiers (1) Hyperlipidemia: Qualified Codes: E78.5 - Hyperlipidemia, unspecified (2) HTN (hypertension): Qualified Codes: I10 - Essential (primary) hypertension (3) Diabetes mellitus with hyperglycemia: Qualified Codes: E11.65 - Type 2 diabetes mellitus with hyperglycemia (4) Diarrhea: Qualified Codes: A09 - Infectious gastroenteritis and colitis, unspecified (5) Abdominal pain: Qualified Codes: R10.84 - Generalized abdominal pain (6) Sepsis: Qualified Codes: A41.9 - Sepsis, unspecified organism Benjamin Christian DO Mar 29, 2017 12:24
--- NOTE | 2017-03-29 13:10 | HHI.IDPN ---
Subjective Subjective Remarks Patient is a 62-year-old male, admitted to the hospital for evaluation of pain in his right wrist. He gave a history of falling about a week ago and apparently had immediate pain in the right wrist. He did not seek any medical attention initially because reportedly he was very busy. He eventually presented, and he was found to have a distal ulnar fracture on plain films. He also had some redness and swelling. Orthopedics saw the patient, and was being treated conservatively with the splint. During this hospitalization also he started complaining of generalized weakness but more so in his lower extremity than his upper extremity. He had swelling in both lower extremity which revealed evidence of DVT in the posterior tibial veins. Neurology had seen the patient and he underwent lumbar puncture which apparently was traumatic. Patient was therefore not given anticoagulation because of the traumatic LP, and he underwent placement of an IVC filter on January 25. Patient had another lumbar puncture on February 01. He was felt to have transverse myelitis, and he was given high-dose IV Solu-Medrol from January 27 to February 02. There was apparently some improvement in his weakness. The imaging studies done for his weakness showed some spinal stenosis, and neurosurgery was consult that and recommended that there was no surgical intervention to be done. Patient has been stabilizing, but last night apparently deteriorated, and he ended up getting intubated, and had significant hypotension requiring pressors. There was also an ultrasound done of his left upper extremity which showed DVT, and there was evidence of superior 2 thrombophlebitis. Vascular surgery was consult to it and he had IND on his left upper extremity. Patient has had some fevers since yesterday. 2 blood cultures were done yesterday and they're now reported as growing gram-positive cocci in [place] in clusters. He is currently sedated and intubated. He is on Levophed and vasopressin. A central line was placed as well as a femoral a line. He apparently had an IV in his left upper extremity and that was removed yesterday. Patient also has history of chronic kidney disease, and nephrology evaluated the patient. He was just being monitored for his renal insufficiency. Infectious disease consultation has been requested to evaluate the patient. Notes reviewed Temps ok BP good Clinically stable Off Abx Antibiotics Fortaz IV - finished 03/27 Past Medical History Reviewed Allergies: Coded Allergies: levofloxacin (Verified Allergy, Severe, 01/22/17) Objective . Vital Signs Date Time Temp Pulse Resp B/P (MAP) Pulse Ox O2 Delivery O2 Flow Rate FiO2 03/29/17 13:00 85 03/29/17 09:57 99 T-piece 6.00 28 03/29/17 09:53 98 T-Piece 5.00 28 03/29/17 09:52 98.9 83 18 142/87 (105) 96 03/29/17 06:01 97.6 82 19 168/83 (111) 96 03/29/17 05:02 98 T-piece 6.00 28 03/29/17 00:23 97.2 84 19 173/81 (111) 96 03/28/17 21:25 98 T-piece 5.00 28 03/28/17 20:30 97.6 80 19 141/77 (98) 96 03/28/17 18:29 98.6 83 18 156/64 (94) 95 03/28/17 14:04 98.5 79 18 169/78 (108) 99 . Laboratory Tests Test 03/28/17 07:47 White Blood Count 21.2 TH/MM3 Red Blood Count 3.97 MIL/MM3 Hemoglobin 11.2 GM/DL Hematocrit 35.7 % Mean Corpuscular Volume 89.9 FL Mean Corpuscular Hemoglobin 28.2 PG Mean Corpuscular Hemoglobin Concent 31.4 % Red Cell Distribution Width 17.1 % Platelet Count 280 TH/MM3 Mean Platelet Volume 9.1 FL Hematology Comments Laboratory Tests Test 03/27/17 18:15 03/28/17 07:47 03/28/17 13:08 03/28/17 20:15 Blood Urea Nitrogen 62 MG/DL 59 MG/DL 60 MG/DL 57 MG/DL Creatinine 0.93 MG/DL 0.97 MG/DL 0.93 MG/DL 0.93 MG/DL Random Glucose 87 MG/DL 121 MG/DL 198 MG/DL 119 MG/DL Calcium Level 8.0 MG/DL 7.9 MG/DL 7.8 MG/DL 8.2 MG/DL Sodium Level 151 MEQ/L 154 MEQ/L 154 MEQ/L 155 MEQ/L Potassium Level 3.1 MEQ/L 3.4 MEQ/L 3.8 MEQ/L 3.2 MEQ/L Chloride Level 113 MEQ/L 115 MEQ/L 114 MEQ/L 114 MEQ/L Carbon Dioxide Level 29.3 MEQ/L 28.4 MEQ/L 31.2 MEQ/L 31.4 MEQ/L Anion Gap 9 MEQ/L 11 MEQ/L 9 MEQ/L 10 MEQ/L Estimat Glomerular Filtration Rate 82 ML/MIN 78 ML/MIN 82 ML/MIN 82 ML/MIN Magnesium Level 2.1 MG/DL Imaging Chest X-Ray 03/14/17 0000 Signed Impressions: Service Date/Time: Tuesday, March 14, 2017 13:41 - CONCLUSION: 1. Tracheostomy in good position. 2. Left lower lung infiltrates and left pleural effusion. Candido Patton MD Aortography 02/28/17 0000 Signed Impressions: Service Date/Time: Tuesday, February 28, 2017 08:01 - CONCLUSION: 1. Active hemorrhage from distal right lateral sacral and iliolumbar branches successfully coil and Gelfoam embolized, as above. Juan Bhakta MD Abdomen/Pelvis CT 02/28/17 0000 Signed Impressions: Service Date/Time: Tuesday, February 28, 2017 06:51 - CONCLUSION: 1. The right retroperitoneal hematoma has increased in size, as above. There are 2 serpiginous arterially enhancing structures visualized, one in the right psoas muscle and another extending into the hematoma at the right iliac fossa. These could represent sites of continued active bleeding. 2. Stable moderate size left and small right pleural effusion with associated compressive atelectasis. 3. Stable small volume of free fluid in the abdomen and pelvis. There is also anasarca. The findings concerning the retroperitoneal hematoma were discussed with Dr. Aguiar via telephone at approximately 7: 10 AM on 02/28/2017. Angelo Allen MD Chest CT 02/27/17 0000 Signed Impressions: Service Date/Time: Monday, February 27, 2017 18:12 - CONCLUSION: 1. Bilateral pleural effusions with bibasilar atelectasis, left greater than right. Tom Sanchez MD Abdomen X-Ray 02/26/17 0000 Signed Impressions: Service Date/Time: Sunday, February 26, 2017 14:52 - CONCLUSION: 1. Nonobstructive bowel gas pattern. Juan Bhakta MD Upper Extremity Ultrasound 02/10/17 0000 Signed Impressions: Service Date/Time: Friday, February 10, 2017 18:46 - CONCLUSION: Occlusive thrombus in the cephalic and basilic veins. Benjamin Person MD Lung Scan-V Nuclear Medicine 02/10/17 Signed Impressions: Service Date/Time: Friday, February 10, 2017 22:17 - CONCLUSION: Low probability pulmonary embolism. Candido Patton MD Head CT 02/10/17 Signed Impressions: Service Date/Time: Friday, February 10, 2017 23:51 - CONCLUSION: Negative noncontrast CT brain. Candido Patton MD Wrist X-Ray 02/06/17 Signed Impressions: Service Date/Time: Monday, February 06, 2017 12:50 - CONCLUSION: Minimally displaced distal radius and ulnar fractures. Armando Dodd MD Lumbar Puncture Fluoroscopy 02/01/17 Signed Impressions: Service Date/Time: January 09:35 - CONCLUSION: Uncomplicated fluoroscopically guided lumbar puncture. CSF was clear. Nabeel Peralta MD Head Magnetic Resonance Angiography 01/27/17 Signed Impressions: Service Date/Time: Friday, January 27, 2017 10:33 - CONCLUSION: No intracranial vascular abnormality is identified. There is no aneurysm visualized. Angelo Allen MD IVC Filter Placement X-Ray 01/25/17 Signed Impressions: Service Date/Time: January 10:29 - CONCLUSION: Uncomplicated inferior vena cava filter placement as above. Yung Fowler MD Thoracic Spine MRI 01/24/17 Signed Impressions: Service Date/Time: Tuesday, January 24, 2017 22:29 - CONCLUSION: 1. Mild degenerative spondylosis most prominently at T11-L1 with slight effacement of the anterior thecal sac and left lateral recess. No significant neural foraminal stenosis. 2. No acute fracture. Juan Bhakta MD Renal Ultrasound 01/23/17 Signed Impressions: Service Date/Time: Monday, January 23, 2017 08:53 - CONCLUSION: 1. Evidence of chronic parenchymal disease of both kidneys. No obstructive uropathy or other acute abnormality demonstrated. 2. Trace ascites, nonspecific. Angelo Garrido MD Lumbar Spine MRI 01/23/17 Signed Impressions: Service Date/Time: Monday, January 23, 2017 17:01 - CONCLUSION: 1. At L4-5 is a broad-based disc protrusion with severe central canal and lateral recess stenosis and flattening of the exiting right L4 nerve root. 2. L5-S1 there is a disc protrusion and moderate stenosis with flattening of the exiting L5 nerve roots bilaterally. 3. At L3-4 there is a moderate to severe central stenosis and lateral recess stenosis with mild foraminal stenosis. 4. No acute fracture or spondylolisthesis. Trace Holloway MD Lower Extremity Ultrasound 01/23/17 Signed Impressions: Service Date/Time: Monday, January 23, 2017 09:53 - CONCLUSION: Bilateral focal lower extremity DVT involving the posterior tibial veins. Angelo Garrido MD Cervical Spine MRI 01/23/17 Signed Impressions: Service Date/Time: Monday, January 23, 2017 17:01 - CONCLUSION: 1. Multilevel cervical spine degenerative changes as above. 2. Mild degrees of spinal stenosis at C3/C4-C6/C7. No cord compression or cord signal abnormality. 3. Age indeterminate left paracentral/foraminal disc protrusion at C6/C7. 4. Multilevel foraminal stenosis, most severe on the left at C6/C7. Please see individual levels above. 5. No fracture or subluxation of the cervical spine. Angelo Garrido MD Brain MRI 01/23/17 Signed Impressions: Service Date/Time: Monday, January 23, 2017 17:01 - CONCLUSION: 1. No acute stroke or other acute intracranial abnormality demonstrated. 2. Moderate severity chronic white matter changes, nonspecific but most likely related to chronic small vessel disease. 3. Few scattered tiny lacunar infarcts of the brainstem. 4. Given the findings are not entirely specific, clinical evaluation for possible multiple sclerosis recommended. Angelo Garrido MD Knee X-Ray 01/22/172053 Signed Impressions: Service Date/Time: Sunday, January 22, 2017 21:17 - CONCLUSION: 1. Evidence of moderate to large joint effusion. 2. No acute fracture or malalignment. 3. Mild 3 compartment osteoarthritic change. Benjamin Person MD Hip and Pelvis X-Ray 01/22/172053 Signed Impressions: Service Date/Time: Sunday, January 22, 2017 21:10 - CONCLUSION: 1. Mild to moderate degenerative change of both hips with no acute fracture or malalignment. There is flattening and remodeling of the right humeral head. Benjamin Person MD Physical Exam GENERAL: Awake and following commands, NAD, on T-piece SKIN: Cool and dry. No generalized rash. Still edematous EYES: [place] conjunctiva. No petechia or hemorrhage. EARS, NOSE AND THROAT: Nose without bleeding or purulent nasal discharge. Dry oral mucosa NECK: Trachea midline. Supple and no meningeal signs. Trach site ok CARDIOVASCULAR: Regular rate and rhythm. Soft heart sounds. No murmurs RESPIRATORY: Coarse BS bilaterally, decreased at bases. ABDOMEN: Soft, mildly distended, PEG site ok. Mild tenderness, no guarding EXTREMITIES: No clubbing, cyanosis. Edema feet better; edema hands better : very swollen scrotum, has a lot of sediment in his cath tubing NEUROLOGICAL: awake and following commands PSYCHIATRIC: Calm and cooperative LINE: Lines with no evidence of infection Assessment & Plan Remarks IMPRESSION Fevers - resolved - had Kleb and Sten mal in sputum, S/P Rx - now with Pseudomonas S/P Rx 03/27 - PSAE R to Imipenem Leukocytosis HCAP, Pseudomonas now, just completed Rx 03/27 - previously Kleb and Sten mal, S/P Rx with Bactrim Shock, resolved Large R retroperitoneal bleed, S/P multiple transfusions and S/P coiling of bleeders Elevated amylase and lipase, better Anemia, due to bleed, retroperitoneal MSSA sepsis, due to suppurative thrombophlebitis LUE, S/P I and D and excision of portion of cephalic vein - S/P Rx Respiratory failure, has had several intubations - reintubated again 02/28, extubated 03/11 - reintubated again - S/P trach 03/14 Recent Rx 7 days high dose solumedrol for transverse myelitis Wu LE DVT has IVC filter placed 01/25 - ?hypercoagulable state Chronic kidney disease, worsening creatinine - shock and compression of ureter by hematoma Known DM, HTN Gouty tophi both hands and feet Diarrhea, C diff negative UTI, GNR - repeat UA better, but a lot of sediment in the urine Thrombocytopenia, no evidence of DIC, ?meds, ?infection, ?due to bleed - improving RECOMMENDATION S/P Rx for MSSA sepsis S/P Rx PNA Monitor off Abx Monitor for S/Sxs of new infection Monitor progress Clinically doing well from ID standpoint D/W Irene Syed MD Mar 29, 2017 13:10
--- NOTE | 2017-03-29 14:04 | PD.WCN.NOT ---
Wound Consult Description: Patient seen for follow up of Unstageable wound to sacrococcygeal area Communicated with: ROHINI sosa Recommendation: Continue to offload pressure from sacrum and right buttock with Q2H turns. Please Continue current recommendations for wound care as follows: Cleanse wound to sacral area with normal saline or wound cleanser and pat dry, apply Hydrogel to eschar only cover with dry 4x4 gauze. Cover entire wound area with ABD pads, secured with tape. Please apply skin prep to periwound before applying tape. Please cleanser areas of partial thickness skin loss to periwound of sacrococcygeal wound and R flank with normal saline and pat dry before covering wounds with bordered gauze. changed dressings daily Apply Calazime barrier cream to scrotal and bilateral groin areas and leave open to air. Would recommend after sutures to trach to cleanse wound below trach with normal saline and apply Optifoam basic secured with paper tape, change every 3 days or PRN Additional Information: Patient seen on [address] [place] [address] for follow up of Sacral wound . Patient turned with maximum assist to L side with the assistance of advertising copy writer, and Leny sosa, Removed adhesive foam dressing dated 03/27 and gauze pad to reveal Sacrococcygeal and bilateral buttocks wound. Dignishield in place is leaking, tube appears to need irrigation .Current treatment for wound is noted above. Wound cleansed with normal saline. Wound bed presents with ~70% thinner moist eschar, ~20% pink tissue and ~10% white tissue. Wound has minimal sero- sanguinous drainage that is without odor. Periwound has improved still noted with mild blanching erythema.Small skin tear with partial thickness skin loss is noted at 2 o'clock. Wound measures ~14cm x ~11cm x eschar. Wound margin are jagged between 10 and 2 o'clock and then from 5 to 7 o'clock. Wound has a round shape and covers the sacrum, coccyx, and bilateral buttocks. Applied hydrogel just over black eschar to soften, dry 4x4 gauze was then applied just over eschar. Covered entire wound with two ABD pads, secured with silk tape. Sprayed skin prep to periwound and before applying tape.Patient is laying on [place] airapy bed with One clean ultra sorb pad under patient for incontinence management. Patient positioned off bottom to offload pressure from elbert prominences. Another small area of partial thickness skin loss is seen on R flank area Wound measures ~3cm x ~3cm x~<0.1cm. L heel previously noted unstageable wound is now noted covered with scab and appears to be resolving. Patient is also noted with device related pressure injury below trach site. Trach is sutured in place. Wound is noted with ~50% pink tissue and ~50% yellow tissue. Wound measures ~1cm x ~3cm x ~0.4cm.Drain sponge is in place now. Would recommend after sutures are removed to apply Optifoam basic secured with tape and change every 3 days or PRN if saturated or dislodged.Discussed current wound care orders in place, and how often to change dressing with ROHINI Michele.Rohini Michele will also inquire about irrigation order for Dignisheild. Will reassess sacrococcygeal wound and stage 3 pressure injury under trach next week for further recommendations. Ashley Fuller [facility] Mar 29, 2017 14:04
--- NOTE | 2017-03-29 15:53 | HHI.HCPN ---
Reason for visit a. To assist with evaluation and management of symptoms including: shortness of breath, pain, debility b. To assist medical decision maker(s) with: better understanding of current medical conditions; weighing benefits/burdens of medical treatment options; making medical treatment decisions. Subjective/Interval History Mr Kerr is a 62 years old male with a past medical history of hypertension, asthma, diabetes, hyperlipidemia, chronic kidney disease and gout. Patient presented to the ED on 01/22/17 complaining of bilateral knee and right arm pain after a mechanical fall 4 or 5 days prior to coming to the ER. Patient has been experiencing progressive weakness of bilateral lower extremities as well as bilateral upper extremities prior to ER visit. Pulmonology Dr. Estrada consulted 03/28/17 for tracheostomy management recommended downsizing tracheostomy to a #6 and weaning off oxygen to O2 sats > 90%. Wound care reconsulted for evaluation and treatment recommendations for wound to wound to sacrococcygeal area. Patient seen and assessed in room. Physical Therapist transferring patient back to bed after sitting up for approximately 1 hour on the stretcher chair. Noted wound to tracheostomy insertion area. Patient sleepy , easily arousable and moves all extremities to command. Patient talking around his trach and denies pain. Patient is afebrile. SBP 140s-170s. O2 saturation mid to high 90s on T-Bruce 28%. No laboratory workup today. Case discussed with bedside RN Leny. Discussed notifying bark grinder of wound to tracheostomy insertion area. . Advance Directives Living Will: Never completed Health Care Surrogate: Never completed Durable Power of Manager Culture: Never completed Advance Directive Specifics Documented care wishes: No known documented care wishes have been completed. . Objective Vital Signs Date Time Temp Pulse Resp B/P (MAP) Pulse Ox O2 Delivery O2 Flow Rate FiO2 03/29/17 13:08 98.7 89 17 144/74 (97) 94 03/29/17 13:00 85 03/29/17 09:57 99 T-piece 6.00 28 03/29/17 09:53 98 T-Piece 5.00 28 03/29/17 09:52 98.9 83 18 142/87 (105) 96 03/29/17 06:01 97.6 82 19 168/83 (111) 96 03/29/17 05:02 98 T-piece 6.00 28 03/29/17 00:23 97.2 84 19 173/81 (111) 96 03/28/17 21:25 98 T-piece 5.00 28 03/28/17 20:30 97.6 80 19 141/77 (98) 96 03/28/17 18:29 98.6 83 18 156/64 (94) 95 Intake & Output 03/29/17 03/29/17 07:00 19:00 Output Total 2000 ml Balance -2000 ml Output Urine Total 2000 ml Physical Exam CONSTITUTIONAL/GENERAL: This is an adequately nourished patient, trached on T piece, 28% TUBES/LINES/DRAINS: PEG tube, Tracheostomy, PIVs, FC SKIN: No jaundice. Ecchymoses on upper extremities. Sacral pressure wound and L heel pressure injury. Wound to anterior neck - tracheostomy insertion area. Afebrile. Not diaphoretic. HEAD: Atraumatic. Normocephalic. EYES: Pupils equal and round, slight reaction.No scleral icterus. No injection or drainage. Fundi not examined. ENT: Trached. Nose without bleeding or purulent drainage. Moist oral mucosa. NECK: Trachea midline. #6 Tracheostomy midline. Wound to anterior neck - tracheostomy insertion area CARDIOVASCULAR: Regular rate and rhythm without murmurs, gallops, or rubs. No JVD. RESPIRATORY/CHEST: Symmetric, unlabored respirations. rhonchi to auscultation. Breath sounds equal bilaterally. GASTROINTESTINAL: Abdomen soft, non-tender, nondistended. No guarding. Bowel sounds present. Nepro-Goal infusing at 55ml/hr GENITOURINARY: Without palpable bladder distension. Sloan catheter in with clear urine. Scrotal edema. MUSCULOSKELETAL: Gout tophi to fingers, knees, elbows and both ankles. Trace edema to all 4 extremities. NEUROLOGICAL: Tracheostomy on T-bruce 28%. Patient is awake and alert , followed simple commands with all 4 extremities, trying to mouth some words. PSYCHIATRIC: No obvious anxiety/depression. no apparent hallucinations or other psychotic thought process. . Diagnostic Tests Laboratory Laboratory Tests Test 03/27/17 08:06 03/27/17 18:15 03/28/17 07:47 03/28/17 13:08 White Blood Count 21.6 TH/MM3 (4.0-11.0) 21.2 TH/MM3 (4.0-11.0) Red Blood Count 3.47 MIL/MM3 (4.50-5.90) 3.97 MIL/MM3 (4.50-5.90) Hemoglobin 9.9 GM/DL (13.0-17.0) 11.2 GM/DL (13.0-17.0) Hematocrit 31.5 % (39.0-51.0) 35.7 % (39.0-51.0) Mean Corpuscular Volume 90.7 FL (80.0-100.0) 89.9 FL (80.0-100.0) Mean Corpuscular Hemoglobin 28.6 PG (27.0-34.0) 28.2 PG (27.0-34.0) Mean Corpuscular Hemoglobin Concent 31.5 % (32.0-36.0) 31.4 % (32.0-36.0) Red Cell Distribution Width 16.8 % (11.6-17.2) 17.1 % (11.6-17.2) Platelet Count 335 TH/MM3 (150-450) 280 TH/MM3 (150-450) Mean Platelet Volume 9.0 FL (7.0-11.0) 9.1 FL (7.0-11.0) Blood Urea Nitrogen 63 MG/DL (7-18) 62 MG/DL (7-18) 59 MG/DL (7-18) 60 MG/DL (7-18) Creatinine 1.05 MG/DL (0.60-1.30) 0.93 MG/DL (0.60-1.30) 0.97 MG/DL (0.60-1.30) 0.93 MG/DL (0.60-1.30) Random Glucose 115 MG/DL (74-106) 87 MG/DL (74-106) 121 MG/DL (74-106) 198 MG/DL (74-106) Calcium Level 8.1 MG/DL (8.5-10.1) 8.0 MG/DL (8.5-10.1) 7.9 MG/DL (8.5-10.1) 7.8 MG/DL (8.5-10.1) Sodium Level 153 MEQ/L (136-145) 151 MEQ/L (136-145) 154 MEQ/L (136-145) 154 MEQ/L (136-145) Potassium Level 2.7 MEQ/L (3.5-5.1) 3.1 MEQ/L (3.5-5.1) 3.4 MEQ/L (3.5-5.1) 3.8 MEQ/L (3.5-5.1) Chloride Level 113 MEQ/L (98-107) 113 MEQ/L (98-107) 115 MEQ/L (98-107) 114 MEQ/L (98-107) Carbon Dioxide Level 31.5 MEQ/L (21.0-32.0) 29.3 MEQ/L (21.0-32.0) 28.4 MEQ/L (21.0-32.0) 31.2 MEQ/L (21.0-32.0) Anion Gap 9 MEQ/L (5-15) 9 MEQ/L (5-15) 11 MEQ/L (5-15) 9 MEQ/L (5-15) Estimat Glomerular Filtration Rate 72 ML/MIN (>89) 82 ML/MIN (>89) 78 ML/MIN (>89) 82 ML/MIN (>89) Phosphorus Level 2.3 MG/DL (2.5-4.9) Magnesium Level 2.1 MG/DL (1.5-2.5) 2.1 MG/DL (1.5-2.5) Hematology Comments Test 03/28/17 20:15 Blood Urea Nitrogen 57 MG/DL (7-18) Creatinine 0.93 MG/DL (0.60-1.30) Random Glucose 119 MG/DL (74-106) Calcium Level 8.2 MG/DL (8.5-10.1) Sodium Level 155 MEQ/L (136-145) Potassium Level 3.2 MEQ/L (3.5-5.1) Chloride Level 114 MEQ/L (98-107) Carbon Dioxide Level 31.4 MEQ/L (21.0-32.0) Anion Gap 10 MEQ/L (5-15) Estimat Glomerular Filtration Rate 82 ML/MIN (>89) Result Diagram: 03/28/17 0747 03/28/17 2015 Procedures 01/25/2017- Retrievable IVC Filter placement 01/26/17-lumbar puncture with fluoroscopy-by interventional radiology 02/01/17- lumbar puncture fluoroscopy by interventional radiology 02/10/17- Endotracheal Intubation 02/10/17-left IJ central venous line placed 02/10/17-left femoral arterial line placed 02/11/17-Diagnostic and therapeutic bronchoscopy with bronchoalveolar lavage 02/11/17-Left upper extremity incision and debridement with excision of septic cephalic vein 02/13/17- Extubated 02/20/17- endotracheal intubation 02/20/17- Left subclavian central line placement 02/20/17-Right radial A-line placement 02/22/17-EGD/colonoscopy 02/28/17-right radial a line 02/28/17- Endotracheal intubation 02/28/17- right sided introducer catheter placement 02/28/17- Right IJ central line placement 02/28/17-Right chest tube placement 02/28/17- Embolization of inferior and superior sacral branches of right internal iliac artery 03/01/17- Hemodialysis access catheter 03/03/17-Right IJ central line placement 03/11/17-Extubated 03/13/17- Endotracheal intubation 03/14/17-Tracheostomy placement 03/15/17-PEG tube placement . Assessment and Plan Disease Oriented Problem List: (1) Acute respiratory failure (2) Septic shock (3) Aspiration pneumonia (4) Acute renal failure (5) CKD (chronic kidney disease) stage 3, GFR 30-59 ml/min (6) Cardiomyopathy (7) DVT of lower extremity, bilateral (8) Thrombophlebitis arm (9) Diabetes mellitus (10) Gout (11) HTN (hypertension) (12) Hyperlipidemia Symptom Scale: (1) Shortness of breath 0-10 Scale: Unable to quantify Comment: Trach downsized to #6. Currently trached on T piece 28% . (2) Debility 0-10 Scale: Unable to quantify Comment: Progressive. . (3) Pain 0-10 Scale: Unable to quantify Comment: History of falls, gout, arthritis, and currently bedbound. . Pertinent Non-Medical Issues Psychosocial:Patient was born and raised in [place], [place]. Patient was once for 20 years, now and has 2 adult sons. 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 He recently resigned due to failing health. Spiritual: No advent affiliation Legal: Per [place] statutes, in the absence of written advanced directives healthcare proxy decision making falls to the patient's 2 adult children. Patient's son (Davie) lives locally and wishes to participate in the role of the healthcare proxy decision maker. Palliative care has attempted to contact Arnel, has not call back. Patient`s sister Deb and patients brother verbalized that they have been updating Arnel on patient`s medical status. Ethical issues impacting care: No known ethical issues impacting care at this time. . Important Contacts Son-Davie Kerr - Son-Arnel Kerr- -cell -home Sister-Deb Curry . Prognosis Mr Kerr is a 62 years old male with a past medical history of hypertension, asthma, diabetes, hyperlipidemia, chronic kidney disease and gout. Patient presented to the ED on 01/22/17 complaining of bilateral knee and right arm pain after a mechanical fall 4 or 5 days prior to coming to the ER. Clinical course complicated with increased weakness leading to numerous diagnostic work ups for possible transverse myelitis, DVTs, retroperitoneal hematoma, aspiration pneumonia, intubation x 4 times, septic and hemorrhagic shock requiring support with pressors and multiple pRBC, FFP transfusions as well as platelets and cryo , renal failure requiring hemodialysis and sacral wound Given ongoing comorbidities, and prolonged hospitalization, patient remains at risk for further complications, deterioration and decline. Code Status: Full Code Plan PLAN: Legal decision maker: Patient is currently intubated, sedated on a mechanical ventilation and is not able to make any medical decisions for himself at this time. It is unclear if patient will regain capacity to make medical decisions at this time. Patient has 2 adult sons Davie Kerr and Arnel Kerr. According to [place] Statute, his two aforementioned sons will serve as his health care proxys. Patient`s son Davie is acting in the role of HCP decision maker independently at this time given that he is the one who is reasonably available for consultation. Goals: - Remain Aggressive. Per case management note dated 03/28/17 " [facility] denied patient, functionally too low for their facility........". CODE STATUS: Full Code SYMPTOMS: * Shortness of breath: Multifactorial. Patient has had aspiration pneumonia. Patient has been intubated 4 times this hospitalization. Patient has a tracheostomy. Currently on T-Bruce 28%. Patient on duonebs. Patient also on Hydrocortisone 50mg q 6 hours. Information Systems Audit Manager consulted . Trach downsized to a 6. Recommending wound care consult for wound to tracheostomy area. * Pain: Patient presented initially complaining of pain to right wrist and bilateral knees after a mechanical fall. Patient has a history of gout, arthritis, multiple falls and is currently bedbound. Patient on Oxycodone q 4 hours ATC. Patient does not appear to be in pain and currently denies pain by shaking head for "no". Patient also on Hydrocortisone. * Debility: Progressive. Patient has had decline in his health for the past 4 months, including progressively increased weakness and difficulty ambulating and prolonged hospitalization with multiple setbacks. Patient remains at high risk for further physical deconditioning and debility. PT and OT following with patient. PT and OT following. Patient will benefit from getting OOB to a stretcher chair . PT and OT following. Recommending Speech therapy consultation. Palliative care will continue to follow the patient during hospital course as condition evolves, to assist patient/decision-maker with understanding of their medical conditions, weighing benefits/burdens of treatment options, for clarification of goals of treatment. Additionally will assist with any symptoms of palliative concern. . Attestation To help prompt me to consider important information that might be impacting today's encounter and assessment, information from prior notes written by myself or my colleagues may have been "brought forward" into today's note. My signature on this note, however, is an attestation that I personally performed the exam, history, and/or decision-making noted today, and, unless otherwise indicated, the interactions with patient, family, and staff as well as the review of records all occurred today. I also attest that the listed assessment and stated plan reflect my best clinical judgment today based on the combination of historical information, prior notes, and today's exam/ interactions. When time spent is documented, it refers only to time spent today by the signer, or if indicated, combined time spent today by collaborating physician/nurse practitioner. Aftab Cartwright Mar 29, 2017 15:53
[2017-03-29 16:15] LABS: BICARBONATE 29.5 MEQ/L (21.0-32.0)
[2017-03-29] MEDS: ATORVASTATIN 10 MG TAB PO SCH (21:12)
[2017-03-29 23:18] LABS: HEMATOCRIT 35.1 % (39.0-51.0); MEAN CELL VOLUME 90.2 FL (80.0-100.0); MEAN CORPUSCULAR HEMOGLOBIN 28.9 PG (27.0-34.0); PLATELET COUNT 198 TH/MM3 (150-450); RED BLOOD COUNT 3.88 MIL/MM3 (4.50-5.90); REVIEW FLAG FINAL; WHITE BLOOD COUNT 18.5 TH/MM3 (4.0-11.0)
[2017-03-29 23:46] LABS: BICARBONATE 30.8 MEQ/L (21.0-32.0); MAGNESIUM 1.9 MG/DL (1.5-2.5)
[2017-03-30] VITALS (9 sets, daily range): BP systolic 123–168; BP diastolic 70–88; PULSE 79–105; RESP 18–21; TEMP 97.8–99; O2SAT 96–99
[2017-03-30] MEDS: HYDROCORTISONE SOD SUCCINATE 100 MG VIAL IV PUSH SCH ×5 (00:45→23:52)
[2017-03-30] MEDS: INSULIN NovoLIN REGULAR SUPPLEMENTAL SCALE SQ SCH ×4 (02:00→20:00)
[2017-03-30] MEDS: oxyCODONE HCL ORAL CONC 5 MG/0.25 ML SYRINGE PO SCH ×6 (02:26→22:23)
[2017-03-30] MEDS: RESP: ALBUTEROL 2.5 MG/IPRATROPIUM 0.5 MG NEB (SCH) NEB ×4 (02:45→22:41)
[2017-03-30] MEDS: DEXTROSE 5% IN WATE 1000ML INJ 1,000 ML IV SCH ×2 (06:00→14:39)
[2017-03-30] MEDS: CHLORHEXIDINE 0.12% (ORAL KIT) 15 ML CUP MT SCH ×2 (07:23→20:00)
[2017-03-30] MEDS: SODIUM CHLORIDE 0.9% FLUSH 10 ML FLUSH IV FLUSH SCH ×3 (07:24→22:24)
[2017-03-30] MEDS: INSULIN DETEMIR 100 UNITS/ML VIAL SQ SCH ×2 (09:00→23:53)
[2017-03-30] MEDS: LACTOBACILLUS ACIDOPHILUS TAB PO SCH ×3 (09:32→17:16)
[2017-03-30] MEDS: ATENOLOL 25 MG TAB PO SCH ×2 (09:32→22:23)
[2017-03-30] MEDS: LANSOPRAZOLE SOLUTAB 30 MG TAB NG SCH ×2 (09:32→22:22)
[2017-03-30 10:09] LABS: BICARBONATE 28.6 MEQ/L (21.0-32.0); POTASSIUM 5.5 MEQ/L (3.5-5.1)
--- NOTE | 2017-03-30 11:25 | HHI.HCPN ---
Reason for visit a. To assist with evaluation and management of symptoms including: shortness of breath, pain, debility b. To assist medical decision maker(s) with: better understanding of current medical conditions; weighing benefits/burdens of medical treatment options; making medical treatment decisions. Subjective/Interval History Mr Kerr is a 62 years old male with a past medical history of hypertension, asthma, diabetes, hyperlipidemia, chronic kidney disease and gout. Patient presented to the ED on 01/22/17 complaining of bilateral knee and right arm pain after a mechanical fall 4 or 5 days prior to coming to the ER. Patient has been experiencing progressive weakness of bilateral lower extremities as well as bilateral upper extremities prior to ER visit. Patient seen in his room, asleep but easily arousable. Alert and moves all extremities to simple command. Patient communicated by nodding or shaking head and sometimes speaks arounds tracheostomy. Responds appropriately to simple questions. Patient`s sister Deb and patient`s father, and his stepmother at bedside visiting with patient. Remains afebrile. SBP 130s-160s. O2 saturation high 90s on 28%. Updated on medical status. Laboratory workup today revealing WBC 18.5, Hgb 11.2, Hct 35.1, Plt count 198, sodium 147, potassium 5.5, BUN/ Creat 56/1.03, random glucose 201. Case discussed with bedside RN Leny and Case Management Cindy Sheikh. . Family/friend interactions Patient`s sister, father and stepmother at bedside during visit. . Advance Directives Living Will: Never completed Health Care Surrogate: Never completed Durable Power of Donor Floor Technician: Never completed Advance Directive Specifics Documented care wishes: No known documented care wishes have been completed. . Objective Vital Signs Date Time Temp Pulse Resp B/P (MAP) Pulse Ox O2 Delivery O2 Flow Rate FiO2 03/30/17 10:46 79 03/30/17 09:44 98 T-Piece 5.00 28 03/30/17 08:51 98.8 89 20 138/79 (98) 97 03/30/17 07:41 98 T-piece 6.00 28 03/30/17 05:30 98.5 80 18 168/78 (108) 98 03/30/17 00:30 98.8 89 20 140/76 (97) 96 03/29/17 22:10 96 T-Piece 28 03/29/17 20:45 97.9 85 19 138/80 (99) 98 03/29/17 20:20 98 T-piece 6.00 28 03/29/17 18:00 81 03/29/17 17:40 97.8 87 18 122/59 (80) 97 03/29/17 13:08 98.7 89 17 144/74 (97) 94 03/29/17 13:00 85 Intake & Output 03/30/17 03/30/17 07:00 19:00 Intake Total 0 ml Output Total 600 ml 1000 ml Balance -600 ml -1000 ml Intake Oral 0 ml Output Urine Total 600 ml 1000 ml Stool Total 0 ml Physical Exam CONSTITUTIONAL/GENERAL: This is an adequately nourished patient, trached on T piece, 28% TUBES/LINES/DRAINS: PEG tube, #6Tracheostomy, PIVs, FC SKIN: No jaundice. Ecchymoses on upper extremities. Sacral pressure wound and L heel pressure injury. Wound to anterior neck - tracheostomy insertion area. Afebrile. Not diaphoretic. HEAD: Atraumatic. Normocephalic. EYES: Pupils equal and round, slight reaction.No scleral icterus. No injection or drainage. Fundi not examined. ENT: Trached. Nose without bleeding or purulent drainage. Moist oral mucosa. NECK: Trachea midline. #6 Tracheostomy midline. Wound to anterior neck - tracheostomy insertion area CARDIOVASCULAR: Regular rate and rhythm without murmurs, gallops, or rubs. No JVD. RESPIRATORY/CHEST: Symmetric, unlabored respirations. rhonchi to auscultation. Breath sounds equal bilaterally. Tracheostomy on T-bruce 28%saturating in the high 90s. GASTROINTESTINAL: Abdomen soft, non-tender, nondistended. No guarding. Bowel sounds present. Nepro-Goal infusing at 55ml/hr GENITOURINARY: Without palpable bladder distension. Sloan catheter in with clear urine. Scrotal edema. MUSCULOSKELETAL: Gout tophi to fingers, knees, elbows and both ankles. Trace edema to all 4 extremities. NEUROLOGICAL: Trached, occasionally speaks around tracheostomy. Patient is sleeping and easily arousable, alert ,followed simple commands with all 4 extremities. PSYCHIATRIC: No obvious anxiety/depression. no apparent hallucinations or other psychotic thought process. . Diagnostic Tests Laboratory Laboratory Tests Test 03/27/17 18:15 03/28/17 07:47 03/28/17 13:08 03/28/17 20:15 Blood Urea Nitrogen 62 MG/DL (7-18) 59 MG/DL (7-18) 60 MG/DL (7-18) 57 MG/DL (7-18) Creatinine 0.93 MG/DL (0.60-1.30) 0.97 MG/DL (0.60-1.30) 0.93 MG/DL (0.60-1.30) 0.93 MG/DL (0.60-1.30) Random Glucose 87 MG/DL (74-106) 121 MG/DL (74-106) 198 MG/DL (74-106) 119 MG/DL (74-106) Calcium Level 8.0 MG/DL (8.5-10.1) 7.9 MG/DL (8.5-10.1) 7.8 MG/DL (8.5-10.1) 8.2 MG/DL (8.5-10.1) Sodium Level 151 MEQ/L (136-145) 154 MEQ/L (136-145) 154 MEQ/L (136-145) 155 MEQ/L (136-145) Potassium Level 3.1 MEQ/L (3.5-5.1) 3.4 MEQ/L (3.5-5.1) 3.8 MEQ/L (3.5-5.1) 3.2 MEQ/L (3.5-5.1) Chloride Level 113 MEQ/L (98-107) 115 MEQ/L (98-107) 114 MEQ/L (98-107) 114 MEQ/L (98-107) Carbon Dioxide Level 29.3 MEQ/L (21.0-32.0) 28.4 MEQ/L (21.0-32.0) 31.2 MEQ/L (21.0-32.0) 31.4 MEQ/L (21.0-32.0) Anion Gap 9 MEQ/L (5-15) 11 MEQ/L (5-15) 9 MEQ/L (5-15) 10 MEQ/L (5-15) Estimat Glomerular Filtration Rate 82 ML/MIN (>89) 78 ML/MIN (>89) 82 ML/MIN (>89) 82 ML/MIN (>89) White Blood Count 21.2 TH/MM3 (4.0-11.0) Red Blood Count 3.97 MIL/MM3 (4.50-5.90) Hemoglobin 11.2 GM/DL (13.0-17.0) Hematocrit 35.7 % (39.0-51.0) Mean Corpuscular Volume 89.9 FL (80.0-100.0) Mean Corpuscular Hemoglobin 28.2 PG (27.0-34.0) Mean Corpuscular Hemoglobin Concent 31.4 % (32.0-36.0) Red Cell Distribution Width 17.1 % (11.6-17.2) Platelet Count 280 TH/MM3 (150-450) Mean Platelet Volume 9.1 FL (7.0-11.0) Hematology Comments Magnesium Level 2.1 MG/DL (1.5-2.5) Test 03/29/17 15:28 03/29/17 22:51 03/30/17 09:27 Blood Urea Nitrogen 56 MG/DL (7-18) 57 MG/DL (7-18) 56 MG/DL (7-18) Creatinine 0.97 MG/DL (0.60-1.30) 0.99 MG/DL (0.60-1.30) 1.03 MG/DL (0.60-1.30) Random Glucose 140 MG/DL (74-106) 167 MG/DL (74-106) 201 MG/DL (74-106) Calcium Level 7.9 MG/DL (8.5-10.1) 7.7 MG/DL (8.5-10.1) 7.5 MG/DL (8.5-10.1) Magnesium Level 2.0 MG/DL (1.5-2.5) 1.9 MG/DL (1.5-2.5) Sodium Level 150 MEQ/L (136-145) 150 MEQ/L (136-145) 147 MEQ/L (136-145) Potassium Level 5.0 MEQ/L (3.5-5.1) 4.0 MEQ/L (3.5-5.1) 5.5 MEQ/L (3.5-5.1) Chloride Level 113 MEQ/L (98-107) 110 MEQ/L (98-107) 110 MEQ/L (98-107) Carbon Dioxide Level 29.5 MEQ/L (21.0-32.0) 30.8 MEQ/L (21.0-32.0) 28.6 MEQ/L (21.0-32.0) Anion Gap 8 MEQ/L (5-15) 9 MEQ/L (5-15) 8 MEQ/L (5-15) Estimat Glomerular Filtration Rate 78 ML/MIN (>89) 77 ML/MIN (>89) 73 ML/MIN (>89) White Blood Count 18.5 TH/MM3 (4.0-11.0) Red Blood Count 3.88 MIL/MM3 (4.50-5.90) Hemoglobin 11.2 GM/DL (13.0-17.0) Hematocrit 35.1 % (39.0-51.0) Mean Corpuscular Volume 90.2 FL (80.0-100.0) Mean Corpuscular Hemoglobin 28.9 PG (27.0-34.0) Mean Corpuscular Hemoglobin Concent 32.0 % (32.0-36.0) Red Cell Distribution Width 17.0 % (11.6-17.2) Platelet Count 198 TH/MM3 (150-450) Mean Platelet Volume 9.5 FL (7.0-11.0) Hematology Comments Result Diagram: 03/29/17 2251 03/30/17 0927 Procedures 01/25/2017- Retrievable IVC Filter placement 01/26/17-lumbar puncture with fluoroscopy-by interventional radiology 02/01/17- lumbar puncture fluoroscopy by interventional radiology 02/10/17- Endotracheal Intubation 02/10/17-left IJ central venous line placed 02/10/17-left femoral arterial line placed 02/11/17-Diagnostic and therapeutic bronchoscopy with bronchoalveolar lavage 02/11/17-Left upper extremity incision and debridement with excision of septic cephalic vein 02/13/17- Extubated 02/20/17- endotracheal intubation 02/20/17- Left subclavian central line placement 02/20/17-Right radial A-line placement 02/22/17-EGD/colonoscopy 02/28/17-right radial a line 02/28/17- Endotracheal intubation 02/28/17- right sided introducer catheter placement 02/28/17- Right IJ central line placement 02/28/17-Right chest tube placement 02/28/17- Embolization of inferior and superior sacral branches of right internal iliac artery 03/01/17- Hemodialysis access catheter 03/03/17-Right IJ central line placement 03/11/17-Extubated 03/13/17- Endotracheal intubation 03/14/17-Tracheostomy placement 03/15/17-PEG tube placement . Assessment and Plan Disease Oriented Problem List: (1) Acute respiratory failure (2) Septic shock (3) Aspiration pneumonia (4) Acute renal failure (5) CKD (chronic kidney disease) stage 3, GFR 30-59 ml/min (6) Cardiomyopathy (7) DVT of lower extremity, bilateral (8) Thrombophlebitis arm (9) Diabetes mellitus (10) Gout (11) HTN (hypertension) (12) Hyperlipidemia Symptom Scale: (1) Shortness of breath 0-10 Scale: Unable to quantify Comment: Trach downsized to #6. Currently trached on T piece 28% . (2) Debility 0-10 Scale: Unable to quantify Comment: Progressive. . (3) Pain 0-10 Scale: Unable to quantify Comment: History of falls, gout, arthritis, and currently bedbound. . Pertinent Non-Medical Issues Psychosocial:Patient was born and raised in [place], [place]. Patient was once for 20 years, now and has 2 adult sons. 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 He recently resigned due to failing health. Spiritual: No adventist affiliation Legal: Per [place] statutes, in the absence of written advanced directives healthcare proxy decision making falls to the patient's 2 adult children. Patient's son (Davie) lives locally and wishes to participate in the role of the healthcare proxy decision maker. Palliative care has attempted to contact Arnel, has not call back. Patient`s sister Deb and patients brother verbalized that they have been updating Arnel on patient`s medical status. Ethical issues impacting care: No known ethical issues impacting care at this time. . Important Contacts Son-Davie Kerr - Son-Arnel Kerr- -cell -home Sister-Deb Patricio . Prognosis Mr Kerr is a 62 years old male with a past medical history of hypertension, asthma, diabetes, hyperlipidemia, chronic kidney disease and gout. Patient presented to the ED on 01/22/17 complaining of bilateral knee and right arm pain after a mechanical fall 4 or 5 days prior to coming to the ER. Clinical course complicated with increased weakness leading to numerous diagnostic work ups for possible transverse myelitis, DVTs, retroperitoneal hematoma, aspiration pneumonia, intubation x 4 times, septic and hemorrhagic shock requiring support with pressors and multiple pRBC, FFP transfusions as well as platelets and cryo , renal failure requiring hemodialysis and sacral wound Given ongoing comorbidities, and prolonged hospitalization, patient remains at risk for further complications, deterioration and decline. Code Status: Full Code Plan PLAN: Legal decision maker: Patient is currently intubated, sedated on a mechanical ventilation and is not able to make any medical decisions for himself at this time. It is unclear if patient will regain capacity to make medical decisions at this time. Patient has 2 adult sons Davie Kerr and Arnel Kerr. According to [place] Statute, his two aforementioned sons will serve as his health care proxys. Patient`s son Davie is acting in the role of HCP decision maker independently at this time given that he is the one who is reasonably available for consultation. Goals: 03/30/17- Remain Aggressive. Patient was denied by luis. Discussed with patient`s sister that most likely patient will require long-term care facility depending on how he does during hospitalization, considering that patient remains at risk for a decline. Notified her that OT, and PT has been working with patient and getting OOB. CODE STATUS: Full Code SYMPTOMS: * Shortness of breath: Multifactorial. Patient has had aspiration pneumonia. Patient has been intubated 4 times this hospitalization. Patient has a tracheostomy. Currently on T-Bruce 28%. Patient on duonebs. Patient also on Hydrocortisone 50mg q 6 hours. Operations Specialists consulted . Trach downsized to a 6. Wound care consult for wound to tracheostomy area consulted today. * Pain: Patient presented initially complaining of pain to right wrist and bilateral knees after a mechanical fall. Patient has a history of gout, arthritis, multiple falls and is currently bedbound. Patient on Oxycodone q 4 hours ATC. Patient does not appear to be in pain and currently denies pain by shaking head for "no". Patient also on Hydrocortisone. * Debility: Progressive. Patient has had decline in his health for the past 4 months, including progressively increased weakness and difficulty ambulating and prolonged hospitalization with multiple setbacks. Patient remains at high risk for further physical deconditioning and debility. PT and OT following with patient. PT and OT following. Patient will benefit from getting OOB to a stretcher chair . PT and OT following. Recommending Speech therapy consultation. Palliative care will continue to follow the patient during hospital course as condition evolves, to assist patient/decision-maker with understanding of their medical conditions, weighing benefits/burdens of treatment options, for clarification of goals of treatment. Additionally will assist with any symptoms of palliative concern. . Aftab Cartwright Mar 30, 2017 11:25
[2017-03-30 12:05] LABS: HEMATOCRIT 30.7 % (39.0-51.0); MEAN CELL VOLUME 91.3 FL (80.0-100.0); MEAN CORPUSCULAR HEMOGLOBIN 29.1 PG (27.0-34.0); MEAN CORPUSCULAR HGB CONC 31.9 % (32.0-36.0); PLATELET COUNT 179 TH/MM3 (150-450); RED BLOOD COUNT 3.36 MIL/MM3 (4.50-5.90); RED CELL DISTRIBUTION WIDTH 17.2 % (11.6-17.2); REVIEW FLAG FINAL; WHITE BLOOD COUNT 16.1 TH/MM3 (4.0-11.0)
--- NOTE | 2017-03-30 12:30 | HHI.PR ---
Subjective Remarks The patient was resting in bed comfortably. He indicated that he was depressed. He had no acute concerns. Discussed with nursing. Objective Vitals Vital Signs Date Time Temp Pulse Resp B/P (MAP) Pulse Ox O2 Delivery O2 Flow Rate FiO2 03/30/17 10:46 79 03/30/17 09:44 98 T-Piece 5.00 28 03/30/17 08:51 98.8 89 20 138/79 (98) 97 03/30/17 07:41 98 T-piece 6.00 28 03/30/17 05:30 98.5 80 18 168/78 (108) 98 03/30/17 00:30 98.8 89 20 140/76 (97) 96 03/29/17 22:10 96 T-Piece 28 03/29/17 20:45 97.9 85 19 138/80 (99) 98 03/29/17 20:20 98 T-piece 6.00 28 03/29/17 18:00 81 03/29/17 17:40 97.8 87 18 122/59 (80) 97 03/29/17 13:08 98.7 89 17 144/74 (97) 94 03/29/17 13:00 85 I/O 03/29/17 03/29/17 03/29/17 03/30/17 03/30/17 03/30/17 07:00 15:00 23:00 07:00 15:00 23:00 Intake Total 0 ml 0 ml Output Total 2000 ml 200 ml 400 ml 1000 ml Balance -2000 ml -200 ml -400 ml -1000 ml Intake Oral 0 ml 0 ml Output Urine Total 2000 ml 200 ml 400 ml 1000 ml Stool Total 0 ml 0 ml Result Diagram: 03/30/17 1116 03/30/17 0927 Imaging Last Impressions Wrist X-Ray 03/27/17 0000 Signed Impressions: Service Date/Time: Monday, March 27, 2017 13:21 - CONCLUSION: 1. No acute fracture is identified. A portion of the previously documented distal ulna fracture remains visualized. 2. 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 Angelo Allen MD Chest X-Ray 03/14/17 0000 Signed Impressions: Service Date/Time: Tuesday, March 14, 2017 13:41 - CONCLUSION: 1. Tracheostomy in good position. 2. Left lower lung infiltrates and left pleural effusion. Candido Patton MD Aortography 02/28/17 0000 Signed Impressions: Service Date/Time: Tuesday, February 28, 2017 08:01 - CONCLUSION: 1. Active hemorrhage from distal right lateral sacral and iliolumbar branches successfully coil and Gelfoam embolized, as above. Juan Bhakta MD Abdomen/Pelvis CT 02/28/17 0000 Signed Impressions: Service Date/Time: Tuesday, February 28, 2017 06:51 - CONCLUSION: 1. The right retroperitoneal hematoma has increased in size, as above. There are 2 serpiginous arterially enhancing structures visualized, one in the right psoas muscle and another extending into the hematoma at the right iliac fossa. These could represent sites of continued active bleeding. 2. Stable moderate size left and small right pleural effusion with associated compressive atelectasis. 3. Stable small volume of free fluid in the abdomen and pelvis. There is also anasarca. The findings concerning the retroperitoneal hematoma were discussed with Dr. Aguiar via telephone at approximately 7: 10 AM on 02/28/2017. Angelo Allen MD Chest CT 02/27/17 0000 Signed Impressions: Service Date/Time: Monday, February 27, 2017 18:12 - CONCLUSION: 1. Bilateral pleural effusions with bibasilar atelectasis, left greater than right. Tom Sanchez MD Abdomen X-Ray 02/26/17 Signed Impressions: Service Date/Time: Sunday, February 26, 2017 14:52 - CONCLUSION: 1. Nonobstructive bowel gas pattern. Juan Bhakta MD Upper Extremity Ultrasound 02/10/17 0000 Signed Impressions: Service Date/Time: Friday, February 10, 2017 18:46 - CONCLUSION: Occlusive thrombus in the cephalic and basilic veins. Benjamin Person MD Lung Scan- Nuclear Medicine 02/10/17 0000 Signed Impressions: Service Date/Time: Friday, February 10, 2017 22:17 - CONCLUSION: Low probability pulmonary embolism. Candido Patton MD Head CT 02/10/17 0000 Signed Impressions: Service Date/Time: Friday, February 10, 2017 23:51 - CONCLUSION: Negative noncontrast CT brain. Candido Patton MD Lumbar Puncture Fluoroscopy 02/01/17 Signed Impressions: Service Date/Time: January 09:35 - CONCLUSION: Uncomplicated fluoroscopically guided lumbar puncture. CSF was clear. Nabeel Peralta MD Head Magnetic Resonance Angiography 01/27/17 Signed Impressions: Service Date/Time: Friday, January 27, 2017 10:33 - CONCLUSION: No intracranial vascular abnormality is identified. There is no aneurysm visualized. Angelo Allen MD IVC Filter Placement X-Ray 01/25/17 Signed Impressions: Service Date/Time: January 10:29 - CONCLUSION: Uncomplicated inferior vena cava filter placement as above. Yung Fowler MD Thoracic Spine MRI 01/24/17 Signed Impressions: Service Date/Time: Tuesday, January 24, 2017 22:29 - CONCLUSION: 1. Mild degenerative spondylosis most prominently at T11-L1 with slight effacement of the anterior thecal sac and left lateral recess. No significant neural foraminal stenosis. 2. No acute fracture. Juan Bhakta MD Renal Ultrasound 01/23/17 Signed Impressions: Service Date/Time: Monday, January 23, 2017 08:53 - CONCLUSION: 1. Evidence of chronic parenchymal disease of both kidneys. No obstructive uropathy or other acute abnormality demonstrated. 2. Trace ascites, nonspecific. Angelo Garrido MD Lumbar Spine MRI 01/23/17 Signed Impressions: Service Date/Time: Monday, January 23, 2017 17:01 - CONCLUSION: 1. At L4-5 is a broad-based disc protrusion with severe central canal and lateral recess stenosis and flattening of the exiting right L4 nerve root. 2. L5-S1 there is a disc protrusion and moderate stenosis with flattening of the exiting L5 nerve roots bilaterally. 3. At L3-4 there is a moderate to severe central stenosis and lateral recess stenosis with mild foraminal stenosis. 4. No acute fracture or spondylolisthesis. Trace Holloway MD Lower Extremity Ultrasound 01/23/17 Signed Impressions: Service Date/Time: Monday, January 23, 2017 09:53 - CONCLUSION: Bilateral focal lower extremity DVT involving the posterior tibial veins. Agnelo Garrido MD Cervical Spine MRI 01/23/17 0000 Signed Impressions: Service Date/Time: Monday, January 23, 2017 17:01 - CONCLUSION: 1. Multilevel cervical spine degenerative changes as above. 2. Mild degrees of spinal stenosis at C3/C4-C6/C7. No cord compression or cord signal abnormality. 3. Age indeterminate left paracentral/foraminal disc protrusion at C6/C7. 4. Multilevel foraminal stenosis, most severe on the left at C6/C7. Please see individual levels above. 5. No fracture or subluxation of the cervical spine. Angelo Garrido MD Brain MRI 01/23/17 0000 Signed Impressions: Service Date/Time: Monday, January 23, 2017 17:01 - CONCLUSION: 1. No acute stroke or other acute intracranial abnormality demonstrated. 2. Moderate severity chronic white matter changes, nonspecific but most likely related to chronic small vessel disease. 3. Few scattered tiny lacunar infarcts of the brainstem. 4. Given the findings are not entirely specific, clinical evaluation for possible multiple sclerosis recommended. Angelo Garrido MD Knee X-Ray [id number]/22/[id number] Signed Impressions: Service Date/Time: Sunday, January 22, 2017 21:17 - CONCLUSION: 1. Evidence of moderate to large joint effusion. 2. No acute fracture or malalignment. 3. Mild 3 compartment osteoarthritic change. Benjamin Person MD Hip and Pelvis X-Ray [id number]/22/[id number] Signed Impressions: Service Date/Time: Sunday, January 22, 2017 21:10 - CONCLUSION: 1. Mild to moderate degenerative change of both hips with no acute fracture or malalignment. There is flattening and remodeling of the right humeral head. Benjamin Person MD Objective Remarks GENERAL: Resting in bed, in no apparent distress. HEENT: Normocephalic. Atraumatic. Pupils equal, round, reactive. NECK: Tracheostomy in place. CHEST: on T piece via tracheostomy, air entry decreased bilaterally at bases. CARDIOVASCULAR: S1-S2 regular, no gallop or murmur. ABDOMEN distended. No rigidity. Umbilical hernia is reducible. No guarding. PEG tube in place. : Positive scrotal edema Sloan in place. MUSCULOSKELETAL: Pulses 2+. 1+ bilateral upper and lower extremity edema. Clean white Bandage/discontinued wound VAC on left upper extremity. NEUROLOGICAL: Awake and alert, has spontaneous eye opening. Opens and closes eyes on command, on T piece via tracheostomy. Moves 4 limbs weakly to stimulation. PSYCH: Flattened affect. Procedures IVC filter placement 01/25/2017 LP 01/26/2017 Medications and IVs Current Medications Medications (Trade) Dose Ordered Sig/Rosalia Route Start Time Stop Time Status Last Admin (NS Flush) 2 ml UNSCH PRN IV FLUSH 01/23/17 00:30 03/29/17 05:59 (NS Flush) 2 ml BID IV FLUSH 01/23/17 09:00 03/29/17 09:34 (Zofran Inj) 4 mg Q6H PRN IVP 01/23/17 00:30 02/26/17 17:23 (Narcan Inj) 0.4 mg UNSCH PRN IV 01/23/17 00:30 (Edna-Colace) 1 tab BID PO 01/23/17 09:00 Future Hold 02/24/17 20:31 (Dulcolax Supp) 10 mg DAILY PRN RECTAL 01/23/17 00:30 (Lipitor) 10 mg HS PO 01/24/17 21:00 Future hold 03/29/17 21:12 (Glucagon Inj) 1 mg UNSCH PRN OTHER 02/11/17 05:45 02/18/17 18:53 (Flomax) 0.4 mg Q12HR PO 02/17/17 15:00 Future Hold 02/26/17 08:49 (Lovenox Inj) 100 mg Q12H SQ 02/18/17 12:00 Future Hold 02/26/17 16:20 (Lactinex) 1 tab TID PO 02/19/17 13:00 03/30/17 12:01 (Apresoline Inj) 10 mg Q30M PRN IV PUSH 02/20/17 11:45 03/26/17 12:18 (D50w (Vial) Inj) 25 ml UNSCH PRN IV PUSH 02/20/17 12:45 03/27/17 13:20 (Questran Light Pkt) 4 gm Q12HR PO 02/25/17 21:00 Future Hold 02/27/17 10:32 (Aldactone) 25 mg DAILY PO 02/27/17 09:00 Future Hold (Peridex 0.12% Liq) 15 ml BID@08,20 MT 02/28/17 08:00 03/27/17 08:00 (Albuterol Neb) 2.5 mg Q2HR NEB PRN NEB 02/28/17 07:45 03/21/17 19:21 (NS Flush) UNSCH PRN IV FLUSH 03/01/17 13:00 (Heparin Inj) UNSCH PRN IV FLUSH 03/01/17 13:00 (NS Flush) DAILY IV FLUSH 03/04/17 09:00 03/26/17 09:00 (NS Flush) UNSCH PRN IV FLUSH 03/03/17 18:45 (Roxicodone Intensol Liq) 10 mg Q4H PO 03/05/17 14:00 03/30/17 09:33 (Prevacid Odt) 30 mg BID NG 03/07/17 21:00 03/30/17 09:32 (Tylenol 650 Mg/ 20 ml Liq) 650 mg Q6H PRN PO 03/09/17 10:15 03/14/17 05:24 (Trandate Inj) 20 mg Q4H PRN IV 03/12/17 04:30 03/17/17 12:25 (Tenormin) 25 mg Q12HR PO 03/12/17 10:00 03/30/17 09:32 (Epogen Inj) 10,000 units UNSCH PRN IV PUSH 03/17/17 11:30 03/22/17 10:52 (Nitroglycerin 2% Oint) 2 inch Q6H PRN TOPICAL 03/23/17 14:00 03/29/17 01:20 (NovoLIN R SUPPLEMENTAL SCALE) 1 Q6H SQ 03/26/17 14:00 03/30/17 08:00 (Lasix Inj) 20 mg DAILY IV PUSH 03/27/17 09:00 Future Hold 03/29/17 09:34 (Duoneb Neb) 1 ampule Q6HR NEB NEB 03/27/17 16:00 03/30/17 07:41 (Levemir Inj) 10 units BID SQ 03/27/17 21:00 03/30/17 09:00 (Norvasc) 10 mg DAILY PO 03/28/17 09:00 03/30/17 09:32 (SoluCORTEF INJ) 25 mg Q6HR IV PUSH 03/28/17 12:00 03/30/17 12:01 Dextrose 1,000 ml @ 100 mls/hr Q10H IV 03/29/17 10:00 03/29/17 21:10 Date of Insertion: Mar 03, 2017 Line: Central Venous Catheter Side: Right Location: Internal, Jugular A/P Problem List: (1) Transverse myelitis ICD Code: G37.3 - Acute transverse myelitis in demyelinating disease of central nervous system Status: Acute (2) Septic shock ICD Code: A41.9 - Sepsis, unspecified organism; R65.21 - Severe sepsis with septic shock Status: Resolved (3) HCAP (healthcare-associated pneumonia) ICD Code: J18.9 - Pneumonia, unspecified organism (4) Acute respiratory failure with hypoxia and hypercarbia ICD Code: J96.01 - Acute respiratory failure with hypoxia; J96.02 - Acute respiratory failure with hypercapnia Status: Resolved (5) Hyperlipidemia ICD Code: E78.5 - Hyperlipidemia, unspecified Status: Chronic (6) HTN (hypertension) ICD Code: I10 - Essential (primary) hypertension (7) DVT of lower extremity, bilateral ICD Code: I82.403 - Acute embolism and thrombosis of unspecified deep veins of lower extremity, bilateral (8) Diabetes mellitus with hyperglycemia ICD Code: E11.65 - Type 2 diabetes mellitus with hyperglycemia (9) Hypocalcemia ICD Code: E83.51 - Hypocalcemia (10) Hypernatremia ICD Code: E87.0 - Hyperosmolality and hypernatremia (11) Hypokalemia ICD Code: E87.6 - Hypokalemia (12) Acute metabolic encephalopathy ICD Code: G93.41 - Metabolic encephalopathy (13) Quadriparesis ICD Code: G82.50 - Quadriplegia, unspecified Status: Acute (14) BREEZY (acute kidney injury) ICD Code: N17.9 - Acute kidney failure, unspecified (15) Diarrhea ICD Code: R19.7 - Diarrhea, unspecified (16) Abdominal pain ICD Code: R10.9 - Unspecified abdominal pain (17) Hypoglycemia ICD Code: E16.2 - Hypoglycemia, unspecified (18) Urinary retention ICD Code: R33.9 - Retention of urine, unspecified (19) Acute hypoxemic respiratory failure ICD Code: J96.01 - Acute respiratory failure with hypoxia () Sepsis ICD Code: A41.9 - Sepsis, unspecified organism Assessment and Plan Acute metabolic encephalopathy- persistent Quadriparesis secondary to suspected transverse myelitis Recurrent falls Pain secondary to retroperitoneal hematoma. Suspected transverse myelitis. Received methylprednisolone 250 mg IV every 6 hours 01/27-02/02, started back on hydrocortisone 02/21/17, initially tapering to 50 mg IV every 8 hours starting received 1 dose at 2100 prior to becoming hypotensive. weaning hydrocortisone taper and stopped 03/09. Resumed hydrocortisone 50mg IV Q6hrly on 03/14 as patient became hypotensive following intubation on 03/13 requiring levophed. LP 01/26 and 02/01. CSF culture negative 01/26, 02/01 Oligoclonal bands negative. CSF/serum IgG index is not elevated. VDRL nonreactive. Cryptococcal antigen negative. Brain MRI 01/23 no acute stroke. Few scattered lacunar infarcts of the brainstem. Moderate chronic white matter changes. MRI cervical/thoracic spine- mild spinal stenosis C3/C4 to C6/C7. No cord compression. RPR negative. Neurology has been following, Dr. Crenshaw. Repeat CT brain 02/10 - negative. - Continue PT/OT. - Continue pain control with a bowel regimen. Acute hypoxemic respiratory failure Healthcare associated pneumonia/Aspiration Pneumonia Right-sided chest tube placed for pleural effusion. VQ scan 02/10 low probability for PE. CT chest 02/10 - left lower lobe collapse and consolidation. CT chest 02/27 revealed right greater than left pleural effusions. Extubated 02/23. Intubated 02/28. Extubated 03/11, Reintubated on . 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 Failed attempt to wean successfully due to volume overload and multiple organ failure. underwent perc tracheostomy 03/14. - pulmonology following for trach care, possible downsizing. Consult appreciated. - Albuterol/ipratropium aerosols every 6 hours with albuterol aerosols every 2 hours prn. Severe sepsis - resolved. Systolic heart failure likely chronic with ejection fraction 20-25% Hyperlipidemia History of hypertension Mild TR Sinus tachycardia Elevated troponin likely type II demand ischemia Restarted on Levophed on 03/09 following intubation, titrated off after starting hydrocortisone. Started hydrocortisone stress dose on 03/14 (as patient has been on steroids and was just tapered off on 03/09.) Patient had been hypotensive twice when attempting to wean off stress dose hydrocortisone in the past. EKG with nonspecific ST-T changes. 2-D echocardiogram 01/11 revealed EF 20-25%. Mild TR. Pulmonary arterial pressures were normal around 20. Troponin 6.55 on 03/02. - Likely will need stress test of heart once stable. Cannot anticoagulate due to retroperitoneal hematoma at the present time. - Currently on atenolol 25 mg twice a day. Continue amlodipine, increased to 10 mg daily. - As needed Nitropaste, labetalol and hydralazine for hypertension. - Atorvastatin 10 mg by mouth daily for dyslipidemia. - Lasix on hold. Large right retroperitoneal hematoma Erosive esophagitis Adematous/hyperplastic colon polyps Severe acute protein calorie malnutrition Nausea/vomiting - resolved. Diarrhea Gastritis Diverticulosis Internal and external hemorrhoids Hiatal hernia Elevated lipase 02/27 CT chest/abdomen and pelvis - 9.4 x 7.5 renal and 16 x 12 cm right psoas muscle hematoma. Fluid around liver and spleen. Right-sided nephrolithiasis. CTA abdomen 02/28 - possible blushing around iliac/lumbar vessels. Discussed with IR. s/p attempted embolization. CT abdomen and pelvis 02/10 atrophic left kidney. Bilateral inguinal hernias fat-containing. Nonobstructing 12 mm right kidney stone. Repeat CT abd/pelvis did not show evidence of obstruction. EGD/ Colonoscopy-02/22/17 showed gastritis esophagitis, hiatal hernia, diverticulosis and multiple polyps in descending colon and sigmoid which were snared biopsied. Biopsy pending. Dr. Lewis consulted for intervention if needed for elevated IAP. will continue to check as needed. Status post PEG tube placement by . - Lansoprazole 30 mg twice a day for GI prophylaxis. - Discontinued metoclopramide 5 milligrams IV every 8 hours today. - Dietary consult placed for appropriate tube feeding. Acute kidney injury in the setting of Chronic kidney disease stage 3-4 History of uric acid kidney stones with prior stent BPH Nonfunctioning left kidney Acute intravascular volume overload Hypokalemia/ Hyperkalemia Sloan placed due to urinary retention and worsening creatinine Maintain Sloan secondary to urinary retention Monitor intake and output q1hr. Monitor electrolytes. RIOS/SPEP negative. 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 Recommended nephrostomy tube if obstruction. Nephrology consulted, hemodialysis per nephrology. Making urine. Due to acute illness holding tamsulosin 0.4 mg by mouth daily for BPH. - Potassium repleted. Level is currently elevated. Will recheck labs in the afternoon and dose Kayexalate if needed. Septic shock- resolved. Abscess and Suppurative thrombophlebitis left upper extremity MSSA bacteremia Klebsiella UTI ESBL positive Acute aspiration pneumonia/HCAP Previously treated with Bactrim, ertapenem, intermittent vancomycin, nafcillin. Blood cultures 2, UA ESBL positive Klebsiella UTI. Sputum 03/14 - Pseudomonas came back resistant to imipenem. Repeat blood cultures 2 and sputum 03/08 pending. Urine negative. - Switched from meropenem to ceftazidime on 03/19, vancomycin IV 1 dose given on 03/19 and 03/22. Follow up with ID. Acute blood loss anemia DVT, bilateral posterior tibial vein, IVC filter Septic thrombophlebitis with occlusive thrombus mid cephalic and basilic vein side Received 10 PRBC, 14 FFP, 2 platelets, 1 cryo-02/28 Received 3 units PRBCs Serial hemoglobins every 6 hours Recheck coags Ultrasound 01/23/17 - Bilateral lower extremity with occlusive posterior tibial vein DVTs. Heparin was initially started for DVT but was placed on hold due to LP with suspected traumatic tap. Currently holding full anticoagulation with enoxaparin 100 mg IV twice a day due to anemia as of 02/26. IVC filter was placed 01/25/17. Ultrasound LUE 02/10 occlusive thrombus mid cephalic vein, basilic veins. Transfuse 3 units PRBCs 02/27. Transfuse 2 units PRBCs 03/01. Transfused 1 unit PRBCs on 03/14. - follow CBC. Diabetes mellitus Hypoglycemia History of prior adrenal insufficiency with shock Gout EGD colonoscopy completed 02/22. Gastritis and esophagitis, colon polyps. Started Hydrocortisone 100 mg every 8 hours 02/21/17 (Recent high dose steroids use now hypotensive, hypoglycemic), steroids had been tapered off. Resumed stress dose steroids on 03/16 as patient back on Levophed for pressor support after intubation. - wean hydrocortisone to 25 mg IV every 6 hours. - Accu-Cheks to maintain euglycemia Novulin R every 4 hours. Low Regimen. Currently on insulin detemir 10 units twice a day. Right distal ulna fracture. Dr. Nathan with orthopedics has evaluated and recommended nonoperative management. - Right wrist splint in place. Hypernatremia S/t NPO status. - follow BMP. Start D5W. Improving. PROPH: Lansoprazole 30 mg twice a day twice a day for stress ulcer prophylaxis. Has IVC filter. Therapeutic enoxaparin currently on hold for retroperitoneal hematoma Discharge Planning Awaiting placement Problem Qualifiers (1) Hyperlipidemia: Qualified Codes: E78.5 - Hyperlipidemia, unspecified (2) HTN (hypertension): Qualified Codes: I10 - Essential (primary) hypertension (3) Diabetes mellitus with hyperglycemia: Qualified Codes: E11.65 - Type 2 diabetes mellitus with hyperglycemia (4) Diarrhea: Qualified Codes: A09 - Infectious gastroenteritis and colitis, unspecified (5) Abdominal pain: Qualified Codes: R10.84 - Generalized abdominal pain (6) Sepsis: Qualified Codes: A41.9 - Sepsis, unspecified organism Benjamin Christian DO Mar 30, 2017 12:29
[2017-03-30 15:06] LABS: BICARBONATE 32.1 MEQ/L (21.0-32.0); POTASSIUM 3.6 MEQ/L (3.5-5.1)
[2017-03-30] MEDS: FREE WATER G-TUBE SCH ×2 (17:00→20:00)
--- NOTE | 2017-03-30 17:28 | HHI.PR ---
Subjective Remarks The patient doing well. downsize trach..no issues no secretions Objective Vital Signs Date Time Temp Pulse Resp B/P (MAP) Pulse Ox O2 Delivery O2 Flow Rate FiO2 03/30/17 16:41 97.8 94 20 123/70 (87) 96 03/30/17 12:55 99.0 84 20 126/80 (95) 97 03/30/17 10:46 79 03/30/17 09:44 98 T-Piece 5.00 28 03/30/17 08:51 98.8 89 20 138/79 (98) 97 03/30/17 07:41 98 T-piece 6.00 28 03/30/17 05:30 98.5 80 18 168/78 (108) 98 03/30/17 00:30 98.8 89 20 140/76 (97) 96 03/29/17 22:10 96 T-Piece 28 03/29/17 20:45 97.9 85 19 138/80 (99) 98 03/29/17 20:20 98 T-piece 6.00 28 03/29/17 18:00 81 03/29/17 17:40 97.8 87 18 122/59 (80) 97 I/O 03/29/17 03/29/17 03/29/17 03/30/17 03/30/17 03/30/17 07:00 15:00 23:00 07:00 15:00 23:00 Intake Total 0 ml 0 ml Output Total 2000 ml 200 ml 400 ml 1000 ml 300 ml Balance -2000 ml -200 ml -400 ml -1000 ml -300 ml Intake Oral 0 ml 0 ml Output Urine Total 2000 ml 200 ml 400 ml 1000 ml 300 ml Stool Total 0 ml 0 ml Result Diagram: 03/30/17 1116 03/30/17 1422 Objective Remarks GA: nad trach in place, mild purulant secretions around trach lungs: clear Heart: s1, S2 Abd: soft Neuro : no chnage Ext: no edema, no cyanosis Assessment and Plan Assessment and Plan 1: S/p TRach 2. s/P severe sepsis 3. Severe Deconditioning 4. ? tracheitis I decided to cont current tx plan will ask to culture trach secretions or drainge when wound care sees him if no secretions till am , I will do a capping trial, I have a good feeling that I will be abl;e to decanulate soon. Rishabh Estrada MD Mar 30, 2017 17:28
[2017-03-30] MEDS: ATORVASTATIN 10 MG TAB PO SCH (22:23)
[2017-03-31] VITALS (10 sets, daily range): BP systolic 126–139; BP diastolic 64–83; PULSE 84–112; RESP 18–20; TEMP 97.4–98.6; O2SAT 96–100
[2017-03-31] MEDS: INSULIN NovoLIN REGULAR SUPPLEMENTAL SCALE SQ SCH ×4 (02:00→20:00)
[2017-03-31] MEDS: oxyCODONE HCL ORAL CONC 5 MG/0.25 ML SYRINGE PO SCH ×6 (03:35→22:20)
[2017-03-31] MEDS: FREE WATER G-TUBE SCH ×6 (04:00→22:24)
[2017-03-31] MEDS: RESP: ALBUTEROL 2.5 MG/IPRATROPIUM 0.5 MG NEB (SCH) NEB ×3 (05:38→16:01)
[2017-03-31] MEDS: HYDROCORTISONE SOD SUCCINATE 100 MG VIAL IV PUSH SCH ×2 (06:33→22:23)
[2017-03-31] MEDS: CHLORHEXIDINE 0.12% (ORAL KIT) 15 ML CUP MT SCH ×2 (08:00→22:45)
[2017-03-31 08:03] LABS: BICARBONATE 29.4 MEQ/L (21.0-32.0); HEMATOCRIT 30.8 % (39.0-51.0); MEAN CELL VOLUME 90.1 FL (80.0-100.0); MEAN CORPUSCULAR HEMOGLOBIN 27.9 PG (27.0-34.0); PLATELET COUNT 148 TH/MM3 (150-450); POTASSIUM 3.9 MEQ/L (3.5-5.1); RED BLOOD COUNT 3.42 MIL/MM3 (4.50-5.90); RED CELL DISTRIBUTION WIDTH 16.5 % (11.6-17.2); WHITE BLOOD COUNT 18.4 TH/MM3 (4.0-11.0)
[2017-03-31 08:04] LABS: REVIEW FLAG FINAL
[2017-03-31] MEDS: SODIUM CHLORIDE 0.9% FLUSH 10 ML FLUSH IV FLUSH SCH ×3 (09:00→22:23)
[2017-03-31] MEDS: LACTOBACILLUS ACIDOPHILUS TAB PO SCH ×3 (10:30→17:59)
[2017-03-31] MEDS: ATENOLOL 25 MG TAB PO SCH ×2 (10:30→22:15)
[2017-03-31] MEDS: LANSOPRAZOLE SOLUTAB 30 MG TAB NG SCH ×2 (10:31→22:15)
[2017-03-31] MEDS: INSULIN DETEMIR 100 UNITS/ML VIAL SQ SCH ×2 (10:32→23:14)
--- NOTE | 2017-03-31 12:58 | HHI.PR ---
Subjective Remarks The patient was resting comfortably in bed. No acute concerns reported. He indicated no pain. He said he was breathing well. Objective Vitals Vital Signs Date Time Temp Pulse Resp B/P (MAP) Pulse Ox O2 Delivery O2 Flow Rate FiO2 03/31/17 12:00 97.4 88 18 127/83 (98) 100 03/31/17 11:13 96 T-piece 5.00 28 03/31/17 08:50 99 T-Piece 28 03/31/17 08:00 98.3 86 18 126/78 (94) 99 03/31/17 07:35 18 03/31/17 05:00 97.5 86 19 139/75 (96) 97 03/31/17 04:46 T-Piece 28 03/31/17 00:00 98.0 94 20 139/73 (95) 97 03/30/17 22:42 99 T-piece 28 03/30/17 21:15 97.9 105 21 138/88 (105) 96 03/30/17 16:41 97.8 94 20 123/70 (87) 96 I/O 03/30/17 03/30/17 03/30/17 03/31/17 03/31/17 03/31/17 07:00 15:00 23:00 07:00 15:00 23:00 Intake Total 0 ml 1959 ml 0 ml Output Total 400 ml 1000 ml 500 ml 1400 ml Balance -400 ml -1000 ml 1459 ml -1400 ml Intake Oral 0 ml 0 ml 0 ml Tube Feeding 1359 ml Other 600 ml Output Urine Total 400 ml 1000 ml 500 ml 800 ml Stool Total 0 ml 0 ml 600 ml Result Diagram: 03/31/17 0453 03/31/17 0453 Imaging Last Impressions Wrist X-Ray 03/27/17 0000 Signed Impressions: Service Date/Time: Monday, March 27, 2017 13:21 - CONCLUSION: 1. No acute fracture is identified. A portion of the previously documented distal ulna fracture remains visualized. 2. 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 Angelo Allen MD Chest X-Ray 03/14/17 0000 Signed Impressions: Service Date/Time: Tuesday, March 14, 2017 13:41 - CONCLUSION: 1. Tracheostomy in good position. 2. Left lower lung infiltrates and left pleural effusion. Candido Patton MD Aortography 02/28/17 0000 Signed Impressions: Service Date/Time: Tuesday, February 28, 2017 08:01 - CONCLUSION: 1. Active hemorrhage from distal right lateral sacral and iliolumbar branches successfully coil and Gelfoam embolized, as above. Juan Bhakta MD Abdomen/Pelvis CT 02/28/17 0000 Signed Impressions: Service Date/Time: Tuesday, February 28, 2017 06:51 - CONCLUSION: 1. The right retroperitoneal hematoma has increased in size, as above. There are 2 serpiginous arterially enhancing structures visualized, one in the right psoas muscle and another extending into the hematoma at the right iliac fossa. These could represent sites of continued active bleeding. 2. Stable moderate size left and small right pleural effusion with associated compressive atelectasis. 3. Stable small volume of free fluid in the abdomen and pelvis. There is also anasarca. The findings concerning the retroperitoneal hematoma were discussed with Dr. Aguiar via telephone at approximately 7: 10 AM on 02/28/2017. Angelo Allen MD Chest CT 02/27/17 0000 Signed Impressions: Service Date/Time: Monday, February 27, 2017 18:12 - CONCLUSION: 1. Bilateral pleural effusions with bibasilar atelectasis, left greater than right. Tom Sanchez MD Abdomen X-Ray 02/26/17 0000 Signed Impressions: Service Date/Time: Sunday, February 26, 2017 14:52 - CONCLUSION: 1. Nonobstructive bowel gas pattern. Juan Bhakta MD Upper Extremity Ultrasound 02/10/17 0000 Signed Impressions: Service Date/Time: Friday, February 10, 2017 18:46 - CONCLUSION: Occlusive thrombus in the cephalic and basilic veins. Benjamin Person MD Lung Scan- Nuclear Medicine 02/10/17 0000 Signed Impressions: Service Date/Time: Friday, February 10, 2017 22:17 - CONCLUSION: Low probability pulmonary embolism. Candido Patton MD Head CT 02/10/17 0000 Signed Impressions: Service Date/Time: Friday, February 10, 2017 23:51 - CONCLUSION: Negative noncontrast CT brain. Candido Patton MD Lumbar Puncture Fluoroscopy 02/01/17 Signed Impressions: Service Date/Time: January 09:35 - CONCLUSION: Uncomplicated fluoroscopically guided lumbar puncture. CSF was clear. Nabeel Peralta MD Head Magnetic Resonance Angiography 01/27/17 Signed Impressions: Service Date/Time: Friday, January 27, 2017 10:33 - CONCLUSION: No intracranial vascular abnormality is identified. There is no aneurysm visualized. Angelo Allen MD IVC Filter Placement X-Ray 01/25/17 Signed Impressions: Service Date/Time: January 10:29 - CONCLUSION: Uncomplicated inferior vena cava filter placement as above. Yung Fowler MD Thoracic Spine MRI 01/24/17 Signed Impressions: Service Date/Time: Tuesday, January 24, 2017 22:29 - CONCLUSION: 1. Mild degenerative spondylosis most prominently at T11-L1 with slight effacement of the anterior thecal sac and left lateral recess. No significant neural foraminal stenosis. 2. No acute fracture. Juan Bhakta MD Renal Ultrasound 01/23/17 Signed Impressions: Service Date/Time: Monday, January 23, 2017 08:53 - CONCLUSION: 1. Evidence of chronic parenchymal disease of both kidneys. No obstructive uropathy or other acute abnormality demonstrated. 2. Trace ascites, nonspecific. Angelo Garrido MD Lumbar Spine MRI 01/23/17 Signed Impressions: Service Date/Time: Monday, January 23, 2017 17:01 - CONCLUSION: 1. At L4-5 is a broad-based disc protrusion with severe central canal and lateral recess stenosis and flattening of the exiting right L4 nerve root. 2. L5-S1 there is a disc protrusion and moderate stenosis with flattening of the exiting L5 nerve roots bilaterally. 3. At L3-4 there is a moderate to severe central stenosis and lateral recess stenosis with mild foraminal stenosis. 4. No acute fracture or spondylolisthesis. Trace Holloway MD Lower Extremity Ultrasound 01/23/17 Signed Impressions: Service Date/Time: Monday, January 23, 2017 09:53 - CONCLUSION: Bilateral focal lower extremity DVT involving the posterior tibial veins. Angelo Garrido MD Cervical Spine MRI 9/5/17 0000 Signed Impressions: Service Date/Time: Monday, January 23, 2017 17:01 - CONCLUSION: 1. Multilevel cervical spine degenerative changes as above. 2. Mild degrees of spinal stenosis at C3/C4-C6/C7. No cord compression or cord signal abnormality. 3. Age indeterminate left paracentral/foraminal disc protrusion at C6/C7. 4. Multilevel foraminal stenosis, most severe on the left at C6/C7. Please see individual levels above. 5. No fracture or subluxation of the cervical spine. Angelo Garrido MD Brain MRI 01/23/17 0000 Signed Impressions: Service Date/Time: Monday, January 23, 2017 17:01 - CONCLUSION: 1. No acute stroke or other acute intracranial abnormality demonstrated. 2. Moderate severity chronic white matter changes, nonspecific but most likely related to chronic small vessel disease. 3. Few scattered tiny lacunar infarcts of the brainstem. 4. Given the findings are not entirely specific, clinical evaluation for possible multiple sclerosis recommended. Angelo Garrido MD Knee X-Ray [id number]/22/[id number] Signed Impressions: Service Date/Time: Sunday, January 22, 2017 21:17 - CONCLUSION: 1. Evidence of moderate to large joint effusion. 2. No acute fracture or malalignment. 3. Mild 3 compartment osteoarthritic change. Benjamin Person MD Hip and Pelvis X-Ray [id number]/22/[id number] Signed Impressions: Service Date/Time: Sunday, January 22, 2017 21:10 - CONCLUSION: 1. Mild to moderate degenerative change of both hips with no acute fracture or malalignment. There is flattening and remodeling of the right humeral head. Benajmin Person MD Objective Remarks GENERAL: Resting in bed, in no apparent distress. HEENT: Normocephalic. Atraumatic. Pupils equal, round, reactive. NECK: Tracheostomy in place. CHEST: on T piece via tracheostomy, air entry decreased bilaterally at bases. CARDIOVASCULAR: S1-S2 regular, no gallop or murmur. ABDOMEN distended. No rigidity. Umbilical hernia is reducible. No guarding. PEG tube in place. : Positive scrotal edema Sloan in place. MUSCULOSKELETAL: Pulses 2+. 1+ bilateral upper and lower extremity edema. Clean white Bandage/discontinued wound VAC on left upper extremity. NEUROLOGICAL: Awake and alert, has spontaneous eye opening. Opens and closes eyes on command, on T piece via tracheostomy. Moves 4 limbs weakly to stimulation. PSYCH: Flattened affect. Procedures IVC filter placement 01/25/2017 LP 01/26/2017 Medications and IVs Current Medications Medications (Trade) Dose Ordered Sig/Rosalia Route Start Time Stop Time Status Last Admin (NS Flush) 2 ml UNSCH PRN IV FLUSH 01/23/17 00:30 03/29/17 05:59 (NS Flush) 2 ml BID IV FLUSH 01/23/17 09:00 03/31/17 10:31 (Zofran Inj) 4 mg Q6H PRN IVP 01/23/17 00:30 02/26/17 17:23 (Narcan Inj) 0.4 mg UNSCH PRN IV 01/23/17 00:30 (Edna-Colace) 1 tab BID PO 01/23/17 09:00 Future Hold 02/24/17 20:31 (Dulcolax Supp) 10 mg DAILY PRN RECTAL 01/23/17 00:30 (Lipitor) 10 mg HS PO 01/24/17 21:00 Future hold 03/30/17 22:23 (Glucagon Inj) 1 mg UNSCH PRN OTHER 02/11/17 05:45 02/18/17 18:53 (Flomax) 0.4 mg Q12HR PO 02/17/17 15:00 Future Hold 02/26/17 08:49 (Lovenox Inj) 100 mg Q12H SQ 02/18/17 12:00 Future Hold 02/26/17 16:20 (Lactinex) 1 tab TID PO 02/19/17 13:00 03/31/17 10:30 (Apresoline Inj) 10 mg Q30M PRN IV PUSH 02/20/17 11:45 03/26/17 12:18 (D50w (Vial) Inj) 25 ml UNSCH PRN IV PUSH 02/20/17 12:45 03/27/17 13:20 (Questran Light Pkt) 4 gm Q12HR PO 02/25/17 21:00 Future Hold 02/27/17 10:32 (Aldactone) 25 mg DAILY PO 02/27/17 09:00 Future Hold (Peridex 0.12% Liq) 15 ml BID@08,20 MT 02/28/17 08:00 03/31/17 08:00 (Albuterol Neb) 2.5 mg Q2HR NEB PRN NEB 02/28/17 07:45 03/21/17 19:21 (NS Flush) UNSCH PRN IV FLUSH 03/01/17 13:00 (Heparin Inj) UNSCH PRN IV FLUSH 03/01/17 13:00 (NS Flush) DAILY IV FLUSH 03/04/17 09:00 03/26/17 09:00 (NS Flush) UNSCH PRN IV FLUSH 03/03/17 18:45 (Roxicodone Intensol Liq) 10 mg Q4H PO 03/05/17 14:00 03/31/17 10:30 (Prevacid Odt) 30 mg BID NG 03/07/17 21:00 03/31/17 10:31 (Tylenol 650 Mg/ 20 ml Liq) 650 mg Q6H PRN PO 03/09/17 10:15 03/14/17 05:24 (Trandate Inj) 20 mg Q4H PRN IV 03/12/17 04:30 03/17/17 12:25 (Tenormin) 25 mg Q12HR PO 03/12/17 10:00 03/31/17 10:30 (Epogen Inj) 10,000 units UNSCH PRN IV PUSH 03/17/17 11:30 03/22/17 10:52 (Nitroglycerin 2% Oint) 2 inch Q6H PRN TOPICAL 03/23/17 14:00 03/29/17 01:20 (NovoLIN R SUPPLEMENTAL SCALE) 1 Q6H SQ 03/26/17 14:00 03/31/17 08:00 (Lasix Inj) 20 mg DAILY IV PUSH 03/27/17 09:00 Future Hold 03/29/17 09:34 (Duoneb Neb) 1 ampule Q6HR NEB NEB 03/27/17 16:00 03/31/17 11:09 (Levemir Inj) 10 units BID SQ 03/27/17 21:00 03/31/17 10:32 (Norvasc) 10 mg DAILY PO 03/28/17 09:00 03/31/17 10:31 (Free Water) VOLUME OF WATER: ( 400 ) ML Q4HR G-TUBE 03/30/17 17:00 03/31/17 08:00 (SoluCORTEF INJ) 25 mg BID IV PUSH 03/31/17 21:00 Date of Insertion: Mar 03, 2017 Line: Central Venous Catheter Side: Right Location: Internal, Jugular A/P Problem List: (1) Transverse myelitis ICD Code: G37.3 - Acute transverse myelitis in demyelinating disease of central nervous system Status: Acute (2) Septic shock ICD Code: A41.9 - Sepsis, unspecified organism; R65.21 - Severe sepsis with septic shock Status: Resolved (3) HCAP (healthcare-associated pneumonia) ICD Code: J18.9 - Pneumonia, unspecified organism (4) Acute respiratory failure with hypoxia and hypercarbia ICD Code: J96.01 - Acute respiratory failure with hypoxia; J96.02 - Acute respiratory failure with hypercapnia Status: Resolved (5) Hyperlipidemia ICD Code: E78.5 - Hyperlipidemia, unspecified Status: Chronic (6) HTN (hypertension) ICD Code: I10 - Essential (primary) hypertension (7) DVT of lower extremity, bilateral ICD Code: I82.403 - Acute embolism and thrombosis of unspecified deep veins of lower extremity, bilateral (8) Diabetes mellitus with hyperglycemia ICD Code: E11.65 - Type 2 diabetes mellitus with hyperglycemia (9) Hypocalcemia ICD Code: E83.51 - Hypocalcemia (10) Hypernatremia ICD Code: E87.0 - Hyperosmolality and hypernatremia (11) Hypokalemia ICD Code: E87.6 - Hypokalemia (12) Acute metabolic encephalopathy ICD Code: G93.41 - Metabolic encephalopathy (13) Quadriparesis ICD Code: G82.50 - Quadriplegia, unspecified Status: Acute (14) BREEZY (acute kidney injury) ICD Code: N17.9 - Acute kidney failure, unspecified (15) Diarrhea ICD Code: R19.7 - Diarrhea, unspecified (16) Abdominal pain ICD Code: R10.9 - Unspecified abdominal pain (17) Hypoglycemia ICD Code: E16.2 - Hypoglycemia, unspecified (18) Urinary retention ICD Code: R33.9 - Retention of urine, unspecified (19) Acute hypoxemic respiratory failure ICD Code: J96.01 - Acute respiratory failure with hypoxia (20) Sepsis ICD Code: A41.9 - Sepsis, unspecified organism Assessment and Plan Acute metabolic encephalopathy- persistent Quadriparesis secondary to suspected transverse myelitis Recurrent falls Pain secondary to retroperitoneal hematoma. Suspected transverse myelitis. Received methylprednisolone 250 mg IV every 6 hours 01/27-02/02, started back on hydrocortisone 02/21/17, initially tapering to 50 mg IV every 8 hours starting received 1 dose at 2100 prior to becoming hypotensive. weaning hydrocortisone taper and stopped 03/09. Resumed hydrocortisone 50mg IV Q6hrly on 03/14 as patient became hypotensive following intubation on 03/13 requiring levophed. LP 01/26 and 02/01. CSF culture negative 01/26, 02/01 Oligoclonal bands negative. CSF/serum IgG index is not elevated. VDRL nonreactive. Cryptococcal antigen negative. Brain MRI 01/23 no acute stroke. Few scattered lacunar infarcts of the brainstem. Moderate chronic white matter changes. MRI cervical/thoracic spine- mild spinal stenosis C3/C4 to C6/C7. No cord compression. RPR negative. Neurology has been following, Dr. Crenshaw. Repeat CT brain 02/10 - negative. - Continue PT/OT. - Continue pain control with a bowel regimen. Acute hypoxemic respiratory failure Healthcare associated pneumonia/Aspiration Pneumonia Right-sided chest tube placed for pleural effusion. VQ scan 02/10 low probability for PE. CT chest 02/10 - left lower lobe collapse and consolidation. CT chest 02/27 revealed right greater than left pleural effusions. Extubated 02/23. Intubated 02/28. Extubated 03/11, Reintubated on . 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 Failed attempt to wean successfully due to volume overload and multiple organ failure. underwent perc tracheostomy 03/14. - pulmonology following for trach care, possible downsizing. Consult appreciated. - Albuterol/ipratropium aerosols every 6 hours with albuterol aerosols every 2 hours prn. Severe sepsis - resolved. Systolic heart failure likely chronic with ejection fraction 20-25% Hyperlipidemia History of hypertension Mild TR Sinus tachycardia Elevated troponin likely type II demand ischemia Restarted on Levophed on 03/09 following intubation, titrated off after starting hydrocortisone. Started hydrocortisone stress dose on 03/14 (as patient has been on steroids and was just tapered off on 03/09.) Patient had been hypotensive twice when attempting to wean off stress dose hydrocortisone in the past. EKG with nonspecific ST-T changes. 2-D echocardiogram 01/11 revealed EF 20-25%. Mild TR. Pulmonary arterial pressures were normal around 20. Troponin 6.55 on 03/02. - Likely will need stress test of heart once stable. Cannot anticoagulate due to retroperitoneal hematoma at the present time. - Currently on atenolol 25 mg twice a day. Continue amlodipine, increased to 10 mg daily. - As needed Nitropaste, labetalol and hydralazine for hypertension. - Atorvastatin 10 mg by mouth daily for dyslipidemia. - Lasix on hold. Large right retroperitoneal hematoma Erosive esophagitis Adematous/hyperplastic colon polyps Severe acute protein calorie malnutrition Nausea/vomiting - resolved. Diarrhea Gastritis Diverticulosis Internal and external hemorrhoids Hiatal hernia Elevated lipase 02/27 CT chest/abdomen and pelvis - 9.4 x 7.5 renal and 16 x 12 cm right psoas muscle hematoma. Fluid around liver and spleen. Right-sided nephrolithiasis. CTA abdomen 02/28 - possible blushing around iliac/lumbar vessels. Discussed with IR. s/p attempted embolization. CT abdomen and pelvis 02/10 atrophic left kidney. Bilateral inguinal hernias fat-containing. Nonobstructing 12 mm right kidney stone. Repeat CT abd/pelvis did not show evidence of obstruction. EGD/ Colonoscopy-02/22/17 showed gastritis esophagitis, hiatal hernia, diverticulosis and multiple polyps in descending colon and sigmoid which were snared biopsied. Biopsy pending. Dr. Lewis consulted for intervention if needed for elevated IAP. will continue to check as needed. Status post PEG tube placement by . - Lansoprazole 30 mg twice a day for GI prophylaxis. - Discontinued metoclopramide 5 milligrams IV every 8 hours today. - Dietary consult placed for appropriate tube feeding. Acute kidney injury in the setting of Chronic kidney disease stage 3-4 History of uric acid kidney stones with prior stent BPH Nonfunctioning left kidney Acute intravascular volume overload Hypokalemia/ Hyperkalemia Sloan placed due to urinary retention and worsening creatinine Maintain Sloan secondary to urinary retention Monitor intake and output q1hr. Monitor electrolytes. RIOS/SPEP negative. 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 Recommended nephrostomy tube if obstruction. Nephrology consulted, hemodialysis per nephrology. Making urine. Due to acute illness holding tamsulosin 0.4 mg by mouth daily for BPH. - Hyperkalemia resolved. Septic shock- resolved. Abscess and Suppurative thrombophlebitis left upper extremity MSSA bacteremia Klebsiella UTI ESBL positive Acute aspiration pneumonia/HCAP Previously treated with Bactrim, ertapenem, intermittent vancomycin, nafcillin. Blood cultures 2, UA ESBL positive Klebsiella UTI. Sputum 03/14 - Pseudomonas came back resistant to imipenem. Repeat blood cultures 2 and sputum 03/08 pending. Urine negative. - Switched from meropenem to ceftazidime on 03/19, vancomycin IV 1 dose given on 03/19 and 03/22. Follow up with ID. Acute blood loss anemia DVT, bilateral posterior tibial vein, IVC filter Septic thrombophlebitis with occlusive thrombus mid cephalic and basilic vein side Received 10 PRBC, 14 FFP, 2 platelets, 1 cryo-02/28 Received 3 units PRBCs Serial hemoglobins every 6 hours Recheck coags Ultrasound 01/23/17 - Bilateral lower extremity with occlusive posterior tibial vein DVTs. Heparin was initially started for DVT but was placed on hold due to LP with suspected traumatic tap. Currently holding full anticoagulation with enoxaparin 100 mg IV twice a day due to anemia as of 02/26. IVC filter was placed 01/25/17. Ultrasound LUE 02/10 occlusive thrombus mid cephalic vein, basilic veins. Transfuse 3 units PRBCs 02/27. Transfuse 2 units PRBCs 03/01. Transfused 1 unit PRBCs on 03/14. - follow CBC. Stable. Diabetes mellitus Hypoglycemia History of prior adrenal insufficiency with shock Gout EGD colonoscopy completed 02/22. Gastritis and esophagitis, colon polyps. Started Hydrocortisone 100 mg every 8 hours 02/21/17 (Recent high dose steroids use now hypotensive, hypoglycemic), steroids had been tapered off. Resumed stress dose steroids on 03/16 as patient back on Levophed for pressor support after intubation. - wean hydrocortisone to 25 mg IV every twice a day. - Accu-Cheks to maintain euglycemia Novulin R every 4 hours. Low Regimen. Currently on insulin detemir 10 units twice a day. Right distal ulna fracture. Dr. Nathan with orthopedics has evaluated and recommended nonoperative management. - Right wrist splint in place. Hypernatremia S/t NPO status. - follow BMP. - Change D5W to free water. Stable. PROPH: Lansoprazole 30 mg twice a day twice a day for stress ulcer prophylaxis. Has IVC filter. Therapeutic enoxaparin currently on hold for retroperitoneal hematoma Discharge Planning Awaiting placement Problem Qualifiers (1) Hyperlipidemia: Qualified Codes: E78.5 - Hyperlipidemia, unspecified (2) HTN (hypertension): Qualified Codes: I10 - Essential (primary) hypertension (3) Diabetes mellitus with hyperglycemia: Qualified Codes: E11.65 - Type 2 diabetes mellitus with hyperglycemia (4) Diarrhea: Qualified Codes: A09 - Infectious gastroenteritis and colitis, unspecified (5) Abdominal pain: Qualified Codes: R10.84 - Generalized abdominal pain (6) Sepsis: Qualified Codes: A41.9 - Sepsis, unspecified organism Benjamin Christian DO Mar 31, 2017 12:58
[2017-03-31] MEDS: ATORVASTATIN 10 MG TAB PO SCH (22:15)
[2017-04-01] VITALS (9 sets, daily range): BP systolic 110–133; BP diastolic 62–76; PULSE 83–106; RESP 19–20; TEMP 96.9–100.5; O2SAT 91–97
[2017-04-01] MEDS: oxyCODONE HCL ORAL CONC 5 MG/0.25 ML SYRINGE PO SCH ×6 (02:00→22:34)
[2017-04-01] MEDS: INSULIN NovoLIN REGULAR SUPPLEMENTAL SCALE SQ SCH ×4 (02:00→20:00)
[2017-04-01] MEDS: FREE WATER G-TUBE SCH ×6 (04:20→20:30)
[2017-04-01 06:06] LABS: HEMATOCRIT 30.6 % (39.0-51.0); MEAN CELL VOLUME 90.2 FL (80.0-100.0); MEAN CORPUSCULAR HEMOGLOBIN 28.9 PG (27.0-34.0); MEAN CORPUSCULAR HGB CONC 32.1 % (32.0-36.0); PLATELET COUNT 131 TH/MM3 (150-450); RED BLOOD COUNT 3.39 MIL/MM3 (4.50-5.90); RED CELL DISTRIBUTION WIDTH 16.7 % (11.6-17.2); WHITE BLOOD COUNT 17.2 TH/MM3 (4.0-11.0)
[2017-04-01 06:08] LABS: REVIEW FLAG FINAL
[2017-04-01 06:42] LABS: BICARBONATE 29.8 MEQ/L (21.0-32.0); MAGNESIUM 1.9 MG/DL (1.5-2.5); POTASSIUM 3.3 MEQ/L (3.5-5.1)
[2017-04-01] MEDS: CHLORHEXIDINE 0.12% (ORAL KIT) 15 ML CUP MT SCH (08:00)
[2017-04-01] MEDS: HYDROCORTISONE SOD SUCCINATE 100 MG VIAL IV PUSH SCH ×2 (09:00→22:29)
[2017-04-01] MEDS: INSULIN DETEMIR 100 UNITS/ML VIAL SQ SCH ×2 (09:00→21:00)
[2017-04-01] MEDS: SODIUM CHLORIDE 0.9% FLUSH 10 ML FLUSH IV FLUSH SCH ×3 (09:00→21:00)
[2017-04-01] MEDS: ATENOLOL 25 MG TAB PO SCH ×2 (09:50→22:24)
[2017-04-01] MEDS: LANSOPRAZOLE SOLUTAB 30 MG TAB NG SCH ×2 (09:51→21:00)
[2017-04-01] MEDS: LACTOBACILLUS ACIDOPHILUS TAB PO SCH ×3 (09:51→17:42)
--- NOTE | 2017-04-01 11:34 | HHI.PR ---
Subjective Remarks The patient doing well. downsize trach..no issues no secretions Objective Vital Signs Date Time Temp Pulse Resp B/P (MAP) Pulse Ox O2 Delivery O2 Flow Rate FiO2 04/01/17 11:00 18 04/01/17 08:00 99.5 83 20 112/67 (82) 95 04/01/17 05:26 100.5 93 19 133/76 (95) 97 04/01/17 00:52 96.9 86 19 130/67 (88) 97 03/31/17 22:14 Trach Collar 28 03/31/17 20:30 98.6 99 20 138/78 (98) 98 03/31/17 20:00 112 03/31/17 18:10 98 Nasal Cannula 6.00 28 03/31/17 16:00 98.1 84 18 127/64 (85) 98 03/31/17 12:00 97.4 88 18 127/83 (98) 100 I/O 03/31/17 03/31/17 03/31/17 04/01/17 04/01/17 04/01/17 07:00 15:00 23:00 07:00 15:00 23:00 Intake Total 0 ml 611 ml Output Total 1400 ml 725 ml 1000 ml Balance -1400 ml -725 ml 611 ml -1000 ml Intake Oral 0 ml Tube Feeding 611 ml Output Urine Total 800 ml 725 ml 1000 ml Stool Total 600 ml Result Diagram: 04/01/17 0506 04/01/17 0506 Objective Remarks GA: nad trach in place, no purulant secretions around trach lungs: clear Heart: s1, S2 Abd: soft Neuro : no chnage Ext: no edema, no cyanosis Assessment and Plan Assessment and Plan 1: S/p TRach 2. s/P severe sepsis 3. Severe Deconditioning 4. ? tracheitis II wioll do a capping trial. If he does ok for 24 to 48 hours then i zeinab decanulate him. I need all uncapping be documented even if only for few seconds to suction. rest of medical care as per Medical team Rishabh Estrada MD Apr 01, 2017 11:33
--- NOTE | 2017-04-01 15:25 | HHI.PR ---
Subjective Remarks The patient appeared comfortable. He was not very verbal today. He did open his eyes when talked to. No acute concerns from nursing. Objective Vitals Vital Signs Date Time Temp Pulse Resp B/P (MAP) Pulse Ox O2 Delivery O2 Flow Rate FiO2 04/01/17 12:00 96 T-piece 6.00 28 04/01/17 12:00 99.1 95 20 117/68 (84) 96 04/01/17 11:00 18 04/01/17 08:00 99.5 83 20 112/67 (82) 95 04/01/17 05:26 100.5 93 19 133/76 (95) 97 04/01/17 00:52 96.9 86 19 130/67 (88) 97 03/31/17 22:14 Trach Collar 28 03/31/17 20:30 98.6 99 20 138/78 (98) 98 03/31/17 20:00 112 03/31/17 18:10 98 Nasal Cannula 6.00 28 03/31/17 16:00 98.1 84 18 127/64 (85) 98 I/O 03/31/17 03/31/17 03/31/17 04/01/17 04/01/17 04/01/17 07:00 15:00 23:00 07:00 15:00 23:00 Intake Total 0 ml 611 ml Output Total 1400 ml 725 ml 1000 ml Balance -1400 ml -725 ml 611 ml -1000 ml Intake Oral 0 ml Tube Feeding 611 ml Output Urine Total 800 ml 725 ml 1000 ml Stool Total 600 ml Result Diagram: 04/01/17 0506 04/01/17 0506 Imaging Last Impressions Wrist X-Ray 03/27/17 0000 Signed Impressions: Service Date/Time: Monday, March 27, 2017 13:21 - CONCLUSION: 1. No acute fracture is identified. A portion of the previously documented distal ulna fracture remains visualized. 2. 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 Angelo Allen MD Chest X-Ray 03/14/17 0000 Signed Impressions: Service Date/Time: Tuesday, March 14, 2017 13:41 - CONCLUSION: 1. Tracheostomy in good position. 2. Left lower lung infiltrates and left pleural effusion. Candido Patton MD Aortography 02/28/17 0000 Signed Impressions: Service Date/Time: Tuesday, February 28, 2017 08:01 - CONCLUSION: 1. Active hemorrhage from distal right lateral sacral and iliolumbar branches successfully coil and Gelfoam embolized, as above. Juan Bhakta MD Abdomen/Pelvis CT 02/28/17 0000 Signed Impressions: Service Date/Time: Tuesday, February 28, 2017 06:51 - CONCLUSION: 1. The right retroperitoneal hematoma has increased in size, as above. There are 2 serpiginous arterially enhancing structures visualized, one in the right psoas muscle and another extending into the hematoma at the right iliac fossa. These could represent sites of continued active bleeding. 2. Stable moderate size left and small right pleural effusion with associated compressive atelectasis. 3. Stable small volume of free fluid in the abdomen and pelvis. There is also anasarca. The findings concerning the retroperitoneal hematoma were discussed with Dr. Aguiar via telephone at approximately 7: 10 AM on 02/28/2017. Angelo Allen MD Chest CT 02/27/17 0000 Signed Impressions: Service Date/Time: Monday, February 27, 2017 18:12 - CONCLUSION: 1. Bilateral pleural effusions with bibasilar atelectasis, left greater than right. Tom Sanchez MD Abdomen X-Ray 02/26/17 0000 Signed Impressions: Service Date/Time: Sunday, February 26, 2017 14:52 - CONCLUSION: 1. Nonobstructive bowel gas pattern. Juan Bhakta MD Upper Extremity Ultrasound 02/10/17 0000 Signed Impressions: Service Date/Time: Friday, February 10, 2017 18:46 - CONCLUSION: Occlusive thrombus in the cephalic and basilic veins. Benjamin Person MD Lung Scan- Nuclear Medicine 02/10/17 0000 Signed Impressions: Service Date/Time: Friday, February 10, 2017 22:17 - CONCLUSION: Low probability pulmonary embolism. Candido Patton MD Head CT 02/10/17 0000 Signed Impressions: Service Date/Time: Friday, February 10, 2017 23:51 - CONCLUSION: Negative noncontrast CT brain. Candido Patton MD Lumbar Puncture Fluoroscopy 02/01/17 0000 Signed Impressions: Service Date/Time: January 09:35 - CONCLUSION: Uncomplicated fluoroscopically guided lumbar puncture. CSF was clear. Nabeel Peralta MD Head Magnetic Resonance Angiography 01/27/17 Signed Impressions: Service Date/Time: Friday, January 27, 2017 10:33 - CONCLUSION: No intracranial vascular abnormality is identified. There is no aneurysm visualized. Angelo Allen MD IVC Filter Placement X-Ray 01/25/17 Signed Impressions: Service Date/Time: January 10:29 - CONCLUSION: Uncomplicated inferior vena cava filter placement as above. Yung Fowler MD Thoracic Spine MRI 01/24/17 Signed Impressions: Service Date/Time: Tuesday, January 24, 2017 22:29 - CONCLUSION: 1. Mild degenerative spondylosis most prominently at T11-L1 with slight effacement of the anterior thecal sac and left lateral recess. No significant neural foraminal stenosis. 2. No acute fracture. Juan Bhakta MD Renal Ultrasound 01/23/17 Signed Impressions: Service Date/Time: Monday, January 23, 2017 08:53 - CONCLUSION: 1. Evidence of chronic parenchymal disease of both kidneys. No obstructive uropathy or other acute abnormality demonstrated. 2. Trace ascites, nonspecific. Angelo Garrido MD Lumbar Spine MRI 01/23/17 Signed Impressions: Service Date/Time: Monday, January 23, 2017 17:01 - CONCLUSION: 1. At L4-5 is a broad-based disc protrusion with severe central canal and lateral recess stenosis and flattening of the exiting right L4 nerve root. 2. L5-S1 there is a disc protrusion and moderate stenosis with flattening of the exiting L5 nerve roots bilaterally. 3. At L3-4 there is a moderate to severe central stenosis and lateral recess stenosis with mild foraminal stenosis. 4. No acute fracture or spondylolisthesis. Trace Holloway MD Lower Extremity Ultrasound 01/23/17 Signed Impressions: Service Date/Time: Monday, January 23, 2017 09:53 - CONCLUSION: Bilateral focal lower extremity DVT involving the posterior tibial veins. Angelo Garrido MD Cervical Spine MRI 01/23/17 Signed Impressions: Service Date/Time: Monday, January 23, 2017 17:01 - CONCLUSION: 1. Multilevel cervical spine degenerative changes as above. 2. Mild degrees of spinal stenosis at C3/C4-C6/C7. No cord compression or cord signal abnormality. 3. Age indeterminate left paracentral/foraminal disc protrusion at C6/C7. 4. Multilevel foraminal stenosis, most severe on the left at C6/C7. Please see individual levels above. 5. No fracture or subluxation of the cervical spine. Angelo Garrido MD Brain MRI 01/23/17 0000 Signed Impressions: Service Date/Time: Monday, January 23, 2017 17:01 - CONCLUSION: 1. No acute stroke or other acute intracranial abnormality demonstrated. 2. Moderate severity chronic white matter changes, nonspecific but most likely related to chronic small vessel disease. 3. Few scattered tiny lacunar infarcts of the brainstem. 4. Given the findings are not entirely specific, clinical evaluation for possible multiple sclerosis recommended. Angelo Garrido MD Knee X-Ray [id number]/22/[id number] Signed Impressions: Service Date/Time: Sunday, January 22, 2017 21:17 - CONCLUSION: 1. Evidence of moderate to large joint effusion. 2. No acute fracture or malalignment. 3. Mild 3 compartment osteoarthritic change. Benjamin Person MD Hip and Pelvis X-Ray [id number]/22/[id number] Signed Impressions: Service Date/Time: Sunday, January 22, 2017 21:10 - CONCLUSION: 1. Mild to moderate degenerative change of both hips with no acute fracture or malalignment. There is flattening and remodeling of the right humeral head. Benjamin Person MD Objective Remarks GENERAL: Resting in bed, in no apparent distress. HEENT: Normocephalic. Atraumatic. Pupils equal, round, reactive. NECK: Tracheostomy in place. CHEST: on T piece via tracheostomy, air entry decreased bilaterally at bases. CARDIOVASCULAR: S1-S2 regular, no gallop or murmur. ABDOMEN distended. No rigidity. Umbilical hernia is reducible. No guarding. PEG tube in place. : Positive scrotal edema Sloan in place. MUSCULOSKELETAL: Pulses 2+. 1+ bilateral upper and lower extremity edema. Clean white Bandage/discontinued wound VAC on left upper extremity. NEUROLOGICAL: Lethargic, has spontaneous eye opening. Opens and closes eyes on command, on T piece via tracheostomy. Moves 4 limbs weakly to stimulation. PSYCH: Flattened affect. Procedures IVC filter placement 01/25/2017 LP 01/26/2017 Medications and IVs Current Medications Medications (Trade) Dose Ordered Sig/Rosalia Route Start Time Stop Time Status Last Admin (NS Flush) 2 ml UNSCH PRN IV FLUSH 01/23/17 00:30 03/29/17 05:59 (NS Flush) 2 ml BID IV FLUSH 01/23/17 09:00 04/01/17 09:50 (Zofran Inj) 4 mg Q6H PRN IVP 01/23/17 00:30 02/26/17 17:23 (Narcan Inj) 0.4 mg UNSCH PRN IV 01/23/17 00:30 (Edna-Colace) 1 tab BID PO 01/23/17 09:00 Future Hold 02/24/17 20:31 (Dulcolax Supp) 10 mg DAILY PRN RECTAL 01/23/17 00:30 (Lipitor) 10 mg HS PO 01/24/17 21:00 Future hold 03/31/17 22:15 (Glucagon Inj) 1 mg UNSCH PRN OTHER 02/11/17 05:45 02/18/17 18:53 (Flomax) 0.4 mg Q12HR PO 02/17/17 15:00 Future Hold 02/26/17 08:49 (Lovenox Inj) 100 mg Q12H SQ 02/18/17 12:00 Future Hold 02/26/17 16:20 (Lactinex) 1 tab TID PO 02/19/17 13:00 04/01/17 12:48 (Apresoline Inj) 10 mg Q30M PRN IV PUSH 02/20/17 11:45 03/26/17 12:18 (D50w (Vial) Inj) 25 ml UNSCH PRN IV PUSH 02/20/17 12:45 03/27/17 13:20 (Questran Light Pkt) 4 gm Q12HR PO 02/25/17 21:00 Future Hold 02/27/17 10:32 (Aldactone) 25 mg DAILY PO 02/27/17 09:00 Future Hold (Peridex 0.12% Liq) 15 ml BID@08,20 MT 02/28/17 08:00 04/01/17 08:00 (Albuterol Neb) 2.5 mg Q2HR NEB PRN NEB 02/28/17 07:45 03/21/17 19:21 (NS Flush) UNSCH PRN IV FLUSH 03/01/17 13:00 (Heparin Inj) UNSCH PRN IV FLUSH 03/01/17 13:00 (NS Flush) DAILY IV FLUSH 03/04/17 09:00 03/26/17 09:00 (NS Flush) UNSCH PRN IV FLUSH 03/03/17 18:45 (Roxicodone Intensol Liq) 10 mg Q4H PO 03/05/17 14:00 04/01/17 13:57 (Prevacid Odt) 30 mg BID NG 03/07/17 21:00 04/01/17 09:51 (Tylenol 650 Mg/ 20 ml Liq) 650 mg Q6H PRN PO 03/09/17 10:15 03/14/17 05:24 (Trandate Inj) 20 mg Q4H PRN IV 03/12/17 04:30 03/17/17 12:25 (Tenormin) 25 mg Q12HR PO 03/12/17 10:00 04/01/17 09:50 (Epogen Inj) 10,000 units UNSCH PRN IV PUSH 03/17/17 11:30 03/22/17 10:52 (Nitroglycerin 2% Oint) 2 inch Q6H PRN TOPICAL 03/23/17 14:00 03/29/17 01:20 (NovoLIN R SUPPLEMENTAL SCALE) 1 Q6H SQ 03/26/17 14:00 04/01/17 02:00 (Lasix Inj) 20 mg DAILY IV PUSH 03/27/17 09:00 Future Hold 03/29/17 09:34 (Levemir Inj) 10 units BID SQ 03/27/17 21:00 03/31/17 23:14 (Norvasc) 10 mg DAILY PO 03/28/17 09:00 04/01/17 09:51 (Free Water) VOLUME OF WATER: ( 400 ) ML Q4HR G-TUBE 03/30/17 17:00 04/01/17 12:00 (SoluCORTEF INJ) 25 mg BID IV PUSH 03/31/17 21:00 04/01/17 09:00 Date of Insertion: Mar 03, 2017 Line: Central Venous Catheter Side: Right Location: Internal, Jugular A/P Problem List: (1) Transverse myelitis ICD Code: G37.3 - Acute transverse myelitis in demyelinating disease of central nervous system Status: Acute (2) Septic shock ICD Code: A41.9 - Sepsis, unspecified organism; R65.21 - Severe sepsis with septic shock Status: Resolved (3) HCAP (healthcare-associated pneumonia) ICD Code: J18.9 - Pneumonia, unspecified organism (4) Acute respiratory failure with hypoxia and hypercarbia ICD Code: J96.01 - Acute respiratory failure with hypoxia; J96.02 - Acute respiratory failure with hypercapnia Status: Resolved (5) Hyperlipidemia ICD Code: E78.5 - Hyperlipidemia, unspecified Status: Chronic (6) HTN (hypertension) ICD Code: I10 - Essential (primary) hypertension (7) DVT of lower extremity, bilateral ICD Code: I82.403 - Acute embolism and thrombosis of unspecified deep veins of lower extremity, bilateral (8) Diabetes mellitus with hyperglycemia ICD Code: E11.65 - Type 2 diabetes mellitus with hyperglycemia (9) Hypocalcemia ICD Code: E83.51 - Hypocalcemia (10) Hypernatremia ICD Code: E87.0 - Hyperosmolality and hypernatremia (11) Hypokalemia ICD Code: E87.6 - Hypokalemia (12) Acute metabolic encephalopathy ICD Code: G93.41 - Metabolic encephalopathy (13) Quadriparesis ICD Code: G82.50 - Quadriplegia, unspecified Status: Acute (14) BREEZY (acute kidney injury) ICD Code: N17.9 - Acute kidney failure, unspecified (15) Diarrhea ICD Code: R19.7 - Diarrhea, unspecified (16) Abdominal pain ICD Code: R10.9 - Unspecified abdominal pain (17) Hypoglycemia ICD Code: E16.2 - Hypoglycemia, unspecified (18) Urinary retention ICD Code: R33.9 - Retention of urine, unspecified (19) Acute hypoxemic respiratory failure ICD Code: J96.01 - Acute respiratory failure with hypoxia (20) Sepsis ICD Code: A41.9 - Sepsis, unspecified organism Assessment and Plan Acute metabolic encephalopathy- persistent Quadriparesis secondary to suspected transverse myelitis Recurrent falls Pain secondary to retroperitoneal hematoma. Suspected transverse myelitis. Received methylprednisolone 250 mg IV every 6 hours 01/27-02/02, started back on hydrocortisone 02/21/17, initially tapering to 50 mg IV every 8 hours starting received 1 dose at 2100 prior to becoming hypotensive. weaning hydrocortisone taper and stopped 03/09. Resumed hydrocortisone 50mg IV Q6hrly on 03/14 as patient became hypotensive following intubation on 03/13 requiring levophed. LP 01/26 and 02/01. CSF culture negative 01/26, 02/01 Oligoclonal bands negative. CSF/serum IgG index is not elevated. VDRL nonreactive. Cryptococcal antigen negative. Brain MRI 01/23 no acute stroke. Few scattered lacunar infarcts of the brainstem. Moderate chronic white matter changes. MRI cervical/thoracic spine- mild spinal stenosis C3/C4 to C6/C7. No cord compression. RPR negative. Neurology has been following, Dr. Crenshaw. Repeat CT brain 02/10 - negative. - Continue PT/OT. - Continue pain control with a bowel regimen. Reduce dose of oxycodone as pt has been lethargic. Acute hypoxemic respiratory failure Healthcare associated pneumonia/Aspiration Pneumonia Right-sided chest tube placed for pleural effusion. VQ scan 02/10 low probability for PE. CT chest 02/10 - left lower lobe collapse and consolidation. CT chest 02/27 revealed right greater than left pleural effusions. Extubated 02/23. Intubated 02/28. Extubated 03/11, Reintubated on . 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 Failed attempt to wean successfully due to volume overload and multiple organ failure. underwent perc tracheostomy 03/14. - pulmonology following for [facility] care, downsized trach. Capping trial ordered. - Albuterol/ipratropium aerosols every 6 hours with albuterol aerosols every 2 hours prn. Severe sepsis - resolved. Systolic heart failure likely chronic with ejection fraction 20-25% Hyperlipidemia History of hypertension Mild TR Sinus tachycardia Elevated troponin likely type II demand ischemia Restarted on Levophed on 03/09 following intubation, titrated off after starting hydrocortisone. Started hydrocortisone stress dose on 03/14 (as patient has been on steroids and was just tapered off on 03/09.) Patient had been hypotensive twice when attempting to wean off stress dose hydrocortisone in the past. EKG with nonspecific ST-T changes. 2-D echocardiogram 01/11 revealed EF 20-25%. Mild TR. Pulmonary arterial pressures were normal around 20. Troponin 6.55 on 03/02. - Likely will need stress test of heart once stable. Cannot anticoagulate due to retroperitoneal hematoma at the present time. - Currently on atenolol 25 mg twice a day. Continue amlodipine, increased to 10 mg daily. - As needed Nitropaste, labetalol and hydralazine for hypertension. - Atorvastatin 10 mg by mouth daily for dyslipidemia. - Lasix on hold. Large right retroperitoneal hematoma Erosive esophagitis Adematous/hyperplastic colon polyps Severe acute protein calorie malnutrition Nausea/vomiting - resolved. Diarrhea Gastritis Diverticulosis Internal and external hemorrhoids Hiatal hernia Elevated lipase 02/27 CT chest/abdomen and pelvis - 9.4 x 7.5 renal and 16 x 12 cm right psoas muscle hematoma. Fluid around liver and spleen. Right-sided nephrolithiasis. CTA abdomen 02/28 - possible blushing around iliac/lumbar vessels. Discussed with IR. s/p attempted embolization. CT abdomen and pelvis 02/10 atrophic left kidney. Bilateral inguinal hernias fat-containing. Nonobstructing 12 mm right kidney stone. Repeat CT abd/pelvis did not show evidence of obstruction. EGD/ Colonoscopy-02/22/17 showed gastritis esophagitis, hiatal hernia, diverticulosis and multiple polyps in descending colon and sigmoid which were snared biopsied. Biopsy pending. Dr. Lewis consulted for intervention if needed for elevated IAP. will continue to check as needed. Status post PEG tube placement by . - Lansoprazole 30 mg twice a day for GI prophylaxis. - Discontinued metoclopramide 5 milligrams IV every 8 hours today. - Dietary consult placed for appropriate tube feeding. Acute kidney injury in the setting of Chronic kidney disease stage 3-4 History of uric acid kidney stones with prior stent BPH Nonfunctioning left kidney Acute intravascular volume overload Hypokalemia/ Hyperkalemia Sloan placed due to urinary retention and worsening creatinine Maintain Sloan secondary to urinary retention Monitor intake and output q1hr. Monitor electrolytes. RIOS/SPEP negative. 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 Recommended nephrostomy tube if obstruction. Nephrology consulted, hemodialysis per nephrology. Making urine. Due to acute illness holding tamsulosin 0.4 mg by mouth daily for BPH. - Hyperkalemia resolved. Septic shock- resolved. Abscess and Suppurative thrombophlebitis left upper extremity MSSA bacteremia Klebsiella UTI ESBL positive Acute aspiration pneumonia/HCAP Previously treated with Bactrim, ertapenem, intermittent vancomycin, nafcillin. Blood cultures 2, UA ESBL positive Klebsiella UTI. Sputum 03/14 - Pseudomonas came back resistant to imipenem. Repeat blood cultures 2 and sputum 03/08 pending. Urine negative. - Switched from meropenem to ceftazidime on 03/19, vancomycin IV 1 dose given on 03/19 and 03/22. Follow up with ID. Acute blood loss anemia DVT, bilateral posterior tibial vein, IVC filter Septic thrombophlebitis with occlusive thrombus mid cephalic and basilic vein side Received 10 PRBC, 14 FFP, 2 platelets, 1 cryo-02/28 Received 3 units PRBCs Serial hemoglobins every 6 hours Recheck coags Ultrasound 01/23/17 - Bilateral lower extremity with occlusive posterior tibial vein DVTs. Heparin was initially started for DVT but was placed on hold due to LP with suspected traumatic tap. Currently holding full anticoagulation with enoxaparin 100 mg IV twice a day due to anemia as of 02/26. IVC filter was placed 01/25/17. Ultrasound LUE 02/10 occlusive thrombus mid cephalic vein, basilic veins. Transfuse 3 units PRBCs 02/27. Transfuse 2 units PRBCs 03/01. Transfused 1 unit PRBCs on 03/14. - follow CBC. Stable. Diabetes mellitus Hypoglycemia History of prior adrenal insufficiency with shock Gout EGD colonoscopy completed 02/22. Gastritis and esophagitis, colon polyps. Started Hydrocortisone 100 mg every 8 hours 02/21/17 (Recent high dose steroids use now hypotensive, hypoglycemic), steroids had been tapered off. Resumed stress dose steroids on 03/16 as patient back on Levophed for pressor support after intubation. - wean hydrocortisone to 25 mg IV every twice a day. - Accu-Cheks to maintain euglycemia Novulin R every 4 hours. Low Regimen. Currently on insulin detemir 7 units twice a day. Right distal ulna fracture. Dr. Nathan with orthopedics has evaluated and recommended nonoperative management. - Right wrist splint in place. Hypernatremia S/t NPO status. - follow BMP. - Change D5W to free water. Stable. PROPH: Lansoprazole 30 mg twice a day twice a day for stress ulcer prophylaxis. Has IVC filter. Therapeutic enoxaparin currently on hold for retroperitoneal hematoma Discharge Planning Awaiting placement Problem Qualifiers (1) Hyperlipidemia: Qualified Codes: E78.5 - Hyperlipidemia, unspecified (2) HTN (hypertension): Qualified Codes: I10 - Essential (primary) hypertension (3) Diabetes mellitus with hyperglycemia: Qualified Codes: E11.65 - Type 2 diabetes mellitus with hyperglycemia (4) Diarrhea: Qualified Codes: A09 - Infectious gastroenteritis and colitis, unspecified (5) Abdominal pain: Qualified Codes: R10.84 - Generalized abdominal pain (6) Sepsis: Qualified Codes: A41.9 - Sepsis, unspecified organism Benjamin Christian DO Apr 01, 2017 15:25
[2017-04-01] MEDS ORDERED: SODIUM CHLOR 0.9% 250 ML INJ 250 ML IV ONE (15:30)
[2017-04-01] MEDS: POTASSIUM CHLOR 20 MEQ PREMIX 100 ML IV SCH ×2 (17:42→17:50)
[2017-04-01] MEDS ORDERED: POTASSIUM CHLOR 20 MEQ PREMIX 100 ML IV SCH (22:15)
[2017-04-01] MEDS: ACETAMINOPHEN 650 MG/20.3 ML UDC PO PRN (22:23)
[2017-04-01] MEDS: ATORVASTATIN 10 MG TAB PO SCH (22:28)
[2017-04-02] VITALS (9 sets, daily range): BP systolic 91–161; BP diastolic 54–80; PULSE 87–98; RESP 17–19; TEMP 98.3–100.3; O2SAT 94–100
--- NOTE | 2017-04-02 00:11 | RADRPT ---
EXAM DATE/TIME: 04/01/2017 23:42 [facility] COMPARISON: No previous studies available for comparison. INDICATIONS : Shortness of breath MEDICAL HISTORY : Hypertension. Diabetes mellitus type II. Renal Stents SURGICAL HISTORY : None. ENCOUNTER: Subsequent ACUITY: 2 months PAIN SCORE: Non-responsive. LOCATION: Bilateral chest FINDINGS: A single view of the chest demonstrates the lungs to be symmetrically aerated without evidence of mas s, or infiltrate . The heart remains enlarged. There is a moderate-sized left pleural effusion. Trach eostomy tube in good position.. Osseous structures are intact. CONCLUSION: Moderate-sized left pleural effusion. Tracheostomy tube in good position. Lungs are grossly clear. Duy eGnao MD on April 02, 2017 at 0:09 Board Certified Radiologist. This report was verified electronically.
[2017-04-02] MEDS: INSULIN NovoLIN REGULAR SUPPLEMENTAL SCALE SQ SCH ×2 (02:00→08:00)
[2017-04-02] MEDS: oxyCODONE HCL ORAL CONC 5 MG/0.25 ML SYRINGE PO SCH ×6 (02:38→22:30)
[2017-04-02] MEDS: CHLORHEXIDINE 0.12% (ORAL KIT) 15 ML CUP MT SCH ×3 (02:47→20:00)
[2017-04-02] MEDS: RESP: ALBUTEROL 2.5 MG/IPRATROPIUM 0.5 MG NEB (SCH) NEB ×5 (04:01→21:46)
[2017-04-02] MEDS: FREE WATER G-TUBE SCH ×6 (04:15→22:37)
[2017-04-02 07:21] LABS: HEMATOCRIT 28.7 % (39.0-51.0); MEAN CELL VOLUME 88.7 FL (80.0-100.0); MEAN CORPUSCULAR HEMOGLOBIN 28.3 PG (27.0-34.0); MEAN CORPUSCULAR HGB CONC 31.9 % (32.0-36.0); PLATELET COUNT 130 TH/MM3 (150-450); RED BLOOD COUNT 3.23 MIL/MM3 (4.50-5.90); REVIEW FLAG FINAL; WHITE BLOOD COUNT 17.4 TH/MM3 (4.0-11.0)
[2017-04-02 07:47] LABS: BICARBONATE 28.2 MEQ/L (21.0-32.0); MAGNESIUM 1.8 MG/DL (1.5-2.5); POTASSIUM 3.8 MEQ/L (3.5-5.1)
[2017-04-02] MEDS: SODIUM CHLORIDE 0.9% FLUSH 10 ML FLUSH IV FLUSH SCH ×3 (09:00→22:27)
[2017-04-02] MEDS: INSULIN DETEMIR 100 UNITS/ML VIAL SQ SCH (09:00)
[2017-04-02] MEDS: LACTOBACILLUS ACIDOPHILUS TAB PO SCH ×3 (10:05→17:57)
[2017-04-02] MEDS: LANSOPRAZOLE SOLUTAB 30 MG TAB NG SCH ×2 (10:05→22:28)
[2017-04-02] MEDS: ATENOLOL 25 MG TAB PO SCH ×2 (10:05→22:29)
[2017-04-02] MEDS: HYDROCORTISONE SOD SUCCINATE 100 MG VIAL IV PUSH SCH ×2 (10:05→22:28)
[2017-04-02] MEDS ORDERED: SODIUM CHLOR 0.9% 1000 ML INJ 1,000 ML IV SCH (11:45)
[2017-04-02] MEDS: INSULIN ASPART SUPPLEMENTAL SCALE SQ SCH ×3 (12:00→21:00)
--- NOTE | 2017-04-02 12:05 | HHI.PR ---
Subjective Remarks The patient was more alert today. He did not indicate any discomfort. He was resting comfortably. Discussed with nursing. Objective Vitals Vital Signs Date Time Temp Pulse Resp B/P (MAP) Pulse Ox O2 Delivery O2 Flow Rate FiO2 04/02/17 08:31 99.0 91 17 155/76 (102) 100 04/02/17 08:26 100 T-piece 50 04/02/17 05:14 98.8 95 19 130/61 (84) 99 04/02/17 01:14 99.3 98 19 106/57 (73) 96 04/02/17 00:15 100.3 97 19 91/54 (66) 96 04/01/17 21:36 96 T-piece 50 04/01/17 20:20 93 T-Piece 35 04/01/17 20:16 99.9 106 20 110/62 (78) 91 04/01/17 20:16 T-Piece 28.00 04/01/17 20:15 88 04/01/17 18:54 18 04/01/17 18:25 96 T-piece 28 04/01/17 15:00 18 I/O 04/01/17 04/01/17 04/01/17 04/02/17 04/02/17 04/02/17 07:00 15:00 23:00 07:00 15:00 23:00 Intake Total 675 ml 935 ml Output Total 1000 ml 300 ml Balance -1000 ml 675 ml 635 ml IV Total 100 ml 350 ml Tube Feeding 575 ml 585 ml Output Urine Total 1000 ml 300 ml Bladder Scan Volume Amount 25 ml Result Diagram: 04/02/17 0640 04/02/17 0640 Imaging Last Impressions Chest X-Ray 04/01/17 0000 Signed Impressions: Service Date/Time: Saturday, April 01, 2017 23:42 - CONCLUSION: Moderate-sized left pleural effusion. Tracheostomy tube in good position. Lungs are grossly clear. Duy Genao MD Wrist X-Ray 03/27/17 0000 Signed Impressions: Service Date/Time: Monday, March 27, 2017 13:21 - CONCLUSION: 1. No acute fracture is identified. A portion of the previously documented distal ulna fracture remains visualized. 2. 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 Angelo Allen MD Aortography 02/28/17 0000 Signed Impressions: Service Date/Time: Tuesday, February 28, 2017 08:01 - CONCLUSION: 1. Active hemorrhage from distal right lateral sacral and iliolumbar branches successfully coil and Gelfoam embolized, as above. Juan Bhakta MD Abdomen/Pelvis CT 02/28/17 0000 Signed Impressions: Service Date/Time: Tuesday, February 28, 2017 06:51 - CONCLUSION: 1. The right retroperitoneal hematoma has increased in size, as above. There are 2 serpiginous arterially enhancing structures visualized, one in the right psoas muscle and another extending into the hematoma at the right iliac fossa. These could represent sites of continued active bleeding. 2. Stable moderate size left and small right pleural effusion with associated compressive atelectasis. 3. Stable small volume of free fluid in the abdomen and pelvis. There is also anasarca. The findings concerning the retroperitoneal hematoma were discussed with Dr. Aguiar via telephone at approximately 7: 10 AM on 02/28/2017. Angelo Allen MD Chest CT 02/27/17 0000 Signed Impressions: Service Date/Time: Monday, February 27, 2017 18:12 - CONCLUSION: 1. Bilateral pleural effusions with bibasilar atelectasis, left greater than right. Tom Sanchez MD Abdomen X-Ray 02/26/17 0000 Signed Impressions: Service Date/Time: Sunday, February 26, 2017 14:52 - CONCLUSION: 1. Nonobstructive bowel gas pattern. Juan Bhakta MD Upper Extremity Ultrasound 02/10/17 0000 Signed Impressions: Service Date/Time: Friday, February 10, 2017 18:46 - CONCLUSION: Occlusive thrombus in the cephalic and basilic veins. Benjamin Person MD Lung Scan- Nuclear Medicine 02/10/17 0000 Signed Impressions: Service Date/Time: Friday, February 10, 2017 22:17 - CONCLUSION: Low probability pulmonary embolism. Candido Patton MD Head CT 02/10/17 0000 Signed Impressions: Service Date/Time: Friday, February 10, 2017 23:51 - CONCLUSION: Negative noncontrast CT brain. Candido Patton MD Lumbar Puncture Fluoroscopy 9/14/17 0000 Signed Impressions: Service Date/Time: January 09:35 - CONCLUSION: Uncomplicated fluoroscopically guided lumbar puncture. CSF was clear. Nabeel Peralta MD Head Magnetic Resonance Angiography 01/27/17 Signed Impressions: Service Date/Time: Friday, January 27, 2017 10:33 - CONCLUSION: No intracranial vascular abnormality is identified. There is no aneurysm visualized. Angelo Allen MD IVC Filter Placement X-Ray 01/25/17 Signed Impressions: Service Date/Time: January 10:29 - CONCLUSION: Uncomplicated inferior vena cava filter placement as above. Yung Fowler MD Thoracic Spine MRI 01/24/17 Signed Impressions: Service Date/Time: Tuesday, January 24, 2017 22:29 - CONCLUSION: 1. Mild degenerative spondylosis most prominently at T11-L1 with slight effacement of the anterior thecal sac and left lateral recess. No significant neural foraminal stenosis. 2. No acute fracture. Juan Bhakta MD Renal Ultrasound 01/23/17 Signed Impressions: Service Date/Time: Monday, January 23, 2017 08:53 - CONCLUSION: 1. Evidence of chronic parenchymal disease of both kidneys. No obstructive uropathy or other acute abnormality demonstrated. 2. Trace ascites, nonspecific. Angelo Garrido MD Lumbar Spine MRI 01/23/17 Signed Impressions: Service Date/Time: Monday, January 23, 2017 17:01 - CONCLUSION: 1. At L4-5 is a broad-based disc protrusion with severe central canal and lateral recess stenosis and flattening of the exiting right L4 nerve root. 2. L5-S1 there is a disc protrusion and moderate stenosis with flattening of the exiting L5 nerve roots bilaterally. 3. At L3-4 there is a moderate to severe central stenosis and lateral recess stenosis with mild foraminal stenosis. 4. No acute fracture or spondylolisthesis. Trace Holloway MD Lower Extremity Ultrasound 01/23/17 Signed Impressions: Service Date/Time: Monday, January 23, 2017 09:53 - CONCLUSION: Bilateral focal lower extremity DVT involving the posterior tibial veins. Angelo Garrido MD Cervical Spine MRI 01/23/17 Signed Impressions: Service Date/Time: Monday, January 23, 2017 17:01 - CONCLUSION: 1. Multilevel cervical spine degenerative changes as above. 2. Mild degrees of spinal stenosis at C3/C4-C6/C7. No cord compression or cord signal abnormality. 3. Age indeterminate left paracentral/foraminal disc protrusion at C6/C7. 4. Multilevel foraminal stenosis, most severe on the left at C6/C7. Please see individual levels above. 5. No fracture or subluxation of the cervical spine. Angelo Garrido MD Brain MRI 01/23/17 0000 Signed Impressions: Service Date/Time: Monday, January 23, 2017 17:01 - CONCLUSION: 1. No acute stroke or other acute intracranial abnormality demonstrated. 2. Moderate severity chronic white matter changes, nonspecific but most likely related to chronic small vessel disease. 3. Few scattered tiny lacunar infarcts of the brainstem. 4. Given the findings are not entirely specific, clinical evaluation for possible multiple sclerosis recommended. Angelo Garrido MD Knee X-Ray [id number]/22/[id number] Signed Impressions: Service Date/Time: Sunday, January 22, 2017 21:17 - CONCLUSION: 1. Evidence of moderate to large joint effusion. 2. No acute fracture or malalignment. 3. Mild 3 compartment osteoarthritic change. Benjamin Person MD Hip and Pelvis X-Ray [id number]/22/[id number] Signed Impressions: Service Date/Time: Sunday, January 22, 2017 21:10 - CONCLUSION: 1. Mild to moderate degenerative change of both hips with no acute fracture or malalignment. There is flattening and remodeling of the right humeral head. Benjamin Person MD Objective Remarks GENERAL: Resting in bed, in no apparent distress. HEENT: Normocephalic. Atraumatic. Pupils equal, round, reactive. NECK: Tracheostomy in place. CHEST: on T piece via tracheostomy, air entry decreased bilaterally at bases. CARDIOVASCULAR: S1-S2 regular, no gallop or murmur. ABDOMEN distended. No rigidity. Umbilical hernia is reducible. No guarding. PEG tube in place. : Positive scrotal edema Sloan in place. MUSCULOSKELETAL: Pulses 2+. 1+ bilateral upper and lower extremity edema. Clean white Bandage/discontinued wound VAC on left upper extremity. NEUROLOGICAL: Lethargic, has spontaneous eye opening. Opens and closes eyes on command, on T piece via tracheostomy. Moves 4 limbs weakly to stimulation. PSYCH: Flattened affect. Procedures IVC filter placement 01/25/2017 LP 01/26/2017 Medications and IVs Current Medications Medications (Trade) Dose Ordered Sig/Rosalia Route Start Time Stop Time Status Last Admin (NS Flush) 2 ml UNSCH PRN IV FLUSH 01/23/17 00:30 03/29/17 05:59 (NS Flush) 2 ml BID IV FLUSH 01/23/17 09:00 04/01/17 09:50 (Zofran Inj) 4 mg Q6H PRN IVP 01/23/17 00:30 02/26/17 17:23 (Narcan Inj) 0.4 mg UNSCH PRN IV 01/23/17 00:30 (Edna-Colace) 1 tab BID PO 01/23/17 09:00 Future Hold 02/24/17 20:31 (Dulcolax Supp) 10 mg DAILY PRN RECTAL 01/23/17 00:30 (Lipitor) 10 mg HS PO 01/24/17 21:00 Future hold 04/01/17 22:28 (Glucagon Inj) 1 mg UNSCH PRN OTHER 02/11/17 05:45 02/18/17 18:53 (Flomax) 0.4 mg Q12HR PO 02/17/17 15:00 Future Hold 02/26/17 08:49 (Lovenox Inj) 100 mg Q12H SQ 02/18/17 12:00 Future Hold 02/26/17 16:20 (Lactinex) 1 tab TID PO 02/19/17 13:00 04/02/17 10:05 (Apresoline Inj) 10 mg Q30M PRN IV PUSH 02/20/17 11:45 03/26/17 12:18 (D50w (Vial) Inj) 25 ml UNSCH PRN IV PUSH 02/20/17 12:45 03/27/17 13:20 (Questran Light Pkt) 4 gm Q12HR PO 02/25/17 21:00 Future Hold 02/27/17 10:32 (Aldactone) 25 mg DAILY PO 02/27/17 09:00 Future Hold (Peridex 0.12% Liq) 15 ml BID@08,20 MT 02/28/17 08:00 04/02/17 02:47 (Albuterol Neb) 2.5 mg Q2HR NEB PRN NEB 02/28/17 07:45 03/21/17 19:21 (NS Flush) UNSCH PRN IV FLUSH 03/01/17 13:00 (Heparin Inj) UNSCH PRN IV FLUSH 03/01/17 13:00 (NS Flush) DAILY IV FLUSH 03/04/17 09:00 03/26/17 09:00 (NS Flush) UNSCH PRN IV FLUSH 03/03/17 18:45 (Prevacid Odt) 30 mg BID NG 03/07/17 21:00 04/02/17 10:05 (Tylenol 650 Mg/ 20 ml Liq) 650 mg Q6H PRN PO 03/09/17 10:15 04/01/17 22:23 (Trandate Inj) 20 mg Q4H PRN IV 03/12/17 04:30 03/17/17 12:25 (Tenormin) 25 mg Q12HR PO 03/12/17 10:00 04/02/17 10:05 (Epogen Inj) 10,000 units UNSCH PRN IV PUSH 03/17/17 11:30 03/22/17 10:52 (Nitroglycerin 2% Oint) 2 inch Q6H PRN TOPICAL 03/23/17 14:00 03/29/17 01:20 (Lasix Inj) 20 mg DAILY IV PUSH 03/27/17 09:00 Future Hold 03/29/17 09:34 (Norvasc) 10 mg DAILY PO 03/28/17 09:00 04/02/17 10:05 (Free Water) VOLUME OF WATER: ( 400 ) ML Q4HR G-TUBE 03/30/17 17:00 04/02/17 08:00 (SoluCORTEF INJ) 25 mg BID IV PUSH 03/31/17 21:00 04/02/17 10:05 (Roxicodone Intensol Liq) 5 mg Q4H PO 04/01/17 18:00 04/02/17 10:06 (Duoneb Neb) 1 ampule Q4HR NEB NEB 04/02/17 00:00 04/02/17 11:35 (Levemir Inj) 7 units HS SQ 04/02/17 21:00 UNV (Levemir Inj) 10 units DAILY SQ 04/03/17 09:00 UNV (Levemir Inj) 3 units ONCE SQ 04/02/17 11:45 UNV (NovoLOG SUPPLEMENTAL SCALE) 1 ACHS SLIDING SCALE SQ 04/02/17 12:00 UNV Date of Insertion: Mar 03, 2017 Line: Central Venous Catheter Side: Right Location: Internal, Jugular A/P Problem List: (1) Transverse myelitis ICD Code: G37.3 - Acute transverse myelitis in demyelinating disease of central nervous system Status: Acute (2) Septic shock ICD Code: A41.9 - Sepsis, unspecified organism; R65.21 - Severe sepsis with septic shock Status: Resolved (3) HCAP (healthcare-associated pneumonia) ICD Code: J18.9 - Pneumonia, unspecified organism (4) Acute respiratory failure with hypoxia and hypercarbia ICD Code: J96.01 - Acute respiratory failure with hypoxia; J96.02 - Acute respiratory failure with hypercapnia Status: Resolved (5) Hyperlipidemia ICD Code: E78.5 - Hyperlipidemia, unspecified Status: Chronic (6) HTN (hypertension) ICD Code: I10 - Essential (primary) hypertension (7) DVT of lower extremity, bilateral ICD Code: I82.403 - Acute embolism and thrombosis of unspecified deep veins of lower extremity, bilateral (8) Diabetes mellitus with hyperglycemia ICD Code: E11.65 - Type 2 diabetes mellitus with hyperglycemia (9) Hypocalcemia ICD Code: E83.51 - Hypocalcemia (10) Hypernatremia ICD Code: E87.0 - Hyperosmolality and hypernatremia (11) Hypokalemia ICD Code: E87.6 - Hypokalemia (12) Acute metabolic encephalopathy ICD Code: G93.41 - Metabolic encephalopathy (13) Quadriparesis ICD Code: G82.50 - Quadriplegia, unspecified Status: Acute (14) BREEZY (acute kidney injury) ICD Code: N17.9 - Acute kidney failure, unspecified (15) Diarrhea ICD Code: R19.7 - Diarrhea, unspecified (16) Abdominal pain ICD Code: R10.9 - Unspecified abdominal pain (17) Hypoglycemia ICD Code: E16.2 - Hypoglycemia, unspecified (18) Urinary retention ICD Code: R33.9 - Retention of urine, unspecified (19) Acute hypoxemic respiratory failure ICD Code: J96.01 - Acute respiratory failure with hypoxia (20) Sepsis ICD Code: A41.9 - Sepsis, unspecified organism Assessment and Plan Acute metabolic encephalopathy- persistent Quadriparesis secondary to suspected transverse myelitis Recurrent falls Pain secondary to retroperitoneal hematoma. Suspected transverse myelitis. Received methylprednisolone 250 mg IV every 6 hours 01/27-02/02, started back on hydrocortisone 02/21/17, initially tapering to 50 mg IV every 8 hours starting received 1 dose at 2100 prior to becoming hypotensive. weaning hydrocortisone taper and stopped 03/09. Resumed hydrocortisone 50mg IV Q6hrly on 03/14 as patient became hypotensive following intubation on 03/13 requiring levophed. LP 01/26 and 02/01. CSF culture negative 01/26, 02/01 Oligoclonal bands negative. CSF/serum IgG index is not elevated. VDRL nonreactive. Cryptococcal antigen negative. Brain MRI 01/23 no acute stroke. Few scattered lacunar infarcts of the brainstem. Moderate chronic white matter changes. MRI cervical/thoracic spine- mild spinal stenosis C3/C4 to C6/C7. No cord compression. RPR negative. Neurology has been following, Dr. Crenshaw. Repeat CT brain 02/10 - negative. - Continue PT/OT. - Continue pain control with a bowel regimen. Reduce dose of oxycodone as pt has been lethargic. Acute hypoxemic respiratory failure Healthcare associated pneumonia/Aspiration Pneumonia Right-sided chest tube placed for pleural effusion. VQ scan 02/10 low probability for PE. CT chest 02/10 - left lower lobe collapse and consolidation. CT chest 02/27 revealed right greater than left pleural effusions. Extubated 02/23. Intubated 02/28. Extubated 03/11, Reintubated on . 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 Failed attempt to wean successfully due to volume overload and multiple organ failure. underwent perc tracheostomy 03/14. - pulmonology following for trach care, downsized trach. Capping trial ordered. - Albuterol/ipratropium aerosols every 6 hours with albuterol aerosols every 2 hours prn. Severe sepsis - resolved. Systolic heart failure likely chronic with ejection fraction 20-25% Hyperlipidemia History of hypertension Mild TR Sinus tachycardia Elevated troponin likely type II demand ischemia Restarted on Levophed on 03/09 following intubation, titrated off after starting hydrocortisone. Started hydrocortisone stress dose on 03/14 (as patient has been on steroids and was just tapered off on 03/09.) Patient had been hypotensive twice when attempting to wean off stress dose hydrocortisone in the past. EKG with nonspecific ST-T changes. 2-D echocardiogram 01/11 revealed EF 20-25%. Mild TR. Pulmonary arterial pressures were normal around 20. Troponin 6.55 on 03/02. - Likely will need stress test of heart once stable. Cannot anticoagulate due to retroperitoneal hematoma at the present time. - Currently on atenolol 25 mg twice a day. Continue amlodipine, increased to 10 mg daily. - As needed Nitropaste, labetalol and hydralazine for hypertension. - Atorvastatin 10 mg by mouth daily for dyslipidemia. - Lasix on hold. Large right retroperitoneal hematoma Erosive esophagitis Adematous/hyperplastic colon polyps Severe acute protein calorie malnutrition Nausea/vomiting - resolved. Diarrhea Gastritis Diverticulosis Internal and external hemorrhoids Hiatal hernia Elevated lipase 02/27 CT chest/abdomen and pelvis - 9.4 x 7.5 renal and 16 x 12 cm right psoas muscle hematoma. Fluid around liver and spleen. Right-sided nephrolithiasis. CTA abdomen 02/28 - possible blushing around iliac/lumbar vessels. Discussed with IR. s/p attempted embolization. CT abdomen and pelvis 02/10 atrophic left kidney. Bilateral inguinal hernias fat-containing. Nonobstructing 12 mm right kidney stone. Repeat CT abd/pelvis did not show evidence of obstruction. EGD/ Colonoscopy-02/22/17 showed gastritis esophagitis, hiatal hernia, diverticulosis and multiple polyps in descending colon and sigmoid which were snared biopsied. Biopsy pending. Dr. Lewis consulted for intervention if needed for elevated IAP. will continue to check as needed. Status post PEG tube placement by . - Lansoprazole 30 mg twice a day for GI prophylaxis. - Discontinued metoclopramide 5 milligrams IV every 8 hours today. - Dietary consult placed for appropriate tube feeding. Acute kidney injury in the setting of Chronic kidney disease stage 3-4 History of uric acid kidney stones with prior stent BPH Nonfunctioning left kidney Acute intravascular volume overload Hypokalemia/ Hyperkalemia Sloan placed due to urinary retention and worsening creatinine Maintain Sloan secondary to urinary retention Monitor intake and output q1hr. Monitor electrolytes. RIOS/SPEP negative. 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 Recommended nephrostomy tube if obstruction. Nephrology consulted, hemodialysis per nephrology. Making urine. Due to acute illness holding tamsulosin 0.4 mg by mouth daily for BPH. - Hyperkalemia resolved. - decreased urine output, creatinine increased 04/02. Renal US pending, reconsulting nephrology. Septic shock- resolved. Abscess and Suppurative thrombophlebitis left upper extremity MSSA bacteremia Klebsiella UTI ESBL positive Acute aspiration pneumonia/HCAP Previously treated with Bactrim, ertapenem, intermittent vancomycin, nafcillin. Blood cultures 2, UA ESBL positive Klebsiella UTI. Sputum 03/14 - Pseudomonas came back resistant to imipenem. Repeat blood cultures 2 and sputum 03/08 pending. Urine negative. - Switched from meropenem to ceftazidime on 03/19, vancomycin IV 1 dose given on 03/19 and 03/22. Follow up with ID. Acute blood loss anemia DVT, bilateral posterior tibial vein, IVC filter Septic thrombophlebitis with occlusive thrombus mid cephalic and basilic vein side Received 10 PRBC, 14 FFP, 2 platelets, 1 cryo-02/28 Received 3 units PRBCs Serial hemoglobins every 6 hours Recheck coags Ultrasound 01/23/17 - Bilateral lower extremity with occlusive posterior tibial vein DVTs. Heparin was initially started for DVT but was placed on hold due to LP with suspected traumatic tap. Currently holding full anticoagulation with enoxaparin 100 mg IV twice a day due to anemia as of 02/26. IVC filter was placed 01/25/17. Ultrasound LUE 02/10 occlusive thrombus mid cephalic vein, basilic veins. Transfuse 3 units PRBCs 02/27. Transfuse 2 units PRBCs 03/01. Transfused 1 unit PRBCs on 03/14. - follow CBC. Stable. Diabetes mellitus Hypoglycemia History of prior adrenal insufficiency with shock Gout EGD colonoscopy completed 02/22. Gastritis and esophagitis, colon polyps. Started Hydrocortisone 100 mg every 8 hours 02/21/17 (Recent high dose steroids use now hypotensive, hypoglycemic), steroids had been tapered off. Resumed stress dose steroids on 03/16 as patient back on Levophed for pressor support after intubation. - wean hydrocortisone to 25 mg IV every twice a day. - Accu-Cheks to maintain euglycemia Novulin R every 4 hours. Low Regimen. Currently on insulin detemir 10 units daily, 7 units HS. Right distal ulna fracture. Dr. Nathan with orthopedics has evaluated and recommended nonoperative management. - Right wrist splint in place. Hypernatremia S/t NPO status. - follow BMP. - Change D5W to free water. Stable. PROPH: Lansoprazole 30 mg twice a day twice a day for stress ulcer prophylaxis. Has IVC filter. Therapeutic enoxaparin currently on hold for retroperitoneal hematoma Discharge Planning Awaiting placement Problem Qualifiers (1) Hyperlipidemia: Qualified Codes: E78.5 - Hyperlipidemia, unspecified (2) HTN (hypertension): Qualified Codes: I10 - Essential (primary) hypertension (3) Diabetes mellitus with hyperglycemia: Qualified Codes: E11.65 - Type 2 diabetes mellitus with hyperglycemia (4) Diarrhea: Qualified Codes: A09 - Infectious gastroenteritis and colitis, unspecified (5) Abdominal pain: Qualified Codes: R10.84 - Generalized abdominal pain (6) Sepsis: Qualified Codes: A41.9 - Sepsis, unspecified organism Benjamin Christian DO Apr 02, 2017 12:05
[2017-04-02] MEDS ORDERED: INSULIN DETEMIR 100 UNITS/ML VIAL SQ ONE (12:15)
--- NOTE | 2017-04-02 15:27 | HHI.HCPN ---
Reason for visit a. To assist with evaluation and management of symptoms including: shortness of breath, pain, debility b. To assist medical decision maker(s) with: better understanding of current medical conditions; weighing benefits/burdens of medical treatment options; making medical treatment decisions. Subjective/Interval History Patient seen in his room, very sleepy, lethargic, easily arousable and goes right back to sleep. Patient denies pain , though he facially grimaces when his hand is touched. Patient`s Tmax was 100.3 degrees F. SBP low 100s-160s. Patient O2 saturation high 90s on T-Piece 50%. Patient`s pain medication dose decreased 04/01/17 due to lethargy. Laboratory workup revealing WBC 17.4, hemoglobin 9.1, hematocrit 28.7, platelet count 130, sodium 136, potassium 3.8, BUN/creatinine 68/1.45, random glucose 330 , calcium 7.6, magnesium 1.8. Nephrology Dr. Liao reconsulted for reevaluation and management of increased creatinine and decreased urine output. Renal ultrasound ordered today. Capping of tracheostomy attempted yesterday and patient did not do well. Case discussed with bedside RN Nadia. Patient's sister Deb visiting at bedside. . Family/friend interactions Patient's sister Deb at bedside. . Advance Directives Living Will: Never completed Health Care Surrogate: Never completed Durable Power of Ladies' Locker Room Attendant: Never completed Advance Directive Specifics Documented care wishes: No known documented care wishes have been completed. . Objective Vital Signs Date Time Temp Pulse Resp B/P (MAP) Pulse Ox O2 Delivery O2 Flow Rate FiO2 04/02/17 12:08 98.7 93 18 161/80 (107) 100 04/02/17 08:31 99.0 91 17 155/76 (102) 100 04/02/17 08:26 100 T-piece 50 04/02/17 05:14 98.8 95 19 130/61 (84) 99 04/02/17 01:14 99.3 98 19 106/57 (73) 96 04/02/17 00:15 100.3 97 19 91/54 (66) 96 04/01/17 21:36 96 T-piece 50 04/01/17 20:20 93 T-Piece 35 04/01/17 20:16 99.9 106 20 110/62 (78) 91 04/01/17 20:16 T-Piece 28.00 04/01/17 20:15 88 04/01/17 18:54 18 04/01/17 18:25 96 T-piece 28 04/01/17 15:00 18 Intake & Output 04/02/17 04/02/17 07:00 19:00 Intake Total 935 ml Output Total 300 ml Balance 635 ml IV Total 350 ml Tube Feeding 585 ml Output Urine Total 300 ml Bladder Scan Volume Amount 25 ml Physical Exam CONSTITUTIONAL/GENERAL: This is an ill-looking, lethargic patient, trached on T piece, 50% TUBES/LINES/DRAINS: PEG tube, #6Tracheostomy, PIVs, FC SKIN: No jaundice. Ecchymoses on upper extremities. Sacral pressure wound and L heel pressure injury. Wound to anterior neck - tracheostomy insertion area. Afebrile. Not diaphoretic. HEAD: Atraumatic. Normocephalic. EYES: Pupils equal and round, slight reaction.No scleral icterus. No injection or drainage. Fundi not examined. ENT: Trached. Nose without bleeding or purulent drainage. Moist oral mucosa. NECK: Trachea midline. #6 Tracheostomy midline. Wound to anterior neck - tracheostomy insertion area CARDIOVASCULAR: Regular rate and rhythm without murmurs, gallops, or rubs. No JVD. RESPIRATORY/CHEST: Symmetric, unlabored respirations. rhonchi to auscultation. Breath sounds equal bilaterally. Tracheostomy on T-bruce 28%saturating in the high 90s. GASTROINTESTINAL: Abdomen soft, non-tender, nondistended. No guarding. Bowel sounds present. Nepro-Goal infusing at 55ml/hr GENITOURINARY: Without palpable bladder distension. Sloan catheter in with clear urine. Scrotal edema. MUSCULOSKELETAL: Gout tophi to fingers, knees, elbows and both ankles. Trace edema to all 4 extremities. NEUROLOGICAL: Trached. Patient is sleeping, lethargic and easily arousable, followed simple commands with all 4 extremities and goes right back to sleep. PSYCHIATRIC: No obvious anxiety/depression. no apparent hallucinations or other psychotic thought process. . Diagnostic Tests Laboratory Laboratory Tests Test 03/31/17 04:53 04/01/17 05:06 04/02/17 06:40 White Blood Count 18.4 TH/MM3 (4.0-11.0) 17.2 TH/MM3 (4.0-11.0) 17.4 TH/MM3 (4.0-11.0) Red Blood Count 3.42 MIL/MM3 (4.50-5.90) 3.39 MIL/MM3 (4.50-5.90) 3.23 MIL/MM3 (4.50-5.90) Hemoglobin 9.5 GM/DL (13.0-17.0) 9.8 GM/DL (13.0-17.0) 9.1 GM/DL (13.0-17.0) Hematocrit 30.8 % (39.0-51.0) 30.6 % (39.0-51.0) 28.7 % (39.0-51.0) Mean Corpuscular Volume 90.1 FL (80.0-100.0) 90.2 FL (80.0-100.0) 88.7 FL (80.0-100.0) Mean Corpuscular Hemoglobin 27.9 PG (27.0-34.0) 28.9 PG (27.0-34.0) 28.3 PG (27.0-34.0) Mean Corpuscular Hemoglobin Concent 31.0 % (32.0-36.0) 32.1 % (32.0-36.0) 31.9 % (32.0-36.0) Red Cell Distribution Width 16.5 % (11.6-17.2) 16.7 % (11.6-17.2) 16.0 % (11.6-17.2) Platelet Count 148 TH/MM3 (150-450) 131 TH/MM3 (150-450) 130 TH/MM3 (150-450) Mean Platelet Volume 9.8 FL (7.0-11.0) 10.2 FL (7.0-11.0) 9.9 FL (7.0-11.0) Hematology Comments Blood Urea Nitrogen 58 MG/DL (7-18) 57 MG/DL (7-18) 68 MG/DL (7-18) Creatinine 1.00 MG/DL (0.60-1.30) 0.99 MG/DL (0.60-1.30) 1.45 MG/DL (0.60-1.30) Random Glucose 157 MG/DL (74-106) 108 MG/DL (74-106) 330 MG/DL (74-106) Calcium Level 7.7 MG/DL (8.5-10.1) 7.7 MG/DL (8.5-10.1) 7.6 MG/DL (8.5-10.1) Magnesium Level 2.0 MG/DL (1.5-2.5) 1.9 MG/DL (1.5-2.5) 1.8 MG/DL (1.5-2.5) Sodium Level 145 MEQ/L (136-145) 142 MEQ/L (136-145) 136 MEQ/L (136-145) Potassium Level 3.9 MEQ/L (3.5-5.1) 3.3 MEQ/L (3.5-5.1) 3.8 MEQ/L (3.5-5.1) Chloride Level 107 MEQ/L (98-107) 105 MEQ/L (98-107) 101 MEQ/L (98-107) Carbon Dioxide Level 29.4 MEQ/L (21.0-32.0) 29.8 MEQ/L (21.0-32.0) 28.2 MEQ/L (21.0-32.0) Anion Gap 9 MEQ/L (5-15) 7 MEQ/L (5-15) 7 MEQ/L (5-15) Estimat Glomerular Filtration Rate 76 ML/MIN (>89) 77 ML/MIN (>89) 49 ML/MIN (>89) Result Diagram: 04/02/17 0640 04/02/17 0640 Microbiology Microbiology Date/Time Source Procedure Growth Status 04/01/17 12:55 Sputum Oral Tracheal Aspirate Gram Stain - Final Resulted 04/01/17 12:55 Sputum Culture - Preliminary Pseudomonas Species Resulted Procedures 01/25/2017- Retrievable IVC Filter placement 01/26/17-lumbar puncture with fluoroscopy-by interventional radiology 02/01/17- lumbar puncture fluoroscopy by interventional radiology 02/10/17- Endotracheal Intubation 02/10/17-left IJ central venous line placed 02/10/17-left femoral arterial line placed 02/11/17-Diagnostic and therapeutic bronchoscopy with bronchoalveolar lavage 02/11/17-Left upper extremity incision and debridement with excision of septic cephalic vein 02/13/17- Extubated 02/20/17- endotracheal intubation 02/20/17- Left subclavian central line placement 02/20/17-Right radial A-line placement 02/22/17-EGD/colonoscopy 02/28/17-right radial a line 02/28/17- Endotracheal intubation 02/28/17- right sided introducer catheter placement 02/28/17- Right IJ central line placement 02/28/17-Right chest tube placement 02/28/17- Embolization of inferior and superior sacral branches of right internal iliac artery 03/01/17- Hemodialysis access catheter 03/03/17-Right IJ central line placement 03/11/17-Extubated 03/13/17- Endotracheal intubation 03/14/17-Tracheostomy placement 03/15/17-PEG tube placement . Assessment and Plan Disease Oriented Problem List: (1) Acute respiratory failure (2) Septic shock (3) Aspiration pneumonia (4) Acute renal failure (5) CKD (chronic kidney disease) stage 3, GFR 30-59 ml/min (6) Cardiomyopathy (7) DVT of lower extremity, bilateral (8) Thrombophlebitis arm (9) Diabetes mellitus (10) Gout (11) HTN (hypertension) (12) Hyperlipidemia Symptom Scale: (1) Shortness of breath 0-10 Scale: Unable to quantify Comment: Trach downsized to #6. Currently trached on T piece 50% . (2) Debility 0-10 Scale: Unable to quantify Comment: Progressive. . (3) Pain 0-10 Scale: Unable to quantify Comment: History of falls, gout, arthritis, and currently bedbound. . Pertinent Non-Medical Issues Psychosocial:Patient was born and raised in [place], [place]. Patient was once for 20 years, now and has 2 adult sons. 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 He recently resigned due to failing health. Spiritual: No rastafarian affiliation Legal: Per [place] statutes, in the absence of written advanced directives healthcare proxy decision making falls to the patient's 2 adult children. Patient's son (Davie) lives locally and wishes to participate in the role of the healthcare proxy decision maker. Palliative care has attempted to contact Arnel, has not call back. Patient`s sister Deb and patients brother verbalized that they have been updating Arnel on patient`s medical status. Ethical issues impacting care: No known ethical issues impacting care at this time. . Important Contacts Son-Davie Kerr - Son-Arnel Kerr- -cell -home Sister-Deb Curry . Prognosis Mr Kerr is a 62 years old male with a past medical history of hypertension, asthma, diabetes, hyperlipidemia, chronic kidney disease and gout. Patient presented to the ED on 01/22/17 complaining of bilateral knee and right arm pain after a mechanical fall 4 or 5 days prior to coming to the ER. Clinical course complicated with increased weakness leading to numerous diagnostic work ups for possible transverse myelitis, DVTs, retroperitoneal hematoma, aspiration pneumonia, intubation x 4 times, septic and hemorrhagic shock requiring support with pressors and multiple pRBC, FFP transfusions as well as platelets and cryo , renal failure requiring hemodialysis and sacral wound Given ongoing comorbidities, and prolonged hospitalization, patient remains at risk for further complications, deterioration and decline. Code Status: Full Code Plan PLAN: Legal decision maker: Patient is currently intubated, sedated on a mechanical ventilation and is not able to make any medical decisions for himself at this time. It is unclear if patient will regain capacity to make medical decisions at this time. Patient has 2 adult sons Davie Kerr and Arnel Kerr. According to [place] Statute, his two aforementioned sons will serve as his health care proxys. Patient`s son Davie is acting in the role of HCP decision maker independently at this time given that he is the one who is reasonably available for consultation. Goals: 04/02/17- Remain Aggressive. Patient lethargic and sleeping more. Patient was denied at [facility]. CODE STATUS: Full Code SYMPTOMS: * Shortness of breath: Multifactorial. Patient has had aspiration pneumonia. Patient has been intubated 4 times this hospitalization. Patient has a tracheostomy. Now requiring T-Bruce 50%. Patient on duonebs. Patient also on Hydrocortisone 50mg q 6 hours. Or Rn following. Trach downsized to a 6. Capping attempted and patient did not do well per bedside RN. Wound care following. * Pain: Patient presented initially complaining of pain to right wrist and bilateral knees after a mechanical fall. Patient has a history of gout, arthritis, multiple falls and is currently bedbound. Patient`s pain medication dose decreased from Oxycodone 10mg to Oxycodone 5mg q 4 hours ATC. Patient facially grimacing when his hands are touched lightly. Noticeable edema to metacarpal joints. Patient also on Hydrocortisone. * Debility: Progressive. Patient has had decline in his health for the past 4 months, including progressively increased weakness and difficulty ambulating and prolonged hospitalization with multiple setbacks. Patient remains at high risk for further physical deconditioning and debility. PT and OT following with patient. PT and OT following. Patient will benefit from getting OOB to a stretcher chair . PT and OT following. Recommending Speech therapy consultation. Palliative care will continue to follow the patient during hospital course as condition evolves, to assist patient/decision-maker with understanding of their medical conditions, weighing benefits/burdens of treatment options, for clarification of goals of treatment. Additionally will assist with any symptoms of palliative concern. . Attestation To help prompt me to consider important information that might be impacting today's encounter and assessment, information from prior notes written by myself or my colleagues may have been "brought forward" into today's note. My signature on this note, however, is an attestation that I personally performed the exam, history, and/or decision-making noted today, and, unless otherwise indicated, the interactions with patient, family, and staff as well as the review of records all occurred today. I also attest that the listed assessment and stated plan reflect my best clinical judgment today based on the combination of historical information, prior notes, and today's exam/ interactions. When time spent is documented, it refers only to time spent today by the signer, or if indicated, combined time spent today by collaborating physician/nurse practitioner. . Aftab Cartwright Apr 02, 2017 15:27
--- NOTE | 2017-04-02 17:33 | HHI.NPPN ---
Subjective History of Present Illness 61-year-old with history of urinary stone Additional Remarks Patient had trach on trach collar O2 , not in distress. Review of Systems General Constitutional: Fatigue Objective Data Data 04/02/17 04/03/17 19:00 07:00 Intake Total 0 ml Output Total 200 ml Balance -200 ml Intake Oral 0 ml Output Urine Total 200 ml Vital Signs Date Time Temp Pulse Resp B/P (MAP) Pulse Ox O2 Delivery O2 Flow Rate FiO2 04/02/17 16:57 98.6 89 18 153/72 (99) 95 04/02/17 12:08 98.7 93 18 161/80 (107) 100 04/02/17 08:31 99.0 91 17 155/76 (102) 100 04/02/17 08:26 100 T-piece 50 04/02/17 05:14 98.8 95 19 130/61 (84) 99 04/02/17 01:14 99.3 98 19 106/57 (73) 96 04/02/17 00:15 100.3 97 19 91/54 (66) 96 04/01/17 21:36 96 T-piece 50 04/01/17 20:20 93 T-Piece 35 04/01/17 20:16 99.9 106 20 110/62 (78) 91 04/01/17 20:16 T-Piece 28.00 04/01/17 20:15 88 04/01/17 18:54 18 04/01/17 18:25 96 T-piece 28 -: 04/02/17 0640 04/02/17 0640 Physical Exam General Appearance: Pale Eyes Eye Exam: Pupils Equal Throat Throat Exam: Oral Mucosa Ord & Moist Neck Neck Exam: Neck Supple Pulmonary Resp Exam: Clear Bilaterally Cardiology CV Exam: Normal Sinus Rhythm Gastrointestinal/Abdomen GI Exam: Non-Tender, Distended Extremeties Extremities Exam: Moderate Edema, Pitting Edema Neurologic Neuro Exam: Awake Assessment/Plan Problem List: (1) Acute renal failure ICD Codes: N17.9 - Acute kidney failure, unspecified Status: Acute Plan: Patient developed Hypotension,sepsis staph aureus respiratory failure and increase WBC. 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 infection playing a role has colonize airway Pseudomonas growing (2) CKD (chronic kidney disease) stage 3, GFR 30-59 ml/min ICD Codes: N18.3 - Chronic kidney disease, stage 3 (moderate) Status: Chronic Plan: Ultrasound revealed chronic kidney disease there is no kidney stones (3) Diabetes ICD Codes: E11.9 - Type 2 diabetes mellitus without complications Plan: Continue to monitor (4) Distal end of ulna fracture, closed ICD Codes: S52.609A - Unspecified fracture of lower end of unspecified ulna, initial encounter for closed fracture Status: Acute Plan: Orthopedic is following Problem Qualifiers (1) Acute renal failure: Qualified Codes: N17.9 - Acute kidney failure, unspecified Laura Liao MD Apr 02, 2017 17:33
[2017-04-02] MEDS: FUROSEMIDE 40 MG/4 ML VIAL IV PUSH SCH (18:00)
--- NOTE | 2017-04-02 18:03 | RADRPT ---
EXAM DATE/TIME: 04/02/2017 16:59 [facility] COMPARISON: MRI LUMBAR SPINE W/O CONTRAST, January 23, 2017, 17:01. US KIDNEY/RENAL/BLADDER, January 23 7, 8:53. INDICATIONS : Increased lab values. MEDICAL HISTORY : Hypertension. Renal calculi. Arthritis. Apnea. Dyspnea. Abdominal pain. Nausea/vomiting. Renal diseas e. Gout. Paresthesia. Diabetes. Gait problems. ESBL. SURGICAL HISTORY : Nasal surgery. Stents in kidneys for stones. ENCOUNTER: Initial ACUITY: 1 day PAIN SCORE: 7/10 LOCATION: Bilateral flank MEASUREMENTS: RIGHT KIDNEY: 14.4 x 6.9 x 6.9 cm LEFT KIDNEY: NOT VISUALIZED FINDINGS: RIGHT KIDNEY: The right kidney is normal in size. The renal cortex appears normal. The multiple echogenic foci with in the central renal pelvis was shadowing. This includes a large 2.8 cm focal area of echogenicity wi th shadowing. Hydronephrosis is not seen. LEFT KIDNEY: The left kidney could not be imaged secondary to patient being intubated, unable to be turned and jason arently combative and uncooperative. BLADDER: The bladder is decompressed and not evaluated. CONCLUSION: Limited exam with the left kidney being unable to be evaluated in the bladder not distended. There do appear to be multiple shadowing stones at the right kidney without hydronephrosis. Angelo Manzo MD on April 02, 2017 at 17:56 Board Certified Radiologist. This report was verified electronically.
[2017-04-02] MEDS ORDERED: INSULIN DETEMIR 100 UNITS/ML VIAL SQ SCH (21:00)
[2017-04-02] MEDS: ALBUMIN 25% INJ 100 ML IV SCH (22:27)
[2017-04-02] MEDS: ATORVASTATIN 10 MG TAB PO SCH (22:28)
[2017-04-02] MEDS: TAMSULOSIN HCL 0.4 MG CAP PO SCH (22:29)
[2017-04-03] VITALS (9 sets, daily range): BP systolic 120–162; BP diastolic 67–75; PULSE 88–98; RESP 18–22; TEMP 97.2–98.4; O2SAT 94–99
[2017-04-03] MEDS: RESP: ALBUTEROL 2.5 MG/IPRATROPIUM 0.5 MG NEB (SCH) NEB ×6 (00:45→19:44)
[2017-04-03] MEDS: oxyCODONE HCL ORAL CONC 5 MG/0.25 ML SYRINGE PO SCH ×6 (01:31→22:16)
[2017-04-03] MEDS: FREE WATER G-TUBE SCH ×6 (01:31→21:36)
[2017-04-03] MEDS: CHLORHEXIDINE 0.12% (ORAL KIT) 15 ML CUP MT SCH ×2 (08:00→21:35)
[2017-04-03] MEDS: INSULIN ASPART SUPPLEMENTAL SCALE SQ SCH ×4 (08:00→21:34)
[2017-04-03 08:04] LABS: HEMATOCRIT 27.9 % (39.0-51.0); MEAN CELL VOLUME 87.9 FL (80.0-100.0); MEAN CORPUSCULAR HEMOGLOBIN 28.5 PG (27.0-34.0); MEAN CORPUSCULAR HGB CONC 32.4 % (32.0-36.0); PLATELET COUNT 132 TH/MM3 (150-450); RED BLOOD COUNT 3.18 MIL/MM3 (4.50-5.90); REVIEW FLAG FINAL; WHITE BLOOD COUNT 17.1 TH/MM3 (4.0-11.0)
[2017-04-03 08:29] LABS: BICARBONATE 28.7 MEQ/L (21.0-32.0); MAGNESIUM 1.9 MG/DL (1.5-2.5); POTASSIUM 3.8 MEQ/L (3.5-5.1)
[2017-04-03] MEDS ORDERED: INSULIN DETEMIR 100 UNITS/ML VIAL SQ SCH (09:00)
[2017-04-03] MEDS: SODIUM CHLORIDE 0.9% FLUSH 10 ML FLUSH IV FLUSH SCH ×3 (09:00→21:36)
[2017-04-03] MEDS: LACTOBACILLUS ACIDOPHILUS TAB PO SCH ×3 (09:23→16:21)
[2017-04-03] MEDS: TAMSULOSIN HCL 0.4 MG CAP PO SCH ×2 (09:23→21:31)
[2017-04-03] MEDS: ATENOLOL 25 MG TAB PO SCH ×2 (09:23→21:31)
[2017-04-03] MEDS: LANSOPRAZOLE SOLUTAB 30 MG TAB NG SCH ×2 (09:23→21:31)
[2017-04-03] MEDS: HYDROCORTISONE SOD SUCCINATE 100 MG VIAL IV PUSH SCH ×2 (09:25→21:33)
[2017-04-03] MEDS: FUROSEMIDE 40 MG/4 ML VIAL IV PUSH SCH ×2 (09:26→16:21)
[2017-04-03] MEDS: ALBUMIN 25% INJ 100 ML IV SCH ×2 (09:28→21:34)
--- NOTE | 2017-04-03 10:21 | HHI.PR ---
Subjective Remarks Follow-up for metabolic encephalopathy, transverse myelitis, acute respiratory failure, severe sepsis. Patient is resting in bed and answers appropriately. However cannot verbalize well. He denies any fever or chills. Tolerating tube feed well. Objective Vitals Vital Signs Date Time Temp Pulse Resp B/P (MAP) Pulse Ox O2 Delivery O2 Flow Rate FiO2 04/03/17 08:00 97.9 93 19 130/74 (92) 96 04/03/17 07:57 98 35 04/03/17 05:17 98.1 91 20 162/74 (103) 97 04/03/17 02:45 88 04/03/17 02:31 18 04/03/17 01:11 98.4 89 18 157/72 (100) 94 04/03/17 01:06 95 T-Piece 35 Humidified 04/02/17 22:13 97 T-Piece 5.00 35 Humidified 04/02/17 21:49 96 T-piece 6.00 35 04/02/17 20:37 98.3 87 18 155/70 (98) 96 04/02/17 16:57 98.6 89 18 153/72 (99) 95 04/02/17 12:08 98.7 93 18 161/80 (107) 100 I/O 04/02/17 04/02/17 04/02/17 04/03/17 04/03/17 04/03/17 07:00 15:00 23:00 07:00 15:00 23:00 Intake Total 935 ml 0 ml 400 ml 400 ml Output Total 300 ml 800 ml 450 ml Balance 635 ml -800 ml 400 ml -450 ml 400 ml Intake Oral 0 ml IV Total 350 ml Tube Feeding 585 ml Other 400 ml 400 ml Output Urine Total 300 ml 200 ml 450 ml Stool Total 600 ml Bladder Scan Volume Amount 25 ml Result Diagram: 04/03/17 0645 04/03/17 0645 Imaging Last Impressions Renal Ultrasound 04/02/17 0000 Signed Impressions: Service Date/Time: Sunday, April 02, 2017 16:59 - CONCLUSION: Limited exam with the left kidney being unable to be evaluated in the bladder not distended. There do appear to be multiple shadowing stones at the right kidney without hydronephrosis. Angelo Manzo MD Chest X-Ray 04/01/17 0000 Signed Impressions: Service Date/Time: Saturday, April 01, 2017 23:42 - CONCLUSION: Moderate-sized left pleural effusion. Tracheostomy tube in good position. Lungs are grossly clear. Duy Genao MD Wrist X-Ray 03/27/17 0000 Signed Impressions: Service Date/Time: Monday, March 27, 2017 13:21 - CONCLUSION: 1. No acute fracture is identified. A portion of the previously documented distal ulna fracture remains visualized. 2. 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 Angelo Allen MD Aortography 02/28/17 0000 Signed Impressions: Service Date/Time: Tuesday, February 28, 2017 08:01 - CONCLUSION: 1. Active hemorrhage from distal right lateral sacral and iliolumbar branches successfully coil and Gelfoam embolized, as above. Juan Bhakta MD Abdomen/Pelvis CT 02/28/17 0000 Signed Impressions: Service Date/Time: Tuesday, February 28, 2017 06:51 - CONCLUSION: 1. The right retroperitoneal hematoma has increased in size, as above. There are 2 serpiginous arterially enhancing structures visualized, one in the right psoas muscle and another extending into the hematoma at the right iliac fossa. These could represent sites of continued active bleeding. 2. Stable moderate size left and small right pleural effusion with associated compressive atelectasis. 3. Stable small volume of free fluid in the abdomen and pelvis. There is also anasarca. The findings concerning the retroperitoneal hematoma were discussed with Dr. Aguiar via telephone at approximately 7: 10 AM on 02/28/2017. Angelo Allen MD Chest CT 02/27/17 0000 Signed Impressions: Service Date/Time: Monday, February 27, 2017 18:12 - CONCLUSION: 1. Bilateral pleural effusions with bibasilar atelectasis, left greater than right. Tom Sanchez MD Abdomen X-Ray 02/26/17 0000 Signed Impressions: Service Date/Time: Sunday, February 26, 2017 14:52 - CONCLUSION: 1. Nonobstructive bowel gas pattern. Juan Bhakta MD Upper Extremity Ultrasound 02/10/17 0000 Signed Impressions: Service Date/Time: Friday, February 10, 2017 18:46 - CONCLUSION: Occlusive thrombus in the cephalic and basilic veins. Benjamin Person MD Lung Scan-V Nuclear Medicine 02/10/17 0000 Signed Impressions: Service Date/Time: Friday, February 10, 2017 22:17 - CONCLUSION: Low probability pulmonary embolism. Candido Patton MD Head CT 02/10/17 0000 Signed Impressions: Service Date/Time: Friday, February 10, 2017 23:51 - CONCLUSION: Negative noncontrast CT brain. Candido Patton MD Lumbar Puncture Fluoroscopy 02/01/17 0000 Signed Impressions: Service Date/Time: January 09:35 - CONCLUSION: Uncomplicated fluoroscopically guided lumbar puncture. CSF was clear. Nabeel Peralta MD Head Magnetic Resonance Angiography 01/27/17 0000 Signed Impressions: Service Date/Time: Friday, January 27, 2017 10:33 - CONCLUSION: No intracranial vascular abnormality is identified. There is no aneurysm visualized. Angelo Allen MD IVC Filter Placement X-Ray 01/25/17 0000 Signed Impressions: Service Date/Time: January 10:29 - CONCLUSION: Uncomplicated inferior vena cava filter placement as above. Yung Fowler MD Thoracic Spine MRI 01/24/17 0000 Signed Impressions: Service Date/Time: Tuesday, January 24, 2017 22:29 - CONCLUSION: 1. Mild degenerative spondylosis most prominently at T11-L1 with slight effacement of the anterior thecal sac and left lateral recess. No significant neural foraminal stenosis. 2. No acute fracture. Juan Bhakta MD Lumbar Spine MRI 01/23/17 0000 Signed Impressions: Service Date/Time: Monday, January 23, 2017 17:01 - CONCLUSION: 1. At L4-5 is a broad-based disc protrusion with severe central canal and lateral recess stenosis and flattening of the exiting right L4 nerve root. 2. L5-S1 there is a disc protrusion and moderate stenosis with flattening of the exiting L5 nerve roots bilaterally. 3. At L3-4 there is a moderate to severe central stenosis and lateral recess stenosis with mild foraminal stenosis. 4. No acute fracture or spondylolisthesis. Trace Holloway MD Lower Extremity Ultrasound 01/23/17 0000 Signed Impressions: Service Date/Time: Monday, January 23, 2017 09:53 - CONCLUSION: Bilateral focal lower extremity DVT involving the posterior tibial veins. Angelo Garrido MD Cervical Spine MRI 01/23/17 Signed Impressions: Service Date/Time: Monday, January 23, 2017 17:01 - CONCLUSION: 1. Multilevel cervical spine degenerative changes as above. 2. Mild degrees of spinal stenosis at C3/C4-C6/C7. No cord compression or cord signal abnormality. 3. Age indeterminate left paracentral/foraminal disc protrusion at C6/C7. 4. Multilevel foraminal stenosis, most severe on the left at C6/C7. Please see individual levels above. 5. No fracture or subluxation of the cervical spine. Angelo Garrido MD Brain MRI 01/23/17 Signed Impressions: Service Date/Time: Monday, January 23, 2017 17:01 - CONCLUSION: 1. No acute stroke or other acute intracranial abnormality demonstrated. 2. Moderate severity chronic white matter changes, nonspecific but most likely related to chronic small vessel disease. 3. Few scattered tiny lacunar infarcts of the brainstem. 4. Given the findings are not entirely specific, clinical evaluation for possible multiple sclerosis recommended. Angelo Garrido MD Knee X-Ray 01/22/172053 Signed Impressions: Service Date/Time: Sunday, January 22, 2017 21:17 - CONCLUSION: 1. Evidence of moderate to large joint effusion. 2. No acute fracture or malalignment. 3. Mild 3 compartment osteoarthritic change. Benjamin Person MD Hip and Pelvis X-Ray [id number]/22/172053 Signed Impressions: Service Date/Time: Sunday, January 22, 2017 21:10 - CONCLUSION: 1. Mild to moderate degenerative change of both hips with no acute fracture or malalignment. There is flattening and remodeling of the right humeral head. Benjamin Person MD Objective Remarks GENERAL: Alert, NAD. SKIN: Warm and dry. HEAD: Normocephalic. EYES: No scleral icterus. No injection or drainage. NECK: Supple, trachea midline. No JVD or lymphadenopathy. CARDIOVASCULAR: Regular rate and rhythm without murmurs, gallops, or rubs. RESPIRATORY: Breath sounds equal bilaterally. No accessory muscle use. GASTROINTESTINAL: Abdomen soft but could not appreciate bowel sound. No significant pain on palpation. MUSCULOSKELETAL: No cyanosis, or edema. BACK: Nontender without obvious deformity. No CVA tenderness. Procedures IVC filter placement 01/25/2017 LP 01/26/2017 Date of Insertion: Mar 03, 2017 Line: Central Venous Catheter Side: Right Location: Internal, Jugular A/P Problem List: (1) Transverse myelitis ICD Code: G37.3 - Acute transverse myelitis in demyelinating disease of central nervous system Status: Acute (2) Septic shock ICD Code: A41.9 - Sepsis, unspecified organism; R65.21 - Severe sepsis with septic shock Status: Resolved (3) HCAP (healthcare-associated pneumonia) ICD Code: J18.9 - Pneumonia, unspecified organism (4) Acute respiratory failure with hypoxia and hypercarbia ICD Code: J96.01 - Acute respiratory failure with hypoxia; J96.02 - Acute respiratory failure with hypercapnia Status: Resolved (5) Hyperlipidemia ICD Code: E78.5 - Hyperlipidemia, unspecified Status: Chronic (6) HTN (hypertension) ICD Code: I10 - Essential (primary) hypertension (7) DVT of lower extremity, bilateral ICD Code: I82.403 - Acute embolism and thrombosis of unspecified deep veins of lower extremity, bilateral (8) Diabetes mellitus with hyperglycemia ICD Code: E11.65 - Type 2 diabetes mellitus with hyperglycemia (9) Hypocalcemia ICD Code: E83.51 - Hypocalcemia (10) Hypernatremia ICD Code: E87.0 - Hyperosmolality and hypernatremia (11) Hypokalemia ICD Code: E87.6 - Hypokalemia (12) Acute metabolic encephalopathy ICD Code: G93.41 - Metabolic encephalopathy (13) Quadriparesis ICD Code: G82.50 - Quadriplegia, unspecified Status: Acute (14) BREEZY (acute kidney injury) ICD Code: N17.9 - Acute kidney failure, unspecified (15) Diarrhea ICD Code: R19.7 - Diarrhea, unspecified (16) Abdominal pain ICD Code: R10.9 - Unspecified abdominal pain (17) Hypoglycemia ICD Code: E16.2 - Hypoglycemia, unspecified (18) Urinary retention ICD Code: R33.9 - Retention of urine, unspecified (19) Acute hypoxemic respiratory failure ICD Code: J96.01 - Acute respiratory failure with hypoxia (20) Sepsis ICD Code: A41.9 - Sepsis, unspecified organism Assessment and Plan Acute metabolic encephalopathy- persistent Quadriparesis secondary to suspected transverse myelitis Recurrent falls Pain secondary to retroperitoneal hematoma. Suspected transverse myelitis. Received methylprednisolone 250 mg IV every 6 hours 01/27-02/02, started back on hydrocortisone 02/21/17, initially tapering to 50 mg IV every 8 hours starting received 1 dose at 2100 prior to becoming hypotensive. weaning hydrocortisone taper and stopped 03/09. Resumed hydrocortisone 50mg IV Q6hrly on 03/14 as patient became hypotensive following intubation on 03/13 requiring levophed. LP 01/26 and 02/01. CSF culture negative 01/26, 02/01 Oligoclonal bands negative. CSF/serum IgG index is not elevated. VDRL nonreactive. Cryptococcal antigen negative. Brain MRI 01/23 no acute stroke. Few scattered lacunar infarcts of the brainstem. Moderate chronic white matter changes. MRI cervical/thoracic spine- mild spinal stenosis C3/C4 to C6/C7. No cord compression. RPR negative. Neurology has been following, Dr. Crenshaw. Repeat CT brain 02/10 - negative. - Continue PT/OT. - Continue pain control with a bowel regimen. Acute hypoxemic respiratory failure Healthcare associated pneumonia/Aspiration Pneumonia Right-sided chest tube placed for pleural effusion. VQ scan 02/10 low probability for PE. CT chest 02/10 - left lower lobe collapse and consolidation. CT chest 02/27 revealed right greater than left pleural effusions. Extubated 02/23. Intubated 02/28. Extubated 03/11, Reintubated on . Right-sided chest tube placement 02/28 associate chemist, removed 03/05. Failed attempt to wean successfully due to volume overload and multiple organ failure. underwent perc tracheostomy 03/14. - pulmonology following for trach care, downsized trach. Capping trial ordered. - Albuterol/ipratropium aerosols every 4 hours with albuterol aerosols every 2 hours prn. Severe sepsis - resolved. Systolic heart failure likely chronic with ejection fraction 20-25% Hyperlipidemia History of hypertension Mild TR Sinus tachycardia Elevated troponin likely type II demand ischemia Restarted on Levophed on 03/09 following intubation, titrated off after starting hydrocortisone. Started hydrocortisone stress dose on 03/14 (as patient has been on steroids and was just tapered off on 03/09.) Patient had been hypotensive twice when attempting to wean off stress dose hydrocortisone in the past. EKG with nonspecific ST-T changes. 2-D echocardiogram 01/11 revealed EF 20-25%. Mild TR. Pulmonary arterial pressures were normal around 20. Troponin 6.55 on 03/02. - Likely will need stress test of heart once stable. Cannot anticoagulate due to retroperitoneal hematoma at the present time. - Currently on atenolol 25 mg twice a day. Continue amlodipine 10 mg daily. - Atorvastatin 10 mg by mouth daily for dyslipidemia. - Lasix 40mg IV Q12hrs. Large right retroperitoneal hematoma Erosive esophagitis Adematous/hyperplastic colon polyps Severe acute protein calorie malnutrition Nausea/vomiting - resolved. Diarrhea Gastritis Diverticulosis Internal and external hemorrhoids Hiatal hernia Elevated lipase 02/27 CT chest/abdomen and pelvis - 9.4 x 7.5 renal and 16 x 12 cm right psoas muscle hematoma. Fluid around liver and spleen. Right-sided nephrolithiasis. CTA abdomen 02/28 - possible blushing around iliac/lumbar vessels. Discussed with IR. s/p attempted embolization. CT abdomen and pelvis 02/10 atrophic left kidney. Bilateral inguinal hernias fat-containing. Nonobstructing 12 mm right kidney stone. Repeat CT abd/pelvis did not show evidence of obstruction. EGD/ Colonoscopy-02/22/17 showed gastritis esophagitis, hiatal hernia, diverticulosis and multiple polyps in descending colon and sigmoid which were snared biopsied. Biopsy pending. Dr. Lewis consulted for intervention if needed for elevated IAP. will continue to check as needed. Status post PEG tube placement by . - Lansoprazole 30 mg twice a day for GI prophylaxis. - Discontinued metoclopramide 5 milligrams IV every 8 hours today. - Dietary consult placed for appropriate tube feeding. Acute kidney injury in the setting of Chronic kidney disease stage 3-4 History of uric acid kidney stones with prior stent BPH Nonfunctioning left kidney Acute intravascular volume overload Hypokalemia/ Hyperkalemia Sloan placed due to urinary retention and worsening creatinine Maintain Sloan secondary to urinary retention Monitor intake and output q1hr. Monitor electrolytes. RIOS/SPEP negative. 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 Recommended nephrostomy tube if obstruction. Nephrology consulted, hemodialysis per nephrology. Making urine. Due to acute illness holding tamsulosin 0.4 mg by mouth daily for BPH. - Hyperkalemia resolved. - decreased urine output, creatinine increased 04/02 to 1.67. Per nephrology, patient is on Albumin and Lasix. Septic shock- resolved. Abscess and Suppurative thrombophlebitis left upper extremity MSSA bacteremia Klebsiella UTI ESBL positive Acute aspiration pneumonia/HCAP Previously treated with Bactrim, ertapenem, intermittent vancomycin, nafcillin. Blood cultures 2, UA ESBL positive Klebsiella UTI. Sputum 03/14 - Pseudomonas came back resistant to imipenem. Repeat blood cultures 2 and sputum 03/08 pending. Urine negative. Acute blood loss anemia DVT, bilateral posterior tibial vein, IVC filter Septic thrombophlebitis with occlusive thrombus mid cephalic and basilic vein side Received 10 PRBC, 14 FFP, 2 platelets, 1 cryo-02/28 Received 3 units PRBCs Serial hemoglobins every 6 hours Recheck coags Ultrasound 01/23/17 - Bilateral lower extremity with occlusive posterior tibial vein DVTs. Heparin was initially started for DVT but was placed on hold due to LP with suspected traumatic tap. Currently holding full anticoagulation with enoxaparin 100 mg IV twice a day due to anemia as of 02/26. IVC filter was placed 01/25/17. Ultrasound LUE 02/10 occlusive thrombus mid cephalic vein, basilic veins. Transfuse 3 units PRBCs 02/27. Transfuse 2 units PRBCs 03/01. Transfused 1 unit PRBCs on 03/14. - follow CBC. Stable. Diabetes mellitus Hypoglycemia History of prior adrenal insufficiency with shock Gout EGD colonoscopy completed 02/22. Gastritis and esophagitis, colon polyps. Started Hydrocortisone 100 mg every 8 hours 02/21/17 (Recent high dose steroids use now hypotensive, hypoglycemic), steroids had been tapered off. Resumed stress dose steroids on 03/16 as patient back on Levophed for pressor support after intubation. - wean hydrocortisone to 25 mg IV every twice a day. - Blood glucose remains high. We will increase Levemir total 17 units to 10 units BID. - Continue sliding scale insulin. Will add 5 units of Aspart TIDAC. Right distal ulna fracture. Dr. Nathan with orthopedics has evaluated and recommended nonoperative management. - Right wrist splint in place. Full code. Has IVC filter. Pharmacological prophylaxis is on hold due to retroperitoneal hematoma. Problem Qualifiers (1) Hyperlipidemia: Qualified Codes: E78.5 - Hyperlipidemia, unspecified (2) HTN (hypertension): Qualified Codes: I10 - Essential (primary) hypertension (3) Diabetes mellitus with hyperglycemia: Qualified Codes: E11.65 - Type 2 diabetes mellitus with hyperglycemia (4) Diarrhea: Qualified Codes: A09 - Infectious gastroenteritis and colitis, unspecified (5) Abdominal pain: Qualified Codes: R10.84 - Generalized abdominal pain (6) Sepsis: Qualified Codes: A41.9 - Sepsis, unspecified organism Kathryn Chairez DO Apr 03, 2017 10:21
--- NOTE | 2017-04-03 13:18 | HHI.IDPN ---
Subjective Subjective Remarks Patient is a 62-year-old male, admitted to the hospital for evaluation of pain in his right wrist. He gave a history of falling about a week ago and apparently had immediate pain in the right wrist. He did not seek any medical attention initially because reportedly he was very busy. He eventually presented, and he was found to have a distal ulnar fracture on plain films. He also had some redness and swelling. Orthopedics saw the patient, and was being treated conservatively with the splint. During this hospitalization also he started complaining of generalized weakness but more so in his lower extremity than his upper extremity. He had swelling in both lower extremity which revealed evidence of DVT in the posterior tibial veins. Neurology had seen the patient and he underwent lumbar puncture which apparently was traumatic. Patient was therefore not given anticoagulation because of the traumatic LP, and he underwent placement of an IVC filter on January 25. Patient had another lumbar puncture on February 01. He was felt to have transverse myelitis, and he was given high-dose IV Solu-Medrol from January 27 to February 02. There was apparently some improvement in his weakness. The imaging studies done for his weakness showed some spinal stenosis, and neurosurgery was consult that and recommended that there was no surgical intervention to be done. Patient has been stabilizing, but last night apparently deteriorated, and he ended up getting intubated, and had significant hypotension requiring pressors. There was also an ultrasound done of his left upper extremity which showed DVT, and there was evidence of superior 2 thrombophlebitis. Vascular surgery was consult to it and he had IND on his left upper extremity. Patient has had some fevers since yesterday. 2 blood cultures were done yesterday and they're now reported as growing gram-positive cocci in Bruce in clusters. He is currently sedated and intubated. He is on Levophed and vasopressin. A central line was placed as well as a femoral a line. He apparently had an IV in his left upper extremity and that was removed yesterday. Patient also has history of chronic kidney disease, and nephrology evaluated the patient. He was just being monitored for his renal insufficiency. Infectious disease consultation has been requested to evaluate the patient. Notes reviewed Low grade temps last 2 days Afebrile x >24 hours BP good Off Abx CXR clear Not SOB Antibiotics Fortaz IV - finished 03/27 Past Medical History Reviewed Allergies: Coded Allergies: levofloxacin (Verified Allergy, Severe, 01/22/17) Objective . Vital Signs Date Time Temp Pulse Resp B/P (MAP) Pulse Ox O2 Delivery O2 Flow Rate FiO2 04/03/17 12:52 98.1 89 18 122/75 (91) 96 04/03/17 08:00 97.9 93 19 130/74 (92) 96 04/03/17 07:57 98 35 04/03/17 05:17 98.1 91 20 162/74 (103) 97 04/03/17 02:45 88 04/03/17 02:31 18 04/03/17 01:11 98.4 89 18 157/72 (100) 94 04/03/17 01:06 95 T-Piece 35 Humidified 04/02/17 22:13 97 T-Piece 5.00 35 Humidified 04/02/17 21:49 96 T-piece 6.00 35 04/02/17 20:37 98.3 87 18 155/70 (98) 96 04/02/17 16:57 98.6 89 18 153/72 (99) 95 04/03/17 04/03/17 04/04/17 15:00 23:00 07:00 Intake Total 400 ml Balance 400 ml Other 400 ml . Laboratory Tests Test 04/02/17 06:40 04/03/17 06:45 White Blood Count 17.4 TH/MM3 17.1 TH/MM3 Red Blood Count 3.23 MIL/MM3 3.18 MIL/MM3 Hemoglobin 9.1 GM/DL 9.0 GM/DL Hematocrit 28.7 % 27.9 % Mean Corpuscular Volume 88.7 FL 87.9 FL Mean Corpuscular Hemoglobin 28.3 PG 28.5 PG Mean Corpuscular Hemoglobin Concent 31.9 % 32.4 % Red Cell Distribution Width 16.0 % 16.0 % Platelet Count 130 TH/MM3 132 TH/MM3 Mean Platelet Volume 9.9 FL 10.1 FL Laboratory Tests Test 04/02/17 06:40 04/03/17 06:45 Blood Urea Nitrogen 68 MG/DL 76 MG/DL Creatinine 1.45 MG/DL 1.67 MG/DL Random Glucose 330 MG/DL 257 MG/DL Calcium Level 7.6 MG/DL 8.1 MG/DL Magnesium Level 1.8 MG/DL 1.9 MG/DL Sodium Level 136 MEQ/L 136 MEQ/L Potassium Level 3.8 MEQ/L 3.8 MEQ/L Chloride Level 101 MEQ/L 100 MEQ/L Carbon Dioxide Level 28.2 MEQ/L 28.7 MEQ/L Anion Gap 7 MEQ/L 7 MEQ/L Estimat Glomerular Filtration Rate 49 ML/MIN 42 ML/MIN Microbiology Date/Time Source Procedure Growth Status 04/01/17 12:55 Sputum Oral Tracheal Aspirate Gram Stain - Final Resulted 04/01/17 12:55 Sputum Culture - Preliminary Pseudomonas Aeruginosa Resulted Imaging Chest X-Ray 03/14/17 0000 Signed Impressions: Service Date/Time: Tuesday, March 14, 2017 13:41 - CONCLUSION: 1. Tracheostomy in good position. 2. Left lower lung infiltrates and left pleural effusion. Candido Patton MD Aortography 02/28/17 0000 Signed Impressions: Service Date/Time: Tuesday, February 28, 2017 08:01 - CONCLUSION: 1. Active hemorrhage from distal right lateral sacral and iliolumbar branches successfully coil and Gelfoam embolized, as above. Juan Bhakta MD Abdomen/Pelvis CT 02/28/17 0000 Signed Impressions: Service Date/Time: Tuesday, February 28, 2017 06:51 - CONCLUSION: 1. The right retroperitoneal hematoma has increased in size, as above. There are 2 serpiginous arterially enhancing structures visualized, one in the right psoas muscle and another extending into the hematoma at the right iliac fossa. These could represent sites of continued active bleeding. 2. Stable moderate size left and small right pleural effusion with associated compressive atelectasis. 3. Stable small volume of free fluid in the abdomen and pelvis. There is also anasarca. The findings concerning the retroperitoneal hematoma were discussed with Dr. Aguiar via telephone at approximately 7: 10 AM on 02/28/2017. Angelo Allen MD Chest CT 02/27/17 0000 Signed Impressions: Service Date/Time: Monday, February 27, 2017 18:12 - CONCLUSION: 1. Bilateral pleural effusions with bibasilar atelectasis, left greater than right. Tom Sanchez MD Abdomen X-Ray 02/26/17 0000 Signed Impressions: Service Date/Time: Sunday, February 26, 2017 14:52 - CONCLUSION: 1. Nonobstructive bowel gas pattern. Juan Bhakta MD Upper Extremity Ultrasound 02/10/17 0000 Signed Impressions: Service Date/Time: Friday, February 10, 2017 18:46 - CONCLUSION: Occlusive thrombus in the cephalic and basilic veins. Benjamin Person MD Lung Scan-V Nuclear Medicine 02/10/17 0000 Signed Impressions: Service Date/Time: Friday, February 10, 2017 22:17 - CONCLUSION: Low probability pulmonary embolism. Candido Patton MD Head CT 02/10/17 0000 Signed Impressions: Service Date/Time: Friday, February 10, 2017 23:51 - CONCLUSION: Negative noncontrast CT brain. Candido Patton MD Wrist X-Ray 02/06/17 0000 Signed Impressions: Service Date/Time: Monday, February 06, 2017 12:50 - CONCLUSION: Minimally displaced distal radius and ulnar fractures. Armando Dodd MD Lumbar Puncture Fluoroscopy 02/01/17 0000 Signed Impressions: Service Date/Time: January 09:35 - CONCLUSION: Uncomplicated fluoroscopically guided lumbar puncture. CSF was clear. Nabeel Peralta MD Head Magnetic Resonance Angiography 01/27/17 0000 Signed Impressions: Service Date/Time: Friday, January 27, 2017 10:33 - CONCLUSION: No intracranial vascular abnormality is identified. There is no aneurysm visualized. Angelo Allen MD IVC Filter Placement X-Ray 01/25/17 0000 Signed Impressions: Service Date/Time: January 10:29 - CONCLUSION: Uncomplicated inferior vena cava filter placement as above. Yung Fowler MD Thoracic Spine MRI 01/24/17 0000 Signed Impressions: Service Date/Time: Tuesday, January 24, 2017 22:29 - CONCLUSION: 1. Mild degenerative spondylosis most prominently at T11-L1 with slight effacement of the anterior thecal sac and left lateral recess. No significant neural foraminal stenosis. 2. No acute fracture. Juan Bhakta MD Renal Ultrasound 01/23/17 0000 Signed Impressions: Service Date/Time: Monday, January 23, 2017 08:53 - CONCLUSION: 1. Evidence of chronic parenchymal disease of both kidneys. No obstructive uropathy or other acute abnormality demonstrated. 2. Trace ascites, nonspecific. Angelo Garrido MD Lumbar Spine MRI 01/23/17 0000 Signed Impressions: Service Date/Time: Monday, January 23, 2017 17:01 - CONCLUSION: 1. At L4-5 is a broad-based disc protrusion with severe central canal and lateral recess stenosis and flattening of the exiting right L4 nerve root. 2. L5-S1 there is a disc protrusion and moderate stenosis with flattening of the exiting L5 nerve roots bilaterally. 3. At L3-4 there is a moderate to severe central stenosis and lateral recess stenosis with mild foraminal stenosis. 4. No acute fracture or spondylolisthesis. Trace Holloway MD Lower Extremity Ultrasound 01/23/17 Signed Impressions: Service Date/Time: Monday, January 23, 2017 09:53 - CONCLUSION: Bilateral focal lower extremity DVT involving the posterior tibial veins. Angelo Garrido MD Cervical Spine MRI 01/23/17 Signed Impressions: Service Date/Time: Monday, January 23, 2017 17:01 - CONCLUSION: 1. Multilevel cervical spine degenerative changes as above. 2. Mild degrees of spinal stenosis at C3/C4-C6/C7. No cord compression or cord signal abnormality. 3. Age indeterminate left paracentral/foraminal disc protrusion at C6/C7. 4. Multilevel foraminal stenosis, most severe on the left at C6/C7. Please see individual levels above. 5. No fracture or subluxation of the cervical spine. Angelo Garrido MD Brain MRI 01/23/17 Signed Impressions: Service Date/Time: Monday, January 23, 2017 17:01 - CONCLUSION: 1. No acute stroke or other acute intracranial abnormality demonstrated. 2. Moderate severity chronic white matter changes, nonspecific but most likely related to chronic small vessel disease. 3. Few scattered tiny lacunar infarcts of the brainstem. 4. Given the findings are not entirely specific, clinical evaluation for possible multiple sclerosis recommended. Angelo Garrido MD Knee X-Ray 01/22/172053 Signed Impressions: Service Date/Time: Sunday, January 22, 2017 21:17 - CONCLUSION: 1. Evidence of moderate to large joint effusion. 2. No acute fracture or malalignment. 3. Mild 3 compartment osteoarthritic change. Benjamin Person MD Hip and Pelvis X-Ray 01/22/172053 Signed Impressions: Service Date/Time: Sunday, January 22, 2017 21:10 - CONCLUSION: 1. Mild to moderate degenerative change of both hips with no acute fracture or malalignment. There is flattening and remodeling of the right humeral head. Benjamin Person MD Physical Exam GENERAL: Awake and following commands, NAD, on T-piece SKIN: Cool and dry. No generalized rash. EYES: [place] conjunctiva. No petechia or hemorrhage. EARS, NOSE AND THROAT: Nose without bleeding or purulent nasal discharge. Dry oral mucosa NECK: Trachea midline. Supple and no meningeal signs. Trach site ok CARDIOVASCULAR: Regular rate and rhythm. Soft heart sounds. No murmurs RESPIRATORY: Coarse BS bilaterally, decreased at bases. ABDOMEN: Soft, mildly distended, PEG site ok. Mild tenderness, no guarding EXTREMITIES: No clubbing, cyanosis. Edema feet better; edema hands better : very swollen scrotum, has a lot of sediment in his cath tubing NEUROLOGICAL: awake and following commands PSYCHIATRIC: Calm and cooperative LINE: Lines with no evidence of infection Assessment & Plan Remarks IMPRESSION Fevers - resolved - had Kleb and Sten mal in sputum, S/P Rx - now with Pseudomonas S/P Rx 03/27 - PSAE R to Imipenem Leukocytosis HCAP, Pseudomonas now, just completed Rx 03/27 - previously Kleb and Sten mal, S/P Rx with Bactrim Shock, resolved Large R retroperitoneal bleed, S/P multiple transfusions and S/P coiling of bleeders Elevated amylase and lipase, better Anemia, due to bleed, retroperitoneal MSSA sepsis, due to suppurative thrombophlebitis LUE, S/P I and D and excision of portion of cephalic vein - S/P Rx Respiratory failure, has had several intubations - reintubated again 02/28, extubated 03/11 - reintubated again - S/P trach 03/14 Recent Rx 7 days high dose solumedrol for transverse myelitis Wu LE DVT has IVC filter placed 01/25 - ?hypercoagulable state Chronic kidney disease, worsening creatinine - shock and compression of ureter by hematoma Known DM, HTN Gouty tophi both hands and feet Diarrhea, C diff negative UTI, GNR - repeat UA better, but a lot of sediment in the urine Thrombocytopenia, no evidence of DIC, ?meds, ?infection, ?due to bleed - improving Low grade temps, ?plugging, CXR clear, no central line - has PSAEin sputum, ?colonization or tracheobronchitis RECOMMENDATION S/P Rx for MSSA sepsis S/P Rx PNA Tobra nebs Follow temps Follow C/S Monitor progress Irene Edwards MD Apr 03, 2017 13:18
--- NOTE | 2017-04-03 14:45 | HHI.HCPN ---
Reason for visit a. To assist with evaluation and management of symptoms including: shortness of breath, pain, debility b. To assist medical decision maker(s) with: better understanding of current medical conditions; weighing benefits/burdens of medical treatment options; making medical treatment decisions. Subjective/Interval History Patient seen in his room. Patient is awake, alert and trying to communicate with mouthing some words today. Patient denies pain. Per bedside nurse, patient was OOB today and worked with PT. Patient is afebrile. SBP 120s-160s. O2 saturation high 90s on T-Bruce 35%. No respiratory distress noted. Renal ultrasound on 04/02/17 revealed what appears to be multiple shadowing stones of the right kidney without hydronephrosis. Laboratory workup revealing WBC 17.1, hemoglobin 9.0, hematocrit 27.9, platelet count 132, sodium 136, potassium 3.8, BUN/creatinine 76/1.67, random glucose 257, calcium 8.1, magnesium 1.9. Nephrology and ID following. Case discussed with bedside RN Nadia.Telephone conversation with patient's sister Deb, updated her medical status. . Family/friend interactions Telephone conversation with patient's sister Deb, updated her medical status. . Advance Directives Living Will: Never completed Health Care Surrogate: Never completed Durable Power of Wholesale Loan Processor: Never completed Advance Directive Specifics Documented care wishes: No known documented care wishes have been completed. . Objective Vital Signs Date Time Temp Pulse Resp B/P (MAP) Pulse Ox O2 Delivery O2 Flow Rate FiO2 04/03/17 12:52 98.1 89 18 122/75 (91) 96 04/03/17 08:00 97.9 93 19 130/74 (92) 96 04/03/17 07:57 98 35 04/03/17 05:17 98.1 91 20 162/74 (103) 97 04/03/17 02:45 88 04/03/17 02:31 18 04/03/17 01:11 98.4 89 18 157/72 (100) 94 04/03/17 01:06 95 T-Piece 35 Humidified 04/02/17 22:13 97 T-Piece 5.00 35 Humidified 04/02/17 21:49 96 T-piece 6.00 35 04/02/17 20:37 98.3 87 18 155/70 (98) 96 04/02/17 16:57 98.6 89 18 153/72 (99) 95 Intake & Output 04/03/17 04/03/17 07:00 19:00 Intake Total 400 ml 400 ml Output Total 450 ml Balance -50 ml 400 ml Other 400 ml 400 ml Output Urine Total 450 ml Physical Exam CONSTITUTIONAL/GENERAL: This is an ill-looking patient, trached on T piece, 35% TUBES/LINES/DRAINS: PEG tube, #6Tracheostomy, PIVs, FC SKIN: No jaundice. Ecchymoses on upper extremities. Sacral pressure wound and L heel pressure injury. Wound to anterior neck - tracheostomy insertion area. Afebrile. Not diaphoretic. HEAD: Atraumatic. Normocephalic. EYES: Pupils equal and round, slight reaction.No scleral icterus. No injection or drainage. Fundi not examined. ENT: Trached. Nose without bleeding or purulent drainage. Moist oral mucosa. NECK: Trachea midline. #6 Tracheostomy midline. Wound to anterior neck - tracheostomy insertion area CARDIOVASCULAR: Regular rate and rhythm without murmurs, gallops, or rubs. No JVD. RESPIRATORY/CHEST: Symmetric, unlabored respirations. rhonchi to auscultation. Breath sounds equal bilaterally. Tracheostomy on T-bruce 28%saturating in the high 90s. GASTROINTESTINAL: Abdomen soft, non-tender, nondistended. No guarding. Bowel sounds present. Nepro-Goal infusing at 55ml/hr GENITOURINARY: Without palpable bladder distension. Sloan catheter in with clear urine. Scrotal edema. MUSCULOSKELETAL: Gout tophi to fingers, knees, elbows and both ankles. Trace edema to all 4 extremities. NEUROLOGICAL: Trached. Patient alert, awake today. Patient was OOB to stretcher chair today with PT. Followed simple commands with all 4 extremities and goes right back to sleep. PSYCHIATRIC: No obvious anxiety/depression. no apparent hallucinations or other psychotic thought process. . Diagnostic Tests Laboratory Laboratory Tests Test 04/01/17 05:06 04/02/17 06:40 04/03/17 06:45 White Blood Count 17.2 TH/MM3 (4.0-11.0) 17.4 TH/MM3 (4.0-11.0) 17.1 TH/MM3 (4.0-11.0) Red Blood Count 3.39 MIL/MM3 (4.50-5.90) 3.23 MIL/MM3 (4.50-5.90) 3.18 MIL/MM3 (4.50-5.90) Hemoglobin 9.8 GM/DL (13.0-17.0) 9.1 GM/DL (13.0-17.0) 9.0 GM/DL (13.0-17.0) Hematocrit 30.6 % (39.0-51.0) 28.7 % (39.0-51.0) 27.9 % (39.0-51.0) Mean Corpuscular Volume 90.2 FL (80.0-100.0) 88.7 FL (80.0-100.0) 87.9 FL (80.0-100.0) Mean Corpuscular Hemoglobin 28.9 PG (27.0-34.0) 28.3 PG (27.0-34.0) 28.5 PG (27.0-34.0) Mean Corpuscular Hemoglobin Concent 32.1 % (32.0-36.0) 31.9 % (32.0-36.0) 32.4 % (32.0-36.0) Red Cell Distribution Width 16.7 % (11.6-17.2) 16.0 % (11.6-17.2) 16.0 % (11.6-17.2) Platelet Count 131 TH/MM3 (150-450) 130 TH/MM3 (150-450) 132 TH/MM3 (150-450) Mean Platelet Volume 10.2 FL (7.0-11.0) 9.9 FL (7.0-11.0) 10.1 FL (7.0-11.0) Blood Urea Nitrogen 57 MG/DL (7-18) 68 MG/DL (7-18) 76 MG/DL (7-18) Creatinine 0.99 MG/DL (0.60-1.30) 1.45 MG/DL (0.60-1.30) 1.67 MG/DL (0.60-1.30) Random Glucose 108 MG/DL (74-106) 330 MG/DL (74-106) 257 MG/DL (74-106) Calcium Level 7.7 MG/DL (8.5-10.1) 7.6 MG/DL (8.5-10.1) 8.1 MG/DL (8.5-10.1) Magnesium Level 1.9 MG/DL (1.5-2.5) 1.8 MG/DL (1.5-2.5) 1.9 MG/DL (1.5-2.5) Sodium Level 142 MEQ/L (136-145) 136 MEQ/L (136-145) 136 MEQ/L (136-145) Potassium Level 3.3 MEQ/L (3.5-5.1) 3.8 MEQ/L (3.5-5.1) 3.8 MEQ/L (3.5-5.1) Chloride Level 105 MEQ/L (98-107) 101 MEQ/L (98-107) 100 MEQ/L (98-107) Carbon Dioxide Level 29.8 MEQ/L (21.0-32.0) 28.2 MEQ/L (21.0-32.0) 28.7 MEQ/L (21.0-32.0) Anion Gap 7 MEQ/L (5-15) 7 MEQ/L (5-15) 7 MEQ/L (5-15) Estimat Glomerular Filtration Rate 77 ML/MIN (>89) 49 ML/MIN (>89) 42 ML/MIN (>89) Result Diagram: 04/03/17 0645 04/03/17 0645 Microbiology Microbiology Date/Time Source Procedure Growth Status 04/01/17 12:55 Sputum Oral Tracheal Aspirate Gram Stain - Final Resulted 04/01/17 12:55 Sputum Culture - Preliminary Pseudomonas Aeruginosa Resulted Procedures 01/25/2017- Retrievable IVC Filter placement 01/26/17-lumbar puncture with fluoroscopy-by interventional radiology 02/01/17- lumbar puncture fluoroscopy by interventional radiology 02/10/17- Endotracheal Intubation 02/10/17-left IJ central venous line placed 02/10/17-left femoral arterial line placed 02/11/17-Diagnostic and therapeutic bronchoscopy with bronchoalveolar lavage 02/11/17-Left upper extremity incision and debridement with excision of septic cephalic vein 02/13/17- Extubated 02/20/17- endotracheal intubation 02/20/17- Left subclavian central line placement 02/20/17-Right radial A-line placement 02/22/17-EGD/colonoscopy 02/28/17-right radial a line 02/28/17- Endotracheal intubation 02/28/17- right sided introducer catheter placement 02/28/17- Right IJ central line placement 02/28/17-Right chest tube placement 02/28/17- Embolization of inferior and superior sacral branches of right internal iliac artery 03/01/17- Hemodialysis access catheter 03/03/17-Right IJ central line placement 03/11/17-Extubated 03/13/17- Endotracheal intubation 03/14/17-Tracheostomy placement 03/15/17-PEG tube placement . Assessment and Plan Disease Oriented Problem List: (1) Acute respiratory failure (2) Septic shock (3) Aspiration pneumonia (4) Acute renal failure (5) CKD (chronic kidney disease) stage 3, GFR 30-59 ml/min (6) Cardiomyopathy (7) DVT of lower extremity, bilateral (8) Thrombophlebitis arm (9) Diabetes mellitus (10) Gout (11) HTN (hypertension) (12) Hyperlipidemia Symptom Scale: (1) Shortness of breath 0-10 Scale: Unable to quantify Comment: Trach downsized to #6. Currently trached on T piece 50% . (2) Debility 0-10 Scale: Unable to quantify Comment: Progressive. . (3) Pain 0-10 Scale: Unable to quantify Comment: History of falls, gout, arthritis, and currently bedbound. . Pertinent Non-Medical Issues Psychosocial:Patient was born and raised in [place], [place]. Patient was once for 20 years, now and has 2 adult sons. 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 He recently resigned due to failing health. Spiritual: No hoahaoism affiliation Legal: Per [place] statutes, in the absence of written advanced directives healthcare proxy decision making falls to the patient's 2 adult children. Patient's son (Davie) lives locally and wishes to participate in the role of the healthcare proxy decision maker. Palliative care has attempted to contact Arnel, has not call back. Patient`s sister Deb and patients brother verbalized that they have been updating Arnel on patient`s medical status. Ethical issues impacting care: No known ethical issues impacting care at this time. . Important Contacts Son-Davie [place] - Son-Arnel [place]- -cell -home Sister-Deb Curry . Prognosis Mr Kerr is a 62 years old male with a past medical history of hypertension, asthma, diabetes, hyperlipidemia, chronic kidney disease and gout. Patient presented to the ED on 01/22/17 complaining of bilateral knee and right arm pain after a mechanical fall 4 or 5 days prior to coming to the ER. Clinical course complicated with increased weakness leading to numerous diagnostic work ups for possible transverse myelitis, DVTs, retroperitoneal hematoma, aspiration pneumonia, intubation x 4 times, septic and hemorrhagic shock requiring support with pressors and multiple pRBC, FFP transfusions as well as platelets and cryo , renal failure requiring hemodialysis and sacral wound Given ongoing comorbidities, and prolonged hospitalization, patient remains at risk for further complications, deterioration and decline. Code Status: Full Code Plan PLAN: Legal decision maker: Patient is currently trached on TPierce and is not able to make any medical decisions for himself at this time. Patient has 2 adult sons Davie Kerr and Arnel Kerr. According to [place] Statute, his two aforementioned sons will serve as his health care proxys. Patient`s son Davie is acting in the role of HCP decision maker independently at this time given that he is the one who is reasonably available for consultation. Goals: 04/03/17- Remain Aggressive. Patient alert, awake today. Patient was OOB to stretcher chair today with PT. Patient was denied at [place]. CODE STATUS: Full Code SYMPTOMS: * Shortness of breath: Multifactorial. Patient has had aspiration pneumonia. Patient has been intubated 4 times this hospitalization. Patient has a tracheostomy. Now requiring T-Bruce 35%. Patient on duonebs. Patient also on Hydrocortisone 50mg q 6 hours. Sterilization Technician following. Trach downsized to a 6. Capping attempted and patient did not do well per bedside RN. Wound care following. * Pain: Patient presented initially complaining of pain to right wrist and bilateral knees after a mechanical fall. Patient has a history of gout, arthritis, multiple falls and is currently bedbound. Patient`s pain medication dose decreased from Oxycodone 10mg to Oxycodone 5mg q 4 hours ATC. Patient also on Hydrocortisone. Denies pain today. * Debility: Progressive. Patient has had decline in his health for the past 4 months, including progressively increased weakness and difficulty ambulating and prolonged hospitalization with multiple setbacks. Patient remains at high risk for further physical deconditioning and debility. PT and OT following with patient. PT and OT following. Patient will benefit from getting OOB to a stretcher chair . PT and OT following. Recommending Speech therapy consultation. Palliative care will continue to follow the patient during hospital course as condition evolves, to assist patient/decision-maker with understanding of their medical conditions, weighing benefits/burdens of treatment options, for clarification of goals of treatment. Additionally will assist with any symptoms of palliative concern. . Aftab Cartwright Apr 03, 2017 14:45
[2017-04-03] MEDS: INSULIN ASPART 1,000 UNITS/10 ML VIAL SQ SCH (17:00)
--- NOTE | 2017-04-03 17:44 | HHI.NPPN ---
Subjective History of Present Illness 61-year-old with history of urinary stone Additional Remarks Patient had trach on trach collar O2 , not in distress. Review of Systems General Constitutional: Fatigue Objective Data Data 04/03/17 04/04/17 19:00 07:00 Intake Total 400 ml Output Total 700 ml Balance -300 ml Other 400 ml Output Urine Total 700 ml Vital Signs Date Time Temp Pulse Resp B/P (MAP) Pulse Ox O2 Delivery O2 Flow Rate FiO2 04/03/17 16:15 98.1 92 18 125/67 (86) 99 04/03/17 16:14 97 T-piece 6.00 35 04/03/17 12:52 98.1 89 18 122/75 (91) 96 04/03/17 09:45 95 T-Piece 35 Humidified 04/03/17 08:00 97.9 93 19 130/74 (92) 96 04/03/17 07:57 98 35 04/03/17 05:17 98.1 91 20 162/74 (103) 97 04/03/17 02:45 88 04/03/17 02:31 18 04/03/17 01:11 98.4 89 18 157/72 (100) 94 04/03/17 01:06 95 T-Piece 35 Humidified 04/02/17 22:13 97 T-Piece 5.00 35 Humidified 04/02/17 21:49 96 T-piece 6.00 35 04/02/17 20:37 98.3 87 18 155/70 (98) 96 -: 04/03/17 0645 04/03/17 0645 Physical Exam General Appearance: Pale Eyes Eye Exam: Pupils Equal Throat Throat Exam: Oral Mucosa [place] & Moist Neck Neck Exam: Neck Supple Pulmonary Resp Exam: Clear Bilaterally Cardiology CV Exam: Normal Sinus Rhythm Gastrointestinal/Abdomen GI Exam: Non-Tender, Distended Extremeties Extremities Exam: Moderate Edema, Pitting Edema Neurologic Neuro Exam: Awake Assessment/Plan Problem List: (1) Acute renal failure ICD Codes: N17.9 - Acute kidney failure, unspecified Status: Acute Plan: Patient developed Hypotension,sepsis staph aureus respiratory failure and increase WBC. 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 infection playing a role has colonize airway Pseudomonas growing UOP fair with Lasix Cr higher continue to diurese Rx underlying infection? (2) CKD (chronic kidney disease) stage 3, GFR 30-59 ml/min ICD Codes: N18.3 - Chronic kidney disease, stage 3 (moderate) Status: Chronic Plan: Ultrasound revealed chronic kidney disease there is no kidney stones (3) Diabetes ICD Codes: E11.9 - Type 2 diabetes mellitus without complications Plan: Continue to monitor (4) Distal end of ulna fracture, closed ICD Codes: S52.609A - Unspecified fracture of lower end of unspecified ulna, initial encounter for closed fracture Status: Acute Plan: Orthopedic is following Problem Qualifiers (1) Acute renal failure: Qualified Codes: N17.9 - Acute kidney failure, unspecified Laura Liao MD Apr 03, 2017 17:44
[2017-04-03] MEDS: ATORVASTATIN 10 MG TAB PO SCH (21:32)
[2017-04-03] MEDS: INSULIN DETEMIR 100 UNITS/ML VIAL SQ SCH (21:34)
[2017-04-03] MEDS ORDERED: PILL SPLITTER OTHER PRN (22:45)
[2017-04-04] VITALS (10 sets, daily range): BP systolic 118–184; BP diastolic 67–84; PULSE 83–105; RESP 16–20; TEMP 97.2–98.9; O2SAT 95–100
[2017-04-04] MEDS: FREE WATER G-TUBE SCH ×6 (00:13→20:00)
[2017-04-04] MEDS: oxyCODONE HCL ORAL CONC 5 MG/0.25 ML SYRINGE PO SCH ×6 (02:07→22:33)
[2017-04-04] MEDS: ALPRAZolam 0.25 MG TAB PO PRN ×2 (04:23→22:35)
[2017-04-04] MEDS: RESP: ALBUTEROL 2.5 MG/IPRATROPIUM 0.5 MG NEB (SCH) NEB ×5 (08:28→21:18)
[2017-04-04] MEDS: INSULIN DETEMIR 100 UNITS/ML VIAL SQ SCH ×2 (09:00→21:00)
[2017-04-04] MEDS: LANSOPRAZOLE SOLUTAB 30 MG TAB NG SCH ×2 (09:09→22:35)
[2017-04-04] MEDS: LACTOBACILLUS ACIDOPHILUS TAB PO SCH ×3 (09:09→18:04)
[2017-04-04] MEDS: TAMSULOSIN HCL 0.4 MG CAP PO SCH ×2 (09:09→22:35)
[2017-04-04] MEDS: ATENOLOL 25 MG TAB PO SCH ×2 (09:09→22:35)
[2017-04-04] MEDS: HYDROCORTISONE SOD SUCCINATE 100 MG VIAL IV PUSH SCH ×2 (09:10→22:34)
[2017-04-04] MEDS: INSULIN ASPART SUPPLEMENTAL SCALE SQ SCH ×4 (09:11→21:00)
[2017-04-04] MEDS: CHLORHEXIDINE 0.12% (ORAL KIT) 15 ML CUP MT SCH ×2 (09:11→20:00)
[2017-04-04] MEDS: INSULIN ASPART 1,000 UNITS/10 ML VIAL SQ SCH ×3 (09:11→18:05)
[2017-04-04] MEDS: FUROSEMIDE 40 MG/4 ML VIAL IV PUSH SCH ×2 (09:12→18:04)
[2017-04-04] MEDS: SODIUM CHLORIDE 0.9% FLUSH 10 ML FLUSH IV FLUSH SCH ×3 (09:12→21:00)
--- NOTE | 2017-04-04 09:44 | HHI.PR ---
Subjective Remarks Follow-up visit metabolic encephalopathy, transverse myelitis, acute respiratory failure status post tracheostomy. Patient seen and examined today lying in bed. Tracheostomy has been. Patient states he's doing okay but wants to get out of bed and sit in the chair. Able to verbalize few words and sentences. Denies shortness of breath or dyspnea. Denies abdominal pain or discomfort. Denies chest pain or palpitations. Objective Vitals Vital Signs Date Time Temp Pulse Resp B/P (MAP) Pulse Ox O2 Delivery O2 Flow Rate FiO2 04/04/17 08:28 97 T-piece 5.00 30 04/04/17 08:00 97.2 97 16 148/82 (104) 97 04/04/17 06:00 96 T-Piece 5.00 28 04/04/17 04:00 98.0 95 18 122/84 (97) 97 04/04/17 03:45 100 04/04/17 03:07 18 04/04/17 01:00 97.7 83 18 118/76 (90) 95 04/03/17 21:46 95 T-Piece 35 Humidified 04/03/17 21:30 96 T-Piece 5.00 28 04/03/17 20:00 97.2 98 22 120/67 (84) 99 04/03/17 16:15 98.1 92 18 125/67 (86) 99 04/03/17 16:14 97 T-piece 6.00 35 04/03/17 12:52 98.1 89 18 122/75 (91) 96 04/03/17 09:45 95 T-Piece 35 Humidified I/O 04/03/17 04/03/17 04/03/17 04/04/17 04/04/17 04/04/17 07:00 15:00 23:00 07:00 15:00 23:00 Intake Total 400 ml 1700 ml Output Total 450 ml 700 ml 0 ml 1800 ml Balance -450 ml -300 ml 0 ml -100 ml Tube Feeding 500 ml Other 400 ml 1200 ml Output Urine Total 450 ml 700 ml 1800 ml Tube Feeding Residual Discard 0 ml Result Diagram: 04/03/17 0645 04/03/17 0645 Imaging Last Impressions Renal Ultrasound 04/02/17 0000 Signed Impressions: Service Date/Time: Sunday, April 02, 2017 16:59 - CONCLUSION: Limited exam with the left kidney being unable to be evaluated in the bladder not distended. There do appear to be multiple shadowing stones at the right kidney without hydronephrosis. Angelo Manzo MD Chest X-Ray 04/01/17 0000 Signed Impressions: Service Date/Time: Saturday, April 01, 2017 23:42 - CONCLUSION: Moderate-sized left pleural effusion. Tracheostomy tube in good position. Lungs are grossly clear. Duy Genao MD Wrist X-Ray 03/27/17 0000 Signed Impressions: Service Date/Time: Monday, March 27, 2017 13:21 - CONCLUSION: 1. No acute fracture is identified. A portion of the previously documented distal ulna fracture remains visualized. 2. 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 Angelo Allen MD Aortography 02/28/17 0000 Signed Impressions: Service Date/Time: Tuesday, February 28, 2017 08:01 - CONCLUSION: 1. Active hemorrhage from distal right lateral sacral and iliolumbar branches successfully coil and Gelfoam embolized, as above. Juan Bhakta MD Abdomen/Pelvis CT 02/28/17 0000 Signed Impressions: Service Date/Time: Tuesday, February 28, 2017 06:51 - CONCLUSION: 1. The right retroperitoneal hematoma has increased in size, as above. There are 2 serpiginous arterially enhancing structures visualized, one in the right psoas muscle and another extending into the hematoma at the right iliac fossa. These could represent sites of continued active bleeding. 2. Stable moderate size left and small right pleural effusion with associated compressive atelectasis. 3. Stable small volume of free fluid in the abdomen and pelvis. There is also anasarca. The findings concerning the retroperitoneal hematoma were discussed with Dr. Aguiar via telephone at approximately 7: 10 AM on 02/28/2017. Angelo Allen MD Chest CT 02/27/17 0000 Signed Impressions: Service Date/Time: Monday, February 27, 2017 18:12 - CONCLUSION: 1. Bilateral pleural effusions with bibasilar atelectasis, left greater than right. Tom Sanchez MD Abdomen X-Ray 02/26/17 0000 Signed Impressions: Service Date/Time: Sunday, February 26, 2017 14:52 - CONCLUSION: 1. Nonobstructive bowel gas pattern. Juan Bhakta MD Upper Extremity Ultrasound 02/10/17 Signed Impressions: Service Date/Time: Friday, February 10, 2017 18:46 - CONCLUSION: Occlusive thrombus in the cephalic and basilic veins. Benjamin Person MD Lung Scan-V Nuclear Medicine 02/10/17 Signed Impressions: Service Date/Time: Friday, February 10, 2017 22:17 - CONCLUSION: Low probability pulmonary embolism. Candido Patton MD Head CT 02/10/17 Signed Impressions: Service Date/Time: Friday, February 10, 2017 23:51 - CONCLUSION: Negative noncontrast CT brain. Candido Patton MD Lumbar Puncture Fluoroscopy 02/01/17 Signed Impressions: Service Date/Time: January 09:35 - CONCLUSION: Uncomplicated fluoroscopically guided lumbar puncture. CSF was clear. Nabeel Peralta MD Head Magnetic Resonance Angiography 01/27/17 Signed Impressions: Service Date/Time: Friday, January 27, 2017 10:33 - CONCLUSION: No intracranial vascular abnormality is identified. There is no aneurysm visualized. Angelo Allen MD IVC Filter Placement X-Ray 01/25/17 Signed Impressions: Service Date/Time: January 10:29 - CONCLUSION: Uncomplicated inferior vena cava filter placement as above. Yung Fowler MD Thoracic Spine MRI 01/24/17 Signed Impressions: Service Date/Time: Tuesday, January 24, 2017 22:29 - CONCLUSION: 1. Mild degenerative spondylosis most prominently at T11-L1 with slight effacement of the anterior thecal sac and left lateral recess. No significant neural foraminal stenosis. 2. No acute fracture. Juan Bhakta MD Lumbar Spine MRI 01/23/17 Signed Impressions: Service Date/Time: Monday, January 23, 2017 17:01 - CONCLUSION: 1. At L4-5 is a broad-based disc protrusion with severe central canal and lateral recess stenosis and flattening of the exiting right L4 nerve root. 2. L5-S1 there is a disc protrusion and moderate stenosis with flattening of the exiting L5 nerve roots bilaterally. 3. At L3-4 there is a moderate to severe central stenosis and lateral recess stenosis with mild foraminal stenosis. 4. No acute fracture or spondylolisthesis. Trace Holloway MD Lower Extremity Ultrasound 01/23/17 Signed Impressions: Service Date/Time: Monday, January 23, 2017 09:53 - CONCLUSION: Bilateral focal lower extremity DVT involving the posterior tibial veins. Angelo Garrido MD Cervical Spine MRI 01/23/17 Signed Impressions: Service Date/Time: Monday, January 23, 2017 17:01 - CONCLUSION: 1. Multilevel cervical spine degenerative changes as above. 2. Mild degrees of spinal stenosis at C3/C4-C6/C7. No cord compression or cord signal abnormality. 3. Age indeterminate left paracentral/foraminal disc protrusion at C6/C7. 4. Multilevel foraminal stenosis, most severe on the left at C6/C7. Please see individual levels above. 5. No fracture or subluxation of the cervical spine. Angelo Garrido MD Brain MRI 01/23/17 Signed Impressions: Service Date/Time: Monday, January 23, 2017 17:01 - CONCLUSION: 1. No acute stroke or other acute intracranial abnormality demonstrated. 2. Moderate severity chronic white matter changes, nonspecific but most likely related to chronic small vessel disease. 3. Few scattered tiny lacunar infarcts of the brainstem. 4. Given the findings are not entirely specific, clinical evaluation for possible multiple sclerosis recommended. Angelo Garrido MD Knee X-Ray 01/22/[id number] Signed Impressions: Service Date/Time: Sunday, January 22, 2017 21:17 - CONCLUSION: 1. Evidence of moderate to large joint effusion. 2. No acute fracture or malalignment. 3. Mild 3 compartment osteoarthritic change. Benjamin Person MD Hip and Pelvis X-Ray [id number]/22/172053 Signed Impressions: Service Date/Time: Sunday, January 22, 2017 21:10 - CONCLUSION: 1. Mild to moderate degenerative change of both hips with no acute fracture or malalignment. There is flattening and remodeling of the right humeral head. Benjamin Person MD Objective Remarks GENERAL: This is a well-nourished, well-developed patient, in no apparent distress. SKIN: Warm and dry. HEENT: Normocephalic. Pupils equal round and reactive. Nose without bleeding. Airway patent. NECK: Tracheostomy site capped. CARDIOVASCULAR: Regular rate and rhythm without murmurs, gallops, or rubs. RESPIRATORY: Diminished bases. No wheezes, rales, or rhonchi. 2L nc. O2 sat 100 % GASTROINTESTINAL: Abdomen soft, non-tender, nondistended. Bowel Sounds active x4. Fecal incontinence bag in place draining brown stool. MUSCULOSKELETAL: Extremities without clubbing, cyanosis. BUE trace edema. Notable tophi on small joints fingers and toes. NEUROLOGICAL: Awake and alert. Oriented to person. No focal neuro deficit. Moves all extremities weakly. Normal speech, minimal verbalization. Procedures IVC filter placement 01/25/2017 LP 01/26/2017 Date of Insertion: Mar 03, 2017 Line: Central Venous Catheter Side: Right Location: Internal, Jugular A/P Problem List: (1) Transverse myelitis ICD Code: G37.3 - Acute transverse myelitis in demyelinating disease of central nervous system Status: Acute (2) Septic shock ICD Code: A41.9 - Sepsis, unspecified organism; R65.21 - Severe sepsis with septic shock Status: Resolved (3) HCAP (healthcare-associated pneumonia) ICD Code: J18.9 - Pneumonia, unspecified organism (4) Acute respiratory failure with hypoxia and hypercarbia ICD Code: J96.01 - Acute respiratory failure with hypoxia; J96.02 - Acute respiratory failure with hypercapnia Status: Resolved (5) Hyperlipidemia ICD Code: E78.5 - Hyperlipidemia, unspecified Status: Chronic (6) HTN (hypertension) ICD Code: I10 - Essential (primary) hypertension (7) DVT of lower extremity, bilateral ICD Code: I82.403 - Acute embolism and thrombosis of unspecified deep veins of lower extremity, bilateral (8) Diabetes mellitus with hyperglycemia ICD Code: E11.65 - Type 2 diabetes mellitus with hyperglycemia (9) Hypocalcemia ICD Code: E83.51 - Hypocalcemia (10) Hypernatremia ICD Code: E87.0 - Hyperosmolality and hypernatremia (11) Hypokalemia ICD Code: E87.6 - Hypokalemia (12) Acute metabolic encephalopathy ICD Code: G93.41 - Metabolic encephalopathy (13) Quadriparesis ICD Code: G82.50 - Quadriplegia, unspecified Status: Acute (14) BREEZY (acute kidney injury) ICD Code: N17.9 - Acute kidney failure, unspecified (15) Diarrhea ICD Code: R19.7 - Diarrhea, unspecified (16) Abdominal pain ICD Code: R10.9 - Unspecified abdominal pain (17) Hypoglycemia ICD Code: E16.2 - Hypoglycemia, unspecified (18) Urinary retention ICD Code: R33.9 - Retention of urine, unspecified (19) Acute hypoxemic respiratory failure ICD Code: J96.01 - Acute respiratory failure with hypoxia (20) Sepsis ICD Code: A41.9 - Sepsis, unspecified organism Assessment and Plan Patient is a 62-year-old male with primary medical history of HTN, gout who came into the hospital for bilateral knee pain after a mechanical fall. Patient was found to have oblique fracture through distal right ulna. He was seen by orthopedic MD and recommended non operative treatment. Patient has been experiencing gradual lower extremity weakness and upper extremity weakness. Suspected Transverse Myelitis Acute metabolic encephalopathy - persistent - Recurrent falls and Quadriparesis secondary to suspected transverse myelitis - MRI revealed no acute stroke. He had multifocal white matter changes. Tiny lacunar infarcts of the brainstem. - Lumbar MRI report states L4-L5 disc protrusion with central canal stenosis - Patient was treated in critical care unit and received methylprednisolone 250 mg IV every 6 hours 01/27-02/02, started back on hydrocortisone 02/21/17, initially tapering to 50 mg IV every 8 hours starting 02/26 received 1 dose at 2100 prior to becoming hypotensive. Weaning hydrocortisone taper and stopped . Resumed hydrocortisone 50mg IV Q6hrly on 03/14 as patient became hypotensive following intubation on 03/13 requiring levophed. - LP 01/26 and 02/01. CSF culture negative 01/26, 02/01 Oligoclonal bands negative. CSF/serum IgG index is not elevated. VDRL nonreactive. Cryptococcal antigen negative. - Brain MRI cervical/thoracic spine with mild spinal stenosis C3/C4 to C6/ C7. No cord compression. RPR negative. - Neurology has been following, Dr. Crenshaw. Repeat CT brain 02/10 - negative. - Neurosurgery has been following, Dr. Blackwell, no cord compression recommends non operative treatment - Continue PT/OT. - Continue pain control with a bowel regimen. Acute hypoxemic respiratory failure Healthcare associated pneumonia/Aspiration Pneumonia S/P Tracheostomy placement - He was treated in critical care with Right-sided chest tube placed for pleural effusion. Orally intubated. Extubated 02/23. Reintubated 02/28. Extubated 03/11. Reintubated on 03/13. Right-sided chest tube placement 02/28 operations assistant, removed 03/05. Failed attempt to wean successfully due to volume overload and multiple organ failure. Underwent perc tracheostomy 03/14. - He was in severe sepsis that has resolved. - VQ scan 02/[address] PE[address] CT chest 02/10 - left lower lobe collapse and consolidation. - CT chest 02/27 revealed right greater than left pleural effusions. - Pulmonology following for trach care, downsized trach. Patient Capped today. Tolerating. - Albuterol/ipratropium aerosols every 4 hours with albuterol aerosols every 2 hours PRN. Systolic heart failure likely chronic with ejection fraction 20-25% Hyperlipidemia History of hypertension Elevated troponin likely type II demand ischemia, tachycardia - In critical care unit he was on pressors. Levophed on 03/09 following intubation, titrated off after starting hydrocortisone. Started hydrocortisone stress dose on 03/14 (as patient has been on steroids and was just tapered off on 03/09.) Patient had been hypotensive twice when attempting to wean off stress dose hydrocortisone in the past. EKG with nonspecific ST-T changes. 2-D echocardiogram 01/11 revealed EF 20-25%. Mild TR. Pulmonary arterial pressures were normal around 20. Troponin 6.55 on 03/02. - Likely will need stress test of heart once stable. Cannot anticoagulate due to retroperitoneal hematoma at the present time. - Currently on atenolol 25 mg twice a day. Continue amlodipine 10 mg daily. - Atorvastatin 10 mg by mouth daily for dyslipidemia. - Lasix 40mg IV Q12hrs. - Monitor BP Trend Large right retroperitoneal hematoma Erosive esophagitis Adenomatous/hyperplastic colon polyps Severe acute protein calorie malnutrition Gastritis, Diverticulosis, Hiatal hernia Internal and external hemorrhoids Diarrhea Elevated lipase - 02/27 CT chest/abdomen and pelvis - 9.4 x 7.5 renal and 16 x 12 cm right psoas muscle hematoma. Fluid around liver and spleen. Right-sided nephrolithiasis. - CTA abdomen 02/28 - possible blushing around iliac/lumbar vessels. Discussed with IR. s/p attempted embolization. - CT abdomen and pelvis 02/10 atrophic left kidney. Bilateral inguinal hernias fat-containing. Nonobstructing 12 mm right kidney stone. Repeat CT abd/ pelvis did not show evidence of obstruction. - EGD/Colonoscopy-02/22/17 showed gastritis esophagitis, hiatal hernia, diverticulosis and multiple polyps in descending colon and sigmoid which were snared biopsied. Biopsy pending. Dr. Lewis consulted for intervention if needed for elevated IAP. - PEG tube placement by . - Lansoprazole 30 mg twice a day for GI prophylaxis. - Tube feeding Nephro goal 55 - Fecal rectal collection for diarrhea. Lactinex TID. May benefit with Questran Acute kidney injury in the setting of Chronic kidney disease stage 3-4 History of uric acid kidney stones with prior stent BPH Nonfunctioning left kidney - Sloan placed due to urinary retention and worsening creatinine. Maintain Sloan secondary to urinary retention - RIOS/SPEP negative. - Urology has followed for uric acid nephrolithiasis. Recommended nephrostomy tube if obstruction. Nephrology consulted, hemodialysis per nephrology. Making urine. Due to acute illness holding tamsulosin 0.4 mg by mouth daily for BPH. - Decreased urine output, creatinine increased 04/02 to 1.67. Per nephrology , patient is on Albumin and Lasix IV. Recommends to continue with diureses Septic shock- resolved. Abscess and Suppurative thrombophlebitis left upper extremity MSSA bacteremia Klebsiella UTI ESBL positive Acute aspiration pneumonia/HCAP - Previously treated with Bactrim, ertapenem, intermittent vancomycin, nafcillin. Blood cultures 2, UA ESBL positive Klebsiella UTI. - Repeat blood cultures 2 negative and sputum 03/08 Stenotrophomonas Maltophiloa, Klebsiella Pneumoniae - Sputum 03/14 - Pseudomonas came back resistant to imipenem. - Sputum Culture Repeat 04/01/17 - Pseudomonas Aeroginosa. - ID following. Recommends Tobramycin Nebs x7 days. Signed off to reconsult PRN. Acute blood loss anemia DVT, bilateral posterior tibial vein, IVC filter Septic thrombophlebitis with occlusive thrombus mid cephalic and basilic vein side - Patient has received total of 23 PRBC, 10 FFP, 3 platelets, 1 cryo-02/28. - Ultrasound 01/23/17 - Bilateral lower extremity with occlusive posterior tibial vein DVTs. Heparin was initially started for DVT but was placed on hold due to LP with suspected traumatic tap. IVC filter was placed 01/25/17. Ultrasound LUE 02/10 occlusive thrombus mid cephalic vein, basilic veins. - Trend CBC. Stable. Diabetes mellitus History of prior adrenal insufficiency with shock - EGD colonoscopy completed 02/22. Gastritis and esophagitis, colon polyps. Started Hydrocortisone 100 mg every 8 hours 02/21/17 (Recent high dose steroids use now hypotensive, hypoglycemic), steroids had been tapered off. Resumed stress dose steroids on 03/16 as patient back on Levophed for pressor support after intubation. - Hydrocortisone 12.5mg BID - Levemir 10 units BID. Prandial insulin Aspart 5units TIDAC - Continue sliding scale insulin.. Right distal ulna fracture. - Dr. Nathan with orthopedics has evaluated and recommended nonoperative management. - Right wrist splint in place. Full code. Has IVC filter. Pharmacological prophylaxis is on hold due to retroperitoneal hematoma. Discharge Planning Plan is to wean off trach, increase physical activity and DC home with [facility]. Problem Qualifiers (1) Hyperlipidemia: Qualified Codes: E78.5 - Hyperlipidemia, unspecified (2) HTN (hypertension): Qualified Codes: I10 - Essential (primary) hypertension (3) Diabetes mellitus with hyperglycemia: Qualified Codes: E11.65 - Type 2 diabetes mellitus with hyperglycemia (4) Diarrhea: Qualified Codes: A09 - Infectious gastroenteritis and colitis, unspecified (5) Abdominal pain: Qualified Codes: R10.84 - Generalized abdominal pain (6) Sepsis: Qualified Codes: A41.9 - Sepsis, unspecified organism Stacie Branch Apr 04, 2017 09:44
[2017-04-04 09:48] LABS: BICARBONATE 26.5 MEQ/L (21.0-32.0); POTASSIUM 3.3 MEQ/L (3.5-5.1)
[2017-04-04] MEDS: ALBUMIN 25% INJ 100 ML IV SCH ×2 (09:52→21:00)
--- NOTE | 2017-04-04 12:57 | HHI.HCPN ---
Reason for visit a. To assist with evaluation and management of symptoms including: shortness of breath, pain, debility b. To assist medical decision maker(s) with: better understanding of current medical conditions; weighing benefits/burdens of medical treatment options; making medical treatment decisions. Subjective/Interval History Patient seen in his room, awake and in bed. Patient has passy maxime valve today and is able to communicate. No signs of respiratory distress noted. Speech clear. Patient alert and oriented to person, and not to place and situation. Patient is able to answer simple questions appropriately and unable to answer complex questions. Patient complaining of generalized pain and has some facial grimacing. Patient is afebrile. SBP 120s-140s. O2 saturation high 90s on 3L NC. Laboratory workup revealing sodium 135, potassium 3.3, BUN/creatinine 85/1.87, random glucose 168, calcium 8.5. No recent imaging. Case discussed with bedside ROHINI Santacruz and respiratory therapist. . Advance Directives Living Will: Never completed Health Care Surrogate: Never completed Durable Power of Animal Health Technician: Never completed Advance Directive Specifics Documented care wishes: No known documented care wishes have been completed. . Objective Vital Signs Date Time Temp Pulse Resp B/P (MAP) Pulse Ox O2 Delivery O2 Flow Rate FiO2 04/04/17 10:47 91 04/04/17 08:28 97 T-piece 5.00 30 04/04/17 08:00 97.2 97 16 148/82 (104) 97 04/04/17 06:00 96 T-Piece 5.00 28 04/04/17 04:00 98.0 95 18 122/84 (97) 97 04/04/17 03:45 100 04/04/17 03:07 18 04/04/17 01:00 97.7 83 18 118/76 (90) 95 04/03/17 21:46 95 T-Piece 35 Humidified 04/03/17 21:30 96 T-Piece 5.00 28 04/03/17 20:00 97.2 98 22 120/67 (84) 99 04/03/17 16:15 98.1 92 18 125/67 (86) 99 04/03/17 16:14 97 T-piece 6.00 35 04/03/17 12:52 98.1 89 18 122/75 (91) 96 Intake & Output 04/04/17 04/04/17 07:00 19:00 Intake Total 1700 ml Output Total 1800 ml Balance -100 ml Tube Feeding 500 ml Other 1200 ml Output Urine Total 1800 ml Tube Feeding Residual Discard 0 ml Physical Exam CONSTITUTIONAL/GENERAL: This is an ill-looking patient, trached capped on 3L NC TUBES/LINES/DRAINS: PEG tube, #6Tracheostomy, PIVs, FC SKIN: No jaundice. Ecchymoses on upper extremities. Sacral pressure wound and L heel pressure injury. Wound to anterior neck with foam dressing- tracheostomy insertion area. Afebrile. Not diaphoretic. HEAD: Atraumatic. Normocephalic. EYES: Pupils equal and round, slight reaction.No scleral icterus. No injection or drainage. Fundi not examined. ENT: Trached. Nose without bleeding or purulent drainage. Moist oral mucosa. NECK: Trachea midline. #6 Tracheostomy midline. Wound to anterior neck - tracheostomy insertion area CARDIOVASCULAR: Regular rate and rhythm without murmurs, gallops, or rubs. No JVD. RESPIRATORY/CHEST: Symmetric, unlabored respirations. rhonchi to auscultation. Breath sounds equal bilaterally. Tracheostomy on T-bruce 28%saturating in the high 90s. GASTROINTESTINAL: Abdomen soft, non-tender, nondistended. No guarding. Bowel sounds present. Nepro-Goal infusing at 55ml/hr GENITOURINARY: Without palpable bladder distension. Sloan catheter in with clear urine. Scrotal edema. MUSCULOSKELETAL: Gout tophi to fingers, knees, elbows and both ankles. Edema to joints of both hands. Trace edema to BLE NEUROLOGICAL: Trached and capped. Alert and oriented to person only, confused to place, time and situation. Followed simple commands with all 4 extremities PSYCHIATRIC: No obvious anxiety/depression. no apparent hallucinations or other psychotic thought process. . Diagnostic Tests Laboratory Laboratory Tests Test 04/02/17 06:40 04/03/17 06:45 04/04/17 08:49 White Blood Count 17.4 TH/MM3 (4.0-11.0) 17.1 TH/MM3 (4.0-11.0) Red Blood Count 3.23 MIL/MM3 (4.50-5.90) 3.18 MIL/MM3 (4.50-5.90) Hemoglobin 9.1 GM/DL (13.0-17.0) 9.0 GM/DL (13.0-17.0) Hematocrit 28.7 % (39.0-51.0) 27.9 % (39.0-51.0) Mean Corpuscular Volume 88.7 FL (80.0-100.0) 87.9 FL (80.0-100.0) Mean Corpuscular Hemoglobin 28.3 PG (27.0-34.0) 28.5 PG (27.0-34.0) Mean Corpuscular Hemoglobin Concent 31.9 % (32.0-36.0) 32.4 % (32.0-36.0) Red Cell Distribution Width 16.0 % (11.6-17.2) 16.0 % (11.6-17.2) Platelet Count 130 TH/MM3 (150-450) 132 TH/MM3 (150-450) Mean Platelet Volume 9.9 FL (7.0-11.0) 10.1 FL (7.0-11.0) Blood Urea Nitrogen 68 MG/DL (7-18) 76 MG/DL (7-18) 85 MG/DL (7-18) Creatinine 1.45 MG/DL (0.60-1.30) 1.67 MG/DL (0.60-1.30) 1.87 MG/DL (0.60-1.30) Random Glucose 330 MG/DL (74-106) 257 MG/DL (74-106) 168 MG/DL (74-106) Calcium Level 7.6 MG/DL (8.5-10.1) 8.1 MG/DL (8.5-10.1) 8.5 MG/DL (8.5-10.1) Magnesium Level 1.8 MG/DL (1.5-2.5) 1.9 MG/DL (1.5-2.5) Sodium Level 136 MEQ/L (136-145) 136 MEQ/L (136-145) 135 MEQ/L (136-145) Potassium Level 3.8 MEQ/L (3.5-5.1) 3.8 MEQ/L (3.5-5.1) 3.3 MEQ/L (3.5-5.1) Chloride Level 101 MEQ/L (98-107) 100 MEQ/L (98-107) 98 MEQ/L (98-107) Carbon Dioxide Level 28.2 MEQ/L (21.0-32.0) 28.7 MEQ/L (21.0-32.0) 26.5 MEQ/L (21.0-32.0) Anion Gap 7 MEQ/L (5-15) 7 MEQ/L (5-15) 11 MEQ/L (5-15) Estimat Glomerular Filtration Rate 49 ML/MIN (>89) 42 ML/MIN (>89) 37 ML/MIN (>89) Result Diagram: 04/03/17 0645 04/04/17 0849 Microbiology Microbiology Date/Time Source Procedure Growth Status 04/01/17 12:55 Sputum Oral Tracheal Aspirate Gram Stain - Final Complete 04/01/17 12:55 Sputum Culture - Final Pseudomonas Aeruginosa Complete Procedures 01/25/2017- Retrievable IVC Filter placement 01/26/17-lumbar puncture with fluoroscopy-by interventional radiology 02/01/17- lumbar puncture fluoroscopy by interventional radiology 02/10/17- Endotracheal Intubation 02/10/17-left IJ central venous line placed 02/10/17-left femoral arterial line placed 02/11/17-Diagnostic and therapeutic bronchoscopy with bronchoalveolar lavage 02/11/17-Left upper extremity incision and debridement with excision of septic cephalic vein 02/13/17- Extubated 02/20/17- endotracheal intubation 02/20/17- Left subclavian central line placement 02/20/17-Right radial A-line placement 02/22/17-EGD/colonoscopy 02/28/17-right radial a line 02/28/17- Endotracheal intubation 02/28/17- right sided introducer catheter placement 02/28/17- Right IJ central line placement 02/28/17-Right chest tube placement 02/28/17- Embolization of inferior and superior sacral branches of right internal iliac artery 03/01/17- Hemodialysis access catheter 03/03/17-Right IJ central line placement 03/11/17-Extubated 03/13/17- Endotracheal intubation 03/14/17-Tracheostomy placement 03/15/17-PEG tube placement . Assessment and Plan Disease Oriented Problem List: (1) Acute respiratory failure (2) Septic shock (3) Aspiration pneumonia (4) Acute renal failure (5) CKD (chronic kidney disease) stage 3, GFR 30-59 ml/min (6) Cardiomyopathy (7) DVT of lower extremity, bilateral (8) Thrombophlebitis arm (9) Diabetes mellitus (10) Gout (11) HTN (hypertension) (12) Hyperlipidemia Symptom Scale: (1) Shortness of breath 0-10 Scale: Unable to quantify Comment: Trach downsized to #6. Currently capped on 3L NC . (2) Debility 0-10 Scale: Unable to quantify Comment: Progressive. . (3) Pain 0-10 Scale: Unable to quantify Comment: History of falls, gout, arthritis, and currently bedbound. . Pertinent Non-Medical Issues Psychosocial:Patient was born and raised in [place], [place]. Patient was once for 20 years, now and has 2 adult sons. 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 He recently resigned due to failing health. Spiritual: No adventism affiliation Legal: Per [place] statutes, in the absence of written advanced directives healthcare proxy decision making falls to the patient's 2 adult children. Patient's son (Davie) lives locally and wishes to participate in the role of the healthcare proxy decision maker. Palliative care has attempted to contact Arnel, has not call back. Patient`s sister Deb and patients brother verbalized that they have been updating Arnel on patient`s medical status. Ethical issues impacting care: No known ethical issues impacting care at this time. . Important Contacts Son-Davie Kerr - SonDanna Kerr- -cell -home Sister-Deb Patricio . Prognosis Mr Kerr is a 62 years old male with a past medical history of hypertension, asthma, diabetes, hyperlipidemia, chronic kidney disease and gout. Patient presented to the ED on 01/22/17 complaining of bilateral knee and right arm pain after a mechanical fall 4 or 5 days prior to coming to the ER. Clinical course complicated with increased weakness leading to numerous diagnostic work ups for possible transverse myelitis, DVTs, retroperitoneal hematoma, aspiration pneumonia, intubation x 4 times, septic and hemorrhagic shock requiring support with pressors and multiple pRBC, FFP transfusions as well as platelets and cryo , renal failure requiring hemodialysis and sacral wound Given ongoing comorbidities, and prolonged hospitalization, patient remains at risk for further complications, deterioration and decline. Code Status: Full Code Plan PLAN: Legal decision maker: Patient is currently trached with a passy maxime valve but does not seem to understand his current medical condition and is probably not able to make his own medical decisions at this time. Patient has 2 adult sons Davie Kerr and Arnel Kerr. According to [place] Statute, his two aforementioned sons will serve as his health care proxys. Patient`s son Davie is acting in the role of HCP decision maker independently at this time given that he is the one who is reasonably available for consultation. Goals: 04/04/17- Remain Aggressive. Patient has a Passy Maxime valve today. Patient alert, awake and oriented to person. Patient intermittently confused, answers simple questions appropriately but not able to answer complex questions. Patient seems not to comprehend his current medical situation. Patient was denied at [place]. CODE STATUS: Full Code SYMPTOMS: * Shortness of breath: Multifactorial. Patient has had aspiration pneumonia. Patient has been intubated 4 times this hospitalization. Patient has a tracheostomy. Now requiring T-Bruce 35%. Patient on duonebs. Patient also on Hydrocortisone 50mg q 6 hours. Garbage Pick Up Man following. Trach downsized to a 6. Patient has a Passy Maxime valve on today and is on 3L NC- No signs of respiratory distress noted. Wound care following for wound to tracheostomy site. * Pain: Patient presented initially complaining of pain to right wrist and bilateral knees after a mechanical fall. Patient has a history of gout, arthritis, multiple falls and is currently bedbound. Patient`s pain medication dose decreased from Oxycodone 10mg to Oxycodone 5mg q 4 hours ATC. Patient also on Hydrocortisone. Denies pain today. * Debility: Progressive. Patient has had decline in his health for the past 4 months, including progressively increased weakness and difficulty ambulating and prolonged hospitalization with multiple setbacks. Patient remains at high risk for further physical deconditioning and debility. PT and OT following with patient. PT and OT following. Patient will benefit from getting OOB to a stretcher chair . PT and OT following. Recommending Speech therapy consultation. Palliative care will continue to follow the patient during hospital course as condition evolves, to assist patient/decision-maker with understanding of their medical conditions, weighing benefits/burdens of treatment options, for clarification of goals of treatment. Additionally will assist with any symptoms of palliative concern. . Aftab Cartwright Apr 04, 2017 12:57
--- NOTE | 2017-04-04 14:03 | HHI.IDPN ---
Subjective Subjective Remarks Patient is a 62-year-old male, admitted to the hospital for evaluation of pain in his right wrist. He gave a history of falling about a week ago and apparently had immediate pain in the right wrist. He did not seek any medical attention initially because reportedly he was very busy. He eventually presented, and he was found to have a distal ulnar fracture on plain films. He also had some redness and swelling. Orthopedics saw the patient, and was being treated conservatively with the splint. During this hospitalization also he started complaining of generalized weakness but more so in his lower extremity than his upper extremity. He had swelling in both lower extremity which revealed evidence of DVT in the posterior tibial veins. Neurology had seen the patient and he underwent lumbar puncture which apparently was traumatic. Patient was therefore not given anticoagulation because of the traumatic LP, and he underwent placement of an IVC filter on January 25. Patient had another lumbar puncture on February 01. He was felt to have transverse myelitis, and he was given high-dose IV Solu-Medrol from January 27 to February 02. There was apparently some improvement in his weakness. The imaging studies done for his weakness showed some spinal stenosis, and neurosurgery was consult that and recommended that there was no surgical intervention to be done. Patient has been stabilizing, but last night apparently deteriorated, and he ended up getting intubated, and had significant hypotension requiring pressors. There was also an ultrasound done of his left upper extremity which showed DVT, and there was evidence of superior 2 thrombophlebitis. Vascular surgery was consult to it and he had IND on his left upper extremity. Patient has had some fevers since yesterday. 2 blood cultures were done yesterday and they're now reported as growing gram-positive cocci in Bruce in clusters. He is currently sedated and intubated. He is on Levophed and vasopressin. A central line was placed as well as a femoral a line. He apparently had an IV in his left upper extremity and that was removed yesterday. Patient also has history of chronic kidney disease, and nephrology evaluated the patient. He was just being monitored for his renal insufficiency. Infectious disease consultation has been requested to evaluate the patient. Notes reviewed Temps ok BP good Off Abx CXR clear Not SOB Sputum with PSAE Antibiotics Fortaz IV - finished 03/27 Tobra preciado Past Medical History Reviewed Allergies: Coded Allergies: levofloxacin (Verified Allergy, Severe, 01/22/17) Objective . Vital Signs Date Time Temp Pulse Resp B/P (MAP) Pulse Ox O2 Delivery O2 Flow Rate FiO2 04/04/17 10:47 91 04/04/17 08:28 97 T-piece 5.00 30 04/04/17 08:00 97.2 97 16 148/82 (104) 97 04/04/17 06:00 96 T-Piece 5.00 28 04/04/17 04:00 98.0 95 18 122/84 (97) 97 04/04/17 03:45 100 04/04/17 03:07 18 04/04/17 01:00 97.7 83 18 118/76 (90) 95 04/03/17 21:46 95 T-Piece 35 Humidified 04/03/17 21:30 96 T-Piece 5.00 28 04/03/17 20:00 97.2 98 22 120/67 (84) 99 04/03/17 16:15 98.1 92 18 125/67 (86) 99 04/03/17 16:14 97 T-piece 6.00 35 04/04/17 04/04/17 04/05/17 15:00 23:00 07:00 Intake Total 800 ml Balance 800 ml Other 800 ml . Laboratory Tests Test 04/03/17 06:45 White Blood Count 17.1 TH/MM3 Red Blood Count 3.18 MIL/MM3 Hemoglobin 9.0 GM/DL Hematocrit 27.9 % Mean Corpuscular Volume 87.9 FL Mean Corpuscular Hemoglobin 28.5 PG Mean Corpuscular Hemoglobin Concent 32.4 % Red Cell Distribution Width 16.0 % Platelet Count 132 TH/MM3 Mean Platelet Volume 10.1 FL Laboratory Tests Test 04/03/17 06:45 04/04/17 08:49 Blood Urea Nitrogen 76 MG/DL 85 MG/DL Creatinine 1.67 MG/DL 1.87 MG/DL Random Glucose 257 MG/DL 168 MG/DL Calcium Level 8.1 MG/DL 8.5 MG/DL Magnesium Level 1.9 MG/DL Sodium Level 136 MEQ/L 135 MEQ/L Potassium Level 3.8 MEQ/L 3.3 MEQ/L Chloride Level 100 MEQ/L 98 MEQ/L Carbon Dioxide Level 28.7 MEQ/L 26.5 MEQ/L Anion Gap 7 MEQ/L 11 MEQ/L Estimat Glomerular Filtration Rate 42 ML/MIN 37 ML/MIN Imaging Chest X-Ray 03/14/17 0000 Signed Impressions: Service Date/Time: Tuesday, March 14, 2017 13:41 - CONCLUSION: 1. Tracheostomy in good position. 2. Left lower lung infiltrates and left pleural effusion. Candido Patton MD Aortography 02/28/17 0000 Signed Impressions: Service Date/Time: Tuesday, February 28, 2017 08:01 - CONCLUSION: 1. Active hemorrhage from distal right lateral sacral and iliolumbar branches successfully coil and Gelfoam embolized, as above. Juan Bhakta MD Abdomen/Pelvis CT 02/28/17 0000 Signed Impressions: Service Date/Time: Tuesday, February 28, 2017 06:51 - CONCLUSION: 1. The right retroperitoneal hematoma has increased in size, as above. There are 2 serpiginous arterially enhancing structures visualized, one in the right psoas muscle and another extending into the hematoma at the right iliac fossa. These could represent sites of continued active bleeding. 2. Stable moderate size left and small right pleural effusion with associated compressive atelectasis. 3. Stable small volume of free fluid in the abdomen and pelvis. There is also anasarca. The findings concerning the retroperitoneal hematoma were discussed with Dr. Aguiar via telephone at approximately 7: 10 AM on 02/28/2017. Angelo Allen MD Chest CT 02/27/17 0000 Signed Impressions: Service Date/Time: Monday, February 27, 2017 18:12 - CONCLUSION: 1. Bilateral pleural effusions with bibasilar atelectasis, left greater than right. Tom Sanchez MD Abdomen X-Ray 02/26/17 0000 Signed Impressions: Service Date/Time: Sunday, February 26, 2017 14:52 - CONCLUSION: 1. Nonobstructive bowel gas pattern. Juan Bhakta MD Upper Extremity Ultrasound 02/10/17 0000 Signed Impressions: Service Date/Time: Friday, February 10, 2017 18:46 - CONCLUSION: Occlusive thrombus in the cephalic and basilic veins. Benjamin Person MD Lung Scan- Nuclear Medicine 02/10/17 0000 Signed Impressions: Service Date/Time: Friday, February 10, 2017 22:17 - CONCLUSION: Low probability pulmonary embolism. Candido Patton MD Head CT 02/10/17 0000 Signed Impressions: Service Date/Time: Friday, February 10, 2017 23:51 - CONCLUSION: Negative noncontrast CT brain. Candido Patton MD Wrist X-Ray 02/06/17 Signed Impressions: Service Date/Time: Monday, February 06, 2017 12:50 - CONCLUSION: Minimally displaced distal radius and ulnar fractures. Armando Dodd MD Lumbar Puncture Fluoroscopy 02/01/17 0000 Signed Impressions: Service Date/Time: January 09:35 - CONCLUSION: Uncomplicated fluoroscopically guided lumbar puncture. CSF was clear. Nabeel Peralta MD Head Magnetic Resonance Angiography 01/27/17 0000 Signed Impressions: Service Date/Time: Friday, January 27, 2017 10:33 - CONCLUSION: No intracranial vascular abnormality is identified. There is no aneurysm visualized. Angelo Allen MD IVC Filter Placement X-Ray 01/25/17 Signed Impressions: Service Date/Time: January 10:29 - CONCLUSION: Uncomplicated inferior vena cava filter placement as above. Yung Fowler MD Thoracic Spine MRI 01/24/17 0000 Signed Impressions: Service Date/Time: Tuesday, January 24, 2017 22:29 - CONCLUSION: 1. Mild degenerative spondylosis most prominently at T11-L1 with slight effacement of the anterior thecal sac and left lateral recess. No significant neural foraminal stenosis. 2. No acute fracture. Juan Bhakta MD Renal Ultrasound 01/23/17 0000 Signed Impressions: Service Date/Time: Monday, January 23, 2017 08:53 - CONCLUSION: 1. Evidence of chronic parenchymal disease of both kidneys. No obstructive uropathy or other acute abnormality demonstrated. 2. Trace ascites, nonspecific. Angelo Garrido MD Lumbar Spine MRI 01/23/17 0000 Signed Impressions: Service Date/Time: Monday, January 23, 2017 17:01 - CONCLUSION: 1. At L4-5 is a broad-based disc protrusion with severe central canal and lateral recess stenosis and flattening of the exiting right L4 nerve root. 2. L5-S1 there is a disc protrusion and moderate stenosis with flattening of the exiting L5 nerve roots bilaterally. 3. At L3-4 there is a moderate to severe central stenosis and lateral recess stenosis with mild foraminal stenosis. 4. No acute fracture or spondylolisthesis. Trace Holloway MD Lower Extremity Ultrasound 01/23/17 Signed Impressions: Service Date/Time: Monday, January 23, 2017 09:53 - CONCLUSION: Bilateral focal lower extremity DVT involving the posterior tibial veins. Angelo Garrido MD Cervical Spine MRI 01/23/17 Signed Impressions: Service Date/Time: Monday, January 23, 2017 17:01 - CONCLUSION: 1. Multilevel cervical spine degenerative changes as above. 2. Mild degrees of spinal stenosis at C3/C4-C6/C7. No cord compression or cord signal abnormality. 3. Age indeterminate left paracentral/foraminal disc protrusion at C6/C7. 4. Multilevel foraminal stenosis, most severe on the left at C6/C7. Please see individual levels above. 5. No fracture or subluxation of the cervical spine. Angelo Garrido MD Brain MRI 01/23/17 Signed Impressions: Service Date/Time: Monday, January 23, 2017 17:01 - CONCLUSION: 1. No acute stroke or other acute intracranial abnormality demonstrated. 2. Moderate severity chronic white matter changes, nonspecific but most likely related to chronic small vessel disease. 3. Few scattered tiny lacunar infarcts of the brainstem. 4. Given the findings are not entirely specific, clinical evaluation for possible multiple sclerosis recommended. Angelo Garrido MD Knee X-Ray 01/22/[id number] Signed Impressions: Service Date/Time: Sunday, January 22, 2017 21:17 - CONCLUSION: 1. Evidence of moderate to large joint effusion. 2. No acute fracture or malalignment. 3. Mild 3 compartment osteoarthritic change. Benjamin Person MD Hip and Pelvis X-Ray [id number]/22/[id number] Signed Impressions: Service Date/Time: Sunday, January 22, 2017 21:10 - CONCLUSION: 1. Mild to moderate degenerative change of both hips with no acute fracture or malalignment. There is flattening and remodeling of the right humeral head. Benjamin Person MD Physical Exam GENERAL: Awake and following commands, NAD, on T-piece SKIN: Cool and dry. No generalized rash. EYES: [place] conjunctiva. No petechia or hemorrhage. EARS, NOSE AND THROAT: Nose without bleeding or purulent nasal discharge. Dry oral mucosa NECK: Trachea midline. Supple and no meningeal signs. Trach site ok CARDIOVASCULAR: Regular rate and rhythm. Soft heart sounds. No murmurs RESPIRATORY: Coarse BS bilaterally, decreased at bases. ABDOMEN: Soft, mildly distended, PEG site ok. Mild tenderness, no guarding EXTREMITIES: No clubbing, cyanosis. Edema feet better; edema hands better : very swollen scrotum, has a lot of sediment in his cath tubing NEUROLOGICAL: awake and following commands PSYCHIATRIC: Calm and cooperative LINE: Lines with no evidence of infection Assessment & Plan Remarks IMPRESSION Fevers - resolved - had Kleb and Sten mal in sputum, S/P Rx - now with Pseudomonas S/P Rx 03/27 Leukocytosis HCAP, Pseudomonas now, completed Rx 03/27 - previously Kleb and Sten mal, S/P Rx with Bactrim Shock, resolved Large R retroperitoneal bleed, S/P multiple transfusions and S/P coiling of bleeders Elevated amylase and lipase, better Anemia, due to bleed, retroperitoneal MSSA sepsis, due to suppurative thrombophlebitis LUE, S/P I and D and excision of portion of cephalic vein - S/P Rx Respiratory failure, has had several intubations - reintubated again 02/28, extubated 03/11 - reintubated again - S/P trach 03/14 Recent Rx 7 days high dose solumedrol for transverse myelitis Wu LE DVT has IVC filter placed 01/25 - ?hypercoagulable state Chronic kidney disease, worsening creatinine - shock and compression of ureter by hematoma Known DM, HTN Gouty tophi both hands and feet Diarrhea, C diff negative UTI, GNR - repeat UA better, but a lot of sediment in the urine Thrombocytopenia, no evidence of DIC, ?meds, ?infection, ?due to bleed - improving Low grade temps, ?plugging, CXR clear, no central line - has PSAEin sputum, ?colonization or tracheobronchitis RECOMMENDATION S/P Rx for MSSA sepsis S/P Rx PNA Tobra nebs x 7 days Monitor progress Seems clinically stable from ID standpoint I will be available prn Please call if with any new ID issue or question Irene Edwards MD Apr 04, 2017 14:03
--- NOTE | 2017-04-04 14:24 | HHI.NPPN ---
Subjective History of Present Illness 61-year-old with history of urinary stone Additional Remarks Patient had trach on trach valve , not in distress. Review of Systems General Constitutional: Fatigue Objective Data Data 04/04/17 04/05/17 19:00 07:00 Intake Total 800 ml Balance 800 ml Other 800 ml Vital Signs Date Time Temp Pulse Resp B/P (MAP) Pulse Ox O2 Delivery O2 Flow Rate FiO2 04/04/17 10:47 91 04/04/17 08:28 97 T-piece 5.00 30 04/04/17 08:00 97.2 97 16 148/82 (104) 97 04/04/17 06:00 96 T-Piece 5.00 28 04/04/17 04:00 98.0 95 18 122/84 (97) 97 04/04/17 03:45 100 04/04/17 03:07 18 04/04/17 01:00 97.7 83 18 118/76 (90) 95 04/03/17 21:46 95 T-Piece 35 Humidified 04/03/17 21:30 96 T-Piece 5.00 28 04/03/17 20:00 97.2 98 22 120/67 (84) 99 04/03/17 16:15 98.1 92 18 125/67 (86) 99 04/03/17 16:14 97 T-piece 6.00 35 -: 04/03/17 0645 04/04/17 0849 Physical Exam General Appearance: Pale Eyes Eye Exam: Pupils Equal Throat Throat Exam: Oral Mucosa [place] & Moist Neck Neck Exam: Neck Supple Pulmonary Resp Exam: Clear Bilaterally Cardiology CV Exam: Normal Sinus Rhythm Gastrointestinal/Abdomen GI Exam: Non-Tender, Distended Extremeties Extremities Exam: Moderate Edema, Pitting Edema Neurologic Neuro Exam: Awake Assessment/Plan Problem List: (1) Acute renal failure ICD Codes: N17.9 - Acute kidney failure, unspecified Status: Acute Plan: Patient developed Hypotension,sepsis staph aureus respiratory failure and increase WBC. 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 infection playing a role has colonize airway Pseudomonas growing UOP improved with Lasix Cr higher continue to diurese Cr higher 1.8 Rx underlying infection? (2) CKD (chronic kidney disease) stage 3, GFR 30-59 ml/min ICD Codes: N18.3 - Chronic kidney disease, stage 3 (moderate) Status: Chronic Plan: Ultrasound revealed chronic kidney disease there is no kidney stones (3) Diabetes ICD Codes: E11.9 - Type 2 diabetes mellitus without complications Plan: Continue to monitor (4) Distal end of ulna fracture, closed ICD Codes: S52.609A - Unspecified fracture of lower end of unspecified ulna, initial encounter for closed fracture Status: Acute Plan: Orthopedic is following Problem Qualifiers (1) Acute renal failure: Qualified Codes: N17.9 - Acute kidney failure, unspecified Laura Liao MD Apr 04, 2017 14:24
[2017-04-04] MEDS: POTASSIUM CHLORIDE 25 MEQ EFFERVESCENT TAB PO SCH ×2 (14:52→21:00)
[2017-04-04] MEDS: ATORVASTATIN 10 MG TAB PO SCH (22:35)
[2017-04-05] VITALS (9 sets, daily range): BP systolic 124–137; BP diastolic 60–70; PULSE 87–112; RESP 18–20; TEMP 97.5–100; O2SAT 95–98
[2017-04-05] MEDS: RESP: ALBUTEROL 2.5 MG/IPRATROPIUM 0.5 MG NEB (SCH) NEB ×6 (00:13→23:44)
[2017-04-05] MEDS: oxyCODONE HCL ORAL CONC 5 MG/0.25 ML SYRINGE PO SCH ×6 (03:09→21:35)
[2017-04-05] MEDS: FREE WATER G-TUBE SCH ×6 (04:00→20:00)
[2017-04-05] MEDS: ALPRAZolam 0.25 MG TAB PO PRN (06:31)
[2017-04-05] MEDS: ALBUMIN 25% INJ 100 ML IV SCH (07:58)
[2017-04-05] MEDS: SODIUM CHLORIDE 0.9% FLUSH 10 ML FLUSH IV FLUSH SCH ×3 (07:59→21:00)
[2017-04-05 08:18] LABS: HEMATOCRIT 25.3 % (39.0-51.0); MEAN CELL VOLUME 87.2 FL (80.0-100.0); MEAN CORPUSCULAR HEMOGLOBIN 29.1 PG (27.0-34.0); MEAN CORPUSCULAR HGB CONC 33.4 % (32.0-36.0); PLATELET COUNT 167 TH/MM3 (150-450); RED CELL DISTRIBUTION WIDTH 15.8 % (11.6-17.2); REVIEW FLAG FINAL; WHITE BLOOD COUNT 11.4 TH/MM3 (4.0-11.0)
[2017-04-05 08:43] LABS: BICARBONATE 27.6 MEQ/L (21.0-32.0); POTASSIUM 3.5 MEQ/L (3.5-5.1)
--- NOTE | 2017-04-05 08:51 | HHI.PR ---
Subjective Remarks Follow-up visit metabolic encephalopathy, transverse myelitis, acute respiratory failure status post tracheostomy. Patient seen and examined today. Laying in bed, drowsy. Minimal verbalization but this repetitive with words. Able to follow some commands and responds to some question. Occasional cough noted, weak. Denies pain or discomfort. Denies shortness of breath or dyspnea. Denies abdominal pain. Informed by nursing earlier if patient has a dressing stuck into his tracheostomy site. Patient was seen with OptiFoam under tracheostomy wagner. Patient has some erosion of skin, and sloughing at the edge of the tracheostomy wagner, OptiFoam serves as a barrier for cushion to avoid further damage of the skin. Site was cleansed with normal saline and OptiFoam was placed. Objective Vitals Vital Signs Date Time Temp Pulse Resp B/P (MAP) Pulse Ox O2 Delivery O2 Flow Rate FiO2 04/05/17 06:02 99.5 112 20 137/69 (91) 97 04/05/17 01:34 99.0 102 18 136/64 (88) 95 04/05/17 00:13 96 Nasal Cannula 2.00 04/04/17 22:03 98.7 101 20 184/84 (117) 98 04/04/17 21:10 100 Nasal Cannula 2.00 04/04/17 19:00 Nasal Cannula 3.00 30 04/04/17 16:00 98.9 105 16 162/74 (103) 97 04/04/17 15:20 96 Nasal Cannula 3.00 04/04/17 12:00 98.9 93 16 135/67 (89) 98 04/04/17 10:47 91 I/O 04/04/17 04/04/17 04/04/17 04/05/17 04/05/17 04/05/17 07:00 15:00 23:00 07:00 15:00 23:00 Intake Total 1700 ml 800 ml Output Total 1800 ml 1400 ml 600 ml Balance -100 ml 800 ml -1400 ml -600 ml Tube Feeding 500 ml Other 1200 ml 800 ml Output Urine Total 1800 ml 1400 ml 600 ml Result Diagram: 04/05/17 0802 04/05/17 0802 Imaging Last Impressions Renal Ultrasound 04/02/17 0000 Signed Impressions: Service Date/Time: Sunday, April 02, 2017 16:59 - CONCLUSION: Limited exam with the left kidney being unable to be evaluated in the bladder not distended. There do appear to be multiple shadowing stones at the right kidney without hydronephrosis. Angelo Manzo MD Chest X-Ray 04/01/17 0000 Signed Impressions: Service Date/Time: Saturday, April 01, 2017 23:42 - CONCLUSION: Moderate-sized left pleural effusion. Tracheostomy tube in good position. Lungs are grossly clear. Duy Genao MD Wrist X-Ray 03/27/17 0000 Signed Impressions: Service Date/Time: Monday, March 27, 2017 13:21 - CONCLUSION: 1. No acute fracture is identified. A portion of the previously documented distal ulna fracture remains visualized. 2. 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 Angelo Allen MD Aortography 02/28/17 0000 Signed Impressions: Service Date/Time: Tuesday, February 28, 2017 08:01 - CONCLUSION: 1. Active hemorrhage from distal right lateral sacral and iliolumbar branches successfully coil and Gelfoam embolized, as above. Juan Bhakta MD Abdomen/Pelvis CT 02/28/17 0000 Signed Impressions: Service Date/Time: Tuesday, February 28, 2017 06:51 - CONCLUSION: 1. The right retroperitoneal hematoma has increased in size, as above. There are 2 serpiginous arterially enhancing structures visualized, one in the right psoas muscle and another extending into the hematoma at the right iliac fossa. These could represent sites of continued active bleeding. 2. Stable moderate size left and small right pleural effusion with associated compressive atelectasis. 3. Stable small volume of free fluid in the abdomen and pelvis. There is also anasarca. The findings concerning the retroperitoneal hematoma were discussed with Dr. Aguiar via telephone at approximately 7: 10 AM on 02/28/2017. Angelo Allen MD Chest CT 02/27/17 0000 Signed Impressions: Service Date/Time: Monday, February 27, 2017 18:12 - CONCLUSION: 1. Bilateral pleural effusions with bibasilar atelectasis, left greater than right. Tom Sanchez MD Abdomen X-Ray 02/26/17 0000 Signed Impressions: Service Date/Time: Sunday, February 26, 2017 14:52 - CONCLUSION: 1. Nonobstructive bowel gas pattern. Juan Bhakta MD Upper Extremity Ultrasound 02/10/17 Signed Impressions: Service Date/Time: Friday, February 10, 2017 18:46 - CONCLUSION: Occlusive thrombus in the cephalic and basilic veins. Benjamin Person MD Lung Scan-V Nuclear Medicine 02/10/17 Signed Impressions: Service Date/Time: Friday, February 10, 2017 22:17 - CONCLUSION: Low probability pulmonary embolism. Candido Patton MD Head CT 02/10/17 Signed Impressions: Service Date/Time: Friday, February 10, 2017 23:51 - CONCLUSION: Negative noncontrast CT brain. Candido Patton MD Lumbar Puncture Fluoroscopy 02/01/17 Signed Impressions: Service Date/Time: January 09:35 - CONCLUSION: Uncomplicated fluoroscopically guided lumbar puncture. CSF was clear. Nabeel Peralta MD Head Magnetic Resonance Angiography 01/27/17 Signed Impressions: Service Date/Time: Friday, January 27, 2017 10:33 - CONCLUSION: No intracranial vascular abnormality is identified. There is no aneurysm visualized. Angelo Allen MD IVC Filter Placement X-Ray 01/25/17 Signed Impressions: Service Date/Time: January 10:29 - CONCLUSION: Uncomplicated inferior vena cava filter placement as above. Yung Fowler MD Thoracic Spine MRI 01/24/17 Signed Impressions: Service Date/Time: Tuesday, January 24, 2017 22:29 - CONCLUSION: 1. Mild degenerative spondylosis most prominently at T11-L1 with slight effacement of the anterior thecal sac and left lateral recess. No significant neural foraminal stenosis. 2. No acute fracture. Juan Bhakta MD Lumbar Spine MRI 01/23/17 Signed Impressions: Service Date/Time: Monday, January 23, 2017 17:01 - CONCLUSION: 1. At L4-5 is a broad-based disc protrusion with severe central canal and lateral recess stenosis and flattening of the exiting right L4 nerve root. 2. L5-S1 there is a disc protrusion and moderate stenosis with flattening of the exiting L5 nerve roots bilaterally. 3. At L3-4 there is a moderate to severe central stenosis and lateral recess stenosis with mild foraminal stenosis. 4. No acute fracture or spondylolisthesis. Trace Holloway MD Lower Extremity Ultrasound 01/23/17 Signed Impressions: Service Date/Time: Monday, January 23, 2017 09:53 - CONCLUSION: Bilateral focal lower extremity DVT involving the posterior tibial veins. Angelo Garrido MD Cervical Spine MRI 01/23/17 Signed Impressions: Service Date/Time: Monday, January 23, 2017 17:01 - CONCLUSION: 1. Multilevel cervical spine degenerative changes as above. 2. Mild degrees of spinal stenosis at C3/C4-C6/C7. No cord compression or cord signal abnormality. 3. Age indeterminate left paracentral/foraminal disc protrusion at C6/C7. 4. Multilevel foraminal stenosis, most severe on the left at C6/C7. Please see individual levels above. 5. No fracture or subluxation of the cervical spine. Angelo Garrido MD Brain MRI 01/23/17 Signed Impressions: Service Date/Time: Monday, January 23, 2017 17:01 - CONCLUSION: 1. No acute stroke or other acute intracranial abnormality demonstrated. 2. Moderate severity chronic white matter changes, nonspecific but most likely related to chronic small vessel disease. 3. Few scattered tiny lacunar infarcts of the brainstem. 4. Given the findings are not entirely specific, clinical evaluation for possible multiple sclerosis recommended. Angelo Garrido MD Knee X-Ray 01/22/[id number] Signed Impressions: Service Date/Time: Sunday, January 22, 2017 21:17 - CONCLUSION: 1. Evidence of moderate to large joint effusion. 2. No acute fracture or malalignment. 3. Mild 3 compartment osteoarthritic change. Benjamin Person MD Hip and Pelvis X-Ray [id number]/22/172053 Signed Impressions: Service Date/Time: Sunday, January 22, 2017 21:10 - CONCLUSION: 1. Mild to moderate degenerative change of both hips with no acute fracture or malalignment. There is flattening and remodeling of the right humeral head. Benjamin Person MD Objective Remarks GENERAL: This is a well-nourished, well-developed patient, in no apparent distress. SKIN: Warm and dry. HEENT: Normocephalic. Pupils equal round and reactive. Nose without bleeding. Airway patent. NECK: Tracheostomy site capped. Optifoam under tracheostomy site wagner, skin sloughing possibly pressure related as patient has short neck. CARDIOVASCULAR: Regular rate and rhythm without murmurs, gallops, or rubs. RESPIRATORY: Diminished bases. No wheezes, rales, or rhonchi. 2L nc. O2 sat 100 % GASTROINTESTINAL: Abdomen soft, non-tender, nondistended. Bowel Sounds active x4. Fecal incontinence bag in place draining brown stool. MUSCULOSKELETAL: Extremities without clubbing, cyanosis. BUE trace edema. Notable tophi on small joints fingers and toes. NEUROLOGICAL: Awake and alert. Oriented to person. No focal neuro deficit. Moves all extremities weakly. Normal speech, minimal verbalization. Procedures IVC filter placement 01/25/2017 LP 01/26/2017 Date of Insertion: Mar 03, 2017 Line: Central Venous Catheter Side: Right Location: Internal, Jugular A/P Problem List: (1) Transverse myelitis ICD Code: G37.3 - Acute transverse myelitis in demyelinating disease of central nervous system Status: Acute (2) Septic shock ICD Code: A41.9 - Sepsis, unspecified organism; R65.21 - Severe sepsis with septic shock Status: Resolved (3) HCAP (healthcare-associated pneumonia) ICD Code: J18.9 - Pneumonia, unspecified organism (4) Acute respiratory failure with hypoxia and hypercarbia ICD Code: J96.01 - Acute respiratory failure with hypoxia; J96.02 - Acute respiratory failure with hypercapnia Status: Resolved (5) Hyperlipidemia ICD Code: E78.5 - Hyperlipidemia, unspecified Status: Chronic (6) HTN (hypertension) ICD Code: I10 - Essential (primary) hypertension (7) DVT of lower extremity, bilateral ICD Code: I82.403 - Acute embolism and thrombosis of unspecified deep veins of lower extremity, bilateral (8) Diabetes mellitus with hyperglycemia ICD Code: E11.65 - Type 2 diabetes mellitus with hyperglycemia (9) Hypocalcemia ICD Code: E83.51 - Hypocalcemia (10) Hypernatremia ICD Code: E87.0 - Hyperosmolality and hypernatremia (11) Hypokalemia ICD Code: E87.6 - Hypokalemia (12) Acute metabolic encephalopathy ICD Code: G93.41 - Metabolic encephalopathy (13) Quadriparesis ICD Code: G82.50 - Quadriplegia, unspecified Status: Acute (14) BREEZY (acute kidney injury) ICD Code: N17.9 - Acute kidney failure, unspecified (15) Diarrhea ICD Code: R19.7 - Diarrhea, unspecified (16) Abdominal pain ICD Code: R10.9 - Unspecified abdominal pain (17) Hypoglycemia ICD Code: E16.2 - Hypoglycemia, unspecified (18) Urinary retention ICD Code: R33.9 - Retention of urine, unspecified (19) Acute hypoxemic respiratory failure ICD Code: J96.01 - Acute respiratory failure with hypoxia (20) Sepsis ICD Code: A41.9 - Sepsis, unspecified organism Assessment and Plan Patient is a 62-year-old male with primary medical history of HTN, gout who came into the hospital for bilateral knee pain after a mechanical fall. Patient was found to have oblique fracture through distal right ulna. He was seen by orthopedic MD and recommended non operative treatment. Patient has been experiencing gradual lower extremity weakness and upper extremity weakness. Suspected Transverse Myelitis Acute metabolic encephalopathy - persistent - Recurrent falls and Quadriparesis secondary to suspected transverse myelitis - MRI revealed no acute stroke. He had multifocal white matter changes. Tiny lacunar infarcts of the brainstem. - Lumbar MRI report states L4-L5 disc protrusion with central canal stenosis - Patient was treated in critical care unit and received methylprednisolone 250 mg IV every 6 hours 01/27-02/02, started back on hydrocortisone 02/21/17, initially tapering to 50 mg IV every 8 hours starting 02/26 received 1 dose at 2100 prior to becoming hypotensive. Weaning hydrocortisone taper and stopped . Resumed hydrocortisone 50mg IV Q6hrly on 03/14 as patient became hypotensive following intubation on 03/13 requiring levophed. - LP 01/26 and 02/01. CSF culture negative 01/26, 02/01 Oligoclonal bands negative. CSF/serum IgG index is not elevated. VDRL nonreactive. Cryptococcal antigen negative. - Brain MRI cervical/thoracic spine with mild spinal stenosis C3/C4 to C6/ C7. No cord compression. RPR negative. - Neurology has been following, Dr. Crenshaw. Repeat CT brain 02/10 - negative. - Neurosurgery has been following, Dr. Blackwell, no cord compression recommends non operative treatment - Continue PT/OT. - Continue pain control with a bowel regimen. Acute hypoxemic respiratory failure Healthcare associated pneumonia/Aspiration Pneumonia S/P Tracheostomy placement - He was treated in critical care with Right-sided chest tube placed for pleural effusion. Orally intubated. Extubated 02/23. Reintubated 02/28. Extubated 03/11. Reintubated on 03/13. Right-sided chest tube placement 02/28 base brander, removed 03/05. Failed attempt to wean successfully due to volume overload and multiple organ failure. Underwent perc tracheostomy 03/14. - He was in severe sepsis that has resolved. - VQ scan 02/[address] PE. CT chest 02/10 - left lower lobe collapse and consolidation. - CT chest 02/27 revealed right greater than left pleural effusions. - Pulmonology following for [facility] care, downsized trach. Patient Capped. Tolerating. - Albuterol/ipratropium aerosols every 4 hours with albuterol aerosols every 2 hours PRN. - Possible decannulation. Systolic heart failure likely chronic with ejection fraction 20-25% Hyperlipidemia History of hypertension Elevated troponin likely type II demand ischemia, tachycardia - In critical care unit he was on pressors. Levophed on 03/09 following intubation, titrated off after starting hydrocortisone. Started hydrocortisone stress dose on 03/14 (as patient has been on steroids and was just tapered off on 03/09.) Patient had been hypotensive twice when attempting to wean off stress dose hydrocortisone in the past. EKG with nonspecific ST-T changes. 2-D echocardiogram 01/11 revealed EF 20-25%. Mild TR. Pulmonary arterial pressures were normal around 20. Troponin 6.55 on 03/02. - Likely will need stress test of heart once stable. Cannot anticoagulate due to retroperitoneal hematoma at the present time. - Currently on atenolol 25 mg twice a day. Continue amlodipine 10 mg daily. - Atorvastatin 10 mg by mouth daily for dyslipidemia. - Lasix 40mg IV Q12hrs. - Monitor BP Trend Large right retroperitoneal hematoma Erosive esophagitis Adenomatous/hyperplastic colon polyps Severe acute protein calorie malnutrition Gastritis, Diverticulosis, Hiatal hernia Internal and external hemorrhoids Diarrhea Elevated lipase - 02/27 CT chest/abdomen and pelvis - 9.4 x 7.5 renal and 16 x 12 cm right psoas muscle hematoma. Fluid around liver and spleen. Right-sided nephrolithiasis. - CTA abdomen 02/28 - possible blushing around iliac/lumbar vessels. Discussed with IR. s/p attempted embolization. - CT abdomen and pelvis 02/10 atrophic left kidney. Bilateral inguinal hernias fat-containing. Nonobstructing 12 mm right kidney stone. Repeat CT abd/ pelvis did not show evidence of obstruction. - EGD/Colonoscopy-02/22/17 showed gastritis esophagitis, hiatal hernia, diverticulosis and multiple polyps in descending colon and sigmoid which were snared biopsied. Biopsy pending. Dr. Lewis consulted for intervention if needed for elevated IAP. - PEG tube placement by . - Lansoprazole 30 mg twice a day for GI prophylaxis. - Tube feeding Nephro goal 55 - Fecal rectal collection for diarrhea. Lactinex TID. May benefit with Questran - Negative Cdiff. Loperamide? Acute kidney injury in the setting of Chronic kidney disease stage 3-4 History of uric acid kidney stones with prior stent BPH Nonfunctioning left kidney - Sloan placed due to urinary retention and worsening creatinine. Maintain Sloan secondary to urinary retention - RIOS/SPEP negative. - Urology has followed for uric acid nephrolithiasis. Recommended nephrostomy tube if obstruction. Nephrology consulted, hemodialysis per nephrology. Making urine. Due to acute illness holding tamsulosin 0.4 mg by mouth daily for BPH. - Decreased urine output, creatinine increased 04/02 to 1.67. Per nephrology , patient is on Albumin and Lasix IV. Recommends to continue with diureses Septic shock- resolved. Abscess and Suppurative thrombophlebitis left upper extremity MSSA bacteremia Klebsiella UTI ESBL positive Acute aspiration pneumonia/HCAP - Previously treated with Bactrim, ertapenem, intermittent vancomycin, nafcillin. Blood cultures 2, UA ESBL positive Klebsiella UTI. - Repeat blood cultures 2 negative and sputum 03/08 Stenotrophomonas Maltophiloa, Klebsiella Pneumoniae - Sputum 03/14 - Pseudomonas came back resistant to imipenem. - Sputum Culture Repeat 04/01/17 - Pseudomonas Aeroginosa. - ID following. Recommends Tobramycin Nebs x7 days. Signed off to reconsult PRN. Acute blood loss anemia DVT, bilateral posterior tibial vein, IVC filter Septic thrombophlebitis with occlusive thrombus mid cephalic and basilic vein side - Patient has received total of 23 PRBC, 10 FFP, 3 platelets, 1 cryo-02/28. - Ultrasound 01/23/17 - Bilateral lower extremity with occlusive posterior tibial vein DVTs. Heparin was initially started for DVT but was placed on hold due to LP with suspected traumatic tap. IVC filter was placed 01/25/17. Ultrasound LUE 02/10 occlusive thrombus mid cephalic vein, basilic veins. - Trend CBC. Stable. Diabetes mellitus History of prior adrenal insufficiency with shock - EGD colonoscopy completed 02/22. Gastritis and esophagitis, colon polyps. Started Hydrocortisone 100 mg every 8 hours 02/21/17 (Recent high dose steroids use now hypotensive, hypoglycemic), steroids had been tapered off. Resumed stress dose steroids on 03/16 as patient back on Levophed for pressor support after intubation. - Hydrocortisone 12.5mg BID - Levemir 10 units BID. Prandial insulin Aspart 5units TIDAC - Continue sliding scale insulin.. Right distal ulna fracture. - Dr. Nathan with orthopedics has evaluated and recommended nonoperative management. - Right wrist splint in place. Pressure wound tracheostomy wagner site. - Patient was seen with OptiFoam under tracheostomy wagner. Patient has some erosion of skin, and sloughing at the edge of the tracheostomy wagner, OptiFoam serves as a barrier for cushion to avoid further damage of the skin. Site was cleansed with normal saline and OptiFoam was placed. - Change optifoam daily. Gout, possible flare up - Left hand, index finger erythema noted, patient also grimaces and pulls away when left arm is touched or held. - Colchicine 1.2mg x 1 dose now, then 0.6 mg after 1 hour then, 0.6 mg daily x 7 days Full code. Has IVC filter. Pharmacological prophylaxis is on hold due to retroperitoneal hematoma. Discharge Planning Plan is to wean off trach, increase physical activity and DC home with [facility]. Problem Qualifiers (1) Hyperlipidemia: Qualified Codes: E78.5 - Hyperlipidemia, unspecified (2) HTN (hypertension): Qualified Codes: I10 - Essential (primary) hypertension (3) Diabetes mellitus with hyperglycemia: Qualified Codes: E11.65 - Type 2 diabetes mellitus with hyperglycemia (4) Diarrhea: Qualified Codes: A09 - Infectious gastroenteritis and colitis, unspecified (5) Abdominal pain: Qualified Codes: R10.84 - Generalized abdominal pain (6) Sepsis: Qualified Codes: A41.9 - Sepsis, unspecified organism Stacie Branch [facility] Apr 05, 2017 08:51
[2017-04-05] MEDS: POTASSIUM CHLORIDE 25 MEQ EFFERVESCENT TAB PO SCH ×2 (09:24→21:35)
[2017-04-05] MEDS: LANSOPRAZOLE SOLUTAB 30 MG TAB NG SCH ×2 (09:24→21:35)
[2017-04-05] MEDS: LACTOBACILLUS ACIDOPHILUS TAB PO SCH ×3 (09:24→17:50)
[2017-04-05] MEDS: TAMSULOSIN HCL 0.4 MG CAP PO SCH ×2 (09:24→21:36)
[2017-04-05] MEDS: ATENOLOL 25 MG TAB PO SCH ×2 (09:24→21:35)
[2017-04-05] MEDS: HYDROCORTISONE SOD SUCCINATE 100 MG VIAL IV PUSH SCH ×2 (09:24→21:35)
[2017-04-05] MEDS: FUROSEMIDE 40 MG/4 ML VIAL IV PUSH SCH (09:25)
[2017-04-05] MEDS: INSULIN ASPART 1,000 UNITS/10 ML VIAL SQ SCH ×3 (09:25→17:50)
[2017-04-05] MEDS: INSULIN ASPART SUPPLEMENTAL SCALE SQ SCH ×4 (09:30→21:00)
[2017-04-05] MEDS: INSULIN DETEMIR 100 UNITS/ML VIAL SQ SCH ×2 (09:34→21:00)
[2017-04-05 11:49] LABS: BLOOD GAS BASE EXCESS 4.6 mmol/L (-2-2); BLOOD GAS CARBOXYHEMOGLOBIN 2.5 % (0-4); BLOOD GAS HCO3 29 mmol/L (22-26); BLOOD GAS METHEMOGLOBIN 0.9 % (0-2); BLOOD GAS O2 HGB SATURATION 91 % (90-100); BLOOD GAS OXYGEN CONTENT 16.2 Vol % (12.0-20.0); BLOOD GAS PCO2 45 mmHg (38-42); BLOOD GAS PO2 68 mmHg (61-120); BLOOD GAS TOTAL HGB 12.7 G/DL (12.0-16.0); TEMP CORR TO 98.6
[2017-04-05 11:50] LABS: CRITICAL VALUE NO; DRAW SITE RT RADIAL; FIO2 40 %; LITER FLOW 6 L/M; NUMBER OF ARTERIAL PUNCTURES 1; OXYGEN DEVICE MASK; STAT NO; ULNAR PULSE PRESENT
--- NOTE | 2017-04-05 11:52 | HHI.PR ---
Addendum to Inpatient Note Addendum Reason: Additional Documentation Additional Information Notified by Palliative RN patient is more lethargic and does not responds to questions and commands. O2 sat at the bedside 98%, HR 102. Patient is capped. Uncapped and suctioned moderate amount, moderately thick blood tinged secretions. Respiratory called and set up for t-collar done. ABG ordered. Monitor respiratory status. Follow up ABG results. Patient is being followed by pipe wrapping machine operator Dr. Hoyos, will f/u for recommendations. Last CXR 04/01 with left pleural effusion, on IV lasix. Dr. Chairez is aware. Stacie Branch Apr 05, 2017 11:52
[2017-04-05] MEDS: CHLORHEXIDINE 0.12% (ORAL KIT) 15 ML CUP MT SCH ×2 (12:34→20:00)
--- NOTE | 2017-04-05 14:01 | HHI.NPPN ---
Subjective History of Present Illness 61-year-old with history of urinary stone Additional Remarks Patient had trach on trach o2, not in distress. Review of Systems General Constitutional: Fatigue Objective Data Data 04/05/17 04/06/17 19:00 07:00 Intake Total 1532 ml Balance 1532 ml Tube Feeding 1132 ml Other 400 ml Vital Signs Date Time Temp Pulse Resp B/P (MAP) Pulse Ox O2 Delivery O2 Flow Rate FiO2 04/05/17 12:55 96 T-Piece 5.00 04/05/17 12:21 97.5 87 18 133/70 (91) 96 04/05/17 08:02 96 Nasal Cannula 2.00 04/05/17 06:02 99.5 112 20 137/69 (91) 97 04/05/17 01:34 99.0 102 18 136/64 (88) 95 04/05/17 00:13 96 Nasal Cannula 2.00 04/04/17 22:03 98.7 101 20 184/84 (117) 98 04/04/17 21:10 100 Nasal Cannula 2.00 04/04/17 19:00 Nasal Cannula 3.00 30 04/04/17 16:00 98.9 105 16 162/74 (103) 97 04/04/17 15:20 96 Nasal Cannula 3.00 -: 04/05/17 0802 04/05/17 0802 Physical Exam General Appearance: Pale Eyes Eye Exam: Pupils Equal Throat Throat Exam: Oral Mucosa [place] & Moist Neck Neck Exam: Neck Supple Pulmonary Resp Exam: Clear Bilaterally Cardiology CV Exam: Normal Sinus Rhythm Gastrointestinal/Abdomen GI Exam: Non-Tender, Distended Extremeties Extremities Exam: Moderate Edema, Pitting Edema Neurologic Neuro Exam: Awake Assessment/Plan Problem List: (1) Acute renal failure ICD Codes: N17.9 - Acute kidney failure, unspecified Status: Acute Plan: Patient developed Hypotension,sepsis staph aureus respiratory failure and increase WBC. 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 infection playing a role has colonize airway Pseudomonas growing UOP improved with Lasix Cr higher decrease albumin/Lasix 40 mg daily Rx underlying infection? (2) CKD (chronic kidney disease) stage 3, GFR 30-59 ml/min ICD Codes: N18.3 - Chronic kidney disease, stage 3 (moderate) Status: Chronic Plan: Ultrasound revealed chronic kidney disease there is no kidney stones (3) Diabetes ICD Codes: E11.9 - Type 2 diabetes mellitus without complications Plan: Continue to monitor (4) Distal end of ulna fracture, closed ICD Codes: S52.609A - Unspecified fracture of lower end of unspecified ulna, initial encounter for closed fracture Status: Acute Plan: Orthopedic is following Problem Qualifiers (1) Acute renal failure: Qualified Codes: N17.9 - Acute kidney failure, unspecified Laura Liao MD Apr 05, 2017 14:01
--- NOTE | 2017-04-05 14:22 | HHI.HCPN ---
Reason for visit a. To assist with evaluation and management of symptoms including: shortness of breath, pain, debility b. To assist medical decision maker(s) with: better understanding of current medical conditions; weighing benefits/burdens of medical treatment options; making medical treatment decisions. Subjective/Interval History Patient seen in his room in bed around 1040hrs , lethargic, oriented to self and not responding to other questions. Patient is not as conversant as he was yesterday. Briefly arouse to noxious stimulation. Patient answering questions by nodding head for "yes" or shaking head for "no" and closing his eyes. Patent` s work of breathing increased. Currently has a Passy [place] valve on and on O2 3L NC. O2 saturation high 90s. Patient`s HR low 100s. Laboratory workup revealing WBC 11.4, Hgb 8.4, Hct 25.3, Plt count 167, sodium 135, potassium 3.5, BUN/Creatinine 89/1.87, random glucose 163, calcium 8.2. No recent imaging. Case discussed with bedside RN Jose Carlos Santacruz Iszenn ARNP and respiratory therapist. . Family/friend interactions No family at bedside. . Advance Directives Living Will: Never completed Health Care Surrogate: Never completed Durable Power of Director Mortgage: Never completed Advance Directive Specifics Documented care wishes: No known documented care wishes have been completed. . Objective Vital Signs Date Time Temp Pulse Resp B/P (MAP) Pulse Ox O2 Delivery O2 Flow Rate FiO2 04/05/17 12:55 96 T-Piece 5.00 04/05/17 12:21 97.5 87 18 133/70 (91) 96 04/05/17 08:02 96 Nasal Cannula 2.00 04/05/17 06:02 99.5 112 20 137/69 (91) 97 04/05/17 01:34 99.0 102 18 136/64 (88) 95 04/05/17 00:13 96 Nasal Cannula 2.00 04/04/17 22:03 98.7 101 20 184/84 (117) 98 04/04/17 21:10 100 Nasal Cannula 2.00 04/04/17 19:00 Nasal Cannula 3.00 30 04/04/17 16:00 98.9 105 16 162/74 (103) 97 04/04/17 15:20 96 Nasal Cannula 3.00 Intake & Output 04/05/17 04/05/17 07:00 19:00 Intake Total 1532 ml Output Total 600 ml Balance -600 ml 1532 ml Tube Feeding 1132 ml Other 400 ml Output Urine Total 600 ml Physical Exam CONSTITUTIONAL/GENERAL: This is an ill-looking patient, lethargic male in mild respiratory distress TUBES/LINES/DRAINS: PEG tube, #6Tracheostomy- capped , PIVs, FC SKIN: No jaundice. Ecchymoses on upper extremities. Sacral pressure wound and L heel pressure injury. Wound to anterior neck - tracheostomy insertion area with a foam dressing. Low grade Temp. Not diaphoretic. HEAD: Atraumatic. Normocephalic. EYES: Pupils equal and round, slight reaction.No scleral icterus. No injection or drainage. Fundi not examined. ENT: Trached. Nose without bleeding or purulent drainage. Moist oral mucosa. NECK: Trachea midline. #6 Tracheostomy midline- capped. Wound to anterior neck - tracheostomy insertion area with a foam dressing. CARDIOVASCULAR: Regular rate and rhythm without murmurs, gallops, or rubs. No JVD. RESPIRATORY/CHEST: Increased work of breathing. Rhonchi to auscultation. Breath sounds equal bilaterally. Tracheostomy capped on 3L NC and O2 Sats in the high 90s. GASTROINTESTINAL: Abdomen soft, non-tender, nondistended. No guarding. Bowel sounds present. Nepro-Goal infusing at 55ml/hr GENITOURINARY: Without palpable bladder distension. Sloan catheter in with clear urine. Scrotal edema. MUSCULOSKELETAL: Gout tophi to fingers, knees, elbows and both ankles. Trace edema to all 4 extremities. NEUROLOGICAL: Trached. Patient is lethargic today and not conversant . PSYCHIATRIC: No obvious anxiety/depression. no apparent hallucinations or other psychotic thought process. . Diagnostic Tests Laboratory Laboratory Tests Test 04/03/17 06:45 04/04/17 08:49 04/05/17 08:02 04/05/17 11:44 White Blood Count 17.1 TH/MM3 (4.0-11.0) 11.4 TH/MM3 (4.0-11.0) Red Blood Count 3.18 MIL/MM3 (4.50-5.90) 2.90 MIL/MM3 (4.50-5.90) Hemoglobin 9.0 GM/DL (13.0-17.0) 8.4 GM/DL (13.0-17.0) Hematocrit 27.9 % (39.0-51.0) 25.3 % (39.0-51.0) Mean Corpuscular Volume 87.9 FL (80.0-100.0) 87.2 FL (80.0-100.0) Mean Corpuscular Hemoglobin 28.5 PG (27.0-34.0) 29.1 PG (27.0-34.0) Mean Corpuscular Hemoglobin Concent 32.4 % (32.0-36.0) 33.4 % (32.0-36.0) Red Cell Distribution Width 16.0 % (11.6-17.2) 15.8 % (11.6-17.2) Platelet Count 132 TH/MM3 (150-450) 167 TH/MM3 (150-450) Mean Platelet Volume 10.1 FL (7.0-11.0) 9.0 FL (7.0-11.0) Blood Urea Nitrogen 76 MG/DL (7-18) 85 MG/DL (7-18) 89 MG/DL (7-18) Creatinine 1.67 MG/DL (0.60-1.30) 1.87 MG/DL (0.60-1.30) 1.87 MG/DL (0.60-1.30) Random Glucose 257 MG/DL (74-106) 168 MG/DL (74-106) 163 MG/DL (74-106) Calcium Level 8.1 MG/DL (8.5-10.1) 8.5 MG/DL (8.5-10.1) 8.2 MG/DL (8.5-10.1) Magnesium Level 1.9 MG/DL (1.5-2.5) Sodium Level 136 MEQ/L (136-145) 135 MEQ/L (136-145) 135 MEQ/L (136-145) Potassium Level 3.8 MEQ/L (3.5-5.1) 3.3 MEQ/L (3.5-5.1) 3.5 MEQ/L (3.5-5.1) Chloride Level 100 MEQ/L (98-107) 98 MEQ/L (98-107) 98 MEQ/L (98-107) Carbon Dioxide Level 28.7 MEQ/L (21.0-32.0) 26.5 MEQ/L (21.0-32.0) 27.6 MEQ/L (21.0-32.0) Anion Gap 7 MEQ/L (5-15) 11 MEQ/L (5-15) 9 MEQ/L (5-15) Estimat Glomerular Filtration Rate 42 ML/MIN (>89) 37 ML/MIN (>89) 37 ML/MIN (>89) Blood Gas Puncture Site RT RADIAL Blood Gas Patient Temperature 98.6 Blood Gas HCO3 29 mmol/L (22-26) Blood Gas Base Excess 4.6 mmol/L (-2-2) Blood Gas Oxygen Saturation 91 % (90-100) Arterial Blood pH 7.42 (7.380-7.420) Arterial Blood Partial Pressure CO2 45 mmHg (38-42) Arterial Blood Partial Pressure O2 68 mmHg (61-120) Arterial Blood Oxygen Content 16.2 Vol % (12.0-20.0) Arterial Blood Carboxyhemoglobin 2.5 % (0-4) Arterial Blood Methemoglobin 0.9 % (0-2) Blood Gas Hemoglobin 12.7 G/DL (12.0-16.0) Oxygen Delivery Device MASK Blood Gas Liter Flow 6 L/M Blood Gas Inspired Oxygen 40 % Result Diagram: 04/05/1780104/05/17 0802 Procedures 01/25/2017- Retrievable IVC Filter placement 01/26/17-lumbar puncture with fluoroscopy-by interventional radiology 02/01/17- lumbar puncture fluoroscopy by interventional radiology 02/10/17- Endotracheal Intubation 02/10/17-left IJ central venous line placed 02/10/17-left femoral arterial line placed 02/11/17-Diagnostic and therapeutic bronchoscopy with bronchoalveolar lavage 02/11/17-Left upper extremity incision and debridement with excision of septic cephalic vein 02/13/17- Extubated 02/20/17- endotracheal intubation 02/20/17- Left subclavian central line placement 02/20/17-Right radial A-line placement 02/22/17-EGD/colonoscopy 02/28/17-right radial a line 02/28/17- Endotracheal intubation 02/28/17- right sided introducer catheter placement 02/28/17- Right IJ central line placement 02/28/17-Right chest tube placement 02/28/17- Embolization of inferior and superior sacral branches of right internal iliac artery 03/01/17- Hemodialysis access catheter 03/03/17-Right IJ central line placement 03/11/17-Extubated 03/13/17- Endotracheal intubation 03/14/17-Tracheostomy placement 03/15/17-PEG tube placement . Assessment and Plan Disease Oriented Problem List: (1) Acute respiratory failure (2) Septic shock (3) Aspiration pneumonia (4) Acute renal failure (5) CKD (chronic kidney disease) stage 3, GFR 30-59 ml/min (6) Cardiomyopathy (7) DVT of lower extremity, bilateral (8) Thrombophlebitis arm (9) Diabetes mellitus (10) Gout (11) HTN (hypertension) (12) Hyperlipidemia Symptom Scale: (1) Shortness of breath 0-10 Scale: Unable to quantify Comment: Trach downsized to #6. Currently capped on 3L NC . (2) Debility 0-10 Scale: Unable to quantify Comment: Progressive. . (3) Pain 0-10 Scale: Unable to quantify Comment: History of falls, gout, arthritis, and currently bedbound. . Pertinent Non-Medical Issues Psychosocial:Patient was born and raised in [place], [place]. Patient was once for 20 years, now and has 2 adult sons. 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 He recently resigned due to failing health. Spiritual: No mandaeism affiliation Legal: Per [place] statutes, in the absence of written advanced directives healthcare proxy decision making falls to the patient's 2 adult children. Patient's son (Davie) lives locally and wishes to participate in the role of the healthcare proxy decision maker. Palliative care has attempted to contact Arnel, has not call back. Patient`s sister Deb and patients brother verbalized that they have been updating Arnel on patient`s medical status. Ethical issues impacting care: No known ethical issues impacting care at this time. . Important Contacts Son-Davie Kerr - Son-Arnel Kerr- -cell -home Sister-Deb Curry . Prognosis Mr Kerr is a 62 years old male with a past medical history of hypertension, asthma, diabetes, hyperlipidemia, chronic kidney disease and gout. Patient presented to the ED on 01/22/17 complaining of bilateral knee and right arm pain after a mechanical fall 4 or 5 days prior to coming to the ER. Clinical course complicated with increased weakness leading to numerous diagnostic work ups for possible transverse myelitis, DVTs, retroperitoneal hematoma, aspiration pneumonia, intubation x 4 times, septic and hemorrhagic shock requiring support with pressors and multiple pRBC, FFP transfusions as well as platelets and cryo , renal failure requiring hemodialysis and sacral wound Given ongoing comorbidities, and prolonged hospitalization, patient remains at risk for further complications, deterioration and decline. Code Status: Full Code Plan PLAN: Legal decision maker: Patient is currently trached on TPierce and is not able to make any medical decisions for himself at this time. Patient has 2 adult sons Davie Kerr and Arnel Kerr. According to [place] Statute, his two aforementioned sons will serve as his health care proxys. Patient`s son Davie is acting in the role of HCP decision maker independently at this time given that he is the one who is reasonably available for consultation. Goals: 04/05/17- Remain Aggressive. Patient lethargic today. Increased work of breathing. CODE STATUS: Full Code SYMPTOMS: * Shortness of breath: Multifactorial. Patient has had aspiration pneumonia. Patient has been intubated 4 times this hospitalization. Patient has a tracheostomy. On duonebs. Patient is also on Hydrocortisone 50mg q 6 hours. Bottom Presser following. Trach downsized to a 6. Patient has a Passy [place] valve and is on 3L NC. Patient has increased work of breathing and is lethargic today. Patient received Alprazolam 0.125 mg at 0631hrs 04/05/17. O2 Sats high 90s. Patient has a low grade Temp today. Wound care following on wound to tracheostomy insertion area. Recommending ABGs. * Pain: Patient presented initially complaining of pain to right wrist and bilateral knees after a mechanical fall. Patient has a history of gout, arthritis, multiple falls and is currently bedbound. Patient`s pain medication dose decreased from Oxycodone 10mg to Oxycodone 5mg q 4 hours ATC. Patient also on Hydrocortisone. Denies pain today. * Debility: Progressive. Patient has had decline in his health for the past 4 months, including progressively increased weakness and difficulty ambulating and prolonged hospitalization with multiple setbacks. Patient remains at high risk for further physical deconditioning and debility. PT and OT following with patient. PT and OT following. Patient will benefit from getting OOB to a stretcher chair . PT and OT following. Recommending Speech therapy consultation. Palliative care will continue to follow the patient during hospital course as condition evolves, to assist patient/decision-maker with understanding of their medical conditions, weighing benefits/burdens of treatment options, for clarification of goals of treatment. Additionally will assist with any symptoms of palliative concern. . Aftab Cartwright [facility] Apr 05, 2017 14:22
[2017-04-05] MEDS ORDERED: COLCHICINE 0.6 MG TAB PO ONE (14:45)
[2017-04-05] MEDS: COLCHICINE 0.6 MG TAB PO SCH (17:50)
[2017-04-05] MEDS: ATORVASTATIN 10 MG TAB PO SCH (21:36)
[2017-04-06] VITALS (9 sets, daily range): BP systolic 129–138; BP diastolic 60–69; PULSE 79–103; RESP 18–21; TEMP 98.1–98.8; O2SAT 95–100
[2017-04-06] MEDS: oxyCODONE HCL ORAL CONC 5 MG/0.25 ML SYRINGE PO SCH ×6 (01:09→22:12)
[2017-04-06] MEDS: FREE WATER G-TUBE SCH ×6 (04:00→20:00)
[2017-04-06] MEDS: CHLORHEXIDINE 0.12% (ORAL KIT) 15 ML CUP MT SCH ×2 (08:00→20:00)
[2017-04-06] MEDS: INSULIN ASPART 1,000 UNITS/10 ML VIAL SQ SCH ×3 (08:00→17:00)
[2017-04-06] MEDS: INSULIN ASPART SUPPLEMENTAL SCALE SQ SCH ×4 (08:00→22:23)
[2017-04-06 08:41] LABS: BICARBONATE 29.7 MEQ/L (21.0-32.0); POTASSIUM 3.7 MEQ/L (3.5-5.1)
--- NOTE | 2017-04-06 08:55 | HHI.PR ---
Subjective Remarks Follow-up visit metabolic encephalopathy, transverse myelitis, acute respiratory failure status post tracheostomy. Patient seen and examined today. Laying in bed. Awake and alert. Nonverbal. Tracheostomy with t-collar to O2. Secretions moderate amount greenish yellow, moderately thick. No acute issues overnight. Remains uncapped. Objective Vitals Vital Signs Date Time Temp Pulse Resp B/P (MAP) Pulse Ox O2 Delivery O2 Flow Rate FiO2 04/06/17 06:18 98.1 88 18 129/60 (83) 98 04/06/17 01:29 98.1 103 20 136/62 (86) 95 04/05/17 21:18 98.8 95 18 130/61 (84) 96 04/05/17 19:53 97 Trach Collar 35 04/05/17 19:00 T-Piece 5.00 30 04/05/17 17:12 100.0 89 18 124/60 (81) 98 04/05/17 14:46 104 04/05/17 12:55 96 T-Piece 5.00 04/05/17 12:21 97.5 87 18 133/70 (91) 96 I/O 04/05/17 04/05/17 04/05/17 04/06/17 04/06/17 04/06/17 07:00 15:00 23:00 07:00 15:00 23:00 Intake Total 1532 ml 400 ml 856 ml Output Total 600 ml 950 ml 800 ml Balance -600 ml 1532 ml -550 ml 56 ml Tube Feeding 1132 ml 856 ml Other 400 ml 400 ml Output Urine Total 600 ml 950 ml 800 ml Result Diagram: 04/05/17 0802 04/06/17 0722 Imaging Last Impressions Renal Ultrasound 04/02/17 0000 Signed Impressions: Service Date/Time: Sunday, April 02, 2017 16:59 - CONCLUSION: Limited exam with the left kidney being unable to be evaluated in the bladder not distended. There do appear to be multiple shadowing stones at the right kidney without hydronephrosis. Angelo Manzo MD Chest X-Ray 04/01/17 0000 Signed Impressions: Service Date/Time: Saturday, April 01, 2017 23:42 - CONCLUSION: Moderate-sized left pleural effusion. Tracheostomy tube in good position. Lungs are grossly clear. Duy Genao MD Wrist X-Ray 03/27/17 0000 Signed Impressions: Service Date/Time: Monday, March 27, 2017 13:21 - CONCLUSION: 1. No acute fracture is identified. A portion of the previously documented distal ulna fracture remains visualized. 2. 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 Angelo Allen MD Aortography 02/28/17 0000 Signed Impressions: Service Date/Time: Tuesday, February 28, 2017 08:01 - CONCLUSION: 1. Active hemorrhage from distal right lateral sacral and iliolumbar branches successfully coil and Gelfoam embolized, as above. Juan Bhakta MD Abdomen/Pelvis CT 02/28/17 0000 Signed Impressions: Service Date/Time: Tuesday, February 28, 2017 06:51 - CONCLUSION: 1. The right retroperitoneal hematoma has increased in size, as above. There are 2 serpiginous arterially enhancing structures visualized, one in the right psoas muscle and another extending into the hematoma at the right iliac fossa. These could represent sites of continued active bleeding. 2. Stable moderate size left and small right pleural effusion with associated compressive atelectasis. 3. Stable small volume of free fluid in the abdomen and pelvis. There is also anasarca. The findings concerning the retroperitoneal hematoma were discussed with Dr. Aguiar via telephone at approximately 7: 10 AM on 02/28/2017. Angelo Allen MD Chest CT 02/27/17 0000 Signed Impressions: Service Date/Time: Monday, February 27, 2017 18:12 - CONCLUSION: 1. Bilateral pleural effusions with bibasilar atelectasis, left greater than right. Tom Sanchez MD Abdomen X-Ray 02/26/17 0000 Signed Impressions: Service Date/Time: Sunday, February 26, 2017 14:52 - CONCLUSION: 1. Nonobstructive bowel gas pattern. Juan Bhakta MD Upper Extremity Ultrasound 02/10/17 0000 Signed Impressions: Service Date/Time: Friday, February 10, 2017 18:46 - CONCLUSION: Occlusive thrombus in the cephalic and basilic veins. Benjamin Person MD Lung Scan- Nuclear Medicine 02/10/17 0000 Signed Impressions: Service Date/Time: Friday, February 10, 2017 22:17 - CONCLUSION: Low probability pulmonary embolism. Candido Patton MD Head CT 02/10/17 Signed Impressions: Service Date/Time: Friday, February 10, 2017 23:51 - CONCLUSION: Negative noncontrast CT brain. Candido Patton MD Lumbar Puncture Fluoroscopy 02/01/17 Signed Impressions: Service Date/Time: January 09:35 - CONCLUSION: Uncomplicated fluoroscopically guided lumbar puncture. CSF was clear. Nabeel Peralta MD Head Magnetic Resonance Angiography 01/27/17 Signed Impressions: Service Date/Time: Friday, January 27, 2017 10:33 - CONCLUSION: No intracranial vascular abnormality is identified. There is no aneurysm visualized. Angelo Allen MD IVC Filter Placement X-Ray 01/25/17 Signed Impressions: Service Date/Time: January 10:29 - CONCLUSION: Uncomplicated inferior vena cava filter placement as above. Yung Fowler MD Thoracic Spine MRI 01/24/17 Signed Impressions: Service Date/Time: Tuesday, January 24, 2017 22:29 - CONCLUSION: 1. Mild degenerative spondylosis most prominently at T11-L1 with slight effacement of the anterior thecal sac and left lateral recess. No significant neural foraminal stenosis. 2. No acute fracture. Juan Bhakta MD Lumbar Spine MRI 01/23/17 Signed Impressions: Service Date/Time: Monday, January 23, 2017 17:01 - CONCLUSION: 1. At L4-5 is a broad-based disc protrusion with severe central canal and lateral recess stenosis and flattening of the exiting right L4 nerve root. 2. L5-S1 there is a disc protrusion and moderate stenosis with flattening of the exiting L5 nerve roots bilaterally. 3. At L3-4 there is a moderate to severe central stenosis and lateral recess stenosis with mild foraminal stenosis. 4. No acute fracture or spondylolisthesis. Trace Holloway MD Lower Extremity Ultrasound 01/23/17 Signed Impressions: Service Date/Time: Monday, January 23, 2017 09:53 - CONCLUSION: Bilateral focal lower extremity DVT involving the posterior tibial veins. Angelo Garrido MD Cervical Spine MRI 9/5/17 0000 Signed Impressions: Service Date/Time: Monday, January 23, 2017 17:01 - CONCLUSION: 1. Multilevel cervical spine degenerative changes as above. 2. Mild degrees of spinal stenosis at C3/C4-C6/C7. No cord compression or cord signal abnormality. 3. Age indeterminate left paracentral/foraminal disc protrusion at C6/C7. 4. Multilevel foraminal stenosis, most severe on the left at C6/C7. Please see individual levels above. 5. No fracture or subluxation of the cervical spine. Angelo Garrido MD Brain MRI 01/23/17 0000 Signed Impressions: Service Date/Time: Monday, January 23, 2017 17:01 - CONCLUSION: 1. No acute stroke or other acute intracranial abnormality demonstrated. 2. Moderate severity chronic white matter changes, nonspecific but most likely related to chronic small vessel disease. 3. Few scattered tiny lacunar infarcts of the brainstem. 4. Given the findings are not entirely specific, clinical evaluation for possible multiple sclerosis recommended. Angelo Garrido MD Knee X-Ray 01/22/172053 Signed Impressions: Service Date/Time: Sunday, January 22, 2017 21:17 - CONCLUSION: 1. Evidence of moderate to large joint effusion. 2. No acute fracture or malalignment. 3. Mild 3 compartment osteoarthritic change. Benjamin Person MD Hip and Pelvis X-Ray 01/22/172053 Signed Impressions: Service Date/Time: Sunday, January 22, 2017 21:10 - CONCLUSION: 1. Mild to moderate degenerative change of both hips with no acute fracture or malalignment. There is flattening and remodeling of the right humeral head. Benjamin Person MD Objective Remarks GENERAL: This is a well-nourished, well-developed patient, in no apparent distress. SKIN: Warm and dry. HEENT: Normocephalic. Pupils equal round and reactive. Nose without bleeding. Airway patent. NECK: Tracheostomy site capped. Optifoam under tracheostomy site wagner, skin sloughing possibly pressure related as patient has short neck. CARDIOVASCULAR: Regular rate and rhythm without murmurs, gallops, or rubs. RESPIRATORY: Diminished bases. No wheezes, rales, or rhonchi. 2L nc. O2 sat 100 % GASTROINTESTINAL: Abdomen soft, non-tender, nondistended. Bowel Sounds active x4. Fecal incontinence bag in place draining brown stool. MUSCULOSKELETAL: Extremities without clubbing, cyanosis. BUE trace edema. Notable tophi on small joints fingers and toes. Left arm tenderness to palpate or move. NEUROLOGICAL: Awake and alert. Oriented to person. No focal neuro deficit. Moves all extremities weakly. Normal speech, minimal verbalization. Procedures IVC filter placement 01/25/2017 LP 01/26/2017 Date of Insertion: Mar 03, 2017 Line: Central Venous Catheter Side: Right Location: Internal, Jugular A/P Problem List: (1) Transverse myelitis ICD Code: G37.3 - Acute transverse myelitis in demyelinating disease of central nervous system Status: Acute (2) Septic shock ICD Code: A41.9 - Sepsis, unspecified organism; R65.21 - Severe sepsis with septic shock Status: Resolved (3) HCAP (healthcare-associated pneumonia) ICD Code: J18.9 - Pneumonia, unspecified organism (4) Acute respiratory failure with hypoxia and hypercarbia ICD Code: J96.01 - Acute respiratory failure with hypoxia; J96.02 - Acute respiratory failure with hypercapnia Status: Resolved (5) Hyperlipidemia ICD Code: E78.5 - Hyperlipidemia, unspecified Status: Chronic (6) HTN (hypertension) ICD Code: I10 - Essential (primary) hypertension (7) DVT of lower extremity, bilateral ICD Code: I82.403 - Acute embolism and thrombosis of unspecified deep veins of lower extremity, bilateral (8) Diabetes mellitus with hyperglycemia ICD Code: E11.65 - Type 2 diabetes mellitus with hyperglycemia (9) Hypocalcemia ICD Code: E83.51 - Hypocalcemia (10) Hypernatremia ICD Code: E87.0 - Hyperosmolality and hypernatremia (11) Hypokalemia ICD Code: E87.6 - Hypokalemia (12) Acute metabolic encephalopathy ICD Code: G93.41 - Metabolic encephalopathy (13) Quadriparesis ICD Code: G82.50 - Quadriplegia, unspecified Status: Acute (14) BREEZY (acute kidney injury) ICD Code: N17.9 - Acute kidney failure, unspecified (15) Diarrhea ICD Code: R19.7 - Diarrhea, unspecified (16) Abdominal pain ICD Code: R10.9 - Unspecified abdominal pain (17) Hypoglycemia ICD Code: E16.2 - Hypoglycemia, unspecified (18) Urinary retention ICD Code: R33.9 - Retention of urine, unspecified (19) Acute hypoxemic respiratory failure ICD Code: J96.01 - Acute respiratory failure with hypoxia (20) Sepsis ICD Code: A41.9 - Sepsis, unspecified organism Assessment and Plan Patient is a 62-year-old male with primary medical history of HTN, gout who came into the hospital for bilateral knee pain after a mechanical fall. Patient was found to have oblique fracture through distal right ulna. He was seen by orthopedic MD and recommended non operative treatment. Patient has been experiencing gradual lower extremity weakness and upper extremity weakness. Suspected Transverse Myelitis Acute metabolic encephalopathy - persistent - Recurrent falls and Quadriparesis secondary to suspected transverse myelitis - MRI revealed no acute stroke. He had multifocal white matter changes. Tiny lacunar infarcts of the brainstem. - Lumbar MRI report states L4-L5 disc protrusion with central canal stenosis - Patient was treated in critical care unit and received methylprednisolone 250 mg IV every 6 hours 01/27-02/02, started back on hydrocortisone 02/21/17, initially tapering to 50 mg IV every 8 hours starting 02/26 received 1 dose at 2100 prior to becoming hypotensive. Weaning hydrocortisone taper and stopped . Resumed hydrocortisone 50mg IV Q6hrly on 03/14 as patient became hypotensive following intubation on 03/13 requiring levophed. - LP 01/26 and 02/01. CSF culture negative 01/26, 02/01 Oligoclonal bands negative. CSF/serum IgG index is not elevated. VDRL nonreactive. Cryptococcal antigen negative. - Brain MRI cervical/thoracic spine with mild spinal stenosis C3/C4 to C6/ C7. No cord compression. RPR negative. - Neurology has been following, Dr. Crenshaw. Repeat CT brain 02/10 - negative. - Neurosurgery has been following, Dr. Blackwell, no cord compression recommends non operative treatment - Continue PT/OT. - Continue pain control with a bowel regimen. Acute hypoxemic respiratory failure Healthcare associated pneumonia/Aspiration Pneumonia S/P Tracheostomy placement - He was treated in critical care with Right-sided chest tube placed for pleural effusion. Orally intubated. Extubated 02/23. Reintubated 02/28. Extubated 03/11. Reintubated on 03/13. Right-sided chest tube placement 02/28 information strategist, removed 03/05. Failed attempt to wean successfully due to volume overload and multiple organ failure. Underwent perc tracheostomy 03/14. - He was in severe sepsis that has resolved. - VQ scan 02/[address] PE[address] chest 02/10 - left lower lobe collapse and consolidation. - CT chest 02/27 revealed right greater than left pleural effusions. - Pulmonology following for trach care, downsized trach. Shiley #6 - Albuterol/ipratropium aerosols every 4 hours with albuterol aerosols every 2 hours PRN. - Did not tolerate capping yesterday. On trach collar now. Secretions thick and moderate amount. Patient may need Levsin. - Patient afebrile Systolic heart failure likely chronic with ejection fraction 20-25% Hyperlipidemia, History of hypertension Elevated troponin likely type II demand ischemia, tachycardia - In critical care unit he was on pressors. Levophed on 03/09 following intubation, titrated off after starting hydrocortisone. Started hydrocortisone stress dose on 03/14 (as patient has been on steroids and was just tapered off on 03/09.) Patient had been hypotensive twice when attempting to wean off stress dose hydrocortisone in the past. EKG with nonspecific ST-T changes. 2-D echocardiogram 01/11 revealed EF 20-25%. Mild TR. Pulmonary arterial pressures were normal around 20. Troponin 6.55 on 03/02. - Likely will need stress test of heart once stable. Cannot anticoagulate due to retroperitoneal hematoma at the present time. - Currently on atenolol 25 mg twice a day. Continue amlodipine 10 mg daily. - Atorvastatin 10 mg by mouth daily for dyslipidemia. - Lasix 40mg IV Q12hrs. - Monitor BP Trend Large right retroperitoneal hematoma Erosive esophagitis Adenomatous/hyperplastic colon polyps Severe acute protein calorie malnutrition Gastritis, Diverticulosis, Hiatal hernia Internal and external hemorrhoids Diarrhea Elevated lipase - 02/27 CT chest/abdomen and pelvis - 9.4 x 7.5 renal and 16 x 12 cm right psoas muscle hematoma. Fluid around liver and spleen. Right-sided nephrolithiasis. - CTA abdomen 02/28 - possible blushing around iliac/lumbar vessels. Discussed with IR. s/p attempted embolization. - CT abdomen and pelvis 02/10 atrophic left kidney. Bilateral inguinal hernias fat-containing. Nonobstructing 12 mm right kidney stone. Repeat CT abd/ pelvis did not show evidence of obstruction. - EGD/Colonoscopy-02/22/17 showed gastritis esophagitis, hiatal hernia, diverticulosis and multiple polyps in descending colon and sigmoid which were snared biopsied. Biopsy pending. Dr. Lewis consulted for intervention if needed for elevated IAP. - PEG tube placement by . - Lansoprazole 30 mg twice a day for GI prophylaxis. - Tube feeding Nephro goal 55 - Fecal rectal collection for diarrhea. Lactinex TID. May benefit with Questran - Negative Cdiff. Loperamide? Acute kidney injury in the setting of Chronic kidney disease stage 3-4 History of uric acid kidney stones with prior stent BPH Nonfunctioning left kidney - Sloan placed due to urinary retention and worsening creatinine. Maintain Sloan secondary to urinary retention - RIOS/SPEP negative. - Urology has followed for uric acid nephrolithiasis. Recommended nephrostomy tube if obstruction. Nephrology consulted, hemodialysis per nephrology. Making urine. Due to acute illness holding tamsulosin 0.4 mg by mouth daily for BPH. - Decreased urine output, creatinine increased 04/02 to 1.67. Per nephrology , patient is on Albumin and Lasix IV. Recommends to continue with diureses Septic shock- resolved. Abscess and Suppurative thrombophlebitis left upper extremity MSSA bacteremia Klebsiella UTI ESBL positive Acute aspiration pneumonia/HCAP - Previously treated with Bactrim, ertapenem, intermittent vancomycin, nafcillin. Blood cultures 2, UA ESBL positive Klebsiella UTI. - Repeat blood cultures 2 negative and sputum 03/08 Stenotrophomonas Maltophiloa, Klebsiella Pneumoniae - Sputum 03/14 - Pseudomonas came back resistant to imipenem. - Sputum Culture Repeat 04/01/17 - Pseudomonas Aeroginosa. - ID following. Recommends Tobramycin Nebs x7 days. Signed off to reconsult PRN. Acute blood loss anemia DVT, bilateral posterior tibial vein, IVC filter Septic thrombophlebitis with occlusive thrombus mid cephalic and basilic vein side - Patient has received total of 23 PRBC, 10 FFP, 3 platelets, 1 cryo-02/28. - Ultrasound 01/23/17 - Bilateral lower extremity with occlusive posterior tibial vein DVTs. Heparin was initially started for DVT but was placed on hold due to LP with suspected traumatic tap. IVC filter was placed 01/25/17. Ultrasound LUE 02/10 occlusive thrombus mid cephalic vein, basilic veins. - Trend CBC. Stable. Diabetes mellitus History of prior adrenal insufficiency with shock - EGD colonoscopy completed 02/22. Gastritis and esophagitis, colon polyps. Started Hydrocortisone 100 mg every 8 hours 02/21/17 (Recent high dose steroids use now hypotensive, hypoglycemic), steroids had been tapered off. Resumed stress dose steroids on 03/16 as patient back on Levophed for pressor support after intubation. - Hydrocortisone 12.5mg BID - Levemir 10 units BID. Prandial insulin Aspart 5units TIDAC - Continue sliding scale insulin.. Right distal ulna fracture. - Dr. Nathan with orthopedics has evaluated and recommended nonoperative management. - Right wrist splint in place. Pressure wound tracheostomy wagner site. - Patient was seen with OptiFoam under tracheostomy wagner. Patient has some erosion of skin, and sloughing at the edge of the tracheostomy wagner, OptiFoam serves as a barrier for cushion to avoid further damage of the skin. Site was cleansed with normal saline and OptiFoam was placed. - Change optifoam daily. Gout, possible flare up - Left hand, index finger erythema noted, patient also grimaces and pulls away when left arm is touched or held. - Colchicine 1.2mg x 1 dose given, then 0.6 mg after 1 hour then, 0.6 mg daily x 7 days Full code. Has IVC filter. Pharmacological prophylaxis is on hold due to retroperitoneal hematoma. Discharge Planning Plan is to wean off trach, increase physical activity and DC home with [facility]. Problem Qualifiers (1) Hyperlipidemia: Qualified Codes: E78.5 - Hyperlipidemia, unspecified (2) HTN (hypertension): Qualified Codes: I10 - Essential (primary) hypertension (3) Diabetes mellitus with hyperglycemia: Qualified Codes: E11.65 - Type 2 diabetes mellitus with hyperglycemia (4) Diarrhea: Qualified Codes: A09 - Infectious gastroenteritis and colitis, unspecified (5) Abdominal pain: Qualified Codes: R10.84 - Generalized abdominal pain (6) Sepsis: Qualified Codes: A41.9 - Sepsis, unspecified organism Stacie Branch Apr 06, 2017 08:55
[2017-04-06] MEDS: INSULIN DETEMIR 100 UNITS/ML VIAL SQ SCH ×2 (09:00→22:15)
[2017-04-06] MEDS: SODIUM CHLORIDE 0.9% FLUSH 10 ML FLUSH IV FLUSH SCH ×3 (09:00→22:15)
[2017-04-06] MEDS ORDERED: ALBUMIN 25% INJ 100 ML IV SCH (09:00)
[2017-04-06] MEDS ORDERED: FUROSEMIDE 40 MG/4 ML VIAL IV PUSH SCH (09:00)
[2017-04-06] MEDS: HYDROCORTISONE SOD SUCCINATE 100 MG VIAL IV PUSH SCH ×2 (09:58→22:11)
[2017-04-06] MEDS: POTASSIUM CHLORIDE 25 MEQ EFFERVESCENT TAB PO SCH ×2 (09:59→22:14)
[2017-04-06] MEDS: LANSOPRAZOLE SOLUTAB 30 MG TAB NG SCH ×2 (09:59→22:14)
[2017-04-06] MEDS: LACTOBACILLUS ACIDOPHILUS TAB PO SCH ×3 (09:59→18:00)
[2017-04-06] MEDS: COLCHICINE 0.6 MG TAB PO SCH (09:59)
[2017-04-06] MEDS: TAMSULOSIN HCL 0.4 MG CAP PO SCH ×2 (10:00→22:12)
[2017-04-06] MEDS: ATENOLOL 25 MG TAB PO SCH ×2 (10:01→22:13)
--- NOTE | 2017-04-06 10:58 | HHI.HCPN ---
Reason for visit a. To assist with evaluation and management of symptoms including: shortness of breath, pain, debility b. To assist medical decision maker(s) with: better understanding of current medical conditions; weighing benefits/burdens of medical treatment options; making medical treatment decisions. Subjective/Interval History Patient seen in his room in bed awake, more alert than he was yesterday. No respiratory distress noted. Patient on trach collar-35%, with humidified O2 . Patient O2 saturation high 90s. Patient responding by mouthing words and shaking head for "no" and nodding for "yes". Patient denies pain and is not facially grimacing today. Patient is afebrile and HR is in the 80s. SBP 120s- 130s. Patient`s hands not edematous as well as bilateral lower extremities. Laboratory workup revealing sodium 135, potassium 3.7, BUN/creatinine 19/1.92, random glucose 143, calcium 8.4. No recent imaging. Case discussed with bedside RN Patience and respiratory therapist. RT will continue with capping trials, patient is more alert today than he was yesterday. Telephone call patient`s son Davie and patient`s sister Deb for a medical status update. No response from either one of them. . Family/friend interactions No family at bedside. . Advance Directives Living Will: Never completed Health Care Surrogate: Never completed Durable Power of Electronic Warfare Technical: Never completed Advance Directive Specifics Documented care wishes: No known documented care wishes have been completed. . Objective Vital Signs Date Time Temp Pulse Resp B/P (MAP) Pulse Ox O2 Delivery O2 Flow Rate FiO2 04/06/17 06:18 98.1 88 18 129/60 (83) 98 04/06/17 01:29 98.1 103 20 136/62 (86) 95 04/05/17 21:18 98.8 95 18 130/61 (84) 96 04/05/17 19:53 97 Trach Collar 35 04/05/17 19:00 T-Piece 5.00 30 04/05/17 17:12 100.0 89 18 124/60 (81) 98 04/05/17 14:46 104 04/05/17 12:55 96 T-Piece 5.00 04/05/17 12:21 97.5 87 18 133/70 (91) 96 Intake & Output 04/06/17 04/06/17 07:00 19:00 Intake Total 856 ml Output Total 800 ml Balance 56 ml Tube Feeding 856 ml Output Urine Total 800 ml Physical Exam CONSTITUTIONAL/GENERAL: This is an ill-looking patient, in no acute distress or discomfort TUBES/LINES/DRAINS: PEG tube, #6Tracheostomy-on Trach collar 35%, PIVs, FC SKIN: No jaundice. Ecchymoses on upper extremities. Sacral pressure wound and L heel pressure injury. Wound to anterior neck - tracheostomy insertion area with a foam dressing. Low grade Temp. Not diaphoretic. HEAD: Atraumatic. Normocephalic. EYES: Pupils equal and round, slight reaction.No scleral icterus. No injection or drainage. Fundi not examined. ENT: Trached. Nose without bleeding or purulent drainage. Moist oral mucosa. NECK: Trachea midline. #6 Tracheostomy midline- on Trach collar Wound to anterior neck - tracheostomy insertion area with a foam dressing. CARDIOVASCULAR: Regular rate and rhythm without murmurs, gallops, or rubs. No JVD. RESPIRATORY/CHEST: Symmetrical, clear to auscultation. Breath sounds equal bilaterally. Pt is currently on trach collar 35% GASTROINTESTINAL: Abdomen soft, non-tender, nondistended. No guarding. Bowel sounds present. Nepro-Goal infusing at 55ml/hr- Tolerating. Liquid stool GENITOURINARY: Without palpable bladder distension. Sloan catheter in with clear urine. Scrotal edema. MUSCULOSKELETAL: Gout tophi to fingers, knees, elbows and both ankles. No edema to all 4 extremities NEUROLOGICAL: Trached. Patient is more alert today than he was yesterday. Followed command with all 4 extremities. Trying to mouth some words. PSYCHIATRIC: No obvious anxiety/depression. no apparent hallucinations or other psychotic thought process. . Diagnostic Tests Laboratory Laboratory Tests Test 04/04/17 08:49 04/05/17 08:02 04/05/17 11:44 04/06/17 07:22 Blood Urea Nitrogen 85 MG/DL (7-18) 89 MG/DL (7-18) 90 MG/DL (7-18) Creatinine 1.87 MG/DL (0.60-1.30) 1.87 MG/DL (0.60-1.30) 1.92 MG/DL (0.60-1.30) Random Glucose 168 MG/DL (74-106) 163 MG/DL (74-106) 143 MG/DL (74-106) Calcium Level 8.5 MG/DL (8.5-10.1) 8.2 MG/DL (8.5-10.1) 8.4 MG/DL (8.5-10.1) Sodium Level 135 MEQ/L (136-145) 135 MEQ/L (136-145) 135 MEQ/L (136-145) Potassium Level 3.3 MEQ/L (3.5-5.1) 3.5 MEQ/L (3.5-5.1) 3.7 MEQ/L (3.5-5.1) Chloride Level 98 MEQ/L (98-107) 98 MEQ/L (98-107) 96 MEQ/L (98-107) Carbon Dioxide Level 26.5 MEQ/L (21.0-32.0) 27.6 MEQ/L (21.0-32.0) 29.7 MEQ/L (21.0-32.0) Anion Gap 11 MEQ/L (5-15) 9 MEQ/L (5-15) 9 MEQ/L (5-15) Estimat Glomerular Filtration Rate 37 ML/MIN (>89) 37 ML/MIN (>89) 36 ML/MIN (>89) White Blood Count 11.4 TH/MM3 (4.0-11.0) Red Blood Count 2.90 MIL/MM3 (4.50-5.90) Hemoglobin 8.4 GM/DL (13.0-17.0) Hematocrit 25.3 % (39.0-51.0) Mean Corpuscular Volume 87.2 FL (80.0-100.0) Mean Corpuscular Hemoglobin 29.1 PG (27.0-34.0) Mean Corpuscular Hemoglobin Concent 33.4 % (32.0-36.0) Red Cell Distribution Width 15.8 % (11.6-17.2) Platelet Count 167 TH/MM3 (150-450) Mean Platelet Volume 9.0 FL (7.0-11.0) Blood Gas Puncture Site RT RADIAL Blood Gas Patient Temperature 98.6 Blood Gas HCO3 29 mmol/L (22-26) Blood Gas Base Excess 4.6 mmol/L (-2-2) Blood Gas Oxygen Saturation 91 % (90-100) Arterial Blood pH 7.42 (7.380-7.420) Arterial Blood Partial Pressure CO2 45 mmHg (38-42) Arterial Blood Partial Pressure O2 68 mmHg (61-120) Arterial Blood Oxygen Content 16.2 Vol % (12.0-20.0) Arterial Blood Carboxyhemoglobin 2.5 % (0-4) Arterial Blood Methemoglobin 0.9 % (0-2) Blood Gas Hemoglobin 12.7 G/DL (12.0-16.0) Oxygen Delivery Device MASK Blood Gas Liter Flow 6 L/M Blood Gas Inspired Oxygen 40 % Result Diagram: 04/05/17 0802 04/06/17 0722 Procedures 01/25/2017- Retrievable IVC Filter placement 01/26/17-lumbar puncture with fluoroscopy-by interventional radiology 02/01/17- lumbar puncture fluoroscopy by interventional radiology 02/10/17- Endotracheal Intubation 02/10/17-left IJ central venous line placed 02/10/17-left femoral arterial line placed 02/11/17-Diagnostic and therapeutic bronchoscopy with bronchoalveolar lavage 02/11/17-Left upper extremity incision and debridement with excision of septic cephalic vein 02/13/17- Extubated 02/20/17- endotracheal intubation 02/20/17- Left subclavian central line placement 02/20/17-Right radial A-line placement 02/22/17-EGD/colonoscopy 02/28/17-right radial a line 02/28/17- Endotracheal intubation 02/28/17- right sided introducer catheter placement 02/28/17- Right IJ central line placement 02/28/17-Right chest tube placement 02/28/17- Embolization of inferior and superior sacral branches of right internal iliac artery 03/01/17- Hemodialysis access catheter 03/03/17-Right IJ central line placement 03/11/17-Extubated 03/13/17- Endotracheal intubation 03/14/17-Tracheostomy placement 03/15/17-PEG tube placement . Assessment and Plan Disease Oriented Problem List: (1) Acute respiratory failure (2) Septic shock (3) Aspiration pneumonia (4) Acute renal failure (5) CKD (chronic kidney disease) stage 3, GFR 30-59 ml/min (6) Cardiomyopathy (7) DVT of lower extremity, bilateral (8) Thrombophlebitis arm (9) Diabetes mellitus (10) Gout (11) HTN (hypertension) (12) Hyperlipidemia Symptom Scale: (1) Shortness of breath 0-10 Scale: Unable to quantify Comment: Trach downsized to #6. Currently on Trach collar 35%. Ongoing capping trials. . (2) Debility 0-10 Scale: Unable to quantify Comment: Progressive. . (3) Pain 0-10 Scale: Unable to quantify Comment: History of falls, gout, arthritis, and currently bedbound. . Pertinent Non-Medical Issues Psychosocial:Patient was born and raised in [place], [place]. Patient was once for 20 years, now and has 2 adult sons. 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 He recently resigned due to failing health. Spiritual: No mormonism affiliation Legal: Per [place] statutes, in the absence of written advanced directives healthcare proxy decision making falls to the patient's 2 adult children. Patient's son (Davie) lives locally and wishes to participate in the role of the healthcare proxy decision maker. Palliative care has attempted to contact Arnel, has not call back. Patient`s sister Deb and patients brother verbalized that they have been updating Arnel on patient`s medical status. Ethical issues impacting care: No known ethical issues impacting care at this time. . Important Contacts Son-Davie Kerr - Son-Arnel Kerr- -cell -home Sister-Deb Curry . Prognosis Mr Kerr is a 62 years old male with a past medical history of hypertension, asthma, diabetes, hyperlipidemia, chronic kidney disease and gout. Patient presented to the ED on 01/22/17 complaining of bilateral knee and right arm pain after a mechanical fall 4 or 5 days prior to coming to the ER. Clinical course complicated with increased weakness leading to numerous diagnostic work ups for possible transverse myelitis, DVTs, retroperitoneal hematoma, aspiration pneumonia, intubation x 4 times, septic and hemorrhagic shock requiring support with pressors and multiple pRBC, FFP transfusions as well as platelets and cryo , renal failure requiring hemodialysis and sacral wound Given ongoing comorbidities, and prolonged hospitalization, patient remains at risk for further complications, deterioration and decline. Code Status: Full Code Plan PLAN: Legal decision maker: Patient is currently trached on TPierce and is not able to make any medical decisions for himself at this time. Patient has 2 adult sons Davie Kerr and Arnel Kerr. According to [place] Statute, his two aforementioned sons will serve as his health care proxys. Patient`s son Davie is acting in the role of HCP decision maker independently at this time given that he is the one who is reasonably available for consultation. Goals: 04/06/17- Remain Aggressive. Patient alert today, currently on a trach collar 35% and RT will continue with capping trials. Telephone call patient`s son Davie and patient`s sister Deb for a medical status update. No response from either one of them. CODE STATUS: Full Code SYMPTOMS: * Shortness of breath: Multifactorial. Patient has had aspiration pneumonia. Patient has been intubated 4 times this hospitalization. Patient has a tracheostomy. On duonebs. Patient is also on Hydrocortisone 50mg q 6 hours. Intranet Developer following. Trach downsized to a 6. Patient is currently on a trach collar 35%. No respiratory distress noted, O2 saturation high 90s. Wound care following on wound to tracheostomy insertion area. Recommending continuing with capping trials and reducing use of anxiolytic. * Pain: Patient presented initially complaining of pain to right wrist and bilateral knees after a mechanical fall. Patient has a history of gout, arthritis, multiple falls and is currently bedbound. Patient`s pain medication dose decreased from Oxycodone 10mg to Oxycodone 5mg q 4 hours ATC. Patient also on Hydrocortisone. Denies pain today. * Debility: Progressive. Patient has had decline in his health for the past 4 months, including progressively increased weakness and difficulty ambulating and prolonged hospitalization with multiple setbacks. Patient remains at high risk for further physical deconditioning and debility. PT and OT following with patient. PT and OT following. Patient will benefit from getting OOB to a stretcher chair . PT and OT following. Recommending Speech therapy consultation if patient tolerates Trials. Palliative care will continue to follow the patient during hospital course as condition evolves, to assist patient/decision-maker with understanding of their medical conditions, weighing benefits/burdens of treatment options, for clarification of goals of treatment. Additionally will assist with any symptoms of palliative concern. . Aftab Cartwright Apr 06, 2017 10:58
--- NOTE | 2017-04-06 11:38 | HHI.NPPN ---
Subjective History of Present Illness 61-year-old with history of urinary stone Additional Remarks Patient had trach on trach o2, not in distress. Review of Systems General Constitutional: Fatigue Objective Data Data Vital Signs Date Time Temp Pulse Resp B/P (MAP) Pulse Ox O2 Delivery O2 Flow Rate FiO2 04/06/17 10:28 100 Trach Collar 35 04/06/17 10:16 98.5 91 18 138/64 (88) 96 04/06/17 06:18 98.1 88 18 129/60 (83) 98 04/06/17 01:29 98.1 103 20 136/62 (86) 95 04/05/17 21:18 98.8 95 18 130/61 (84) 96 04/05/17 19:53 97 Trach Collar 35 04/05/17 19:00 T-Piece 5.00 30 04/05/17 17:12 100.0 89 18 124/60 (81) 98 04/05/17 14:46 104 04/05/17 12:55 96 T-Piece 5.00 04/05/17 12:21 97.5 87 18 133/70 (91) 96 -: 04/05/17 0802 04/06/17 0722 Physical Exam General Appearance: Pale Eyes Eye Exam: Pupils Equal Throat Throat Exam: Oral Mucosa [place] & Moist Neck Neck Exam: Neck Supple Pulmonary Resp Exam: Clear Bilaterally Cardiology CV Exam: Normal Sinus Rhythm Gastrointestinal/Abdomen GI Exam: Non-Tender, Distended Extremeties Extremities Exam: Moderate Edema, Pitting Edema Neurologic Neuro Exam: Awake Assessment/Plan Problem List: (1) Acute renal failure ICD Codes: N17.9 - Acute kidney failure, unspecified Status: Acute Plan: Patient developed Hypotension,sepsis staph aureus respiratory failure and increase WBC. 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 infection playing a role has colonize airway Pseudomonas growing UOP improved with Lasix Cr higher stopped albumin/Lasix 40 mg daily as Cr higher getting water flushes 400 cc q 4 Na 135 lower it to 300 cc q 4 Rx underlying infection? (2) CKD (chronic kidney disease) stage 3, GFR 30-59 ml/min ICD Codes: N18.3 - Chronic kidney disease, stage 3 (moderate) Status: Chronic Plan: Ultrasound revealed chronic kidney disease there is no kidney stones (3) Diabetes ICD Codes: E11.9 - Type 2 diabetes mellitus without complications Plan: Continue to monitor (4) Distal end of ulna fracture, closed ICD Codes: S52.609A - Unspecified fracture of lower end of unspecified ulna, initial encounter for closed fracture Status: Acute Plan: Orthopedic is following Problem Qualifiers (1) Acute renal failure: Qualified Codes: N17.9 - Acute kidney failure, unspecified Laura Liao MD Apr 06, 2017 11:38
[2017-04-06] MEDS ORDERED: COLCHICINE 0.6 MG TAB PO ONE (12:00)
--- NOTE | 2017-04-06 12:48 | PD.WCN.NOT ---
Wound Consult Description: Patient seen for follow up of Unstageable wound to sacrococcygeal area Communicated with: ROHINI sosa and call placed to Doctor Kathryn Chairez for orders Recommendation: Continue to offload pressure from sacrum and right buttock with Q2H turns. Please Continue current recommendations for wound care as follows: Cleanse wound to sacral area with normal saline only and pat dry.Apply Hector thick Santyl ointment just over wound bed.Cover with Maxorb II and secure with ABD pads, and Medfix tape. Please apply skin prep to periwound before applying tape. Change dressing daily Please cleanse cleanse diffuse unroofed bullae to bilateral flanks and to periwound of sacrococcygeal wound with normal saline and pat dry before covering wounds with Xeroform in a single layer just over wound beds and covering with dry cover dressings. change dressings daily or PRN if saturated or dislodged Apply Calazime barrier cream to scrotal and bilateral groin areas and leave open to air. Continue to cleanse wound below trach with normal saline and apply Optifoam basic secured with paper tape, change every 3 days or PRN Additional Information: Patient seen on for follow up of Sacral wound . Patient turned with maximum assist to L side with the assistance of automobile service writer, and Patience sosa, Removed dressing in place reveal Sacrococcygeal and bilateral buttocks wound. Dignishield in place is leaking, tube appears to need irrigation .Current treatment for wound is Cleanse wound to sacral area with normal saline or wound cleanser and pat dry, apply Hydrogel to eschar only cover with dry 4x4 gauze. Cover entire wound area with ABD pads, secured with tape. Please apply skin prep to periwound before applying tape. . Wound bed presents with ~60% thinner moist eschar that is loosely adherent, ~40% vascular tissue Wound has moderate sero-sanguinous drainage has a mild odor.Diffuse small unroofed bullae can be seen to bilateral flank areas. and scattered around periwound, possibly from use of plastic tape. Wound measures ~17.3cm x ~12cm x eschar. Wound margin are jagged between 4 and 8 o'clock Wound has a round shape and covers the sacrum, coccyx, and bilateral buttocks. Applied hydrogel just over black eschar to soften, dry 4x4 gauze was then applied just over eschar. Covered entire wound with two ABD pads, secured with Medfix. Sprayed skin prep to periwound and before applying tape.Patient is laying on [place] airapy bed. Removed soiled thick cloth pad and ultra sorb pad from under patient and replaced with 2 clean ultra sorb pads on top of turn sheet..positioned off bottom to offload pressure from elbert prominences. Will change recommendations as noted based on presentation of sacral wound today. Patient will need plastics for faster debridement of eschar when stable L heel previously noted unstageable wound is still noted covered with scab and appears to be resolving. Dressing below trach site was changed earlier today by Respiratory therapist. Ashley Fuller [facility] Apr 06, 2017 12:48
[2017-04-06] MEDS ORDERED: HYOSCYAMINE SOLN 0.125 MG/ML 15 ML BTL PO ONE (14:45)
--- NOTE | 2017-04-06 15:47 | RADRPT ---
EXAM DATE/TIME: 04/06/2017 14:50 [facility] COMPARISON: CHEST SINGLE AP, April 01, 2017, 23:42. INDICATIONS : Congestion. MEDICAL HISTORY : Hypertension. Diabetes mellitus type II. SURGICAL HISTORY : renal stents ENCOUNTER: Initial ACUITY: 4 - 6 days PAIN SCORE: Non-responsive. LOCATION: Bilateral chest FINDINGS: A single view of the chest demonstrates left pleural effusion and basilar density. Right lung is saturnino r. Tracheostomy uncganged. Osseous structures are intact. CONCLUSION: Left pleural effusion and basilar density. Armando Dodd MD on April 06, 2017 at 15:38 Board Certified Radiologist. This report was verified electronically.
[2017-04-06] MEDS: ATORVASTATIN 10 MG TAB PO SCH (22:13)
[2017-04-07] VITALS (9 sets, daily range): BP systolic 108–138; BP diastolic 65–80; PULSE 79–110; RESP 17–23; TEMP 97.3–98.8; O2SAT 97–100
[2017-04-07] MEDS: oxyCODONE HCL ORAL CONC 5 MG/0.25 ML SYRINGE PO SCH ×6 (01:32→23:58)
[2017-04-07] MEDS: FREE WATER G-TUBE SCH ×5 (04:00→16:00)
[2017-04-07 07:56] LABS: BICARBONATE 28.4 MEQ/L (21.0-32.0); POTASSIUM 3.6 MEQ/L (3.5-5.1)
[2017-04-07] MEDS: CHLORHEXIDINE 0.12% (ORAL KIT) 15 ML CUP MT SCH (08:00)
[2017-04-07] MEDS: SODIUM CHLORIDE 0.9% FLUSH 10 ML FLUSH IV FLUSH SCH ×3 (09:00→21:00)
[2017-04-07] MEDS: ATENOLOL 25 MG TAB PO SCH ×2 (09:37→23:57)
[2017-04-07] MEDS: TAMSULOSIN HCL 0.4 MG CAP PO SCH (09:37)
[2017-04-07] MEDS: LANSOPRAZOLE SOLUTAB 30 MG TAB NG SCH (09:37)
[2017-04-07] MEDS: INSULIN ASPART SUPPLEMENTAL SCALE SQ SCH ×4 (09:37→21:00)
[2017-04-07] MEDS: INSULIN DETEMIR 100 UNITS/ML VIAL SQ SCH ×2 (09:37→21:00)
[2017-04-07] MEDS: INSULIN ASPART 1,000 UNITS/10 ML VIAL SQ SCH ×3 (09:37→18:24)
[2017-04-07] MEDS: COLCHICINE 0.6 MG TAB PO SCH (09:38)
[2017-04-07] MEDS: LACTOBACILLUS ACIDOPHILUS TAB PO SCH ×3 (09:38→18:24)
[2017-04-07] MEDS: POTASSIUM CHLORIDE 25 MEQ EFFERVESCENT TAB PO SCH (09:39)
[2017-04-07] MEDS: HYDROCORTISONE SOD SUCCINATE 100 MG VIAL IV PUSH SCH (09:40)
--- NOTE | 2017-04-07 10:32 | HHI.PR ---
Subjective Remarks Follow-up visit metabolic encephalopathy, transverse myelitis, acute respiratory failure status post tracheostomy. Patient seen and examined today. Laying in bed. Awake and alert. Patient starts talking. When his trach was covered patient was asking "Where is my car?" "When can I drive again?". Discussed and explained his condition and that he needs to be better first. Patient thinks that he is in a hotel in [place]. Denies he has a and was adamant yelling "I don't have a ." Denies pain and discomfort. Denies SOB / dyspnea. Denies chest pain, palpitations, headaches, dizziness. Denies fevers , chills, nausea, vomiting. Objective Vitals Vital Signs Date Time Temp Pulse Resp B/P (MAP) Pulse Ox O2 Delivery O2 Flow Rate FiO2 04/07/17 08:00 97.7 93 17 108/67 (81) 97 04/07/17 04:15 98.0 110 23 128/80 (96) 99 04/07/17 00:40 97.6 106 22 130/65 (86) 99 04/06/17 21:45 Trach Collar 28 04/06/17 20:50 98.1 101 21 132/69 (90) 99 04/06/17 16:45 90 04/06/17 16:40 98.6 84 18 132/64 (86) 98 04/06/17 13:14 98.8 96 18 136/64 (88) 96 04/06/17 12:00 98 Trach Collar 5.00 28 I/O 04/06/17 04/06/17 04/06/17 04/07/17 04/07/17 04/07/17 07:00 15:00 23:00 07:00 15:00 23:00 Intake Total 856 ml 100 ml 0 ml 0 ml Output Total 800 ml 1500 ml 800 ml Balance 56 ml 100 ml -1500 ml -800 ml Intake Oral 0 ml 0 ml IV Total 100 ml Tube Feeding 856 ml Output Urine Total 800 ml 1500 ml 700 ml Stool Total 0 ml 100 ml Result Diagram: 04/05/17 0802 04/07/17 0656 Imaging Last Impressions Chest X-Ray 04/06/17 0000 Signed Impressions: Service Date/Time: Thursday, April 06, 2017 14:50 - CONCLUSION: Left pleural effusion and basilar density. Armando Dodd MD Renal Ultrasound 04/02/17 0000 Signed Impressions: Service Date/Time: Sunday, April 02, 2017 16:59 - CONCLUSION: Limited exam with the left kidney being unable to be evaluated in the bladder not distended. There do appear to be multiple shadowing stones at the right kidney without hydronephrosis. Angelo Manzo MD Wrist X-Ray 03/27/17 Signed Impressions: Service Date/Time: Monday, March 27, 2017 13:21 - CONCLUSION: 1. No acute fracture is identified. A portion of the previously documented distal ulna fracture remains visualized. 2. 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 Angelo Allen MD Aortography 02/28/17 0000 Signed Impressions: Service Date/Time: Tuesday, February 28, 2017 08:01 - CONCLUSION: 1. Active hemorrhage from distal right lateral sacral and iliolumbar branches successfully coil and Gelfoam embolized, as above. Juan Bhakta MD Abdomen/Pelvis CT 02/28/17 0000 Signed Impressions: Service Date/Time: Tuesday, February 28, 2017 06:51 - CONCLUSION: 1. The right retroperitoneal hematoma has increased in size, as above. There are 2 serpiginous arterially enhancing structures visualized, one in the right psoas muscle and another extending into the hematoma at the right iliac fossa. These could represent sites of continued active bleeding. 2. Stable moderate size left and small right pleural effusion with associated compressive atelectasis. 3. Stable small volume of free fluid in the abdomen and pelvis. There is also anasarca. The findings concerning the retroperitoneal hematoma were discussed with Dr. Aguiar via telephone at approximately 7: 10 AM on 02/28/2017. Angelo Allen MD Chest CT 02/27/17 0000 Signed Impressions: Service Date/Time: Monday, February 27, 2017 18:12 - CONCLUSION: 1. Bilateral pleural effusions with bibasilar atelectasis, left greater than right. Tom Sanchez MD Abdomen X-Ray 02/26/17 0000 Signed Impressions: Service Date/Time: Sunday, February 26, 2017 14:52 - CONCLUSION: 1. Nonobstructive bowel gas pattern. Juan Bhakta MD Upper Extremity Ultrasound 02/10/17 Signed Impressions: Service Date/Time: Friday, February 10, 2017 18:46 - CONCLUSION: Occlusive thrombus in the cephalic and basilic veins. Benjamin Person MD Lung Scan-V Nuclear Medicine 02/10/17 Signed Impressions: Service Date/Time: Friday, February 10, 2017 22:17 - CONCLUSION: Low probability pulmonary embolism. Candido Patton MD Head CT 02/10/17 Signed Impressions: Service Date/Time: Friday, February 10, 2017 23:51 - CONCLUSION: Negative noncontrast CT brain. Candido Patton MD Lumbar Puncture Fluoroscopy 02/01/17 Signed Impressions: Service Date/Time: January 09:35 - CONCLUSION: Uncomplicated fluoroscopically guided lumbar puncture. CSF was clear. Nabeel Peralta MD Head Magnetic Resonance Angiography 01/27/17 Signed Impressions: Service Date/Time: Friday, January 27, 2017 10:33 - CONCLUSION: No intracranial vascular abnormality is identified. There is no aneurysm visualized. Angelo Allen MD IVC Filter Placement X-Ray 01/25/17 Signed Impressions: Service Date/Time: January 10:29 - CONCLUSION: Uncomplicated inferior vena cava filter placement as above. Yung Fowler MD Thoracic Spine MRI 01/24/17 Signed Impressions: Service Date/Time: Tuesday, January 24, 2017 22:29 - CONCLUSION: 1. Mild degenerative spondylosis most prominently at T11-L1 with slight effacement of the anterior thecal sac and left lateral recess. No significant neural foraminal stenosis. 2. No acute fracture. Juan Bhakta MD Lumbar Spine MRI 01/23/17 Signed Impressions: Service Date/Time: Monday, January 23, 2017 17:01 - CONCLUSION: 1. At L4-5 is a broad-based disc protrusion with severe central canal and lateral recess stenosis and flattening of the exiting right L4 nerve root. 2. L5-S1 there is a disc protrusion and moderate stenosis with flattening of the exiting L5 nerve roots bilaterally. 3. At L3-4 there is a moderate to severe central stenosis and lateral recess stenosis with mild foraminal stenosis. 4. No acute fracture or spondylolisthesis. Trace Holloway MD Lower Extremity Ultrasound 01/23/17 Signed Impressions: Service Date/Time: Monday, January 23, 2017 09:53 - CONCLUSION: Bilateral focal lower extremity DVT involving the posterior tibial veins. Angelo Garrido MD Cervical Spine MRI 01/23/17 Signed Impressions: Service Date/Time: Monday, January 23, 2017 17:01 - CONCLUSION: 1. Multilevel cervical spine degenerative changes as above. 2. Mild degrees of spinal stenosis at C3/C4-C6/C7. No cord compression or cord signal abnormality. 3. Age indeterminate left paracentral/foraminal disc protrusion at C6/C7. 4. Multilevel foraminal stenosis, most severe on the left at C6/C7. Please see individual levels above. 5. No fracture or subluxation of the cervical spine. Angelo aGrrido MD Brain MRI 01/23/17 Signed Impressions: Service Date/Time: Monday, January 23, 2017 17:01 - CONCLUSION: 1. No acute stroke or other acute intracranial abnormality demonstrated. 2. Moderate severity chronic white matter changes, nonspecific but most likely related to chronic small vessel disease. 3. Few scattered tiny lacunar infarcts of the brainstem. 4. Given the findings are not entirely specific, clinical evaluation for possible multiple sclerosis recommended. Angelo Garrido MD Knee X-Ray 01/22/172053 Signed Impressions: Service Date/Time: Sunday, January 22, 2017 21:17 - CONCLUSION: 1. Evidence of moderate to large joint effusion. 2. No acute fracture or malalignment. 3. Mild 3 compartment osteoarthritic change. Benjamin Person MD Hip and Pelvis X-Ray [id number]/22/172053 Signed Impressions: Service Date/Time: Sunday, January 22, 2017 21:10 - CONCLUSION: 1. Mild to moderate degenerative change of both hips with no acute fracture or malalignment. There is flattening and remodeling of the right humeral head. Benjamin Person MD Objective Remarks GENERAL: This is a well-nourished, well-developed patient, in no apparent distress. SKIN: Warm and dry. HEENT: Normocephalic. Pupils equal round and reactive. Nose without bleeding. Airway patent. NECK: Tracheostomy site capped. Optifoam under tracheostomy site wagner, skin sloughing possibly pressure related as patient has short neck. CARDIOVASCULAR: Regular rate and rhythm without murmurs, gallops, or rubs. RESPIRATORY: Diminished bases. No wheezes, rales, or rhonchi. 2L nc. O2 sat 100 % GASTROINTESTINAL: Abdomen soft, non-tender, nondistended. Bowel Sounds active x4. Fecal incontinence bag in place draining brown stool. MUSCULOSKELETAL: Extremities without clubbing, cyanosis. Extremities with trace edema. Notable tophi on small joints fingers and toes. Left arm edema/ slight erythema. NEUROLOGICAL: Awake and alert. Oriented to person. No focal neuro deficit. Moves all extremities weakly. Normal speech, minimal verbalization. Procedures IVC filter placement 01/25/2017 LP 01/26/2017 Date of Insertion: Mar 03, 2017 Line: Central Venous Catheter Side: Right Location: Internal, Jugular A/P Problem List: (1) Transverse myelitis ICD Code: G37.3 - Acute transverse myelitis in demyelinating disease of central nervous system Status: Acute (2) Septic shock ICD Code: A41.9 - Sepsis, unspecified organism; R65.21 - Severe sepsis with septic shock Status: Resolved (3) HCAP (healthcare-associated pneumonia) ICD Code: J18.9 - Pneumonia, unspecified organism (4) Acute respiratory failure with hypoxia and hypercarbia ICD Code: J96.01 - Acute respiratory failure with hypoxia; J96.02 - Acute respiratory failure with hypercapnia Status: Resolved (5) Hyperlipidemia ICD Code: E78.5 - Hyperlipidemia, unspecified Status: Chronic (6) HTN (hypertension) ICD Code: I10 - Essential (primary) hypertension (7) DVT of lower extremity, bilateral ICD Code: I82.403 - Acute embolism and thrombosis of unspecified deep veins of lower extremity, bilateral (8) Diabetes mellitus with hyperglycemia ICD Code: E11.65 - Type 2 diabetes mellitus with hyperglycemia (9) Hypocalcemia ICD Code: E83.51 - Hypocalcemia (10) Hypernatremia ICD Code: E87.0 - Hyperosmolality and hypernatremia (11) Hypokalemia ICD Code: E87.6 - Hypokalemia (12) Acute metabolic encephalopathy ICD Code: G93.41 - Metabolic encephalopathy (13) Quadriparesis ICD Code: G82.50 - Quadriplegia, unspecified Status: Acute (14) BREEZY (acute kidney injury) ICD Code: N17.9 - Acute kidney failure, unspecified (15) Diarrhea ICD Code: R19.7 - Diarrhea, unspecified (16) Abdominal pain ICD Code: R10.9 - Unspecified abdominal pain (17) Hypoglycemia ICD Code: E16.2 - Hypoglycemia, unspecified (18) Urinary retention ICD Code: R33.9 - Retention of urine, unspecified (19) Acute hypoxemic respiratory failure ICD Code: J96.01 - Acute respiratory failure with hypoxia (20) Sepsis ICD Code: A41.9 - Sepsis, unspecified organism Assessment and Plan Patient is a 62-year-old male with primary medical history of HTN, gout who came into the hospital for bilateral knee pain after a mechanical fall. Patient was found to have oblique fracture through distal right ulna. He was seen by orthopedic MD and recommended non operative treatment. Patient has been experiencing gradual lower extremity weakness and upper extremity weakness. Suspected Transverse Myelitis Acute metabolic encephalopathy - persistent - Recurrent falls and Quadriparesis secondary to suspected transverse myelitis - MRI revealed no acute stroke. He had multifocal white matter changes. Tiny lacunar infarcts of the brainstem. - Lumbar MRI report states L4-L5 disc protrusion with central canal stenosis - Patient was treated in critical care unit and received methylprednisolone 250 mg IV every 6 hours 01/27-02/02, started back on hydrocortisone 02/21/17, initially tapering to 50 mg IV every 8 hours starting 02/26 received 1 dose at 2100 prior to becoming hypotensive. Weaning hydrocortisone taper and stopped . Resumed hydrocortisone 50mg IV Q6hrly on 03/14 as patient became hypotensive following intubation on 03/13 requiring levophed. - LP 01/26 and 02/01. CSF culture negative 01/26, 02/01 Oligoclonal bands negative. CSF/serum IgG index is not elevated. VDRL nonreactive. Cryptococcal antigen negative. - Brain MRI cervical/thoracic spine with mild spinal stenosis C3/C4 to C6/ C7. No cord compression. RPR negative. - Neurology has been following, Dr. Crenshaw. Repeat CT brain 02/10 - negative. - Neurosurgery has been following, Dr. Blackwell, no cord compression recommends non operative treatment - Continue PT/OT. - Continue pain control with a bowel regimen. Acute hypoxemic respiratory failure Healthcare associated pneumonia/Aspiration Pneumonia S/P Tracheostomy placement - He was treated in critical care with Right-sided chest tube placed for pleural effusion. Orally intubated. Extubated 02/23. Reintubated 02/28. Extubated 03/11. Reintubated on 03/13. Right-sided chest tube placement 02/28 gis technician, removed 03/05. Failed attempt to wean successfully due to volume overload and multiple organ failure. Underwent perc tracheostomy 03/14. - He was in severe sepsis that has resolved. - VQ scan 02/[address] PE[address] CT chest 02/10 - left lower lobe collapse and consolidation. - CT chest 02/27 revealed right greater than left pleural effusions. - Pulmonology following for [facility], downsized trach. [facility]6 - Albuterol/ipratropium aerosols every 4 hours with albuterol aerosols every 2 hours PRN. - Did not tolerate capping. On trach collar now. Secretions thick and moderate amount. - Started on Levsin. CXR repeat showed pleural effusion and basilar density - Patient afebrile Systolic heart failure likely chronic with ejection fraction 20-25% Hyperlipidemia, History of hypertension Elevated troponin likely type II demand ischemia, tachycardia - In critical care unit he was on pressors. Levophed on 03/09 following intubation, titrated off after starting hydrocortisone. Started hydrocortisone stress dose on 03/14 (as patient has been on steroids and was just tapered off on 03/09.) Patient had been hypotensive twice when attempting to wean off stress dose hydrocortisone in the past. EKG with nonspecific ST-T changes. 2-D echocardiogram 01/11 revealed EF 20-25%. Mild TR. Pulmonary arterial pressures were normal around 20. Troponin 6.55 on 03/02. - Likely will need stress test of heart once stable. Cannot anticoagulate due to retroperitoneal hematoma at the present time. - Currently on atenolol 25 mg twice a day. Continue amlodipine 10 mg daily. - Atorvastatin 10 mg by mouth daily for dyslipidemia. - Lasix 40mg IV Q12hrs. - Monitor BP Trend Large right retroperitoneal hematoma Erosive esophagitis Adenomatous/hyperplastic colon polyps Severe acute protein calorie malnutrition Gastritis, Diverticulosis, Hiatal hernia Internal and external hemorrhoids Diarrhea Elevated lipase - 02/27 CT chest/abdomen and pelvis - 9.4 x 7.5 renal and 16 x 12 cm right psoas muscle hematoma. Fluid around liver and spleen. Right-sided nephrolithiasis. - CTA abdomen 02/28 - possible blushing around iliac/lumbar vessels. Discussed with IR. s/p attempted embolization. - CT abdomen and pelvis 02/10 atrophic left kidney. Bilateral inguinal hernias fat-containing. Nonobstructing 12 mm right kidney stone. Repeat CT abd/ pelvis did not show evidence of obstruction. - EGD/Colonoscopy-02/22/17 showed gastritis esophagitis, hiatal hernia, diverticulosis and multiple polyps in descending colon and sigmoid which were snared biopsied. Biopsy pending. Dr. Lewis consulted for intervention if needed for elevated IAP. - PEG tube placement by . - Lansoprazole 30 mg twice a day for GI prophylaxis. - Tube feeding Nephro goal 55 - Fecal rectal collection for diarrhea. Lactinex TID. May benefit with Questran - Negative Cdiff. Loperamide? Acute kidney injury in the setting of Chronic kidney disease stage 3-4 History of uric acid kidney stones with prior stent BPH Nonfunctioning left kidney - Sloan placed due to urinary retention and worsening creatinine. Maintain Sloan secondary to urinary retention - RIOS/SPEP negative. - Urology has followed for uric acid nephrolithiasis. Recommended nephrostomy tube if obstruction. Nephrology consulted, hemodialysis per nephrology. Making urine. Due to acute illness holding tamsulosin 0.4 mg by mouth daily for BPH. - Decreased urine output, creatinine increased 04/02 to 1.67. Per nephrology , patient is on Albumin and Lasix IV. Recommends to continue with diureses Septic shock- resolved. Abscess and Suppurative thrombophlebitis left upper extremity MSSA bacteremia Klebsiella UTI ESBL positive Acute aspiration pneumonia/HCAP - Previously treated with Bactrim, ertapenem, intermittent vancomycin, nafcillin. Blood cultures 2, UA ESBL positive Klebsiella UTI. - Repeat blood cultures 2 negative and sputum 03/08 Stenotrophomonas Maltophiloa, Klebsiella Pneumoniae - Sputum 03/14 - Pseudomonas came back resistant to imipenem. - Sputum Culture Repeat 04/01/17 - Pseudomonas Aeroginosa. - ID following. Recommends Tobramycin Nebs x7 days. Signed off to reconsult PRN. Acute blood loss anemia DVT, bilateral posterior tibial vein, IVC filter Septic thrombophlebitis with occlusive thrombus mid cephalic and basilic vein side - Patient has received total of 23 PRBC, 10 FFP, 3 platelets, 1 cryo-02/28. - Ultrasound 01/23/17 - Bilateral lower extremity with occlusive posterior tibial vein DVTs. Heparin was initially started for DVT but was placed on hold due to LP with suspected traumatic tap. IVC filter was placed 01/25/17. Ultrasound LUE 02/10 occlusive thrombus mid cephalic vein, basilic veins. - Trend CBC. Stable. Diabetes mellitus History of prior adrenal insufficiency with shock - EGD colonoscopy completed 02/22. Gastritis and esophagitis, colon polyps. Started Hydrocortisone 100 mg every 8 hours 02/21/17 (Recent high dose steroids use now hypotensive, hypoglycemic), steroids had been tapered off. Resumed stress dose steroids on 03/16 as patient back on Levophed for pressor support after intubation. - Hydrocortisone 12.5mg BID - Levemir 10 units BID. Prandial insulin Aspart 5units TIDAC - Continue sliding scale insulin.. Right distal ulna fracture. - Dr. Nathan with orthopedics has evaluated and recommended nonoperative management. - Right wrist splint in place. Pressure wound tracheostomy wagner site. - Patient was seen with OptiFoam under tracheostomy wagner. Patient has some erosion of skin, and sloughing at the edge of the tracheostomy wagner, OptiFoam serves as a barrier for cushion to avoid further damage of the skin. Site was cleansed with normal saline and OptiFoam was placed. - Change optifoam daily. Gout, possible flare up - Left hand, index finger erythema noted - Colchicine 1.2mg x 1 dose given, then 0.6 mg after 1 hour then, 0.6 mg daily x 7 days - Improve ROM Full code. Has IVC filter. Pharmacological prophylaxis is on hold due to retroperitoneal hematoma. Discharge Planning Plan is to wean off trach, increase physical activity and DC home with [facility]. Problem Qualifiers (1) Hyperlipidemia: Qualified Codes: E78.5 - Hyperlipidemia, unspecified (2) HTN (hypertension): Qualified Codes: I10 - Essential (primary) hypertension (3) Diabetes mellitus with hyperglycemia: Qualified Codes: E11.65 - Type 2 diabetes mellitus with hyperglycemia (4) Diarrhea: Qualified Codes: A09 - Infectious gastroenteritis and colitis, unspecified (5) Abdominal pain: Qualified Codes: R10.84 - Generalized abdominal pain (6) Sepsis: Qualified Codes: A41.9 - Sepsis, unspecified organism Stacie Branch [facility] Apr 07, 2017 10:32
--- NOTE | 2017-04-07 14:47 | HHI.NPPN ---
Subjective History of Present Illness 61-year-old with history of urinary stone Additional Remarks Patient had trach on trach o2, not in distress. Review of Systems General Constitutional: Fatigue Objective Data Data 04/07/17 04/08/17 19:00 07:00 Output Total 700 ml Balance -700 ml Output Urine Total 700 ml Vital Signs Date Time Temp Pulse Resp B/P (MAP) Pulse Ox O2 Delivery O2 Flow Rate FiO2 04/07/17 13:47 18 04/07/17 12:00 97.3 94 17 112/68 (83) 99 04/07/17 10:45 100 Trach Collar 5.00 28 04/07/17 08:00 97.7 93 17 108/67 (81) 97 04/07/17 04:15 98.0 110 23 128/80 (96) 99 04/07/17 00:40 97.6 106 22 130/65 (86) 99 04/06/17 21:45 Trach Collar 28 04/06/17 20:50 98.1 101 21 132/69 (90) 99 04/06/17 16:45 90 04/06/17 16:40 98.6 84 18 132/64 (86) 98 -: 04/05/17 0802 04/07/17 0656 Physical Exam General Appearance: Pale Eyes Eye Exam: Pupils Equal Throat Throat Exam: Oral Mucosa [place] & Moist Neck Neck Exam: Neck Supple Pulmonary Resp Exam: Clear Bilaterally Cardiology CV Exam: Normal Sinus Rhythm Gastrointestinal/Abdomen GI Exam: Non-Tender, Distended Extremeties Extremities Exam: Moderate Edema, Pitting Edema Neurologic Neuro Exam: Awake Assessment/Plan Problem List: (1) Acute renal failure ICD Codes: N17.9 - Acute kidney failure, unspecified Status: Acute Plan: Patient developed Hypotension,sepsis staph aureus respiratory failure and increase WBC. Had aspiration pneumonia, developed sepsis with ARF again creatinine declined slightly post hydration he also had retroperitoneal bleed Pseudomonas in sputum, with colonized airway 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 Patient had been on dialysis earlier in hospitalization. Recently given Albumin followed By Lasix 40 mg IV q12, as retaining fluids UOP improved with Lasix; however, stopped albumin/Lasix was stopped with increased in creatinine. Creatinine gradually trending up - 2.0 today. 2.2L UOP/24 hours, off diuretics. Will give trial of IVFs - NS at 100cc/hour, closely monitor volume status. Also getting free water flushes 300 cc q 4 - will stop if further decrease in Na tomorrow. (2) CKD (chronic kidney disease) stage 3, GFR 30-59 ml/min ICD Codes: N18.3 - Chronic kidney disease, stage 3 (moderate) Status: Chronic Plan: Ultrasound revealed chronic kidney disease there is no kidney stones (3) Diabetes ICD Codes: E11.9 - Type 2 diabetes mellitus without complications Plan: Continue to monitor (4) Distal end of ulna fracture, closed ICD Codes: S52.609A - Unspecified fracture of lower end of unspecified ulna, initial encounter for closed fracture Status: Acute Plan: Orthopedic is following Problem Qualifiers (1) Acute renal failure: Qualified Codes: N17.9 - Acute kidney failure, unspecified Nabeel Singer MD Apr 07, 2017 14:47
[2017-04-07] MEDS: SODIUM CHLOR 0.9% 1000 ML INJ 1,000 ML IV SCH (15:56)
[2017-04-08] VITALS (8 sets, daily range): BP systolic 100–121; BP diastolic 58–66; PULSE 80–95; RESP 17–22; TEMP 97.5–98.8; O2SAT 96–99
[2017-04-08] MEDS: ATORVASTATIN 10 MG TAB PO SCH ×2 (00:01→20:36)
[2017-04-08] MEDS: TAMSULOSIN HCL 0.4 MG CAP PO SCH ×3 (00:01→20:34)
[2017-04-08] MEDS: CHLORHEXIDINE 0.12% (ORAL KIT) 15 ML CUP MT SCH ×3 (00:08→20:53)
[2017-04-08] MEDS: FREE WATER G-TUBE SCH ×8 (00:08→23:15)
[2017-04-08] MEDS: SODIUM CHLOR 0.9% 1000 ML INJ 1,000 ML IV SCH ×3 (01:00→23:15)
[2017-04-08] MEDS: oxyCODONE HCL ORAL CONC 5 MG/0.25 ML SYRINGE PO SCH ×6 (02:00→23:14)
[2017-04-08] MEDS: HYOSCYAMINE SOLN 0.125 MG/ML 15 ML BTL G-TUBE PRN ×3 (06:11→23:21)
--- NOTE | 2017-04-08 07:17 | PD.ORT.PN ---
Subjective Subjective Remarks in restraints and trached Objective Vitals Vital Signs Date Time Temp Pulse Resp B/P (MAP) Pulse Ox O2 Delivery O2 Flow Rate FiO2 04/07/17 19:50 98 Trach Collar 28 04/07/17 16:00 97.5 91 17 119/70 (86) 100 04/07/17 13:47 18 04/07/17 12:00 97.3 94 17 112/68 (83) 99 04/07/17 10:45 100 Trach Collar 5.00 28 04/07/17 09:40 Trach Collar 5.00 35 04/07/17 08:00 87 04/07/17 08:00 97.7 93 17 108/67 (81) 97 I/O 04/07/17 04/07/17 04/07/17 04/08/17 04/08/17 04/08/17 07:00 15:00 23:00 07:00 15:00 23:00 Intake Total 0 ml Output Total 800 ml 700 ml Balance -800 ml -700 ml Intake Oral 0 ml Output Urine Total 700 ml 700 ml Stool Total 100 ml Result Diagram: 04/05/17 0802 04/07/17 0656 Imaging Last 72 hours Impressions Wrist X-Ray 03/27/17 0000 Signed Impressions: Service Date/Time: Monday, March 27, 2017 13:21 - CONCLUSION: 1. No acute fracture is identified. A portion of the previously documented distal ulna fracture remains visualized. 2. 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 Angelo Allen MD Objective Remarks RUE: minimal pain to palpation of right wrist. He has significant degenerative changes due to gouty arthritis with contractures of wrist and fingers. good cap refills and intact sensation distally Assessment & Plan Assessment and Plan 1) Right Distal Ulna Fx - nonop x-rays look good with appropriate healing. no restrictions to right upper extremity - weight bearing as tolerated OT - AROM and PROM ortho signing off. reconsult if any complications Benjamin Parker Jr. Apr 08, 2017 07:17
[2017-04-08] MEDS: SODIUM CHLORIDE 0.9% FLUSH 10 ML FLUSH IV FLUSH SCH ×3 (09:00→20:32)
[2017-04-08 09:26] LABS: AUTOMATED NEUTROPHIL # 10.4 TH/MM3 (1.8-7.7); BASOPHIL # 0.1 TH/MM3 (0-0.2); BASOPHIL % 0.6 % (0.0-2.0); EOSINOPHIL # 0.4 TH/MM3 (0-0.4); EOSINOPHIL % 2.9 % (0.0-4.0); HEMATOCRIT 24.5 % (39.0-51.0); LYMPH % 5.3 % (9.0-44.0); LYMPHOCYTE # 0.6 TH/MM3 (1.0-4.8); MEAN CORPUSCULAR HEMOGLOBIN 27.9 PG (27.0-34.0); MONO % 6.3 % (0.0-8.0); NEUT % 84.9 % (16.0-70.0); PLATELET COUNT 256 TH/MM3 (150-450); RED BLOOD COUNT 2.82 MIL/MM3 (4.50-5.90); RED CELL DISTRIBUTION WIDTH 15.8 % (11.6-17.2); WHITE BLOOD COUNT 12.2 TH/MM3 (4.0-11.0)
[2017-04-08 09:30] LABS: HEMO FLAGS AUTO DIFF
[2017-04-08 09:49] LABS: ALT (GPT) 29 U/L (12-78); ANION GAP 9 MEQ/L (5-15); AST (GOT) 38 U/L (15-37); BICARBONATE 25.8 MEQ/L (21.0-32.0); BLOOD UREA NITROGEN 110 MG/DL (7-18); CHLORIDE 101 MEQ/L (98-107); GLOMERULAR FILTRATION RATE 37 ML/MIN (>89); MAGNESIUM 1.7 MG/DL (1.5-2.5); POTASSIUM 3.5 MEQ/L (3.5-5.1); SODIUM (NA) 136 MEQ/L (136-145)
[2017-04-08 09:52] LABS: ALKALINE PHOSPHATASE 139 U/L (45-117); TOTAL BILIRUBIN ADULT 0.6 MG/DL (0.2-1.0)
[2017-04-08] MEDS: INSULIN DETEMIR 100 UNITS/ML VIAL SQ SCH ×2 (10:13→23:14)
[2017-04-08] MEDS: ATENOLOL 25 MG TAB PO SCH ×2 (10:14→20:33)
[2017-04-08] MEDS: POTASSIUM CHLORIDE 25 MEQ EFFERVESCENT TAB PO SCH ×3 (10:14→20:32)
[2017-04-08] MEDS: COLCHICINE 0.6 MG TAB PO SCH (10:14)
[2017-04-08] MEDS: LACTOBACILLUS ACIDOPHILUS TAB PO SCH ×3 (10:14→18:33)
[2017-04-08] MEDS: HYDROCORTISONE SOD SUCCINATE 100 MG VIAL IV PUSH SCH ×3 (10:15→20:32)
[2017-04-08] MEDS: INSULIN ASPART 1,000 UNITS/10 ML VIAL SQ SCH ×3 (10:15→17:00)
[2017-04-08] MEDS: INSULIN ASPART SUPPLEMENTAL SCALE SQ SCH ×4 (10:15→20:53)
[2017-04-08] MEDS: LANSOPRAZOLE SOLUTAB 30 MG TAB NG SCH ×3 (10:16→20:34)
[2017-04-08 10:26] LABS: SCAN/DIFF AUTO DIFF CONFIRMED
--- NOTE | 2017-04-08 10:38 | HHI.PR ---
Subjective Remarks Follow-up visit metabolic encephalopathy, transverse myelitis, acute respiratory failure status post tracheostomy. Patient seen and examined today. Awake and Alert. Asking to get up and OOB. Patient has dignashield was leaking, stool is becoming soft and not liquid. Patient denies SOB/ Dyspnea. Continues to be on trach collar. Secretions are improving. No acute issues overnight. Objective Vitals Vital Signs Date Time Temp Pulse Resp B/P (MAP) Pulse Ox O2 Delivery O2 Flow Rate FiO2 04/08/17 09:31 99 Trach Collar 5.00 28 04/08/17 08:00 97.6 91 17 105/65 (78) 99 04/08/17 04:45 97.7 88 22 110/65 (80) 98 04/08/17 00:00 98.7 88 22 109/63 (78) 99 04/07/17 22:45 Trach Collar 5.00 28 04/07/17 22:15 79 04/07/17 21:00 98.8 98 23 138/68 (91) 98 04/07/17 19:50 98 Trach Collar 28 04/07/17 16:00 97.5 91 17 119/70 (86) 100 04/07/17 13:47 18 04/07/17 12:00 97.3 94 17 112/68 (83) 99 04/07/17 10:45 100 Trach Collar 5.00 28 I/O 04/07/17 04/07/17 04/07/17 04/08/17 04/08/17 04/08/17 07:00 15:00 23:00 07:00 15:00 23:00 Intake Total 0 ml 0 ml 1200 ml Output Total 800 ml 700 ml 900 ml 800 ml Balance -800 ml -700 ml -900 ml 400 ml Intake Oral 0 ml 0 ml 0 ml IV Total 1200 ml Output Urine Total 700 ml 700 ml 800 ml 800 ml Stool Total 100 ml 100 ml 0 ml Result Diagram: 04/08/1742 04/08/1742 Imaging Last Impressions Chest X-Ray 04/06/17 0000 Signed Impressions: Service Date/Time: Thursday, April 06, 2017 14:50 - CONCLUSION: Left pleural effusion and basilar density. Armando Dodd MD Renal Ultrasound 04/02/17 0000 Signed Impressions: Service Date/Time: Sunday, April 02, 2017 16:59 - CONCLUSION: Limited exam with the left kidney being unable to be evaluated in the bladder not distended. There do appear to be multiple shadowing stones at the right kidney without hydronephrosis. Angelo Manzo MD Wrist X-Ray 03/27/17 0000 Signed Impressions: Service Date/Time: Monday, March 27, 2017 13:21 - CONCLUSION: 1. No acute fracture is identified. A portion of the previously documented distal ulna fracture remains visualized. 2. 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 Angelo lAlen MD Aortography 02/28/17 0000 Signed Impressions: Service Date/Time: Tuesday, February 28, 2017 08:01 - CONCLUSION: 1. Active hemorrhage from distal right lateral sacral and iliolumbar branches successfully coil and Gelfoam embolized, as above. Juan Bhakta MD Abdomen/Pelvis CT 02/28/17 0000 Signed Impressions: Service Date/Time: Tuesday, February 28, 2017 06:51 - CONCLUSION: 1. The right retroperitoneal hematoma has increased in size, as above. There are 2 serpiginous arterially enhancing structures visualized, one in the right psoas muscle and another extending into the hematoma at the right iliac fossa. These could represent sites of continued active bleeding. 2. Stable moderate size left and small right pleural effusion with associated compressive atelectasis. 3. Stable small volume of free fluid in the abdomen and pelvis. There is also anasarca. The findings concerning the retroperitoneal hematoma were discussed with Dr. Agiuar via telephone at approximately 7: 10 AM on 02/28/2017. Angelo Allen MD Chest CT 02/27/17 0000 Signed Impressions: Service Date/Time: Monday, February 27, 2017 18:12 - CONCLUSION: 1. Bilateral pleural effusions with bibasilar atelectasis, left greater than right. Tom Sanchez MD Abdomen X-Ray 02/26/17 0000 Signed Impressions: Service Date/Time: Sunday, February 26, 2017 14:52 - CONCLUSION: 1. Nonobstructive bowel gas pattern. Juan Bhakta MD Upper Extremity Ultrasound 02/10/17 0000 Signed Impressions: Service Date/Time: Friday, February 10, 2017 18:46 - CONCLUSION: Occlusive thrombus in the cephalic and basilic veins. Benjamin Person MD Lung Scan-V Nuclear Medicine 02/10/17 0000 Signed Impressions: Service Date/Time: Friday, February 10, 2017 22:17 - CONCLUSION: Low probability pulmonary embolism. Candido Patton MD Head CT 02/10/17 0000 Signed Impressions: Service Date/Time: Friday, February 10, 2017 23:51 - CONCLUSION: Negative noncontrast CT brain. Candido Patton MD Lumbar Puncture Fluoroscopy 02/01/17 0000 Signed Impressions: Service Date/Time: January 09:35 - CONCLUSION: Uncomplicated fluoroscopically guided lumbar puncture. CSF was clear. Nabeel Peralta MD Head Magnetic Resonance Angiography 01/27/17 0000 Signed Impressions: Service Date/Time: Friday, January 27, 2017 10:33 - CONCLUSION: No intracranial vascular abnormality is identified. There is no aneurysm visualized. Angelo Allen MD IVC Filter Placement X-Ray 01/25/17 0000 Signed Impressions: Service Date/Time: January 10:29 - CONCLUSION: Uncomplicated inferior vena cava filter placement as above. Yung Fowler MD Thoracic Spine MRI 01/24/17 0000 Signed Impressions: Service Date/Time: Tuesday, January 24, 2017 22:29 - CONCLUSION: 1. Mild degenerative spondylosis most prominently at T11-L1 with slight effacement of the anterior thecal sac and left lateral recess. No significant neural foraminal stenosis. 2. No acute fracture. Juan Bhakta MD Lumbar Spine MRI 01/23/17 0000 Signed Impressions: Service Date/Time: Monday, January 23, 2017 17:01 - CONCLUSION: 1. At L4-5 is a broad-based disc protrusion with severe central canal and lateral recess stenosis and flattening of the exiting right L4 nerve root. 2. L5-S1 there is a disc protrusion and moderate stenosis with flattening of the exiting L5 nerve roots bilaterally. 3. At L3-4 there is a moderate to severe central stenosis and lateral recess stenosis with mild foraminal stenosis. 4. No acute fracture or spondylolisthesis. Trace Hollowya MD Lower Extremity Ultrasound 01/23/17 Signed Impressions: Service Date/Time: Monday, January 23, 2017 09:53 - CONCLUSION: Bilateral focal lower extremity DVT involving the posterior tibial veins. Angelo Garrido MD Cervical Spine MRI 01/23/17 Signed Impressions: Service Date/Time: Monday, January 23, 2017 17:01 - CONCLUSION: 1. Multilevel cervical spine degenerative changes as above. 2. Mild degrees of spinal stenosis at C3/C4-C6/C7. No cord compression or cord signal abnormality. 3. Age indeterminate left paracentral/foraminal disc protrusion at C6/C7. 4. Multilevel foraminal stenosis, most severe on the left at C6/C7. Please see individual levels above. 5. No fracture or subluxation of the cervical spine. Angelo Garrido MD Brain MRI 01/23/17 Signed Impressions: Service Date/Time: Monday, January 23, 2017 17:01 - CONCLUSION: 1. No acute stroke or other acute intracranial abnormality demonstrated. 2. Moderate severity chronic white matter changes, nonspecific but most likely related to chronic small vessel disease. 3. Few scattered tiny lacunar infarcts of the brainstem. 4. Given the findings are not entirely specific, clinical evaluation for possible multiple sclerosis recommended. Angelo Garrido MD Knee X-Ray 01/22/172053 Signed Impressions: Service Date/Time: Sunday, January 22, 2017 21:17 - CONCLUSION: 1. Evidence of moderate to large joint effusion. 2. No acute fracture or malalignment. 3. Mild 3 compartment osteoarthritic change. Benjamin Person MD Hip and Pelvis X-Ray 01/22/172053 Signed Impressions: Service Date/Time: Sunday, January 22, 2017 21:10 - CONCLUSION: 1. Mild to moderate degenerative change of both hips with no acute fracture or malalignment. There is flattening and remodeling of the right humeral head. Benjamin Person MD Objective Remarks GENERAL: This is a well-nourished, well-developed patient, in no apparent distress. SKIN: Warm and dry. HEENT: Normocephalic. Pupils equal round and reactive. Nose without bleeding. Airway patent. NECK: Tracheostomy site capped. Optifoam under tracheostomy site wagner, skin sloughing possibly pressure related as patient has short neck. CARDIOVASCULAR: Regular rate and rhythm without murmurs, gallops, or rubs. RESPIRATORY: Diminished bases. No wheezes, rales, or rhonchi. 2L nc. O2 sat 100 % GASTROINTESTINAL: Abdomen soft, non-tender, nondistended. Bowel Sounds active x4. Fecal incontinence bag in place draining brown stool. MUSCULOSKELETAL: Extremities without clubbing, cyanosis. Extremities with trace edema. Notable tophi on small joints fingers and toes. Left arm edema/ slight erythema. NEUROLOGICAL: Awake and alert. Oriented to person. No focal neuro deficit. Moves all extremities weakly. Normal speech, minimal verbalization. Procedures IVC filter placement 01/25/2017 LP 01/26/2017 Date of Insertion: Mar 03, 2017 Line: Central Venous Catheter Side: Right Location: Internal, Jugular A/P Problem List: (1) Transverse myelitis ICD Code: G37.3 - Acute transverse myelitis in demyelinating disease of central nervous system Status: Acute (2) Septic shock ICD Code: A41.9 - Sepsis, unspecified organism; R65.21 - Severe sepsis with septic shock Status: Resolved (3) HCAP (healthcare-associated pneumonia) ICD Code: J18.9 - Pneumonia, unspecified organism (4) Acute respiratory failure with hypoxia and hypercarbia ICD Code: J96.01 - Acute respiratory failure with hypoxia; J96.02 - Acute respiratory failure with hypercapnia Status: Resolved (5) Hyperlipidemia ICD Code: E78.5 - Hyperlipidemia, unspecified Status: Chronic (6) HTN (hypertension) ICD Code: I10 - Essential (primary) hypertension (7) DVT of lower extremity, bilateral ICD Code: I82.403 - Acute embolism and thrombosis of unspecified deep veins of lower extremity, bilateral (8) Diabetes mellitus with hyperglycemia ICD Code: E11.65 - Type 2 diabetes mellitus with hyperglycemia (9) Hypocalcemia ICD Code: E83.51 - Hypocalcemia (10) Hypernatremia ICD Code: E87.0 - Hyperosmolality and hypernatremia (11) Hypokalemia ICD Code: E87.6 - Hypokalemia (12) Acute metabolic encephalopathy ICD Code: G93.41 - Metabolic encephalopathy (13) Quadriparesis ICD Code: G82.50 - Quadriplegia, unspecified Status: Acute (14) BREEZY (acute kidney injury) ICD Code: N17.9 - Acute kidney failure, unspecified (15) Diarrhea ICD Code: R19.7 - Diarrhea, unspecified (16) Abdominal pain ICD Code: R10.9 - Unspecified abdominal pain (17) Hypoglycemia ICD Code: E16.2 - Hypoglycemia, unspecified (18) Urinary retention ICD Code: R33.9 - Retention of urine, unspecified (19) Acute hypoxemic respiratory failure ICD Code: J96.01 - Acute respiratory failure with hypoxia (20) Sepsis ICD Code: A41.9 - Sepsis, unspecified organism Assessment and Plan Patient is a 62-year-old male with primary medical history of HTN, gout who came into the hospital for bilateral knee pain after a mechanical fall. Patient was found to have oblique fracture through distal right ulna. He was seen by orthopedic MD and recommended non operative treatment. Patient has been experiencing gradual lower extremity weakness and upper extremity weakness. Suspected Transverse Myelitis Acute metabolic encephalopathy - persistent - Recurrent falls and Quadriparesis secondary to suspected transverse myelitis - MRI revealed no acute stroke. He had multifocal white matter changes. Tiny lacunar infarcts of the brainstem. - Lumbar MRI report states L4-L5 disc protrusion with central canal stenosis - Patient was treated in critical care unit and received methylprednisolone 250 mg IV every 6 hours 01/27-02/02, started back on hydrocortisone 02/21/17, initially tapering to 50 mg IV every 8 hours starting 02/26 received 1 dose at 2100 prior to becoming hypotensive. Weaning hydrocortisone taper and stopped . Resumed hydrocortisone 50mg IV Q6hrly on 03/14 as patient became hypotensive following intubation on 03/13 requiring levophed. - LP 01/26 and 02/01. CSF culture negative 01/26, 02/01 Oligoclonal bands negative. CSF/serum IgG index is not elevated. VDRL nonreactive. Cryptococcal antigen negative. - Brain MRI cervical/thoracic spine with mild spinal stenosis C3/C4 to C6/ C7. No cord compression. RPR negative. - Neurology has been following, Dr. Crenshaw. Repeat CT brain 02/10 - negative. - Neurosurgery has been following, Dr. Blackwell, no cord compression recommends non operative treatment - Continue PT/OT. OOB to chair daily x 7days. - Continue pain control with a bowel regimen. Acute hypoxemic respiratory failure Healthcare associated pneumonia/Aspiration Pneumonia S/P Tracheostomy placement - He was treated in critical care with Right-sided chest tube placed for pleural effusion. Orally intubated. Extubated 02/23. Reintubated 02/28. Extubated 03/11. Reintubated on 03/13. 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 Failed attempt to wean successfully due to volume overload and multiple organ failure. Underwent perc tracheostomy 03/14. - He was in severe sepsis that has resolved. - VQ scan 02/[address] PE[address] CT chest 02/10 - left lower lobe collapse and consolidation. - CT chest 02/27 revealed right greater than left pleural effusions. - Pulmonology following for [facility], downsized trach. [facility] #6 - Albuterol/ipratropium aerosols every 4 hours with albuterol aerosols every 2 hours PRN. - Did not tolerate capping. On trach collar now. Secretions thick and moderate amount. - Started on Levsin. CXR repeat showed pleural effusion and basilar density - Patient afebrile. Systolic heart failure likely chronic with ejection fraction 20-25% Hyperlipidemia, History of hypertension Elevated troponin likely type II demand ischemia, tachycardia - In critical care unit he was on pressors. Levophed on 03/09 following intubation, titrated off after starting hydrocortisone. Started hydrocortisone stress dose on 03/14 (as patient has been on steroids and was just tapered off on 03/09.) Patient had been hypotensive twice when attempting to wean off stress dose hydrocortisone in the past. EKG with nonspecific ST-T changes. 2-D echocardiogram 01/11 revealed EF 20-25%. Mild TR. Pulmonary arterial pressures were normal around 20. Troponin 6.55 on 03/02. - Likely will need stress test of heart once stable. Cannot anticoagulate due to retroperitoneal hematoma at the present time. - Currently on atenolol 25 mg twice a day. Continue amlodipine 10 mg daily. - Atorvastatin 10 mg by mouth daily for dyslipidemia. - Lasix 40mg IV Q12hrs. - Monitor BP Trend Large right retroperitoneal hematoma Erosive esophagitis Adenomatous/hyperplastic colon polyps Severe acute protein calorie malnutrition Gastritis, Diverticulosis, Hiatal hernia Internal and external hemorrhoids Diarrhea Elevated lipase - 02/27 CT chest/abdomen and pelvis - 9.4 x 7.5 renal and 16 x 12 cm right psoas muscle hematoma. Fluid around liver and spleen. Right-sided nephrolithiasis. - CTA abdomen 02/28 - possible blushing around iliac/lumbar vessels. Discussed with IR. s/p attempted embolization. - CT abdomen and pelvis 02/10 atrophic left kidney. Bilateral inguinal hernias fat-containing. Nonobstructing 12 mm right kidney stone. Repeat CT abd/ pelvis did not show evidence of obstruction. - EGD/Colonoscopy-02/22/17 showed gastritis esophagitis, hiatal hernia, diverticulosis and multiple polyps in descending colon and sigmoid which were snared biopsied. Biopsy pending. Dr. Lewis consulted for intervention if needed for elevated IAP. - PEG tube placement by . - Lansoprazole 30 mg twice a day for GI prophylaxis. - Tube feeding Nephro goal 55 - Fecal rectal collection for diarrhea. Lactinex TID. - Negative Cdiff. Start Questran. Acute kidney injury in the setting of Chronic kidney disease stage 3-4 History of uric acid kidney stones with prior stent BPH Nonfunctioning left kidney - Sloan placed due to urinary retention and worsening creatinine. Maintain Sloan secondary to urinary retention - RIOS/SPEP negative. - Urology has followed for uric acid nephrolithiasis. Recommended nephrostomy tube if obstruction. Nephrology consulted, hemodialysis per nephrology. Making urine. Due to acute illness holding tamsulosin 0.4 mg by mouth daily for BPH. - Decreased urine output, creatinine increased 04/02 to 1.67. Per nephrology , patient is on Albumin and Lasix IV. Recommends to continue with diureses Septic shock- resolved. Abscess and Suppurative thrombophlebitis left upper extremity MSSA bacteremia Klebsiella UTI ESBL positive Acute aspiration pneumonia/HCAP - Previously treated with Bactrim, ertapenem, intermittent vancomycin, nafcillin. Blood cultures 2, UA ESBL positive Klebsiella UTI. - Repeat blood cultures 2 negative and sputum 03/08 Stenotrophomonas Maltophiloa, Klebsiella Pneumoniae - Sputum 03/14 - Pseudomonas came back resistant to imipenem. - Sputum Culture Repeat 04/01/17 - Pseudomonas Aeroginosa. - ID following. Recommends Tobramycin Nebs x7 days. Signed off to reconsult PRN. Acute blood loss anemia DVT, bilateral posterior tibial vein, IVC filter Septic thrombophlebitis with occlusive thrombus mid cephalic and basilic vein side - Patient has received total of 23 PRBC, 10 FFP, 3 platelets, 1 cryo-02/28. - Ultrasound 01/23/17 - Bilateral lower extremity with occlusive posterior tibial vein DVTs. Heparin was initially started for DVT but was placed on hold due to LP with suspected traumatic tap. IVC filter was placed 01/25/17. Ultrasound LUE 02/10 occlusive thrombus mid cephalic vein, basilic veins. - Trend CBC. Stable. Diabetes mellitus History of prior adrenal insufficiency with shock - EGD colonoscopy completed 02/22. Gastritis and esophagitis, colon polyps. Started Hydrocortisone 100 mg every 8 hours 02/21/17 (Recent high dose steroids use now hypotensive, hypoglycemic), steroids had been tapered off. Resumed stress dose steroids on 03/16 as patient back on Levophed for pressor support after intubation. - Hydrocortisone 12.5mg BID - Levemir 10 units BID. Prandial insulin Aspart 5units TIDAC - Continue sliding scale insulin.. Right distal ulna fracture. - Dr. Nathan with orthopedics has evaluated and recommended nonoperative management. - Right wrist WBS as per ortho recommendation Pressure wound tracheostomy wagner site. - Patient was seen with OptiFoam under tracheostomy wagner. Patient has some erosion of skin, and sloughing at the edge of the tracheostomy wagner, OptiFoam serves as a barrier for cushion to avoid further damage of the skin. Site was cleansed with normal saline and OptiFoam was placed. - Change optifoam daily. Gout, possible flare up - Left hand, index finger erythema noted - Colchicine 1.2mg x 1 dose given, then 0.6 mg after 1 hour then, 0.6 mg daily x 7 days - Improve ROM Sacral unstageable wound - May need surgical debridement. - Consult general surgery Full code. Has IVC filter. Pharmacological prophylaxis is on hold due to retroperitoneal hematoma. Discharge Planning Plan is to wean off trach, increase physical activity and DC home with [facility]. Problem Qualifiers (1) Hyperlipidemia: Qualified Codes: E78.5 - Hyperlipidemia, unspecified (2) HTN (hypertension): Qualified Codes: I10 - Essential (primary) hypertension (3) Diabetes mellitus with hyperglycemia: Qualified Codes: E11.65 - Type 2 diabetes mellitus with hyperglycemia (4) Diarrhea: Qualified Codes: A09 - Infectious gastroenteritis and colitis, unspecified (5) Abdominal pain: Qualified Codes: R10.84 - Generalized abdominal pain (6) Sepsis: Qualified Codes: A41.9 - Sepsis, unspecified organism Nudalo-Haniganti,Iszenn [facility] Apr 08, 2017 10:38
[2017-04-08] MEDS ORDERED: QUEtiapine FUMARATE 25 MG TAB PO ONE (13:15)
--- NOTE | 2017-04-08 14:39 | HHI.NPPN ---
Subjective History of Present Illness 61-year-old with history of urinary stone Additional Remarks Patient had trach on trach o2, not in distress. Review of Systems General Constitutional: Fatigue Objective Data Data Vital Signs Date Time Temp Pulse Resp B/P (MAP) Pulse Ox O2 Delivery O2 Flow Rate FiO2 04/08/17 09:31 99 Trach Collar 5.00 28 04/08/17 08:00 97.6 91 17 105/65 (78) 99 04/08/17 04:45 97.7 88 22 110/65 (80) 98 04/08/17 00:00 98.7 88 22 109/63 (78) 99 04/07/17 22:45 Trach Collar 5.00 28 04/07/17 22:15 79 04/07/17 21:00 98.8 98 23 138/68 (91) 98 04/07/17 19:50 98 Trach Collar 28 04/07/17 16:00 97.5 91 17 119/70 (86) 100 -: 04/08/17 0842 04/08/17 0842 Physical Exam General Appearance: Pale Eyes Eye Exam: Pupils Equal Throat Throat Exam: Oral Mucosa Stedman & Moist Neck Neck Exam: Neck Supple Pulmonary Resp Exam: Clear Bilaterally Cardiology CV Exam: Normal Sinus Rhythm Gastrointestinal/Abdomen GI Exam: Non-Tender, Distended Extremeties Extremities Exam: Moderate Edema, Pitting Edema Neurologic Neuro Exam: Awake Assessment/Plan Problem List: (1) Acute renal failure ICD Codes: N17.9 - Acute kidney failure, unspecified Status: Acute Plan: Patient developed Hypotension,sepsis staph aureus respiratory failure and increase WBC. Had aspiration pneumonia, developed sepsis with ARF again creatinine declined slightly post hydration he also had retroperitoneal bleed Pseudomonas in sputum, with colonized airway 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 Patient had been on dialysis earlier in hospitalization. Recently given Albumin followed By Lasix 40 mg IV q12, as retaining fluids UOP improved with Lasix; however, stopped albumin/Lasix with increased in creatinine. Intitiated trial of IVFs yesterday - NS at 100cc/hour, Creatinine 2.0 -> 1.8. Continue IVFs, closely monitor volume status. On free water flushes 300 cc q 4: Na 134 ->1.36 Stop free water tomorrow if further increase in sodium. (2) CKD (chronic kidney disease) stage 3, GFR 30-59 ml/min ICD Codes: N18.3 - Chronic kidney disease, stage 3 (moderate) Status: Chronic Plan: Ultrasound revealed chronic kidney disease there is no kidney stones (3) Diabetes ICD Codes: E11.9 - Type 2 diabetes mellitus without complications Plan: Continue to monitor (4) Distal end of ulna fracture, closed ICD Codes: S52.609A - Unspecified fracture of lower end of unspecified ulna, initial encounter for closed fracture Status: Acute Plan: Orthopedic is following Problem Qualifiers (1) Acute renal failure: Qualified Codes: N17.9 - Acute kidney failure, unspecified Nabeel Singer MD Apr 08, 2017 14:39
[2017-04-08] MEDS: CHOLESTYRAMINE 4 GM PACKET G-TUBE SCH (20:36)
[2017-04-09] VITALS (8 sets, daily range): BP systolic 124–167; BP diastolic 59–83; PULSE 88–100; RESP 20–22; TEMP 97.6–99.2; O2SAT 96–100
[2017-04-09] MEDS: ALPRAZolam 0.25 MG TAB PO PRN ×2 (00:31→21:22)
[2017-04-09] MEDS: oxyCODONE HCL ORAL CONC 5 MG/0.25 ML SYRINGE PO SCH ×6 (04:01→21:19)
[2017-04-09] MEDS: FREE WATER G-TUBE SCH ×5 (04:02→21:03)
[2017-04-09] MEDS: SODIUM CHLOR 0.9% 1000 ML INJ 1,000 ML IV SCH (07:00)
[2017-04-09] MEDS: INSULIN ASPART SUPPLEMENTAL SCALE SQ SCH ×4 (08:00→21:00)
--- NOTE | 2017-04-09 08:07 | HHI.PR ---
Subjective Remarks Follow-up visit metabolic encephalopathy, transverse myelitis, acute respiratory failure status post tracheostomy. Patient seen and examined today. Awake and alert. Pt. requesting "let me get out of here, help me get up." Confuse but able to follow some commands. Complaint of pain states "all over" unable to describe. Objective Vitals Vital Signs Date Time Temp Pulse Resp B/P (MAP) Pulse Ox O2 Delivery O2 Flow Rate FiO2 04/09/17 06:30 99.0 90 21 130/59 (82) 99 04/09/17 00:45 97.6 89 20 125/60 (81) 98 04/08/17 20:50 98.8 80 20 121/66 (84) 98 04/08/17 20:25 97 Nasal Cannula 2.00 04/08/17 16:00 98.6 95 17 100/63 (75) 96 04/08/17 12:40 Nasal Cannula 2.00 04/08/17 12:00 97.5 93 20 103/58 (73) 99 04/08/17 11:15 19 04/08/17 10:15 Trach Collar 5.00 35 04/08/17 09:31 99 Trach Collar 5.00 28 I/O 04/08/17 04/08/17 04/08/17 04/09/17 04/09/17 04/09/17 07:00 15:00 23:00 07:00 15:00 23:00 Intake Total 1200 ml 0 ml 0 ml Output Total 800 ml 650 ml 300 ml Balance 400 ml -650 ml -300 ml 0 ml Intake Oral 0 ml 0 ml 0 ml IV Total 1200 ml Output Urine Total 800 ml 650 ml 300 ml Stool Total 0 ml 0 ml # Bowel Movements 0 Result Diagram: 04/08/1742 04/08/1742 Objective Remarks GENERAL: This is a well-nourished, well-developed patient, in no apparent distress. SKIN: Warm and dry. HEENT: Normocephalic. Pupils equal round and reactive. Nose without bleeding. Airway patent. NECK: Tracheostomy site capped. Optifoam under tracheostomy site wagner, skin sloughing possibly pressure related as patient has short neck. CARDIOVASCULAR: Regular rate and rhythm without murmurs, gallops, or rubs. RESPIRATORY: Diminished bases. No wheezes, rales, or rhonchi. 2L nc. O2 sat 100 % GASTROINTESTINAL: Abdomen soft, non-tender, nondistended. Bowel Sounds active x4. Fecal incontinence bag in place draining brown stool. MUSCULOSKELETAL: Extremities without clubbing, cyanosis. Extremities with trace edema. Notable tophi on small joints fingers and toes. Left arm edema/ slight erythema. NEUROLOGICAL: Awake and alert. Oriented to person. No focal neuro deficit. Moves all extremities weakly. Normal speech, minimal verbalization. Procedures IVC filter placement 01/25/2017 LP 01/26/2017 Date of Insertion: Mar 03, 2017 Line: Central Venous Catheter Side: Right Location: Internal, Jugular A/P Problem List: (1) Transverse myelitis ICD Code: G37.3 - Acute transverse myelitis in demyelinating disease of central nervous system Status: Acute (2) Septic shock ICD Code: A41.9 - Sepsis, unspecified organism; R65.21 - Severe sepsis with septic shock Status: Resolved (3) HCAP (healthcare-associated pneumonia) ICD Code: J18.9 - Pneumonia, unspecified organism (4) Acute respiratory failure with hypoxia and hypercarbia ICD Code: J96.01 - Acute respiratory failure with hypoxia; J96.02 - Acute respiratory failure with hypercapnia Status: Resolved (5) Hyperlipidemia ICD Code: E78.5 - Hyperlipidemia, unspecified Status: Chronic (6) HTN (hypertension) ICD Code: I10 - Essential (primary) hypertension (7) DVT of lower extremity, bilateral ICD Code: I82.403 - Acute embolism and thrombosis of unspecified deep veins of lower extremity, bilateral (8) Diabetes mellitus with hyperglycemia ICD Code: E11.65 - Type 2 diabetes mellitus with hyperglycemia (9) Hypocalcemia ICD Code: E83.51 - Hypocalcemia (10) Hypernatremia ICD Code: E87.0 - Hyperosmolality and hypernatremia (11) Hypokalemia ICD Code: E87.6 - Hypokalemia (12) Acute metabolic encephalopathy ICD Code: G93.41 - Metabolic encephalopathy (13) Quadriparesis ICD Code: G82.50 - Quadriplegia, unspecified Status: Acute (14) BREEZY (acute kidney injury) ICD Code: N17.9 - Acute kidney failure, unspecified (15) Diarrhea ICD Code: R19.7 - Diarrhea, unspecified (16) Abdominal pain ICD Code: R10.9 - Unspecified abdominal pain (17) Hypoglycemia ICD Code: E16.2 - Hypoglycemia, unspecified (18) Urinary retention ICD Code: R33.9 - Retention of urine, unspecified (19) Acute hypoxemic respiratory failure ICD Code: J96.01 - Acute respiratory failure with hypoxia (20) Sepsis ICD Code: A41.9 - Sepsis, unspecified organism Assessment and Plan Patient is a 62-year-old male with primary medical history of HTN, gout who came into the hospital for bilateral knee pain after a mechanical fall. Patient was found to have oblique fracture through distal right ulna. He was seen by orthopedic MD and recommended non operative treatment. Patient has been experiencing gradual lower extremity weakness and upper extremity weakness. Suspected Transverse Myelitis Acute metabolic encephalopathy - persistent - Recurrent falls and Quadriparesis secondary to suspected transverse myelitis - MRI revealed no acute stroke. He had multifocal white matter changes. Tiny lacunar infarcts of the brainstem. - Lumbar MRI report states L4-L5 disc protrusion with central canal stenosis - Patient was treated in critical care unit and received methylprednisolone 250 mg IV every 6 hours 01/27-02/02, started back on hydrocortisone 02/21/17, initially tapering to 50 mg IV every 8 hours starting 02/26 received 1 dose at 2100 prior to becoming hypotensive. Weaning hydrocortisone taper and stopped . Resumed hydrocortisone 50mg IV Q6hrly on 03/14 as patient became hypotensive following intubation on 03/13 requiring levophed. - LP 01/26 and 02/01. CSF culture negative 01/26, 02/01 Oligoclonal bands negative. CSF/serum IgG index is not elevated. VDRL nonreactive. Cryptococcal antigen negative. - Brain MRI cervical/thoracic spine with mild spinal stenosis C3/C4 to C6/ C7. No cord compression. RPR negative. - Neurology has been following, Dr. Crenshaw. Repeat CT brain 02/10 - negative. - Neurosurgery has been following, Dr. Blackwell, no cord compression recommends non operative treatment - Continue PT/OT. OOB to chair daily x 7days. - Continue pain control with bowel regimen. Acute hypoxemic respiratory failure Healthcare associated pneumonia/Aspiration Pneumonia S/P Tracheostomy placement - He was treated in critical care with Right-sided chest tube placed for pleural effusion. Orally intubated. Extubated 02/23. Reintubated 02/28. Extubated 03/11. Reintubated on 03/13. Right-sided chest tube placement 02/28 inventory specialist, removed 03/05. Failed attempt to wean successfully due to volume overload and multiple organ failure. Underwent perc tracheostomy 03/14. - He was in severe sepsis that has resolved. - VQ scan 02/[address] PE[address] CT chest 02/10 - left lower lobe collapse and consolidation. - CT chest 02/27 revealed right greater than left pleural effusions. - Pulmonology following for [facility] care, downsized trach. Michelleley #6 - Albuterol/ipratropium aerosols every 4 hours with albuterol aerosols every 2 hours PRN. - Did not tolerate capping. On trach collar now. Secretions thick and moderate amount. - Started on Levsin. CXR repeat showed pleural effusion and basilar density - Patient afebrile. Systolic heart failure likely chronic with ejection fraction 20-25% Hyperlipidemia, History of hypertension Elevated troponin likely type II demand ischemia, tachycardia - In critical care unit he was on pressors. Levophed on 03/09 following intubation, titrated off after starting hydrocortisone. Started hydrocortisone stress dose on 03/14 (as patient has been on steroids and was just tapered off on 03/09.) Patient had been hypotensive twice when attempting to wean off stress dose hydrocortisone in the past. EKG with nonspecific ST-T changes. 2-D echocardiogram 01/11 revealed EF 20-25%. Mild TR. Pulmonary arterial pressures were normal around 20. Troponin 6.55 on 03/02. - Likely will need stress test of heart once stable. Cannot anticoagulate due to retroperitoneal hematoma at the present time. - Currently on atenolol 25 mg twice a day. Continue amlodipine 10 mg daily. - Atorvastatin 10 mg by mouth daily for dyslipidemia. - Lasix 40mg IV Q12hrs, DC by Nephro and patient was started on IVF - Monitor BP Trend Large right retroperitoneal hematoma Erosive esophagitis Adenomatous/hyperplastic colon polyps Severe acute protein calorie malnutrition Gastritis, Diverticulosis, Hiatal hernia Internal and external hemorrhoids Diarrhea Elevated lipase - 02/27 CT chest/abdomen and pelvis - 9.4 x 7.5 renal and 16 x 12 cm right psoas muscle hematoma. Fluid around liver and spleen. Right-sided nephrolithiasis. - CTA abdomen 02/28 - possible blushing around iliac/lumbar vessels. Discussed with IR. s/p attempted embolization. - CT abdomen and pelvis 02/10 atrophic left kidney. Bilateral inguinal hernias fat-containing. Nonobstructing 12 mm right kidney stone. Repeat CT abd/ pelvis did not show evidence of obstruction. - EGD/Colonoscopy-02/22/17 showed gastritis esophagitis, hiatal hernia, diverticulosis and multiple polyps in descending colon and sigmoid which were snared biopsied. Biopsy pending. Dr. Lewis consulted for intervention if needed for elevated IAP. - PEG tube placement by . - Lansoprazole 30 mg twice a day for GI prophylaxis. - Tube feeding Nephro goal 55 - Fecal rectal collection for diarrhea. Lactinex TID. - Negative Cdiff. Start Questran. Acute kidney injury in the setting of Chronic kidney disease stage 3-4 History of uric acid kidney stones with prior stent BPH Nonfunctioning left kidney - Sloan placed due to urinary retention and worsening creatinine. Maintain Sloan secondary to urinary retention - RIOS/SPEP negative. - Urology has followed for uric acid nephrolithiasis. Recommended nephrostomy tube if obstruction. Nephrology consulted, hemodialysis per nephrology. Making urine. Due to acute illness holding tamsulosin 0.4 mg by mouth daily for BPH. - Decreased urine output, creatinine increased 04/02 to 1.67. Per nephrology , patient is on Albumin and Lasix IV. Recommends to continue with diureses before but renal indices went up, DC lasix and IVF was started by Dr. Singer. Will consider decreasing fluids as patient is now edematous, HX CHF with low EF. Septic shock- resolved. Abscess and Suppurative thrombophlebitis left upper extremity MSSA bacteremia Klebsiella UTI ESBL positive Acute aspiration pneumonia/HCAP - Previously treated with Bactrim, ertapenem, intermittent vancomycin, nafcillin. Blood cultures 2, UA ESBL positive Klebsiella UTI. - Repeat blood cultures 2 negative and sputum 03/08 Stenotrophomonas Maltophiloa, Klebsiella Pneumoniae - Sputum 03/14 - Pseudomonas came back resistant to imipenem. - Sputum Culture Repeat 04/01/17 - Pseudomonas Aeroginosa. - ID following. Recommends Tobramycin Nebs x7 days. Signed off to reconsult PRN. Acute blood loss anemia DVT, bilateral posterior tibial vein, IVC filter Septic thrombophlebitis with occlusive thrombus mid cephalic and basilic vein side - Patient has received total of 23 PRBC, 10 FFP, 3 platelets, 1 cryo-02/28. - Ultrasound 01/23/17 - Bilateral lower extremity with occlusive posterior tibial vein DVTs. Heparin was initially started for DVT but was placed on hold due to LP with suspected traumatic tap. IVC filter was placed 01/25/17. Ultrasound LUE 02/10 occlusive thrombus mid cephalic vein, basilic veins. - Trend CBC. Stable. Diabetes mellitus History of prior adrenal insufficiency with shock - EGD colonoscopy completed 02/22. Gastritis and esophagitis, colon polyps. Started Hydrocortisone 100 mg every 8 hours 02/21/17 (Recent high dose steroids use now hypotensive, hypoglycemic), steroids had been tapered off. Resumed stress dose steroids on 03/16 as patient back on Levophed for pressor support after intubation. - Hydrocortisone 12.5mg BID - Levemir 10 units BID. Prandial insulin Aspart 5units TIDAC - Continue sliding scale insulin.. Right distal ulna fracture. - Dr. Nathan with orthopedics has evaluated and recommended nonoperative management. - Right wrist WBS as per ortho recommendation Pressure wound tracheostomy wagner site. - Patient was seen with OptiFoam under tracheostomy wagner. Patient has some erosion of skin, and sloughing at the edge of the tracheostomy wagner, OptiFoam serves as a barrier for cushion to avoid further damage of the skin. Site was cleansed with normal saline and OptiFoam was placed. - Change optifoam daily. Gout, possible flare up - Left hand, index finger erythema noted - Colchicine 1.2mg x 1 dose given, then 0.6 mg after 1 hour then, 0.6 mg daily x 7 days - Improve ROM Sacral unstageable wound - May need surgical debridement. - Consult plastic surgery. Spoke with wound care nursing who is also recommending evaluation for possible debridement. Full code. Has IVC filter. Pharmacological prophylaxis is on hold due to retroperitoneal hematoma. Discharge Planning Plan is to wean off trach, increase physical activity and DC home with [facility]. Problem Qualifiers (1) Hyperlipidemia: Qualified Codes: E78.5 - Hyperlipidemia, unspecified (2) HTN (hypertension): Qualified Codes: I10 - Essential (primary) hypertension (3) Diabetes mellitus with hyperglycemia: Qualified Codes: E11.65 - Type 2 diabetes mellitus with hyperglycemia (4) Diarrhea: Qualified Codes: A09 - Infectious gastroenteritis and colitis, unspecified (5) Abdominal pain: Qualified Codes: R10.84 - Generalized abdominal pain (6) Sepsis: Qualified Codes: A41.9 - Sepsis, unspecified organism Stacie Branch Apr 09, 2017 08:07
[2017-04-09] MEDS: SODIUM CHLORIDE 0.9% FLUSH 10 ML FLUSH IV FLUSH SCH ×3 (09:00→21:19)
[2017-04-09] MEDS: CHLORHEXIDINE 0.12% (ORAL KIT) 15 ML CUP MT SCH ×2 (09:36→21:03)
[2017-04-09] MEDS: POTASSIUM CHLORIDE 25 MEQ EFFERVESCENT TAB PO SCH ×2 (09:37→21:18)
[2017-04-09] MEDS: INSULIN ASPART 1,000 UNITS/10 ML VIAL SQ SCH ×3 (09:40→17:08)
[2017-04-09] MEDS: INSULIN DETEMIR 100 UNITS/ML VIAL SQ SCH ×2 (09:40→21:17)
[2017-04-09] MEDS: ATENOLOL 25 MG TAB PO SCH ×2 (09:42→21:20)
[2017-04-09] MEDS: LANSOPRAZOLE SOLUTAB 30 MG TAB NG SCH ×2 (09:42→21:20)
[2017-04-09] MEDS: LACTOBACILLUS ACIDOPHILUS TAB PO SCH ×3 (09:42→17:08)
[2017-04-09] MEDS: QUEtiapine FUMARATE 25 MG TAB PO SCH (09:43)
[2017-04-09] MEDS: COLCHICINE 0.6 MG TAB PO SCH (09:44)
[2017-04-09] MEDS: CHOLESTYRAMINE 4 GM PACKET G-TUBE SCH ×2 (09:44→21:18)
[2017-04-09] MEDS: TAMSULOSIN HCL 0.4 MG CAP PO SCH ×2 (09:44→21:21)
[2017-04-09] MEDS: HYDROCORTISONE SOD SUCCINATE 100 MG VIAL IV PUSH SCH ×2 (09:45→21:18)
[2017-04-09 13:16] LABS: POTASSIUM 4.2 MEQ/L (3.5-5.1)
--- NOTE | 2017-04-09 13:28 | HHI.NPPN ---
Subjective History of Present Illness 61-year-old with history of urinary stone Additional Remarks Patient had trach on trach o2, not in distress. Review of Systems General Constitutional: Fatigue Objective Data Data 04/09/17 04/10/17 19:00 07:00 Intake Total 400 ml Balance 400 ml Tube Irrigant 400 ml Vital Signs Date Time Temp Pulse Resp B/P (MAP) Pulse Ox O2 Delivery O2 Flow Rate FiO2 04/09/17 13:07 99 Trach Collar 5.00 28 04/09/17 12:19 99.1 100 20 167/83 (111) 100 04/09/17 09:26 99 Trach Collar 28 04/09/17 08:41 98.1 92 20 124/66 (85) 100 04/09/17 08:06 88 04/09/17 06:30 99.0 90 21 130/59 (82) 99 04/09/17 00:45 97.6 89 20 125/60 (81) 98 04/08/17 20:50 98.8 80 20 121/66 (84) 98 04/08/17 20:33 Trach Collar 5.00 28 04/08/17 20:25 97 Nasal Cannula 2.00 04/08/17 16:00 98.6 95 17 100/63 (75) 96 -: 04/08/17 0842 04/09/17 1222 Physical Exam General Appearance: Pale Eyes Eye Exam: Pupils Equal Throat Throat Exam: Oral Mucosa [place] & Moist Neck Neck Exam: Neck Supple Pulmonary Resp Exam: Clear Bilaterally Cardiology CV Exam: Normal Sinus Rhythm Gastrointestinal/Abdomen GI Exam: Non-Tender, Distended Extremeties Extremities Exam: Moderate Edema, Pitting Edema Neurologic Neuro Exam: Awake Assessment/Plan Problem List: (1) Acute renal failure ICD Codes: N17.9 - Acute kidney failure, unspecified Status: Acute Plan: Patient developed Hypotension,sepsis staph aureus respiratory failure and increase WBC. Had aspiration pneumonia, developed sepsis with ARF again creatinine declined slightly post hydration he also had retroperitoneal bleed Pseudomonas in sputum, with colonized airway 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 Patient had been on dialysis earlier in hospitalization. Recently given Albumin followed By Lasix 40 mg IV q12, as retaining fluids UOP improved with Lasix; however, stopped albumin/Lasix with increased in creatinine. Intitiated trial of IVFs yesterday - NS , Creatinine 2.0 -> 1.8. 1.6 Continue IVFs, closely monitor volume status.IVF 50 cc/hr On free water flushes 300 cc q 4: Na 139 (2) CKD (chronic kidney disease) stage 3, GFR 30-59 ml/min ICD Codes: N18.3 - Chronic kidney disease, stage 3 (moderate) Status: Chronic Plan: Ultrasound revealed chronic kidney disease there is no kidney stones (3) Diabetes ICD Codes: E11.9 - Type 2 diabetes mellitus without complications Plan: Continue to monitor (4) Distal end of ulna fracture, closed ICD Codes: S52.609A - Unspecified fracture of lower end of unspecified ulna, initial encounter for closed fracture Status: Acute Plan: Orthopedic is following Problem Qualifiers (1) Acute renal failure: Qualified Codes: N17.9 - Acute kidney failure, unspecified Laura Liao MD Apr 09, 2017 13:28
--- NOTE | 2017-04-09 14:25 | PD.CAR.PN ---
CVT Progress Note Subjective/Hospital Course: Patient with sacral decubitus. My general surgery consult has been canceled in favor of plastic surgery consult for management of the sacral decubitus. Will sign off Thanks J Objective: Vital Signs Date Time Temp Pulse Resp B/P (MAP) Pulse Ox O2 Delivery O2 Flow Rate FiO2 04/09/17 13:07 99 Trach Collar 5.00 28 04/09/17 12:19 99.1 100 20 167/83 (111) 100 04/09/17 09:26 99 Trach Collar 28 04/09/17 08:41 98.1 92 20 124/66 (85) 100 04/09/17 08:06 88 04/09/17 06:30 99.0 90 21 130/59 (82) 99 04/09/17 00:45 97.6 89 20 125/60 (81) 98 04/08/17 20:50 98.8 80 20 121/66 (84) 98 04/08/17 20:33 Trach Collar 5.00 28 04/08/17 20:25 97 Nasal Cannula 2.00 04/08/17 16:00 98.6 95 17 100/63 (75) 96 Labs: Laboratory Tests Test 04/09/17 12:22 Blood Urea Nitrogen 103 MG/DL (7-18) Creatinine 1.68 MG/DL (0.60-1.30) Random Glucose 81 MG/DL (74-106) Calcium Level 8.3 MG/DL (8.5-10.1) Sodium Level 139 MEQ/L (136-145) Potassium Level 4.2 MEQ/L (3.5-5.1) Chloride Level 105 MEQ/L (98-107) Carbon Dioxide Level 22.0 MEQ/L (21.0-32.0) Anion Gap 12 MEQ/L (5-15) Estimat Glomerular Filtration Rate 42 ML/MIN (>89) Result Diagram: 04/08/17 0842 04/09/17 1222 (1) Cardiomyopathy Adrian Slater MD Apr 09, 2017 14:25
[2017-04-09 15:26] LABS: AUTOMATED NEUTROPHIL # 10.2 TH/MM3 (1.8-7.7); BASOPHIL # 0.1 TH/MM3 (0-0.2); BASOPHIL % 0.5 % (0.0-2.0); EOSINOPHIL # 0.2 TH/MM3 (0-0.4); HEMATOCRIT 25.7 % (39.0-51.0); LYMPH % 3.8 % (9.0-44.0); LYMPHOCYTE # 0.4 TH/MM3 (1.0-4.8); MEAN CELL VOLUME 86.8 FL (80.0-100.0); MEAN CORPUSCULAR HEMOGLOBIN 29.7 PG (27.0-34.0); MEAN CORPUSCULAR HGB CONC 34.2 % (32.0-36.0); NEUT % 88.7 % (16.0-70.0); PLATELET COUNT 514 TH/MM3 (150-450); RED BLOOD COUNT 2.96 MIL/MM3 (4.50-5.90); RED CELL DISTRIBUTION WIDTH 16.2 % (11.6-17.2); WHITE BLOOD COUNT 11.5 TH/MM3 (4.0-11.0)
[2017-04-09 15:38] LABS: HEMO FLAGS AUTO DIFF
[2017-04-09 16:42] LABS: BANDS 9 % (0-6); BASOPHILS 1 % (0-2); EOSINOPHILS 2 % (0-4); METAMYELOCYTES 5 % (0-1); MYELOCYTES 5 % (0-0); NEUTROPHIL # MANUAL DIFF 10.6 TH/MM3 (1.8-7.7); POLYS (SEG NEUTROPHILS) 73 % (16-70); SCAN/DIFF FINAL DIFF MANUAL; WBC DIFF SAMPLE 100
[2017-04-09 16:43] LABS: PLATELET ESTIMATE SMEAR HIGH (NORMAL); PLATELET MORPHOLOGY NORMAL (NORMAL)
[2017-04-09 16:44] LABS: DOHLE BODIES PRESENT (NONE SEEN); TOXIC VACUOLATION PRESENT (NONE SEEN)
[2017-04-09 16:48] LABS: TEARDROP RBCS 1+ (NORMAL)
[2017-04-09] MEDS: ATORVASTATIN 10 MG TAB PO SCH (21:21)
[2017-04-10] VITALS (12 sets, daily range): BP systolic 110–131; BP diastolic 59–78; PULSE 81–96; RESP 20–22; TEMP 97.5–98.8; O2SAT 91–100
[2017-04-10] MEDS: SODIUM CHLOR 0.9% 1000 ML INJ 1,000 ML IV SCH ×2 (00:16→21:52)
[2017-04-10] MEDS: COLLAGENASE OINT 30 GM TUBE TOPICAL SCH (01:23)
[2017-04-10] MEDS: RESP: ALBUTEROL 2.5 MG/3 ML NEB (PRN) NEB (02:12)
[2017-04-10] MEDS: oxyCODONE HCL ORAL CONC 5 MG/0.25 ML SYRINGE PO SCH ×6 (02:32→22:09)
[2017-04-10] MEDS: HYOSCYAMINE SOLN 0.125 MG/ML 15 ML BTL G-TUBE PRN (02:33)
[2017-04-10] MEDS: ALPRAZolam 0.25 MG TAB PO PRN (04:01)
[2017-04-10] MEDS: FREE WATER G-TUBE SCH ×6 (04:02→20:00)
[2017-04-10] MEDS: INSULIN ASPART SUPPLEMENTAL SCALE SQ SCH ×5 (08:00→23:20)
[2017-04-10] MEDS: CHLORHEXIDINE 0.12% (ORAL KIT) 15 ML CUP MT SCH ×2 (08:00→20:00)
[2017-04-10] MEDS: INSULIN ASPART 1,000 UNITS/10 ML VIAL SQ SCH ×2 (08:00→12:00)
[2017-04-10] MEDS: INSULIN DETEMIR 100 UNITS/ML VIAL SQ SCH ×2 (09:00→23:00)
[2017-04-10] MEDS: QUEtiapine FUMARATE 25 MG TAB PO SCH (10:06)
[2017-04-10] MEDS: HYDROCORTISONE SOD SUCCINATE 100 MG VIAL IV PUSH SCH (10:07)
[2017-04-10] MEDS: POTASSIUM CHLORIDE 25 MEQ EFFERVESCENT TAB PO SCH ×2 (10:07→22:08)
[2017-04-10] MEDS: LANSOPRAZOLE SOLUTAB 30 MG TAB NG SCH ×2 (10:07→21:00)
[2017-04-10] MEDS: COLCHICINE 0.6 MG TAB PO SCH (10:08)
[2017-04-10] MEDS: ATENOLOL 25 MG TAB PO SCH ×2 (10:08→22:08)
[2017-04-10] MEDS: TAMSULOSIN HCL 0.4 MG CAP PO SCH ×2 (10:08→22:08)
[2017-04-10] MEDS: LACTOBACILLUS ACIDOPHILUS TAB PO SCH ×3 (10:08→17:09)
[2017-04-10] MEDS: CHOLESTYRAMINE 4 GM PACKET G-TUBE SCH ×2 (10:09→22:09)
[2017-04-10] MEDS: SODIUM CHLORIDE 0.9% FLUSH 10 ML FLUSH IV FLUSH SCH ×3 (10:11→21:00)
[2017-04-10 10:46] LABS: BICARBONATE 23.5 MEQ/L (21.0-32.0); POTASSIUM 3.9 MEQ/L (3.5-5.1)
--- NOTE | 2017-04-10 11:02 | HHI.PR ---
Subjective Remarks Follow-up on patient with metabolic encephalopathy, transverse myelitis, acute respiratory failure status post tracheostomy. Patient seen and examined. Patient awake and alert. Confused, oriented to self only. Asking to remove his shirt because his neck is bothering him. Denies any headache, dizziness or vision changes. Denies any chest pain or dyspnea. Denies any nausea or vomiting. Objective Vitals Vital Signs Date Time Temp Pulse Resp B/P (MAP) Pulse Ox O2 Delivery O2 Flow Rate FiO2 04/10/17 07:59 97.9 90 20 110/59 (76) 99 04/10/17 07:25 18 04/10/17 04:07 97.7 96 22 117/66 (83) 99 04/10/17 03:27 94 04/10/17 02:28 91 Trach Collar 6.00 35 04/10/17 02:24 91 Trach Collar 6.00 35 04/10/17 00:00 98.8 92 22 131/64 (86) 99 04/09/17 22:01 95 Trach Collar 6.00 28 04/09/17 20:00 98.8 92 22 124/68 (86) 96 04/09/17 16:44 99.2 95 20 164/79 (107) 99 04/09/17 13:07 99 Trach Collar 5.00 28 04/09/17 12:19 99.1 100 20 167/83 (111) 100 I/O 04/09/17 04/09/17 04/09/17 04/10/17 04/10/17 04/10/17 07:00 15:00 23:00 07:00 15:00 23:00 Intake Total 1860 ml 450 ml 1340 ml 1632 ml Output Total 1650 ml 1000 ml 1000 ml Balance 1860 ml -1200 ml 340 ml 632 ml Intake Oral 0 ml 0 ml IV Total 600 ml 50 ml 378 ml 1137 ml Tube Feeding 660 ml 762 ml 495 ml Tube Irrigant 400 ml 200 ml Other 600 ml Output Urine Total 1250 ml 1000 ml 1000 ml Stool Total 400 ml # Bowel Movements 0 Result Diagram: 04/09/17 1405 04/10/17 0950 Imaging Last Impressions Chest X-Ray 04/06/17 0000 Signed Impressions: Service Date/Time: Thursday, April 06, 2017 14:50 - CONCLUSION: Left pleural effusion and basilar density. Armando Dodd MD Renal Ultrasound 04/02/17 0000 Signed Impressions: Service Date/Time: Sunday, April 02, 2017 16:59 - CONCLUSION: Limited exam with the left kidney being unable to be evaluated in the bladder not distended. There do appear to be multiple shadowing stones at the right kidney without hydronephrosis. Angelo Manzo MD Wrist X-Ray 03/27/17 0000 Signed Impressions: Service Date/Time: Monday, March 27, 2017 13:21 - CONCLUSION: 1. No acute fracture is identified. A portion of the previously documented distal ulna fracture remains visualized. 2. 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 Angelo Allen MD Aortography 02/28/17 0000 Signed Impressions: Service Date/Time: Tuesday, February 28, 2017 08:01 - CONCLUSION: 1. Active hemorrhage from distal right lateral sacral and iliolumbar branches successfully coil and Gelfoam embolized, as above. Juan Bhakta MD Abdomen/Pelvis CT 02/28/17 0000 Signed Impressions: Service Date/Time: Tuesday, February 28, 2017 06:51 - CONCLUSION: 1. The right retroperitoneal hematoma has increased in size, as above. There are 2 serpiginous arterially enhancing structures visualized, one in the right psoas muscle and another extending into the hematoma at the right iliac fossa. These could represent sites of continued active bleeding. 2. Stable moderate size left and small right pleural effusion with associated compressive atelectasis. 3. Stable small volume of free fluid in the abdomen and pelvis. There is also anasarca. The findings concerning the retroperitoneal hematoma were discussed with Dr. Aguiar via telephone at approximately 7: 10 AM on 02/28/2017. Angelo Allen MD Chest CT 02/27/17 0000 Signed Impressions: Service Date/Time: Monday, February 27, 2017 18:12 - CONCLUSION: 1. Bilateral pleural effusions with bibasilar atelectasis, left greater than right. Tom Sanchez MD Abdomen X-Ray 02/26/17 0000 Signed Impressions: Service Date/Time: Sunday, February 26, 2017 14:52 - CONCLUSION: 1. Nonobstructive bowel gas pattern. Juan Bhakta MD Upper Extremity Ultrasound 02/10/17 Signed Impressions: Service Date/Time: Friday, February 10, 2017 18:46 - CONCLUSION: Occlusive thrombus in the cephalic and basilic veins. Benjamin Person MD Lung Scan-V Nuclear Medicine 02/10/17 Signed Impressions: Service Date/Time: Friday, February 10, 2017 22:17 - CONCLUSION: Low probability pulmonary embolism. Candido Patton MD Head CT 02/10/17 Signed Impressions: Service Date/Time: Friday, February 10, 2017 23:51 - CONCLUSION: Negative noncontrast CT brain. Candido Patton MD Lumbar Puncture Fluoroscopy 02/01/17 Signed Impressions: Service Date/Time: January 09:35 - CONCLUSION: Uncomplicated fluoroscopically guided lumbar puncture. CSF was clear. Nabeel Peralta MD Head Magnetic Resonance Angiography 01/27/17 Signed Impressions: Service Date/Time: Friday, January 27, 2017 10:33 - CONCLUSION: No intracranial vascular abnormality is identified. There is no aneurysm visualized. Angelo Allen MD IVC Filter Placement X-Ray 01/25/17 Signed Impressions: Service Date/Time: January 10:29 - CONCLUSION: Uncomplicated inferior vena cava filter placement as above. Yung Fowler MD Thoracic Spine MRI 01/24/17 Signed Impressions: Service Date/Time: Tuesday, January 24, 2017 22:29 - CONCLUSION: 1. Mild degenerative spondylosis most prominently at T11-L1 with slight effacement of the anterior thecal sac and left lateral recess. No significant neural foraminal stenosis. 2. No acute fracture. Juan Bhakta MD Lumbar Spine MRI 01/23/17 Signed Impressions: Service Date/Time: Monday, January 23, 2017 17:01 - CONCLUSION: 1. At L4-5 is a broad-based disc protrusion with severe central canal and lateral recess stenosis and flattening of the exiting right L4 nerve root. 2. L5-S1 there is a disc protrusion and moderate stenosis with flattening of the exiting L5 nerve roots bilaterally. 3. At L3-4 there is a moderate to severe central stenosis and lateral recess stenosis with mild foraminal stenosis. 4. No acute fracture or spondylolisthesis. Trace Holloway MD Lower Extremity Ultrasound 01/23/17 Signed Impressions: Service Date/Time: Monday, January 23, 2017 09:53 - CONCLUSION: Bilateral focal lower extremity DVT involving the posterior tibial veins. Angelo Garrido MD Cervical Spine MRI 01/23/17 Signed Impressions: Service Date/Time: Monday, January 23, 2017 17:01 - CONCLUSION: 1. Multilevel cervical spine degenerative changes as above. 2. Mild degrees of spinal stenosis at C3/C4-C6/C7. No cord compression or cord signal abnormality. 3. Age indeterminate left paracentral/foraminal disc protrusion at C6/C7. 4. Multilevel foraminal stenosis, most severe on the left at C6/C7. Please see individual levels above. 5. No fracture or subluxation of the cervical spine. Angelo Garrido MD Brain MRI 01/23/17 Signed Impressions: Service Date/Time: Monday, January 23, 2017 17:01 - CONCLUSION: 1. No acute stroke or other acute intracranial abnormality demonstrated. 2. Moderate severity chronic white matter changes, nonspecific but most likely related to chronic small vessel disease. 3. Few scattered tiny lacunar infarcts of the brainstem. 4. Given the findings are not entirely specific, clinical evaluation for possible multiple sclerosis recommended. Angelo Garrido MD Knee X-Ray 01/22/[id number] Signed Impressions: Service Date/Time: Sunday, January 22, 2017 21:17 - CONCLUSION: 1. Evidence of moderate to large joint effusion. 2. No acute fracture or malalignment. 3. Mild 3 compartment osteoarthritic change. Benjamin Person MD Hip and Pelvis X-Ray [id number]/22/172053 Signed Impressions: Service Date/Time: Sunday, January 22, 2017 21:10 - CONCLUSION: 1. Mild to moderate degenerative change of both hips with no acute fracture or malalignment. There is flattening and remodeling of the right humeral head. Benjamin Person MD Objective Remarks GENERAL: This is a well-nourished, well-developed patient, in no apparent distress. Awake and alert. Patient in soft restraints. SKIN: Warm and dry. HEENT: Normocephalic. Pupils equal round and reactive. Nose without bleeding. Airway patent. NECK: Tracheostomy site capped. Optifoam under tracheostomy site wagner, skin sloughing possibly pressure related as patient has short neck. CARDIOVASCULAR: Regular rate and rhythm without murmurs, gallops, or rubs. RESPIRATORY: Diminished bases. No wheezes, rales, or rhonchi. 2L nc. O2 sat 100 % GASTROINTESTINAL: Abdomen soft, non-tender, nondistended. Bowel Sounds active x4. Fecal incontinence bag in place draining brown stool. PEG tube site C/D/I. GENITOURINARY: Palmer catheter in place with yellow urine in bag. MUSCULOSKELETAL: Extremities without clubbing, cyanosis. BLE with 1+ pitting edema. Notable tophi on small joints fingers and toes. Left arm edema/ slight erythema. NEUROLOGICAL: Awake and alert. Oriented to person. No focal neuro deficit. Moves all extremities weakly. Normal speech, minimal verbalization. Procedures IVC filter placement 01/25/2017 LP 01/26/2017 Medications and IVs Current Medications Medications (Trade) Dose Ordered Sig/Rosalia Route Start Time Stop Time Status Last Admin (NS Flush) 2 ml UNSCH PRN IV FLUSH 01/23/17 00:30 03/29/17 05:59 (NS Flush) 2 ml BID IV FLUSH 01/23/17 09:00 04/10/17 10:11 (Zofran Inj) 4 mg Q6H PRN IVP 01/23/17 00:30 02/26/17 17:23 (Narcan Inj) 0.4 mg UNSCH PRN IV 01/23/17 00:30 (Edna-Colace) 1 tab BID PO 01/23/17 09:00 Future Hold 02/24/17 20:31 (Dulcolax Supp) 10 mg DAILY PRN RECTAL 01/23/17 00:30 (Lipitor) 10 mg HS PO 01/24/17 21:00 Future hold 04/09/17 21:21 (Glucagon Inj) 1 mg UNSCH PRN OTHER 02/11/17 05:45 02/18/17 18:53 (Flomax) 0.4 mg Q12HR PO 02/17/17 15:00 Future hold 04/10/17 10:08 (Lovenox Inj) 100 mg Q12H SQ 02/18/17 12:00 Future Hold 02/26/17 16:20 (Lactinex) 1 tab TID PO 02/19/17 13:00 04/10/17 10:08 (D50w (Vial) Inj) 25 ml UNSCH PRN IV PUSH 02/20/17 12:45 03/27/17 13:20 (Questran Light Pkt) 4 gm Q12HR PO 02/25/17 21:00 Future Hold 02/27/17 10:32 (Aldactone) 25 mg DAILY PO 02/27/17 09:00 Future Hold (Peridex 0.12% Liq) 15 ml BID@08,20 MT 02/28/17 08:00 04/10/17 08:00 (Albuterol Neb) 2.5 mg Q2HR NEB PRN NEB 02/28/17 07:45 04/10/17 02:12 (NS Flush) UNSCH PRN IV FLUSH 03/01/17 13:00 (Heparin Inj) UNSCH PRN IV FLUSH 03/01/17 13:00 (NS Flush) DAILY IV FLUSH 03/04/17 09:00 04/10/17 10:12 (NS Flush) UNSCH PRN IV FLUSH 03/03/17 18:45 (Prevacid Odt) 30 mg BID NG 03/07/17 21:00 04/10/17 10:07 (Tylenol 650 Mg/ 20 ml Liq) 650 mg Q6H PRN PO 03/09/17 10:15 04/01/17 22:23 (Tenormin) 25 mg Q12HR PO 03/12/17 10:00 04/10/17 10:08 (Epogen Inj) 10,000 units UNSCH PRN IV PUSH 03/17/17 11:30 03/22/17 10:52 (Nitroglycerin 2% Oint) 2 inch Q6H PRN TOPICAL 03/23/17 14:00 03/29/17 01:20 (Norvasc) 10 mg DAILY PO 03/28/17 09:00 04/10/17 10:08 (Free Water) VOLUME OF WATER: ( 200 ) ML Q4HR G-TUBE 03/30/17 17:00 04/10/17 08:00 (Roxicodone Intensol Liq) 5 mg Q4H PO 04/01/17 18:00 04/10/17 10:06 (NovoLOG SUPPLEMENTAL SCALE) 1 ACHS SLIDING SCALE SQ 04/02/17 12:00 04/08/17 10:15 (SoluCORTEF INJ) 12.5 mg BID IV PUSH 04/02/17 21:00 04/10/17 10:07 (Levemir Inj) 10 units BID SQ 04/03/17 21:00 04/10/17 09:00 (NovoLOG INJ) 5 units TIDAC SQ 04/03/17 17:00 04/10/17 08:00 (Xanax) 0.125 mg Q6H PRN PO 04/03/17 22:30 04/10/17 04:01 (Pill Splitter) 1 ea UNSCH PRN OTHER 04/03/17 22:45 (K-Lyte Cl Eff) 25 meq Q12HR PO 04/04/17 14:30 04/10/17 10:07 (Colchicine) 0.6 mg DAILY PO 04/05/17 16:00 04/10/17 10:08 (Levsin Liq) 0.125 mg Q4H PRN G-TUBE 04/06/17 15:00 04/10/17 02:33 Sodium Chloride 1,000 ml @ 50 mls/hr Q20H IV 04/07/17 15:00 04/10/17 00:16 (Questran 4 Gm Pkt) 4 gm Q12HR G-TUBE 04/08/17 21:00 04/10/17 10:09 (SEROquel) 25 mg DAILY PO 04/09/17 09:00 04/10/17 10:06 (Santyl Oint) 1 applic DAILY TOPICAL 04/10/17 09:00 04/10/17 01:23 Date of Insertion: Mar 03, 2017 Line: Central Venous Catheter Side: Right Location: Internal, Jugular A/P Problem List: (1) Transverse myelitis ICD Code: G37.3 - Acute transverse myelitis in demyelinating disease of central nervous system Status: Acute (2) Septic shock ICD Code: A41.9 - Sepsis, unspecified organism; R65.21 - Severe sepsis with septic shock Status: Resolved (3) HCAP (healthcare-associated pneumonia) ICD Code: J18.9 - Pneumonia, unspecified organism (4) Acute respiratory failure with hypoxia and hypercarbia ICD Code: J96.01 - Acute respiratory failure with hypoxia; J96.02 - Acute respiratory failure with hypercapnia Status: Resolved (5) Hyperlipidemia ICD Code: E78.5 - Hyperlipidemia, unspecified Status: Chronic (6) HTN (hypertension) ICD Code: I10 - Essential (primary) hypertension (7) DVT of lower extremity, bilateral ICD Code: I82.403 - Acute embolism and thrombosis of unspecified deep veins of lower extremity, bilateral (8) Diabetes mellitus with hyperglycemia ICD Code: E11.65 - Type 2 diabetes mellitus with hyperglycemia (9) Hypocalcemia ICD Code: E83.51 - Hypocalcemia (10) Hypernatremia ICD Code: E87.0 - Hyperosmolality and hypernatremia (11) Hypokalemia ICD Code: E87.6 - Hypokalemia (12) Acute metabolic encephalopathy ICD Code: G93.41 - Metabolic encephalopathy (13) Quadriparesis ICD Code: G82.50 - Quadriplegia, unspecified Status: Acute (14) BREEZY (acute kidney injury) ICD Code: N17.9 - Acute kidney failure, unspecified (15) Diarrhea ICD Code: R19.7 - Diarrhea, unspecified (16) Abdominal pain ICD Code: R10.9 - Unspecified abdominal pain (17) Hypoglycemia ICD Code: E16.2 - Hypoglycemia, unspecified (18) Urinary retention ICD Code: R33.9 - Retention of urine, unspecified (19) Acute hypoxemic respiratory failure ICD Code: J96.01 - Acute respiratory failure with hypoxia (20) Sepsis ICD Code: A41.9 - Sepsis, unspecified organism Assessment and Plan Patient is a 62-year-old male with primary medical history of HTN, gout who came into the hospital for bilateral knee pain after a mechanical fall. Patient was found to have oblique fracture through distal right ulna. He was seen by orthopedic MD and recommended non operative treatment. Patient has been experiencing gradual lower extremity weakness and upper extremity weakness. Suspected Transverse Myelitis Acute metabolic encephalopathy - persistent - Recurrent falls and quadriparesis secondary to suspected transverse myelitis - MRI revealed no acute stroke. He had multifocal white matter changes. Tiny lacunar infarcts of the brainstem. - Lumbar MRI report states L4-L5 disc protrusion with central canal stenosis - Patient was treated in critical care unit and received methylprednisolone 250 mg IV every 6 hours 01/27-02/02, started back on hydrocortisone 02/21/17, initially tapering to 50 mg IV every 8 hours starting 02/26 received 1 dose at 2100 prior to becoming hypotensive. Weaning hydrocortisone taper and stopped . Resumed hydrocortisone 50mg IV Q6hrly on 03/14 as patient became hypotensive following intubation on 03/13 requiring levophed. Stress dose. D/ C IV. Begin 10mg po BID. - LP 01/26 and 02/01. CSF culture negative 01/26, 02/01 Oligoclonal bands negative. CSF/serum IgG index is not elevated. VDRL nonreactive. Cryptococcal antigen negative. - Brain MRI cervical/thoracic spine with mild spinal stenosis C3/C4 to C6/ C7. No cord compression. RPR negative. - Neurology has been following, Dr. Crenshaw. Repeat CT brain 02/10 - negative. - Neurosurgery has been following, Dr. Blackwell, no cord compression recommends non operative treatment - Continue PT/OT. OOB to chair daily x 7days. - Continue pain control with a bowel regimen. Acute hypoxemic respiratory failure Severe sepsis, resolved Healthcare associated pneumonia/Aspiration Pneumonia S/P Tracheostomy placement - He was treated in critical care with Right-sided chest tube placed for pleural effusion. Orally intubated. Extubated 02/23. Reintubated 02/28. Extubated 03/11. Reintubated on 03/13. 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 Failed attempt to wean successfully due to volume overload and multiple organ failure. Underwent perc tracheostomy 03/14. - VQ scan 02/[address] PE[address] chest 02/10 - left lower lobe collapse and consolidation. - CT chest 02/27 revealed right greater than left pleural effusions. - Pulmonology following for [facility], [facility]. [facility] - Albuterol/ipratropium aerosols every 4 hours with albuterol aerosols every 2 hours PRN. - Did not tolerate capping. On trach collar now. Secretions thick and moderate amount. - Started on Levsin. CXR 04/06 showed left sided pleural effusion and basilar density. - Patient afebrile. Systolic heart failure likely chronic with ejection fraction 20-25% Hyperlipidemia, History of hypertension Elevated troponin likely type II demand ischemia, tachycardia - In critical care unit he was on pressors. Levophed on 03/09 following intubation, titrated off after starting hydrocortisone. Started hydrocortisone stress dose on 03/14 (as patient has been on steroids and was just tapered off on 03/09.) Patient had been hypotensive twice when attempting to wean off stress dose hydrocortisone in the past. EKG with nonspecific ST-T changes. 2-D echocardiogram 01/11 revealed EF 20-25%. Mild TR. Pulmonary arterial pressures were normal around 20. Troponin 6.55 on 03/02. - Likely will need stress test of heart once stable. Cannot anticoagulate due to retroperitoneal hematoma at the present time. - Currently on atenolol 25 mg twice a day. Continue amlodipine 10 mg daily. - Atorvastatin 10 mg by mouth daily for dyslipidemia. - Lasix 40mg IV Q12hrs, DC by Nephro and patient was started on IVF. - continue gentle NS- 50 cc/hr - continue to monitor closely for volume overload of failure and montior renal functions. - Continue to hold Aldactone for now. Monitor kidney function closely. Monitor electrolytes. - Monitor BP Trend Large right retroperitoneal hematoma Erosive esophagitis Adenomatous/hyperplastic colon polyps Severe acute protein calorie malnutrition Gastritis, Diverticulosis, Hiatal hernia Internal and external hemorrhoids Diarrhea Elevated lipase - 02/27 CT chest/abdomen and pelvis - 9.4 x 7.5 renal and 16 x 12 cm right psoas muscle hematoma. Fluid around liver and spleen. Right-sided nephrolithiasis. - CTA abdomen 02/28 - possible blushing around iliac/lumbar vessels. Discussed with IR. s/p attempted embolization. - CT abdomen and pelvis 02/10 atrophic left kidney. Bilateral inguinal hernias fat-containing. Nonobstructing 12 mm right kidney stone. Repeat CT abd/ pelvis did not show evidence of obstruction. - EGD/Colonoscopy-02/22/17 showed gastritis esophagitis, hiatal hernia, diverticulosis and multiple polyps in descending colon and sigmoid which were snared biopsied. Biopsy pending. Dr. Lewis consulted for intervention if needed for elevated IAP. - PEG tube placement by . - Lansoprazole 30 mg twice a day for GI prophylaxis. - Tube feeding Nephro goal 55 - Fecal rectal collection for diarrhea. Lactinex TID. - Negative Cdiff. Continue Questran. Acute kidney injury in the setting of Chronic kidney disease stage 3-4 History of uric acid kidney stones with prior stent BPH Nonfunctioning left kidney - Palmer placed due to urinary retention and worsening creatinine. Maintain Palmer secondary to urinary retention - RIOS/SPEP negative. - Urology has followed for uric acid nephrolithiasis. Recommended nephrostomy tube if obstruction. Nephrology consulted, hemodialysis per nephrology. Making urine. Due to acute illness holding tamsulosin 0.4 mg by mouth daily for BPH. - Decreased urine output, creatinine increased 04/02 to 1.67. Per nephrology , patient is on Albumin and Lasix IV. Recommends to continue with diureses before but renal indices went up, DC lasix and IVF was started by Dr. Singer. Will consider decreasing fluids as patient is now edematous, HX CHF with low EF. 04/10 as above - Heplock IVF. Resume Lasix at 1/2 dose. Monitor kidney fxn closely. Septic shock- resolved. Abscess and Suppurative thrombophlebitis left upper extremity MSSA bacteremia Klebsiella UTI ESBL positive Acute aspiration pneumonia/HCAP - Previously treated with Bactrim, ertapenem, intermittent vancomycin, nafcillin. Blood cultures 2, UA ESBL positive Klebsiella UTI. - Repeat blood cultures 2 negative and sputum 03/08 Stenotrophomonas Maltophiloa, Klebsiella Pneumoniae - Sputum 03/14 - Pseudomonas came back resistant to imipenem. - Sputum Culture Repeat 04/01/17 - Pseudomonas Aeroginosa. - ID following. Recommends Tobramycin Nebs x7 days. Signed off to reconsult PRN. Acute blood loss anemia DVT, bilateral posterior tibial vein, IVC filter Septic thrombophlebitis with occlusive thrombus mid cephalic and basilic vein side - Patient has received total of 23 PRBC, 10 FFP, 3 platelets, 1 cryo-02/28. - Ultrasound 01/23/17 - Bilateral lower extremity with occlusive posterior tibial vein DVTs. Heparin was initially started for DVT but was placed on hold due to LP with suspected traumatic tap. IVC filter was placed 01/25/17. Ultrasound LUE 02/10 occlusive thrombus mid cephalic vein, basilic veins. - Trend CBC. Stable. Diabetes mellitus History of prior adrenal insufficiency with shock - EGD colonoscopy completed 02/22. Gastritis and esophagitis, colon polyps. Started Hydrocortisone 100 mg every 8 hours 02/21/17 (Recent high dose steroids use now hypotensive, hypoglycemic), steroids had been tapered off. Resumed stress dose steroids on 03/16 as patient back on Levophed for pressor support after intubation. - Hydrocortisone 12.5mg BID - Levemir 10 units BID. Prandial insulin Aspart 5units TIDAC - hold prandial insulin for now due to low blood sugars - Continue sliding scale insulin. Right distal ulna fracture, nondisplaced - Dr. Nathan with orthopedics has evaluated and recommended nonoperative management. - Right wrist, no restrictions, weightbearing as tolerated as per ortho recommendation - OT AROM and PROM, continue Pressure wound tracheostomy wagner site. - Patient was seen with OptiFoam under tracheostomy wagner. Patient has some erosion of skin, and sloughing at the edge of the tracheostomy wagner, OptiFoam serves as a barrier for cushion to avoid further damage of the skin. Site was cleansed with normal saline and OptiFoam was placed. - Change optifoam daily. Gout, possible flare up - Left hand, index finger erythema noted - Colchicine 1.2mg x 1 dose given, then 0.6 mg after 1 hour then, 0.6 mg daily x 7 days. Stop date noted. - Improve ROM Sacral unstageable wound - May need surgical debridement. - Consult general surgery - evaluated by Dr. Pinto who recommended plastic sx evaluation. 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 Has IVC filter. Pharmacological prophylaxis is on hold due to retroperitoneal hematoma. Discharge Planning SSI pending Attending Statement seen and examined tolerating tube feedings at goal rate awake and alert, stated his name palmer in place - good urine output PE_ awake and alert, ff some commands anicteric no nuchal rigidity trac- capped since this am A/P Acute on chronic kidney injury good urine output creatinine stabilizing. on gentle IVF NS 50 cc/hr nephrology ff ff BMP S/P Respiratory failure- trial of trac capping since this am- so far tolerating well- good sats- RT ff CMP- EF 20-25%. continue meds monitor on gentle IVF hydration Lasix on hold for now REcent history of transverse Myelitis PT daily S/P Recent shock with adrenal insufficiency on solucortef bid- change to po 10 mg bid Diarrhea- C diff negative. gentle NS HCAP S/P Tx DM- ff blood sugars S/P IVC filter for Bilateral DVT Problem Qualifiers (1) Hyperlipidemia: Qualified Codes: E78.5 - Hyperlipidemia, unspecified (2) HTN (hypertension): Qualified Codes: I10 - Essential (primary) hypertension (3) Diabetes mellitus with hyperglycemia: Qualified Codes: E11.65 - Type 2 diabetes mellitus with hyperglycemia (4) Diarrhea: Qualified Codes: A09 - Infectious gastroenteritis and colitis, unspecified (5) Abdominal pain: Qualified Codes: R10.84 - Generalized abdominal pain (6) Sepsis: Qualified Codes: A41.9 - Sepsis, unspecified organism Conchita Mckenna Apr 10, 2017 11:02 Yovanny Townsend MD Apr 10, 2017 15:46
--- NOTE | 2017-04-10 14:39 | HHI.HCPN ---
Reason for visit a. To assist with evaluation and management of symptoms including: shortness of breath, pain, debility b. To assist medical decision maker(s) with: better understanding of current medical conditions; weighing benefits/burdens of medical treatment options; making medical treatment decisions. Subjective/Interval History Patient seen in his room in bed and asleep. Easily arousable and conversant. Patient states that he is usually awake in the morning and sleepy in the is tired afternoon due to tiredness. Denies pain and showing no signs of distress or discomfort. Plastic surgery consulted for evaluation and management of an unstageable sacral wound with eschar. Nephrology following. PT and OT following. Patient is hemodynamically stable. Currently, tracheostomy is capped and is on 1 L NC saturating 100%. Laboratory work up revealing sodium 142, potassium 3.9, BUN/ Creat 107/1.61, BNP 322. No recent imaging. Case discussed with bedside ROHINI Pritchard. Family/friend interactions No family at bedside. . Advance Directives Living Will: Never completed Health Care Surrogate: Never completed Durable Power of Specimen Preparation Assistant: Never completed Advance Directive Specifics Documented care wishes: No known documented care wishes have been completed. . Objective Vital Signs Date Time Temp Pulse Resp B/P (MAP) Pulse Ox O2 Delivery O2 Flow Rate FiO2 04/10/17 12:22 97.7 91 20 119/72 (88) 99 04/10/17 08:40 99 Nasal Cannula 3.00 04/10/17 07:59 97.9 90 20 110/59 (76) 99 04/10/17 07:25 18 04/10/17 04:07 97.7 96 22 117/66 (83) 99 04/10/17 03:27 94 04/10/17 02:28 91 Trach Collar 6.00 35 04/10/17 02:24 91 Trach Collar 6.00 35 04/10/17 00:00 98.8 92 22 131/64 (86) 99 04/09/17 22:01 95 Trach Collar 6.00 28 04/09/17 20:00 98.8 92 22 124/68 (86) 96 04/09/17 16:44 99.2 95 20 164/79 (107) 99 Intake & Output 04/10/17 04/10/17 07:00 19:00 Intake Total 1632 ml Output Total 2000 ml Balance -368 ml IV Total 1137 ml Tube Feeding 495 ml Output Urine Total 2000 ml Physical Exam CONSTITUTIONAL/GENERAL: This is an ill-looking patient, in no acute distress or discomfort, sleeping but easily arousable. TUBES/LINES/DRAINS: PEG tube, #6Tracheostomy-capped on 1L NC, PIVs, FC SKIN: No jaundice. Ecchymoses on upper extremities. Sacral pressure wound and L heel pressure injury. Wound to anterior neck - tracheostomy insertion area with a foam dressing. Not diaphoretic. HEAD: Atraumatic. Normocephalic. EYES: Pupils equal and round, slight reaction.No scleral icterus. No injection or drainage. Fundi not examined. ENT: Trached. Nose without bleeding or purulent drainage. Moist oral mucosa. NECK: Trachea midline. #6 Tracheostomy midline- currently capped. - tracheostomy insertion area with a foam dressing. CARDIOVASCULAR: Regular rate and rhythm without murmurs, gallops, or rubs. No JVD. RESPIRATORY/CHEST: Symmetrical, clear to auscultation. Breath sounds equal bilaterally. Patient is currently capped on 1 L NC- O2 sats high 90s. GASTROINTESTINAL: Abdomen soft, non-tender, nondistended. No guarding. Bowel sounds present. Nepro-Goal infusing at 55ml/hr- Tolerating. Liquid stool GENITOURINARY: Without palpable bladder distension. Sloan catheter in with clear urine. Scrotal edema. MUSCULOSKELETAL: Gout tophi to fingers, knees, elbows and both ankles. No edema to all 4 extremities NEUROLOGICAL: Trached. Patient sleepy but easily arousable and verbal. Followed command with all 4 extremities. PSYCHIATRIC: No obvious anxiety/depression. no apparent hallucinations or other psychotic thought process. . Diagnostic Tests Laboratory Laboratory Tests Test 04/08/17 08:42 04/09/17 12:22 04/09/17 14:05 04/10/17 09:50 White Blood Count 12.2 TH/MM3 (4.0-11.0) 11.5 TH/MM3 (4.0-11.0) Red Blood Count 2.82 MIL/MM3 (4.50-5.90) 2.96 MIL/MM3 (4.50-5.90) Hemoglobin 7.8 GM/DL (13.0-17.0) 8.8 GM/DL (13.0-17.0) Hematocrit 24.5 % (39.0-51.0) 25.7 % (39.0-51.0) Mean Corpuscular Volume 87.0 FL (80.0-100.0) 86.8 FL (80.0-100.0) Mean Corpuscular Hemoglobin 27.9 PG (27.0-34.0) 29.7 PG (27.0-34.0) Mean Corpuscular Hemoglobin Concent 32.0 % (32.0-36.0) 34.2 % (32.0-36.0) Red Cell Distribution Width 15.8 % (11.6-17.2) 16.2 % (11.6-17.2) Platelet Count 256 TH/MM3 (150-450) 514 TH/MM3 (150-450) Mean Platelet Volume 8.5 FL (7.0-11.0) 9.0 FL (7.0-11.0) Neutrophils (%) (Auto) 84.9 % (16.0-70.0) 88.7 % (16.0-70.0) Lymphocytes (%) (Auto) 5.3 % (9.0-44.0) 3.8 % (9.0-44.0) Monocytes (%) (Auto) 6.3 % (0.0-8.0) 5.0 % (0.0-8.0) Eosinophils (%) (Auto) 2.9 % (0.0-4.0) 2.0 % (0.0-4.0) Basophils (%) (Auto) 0.6 % (0.0-2.0) 0.5 % (0.0-2.0) Neutrophils # (Auto) 10.4 TH/MM3 (1.8-7.7) 10.2 TH/MM3 (1.8-7.7) Lymphocytes # (Auto) 0.6 TH/MM3 (1.0-4.8) 0.4 TH/MM3 (1.0-4.8) Monocytes # (Auto) 0.8 TH/MM3 (0-0.9) 0.6 TH/MM3 (0-0.9) Eosinophils # (Auto) 0.4 TH/MM3 (0-0.4) 0.2 TH/MM3 (0-0.4) Basophils # (Auto) 0.1 TH/MM3 (0-0.2) 0.1 TH/MM3 (0-0.2) CBC Comment AUTO DIFF AUTO DIFF Differential Comment AUTO DIFF CONFIRMED FINAL DIFF MANUAL Blood Urea Nitrogen 110 MG/DL (7-18) 103 MG/DL (7-18) 107 MG/DL (7-18) Creatinine 1.88 MG/DL (0.60-1.30) 1.68 MG/DL (0.60-1.30) 1.61 MG/DL (0.60-1.30) Random Glucose 208 MG/DL (74-106) 81 MG/DL (74-106) 109 MG/DL (74-106) Total Protein 5.3 GM/DL (6.4-8.2) Albumin 2.0 GM/DL (3.4-5.0) Calcium Level 7.7 MG/DL (8.5-10.1) 8.3 MG/DL (8.5-10.1) 8.4 MG/DL (8.5-10.1) Phosphorus Level 2.9 MG/DL (2.5-4.9) Magnesium Level 1.7 MG/DL (1.5-2.5) Alkaline Phosphatase 139 U/L (45-117) Aspartate Amino Transf (AST/SGOT) 38 U/L (15-37) Alanine Aminotransferase (ALT/SGPT) 29 U/L (12-78) Total Bilirubin 0.6 MG/DL (0.2-1.0) Sodium Level 136 MEQ/L (136-145) 139 MEQ/L (136-145) 142 MEQ/L (136-145) Potassium Level 3.5 MEQ/L (3.5-5.1) 4.2 MEQ/L (3.5-5.1) 3.9 MEQ/L (3.5-5.1) Chloride Level 101 MEQ/L (98-107) 105 MEQ/L (98-107) 106 MEQ/L (98-107) Carbon Dioxide Level 25.8 MEQ/L (21.0-32.0) 22.0 MEQ/L (21.0-32.0) 23.5 MEQ/L (21.0-32.0) Anion Gap 9 MEQ/L (5-15) 12 MEQ/L (5-15) 13 MEQ/L (5-15) Estimat Glomerular Filtration Rate 37 ML/MIN (>89) 42 ML/MIN (>89) 44 ML/MIN (>89) Differential Total Cells Counted 100 Neutrophils % (Manual) 73 % (16-70) Band Neutrophils % 9 % (0-6) Lymphocytes % 3 % (9-44) Monocytes % 2 % (0-8) Eosinophils % 2 % (0-4) Basophils % 1 % (0-2) Neutrophils # (Manual) 10.6 TH/MM3 (1.8-7.7) Metamyelocytes 5 % (0-1) Myelocytes 5 % (0-0) Toxic Vacuolation PRESENT (NONE SEEN) Dohle Bodies PRESENT (NONE SEEN) Platelet Estimate HIGH (NORMAL) Platelet Morphology Comment NORMAL (NORMAL) Tear Drop Cells 1+ (NORMAL) Acanthocytes (NORMAL) B-Type Natriuretic Peptide 322 PG/ML (0-100) Result Diagram: 04/09/17 1405 04/10/17 0950 Procedures 01/25/2017- Retrievable IVC Filter placement 01/26/17-lumbar puncture with fluoroscopy-by interventional radiology 02/01/17- lumbar puncture fluoroscopy by interventional radiology 02/10/17- Endotracheal Intubation 02/10/17-left IJ central venous line placed 02/10/17-left femoral arterial line placed 02/11/17-Diagnostic and therapeutic bronchoscopy with bronchoalveolar lavage 02/11/17-Left upper extremity incision and debridement with excision of septic cephalic vein 02/13/17- Extubated 02/20/17- endotracheal intubation 02/20/17- Left subclavian central line placement 02/20/17-Right radial A-line placement 02/22/17-EGD/colonoscopy 02/28/17-right radial a line 02/28/17- Endotracheal intubation 02/28/17- right sided introducer catheter placement 02/28/17- Right IJ central line placement 02/28/17-Right chest tube placement 02/28/17- Embolization of inferior and superior sacral branches of right internal iliac artery 03/01/17- Hemodialysis access catheter 03/03/17-Right IJ central line placement 03/11/17-Extubated 03/13/17- Endotracheal intubation 03/14/17-Tracheostomy placement 03/15/17-PEG tube placement . Assessment and Plan Disease Oriented Problem List: (1) Acute respiratory failure (2) Septic shock (3) Aspiration pneumonia (4) Acute renal failure (5) CKD (chronic kidney disease) stage 3, GFR 30-59 ml/min (6) Cardiomyopathy (7) DVT of lower extremity, bilateral (8) Thrombophlebitis arm (9) Diabetes mellitus (10) Gout (11) HTN (hypertension) (12) Hyperlipidemia Symptom Scale: (1) Shortness of breath 0-10 Scale: Unable to quantify Comment: Trach downsized to #6. Ongoing capping trials. Currently capped on 1LNC . (2) Debility 0-10 Scale: Unable to quantify Comment: Progressive. . (3) Pain 0-10 Scale: Unable to quantify Comment: History of falls, gout, arthritis, and currently bedbound. . Pertinent Non-Medical Issues Psychosocial:Patient was born and raised in [place], [place]. Patient was once for 20 years, now and has 2 adult sons. 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 He recently resigned due to failing health. Spiritual: No gnosticist affiliation Legal: Per [place] statutes, in the absence of written advanced directives healthcare proxy decision making falls to the patient's 2 adult children. Patient's son (Davie) lives locally and wishes to participate in the role of the healthcare proxy decision maker. Palliative care has attempted to contact Arnel, has not call back. Patient`s sister Deb and patients brother verbalized that they have been updating Arnel on patient`s medical status. Ethical issues impacting care: No known ethical issues impacting care at this time. . Important Contacts Son-Davie Kerr - Son-Arnel Kerr- -cell -home Sister-Deb Curry . Prognosis Mr Kerr is a 62 years old male with a past medical history of hypertension, asthma, diabetes, hyperlipidemia, chronic kidney disease and gout. Patient presented to the ED on 01/22/17 complaining of bilateral knee and right arm pain after a mechanical fall 4 or 5 days prior to coming to the ER. Clinical course complicated with increased weakness leading to numerous diagnostic work ups for possible transverse myelitis, DVTs, retroperitoneal hematoma, aspiration pneumonia, intubation x 4 times, septic and hemorrhagic shock requiring support with pressors and multiple pRBC, FFP transfusions as well as platelets and cryo , renal failure requiring hemodialysis and sacral wound Given ongoing comorbidities, and prolonged hospitalization, patient remains at risk for further complications, deterioration and decline. Code Status: Full Code Plan PLAN: Legal decision maker: Patient is currently trached on TPierce and is not able to make any medical decisions for himself at this time. Patient has 2 adult sons Davie Kerr and Arnel Kerr. According to [place] Statute, his two aforementioned sons will serve as his health care proxys. Patient`s son Davie is acting in the role of HCP decision maker independently at this time given that he is the one who is reasonably available for consultation. Goals: 04/10/17- Remain Aggressive. CODE STATUS: Full Code SYMPTOMS: * Shortness of breath: Multifactorial. Patient has had aspiration pneumonia. Patient has been intubated 4 times this hospitalization. Patient has a tracheostomy. On duonebs. Patient is also on Hydrocortisone 50mg q 6 hours. Meter Maintenance Person following. Trach downsized to a 6. Patient is currently capped on 1 L NC. No respiratory distress noted, O2 saturation high 90s. Wound care following on wound to tracheostomy insertion area. Recommending continuing with capping trials * Pain: Patient presented initially complaining of pain to right wrist and bilateral knees after a mechanical fall. Patient has a history of gout, arthritis, multiple falls and is currently bedbound. Patient`s pain medication dose decreased from Oxycodone 10mg to Oxycodone 5mg q 4 hours ATC. Patient also on Hydrocortisone. Denies pain today. * Debility: Progressive. Patient has had decline in his health for the past 4 months, including progressively increased weakness and difficulty ambulating and prolonged hospitalization with multiple setbacks. Patient remains at high risk for further physical deconditioning and debility. PT and OT following with patient. PT and OT following. Patient will benefit from getting OOB to a stretcher chair . PT and OT following. Recommending Speech therapy consultation if patient tolerates Trials. Palliative care will continue to follow the patient during hospital course as condition evolves, to assist patient/decision-maker with understanding of their medical conditions, weighing benefits/burdens of treatment options, for clarification of goals of treatment. Additionally will assist with any symptoms of palliative concern. . Attestation To help prompt me to consider important information that might be impacting today's encounter and assessment, information from prior notes written by myself or my colleagues may have been "brought forward" into today's note. My signature on this note, however, is an attestation that I personally performed the exam, history, and/or decision-making noted today, and, unless otherwise indicated, the interactions with patient, family, and staff as well as the review of records all occurred today. I also attest that the listed assessment and stated plan reflect my best clinical judgment today based on the combination of historical information, prior notes, and today's exam/ interactions. When time spent is documented, it refers only to time spent today by the signer, or if indicated, combined time spent today by collaborating physician/nurse practitioner. Aftab Cartwright Apr 10, 2017 14:39
[2017-04-10] MEDS: HYDROCORTISONE 10 MG TAB PO SCH (17:09)
[2017-04-10] MEDS ORDERED: FUROSEMIDE 20 MG/2 ML VIAL IV PUSH SCH (18:00)
--- NOTE | 2017-04-10 18:57 | HHI.NPPN ---
Subjective History of Present Illness 61-year-old with history of urinary stone Additional Remarks Patient had trach on trach o2, not in distress. Review of Systems General Constitutional: Fatigue Objective Data Data 04/10/17 04/11/17 19:00 07:00 Output Total 1375 ml Balance -1375 ml Output Urine Total 1375 ml Vital Signs Date Time Temp Pulse Resp B/P (MAP) Pulse Ox O2 Delivery O2 Flow Rate FiO2 04/10/17 16:31 97.5 88 20 114/61 (78) 100 04/10/17 12:22 97.7 91 20 119/72 (88) 99 04/10/17 10:00 99 04/10/17 08:40 99 Nasal Cannula 3.00 04/10/17 07:59 97.9 90 20 110/59 (76) 99 04/10/17 07:25 18 04/10/17 07:00 91 Trach Collar 6.00 35 04/10/17 04:07 97.7 96 22 117/66 (83) 99 04/10/17 03:27 94 04/10/17 02:28 91 Trach Collar 6.00 35 04/10/17 02:24 91 Trach Collar 6.00 35 04/10/17 00:00 98.8 92 22 131/64 (86) 99 04/09/17 22:01 95 Trach Collar 6.00 28 04/09/17 20:00 98.8 92 22 124/68 (86) 96 -: 04/09/17 1405 04/10/17 0950 Physical Exam General Appearance: Pale Eyes Eye Exam: Pupils Equal Throat Throat Exam: Oral Mucosa [place] & Moist Neck Neck Exam: Neck Supple Pulmonary Resp Exam: Clear Bilaterally Cardiology CV Exam: Normal Sinus Rhythm Gastrointestinal/Abdomen GI Exam: Non-Tender, Distended Extremeties Extremities Exam: Moderate Edema, Pitting Edema Neurologic Neuro Exam: Awake Assessment/Plan Problem List: (1) Acute renal failure ICD Codes: N17.9 - Acute kidney failure, unspecified Status: Acute Plan: Patient developed Hypotension,sepsis staph aureus respiratory failure and increase WBC. Had aspiration pneumonia, developed sepsis with ARF again creatinine declined slightly post hydration he also had retroperitoneal bleed Pseudomonas in sputum, with colonized airway 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 Patient had been on dialysis earlier in hospitalization. Recently given Albumin followed By Lasix 40 mg IV q12, as retaining fluids UOP improved with Lasix; however, stopped albumin/Lasix with increased in creatinine. On normal saline 50 cc and doing well, Lasix was given earlier Creatinine 2.0 -> 1.8. 1.6 Continue IVFs, closely monitor volume status.IVF 50 cc/hr Kidney function is stable nephrology to see him as needed On free water flushes 300 cc q 4: Na 139 (2) CKD (chronic kidney disease) stage 3, GFR 30-59 ml/min ICD Codes: N18.3 - Chronic kidney disease, stage 3 (moderate) Status: Chronic Plan: Ultrasound revealed chronic kidney disease there is no kidney stones (3) Diabetes ICD Codes: E11.9 - Type 2 diabetes mellitus without complications Plan: Continue to monitor (4) Distal end of ulna fracture, closed ICD Codes: S52.609A - Unspecified fracture of lower end of unspecified ulna, initial encounter for closed fracture Status: Acute Plan: Orthopedic is following Problem Qualifiers (1) Acute renal failure: Qualified Codes: N17.9 - Acute kidney failure, unspecified Laura Liao MD Apr 10, 2017 18:57
[2017-04-10] MEDS: ATORVASTATIN 10 MG TAB PO SCH (22:08)
[2017-04-11] VITALS (8 sets, daily range): BP systolic 116–182; BP diastolic 62–86; PULSE 67–98; RESP 18–20; TEMP 98.1–99.7; O2SAT 67–97
[2017-04-11] MEDS: oxyCODONE HCL ORAL CONC 5 MG/0.25 ML SYRINGE PO SCH ×6 (02:32→22:51)
[2017-04-11] MEDS: FREE WATER G-TUBE SCH ×6 (02:33→20:00)
[2017-04-11] MEDS: HYDROCORTISONE 10 MG TAB PO SCH ×2 (06:17→18:05)
[2017-04-11 07:52] LABS: HEMATOCRIT 26.9 % (39.0-51.0); MEAN CELL VOLUME 87.4 FL (80.0-100.0); MEAN CORPUSCULAR HEMOGLOBIN 28.3 PG (27.0-34.0); MEAN CORPUSCULAR HGB CONC 32.4 % (32.0-36.0); PLATELET COUNT 343 TH/MM3 (150-450); RED BLOOD COUNT 3.08 MIL/MM3 (4.50-5.90); RED CELL DISTRIBUTION WIDTH 16.6 % (11.6-17.2); REVIEW FLAG FINAL
[2017-04-11] MEDS: CHLORHEXIDINE 0.12% (ORAL KIT) 15 ML CUP MT SCH ×2 (08:00→20:00)
[2017-04-11] MEDS: INSULIN ASPART SUPPLEMENTAL SCALE SQ SCH ×3 (08:00→17:00)
[2017-04-11 08:23] LABS: ALT (GPT) 18 U/L (12-78); ANION GAP 9 MEQ/L (5-15); AST (GOT) 37 U/L (15-37); BICARBONATE 24.7 MEQ/L (21.0-32.0); BLOOD UREA NITROGEN 97 MG/DL (7-18); CHLORIDE 111 MEQ/L (98-107); GLOMERULAR FILTRATION RATE 48 ML/MIN (>89); POTASSIUM 3.8 MEQ/L (3.5-5.1); SODIUM (NA) 145 MEQ/L (136-145)
[2017-04-11 08:26] LABS: ALKALINE PHOSPHATASE 116 U/L (45-117); TOTAL BILIRUBIN ADULT 0.5 MG/DL (0.2-1.0)
[2017-04-11] MEDS: SODIUM CHLORIDE 0.9% FLUSH 10 ML FLUSH IV FLUSH SCH ×3 (09:00→21:00)
[2017-04-11] MEDS: INSULIN DETEMIR 100 UNITS/ML VIAL SQ SCH ×2 (09:00→22:29)
[2017-04-11] MEDS: COLLAGENASE OINT 30 GM TUBE TOPICAL SCH (09:00)
[2017-04-11] MEDS: QUEtiapine FUMARATE 25 MG TAB PO SCH (09:03)
[2017-04-11] MEDS: POTASSIUM CHLORIDE 25 MEQ EFFERVESCENT TAB PO SCH ×2 (09:03→22:51)
[2017-04-11] MEDS: TAMSULOSIN HCL 0.4 MG CAP PO SCH ×2 (09:03→21:00)
[2017-04-11] MEDS: COLCHICINE 0.6 MG TAB PO SCH (09:03)
[2017-04-11] MEDS: ATENOLOL 25 MG TAB PO SCH ×2 (09:03→22:50)
[2017-04-11] MEDS: CHOLESTYRAMINE 4 GM PACKET G-TUBE SCH ×2 (09:03→22:50)
[2017-04-11] MEDS: LACTOBACILLUS ACIDOPHILUS TAB PO SCH ×3 (09:03→18:04)
[2017-04-11] MEDS: LANSOPRAZOLE SOLUTAB 30 MG TAB NG SCH ×2 (09:03→22:50)
--- NOTE | 2017-04-11 10:49 | HHI.HCPN ---
Reason for visit a. To assist with evaluation and management of symptoms including: shortness of breath, pain, debility b. To assist medical decision maker(s) with: better understanding of current medical conditions; weighing benefits/burdens of medical treatment options; making medical treatment decisions. Subjective/Interval History Patient is in bed, awake and yelling for someone to come into his room. Patient stopped yelling when i entered his room. When asked what he needed, patient stated that he thought it was time to be moved and that he was feeling a " little anxious". Explained to patient that nursing staff is always watching him and that he does not need to get anxious. Assisted patient with moving his upper body towards the center on his bed. Patient is alert, oriented to self only and stated that he knows he is in a room alone somewhere- and that he is not sure of where he is. Reoriented to place, time and situation. Patient denies pain. Patient is afebrile. HR 90s. SBP 120s-180s. Patient currently capped, on room air. No respiratory distress. O2 saturation high 90s. Laboratory workup was living WBC 15.0, hemoglobin 8.7, hematocrit 26.9, platelet count 343, sodium 145 , potassium 3.8, BUN/creatinine 97/1.48, random glucose 75, protein 5.6, albumin 2.2. No recent imaging. Nephrology following. PT and OT following. Family/friend interactions No family at bedside . Advance Directives Living Will: Never completed Health Care Surrogate: Never completed Durable Power of Concrete Placement Equipment Operator: Never completed Advance Directive Specifics Health Care Surrogate(s): Healthcare proxys- Jabari-Davie Kerr - ; Son-Arnel Kerr- -cell -home . Documented care wishes: No known documented care wishes have been completed. . Objective Vital Signs Date Time Temp Pulse Resp B/P (MAP) Pulse Ox O2 Delivery O2 Flow Rate FiO2 04/11/17 09:08 97 Nasal Cannula 2.00 04/11/17 08:00 92 04/11/17 08:00 99.4 92 18 136/70 (92) 94 04/11/17 04:00 98.9 81 18 182/86 (118) 97 04/11/17 00:00 98.6 87 20 134/79 (97) 95 04/10/17 22:06 94 126/78 (94) 04/10/17 21:00 81 04/10/17 20:05 Trach Collar 04/10/17 20:00 98.0 86 20 127/64 (85) 98 04/10/17 19:49 99 Nasal Cannula 3.00 04/10/17 16:31 97.5 88 20 114/61 (78) 100 04/10/17 12:22 97.7 91 20 119/72 (88) 99 Intake & Output 04/11/17 04/11/17 07:00 19:00 Intake Total 1000 ml Output Total 1850 ml Balance -850 ml IV Total 1000 ml Output Urine Total 1850 ml Physical Exam CONSTITUTIONAL/GENERAL: This is an ill-looking patient, in no acute distress or discomfort, awake and yelling for someone. TUBES/LINES/DRAINS: PEG tube, #6Tracheostomy-capped on room air, PIVs, FC SKIN: No jaundice. Ecchymoses on upper extremities. Sacral pressure wound and L heel pressure injury per EMR. Wound to anterior neck - tracheostomy insertion area with a foam dressing. Not diaphoretic. HEAD: Atraumatic. Normocephalic. EYES: Pupils equal and round, slight reaction.No scleral icterus. No injection or drainage. Fundi not examined. ENT: Trached. Nose without bleeding or purulent drainage. Moist oral mucosa. NECK: Trachea midline. #6 Tracheostomy midline- currently capped. - tracheostomy insertion area with a foam dressing. CARDIOVASCULAR: Regular rate and rhythm without murmurs, gallops, or rubs. No JVD. RESPIRATORY/CHEST: Symmetrical, rhonchi and wheezy to auscultation. Small amount of yellowish colored secretions around trach . Breath sounds equal bilaterally. Patient is currently capped on room air. O2 sats high 90s. GASTROINTESTINAL: Abdomen soft, non-tender, nondistended. No guarding. Bowel sounds present. Nepro-Goal infusing at 55ml/hr- Tolerating. Liquid stool GENITOURINARY: Without palpable bladder distension. Sloan catheter in with clear urine. MUSCULOSKELETAL: Gout tophi to fingers, knees, elbows and both ankles. No edema to all 4 extremities NEUROLOGICAL: Trached. Patient sleepy but easily arousable and verbal. Followed command with all 4 extremities. PSYCHIATRIC: No obvious anxiety/depression. no apparent hallucinations or other psychotic thought process. . Diagnostic Tests Laboratory Laboratory Tests Test 04/09/17 12:22 04/09/17 14:05 04/10/17 09:50 04/11/17 07:00 Blood Urea Nitrogen 103 MG/DL (7-18) 107 MG/DL (7-18) 97 MG/DL (7-18) Creatinine 1.68 MG/DL (0.60-1.30) 1.61 MG/DL (0.60-1.30) 1.48 MG/DL (0.60-1.30) Random Glucose 81 MG/DL (74-106) 109 MG/DL (74-106) 75 MG/DL (74-106) Calcium Level 8.3 MG/DL (8.5-10.1) 8.4 MG/DL (8.5-10.1) 8.1 MG/DL (8.5-10.1) Sodium Level 139 MEQ/L (136-145) 142 MEQ/L (136-145) 145 MEQ/L (136-145) Potassium Level 4.2 MEQ/L (3.5-5.1) 3.9 MEQ/L (3.5-5.1) 3.8 MEQ/L (3.5-5.1) Chloride Level 105 MEQ/L (98-107) 106 MEQ/L (98-107) 111 MEQ/L (98-107) Carbon Dioxide Level 22.0 MEQ/L (21.0-32.0) 23.5 MEQ/L (21.0-32.0) 24.7 MEQ/L (21.0-32.0) Anion Gap 12 MEQ/L (5-15) 13 MEQ/L (5-15) 9 MEQ/L (5-15) Estimat Glomerular Filtration Rate 42 ML/MIN (>89) 44 ML/MIN (>89) 48 ML/MIN (>89) White Blood Count 11.5 TH/MM3 (4.0-11.0) 15.0 TH/MM3 (4.0-11.0) Red Blood Count 2.96 MIL/MM3 (4.50-5.90) 3.08 MIL/MM3 (4.50-5.90) Hemoglobin 8.8 GM/DL (13.0-17.0) 8.7 GM/DL (13.0-17.0) Hematocrit 25.7 % (39.0-51.0) 26.9 % (39.0-51.0) Mean Corpuscular Volume 86.8 FL (80.0-100.0) 87.4 FL (80.0-100.0) Mean Corpuscular Hemoglobin 29.7 PG (27.0-34.0) 28.3 PG (27.0-34.0) Mean Corpuscular Hemoglobin Concent 34.2 % (32.0-36.0) 32.4 % (32.0-36.0) Red Cell Distribution Width 16.2 % (11.6-17.2) 16.6 % (11.6-17.2) Platelet Count 514 TH/MM3 (150-450) 343 TH/MM3 (150-450) Mean Platelet Volume 9.0 FL (7.0-11.0) 8.5 FL (7.0-11.0) Neutrophils (%) (Auto) 88.7 % (16.0-70.0) Lymphocytes (%) (Auto) 3.8 % (9.0-44.0) Monocytes (%) (Auto) 5.0 % (0.0-8.0) Eosinophils (%) (Auto) 2.0 % (0.0-4.0) Basophils (%) (Auto) 0.5 % (0.0-2.0) Neutrophils # (Auto) 10.2 TH/MM3 (1.8-7.7) Lymphocytes # (Auto) 0.4 TH/MM3 (1.0-4.8) Monocytes # (Auto) 0.6 TH/MM3 (0-0.9) Eosinophils # (Auto) 0.2 TH/MM3 (0-0.4) Basophils # (Auto) 0.1 TH/MM3 (0-0.2) CBC Comment AUTO DIFF Differential Total Cells Counted 100 Neutrophils % (Manual) 73 % (16-70) Band Neutrophils % 9 % (0-6) Lymphocytes % 3 % (9-44) Monocytes % 2 % (0-8) Eosinophils % 2 % (0-4) Basophils % 1 % (0-2) Neutrophils # (Manual) 10.6 TH/MM3 (1.8-7.7) Metamyelocytes 5 % (0-1) Myelocytes 5 % (0-0) Differential Comment FINAL DIFF MANUAL Toxic Vacuolation PRESENT (NONE SEEN) Dohle Bodies PRESENT (NONE SEEN) Platelet Estimate HIGH (NORMAL) Platelet Morphology Comment NORMAL (NORMAL) Tear Drop Cells 1+ (NORMAL) Acanthocytes (NORMAL) B-Type Natriuretic Peptide 322 PG/ML (0-100) Total Protein 5.6 GM/DL (6.4-8.2) Albumin 2.2 GM/DL (3.4-5.0) Alkaline Phosphatase 116 U/L (45-117) Aspartate Amino Transf (AST/SGOT) 37 U/L (15-37) Alanine Aminotransferase (ALT/SGPT) 18 U/L (12-78) Total Bilirubin 0.5 MG/DL (0.2-1.0) Result Diagram: 04/11/17 0700 04/11/17 0700 Procedures 01/25/2017- Retrievable IVC Filter placement 01/26/17-lumbar puncture with fluoroscopy-by interventional radiology 02/01/17- lumbar puncture fluoroscopy by interventional radiology 02/10/17- Endotracheal Intubation 02/10/17-left IJ central venous line placed 02/10/17-left femoral arterial line placed 02/11/17-Diagnostic and therapeutic bronchoscopy with bronchoalveolar lavage 02/11/17-Left upper extremity incision and debridement with excision of septic cephalic vein 02/13/17- Extubated 02/20/17- endotracheal intubation 02/20/17- Left subclavian central line placement 02/20/17-Right radial A-line placement 02/22/17-EGD/colonoscopy 02/28/17-right radial a line 02/28/17- Endotracheal intubation 02/28/17- right sided introducer catheter placement 02/28/17- Right IJ central line placement 02/28/17-Right chest tube placement 02/28/17- Embolization of inferior and superior sacral branches of right internal iliac artery 03/01/17- Hemodialysis access catheter 03/03/17-Right IJ central line placement 03/11/17-Extubated 03/13/17- Endotracheal intubation 03/14/17-Tracheostomy placement 03/15/17-PEG tube placement . Assessment and Plan Disease Oriented Problem List: (1) Acute respiratory failure (2) Septic shock (3) Aspiration pneumonia (4) Acute renal failure (5) CKD (chronic kidney disease) stage 3, GFR 30-59 ml/min (6) Cardiomyopathy (7) DVT of lower extremity, bilateral (8) Thrombophlebitis arm (9) Diabetes mellitus (10) Gout (11) HTN (hypertension) (12) Hyperlipidemia Symptom Scale: (1) Shortness of breath 0-10 Scale: Unable to quantify Comment: Trach downsized to #6. Ongoing capping trials. Currently capped on 1LNC . (2) Debility 0-10 Scale: Unable to quantify Comment: Progressive. . (3) Pain 0-10 Scale: Unable to quantify Comment: History of falls, gout, arthritis, and currently bedbound. . Pertinent Non-Medical Issues Psychosocial:Patient was born and raised in [place], [place]. Patient was once for 20 years, now and has 2 adult sons. 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 He recently resigned due to failing health. Spiritual: No sikh affiliation Legal: Per [place] statutes, in the absence of written advanced directives healthcare proxy decision making falls to the patient's 2 adult children. Patient's son (Davie) lives locally and wishes to participate in the role of the healthcare proxy decision maker. Palliative care has attempted to contact Arnel, has not call back. Patient`s sister Deb and patients brother verbalized that they have been updating Arnel on patient`s medical status. Ethical issues impacting care: No known ethical issues impacting care at this time. . Important Contacts Son-Davie Kerr - Son-Arnel Kerr- -cell -home Sister-Deb Curry . Prognosis Mr Kerr is a 62 years old male with a past medical history of hypertension, asthma, diabetes, hyperlipidemia, chronic kidney disease and gout. Patient presented to the ED on 01/22/17 complaining of bilateral knee and right arm pain after a mechanical fall 4 or 5 days prior to coming to the ER. Clinical course complicated with increased weakness leading to numerous diagnostic work ups for possible transverse myelitis, DVTs, retroperitoneal hematoma, aspiration pneumonia, intubation x 4 times, septic and hemorrhagic shock requiring support with pressors and multiple pRBC, FFP transfusions as well as platelets and cryo , renal failure requiring hemodialysis and sacral wound Given ongoing comorbidities, and prolonged hospitalization, patient remains at risk for further complications, deterioration and decline. Code Status: Full Code Plan PLAN: Legal decision maker: Patient is currently trached on TPierce and is not able to make any medical decisions for himself at this time. Patient has 2 adult sons Davie Kerr and Arnel Kerr. According to [place] Statute, his two aforementioned sons will serve as his health care proxys. Patient`s son Davie is acting in the role of HCP decision maker independently at this time given that he is the one who is reasonably available for consultation. Goals: 04/11/17- Remain Aggressive. Patient On room air saturating in the high 90s. SSI pending-Case management following case. CODE STATUS: Full Code SYMPTOMS: * Shortness of breath: Multifactorial. Patient has had aspiration pneumonia. Patient has been intubated 4 times this hospitalization. Patient has a tracheostomy. On duonebs. Patient is also on Hydrocortisone 50mg q 6 hours. Accounting Recruiter following. Trach downsized to a 6. Patient is currently capped on room air. No respiratory distress noted, O2 saturation high 90s. Patient stated that he gets a little anxious- Patient is on Xanax 0.125mg q 6 prn. Last dose 04/10/17 @ 0400hrs. Wound care following on wound to tracheostomy insertion area. * Pain: Patient presented initially complaining of pain to right wrist and bilateral knees after a mechanical fall. Patient has a history of gout, arthritis, multiple falls and is currently bedbound. Patient on Oxycodone 5mg q 4 hours ATC. Patient also on Hydrocortisone. Denies pain today. * Debility: Progressive. Patient has had decline in his health for the past 4 months, including progressively increased weakness and difficulty ambulating and prolonged hospitalization with multiple setbacks. Patient remains at high risk for further physical deconditioning and debility. PT and OT following with patient. PT and OT following. Patient will benefit from getting OOB to a stretcher chair . PT and OT following. Recommending Speech therapy consultation if patient tolerates Trials. Palliative care will continue to follow the patient during hospital course as condition evolves, to assist patient/decision-maker with understanding of their medical conditions, weighing benefits/burdens of treatment options, for clarification of goals of treatment. Additionally will assist with any symptoms of palliative concern. . Attestation To help prompt me to consider important information that might be impacting today's encounter and assessment, information from prior notes written by myself or my colleagues may have been "brought forward" into today's note. My signature on this note, however, is an attestation that I personally performed the exam, history, and/or decision-making noted today, and, unless otherwise indicated, the interactions with patient, family, and staff as well as the review of records all occurred today. I also attest that the listed assessment and stated plan reflect my best clinical judgment today based on the combination of historical information, prior notes, and today's exam/ interactions. When time spent is documented, it refers only to time spent today by the signer, or if indicated, combined time spent today by collaborating physician/nurse practitioner. Aftab Cartwright Apr 11, 2017 10:49
--- NOTE | 2017-04-11 16:00 | HHI.PR ---
Subjective Remarks awake and alert, ff some commands tolerating tube feedings occasionally hollers Objective Vitals Vital Signs Date Time Temp Pulse Resp B/P (MAP) Pulse Ox O2 Delivery O2 Flow Rate FiO2 04/11/17 12:00 99.7 88 18 127/65 (85) 95 04/11/17 09:08 97 Nasal Cannula 2.00 04/11/17 08:00 92 04/11/17 08:00 99.4 92 18 136/70 (92) 94 04/11/17 04:00 98.9 81 18 182/86 (118) 97 04/11/17 00:00 98.6 87 20 134/79 (97) 95 04/10/17 22:06 94 126/78 (94) 04/10/17 21:00 81 04/10/17 20:05 Trach Collar 04/10/17 20:00 98.0 86 20 127/64 (85) 98 04/10/17 19:49 99 Nasal Cannula 3.00 04/10/17 16:31 97.5 88 20 114/61 (78) 100 I/O 04/10/17 04/10/17 04/10/17 04/11/17 04/11/17 04/11/17 07:00 15:00 23:00 07:00 15:00 23:00 Intake Total 1632 ml 1000 ml Output Total 1000 ml 1375 ml 1850 ml Balance 632 ml -375 ml -1850 ml IV Total 1137 ml 1000 ml Tube Feeding 495 ml Output Urine Total 1000 ml 1375 ml 1850 ml Result Diagram: 04/11/17 0700 04/11/17 0700 Imaging Last Impressions Chest X-Ray 04/06/17 0000 Signed Impressions: Service Date/Time: Thursday, April 06, 2017 14:50 - CONCLUSION: Left pleural effusion and basilar density. Armando Dodd MD Renal Ultrasound 04/02/17 0000 Signed Impressions: Service Date/Time: Sunday, April 02, 2017 16:59 - CONCLUSION: Limited exam with the left kidney being unable to be evaluated in the bladder not distended. There do appear to be multiple shadowing stones at the right kidney without hydronephrosis. Angelo Manzo MD Wrist X-Ray 03/27/17 0000 Signed Impressions: Service Date/Time: Monday, March 27, 2017 13:21 - CONCLUSION: 1. No acute fracture is identified. A portion of the previously documented distal ulna fracture remains visualized. 2. 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 Angelo Allen MD Aortography 02/28/17 0000 Signed Impressions: Service Date/Time: Tuesday, February 28, 2017 08:01 - CONCLUSION: 1. Active hemorrhage from distal right lateral sacral and iliolumbar branches successfully coil and Gelfoam embolized, as above. Juan Bhakta MD Abdomen/Pelvis CT 02/28/17 0000 Signed Impressions: Service Date/Time: Tuesday, February 28, 2017 06:51 - CONCLUSION: 1. The right retroperitoneal hematoma has increased in size, as above. There are 2 serpiginous arterially enhancing structures visualized, one in the right psoas muscle and another extending into the hematoma at the right iliac fossa. These could represent sites of continued active bleeding. 2. Stable moderate size left and small right pleural effusion with associated compressive atelectasis. 3. Stable small volume of free fluid in the abdomen and pelvis. There is also anasarca. The findings concerning the retroperitoneal hematoma were discussed with Dr. Aguiar via telephone at approximately 7: 10 AM on 02/28/2017. Angelo Allen MD Chest CT 02/27/17 0000 Signed Impressions: Service Date/Time: Monday, February 27, 2017 18:12 - CONCLUSION: 1. Bilateral pleural effusions with bibasilar atelectasis, left greater than right. Tom Sanchez MD Abdomen X-Ray 02/26/17 Signed Impressions: Service Date/Time: Sunday, February 26, 2017 14:52 - CONCLUSION: 1. Nonobstructive bowel gas pattern. Juan Bhakta MD Upper Extremity Ultrasound 02/10/17 0000 Signed Impressions: Service Date/Time: Friday, February 10, 2017 18:46 - CONCLUSION: Occlusive thrombus in the cephalic and basilic veins. Benjamin Person MD Lung Scan- Nuclear Medicine 02/10/17 0000 Signed Impressions: Service Date/Time: Friday, February 10, 2017 22:17 - CONCLUSION: Low probability pulmonary embolism. Candido Patton MD Head CT 02/10/17 Signed Impressions: Service Date/Time: Friday, February 10, 2017 23:51 - CONCLUSION: Negative noncontrast CT brain. Candido Patton MD Lumbar Puncture Fluoroscopy 02/01/17 Signed Impressions: Service Date/Time: January 09:35 - CONCLUSION: Uncomplicated fluoroscopically guided lumbar puncture. CSF was clear. Nabeel Peralta MD Head Magnetic Resonance Angiography 01/27/17 Signed Impressions: Service Date/Time: Friday, January 27, 2017 10:33 - CONCLUSION: No intracranial vascular abnormality is identified. There is no aneurysm visualized. Angelo Allen MD IVC Filter Placement X-Ray 01/25/17 Signed Impressions: Service Date/Time: January 10:29 - CONCLUSION: Uncomplicated inferior vena cava filter placement as above. Yung Fowler MD Thoracic Spine MRI 01/24/17 Signed Impressions: Service Date/Time: Tuesday, January 24, 2017 22:29 - CONCLUSION: 1. Mild degenerative spondylosis most prominently at T11-L1 with slight effacement of the anterior thecal sac and left lateral recess. No significant neural foraminal stenosis. 2. No acute fracture. Juan Bhakta MD Lumbar Spine MRI 01/23/17 Signed Impressions: Service Date/Time: Monday, January 23, 2017 17:01 - CONCLUSION: 1. At L4-5 is a broad-based disc protrusion with severe central canal and lateral recess stenosis and flattening of the exiting right L4 nerve root. 2. L5-S1 there is a disc protrusion and moderate stenosis with flattening of the exiting L5 nerve roots bilaterally. 3. At L3-4 there is a moderate to severe central stenosis and lateral recess stenosis with mild foraminal stenosis. 4. No acute fracture or spondylolisthesis. Trace Holloway MD Lower Extremity Ultrasound 01/23/17 Signed Impressions: Service Date/Time: Monday, January 23, 2017 09:53 - CONCLUSION: Bilateral focal lower extremity DVT involving the posterior tibial veins. Angelo Garrido MD Cervical Spine MRI 01/23/17 Signed Impressions: Service Date/Time: Monday, January 23, 2017 17:01 - CONCLUSION: 1. Multilevel cervical spine degenerative changes as above. 2. Mild degrees of spinal stenosis at C3/C4-C6/C7. No cord compression or cord signal abnormality. 3. Age indeterminate left paracentral/foraminal disc protrusion at C6/C7. 4. Multilevel foraminal stenosis, most severe on the left at C6/C7. Please see individual levels above. 5. No fracture or subluxation of the cervical spine. Angelo Garrido MD Brain MRI 01/23/17 0000 Signed Impressions: Service Date/Time: Monday, January 23, 2017 17:01 - CONCLUSION: 1. No acute stroke or other acute intracranial abnormality demonstrated. 2. Moderate severity chronic white matter changes, nonspecific but most likely related to chronic small vessel disease. 3. Few scattered tiny lacunar infarcts of the brainstem. 4. Given the findings are not entirely specific, clinical evaluation for possible multiple sclerosis recommended. Angelo Garrido MD Knee X-Ray 01/22/172053 Signed Impressions: Service Date/Time: Sunday, January 22, 2017 21:17 - CONCLUSION: 1. Evidence of moderate to large joint effusion. 2. No acute fracture or malalignment. 3. Mild 3 compartment osteoarthritic change. Benjamin Person MD Hip and Pelvis X-Ray [id number]/22/172053 Signed Impressions: Service Date/Time: Sunday, January 22, 2017 21:10 - CONCLUSION: 1. Mild to moderate degenerative change of both hips with no acute fracture or malalignment. There is flattening and remodeling of the right humeral head. Benjamin Person MD Objective Remarks awake and alerttrach in place no thrush trac in place capped no rales regular rhythm PEG in place palmer in place extremities no edema Procedures IVC filter placement 01/25/2017 LP 01/26/2017 Urinary Catheter: Yes Assessment to: Continue Palmer insert reason: Prolonged Immobilization Date of Insertion: Feb 20, 2017 Date of Insertion: Mar 03, 2017 Line: Central Venous Catheter Side: Right Location: Internal, Jugular A/P Problem List: (1) Transverse myelitis ICD Code: G37.3 - Acute transverse myelitis in demyelinating disease of central nervous system Status: Acute (2) Septic shock ICD Code: A41.9 - Sepsis, unspecified organism; R65.21 - Severe sepsis with septic shock Status: Resolved (3) HCAP (healthcare-associated pneumonia) ICD Code: J18.9 - Pneumonia, unspecified organism (4) Acute respiratory failure with hypoxia and hypercarbia ICD Code: J96.01 - Acute respiratory failure with hypoxia; J96.02 - Acute respiratory failure with hypercapnia Status: Resolved (5) Hyperlipidemia ICD Code: E78.5 - Hyperlipidemia, unspecified Status: Chronic (6) HTN (hypertension) ICD Code: I10 - Essential (primary) hypertension (7) DVT of lower extremity, bilateral ICD Code: I82.403 - Acute embolism and thrombosis of unspecified deep veins of lower extremity, bilateral (8) Diabetes mellitus with hyperglycemia ICD Code: E11.65 - Type 2 diabetes mellitus with hyperglycemia (9) Hypocalcemia ICD Code: E83.51 - Hypocalcemia (10) Hypernatremia ICD Code: E87.0 - Hyperosmolality and hypernatremia (11) Hypokalemia ICD Code: E87.6 - Hypokalemia (12) Acute metabolic encephalopathy ICD Code: G93.41 - Metabolic encephalopathy (13) Quadriparesis ICD Code: G82.50 - Quadriplegia, unspecified Status: Acute (14) BREEZY (acute kidney injury) ICD Code: N17.9 - Acute kidney failure, unspecified (15) Diarrhea ICD Code: R19.7 - Diarrhea, unspecified (16) Abdominal pain ICD Code: R10.9 - Unspecified abdominal pain (17) Hypoglycemia ICD Code: E16.2 - Hypoglycemia, unspecified (18) Urinary retention ICD Code: R33.9 - Retention of urine, unspecified (19) Acute hypoxemic respiratory failure ICD Code: J96.01 - Acute respiratory failure with hypoxia (20) Sepsis ICD Code: A41.9 - Sepsis, unspecified organism Assessment and Plan Patient is a 62-year-old male with primary medical history of HTN, gout who came into the hospital for bilateral knee pain after a mechanical fall. Patient was found to have oblique fracture through distal right ulna. He was seen by orthopedic MD and recommended non operative treatment. Patient has been experiencing gradual lower extremity weakness and upper extremity weakness. A/P Acute on chronic kidney injury good urine output creatinine stabilizing. on gentle IVF NS 50 cc/hr nephrology ff ff BMP S/P Respiratory failure- trial of trac capping since this am 04/10 - so far tolerating well- good sats- RT ff CMP- EF 20-25%. continue meds monitor on gentle IVF hydration Lasix on hold for now REcent history of transverse Myelitis PT daily S/P Recent shock with adrenal insufficiency on solucortef bid- change to po 10 mg bid Diarrhea- C diff negative. gentle NS HCAP S/P Tx DM- ff blood sugars S/P IVC filter for Bilateral DVT Problem Qualifiers (1) Hyperlipidemia: Qualified Codes: E78.5 - Hyperlipidemia, unspecified (2) HTN (hypertension): Qualified Codes: I10 - Essential (primary) hypertension (3) Diabetes mellitus with hyperglycemia: Qualified Codes: E11.65 - Type 2 diabetes mellitus with hyperglycemia (4) Diarrhea: Qualified Codes: A09 - Infectious gastroenteritis and colitis, unspecified (5) Abdominal pain: Qualified Codes: R10.84 - Generalized abdominal pain (6) Sepsis: Qualified Codes: A41.9 - Sepsis, unspecified organism Yovanny Townsend MD Apr 11, 2017 16:00
[2017-04-11] MEDS: SODIUM CHLOR 0.9% 1000 ML INJ 1,000 ML IV SCH (18:06)
[2017-04-11] MEDS: ATORVASTATIN 10 MG TAB PO SCH (22:50)
[2017-04-11] MEDS: RESP: ALBUTEROL 2.5 MG/3 ML NEB (PRN) NEB (23:38)
[2017-04-12] VITALS (14 sets, daily range): BP systolic 116–131; BP diastolic 61–71; PULSE 90–100; RESP 18–23; TEMP 98–101.2; O2SAT 93–100
[2017-04-12] MEDS: oxyCODONE HCL ORAL CONC 5 MG/0.25 ML SYRINGE PO SCH ×6 (02:53→21:31)
[2017-04-12] MEDS: FREE WATER G-TUBE SCH ×5 (03:11→18:40)
[2017-04-12] MEDS: HYDROCORTISONE 10 MG TAB PO SCH ×2 (06:48→18:40)
[2017-04-12] MEDS: CHLORHEXIDINE 0.12% (ORAL KIT) 15 ML CUP MT SCH ×2 (08:00→20:00)
[2017-04-12] MEDS: INSULIN ASPART SUPPLEMENTAL SCALE SQ SCH ×3 (08:00→21:00)
[2017-04-12] MEDS: COLLAGENASE OINT 30 GM TUBE TOPICAL SCH (09:00)
[2017-04-12] MEDS: SODIUM CHLORIDE 0.9% FLUSH 10 ML FLUSH IV FLUSH SCH ×3 (09:00→21:34)
[2017-04-12] MEDS: INSULIN DETEMIR 100 UNITS/ML VIAL SQ SCH ×2 (09:00→21:00)
[2017-04-12] MEDS: POTASSIUM CHLORIDE 25 MEQ EFFERVESCENT TAB PO SCH ×2 (09:51→21:33)
[2017-04-12] MEDS: LANSOPRAZOLE SOLUTAB 30 MG TAB NG SCH ×2 (09:51→21:33)
[2017-04-12] MEDS: LACTOBACILLUS ACIDOPHILUS TAB PO SCH ×3 (09:51→18:40)
[2017-04-12] MEDS: ATENOLOL 25 MG TAB PO SCH ×2 (09:51→21:33)
[2017-04-12] MEDS: QUEtiapine FUMARATE 25 MG TAB PO SCH (09:51)
[2017-04-12] MEDS: CHOLESTYRAMINE 4 GM PACKET G-TUBE SCH ×2 (09:51→21:33)
[2017-04-12] MEDS: TAMSULOSIN HCL 0.4 MG CAP PO SCH ×2 (09:51→21:33)
[2017-04-12] MEDS: HYOSCYAMINE SOLN 0.125 MG/ML 15 ML BTL G-TUBE PRN (10:09)
[2017-04-12] MEDS: RESP: ALBUTEROL 2.5 MG/3 ML NEB (PRN) NEB (10:19)
--- NOTE | 2017-04-12 12:27 | HHI.PR ---
Subjective Remarks opened eyes to call of name appears more tachypneic tolerating TF low grade fever secretions yellowish still having lots of loose stools- d/w staff- looks like TF diarrhea failed trach cap trials Objective Vitals Vital Signs Date Time Temp Pulse Resp B/P (MAP) Pulse Ox O2 Delivery O2 Flow Rate FiO2 04/12/17 10:00 Trach Collar 6.00 28 T-Piece 04/12/17 08:10 96 T-piece 6.00 40 04/12/17 08:00 99.0 96 18 126/61 (82) 98 04/12/17 07:20 90 04/12/17 05:07 98.2 95 20 116/71 (86) 99 04/12/17 00:55 99 04/12/17 00:30 98.0 100 20 116/62 (80) 93 04/11/17 23:40 94 T-piece 5.00 28 04/11/17 21:00 98.1 98 20 116/62 (80) 95 04/11/17 18:00 Trach Collar 28 T-Piece 04/11/17 16:00 98.4 67 18 123/73 (90) 67 I/O 04/11/17 04/11/17 04/11/17 04/12/17 04/12/17 04/12/17 07:00 15:00 23:00 07:00 15:00 23:00 Intake Total 500 ml Output Total 1850 ml 1250 ml Balance -1850 ml -750 ml IV Total 500 ml Output Urine Total 1850 ml 1250 ml Result Diagram: 04/11/17 0700 04/11/17 0700 Imaging Last Impressions Chest X-Ray 04/06/17 0000 Signed Impressions: Service Date/Time: Thursday, April 06, 2017 14:50 - CONCLUSION: Left pleural effusion and basilar density. Armando Dodd MD Renal Ultrasound 04/02/17 0000 Signed Impressions: Service Date/Time: Sunday, April 02, 2017 16:59 - CONCLUSION: Limited exam with the left kidney being unable to be evaluated in the bladder not distended. There do appear to be multiple shadowing stones at the right kidney without hydronephrosis. Angelo Manzo MD Wrist X-Ray 03/27/17 0000 Signed Impressions: Service Date/Time: Monday, March 27, 2017 13:21 - CONCLUSION: 1. No acute fracture is identified. A portion of the previously documented distal ulna fracture remains visualized. 2. 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 Angelo Allen MD Aortography 02/28/17 0000 Signed Impressions: Service Date/Time: Tuesday, February 28, 2017 08:01 - CONCLUSION: 1. Active hemorrhage from distal right lateral sacral and iliolumbar branches successfully coil and Gelfoam embolized, as above. Juan Bhakta MD Abdomen/Pelvis CT 02/28/17 0000 Signed Impressions: Service Date/Time: Tuesday, February 28, 2017 06:51 - CONCLUSION: 1. The right retroperitoneal hematoma has increased in size, as above. There are 2 serpiginous arterially enhancing structures visualized, one in the right psoas muscle and another extending into the hematoma at the right iliac fossa. These could represent sites of continued active bleeding. 2. Stable moderate size left and small right pleural effusion with associated compressive atelectasis. 3. Stable small volume of free fluid in the abdomen and pelvis. There is also anasarca. The findings concerning the retroperitoneal hematoma were discussed with Dr. Aguiar via telephone at approximately 7: 10 AM on 02/28/2017. Angelo Allen MD Chest CT 02/27/17 0000 Signed Impressions: Service Date/Time: Monday, February 27, 2017 18:12 - CONCLUSION: 1. Bilateral pleural effusions with bibasilar atelectasis, left greater than right. Tom Sanchez MD Abdomen X-Ray 02/26/17 Signed Impressions: Service Date/Time: Sunday, February 26, 2017 14:52 - CONCLUSION: 1. Nonobstructive bowel gas pattern. Juan Bhakta MD Upper Extremity Ultrasound 02/10/17 0000 Signed Impressions: Service Date/Time: Friday, February 10, 2017 18:46 - CONCLUSION: Occlusive thrombus in the cephalic and basilic veins. Benjamin Person MD Lung Scan- Nuclear Medicine 02/10/17 0000 Signed Impressions: Service Date/Time: Friday, February 10, 2017 22:17 - CONCLUSION: Low probability pulmonary embolism. Candido Patton MD Head CT 02/10/17 Signed Impressions: Service Date/Time: Friday, February 10, 2017 23:51 - CONCLUSION: Negative noncontrast CT brain. Candido Patton MD Lumbar Puncture Fluoroscopy 02/01/17 Signed Impressions: Service Date/Time: January 09:35 - CONCLUSION: Uncomplicated fluoroscopically guided lumbar puncture. CSF was clear. Nabeel Peralta MD Head Magnetic Resonance Angiography 01/27/17 Signed Impressions: Service Date/Time: Friday, January 27, 2017 10:33 - CONCLUSION: No intracranial vascular abnormality is identified. There is no aneurysm visualized. Angelo Allen MD IVC Filter Placement X-Ray 01/25/17 Signed Impressions: Service Date/Time: January 10:29 - CONCLUSION: Uncomplicated inferior vena cava filter placement as above. Yung Fowler MD Thoracic Spine MRI 01/24/17 Signed Impressions: Service Date/Time: Tuesday, January 24, 2017 22:29 - CONCLUSION: 1. Mild degenerative spondylosis most prominently at T11-L1 with slight effacement of the anterior thecal sac and left lateral recess. No significant neural foraminal stenosis. 2. No acute fracture. Juan Bhakta MD Lumbar Spine MRI 01/23/17 Signed Impressions: Service Date/Time: Monday, January 23, 2017 17:01 - CONCLUSION: 1. At L4-5 is a broad-based disc protrusion with severe central canal and lateral recess stenosis and flattening of the exiting right L4 nerve root. 2. L5-S1 there is a disc protrusion and moderate stenosis with flattening of the exiting L5 nerve roots bilaterally. 3. At L3-4 there is a moderate to severe central stenosis and lateral recess stenosis with mild foraminal stenosis. 4. No acute fracture or spondylolisthesis. Tarce Holloway MD Lower Extremity Ultrasound 01/23/17 Signed Impressions: Service Date/Time: Monday, January 23, 2017 09:53 - CONCLUSION: Bilateral focal lower extremity DVT involving the posterior tibial veins. Angelo Garrido MD Cervical Spine MRI 01/23/17 Signed Impressions: Service Date/Time: Monday, January 23, 2017 17:01 - CONCLUSION: 1. Multilevel cervical spine degenerative changes as above. 2. Mild degrees of spinal stenosis at C3/C4-C6/C7. No cord compression or cord signal abnormality. 3. Age indeterminate left paracentral/foraminal disc protrusion at C6/C7. 4. Multilevel foraminal stenosis, most severe on the left at C6/C7. Please see individual levels above. 5. No fracture or subluxation of the cervical spine. Angelo Garrido MD Brain MRI 01/23/17 0000 Signed Impressions: Service Date/Time: Monday, January 23, 2017 17:01 - CONCLUSION: 1. No acute stroke or other acute intracranial abnormality demonstrated. 2. Moderate severity chronic white matter changes, nonspecific but most likely related to chronic small vessel disease. 3. Few scattered tiny lacunar infarcts of the brainstem. 4. Given the findings are not entirely specific, clinical evaluation for possible multiple sclerosis recommended. Angelo Garrido MD Knee X-Ray 01/22/172053 Signed Impressions: Service Date/Time: Sunday, January 22, 2017 21:17 - CONCLUSION: 1. Evidence of moderate to large joint effusion. 2. No acute fracture or malalignment. 3. Mild 3 compartment osteoarthritic change. Benjamin Person MD Hip and Pelvis X-Ray 01/22/172053 Signed Impressions: Service Date/Time: Sunday, January 22, 2017 21:10 - CONCLUSION: 1. Mild to moderate degenerative change of both hips with no acute fracture or malalignment. There is flattening and remodeling of the right humeral head. Benjmain Person MD Objective Remarks awake and alert, tachypneic trach - on 28% no thrush + rhonchi/secretions regular rhythm PEG in place palmer in place extremities no edema Procedures IVC filter placement 01/25/2017 LP 01/26/2017 Date of Insertion: Feb 20, 2017 Date of Insertion: Mar 03, 2017 Line: Central Venous Catheter Side: Right Location: Internal, Jugular A/P Problem List: (1) Transverse myelitis ICD Code: G37.3 - Acute transverse myelitis in demyelinating disease of central nervous system Status: Acute (2) Septic shock ICD Code: A41.9 - Sepsis, unspecified organism; R65.21 - Severe sepsis with septic shock Status: Resolved (3) HCAP (healthcare-associated pneumonia) ICD Code: J18.9 - Pneumonia, unspecified organism (4) Acute respiratory failure with hypoxia and hypercarbia ICD Code: J96.01 - Acute respiratory failure with hypoxia; J96.02 - Acute respiratory failure with hypercapnia Status: Resolved (5) Hyperlipidemia ICD Code: E78.5 - Hyperlipidemia, unspecified Status: Chronic (6) HTN (hypertension) ICD Code: I10 - Essential (primary) hypertension (7) DVT of lower extremity, bilateral ICD Code: I82.403 - Acute embolism and thrombosis of unspecified deep veins of lower extremity, bilateral (8) Diabetes mellitus with hyperglycemia ICD Code: E11.65 - Type 2 diabetes mellitus with hyperglycemia (9) Hypocalcemia ICD Code: E83.51 - Hypocalcemia (10) Hypernatremia ICD Code: E87.0 - Hyperosmolality and hypernatremia (11) Hypokalemia ICD Code: E87.6 - Hypokalemia (12) Acute metabolic encephalopathy ICD Code: G93.41 - Metabolic encephalopathy (13) Quadriparesis ICD Code: G82.50 - Quadriplegia, unspecified Status: Acute (14) BREEZY (acute kidney injury) ICD Code: N17.9 - Acute kidney failure, unspecified (15) Diarrhea ICD Code: R19.7 - Diarrhea, unspecified (16) Abdominal pain ICD Code: R10.9 - Unspecified abdominal pain (17) Hypoglycemia ICD Code: E16.2 - Hypoglycemia, unspecified (18) Urinary retention ICD Code: R33.9 - Retention of urine, unspecified (19) Acute hypoxemic respiratory failure ICD Code: J96.01 - Acute respiratory failure with hypoxia (20) Sepsis ICD Code: A41.9 - Sepsis, unspecified organism Assessment and Plan Patient is a 62-year-old male with primary medical history of HTN, gout who came into the hospital for bilateral knee pain after a mechanical fall. Patient was found to have oblique fracture through distal right ulna. He was seen by orthopedic MD and recommended non operative treatment. Patient has been experiencing gradual lower extremity weakness and upper extremity weakness. A/P Acute on chronic Respiratory failure-did not tolerate capping yesterday now on 40% Tachypneic with labored breathing - this am REcurrent Pneumonia HCAP- now low grade fever, leukocystosis, greenish sputum worsening pleural effusion left > R Leukocytosis - Heplock IVF RT ff check CXR- worsening effusion more on the left, lasix 40 mg IV x 1 then q 12 monitor closely- may need to be placed back on vent- if no improvement- may go into failure/fatigue d/w Dr. Estrada. bronchoscopy if atelectasis but will do CT of the chest first - -tap if significant - hopefully not empyema previous sputum- persistent PSeudomonas S/P course of Ceftazidime (I). resistant to zosyn. Sensitive to Levaquin but allergy lsited will reconsult ID service for recommendation [place] [facility]- may require intubation CMP- EF 20-25%. continue meds- tachypneic this am DC gentle hydration CXR reviewed- worsening effusion give 40 mg IV Lasix THEN Q 12 Acute on chronic kidney injury good urine output Heplock IVF- tachypneic nephrology ff ff BMP on diuretics HYpernatremia- gentle free water /GT REcent history of transverse Myelitis PT daily S/P Recent shock with adrenal insufficiency on solucortef bid- PEG 10 mg bid Diarrhea- C diff negative. will try benefiber with tube feedings DM- ff blood sugars S/P IVC filter for Bilateral DVT will hold tube feedings for now - [place] [facility] D/w Dr. Puente- director of food and nutrition consult Problem Qualifiers (1) Hyperlipidemia: Qualified Codes: E78.5 - Hyperlipidemia, unspecified (2) HTN (hypertension): Qualified Codes: I10 - Essential (primary) hypertension (3) Diabetes mellitus with hyperglycemia: Qualified Codes: E11.65 - Type 2 diabetes mellitus with hyperglycemia (4) Diarrhea: Qualified Codes: A09 - Infectious gastroenteritis and colitis, unspecified (5) Abdominal pain: Qualified Codes: R10.84 - Generalized abdominal pain (6) Sepsis: Qualified Codes: A41.9 - Sepsis, unspecified organism Yovanny Townsend MD Apr 12, 2017 12:27
[2017-04-12] MEDS ORDERED: FUROSEMIDE 40 MG/4 ML VIAL IV PUSH ONE (13:30)
--- NOTE | 2017-04-12 13:40 | RADRPT ---
EXAM DATE/TIME: 04/12/2017 10:59 [facility] COMPARISON: CHEST SINGLE AP, April 06, 2017, 14:50. INDICATIONS : Congestion short of breath. MEDICAL HISTORY : Hypertension. Renal calculi. Arthritis. Apnea. Dyspnea. Abdominal pain.Nausea/vomiting. Renal disease . Gout. Paresthesia. Diabetes. Gait problems. ESBL. SURGICAL HISTORY : Nasal surgery. Stents in kidneys for stones.tracheotomy. ENCOUNTER: Subsequent ACUITY: 1 month PAIN SCORE: 6/10 LOCATION: Bilateral chest FINDINGS: There is persisting consolidation in the left lower lobe with loss of delineation the entire left hem idiaphragm. There is also new hazy opacity in the left chest extending upper one third suggesting ei ther new infiltrates or large pleural effusion. Right lung is clear. Tracheostomy in place. Heart is normal in size. CONCLUSION: New hazy opacity involving most of the left hemithorax suggesting either large pleural effusion or de veloping infiltrates. Stable left lower lung consolidation. Candido Patton MD on April 12, 2017 at 13:37 Board Certified Radiologist. This report was verified electronically.
[2017-04-12 13:42] LABS: BLOOD GAS BASE EXCESS 0.4 mmol/L (-2-2); BLOOD GAS CARBOXYHEMOGLOBIN 2.4 % (0-4); BLOOD GAS HCO3 24 mmol/L (22-26); BLOOD GAS O2 HGB SATURATION 89 % (90-100); BLOOD GAS OXYGEN CONTENT 11.8 Vol % (12.0-20.0); BLOOD GAS PCO2 35 mmHg (38-42); BLOOD GAS PO2 60 mmHg (61-120); BLOOD GAS TOTAL HGB 9.4 G/DL (12.0-16.0); TEMP CORR TO 98.6
[2017-04-12 13:43] LABS: CRITICAL VALUE YES
[2017-04-12 13:44] LABS: DRAW SITE RT RADIAL; FIO2 40 %; LITER FLOW 6 L/M; NUMBER OF ARTERIAL PUNCTURES 1; OXYGEN DEVICE T-PIECE; STAT YES; ULNAR PULSE PRESENT
[2017-04-12 14:31] LABS: AUTOMATED NEUTROPHIL # 13.5 TH/MM3 (1.8-7.7); BASOPHIL # 0.2 TH/MM3 (0-0.2); EOSINOPHIL # 0.7 TH/MM3 (0-0.4); EOSINOPHIL % 4.3 % (0.0-4.0); HEMATOCRIT 25.9 % (39.0-51.0); LYMPH % 6.3 % (9.0-44.0); LYMPHOCYTE # 1.1 TH/MM3 (1.0-4.8); MEAN CELL VOLUME 88.9 FL (80.0-100.0); MEAN CORPUSCULAR HEMOGLOBIN 27.1 PG (27.0-34.0); MEAN CORPUSCULAR HGB CONC 30.5 % (32.0-36.0); MONO % 8.6 % (0.0-8.0); NEUT % 79.8 % (16.0-70.0); PLATELET COUNT 373 TH/MM3 (150-450); RED BLOOD COUNT 2.91 MIL/MM3 (4.50-5.90); RED CELL DISTRIBUTION WIDTH 17.2 % (11.6-17.2); WHITE BLOOD COUNT 16.9 TH/MM3 (4.0-11.0)
[2017-04-12 14:33] LABS: HEMO FLAGS AUTO DIFF
[2017-04-12 14:49] LABS: BICARBONATE 25.1 MEQ/L (21.0-32.0); POTASSIUM 3.8 MEQ/L (3.5-5.1)
[2017-04-12 15:06] LABS: BANDS 11 % (0-6); EOSINOPHILS 4 % (0-4); METAMYELOCYTES 1 % (0-1); MYELOCYTES 1 % (0-0); NEUTROPHIL # MANUAL DIFF 14.7 TH/MM3 (1.8-7.7); POLYS (SEG NEUTROPHILS) 74 % (16-70); SCAN/DIFF FINAL DIFF MANUAL; WBC DIFF SAMPLE 100
[2017-04-12 15:08] LABS: DOHLE BODIES PRESENT (NONE SEEN); PLATELET ESTIMATE SMEAR NORMAL (NORMAL); PLATELET MORPHOLOGY NORMAL (NORMAL)
--- NOTE | 2017-04-12 15:16 | HHI.PR ---
Subjective Remarks The patient appears to be more tachypnic ll. failed capping trials no secretions Objective Vital Signs Date Time Temp Pulse Resp B/P (MAP) Pulse Ox O2 Delivery O2 Flow Rate FiO2 04/12/17 12:00 99.8 95 18 131/62 (85) 93 04/12/17 10:00 Trach Collar 6.00 28 T-Piece 04/12/17 08:10 96 T-piece 6.00 40 04/12/17 08:00 90 04/12/17 08:00 99.0 96 18 126/61 (82) 98 04/12/17 05:07 98.2 95 20 116/71 (86) 99 04/12/17 00:55 99 04/12/17 00:30 98.0 100 20 116/62 (80) 93 04/11/17 23:40 94 T-piece 5.00 28 04/11/17 21:00 98.1 98 20 116/62 (80) 95 04/11/17 18:00 Trach Collar 28 T-Piece 04/11/17 16:00 98.4 67 18 123/73 (90) 67 I/O 04/11/17 04/11/17 04/11/17 04/12/17 04/12/17 04/12/17 07:00 15:00 23:00 07:00 15:00 23:00 Intake Total 500 ml 132 ml Output Total 1850 ml 1250 ml Balance -1850 ml -750 ml 132 ml IV Total 500 ml 132 ml Output Urine Total 1850 ml 1250 ml Result Diagram: 04/12/17 1418 04/12/17 1418 Imaging CXR: reviewed .. ? large pleural effusion Objective Remarks GA: nad trach in place, no purulant secretions around trach lungs: clear Heart: s1, S2 Abd: soft Neuro : no chnage Ext: no edema, no cyanosis Assessment and Plan Assessment and Plan 1: S/p TRach 2. s/P severe sepsis 3. Severe Deconditioning 4. Large Pleural effusion I recommend doing ct chest he may need to have thora vs bronch depending on results of the ct chest if he gets worse he may need to come to ICU .. cont rest of medical care as per Rishabh Peterson MD Apr 12, 2017 15:16
--- NOTE | 2017-04-12 16:35 | HHI.IDPN ---
Subjective Subjective Remarks ID Xcover for . Chart reviewed. Patient is a 62-year-old male, admitted to the hospital for evaluation of pain in his right wrist. He gave a history of falling about a week ago and apparently had immediate pain in the right wrist. He did not seek any medical attention initially because reportedly he was very busy. He eventually presented, and he was found to have a distal ulnar fracture on plain films. He also had some redness and swelling. Orthopedics saw the patient, and was being treated conservatively with the splint. During this hospitalization also he started complaining of generalized weakness but more so in his lower extremity than his upper extremity. He had swelling in both lower extremity which revealed evidence of DVT in the posterior tibial veins. Neurology had seen the patient and he underwent lumbar puncture which apparently was traumatic. Patient was therefore not given anticoagulation because of the traumatic LP, and he underwent placement of an IVC filter on January 25. Patient had another lumbar puncture on February 01. He was felt to have transverse myelitis, and he was given high-dose IV Solu-Medrol from January 27 to February 02. There was apparently some improvement in his weakness. The imaging studies done for his weakness showed some spinal stenosis, and neurosurgery was consult that and recommended that there was no surgical intervention to be done. Patient has been stabilizing, but last night apparently deteriorated, and he ended up getting intubated, and had significant hypotension requiring pressors. There was also an ultrasound done of his left upper extremity which showed DVT, and there was evidence of superior 2 thrombophlebitis. Vascular surgery was consult to it and he had IND on his left upper extremity. Patient has had some fevers since yesterday. 2 blood cultures were done yesterday and they're now reported as growing gram-positive cocci in [place] in clusters. He is currently sedated and intubated. He is on Levophed and vasopressin. A central line was placed as well as a femoral a line. He apparently had an IV in his left upper extremity and that was removed yesterday. Patient also has history of chronic kidney disease, and nephrology evaluated the patient. He was just being monitored for his renal insufficiency. Infectious disease following for MDR PSAE and kleb pneumo pneumonia. Reconsulted for low grade fever, leucocytosis, worsening CXR concern for new pneumonia. Overnight events reviewed with RN. Notes reviewed Low grade fevers BP good Sats dropped to 89 earlier. On T piece 40% FIO2 Secretions moderately large, with thick mucus plug like secretions. ABG reviewed and jeraldw [employer] [employer] and CXR reviewed: large left effusion and ? infiltrate. H/o DVTs bilateral LE s.p IVC filter. H/o DVTs bilateral UE. Antibiotics No antibiotics. Lines Line sites with no e.o infection Past Medical History Reviewed Allergies: Coded Allergies: levofloxacin (Verified Allergy, Severe, 01/22/17) Objective . Vital Signs Date Time Temp Pulse Resp B/P (MAP) Pulse Ox O2 Delivery O2 Flow Rate FiO2 04/12/17 12:00 99.8 95 18 131/62 (85) 93 04/12/17 10:00 Trach Collar 6.00 28 T-Piece 04/12/17 08:10 96 T-piece 6.00 40 04/12/17 08:00 90 04/12/17 08:00 99.0 96 18 126/61 (82) 98 04/12/17 05:07 98.2 95 20 116/71 (86) 99 04/12/17 00:55 99 04/12/17 00:30 98.0 100 20 116/62 (80) 93 04/11/17 23:40 94 T-piece 5.00 28 04/11/17 21:00 98.1 98 20 116/62 (80) 95 04/11/17 18:00 Trach Collar 28 T-Piece 04/12/17 04/12/17 04/13/17 15:00 23:00 07:00 Intake Total 132 ml Output Total 300 ml Balance 132 ml -300 ml IV Total 132 ml Stool Total 300 ml . Laboratory Tests Test 04/11/17 07:00 04/12/17 14:18 White Blood Count 15.0 TH/MM3 16.9 TH/MM3 Red Blood Count 3.08 MIL/MM3 2.91 MIL/MM3 Hemoglobin 8.7 GM/DL 7.9 GM/DL Hematocrit 26.9 % 25.9 % Mean Corpuscular Volume 87.4 FL 88.9 FL Mean Corpuscular Hemoglobin 28.3 PG 27.1 PG Mean Corpuscular Hemoglobin Concent 32.4 % 30.5 % Red Cell Distribution Width 16.6 % 17.2 % Platelet Count 343 TH/MM3 373 TH/MM3 Mean Platelet Volume 8.5 FL 7.9 FL Neutrophils (%) (Auto) 79.8 % Lymphocytes (%) (Auto) 6.3 % Monocytes (%) (Auto) 8.6 % Eosinophils (%) (Auto) 4.3 % Basophils (%) (Auto) 1.0 % Neutrophils # (Auto) 13.5 TH/MM3 Lymphocytes # (Auto) 1.1 TH/MM3 Monocytes # (Auto) 1.5 TH/MM3 Eosinophils # (Auto) 0.7 TH/MM3 Basophils # (Auto) 0.2 TH/MM3 CBC Comment AUTO DIFF Differential Total Cells Counted 100 Neutrophils % (Manual) 74 % Band Neutrophils % 11 % Lymphocytes % 8 % Monocytes % 1 % Eosinophils % 4 % Neutrophils # (Manual) 14.7 TH/MM3 Metamyelocytes 1 % Myelocytes 1 % Differential Comment FINAL DIFF MANUAL Dohle Bodies PRESENT Platelet Estimate NORMAL Platelet Morphology Comment NORMAL Laboratory Tests Test 04/11/17 07:00 04/12/17 14:18 Blood Urea Nitrogen 97 MG/DL 82 MG/DL Creatinine 1.48 MG/DL 1.40 MG/DL Random Glucose 75 MG/DL 122 MG/DL Total Protein 5.6 GM/DL Albumin 2.2 GM/DL Calcium Level 8.1 MG/DL 8.3 MG/DL Alkaline Phosphatase 116 U/L Aspartate Amino Transf (AST/SGOT) 37 U/L Alanine Aminotransferase (ALT/SGPT) 18 U/L Total Bilirubin 0.5 MG/DL Sodium Level 145 MEQ/L 148 MEQ/L Potassium Level 3.8 MEQ/L 3.8 MEQ/L Chloride Level 111 MEQ/L 114 MEQ/L Carbon Dioxide Level 24.7 MEQ/L 25.1 MEQ/L Anion Gap 9 MEQ/L 9 MEQ/L Estimat Glomerular Filtration Rate 48 ML/MIN 51 ML/MIN Imaging Chest X-Ray 03/14/17 0000 Signed Impressions: Service Date/Time: Tuesday, March 14, 2017 13:41 - CONCLUSION: 1. Tracheostomy in good position. 2. Left lower lung infiltrates and left pleural effusion. Candido Patton MD Aortography 02/28/17 0000 Signed Impressions: Service Date/Time: Tuesday, February 28, 2017 08:01 - CONCLUSION: 1. Active hemorrhage from distal right lateral sacral and iliolumbar branches successfully coil and Gelfoam embolized, as above. Juan Bhakta MD Abdomen/Pelvis CT 02/28/17 0000 Signed Impressions: Service Date/Time: Tuesday, February 28, 2017 06:51 - CONCLUSION: 1. The right retroperitoneal hematoma has increased in size, as above. There are 2 serpiginous arterially enhancing structures visualized, one in the right psoas muscle and another extending into the hematoma at the right iliac fossa. These could represent sites of continued active bleeding. 2. Stable moderate size left and small right pleural effusion with associated compressive atelectasis. 3. Stable small volume of free fluid in the abdomen and pelvis. There is also anasarca. The findings concerning the retroperitoneal hematoma were discussed with Dr. Aguiar via telephone at approximately 7: 10 AM on 02/28/2017. Angelo Allen MD Chest CT 02/27/17 0000 Signed Impressions: Service Date/Time: Monday, February 27, 2017 18:12 - CONCLUSION: 1. Bilateral pleural effusions with bibasilar atelectasis, left greater than right. Tom Sanchez MD Abdomen X-Ray 02/26/17 0000 Signed Impressions: Service Date/Time: Sunday, February 26, 2017 14:52 - CONCLUSION: 1. Nonobstructive bowel gas pattern. Juan Bhakta MD Upper Extremity Ultrasound 02/10/17 0000 Signed Impressions: Service Date/Time: Friday, February 10, 2017 18:46 - CONCLUSION: Occlusive thrombus in the cephalic and basilic veins. Benjamin Person MD Lung Scan- Nuclear Medicine 02/10/17 0000 Signed Impressions: Service Date/Time: Friday, February 10, 2017 22:17 - CONCLUSION: Low probability pulmonary embolism. Candido Patton MD Head CT 02/10/17 0000 Signed Impressions: Service Date/Time: Friday, February 10, 2017 23:51 - CONCLUSION: Negative noncontrast CT brain. Candido Patton MD Wrist X-Ray 02/06/17 0000 Signed Impressions: Service Date/Time: Monday, February 06, 2017 12:50 - CONCLUSION: Minimally displaced distal radius and ulnar fractures. Armando Dodd MD Lumbar Puncture Fluoroscopy 02/01/17 0000 Signed Impressions: Service Date/Time: January 09:35 - CONCLUSION: Uncomplicated fluoroscopically guided lumbar puncture. CSF was clear. Nabeel Peralta MD Head Magnetic Resonance Angiography 01/27/17 Signed Impressions: Service Date/Time: Friday, January 27, 2017 10:33 - CONCLUSION: No intracranial vascular abnormality is identified. There is no aneurysm visualized. Angelo Allen MD IVC Filter Placement X-Ray 01/25/17 Signed Impressions: Service Date/Time: January 10:29 - CONCLUSION: Uncomplicated inferior vena cava filter placement as above. Yung Fowler MD Thoracic Spine MRI 01/24/17 Signed Impressions: Service Date/Time: Tuesday, January 24, 2017 22:29 - CONCLUSION: 1. Mild degenerative spondylosis most prominently at T11-L1 with slight effacement of the anterior thecal sac and left lateral recess. No significant neural foraminal stenosis. 2. No acute fracture. Juan Bhakta MD Renal Ultrasound 01/23/17 Signed Impressions: Service Date/Time: Monday, January 23, 2017 08:53 - CONCLUSION: 1. Evidence of chronic parenchymal disease of both kidneys. No obstructive uropathy or other acute abnormality demonstrated. 2. Trace ascites, nonspecific. Angelo Garrido MD Lumbar Spine MRI 01/23/17 Signed Impressions: Service Date/Time: Monday, January 23, 2017 17:01 - CONCLUSION: 1. At L4-5 is a broad-based disc protrusion with severe central canal and lateral recess stenosis and flattening of the exiting right L4 nerve root. 2. L5-S1 there is a disc protrusion and moderate stenosis with flattening of the exiting L5 nerve roots bilaterally. 3. At L3-4 there is a moderate to severe central stenosis and lateral recess stenosis with mild foraminal stenosis. 4. No acute fracture or spondylolisthesis. Trace Holloway MD Lower Extremity Ultrasound 01/23/17 Signed Impressions: Service Date/Time: Monday, January 23, 2017 09:53 - CONCLUSION: Bilateral focal lower extremity DVT involving the posterior tibial veins. Angelo Garrido MD Cervical Spine MRI 01/23/17 Signed Impressions: Service Date/Time: Monday, January 23, 2017 17:01 - CONCLUSION: 1. Multilevel cervical spine degenerative changes as above. 2. Mild degrees of spinal stenosis at C3/C4-C6/C7. No cord compression or cord signal abnormality. 3. Age indeterminate left paracentral/foraminal disc protrusion at C6/C7. 4. Multilevel foraminal stenosis, most severe on the left at C6/C7. Please see individual levels above. 5. No fracture or subluxation of the cervical spine. Angelo Garrido MD Brain MRI 01/23/17 0000 Signed Impressions: Service Date/Time: Monday, January 23, 2017 17:01 - CONCLUSION: 1. No acute stroke or other acute intracranial abnormality demonstrated. 2. Moderate severity chronic white matter changes, nonspecific but most likely related to chronic small vessel disease. 3. Few scattered tiny lacunar infarcts of the brainstem. 4. Given the findings are not entirely specific, clinical evaluation for possible multiple sclerosis recommended. Angelo Garrido MD Knee X-Ray 01/22/[id number] Signed Impressions: Service Date/Time: Sunday, January 22, 2017 21:17 - CONCLUSION: 1. Evidence of moderate to large joint effusion. 2. No acute fracture or malalignment. 3. Mild 3 compartment osteoarthritic change. Benjamin Person MD Hip and Pelvis X-Ray [id number]/22/[id number] Signed Impressions: Service Date/Time: Sunday, January 22, 2017 21:10 - CONCLUSION: 1. Mild to moderate degenerative change of both hips with no acute fracture or malalignment. There is flattening and remodeling of the right humeral head. Benjamin Person MD Physical Exam GENERAL: Drowsy but arousable. Using accessory muscles of respiration. SKIN: Cool and dry. No generalized rash. EYES: [place] conjunctiva. No petechia or hemorrhage. EARS, NOSE AND THROAT: Nose without bleeding or purulent nasal discharge. Dry oral mucosa NECK: Trach site ok. CARDIOVASCULAR: Regular rate and rhythm. Soft heart sounds. No murmurs RESPIRATORY: Coarse BS bilaterally, decreased at bases. ABDOMEN: Soft, mildly distended, PEG site ok. Mild tenderness, no guarding EXTREMITIES: No clubbing, cyanosis. Edema feet better; edema hands better : very swollen scrotum, has a lot of sediment in his cath tubing NEUROLOGICAL: awake and following commands PSYCHIATRIC: Calm and cooperative LINE: Lines with no evidence of infection Assessment & Plan Remarks IMPRESSION Aspiration Pneumonia in health care setting. Mucus plugs with atelectasis. Worsening leucocytosis. ESBL in urine in recent past. 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 Large R retroperitoneal bleed, S/P multiple transfusions and S/P coiling of bleeders Anemia, due to bleed, retroperitoneal MSSA sepsis, due to suppurative thrombophlebitis LUE, S/P I and D and excision of portion of cephalic vein - S/P Rx Respiratory failure, has had several intubations - reintubated again 02/28, extubated 03/11 - reintubated again - S/P trach 03/14 Recent Rx 7 days high dose solumedrol for transverse myelitis Wu LE DVT has IVC filter placed 01/25 - ?hypercoagulable state Chronic kidney disease, worsening creatinine - shock and compression of ureter by hematoma Known DM, HTN RECOMMENDATION Start Zerbaxa IV (New HCAP in patient with MDR PSAE and ESBL history) Start Flagyl IV (pending resp issues being addressed will reevaluate in am) Start Zyvox IV (suspect HCAP, cr elevated would like to avoid nephrotoxins) Check Sputum culture Blood cultures x 2 stat d.w [employer] [employer] about patient condition: recommend transfer to ICU first followed by CTs when stable. Patient needs to be placed on vent to help with mucus plugs and atelectasis as a priority. Likely will need bronchoscopy for mucus plugs. Likely will need thoracentesis depending on US chest for markings ordered by . d.w . Follow cultures Follow clinically. Critical thinking and decision making. Time in excess of 40 mins. Spoke to lifter and RN: Jaron RN and Resp therapist were called in addition to [employer] [employer] to assess transfer of patient due to change in condition. Andressa Puente MD Apr 12, 2017 16:35
[2017-04-12] MEDS ORDERED: CEFTOLOZANE-TAZOBACTAM INJ 1,500 MG in SODIUM CHLORIDE 0.9% INJ 100 ML IV SCH (17:00)
[2017-04-12] MEDS ORDERED: LINEZOLID 600 MG PREMIX 300 ML IV SCH (17:00)
--- NOTE | 2017-04-12 17:29 | HHI.CCPN ---
Subjective Remarks/Hospital Course Date of admission: 01/22 Date of critical care medicine consult 02/10 due to acute hypoxemic respiratory failure requiring emergent intubation 62-year-old male with a past medical history of hypertension, hyperlipidemia, diabetes mellitus, gout, uric acid kidney stones, kidney disease of unknown stage who originally presented to [facility] emergency department on 01/22 after a fall in which he sustained a right distal ulna fracture. He had been experiencing a gradual primarily lower extremity weakness as well as upper extremity weakness that was progressive. Neurology consult was obtained. MRI revealed no acute stroke. He had multifocal white matter changes. Tiny lacunar infarcts of the brainstem. Lumbar MRI report states L4-L5 disc protrusion with cetnral canal stenosis. Dr. Blackwell evaluated and states no cord compression on MRI C/T spine and recommended nonoperative management. Symptoms were felt to be consistent with transverse myelitis and he underwent Solumedrol 250 mg IV q6 hours 01/27-02/02. He also was found to have occlusive thrombus in the bilateral posterior tibial veins. Heparin was being avoided because he had traumatic lumbar puncture on 01/26 and 02/01. IVC filter was placed 01/25. He was undergoing physical therapy, reportedly making some improvements with plan to eventually discharged home with his son (max assist standing, and bed to chair per PT note). Apparently he had some vomiting the evening of 02/09 and additional vomiting on 02/10. He had a fever 102.8 on 02/09. Last recorded bowel movement was 02/03. Tonight he had acute onset of severe hypoxemia and respiratory distress. [facility] called and he was brought emergently to [facility] [place] where his sats were 64% on 100% nonrebreather with mean arterial pressure 44. He was emergently intubated, CVL and art line placed. He is in septic shock. SUBJ: 02/11: Patient remains intubated sedated, critically ill. FiO2 reduced to 80% after increasing PEEP to 12. In severe septic shock Levophed at 16 mcg/m, vasopressin at 0.04 international units. D/W vascular surgery Dr. Enciso. He performed bedside Left upper extremity incision and debridement and excision of septic cephalic vein. 02/12: Remains intubated sedated profoundly septic, in shock on vasopressin and 7 mcg/min Levophed. FiO2 has improved to 45%, WBC count remains elevated with 20 ,000 white count significant left shift. Slight improvement in creatinine 2.9 urine output 750 ml 24 hours. 2-D echo shows LV ejection fraction 20-25%, no vegetation reported. Blood cultures 4 staph aureus. Wound culture pending 02/13: Remains critically ill but stable to improving. WBC count is down to 16, creatinine improving to 2.36. Off all pressors. Urine output also improving. 1.5L in 24 hours 02/14: Extubated 02/13. Tolerating well. WBC now down to 12.8. Creat improving 2.3 to 2. UO 3.4L. remains off all pressors. Was started on Precedex yesterday night for agitation, currently on 0.5 g per KG per hour. Chest x-ray shows left more than right air space disease 02/20/17 Re consult: 62-year-old male who was originally admitted for lower extremity weakness and found to have what was thought to be possible transverse myelitis. His hospital course his included a healthcare associated pneumonia, septic thrombophlebitis, DVT. He was most recently in the hospital floor where he had significant nausea and vomiting and diarrhea. His C. difficile test was recently negative. However, he has experienced worsening acute on chronic renal failure, hypotension, tachycardia, and severe hypoxemia. He did have a bout of vomiting earlier today, and his hospitalist attending suspects that he may have aspirated. He arrives by rapid response to the ICU with a nonrebreather in place in severe respiratory distress with SPO2 of 85%. I emergently intubate the patient, see separate procedure note for details. At this point the patient was hypotensive and tachycardic. He does have a history of an EF of 20%, however clinically he appears in florid septic shock. I placed central line and arterial line started vasopressors and gentle IV fluid resuscitation with 1 L of LR. Patient today was empirically broadened to vancomycin and Zosyn from his oxacillin which was initially treating MSSA bacteremia. He is recultured. Critical-care medicine is consulted to evaluate and manage his worsening multiorgan system failure and decompensated septic shock 02/21: Patient remains intubated sedated. Becomes anxious tachypnea on sedation lightening. Chest x-ray shows mild left lower lobe infiltrate. WBC count is slightly improved today from 23.2 t0 21. C Diff negative. UO adequate, creat slightly worsening. 1.57 today 02/22: Remains intubated sedated tolerated CPAP yesterday, plan is for EGD/ Colonscopy. WBC count back to normal. UO adequate. Creat stable 02/23: Tolerating CPAP trials following commands. Will do a spontaneous breathing trials. Status post EGD colonoscopy yesterday -Gastritis, esophagitis. Diverticulosis and multiple polyps. Urine output adequate but creatinine increasing to 1.7 with patient requiring multiple straight catheterization. We'll reinsert Sloan. 02/24: Breathing comfortably 24 hours after extubation. Protects airway well. 02/25: Excoriate bottom, will place rectal FMS. Start pureed diet. 02/26: Afebrile. Complaining of nausea and vomiting this afternoon. Increased stool output. Continue potassium replacement today. 02/27: 10 PM overnight, acutely hypotensive. Received 3 units PRBCs. Antibiotic coverage broadened to piperacillin/tazobactam, cortisol and 1 dose of vancomycin. Oxacillin drip currently on hold. Symptomatically, patient continues to vague abdominal pain/nausea vomiting which is unchanged for the past several days. Lipase elevated yesterday. Lactic acid normal. Troponin normal. Urinary retention after removal of Sloan. Straight catheter 1300. Cc 02/28: New diagnosis large retroperitoneal hematoma. Received 10 PRBC, 14 FFP, 2 platelets, 1 cryo-, 6 g calcium chloride, 2 is magnesium sulfate and 4 mg Bumex. CTA abdomen revealed possible arterial bleeds iliac, lumbar. Patient is currently on norepinephrine and epinephrine drips and possible need right nephrostomy tube placement due to large hematoma compressing ureter. Intra-abdominal bladder pressures are currently 13 03/01: Afebrile. Received 25 g albumin and 1 unit PRBCs overnight. Intra- abdominal bladder pressures currently 19. Currently on 3 micrograms per minute of norepinephrine. [id number] 1 out of 4 on 4 mics grams per kilogram per minute of cisatracurium. 03/02: Slightly hypothermic overnight. Hemoglobin appears to have stabilized. Troponin bump overnight likely secondary to demand ischemia from hypotension. Hemodynamically stable off all vasopressors. 03/03: Received 1 PRBCs overnight. 3 units currently. Off all vasopressors. Likely rebleeding. Stool is dark. 03/04: Remains unstable. Ventilator dependent. 03/05: afebrile. hgb stable. 03/06: bumex drip started overnight. good uop after bumex initiated. still grossly volume overloaded. Cr downtrending. more awake with transition to propofol. still too volume overloaded to tolerate extubation. hgb stable. 03/07: Afebrile. Tolerating tube feeds at goal with Nepro. Positive BM. On low-dose fentanyl and propofol drips. Potassium currently being replaced. 03/08: Eyes will open on ventilator. Afebrile. Tolerating tube feeding. Failed PSV trial yesterday due to apnea. 03/09: Following commands. Tmax 101. Tolerating tube feeding. One hour PSV trial yesterday. Currently tolerating well so far today 1.5 hours 03/10: Low-grade temperatures. Tolerating PSV trial 10 hours yesterday. Currently at 5/5 at 35%. We'll probably attempt extubation a.m. after hemodialysis. 03/11: Extubated currently in 4 L nasal cannula. Thick secretions thick clear with cough. Currently afebrile. Tolerating diet previously. 03/12: Sleepy this morning but arouses. Following commands. Refusing diet at the present time. On 2 L nasal cannula. 03/13: Patient reintubated last night for worsening respiratory status. Currently sedated on mechanical ventilation. Became hypotensive following intubation and is on Levophed 20 mics per minute. 03/14: Sedated, orally intubated on mech vent at the time of my evaluation this AM, subsequently underwent perc trach placement. Remains on levophed for pressor support. Transfused 1 unit PRBCs today. Persisten 03/15: Trach site clean, dry. CXR with bilateral basilar infiltrates. 03/16: Pulmonary congestion persists. Clinical condition not improving. Prognosis becoming increasingly bleak. 03/17: Glucose intolerance worse. No improvement in neurological function. 03/18: Remains on mechanical ventilation via tracheostomy. Off pressors now. Neurologic status remains poor. 03/19: Drowsy, encephalopathic, arousable. On mechanical ventilation via tracheostomy. Levemir increased for hyperglycemia today. Remains off pressors 03/20: More awake, moves both upper extremities. On mechanical ventilation via tracheostomy. Daily C Pap trials ongoing. 03/21: Awake and alert. On mechanical ventilation via tracheostomy. Opens and closes eyes on command. 03/22: Awake and alert. Tolerated T PIECE for 7 hours yesterday. Dialyzed today. 03/23: Currently on T piece trial. Status post dialysis yesterday on 3 L. Awake and alert. Wants to eat. Subjective 03/24: Currently afebrile. Hemodialysis catheter discontinued yesterday from left IJ. Persistent leukocytosis noted. Potassium will be replaced. Furosemide 40 mg twice a day IV to 20 mg IV twice a day 03/25: WBC count unchanged. Patient on T piece with humidified air greater than 48 hours, tolerating it well. Reconsulted 04/12: The patient was transferred emergently from the floor/ [facility]. Patient was initially seen by agricultural appraiser Dr. Estrada, and the patient was noted to be tachypneic on T piece of 40%. ABGs were performed which showed a PaO2 of 60 on T piece of FiO2 of 40%. Chest x-ray was performed which showed loss of entire left hemidiaphragm assistant import manager consolidation in the left lower lobe. Concern for mucus plugging versus fluid. The patient was [place] emerg[place] [facility] on a ventilator CT of the chest is pending. Upon arrival in the room the patient is alert and oriented, mouthing words, nodding head to yes and no questions O2 sat is 100% but patient is currently on mechanical ventilation. Currently in no respiratory distress. Objective Vital Signs Date Time Temp Pulse Resp B/P (MAP) Pulse Ox O2 Delivery O2 Flow Rate FiO2 04/12/17 16:33 99.3 92 18 130/68 (88) 93 04/12/17 10:00 Trach Collar 6.00 28 T-Piece Intake and Output 04/12/17 04/12/17 04/13/17 08:00 16:00 00:00 Intake Total 500 ml 132 ml Output Total 1250 ml 300 ml Balance -750 ml -168 ml Result Diagram: 04/12/17 1418 04/12/17 1418 Other Results Laboratory Tests Test 04/12/17 13:32 Blood Gas Puncture Site RT RADIAL Blood Gas Patient Temperature 98.6 Blood Gas HCO3 24 mmol/L (22-26) Blood Gas Base Excess 0.4 mmol/L (-2-2) Blood Gas Oxygen Saturation 89 % (90-100) Arterial Blood pH 7.45 (7.380-7.420) Arterial Blood Partial Pressure CO2 35 mmHg (38-42) Arterial Blood Partial Pressure O2 60 mmHg (61-120) Arterial Blood Oxygen Content 11.8 Vol % (12.0-20.0) Arterial Blood Carboxyhemoglobin 2.4 % (0-4) Arterial Blood Methemoglobin 1.0 % (0-2) Blood Gas Hemoglobin 9.4 G/DL (12.0-16.0) Oxygen Delivery Device T-PIECE Blood Gas Liter Flow 6 L/M Blood Gas Inspired Oxygen 40 % Imaging Last Impressions Chest X-Ray 03/14/17 0000 Signed Impressions: Service Date/Time: Tuesday, March 14, 2017 13:41 - CONCLUSION: 1. Tracheostomy in good position. 2. Left lower lung infiltrates and left pleural effusion. Candido Patton MD Aortography 02/28/17 0000 Signed Impressions: Service Date/Time: Tuesday, February 28, 2017 08:01 - CONCLUSION: 1. Active hemorrhage from distal right lateral sacral and iliolumbar branches successfully coil and Gelfoam embolized, as above. Juan Bhakta MD Abdomen/Pelvis CT 02/28/17 0000 Signed Impressions: Service Date/Time: Tuesday, February 28, 2017 06:51 - CONCLUSION: 1. The right retroperitoneal hematoma has increased in size, as above. There are 2 serpiginous arterially enhancing structures visualized, one in the right psoas muscle and another extending into the hematoma at the right iliac fossa. These could represent sites of continued active bleeding. 2. Stable moderate size left and small right pleural effusion with associated compressive atelectasis. 3. Stable small volume of free fluid in the abdomen and pelvis. There is also anasarca. The findings concerning the retroperitoneal hematoma were discussed with Dr. Aguiar via telephone at approximately 7: 10 AM on 02/28/2017. Angelo Allen MD Chest CT 02/27/17 0000 Signed Impressions: Service Date/Time: Monday, February 27, 2017 18:12 - CONCLUSION: 1. Bilateral pleural effusions with bibasilar atelectasis, left greater than right. Tom Sanchez MD Abdomen X-Ray 02/26/17 0000 Signed Impressions: Service Date/Time: Sunday, February 26, 2017 14:52 - CONCLUSION: 1. Nonobstructive bowel gas pattern. Juan Bhakta MD Upper Extremity Ultrasound 02/10/17 0000 Signed Impressions: Service Date/Time: Friday, February 10, 2017 18:46 - CONCLUSION: Occlusive thrombus in the cephalic and basilic veins. Benjamin Person MD Lung Scan-V Nuclear Medicine 02/10/17 Signed Impressions: Service Date/Time: Friday, February 10, 2017 22:17 - CONCLUSION: Low probability pulmonary embolism. Candido Patton MD Head CT 02/10/17 Signed Impressions: Service Date/Time: Friday, February 10, 2017 23:51 - CONCLUSION: Negative noncontrast CT brain. Candido Patton MD Wrist X-Ray 02/06/17 Signed Impressions: Service Date/Time: Monday, February 06, 2017 12:50 - CONCLUSION: Minimally displaced distal radius and ulnar fractures. Armando Dodd MD Lumbar Puncture Fluoroscopy 02/01/17 0000 Signed Impressions: Service Date/Time: January 09:35 - CONCLUSION: Uncomplicated fluoroscopically guided lumbar puncture. CSF was clear. Nabeel Peralta MD Head Magnetic Resonance Angiography 01/27/17 Signed Impressions: Service Date/Time: Friday, January 27, 2017 10:33 - CONCLUSION: No intracranial vascular abnormality is identified. There is no aneurysm visualized. Angelo Allen MD IVC Filter Placement X-Ray 01/25/17 Signed Impressions: Service Date/Time: January 10:29 - CONCLUSION: Uncomplicated inferior vena cava filter placement as above. Yung Fowler MD Thoracic Spine MRI 01/24/17 0000 Signed Impressions: Service Date/Time: Tuesday, January 24, 2017 22:29 - CONCLUSION: 1. Mild degenerative spondylosis most prominently at T11-L1 with slight effacement of the anterior thecal sac and left lateral recess. No significant neural foraminal stenosis. 2. No acute fracture. Juan Bhakta MD Renal Ultrasound 01/23/17 Signed Impressions: Service Date/Time: Monday, January 23, 2017 08:53 - CONCLUSION: 1. Evidence of chronic parenchymal disease of both kidneys. No obstructive uropathy or other acute abnormality demonstrated. 2. Trace ascites, nonspecific. Angelo Garrido MD Lumbar Spine MRI 01/23/17 Signed Impressions: Service Date/Time: Monday, January 23, 2017 17:01 - CONCLUSION: 1. At L4-5 is a broad-based disc protrusion with severe central canal and lateral recess stenosis and flattening of the exiting right L4 nerve root. 2. L5-S1 there is a disc protrusion and moderate stenosis with flattening of the exiting L5 nerve roots bilaterally. 3. At L3-4 there is a moderate to severe central stenosis and lateral recess stenosis with mild foraminal stenosis. 4. No acute fracture or spondylolisthesis. Trace Holloway MD Lower Extremity Ultrasound 01/23/17 Signed Impressions: Service Date/Time: Monday, January 23, 2017 09:53 - CONCLUSION: Bilateral focal lower extremity DVT involving the posterior tibial veins. Angelo Garrido MD Cervical Spine MRI 01/23/17 Signed Impressions: Service Date/Time: Monday, January 23, 2017 17:01 - CONCLUSION: 1. Multilevel cervical spine degenerative changes as above. 2. Mild degrees of spinal stenosis at C3/C4-C6/C7. No cord compression or cord signal abnormality. 3. Age indeterminate left paracentral/foraminal disc protrusion at C6/C7. 4. Multilevel foraminal stenosis, most severe on the left at C6/C7. Please see individual levels above. 5. No fracture or subluxation of the cervical spine. Angelo Garrido MD Brain MRI 01/23/17 Signed Impressions: Service Date/Time: Monday, January 23, 2017 17:01 - CONCLUSION: 1. No acute stroke or other acute intracranial abnormality demonstrated. 2. Moderate severity chronic white matter changes, nonspecific but most likely related to chronic small vessel disease. 3. Few scattered tiny lacunar infarcts of the brainstem. 4. Given the findings are not entirely specific, clinical evaluation for possible multiple sclerosis recommended. Angelo Garrido MD Knee X-Ray [id number]/22/[id number] Signed Impressions: Service Date/Time: Sunday, January 22, 2017 21:17 - CONCLUSION: 1. Evidence of moderate to large joint effusion. 2. No acute fracture or malalignment. 3. Mild 3 compartment osteoarthritic change. Benjamin Person MD Hip and Pelvis X-Ray [id number]/[id number] Signed Impressions: Service Date/Time: Sunday, January 22, 2017 21:10 - CONCLUSION: 1. Mild to moderate degenerative change of both hips with no acute fracture or malalignment. There is flattening and remodeling of the right humeral head. Benjamin Person MD Objective Remarks BP 109/82 Pulse 90 O2sat 100% on mechanical ventilation settings 12/500/5 GENERAL: 62-year-old male, resting in bed, on mechanical ventilation via tracheostomy in no apparent distress nodding head to yes and no questions HEENT: Normocephalic. Atraumatic. Pupils equal, round, reactive. NECK: Tracheostomy in place, around trach site reddened. CHEST: On mechanical ventilation tracheostomy, air entry decreased bilaterally . Trach site reddened with noted yellowish-green drainage CARDIOVASCULAR: S1-S2 regular, no gallop or murmur ABDOMEN distended. No rigidity. Umbilical hernia is reducible. No guarding. PEG tube in place : Positive scrotal edema Sloan in situ MUSCULOSKELETAL: Pulses 2+. 1+ bilateral upper and lower extremity edema. NEUROLOGICAL: Awake and alert, has spontaneous eye opening. Opens and closes eyes on command. Moves 4 limbs weakly to stimulation. Procedures 01/25/2017- Retrievable IVC Filter placement 01/26/17-lumbar puncture with fluoroscopy-by interventional radiology 02/01/17- lumbar puncture fluoroscopy by interventional radiology 02/10/17- Endotracheal Intubation 02/10/17-left IJ central venous line placed 02/10/17-left femoral arterial line placed 02/11/17-Diagnostic and therapeutic bronchoscopy with bronchoalveolar lavage 02/11/17-Left upper extremity incision and debridement with excision of septic cephalic vein 02/13/17- Extubated 02/20/17- endotracheal intubation 02/20/17- Left subclavian central line placement 02/20/17-Right radial A-line placement 02/22/17-EGD/colonoscopy 02/28/17-right radial a line 02/28/17- Endotracheal intubation 02/28/17- right sided introducer catheter placement 02/28/17- Right IJ central line placement 02/28/17-Right chest tube placement 02/28/17- Embolization of inferior and superior sacral branches of right internal iliac artery 03/01/17- Hemodialysis access catheter 03/03/17-Right IJ central line placement 03/11/17-Extubated 03/13/17- Endotracheal intubation 03/14/17-Tracheostomy placement 03/15/17-PEG tube placement 04/11/17-CT Chest Urinary Catheter: Yes Date of Insertion: Feb 20, 2017 Date of Insertion: Mar 03, 2017 Line: Central Venous Catheter Side: Right Location: Internal, Jugular A/P Problem List: (1) Septic shock ICD Code: A41.9 - Sepsis, unspecified organism; R65.21 - Severe sepsis with septic shock Status: Acute (2) Acute respiratory failure ICD Code: J96.00 - Acute respiratory failure, unspecified whether with hypoxia or hypercapnia Status: Acute (3) Thrombophlebitis arm ICD Code: I80.8 - Phlebitis and thrombophlebitis of other sites (4) Aspiration pneumonia ICD Code: J69.0 - Pneumonitis due to inhalation of food and vomit Status: Acute (5) Atelectasis of left lung ICD Code: J98.11 - Atelectasis Status: Acute (6) Quadriparesis ICD Code: G82.50 - Quadriplegia, unspecified Status: Acute (7) DVT (deep venous thrombosis) ICD Code: I82.409 - Acute embolism and thrombosis of unspecified deep veins of unspecified lower extremity (8) Altered mental status ICD Code: R41.82 - Altered mental status, unspecified Status: Acute (9) CKD (chronic kidney disease) stage 3, GFR 30-59 ml/min ICD Code: N18.3 - Chronic kidney disease, stage 3 (moderate) Status: Chronic (10) Acute renal failure ICD Code: N17.9 - Acute kidney failure, unspecified Status: Acute (11) Diabetes mellitus ICD Code: E11.9 - Type 2 diabetes mellitus without complications Status: Chronic (12) Distal end of ulna fracture, closed ICD Code: S52.609A - Unspecified fracture of lower end of unspecified ulna, initial encounter for closed fracture Status: Acute (13) Gout ICD Code: M10.9 - Gout, unspecified Status: Chronic Assessment and Plan Assessment: The patient has respiratory compromise secondary to possible large pleural effusions versus mucus plugging. CT chest pending. Admit to ICU. NEURO/PSYCH: Acute metabolic encephalopathy- persistent Quadriparesis secondary to suspected transverse myelitis Recurrent falls Suspected transverse myelitis. Received methylprednisolone 250 mg IV every 6 hours 01/27-02/02, started back on hydrocortisone 02/21/17, initially tapering to 50 mg IV every 8 hours starting received 1 dose at 2100 prior to becoming hypotensive. weaning hydrocortisone taper and stopped 03/09. Resumed hydrocortisone 50mg IV Q6hrly on 03/14 as patient became hypotensive following intubation on 03/13 requiring levophed. Continue 50 mg IV every 6 hours LP 01/26 and 02/01. CSF culture negative 01/26, 02/01 Oligoclonal bands negative. CSF/serum IgG index is not elevated. VDRL nonreactive. Cryptococcal antigen negative. Brain MRI 01/23 no acute stroke. Few scattered lacunar infarcts of the brainstem. Moderate chronic white matter changes. MRI cervical/thoracic spine- mild spinal stenosis C3/C4 to C6/C7. No cord compression. RPR negative Neurology has been following, Dr. Crenshaw. Repeat CT brain 02/10 - negative Continue PT/OT Continue oxycodone 10 mg every 4 hours scheduled RESP: Acute hypoxemic respiratory failure Healthcare associated pneumonia/Aspiration Pneumonia S/P Right-sided chest tube 02/28 continue mechanical ventilation, vent bundle, PSV and T piece trials as tolerated -On T piece >48 hours. Humidified room air Albuterol/ipratropium aerosols every 6 hours with albuterol aerosols every 2 hours prn VQ scan 02/10 low probability for PE. CT chest 02/10 - left lower lobe collapse and consolidation. CT chest 02/27 revealed right greater than left pleural effusions. Extubated 02/23. Intubated 02/28. Extubated 03/11, Reintubated on 03/13. Right-sided chest tube placement 02/28 change management coordinator, removed 03/05. Failed attempt to wean successfully due to volume overload and multiple organ failure. underwent perc tracheostomy 03/14. CT chest [id number] results CV: Severe sepsis - resolved. Systolic heart failure likely chronic with ejection fraction 20-25% Hyperlipidemia History of hypertension Mild TR Sinus tachycardia Elevated troponin likely type II demand ischemia Restarted on Levophed on 03/09 for following intubation, titrated off after starting hydrocortisone. Started hydrocortisone stress dose on 03/14 (as patient has been on steroids and was just tapered off on 03/09.) Patient has on hypotensive twice when attempting to wean off stress dose hydrocortisone in the past. Currently on atenolol 25 mg twice a day. Continue amlodipine 5 mg daily As needed Nitropaste, labetalol and hydralazine for hypertension Atorvastatin 10 mg by mouth daily for dyslipidemia. Troponin 0.[address]-T changes. 2-D echocardiogram 01/11 revealed EF 20-25%. Mild TR. Pulmonary arterial pressures were normal around 20 Troponin 6.55 on 03/02. Currently on furosemide 20 mg IV twice a day per nephrology GI: Large right retroperitoneal hematoma Erosive esophagitis Adematous/hyperplastic colon polyps Severe acute protein calorie malnutrition Nausea/vomiting - resolved. Diarrhea Gastritis Diverticulosis Internal and external hemorrhoids Hiatal hernia Elevated lipase 02/27 CT chest/abdomen and pelvis - 9.4 x 7.5 renal and 16 x 12 cm right psoas muscle hematoma. Fluid around liver and spleen. Right-sided nephrolithiasis CTA abdomen 02/28 - possible blushing around iliac/lumbar vessels Discussed with IR. s/p attempted embolization CT abdomen and pelvis 02/10 atrophic left kidney. Bilateral inguinal hernias fat- containing. Nonobstructing 12 mm right kidney stone repeat CT abd/pelvis did not show evidence of obstruction. patient clinically has been having diarrhea (c. diff negative 02/19). also with nausea/vomiting of unclear etiology. EGD/Colonoscopy-02/22/17 showed gastritis esophagitis, hiatal hernia, diverticulosis and multiple polyps in descending colon and sigmoid which were snared biopsied. Biopsy pending Dr. Lewis consulted for intervention if needed for elevated IAP. 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 Monitor electrolytes. RIOS/SPEP negative. 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 Recommended nephrostomy tube if obstruction Nephrology consulted, hemodialysis per nephrology. Making urine. Due to acute illness holding tamsulosin 0.4 mg by mouth daily for BPH ICU electrolyte replacement protocol Last IHD was 03/22 ID: Septic shock- resolved. Abscess and Suppurative thrombophlebitis left upper extremity MSSA bacteremia Klebsiella UTI ESBL positive Acute aspiration pneumonia/HCAP Previously treated with Bactrim, ertapenem, intermittent vancomycin, nafcillin Blood cultures 2, UA ESBL positive Klebsiella UTI Sputum 03/14 - Pseudomonas came back resistant to imipenem, Stenotrophomonas maltophilia Repeat blood cultures 2 and sputum 03/08 pending. Urine negative. Antibiotics per ID ID following-Dr. Puente HEME: Acute blood loss anemia DVT, bilateral posterior tibial vein, IVC filter Septic thrombophlebitis with occlusive thrombus mid cephalic and basilic vein side Received 10 PRBC, 14 FFP, 2 platelets, 1 cryo-02/28 Received 3 units PRBCs Serial hemoglobins every 6 hours Recheck coags Ultrasound 01/23/17 - Bilateral lower extremity with occlusive posterior tibial vein DVTs. Heparin was initially started for DVT but was placed on hold due to LP with suspected traumatic tap. Currently holding full anticoagulation with enoxaparin 100 mg IV twice a day due to anemia as of 02/26 IVC filter was placed 01/25/17. Ultrasound LUE 02/10 occlusive thrombus mid cephalic vein, basilic vein.s. Transfuse 3 units PRBCs 02/27 Transfuse 2 units PRBCs 03/01. transfused 1 unit PRBCs on 03/14 ENDO: Diabetes mellitus Hypoglycemia History of prior adrenal insufficiency with shock Gout EGD colonoscopy completed 02/22. gastritis and esophagitis, colon polyps Started Hydrocortisone 100 mg every 8 hours 02/21/17 (Recent high dose steroids use now hypotensive, hypoglycemic), steroids had been tapered off. Resumed stress dose steroids on 03/16 as patient back on Levophed for pressor support after intubation. Continue at 50 mg IV every 6 hours Accu-Cheks to maintain euglycemia Novulin R every 4 hours. Low Regimen Currently on insulin detemir 25 units twice a day for hyperglycemia MSK: Right distal ulna fracture. Dr. Nathan with orthopedics has evaluated and recommended nonoperative management. Right wrist splint in place. PROPH: Lansoprazole 30 mg twice a day twice a day for stress ulcer prophylaxis. Has IVC filter. Therapeutic enoxaparin was placed on hold for retroperitoneal hematoma ACCESS: right IJ CVL placed 03/03-03/20. A left IJ hemodialysis catheter placed 03/01 - 03/23. Left femoral A line placed 03/14 - discontinued 03/19 my billing statement This patient remains critically ill with one or more organ systems which are or may become a threat to life. I have spent in excess of 47 minutes discontinuously in the care and management of this patient. This time is exclusive of procedures, and includes, but is not limited to, evaluation of the patient, review of the medical record, discussions with family, consultants, nursing staff, or respiratory therapy, and documentation in the medical record. Physician Jailene Hernandez Problem Qualifiers (1) Aspiration pneumonia: (2) DVT (deep venous thrombosis): Qualified Codes: I82.443 - Acute embolism and thrombosis of tibial vein, bilateral (3) Acute renal failure: Qualified Codes: N17.9 - Acute kidney failure, unspecified (4) Diabetes mellitus: (5) Gout: Jailene Hernandez MD Apr 12, 2017 17:29
[2017-04-12] MEDS ORDERED: MIDAZOLAM HCL 5 MG/ML VIAL (1 ML) ONE (17:32)
[2017-04-12] MEDS ORDERED: MIDAZOLAM HCL 2 MG/2 ML VIAL IV PUSH ONE (17:45)
--- NOTE | 2017-04-12 18:15 | RADRPT ---
EXAM DATE/TIME: 04/12/2017 17:51 [facility] COMPARISON: No previous studies available for comparison. INDICATIONS : Reaspritory distress. RADIATION DOSE: 5.2 CTDIvol (mGy) MEDICAL HISTORY : Cardiovascular disease. Hypertension. SURGICAL HISTORY : None. ENCOUNTER: Initial ACUITY: 1 day PAIN SCALE: Non-responsive LOCATION: Bilateral chest TECHNIQUE: Volumetric scanning of the chest was performed. Using automated exposure control and adjustment of t he mA and/or kV according to patient size, radiation dose was kept as low as reasonably achievable to obtain optimal diagnostic quality images. DICOM format image data is available electronically for r eview and comparison. Follow-up recommendations for detected pulmonary nodules are based at a minimum on nodule size and pa tient risk factors according to Fleischner Society Guidelines. FINDINGS: Comparison is February 27. There is a slight increase in bilateral pleural effusions, left greater denisse n right with basilar atelectasis. No hilar, mediastinal or axillary adenopathy. Tracheostomy tube is present in good position. Moderate coronary calcifications. No acute findings in the upper abdomen. CONCLUSION: 1. Slight increase in size of bilateral effusions and basilar atelectasis, left greater than right co mpared with February 27. Tracheostomy in good position. Trace Holloway MD on April 12, 2017 at 18:10 Board Certified Radiologist. This report was verified electronically.
[2017-04-12] MEDS: LINEZOLID 600 MG PREMIX 300 ML IV SCH (18:39)
[2017-04-12] MEDS: metroNIDAZOLE 500 MG INJ 100 ML IV SCH (18:39)
[2017-04-12] MEDS: FUROSEMIDE 40 MG/4 ML VIAL IV PUSH SCH (18:40)
[2017-04-12 20:38] LABS: HEMATOCRIT 25.8 % (39.0-51.0); MEAN CELL VOLUME 87.5 FL (80.0-100.0); MEAN CORPUSCULAR HEMOGLOBIN 27.1 PG (27.0-34.0); PLATELET COUNT 359 TH/MM3 (150-450); RED BLOOD COUNT 2.95 MIL/MM3 (4.50-5.90); RED CELL DISTRIBUTION WIDTH 16.3 % (11.6-17.2); REVIEW FLAG FINAL; WHITE BLOOD COUNT 18.6 TH/MM3 (4.0-11.0)
[2017-04-12 20:50] LABS: INTERNATIONAL NORMALIZED RATIO 1.1 RATIO; PROTHROMBIN TIME - PATIENT 12.3 SEC (9.8-11.6)
[2017-04-12] MEDS: RESP: ALBUTEROL 2.5 MG/IPRATROPIUM 0.5 MG NEB (SCH) NEB (20:54)
[2017-04-12] MEDS: CEFTOLOZANE-TAZOBACTAM INJ 1,500 MG in SODIUM CHLORIDE 0.9% INJ 100 ML IV SCH (21:32)
[2017-04-12] MEDS: ATORVASTATIN 10 MG TAB PO SCH (21:33)
[2017-04-12] MEDS: RESP: ACETYLCYSTEINE 20% 30 ML NEB NEB SCH (22:00)
[2017-04-13] VITALS (20 sets, daily range): BP systolic 109–149; BP diastolic 64–75; PULSE 83–100; RESP 20–22; TEMP 97.8–100.2; O2SAT 93–99
[2017-04-13] MEDS: CEFTOLOZANE-TAZOBACTAM INJ 1,500 MG in SODIUM CHLORIDE 0.9% INJ 100 ML IV SCH ×3 (02:13→16:54)
[2017-04-13] MEDS: metroNIDAZOLE 500 MG INJ 100 ML IV SCH ×2 (02:13→08:33)
[2017-04-13] MEDS: oxyCODONE HCL ORAL CONC 5 MG/0.25 ML SYRINGE PO SCH ×6 (03:35→21:16)
[2017-04-13] MEDS: RESP: ACETYLCYSTEINE 20% 30 ML NEB NEB SCH (03:51)
[2017-04-13] MEDS: RESP: ALBUTEROL 2.5 MG/IPRATROPIUM 0.5 MG NEB (SCH) NEB ×4 (03:51→20:04)
[2017-04-13 04:31] LABS: BLOOD GAS BASE EXCESS 0.2 mmol/L (-2-2); BLOOD GAS CARBOXYHEMOGLOBIN 2.1 % (0-4); BLOOD GAS HCO3 24 mmol/L (22-26); BLOOD GAS METHEMOGLOBIN 1.3 % (0-2); BLOOD GAS O2 HGB SATURATION 94 % (90-100); BLOOD GAS OXYGEN CONTENT 10.5 Vol % (12.0-20.0); BLOOD GAS PCO2 35 mmHg (38-42); BLOOD GAS PO2 85 mmHg (61-120); BLOOD GAS TOTAL HGB 7.9 G/DL (12.0-16.0); CRITICAL VALUE NO; OXYGEN DEVICE VENTILATOR; TEMP CORR TO 98.6
[2017-04-13 04:32] LABS: DRAW SITE RT RADIAL; FIO2 35 %; NUMBER OF ARTERIAL PUNCTURES 1; STAT NO; ULNAR PULSE PRESENT; VENT SETTINGS AC12/500/+5/
[2017-04-13] MEDS: LINEZOLID 600 MG PREMIX 300 ML IV SCH ×2 (05:00→18:00)
[2017-04-13] MEDS: FREE WATER G-TUBE SCH ×4 (05:10→16:53)
[2017-04-13] MEDS: HYDROCORTISONE 10 MG TAB PO SCH ×2 (05:10→16:53)
[2017-04-13] MEDS: INSULIN ASPART SUPPLEMENTAL SCALE SQ SCH ×4 (08:00→21:00)
[2017-04-13 08:01] LABS: AUTOMATED NEUTROPHIL # 16.1 TH/MM3 (1.8-7.7); BASOPHIL # 0.1 TH/MM3 (0-0.2); BASOPHIL % 0.7 % (0.0-2.0); EOSINOPHIL # 0.7 TH/MM3 (0-0.4); EOSINOPHIL % 3.8 % (0.0-4.0); HEMATOCRIT 25.2 % (39.0-51.0); LYMPH % 4.9 % (9.0-44.0); MEAN CELL VOLUME 87.8 FL (80.0-100.0); MEAN CORPUSCULAR HEMOGLOBIN 28.2 PG (27.0-34.0); MEAN CORPUSCULAR HGB CONC 32.2 % (32.0-36.0); MONO % 7.6 % (0.0-8.0); PLATELET COUNT 344 TH/MM3 (150-450); RED BLOOD COUNT 2.87 MIL/MM3 (4.50-5.90); RED CELL DISTRIBUTION WIDTH 16.7 % (11.6-17.2); WHITE BLOOD COUNT 19.4 TH/MM3 (4.0-11.0)
[2017-04-13 08:09] LABS: HEMO FLAGS AUTO DIFF
[2017-04-13 08:27] LABS: BICARBONATE 24.1 MEQ/L (21.0-32.0); MAGNESIUM 1.4 MG/DL (1.5-2.5)
[2017-04-13] MEDS: SODIUM CHLORIDE 0.9% FLUSH 10 ML FLUSH IV FLUSH SCH ×3 (08:36→21:20)
[2017-04-13] MEDS: CHOLESTYRAMINE 4 GM PACKET G-TUBE SCH ×2 (08:36→21:20)
[2017-04-13] MEDS: INSULIN DETEMIR 100 UNITS/ML VIAL SQ SCH ×2 (08:37→21:00)
[2017-04-13] MEDS: CHLORHEXIDINE 0.12% (ORAL KIT) 15 ML CUP MT SCH ×2 (08:40→20:00)
[2017-04-13 08:45] LABS: BANDS 4 % (0-6); BASOPHILS 1 % (0-2); EOSINOPHILS 4 % (0-4); METAMYELOCYTES 5 % (0-1); MYELOCYTES 4 % (0-0); NEUTROPHIL # MANUAL DIFF 17.8 TH/MM3 (1.8-7.7); PLATELET ESTIMATE SMEAR NORMAL (NORMAL); PLATELET MORPHOLOGY NORMAL (NORMAL); POLYS (SEG NEUTROPHILS) 79 % (16-70); SCAN/DIFF FINAL DIFF MANUAL; WBC DIFF SAMPLE 100
--- NOTE | 2017-04-13 08:46 | HHI.CCPN ---
Subjective Remarks/Hospital Course Date of admission: 01/22 Date of critical care medicine consult 02/10 due to acute hypoxemic respiratory failure requiring emergent intubation 62-year-old male with a past medical history of hypertension, hyperlipidemia, diabetes mellitus, gout, uric acid kidney stones, kidney disease of unknown stage who originally presented to [facility] emergency department on 01/22 after a fall in which he sustained a right distal ulna fracture. He had been experiencing a gradual primarily lower extremity weakness as well as upper extremity weakness that was progressive. Neurology consult was obtained. MRI revealed no acute stroke. He had multifocal white matter changes. Tiny lacunar infarcts of the brainstem. Lumbar MRI report states L4-L5 disc protrusion with cetnral canal stenosis. Dr. Blackwell evaluated and states no cord compression on MRI C/T spine and recommended nonoperative management. Symptoms were felt to be consistent with transverse myelitis and he underwent Solumedrol 250 mg IV q6 hours 01/27-02/02. He also was found to have occlusive thrombus in the bilateral posterior tibial veins. Heparin was being avoided because he had traumatic lumbar puncture on 01/26 and 02/01. IVC filter was placed 01/25. He was undergoing physical therapy, reportedly making some improvements with plan to eventually discharged home with his son (max assist standing, and bed to chair per PT note). Apparently he had some vomiting the evening of 02/09 and additional vomiting on 02/10. He had a fever 102.8 on 02/09. Last recorded bowel movement was 02/03. Tonight he had acute onset of severe hypoxemia and respiratory distress. [facility] called and he was brought emergently to [facility] where his sats were 64% on 100% nonrebreather with mean arterial pressure 44. He was emergently intubated, CVL and art line placed. He is in septic shock. SUBJ: 02/11: Patient remains intubated sedated, critically ill. FiO2 reduced to 80% after increasing PEEP to 12. In severe septic shock Levophed at 16 mcg/m, vasopressin at 0.04 international units. D/W vascular surgery Dr. Enciso. He performed bedside Left upper extremity incision and debridement and excision of septic cephalic vein. 02/12: Remains intubated sedated profoundly septic, in shock on vasopressin and 7 mcg/min Levophed. FiO2 has improved to 45%, WBC count remains elevated with 20 ,000 white count significant left shift. Slight improvement in creatinine 2.9 urine output 750 ml 24 hours. 2-D echo shows LV ejection fraction 20-25%, no vegetation reported. Blood cultures 4 staph aureus. Wound culture pending 02/13: Remains critically ill but stable to improving. WBC count is down to 16, creatinine improving to 2.36. Off all pressors. Urine output also improving. 1.5L in 24 hours 02/14: Extubated 02/13. Tolerating well. WBC now down to 12.8. Creat improving 2.3 to 2. UO 3.4L. remains off all pressors. Was started on Precedex yesterday night for agitation, currently on 0.5 g per KG per hour. Chest x-ray shows left more than right air space disease 02/20/17 Re consult: 62-year-old male who was originally admitted for lower extremity weakness and found to have what was thought to be possible transverse myelitis. His hospital course his included a healthcare associated pneumonia, septic thrombophlebitis, DVT. He was most recently in the hospital floor where he had significant nausea and vomiting and diarrhea. His C. difficile test was recently negative. However, he has experienced worsening acute on chronic renal failure, hypotension, tachycardia, and severe hypoxemia. He did have a bout of vomiting earlier today, and his hospitalist attending suspects that he may have aspirated. He arrives by rapid response to the ICU with a nonrebreather in place in severe respiratory distress with SPO2 of 85%. I emergently intubate the patient, see separate procedure note for details. At this point the patient was hypotensive and tachycardic. He does have a history of an EF of 20%, however clinically he appears in florid septic shock. I placed central line and arterial line started vasopressors and gentle IV fluid resuscitation with 1 L of LR. Patient today was empirically broadened to vancomycin and Zosyn from his oxacillin which was initially treating MSSA bacteremia. He is recultured. Critical-care medicine is consulted to evaluate and manage his worsening multiorgan system failure and decompensated septic shock 02/21: Patient remains intubated sedated. Becomes anxious tachypnea on sedation lightening. Chest x-ray shows mild left lower lobe infiltrate. WBC count is slightly improved today from 23.2 t0 21. C Diff negative. UO adequate, creat slightly worsening. 1.57 today 02/22: Remains intubated sedated tolerated CPAP yesterday, plan is for EGD/ Colonscopy. WBC count back to normal. UO adequate. Creat stable 02/23: Tolerating CPAP trials following commands. Will do a spontaneous breathing trials. Status post EGD colonoscopy yesterday -Gastritis, esophagitis. Diverticulosis and multiple polyps. Urine output adequate but creatinine increasing to 1.7 with patient requiring multiple straight catheterization. We'll reinsert Sloan. 02/24: Breathing comfortably 24 hours after extubation. Protects airway well. 02/25: Excoriate bottom, will place rectal FMS. Start pureed diet. 02/26: Afebrile. Complaining of nausea and vomiting this afternoon. Increased stool output. Continue potassium replacement today. 02/27: 10 PM overnight, acutely hypotensive. Received 3 units PRBCs. Antibiotic coverage broadened to piperacillin/tazobactam, cortisol and 1 dose of vancomycin. Oxacillin drip currently on hold. Symptomatically, patient continues to vague abdominal pain/nausea vomiting which is unchanged for the past several days. Lipase elevated yesterday. Lactic acid normal. Troponin normal. Urinary retention after removal of Sloan. Straight catheter 1300. Cc 02/28: New diagnosis large retroperitoneal hematoma. Received 10 PRBC, 14 FFP, 2 platelets, 1 cryo-, 6 g calcium chloride, 2 is magnesium sulfate and 4 mg Bumex. CTA abdomen revealed possible arterial bleeds iliac, lumbar. Patient is currently on norepinephrine and epinephrine drips and possible need right nephrostomy tube placement due to large hematoma compressing ureter. Intra-abdominal bladder pressures are currently 13 03/01: Afebrile. Received 25 g albumin and 1 unit PRBCs overnight. Intra- abdominal bladder pressures currently 19. Currently on 3 micrograms per minute of norepinephrine. [id number] 1 out of 4 on 4 mics grams per kilogram per minute of cisatracurium. 03/02: Slightly hypothermic overnight. Hemoglobin appears to have stabilized. Troponin bump overnight likely secondary to demand ischemia from hypotension. Hemodynamically stable off all vasopressors. 03/03: Received 1 PRBCs overnight. 3 units currently. Off all vasopressors. Likely rebleeding. Stool is dark. 03/04: Remains unstable. Ventilator dependent. 03/05: afebrile. hgb stable. 03/06: bumex drip started overnight. good uop after bumex initiated. still grossly volume overloaded. Cr downtrending. more awake with transition to propofol. still too volume overloaded to tolerate extubation. hgb stable. 03/07: Afebrile. Tolerating tube feeds at goal with Nepro. Positive BM. On low-dose fentanyl and propofol drips. Potassium currently being replaced. 03/08: Eyes will open on ventilator. Afebrile. Tolerating tube feeding. Failed PSV trial yesterday due to apnea. 03/09: Following commands. Tmax 101. Tolerating tube feeding. One hour PSV trial yesterday. Currently tolerating well so far today 1.5 hours 03/10: Low-grade temperatures. Tolerating PSV trial 10 hours yesterday. Currently at 5/5 at 35%. We'll probably attempt extubation a.m. after hemodialysis. 03/11: Extubated currently in 4 L nasal cannula. Thick secretions thick clear with cough. Currently afebrile. Tolerating diet previously. 03/12: Sleepy this morning but arouses. Following commands. Refusing diet at the present time. On 2 L nasal cannula. 03/13: Patient reintubated last night for worsening respiratory status. Currently sedated on mechanical ventilation. Became hypotensive following intubation and is on Levophed 20 mics per minute. 03/14: Sedated, orally intubated on mech vent at the time of my evaluation this AM, subsequently underwent perc trach placement. Remains on levophed for pressor support. Transfused 1 unit PRBCs today. Persisten 03/15: Trach site clean, dry. CXR with bilateral basilar infiltrates. 03/16: Pulmonary congestion persists. Clinical condition not improving. Prognosis becoming increasingly bleak. 03/17: Glucose intolerance worse. No improvement in neurological function. 03/18: Remains on mechanical ventilation via tracheostomy. Off pressors now. Neurologic status remains poor. 03/19: Drowsy, encephalopathic, arousable. On mechanical ventilation via tracheostomy. Levemir increased for hyperglycemia today. Remains off pressors 03/20: More awake, moves both upper extremities. On mechanical ventilation via tracheostomy. Daily C Pap trials ongoing. 03/21: Awake and alert. On mechanical ventilation via tracheostomy. Opens and closes eyes on command. 03/22: Awake and alert. Tolerated T PIECE for 7 hours yesterday. Dialyzed today. 03/23: Currently on T piece trial. Status post dialysis yesterday on 3 L. Awake and alert. Wants to eat. Subjective 03/24: Currently afebrile. Hemodialysis catheter discontinued yesterday from left IJ. Persistent leukocytosis noted. Potassium will be replaced. Furosemide 40 mg twice a day IV to 20 mg IV twice a day 03/25: WBC count unchanged. Patient on T piece with humidified air greater than 48 hours, tolerating it well. Reconsulted 04/12: The patient was transferred emergently from the floor/ [facility]. Patient was initially seen by machine plaster mixer Dr. Estrada, and the patient was noted to be tachypneic on T piece of 40%. ABGs were performed which showed a PaO2 of 60 on T piece of FiO2 of 40%. 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 Concern for mucus plugging versus fluid. The patient was transferred emergently to [facility] placed on a ventilator CT of the chest is pending. Upon arrival in the room the patient is alert and oriented, mouthing words, nodding head to yes and no questions O2 sat is 100% but patient is currently on mechanical ventilation. Currently in no respiratory distress. 04/13: Tmax 99.8. The patient's oxygen requirements have decreased currently FiO2 35% with a PaO2 1 blood gas of 85, O2 saturation 100%. No respiratory distress noted. Patient underwent CT of the chest yesterday noted pleural effusions left greater than right, diagnostic/and therapeutic CT thoracentesis plan for this a.m.. Objective Vital Signs Date Time Temp Pulse Resp B/P (MAP) Pulse Ox O2 Delivery O2 Flow Rate FiO2 04/13/17 06:00 83 04/13/17 04:20 97 35 04/13/17 04:00 99.8 20 109/66 (80) 04/12/17 10:00 Trach Collar 6.00 T-Piece Intake and Output 04/13/17 04/13/17 04/14/17 08:00 16:00 00:00 Output Total 1925 ml Balance -1925 ml Result Diagram: 04/13/17 0737 04/13/17 0737 Other Results Microbiology Date/Time Source Procedure Growth Status 04/13/17 00:00 Urine Catheterized Urine Legionella Antigen - Final PRESUMPTIVE NEGATIVE FOR LEGIONELLA P... Complete Laboratory Tests Test 04/12/17 13:32 04/13/17 04:23 Blood Gas Puncture Site RT RADIAL RT RADIAL Blood Gas Patient Temperature 98.6 98.6 Blood Gas HCO3 24 mmol/L (22-26) 24 mmol/L (22-26) Blood Gas Base Excess 0.4 mmol/L (-2-2) 0.2 mmol/L (-2-2) Blood Gas Oxygen Saturation 89 % (90-100) 94 % (90-100) Arterial Blood pH 7.45 (7.380-7.420) 7.45 (7.380-7.420) Arterial Blood Partial Pressure CO2 35 mmHg (38-42) 35 mmHg (38-42) Arterial Blood Partial Pressure O2 60 mmHg (61-120) 85 mmHg (61-120) Arterial Blood Oxygen Content 11.8 Vol % (12.0-20.0) 10.5 Vol % (12.0-20.0) Arterial Blood Carboxyhemoglobin 2.4 % (0-4) 2.1 % (0-4) Arterial Blood Methemoglobin 1.0 % (0-2) 1.3 % (0-2) Blood Gas Hemoglobin 9.4 G/DL (12.0-16.0) 7.9 G/DL (12.0-16.0) Oxygen Delivery Device T-PIECE VENTILATOR Blood Gas Liter Flow 6 L/M Blood Gas Inspired Oxygen 40 % 35 % Blood Gas Ventilator Setting AC12/500/+5/ Imaging Last Impressions Chest CT 04/12/17 1558 Signed Impressions: Service Date/Time: March 17:51 - CONCLUSION: 1. Slight increase in size of bilateral effusions and basilar atelectasis, left greater than right compared with February 27. Tracheostomy in good position. Trace Holloway MD Chest X-Ray 04/12/17 1248 Signed Impressions: Service Date/Time: March 10:59 - CONCLUSION: New hazy opacity involving most of the left hemithorax suggesting either large pleural effusion or developing infiltrates. Stable left lower lung consolidation. Candido Patton MD Renal Ultrasound 04/02/17 0000 Signed Impressions: Service Date/Time: Sunday, April 02, 2017 16:59 - CONCLUSION: Limited exam with the left kidney being unable to be evaluated in the bladder not distended. There do appear to be multiple shadowing stones at the right kidney without hydronephrosis. Angelo Manzo MD Wrist X-Ray 03/27/17 0000 Signed Impressions: Service Date/Time: Monday, March 27, 2017 13:21 - CONCLUSION: 1. No acute fracture is identified. A portion of the previously documented distal ulna fracture remains visualized. 2. 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 Angelo Allen MD Aortography 02/28/17 0000 Signed Impressions: Service Date/Time: Tuesday, February 28, 2017 08:01 - CONCLUSION: 1. Active hemorrhage from distal right lateral sacral and iliolumbar branches successfully coil and Gelfoam embolized, as above. Juan Bhakta MD Abdomen/Pelvis CT 02/28/17 0000 Signed Impressions: Service Date/Time: Tuesday, February 28, 2017 06:51 - CONCLUSION: 1. The right retroperitoneal hematoma has increased in size, as above. There are 2 serpiginous arterially enhancing structures visualized, one in the right psoas muscle and another extending into the hematoma at the right iliac fossa. These could represent sites of continued active bleeding. 2. Stable moderate size left and small right pleural effusion with associated compressive atelectasis. 3. Stable small volume of free fluid in the abdomen and pelvis. There is also anasarca. The findings concerning the retroperitoneal hematoma were discussed with Dr. Aguiar via telephone at approximately 7: 10 AM on 02/28/2017. Angelo Allen MD Abdomen X-Ray 02/26/17 0000 Signed Impressions: Service Date/Time: Sunday, February 26, 2017 14:52 - CONCLUSION: 1. Nonobstructive bowel gas pattern. Juan Bhakta MD Upper Extremity Ultrasound 02/10/17 0000 Signed Impressions: Service Date/Time: Friday, February 10, 2017 18:46 - CONCLUSION: Occlusive thrombus in the cephalic and basilic veins. Benjamin Person MD Lung Scan- Nuclear Medicine 02/10/17 0000 Signed Impressions: Service Date/Time: Friday, February 10, 2017 22:17 - CONCLUSION: Low probability pulmonary embolism. Candido Patton MD Head CT 02/10/17 0000 Signed Impressions: Service Date/Time: Friday, February 10, 2017 23:51 - CONCLUSION: Negative noncontrast CT brain. Candido Patton MD Lumbar Puncture Fluoroscopy 02/01/17 0000 Signed Impressions: Service Date/Time: January 09:35 - CONCLUSION: Uncomplicated fluoroscopically guided lumbar puncture. CSF was clear. Nabeel Peralta MD Head Magnetic Resonance Angiography 01/27/17 0000 Signed Impressions: Service Date/Time: Friday, January 27, 2017 10:33 - CONCLUSION: No intracranial vascular abnormality is identified. There is no aneurysm visualized. Angelo Allen MD IVC Filter Placement X-Ray 01/25/17 Signed Impressions: Service Date/Time: January 10:29 - CONCLUSION: Uncomplicated inferior vena cava filter placement as above. Yung Fowler MD Thoracic Spine MRI 01/24/17 0000 Signed Impressions: Service Date/Time: Tuesday, January 24, 2017 22:29 - CONCLUSION: 1. Mild degenerative spondylosis most prominently at T11-L1 with slight effacement of the anterior thecal sac and left lateral recess. No significant neural foraminal stenosis. 2. No acute fracture. Juan Bhakta MD Lumbar Spine MRI 01/23/17 0000 Signed Impressions: Service Date/Time: Monday, January 23, 2017 17:01 - CONCLUSION: 1. At L4-5 is a broad-based disc protrusion with severe central canal and lateral recess stenosis and flattening of the exiting right L4 nerve root. 2. L5-S1 there is a disc protrusion and moderate stenosis with flattening of the exiting L5 nerve roots bilaterally. 3. At L3-4 there is a moderate to severe central stenosis and lateral recess stenosis with mild foraminal stenosis. 4. No acute fracture or spondylolisthesis. Trace Holloway MD Lower Extremity Ultrasound 01/23/17 Signed Impressions: Service Date/Time: Monday, January 23, 2017 09:53 - CONCLUSION: Bilateral focal lower extremity DVT involving the posterior tibial veins. Angelo Garrido MD Cervical Spine MRI 01/23/17 0000 Signed Impressions: Service Date/Time: Monday, January 23, 2017 17:01 - CONCLUSION: 1. Multilevel cervical spine degenerative changes as above. 2. Mild degrees of spinal stenosis at C3/C4-C6/C7. No cord compression or cord signal abnormality. 3. Age indeterminate left paracentral/foraminal disc protrusion at C6/C7. 4. Multilevel foraminal stenosis, most severe on the left at C6/C7. Please see individual levels above. 5. No fracture or subluxation of the cervical spine. Angelo Garrido MD Brain MRI 01/23/17 0000 Signed Impressions: Service Date/Time: Monday, January 23, 2017 17:01 - CONCLUSION: 1. No acute stroke or other acute intracranial abnormality demonstrated. 2. Moderate severity chronic white matter changes, nonspecific but most likely related to chronic small vessel disease. 3. Few scattered tiny lacunar infarcts of the brainstem. 4. Given the findings are not entirely specific, clinical evaluation for possible multiple sclerosis recommended. Angelo Garrido MD Knee X-Ray 01/22/[id number] Signed Impressions: Service Date/Time: Sunday, January 22, 2017 21:17 - CONCLUSION: 1. Evidence of moderate to large joint effusion. 2. No acute fracture or malalignment. 3. Mild 3 compartment osteoarthritic change. Benjamin Person MD Hip and Pelvis X-Ray [id number]/22/[id number] Signed Impressions: Service Date/Time: Sunday, January 22, 2017 21:10 - CONCLUSION: 1. Mild to moderate degenerative change of both hips with no acute fracture or malalignment. There is flattening and remodeling of the right humeral head. Benjamin Person MD Last Impressions Chest X-Ray 03/14/17 Signed Impressions: Service Date/Time: Tuesday, March 14, 2017 13:41 - CONCLUSION: 1. Tracheostomy in good position. 2. Left lower lung infiltrates and left pleural effusion. Candido Patton MD Aortography 02/28/17 0000 Signed Impressions: Service Date/Time: Tuesday, February 28, 2017 08:01 - CONCLUSION: 1. Active hemorrhage from distal right lateral sacral and iliolumbar branches successfully coil and Gelfoam embolized, as above. Juan Bhakta MD Abdomen/Pelvis CT 02/28/17 0000 Signed Impressions: Service Date/Time: Tuesday, February 28, 2017 06:51 - CONCLUSION: 1. The right retroperitoneal hematoma has increased in size, as above. There are 2 serpiginous arterially enhancing structures visualized, one in the right psoas muscle and another extending into the hematoma at the right iliac fossa. These could represent sites of continued active bleeding. 2. Stable moderate size left and small right pleural effusion with associated compressive atelectasis. 3. Stable small volume of free fluid in the abdomen and pelvis. There is also anasarca. The findings concerning the retroperitoneal hematoma were discussed with Dr. Aguiar via telephone at approximately 7: 10 AM on 02/28/2017. Angelo Allen MD Chest CT 02/27/17 0000 Signed Impressions: Service Date/Time: Monday, February 27, 2017 18:12 - CONCLUSION: 1. Bilateral pleural effusions with bibasilar atelectasis, left greater than right. Tom Sanchez MD Abdomen X-Ray 02/26/17 0000 Signed Impressions: Service Date/Time: Sunday, February 26, 2017 14:52 - CONCLUSION: 1. Nonobstructive bowel gas pattern. Juan Bhakta MD Upper Extremity Ultrasound 02/10/17 0000 Signed Impressions: Service Date/Time: Friday, February 10, 2017 18:46 - CONCLUSION: Occlusive thrombus in the cephalic and basilic veins. Benjamin Person MD Lung Scan- Nuclear Medicine 02/10/17 0000 Signed Impressions: Service Date/Time: Friday, February 10, 2017 22:17 - CONCLUSION: Low probability pulmonary embolism. Candido Patton MD Head CT 02/10/17 0000 Signed Impressions: Service Date/Time: Friday, February 10, 2017 23:51 - CONCLUSION: Negative noncontrast CT brain. Candido Patton MD Wrist X-Ray 02/06/17 0000 Signed Impressions: Service Date/Time: Monday, February 06, 2017 12:50 - CONCLUSION: Minimally displaced distal radius and ulnar fractures. Armando Dodd MD Lumbar Puncture Fluoroscopy 02/01/17 0000 Signed Impressions: Service Date/Time: January 09:35 - CONCLUSION: Uncomplicated fluoroscopically guided lumbar puncture. CSF was clear. Nabeel Peralta MD Head Magnetic Resonance Angiography 01/27/17 Signed Impressions: Service Date/Time: Friday, January 27, 2017 10:33 - CONCLUSION: No intracranial vascular abnormality is identified. There is no aneurysm visualized. Angelo Allen MD IVC Filter Placement X-Ray 01/25/17 Signed Impressions: Service Date/Time: January 10:29 - CONCLUSION: Uncomplicated inferior vena cava filter placement as above. Yung Fowler MD Thoracic Spine MRI 01/24/17 Signed Impressions: Service Date/Time: Tuesday, January 24, 2017 22:29 - CONCLUSION: 1. Mild degenerative spondylosis most prominently at T11-L1 with slight effacement of the anterior thecal sac and left lateral recess. No significant neural foraminal stenosis. 2. No acute fracture. Juan Bhakta MD Renal Ultrasound 01/23/17 Signed Impressions: Service Date/Time: Monday, January 23, 2017 08:53 - CONCLUSION: 1. Evidence of chronic parenchymal disease of both kidneys. No obstructive uropathy or other acute abnormality demonstrated. 2. Trace ascites, nonspecific. Angelo Garrido MD Lumbar Spine MRI 01/23/17 Signed Impressions: Service Date/Time: Monday, January 23, 2017 17:01 - CONCLUSION: 1. At L4-5 is a broad-based disc protrusion with severe central canal and lateral recess stenosis and flattening of the exiting right L4 nerve root. 2. L5-S1 there is a disc protrusion and moderate stenosis with flattening of the exiting L5 nerve roots bilaterally. 3. At L3-4 there is a moderate to severe central stenosis and lateral recess stenosis with mild foraminal stenosis. 4. No acute fracture or spondylolisthesis. Trace Holloway MD Lower Extremity Ultrasound 01/23/17 Signed Impressions: Service Date/Time: Monday, January 23, 2017 09:53 - CONCLUSION: Bilateral focal lower extremity DVT involving the posterior tibial veins. Angelo Garrido MD Cervical Spine MRI 01/23/17 Signed Impressions: Service Date/Time: Monday, January 23, 2017 17:01 - CONCLUSION: 1. Multilevel cervical spine degenerative changes as above. 2. Mild degrees of spinal stenosis at C3/C4-C6/C7. No cord compression or cord signal abnormality. 3. Age indeterminate left paracentral/foraminal disc protrusion at C6/C7. 4. Multilevel foraminal stenosis, most severe on the left at C6/C7. Please see individual levels above. 5. No fracture or subluxation of the cervical spine. Angelo Garrido MD Brain MRI 01/23/17 0000 Signed Impressions: Service Date/Time: Monday, January 23, 2017 17:01 - CONCLUSION: 1. No acute stroke or other acute intracranial abnormality demonstrated. 2. Moderate severity chronic white matter changes, nonspecific but most likely related to chronic small vessel disease. 3. Few scattered tiny lacunar infarcts of the brainstem. 4. Given the findings are not entirely specific, clinical evaluation for possible multiple sclerosis recommended. Angelo Garrido MD Knee X-Ray 01/22/[id number] Signed Impressions: Service Date/Time: Sunday, January 22, 2017 21:17 - CONCLUSION: 1. Evidence of moderate to large joint effusion. 2. No acute fracture or malalignment. 3. Mild 3 compartment osteoarthritic change. Benjamin Person MD Hip and Pelvis X-Ray 01/22/172053 Signed Impressions: Service Date/Time: Sunday, January 22, 2017 21:10 - CONCLUSION: 1. Mild to moderate degenerative change of both hips with no acute fracture or malalignment. There is flattening and remodeling of the right humeral head. Benjamin Person MD Objective Remarks BP 114/82 Pulse 82 O2sat 95% on mechanical ventilation settings 12/500/5, FIO2 .35 GENERAL: 62-year-old male, resting in bed, on mechanical ventilation via tracheostomy in no apparent distress nodding head to yes and no questions HEENT: Normocephalic. Atraumatic. Pupils equal, round, reactive. NECK: Tracheostomy in place, around trach site erythematous, yellowish drainage CHEST: On mechanical ventilation tracheostomy, air entry decreased bilaterally . Trach site reddened with noted yellowish-green drainage CARDIOVASCULAR: S1-S2 regular, no gallop or murmur ABDOMEN distended. No rigidity. Umbilical hernia is reducible. No guarding. PEG tube in place : Positive scrotal edema Sloan in situ MUSCULOSKELETAL: Pulses 2+. 1+ bilateral upper and lower extremity edema. NEUROLOGICAL: Awake and alert, has spontaneous eye opening. Opens and closes eyes on command. Moves 4 limbs weakly to stimulation. Procedures 01/25/2017- Retrievable IVC Filter placement 01/26/17-lumbar puncture with fluoroscopy-by interventional radiology 02/01/17- lumbar puncture fluoroscopy by interventional radiology 02/10/17- Endotracheal Intubation 02/10/17-left IJ central venous line placed 02/10/17-left femoral arterial line placed 02/11/17-Diagnostic and therapeutic bronchoscopy with bronchoalveolar lavage 02/11/17-Left upper extremity incision and debridement with excision of septic cephalic vein 02/13/17- Extubated 02/20/17- endotracheal intubation 02/20/17- Left subclavian central line placement 02/20/17-Right radial A-line placement 02/22/17-EGD/colonoscopy 02/28/17-right radial a line 02/28/17- Endotracheal intubation 02/28/17- right sided introducer catheter placement 02/28/17- Right IJ central line placement 02/28/17-Right chest tube placement 02/28/17- Embolization of inferior and superior sacral branches of right internal iliac artery 03/01/17- Hemodialysis access catheter 03/03/17-Right IJ central line placement 03/11/17-Extubated 03/13/17- Endotracheal intubation 03/14/17-Tracheostomy placement, trach downsized to 6.0 Anni 03/30/17 03/15/17-PEG tube placement 04/11/17-CT Chest Date of Insertion: Feb 20, 2017 Date of Insertion: Mar 03, 2017 Line: Central Venous Catheter Side: Right Location: Internal, Jugular A/P Problem List: (1) Septic shock ICD Code: A41.9 - Sepsis, unspecified organism; R65.21 - Severe sepsis with septic shock Status: Acute (2) Acute respiratory failure ICD Code: J96.00 - Acute respiratory failure, unspecified whether with hypoxia or hypercapnia Status: Acute (3) Thrombophlebitis arm ICD Code: I80.8 - Phlebitis and thrombophlebitis of other sites (4) Aspiration pneumonia ICD Code: J69.0 - Pneumonitis due to inhalation of food and vomit Status: Acute (5) Atelectasis of left lung ICD Code: J98.11 - Atelectasis Status: Acute (6) Quadriparesis ICD Code: G82.50 - Quadriplegia, unspecified Status: Acute (7) DVT (deep venous thrombosis) ICD Code: I82.409 - Acute embolism and thrombosis of unspecified deep veins of unspecified lower extremity (8) Altered mental status ICD Code: R41.82 - Altered mental status, unspecified Status: Acute (9) CKD (chronic kidney disease) stage 3, GFR 30-59 ml/min ICD Code: N18.3 - Chronic kidney disease, stage 3 (moderate) Status: Chronic (10) Acute renal failure ICD Code: N17.9 - Acute kidney failure, unspecified Status: Acute (11) Diabetes mellitus ICD Code: E11.9 - Type 2 diabetes mellitus without complications Status: Chronic (12) Distal end of ulna fracture, closed ICD Code: S52.609A - Unspecified fracture of lower end of unspecified ulna, initial encounter for closed fracture Status: Acute (13) Gout ICD Code: M10.9 - Gout, unspecified Status: Chronic Assessment and Plan Assessment: NEURO/PSYCH: Acute metabolic encephalopathy- persistent Quadriparesis secondary to suspected transverse myelitis Recurrent falls Suspected transverse myelitis. Received methylprednisolone 250 mg IV every 6 hours 01/27-02/02, started back on hydrocortisone 02/21/17, initially tapering to 50 mg IV every 8 hours starting received 1 dose at 2100 prior to becoming hypotensive. weaning hydrocortisone taper and stopped 03/09. Resumed hydrocortisone 50mg IV Q6hrly on 03/14 as patient became hypotensive following intubation on 03/13 requiring levophed. Continue Hydrocortisone 50 mg IV every 6 hours LP 01/26 and 02/01. CSF culture negative 01/26, 02/01 Oligoclonal bands negative. CSF/serum IgG index is not elevated. VDRL nonreactive. Cryptococcal antigen negative. Brain MRI 01/23 no acute stroke. Few scattered lacunar infarcts of the brainstem. Moderate chronic white matter changes. MRI cervical/thoracic spine- mild spinal stenosis C3/C4 to C6/C7. No cord compression. RPR negative Neurology has been following, Dr. Crenshaw. Repeat CT brain 02/10 - negative Continue PT/OT Continue oxycodone 10 mg every 4 hours scheduled Will consider EMG and Nerve Conduction studies- physical medicine and rehabilitation consulted RESP: Acute hypoxemic respiratory failure Healthcare associated pneumonia/Aspiration Pneumonia S/P Right-sided chest tube 02/28 continue mechanical ventilation, vent bundle, PSV and T piece trials as tolerated -On T piece >48 hours. Humidified room air Albuterol/ipratropium aerosols every 6 hours with albuterol aerosols every 2 hours prn VQ scan 02/10 low probability for PE. CT chest 02/10 - left lower lobe collapse and consolidation. CT chest 02/27 revealed right greater than left pleural effusions. Extubated 02/23. Intubated 02/28. Extubated 03/11, Reintubated on 03/13. Right-sided chest tube placement 02/28 fishing manager, removed 03/05. Failed attempt to wean successfully due to volume overload and multiple organ failure. underwent perc tracheostomy 03/14. CT chest 04/12-slight increase and bilateral effusions left greater than right basilar atelectasis CXR 04/13-moderate pleural effusion left with consolidation of the left lung Pulmonology following Dr. Estrada -Patient has a 6.0 Shiley may also need bronchoscopy to require a larger size trach or intubation. CT guided thoracentesis scheduled emergently as discussed with Dr. Estrada CV: Severe sepsis - resolved. Systolic heart failure likely chronic with ejection fraction 20-25% Hyperlipidemia History of hypertension Mild TR Sinus tachycardia Elevated troponin likely type II demand ischemia Restarted on Levophed on 03/09 for following intubation, titrated off after starting hydrocortisone. Started hydrocortisone stress dose on 03/14 (as patient has been on steroids and was just tapered off on 03/09.) Patient has on hypotensive twice when attempting to wean off stress dose hydrocortisone in the past. Currently on atenolol 25 mg twice a day. Continue amlodipine 5 mg daily As needed Nitropaste, labetalol and hydralazine for hypertension Atorvastatin 10 mg by mouth daily for dyslipidemia. Troponin 0.[address]-T changes. 2-D echocardiogram 01/11 revealed EF 20-25%. Mild TR. Pulmonary arterial pressures were normal around 20 Troponin 6.55 on 03/02. Currently on furosemide 20 mg IV twice a day per nephrology GI: Large right retroperitoneal hematoma Erosive esophagitis Adematous/hyperplastic colon polyps Severe acute protein calorie malnutrition Nausea/vomiting - resolved. Diarrhea Gastritis Diverticulosis Internal and external hemorrhoids Hiatal hernia Elevated lipase 02/27 CT chest/abdomen and pelvis - 9.4 x 7.5 renal and 16 x 12 cm right psoas muscle hematoma. Fluid around liver and spleen. Right-sided nephrolithiasis CTA abdomen 02/28 - possible blushing around iliac/lumbar vessels Discussed with IR. s/p attempted embolization CT abdomen and pelvis 02/10 atrophic left kidney. Bilateral inguinal hernias fat- containing. Nonobstructing 12 mm right kidney stone repeat CT abd/pelvis did not show evidence of obstruction. patient clinically has been having diarrhea (c. diff negative 02/19). also with nausea/vomiting of unclear etiology. EGD/Colonoscopy-02/22/17 showed gastritis esophagitis, hiatal hernia, diverticulosis and multiple polyps in descending colon and sigmoid which were snared biopsied. Biopsy pending Dr. Lewis consulted for intervention if needed for elevated IAP. will continue to check as needed Status post PEG tube placement by consulted Previously on 1800-calorie ADA diet to this readmission to ICU, consult dietary for tube feeds Lansoprazole 30 mg twice a day for GI prophylaxis FEN/RENAL: Acute kidney injury in the setting of Chronic kidney disease stage 3-4 History of uric acid kidney stones with prior stent BPH Nonfunctioning left kidney Acute intravascular volume overload Hypokalemia Sloan placed due to urinary retention and worsening creatinine Maintain Sloan secondary to urinary retention Monitor intake and output q1hr. Monitor electrolytes. RIOS/SPEP negative. 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 Recommended nephrostomy tube if obstruction Nephrology consulted, hemodialysis per nephrology. Making urine. Due to acute illness holding tamsulosin 0.4 mg by mouth daily for BPH ICU electrolyte replacement protocol Last IHD was 03/22 ID: Septic shock- resolved. Abscess and Suppurative thrombophlebitis left upper extremity MSSA bacteremia Klebsiella UTI ESBL positive Acute aspiration pneumonia/HCAP Previously treated with Bactrim, ertapenem, intermittent vancomycin, nafcillin Blood cultures 2, UA ESBL positive Klebsiella UTI Sputum 03/14 - Pseudomonas came back resistant to imipenem, Stenotrophomonas maltophilia Repeat blood cultures 2 and sputum 03/08 pending. Urine negative. Antibiotics per ID ID following-Dr. Puente HEME: Acute blood loss anemia DVT, bilateral posterior tibial vein, IVC filter Septic thrombophlebitis with occlusive thrombus mid cephalic and basilic vein side Received 10 PRBC, 14 FFP, 2 platelets, 1 cryo-02/28 Received 3 units PRBCs Serial hemoglobins every 6 hours Recheck coags Ultrasound 01/23/17 - Bilateral lower extremity with occlusive posterior tibial vein DVTs. Heparin was initially started for DVT but was placed on hold due to LP with suspected traumatic tap. Currently holding full anticoagulation with enoxaparin 100 mg IV twice a day due to anemia as of 02/26 IVC filter was placed 01/25/17. Ultrasound LUE 02/10 occlusive thrombus mid cephalic vein, basilic vein.s. Transfuse 3 units PRBCs 02/27 Transfuse 2 units PRBCs 03/01. Transfused 1 unit PRBCs on 03/14 ENDO: Diabetes mellitus Hypoglycemia History of prior adrenal insufficiency with shock Gout EGD colonoscopy completed 02/22. gastritis and esophagitis, colon polyps Started Hydrocortisone 100 mg every 8 hours 02/21/17 (Recent high dose steroids use now hypotensive, hypoglycemic), steroids had been tapered off. Resumed stress dose steroids on 03/16 as patient back on Levophed for pressor support after intubation. Continue at 50 mg IV every 6 hours Accu-Cheks to maintain euglycemia Novulin R every 4 hours. Low Regimen Currently on insulin detemir 25 units twice a day for hyperglycemia MSK: Right distal ulna fracture. Recommended nonoperative management. PROPH: Lansoprazole 30 mg twice a day twice a day for stress ulcer prophylaxis. Has IVC filter. Therapeutic enoxaparin was placed on hold for retroperitoneal hematoma ACCESS: right IJ CVL placed 03/03-03/20. A left IJ hemodialysis catheter placed 03/01 - 03/23. Left femoral A line placed 03/14 - discontinued 03/19 Dispo: Discussed with Dr. Estrada and concur will perform emergent CT-guided thoracentesis, multiple attempts at contacting unsuccessful this A.M., 2 physician signature obtained,Dr. Norman (IR), Palliative Care team assembly line machine operator,and SECONDARY SPECIAL EDUCATION TEACHER at bedside (Susan) This patient remains critically ill with one or more organ systems which are or may become a threat to life. I have spent in excess of 50 minutes discontinuously in the care and management of this patient. This time is exclusive of procedures, and includes, but is not limited to, evaluation of the patient, review of the medical record, discussions with family, consultants, nursing staff, or respiratory therapy, and documentation in the medical record. Palliative care team is also following patient. Physician Jailene Hernandez Problem Qualifiers (1) Aspiration pneumonia: (2) DVT (deep venous thrombosis): Qualified Codes: I82.443 - Acute embolism and thrombosis of tibial vein, bilateral (3) Acute renal failure: Qualified Codes: N17.9 - Acute kidney failure, unspecified (4) Diabetes mellitus: (5) Gout: Jailene Hernandez MD Apr 13, 2017 08:46
[2017-04-13] MEDS: TAMSULOSIN HCL 0.4 MG CAP PO SCH ×2 (09:00→21:20)
[2017-04-13] MEDS: COLLAGENASE OINT 30 GM TUBE TOPICAL SCH ×2 (09:00→18:03)
[2017-04-13] MEDS: LACTOBACILLUS ACIDOPHILUS TAB PO SCH ×3 (09:00→16:52)
[2017-04-13] MEDS: ATENOLOL 25 MG TAB PO SCH ×2 (09:00→21:00)
[2017-04-13] MEDS: FUROSEMIDE 40 MG/4 ML VIAL IV PUSH SCH ×2 (09:00→16:53)
[2017-04-13] MEDS: LANSOPRAZOLE SOLUTAB 30 MG TAB NG SCH ×2 (09:00→21:19)
[2017-04-13] MEDS: POTASSIUM CHLORIDE 25 MEQ EFFERVESCENT TAB PO SCH ×2 (09:00→21:15)
--- NOTE | 2017-04-13 09:23 | RADRPT ---
EXAM DATE/TIME: 04/13/2017 08:41 [facility] COMPARISON: CHEST SINGLE AP, March 14, 2017, 13:41. CHEST SINGLE AP, April 01, 2017, 23:42. CHEST SINGLE A P, April 06, 2017, 14:50. CHEST SINGLE AP, April 12, 2017, 10:59. INDICATIONS : Shortness of breath. MEDICAL HISTORY : Hypertension. Renal calculi. Arthritis. Apnea. Dyspnea. Renal disease. Gout. Paresthesia. Diabetes. G ait problems. ESBL. SURGICAL HISTORY : Nasal surgery. Stents for kidney stones. Tracheostomy. ENCOUNTER: Subsequent ACUITY: 1 day PAIN SCORE: Non-responsive. LOCATION: Bilateral chest FINDINGS: Stable tracheostomy. Progressive hazy opacity throughout the left lung with worsening associated airs pace disease in the left middle and lower lung zones. Cardiomediastinal contours are stable. [place] tration of left humeral fracture. Remainder of exam is unchanged. CONCLUSION: 1. Progressive moderate left pleural effusion with worsening associated airspace disease, presumably compressive atelectasis although a component of left lower lobe consolidation may reflect pneumonia/a spiration. Juan Bhakta MD on April 13, 2017 at 9:18 Board Certified Radiologist. This report was verified electronically.
[2017-04-13] MEDS: [UNRECOGNIZED DRUG - REMARK] NEB SCH ×2 (09:27→16:13)
--- NOTE | 2017-04-13 11:07 | HHI.IDPN ---
Subjective Subjective Remarks ID Xcover for . Chart reviewed. Patient is a 62-year-old male, admitted to the hospital for evaluation of pain in his right wrist. He gave a history of falling about a week ago and apparently had immediate pain in the right wrist. He did not seek any medical attention initially because reportedly he was very busy. He eventually presented, and he was found to have a distal ulnar fracture on plain films. He also had some redness and swelling. Orthopedics saw the patient, and was being treated conservatively with the splint. During this hospitalization also he started complaining of generalized weakness but more so in his lower extremity than his upper extremity. He had swelling in both lower extremity which revealed evidence of DVT in the posterior tibial veins. Neurology had seen the patient and he underwent lumbar puncture which apparently was traumatic. Patient was therefore not given anticoagulation because of the traumatic LP, and he underwent placement of an IVC filter on January 25. Patient had another lumbar puncture on February 01. He was felt to have transverse myelitis, and he was given high-dose IV Solu-Medrol from January 27 to February 02. There was apparently some improvement in his weakness. The imaging studies done for his weakness showed some spinal stenosis, and neurosurgery was consult that and recommended that there was no surgical intervention to be done. Patient has been stabilizing, but last night apparently deteriorated, and he ended up getting intubated, and had significant hypotension requiring pressors. There was also an ultrasound done of his left upper extremity which showed DVT, and there was evidence of superior 2 thrombophlebitis. Vascular surgery was consult to it and he had IND on his left upper extremity. Patient has had some fevers since yesterday. 2 blood cultures were done yesterday and they're now reported as growing gram-positive cocci in [place] in clusters. He is currently sedated and intubated. He is on Levophed and vasopressin. A central line was placed as well as a femoral a line. He apparently had an IV in his left upper extremity and that was removed yesterday. Patient also has history of chronic kidney disease, and nephrology evaluated the patient. He was just being monitored for his renal insufficiency. Infectious disease following for MDR PSAE and kleb pneumo pneumonia. Reconsulted for low grade fever, leucocytosis, worsening CXR concern for new pneumonia. Overnight events reviewed with RN. Notes reviewed Tmax 101.2F BP ok Ont vent. Trach size was downsized, possible need for intubation per damion Mora. Patient will undergo CT guided thoracentesis followed by bronch. Secretions moderately large, with thick mucus plug like secretions. H/o DVTs bilateral LE s.p IVC filter. H/o DVTs bilateral UE. Antibiotics Zerbaxa IV Flagyl IV Zyvox IV Lines Line sites with no e.o infection Past Medical History Reviewed Allergies: Coded Allergies: levofloxacin (Verified Allergy, Severe, 01/22/17) Objective . Vital Signs Date Time Temp Pulse Resp B/P (MAP) Pulse Ox O2 Delivery O2 Flow Rate FiO2 04/13/17 10:00 86 04/13/17 09:14 93 35 04/13/17 08:00 85 04/13/17 08:00 99.8 85 21 114/68 (83) 04/13/17 06:00 83 04/13/17 04:20 97 35 04/13/17 04:00 99.8 88 20 109/66 (80) 97 04/13/17 04:00 88 04/13/17 02:00 85 04/13/17 01:17 97 35 04/13/17 00:00 100.2 88 21 118/64 (82) 98 04/13/17 00:00 88 04/12/17 22:18 98 35 04/12/17 22:00 91 04/12/17 20:00 101.2 93 23 124/64 (84) 97 04/12/17 20:00 93 04/12/17 19:25 97 35 04/12/17 18:00 100 100 04/12/17 17:24 100 45 04/12/17 16:33 99.3 92 18 130/68 (88) 93 04/12/17 12:00 99.8 95 18 131/62 (85) 93 . Laboratory Tests Test 04/12/17 14:18 04/12/17 20:01 04/13/17 07:37 White Blood Count 16.9 TH/MM3 18.6 TH/MM3 19.4 TH/MM3 Red Blood Count 2.91 MIL/MM3 2.95 MIL/MM3 2.87 MIL/MM3 Hemoglobin 7.9 GM/DL 8.0 GM/DL 8.1 GM/DL Hematocrit 25.9 % 25.8 % 25.2 % Mean Corpuscular Volume 88.9 FL 87.5 FL 87.8 FL Mean Corpuscular Hemoglobin 27.1 PG 27.1 PG 28.2 PG Mean Corpuscular Hemoglobin Concent 30.5 % 31.0 % 32.2 % Red Cell Distribution Width 17.2 % 16.3 % 16.7 % Platelet Count 373 TH/MM3 359 TH/MM3 344 TH/MM3 Mean Platelet Volume 7.9 FL 7.9 FL 8.4 FL Neutrophils (%) (Auto) 79.8 % 83.0 % Lymphocytes (%) (Auto) 6.3 % 4.9 % Monocytes (%) (Auto) 8.6 % 7.6 % Eosinophils (%) (Auto) 4.3 % 3.8 % Basophils (%) (Auto) 1.0 % 0.7 % Neutrophils # (Auto) 13.5 TH/MM3 16.1 TH/MM3 Lymphocytes # (Auto) 1.1 TH/MM3 1.0 TH/MM3 Monocytes # (Auto) 1.5 TH/MM3 1.5 TH/MM3 Eosinophils # (Auto) 0.7 TH/MM3 0.7 TH/MM3 Basophils # (Auto) 0.2 TH/MM3 0.1 TH/MM3 CBC Comment AUTO DIFF AUTO DIFF Differential Total Cells Counted 100 100 Neutrophils % (Manual) 74 % 79 % Band Neutrophils % 11 % 4 % Lymphocytes % 8 % 3 % Monocytes % 1 % Eosinophils % 4 % 4 % Neutrophils # (Manual) 14.7 TH/MM3 17.8 TH/MM3 Metamyelocytes 1 % 5 % Myelocytes 1 % 4 % Differential Comment FINAL DIFF MANUAL FINAL DIFF MANUAL Dohle Bodies PRESENT Platelet Estimate NORMAL NORMAL Platelet Morphology Comment NORMAL NORMAL Basophils % 1 % Laboratory Tests Test 04/12/17 14:18 04/13/17 07:37 Blood Urea Nitrogen 82 MG/DL 79 MG/DL Creatinine 1.40 MG/DL 1.47 MG/DL Random Glucose 122 MG/DL 93 MG/DL Calcium Level 8.3 MG/DL 8.1 MG/DL Sodium Level 148 MEQ/L 145 MEQ/L Potassium Level 3.8 MEQ/L 4.0 MEQ/L Chloride Level 114 MEQ/L 112 MEQ/L Carbon Dioxide Level 25.1 MEQ/L 24.1 MEQ/L Anion Gap 9 MEQ/L 9 MEQ/L Estimat Glomerular Filtration Rate 51 ML/MIN 49 ML/MIN Phosphorus Level 2.8 MG/DL Magnesium Level 1.4 MG/DL Microbiology Date/Time Source Procedure Growth Status 04/12/17 20:12 Blood Peripheral Aerobic Blood Culture Pending Received 04/12/17 20:12 Blood Peripheral Anaerobic Blood Culture Pending Received 04/12/17 20:01 Blood Peripheral Aerobic Blood Culture Pending Received 04/12/17 20:01 Blood Peripheral Anaerobic Blood Culture Pending Received 04/12/17 23:45 Sputum Endotracheal Gram Stain - Final Resulted 04/12/17 23:45 Sputum Endotracheal Sputum Culture Pending Resulted 04/13/17 00:00 Urine Catheterized Urine Legionella Antigen - Final PRESUMPTIVE NEGATIVE FOR LEGIONELLA P... Complete Imaging Chest X-Ray 03/14/17 0000 Signed Impressions: Service Date/Time: Tuesday, March 14, 2017 13:41 - CONCLUSION: 1. Tracheostomy in good position. 2. Left lower lung infiltrates and left pleural effusion. Candido Patton MD Aortography 02/28/17 0000 Signed Impressions: Service Date/Time: Tuesday, February 28, 2017 08:01 - CONCLUSION: 1. Active hemorrhage from distal right lateral sacral and iliolumbar branches successfully coil and Gelfoam embolized, as above. Juan Bhakta MD Abdomen/Pelvis CT 02/28/17 0000 Signed Impressions: Service Date/Time: Tuesday, February 28, 2017 06:51 - CONCLUSION: 1. The right retroperitoneal hematoma has increased in size, as above. There are 2 serpiginous arterially enhancing structures visualized, one in the right psoas muscle and another extending into the hematoma at the right iliac fossa. These could represent sites of continued active bleeding. 2. Stable moderate size left and small right pleural effusion with associated compressive atelectasis. 3. Stable small volume of free fluid in the abdomen and pelvis. There is also anasarca. The findings concerning the retroperitoneal hematoma were discussed with Dr. Aguiar via telephone at approximately 7: 10 AM on 02/28/2017. Angelo Allen MD Chest CT 02/27/17 0000 Signed Impressions: Service Date/Time: Monday, February 27, 2017 18:12 - CONCLUSION: 1. Bilateral pleural effusions with bibasilar atelectasis, left greater than right. Tom Sanchez MD Abdomen X-Ray 02/26/17 0000 Signed Impressions: Service Date/Time: Sunday, February 26, 2017 14:52 - CONCLUSION: 1. Nonobstructive bowel gas pattern. Juan Bhakta MD Upper Extremity Ultrasound 02/10/17 0000 Signed Impressions: Service Date/Time: Friday, February 10, 2017 18:46 - CONCLUSION: Occlusive thrombus in the cephalic and basilic veins. Benjamin Person MD Lung Scan-V Nuclear Medicine 02/10/17 0000 Signed Impressions: Service Date/Time: Friday, February 10, 2017 22:17 - CONCLUSION: Low probability pulmonary embolism. Candido Patton MD Head CT 02/10/17 0000 Signed Impressions: Service Date/Time: Friday, February 10, 2017 23:51 - CONCLUSION: Negative noncontrast CT brain. Candido Patton MD Wrist X-Ray 02/06/17 0000 Signed Impressions: Service Date/Time: Monday, February 06, 2017 12:50 - CONCLUSION: Minimally displaced distal radius and ulnar fractures. Armando Dodd MD Lumbar Puncture Fluoroscopy 02/01/17 0000 Signed Impressions: Service Date/Time: January 09:35 - CONCLUSION: Uncomplicated fluoroscopically guided lumbar puncture. CSF was clear. Nabeel Peralta MD Head Magnetic Resonance Angiography 01/27/17 0000 Signed Impressions: Service Date/Time: Friday, January 27, 2017 10:33 - CONCLUSION: No intracranial vascular abnormality is identified. There is no aneurysm visualized. Angelo Allen MD IVC Filter Placement X-Ray 01/25/17 0000 Signed Impressions: Service Date/Time: January 10:29 - CONCLUSION: Uncomplicated inferior vena cava filter placement as above. Yung Fowler MD Thoracic Spine MRI 01/24/17 0000 Signed Impressions: Service Date/Time: Tuesday, January 24, 2017 22:29 - CONCLUSION: 1. Mild degenerative spondylosis most prominently at T11-L1 with slight effacement of the anterior thecal sac and left lateral recess. No significant neural foraminal stenosis. 2. No acute fracture. Juan Bhakta MD Renal Ultrasound 01/23/17 0000 Signed Impressions: Service Date/Time: Monday, January 23, 2017 08:53 - CONCLUSION: 1. Evidence of chronic parenchymal disease of both kidneys. No obstructive uropathy or other acute abnormality demonstrated. 2. Trace ascites, nonspecific. Angelo Garrido MD Lumbar Spine MRI 01/23/17 0000 Signed Impressions: Service Date/Time: Monday, January 23, 2017 17:01 - CONCLUSION: 1. At L4-5 is a broad-based disc protrusion with severe central canal and lateral recess stenosis and flattening of the exiting right L4 nerve root. 2. L5-S1 there is a disc protrusion and moderate stenosis with flattening of the exiting L5 nerve roots bilaterally. 3. At L3-4 there is a moderate to severe central stenosis and lateral recess stenosis with mild foraminal stenosis. 4. No acute fracture or spondylolisthesis. Trace Holloway MD Lower Extremity Ultrasound 01/23/17 0000 Signed Impressions: Service Date/Time: Monday, January 23, 2017 09:53 - CONCLUSION: Bilateral focal lower extremity DVT involving the posterior tibial veins. Angelo Garrido MD Cervical Spine MRI 01/23/17 0000 Signed Impressions: Service Date/Time: Monday, January 23, 2017 17:01 - CONCLUSION: 1. Multilevel cervical spine degenerative changes as above. 2. Mild degrees of spinal stenosis at C3/C4-C6/C7. No cord compression or cord signal abnormality. 3. Age indeterminate left paracentral/foraminal disc protrusion at C6/C7. 4. Multilevel foraminal stenosis, most severe on the left at C6/C7. Please see individual levels above. 5. No fracture or subluxation of the cervical spine. Angelo Garrido MD Brain MRI 01/23/17 0000 Signed Impressions: Service Date/Time: Monday, January 23, 2017 17:01 - CONCLUSION: 1. No acute stroke or other acute intracranial abnormality demonstrated. 2. Moderate severity chronic white matter changes, nonspecific but most likely related to chronic small vessel disease. 3. Few scattered tiny lacunar infarcts of the brainstem. 4. Given the findings are not entirely specific, clinical evaluation for possible multiple sclerosis recommended. Angelo Garrido MD Knee X-Ray 01/22/[id number] Signed Impressions: Service Date/Time: Sunday, January 22, 2017 21:17 - CONCLUSION: 1. Evidence of moderate to large joint effusion. 2. No acute fracture or malalignment. 3. Mild 3 compartment osteoarthritic change. Benjamin Person MD Hip and Pelvis X-Ray [id number]/22/[id number] Signed Impressions: Service Date/Time: Sunday, January 22, 2017 21:10 - CONCLUSION: 1. Mild to moderate degenerative change of both hips with no acute fracture or malalignment. There is flattening and remodeling of the right humeral head. Benjamin Person MD Physical Exam GENERAL: More alert. Does not appear to be in distress. SKIN: Cool and dry. No generalized rash. EYES: [place]cl[place] conjunctiva. No petechia or hemorrhage. EARS, NOSE AND THROAT: Nose without bleeding or purulent nasal discharge. Dry oral mucosa NECK: Trach site ok. CARDIOVASCULAR: Regular rate and rhythm. Soft heart sounds. No murmurs RESPIRATORY: Coarse BS bilaterally, decreased at bases. ABDOMEN: Soft, mildly distended, PEG site ok. Mild tenderness, no guarding EXTREMITIES: No clubbing, cyanosis. Edema feet better; edema hands better NEUROLOGICAL: awake and following commands PSYCHIATRIC: Calm and cooperative LINE: Lines with no evidence of infection Assessment & Plan Remarks IMPRESSION New Sepsis (fever and leucocytosis) Aspiration Pneumonia in health care setting. Mucus plugs with atelectasis. Worsening leucocytosis. ESBL in urine in recent past. 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 Large R retroperitoneal bleed, S/P multiple transfusions and S/P coiling of bleeders Anemia, due to bleed, retroperitoneal MSSA sepsis, due to suppurative thrombophlebitis LUE, S/P I and D and excision of portion of cephalic vein - S/P Rx Respiratory failure, has had several intubations - reintubated again 02/28, extubated 03/11 - reintubated again - S/P trach 03/14 Recent Rx 7 days high dose solumedrol for transverse myelitis Wu LE DVT has IVC filter placed 01/25 - ?hypercoagulable state Chronic kidney disease, worsening creatinine - shock and compression of ureter by hematoma Known DM, HTN RECOMMENDATION Continue Zerbaxa IV (New HCAP in patient with MDR PSAE and ESBL history) Change to oral Flagyl (pending resp issues being addressed will reevaluate in am ) Continue Zyvox IV (suspect HCAP, cr elevated would like to avoid nephrotoxins) Start Bactrim for possible Steno malto given prior history and persistent sepsis. Follow sputum culture. d.w Micro to check for Susceptibility for Zerbaxa, Avycaz and Colistin if he regrows MDR PSAE. Gram stain with GNR. Recommend Bronchoscopy for mucus plugs. Recommend thoracentesis. Follow cultures Follow clinically. 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 Critical thinking and decision making. Time in excess of 40 mins. d/w Dr.Young [place] covering this weekend. to resume care on Sunday04/16/17 Andressa Puente MD Apr 13, 2017 11:07
[2017-04-13] MEDS ORDERED: LEVOFLOXACIN 750 MG PREMIX INJ 150 ML IV SCH (11:15)
--- NOTE | 2017-04-13 13:25 | HHI.PR ---
Subjective Remarks the patioent on vent now still ill Objective - Vital Signs Date Time Temp Pulse Resp B/P (MAP) Pulse Ox O2 Delivery O2 Flow Rate FiO2 04/13/17 12:45 94 35 04/13/17 12:00 85 04/13/17 12:00 98.8 22 114/67 (83) 04/12/17 10:00 Trach Collar 6.00 T-Piece Result Diagram: 04/13/17 0737 04/13/17 0737 Objective Remarks Objective Remarks GA: nad, on vent trach in place, no purulant secretions around trach lungs: dec bs bilateral more on left Heart: s1, S2 Abd: soft Neuro : no chnage Ext: no edema, no cyanosis Medications and IVs Vital Signs Date Time Temp Pulse Resp B/P (MAP) Pulse Ox O2 Delivery O2 Flow Rate FiO2 04/13/17 12:45 94 35 04/13/17 12:00 85 04/13/17 12:00 98.8 85 22 114/67 (83) 96 04/13/17 10:00 86 04/13/17 09:14 93 35 04/13/17 08:00 85 04/13/17 08:00 99.8 85 21 114/68 (83) 04/13/17 06:00 83 04/13/17 04:20 97 35 04/13/17 04:00 99.8 88 20 109/66 (80) 97 04/13/17 04:00 88 04/13/17 02:00 85 04/13/17 01:17 97 35 04/13/17 00:00 100.2 88 21 118/64 (82) 98 04/13/17 00:00 88 04/12/17 22:18 98 35 04/12/17 22:00 91 04/12/17 20:00 101.2 93 23 124/64 (84) 97 04/12/17 20:00 93 04/12/17 19:25 97 35 04/12/17 18:00 100 100 04/12/17 17:24 100 45 04/12/17 16:33 99.3 92 18 130/68 (88) 93 A/P Assessment and Plan Assessment and Plan 1: Resp failure 2. ? PNA 3. Severe Deconditioning 4. Large Pleural effusion I agree with thora F/U after thora likely will need a bronch broad spectrum abx D/w Dr Hernandez in details.. Rishabh Estrada MD Apr 13, 2017 13:25
[2017-04-13] MEDS ORDERED: LIDOCAINE 1%/EPINEPHrine 1:100,000 SOLN 20 ML VIAL ONE (14:50)
[2017-04-13] MEDS ORDERED: MIDAZOLAM HCL 2 MG/2 ML VIAL ONE (15:20)
--- NOTE | 2017-04-13 16:07 | PD.RAD ---
Post CT Procedure Prog Note Pre Procedure Diagnosis: (1) Recurrent pleural effusion on right Post Procedure Diagnosis: (1) Recurrent pleural effusion on right Procedure Date: Apr 13, 2017 Supervising Radiologist: Candido Mendoza JR Anesthesia: Other Plan of Activity Patient to Unit: Critical Care Patient Condition: Fair See PACS Report for procedural detail/treatment Drainage Procedure Procedure 1 Imaging Guidance: CT Side: Right Procedure Type: Thoracentesis Fluid Removal (CCs): 600 Fluid Description: Red Findings: CT guided right thoracentesis. 600ml of reddish fluid obtained and sent to lab as requested. Jr. Reji,Candido Oreilly MD Apr 13, 2017 16:07
--- NOTE | 2017-04-13 16:10 | HHI.HCPN ---
Reason for visit a. To assist with evaluation and management of symptoms including: shortness of breath, pain, debility b. To assist medical decision maker(s) with: better understanding of current medical conditions; weighing benefits/burdens of medical treatment options; making medical treatment decisions. Subjective/Interval History Patient was transferred yesterday as a [place] due to tachypnea on T burch, and a low grade temp. Chest X-Ray on 04/12/17 revealed new hazy opacity involving most of the left hemithorax suggesting large pleural effusion on developing infiltrates. Chest CT revealed slight increase in the size of bilateral effusions and bibasilar atelectasis left greater than right. Critical care management Dr. Hernandez consulted. Patient was placed on mechanical ventilation via tracheostomy. Patient seen in [facility] in bed at 1210 hours. Chest x-ray today revealed progressive moderate left pleural effusion with worsening associated airspace disease, compressive atelectasis and left lower lobe consolidation which may reflect pneumonia/aspiration. Patient remains trached and is currently on mechanical ventilation. Patient has a low grade Temp with a Tmax of 100.2 degrees F. SBP low 100s -120s. PEG currently clamped - patient scheduled for a CT guided thoracentesis and bronchoscopy. Nephrology following. Case discussed with Dr. Puente, Dr. Hernandez and bedside RN Susan. Telephone call to Davie Kerr, patient`s son with no response. Telephone conversation with patient`s son Arnel Kerr via telephone- called home telephone. Updated him on patient`s medical status. Discussed his role as patient`s health care proxy and he states that since Davie lives here closer to patient he is alright with Davie making medical decisions for their father and that he trusts that Davie will make the right decisions. When asked if he wanted to opt out of medical decision making, he stated that he may have to do that and allow Davie to make medical decisions and hopes that Davie will keep him informed. Explained to Arnel that his father is critically ill. Discussed code status, and explained to him that Davie wanted patient to be a full code. Again, Arnel stated that he trusts whatever decision his brother has and is making for their father. Telephone conversation with Deb patient` s sister, Updated her on patient`s current medical status and planned procedures. Family/friend interactions Telephone call to Davie Kerr, patient`s son with no response. Telephone conversation with patient`s son Arnel Kerr via telephone- called home telephone. Updated him on patient`s medical status. Discussed his role as patient`s health care proxy and he states that since Davie lives here closer to patient he is alright with Davie making medical decisions for their father and that he trusts that Davie will make the right decisions. When asked if he wanted to opt out of medical decision making, he stated that he may have to do that and allow Davie to make medical decisions and hopes that Davie will keep him informed. Explained to Arnel that his father is critically ill. Discussed code status, and explained to him that Davie wanted patient to be a full code. Again, Arnel stated that he trusts whatever decision his brother has and is making for their father. Telephone conversation with Deb patient` s sister, Updated her on patient`s current medical status and planned procedures. . Advance Directives Living Will: Never completed Health Care Surrogate: Never completed Durable Power of Glass Block Bender: Never completed Advance Directive Specifics Health Care Surrogate(s): Healthcare proxys- Son-Davie Kerr - ; Son-Arnel Kerr- -cell -home Telephone call to Davie Kerr, patient`s son with no response. Telephone conversation with patient`s son Arnel Kerr via telephone- called home telephone. Updated him on patient`s medical status. Discussed his role as patient`s health care proxy and he states that since Davie lives here closer to patient he is alright with Davie making medical decisions for their father and that he trusts that Davie will make the right decisions. When asked if he wanted to opt out of medical decision making, he stated that he may have to do that and allow Davie to make medical decisions and hopes that Davie will keep him informed. Explained to Arnel that his father is critically ill. Discussed code status, and explained to him that Davie wanted patient to be a full code. Again, Arnel stated that he trusts whatever decision his brother has and is making for their father. Telephone conversation with Deb patient` s sister, Updated her on patient`s current medical status and planned procedures. . Documented care wishes: No known documented care wishes have been completed. . Objective Vital Signs Date Time Temp Pulse Resp B/P (MAP) Pulse Ox O2 Delivery O2 Flow Rate FiO2 04/13/17 14:00 85 04/13/17 12:45 94 35 04/13/17 12:00 85 04/13/17 12:00 98.8 85 22 114/67 (83) 96 04/13/17 10:00 86 04/13/17 09:14 93 35 04/13/17 08:00 85 04/13/17 08:00 99.8 85 21 114/68 (83) 04/13/17 06:00 83 04/13/17 04:20 97 35 04/13/17 04:00 99.8 88 20 109/66 (80) 97 04/13/17 04:00 88 04/13/17 02:00 85 04/13/17 01:17 97 35 04/13/17 00:00 100.2 88 21 118/64 (82) 98 04/13/17 00:00 88 04/12/17 22:18 98 35 04/12/17 22:00 91 04/12/17 20:00 101.2 93 23 124/64 (84) 97 04/12/17 20:00 93 04/12/17 19:25 97 35 04/12/17 18:00 100 100 04/12/17 17:24 100 45 04/12/17 16:33 99.3 92 18 130/68 (88) 93 Intake & Output 04/13/17 04/13/17 07:00 19:00 Intake Total 700 ml 200 ml Output Total 1925 ml 800 ml Balance -1225 ml -600 ml IV Total 700 ml 200 ml Output Urine Total 1925 ml 800 ml Physical Exam CONSTITUTIONAL/GENERAL: This is an ill-looking patient, in no acute distress or discomfort, awake and yelling for someone. TUBES/LINES/DRAINS: PEG tube, #6Tracheostomy-capped on room air, PIVs, FC SKIN: No jaundice. Ecchymoses on upper extremities. Sacral pressure wound and L heel pressure injury per EMR. Wound to anterior neck - tracheostomy insertion area with a foam dressing. Not diaphoretic. HEAD: Atraumatic. Normocephalic. EYES: Pupils equal and round, slight reaction.No scleral icterus. No injection or drainage. Fundi not examined. ENT: Trached. Nose without bleeding or purulent drainage. Moist oral mucosa. NECK: Trachea midline. #6 Tracheostomy midline- currently capped. - tracheostomy insertion area with a foam dressing. CARDIOVASCULAR: Regular rate and rhythm without murmurs, gallops, or rubs. No JVD. RESPIRATORY/CHEST: Symmetrical, rhonchi and wheezy to auscultation. Small amount of yellowish colored secretions around trach . Breath sounds equal bilaterally. Patient is currently capped on room air. O2 sats high 90s. GASTROINTESTINAL: Abdomen soft, non-tender, nondistended. No guarding. Bowel sounds present. Nepro-Goal infusing at 55ml/hr- Tolerating. Liquid stool GENITOURINARY: Without palpable bladder distension. Sloan catheter in with clear urine. MUSCULOSKELETAL: Gout tophi to fingers, knees, elbows and both ankles. No edema to all 4 extremities NEUROLOGICAL: Trached. Patient sleepy but easily arousable and verbal. Followed command with all 4 extremities. PSYCHIATRIC: No obvious anxiety/depression. no apparent hallucinations or other psychotic thought process. . Diagnostic Tests Laboratory Laboratory Tests Test 04/11/17 07:00 04/12/17 13:32 04/12/17 14:18 04/12/17 18:38 White Blood Count 15.0 TH/MM3 (4.0-11.0) 16.9 TH/MM3 (4.0-11.0) Red Blood Count 3.08 MIL/MM3 (4.50-5.90) 2.91 MIL/MM3 (4.50-5.90) Hemoglobin 8.7 GM/DL (13.0-17.0) 7.9 GM/DL (13.0-17.0) Hematocrit 26.9 % (39.0-51.0) 25.9 % (39.0-51.0) Mean Corpuscular Volume 87.4 FL (80.0-100.0) 88.9 FL (80.0-100.0) Mean Corpuscular Hemoglobin 28.3 PG (27.0-34.0) 27.1 PG (27.0-34.0) Mean Corpuscular Hemoglobin Concent 32.4 % (32.0-36.0) 30.5 % (32.0-36.0) Red Cell Distribution Width 16.6 % (11.6-17.2) 17.2 % (11.6-17.2) Platelet Count 343 TH/MM3 (150-450) 373 TH/MM3 (150-450) Mean Platelet Volume 8.5 FL (7.0-11.0) 7.9 FL (7.0-11.0) Blood Urea Nitrogen 97 MG/DL (7-18) 82 MG/DL (7-18) Creatinine 1.48 MG/DL (0.60-1.30) 1.40 MG/DL (0.60-1.30) Random Glucose 75 MG/DL (74-106) 122 MG/DL (74-106) Total Protein 5.6 GM/DL (6.4-8.2) Albumin 2.2 GM/DL (3.4-5.0) Calcium Level 8.1 MG/DL (8.5-10.1) 8.3 MG/DL (8.5-10.1) Alkaline Phosphatase 116 U/L (45-117) Aspartate Amino Transf (AST/SGOT) 37 U/L (15-37) Alanine Aminotransferase (ALT/SGPT) 18 U/L (12-78) Total Bilirubin 0.5 MG/DL (0.2-1.0) Sodium Level 145 MEQ/L (136-145) 148 MEQ/L (136-145) Potassium Level 3.8 MEQ/L (3.5-5.1) 3.8 MEQ/L (3.5-5.1) Chloride Level 111 MEQ/L (98-107) 114 MEQ/L (98-107) Carbon Dioxide Level 24.7 MEQ/L (21.0-32.0) 25.1 MEQ/L (21.0-32.0) Anion Gap 9 MEQ/L (5-15) 9 MEQ/L (5-15) Estimat Glomerular Filtration Rate 48 ML/MIN (>89) 51 ML/MIN (>89) Blood Gas Puncture Site RT RADIAL Blood Gas Patient Temperature 98.6 Blood Gas HCO3 24 mmol/L (22-26) Blood Gas Base Excess 0.4 mmol/L (-2-2) Blood Gas Oxygen Saturation 89 % (90-100) Arterial Blood pH 7.45 (7.380-7.420) Arterial Blood Partial Pressure CO2 35 mmHg (38-42) Arterial Blood Partial Pressure O2 60 mmHg (61-120) Arterial Blood Oxygen Content 11.8 Vol % (12.0-20.0) Arterial Blood Carboxyhemoglobin 2.4 % (0-4) Arterial Blood Methemoglobin 1.0 % (0-2) Blood Gas Hemoglobin 9.4 G/DL (12.0-16.0) Oxygen Delivery Device T-PIECE Blood Gas Liter Flow 6 L/M Blood Gas Inspired Oxygen 40 % Neutrophils (%) (Auto) 79.8 % (16.0-70.0) Lymphocytes (%) (Auto) 6.3 % (9.0-44.0) Monocytes (%) (Auto) 8.6 % (0.0-8.0) Eosinophils (%) (Auto) 4.3 % (0.0-4.0) Basophils (%) (Auto) 1.0 % (0.0-2.0) Neutrophils # (Auto) 13.5 TH/MM3 (1.8-7.7) Lymphocytes # (Auto) 1.1 TH/MM3 (1.0-4.8) Monocytes # (Auto) 1.5 TH/MM3 (0-0.9) Eosinophils # (Auto) 0.7 TH/MM3 (0-0.4) Basophils # (Auto) 0.2 TH/MM3 (0-0.2) CBC Comment AUTO DIFF Differential Total Cells Counted 100 Neutrophils % (Manual) 74 % (16-70) Band Neutrophils % 11 % (0-6) Lymphocytes % 8 % (9-44) Monocytes % 1 % (0-8) Eosinophils % 4 % (0-4) Neutrophils # (Manual) 14.7 TH/MM3 (1.8-7.7) Metamyelocytes 1 % (0-1) Myelocytes 1 % (0-0) Differential Comment FINAL DIFF MANUAL Dohle Bodies PRESENT (NONE SEEN) Platelet Estimate NORMAL (NORMAL) Platelet Morphology Comment NORMAL (NORMAL) Nasal Screen MRSA (PCR) MRSA NOT DETECTED (NOT Test 04/12/17 20:01 04/13/17 04:23 04/13/17 07:37 White Blood Count 18.6 TH/MM3 (4.0-11.0) 19.4 TH/MM3 (4.0-11.0) Red Blood Count 2.95 MIL/MM3 (4.50-5.90) 2.87 MIL/MM3 (4.50-5.90) Hemoglobin 8.0 GM/DL (13.0-17.0) 8.1 GM/DL (13.0-17.0) Hematocrit 25.8 % (39.0-51.0) 25.2 % (39.0-51.0) Mean Corpuscular Volume 87.5 FL (80.0-100.0) 87.8 FL (80.0-100.0) Mean Corpuscular Hemoglobin 27.1 PG (27.0-34.0) 28.2 PG (27.0-34.0) Mean Corpuscular Hemoglobin Concent 31.0 % (32.0-36.0) 32.2 % (32.0-36.0) Red Cell Distribution Width 16.3 % (11.6-17.2) 16.7 % (11.6-17.2) Platelet Count 359 TH/MM3 (150-450) 344 TH/MM3 (150-450) Mean Platelet Volume 7.9 FL (7.0-11.0) 8.4 FL (7.0-11.0) Prothrombin Time 12.3 SEC (9.8-11.6) Prothromb Time International Ratio 1.1 RATIO Blood Gas Puncture Site RT RADIAL Blood Gas Patient Temperature 98.6 Blood Gas HCO3 24 mmol/L (22-26) Blood Gas Base Excess 0.2 mmol/L (-2-2) Blood Gas Oxygen Saturation 94 % (90-100) Arterial Blood pH 7.45 (7.380-7.420) Arterial Blood Partial Pressure CO2 35 mmHg (38-42) Arterial Blood Partial Pressure O2 85 mmHg (61-120) Arterial Blood Oxygen Content 10.5 Vol % (12.0-20.0) Arterial Blood Carboxyhemoglobin 2.1 % (0-4) Arterial Blood Methemoglobin 1.3 % (0-2) Blood Gas Hemoglobin 7.9 G/DL (12.0-16.0) Oxygen Delivery Device VENTILATOR Blood Gas Ventilator Setting AC12/500/+5/ Blood Gas Inspired Oxygen 35 % Neutrophils (%) (Auto) 83.0 % (16.0-70.0) Lymphocytes (%) (Auto) 4.9 % (9.0-44.0) Monocytes (%) (Auto) 7.6 % (0.0-8.0) Eosinophils (%) (Auto) 3.8 % (0.0-4.0) Basophils (%) (Auto) 0.7 % (0.0-2.0) Neutrophils # (Auto) 16.1 TH/MM3 (1.8-7.7) Lymphocytes # (Auto) 1.0 TH/MM3 (1.0-4.8) Monocytes # (Auto) 1.5 TH/MM3 (0-0.9) Eosinophils # (Auto) 0.7 TH/MM3 (0-0.4) Basophils # (Auto) 0.1 TH/MM3 (0-0.2) CBC Comment AUTO DIFF Differential Total Cells Counted 100 Neutrophils % (Manual) 79 % (16-70) Band Neutrophils % 4 % (0-6) Lymphocytes % 3 % (9-44) Eosinophils % 4 % (0-4) Basophils % 1 % (0-2) Neutrophils # (Manual) 17.8 TH/MM3 (1.8-7.7) Metamyelocytes 5 % (0-1) Myelocytes 4 % (0-0) Differential Comment FINAL DIFF MANUAL Platelet Estimate NORMAL (NORMAL) Platelet Morphology Comment NORMAL (NORMAL) Blood Urea Nitrogen 79 MG/DL (7-18) Creatinine 1.47 MG/DL (0.60-1.30) Random Glucose 93 MG/DL (74-106) Calcium Level 8.1 MG/DL (8.5-10.1) Phosphorus Level 2.8 MG/DL (2.5-4.9) Magnesium Level 1.4 MG/DL (1.5-2.5) Sodium Level 145 MEQ/L (136-145) Potassium Level 4.0 MEQ/L (3.5-5.1) Chloride Level 112 MEQ/L (98-107) Carbon Dioxide Level 24.1 MEQ/L (21.0-32.0) Anion Gap 9 MEQ/L (5-15) Estimat Glomerular Filtration Rate 49 ML/MIN (>89) Result Diagram: 04/13/17 0737 04/13/17 0737 Microbiology Microbiology Date/Time Source Procedure Growth Status 04/12/17 20:12 Blood Peripheral Aerobic Blood Culture - Preliminary NO GROWTH IN 1 DAY Resulted 04/12/17 20:12 Blood Peripheral Anaerobic Blood Culture - Preliminary NO GROWTH IN 1 DAY Resulted 04/12/17 20:01 Blood Peripheral Aerobic Blood Culture - Preliminary NO GROWTH IN 1 DAY Resulted 04/12/17 20:01 Blood Peripheral Anaerobic Blood Culture - Preliminary NO GROWTH IN 1 DAY Resulted 04/12/17 23:45 Sputum Endotracheal Gram Stain - Final Resulted 04/12/17 23:45 Sputum Endotracheal Sputum Culture Pending Resulted 04/13/17 00:00 Urine Catheterized Urine Legionella Antigen - Final PRESUMPTIVE NEGATIVE FOR LEGIONELLA P... Complete Procedures 01/25/2017- Retrievable IVC Filter placement 01/26/17-lumbar puncture with fluoroscopy-by interventional radiology 02/01/17- lumbar puncture fluoroscopy by interventional radiology 02/10/17- Endotracheal Intubation 02/10/17-left IJ central venous line placed 02/10/17-left femoral arterial line placed 02/11/17-Diagnostic and therapeutic bronchoscopy with bronchoalveolar lavage 02/11/17-Left upper extremity incision and debridement with excision of septic cephalic vein 02/13/17- Extubated 02/20/17- endotracheal intubation 02/20/17- Left subclavian central line placement 02/20/17-Right radial A-line placement 02/22/17-EGD/colonoscopy 02/28/17-right radial a line 02/28/17- Endotracheal intubation 02/28/17- right sided introducer catheter placement 02/28/17- Right IJ central line placement 02/28/17-Right chest tube placement 02/28/17- Embolization of inferior and superior sacral branches of right internal iliac artery 03/01/17- Hemodialysis access catheter 03/03/17-Right IJ central line placement 03/11/17-Extubated 03/13/17- Endotracheal intubation 03/14/17-Tracheostomy placement 03/15/17-PEG tube placement . Assessment and Plan Disease Oriented Problem List: (1) Acute respiratory failure (2) Septic shock (3) Aspiration pneumonia (4) Acute renal failure (5) CKD (chronic kidney disease) stage 3, GFR 30-59 ml/min (6) Cardiomyopathy (7) DVT of lower extremity, bilateral (8) Thrombophlebitis arm (9) Diabetes mellitus (10) Gout (11) HTN (hypertension) (12) Hyperlipidemia Symptom Scale: (1) Shortness of breath 0-10 Scale: Unable to quantify Comment: Trach downsized to #6. Patient back on ventilator. . (2) Debility 0-10 Scale: Unable to quantify Comment: Progressive. . (3) Pain 0-10 Scale: Unable to quantify Comment: History of falls, gout, arthritis, and currently bedbound. . Pertinent Non-Medical Issues Psychosocial:Patient was born and raised in [place], [place]. Patient was once for 20 years, now and has 2 adult sons. 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 He recently resigned due to failing health. Spiritual: No latter day affiliation Legal: Per [place] statutes, in the absence of written advanced directives healthcare proxy decision making falls to the patient's 2 adult children. Patient's son (Davie) lives locally and wishes to participate in the role of the healthcare proxy decision maker. Palliative care has attempted to contact Arnel, has not call back. Patient`s sister Deb and patients brother verbalized that they have been updating Arnel on patient`s medical status. Ethical issues impacting care: No known ethical issues impacting care at this time. . Important Contacts Son-Davie Kerr - Son-Arnel Kerr- -cell -home Sister-Deb Patricio . Prognosis Mr Kerr is a 62 years old male with a past medical history of hypertension, asthma, diabetes, hyperlipidemia, chronic kidney disease and gout. Patient presented to the ED on 01/22/17 complaining of bilateral knee and right arm pain after a mechanical fall 4 or 5 days prior to coming to the ER. Clinical course complicated with increased weakness leading to numerous diagnostic work ups for possible transverse myelitis, DVTs, retroperitoneal hematoma, aspiration pneumonia, intubation x 4 times, septic and hemorrhagic shock requiring support with pressors and multiple pRBC, FFP transfusions as well as platelets and cryo , renal failure requiring hemodialysis and sacral wound Given ongoing comorbidities, and prolonged hospitalization, patient remains at risk for further complications, deterioration and decline. Code Status: Full Code Plan PLAN: Legal decision maker: Patient is currently trached on TPierce and is not able to make any medical decisions for himself at this time. Patient has 2 adult sons Davie Kerr and Arnel Kerr. According to [place] Statute, his two aforementioned sons will serve as his health care proxys. Patient`s son Davie is acting in the role of HCP decision maker independently at this time given that he is the one who is reasonably available for consultation. 04/13/17 Telephone call to Davie Kerr, patient`s son with no response. Telephone conversation with patient`s son Arnel Kerr via telephone- called home telephone. Updated him on patient`s medical status. Discussed his role as patient`s health care proxy and he states that since Davie lives here closer to patient he is alright with Davie making medical decisions for their father and that he trusts that Davie will make the right decisions. When asked if he wanted to opt out of medical decision making, he stated that he may have to do that and allow Davie to make medical decisions and hopes that Davie will keep him informed. Explained to Arnel that his father is critically ill. Discussed code status, and explained to him that Davie wanted patient to be a full code. Again, Arnel stated that he trusts whatever decision his brother has and is making for their father. Goals: 04/13/17- Remain Aggressive. Patient On room air saturating in the high 90s. SSI pending-Case management following case. CODE STATUS: Full Code SYMPTOMS: * Shortness of breath: Multifactorial. Patient has had aspiration pneumonia. Patient has been intubated 4 times this hospitalization. Patient has a tracheostomy. On duonebs. Patient is also on Hydrocortisone 50mg q 6 hours. Oyster Preparer following. Trach downsized to a 6. Patient transferred to ICU- now on a mechanical ventilator- planned CT guided thoracentesis and bronchoscopy. * Pain: Patient presented initially complaining of pain to right wrist and bilateral knees after a mechanical fall. Patient has a history of gout, arthritis, multiple falls and is currently bedbound. Patient on Oxycodone 5mg q 4 hours ATC. Patient also on Hydrocortisone. No signs of pain. * Debility: Progressive. Patient has had decline in his health for the past 4 months, including progressively increased weakness and difficulty ambulating and prolonged hospitalization with multiple setbacks. Patient remains at high risk for further physical deconditioning and debility. PT and OT following with patient. PT and OT following. Patient will benefit from getting OOB to a stretcher chair . PT and OT following. Recommending Speech therapy consultation if patient tolerates Trials. Palliative care will continue to follow the patient during hospital course as condition evolves, to assist patient/decision-maker with understanding of their medical conditions, weighing benefits/burdens of treatment options, for clarification of goals of treatment. Additionally will assist with any symptoms of palliative concern. . Aftab Cartwright Apr 13, 2017 16:10
--- NOTE | 2017-04-13 16:20 | RADRPT ---
EXAM DATE/TIME: 04/13/2017 15:26 INDICATIONS : Short of breath, pleural effusion. SEDATION TIME: 30 minutes MEDICATION(S): 1.) 2 mg midazolam (Versed) IV DEVICE(S): 1.) 8 Fr catheter 2.) 18 gauge Lawrence blunt needle 3.) Burrows Total volume of 600 cc of clear, yellow fluid was removed. Fluid was sent for laboratory ordered studies. MEDICAL HISTORY : Hypertension. Diabetes mellitus type 2. SURGICAL HISTORY : None. ENCOUNTER: Initial ACUITY: 1 day PAIN SCORE: 4/10 LOCATION: Right lower chest PROCEDURE: 1. CT guided right thoracentesis. The site was prepped in sterile fashion. Full sterile technique was used, including cap, mask, steri le gloves and gown and a large sterile sheet. Hand hygiene and 2% chlorhexidine and/or betadine/alco hol prep was utilized per protocol for cutaneous antisepsis. The skin and subcutaneous tissues were infiltrated with local anesthetic solution. Using automated exposure control and adjustment of the mA and/or kV according to patient size, radiation dose was kept as low as reasonably achievable to obta in optimal diagnostic quality images. DICOM format image data is available electronically for review and comparison. With the patient supine on the CT table, loading machine operator images were obtained through the chest demonstrating t he small right sided pleural effusion. Dermatotomy was made and the prescribed catheter was advanced into the pleural fluid. The pleural fluid as above was removed from the hemithorax. Post procedura l scan show reduction in the amount of fluid without residual fluid with no evidence of pneumothorax. The patient tolerated the procedure well and there were no complications. EKG and oximetry remained s table throughout the procedure. The patient was sent to recovery in stable condition. CONCLUSION: Uncomplicated CT-guided right thoracentesis. Candido Mendoza Jr., MD on April 13, 2017 at 16:17 Board Certified Radiologist. This report was verified electronically.
[2017-04-13] MEDS: SULFAMETHOXAZOLE-TRIMETHOPRIM DS 800-160 MG TAB PO SCH ×2 (16:52→21:19)
[2017-04-13] MEDS: QUEtiapine FUMARATE 25 MG TAB PO SCH (16:52)
[2017-04-13] MEDS: metroNIDAZOLE 500 MG TAB PO SCH ×2 (16:53→21:19)
[2017-04-13 18:03] LABS: TOTAL PROTEIN,PLEURAL FLUID 2.2 GM/DL
[2017-04-13 19:17] LABS: PLEURAL FLUID LYMPHS 52 %
[2017-04-13] MEDS: ATORVASTATIN 10 MG TAB PO SCH (21:19)
[2017-04-14] VITALS (19 sets, daily range): BP systolic 83–102; BP diastolic 52–62; PULSE 76–104; RESP 14–22; TEMP 98–99.4; O2SAT 96–100
[2017-04-14] MEDS: oxyCODONE HCL ORAL CONC 5 MG/0.25 ML SYRINGE PO SCH ×6 (01:08→20:47)
[2017-04-14] MEDS: CEFTOLOZANE-TAZOBACTAM INJ 1,500 MG in SODIUM CHLORIDE 0.9% INJ 100 ML IV SCH ×3 (01:08→17:00)
[2017-04-14] MEDS: RESP: ALBUTEROL 2.5 MG/IPRATROPIUM 0.5 MG NEB (SCH) NEB ×4 (04:05→20:24)
--- NOTE | 2017-04-14 04:13 | RADRPT ---
EXAM DATE/TIME: 04/14/2017 02:33 [facility] COMPARISON: CHEST SINGLE AP, April 13, 2017, 8:41. INDICATIONS : Shortness of breath, respiratory failure. MEDICAL HISTORY : Hypertension. Renal calculi. Arthritis. Apnea. Dyspnea. Renal disease. SURGICAL HISTORY : Bilateral uretheral stents, tracheostomy ENCOUNTER: Subsequent ACUITY: 2 months PAIN SCORE: Non-responsive. LOCATION: Bilateral chest FINDINGS: A single AP semierect view of the chest was obtained again demonstrates tracheostomy tube in place. T here has been interval placement of a smallbore left-sided chest tube with improvement in the aeratio n in the left lung with decreased opacity. There is mild hazy residual noted greatest at the lung bas e. The heart size appears mildly prominent. The right lung remains clear. The bony thorax is intact d egenerative changes of both glenohumeral joints left greater than right. CONCLUSION: 1. Interval placement of left-sided chest tube with improvement in aeration and opacity in the left l mónica. 2. Mild hazy residual left lung greatest at the lung base. Benjamin Person MD on April 14, 2017 at 4:10 Board Certified Radiologist. This report was verified electronically.
[2017-04-14] MEDS: HYDROCORTISONE 10 MG TAB PO SCH ×2 (04:48→18:01)
[2017-04-14] MEDS: LINEZOLID 600 MG PREMIX 300 ML IV SCH ×2 (04:48→18:01)
[2017-04-14] MEDS: metroNIDAZOLE 500 MG TAB PO SCH ×3 (04:48→20:46)
[2017-04-14] MEDS: FREE WATER G-TUBE SCH ×4 (06:00→18:00)
[2017-04-14] MEDS ORDERED: SODIUM CHLORID 0.9% 500 ML INJ 500 ML IV SCH (07:15)
[2017-04-14 07:27] LABS: BICARBONATE 23.4 MEQ/L (21.0-32.0); MAGNESIUM 1.5 MG/DL (1.5-2.5); POTASSIUM 4.2 MEQ/L (3.5-5.1)
[2017-04-14] MEDS: INSULIN ASPART SUPPLEMENTAL SCALE SQ SCH ×4 (08:00→20:47)
[2017-04-14] MEDS: ATENOLOL 25 MG TAB PO SCH ×2 (08:52→20:46)
[2017-04-14] MEDS: INSULIN DETEMIR 100 UNITS/ML VIAL SQ SCH ×2 (09:00→20:47)
[2017-04-14] MEDS: FUROSEMIDE 40 MG/4 ML VIAL IV PUSH SCH ×2 (09:12→18:01)
[2017-04-14] MEDS: LACTOBACILLUS ACIDOPHILUS TAB PO SCH ×3 (09:12→18:01)
[2017-04-14] MEDS: TAMSULOSIN HCL 0.4 MG CAP PO SCH ×2 (09:12→20:46)
[2017-04-14] MEDS: CHOLESTYRAMINE 4 GM PACKET G-TUBE SCH ×2 (09:12→20:45)
[2017-04-14] MEDS: LANSOPRAZOLE SOLUTAB 30 MG TAB NG SCH ×2 (09:12→20:46)
[2017-04-14] MEDS: POTASSIUM CHLORIDE 25 MEQ EFFERVESCENT TAB PO SCH ×2 (09:12→20:47)
[2017-04-14] MEDS: SULFAMETHOXAZOLE-TRIMETHOPRIM DS 800-160 MG TAB PO SCH ×2 (09:12→20:46)
[2017-04-14] MEDS: SODIUM CHLORIDE 0.9% FLUSH 10 ML FLUSH IV FLUSH SCH ×3 (09:13→20:46)
[2017-04-14] MEDS: QUEtiapine FUMARATE 25 MG TAB PO SCH (09:13)
[2017-04-14] MEDS: COLLAGENASE OINT 30 GM TUBE TOPICAL SCH (09:15)
[2017-04-14] MEDS: CHLORHEXIDINE 0.12% (ORAL KIT) 15 ML CUP MT SCH ×2 (09:15→20:45)
[2017-04-14] MEDS: [UNRECOGNIZED DRUG - REMARK] NEB SCH ×4 (10:00→20:24)
[2017-04-14] MEDS: RESP: ALBUTEROL 2.5 MG/IPRATROPIUM 0.5 MG NEB (PRN) NEB (12:38)
[2017-04-14] MEDS: MAGNESIUM SULFATE 1 GM PREMIX 100 ML IV SCH ×2 (13:47→14:15)
--- NOTE | 2017-04-14 14:25 | HHI.PR ---
Subjective Remarks still on vent no new issues s/p thora and chest tube insertion still having sig secretions Objective Vital Signs Date Time Temp Pulse Resp B/P (MAP) Pulse Ox O2 Delivery O2 Flow Rate FiO2 p106/14/16 12:26 98 35 04/14/17 12:00 84 04/14/17 12:00 98.8 84 14 83/62 (69) 100 04/14/17 12:00 35 04/14/17 10:24 20 04/14/17 10:00 87 04/14/17 09:03 99 35 04/14/17 09:00 35 04/14/17 08:00 35 04/14/17 08:00 99.3 91 17 102/60 (74) 99 04/14/17 08:00 91 04/14/17 06:00 104 04/14/17 04:15 96 35 04/14/17 04:00 94 04/14/17 04:00 35 04/14/17 04:00 99.0 94 20 88/59 (69) 99 04/14/17 02:00 93 04/14/17 01:19 96 35 04/14/17 00:00 98.6 87 22 91/55 (67) 99 04/14/17 00:00 35 04/14/17 00:00 87 04/13/17 22:20 99 35 04/13/17 22:00 93 04/13/17 20:00 35 04/13/17 20:00 98 04/13/17 20:00 99.0 98 22 110/68 (82) 98 04/13/17 19:50 99 35 04/13/17 18:00 100 04/13/17 16:17 98 35 04/13/17 16:00 89 04/13/17 16:00 97.8 91 21 149/75 (99) 97 04/13/17 15:05 94 35 I/O 04/13/17 04/13/17 04/13/17 04/14/17 04/14/17 04/14/17 07:00 15:00 23:00 07:00 15:00 23:00 Intake Total 500 ml 200 ml 600 ml 1020 ml 600 ml Output Total 1925 ml 800 ml 2400 ml Balance -1425 ml -600 ml 600 ml -1380 ml 600 ml IV Total 500 ml 200 ml 400 ml 400 ml 600 ml Tube Irrigant 220 ml Other 200 ml 400 ml Output Urine Total 1925 ml 800 ml 1800 ml Stool Total 600 ml Result Diagram: 04/13/17 0737 04/14/17 0604 Objective Remarks GA: nad trach in place, purulant secretions around trach lungs: clear Heart: s1, S2 Abd: soft Neuro : no chnage Ext: no edema, no cyanosis Assessment and Plan Assessment and Plan 1: S/p Trach 2. s/P severe sepsis 3. Severe Deconditioning 4. Large Exudative Pleural effusion s/p drainage 5. Hypotension I will cont current tx plan F/U on cultures from Pleural fluid watch blood pressure , not on pressors yet.. agree with fluid bolus cont broad spectrum abx I will order to change the trach to number 8 if possible, this will allow me to do bronch if needed cont same vent settings cont TF GI/DVT prevention still very ill.. Rishabh Estrada MD Apr 14, 2017 14:25
[2017-04-14] MEDS ORDERED: DEXMEDETOMIDINE 200 MCG in NS 48 ML IV PRN (14:45)
--- NOTE | 2017-04-14 15:40 | HHI.IDPN ---
Note Infectious Disease Note ID COVERAGE. Infectious disease following for MDR PSAE and kleb pneumo pneumonia. Reconsulted for low grade fever, leucocytosis, worsening CXR concern for new pneumonia. Overnight events reviewed with RN. Notes reviewed Somnolent. Difficult to arouse. Sedated for trach tube exchange. RN reports that he follows commands. Afebrile. BP ok On CPAP via Trach. R. Thoracentesis yesterday. Antibiotics Zerbaxa IV Flagyl IV Zyvox IV Lines Line sites with no e.o infection Past Medical History Reviewed Allergies: Coded Allergies: levofloxacin (Verified Allergy, Severe, 01/22/17) OBJECTIVE: Vital Signs Date Time Temp Pulse Resp B/P (MAP) Pulse Ox O2 Delivery O2 Flow Rate FiO2 04/14/17 15:02 100 35 04/14/17 14:03 17 04/14/17 14:00 84 04/14/17 12:26 98 35 04/14/17 12:00 84 04/14/17 12:00 98.8 84 14 83/62 (69) 100 04/14/17 12:00 35 04/14/17 10:00 87 04/14/17 09:03 99 35 04/14/17 09:00 35 04/14/17 08:00 35 04/14/17 08:00 99.3 91 17 102/60 (74) 99 04/14/17 08:00 91 04/14/17 06:00 104 04/14/17 04:15 96 35 04/14/17 04:00 94 04/14/17 04:00 35 04/14/17 04:00 99.0 94 20 88/59 (69) 99 04/14/17 02:00 93 04/14/17 01:19 96 35 04/14/17 00:00 98.6 87 22 91/55 (67) 99 04/14/17 00:00 35 04/14/17 00:00 87 04/13/17 22:20 99 35 04/13/17 22:00 93 04/13/17 20:00 35 04/13/17 20:00 98 04/13/17 20:00 99.0 98 22 110/68 (82) 98 04/13/17 19:50 99 35 04/13/17 18:00 100 04/13/17 16:17 98 35 04/13/17 16:00 89 04/13/17 16:00 97.8 91 21 149/75 (99) 97 Laboratory Tests Test 04/12/17 20:01 04/13/17 07:37 White Blood Count 18.6 TH/MM3 19.4 TH/MM3 Red Blood Count 2.95 MIL/MM3 2.87 MIL/MM3 Hemoglobin 8.0 GM/DL 8.1 GM/DL Hematocrit 25.8 % 25.2 % Mean Corpuscular Volume 87.5 FL 87.8 FL Mean Corpuscular Hemoglobin 27.1 PG 28.2 PG Mean Corpuscular Hemoglobin Concent 31.0 % 32.2 % Red Cell Distribution Width 16.3 % 16.7 % Platelet Count 359 TH/MM3 344 TH/MM3 Mean Platelet Volume 7.9 FL 8.4 FL Neutrophils (%) (Auto) 83.0 % Lymphocytes (%) (Auto) 4.9 % Monocytes (%) (Auto) 7.6 % Eosinophils (%) (Auto) 3.8 % Basophils (%) (Auto) 0.7 % Neutrophils # (Auto) 16.1 TH/MM3 Lymphocytes # (Auto) 1.0 TH/MM3 Monocytes # (Auto) 1.5 TH/MM3 Eosinophils # (Auto) 0.7 TH/MM3 Basophils # (Auto) 0.1 TH/MM3 CBC Comment AUTO DIFF Differential Total Cells Counted 100 Neutrophils % (Manual) 79 % Band Neutrophils % 4 % Lymphocytes % 3 % Eosinophils % 4 % Basophils % 1 % Neutrophils # (Manual) 17.8 TH/MM3 Metamyelocytes 5 % Myelocytes 4 % Differential Comment FINAL DIFF MANUAL Platelet Estimate NORMAL Platelet Morphology Comment NORMAL Laboratory Tests Test 04/13/17 07:37 04/14/17 06:04 Blood Urea Nitrogen 79 MG/DL 77 MG/DL Creatinine 1.47 MG/DL 1.73 MG/DL Random Glucose 93 MG/DL 119 MG/DL Calcium Level 8.1 MG/DL 8.7 MG/DL Phosphorus Level 2.8 MG/DL 2.9 MG/DL Magnesium Level 1.4 MG/DL 1.5 MG/DL Sodium Level 145 MEQ/L 145 MEQ/L Potassium Level 4.0 MEQ/L 4.2 MEQ/L Chloride Level 112 MEQ/L 109 MEQ/L Carbon Dioxide Level 24.1 MEQ/L 23.4 MEQ/L Anion Gap 9 MEQ/L 13 MEQ/L Estimat Glomerular Filtration Rate 49 ML/MIN 40 ML/MIN Vitamin B12 Level 582 PG/ML Folate 19.6 NG/ML Microbiology Date/Time Source Procedure Growth Status 04/12/17 20:12 Blood Peripheral Aerobic Blood Culture - Preliminary NO GROWTH IN 2 DAYS Resulted 04/12/17 20:12 Blood Peripheral Anaerobic Blood Culture - Preliminary NO GROWTH IN 2 DAYS Resulted 04/12/17 20:01 Blood Peripheral Aerobic Blood Culture - Preliminary NO GROWTH IN 2 DAYS Resulted 04/12/17 20:01 Blood Peripheral Anaerobic Blood Culture - Preliminary NO GROWTH IN 2 DAYS Resulted 04/13/17 16:30 Fluid Pleural Fluid Fungal Smear - Final NO FUNGAL ELEMENTS SEEN. Resulted 04/13/17 16:30 Fluid Pleural Fluid Fungal Culture Pending Resulted 04/13/17 16:30 Fluid Pleural Fluid Acid Fast Stain Pending Received 04/13/17 16:30 Fluid Pleural Fluid Mycobacterial Culture Pending Received 04/13/17 16:30 Fluid Pleural Fluid Gram Stain - Final Resulted 04/13/17 16:30 Fluid Pleural Fluid Body Fluid Culture - Preliminary NO GROWTH IN 24 HOURS. Resulted 04/12/17 23:45 Sputum Endotracheal Gram Stain - Final Resulted 04/12/17 23:45 Sputum Culture - Preliminary Pseudomonas Species Resulted 04/13/17 00:00 Urine Catheterized Urine Legionella Antigen - Final PRESUMPTIVE NEGATIVE FOR LEGIONELLA P... Complete Imaging Chest X-Ray 04/14/17 0600 Signed Impressions: Service Date/Time: Friday, April 14, 2017 02:33 - CONCLUSION: 1. Interval placement of left-sided chest tube with improvement in aeration and opacity in the left lung. 2. Mild hazy residual left lung greatest at the lung base. Benjamin Person MD Thoracentesis 04/13/17 1054 Signed Impressions: Service Date/Time: Thursday, April 13, 2017 15:26 - CONCLUSION: Uncomplicated CT-guided right thoracentesis. Candido Mendoza Jr., MD Chest X-Ray 04/13/17 0000 Signed Impressions: Service Date/Time: Thursday, April 13, 2017 08:41 - CONCLUSION: 1. Progressive moderate left pleural effusion with worsening associated airspace disease, presumably compressive atelectasis although a component of left lower lobe consolidation may reflect pneumonia/aspiration. Juan Bhakta MD Chest CT 04/12/17 1558 Signed Impressions: Service Date/Time: March 17:51 - CONCLUSION: 1. Slight increase in size of bilateral effusions and basilar atelectasis, left greater than right compared with February 27. Tracheostomy in good position. Trace Holloway MD Chest X-Ray 04/12/17 1248 Signed Impressions: Service Date/Time: March 10:59 - CONCLUSION: New hazy opacity involving most of the left hemithorax suggesting either large pleural effusion or developing infiltrates. Stable left lower lung consolidation. Candido Patton MD Physical Exam GENERAL: No distress. SKIN: Cool and dry. No generalized rash. HEENT: No lesions, Mucosa dry. NECK: Trach site ok. CARDIOVASCULAR: Regular rate and rhythm. Soft heart sounds. No murmurs RESPIRATORY: Coarse BS bilaterally, decreased at bases. ABDOMEN: Soft, mildly distended, PEG site ok. Mild tenderness, no guarding EXTREMITIES: No clubbing, cyanosis. Edema feet better; edema hands better NEUROLOGICAL: awake and following commands PSYCHIATRIC: Calm and cooperative LINE: Lines with no evidence of infection Assessment & Plan Assessment & Plan Remarks IMPRESSION New Sepsis (fever and leucocytosis) Aspiration Pneumonia in health care setting. Mucus plugs with atelectasis. CXR improved. Worsening leucocytosis. ESBL in urine in recent past. 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 Large R retroperitoneal bleed, S/P multiple transfusions and S/P coiling of bleeders Anemia, due to bleed, retroperitoneal MSSA sepsis, due to suppurative thrombophlebitis LUE, S/P I and D and excision of portion of cephalic vein - S/P Rx Respiratory failure, has had several intubations - reintubated again 02/28, extubated 03/11 - reintubated again - S/P trach 03/14 Recent Rx 7 days high dose solumedrol for transverse myelitis Wu LE DVT has IVC filter placed 01/25 - ?hypercoagulable state Chronic kidney disease, worsening creatinine - shock and compression of ureter by hematoma Known DM, HTN RECOMMENDATION Continue Zerbaxa IV (New HCAP in patient with MDR PSAE and ESBL history) Change to oral Flagyl (pending resp issues being addressed will reevaluate in am ) Continue Zyvox IV (suspect HCAP, cr elevated would like to avoid nephrotoxins) Start Bactrim for possible Steno malto given prior history and persistent sepsis. Follow sputum culture. d.w Micro to check for Susceptibility for Zerbaxa, Avycaz and Colistin if he regrows MDR PSAE. Gram stain with GNR. Recommend Bronchoscopy for mucus plugs. Follow cultures Follow clinically. Douglas Acevedo MD Apr 14, 2017 15:40
--- NOTE | 2017-04-14 18:42 | HHI.CCPN ---
Subjective Remarks/Hospital Course Date of admission: 01/22 Date of critical care medicine consult 02/10 due to acute hypoxemic respiratory failure requiring emergent intubation 62-year-old male with a past medical history of hypertension, hyperlipidemia, diabetes mellitus, gout, uric acid kidney stones, kidney disease of unknown stage who originally presented to [facility] emergency department on 01/22 after a fall in which he sustained a right distal ulna fracture. He had been experiencing a gradual primarily lower extremity weakness as well as upper extremity weakness that was progressive. Neurology consult was obtained. MRI revealed no acute stroke. He had multifocal white matter changes. Tiny lacunar infarcts of the brainstem. Lumbar MRI report states L4-L5 disc protrusion with cetnral canal stenosis. Dr. Blackwell evaluated and states no cord compression on MRI C/T spine and recommended nonoperative management. Symptoms were felt to be consistent with transverse myelitis and he underwent Solumedrol 250 mg IV q6 hours 01/27-02/02. He also was found to have occlusive thrombus in the bilateral posterior tibial veins. Heparin was being avoided because he had traumatic lumbar puncture on 01/26 and 02/01. IVC filter was placed 01/25. He was undergoing physical therapy, reportedly making some improvements with plan to eventually discharged home with his son (max assist standing, and bed to chair per PT note). Apparently he had some vomiting the evening of 02/09 and additional vomiting on 02/10. He had a fever 102.8 on 02/09. Last recorded bowel movement was 02/03. Tonight he had acute onset of severe hypoxemia and respiratory distress. [facility] called and he was brought emergently to [facility] where his sats were 64% on 100% nonrebreather with mean arterial pressure 44. He was emergently intubated, CVL and art line placed. He is in septic shock. SUBJ: 02/11: Patient remains intubated sedated, critically ill. FiO2 reduced to 80% after increasing PEEP to 12. In severe septic shock Levophed at 16 mcg/m, vasopressin at 0.04 international units. D/W vascular surgery Dr. Enciso. He performed bedside Left upper extremity incision and debridement and excision of septic cephalic vein. 02/12: Remains intubated sedated profoundly septic, in shock on vasopressin and 7 mcg/min Levophed. FiO2 has improved to 45%, WBC count remains elevated with 20 ,000 white count significant left shift. Slight improvement in creatinine 2.9 urine output 750 ml 24 hours. 2-D echo shows LV ejection fraction 20-25%, no vegetation reported. Blood cultures 4 staph aureus. Wound culture pending 02/13: Remains critically ill but stable to improving. WBC count is down to 16, creatinine improving to 2.36. Off all pressors. Urine output also improving. 1.5L in 24 hours 02/14: Extubated 02/13. Tolerating well. WBC now down to 12.8. Creat improving 2.3 to 2. UO 3.4L. remains off all pressors. Was started on Precedex yesterday night for agitation, currently on 0.5 g per KG per hour. Chest x-ray shows left more than right air space disease 02/20/17 Re consult: 62-year-old male who was originally admitted for lower extremity weakness and found to have what was thought to be possible transverse myelitis. His hospital course his included a healthcare associated pneumonia, septic thrombophlebitis, DVT. He was most recently in the hospital floor where he had significant nausea and vomiting and diarrhea. His C. difficile test was recently negative. However, he has experienced worsening acute on chronic renal failure, hypotension, tachycardia, and severe hypoxemia. He did have a bout of vomiting earlier today, and his hospitalist attending suspects that he may have aspirated. He arrives by rapid response to the ICU with a nonrebreather in place in severe respiratory distress with SPO2 of 85%. I emergently intubate the patient, see separate procedure note for details. At this point the patient was hypotensive and tachycardic. He does have a history of an EF of 20%, however clinically he appears in florid septic shock. I placed central line and arterial line started vasopressors and gentle IV fluid resuscitation with 1 L of LR. Patient today was empirically broadened to vancomycin and Zosyn from his oxacillin which was initially treating MSSA bacteremia. He is recultured. Critical-care medicine is consulted to evaluate and manage his worsening multiorgan system failure and decompensated septic shock 02/21: Patient remains intubated sedated. Becomes anxious tachypnea on sedation lightening. Chest x-ray shows mild left lower lobe infiltrate. WBC count is slightly improved today from 23.2 t0 21. C Diff negative. UO adequate, creat slightly worsening. 1.57 today 02/22: Remains intubated sedated tolerated CPAP yesterday, plan is for EGD/ Colonscopy. WBC count back to normal. UO adequate. Creat stable 02/23: Tolerating CPAP trials following commands. Will do a spontaneous breathing trials. Status post EGD colonoscopy yesterday -Gastritis, esophagitis. Diverticulosis and multiple polyps. Urine output adequate but creatinine increasing to 1.7 with patient requiring multiple straight catheterization. We'll reinsert Sloan. 02/24: Breathing comfortably 24 hours after extubation. Protects airway well. 02/25: Excoriate bottom, will place rectal FMS. Start pureed diet. 02/26: Afebrile. Complaining of nausea and vomiting this afternoon. Increased stool output. Continue potassium replacement today. 02/27: 10 PM overnight, acutely hypotensive. Received 3 units PRBCs. Antibiotic coverage broadened to piperacillin/tazobactam, cortisol and 1 dose of vancomycin. Oxacillin drip currently on hold. Symptomatically, patient continues to vague abdominal pain/nausea vomiting which is unchanged for the past several days. Lipase elevated yesterday. Lactic acid normal. Troponin normal. Urinary retention after removal of Sloan. Straight catheter 1300. Cc 02/28: New diagnosis large retroperitoneal hematoma. Received 10 PRBC, 14 FFP, 2 platelets, 1 cryo-, 6 g calcium chloride, 2 is magnesium sulfate and 4 mg Bumex. CTA abdomen revealed possible arterial bleeds iliac, lumbar. Patient is currently on norepinephrine and epinephrine drips and possible need right nephrostomy tube placement due to large hematoma compressing ureter. Intra-abdominal bladder pressures are currently 13 03/01: Afebrile. Received 25 g albumin and 1 unit PRBCs overnight. Intra- abdominal bladder pressures currently 19. Currently on 3 micrograms per minute of norepinephrine. Aljyt-ly-easg 1 out of 4 on 4 mics grams per kilogram per minute of cisatracurium. 03/02: Slightly hypothermic overnight. Hemoglobin appears to have stabilized. Troponin bump overnight likely secondary to demand ischemia from hypotension. Hemodynamically stable off all vasopressors. 03/03: Received 1 PRBCs overnight. 3 units currently. Off all vasopressors. Likely rebleeding. Stool is dark. 03/04: Remains unstable. Ventilator dependent. 03/05: afebrile. hgb stable. 03/06: bumex drip started overnight. good uop after bumex initiated. still grossly volume overloaded. Cr downtrending. more awake with transition to propofol. still too volume overloaded to tolerate extubation. hgb stable. 03/07: Afebrile. Tolerating tube feeds at goal with Nepro. Positive BM. On low-dose fentanyl and propofol drips. Potassium currently being replaced. 03/08: Eyes will open on ventilator. Afebrile. Tolerating tube feeding. Failed PSV trial yesterday due to apnea. 03/09: Following commands. Tmax 101. Tolerating tube feeding. One hour PSV trial yesterday. Currently tolerating well so far today 1.5 hours 03/10: Low-grade temperatures. Tolerating PSV trial 10 hours yesterday. Currently at 5/5 at 35%. We'll probably attempt extubation a.m. after hemodialysis. 03/11: Extubated currently in 4 L nasal cannula. Thick secretions thick clear with cough. Currently afebrile. Tolerating diet previously. 03/12: Sleepy this morning but arouses. Following commands. Refusing diet at the present time. On 2 L nasal cannula. 03/13: Patient reintubated last night for worsening respiratory status. Currently sedated on mechanical ventilation. Became hypotensive following intubation and is on Levophed 20 mics per minute. 03/14: Sedated, orally intubated on mech vent at the time of my evaluation this AM, subsequently underwent perc trach placement. Remains on levophed for pressor support. Transfused 1 unit PRBCs today. Persisten 03/15: Trach site clean, dry. CXR with bilateral basilar infiltrates. 03/16: Pulmonary congestion persists. Clinical condition not improving. Prognosis becoming increasingly bleak. 03/17: Glucose intolerance worse. No improvement in neurological function. 03/18: Remains on mechanical ventilation via tracheostomy. Off pressors now. Neurologic status remains poor. 03/19: Drowsy, encephalopathic, arousable. On mechanical ventilation via tracheostomy. Levemir increased for hyperglycemia today. Remains off pressors 03/20: More awake, moves both upper extremities. On mechanical ventilation via tracheostomy. Daily C Pap trials ongoing. 03/21: Awake and alert. On mechanical ventilation via tracheostomy. Opens and closes eyes on command. 03/22: Awake and alert. Tolerated T PIECE for 7 hours yesterday. Dialyzed today. 03/23: Currently on T piece trial. Status post dialysis yesterday on 3 L. Awake and alert. Wants to eat. Subjective 03/24: Currently afebrile. Hemodialysis catheter discontinued yesterday from left IJ. Persistent leukocytosis noted. Potassium will be replaced. Furosemide 40 mg twice a day IV to 20 mg IV twice a day 03/25: WBC count unchanged. Patient on T piece with humidified air greater than 48 hours, tolerating it well. Reconsulted 04/12: The patient was transferred emergently from the floor/ [facility]. Patient was initially seen by applications processor Dr. Estrada, and the patient was noted to be tachypneic on T piece of 40%. ABGs were performed which showed a PaO2 of 60 on T piece of FiO2 of 40%. Chest x-ray was performed which showed loss of entire left hemidiaphragm educational/development assistant consolidation in the left lower lobe. Concern for mucus plugging versus fluid. The patient was transferred emergently to [facility] placed on a ventilator CT of the chest is pending. Upon arrival in the room the patient is alert and oriented, mouthing words, nodding head to yes and no questions O2 sat is 100% but patient is currently on mechanical ventilation. Currently in no respiratory distress. 04/13: Tmax 99.8. The patient's oxygen requirements have decreased currently FiO2 35% with a PaO2 1 blood gas of 85, O2 saturation 100%. No respiratory distress noted. Patient underwent CT of the chest yesterday noted pleural effusions left greater than right, diagnostic/and therapeutic CT thoracentesis plan for this a.m.. 04/14: Patient underwent CT-guided thoracentesis of the right side with approximately 600 cc withdrawn. Today applications processor Dr. LABOY in and up size indwelling 6.0 Shiley to a 8.0 Shiley. Minimal bleeding noted around the site. X-ray improving. Patient started on CPAP trials today, as well as tube feeds were initiated. Objective Vital Signs Date Time Temp Pulse Resp B/P (MAP) Pulse Ox O2 Delivery O2 Flow Rate FiO2 04/14/17 15:02 100 35 04/14/17 14:03 17 04/14/17 14:00 84 04/14/17 12:00 98.8 83/62 (69) 04/12/17 10:00 Trach Collar 6.00 T-Piece Intake and Output 04/14/17 04/14/17 04/15/17 08:00 16:00 00:00 Intake Total 1020 ml 800 ml 700 ml Output Total 2400 ml 1350 ml Balance -1380 ml 800 ml -650 ml Result Diagram: 04/13/17 0737 04/14/17 0604 Other Results Microbiology Date/Time Source Procedure Growth Status 04/13/17 00:00 Urine Catheterized Urine Legionella Antigen - Final PRESUMPTIVE NEGATIVE FOR LEGIONELLA P... Complete Imaging Last Impressions Chest CT 04/12/17 1558 Signed Impressions: Service Date/Time: March 17:51 - CONCLUSION: 1. Slight increase in size of bilateral effusions and basilar atelectasis, left greater than right compared with February 27. Tracheostomy in good position. rTace Holloway MD Chest X-Ray 04/12/17 1248 Signed Impressions: Service Date/Time: March 10:59 - CONCLUSION: New hazy opacity involving most of the left hemithorax suggesting either large pleural effusion or developing infiltrates. Stable left lower lung consolidation. Candido Patton MD Renal Ultrasound 04/02/17 0000 Signed Impressions: Service Date/Time: Sunday, April 02, 2017 16:59 - CONCLUSION: Limited exam with the left kidney being unable to be evaluated in the bladder not distended. There do appear to be multiple shadowing stones at the right kidney without hydronephrosis. Angelo Manzo MD Wrist X-Ray 03/27/17 0000 Signed Impressions: Service Date/Time: Monday, March 27, 2017 13:21 - CONCLUSION: 1. No acute fracture is identified. A portion of the previously documented distal ulna fracture remains visualized. 2. 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 Angelo Allen MD Aortography 02/28/17 0000 Signed Impressions: Service Date/Time: Tuesday, February 28, 2017 08:01 - CONCLUSION: 1. Active hemorrhage from distal right lateral sacral and iliolumbar branches successfully coil and Gelfoam embolized, as above. Juan Bhakta MD Abdomen/Pelvis CT 02/28/17 0000 Signed Impressions: Service Date/Time: Tuesday, February 28, 2017 06:51 - CONCLUSION: 1. The right retroperitoneal hematoma has increased in size, as above. There are 2 serpiginous arterially enhancing structures visualized, one in the right psoas muscle and another extending into the hematoma at the right iliac fossa. These could represent sites of continued active bleeding. 2. Stable moderate size left and small right pleural effusion with associated compressive atelectasis. 3. Stable small volume of free fluid in the abdomen and pelvis. There is also anasarca. The findings concerning the retroperitoneal hematoma were discussed with Dr. Aguiar via telephone at approximately 7: 10 AM on 02/28/2017. Angelo Allen MD Abdomen X-Ray 02/26/17 0000 Signed Impressions: Service Date/Time: Sunday, February 26, 2017 14:52 - CONCLUSION: 1. Nonobstructive bowel gas pattern. Juan Bhakta MD Upper Extremity Ultrasound 02/10/17 0000 Signed Impressions: Service Date/Time: Friday, February 10, 2017 18:46 - CONCLUSION: Occlusive thrombus in the cephalic and basilic veins. Benjamin Person MD Lung Scan- Nuclear Medicine 02/10/17 0000 Signed Impressions: Service Date/Time: Friday, February 10, 2017 22:17 - CONCLUSION: Low probability pulmonary embolism. Candido Patton MD Head CT 02/10/17 0000 Signed Impressions: Service Date/Time: Friday, February 10, 2017 23:51 - CONCLUSION: Negative noncontrast CT brain. Candido Patton MD Lumbar Puncture Fluoroscopy 02/01/17 0000 Signed Impressions: Service Date/Time: January 09:35 - CONCLUSION: Uncomplicated fluoroscopically guided lumbar puncture. CSF was clear. Nabeel Peralta MD Head Magnetic Resonance Angiography 01/27/17 0000 Signed Impressions: Service Date/Time: Friday, January 27, 2017 10:33 - CONCLUSION: No intracranial vascular abnormality is identified. There is no aneurysm visualized. Angelo Allen MD IVC Filter Placement X-Ray 01/25/17 0000 Signed Impressions: Service Date/Time: January 10:29 - CONCLUSION: Uncomplicated inferior vena cava filter placement as above. Yung Fowler MD Thoracic Spine MRI 01/24/17 Signed Impressions: Service Date/Time: Tuesday, January 24, 2017 22:29 - CONCLUSION: 1. Mild degenerative spondylosis most prominently at T11-L1 with slight effacement of the anterior thecal sac and left lateral recess. No significant neural foraminal stenosis. 2. No acute fracture. Juan Bhakta MD Lumbar Spine MRI 01/23/17 Signed Impressions: Service Date/Time: Monday, January 23, 2017 17:01 - CONCLUSION: 1. At L4-5 is a broad-based disc protrusion with severe central canal and lateral recess stenosis and flattening of the exiting right L4 nerve root. 2. L5-S1 there is a disc protrusion and moderate stenosis with flattening of the exiting L5 nerve roots bilaterally. 3. At L3-4 there is a moderate to severe central stenosis and lateral recess stenosis with mild foraminal stenosis. 4. No acute fracture or spondylolisthesis. Trace Holloway MD Lower Extremity Ultrasound 01/23/17 Signed Impressions: Service Date/Time: Monday, January 23, 2017 09:53 - CONCLUSION: Bilateral focal lower extremity DVT involving the posterior tibial veins. Angelo Garrido MD Cervical Spine MRI 01/23/17 Signed Impressions: Service Date/Time: Monday, January 23, 2017 17:01 - CONCLUSION: 1. Multilevel cervical spine degenerative changes as above. 2. Mild degrees of spinal stenosis at C3/C4-C6/C7. No cord compression or cord signal abnormality. 3. Age indeterminate left paracentral/foraminal disc protrusion at C6/C7. 4. Multilevel foraminal stenosis, most severe on the left at C6/C7. Please see individual levels above. 5. No fracture or subluxation of the cervical spine. Angelo Garrido MD Brain MRI 01/23/17 Signed Impressions: Service Date/Time: Monday, January 23, 2017 17:01 - CONCLUSION: 1. No acute stroke or other acute intracranial abnormality demonstrated. 2. Moderate severity chronic white matter changes, nonspecific but most likely related to chronic small vessel disease. 3. Few scattered tiny lacunar infarcts of the brainstem. 4. Given the findings are not entirely specific, clinical evaluation for possible multiple sclerosis recommended. Angelo Garrido MD Knee X-Ray 01/22/172053 Signed Impressions: Service Date/Time: Sunday, January 22, 2017 21:17 - CONCLUSION: 1. Evidence of moderate to large joint effusion. 2. No acute fracture or malalignment. 3. Mild 3 compartment osteoarthritic change. Benjamin Person MD Hip and Pelvis X-Ray 01/22/172053 Signed Impressions: Service Date/Time: Sunday, January 22, 2017 21:10 - CONCLUSION: 1. Mild to moderate degenerative change of both hips with no acute fracture or malalignment. There is flattening and remodeling of the right humeral head. Benjamin Person MD Last Impressions Chest X-Ray 03/14/17 Signed Impressions: Service Date/Time: Tuesday, March 14, 2017 13:41 - CONCLUSION: 1. Tracheostomy in good position. 2. Left lower lung infiltrates and left pleural effusion. Candido Patton MD Aortography 02/28/17 Signed Impressions: Service Date/Time: Tuesday, February 28, 2017 08:01 - CONCLUSION: 1. Active hemorrhage from distal right lateral sacral and iliolumbar branches successfully coil and Gelfoam embolized, as above. Juan Bhakta MD Abdomen/Pelvis CT 02/28/17 Signed Impressions: Service Date/Time: Tuesday, February 28, 2017 06:51 - CONCLUSION: 1. The right retroperitoneal hematoma has increased in size, as above. There are 2 serpiginous arterially enhancing structures visualized, one in the right psoas muscle and another extending into the hematoma at the right iliac fossa. These could represent sites of continued active bleeding. 2. Stable moderate size left and small right pleural effusion with associated compressive atelectasis. 3. Stable small volume of free fluid in the abdomen and pelvis. There is also anasarca. The findings concerning the retroperitoneal hematoma were discussed with Dr. Aguiar via telephone at approximately 7: 10 AM on 02/28/2017. Angelo Allen MD Chest CT 02/27/17 0000 Signed Impressions: Service Date/Time: Monday, February 27, 2017 18:12 - CONCLUSION: 1. Bilateral pleural effusions with bibasilar atelectasis, left greater than right. Tom Sanchez MD Abdomen X-Ray 02/26/17 Signed Impressions: Service Date/Time: Sunday, February 26, 2017 14:52 - CONCLUSION: 1. Nonobstructive bowel gas pattern. Juan Bhakta MD Upper Extremity Ultrasound 02/10/17 Signed Impressions: Service Date/Time: Friday, February 10, 2017 18:46 - CONCLUSION: Occlusive thrombus in the cephalic and basilic veins. Benjamin Person MD Lung Scan-V Nuclear Medicine 02/10/17 Signed Impressions: Service Date/Time: Friday, February 10, 2017 22:17 - CONCLUSION: Low probability pulmonary embolism. Candido Patton MD Head CT 02/10/17 Signed Impressions: Service Date/Time: Friday, February 10, 2017 23:51 - CONCLUSION: Negative noncontrast CT brain. Candido Patton MD Wrist X-Ray 02/06/17 Signed Impressions: Service Date/Time: Monday, February 06, 2017 12:50 - CONCLUSION: Minimally displaced distal radius and ulnar fractures. Armando Dodd MD Lumbar Puncture Fluoroscopy 02/01/17 Signed Impressions: Service Date/Time: January 09:35 - CONCLUSION: Uncomplicated fluoroscopically guided lumbar puncture. CSF was clear. Nabeel Peralta MD Head Magnetic Resonance Angiography 01/27/17 Signed Impressions: Service Date/Time: Friday, January 27, 2017 10:33 - CONCLUSION: No intracranial vascular abnormality is identified. There is no aneurysm visualized. Angelo Allen MD IVC Filter Placement X-Ray 01/25/17 Signed Impressions: Service Date/Time: January 10:29 - CONCLUSION: Uncomplicated inferior vena cava filter placement as above. Yung Fowler MD Thoracic Spine MRI 01/24/17 Signed Impressions: Service Date/Time: Tuesday, January 24, 2017 22:29 - CONCLUSION: 1. Mild degenerative spondylosis most prominently at T11-L1 with slight effacement of the anterior thecal sac and left lateral recess. No significant neural foraminal stenosis. 2. No acute fracture. Juan Bhakta MD Renal Ultrasound 01/23/17 Signed Impressions: Service Date/Time: Monday, January 23, 2017 08:53 - CONCLUSION: 1. Evidence of chronic parenchymal disease of both kidneys. No obstructive uropathy or other acute abnormality demonstrated. 2. Trace ascites, nonspecific. Angelo Garrido MD Lumbar Spine MRI 01/23/17 Signed Impressions: Service Date/Time: Monday, January 23, 2017 17:01 - CONCLUSION: 1. At L4-5 is a broad-based disc protrusion with severe central canal and lateral recess stenosis and flattening of the exiting right L4 nerve root. 2. L5-S1 there is a disc protrusion and moderate stenosis with flattening of the exiting L5 nerve roots bilaterally. 3. At L3-4 there is a moderate to severe central stenosis and lateral recess stenosis with mild foraminal stenosis. 4. No acute fracture or spondylolisthesis. Trace Holloway MD Lower Extremity Ultrasound 01/23/17 Signed Impressions: Service Date/Time: Monday, January 23, 2017 09:53 - CONCLUSION: Bilateral focal lower extremity DVT involving the posterior tibial veins. Angelo Garrido MD Cervical Spine MRI 01/23/17 Signed Impressions: Service Date/Time: Monday, January 23, 2017 17:01 - CONCLUSION: 1. Multilevel cervical spine degenerative changes as above. 2. Mild degrees of spinal stenosis at C3/C4-C6/C7. No cord compression or cord signal abnormality. 3. Age indeterminate left paracentral/foraminal disc protrusion at C6/C7. 4. Multilevel foraminal stenosis, most severe on the left at C6/C7. Please see individual levels above. 5. No fracture or subluxation of the cervical spine. Angelo Garrido MD Brain MRI 01/23/17 Signed Impressions: Service Date/Time: Monday, January 23, 2017 17:01 - CONCLUSION: 1. No acute stroke or other acute intracranial abnormality demonstrated. 2. Moderate severity chronic white matter changes, nonspecific but most likely related to chronic small vessel disease. 3. Few scattered tiny lacunar infarcts of the brainstem. 4. Given the findings are not entirely specific, clinical evaluation for possible multiple sclerosis recommended. Angelo Garrido MD Knee X-Ray 01/22/172053 Signed Impressions: Service Date/Time: Sunday, January 22, 2017 21:17 - CONCLUSION: 1. Evidence of moderate to large joint effusion. 2. No acute fracture or malalignment. 3. Mild 3 compartment osteoarthritic change. Benjamin Person MD Hip and Pelvis X-Ray 01/22/172053 Signed Impressions: Service Date/Time: Sunday, January 22, 2017 21:10 - CONCLUSION: 1. Mild to moderate degenerative change of both hips with no acute fracture or malalignment. There is flattening and remodeling of the right humeral head. Benjamin Person MD Objective Remarks BP 114/82 Pulse 82 O2sat 95% on mechanical ventilation settings 12/500/5, FIO2 .35 GENERAL: 62-year-old male, resting in bed, on mechanical ventilation via tracheostomy in no apparent distress nodding head to yes and no questions HEENT: Normocephalic. Atraumatic. Pupils equal, round, reactive. NECK: Tracheostomy in place, around trach site erythematous, yellowish drainage CHEST: On mechanical ventilation tracheostomy, air entry decreased bilaterally . Trach site reddened with noted yellowish-green drainage CARDIOVASCULAR: S1-S2 regular, no gallop or murmur ABDOMEN distended. No rigidity. Umbilical hernia is reducible. No guarding. PEG tube in place : Positive scrotal edema Sloan in situ MUSCULOSKELETAL: Pulses 2+. 1+ bilateral upper and lower extremity edema. NEUROLOGICAL: Awake and alert, has spontaneous eye opening. Opens and closes eyes on command. Moves 4 limbs weakly to stimulation. Procedures 01/25/2017- Retrievable IVC Filter placement 01/26/17-lumbar puncture with fluoroscopy-by interventional radiology 02/01/17- lumbar puncture fluoroscopy by interventional radiology 02/10/17- Endotracheal Intubation 02/10/17-left IJ central venous line placed 02/10/17-left femoral arterial line placed 02/11/17-Diagnostic and therapeutic bronchoscopy with bronchoalveolar lavage 02/11/17-Left upper extremity incision and debridement with excision of septic cephalic vein 02/13/17- Extubated 02/20/17- endotracheal intubation 02/20/17- Left subclavian central line placement 02/20/17-Right radial A-line placement 02/22/17-EGD/colonoscopy 02/28/17-right radial a line 02/28/17- Endotracheal intubation 02/28/17- right sided introducer catheter placement 02/28/17- Right IJ central line placement 02/28/17-Right chest tube placement 02/28/17- Embolization of inferior and superior sacral branches of right internal iliac artery 03/01/17- Hemodialysis access catheter 03/03/17-Right IJ central line placement 03/11/17-Extubated 03/13/17- Endotracheal intubation 03/14/17-Tracheostomy placement, trach downsized to 6.0 Michelleley 03/30/17 03/15/17-PEG tube placement 04/11/17-CT Chest 04/13/17-thoracentesis right 600 cc removed Date of Insertion: Feb 20, 2017 Date of Insertion: Mar 03, 2017 Line: Central Venous Catheter Side: Right Location: Internal, Jugular A/P Problem List: (1) Septic shock ICD Code: A41.9 - Sepsis, unspecified organism; R65.21 - Severe sepsis with septic shock Status: Acute (2) Acute respiratory failure ICD Code: J96.00 - Acute respiratory failure, unspecified whether with hypoxia or hypercapnia Status: Acute (3) Thrombophlebitis arm ICD Code: I80.8 - Phlebitis and thrombophlebitis of other sites (4) Aspiration pneumonia ICD Code: J69.0 - Pneumonitis due to inhalation of food and vomit Status: Acute (5) Atelectasis of left lung ICD Code: J98.11 - Atelectasis Status: Acute (6) Quadriparesis ICD Code: G82.50 - Quadriplegia, unspecified Status: Acute (7) DVT (deep venous thrombosis) ICD Code: I82.409 - Acute embolism and thrombosis of unspecified deep veins of unspecified lower extremity (8) Altered mental status ICD Code: R41.82 - Altered mental status, unspecified Status: Acute (9) CKD (chronic kidney disease) stage 3, GFR 30-59 ml/min ICD Code: N18.3 - Chronic kidney disease, stage 3 (moderate) Status: Chronic (10) Acute renal failure ICD Code: N17.9 - Acute kidney failure, unspecified Status: Acute (11) Diabetes mellitus ICD Code: E11.9 - Type 2 diabetes mellitus without complications Status: Chronic (12) Distal end of ulna fracture, closed ICD Code: S52.609A - Unspecified fracture of lower end of unspecified ulna, initial encounter for closed fracture Status: Acute (13) Gout ICD Code: M10.9 - Gout, unspecified Status: Chronic Assessment and Plan Assessment: NEURO/PSYCH: Acute metabolic encephalopathy- persistent Quadriparesis secondary to suspected transverse myelitis Recurrent falls Suspected transverse myelitis. Received methylprednisolone 250 mg IV every 6 hours 01/27-02/02, started back on hydrocortisone 02/21/17, initially tapering to 50 mg IV every 8 hours starting received 1 dose at 2100 prior to becoming hypotensive. weaning hydrocortisone taper and stopped 03/09. Resumed hydrocortisone 50mg IV Q6hrly on 03/14 as patient became hypotensive following intubation on 03/13 requiring levophed. Continue Hydrocortisone 50 mg IV every 6 hours LP 01/26 and 02/01. CSF culture negative 01/26, 02/01 Oligoclonal bands negative. CSF/serum IgG index is not elevated. VDRL nonreactive. Cryptococcal antigen negative. Brain MRI 01/23 no acute stroke. Few scattered lacunar infarcts of the brainstem. Moderate chronic white matter changes. MRI cervical/thoracic spine- mild spinal stenosis C3/C4 to C6/C7. No cord compression. RPR negative Neurology has been following, Dr. Crenshaw. Repeat CT brain 02/10 - negative Continue PT/OT Continue oxycodone 10 mg every 4 hours scheduled Will consider EMG and Nerve Conduction studies- physical medicine and rehabilitation consulted RESP: Acute hypoxemic respiratory failure Healthcare associated pneumonia/Aspiration Pneumonia S/P Right-sided chest tube 02/28 continue mechanical ventilation, vent bundle, PSV and T piece trials as tolerated -On T piece >48 hours. Humidified room air Albuterol/ipratropium aerosols every 6 hours with albuterol aerosols every 2 hours prn VQ scan 02/10 low probability for PE. CT chest 02/10 - left lower lobe collapse and consolidation. CT chest 02/27 revealed right greater than left pleural effusions. Extubated 02/23. Intubated 02/28. Extubated 03/11, Reintubated on 03/13. 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 Failed attempt to wean successfully due to volume overload and multiple organ failure. underwent perc tracheostomy 03/14. CT chest 04/12-slight increase and bilateral effusions left greater than right basilar atelectasis CXR 04/13-moderate pleural effusion left with consolidation of the left lung Pulmonology following Dr. Estrada -Patient has a 6.0 Shiley may also need bronchoscopy to require a larger size trach or intubation. 04/13 CT guided thoracentesis scheduled emergently as discussed with Dr. Estrada - 600cc removed (right) 04/14-tracheostomy up sized to 8.[address] applications processor [address] Estrada at bedside CV: Severe sepsis - resolved. Systolic heart failure likely chronic with ejection fraction 20-25% Hyperlipidemia History of hypertension Mild TR Sinus tachycardia Elevated troponin likely type II demand ischemia Restarted on Levophed on 03/09 for following intubation, titrated off after starting hydrocortisone. Started hydrocortisone stress dose on 03/14 (as patient has been on steroids and was just tapered off on 03/09.) Patient has on hypotensive twice when attempting to wean off stress dose hydrocortisone in the past. Currently on atenolol 25 mg twice a day. Continue amlodipine 5 mg daily As needed Nitropaste, labetalol and hydralazine for hypertension Atorvastatin 10 mg by mouth daily for dyslipidemia. Troponin 0.[address]-T changes. 2-D echocardiogram 01/11 revealed EF 20-25%. Mild TR. Pulmonary arterial pressures were normal around 20 Troponin 6.55 on 03/02. Currently on furosemide 20 mg IV twice a day per nephrology GI: Large right retroperitoneal hematoma Erosive esophagitis Adematous/hyperplastic colon polyps Severe acute protein calorie malnutrition Nausea/vomiting - resolved. Diarrhea Gastritis Diverticulosis Internal and external hemorrhoids Hiatal hernia Elevated lipase 02/27 CT chest/abdomen and pelvis - 9.4 x 7.5 renal and 16 x 12 cm right psoas muscle hematoma. Fluid around liver and spleen. Right-sided nephrolithiasis CTA abdomen 02/28 - possible blushing around iliac/lumbar vessels Discussed with IR. s/p attempted embolization CT abdomen and pelvis 02/10 atrophic left kidney. Bilateral inguinal hernias fat- containing. Nonobstructing 12 mm right kidney stone repeat CT abd/pelvis did not show evidence of obstruction. patient clinically has been having diarrhea (c. diff negative 02/19). also with nausea/vomiting of unclear etiology. EGD/Colonoscopy-02/22/17 showed gastritis esophagitis, hiatal hernia, diverticulosis and multiple polyps in descending colon and sigmoid which were snared biopsied. Biopsy pending Dr. Lewis consulted for intervention if needed for elevated IAP. will continue to check as needed Status post PEG tube placement by consulted Previously on 1800-calorie ADA diet to this readmission to ICU, consult dietary for tube feeds Lansoprazole 30 mg twice a day for GI prophylaxis FEN/RENAL: Acute kidney injury in the setting of Chronic kidney disease stage 3-4 History of uric acid kidney stones with prior stent BPH Nonfunctioning left kidney Acute intravascular volume overload Hypokalemia Sloan placed due to urinary retention and worsening creatinine Maintain Sloan secondary to urinary retention Monitor intake and output q1hr. Monitor electrolytes. RIOS/SPEP negative. 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 Recommended nephrostomy tube if obstruction Nephrology consulted, hemodialysis per nephrology. Making urine. Due to acute illness holding tamsulosin 0.4 mg by mouth daily for BPH ICU electrolyte replacement protocol Last IHD was 03/22 ID: Septic shock- resolved. Abscess and Suppurative thrombophlebitis left upper extremity MSSA bacteremia Klebsiella UTI ESBL positive Acute aspiration pneumonia/HCAP Previously treated with Bactrim, ertapenem, intermittent vancomycin, nafcillin Blood cultures 2, UA ESBL positive Klebsiella UTI Sputum 03/14 - Pseudomonas came back resistant to imipenem, Stenotrophomonas maltophilia Repeat blood cultures 2 and sputum 03/08 pending. Urine negative. Antibiotics per ID ID following-Dr. Puente HEME: Acute blood loss anemia DVT, bilateral posterior tibial vein, IVC filter Septic thrombophlebitis with occlusive thrombus mid cephalic and basilic vein side Received 10 PRBC, 14 FFP, 2 platelets, 1 cryo-02/28 Received 3 units PRBCs Serial hemoglobins every 6 hours Recheck coags Ultrasound 01/23/17 - Bilateral lower extremity with occlusive posterior tibial vein DVTs. Heparin was initially started for DVT but was placed on hold due to LP with suspected traumatic tap. Currently holding full anticoagulation with enoxaparin 100 mg IV twice a day due to anemia as of 02/26 IVC filter was placed 01/25/17. Ultrasound LUE 02/10 occlusive thrombus mid cephalic vein, basilic vein.s. Transfuse 3 units PRBCs 02/27 Transfuse 2 units PRBCs 03/01. Transfused 1 unit PRBCs on 03/14 ENDO: Diabetes mellitus Hypoglycemia History of prior adrenal insufficiency with shock Gout EGD colonoscopy completed 02/22. gastritis and esophagitis, colon polyps Started Hydrocortisone 100 mg every 8 hours 02/21/17 (Recent high dose steroids use now hypotensive, hypoglycemic), steroids had been tapered off. Resumed stress dose steroids on 03/16 as patient back on Levophed for pressor support after intubation. Continue at 50 mg IV every 6 hours Accu-Cheks to maintain euglycemia Novulin R every 4 hours. Low Regimen Currently on insulin detemir 25 units twice a day for hyperglycemia MSK: Right distal ulna fracture. Recommended nonoperative management. PROPH: Lansoprazole 30 mg twice a day twice a day for stress ulcer prophylaxis. Has IVC filter. Therapeutic enoxaparin was placed on hold for retroperitoneal hematoma ACCESS: right IJ CVL placed 03/03-03/20. A left IJ hemodialysis catheter placed 03/01 - 03/23. Left femoral A line placed 03/14 - discontinued 03/19 Dispo: Discussed with MRI TECH at bedside This patient remains critically ill with one or more organ systems which are or may become a threat to life. I have spent in excess of 33 minutes discontinuously in the care and management of this patient. This time is exclusive of procedures, and includes, but is not limited to, evaluation of the patient, review of the medical record, discussions with family, consultants, nursing staff, or respiratory therapy, and documentation in the medical record. Palliative care team is also following patient. Physician Jailene Hernandez Problem Qualifiers (1) Aspiration pneumonia: (2) DVT (deep venous thrombosis): Qualified Codes: I82.443 - Acute embolism and thrombosis of tibial vein, bilateral (3) Acute renal failure: Qualified Codes: N17.9 - Acute kidney failure, unspecified (4) Diabetes mellitus: (5) Gout: Jailene Hernandez MD Apr 14, 2017 18:42
[2017-04-14] MEDS: ATORVASTATIN 10 MG TAB PO SCH (20:46)
[2017-04-15] VITALS (16 sets, daily range): BP systolic 84–105; BP diastolic 54–64; PULSE 78–93; RESP 17–20; TEMP 98–100.5; O2SAT 95–100
[2017-04-15] MEDS: oxyCODONE HCL ORAL CONC 5 MG/0.25 ML SYRINGE PO SCH ×6 (02:00→21:04)
[2017-04-15] MEDS: CEFTOLOZANE-TAZOBACTAM INJ 1,500 MG in SODIUM CHLORIDE 0.9% INJ 100 ML IV SCH ×4 (02:00→23:49)
[2017-04-15] MEDS: RESP: ALBUTEROL 2.5 MG/IPRATROPIUM 0.5 MG NEB (SCH) NEB ×4 (03:51→20:20)
[2017-04-15] MEDS: [UNRECOGNIZED DRUG - REMARK] NEB SCH ×4 (03:51→20:22)
[2017-04-15] MEDS: LINEZOLID 600 MG PREMIX 300 ML IV SCH ×2 (04:53→18:58)
[2017-04-15] MEDS: metroNIDAZOLE 500 MG TAB PO SCH ×3 (04:53→21:03)
[2017-04-15] MEDS: HYDROCORTISONE 10 MG TAB PO SCH ×2 (04:53→18:56)
[2017-04-15] MEDS: FREE WATER G-TUBE SCH ×5 (04:53→23:44)
[2017-04-15] MEDS: LANSOPRAZOLE SOLUTAB 30 MG TAB NG SCH ×2 (07:41→21:02)
[2017-04-15] MEDS: LACTOBACILLUS ACIDOPHILUS TAB PO SCH ×3 (07:41→18:56)
[2017-04-15] MEDS: QUEtiapine FUMARATE 25 MG TAB PO SCH (07:41)
[2017-04-15] MEDS: SULFAMETHOXAZOLE-TRIMETHOPRIM DS 800-160 MG TAB PO SCH ×2 (07:41→21:02)
[2017-04-15] MEDS: FUROSEMIDE 40 MG/4 ML VIAL IV PUSH SCH ×2 (07:41→18:57)
[2017-04-15] MEDS: TAMSULOSIN HCL 0.4 MG CAP PO SCH ×2 (07:41→21:02)
[2017-04-15] MEDS: POTASSIUM CHLORIDE 25 MEQ EFFERVESCENT TAB PO SCH ×2 (07:42→21:02)
[2017-04-15] MEDS: INSULIN DETEMIR 100 UNITS/ML VIAL SQ SCH ×2 (07:42→21:00)
[2017-04-15] MEDS: ATENOLOL 25 MG TAB PO SCH ×2 (07:42→21:00)
[2017-04-15] MEDS: CHOLESTYRAMINE 4 GM PACKET G-TUBE SCH ×2 (07:42→21:01)
[2017-04-15] MEDS: CHLORHEXIDINE 0.12% (ORAL KIT) 15 ML CUP MT SCH ×2 (07:43→21:01)
[2017-04-15] MEDS: SODIUM CHLORIDE 0.9% FLUSH 10 ML FLUSH IV FLUSH SCH ×3 (07:43→21:01)
[2017-04-15] MEDS: INSULIN ASPART SUPPLEMENTAL SCALE SQ SCH ×4 (07:43→21:00)
[2017-04-15] MEDS: COLLAGENASE OINT 30 GM TUBE TOPICAL SCH (07:44)
--- NOTE | 2017-04-15 13:31 | HHI.CCPN ---
Subjective Remarks/Hospital Course Date of admission: 01/22 Date of critical care medicine consult 02/10 due to acute hypoxemic respiratory failure requiring emergent intubation 62-year-old male with a past medical history of hypertension, hyperlipidemia, diabetes mellitus, gout, uric acid kidney stones, kidney disease of unknown stage who originally presented to [facility] emergency department on 01/22 after a fall in which he sustained a right distal ulna fracture. He had been experiencing a gradual primarily lower extremity weakness as well as upper extremity weakness that was progressive. Neurology consult was obtained. MRI revealed no acute stroke. He had multifocal white matter changes. Tiny lacunar infarcts of the brainstem. Lumbar MRI report states L4-L5 disc protrusion with cetnral canal stenosis. Dr. Blackwell evaluated and states no cord compression on MRI C/T spine and recommended nonoperative management. Symptoms were felt to be consistent with transverse myelitis and he underwent Solumedrol 250 mg IV q6 hours 01/27-02/02. He also was found to have occlusive thrombus in the bilateral posterior tibial veins. Heparin was being avoided because he had traumatic lumbar puncture on 01/26 and 02/01. IVC filter was placed 01/25. He was undergoing physical therapy, reportedly making some improvements with plan to eventually discharged home with his son (max assist standing, and bed to chair per PT note). Apparently he had some vomiting the evening of 02/09 and additional vomiting on 02/10. He had a fever 102.8 on 02/09. Last recorded bowel movement was 02/03. Tonight he had acute onset of severe hypoxemia and respiratory distress. [facility] called and he was brought emergently to [facility] where his sats were 64% on 100% nonrebreather with mean arterial pressure 44. He was emergently intubated, CVL and art line placed. He is in septic shock. SUBJ: 02/11: Patient remains intubated sedated, critically ill. FiO2 reduced to 80% after increasing PEEP to 12. In severe septic shock Levophed at 16 mcg/m, vasopressin at 0.04 international units. D/W vascular surgery Dr. Enciso. He performed bedside Left upper extremity incision and debridement and excision of septic cephalic vein. 02/12: Remains intubated sedated profoundly septic, in shock on vasopressin and 7 mcg/min Levophed. FiO2 has improved to 45%, WBC count remains elevated with 20 ,000 white count significant left shift. Slight improvement in creatinine 2.9 urine output 750 ml 24 hours. 2-D echo shows LV ejection fraction 20-25%, no vegetation reported. Blood cultures 4 staph aureus. Wound culture pending 02/13: Remains critically ill but stable to improving. WBC count is down to 16, creatinine improving to 2.36. Off all pressors. Urine output also improving. 1.5L in 24 hours 02/14: Extubated 02/13. Tolerating well. WBC now down to 12.8. Creat improving 2.3 to 2. UO 3.4L. remains off all pressors. Was started on Precedex yesterday night for agitation, currently on 0.5 g per KG per hour. Chest x-ray shows left more than right air space disease 02/20/17 Re consult: 62-year-old male who was originally admitted for lower extremity weakness and found to have what was thought to be possible transverse myelitis. His hospital course his included a healthcare associated pneumonia, septic thrombophlebitis, DVT. He was most recently in the hospital floor where he had significant nausea and vomiting and diarrhea. His C. difficile test was recently negative. However, he has experienced worsening acute on chronic renal failure, hypotension, tachycardia, and severe hypoxemia. He did have a bout of vomiting earlier today, and his hospitalist attending suspects that he may have aspirated. He arrives by rapid response to the ICU with a nonrebreather in place in severe respiratory distress with SPO2 of 85%. I emergently intubate the patient, see separate procedure note for details. At this point the patient was hypotensive and tachycardic. He does have a history of an EF of 20%, however clinically he appears in florid septic shock. I placed central line and arterial line started vasopressors and gentle IV fluid resuscitation with 1 L of LR. Patient today was empirically broadened to vancomycin and Zosyn from his oxacillin which was initially treating MSSA bacteremia. He is recultured. Critical-care medicine is consulted to evaluate and manage his worsening multiorgan system failure and decompensated septic shock 02/21: Patient remains intubated sedated. Becomes anxious tachypnea on sedation lightening. Chest x-ray shows mild left lower lobe infiltrate. WBC count is slightly improved today from 23.2 t0 21. C Diff negative. UO adequate, creat slightly worsening. 1.57 today 02/22: Remains intubated sedated tolerated CPAP yesterday, plan is for EGD/ Colonscopy. WBC count back to normal. UO adequate. Creat stable 02/23: Tolerating CPAP trials following commands. Will do a spontaneous breathing trials. Status post EGD colonoscopy yesterday -Gastritis, esophagitis. Diverticulosis and multiple polyps. Urine output adequate but creatinine increasing to 1.7 with patient requiring multiple straight catheterization. We'll reinsert Sloan. 02/24: Breathing comfortably 24 hours after extubation. Protects airway well. 02/25: Excoriate bottom, will place rectal FMS. Start pureed diet. 02/26: Afebrile. Complaining of nausea and vomiting this afternoon. Increased stool output. Continue potassium replacement today. 02/27: 10 PM overnight, acutely hypotensive. Received 3 units PRBCs. Antibiotic coverage broadened to piperacillin/tazobactam, cortisol and 1 dose of vancomycin. Oxacillin drip currently on hold. Symptomatically, patient continues to vague abdominal pain/nausea vomiting which is unchanged for the past several days. Lipase elevated yesterday. Lactic acid normal. Troponin normal. Urinary retention after removal of Slona. Straight catheter 1300. Cc 02/28: New diagnosis large retroperitoneal hematoma. Received 10 PRBC, 14 FFP, 2 platelets, 1 cryo-, 6 g calcium chloride, 2 is magnesium sulfate and 4 mg Bumex. CTA abdomen revealed possible arterial bleeds iliac, lumbar. Patient is currently on norepinephrine and epinephrine drips and possible need right nephrostomy tube placement due to large hematoma compressing ureter. Intra-abdominal bladder pressures are currently 13 03/01: Afebrile. Received 25 g albumin and 1 unit PRBCs overnight. Intra- abdominal bladder pressures currently 19. Currently on 3 micrograms per minute of norepinephrine. Mqeru-mg-xxsw 1 out of 4 on 4 mics grams per kilogram per minute of cisatracurium. 03/02: Slightly hypothermic overnight. Hemoglobin appears to have stabilized. Troponin bump overnight likely secondary to demand ischemia from hypotension. Hemodynamically stable off all vasopressors. 03/03: Received 1 PRBCs overnight. 3 units currently. Off all vasopressors. Likely rebleeding. Stool is dark. 03/04: Remains unstable. Ventilator dependent. 03/05: afebrile. hgb stable. 03/06: bumex drip started overnight. good uop after bumex initiated. still grossly volume overloaded. Cr downtrending. more awake with transition to propofol. still too volume overloaded to tolerate extubation. hgb stable. 03/07: Afebrile. Tolerating tube feeds at goal with Nepro. Positive BM. On low-dose fentanyl and propofol drips. Potassium currently being replaced. 03/08: Eyes will open on ventilator. Afebrile. Tolerating tube feeding. Failed PSV trial yesterday due to apnea. 03/09: Following commands. Tmax 101. Tolerating tube feeding. One hour PSV trial yesterday. Currently tolerating well so far today 1.5 hours 03/10: Low-grade temperatures. Tolerating PSV trial 10 hours yesterday. Currently at 5/5 at 35%. We'll probably attempt extubation a.m. after hemodialysis. 03/11: Extubated currently in 4 L nasal cannula. Thick secretions thick clear with cough. Currently afebrile. Tolerating diet previously. 03/12: Sleepy this morning but arouses. Following commands. Refusing diet at the present time. On 2 L nasal cannula. 03/13: Patient reintubated last night for worsening respiratory status. Currently sedated on mechanical ventilation. Became hypotensive following intubation and is on Levophed 20 mics per minute. 03/14: Sedated, orally intubated on mech vent at the time of my evaluation this AM, subsequently underwent perc trach placement. Remains on levophed for pressor support. Transfused 1 unit PRBCs today. Persisten 03/15: Trach site clean, dry. CXR with bilateral basilar infiltrates. 03/16: Pulmonary congestion persists. Clinical condition not improving. Prognosis becoming increasingly bleak. 03/17: Glucose intolerance worse. No improvement in neurological function. 03/18: Remains on mechanical ventilation via tracheostomy. Off pressors now. Neurologic status remains poor. 03/19: Drowsy, encephalopathic, arousable. On mechanical ventilation via tracheostomy. Levemir increased for hyperglycemia today. Remains off pressors 03/20: More awake, moves both upper extremities. On mechanical ventilation via tracheostomy. Daily C Pap trials ongoing. 03/21: Awake and alert. On mechanical ventilation via tracheostomy. Opens and closes eyes on command. 03/22: Awake and alert. Tolerated T PIECE for 7 hours yesterday. Dialyzed today. 03/23: Currently on T piece trial. Status post dialysis yesterday on 3 L. Awake and alert. Wants to eat. Subjective 03/24: Currently afebrile. Hemodialysis catheter discontinued yesterday from left IJ. Persistent leukocytosis noted. Potassium will be replaced. Furosemide 40 mg twice a day IV to 20 mg IV twice a day 03/25: WBC count unchanged. Patient on T piece with humidified air greater than 48 hours, tolerating it well. Reconsulted 04/12: The patient was transferred emergently from the floor/ [facility]. Patient was initially seen by pellet machine operator Dr. Estrada, and the patient was noted to be tachypneic on T piece of 40%. ABGs were performed which showed a PaO2 of 60 on T piece of FiO2 of 40%. Chest x-ray was performed which showed loss of entire left hemidiaphragm expanded duty dental assistant consolidation in the left lower lobe. Concern for mucus plugging versus fluid. The patient was transferred emergently to [facility] [place] on a ventilator CT of the chest is pending. Upon arrival in the room the patient is alert and oriented, mouthing words, nodding head to yes and no questions O2 sat is 100% but patient is currently on mechanical ventilation. Currently in no respiratory distress. 04/13: Tmax 99.8. The patient's oxygen requirements have decreased currently FiO2 35% with a PaO2 1 blood gas of 85, O2 saturation 100%. No respiratory distress noted. Patient underwent CT of the chest yesterday noted pleural effusions left greater than right, diagnostic/and therapeutic CT thoracentesis plan for this a.m.. 04/14: Patient underwent CT-guided thoracentesis of the right side with approximately 600 cc withdrawn. Today pellet machine operator Dr. LABOY in and up size indwelling 6.0 Shiley to a 8.0 Shiley. Minimal bleeding noted around the site. X-ray improving. Patient started on CPAP trials today, as well as tube feeds were initiated. 04/15: Placed on T piece this morning via tracheostomy. Appears to be tolerating it. Laying in bed not in any acute distress. Objective Vital Signs Date Time Temp Pulse Resp B/P (MAP) Pulse Ox O2 Delivery O2 Flow Rate FiO2 04/15/17 10:00 79 04/15/17 08:45 93 T-Piece 40 04/15/17 08:20 6.00 04/15/17 08:00 98.7 18 100/64 (76) Intake and Output 04/15/17 04/15/17 04/16/17 08:00 16:00 00:00 Intake Total 1038 ml Output Total 1850 ml Balance -812 ml Result Diagram: 04/13/17 0737 04/14/17 0604 Other Results Microbiology Date/Time Source Procedure Growth Status 04/12/17 23:45 Sputum Endotracheal Gram Stain - Final Complete 04/12/17 23:45 Sputum Culture - Final Pseudomonas Aeruginosa Complete 04/13/17 00:00 Urine Catheterized Urine Legionella Antigen - Final PRESUMPTIVE NEGATIVE FOR LEGIONELLA P... Complete Imaging Last Impressions Chest CT 04/12/17 1558 Signed Impressions: Service Date/Time: March 17:51 - CONCLUSION: 1. Slight increase in size of bilateral effusions and basilar atelectasis, left greater than right compared with February 27. Tracheostomy in good position. Trace Holloway MD Chest X-Ray 04/12/17 1248 Signed Impressions: Service Date/Time: March 10:59 - CONCLUSION: New hazy opacity involving most of the left hemithorax suggesting either large pleural effusion or developing infiltrates. Stable left lower lung consolidation. Candido Patton MD Renal Ultrasound 04/02/17 0000 Signed Impressions: Service Date/Time: Sunday, April 02, 2017 16:59 - CONCLUSION: Limited exam with the left kidney being unable to be evaluated in the bladder not distended. There do appear to be multiple shadowing stones at the right kidney without hydronephrosis. Angelo Manzo MD Wrist X-Ray 03/27/17 0000 Signed Impressions: Service Date/Time: Monday, March 27, 2017 13:21 - CONCLUSION: 1. No acute fracture is identified. A portion of the previously documented distal ulna fracture remains visualized. 2. 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 Angelo Allen MD Aortography 02/28/17 0000 Signed Impressions: Service Date/Time: Tuesday, February 28, 2017 08:01 - CONCLUSION: 1. Active hemorrhage from distal right lateral sacral and iliolumbar branches successfully coil and Gelfoam embolized, as above. Juan Bhakta MD Abdomen/Pelvis CT 02/28/17 0000 Signed Impressions: Service Date/Time: Tuesday, February 28, 2017 06:51 - CONCLUSION: 1. The right retroperitoneal hematoma has increased in size, as above. There are 2 serpiginous arterially enhancing structures visualized, one in the right psoas muscle and another extending into the hematoma at the right iliac fossa. These could represent sites of continued active bleeding. 2. Stable moderate size left and small right pleural effusion with associated compressive atelectasis. 3. Stable small volume of free fluid in the abdomen and pelvis. There is also anasarca. The findings concerning the retroperitoneal hematoma were discussed with Dr. Aguiar via telephone at approximately 7: 10 AM on 02/28/2017. Angelo Allen MD Abdomen X-Ray 02/26/17 0000 Signed Impressions: Service Date/Time: Sunday, February 26, 2017 14:52 - CONCLUSION: 1. Nonobstructive bowel gas pattern. Juan Bhakta MD Upper Extremity Ultrasound 02/10/17 0000 Signed Impressions: Service Date/Time: Friday, February 10, 2017 18:46 - CONCLUSION: Occlusive thrombus in the cephalic and basilic veins. Benjamin Person MD Lung Scan- Nuclear Medicine 02/10/17 0000 Signed Impressions: Service Date/Time: Friday, February 10, 2017 22:17 - CONCLUSION: Low probability pulmonary embolism. Candido Patton MD Head CT 02/10/17 0000 Signed Impressions: Service Date/Time: Friday, February 10, 2017 23:51 - CONCLUSION: Negative noncontrast CT brain. Candido Patton MD Lumbar Puncture Fluoroscopy 02/01/17 0000 Signed Impressions: Service Date/Time: January 09:35 - CONCLUSION: Uncomplicated fluoroscopically guided lumbar puncture. CSF was clear. Nabeel Peralta MD Head Magnetic Resonance Angiography 01/27/17 0000 Signed Impressions: Service Date/Time: Friday, January 27, 2017 10:33 - CONCLUSION: No intracranial vascular abnormality is identified. There is no aneurysm visualized. Angelo Allen MD IVC Filter Placement X-Ray 01/25/17 Signed Impressions: Service Date/Time: January 10:29 - CONCLUSION: Uncomplicated inferior vena cava filter placement as above. Yung Fowler MD Thoracic Spine MRI 01/24/17 Signed Impressions: Service Date/Time: Tuesday, January 24, 2017 22:29 - CONCLUSION: 1. Mild degenerative spondylosis most prominently at T11-L1 with slight effacement of the anterior thecal sac and left lateral recess. No significant neural foraminal stenosis. 2. No acute fracture. Juan Bhakta MD Lumbar Spine MRI 01/23/17 Signed Impressions: Service Date/Time: Monday, January 23, 2017 17:01 - CONCLUSION: 1. At L4-5 is a broad-based disc protrusion with severe central canal and lateral recess stenosis and flattening of the exiting right L4 nerve root. 2. L5-S1 there is a disc protrusion and moderate stenosis with flattening of the exiting L5 nerve roots bilaterally. 3. At L3-4 there is a moderate to severe central stenosis and lateral recess stenosis with mild foraminal stenosis. 4. No acute fracture or spondylolisthesis. Trace Holloway MD Lower Extremity Ultrasound 01/23/17 Signed Impressions: Service Date/Time: Monday, January 23, 2017 09:53 - CONCLUSION: Bilateral focal lower extremity DVT involving the posterior tibial veins. Angelo Garrido MD Cervical Spine MRI 01/23/17 Signed Impressions: Service Date/Time: Monday, January 23, 2017 17:01 - CONCLUSION: 1. Multilevel cervical spine degenerative changes as above. 2. Mild degrees of spinal stenosis at C3/C4-C6/C7. No cord compression or cord signal abnormality. 3. Age indeterminate left paracentral/foraminal disc protrusion at C6/C7. 4. Multilevel foraminal stenosis, most severe on the left at C6/C7. Please see individual levels above. 5. No fracture or subluxation of the cervical spine. Angelo Garrido MD Brain MRI 01/23/17 Signed Impressions: Service Date/Time: Monday, January 23, 2017 17:01 - CONCLUSION: 1. No acute stroke or other acute intracranial abnormality demonstrated. 2. Moderate severity chronic white matter changes, nonspecific but most likely related to chronic small vessel disease. 3. Few scattered tiny lacunar infarcts of the brainstem. 4. Given the findings are not entirely specific, clinical evaluation for possible multiple sclerosis recommended. Angelo Garrido MD Knee X-Ray 01/22/172053 Signed Impressions: Service Date/Time: Sunday, January 22, 2017 21:17 - CONCLUSION: 1. Evidence of moderate to large joint effusion. 2. No acute fracture or malalignment. 3. Mild 3 compartment osteoarthritic change. Benjamin Person MD Hip and Pelvis X-Ray 01/22/172053 Signed Impressions: Service Date/Time: Sunday, January 22, 2017 21:10 - CONCLUSION: 1. Mild to moderate degenerative change of both hips with no acute fracture or malalignment. There is flattening and remodeling of the right humeral head. Benjamin Person MD Last Impressions Chest X-Ray 03/14/17 Signed Impressions: Service Date/Time: Tuesday, March 14, 2017 13:41 - CONCLUSION: 1. Tracheostomy in good position. 2. Left lower lung infiltrates and left pleural effusion. Candido Patton MD Aortography 02/28/17 0000 Signed Impressions: Service Date/Time: Tuesday, February 28, 2017 08:01 - CONCLUSION: 1. Active hemorrhage from distal right lateral sacral and iliolumbar branches successfully coil and Gelfoam embolized, as above. Juan Bhakta MD Abdomen/Pelvis CT 02/28/17 0000 Signed Impressions: Service Date/Time: Tuesday, February 28, 2017 06:51 - CONCLUSION: 1. The right retroperitoneal hematoma has increased in size, as above. There are 2 serpiginous arterially enhancing structures visualized, one in the right psoas muscle and another extending into the hematoma at the right iliac fossa. These could represent sites of continued active bleeding. 2. Stable moderate size left and small right pleural effusion with associated compressive atelectasis. 3. Stable small volume of free fluid in the abdomen and pelvis. There is also anasarca. The findings concerning the retroperitoneal hematoma were discussed with Dr. Aguiar via telephone at approximately 7: 10 AM on 02/28/2017. Angelo Allen MD Chest CT 02/27/17 0000 Signed Impressions: Service Date/Time: Monday, February 27, 2017 18:12 - CONCLUSION: 1. Bilateral pleural effusions with bibasilar atelectasis, left greater than right. Tom Sanchez MD Abdomen X-Ray 02/26/17 Signed Impressions: Service Date/Time: Sunday, February 26, 2017 14:52 - CONCLUSION: 1. Nonobstructive bowel gas pattern. Juan Bhakta MD Upper Extremity Ultrasound 02/10/17 Signed Impressions: Service Date/Time: Friday, February 10, 2017 18:46 - CONCLUSION: Occlusive thrombus in the cephalic and basilic veins. Benjamin Person MD Lung Scan- Nuclear Medicine 02/10/17 Signed Impressions: Service Date/Time: Friday, February 10, 2017 22:17 - CONCLUSION: Low probability pulmonary embolism. Candido Patton MD Head CT 02/10/17 Signed Impressions: Service Date/Time: Friday, February 10, 2017 23:51 - CONCLUSION: Negative noncontrast CT brain. Candido Patton MD Wrist X-Ray 02/06/17 Signed Impressions: Service Date/Time: Monday, February 06, 2017 12:50 - CONCLUSION: Minimally displaced distal radius and ulnar fractures. Armando Dodd MD Lumbar Puncture Fluoroscopy 02/01/17 0000 Signed Impressions: Service Date/Time: January 09:35 - CONCLUSION: Uncomplicated fluoroscopically guided lumbar puncture. CSF was clear. Nabeel Peralta MD Head Magnetic Resonance Angiography 01/27/17 Signed Impressions: Service Date/Time: Friday, January 27, 2017 10:33 - CONCLUSION: No intracranial vascular abnormality is identified. There is no aneurysm visualized. Angelo Allen MD IVC Filter Placement X-Ray 01/25/17 Signed Impressions: Service Date/Time: January 10:29 - CONCLUSION: Uncomplicated inferior vena cava filter placement as above. Yung Fowler MD Thoracic Spine MRI 01/24/17 0000 Signed Impressions: Service Date/Time: Tuesday, January 24, 2017 22:29 - CONCLUSION: 1. Mild degenerative spondylosis most prominently at T11-L1 with slight effacement of the anterior thecal sac and left lateral recess. No significant neural foraminal stenosis. 2. No acute fracture. Juan Bhakta MD Renal Ultrasound 01/23/17 Signed Impressions: Service Date/Time: Monday, January 23, 2017 08:53 - CONCLUSION: 1. Evidence of chronic parenchymal disease of both kidneys. No obstructive uropathy or other acute abnormality demonstrated. 2. Trace ascites, nonspecific. Angelo Garrido MD Lumbar Spine MRI 01/23/17 Signed Impressions: Service Date/Time: Monday, January 23, 2017 17:01 - CONCLUSION: 1. At L4-5 is a broad-based disc protrusion with severe central canal and lateral recess stenosis and flattening of the exiting right L4 nerve root. 2. L5-S1 there is a disc protrusion and moderate stenosis with flattening of the exiting L5 nerve roots bilaterally. 3. At L3-4 there is a moderate to severe central stenosis and lateral recess stenosis with mild foraminal stenosis. 4. No acute fracture or spondylolisthesis. Trace Holloway MD Lower Extremity Ultrasound 01/23/17 Signed Impressions: Service Date/Time: Monday, January 23, 2017 09:53 - CONCLUSION: Bilateral focal lower extremity DVT involving the posterior tibial veins. Angelo Garrido MD Cervical Spine MRI 01/23/17 Signed Impressions: Service Date/Time: Monday, January 23, 2017 17:01 - CONCLUSION: 1. Multilevel cervical spine degenerative changes as above. 2. Mild degrees of spinal stenosis at C3/C4-C6/C7. No cord compression or cord signal abnormality. 3. Age indeterminate left paracentral/foraminal disc protrusion at C6/C7. 4. Multilevel foraminal stenosis, most severe on the left at C6/C7. Please see individual levels above. 5. No fracture or subluxation of the cervical spine. Angelo Garrido MD Brain MRI 01/23/17 Signed Impressions: Service Date/Time: Monday, January 23, 2017 17:01 - CONCLUSION: 1. No acute stroke or other acute intracranial abnormality demonstrated. 2. Moderate severity chronic white matter changes, nonspecific but most likely related to chronic small vessel disease. 3. Few scattered tiny lacunar infarcts of the brainstem. 4. Given the findings are not entirely specific, clinical evaluation for possible multiple sclerosis recommended. Angelo Garrido MD Knee X-Ray 01/22/172053 Signed Impressions: Service Date/Time: Sunday, January 22, 2017 21:17 - CONCLUSION: 1. Evidence of moderate to large joint effusion. 2. No acute fracture or malalignment. 3. Mild 3 compartment osteoarthritic change. Benjamin Person MD Hip and Pelvis X-Ray 01/22/172053 Signed Impressions: Service Date/Time: Sunday, January 22, 2017 21:10 - CONCLUSION: 1. Mild to moderate degenerative change of both hips with no acute fracture or malalignment. There is flattening and remodeling of the right humeral head. Benjamin Person MD Objective Remarks BP 114/82 Pulse 82 O2sat 95% on mechanical ventilation settings 12/500/5, FIO2 .35 GENERAL: 62-year-old male, resting in bed, on mechanical ventilation via tracheostomy in no apparent distress nodding head to yes and no questions HEENT: Normocephalic. Atraumatic. Pupils equal, round, reactive. NECK: Tracheostomy in place, around trach site erythematous, yellowish drainage CHEST: On mechanical ventilation tracheostomy, air entry decreased bilaterally . Trach site reddened with noted yellowish-green drainage CARDIOVASCULAR: S1-S2 regular, no gallop or murmur ABDOMEN distended. No rigidity. Umbilical hernia is reducible. No guarding. PEG tube in place : Positive scrotal edema Sloan in situ MUSCULOSKELETAL: Pulses 2+. 1+ bilateral upper and lower extremity edema. NEUROLOGICAL: Awake and alert, has spontaneous eye opening. Opens and closes eyes on command. Moves 4 limbs weakly to stimulation. Procedures 01/25/2017- Retrievable IVC Filter placement 01/26/17-lumbar puncture with fluoroscopy-by interventional radiology 02/01/17- lumbar puncture fluoroscopy by interventional radiology 02/10/17- Endotracheal Intubation 02/10/17-left IJ central venous line placed 02/10/17-left femoral arterial line placed 02/11/17-Diagnostic and therapeutic bronchoscopy with bronchoalveolar lavage 02/11/17-Left upper extremity incision and debridement with excision of septic cephalic vein 02/13/17- Extubated 02/20/17- endotracheal intubation 02/20/17- Left subclavian central line placement 02/20/17-Right radial A-line placement 02/22/17-EGD/colonoscopy 02/28/17-right radial a line 02/28/17- Endotracheal intubation 02/28/17- right sided introducer catheter placement 02/28/17- Right IJ central line placement 02/28/17-Right chest tube placement 02/28/17- Embolization of inferior and superior sacral branches of right internal iliac artery 03/01/17- Hemodialysis access catheter 03/03/17-Right IJ central line placement 03/11/17-Extubated 03/13/17- Endotracheal intubation 03/14/17-Tracheostomy placement, trach downsized to 6.0 Shiley 03/30/17 03/15/17-PEG tube placement 04/11/17-CT Chest 04/13/17-thoracentesis right 600 cc removed Date of Insertion: Feb 20, 2017 Date of Insertion: Mar 03, 2017 Line: Central Venous Catheter Side: Right Location: Internal, Jugular A/P Problem List: (1) Septic shock ICD Code: A41.9 - Sepsis, unspecified organism; R65.21 - Severe sepsis with septic shock Status: Acute (2) Acute respiratory failure ICD Code: J96.00 - Acute respiratory failure, unspecified whether with hypoxia or hypercapnia Status: Acute (3) Thrombophlebitis arm ICD Code: I80.8 - Phlebitis and thrombophlebitis of other sites (4) Aspiration pneumonia ICD Code: J69.0 - Pneumonitis due to inhalation of food and vomit Status: Acute (5) Atelectasis of left lung ICD Code: J98.11 - Atelectasis Status: Acute (6) Quadriparesis ICD Code: G82.50 - Quadriplegia, unspecified Status: Acute (7) DVT (deep venous thrombosis) ICD Code: I82.409 - Acute embolism and thrombosis of unspecified deep veins of unspecified lower extremity (8) Altered mental status ICD Code: R41.82 - Altered mental status, unspecified Status: Acute (9) CKD (chronic kidney disease) stage 3, GFR 30-59 ml/min ICD Code: N18.3 - Chronic kidney disease, stage 3 (moderate) Status: Chronic (10) Acute renal failure ICD Code: N17.9 - Acute kidney failure, unspecified Status: Acute (11) Diabetes mellitus ICD Code: E11.9 - Type 2 diabetes mellitus without complications Status: Chronic (12) Distal end of ulna fracture, closed ICD Code: S52.609A - Unspecified fracture of lower end of unspecified ulna, initial encounter for closed fracture Status: Acute (13) Gout ICD Code: M10.9 - Gout, unspecified Status: Chronic Assessment and Plan Assessment: NEURO/PSYCH: Acute metabolic encephalopathy- persistent Quadriparesis secondary to suspected transverse myelitis Recurrent falls Suspected transverse myelitis. Received methylprednisolone 250 mg IV every 6 hours 01/27-02/02, started back on hydrocortisone 02/21/17, initially tapering to 50 mg IV every 8 hours starting received 1 dose at 2100 prior to becoming hypotensive. weaning hydrocortisone taper and stopped 03/09. Resumed hydrocortisone 50mg IV Q6hrly on 03/14 as patient became hypotensive following intubation on 03/13 requiring levophed. Continue Hydrocortisone 50 mg IV every 6 hours LP 01/26 and 02/01. CSF culture negative 01/26, 02/01 Oligoclonal bands negative. CSF/serum IgG index is not elevated. VDRL nonreactive. Cryptococcal antigen negative. Brain MRI 01/23 no acute stroke. Few scattered lacunar infarcts of the brainstem. Moderate chronic white matter changes. MRI cervical/thoracic spine- mild spinal stenosis C3/C4 to C6/C7. No cord compression. RPR negative Neurology has been following, Dr. Crenshaw. Repeat CT brain 02/10 - negative Continue PT/OT Continue oxycodone 10 mg every 4 hours scheduled Will consider EMG and Nerve Conduction studies- physical medicine and rehabilitation consulted RESP: Acute hypoxemic respiratory failure Healthcare associated pneumonia/Aspiration Pneumonia S/P Right-sided chest tube 02/28 continue mechanical ventilation as needed, vent bundle, PSV and T piece trials as tolerated -On T piece >48 hours. Humidified room air Albuterol/ipratropium aerosols every 6 hours with albuterol aerosols every 2 hours prn VQ scan 02/10 low probability for PE. CT chest 02/10 - left lower lobe collapse and consolidation. CT chest 02/27 revealed right greater than left pleural effusions. Extubated 02/23. Intubated 02/28. Extubated 03/11, Reintubated on 03/13. Right-sided chest tube placement 02/28 associate school psychologist, removed 03/05. Failed attempt to wean successfully due to volume overload and multiple organ failure. underwent perc tracheostomy 03/14. CT chest 04/12-slight increase and bilateral effusions left greater than right basilar atelectasis CXR 04/13-moderate pleural effusion left with consolidation of the left lung Pulmonology following Dr. Estrada -Patient has a 6.0 Shiley may also need bronchoscopy to require a larger size trach or intubation. 04/13 CT guided thoracentesis scheduled emergently as discussed with Dr. Estrada - 600cc removed (right) 04/14-tracheostomy up sized to 8.0 Shiley by pellet machine operator Dr. Estrada at bedside CV: Severe sepsis - resolved. Systolic heart failure likely chronic with ejection fraction 20-25% Hyperlipidemia History of hypertension Mild TR Sinus tachycardia Elevated troponin likely type II demand ischemia Restarted on Levophed on 03/09 for following intubation, titrated off after starting hydrocortisone. Started hydrocortisone stress dose on 03/14 (as patient has been on steroids and was just tapered off on 03/09.) Patient has on hypotensive twice when attempting to wean off stress dose hydrocortisone in the past. Currently on atenolol 25 mg twice a day. Continue amlodipine 5 mg daily As needed Nitropaste, labetalol and hydralazine for hypertension Atorvastatin 10 mg by mouth daily for dyslipidemia. Troponin 0.[address]-T changes. 2-D echocardiogram 01/11 revealed EF 20-25%. Mild TR. Pulmonary arterial pressures were normal around 20 Troponin 6.55 on 03/02. Currently on furosemide 20 mg IV twice a day per nephrology GI: Large right retroperitoneal hematoma Erosive esophagitis Adematous/hyperplastic colon polyps Severe acute protein calorie malnutrition Nausea/vomiting - resolved. Diarrhea Gastritis Diverticulosis Internal and external hemorrhoids Hiatal hernia Elevated lipase 02/27 CT chest/abdomen and pelvis - 9.4 x 7.5 renal and 16 x 12 cm right psoas muscle hematoma. Fluid around liver and spleen. Right-sided nephrolithiasis CTA abdomen 02/28 - possible blushing around iliac/lumbar vessels Discussed with IR. s/p attempted embolization CT abdomen and pelvis 02/10 atrophic left kidney. Bilateral inguinal hernias fat- containing. Nonobstructing 12 mm right kidney stone repeat CT abd/pelvis did not show evidence of obstruction. patient clinically has been having diarrhea (c. diff negative 02/19). also with nausea/vomiting of unclear etiology. EGD/Colonoscopy-02/22/17 showed gastritis esophagitis, hiatal hernia, diverticulosis and multiple polyps in descending colon and sigmoid which were snared biopsied. Biopsy pending Dr. Lewis consulted for intervention if needed for elevated IAP. will continue to check as needed Status post PEG tube placement by consulted Previously on 1800-calorie ADA diet to this readmission to ICU, consult dietary for tube feeds Lansoprazole 30 mg twice a day for GI prophylaxis FEN/RENAL: Acute kidney injury in the setting of Chronic kidney disease stage 3-4 History of uric acid kidney stones with prior stent BPH Nonfunctioning left kidney Acute intravascular volume overload Hypokalemia Sloan placed due to urinary retention and worsening creatinine Maintain Sloan secondary to urinary retention Monitor intake and output q1hr. Monitor electrolytes. RIOS/SPEP negative. 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 Recommended nephrostomy tube if obstruction Nephrology consulted, hemodialysis per nephrology. Making urine. Due to acute illness holding tamsulosin 0.4 mg by mouth daily for BPH ICU electrolyte replacement protocol Last IHD was 03/22 ID: Septic shock- resolved. Abscess and Suppurative thrombophlebitis left upper extremity MSSA bacteremia Klebsiella UTI ESBL positive Acute aspiration pneumonia/HCAP Previously treated with Bactrim, ertapenem, intermittent vancomycin, nafcillin Blood cultures 2, UA ESBL positive Klebsiella UTI Sputum 03/14 - Pseudomonas came back resistant to imipenem, Stenotrophomonas maltophilia Repeat blood cultures 2 and sputum 03/08 pending. Urine negative. Antibiotics per ID ID following-Dr. Puente HEME: Acute blood loss anemia DVT, bilateral posterior tibial vein, IVC filter Septic thrombophlebitis with occlusive thrombus mid cephalic and basilic vein side Received 10 PRBC, 14 FFP, 2 platelets, 1 cryo-02/28 Received 3 units PRBCs Serial hemoglobins every 6 hours Recheck coags Ultrasound 01/23/17 - Bilateral lower extremity with occlusive posterior tibial vein DVTs. Heparin was initially started for DVT but was placed on hold due to LP with suspected traumatic tap. Currently holding full anticoagulation with enoxaparin 100 mg IV twice a day due to anemia as of 02/26 IVC filter was placed 01/25/17. Ultrasound LUE 02/10 occlusive thrombus mid cephalic vein, basilic vein.s. Transfuse 3 units PRBCs 02/27 Transfuse 2 units PRBCs 03/01. Transfused 1 unit PRBCs on 03/14 ENDO: Diabetes mellitus Hypoglycemia History of prior adrenal insufficiency with shock Gout EGD colonoscopy completed 02/22. gastritis and esophagitis, colon polyps Started Hydrocortisone 100 mg every 8 hours 02/21/17 (Recent high dose steroids use now hypotensive, hypoglycemic), steroids had been tapered off. Resumed stress dose steroids on 03/16 as patient back on Levophed for pressor support after intubation. Continue at 50 mg IV every 6 hours Accu-Cheks to maintain euglycemia Novulin R every 4 hours. Low Regimen Currently on insulin detemir 25 units twice a day for hyperglycemia MSK: Right distal ulna fracture. Recommended nonoperative management. PROPH: Lansoprazole 30 mg twice a day twice a day for stress ulcer prophylaxis. Has IVC filter. Therapeutic enoxaparin was placed on hold for retroperitoneal hematoma ACCESS: right IJ CVL placed 03/03-03/20. A left IJ hemodialysis catheter placed 03/01 - 03/23. Left femoral A line placed 03/14 - discontinued 03/19 Dispo: Discussed with APPLICATIONS MANAGER at bedside Problem Qualifiers (1) Aspiration pneumonia: (2) DVT (deep venous thrombosis): Qualified Codes: I82.443 - Acute embolism and thrombosis of tibial vein, bilateral (3) Acute renal failure: Qualified Codes: N17.9 - Acute kidney failure, unspecified (4) Diabetes mellitus: (5) Gout: Devin Puente MD Apr 15, 2017 13:30
--- NOTE | 2017-04-15 13:39 | HHI.PR ---
Subjective Remarks on trach collar no new issues s/p thora and chest tube insertion still having secretions but less Objective Vital Signs Date Time Temp Pulse Resp B/P (MAP) Pulse Ox O2 Delivery O2 Flow Rate FiO2 04/15/17 10:00 79 04/15/17 08:45 93 T-Piece 40 04/15/17 08:20 95 T-piece 6.00 40 04/15/17 08:00 98.7 85 18 100/64 (76) 100 04/15/17 08:00 35 04/15/17 08:00 85 04/15/17 06:00 93 04/15/17 04:00 80 04/15/17 04:00 35 04/15/17 04:00 98.8 80 17 101/58 (72) 99 04/15/17 03:50 99 35 04/15/17 02:00 78 04/15/17 00:21 100 35 04/15/17 00:00 80 04/15/17 00:00 98.6 80 19 95/59 (71) 100 04/15/17 00:00 35 04/14/17 22:00 81 04/14/17 21:20 100 35 04/14/17 20:23 100 80 04/14/17 20:00 99.4 76 18 100/61 (74) 100 04/14/17 20:00 76 04/14/17 20:00 35 04/14/17 18:59 17 04/14/17 18:00 82 04/14/17 16:00 77 04/14/17 16:00 98.0 77 18 86/52 (63) 100 04/14/17 16:00 35 04/14/17 15:02 100 35 04/14/17 14:00 84 I/O 04/14/17 04/14/17 04/14/17 04/15/17 04/15/17 04/15/17 07:00 15:00 23:00 07:00 15:00 23:00 Intake Total 1020 ml 700 ml 900 ml 1038 ml Output Total 2400 ml 1350 ml 1850 ml Balance -1380 ml 700 ml -450 ml -812 ml IV Total 400 ml 700 ml 500 ml 400 ml Tube Irrigant 220 ml 400 ml 118 ml Other 400 ml 520 ml Output Urine Total 1800 ml 1350 ml 1700 ml Stool Total 600 ml 0 ml 150 ml Result Diagram: 04/13/17 0737 04/14/17 0604 Objective Remarks GA: nad trach in place, less purulant secretions around trach lungs: clear Heart: s1, S2 Abd: soft Neuro : no Change, awake followed simple commands Ext: no edema, no cyanosis Assessment and Plan Assessment and Plan 1: S/p Trach 2. s/p severe sepsis 3. Severe Deconditioning 4. Large Exudative Pleural effusion s/p drainage 5. Hypotension better 6. VDRF.. I will cont current tx plan F/U on cultures from Pleural fluid agree with trach collar i will not downsize his trach anytime soon cont broad spectrum abx TF GI/DVT prevention Rishabh Estrada MD Apr 15, 2017 13:39
[2017-04-15] MEDS: ATORVASTATIN 10 MG TAB PO SCH (21:02)
[2017-04-15] MEDS: ACETAMINOPHEN 650 MG/20.3 ML UDC PO PRN (23:49)
[2017-04-16] VITALS (15 sets, daily range): BP systolic 88–100; BP diastolic 58–66; PULSE 78–102; RESP 14–23; TEMP 98.2–101.5; O2SAT 95–100
[2017-04-16] MEDS: oxyCODONE HCL ORAL CONC 5 MG/0.25 ML SYRINGE PO SCH ×6 (01:32→21:46)
[2017-04-16] MEDS: RESP: ALBUTEROL 2.5 MG/IPRATROPIUM 0.5 MG NEB (SCH) NEB ×4 (03:57→21:26)
[2017-04-16] MEDS: metroNIDAZOLE 500 MG TAB PO SCH ×3 (05:29→21:45)
[2017-04-16] MEDS: LINEZOLID 600 MG PREMIX 300 ML IV SCH (05:29)
[2017-04-16] MEDS: HYDROCORTISONE 10 MG TAB PO SCH ×2 (05:29→18:31)
[2017-04-16] MEDS: FREE WATER G-TUBE SCH ×3 (05:29→18:00)
[2017-04-16] MEDS: INSULIN ASPART SUPPLEMENTAL SCALE SQ SCH ×4 (07:25→21:00)
[2017-04-16] MEDS: CHLORHEXIDINE 0.12% (ORAL KIT) 15 ML CUP MT SCH ×2 (08:00→20:00)
[2017-04-16] MEDS: ATENOLOL 25 MG TAB PO SCH ×2 (08:52→21:00)
[2017-04-16] MEDS: FUROSEMIDE 40 MG/4 ML VIAL IV PUSH SCH ×2 (08:52→18:31)
[2017-04-16] MEDS: POTASSIUM CHLORIDE 25 MEQ EFFERVESCENT TAB PO SCH ×2 (08:52→21:12)
[2017-04-16] MEDS: TAMSULOSIN HCL 0.4 MG CAP PO SCH ×2 (08:52→21:12)
[2017-04-16] MEDS: INSULIN DETEMIR 100 UNITS/ML VIAL SQ SCH ×2 (08:52→21:00)
[2017-04-16] MEDS: COLLAGENASE OINT 30 GM TUBE TOPICAL SCH (08:53)
[2017-04-16] MEDS: LACTOBACILLUS ACIDOPHILUS TAB PO SCH ×3 (08:53→18:31)
[2017-04-16] MEDS: CHOLESTYRAMINE 4 GM PACKET G-TUBE SCH (08:53)
[2017-04-16] MEDS: LANSOPRAZOLE SOLUTAB 30 MG TAB NG SCH ×2 (08:54→21:12)
[2017-04-16] MEDS: SULFAMETHOXAZOLE-TRIMETHOPRIM DS 800-160 MG TAB PO SCH (08:54)
[2017-04-16] MEDS: QUEtiapine FUMARATE 25 MG TAB PO SCH (08:54)
[2017-04-16] MEDS: SODIUM CHLORIDE 0.9% FLUSH 10 ML FLUSH IV FLUSH SCH ×3 (08:54→21:12)
--- NOTE | 2017-04-16 09:26 | HHI.IDPN ---
Subjective Subjective Remarks Patient is a 62-year-old male, admitted to the hospital for evaluation of pain in his right wrist. He gave a history of falling about a week ago and apparently had immediate pain in the right wrist. He did not seek any medical attention initially because reportedly he was very busy. He eventually presented, and he was found to have a distal ulnar fracture on plain films. He also had some redness and swelling. Orthopedics saw the patient, and was being treated conservatively with the splint. During this hospitalization also he started complaining of generalized weakness but more so in his lower extremity than his upper extremity. He had swelling in both lower extremity which revealed evidence of DVT in the posterior tibial veins. Neurology had seen the patient and he underwent lumbar puncture which apparently was traumatic. Patient was therefore not given anticoagulation because of the traumatic LP, and he underwent placement of an IVC filter on January 25. Patient had another lumbar puncture on February 01. He was felt to have transverse myelitis, and he was given high-dose IV Solu-Medrol from January 27 to February 02. There was apparently some improvement in his weakness. The imaging studies done for his weakness showed some spinal stenosis, and neurosurgery was consult that and recommended that there was no surgical intervention to be done. Patient has been stabilizing, but last night apparently deteriorated, and he ended up getting intubated, and had significant hypotension requiring pressors. There was also an ultrasound done of his left upper extremity which showed DVT, and there was evidence of superior 2 thrombophlebitis. Vascular surgery was consult to it and he had IND on his left upper extremity. Patient has had some fevers since yesterday. 2 blood cultures were done yesterday and they're now reported as growing gram-positive cocci in [place] in clusters. He is currently sedated and intubated. He is on Levophed and vasopressin. A central line was placed as well as a femoral a line. He apparently had an IV in his left upper extremity and that was removed yesterday. Patient also has history of chronic kidney disease, and nephrology evaluated the patient. He was just being monitored for his renal insufficiency. Reconsulted 04/12 for low grade fever, leucocytosis, worsening CXR concern for new pneumonia. Notes reviewed Had low grade temp late 04/12, and early am 04/13 Afebrile after that and again last night Has been on T-piece since yesterday Has a lot of secretions from trach - white to very light yellow BP ok Temps ok this morning Looks comfortable on T-piece Has a very moist cough Had thoracentesis 04/13 - 660 ml, fluid did not look infected Sputum with MDR PSAE No central line H/o DVTs bilateral LE S/P IVC filter. H/o DVTs bilateral UE. Antibiotics Zerbaxa IV Flagyl IV Zyvox IV Current Medications Medications (Trade) Dose Ordered Sig/Rosalia Route Start Time Stop Time Status Last Admin (NS Flush) 2 ml UNSCH PRN IV FLUSH 01/23/17 00:30 03/29/17 05:59 (NS Flush) 2 ml BID IV FLUSH 01/23/17 09:00 04/16/17 08:54 (Zofran Inj) 4 mg Q6H PRN IVP 01/23/17 00:30 02/26/17 17:23 (Narcan Inj) 0.4 mg UNSCH PRN IV 01/23/17 00:30 (Edna-Colace) 1 tab BID PO 01/23/17 09:00 Future Hold 02/24/17 20:31 (Dulcolax Supp) 10 mg DAILY PRN RECTAL 01/23/17 00:30 (Lipitor) 10 mg HS PO 01/24/17 21:00 Future hold 04/15/17 21:02 (Glucagon Inj) 1 mg UNSCH PRN OTHER 02/11/17 05:45 02/18/17 18:53 (Flomax) 0.4 mg Q12HR PO 02/17/17 15:00 Future hold 04/16/17 08:52 (Lovenox Inj) 100 mg Q12H SQ 02/18/17 12:00 Future Hold 02/26/17 16:20 (Lactinex) 1 tab TID PO 02/19/17 13:00 04/16/17 08:53 (D50w (Vial) Inj) 25 ml UNSCH PRN IV PUSH 02/20/17 12:45 03/27/17 13:20 (Questran Light Pkt) 4 gm Q12HR PO 02/25/17 21:00 Future Hold 02/27/17 10:32 (Aldactone) 25 mg DAILY PO 02/27/17 09:00 Future Hold (Peridex 0.12% Liq) 15 ml BID@08,20 MT 02/28/17 08:00 04/15/17 21:01 (NS Flush) UNSCH PRN IV FLUSH 03/01/17 13:00 (Heparin Inj) UNSCH PRN IV FLUSH 03/01/17 13:00 (NS Flush) DAILY IV FLUSH 03/04/17 09:00 04/16/17 08:55 (NS Flush) UNSCH PRN IV FLUSH 03/03/17 18:45 (Prevacid Odt) 30 mg BID NG 03/07/17 21:00 04/16/17 08:54 (Tylenol 650 Mg/ 20 ml Liq) 650 mg Q6H PRN PO 03/09/17 10:15 04/15/17 23:49 (Tenormin) 25 mg Q12HR PO 03/12/17 10:00 04/16/17 08:52 (Epogen Inj) 10,000 units UNSCH PRN IV PUSH 03/17/17 11:30 03/22/17 10:52 (Nitroglycerin 2% Oint) 2 inch Q6H PRN TOPICAL 03/23/17 14:00 03/29/17 01:20 (Norvasc) 10 mg DAILY PO 03/28/17 09:00 04/16/17 08:54 (Roxicodone Intensol Liq) 5 mg Q4H PO 04/01/17 18:00 04/16/17 05:29 (NovoLOG SUPPLEMENTAL SCALE) 1 ACHS SLIDING SCALE SQ 04/02/17 12:00 04/08/17 10:15 (Levemir Inj) 10 units BID SQ 04/03/17 21:00 04/16/17 08:52 (NovoLOG INJ) 5 units TIDAC SQ 04/03/17 17:00 Future Hold 04/10/17 08:00 (Xanax) 0.125 mg Q6H PRN PO 04/03/17 22:30 04/10/17 04:01 (Pill Splitter) 1 ea UNSCH PRN OTHER 04/03/17 22:45 (K-Lyte Cl Eff) 25 meq Q12HR PO 04/04/17 14:30 04/16/17 08:52 (Levsin Liq) 0.125 mg Q4H PRN G-TUBE 04/06/17 15:00 04/12/17 10:09 (Questran 4 Gm Pkt) 4 gm Q12HR G-TUBE 04/08/17 21:00 04/16/17 08:53 (SEROquel) 25 mg DAILY PO 04/09/17 09:00 04/16/17 08:54 (Santyl Oint) 1 applic DAILY TOPICAL 04/10/17 09:00 04/16/17 08:53 (Cortef) 10 mg Q12H PO 04/10/17 18:00 04/16/17 05:29 (Lasix Inj) 40 mg BID@09,18 IV PUSH 04/12/17 18:00 04/16/17 08:52 (Free Water) 200 ml Q6HR G-TUBE 04/12/17 18:00 04/16/17 05:29 Ceftolozane/ Tazobactam 1500 mg/Sodium Chloride 100 ml @ 100 mls/hr Q8H IV 04/12/17 17:00 04/15/17 23:49 (Duoneb Neb) 1 ampule Q6HR NEB NEB 04/12/17 22:00 04/16/17 09:17 (Duoneb Neb) 1 ampule Q2HR NEB PRN NEB 04/12/17 17:00 04/14/17 12:38 (Flagyl) 500 mg Q8HR PO 04/13/17 14:00 04/16/17 05:29 Dexmedetomidine HCl 200 mcg/ Sodium Chloride 50 ml @ 4.97 mls/hr TITRATE PRN IV 04/14/17 14:45 04/14/17 15:04 (Tobramycin Neb) 80 mg Q12HR NEB NEB 04/16/17 09:15 Lines PIV - Line sites with no e.o infection Past Medical History Reviewed Allergies: Coded Allergies: levofloxacin (Verified Allergy, Severe, 01/22/17) Objective . Vital Signs Date Time Temp Pulse Resp B/P (MAP) Pulse Ox O2 Delivery O2 Flow Rate FiO2 04/16/17 07:43 97 T-piece 6.00 40 04/16/17 06:00 89 04/16/17 04:00 85 04/16/17 04:00 99.9 82 14 88/61 (70) 96 04/16/17 02:00 78 04/16/17 00:00 86 04/16/17 00:00 101.5 86 18 100/66 (77) 100 04/15/17 22:00 91 04/15/17 20:24 99 T-piece 40 04/15/17 20:00 100.5 86 18 84/54 (64) 98 04/15/17 20:00 86 04/15/17 19:00 100 T-Piece 40 04/15/17 18:00 91 04/15/17 16:00 85 04/15/17 16:00 98.0 85 20 93/59 (70) 98 04/15/17 14:00 85 04/15/17 13:19 16 04/15/17 12:00 86 04/15/17 12:00 98.8 86 20 105/64 (78) 95 04/15/17 10:00 79 . Microbiology Date/Time Source Procedure Growth Status 04/13/17 16:30 Fluid Pleural Fluid Fungal Smear - Final NO FUNGAL ELEMENTS SEEN. Resulted 04/13/17 16:30 Fluid Pleural Fluid Fungal Culture Pending Resulted 04/13/17 16:30 Fluid Pleural Fluid Acid Fast Stain - Final NO ACID FAST BACILLI SEEN Resulted 04/13/17 16:30 Fluid Pleural Fluid Mycobacterial Culture Pending Resulted 04/13/17 16:30 Fluid Pleural Fluid Gram Stain - Final Resulted 04/13/17 16:30 Fluid Pleural Fluid Body Fluid Culture - Preliminary NO GROWTH IN 48 HOURS. Resulted Imaging Chest X-Ray 04/14/17 0600 Signed Impressions: Service Date/Time: Friday, April 14, 2017 02:33 - CONCLUSION: 1. Interval placement of left-sided chest tube with improvement in aeration and opacity in the left lung. 2. Mild hazy residual left lung greatest at the lung base. Benjamin Person MD Thoracentesis 04/13/17 1054 Signed Impressions: Service Date/Time: Thursday, April 13, 2017 15:26 - CONCLUSION: Uncomplicated CT-guided right thoracentesis. Candido Mendoza Jr., MD Chest X-Ray 03/14/17 0000 Signed Impressions: Service Date/Time: Tuesday, March 14, 2017 13:41 - CONCLUSION: 1. Tracheostomy in good position. 2. Left lower lung infiltrates and left pleural effusion. Candido Patton MD Aortography 02/28/17 0000 Signed Impressions: Service Date/Time: Tuesday, February 28, 2017 08:01 - CONCLUSION: 1. Active hemorrhage from distal right lateral sacral and iliolumbar branches successfully coil and Gelfoam embolized, as above. Juan Bhakta MD Abdomen/Pelvis CT 02/28/17 0000 Signed Impressions: Service Date/Time: Tuesday, February 28, 2017 06:51 - CONCLUSION: 1. The right retroperitoneal hematoma has increased in size, as above. There are 2 serpiginous arterially enhancing structures visualized, one in the right psoas muscle and another extending into the hematoma at the right iliac fossa. These could represent sites of continued active bleeding. 2. Stable moderate size left and small right pleural effusion with associated compressive atelectasis. 3. Stable small volume of free fluid in the abdomen and pelvis. There is also anasarca. The findings concerning the retroperitoneal hematoma were discussed with Dr. Aguiar via telephone at approximately 7: 10 AM on 02/28/2017. Angelo Allen MD Chest CT 02/27/17 0000 Signed Impressions: Service Date/Time: Monday, February 27, 2017 18:12 - CONCLUSION: 1. Bilateral pleural effusions with bibasilar atelectasis, left greater than right. Tom Sanchez MD Abdomen X-Ray 02/26/17 0000 Signed Impressions: Service Date/Time: Sunday, February 26, 2017 14:52 - CONCLUSION: 1. Nonobstructive bowel gas pattern. Juan Bhakta MD Upper Extremity Ultrasound 02/10/17 0000 Signed Impressions: Service Date/Time: Friday, February 10, 2017 18:46 - CONCLUSION: Occlusive thrombus in the cephalic and basilic veins. Benjamin Person MD Lung Scan-V Nuclear Medicine 02/10/17 0000 Signed Impressions: Service Date/Time: Friday, February 10, 2017 22:17 - CONCLUSION: Low probability pulmonary embolism. Candido Patton MD Head CT 02/10/17 0000 Signed Impressions: Service Date/Time: Friday, February 10, 2017 23:51 - CONCLUSION: Negative noncontrast CT brain. Candido Patton MD Wrist X-Ray 02/06/17 0000 Signed Impressions: Service Date/Time: Monday, February 06, 2017 12:50 - CONCLUSION: Minimally displaced distal radius and ulnar fractures. Armando Dodd MD Lumbar Puncture Fluoroscopy 02/01/17 0000 Signed Impressions: Service Date/Time: January 09:35 - CONCLUSION: Uncomplicated fluoroscopically guided lumbar puncture. CSF was clear. Nabeel Peralta MD Head Magnetic Resonance Angiography 01/27/17 0000 Signed Impressions: Service Date/Time: Friday, January 27, 2017 10:33 - CONCLUSION: No intracranial vascular abnormality is identified. There is no aneurysm visualized. Angelo Allen MD IVC Filter Placement X-Ray 01/25/17 Signed Impressions: Service Date/Time: January 10:29 - CONCLUSION: Uncomplicated inferior vena cava filter placement as above. Yung Fowler MD Thoracic Spine MRI 01/24/17 0000 Signed Impressions: Service Date/Time: Tuesday, January 24, 2017 22:29 - CONCLUSION: 1. Mild degenerative spondylosis most prominently at T11-L1 with slight effacement of the anterior thecal sac and left lateral recess. No significant neural foraminal stenosis. 2. No acute fracture. Juan Bhakta MD Renal Ultrasound 01/23/17 0000 Signed Impressions: Service Date/Time: Monday, January 23, 2017 08:53 - CONCLUSION: 1. Evidence of chronic parenchymal disease of both kidneys. No obstructive uropathy or other acute abnormality demonstrated. 2. Trace ascites, nonspecific. Angelo Garrido MD Lumbar Spine MRI 01/23/17 0000 Signed Impressions: Service Date/Time: Monday, January 23, 2017 17:01 - CONCLUSION: 1. At L4-5 is a broad-based disc protrusion with severe central canal and lateral recess stenosis and flattening of the exiting right L4 nerve root. 2. L5-S1 there is a disc protrusion and moderate stenosis with flattening of the exiting L5 nerve roots bilaterally. 3. At L3-4 there is a moderate to severe central stenosis and lateral recess stenosis with mild foraminal stenosis. 4. No acute fracture or spondylolisthesis. Trace Holloway MD Lower Extremity Ultrasound 01/23/17 0000 Signed Impressions: Service Date/Time: Monday, January 23, 2017 09:53 - CONCLUSION: Bilateral focal lower extremity DVT involving the posterior tibial veins. Angelo Garrido MD Cervical Spine MRI 01/23/17 0000 Signed Impressions: Service Date/Time: Monday, January 23, 2017 17:01 - CONCLUSION: 1. Multilevel cervical spine degenerative changes as above. 2. Mild degrees of spinal stenosis at C3/C4-C6/C7. No cord compression or cord signal abnormality. 3. Age indeterminate left paracentral/foraminal disc protrusion at C6/C7. 4. Multilevel foraminal stenosis, most severe on the left at C6/C7. Please see individual levels above. 5. No fracture or subluxation of the cervical spine. Angelo Garrido MD Brain MRI 01/23/17 0000 Signed Impressions: Service Date/Time: Monday, January 23, 2017 17:01 - CONCLUSION: 1. No acute stroke or other acute intracranial abnormality demonstrated. 2. Moderate severity chronic white matter changes, nonspecific but most likely related to chronic small vessel disease. 3. Few scattered tiny lacunar infarcts of the brainstem. 4. Given the findings are not entirely specific, clinical evaluation for possible multiple sclerosis recommended. Angelo Garrido MD Knee X-Ray 01/22/[id number] Signed Impressions: Service Date/Time: Sunday, January 22, 2017 21:17 - CONCLUSION: 1. Evidence of moderate to large joint effusion. 2. No acute fracture or malalignment. 3. Mild 3 compartment osteoarthritic change. Benjamin Person MD Hip and Pelvis X-Ray [id number]/22/[id number] Signed Impressions: Service Date/Time: Sunday, January 22, 2017 21:10 - CONCLUSION: 1. Mild to moderate degenerative change of both hips with no acute fracture or malalignment. There is flattening and remodeling of the right humeral head. Benjamin Person MD Physical Exam GENERAL: Awake and alert, on T-piece, not in distress SKIN: Cool and dry. No generalized rash. Edematous in extremities EYES: Val[place] conjunctiva. No petechia or hemorrhage. EARS, NOSE AND THROAT: Nose without bleeding or purulent nasal discharge. Dry oral mucosa NECK: Trach site ok. CARDIOVASCULAR: Regular rate and rhythm. Soft heart sounds. No murmurs RESPIRATORY: Coarse BS bilaterally, decreased at bases. ABDOMEN: Soft, not tender, not distended, PEG site ok. No guarding EXTREMITIES: No clubbing, cyanosis. Edema feet better; edema hands better, still present NEUROLOGICAL: awake and following commands PSYCHIATRIC: Calm and cooperative LINE: Lines with no evidence of infection Assessment & Plan Remarks IMPRESSION New Sepsis (fever and leucocytosis) Aspiration Pneumonia in health care setting. Mucus plugs with atelectasis. Worsening leucocytosis. ESBL in urine in recent past. 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 PNA, ?plugging/atelctasis - MDR, I to Zerbaxa, has been tolerating T-piece - likely effusion adding to his respiratory problems, on top of his plugging /secretions Large R retroperitoneal bleed, S/P multiple transfusions and S/P coiling of bleeders Anemia, due to bleed, retroperitoneal MSSA sepsis, due to suppurative thrombophlebitis LUE, S/P I and D and excision of portion of cephalic vein - S/P Rx Respiratory failure, has had several intubations - reintubated again 02/28, extubated 03/11 - reintubated again - S/P trach 03/14 Recent Rx 7 days high dose solumedrol for transverse myelitis Wu LE DVT has IVC filter placed 01/25 - ?hypercoagulable state Chronic kidney disease, worsening creatinine - shock and compression of ureter by hematoma Known DM, HTN RECOMMENDATION Continue Zerbaxa IV (with MDR PSAE and ESBL history) for now Continue oral Flagyl for now Stop Zyvox Stop Bactrim Tobra nebs 2 BC today UA and C/S Pulmonary following Monitor temps Follow C/S Monitor progress D/W Irene Vogel MD Apr 16, 2017 09:26
[2017-04-16] MEDS: RESP: TOBRAMYCIN SULFATE 80 MG/2 ML NEB NEB SCH ×2 (11:38→21:49)
[2017-04-16] MEDS: CEFTOLOZANE-TAZOBACTAM INJ 1,500 MG in SODIUM CHLORIDE 0.9% INJ 100 ML IV SCH ×2 (11:56→17:00)
--- NOTE | 2017-04-16 12:35 | HHI.CCPN ---
Subjective Remarks/Hospital Course Date of admission: 01/22 Date of critical care medicine consult 02/10 due to acute hypoxemic respiratory failure requiring emergent intubation 62-year-old male with a past medical history of hypertension, hyperlipidemia, diabetes mellitus, gout, uric acid kidney stones, kidney disease of unknown stage who originally presented to [facility] emergency department on 01/22 after a fall in which he sustained a right distal ulna fracture. He had been experiencing a gradual primarily lower extremity weakness as well as upper extremity weakness that was progressive. Neurology consult was obtained. MRI revealed no acute stroke. He had multifocal white matter changes. Tiny lacunar infarcts of the brainstem. Lumbar MRI report states L4-L5 disc protrusion with cetnral canal stenosis. Dr. Blackwell evaluated and states no cord compression on MRI C/T spine and recommended nonoperative management. Symptoms were felt to be consistent with transverse myelitis and he underwent Solumedrol 250 mg IV q6 hours 01/27-02/02. He also was found to have occlusive thrombus in the bilateral posterior tibial veins. Heparin was being avoided because he had traumatic lumbar puncture on 01/26 and 02/01. IVC filter was placed 01/25. He was undergoing physical therapy, reportedly making some improvements with plan to eventually discharged home with his son (max assist standing, and bed to chair per PT note). Apparently he had some vomiting the evening of 02/09 and additional vomiting on 02/10. He had a fever 102.8 on 02/09. Last recorded bowel movement was 02/03. Tonight he had acute onset of severe hypoxemia and respiratory distress. [facility] called and he was brought emergently to [facility] where his sats were 64% on 100% nonrebreather with mean arterial pressure 44. He was emergently intubated, CVL and art line placed. He is in septic shock. SUBJ: 02/11: Patient remains intubated sedated, critically ill. FiO2 reduced to 80% after increasing PEEP to 12. In severe septic shock Levophed at 16 mcg/m, vasopressin at 0.04 international units. D/W vascular surgery Dr. Enciso. He performed bedside Left upper extremity incision and debridement and excision of septic cephalic vein. 02/12: Remains intubated sedated profoundly septic, in shock on vasopressin and 7 mcg/min Levophed. FiO2 has improved to 45%, WBC count remains elevated with 20 ,000 white count significant left shift. Slight improvement in creatinine 2.9 urine output 750 ml 24 hours. 2-D echo shows LV ejection fraction 20-25%, no vegetation reported. Blood cultures 4 staph aureus. Wound culture pending 02/13: Remains critically ill but stable to improving. WBC count is down to 16, creatinine improving to 2.36. Off all pressors. Urine output also improving. 1.5L in 24 hours 02/14: Extubated 02/13. Tolerating well. WBC now down to 12.8. Creat improving 2.3 to 2. UO 3.4L. remains off all pressors. Was started on Precedex yesterday night for agitation, currently on 0.5 g per KG per hour. Chest x-ray shows left more than right air space disease 02/20/17 Re consult: 62-year-old male who was originally admitted for lower extremity weakness and found to have what was thought to be possible transverse myelitis. His hospital course his included a healthcare associated pneumonia, septic thrombophlebitis, DVT. He was most recently in the hospital floor where he had significant nausea and vomiting and diarrhea. His C. difficile test was recently negative. However, he has experienced worsening acute on chronic renal failure, hypotension, tachycardia, and severe hypoxemia. He did have a bout of vomiting earlier today, and his hospitalist attending suspects that he may have aspirated. He arrives by rapid response to the ICU with a nonrebreather in place in severe respiratory distress with SPO2 of 85%. I emergently intubate the patient, see separate procedure note for details. At this point the patient was hypotensive and tachycardic. He does have a history of an EF of 20%, however clinically he appears in florid septic shock. I placed central line and arterial line started vasopressors and gentle IV fluid resuscitation with 1 L of LR. Patient today was empirically broadened to vancomycin and Zosyn from his oxacillin which was initially treating MSSA bacteremia. He is recultured. Critical-care medicine is consulted to evaluate and manage his worsening multiorgan system failure and decompensated septic shock 02/21: Patient remains intubated sedated. Becomes anxious tachypnea on sedation lightening. Chest x-ray shows mild left lower lobe infiltrate. WBC count is slightly improved today from 23.2 t0 21. C Diff negative. UO adequate, creat slightly worsening. 1.57 today 02/22: Remains intubated sedated tolerated CPAP yesterday, plan is for EGD/ Colonscopy. WBC count back to normal. UO adequate. Creat stable 02/23: Tolerating CPAP trials following commands. Will do a spontaneous breathing trials. Status post EGD colonoscopy yesterday -Gastritis, esophagitis. Diverticulosis and multiple polyps. Urine output adequate but creatinine increasing to 1.7 with patient requiring multiple straight catheterization. We'll reinsert Sloan. 02/24: Breathing comfortably 24 hours after extubation. Protects airway well. 02/25: Excoriate bottom, will place rectal FMS. Start pureed diet. 02/26: Afebrile. Complaining of nausea and vomiting this afternoon. Increased stool output. Continue potassium replacement today. 02/27: 10 PM overnight, acutely hypotensive. Received 3 units PRBCs. Antibiotic coverage broadened to piperacillin/tazobactam, cortisol and 1 dose of vancomycin. Oxacillin drip currently on hold. Symptomatically, patient continues to vague abdominal pain/nausea vomiting which is unchanged for the past several days. Lipase elevated yesterday. Lactic acid normal. Troponin normal. Urinary retention after removal of Sloan. Straight catheter 1300. Cc 02/28: New diagnosis large retroperitoneal hematoma. Received 10 PRBC, 14 FFP, 2 platelets, 1 cryo-, 6 g calcium chloride, 2 is magnesium sulfate and 4 mg Bumex. CTA abdomen revealed possible arterial bleeds iliac, lumbar. Patient is currently on norepinephrine and epinephrine drips and possible need right nephrostomy tube placement due to large hematoma compressing ureter. Intra-abdominal bladder pressures are currently 13 03/01: Afebrile. Received 25 g albumin and 1 unit PRBCs overnight. Intra- abdominal bladder pressures currently 19. Currently on 3 micrograms per minute of norepinephrine. [id number] 1 out of 4 on 4 mics grams per kilogram per minute of cisatracurium. 03/02: Slightly hypothermic overnight. Hemoglobin appears to have stabilized. Troponin bump overnight likely secondary to demand ischemia from hypotension. Hemodynamically stable off all vasopressors. 03/03: Received 1 PRBCs overnight. 3 units currently. Off all vasopressors. Likely rebleeding. Stool is dark. 03/04: Remains unstable. Ventilator dependent. 03/05: afebrile. hgb stable. 03/06: bumex drip started overnight. good uop after bumex initiated. still grossly volume overloaded. Cr downtrending. more awake with transition to propofol. still too volume overloaded to tolerate extubation. hgb stable. 03/07: Afebrile. Tolerating tube feeds at goal with Nepro. Positive BM. On low-dose fentanyl and propofol drips. Potassium currently being replaced. 03/08: Eyes will open on ventilator. Afebrile. Tolerating tube feeding. Failed PSV trial yesterday due to apnea. 03/09: Following commands. Tmax 101. Tolerating tube feeding. One hour PSV trial yesterday. Currently tolerating well so far today 1.5 hours 03/10: Low-grade temperatures. Tolerating PSV trial 10 hours yesterday. Currently at 5/5 at 35%. We'll probably attempt extubation a.m. after hemodialysis. 03/11: Extubated currently in 4 L nasal cannula. Thick secretions thick clear with cough. Currently afebrile. Tolerating diet previously. 03/12: Sleepy this morning but arouses. Following commands. Refusing diet at the present time. On 2 L nasal cannula. 03/13: Patient reintubated last night for worsening respiratory status. Currently sedated on mechanical ventilation. Became hypotensive following intubation and is on Levophed 20 mics per minute. 03/14: Sedated, orally intubated on mech vent at the time of my evaluation this AM, subsequently underwent perc trach placement. Remains on levophed for pressor support. Transfused 1 unit PRBCs today. Persisten 03/15: Trach site clean, dry. CXR with bilateral basilar infiltrates. 03/16: Pulmonary congestion persists. Clinical condition not improving. Prognosis becoming increasingly bleak. 03/17: Glucose intolerance worse. No improvement in neurological function. 03/18: Remains on mechanical ventilation via tracheostomy. Off pressors now. Neurologic status remains poor. 03/19: Drowsy, encephalopathic, arousable. On mechanical ventilation via tracheostomy. Levemir increased for hyperglycemia today. Remains off pressors 03/20: More awake, moves both upper extremities. On mechanical ventilation via tracheostomy. Daily C Pap trials ongoing. 03/21: Awake and alert. On mechanical ventilation via tracheostomy. Opens and closes eyes on command. 03/22: Awake and alert. Tolerated T PIECE for 7 hours yesterday. Dialyzed today. 03/23: Currently on T piece trial. Status post dialysis yesterday on 3 L. Awake and alert. Wants to eat. Subjective 03/24: Currently afebrile. Hemodialysis catheter discontinued yesterday from left IJ. Persistent leukocytosis noted. Potassium will be replaced. Furosemide 40 mg twice a day IV to 20 mg IV twice a day 03/25: WBC count unchanged. Patient on T piece with humidified air greater than 48 hours, tolerating it well. Reconsulted 04/12: The patient was transferred emergently from the floor/ [facility]. Patient was initially seen by tmd teacher Dr. Estrada, and the patient was noted to be tachypneic on T piece of 40%. ABGs were performed which showed a PaO2 of 60 on T piece of FiO2 of 40%. Chest x-ray was performed which showed loss of entire left hemidiaphragm dental office assistant consolidation in the left lower lobe. Concern for mucus plugging versus fluid. The patient [place] emerg[place] [facility] [place] on a ventilator CT of the chest is pending. Upon arrival in the room the patient is alert and oriented, mouthing words, nodding head to yes and no questions O2 sat is 100% but patient is currently on mechanical ventilation. Currently in no respiratory distress. 04/13: Tmax 99.8. The patient's oxygen requirements have decreased currently FiO2 35% with a PaO2 1 blood gas of 85, O2 saturation 100%. No respiratory distress noted. Patient underwent CT of the chest yesterday noted pleural effusions left greater than right, diagnostic/and therapeutic CT thoracentesis plan for this a.m.. 04/14: Patient underwent CT-guided thoracentesis of the right side with approximately 600 cc withdrawn. Today tmd teacher Dr. LABOY in and up size indwelling 6.0 Shiley to a 8.0 Shiley. Minimal bleeding noted around the site. X-ray improving. Patient started on CPAP trials today, as well as tube feeds were initiated. 04/15: Placed on T piece this morning via tracheostomy. Appears to be tolerating it. Laying in bed not in any acute distress. 04/16: Awake and alert. Tolerating T piece. Tolerating PEG feeds. Objective Vital Signs Date Time Temp Pulse Resp B/P (MAP) Pulse Ox O2 Delivery O2 Flow Rate FiO2 04/16/17 10:00 102 04/16/17 08:00 99.2 16 100/59 (73) 98 04/16/17 07:43 T-piece 6.00 40 Intake and Output 04/16/17 04/16/17 04/17/17 08:00 16:00 00:00 Intake Total 924 ml Output Total 1000 ml Balance -76 ml Result Diagram: 04/13/17 0737 04/14/17 0604 Other Results Microbiology Date/Time Source Procedure Growth Status 04/13/17 16:30 Fluid Pleural Fluid Gram Stain - Final Complete 04/13/17 16:30 Fluid Pleural Fluid Body Fluid Culture - Final NO GROWTH IN 72 HRS.--AEROBICALLY OR ... Complete Imaging Last Impressions Chest CT 04/12/17 1558 Signed Impressions: Service Date/Time: March 17:51 - CONCLUSION: 1. Slight increase in size of bilateral effusions and basilar atelectasis, left greater than right compared with February 27. Tracheostomy in good position. Trace Holloway MD Chest X-Ray 04/12/17 1248 Signed Impressions: Service Date/Time: March 10:59 - CONCLUSION: New hazy opacity involving most of the left hemithorax suggesting either large pleural effusion or developing infiltrates. Stable left lower lung consolidation. Candido Patton MD Renal Ultrasound 04/02/17 0000 Signed Impressions: Service Date/Time: Sunday, April 02, 2017 16:59 - CONCLUSION: Limited exam with the left kidney being unable to be evaluated in the bladder not distended. There do appear to be multiple shadowing stones at the right kidney without hydronephrosis. Angelo Manzo MD Wrist X-Ray 03/27/17 0000 Signed Impressions: Service Date/Time: Monday, March 27, 2017 13:21 - CONCLUSION: 1. No acute fracture is identified. A portion of the previously documented distal ulna fracture remains visualized. 2. 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 Angelo Allen MD Aortography 02/28/17 0000 Signed Impressions: Service Date/Time: Tuesday, February 28, 2017 08:01 - CONCLUSION: 1. Active hemorrhage from distal right lateral sacral and iliolumbar branches successfully coil and Gelfoam embolized, as above. Juan Bhakta MD Abdomen/Pelvis CT 02/28/17 0000 Signed Impressions: Service Date/Time: Tuesday, February 28, 2017 06:51 - CONCLUSION: 1. The right retroperitoneal hematoma has increased in size, as above. There are 2 serpiginous arterially enhancing structures visualized, one in the right psoas muscle and another extending into the hematoma at the right iliac fossa. These could represent sites of continued active bleeding. 2. Stable moderate size left and small right pleural effusion with associated compressive atelectasis. 3. Stable small volume of free fluid in the abdomen and pelvis. There is also anasarca. The findings concerning the retroperitoneal hematoma were discussed with Dr. Aguiar via telephone at approximately 7: 10 AM on 02/28/2017. Angelo Allen MD Abdomen X-Ray 02/26/17 0000 Signed Impressions: Service Date/Time: Sunday, February 26, 2017 14:52 - CONCLUSION: 1. Nonobstructive bowel gas pattern. Juan Bhakta MD Upper Extremity Ultrasound 02/10/17 0000 Signed Impressions: Service Date/Time: Friday, February 10, 2017 18:46 - CONCLUSION: Occlusive thrombus in the cephalic and basilic veins. Benjamin Person MD Lung Scan- Nuclear Medicine 02/10/17 0000 Signed Impressions: Service Date/Time: Friday, February 10, 2017 22:17 - CONCLUSION: Low probability pulmonary embolism. Candido Patton MD Head CT 02/10/17 0000 Signed Impressions: Service Date/Time: Friday, February 10, 2017 23:51 - CONCLUSION: Negative noncontrast CT brain. Candido Patton MD Lumbar Puncture Fluoroscopy 02/01/17 0000 Signed Impressions: Service Date/Time: January 09:35 - CONCLUSION: Uncomplicated fluoroscopically guided lumbar puncture. CSF was clear. Nabeel Peralta MD Head Magnetic Resonance Angiography 01/27/17 0000 Signed Impressions: Service Date/Time: Friday, January 27, 2017 10:33 - CONCLUSION: No intracranial vascular abnormality is identified. There is no aneurysm visualized. Angelo Allen MD IVC Filter Placement X-Ray 01/25/17 Signed Impressions: Service Date/Time: January 10:29 - CONCLUSION: Uncomplicated inferior vena cava filter placement as above. Yung Fowler MD Thoracic Spine MRI 01/24/17 Signed Impressions: Service Date/Time: Tuesday, January 24, 2017 22:29 - CONCLUSION: 1. Mild degenerative spondylosis most prominently at T11-L1 with slight effacement of the anterior thecal sac and left lateral recess. No significant neural foraminal stenosis. 2. No acute fracture. Juan Bhakta MD Lumbar Spine MRI 01/23/17 Signed Impressions: Service Date/Time: Monday, January 23, 2017 17:01 - CONCLUSION: 1. At L4-5 is a broad-based disc protrusion with severe central canal and lateral recess stenosis and flattening of the exiting right L4 nerve root. 2. L5-S1 there is a disc protrusion and moderate stenosis with flattening of the exiting L5 nerve roots bilaterally. 3. At L3-4 there is a moderate to severe central stenosis and lateral recess stenosis with mild foraminal stenosis. 4. No acute fracture or spondylolisthesis. Trace Holloway MD Lower Extremity Ultrasound 01/23/17 Signed Impressions: Service Date/Time: Monday, January 23, 2017 09:53 - CONCLUSION: Bilateral focal lower extremity DVT involving the posterior tibial veins. Angelo Garrido MD Cervical Spine MRI 01/23/17 Signed Impressions: Service Date/Time: Monday, January 23, 2017 17:01 - CONCLUSION: 1. Multilevel cervical spine degenerative changes as above. 2. Mild degrees of spinal stenosis at C3/C4-C6/C7. No cord compression or cord signal abnormality. 3. Age indeterminate left paracentral/foraminal disc protrusion at C6/C7. 4. Multilevel foraminal stenosis, most severe on the left at C6/C7. Please see individual levels above. 5. No fracture or subluxation of the cervical spine. Angelo Garrido MD Brain MRI 01/23/17 Signed Impressions: Service Date/Time: Monday, January 23, 2017 17:01 - CONCLUSION: 1. No acute stroke or other acute intracranial abnormality demonstrated. 2. Moderate severity chronic white matter changes, nonspecific but most likely related to chronic small vessel disease. 3. Few scattered tiny lacunar infarcts of the brainstem. 4. Given the findings are not entirely specific, clinical evaluation for possible multiple sclerosis recommended. Angelo Garrido MD Knee X-Ray 01/22/172053 Signed Impressions: Service Date/Time: Sunday, January 22, 2017 21:17 - CONCLUSION: 1. Evidence of moderate to large joint effusion. 2. No acute fracture or malalignment. 3. Mild 3 compartment osteoarthritic change. Benjamin Person MD Hip and Pelvis X-Ray 01/22/172053 Signed Impressions: Service Date/Time: Sunday, January 22, 2017 21:10 - CONCLUSION: 1. Mild to moderate degenerative change of both hips with no acute fracture or malalignment. There is flattening and remodeling of the right humeral head. Benjamin Person MD Last Impressions Chest X-Ray 03/14/17 Signed Impressions: Service Date/Time: Tuesday, March 14, 2017 13:41 - CONCLUSION: 1. Tracheostomy in good position. 2. Left lower lung infiltrates and left pleural effusion. Candido Patton MD Aortography 02/28/17 0000 Signed Impressions: Service Date/Time: Tuesday, February 28, 2017 08:01 - CONCLUSION: 1. Active hemorrhage from distal right lateral sacral and iliolumbar branches successfully coil and Gelfoam embolized, as above. Juan Bhakta MD Abdomen/Pelvis CT 02/28/17 0000 Signed Impressions: Service Date/Time: Tuesday, February 28, 2017 06:51 - CONCLUSION: 1. The right retroperitoneal hematoma has increased in size, as above. There are 2 serpiginous arterially enhancing structures visualized, one in the right psoas muscle and another extending into the hematoma at the right iliac fossa. These could represent sites of continued active bleeding. 2. Stable moderate size left and small right pleural effusion with associated compressive atelectasis. 3. Stable small volume of free fluid in the abdomen and pelvis. There is also anasarca. The findings concerning the retroperitoneal hematoma were discussed with Dr. Aguiar via telephone at approximately 7: 10 AM on 02/28/2017. Angelo Allen MD Chest CT 02/27/17 0000 Signed Impressions: Service Date/Time: Monday, February 27, 2017 18:12 - CONCLUSION: 1. Bilateral pleural effusions with bibasilar atelectasis, left greater than right. Tom Sanchez MD Abdomen X-Ray 02/26/17 Signed Impressions: Service Date/Time: Sunday, February 26, 2017 14:52 - CONCLUSION: 1. Nonobstructive bowel gas pattern. Juan Bhakta MD Upper Extremity Ultrasound 02/10/17 Signed Impressions: Service Date/Time: Friday, February 10, 2017 18:46 - CONCLUSION: Occlusive thrombus in the cephalic and basilic veins. Benjamin Person MD Lung Scan- Nuclear Medicine 02/10/17 0000 Signed Impressions: Service Date/Time: Friday, February 10, 2017 22:17 - CONCLUSION: Low probability pulmonary embolism. Candido Patton MD Head CT 02/10/17 0000 Signed Impressions: Service Date/Time: Friday, February 10, 2017 23:51 - CONCLUSION: Negative noncontrast CT brain. Candido Patton MD Wrist X-Ray 02/06/17 0000 Signed Impressions: Service Date/Time: Monday, February 06, 2017 12:50 - CONCLUSION: Minimally displaced distal radius and ulnar fractures. Armando Dodd MD Lumbar Puncture Fluoroscopy 02/01/17 0000 Signed Impressions: Service Date/Time: January 09:35 - CONCLUSION: Uncomplicated fluoroscopically guided lumbar puncture. CSF was clear. Nabeel Peralta MD Head Magnetic Resonance Angiography 01/27/17 0000 Signed Impressions: Service Date/Time: Friday, January 27, 2017 10:33 - CONCLUSION: No intracranial vascular abnormality is identified. There is no aneurysm visualized. Angelo Allen MD IVC Filter Placement X-Ray 01/25/17 0000 Signed Impressions: Service Date/Time: January 10:29 - CONCLUSION: Uncomplicated inferior vena cava filter placement as above. Yung Fowler MD Thoracic Spine MRI 01/24/17 0000 Signed Impressions: Service Date/Time: Tuesday, January 24, 2017 22:29 - CONCLUSION: 1. Mild degenerative spondylosis most prominently at T11-L1 with slight effacement of the anterior thecal sac and left lateral recess. No significant neural foraminal stenosis. 2. No acute fracture. Juan Bhakta MD Renal Ultrasound 01/23/17 Signed Impressions: Service Date/Time: Monday, January 23, 2017 08:53 - CONCLUSION: 1. Evidence of chronic parenchymal disease of both kidneys. No obstructive uropathy or other acute abnormality demonstrated. 2. Trace ascites, nonspecific. Angelo Garrido MD Lumbar Spine MRI 01/23/17 Signed Impressions: Service Date/Time: Monday, January 23, 2017 17:01 - CONCLUSION: 1. At L4-5 is a broad-based disc protrusion with severe central canal and lateral recess stenosis and flattening of the exiting right L4 nerve root. 2. L5-S1 there is a disc protrusion and moderate stenosis with flattening of the exiting L5 nerve roots bilaterally. 3. At L3-4 there is a moderate to severe central stenosis and lateral recess stenosis with mild foraminal stenosis. 4. No acute fracture or spondylolisthesis. Trace Holloway MD Lower Extremity Ultrasound 01/23/17 Signed Impressions: Service Date/Time: Monday, January 23, 2017 09:53 - CONCLUSION: Bilateral focal lower extremity DVT involving the posterior tibial veins. Angelo Garrido MD Cervical Spine MRI 01/23/17 Signed Impressions: Service Date/Time: Monday, January 23, 2017 17:01 - CONCLUSION: 1. Multilevel cervical spine degenerative changes as above. 2. Mild degrees of spinal stenosis at C3/C4-C6/C7. No cord compression or cord signal abnormality. 3. Age indeterminate left paracentral/foraminal disc protrusion at C6/C7. 4. Multilevel foraminal stenosis, most severe on the left at C6/C7. Please see individual levels above. 5. No fracture or subluxation of the cervical spine. Angelo Garrido MD Brain MRI 01/23/17 Signed Impressions: Service Date/Time: Monday, January 23, 2017 17:01 - CONCLUSION: 1. No acute stroke or other acute intracranial abnormality demonstrated. 2. Moderate severity chronic white matter changes, nonspecific but most likely related to chronic small vessel disease. 3. Few scattered tiny lacunar infarcts of the brainstem. 4. Given the findings are not entirely specific, clinical evaluation for possible multiple sclerosis recommended. Angelo Garrido MD Knee X-Ray 01/22/172053 Signed Impressions: Service Date/Time: Sunday, January 22, 2017 21:17 - CONCLUSION: 1. Evidence of moderate to large joint effusion. 2. No acute fracture or malalignment. 3. Mild 3 compartment osteoarthritic change. Benjamin Person MD Hip and Pelvis X-Ray 01/22/172053 Signed Impressions: Service Date/Time: Sunday, January 22, 2017 21:10 - CONCLUSION: 1. Mild to moderate degenerative change of both hips with no acute fracture or malalignment. There is flattening and remodeling of the right humeral head. Benjamin Person MD Objective Remarks BP 114/82 Pulse 82 O2sat 95% on mechanical ventilation settings 12/500/5, FIO2 .35 GENERAL: 62-year-old male, resting in bed, on mechanical ventilation via tracheostomy in no apparent distress nodding head to yes and no questions HEENT: Normocephalic. Atraumatic. Pupils equal, round, reactive. NECK: Tracheostomy in place, around trach site erythematous, yellowish drainage CHEST: On mechanical ventilation tracheostomy, air entry decreased bilaterally . Trach site reddened with noted yellowish-green drainage CARDIOVASCULAR: S1-S2 regular, no gallop or murmur ABDOMEN distended. No rigidity. Umbilical hernia is reducible. No guarding. PEG tube in place : Positive scrotal edema Sloan in situ MUSCULOSKELETAL: Pulses 2+. 1+ bilateral upper and lower extremity edema. NEUROLOGICAL: Awake and alert, has spontaneous eye opening. Opens and closes eyes on command. Moves 4 limbs weakly to stimulation. Procedures 01/25/2017- Retrievable IVC Filter placement 01/26/17-lumbar puncture with fluoroscopy-by interventional radiology 02/01/17- lumbar puncture fluoroscopy by interventional radiology 02/10/17- Endotracheal Intubation 02/10/17-left IJ central venous line placed 02/10/17-left femoral arterial line placed 02/11/17-Diagnostic and therapeutic bronchoscopy with bronchoalveolar lavage 02/11/17-Left upper extremity incision and debridement with excision of septic cephalic vein 02/13/17- Extubated 02/20/17- endotracheal intubation 02/20/17- Left subclavian central line placement 02/20/17-Right radial A-line placement 02/22/17-EGD/colonoscopy 02/28/17-right radial a line 02/28/17- Endotracheal intubation 02/28/17- right sided introducer catheter placement 02/28/17- Right IJ central line placement 02/28/17-Right chest tube placement 02/28/17- Embolization of inferior and superior sacral branches of right internal iliac artery 03/01/17- Hemodialysis access catheter 03/03/17-Right IJ central line placement 03/11/17-Extubated 03/13/17- Endotracheal intubation 03/14/17-Tracheostomy placement, trach downsized to 6.0 Shiley 03/30/17 03/15/17-PEG tube placement 04/11/17-CT Chest 04/13/17-thoracentesis right 600 cc removed Date of Insertion: Feb 20, 2017 Date of Insertion: Mar 03, 2017 Line: Central Venous Catheter Side: Right Location: Internal, Jugular A/P Problem List: (1) Septic shock ICD Code: A41.9 - Sepsis, unspecified organism; R65.21 - Severe sepsis with septic shock Status: Acute (2) Acute respiratory failure ICD Code: J96.00 - Acute respiratory failure, unspecified whether with hypoxia or hypercapnia Status: Acute (3) Thrombophlebitis arm ICD Code: I80.8 - Phlebitis and thrombophlebitis of other sites (4) Aspiration pneumonia ICD Code: J69.0 - Pneumonitis due to inhalation of food and vomit Status: Acute (5) Atelectasis of left lung ICD Code: J98.11 - Atelectasis Status: Acute (6) Quadriparesis ICD Code: G82.50 - Quadriplegia, unspecified Status: Acute (7) DVT (deep venous thrombosis) ICD Code: I82.409 - Acute embolism and thrombosis of unspecified deep veins of unspecified lower extremity (8) Altered mental status ICD Code: R41.82 - Altered mental status, unspecified Status: Acute (9) CKD (chronic kidney disease) stage 3, GFR 30-59 ml/min ICD Code: N18.3 - Chronic kidney disease, stage 3 (moderate) Status: Chronic (10) Acute renal failure ICD Code: N17.9 - Acute kidney failure, unspecified Status: Acute (11) Diabetes mellitus ICD Code: E11.9 - Type 2 diabetes mellitus without complications Status: Chronic (12) Distal end of ulna fracture, closed ICD Code: S52.609A - Unspecified fracture of lower end of unspecified ulna, initial encounter for closed fracture Status: Acute (13) Gout ICD Code: M10.9 - Gout, unspecified Status: Chronic Assessment and Plan Assessment: NEURO/PSYCH: Acute metabolic encephalopathy- persistent Quadriparesis secondary to suspected transverse myelitis Recurrent falls Suspected transverse myelitis. Received methylprednisolone 250 mg IV every 6 hours 01/27-02/02, started back on hydrocortisone 02/21/17, initially tapering to 50 mg IV every 8 hours starting received 1 dose at 2100 prior to becoming hypotensive. weaning hydrocortisone taper and stopped 03/09. Resumed hydrocortisone 50mg IV Q6hrly on 03/14 as patient became hypotensive following intubation on 03/13 requiring levophed. Continue Hydrocortisone 50 mg IV every 6 hours LP 01/26 and 02/01. CSF culture negative 01/26, 02/01 Oligoclonal bands negative. CSF/serum IgG index is not elevated. VDRL nonreactive. Cryptococcal antigen negative. Brain MRI 01/23 no acute stroke. Few scattered lacunar infarcts of the brainstem. Moderate chronic white matter changes. MRI cervical/thoracic spine- mild spinal stenosis C3/C4 to C6/C7. No cord compression. RPR negative Neurology has been following, Dr. Crenshaw. Repeat CT brain 02/10 - negative Continue PT/OT Continue oxycodone 10 mg every 4 hours scheduled Will consider EMG and Nerve Conduction studies- physical medicine and rehabilitation consulted RESP: Acute hypoxemic respiratory failure Healthcare associated pneumonia/Aspiration Pneumonia S/P Right-sided chest tube 02/28 continue mechanical ventilation as needed, vent bundle, PSV and T piece trials as tolerated -On T piece >48 hours. Humidified room air Albuterol/ipratropium aerosols every 6 hours with albuterol aerosols every 2 hours prn VQ scan 02/10 low probability for PE. CT chest 02/10 - left lower lobe collapse and consolidation. CT chest 02/27 revealed right greater than left pleural effusions. Extubated 02/23. Intubated 02/28. Extubated 03/11, Reintubated on 03/13. Right-sided chest tube placement 02/28 support manager, removed 03/05. Failed attempt to wean successfully due to volume overload and multiple organ failure. underwent perc tracheostomy 03/14. CT chest 04/12-slight increase and bilateral effusions left greater than right basilar atelectasis CXR 04/13-moderate pleural effusion left with consolidation of the left lung Pulmonology following Dr. Estrada -Patient has a 6.0 Shiley may also need bronchoscopy to require a larger size trach or intubation. 04/13 CT guided thoracentesis scheduled emergently as discussed with Dr. Estrada - 600cc removed (right) 04/14-tracheostomy up sized to 8.0 Shiley [address] tmd teacher Dr. Estrada at bedside CV: Severe sepsis - resolved. Systolic heart failure likely chronic with ejection fraction 20-25% Hyperlipidemia History of hypertension Mild TR Sinus tachycardia Elevated troponin likely type II demand ischemia Restarted on Levophed on 03/09 for following intubation, titrated off after starting hydrocortisone. Started hydrocortisone stress dose on 03/14 (as patient has been on steroids and was just tapered off on 03/09.) Patient has on hypotensive twice when attempting to wean off stress dose hydrocortisone in the past. Currently on atenolol 25 mg twice a day. Continue amlodipine 5 mg daily As needed Nitropaste, labetalol and hydralazine for hypertension Atorvastatin 10 mg by mouth daily for dyslipidemia. Troponin 0.[address]-T changes. 2-D echocardiogram 01/11 revealed EF 20-25%. Mild TR. Pulmonary arterial pressures were normal around 20 Troponin 6.55 on 03/02. Currently on furosemide 20 mg IV twice a day per nephrology GI: Large right retroperitoneal hematoma Erosive esophagitis Adematous/hyperplastic colon polyps Severe acute protein calorie malnutrition Nausea/vomiting - resolved. Diarrhea Gastritis Diverticulosis Internal and external hemorrhoids Hiatal hernia Elevated lipase 02/27 CT chest/abdomen and pelvis - 9.4 x 7.5 renal and 16 x 12 cm right psoas muscle hematoma. Fluid around liver and spleen. Right-sided nephrolithiasis CTA abdomen 02/28 - possible blushing around iliac/lumbar vessels Discussed with IR. s/p attempted embolization CT abdomen and pelvis 02/10 atrophic left kidney. Bilateral inguinal hernias fat- containing. Nonobstructing 12 mm right kidney stone repeat CT abd/pelvis did not show evidence of obstruction. patient clinically has been having diarrhea (c. diff negative 02/19). also with nausea/vomiting of unclear etiology. EGD/Colonoscopy-02/22/17 showed gastritis esophagitis, hiatal hernia, diverticulosis and multiple polyps in descending colon and sigmoid which were snared biopsied. Biopsy pending Dr. Lewis consulted for intervention if needed for elevated IAP. will continue to check as needed Status post PEG tube placement by consulted Previously on 1800-calorie ADA diet to this readmission to ICU, consult dietary for tube feeds Lansoprazole 30 mg twice a day for GI prophylaxis FEN/RENAL: Acute kidney injury in the setting of Chronic kidney disease stage 3-4 History of uric acid kidney stones with prior stent BPH Nonfunctioning left kidney Acute intravascular volume overload Hypokalemia Sloan placed due to urinary retention and worsening creatinine Maintain Sloan secondary to urinary retention Monitor intake and output q1hr. Monitor electrolytes. RIOS/SPEP negative. 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 Recommended nephrostomy tube if obstruction Nephrology consulted, hemodialysis per nephrology. Making urine. Due to acute illness holding tamsulosin 0.4 mg by mouth daily for BPH ICU electrolyte replacement protocol Last IHD was 03/22 ID: Septic shock- resolved. Abscess and Suppurative thrombophlebitis left upper extremity MSSA bacteremia Klebsiella UTI ESBL positive Acute aspiration pneumonia/HCAP Previously treated with Bactrim, ertapenem, intermittent vancomycin, nafcillin Blood cultures 2, UA ESBL positive Klebsiella UTI Sputum 03/14 - Pseudomonas came back resistant to imipenem, Stenotrophomonas maltophilia Repeat blood cultures 2 and sputum 03/08 pending. Urine negative. Antibiotics per ID ID following-Dr. Puente HEME: Acute blood loss anemia DVT, bilateral posterior tibial vein, IVC filter Septic thrombophlebitis with occlusive thrombus mid cephalic and basilic vein side Received 10 PRBC, 14 FFP, 2 platelets, 1 cryo-02/28 Received 3 units PRBCs Serial hemoglobins every 6 hours Recheck coags Ultrasound 01/23/17 - Bilateral lower extremity with occlusive posterior tibial vein DVTs. Heparin was initially started for DVT but was placed on hold due to LP with suspected traumatic tap. Currently holding full anticoagulation with enoxaparin 100 mg IV twice a day due to anemia as of 02/26 IVC filter was placed 01/25/17. Ultrasound LUE 02/10 occlusive thrombus mid cephalic vein, basilic vein.s. Transfuse 3 units PRBCs 02/27 Transfuse 2 units PRBCs 03/01. Transfused 1 unit PRBCs on 03/14 ENDO: Diabetes mellitus Hypoglycemia History of prior adrenal insufficiency with shock Gout EGD colonoscopy completed 02/22. gastritis and esophagitis, colon polyps Started Hydrocortisone 100 mg every 8 hours 02/21/17 (Recent high dose steroids use now hypotensive, hypoglycemic), steroids had been tapered off. Resumed stress dose steroids on 03/16 as patient back on Levophed for pressor support after intubation. Continue at 50 mg IV every 6 hours Accu-Cheks to maintain euglycemia Novulin R every 4 hours. Low Regimen Currently on insulin detemir 25 units twice a day for hyperglycemia MSK: Right distal ulna fracture. Recommended nonoperative management. PROPH: Lansoprazole 30 mg twice a day twice a day for stress ulcer prophylaxis. Has IVC filter. Therapeutic enoxaparin was placed on hold for retroperitoneal hematoma ACCESS: right IJ CVL placed 03/03-03/20. A left IJ hemodialysis catheter placed 03/01 - 03/23. Left femoral A line placed 03/14 - discontinued 03/19 Dispo: Discussed with HOOD MAKER at bedside Problem Qualifiers (1) Aspiration pneumonia: (2) DVT (deep venous thrombosis): Qualified Codes: I82.443 - Acute embolism and thrombosis of tibial vein, bilateral (3) Acute renal failure: Qualified Codes: N17.9 - Acute kidney failure, unspecified (4) Diabetes mellitus: (5) Gout: Devin Puente MD Apr 16, 2017 12:35
--- NOTE | 2017-04-16 17:05 | HHI.HCPN ---
Reason for visit a. To assist with evaluation and management of symptoms including: shortness of breath, pain, debility b. To assist medical decision maker(s) with: better understanding of current medical conditions; weighing benefits/burdens of medical treatment options; making medical treatment decisions. Subjective/Interval History Patient seen in [facility]. Patient underwent CT-guided thoracentesis on the right side and approximately 600 mL's withdrawn on 04/13/17. Indwelling Shiley catheter up-sized by rock drill operator Dr. Estrada from # 6 to # 8 Lisa. Patient currently on T piece, FiO2 40% and tolerating it well. O2 saturation high 90s. Per nursing staff, patient has copious secretions via tracheostomy. Tmax of 101.5 today. SBP lower 80s to 100. Patient awake, alert and trying to communicate by mouthing words and shaking head for "no" and nodding head for "yes". Patient denies pain at this time. No signs of pain noted. Patient does not remember her sister being in to see him. Patient`s sister stated that she had been in earlier on to visit with patient. No recent laboratory workup. Blood cultures sent today. Pleural fluid culture obtained from thoracentesis on 04/13/17 showing no growth. ID following. PT following. Case Management following. Telephone conversation with patient's sister Deb, patient's sister who is hopeful for patient`s recovery. Family/friend interactions Telephone conversation with patient`s sister. . Advance Directives Living Will: Never completed Health Care Surrogate: Never completed Durable Power of Sales Service Executive: Never completed Advance Directive Specifics Health Care Surrogate(s): Healthcare proxys- Son-Davie Kerr - ; Son-Arnel Kerr- -cell -home Telephone call to Davie Kerr, patient`s son with no response. Telephone conversation with patient`s son Arnel Kerr via telephone- called home telephone. Updated him on patient`s medical status. Discussed his role as patient`s health care proxy and he states that since Davie lives here closer to patient he is alright with Davie making medical decisions for their father and that he trusts that Davie will make the right decisions. When asked if he wanted to opt out of medical decision making, he stated that he may have to do that and allow Davie to make medical decisions and hopes that Davie will keep him informed. Explained to Arnel that his father is critically ill. Discussed code status, and explained to him that Davie wanted patient to be a full code. Again, Arnel stated that he trusts whatever decision his brother has and is making for their father. Telephone conversation with Deb patient` s sister, Updated her on patient`s current medical status and planned procedures. . Documented care wishes: No known documented care wishes have been completed. . Objective Vital Signs Date Time Temp Pulse Resp B/P (MAP) Pulse Ox O2 Delivery O2 Flow Rate FiO2 04/16/17 14:00 88 04/16/17 12:56 22 04/16/17 12:00 92 04/16/17 12:00 99.0 92 18 95/59 (71) 98 04/16/17 10:00 102 04/16/17 08:00 99.2 90 16 100/59 (73) 98 04/16/17 08:00 90 04/16/17 07:43 97 T-piece 6.00 40 04/16/17 07:00 98 T-Piece 40 04/16/17 06:00 89 04/16/17 04:00 85 04/16/17 04:00 99.9 82 14 88/61 (70) 96 04/16/17 02:00 78 04/16/17 00:00 86 04/16/17 00:00 101.5 86 18 100/66 (77) 100 04/15/17 22:00 91 04/15/17 20:24 99 T-piece 40 04/15/17 20:00 100.5 86 18 84/54 (64) 98 04/15/17 20:00 86 04/15/17 19:00 100 T-Piece 40 04/15/17 18:00 91 Intake & Output 04/16/17 04/16/17 07:00 19:00 Intake Total 924 ml Output Total 1000 ml Balance -76 ml IV Total 400 ml Tube Feeding 114 ml Other 410 ml Output Urine Total 950 ml Stool Total 50 ml Physical Exam CONSTITUTIONAL/GENERAL: This is an ill-looking patient, in no acute distress or discomfort, awake and yelling for someone. TUBES/LINES/DRAINS: PEG tube, #8Tracheostomy on T Bruce, PIVs, FC SKIN: No jaundice. Ecchymoses on upper extremities. Sacral pressure wound and L heel pressure injury per EMR. Wound to anterior neck - tracheostomy insertion area with a foam dressing. Not diaphoretic. HEAD: Atraumatic. Normocephalic. EYES: Pupils equal and round, slight reaction.No scleral icterus. No injection or drainage. Fundi not examined. ENT: Trached. Nose without bleeding or purulent drainage. Moist oral mucosa. NECK: Trachea midline. #8 Tracheostomy midline- currently on TPierce 40% - tracheostomy insertion area with a foam dressing. CARDIOVASCULAR: Regular rate and rhythm without murmurs, gallops, or rubs. No JVD. RESPIRATORY/CHEST: Symmetrical, rhonchi to auscultation. Small amount of yellowish colored secretions around trach . Breath sounds equal bilaterally. Patient is on TPierce 40% GASTROINTESTINAL: Abdomen soft, non-tender, nondistended. No guarding. Bowel sounds present. Nepro-Goal infusing at 55ml/hr- Tolerating. Liquid stool GENITOURINARY: Without palpable bladder distension. Sloan catheter in with clear urine. MUSCULOSKELETAL: Gout tophi to fingers, knees, elbows and both ankles. No edema to BUE, trace edema to BLE NEUROLOGICAL: Trached. Patient awake, alert. Followed command with all 4 extremities. PSYCHIATRIC: No obvious anxiety/depression. no apparent hallucinations or other psychotic thought process. . Diagnostic Tests Laboratory Laboratory Tests Test 04/14/17 06:04 Blood Urea Nitrogen 77 MG/DL (7-18) Creatinine 1.73 MG/DL (0.60-1.30) Random Glucose 119 MG/DL (74-106) Calcium Level 8.7 MG/DL (8.5-10.1) Phosphorus Level 2.9 MG/DL (2.5-4.9) Magnesium Level 1.5 MG/DL (1.5-2.5) Sodium Level 145 MEQ/L (136-145) Potassium Level 4.2 MEQ/L (3.5-5.1) Chloride Level 109 MEQ/L (98-107) Carbon Dioxide Level 23.4 MEQ/L (21.0-32.0) Anion Gap 13 MEQ/L (5-15) Estimat Glomerular Filtration Rate 40 ML/MIN (>89) Vitamin B12 Level 582 PG/ML (193-986) Folate 19.6 NG/ML (3.1-17.5) Result Diagram: 04/13/17 0737 04/14/17 0604 Microbiology Microbiology Date/Time Source Procedure Growth Status 04/16/17 12:10 Blood Peripheral Aerobic Blood Culture Pending Received 04/16/17 12:10 Blood Peripheral Anaerobic Blood Culture Pending Received 04/16/17 12:05 Blood Peripheral Aerobic Blood Culture Pending Received 04/16/17 12:05 Blood Peripheral Anaerobic Blood Culture Pending Received Imaging Last 72 hours Impressions Chest X-Ray 04/14/17 0600 Signed Impressions: Service Date/Time: Friday, April 14, 2017 02:33 - CONCLUSION: 1. Interval placement of left-sided chest tube with improvement in aeration and opacity in the left lung. 2. Mild hazy residual left lung greatest at the lung base. Benjamin Person MD Procedures 01/25/2017- Retrievable IVC Filter placement 01/26/17-lumbar puncture with fluoroscopy-by interventional radiology 02/01/17- lumbar puncture fluoroscopy by interventional radiology 02/10/17- Endotracheal Intubation 02/10/17-left IJ central venous line placed 02/10/17-left femoral arterial line placed 02/11/17-Diagnostic and therapeutic bronchoscopy with bronchoalveolar lavage 02/11/17-Left upper extremity incision and debridement with excision of septic cephalic vein 02/13/17- Extubated 02/20/17- endotracheal intubation 02/20/17- Left subclavian central line placement 02/20/17-Right radial A-line placement 02/22/17-EGD/colonoscopy 02/28/17-right radial a line 02/28/17- Endotracheal intubation 02/28/17- right sided introducer catheter placement 02/28/17- Right IJ central line placement 02/28/17-Right chest tube placement 02/28/17- Embolization of inferior and superior sacral branches of right internal iliac artery 03/01/17- Hemodialysis access catheter 03/03/17-Right IJ central line placement 03/11/17-Extubated 03/13/17- Endotracheal intubation 03/14/17-Tracheostomy placement 03/15/17-PEG tube placement 04/13/17-thoracentesis right 600 cc removed 04/13/17-Tracheostomy up-sized to #8 Anni . Assessment and Plan Disease Oriented Problem List: (1) Acute respiratory failure (2) Septic shock (3) Aspiration pneumonia (4) Acute renal failure (5) CKD (chronic kidney disease) stage 3, GFR 30-59 ml/min (6) Cardiomyopathy (7) DVT of lower extremity, bilateral (8) Thrombophlebitis arm (9) Diabetes mellitus (10) Gout (11) HTN (hypertension) (12) Hyperlipidemia Symptom Scale: (1) Shortness of breath 0-10 Scale: Unable to quantify Comment: Trach downsized to #6. Patient back on ventilator. . (2) Debility 0-10 Scale: Unable to quantify Comment: Progressive. . (3) Pain 0-10 Scale: Unable to quantify Comment: History of falls, gout, arthritis, and currently bedbound. . Pertinent Non-Medical Issues Psychosocial:Patient was born and raised in [place], [place]. Patient was once for 20 years, now and has 2 adult sons. 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 He recently resigned due to failing health. Spiritual: No caodaism affiliation Legal: Per [place] statutes, in the absence of written advanced directives healthcare proxy decision making falls to the patient's 2 adult children. Patient's son (Davie) lives locally and wishes to participate in the role of the healthcare proxy decision maker. Palliative care has attempted to contact Arnel, has not call back. Patient`s sister Deb and patients brother verbalized that they have been updating Arnel on patient`s medical status. Ethical issues impacting care: No known ethical issues impacting care at this time. . Important Contacts Son-Davie Kerr - Son-Arnel Kerr- -cell -home Sister-Deb Patricio . Prognosis Mr Kerr is a 62 years old male with a past medical history of hypertension, asthma, diabetes, hyperlipidemia, chronic kidney disease and gout. Patient presented to the ED on 01/22/17 complaining of bilateral knee and right arm pain after a mechanical fall 4 or 5 days prior to coming to the ER. Clinical course complicated with increased weakness leading to numerous diagnostic work ups for possible transverse myelitis, DVTs, retroperitoneal hematoma, aspiration pneumonia, intubation x 4 times, septic and hemorrhagic shock requiring support with pressors and multiple pRBC, FFP transfusions as well as platelets and cryo , renal failure requiring hemodialysis and sacral wound Given ongoing comorbidities, and prolonged hospitalization, patient remains at risk for further complications, deterioration and decline. Code Status: Full Code Plan PLAN: Legal decision maker: Patient is currently trached on TPierce and is not able to make any medical decisions for himself at this time. Patient has 2 adult sons Davie Kerr and Arnel Kerr. According to [place] Statute, his two aforementioned sons will serve as his health care proxys. Patient`s son Davie is acting in the role of HCP decision maker independently at this time given that he is the one who is reasonably available for consultation. Goals: 04/16/17- Remain Aggressive. SSI pending-Case management following case. CODE STATUS: Full Code SYMPTOMS: * Shortness of breath: Multifactorial. Patient has had aspiration pneumonia. Patient has been intubated 4 times this hospitalization. Patient has a tracheostomy. On duonebs. Patient is also on Hydrocortisone 50mg q 6 hours. Chin Strap Maker following. Trach up-sized to #8. Now on Tpierce 40%- s/p CT guided thoracentesis, 600ml removed. Tobramycin nebs ordered. * Pain: Patient presented initially complaining of pain to right wrist and bilateral knees after a mechanical fall. Patient has a history of gout, arthritis, multiple falls and is currently bedbound. Patient on Oxycodone 5mg q 4 hours ATC. Patient also on Hydrocortisone. Denies pain. * Debility: Progressive. Patient has had decline in his health for the past 4 months, including progressively increased weakness and difficulty ambulating and prolonged hospitalization with multiple setbacks. Patient remains at high risk for further physical deconditioning and debility. PT and OT following with patient. PT and OT following. Patient will benefit from getting OOB to a stretcher chair . PT and OT following. Palliative care will continue to follow the patient during hospital course as condition evolves, to assist patient/decision-maker with understanding of their medical conditions, weighing benefits/burdens of treatment options, for clarification of goals of treatment. Additionally will assist with any symptoms of palliative concern. . Aftab Cartwright Apr 16, 2017 17:05
--- NOTE | 2017-04-16 18:06 | HHI.PR ---
Subjective Remarks on trach collar no new issues Objective Vital Signs Date Time Temp Pulse Resp B/P (MAP) Pulse Ox O2 Delivery O2 Flow Rate FiO2 04/16/17 14:00 88 04/16/17 12:56 22 04/16/17 12:00 92 04/16/17 12:00 99.0 92 18 95/59 (71) 98 04/16/17 10:00 102 04/16/17 08:00 99.2 90 16 100/59 (73) 98 04/16/17 08:00 90 04/16/17 07:43 97 T-piece 6.00 40 04/16/17 07:00 98 T-Piece 40 04/16/17 06:00 89 04/16/17 04:00 85 04/16/17 04:00 99.9 82 14 88/61 (70) 96 04/16/17 02:00 78 04/16/17 00:00 86 04/16/17 00:00 101.5 86 18 100/66 (77) 100 04/15/17 22:00 91 04/15/17 20:24 99 T-piece 40 04/15/17 20:00 100.5 86 18 84/54 (64) 98 04/15/17 20:00 86 04/15/17 19:00 100 T-Piece 40 I/O 04/15/17 04/15/17 04/15/17 04/16/17 04/16/17 04/16/17 07:00 15:00 23:00 07:00 15:00 23:00 Intake Total 1038 ml 1187 ml 924 ml Output Total 1850 ml 1500 ml 1000 ml Balance -812 ml -313 ml -76 ml IV Total 400 ml 500 ml 400 ml Tube Feeding 107 ml 114 ml Tube Irrigant 118 ml 580 ml Other 520 ml 410 ml Output Urine Total 1700 ml 1250 ml 950 ml Stool Total 150 ml 250 ml 50 ml Result Diagram: 04/13/17 0737 04/14/17 0604 Objective Remarks GA: nad trach in place, less purulant secretions around trach lungs: clear Heart: s1, S2 Abd: soft Neuro : no Change, awake followed simple commands Ext: no edema, no cyanosis Assessment and Plan Assessment and Plan 1: S/p Trach 2. s/p severe sepsis 3. Severe Deconditioning 4. Large Exudative Pleural effusion s/p drainage 5. Hypotension better 6. VDRF.. I will cont current tx plan trach collar i will not downsize his trach anytime soon cont broad spectrum abx TF GI/DVT prevention ok to leave icu in my opinion . Rishabh Estrada MD Apr 16, 2017 18:06
[2017-04-16] MEDS: ATORVASTATIN 10 MG TAB PO SCH (21:13)
[2017-04-17] VITALS (14 sets, daily range): BP systolic 84–116; BP diastolic 56–73; PULSE 86–98; RESP 13–24; TEMP 98.1–99; O2SAT 96–100
[2017-04-17] MEDS: CEFTOLOZANE-TAZOBACTAM INJ 1,500 MG in SODIUM CHLORIDE 0.9% INJ 100 ML IV SCH ×3 (01:12→13:31)
[2017-04-17] MEDS: oxyCODONE HCL ORAL CONC 5 MG/0.25 ML SYRINGE PO SCH ×6 (01:35→22:03)
[2017-04-17] MEDS: ALPRAZolam 0.25 MG TAB PO PRN ×2 (01:35→13:31)
[2017-04-17] MEDS: CHOLESTYRAMINE 4 GM PACKET G-TUBE SCH ×3 (03:04→19:10)
--- NOTE | 2017-04-17 05:26 | RADRPT ---
EXAM DATE/TIME: 04/17/2017 03:40 [facility] COMPARISON: CHEST SINGLE AP, April 14, 2017, 2:33. INDICATIONS : Shortness of breath. MEDICAL HISTORY : Hypertension. Renal calculi. Arthritis. Apnea. Dyspnea. Renal disease. SURGICAL HISTORY : Bilateral uretheral stents, tracheostomy ENCOUNTER: Subsequent ACUITY: 2 months PAIN SCORE: 0/10 LOCATION: Bilateral chest FINDINGS: The heart size is normal. There is vague increased density at the left base with blunting of the left costophrenic angle. The right costophrenic angle is clear. The right lung is grossly clear. The carlton ent has a tracheostomy tube in place. There is degenerative change of the left glenohumeral joint. CONCLUSION: Mild left effusion and possible accompanying atelectasis or consolidation at the left base Angelo Manzo MD on April 17, 2017 at 5:23 Board Certified Radiologist. This report was verified electronically.
[2017-04-17 05:36] LABS: HEMATOCRIT 28.3 % (39.0-51.0); MEAN CELL VOLUME 85.8 FL (80.0-100.0); MEAN CORPUSCULAR HEMOGLOBIN 27.6 PG (27.0-34.0); MEAN CORPUSCULAR HGB CONC 32.2 % (32.0-36.0); PLATELET COUNT 304 TH/MM3 (150-450); RED CELL DISTRIBUTION WIDTH 16.8 % (11.6-17.2); REVIEW FLAG FINAL; WHITE BLOOD COUNT 14.4 TH/MM3 (4.0-11.0)
[2017-04-17] MEDS: FREE WATER G-TUBE SCH ×4 (06:00→18:00)
[2017-04-17] MEDS: metroNIDAZOLE 500 MG TAB PO SCH ×2 (06:04→13:31)
[2017-04-17] MEDS: HYDROCORTISONE 10 MG TAB PO SCH ×2 (06:04→18:24)
[2017-04-17] MEDS: CHLORHEXIDINE 0.12% (ORAL KIT) 15 ML CUP MT SCH ×2 (08:00→19:09)
[2017-04-17] MEDS: INSULIN ASPART SUPPLEMENTAL SCALE SQ SCH ×4 (08:00→21:00)
[2017-04-17] MEDS: RESP: TOBRAMYCIN SULFATE 80 MG/2 ML NEB NEB SCH ×2 (08:24→19:59)
[2017-04-17] MEDS: LACTOBACILLUS ACIDOPHILUS TAB PO SCH ×3 (08:46→18:24)
[2017-04-17] MEDS: ATENOLOL 25 MG TAB PO SCH ×2 (08:46→21:00)
[2017-04-17] MEDS: FUROSEMIDE 40 MG/4 ML VIAL IV PUSH SCH ×2 (08:46→18:24)
[2017-04-17] MEDS: POTASSIUM CHLORIDE 25 MEQ EFFERVESCENT TAB PO SCH ×2 (08:46→20:59)
[2017-04-17] MEDS: QUEtiapine FUMARATE 25 MG TAB PO SCH (08:46)
[2017-04-17] MEDS: TAMSULOSIN HCL 0.4 MG CAP PO SCH ×2 (08:46→20:58)
[2017-04-17] MEDS: INSULIN DETEMIR 100 UNITS/ML VIAL SQ SCH ×2 (08:47→21:00)
[2017-04-17] MEDS: LANSOPRAZOLE SOLUTAB 30 MG TAB NG SCH ×2 (08:47→20:58)
[2017-04-17] MEDS: COLLAGENASE OINT 30 GM TUBE TOPICAL SCH (08:47)
[2017-04-17] MEDS: SODIUM CHLORIDE 0.9% FLUSH 10 ML FLUSH IV FLUSH SCH ×3 (08:48→20:58)
--- NOTE | 2017-04-17 12:37 | HHI.HCPN ---
Reason for visit a. To assist with evaluation and management of symptoms including: shortness of breath, pain, debility b. To assist medical decision maker(s) with: better understanding of current medical conditions; weighing benefits/burdens of medical treatment options; making medical treatment decisions. Subjective/Interval History Patient seen in his room, in bed. Patient remains on TPierce 40%. Patient is alert, communicating by mouthing words. Patient denies pain. Patient requesting to be assisted out of bed. Explained to patient that physical therapy will work with him, and currently he is weak to get OOB by himself. Patient mouthing, "i can walk, help me get up". Physical therapy reconsultated and Speech therapy was also consulted today. Laboratory workup today revealing WBC 14.4, hemoglobin 9.1, hematocrit 28.3, platelet count 304, sodium 140, potassium 4.2, BUN/creatinine 77/1.73, magnesium 1.5, phosphorus 2.9. Chest x-ray revealing mild left effusion and possible accompanying atelectasis or consolidation at the left base. Case discussed with bedside ROHINI Maldonado and case coordinator Mili. Notified RN that patient was on a specialty bed prior to transferring [place] [facility], due to sacral decubitus. Wound care was also following patient prior to transfer to [facility]. Telephone conversation with patient's sister Deb, patient's sister.Updated on medical status. Family/friend interactions Telephone conversation with patient`s sister, updated on medical status. Notified that physical therapy zeinab be working with patient again and speech therapy was consulted. . Advance Directives Living Will: Never completed Health Care Surrogate: Never completed Durable Power of Fabricator Artificial Breast: Never completed Advance Directive Specifics Health Care Surrogate(s): Healthcare proxys- Son-Davie Kerr - ; Son-Arnel Kerr- -cell -home Telephone call to Davie Kerr, patient`s son with no response. Telephone conversation with patient`s son Arnel Kerr via telephone- called home telephone. Updated him on patient`s medical status. Discussed his role as patient`s health care proxy and he states that since Davie lives here closer to patient he is alright with Davie making medical decisions for their father and that he trusts that Davie will make the right decisions. When asked if he wanted to opt out of medical decision making, he stated that he may have to do that and allow Davie to make medical decisions and hopes that Davie will keep him informed. Explained to Arnel that his father is critically ill. Discussed code status, and explained to him that Davie wanted patient to be a full code. Again, Arnel stated that he trusts whatever decision his brother has and is making for their father. Telephone conversation with Deb patient` s sister, Updated her on patient`s current medical status and planned procedures. . Documented care wishes: No known documented care wishes have been completed. . Objective Vital Signs Date Time Temp Pulse Resp B/P (MAP) Pulse Ox O2 Delivery O2 Flow Rate FiO2 04/17/17 12:00 99.0 90 22 101/62 (75) 99 04/17/17 12:00 90 04/17/17 10:00 89 04/17/17 08:24 98 T-piece 6.00 40 04/17/17 08:00 98.6 87 20 96/58 (71) 96 04/17/17 08:00 87 04/17/17 07:00 95 T-Piece 40 04/17/17 06:00 92 04/17/17 04:00 98.5 94 13 116/63 (80) 96 04/17/17 04:00 94 04/17/17 02:00 94 04/17/17 00:15 99 T-piece 7.00 40 04/17/17 00:00 93 04/17/17 00:00 98.3 93 24 84/56 (65) 100 04/16/17 22:00 100 04/16/17 21:28 97 T-piece 04/16/17 20:01 98.2 87 23 100/59 (73) 95 04/16/17 20:00 88 04/16/17 19:00 95 T-Piece 40 04/16/17 18:00 89 04/16/17 16:00 90 04/16/17 16:00 99.2 90 20 94/58 (70) 100 04/16/17 14:00 88 04/16/17 12:56 22 Intake & Output 04/17/17 04/17/17 07:00 19:00 Intake Total 728 ml Output Total 1700 ml Balance -972 ml Tube Feeding 128 ml Other 600 ml Output Urine Total 1700 ml Physical Exam CONSTITUTIONAL/GENERAL: This is an ill-looking patient, in no acute distress or discomfort, awake and yelling for someone. TUBES/LINES/DRAINS: PEG tube, #8Tracheostomy on T Bruce, PIVs, FC SKIN: No jaundice. Ecchymoses on upper extremities. Sacral pressure wound and L heel pressure injury per EMR. Wound to anterior neck - tracheostomy insertion area with a foam dressing. Not diaphoretic. HEAD: Atraumatic. Normocephalic. EYES: Pupils equal and round, slight reaction.No scleral icterus. No injection or drainage. Fundi not examined. ENT: Trached. Nose without bleeding or purulent drainage. Moist oral mucosa. NECK: Trachea midline. #8 Tracheostomy midline- currently on TPierce 40% - tracheostomy insertion area with a foam dressing. CARDIOVASCULAR: Regular rate and rhythm without murmurs, gallops, or rubs. No JVD. RESPIRATORY/CHEST: Symmetrical, rhonchi to auscultation. Small amount of yellowish colored secretions around trach . Breath sounds equal bilaterally. Patient is on TPierce 40% GASTROINTESTINAL: Abdomen soft, non-tender, nondistended. No guarding. Bowel sounds present. TF Nepro infusing @ 30ml/hr via PEG. Liquid stool GENITOURINARY: Without palpable bladder distension. Sloan catheter in with clear urine. MUSCULOSKELETAL: Gout tophi to fingers, knees, elbows and both ankles. No edema to BUE, trace edema to BLE NEUROLOGICAL: Trached. Patient awake, alert. Followed command with all 4 extremities. PSYCHIATRIC: No obvious anxiety/depression. no apparent hallucinations or other psychotic thought process. . Diagnostic Tests Laboratory Laboratory Tests Test 04/17/17 05:10 White Blood Count 14.4 TH/MM3 (4.0-11.0) Red Blood Count 3.30 MIL/MM3 (4.50-5.90) Hemoglobin 9.1 GM/DL (13.0-17.0) Hematocrit 28.3 % (39.0-51.0) Mean Corpuscular Volume 85.8 FL (80.0-100.0) Mean Corpuscular Hemoglobin 27.6 PG (27.0-34.0) Mean Corpuscular Hemoglobin Concent 32.2 % (32.0-36.0) Red Cell Distribution Width 16.8 % (11.6-17.2) Platelet Count 304 TH/MM3 (150-450) Mean Platelet Volume 8.5 FL (7.0-11.0) Result Diagram: 04/17/17 0510 04/14/17 0604 Microbiology Microbiology Date/Time Source Procedure Growth Status 04/16/17 12:10 Blood Peripheral Aerobic Blood Culture - Preliminary NO GROWTH IN 1 DAY Resulted 04/16/17 12:10 Blood Peripheral Anaerobic Blood Culture - Preliminary NO GROWTH IN 1 DAY Resulted 04/16/17 12:05 Blood Peripheral Aerobic Blood Culture - Preliminary NO GROWTH IN 1 DAY Resulted 04/16/17 12:05 Blood Peripheral Anaerobic Blood Culture - Preliminary NO GROWTH IN 1 DAY Resulted Procedures 01/25/2017- Retrievable IVC Filter placement 01/26/17-lumbar puncture with fluoroscopy-by interventional radiology 02/01/17- lumbar puncture fluoroscopy by interventional radiology 02/10/17- Endotracheal Intubation 02/10/17-left IJ central venous line placed 02/10/17-left femoral arterial line placed 02/11/17-Diagnostic and therapeutic bronchoscopy with bronchoalveolar lavage 02/11/17-Left upper extremity incision and debridement with excision of septic cephalic vein 02/13/17- Extubated 02/20/17- endotracheal intubation 02/20/17- Left subclavian central line placement 02/20/17-Right radial A-line placement 02/22/17-EGD/colonoscopy 02/28/17-right radial a line 02/28/17- Endotracheal intubation 02/28/17- right sided introducer catheter placement 02/28/17- Right IJ central line placement 02/28/17-Right chest tube placement 02/28/17- Embolization of inferior and superior sacral branches of right internal iliac artery 03/01/17- Hemodialysis access catheter 03/03/17-Right IJ central line placement 03/11/17-Extubated 03/13/17- Endotracheal intubation 03/14/17-Tracheostomy placement 03/15/17-PEG tube placement 04/13/17-thoracentesis right 600 cc removed 04/13/17-Tracheostomy up-sized to #8 Michelleley . Assessment and Plan Disease Oriented Problem List: (1) Acute respiratory failure (2) Septic shock (3) Aspiration pneumonia (4) Acute renal failure (5) CKD (chronic kidney disease) stage 3, GFR 30-59 ml/min (6) Cardiomyopathy (7) DVT of lower extremity, bilateral (8) Thrombophlebitis arm (9) Diabetes mellitus (10) Gout (11) HTN (hypertension) (12) Hyperlipidemia Symptom Scale: (1) Shortness of breath 0-10 Scale: Unable to quantify Comment: Trach downsized to #6. Patient back on ventilator. . (2) Debility 0-10 Scale: Unable to quantify Comment: Progressive. . (3) Pain 0-10 Scale: Unable to quantify Comment: History of falls, gout, arthritis, and currently bedbound. . Pertinent Non-Medical Issues Psychosocial:Patient was born and raised in [place], [place]. Patient was once for 20 years, now and has 2 adult sons. 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 He recently resigned due to failing health. Spiritual: No voodoo affiliation Legal: Per [place] statutes, in the absence of written advanced directives healthcare proxy decision making falls to the patient's 2 adult children. Patient's son (Davie) lives locally and wishes to participate in the role of the healthcare proxy decision maker. Palliative care has attempted to contact Arnel, has not call back. Patient`s sister Deb and patients brother verbalized that they have been updating Arnel on patient`s medical status. Ethical issues impacting care: No known ethical issues impacting care at this time. . Important Contacts Son-Davie Kerr - Son-Arnel Kerr- -cell -home Sister-Deb Patricio . Prognosis Mr Kerr is a 62 years old male with a past medical history of hypertension, asthma, diabetes, hyperlipidemia, chronic kidney disease and gout. Patient presented to the ED on 01/22/17 complaining of bilateral knee and right arm pain after a mechanical fall 4 or 5 days prior to coming to the ER. Clinical course complicated with increased weakness leading to numerous diagnostic work ups for possible transverse myelitis, DVTs, retroperitoneal hematoma, aspiration pneumonia, intubation x 4 times, septic and hemorrhagic shock requiring support with pressors and multiple pRBC, FFP transfusions as well as platelets and cryo , renal failure requiring hemodialysis and sacral wound Given ongoing comorbidities, and prolonged hospitalization, patient remains at risk for further complications, deterioration and decline. Code Status: Full Code Plan PLAN: Legal decision maker: Patient is currently trached on TPierce and is not able to make any medical decisions for himself at this time. Patient has 2 adult sons Davie Kerr and Arnel Kerr. According to [place] Statute, his two aforementioned sons will serve as his health care proxys. Patient`s son Davie is acting in the role of HCP decision maker independently at this time given that he is the one who is reasonably available for consultation. Goals: 04/17/17- Remain Aggressive. SSI pending-Case management following case. CODE STATUS: Full Code SYMPTOMS: * Shortness of breath: Multifactorial. Patient has had aspiration pneumonia. Patient has been intubated 4 times this hospitalization. Patient has a tracheostomy. On duonebs. Patient is also on Hydrocortisone 50mg q 6 hours. Yard Switch Operator following. Trach up-sized to #8. Now on Tpierce 40%- s/p CT guided thoracentesis, 600ml removed. Tobramycin nebs ordered. * Pain: Patient presented initially complaining of pain to right wrist and bilateral knees after a mechanical fall. Patient has a history of gout, arthritis, multiple falls and is currently bedbound. Patient on Oxycodone 5mg q 4 hours ATC. Patient also on Hydrocortisone. Denies pain. * Debility: Progressive. Patient has had decline in his health for the past 4 months, including progressively increased weakness and difficulty ambulating and prolonged hospitalization with multiple setbacks. Patient remains at high risk for further physical deconditioning and debility. PT and OT following with patient. PT and OT following. Patient will benefit from getting OOB to a stretcher chair . PT and OT following. Palliative care will continue to follow the patient during hospital course as condition evolves, to assist patient/decision-maker with understanding of their medical conditions, weighing benefits/burdens of treatment options, for clarification of goals of treatment. Additionally will assist with any symptoms of palliative concern. . Aftab Cartwright Apr 17, 2017 12:37
--- NOTE | 2017-04-17 13:57 | HHI.IDPN ---
Subjective Subjective Remarks Patient is a 62-year-old male, admitted to the hospital for evaluation of pain in his right wrist. He gave a history of falling about a week ago and apparently had immediate pain in the right wrist. He did not seek any medical attention initially because reportedly he was very busy. He eventually presented, and he was found to have a distal ulnar fracture on plain films. He also had some redness and swelling. Orthopedics saw the patient, and was being treated conservatively with the splint. During this hospitalization also he started complaining of generalized weakness but more so in his lower extremity than his upper extremity. He had swelling in both lower extremity which revealed evidence of DVT in the posterior tibial veins. Neurology had seen the patient and he underwent lumbar puncture which apparently was traumatic. Patient was therefore not given anticoagulation because of the traumatic LP, and he underwent placement of an IVC filter on January 25. Patient had another lumbar puncture on February 01. He was felt to have transverse myelitis, and he was given high-dose IV Solu-Medrol from January 27 to February 02. There was apparently some improvement in his weakness. The imaging studies done for his weakness showed some spinal stenosis, and neurosurgery was consult that and recommended that there was no surgical intervention to be done. Patient has been stabilizing, but last night apparently deteriorated, and he ended up getting intubated, and had significant hypotension requiring pressors. There was also an ultrasound done of his left upper extremity which showed DVT, and there was evidence of superior 2 thrombophlebitis. Vascular surgery was consult to it and he had IND on his left upper extremity. Patient has had some fevers since yesterday. 2 blood cultures were done yesterday and they're now reported as growing gram-positive cocci in [place] in clusters. He is currently sedated and intubated. He is on Levophed and vasopressin. A central line was placed as well as a femoral a line. He apparently had an IV in his left upper extremity and that was removed yesterday. Patient also has history of chronic kidney disease, and nephrology evaluated the patient. He was just being monitored for his renal insufficiency. Reconsulted 04/12 for low grade fever, leucocytosis, worsening CXR concern for new pneumonia. Notes reviewed D/W RN Temps better Tolerating T-piece BP ok Has a very moist cough Had thoracentesis 04/13 - 660 ml, fluid did not look infected Sputum with MDR PSAE No central line H/o DVTs bilateral LE S/P IVC filter. H/o DVTs bilateral UE. Antibiotics Zerbaxa IV Flagyl IV Tobra nebs Current Medications Medications (Trade) Dose Ordered Sig/Rosalia Route Start Time Stop Time Status Last Admin (NS Flush) 2 ml UNSCH PRN IV FLUSH 01/23/17 00:30 03/29/17 05:59 (NS Flush) 2 ml BID IV FLUSH 01/23/17 09:00 04/17/17 08:48 (Zofran Inj) 4 mg Q6H PRN IVP 01/23/17 00:30 02/26/17 17:23 (Narcan Inj) 0.4 mg UNSCH PRN IV 01/23/17 00:30 (Edna-Colace) 1 tab BID PO 01/23/17 09:00 Future Hold 02/24/17 20:31 (Dulcolax Supp) 10 mg DAILY PRN RECTAL 01/23/17 00:30 (Lipitor) 10 mg HS PO 01/24/17 21:00 Future hold 04/16/17 21:13 (Glucagon Inj) 1 mg UNSCH PRN OTHER 02/11/17 05:45 02/18/17 18:53 (Flomax) 0.4 mg Q12HR PO 02/17/17 15:00 Future hold 04/17/17 08:46 (Lovenox Inj) 100 mg Q12H SQ 02/18/17 12:00 Future Hold 02/26/17 16:20 (Lactinex) 1 tab TID PO 02/19/17 13:00 04/17/17 11:05 (D50w (Vial) Inj) 25 ml UNSCH PRN IV PUSH 02/20/17 12:45 03/27/17 13:20 (Questran Light Pkt) 4 gm Q12HR PO 02/25/17 21:00 Future Hold 02/27/17 10:32 (Aldactone) 25 mg DAILY PO 02/27/17 09:00 Future Hold (Peridex 0.12% Liq) 15 ml BID@08,20 MT 02/28/17 08:00 04/15/17 21:01 (NS Flush) UNSCH PRN IV FLUSH 03/01/17 13:00 (Heparin Inj) UNSCH PRN IV FLUSH 03/01/17 13:00 (NS Flush) DAILY IV FLUSH 03/04/17 09:00 04/17/17 08:48 (NS Flush) UNSCH PRN IV FLUSH 03/03/17 18:45 (Prevacid Odt) 30 mg BID NG 03/07/17 21:00 04/17/17 08:47 (Tylenol 650 Mg/ 20 ml Liq) 650 mg Q6H PRN PO 03/09/17 10:15 04/15/17 23:49 (Tenormin) 25 mg Q12HR PO 03/12/17 10:00 04/17/17 08:46 (Epogen Inj) 10,000 units UNSCH PRN IV PUSH 03/17/17 11:30 03/22/17 10:52 (Nitroglycerin 2% Oint) 2 inch Q6H PRN TOPICAL 03/23/17 14:00 03/29/17 01:20 (Norvasc) 10 mg DAILY PO 03/28/17 09:00 04/17/17 08:46 (Roxicodone Intensol Liq) 5 mg Q4H PO 04/01/17 18:00 04/17/17 13:34 (NovoLOG SUPPLEMENTAL SCALE) 1 ACHS SLIDING SCALE SQ 04/02/17 12:00 04/08/17 10:15 (Levemir Inj) 10 units BID SQ 04/03/17 21:00 04/17/17 08:47 (NovoLOG INJ) 5 units TIDAC SQ 04/03/17 17:00 Future Hold 04/10/17 08:00 (Xanax) 0.125 mg Q6H PRN PO 04/03/17 22:30 04/17/17 13:31 (Pill Splitter) 1 ea UNSCH PRN OTHER 04/03/17 22:45 (K-Lyte Cl Eff) 25 meq Q12HR PO 04/04/17 14:30 04/17/17 08:46 (Levsin Liq) 0.125 mg Q4H PRN G-TUBE 04/06/17 15:00 04/12/17 10:09 (Questran 4 Gm Pkt) 4 gm Q12HR G-TUBE 04/08/17 21:00 04/17/17 08:46 (SEROquel) 25 mg DAILY PO 04/09/17 09:00 04/17/17 08:46 (Santyl Oint) 1 applic DAILY TOPICAL 04/10/17 09:00 04/17/17 08:47 (Cortef) 10 mg Q12H PO 04/10/17 18:00 04/17/17 06:04 (Lasix Inj) 40 mg BID@09,18 IV PUSH 04/12/17 18:00 04/17/17 08:46 (Free Water) 200 ml Q6HR G-TUBE 04/12/17 18:00 04/17/17 11:06 Ceftolozane/ Tazobactam 1500 mg/Sodium Chloride 100 ml @ 100 mls/hr Q8H IV 04/12/17 17:00 04/17/17 13:31 (Duoneb Neb) 1 ampule Q2HR NEB PRN NEB 04/12/17 17:00 04/14/17 12:38 (Flagyl) 500 mg Q8HR PO 04/13/17 14:00 04/17/17 13:31 Dexmedetomidine HCl 200 mcg/ Sodium Chloride 50 ml @ 4.97 mls/hr TITRATE PRN IV 04/14/17 14:45 04/14/17 15:04 (Tobramycin Neb) 80 mg Q12HR NEB NEB 04/16/17 09:15 04/17/17 08:24 Lines PIV - Line sites with no e.o infection Past Medical History Reviewed Allergies: Coded Allergies: levofloxacin (Verified Allergy, Severe, 01/22/17) Objective . Vital Signs Date Time Temp Pulse Resp B/P (MAP) Pulse Ox O2 Delivery O2 Flow Rate FiO2 04/17/17 12:00 99.0 90 22 101/62 (75) 99 04/17/17 12:00 90 04/17/17 10:00 89 04/17/17 08:24 98 T-piece 6.00 40 04/17/17 08:00 98.6 87 20 96/58 (71) 96 04/17/17 08:00 87 04/17/17 07:00 95 T-Piece 40 04/17/17 06:00 92 04/17/17 04:00 98.5 94 13 116/63 (80) 96 04/17/17 04:00 94 04/17/17 02:00 94 04/17/17 00:15 99 T-piece 7.00 40 04/17/17 00:00 93 04/17/17 00:00 98.3 93 24 84/56 (65) 100 04/16/17 22:00 100 04/16/17 21:28 97 T-piece 04/16/17 20:01 98.2 87 23 100/59 (73) 95 04/16/17 20:00 88 04/16/17 19:00 95 T-Piece 40 04/16/17 18:00 89 04/16/17 16:00 90 04/16/17 16:00 99.2 90 20 94/58 (70) 100 04/16/17 14:00 88 . Laboratory Tests Test 04/17/17 05:10 White Blood Count 14.4 TH/MM3 Red Blood Count 3.30 MIL/MM3 Hemoglobin 9.1 GM/DL Hematocrit 28.3 % Mean Corpuscular Volume 85.8 FL Mean Corpuscular Hemoglobin 27.6 PG Mean Corpuscular Hemoglobin Concent 32.2 % Red Cell Distribution Width 16.8 % Platelet Count 304 TH/MM3 Mean Platelet Volume 8.5 FL Microbiology Date/Time Source Procedure Growth Status 04/16/17 12:10 Blood Peripheral Aerobic Blood Culture - Preliminary NO GROWTH IN 1 DAY Resulted 04/16/17 12:10 Blood Peripheral Anaerobic Blood Culture - Preliminary NO GROWTH IN 1 DAY Resulted 04/16/17 12:05 Blood Peripheral Aerobic Blood Culture - Preliminary NO GROWTH IN 1 DAY Resulted 04/16/17 12:05 Blood Peripheral Anaerobic Blood Culture - Preliminary NO GROWTH IN 1 DAY Resulted Imaging Chest X-Ray 04/14/17 0600 Signed Impressions: Service Date/Time: Friday, April 14, 2017 02:33 - CONCLUSION: 1. Interval placement of left-sided chest tube with improvement in aeration and opacity in the left lung. 2. Mild hazy residual left lung greatest at the lung base. Benjamin Person MD Thoracentesis 04/13/17 1054 Signed Impressions: Service Date/Time: Thursday, April 13, 2017 15:26 - CONCLUSION: Uncomplicated CT-guided right thoracentesis. Candido Mendoza Jr., MD Chest X-Ray 03/14/17 0000 Signed Impressions: Service Date/Time: Tuesday, March 14, 2017 13:41 - CONCLUSION: 1. Tracheostomy in good position. 2. Left lower lung infiltrates and left pleural effusion. Candido Patton MD Aortography 02/28/17 0000 Signed Impressions: Service Date/Time: Tuesday, February 28, 2017 08:01 - CONCLUSION: 1. Active hemorrhage from distal right lateral sacral and iliolumbar branches successfully coil and Gelfoam embolized, as above. Juan Bhakta MD Abdomen/Pelvis CT 02/28/17 0000 Signed Impressions: Service Date/Time: Tuesday, February 28, 2017 06:51 - CONCLUSION: 1. The right retroperitoneal hematoma has increased in size, as above. There are 2 serpiginous arterially enhancing structures visualized, one in the right psoas muscle and another extending into the hematoma at the right iliac fossa. These could represent sites of continued active bleeding. 2. Stable moderate size left and small right pleural effusion with associated compressive atelectasis. 3. Stable small volume of free fluid in the abdomen and pelvis. There is also anasarca. The findings concerning the retroperitoneal hematoma were discussed with Dr. Aguiar via telephone at approximately 7: 10 AM on 02/28/2017. Angelo Allen MD Chest CT 02/27/17 0000 Signed Impressions: Service Date/Time: Monday, February 27, 2017 18:12 - CONCLUSION: 1. Bilateral pleural effusions with bibasilar atelectasis, left greater than right. Tom Sanchez MD Abdomen X-Ray 02/26/17 0000 Signed Impressions: Service Date/Time: Sunday, February 26, 2017 14:52 - CONCLUSION: 1. Nonobstructive bowel gas pattern. Juan Bhakta MD Upper Extremity Ultrasound 02/10/17 0000 Signed Impressions: Service Date/Time: Friday, February 10, 2017 18:46 - CONCLUSION: Occlusive thrombus in the cephalic and basilic veins. Benjamin Person MD Lung Scan- Nuclear Medicine 02/10/17 0000 Signed Impressions: Service Date/Time: Friday, February 10, 2017 22:17 - CONCLUSION: Low probability pulmonary embolism. Candido Patton MD Head CT 02/10/17 0000 Signed Impressions: Service Date/Time: Friday, February 10, 2017 23:51 - CONCLUSION: Negative noncontrast CT brain. Candido Patton MD Wrist X-Ray 02/06/17 0000 Signed Impressions: Service Date/Time: Monday, February 06, 2017 12:50 - CONCLUSION: Minimally displaced distal radius and ulnar fractures. Armando Dodd MD Lumbar Puncture Fluoroscopy 02/01/17 0000 Signed Impressions: Service Date/Time: January 09:35 - CONCLUSION: Uncomplicated fluoroscopically guided lumbar puncture. CSF was clear. Nabeel Peralta MD Head Magnetic Resonance Angiography 01/27/17 Signed Impressions: Service Date/Time: Friday, January 27, 2017 10:33 - CONCLUSION: No intracranial vascular abnormality is identified. There is no aneurysm visualized. Angelo Allen MD IVC Filter Placement X-Ray 01/25/17 0000 Signed Impressions: Service Date/Time: January 10:29 - CONCLUSION: Uncomplicated inferior vena cava filter placement as above. Yung Fowler MD Thoracic Spine MRI 01/24/17 0000 Signed Impressions: Service Date/Time: Tuesday, January 24, 2017 22:29 - CONCLUSION: 1. Mild degenerative spondylosis most prominently at T11-L1 with slight effacement of the anterior thecal sac and left lateral recess. No significant neural foraminal stenosis. 2. No acute fracture. Juan Bhakta MD Renal Ultrasound 01/23/17 0000 Signed Impressions: Service Date/Time: Monday, January 23, 2017 08:53 - CONCLUSION: 1. Evidence of chronic parenchymal disease of both kidneys. No obstructive uropathy or other acute abnormality demonstrated. 2. Trace ascites, nonspecific. Angelo Garrido MD Lumbar Spine MRI 01/23/17 0000 Signed Impressions: Service Date/Time: Monday, January 23, 2017 17:01 - CONCLUSION: 1. At L4-5 is a broad-based disc protrusion with severe central canal and lateral recess stenosis and flattening of the exiting right L4 nerve root. 2. L5-S1 there is a disc protrusion and moderate stenosis with flattening of the exiting L5 nerve roots bilaterally. 3. At L3-4 there is a moderate to severe central stenosis and lateral recess stenosis with mild foraminal stenosis. 4. No acute fracture or spondylolisthesis. Trace Holloway MD Lower Extremity Ultrasound 01/23/17 Signed Impressions: Service Date/Time: Monday, January 23, 2017 09:53 - CONCLUSION: Bilateral focal lower extremity DVT involving the posterior tibial veins. Angelo Garrido MD Cervical Spine MRI 01/23/17 Signed Impressions: Service Date/Time: Monday, January 23, 2017 17:01 - CONCLUSION: 1. Multilevel cervical spine degenerative changes as above. 2. Mild degrees of spinal stenosis at C3/C4-C6/C7. No cord compression or cord signal abnormality. 3. Age indeterminate left paracentral/foraminal disc protrusion at C6/C7. 4. Multilevel foraminal stenosis, most severe on the left at C6/C7. Please see individual levels above. 5. No fracture or subluxation of the cervical spine. Angelo Garrido MD Brain MRI 01/23/17 Signed Impressions: Service Date/Time: Monday, January 23, 2017 17:01 - CONCLUSION: 1. No acute stroke or other acute intracranial abnormality demonstrated. 2. Moderate severity chronic white matter changes, nonspecific but most likely related to chronic small vessel disease. 3. Few scattered tiny lacunar infarcts of the brainstem. 4. Given the findings are not entirely specific, clinical evaluation for possible multiple sclerosis recommended. Angelo Garrido MD Knee X-Ray 01/22/[id number] Signed Impressions: Service Date/Time: Sunday, January 22, 2017 21:17 - CONCLUSION: 1. Evidence of moderate to large joint effusion. 2. No acute fracture or malalignment. 3. Mild 3 compartment osteoarthritic change. Benjamin Person MD Hip and Pelvis X-Ray [id number]/22/[id number] Signed Impressions: Service Date/Time: Sunday, January 22, 2017 21:10 - CONCLUSION: 1. Mild to moderate degenerative change of both hips with no acute fracture or malalignment. There is flattening and remodeling of the right humeral head. Benjamin Person MD Physical Exam GENERAL: Awake and alert, on T-piece, not in distress SKIN: Cool and dry. No generalized rash. Edematous in extremities EYES: [place] conjunctiva. No petechia or hemorrhage. EARS, NOSE AND THROAT: Nose without bleeding or purulent nasal discharge. Dry oral mucosa NECK: Trach site ok. CARDIOVASCULAR: Regular rate and rhythm. Soft heart sounds. No murmurs RESPIRATORY: Coarse BS bilaterally, decreased at bases. ABDOMEN: Soft, not tender, not distended, PEG site ok. No guarding EXTREMITIES: No clubbing, cyanosis. Edema feet better; edema hands better, still present NEUROLOGICAL: awake and following commands PSYCHIATRIC: Calm and cooperative LINE: Lines with no evidence of infection Assessment & Plan Remarks IMPRESSION New Sepsis (fever and leucocytosis) Aspiration Pneumonia in health care setting. Mucus plugs with atelectasis. Worsening leucocytosis. ESBL in urine in recent past. 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 PNA, ?plugging/atelctasis - MDR, I to Zerbaxa, has been tolerating T-piece - likely effusion adding to his respiratory problems, on top of his plugging /secretions Large R retroperitoneal bleed, S/P multiple transfusions and S/P coiling of bleeders Anemia, due to bleed, retroperitoneal MSSA sepsis, due to suppurative thrombophlebitis LUE, S/P I and D and excision of portion of cephalic vein - S/P Rx Respiratory failure, has had several intubations - reintubated again 02/28, extubated 03/11 - reintubated again - S/P trach 03/14 Recent Rx 7 days high dose solumedrol for transverse myelitis Wu LE DVT has IVC filter placed 01/25 - ?hypercoagulable state Chronic kidney disease, worsening creatinine - shock and compression of ureter by hematoma Known DM, HTN RECOMMENDATION Continue Zerbaxa IV (with MDR PSAE and ESBL history) for now Stop Flagyl Continue Tobra nebs Follow C/S Pulmonary following Monitor temps Monitor progress D/W Irene Vogel MD Apr 17, 2017 13:57
--- NOTE | 2017-04-17 14:23 | HHI.CCPN ---
Subjective Remarks/Hospital Course Date of admission: 01/22 Date of critical care medicine consult 02/10 due to acute hypoxemic respiratory failure requiring emergent intubation 62-year-old male with a past medical history of hypertension, hyperlipidemia, diabetes mellitus, gout, uric acid kidney stones, kidney disease of unknown stage who originally presented to [facility] emergency department on 01/22 after a fall in which he sustained a right distal ulna fracture. He had been experiencing a gradual primarily lower extremity weakness as well as upper extremity weakness that was progressive. Neurology consult was obtained. MRI revealed no acute stroke. He had multifocal white matter changes. Tiny lacunar infarcts of the brainstem. Lumbar MRI report states L4-L5 disc protrusion with cetnral canal stenosis. Dr. Blackwell evaluated and states no cord compression on MRI C/T spine and recommended nonoperative management. Symptoms were felt to be consistent with transverse myelitis and he underwent Solumedrol 250 mg IV q6 hours 01/27-02/02. He also was found to have occlusive thrombus in the bilateral posterior tibial veins. Heparin was being avoided because he had traumatic lumbar puncture on 01/26 and 02/01. IVC filter was placed 01/25. He was undergoing physical therapy, reportedly making some improvements with plan to eventually discharged home with his son (max assist standing, and bed to chair per PT note). Apparently he had some vomiting the evening of 02/09 and additional vomiting on 02/10. He had a fever 102.8 on 02/09. Last recorded bowel movement was 02/03. Tonight he had acute onset of severe hypoxemia and respiratory distress. [facility] called and he was brought emergently to [facility] where his sats were 64% on 100% nonrebreather with mean arterial pressure 44. He was emergently intubated, CVL and art line placed. He is in septic shock. SUBJ: 02/11: Patient remains intubated sedated, critically ill. FiO2 reduced to 80% after increasing PEEP to 12. In severe septic shock Levophed at 16 mcg/m, vasopressin at 0.04 international units. D/W vascular surgery Dr. Enciso. He performed bedside Left upper extremity incision and debridement and excision of septic cephalic vein. 02/12: Remains intubated sedated profoundly septic, in shock on vasopressin and 7 mcg/min Levophed. FiO2 has improved to 45%, WBC count remains elevated with 20 ,000 white count significant left shift. Slight improvement in creatinine 2.9 urine output 750 ml 24 hours. 2-D echo shows LV ejection fraction 20-25%, no vegetation reported. Blood cultures 4 staph aureus. Wound culture pending 02/13: Remains critically ill but stable to improving. WBC count is down to 16, creatinine improving to 2.36. Off all pressors. Urine output also improving. 1.5L in 24 hours 02/14: Extubated 02/13. Tolerating well. WBC now down to 12.8. Creat improving 2.3 to 2. UO 3.4L. remains off all pressors. Was started on Precedex yesterday night for agitation, currently on 0.5 g per KG per hour. Chest x-ray shows left more than right air space disease 02/20/17 Re consult: 62-year-old male who was originally admitted for lower extremity weakness and found to have what was thought to be possible transverse myelitis. His hospital course his included a healthcare associated pneumonia, septic thrombophlebitis, DVT. He was most recently in the hospital floor where he had significant nausea and vomiting and diarrhea. His C. difficile test was recently negative. However, he has experienced worsening acute on chronic renal failure, hypotension, tachycardia, and severe hypoxemia. He did have a bout of vomiting earlier today, and his hospitalist attending suspects that he may have aspirated. He arrives by rapid response to the ICU with a nonrebreather in place in severe respiratory distress with SPO2 of 85%. I emergently intubate the patient, see separate procedure note for details. At this point the patient was hypotensive and tachycardic. He does have a history of an EF of 20%, however clinically he appears in florid septic shock. I placed central line and arterial line started vasopressors and gentle IV fluid resuscitation with 1 L of LR. Patient today was empirically broadened to vancomycin and Zosyn from his oxacillin which was initially treating MSSA bacteremia. He is recultured. Critical-care medicine is consulted to evaluate and manage his worsening multiorgan system failure and decompensated septic shock 02/21: Patient remains intubated sedated. Becomes anxious tachypnea on sedation lightening. Chest x-ray shows mild left lower lobe infiltrate. WBC count is slightly improved today from 23.2 t0 21. C Diff negative. UO adequate, creat slightly worsening. 1.57 today 02/22: Remains intubated sedated tolerated CPAP yesterday, plan is for EGD/ Colonscopy. WBC count back to normal. UO adequate. Creat stable 02/23: Tolerating CPAP trials following commands. Will do a spontaneous breathing trials. Status post EGD colonoscopy yesterday -Gastritis, esophagitis. Diverticulosis and multiple polyps. Urine output adequate but creatinine increasing to 1.7 with patient requiring multiple straight catheterization. We'll reinsert Sloan. 02/24: Breathing comfortably 24 hours after extubation. Protects airway well. 02/25: Excoriate bottom, will place rectal FMS. Start pureed diet. 02/26: Afebrile. Complaining of nausea and vomiting this afternoon. Increased stool output. Continue potassium replacement today. 02/27: 10 PM overnight, acutely hypotensive. Received 3 units PRBCs. Antibiotic coverage broadened to piperacillin/tazobactam, cortisol and 1 dose of vancomycin. Oxacillin drip currently on hold. Symptomatically, patient continues to vague abdominal pain/nausea vomiting which is unchanged for the past several days. Lipase elevated yesterday. Lactic acid normal. Troponin normal. Urinary retention after removal of Sloan. Straight catheter 1300. Cc 02/28: New diagnosis large retroperitoneal hematoma. Received 10 PRBC, 14 FFP, 2 platelets, 1 cryo-, 6 g calcium chloride, 2 is magnesium sulfate and 4 mg Bumex. CTA abdomen revealed possible arterial bleeds iliac, lumbar. Patient is currently on norepinephrine and epinephrine drips and possible need right nephrostomy tube placement due to large hematoma compressing ureter. Intra-abdominal bladder pressures are currently 13 03/01: Afebrile. Received 25 g albumin and 1 unit PRBCs overnight. Intra- abdominal bladder pressures currently 19. Currently on 3 micrograms per minute of norepinephrine. Fgfyl-fk-aaki 1 out of 4 on 4 mics grams per kilogram per minute of cisatracurium. 03/02: Slightly hypothermic overnight. Hemoglobin appears to have stabilized. Troponin bump overnight likely secondary to demand ischemia from hypotension. Hemodynamically stable off all vasopressors. 03/03: Received 1 PRBCs overnight. 3 units currently. Off all vasopressors. Likely rebleeding. Stool is dark. 03/04: Remains unstable. Ventilator dependent. 03/05: afebrile. hgb stable. 03/06: bumex drip started overnight. good uop after bumex initiated. still grossly volume overloaded. Cr downtrending. more awake with transition to propofol. still too volume overloaded to tolerate extubation. hgb stable. 03/07: Afebrile. Tolerating tube feeds at goal with Nepro. Positive BM. On low-dose fentanyl and propofol drips. Potassium currently being replaced. 03/08: Eyes will open on ventilator. Afebrile. Tolerating tube feeding. Failed PSV trial yesterday due to apnea. 03/09: Following commands. Tmax 101. Tolerating tube feeding. One hour PSV trial yesterday. Currently tolerating well so far today 1.5 hours 03/10: Low-grade temperatures. Tolerating PSV trial 10 hours yesterday. Currently at 5/5 at 35%. We'll probably attempt extubation a.m. after hemodialysis. 03/11: Extubated currently in 4 L nasal cannula. Thick secretions thick clear with cough. Currently afebrile. Tolerating diet previously. 03/12: Sleepy this morning but arouses. Following commands. Refusing diet at the present time. On 2 L nasal cannula. 03/13: Patient reintubated last night for worsening respiratory status. Currently sedated on mechanical ventilation. Became hypotensive following intubation and is on Levophed 20 mics per minute. 03/14: Sedated, orally intubated on mech vent at the time of my evaluation this AM, subsequently underwent perc trach placement. Remains on levophed for pressor support. Transfused 1 unit PRBCs today. Persisten 03/15: Trach site clean, dry. CXR with bilateral basilar infiltrates. 03/16: Pulmonary congestion persists. Clinical condition not improving. Prognosis becoming increasingly bleak. 03/17: Glucose intolerance worse. No improvement in neurological function. 03/18: Remains on mechanical ventilation via tracheostomy. Off pressors now. Neurologic status remains poor. 03/19: Drowsy, encephalopathic, arousable. On mechanical ventilation via tracheostomy. Levemir increased for hyperglycemia today. Remains off pressors 03/20: More awake, moves both upper extremities. On mechanical ventilation via tracheostomy. Daily C Pap trials ongoing. 03/21: Awake and alert. On mechanical ventilation via tracheostomy. Opens and closes eyes on command. 03/22: Awake and alert. Tolerated T PIECE for 7 hours yesterday. Dialyzed today. 03/23: Currently on T piece trial. Status post dialysis yesterday on 3 L. Awake and alert. Wants to eat. Subjective 03/24: Currently afebrile. Hemodialysis catheter discontinued yesterday from left IJ. Persistent leukocytosis noted. Potassium will be replaced. Furosemide 40 mg twice a day IV to 20 mg IV twice a day 03/25: WBC count unchanged. Patient on T piece with humidified air greater than 48 hours, tolerating it well. Reconsulted 04/12: The patient was transferred emergently from the floor/ [facility]. Patient was initially seen by supervisor marble Dr. Estrada, and the patient was noted to be tachypneic on T piece of 40%. ABGs were performed which showed a PaO2 of 60 on T piece of FiO2 of 40%. Chest x-ray was performed which showed loss of entire left hemidiaphragm assistant associate professor consolidation in the left lower lobe. Concern for mucus plugging versus fluid. The [place] emerg[place] [facility] [place] on a ventilator CT of the chest is pending. Upon arrival in the room the patient is alert and oriented, mouthing words, nodding head to yes and no questions O2 sat is 100% but patient is currently on mechanical ventilation. Currently in no respiratory distress. 04/13: Tmax 99.8. The patient's oxygen requirements have decreased currently FiO2 35% with a PaO2 1 blood gas of 85, O2 saturation 100%. No respiratory distress noted. Patient underwent CT of the chest yesterday noted pleural effusions left greater than right, diagnostic/and therapeutic CT thoracentesis plan for this a.m.. 04/14: Patient underwent CT-guided thoracentesis of the right side with approximately 600 cc withdrawn. Today supervisor marble Dr. LABOY in and up size indwelling 6.0 Shiley to a 8.0 Shiley. Minimal bleeding noted around the site. X-ray improving. Patient started on CPAP trials today, as well as tube feeds were initiated. 04/15: Placed on T piece this morning via tracheostomy. Appears to be tolerating it. Laying in bed not in any acute distress. 04/16: Awake and alert. Tolerating T piece. Tolerating PEG feeds. 04/17: Awake and alert. Tolerating T piece. Tolerating tube feeds via PEG Objective Vital Signs Date Time Temp Pulse Resp B/P (MAP) Pulse Ox O2 Delivery O2 Flow Rate FiO2 04/17/17 12:00 99.0 90 22 101/62 (75) 99 04/17/17 08:24 T-piece 6.00 40 Intake and Output 04/17/17 04/17/17 04/18/17 08:00 16:00 00:00 Intake Total 728 ml Output Total 1700 ml Balance -972 ml Result Diagram: 04/17/17 0510 04/14/17 0604 Imaging Last Impressions Chest CT 04/12/17 1558 Signed Impressions: Service Date/Time: March 17:51 - CONCLUSION: 1. Slight increase in size of bilateral effusions and basilar atelectasis, left greater than right compared with February 27. Tracheostomy in good position. Trace Holloway MD Chest X-Ray 04/12/17 1248 Signed Impressions: Service Date/Time: March 10:59 - CONCLUSION: New hazy opacity involving most of the left hemithorax suggesting either large pleural effusion or developing infiltrates. Stable left lower lung consolidation. Candido Patton MD Renal Ultrasound 04/02/17 0000 Signed Impressions: Service Date/Time: Sunday, April 02, 2017 16:59 - CONCLUSION: Limited exam with the left kidney being unable to be evaluated in the bladder not distended. There do appear to be multiple shadowing stones at the right kidney without hydronephrosis. Angelo Manzo MD Wrist X-Ray 03/27/17 0000 Signed Impressions: Service Date/Time: Monday, March 27, 2017 13:21 - CONCLUSION: 1. No acute fracture is identified. A portion of the previously documented distal ulna fracture remains visualized. 2. 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 Angelo Allen MD Aortography 02/28/17 0000 Signed Impressions: Service Date/Time: Tuesday, February 28, 2017 08:01 - CONCLUSION: 1. Active hemorrhage from distal right lateral sacral and iliolumbar branches successfully coil and Gelfoam embolized, as above. Juan Bhakta MD Abdomen/Pelvis CT 02/28/17 0000 Signed Impressions: Service Date/Time: Tuesday, February 28, 2017 06:51 - CONCLUSION: 1. The right retroperitoneal hematoma has increased in size, as above. There are 2 serpiginous arterially enhancing structures visualized, one in the right psoas muscle and another extending into the hematoma at the right iliac fossa. These could represent sites of continued active bleeding. 2. Stable moderate size left and small right pleural effusion with associated compressive atelectasis. 3. Stable small volume of free fluid in the abdomen and pelvis. There is also anasarca. The findings concerning the retroperitoneal hematoma were discussed with Dr. Aguiar via telephone at approximately 7: 10 AM on 02/28/2017. Angelo Allen MD Abdomen X-Ray 02/26/17 0000 Signed Impressions: Service Date/Time: Sunday, February 26, 2017 14:52 - CONCLUSION: 1. Nonobstructive bowel gas pattern. Juan Bhakta MD Upper Extremity Ultrasound 02/10/17 0000 Signed Impressions: Service Date/Time: Friday, February 10, 2017 18:46 - CONCLUSION: Occlusive thrombus in the cephalic and basilic veins. Benjamin Person MD Lung Scan- Nuclear Medicine 02/10/17 0000 Signed Impressions: Service Date/Time: Friday, February 10, 2017 22:17 - CONCLUSION: Low probability pulmonary embolism. Candido Patton MD Head CT 02/10/17 0000 Signed Impressions: Service Date/Time: Friday, February 10, 2017 23:51 - CONCLUSION: Negative noncontrast CT brain. Candido Patton MD Lumbar Puncture Fluoroscopy 02/01/17 0000 Signed Impressions: Service Date/Time: January 09:35 - CONCLUSION: Uncomplicated fluoroscopically guided lumbar puncture. CSF was clear. Nabeel Peralta MD Head Magnetic Resonance Angiography 01/27/17 0000 Signed Impressions: Service Date/Time: Friday, January 27, 2017 10:33 - CONCLUSION: No intracranial vascular abnormality is identified. There is no aneurysm visualized. Angelo Allen MD IVC Filter Placement X-Ray 01/25/17 0000 Signed Impressions: Service Date/Time: January 10:29 - CONCLUSION: Uncomplicated inferior vena cava filter placement as above. Yung Fowler MD Thoracic Spine MRI 01/24/17 Signed Impressions: Service Date/Time: Tuesday, January 24, 2017 22:29 - CONCLUSION: 1. Mild degenerative spondylosis most prominently at T11-L1 with slight effacement of the anterior thecal sac and left lateral recess. No significant neural foraminal stenosis. 2. No acute fracture. Juan Bhakta MD Lumbar Spine MRI 01/23/17 Signed Impressions: Service Date/Time: Monday, January 23, 2017 17:01 - CONCLUSION: 1. At L4-5 is a broad-based disc protrusion with severe central canal and lateral recess stenosis and flattening of the exiting right L4 nerve root. 2. L5-S1 there is a disc protrusion and moderate stenosis with flattening of the exiting L5 nerve roots bilaterally. 3. At L3-4 there is a moderate to severe central stenosis and lateral recess stenosis with mild foraminal stenosis. 4. No acute fracture or spondylolisthesis. Trace Holloway MD Lower Extremity Ultrasound 01/23/17 Signed Impressions: Service Date/Time: Monday, January 23, 2017 09:53 - CONCLUSION: Bilateral focal lower extremity DVT involving the posterior tibial veins. Angelo Garrido MD Cervical Spine MRI 01/23/17 Signed Impressions: Service Date/Time: Monday, January 23, 2017 17:01 - CONCLUSION: 1. Multilevel cervical spine degenerative changes as above. 2. Mild degrees of spinal stenosis at C3/C4-C6/C7. No cord compression or cord signal abnormality. 3. Age indeterminate left paracentral/foraminal disc protrusion at C6/C7. 4. Multilevel foraminal stenosis, most severe on the left at C6/C7. Please see individual levels above. 5. No fracture or subluxation of the cervical spine. Angelo Garrido MD Brain MRI 01/23/17 Signed Impressions: Service Date/Time: Monday, January 23, 2017 17:01 - CONCLUSION: 1. No acute stroke or other acute intracranial abnormality demonstrated. 2. Moderate severity chronic white matter changes, nonspecific but most likely related to chronic small vessel disease. 3. Few scattered tiny lacunar infarcts of the brainstem. 4. Given the findings are not entirely specific, clinical evaluation for possible multiple sclerosis recommended. Angelo Garrido MD Knee X-Ray 01/22/172053 Signed Impressions: Service Date/Time: Sunday, January 22, 2017 21:17 - CONCLUSION: 1. Evidence of moderate to large joint effusion. 2. No acute fracture or malalignment. 3. Mild 3 compartment osteoarthritic change. Benjamin Person MD Hip and Pelvis X-Ray 01/22/172053 Signed Impressions: Service Date/Time: Sunday, January 22, 2017 21:10 - CONCLUSION: 1. Mild to moderate degenerative change of both hips with no acute fracture or malalignment. There is flattening and remodeling of the right humeral head. Benjamin Persno MD Last Impressions Chest X-Ray 03/14/17 Signed Impressions: Service Date/Time: Tuesday, March 14, 2017 13:41 - CONCLUSION: 1. Tracheostomy in good position. 2. Left lower lung infiltrates and left pleural effusion. Candido Patton MD Aortography 02/28/17 Signed Impressions: Service Date/Time: Tuesday, February 28, 2017 08:01 - CONCLUSION: 1. Active hemorrhage from distal right lateral sacral and iliolumbar branches successfully coil and Gelfoam embolized, as above. Juan Bhakta MD Abdomen/Pelvis CT 02/28/17 Signed Impressions: Service Date/Time: Tuesday, February 28, 2017 06:51 - CONCLUSION: 1. The right retroperitoneal hematoma has increased in size, as above. There are 2 serpiginous arterially enhancing structures visualized, one in the right psoas muscle and another extending into the hematoma at the right iliac fossa. These could represent sites of continued active bleeding. 2. Stable moderate size left and small right pleural effusion with associated compressive atelectasis. 3. Stable small volume of free fluid in the abdomen and pelvis. There is also anasarca. The findings concerning the retroperitoneal hematoma were discussed with Dr. Aguiar via telephone at approximately 7: 10 AM on 02/28/2017. Angelo Allen MD Chest CT 02/27/17 0000 Signed Impressions: Service Date/Time: Monday, February 27, 2017 18:12 - CONCLUSION: 1. Bilateral pleural effusions with bibasilar atelectasis, left greater than right. Tom Sanchez MD Abdomen X-Ray 02/26/17 Signed Impressions: Service Date/Time: Sunday, February 26, 2017 14:52 - CONCLUSION: 1. Nonobstructive bowel gas pattern. Juan Bhakta MD Upper Extremity Ultrasound 02/10/17 Signed Impressions: Service Date/Time: Friday, February 10, 2017 18:46 - CONCLUSION: Occlusive thrombus in the cephalic and basilic veins. Benjamin Person MD Lung Scan-V Nuclear Medicine 02/10/17 Signed Impressions: Service Date/Time: Friday, February 10, 2017 22:17 - CONCLUSION: Low probability pulmonary embolism. Candido Patton MD Head CT 02/10/17 Signed Impressions: Service Date/Time: Friday, February 10, 2017 23:51 - CONCLUSION: Negative noncontrast CT brain. Candido Patton MD Wrist X-Ray 02/06/17 Signed Impressions: Service Date/Time: Monday, February 06, 2017 12:50 - CONCLUSION: Minimally displaced distal radius and ulnar fractures. Armando Dodd MD Lumbar Puncture Fluoroscopy 02/01/17 Signed Impressions: Service Date/Time: January 09:35 - CONCLUSION: Uncomplicated fluoroscopically guided lumbar puncture. CSF was clear. Nabeel Peralta MD Head Magnetic Resonance Angiography 01/27/17 Signed Impressions: Service Date/Time: Friday, January 27, 2017 10:33 - CONCLUSION: No intracranial vascular abnormality is identified. There is no aneurysm visualized. Angelo Allen MD IVC Filter Placement X-Ray 01/25/17 Signed Impressions: Service Date/Time: January 10:29 - CONCLUSION: Uncomplicated inferior vena cava filter placement as above. Yung Fowler MD Thoracic Spine MRI 01/24/17 Signed Impressions: Service Date/Time: Tuesday, January 24, 2017 22:29 - CONCLUSION: 1. Mild degenerative spondylosis most prominently at T11-L1 with slight effacement of the anterior thecal sac and left lateral recess. No significant neural foraminal stenosis. 2. No acute fracture. Juan Bhakta MD Renal Ultrasound 01/23/17 Signed Impressions: Service Date/Time: Monday, January 23, 2017 08:53 - CONCLUSION: 1. Evidence of chronic parenchymal disease of both kidneys. No obstructive uropathy or other acute abnormality demonstrated. 2. Trace ascites, nonspecific. Angelo Garrido MD Lumbar Spine MRI 01/23/17 Signed Impressions: Service Date/Time: Monday, January 23, 2017 17:01 - CONCLUSION: 1. At L4-5 is a broad-based disc protrusion with severe central canal and lateral recess stenosis and flattening of the exiting right L4 nerve root. 2. L5-S1 there is a disc protrusion and moderate stenosis with flattening of the exiting L5 nerve roots bilaterally. 3. At L3-4 there is a moderate to severe central stenosis and lateral recess stenosis with mild foraminal stenosis. 4. No acute fracture or spondylolisthesis. Trace Holloway MD Lower Extremity Ultrasound 01/23/17 Signed Impressions: Service Date/Time: Monday, January 23, 2017 09:53 - CONCLUSION: Bilateral focal lower extremity DVT involving the posterior tibial veins. Angelo Garrido MD Cervical Spine MRI 01/23/17 Signed Impressions: Service Date/Time: Monday, January 23, 2017 17:01 - CONCLUSION: 1. Multilevel cervical spine degenerative changes as above. 2. Mild degrees of spinal stenosis at C3/C4-C6/C7. No cord compression or cord signal abnormality. 3. Age indeterminate left paracentral/foraminal disc protrusion at C6/C7. 4. Multilevel foraminal stenosis, most severe on the left at C6/C7. Please see individual levels above. 5. No fracture or subluxation of the cervical spine. Angelo Garrido MD Brain MRI 01/23/17 Signed Impressions: Service Date/Time: Monday, January 23, 2017 17:01 - CONCLUSION: 1. No acute stroke or other acute intracranial abnormality demonstrated. 2. Moderate severity chronic white matter changes, nonspecific but most likely related to chronic small vessel disease. 3. Few scattered tiny lacunar infarcts of the brainstem. 4. Given the findings are not entirely specific, clinical evaluation for possible multiple sclerosis recommended. Angelo Garrido MD Knee X-Ray 01/22/172053 Signed Impressions: Service Date/Time: Sunday, January 22, 2017 21:17 - CONCLUSION: 1. Evidence of moderate to large joint effusion. 2. No acute fracture or malalignment. 3. Mild 3 compartment osteoarthritic change. Benjamin Person MD Hip and Pelvis X-Ray 01/22/172053 Signed Impressions: Service Date/Time: Sunday, January 22, 2017 21:10 - CONCLUSION: 1. Mild to moderate degenerative change of both hips with no acute fracture or malalignment. There is flattening and remodeling of the right humeral head. Benjamin Person MD Objective Remarks GENERAL: 62-year-old male, resting in bed, on T piece, in no apparent distress nodding head to yes and no questions HEENT: Normocephalic. Atraumatic. Pupils equal, round, reactive. NECK: Tracheostomy in place, around trach site erythematous, yellowish drainage CHEST: On T piece, air entry decreased bilaterally . Scattered rhonchi, no wheezing CARDIOVASCULAR: S1-S2 regular, no gallop or murmur ABDOMEN distended. No rigidity. Umbilical hernia is reducible. No guarding. PEG tube in place : Positive scrotal edema Sloan in situ MUSCULOSKELETAL: Pulses 2+. 1+ bilateral upper and lower extremity edema. NEUROLOGICAL: Awake and alert, has spontaneous eye opening. Opens and closes eyes on command. Moves 4 limbs weakly to stimulation. Procedures 01/25/2017- Retrievable IVC Filter placement 01/26/17-lumbar puncture with fluoroscopy-by interventional radiology 02/01/17- lumbar puncture fluoroscopy by interventional radiology 02/10/17- Endotracheal Intubation 02/10/17-left IJ central venous line placed 02/10/17-left femoral arterial line placed 02/11/17-Diagnostic and therapeutic bronchoscopy with bronchoalveolar lavage 02/11/17-Left upper extremity incision and debridement with excision of septic cephalic vein 02/13/17- Extubated 02/20/17- endotracheal intubation 02/20/17- Left subclavian central line placement 02/20/17-Right radial A-line placement 02/22/17-EGD/colonoscopy 02/28/17-right radial a line 02/28/17- Endotracheal intubation 02/28/17- right sided introducer catheter placement 02/28/17- Right IJ central line placement 02/28/17-Right chest tube placement 02/28/17- Embolization of inferior and superior sacral branches of right internal iliac artery 03/01/17- Hemodialysis access catheter 03/03/17-Right IJ central line placement 03/11/17-Extubated 03/13/17- Endotracheal intubation 03/14/17-Tracheostomy placement, trach downsized to 6.0 Anni 03/30/17 03/15/17-PEG tube placement 04/11/17-CT Chest 04/13/17-thoracentesis right 600 cc removed Date of Insertion: Feb 20, 2017 Date of Insertion: Mar 03, 2017 Line: Central Venous Catheter Side: Right Location: Internal, Jugular A/P Problem List: (1) Septic shock ICD Code: A41.9 - Sepsis, unspecified organism; R65.21 - Severe sepsis with septic shock Status: Acute (2) Acute respiratory failure ICD Code: J96.00 - Acute respiratory failure, unspecified whether with hypoxia or hypercapnia Status: Acute (3) Thrombophlebitis arm ICD Code: I80.8 - Phlebitis and thrombophlebitis of other sites (4) Aspiration pneumonia ICD Code: J69.0 - Pneumonitis due to inhalation of food and vomit Status: Acute (5) Atelectasis of left lung ICD Code: J98.11 - Atelectasis Status: Acute (6) Quadriparesis ICD Code: G82.50 - Quadriplegia, unspecified Status: Acute (7) DVT (deep venous thrombosis) ICD Code: I82.409 - Acute embolism and thrombosis of unspecified deep veins of unspecified lower extremity (8) Altered mental status ICD Code: R41.82 - Altered mental status, unspecified Status: Acute (9) CKD (chronic kidney disease) stage 3, GFR 30-59 ml/min ICD Code: N18.3 - Chronic kidney disease, stage 3 (moderate) Status: Chronic (10) Acute renal failure ICD Code: N17.9 - Acute kidney failure, unspecified Status: Acute (11) Diabetes mellitus ICD Code: E11.9 - Type 2 diabetes mellitus without complications Status: Chronic (12) Distal end of ulna fracture, closed ICD Code: S52.609A - Unspecified fracture of lower end of unspecified ulna, initial encounter for closed fracture Status: Acute (13) Gout ICD Code: M10.9 - Gout, unspecified Status: Chronic Assessment and Plan Assessment: NEURO/PSYCH: Acute metabolic encephalopathy- persistent Quadriparesis secondary to suspected transverse myelitis Recurrent falls Suspected transverse myelitis. Received methylprednisolone 250 mg IV every 6 hours 01/27-02/02, started back on hydrocortisone 02/21/17, initially tapering to 50 mg IV every 8 hours starting received 1 dose at 2100 prior to becoming hypotensive. weaning hydrocortisone taper and stopped 03/09. Resumed hydrocortisone 50mg IV Q6hrly on 03/14 as patient became hypotensive following intubation on 03/13 requiring levophed. Continue Hydrocortisone 50 mg IV every 6 hours LP 01/26 and 02/01. CSF culture negative 01/26, 02/01 Oligoclonal bands negative. CSF/serum IgG index is not elevated. VDRL nonreactive. Cryptococcal antigen negative. Brain MRI 01/23 no acute stroke. Few scattered lacunar infarcts of the brainstem. Moderate chronic white matter changes. MRI cervical/thoracic spine- mild spinal stenosis C3/C4 to C6/C7. No cord compression. RPR negative Neurology has been following, Dr. Crenshaw. Repeat CT brain 02/10 - negative Continue PT/OT Continue oxycodone 10 mg every 4 hours scheduled Will consider EMG and Nerve Conduction studies- physical medicine and rehabilitation consulted RESP: Acute hypoxemic respiratory failure Healthcare associated pneumonia/Aspiration Pneumonia S/P Right-sided chest tube 02/28 Off mechanical ventilation, vent bundle, tolerating T piece. -On T piece >48 hours. Humidified room air Albuterol/ipratropium aerosols every 6 hours with albuterol aerosols every 2 hours prn VQ scan 02/10 low probability for PE. CT chest 02/10 - left lower lobe collapse and consolidation. CT chest 02/27 revealed right greater than left pleural effusions. Extubated 02/23. Intubated 02/28. Extubated 03/11, Reintubated on 03/13. Right-sided chest tube placement 02/28 resident programs assistant, removed 03/05. Failed attempt to wean successfully due to volume overload and multiple organ failure. underwent perc tracheostomy 03/14. CT chest 04/12-slight increase and bilateral effusions left greater than right basilar atelectasis CXR 04/13-moderate pleural effusion left with consolidation of the left lung Pulmonology following Dr. Estrada -Patient has a 6.0 Shiley may also need bronchoscopy to require a larger size trach or intubation. 04/13 CT guided thoracentesis scheduled emergently as discussed with Dr. Estrada - 600cc removed (right) 04/14-tracheostomy up sized to 8.0 Shiley by supervisor marble Dr. Estrada at bedside CV: Severe sepsis - resolved. Systolic heart failure likely chronic with ejection fraction 20-25% Hyperlipidemia History of hypertension Mild TR Sinus tachycardia Elevated troponin likely type II demand ischemia Restarted on Levophed on 03/09 for following intubation, titrated off after starting hydrocortisone. Started hydrocortisone stress dose on 03/14 (as patient has been on steroids and was just tapered off on 03/09.) Patient has on hypotensive twice when attempting to wean off stress dose hydrocortisone in the past. Currently on atenolol 25 mg twice a day. Continue amlodipine 5 mg daily As needed Nitropaste, labetalol and hydralazine for hypertension Atorvastatin 10 mg by mouth daily for dyslipidemia. Troponin 0.[address]-T changes. 2-D echocardiogram 01/11 revealed EF 20-25%. Mild TR. Pulmonary arterial pressures were normal around 20 Troponin 6.55 on 03/02. Currently on furosemide 20 mg IV twice a day per nephrology GI: Large right retroperitoneal hematoma Erosive esophagitis Adematous/hyperplastic colon polyps Severe acute protein calorie malnutrition Nausea/vomiting - resolved. Diarrhea Gastritis Diverticulosis Internal and external hemorrhoids Hiatal hernia Elevated lipase 02/27 CT chest/abdomen and pelvis - 9.4 x 7.5 renal and 16 x 12 cm right psoas muscle hematoma. Fluid around liver and spleen. Right-sided nephrolithiasis CTA abdomen 02/28 - possible blushing around iliac/lumbar vessels Discussed with IR. s/p attempted embolization CT abdomen and pelvis 02/10 atrophic left kidney. Bilateral inguinal hernias fat- containing. Nonobstructing 12 mm right kidney stone repeat CT abd/pelvis did not show evidence of obstruction. patient clinically has been having diarrhea (c. diff negative 02/19). also with nausea/vomiting of unclear etiology. EGD/Colonoscopy-02/22/17 showed gastritis esophagitis, hiatal hernia, diverticulosis and multiple polyps in descending colon and sigmoid which were snared biopsied. Biopsy pending Dr. Lewis consulted for intervention if needed for elevated IAP. will continue to check as needed Status post PEG tube placement by consulted Previously on 1800-calorie ADA diet to this readmission to ICU, consult dietary for tube feeds Lansoprazole 30 mg twice a day for GI prophylaxis FEN/RENAL: Acute kidney injury in the setting of Chronic kidney disease stage 3-4 History of uric acid kidney stones with prior stent BPH Nonfunctioning left kidney Acute intravascular volume overload Hypokalemia Sloan placed due to urinary retention and worsening creatinine Maintain Sloan secondary to urinary retention Monitor intake and output q1hr. Monitor electrolytes. RIOS/SPEP negative. 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 Recommended nephrostomy tube if obstruction Nephrology consulted, hemodialysis per nephrology. Making urine. Due to acute illness holding tamsulosin 0.4 mg by mouth daily for BPH ICU electrolyte replacement protocol Last IHD was 03/22 ID: Septic shock- resolved. Abscess and Suppurative thrombophlebitis left upper extremity MSSA bacteremia Klebsiella UTI ESBL positive Acute aspiration pneumonia/HCAP Previously treated with Bactrim, ertapenem, intermittent vancomycin, nafcillin Blood cultures 2, UA ESBL positive Klebsiella UTI Sputum 03/14 - Pseudomonas came back resistant to imipenem, Stenotrophomonas maltophilia Repeat blood cultures 2 and sputum 03/08 pending. Urine negative. Antibiotics per ID ID following-Dr. Puente HEME: Acute blood loss anemia DVT, bilateral posterior tibial vein, IVC filter Septic thrombophlebitis with occlusive thrombus mid cephalic and basilic vein side Received 10 PRBC, 14 FFP, 2 platelets, 1 cryo-02/28 Received 3 units PRBCs Serial hemoglobins every 6 hours Recheck coags Ultrasound 01/23/17 - Bilateral lower extremity with occlusive posterior tibial vein DVTs. Heparin was initially started for DVT but was placed on hold due to LP with suspected traumatic tap. Currently holding full anticoagulation with enoxaparin 100 mg IV twice a day due to anemia as of 02/26 IVC filter was placed 01/25/17. Ultrasound LUE 02/10 occlusive thrombus mid cephalic vein, basilic vein.s. Transfuse 3 units PRBCs 02/27 Transfuse 2 units PRBCs 03/01. Transfused 1 unit PRBCs on 03/14 ENDO: Diabetes mellitus Hypoglycemia History of prior adrenal insufficiency with shock Gout EGD colonoscopy completed 02/22. gastritis and esophagitis, colon polyps Started Hydrocortisone 100 mg every 8 hours 02/21/17 (Recent high dose steroids use now hypotensive, hypoglycemic), steroids had been tapered off. Resumed stress dose steroids on 03/16 as patient back on Levophed for pressor support after intubation. Continue at 50 mg IV every 6 hours Accu-Cheks to maintain euglycemia Novulin R every 4 hours. Low Regimen Currently on insulin detemir 25 units twice a day for hyperglycemia MSK: Right distal ulna fracture. Recommended nonoperative management. PROPH: Lansoprazole 30 mg twice a day twice a day for stress ulcer prophylaxis. Has IVC filter. Therapeutic enoxaparin was placed on hold for retroperitoneal hematoma ACCESS: right IJ CVL placed 03/03-03/20. A left IJ hemodialysis catheter placed 03/01 - 03/23. Left femoral A line placed 03/14 - discontinued 03/19 Dispo: Discussed with AUTOMATIC CASTING MACHINE OPERATOR at bedside Problem Qualifiers (1) Aspiration pneumonia: (2) DVT (deep venous thrombosis): Qualified Codes: I82.443 - Acute embolism and thrombosis of tibial vein, bilateral (3) Acute renal failure: Qualified Codes: N17.9 - Acute kidney failure, unspecified (4) Diabetes mellitus: (5) Gout: Devin Puente MD Apr 17, 2017 14:23
[2017-04-17] MEDS: ATORVASTATIN 10 MG TAB PO SCH (20:59)
[2017-04-18] VITALS (25 sets, daily range): BP systolic 92–137; BP diastolic 57–76; PULSE 84–104; RESP 16–30; TEMP 98.1–98.7; O2SAT 75–100
[2017-04-18] MEDS: FREE WATER G-TUBE SCH ×4 (00:10→18:00)
[2017-04-18] MEDS: ALPRAZolam 0.25 MG TAB PO PRN ×2 (00:53→10:09)
[2017-04-18] MEDS: CEFTOLOZANE-TAZOBACTAM INJ 1,500 MG in SODIUM CHLORIDE 0.9% INJ 100 ML IV SCH ×3 (01:32→18:11)
[2017-04-18] MEDS: oxyCODONE HCL ORAL CONC 5 MG/0.25 ML SYRINGE PO SCH ×6 (01:32→22:00)
[2017-04-18] MEDS: HYDROCORTISONE 10 MG TAB PO SCH ×2 (05:56→18:12)
[2017-04-18] MEDS: INSULIN ASPART SUPPLEMENTAL SCALE SQ SCH ×4 (08:00→21:00)
[2017-04-18] MEDS: CHLORHEXIDINE 0.12% (ORAL KIT) 15 ML CUP MT SCH ×2 (08:00→20:00)
[2017-04-18] MEDS: INSULIN DETEMIR 100 UNITS/ML VIAL SQ SCH ×2 (09:00→21:00)
[2017-04-18] MEDS: RESP: TOBRAMYCIN SULFATE 80 MG/2 ML NEB NEB SCH ×2 (09:35→20:36)
[2017-04-18] MEDS: CHOLESTYRAMINE 4 GM PACKET G-TUBE SCH ×2 (10:07→21:00)
[2017-04-18] MEDS: SODIUM CHLORIDE 0.9% FLUSH 10 ML FLUSH IV FLUSH SCH ×3 (10:08→21:00)
[2017-04-18] MEDS: FUROSEMIDE 40 MG/4 ML VIAL IV PUSH SCH ×2 (10:09→18:12)
[2017-04-18] MEDS: ATENOLOL 25 MG TAB PO SCH ×2 (10:09→21:00)
[2017-04-18] MEDS: POTASSIUM CHLORIDE 25 MEQ EFFERVESCENT TAB PO SCH ×2 (10:10→21:00)
[2017-04-18] MEDS: QUEtiapine FUMARATE 25 MG TAB PO SCH (10:10)
[2017-04-18] MEDS: LACTOBACILLUS ACIDOPHILUS TAB PO SCH ×3 (10:10→18:12)
[2017-04-18] MEDS: TAMSULOSIN HCL 0.4 MG CAP PO SCH ×2 (10:10→21:00)
[2017-04-18] MEDS: LANSOPRAZOLE SOLUTAB 30 MG TAB NG SCH ×2 (10:10→21:00)
[2017-04-18] MEDS: COLLAGENASE OINT 30 GM TUBE TOPICAL SCH (10:11)
--- NOTE | 2017-04-18 13:21 | HHI.CCPN ---
Subjective Remarks/Hospital Course Date of admission: 01/22 Date of critical care medicine consult 02/10 due to acute hypoxemic respiratory failure requiring emergent intubation 62-year-old male with a past medical history of hypertension, hyperlipidemia, diabetes mellitus, gout, uric acid kidney stones, kidney disease of unknown stage who originally presented to [facility] emergency department on 01/22 after a fall in which he sustained a right distal ulna fracture. He had been experiencing a gradual primarily lower extremity weakness as well as upper extremity weakness that was progressive. Neurology consult was obtained. MRI revealed no acute stroke. He had multifocal white matter changes. Tiny lacunar infarcts of the brainstem. Lumbar MRI report states L4-L5 disc protrusion with cetnral canal stenosis. Dr. Blackwell evaluated and states no cord compression on MRI C/T spine and recommended nonoperative management. Symptoms were felt to be consistent with transverse myelitis and he underwent Solumedrol 250 mg IV q6 hours 01/27-02/02. He also was found to have occlusive thrombus in the bilateral posterior tibial veins. Heparin was being avoided because he had traumatic lumbar puncture on 01/26 and 02/01. IVC filter was placed 01/25. He was undergoing physical therapy, reportedly making some improvements with plan to eventually discharged home with his son (max assist standing, and bed to chair per PT note). Apparently he had some vomiting the evening of 02/09 and additional vomiting on 02/10. He had a fever 102.8 on 02/09. Last recorded bowel movement was 02/03. Tonight he had acute onset of severe hypoxemia and respiratory distress. [facility] called and he was brought emergently to [facility] where his sats were 64% on 100% nonrebreather with mean arterial pressure 44. He was emergently intubated, CVL and art line placed. He is in septic shock. SUBJ: 02/11: Patient remains intubated sedated, critically ill. FiO2 reduced to 80% after increasing PEEP to 12. In severe septic shock Levophed at 16 mcg/m, vasopressin at 0.04 international units. D/W vascular surgery Dr. Enciso. He performed bedside Left upper extremity incision and debridement and excision of septic cephalic vein. 02/12: Remains intubated sedated profoundly septic, in shock on vasopressin and 7 mcg/min Levophed. FiO2 has improved to 45%, WBC count remains elevated with 20 ,000 white count significant left shift. Slight improvement in creatinine 2.9 urine output 750 ml 24 hours. 2-D echo shows LV ejection fraction 20-25%, no vegetation reported. Blood cultures 4 staph aureus. Wound culture pending 02/13: Remains critically ill but stable to improving. WBC count is down to 16, creatinine improving to 2.36. Off all pressors. Urine output also improving. 1.5L in 24 hours 02/14: Extubated 02/13. Tolerating well. WBC now down to 12.8. Creat improving 2.3 to 2. UO 3.4L. remains off all pressors. Was started on Precedex yesterday night for agitation, currently on 0.5 g per KG per hour. Chest x-ray shows left more than right air space disease 02/20/17 Re consult: 62-year-old male who was originally admitted for lower extremity weakness and found to have what was thought to be possible transverse myelitis. His hospital course his included a healthcare associated pneumonia, septic thrombophlebitis, DVT. He was most recently in the hospital floor where he had significant nausea and vomiting and diarrhea. His C. difficile test was recently negative. However, he has experienced worsening acute on chronic renal failure, hypotension, tachycardia, and severe hypoxemia. He did have a bout of vomiting earlier today, and his hospitalist attending suspects that he may have aspirated. He arrives by rapid response to the ICU with a nonrebreather in place in severe respiratory distress with SPO2 of 85%. I emergently intubate the patient, see separate procedure note for details. At this point the patient was hypotensive and tachycardic. He does have a history of an EF of 20%, however clinically he appears in florid septic shock. I placed central line and arterial line started vasopressors and gentle IV fluid resuscitation with 1 L of LR. Patient today was empirically broadened to vancomycin and Zosyn from his oxacillin which was initially treating MSSA bacteremia. He is recultured. Critical-care medicine is consulted to evaluate and manage his worsening multiorgan system failure and decompensated septic shock 02/21: Patient remains intubated sedated. Becomes anxious tachypnea on sedation lightening. Chest x-ray shows mild left lower lobe infiltrate. WBC count is slightly improved today from 23.2 t0 21. C Diff negative. UO adequate, creat slightly worsening. 1.57 today 02/22: Remains intubated sedated tolerated CPAP yesterday, plan is for EGD/ Colonscopy. WBC count back to normal. UO adequate. Creat stable 02/23: Tolerating CPAP trials following commands. Will do a spontaneous breathing trials. Status post EGD colonoscopy yesterday -Gastritis, esophagitis. Diverticulosis and multiple polyps. Urine output adequate but creatinine increasing to 1.7 with patient requiring multiple straight catheterization. We'll reinsert Sloan. 02/24: Breathing comfortably 24 hours after extubation. Protects airway well. 02/25: Excoriate bottom, will place rectal FMS. Start pureed diet. 02/26: Afebrile. Complaining of nausea and vomiting this afternoon. Increased stool output. Continue potassium replacement today. 02/27: 10 PM overnight, acutely hypotensive. Received 3 units PRBCs. Antibiotic coverage broadened to piperacillin/tazobactam, cortisol and 1 dose of vancomycin. Oxacillin drip currently on hold. Symptomatically, patient continues to vague abdominal pain/nausea vomiting which is unchanged for the past several days. Lipase elevated yesterday. Lactic acid normal. Troponin normal. Urinary retention after removal of Sloan. Straight catheter 1300. Cc 02/28: New diagnosis large retroperitoneal hematoma. Received 10 PRBC, 14 FFP, 2 platelets, 1 cryo-, 6 g calcium chloride, 2 is magnesium sulfate and 4 mg Bumex. CTA abdomen revealed possible arterial bleeds iliac, lumbar. Patient is currently on norepinephrine and epinephrine drips and possible need right nephrostomy tube placement due to large hematoma compressing ureter. Intra-abdominal bladder pressures are currently 13 03/01: Afebrile. Received 25 g albumin and 1 unit PRBCs overnight. Intra- abdominal bladder pressures currently 19. Currently on 3 micrograms per minute of norepinephrine. Xeesb-[id number] 1 out of 4 on 4 mics grams per kilogram per minute of cisatracurium. 03/02: Slightly hypothermic overnight. Hemoglobin appears to have stabilized. Troponin bump overnight likely secondary to demand ischemia from hypotension. Hemodynamically stable off all vasopressors. 03/03: Received 1 PRBCs overnight. 3 units currently. Off all vasopressors. Likely rebleeding. Stool is dark. 03/04: Remains unstable. Ventilator dependent. 03/05: afebrile. hgb stable. 03/06: bumex drip started overnight. good uop after bumex initiated. still grossly volume overloaded. Cr downtrending. more awake with transition to propofol. still too volume overloaded to tolerate extubation. hgb stable. 03/07: Afebrile. Tolerating tube feeds at goal with Nepro. Positive BM. On low-dose fentanyl and propofol drips. Potassium currently being replaced. 03/08: Eyes will open on ventilator. Afebrile. Tolerating tube feeding. Failed PSV trial yesterday due to apnea. 03/09: Following commands. Tmax 101. Tolerating tube feeding. One hour PSV trial yesterday. Currently tolerating well so far today 1.5 hours 03/10: Low-grade temperatures. Tolerating PSV trial 10 hours yesterday. Currently at 5/5 at 35%. We'll probably attempt extubation a.m. after hemodialysis. 03/11: Extubated currently in 4 L nasal cannula. Thick secretions thick clear with cough. Currently afebrile. Tolerating diet previously. 03/12: Sleepy this morning but arouses. Following commands. Refusing diet at the present time. On 2 L nasal cannula. 03/13: Patient reintubated last night for worsening respiratory status. Currently sedated on mechanical ventilation. Became hypotensive following intubation and is on Levophed 20 mics per minute. 03/14: Sedated, orally intubated on mech vent at the time of my evaluation this AM, subsequently underwent perc trach placement. Remains on levophed for pressor support. Transfused 1 unit PRBCs today. Persisten 03/15: Trach site clean, dry. CXR with bilateral basilar infiltrates. 03/16: Pulmonary congestion persists. Clinical condition not improving. Prognosis becoming increasingly bleak. 03/17: Glucose intolerance worse. No improvement in neurological function. 03/18: Remains on mechanical ventilation via tracheostomy. Off pressors now. Neurologic status remains poor. 03/19: Drowsy, encephalopathic, arousable. On mechanical ventilation via tracheostomy. Levemir increased for hyperglycemia today. Remains off pressors 03/20: More awake, moves both upper extremities. On mechanical ventilation via tracheostomy. Daily C Pap trials ongoing. 03/21: Awake and alert. On mechanical ventilation via tracheostomy. Opens and closes eyes on command. 03/22: Awake and alert. Tolerated T PIECE for 7 hours yesterday. Dialyzed today. 03/23: Currently on T piece trial. Status post dialysis yesterday on 3 L. Awake and alert. Wants to eat. Subjective 03/24: Currently afebrile. Hemodialysis catheter discontinued yesterday from left IJ. Persistent leukocytosis noted. Potassium will be replaced. Furosemide 40 mg twice a day IV to 20 mg IV twice a day 03/25: WBC count unchanged. Patient on T piece with humidified air greater than 48 hours, tolerating it well. Reconsulted 04/12: The patient was transferred emergently from the floor/ [facility]. Patient was initially seen by education professor Dr. Estrada, and the patient was noted to be tachypneic on T piece of 40%. ABGs were performed which showed a PaO2 of 60 on T piece of FiO2 of 40%. Chest x-ray was performed which showed loss of entire left hemidiaphragm assistant designer consolidation in the left lower lobe. Concern for mucus plugging versus fluid. The patient was transferred emergently to [facility] placed on a ventilator CT of the chest is pending. Upon arrival in the room the patient is alert and oriented, mouthing words, nodding head to yes and no questions O2 sat is 100% but patient is currently on mechanical ventilation. Currently in no respiratory distress. 04/13: Tmax 99.8. The patient's oxygen requirements have decreased currently FiO2 35% with a PaO2 1 blood gas of 85, O2 saturation 100%. No respiratory distress noted. Patient underwent CT of the chest yesterday noted pleural effusions left greater than right, diagnostic/and therapeutic CT thoracentesis plan for this a.m.. 04/14: Patient underwent CT-guided thoracentesis of the right side with approximately 600 cc withdrawn. Today education professor Dr. LABOY in and up size indwelling 6.0 Shiley to a 8.0 Shiley. Minimal bleeding noted around the site. X-ray improving. Patient started on CPAP trials today, as well as tube feeds were initiated. 04/15: Placed on T piece this morning via tracheostomy. Appears to be tolerating it. Laying in bed not in any acute distress. 04/16: Awake and alert. Tolerating T piece. Tolerating PEG feeds. 04/17: Awake and alert. Tolerating T piece. Tolerating tube feeds via PEG 04/18: Awake and alert. Tolerating TPs. Tolerating tube feeds. Passed swallow eval Objective Vital Signs Date Time Temp Pulse Resp B/P (MAP) Pulse Ox O2 Delivery O2 Flow Rate FiO2 04/18/17 09:36 100 T-piece 6.00 40 04/18/17 04:00 98.3 92 20 104/64 (77) Intake and Output 04/18/17 04/18/17 04/19/17 08:00 16:00 00:00 Intake Total 704 ml Output Total 1950 ml Balance -1246 ml Result Diagram: 04/17/17 0510 04/14/17 0604 Imaging Last Impressions Chest CT 04/12/17 1558 Signed Impressions: Service Date/Time: March 17:51 - CONCLUSION: 1. Slight increase in size of bilateral effusions and basilar atelectasis, left greater than right compared with February 27. Tracheostomy in good position. Trace Holloway MD Chest X-Ray 04/12/17 1248 Signed Impressions: Service Date/Time: March 10:59 - CONCLUSION: New hazy opacity involving most of the left hemithorax suggesting either large pleural effusion or developing infiltrates. Stable left lower lung consolidation. Candido Patton MD Renal Ultrasound 04/02/17 0000 Signed Impressions: Service Date/Time: Sunday, April 02, 2017 16:59 - CONCLUSION: Limited exam with the left kidney being unable to be evaluated in the bladder not distended. There do appear to be multiple shadowing stones at the right kidney without hydronephrosis. Angelo Manzo MD Wrist X-Ray 03/27/17 0000 Signed Impressions: Service Date/Time: Monday, March 27, 2017 13:21 - CONCLUSION: 1. No acute fracture is identified. A portion of the previously documented distal ulna fracture remains visualized. 2. 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 Angelo Allen MD Aortography 02/28/17 0000 Signed Impressions: Service Date/Time: Tuesday, February 28, 2017 08:01 - CONCLUSION: 1. Active hemorrhage from distal right lateral sacral and iliolumbar branches successfully coil and Gelfoam embolized, as above. Juan Bhakta MD Abdomen/Pelvis CT 02/28/17 0000 Signed Impressions: Service Date/Time: Tuesday, February 28, 2017 06:51 - CONCLUSION: 1. The right retroperitoneal hematoma has increased in size, as above. There are 2 serpiginous arterially enhancing structures visualized, one in the right psoas muscle and another extending into the hematoma at the right iliac fossa. These could represent sites of continued active bleeding. 2. Stable moderate size left and small right pleural effusion with associated compressive atelectasis. 3. Stable small volume of free fluid in the abdomen and pelvis. There is also anasarca. The findings concerning the retroperitoneal hematoma were discussed with Dr. Aguiar via telephone at approximately 7: 10 AM on 02/28/2017. Angelo Allen MD Abdomen X-Ray 02/26/17 0000 Signed Impressions: Service Date/Time: Sunday, February 26, 2017 14:52 - CONCLUSION: 1. Nonobstructive bowel gas pattern. Juan Bhakta MD Upper Extremity Ultrasound 02/10/17 0000 Signed Impressions: Service Date/Time: Friday, February 10, 2017 18:46 - CONCLUSION: Occlusive thrombus in the cephalic and basilic veins. Benjamin Person MD Lung Scan- Nuclear Medicine 02/10/17 0000 Signed Impressions: Service Date/Time: Friday, February 10, 2017 22:17 - CONCLUSION: Low probability pulmonary embolism. Candido Patton MD Head CT 02/10/17 0000 Signed Impressions: Service Date/Time: Friday, February 10, 2017 23:51 - CONCLUSION: Negative noncontrast CT brain. Candido Patton MD Lumbar Puncture Fluoroscopy 02/01/17 0000 Signed Impressions: Service Date/Time: January 09:35 - CONCLUSION: Uncomplicated fluoroscopically guided lumbar puncture. CSF was clear. Nabeel Peralta MD Head Magnetic Resonance Angiography 01/27/17 0000 Signed Impressions: Service Date/Time: Friday, January 27, 2017 10:33 - CONCLUSION: No intracranial vascular abnormality is identified. There is no aneurysm visualized. Angelo Allen MD IVC Filter Placement X-Ray 01/25/17 0000 Signed Impressions: Service Date/Time: January 10:29 - CONCLUSION: Uncomplicated inferior vena cava filter placement as above. Yung Fowler MD Thoracic Spine MRI 01/24/17 Signed Impressions: Service Date/Time: Tuesday, January 24, 2017 22:29 - CONCLUSION: 1. Mild degenerative spondylosis most prominently at T11-L1 with slight effacement of the anterior thecal sac and left lateral recess. No significant neural foraminal stenosis. 2. No acute fracture. Juan Bhakta MD Lumbar Spine MRI 01/23/17 Signed Impressions: Service Date/Time: Monday, January 23, 2017 17:01 - CONCLUSION: 1. At L4-5 is a broad-based disc protrusion with severe central canal and lateral recess stenosis and flattening of the exiting right L4 nerve root. 2. L5-S1 there is a disc protrusion and moderate stenosis with flattening of the exiting L5 nerve roots bilaterally. 3. At L3-4 there is a moderate to severe central stenosis and lateral recess stenosis with mild foraminal stenosis. 4. No acute fracture or spondylolisthesis. Trace Holloway MD Lower Extremity Ultrasound 01/23/17 Signed Impressions: Service Date/Time: Monday, January 23, 2017 09:53 - CONCLUSION: Bilateral focal lower extremity DVT involving the posterior tibial veins. Angelo Garrido MD Cervical Spine MRI 01/23/17 Signed Impressions: Service Date/Time: Monday, January 23, 2017 17:01 - CONCLUSION: 1. Multilevel cervical spine degenerative changes as above. 2. Mild degrees of spinal stenosis at C3/C4-C6/C7. No cord compression or cord signal abnormality. 3. Age indeterminate left paracentral/foraminal disc protrusion at C6/C7. 4. Multilevel foraminal stenosis, most severe on the left at C6/C7. Please see individual levels above. 5. No fracture or subluxation of the cervical spine. Angelo Garrido MD Brain MRI 01/23/17 Signed Impressions: Service Date/Time: Monday, January 23, 2017 17:01 - CONCLUSION: 1. No acute stroke or other acute intracranial abnormality demonstrated. 2. Moderate severity chronic white matter changes, nonspecific but most likely related to chronic small vessel disease. 3. Few scattered tiny lacunar infarcts of the brainstem. 4. Given the findings are not entirely specific, clinical evaluation for possible multiple sclerosis recommended. Angelo Garrido MD Knee X-Ray 01/22/172053 Signed Impressions: Service Date/Time: Sunday, January 22, 2017 21:17 - CONCLUSION: 1. Evidence of moderate to large joint effusion. 2. No acute fracture or malalignment. 3. Mild 3 compartment osteoarthritic change. Benjamin Person MD Hip and Pelvis X-Ray [id number]/22/[id number] Signed Impressions: Service Date/Time: Sunday, January 22, 2017 21:10 - CONCLUSION: 1. Mild to moderate degenerative change of both hips with no acute fracture or malalignment. There is flattening and remodeling of the right humeral head. Benjamin Person MD Last Impressions Chest X-Ray 03/14/17 0000 Signed Impressions: Service Date/Time: Tuesday, March 14, 2017 13:41 - CONCLUSION: 1. Tracheostomy in good position. 2. Left lower lung infiltrates and left pleural effusion. Candido Patton MD Aortography 02/28/17 0000 Signed Impressions: Service Date/Time: Tuesday, February 28, 2017 08:01 - CONCLUSION: 1. Active hemorrhage from distal right lateral sacral and iliolumbar branches successfully coil and Gelfoam embolized, as above. Juan Bhakta MD Abdomen/Pelvis CT 02/28/17 0000 Signed Impressions: Service Date/Time: Tuesday, February 28, 2017 06:51 - CONCLUSION: 1. The right retroperitoneal hematoma has increased in size, as above. There are 2 serpiginous arterially enhancing structures visualized, one in the right psoas muscle and another extending into the hematoma at the right iliac fossa. These could represent sites of continued active bleeding. 2. Stable moderate size left and small right pleural effusion with associated compressive atelectasis. 3. Stable small volume of free fluid in the abdomen and pelvis. There is also anasarca. The findings concerning the retroperitoneal hematoma were discussed with Dr. Aguiar via telephone at approximately 7: 10 AM on 02/28/2017. Angelo Allen MD Chest CT 02/27/17 0000 Signed Impressions: Service Date/Time: Monday, February 27, 2017 18:12 - CONCLUSION: 1. Bilateral pleural effusions with bibasilar atelectasis, left greater than right. Tom Sanchez MD Abdomen X-Ray 02/26/17 Signed Impressions: Service Date/Time: Sunday, February 26, 2017 14:52 - CONCLUSION: 1. Nonobstructive bowel gas pattern. Juan Bhakta MD Upper Extremity Ultrasound 02/10/17 Signed Impressions: Service Date/Time: Friday, February 10, 2017 18:46 - CONCLUSION: Occlusive thrombus in the cephalic and basilic veins. Benjamin Person MD Lung Scan-V Nuclear Medicine 02/10/17 Signed Impressions: Service Date/Time: Friday, February 10, 2017 22:17 - CONCLUSION: Low probability pulmonary embolism. Candido Patton MD Head CT 02/10/17 0000 Signed Impressions: Service Date/Time: Friday, February 10, 2017 23:51 - CONCLUSION: Negative noncontrast CT brain. Candido Patton MD Wrist X-Ray 02/06/17 0000 Signed Impressions: Service Date/Time: Monday, February 06, 2017 12:50 - CONCLUSION: Minimally displaced distal radius and ulnar fractures. Armando Dodd MD Lumbar Puncture Fluoroscopy 02/01/17 0000 Signed Impressions: Service Date/Time: January 09:35 - CONCLUSION: Uncomplicated fluoroscopically guided lumbar puncture. CSF was clear. Nabeel Peralta MD Head Magnetic Resonance Angiography 01/27/17 0000 Signed Impressions: Service Date/Time: Friday, January 27, 2017 10:33 - CONCLUSION: No intracranial vascular abnormality is identified. There is no aneurysm visualized. Angelo Allen MD IVC Filter Placement X-Ray 01/25/17 0000 Signed Impressions: Service Date/Time: January 10:29 - CONCLUSION: Uncomplicated inferior vena cava filter placement as above. Yung Fowler MD Thoracic Spine MRI 01/24/17 0000 Signed Impressions: Service Date/Time: Tuesday, January 24, 2017 22:29 - CONCLUSION: 1. Mild degenerative spondylosis most prominently at T11-L1 with slight effacement of the anterior thecal sac and left lateral recess. No significant neural foraminal stenosis. 2. No acute fracture. Juan Bhakta MD Renal Ultrasound 01/23/17 Signed Impressions: Service Date/Time: Monday, January 23, 2017 08:53 - CONCLUSION: 1. Evidence of chronic parenchymal disease of both kidneys. No obstructive uropathy or other acute abnormality demonstrated. 2. Trace ascites, nonspecific. Angelo Garrido MD Lumbar Spine MRI 01/23/17 Signed Impressions: Service Date/Time: Monday, January 23, 2017 17:01 - CONCLUSION: 1. At L4-5 is a broad-based disc protrusion with severe central canal and lateral recess stenosis and flattening of the exiting right L4 nerve root. 2. L5-S1 there is a disc protrusion and moderate stenosis with flattening of the exiting L5 nerve roots bilaterally. 3. At L3-4 there is a moderate to severe central stenosis and lateral recess stenosis with mild foraminal stenosis. 4. No acute fracture or spondylolisthesis. Trace Holloway MD Lower Extremity Ultrasound 01/23/17 Signed Impressions: Service Date/Time: Monday, January 23, 2017 09:53 - CONCLUSION: Bilateral focal lower extremity DVT involving the posterior tibial veins. Angelo Garrido MD Cervical Spine MRI 01/23/17 Signed Impressions: Service Date/Time: Monday, January 23, 2017 17:01 - CONCLUSION: 1. Multilevel cervical spine degenerative changes as above. 2. Mild degrees of spinal stenosis at C3/C4-C6/C7. No cord compression or cord signal abnormality. 3. Age indeterminate left paracentral/foraminal disc protrusion at C6/C7. 4. Multilevel foraminal stenosis, most severe on the left at C6/C7. Please see individual levels above. 5. No fracture or subluxation of the cervical spine. Angelo Garrido MD Brain MRI 01/23/17 Signed Impressions: Service Date/Time: Monday, January 23, 2017 17:01 - CONCLUSION: 1. No acute stroke or other acute intracranial abnormality demonstrated. 2. Moderate severity chronic white matter changes, nonspecific but most likely related to chronic small vessel disease. 3. Few scattered tiny lacunar infarcts of the brainstem. 4. Given the findings are not entirely specific, clinical evaluation for possible multiple sclerosis recommended. Angelo Garrido MD Knee X-Ray 01/22/172053 Signed Impressions: Service Date/Time: Sunday, January 22, 2017 21:17 - CONCLUSION: 1. Evidence of moderate to large joint effusion. 2. No acute fracture or malalignment. 3. Mild 3 compartment osteoarthritic change. Benjamin Person MD Hip and Pelvis X-Ray 01/22/172053 Signed Impressions: Service Date/Time: Sunday, January 22, 2017 21:10 - CONCLUSION: 1. Mild to moderate degenerative change of both hips with no acute fracture or malalignment. There is flattening and remodeling of the right humeral head. Benjamin Person MD Objective Remarks GENERAL: 62-year-old male, resting in bed, on T piece, in no apparent distress nodding head to yes and no questions HEENT: Normocephalic. Atraumatic. Pupils equal, round, reactive. NECK: Tracheostomy in place, around trach site erythematous, yellowish drainage CHEST: On T piece, air entry decreased bilaterally . Scattered rhonchi, no wheezing CARDIOVASCULAR: S1-S2 regular, no gallop or murmur ABDOMEN distended. No rigidity. Umbilical hernia is reducible. No guarding. PEG tube in place : Positive scrotal edema Sloan in situ MUSCULOSKELETAL: Pulses 2+. 1+ bilateral upper and lower extremity edema. NEUROLOGICAL: Awake and alert, has spontaneous eye opening. Opens and closes eyes on command. Moves 4 limbs weakly to stimulation. Procedures 01/25/2017- Retrievable IVC Filter placement 01/26/17-lumbar puncture with fluoroscopy-by interventional radiology 02/01/17- lumbar puncture fluoroscopy by interventional radiology 02/10/17- Endotracheal Intubation 02/10/17-left IJ central venous line placed 02/10/17-left femoral arterial line placed 02/11/17-Diagnostic and therapeutic bronchoscopy with bronchoalveolar lavage 02/11/17-Left upper extremity incision and debridement with excision of septic cephalic vein 02/13/17- Extubated 02/20/17- endotracheal intubation 02/20/17- Left subclavian central line placement 02/20/17-Right radial A-line placement 02/22/17-EGD/colonoscopy 02/28/17-right radial a line 02/28/17- Endotracheal intubation 02/28/17- right sided introducer catheter placement 02/28/17- Right IJ central line placement 02/28/17-Right chest tube placement 02/28/17- Embolization of inferior and superior sacral branches of right internal iliac artery 03/01/17- Hemodialysis access catheter 03/03/17-Right IJ central line placement 03/11/17-Extubated 03/13/17- Endotracheal intubation 03/14/17-Tracheostomy placement, trach downsized to 6.0 Shiley 03/30/17 03/15/17-PEG tube placement 04/11/17-CT Chest 04/13/17-thoracentesis right 600 cc removed Date of Insertion: Feb 20, 2017 Date of Insertion: Mar 03, 2017 Line: Central Venous Catheter Side: Right Location: Internal, Jugular A/P Problem List: (1) Septic shock ICD Code: A41.9 - Sepsis, unspecified organism; R65.21 - Severe sepsis with septic shock Status: Acute (2) Acute respiratory failure ICD Code: J96.00 - Acute respiratory failure, unspecified whether with hypoxia or hypercapnia Status: Acute (3) Thrombophlebitis arm ICD Code: I80.8 - Phlebitis and thrombophlebitis of other sites (4) Aspiration pneumonia ICD Code: J69.0 - Pneumonitis due to inhalation of food and vomit Status: Acute (5) Atelectasis of left lung ICD Code: J98.11 - Atelectasis Status: Acute (6) Quadriparesis ICD Code: G82.50 - Quadriplegia, unspecified Status: Acute (7) DVT (deep venous thrombosis) ICD Code: I82.409 - Acute embolism and thrombosis of unspecified deep veins of unspecified lower extremity (8) Altered mental status ICD Code: R41.82 - Altered mental status, unspecified Status: Acute (9) CKD (chronic kidney disease) stage 3, GFR 30-59 ml/min ICD Code: N18.3 - Chronic kidney disease, stage 3 (moderate) Status: Chronic (10) Acute renal failure ICD Code: N17.9 - Acute kidney failure, unspecified Status: Acute (11) Diabetes mellitus ICD Code: E11.9 - Type 2 diabetes mellitus without complications Status: Chronic (12) Distal end of ulna fracture, closed ICD Code: S52.609A - Unspecified fracture of lower end of unspecified ulna, initial encounter for closed fracture Status: Acute (13) Gout ICD Code: M10.9 - Gout, unspecified Status: Chronic Assessment and Plan Assessment: NEURO/PSYCH: Acute metabolic encephalopathy- persistent Quadriparesis secondary to suspected transverse myelitis Recurrent falls Suspected transverse myelitis. Received methylprednisolone 250 mg IV every 6 hours 01/27-02/02, started back on hydrocortisone 02/21/17, initially tapering to 50 mg IV every 8 hours starting received 1 dose at 2100 prior to becoming hypotensive. weaning hydrocortisone taper and stopped 03/09. Resumed hydrocortisone 50mg IV Q6hrly on 03/14 as patient became hypotensive following intubation on 03/13 requiring levophed. Continue Hydrocortisone 50 mg IV every 6 hours LP 01/26 and 02/01. CSF culture negative 01/26, 02/01 Oligoclonal bands negative. CSF/serum IgG index is not elevated. VDRL nonreactive. Cryptococcal antigen negative. Brain MRI 01/23 no acute stroke. Few scattered lacunar infarcts of the brainstem. Moderate chronic white matter changes. MRI cervical/thoracic spine- mild spinal stenosis C3/C4 to C6/C7. No cord compression. RPR negative Neurology has been following, Dr. Crenshaw. Repeat CT brain 02/10 - negative Continue PT/OT Continue oxycodone 10 mg every 4 hours scheduled Will consider EMG and Nerve Conduction studies- physical medicine and rehabilitation consulted RESP: Acute hypoxemic respiratory failure Healthcare associated pneumonia/Aspiration Pneumonia S/P Right-sided chest tube 02/28 Off mechanical ventilation, vent bundle, tolerating T piece. -On T piece >48 hours. Humidified room air Albuterol/ipratropium aerosols every 6 hours with albuterol aerosols every 2 hours prn VQ scan 02/10 low probability for PE. CT chest 02/10 - left lower lobe collapse and consolidation. CT chest 02/27 revealed right greater than left pleural effusions. Extubated 02/23. Intubated 02/28. Extubated 03/11, Reintubated on 03/13. Right-sided chest tube placement 02/28 program admin, removed 03/05. Failed attempt to wean successfully due to volume overload and multiple organ failure. underwent perc tracheostomy 03/14. CT chest 04/12-slight increase and bilateral effusions left greater than right basilar atelectasis CXR 04/13-moderate pleural effusion left with consolidation of the left lung Pulmonology following Dr. Estrada -Patient has a 6.0 Shiley may also need bronchoscopy to require a larger size trach or intubation. 04/13 CT guided thoracentesis scheduled emergently as discussed with Dr. Estrada - 600cc removed (right) 04/14-tracheostomy up sized to 8.0 Shiley [address] education professor [address]. Estrada at bedside CV: Severe sepsis - resolved. Systolic heart failure likely chronic with ejection fraction 20-25% Hyperlipidemia History of hypertension Mild TR Sinus tachycardia Elevated troponin likely type II demand ischemia Restarted on Levophed on 03/09 for following intubation, titrated off after starting hydrocortisone. Started hydrocortisone stress dose on 03/14 (as patient has been on steroids and was just tapered off on 03/09.) Patient has on hypotensive twice when attempting to wean off stress dose hydrocortisone in the past. Currently on atenolol 25 mg twice a day. Continue amlodipine 5 mg daily As needed Nitropaste, labetalol and hydralazine for hypertension Atorvastatin 10 mg by mouth daily for dyslipidemia. Troponin 0.[address]-T changes. 2-D echocardiogram 01/11 revealed EF 20-25%. Mild TR. Pulmonary arterial pressures were normal around 20 Troponin 6.55 on 03/02. Currently on furosemide 20 mg IV twice a day per nephrology GI: Large right retroperitoneal hematoma Erosive esophagitis Adematous/hyperplastic colon polyps Severe acute protein calorie malnutrition Nausea/vomiting - resolved. Diarrhea Gastritis Diverticulosis Internal and external hemorrhoids Hiatal hernia Elevated lipase 02/27 CT chest/abdomen and pelvis - 9.4 x 7.5 renal and 16 x 12 cm right psoas muscle hematoma. Fluid around liver and spleen. Right-sided nephrolithiasis CTA abdomen 02/28 - possible blushing around iliac/lumbar vessels Discussed with IR. s/p attempted embolization CT abdomen and pelvis 02/10 atrophic left kidney. Bilateral inguinal hernias fat- containing. Nonobstructing 12 mm right kidney stone repeat CT abd/pelvis did not show evidence of obstruction. patient clinically has been having diarrhea (c. diff negative 02/19). also with nausea/vomiting of unclear etiology. EGD/Colonoscopy-02/22/17 showed gastritis esophagitis, hiatal hernia, diverticulosis and multiple polyps in descending colon and sigmoid which were snared biopsied. Biopsy pending Dr. Lewis consulted for intervention if needed for elevated IAP. will continue to check as needed Status post PEG tube placement by consulted Previously on 1800-calorie ADA diet to this readmission to ICU, consult dietary for tube feeds Lansoprazole 30 mg twice a day for GI prophylaxis FEN/RENAL: Acute kidney injury in the setting of Chronic kidney disease stage 3-4 History of uric acid kidney stones with prior stent BPH Nonfunctioning left kidney Acute intravascular volume overload Hypokalemia Sloan placed due to urinary retention and worsening creatinine Maintain Sloan secondary to urinary retention Monitor intake and output q1hr. Monitor electrolytes. RIOS/SPEP negative. 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 Recommended nephrostomy tube if obstruction Nephrology consulted, hemodialysis per nephrology. Making urine. Due to acute illness holding tamsulosin 0.4 mg by mouth daily for BPH ICU electrolyte replacement protocol Last IHD was 03/22 ID: Septic shock- resolved. Abscess and Suppurative thrombophlebitis left upper extremity MSSA bacteremia Klebsiella UTI ESBL positive Acute aspiration pneumonia/HCAP Previously treated with Bactrim, ertapenem, intermittent vancomycin, nafcillin Blood cultures 2, UA ESBL positive Klebsiella UTI Sputum 03/14 - Pseudomonas came back resistant to imipenem, Stenotrophomonas maltophilia Repeat blood cultures 2 and sputum 03/08 pending. Urine negative. Antibiotics per ID ID following-Dr. Puente HEME: Acute blood loss anemia DVT, bilateral posterior tibial vein, IVC filter Septic thrombophlebitis with occlusive thrombus mid cephalic and basilic vein side Received 10 PRBC, 14 FFP, 2 platelets, 1 cryo-02/28 Received 3 units PRBCs Serial hemoglobins every 6 hours Recheck coags Ultrasound 01/23/17 - Bilateral lower extremity with occlusive posterior tibial vein DVTs. Heparin was initially started for DVT but was placed on hold due to LP with suspected traumatic tap. Currently holding full anticoagulation with enoxaparin 100 mg IV twice a day due to anemia as of 02/26 IVC filter was placed 01/25/17. Ultrasound LUE 02/10 occlusive thrombus mid cephalic vein, basilic vein.s. Transfuse 3 units PRBCs 02/27 Transfuse 2 units PRBCs 03/01. Transfused 1 unit PRBCs on 03/14 ENDO: Diabetes mellitus Hypoglycemia History of prior adrenal insufficiency with shock Gout EGD colonoscopy completed 02/22. gastritis and esophagitis, colon polyps Started Hydrocortisone 100 mg every 8 hours 02/21/17 (Recent high dose steroids use now hypotensive, hypoglycemic), steroids had been tapered off. Resumed stress dose steroids on 03/16 as patient back on Levophed for pressor support after intubation. Continue at 50 mg IV every 6 hours Accu-Cheks to maintain euglycemia Novulin R every 4 hours. Low Regimen Currently on insulin detemir 25 units twice a day for hyperglycemia MSK: Right distal ulna fracture. Recommended nonoperative management. PROPH: Lansoprazole 30 mg twice a day twice a day for stress ulcer prophylaxis. Has IVC filter. Therapeutic enoxaparin was placed on hold for retroperitoneal hematoma ACCESS: right IJ CVL placed 03/03-03/20. A left IJ hemodialysis catheter placed 03/01 - 03/23. Left femoral A line placed 03/14 - discontinued 03/19 Dispo: Discussed with ACCOUNT SERVICE REPRESENTATIVE at bedside Patient waiting for transfer out of ICU since 04/17. Consult placed to hospitalist service on 04/17. Hospitalist service to take over patient care when patient transferred out of ICU. Problem Qualifiers (1) Aspiration pneumonia: (2) DVT (deep venous thrombosis): Qualified Codes: I82.443 - Acute embolism and thrombosis of tibial vein, bilateral (3) Acute renal failure: Qualified Codes: N17.9 - Acute kidney failure, unspecified (4) Diabetes mellitus: (5) Gout: Devin Puente MD Apr 18, 2017 13:21
--- NOTE | 2017-04-18 16:40 | HHI.GIFU ---
Subjective Remarks Reconsulted for clogged PEG tube. This was placed on (03/15/17). Went to change, but pt was noted to have a long tube and the clogged part seemed to be very distal. Cut tube proximal to clogged area (~2 inch), flushes without difficulty. Nurse reports patient was down graded to full liquids by speech therapy and is asking about TF rate. (Nena Driver) Objective Vitals I&O Vital Signs Date Time Temp Pulse Resp B/P (MAP) Pulse Ox O2 Delivery O2 Flow Rate FiO2 04/18/17 09:36 100 T-piece 6.00 40 04/18/17 04:00 98.3 92 20 104/64 (77) 04/18/17 04:00 92 04/18/17 00:00 98.1 84 21 108/66 (80) 97 04/18/17 00:00 84 04/17/17 20:00 98.1 86 21 106/73 (84) 96 04/17/17 20:00 86 04/17/17 19:59 97 T-piece 5.00 40 04/17/17 19:00 97 T-Piece 40 04/17/17 18:00 95 I/O 04/17/17 04/17/17 04/17/17 04/18/17 04/18/17 04/18/17 07:00 15:00 23:00 07:00 15:00 23:00 Intake Total 728 ml 1000 ml 704 ml Output Total 1700 ml 1600 ml 1950 ml Balance -972 ml -600 ml -1246 ml IV Total 200 ml 100 ml Tube Feeding 128 ml 200 ml 104 ml Other 600 ml 600 ml 500 ml Output Urine Total 1700 ml 1600 ml 1950 ml Stool Total 0 ml Laboratory Date/Time Source Procedure Growth Status 04/16/17 12:10 Blood Peripheral Aerobic Blood Culture - Preliminary NO GROWTH IN 2 DAYS Resulted 04/16/17 12:10 Blood Peripheral Anaerobic Blood Culture - Preliminary NO GROWTH IN 2 DAYS Resulted 04/13/17 16:30 Fluid Pleural Fluid Fungal Smear - Final NO FUNGAL ELEMENTS SEEN. Resulted 04/13/17 16:30 Fluid Pleural Fluid Fungal Culture Pending Resulted 02/17/17 05:55 Stool Stool Stool Occult Blood (GREGORY) - Final HEMOCCULT POSITIVE Complete 04/12/17 23:45 Sputum Endotracheal Gram Stain - Final Complete 04/12/17 23:45 Sputum Culture - Final Pseudomonas Aeruginosa Complete 04/13/17 00:00 Urine Catheterized Urine Legionella Antigen - Final PRESUMPTIVE NEGATIVE FOR LEGIONELLA P... Complete 02/11/17 09:10 Abscess Arm Acid Fast Stain - Final NO ACID FAST BACILLI SEEN Complete 02/11/17 09:10 Abscess Arm Mycobacterial Culture - Final NO GROWTH IN 6 WEEKS Complete Imaging Last Impressions Chest X-Ray 04/17/17 0000 Signed Impressions: Service Date/Time: Monday, April 17, 2017 03:40 - CONCLUSION: Mild left effusion and possible accompanying atelectasis or consolidation at the left base Angelo Manzo MD Thoracentesis 04/13/17 1054 Signed Impressions: Service Date/Time: Thursday, April 13, 2017 15:26 - CONCLUSION: Uncomplicated CT-guided right thoracentesis. Candido Mendoza Jr., MD Chest CT 04/12/17 1558 Signed Impressions: Service Date/Time: March 17:51 - CONCLUSION: 1. Slight increase in size of bilateral effusions and basilar atelectasis, left greater than right compared with February 27. Tracheostomy in good position. Trace Holloway MD Renal Ultrasound 04/02/17 0000 Signed Impressions: Service Date/Time: Sunday, April 02, 2017 16:59 - CONCLUSION: Limited exam with the left kidney being unable to be evaluated in the bladder not distended. There do appear to be multiple shadowing stones at the right kidney without hydronephrosis. Angelo Manzo MD Wrist X-Ray 03/27/17 0000 Signed Impressions: Service Date/Time: Monday, March 27, 2017 13:21 - CONCLUSION: 1. No acute fracture is identified. A portion of the previously documented distal ulna fracture remains visualized. 2. 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 Angelo Allen MD Aortography 02/28/17 0000 Signed Impressions: Service Date/Time: Tuesday, February 28, 2017 08:01 - CONCLUSION: 1. Active hemorrhage from distal right lateral sacral and iliolumbar branches successfully coil and Gelfoam embolized, as above. Juan Bhakta MD Abdomen/Pelvis CT 02/28/17 0000 Signed Impressions: Service Date/Time: Tuesday, February 28, 2017 06:51 - CONCLUSION: 1. The right retroperitoneal hematoma has increased in size, as above. There are 2 serpiginous arterially enhancing structures visualized, one in the right psoas muscle and another extending into the hematoma at the right iliac fossa. These could represent sites of continued active bleeding. 2. Stable moderate size left and small right pleural effusion with associated compressive atelectasis. 3. Stable small volume of free fluid in the abdomen and pelvis. There is also anasarca. The findings concerning the retroperitoneal hematoma were discussed with Dr. Aguiar via telephone at approximately 7: 10 AM on 02/28/2017. Angelo Allen MD Abdomen X-Ray 02/26/17 0000 Signed Impressions: Service Date/Time: Sunday, February 26, 2017 14:52 - CONCLUSION: 1. Nonobstructive bowel gas pattern. Juan Bhakta MD Upper Extremity Ultrasound 02/10/17 0000 Signed Impressions: Service Date/Time: Friday, February 10, 2017 18:46 - CONCLUSION: Occlusive thrombus in the cephalic and basilic veins. Benjamin Person MD Lung Scan- Nuclear Medicine 02/10/17 0000 Signed Impressions: Service Date/Time: Friday, February 10, 2017 22:17 - CONCLUSION: Low probability pulmonary embolism. Candido Patton MD Head CT 02/10/17 0000 Signed Impressions: Service Date/Time: Friday, February 10, 2017 23:51 - CONCLUSION: Negative noncontrast CT brain. Candido Patton MD Lumbar Puncture Fluoroscopy 02/01/17 0000 Signed Impressions: Service Date/Time: January 09:35 - CONCLUSION: Uncomplicated fluoroscopically guided lumbar puncture. CSF was clear. Nabeel Peralta MD Head Magnetic Resonance Angiography 01/27/17 0000 Signed Impressions: Service Date/Time: Friday, January 27, 2017 10:33 - CONCLUSION: No intracranial vascular abnormality is identified. There is no aneurysm visualized. Angelo Allen MD IVC Filter Placement X-Ray 01/25/17 0000 Signed Impressions: Service Date/Time: January 10:29 - CONCLUSION: Uncomplicated inferior vena cava filter placement as above. Yung Fowler MD Thoracic Spine MRI 01/24/17 Signed Impressions: Service Date/Time: Tuesday, January 24, 2017 22:29 - CONCLUSION: 1. Mild degenerative spondylosis most prominently at T11-L1 with slight effacement of the anterior thecal sac and left lateral recess. No significant neural foraminal stenosis. 2. No acute fracture. Juan Bhakta MD Lumbar Spine MRI 01/23/17 Signed Impressions: Service Date/Time: Monday, January 23, 2017 17:01 - CONCLUSION: 1. At L4-5 is a broad-based disc protrusion with severe central canal and lateral recess stenosis and flattening of the exiting right L4 nerve root. 2. L5-S1 there is a disc protrusion and moderate stenosis with flattening of the exiting L5 nerve roots bilaterally. 3. At L3-4 there is a moderate to severe central stenosis and lateral recess stenosis with mild foraminal stenosis. 4. No acute fracture or spondylolisthesis. Trace Holloway MD Lower Extremity Ultrasound 01/23/17 Signed Impressions: Service Date/Time: Monday, January 23, 2017 09:53 - CONCLUSION: Bilateral focal lower extremity DVT involving the posterior tibial veins. Angelo Garrido MD Cervical Spine MRI 01/23/17 Signed Impressions: Service Date/Time: Monday, January 23, 2017 17:01 - CONCLUSION: 1. Multilevel cervical spine degenerative changes as above. 2. Mild degrees of spinal stenosis at C3/C4-C6/C7. No cord compression or cord signal abnormality. 3. Age indeterminate left paracentral/foraminal disc protrusion at C6/C7. 4. Multilevel foraminal stenosis, most severe on the left at C6/C7. Please see individual levels above. 5. No fracture or subluxation of the cervical spine. Angelo Garrido MD Brain MRI 01/23/17 Signed Impressions: Service Date/Time: Monday, January 23, 2017 17:01 - CONCLUSION: 1. No acute stroke or other acute intracranial abnormality demonstrated. 2. Moderate severity chronic white matter changes, nonspecific but most likely related to chronic small vessel disease. 3. Few scattered tiny lacunar infarcts of the brainstem. 4. Given the findings are not entirely specific, clinical evaluation for possible multiple sclerosis recommended. Angelo Garrido MD Knee X-Ray 01/22/[id number] Signed Impressions: Service Date/Time: Sunday, January 22, 2017 21:17 - CONCLUSION: 1. Evidence of moderate to large joint effusion. 2. No acute fracture or malalignment. 3. Mild 3 compartment osteoarthritic change. eBnjamin Person MD Hip and Pelvis X-Ray 01/22/[id number] Signed Impressions: Service Date/Time: Sunday, January 22, 2017 21:10 - CONCLUSION: 1. Mild to moderate degenerative change of both hips with no acute fracture or malalignment. There is flattening and remodeling of the right humeral head. Benjamin Person MD Physical Exam HEENT: Normocephalic; atraumatic; no jaundice. CHEST: Resp even/unlabored, tracheostomy, t bar. CARDIAC: Monitor SR. ABDOMEN: Soft, obese, no hepatosplenomegaly; bowel sounds are present in all four quadrants. Small umbilical hernia, reducible. PEG tube site without redness, swelling, drainage. Flexiseal with liquid stool EXTREMITIES: BUE edema. POULTRY PROCESSING SUPERVISOR: Lethargic. (Nena Driver) Assessment and Plan Plan ASSESSMENT: - Reconsulted for clogged PEG tube. S/P tracheostomy. S/P EGD with PEG tube placement (03/15/17). Site without redness or swelling. Pt noted to have long tube with a clogged portion at the most distal area. Cut tube proximal to clog, ~2 inches off. Now flushing without difficulty. - Dysphagia, Malnutrition. Nurse reports that his diet was downgraded to full liquids. TF going at 10cc/hr. Assembler [employer] following, recommends Glucerna 1.5 with goal rate of 65 ml/hr - Anemia, Hemoccult positive stools.S/P EGD/Colonoscopy (02/22/17)----> 1. Gastritis antrum-biopsy esophagitis distal esophagus-biopsy duodenum normal-biopsy 2. Retroflexed views revealed a hiatal hernia 1. Diverticulosis sigmoid, descending polyp hepatic flexure-two--6 mm sessile-cold snare polypectomy with complete removal another 5 mm-cold biopsy with complete removal polyp sessile descending colon-7 mm-cold snare polypectomy with removal sigmoid-6 mm -cold snare polypectomy with complete removal random biopsies from descending colon- 2. Retroflexed views revealed internal hemorrhoids 3. Retroflexed views revealed small internal hemorrhoids 4. Revealed external hemorrhoids. Pathology severe acute ulcerative esophagitis, spores suggestive of bowen at base of ulcer, negative for intestinal metaplasia, dysplasia, mucosal congestion, duodenal mucosa without significant histopathologic abnormality, adenomatous polyp, descending colon polyp fecal material, no viable tissue present, hyperplastic polyp, colonic mucosa without significant histopathologic abnormality. HH stable 9.1/28.3. - Abdominal pain. CT abdomen and pelvis without iv contrast (02/19/17)---> areas of calcification seen in the right renal collecting system, right renal pelvis, adn proximal ureter. these appear to layer and be dependent suggesting likely to represent smaller areas of milk of calcium or small stones. There is mild dilatation of th eright renal collecting system and right ureter. A definite obstructing stone at this time is not seen. A small amount of air within hte urinary bladder. This should be correlated with any recent catheterization. Mild bilateral pleural effusions with accompanying atelectasis or consolidation at the left base. the consolidation was present previously. Prominent degenerative change in the lumbar spine and at the hip joints bilaterally. IMPROVED. - Respiratory Failure. S/P tracheostomy. T bar - DVT LE, bilateral. S/P IVC filter. Full anticoagulation on hold per attending. - Transverse myelitis, per attending. Per ID - LUE Abscess. S/P I&D with excision of left cephalic vein segment. - BREEZY, improved. Per renal. - HTN, DM, per attending. PLAN: - Glucerna 1.5 with goal rate of 65 ml/hr - Diet per ST recommendations - GI will sign off, please reconsult as needed - Pt seen and examined by Dr. Shepard and myself and this note is written on her behalf (Nena Driver) Nena Driver Apr 18, 2017 16:40 Jerica Shepard MD Apr 18, 2017 20:07
--- NOTE | 2017-04-18 16:56 | HHI.HCPN ---
Reason for visit a. To assist with evaluation and management of symptoms including: shortness of breath, pain, debility b. To assist medical decision maker(s) with: better understanding of current medical conditions; weighing benefits/burdens of medical treatment options; making medical treatment decisions. Subjective/Interval History Patient seen in his room, in bed. Patient is awake, watching television. Patient complaining of pain to his lower extremities. Patient communicating by mouthing words. Patient complaining of pain to his lower extremities. He states that he exercised a lot today. Patient remains on TPierce 40% with O2 saturation in the high 90s. Speech therapy consulted. Patient passed swallow evaluation. Patient now on a pureed diet. Patient is afebrile. SBP low 100s. PEG tube clogged today. TF was placed on hold. GI PANTOGRAPH OPERATOR unclogged PEG. TF to be resumed with goal set at 65ml/ hr. No recent labwork and imaging. Case discussed with bedside ROHINI Dumont. Advance Directives Living Will: Never completed Health Care Surrogate: Never completed Durable Power of Motor Operator: Never completed Advance Directive Specifics Health Care Surrogate(s): Healthcare proxys- Son-Davie Kerr - ; Son-Arnel Kerr- -cell -home Telephone call to Davie Kerr, patient`s son with no response. Telephone conversation with patient`s son Arnel Kerr via telephone- called home telephone. Updated him on patient`s medical status. Discussed his role as patient`s health care proxy and he states that since Davie lives here closer to patient he is alright with Davie making medical decisions for their father and that he trusts that Davie will make the right decisions. When asked if he wanted to opt out of medical decision making, he stated that he may have to do that and allow Davie to make medical decisions and hopes that Davie will keep him informed. Explained to Arnel that his father is critically ill. Discussed code status, and explained to him that Davie wanted patient to be a full code. Again, Arnel stated that he trusts whatever decision his brother has and is making for their father. Telephone conversation with Deb guerin` s sister, Updated her on patient`s current medical status and planned procedures. . Documented care wishes: No known documented care wishes have been completed. . Objective Vital Signs Date Time Temp Pulse Resp B/P (MAP) Pulse Ox O2 Delivery O2 Flow Rate FiO2 04/18/17 09:36 100 T-piece 6.00 40 04/18/17 04:00 98.3 92 20 104/64 (77) 04/18/17 04:00 92 04/18/17 00:00 98.1 84 21 108/66 (80) 97 04/18/17 00:00 84 04/17/17 20:00 98.1 86 21 106/73 (84) 96 04/17/17 20:00 86 04/17/17 19:59 97 T-piece 5.00 40 04/17/17 19:00 97 T-Piece 40 04/17/17 18:00 95 Intake & Output 04/18/17 04/18/17 07:00 19:00 Intake Total 704 ml Output Total 1950 ml Balance -1246 ml IV Total 100 ml Tube Feeding 104 ml Other 500 ml Output Urine Total 1950 ml Stool Total 0 ml Physical Exam CONSTITUTIONAL/GENERAL: This is an ill-looking patient, in no acute distress or discomfort, awake and yelling for someone. TUBES/LINES/DRAINS: PEG tube, #8Tracheostomy on T Bruce, PIVsonia, FC SKIN: No jaundice. Ecchymoses on upper extremities. Sacral pressure wound and L heel pressure injury per EMR. Wound to anterior neck - tracheostomy insertion area with a foam dressing. Not diaphoretic. HEAD: Atraumatic. Normocephalic. EYES: Pupils equal and round, slight reaction.No scleral icterus. No injection or drainage. Fundi not examined. ENT: Trached. Nose without bleeding or purulent drainage. Moist oral mucosa. NECK: Trachea midline. #8 Tracheostomy midline- currently on TPierce 40% - tracheostomy insertion area with a foam dressing. CARDIOVASCULAR: Regular rate and rhythm without murmurs, gallops, or rubs. No JVD. RESPIRATORY/CHEST: Symmetrical, rhonchi to auscultation. Small amount of yellowish colored secretions around trach . Breath sounds equal bilaterally. Patient is on TPierce 40% GASTROINTESTINAL: Abdomen soft, non-tender, nondistended. No guarding. Bowel sounds present. TF Nepro infusing @ 30ml/hr via PEG. Liquid stool GENITOURINARY: Without palpable bladder distension. Sloan catheter in with clear urine. MUSCULOSKELETAL: Gout tophi to fingers, knees, elbows and both ankles. No edema to BUE, trace edema to BLE NEUROLOGICAL: Trached. Patient awake, alert. Followed command with all 4 extremities. PSYCHIATRIC: No obvious anxiety/depression. no apparent hallucinations or other psychotic thought process. . Diagnostic Tests Laboratory Laboratory Tests Test 04/17/17 05:10 White Blood Count 14.4 TH/MM3 (4.0-11.0) Red Blood Count 3.30 MIL/MM3 (4.50-5.90) Hemoglobin 9.1 GM/DL (13.0-17.0) Hematocrit 28.3 % (39.0-51.0) Mean Corpuscular Volume 85.8 FL (80.0-100.0) Mean Corpuscular Hemoglobin 27.6 PG (27.0-34.0) Mean Corpuscular Hemoglobin Concent 32.2 % (32.0-36.0) Red Cell Distribution Width 16.8 % (11.6-17.2) Platelet Count 304 TH/MM3 (150-450) Mean Platelet Volume 8.5 FL (7.0-11.0) Result Diagram: 04/17/17 0510 04/14/17 0604 Microbiology Microbiology Date/Time Source Procedure Growth Status 04/16/17 12:10 Blood Peripheral Aerobic Blood Culture - Preliminary NO GROWTH IN 2 DAYS Resulted 04/16/17 12:10 Blood Peripheral Anaerobic Blood Culture - Preliminary NO GROWTH IN 2 DAYS Resulted 04/16/17 12:05 Blood Peripheral Aerobic Blood Culture - Preliminary NO GROWTH IN 2 DAYS Resulted 04/16/17 12:05 Blood Peripheral Anaerobic Blood Culture - Preliminary NO GROWTH IN 2 DAYS Resulted Procedures 01/25/2017- Retrievable IVC Filter placement 01/26/17-lumbar puncture with fluoroscopy-by interventional radiology 02/01/17- lumbar puncture fluoroscopy by interventional radiology 02/10/17- Endotracheal Intubation 02/10/17-left IJ central venous line placed 02/10/17-left femoral arterial line placed 02/11/17-Diagnostic and therapeutic bronchoscopy with bronchoalveolar lavage 02/11/17-Left upper extremity incision and debridement with excision of septic cephalic vein 02/13/17- Extubated 02/20/17- endotracheal intubation 02/20/17- Left subclavian central line placement 02/20/17-Right radial A-line placement 02/22/17-EGD/colonoscopy 02/28/17-right radial a line 02/28/17- Endotracheal intubation 02/28/17- right sided introducer catheter placement 02/28/17- Right IJ central line placement 02/28/17-Right chest tube placement 02/28/17- Embolization of inferior and superior sacral branches of right internal iliac artery 03/01/17- Hemodialysis access catheter 03/03/17-Right IJ central line placement 03/11/17-Extubated 03/13/17- Endotracheal intubation 03/14/17-Tracheostomy placement 03/15/17-PEG tube placement 04/13/17-thoracentesis right 600 cc removed 04/13/17-Tracheostomy up-sized to #8 Shiley . Assessment and Plan Disease Oriented Problem List: (1) Acute respiratory failure (2) Septic shock (3) Aspiration pneumonia (4) Acute renal failure (5) CKD (chronic kidney disease) stage 3, GFR 30-59 ml/min (6) Cardiomyopathy (7) DVT of lower extremity, bilateral (8) Thrombophlebitis arm (9) Diabetes mellitus (10) Gout (11) HTN (hypertension) (12) Hyperlipidemia Symptom Scale: (1) Shortness of breath 0-10 Scale: Unable to quantify Comment: Trach downsized to #6. Patient back on ventilator. . (2) Debility 0-10 Scale: Unable to quantify Comment: Progressive. . (3) Pain 0-10 Scale: Unable to quantify Comment: History of falls, gout, arthritis, and currently bedbound. . Pertinent Non-Medical Issues Psychosocial:Patient was born and raised in [place], [place]. Patient was once for 20 years, now and has 2 adult sons. 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 He recently resigned due to failing health. Spiritual: No sikh affiliation Legal: Per [place] statutes, in the absence of written advanced directives healthcare proxy decision making falls to the patient's 2 adult children. Patient's son (Davie) lives locally and wishes to participate in the role of the healthcare proxy decision maker. Palliative care has attempted to contact Arnel, has not call back. Patient`s sister Deb and patients brother verbalized that they have been updating Arnel on patient`s medical status. Ethical issues impacting care: No known ethical issues impacting care at this time. . Important Contacts Son-Davie Kerr - Son-Arnel Kerr- -cell -home Sister-Deb Curry . Prognosis Mr Kerr is a 62 years old male with a past medical history of hypertension, asthma, diabetes, hyperlipidemia, chronic kidney disease and gout. Patient presented to the ED on 01/22/17 complaining of bilateral knee and right arm pain after a mechanical fall 4 or 5 days prior to coming to the ER. Clinical course complicated with increased weakness leading to numerous diagnostic work ups for possible transverse myelitis, DVTs, retroperitoneal hematoma, aspiration pneumonia, intubation x 4 times, septic and hemorrhagic shock requiring support with pressors and multiple pRBC, FFP transfusions as well as platelets and cryo , renal failure requiring hemodialysis and sacral wound Given ongoing comorbidities, and prolonged hospitalization, patient remains at risk for further complications, deterioration and decline. Code Status: Full Code Plan PLAN: Legal decision maker: Patient is currently trached on TPierce and is not able to make any medical decisions for himself at this time. Patient has 2 adult sons Davie Kerr and Arnel Kerr. According to [place] Statute, his two aforementioned sons will serve as his health care proxys. Patient`s son Davie is acting in the role of HCP decision maker independently at this time given that he is the one who is reasonably available for consultation. Goals: 04/17/17- Remain Aggressive. SSI pending-Case management following case. No changes in goals. CODE STATUS: Full Code SYMPTOMS: * Shortness of breath: Multifactorial. Patient has had aspiration pneumonia. Patient has been intubated 4 times this hospitalization. Patient has a tracheostomy. On duonebs. Patient is also on Hydrocortisone 50mg q 6 hours. Rope Silica Machine Operator following. Trach up-sized to #8. Now on Tpierce 40%- s/p CT guided thoracentesis, 600ml removed. Tobramycin nebs ordered. * Pain: Patient presented initially complaining of pain to right wrist and bilateral knees after a mechanical fall. Patient has a history of gout, arthritis, multiple falls and is currently bedbound. Patient on Oxycodone 5mg q 4 hours ATC. Patient on Hydrocortisone.Patient complaining of pain to bilateral lower extremities. * Debility: Progressive. Patient has had decline in his health for the past 4 months, including progressively increased weakness and difficulty ambulating and prolonged hospitalization with multiple setbacks. Patient remains at high risk for further physical deconditioning and debility. PT and OT following with patient. PT and OT following. Patient will benefit from getting OOB to a stretcher chair . PT, ST and OT following. Palliative care will continue to follow the patient during hospital course as condition evolves, to assist patient/decision-maker with understanding of their medical conditions, weighing benefits/burdens of treatment options, for clarification of goals of treatment. Additionally will assist with any symptoms of palliative concern. . Attestation To help prompt me to consider important information that might be impacting today's encounter and assessment, information from prior notes written by myself or my colleagues may have been "brought forward" into today's note. My signature on this note, however, is an attestation that I personally performed the exam, history, and/or decision-making noted today, and, unless otherwise indicated, the interactions with patient, family, and staff as well as the review of records all occurred today. I also attest that the listed assessment and stated plan reflect my best clinical judgment today based on the combination of historical information, prior notes, and today's exam/ interactions. When time spent is documented, it refers only to time spent today by the signer, or if indicated, combined time spent today by collaborating physician/nurse practitioner. Aftab Cartwright Apr 18, 2017 16:56
[2017-04-18] MEDS: ATORVASTATIN 10 MG TAB PO SCH (21:00)
[2017-04-19] VITALS (8 sets, daily range): BP systolic 82–121; BP diastolic 50–67; PULSE 101–117; RESP 20–33; TEMP 97.7–100.9; O2SAT 94–100
[2017-04-19] MEDS: oxyCODONE HCL ORAL CONC 5 MG/0.25 ML SYRINGE PO SCH ×7 (02:15→21:00)
[2017-04-19] MEDS: CEFTOLOZANE-TAZOBACTAM INJ 1,500 MG in SODIUM CHLORIDE 0.9% INJ 100 ML IV SCH ×3 (02:17→16:35)
[2017-04-19] MEDS: FREE WATER G-TUBE SCH ×5 (05:46→22:19)
[2017-04-19] MEDS: HYDROCORTISONE 10 MG TAB PO SCH ×2 (05:46→17:15)
[2017-04-19] MEDS: INSULIN ASPART SUPPLEMENTAL SCALE SQ SCH ×4 (08:00→20:48)
[2017-04-19] MEDS: CHLORHEXIDINE 0.12% (ORAL KIT) 15 ML CUP MT SCH ×2 (08:00→20:00)
[2017-04-19] MEDS: SODIUM CHLORIDE 0.9% FLUSH 10 ML FLUSH IV FLUSH SCH ×3 (08:12→21:01)
[2017-04-19] MEDS: LACTOBACILLUS ACIDOPHILUS TAB PO SCH ×3 (08:16→17:14)
[2017-04-19] MEDS: QUEtiapine FUMARATE 25 MG TAB PO SCH (08:16)
[2017-04-19] MEDS: TAMSULOSIN HCL 0.4 MG CAP PO SCH ×2 (08:16→21:01)
[2017-04-19] MEDS: POTASSIUM CHLORIDE 25 MEQ EFFERVESCENT TAB PO SCH ×2 (08:16→21:01)
[2017-04-19] MEDS: FUROSEMIDE 40 MG/4 ML VIAL IV PUSH SCH ×2 (08:17→17:15)
[2017-04-19] MEDS: COLLAGENASE OINT 30 GM TUBE TOPICAL SCH (08:17)
[2017-04-19] MEDS: INSULIN DETEMIR 100 UNITS/ML VIAL SQ SCH ×2 (08:17→21:02)
[2017-04-19] MEDS: LANSOPRAZOLE SOLUTAB 30 MG TAB NG SCH ×2 (08:17→21:01)
[2017-04-19] MEDS: ATENOLOL 25 MG TAB PO SCH ×2 (08:17→21:00)
[2017-04-19] MEDS: CHOLESTYRAMINE 4 GM PACKET G-TUBE SCH ×2 (08:17→21:01)
[2017-04-19] MEDS: RESP: TOBRAMYCIN SULFATE 80 MG/2 ML NEB NEB SCH ×2 (08:20→20:20)
[2017-04-19] MEDS: RESP: ALBUTEROL 2.5 MG/IPRATROPIUM 0.5 MG NEB (PRN) NEB (09:21)
[2017-04-19] MEDS: ALPRAZolam 0.25 MG TAB PO PRN (10:09)
--- NOTE | 2017-04-19 12:47 | HHI.CCPN ---
Subjective Remarks/Hospital Course Date of admission: 01/22 Date of critical care medicine consult 02/10 due to acute hypoxemic respiratory failure requiring emergent intubation 62-year-old male with a past medical history of hypertension, hyperlipidemia, diabetes mellitus, gout, uric acid kidney stones, kidney disease of unknown stage who originally presented to [facility] emergency department on 01/22 after a fall in which he sustained a right distal ulna fracture. He had been experiencing a gradual primarily lower extremity weakness as well as upper extremity weakness that was progressive. Neurology consult was obtained. MRI revealed no acute stroke. He had multifocal white matter changes. Tiny lacunar infarcts of the brainstem. Lumbar MRI report states L4-L5 disc protrusion with cetnral canal stenosis. Dr. Blackwell evaluated and states no cord compression on MRI C/T spine and recommended nonoperative management. Symptoms were felt to be consistent with transverse myelitis and he underwent Solumedrol 250 mg IV q6 hours 01/27-02/02. He also was found to have occlusive thrombus in the bilateral posterior tibial veins. Heparin was being avoided because he had traumatic lumbar puncture on 01/26 and 02/01. IVC filter was placed 01/25. He was undergoing physical therapy, reportedly making some improvements with plan to eventually discharged home with his son (max assist standing, and bed to chair per PT note). Apparently he had some vomiting the evening of 02/09 and additional vomiting on 02/10. He had a fever 102.8 on 02/09. Last recorded bowel movement was 02/03. Tonight he had acute onset of severe hypoxemia and respiratory distress. [facility] called and he was brought emergently to [facility] where his sats were 64% on 100% nonrebreather with mean arterial pressure 44. He was emergently intubated, CVL and art line placed. He is in septic shock. SUBJ: 02/11: Patient remains intubated sedated, critically ill. FiO2 reduced to 80% after increasing PEEP to 12. In severe septic shock Levophed at 16 mcg/m, vasopressin at 0.04 international units. D/W vascular surgery Dr. Enciso. He performed bedside Left upper extremity incision and debridement and excision of septic cephalic vein. 02/12: Remains intubated sedated profoundly septic, in shock on vasopressin and 7 mcg/min Levophed. FiO2 has improved to 45%, WBC count remains elevated with 20 ,000 white count significant left shift. Slight improvement in creatinine 2.9 urine output 750 ml 24 hours. 2-D echo shows LV ejection fraction 20-25%, no vegetation reported. Blood cultures 4 staph aureus. Wound culture pending 02/13: Remains critically ill but stable to improving. WBC count is down to 16, creatinine improving to 2.36. Off all pressors. Urine output also improving. 1.5L in 24 hours 02/14: Extubated 02/13. Tolerating well. WBC now down to 12.8. Creat improving 2.3 to 2. UO 3.4L. remains off all pressors. Was started on Precedex yesterday night for agitation, currently on 0.5 g per KG per hour. Chest x-ray shows left more than right air space disease 02/20/17 Re consult: 62-year-old male who was originally admitted for lower extremity weakness and found to have what was thought to be possible transverse myelitis. His hospital course his included a healthcare associated pneumonia, septic thrombophlebitis, DVT. He was most recently in the hospital floor where he had significant nausea and vomiting and diarrhea. His C. difficile test was recently negative. However, he has experienced worsening acute on chronic renal failure, hypotension, tachycardia, and severe hypoxemia. He did have a bout of vomiting earlier today, and his hospitalist attending suspects that he may have aspirated. He arrives by rapid response to the ICU with a nonrebreather in place in severe respiratory distress with SPO2 of 85%. I emergently intubate the patient, see separate procedure note for details. At this point the patient was hypotensive and tachycardic. He does have a history of an EF of 20%, however clinically he appears in florid septic shock. I placed central line and arterial line started vasopressors and gentle IV fluid resuscitation with 1 L of LR. Patient today was empirically broadened to vancomycin and Zosyn from his oxacillin which was initially treating MSSA bacteremia. He is recultured. Critical-care medicine is consulted to evaluate and manage his worsening multiorgan system failure and decompensated septic shock 02/21: Patient remains intubated sedated. Becomes anxious tachypnea on sedation lightening. Chest x-ray shows mild left lower lobe infiltrate. WBC count is slightly improved today from 23.2 t0 21. C Diff negative. UO adequate, creat slightly worsening. 1.57 today 02/22: Remains intubated sedated tolerated CPAP yesterday, plan is for EGD/ Colonscopy. WBC count back to normal. UO adequate. Creat stable 02/23: Tolerating CPAP trials following commands. Will do a spontaneous breathing trials. Status post EGD colonoscopy yesterday -Gastritis, esophagitis. Diverticulosis and multiple polyps. Urine output adequate but creatinine increasing to 1.7 with patient requiring multiple straight catheterization. We'll reinsert Sloan. 02/24: Breathing comfortably 24 hours after extubation. Protects airway well. 02/25: Excoriate bottom, will place rectal FMS. Start pureed diet. 02/26: Afebrile. Complaining of nausea and vomiting this afternoon. Increased stool output. Continue potassium replacement today. 02/27: 10 PM overnight, acutely hypotensive. Received 3 units PRBCs. Antibiotic coverage broadened to piperacillin/tazobactam, cortisol and 1 dose of vancomycin. Oxacillin drip currently on hold. Symptomatically, patient continues to vague abdominal pain/nausea vomiting which is unchanged for the past several days. Lipase elevated yesterday. Lactic acid normal. Troponin normal. Urinary retention after removal of Sloan. Straight catheter 1300. Cc 02/28: New diagnosis large retroperitoneal hematoma. Received 10 PRBC, 14 FFP, 2 platelets, 1 cryo-, 6 g calcium chloride, 2 is magnesium sulfate and 4 mg Bumex. CTA abdomen revealed possible arterial bleeds iliac, lumbar. Patient is currently on norepinephrine and epinephrine drips and possible need right nephrostomy tube placement due to large hematoma compressing ureter. Intra-abdominal bladder pressures are currently 13 03/01: Afebrile. Received 25 g albumin and 1 unit PRBCs overnight. Intra- abdominal bladder pressures currently 19. Currently on 3 micrograms per minute of norepinephrine. [id number] 1 out of 4 on 4 mics grams per kilogram per minute of cisatracurium. 03/02: Slightly hypothermic overnight. Hemoglobin appears to have stabilized. Troponin bump overnight likely secondary to demand ischemia from hypotension. Hemodynamically stable off all vasopressors. 03/03: Received 1 PRBCs overnight. 3 units currently. Off all vasopressors. Likely rebleeding. Stool is dark. 03/04: Remains unstable. Ventilator dependent. 03/05: afebrile. hgb stable. 03/06: bumex drip started overnight. good uop after bumex initiated. still grossly volume overloaded. Cr downtrending. more awake with transition to propofol. still too volume overloaded to tolerate extubation. hgb stable. 03/07: Afebrile. Tolerating tube feeds at goal with Nepro. Positive BM. On low-dose fentanyl and propofol drips. Potassium currently being replaced. 03/08: Eyes will open on ventilator. Afebrile. Tolerating tube feeding. Failed PSV trial yesterday due to apnea. 03/09: Following commands. Tmax 101. Tolerating tube feeding. One hour PSV trial yesterday. Currently tolerating well so far today 1.5 hours 03/10: Low-grade temperatures. Tolerating PSV trial 10 hours yesterday. Currently at 5/5 at 35%. We'll probably attempt extubation a.m. after hemodialysis. 03/11: Extubated currently in 4 L nasal cannula. Thick secretions thick clear with cough. Currently afebrile. Tolerating diet previously. 03/12: Sleepy this morning but arouses. Following commands. Refusing diet at the present time. On 2 L nasal cannula. 03/13: Patient reintubated last night for worsening respiratory status. Currently sedated on mechanical ventilation. Became hypotensive following intubation and is on Levophed 20 mics per minute. 03/14: Sedated, orally intubated on mech vent at the time of my evaluation this AM, subsequently underwent perc trach placement. Remains on levophed for pressor support. Transfused 1 unit PRBCs today. Persisten 03/15: Trach site clean, dry. CXR with bilateral basilar infiltrates. 03/16: Pulmonary congestion persists. Clinical condition not improving. Prognosis becoming increasingly bleak. 03/17: Glucose intolerance worse. No improvement in neurological function. 03/18: Remains on mechanical ventilation via tracheostomy. Off pressors now. Neurologic status remains poor. 03/19: Drowsy, encephalopathic, arousable. On mechanical ventilation via tracheostomy. Levemir increased for hyperglycemia today. Remains off pressors 03/20: More awake, moves both upper extremities. On mechanical ventilation via tracheostomy. Daily C Pap trials ongoing. 03/21: Awake and alert. On mechanical ventilation via tracheostomy. Opens and closes eyes on command. 03/22: Awake and alert. Tolerated T PIECE for 7 hours yesterday. Dialyzed today. 03/23: Currently on T piece trial. Status post dialysis yesterday on 3 L. Awake and alert. Wants to eat. Subjective 03/24: Currently afebrile. Hemodialysis catheter discontinued yesterday from left IJ. Persistent leukocytosis noted. Potassium will be replaced. Furosemide 40 mg twice a day IV to 20 mg IV twice a day 03/25: WBC count unchanged. Patient on T piece with humidified air greater than 48 hours, tolerating it well. Reconsulted 04/12: The patient was transferred emergently from the floor/ [facility]. Patient was initially seen by hematology specialist Dr. Estrada, and the patient was noted to be tachypneic on T piece of 40%. ABGs were performed which showed a PaO2 of 60 on T piece of FiO2 of 40%. Chest x-ray was performed which showed loss of entire left hemidiaphragm tutoring assistant consolidation in the left lower lobe. Concern for mucus plugging versus fluid. The patient was transferred emergently to [facility] placed on a ventilator CT of the chest is pending. Upon arrival in the room the patient is alert and oriented, mouthing words, nodding head to yes and no questions O2 sat is 100% but patient is currently on mechanical ventilation. Currently in no respiratory distress. 04/13: Tmax 99.8. The patient's oxygen requirements have decreased currently FiO2 35% with a PaO2 1 blood gas of 85, O2 saturation 100%. No respiratory distress noted. Patient underwent CT of the chest yesterday noted pleural effusions left greater than right, diagnostic/and therapeutic CT thoracentesis plan for this a.m.. 04/14: Patient underwent CT-guided thoracentesis of the right side with approximately 600 cc withdrawn. Today hematology specialist Dr. LABOY in and up size indwelling 6.0 Shiley to a 8.0 Shiley. Minimal bleeding noted around the site. X-ray improving. Patient started on CPAP trials today, as well as tube feeds were initiated. 04/15: Placed on T piece this morning via tracheostomy. Appears to be tolerating it. Laying in bed not in any acute distress. 04/16: Awake and alert. Tolerating T piece. Tolerating PEG feeds. 04/17: Awake and alert. Tolerating T piece. Tolerating tube feeds via PEG 04/18: Awake and alert. Tolerating TPs. Tolerating tube feeds. Passed swallow eval 04/19: Awake and alert. Remains on T piece. Wants to move out of ICU as he indicates to me once again as he has for the past few days. Awaiting [facility]IC bed Objective Vital Signs Date Time Temp Pulse Resp B/P (MAP) Pulse Ox O2 Delivery O2 Flow Rate FiO2 04/19/17 08:24 96 T-piece 6.00 40 04/19/17 08:00 105 04/19/17 08:00 98.5 22 90/67 (75) Intake and Output 04/19/17 04/19/17 04/20/17 08:00 16:00 00:00 Intake Total 529 ml Output Total 1800 ml Balance -1271 ml Result Diagram: 04/17/17 0510 Imaging Last Impressions Chest CT 04/12/17 1558 Signed Impressions: Service Date/Time: March 17:51 - CONCLUSION: 1. Slight increase in size of bilateral effusions and basilar atelectasis, left greater than right compared with February 27. Tracheostomy in good position. Trace Holloway MD Chest X-Ray 04/12/17 1248 Signed Impressions: Service Date/Time: March 10:59 - CONCLUSION: New hazy opacity involving most of the left hemithorax suggesting either large pleural effusion or developing infiltrates. Stable left lower lung consolidation. Candido Patton MD Renal Ultrasound 04/02/17 0000 Signed Impressions: Service Date/Time: Sunday, April 02, 2017 16:59 - CONCLUSION: Limited exam with the left kidney being unable to be evaluated in the bladder not distended. There do appear to be multiple shadowing stones at the right kidney without hydronephrosis. Angelo Manzo MD Wrist X-Ray 03/27/17 0000 Signed Impressions: Service Date/Time: Monday, March 27, 2017 13:21 - CONCLUSION: 1. No acute fracture is identified. A portion of the previously documented distal ulna fracture remains visualized. 2. 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 Angelo Allen MD Aortography 02/28/17 0000 Signed Impressions: Service Date/Time: Tuesday, February 28, 2017 08:01 - CONCLUSION: 1. Active hemorrhage from distal right lateral sacral and iliolumbar branches successfully coil and Gelfoam embolized, as above. Juan Bhakta MD Abdomen/Pelvis CT 02/28/17 0000 Signed Impressions: Service Date/Time: Tuesday, February 28, 2017 06:51 - CONCLUSION: 1. The right retroperitoneal hematoma has increased in size, as above. There are 2 serpiginous arterially enhancing structures visualized, one in the right psoas muscle and another extending into the hematoma at the right iliac fossa. These could represent sites of continued active bleeding. 2. Stable moderate size left and small right pleural effusion with associated compressive atelectasis. 3. Stable small volume of free fluid in the abdomen and pelvis. There is also anasarca. The findings concerning the retroperitoneal hematoma were discussed with Dr. Aguiar via telephone at approximately 7: 10 AM on 02/28/2017. Angelo Allen MD Abdomen X-Ray 02/26/17 0000 Signed Impressions: Service Date/Time: Sunday, February 26, 2017 14:52 - CONCLUSION: 1. Nonobstructive bowel gas pattern. Juan Bhakta MD Upper Extremity Ultrasound 02/10/17 0000 Signed Impressions: Service Date/Time: Friday, February 10, 2017 18:46 - CONCLUSION: Occlusive thrombus in the cephalic and basilic veins. Benjamin Person MD Lung Scan- Nuclear Medicine 02/10/17 0000 Signed Impressions: Service Date/Time: Friday, February 10, 2017 22:17 - CONCLUSION: Low probability pulmonary embolism. Candido Patton MD Head CT 02/10/17 0000 Signed Impressions: Service Date/Time: Friday, February 10, 2017 23:51 - CONCLUSION: Negative noncontrast CT brain. Candido Patton MD Lumbar Puncture Fluoroscopy 02/01/17 0000 Signed Impressions: Service Date/Time: January 09:35 - CONCLUSION: Uncomplicated fluoroscopically guided lumbar puncture. CSF was clear. Nabeel Peralta MD Head Magnetic Resonance Angiography 01/27/17 0000 Signed Impressions: Service Date/Time: Friday, January 27, 2017 10:33 - CONCLUSION: No intracranial vascular abnormality is identified. There is no aneurysm visualized. Angelo Allen MD IVC Filter Placement X-Ray 01/25/17 Signed Impressions: Service Date/Time: January 10:29 - CONCLUSION: Uncomplicated inferior vena cava filter placement as above. Yung Fowler MD Thoracic Spine MRI 01/24/17 Signed Impressions: Service Date/Time: Tuesday, January 24, 2017 22:29 - CONCLUSION: 1. Mild degenerative spondylosis most prominently at T11-L1 with slight effacement of the anterior thecal sac and left lateral recess. No significant neural foraminal stenosis. 2. No acute fracture. Juan Bhakta MD Lumbar Spine MRI 01/23/17 Signed Impressions: Service Date/Time: Monday, January 23, 2017 17:01 - CONCLUSION: 1. At L4-5 is a broad-based disc protrusion with severe central canal and lateral recess stenosis and flattening of the exiting right L4 nerve root. 2. L5-S1 there is a disc protrusion and moderate stenosis with flattening of the exiting L5 nerve roots bilaterally. 3. At L3-4 there is a moderate to severe central stenosis and lateral recess stenosis with mild foraminal stenosis. 4. No acute fracture or spondylolisthesis. Trace Holloway MD Lower Extremity Ultrasound 01/23/17 Signed Impressions: Service Date/Time: Monday, January 23, 2017 09:53 - CONCLUSION: Bilateral focal lower extremity DVT involving the posterior tibial veins. Angelo Garrido MD Cervical Spine MRI 01/23/17 Signed Impressions: Service Date/Time: Monday, January 23, 2017 17:01 - CONCLUSION: 1. Multilevel cervical spine degenerative changes as above. 2. Mild degrees of spinal stenosis at C3/C4-C6/C7. No cord compression or cord signal abnormality. 3. Age indeterminate left paracentral/foraminal disc protrusion at C6/C7. 4. Multilevel foraminal stenosis, most severe on the left at C6/C7. Please see individual levels above. 5. No fracture or subluxation of the cervical spine. Angelo Garrido MD Brain MRI 01/23/17 Signed Impressions: Service Date/Time: Monday, January 23, 2017 17:01 - CONCLUSION: 1. No acute stroke or other acute intracranial abnormality demonstrated. 2. Moderate severity chronic white matter changes, nonspecific but most likely related to chronic small vessel disease. 3. Few scattered tiny lacunar infarcts of the brainstem. 4. Given the findings are not entirely specific, clinical evaluation for possible multiple sclerosis recommended. Angelo Garrido MD Knee X-Ray 01/22/172053 Signed Impressions: Service Date/Time: Sunday, January 22, 2017 21:17 - CONCLUSION: 1. Evidence of moderate to large joint effusion. 2. No acute fracture or malalignment. 3. Mild 3 compartment osteoarthritic change. Benjamin Person MD Hip and Pelvis X-Ray 01/22/172053 Signed Impressions: Service Date/Time: Sunday, January 22, 2017 21:10 - CONCLUSION: 1. Mild to moderate degenerative change of both hips with no acute fracture or malalignment. There is flattening and remodeling of the right humeral head. Benjamin Person MD Last Impressions Chest X-Ray 03/14/17 0000 Signed Impressions: Service Date/Time: Tuesday, March 14, 2017 13:41 - CONCLUSION: 1. Tracheostomy in good position. 2. Left lower lung infiltrates and left pleural effusion. Candido Patton MD Aortography 02/28/17 0000 Signed Impressions: Service Date/Time: Tuesday, February 28, 2017 08:01 - CONCLUSION: 1. Active hemorrhage from distal right lateral sacral and iliolumbar branches successfully coil and Gelfoam embolized, as above. Juan Bhakta MD Abdomen/Pelvis CT 02/28/17 0000 Signed Impressions: Service Date/Time: Tuesday, February 28, 2017 06:51 - CONCLUSION: 1. The right retroperitoneal hematoma has increased in size, as above. There are 2 serpiginous arterially enhancing structures visualized, one in the right psoas muscle and another extending into the hematoma at the right iliac fossa. These could represent sites of continued active bleeding. 2. Stable moderate size left and small right pleural effusion with associated compressive atelectasis. 3. Stable small volume of free fluid in the abdomen and pelvis. There is also anasarca. The findings concerning the retroperitoneal hematoma were discussed with Dr. Aguiar via telephone at approximately 7: 10 AM on 02/28/2017. Angelo Allen MD Chest CT 02/27/17 0000 Signed Impressions: Service Date/Time: Monday, February 27, 2017 18:12 - CONCLUSION: 1. Bilateral pleural effusions with bibasilar atelectasis, left greater than right. Tom Sanchez MD Abdomen X-Ray 02/26/17 0000 Signed Impressions: Service Date/Time: Sunday, February 26, 2017 14:52 - CONCLUSION: 1. Nonobstructive bowel gas pattern. Juan Bhakta MD Upper Extremity Ultrasound 02/10/17 0000 Signed Impressions: Service Date/Time: Friday, February 10, 2017 18:46 - CONCLUSION: Occlusive thrombus in the cephalic and basilic veins. Benjamin Person MD Lung Scan- Nuclear Medicine 02/10/17 0000 Signed Impressions: Service Date/Time: Friday, February 10, 2017 22:17 - CONCLUSION: Low probability pulmonary embolism. Candido Patton MD Head CT 02/10/17 0000 Signed Impressions: Service Date/Time: Friday, February 10, 2017 23:51 - CONCLUSION: Negative noncontrast CT brain. Candido Patton MD Wrist X-Ray 02/06/17 0000 Signed Impressions: Service Date/Time: Monday, February 06, 2017 12:50 - CONCLUSION: Minimally displaced distal radius and ulnar fractures. Armando Dodd MD Lumbar Puncture Fluoroscopy 02/01/17 0000 Signed Impressions: Service Date/Time: January 09:35 - CONCLUSION: Uncomplicated fluoroscopically guided lumbar puncture. CSF was clear. Nabeel Peralta MD Head Magnetic Resonance Angiography 01/27/17 0000 Signed Impressions: Service Date/Time: Friday, January 27, 2017 10:33 - CONCLUSION: No intracranial vascular abnormality is identified. There is no aneurysm visualized. Angelo Allen MD IVC Filter Placement X-Ray 01/25/17 0000 Signed Impressions: Service Date/Time: January 10:29 - CONCLUSION: Uncomplicated inferior vena cava filter placement as above. Yung Fowler MD Thoracic Spine MRI 01/24/17 0000 Signed Impressions: Service Date/Time: Tuesday, January 24, 2017 22:29 - CONCLUSION: 1. Mild degenerative spondylosis most prominently at T11-L1 with slight effacement of the anterior thecal sac and left lateral recess. No significant neural foraminal stenosis. 2. No acute fracture. Juan Bhakta MD Renal Ultrasound 01/23/17 Signed Impressions: Service Date/Time: Monday, January 23, 2017 08:53 - CONCLUSION: 1. Evidence of chronic parenchymal disease of both kidneys. No obstructive uropathy or other acute abnormality demonstrated. 2. Trace ascites, nonspecific. Angelo Garrido MD Lumbar Spine MRI 01/23/17 Signed Impressions: Service Date/Time: Monday, January 23, 2017 17:01 - CONCLUSION: 1. At L4-5 is a broad-based disc protrusion with severe central canal and lateral recess stenosis and flattening of the exiting right L4 nerve root. 2. L5-S1 there is a disc protrusion and moderate stenosis with flattening of the exiting L5 nerve roots bilaterally. 3. At L3-4 there is a moderate to severe central stenosis and lateral recess stenosis with mild foraminal stenosis. 4. No acute fracture or spondylolisthesis. Trace Holloway MD Lower Extremity Ultrasound 01/23/17 Signed Impressions: Service Date/Time: Monday, January 23, 2017 09:53 - CONCLUSION: Bilateral focal lower extremity DVT involving the posterior tibial veins. Angelo Garrido MD Cervical Spine MRI 01/23/17 Signed Impressions: Service Date/Time: Monday, January 23, 2017 17:01 - CONCLUSION: 1. Multilevel cervical spine degenerative changes as above. 2. Mild degrees of spinal stenosis at C3/C4-C6/C7. No cord compression or cord signal abnormality. 3. Age indeterminate left paracentral/foraminal disc protrusion at C6/C7. 4. Multilevel foraminal stenosis, most severe on the left at C6/C7. Please see individual levels above. 5. No fracture or subluxation of the cervical spine. Angelo Garrido MD Brain MRI 01/23/17 Signed Impressions: Service Date/Time: Monday, January 23, 2017 17:01 - CONCLUSION: 1. No acute stroke or other acute intracranial abnormality demonstrated. 2. Moderate severity chronic white matter changes, nonspecific but most likely related to chronic small vessel disease. 3. Few scattered tiny lacunar infarcts of the brainstem. 4. Given the findings are not entirely specific, clinical evaluation for possible multiple sclerosis recommended. Angelo Garrido MD Knee X-Ray 01/22/172053 Signed Impressions: Service Date/Time: Sunday, January 22, 2017 21:17 - CONCLUSION: 1. Evidence of moderate to large joint effusion. 2. No acute fracture or malalignment. 3. Mild 3 compartment osteoarthritic change. Benjamin Person MD Hip and Pelvis X-Ray 01/22/172053 Signed Impressions: Service Date/Time: Sunday, January 22, 2017 21:10 - CONCLUSION: 1. Mild to moderate degenerative change of both hips with no acute fracture or malalignment. There is flattening and remodeling of the right humeral head. Benjamin Person MD Objective Remarks GENERAL: 62-year-old male, resting in bed, on T piece, in no apparent distress nodding head to yes and no questions HEENT: Normocephalic. Atraumatic. Pupils equal, round, reactive. NECK: Tracheostomy in place, around trach site erythematous, yellowish drainage CHEST: On T piece, air entry decreased bilaterally . Scattered rhonchi, no wheezing CARDIOVASCULAR: S1-S2 regular, no gallop or murmur ABDOMEN distended. No rigidity. Umbilical hernia is reducible. No guarding. PEG tube in place : Positive scrotal edema Sloan in situ MUSCULOSKELETAL: Pulses 2+. 1+ bilateral upper and lower extremity edema. NEUROLOGICAL: Awake and alert, has spontaneous eye opening. Opens and closes eyes on command. Moves 4 limbs weakly to stimulation. Procedures 01/25/2017- Retrievable IVC Filter placement 01/26/17-lumbar puncture with fluoroscopy-by interventional radiology 02/01/17- lumbar puncture fluoroscopy by interventional radiology 02/10/17- Endotracheal Intubation 02/10/17-left IJ central venous line placed 02/10/17-left femoral arterial line placed 02/11/17-Diagnostic and therapeutic bronchoscopy with bronchoalveolar lavage 02/11/17-Left upper extremity incision and debridement with excision of septic cephalic vein 02/13/17- Extubated 02/20/17- endotracheal intubation 02/20/17- Left subclavian central line placement 02/20/17-Right radial A-line placement 02/22/17-EGD/colonoscopy 02/28/17-right radial a line 02/28/17- Endotracheal intubation 02/28/17- right sided introducer catheter placement 02/28/17- Right IJ central line placement 02/28/17-Right chest tube placement 02/28/17- Embolization of inferior and superior sacral branches of right internal iliac artery 03/01/17- Hemodialysis access catheter 03/03/17-Right IJ central line placement 03/11/17-Extubated 03/13/17- Endotracheal intubation 03/14/17-Tracheostomy placement, trach downsized to 6.0 Michelleley 03/30/17 03/15/17-PEG tube placement 04/11/17-CT Chest 04/13/17-thoracentesis right 600 cc removed Date of Insertion: Feb 20, 2017 Date of Insertion: Mar 03, 2017 Line: Central Venous Catheter Side: Right Location: Internal, Jugular A/P Problem List: (1) Septic shock ICD Code: A41.9 - Sepsis, unspecified organism; R65.21 - Severe sepsis with septic shock Status: Acute (2) Acute respiratory failure ICD Code: J96.00 - Acute respiratory failure, unspecified whether with hypoxia or hypercapnia Status: Acute (3) Thrombophlebitis arm ICD Code: I80.8 - Phlebitis and thrombophlebitis of other sites (4) Aspiration pneumonia ICD Code: J69.0 - Pneumonitis due to inhalation of food and vomit Status: Acute (5) Atelectasis of left lung ICD Code: J98.11 - Atelectasis Status: Acute (6) Quadriparesis ICD Code: G82.50 - Quadriplegia, unspecified Status: Acute (7) DVT (deep venous thrombosis) ICD Code: I82.409 - Acute embolism and thrombosis of unspecified deep veins of unspecified lower extremity (8) Altered mental status ICD Code: R41.82 - Altered mental status, unspecified Status: Acute (9) CKD (chronic kidney disease) stage 3, GFR 30-59 ml/min ICD Code: N18.3 - Chronic kidney disease, stage 3 (moderate) Status: Chronic (10) Acute renal failure ICD Code: N17.9 - Acute kidney failure, unspecified Status: Acute (11) Diabetes mellitus ICD Code: E11.9 - Type 2 diabetes mellitus without complications Status: Chronic (12) Distal end of ulna fracture, closed ICD Code: S52.609A - Unspecified fracture of lower end of unspecified ulna, initial encounter for closed fracture Status: Acute (13) Gout ICD Code: M10.9 - Gout, unspecified Status: Chronic Assessment and Plan Assessment: NEURO/PSYCH: Acute metabolic encephalopathy- persistent Quadriparesis secondary to suspected transverse myelitis Recurrent falls Suspected transverse myelitis. Received methylprednisolone 250 mg IV every 6 hours 01/27-02/02, started back on hydrocortisone 02/21/17, initially tapering to 50 mg IV every 8 hours starting received 1 dose at 2100 prior to becoming hypotensive. weaning hydrocortisone taper and stopped 03/09. Resumed hydrocortisone 50mg IV Q6hrly on 03/14 as patient became hypotensive following intubation on 03/13 requiring levophed. Continue Hydrocortisone 50 mg IV every 6 hours LP 01/26 and 02/01. CSF culture negative 01/26, 02/01 Oligoclonal bands negative. CSF/serum IgG index is not elevated. VDRL nonreactive. Cryptococcal antigen negative. Brain MRI 01/23 no acute stroke. Few scattered lacunar infarcts of the brainstem. Moderate chronic white matter changes. MRI cervical/thoracic spine- mild spinal stenosis C3/C4 to C6/C7. No cord compression. RPR negative Neurology has been following, Dr. Crenshaw. Repeat CT brain 02/10 - negative Continue PT/OT Continue oxycodone 10 mg every 4 hours scheduled Will consider EMG and Nerve Conduction studies- physical medicine and rehabilitation consulted RESP: Acute hypoxemic respiratory failure Healthcare associated pneumonia/Aspiration Pneumonia S/P Right-sided chest tube 02/28 Off mechanical ventilation, vent bundle, tolerating T piece. -On T piece >48 hours. Humidified room air Albuterol/ipratropium aerosols every 6 hours with albuterol aerosols every 2 hours prn VQ scan 02/10 low probability for PE. CT chest 02/10 - left lower lobe collapse and consolidation. CT chest 02/27 revealed right greater than left pleural effusions. Extubated 02/23. Intubated 02/28. Extubated 03/11, Reintubated on 03/13. Right-sided chest tube placement 02/28 director of patient financial services, removed 03/05. Failed attempt to wean successfully due to volume overload and multiple organ failure. underwent perc tracheostomy 03/14. CT chest 04/12-slight increase and bilateral effusions left greater than right basilar atelectasis CXR 04/13-moderate pleural effusion left with consolidation of the left lung Pulmonology following Dr. Estrada -Patient has a 6.0 Shiley may also need bronchoscopy to require a larger size trach or intubation. 04/13 CT guided thoracentesis scheduled emergently as discussed with Dr. Estrada - 600cc removed (right) 04/14-tracheostomy up sized to 8.0 Shiley by hematology specialist Dr. Estrada at bedside CV: Severe sepsis - resolved. Systolic heart failure likely chronic with ejection fraction 20-25% Hyperlipidemia History of hypertension Mild TR Sinus tachycardia Elevated troponin likely type II demand ischemia Restarted on Levophed on 03/09 for following intubation, titrated off after starting hydrocortisone. Started hydrocortisone stress dose on 03/14 (as patient has been on steroids and was just tapered off on 03/09.) Patient has on hypotensive twice when attempting to wean off stress dose hydrocortisone in the past. Currently on atenolol 25 mg twice a day. Continue amlodipine 5 mg daily As needed Nitropaste, labetalol and hydralazine for hypertension Atorvastatin 10 mg by mouth daily for dyslipidemia. Troponin 0.[address]-T changes. 2-D echocardiogram 01/11 revealed EF 20-25%. Mild TR. Pulmonary arterial pressures were normal around 20 Troponin 6.55 on 03/02. Currently on furosemide 20 mg IV twice a day per nephrology GI: Large right retroperitoneal hematoma Erosive esophagitis Adematous/hyperplastic colon polyps Severe acute protein calorie malnutrition Nausea/vomiting - resolved. Diarrhea Gastritis Diverticulosis Internal and external hemorrhoids Hiatal hernia Elevated lipase 02/27 CT chest/abdomen and pelvis - 9.4 x 7.5 renal and 16 x 12 cm right psoas muscle hematoma. Fluid around liver and spleen. Right-sided nephrolithiasis CTA abdomen 02/28 - possible blushing around iliac/lumbar vessels Discussed with IR. s/p attempted embolization CT abdomen and pelvis 02/10 atrophic left kidney. Bilateral inguinal hernias fat- containing. Nonobstructing 12 mm right kidney stone repeat CT abd/pelvis did not show evidence of obstruction. patient clinically has been having diarrhea (c. diff negative 02/19). also with nausea/vomiting of unclear etiology. EGD/Colonoscopy-02/22/17 showed gastritis esophagitis, hiatal hernia, diverticulosis and multiple polyps in descending colon and sigmoid which were snared biopsied. Biopsy pending Dr. Lewis consulted for intervention if needed for elevated IAP. will continue to check as needed Status post PEG tube placement by consulted Previously on 1800-calorie ADA diet to this readmission to ICU, consult dietary for tube feeds Lansoprazole 30 mg twice a day for GI prophylaxis FEN/RENAL: Acute kidney injury in the setting of Chronic kidney disease stage 3-4 History of uric acid kidney stones with prior stent BPH Nonfunctioning left kidney Acute intravascular volume overload Hypokalemia Sloan placed due to urinary retention and worsening creatinine Maintain Sloan secondary to urinary retention Monitor intake and output q1hr. Monitor electrolytes. RIOS/SPEP negative. 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 Recommended nephrostomy tube if obstruction Nephrology consulted, hemodialysis per nephrology. Making urine. Due to acute illness holding tamsulosin 0.4 mg by mouth daily for BPH ICU electrolyte replacement protocol Last IHD was 03/22 ID: Septic shock- resolved. Abscess and Suppurative thrombophlebitis left upper extremity MSSA bacteremia Klebsiella UTI ESBL positive Acute aspiration pneumonia/HCAP Previously treated with Bactrim, ertapenem, intermittent vancomycin, nafcillin Blood cultures 2, UA ESBL positive Klebsiella UTI Sputum 03/14 - Pseudomonas came back resistant to imipenem, Stenotrophomonas maltophilia Repeat blood cultures 2 and sputum 03/08 pending. Urine negative. Antibiotics per ID ID following-Dr. Puente HEME: Acute blood loss anemia DVT, bilateral posterior tibial vein, IVC filter Septic thrombophlebitis with occlusive thrombus mid cephalic and basilic vein side Received 10 PRBC, 14 FFP, 2 platelets, 1 cryo-02/28 Received 3 units PRBCs Serial hemoglobins every 6 hours Recheck coags Ultrasound 01/23/17 - Bilateral lower extremity with occlusive posterior tibial vein DVTs. Heparin was initially started for DVT but was placed on hold due to LP with suspected traumatic tap. Currently holding full anticoagulation with enoxaparin 100 mg IV twice a day due to anemia as of 02/26 IVC filter was placed 01/25/17. Ultrasound LUE 02/10 occlusive thrombus mid cephalic vein, basilic vein.s. Transfuse 3 units PRBCs 02/27 Transfuse 2 units PRBCs 03/01. Transfused 1 unit PRBCs on 03/14 ENDO: Diabetes mellitus Hypoglycemia History of prior adrenal insufficiency with shock Gout EGD colonoscopy completed 02/22. gastritis and esophagitis, colon polyps Started Hydrocortisone 100 mg every 8 hours 02/21/17 (Recent high dose steroids use now hypotensive, hypoglycemic), steroids had been tapered off. Resumed stress dose steroids on 03/16 as patient back on Levophed for pressor support after intubation. Continue at 50 mg IV every 6 hours Accu-Cheks to maintain euglycemia Novulin R every 4 hours. Low Regimen Currently on insulin detemir 25 units twice a day for hyperglycemia MSK: Right distal ulna fracture. Recommended nonoperative management. PROPH: Lansoprazole 30 mg twice a day twice a day for stress ulcer prophylaxis. Has IVC filter. Therapeutic enoxaparin was placed on hold for retroperitoneal hematoma ACCESS: right IJ CVL placed 03/03-03/20. A left IJ hemodialysis catheter placed 03/01 - 03/23. Left femoral A line placed 03/14 - discontinued 03/19 Dispo: Discussed with MECHANICAL TECHNICAL SERVICE SPECIALIST at bedside Patient waiting for transfer out of ICU since 04/17. Consult placed to hospitalist service on 04/17. Hospitalist service to take over patient care when patient transferred out of ICU. I have asked ICU charge nurse to check with [facility] regarding bed availability for patient transfer as patient has been requesting to move out of ICU for the last 3 days. Problem Qualifiers (1) Aspiration pneumonia: (2) DVT (deep venous thrombosis): Qualified Codes: I82.443 - Acute embolism and thrombosis of tibial vein, bilateral (3) Acute renal failure: Qualified Codes: N17.9 - Acute kidney failure, unspecified (4) Diabetes mellitus: (5) Gout: Devin Puente MD Apr 19, 2017 12:47
--- NOTE | 2017-04-19 14:55 | HHI.IDPN ---
Subjective Subjective Remarks Patient is a 62-year-old male, admitted to the hospital for evaluation of pain in his right wrist. He gave a history of falling about a week ago and apparently had immediate pain in the right wrist. He did not seek any medical attention initially because reportedly he was very busy. He eventually presented, and he was found to have a distal ulnar fracture on plain films. He also had some redness and swelling. Orthopedics saw the patient, and was being treated conservatively with the splint. During this hospitalization also he started complaining of generalized weakness but more so in his lower extremity than his upper extremity. He had swelling in both lower extremity which revealed evidence of DVT in the posterior tibial veins. Neurology had seen the patient and he underwent lumbar puncture which apparently was traumatic. Patient was therefore not given anticoagulation because of the traumatic LP, and he underwent placement of an IVC filter on January 25. Patient had another lumbar puncture on February 01. He was felt to have transverse myelitis, and he was given high-dose IV Solu-Medrol from January 27 to February 02. There was apparently some improvement in his weakness. The imaging studies done for his weakness showed some spinal stenosis, and neurosurgery was consult that and recommended that there was no surgical intervention to be done. Patient has been stabilizing, but last night apparently deteriorated, and he ended up getting intubated, and had significant hypotension requiring pressors. There was also an ultrasound done of his left upper extremity which showed DVT, and there was evidence of superior 2 thrombophlebitis. Vascular surgery was consult to it and he had IND on his left upper extremity. Patient has had some fevers since yesterday. 2 blood cultures were done yesterday and they're now reported as growing gram-positive cocci in [place] in clusters. He is currently sedated and intubated. He is on Levophed and vasopressin. A central line was placed as well as a femoral a line. He apparently had an IV in his left upper extremity and that was removed yesterday. Patient also has history of chronic kidney disease, and nephrology evaluated the patient. He was just being monitored for his renal insufficiency. Reconsulted 04/12 for low grade fever, leucocytosis, worsening CXR concern for new pneumonia. Notes reviewed Temps ok Tolerating T-piece BP ok Clinically doing well H/o DVTs bilateral LE S/P IVC filter. H/o DVTs bilateral UE. Antibiotics Zerbaxa IV Tobra nebs Current Medications Medications (Trade) Dose Ordered Sig/Rosalia Route Start Time Stop Time Status Last Admin (NS Flush) 2 ml UNSCH PRN IV FLUSH 01/23/17 00:30 03/29/17 05:59 (NS Flush) 2 ml BID IV FLUSH 01/23/17 09:00 04/19/17 08:12 (Zofran Inj) 4 mg Q6H PRN IVP 01/23/17 00:30 02/26/17 17:23 (Narcan Inj) 0.4 mg UNSCH PRN IV 01/23/17 00:30 (Edna-Colace) 1 tab BID PO 01/23/17 09:00 Future Hold 02/24/17 20:31 (Dulcolax Supp) 10 mg DAILY PRN RECTAL 01/23/17 00:30 (Lipitor) 10 mg HS PO 01/24/17 21:00 Future hold 04/18/17 21:00 (Glucagon Inj) 1 mg UNSCH PRN OTHER 02/11/17 05:45 02/18/17 18:53 (Flomax) 0.4 mg Q12HR PO 02/17/17 15:00 Future hold 04/19/17 08:16 (Lovenox Inj) 100 mg Q12H SQ 02/18/17 12:00 Future Hold 02/26/17 16:20 (Lactinex) 1 tab TID PO 02/19/17 13:00 04/19/17 12:44 (D50w (Vial) Inj) 25 ml UNSCH PRN IV PUSH 02/20/17 12:45 03/27/17 13:20 (Questran Light Pkt) 4 gm Q12HR PO 02/25/17 21:00 Future Hold 02/27/17 10:32 (Aldactone) 25 mg DAILY PO 02/27/17 09:00 Future Hold (Peridex 0.12% Liq) 15 ml BID@08,20 MT 02/28/17 08:00 04/18/17 20:00 (NS Flush) UNSCH PRN IV FLUSH 03/01/17 13:00 (Heparin Inj) UNSCH PRN IV FLUSH 03/01/17 13:00 (NS Flush) DAILY IV FLUSH 03/04/17 09:00 04/19/17 08:12 (NS Flush) UNSCH PRN IV FLUSH 03/03/17 18:45 (Prevacid Odt) 30 mg BID NG 03/07/17 21:00 04/19/17 08:17 (Tylenol 650 Mg/ 20 ml Liq) 650 mg Q6H PRN PO 03/09/17 10:15 04/15/17 23:49 (Tenormin) 25 mg Q12HR PO 03/12/17 10:00 04/18/17 10:09 (Epogen Inj) 10,000 units UNSCH PRN IV PUSH 03/17/17 11:30 03/22/17 10:52 (Nitroglycerin 2% Oint) 2 inch Q6H PRN TOPICAL 03/23/17 14:00 03/29/17 01:20 (Norvasc) 10 mg DAILY PO 03/28/17 09:00 04/19/17 08:16 (Roxicodone Intensol Liq) 5 mg Q4H PO 04/01/17 18:00 04/19/17 13:53 (NovoLOG SUPPLEMENTAL SCALE) 1 ACHS SLIDING SCALE SQ 04/02/17 12:00 04/19/17 11:20 (Levemir Inj) 10 units BID SQ 04/03/17 21:00 04/17/17 08:47 (NovoLOG INJ) 5 units TIDAC SQ 04/03/17 17:00 Future Hold 04/10/17 08:00 (Xanax) 0.125 mg Q6H PRN PO 04/03/17 22:30 04/19/17 10:09 (Pill Splitter) 1 ea UNSCH PRN OTHER 04/03/17 22:45 (K-Lyte Cl Eff) 25 meq Q12HR PO 04/04/17 14:30 04/19/17 08:16 (Levsin Liq) 0.125 mg Q4H PRN G-TUBE 04/06/17 15:00 04/12/17 10:09 (Questran 4 Gm Pkt) 4 gm Q12HR G-TUBE 04/08/17 21:00 04/19/17 08:17 (SEROquel) 25 mg DAILY PO 04/09/17 09:00 04/19/17 08:16 (Santyl Oint) 1 applic DAILY TOPICAL 04/10/17 09:00 04/19/17 08:17 (Cortef) 10 mg Q12H PO 04/10/17 18:00 04/19/17 05:46 (Lasix Inj) 40 mg BID@09,18 IV PUSH 04/12/17 18:00 04/19/17 08:17 (Free Water) 200 ml Q6HR G-TUBE 04/12/17 18:00 04/19/17 11:20 Ceftolozane/ Tazobactam 1500 mg/Sodium Chloride 100 ml @ 100 mls/hr Q8H IV 04/12/17 17:00 04/19/17 23:00 04/19/17 08:17 (Duoneb Neb) 1 ampule Q2HR NEB PRN NEB 04/12/17 17:00 04/19/17 09:21 Dexmedetomidine HCl 200 mcg/ Sodium Chloride 50 ml @ 4.97 mls/hr TITRATE PRN IV 04/14/17 14:45 04/14/17 15:04 (Tobramycin Neb) 80 mg Q12HR NEB NEB 04/16/17 09:15 04/19/17 08:20 Lines PIV - Line sites with no e.o infection Past Medical History Reviewed Allergies: Coded Allergies: levofloxacin (Verified Allergy, Severe, 01/22/17) Objective . Vital Signs Date Time Temp Pulse Resp B/P (MAP) Pulse Ox O2 Delivery O2 Flow Rate FiO2 04/19/17 12:00 97.7 114 20 121/59 (79) 96 04/19/17 12:00 114 04/19/17 08:24 96 T-piece 6.00 40 04/19/17 08:00 105 04/19/17 08:00 98.5 105 22 90/67 (75) 95 04/19/17 07:21 93 T-Piece 40 04/19/17 04:00 99.2 101 22 107/59 (75) 100 04/19/17 04:00 105 04/19/17 00:00 101 04/19/17 00:00 98.2 104 32 103/60 (74) 04/18/17 20:35 99 T-piece 5.00 40 04/18/17 20:00 98.7 97 24 95/57 (70) 100 04/18/17 20:00 101 04/18/17 19:00 95 T-Piece 40 04/18/17 18:00 98 04/18/17 17:00 101 22 100/64 (76) 99 04/18/17 16:30 97 23 103/62 (76) 100 04/18/17 16:00 99 28 110/65 (80) 100 04/18/17 16:00 99 04/18/17 15:34 100 22 102/62 (75) 95 04/18/17 15:00 97 19 100/61 (74) 96 Imaging Chest X-Ray 04/14/17 0600 Signed Impressions: Service Date/Time: Friday, April 14, 2017 02:33 - CONCLUSION: 1. Interval placement of left-sided chest tube with improvement in aeration and opacity in the left lung. 2. Mild hazy residual left lung greatest at the lung base. Benjamin Person MD Thoracentesis 04/13/17 1054 Signed Impressions: Service Date/Time: Thursday, April 13, 2017 15:26 - CONCLUSION: Uncomplicated CT-guided right thoracentesis. Candido Mendoza Jr., MD Chest X-Ray 03/14/17 0000 Signed Impressions: Service Date/Time: Tuesday, March 14, 2017 13:41 - CONCLUSION: 1. Tracheostomy in good position. 2. Left lower lung infiltrates and left pleural effusion. Candido Patton MD Aortography 02/28/17 0000 Signed Impressions: Service Date/Time: Tuesday, February 28, 2017 08:01 - CONCLUSION: 1. Active hemorrhage from distal right lateral sacral and iliolumbar branches successfully coil and Gelfoam embolized, as above. Juan Bhakta MD Abdomen/Pelvis CT 02/28/17 0000 Signed Impressions: Service Date/Time: Tuesday, February 28, 2017 06:51 - CONCLUSION: 1. The right retroperitoneal hematoma has increased in size, as above. There are 2 serpiginous arterially enhancing structures visualized, one in the right psoas muscle and another extending into the hematoma at the right iliac fossa. These could represent sites of continued active bleeding. 2. Stable moderate size left and small right pleural effusion with associated compressive atelectasis. 3. Stable small volume of free fluid in the abdomen and pelvis. There is also anasarca. The findings concerning the retroperitoneal hematoma were discussed with Dr. Aguiar via telephone at approximately 7: 10 AM on 02/28/2017. Angelo Allen MD Chest CT 02/27/17 0000 Signed Impressions: Service Date/Time: Monday, February 27, 2017 18:12 - CONCLUSION: 1. Bilateral pleural effusions with bibasilar atelectasis, left greater than right. Tom Sanchez MD Abdomen X-Ray 02/26/17 0000 Signed Impressions: Service Date/Time: Sunday, February 26, 2017 14:52 - CONCLUSION: 1. Nonobstructive bowel gas pattern. Juan Bhakta MD Upper Extremity Ultrasound 02/10/17 0000 Signed Impressions: Service Date/Time: Friday, February 10, 2017 18:46 - CONCLUSION: Occlusive thrombus in the cephalic and basilic veins. Benjamin Person MD Lung Scan-V Nuclear Medicine 02/10/17 0000 Signed Impressions: Service Date/Time: Friday, February 10, 2017 22:17 - CONCLUSION: Low probability pulmonary embolism. Candido Patton MD Head CT 02/10/17 0000 Signed Impressions: Service Date/Time: Friday, February 10, 2017 23:51 - CONCLUSION: Negative noncontrast CT brain. Candido Patton MD Wrist X-Ray 02/06/17 0000 Signed Impressions: Service Date/Time: Monday, February 06, 2017 12:50 - CONCLUSION: Minimally displaced distal radius and ulnar fractures. Armando Dodd MD Lumbar Puncture Fluoroscopy 02/01/17 0000 Signed Impressions: Service Date/Time: January 09:35 - CONCLUSION: Uncomplicated fluoroscopically guided lumbar puncture. CSF was clear. Nabeel Peralta MD Head Magnetic Resonance Angiography 01/27/17 0000 Signed Impressions: Service Date/Time: Friday, January 27, 2017 10:33 - CONCLUSION: No intracranial vascular abnormality is identified. There is no aneurysm visualized. Angelo Allen MD IVC Filter Placement X-Ray 01/25/17 0000 Signed Impressions: Service Date/Time: January 10:29 - CONCLUSION: Uncomplicated inferior vena cava filter placement as above. Yung Fowler MD Thoracic Spine MRI 9/6/17 0000 Signed Impressions: Service Date/Time: Tuesday, January 24, 2017 22:29 - CONCLUSION: 1. Mild degenerative spondylosis most prominently at T11-L1 with slight effacement of the anterior thecal sac and left lateral recess. No significant neural foraminal stenosis. 2. No acute fracture. Juan Bhakta MD Renal Ultrasound 01/23/17 Signed Impressions: Service Date/Time: Monday, January 23, 2017 08:53 - CONCLUSION: 1. Evidence of chronic parenchymal disease of both kidneys. No obstructive uropathy or other acute abnormality demonstrated. 2. Trace ascites, nonspecific. Angelo Garrido MD Lumbar Spine MRI 01/23/17 Signed Impressions: Service Date/Time: Monday, January 23, 2017 17:01 - CONCLUSION: 1. At L4-5 is a broad-based disc protrusion with severe central canal and lateral recess stenosis and flattening of the exiting right L4 nerve root. 2. L5-S1 there is a disc protrusion and moderate stenosis with flattening of the exiting L5 nerve roots bilaterally. 3. At L3-4 there is a moderate to severe central stenosis and lateral recess stenosis with mild foraminal stenosis. 4. No acute fracture or spondylolisthesis. Trace Holloway MD Lower Extremity Ultrasound 01/23/17 Signed Impressions: Service Date/Time: Monday, January 23, 2017 09:53 - CONCLUSION: Bilateral focal lower extremity DVT involving the posterior tibial veins. Angelo Garrido MD Cervical Spine MRI 01/23/17 Signed Impressions: Service Date/Time: Monday, January 23, 2017 17:01 - CONCLUSION: 1. Multilevel cervical spine degenerative changes as above. 2. Mild degrees of spinal stenosis at C3/C4-C6/C7. No cord compression or cord signal abnormality. 3. Age indeterminate left paracentral/foraminal disc protrusion at C6/C7. 4. Multilevel foraminal stenosis, most severe on the left at C6/C7. Please see individual levels above. 5. No fracture or subluxation of the cervical spine. Angelo Garrido MD Brain MRI 01/23/17 Signed Impressions: Service Date/Time: Monday, January 23, 2017 17:01 - CONCLUSION: 1. No acute stroke or other acute intracranial abnormality demonstrated. 2. Moderate severity chronic white matter changes, nonspecific but most likely related to chronic small vessel disease. 3. Few scattered tiny lacunar infarcts of the brainstem. 4. Given the findings are not entirely specific, clinical evaluation for possible multiple sclerosis recommended. Angelo Garrido MD Knee X-Ray 01/22/[id number] Signed Impressions: Service Date/Time: Sunday, January 22, 2017 21:17 - CONCLUSION: 1. Evidence of moderate to large joint effusion. 2. No acute fracture or malalignment. 3. Mild 3 compartment osteoarthritic change. Benjamin Person MD Hip and Pelvis X-Ray [id number]/22/[id number] Signed Impressions: Service Date/Time: Sunday, January 22, 2017 21:10 - CONCLUSION: 1. Mild to moderate degenerative change of both hips with no acute fracture or malalignment. There is flattening and remodeling of the right humeral head. Benjamin Person MD Physical Exam GENERAL: Awake and alert, on T-piece, not in distress SKIN: Cool and dry. No generalized rash. Edematous in extremities EYES: [place] conjunctiva. No petechia or hemorrhage. EARS, NOSE AND THROAT: Nose without bleeding or purulent nasal discharge. Dry oral mucosa NECK: Trach site ok. CARDIOVASCULAR: Regular rate and rhythm. Soft heart sounds. No murmurs RESPIRATORY: Coarse BS bilaterally, decreased at bases. ABDOMEN: Soft, not tender, not distended, PEG site ok. No guarding EXTREMITIES: No clubbing, cyanosis. Edema feet better; edema hands better, still present NEUROLOGICAL: awake and following commands PSYCHIATRIC: Calm and cooperative LINE: Lines with no evidence of infection Assessment & Plan Remarks IMPRESSION New Sepsis (fever and leucocytosis) Aspiration Pneumonia in health care setting. Mucus plugs with atelectasis. Worsening leucocytosis. ESBL in urine in recent past. 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 PNA, ?plugging/atelctasis - MDR, I to Zerbaxa, has been tolerating T-piece - likely effusion adding to his respiratory problems, on top of his plugging /secretions Large R retroperitoneal bleed, S/P multiple transfusions and S/P coiling of bleeders Anemia, due to bleed, retroperitoneal MSSA sepsis, due to suppurative thrombophlebitis LUE, S/P I and D and excision of portion of cephalic vein - S/P Rx Respiratory failure, has had several intubations - reintubated again 02/28, extubated 03/11 - reintubated again - S/P trach 03/14 Recent Rx 7 days high dose solumedrol for transverse myelitis Wu LE DVT has IVC filter placed 01/25 - ?hypercoagulable state Chronic kidney disease, worsening creatinine - shock and compression of ureter by hematoma Known DM, HTN RECOMMENDATION Continue Zerbaxa IV - to finish today Continue Tobra nebs Monitor temps Monitor progress Clinically doing well from ID standpoint Irene Edwards MD Apr 19, 2017 14:55
[2017-04-19] MEDS: SODIUM CHLORIDE 0.9% FLUSH 10 ML FLUSH IV FLUSH PRN (17:15)
[2017-04-19] MEDS: ATORVASTATIN 10 MG TAB PO SCH (21:01)
[2017-04-19] MEDS: ACETAMINOPHEN 650 MG/20.3 ML UDC PO PRN (21:02)
[2017-04-19] MEDS ORDERED: SODIUM CHLOR 0.9% 1000 ML INJ 2,000 ML IV ONE (22:00)
[2017-04-19] MEDS: SODIUM CHLOR 0.9% 1000 ML INJ 1,000 ML IV SCH (22:17)
[2017-04-20] VITALS (26 sets, daily range): BP systolic 83–154; BP diastolic 52–78; PULSE 102–125; RESP 19–27; TEMP 98.6–99.4; O2SAT 94–100
[2017-04-20] MEDS ORDERED: SODIUM BICARBONATE 8.4% INJ 50 MEQ/50 ML SYR IV PUSH ONE (00:30)
[2017-04-20] MEDS ORDERED: HYDROCORTISONE SOD SUCCINATE 100 MG VIAL IV PUSH ONE (00:30)
[2017-04-20] MEDS ORDERED: NOREPINEPHRINE 4 MG/D5W 250 ML IV PRN (00:30)
[2017-04-20] MEDS: ALBUMIN 5% INJ 500 ML IV SCH ×4 (00:58→18:26)
[2017-04-20] MEDS: oxyCODONE HCL ORAL CONC 5 MG/0.25 ML SYRINGE PO SCH ×6 (00:59→22:09)
[2017-04-20 01:22] LABS: AUTOMATED NEUTROPHIL # 12.2 TH/MM3 (1.8-7.7); BASOPHIL # 0.1 TH/MM3 (0-0.2); BASOPHIL % 0.7 % (0.0-2.0); EOSINOPHIL # 0.6 TH/MM3 (0-0.4); HEMATOCRIT 25.8 % (39.0-51.0); LYMPH % 8.1 % (9.0-44.0); LYMPHOCYTE # 1.3 TH/MM3 (1.0-4.8); MEAN CELL VOLUME 86.7 FL (80.0-100.0); MEAN CORPUSCULAR HEMOGLOBIN 27.3 PG (27.0-34.0); MEAN CORPUSCULAR HGB CONC 31.4 % (32.0-36.0); NEUT % 77.2 % (16.0-70.0); PLATELET COUNT 270 TH/MM3 (150-450); RED BLOOD COUNT 2.98 MIL/MM3 (4.50-5.90); RED CELL DISTRIBUTION WIDTH 17.1 % (11.6-17.2); WHITE BLOOD COUNT 15.8 TH/MM3 (4.0-11.0)
[2017-04-20 01:23] LABS: HEMO FLAGS AUTO DIFF
[2017-04-20 01:58] LABS: ALT (GPT) 10 U/L (12-78); ANION GAP 7 MEQ/L (5-15); AST (GOT) 28 U/L (15-37); BICARBONATE 23.4 MEQ/L (21.0-32.0); BLOOD UREA NITROGEN 51 MG/DL (7-18); CHLORIDE 110 MEQ/L (98-107); GLOMERULAR FILTRATION RATE 39 ML/MIN (>89); MAGNESIUM 1.7 MG/DL (1.5-2.5); SODIUM (NA) 140 MEQ/L (136-145)
[2017-04-20 02:00] LABS: ALKALINE PHOSPHATASE 88 U/L (45-117); TOTAL BILIRUBIN ADULT 0.3 MG/DL (0.2-1.0)
[2017-04-20 02:50] LABS: BANDS 6 % (0-6); EOSINOPHILS 2 % (0-4); METAMYELOCYTES 3 % (0-1); MYELOCYTES 1 % (0-0); NEUTROPHIL # MANUAL DIFF 14.5 TH/MM3 (1.8-7.7); POLYS (SEG NEUTROPHILS) 82 % (16-70); SCAN/DIFF FINAL DIFF MANUAL; WBC DIFF SAMPLE 100
[2017-04-20] MEDS: FREE WATER G-TUBE SCH ×4 (04:52→22:09)
[2017-04-20] MEDS: HYDROCORTISONE 10 MG TAB PO SCH ×2 (04:53→18:25)
[2017-04-20 06:40] LABS: HEMATOCRIT 28.5 % (39.0-51.0); MEAN CELL VOLUME 86.9 FL (80.0-100.0); MEAN CORPUSCULAR HEMOGLOBIN 27.1 PG (27.0-34.0); MEAN CORPUSCULAR HGB CONC 31.2 % (32.0-36.0); PLATELET COUNT 255 TH/MM3 (150-450); RED BLOOD COUNT 3.27 MIL/MM3 (4.50-5.90); RED CELL DISTRIBUTION WIDTH 17.1 % (11.6-17.2); WHITE BLOOD COUNT 23.7 TH/MM3 (4.0-11.0)
[2017-04-20 07:05] LABS: REVIEW FLAG FINAL
[2017-04-20] MEDS: CHLORHEXIDINE 0.12% (ORAL KIT) 15 ML CUP MT SCH ×2 (08:00→20:00)
[2017-04-20] MEDS: INSULIN ASPART SUPPLEMENTAL SCALE SQ SCH ×4 (08:00→20:23)
[2017-04-20] MEDS: RESP: ALBUTEROL 2.5 MG/IPRATROPIUM 0.5 MG NEB (PRN) NEB (08:18)
[2017-04-20] MEDS: RESP: TOBRAMYCIN SULFATE 80 MG/2 ML NEB NEB SCH ×2 (08:34→20:00)
[2017-04-20] MEDS: LANSOPRAZOLE SOLUTAB 30 MG TAB NG SCH ×2 (08:50→22:08)
[2017-04-20] MEDS: LACTOBACILLUS ACIDOPHILUS TAB PO SCH ×3 (08:50→18:25)
[2017-04-20] MEDS: SODIUM CHLORIDE 0.9% FLUSH 10 ML FLUSH IV FLUSH SCH ×3 (08:50→22:08)
[2017-04-20] MEDS: CHOLESTYRAMINE 4 GM PACKET G-TUBE SCH ×2 (08:50→22:08)
[2017-04-20] MEDS: QUEtiapine FUMARATE 25 MG TAB PO SCH (08:50)
[2017-04-20] MEDS: TAMSULOSIN HCL 0.4 MG CAP PO SCH ×2 (08:50→22:08)
[2017-04-20] MEDS: POTASSIUM CHLORIDE 25 MEQ EFFERVESCENT TAB PO SCH ×2 (08:50→20:24)
[2017-04-20] MEDS: INSULIN DETEMIR 100 UNITS/ML VIAL SQ SCH ×2 (08:52→22:09)
[2017-04-20] MEDS: SODIUM CHLOR 0.9% 1000 ML INJ 1,000 ML IV SCH ×2 (10:26→18:26)
[2017-04-20] MEDS: COLLAGENASE OINT 30 GM TUBE TOPICAL SCH (11:42)
--- NOTE | 2017-04-20 14:35 | HHI.IDPN ---
Subjective Subjective Remarks Patient is a 62-year-old male, admitted to the hospital for evaluation of pain in his right wrist. He gave a history of falling about a week ago and apparently had immediate pain in the right wrist. He did not seek any medical attention initially because reportedly he was very busy. He eventually presented, and he was found to have a distal ulnar fracture on plain films. He also had some redness and swelling. Orthopedics saw the patient, and was being treated conservatively with the splint. During this hospitalization also he started complaining of generalized weakness but more so in his lower extremity than his upper extremity. He had swelling in both lower extremity which revealed evidence of DVT in the posterior tibial veins. Neurology had seen the patient and he underwent lumbar puncture which apparently was traumatic. Patient was therefore not given anticoagulation because of the traumatic LP, and he underwent placement of an IVC filter on January 25. Patient had another lumbar puncture on February 01. He was felt to have transverse myelitis, and he was given high-dose IV Solu-Medrol from January 27 to February 02. There was apparently some improvement in his weakness. The imaging studies done for his weakness showed some spinal stenosis, and neurosurgery was consult that and recommended that there was no surgical intervention to be done. Patient has been stabilizing, but last night apparently deteriorated, and he ended up getting intubated, and had significant hypotension requiring pressors. There was also an ultrasound done of his left upper extremity which showed DVT, and there was evidence of superior 2 thrombophlebitis. Vascular surgery was consult to it and he had IND on his left upper extremity. Patient has had some fevers since yesterday. 2 blood cultures were done yesterday and they're now reported as growing gram-positive cocci in [place] in clusters. He is currently sedated and intubated. He is on Levophed and vasopressin. A central line was placed as well as a femoral a line. He apparently had an IV in his left upper extremity and that was removed yesterday. Patient also has history of chronic kidney disease, and nephrology evaluated the patient. He was just being monitored for his renal insufficiency. Reconsulted 04/12 for low grade fever, leucocytosis, worsening CXR concern for new pneumonia. Notes reviewed D/W RN Had temps last night On pressors briefly, off now Remains on T-piece Not SOB Moderate secretions, light yellow WBC up to 23K Has more liquid stool H/o DVTs bilateral LE S/P IVC filter. H/o DVTs bilateral UE. Antibiotics Tobra nebs Current Medications Medications (Trade) Dose Ordered Sig/Rosalia Route Start Time Stop Time Status Last Admin (NS Flush) 2 ml UNSCH PRN IV FLUSH 01/23/17 00:30 04/19/17 17:15 (NS Flush) 2 ml BID IV FLUSH 01/23/17 09:00 04/20/17 08:50 (Zofran Inj) 4 mg Q6H PRN IVP 01/23/17 00:30 02/26/17 17:23 (Narcan Inj) 0.4 mg UNSCH PRN IV 01/23/17 00:30 (Edna-Colace) 1 tab BID PO 01/23/17 09:00 Future Hold 02/24/17 20:31 (Dulcolax Supp) 10 mg DAILY PRN RECTAL 01/23/17 00:30 (Lipitor) 10 mg HS PO 01/24/17 21:00 Future hold 04/19/17 21:01 (Glucagon Inj) 1 mg UNSCH PRN OTHER 02/11/17 05:45 02/18/17 18:53 (Flomax) 0.4 mg Q12HR PO 02/17/17 15:00 Future hold 04/20/17 08:50 (Lovenox Inj) 100 mg Q12H SQ 02/18/17 12:00 Future Hold 02/26/17 16:20 (Lactinex) 1 tab TID PO 02/19/17 13:00 04/20/17 12:05 (D50w (Vial) Inj) 25 ml UNSCH PRN IV PUSH 02/20/17 12:45 03/27/17 13:20 (Questran Light Pkt) 4 gm Q12HR PO 02/25/17 21:00 Future Hold 02/27/17 10:32 (Aldactone) 25 mg DAILY PO 02/27/17 09:00 Future Hold (Peridex 0.12% Liq) 15 ml BID@08,20 MT 02/28/17 08:00 04/19/17 20:00 (NS Flush) UNSCH PRN IV FLUSH 03/01/17 13:00 (Heparin Inj) UNSCH PRN IV FLUSH 03/01/17 13:00 (NS Flush) DAILY IV FLUSH 03/04/17 09:00 04/20/17 10:26 (NS Flush) UNSCH PRN IV FLUSH 03/03/17 18:45 (Prevacid Odt) 30 mg BID NG 03/07/17 21:00 04/20/17 08:50 (Tylenol 650 Mg/ 20 ml Liq) 650 mg Q6H PRN PO 03/09/17 10:15 04/19/17 21:02 (Tenormin) 25 mg Q12HR PO 03/12/17 10:00 Future Hold 04/18/17 10:09 (Epogen Inj) 10,000 units UNSCH PRN IV PUSH 03/17/17 11:30 03/22/17 10:52 (Nitroglycerin 2% Oint) 2 inch Q6H PRN TOPICAL 03/23/17 14:00 03/29/17 01:20 (Norvasc) 10 mg DAILY PO 03/28/17 09:00 Future Hold 04/19/17 08:16 (Roxicodone Intensol Liq) 5 mg Q4H PO 04/01/17 18:00 04/20/17 14:20 (NovoLOG SUPPLEMENTAL SCALE) 1 ACHS SLIDING SCALE SQ 04/02/17 12:00 04/20/17 12:05 (Levemir Inj) 10 units BID SQ 04/03/17 21:00 04/20/17 08:52 (NovoLOG INJ) 5 units TIDAC SQ 04/03/17 17:00 Future Hold 04/10/17 08:00 (Xanax) 0.125 mg Q6H PRN PO 04/03/17 22:30 04/19/17 10:09 (Pill Splitter) 1 ea UNSCH PRN OTHER 04/03/17 22:45 (K-Lyte Cl Eff) 25 meq Q12HR PO 04/04/17 14:30 04/20/17 08:50 (Levsin Liq) 0.125 mg Q4H PRN G-TUBE 04/06/17 15:00 04/12/17 10:09 (Questran 4 Gm Pkt) 4 gm Q12HR G-TUBE 04/08/17 21:00 04/20/17 08:50 (SEROquel) 25 mg DAILY PO 04/09/17 09:00 04/20/17 08:50 (Santyl Oint) 1 applic DAILY TOPICAL 04/10/17 09:00 04/20/17 11:42 (Cortef) 10 mg Q12H PO 04/10/17 18:00 04/20/17 04:53 (Lasix Inj) 40 mg BID@09,18 IV PUSH 04/12/17 18:00 Future Hold 04/19/17 17:15 (Free Water) 200 ml Q6HR G-TUBE 04/12/17 18:00 04/20/17 12:00 (Duoneb Neb) 1 ampule Q2HR NEB PRN NEB 04/12/17 17:00 04/20/17 08:18 Dexmedetomidine HCl 200 mcg/ Sodium Chloride 50 ml @ 4.97 mls/hr TITRATE PRN IV 04/14/17 14:45 Future Hold 04/14/17 15:04 (Tobramycin Neb) 80 mg Q12HR NEB NEB 04/16/17 09:15 04/20/17 08:34 Sodium Chloride 1,000 ml @ 120 mls/hr Q8H IV 04/19/17 22:00 04/20/17 10:26 Norepinephrine Bitartrate 250 ml @ 7.5 mls/hr TITRATE PRN IV 04/20/17 00:30 04/20/17 00:24 Albumin Human 500 ml @ 250 mls/hr Q6HR IV 04/20/17 00:30 04/20/17 19:59 04/20/17 12:05 Lines PIV - Line sites with no e.o infection Past Medical History Reviewed Allergies: Coded Allergies: levofloxacin (Verified Allergy, Severe, 01/22/17) Objective . Vital Signs Date Time Temp Pulse Resp B/P (MAP) Pulse Ox O2 Delivery O2 Flow Rate FiO2 04/20/17 10:00 115 04/20/17 10:00 115 20 114/68 (83) 99 04/20/17 09:30 125 27 154/67 (96) 98 04/20/17 09:30 125 04/20/17 09:00 119 04/20/17 09:00 119 20 127/73 (91) 97 04/20/17 08:30 117 04/20/17 08:30 117 20 122/78 (93) 100 04/20/17 08:22 97 T-piece 5.00 40 04/20/17 08:00 98.9 114 19 122/73 (89) 98 04/20/17 08:00 114 04/20/17 07:30 113 04/20/17 07:30 113 19 118/67 (84) 94 04/20/17 07:00 110 20 112/65 (81) 99 04/20/17 07:00 110 04/20/17 04:00 98.8 104 27 107/58 (74) 96 04/20/17 04:00 104 04/20/17 00:24 104 84/54 04/20/17 00:00 99.4 102 24 83/52 (62) 98 04/20/17 00:00 102 04/19/17 20:22 98 T-piece 6.00 40 04/19/17 20:00 100.9 117 33 82/50 (61) 94 04/19/17 20:00 117 04/19/17 19:00 95 T-Piece 40 04/19/17 16:00 99.0 114 20 102/57 (72) 94 04/19/17 16:00 116 04/20/17 04/20/17 04/21/17 15:00 23:00 07:00 Intake Total 500 ml Balance 500 ml IV Total 500 ml . Laboratory Tests Test 04/20/17 01:00 04/20/17 04:25 White Blood Count 15.8 TH/MM3 23.7 TH/MM3 Red Blood Count 2.98 MIL/MM3 3.27 MIL/MM3 Hemoglobin 8.1 GM/DL 8.9 GM/DL Hematocrit 25.8 % 28.5 % Mean Corpuscular Volume 86.7 FL 86.9 FL Mean Corpuscular Hemoglobin 27.3 PG 27.1 PG Mean Corpuscular Hemoglobin Concent 31.4 % 31.2 % Red Cell Distribution Width 17.1 % 17.1 % Platelet Count 270 TH/MM3 255 TH/MM3 Mean Platelet Volume 7.7 FL 8.3 FL Neutrophils (%) (Auto) 77.2 % Lymphocytes (%) (Auto) 8.1 % Monocytes (%) (Auto) 10.0 % Eosinophils (%) (Auto) 4.0 % Basophils (%) (Auto) 0.7 % Neutrophils # (Auto) 12.2 TH/MM3 Lymphocytes # (Auto) 1.3 TH/MM3 Monocytes # (Auto) 1.6 TH/MM3 Eosinophils # (Auto) 0.6 TH/MM3 Basophils # (Auto) 0.1 TH/MM3 CBC Comment AUTO DIFF Differential Total Cells Counted 100 Neutrophils % (Manual) 82 % Band Neutrophils % 6 % Lymphocytes % 4 % Monocytes % 2 % Eosinophils % 2 % Neutrophils # (Manual) 14.5 TH/MM3 Metamyelocytes 3 % Myelocytes 1 % Differential Comment FINAL DIFF MANUAL Laboratory Tests Test 04/20/17 01:00 Blood Urea Nitrogen 51 MG/DL Creatinine 1.78 MG/DL Random Glucose 153 MG/DL Total Protein 5.0 GM/DL Albumin 1.9 GM/DL Calcium Level 8.2 MG/DL Phosphorus Level 3.0 MG/DL Magnesium Level 1.7 MG/DL Alkaline Phosphatase 88 U/L Aspartate Amino Transf (AST/SGOT) 28 U/L Alanine Aminotransferase (ALT/SGPT) 10 U/L Total Bilirubin 0.3 MG/DL Sodium Level 140 MEQ/L Potassium Level 5.0 MEQ/L Chloride Level 110 MEQ/L Carbon Dioxide Level 23.4 MEQ/L Anion Gap 7 MEQ/L Estimat Glomerular Filtration Rate 39 ML/MIN Imaging Chest X-Ray 04/14/17 0600 Signed Impressions: Service Date/Time: Friday, April 14, 2017 02:33 - CONCLUSION: 1. Interval placement of left-sided chest tube with improvement in aeration and opacity in the left lung. 2. Mild hazy residual left lung greatest at the lung base. Benjamin Person MD Thoracentesis 04/13/17 1054 Signed Impressions: Service Date/Time: Thursday, April 13, 2017 15:26 - CONCLUSION: Uncomplicated CT-guided right thoracentesis. Candido Mendoza Jr., MD Chest X-Ray 03/14/17 0000 Signed Impressions: Service Date/Time: Tuesday, March 14, 2017 13:41 - CONCLUSION: 1. Tracheostomy in good position. 2. Left lower lung infiltrates and left pleural effusion. Candido Patton MD Aortography 02/28/17 0000 Signed Impressions: Service Date/Time: Tuesday, February 28, 2017 08:01 - CONCLUSION: 1. Active hemorrhage from distal right lateral sacral and iliolumbar branches successfully coil and Gelfoam embolized, as above. Juan Bhakta MD Abdomen/Pelvis CT 02/28/17 0000 Signed Impressions: Service Date/Time: Tuesday, February 28, 2017 06:51 - CONCLUSION: 1. The right retroperitoneal hematoma has increased in size, as above. There are 2 serpiginous arterially enhancing structures visualized, one in the right psoas muscle and another extending into the hematoma at the right iliac fossa. These could represent sites of continued active bleeding. 2. Stable moderate size left and small right pleural effusion with associated compressive atelectasis. 3. Stable small volume of free fluid in the abdomen and pelvis. There is also anasarca. The findings concerning the retroperitoneal hematoma were discussed with Dr. Aguiar via telephone at approximately 7: 10 AM on 02/28/2017. Angelo Allen MD Chest CT 02/27/17 0000 Signed Impressions: Service Date/Time: Monday, February 27, 2017 18:12 - CONCLUSION: 1. Bilateral pleural effusions with bibasilar atelectasis, left greater than right. Tom Sanchez MD Abdomen X-Ray 02/26/17 0000 Signed Impressions: Service Date/Time: Sunday, February 26, 2017 14:52 - CONCLUSION: 1. Nonobstructive bowel gas pattern. Juan Bhakta MD Upper Extremity Ultrasound 02/10/17 0000 Signed Impressions: Service Date/Time: Friday, February 10, 2017 18:46 - CONCLUSION: Occlusive thrombus in the cephalic and basilic veins. Benjamin Person MD Lung Scan- Nuclear Medicine 02/10/17 0000 Signed Impressions: Service Date/Time: Friday, February 10, 2017 22:17 - CONCLUSION: Low probability pulmonary embolism. Candido Patton MD Head CT 02/10/17 0000 Signed Impressions: Service Date/Time: Friday, February 10, 2017 23:51 - CONCLUSION: Negative noncontrast CT brain. Candido Patton MD Wrist X-Ray 02/06/17 0000 Signed Impressions: Service Date/Time: Monday, February 06, 2017 12:50 - CONCLUSION: Minimally displaced distal radius and ulnar fractures. Armando Dodd MD Lumbar Puncture Fluoroscopy 02/01/17 0000 Signed Impressions: Service Date/Time: January 09:35 - CONCLUSION: Uncomplicated fluoroscopically guided lumbar puncture. CSF was clear. Nabeel Peralta MD Head Magnetic Resonance Angiography 01/27/17 Signed Impressions: Service Date/Time: Friday, January 27, 2017 10:33 - CONCLUSION: No intracranial vascular abnormality is identified. There is no aneurysm visualized. Angelo Allen MD IVC Filter Placement X-Ray 01/25/17 Signed Impressions: Service Date/Time: January 10:29 - CONCLUSION: Uncomplicated inferior vena cava filter placement as above. Yung Fowler MD Thoracic Spine MRI 01/24/17 Signed Impressions: Service Date/Time: Tuesday, January 24, 2017 22:29 - CONCLUSION: 1. Mild degenerative spondylosis most prominently at T11-L1 with slight effacement of the anterior thecal sac and left lateral recess. No significant neural foraminal stenosis. 2. No acute fracture. Juan Bhakta MD Renal Ultrasound 01/23/17 Signed Impressions: Service Date/Time: Monday, January 23, 2017 08:53 - CONCLUSION: 1. Evidence of chronic parenchymal disease of both kidneys. No obstructive uropathy or other acute abnormality demonstrated. 2. Trace ascites, nonspecific. Angelo Garrido MD Lumbar Spine MRI 01/23/17 Signed Impressions: Service Date/Time: Monday, January 23, 2017 17:01 - CONCLUSION: 1. At L4-5 is a broad-based disc protrusion with severe central canal and lateral recess stenosis and flattening of the exiting right L4 nerve root. 2. L5-S1 there is a disc protrusion and moderate stenosis with flattening of the exiting L5 nerve roots bilaterally. 3. At L3-4 there is a moderate to severe central stenosis and lateral recess stenosis with mild foraminal stenosis. 4. No acute fracture or spondylolisthesis. Trace Holloway MD Lower Extremity Ultrasound 01/23/17 Signed Impressions: Service Date/Time: Monday, January 23, 2017 09:53 - CONCLUSION: Bilateral focal lower extremity DVT involving the posterior tibial veins. Angeol Garrido MD Cervical Spine MRI 01/23/17 Signed Impressions: Service Date/Time: Monday, January 23, 2017 17:01 - CONCLUSION: 1. Multilevel cervical spine degenerative changes as above. 2. Mild degrees of spinal stenosis at C3/C4-C6/C7. No cord compression or cord signal abnormality. 3. Age indeterminate left paracentral/foraminal disc protrusion at C6/C7. 4. Multilevel foraminal stenosis, most severe on the left at C6/C7. Please see individual levels above. 5. No fracture or subluxation of the cervical spine. Angelo Garrido MD Brain MRI 01/23/17 0000 Signed Impressions: Service Date/Time: Monday, January 23, 2017 17:01 - CONCLUSION: 1. No acute stroke or other acute intracranial abnormality demonstrated. 2. Moderate severity chronic white matter changes, nonspecific but most likely related to chronic small vessel disease. 3. Few scattered tiny lacunar infarcts of the brainstem. 4. Given the findings are not entirely specific, clinical evaluation for possible multiple sclerosis recommended. Angelo Garrido MD Knee X-Ray 01/22/172053 Signed Impressions: Service Date/Time: Sunday, January 22, 2017 21:17 - CONCLUSION: 1. Evidence of moderate to large joint effusion. 2. No acute fracture or malalignment. 3. Mild 3 compartment osteoarthritic change. Benjamin Person MD Hip and Pelvis X-Ray 01/22/[id number] Signed Impressions: Service Date/Time: Sunday, January 22, 2017 21:10 - CONCLUSION: 1. Mild to moderate degenerative change of both hips with no acute fracture or malalignment. There is flattening and remodeling of the right humeral head. Benjamin Person MD Physical Exam GENERAL: Awake and alert, on T-piece, not in distress SKIN: Cool and dry. No generalized rash. Edematous in extremities EYES: [place] conjunctiva. No petechia or hemorrhage. EARS, NOSE AND THROAT: Nose without bleeding or purulent nasal discharge. Dry oral mucosa NECK: Trach site ok. CARDIOVASCULAR: Regular rate and rhythm. Soft heart sounds. No murmurs RESPIRATORY: Coarse BS bilaterally, decreased at bases. ABDOMEN: Soft, not tender, not distended, PEG site ok. No guarding EXTREMITIES: No clubbing, cyanosis. Edema feet better; edema hands better, still present NEUROLOGICAL: awake and following commands PSYCHIATRIC: Calm and cooperative LINE: Lines with no evidence of infection Assessment & Plan Remarks IMPRESSION New Sepsis (fever and leucocytosis), temps up again x 1, and WBC up to 23K today Aspiration Pneumonia in health care setting. Mucus plugs with atelectasis. - completed Zerbaxa; on Tobra nebs Worsening leucocytosis. ESBL in urine in recent past. 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 PNA, ?plugging/atelctasis - MDR, I to Zerbaxa, has been tolerating T-piece - likely effusion adding to his respiratory problems, on top of his plugging /secretions Large R retroperitoneal bleed, S/P multiple transfusions and S/P coiling of bleeders Anemia, due to bleed, retroperitoneal MSSA sepsis, due to suppurative thrombophlebitis LUE, S/P I and D and excision of portion of cephalic vein - S/P Rx Respiratory failure, has had several intubations - reintubated again 02/28, extubated 03/11 - reintubated again - S/P trach 03/14 Recent Rx 7 days high dose solumedrol for transverse myelitis Wu LE DVT has IVC filter placed 01/25 - ?hypercoagulable state Chronic kidney disease, worsening creatinine - shock and compression of ureter by hematoma Known DM, HTN RECOMMENDATION 2 BC today UA and C/S Stool for C diff Continue Tobra nebs Add Flagyl and Diflucan CXR tomorrow Monitor temps Monitor progress Follow CBC D/W RN Dr Becerril covering this weekend Irene Edwards MD Apr 20, 2017 14:35
[2017-04-20] MEDS: metroNIDAZOLE 500 MG TAB PO SCH ×2 (15:57→22:09)
[2017-04-20] MEDS: FLUCONAZOLE 100 MG TAB PO SCH (15:57)
[2017-04-20] MEDS: ATORVASTATIN 10 MG TAB PO SCH (22:09)
[2017-04-20] MEDS: ALPRAZolam 0.25 MG TAB PO PRN (22:10)
[2017-04-21] VITALS (8 sets, daily range): BP systolic 111–140; BP diastolic 66–79; PULSE 102–120; RESP 18–28; TEMP 98.1–99; O2SAT 94–100
[2017-04-21 00:30] LABS: BACTERIA, URINE RARE /hpf; BLOOD, URINE MOD (NEG); COMMENT (UR) CATH-CULTURE IND; CULTURE IF INDICATED CATH CULTURE IND; GLUCOSE,URINE NEG (NEG); KETONE, URINE NEG (NEG); MUCUS URINE FEW /lpf (OCC); NITRITE,URINE NEG (NEG); URINE COLOR LIGHT-YELLOW (YELLW/STRAW)
[2017-04-21] MEDS: oxyCODONE HCL ORAL CONC 5 MG/0.25 ML SYRINGE PO SCH ×7 (03:20→22:01)
[2017-04-21] MEDS: SODIUM CHLOR 0.9% 1000 ML INJ 1,000 ML IV SCH ×3 (03:21→21:57)
[2017-04-21] MEDS: HYDROCORTISONE 10 MG TAB PO SCH ×2 (06:11→17:33)
[2017-04-21] MEDS: FREE WATER G-TUBE SCH ×3 (06:11→17:33)
[2017-04-21] MEDS: metroNIDAZOLE 500 MG TAB PO SCH ×2 (06:12→15:23)
[2017-04-21] MEDS: RESP: TOBRAMYCIN SULFATE 80 MG/2 ML NEB NEB SCH ×2 (07:52→20:26)
[2017-04-21] MEDS: INSULIN ASPART SUPPLEMENTAL SCALE SQ SCH ×4 (08:00→21:00)
[2017-04-21] MEDS: INSULIN DETEMIR 100 UNITS/ML VIAL SQ SCH ×2 (09:00→22:00)
[2017-04-21] MEDS: LANSOPRAZOLE SOLUTAB 30 MG TAB NG SCH ×2 (09:25→21:58)
[2017-04-21] MEDS: TAMSULOSIN HCL 0.4 MG CAP PO SCH ×2 (09:25→21:59)
[2017-04-21] MEDS: POTASSIUM CHLORIDE 25 MEQ EFFERVESCENT TAB PO SCH ×2 (09:25→21:59)
[2017-04-21] MEDS: QUEtiapine FUMARATE 25 MG TAB PO SCH (09:25)
[2017-04-21] MEDS: CHOLESTYRAMINE 4 GM PACKET G-TUBE SCH ×2 (09:26→20:15)
[2017-04-21] MEDS: CHLORHEXIDINE 0.12% (ORAL KIT) 15 ML CUP MT SCH ×2 (09:27→20:15)
[2017-04-21] MEDS: COLLAGENASE OINT 30 GM TUBE TOPICAL SCH (09:27)
[2017-04-21] MEDS: SODIUM CHLORIDE 0.9% FLUSH 10 ML FLUSH IV FLUSH SCH ×3 (09:28→21:00)
[2017-04-21] MEDS: LACTOBACILLUS ACIDOPHILUS TAB PO SCH ×3 (09:35→17:33)
[2017-04-21 10:00] LABS: C. DIFF EPI 027 INVALID (NEGATIVE)
[2017-04-21] MEDS: RESP: ALBUTEROL 2.5 MG/IPRATROPIUM 0.5 MG NEB (PRN) NEB (11:08)
--- NOTE | 2017-04-21 11:15 | HHI.CCPN ---
Subjective Remarks/Hospital Course Date of admission: 01/22 Date of critical care medicine consult 02/10 due to acute hypoxemic respiratory failure requiring emergent intubation 62-year-old male with a past medical history of hypertension, hyperlipidemia, diabetes mellitus, gout, uric acid kidney stones, kidney disease of unknown stage who originally presented to [facility] emergency department on 01/22 after a fall in which he sustained a right distal ulna fracture. He had been experiencing a gradual primarily lower extremity weakness as well as upper extremity weakness that was progressive. Neurology consult was obtained. MRI revealed no acute stroke. He had multifocal white matter changes. Tiny lacunar infarcts of the brainstem. Lumbar MRI report states L4-L5 disc protrusion with cetnral canal stenosis. Dr. Blackwell evaluated and states no cord compression on MRI C/T spine and recommended nonoperative management. Symptoms were felt to be consistent with transverse myelitis and he underwent Solumedrol 250 mg IV q6 hours 01/27-02/02. He also was found to have occlusive thrombus in the bilateral posterior tibial veins. Heparin was being avoided because he had traumatic lumbar puncture on 01/26 and 02/01. IVC filter was placed 01/25. He was undergoing physical therapy, reportedly making some improvements with plan to eventually discharged home with his son (max assist standing, and bed to chair per PT note). Apparently he had some vomiting the evening of 02/09 and additional vomiting on 02/10. He had a fever 102.8 on 02/09. Last recorded bowel movement was 02/03. Tonight he had acute onset of severe hypoxemia and respiratory distress. [facility] called and he was brought emergently to [facility] where his sats were 64% on 100% nonrebreather with mean arterial pressure 44. He was emergently intubated, CVL and art line placed. He is in septic shock. SUBJ: 02/11: Patient remains intubated sedated, critically ill. FiO2 reduced to 80% after increasing PEEP to 12. In severe septic shock Levophed at 16 mcg/m, vasopressin at 0.04 international units. D/W vascular surgery Dr. Enciso. He performed bedside Left upper extremity incision and debridement and excision of septic cephalic vein. 02/12: Remains intubated sedated profoundly septic, in shock on vasopressin and 7 mcg/min Levophed. FiO2 has improved to 45%, WBC count remains elevated with 20 ,000 white count significant left shift. Slight improvement in creatinine 2.9 urine output 750 ml 24 hours. 2-D echo shows LV ejection fraction 20-25%, no vegetation reported. Blood cultures 4 staph aureus. Wound culture pending 02/13: Remains critically ill but stable to improving. WBC count is down to 16, creatinine improving to 2.36. Off all pressors. Urine output also improving. 1.5L in 24 hours 02/14: Extubated 02/13. Tolerating well. WBC now down to 12.8. Creat improving 2.3 to 2. UO 3.4L. remains off all pressors. Was started on Precedex yesterday night for agitation, currently on 0.5 g per KG per hour. Chest x-ray shows left more than right air space disease 02/20/17 Re consult: 62-year-old male who was originally admitted for lower extremity weakness and found to have what was thought to be possible transverse myelitis. His hospital course his included a healthcare associated pneumonia, septic thrombophlebitis, DVT. He was most recently in the hospital floor where he had significant nausea and vomiting and diarrhea. His C. difficile test was recently negative. However, he has experienced worsening acute on chronic renal failure, hypotension, tachycardia, and severe hypoxemia. He did have a bout of vomiting earlier today, and his hospitalist attending suspects that he may have aspirated. He arrives by rapid response to the ICU with a nonrebreather in place in severe respiratory distress with SPO2 of 85%. I emergently intubate the patient, see separate procedure note for details. At this point the patient was hypotensive and tachycardic. He does have a history of an EF of 20%, however clinically he appears in florid septic shock. I placed central line and arterial line started vasopressors and gentle IV fluid resuscitation with 1 L of LR. Patient today was empirically broadened to vancomycin and Zosyn from his oxacillin which was initially treating MSSA bacteremia. He is recultured. Critical-care medicine is consulted to evaluate and manage his worsening multiorgan system failure and decompensated septic shock 02/21: Patient remains intubated sedated. Becomes anxious tachypnea on sedation lightening. Chest x-ray shows mild left lower lobe infiltrate. WBC count is slightly improved today from 23.2 t0 21. C Diff negative. UO adequate, creat slightly worsening. 1.57 today 02/22: Remains intubated sedated tolerated CPAP yesterday, plan is for EGD/ Colonscopy. WBC count back to normal. UO adequate. Creat stable 02/23: Tolerating CPAP trials following commands. Will do a spontaneous breathing trials. Status post EGD colonoscopy yesterday -Gastritis, esophagitis. Diverticulosis and multiple polyps. Urine output adequate but creatinine increasing to 1.7 with patient requiring multiple straight catheterization. We'll reinsert Sloan. 02/24: Breathing comfortably 24 hours after extubation. Protects airway well. 02/25: Excoriate bottom, will place rectal FMS. Start pureed diet. 02/26: Afebrile. Complaining of nausea and vomiting this afternoon. Increased stool output. Continue potassium replacement today. 02/27: 10 PM overnight, acutely hypotensive. Received 3 units PRBCs. Antibiotic coverage broadened to piperacillin/tazobactam, cortisol and 1 dose of vancomycin. Oxacillin drip currently on hold. Symptomatically, patient continues to vague abdominal pain/nausea vomiting which is unchanged for the past several days. Lipase elevated yesterday. Lactic acid normal. Troponin normal. Urinary retention after removal of Sloan. Straight catheter 1300. Cc 02/28: New diagnosis large retroperitoneal hematoma. Received 10 PRBC, 14 FFP, 2 platelets, 1 cryo-, 6 g calcium chloride, 2 is magnesium sulfate and 4 mg Bumex. CTA abdomen revealed possible arterial bleeds iliac, lumbar. Patient is currently on norepinephrine and epinephrine drips and possible need right nephrostomy tube placement due to large hematoma compressing ureter. Intra-abdominal bladder pressures are currently 13 03/01: Afebrile. Received 25 g albumin and 1 unit PRBCs overnight. Intra- abdominal bladder pressures currently 19. Currently on 3 micrograms per minute of norepinephrine. [id number] 1 out of 4 on 4 mics grams per kilogram per minute of cisatracurium. 03/02: Slightly hypothermic overnight. Hemoglobin appears to have stabilized. Troponin bump overnight likely secondary to demand ischemia from hypotension. Hemodynamically stable off all vasopressors. 03/03: Received 1 PRBCs overnight. 3 units currently. Off all vasopressors. Likely rebleeding. Stool is dark. 03/04: Remains unstable. Ventilator dependent. 03/05: afebrile. hgb stable. 03/06: bumex drip started overnight. good uop after bumex initiated. still grossly volume overloaded. Cr downtrending. more awake with transition to propofol. still too volume overloaded to tolerate extubation. hgb stable. 03/07: Afebrile. Tolerating tube feeds at goal with Nepro. Positive BM. On low-dose fentanyl and propofol drips. Potassium currently being replaced. 03/08: Eyes will open on ventilator. Afebrile. Tolerating tube feeding. Failed PSV trial yesterday due to apnea. 03/09: Following commands. Tmax 101. Tolerating tube feeding. One hour PSV trial yesterday. Currently tolerating well so far today 1.5 hours 03/10: Low-grade temperatures. Tolerating PSV trial 10 hours yesterday. Currently at 5/5 at 35%. We'll probably attempt extubation a.m. after hemodialysis. 03/11: Extubated currently in 4 L nasal cannula. Thick secretions thick clear with cough. Currently afebrile. Tolerating diet previously. 03/12: Sleepy this morning but arouses. Following commands. Refusing diet at the present time. On 2 L nasal cannula. 03/13: Patient reintubated last night for worsening respiratory status. Currently sedated on mechanical ventilation. Became hypotensive following intubation and is on Levophed 20 mics per minute. 03/14: Sedated, orally intubated on mech vent at the time of my evaluation this AM, subsequently underwent perc trach placement. Remains on levophed for pressor support. Transfused 1 unit PRBCs today. Persisten 03/15: Trach site clean, dry. CXR with bilateral basilar infiltrates. 03/16: Pulmonary congestion persists. Clinical condition not improving. Prognosis becoming increasingly bleak. 03/17: Glucose intolerance worse. No improvement in neurological function. 03/18: Remains on mechanical ventilation via tracheostomy. Off pressors now. Neurologic status remains poor. 03/19: Drowsy, encephalopathic, arousable. On mechanical ventilation via tracheostomy. Levemir increased for hyperglycemia today. Remains off pressors 03/20: More awake, moves both upper extremities. On mechanical ventilation via tracheostomy. Daily C Pap trials ongoing. 03/21: Awake and alert. On mechanical ventilation via tracheostomy. Opens and closes eyes on command. 03/22: Awake and alert. Tolerated T PIECE for 7 hours yesterday. Dialyzed today. 03/23: Currently on T piece trial. Status post dialysis yesterday on 3 L. Awake and alert. Wants to eat. Subjective 03/24: Currently afebrile. Hemodialysis catheter discontinued yesterday from left IJ. Persistent leukocytosis noted. Potassium will be replaced. Furosemide 40 mg twice a day IV to 20 mg IV twice a day 03/25: WBC count unchanged. Patient on T piece with humidified air greater than 48 hours, tolerating it well. Reconsulted 04/12: The patient was transferred emergently from the floor/ [facility]. Patient was initially seen by ledge man Dr. Estrada, and the patient was noted to be tachypneic on T piece of 40%. ABGs were performed which showed a PaO2 of 60 on T piece of FiO2 of 40%. Chest x-ray was performed which showed loss of entire left hemidiaphragm equity sales assistant consolidation in the left lower lobe. Concern for mucus plugging versus fluid. The patient was transferred emergently to [facility] placed on a ventilator CT of the chest is pending. Upon arrival in the room the patient is alert and oriented, mouthing words, nodding head to yes and no questions O2 sat is 100% but patient is currently on mechanical ventilation. Currently in no respiratory distress. 04/13: Tmax 99.8. The patient's oxygen requirements have decreased currently FiO2 35% with a PaO2 1 blood gas of 85, O2 saturation 100%. No respiratory distress noted. Patient underwent CT of the chest yesterday noted pleural effusions left greater than right, diagnostic/and therapeutic CT thoracentesis plan for this a.m.. 04/14: Patient underwent CT-guided thoracentesis of the right side with approximately 600 cc withdrawn. Today ledge man Dr. LABOY in and up size indwelling 6.0 Shiley to a 8.0 Shiley. Minimal bleeding noted around the site. X-ray improving. Patient started on CPAP trials today, as well as tube feeds were initiated. 04/15: Placed on T piece this morning via tracheostomy. Appears to be tolerating it. Laying in bed not in any acute distress. 04/16: Awake and alert. Tolerating T piece. Tolerating PEG feeds. 04/17: Awake and alert. Tolerating T piece. Tolerating tube feeds via PEG 04/18: Awake and alert. Tolerating TPs. Tolerating tube feeds. Passed swallow eval 04/19: Awake and alert. Remains on T piece. Wants to move out of ICU as he indicates to me once again as he has for the past few days. Awaiting CIC bed 04/20: Awake and alert. Remains on T piece. Developed hypotension last night for which she was transiently on Levophed however has been off since early this morning. ID adjusting antibiotics and working up for new sepsis. 04/21: Awake and alert. On T piece. Awaiting [facility]IC bed for the last few days Objective Vital Signs Date Time Temp Pulse Resp B/P (MAP) Pulse Ox O2 Delivery O2 Flow Rate FiO2 04/21/17 07:56 96 T-piece 35 04/21/17 04:00 110 04/21/17 04:00 98.8 18 130/77 (94) 04/20/17 20:21 6.00 Intake and Output 04/21/17 04/21/17 04/22/17 08:00 16:00 00:00 Intake Total 4136 ml Output Total 2150 ml Balance 1986 ml Result Diagram: 04/20/17 0425 04/20/17 0100 Imaging Last Impressions Chest CT 04/12/17 1558 Signed Impressions: Service Date/Time: March 17:51 - CONCLUSION: 1. Slight increase in size of bilateral effusions and basilar atelectasis, left greater than right compared with February 27. Tracheostomy in good position. Trace Holloway MD Chest X-Ray 04/12/17 1248 Signed Impressions: Service Date/Time: March 10:59 - CONCLUSION: New hazy opacity involving most of the left hemithorax suggesting either large pleural effusion or developing infiltrates. Stable left lower lung consolidation. Candido Patton MD Renal Ultrasound 04/02/17 0000 Signed Impressions: Service Date/Time: Sunday, April 02, 2017 16:59 - CONCLUSION: Limited exam with the left kidney being unable to be evaluated in the bladder not distended. There do appear to be multiple shadowing stones at the right kidney without hydronephrosis. Angelo Manzo MD Wrist X-Ray 03/27/17 0000 Signed Impressions: Service Date/Time: Monday, March 27, 2017 13:21 - CONCLUSION: 1. No acute fracture is identified. A portion of the previously documented distal ulna fracture remains visualized. 2. 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 Angelo Allen MD Aortography 02/28/17 0000 Signed Impressions: Service Date/Time: Tuesday, February 28, 2017 08:01 - CONCLUSION: 1. Active hemorrhage from distal right lateral sacral and iliolumbar branches successfully coil and Gelfoam embolized, as above. Juan Bhakta MD Abdomen/Pelvis CT 02/28/17 0000 Signed Impressions: Service Date/Time: Tuesday, February 28, 2017 06:51 - CONCLUSION: 1. The right retroperitoneal hematoma has increased in size, as above. There are 2 serpiginous arterially enhancing structures visualized, one in the right psoas muscle and another extending into the hematoma at the right iliac fossa. These could represent sites of continued active bleeding. 2. Stable moderate size left and small right pleural effusion with associated compressive atelectasis. 3. Stable small volume of free fluid in the abdomen and pelvis. There is also anasarca. The findings concerning the retroperitoneal hematoma were discussed with Dr. Aguiar via telephone at approximately 7: 10 AM on 02/28/2017. Angelo Allen MD Abdomen X-Ray 02/26/17 0000 Signed Impressions: Service Date/Time: Sunday, February 26, 2017 14:52 - CONCLUSION: 1. Nonobstructive bowel gas pattern. Juan Bhakta MD Upper Extremity Ultrasound 02/10/17 0000 Signed Impressions: Service Date/Time: Friday, February 10, 2017 18:46 - CONCLUSION: Occlusive thrombus in the cephalic and basilic veins. Benjamin Person MD Lung Scan-V Nuclear Medicine 02/10/17 0000 Signed Impressions: Service Date/Time: Friday, February 10, 2017 22:17 - CONCLUSION: Low probability pulmonary embolism. Candido Patton MD Head CT 02/10/17 0000 Signed Impressions: Service Date/Time: Friday, February 10, 2017 23:51 - CONCLUSION: Negative noncontrast CT brain. Candido Patton MD Lumbar Puncture Fluoroscopy 9/14/17 0000 Signed Impressions: Service Date/Time: January 09:35 - CONCLUSION: Uncomplicated fluoroscopically guided lumbar puncture. CSF was clear. Nabeel Peralta MD Head Magnetic Resonance Angiography 01/27/17 Signed Impressions: Service Date/Time: Friday, January 27, 2017 10:33 - CONCLUSION: No intracranial vascular abnormality is identified. There is no aneurysm visualized. Angelo Allen MD IVC Filter Placement X-Ray 01/25/17 Signed Impressions: Service Date/Time: January 10:29 - CONCLUSION: Uncomplicated inferior vena cava filter placement as above. Yung Fowler MD Thoracic Spine MRI 01/24/17 Signed Impressions: Service Date/Time: Tuesday, January 24, 2017 22:29 - CONCLUSION: 1. Mild degenerative spondylosis most prominently at T11-L1 with slight effacement of the anterior thecal sac and left lateral recess. No significant neural foraminal stenosis. 2. No acute fracture. Juan Bhakta MD Lumbar Spine MRI 01/23/17 Signed Impressions: Service Date/Time: Monday, January 23, 2017 17:01 - CONCLUSION: 1. At L4-5 is a broad-based disc protrusion with severe central canal and lateral recess stenosis and flattening of the exiting right L4 nerve root. 2. L5-S1 there is a disc protrusion and moderate stenosis with flattening of the exiting L5 nerve roots bilaterally. 3. At L3-4 there is a moderate to severe central stenosis and lateral recess stenosis with mild foraminal stenosis. 4. No acute fracture or spondylolisthesis. Trace Holloway MD Lower Extremity Ultrasound 01/23/17 Signed Impressions: Service Date/Time: Monday, January 23, 2017 09:53 - CONCLUSION: Bilateral focal lower extremity DVT involving the posterior tibial veins. Angelo Garrido MD Cervical Spine MRI 01/23/17 Signed Impressions: Service Date/Time: Monday, January 23, 2017 17:01 - CONCLUSION: 1. Multilevel cervical spine degenerative changes as above. 2. Mild degrees of spinal stenosis at C3/C4-C6/C7. No cord compression or cord signal abnormality. 3. Age indeterminate left paracentral/foraminal disc protrusion at C6/C7. 4. Multilevel foraminal stenosis, most severe on the left at C6/C7. Please see individual levels above. 5. No fracture or subluxation of the cervical spine. Angelo Garrido MD Brain MRI 01/23/17 0000 Signed Impressions: Service Date/Time: Monday, January 23, 2017 17:01 - CONCLUSION: 1. No acute stroke or other acute intracranial abnormality demonstrated. 2. Moderate severity chronic white matter changes, nonspecific but most likely related to chronic small vessel disease. 3. Few scattered tiny lacunar infarcts of the brainstem. 4. Given the findings are not entirely specific, clinical evaluation for possible multiple sclerosis recommended. Angelo Garrido MD Knee X-Ray 01/22/[id number] Signed Impressions: Service Date/Time: Sunday, January 22, 2017 21:17 - CONCLUSION: 1. Evidence of moderate to large joint effusion. 2. No acute fracture or malalignment. 3. Mild 3 compartment osteoarthritic change. Benjamin Person MD Hip and Pelvis X-Ray [id number]/22/[id number] Signed Impressions: Service Date/Time: Sunday, January 22, 2017 21:10 - CONCLUSION: 1. Mild to moderate degenerative change of both hips with no acute fracture or malalignment. There is flattening and remodeling of the right humeral head. Benjamin Person MD Last Impressions Chest X-Ray 03/14/17 0000 Signed Impressions: Service Date/Time: Tuesday, March 14, 2017 13:41 - CONCLUSION: 1. Tracheostomy in good position. 2. Left lower lung infiltrates and left pleural effusion. Candido Patton MD Aortography 02/28/17 0000 Signed Impressions: Service Date/Time: Tuesday, February 28, 2017 08:01 - CONCLUSION: 1. Active hemorrhage from distal right lateral sacral and iliolumbar branches successfully coil and Gelfoam embolized, as above. Juan Bhakta MD Abdomen/Pelvis CT 02/28/17 0000 Signed Impressions: Service Date/Time: Tuesday, February 28, 2017 06:51 - CONCLUSION: 1. The right retroperitoneal hematoma has increased in size, as above. There are 2 serpiginous arterially enhancing structures visualized, one in the right psoas muscle and another extending into the hematoma at the right iliac fossa. These could represent sites of continued active bleeding. 2. Stable moderate size left and small right pleural effusion with associated compressive atelectasis. 3. Stable small volume of free fluid in the abdomen and pelvis. There is also anasarca. The findings concerning the retroperitoneal hematoma were discussed with Dr. Aguiar via telephone at approximately 7: 10 AM on 02/28/2017. Angelo Allen MD Chest CT 02/27/17 0000 Signed Impressions: Service Date/Time: Monday, February 27, 2017 18:12 - CONCLUSION: 1. Bilateral pleural effusions with bibasilar atelectasis, left greater than right. Tom Sanchez MD Abdomen X-Ray 02/26/17 0000 Signed Impressions: Service Date/Time: Sunday, February 26, 2017 14:52 - CONCLUSION: 1. Nonobstructive bowel gas pattern. Juan Bhakta MD Upper Extremity Ultrasound 02/10/17 0000 Signed Impressions: Service Date/Time: Friday, February 10, 2017 18:46 - CONCLUSION: Occlusive thrombus in the cephalic and basilic veins. Benjamin Person MD Lung Scan- Nuclear Medicine 02/10/17 0000 Signed Impressions: Service Date/Time: Friday, February 10, 2017 22:17 - CONCLUSION: Low probability pulmonary embolism. Candido Patton MD Head CT 02/10/17 0000 Signed Impressions: Service Date/Time: Friday, February 10, 2017 23:51 - CONCLUSION: Negative noncontrast CT brain. Candido Patton MD Wrist X-Ray 02/06/17 0000 Signed Impressions: Service Date/Time: Monday, February 06, 2017 12:50 - CONCLUSION: Minimally displaced distal radius and ulnar fractures. Armando Dodd MD Lumbar Puncture Fluoroscopy 02/01/17 0000 Signed Impressions: Service Date/Time: January 09:35 - CONCLUSION: Uncomplicated fluoroscopically guided lumbar puncture. CSF was clear. Nabeel Peralta MD Head Magnetic Resonance Angiography 01/27/17 0000 Signed Impressions: Service Date/Time: Friday, January 27, 2017 10:33 - CONCLUSION: No intracranial vascular abnormality is identified. There is no aneurysm visualized. Angleo Allen MD IVC Filter Placement X-Ray 01/25/17 Signed Impressions: Service Date/Time: January 10:29 - CONCLUSION: Uncomplicated inferior vena cava filter placement as above. Yung Fowler MD Thoracic Spine MRI 01/24/17 Signed Impressions: Service Date/Time: Tuesday, January 24, 2017 22:29 - CONCLUSION: 1. Mild degenerative spondylosis most prominently at T11-L1 with slight effacement of the anterior thecal sac and left lateral recess. No significant neural foraminal stenosis. 2. No acute fracture. Juan Bhakta MD Renal Ultrasound 01/23/17 Signed Impressions: Service Date/Time: Monday, January 23, 2017 08:53 - CONCLUSION: 1. Evidence of chronic parenchymal disease of both kidneys. No obstructive uropathy or other acute abnormality demonstrated. 2. Trace ascites, nonspecific. Angelo Garrido MD Lumbar Spine MRI 01/23/17 Signed Impressions: Service Date/Time: Monday, January 23, 2017 17:01 - CONCLUSION: 1. At L4-5 is a broad-based disc protrusion with severe central canal and lateral recess stenosis and flattening of the exiting right L4 nerve root. 2. L5-S1 there is a disc protrusion and moderate stenosis with flattening of the exiting L5 nerve roots bilaterally. 3. At L3-4 there is a moderate to severe central stenosis and lateral recess stenosis with mild foraminal stenosis. 4. No acute fracture or spondylolisthesis. Trace Holloway MD Lower Extremity Ultrasound 01/23/17 Signed Impressions: Service Date/Time: Monday, January 23, 2017 09:53 - CONCLUSION: Bilateral focal lower extremity DVT involving the posterior tibial veins. Angelo Garrido MD Cervical Spine MRI 01/23/17 Signed Impressions: Service Date/Time: Monday, January 23, 2017 17:01 - CONCLUSION: 1. Multilevel cervical spine degenerative changes as above. 2. Mild degrees of spinal stenosis at C3/C4-C6/C7. No cord compression or cord signal abnormality. 3. Age indeterminate left paracentral/foraminal disc protrusion at C6/C7. 4. Multilevel foraminal stenosis, most severe on the left at C6/C7. Please see individual levels above. 5. No fracture or subluxation of the cervical spine. Angelo Garrido MD Brain MRI 01/23/17 0000 Signed Impressions: Service Date/Time: Monday, January 23, 2017 17:01 - CONCLUSION: 1. No acute stroke or other acute intracranial abnormality demonstrated. 2. Moderate severity chronic white matter changes, nonspecific but most likely related to chronic small vessel disease. 3. Few scattered tiny lacunar infarcts of the brainstem. 4. Given the findings are not entirely specific, clinical evaluation for possible multiple sclerosis recommended. Angelo Garrido MD Knee X-Ray 01/22/[id number] Signed Impressions: Service Date/Time: Sunday, January 22, 2017 21:17 - CONCLUSION: 1. Evidence of moderate to large joint effusion. 2. No acute fracture or malalignment. 3. Mild 3 compartment osteoarthritic change. Benjamin Person MD Hip and Pelvis X-Ray 01/22/172053 Signed Impressions: Service Date/Time: Sunday, January 22, 2017 21:10 - CONCLUSION: 1. Mild to moderate degenerative change of both hips with no acute fracture or malalignment. There is flattening and remodeling of the right humeral head. Benjamin Person MD Objective Remarks GENERAL: 62-year-old male, resting in bed, on T piece, in no apparent distress nodding head to yes and no questions HEENT: Normocephalic. Atraumatic. Pupils equal, round, reactive. NECK: Tracheostomy in place, around trach site erythematous, yellowish drainage CHEST: On T piece, air entry decreased bilaterally . Scattered rhonchi, no wheezing CARDIOVASCULAR: S1-S2 regular, no gallop or murmur ABDOMEN distended. No rigidity. Umbilical hernia is reducible. No guarding. PEG tube in place : Positive scrotal edema Sloan in situ MUSCULOSKELETAL: Pulses 2+. 1+ bilateral upper and lower extremity edema. NEUROLOGICAL: Awake and alert, has spontaneous eye opening. Opens and closes eyes on command. Moves 4 limbs weakly to stimulation. Procedures 01/25/2017- Retrievable IVC Filter placement 01/26/17-lumbar puncture with fluoroscopy-by interventional radiology 02/01/17- lumbar puncture fluoroscopy by interventional radiology 02/10/17- Endotracheal Intubation 02/10/17-left IJ central venous line placed 02/10/17-left femoral arterial line placed 02/11/17-Diagnostic and therapeutic bronchoscopy with bronchoalveolar lavage 02/11/17-Left upper extremity incision and debridement with excision of septic cephalic vein 02/13/17- Extubated 02/20/17- endotracheal intubation 02/20/17- Left subclavian central line placement 02/20/17-Right radial A-line placement 02/22/17-EGD/colonoscopy 02/28/17-right radial a line 02/28/17- Endotracheal intubation 02/28/17- right sided introducer catheter placement 02/28/17- Right IJ central line placement 02/28/17-Right chest tube placement 02/28/17- Embolization of inferior and superior sacral branches of right internal iliac artery 03/01/17- Hemodialysis access catheter 03/03/17-Right IJ central line placement 03/11/17-Extubated 03/13/17- Endotracheal intubation 03/14/17-Tracheostomy placement, trach downsized to 6.0 Michelleley 03/30/17 03/15/17-PEG tube placement 04/11/17-CT Chest 04/13/17-thoracentesis right 600 cc removed Date of Insertion: Feb 20, 2017 Date of Insertion: Mar 03, 2017 Line: Central Venous Catheter Side: Right Location: Internal, Jugular A/P Problem List: (1) Septic shock ICD Code: A41.9 - Sepsis, unspecified organism; R65.21 - Severe sepsis with septic shock Status: Acute (2) Acute respiratory failure ICD Code: J96.00 - Acute respiratory failure, unspecified whether with hypoxia or hypercapnia Status: Acute (3) Thrombophlebitis arm ICD Code: I80.8 - Phlebitis and thrombophlebitis of other sites (4) Aspiration pneumonia ICD Code: J69.0 - Pneumonitis due to inhalation of food and vomit Status: Acute (5) Atelectasis of left lung ICD Code: J98.11 - Atelectasis Status: Acute (6) Quadriparesis ICD Code: G82.50 - Quadriplegia, unspecified Status: Acute (7) DVT (deep venous thrombosis) ICD Code: I82.409 - Acute embolism and thrombosis of unspecified deep veins of unspecified lower extremity (8) Altered mental status ICD Code: R41.82 - Altered mental status, unspecified Status: Acute (9) CKD (chronic kidney disease) stage 3, GFR 30-59 ml/min ICD Code: N18.3 - Chronic kidney disease, stage 3 (moderate) Status: Chronic (10) Acute renal failure ICD Code: N17.9 - Acute kidney failure, unspecified Status: Acute (11) Diabetes mellitus ICD Code: E11.9 - Type 2 diabetes mellitus without complications Status: Chronic (12) Distal end of ulna fracture, closed ICD Code: S52.609A - Unspecified fracture of lower end of unspecified ulna, initial encounter for closed fracture Status: Acute (13) Gout ICD Code: M10.9 - Gout, unspecified Status: Chronic Assessment and Plan Assessment: NEURO/PSYCH: Acute metabolic encephalopathy- persistent Quadriparesis secondary to suspected transverse myelitis Recurrent falls Suspected transverse myelitis. Received methylprednisolone 250 mg IV every 6 hours 01/27-02/02, started back on hydrocortisone 02/21/17, initially tapering to 50 mg IV every 8 hours starting received 1 dose at 2100 prior to becoming hypotensive. weaning hydrocortisone taper and stopped 03/09. Resumed hydrocortisone 50mg IV Q6hrly on 03/14 as patient became hypotensive following intubation on 03/13 requiring levophed. Continue Hydrocortisone 50 mg IV every 6 hours LP 01/26 and 02/01. CSF culture negative 01/26, 02/01 Oligoclonal bands negative. CSF/serum IgG index is not elevated. VDRL nonreactive. Cryptococcal antigen negative. Brain MRI 01/23 no acute stroke. Few scattered lacunar infarcts of the brainstem. Moderate chronic white matter changes. MRI cervical/thoracic spine- mild spinal stenosis C3/C4 to C6/C7. No cord compression. RPR negative Neurology has been following, Dr. Crenshaw. Repeat CT brain 02/10 - negative Continue PT/OT Continue oxycodone 10 mg every 4 hours scheduled RESP: Acute hypoxemic respiratory failure Healthcare associated pneumonia/Aspiration Pneumonia S/P Right-sided chest tube 02/28 Off mechanical ventilation, vent bundle, tolerating T piece. -On T piece >48 hours. Humidified room air Albuterol/ipratropium aerosols every 6 hours with albuterol aerosols every 2 hours prn VQ scan 02/10 low probability for PE. CT chest 02/10 - left lower lobe collapse and consolidation. CT chest 02/27 revealed right greater than left pleural effusions. Extubated 02/23. Intubated 02/28. Extubated 03/11, Reintubated on 03/13. Right-sided chest tube placement 02/28 park activities coordinator, removed 03/05. Failed attempt to wean successfully due to volume overload and multiple organ failure. underwent perc tracheostomy 03/14. CT chest 04/12-slight increase and bilateral effusions left greater than right basilar atelectasis CXR 04/13-moderate pleural effusion left with consolidation of the left lung Pulmonology following Dr. Estrada -Patient has a 6.0 Shiley may also need bronchoscopy to require a larger size trach or intubation. 04/13 CT guided thoracentesis scheduled emergently as discussed with Dr. Estrada - 600cc removed (right) 04/14-tracheostomy up sized to 8.0 Shiley by ledge man Dr. Estrada at bedside CV: Severe sepsis - resolved. Systolic heart failure likely chronic with ejection fraction 20-25% Hyperlipidemia History of hypertension Mild TR Sinus tachycardia Elevated troponin likely type II demand ischemia Restarted on Levophed on 03/09 for following intubation, titrated off after starting hydrocortisone. Started hydrocortisone stress dose on 03/14 (as patient has been on steroids and was just tapered off on 03/09.) Patient has on hypotensive twice when attempting to wean off stress dose hydrocortisone in the past. On Levophed transiently on 04/19 night. Currently on atenolol 25 mg twice a day. Continue amlodipine 5 mg daily As needed Nitropaste, labetalol and hydralazine for hypertension Atorvastatin 10 mg by mouth daily for dyslipidemia. Troponin 0.[address]-T changes. 2-D echocardiogram 01/11 revealed EF 20-25%. Mild TR. Pulmonary arterial pressures were normal around 20 Troponin 6.55 on 03/02. Currently on furosemide 20 mg IV twice a day per nephrology GI: Large right retroperitoneal hematoma Erosive esophagitis Adematous/hyperplastic colon polyps Severe acute protein calorie malnutrition Nausea/vomiting - resolved. Diarrhea Gastritis Diverticulosis Internal and external hemorrhoids Hiatal hernia Elevated lipase 02/27 CT chest/abdomen and pelvis - 9.4 x 7.5 renal and 16 x 12 cm right psoas muscle hematoma. Fluid around liver and spleen. Right-sided nephrolithiasis CTA abdomen 02/28 - possible blushing around iliac/lumbar vessels Discussed with IR. s/p attempted embolization CT abdomen and pelvis 02/10 atrophic left kidney. Bilateral inguinal hernias fat- containing. Nonobstructing 12 mm right kidney stone repeat CT abd/pelvis did not show evidence of obstruction. patient clinically has been having diarrhea (c. diff negative 02/19). also with nausea/vomiting of unclear etiology. EGD/Colonoscopy-02/22/17 showed gastritis esophagitis, hiatal hernia, diverticulosis and multiple polyps in descending colon and sigmoid which were snared biopsied. Biopsy pending Status post PEG tube placement Passed swallow eval. Initiate by mouth diet as well as tube feeds at night via PEG to supplement. 04/20 Lansoprazole 30 mg twice a day for GI prophylaxis FEN/RENAL: Acute kidney injury in the setting of Chronic kidney disease stage 3-4 History of uric acid kidney stones with prior stent BPH Nonfunctioning left kidney Acute intravascular volume overload Hypokalemia Sloan placed due to urinary retention and worsening creatinine Maintain Sloan secondary to urinary retention Monitor intake and output q1hr. Monitor electrolytes. RIOS/SPEP negative. 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 Recommended nephrostomy tube if obstruction Nephrology consulted, off hemodialysis. Making urine. Due to acute illness holding tamsulosin 0.4 mg by mouth daily for BPH ICU electrolyte replacement protocol Last IHD was 03/22 ID: Septic shock- resolved. Abscess and Suppurative thrombophlebitis left upper extremity MSSA bacteremia Klebsiella UTI ESBL positive Acute aspiration pneumonia/HCAP Previously treated with Bactrim, ertapenem, intermittent vancomycin, nafcillin Blood cultures 2, UA ESBL positive Klebsiella UTI Sputum 03/14 - Pseudomonas came back resistant to imipenem, Stenotrophomonas maltophilia Repeat blood cultures 2 and sputum 03/08 pending. Urine negative. Antibiotics per ID. on Tobra nebs, IV Flagyl and Diflucan started 04/20 per ID- Dr. Edwards. HEME: Acute blood loss anemia DVT, bilateral posterior tibial vein, IVC filter Septic thrombophlebitis with occlusive thrombus mid cephalic and basilic vein side Received 10 PRBC, 14 FFP, 2 platelets, 1 cryo-02/28 Received 3 units PRBCs Serial hemoglobins every 6 hours Recheck coags Ultrasound 01/23/17 - Bilateral lower extremity with occlusive posterior tibial vein DVTs. Heparin was initially started for DVT but was placed on hold due to LP with suspected traumatic tap. Currently holding full anticoagulation with enoxaparin 100 mg IV twice a day due to anemia as of 02/26 IVC filter was placed 01/25/17. Ultrasound LUE 02/10 occlusive thrombus mid cephalic vein, basilic vein.s. Transfuse 3 units PRBCs 02/27 Transfuse 2 units PRBCs 03/01. Transfused 1 unit PRBCs on 03/14 ENDO: Diabetes mellitus Hypoglycemia History of prior adrenal insufficiency with shock Gout EGD colonoscopy completed 02/22. gastritis and esophagitis, colon polyps Started Hydrocortisone 100 mg every 8 hours 02/21/17 (Recent high dose steroids use now hypotensive, hypoglycemic), steroids had been tapered off. Resumed stress dose steroids on 03/16 as patient back on Levophed for pressor support after intubation. Taper down to 10 mg by mouth every 12 hourly hydrocortisone now. Accu-Cheks to maintain euglycemia Novulin R every 4 hours. Low Regimen Currently on insulin detemir 25 units twice a day for hyperglycemia MSK: Right distal ulna fracture. Recommended nonoperative management. PROPH: Lansoprazole 30 mg twice a day twice a day for stress ulcer prophylaxis. Has IVC filter. Therapeutic enoxaparin was placed on hold for retroperitoneal hematoma ACCESS: right IJ CVL placed 03/03-03/20. A left IJ hemodialysis catheter placed 03/01 - 03/23. Left femoral A line placed 03/14 - discontinued 03/19 Dispo: Discussed with MARKETING INTELLIGENCE MANAGER at bedside Patient waiting for transfer out of ICU since 04/17. Consult placed to hospitalist service on 04/17. Hospitalist service to take over patient care when patient transferred out of ICU. Problem Qualifiers (1) Aspiration pneumonia: (2) DVT (deep venous thrombosis): Qualified Codes: I82.443 - Acute embolism and thrombosis of tibial vein, bilateral (3) Acute renal failure: Qualified Codes: N17.9 - Acute kidney failure, unspecified (4) Diabetes mellitus: (5) Gout: Devin Puente MD Apr 21, 2017 11:15
[2017-04-21] MEDS: FLUCONAZOLE 100 MG TAB PO SCH (15:23)
--- NOTE | 2017-04-21 16:17 | HHI.PR ---
Subjective Remarks on trach collar no new issues stll has some yellowish secretions Objective Vital Signs Date Time Temp Pulse Resp B/P (MAP) Pulse Ox O2 Delivery O2 Flow Rate FiO2 04/21/17 12:00 98.1 120 21 124/78 (93) 99 04/21/17 12:00 120 04/21/17 08:00 107 04/21/17 08:00 98.6 107 21 140/79 (99) 100 04/21/17 07:56 96 T-piece 35 04/21/17 07:12 21 04/21/17 07:00 98 T-Piece 40 04/21/17 04:00 110 04/21/17 04:00 98.8 110 18 130/77 (94) 97 04/21/17 00:00 98.8 102 20 111/66 (81) 99 04/21/17 00:00 102 04/20/17 20:21 99 T-piece 6.00 35 04/20/17 20:00 113 04/20/17 20:00 99.2 113 108/56 (73) 98 04/20/17 19:00 98 T-Piece 40 04/20/17 17:00 107 117/68 (84) 100 04/20/17 17:00 107 04/20/17 16:30 107 132/75 (94) 100 I/O 04/20/17 04/20/17 04/20/17 04/21/17 04/21/17 04/21/17 07:00 15:00 23:00 07:00 15:00 23:00 Intake Total 2700 ml 500 ml 2350 ml 4136 ml 975 ml Output Total 925 ml 1650 ml 2150 ml Balance 1775 ml 500 ml 700 ml 1986 ml 975 ml Intake Oral 150 ml IV Total 2000 ml 500 ml 1500 ml 3707 ml 975 ml Tube Feeding 700 ml 300 ml 429 ml Other 400 ml Output Urine Total 425 ml 1650 ml 1650 ml Stool Total 500 ml 0 ml 500 ml Result Diagram: 04/20/17 0425 04/20/17 0100 Objective Remarks GA: nad trach in place, mild purulant secretions around trach lungs: clear Heart: s1, S2 Abd: soft Neuro : no Change, awake followed simple commands Ext: mild edema, no cyanosis Assessment and Plan Assessment and Plan 1: S/p Trach 2. s/p VDRF 3. Severe Deconditioning 4. Large Exudative Pleural effusion s/p drainage 5. Hypotension better 6. S/P Psdeud PNA I will cont current tx plan Cont trach collar i will not downsize his trach anytime soon watch secretions no new intervention now ? scopalamine patch TF GI/DVT prevention ok to leave icu . Rishabh Estrada MD Apr 21, 2017 16:17
--- NOTE | 2017-04-21 19:21 | HHI.PR ---
Addendum to Inpatient Note Additional Information ID X cover for Dr Edwards pt seen around 17 00 full note to follow Beena Becerril MD Apr 21, 2017 19:21
--- NOTE | 2017-04-21 21:09 | HHI.IDPN ---
Subjective Subjective Remarks ID X cover for Dr Edwards pt seen around 00 ths is delayed entry Patient is a 62-year-old male, admitted to the hospital for evaluation of pain in his right wrist. He gave a history of falling about a week ago and apparently had immediate pain in the right wrist. He did not seek any medical attention initially because reportedly he was very busy. He eventually presented, and he was found to have a distal ulnar fracture on plain films. He also had some redness and swelling. Orthopedics saw the patient, and was being treated conservatively with the splint. During this hospitalization also he started complaining of generalized weakness but more so in his lower extremity than his upper extremity. He had swelling in both lower extremity which revealed evidence of DVT in the posterior tibial veins. Neurology had seen the patient and he underwent lumbar puncture which apparently was traumatic. Patient was therefore not given anticoagulation because of the traumatic LP, and he underwent placement of an IVC filter on January 25. Patient had another lumbar puncture on February 01. He was felt to have transverse myelitis, and he was given high-dose IV Solu-Medrol from January 27 to February 02. There was apparently some improvement in his weakness. The imaging studies done for his weakness showed some spinal stenosis, and neurosurgery was consult that and recommended that there was no surgical intervention to be done. Patient has been stabilizing, but last night apparently deteriorated, and he ended up getting intubated, and had significant hypotension requiring pressors. There was also an ultrasound done of his left upper extremity which showed DVT, and there was evidence of superior 2 thrombophlebitis. Vascular surgery was consult to it and he had IND on his left upper extremity. Patient has had some fevers since yesterday. 2 blood cultures were done yesterday and they're now reported as growing gram-positive cocci in [place] in clusters. He is currently sedated and intubated. He is on Levophed and vasopressin. A central line was placed as well as a femoral a line. He apparently had an IV in his left upper extremity and that was removed yesterday. Patient also has history of chronic kidney disease, and nephrology evaluated the patient. He was just being monitored for his renal insufficiency. Reconsulted 04/12 for low grade fever, leucocytosis, worsening CXR concern for new pneumonia. Pt had episode shawna fever 2 dauys ago up to 101 Notes reviewed Temps ok now , but had a fever 100 Tolerating T-piece BP ok Clinically doing well H/o DVTs bilateral LE S/P IVC filter. H/o DVTs bilateral WBC today is 23 K Abnormal UA with 84 WBC urine clx is P blood clx no growth @ 1 day Antibiotics fluconazole flagyl tobra INH Lines PIV - Line sites with no e.o infection Past Medical History Reviewed Allergies: Coded Allergies: levofloxacin (Verified Allergy, Severe, 01/22/17) Objective . Vital Signs Date Time Temp Pulse Resp B/P (MAP) Pulse Ox O2 Delivery O2 Flow Rate FiO2 04/21/17 20:26 94 T-piece 5.00 35 04/21/17 16:24 23 04/21/17 16:00 107 04/21/17 16:00 99.0 107 23 117/68 (84) 94 04/21/17 12:00 98.1 120 21 124/78 (93) 99 04/21/17 12:00 120 04/21/17 08:00 107 04/21/17 08:00 98.6 107 21 140/79 (99) 100 04/21/17 07:56 96 T-piece 35 04/21/17 07:00 98 T-Piece 40 04/21/17 04:00 110 04/21/17 04:00 98.8 110 18 130/77 (94) 97 04/21/17 00:00 98.8 102 20 111/66 (81) 99 04/21/17 00:00 102 04/21/17 04/21/17 04/22/17 15:00 23:00 07:00 Intake Total 975 ml 197 ml Output Total 700 ml Balance 975 ml -503 ml Intake Oral 60 ml IV Total 975 ml Tube Feeding 137 ml Output Urine Total 650 ml Stool Total 50 ml . Laboratory Tests Test 04/20/17 01:00 04/20/17 04:25 White Blood Count 15.8 TH/MM3 23.7 TH/MM3 Red Blood Count 2.98 MIL/MM3 3.27 MIL/MM3 Hemoglobin 8.1 GM/DL 8.9 GM/DL Hematocrit 25.8 % 28.5 % Mean Corpuscular Volume 86.7 FL 86.9 FL Mean Corpuscular Hemoglobin 27.3 PG 27.1 PG Mean Corpuscular Hemoglobin Concent 31.4 % 31.2 % Red Cell Distribution Width 17.1 % 17.1 % Platelet Count 270 TH/MM3 255 TH/MM3 Mean Platelet Volume 7.7 FL 8.3 FL Neutrophils (%) (Auto) 77.2 % Lymphocytes (%) (Auto) 8.1 % Monocytes (%) (Auto) 10.0 % Eosinophils (%) (Auto) 4.0 % Basophils (%) (Auto) 0.7 % Neutrophils # (Auto) 12.2 TH/MM3 Lymphocytes # (Auto) 1.3 TH/MM3 Monocytes # (Auto) 1.6 TH/MM3 Eosinophils # (Auto) 0.6 TH/MM3 Basophils # (Auto) 0.1 TH/MM3 CBC Comment AUTO DIFF Differential Total Cells Counted 100 Neutrophils % (Manual) 82 % Band Neutrophils % 6 % Lymphocytes % 4 % Monocytes % 2 % Eosinophils % 2 % Neutrophils # (Manual) 14.5 TH/MM3 Metamyelocytes 3 % Myelocytes 1 % Differential Comment FINAL DIFF MANUAL Laboratory Tests Test 04/20/17 01:00 Blood Urea Nitrogen 51 MG/DL Creatinine 1.78 MG/DL Random Glucose 153 MG/DL Total Protein 5.0 GM/DL Albumin 1.9 GM/DL Calcium Level 8.2 MG/DL Phosphorus Level 3.0 MG/DL Magnesium Level 1.7 MG/DL Alkaline Phosphatase 88 U/L Aspartate Amino Transf (AST/SGOT) 28 U/L Alanine Aminotransferase (ALT/SGPT) 10 U/L Total Bilirubin 0.3 MG/DL Sodium Level 140 MEQ/L Potassium Level 5.0 MEQ/L Chloride Level 110 MEQ/L Carbon Dioxide Level 23.4 MEQ/L Anion Gap 7 MEQ/L Estimat Glomerular Filtration Rate 39 ML/MIN Microbiology Date/Time Source Procedure Growth Status 04/20/17 15:19 Blood Peripheral Aerobic Blood Culture - Preliminary NO GROWTH IN 1 DAY Resulted 04/20/17 15:19 Blood Peripheral Anaerobic Blood Culture - Preliminary NO GROWTH IN 1 DAY Resulted 04/20/17 15:10 Blood Peripheral Aerobic Blood Culture - Preliminary NO GROWTH IN 1 DAY Resulted 04/20/17 15:10 Blood Peripheral Anaerobic Blood Culture - Preliminary NO GROWTH IN 1 DAY Resulted 04/20/17 22:30 Urine Catheterized Urine Urine Culture - Preliminary RESULTS PENDING Resulted Imaging Last Impressions Chest X-Ray 04/17/17 0000 Signed Impressions: Service Date/Time: Monday, April 17, 2017 03:40 - CONCLUSION: Mild left effusion and possible accompanying atelectasis or consolidation at the left base Angelo Manzo MD Thoracentesis 04/13/17 1054 Signed Impressions: Service Date/Time: Thursday, April 13, 2017 15:26 - CONCLUSION: Uncomplicated CT-guided right thoracentesis. Candido Mendoza Jr., MD Chest CT 04/12/17 1558 Signed Impressions: Service Date/Time: March 17:51 - CONCLUSION: 1. Slight increase in size of bilateral effusions and basilar atelectasis, left greater than right compared with February 27. Tracheostomy in good position. Trace Holloway MD Renal Ultrasound 04/02/17 0000 Signed Impressions: Service Date/Time: Sunday, April 02, 2017 16:59 - CONCLUSION: Limited exam with the left kidney being unable to be evaluated in the bladder not distended. There do appear to be multiple shadowing stones at the right kidney without hydronephrosis. Angelo Manzo MD Wrist X-Ray 03/27/17 0000 Signed Impressions: Service Date/Time: Monday, March 27, 2017 13:21 - CONCLUSION: 1. No acute fracture is identified. A portion of the previously documented distal ulna fracture remains visualized. 2. 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 Angelo Allen MD Aortography 02/28/17 0000 Signed Impressions: Service Date/Time: Tuesday, February 28, 2017 08:01 - CONCLUSION: 1. Active hemorrhage from distal right lateral sacral and iliolumbar branches successfully coil and Gelfoam embolized, as above. Juan Bhakta MD Abdomen/Pelvis CT 02/28/17 0000 Signed Impressions: Service Date/Time: Tuesday, February 28, 2017 06:51 - CONCLUSION: 1. The right retroperitoneal hematoma has increased in size, as above. There are 2 serpiginous arterially enhancing structures visualized, one in the right psoas muscle and another extending into the hematoma at the right iliac fossa. These could represent sites of continued active bleeding. 2. Stable moderate size left and small right pleural effusion with associated compressive atelectasis. 3. Stable small volume of free fluid in the abdomen and pelvis. There is also anasarca. The findings concerning the retroperitoneal hematoma were discussed with Dr. Aguiar via telephone at approximately 7: 10 AM on 02/28/2017. Angelo Allen MD Abdomen X-Ray 02/26/17 0000 Signed Impressions: Service Date/Time: Sunday, February 26, 2017 14:52 - CONCLUSION: 1. Nonobstructive bowel gas pattern. Juan Bhakta MD Upper Extremity Ultrasound 02/10/17 0000 Signed Impressions: Service Date/Time: Friday, February 10, 2017 18:46 - CONCLUSION: Occlusive thrombus in the cephalic and basilic veins. Benjamin Person MD Lung Scan-V Nuclear Medicine 02/10/17 0000 Signed Impressions: Service Date/Time: Friday, February 10, 2017 22:17 - CONCLUSION: Low probability pulmonary embolism. Candido Patton MD Head CT 02/10/17 0000 Signed Impressions: Service Date/Time: Friday, February 10, 2017 23:51 - CONCLUSION: Negative noncontrast CT brain. Candido Patton MD Lumbar Puncture Fluoroscopy 02/01/17 0000 Signed Impressions: Service Date/Time: January 09:35 - CONCLUSION: Uncomplicated fluoroscopically guided lumbar puncture. CSF was clear. Nabeel Peralta MD Head Magnetic Resonance Angiography 01/27/17 0000 Signed Impressions: Service Date/Time: Friday, January 27, 2017 10:33 - CONCLUSION: No intracranial vascular abnormality is identified. There is no aneurysm visualized. Angelo Allen MD IVC Filter Placement X-Ray 01/25/17 0000 Signed Impressions: Service Date/Time: January 10:29 - CONCLUSION: Uncomplicated inferior vena cava filter placement as above. Yung Fowler MD Thoracic Spine MRI 01/24/17 0000 Signed Impressions: Service Date/Time: Tuesday, January 24, 2017 22:29 - CONCLUSION: 1. Mild degenerative spondylosis most prominently at T11-L1 with slight effacement of the anterior thecal sac and left lateral recess. No significant neural foraminal stenosis. 2. No acute fracture. Juan Bhakta MD Lumbar Spine MRI 01/23/17 0000 Signed Impressions: Service Date/Time: Monday, January 23, 2017 17:01 - CONCLUSION: 1. At L4-5 is a broad-based disc protrusion with severe central canal and lateral recess stenosis and flattening of the exiting right L4 nerve root. 2. L5-S1 there is a disc protrusion and moderate stenosis with flattening of the exiting L5 nerve roots bilaterally. 3. At L3-4 there is a moderate to severe central stenosis and lateral recess stenosis with mild foraminal stenosis. 4. No acute fracture or spondylolisthesis. Trace Holloway MD Lower Extremity Ultrasound 01/23/17 Signed Impressions: Service Date/Time: Monday, January 23, 2017 09:53 - CONCLUSION: Bilateral focal lower extremity DVT involving the posterior tibial veins. Angelo Garrido MD Cervical Spine MRI 01/23/17 Signed Impressions: Service Date/Time: Monday, January 23, 2017 17:01 - CONCLUSION: 1. Multilevel cervical spine degenerative changes as above. 2. Mild degrees of spinal stenosis at C3/C4-C6/C7. No cord compression or cord signal abnormality. 3. Age indeterminate left paracentral/foraminal disc protrusion at C6/C7. 4. Multilevel foraminal stenosis, most severe on the left at C6/C7. Please see individual levels above. 5. No fracture or subluxation of the cervical spine. Angelo Garrido MD Brain MRI 01/23/17 Signed Impressions: Service Date/Time: Monday, January 23, 2017 17:01 - CONCLUSION: 1. No acute stroke or other acute intracranial abnormality demonstrated. 2. Moderate severity chronic white matter changes, nonspecific but most likely related to chronic small vessel disease. 3. Few scattered tiny lacunar infarcts of the brainstem. 4. Given the findings are not entirely specific, clinical evaluation for possible multiple sclerosis recommended. Angelo Garrido MD Knee X-Ray 01/22/[id number] Signed Impressions: Service Date/Time: Sunday, January 22, 2017 21:17 - CONCLUSION: 1. Evidence of moderate to large joint effusion. 2. No acute fracture or malalignment. 3. Mild 3 compartment osteoarthritic change. Benjamin Person MD Hip and Pelvis X-Ray [id number]/22/[id number] Signed Impressions: Service Date/Time: Sunday, January 22, 2017 21:10 - CONCLUSION: 1. Mild to moderate degenerative change of both hips with no acute fracture or malalignment. There is flattening and remodeling of the right humeral head. Benjamin Pesron MD Physical Exam GENERAL: Awake and alert, on T-piece, not in distress SKIN: Cool and dry. No generalized rash. Edematous in extremities EYES: [place] conjunctiva. No petechia or hemorrhage. EARS, NOSE AND THROAT: Nose without bleeding or purulent nasal discharge. Dry oral mucosa NECK: Trach site ok. CARDIOVASCULAR: Regular rate and rhythm. Soft heart sounds. No murmurs RESPIRATORY: Coarse BS bilaterally, decreased at bases. ABDOMEN: Soft, not tender, not distended, PEG site ok. No guarding rectal tube in palce with small amount of liquid stool EXTREMITIES: No clubbing, cyanosis. Edema feet better; edema hands better, still present NEUROLOGICAL: awake and following commands PSYCHIATRIC: Calm and cooperative LINE: Lines with no evidence of infection Assessment & Plan Remarks IMPRESSION New Sepsis (fever and leucocytosis), temps up again x 1, and WBC up to 23K today Aspiration Pneumonia in health care setting. Mucus plugs with atelectasis. - completed Zerbaxa; on Tobra nebs Worsening leucocytosis. ESBL in urine in recent past. 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 PNA, ?plugging/atelctasis - MDR, I to Zerbaxa, has been tolerating T-piece - likely effusion adding to his respiratory problems, on top of his plugging /secretions Large R retroperitoneal bleed, S/P multiple transfusions and S/P coiling of bleeders Anemia, due to bleed, retroperitoneal MSSA sepsis, due to suppurative thrombophlebitis LUE, S/P I and D and excision of portion of cephalic vein - S/P Rx Respiratory failure, has had several intubations - reintubated again 02/28, extubated 03/11 - reintubated again - S/P trach 03/14 Recent Rx 7 days high dose solumedrol for transverse myelitis Wu LE DVT has IVC filter placed 01/25 - ?hypercoagulable state Chronic kidney disease, worsening creatinine - shock and compression of ureter by hematoma Known DM, HTN ? recurrent UTI, h/o ESBL ? C.diff - invalid result, needs to be repeated RECOMMENDATION 2 BC today UA and C/S repeat stool for C diff Continue Tobra nebs change Flagyl to vanco po add meropenem cont Diflucan Monitor temps Monitor progress Follow CBC dw Beena Rose MD Apr 21, 2017 21:09
[2017-04-21] MEDS ORDERED: MISCELLANEOUS PHARMACY INFORMATION XX PRN (21:15)
[2017-04-21] MEDS ORDERED: ASP: Documented ESBL, MDR A baumannii or P. aeruginosa PRN (21:15)
[2017-04-21] MEDS: ATORVASTATIN 10 MG TAB PO SCH (21:59)
[2017-04-21] MEDS: VANCOMYCIN 500 MG VIAL (FOR ORAL USE ONLY) PO SCH (22:00)
[2017-04-21] MEDS: MEROPENEM INJ 1,000 MG in SODIUM CHLORIDE 0.9% INJ 100 ML IV SCH (22:50)
[2017-04-22] VITALS (8 sets, daily range): BP systolic 101–142; BP diastolic 51–73; PULSE 109–141; RESP 21–37; TEMP 98.7–99.5; O2SAT 61–100
[2017-04-22] MEDS: VANCOMYCIN 500 MG VIAL (FOR ORAL USE ONLY) PO SCH ×4 (02:46→21:17)
[2017-04-22] MEDS: oxyCODONE HCL ORAL CONC 5 MG/0.25 ML SYRINGE PO SCH ×6 (02:46→22:30)
[2017-04-22] MEDS: ALPRAZolam 0.25 MG TAB PO PRN ×3 (03:58→21:18)
[2017-04-22] MEDS: HYDROCORTISONE 10 MG TAB PO SCH ×2 (05:41→19:23)
[2017-04-22] MEDS: FREE WATER G-TUBE SCH ×5 (05:42→23:59)
[2017-04-22] MEDS: SODIUM CHLOR 0.9% 1000 ML INJ 1,000 ML IV SCH ×4 (05:42→23:51)
[2017-04-22] MEDS: INSULIN ASPART SUPPLEMENTAL SCALE SQ SCH ×4 (08:00→21:00)
[2017-04-22] MEDS: RESP: TOBRAMYCIN SULFATE 80 MG/2 ML NEB NEB SCH ×2 (08:16→19:58)
[2017-04-22] MEDS: LANSOPRAZOLE SOLUTAB 30 MG TAB NG SCH ×2 (08:23→21:16)
[2017-04-22] MEDS: TAMSULOSIN HCL 0.4 MG CAP PO SCH ×2 (08:24→21:16)
[2017-04-22] MEDS: QUEtiapine FUMARATE 25 MG TAB PO SCH (08:24)
[2017-04-22] MEDS: CHOLESTYRAMINE 4 GM PACKET G-TUBE SCH ×2 (08:24→21:16)
[2017-04-22] MEDS: INSULIN DETEMIR 100 UNITS/ML VIAL SQ SCH ×2 (08:24→21:17)
[2017-04-22] MEDS: CHLORHEXIDINE 0.12% (ORAL KIT) 15 ML CUP MT SCH ×2 (08:53→21:16)
[2017-04-22] MEDS: COLLAGENASE OINT 30 GM TUBE TOPICAL SCH (08:54)
[2017-04-22] MEDS: SODIUM CHLORIDE 0.9% FLUSH 10 ML FLUSH IV FLUSH SCH ×3 (08:54→21:16)
[2017-04-22] MEDS: LACTOBACILLUS ACIDOPHILUS TAB PO SCH ×3 (08:54→19:23)
[2017-04-22] MEDS: POTASSIUM CHLORIDE 25 MEQ EFFERVESCENT TAB PO SCH ×2 (09:00→21:00)
[2017-04-22] MEDS: MEROPENEM INJ 1,000 MG in SODIUM CHLORIDE 0.9% INJ 100 ML IV SCH ×2 (10:44→22:29)
[2017-04-22 11:27] LABS: AUTOMATED NEUTROPHIL # 13.3 TH/MM3 (1.8-7.7); BASOPHIL # 0.1 TH/MM3 (0-0.2); BASOPHIL % 0.4 % (0.0-2.0); EOSINOPHIL # 0.7 TH/MM3 (0-0.4); EOSINOPHIL % 4.5 % (0.0-4.0); HEMATOCRIT 26.7 % (39.0-51.0); LYMPH % 6.5 % (9.0-44.0); LYMPHOCYTE # 1.1 TH/MM3 (1.0-4.8); MEAN CELL VOLUME 86.6 FL (80.0-100.0); MEAN CORPUSCULAR HEMOGLOBIN 26.7 PG (27.0-34.0); MEAN CORPUSCULAR HGB CONC 30.8 % (32.0-36.0); MONO % 8.2 % (0.0-8.0); NEUT % 80.4 % (16.0-70.0); PLATELET COUNT 263 TH/MM3 (150-450); RED BLOOD COUNT 3.08 MIL/MM3 (4.50-5.90); RED CELL DISTRIBUTION WIDTH 17.6 % (11.6-17.2); WHITE BLOOD COUNT 16.6 TH/MM3 (4.0-11.0)
[2017-04-22 11:30] LABS: HEMO FLAGS AUTO DIFF
[2017-04-22 12:01] LABS: ALKALINE PHOSPHATASE 86 U/L (45-117); ALT (GPT) 9 U/L (12-78); ANION GAP 7 MEQ/L (5-15); AST (GOT) 22 U/L (15-37); BICARBONATE 22.4 MEQ/L (21.0-32.0); BLOOD UREA NITROGEN 37 MG/DL (7-18); CHLORIDE 114 MEQ/L (98-107); GLOMERULAR FILTRATION RATE 58 ML/MIN (>89); MAGNESIUM 1.8 MG/DL (1.5-2.5); SODIUM (NA) 143 MEQ/L (136-145); TOTAL BILIRUBIN ADULT 0.4 MG/DL (0.2-1.0)
[2017-04-22 12:04] LABS: BANDS 3 % (0-6); EOSINOPHILS 6 % (0-4); METAMYELOCYTES 2 % (0-1); NEUTROPHIL # MANUAL DIFF 13.4 TH/MM3 (1.8-7.7); POLYS (SEG NEUTROPHILS) 76 % (16-70); WBC DIFF SAMPLE 100
[2017-04-22 12:05] LABS: PLATELET ESTIMATE SMEAR NORMAL (NORMAL); PLATELET MORPHOLOGY NORMAL (NORMAL); SCAN/DIFF FINAL DIFF MANUAL; TEARDROP RBCS 1+ (NORMAL)
[2017-04-22] MEDS ORDERED: SODIUM CHLORID 0.9% 500 ML INJ 500 ML IV ONE (14:00)
[2017-04-22] MEDS: FLUCONAZOLE 100 MG TAB PO SCH (16:44)
--- NOTE | 2017-04-22 16:45 | HHI.CCPN ---
Subjective Remarks/Hospital Course Date of admission: 01/22 Date of critical care medicine consult 02/10 due to acute hypoxemic respiratory failure requiring emergent intubation 62-year-old male with a past medical history of hypertension, hyperlipidemia, diabetes mellitus, gout, uric acid kidney stones, kidney disease of unknown stage who originally presented to [facility] emergency department on 01/22 after a fall in which he sustained a right distal ulna fracture. He had been experiencing a gradual primarily lower extremity weakness as well as upper extremity weakness that was progressive. Neurology consult was obtained. MRI revealed no acute stroke. He had multifocal white matter changes. Tiny lacunar infarcts of the brainstem. Lumbar MRI report states L4-L5 disc protrusion with cetnral canal stenosis. Dr. Blackwell evaluated and states no cord compression on MRI C/T spine and recommended nonoperative management. Symptoms were felt to be consistent with transverse myelitis and he underwent Solumedrol 250 mg IV q6 hours 01/27-02/02. He also was found to have occlusive thrombus in the bilateral posterior tibial veins. Heparin was being avoided because he had traumatic lumbar puncture on 01/26 and 02/01. IVC filter was placed 01/25. He was undergoing physical therapy, reportedly making some improvements with plan to eventually discharged home with his son (max assist standing, and bed to chair per PT note). Apparently he had some vomiting the evening of 02/09 and additional vomiting on 02/10. He had a fever 102.8 on 02/09. Last recorded bowel movement was 02/03. Tonight he had acute onset of severe hypoxemia and respiratory distress. [facility] called and he was brought emergently to [facility] where his sats were 64% on 100% nonrebreather with mean arterial pressure 44. He was emergently intubated, CVL and art line placed. He is in septic shock. SUBJ: 02/11: Patient remains intubated sedated, critically ill. FiO2 reduced to 80% after increasing PEEP to 12. In severe septic shock Levophed at 16 mcg/m, vasopressin at 0.04 international units. D/W vascular surgery Dr. Enciso. He performed bedside Left upper extremity incision and debridement and excision of septic cephalic vein. 02/12: Remains intubated sedated profoundly septic, in shock on vasopressin and 7 mcg/min Levophed. FiO2 has improved to 45%, WBC count remains elevated with 20 ,000 white count significant left shift. Slight improvement in creatinine 2.9 urine output 750 ml 24 hours. 2-D echo shows LV ejection fraction 20-25%, no vegetation reported. Blood cultures 4 staph aureus. Wound culture pending 02/13: Remains critically ill but stable to improving. WBC count is down to 16, creatinine improving to 2.36. Off all pressors. Urine output also improving. 1.5L in 24 hours 02/14: Extubated 02/13. Tolerating well. WBC now down to 12.8. Creat improving 2.3 to 2. UO 3.4L. remains off all pressors. Was started on Precedex yesterday night for agitation, currently on 0.5 g per KG per hour. Chest x-ray shows left more than right air space disease 02/20/17 Re consult: 62-year-old male who was originally admitted for lower extremity weakness and found to have what was thought to be possible transverse myelitis. His hospital course his included a healthcare associated pneumonia, septic thrombophlebitis, DVT. He was most recently in the hospital floor where he had significant nausea and vomiting and diarrhea. His C. difficile test was recently negative. However, he has experienced worsening acute on chronic renal failure, hypotension, tachycardia, and severe hypoxemia. He did have a bout of vomiting earlier today, and his hospitalist attending suspects that he may have aspirated. He arrives by rapid response to the ICU with a nonrebreather in place in severe respiratory distress with SPO2 of 85%. I emergently intubate the patient, see separate procedure note for details. At this point the patient was hypotensive and tachycardic. He does have a history of an EF of 20%, however clinically he appears in florid septic shock. I placed central line and arterial line started vasopressors and gentle IV fluid resuscitation with 1 L of LR. Patient today was empirically broadened to vancomycin and Zosyn from his oxacillin which was initially treating MSSA bacteremia. He is recultured. Critical-care medicine is consulted to evaluate and manage his worsening multiorgan system failure and decompensated septic shock 02/21: Patient remains intubated sedated. Becomes anxious tachypnea on sedation lightening. Chest x-ray shows mild left lower lobe infiltrate. WBC count is slightly improved today from 23.2 t0 21. C Diff negative. UO adequate, creat slightly worsening. 1.57 today 02/22: Remains intubated sedated tolerated CPAP yesterday, plan is for EGD/ Colonscopy. WBC count back to normal. UO adequate. Creat stable 02/23: Tolerating CPAP trials following commands. Will do a spontaneous breathing trials. Status post EGD colonoscopy yesterday -Gastritis, esophagitis. Diverticulosis and multiple polyps. Urine output adequate but creatinine increasing to 1.7 with patient requiring multiple straight catheterization. We'll reinsert Sloan. 02/24: Breathing comfortably 24 hours after extubation. Protects airway well. 02/25: Excoriate bottom, will place rectal FMS. Start pureed diet. 02/26: Afebrile. Complaining of nausea and vomiting this afternoon. Increased stool output. Continue potassium replacement today. 02/27: 10 PM overnight, acutely hypotensive. Received 3 units PRBCs. Antibiotic coverage broadened to piperacillin/tazobactam, cortisol and 1 dose of vancomycin. Oxacillin drip currently on hold. Symptomatically, patient continues to vague abdominal pain/nausea vomiting which is unchanged for the past several days. Lipase elevated yesterday. Lactic acid normal. Troponin normal. Urinary retention after removal of Sloan. Straight catheter 1300. Cc 02/28: New diagnosis large retroperitoneal hematoma. Received 10 PRBC, 14 FFP, 2 platelets, 1 cryo-, 6 g calcium chloride, 2 is magnesium sulfate and 4 mg Bumex. CTA abdomen revealed possible arterial bleeds iliac, lumbar. Patient is currently on norepinephrine and epinephrine drips and possible need right nephrostomy tube placement due to large hematoma compressing ureter. Intra-abdominal bladder pressures are currently 13 03/01: Afebrile. Received 25 g albumin and 1 unit PRBCs overnight. Intra- abdominal bladder pressures currently 19. Currently on 3 micrograms per minute of norepinephrine. [id number] 1 out of 4 on 4 mics grams per kilogram per minute of cisatracurium. 03/02: Slightly hypothermic overnight. Hemoglobin appears to have stabilized. Troponin bump overnight likely secondary to demand ischemia from hypotension. Hemodynamically stable off all vasopressors. 03/03: Received 1 PRBCs overnight. 3 units currently. Off all vasopressors. Likely rebleeding. Stool is dark. 03/04: Remains unstable. Ventilator dependent. 03/05: afebrile. hgb stable. 03/06: bumex drip started overnight. good uop after bumex initiated. still grossly volume overloaded. Cr downtrending. more awake with transition to propofol. still too volume overloaded to tolerate extubation. hgb stable. 03/07: Afebrile. Tolerating tube feeds at goal with Nepro. Positive BM. On low-dose fentanyl and propofol drips. Potassium currently being replaced. 03/08: Eyes will open on ventilator. Afebrile. Tolerating tube feeding. Failed PSV trial yesterday due to apnea. 03/09: Following commands. Tmax 101. Tolerating tube feeding. One hour PSV trial yesterday. Currently tolerating well so far today 1.5 hours 03/10: Low-grade temperatures. Tolerating PSV trial 10 hours yesterday. Currently at 5/5 at 35%. We'll probably attempt extubation a.m. after hemodialysis. 03/11: Extubated currently in 4 L nasal cannula. Thick secretions thick clear with cough. Currently afebrile. Tolerating diet previously. 03/12: Sleepy this morning but arouses. Following commands. Refusing diet at the present time. On 2 L nasal cannula. 03/13: Patient reintubated last night for worsening respiratory status. Currently sedated on mechanical ventilation. Became hypotensive following intubation and is on Levophed 20 mics per minute. 03/14: Sedated, orally intubated on mech vent at the time of my evaluation this AM, subsequently underwent perc trach placement. Remains on levophed for pressor support. Transfused 1 unit PRBCs today. Persisten 03/15: Trach site clean, dry. CXR with bilateral basilar infiltrates. 03/16: Pulmonary congestion persists. Clinical condition not improving. Prognosis becoming increasingly bleak. 03/17: Glucose intolerance worse. No improvement in neurological function. 03/18: Remains on mechanical ventilation via tracheostomy. Off pressors now. Neurologic status remains poor. 03/19: Drowsy, encephalopathic, arousable. On mechanical ventilation via tracheostomy. Levemir increased for hyperglycemia today. Remains off pressors 03/20: More awake, moves both upper extremities. On mechanical ventilation via tracheostomy. Daily C Pap trials ongoing. 03/21: Awake and alert. On mechanical ventilation via tracheostomy. Opens and closes eyes on command. 03/22: Awake and alert. Tolerated T PIECE for 7 hours yesterday. Dialyzed today. 03/23: Currently on T piece trial. Status post dialysis yesterday on 3 L. Awake and alert. Wants to eat. Subjective 03/24: Currently afebrile. Hemodialysis catheter discontinued yesterday from left IJ. Persistent leukocytosis noted. Potassium will be replaced. Furosemide 40 mg twice a day IV to 20 mg IV twice a day 03/25: WBC count unchanged. Patient on T piece with humidified air greater than 48 hours, tolerating it well. Reconsulted 04/12: The patient was transferred emergently from the floor/ [facility]. Patient was initially seen by acting section chief Dr. Estrada, and the patient was noted to be tachypneic on T piece of 40%. ABGs were performed which showed a PaO2 of 60 on T piece of FiO2 of 40%. Chest x-ray was performed which showed loss of entire left hemidiaphragm fundraising assistant consolidation in the left lower lobe. Concern for mucus plugging versus fluid. The patient was transferred emergently to [facility] placed on a ventilator CT of the chest is pending. Upon arrival in the room the patient is alert and oriented, mouthing words, nodding head to yes and no questions O2 sat is 100% but patient is currently on mechanical ventilation. Currently in no respiratory distress. 04/13: Tmax 99.8. The patient's oxygen requirements have decreased currently FiO2 35% with a PaO2 1 blood gas of 85, O2 saturation 100%. No respiratory distress noted. Patient underwent CT of the chest yesterday noted pleural effusions left greater than right, diagnostic/and therapeutic CT thoracentesis plan for this a.m.. 04/14: Patient underwent CT-guided thoracentesis of the right side with approximately 600 cc withdrawn. Today acting section chief Dr. LABOY in and up size indwelling 6.0 Shiley to a 8.0 Shiley. Minimal bleeding noted around the site. X-ray improving. Patient started on CPAP trials today, as well as tube feeds were initiated. 04/15: Placed on T piece this morning via tracheostomy. Appears to be tolerating it. Laying in bed not in any acute distress. 04/16: Awake and alert. Tolerating T piece. Tolerating PEG feeds. 04/17: Awake and alert. Tolerating T piece. Tolerating tube feeds via PEG 04/18: Awake and alert. Tolerating TPs. Tolerating tube feeds. Passed swallow eval 04/19: Awake and alert. Remains on T piece. Wants to move out of ICU as he indicates to me once again as he has for the past few days. Awaiting CIC bed 04/20: Awake and alert. Remains on T piece. Developed hypotension last night for which she was transiently on Levophed however has been off since early this morning. ID adjusting antibiotics and working up for new sepsis. 04/21: Awake and alert. On T piece. Awaiting [facility]IC bed for the last few days. 04/22: Awake and alert. Remains on T piece. Received 500 cc normal saline this morning for tachycardia. Objective Vital Signs Date Time Temp Pulse Resp B/P (MAP) Pulse Ox O2 Delivery O2 Flow Rate FiO2 04/22/17 08:50 17 04/22/17 08:18 96 T-piece 35 04/22/17 04:00 128 04/22/17 04:00 98.7 122/73 (89) 04/21/17 20:26 5.00 Intake and Output 04/22/17 04/22/17 04/23/17 08:00 16:00 00:00 Intake Total 1161 ml Output Total 1250 ml Balance -89 ml Result Diagram: 04/22/17 1042 04/22/17 1042 Imaging Last Impressions Chest CT 04/12/17 1558 Signed Impressions: Service Date/Time: March 17:51 - CONCLUSION: 1. Slight increase in size of bilateral effusions and basilar atelectasis, left greater than right compared with February 27. Tracheostomy in good position. Trace Holloway MD Chest X-Ray 04/12/17 1248 Signed Impressions: Service Date/Time: March 10:59 - CONCLUSION: New hazy opacity involving most of the left hemithorax suggesting either large pleural effusion or developing infiltrates. Stable left lower lung consolidation. Candido Patton MD Renal Ultrasound 04/02/17 0000 Signed Impressions: Service Date/Time: Sunday, April 02, 2017 16:59 - CONCLUSION: Limited exam with the left kidney being unable to be evaluated in the bladder not distended. There do appear to be multiple shadowing stones at the right kidney without hydronephrosis. Angelo Manzo MD Wrist X-Ray 03/27/17 Signed Impressions: Service Date/Time: Monday, March 27, 2017 13:21 - CONCLUSION: 1. No acute fracture is identified. A portion of the previously documented distal ulna fracture remains visualized. 2. 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 Angelo Allen MD Aortography 02/28/17 Signed Impressions: Service Date/Time: Tuesday, February 28, 2017 08:01 - CONCLUSION: 1. Active hemorrhage from distal right lateral sacral and iliolumbar branches successfully coil and Gelfoam embolized, as above. Juan Bhakta MD Abdomen/Pelvis CT 02/28/17 Signed Impressions: Service Date/Time: Tuesday, February 28, 2017 06:51 - CONCLUSION: 1. The right retroperitoneal hematoma has increased in size, as above. There are 2 serpiginous arterially enhancing structures visualized, one in the right psoas muscle and another extending into the hematoma at the right iliac fossa. These could represent sites of continued active bleeding. 2. Stable moderate size left and small right pleural effusion with associated compressive atelectasis. 3. Stable small volume of free fluid in the abdomen and pelvis. There is also anasarca. The findings concerning the retroperitoneal hematoma were discussed with Dr. Aguiar via telephone at approximately 7: 10 AM on 02/28/2017. Angelo Allen MD Abdomen X-Ray 02/26/17 Signed Impressions: Service Date/Time: Sunday, February 26, 2017 14:52 - CONCLUSION: 1. Nonobstructive bowel gas pattern. Juan Bhakta MD Upper Extremity Ultrasound 02/10/17 Signed Impressions: Service Date/Time: Friday, February 10, 2017 18:46 - CONCLUSION: Occlusive thrombus in the cephalic and basilic veins. Benjamin Person MD Lung Scan- Nuclear Medicine 02/10/17 Signed Impressions: Service Date/Time: Friday, February 10, 2017 22:17 - CONCLUSION: Low probability pulmonary embolism. Candido Patton MD Head CT 02/10/17 Signed Impressions: Service Date/Time: Friday, February 10, 2017 23:51 - CONCLUSION: Negative noncontrast CT brain. Candido Patton MD Lumbar Puncture Fluoroscopy 02/01/17 Signed Impressions: Service Date/Time: January 09:35 - CONCLUSION: Uncomplicated fluoroscopically guided lumbar puncture. CSF was clear. Nabeel Peralta MD Head Magnetic Resonance Angiography 01/27/17 Signed Impressions: Service Date/Time: Friday, January 27, 2017 10:33 - CONCLUSION: No intracranial vascular abnormality is identified. There is no aneurysm visualized. Angelo Allen MD IVC Filter Placement X-Ray 01/25/17 Signed Impressions: Service Date/Time: January 10:29 - CONCLUSION: Uncomplicated inferior vena cava filter placement as above. Yung Fowler MD Thoracic Spine MRI 01/24/17 Signed Impressions: Service Date/Time: Tuesday, January 24, 2017 22:29 - CONCLUSION: 1. Mild degenerative spondylosis most prominently at T11-L1 with slight effacement of the anterior thecal sac and left lateral recess. No significant neural foraminal stenosis. 2. No acute fracture. Juan Bhakta MD Lumbar Spine MRI 01/23/17 Signed Impressions: Service Date/Time: Monday, January 23, 2017 17:01 - CONCLUSION: 1. At L4-5 is a broad-based disc protrusion with severe central canal and lateral recess stenosis and flattening of the exiting right L4 nerve root. 2. L5-S1 there is a disc protrusion and moderate stenosis with flattening of the exiting L5 nerve roots bilaterally. 3. At L3-4 there is a moderate to severe central stenosis and lateral recess stenosis with mild foraminal stenosis. 4. No acute fracture or spondylolisthesis. Trace Holloway MD Lower Extremity Ultrasound 01/23/17 Signed Impressions: Service Date/Time: Monday, January 23, 2017 09:53 - CONCLUSION: Bilateral focal lower extremity DVT involving the posterior tibial veins. Angelo Garrido MD Cervical Spine MRI 01/23/17 Signed Impressions: Service Date/Time: Monday, January 23, 2017 17:01 - CONCLUSION: 1. Multilevel cervical spine degenerative changes as above. 2. Mild degrees of spinal stenosis at C3/C4-C6/C7. No cord compression or cord signal abnormality. 3. Age indeterminate left paracentral/foraminal disc protrusion at C6/C7. 4. Multilevel foraminal stenosis, most severe on the left at C6/C7. Please see individual levels above. 5. No fracture or subluxation of the cervical spine. Angelo Garrido MD Brain MRI 01/23/17 0000 Signed Impressions: Service Date/Time: Monday, January 23, 2017 17:01 - CONCLUSION: 1. No acute stroke or other acute intracranial abnormality demonstrated. 2. Moderate severity chronic white matter changes, nonspecific but most likely related to chronic small vessel disease. 3. Few scattered tiny lacunar infarcts of the brainstem. 4. Given the findings are not entirely specific, clinical evaluation for possible multiple sclerosis recommended. Angelo Garrido MD Knee X-Ray 01/22/[id number] Signed Impressions: Service Date/Time: Sunday, January 22, 2017 21:17 - CONCLUSION: 1. Evidence of moderate to large joint effusion. 2. No acute fracture or malalignment. 3. Mild 3 compartment osteoarthritic change. Benjamin Person MD Hip and Pelvis X-Ray [id number]/22/[id number] Signed Impressions: Service Date/Time: Sunday, January 22, 2017 21:10 - CONCLUSION: 1. Mild to moderate degenerative change of both hips with no acute fracture or malalignment. There is flattening and remodeling of the right humeral head. Benjamin Person MD Last Impressions Chest X-Ray 03/14/17 0000 Signed Impressions: Service Date/Time: Tuesday, March 14, 2017 13:41 - CONCLUSION: 1. Tracheostomy in good position. 2. Left lower lung infiltrates and left pleural effusion. Candido Patton MD Aortography 02/28/17 0000 Signed Impressions: Service Date/Time: Tuesday, February 28, 2017 08:01 - CONCLUSION: 1. Active hemorrhage from distal right lateral sacral and iliolumbar branches successfully coil and Gelfoam embolized, as above. Juan Bhakta MD Abdomen/Pelvis CT 02/28/17 0000 Signed Impressions: Service Date/Time: Tuesday, February 28, 2017 06:51 - CONCLUSION: 1. The right retroperitoneal hematoma has increased in size, as above. There are 2 serpiginous arterially enhancing structures visualized, one in the right psoas muscle and another extending into the hematoma at the right iliac fossa. These could represent sites of continued active bleeding. 2. Stable moderate size left and small right pleural effusion with associated compressive atelectasis. 3. Stable small volume of free fluid in the abdomen and pelvis. There is also anasarca. The findings concerning the retroperitoneal hematoma were discussed with Dr. Aguiar via telephone at approximately 7: 10 AM on 02/28/2017. Angelo Allen MD Chest CT 02/27/17 0000 Signed Impressions: Service Date/Time: Monday, February 27, 2017 18:12 - CONCLUSION: 1. Bilateral pleural effusions with bibasilar atelectasis, left greater than right. Tom Sanchez MD Abdomen X-Ray 02/26/17 0000 Signed Impressions: Service Date/Time: Sunday, February 26, 2017 14:52 - CONCLUSION: 1. Nonobstructive bowel gas pattern. Juan Bhakta MD Upper Extremity Ultrasound 02/10/17 0000 Signed Impressions: Service Date/Time: Friday, February 10, 2017 18:46 - CONCLUSION: Occlusive thrombus in the cephalic and basilic veins. Benjamin Person MD Lung Scan- Nuclear Medicine 02/10/17 0000 Signed Impressions: Service Date/Time: Friday, February 10, 2017 22:17 - CONCLUSION: Low probability pulmonary embolism. Candido Patton MD Head CT 02/10/17 0000 Signed Impressions: Service Date/Time: Friday, February 10, 2017 23:51 - CONCLUSION: Negative noncontrast CT brain. Candido Patton MD Wrist X-Ray 02/06/17 0000 Signed Impressions: Service Date/Time: Monday, February 06, 2017 12:50 - CONCLUSION: Minimally displaced distal radius and ulnar fractures. Armando Dodd MD Lumbar Puncture Fluoroscopy 02/01/17 0000 Signed Impressions: Service Date/Time: January 09:35 - CONCLUSION: Uncomplicated fluoroscopically guided lumbar puncture. CSF was clear. Nabeel Peralta MD Head Magnetic Resonance Angiography 01/27/17 0000 Signed Impressions: Service Date/Time: Friday, January 27, 2017 10:33 - CONCLUSION: No intracranial vascular abnormality is identified. There is no aneurysm visualized. Angelo Allen MD IVC Filter Placement X-Ray 01/25/17 Signed Impressions: Service Date/Time: January 10:29 - CONCLUSION: Uncomplicated inferior vena cava filter placement as above. Yung Fowler MD Thoracic Spine MRI 01/24/17 Signed Impressions: Service Date/Time: Tuesday, January 24, 2017 22:29 - CONCLUSION: 1. Mild degenerative spondylosis most prominently at T11-L1 with slight effacement of the anterior thecal sac and left lateral recess. No significant neural foraminal stenosis. 2. No acute fracture. Juan Bhakta MD Renal Ultrasound 01/23/17 Signed Impressions: Service Date/Time: Monday, January 23, 2017 08:53 - CONCLUSION: 1. Evidence of chronic parenchymal disease of both kidneys. No obstructive uropathy or other acute abnormality demonstrated. 2. Trace ascites, nonspecific. Angelo Garrido MD Lumbar Spine MRI 01/23/17 Signed Impressions: Service Date/Time: Monday, January 23, 2017 17:01 - CONCLUSION: 1. At L4-5 is a broad-based disc protrusion with severe central canal and lateral recess stenosis and flattening of the exiting right L4 nerve root. 2. L5-S1 there is a disc protrusion and moderate stenosis with flattening of the exiting L5 nerve roots bilaterally. 3. At L3-4 there is a moderate to severe central stenosis and lateral recess stenosis with mild foraminal stenosis. 4. No acute fracture or spondylolisthesis. Trace Holloway MD Lower Extremity Ultrasound 01/23/17 Signed Impressions: Service Date/Time: Monday, January 23, 2017 09:53 - CONCLUSION: Bilateral focal lower extremity DVT involving the posterior tibial veins. Angelo Garrido MD Cervical Spine MRI 01/23/17 Signed Impressions: Service Date/Time: Monday, January 23, 2017 17:01 - CONCLUSION: 1. Multilevel cervical spine degenerative changes as above. 2. Mild degrees of spinal stenosis at C3/C4-C6/C7. No cord compression or cord signal abnormality. 3. Age indeterminate left paracentral/foraminal disc protrusion at C6/C7. 4. Multilevel foraminal stenosis, most severe on the left at C6/C7. Please see individual levels above. 5. No fracture or subluxation of the cervical spine. Angelo Garrido MD Brain MRI 01/23/17 0000 Signed Impressions: Service Date/Time: Monday, January 23, 2017 17:01 - CONCLUSION: 1. No acute stroke or other acute intracranial abnormality demonstrated. 2. Moderate severity chronic white matter changes, nonspecific but most likely related to chronic small vessel disease. 3. Few scattered tiny lacunar infarcts of the brainstem. 4. Given the findings are not entirely specific, clinical evaluation for possible multiple sclerosis recommended. Angelo Garrido MD Knee X-Ray 01/22/[id number] Signed Impressions: Service Date/Time: Sunday, January 22, 2017 21:17 - CONCLUSION: 1. Evidence of moderate to large joint effusion. 2. No acute fracture or malalignment. 3. Mild 3 compartment osteoarthritic change. Benjamin Person MD Hip and Pelvis X-Ray 01/22/172053 Signed Impressions: Service Date/Time: Sunday, January 22, 2017 21:10 - CONCLUSION: 1. Mild to moderate degenerative change of both hips with no acute fracture or malalignment. There is flattening and remodeling of the right humeral head. Benjamin Person MD Objective Remarks GENERAL: 62-year-old male, resting in bed, on T piece, in no apparent distress nodding head to yes and no questions HEENT: Normocephalic. Atraumatic. Pupils equal, round, reactive. NECK: Tracheostomy in place, around trach site erythematous, yellowish drainage CHEST: On T piece, air entry decreased bilaterally . Scattered rhonchi, no wheezing CARDIOVASCULAR: S1-S2 regular, no gallop or murmur ABDOMEN distended. No rigidity. Umbilical hernia is reducible. No guarding. PEG tube in place : Positive scrotal edema Sloan in situ MUSCULOSKELETAL: Pulses 2+. 1+ bilateral upper and lower extremity edema. NEUROLOGICAL: Awake and alert, has spontaneous eye opening. Opens and closes eyes on command. Moves 4 limbs weakly to stimulation. Procedures 01/25/2017- Retrievable IVC Filter placement 01/26/17-lumbar puncture with fluoroscopy-by interventional radiology 02/01/17- lumbar puncture fluoroscopy by interventional radiology 02/10/17- Endotracheal Intubation 02/10/17-left IJ central venous line placed 02/10/17-left femoral arterial line placed 02/11/17-Diagnostic and therapeutic bronchoscopy with bronchoalveolar lavage 02/11/17-Left upper extremity incision and debridement with excision of septic cephalic vein 02/13/17- Extubated 02/20/17- endotracheal intubation 02/20/17- Left subclavian central line placement 02/20/17-Right radial A-line placement 02/22/17-EGD/colonoscopy 02/28/17-right radial a line 02/28/17- Endotracheal intubation 02/28/17- right sided introducer catheter placement 02/28/17- Right IJ central line placement 02/28/17-Right chest tube placement 02/28/17- Embolization of inferior and superior sacral branches of right internal iliac artery 03/01/17- Hemodialysis access catheter 03/03/17-Right IJ central line placement 03/11/17-Extubated 03/13/17- Endotracheal intubation 03/14/17-Tracheostomy placement, trach downsized to 6.0 Anni 03/30/17 03/15/17-PEG tube placement 04/11/17-CT Chest 04/13/17-thoracentesis right 600 cc removed Date of Insertion: Feb 20, 2017 Date of Insertion: Mar 03, 2017 Line: Central Venous Catheter Side: Right Location: Internal, Jugular A/P Problem List: (1) Septic shock ICD Code: A41.9 - Sepsis, unspecified organism; R65.21 - Severe sepsis with septic shock Status: Acute (2) Acute respiratory failure ICD Code: J96.00 - Acute respiratory failure, unspecified whether with hypoxia or hypercapnia Status: Acute (3) Thrombophlebitis arm ICD Code: I80.8 - Phlebitis and thrombophlebitis of other sites (4) Aspiration pneumonia ICD Code: J69.0 - Pneumonitis due to inhalation of food and vomit Status: Acute (5) Atelectasis of left lung ICD Code: J98.11 - Atelectasis Status: Acute (6) Quadriparesis ICD Code: G82.50 - Quadriplegia, unspecified Status: Acute (7) DVT (deep venous thrombosis) ICD Code: I82.409 - Acute embolism and thrombosis of unspecified deep veins of unspecified lower extremity (8) Altered mental status ICD Code: R41.82 - Altered mental status, unspecified Status: Acute (9) CKD (chronic kidney disease) stage 3, GFR 30-59 ml/min ICD Code: N18.3 - Chronic kidney disease, stage 3 (moderate) Status: Chronic (10) Acute renal failure ICD Code: N17.9 - Acute kidney failure, unspecified Status: Acute (11) Diabetes mellitus ICD Code: E11.9 - Type 2 diabetes mellitus without complications Status: Chronic (12) Distal end of ulna fracture, closed ICD Code: S52.609A - Unspecified fracture of lower end of unspecified ulna, initial encounter for closed fracture Status: Acute (13) Gout ICD Code: M10.9 - Gout, unspecified Status: Chronic Assessment and Plan Assessment: NEURO/PSYCH: Acute metabolic encephalopathy- persistent Quadriparesis secondary to suspected transverse myelitis Recurrent falls Suspected transverse myelitis. Received methylprednisolone 250 mg IV every 6 hours 01/27-02/02, started back on hydrocortisone 02/21/17, initially tapering to 50 mg IV every 8 hours starting received 1 dose at 2100 prior to becoming hypotensive. weaning hydrocortisone taper and stopped 03/09. Resumed hydrocortisone 50mg IV Q6hrly on 03/14 as patient became hypotensive following intubation on 03/13 requiring levophed. Continue Hydrocortisone 50 mg IV every 6 hours LP 01/26 and 02/01. CSF culture negative 01/26, 02/01 Oligoclonal bands negative. CSF/serum IgG index is not elevated. VDRL nonreactive. Cryptococcal antigen negative. Brain MRI 01/23 no acute stroke. Few scattered lacunar infarcts of the brainstem. Moderate chronic white matter changes. MRI cervical/thoracic spine- mild spinal stenosis C3/C4 to C6/C7. No cord compression. RPR negative Neurology has been following, Dr. Crenshaw. Repeat CT brain 02/10 - negative Continue PT/OT Continue oxycodone 10 mg every 4 hours scheduled RESP: Acute hypoxemic respiratory failure Healthcare associated pneumonia/Aspiration Pneumonia S/P Right-sided chest tube 02/28 Off mechanical ventilation, vent bundle, tolerating T piece. -On T piece >48 hours. Humidified room air Albuterol/ipratropium aerosols every 6 hours with albuterol aerosols every 2 hours prn VQ scan 02/10 low probability for PE. CT chest 02/10 - left lower lobe collapse and consolidation. CT chest 02/27 revealed right greater than left pleural effusions. Extubated 02/23. Intubated 02/28. Extubated 03/11, Reintubated on 03/13. Right-sided chest tube placement 02/28 neighborhood worker, removed 03/05. Failed attempt to wean successfully due to volume overload and multiple organ failure. underwent perc tracheostomy 03/14. CT chest 04/12-slight increase and bilateral effusions left greater than right basilar atelectasis CXR 04/13-moderate pleural effusion left with consolidation of the left lung Pulmonology following Dr. Estrada -Patient has a 6.0 Shiley may also need bronchoscopy to require a larger size trach or intubation. 04/13 CT guided thoracentesis scheduled emergently as discussed with Dr. Estrada - 600cc removed (right) 04/14-tracheostomy up sized to 8.0 Shiley by acting section chief Dr. Estrada at bedside CV: Severe sepsis - resolved. Systolic heart failure likely chronic with ejection fraction 20-25% Hyperlipidemia History of hypertension Mild TR Sinus tachycardia Elevated troponin likely type II demand ischemia Restarted on Levophed on 03/09 for following intubation, titrated off after starting hydrocortisone. Started hydrocortisone stress dose on 03/14 (as patient has been on steroids and was just tapered off on 03/09.) Patient has on hypotensive twice when attempting to wean off stress dose hydrocortisone in the past. On Levophed transiently on 04/19 night. Currently on atenolol 25 mg twice a day. Continue amlodipine 5 mg daily As needed Nitropaste, labetalol and hydralazine for hypertension Atorvastatin 10 mg by mouth daily for dyslipidemia. Troponin 0.[address]-T changes. 2-D echocardiogram 01/11 revealed EF 20-25%. Mild TR. Pulmonary arterial pressures were normal around 20 Troponin 6.55 on 03/02. Currently on furosemide 20 mg IV twice a day per nephrology GI: Large right retroperitoneal hematoma Erosive esophagitis Adematous/hyperplastic colon polyps Severe acute protein calorie malnutrition Nausea/vomiting - resolved. Diarrhea Gastritis Diverticulosis Internal and external hemorrhoids Hiatal hernia Elevated lipase 02/27 CT chest/abdomen and pelvis - 9.4 x 7.5 renal and 16 x 12 cm right psoas muscle hematoma. Fluid around liver and spleen. Right-sided nephrolithiasis CTA abdomen 02/28 - possible blushing around iliac/lumbar vessels Discussed with IR. s/p attempted embolization CT abdomen and pelvis 02/10 atrophic left kidney. Bilateral inguinal hernias fat- containing. Nonobstructing 12 mm right kidney stone repeat CT abd/pelvis did not show evidence of obstruction. patient clinically has been having diarrhea (c. diff negative 02/19). also with nausea/vomiting of unclear etiology. EGD/Colonoscopy-02/22/17 showed gastritis esophagitis, hiatal hernia, diverticulosis and multiple polyps in descending colon and sigmoid which were snared biopsied. Biopsy pending Status post PEG tube placement Passed swallow eval. Initiate by mouth diet as well as tube feeds at night via PEG to supplement. 04/20 Lansoprazole 30 mg twice a day for GI prophylaxis FEN/RENAL: Acute kidney injury in the setting of Chronic kidney disease stage 3-4 History of uric acid kidney stones with prior stent BPH Nonfunctioning left kidney Acute intravascular volume overload Hypokalemia Sloan placed due to urinary retention and worsening creatinine Maintain Sloan secondary to urinary retention Monitor intake and output q1hr. Monitor electrolytes. RIOS/SPEP negative. 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 Recommended nephrostomy tube if obstruction Nephrology consulted, off hemodialysis. Making urine. Due to acute illness holding tamsulosin 0.4 mg by mouth daily for BPH ICU electrolyte replacement protocol Last IHD was 03/22 ID: Septic shock- resolved. Abscess and Suppurative thrombophlebitis left upper extremity MSSA bacteremia Klebsiella UTI ESBL positive Acute aspiration pneumonia/HCAP Previously treated with Bactrim, ertapenem, intermittent vancomycin, nafcillin Blood cultures 2, UA ESBL positive Klebsiella UTI Sputum 03/14 - Pseudomonas came back resistant to imipenem, Stenotrophomonas maltophilia Repeat blood cultures 2 and sputum 03/08 pending. Urine negative. Antibiotics per ID. on Tobra nebs, IV Flagyl and Diflucan started 04/20 per ID- Dr. Edwards. HEME: Acute blood loss anemia DVT, bilateral posterior tibial vein, IVC filter Septic thrombophlebitis with occlusive thrombus mid cephalic and basilic vein side Received 10 PRBC, 14 FFP, 2 platelets, 1 cryo-02/28 Received 3 units PRBCs Serial hemoglobins every 6 hours Recheck coags Ultrasound 01/23/17 - Bilateral lower extremity with occlusive posterior tibial vein DVTs. Heparin was initially started for DVT but was placed on hold due to LP with suspected traumatic tap. Currently holding full anticoagulation with enoxaparin 100 mg IV twice a day due to anemia as of 02/26 IVC filter was placed 01/25/17. Ultrasound LUE 02/10 occlusive thrombus mid cephalic vein, basilic vein.s. Transfuse 3 units PRBCs 02/27 Transfuse 2 units PRBCs 03/01. Transfused 1 unit PRBCs on 03/14 ENDO: Diabetes mellitus Hypoglycemia History of prior adrenal insufficiency with shock Gout EGD colonoscopy completed 02/22. gastritis and esophagitis, colon polyps Started Hydrocortisone 100 mg every 8 hours 02/21/17 (Recent high dose steroids use now hypotensive, hypoglycemic), steroids had been tapered off. Resumed stress dose steroids on 03/16 as patient back on Levophed for pressor support after intubation. Taper down to 10 mg by mouth every 12 hourly hydrocortisone now. Accu-Cheks to maintain euglycemia Novulin R every 4 hours. Low Regimen Currently on insulin detemir 25 units twice a day for hyperglycemia MSK: Right distal ulna fracture. Recommended nonoperative management. PROPH: Lansoprazole 30 mg twice a day twice a day for stress ulcer prophylaxis. Has IVC filter. Therapeutic enoxaparin was placed on hold for retroperitoneal hematoma ACCESS: right IJ CVL placed 03/03-03/20. A left IJ hemodialysis catheter placed 03/01 - 03/23. Left femoral A line placed 03/14 - discontinued 03/19 Dispo: Discussed with [employer] at bedside Patient waiting for transfer out of ICU since 04/17. Consult placed to hospitalist service on 04/17. Hospitalist service to take over patient care when patient transferred out of ICU. Problem Qualifiers (1) Aspiration pneumonia: (2) DVT (deep venous thrombosis): Qualified Codes: I82.443 - Acute embolism and thrombosis of tibial vein, bilateral (3) Acute renal failure: Qualified Codes: N17.9 - Acute kidney failure, unspecified (4) Diabetes mellitus: (5) Gout: Devin Puente MD Apr 22, 2017 16:45
--- NOTE | 2017-04-22 18:57 | HHI.IDPN ---
Subjective Subjective Remarks ID X cover for Dr Edwards pt seen earlier today this is delayed entry Antibiotics fluconazole flagyl Meropenem tobra INH Lines PIV - Line sites with no e.o infection Past Medical History Reviewed Allergies: Coded Allergies: levofloxacin (Verified Allergy, Severe, 01/22/17) Objective . Vital Signs Date Time Temp Pulse Resp B/P (MAP) Pulse Ox O2 Delivery O2 Flow Rate FiO2 04/22/17 16:00 99.5 131 21 101/51 (68) 98 04/22/17 16:00 131 04/22/17 15:23 27 04/22/17 12:00 98.8 130 21 112/51 (71) 95 04/22/17 12:00 130 04/22/17 08:18 96 T-piece 35 04/22/17 08:00 141 04/22/17 08:00 99.1 141 37 130/59 (82) 61 04/22/17 07:00 94 T-Piece 35 04/22/17 04:00 128 04/22/17 04:00 98.7 128 24 122/73 (89) 100 04/22/17 00:00 109 04/22/17 00:00 98.9 114 23 142/69 (93) 99 04/21/17 20:26 94 T-piece 5.00 35 04/21/17 20:00 98.8 109 28 113/71 (85) 94 04/21/17 20:00 109 04/21/17 19:00 94 T-Piece 35 04/22/17 04/22/17 04/23/17 15:00 23:00 07:00 Bladder Scan Volume Amount 25 ml . Laboratory Tests Test 04/22/17 10:42 White Blood Count 16.6 TH/MM3 Red Blood Count 3.08 MIL/MM3 Hemoglobin 8.2 GM/DL Hematocrit 26.7 % Mean Corpuscular Volume 86.6 FL Mean Corpuscular Hemoglobin 26.7 PG Mean Corpuscular Hemoglobin Concent 30.8 % Red Cell Distribution Width 17.6 % Platelet Count 263 TH/MM3 Mean Platelet Volume 7.9 FL Neutrophils (%) (Auto) 80.4 % Lymphocytes (%) (Auto) 6.5 % Monocytes (%) (Auto) 8.2 % Eosinophils (%) (Auto) 4.5 % Basophils (%) (Auto) 0.4 % Neutrophils # (Auto) 13.3 TH/MM3 Lymphocytes # (Auto) 1.1 TH/MM3 Monocytes # (Auto) 1.4 TH/MM3 Eosinophils # (Auto) 0.7 TH/MM3 Basophils # (Auto) 0.1 TH/MM3 CBC Comment AUTO DIFF Differential Total Cells Counted 100 Neutrophils % (Manual) 76 % Band Neutrophils % 3 % Lymphocytes % 6 % Monocytes % 7 % Eosinophils % 6 % Neutrophils # (Manual) 13.4 TH/MM3 Metamyelocytes 2 % Differential Comment FINAL DIFF MANUAL Platelet Estimate NORMAL Platelet Morphology Comment NORMAL Tear Drop Cells 1+ Laboratory Tests Test 04/22/17 10:42 Blood Urea Nitrogen 37 MG/DL Creatinine 1.26 MG/DL Random Glucose 132 MG/DL Total Protein 5.4 GM/DL Albumin 2.5 GM/DL Calcium Level 8.7 MG/DL Phosphorus Level 2.2 MG/DL Magnesium Level 1.8 MG/DL Alkaline Phosphatase 86 U/L Aspartate Amino Transf (AST/SGOT) 22 U/L Alanine Aminotransferase (ALT/SGPT) 9 U/L Total Bilirubin 0.4 MG/DL Sodium Level 143 MEQ/L Potassium Level 5.0 MEQ/L Chloride Level 114 MEQ/L Carbon Dioxide Level 22.4 MEQ/L Anion Gap 7 MEQ/L Estimat Glomerular Filtration Rate 58 ML/MIN Microbiology Date/Time Source Procedure Growth Status 04/20/17 15:19 Blood Peripheral Aerobic Blood Culture - Preliminary NO GROWTH IN 2 DAYS Resulted 04/20/17 15:19 Blood Peripheral Anaerobic Blood Culture - Preliminary NO GROWTH IN 2 DAYS Resulted 04/20/17 15:10 Blood Peripheral Aerobic Blood Culture - Preliminary NO GROWTH IN 2 DAYS Resulted 04/20/17 15:10 Blood Peripheral Anaerobic Blood Culture - Preliminary NO GROWTH IN 2 DAYS Resulted 04/20/17 22:30 Urine Catheterized Urine Urine Culture - Preliminary Yeast Species Resulted Imaging Last Impressions Chest X-Ray 04/17/17 0000 Signed Impressions: Service Date/Time: Monday, April 17, 2017 03:40 - CONCLUSION: Mild left effusion and possible accompanying atelectasis or consolidation at the left base Angelo Manzo MD Thoracentesis 04/13/17 1054 Signed Impressions: Service Date/Time: Thursday, April 13, 2017 15:26 - CONCLUSION: Uncomplicated CT-guided right thoracentesis. Candido Mendoza Jr., MD Chest CT 04/12/17 1558 Signed Impressions: Service Date/Time: March 17:51 - CONCLUSION: 1. Slight increase in size of bilateral effusions and basilar atelectasis, left greater than right compared with February 27. Tracheostomy in good position. Trace Holloway MD Renal Ultrasound 04/02/17 0000 Signed Impressions: Service Date/Time: Sunday, April 02, 2017 16:59 - CONCLUSION: Limited exam with the left kidney being unable to be evaluated in the bladder not distended. There do appear to be multiple shadowing stones at the right kidney without hydronephrosis. Angelo Manzo MD Wrist X-Ray 03/27/17 0000 Signed Impressions: Service Date/Time: Monday, March 27, 2017 13:21 - CONCLUSION: 1. No acute fracture is identified. A portion of the previously documented distal ulna fracture remains visualized. 2. 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 Angelo Allen MD Aortography 02/28/17 0000 Signed Impressions: Service Date/Time: Tuesday, February 28, 2017 08:01 - CONCLUSION: 1. Active hemorrhage from distal right lateral sacral and iliolumbar branches successfully coil and Gelfoam embolized, as above. Juan Bhakta MD Abdomen/Pelvis CT 02/28/17 0000 Signed Impressions: Service Date/Time: Tuesday, February 28, 2017 06:51 - CONCLUSION: 1. The right retroperitoneal hematoma has increased in size, as above. There are 2 serpiginous arterially enhancing structures visualized, one in the right psoas muscle and another extending into the hematoma at the right iliac fossa. These could represent sites of continued active bleeding. 2. Stable moderate size left and small right pleural effusion with associated compressive atelectasis. 3. Stable small volume of free fluid in the abdomen and pelvis. There is also anasarca. The findings concerning the retroperitoneal hematoma were discussed with Dr. Aguiar via telephone at approximately 7: 10 AM on 02/28/2017. Angelo Allen MD Abdomen X-Ray 02/26/17 0000 Signed Impressions: Service Date/Time: Sunday, February 26, 2017 14:52 - CONCLUSION: 1. Nonobstructive bowel gas pattern. Juan Bhakta MD Upper Extremity Ultrasound 02/10/17 Signed Impressions: Service Date/Time: Friday, February 10, 2017 18:46 - CONCLUSION: Occlusive thrombus in the cephalic and basilic veins. Benjamin Person MD Lung Scan-V Nuclear Medicine 02/10/17 Signed Impressions: Service Date/Time: Friday, February 10, 2017 22:17 - CONCLUSION: Low probability pulmonary embolism. Candido Patton MD Head CT 02/10/17 Signed Impressions: Service Date/Time: Friday, February 10, 2017 23:51 - CONCLUSION: Negative noncontrast CT brain. Candido Patton MD Lumbar Puncture Fluoroscopy 02/01/17 0000 Signed Impressions: Service Date/Time: January 09:35 - CONCLUSION: Uncomplicated fluoroscopically guided lumbar puncture. CSF was clear. Nabeel Peralta MD Head Magnetic Resonance Angiography 01/27/17 Signed Impressions: Service Date/Time: Friday, January 27, 2017 10:33 - CONCLUSION: No intracranial vascular abnormality is identified. There is no aneurysm visualized. Angelo Allen MD IVC Filter Placement X-Ray 01/25/17 Signed Impressions: Service Date/Time: January 10:29 - CONCLUSION: Uncomplicated inferior vena cava filter placement as above. Yung Fowler MD Thoracic Spine MRI 01/24/17 0000 Signed Impressions: Service Date/Time: Tuesday, January 24, 2017 22:29 - CONCLUSION: 1. Mild degenerative spondylosis most prominently at T11-L1 with slight effacement of the anterior thecal sac and left lateral recess. No significant neural foraminal stenosis. 2. No acute fracture. Juan Bhakta MD Lumbar Spine MRI 01/23/17 0000 Signed Impressions: Service Date/Time: Monday, January 23, 2017 17:01 - CONCLUSION: 1. At L4-5 is a broad-based disc protrusion with severe central canal and lateral recess stenosis and flattening of the exiting right L4 nerve root. 2. L5-S1 there is a disc protrusion and moderate stenosis with flattening of the exiting L5 nerve roots bilaterally. 3. At L3-4 there is a moderate to severe central stenosis and lateral recess stenosis with mild foraminal stenosis. 4. No acute fracture or spondylolisthesis. Trace Holloway MD Lower Extremity Ultrasound 01/23/17 Signed Impressions: Service Date/Time: Monday, January 23, 2017 09:53 - CONCLUSION: Bilateral focal lower extremity DVT involving the posterior tibial veins. Angelo Garrido MD Cervical Spine MRI 01/23/17 Signed Impressions: Service Date/Time: Monday, January 23, 2017 17:01 - CONCLUSION: 1. Multilevel cervical spine degenerative changes as above. 2. Mild degrees of spinal stenosis at C3/C4-C6/C7. No cord compression or cord signal abnormality. 3. Age indeterminate left paracentral/foraminal disc protrusion at C6/C7. 4. Multilevel foraminal stenosis, most severe on the left at C6/C7. Please see individual levels above. 5. No fracture or subluxation of the cervical spine. Angelo Garrido MD Brain MRI 01/23/17 Signed Impressions: Service Date/Time: Monday, January 23, 2017 17:01 - CONCLUSION: 1. No acute stroke or other acute intracranial abnormality demonstrated. 2. Moderate severity chronic white matter changes, nonspecific but most likely related to chronic small vessel disease. 3. Few scattered tiny lacunar infarcts of the brainstem. 4. Given the findings are not entirely specific, clinical evaluation for possible multiple sclerosis recommended. Angelo Garrido MD Knee X-Ray 01/22/172053 Signed Impressions: Service Date/Time: Sunday, January 22, 2017 21:17 - CONCLUSION: 1. Evidence of moderate to large joint effusion. 2. No acute fracture or malalignment. 3. Mild 3 compartment osteoarthritic change. Benjamin Person MD Hip and Pelvis X-Ray 01/22/172053 Signed Impressions: Service Date/Time: Sunday, January 22, 2017 21:10 - CONCLUSION: 1. Mild to moderate degenerative change of both hips with no acute fracture or malalignment. There is flattening and remodeling of the right humeral head. Benjamin Person MD Physical Exam GENERAL: Awake and alert, on T-piece, not in distress SKIN: Cool and dry. No generalized rash. Edematous in extremities EYES: [place] conjunctiva. No petechia or hemorrhage. EARS, NOSE AND THROAT: Nose without bleeding or purulent nasal discharge. Dry oral mucosa NECK: Trach site ok. CARDIOVASCULAR: Regular rate and rhythm. Soft heart sounds. No murmurs RESPIRATORY: Coarse BS bilaterally, decreased at bases. ABDOMEN: Soft, not tender, distended, PEG site ok. No guarding rectal tube in place with small amount of liquid stool EXTREMITIES: No clubbing, cyanosis. Edema feet better; edema hands better, still present NEUROLOGICAL: awake and following commands PSYCHIATRIC: Calm and cooperative LINE: Lines with no evidence of infection Assessment & Plan Remarks IMPRESSION New Sepsis (fever and leucocytosis), temps up again x 1, and WBC up to 23K today Aspiration Pneumonia in health care setting. Mucus plugs with atelectasis. - completed Zerbaxa; on Tobra nebs Worsening leucocytosis. ESBL in urine in recent past. 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 PNA, ?plugging/atelctasis - MDR, I to Zerbaxa, has been tolerating T-piece - likely effusion adding to his respiratory problems, on top of his plugging /secretions Large R retroperitoneal bleed, S/P multiple transfusions and S/P coiling of bleeders Anemia, due to bleed, retroperitoneal MSSA sepsis, due to suppurative thrombophlebitis LUE, S/P I and D and excision of portion of cephalic vein - S/P Rx Respiratory failure, has had several intubations - reintubated again 02/28, extubated 03/11 - reintubated again - S/P trach 03/14 Recent Rx 7 days high dose solumedrol for transverse myelitis Wu LE DVT has IVC filter placed 01/25 - ?hypercoagulable state Chronic kidney disease, worsening creatinine - shock and compression of ureter by hematoma Known DM, HTN ? recurrent UTI, h/o ESBL ? C.diff - invalid result, needs to be repeated RECOMMENDATION cont 2 BC today UA and C/S fu repeat stool for C diff Continue Tobra nebs cont vanco po cont meropenem cont Diflucan Monitor temps Monitor progress Follow CBC dw Beena Rose MD Apr 22, 2017 18:57
[2017-04-22] MEDS: ATORVASTATIN 10 MG TAB PO SCH (21:17)
[2017-04-23] VITALS (10 sets, daily range): BP systolic 105–130; BP diastolic 68–72; PULSE 114–129; RESP 22–35; TEMP 97.9–99.2; O2SAT 96–100
[2017-04-23] MEDS: METOPROLOL TARTRATE 5 MG/5 ML VIAL IV PUSH PRN ×2 (01:45→09:36)
[2017-04-23] MEDS: oxyCODONE HCL ORAL CONC 5 MG/0.25 ML SYRINGE PO SCH ×6 (01:45→22:42)
[2017-04-23] MEDS: VANCOMYCIN 500 MG VIAL (FOR ORAL USE ONLY) PO SCH ×4 (01:45→22:43)
[2017-04-23 05:56] LABS: AUTOMATED NEUTROPHIL # 17.2 TH/MM3 (1.8-7.7); BASOPHIL # 0.1 TH/MM3 (0-0.2); BASOPHIL % 0.3 % (0.0-2.0); EOSINOPHIL # 1.1 TH/MM3 (0-0.4); EOSINOPHIL % 5.3 % (0.0-4.0); HEMATOCRIT 25.1 % (39.0-51.0); LYMPH % 6.7 % (9.0-44.0); LYMPHOCYTE # 1.4 TH/MM3 (1.0-4.8); MEAN CELL VOLUME 87.7 FL (80.0-100.0); MEAN CORPUSCULAR HEMOGLOBIN 27.7 PG (27.0-34.0); MEAN CORPUSCULAR HGB CONC 31.6 % (32.0-36.0); MONO % 6.9 % (0.0-8.0); NEUT % 80.8 % (16.0-70.0); PLATELET COUNT 262 TH/MM3 (150-450); RED BLOOD COUNT 2.86 MIL/MM3 (4.50-5.90); RED CELL DISTRIBUTION WIDTH 17.5 % (11.6-17.2); WHITE BLOOD COUNT 21.3 TH/MM3 (4.0-11.0)
[2017-04-23 05:59] LABS: HEMO FLAGS AUTO DIFF
[2017-04-23] MEDS: FREE WATER G-TUBE SCH (06:00)
[2017-04-23 06:14] LABS: ANION GAP 9 MEQ/L (5-15); AST (GOT) 22 U/L (15-37); BICARBONATE 21.5 MEQ/L (21.0-32.0); BLOOD UREA NITROGEN 34 MG/DL (7-18); CHLORIDE 113 MEQ/L (98-107); GLOMERULAR FILTRATION RATE 63 ML/MIN (>89); POTASSIUM 4.8 MEQ/L (3.5-5.1); SODIUM (NA) 143 MEQ/L (136-145)
[2017-04-23 06:15] LABS: ALT (GPT) 7 U/L (12-78)
[2017-04-23 06:18] LABS: ALKALINE PHOSPHATASE 91 U/L (45-117); TOTAL BILIRUBIN ADULT 0.4 MG/DL (0.2-1.0)
[2017-04-23] MEDS: HYDROCORTISONE 10 MG TAB PO SCH ×2 (06:26→17:49)
[2017-04-23 06:53] LABS: EOSINOPHILS 8 % (0-4); MYELOCYTES 3 % (0-0); NEUTROPHIL # MANUAL DIFF 15.5 TH/MM3 (1.8-7.7); PLATELET ESTIMATE SMEAR NORMAL (NORMAL); PLATELET MORPHOLOGY NORMAL (NORMAL); POLYS (SEG NEUTROPHILS) 70 % (16-70); SCAN/DIFF FINAL DIFF MANUAL; WBC DIFF SAMPLE 100
[2017-04-23 06:54] LABS: TEARDROP RBCS 1+ (NORMAL)
[2017-04-23] MEDS: CHLORHEXIDINE 0.12% (ORAL KIT) 15 ML CUP MT SCH ×2 (08:00→22:45)
[2017-04-23] MEDS: RESP: TOBRAMYCIN SULFATE 80 MG/2 ML NEB NEB SCH ×2 (08:17→19:37)
[2017-04-23] MEDS: SODIUM CHLOR 0.9% 1000 ML INJ 1,000 ML IV SCH (08:53)
[2017-04-23] MEDS: COLLAGENASE OINT 30 GM TUBE TOPICAL SCH (09:00)
[2017-04-23] MEDS: SODIUM CHLORIDE 0.9% FLUSH 10 ML FLUSH IV FLUSH SCH ×3 (09:00→22:45)
--- NOTE | 2017-04-23 10:34 | HHI.CCPN ---
Subjective Remarks/Hospital Course Date of admission: 01/22 Date of critical care medicine consult 02/10 due to acute hypoxemic respiratory failure requiring emergent intubation 62-year-old male with a past medical history of hypertension, hyperlipidemia, diabetes mellitus, gout, uric acid kidney stones, kidney disease of unknown stage who originally presented to [facility] emergency department on 01/22 after a fall in which he sustained a right distal ulna fracture. He had been experiencing a gradual primarily lower extremity weakness as well as upper extremity weakness that was progressive. Neurology consult was obtained. MRI revealed no acute stroke. He had multifocal white matter changes. Tiny lacunar infarcts of the brainstem. Lumbar MRI report states L4-L5 disc protrusion with cetnral canal stenosis. Dr. Blackwell evaluated and states no cord compression on MRI C/T spine and recommended nonoperative management. Symptoms were felt to be consistent with transverse myelitis and he underwent Solumedrol 250 mg IV q6 hours 01/27-02/02. He also was found to have occlusive thrombus in the bilateral posterior tibial veins. Heparin was being avoided because he had traumatic lumbar puncture on 01/26 and 02/01. IVC filter was placed 01/25. He was undergoing physical therapy, reportedly making some improvements with plan to eventually discharged home with his son (max assist standing, and bed to chair per PT note). Apparently he had some vomiting the evening of 02/09 and additional vomiting on 02/10. He had a fever 102.8 on 02/09. Last recorded bowel movement was 02/03. Tonight he had acute onset of severe hypoxemia and respiratory distress. [facility] called and he was brought emergently to [facility] where his sats were 64% on 100% nonrebreather with mean arterial pressure 44. He was emergently intubated, CVL and art line placed. He is in septic shock. SUBJ: 02/11: Patient remains intubated sedated, critically ill. FiO2 reduced to 80% after increasing PEEP to 12. In severe septic shock Levophed at 16 mcg/m, vasopressin at 0.04 international units. D/W vascular surgery Dr. Enciso. He performed bedside Left upper extremity incision and debridement and excision of septic cephalic vein. 02/12: Remains intubated sedated profoundly septic, in shock on vasopressin and 7 mcg/min Levophed. FiO2 has improved to 45%, WBC count remains elevated with 20 ,000 white count significant left shift. Slight improvement in creatinine 2.9 urine output 750 ml 24 hours. 2-D echo shows LV ejection fraction 20-25%, no vegetation reported. Blood cultures 4 staph aureus. Wound culture pending 02/13: Remains critically ill but stable to improving. WBC count is down to 16, creatinine improving to 2.36. Off all pressors. Urine output also improving. 1.5L in 24 hours 02/14: Extubated 02/13. Tolerating well. WBC now down to 12.8. Creat improving 2.3 to 2. UO 3.4L. remains off all pressors. Was started on Precedex yesterday night for agitation, currently on 0.5 g per KG per hour. Chest x-ray shows left more than right air space disease 02/20/17 Re consult: 62-year-old male who was originally admitted for lower extremity weakness and found to have what was thought to be possible transverse myelitis. His hospital course his included a healthcare associated pneumonia, septic thrombophlebitis, DVT. He was most recently in the hospital floor where he had significant nausea and vomiting and diarrhea. His C. difficile test was recently negative. However, he has experienced worsening acute on chronic renal failure, hypotension, tachycardia, and severe hypoxemia. He did have a bout of vomiting earlier today, and his hospitalist attending suspects that he may have aspirated. He arrives by rapid response to the ICU with a nonrebreather in place in severe respiratory distress with SPO2 of 85%. I emergently intubate the patient, see separate procedure note for details. At this point the patient was hypotensive and tachycardic. He does have a history of an EF of 20%, however clinically he appears in florid septic shock. I placed central line and arterial line started vasopressors and gentle IV fluid resuscitation with 1 L of LR. Patient today was empirically broadened to vancomycin and Zosyn from his oxacillin which was initially treating MSSA bacteremia. He is recultured. Critical-care medicine is consulted to evaluate and manage his worsening multiorgan system failure and decompensated septic shock 02/21: Patient remains intubated sedated. Becomes anxious tachypnea on sedation lightening. Chest x-ray shows mild left lower lobe infiltrate. WBC count is slightly improved today from 23.2 t0 21. C Diff negative. UO adequate, creat slightly worsening. 1.57 today 02/22: Remains intubated sedated tolerated CPAP yesterday, plan is for EGD/ Colonscopy. WBC count back to normal. UO adequate. Creat stable 02/23: Tolerating CPAP trials following commands. Will do a spontaneous breathing trials. Status post EGD colonoscopy yesterday -Gastritis, esophagitis. Diverticulosis and multiple polyps. Urine output adequate but creatinine increasing to 1.7 with patient requiring multiple straight catheterization. We'll reinsert Sloan. 02/24: Breathing comfortably 24 hours after extubation. Protects airway well. 02/25: Excoriate bottom, will place rectal FMS. Start pureed diet. 02/26: Afebrile. Complaining of nausea and vomiting this afternoon. Increased stool output. Continue potassium replacement today. 02/27: 10 PM overnight, acutely hypotensive. Received 3 units PRBCs. Antibiotic coverage broadened to piperacillin/tazobactam, cortisol and 1 dose of vancomycin. Oxacillin drip currently on hold. Symptomatically, patient continues to vague abdominal pain/nausea vomiting which is unchanged for the past several days. Lipase elevated yesterday. Lactic acid normal. Troponin normal. Urinary retention after removal of Sloan. Straight catheter 1300. Cc 02/28: New diagnosis large retroperitoneal hematoma. Received 10 PRBC, 14 FFP, 2 platelets, 1 cryo-, 6 g calcium chloride, 2 is magnesium sulfate and 4 mg Bumex. CTA abdomen revealed possible arterial bleeds iliac, lumbar. Patient is currently on norepinephrine and epinephrine drips and possible need right nephrostomy tube placement due to large hematoma compressing ureter. Intra-abdominal bladder pressures are currently 13 03/01: Afebrile. Received 25 g albumin and 1 unit PRBCs overnight. Intra- abdominal bladder pressures currently 19. Currently on 3 micrograms per minute of norepinephrine. [id number] 1 out of 4 on 4 mics grams per kilogram per minute of cisatracurium. 03/02: Slightly hypothermic overnight. Hemoglobin appears to have stabilized. Troponin bump overnight likely secondary to demand ischemia from hypotension. Hemodynamically stable off all vasopressors. 03/03: Received 1 PRBCs overnight. 3 units currently. Off all vasopressors. Likely rebleeding. Stool is dark. 03/04: Remains unstable. Ventilator dependent. 03/05: afebrile. hgb stable. 03/06: bumex drip started overnight. good uop after bumex initiated. still grossly volume overloaded. Cr downtrending. more awake with transition to propofol. still too volume overloaded to tolerate extubation. hgb stable. 03/07: Afebrile. Tolerating tube feeds at goal with Nepro. Positive BM. On low-dose fentanyl and propofol drips. Potassium currently being replaced. 03/08: Eyes will open on ventilator. Afebrile. Tolerating tube feeding. Failed PSV trial yesterday due to apnea. 03/09: Following commands. Tmax 101. Tolerating tube feeding. One hour PSV trial yesterday. Currently tolerating well so far today 1.5 hours 03/10: Low-grade temperatures. Tolerating PSV trial 10 hours yesterday. Currently at 5/5 at 35%. We'll probably attempt extubation a.m. after hemodialysis. 03/11: Extubated currently in 4 L nasal cannula. Thick secretions thick clear with cough. Currently afebrile. Tolerating diet previously. 03/12: Sleepy this morning but arouses. Following commands. Refusing diet at the present time. On 2 L nasal cannula. 03/13: Patient reintubated last night for worsening respiratory status. Currently sedated on mechanical ventilation. Became hypotensive following intubation and is on Levophed 20 mics per minute. 03/14: Sedated, orally intubated on mech vent at the time of my evaluation this AM, subsequently underwent perc trach placement. Remains on levophed for pressor support. Transfused 1 unit PRBCs today. Persisten 03/15: Trach site clean, dry. CXR with bilateral basilar infiltrates. 03/16: Pulmonary congestion persists. Clinical condition not improving. Prognosis becoming increasingly bleak. 03/17: Glucose intolerance worse. No improvement in neurological function. 03/18: Remains on mechanical ventilation via tracheostomy. Off pressors now. Neurologic status remains poor. 03/19: Drowsy, encephalopathic, arousable. On mechanical ventilation via tracheostomy. Levemir increased for hyperglycemia today. Remains off pressors 03/20: More awake, moves both upper extremities. On mechanical ventilation via tracheostomy. Daily C Pap trials ongoing. 03/21: Awake and alert. On mechanical ventilation via tracheostomy. Opens and closes eyes on command. 03/22: Awake and alert. Tolerated T PIECE for 7 hours yesterday. Dialyzed today. 03/23: Currently on T piece trial. Status post dialysis yesterday on 3 L. Awake and alert. Wants to eat. Subjective 03/24: Currently afebrile. Hemodialysis catheter discontinued yesterday from left IJ. Persistent leukocytosis noted. Potassium will be replaced. Furosemide 40 mg twice a day IV to 20 mg IV twice a day 03/25: WBC count unchanged. Patient on T piece with humidified air greater than 48 hours, tolerating it well. Reconsulted 04/12: The patient was transferred emergently from the floor/ [facility]. Patient was initially seen by operator electronic warfare Dr. Estrada, and the patient was noted to be tachypneic on T piece of 40%. ABGs were performed which showed a PaO2 of 60 on T piece of FiO2 of 40%. Chest x-ray was performed which showed loss of entire left hemidiaphragm assistant center director consolidation in the left lower lobe. Concern for mucus plugging versus fluid. The patient was transferred emergently to [facility] placed on a ventilator CT of the chest is pending. Upon arrival in the room the patient is alert and oriented, mouthing words, nodding head to yes and no questions O2 sat is 100% but patient is currently on mechanical ventilation. Currently in no respiratory distress. 04/13: Tmax 99.8. The patient's oxygen requirements have decreased currently FiO2 35% with a PaO2 1 blood gas of 85, O2 saturation 100%. No respiratory distress noted. Patient underwent CT of the chest yesterday noted pleural effusions left greater than right, diagnostic/and therapeutic CT thoracentesis plan for this a.m.. 04/14: Patient underwent CT-guided thoracentesis of the right side with approximately 600 cc withdrawn. Today operator electronic warfare Dr. LABOY in and up size indwelling 6.0 Shiley to a 8.0 Shiley. Minimal bleeding noted around the site. X-ray improving. Patient started on CPAP trials today, as well as tube feeds were initiated. 04/15: Placed on T piece this morning via tracheostomy. Appears to be tolerating it. Laying in bed not in any acute distress. 04/16: Awake and alert. Tolerating T piece. Tolerating PEG feeds. 04/17: Awake and alert. Tolerating T piece. Tolerating tube feeds via PEG 04/18: Awake and alert. Tolerating TPs. Tolerating tube feeds. Passed swallow eval 04/19: Awake and alert. Remains on T piece. Wants to move out of ICU as he indicates to me once again as he has for the past few days. Awaiting CIC bed 04/20: Awake and alert. Remains on T piece. Developed hypotension last night for which she was transiently on Levophed however has been off since early this morning. ID adjusting antibiotics and working up for new sepsis. 04/21: Awake and alert. On T piece. Awaiting CIC bed for the last few days. 04/22: Awake and alert. Remains on T piece. Received 500 cc normal saline this morning for tachycardia. 04/23 No events overnight. Remains on TP's with 35% FIO2. Afebrile. Objective Vital Signs Date Time Temp Pulse Resp B/P (MAP) Pulse Ox O2 Delivery O2 Flow Rate FiO2 04/23/17 08:19 100 T-piece 6.00 35 04/23/17 04:00 129 04/23/17 04:00 98.0 30 105/68 (80) Intake and Output 04/23/17 04/23/17 04/24/17 08:00 16:00 00:00 Intake Total 1830 ml Output Total 1400 ml Balance 430 ml Result Diagram: 04/23/17 0345 04/23/17 0355 Other Results Laboratory Tests Test 04/22/17 10:42 04/22/17 13:00 04/23/17 03:45 04/23/17 03:55 White Blood Count 16.6 TH/MM3 21.3 TH/MM3 Red Blood Count 3.08 MIL/MM3 2.86 MIL/MM3 Hemoglobin 8.2 GM/DL 7.9 GM/DL Hematocrit 26.7 % 25.1 % Mean Corpuscular Volume 86.6 FL 87.7 FL Mean Corpuscular Hemoglobin 26.7 PG 27.7 PG Mean Corpuscular Hemoglobin Concent 30.8 % 31.6 % Red Cell Distribution Width 17.6 % 17.5 % Platelet Count 263 TH/MM3 262 TH/MM3 Mean Platelet Volume 7.9 FL 8.2 FL Neutrophils (%) (Auto) 80.4 % 80.8 % Lymphocytes (%) (Auto) 6.5 % 6.7 % Monocytes (%) (Auto) 8.2 % 6.9 % Eosinophils (%) (Auto) 4.5 % 5.3 % Basophils (%) (Auto) 0.4 % 0.3 % Neutrophils # (Auto) 13.3 TH/MM3 17.2 TH/MM3 Lymphocytes # (Auto) 1.1 TH/MM3 1.4 TH/MM3 Monocytes # (Auto) 1.4 TH/MM3 1.5 TH/MM3 Eosinophils # (Auto) 0.7 TH/MM3 1.1 TH/MM3 Basophils # (Auto) 0.1 TH/MM3 0.1 TH/MM3 CBC Comment AUTO DIFF AUTO DIFF Differential Total Cells Counted 100 100 Neutrophils % (Manual) 76 % 70 % Band Neutrophils % 3 % Lymphocytes % 6 % 10 % Monocytes % 7 % 9 % Eosinophils % 6 % 8 % Neutrophils # (Manual) 13.4 TH/MM3 15.5 TH/MM3 Metamyelocytes 2 % Differential Comment FINAL DIFF MANUAL FINAL DIFF MANUAL Platelet Estimate NORMAL NORMAL Platelet Morphology Comment NORMAL NORMAL Tear Drop Cells 1+ 1+ Blood Urea Nitrogen 37 MG/DL 34 MG/DL Creatinine 1.26 MG/DL 1.17 MG/DL Random Glucose 132 MG/DL 136 MG/DL Total Protein 5.4 GM/DL 5.3 GM/DL Albumin 2.5 GM/DL 2.2 GM/DL Calcium Level 8.7 MG/DL 8.6 MG/DL Phosphorus Level 2.2 MG/DL Magnesium Level 1.8 MG/DL Alkaline Phosphatase 86 U/L 91 U/L Aspartate Amino Transf (AST/SGOT) 22 U/L 22 U/L Alanine Aminotransferase (ALT/SGPT) 9 U/L 7 U/L Total Bilirubin 0.4 MG/DL 0.4 MG/DL Sodium Level 143 MEQ/L 143 MEQ/L Potassium Level 5.0 MEQ/L 4.8 MEQ/L Chloride Level 114 MEQ/L 113 MEQ/L Carbon Dioxide Level 22.4 MEQ/L 21.5 MEQ/L Anion Gap 7 MEQ/L 9 MEQ/L Estimat Glomerular Filtration Rate 58 ML/MIN 63 ML/MIN Stool C. difficile Toxin (PCR) ERROR Stl C. difficile Toxin Epiderm 027 ERROR Myelocytes 3 % Imaging Last Impressions Chest X-Ray 04/17/17 0000 Signed Impressions: Service Date/Time: Monday, April 17, 2017 03:40 - CONCLUSION: Mild left effusion and possible accompanying atelectasis or consolidation at the left base Angelo Manzo MD Thoracentesis 04/13/17 1054 Signed Impressions: Service Date/Time: Thursday, April 13, 2017 15:26 - CONCLUSION: Uncomplicated CT-guided right thoracentesis. Candido Mendoza Jr., MD Chest CT 04/12/17 1558 Signed Impressions: Service Date/Time: March 17:51 - CONCLUSION: 1. Slight increase in size of bilateral effusions and basilar atelectasis, left greater than right compared with February 27. Tracheostomy in good position. Trace Holloway MD Renal Ultrasound 04/02/17 0000 Signed Impressions: Service Date/Time: Sunday, April 02, 2017 16:59 - CONCLUSION: Limited exam with the left kidney being unable to be evaluated in the bladder not distended. There do appear to be multiple shadowing stones at the right kidney without hydronephrosis. Angelo Manzo MD Wrist X-Ray 03/27/17 0000 Signed Impressions: Service Date/Time: Monday, March 27, 2017 13:21 - CONCLUSION: 1. No acute fracture is identified. A portion of the previously documented distal ulna fracture remains visualized. 2. 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 Angelo Allen MD Aortography 02/28/17 0000 Signed Impressions: Service Date/Time: Tuesday, February 28, 2017 08:01 - CONCLUSION: 1. Active hemorrhage from distal right lateral sacral and iliolumbar branches successfully coil and Gelfoam embolized, as above. Juan Bhakta MD Abdomen/Pelvis CT 02/28/17 0000 Signed Impressions: Service Date/Time: Tuesday, February 28, 2017 06:51 - CONCLUSION: 1. The right retroperitoneal hematoma has increased in size, as above. There are 2 serpiginous arterially enhancing structures visualized, one in the right psoas muscle and another extending into the hematoma at the right iliac fossa. These could represent sites of continued active bleeding. 2. Stable moderate size left and small right pleural effusion with associated compressive atelectasis. 3. Stable small volume of free fluid in the abdomen and pelvis. There is also anasarca. The findings concerning the retroperitoneal hematoma were discussed with Dr. Aguiar via telephone at approximately 7: 10 AM on 02/28/2017. Angelo Allen MD Abdomen X-Ray 02/26/17 Signed Impressions: Service Date/Time: Sunday, February 26, 2017 14:52 - CONCLUSION: 1. Nonobstructive bowel gas pattern. Juan Bhakta MD Upper Extremity Ultrasound 02/10/17 Signed Impressions: Service Date/Time: Friday, February 10, 2017 18:46 - CONCLUSION: Occlusive thrombus in the cephalic and basilic veins. Benjamin Person MD Lung Scan-V Nuclear Medicine 02/10/17 Signed Impressions: Service Date/Time: Friday, February 10, 2017 22:17 - CONCLUSION: Low probability pulmonary embolism. Candido Patton MD Head CT 02/10/17 Signed Impressions: Service Date/Time: Friday, February 10, 2017 23:51 - CONCLUSION: Negative noncontrast CT brain. Candido Patton MD Lumbar Puncture Fluoroscopy 02/01/17 Signed Impressions: Service Date/Time: January 09:35 - CONCLUSION: Uncomplicated fluoroscopically guided lumbar puncture. CSF was clear. Nabeel Peralta MD Head Magnetic Resonance Angiography 01/27/17 Signed Impressions: Service Date/Time: Friday, January 27, 2017 10:33 - CONCLUSION: No intracranial vascular abnormality is identified. There is no aneurysm visualized. Angelo Allen MD IVC Filter Placement X-Ray 01/25/17 Signed Impressions: Service Date/Time: January 10:29 - CONCLUSION: Uncomplicated inferior vena cava filter placement as above. Yung Fowler MD Thoracic Spine MRI 01/24/17 Signed Impressions: Service Date/Time: Tuesday, January 24, 2017 22:29 - CONCLUSION: 1. Mild degenerative spondylosis most prominently at T11-L1 with slight effacement of the anterior thecal sac and left lateral recess. No significant neural foraminal stenosis. 2. No acute fracture. Juan Bhakta MD Lumbar Spine MRI 01/23/17 Signed Impressions: Service Date/Time: Monday, January 23, 2017 17:01 - CONCLUSION: 1. At L4-5 is a broad-based disc protrusion with severe central canal and lateral recess stenosis and flattening of the exiting right L4 nerve root. 2. L5-S1 there is a disc protrusion and moderate stenosis with flattening of the exiting L5 nerve roots bilaterally. 3. At L3-4 there is a moderate to severe central stenosis and lateral recess stenosis with mild foraminal stenosis. 4. No acute fracture or spondylolisthesis. Trace Holloway MD Lower Extremity Ultrasound 01/23/17 Signed Impressions: Service Date/Time: Monday, January 23, 2017 09:53 - CONCLUSION: Bilateral focal lower extremity DVT involving the posterior tibial veins. Angelo Garrido MD Cervical Spine MRI 01/23/17 Signed Impressions: Service Date/Time: Monday, January 23, 2017 17:01 - CONCLUSION: 1. Multilevel cervical spine degenerative changes as above. 2. Mild degrees of spinal stenosis at C3/C4-C6/C7. No cord compression or cord signal abnormality. 3. Age indeterminate left paracentral/foraminal disc protrusion at C6/C7. 4. Multilevel foraminal stenosis, most severe on the left at C6/C7. Please see individual levels above. 5. No fracture or subluxation of the cervical spine. Angelo Garrido MD Brain MRI 01/23/17 Signed Impressions: Service Date/Time: Monday, January 23, 2017 17:01 - CONCLUSION: 1. No acute stroke or other acute intracranial abnormality demonstrated. 2. Moderate severity chronic white matter changes, nonspecific but most likely related to chronic small vessel disease. 3. Few scattered tiny lacunar infarcts of the brainstem. 4. Given the findings are not entirely specific, clinical evaluation for possible multiple sclerosis recommended. Angelo Garrido MD Knee X-Ray [id number]/22/[id number] Signed Impressions: Service Date/Time: Sunday, January 22, 2017 21:17 - CONCLUSION: 1. Evidence of moderate to large joint effusion. 2. No acute fracture or malalignment. 3. Mild 3 compartment osteoarthritic change. Benjamin Person MD Hip and Pelvis X-Ray [id number] Signed Impressions: Service Date/Time: Sunday, January 22, 2017 21:10 - CONCLUSION: 1. Mild to moderate degenerative change of both hips with no acute fracture or malalignment. There is flattening and remodeling of the right humeral head. Benjamin Person MD Objective Remarks GENERAL: 62-year-old male, resting in bed, on T piece, in no apparent distress nodding head to yes and no questions HEENT: Normocephalic. Atraumatic. Pupils equal, round, reactive. NECK: Tracheostomy in place, around trach site erythematous, yellowish drainage CHEST: On T piece, air entry decreased bilaterally . Scattered rhonchi, no wheezing CARDIOVASCULAR: S1-S2 regular, no gallop or murmur ABDOMEN distended. No rigidity. Umbilical hernia is reducible. No guarding. PEG tube in place : Positive scrotal edema Sloan in situ MUSCULOSKELETAL: Pulses 2+. 1+ bilateral upper and lower extremity edema. NEUROLOGICAL: Awake and alert, has spontaneous eye opening. Opens and closes eyes on command. Moves 4 limbs weakly to stimulation. Procedures 01/25/2017- Retrievable IVC Filter placement 01/26/17-lumbar puncture with fluoroscopy-by interventional radiology 02/01/17- lumbar puncture fluoroscopy by interventional radiology 02/10/17- Endotracheal Intubation 02/10/17-left IJ central venous line placed 02/10/17-left femoral arterial line placed 02/11/17-Diagnostic and therapeutic bronchoscopy with bronchoalveolar lavage 02/11/17-Left upper extremity incision and debridement with excision of septic cephalic vein 02/13/17- Extubated 02/20/17- endotracheal intubation 02/20/17- Left subclavian central line placement 02/20/17-Right radial A-line placement 02/22/17-EGD/colonoscopy 02/28/17-right radial a line 02/28/17- Endotracheal intubation 02/28/17- right sided introducer catheter placement 02/28/17- Right IJ central line placement 02/28/17-Right chest tube placement 02/28/17- Embolization of inferior and superior sacral branches of right internal iliac artery 03/01/17- Hemodialysis access catheter 03/03/17-Right IJ central line placement 03/11/17-Extubated 03/13/17- Endotracheal intubation 03/14/17-Tracheostomy placement, trach downsized to 6.0 Anni 03/30/17 03/15/17-PEG tube placement 04/11/17-CT Chest 04/13/17-thoracentesis right 600 cc removed Date of Insertion: Feb 20, 2017 Date of Insertion: Mar 03, 2017 Line: Central Venous Catheter Side: Right Location: Internal, Jugular A/P Problem List: (1) Septic shock ICD Code: A41.9 - Sepsis, unspecified organism; R65.21 - Severe sepsis with septic shock Status: Acute (2) Acute respiratory failure ICD Code: J96.00 - Acute respiratory failure, unspecified whether with hypoxia or hypercapnia Status: Acute (3) Thrombophlebitis arm ICD Code: I80.8 - Phlebitis and thrombophlebitis of other sites (4) Aspiration pneumonia ICD Code: J69.0 - Pneumonitis due to inhalation of food and vomit Status: Acute (5) Atelectasis of left lung ICD Code: J98.11 - Atelectasis Status: Acute (6) Quadriparesis ICD Code: G82.50 - Quadriplegia, unspecified Status: Acute (7) DVT (deep venous thrombosis) ICD Code: I82.409 - Acute embolism and thrombosis of unspecified deep veins of unspecified lower extremity (8) Altered mental status ICD Code: R41.82 - Altered mental status, unspecified Status: Acute (9) CKD (chronic kidney disease) stage 3, GFR 30-59 ml/min ICD Code: N18.3 - Chronic kidney disease, stage 3 (moderate) Status: Chronic (10) Acute renal failure ICD Code: N17.9 - Acute kidney failure, unspecified Status: Acute (11) Diabetes mellitus ICD Code: E11.9 - Type 2 diabetes mellitus without complications Status: Chronic (12) Distal end of ulna fracture, closed ICD Code: S52.609A - Unspecified fracture of lower end of unspecified ulna, initial encounter for closed fracture Status: Acute (13) Gout ICD Code: M10.9 - Gout, unspecified Status: Chronic Assessment and Plan Assessment: NEURO/PSYCH: Acute metabolic encephalopathy- persistent Quadriparesis secondary to suspected transverse myelitis Recurrent falls Suspected transverse myelitis. Received methylprednisolone 250 mg IV every 6 hours 01/27-02/02, started back on hydrocortisone 02/21/17, initially tapering to 50 mg IV every 8 hours starting received 1 dose at 2100 prior to becoming hypotensive. weaning hydrocortisone taper and stopped 03/09. Resumed hydrocortisone 50mg IV Q6hrly on 03/14 as patient became hypotensive following intubation on 03/13 requiring levophed. Continue Hydrocortisone 50 mg IV every 6 hours LP 01/26 and 02/01. CSF culture negative 01/26, 02/01 Oligoclonal bands negative. CSF/serum IgG index is not elevated. VDRL nonreactive. Cryptococcal antigen negative. Brain MRI 01/23 no acute stroke. Few scattered lacunar infarcts of the brainstem. Moderate chronic white matter changes. MRI cervical/thoracic spine- mild spinal stenosis C3/C4 to C6/C7. No cord compression. RPR negative Neurology has been following, Dr. Crenshaw. Repeat CT brain 02/10 - negative Continue PT/OT Continue oxycodone 10 mg every 4 hours scheduled RESP: Acute hypoxemic respiratory failure Healthcare associated pneumonia/Aspiration Pneumonia S/P Right-sided chest tube 02/28 Off mechanical ventilation, vent bundle, tolerating T piece. -On T piece >48 hours. Humidified room air Albuterol/ipratropium aerosols every 6 hours with albuterol aerosols every 2 hours prn VQ scan 02/10 low probability for PE. CT chest 02/10 - left lower lobe collapse and consolidation. CT chest 02/27 revealed right greater than left pleural effusions. Extubated 02/23. Intubated 02/28. Extubated 03/11, Reintubated on 03/13. Right-sided chest tube placement 02/28 handbag finisher, removed 03/05. Failed attempt to wean successfully due to volume overload and multiple organ failure. underwent perc tracheostomy 03/14. CT chest 04/12-slight increase and bilateral effusions left greater than right basilar atelectasis CXR 04/13-moderate pleural effusion left with consolidation of the left lung Pulmonology following Dr. Estrada - 04/13 CT guided thoracentesis scheduled emergently as discussed with Dr. Estrada - 600cc removed (right) 04/14-tracheostomy up sized to 8.0 [place] by operator electronic warfare Dr. Estrada at bedside CV: Severe sepsis - resolved. Systolic heart failure likely chronic with ejection fraction 20-25% Hyperlipidemia History of hypertension Mild TR Sinus tachycardia Elevated troponin likely type II demand ischemia Monitor HR and BP keep MAP>65mmHg As needed Nitropaste, labetalol and hydralazine for hypertension Atorvastatin 10 mg by mouth daily for dyslipidemia. Troponin 0.[address]-T changes. 2-D echocardiogram 01/11 revealed EF 20-25%. Mild TR. Pulmonary arterial pressures were normal around 20 GI: Large right retroperitoneal hematoma Erosive esophagitis Adematous/hyperplastic colon polyps Severe acute protein calorie malnutrition Nausea/vomiting - resolved. Diarrhea Gastritis Diverticulosis Internal and external hemorrhoids Hiatal hernia Elevated lipase Continue tube feeds- on Glucerna 1.5 @65ml/hr 02/27 CT chest/abdomen and pelvis - 9.4 x 7.5 renal and 16 x 12 cm right psoas muscle hematoma. Fluid around liver and spleen. Right-sided nephrolithiasis CTA abdomen 02/28 - possible blushing around iliac/lumbar vessels Discussed with IR. s/p attempted embolization CT abdomen and pelvis 02/10 atrophic left kidney. Bilateral inguinal hernias fat- containing. Nonobstructing 12 mm right kidney stone repeat CT abd/pelvis did not show evidence of obstruction. patient clinically has been having diarrhea (c. diff negative 02/19). also with nausea/vomiting of unclear etiology. EGD/Colonoscopy-02/22/17 showed gastritis esophagitis, hiatal hernia, diverticulosis and multiple polyps in descending colon and sigmoid which were snared biopsied. 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 Recommended nephrostomy tube if obstruction Nephrology consulted, off hemodialysis. Making urine. ICU electrolyte replacement protocol Last IHD was 03/22 ID: Septic shock- resolved. Abscess and Suppurative thrombophlebitis left upper extremity MSSA bacteremia Klebsiella UTI ESBL positive Acute aspiration pneumonia/HCAP Previously treated with Bactrim, ertapenem, intermittent vancomycin, nafcillin Blood cultures 2, UA ESBL positive Klebsiella UTI Sputum 03/14 - Pseudomonas came back resistant to imipenem, Stenotrophomonas maltophilia Antibiotics per ID. on Tobra nebs, Merrem, PO Vanco and Diflucan, ID-Dr. Edwards. HEME: Acute blood loss anemia DVT, bilateral posterior tibial vein, IVC filter Septic thrombophlebitis with occlusive thrombus mid cephalic and basilic vein side Monitor CBC Received 10 PRBC, 14 FFP, 2 platelets, 1 cryo-02/28 Received 3 units PRBCs Ultrasound 01/23/17 - Bilateral lower extremity with occlusive posterior tibial vein DVTs. Heparin was initially started for DVT but was placed on hold due to LP with suspected traumatic tap. Currently holding full anticoagulation with enoxaparin 100 mg IV twice a day due to anemia as of 02/26 IVC filter was placed 01/25/17. Ultrasound LUE 02/10 occlusive thrombus mid cephalic vein, basilic vein.s. Transfuse 3 units PRBCs 02/27 Transfuse 2 units PRBCs 03/01. Transfused 1 unit PRBCs on 03/14 ENDO: Diabetes mellitus Hypoglycemia History of prior adrenal insufficiency with shock Gout EGD colonoscopy completed 02/22. gastritis and esophagitis, colon polyps On tape dose steroids- HC 10 mg by mouth every 12 hourly Accu-Cheks to maintain euglycemia Novulin R every 4 hours. Low Regimen Currently on insulin detemir 25 units twice a day for hyperglycemia MSK: Right distal ulna fracture. Recommended nonoperative management. PROPH: Lansoprazole 30 mg twice a day twice a day for stress ulcer prophylaxis. Has IVC filter. Therapeutic enoxaparin was placed on hold for retroperitoneal hematoma ACCESS: right IJ CVL placed 03/03-03/20. A left IJ hemodialysis catheter placed 03/01 - 03/23. Left femoral A line placed 03/14 - discontinued 03/19 Dispo: Discussed with ELECTRICIAN YARD at bedside Patient waiting for transfer out of ICU since 04/17. Consult placed to hospitalist service on 04/17. Hospitalist service to take over patient care when patient transferred out of ICU. Problem Qualifiers (1) Aspiration pneumonia: (2) DVT (deep venous thrombosis): Qualified Codes: I82.443 - Acute embolism and thrombosis of tibial vein, bilateral (3) Acute renal failure: Qualified Codes: N17.9 - Acute kidney failure, unspecified (4) Diabetes mellitus: (5) Gout: Hood Madera MD Apr 23, 2017 10:34
--- NOTE | 2017-04-23 10:42 | HHI.IDPN ---
Subjective Subjective Remarks Patient is a 62-year-old male, admitted to the hospital for evaluation of pain in his right wrist. He gave a history of falling about a week ago and apparently had immediate pain in the right wrist. He did not seek any medical attention initially because reportedly he was very busy. He eventually presented, and he was found to have a distal ulnar fracture on plain films. He also had some redness and swelling. Orthopedics saw the patient, and was being treated conservatively with the splint. During this hospitalization also he started complaining of generalized weakness but more so in his lower extremity than his upper extremity. He had swelling in both lower extremity which revealed evidence of DVT in the posterior tibial veins. Neurology had seen the patient and he underwent lumbar puncture which apparently was traumatic. Patient was therefore not given anticoagulation because of the traumatic LP, and he underwent placement of an IVC filter on January 25. Patient had another lumbar puncture on February 01. He was felt to have transverse myelitis, and he was given high-dose IV Solu-Medrol from January 27 to February 02. There was apparently some improvement in his weakness. The imaging studies done for his weakness showed some spinal stenosis, and neurosurgery was consult that and recommended that there was no surgical intervention to be done. Patient has been stabilizing, but last night apparently deteriorated, and he ended up getting intubated, and had significant hypotension requiring pressors. There was also an ultrasound done of his left upper extremity which showed DVT, and there was evidence of superior 2 thrombophlebitis. Vascular surgery was consult to it and he had IND on his left upper extremity. Patient has had some fevers since yesterday. 2 blood cultures were done yesterday and they're now reported as growing gram-positive cocci in [place] in clusters. He is currently sedated and intubated. He is on Levophed and vasopressin. A central line was placed as well as a femoral a line. He apparently had an IV in his left upper extremity and that was removed yesterday. Patient also has history of chronic kidney disease, and nephrology evaluated the patient. He was just being monitored for his renal insufficiency. Reconsulted 04/12 for low grade fever, leucocytosis, worsening CXR concern for new pneumonia. Notes reviewed Temps better, only one time fever 04/20 UC with yeast Has diarrhea C diff not done - has an inhibitor in stool? WBC remains elevated Remains on T-piece Antibiotics fluconazole Vancomycin Meropenem Tobra INH Lines PIV - Line sites with no e.o infection Past Medical History Reviewed Allergies: Coded Allergies: levofloxacin (Verified Allergy, Severe, 01/22/17) Objective . Vital Signs Date Time Temp Pulse Resp B/P (MAP) Pulse Ox O2 Delivery O2 Flow Rate FiO2 04/23/17 08:19 100 T-piece 6.00 35 04/23/17 04:00 129 04/23/17 04:00 98.0 129 30 105/68 (80) 98 04/23/17 00:00 98.3 118 26 127/71 (89) 99 04/23/17 00:00 118 04/22/17 20:00 129 04/22/17 20:00 98.7 129 31 119/66 (83) 97 04/22/17 19:58 98 T-piece 5.00 35 04/22/17 19:00 97 T-Piece 35 04/22/17 16:00 99.5 131 21 101/51 (68) 98 04/22/17 16:00 131 04/22/17 15:23 27 04/22/17 12:00 98.8 130 21 112/51 (71) 95 04/22/17 12:00 130 . Laboratory Tests Test 04/22/17 10:42 04/23/17 03:45 White Blood Count 16.6 TH/MM3 21.3 TH/MM3 Red Blood Count 3.08 MIL/MM3 2.86 MIL/MM3 Hemoglobin 8.2 GM/DL 7.9 GM/DL Hematocrit 26.7 % 25.1 % Mean Corpuscular Volume 86.6 FL 87.7 FL Mean Corpuscular Hemoglobin 26.7 PG 27.7 PG Mean Corpuscular Hemoglobin Concent 30.8 % 31.6 % Red Cell Distribution Width 17.6 % 17.5 % Platelet Count 263 TH/MM3 262 TH/MM3 Mean Platelet Volume 7.9 FL 8.2 FL Neutrophils (%) (Auto) 80.4 % 80.8 % Lymphocytes (%) (Auto) 6.5 % 6.7 % Monocytes (%) (Auto) 8.2 % 6.9 % Eosinophils (%) (Auto) 4.5 % 5.3 % Basophils (%) (Auto) 0.4 % 0.3 % Neutrophils # (Auto) 13.3 TH/MM3 17.2 TH/MM3 Lymphocytes # (Auto) 1.1 TH/MM3 1.4 TH/MM3 Monocytes # (Auto) 1.4 TH/MM3 1.5 TH/MM3 Eosinophils # (Auto) 0.7 TH/MM3 1.1 TH/MM3 Basophils # (Auto) 0.1 TH/MM3 0.1 TH/MM3 CBC Comment AUTO DIFF AUTO DIFF Differential Total Cells Counted 100 100 Neutrophils % (Manual) 76 % 70 % Band Neutrophils % 3 % Lymphocytes % 6 % 10 % Monocytes % 7 % 9 % Eosinophils % 6 % 8 % Neutrophils # (Manual) 13.4 TH/MM3 15.5 TH/MM3 Metamyelocytes 2 % Differential Comment FINAL DIFF MANUAL FINAL DIFF MANUAL Platelet Estimate NORMAL NORMAL Platelet Morphology Comment NORMAL NORMAL Tear Drop Cells 1+ 1+ Myelocytes 3 % Laboratory Tests Test 04/22/17 10:42 04/23/17 03:55 Blood Urea Nitrogen 37 MG/DL 34 MG/DL Creatinine 1.26 MG/DL 1.17 MG/DL Random Glucose 132 MG/DL 136 MG/DL Total Protein 5.4 GM/DL 5.3 GM/DL Albumin 2.5 GM/DL 2.2 GM/DL Calcium Level 8.7 MG/DL 8.6 MG/DL Phosphorus Level 2.2 MG/DL Magnesium Level 1.8 MG/DL Alkaline Phosphatase 86 U/L 91 U/L Aspartate Amino Transf (AST/SGOT) 22 U/L 22 U/L Alanine Aminotransferase (ALT/SGPT) 9 U/L 7 U/L Total Bilirubin 0.4 MG/DL 0.4 MG/DL Sodium Level 143 MEQ/L 143 MEQ/L Potassium Level 5.0 MEQ/L 4.8 MEQ/L Chloride Level 114 MEQ/L 113 MEQ/L Carbon Dioxide Level 22.4 MEQ/L 21.5 MEQ/L Anion Gap 7 MEQ/L 9 MEQ/L Estimat Glomerular Filtration Rate 58 ML/MIN 63 ML/MIN Microbiology Date/Time Source Procedure Growth Status 04/20/17 15:19 Blood Peripheral Aerobic Blood Culture - Preliminary NO GROWTH IN 2 DAYS Resulted 04/20/17 15:19 Blood Peripheral Anaerobic Blood Culture - Preliminary NO GROWTH IN 2 DAYS Resulted 04/20/17 15:10 Blood Peripheral Aerobic Blood Culture - Preliminary NO GROWTH IN 2 DAYS Resulted 04/20/17 15:10 Blood Peripheral Anaerobic Blood Culture - Preliminary NO GROWTH IN 2 DAYS Resulted 04/20/17 22:30 Urine Catheterized Urine Urine Culture - Preliminary Yeast Species Resulted Imaging Last Impressions Chest X-Ray 04/17/17 0000 Signed Impressions: Service Date/Time: Monday, April 17, 2017 03:40 - CONCLUSION: Mild left effusion and possible accompanying atelectasis or consolidation at the left base Angelo Manzo MD Thoracentesis 04/13/17 1054 Signed Impressions: Service Date/Time: Thursday, April 13, 2017 15:26 - CONCLUSION: Uncomplicated CT-guided right thoracentesis. Candido Mendoza Jr., MD Chest CT 04/12/17 1558 Signed Impressions: Service Date/Time: March 17:51 - CONCLUSION: 1. Slight increase in size of bilateral effusions and basilar atelectasis, left greater than right compared with February 27. Tracheostomy in good position. Trace Holloway MD Renal Ultrasound 04/02/17 0000 Signed Impressions: Service Date/Time: Sunday, April 02, 2017 16:59 - CONCLUSION: Limited exam with the left kidney being unable to be evaluated in the bladder not distended. There do appear to be multiple shadowing stones at the right kidney without hydronephrosis. Angelo Manzo MD Wrist X-Ray 03/27/17 0000 Signed Impressions: Service Date/Time: Monday, March 27, 2017 13:21 - CONCLUSION: 1. No acute fracture is identified. A portion of the previously documented distal ulna fracture remains visualized. 2. 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 Angelo Allen MD Aortography 02/28/17 0000 Signed Impressions: Service Date/Time: Tuesday, February 28, 2017 08:01 - CONCLUSION: 1. Active hemorrhage from distal right lateral sacral and iliolumbar branches successfully coil and Gelfoam embolized, as above. Juan Bhakta MD Abdomen/Pelvis CT 02/28/17 0000 Signed Impressions: Service Date/Time: Tuesday, February 28, 2017 06:51 - CONCLUSION: 1. The right retroperitoneal hematoma has increased in size, as above. There are 2 serpiginous arterially enhancing structures visualized, one in the right psoas muscle and another extending into the hematoma at the right iliac fossa. These could represent sites of continued active bleeding. 2. Stable moderate size left and small right pleural effusion with associated compressive atelectasis. 3. Stable small volume of free fluid in the abdomen and pelvis. There is also anasarca. The findings concerning the retroperitoneal hematoma were discussed with Dr. Aguiar via telephone at approximately 7: 10 AM on 02/28/2017. Angelo Allen MD Abdomen X-Ray 02/26/17 Signed Impressions: Service Date/Time: Sunday, February 26, 2017 14:52 - CONCLUSION: 1. Nonobstructive bowel gas pattern. Juan Bhakta MD Upper Extremity Ultrasound 02/10/17 0000 Signed Impressions: Service Date/Time: Friday, February 10, 2017 18:46 - CONCLUSION: Occlusive thrombus in the cephalic and basilic veins. Benjamin Person MD Lung Scan-V Nuclear Medicine 02/10/17 0000 Signed Impressions: Service Date/Time: Friday, February 10, 2017 22:17 - CONCLUSION: Low probability pulmonary embolism. Candido Patton MD Head CT 02/10/17 0000 Signed Impressions: Service Date/Time: Friday, February 10, 2017 23:51 - CONCLUSION: Negative noncontrast CT brain. Candido Patton MD Lumbar Puncture Fluoroscopy 02/01/17 0000 Signed Impressions: Service Date/Time: January 09:35 - CONCLUSION: Uncomplicated fluoroscopically guided lumbar puncture. CSF was clear. Nabeel Peralta MD Head Magnetic Resonance Angiography 01/27/17 0000 Signed Impressions: Service Date/Time: Friday, January 27, 2017 10:33 - CONCLUSION: No intracranial vascular abnormality is identified. There is no aneurysm visualized. Angelo Allen MD IVC Filter Placement X-Ray 01/25/17 0000 Signed Impressions: Service Date/Time: January 10:29 - CONCLUSION: Uncomplicated inferior vena cava filter placement as above. Yung Fowler MD Thoracic Spine MRI 01/24/17 0000 Signed Impressions: Service Date/Time: Tuesday, January 24, 2017 22:29 - CONCLUSION: 1. Mild degenerative spondylosis most prominently at T11-L1 with slight effacement of the anterior thecal sac and left lateral recess. No significant neural foraminal stenosis. 2. No acute fracture. Juan Bhakta MD Lumbar Spine MRI 01/23/17 0000 Signed Impressions: Service Date/Time: Monday, January 23, 2017 17:01 - CONCLUSION: 1. At L4-5 is a broad-based disc protrusion with severe central canal and lateral recess stenosis and flattening of the exiting right L4 nerve root. 2. L5-S1 there is a disc protrusion and moderate stenosis with flattening of the exiting L5 nerve roots bilaterally. 3. At L3-4 there is a moderate to severe central stenosis and lateral recess stenosis with mild foraminal stenosis. 4. No acute fracture or spondylolisthesis. Trace Holloway MD Lower Extremity Ultrasound 01/23/17 0000 Signed Impressions: Service Date/Time: Monday, January 23, 2017 09:53 - CONCLUSION: Bilateral focal lower extremity DVT involving the posterior tibial veins. Angelo Garrido MD Cervical Spine MRI 01/23/17 0000 Signed Impressions: Service Date/Time: Monday, January 23, 2017 17:01 - CONCLUSION: 1. Multilevel cervical spine degenerative changes as above. 2. Mild degrees of spinal stenosis at C3/C4-C6/C7. No cord compression or cord signal abnormality. 3. Age indeterminate left paracentral/foraminal disc protrusion at C6/C7. 4. Multilevel foraminal stenosis, most severe on the left at C6/C7. Please see individual levels above. 5. No fracture or subluxation of the cervical spine. Angelo Garrido MD Brain MRI 01/23/17 0000 Signed Impressions: Service Date/Time: Monday, January 23, 2017 17:01 - CONCLUSION: 1. No acute stroke or other acute intracranial abnormality demonstrated. 2. Moderate severity chronic white matter changes, nonspecific but most likely related to chronic small vessel disease. 3. Few scattered tiny lacunar infarcts of the brainstem. 4. Given the findings are not entirely specific, clinical evaluation for possible multiple sclerosis recommended. Angelo Garrido MD Knee X-Ray 01/22/[id number] Signed Impressions: Service Date/Time: Sunday, January 22, 2017 21:17 - CONCLUSION: 1. Evidence of moderate to large joint effusion. 2. No acute fracture or malalignment. 3. Mild 3 compartment osteoarthritic change. Benjamin Person MD Hip and Pelvis X-Ray [id number]/22/[id number] Signed Impressions: Service Date/Time: Sunday, January 22, 2017 21:10 - CONCLUSION: 1. Mild to moderate degenerative change of both hips with no acute fracture or malalignment. There is flattening and remodeling of the right humeral head. Benjamin Person MD Physical Exam GENERAL: Awake and alert, on T-piece, not in distress SKIN: Cool and dry. No generalized rash. Edematous in extremities EYES: [place] conjunctiva. No petechia or hemorrhage. EARS, NOSE AND THROAT: Nose without bleeding or purulent nasal discharge. Dry oral mucosa NECK: Trach site ok. CARDIOVASCULAR: Regular rate and rhythm. Soft heart sounds. No murmurs RESPIRATORY: Coarse BS bilaterally, decreased at bases. ABDOMEN: Soft, not tender, distended, PEG site ok. No guarding rectal tube in place with small amount of liquid stool EXTREMITIES: No clubbing, cyanosis. Edema feet better; edema hands better, still present NEUROLOGICAL: awake and following commands PSYCHIATRIC: Calm and cooperative LINE: Lines with no evidence of infection Assessment & Plan Remarks IMPRESSION New Sepsis (fever and leucocytosis), temps up again x 1, and WBC still elevated Aspiration Pneumonia in health care setting. Mucus plugs with atelectasis. - completed Zerbaxa; on Tobra nebs Leucocytosis, persistent ESBL in urine in recent past. 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 PNA, ?plugging/atelctasis - MDR, I to Zerbaxa, has been tolerating T-piece - likely effusion adding to his respiratory problems, on top of his plugging /secretions Large R retroperitoneal bleed, S/P multiple transfusions and S/P coiling of bleeders Anemia, due to bleed, retroperitoneal MSSA sepsis, due to suppurative thrombophlebitis LUE, S/P I and D and excision of portion of cephalic vein - S/P Rx Respiratory failure, has had several intubations - reintubated again 02/28, extubated 03/11 - reintubated again - S/P trach 03/14 Recent Rx 7 days high dose solumedrol for transverse myelitis Wu LE DVT has IVC filter placed 01/25 - ?hypercoagulable state Chronic kidney disease, worsening creatinine - shock and compression of ureter by hematoma Known DM, HTN Diarrhea, ? C.diff - invalid result, needs to be repeated RECOMMENDATION Follow C/S Stop Merem Continue Tobra nebs, will give 14 days Also on Diflucan Continue oral Vanco for now Repeat stool C diff in few days Follow temps Follow CBC Monitor progress Irene Edwards MD Apr 23, 2017 10:42
[2017-04-23] MEDS ORDERED: BUMETANIDE INJ 1 MG/4 ML VIAL IV PUSH ONE (10:45)
[2017-04-23] MEDS: INSULIN ASPART SUPPLEMENTAL SCALE SQ SCH ×4 (11:26→21:00)
[2017-04-23] MEDS: INSULIN DETEMIR 100 UNITS/ML VIAL SQ SCH ×2 (11:26→21:00)
[2017-04-23] MEDS: LANSOPRAZOLE SOLUTAB 30 MG TAB NG SCH ×2 (11:26→21:00)
[2017-04-23] MEDS: ALPRAZolam 0.25 MG TAB PO PRN ×2 (11:27→17:49)
[2017-04-23] MEDS: TAMSULOSIN HCL 0.4 MG CAP PO SCH ×2 (11:27→22:44)
[2017-04-23] MEDS: CHOLESTYRAMINE 4 GM PACKET G-TUBE SCH ×2 (11:27→22:45)
[2017-04-23] MEDS: QUEtiapine FUMARATE 25 MG TAB PO SCH (11:27)
--- NOTE | 2017-04-23 12:13 | HHI.HCPN ---
Reason for visit a. To assist with evaluation and management of symptoms including: shortness of breath, pain, debility b. To assist medical decision maker(s) with: better understanding of current medical conditions; weighing benefits/burdens of medical treatment options; making medical treatment decisions. Subjective/Interval History Interim report: 04/20/17-Patient was hypotensive over the weekend and required Levophed infusion and has been since discontinued. 04/20/17- Urine culture revealed yeast species- Patient started on Fluconazole 04/21/17-Tachycardic - Received 500ml Normal saline bolus. Patient seen in his room, in bed. Patient awake and oriented to self with some confusion. Patient said he was going somewhere today. TF infusing at goal rate.He states that he has not eaten anything since yesterday at 8:00a.m. Patient communicates by mouthing words. Patient complaining of pain to bilateral lower extremities and back. Noted edema to BLE. Patient on oxycodone and hydrocortisone. Patient is afebrile. SBP low 100s-120s. Patient remains on Tpierce 35% saturating in the high 90s. Family/friend interactions No family at bedside. . Advance Directives Living Will: Never completed Health Care Surrogate: Never completed Durable Power of Window Unit Air Conditioning Mechanic: Never completed Advance Directive Specifics Health Care Surrogate(s): Healthcare proxys- Son-Davie Kerr - ; Son-Arnel Kerr- -cell -home Telephone call to Davie Kerr, patient`s son with no response. Telephone conversation with patient`s son Arnel Kerr via telephone- called home telephone. Updated him on patient`s medical status. Discussed his role as patient`s health care proxy and he states that since Davie lives here closer to patient he is alright with Davie making medical decisions for their father and that he trusts that Davie will make the right decisions. When asked if he wanted to opt out of medical decision making, he stated that he may have to do that and allow Davie to make medical decisions and hopes that Davie will keep him informed. Explained to Arnel that his father is critically ill. Discussed code status, and explained to him that Davie wanted patient to be a full code. Again, Arnel stated that he trusts whatever decision his brother has and is making for their father. Telephone conversation with Deb patient` s sister, Updated her on patient`s current medical status and planned procedures. . Documented care wishes: No known documented care wishes have been completed. . Objective Vital Signs Date Time Temp Pulse Resp B/P (MAP) Pulse Ox O2 Delivery O2 Flow Rate FiO2 04/23/17 08:19 100 T-piece 6.00 35 04/23/17 04:00 129 04/23/17 04:00 98.0 129 30 105/68 (80) 98 04/23/17 00:00 98.3 118 26 127/71 (89) 99 04/23/17 00:00 118 04/22/17 20:00 129 04/22/17 20:00 98.7 129 31 119/66 (83) 97 04/22/17 19:58 98 T-piece 5.00 35 04/22/17 19:00 97 T-Piece 35 04/22/17 16:00 99.5 131 21 101/51 (68) 98 04/22/17 16:00 131 04/22/17 15:23 27 04/22/17 12:00 98.8 130 21 112/51 (71) 95 04/22/17 12:00 130 Intake & Output 04/23/17 04/23/17 07:00 19:00 Intake Total 2930 ml Output Total 1400 ml Balance 1530 ml Intake Oral 40 ml IV Total 1780 ml Tube Feeding 710 ml Other 400 ml Output Urine Total 1000 ml Stool Total 400 ml Physical Exam CONSTITUTIONAL/GENERAL: This is an ill-looking patient, in bed c/o pain to bilateral lower extremities. TUBES/LINES/DRAINS: PEG tube, #8Tracheostomy on T Bruce, PIVs, FC SKIN: No jaundice. Ecchymoses on upper extremities. Sacral pressure wound and L heel pressure injury per EMR. Wound to anterior neck - tracheostomy insertion area with a foam dressing. Not diaphoretic. HEAD: Atraumatic. Normocephalic. EYES: Pupils equal and round, slight reaction.No scleral icterus. No injection or drainage. Fundi not examined. ENT: Trached. Nose without bleeding or purulent drainage. Moist oral mucosa. NECK: Trachea midline. #8 Tracheostomy midline- currently on TPierce 35% . CARDIOVASCULAR: Regular rate and rhythm without murmurs, gallops, or rubs. No JVD. RESPIRATORY/CHEST: Symmetrical, rhonchi and wheezy to auscultation. Small amount of dried secretions around trach . Breath sounds equal bilaterally. Patient is on TPierce 35% GASTROINTESTINAL: Abdomen soft, non-tender, nondistended. No guarding. Bowel sounds present. TF Nepro infusing @ 30ml/hr via PEG. Liquid stool GENITOURINARY: Without palpable bladder distension. Sloan catheter in with clear urine. MUSCULOSKELETAL: Gout tophi to fingers, knees, elbows and both ankles. Edema + 2 noted to all 4 extremities. NEUROLOGICAL: Trached. Patient awake, alert, oriented to self with some confusion. Communicates by mouthing words. Followed command with all 4 extremities. PSYCHIATRIC: No obvious anxiety/depression. no apparent hallucinations or other psychotic thought process. . Diagnostic Tests Laboratory Laboratory Tests Test 04/20/17 22:30 04/22/17 10:42 04/22/17 13:00 04/23/17 03:45 Urine Color LIGHT-YELLOW (YELLW/STRAW) Urine Turbidity HAZY (CLEAR) Urine pH 6.0 (5.0-8.5) Urine Specific Prince 1.009 (1.002-1.035) Urine Protein 30 mg/dL (NEG-TRACE) Urine Glucose (UA) NEG mg/dL (NEG) Urine Ketones NEG mg/dL (NEG) Urine Occult Blood MOD (NEG) Urine Nitrite NEG (NEG) Urine Bilirubin NEG (NEG) Urine Urobilinogen LESS THAN 2.0 MG/DL (LESS Urine Leukocyte Esterase LARGE (NEG) Urine RBC 3 /hpf (0-3) Urine WBC 84 /hpf (0-5) Urine WBC Clumps MOD (NONE) Urine Bacteria RARE /hpf (NONE) Urine Mucus FEW /lpf (OCC) Urine Yeast (Budding) MANY (NONE) Microscopic Urinalysis Comment CATH-CULTURE IND Stool C. difficile Toxin (PCR) INVALID (NEGATIVE) ERROR (NEGATIVE) Stl C. difficile Toxin Epiderm 027 INVALID (NEGATIVE) ERROR (NEGATIVE) White Blood Count 16.6 TH/MM3 (4.0-11.0) 21.3 TH/MM3 (4.0-11.0) Red Blood Count 3.08 MIL/MM3 (4.50-5.90) 2.86 MIL/MM3 (4.50-5.90) Hemoglobin 8.2 GM/DL (13.0-17.0) 7.9 GM/DL (13.0-17.0) Hematocrit 26.7 % (39.0-51.0) 25.1 % (39.0-51.0) Mean Corpuscular Volume 86.6 FL (80.0-100.0) 87.7 FL (80.0-100.0) Mean Corpuscular Hemoglobin 26.7 PG (27.0-34.0) 27.7 PG (27.0-34.0) Mean Corpuscular Hemoglobin Concent 30.8 % (32.0-36.0) 31.6 % (32.0-36.0) Red Cell Distribution Width 17.6 % (11.6-17.2) 17.5 % (11.6-17.2) Platelet Count 263 TH/MM3 (150-450) 262 TH/MM3 (150-450) Mean Platelet Volume 7.9 FL (7.0-11.0) 8.2 FL (7.0-11.0) Neutrophils (%) (Auto) 80.4 % (16.0-70.0) 80.8 % (16.0-70.0) Lymphocytes (%) (Auto) 6.5 % (9.0-44.0) 6.7 % (9.0-44.0) Monocytes (%) (Auto) 8.2 % (0.0-8.0) 6.9 % (0.0-8.0) Eosinophils (%) (Auto) 4.5 % (0.0-4.0) 5.3 % (0.0-4.0) Basophils (%) (Auto) 0.4 % (0.0-2.0) 0.3 % (0.0-2.0) Neutrophils # (Auto) 13.3 TH/MM3 (1.8-7.7) 17.2 TH/MM3 (1.8-7.7) Lymphocytes # (Auto) 1.1 TH/MM3 (1.0-4.8) 1.4 TH/MM3 (1.0-4.8) Monocytes # (Auto) 1.4 TH/MM3 (0-0.9) 1.5 TH/MM3 (0-0.9) Eosinophils # (Auto) 0.7 TH/MM3 (0-0.4) 1.1 TH/MM3 (0-0.4) Basophils # (Auto) 0.1 TH/MM3 (0-0.2) 0.1 TH/MM3 (0-0.2) CBC Comment AUTO DIFF AUTO DIFF Differential Total Cells Counted 100 100 Neutrophils % (Manual) 76 % (16-70) 70 % (16-70) Band Neutrophils % 3 % (0-6) Lymphocytes % 6 % (9-44) 10 % (9-44) Monocytes % 7 % (0-8) 9 % (0-8) Eosinophils % 6 % (0-4) 8 % (0-4) Neutrophils # (Manual) 13.4 TH/MM3 (1.8-7.7) 15.5 TH/MM3 (1.8-7.7) Metamyelocytes 2 % (0-1) Differential Comment FINAL DIFF MANUAL FINAL DIFF MANUAL Platelet Estimate NORMAL (NORMAL) NORMAL (NORMAL) Platelet Morphology Comment NORMAL (NORMAL) NORMAL (NORMAL) Tear Drop Cells 1+ (NORMAL) 1+ (NORMAL) Blood Urea Nitrogen 37 MG/DL (7-18) Creatinine 1.26 MG/DL (0.60-1.30) Random Glucose 132 MG/DL (74-106) Total Protein 5.4 GM/DL (6.4-8.2) Albumin 2.5 GM/DL (3.4-5.0) Calcium Level 8.7 MG/DL (8.5-10.1) Phosphorus Level 2.2 MG/DL (2.5-4.9) Magnesium Level 1.8 MG/DL (1.5-2.5) Alkaline Phosphatase 86 U/L (45-117) Aspartate Amino Transf (AST/SGOT) 22 U/L (15-37) Alanine Aminotransferase (ALT/SGPT) 9 U/L (12-78) Total Bilirubin 0.4 MG/DL (0.2-1.0) Sodium Level 143 MEQ/L (136-145) Potassium Level 5.0 MEQ/L (3.5-5.1) Chloride Level 114 MEQ/L (98-107) Carbon Dioxide Level 22.4 MEQ/L (21.0-32.0) Anion Gap 7 MEQ/L (5-15) Estimat Glomerular Filtration Rate 58 ML/MIN (>89) Myelocytes 3 % (0-0) Test 04/23/17 03:55 Blood Urea Nitrogen 34 MG/DL (7-18) Creatinine 1.17 MG/DL (0.60-1.30) Random Glucose 136 MG/DL (74-106) Total Protein 5.3 GM/DL (6.4-8.2) Albumin 2.2 GM/DL (3.4-5.0) Calcium Level 8.6 MG/DL (8.5-10.1) Alkaline Phosphatase 91 U/L (45-117) Aspartate Amino Transf (AST/SGOT) 22 U/L (15-37) Alanine Aminotransferase (ALT/SGPT) 7 U/L (12-78) Total Bilirubin 0.4 MG/DL (0.2-1.0) Sodium Level 143 MEQ/L (136-145) Potassium Level 4.8 MEQ/L (3.5-5.1) Chloride Level 113 MEQ/L (98-107) Carbon Dioxide Level 21.5 MEQ/L (21.0-32.0) Anion Gap 9 MEQ/L (5-15) Estimat Glomerular Filtration Rate 63 ML/MIN (>89) Result Diagram: 04/23/17 0345 04/23/17 0355 Microbiology Microbiology Date/Time Source Procedure Growth Status 04/20/17 15:19 Blood Peripheral Aerobic Blood Culture - Preliminary NO GROWTH IN 3 DAYS Resulted 04/20/17 15:19 Blood Peripheral Anaerobic Blood Culture - Preliminary NO GROWTH IN 3 DAYS Resulted 04/20/17 15:10 Blood Peripheral Aerobic Blood Culture - Preliminary NO GROWTH IN 3 DAYS Resulted 04/20/17 15:10 Blood Peripheral Anaerobic Blood Culture - Preliminary NO GROWTH IN 3 DAYS Resulted 04/20/17 22:30 Urine Catheterized Urine Urine Culture - Preliminary Yeast Species Resulted Procedures 01/25/2017- Retrievable IVC Filter placement 01/26/17-lumbar puncture with fluoroscopy-by interventional radiology 02/01/17- lumbar puncture fluoroscopy by interventional radiology 02/10/17- Endotracheal Intubation 02/10/17-left IJ central venous line placed 02/10/17-left femoral arterial line placed 02/11/17-Diagnostic and therapeutic bronchoscopy with bronchoalveolar lavage 02/11/17-Left upper extremity incision and debridement with excision of septic cephalic vein 02/13/17- Extubated 02/20/17- endotracheal intubation 02/20/17- Left subclavian central line placement 02/20/17-Right radial A-line placement 02/22/17-EGD/colonoscopy 02/28/17-right radial a line 02/28/17- Endotracheal intubation 02/28/17- right sided introducer catheter placement 02/28/17- Right IJ central line placement 02/28/17-Right chest tube placement 02/28/17- Embolization of inferior and superior sacral branches of right internal iliac artery 03/01/17- Hemodialysis access catheter 03/03/17-Right IJ central line placement 03/11/17-Extubated 03/13/17- Endotracheal intubation 03/14/17-Tracheostomy placement 03/15/17-PEG tube placement 04/13/17-thoracentesis right 600 cc removed 04/13/17-Tracheostomy up-sized to #8 Shiley . Assessment and Plan Disease Oriented Problem List: (1) Acute respiratory failure (2) Septic shock (3) Aspiration pneumonia (4) Acute renal failure (5) CKD (chronic kidney disease) stage 3, GFR 30-59 ml/min (6) Cardiomyopathy (7) DVT of lower extremity, bilateral (8) Thrombophlebitis arm (9) Diabetes mellitus (10) Gout (11) HTN (hypertension) (12) Hyperlipidemia Symptom Scale: (1) Shortness of breath 0-10 Scale: Unable to quantify Comment: Trach downsized to #6. Currently on Tpierce 35% . . (2) Debility 0-10 Scale: Unable to quantify Comment: Progressive. . (3) Pain 0-10 Scale: Unable to quantify Comment: History of falls, gout, arthritis, and currently bedbound. . Pertinent Non-Medical Issues Psychosocial:Patient was born and raised in [place], [place]. Patient was once for 20 years, now and has 2 adult sons. 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 He recently resigned due to failing health. Spiritual: No lutheran affiliation Legal: Per [place] statutes, in the absence of written advanced directives healthcare proxy decision making falls to the patient's 2 adult children. Patient's son (Davie) lives locally and wishes to participate in the role of the healthcare proxy decision maker. Palliative care has attempted to contact Arnel, has not call back. Patient`s sister Deb and patients brother verbalized that they have been updating Arnel on patient`s medical status. Ethical issues impacting care: No known ethical issues impacting care at this time. . Important Contacts Son-Davie Kerr - Son-Arnel Kerr- -cell -home Sister-Deb Curry . Prognosis Mr Kerr is a 62 years old male with a past medical history of hypertension, asthma, diabetes, hyperlipidemia, chronic kidney disease and gout. Patient presented to the ED on 01/22/17 complaining of bilateral knee and right arm pain after a mechanical fall 4 or 5 days prior to coming to the ER. Clinical course complicated with increased weakness leading to numerous diagnostic work ups for possible transverse myelitis, DVTs, retroperitoneal hematoma, aspiration pneumonia, intubation x 4 times, septic and hemorrhagic shock requiring support with pressors and multiple pRBC, FFP transfusions as well as platelets and cryo , renal failure requiring hemodialysis and sacral wound Given ongoing comorbidities, and prolonged hospitalization, patient remains at risk for further complications, deterioration and decline. Code Status: Full Code Plan PLAN: Legal decision maker: Patient is currently trached on TPierce and is not able to make any medical decisions for himself at this time. Patient has 2 adult sons Davie Kerr and Arnel Kerr. According to [place] Statute, his two aforementioned sons will serve as his health care proxys. Patient`s son Davie is acting in the role of HCP decision maker independently at this time given that he is the one who is reasonably available for consultation. Goals: 04/20/17 Remain Aggressive. SSI pending-Case management following case. No changes in goals. CODE STATUS: Full Code SYMPTOMS: * Shortness of breath: Multifactorial. Patient has had aspiration pneumonia. Patient has been intubated 4 times this hospitalization. Patient has a tracheostomy. On duonebs. Patient is also on Hydrocortisone 50mg q 6 hours. Residential Living Assistant following. Trach up-sized to #8. Now on Tpierce 35%- s/p CT guided thoracentesis, 600ml removed. Tobramycin nebs ordered. * Pain: Patient presented initially complaining of pain to right wrist and bilateral knees after a mechanical fall. Patient has a history of gout, arthritis, multiple falls and is currently bedbound. Patient on Oxycodone 5mg q 4 hours ATC. Patient on Hydrocortisone.Patient complaining of pain to bilateral lower extremities and back. * Debility: Progressive. Patient has had decline in his health for the past 4 months, including progressively increased weakness and difficulty ambulating and prolonged hospitalization with multiple setbacks. Patient remains at high risk for further physical deconditioning and debility. PT and OT following with patient. PT and OT following. Patient will benefit from getting OOB to a stretcher chair . PT, ST and OT following. Palliative care will continue to follow the patient during hospital course as condition evolves, to assist patient/decision-maker with understanding of their medical conditions, weighing benefits/burdens of treatment options, for clarification of goals of treatment. Additionally will assist with any symptoms of palliative concern. . Aftab Cartwright Apr 23, 2017 12:13
[2017-04-23] MEDS: LACTOBACILLUS ACIDOPHILUS TAB PO SCH ×3 (13:00→17:49)
[2017-04-23] MEDS ORDERED: FUROSEMIDE 40 MG/4 ML VIAL IV PUSH ONE (13:30)
[2017-04-23] MEDS: FLUCONAZOLE 100 MG TAB PO SCH (14:08)
[2017-04-23] MEDS: RESP: ALBUTEROL 2.5 MG/IPRATROPIUM 0.5 MG NEB (PRN) NEB (19:38)
[2017-04-23] MEDS: ATORVASTATIN 10 MG TAB PO SCH (22:44)
[2017-04-24] VITALS (9 sets, daily range): BP systolic 96–121; BP diastolic 60–70; PULSE 107–130; RESP 24–35; TEMP 97.9–98.9; O2SAT 96–100
[2017-04-24] MEDS: VANCOMYCIN 500 MG VIAL (FOR ORAL USE ONLY) PO SCH ×4 (02:36→21:37)
[2017-04-24] MEDS: oxyCODONE HCL ORAL CONC 5 MG/0.25 ML SYRINGE PO SCH ×6 (02:36→21:38)
[2017-04-24] MEDS: RESP: ALBUTEROL 2.5 MG/IPRATROPIUM 0.5 MG NEB (PRN) NEB ×2 (03:06→09:45)
[2017-04-24] MEDS: HYDROCORTISONE 10 MG TAB PO SCH ×2 (06:36→18:04)
[2017-04-24 07:00] LABS: AUTOMATED NEUTROPHIL # 15.3 TH/MM3 (1.8-7.7); BASOPHIL # 0.1 TH/MM3 (0-0.2); BASOPHIL % 0.5 % (0.0-2.0); EOSINOPHIL # 1.7 TH/MM3 (0-0.4); EOSINOPHIL % 8.3 % (0.0-4.0); LYMPH % 6.8 % (9.0-44.0); LYMPHOCYTE # 1.4 TH/MM3 (1.0-4.8); MEAN CELL VOLUME 86.9 FL (80.0-100.0); MEAN CORPUSCULAR HEMOGLOBIN 27.9 PG (27.0-34.0); MEAN CORPUSCULAR HGB CONC 32.2 % (32.0-36.0); MONO % 10.6 % (0.0-8.0); NEUT % 73.8 % (16.0-70.0); PLATELET COUNT 285 TH/MM3 (150-450); RED BLOOD COUNT 2.87 MIL/MM3 (4.50-5.90); RED CELL DISTRIBUTION WIDTH 17.5 % (11.6-17.2); WHITE BLOOD COUNT 20.7 TH/MM3 (4.0-11.0)
[2017-04-24 07:06] LABS: HEMO FLAGS AUTO DIFF
[2017-04-24 07:31] LABS: MAGNESIUM 1.6 MG/DL (1.5-2.5); POTASSIUM 4.8 MEQ/L (3.5-5.1)
[2017-04-24] MEDS: INSULIN ASPART SUPPLEMENTAL SCALE SQ SCH ×4 (08:00→21:00)
[2017-04-24] MEDS: CHLORHEXIDINE 0.12% (ORAL KIT) 15 ML CUP MT SCH ×2 (08:00→21:39)
[2017-04-24] MEDS: RESP: TOBRAMYCIN SULFATE 80 MG/2 ML NEB NEB SCH ×2 (08:14→20:24)
[2017-04-24 08:38] LABS: BANDS 2 % (0-6); EOSINOPHILS 4 % (0-4); METAMYELOCYTES 2 % (0-1); MYELOCYTES 2 % (0-0); NEUTROPHIL # MANUAL DIFF 18.6 TH/MM3 (1.8-7.7); POLYS (SEG NEUTROPHILS) 84 % (16-70); WBC DIFF SAMPLE 100
[2017-04-24 08:40] LABS: PLATELET ESTIMATE SMEAR NORMAL (NORMAL); PLATELET MORPHOLOGY NORMAL (NORMAL); SCAN/DIFF FINAL DIFF MANUAL
[2017-04-24] MEDS: COLLAGENASE OINT 30 GM TUBE TOPICAL SCH (09:00)
[2017-04-24] MEDS: SODIUM CHLORIDE 0.9% FLUSH 10 ML FLUSH IV FLUSH SCH ×3 (09:00→21:00)
[2017-04-24] MEDS: CHOLESTYRAMINE 4 GM PACKET G-TUBE SCH ×2 (09:37→21:37)
[2017-04-24] MEDS: LANSOPRAZOLE SOLUTAB 30 MG TAB NG SCH ×2 (09:37→21:37)
[2017-04-24] MEDS: QUEtiapine FUMARATE 25 MG TAB PO SCH (09:37)
[2017-04-24] MEDS: LACTOBACILLUS ACIDOPHILUS TAB PO SCH ×3 (09:37→18:04)
[2017-04-24] MEDS: INSULIN DETEMIR 100 UNITS/ML VIAL SQ SCH ×2 (09:37→21:00)
[2017-04-24] MEDS: TAMSULOSIN HCL 0.4 MG CAP PO SCH ×2 (09:37→21:37)
[2017-04-24] MEDS: ALPRAZolam 0.25 MG TAB PO PRN (10:28)
--- NOTE | 2017-04-24 11:35 | HHI.IDPN ---
Subjective Subjective Remarks Patient is a 62-year-old male, admitted to the hospital for evaluation of pain in his right wrist. He gave a history of falling about a week ago and apparently had immediate pain in the right wrist. He did not seek any medical attention initially because reportedly he was very busy. He eventually presented, and he was found to have a distal ulnar fracture on plain films. He also had some redness and swelling. Orthopedics saw the patient, and was being treated conservatively with the splint. During this hospitalization also he started complaining of generalized weakness but more so in his lower extremity than his upper extremity. He had swelling in both lower extremity which revealed evidence of DVT in the posterior tibial veins. Neurology had seen the patient and he underwent lumbar puncture which apparently was traumatic. Patient was therefore not given anticoagulation because of the traumatic LP, and he underwent placement of an IVC filter on January 25. Patient had another lumbar puncture on February 01. He was felt to have transverse myelitis, and he was given high-dose IV Solu-Medrol from January 27 to February 02. There was apparently some improvement in his weakness. The imaging studies done for his weakness showed some spinal stenosis, and neurosurgery was consult that and recommended that there was no surgical intervention to be done. Patient has been stabilizing, but last night apparently deteriorated, and he ended up getting intubated, and had significant hypotension requiring pressors. There was also an ultrasound done of his left upper extremity which showed DVT, and there was evidence of superior 2 thrombophlebitis. Vascular surgery was consult to it and he had IND on his left upper extremity. Patient has had some fevers since yesterday. 2 blood cultures were done yesterday and they're now reported as growing gram-positive cocci in [place] in clusters. He is currently sedated and intubated. He is on Levophed and vasopressin. A central line was placed as well as a femoral a line. He apparently had an IV in his left upper extremity and that was removed yesterday. Patient also has history of chronic kidney disease, and nephrology evaluated the patient. He was just being monitored for his renal insufficiency. Reconsulted 04/12 for low grade fever, leucocytosis, worsening CXR concern for new pneumonia. Notes reviewed Temps normal UC with yeast Stool less volume WBC remains elevated, lower today Remains on T-piece Antibiotics Current Medications Diflucan Oral Vanco Tobra nebs Medications (Trade) Dose Ordered Sig/Rosalia Route Start Time Stop Time Status Last Admin (NS Flush) 2 ml UNSCH PRN IV FLUSH 01/23/17 00:30 04/19/17 17:15 (NS Flush) 2 ml BID IV FLUSH 01/23/17 09:00 04/24/17 09:00 (Zofran Inj) 4 mg Q6H PRN IVP 01/23/17 00:30 02/26/17 17:23 (Narcan Inj) 0.4 mg UNSCH PRN IV 01/23/17 00:30 (Edna-Colace) 1 tab BID PO 01/23/17 09:00 Future Hold 02/24/17 20:31 (Dulcolax Supp) 10 mg DAILY PRN RECTAL 01/23/17 00:30 (Lipitor) 10 mg HS PO 01/24/17 21:00 Future hold 04/23/17 22:44 (Glucagon Inj) 1 mg UNSCH PRN OTHER 02/11/17 05:45 02/18/17 18:53 (Flomax) 0.4 mg Q12HR PO 02/17/17 15:00 Future hold 04/24/17 09:37 (Lovenox Inj) 100 mg Q12H SQ 02/18/17 12:00 Future Hold 02/26/17 16:20 (Lactinex) 1 tab TID PO 02/19/17 13:00 04/24/17 09:37 (D50w (Vial) Inj) 25 ml UNSCH PRN IV PUSH 02/20/17 12:45 03/27/17 13:20 (Questran Light Pkt) 4 gm Q12HR PO 02/25/17 21:00 Future Hold 02/27/17 10:32 (Aldactone) 25 mg DAILY PO 02/27/17 09:00 Future Hold (Peridex 0.12% Liq) 15 ml BID@08,20 MT 02/28/17 08:00 04/24/17 08:00 (NS Flush) UNSCH PRN IV FLUSH 03/01/17 13:00 (Heparin Inj) UNSCH PRN IV FLUSH 03/01/17 13:00 (NS Flush) DAILY IV FLUSH 03/04/17 09:00 04/22/17 08:54 (NS Flush) UNSCH PRN IV FLUSH 03/03/17 18:45 (Prevacid Odt) 30 mg BID NG 03/07/17 21:00 04/24/17 09:37 (Tylenol 650 Mg/ 20 ml Liq) 650 mg Q6H PRN PO 03/09/17 10:15 04/19/17 21:02 (Tenormin) 25 mg Q12HR PO 03/12/17 10:00 Future Hold 04/18/17 10:09 (Epogen Inj) 10,000 units UNSCH PRN IV PUSH 03/17/17 11:30 03/22/17 10:52 (Nitroglycerin 2% Oint) 2 inch Q6H PRN TOPICAL 03/23/17 14:00 03/29/17 01:20 (Norvasc) 10 mg DAILY PO 03/28/17 09:00 Future Hold 04/19/17 08:16 (Roxicodone Intensol Liq) 5 mg Q4H PO 04/01/17 18:00 04/24/17 10:29 (NovoLOG SUPPLEMENTAL SCALE) 1 ACHS SLIDING SCALE SQ 04/02/17 12:00 04/23/17 11:26 (Levemir Inj) 10 units BID SQ 04/03/17 21:00 04/24/17 09:37 (NovoLOG INJ) 5 units TIDAC SQ 04/03/17 17:00 Future Hold 04/10/17 08:00 (Xanax) 0.125 mg Q6H PRN PO 04/03/17 22:30 04/24/17 10:28 (Pill Splitter) 1 ea UNSCH PRN OTHER 04/03/17 22:45 (Levsin Liq) 0.125 mg Q4H PRN G-TUBE 04/06/17 15:00 04/12/17 10:09 (Questran 4 Gm Pkt) 4 gm Q12HR G-TUBE 04/08/17 21:00 04/24/17 09:37 (SEROquel) 25 mg DAILY PO 04/09/17 09:00 04/24/17 09:37 (Santyl Oint) 1 applic DAILY TOPICAL 04/10/17 09:00 04/24/17 09:00 (Cortef) 10 mg Q12H PO 04/10/17 18:00 04/24/17 06:36 (Lasix Inj) 40 mg BID@09,18 IV PUSH 04/12/17 18:00 Future Hold 04/19/17 17:15 (Duoneb Neb) 1 ampule Q2HR NEB PRN NEB 04/12/17 17:00 04/24/17 09:45 (Tobramycin Neb) 80 mg Q12HR NEB NEB 04/16/17 09:15 04/30/17 23:00 04/24/17 08:14 (Diflucan) 100 mg Q24H PO 04/20/17 15:00 04/23/17 14:08 (VANCOMYCIN for oral use only) 125 mg Q6H PO 04/21/17 21:00 04/24/17 09:37 (Lopressor Inj) 2.5 mg Q6H PRN IV PUSH 04/23/17 01:15 04/23/17 09:36 Lines PIV - Line sites with no e.o infection Past Medical History Reviewed Allergies: Coded Allergies: levofloxacin (Verified Allergy, Severe, 01/22/17) Objective . Vital Signs Date Time Temp Pulse Resp B/P (MAP) Pulse Ox O2 Delivery O2 Flow Rate FiO2 04/24/17 09:45 100 Trach Collar 6.00 28 04/24/17 08:14 97 T-piece 6.00 35 04/24/17 08:00 98.0 130 35 121/69 (86) 98 04/24/17 08:00 118 04/24/17 04:00 98.0 121 35 96/64 (75) 98 04/24/17 04:00 118 04/24/17 00:00 97.9 118 34 112/70 (84) 96 04/24/17 00:00 118 04/23/17 22:00 117 04/23/17 20:00 114 04/23/17 20:00 97.9 114 35 123/72 (89) 99 04/23/17 19:38 99 T-piece 35 04/23/17 19:00 99 T-Piece 35 04/23/17 16:00 129 04/23/17 16:00 99.2 117 28 130/68 (88) 96 04/23/17 12:00 129 04/23/17 12:00 99.2 125 22 123/70 (87) 98 . Laboratory Tests Test 04/23/17 03:45 04/24/17 06:09 White Blood Count 21.3 TH/MM3 20.7 TH/MM3 Red Blood Count 2.86 MIL/MM3 2.87 MIL/MM3 Hemoglobin 7.9 GM/DL 8.0 GM/DL Hematocrit 25.1 % 25.0 % Mean Corpuscular Volume 87.7 FL 86.9 FL Mean Corpuscular Hemoglobin 27.7 PG 27.9 PG Mean Corpuscular Hemoglobin Concent 31.6 % 32.2 % Red Cell Distribution Width 17.5 % 17.5 % Platelet Count 262 TH/MM3 285 TH/MM3 Mean Platelet Volume 8.2 FL 8.1 FL Neutrophils (%) (Auto) 80.8 % 73.8 % Lymphocytes (%) (Auto) 6.7 % 6.8 % Monocytes (%) (Auto) 6.9 % 10.6 % Eosinophils (%) (Auto) 5.3 % 8.3 % Basophils (%) (Auto) 0.3 % 0.5 % Neutrophils # (Auto) 17.2 TH/MM3 15.3 TH/MM3 Lymphocytes # (Auto) 1.4 TH/MM3 1.4 TH/MM3 Monocytes # (Auto) 1.5 TH/MM3 2.2 TH/MM3 Eosinophils # (Auto) 1.1 TH/MM3 1.7 TH/MM3 Basophils # (Auto) 0.1 TH/MM3 0.1 TH/MM3 CBC Comment AUTO DIFF AUTO DIFF Differential Total Cells Counted 100 100 Neutrophils % (Manual) 70 % 84 % Lymphocytes % 10 % 3 % Monocytes % 9 % 3 % Eosinophils % 8 % 4 % Neutrophils # (Manual) 15.5 TH/MM3 18.6 TH/MM3 Myelocytes 3 % 2 % Differential Comment FINAL DIFF MANUAL FINAL DIFF MANUAL Platelet Estimate NORMAL NORMAL Platelet Morphology Comment NORMAL NORMAL Tear Drop Cells 1+ Band Neutrophils % 2 % Metamyelocytes 2 % Laboratory Tests Test 04/23/17 03:55 04/24/17 05:42 Blood Urea Nitrogen 34 MG/DL 34 MG/DL Creatinine 1.17 MG/DL 1.13 MG/DL Random Glucose 136 MG/DL 122 MG/DL Total Protein 5.3 GM/DL Albumin 2.2 GM/DL Calcium Level 8.6 MG/DL 8.9 MG/DL Alkaline Phosphatase 91 U/L Aspartate Amino Transf (AST/SGOT) 22 U/L Alanine Aminotransferase (ALT/SGPT) 7 U/L Total Bilirubin 0.4 MG/DL Sodium Level 143 MEQ/L 144 MEQ/L Potassium Level 4.8 MEQ/L 4.8 MEQ/L Chloride Level 113 MEQ/L 114 MEQ/L Carbon Dioxide Level 21.5 MEQ/L 21.0 MEQ/L Anion Gap 9 MEQ/L 9 MEQ/L Estimat Glomerular Filtration Rate 63 ML/MIN 66 ML/MIN Phosphorus Level 2.5 MG/DL Magnesium Level 1.6 MG/DL Imaging Last Impressions Chest X-Ray 04/17/17 0000 Signed Impressions: Service Date/Time: Monday, April 17, 2017 03:40 - CONCLUSION: Mild left effusion and possible accompanying atelectasis or consolidation at the left base Angelo Manzo MD Thoracentesis 04/13/17 1054 Signed Impressions: Service Date/Time: Thursday, April 13, 2017 15:26 - CONCLUSION: Uncomplicated CT-guided right thoracentesis. Candido Mendoza Jr., MD Chest CT 04/12/17 1558 Signed Impressions: Service Date/Time: March 17:51 - CONCLUSION: 1. Slight increase in size of bilateral effusions and basilar atelectasis, left greater than right compared with February 27. Tracheostomy in good position. Trace Holloway MD Renal Ultrasound 04/02/17 0000 Signed Impressions: Service Date/Time: Sunday, April 02, 2017 16:59 - CONCLUSION: Limited exam with the left kidney being unable to be evaluated in the bladder not distended. There do appear to be multiple shadowing stones at the right kidney without hydronephrosis. Angelo Manzo MD Wrist X-Ray 03/27/17 0000 Signed Impressions: Service Date/Time: Monday, March 27, 2017 13:21 - CONCLUSION: 1. No acute fracture is identified. A portion of the previously documented distal ulna fracture remains visualized. 2. 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 Angelo Allen MD Aortography 02/28/17 0000 Signed Impressions: Service Date/Time: Tuesday, February 28, 2017 08:01 - CONCLUSION: 1. Active hemorrhage from distal right lateral sacral and iliolumbar branches successfully coil and Gelfoam embolized, as above. Juan Bhakta MD Abdomen/Pelvis CT 02/28/17 0000 Signed Impressions: Service Date/Time: Tuesday, February 28, 2017 06:51 - CONCLUSION: 1. The right retroperitoneal hematoma has increased in size, as above. There are 2 serpiginous arterially enhancing structures visualized, one in the right psoas muscle and another extending into the hematoma at the right iliac fossa. These could represent sites of continued active bleeding. 2. Stable moderate size left and small right pleural effusion with associated compressive atelectasis. 3. Stable small volume of free fluid in the abdomen and pelvis. There is also anasarca. The findings concerning the retroperitoneal hematoma were discussed with Dr. Aguiar via telephone at approximately 7: 10 AM on 02/28/2017. Angelo Allen MD Abdomen X-Ray 02/26/17 0000 Signed Impressions: Service Date/Time: Sunday, February 26, 2017 14:52 - CONCLUSION: 1. Nonobstructive bowel gas pattern. Juan Bhakta MD Upper Extremity Ultrasound 02/10/17 0000 Signed Impressions: Service Date/Time: Friday, February 10, 2017 18:46 - CONCLUSION: Occlusive thrombus in the cephalic and basilic veins. Benjamin Person MD Lung Scan- Nuclear Medicine 02/10/17 0000 Signed Impressions: Service Date/Time: Friday, February 10, 2017 22:17 - CONCLUSION: Low probability pulmonary embolism. Candido Patton MD Head CT 02/10/17 0000 Signed Impressions: Service Date/Time: Friday, February 10, 2017 23:51 - CONCLUSION: Negative noncontrast CT brain. Candido Patton MD Lumbar Puncture Fluoroscopy 02/01/17 0000 Signed Impressions: Service Date/Time: January 09:35 - CONCLUSION: Uncomplicated fluoroscopically guided lumbar puncture. CSF was clear. Nabeel Peralta MD Head Magnetic Resonance Angiography 01/27/17 0000 Signed Impressions: Service Date/Time: Friday, January 27, 2017 10:33 - CONCLUSION: No intracranial vascular abnormality is identified. There is no aneurysm visualized. Angelo Allen MD IVC Filter Placement X-Ray 01/25/17 0000 Signed Impressions: Service Date/Time: January 10:29 - CONCLUSION: Uncomplicated inferior vena cava filter placement as above. Yung Fowler MD Thoracic Spine MRI 01/24/17 Signed Impressions: Service Date/Time: Tuesday, January 24, 2017 22:29 - CONCLUSION: 1. Mild degenerative spondylosis most prominently at T11-L1 with slight effacement of the anterior thecal sac and left lateral recess. No significant neural foraminal stenosis. 2. No acute fracture. Juan Bhakta MD Lumbar Spine MRI 01/23/17 Signed Impressions: Service Date/Time: Monday, January 23, 2017 17:01 - CONCLUSION: 1. At L4-5 is a broad-based disc protrusion with severe central canal and lateral recess stenosis and flattening of the exiting right L4 nerve root. 2. L5-S1 there is a disc protrusion and moderate stenosis with flattening of the exiting L5 nerve roots bilaterally. 3. At L3-4 there is a moderate to severe central stenosis and lateral recess stenosis with mild foraminal stenosis. 4. No acute fracture or spondylolisthesis. Trace Holloway MD Lower Extremity Ultrasound 01/23/17 Signed Impressions: Service Date/Time: Monday, January 23, 2017 09:53 - CONCLUSION: Bilateral focal lower extremity DVT involving the posterior tibial veins. Angelo Garrido MD Cervical Spine MRI 01/23/17 Signed Impressions: Service Date/Time: Monday, January 23, 2017 17:01 - CONCLUSION: 1. Multilevel cervical spine degenerative changes as above. 2. Mild degrees of spinal stenosis at C3/C4-C6/C7. No cord compression or cord signal abnormality. 3. Age indeterminate left paracentral/foraminal disc protrusion at C6/C7. 4. Multilevel foraminal stenosis, most severe on the left at C6/C7. Please see individual levels above. 5. No fracture or subluxation of the cervical spine. Angelo Garrido MD Brain MRI 01/23/17 Signed Impressions: Service Date/Time: Monday, January 23, 2017 17:01 - CONCLUSION: 1. No acute stroke or other acute intracranial abnormality demonstrated. 2. Moderate severity chronic white matter changes, nonspecific but most likely related to chronic small vessel disease. 3. Few scattered tiny lacunar infarcts of the brainstem. 4. Given the findings are not entirely specific, clinical evaluation for possible multiple sclerosis recommended. Angelo Garrido MD Knee X-Ray 01/22/[id number] Signed Impressions: Service Date/Time: Sunday, January 22, 2017 21:17 - CONCLUSION: 1. Evidence of moderate to large joint effusion. 2. No acute fracture or malalignment. 3. Mild 3 compartment osteoarthritic change. Benjamin Person MD Hip and Pelvis X-Ray [id number]/22/[id number] Signed Impressions: Service Date/Time: Sunday, January 22, 2017 21:10 - CONCLUSION: 1. Mild to moderate degenerative change of both hips with no acute fracture or malalignment. There is flattening and remodeling of the right humeral head. Benjamin Person MD Physical Exam GENERAL: Awake and alert, on T-piece, not in distress SKIN: Cool and dry. No generalized rash. Edematous in extremities EYES: [place] conjunctiva. No petechia or hemorrhage. EARS, NOSE AND THROAT: Nose without bleeding or purulent nasal discharge. Dry oral mucosa NECK: Trach site ok. CARDIOVASCULAR: Regular rate and rhythm. Soft heart sounds. No murmurs RESPIRATORY: Coarse BS bilaterally, decreased at bases. ABDOMEN: Soft, not tender, distended, PEG site ok. No guarding rectal tube in place with small amount of liquid stool EXTREMITIES: No clubbing, cyanosis. Edema feet better; edema hands better, still present. Has wounds, pressure wounds on lateral R leg, with some dark blood NEUROLOGICAL: awake and following commands PSYCHIATRIC: Calm and cooperative LINE: Lines with no evidence of infection Assessment & Plan Remarks IMPRESSION New Sepsis (fever and leucocytosis), temps up again x 1, and WBC still elevated - temps down Aspiration Pneumonia in health care setting. Mucus plugs with atelectasis. - completed Zerbaxa; on Tobra nebs Leucocytosis, persistent ESBL in urine in recent past. 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 PNA, ?plugging/atelctasis - MDR, I to Zerbaxa, has been tolerating T-piece - likely effusion adding to his respiratory problems, on top of his plugging /secretions Large R retroperitoneal bleed, S/P multiple transfusions and S/P coiling of bleeders Anemia, due to bleed, retroperitoneal MSSA sepsis, due to suppurative thrombophlebitis LUE, S/P I and D and excision of portion of cephalic vein - S/P Rx Respiratory failure, has had several intubations - reintubated again 02/28, extubated 03/11 - reintubated again - S/P trach 03/14 Recent Rx 7 days high dose solumedrol for transverse myelitis Wu LE DVT has IVC filter placed 01/25 - ?hypercoagulable state Chronic kidney disease, worsening creatinine - shock and compression of ureter by hematoma Known DM, HTN Diarrhea, ? C.diff - invalid result, needs to be repeated RECOMMENDATION Continue Tobra nebs, will give 14 days Also on Diflucan, ccontinue Change palmer cath, repeat UA tomorrow Continue oral Vanco for now Repeat stool C diff in few days Follow temps Follow CBC Monitor progress D/W Irene Vogel MD Apr 24, 2017 11:35
--- NOTE | 2017-04-24 14:21 | HHI.CCPN ---
Subjective Remarks/Hospital Course Date of admission: 01/22 Date of critical care medicine consult 02/10 due to acute hypoxemic respiratory failure requiring emergent intubation 62-year-old male with a past medical history of hypertension, hyperlipidemia, diabetes mellitus, gout, uric acid kidney stones, kidney disease of unknown stage who originally presented to [facility] emergency department on 01/22 after a fall in which he sustained a right distal ulna fracture. He had been experiencing a gradual primarily lower extremity weakness as well as upper extremity weakness that was progressive. Neurology consult was obtained. MRI revealed no acute stroke. He had multifocal white matter changes. Tiny lacunar infarcts of the brainstem. Lumbar MRI report states L4-L5 disc protrusion with cetnral canal stenosis. Dr. Blackwell evaluated and states no cord compression on MRI C/T spine and recommended nonoperative management. Symptoms were felt to be consistent with transverse myelitis and he underwent Solumedrol 250 mg IV q6 hours 01/27-02/02. He also was found to have occlusive thrombus in the bilateral posterior tibial veins. Heparin was being avoided because he had traumatic lumbar puncture on 01/26 and 02/01. IVC filter was placed 01/25. He was undergoing physical therapy, reportedly making some improvements with plan to eventually discharged home with his son (max assist standing, and bed to chair per PT note). Apparently he had some vomiting the evening of 02/09 and additional vomiting on 02/10. He had a fever 102.8 on 02/09. Last recorded bowel movement was 02/03. Tonight he had acute onset of severe hypoxemia and respiratory distress. [facility] called and he was brought emergently to [facility] where his sats were 64% on 100% nonrebreather with mean arterial pressure 44. He was emergently intubated, CVL and art line placed. He is in septic shock. SUBJ: 02/11: Patient remains intubated sedated, critically ill. FiO2 reduced to 80% after increasing PEEP to 12. In severe septic shock Levophed at 16 mcg/m, vasopressin at 0.04 international units. D/W vascular surgery Dr. Enciso. He performed bedside Left upper extremity incision and debridement and excision of septic cephalic vein. 02/12: Remains intubated sedated profoundly septic, in shock on vasopressin and 7 mcg/min Levophed. FiO2 has improved to 45%, WBC count remains elevated with 20 ,000 white count significant left shift. Slight improvement in creatinine 2.9 urine output 750 ml 24 hours. 2-D echo shows LV ejection fraction 20-25%, no vegetation reported. Blood cultures 4 staph aureus. Wound culture pending 02/13: Remains critically ill but stable to improving. WBC count is down to 16, creatinine improving to 2.36. Off all pressors. Urine output also improving. 1.5L in 24 hours 02/14: Extubated 02/13. Tolerating well. WBC now down to 12.8. Creat improving 2.3 to 2. UO 3.4L. remains off all pressors. Was started on Precedex yesterday night for agitation, currently on 0.5 g per KG per hour. Chest x-ray shows left more than right air space disease 02/20/17 Re consult: 62-year-old male who was originally admitted for lower extremity weakness and found to have what was thought to be possible transverse myelitis. His hospital course his included a healthcare associated pneumonia, septic thrombophlebitis, DVT. He was most recently in the hospital floor where he had significant nausea and vomiting and diarrhea. His C. difficile test was recently negative. However, he has experienced worsening acute on chronic renal failure, hypotension, tachycardia, and severe hypoxemia. He did have a bout of vomiting earlier today, and his hospitalist attending suspects that he may have aspirated. He arrives by rapid response to the ICU with a nonrebreather in place in severe respiratory distress with SPO2 of 85%. I emergently intubate the patient, see separate procedure note for details. At this point the patient was hypotensive and tachycardic. He does have a history of an EF of 20%, however clinically he appears in florid septic shock. I placed central line and arterial line started vasopressors and gentle IV fluid resuscitation with 1 L of LR. Patient today was empirically broadened to vancomycin and Zosyn from his oxacillin which was initially treating MSSA bacteremia. He is recultured. Critical-care medicine is consulted to evaluate and manage his worsening multiorgan system failure and decompensated septic shock 02/21: Patient remains intubated sedated. Becomes anxious tachypnea on sedation lightening. Chest x-ray shows mild left lower lobe infiltrate. WBC count is slightly improved today from 23.2 t0 21. C Diff negative. UO adequate, creat slightly worsening. 1.57 today 02/22: Remains intubated sedated tolerated CPAP yesterday, plan is for EGD/ Colonscopy. WBC count back to normal. UO adequate. Creat stable 02/23: Tolerating CPAP trials following commands. Will do a spontaneous breathing trials. Status post EGD colonoscopy yesterday -Gastritis, esophagitis. Diverticulosis and multiple polyps. Urine output adequate but creatinine increasing to 1.7 with patient requiring multiple straight catheterization. We'll reinsert Sloan. 02/24: Breathing comfortably 24 hours after extubation. Protects airway well. 02/25: Excoriate bottom, will place rectal FMS. Start pureed diet. 02/26: Afebrile. Complaining of nausea and vomiting this afternoon. Increased stool output. Continue potassium replacement today. 02/27: 10 PM overnight, acutely hypotensive. Received 3 units PRBCs. Antibiotic coverage broadened to piperacillin/tazobactam, cortisol and 1 dose of vancomycin. Oxacillin drip currently on hold. Symptomatically, patient continues to vague abdominal pain/nausea vomiting which is unchanged for the past several days. Lipase elevated yesterday. Lactic acid normal. Troponin normal. Urinary retention after removal of Sloan. Straight catheter 1300. Cc 02/28: New diagnosis large retroperitoneal hematoma. Received 10 PRBC, 14 FFP, 2 platelets, 1 cryo-, 6 g calcium chloride, 2 is magnesium sulfate and 4 mg Bumex. CTA abdomen revealed possible arterial bleeds iliac, lumbar. Patient is currently on norepinephrine and epinephrine drips and possible need right nephrostomy tube placement due to large hematoma compressing ureter. Intra-abdominal bladder pressures are currently 13 03/01: Afebrile. Received 25 g albumin and 1 unit PRBCs overnight. Intra- abdominal bladder pressures currently 19. Currently on 3 micrograms per minute of norepinephrine. Llxcr-ih-nikn 1 out of 4 on 4 mics grams per kilogram per minute of cisatracurium. 03/02: Slightly hypothermic overnight. Hemoglobin appears to have stabilized. Troponin bump overnight likely secondary to demand ischemia from hypotension. Hemodynamically stable off all vasopressors. 03/03: Received 1 PRBCs overnight. 3 units currently. Off all vasopressors. Likely rebleeding. Stool is dark. 03/04: Remains unstable. Ventilator dependent. 03/05: afebrile. hgb stable. 03/06: bumex drip started overnight. good uop after bumex initiated. still grossly volume overloaded. Cr downtrending. more awake with transition to propofol. still too volume overloaded to tolerate extubation. hgb stable. 03/07: Afebrile. Tolerating tube feeds at goal with Nepro. Positive BM. On low-dose fentanyl and propofol drips. Potassium currently being replaced. 03/08: Eyes will open on ventilator. Afebrile. Tolerating tube feeding. Failed PSV trial yesterday due to apnea. 03/09: Following commands. Tmax 101. Tolerating tube feeding. One hour PSV trial yesterday. Currently tolerating well so far today 1.5 hours 03/10: Low-grade temperatures. Tolerating PSV trial 10 hours yesterday. Currently at 5/5 at 35%. We'll probably attempt extubation a.m. after hemodialysis. 03/11: Extubated currently in 4 L nasal cannula. Thick secretions thick clear with cough. Currently afebrile. Tolerating diet previously. 03/12: Sleepy this morning but arouses. Following commands. Refusing diet at the present time. On 2 L nasal cannula. 03/13: Patient reintubated last night for worsening respiratory status. Currently sedated on mechanical ventilation. Became hypotensive following intubation and is on Levophed 20 mics per minute. 03/14: Sedated, orally intubated on mech vent at the time of my evaluation this AM, subsequently underwent perc trach placement. Remains on levophed for pressor support. Transfused 1 unit PRBCs today. Persisten 03/15: Trach site clean, dry. CXR with bilateral basilar infiltrates. 03/16: Pulmonary congestion persists. Clinical condition not improving. Prognosis becoming increasingly bleak. 03/17: Glucose intolerance worse. No improvement in neurological function. 03/18: Remains on mechanical ventilation via tracheostomy. Off pressors now. Neurologic status remains poor. 03/19: Drowsy, encephalopathic, arousable. On mechanical ventilation via tracheostomy. Levemir increased for hyperglycemia today. Remains off pressors 03/20: More awake, moves both upper extremities. On mechanical ventilation via tracheostomy. Daily C Pap trials ongoing. 03/21: Awake and alert. On mechanical ventilation via tracheostomy. Opens and closes eyes on command. 03/22: Awake and alert. Tolerated T PIECE for 7 hours yesterday. Dialyzed today. 03/23: Currently on T piece trial. Status post dialysis yesterday on 3 L. Awake and alert. Wants to eat. Subjective 03/24: Currently afebrile. Hemodialysis catheter discontinued yesterday from left IJ. Persistent leukocytosis noted. Potassium will be replaced. Furosemide 40 mg twice a day IV to 20 mg IV twice a day 03/25: WBC count unchanged. Patient on T piece with humidified air greater than 48 hours, tolerating it well. Reconsulted 04/12: The patient was transferred emergently from the floor/ [facility]. Patient was initially seen by air chief marshal Dr. Estrada, and the patient was noted to be tachypneic on T piece of 40%. ABGs were performed which showed a PaO2 of 60 on T piece of FiO2 of 40%. Chest x-ray was performed which showed loss of entire left hemidiaphragm seed analysis laboratory assistant consolidation in the left lower lobe. Concern for mucus plugging versus fluid. The patient was transferred emergently to [facility] placed on a ventilator CT of the chest is pending. Upon arrival in the room the patient is alert and oriented, mouthing words, nodding head to yes and no questions O2 sat is 100% but patient is currently on mechanical ventilation. Currently in no respiratory distress. 04/13: Tmax 99.8. The patient's oxygen requirements have decreased currently FiO2 35% with a PaO2 1 blood gas of 85, O2 saturation 100%. No respiratory distress noted. Patient underwent CT of the chest yesterday noted pleural effusions left greater than right, diagnostic/and therapeutic CT thoracentesis plan for this a.m.. 04/14: Patient underwent CT-guided thoracentesis of the right side with approximately 600 cc withdrawn. Today air chief marshal Dr. LABOY in and up size indwelling 6.0 Shiley to a 8.0 Shiley. Minimal bleeding noted around the site. X-ray improving. Patient started on CPAP trials today, as well as tube feeds were initiated. 04/15: Placed on T piece this morning via tracheostomy. Appears to be tolerating it. Laying in bed not in any acute distress. 04/16: Awake and alert. Tolerating T piece. Tolerating PEG feeds. 04/17: Awake and alert. Tolerating T piece. Tolerating tube feeds via PEG 04/18: Awake and alert. Tolerating TPs. Tolerating tube feeds. Passed swallow eval 04/19: Awake and alert. Remains on T piece. Wants to move out of ICU as he indicates to me once again as he has for the past few days. Awaiting [facility]IC bed 04/20: Awake and alert. Remains on T piece. Developed hypotension last night for which she was transiently on Levophed however has been off since early this morning. ID adjusting antibiotics and working up for new sepsis. 04/21: Awake and alert. On T piece. Awaiting [facility]IC bed for the last few days. 04/22: Awake and alert. Remains on T piece. Received 500 cc normal saline this morning for tachycardia. 04/23 No events overnight. Remains on TP's with 35% FIO2. Afebrile. 04/24: Resting comfortably. Got short of breath with Passy-Rafy valve which was taken off. Objective Vital Signs Date Time Temp Pulse Resp B/P (MAP) Pulse Ox O2 Delivery O2 Flow Rate FiO2 04/24/17 12:00 98.0 110 24 98/60 (73) 98 04/24/17 09:45 Trach Collar 6.00 28 Intake and Output 04/24/17 04/24/17 04/25/17 08:00 16:00 00:00 Intake Total 1195 ml Output Total 1425 ml Balance -230 ml Result Diagram: 04/24/17 0609 04/24/17 0542 Imaging Last Impressions Chest X-Ray 04/17/17 0000 Signed Impressions: Service Date/Time: Monday, April 17, 2017 03:40 - CONCLUSION: Mild left effusion and possible accompanying atelectasis or consolidation at the left base Angelo Manzo MD Thoracentesis 04/13/17 1054 Signed Impressions: Service Date/Time: Thursday, April 13, 2017 15:26 - CONCLUSION: Uncomplicated CT-guided right thoracentesis. Candido Mendoza Jr., MD Chest CT 04/12/17 9358 Signed Impressions: Service Date/Time: March 17:51 - CONCLUSION: 1. Slight increase in size of bilateral effusions and basilar atelectasis, left greater than right compared with February 27. Tracheostomy in good position. Trace Holloway MD Renal Ultrasound 04/02/17 0000 Signed Impressions: Service Date/Time: Sunday, April 02, 2017 16:59 - CONCLUSION: Limited exam with the left kidney being unable to be evaluated in the bladder not distended. There do appear to be multiple shadowing stones at the right kidney without hydronephrosis. Angelo Manzo MD Wrist X-Ray 03/27/17 0000 Signed Impressions: Service Date/Time: Monday, March 27, 2017 13:21 - CONCLUSION: 1. No acute fracture is identified. A portion of the previously documented distal ulna fracture remains visualized. 2. 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 Angelo Allen MD Aortography 02/28/17 0000 Signed Impressions: Service Date/Time: Tuesday, February 28, 2017 08:01 - CONCLUSION: 1. Active hemorrhage from distal right lateral sacral and iliolumbar branches successfully coil and Gelfoam embolized, as above. Juan Bhakta MD Abdomen/Pelvis CT 02/28/17 0000 Signed Impressions: Service Date/Time: Tuesday, February 28, 2017 06:51 - CONCLUSION: 1. The right retroperitoneal hematoma has increased in size, as above. There are 2 serpiginous arterially enhancing structures visualized, one in the right psoas muscle and another extending into the hematoma at the right iliac fossa. These could represent sites of continued active bleeding. 2. Stable moderate size left and small right pleural effusion with associated compressive atelectasis. 3. Stable small volume of free fluid in the abdomen and pelvis. There is also anasarca. The findings concerning the retroperitoneal hematoma were discussed with Dr. Aguiar via telephone at approximately 7: 10 AM on 02/28/2017. Angelo Allen MD Abdomen X-Ray 02/26/17 0000 Signed Impressions: Service Date/Time: Sunday, February 26, 2017 14:52 - CONCLUSION: 1. Nonobstructive bowel gas pattern. Juan Bhakta MD Upper Extremity Ultrasound 02/10/17 0000 Signed Impressions: Service Date/Time: Friday, February 10, 2017 18:46 - CONCLUSION: Occlusive thrombus in the cephalic and basilic veins. Benjamin Person MD Lung Scan- Nuclear Medicine 02/10/17 0000 Signed Impressions: Service Date/Time: Friday, February 10, 2017 22:17 - CONCLUSION: Low probability pulmonary embolism. Candido Patton MD Head CT 02/10/17 0000 Signed Impressions: Service Date/Time: Friday, February 10, 2017 23:51 - CONCLUSION: Negative noncontrast CT brain. Candido Patton MD Lumbar Puncture Fluoroscopy 02/01/17 0000 Signed Impressions: Service Date/Time: January 09:35 - CONCLUSION: Uncomplicated fluoroscopically guided lumbar puncture. CSF was clear. Nabeel Peralta MD Head Magnetic Resonance Angiography 01/27/17 Signed Impressions: Service Date/Time: Friday, January 27, 2017 10:33 - CONCLUSION: No intracranial vascular abnormality is identified. There is no aneurysm visualized. Angelo Allen MD IVC Filter Placement X-Ray 01/25/17 Signed Impressions: Service Date/Time: January 10:29 - CONCLUSION: Uncomplicated inferior vena cava filter placement as above. Yung Fowler MD Thoracic Spine MRI 01/24/17 0000 Signed Impressions: Service Date/Time: Tuesday, January 24, 2017 22:29 - CONCLUSION: 1. Mild degenerative spondylosis most prominently at T11-L1 with slight effacement of the anterior thecal sac and left lateral recess. No significant neural foraminal stenosis. 2. No acute fracture. Juan Bhakta MD Lumbar Spine MRI 01/23/17 0000 Signed Impressions: Service Date/Time: Monday, January 23, 2017 17:01 - CONCLUSION: 1. At L4-5 is a broad-based disc protrusion with severe central canal and lateral recess stenosis and flattening of the exiting right L4 nerve root. 2. L5-S1 there is a disc protrusion and moderate stenosis with flattening of the exiting L5 nerve roots bilaterally. 3. At L3-4 there is a moderate to severe central stenosis and lateral recess stenosis with mild foraminal stenosis. 4. No acute fracture or spondylolisthesis. Trace Holloway MD Lower Extremity Ultrasound 01/23/17 0000 Signed Impressions: Service Date/Time: Monday, January 23, 2017 09:53 - CONCLUSION: Bilateral focal lower extremity DVT involving the posterior tibial veins. Angelo Garrido MD Cervical Spine MRI 01/23/17 0000 Signed Impressions: Service Date/Time: Monday, January 23, 2017 17:01 - CONCLUSION: 1. Multilevel cervical spine degenerative changes as above. 2. Mild degrees of spinal stenosis at C3/C4-C6/C7. No cord compression or cord signal abnormality. 3. Age indeterminate left paracentral/foraminal disc protrusion at C6/C7. 4. Multilevel foraminal stenosis, most severe on the left at C6/C7. Please see individual levels above. 5. No fracture or subluxation of the cervical spine. Angelo Garrido MD Brain MRI 01/23/17 0000 Signed Impressions: Service Date/Time: Monday, January 23, 2017 17:01 - CONCLUSION: 1. No acute stroke or other acute intracranial abnormality demonstrated. 2. Moderate severity chronic white matter changes, nonspecific but most likely related to chronic small vessel disease. 3. Few scattered tiny lacunar infarcts of the brainstem. 4. Given the findings are not entirely specific, clinical evaluation for possible multiple sclerosis recommended. Angelo Grarido MD Knee X-Ray [id number]/22/[id number] Signed Impressions: Service Date/Time: Sunday, January 22, 2017 21:17 - CONCLUSION: 1. Evidence of moderate to large joint effusion. 2. No acute fracture or malalignment. 3. Mild 3 compartment osteoarthritic change. Benjamin Person MD Hip and Pelvis X-Ray [id number]/[id number] Signed Impressions: Service Date/Time: Sunday, January 22, 2017 21:10 - CONCLUSION: 1. Mild to moderate degenerative change of both hips with no acute fracture or malalignment. There is flattening and remodeling of the right humeral head. Benjamin Person MD Objective Remarks GENERAL: 62-year-old male, resting in bed, on T piece, in no apparent distress nodding head to yes and no questions HEENT: Normocephalic. Atraumatic. Pupils equal, round, reactive. NECK: Tracheostomy in place, around trach site erythematous, yellowish drainage CHEST: On T piece, air entry decreased bilaterally . Scattered rhonchi, no wheezing CARDIOVASCULAR: S1-S2 regular, no gallop or murmur ABDOMEN distended. No rigidity. Umbilical hernia is reducible. No guarding. PEG tube in place : Positive scrotal edema Sloan in situ MUSCULOSKELETAL: Pulses 2+. 1+ bilateral upper and lower extremity edema. NEUROLOGICAL: Awake and alert, has spontaneous eye opening. Opens and closes eyes on command. Moves 4 limbs weakly to stimulation. Procedures 01/25/2017- Retrievable IVC Filter placement 01/26/17-lumbar puncture with fluoroscopy-by interventional radiology 02/01/17- lumbar puncture fluoroscopy by interventional radiology 02/10/17- Endotracheal Intubation 02/10/17-left IJ central venous line placed 02/10/17-left femoral arterial line placed 02/11/17-Diagnostic and therapeutic bronchoscopy with bronchoalveolar lavage 02/11/17-Left upper extremity incision and debridement with excision of septic cephalic vein 02/13/17- Extubated 02/20/17- endotracheal intubation 02/20/17- Left subclavian central line placement 02/20/17-Right radial A-line placement 02/22/17-EGD/colonoscopy 02/28/17-right radial a line 02/28/17- Endotracheal intubation 02/28/17- right sided introducer catheter placement 02/28/17- Right IJ central line placement 02/28/17-Right chest tube placement 02/28/17- Embolization of inferior and superior sacral branches of right internal iliac artery 03/01/17- Hemodialysis access catheter 03/03/17-Right IJ central line placement 03/11/17-Extubated 03/13/17- Endotracheal intubation 03/14/17-Tracheostomy placement, trach downsized to 6.0 Anni 03/30/17 03/15/17-PEG tube placement 04/11/17-CT Chest 04/13/17-thoracentesis right 600 cc removed Date of Insertion: Feb 20, 2017 Date of Insertion: Mar 03, 2017 Line: Central Venous Catheter Side: Right Location: Internal, Jugular A/P Problem List: (1) Septic shock ICD Code: A41.9 - Sepsis, unspecified organism; R65.21 - Severe sepsis with septic shock Status: Acute (2) Acute respiratory failure ICD Code: J96.00 - Acute respiratory failure, unspecified whether with hypoxia or hypercapnia Status: Acute (3) Thrombophlebitis arm ICD Code: I80.8 - Phlebitis and thrombophlebitis of other sites (4) Aspiration pneumonia ICD Code: J69.0 - Pneumonitis due to inhalation of food and vomit Status: Acute (5) Atelectasis of left lung ICD Code: J98.11 - Atelectasis Status: Acute (6) Quadriparesis ICD Code: G82.50 - Quadriplegia, unspecified Status: Acute (7) DVT (deep venous thrombosis) ICD Code: I82.409 - Acute embolism and thrombosis of unspecified deep veins of unspecified lower extremity (8) Altered mental status ICD Code: R41.82 - Altered mental status, unspecified Status: Acute (9) CKD (chronic kidney disease) stage 3, GFR 30-59 ml/min ICD Code: N18.3 - Chronic kidney disease, stage 3 (moderate) Status: Chronic (10) Acute renal failure ICD Code: N17.9 - Acute kidney failure, unspecified Status: Acute (11) Diabetes mellitus ICD Code: E11.9 - Type 2 diabetes mellitus without complications Status: Chronic (12) Distal end of ulna fracture, closed ICD Code: S52.609A - Unspecified fracture of lower end of unspecified ulna, initial encounter for closed fracture Status: Acute (13) Gout ICD Code: M10.9 - Gout, unspecified Status: Chronic Assessment and Plan Assessment: NEURO/PSYCH: Acute metabolic encephalopathy- persistent Quadriparesis secondary to suspected transverse myelitis Recurrent falls Suspected transverse myelitis. Received methylprednisolone 250 mg IV every 6 hours 01/27-02/02, started back on hydrocortisone 02/21/17, initially tapering to 50 mg IV every 8 hours starting received 1 dose at 2100 prior to becoming hypotensive. weaning hydrocortisone taper and stopped 03/09. Resumed hydrocortisone 50mg IV Q6hrly on 03/14 as patient became hypotensive following intubation on 03/13 requiring levophed. Continue Hydrocortisone 50 mg IV every 6 hours LP 01/26 and 02/01. CSF culture negative 01/26, 02/01 Oligoclonal bands negative. CSF/serum IgG index is not elevated. VDRL nonreactive. Cryptococcal antigen negative. Brain MRI 01/23 no acute stroke. Few scattered lacunar infarcts of the brainstem. Moderate chronic white matter changes. MRI cervical/thoracic spine- mild spinal stenosis C3/C4 to C6/C7. No cord compression. RPR negative Neurology has been following, Dr. Crenshaw. Repeat CT brain 02/10 - negative Continue PT/OT Continue oxycodone 10 mg every 4 hours scheduled RESP: Acute hypoxemic respiratory failure Healthcare associated pneumonia/Aspiration Pneumonia S/P Right-sided chest tube 02/28 Off mechanical ventilation, vent bundle, tolerating T piece. -On T piece >48 hours. Humidified room air Albuterol/ipratropium aerosols every 6 hours with albuterol aerosols every 2 hours prn VQ scan 02/10 low [address] PE. CT chest 02/10 - left lower lobe collapse and consolidation. CT chest 02/27 revealed right greater than left pleural effusions. Extubated 02/23. Intubated 02/28. Extubated 03/11, Reintubated on 03/13. Right-sided chest tube placement 02/28 sap senior developer, removed 03/05. Failed attempt to wean successfully due to volume overload and multiple organ failure. underwent perc tracheostomy 03/14. CT chest 04/12-slight increase and bilateral effusions left greater than right basilar atelectasis CXR 04/13-moderate pleural effusion left with consolidation of the left lung Pulmonology following Dr. Estrada - 04/13 CT guided thoracentesis scheduled emergently as discussed with Dr. Estrada - 600cc removed (right) 04/14-tracheostomy up sized to 8.0 Shiley by air chief marshal Dr. Estrada at bedside CV: Severe sepsis - resolved. Systolic heart failure likely chronic with ejection fraction 20-25% Hyperlipidemia History of hypertension Mild TR Sinus tachycardia Elevated troponin likely type II demand ischemia Monitor HR and BP keep MAP>65mmHg As needed Nitropaste, labetalol and hydralazine for hypertension Atorvastatin 10 mg by mouth daily for dyslipidemia. Troponin 0.[address]-T changes. 2-D echocardiogram 01/11 revealed EF 20-25%. Mild TR. Pulmonary arterial pressures were normal around 20 GI: Large right retroperitoneal hematoma Erosive esophagitis Adematous/hyperplastic colon polyps Severe acute protein calorie malnutrition Nausea/vomiting - resolved. Diarrhea Gastritis Diverticulosis Internal and external hemorrhoids Hiatal hernia Elevated lipase Continue tube feeds- on Glucerna 1.5 @65ml/hr 02/27 CT chest/abdomen and pelvis - 9.4 x 7.5 renal and 16 x 12 cm right psoas muscle hematoma. Fluid around liver and spleen. Right-sided nephrolithiasis CTA abdomen 02/28 - possible blushing around iliac/lumbar vessels Discussed with IR. s/p attempted embolization CT abdomen and pelvis 02/10 atrophic left kidney. Bilateral inguinal hernias fat- containing. Nonobstructing 12 mm right kidney stone repeat CT abd/pelvis did not show evidence of obstruction. patient clinically has been having diarrhea (c. diff negative 02/19). also with nausea/vomiting of unclear etiology. EGD/Colonoscopy-02/22/17 showed gastritis esophagitis, hiatal hernia, diverticulosis and multiple polyps in descending colon and sigmoid which were snared biopsied. 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 Recommended nephrostomy tube if obstruction Nephrology consulted, off hemodialysis. Making urine. ICU electrolyte replacement protocol Last IHD was 03/22 ID: Septic shock- resolved. Abscess and Suppurative thrombophlebitis left upper extremity MSSA bacteremia Klebsiella UTI ESBL positive Acute aspiration pneumonia/HCAP Previously treated with Bactrim, ertapenem, intermittent vancomycin, nafcillin Blood cultures 2, UA ESBL positive Klebsiella UTI Sputum 03/14 - Pseudomonas came back resistant to imipenem, Stenotrophomonas maltophilia Antibiotics per ID. on Tobra nebs, Merrem, PO Vanco and Diflucan, ID-Dr. Edwards. HEME: Acute blood loss anemia DVT, bilateral posterior tibial vein, IVC filter Septic thrombophlebitis with occlusive thrombus mid cephalic and basilic vein side Monitor CBC Received 10 PRBC, 14 FFP, 2 platelets, 1 cryo-02/28 Received 3 units PRBCs Ultrasound 01/23/17 - Bilateral lower extremity with occlusive posterior tibial vein DVTs. Heparin was initially started for DVT but was placed on hold due to LP with suspected traumatic tap. Currently holding full anticoagulation with enoxaparin 100 mg IV twice a day due to anemia as of 02/26 IVC filter was placed 01/25/17. Ultrasound LUE 02/10 occlusive thrombus mid cephalic vein, basilic vein.s. Transfuse 3 units PRBCs 02/27 Transfuse 2 units PRBCs 03/01. Transfused 1 unit PRBCs on 03/14 ENDO: Diabetes mellitus Hypoglycemia History of prior adrenal insufficiency with shock Gout EGD colonoscopy completed 02/22. gastritis and esophagitis, colon polyps On tape dose steroids- HC 10 mg by mouth every 12 hourly Accu-Cheks to maintain euglycemia Novulin R every 4 hours. Low Regimen Currently on insulin detemir 25 units twice a day for hyperglycemia MSK: Right distal ulna fracture. Recommended nonoperative management. PROPH: Lansoprazole 30 mg twice a day twice a day for stress ulcer prophylaxis. Has IVC filter. Therapeutic enoxaparin was placed on hold for retroperitoneal hematoma ACCESS: right IJ CVL placed 03/03-03/20. A left IJ hemodialysis catheter placed 03/01 - 03/23. Left femoral A line placed 03/14 - discontinued 03/19 Dispo: Discussed with CARD PLAYER at bedside Patient waiting for transfer out of ICU since 04/17. Consult placed to hospitalist service on 04/17. Hospitalist service to take over patient care when patient transferred out of ICU. Problem Qualifiers (1) Aspiration pneumonia: (2) DVT (deep venous thrombosis): Qualified Codes: I82.443 - Acute embolism and thrombosis of tibial vein, bilateral (3) Acute renal failure: Qualified Codes: N17.9 - Acute kidney failure, unspecified (4) Diabetes mellitus: (5) Gout: Devin Puente MD Apr 24, 2017 14:21
[2017-04-24] MEDS: FLUCONAZOLE 100 MG TAB PO SCH (15:00)
[2017-04-24 16:02] LABS: BACTERIA, URINE OCC /hpf; BLOOD, URINE SMALL (NEG); COMMENT (UR) CATH-CULTURE IND; CULTURE IF INDICATED CATH CULTURE IND; GLUCOSE,URINE NEG (NEG); KETONE, URINE NEG (NEG); MUCUS URINE FEW /lpf (OCC); NITRITE,URINE NEG (NEG); PH, URINE 5.5 (5.0-8.5); SQUAMOUS EPITHELIAL CELL URINE <1 /hpf (0-5); URINE COLOR YELLOW (YELLW/STRAW)
--- NOTE | 2017-04-24 17:21 | HHI.HCPN ---
Reason for visit a. To assist with evaluation and management of symptoms including: shortness of breath, pain, debility b. To assist medical decision maker(s) with: better understanding of current medical conditions; weighing benefits/burdens of medical treatment options; making medical treatment decisions. Subjective/Interval History Patient seen and examined in ICU. Patient in bed sleeping but easily arousable. Not communicating much today. Communicates by mouthing words. Patient complaining of back pain. Noted pitting edema to bilateral lower extremities. Patient is on scheduled Oxycodone 5 mg Q 4 hrs ATC and Hydrocortisone 10mg BID. Patient remains on Tpierce 28% with O2 saturation in the high 90s. Small amount of yellowish secretions around tracheostomy. Per bedside RN, patient did not tolerate Passy-maxime valve this morning. Patient only had it for an hour. Patient was tachypneic with RR in the mid 30s and anxious. Speech evaluation today , recommended mechanical soft diet with chopped meat and gravy and nectar thickened liquids with passy maxime valve. TF infusing at goal rate. Patient is afebrile. SBP mid 90s-120s. No family at bedside. Case discussed with bedside RN Jamee. Family/friend interactions No family at bedside. . Advance Directives Living Will: Never completed Health Care Surrogate: Never completed Durable Power of Post Acute Care Registered Nurse: Never completed Advance Directive Specifics Health Care Surrogate(s): Healthcare proxys- Son-Davie Kerr - ; Son-Arnel Kerr- -cell -home Telephone call to Davie Kerr, patient`s son with no response. Telephone conversation with patient`s son Arnel Kerr via telephone- called home telephone. Updated him on patient`s medical status. Discussed his role as patient`s health care proxy and he states that since Davie lives here closer to patient he is alright with Davie making medical decisions for their father and that he trusts that Davie will make the right decisions. When asked if he wanted to opt out of medical decision making, he stated that he may have to do that and allow Davie to make medical decisions and hopes that Davie will keep him informed. Explained to Arnel that his father is critically ill. Discussed code status, and explained to him that Davie wanted patient to be a full code. Again, Arnel stated that he trusts whatever decision his brother has and is making for their father. Telephone conversation with Deb patient` s sister, Updated her on patient`s current medical status and planned procedures. . Documented care wishes: No known documented care wishes have been completed. . Objective Vital Signs Date Time Temp Pulse Resp B/P (MAP) Pulse Ox O2 Delivery O2 Flow Rate FiO2 04/24/17 16:00 118 04/24/17 16:00 98.0 110 24 98/60 (73) 98 04/24/17 12:00 98.0 110 24 98/60 (73) 98 04/24/17 12:00 118 04/24/17 09:45 100 Trach Collar 6.00 28 04/24/17 08:14 97 T-piece 6.00 35 04/24/17 08:00 98.0 130 35 121/69 (86) 98 04/24/17 08:00 118 04/24/17 04:00 98.0 121 35 96/64 (75) 98 04/24/17 04:00 118 04/24/17 00:00 97.9 118 34 112/70 (84) 96 04/24/17 00:00 118 04/23/17 22:00 117 04/23/17 20:00 114 04/23/17 20:00 97.9 114 35 123/72 (89) 99 04/23/17 19:38 99 T-piece 35 04/23/17 19:00 99 T-Piece 35 Intake & Output 04/24/17 04/24/17 07:00 19:00 Intake Total 1195 ml Output Total 1425 ml Balance -230 ml Intake Oral 240 ml Tube Feeding 715 ml Other 240 ml Output Urine Total 1075 ml Stool Total 350 ml Physical Exam CONSTITUTIONAL/GENERAL: This is an ill-looking patient, in bed c/o back pain. TUBES/LINES/DRAINS: PEG tube, #8Tracheostomy on T Bruce, Carline, FC SKIN: No jaundice. Ecchymoses on upper extremities. Sacral pressure wound and L heel pressure injury per EMR. Wound to anterior neck - tracheostomy insertion area with a foam dressing. Not diaphoretic. HEAD: Atraumatic. Normocephalic. EYES: Pupils equal and round, slight reaction.No scleral icterus. No injection or drainage. Fundi not examined. ENT: Trached. Nose without bleeding or purulent drainage. Moist oral mucosa. NECK: Trachea midline. #8 Tracheostomy midline- currently on TPierce . CARDIOVASCULAR: Regular rate and rhythm without murmurs, gallops, or rubs. No JVD. RESPIRATORY/CHEST: Symmetrical, rhonchi and wheezy to auscultation. Small amount of yellow secretions around trach . Breath sounds equal bilaterally. Patient is on TPierce GASTROINTESTINAL: Abdomen soft, non-tender, nondistended. No guarding. Bowel sounds present. TF Nepro infusing @ 30ml/hr via PEG. Liquid stool GENITOURINARY: Without palpable bladder distension. Sloan catheter in with clear urine. MUSCULOSKELETAL: Gout tophi to fingers, knees, elbows and both ankles. Edema + 3 noted to all 4 extremities. NEUROLOGICAL: Trached. Patient awake. Communicates by mouthing words. Not communicating much today. Followed command with all 4 extremities. PSYCHIATRIC: No obvious anxiety/depression. no apparent hallucinations or other psychotic thought process. . Diagnostic Tests Laboratory Laboratory Tests Test 04/22/17 10:42 04/22/17 13:00 04/23/17 03:45 04/23/17 03:55 White Blood Count 16.6 TH/MM3 (4.0-11.0) 21.3 TH/MM3 (4.0-11.0) Red Blood Count 3.08 MIL/MM3 (4.50-5.90) 2.86 MIL/MM3 (4.50-5.90) Hemoglobin 8.2 GM/DL (13.0-17.0) 7.9 GM/DL (13.0-17.0) Hematocrit 26.7 % (39.0-51.0) 25.1 % (39.0-51.0) Mean Corpuscular Volume 86.6 FL (80.0-100.0) 87.7 FL (80.0-100.0) Mean Corpuscular Hemoglobin 26.7 PG (27.0-34.0) 27.7 PG (27.0-34.0) Mean Corpuscular Hemoglobin Concent 30.8 % (32.0-36.0) 31.6 % (32.0-36.0) Red Cell Distribution Width 17.6 % (11.6-17.2) 17.5 % (11.6-17.2) Platelet Count 263 TH/MM3 (150-450) 262 TH/MM3 (150-450) Mean Platelet Volume 7.9 FL (7.0-11.0) 8.2 FL (7.0-11.0) Neutrophils (%) (Auto) 80.4 % (16.0-70.0) 80.8 % (16.0-70.0) Lymphocytes (%) (Auto) 6.5 % (9.0-44.0) 6.7 % (9.0-44.0) Monocytes (%) (Auto) 8.2 % (0.0-8.0) 6.9 % (0.0-8.0) Eosinophils (%) (Auto) 4.5 % (0.0-4.0) 5.3 % (0.0-4.0) Basophils (%) (Auto) 0.4 % (0.0-2.0) 0.3 % (0.0-2.0) Neutrophils # (Auto) 13.3 TH/MM3 (1.8-7.7) 17.2 TH/MM3 (1.8-7.7) Lymphocytes # (Auto) 1.1 TH/MM3 (1.0-4.8) 1.4 TH/MM3 (1.0-4.8) Monocytes # (Auto) 1.4 TH/MM3 (0-0.9) 1.5 TH/MM3 (0-0.9) Eosinophils # (Auto) 0.7 TH/MM3 (0-0.4) 1.1 TH/MM3 (0-0.4) Basophils # (Auto) 0.1 TH/MM3 (0-0.2) 0.1 TH/MM3 (0-0.2) CBC Comment AUTO DIFF AUTO DIFF Differential Total Cells Counted 100 100 Neutrophils % (Manual) 76 % (16-70) 70 % (16-70) Band Neutrophils % 3 % (0-6) Lymphocytes % 6 % (9-44) 10 % (9-44) Monocytes % 7 % (0-8) 9 % (0-8) Eosinophils % 6 % (0-4) 8 % (0-4) Neutrophils # (Manual) 13.4 TH/MM3 (1.8-7.7) 15.5 TH/MM3 (1.8-7.7) Metamyelocytes 2 % (0-1) Differential Comment FINAL DIFF MANUAL FINAL DIFF MANUAL Platelet Estimate NORMAL (NORMAL) NORMAL (NORMAL) Platelet Morphology Comment NORMAL (NORMAL) NORMAL (NORMAL) Tear Drop Cells 1+ (NORMAL) 1+ (NORMAL) Blood Urea Nitrogen 37 MG/DL (7-18) 34 MG/DL (7-18) Creatinine 1.26 MG/DL (0.60-1.30) 1.17 MG/DL (0.60-1.30) Random Glucose 132 MG/DL (74-106) 136 MG/DL (74-106) Total Protein 5.4 GM/DL (6.4-8.2) 5.3 GM/DL (6.4-8.2) Albumin 2.5 GM/DL (3.4-5.0) 2.2 GM/DL (3.4-5.0) Calcium Level 8.7 MG/DL (8.5-10.1) 8.6 MG/DL (8.5-10.1) Phosphorus Level 2.2 MG/DL (2.5-4.9) Magnesium Level 1.8 MG/DL (1.5-2.5) Alkaline Phosphatase 86 U/L (45-117) 91 U/L (45-117) Aspartate Amino Transf (AST/SGOT) 22 U/L (15-37) 22 U/L (15-37) Alanine Aminotransferase (ALT/SGPT) 9 U/L (12-78) 7 U/L (12-78) Total Bilirubin 0.4 MG/DL (0.2-1.0) 0.4 MG/DL (0.2-1.0) Sodium Level 143 MEQ/L (136-145) 143 MEQ/L (136-145) Potassium Level 5.0 MEQ/L (3.5-5.1) 4.8 MEQ/L (3.5-5.1) Chloride Level 114 MEQ/L (98-107) 113 MEQ/L (98-107) Carbon Dioxide Level 22.4 MEQ/L (21.0-32.0) 21.5 MEQ/L (21.0-32.0) Anion Gap 7 MEQ/L (5-15) 9 MEQ/L (5-15) Estimat Glomerular Filtration Rate 58 ML/MIN (>89) 63 ML/MIN (>89) Stool C. difficile Toxin (PCR) ERROR (NEGATIVE) Stl C. difficile Toxin Epiderm 027 ERROR (NEGATIVE) Myelocytes 3 % (0-0) Test 04/24/17 05:42 04/24/17 06:09 04/24/17 12:55 Blood Urea Nitrogen 34 MG/DL (7-18) Creatinine 1.13 MG/DL (0.60-1.30) Random Glucose 122 MG/DL (74-106) Calcium Level 8.9 MG/DL (8.5-10.1) Phosphorus Level 2.5 MG/DL (2.5-4.9) Magnesium Level 1.6 MG/DL (1.5-2.5) Sodium Level 144 MEQ/L (136-145) Potassium Level 4.8 MEQ/L (3.5-5.1) Chloride Level 114 MEQ/L (98-107) Carbon Dioxide Level 21.0 MEQ/L (21.0-32.0) Anion Gap 9 MEQ/L (5-15) Estimat Glomerular Filtration Rate 66 ML/MIN (>89) White Blood Count 20.7 TH/MM3 (4.0-11.0) Red Blood Count 2.87 MIL/MM3 (4.50-5.90) Hemoglobin 8.0 GM/DL (13.0-17.0) Hematocrit 25.0 % (39.0-51.0) Mean Corpuscular Volume 86.9 FL (80.0-100.0) Mean Corpuscular Hemoglobin 27.9 PG (27.0-34.0) Mean Corpuscular Hemoglobin Concent 32.2 % (32.0-36.0) Red Cell Distribution Width 17.5 % (11.6-17.2) Platelet Count 285 TH/MM3 (150-450) Mean Platelet Volume 8.1 FL (7.0-11.0) Neutrophils (%) (Auto) 73.8 % (16.0-70.0) Lymphocytes (%) (Auto) 6.8 % (9.0-44.0) Monocytes (%) (Auto) 10.6 % (0.0-8.0) Eosinophils (%) (Auto) 8.3 % (0.0-4.0) Basophils (%) (Auto) 0.5 % (0.0-2.0) Neutrophils # (Auto) 15.3 TH/MM3 (1.8-7.7) Lymphocytes # (Auto) 1.4 TH/MM3 (1.0-4.8) Monocytes # (Auto) 2.2 TH/MM3 (0-0.9) Eosinophils # (Auto) 1.7 TH/MM3 (0-0.4) Basophils # (Auto) 0.1 TH/MM3 (0-0.2) CBC Comment AUTO DIFF Differential Total Cells Counted 100 Neutrophils % (Manual) 84 % (16-70) Band Neutrophils % 2 % (0-6) Lymphocytes % 3 % (9-44) Monocytes % 3 % (0-8) Eosinophils % 4 % (0-4) Neutrophils # (Manual) 18.6 TH/MM3 (1.8-7.7) Metamyelocytes 2 % (0-1) Myelocytes 2 % (0-0) Differential Comment FINAL DIFF MANUAL Platelet Estimate NORMAL (NORMAL) Platelet Morphology Comment NORMAL (NORMAL) Urine Color YELLOW (YELLW/STRAW) Urine Turbidity HAZY (CLEAR) Urine pH 5.5 (5.0-8.5) Urine Specific [place] 1.017 (1.002-1.035) Urine Protein 100 mg/dL (NEG-TRACE) Urine Glucose (UA) NEG mg/dL (NEG) Urine Ketones NEG mg/dL (NEG) Urine Occult Blood SMALL (NEG) Urine Nitrite NEG (NEG) Urine Bilirubin NEG (NEG) Urine Urobilinogen 2.0 MG/DL (LESS THAN Urine Leukocyte Esterase MOD (NEG) Urine RBC 2 /hpf (0-3) Urine WBC 19 /hpf (0-5) Urine WBC Clumps RARE (NONE) Urine Squamous Epithelial Cells <1 /hpf (0-5) Urine Bacteria OCC /hpf (NONE) Urine Mucus FEW /lpf (OCC) Microscopic Urinalysis Comment CATH-CULTURE IND Result Diagram: 04/24/17 0609 04/24/17 0542 Microbiology Microbiology Date/Time Source Procedure Growth Status 04/24/17 12:55 Urine Catheterized Urine Urine Culture Pending Received Procedures 01/25/2017- Retrievable IVC Filter placement 01/26/17-lumbar puncture with fluoroscopy-by interventional radiology 02/01/17- lumbar puncture fluoroscopy by interventional radiology 02/10/17- Endotracheal Intubation 02/10/17-left IJ central venous line placed 02/10/17-left femoral arterial line placed 02/11/17-Diagnostic and therapeutic bronchoscopy with bronchoalveolar lavage 02/11/17-Left upper extremity incision and debridement with excision of septic cephalic vein 02/13/17- Extubated 02/20/17- endotracheal intubation 02/20/17- Left subclavian central line placement 02/20/17-Right radial A-line placement 02/22/17-EGD/colonoscopy 02/28/17-right radial a line 02/28/17- Endotracheal intubation 02/28/17- right sided introducer catheter placement 02/28/17- Right IJ central line placement 02/28/17-Right chest tube placement 02/28/17- Embolization of inferior and superior sacral branches of right internal iliac artery 03/01/17- Hemodialysis access catheter 03/03/17-Right IJ central line placement 03/11/17-Extubated 03/13/17- Endotracheal intubation 03/14/17-Tracheostomy placement 03/15/17-PEG tube placement 04/13/17-thoracentesis right 600 cc removed 04/13/17-Tracheostomy up-sized to #8 Shiley . Assessment and Plan Disease Oriented Problem List: (1) Acute respiratory failure (2) Septic shock (3) Aspiration pneumonia (4) Acute renal failure (5) CKD (chronic kidney disease) stage 3, GFR 30-59 ml/min (6) Cardiomyopathy (7) DVT of lower extremity, bilateral (8) Thrombophlebitis arm (9) Diabetes mellitus (10) Gout (11) HTN (hypertension) (12) Hyperlipidemia Symptom Scale: (1) Shortness of breath 0-10 Scale: Unable to quantify Comment: Trach downsized to #6. Currently on Tpierce 35% . . (2) Debility 0-10 Scale: Unable to quantify Comment: Progressive. . (3) Pain 0-10 Scale: Unable to quantify Comment: History of falls, gout, arthritis, and currently bedbound. . Pertinent Non-Medical Issues Psychosocial:Patient was born and raised in [place], [place]. Patient was once for 20 years, now and has 2 adult sons. 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 He recently resigned due to failing health. Spiritual: No quaker affiliation Legal: Per [place] statutes, in the absence of written advanced directives healthcare proxy decision making falls to the patient's 2 adult children. Patient's son (Davie) lives locally and wishes to participate in the role of the healthcare proxy decision maker. Palliative care has attempted to contact Arnel, has not call back. Patient`s sister Deb and patients brother verbalized that they have been updating Arnel on patient`s medical status. Ethical issues impacting care: No known ethical issues impacting care at this time. . Important Contacts Son-Davie Kerr - Son-Arnel Kerr- -cell -home Sister-Deb Patricio . Prognosis Mr Kerr is a 62 years old male with a past medical history of hypertension, asthma, diabetes, hyperlipidemia, chronic kidney disease and gout. Patient presented to the ED on 01/22/17 complaining of bilateral knee and right arm pain after a mechanical fall 4 or 5 days prior to coming to the ER. Clinical course complicated with increased weakness leading to numerous diagnostic work ups for possible transverse myelitis, DVTs, retroperitoneal hematoma, aspiration pneumonia, intubation x 4 times, septic and hemorrhagic shock requiring support with pressors and multiple pRBC, FFP transfusions as well as platelets and cryo , renal failure requiring hemodialysis and sacral wound Given ongoing comorbidities, and prolonged hospitalization, patient remains at risk for further complications, deterioration and decline. Code Status: Full Code Plan PLAN: Legal decision maker: Patient is currently trached on TPierce and is not able to make any medical decisions for himself at this time. Patient has 2 adult sons Davie Kerr and Arnel Kerr. According to [place] Statute, his two aforementioned sons will serve as his health care proxys. Patient`s son Davie is acting in the role of HCP decision maker independently at this time given that he is the one who is reasonably available for consultation. Goals: 04/24/17 Remain Aggressive. No changes in goals.SSI pending-Case management following case. CODE STATUS: Full Code SYMPTOMS: * Shortness of breath: Multifactorial. Patient has had aspiration pneumonia. Patient has been intubated 4 times this hospitalization. Patient has a tracheostomy. On duonebs. Patient is also on Hydrocortisone 50mg q 6 hours. Skiver Operator following. Trach up-sized to #8. Now on Tpierce 35%- s/p CT guided thoracentesis, 600ml removed. Tobramycin nebs ordered. Passy maxime valve trial today- only lasted an hour due to tachypnea and anxiety. * Pain: Patient presented initially complaining of pain to right wrist and bilateral knees after a mechanical fall. Patient has a history of gout, arthritis, multiple falls and is currently bedbound. Patient on Oxycodone 5mg q 4 hours ATC. Patient on Hydrocortisone.Patient complaining of pain to back. * Debility: Progressive. Patient has had decline in his health for the past 4 months, including progressively increased weakness and difficulty ambulating and prolonged hospitalization with multiple setbacks. Patient remains at high risk for further physical deconditioning and debility. PT and OT following with patient. PT and OT following. Patient will benefit from getting OOB to a stretcher chair . PT, ST and OT following. Palliative care will continue to follow the patient during hospital course as condition evolves, to assist patient/decision-maker with understanding of their medical conditions, weighing benefits/burdens of treatment options, for clarification of goals of treatment. Additionally will assist with any symptoms of palliative concern. . Attestation To help prompt me to consider important information that might be impacting today's encounter and assessment, information from prior notes written by myself or my colleagues may have been "brought forward" into today's note. My signature on this note, however, is an attestation that I personally performed the exam, history, and/or decision-making noted today, and, unless otherwise indicated, the interactions with patient, family, and staff as well as the review of records all occurred today. I also attest that the listed assessment and stated plan reflect my best clinical judgment today based on the combination of historical information, prior notes, and today's exam/ interactions. When time spent is documented, it refers only to time spent today by the signer, or if indicated, combined time spent today by collaborating physician/nurse practitioner. . Aftab Cartwright Apr 24, 2017 17:21
[2017-04-24] MEDS: ATORVASTATIN 10 MG TAB PO SCH (21:37)
--- NOTE | 2017-04-24 21:57 | HHI.PR ---
Subjective Remarks on trach collar no new issues Objective Vital Signs Date Time Temp Pulse Resp B/P (MAP) Pulse Ox O2 Delivery O2 Flow Rate FiO2 04/24/17 16:00 118 04/24/17 16:00 98.0 110 24 98/60 (73) 98 04/24/17 12:00 98.0 110 24 98/60 (73) 98 04/24/17 12:00 118 04/24/17 09:45 100 Trach Collar 6.00 28 04/24/17 08:14 97 T-piece 6.00 35 04/24/17 08:00 98.0 130 35 121/69 (86) 98 04/24/17 08:00 118 04/24/17 04:00 98.0 121 35 96/64 (75) 98 04/24/17 04:00 118 04/24/17 00:00 97.9 118 34 112/70 (84) 96 04/24/17 00:00 118 04/23/17 22:00 117 I/O 04/23/17 04/23/17 04/23/17 04/24/17 04/24/17 04/24/17 07:00 15:00 23:00 07:00 15:00 23:00 Intake Total 2830 ml 1144 ml 1195 ml 1035 ml Output Total 1400 ml 1750 ml 1425 ml 1375 ml Balance 1430 ml -606 ml -230 ml -340 ml Intake Oral 40 ml 240 ml 240 ml IV Total 1680 ml Tube Feeding 710 ml 704 ml 715 ml 795 ml Other 400 ml 200 ml 240 ml 240 ml Output Urine Total 1000 ml 1650 ml 1075 ml 1250 ml Stool Total 400 ml 100 ml 350 ml 125 ml Result Diagram: 04/24/17 0609 04/24/17 0542 Objective Remarks GA: nad trach in place lungs: clear Heart: s1, S2 Abd: soft Neuro : no Change, Ext: pos for edema, no cyanosis Assessment and Plan Assessment and Plan 1: S/p Trach 2. s/p VDRF 3. Severe Deconditioning 4. Large Exudative Pleural effusion s/p drainage 5. Hypotension better 6. S/P Psdeud PNA 7. Sepsis I will cont current tx plan Broad spectrum abx as per ID recs Cont trach collar as tolerated i will not downsize his trach anytime soon no new intervention now TF GI/DVT prevention ok to leave icu from pulm perspective Rishabh Estrada MD Apr 24, 2017 21:57
[2017-04-25] VITALS (12 sets, daily range): BP systolic 93–102; BP diastolic 53–63; PULSE 107–119; RESP 25–36; TEMP 98–98.7; O2SAT 93–97
[2017-04-25] MEDS: VANCOMYCIN 500 MG VIAL (FOR ORAL USE ONLY) PO SCH ×4 (02:02→21:30)
[2017-04-25] MEDS: oxyCODONE HCL ORAL CONC 5 MG/0.25 ML SYRINGE PO SCH ×6 (02:02→21:31)
[2017-04-25] MEDS: ALPRAZolam 0.25 MG TAB PO PRN ×3 (02:24→14:27)
[2017-04-25] MEDS: HYDROCORTISONE 10 MG TAB PO SCH ×2 (06:28→17:41)
[2017-04-25] MEDS: CHLORHEXIDINE 0.12% (ORAL KIT) 15 ML CUP MT SCH ×2 (08:00→20:00)
[2017-04-25] MEDS: INSULIN ASPART SUPPLEMENTAL SCALE SQ SCH ×4 (08:00→21:00)
[2017-04-25] MEDS: RESP: TOBRAMYCIN SULFATE 80 MG/2 ML NEB NEB SCH ×2 (08:02→20:30)
[2017-04-25] MEDS: TAMSULOSIN HCL 0.4 MG CAP PO SCH ×2 (08:16→21:00)
[2017-04-25] MEDS: LACTOBACILLUS ACIDOPHILUS TAB PO SCH ×3 (08:16→17:41)
[2017-04-25] MEDS: QUEtiapine FUMARATE 25 MG TAB PO SCH (08:16)
[2017-04-25] MEDS: LANSOPRAZOLE SOLUTAB 30 MG TAB NG SCH ×2 (08:16→21:30)
[2017-04-25] MEDS: CHOLESTYRAMINE 4 GM PACKET G-TUBE SCH ×2 (08:16→21:30)
[2017-04-25] MEDS: INSULIN DETEMIR 100 UNITS/ML VIAL SQ SCH ×2 (08:17→21:00)
[2017-04-25] MEDS: COLLAGENASE OINT 30 GM TUBE TOPICAL SCH (08:17)
[2017-04-25] MEDS: SODIUM CHLORIDE 0.9% FLUSH 10 ML FLUSH IV FLUSH SCH ×3 (09:00→21:30)
[2017-04-25] MEDS: FLUCONAZOLE 100 MG TAB PO SCH (15:36)
--- NOTE | 2017-04-25 15:59 | HHI.CCPN ---
Subjective Remarks/Hospital Course Date of admission: 01/22 Date of critical care medicine consult 02/10 due to acute hypoxemic respiratory failure requiring emergent intubation 62-year-old male with a past medical history of hypertension, hyperlipidemia, diabetes mellitus, gout, uric acid kidney stones, kidney disease of unknown stage who originally presented to [facility] emergency department on 01/22 after a fall in which he sustained a right distal ulna fracture. He had been experiencing a gradual primarily lower extremity weakness as well as upper extremity weakness that was progressive. Neurology consult was obtained. MRI revealed no acute stroke. He had multifocal white matter changes. Tiny lacunar infarcts of the brainstem. Lumbar MRI report states L4-L5 disc protrusion with cetnral canal stenosis. Dr. Blackwell evaluated and states no cord compression on MRI C/T spine and recommended nonoperative management. Symptoms were felt to be consistent with transverse myelitis and he underwent Solumedrol 250 mg IV q6 hours 01/27-02/02. He also was found to have occlusive thrombus in the bilateral posterior tibial veins. Heparin was being avoided because he had traumatic lumbar puncture on 01/26 and 02/01. IVC filter was placed 01/25. He was undergoing physical therapy, reportedly making some improvements with plan to eventually discharged home with his son (max assist standing, and bed to chair per PT note). Apparently he had some vomiting the evening of 02/09 and additional vomiting on 02/10. He had a fever 102.8 on 02/09. Last recorded bowel movement was 02/03. Tonight he had acute onset of severe hypoxemia and respiratory distress. [facility] called and he was brought emergently to [facility] where his sats were 64% on 100% nonrebreather with mean arterial pressure 44. He was emergently intubated, CVL and art line placed. He is in septic shock. SUBJ: 02/11: Patient remains intubated sedated, critically ill. FiO2 reduced to 80% after increasing PEEP to 12. In severe septic shock Levophed at 16 mcg/m, vasopressin at 0.04 international units. D/W vascular surgery Dr. Enciso. He performed bedside Left upper extremity incision and debridement and excision of septic cephalic vein. 02/12: Remains intubated sedated profoundly septic, in shock on vasopressin and 7 mcg/min Levophed. FiO2 has improved to 45%, WBC count remains elevated with 20 ,000 white count significant left shift. Slight improvement in creatinine 2.9 urine output 750 ml 24 hours. 2-D echo shows LV ejection fraction 20-25%, no vegetation reported. Blood cultures 4 staph aureus. Wound culture pending 02/13: Remains critically ill but stable to improving. WBC count is down to 16, creatinine improving to 2.36. Off all pressors. Urine output also improving. 1.5L in 24 hours 02/14: Extubated 02/13. Tolerating well. WBC now down to 12.8. Creat improving 2.3 to 2. UO 3.4L. remains off all pressors. Was started on Precedex yesterday night for agitation, currently on 0.5 g per KG per hour. Chest x-ray shows left more than right air space disease 02/20/17 Re consult: 62-year-old male who was originally admitted for lower extremity weakness and found to have what was thought to be possible transverse myelitis. His hospital course his included a healthcare associated pneumonia, septic thrombophlebitis, DVT. He was most recently in the hospital floor where he had significant nausea and vomiting and diarrhea. His C. difficile test was recently negative. However, he has experienced worsening acute on chronic renal failure, hypotension, tachycardia, and severe hypoxemia. He did have a bout of vomiting earlier today, and his hospitalist attending suspects that he may have aspirated. He arrives by rapid response to the ICU with a nonrebreather in place in severe respiratory distress with SPO2 of 85%. I emergently intubate the patient, see separate procedure note for details. At this point the patient was hypotensive and tachycardic. He does have a history of an EF of 20%, however clinically he appears in florid septic shock. I placed central line and arterial line started vasopressors and gentle IV fluid resuscitation with 1 L of LR. Patient today was empirically broadened to vancomycin and Zosyn from his oxacillin which was initially treating MSSA bacteremia. He is recultured. Critical-care medicine is consulted to evaluate and manage his worsening multiorgan system failure and decompensated septic shock 02/21: Patient remains intubated sedated. Becomes anxious tachypnea on sedation lightening. Chest x-ray shows mild left lower lobe infiltrate. WBC count is slightly improved today from 23.2 t0 21. C Diff negative. UO adequate, creat slightly worsening. 1.57 today 02/22: Remains intubated sedated tolerated CPAP yesterday, plan is for EGD/ Colonscopy. WBC count back to normal. UO adequate. Creat stable 02/23: Tolerating CPAP trials following commands. Will do a spontaneous breathing trials. Status post EGD colonoscopy yesterday -Gastritis, esophagitis. Diverticulosis and multiple polyps. Urine output adequate but creatinine increasing to 1.7 with patient requiring multiple straight catheterization. We'll reinsert Sloan. 02/24: Breathing comfortably 24 hours after extubation. Protects airway well. 02/25: Excoriate bottom, will place rectal FMS. Start pureed diet. 02/26: Afebrile. Complaining of nausea and vomiting this afternoon. Increased stool output. Continue potassium replacement today. 02/27: 10 PM overnight, acutely hypotensive. Received 3 units PRBCs. Antibiotic coverage broadened to piperacillin/tazobactam, cortisol and 1 dose of vancomycin. Oxacillin drip currently on hold. Symptomatically, patient continues to vague abdominal pain/nausea vomiting which is unchanged for the past several days. Lipase elevated yesterday. Lactic acid normal. Troponin normal. Urinary retention after removal of Sloan. Straight catheter 1300. Cc 02/28: New diagnosis large retroperitoneal hematoma. Received 10 PRBC, 14 FFP, 2 platelets, 1 cryo-, 6 g calcium chloride, 2 is magnesium sulfate and 4 mg Bumex. CTA abdomen revealed possible arterial bleeds iliac, lumbar. Patient is currently on norepinephrine and epinephrine drips and possible need right nephrostomy tube placement due to large hematoma compressing ureter. Intra-abdominal bladder pressures are currently 13 03/01: Afebrile. Received 25 g albumin and 1 unit PRBCs overnight. Intra- abdominal bladder pressures currently 19. Currently on 3 micrograms per minute of norepinephrine. Njabz-jz-[id number] 1 out of 4 on 4 mics grams per kilogram per minute of cisatracurium. 03/02: Slightly hypothermic overnight. Hemoglobin appears to have stabilized. Troponin bump overnight likely secondary to demand ischemia from hypotension. Hemodynamically stable off all vasopressors. 03/03: Received 1 PRBCs overnight. 3 units currently. Off all vasopressors. Likely rebleeding. Stool is dark. 03/04: Remains unstable. Ventilator dependent. 03/05: afebrile. hgb stable. 03/06: bumex drip started overnight. good uop after bumex initiated. still grossly volume overloaded. Cr downtrending. more awake with transition to propofol. still too volume overloaded to tolerate extubation. hgb stable. 03/07: Afebrile. Tolerating tube feeds at goal with Nepro. Positive BM. On low-dose fentanyl and propofol drips. Potassium currently being replaced. 03/08: Eyes will open on ventilator. Afebrile. Tolerating tube feeding. Failed PSV trial yesterday due to apnea. 03/09: Following commands. Tmax 101. Tolerating tube feeding. One hour PSV trial yesterday. Currently tolerating well so far today 1.5 hours 03/10: Low-grade temperatures. Tolerating PSV trial 10 hours yesterday. Currently at 5/5 at 35%. We'll probably attempt extubation a.m. after hemodialysis. 03/11: Extubated currently in 4 L nasal cannula. Thick secretions thick clear with cough. Currently afebrile. Tolerating diet previously. 03/12: Sleepy this morning but arouses. Following commands. Refusing diet at the present time. On 2 L nasal cannula. 03/13: Patient reintubated last night for worsening respiratory status. Currently sedated on mechanical ventilation. Became hypotensive following intubation and is on Levophed 20 mics per minute. 03/14: Sedated, orally intubated on mech vent at the time of my evaluation this AM, subsequently underwent perc trach placement. Remains on levophed for pressor support. Transfused 1 unit PRBCs today. Persisten 03/15: Trach site clean, dry. CXR with bilateral basilar infiltrates. 03/16: Pulmonary congestion persists. Clinical condition not improving. Prognosis becoming increasingly bleak. 03/17: Glucose intolerance worse. No improvement in neurological function. 03/18: Remains on mechanical ventilation via tracheostomy. Off pressors now. Neurologic status remains poor. 03/19: Drowsy, encephalopathic, arousable. On mechanical ventilation via tracheostomy. Levemir increased for hyperglycemia today. Remains off pressors 03/20: More awake, moves both upper extremities. On mechanical ventilation via tracheostomy. Daily C Pap trials ongoing. 03/21: Awake and alert. On mechanical ventilation via tracheostomy. Opens and closes eyes on command. 03/22: Awake and alert. Tolerated T PIECE for 7 hours yesterday. Dialyzed today. 03/23: Currently on T piece trial. Status post dialysis yesterday on 3 L. Awake and alert. Wants to eat. Subjective 03/24: Currently afebrile. Hemodialysis catheter discontinued yesterday from left IJ. Persistent leukocytosis noted. Potassium will be replaced. Furosemide 40 mg twice a day IV to 20 mg IV twice a day 03/25: WBC count unchanged. Patient on T piece with humidified air greater than 48 hours, tolerating it well. Reconsulted 04/12: The patient was transferred emergently from the floor/ [facility]. Patient was initially seen by town clerk Dr. Estrada, and the patient was noted to be tachypneic on T piece of 40%. ABGs were performed which showed a PaO2 of 60 on T piece of FiO2 of 40%. Chest x-ray was performed which showed loss of entire left hemidiaphragm registered dental assistant rda consolidation in the left lower lobe. Concern for mucus plugging versus fluid. The patient was transferred emergently to [facility] placed on a ventilator CT of the chest is pending. Upon arrival in the room the patient is alert and oriented, mouthing words, nodding head to yes and no questions O2 sat is 100% but patient is currently on mechanical ventilation. Currently in no respiratory distress. 04/13: Tmax 99.8. The patient's oxygen requirements have decreased currently FiO2 35% with a PaO2 1 blood gas of 85, O2 saturation 100%. No respiratory distress noted. Patient underwent CT of the chest yesterday noted pleural effusions left greater than right, diagnostic/and therapeutic CT thoracentesis plan for this a.m.. 04/14: Patient underwent CT-guided thoracentesis of the right side with approximately 600 cc withdrawn. Today town clerk Dr. LABOY in and up size indwelling 6.0 Shiley to a 8.0 Shiley. Minimal bleeding noted around the site. X-ray improving. Patient started on CPAP trials today, as well as tube feeds were initiated. 04/15: Placed on T piece this morning via tracheostomy. Appears to be tolerating it. Laying in bed not in any acute distress. 04/16: Awake and alert. Tolerating T piece. Tolerating PEG feeds. 04/17: Awake and alert. Tolerating T piece. Tolerating tube feeds via PEG 04/18: Awake and alert. Tolerating TPs. Tolerating tube feeds. Passed swallow eval 04/19: Awake and alert. Remains on T piece. Wants to move out of ICU as he indicates to me once again as he has for the past few days. Awaiting CIC bed 04/20: Awake and alert. Remains on T piece. Developed hypotension last night for which she was transiently on Levophed however has been off since early this morning. ID adjusting antibiotics and working up for new sepsis. 04/21: Awake and alert. On T piece. Awaiting CIC bed for the last few days. 04/22: Awake and alert. Remains on T piece. Received 500 cc normal saline this morning for tachycardia. 04/23 No events overnight. Remains on TP's with 35% FIO2. Afebrile. 04/24: Resting comfortably. Got short of breath with Passy-Rafy valve which was taken off. 04/25: Remains on TPs. Awaiting transfer out of ICU. Objective Vital Signs Date Time Temp Pulse Resp B/P (MAP) Pulse Ox O2 Delivery O2 Flow Rate FiO2 04/25/17 12:00 98.0 116 25 96/57 (70) 97 04/25/17 08:03 T-piece 6.00 28 Intake and Output 04/25/17 04/25/17 04/26/17 08:00 16:00 00:00 Intake Total 867 ml Output Total 700 ml Balance 167 ml Result Diagram: 04/24/17 0609 04/24/17 0542 Imaging Last Impressions Chest X-Ray 04/17/17 0000 Signed Impressions: Service Date/Time: Monday, April 17, 2017 03:40 - CONCLUSION: Mild left effusion and possible accompanying atelectasis or consolidation at the left base Angelo Manzo MD Thoracentesis 04/13/17 1054 Signed Impressions: Service Date/Time: Thursday, April 13, 2017 15:26 - CONCLUSION: Uncomplicated CT-guided right thoracentesis. Candido Mendoza Jr., MD Chest CT 04/12/17 6158 Signed Impressions: Service Date/Time: March 17:51 - CONCLUSION: 1. Slight increase in size of bilateral effusions and basilar atelectasis, left greater than right compared with February 27. Tracheostomy in good position. Trace Holloway MD Renal Ultrasound 04/02/17 0000 Signed Impressions: Service Date/Time: Sunday, April 02, 2017 16:59 - CONCLUSION: Limited exam with the left kidney being unable to be evaluated in the bladder not distended. There do appear to be multiple shadowing stones at the right kidney without hydronephrosis. Angelo Manzo MD Wrist X-Ray 03/27/17 Signed Impressions: Service Date/Time: Monday, March 27, 2017 13:21 - CONCLUSION: 1. No acute fracture is identified. A portion of the previously documented distal ulna fracture remains visualized. 2. 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 Angelo Allen MD Aortography 02/28/17 0000 Signed Impressions: Service Date/Time: Tuesday, February 28, 2017 08:01 - CONCLUSION: 1. Active hemorrhage from distal right lateral sacral and iliolumbar branches successfully coil and Gelfoam embolized, as above. Juan Bhakta MD Abdomen/Pelvis CT 02/28/17 Signed Impressions: Service Date/Time: Tuesday, February 28, 2017 06:51 - CONCLUSION: 1. The right retroperitoneal hematoma has increased in size, as above. There are 2 serpiginous arterially enhancing structures visualized, one in the right psoas muscle and another extending into the hematoma at the right iliac fossa. These could represent sites of continued active bleeding. 2. Stable moderate size left and small right pleural effusion with associated compressive atelectasis. 3. Stable small volume of free fluid in the abdomen and pelvis. There is also anasarca. The findings concerning the retroperitoneal hematoma were discussed with Dr. Aguiar via telephone at approximately 7: 10 AM on 02/28/2017. Angelo Allen MD Abdomen X-Ray 02/26/17 0000 Signed Impressions: Service Date/Time: Sunday, February 26, 2017 14:52 - CONCLUSION: 1. Nonobstructive bowel gas pattern. Juan Bhakta MD Upper Extremity Ultrasound 02/10/17 0000 Signed Impressions: Service Date/Time: Friday, February 10, 2017 18:46 - CONCLUSION: Occlusive thrombus in the cephalic and basilic veins. Benjamin Person MD Lung Scan-V Nuclear Medicine 02/10/17 0000 Signed Impressions: Service Date/Time: Friday, February 10, 2017 22:17 - CONCLUSION: Low probability pulmonary embolism. Candido Patton MD Head CT 02/10/17 0000 Signed Impressions: Service Date/Time: Friday, February 10, 2017 23:51 - CONCLUSION: Negative noncontrast CT brain. Candido Patton MD Lumbar Puncture Fluoroscopy 02/01/17 0000 Signed Impressions: Service Date/Time: January 09:35 - CONCLUSION: Uncomplicated fluoroscopically guided lumbar puncture. CSF was clear. Nabeel Peralta MD Head Magnetic Resonance Angiography 01/27/17 0000 Signed Impressions: Service Date/Time: Friday, January 27, 2017 10:33 - CONCLUSION: No intracranial vascular abnormality is identified. There is no aneurysm visualized. Angelo Allen MD IVC Filter Placement X-Ray 01/25/17 Signed Impressions: Service Date/Time: January 10:29 - CONCLUSION: Uncomplicated inferior vena cava filter placement as above. Yung Fowler MD Thoracic Spine MRI 01/24/17 0000 Signed Impressions: Service Date/Time: Tuesday, January 24, 2017 22:29 - CONCLUSION: 1. Mild degenerative spondylosis most prominently at T11-L1 with slight effacement of the anterior thecal sac and left lateral recess. No significant neural foraminal stenosis. 2. No acute fracture. Juan Bhakta MD Lumbar Spine MRI 01/23/17 0000 Signed Impressions: Service Date/Time: Monday, January 23, 2017 17:01 - CONCLUSION: 1. At L4-5 is a broad-based disc protrusion with severe central canal and lateral recess stenosis and flattening of the exiting right L4 nerve root. 2. L5-S1 there is a disc protrusion and moderate stenosis with flattening of the exiting L5 nerve roots bilaterally. 3. At L3-4 there is a moderate to severe central stenosis and lateral recess stenosis with mild foraminal stenosis. 4. No acute fracture or spondylolisthesis. Trace Holloway MD Lower Extremity Ultrasound 01/23/17 0000 Signed Impressions: Service Date/Time: Monday, January 23, 2017 09:53 - CONCLUSION: Bilateral focal lower extremity DVT involving the posterior tibial veins. Angelo Garrido MD Cervical Spine MRI 01/23/17 0000 Signed Impressions: Service Date/Time: Monday, January 23, 2017 17:01 - CONCLUSION: 1. Multilevel cervical spine degenerative changes as above. 2. Mild degrees of spinal stenosis at C3/C4-C6/C7. No cord compression or cord signal abnormality. 3. Age indeterminate left paracentral/foraminal disc protrusion at C6/C7. 4. Multilevel foraminal stenosis, most severe on the left at C6/C7. Please see individual levels above. 5. No fracture or subluxation of the cervical spine. Angelo Garrido MD Brain MRI 01/23/17 0000 Signed Impressions: Service Date/Time: Monday, January 23, 2017 17:01 - CONCLUSION: 1. No acute stroke or other acute intracranial abnormality demonstrated. 2. Moderate severity chronic white matter changes, nonspecific but most likely related to chronic small vessel disease. 3. Few scattered tiny lacunar infarcts of the brainstem. 4. Given the findings are not entirely specific, clinical evaluation for possible multiple sclerosis recommended. Angelo Garrido MD Knee X-Ray [id number]/22/[id number] Signed Impressions: Service Date/Time: Sunday, January 22, 2017 21:17 - CONCLUSION: 1. Evidence of moderate to large joint effusion. 2. No acute fracture or malalignment. 3. Mild 3 compartment osteoarthritic change. Benjamin Person MD Hip and Pelvis X-Ray [id number]/[id number] Signed Impressions: Service Date/Time: Sunday, January 22, 2017 21:10 - CONCLUSION: 1. Mild to moderate degenerative change of both hips with no acute fracture or malalignment. There is flattening and remodeling of the right humeral head. Benjamin Person MD Objective Remarks GENERAL: 62-year-old male, resting in bed, on T piece, in no apparent distress nodding head to yes and no questions HEENT: Normocephalic. Atraumatic. Pupils equal, round, reactive. NECK: Tracheostomy in place, around trach site erythematous, yellowish drainage CHEST: On T piece, air entry decreased bilaterally . Scattered rhonchi, no wheezing CARDIOVASCULAR: S1-S2 regular, no gallop or murmur ABDOMEN distended. No rigidity. Umbilical hernia is reducible. No guarding. PEG tube in place : Positive scrotal edema Sloan in situ MUSCULOSKELETAL: Pulses 2+. 1+ bilateral upper and lower extremity edema. NEUROLOGICAL: Awake and alert, has spontaneous eye opening. Opens and closes eyes on command. Moves 4 limbs weakly to stimulation. Procedures 01/25/2017- Retrievable IVC Filter placement 01/26/17-lumbar puncture with fluoroscopy-by interventional radiology 02/01/17- lumbar puncture fluoroscopy by interventional radiology 02/10/17- Endotracheal Intubation 02/10/17-left IJ central venous line placed 02/10/17-left femoral arterial line placed 02/11/17-Diagnostic and therapeutic bronchoscopy with bronchoalveolar lavage 02/11/17-Left upper extremity incision and debridement with excision of septic cephalic vein 02/13/17- Extubated 02/20/17- endotracheal intubation 02/20/17- Left subclavian central line placement 02/20/17-Right radial A-line placement 02/22/17-EGD/colonoscopy 02/28/17-right radial a line 02/28/17- Endotracheal intubation 02/28/17- right sided introducer catheter placement 02/28/17- Right IJ central line placement 02/28/17-Right chest tube placement 02/28/17- Embolization of inferior and superior sacral branches of right internal iliac artery 03/01/17- Hemodialysis access catheter 03/03/17-Right IJ central line placement 03/11/17-Extubated 03/13/17- Endotracheal intubation 03/14/17-Tracheostomy placement, trach downsized to 6.0 Anni 03/30/17 03/15/17-PEG tube placement 04/11/17-CT Chest 04/13/17-thoracentesis right 600 cc removed Date of Insertion: Feb 20, 2017 Date of Insertion: Mar 03, 2017 Line: Central Venous Catheter Side: Right Location: Internal, Jugular A/P Problem List: (1) Septic shock ICD Code: A41.9 - Sepsis, unspecified organism; R65.21 - Severe sepsis with septic shock Status: Acute (2) Acute respiratory failure ICD Code: J96.00 - Acute respiratory failure, unspecified whether with hypoxia or hypercapnia Status: Acute (3) Thrombophlebitis arm ICD Code: I80.8 - Phlebitis and thrombophlebitis of other sites (4) Aspiration pneumonia ICD Code: J69.0 - Pneumonitis due to inhalation of food and vomit Status: Acute (5) Atelectasis of left lung ICD Code: J98.11 - Atelectasis Status: Acute (6) Quadriparesis ICD Code: G82.50 - Quadriplegia, unspecified Status: Acute (7) DVT (deep venous thrombosis) ICD Code: I82.409 - Acute embolism and thrombosis of unspecified deep veins of unspecified lower extremity (8) Altered mental status ICD Code: R41.82 - Altered mental status, unspecified Status: Acute (9) CKD (chronic kidney disease) stage 3, GFR 30-59 ml/min ICD Code: N18.3 - Chronic kidney disease, stage 3 (moderate) Status: Chronic (10) Acute renal failure ICD Code: N17.9 - Acute kidney failure, unspecified Status: Acute (11) Diabetes mellitus ICD Code: E11.9 - Type 2 diabetes mellitus without complications Status: Chronic (12) Distal end of ulna fracture, closed ICD Code: S52.609A - Unspecified fracture of lower end of unspecified ulna, initial encounter for closed fracture Status: Acute (13) Gout ICD Code: M10.9 - Gout, unspecified Status: Chronic Assessment and Plan Assessment: NEURO/PSYCH: Acute metabolic encephalopathy- persistent Quadriparesis secondary to suspected transverse myelitis Recurrent falls Suspected transverse myelitis. Received methylprednisolone 250 mg IV every 6 hours 01/27-02/02, started back on hydrocortisone 02/21/17, initially tapering to 50 mg IV every 8 hours starting received 1 dose at 2100 prior to becoming hypotensive. weaning hydrocortisone taper and stopped 03/09. Resumed hydrocortisone 50mg IV Q6hrly on 03/14 as patient became hypotensive following intubation on 03/13 requiring levophed. Continue Hydrocortisone 50 mg IV every 6 hours LP 01/26 and 02/01. CSF culture negative 01/26, 02/01 Oligoclonal bands negative. CSF/serum IgG index is not elevated. VDRL nonreactive. Cryptococcal antigen negative. Brain MRI 01/23 no acute stroke. Few scattered lacunar infarcts of the brainstem. Moderate chronic white matter changes. MRI cervical/thoracic spine- mild spinal stenosis C3/C4 to C6/C7. No cord compression. RPR negative Neurology has been following, Dr. Crenshaw. Repeat CT brain 02/10 - negative Continue PT/OT Continue oxycodone 10 mg every 4 hours scheduled RESP: Acute hypoxemic respiratory failure Healthcare associated pneumonia/Aspiration Pneumonia S/P Right-sided chest tube 02/28 Off mechanical ventilation, vent bundle, tolerating T piece. -On T piece >48 hours. Humidified room air Albuterol/ipratropium aerosols every 6 hours with albuterol aerosols every 2 hours prn VQ scan 02/[address] PE[address] CT chest 02/10 - left lower lobe collapse and consolidation. CT chest 02/27 revealed right greater than left pleural effusions. Extubated 02/23. Intubated 02/28. Extubated 03/11, Reintubated on 03/13. 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 Failed attempt to wean successfully due to volume overload and multiple organ failure. underwent perc tracheostomy 03/14. CT chest 04/12-slight increase and bilateral effusions left greater than right basilar atelectasis CXR 04/13-moderate pleural effusion left with consolidation of the left lung Pulmonology following Dr. Estrada - 04/13 CT guided thoracentesis scheduled emergently as discussed with Dr. Estrada - 600cc removed (right) 04/14-tracheostomy up sized to 8.[address] [place] [address] Estrada at bedside CV: Severe sepsis - resolved. Systolic heart failure likely chronic with ejection fraction 20-25% Hyperlipidemia History of hypertension Mild TR Sinus tachycardia Elevated troponin likely type II demand ischemia Monitor HR and BP keep MAP>65mmHg As needed Nitropaste, labetalol and hydralazine for hypertension Atorvastatin 10 mg by mouth daily for dyslipidemia. Troponin 0.[address]-T changes. 2-D echocardiogram 01/11 revealed EF 20-25%. Mild TR. Pulmonary arterial pressures were normal around 20 GI: Large right retroperitoneal hematoma Erosive esophagitis Adematous/hyperplastic colon polyps Severe acute protein calorie malnutrition Nausea/vomiting - resolved. Diarrhea Gastritis Diverticulosis Internal and external hemorrhoids Hiatal hernia Elevated lipase Continue tube feeds- on Glucerna 1.5 @65ml/hr 02/27 CT chest/abdomen and pelvis - 9.4 x 7.5 renal and 16 x 12 cm right psoas muscle hematoma. Fluid around liver and spleen. Right-sided nephrolithiasis CTA abdomen 02/28 - possible blushing around iliac/lumbar vessels Discussed with IR. s/p attempted embolization CT abdomen and pelvis 02/10 atrophic left kidney. Bilateral inguinal hernias fat- containing. Nonobstructing 12 mm right kidney stone repeat CT abd/pelvis did not show evidence of obstruction. patient clinically has been having diarrhea (c. diff negative 02/19). also with nausea/vomiting of unclear etiology. EGD/Colonoscopy-02/22/17 showed gastritis esophagitis, hiatal hernia, diverticulosis and multiple polyps in descending colon and sigmoid which were snared biopsied. 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 Recommended nephrostomy tube if obstruction Nephrology consulted, off hemodialysis. Making urine. ICU electrolyte replacement protocol Last IHD was 03/22 ID: Septic shock- resolved. Abscess and Suppurative thrombophlebitis left upper extremity MSSA bacteremia Klebsiella UTI ESBL positive Acute aspiration pneumonia/HCAP Previously treated with Bactrim, ertapenem, intermittent vancomycin, nafcillin Blood cultures 2, UA ESBL positive Klebsiella UTI Sputum 03/14 - Pseudomonas came back resistant to imipenem, Stenotrophomonas maltophilia Antibiotics per ID. on Tobra nebs, PO Vanco and Diflucan. Meropenem discontinued on 04/23. ID-Dr. Edwards. HEME: Acute blood loss anemia DVT, bilateral posterior tibial vein, IVC filter Septic thrombophlebitis with occlusive thrombus mid cephalic and basilic vein side Monitor CBC Received 10 PRBC, 14 FFP, 2 platelets, 1 cryo-02/28 Received 3 units PRBCs Ultrasound 01/23/17 - Bilateral lower extremity with occlusive posterior tibial vein DVTs. Heparin was initially started for DVT but was placed on hold due to LP with suspected traumatic tap. Currently holding full anticoagulation with enoxaparin 100 mg IV twice a day due to anemia as of 02/26 IVC filter was placed 01/25/17. Ultrasound LUE 02/10 occlusive thrombus mid cephalic vein, basilic vein.s. Transfuse 3 units PRBCs 02/27 Transfuse 2 units PRBCs 03/01. Transfused 1 unit PRBCs on 03/14 ENDO: Diabetes mellitus Hypoglycemia History of prior adrenal insufficiency with shock Gout EGD colonoscopy completed 02/22. gastritis and esophagitis, colon polyps On tape dose steroids- HC 10 mg by mouth every 12 hourly Accu-Cheks to maintain euglycemia Novulin R every 4 hours. Low Regimen Currently on insulin detemir 25 units twice a day for hyperglycemia MSK: Right distal ulna fracture. Recommended nonoperative management. PROPH: Lansoprazole 30 mg twice a day twice a day for stress ulcer prophylaxis. Has IVC filter. Therapeutic enoxaparin was placed on hold for retroperitoneal hematoma ACCESS: right IJ CVL placed 03/03-03/20. A left IJ hemodialysis catheter placed 03/01 - 03/23. 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 Consult placed to hospitalist service on 04/17. Hospitalist service to take over patient care when patient transferred out of ICU. Problem Qualifiers (1) Aspiration pneumonia: (2) DVT (deep venous thrombosis): Qualified Codes: I82.443 - Acute embolism and thrombosis of tibial vein, bilateral (3) Acute renal failure: Qualified Codes: N17.9 - Acute kidney failure, unspecified (4) Diabetes mellitus: (5) Gout: Devin Puente MD Apr 25, 2017 15:59
[2017-04-25] MEDS: ATORVASTATIN 10 MG TAB PO SCH (21:30)
[2017-04-26] VITALS (11 sets, daily range): BP systolic 73–97; BP diastolic 46–57; PULSE 93–108; RESP 24–37; TEMP 97.7–98.7; O2SAT 91–97
[2017-04-26] MEDS: oxyCODONE HCL ORAL CONC 5 MG/0.25 ML SYRINGE PO SCH ×6 (02:00→22:00)
[2017-04-26] MEDS: VANCOMYCIN 500 MG VIAL (FOR ORAL USE ONLY) PO SCH ×4 (03:48→21:23)
[2017-04-26] MEDS: HYDROCORTISONE 10 MG TAB PO SCH ×2 (06:00→16:45)
[2017-04-26 07:34] LABS: BASOPHIL # 0.1 TH/MM3 (0-0.2); BASOPHIL % 0.4 % (0.0-2.0); EOSINOPHIL # 1.9 TH/MM3 (0-0.4); EOSINOPHIL % 10.5 % (0.0-4.0); HEMATOCRIT 23.1 % (39.0-51.0); LYMPHOCYTE # 1.1 TH/MM3 (1.0-4.8); MEAN CELL VOLUME 87.3 FL (80.0-100.0); MEAN CORPUSCULAR HEMOGLOBIN 27.3 PG (27.0-34.0); MEAN CORPUSCULAR HGB CONC 31.3 % (32.0-36.0); NEUT % 73.1 % (16.0-70.0); PLATELET COUNT 280 TH/MM3 (150-450); RED BLOOD COUNT 2.65 MIL/MM3 (4.50-5.90); RED CELL DISTRIBUTION WIDTH 17.7 % (11.6-17.2); WHITE BLOOD COUNT 17.8 TH/MM3 (4.0-11.0)
[2017-04-26 07:53] LABS: HEMO FLAGS AUTO DIFF
[2017-04-26] MEDS: INSULIN ASPART SUPPLEMENTAL SCALE SQ SCH ×4 (08:00→22:53)
[2017-04-26 08:07] LABS: ALKALINE PHOSPHATASE 104 U/L (45-117); ALT (GPT) 8 U/L (12-78); ANION GAP 5 MEQ/L (5-15); AST (GOT) 28 U/L (15-37); BICARBONATE 24.9 MEQ/L (21.0-32.0); BLOOD UREA NITROGEN 42 MG/DL (7-18); CHLORIDE 115 MEQ/L (98-107); GLOMERULAR FILTRATION RATE 66 ML/MIN (>89); POTASSIUM 5.3 MEQ/L (3.5-5.1); SODIUM (NA) 145 MEQ/L (136-145); TOTAL BILIRUBIN ADULT 0.3 MG/DL (0.2-1.0)
[2017-04-26] MEDS: RESP: TOBRAMYCIN SULFATE 80 MG/2 ML NEB NEB SCH ×2 (08:17→20:22)
[2017-04-26 08:57] LABS: BANDS 11 % (0-6); BASOPHILS 1 % (0-2); EOSINOPHILS 7 % (0-4); METAMYELOCYTES 2 % (0-1); MYELOCYTES 3 % (0-0); NEUTROPHIL # MANUAL DIFF 14.8 TH/MM3 (1.8-7.7); PLATELET ESTIMATE SMEAR NORMAL (NORMAL); PLATELET MORPHOLOGY NORMAL (NORMAL); POLYS (SEG NEUTROPHILS) 67 % (16-70); SCAN/DIFF FINAL DIFF MANUAL; WBC DIFF SAMPLE 100
[2017-04-26 08:58] LABS: OVALOCYTES 1+ (NORMAL); TEARDROP RBCS 1+ (NORMAL)
[2017-04-26] MEDS: SODIUM CHLORIDE 0.9% FLUSH 10 ML FLUSH IV FLUSH SCH ×3 (09:00→21:23)
[2017-04-26] MEDS: QUEtiapine FUMARATE 25 MG TAB PO SCH (09:38)
[2017-04-26] MEDS: CHOLESTYRAMINE 4 GM PACKET G-TUBE SCH ×2 (09:38→21:22)
[2017-04-26] MEDS: LACTOBACILLUS ACIDOPHILUS TAB PO SCH ×3 (09:38→18:00)
[2017-04-26] MEDS: TAMSULOSIN HCL 0.4 MG CAP PO SCH ×2 (09:38→21:00)
[2017-04-26] MEDS: LANSOPRAZOLE SOLUTAB 30 MG TAB NG SCH ×2 (09:39→21:23)
[2017-04-26] MEDS: INSULIN DETEMIR 100 UNITS/ML VIAL SQ SCH ×2 (09:39→22:53)
--- NOTE | 2017-04-26 14:36 | HHI.IDPN ---
Subjective Subjective Remarks Patient is a 62-year-old male, admitted to the hospital for evaluation of pain in his right wrist. He gave a history of falling about a week ago and apparently had immediate pain in the right wrist. He did not seek any medical attention initially because reportedly he was very busy. He eventually presented, and he was found to have a distal ulnar fracture on plain films. He also had some redness and swelling. Orthopedics saw the patient, and was being treated conservatively with the splint. During this hospitalization also he started complaining of generalized weakness but more so in his lower extremity than his upper extremity. He had swelling in both lower extremity which revealed evidence of DVT in the posterior tibial veins. Neurology had seen the patient and he underwent lumbar puncture which apparently was traumatic. Patient was therefore not given anticoagulation because of the traumatic LP, and he underwent placement of an IVC filter on January 25. Patient had another lumbar puncture on February 01. He was felt to have transverse myelitis, and he was given high-dose IV Solu-Medrol from January 27 to February 02. There was apparently some improvement in his weakness. The imaging studies done for his weakness showed some spinal stenosis, and neurosurgery was consult that and recommended that there was no surgical intervention to be done. Patient has been stabilizing, but last night apparently deteriorated, and he ended up getting intubated, and had significant hypotension requiring pressors. There was also an ultrasound done of his left upper extremity which showed DVT, and there was evidence of superior 2 thrombophlebitis. Vascular surgery was consult to it and he had IND on his left upper extremity. Patient has had some fevers since yesterday. 2 blood cultures were done yesterday and they're now reported as growing gram-positive cocci in [place] in clusters. He is currently sedated and intubated. He is on Levophed and vasopressin. A central line was placed as well as a femoral a line. He apparently had an IV in his left upper extremity and that was removed yesterday. Patient also has history of chronic kidney disease, and nephrology evaluated the patient. He was just being monitored for his renal insufficiency. Reconsulted 04/12 for low grade fever, leucocytosis, worsening CXR concern for new pneumonia. Notes reviewed Temps normal repeat UC after palmer changed is negative WBC decreasing Stool less volume Remains on T-piece Antibiotics Current Medications Diflucan Oral Vanco Tobra nebs Medications (Trade) Dose Ordered Sig/Rosalia Route Start Time Stop Time Status Last Admin (NS Flush) 2 ml UNSCH PRN IV FLUSH 01/23/17 00:30 04/19/17 17:15 (NS Flush) 2 ml BID IV FLUSH 01/23/17 09:00 04/26/17 09:38 (Zofran Inj) 4 mg Q6H PRN IVP 01/23/17 00:30 02/26/17 17:23 (Narcan Inj) 0.4 mg UNSCH PRN IV 01/23/17 00:30 (Edna-Colace) 1 tab BID PO 01/23/17 09:00 Future Hold 02/24/17 20:31 (Dulcolax Supp) 10 mg DAILY PRN RECTAL 01/23/17 00:30 (Lipitor) 10 mg HS PO 01/24/17 21:00 Future hold 04/25/17 21:30 (Glucagon Inj) 1 mg UNSCH PRN OTHER 02/11/17 05:45 02/18/17 18:53 (Flomax) 0.4 mg Q12HR PO 02/17/17 15:00 Future hold 04/26/17 09:38 (Lovenox Inj) 100 mg Q12H SQ 02/18/17 12:00 Future Hold 02/26/17 16:20 (Lactinex) 1 tab TID PO 02/19/17 13:00 04/26/17 09:38 (D50w (Vial) Inj) 25 ml UNSCH PRN IV PUSH 02/20/17 12:45 03/27/17 13:20 (Questran Light Pkt) 4 gm Q12HR PO 02/25/17 21:00 Future Hold 02/27/17 10:32 (Aldactone) 25 mg DAILY PO 02/27/17 09:00 Future Hold (Peridex 0.12% Liq) 15 ml BID@08,20 MT 02/28/17 08:00 04/25/17 20:00 (NS Flush) UNSCH PRN IV FLUSH 03/01/17 13:00 (Heparin Inj) UNSCH PRN IV FLUSH 03/01/17 13:00 (NS Flush) DAILY IV FLUSH 03/04/17 09:00 04/25/17 09:00 (NS Flush) UNSCH PRN IV FLUSH 03/03/17 18:45 (Prevacid Odt) 30 mg BID NG 03/07/17 21:00 04/26/17 09:39 (Tylenol 650 Mg/ 20 ml Liq) 650 mg Q6H PRN PO 03/09/17 10:15 04/19/17 21:02 (Tenormin) 25 mg Q12HR PO 03/12/17 10:00 Future Hold 04/18/17 10:09 (Epogen Inj) 10,000 units UNSCH PRN IV PUSH 03/17/17 11:30 03/22/17 10:52 (Nitroglycerin 2% Oint) 2 inch Q6H PRN TOPICAL 03/23/17 14:00 03/29/17 01:20 (Norvasc) 10 mg DAILY PO 03/28/17 09:00 Future Hold 04/19/17 08:16 (Roxicodone Intensol Liq) 5 mg Q4H PO 04/01/17 18:00 04/26/17 09:39 (NovoLOG SUPPLEMENTAL SCALE) 1 ACHS SLIDING SCALE SQ 04/02/17 12:00 04/26/17 08:00 (Levemir Inj) 10 units BID SQ 04/03/17 21:00 04/26/17 09:39 (NovoLOG INJ) 5 units TIDAC SQ 04/03/17 17:00 Future Hold 04/10/17 08:00 (Xanax) 0.125 mg Q6H PRN PO 04/03/17 22:30 04/25/17 14:27 (Pill Splitter) 1 ea UNSCH PRN OTHER 04/03/17 22:45 (Levsin Liq) 0.125 mg Q4H PRN G-TUBE 04/06/17 15:00 04/12/17 10:09 (Questran 4 Gm Pkt) 4 gm Q12HR G-TUBE 04/08/17 21:00 04/26/17 09:38 (SEROquel) 25 mg DAILY PO 04/09/17 09:00 04/26/17 09:38 (Santyl Oint) 1 applic DAILY TOPICAL 04/10/17 09:00 04/25/17 08:17 (Cortef) 10 mg Q12H PO 04/10/17 18:00 04/26/17 06:00 (Lasix Inj) 40 mg BID@09,18 IV PUSH 04/12/17 18:00 Future Hold 04/19/17 17:15 (Duoneb Neb) 1 ampule Q2HR NEB PRN NEB 04/12/17 17:00 04/24/17 09:45 (Tobramycin Neb) 80 mg Q12HR NEB NEB 04/16/17 09:15 04/30/17 23:00 04/26/17 08:17 (Diflucan) 100 mg Q24H PO 04/20/17 15:00 04/25/17 15:36 (VANCOMYCIN for oral use only) 125 mg Q6H PO 04/21/17 21:00 05/01/17 23:00 04/26/17 09:39 (Lopressor Inj) 2.5 mg Q6H PRN IV PUSH 04/23/17 01:15 04/23/17 09:36 Lines PIV - Line sites with no e.o infection Past Medical History Reviewed Allergies: Coded Allergies: levofloxacin (Verified Allergy, Severe, 01/22/17) Objective . Vital Signs Date Time Temp Pulse Resp B/P (MAP) Pulse Ox O2 Delivery O2 Flow Rate FiO2 04/26/17 08:18 95 T-piece 50 04/26/17 08:00 T-Piece 35 04/26/17 08:00 98.6 107 30 92/53 (66) 97 04/26/17 08:00 107 04/26/17 04:00 104 04/26/17 04:00 98.7 105 37 84/52 (63) 97 04/26/17 00:00 101 04/26/17 00:00 98.3 104 34 82/53 (63) 94 04/25/17 20:31 94 T-piece 6.00 28 04/25/17 20:00 111 04/25/17 20:00 98.3 109 36 93/53 (66) 94 04/25/17 19:00 94 T-Piece 35 04/25/17 18:00 107 04/25/17 16:00 98.7 116 25 98/62 (74) 97 04/25/17 16:00 107 04/25/17 16:00 107 . Laboratory Tests Test 04/26/17 06:50 White Blood Count 17.8 TH/MM3 Red Blood Count 2.65 MIL/MM3 Hemoglobin 7.2 GM/DL Hematocrit 23.1 % Mean Corpuscular Volume 87.3 FL Mean Corpuscular Hemoglobin 27.3 PG Mean Corpuscular Hemoglobin Concent 31.3 % Red Cell Distribution Width 17.7 % Platelet Count 280 TH/MM3 Mean Platelet Volume 8.2 FL Neutrophils (%) (Auto) 73.1 % Lymphocytes (%) (Auto) 6.0 % Monocytes (%) (Auto) 10.0 % Eosinophils (%) (Auto) 10.5 % Basophils (%) (Auto) 0.4 % Neutrophils # (Auto) 13.0 TH/MM3 Lymphocytes # (Auto) 1.1 TH/MM3 Monocytes # (Auto) 1.8 TH/MM3 Eosinophils # (Auto) 1.9 TH/MM3 Basophils # (Auto) 0.1 TH/MM3 CBC Comment AUTO DIFF Differential Total Cells Counted 100 Neutrophils % (Manual) 67 % Band Neutrophils % 11 % Lymphocytes % 3 % Monocytes % 6 % Eosinophils % 7 % Basophils % 1 % Neutrophils # (Manual) 14.8 TH/MM3 Metamyelocytes 2 % Myelocytes 3 % Differential Comment FINAL DIFF MANUAL Platelet Estimate NORMAL Platelet Morphology Comment NORMAL Tear Drop Cells 1+ Ovalocytes 1+ Laboratory Tests Test 04/26/17 06:50 Blood Urea Nitrogen 42 MG/DL Creatinine 1.13 MG/DL Random Glucose 144 MG/DL Total Protein 5.2 GM/DL Albumin 1.8 GM/DL Calcium Level 10.0 MG/DL Alkaline Phosphatase 104 U/L Aspartate Amino Transf (AST/SGOT) 28 U/L Alanine Aminotransferase (ALT/SGPT) 8 U/L Total Bilirubin 0.3 MG/DL Sodium Level 145 MEQ/L Potassium Level 5.3 MEQ/L Chloride Level 115 MEQ/L Carbon Dioxide Level 24.9 MEQ/L Anion Gap 5 MEQ/L Estimat Glomerular Filtration Rate 66 ML/MIN Microbiology Date/Time Source Procedure Growth Status 04/24/17 12:55 Urine Catheterized Urine Urine Culture - Final NO GROWTH IN 48 HOURS. Complete Imaging Last Impressions Chest X-Ray 04/17/17 0000 Signed Impressions: Service Date/Time: Monday, April 17, 2017 03:40 - CONCLUSION: Mild left effusion and possible accompanying atelectasis or consolidation at the left base Angelo Manzo MD Thoracentesis 04/13/17 1054 Signed Impressions: Service Date/Time: Thursday, April 13, 2017 15:26 - CONCLUSION: Uncomplicated CT-guided right thoracentesis. Candido Mendoza Jr., MD Chest CT 04/12/17 1558 Signed Impressions: Service Date/Time: March 17:51 - CONCLUSION: 1. Slight increase in size of bilateral effusions and basilar atelectasis, left greater than right compared with February 27. Tracheostomy in good position. Trace Holloway MD Renal Ultrasound 04/02/17 0000 Signed Impressions: Service Date/Time: Sunday, April 02, 2017 16:59 - CONCLUSION: Limited exam with the left kidney being unable to be evaluated in the bladder not distended. There do appear to be multiple shadowing stones at the right kidney without hydronephrosis. Angelo Manzo MD Wrist X-Ray 03/27/17 0000 Signed Impressions: Service Date/Time: Monday, March 27, 2017 13:21 - CONCLUSION: 1. No acute fracture is identified. A portion of the previously documented distal ulna fracture remains visualized. 2. 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 Angelo lAlen MD Aortography 02/28/17 0000 Signed Impressions: Service Date/Time: Tuesday, February 28, 2017 08:01 - CONCLUSION: 1. Active hemorrhage from distal right lateral sacral and iliolumbar branches successfully coil and Gelfoam embolized, as above. Juan Bhakta MD Abdomen/Pelvis CT 02/28/17 0000 Signed Impressions: Service Date/Time: Tuesday, February 28, 2017 06:51 - CONCLUSION: 1. The right retroperitoneal hematoma has increased in size, as above. There are 2 serpiginous arterially enhancing structures visualized, one in the right psoas muscle and another extending into the hematoma at the right iliac fossa. These could represent sites of continued active bleeding. 2. Stable moderate size left and small right pleural effusion with associated compressive atelectasis. 3. Stable small volume of free fluid in the abdomen and pelvis. There is also anasarca. The findings concerning the retroperitoneal hematoma were discussed with Dr. Aguiar via telephone at approximately 7: 10 AM on 02/28/2017. Angelo Allen MD Abdomen X-Ray 10/9/17 0000 Signed Impressions: Service Date/Time: Sunday, February 26, 2017 14:52 - CONCLUSION: 1. Nonobstructive bowel gas pattern. Juan Bhakta MD Upper Extremity Ultrasound 02/10/17 Signed Impressions: Service Date/Time: Friday, February 10, 2017 18:46 - CONCLUSION: Occlusive thrombus in the cephalic and basilic veins. Benjamin Person MD Lung Scan-V Nuclear Medicine 02/10/17 Signed Impressions: Service Date/Time: Friday, February 10, 2017 22:17 - CONCLUSION: Low probability pulmonary embolism. Candido Patton MD Head CT 02/10/17 Signed Impressions: Service Date/Time: Friday, February 10, 2017 23:51 - CONCLUSION: Negative noncontrast CT brain. Candido Patton MD Lumbar Puncture Fluoroscopy 02/01/17 Signed Impressions: Service Date/Time: January 09:35 - CONCLUSION: Uncomplicated fluoroscopically guided lumbar puncture. CSF was clear. Nabeel Peralta MD Head Magnetic Resonance Angiography 01/27/17 Signed Impressions: Service Date/Time: Friday, January 27, 2017 10:33 - CONCLUSION: No intracranial vascular abnormality is identified. There is no aneurysm visualized. Angelo Allen MD IVC Filter Placement X-Ray 01/25/17 Signed Impressions: Service Date/Time: January 10:29 - CONCLUSION: Uncomplicated inferior vena cava filter placement as above. Yung Fowler MD Thoracic Spine MRI 01/24/17 Signed Impressions: Service Date/Time: Tuesday, January 24, 2017 22:29 - CONCLUSION: 1. Mild degenerative spondylosis most prominently at T11-L1 with slight effacement of the anterior thecal sac and left lateral recess. No significant neural foraminal stenosis. 2. No acute fracture. Juan Bhakta MD Lumbar Spine MRI 01/23/17 Signed Impressions: Service Date/Time: Monday, January 23, 2017 17:01 - CONCLUSION: 1. At L4-5 is a broad-based disc protrusion with severe central canal and lateral recess stenosis and flattening of the exiting right L4 nerve root. 2. L5-S1 there is a disc protrusion and moderate stenosis with flattening of the exiting L5 nerve roots bilaterally. 3. At L3-4 there is a moderate to severe central stenosis and lateral recess stenosis with mild foraminal stenosis. 4. No acute fracture or spondylolisthesis. Trace Holloway MD Lower Extremity Ultrasound 01/23/17 Signed Impressions: Service Date/Time: Monday, January 23, 2017 09:53 - CONCLUSION: Bilateral focal lower extremity DVT involving the posterior tibial veins. Angelo Garrido MD Cervical Spine MRI 01/23/17 Signed Impressions: Service Date/Time: Monday, January 23, 2017 17:01 - CONCLUSION: 1. Multilevel cervical spine degenerative changes as above. 2. Mild degrees of spinal stenosis at C3/C4-C6/C7. No cord compression or cord signal abnormality. 3. Age indeterminate left paracentral/foraminal disc protrusion at C6/C7. 4. Multilevel foraminal stenosis, most severe on the left at C6/C7. Please see individual levels above. 5. No fracture or subluxation of the cervical spine. Angelo Garrido MD Brain MRI 01/23/17 Signed Impressions: Service Date/Time: Monday, January 23, 2017 17:01 - CONCLUSION: 1. No acute stroke or other acute intracranial abnormality demonstrated. 2. Moderate severity chronic white matter changes, nonspecific but most likely related to chronic small vessel disease. 3. Few scattered tiny lacunar infarcts of the brainstem. 4. Given the findings are not entirely specific, clinical evaluation for possible multiple sclerosis recommended. Angelo Garrido MD Knee X-Ray 01/22/[id number] Signed Impressions: Service Date/Time: Sunday, January 22, 2017 21:17 - CONCLUSION: 1. Evidence of moderate to large joint effusion. 2. No acute fracture or malalignment. 3. Mild 3 compartment osteoarthritic change. Benjamin Person MD Hip and Pelvis X-Ray [id number]/22/[id number] Signed Impressions: Service Date/Time: Sunday, January 22, 2017 21:10 - CONCLUSION: 1. Mild to moderate degenerative change of both hips with no acute fracture or malalignment. There is flattening and remodeling of the right humeral head. Benjamin Person MD Physical Exam GENERAL: Awake and alert, on T-piece, not in distress SKIN: Cool and dry. No generalized rash. Edematous in extremities EYES: [place] conjunctiva. No petechia or hemorrhage. EARS, NOSE AND THROAT: Nose without bleeding or purulent nasal discharge. Dry oral mucosa NECK: Trach site ok. CARDIOVASCULAR: Regular rate and rhythm. Soft heart sounds. No murmurs RESPIRATORY: Coarse BS bilaterally, decreased at bases. ABDOMEN: Soft, not tender, distended, PEG site ok. No guarding rectal tube in place with small amount of liquid stool EXTREMITIES: No clubbing, cyanosis. Edema jonathan. Dry dressing on R leg wounds NEUROLOGICAL: awake and following commands PSYCHIATRIC: Calm and cooperative LINE: Lines with no evidence of infection Assessment & Plan Remarks IMPRESSION New Sepsis (fever and leucocytosis), temps up again x 1, and WBC still elevated - resolved Aspiration Pneumonia in health care setting. Mucus plugs with atelectasis. - completed Zerbaxa; on Tobra nebs Leucocytosis, persistent, but decreasing ESBL in urine in recent past. 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 PNA, ?plugging/atelctasis - MDR, I to Zerbaxa, has been tolerating T-piece - likely effusion adding to his respiratory problems, on top of his plugging /secretions Large R retroperitoneal bleed, S/P multiple transfusions and S/P coiling of bleeders Anemia, due to bleed, retroperitoneal MSSA sepsis, due to suppurative thrombophlebitis LUE, S/P I and D and excision of portion of cephalic vein - S/P Rx Respiratory failure, has had several intubations - reintubated again 02/28, extubated 03/11 - reintubated again - S/P trach 03/14 Rx 7 days high dose solumedrol for transverse myelitis Wu LE DVT has IVC filter placed 01/25 - ?hypercoagulable state Chronic kidney disease, worsening creatinine - shock and compression of ureter by hematoma Known DM, HTN Diarrhea, ? C.diff - invalid result, needs to be repeated RECOMMENDATION Continue Tobra nebs, will give 14 days Also on Diflucan, end date ordered Continue oral Vanco, end date ordered Follow temps Follow CBC Monitor progress Irene Edwards MD Apr 26, 2017 14:36
[2017-04-26] MEDS: CHLORHEXIDINE 0.12% (ORAL KIT) 15 ML CUP MT SCH ×2 (16:30→20:00)
[2017-04-26] MEDS: COLLAGENASE OINT 30 GM TUBE TOPICAL SCH (16:38)
[2017-04-26] MEDS: FLUCONAZOLE 100 MG TAB PO SCH (16:45)
--- NOTE | 2017-04-26 19:30 | HHI.CCPN ---
Subjective Remarks/Hospital Course Date of admission: 01/22 Date of critical care medicine consult 02/10 due to acute hypoxemic respiratory failure requiring emergent intubation 62-year-old male with a past medical history of hypertension, hyperlipidemia, diabetes mellitus, gout, uric acid kidney stones, kidney disease of unknown stage who originally presented to [facility] emergency department on 01/22 after a fall in which he sustained a right distal ulna fracture. He had been experiencing a gradual primarily lower extremity weakness as well as upper extremity weakness that was progressive. Neurology consult was obtained. MRI revealed no acute stroke. He had multifocal white matter changes. Tiny lacunar infarcts of the brainstem. Lumbar MRI report states L4-L5 disc protrusion with cetnral canal stenosis. Dr. Blackwell evaluated and states no cord compression on MRI C/T spine and recommended nonoperative management. Symptoms were felt to be consistent with transverse myelitis and he underwent Solumedrol 250 mg IV q6 hours 01/27-02/02. He also was found to have occlusive thrombus in the bilateral posterior tibial veins. Heparin was being avoided because he had traumatic lumbar puncture on 01/26 and 02/01. IVC filter was placed 01/25. He was undergoing physical therapy, reportedly making some improvements with plan to eventually discharged home with his son (max assist standing, and bed to chair per PT note). Apparently he had some vomiting the evening of 02/09 and additional vomiting on 02/10. He had a fever 102.8 on 02/09. Last recorded bowel movement was 02/03. Tonight he had acute onset of severe hypoxemia and respiratory distress. [facility] called and he was brought emergently to [facility] where his sats were 64% on 100% nonrebreather with mean arterial pressure 44. He was emergently intubated, CVL and art line placed. He is in septic shock. SUBJ: 02/11: Patient remains intubated sedated, critically ill. FiO2 reduced to 80% after increasing PEEP to 12. In severe septic shock Levophed at 16 mcg/m, vasopressin at 0.04 international units. D/W vascular surgery Dr. Enciso. He performed bedside Left upper extremity incision and debridement and excision of septic cephalic vein. 02/12: Remains intubated sedated profoundly septic, in shock on vasopressin and 7 mcg/min Levophed. FiO2 has improved to 45%, WBC count remains elevated with 20 ,000 white count significant left shift. Slight improvement in creatinine 2.9 urine output 750 ml 24 hours. 2-D echo shows LV ejection fraction 20-25%, no vegetation reported. Blood cultures 4 staph aureus. Wound culture pending 02/13: Remains critically ill but stable to improving. WBC count is down to 16, creatinine improving to 2.36. Off all pressors. Urine output also improving. 1.5L in 24 hours 02/14: Extubated 02/13. Tolerating well. WBC now down to 12.8. Creat improving 2.3 to 2. UO 3.4L. remains off all pressors. Was started on Precedex yesterday night for agitation, currently on 0.5 g per KG per hour. Chest x-ray shows left more than right air space disease 02/20/17 Re consult: 62-year-old male who was originally admitted for lower extremity weakness and found to have what was thought to be possible transverse myelitis. His hospital course his included a healthcare associated pneumonia, septic thrombophlebitis, DVT. He was most recently in the hospital floor where he had significant nausea and vomiting and diarrhea. His C. difficile test was recently negative. However, he has experienced worsening acute on chronic renal failure, hypotension, tachycardia, and severe hypoxemia. He did have a bout of vomiting earlier today, and his hospitalist attending suspects that he may have aspirated. He arrives by rapid response to the ICU with a nonrebreather in place in severe respiratory distress with SPO2 of 85%. I emergently intubate the patient, see separate procedure note for details. At this point the patient was hypotensive and tachycardic. He does have a history of an EF of 20%, however clinically he appears in florid septic shock. I placed central line and arterial line started vasopressors and gentle IV fluid resuscitation with 1 L of LR. Patient today was empirically broadened to vancomycin and Zosyn from his oxacillin which was initially treating MSSA bacteremia. He is recultured. Critical-care medicine is consulted to evaluate and manage his worsening multiorgan system failure and decompensated septic shock 02/21: Patient remains intubated sedated. Becomes anxious tachypnea on sedation lightening. Chest x-ray shows mild left lower lobe infiltrate. WBC count is slightly improved today from 23.2 t0 21. C Diff negative. UO adequate, creat slightly worsening. 1.57 today 02/22: Remains intubated sedated tolerated CPAP yesterday, plan is for EGD/ Colonscopy. WBC count back to normal. UO adequate. Creat stable 02/23: Tolerating CPAP trials following commands. Will do a spontaneous breathing trials. Status post EGD colonoscopy yesterday -Gastritis, esophagitis. Diverticulosis and multiple polyps. Urine output adequate but creatinine increasing to 1.7 with patient requiring multiple straight catheterization. We'll reinsert Sloan. 02/24: Breathing comfortably 24 hours after extubation. Protects airway well. 02/25: Excoriate bottom, will place rectal FMS. Start pureed diet. 02/26: Afebrile. Complaining of nausea and vomiting this afternoon. Increased stool output. Continue potassium replacement today. 02/27: 10 PM overnight, acutely hypotensive. Received 3 units PRBCs. Antibiotic coverage broadened to piperacillin/tazobactam, cortisol and 1 dose of vancomycin. Oxacillin drip currently on hold. Symptomatically, patient continues to vague abdominal pain/nausea vomiting which is unchanged for the past several days. Lipase elevated yesterday. Lactic acid normal. Troponin normal. Urinary retention after removal of Sloan. Straight catheter 1300. Cc 02/28: New diagnosis large retroperitoneal hematoma. Received 10 PRBC, 14 FFP, 2 platelets, 1 cryo-, 6 g calcium chloride, 2 is magnesium sulfate and 4 mg Bumex. CTA abdomen revealed possible arterial bleeds iliac, lumbar. Patient is currently on norepinephrine and epinephrine drips and possible need right nephrostomy tube placement due to large hematoma compressing ureter. Intra-abdominal bladder pressures are currently 13 03/01: Afebrile. Received 25 g albumin and 1 unit PRBCs overnight. Intra- abdominal bladder pressures currently 19. Currently on 3 micrograms per minute of norepinephrine. Ebdti-yn-eqlj 1 out of 4 on 4 mics grams per kilogram per minute of cisatracurium. 03/02: Slightly hypothermic overnight. Hemoglobin appears to have stabilized. Troponin bump overnight likely secondary to demand ischemia from hypotension. Hemodynamically stable off all vasopressors. 03/03: Received 1 PRBCs overnight. 3 units currently. Off all vasopressors. Likely rebleeding. Stool is dark. 03/04: Remains unstable. Ventilator dependent. 03/05: afebrile. hgb stable. 03/06: bumex drip started overnight. good uop after bumex initiated. still grossly volume overloaded. Cr downtrending. more awake with transition to propofol. still too volume overloaded to tolerate extubation. hgb stable. 03/07: Afebrile. Tolerating tube feeds at goal with Nepro. Positive BM. On low-dose fentanyl and propofol drips. Potassium currently being replaced. 03/08: Eyes will open on ventilator. Afebrile. Tolerating tube feeding. Failed PSV trial yesterday due to apnea. 03/09: Following commands. Tmax 101. Tolerating tube feeding. One hour PSV trial yesterday. Currently tolerating well so far today 1.5 hours 03/10: Low-grade temperatures. Tolerating PSV trial 10 hours yesterday. Currently at 5/5 at 35%. We'll probably attempt extubation a.m. after hemodialysis. 03/11: Extubated currently in 4 L nasal cannula. Thick secretions thick clear with cough. Currently afebrile. Tolerating diet previously. 03/12: Sleepy this morning but arouses. Following commands. Refusing diet at the present time. On 2 L nasal cannula. 03/13: Patient reintubated last night for worsening respiratory status. Currently sedated on mechanical ventilation. Became hypotensive following intubation and is on Levophed 20 mics per minute. 03/14: Sedated, orally intubated on mech vent at the time of my evaluation this AM, subsequently underwent perc trach placement. Remains on levophed for pressor support. Transfused 1 unit PRBCs today. Persisten 03/15: Trach site clean, dry. CXR with bilateral basilar infiltrates. 03/16: Pulmonary congestion persists. Clinical condition not improving. Prognosis becoming increasingly bleak. 03/17: Glucose intolerance worse. No improvement in neurological function. 03/18: Remains on mechanical ventilation via tracheostomy. Off pressors now. Neurologic status remains poor. 03/19: Drowsy, encephalopathic, arousable. On mechanical ventilation via tracheostomy. Levemir increased for hyperglycemia today. Remains off pressors 03/20: More awake, moves both upper extremities. On mechanical ventilation via tracheostomy. Daily C Pap trials ongoing. 03/21: Awake and alert. On mechanical ventilation via tracheostomy. Opens and closes eyes on command. 03/22: Awake and alert. Tolerated T PIECE for 7 hours yesterday. Dialyzed today. 03/23: Currently on T piece trial. Status post dialysis yesterday on 3 L. Awake and alert. Wants to eat. Subjective 03/24: Currently afebrile. Hemodialysis catheter discontinued yesterday from left IJ. Persistent leukocytosis noted. Potassium will be replaced. Furosemide 40 mg twice a day IV to 20 mg IV twice a day 03/25: WBC count unchanged. Patient on T piece with humidified air greater than 48 hours, tolerating it well. Reconsulted 04/12: The patient was transferred emergently from the floor/ [facility]. Patient was initially seen by direct casting operator Dr. Estrada, and the patient was noted to be tachypneic on T piece of 40%. ABGs were performed which showed a PaO2 of 60 on T piece of FiO2 of 40%. Chest x-ray was performed which showed loss of entire left hemidiaphragm fitness assistant consolidation in the left lower lobe. Concern for mucus plugging versus fluid. The patient was transferred emergently to [facility] placed on a ventilator CT of the chest is pending. Upon arrival in the room the patient is alert and oriented, mouthing words, nodding head to yes and no questions O2 sat is 100% but patient is currently on mechanical ventilation. Currently in no respiratory distress. 04/13: Tmax 99.8. The patient's oxygen requirements have decreased currently FiO2 35% with a PaO2 1 blood gas of 85, O2 saturation 100%. No respiratory distress noted. Patient underwent CT of the chest yesterday noted pleural effusions left greater than right, diagnostic/and therapeutic CT thoracentesis plan for this a.m.. 04/14: Patient underwent CT-guided thoracentesis of the right side with approximately 600 cc withdrawn. Today direct casting operator Dr. LABOY in and up size indwelling 6.0 Shiley to a 8.0 Shiley. Minimal bleeding noted around the site. X-ray improving. Patient started on CPAP trials today, as well as tube feeds were initiated. 04/15: Placed on T piece this morning via tracheostomy. Appears to be tolerating it. Laying in bed not in any acute distress. 04/16: Awake and alert. Tolerating T piece. Tolerating PEG feeds. 04/17: Awake and alert. Tolerating T piece. Tolerating tube feeds via PEG 04/18: Awake and alert. Tolerating TPs. Tolerating tube feeds. Passed swallow eval 04/19: Awake and alert. Remains on T piece. Wants to move out of ICU as he indicates to me once again as he has for the past few days. Awaiting [facility]IC bed 04/20: Awake and alert. Remains on T piece. Developed hypotension last night for which she was transiently on Levophed however has been off since early this morning. ID adjusting antibiotics and working up for new sepsis. 04/21: Awake and alert. On T piece. Awaiting [facility]IC bed for the last few days. 04/22: Awake and alert. Remains on T piece. Received 500 cc normal saline this morning for tachycardia. 04/23 No events overnight. Remains on TP's with 35% FIO2. Afebrile. 04/24: Resting comfortably. Got short of breath with Passy-Rafy valve which was taken off. 04/25: Remains on T piece. Awaiting transfer out of ICU. 04/26: Remains on T piece. Still awaiting transfer out of ICU since 04/17. Objective Vital Signs Date Time Temp Pulse Resp B/P (MAP) Pulse Ox O2 Delivery O2 Flow Rate FiO2 04/26/17 08:18 95 T-piece 50 04/26/17 08:00 98.6 107 30 92/53 (66) 04/25/17 20:31 6.00 Intake and Output 04/26/17 04/26/17 04/27/17 08:00 16:00 00:00 Intake Total 1515 ml Output Total 950 ml Balance 565 ml Result Diagram: 04/26/17 0650 04/26/17 0650 Other Results Microbiology Date/Time Source Procedure Growth Status 04/24/17 12:55 Urine Catheterized Urine Urine Culture - Final NO GROWTH IN 48 HOURS. Complete Imaging Last Impressions Chest X-Ray 04/17/17 0000 Signed Impressions: Service Date/Time: Monday, April 17, 2017 03:40 - CONCLUSION: Mild left effusion and possible accompanying atelectasis or consolidation at the left base Angelo Manzo MD Thoracentesis 04/13/17 1054 Signed Impressions: Service Date/Time: Thursday, April 13, 2017 15:26 - CONCLUSION: Uncomplicated CT-guided right thoracentesis. Candido Mendoza Jr., MD Chest CT 04/12/17 1558 Signed Impressions: Service Date/Time: March 17:51 - CONCLUSION: 1. Slight increase in size of bilateral effusions and basilar atelectasis, left greater than right compared with February 27. Tracheostomy in good position. Trcae Holloway MD Renal Ultrasound 04/02/17 0000 Signed Impressions: Service Date/Time: Sunday, April 02, 2017 16:59 - CONCLUSION: Limited exam with the left kidney being unable to be evaluated in the bladder not distended. There do appear to be multiple shadowing stones at the right kidney without hydronephrosis. Angelo Manzo MD Wrist X-Ray 03/27/17 0000 Signed Impressions: Service Date/Time: Monday, March 27, 2017 13:21 - CONCLUSION: 1. No acute fracture is identified. A portion of the previously documented distal ulna fracture remains visualized. 2. 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 Angelo Allen MD Aortography 02/28/17 0000 Signed Impressions: Service Date/Time: Tuesday, February 28, 2017 08:01 - CONCLUSION: 1. Active hemorrhage from distal right lateral sacral and iliolumbar branches successfully coil and Gelfoam embolized, as above. Juan Bhakta MD Abdomen/Pelvis CT 02/28/17 0000 Signed Impressions: Service Date/Time: Tuesday, February 28, 2017 06:51 - CONCLUSION: 1. The right retroperitoneal hematoma has increased in size, as above. There are 2 serpiginous arterially enhancing structures visualized, one in the right psoas muscle and another extending into the hematoma at the right iliac fossa. These could represent sites of continued active bleeding. 2. Stable moderate size left and small right pleural effusion with associated compressive atelectasis. 3. Stable small volume of free fluid in the abdomen and pelvis. There is also anasarca. The findings concerning the retroperitoneal hematoma were discussed with Dr. Aguiar via telephone at approximately 7: 10 AM on 02/28/2017. Angelo Allen MD Abdomen X-Ray 02/26/17 0000 Signed Impressions: Service Date/Time: Sunday, February 26, 2017 14:52 - CONCLUSION: 1. Nonobstructive bowel gas pattern. Juan Bhakta MD Upper Extremity Ultrasound 02/10/17 Signed Impressions: Service Date/Time: Friday, February 10, 2017 18:46 - CONCLUSION: Occlusive thrombus in the cephalic and basilic veins. Benjamin Person MD Lung Scan-V Nuclear Medicine 02/10/17 Signed Impressions: Service Date/Time: Friday, February 10, 2017 22:17 - CONCLUSION: Low probability pulmonary embolism. Candido Patton MD Head CT 02/10/17 Signed Impressions: Service Date/Time: Friday, February 10, 2017 23:51 - CONCLUSION: Negative noncontrast CT brain. Candido Patton MD Lumbar Puncture Fluoroscopy 02/01/17 Signed Impressions: Service Date/Time: January 09:35 - CONCLUSION: Uncomplicated fluoroscopically guided lumbar puncture. CSF was clear. Nabeel Peralta MD Head Magnetic Resonance Angiography 01/27/17 Signed Impressions: Service Date/Time: Friday, January 27, 2017 10:33 - CONCLUSION: No intracranial vascular abnormality is identified. There is no aneurysm visualized. Angelo Allen MD IVC Filter Placement X-Ray 01/25/17 Signed Impressions: Service Date/Time: January 10:29 - CONCLUSION: Uncomplicated inferior vena cava filter placement as above. Yung Fowler MD Thoracic Spine MRI 01/24/17 0000 Signed Impressions: Service Date/Time: Tuesday, January 24, 2017 22:29 - CONCLUSION: 1. Mild degenerative spondylosis most prominently at T11-L1 with slight effacement of the anterior thecal sac and left lateral recess. No significant neural foraminal stenosis. 2. No acute fracture. Juan Bhakta MD Lumbar Spine MRI 01/23/17 Signed Impressions: Service Date/Time: Monday, January 23, 2017 17:01 - CONCLUSION: 1. At L4-5 is a broad-based disc protrusion with severe central canal and lateral recess stenosis and flattening of the exiting right L4 nerve root. 2. L5-S1 there is a disc protrusion and moderate stenosis with flattening of the exiting L5 nerve roots bilaterally. 3. At L3-4 there is a moderate to severe central stenosis and lateral recess stenosis with mild foraminal stenosis. 4. No acute fracture or spondylolisthesis. Trace Holloway MD Lower Extremity Ultrasound 01/23/17 Signed Impressions: Service Date/Time: Monday, January 23, 2017 09:53 - CONCLUSION: Bilateral focal lower extremity DVT involving the posterior tibial veins. Angelo Garrido MD Cervical Spine MRI 01/23/17 Signed Impressions: Service Date/Time: Monday, January 23, 2017 17:01 - CONCLUSION: 1. Multilevel cervical spine degenerative changes as above. 2. Mild degrees of spinal stenosis at C3/C4-C6/C7. No cord compression or cord signal abnormality. 3. Age indeterminate left paracentral/foraminal disc protrusion at C6/C7. 4. Multilevel foraminal stenosis, most severe on the left at C6/C7. Please see individual levels above. 5. No fracture or subluxation of the cervical spine. Angelo Garrido MD Brain MRI 01/23/17 Signed Impressions: Service Date/Time: Monday, January 23, 2017 17:01 - CONCLUSION: 1. No acute stroke or other acute intracranial abnormality demonstrated. 2. Moderate severity chronic white matter changes, nonspecific but most likely related to chronic small vessel disease. 3. Few scattered tiny lacunar infarcts of the brainstem. 4. Given the findings are not entirely specific, clinical evaluation for possible multiple sclerosis recommended. Angelo Garrido MD Knee X-Ray 01/22/[id number] Signed Impressions: Service Date/Time: Sunday, January 22, 2017 21:17 - CONCLUSION: 1. Evidence of moderate to large joint effusion. 2. No acute fracture or malalignment. 3. Mild 3 compartment osteoarthritic change. Benjamin Person MD Hip and Pelvis X-Ray [id number]/22/[id number] Signed Impressions: Service Date/Time: Sunday, January 22, 2017 21:10 - CONCLUSION: 1. Mild to moderate degenerative change of both hips with no acute fracture or malalignment. There is flattening and remodeling of the right humeral head. Benjamin Person MD Objective Remarks GENERAL: 62-year-old male, resting in bed, on T piece, in no apparent distress nodding head to yes and no questions HEENT: Normocephalic. Atraumatic. Pupils equal, round, reactive. NECK: Tracheostomy in place, around trach site erythematous, yellowish drainage CHEST: On T piece, air entry decreased bilaterally . Scattered rhonchi, no wheezing CARDIOVASCULAR: S1-S2 regular, no gallop or murmur ABDOMEN distended. No rigidity. Umbilical hernia is reducible. No guarding. PEG tube in place : Positive scrotal edema Sloan in situ MUSCULOSKELETAL: Pulses 2+. 1+ bilateral upper and lower extremity edema. NEUROLOGICAL: Awake and alert, has spontaneous eye opening. Opens and closes eyes on command. Moves 4 limbs weakly to stimulation. Procedures 01/25/2017- Retrievable IVC Filter placement 01/26/17-lumbar puncture with fluoroscopy-by interventional radiology 02/01/17- lumbar puncture fluoroscopy by interventional radiology 02/10/17- Endotracheal Intubation 02/10/17-left IJ central venous line placed 02/10/17-left femoral arterial line placed 02/11/17-Diagnostic and therapeutic bronchoscopy with bronchoalveolar lavage 02/11/17-Left upper extremity incision and debridement with excision of septic cephalic vein 02/13/17- Extubated 02/20/17- endotracheal intubation 02/20/17- Left subclavian central line placement 02/20/17-Right radial A-line placement 02/22/17-EGD/colonoscopy 02/28/17-right radial a line 02/28/17- Endotracheal intubation 02/28/17- right sided introducer catheter placement 02/28/17- Right IJ central line placement 02/28/17-Right chest tube placement 02/28/17- Embolization of inferior and superior sacral branches of right internal iliac artery 03/01/17- Hemodialysis access catheter 03/03/17-Right IJ central line placement 03/11/17-Extubated 03/13/17- Endotracheal intubation 03/14/17-Tracheostomy placement, trach downsized to 6.0 Anni 03/30/17 03/15/17-PEG tube placement 04/11/17-CT Chest 04/13/17-thoracentesis right 600 cc removed Date of Insertion: Feb 20, 2017 Date of Insertion: Mar 03, 2017 Line: Central Venous Catheter Side: Right Location: Internal, Jugular A/P Problem List: (1) Septic shock ICD Code: A41.9 - Sepsis, unspecified organism; R65.21 - Severe sepsis with septic shock Status: Acute (2) Acute respiratory failure ICD Code: J96.00 - Acute respiratory failure, unspecified whether with hypoxia or hypercapnia Status: Acute (3) Thrombophlebitis arm ICD Code: I80.8 - Phlebitis and thrombophlebitis of other sites (4) Aspiration pneumonia ICD Code: J69.0 - Pneumonitis due to inhalation of food and vomit Status: Acute (5) Atelectasis of left lung ICD Code: J98.11 - Atelectasis Status: Acute (6) Quadriparesis ICD Code: G82.50 - Quadriplegia, unspecified Status: Acute (7) DVT (deep venous thrombosis) ICD Code: I82.409 - Acute embolism and thrombosis of unspecified deep veins of unspecified lower extremity (8) Altered mental status ICD Code: R41.82 - Altered mental status, unspecified Status: Acute (9) CKD (chronic kidney disease) stage 3, GFR 30-59 ml/min ICD Code: N18.3 - Chronic kidney disease, stage 3 (moderate) Status: Chronic (10) Acute renal failure ICD Code: N17.9 - Acute kidney failure, unspecified Status: Acute (11) Diabetes mellitus ICD Code: E11.9 - Type 2 diabetes mellitus without complications Status: Chronic (12) Distal end of ulna fracture, closed ICD Code: S52.609A - Unspecified fracture of lower end of unspecified ulna, initial encounter for closed fracture Status: Acute (13) Gout ICD Code: M10.9 - Gout, unspecified Status: Chronic Assessment and Plan Assessment: NEURO/PSYCH: Acute metabolic encephalopathy- persistent Quadriparesis secondary to suspected transverse myelitis Recurrent falls Suspected transverse myelitis. Received methylprednisolone 250 mg IV every 6 hours 01/27-02/02, started back on hydrocortisone 02/21/17, initially tapering to 50 mg IV every 8 hours starting received 1 dose at 2100 prior to becoming hypotensive. weaning hydrocortisone taper and stopped 03/09. Resumed hydrocortisone 50mg IV Q6hrly on 03/14 as patient became hypotensive following intubation on 03/13 requiring levophed. Continue Hydrocortisone 50 mg IV every 6 hours LP 01/26 and 02/01. CSF culture negative 01/26, 02/01 Oligoclonal bands negative. CSF/serum IgG index is not elevated. VDRL nonreactive. Cryptococcal antigen negative. Brain MRI 01/23 no acute stroke. Few scattered lacunar infarcts of the brainstem. Moderate chronic white matter changes. MRI cervical/thoracic spine- mild spinal stenosis C3/C4 to C6/C7. No cord compression. RPR negative Neurology has been following, Dr. Crenshaw. Repeat CT brain 02/10 - negative Continue PT/OT Continue oxycodone 10 mg every 4 hours scheduled RESP: Acute hypoxemic respiratory failure Healthcare associated pneumonia/Aspiration Pneumonia S/P Right-sided chest tube 02/28 Off mechanical ventilation, vent bundle, tolerating T piece. -On T piece >48 hours. Humidified room air Albuterol/ipratropium aerosols every 6 hours with albuterol aerosols every 2 hours prn VQ scan 02/10 low probability for PE. CT chest 02/10 - left lower lobe collapse and consolidation. CT chest 02/27 revealed right greater than left pleural effusions. Extubated 02/23. Intubated 02/28. Extubated 03/11, Reintubated on 03/13. Right-sided chest tube placement 02/28 voltmeter operator, removed 03/05. Failed attempt to wean successfully due to volume overload and multiple organ failure. underwent perc tracheostomy 03/14. CT chest 04/12-slight increase and bilateral effusions left greater than right basilar atelectasis CXR 04/13-moderate pleural effusion left with consolidation of the left lung Pulmonology following Dr. Estrada - 04/13 CT guided thoracentesis scheduled emergently as discussed with Dr. Estrada - 600cc removed (right) 04/14-tracheostomy up sized to 8.0 [place] by direct casting operator Dr. Estrada at bedside CV: Severe sepsis - resolved. Systolic heart failure likely chronic with ejection fraction 20-25% Hyperlipidemia History of hypertension Mild TR Sinus tachycardia Elevated troponin likely type II demand ischemia Monitor HR and BP keep MAP>65mmHg As needed Nitropaste, labetalol and hydralazine for hypertension Atorvastatin 10 mg by mouth daily for dyslipidemia. Troponin 0.[address]-T changes. 2-D echocardiogram 01/11 revealed EF 20-25%. Mild TR. Pulmonary arterial pressures were normal around 20 GI: Large right retroperitoneal hematoma Erosive esophagitis Adematous/hyperplastic colon polyps Severe acute protein calorie malnutrition Nausea/vomiting - resolved. Diarrhea Gastritis Diverticulosis Internal and external hemorrhoids Hiatal hernia Elevated lipase Continue tube feeds- on Glucerna 1.5 @65ml/hr 02/27 CT chest/abdomen and pelvis - 9.4 x 7.5 renal and 16 x 12 cm right psoas muscle hematoma. Fluid around liver and spleen. Right-sided nephrolithiasis CTA abdomen 02/28 - possible blushing around iliac/lumbar vessels Discussed with IR. s/p attempted embolization CT abdomen and pelvis 02/10 atrophic left kidney. Bilateral inguinal hernias fat- containing. Nonobstructing 12 mm right kidney stone repeat CT abd/pelvis did not show evidence of obstruction. patient clinically has been having diarrhea (c. diff negative 02/19). also with nausea/vomiting of unclear etiology. EGD/Colonoscopy-02/22/17 showed gastritis esophagitis, hiatal hernia, diverticulosis and multiple polyps in descending colon and sigmoid which were snared biopsied. 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 Recommended nephrostomy tube if obstruction Nephrology consulted, off hemodialysis. Making urine. ICU electrolyte replacement protocol Last IHD was 03/22 ID: Septic shock- resolved. Abscess and Suppurative thrombophlebitis left upper extremity MSSA bacteremia Klebsiella UTI ESBL positive Acute aspiration pneumonia/HCAP Previously treated with Bactrim, ertapenem, intermittent vancomycin, nafcillin Blood cultures 2, UA ESBL positive Klebsiella UTI Sputum 03/14 - Pseudomonas came back resistant to imipenem, Stenotrophomonas maltophilia Antibiotics per ID. on Tobra nebs, PO Vanco and Diflucan. Meropenem discontinued on 04/23. ID-Dr. Edwards. HEME: Acute blood loss anemia DVT, bilateral posterior tibial vein, IVC filter Septic thrombophlebitis with occlusive thrombus mid cephalic and basilic vein side Monitor CBC Received 10 PRBC, 14 FFP, 2 platelets, 1 cryo-02/28 Received 3 units PRBCs Ultrasound 01/23/17 - Bilateral lower extremity with occlusive posterior tibial vein DVTs. Heparin was initially started for DVT but was placed on hold due to LP with suspected traumatic tap. Currently holding full anticoagulation with enoxaparin 100 mg IV twice a day due to anemia as of 02/26 IVC filter was placed 01/25/17. Ultrasound LUE 02/10 occlusive thrombus mid cephalic vein, basilic vein.s. Transfuse 3 units PRBCs 02/27 Transfuse 2 units PRBCs 03/01. Transfused 1 unit PRBCs on 03/14 ENDO: Diabetes mellitus Hypoglycemia History of prior adrenal insufficiency with shock Gout EGD colonoscopy completed 02/22. gastritis and esophagitis, colon polyps On tape dose steroids- HC 10 mg by mouth every 12 hourly Accu-Cheks to maintain euglycemia Novulin R every 4 hours. Low Regimen Currently on insulin detemir 25 units twice a day for hyperglycemia MSK: Right distal ulna fracture. Recommended nonoperative management. PROPH: Lansoprazole 30 mg twice a day twice a day for stress ulcer prophylaxis. Has IVC filter. Therapeutic enoxaparin was placed on hold for retroperitoneal hematoma ACCESS: right IJ CVL placed 03/03-03/20. A left IJ hemodialysis catheter placed 03/01 - 03/23. Left femoral A line placed 03/14 - discontinued 03/19 Dispo: Discussed with [facility] at bedside Patient waiting for transfer out of ICU since 04/17. Consult placed to hospitalist service on 04/17. Hospitalist service to take over patient care when patient transferred out of ICU. Problem Qualifiers (1) Aspiration pneumonia: (2) DVT (deep venous thrombosis): Qualified Codes: I82.443 - Acute embolism and thrombosis of tibial vein, bilateral (3) Acute renal failure: Qualified Codes: N17.9 - Acute kidney failure, unspecified (4) Diabetes mellitus: (5) Gout: Devin Puente MD Apr 26, 2017 19:30
[2017-04-26] MEDS ORDERED: ALBUMIN 5% INJ 500 ML IV ONE (20:45)
[2017-04-26] MEDS: ATORVASTATIN 10 MG TAB PO SCH (22:54)
[2017-04-26] MEDS: NOREPINEPHRINE 4 MG/D5W 250 ML IV PRN (23:00)
[2017-04-27] VITALS (29 sets, daily range): BP systolic 91–122; BP diastolic 52–72; PULSE 95–120; RESP 19–28; TEMP 95.9–100; O2SAT 96–99
--- NOTE | 2017-04-27 00:20 | RADRPT ---
EXAM DATE/TIME: 04/26/2017 23:35 [facility] COMPARISON: CHEST SINGLE AP, April 17, 2017, 3:40. INDICATIONS : Central line placement. MEDICAL HISTORY : Hypertension. Renal calculi. Arthritis. Apnea. Dyspnea. Renal disease. SURGICAL HISTORY : Bilateral uretheral stents, tracheostomy ENCOUNTER: Initial ACUITY: 1 day PAIN SCORE: Non-responsive. LOCATION: Bilateral chest FINDINGS: A right subclavian central venous catheter is noted and the tip overlies the SVC. Tracheostomy tube i dentified. Cardiomegaly, large left effusion and consolidation identified. Right lung is clear. Degen erative changes of the spine. CONCLUSION: Right central venous catheter placement. Worsening appearance of the chest. Cornel Harrison MD on April 27, 2017 at 0:18 Board Certified Radiologist. This report was verified electronically.
[2017-04-27 00:35] LABS: BLOOD GAS BASE EXCESS -4.6 mmol/L (-2-2); BLOOD GAS CARBOXYHEMOGLOBIN 1.5 % (0-4); BLOOD GAS HCO3 24 mmol/L (22-26); BLOOD GAS METHEMOGLOBIN 1.3 % (0-2); BLOOD GAS O2 HGB SATURATION 92 % (90-100); BLOOD GAS OXYGEN CONTENT 10.3 Vol % (12.0-20.0); BLOOD GAS PCO2 80 mmHg (38-42); BLOOD GAS PO2 87 mmHg (61-120); BLOOD GAS TOTAL HGB 7.9 G/DL (12.0-16.0); TEMP CORR TO 98.6
[2017-04-27 00:36] LABS: CRITICAL VALUE YES; DRAW SITE RT RADIAL; FIO2 100 %; LITER FLOW 6 L/M; NUMBER OF ARTERIAL PUNCTURES 1; OXYGEN DEVICE TPIECE; STAT YES; ULNAR PULSE Y
--- NOTE | 2017-04-27 02:03 | PD.PROCEDR ---
Procedure Note Procedure Centerline placement A time-out was completed verifying correct patient, procedure, site, positioning , and special equipment if applicable. The patient was placed in a dependent position appropriate for central line placement based on the vein to be cannulated. The patients right shoulder was prepped and draped in sterile fashion. 1% Lidocaine was used to anesthetize the surrounding skin area. A triple lumen 9-[place] Cordis catheter was introduced into the the right subclavian vein using the Seldinger technique. The catheter was threaded smoothly over the guide wire and appropriate blood return was obtained. Each lumen of the catheter was evacuated of air and flushed with sterile saline. The catheter was then sutured in place to the skin and a sterile dressing applied. Perfusion to the extremity distal to the point of catheter insertion was checked and found to be adequate. Estimated Blood Loss: 1ml The patient tolerated the procedure well and there were no complications. Ananth Odonnell MD Apr 27, 2017 02:03
[2017-04-27] MEDS: VANCOMYCIN 500 MG VIAL (FOR ORAL USE ONLY) PO SCH ×4 (02:11→19:43)
[2017-04-27] MEDS: oxyCODONE HCL ORAL CONC 5 MG/0.25 ML SYRINGE PO SCH ×6 (02:11→21:44)
[2017-04-27 05:00] LABS: BLOOD GAS BASE EXCESS -3.2 mmol/L (-2-2); BLOOD GAS CARBOXYHEMOGLOBIN 1.8 % (0-4); BLOOD GAS HCO3 22 mmol/L (22-26); BLOOD GAS METHEMOGLOBIN 1.2 % (0-2); BLOOD GAS O2 HGB SATURATION 95 % (90-100); BLOOD GAS OXYGEN CONTENT 12.2 Vol % (12.0-20.0); BLOOD GAS PCO2 41 mmHg (38-42); BLOOD GAS PO2 111 mmHg (61-120); BLOOD GAS TOTAL HGB 8.9 G/DL (12.0-16.0); CRITICAL VALUE NO; TEMP CORR TO 98.6
[2017-04-27 05:01] LABS: OXYGEN DEVICE VENTILATOR
[2017-04-27 05:02] LABS: DRAW SITE RT RADIAL; FIO2 50 %; NUMBER OF ARTERIAL PUNCTURES 1; STAT NO; ULNAR PULSE PRESENT
[2017-04-27] MEDS: HYDROCORTISONE 10 MG TAB PO SCH ×2 (06:10→16:48)
--- NOTE | 2017-04-27 06:35 | RADRPT ---
EXAM DATE/TIME: 04/27/2017 05:19 [facility] COMPARISON: CHEST SINGLE AP, April 26, 2017, 23:35. INDICATIONS : Evaluate for pneumonia- Respiratory failure MEDICAL HISTORY : Hypertension. Renal disease, end stage. SURGICAL HISTORY : Bilateral uretheral stents, tracheostomy ENCOUNTER: Subsequent ACUITY: 2 days PAIN SCORE: Non-responsive. LOCATION: Bilateral chest FINDINGS: There is improved aeration on the left. Patchy left lower lobe airspace disease and small left effusi on identified. Tracheostomy tube and cardiomegaly. Osseous structures are intact. Right subclavian li ne its S. retropositioned. CONCLUSION: Improved aeration. Cornel Harrison MD on April 27, 2017 at 6:34 Board Certified Radiologist. This report was verified electronically.
[2017-04-27] MEDS: INSULIN ASPART SUPPLEMENTAL SCALE SQ SCH ×3 (08:00→17:00)
[2017-04-27] MEDS: RESP: TOBRAMYCIN SULFATE 80 MG/2 ML NEB NEB SCH ×2 (08:04→20:11)
[2017-04-27 08:11] LABS: AUTOMATED NEUTROPHIL # 13.3 TH/MM3 (1.8-7.7); BASOPHIL # 0.1 TH/MM3 (0-0.2); BASOPHIL % 0.4 % (0.0-2.0); EOSINOPHIL # 1.4 TH/MM3 (0-0.4); EOSINOPHIL % 8.2 % (0.0-4.0); HEMATOCRIT 27.4 % (39.0-51.0); LYMPHOCYTE # 0.9 TH/MM3 (1.0-4.8); MEAN CELL VOLUME 86.6 FL (80.0-100.0); MEAN CORPUSCULAR HEMOGLOBIN 27.6 PG (27.0-34.0); MEAN CORPUSCULAR HGB CONC 31.9 % (32.0-36.0); MONO % 10.1 % (0.0-8.0); NEUT % 76.3 % (16.0-70.0); PLATELET COUNT 311 TH/MM3 (150-450); RED BLOOD COUNT 3.17 MIL/MM3 (4.50-5.90); RED CELL DISTRIBUTION WIDTH 16.9 % (11.6-17.2); WHITE BLOOD COUNT 17.5 TH/MM3 (4.0-11.0)
[2017-04-27 08:31] LABS: HEMO FLAGS AUTO DIFF
[2017-04-27 08:43] LABS: ALT (GPT) 8 U/L (12-78); ANION GAP 5 MEQ/L (5-15); AST (GOT) 33 U/L (15-37); BICARBONATE 25.1 MEQ/L (21.0-32.0); BLOOD UREA NITROGEN 52 MG/DL (7-18); CHLORIDE 114 MEQ/L (98-107); GLOMERULAR FILTRATION RATE 46 ML/MIN (>89); POTASSIUM 5.8 MEQ/L (3.5-5.1); SODIUM (NA) 144 MEQ/L (136-145)
[2017-04-27 08:45] LABS: ALKALINE PHOSPHATASE 137 U/L (45-117); TOTAL BILIRUBIN ADULT 0.5 MG/DL (0.2-1.0)
[2017-04-27] MEDS: CHLORHEXIDINE 0.12% (ORAL KIT) 15 ML CUP MT SCH ×2 (09:21→19:42)
[2017-04-27] MEDS: CHOLESTYRAMINE 4 GM PACKET G-TUBE SCH ×2 (09:22→19:42)
[2017-04-27] MEDS: SODIUM CHLORIDE 0.9% FLUSH 10 ML FLUSH IV FLUSH SCH ×3 (09:22→19:44)
[2017-04-27] MEDS: LANSOPRAZOLE SOLUTAB 30 MG TAB NG SCH ×2 (09:22→19:43)
[2017-04-27] MEDS: SODIUM CHLORIDE 0.9% FLUSH 10 ML FLUSH IV FLUSH PRN (09:22)
[2017-04-27] MEDS: LACTOBACILLUS ACIDOPHILUS TAB PO SCH ×3 (09:23→16:48)
[2017-04-27] MEDS: INSULIN DETEMIR 100 UNITS/ML VIAL SQ SCH (09:23)
[2017-04-27] MEDS: QUEtiapine FUMARATE 25 MG TAB PO SCH (09:23)
[2017-04-27] MEDS: TAMSULOSIN HCL 0.4 MG CAP PO SCH ×2 (09:23→19:43)
[2017-04-27] MEDS: COLLAGENASE OINT 30 GM TUBE TOPICAL SCH (09:24)
[2017-04-27] MEDS: NOREPINEPHRINE 4 MG/D5W 250 ML IV PRN (09:36)
[2017-04-27 10:06] LABS: BANDS 25 % (0-6); EOSINOPHILS 2 % (0-4); METAMYELOCYTES 8 % (0-1); MYELOCYTES 1 % (0-0); NEUTROPHIL # MANUAL DIFF 15.4 TH/MM3 (1.8-7.7); PLATELET ESTIMATE SMEAR NORMAL (NORMAL); PLATELET MORPHOLOGY CLUMPED (NORMAL); POLYS (SEG NEUTROPHILS) 54 % (16-70); SCAN/DIFF FINAL DIFF MANUAL; WBC DIFF SAMPLE 100
--- NOTE | 2017-04-27 10:20 | HHI.IDPN ---
Subjective Subjective Remarks Patient is a 62-year-old male, admitted to the hospital for evaluation of pain in his right wrist. He gave a history of falling about a week ago and apparently had immediate pain in the right wrist. He did not seek any medical attention initially because reportedly he was very busy. He eventually presented, and he was found to have a distal ulnar fracture on plain films. He also had some redness and swelling. Orthopedics saw the patient, and was being treated conservatively with the splint. During this hospitalization also he started complaining of generalized weakness but more so in his lower extremity than his upper extremity. He had swelling in both lower extremity which revealed evidence of DVT in the posterior tibial veins. Neurology had seen the patient and he underwent lumbar puncture which apparently was traumatic. Patient was therefore not given anticoagulation because of the traumatic LP, and he underwent placement of an IVC filter on January 25. Patient had another lumbar puncture on February 01. He was felt to have transverse myelitis, and he was given high-dose IV Solu-Medrol from January 27 to February 02. There was apparently some improvement in his weakness. The imaging studies done for his weakness showed some spinal stenosis, and neurosurgery was consult that and recommended that there was no surgical intervention to be done. Patient has been stabilizing, but last night apparently deteriorated, and he ended up getting intubated, and had significant hypotension requiring pressors. There was also an ultrasound done of his left upper extremity which showed DVT, and there was evidence of superior 2 thrombophlebitis. Vascular surgery was consult to it and he had IND on his left upper extremity. Patient has had some fevers since yesterday. 2 blood cultures were done yesterday and they're now reported as growing gram-positive cocci in [place] in clusters. He is currently sedated and intubated. He is on Levophed and vasopressin. A central line was placed as well as a femoral a line. He apparently had an IV in his left upper extremity and that was removed yesterday. Patient also has history of chronic kidney disease, and nephrology evaluated the patient. He was just being monitored for his renal insufficiency. Reconsulted 04/12 for low grade fever, leucocytosis, worsening CXR concern for new pneumonia. Notes reviewed Temps normal Back on the since last night On pressors Sedated WBC elevated, not worsening Last CXR improving Antibiotics Current Medications Diflucan Oral Vanco Tobra nebs Medications (Trade) Dose Ordered Sig/Rosalia Route Start Time Stop Time Status Last Admin (NS Flush) 2 ml UNSCH PRN IV FLUSH 01/23/17 00:30 04/27/17 09:22 (NS Flush) 2 ml BID IV FLUSH 01/23/17 09:00 04/27/17 09:22 (Zofran Inj) 4 mg Q6H PRN IVP 01/23/17 00:30 02/26/17 17:23 (Narcan Inj) 0.4 mg UNSCH PRN IV 01/23/17 00:30 (Edna-Colace) 1 tab BID PO 01/23/17 09:00 Future Hold 02/24/17 20:31 (Dulcolax Supp) 10 mg DAILY PRN RECTAL 01/23/17 00:30 (Lipitor) 10 mg HS PO 01/24/17 21:00 Future hold 04/26/17 22:54 (Glucagon Inj) 1 mg UNSCH PRN OTHER 02/11/17 05:45 02/18/17 18:53 (Flomax) 0.4 mg Q12HR PO 02/17/17 15:00 Future hold 04/27/17 09:23 (Lovenox Inj) 100 mg Q12H SQ 02/18/17 12:00 Future Hold 02/26/17 16:20 (Lactinex) 1 tab TID PO 02/19/17 13:00 04/27/17 09:23 (D50w (Vial) Inj) 25 ml UNSCH PRN IV PUSH 02/20/17 12:45 03/27/17 13:20 (Questran Light Pkt) 4 gm Q12HR PO 02/25/17 21:00 Future Hold 02/27/17 10:32 (Aldactone) 25 mg DAILY PO 02/27/17 09:00 Future Hold (Peridex 0.12% Liq) 15 ml BID@08,20 MT 02/28/17 08:00 04/27/17 09:21 (NS Flush) UNSCH PRN IV FLUSH 03/01/17 13:00 (Heparin Inj) UNSCH PRN IV FLUSH 03/01/17 13:00 (NS Flush) DAILY IV FLUSH 03/04/17 09:00 04/27/17 09:22 (NS Flush) UNSCH PRN IV FLUSH 03/03/17 18:45 (Prevacid Odt) 30 mg BID NG 03/07/17 21:00 04/27/17 09:22 (Tylenol 650 Mg/ 20 ml Liq) 650 mg Q6H PRN PO 03/09/17 10:15 04/19/17 21:02 (Tenormin) 25 mg Q12HR PO 03/12/17 10:00 Future Hold 04/18/17 10:09 (Epogen Inj) 10,000 units UNSCH PRN IV PUSH 03/17/17 11:30 03/22/17 10:52 (Nitroglycerin 2% Oint) 2 inch Q6H PRN TOPICAL 03/23/17 14:00 03/29/17 01:20 (Norvasc) 10 mg DAILY PO 03/28/17 09:00 Future Hold 04/19/17 08:16 (Roxicodone Intensol Liq) 5 mg Q4H PO 04/01/17 18:00 04/27/17 09:23 (NovoLOG SUPPLEMENTAL SCALE) 1 ACHS SLIDING SCALE SQ 04/02/17 12:00 04/26/17 22:53 (Levemir Inj) 10 units BID SQ 04/03/17 21:00 04/27/17 09:23 (NovoLOG INJ) 5 units TIDAC SQ 04/03/17 17:00 Future Hold 04/10/17 08:00 (Xanax) 0.125 mg Q6H PRN PO 04/03/17 22:30 04/25/17 14:27 (Pill Splitter) 1 ea UNSCH PRN OTHER 04/03/17 22:45 (Levsin Liq) 0.125 mg Q4H PRN G-TUBE 04/06/17 15:00 04/12/17 10:09 (Questran 4 Gm Pkt) 4 gm Q12HR G-TUBE 04/08/17 21:00 04/27/17 09:22 (SEROquel) 25 mg DAILY PO 04/09/17 09:00 04/27/17 09:23 (Santyl Oint) 1 applic DAILY TOPICAL 04/10/17 09:00 04/27/17 09:24 (Cortef) 10 mg Q12H PO 04/10/17 18:00 04/27/17 06:10 (Lasix Inj) 40 mg BID@09,18 IV PUSH 04/12/17 18:00 Future Hold 04/19/17 17:15 (Duoneb Neb) 1 ampule Q2HR NEB PRN NEB 04/12/17 17:00 04/24/17 09:45 (Tobramycin Neb) 80 mg Q12HR NEB NEB 04/16/17 09:15 04/30/17 23:00 04/27/17 08:04 (Diflucan) 100 mg Q24H PO 04/20/17 15:00 04/29/17 23:00 04/26/17 16:45 (VANCOMYCIN for oral use only) 125 mg Q6H PO 04/21/17 21:00 05/01/17 23:00 04/27/17 09:23 (Lopressor Inj) 2.5 mg Q6H PRN IV PUSH 04/23/17 01:15 04/23/17 09:36 Norepinephrine Bitartrate 250 ml @ 37.5 mls/hr TITRATE PRN IV 04/27/17 03:15 04/27/17 09:36 Lines Central line - 04/27 Past Medical History Reviewed Allergies: Coded Allergies: levofloxacin (Verified Allergy, Severe, 01/22/17) Objective . Vital Signs Date Time Temp Pulse Resp B/P (MAP) Pulse Ox O2 Delivery O2 Flow Rate FiO2 04/27/17 09:36 112 97/59 04/27/17 09:34 114 97/59 04/27/17 08:04 99 50 04/27/17 07:00 99 Mechanical Ventilator 50 04/27/17 06:00 118 04/27/17 06:00 116 88/50 04/27/17 05:00 115 125/68 04/27/17 04:27 97 50 04/27/17 04:00 50 04/27/17 04:00 115 04/27/17 04:00 98.7 115 22 101/62 (75) 98 04/27/17 04:00 115 101/62 04/27/17 03:30 98.7 114 19 100/59 99 04/27/17 03:15 112 101/59 04/27/17 02:00 107 104/63 04/27/17 02:00 104 04/27/17 01:46 98 50 04/27/17 01:44 96.3 104 21 101/62 99 04/27/17 01:41 96.0 105 21 107/65 99 04/27/17 01:15 101 109/65 04/27/17 01:00 101 116/71 04/27/17 00:45 99 116/73 04/27/17 00:30 97 121/73 04/27/17 00:27 98 22 122/72 97 04/27/17 00:15 96 122/72 04/27/17 00:00 95 04/27/17 00:00 50 04/27/17 00:00 95 119/68 04/27/17 00:00 95.9 95 21 119/68 (85) 96 04/26/17 23:53 95 24 97/57 92 04/26/17 23:45 96 95/59 04/26/17 23:30 50 04/26/17 23:30 95 Mechanical Ventilator 50 04/26/17 23:30 96 50 04/26/17 23:30 87 78/49 04/26/17 23:15 95 80/50 04/26/17 23:00 57 71/36 04/26/17 22:00 93 04/26/17 20:22 93 T-piece 6.00 50 04/26/17 20:00 93 24 73/46 (55) 93 04/26/17 20:00 93 04/26/17 19:00 93 T-Piece 35 04/26/17 16:00 97.7 106 25 90/55 (67) 91 04/26/17 12:00 98.6 108 30 92/52 (65) 97 04/26/17 12:00 107 04/27/17 04/27/17 04/28/17 15:00 23:00 07:00 Intake Total 35 ml Balance 35 ml IV Total 35 ml . Laboratory Tests Test 04/26/17 06:50 04/27/17 07:30 White Blood Count 17.8 TH/MM3 17.5 TH/MM3 Red Blood Count 2.65 MIL/MM3 3.17 MIL/MM3 Hemoglobin 7.2 GM/DL 8.8 GM/DL Hematocrit 23.1 % 27.4 % Mean Corpuscular Volume 87.3 FL 86.6 FL Mean Corpuscular Hemoglobin 27.3 PG 27.6 PG Mean Corpuscular Hemoglobin Concent 31.3 % 31.9 % Red Cell Distribution Width 17.7 % 16.9 % Platelet Count 280 TH/MM3 311 TH/MM3 Mean Platelet Volume 8.2 FL 8.2 FL Neutrophils (%) (Auto) 73.1 % 76.3 % Lymphocytes (%) (Auto) 6.0 % 5.0 % Monocytes (%) (Auto) 10.0 % 10.1 % Eosinophils (%) (Auto) 10.5 % 8.2 % Basophils (%) (Auto) 0.4 % 0.4 % Neutrophils # (Auto) 13.0 TH/MM3 13.3 TH/MM3 Lymphocytes # (Auto) 1.1 TH/MM3 0.9 TH/MM3 Monocytes # (Auto) 1.8 TH/MM3 1.8 TH/MM3 Eosinophils # (Auto) 1.9 TH/MM3 1.4 TH/MM3 Basophils # (Auto) 0.1 TH/MM3 0.1 TH/MM3 CBC Comment AUTO DIFF AUTO DIFF Differential Total Cells Counted 100 100 Neutrophils % (Manual) 67 % 54 % Band Neutrophils % 11 % 25 % Lymphocytes % 3 % 5 % Monocytes % 6 % 5 % Eosinophils % 7 % 2 % Basophils % 1 % Neutrophils # (Manual) 14.8 TH/MM3 15.4 TH/MM3 Metamyelocytes 2 % 8 % Myelocytes 3 % 1 % Differential Comment FINAL DIFF MANUAL FINAL DIFF MANUAL Platelet Estimate NORMAL NORMAL Platelet Morphology Comment NORMAL CLUMPED Tear Drop Cells 1+ Ovalocytes 1+ Laboratory Tests Test 04/26/17 06:50 04/27/17 07:30 Blood Urea Nitrogen 42 MG/DL 52 MG/DL Creatinine 1.13 MG/DL 1.53 MG/DL Random Glucose 144 MG/DL 142 MG/DL Total Protein 5.2 GM/DL 5.5 GM/DL Albumin 1.8 GM/DL 1.9 GM/DL Calcium Level 10.0 MG/DL 10.1 MG/DL Alkaline Phosphatase 104 U/L 137 U/L Aspartate Amino Transf (AST/SGOT) 28 U/L 33 U/L Alanine Aminotransferase (ALT/SGPT) 8 U/L 8 U/L Total Bilirubin 0.3 MG/DL 0.5 MG/DL Sodium Level 145 MEQ/L 144 MEQ/L Potassium Level 5.3 MEQ/L 5.8 MEQ/L Chloride Level 115 MEQ/L 114 MEQ/L Carbon Dioxide Level 24.9 MEQ/L 25.1 MEQ/L Anion Gap 5 MEQ/L 5 MEQ/L Estimat Glomerular Filtration Rate 66 ML/MIN 46 ML/MIN Phosphorus Level 3.3 MG/DL Magnesium Level 2.0 MG/DL Microbiology Date/Time Source Procedure Growth Status 04/24/17 12:55 Urine Catheterized Urine Urine Culture - Final NO GROWTH IN 48 HOURS. Complete Imaging Chest X-Ray 04/27/17 0600 Signed Impressions: Service Date/Time: Thursday, April 27, 2017 05:19 - CONCLUSION: Improved aeration. Cornel Harrison MD Chest X-Ray 04/26/17 0000 Signed Impressions: Service Date/Time: April 23:35 - CONCLUSION: Right central venous catheter placement. Worsening appearance of the chest. Cornel Harrison MD Chest X-Ray 04/17/17 0000 Signed Impressions: Service Date/Time: Monday, April 17, 2017 03:40 - CONCLUSION: Mild left effusion and possible accompanying atelectasis or consolidation at the left base Angelo Manzo MD Thoracentesis 04/13/17 1054 Signed Impressions: Service Date/Time: Thursday, April 13, 2017 15:26 - CONCLUSION: Uncomplicated CT-guided right thoracentesis. Candido Mendoza Jr., MD Chest CT 04/12/17 1558 Signed Impressions: Service Date/Time: March 17:51 - CONCLUSION: 1. Slight increase in size of bilateral effusions and basilar atelectasis, left greater than right compared with February 27. Tracheostomy in good position. Trace Holloway MD Renal Ultrasound 04/02/17 0000 Signed Impressions: Service Date/Time: Sunday, April 02, 2017 16:59 - CONCLUSION: Limited exam with the left kidney being unable to be evaluated in the bladder not distended. There do appear to be multiple shadowing stones at the right kidney without hydronephrosis. Angelo Manzo MD Wrist X-Ray 03/27/17 0000 Signed Impressions: Service Date/Time: Monday, March 27, 2017 13:21 - CONCLUSION: 1. No acute fracture is identified. A portion of the previously documented distal ulna fracture remains visualized. 2. 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 Angelo Allen MD Aortography 02/28/17 0000 Signed Impressions: Service Date/Time: Tuesday, February 28, 2017 08:01 - CONCLUSION: 1. Active hemorrhage from distal right lateral sacral and iliolumbar branches successfully coil and Gelfoam embolized, as above. Juan Bhakta MD Abdomen/Pelvis CT 02/28/17 Signed Impressions: Service Date/Time: Tuesday, February 28, 2017 06:51 - CONCLUSION: 1. The right retroperitoneal hematoma has increased in size, as above. There are 2 serpiginous arterially enhancing structures visualized, one in the right psoas muscle and another extending into the hematoma at the right iliac fossa. These could represent sites of continued active bleeding. 2. Stable moderate size left and small right pleural effusion with associated compressive atelectasis. 3. Stable small volume of free fluid in the abdomen and pelvis. There is also anasarca. The findings concerning the retroperitoneal hematoma were discussed with Dr. Aguiar via telephone at approximately 7: 10 AM on 02/28/2017. Angelo Allen MD Abdomen X-Ray 02/26/17 Signed Impressions: Service Date/Time: Sunday, February 26, 2017 14:52 - CONCLUSION: 1. Nonobstructive bowel gas pattern. Juan Bhakta MD Upper Extremity Ultrasound 02/10/17 Signed Impressions: Service Date/Time: Friday, February 10, 2017 18:46 - CONCLUSION: Occlusive thrombus in the cephalic and basilic veins. Benjamin Person MD Lung Scan- Nuclear Medicine 02/10/17 0000 Signed Impressions: Service Date/Time: Friday, February 10, 2017 22:17 - CONCLUSION: Low probability pulmonary embolism. Candido Patton MD Head CT 02/10/17 0000 Signed Impressions: Service Date/Time: Friday, February 10, 2017 23:51 - CONCLUSION: Negative noncontrast CT brain. Candido Patton MD Lumbar Puncture Fluoroscopy 02/01/17 0000 Signed Impressions: Service Date/Time: January 09:35 - CONCLUSION: Uncomplicated fluoroscopically guided lumbar puncture. CSF was clear. Nabeel Peralta MD Head Magnetic Resonance Angiography 9/9/17 0000 Signed Impressions: Service Date/Time: Friday, January 27, 2017 10:33 - CONCLUSION: No intracranial vascular abnormality is identified. There is no aneurysm visualized. Angelo Allen MD IVC Filter Placement X-Ray 01/25/17 Signed Impressions: Service Date/Time: January 10:29 - CONCLUSION: Uncomplicated inferior vena cava filter placement as above. Yung Fowler MD Thoracic Spine MRI 01/24/17 Signed Impressions: Service Date/Time: Tuesday, January 24, 2017 22:29 - CONCLUSION: 1. Mild degenerative spondylosis most prominently at T11-L1 with slight effacement of the anterior thecal sac and left lateral recess. No significant neural foraminal stenosis. 2. No acute fracture. Juan Bhakta MD Lumbar Spine MRI 01/23/17 Signed Impressions: Service Date/Time: Monday, January 23, 2017 17:01 - CONCLUSION: 1. At L4-5 is a broad-based disc protrusion with severe central canal and lateral recess stenosis and flattening of the exiting right L4 nerve root. 2. L5-S1 there is a disc protrusion and moderate stenosis with flattening of the exiting L5 nerve roots bilaterally. 3. At L3-4 there is a moderate to severe central stenosis and lateral recess stenosis with mild foraminal stenosis. 4. No acute fracture or spondylolisthesis. Trace Holloway MD Lower Extremity Ultrasound 01/23/17 Signed Impressions: Service Date/Time: Monday, January 23, 2017 09:53 - CONCLUSION: Bilateral focal lower extremity DVT involving the posterior tibial veins. Angelo Garrido MD Cervical Spine MRI 01/23/17 Signed Impressions: Service Date/Time: Monday, January 23, 2017 17:01 - CONCLUSION: 1. Multilevel cervical spine degenerative changes as above. 2. Mild degrees of spinal stenosis at C3/C4-C6/C7. No cord compression or cord signal abnormality. 3. Age indeterminate left paracentral/foraminal disc protrusion at C6/C7. 4. Multilevel foraminal stenosis, most severe on the left at C6/C7. Please see individual levels above. 5. No fracture or subluxation of the cervical spine. Angelo Garrido MD Brain MRI 9/5/17 0000 Signed Impressions: Service Date/Time: Monday, January 23, 2017 17:01 - CONCLUSION: 1. No acute stroke or other acute intracranial abnormality demonstrated. 2. Moderate severity chronic white matter changes, nonspecific but most likely related to chronic small vessel disease. 3. Few scattered tiny lacunar infarcts of the brainstem. 4. Given the findings are not entirely specific, clinical evaluation for possible multiple sclerosis recommended. Angelo Garrido MD Knee X-Ray 01/22/[id number] Signed Impressions: Service Date/Time: Sunday, January 22, 2017 21:17 - CONCLUSION: 1. Evidence of moderate to large joint effusion. 2. No acute fracture or malalignment. 3. Mild 3 compartment osteoarthritic change. Benjamin Person MD Hip and Pelvis X-Ray [id number]/22/[id number] Signed Impressions: Service Date/Time: Sunday, January 22, 2017 21:10 - CONCLUSION: 1. Mild to moderate degenerative change of both hips with no acute fracture or malalignment. There is flattening and remodeling of the right humeral head. Benjamin Person MD Physical Exam GENERAL: Sedated on the vent, NAD SKIN: Cool and dry. No generalized rash. Edematous in extremities EYES: [place] conjunctiva. No petechia or hemorrhage. EARS, NOSE AND THROAT: Nose without bleeding or purulent nasal discharge. Dry oral mucosa NECK: Trach site ok. CARDIOVASCULAR: Regular rate and rhythm. Soft heart sounds. No murmurs RESPIRATORY: Coarse BS bilaterally, decreased at bases. ABDOMEN: Soft, not tender, distended, PEG site ok. No guarding rectal tube in place with small amount of liquid stool EXTREMITIES: No clubbing, cyanosis. Edema +++. Dry dressing on R leg wounds NEUROLOGICAL: sedated PSYCHIATRIC: unable to assess LINE: Lines with no evidence of infection Assessment & Plan Remarks IMPRESSION Recurrent respiratory failure, ?plugging - last CXR better New Sepsis (fever and leucocytosis), temps up again x 1, and WBC still elevated - resolved Aspiration Pneumonia in health care setting. Mucus plugs with atelectasis. - completed Zerbaxa; on Tobra nebs Leucocytosis, persistent, but decreasing ESBL in urine in recent past. 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 PNA, ?plugging/atelctasis - MDR, I to Zerbaxa, has been tolerating T-piece - likely effusion adding to his respiratory problems, on top of his plugging /secretions Large R retroperitoneal bleed, S/P multiple transfusions and S/P coiling of bleeders Anemia, due to bleed, retroperitoneal MSSA sepsis, due to suppurative thrombophlebitis LUE, S/P I and D and excision of portion of cephalic vein - S/P Rx Respiratory failure, has had several intubations - reintubated again 02/28, extubated 03/11 - reintubated again - S/P trach 03/14 Rx 7 days high dose solumedrol for transverse myelitis Wu LE DVT has IVC filter placed 01/25 - ?hypercoagulable state Chronic kidney disease, worsening creatinine - shock and compression of ureter by hematoma Known DM, HTN Diarrhea, ? C.diff - invalid result, needs to be repeated RECOMMENDATION Continue Tobra nebs, will give 14 days Also on Diflucan, end date ordered Continue oral Vanco, end date ordered Repeat sputum G/S C/S Follow temps Follow CBC Monitor progress Patient back on the vent D/W RN Dr Carrie Puente covering this weekend Irene Edwards MD Apr 27, 2017 10:20
--- NOTE | 2017-04-27 12:44 | HHI.CCPN ---
Subjective Remarks/Hospital Course Date of admission: 01/22 Date of critical care medicine consult 02/10 due to acute hypoxemic respiratory failure requiring emergent intubation 62-year-old male with a past medical history of hypertension, hyperlipidemia, diabetes mellitus, gout, uric acid kidney stones, kidney disease of unknown stage who originally presented to [facility] emergency department on 01/22 after a fall in which he sustained a right distal ulna fracture. He had been experiencing a gradual primarily lower extremity weakness as well as upper extremity weakness that was progressive. Neurology consult was obtained. MRI revealed no acute stroke. He had multifocal white matter changes. Tiny lacunar infarcts of the brainstem. Lumbar MRI report states L4-L5 disc protrusion with cetnral canal stenosis. Dr. Blackwell evaluated and states no cord compression on MRI C/T spine and recommended nonoperative management. Symptoms were felt to be consistent with transverse myelitis and he underwent Solumedrol 250 mg IV q6 hours 01/27-02/02. He also was found to have occlusive thrombus in the bilateral posterior tibial veins. Heparin was being avoided because he had traumatic lumbar puncture on 01/26 and 02/01. IVC filter was placed 01/25. He was undergoing physical therapy, reportedly making some improvements with plan to eventually discharged home with his son (max assist standing, and bed to chair per PT note). Apparently he had some vomiting the evening of 02/09 and additional vomiting on 02/10. He had a fever 102.8 on 02/09. Last recorded bowel movement was 02/03. Tonight he had acute onset of severe hypoxemia and respiratory distress. [facility] called and he was brought emergently to [facility] where his sats were 64% on 100% nonrebreather with mean arterial pressure 44. He was emergently intubated, CVL and art line placed. He is in septic shock. SUBJ: 02/11: Patient remains intubated sedated, critically ill. FiO2 reduced to 80% after increasing PEEP to 12. In severe septic shock Levophed at 16 mcg/m, vasopressin at 0.04 international units. D/W vascular surgery Dr. Enciso. He performed bedside Left upper extremity incision and debridement and excision of septic cephalic vein. 02/12: Remains intubated sedated profoundly septic, in shock on vasopressin and 7 mcg/min Levophed. FiO2 has improved to 45%, WBC count remains elevated with 20 ,000 white count significant left shift. Slight improvement in creatinine 2.9 urine output 750 ml 24 hours. 2-D echo shows LV ejection fraction 20-25%, no vegetation reported. Blood cultures 4 staph aureus. Wound culture pending 02/13: Remains critically ill but stable to improving. WBC count is down to 16, creatinine improving to 2.36. Off all pressors. Urine output also improving. 1.5L in 24 hours 02/14: Extubated 02/13. Tolerating well. WBC now down to 12.8. Creat improving 2.3 to 2. UO 3.4L. remains off all pressors. Was started on Precedex yesterday night for agitation, currently on 0.5 g per KG per hour. Chest x-ray shows left more than right air space disease 02/20/17 Re consult: 62-year-old male who was originally admitted for lower extremity weakness and found to have what was thought to be possible transverse myelitis. His hospital course his included a healthcare associated pneumonia, septic thrombophlebitis, DVT. He was most recently in the hospital floor where he had significant nausea and vomiting and diarrhea. His C. difficile test was recently negative. However, he has experienced worsening acute on chronic renal failure, hypotension, tachycardia, and severe hypoxemia. He did have a bout of vomiting earlier today, and his hospitalist attending suspects that he may have aspirated. He arrives by rapid response to the ICU with a nonrebreather in place in severe respiratory distress with SPO2 of 85%. I emergently intubate the patient, see separate procedure note for details. At this point the patient was hypotensive and tachycardic. He does have a history of an EF of 20%, however clinically he appears in florid septic shock. I placed central line and arterial line started vasopressors and gentle IV fluid resuscitation with 1 L of LR. Patient today was empirically broadened to vancomycin and Zosyn from his oxacillin which was initially treating MSSA bacteremia. He is recultured. Critical-care medicine is consulted to evaluate and manage his worsening multiorgan system failure and decompensated septic shock 02/21: Patient remains intubated sedated. Becomes anxious tachypnea on sedation lightening. Chest x-ray shows mild left lower lobe infiltrate. WBC count is slightly improved today from 23.2 t0 21. C Diff negative. UO adequate, creat slightly worsening. 1.57 today 02/22: Remains intubated sedated tolerated CPAP yesterday, plan is for EGD/ Colonscopy. WBC count back to normal. UO adequate. Creat stable 02/23: Tolerating CPAP trials following commands. Will do a spontaneous breathing trials. Status post EGD colonoscopy yesterday -Gastritis, esophagitis. Diverticulosis and multiple polyps. Urine output adequate but creatinine increasing to 1.7 with patient requiring multiple straight catheterization. We'll reinsert Sloan. 02/24: Breathing comfortably 24 hours after extubation. Protects airway well. 02/25: Excoriate bottom, will place rectal FMS. Start pureed diet. 02/26: Afebrile. Complaining of nausea and vomiting this afternoon. Increased stool output. Continue potassium replacement today. 02/27: 10 PM overnight, acutely hypotensive. Received 3 units PRBCs. Antibiotic coverage broadened to piperacillin/tazobactam, cortisol and 1 dose of vancomycin. Oxacillin drip currently on hold. Symptomatically, patient continues to vague abdominal pain/nausea vomiting which is unchanged for the past several days. Lipase elevated yesterday. Lactic acid normal. Troponin normal. Urinary retention after removal of Sloan. Straight catheter 1300. Cc 02/28: New diagnosis large retroperitoneal hematoma. Received 10 PRBC, 14 FFP, 2 platelets, 1 cryo-, 6 g calcium chloride, 2 is magnesium sulfate and 4 mg Bumex. CTA abdomen revealed possible arterial bleeds iliac, lumbar. Patient is currently on norepinephrine and epinephrine drips and possible need right nephrostomy tube placement due to large hematoma compressing ureter. Intra-abdominal bladder pressures are currently 13 03/01: Afebrile. Received 25 g albumin and 1 unit PRBCs overnight. Intra- abdominal bladder pressures currently 19. Currently on 3 micrograms per minute of norepinephrine. Dwavs-ap-roba 1 out of 4 on 4 mics grams per kilogram per minute of cisatracurium. 03/02: Slightly hypothermic overnight. Hemoglobin appears to have stabilized. Troponin bump overnight likely secondary to demand ischemia from hypotension. Hemodynamically stable off all vasopressors. 03/03: Received 1 PRBCs overnight. 3 units currently. Off all vasopressors. Likely rebleeding. Stool is dark. 03/04: Remains unstable. Ventilator dependent. 03/05: afebrile. hgb stable. 03/06: bumex drip started overnight. good uop after bumex initiated. still grossly volume overloaded. Cr downtrending. more awake with transition to propofol. still too volume overloaded to tolerate extubation. hgb stable. 03/07: Afebrile. Tolerating tube feeds at goal with Nepro. Positive BM. On low-dose fentanyl and propofol drips. Potassium currently being replaced. 03/08: Eyes will open on ventilator. Afebrile. Tolerating tube feeding. Failed PSV trial yesterday due to apnea. 03/09: Following commands. Tmax 101. Tolerating tube feeding. One hour PSV trial yesterday. Currently tolerating well so far today 1.5 hours 03/10: Low-grade temperatures. Tolerating PSV trial 10 hours yesterday. Currently at 5/5 at 35%. We'll probably attempt extubation a.m. after hemodialysis. 03/11: Extubated currently in 4 L nasal cannula. Thick secretions thick clear with cough. Currently afebrile. Tolerating diet previously. 03/12: Sleepy this morning but arouses. Following commands. Refusing diet at the present time. On 2 L nasal cannula. 03/13: Patient reintubated last night for worsening respiratory status. Currently sedated on mechanical ventilation. Became hypotensive following intubation and is on Levophed 20 mics per minute. 03/14: Sedated, orally intubated on mech vent at the time of my evaluation this AM, subsequently underwent perc trach placement. Remains on levophed for pressor support. Transfused 1 unit PRBCs today. Persisten 03/15: Trach site clean, dry. CXR with bilateral basilar infiltrates. 03/16: Pulmonary congestion persists. Clinical condition not improving. Prognosis becoming increasingly bleak. 03/17: Glucose intolerance worse. No improvement in neurological function. 03/18: Remains on mechanical ventilation via tracheostomy. Off pressors now. Neurologic status remains poor. 03/19: Drowsy, encephalopathic, arousable. On mechanical ventilation via tracheostomy. Levemir increased for hyperglycemia today. Remains off pressors 03/20: More awake, moves both upper extremities. On mechanical ventilation via tracheostomy. Daily C Pap trials ongoing. 03/21: Awake and alert. On mechanical ventilation via tracheostomy. Opens and closes eyes on command. 03/22: Awake and alert. Tolerated T PIECE for 7 hours yesterday. Dialyzed today. 03/23: Currently on T piece trial. Status post dialysis yesterday on 3 L. Awake and alert. Wants to eat. Subjective 03/24: Currently afebrile. Hemodialysis catheter discontinued yesterday from left IJ. Persistent leukocytosis noted. Potassium will be replaced. Furosemide 40 mg twice a day IV to 20 mg IV twice a day 03/25: WBC count unchanged. Patient on T piece with humidified air greater than 48 hours, tolerating it well. Reconsulted 04/12: The patient was transferred emergently from the floor/ [facility]. Patient was initially seen by web software engineer Dr. Estrada, and the patient was noted to be tachypneic on T piece of 40%. ABGs were performed which showed a PaO2 of 60 on T piece of FiO2 of 40%. Chest x-ray was performed which showed loss of entire left hemidiaphragm perinatal breastfeeding assistant consolidation in the left lower lobe. Concern for mucus plugging versus fluid. The patient was transferred emergently to [facility] placed on a ventilator CT of the chest is pending. Upon arrival in the room the patient is alert and oriented, mouthing words, nodding head to yes and no questions O2 sat is 100% but patient is currently on mechanical ventilation. Currently in no respiratory distress. 04/13: Tmax 99.8. The patient's oxygen requirements have decreased currently FiO2 35% with a PaO2 1 blood gas of 85, O2 saturation 100%. No respiratory distress noted. Patient underwent CT of the chest yesterday noted pleural effusions left greater than right, diagnostic/and therapeutic CT thoracentesis plan for this a.m.. 04/14: Patient underwent CT-guided thoracentesis of the right side with approximately 600 cc withdrawn. Today web software engineer Dr. LABOY in and up size indwelling 6.0 Shiley to a 8.0 Shiley. Minimal bleeding noted around the site. X-ray improving. Patient started on CPAP trials today, as well as tube feeds were initiated. 04/15: Placed on T piece this morning via tracheostomy. Appears to be tolerating it. Laying in bed not in any acute distress. 04/16: Awake and alert. Tolerating T piece. Tolerating PEG feeds. 04/17: Awake and alert. Tolerating T piece. Tolerating tube feeds via PEG 04/18: Awake and alert. Tolerating TPs. Tolerating tube feeds. Passed swallow eval 04/19: Awake and alert. Remains on T piece. Wants to move out of ICU as he indicates to me once again as he has for the past few days. Awaiting CIC bed 04/20: Awake and alert. Remains on T piece. Developed hypotension last night for which she was transiently on Levophed however has been off since early this morning. ID adjusting antibiotics and working up for new sepsis. 04/21: Awake and alert. On T piece. Awaiting [facility]IC bed for the last few days. 04/22: Awake and alert. Remains on T piece. Received 500 cc normal saline this morning for tachycardia. 04/23 No events overnight. Remains on TP's with 35% FIO2. Afebrile. 04/24: Resting comfortably. Got short of breath with Passy-Rafy valve which was taken off. 04/25: Remains on T piece. Awaiting transfer out of ICU. 04/26: Remains on T piece. Still awaiting transfer out of ICU since 04/17. 04/27 Patient became hypotensive, bradycardic and hypoxic, ABG on TP's last night showed acute hypercapnic resp acidosis (PH 7.10, CO2: 80) he was subsequently placed on mechanical ventilator. Patient was given Albumin, 2u PRBC and started on Levophed 3mics. Renal function worse today with Cr: 1.53 from 1.13 Objective Vital Signs Date Time Temp Pulse Resp B/P (MAP) Pulse Ox O2 Delivery O2 Flow Rate FiO2 04/27/17 12:00 100.0 114 26 92/55 (67) 98 04/27/17 12:00 40 04/27/17 07:00 Mechanical Ventilator 04/26/17 20:22 6.00 Intake and Output 04/27/17 04/27/17 04/28/17 08:00 16:00 00:00 Intake Total 1578 ml 35 ml Output Total 400 ml Balance 1178 ml 35 ml Result Diagram: 04/27/17 0730 04/27/17 07 Other Results Laboratory Tests Test 04/26/17 23:02 04/27/17 04:49 04/27/17 07:30 Blood Gas Puncture Site RT RADIAL RT RADIAL Blood Gas Patient Temperature 98.6 98.6 Blood Gas HCO3 24 mmol/L 22 mmol/L Blood Gas Base Excess -4.6 mmol/L -3.2 mmol/L Blood Gas Oxygen Saturation 92 % 95 % Arterial Blood pH 7.10 7.34 Arterial Blood Partial Pressure CO2 80 mmHg 41 mmHg Arterial Blood Partial Pressure O2 87 mmHg 111 mmHg Arterial Blood Oxygen Content 10.3 Vol % 12.2 Vol % Arterial Blood Carboxyhemoglobin 1.5 % 1.8 % Arterial Blood Methemoglobin 1.3 % 1.2 % Blood Gas Hemoglobin 7.9 G/DL 8.9 G/DL Oxygen Delivery Device TPIECE VENTILATOR Blood Gas Liter Flow 6 L/M Blood Gas Inspired Oxygen 100 % 50 % Blood Gas Ventilator Setting SEE COMMENT White Blood Count 17.5 TH/MM3 Red Blood Count 3.17 MIL/MM3 Hemoglobin 8.8 GM/DL Hematocrit 27.4 % Mean Corpuscular Volume 86.6 FL Mean Corpuscular Hemoglobin 27.6 PG Mean Corpuscular Hemoglobin Concent 31.9 % Red Cell Distribution Width 16.9 % Platelet Count 311 TH/MM3 Mean Platelet Volume 8.2 FL Neutrophils (%) (Auto) 76.3 % Lymphocytes (%) (Auto) 5.0 % Monocytes (%) (Auto) 10.1 % Eosinophils (%) (Auto) 8.2 % Basophils (%) (Auto) 0.4 % Neutrophils # (Auto) 13.3 TH/MM3 Lymphocytes # (Auto) 0.9 TH/MM3 Monocytes # (Auto) 1.8 TH/MM3 Eosinophils # (Auto) 1.4 TH/MM3 Basophils # (Auto) 0.1 TH/MM3 CBC Comment AUTO DIFF Differential Total Cells Counted 100 Neutrophils % (Manual) 54 % Band Neutrophils % 25 % Lymphocytes % 5 % Monocytes % 5 % Eosinophils % 2 % Neutrophils # (Manual) 15.4 TH/MM3 Metamyelocytes 8 % Myelocytes 1 % Differential Comment FINAL DIFF MANUAL Platelet Estimate NORMAL Platelet Morphology Comment CLUMPED Blood Urea Nitrogen 52 MG/DL Creatinine 1.53 MG/DL Random Glucose 142 MG/DL Total Protein 5.5 GM/DL Albumin 1.9 GM/DL Calcium Level 10.1 MG/DL Phosphorus Level 3.3 MG/DL Magnesium Level 2.0 MG/DL Alkaline Phosphatase 137 U/L Aspartate Amino Transf (AST/SGOT) 33 U/L Alanine Aminotransferase (ALT/SGPT) 8 U/L Total Bilirubin 0.5 MG/DL Sodium Level 144 MEQ/L Potassium Level 5.8 MEQ/L Chloride Level 114 MEQ/L Carbon Dioxide Level 25.1 MEQ/L Anion Gap 5 MEQ/L Estimat Glomerular Filtration Rate 46 ML/MIN Imaging Last Impressions Chest X-Ray 04/27/17 0600 Signed Impressions: Service Date/Time: Thursday, April 27, 2017 05:19 - CONCLUSION: Improved aeration. Cornel Harrison MD Thoracentesis 04/13/17 1054 Signed Impressions: Service Date/Time: Thursday, April 13, 2017 15:26 - CONCLUSION: Uncomplicated CT-guided right thoracentesis. Candido Mendoza Jr., MD Chest CT 04/12/17 1558 Signed Impressions: Service Date/Time: March 17:51 - CONCLUSION: 1. Slight increase in size of bilateral effusions and basilar atelectasis, left greater than right compared with February 27. Tracheostomy in good position. Trace Holloway MD Renal Ultrasound 04/02/17 0000 Signed Impressions: Service Date/Time: Sunday, April 02, 2017 16:59 - CONCLUSION: Limited exam with the left kidney being unable to be evaluated in the bladder not distended. There do appear to be multiple shadowing stones at the right kidney without hydronephrosis. Angelo Manzo MD Wrist X-Ray 03/27/17 0000 Signed Impressions: Service Date/Time: Monday, March 27, 2017 13:21 - CONCLUSION: 1. No acute fracture is identified. A portion of the previously documented distal ulna fracture remains visualized. 2. 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 Angelo Allen MD Aortography 02/28/17 0000 Signed Impressions: Service Date/Time: Tuesday, February 28, 2017 08:01 - CONCLUSION: 1. Active hemorrhage from distal right lateral sacral and iliolumbar branches successfully coil and Gelfoam embolized, as above. Juan Bhakta MD Abdomen/Pelvis CT 02/28/17 0000 Signed Impressions: Service Date/Time: Tuesday, February 28, 2017 06:51 - CONCLUSION: 1. The right retroperitoneal hematoma has increased in size, as above. There are 2 serpiginous arterially enhancing structures visualized, one in the right psoas muscle and another extending into the hematoma at the right iliac fossa. These could represent sites of continued active bleeding. 2. Stable moderate size left and small right pleural effusion with associated compressive atelectasis. 3. Stable small volume of free fluid in the abdomen and pelvis. There is also anasarca. The findings concerning the retroperitoneal hematoma were discussed with Dr. Aguiar via telephone at approximately 7: 10 AM on 02/28/2017. Angelo Allen MD Abdomen X-Ray 02/26/17 Signed Impressions: Service Date/Time: Sunday, February 26, 2017 14:52 - CONCLUSION: 1. Nonobstructive bowel gas pattern. Juan Bhakta MD Upper Extremity Ultrasound 02/10/17 Signed Impressions: Service Date/Time: Friday, February 10, 2017 18:46 - CONCLUSION: Occlusive thrombus in the cephalic and basilic veins. Benjamin Person MD Lung Scan- Nuclear Medicine 02/10/17 Signed Impressions: Service Date/Time: Friday, February 10, 2017 22:17 - CONCLUSION: Low probability pulmonary embolism. Candido Patton MD Head CT 02/10/17 0000 Signed Impressions: Service Date/Time: Friday, February 10, 2017 23:51 - CONCLUSION: Negative noncontrast CT brain. Candido Patton MD Lumbar Puncture Fluoroscopy 02/01/17 0000 Signed Impressions: Service Date/Time: January 09:35 - CONCLUSION: Uncomplicated fluoroscopically guided lumbar puncture. CSF was clear. Nabeel Peralta MD Head Magnetic Resonance Angiography 01/27/17 0000 Signed Impressions: Service Date/Time: Friday, January 27, 2017 10:33 - CONCLUSION: No intracranial vascular abnormality is identified. There is no aneurysm visualized. Angelo Allen MD IVC Filter Placement X-Ray 01/25/17 0000 Signed Impressions: Service Date/Time: January 10:29 - CONCLUSION: Uncomplicated inferior vena cava filter placement as above. Yung Fowler MD Thoracic Spine MRI 01/24/17 0000 Signed Impressions: Service Date/Time: Tuesday, January 24, 2017 22:29 - CONCLUSION: 1. Mild degenerative spondylosis most prominently at T11-L1 with slight effacement of the anterior thecal sac and left lateral recess. No significant neural foraminal stenosis. 2. No acute fracture. Juan Bhakta MD Lumbar Spine MRI 01/23/17 Signed Impressions: Service Date/Time: Monday, January 23, 2017 17:01 - CONCLUSION: 1. At L4-5 is a broad-based disc protrusion with severe central canal and lateral recess stenosis and flattening of the exiting right L4 nerve root. 2. L5-S1 there is a disc protrusion and moderate stenosis with flattening of the exiting L5 nerve roots bilaterally. 3. At L3-4 there is a moderate to severe central stenosis and lateral recess stenosis with mild foraminal stenosis. 4. No acute fracture or spondylolisthesis. Trace Holloway MD Lower Extremity Ultrasound 01/23/17 Signed Impressions: Service Date/Time: Monday, January 23, 2017 09:53 - CONCLUSION: Bilateral focal lower extremity DVT involving the posterior tibial veins. Angelo Garrido MD Cervical Spine MRI 01/23/17 Signed Impressions: Service Date/Time: Monday, January 23, 2017 17:01 - CONCLUSION: 1. Multilevel cervical spine degenerative changes as above. 2. Mild degrees of spinal stenosis at C3/C4-C6/C7. No cord compression or cord signal abnormality. 3. Age indeterminate left paracentral/foraminal disc protrusion at C6/C7. 4. Multilevel foraminal stenosis, most severe on the left at C6/C7. Please see individual levels above. 5. No fracture or subluxation of the cervical spine. Angelo Garrido MD Brain MRI 01/23/17 Signed Impressions: Service Date/Time: Monday, January 23, 2017 17:01 - CONCLUSION: 1. No acute stroke or other acute intracranial abnormality demonstrated. 2. Moderate severity chronic white matter changes, nonspecific but most likely related to chronic small vessel disease. 3. Few scattered tiny lacunar infarcts of the brainstem. 4. Given the findings are not entirely specific, clinical evaluation for possible multiple sclerosis recommended. Angelo Garrido MD Knee X-Ray [id number]/[id number] Signed Impressions: Service Date/Time: Sunday, January 22, 2017 21:17 - CONCLUSION: 1. Evidence of moderate to large joint effusion. 2. No acute fracture or malalignment. 3. Mild 3 compartment osteoarthritic change. Benjamin Person MD Hip and Pelvis X-Ray [id number] Signed Impressions: Service Date/Time: Sunday, January 22, 2017 21:10 - CONCLUSION: 1. Mild to moderate degenerative change of both hips with no acute fracture or malalignment. There is flattening and remodeling of the right humeral head. Benjamin Person MD Objective Remarks GENERAL: 62-year-old male, resting in bed, on mechanical ventilation via trach HEENT: Normocephalic. Atraumatic. Pupils equal, round, reactive. NECK: Tracheostomy in place, around trach site erythematous, yellowish drainage CHEST: b/l equal air entry decreased bilaterally . Scattered rhonchi, no wheezing CARDIOVASCULAR: S1-S2 regular, no gallop or murmur ABDOMEN distended. No rigidity. Umbilical hernia is reducible. No guarding. PEG tube in place : Positive scrotal edema Sloan in situ MUSCULOSKELETAL: Pulses 2+. 1+ bilateral upper and lower extremity edema. NEUROLOGICAL: Awake and alert, has spontaneous eye opening. Opens and closes eyes on command. Moves 4 limbs weakly to stimulation. Procedures 01/25/2017- Retrievable IVC Filter placement 01/26/17-lumbar puncture with fluoroscopy-by interventional radiology 02/01/17- lumbar puncture fluoroscopy by interventional radiology 02/10/17- Endotracheal Intubation 02/10/17-left IJ central venous line placed 02/10/17-left femoral arterial line placed 02/11/17-Diagnostic and therapeutic bronchoscopy with bronchoalveolar lavage 02/11/17-Left upper extremity incision and debridement with excision of septic cephalic vein 02/13/17- Extubated 02/20/17- endotracheal intubation 02/20/17- Left subclavian central line placement 02/20/17-Right radial A-line placement 02/22/17-EGD/colonoscopy 02/28/17-right radial a line 02/28/17- Endotracheal intubation 02/28/17- right sided introducer catheter placement 02/28/17- Right IJ central line placement 02/28/17-Right chest tube placement 02/28/17- Embolization of inferior and superior sacral branches of right internal iliac artery 03/01/17- Hemodialysis access catheter 03/03/17-Right IJ central line placement 03/11/17-Extubated 03/13/17- Endotracheal intubation 03/14/17-Tracheostomy placement, trach downsized to 6.0 Anni 03/30/17 03/15/17-PEG tube placement 04/11/17-CT Chest 04/13/17-thoracentesis right 600 cc removed Date of Insertion: Feb 20, 2017 Date of Insertion: Mar 03, 2017 Line: Central Venous Catheter Side: Right Location: Internal, Jugular A/P Problem List: (1) Septic shock ICD Code: A41.9 - Sepsis, unspecified organism; R65.21 - Severe sepsis with septic shock Status: Acute (2) Acute respiratory failure ICD Code: J96.00 - Acute respiratory failure, unspecified whether with hypoxia or hypercapnia Status: Acute (3) Thrombophlebitis arm ICD Code: I80.8 - Phlebitis and thrombophlebitis of other sites (4) Aspiration pneumonia ICD Code: J69.0 - Pneumonitis due to inhalation of food and vomit Status: Acute (5) Atelectasis of left lung ICD Code: J98.11 - Atelectasis Status: Acute (6) Quadriparesis ICD Code: G82.50 - Quadriplegia, unspecified Status: Acute (7) DVT (deep venous thrombosis) ICD Code: I82.409 - Acute embolism and thrombosis of unspecified deep veins of unspecified lower extremity (8) Altered mental status ICD Code: R41.82 - Altered mental status, unspecified Status: Acute (9) CKD (chronic kidney disease) stage 3, GFR 30-59 ml/min ICD Code: N18.3 - Chronic kidney disease, stage 3 (moderate) Status: Chronic (10) Acute renal failure ICD Code: N17.9 - Acute kidney failure, unspecified Status: Acute (11) Diabetes mellitus ICD Code: E11.9 - Type 2 diabetes mellitus without complications Status: Chronic (12) Distal end of ulna fracture, closed ICD Code: S52.609A - Unspecified fracture of lower end of unspecified ulna, initial encounter for closed fracture Status: Acute (13) Gout ICD Code: M10.9 - Gout, unspecified Status: Chronic Assessment and Plan Assessment: NEURO/PSYCH: Acute metabolic encephalopathy- persistent Quadriparesis secondary to suspected transverse myelitis Recurrent falls Suspected transverse myelitis. Received methylprednisolone 250 mg IV every 6 hours 01/27-02/02, started back on hydrocortisone 02/21/17, initially tapering to 50 mg IV every 8 hours starting received 1 dose at 2100 prior to becoming hypotensive. weaning hydrocortisone taper and stopped 03/09. Resumed hydrocortisone 50mg IV Q6hrly on 03/14 as patient became hypotensive following intubation on 03/13 requiring levophed. Continue Cortef 10mg Q12 LP 01/26 and 02/01. CSF culture negative 01/26, 02/01 Oligoclonal bands negative. CSF/serum IgG index is not elevated. VDRL nonreactive. Cryptococcal antigen negative. Brain MRI 01/23 no acute stroke. Few scattered lacunar infarcts of the brainstem. Moderate chronic white matter changes. MRI cervical/thoracic spine- mild spinal stenosis C3/C4 to C6/C7. No cord compression. RPR negative Neurology has been following, Dr. Crenshaw. Repeat CT brain 02/10 - negative Continue PT/OT Continue oxycodone 10 mg every 4 hours scheduled RESP: Acute hypoxemic respiratory failure Healthcare associated pneumonia/Aspiration Pneumonia S/P Right-sided chest tube 02/28 Continue with vent support keep sat >92% Bronchodilators, pulm toilet, trach care Failed attempt to wean successfully due to volume overload and multiple organ failure. underwent perc tracheostomy 03/14. Pulmonology following Dr. Estrada - 04/13 CT guided thoracentesis scheduled emergently as discussed with Dr. 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 Estrada at bedside CV: Systolic heart failure likely chronic with ejection fraction 20-25% Hyperlipidemia History of hypertension Mild TR Sinus tachycardia Elevated troponin likely type II demand ischemia Monitor HR and BP keep MAP>65mmHg Wean off Levophed Atorvastatin 10 mg by mouth daily for dyslipidemia. 2-D echocardiogram 01/11 revealed EF 20-25%. Mild TR. Pulmonary arterial pressures were normal around 20 GI: Large right retroperitoneal hematoma Erosive esophagitis Adematous/hyperplastic colon polyps Severe acute protein calorie malnutrition Nausea/vomiting - resolved. Diarrhea Gastritis Diverticulosis Internal and external hemorrhoids Hiatal hernia Elevated lipase Continue tube feeds- on Glucerna 1.5 @65ml/hr 02/27 CT chest/abdomen and pelvis - 9.4 x 7.5 renal and 16 x 12 cm right psoas muscle hematoma. Fluid around liver and spleen. Right-sided nephrolithiasis CTA abdomen 02/28 - possible blushing around iliac/lumbar vessels Discussed with IR. s/p attempted embolization CT abdomen and pelvis 02/10 atrophic left kidney. Bilateral inguinal hernias fat- containing. Nonobstructing 12 mm right kidney stone repeat CT abd/pelvis did not show evidence of obstruction. patient clinically has been having diarrhea (c. diff negative 02/19). also with nausea/vomiting of unclear etiology. EGD/Colonoscopy-02/22/17 showed gastritis esophagitis, hiatal hernia, diverticulosis and multiple polyps in descending colon and sigmoid which were snared biopsied. Biopsy pending Status post PEG tube placement Lansoprazole 30 mg twice a day for GI prophylaxis FEN/RENAL: Acute kidney injury in the setting of Chronic kidney disease stage 3-4 History of uric acid kidney stones with prior stent BPH Nonfunctioning left kidney Monitor renal function, electrolytes replacement as needed Place on NS@75mk/r. Cr: 1.53 from 1.13 RIOS/SPEP negative. 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 Recommended nephrostomy tube if obstruction Nephrology consulted, off hemodialysis. Making urine. ICU electrolyte replacement protocol Last IHD was 03/22 ID: Septic shock- resolved. Abscess and Suppurative thrombophlebitis left upper extremity MSSA bacteremia Klebsiella UTI ESBL positive Acute aspiration pneumonia/HCAP Previously treated with Bactrim, ertapenem, intermittent vancomycin, nafcillin Blood cultures 2, UA ESBL positive Klebsiella UTI Sputum 03/14 - Pseudomonas came back resistant to imipenem, Stenotrophomonas maltophilia Antibiotics per ID. on Tobra nebs, PO Vanco and Diflucan. Meropenem discontinued on 04/23. ID-Dr. Edwards. Check BC x 2 sets, sputum cx HEME: Acute blood loss anemia DVT, bilateral posterior tibial vein, IVC filter Septic thrombophlebitis with occlusive thrombus mid cephalic and basilic vein side Monitor CBC s/p transfusion 2units PRBC overnight ( 04/26) Received 10 PRBC, 14 FFP, 2 platelets, 1 cryo-02/28 Received 3 units PRBCs Ultrasound 01/23/17 - Bilateral lower extremity with occlusive posterior tibial vein DVTs. Heparin was initially started for DVT but was placed on hold due to LP with suspected traumatic tap. Currently holding full anticoagulation with enoxaparin 100 mg IV twice a day due to anemia as of 02/26 IVC filter was placed 01/25/17. Ultrasound LUE 02/10 occlusive thrombus mid cephalic vein, basilic vein.s. Transfuse 3 units PRBCs 02/27 Transfuse 2 units PRBCs 03/01. Transfused 1 unit PRBCs on 03/14 ENDO: Diabetes mellitus Hypoglycemia History of prior adrenal insufficiency with shock Gout Accu-Cheks to maintain euglycemia Novulin R every 4 hours. Low Regimen Hold Levemir insulin MSK: Right distal ulna fracture. Recommended nonoperative management. PROPH: Lansoprazole 30 mg twice a day twice a day for stress ulcer prophylaxis. Has IVC filter. Therapeutic enoxaparin was placed on hold for retroperitoneal hematoma ACCESS: Right subclavian CVP placed 04/27 Dispo: Discussed with MATH SPECIALIST at bedside Patient is critically ill with resp failure, septic shock on levophed, worsening renal function and leukocytosis. CCT 30 mins Problem Qualifiers (1) Aspiration pneumonia: (2) DVT (deep venous thrombosis): Qualified Codes: I82.443 - Acute embolism and thrombosis of tibial vein, bilateral (3) Acute renal failure: Qualified Codes: N17.9 - Acute kidney failure, unspecified (4) Diabetes mellitus: (5) Gout: Hood Madera MD Apr 27, 2017 12:44
[2017-04-27] MEDS ORDERED: SODIUM POLYSTYRENE SULFONATE SUSP 15 GM/60 ML CUP PO ONE ×3 (13:00→21:30)
[2017-04-27] MEDS: SODIUM CHLOR 0.9% 1000 ML INJ 1,000 ML IV SCH (14:00)
--- NOTE | 2017-04-27 15:30 | HHI.HCPN ---
Reason for visit a. To assist with evaluation and management of symptoms including: shortness of breath, pain, debility b. To assist medical decision maker(s) with: better understanding of current medical conditions; weighing benefits/burdens of medical treatment options; making medical treatment decisions. Subjective/Interval History Patient seen and examined in ICU. Patient is lethargic, awake and on a mechanical ventilation. Patient not trying to communicate by mouthing words today. Nodded head for "yes" when asked if he was in pain. Patient became hypotensive and bradycardic last night lowest recorded BP 71/36 and a central line was placed and Levophed infusion started. Patient was also hypokalemic hypoxic, ABGs last night revealed pH 7.10, HCO3 24, pCO2 80, pO2 87, O2 sats 92 , Hgb 7.9. Patient received 2uPRBC. Chest x-ray 04/26/17 revealed worsening appearance of the chest. Blood, and sputum culture pending, also ordered is a UA. Bedside nurse, patient urine output is scant. Currently unable to send a specimen. Laboratory workup today revealing WBC 17.5, hemoglobin 8.8, hematocrit 27.7, lately it count 311, sodium 144, potassium 5.8, BUN/creatinine 52/1.53, random glucose 142, total protein 5.5, albumin 1.9. Chest x-ray revealing improved aeration. Patient currently nothing by mouth, speech therapy recommending barium swallow when patient can tolerate Passy Rafy valve. Patient receiving Glucerna 1.2 at 65 mL 7 hours via PEG tube. ID following. No family at bedside. Telephone call to patient`s son Davie, did not respond lefts message for him to call back. Telephone conversation with Deb-patient`s sister and Anrel- patient`s son updated her on patient`s medical status and changes. Verbalized that she will update patient`s son Davie. Case discussed with bedside Clara NOVA . Family/friend interactions Telephone conversation with patient`s sister Deb. Left voicemail message for eileen Broderick son to call back. . Advance Directives Living Will: Never completed Health Care Surrogate: Never completed Durable Power of Staying Machine Operator: Never completed Advance Directive Specifics Health Care Surrogate(s): Healthcare proxys- Son-Davie Cirilo - ; Son-Arnel Cirilo- -cell -home -Opted out though he wants to be updated on patient`s medical status. Documented care wishes: No known documented care wishes have been completed. . Objective Vital Signs Date Time Temp Pulse Resp B/P (MAP) Pulse Ox O2 Delivery O2 Flow Rate FiO2 04/27/17 12:00 100.0 114 26 92/55 (67) 98 04/27/17 12:00 114 04/27/17 12:00 40 04/27/17 11:23 98 40 04/27/17 11:15 114 106/60 04/27/17 11:00 111 25 107/63 (78) 98 04/27/17 10:00 113 04/27/17 10:00 113 23 99/61 (74) 98 04/27/17 09:36 112 97/59 04/27/17 09:34 114 97/59 04/27/17 09:00 120 27 91/52 (65) 96 04/27/17 08:04 99 50 04/27/17 08:00 115 04/27/17 08:00 99.6 115 25 100/59 (73) 99 04/27/17 08:00 40 04/27/17 07:00 116 28 92/56 (68) 99 04/27/17 07:00 99 Mechanical Ventilator 50 04/27/17 06:00 118 04/27/17 06:00 116 88/50 04/27/17 05:00 115 125/68 04/27/17 04:27 97 50 04/27/17 04:00 50 04/27/17 04:00 115 04/27/17 04:00 98.7 115 22 101/62 (75) 98 04/27/17 04:00 115 101/62 04/27/17 03:30 98.7 114 19 100/59 99 04/27/17 03:15 112 101/59 04/27/17 02:00 107 104/63 04/27/17 02:00 104 04/27/17 01:46 98 50 04/27/17 01:44 96.3 104 21 101/62 99 04/27/17 01:41 96.0 105 21 107/65 99 04/27/17 01:15 101 109/65 04/27/17 01:00 101 116/71 04/27/17 00:45 99 116/73 04/27/17 00:30 97 121/73 04/27/17 00:27 98 22 122/72 97 04/27/17 00:15 96 122/72 04/27/17 00:00 95 04/27/17 00:00 50 04/27/17 00:00 95 119/68 04/27/17 00:00 95.9 95 21 119/68 (85) 96 04/26/17 23:53 95 24 97/57 92 04/26/17 23:45 96 95/59 04/26/17 23:30 50 04/26/17 23:30 95 Mechanical Ventilator 50 04/26/17 23:30 96 50 04/26/17 23:30 87 78/49 04/26/17 23:15 95 80/50 04/26/17 23:00 57 71/36 04/26/17 22:00 93 04/26/17 20:22 93 T-piece 6.00 50 04/26/17 20:00 93 24 73/46 (55) 93 04/26/17 20:00 93 04/26/17 19:00 93 T-Piece 35 04/26/17 16:00 97.7 106 25 90/55 (67) 91 Intake & Output 04/27/17 04/27/17 07:00 19:00 Intake Total 3017 ml 35 ml Output Total 850 ml Balance 2167 ml 35 ml IV Total 672 ml 35 ml Tube Feeding 1225 ml Packed Cells 800 ml Blood Product IV Normal Saline Flush 80 ml Other 240 ml Output Urine Total 450 ml Stool Total 400 ml Physical Exam CONSTITUTIONAL/GENERAL: This is an ill-looking patient, in bed c/o back pain. TUBES/LINES/DRAINS: PEG tube, #8Tracheostomy on a mechanical ventilator, PIVs, FC SKIN: No jaundice. Ecchymoses on upper extremities. Sacral pressure wound and L heel pressure injury per EMR. Wound to anterior neck - tracheostomy insertion area with a foam dressing. Not diaphoretic. HEAD: Atraumatic. Normocephalic. EYES: Pupils equal and round, slight reaction.No scleral icterus. No injection or drainage. Fundi not examined. ENT: Trached. Nose without bleeding or purulent drainage. Moist oral mucosa. NECK: Trachea midline. #8 Tracheostomy midline- patient on mechanical ventilation CARDIOVASCULAR: Regular rate and rhythm without murmurs, gallops, or rubs. No JVD. RESPIRATORY/CHEST: Symmetrical, rhonchi and wheezy to auscultation. Small amount of yellow secretions around trach . Breath sounds equal bilaterally. Patient on mechanical ventilation GASTROINTESTINAL: Abdomen soft, non-tender, nondistended. No guarding. Bowel sounds present. TF Glucerna 1.2 infusing @ 65ml/hr via PEG. Liquid stool GENITOURINARY: Without palpable bladder distension. Sloan catheter in with clear urine. MUSCULOSKELETAL: Gout tophi to fingers, knees, elbows and both ankles. Edema + 3 noted to all 4 extremities. NEUROLOGICAL: Trached. Awake, lethargic on a mechanical ventilation with no sedation. Followed command with all 4 extremities. PSYCHIATRIC: No obvious anxiety/depression. no apparent hallucinations or other psychotic thought process. . Diagnostic Tests Laboratory Laboratory Tests Test 04/26/17 06:50 04/26/17 23:02 04/27/17 04:49 04/27/17 07:30 White Blood Count 17.8 TH/MM3 (4.0-11.0) 17.5 TH/MM3 (4.0-11.0) Red Blood Count 2.65 MIL/MM3 (4.50-5.90) 3.17 MIL/MM3 (4.50-5.90) Hemoglobin 7.2 GM/DL (13.0-17.0) 8.8 GM/DL (13.0-17.0) Hematocrit 23.1 % (39.0-51.0) 27.4 % (39.0-51.0) Mean Corpuscular Volume 87.3 FL (80.0-100.0) 86.6 FL (80.0-100.0) Mean Corpuscular Hemoglobin 27.3 PG (27.0-34.0) 27.6 PG (27.0-34.0) Mean Corpuscular Hemoglobin Concent 31.3 % (32.0-36.0) 31.9 % (32.0-36.0) Red Cell Distribution Width 17.7 % (11.6-17.2) 16.9 % (11.6-17.2) Platelet Count 280 TH/MM3 (150-450) 311 TH/MM3 (150-450) Mean Platelet Volume 8.2 FL (7.0-11.0) 8.2 FL (7.0-11.0) Neutrophils (%) (Auto) 73.1 % (16.0-70.0) 76.3 % (16.0-70.0) Lymphocytes (%) (Auto) 6.0 % (9.0-44.0) 5.0 % (9.0-44.0) Monocytes (%) (Auto) 10.0 % (0.0-8.0) 10.1 % (0.0-8.0) Eosinophils (%) (Auto) 10.5 % (0.0-4.0) 8.2 % (0.0-4.0) Basophils (%) (Auto) 0.4 % (0.0-2.0) 0.4 % (0.0-2.0) Neutrophils # (Auto) 13.0 TH/MM3 (1.8-7.7) 13.3 TH/MM3 (1.8-7.7) Lymphocytes # (Auto) 1.1 TH/MM3 (1.0-4.8) 0.9 TH/MM3 (1.0-4.8) Monocytes # (Auto) 1.8 TH/MM3 (0-0.9) 1.8 TH/MM3 (0-0.9) Eosinophils # (Auto) 1.9 TH/MM3 (0-0.4) 1.4 TH/MM3 (0-0.4) Basophils # (Auto) 0.1 TH/MM3 (0-0.2) 0.1 TH/MM3 (0-0.2) CBC Comment AUTO DIFF AUTO DIFF Differential Total Cells Counted 100 100 Neutrophils % (Manual) 67 % (16-70) 54 % (16-70) Band Neutrophils % 11 % (0-6) 25 % (0-6) Lymphocytes % 3 % (9-44) 5 % (9-44) Monocytes % 6 % (0-8) 5 % (0-8) Eosinophils % 7 % (0-4) 2 % (0-4) Basophils % 1 % (0-2) Neutrophils # (Manual) 14.8 TH/MM3 (1.8-7.7) 15.4 TH/MM3 (1.8-7.7) Metamyelocytes 2 % (0-1) 8 % (0-1) Myelocytes 3 % (0-0) 1 % (0-0) Differential Comment FINAL DIFF MANUAL FINAL DIFF MANUAL Platelet Estimate NORMAL (NORMAL) NORMAL (NORMAL) Platelet Morphology Comment NORMAL (NORMAL) CLUMPED (NORMAL) Tear Drop Cells 1+ (NORMAL) Ovalocytes 1+ (NORMAL) Blood Urea Nitrogen 42 MG/DL (7-18) 52 MG/DL (7-18) Creatinine 1.13 MG/DL (0.60-1.30) 1.53 MG/DL (0.60-1.30) Random Glucose 144 MG/DL (74-106) 142 MG/DL (74-106) Total Protein 5.2 GM/DL (6.4-8.2) 5.5 GM/DL (6.4-8.2) Albumin 1.8 GM/DL (3.4-5.0) 1.9 GM/DL (3.4-5.0) Calcium Level 10.0 MG/DL (8.5-10.1) 10.1 MG/DL (8.5-10.1) Alkaline Phosphatase 104 U/L (45-117) 137 U/L (45-117) Aspartate Amino Transf (AST/SGOT) 28 U/L (15-37) 33 U/L (15-37) Alanine Aminotransferase (ALT/SGPT) 8 U/L (12-78) 8 U/L (12-78) Total Bilirubin 0.3 MG/DL (0.2-1.0) 0.5 MG/DL (0.2-1.0) Sodium Level 145 MEQ/L (136-145) 144 MEQ/L (136-145) Potassium Level 5.3 MEQ/L (3.5-5.1) 5.8 MEQ/L (3.5-5.1) Chloride Level 115 MEQ/L (98-107) 114 MEQ/L (98-107) Carbon Dioxide Level 24.9 MEQ/L (21.0-32.0) 25.1 MEQ/L (21.0-32.0) Anion Gap 5 MEQ/L (5-15) 5 MEQ/L (5-15) Estimat Glomerular Filtration Rate 66 ML/MIN (>89) 46 ML/MIN (>89) Blood Gas Puncture Site RT RADIAL RT RADIAL Blood Gas Patient Temperature 98.6 98.6 Blood Gas HCO3 24 mmol/L (22-26) 22 mmol/L (22-26) Blood Gas Base Excess -4.6 mmol/L (-2-2) -3.2 mmol/L (-2-2) Blood Gas Oxygen Saturation 92 % (90-100) 95 % (90-100) Arterial Blood pH 7.10 (7.380-7.420) 7.34 (7.380-7.420) Arterial Blood Partial Pressure CO2 80 mmHg (38-42) 41 mmHg (38-42) Arterial Blood Partial Pressure O2 87 mmHg (61-120) 111 mmHg (61-120) Arterial Blood Oxygen Content 10.3 Vol % (12.0-20.0) 12.2 Vol % (12.0-20.0) Arterial Blood Carboxyhemoglobin 1.5 % (0-4) 1.8 % (0-4) Arterial Blood Methemoglobin 1.3 % (0-2) 1.2 % (0-2) Blood Gas Hemoglobin 7.9 G/DL (12.0-16.0) 8.9 G/DL (12.0-16.0) Oxygen Delivery Device TPIECE VENTILATOR Blood Gas Liter Flow 6 L/M Blood Gas Inspired Oxygen 100 % 50 % Blood Gas Ventilator Setting SEE COMMENT Phosphorus Level 3.3 MG/DL (2.5-4.9) Magnesium Level 2.0 MG/DL (1.5-2.5) Result Diagram: 04/27/1772904/27/17729 Microbiology Microbiology Date/Time Source Procedure Growth Status 04/27/17 14:07 Blood Peripheral Aerobic Blood Culture Pending Received 04/27/17 14:07 Blood Peripheral Anaerobic Blood Culture Pending Received 04/27/17 14:00 Blood Peripheral Aerobic Blood Culture Pending Received 04/27/17 14:00 Blood Peripheral Anaerobic Blood Culture Pending Received 04/27/17 11:00 Sputum Endotracheal Gram Stain Pending Received 04/27/17 11:00 Sputum Endotracheal Sputum Culture Pending Received Imaging Last 48 hours Impressions Chest X-Ray 04/27/17 0600 Signed Impressions: Service Date/Time: Thursday, April 27, 2017 05:19 - CONCLUSION: Improved aeration. Cornel Harrison MD Chest X-Ray 04/26/17 0000 Signed Impressions: Service Date/Time: April 23:35 - CONCLUSION: Right central venous catheter placement. Worsening appearance of the chest. Cornel Harrison MD Procedures 01/25/2017- Retrievable IVC Filter placement 01/26/17-lumbar puncture with fluoroscopy-by interventional radiology 02/01/17- lumbar puncture fluoroscopy by interventional radiology 02/10/17- Endotracheal Intubation 02/10/17-left IJ central venous line placed 02/10/17-left femoral arterial line placed 02/11/17-Diagnostic and therapeutic bronchoscopy with bronchoalveolar lavage 02/11/17-Left upper extremity incision and debridement with excision of septic cephalic vein 02/13/17- Extubated 02/20/17- endotracheal intubation 02/20/17- Left subclavian central line placement 02/20/17-Right radial A-line placement 02/22/17-EGD/colonoscopy 02/28/17-right radial a line 02/28/17- Endotracheal intubation 02/28/17- right sided introducer catheter placement 02/28/17- Right IJ central line placement 02/28/17-Right chest tube placement 02/28/17- Embolization of inferior and superior sacral branches of right internal iliac artery 03/01/17- Hemodialysis access catheter 03/03/17-Right IJ central line placement 03/11/17-Extubated 03/13/17- Endotracheal intubation 03/14/17-Tracheostomy placement 03/15/17-PEG tube placement 04/13/17-thoracentesis right 600 cc removed 04/13/17-Tracheostomy up-sized to #8 Shiley 04/26/17 Central line placement . Assessment and Plan Disease Oriented Problem List: (1) Acute respiratory failure (2) Septic shock (3) Aspiration pneumonia (4) Acute renal failure (5) CKD (chronic kidney disease) stage 3, GFR 30-59 ml/min (6) Cardiomyopathy (7) DVT of lower extremity, bilateral (8) Thrombophlebitis arm (9) Diabetes mellitus (10) Gout (11) HTN (hypertension) (12) Hyperlipidemia Symptom Scale: (1) Shortness of breath 0-10 Scale: Unable to quantify Comment: Trach upsized to a #8 .Back on mechanical ventilation 12/7/17 . . (2) Debility 0-10 Scale: Unable to quantify Comment: Progressive. . (3) Pain 0-10 Scale: Unable to quantify Comment: History of falls, gout, arthritis, and currently bedbound. . Pertinent Non-Medical Issues Psychosocial:Patient was born and raised in [place], [place]. Patient was once for 20 years, now and has 2 adult sons. 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 He recently resigned due to failing health. Spiritual: No moravian affiliation Legal: Per [place] statutes, in the absence of written advanced directives healthcare proxy decision making falls to the patient's 2 adult children. Patient's son (Davie) lives locally and wishes to participate in the role of the healthcare proxy decision maker. Palliative care has attempted to contact Arnel, has not call back. Patient`s sister Deb and patients brother verbalized that they have been updating Arnel on patient`s medical status. Ethical issues impacting care: No known ethical issues impacting care at this time. . Important Contacts Son-Davie Kerr - Son-Arnel Kerr- -cell -home Sister-Deb Patricio . Prognosis Mr Kerr is a 62 years old male with a past medical history of hypertension, asthma, diabetes, hyperlipidemia, chronic kidney disease and gout. Patient presented to the ED on 01/22/17 complaining of bilateral knee and right arm pain after a mechanical fall 4 or 5 days prior to coming to the ER. Clinical course complicated with increased weakness leading to numerous diagnostic work ups for possible transverse myelitis, DVTs, retroperitoneal hematoma, aspiration pneumonia, intubation x 4 times, septic and hemorrhagic shock requiring support with pressors and multiple pRBC, FFP transfusions as well as platelets and cryo , renal failure requiring hemodialysis and sacral wound Given ongoing comorbidities, and prolonged hospitalization, patient remains at risk for further complications, deterioration and decline. Code Status: Full Code Plan PLAN: Legal decision maker: Patient is currently trached on TPierce and is not able to make any medical decisions for himself at this time. Patient has 2 adult sons Davie Kerr and Arnel Kerr. According to [place] Statute, his two aforementioned sons will serve as his health care proxys. Patient`s son Davie is acting in the role of HCP decision maker independently at this time given that he is the one who is reasonably available for consultation. Goals: 04/27/17 Remain Aggressive. No changes in goals. Telephone call to patient`s son Davie, did not respond lefts message for him to call back. Telephone conversation with Deb-patient`s sister and Arnel- patient`s son updated her on patient`s medical status and changes. No changes of goals form Arnel. Verbalized that she will update patient`s son Davie. CODE STATUS: Full Code SYMPTOMS: * Shortness of breath: Multifactorial. Patient has had aspiration pneumonia. Patient has been intubated 4 times this hospitalization. Patient has a tracheostomy. On duonebs. Patient is also on Hydrocortisone 50mg q 6 hours. Compressor Station Engineer following. Trach up-sized to #8. Patient is s/p CT guided thoracentesis 04/13/17. Tobramycin nebs ordered. Patient placed back on mechanical ventilation, was hypoxic 04/26/17. * Pain: Patient presented initially complaining of pain to right wrist and bilateral knees after a mechanical fall. Patient has a history of gout, arthritis, multiple falls and is currently bedbound. Patient on Oxycodone 5mg q 4 hours ATC. Patient on Hydrocortisone. * Debility: Progressive. Patient has had decline in his health for the past 4 months, including progressively increased weakness and difficulty ambulating and prolonged hospitalization with multiple setbacks. Patient remains at high risk for further physical deconditioning and debility. PT and OT following with patient. PT and OT following. Patient will benefit from getting OOB to a stretcher chair . PT, ST and OT following. Palliative care will continue to follow the patient during hospital course as condition evolves, to assist patient/decision-maker with understanding of their medical conditions, weighing benefits/burdens of treatment options, for clarification of goals of treatment. Additionally will assist with any symptoms of palliative concern. . Attestation To help prompt me to consider important information that might be impacting today's encounter and assessment, information from prior notes written by myself or my colleagues may have been "brought forward" into today's note. My signature on this note, however, is an attestation that I personally performed the exam, history, and/or decision-making noted today, and, unless otherwise indicated, the interactions with patient, family, and staff as well as the review of records all occurred today. I also attest that the listed assessment and stated plan reflect my best clinical judgment today based on the combination of historical information, prior notes, and today's exam/ interactions. When time spent is documented, it refers only to time spent today by the signer, or if indicated, combined time spent today by collaborating physician/nurse practitioner. Aftab Cartwright Apr 27, 2017 15:30
[2017-04-27] MEDS: FLUCONAZOLE 100 MG TAB PO SCH (16:48)
[2017-04-27] MEDS ORDERED: INSULIN HUMAN REGULAR 1,000 UNITS/10 ML VIAL IV PUSH ONE (17:30)
[2017-04-27] MEDS ORDERED: DEXTROSE 50% IN WATER 50 ML SYRINGE IV PUSH ONE (17:30)
[2017-04-27] MEDS ORDERED: SODIUM BICARBONATE 8.4% INJ 50 MEQ/50 ML SYR IV PUSH ONE (17:30)
[2017-04-27 18:50] LABS: BACTERIA, URINE FEW /hpf; BLOOD, URINE MOD (NEG); COMMENT (UR) CATH-CULTURE IND; CULTURE IF INDICATED CATH CULTURE IND; GLUCOSE,URINE NEG (NEG); KETONE, URINE TRACE mg/dL (NEG); NITRITE,URINE NEG (NEG); PH, URINE 5.5 (5.0-8.5); URINE COLOR YELLOW (YELLW/STRAW)
[2017-04-27] MEDS: ATORVASTATIN 10 MG TAB PO SCH (19:43)
[2017-04-27] MEDS: RESP: ALBUTEROL 2.5 MG/IPRATROPIUM 0.5 MG NEB (PRN) NEB (20:11)
[2017-04-27 20:51] LABS: POTASSIUM 5.6 MEQ/L (3.5-5.1)
[2017-04-27] MEDS ORDERED: SODIUM CHLOR 0.9% 1000 ML INJ 1,000 ML IV ONE ×2 (21:30)
[2017-04-28] VITALS (31 sets, daily range): BP systolic 102–126; BP diastolic 59–74; PULSE 97–124; RESP 16–27; TEMP 98.4–100.4; O2SAT 96–100
[2017-04-28] MEDS: INSULIN ASPART SUPPLEMENTAL SCALE SQ SCH ×5 (00:20→23:51)
[2017-04-28] MEDS: VANCOMYCIN 500 MG VIAL (FOR ORAL USE ONLY) PO SCH ×4 (02:34→20:04)
[2017-04-28] MEDS: oxyCODONE HCL ORAL CONC 5 MG/0.25 ML SYRINGE PO SCH ×6 (02:34→21:42)
[2017-04-28] MEDS: SODIUM CHLOR 0.9% 1000 ML INJ 1,000 ML IV SCH ×2 (03:25→16:03)
[2017-04-28 04:05] LABS: AUTOMATED NEUTROPHIL # 12.5 TH/MM3 (1.8-7.7); BASOPHIL # 0.1 TH/MM3 (0-0.2); BASOPHIL % 0.5 % (0.0-2.0); EOSINOPHIL # 1.6 TH/MM3 (0-0.4); EOSINOPHIL % 9.1 % (0.0-4.0); HEMATOCRIT 23.9 % (39.0-51.0); LYMPH % 6.9 % (9.0-44.0); LYMPHOCYTE # 1.2 TH/MM3 (1.0-4.8); MEAN CELL VOLUME 86.8 FL (80.0-100.0); MEAN CORPUSCULAR HEMOGLOBIN 29.6 PG (27.0-34.0); MEAN CORPUSCULAR HGB CONC 34.1 % (32.0-36.0); MONO % 10.2 % (0.0-8.0); NEUT % 73.3 % (16.0-70.0); PLATELET COUNT 293 TH/MM3 (150-450); RED BLOOD COUNT 2.75 MIL/MM3 (4.50-5.90)
[2017-04-28 04:09] LABS: HEMO FLAGS AUTO DIFF
[2017-04-28 04:12] LABS: POTASSIUM 5.6 MEQ/L (3.5-5.1)
[2017-04-28 04:54] LABS: BANDS 1 % (0-6); BASOPHILS 1 % (0-2); CORRECTED NUCLEATED RBC 1 /100 WBC (0-0); EOSINOPHILS 8 % (0-4); METAMYELOCYTES 1 % (0-1); MYELOCYTES 3 % (0-0); NEUTROPHIL # MANUAL DIFF 13.4 TH/MM3 (1.8-7.7); POLYS (SEG NEUTROPHILS) 74 % (16-70); SCAN/DIFF FINAL DIFF MANUAL; WBC DIFF SAMPLE 100
[2017-04-28 04:56] LABS: PLATELET ESTIMATE SMEAR NORMAL (NORMAL); PLATELET MORPHOLOGY NORMAL (NORMAL)
[2017-04-28 04:57] LABS: KERATOCYTES OCC (NORMAL)
[2017-04-28] MEDS: HYDROCORTISONE 10 MG TAB PO SCH ×2 (05:32→18:01)
[2017-04-28] MEDS: TAMSULOSIN HCL 0.4 MG CAP PO SCH ×2 (08:29→20:04)
[2017-04-28] MEDS: SODIUM CHLORIDE 0.9% FLUSH 10 ML FLUSH IV FLUSH SCH ×3 (08:29→20:04)
[2017-04-28] MEDS: CHLORHEXIDINE 0.12% (ORAL KIT) 15 ML CUP MT SCH ×2 (08:29→20:04)
[2017-04-28] MEDS: QUEtiapine FUMARATE 25 MG TAB PO SCH (08:29)
[2017-04-28] MEDS: CHOLESTYRAMINE 4 GM PACKET G-TUBE SCH ×2 (08:29→20:04)
[2017-04-28] MEDS: LACTOBACILLUS ACIDOPHILUS TAB PO SCH ×3 (08:29→18:01)
[2017-04-28] MEDS: LANSOPRAZOLE SOLUTAB 30 MG TAB NG SCH ×2 (08:29→20:04)
[2017-04-28] MEDS: COLLAGENASE OINT 30 GM TUBE TOPICAL SCH (08:30)
[2017-04-28] MEDS: RESP: TOBRAMYCIN SULFATE 80 MG/2 ML NEB NEB SCH ×2 (08:52→20:00)
[2017-04-28] MEDS ORDERED: FUROSEMIDE 40 MG/4 ML VIAL IV PUSH ONE ×2 (10:15→16:00)
[2017-04-28] MEDS ORDERED: INSULIN HUMAN REGULAR 1,000 UNITS/10 ML VIAL IV PUSH ONE (10:15)
[2017-04-28] MEDS ORDERED: SODIUM POLYSTYRENE SULFONATE SUSP 15 GM/60 ML CUP PO ONE ×2 (10:15→14:30)
[2017-04-28] MEDS ORDERED: DEXTROSE 50% IN WATER 50 ML SYRINGE IV PUSH ONE (10:15)
--- NOTE | 2017-04-28 10:22 | HHI.CCPN ---
Subjective Remarks/Hospital Course Date of admission: 01/22 Date of critical care medicine consult 02/10 due to acute hypoxemic respiratory failure requiring emergent intubation 62-year-old male with a past medical history of hypertension, hyperlipidemia, diabetes mellitus, gout, uric acid kidney stones, kidney disease of unknown stage who originally presented to [facility] emergency department on 01/22 after a fall in which he sustained a right distal ulna fracture. He had been experiencing a gradual primarily lower extremity weakness as well as upper extremity weakness that was progressive. Neurology consult was obtained. MRI revealed no acute stroke. He had multifocal white matter changes. Tiny lacunar infarcts of the brainstem. Lumbar MRI report states L4-L5 disc protrusion with cetnral canal stenosis. Dr. Blackwell evaluated and states no cord compression on MRI C/T spine and recommended nonoperative management. Symptoms were felt to be consistent with transverse myelitis and he underwent Solumedrol 250 mg IV q6 hours 01/27-02/02. He also was found to have occlusive thrombus in the bilateral posterior tibial veins. Heparin was being avoided because he had traumatic lumbar puncture on 01/26 and 02/01. IVC filter was placed 01/25. He was undergoing physical therapy, reportedly making some improvements with plan to eventually discharged home with his son (max assist standing, and bed to chair per PT note). Apparently he had some vomiting the evening of 02/09 and additional vomiting on 02/10. He had a fever 102.8 on 02/09. Last recorded bowel movement was 02/03. Tonight he had acute onset of severe hypoxemia and respiratory distress. [facility] called and he was brought emergently to [facility] where his sats were 64% on 100% nonrebreather with mean arterial pressure 44. He was emergently intubated, CVL and art line placed. He is in septic shock. SUBJ: 02/11: Patient remains intubated sedated, critically ill. FiO2 reduced to 80% after increasing PEEP to 12. In severe septic shock Levophed at 16 mcg/m, vasopressin at 0.04 international units. D/W vascular surgery Dr. Enciso. He performed bedside Left upper extremity incision and debridement and excision of septic cephalic vein. 02/12: Remains intubated sedated profoundly septic, in shock on vasopressin and 7 mcg/min Levophed. FiO2 has improved to 45%, WBC count remains elevated with 20 ,000 white count significant left shift. Slight improvement in creatinine 2.9 urine output 750 ml 24 hours. 2-D echo shows LV ejection fraction 20-25%, no vegetation reported. Blood cultures 4 staph aureus. Wound culture pending 02/13: Remains critically ill but stable to improving. WBC count is down to 16, creatinine improving to 2.36. Off all pressors. Urine output also improving. 1.5L in 24 hours 02/14: Extubated 02/13. Tolerating well. WBC now down to 12.8. Creat improving 2.3 to 2. UO 3.4L. remains off all pressors. Was started on Precedex yesterday night for agitation, currently on 0.5 g per KG per hour. Chest x-ray shows left more than right air space disease 02/20/17 Re consult: 62-year-old male who was originally admitted for lower extremity weakness and found to have what was thought to be possible transverse myelitis. His hospital course his included a healthcare associated pneumonia, septic thrombophlebitis, DVT. He was most recently in the hospital floor where he had significant nausea and vomiting and diarrhea. His C. difficile test was recently negative. However, he has experienced worsening acute on chronic renal failure, hypotension, tachycardia, and severe hypoxemia. He did have a bout of vomiting earlier today, and his hospitalist attending suspects that he may have aspirated. He arrives by rapid response to the ICU with a nonrebreather in place in severe respiratory distress with SPO2 of 85%. I emergently intubate the patient, see separate procedure note for details. At this point the patient was hypotensive and tachycardic. He does have a history of an EF of 20%, however clinically he appears in florid septic shock. I placed central line and arterial line started vasopressors and gentle IV fluid resuscitation with 1 L of LR. Patient today was empirically broadened to vancomycin and Zosyn from his oxacillin which was initially treating MSSA bacteremia. He is recultured. Critical-care medicine is consulted to evaluate and manage his worsening multiorgan system failure and decompensated septic shock 02/21: Patient remains intubated sedated. Becomes anxious tachypnea on sedation lightening. Chest x-ray shows mild left lower lobe infiltrate. WBC count is slightly improved today from 23.2 t0 21. C Diff negative. UO adequate, creat slightly worsening. 1.57 today 02/22: Remains intubated sedated tolerated CPAP yesterday, plan is for EGD/ Colonscopy. WBC count back to normal. UO adequate. Creat stable 02/23: Tolerating CPAP trials following commands. Will do a spontaneous breathing trials. Status post EGD colonoscopy yesterday -Gastritis, esophagitis. Diverticulosis and multiple polyps. Urine output adequate but creatinine increasing to 1.7 with patient requiring multiple straight catheterization. We'll reinsert Sloan. 02/24: Breathing comfortably 24 hours after extubation. Protects airway well. 02/25: Excoriate bottom, will place rectal FMS. Start pureed diet. 02/26: Afebrile. Complaining of nausea and vomiting this afternoon. Increased stool output. Continue potassium replacement today. 02/27: 10 PM overnight, acutely hypotensive. Received 3 units PRBCs. Antibiotic coverage broadened to piperacillin/tazobactam, cortisol and 1 dose of vancomycin. Oxacillin drip currently on hold. Symptomatically, patient continues to vague abdominal pain/nausea vomiting which is unchanged for the past several days. Lipase elevated yesterday. Lactic acid normal. Troponin normal. Urinary retention after removal of Sloan. Straight catheter 1300. Cc 02/28: New diagnosis large retroperitoneal hematoma. Received 10 PRBC, 14 FFP, 2 platelets, 1 cryo-, 6 g calcium chloride, 2 is magnesium sulfate and 4 mg Bumex. CTA abdomen revealed possible arterial bleeds iliac, lumbar. Patient is currently on norepinephrine and epinephrine drips and possible need right nephrostomy tube placement due to large hematoma compressing ureter. Intra-abdominal bladder pressures are currently 13 03/01: Afebrile. Received 25 g albumin and 1 unit PRBCs overnight. Intra- abdominal bladder pressures currently 19. Currently on 3 micrograms per minute of norepinephrine. [id number] 1 out of 4 on 4 mics grams per kilogram per minute of cisatracurium. 03/02: Slightly hypothermic overnight. Hemoglobin appears to have stabilized. Troponin bump overnight likely secondary to demand ischemia from hypotension. Hemodynamically stable off all vasopressors. 03/03: Received 1 PRBCs overnight. 3 units currently. Off all vasopressors. Likely rebleeding. Stool is dark. 03/04: Remains unstable. Ventilator dependent. 03/05: afebrile. hgb stable. 03/06: bumex drip started overnight. good uop after bumex initiated. still grossly volume overloaded. Cr downtrending. more awake with transition to propofol. still too volume overloaded to tolerate extubation. hgb stable. 03/07: Afebrile. Tolerating tube feeds at goal with Nepro. Positive BM. On low-dose fentanyl and propofol drips. Potassium currently being replaced. 03/08: Eyes will open on ventilator. Afebrile. Tolerating tube feeding. Failed PSV trial yesterday due to apnea. 03/09: Following commands. Tmax 101. Tolerating tube feeding. One hour PSV trial yesterday. Currently tolerating well so far today 1.5 hours 03/10: Low-grade temperatures. Tolerating PSV trial 10 hours yesterday. Currently at 5/5 at 35%. We'll probably attempt extubation a.m. after hemodialysis. 03/11: Extubated currently in 4 L nasal cannula. Thick secretions thick clear with cough. Currently afebrile. Tolerating diet previously. 03/12: Sleepy this morning but arouses. Following commands. Refusing diet at the present time. On 2 L nasal cannula. 03/13: Patient reintubated last night for worsening respiratory status. Currently sedated on mechanical ventilation. Became hypotensive following intubation and is on Levophed 20 mics per minute. 03/14: Sedated, orally intubated on mech vent at the time of my evaluation this AM, subsequently underwent perc trach placement. Remains on levophed for pressor support. Transfused 1 unit PRBCs today. Persisten 03/15: Trach site clean, dry. CXR with bilateral basilar infiltrates. 03/16: Pulmonary congestion persists. Clinical condition not improving. Prognosis becoming increasingly bleak. 03/17: Glucose intolerance worse. No improvement in neurological function. 03/18: Remains on mechanical ventilation via tracheostomy. Off pressors now. Neurologic status remains poor. 03/19: Drowsy, encephalopathic, arousable. On mechanical ventilation via tracheostomy. Levemir increased for hyperglycemia today. Remains off pressors 03/20: More awake, moves both upper extremities. On mechanical ventilation via tracheostomy. Daily C Pap trials ongoing. 03/21: Awake and alert. On mechanical ventilation via tracheostomy. Opens and closes eyes on command. 03/22: Awake and alert. Tolerated T PIECE for 7 hours yesterday. Dialyzed today. 03/23: Currently on T piece trial. Status post dialysis yesterday on 3 L. Awake and alert. Wants to eat. Subjective 03/24: Currently afebrile. Hemodialysis catheter discontinued yesterday from left IJ. Persistent leukocytosis noted. Potassium will be replaced. Furosemide 40 mg twice a day IV to 20 mg IV twice a day 03/25: WBC count unchanged. Patient on T piece with humidified air greater than 48 hours, tolerating it well. Reconsulted 04/12: The patient was transferred emergently from the floor/ [facility]. Patient was initially seen by director of human resources Dr. Estrada, and the patient was noted to be tachypneic on T piece of 40%. ABGs were performed which showed a PaO2 of 60 on T piece of FiO2 of 40%. Chest x-ray was performed which showed loss of entire left hemidiaphragm physician assistant primary care consolidation in the left lower lobe. Concern for mucus plugging versus fluid. The patient was transferred emergently to [facility] placed on a ventilator CT of the chest is pending. Upon arrival in the room the patient is alert and oriented, mouthing words, nodding head to yes and no questions O2 sat is 100% but patient is currently on mechanical ventilation. Currently in no respiratory distress. 04/13: Tmax 99.8. The patient's oxygen requirements have decreased currently FiO2 35% with a PaO2 1 blood gas of 85, O2 saturation 100%. No respiratory distress noted. Patient underwent CT of the chest yesterday noted pleural effusions left greater than right, diagnostic/and therapeutic CT thoracentesis plan for this a.m.. 04/14: Patient underwent CT-guided thoracentesis of the right side with approximately 600 cc withdrawn. Today director of human resources Dr. LABOY in and up size indwelling 6.0 Shiley to a 8.0 Shiley. Minimal bleeding noted around the site. X-ray improving. Patient started on CPAP trials today, as well as tube feeds were initiated. 04/15: Placed on T piece this morning via tracheostomy. Appears to be tolerating it. Laying in bed not in any acute distress. 04/16: Awake and alert. Tolerating T piece. Tolerating PEG feeds. 04/17: Awake and alert. Tolerating T piece. Tolerating tube feeds via PEG 04/18: Awake and alert. Tolerating TPs. Tolerating tube feeds. Passed swallow eval 04/19: Awake and alert. Remains on T piece. Wants to move out of ICU as he indicates to me once again as he has for the past few days. Awaiting CIC bed 04/20: Awake and alert. Remains on T piece. Developed hypotension last night for which she was transiently on Levophed however has been off since early this morning. ID adjusting antibiotics and working up for new sepsis. 04/21: Awake and alert. On T piece. Awaiting [facility]IC bed for the last few days. 04/22: Awake and alert. Remains on T piece. Received 500 cc normal saline this morning for tachycardia. 04/23 No events overnight. Remains on TP's with 35% FIO2. Afebrile. 04/24: Resting comfortably. Got short of breath with Passy-Rafy valve which was taken off. 04/25: Remains on T piece. Awaiting transfer out of ICU. 04/26: Remains on T piece. Still awaiting transfer out of ICU since 04/17. 04/27 Patient became hypotensive, bradycardic and hypoxic, ABG on TP's last night showed acute hypercapnic resp acidosis (PH 7.10, CO2: 80) he was subsequently placed on mechanical ventilator. Patient was given Albumin, 2u PRBC and started on Levophed 3mics. Renal function worse today with Cr: 1.53 from 1.13 04/28 No events overnight off Levophed since yesterday. On no sedation. Afebrile. Objective Vital Signs Date Time Temp Pulse Resp B/P (MAP) Pulse Ox O2 Delivery O2 Flow Rate FiO2 04/28/17 10:00 109 04/28/17 08:02 98 40 04/28/17 07:00 Mechanical Ventilator 04/28/17 04:00 98.6 20 102/61 (75) 04/26/17 20:22 6.00 Intake and Output 04/28/17 04/28/17 04/28/17 07:59 15:59 23:59 Intake Total 1602 ml Output Total 1350 ml Balance 252 ml Result Diagram: 04/28/17 0330 04/28/17 0330 Other Results Laboratory Tests Test 04/27/17 14:30 04/27/17 16:00 04/27/17 20:00 04/28/17 03:30 Urine Color YELLOW Urine Turbidity HAZY Urine pH 5.5 Urine Specific [place] 1.021 Urine Protein 100 mg/dL Urine Glucose (UA) NEG mg/dL Urine Ketones TRACE mg/dL Urine Occult Blood MOD Urine Nitrite NEG Urine Bilirubin NEG Urine Urobilinogen 2.0 MG/DL Urine Leukocyte Esterase LARGE Urine RBC 24 /hpf Urine WBC /hpf Urine WBC Clumps MANY Urine Bacteria FEW /hpf Microscopic Urinalysis Comment CATH-CULTURE IND Potassium Level 5.8 MEQ/L 5.6 MEQ/L 5.6 MEQ/L Blood Urea Nitrogen 56 MG/DL 56 MG/DL Creatinine 1.67 MG/DL 1.60 MG/DL Random Glucose 214 MG/DL 171 MG/DL Calcium Level 9.8 MG/DL 9.9 MG/DL Sodium Level 145 MEQ/L 146 MEQ/L Chloride Level 114 MEQ/L 115 MEQ/L Carbon Dioxide Level 27.0 MEQ/L 26.0 MEQ/L Anion Gap 4 MEQ/L 5 MEQ/L Estimat Glomerular Filtration Rate 42 ML/MIN 44 ML/MIN White Blood Count 17.0 TH/MM3 Red Blood Count 2.75 MIL/MM3 Hemoglobin 8.1 GM/DL Hematocrit 23.9 % Mean Corpuscular Volume 86.8 FL Mean Corpuscular Hemoglobin 29.6 PG Mean Corpuscular Hemoglobin Concent 34.1 % Red Cell Distribution Width 17.0 % Platelet Count 293 TH/MM3 Mean Platelet Volume 8.0 FL Neutrophils (%) (Auto) 73.3 % Lymphocytes (%) (Auto) 6.9 % Monocytes (%) (Auto) 10.2 % Eosinophils (%) (Auto) 9.1 % Basophils (%) (Auto) 0.5 % Neutrophils # (Auto) 12.5 TH/MM3 Lymphocytes # (Auto) 1.2 TH/MM3 Monocytes # (Auto) 1.7 TH/MM3 Eosinophils # (Auto) 1.6 TH/MM3 Basophils # (Auto) 0.1 TH/MM3 CBC Comment AUTO DIFF Differential Total Cells Counted 100 Neutrophils % (Manual) 74 % Band Neutrophils % 1 % Lymphocytes % 7 % Monocytes % 5 % Eosinophils % 8 % Basophils % 1 % Neutrophils # (Manual) 13.4 TH/MM3 Metamyelocytes 1 % Myelocytes 3 % Nucleated Red Blood Cells 1 /100 WBC Differential Comment FINAL DIFF MANUAL Platelet Estimate NORMAL Platelet Morphology Comment NORMAL Keratocytes OCC Phosphorus Level 3.0 MG/DL Magnesium Level 2.0 MG/DL Imaging Last Impressions Chest X-Ray 04/27/17 0600 Signed Impressions: Service Date/Time: Thursday, April 27, 2017 05:19 - CONCLUSION: Improved aeration. Cornel Harrison MD Thoracentesis 04/13/17 1054 Signed Impressions: Service Date/Time: Thursday, April 13, 2017 15:26 - CONCLUSION: Uncomplicated CT-guided right thoracentesis. Candido Mendoza Jr., MD Chest CT 04/12/17 1558 Signed Impressions: Service Date/Time: March 17:51 - CONCLUSION: 1. Slight increase in size of bilateral effusions and basilar atelectasis, left greater than right compared with February 27. Tracheostomy in good position. Trace Holloway MD Renal Ultrasound 04/02/17 0000 Signed Impressions: Service Date/Time: Sunday, April 02, 2017 16:59 - CONCLUSION: Limited exam with the left kidney being unable to be evaluated in the bladder not distended. There do appear to be multiple shadowing stones at the right kidney without hydronephrosis. Angelo Manzo MD Wrist X-Ray 03/27/17 0000 Signed Impressions: Service Date/Time: Monday, March 27, 2017 13:21 - CONCLUSION: 1. No acute fracture is identified. A portion of the previously documented distal ulna fracture remains visualized. 2. 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 Angelo Allen MD Aortography 02/28/17 0000 Signed Impressions: Service Date/Time: Tuesday, February 28, 2017 08:01 - CONCLUSION: 1. Active hemorrhage from distal right lateral sacral and iliolumbar branches successfully coil and Gelfoam embolized, as above. Juan Bhakta MD Abdomen/Pelvis CT 02/28/17 0000 Signed Impressions: Service Date/Time: Tuesday, February 28, 2017 06:51 - CONCLUSION: 1. The right retroperitoneal hematoma has increased in size, as above. There are 2 serpiginous arterially enhancing structures visualized, one in the right psoas muscle and another extending into the hematoma at the right iliac fossa. These could represent sites of continued active bleeding. 2. Stable moderate size left and small right pleural effusion with associated compressive atelectasis. 3. Stable small volume of free fluid in the abdomen and pelvis. There is also anasarca. The findings concerning the retroperitoneal hematoma were discussed with Dr. Aguiar via telephone at approximately 7: 10 AM on 02/28/2017. Angelo Allen MD Abdomen X-Ray 02/26/17 Signed Impressions: Service Date/Time: Sunday, February 26, 2017 14:52 - CONCLUSION: 1. Nonobstructive bowel gas pattern. Juan Bhakta MD Upper Extremity Ultrasound 02/10/17 0000 Signed Impressions: Service Date/Time: Friday, February 10, 2017 18:46 - CONCLUSION: Occlusive thrombus in the cephalic and basilic veins. Benjamin Person MD Lung Scan- Nuclear Medicine 02/10/17 Signed Impressions: Service Date/Time: Friday, February 10, 2017 22:17 - CONCLUSION: Low probability pulmonary embolism. Candido Patton MD Head CT 02/10/17 0000 Signed Impressions: Service Date/Time: Friday, February 10, 2017 23:51 - CONCLUSION: Negative noncontrast CT brain. Candido Patton MD Lumbar Puncture Fluoroscopy 02/01/17 0000 Signed Impressions: Service Date/Time: January 09:35 - CONCLUSION: Uncomplicated fluoroscopically guided lumbar puncture. CSF was clear. Nabeel Peralta MD Head Magnetic Resonance Angiography 01/27/17 0000 Signed Impressions: Service Date/Time: Friday, January 27, 2017 10:33 - CONCLUSION: No intracranial vascular abnormality is identified. There is no aneurysm visualized. Angelo Allen MD IVC Filter Placement X-Ray 01/25/17 0000 Signed Impressions: Service Date/Time: January 10:29 - CONCLUSION: Uncomplicated inferior vena cava filter placement as above. Yung Fowler MD Thoracic Spine MRI 01/24/17 0000 Signed Impressions: Service Date/Time: Tuesday, January 24, 2017 22:29 - CONCLUSION: 1. Mild degenerative spondylosis most prominently at T11-L1 with slight effacement of the anterior thecal sac and left lateral recess. No significant neural foraminal stenosis. 2. No acute fracture. Juan Bhakta MD Lumbar Spine MRI 01/23/17 0000 Signed Impressions: Service Date/Time: Monday, January 23, 2017 17:01 - CONCLUSION: 1. At L4-5 is a broad-based disc protrusion with severe central canal and lateral recess stenosis and flattening of the exiting right L4 nerve root. 2. L5-S1 there is a disc protrusion and moderate stenosis with flattening of the exiting L5 nerve roots bilaterally. 3. At L3-4 there is a moderate to severe central stenosis and lateral recess stenosis with mild foraminal stenosis. 4. No acute fracture or spondylolisthesis. Trace Holloway MD Lower Extremity Ultrasound 01/23/17 Signed Impressions: Service Date/Time: Monday, January 23, 2017 09:53 - CONCLUSION: Bilateral focal lower extremity DVT involving the posterior tibial veins. Angelo Garrido MD Cervical Spine MRI 01/23/17 Signed Impressions: Service Date/Time: Monday, January 23, 2017 17:01 - CONCLUSION: 1. Multilevel cervical spine degenerative changes as above. 2. Mild degrees of spinal stenosis at C3/C4-C6/C7. No cord compression or cord signal abnormality. 3. Age indeterminate left paracentral/foraminal disc protrusion at C6/C7. 4. Multilevel foraminal stenosis, most severe on the left at C6/C7. Please see individual levels above. 5. No fracture or subluxation of the cervical spine. Angelo Garrido MD Brain MRI 01/23/17 Signed Impressions: Service Date/Time: Monday, January 23, 2017 17:01 - CONCLUSION: 1. No acute stroke or other acute intracranial abnormality demonstrated. 2. Moderate severity chronic white matter changes, nonspecific but most likely related to chronic small vessel disease. 3. Few scattered tiny lacunar infarcts of the brainstem. 4. Given the findings are not entirely specific, clinical evaluation for possible multiple sclerosis recommended. Angelo Garrido MD Knee X-Ray [id number] Signed Impressions: Service Date/Time: Sunday, January 22, 2017 21:17 - CONCLUSION: 1. Evidence of moderate to large joint effusion. 2. No acute fracture or malalignment. 3. Mild 3 compartment osteoarthritic change. Benjamin Person MD Hip and Pelvis X-Ray [id number] Signed Impressions: Service Date/Time: Sunday, January 22, 2017 21:10 - CONCLUSION: 1. Mild to moderate degenerative change of both hips with no acute fracture or malalignment. There is flattening and remodeling of the right humeral head. Benjamin Person MD Objective Remarks GENERAL: 62-year-old male, resting in bed, on mechanical ventilation via trach HEENT: Normocephalic. Atraumatic. Pupils equal, round, reactive. NECK: Tracheostomy in place, around trach site erythematous, yellowish drainage CHEST: b/l equal air entry decreased bilaterally . Scattered rhonchi, no wheezing CARDIOVASCULAR: S1-S2 regular, no gallop or murmur ABDOMEN distended. No rigidity. Umbilical hernia is reducible. No guarding. PEG tube in place : Positive scrotal edema Sloan in situ MUSCULOSKELETAL: Pulses 2+. 1+ bilateral upper and lower extremity edema. NEUROLOGICAL: Awake and alert, has spontaneous eye opening. Opens and closes eyes on command. Moves 4 limbs weakly to stimulation. Procedures 01/25/2017- Retrievable IVC Filter placement 01/26/17-lumbar puncture with fluoroscopy-by interventional radiology 02/01/17- lumbar puncture fluoroscopy by interventional radiology 02/10/17- Endotracheal Intubation 02/10/17-left IJ central venous line placed 02/10/17-left femoral arterial line placed 02/11/17-Diagnostic and therapeutic bronchoscopy with bronchoalveolar lavage 02/11/17-Left upper extremity incision and debridement with excision of septic cephalic vein 02/13/17- Extubated 02/20/17- endotracheal intubation 02/20/17- Left subclavian central line placement 02/20/17-Right radial A-line placement 02/22/17-EGD/colonoscopy 02/28/17-right radial a line 02/28/17- Endotracheal intubation 02/28/17- right sided introducer catheter placement 02/28/17- Right IJ central line placement 02/28/17-Right chest tube placement 02/28/17- Embolization of inferior and superior sacral branches of right internal iliac artery 03/01/17- Hemodialysis access catheter 03/03/17-Right IJ central line placement 03/11/17-Extubated 03/13/17- Endotracheal intubation 03/14/17-Tracheostomy placement, trach downsized to 6.0 Anni 03/30/17 03/15/17-PEG tube placement 04/11/17-CT Chest 04/13/17-thoracentesis right 600 cc removed Date of Insertion: Feb 20, 2017 Date of Insertion: Mar 03, 2017 Line: Central Venous Catheter Side: Right Location: Internal, Jugular A/P Problem List: (1) Septic shock ICD Code: A41.9 - Sepsis, unspecified organism; R65.21 - Severe sepsis with septic shock Status: Acute (2) Acute respiratory failure ICD Code: J96.00 - Acute respiratory failure, unspecified whether with hypoxia or hypercapnia Status: Acute (3) Thrombophlebitis arm ICD Code: I80.8 - Phlebitis and thrombophlebitis of other sites (4) Aspiration pneumonia ICD Code: J69.0 - Pneumonitis due to inhalation of food and vomit Status: Acute (5) Atelectasis of left lung ICD Code: J98.11 - Atelectasis Status: Acute (6) Quadriparesis ICD Code: G82.50 - Quadriplegia, unspecified Status: Acute (7) DVT (deep venous thrombosis) ICD Code: I82.409 - Acute embolism and thrombosis of unspecified deep veins of unspecified lower extremity (8) Altered mental status ICD Code: R41.82 - Altered mental status, unspecified Status: Acute (9) CKD (chronic kidney disease) stage 3, GFR 30-59 ml/min ICD Code: N18.3 - Chronic kidney disease, stage 3 (moderate) Status: Chronic (10) Acute renal failure ICD Code: N17.9 - Acute kidney failure, unspecified Status: Acute (11) Diabetes mellitus ICD Code: E11.9 - Type 2 diabetes mellitus without complications Status: Chronic (12) Distal end of ulna fracture, closed ICD Code: S52.609A - Unspecified fracture of lower end of unspecified ulna, initial encounter for closed fracture Status: Acute (13) Gout ICD Code: M10.9 - Gout, unspecified Status: Chronic Assessment and Plan Assessment: NEURO/PSYCH: Acute metabolic encephalopathy- persistent Quadriparesis secondary to suspected transverse myelitis Recurrent falls On no sedation. Monitor neuro status. Suspected transverse myelitis. Received methylprednisolone 250 mg IV every 6 hours 01/27-02/02, started back on hydrocortisone 02/21/17, initially tapering to 50 mg IV every 8 hours starting received 1 dose at 2100 prior to becoming hypotensive. weaning hydrocortisone taper and stopped 03/09. Resumed hydrocortisone 50mg IV Q6hrly on 03/14 as patient became hypotensive following intubation on 03/13 requiring levophed. Continue Cortef 10mg Q12 LP 01/26 and 02/01. CSF culture negative 01/26, 02/01 Oligoclonal bands negative. CSF/serum IgG index is not elevated. VDRL nonreactive. Cryptococcal antigen negative. Brain MRI 01/23 no acute stroke. Few scattered lacunar infarcts of the brainstem. Moderate chronic white matter changes. MRI cervical/thoracic spine- mild spinal stenosis C3/C4 to C6/C7. No cord compression. RPR negative Neurology has been following, Dr. Crenshaw. Repeat CT brain 02/10 - negative Continue PT/OT Continue oxycodone 10 mg every 4 hours scheduled RESP: Acute hypoxemic respiratory failure Healthcare associated pneumonia/Aspiration Pneumonia S/P Right-sided chest tube 02/28 Continue with vent support keep sat >92% Bronchodilators, pulm toilet, trach care Failed attempt to wean successfully due to volume overload and multiple organ failure. underwent perc tracheostomy 03/14. Pulmonology following Dr. Estrada - 04/13 CT guided thoracentesis scheduled emergently as discussed with Dr. Estrada - 600cc removed (right) 04/14-tracheostomy up sized to 8.0 [place] by director of human resources Dr. Estrada at bedside CV: Systolic heart failure likely chronic with ejection fraction 20-25% Hyperlipidemia History of hypertension Mild TR Sinus tachycardia Elevated troponin likely type II demand ischemia Monitor HR and BP keep MAP>65mmHg Off Levophed Atorvastatin 10 mg by mouth daily for dyslipidemia. 2-D echocardiogram 01/11 revealed EF 20-25%. Mild TR. Pulmonary arterial pressures were normal around 20 GI: Large right retroperitoneal hematoma Erosive esophagitis Adematous/hyperplastic colon polyps Severe acute protein calorie malnutrition Nausea/vomiting - resolved. Diarrhea Gastritis Diverticulosis Internal and external hemorrhoids Hiatal hernia Elevated lipase Continue tube feeds- on Glucerna 1.5 @65ml/hr 02/27 CT chest/abdomen and pelvis - 9.4 x 7.5 renal and 16 x 12 cm right psoas muscle hematoma. Fluid around liver and spleen. Right-sided nephrolithiasis CTA abdomen 02/28 - possible blushing around iliac/lumbar vessels Discussed with IR. s/p attempted embolization CT abdomen and pelvis 02/10 atrophic left kidney. Bilateral inguinal hernias fat- containing. Nonobstructing 12 mm right kidney stone repeat CT abd/pelvis did not show evidence of obstruction. patient clinically has been having diarrhea (c. diff negative 02/19). also with nausea/vomiting of unclear etiology. EGD/Colonoscopy-02/22/17 showed gastritis esophagitis, hiatal hernia, diverticulosis and multiple polyps in descending colon and sigmoid which were snared biopsied. Biopsy pending Status post PEG tube placement Lansoprazole 30 mg twice a day for GI prophylaxis FEN/RENAL: Acute kidney injury in the setting of Chronic kidney disease stage 3-4 History of uric acid kidney stones with prior stent BPH Nonfunctioning left kidney Monitor renal function, electrolytes replacement as needed On NS@75ml/hr. Cr: 1.60 Will give 7u IV insulin, D50, Kayexalate for K 5.8. Will add Free water 250ml Q8, monitor sodium level. RIOS/SPEP negative. 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 Recommended nephrostomy tube if obstruction Nephrology consulted, off hemodialysis. Making urine. ICU electrolyte replacement protocol Last IHD was 03/22 ID: Septic shock- resolved. Abscess and Suppurative thrombophlebitis left upper extremity MSSA bacteremia Klebsiella UTI ESBL positive Acute aspiration pneumonia/HCAP Previously treated with Bactrim, ertapenem, intermittent vancomycin, nafcillin Blood cultures 2, UA ESBL positive Klebsiella UTI Sputum 03/14 - Pseudomonas came back resistant to imipenem, Stenotrophomonas maltophilia Antibiotics per ID. on Tobra nebs, PO Vanco and Diflucan. Meropenem discontinued on 04/23. ID-Dr. Edwards. Follow up on BC, urine and sputum cx from 04/27: NGTD HEME: Acute blood loss anemia DVT, bilateral posterior tibial vein, IVC filter Septic thrombophlebitis with occlusive thrombus mid cephalic and basilic vein side Monitor CBC s/p transfusion 2units PRBC overnight ( 04/26) Received 10 PRBC, 14 FFP, 2 platelets, 1 cryo-02/28 Received 3 units PRBCs Ultrasound 01/23/17 - Bilateral lower extremity with occlusive posterior tibial vein DVTs. Heparin was initially started for DVT but was placed on hold due to LP with suspected traumatic tap. Currently holding full anticoagulation with enoxaparin 100 mg IV twice a day due to anemia as of 02/26 IVC filter was placed 01/25/17. Ultrasound LUE 02/10 occlusive thrombus mid cephalic vein, basilic vein.s. Transfuse 3 units PRBCs 02/27 Transfuse 2 units PRBCs 03/01. Transfused 1 unit PRBCs on 03/14 ENDO: Diabetes mellitus Hypoglycemia History of prior adrenal insufficiency with shock Gout Accu-Cheks to maintain euglycemia Novulin R every 4 hours. Low Regimen MSK: Right distal ulna fracture. Recommended nonoperative management. PROPH: Lansoprazole 30 mg twice a day twice a day for stress ulcer prophylaxis. Has IVC filter. Therapeutic enoxaparin was placed on hold for retroperitoneal hematoma ACCESS: Right subclavian CVP placed 04/27 Dispo: Discussed with [employer] at bedside Level 3 Problem Qualifiers (1) Aspiration pneumonia: (2) DVT (deep venous thrombosis): Qualified Codes: I82.443 - Acute embolism and thrombosis of tibial vein, bilateral (3) Acute renal failure: Qualified Codes: N17.9 - Acute kidney failure, unspecified (4) Diabetes mellitus: (5) Gout: Hood Madera MD Apr 28, 2017 10:21
[2017-04-28 12:41] LABS: BLOOD GAS BASE EXCESS -1.2 mmol/L (-2-2); BLOOD GAS CARBOXYHEMOGLOBIN 1.4 % (0-4); BLOOD GAS HCO3 24 mmol/L (22-26); BLOOD GAS METHEMOGLOBIN 1.2 % (0-2); BLOOD GAS O2 HGB SATURATION 95 % (90-100); BLOOD GAS OXYGEN CONTENT 11.5 Vol % (12.0-20.0); BLOOD GAS PCO2 45 mmHg (38-42); BLOOD GAS PO2 102 mmHg (61-120); BLOOD GAS TOTAL HGB 8.4 G/DL (12.0-16.0); TEMP CORR TO 98.6
[2017-04-28 12:42] LABS: CRITICAL VALUE NO; OXYGEN DEVICE VENTILATOR
[2017-04-28 12:43] LABS: DRAW SITE RT RADIAL; FIO2 40 %
[2017-04-28 12:44] LABS: NUMBER OF ARTERIAL PUNCTURES 1; STAT NO; ULNAR PULSE PRESENT
--- NOTE | 2017-04-28 13:46 | HHI.PR ---
Subjective Remarks worse went to shock and back on vent today he is getting better Objective Vital Signs Date Time Temp Pulse Resp B/P (MAP) Pulse Ox O2 Delivery O2 Flow Rate FiO2 04/28/17 12:30 111 24 113/66 (82) 98 04/28/17 12:29 98 40 04/28/17 12:00 40 04/28/17 12:00 110 04/28/17 12:00 99.1 110 21 108/63 (78) 98 04/28/17 11:30 114 21 110/65 (80) 98 04/28/17 11:00 111 21 112/64 (80) 98 04/28/17 10:00 109 27 105/59 (74) 98 04/28/17 10:00 109 04/28/17 09:30 109 22 110/64 (79) 98 04/28/17 09:00 109 22 108/63 (78) 98 04/28/17 08:50 40 04/28/17 08:30 107 20 114/69 (84) 98 04/28/17 08:02 98 40 04/28/17 08:00 40 04/28/17 08:00 99.1 104 20 114/66 (82) 98 04/28/17 08:00 104 04/28/17 07:30 105 19 107/67 (80) 98 04/28/17 07:00 98 Mechanical Ventilator 40 04/28/17 07:00 101 21 107/62 (77) 98 04/28/17 06:00 100 04/28/17 04:12 100 40 04/28/17 04:00 97 04/28/17 04:00 98.6 97 20 102/61 (75) 99 04/28/17 04:00 40 04/28/17 02:00 102 04/28/17 00:00 98.4 103 16 103/59 (74) 96 04/28/17 00:00 40 04/28/17 00:00 103 04/27/17 23:28 99 40 04/27/17 22:00 102 04/27/17 20:07 99 40 04/27/17 20:00 98.0 102 20 102/59 (73) 99 04/27/17 20:00 102 04/27/17 20:00 40 04/27/17 19:00 99 Mechanical Ventilator 40 04/27/17 18:00 109 04/27/17 18:00 109 25 107/59 (75) 98 04/27/17 17:00 100 21 93/56 (68) 99 04/27/17 16:00 107 04/27/17 16:00 40 04/27/17 16:00 98.8 107 26 101/62 (75) 99 04/27/17 15:19 98 40 04/27/17 15:00 109 25 104/59 (74) 98 04/27/17 14:00 111 04/27/17 14:00 111 28 107/62 (77) 98 I/O 04/27/17 04/27/17 04/27/17 04/28/17 04/28/17 04/28/17 07:00 15:00 23:00 07:00 15:00 23:00 Intake Total 2088 ml 35 ml 3054 ml 1602 ml Output Total 400 ml 425 ml 1350 ml Balance 1688 ml 35 ml 2629 ml 252 ml IV Total 672 ml 35 ml 2368 ml 804 ml Tube Feeding 416 ml 686 ml 698 ml Packed Cells 800 ml Blood Product IV Normal Saline Flush 80 ml Other 120 ml 100 ml Output Urine Total 100 ml 125 ml 150 ml Stool Total 300 ml 300 ml 1200 ml Result Diagram: 04/28/1732904/28/17329 Objective Remarks GA: nad trach in place, on vent lungs: clear, dec bs over bases Heart: s1, S2 Abd: soft Neuro : no Change, Ext: pos for edema, no cyanosis Assessment and Plan Assessment and Plan 1: S/p shock 2. VDRF 3. volume overload 4. poor prognosis overall 5. Hypotension better 6. Sever Deconditioning Discussed with customer experience analyst in details cont current tx plan not ready to be weaned off ventilator diuresis avoid volume overload broad spectrum abx pressors as indicated hemodynamically I don't think he is candidate for decannulation in near future I don't recommend downsizing anytime soon after discussion with Dr. Austin and we agreed that he is to manage his pulmonary/critical care issues thus I will sign off Please call me as needed Rishabh Estrada MD Apr 28, 2017 13:46
[2017-04-28] MEDS: FREE WATER G-TUBE SCH ×2 (13:51→20:05)
[2017-04-28] MEDS: FLUCONAZOLE 100 MG TAB PO SCH (14:15)
[2017-04-28] MEDS: ACETAMINOPHEN 650 MG/20.3 ML UDC PO PRN (20:04)
[2017-04-28] MEDS: ATORVASTATIN 10 MG TAB PO SCH (20:04)
[2017-04-28] MEDS: RESP: ALBUTEROL 2.5 MG/IPRATROPIUM 0.5 MG NEB (PRN) NEB (20:47)
[2017-04-29] VITALS (30 sets, daily range): BP systolic 93–126; BP diastolic 58–70; PULSE 104–121; RESP 19–27; TEMP 98.7–99.8; O2SAT 98–100
[2017-04-29] MEDS: oxyCODONE HCL ORAL CONC 5 MG/0.25 ML SYRINGE PO SCH ×6 (02:49→22:48)
[2017-04-29] MEDS: VANCOMYCIN 500 MG VIAL (FOR ORAL USE ONLY) PO SCH ×4 (02:49→20:17)
[2017-04-29] MEDS: FREE WATER G-TUBE SCH ×3 (03:59→22:00)
[2017-04-29] MEDS: HYDROCORTISONE 10 MG TAB PO SCH ×2 (04:00→18:06)
[2017-04-29 04:31] LABS: AUTOMATED NEUTROPHIL # 14.3 TH/MM3 (1.8-7.7); BASOPHIL # 0.1 TH/MM3 (0-0.2); BASOPHIL % 0.4 % (0.0-2.0); EOSINOPHIL # 2.1 TH/MM3 (0-0.4); EOSINOPHIL % 10.2 % (0.0-4.0); HEMATOCRIT 25.5 % (39.0-51.0); LYMPH % 7.6 % (9.0-44.0); LYMPHOCYTE # 1.6 TH/MM3 (1.0-4.8); MEAN CELL VOLUME 86.2 FL (80.0-100.0); MEAN CORPUSCULAR HEMOGLOBIN 28.2 PG (27.0-34.0); MEAN CORPUSCULAR HGB CONC 32.7 % (32.0-36.0); MONO % 11.9 % (0.0-8.0); NEUT % 69.9 % (16.0-70.0); PLATELET COUNT 315 TH/MM3 (150-450); RED BLOOD COUNT 2.96 MIL/MM3 (4.50-5.90); RED CELL DISTRIBUTION WIDTH 17.2 % (11.6-17.2); WHITE BLOOD COUNT 20.4 TH/MM3 (4.0-11.0)
[2017-04-29 04:36] LABS: HEMO FLAGS AUTO DIFF
[2017-04-29 04:58] LABS: BICARBONATE 25.4 MEQ/L (21.0-32.0); POTASSIUM 5.3 MEQ/L (3.5-5.1)
[2017-04-29] MEDS: SODIUM CHLOR 0.9% 1000 ML INJ 1,000 ML IV SCH (05:16)
[2017-04-29] MEDS: INSULIN ASPART SUPPLEMENTAL SCALE SQ SCH ×4 (05:16→22:57)
[2017-04-29 07:07] LABS: BANDS 7 % (0-6); EOSINOPHILS 11 % (0-4); METAMYELOCYTES 7 % (0-1); MYELOCYTES 3 % (0-0); NEUTROPHIL # MANUAL DIFF 15.7 TH/MM3 (1.8-7.7); POLYS (SEG NEUTROPHILS) 60 % (16-70); WBC DIFF SAMPLE 100
[2017-04-29 07:09] LABS: PLATELET ESTIMATE SMEAR NORMAL (NORMAL); PLATELET MORPHOLOGY NORMAL (NORMAL); SCAN/DIFF FINAL DIFF MANUAL
[2017-04-29] MEDS: RESP: TOBRAMYCIN SULFATE 80 MG/2 ML NEB NEB SCH ×2 (08:04→20:55)
--- NOTE | 2017-04-29 09:04 | HHI.CCPN ---
Subjective Remarks/Hospital Course Date of admission: 01/22 Date of critical care medicine consult 02/10 due to acute hypoxemic respiratory failure requiring emergent intubation 62-year-old male with a past medical history of hypertension, hyperlipidemia, diabetes mellitus, gout, uric acid kidney stones, kidney disease of unknown stage who originally presented to [facility] emergency department on 01/22 after a fall in which he sustained a right distal ulna fracture. He had been experiencing a gradual primarily lower extremity weakness as well as upper extremity weakness that was progressive. Neurology consult was obtained. MRI revealed no acute stroke. He had multifocal white matter changes. Tiny lacunar infarcts of the brainstem. Lumbar MRI report states L4-L5 disc protrusion with cetnral canal stenosis. Dr. Blackwell evaluated and states no cord compression on MRI C/T spine and recommended nonoperative management. Symptoms were felt to be consistent with transverse myelitis and he underwent Solumedrol 250 mg IV q6 hours 01/27-02/02. He also was found to have occlusive thrombus in the bilateral posterior tibial veins. Heparin was being avoided because he had traumatic lumbar puncture on 01/26 and 02/01. IVC filter was placed 01/25. He was undergoing physical therapy, reportedly making some improvements with plan to eventually discharged home with his son (max assist standing, and bed to chair per PT note). Apparently he had some vomiting the evening of 02/09 and additional vomiting on 02/10. He had a fever 102.8 on 02/09. Last recorded bowel movement was 02/03. Tonight he had acute onset of severe hypoxemia and respiratory distress. [facility] called and he was brought emergently to [facility] where his sats were 64% on 100% nonrebreather with mean arterial pressure 44. He was emergently intubated, CVL and art line placed. He is in septic shock. SUBJ: 02/11: Patient remains intubated sedated, critically ill. FiO2 reduced to 80% after increasing PEEP to 12. In severe septic shock Levophed at 16 mcg/m, vasopressin at 0.04 international units. D/W vascular surgery Dr. Enciso. He performed bedside Left upper extremity incision and debridement and excision of septic cephalic vein. 02/12: Remains intubated sedated profoundly septic, in shock on vasopressin and 7 mcg/min Levophed. FiO2 has improved to 45%, WBC count remains elevated with 20 ,000 white count significant left shift. Slight improvement in creatinine 2.9 urine output 750 ml 24 hours. 2-D echo shows LV ejection fraction 20-25%, no vegetation reported. Blood cultures 4 staph aureus. Wound culture pending 02/13: Remains critically ill but stable to improving. WBC count is down to 16, creatinine improving to 2.36. Off all pressors. Urine output also improving. 1.5L in 24 hours 02/14: Extubated 02/13. Tolerating well. WBC now down to 12.8. Creat improving 2.3 to 2. UO 3.4L. remains off all pressors. Was started on Precedex yesterday night for agitation, currently on 0.5 g per KG per hour. Chest x-ray shows left more than right air space disease 02/20/17 Re consult: 62-year-old male who was originally admitted for lower extremity weakness and found to have what was thought to be possible transverse myelitis. His hospital course his included a healthcare associated pneumonia, septic thrombophlebitis, DVT. He was most recently in the hospital floor where he had significant nausea and vomiting and diarrhea. His C. difficile test was recently negative. However, he has experienced worsening acute on chronic renal failure, hypotension, tachycardia, and severe hypoxemia. He did have a bout of vomiting earlier today, and his hospitalist attending suspects that he may have aspirated. He arrives by rapid response to the ICU with a nonrebreather in place in severe respiratory distress with SPO2 of 85%. I emergently intubate the patient, see separate procedure note for details. At this point the patient was hypotensive and tachycardic. He does have a history of an EF of 20%, however clinically he appears in florid septic shock. I placed central line and arterial line started vasopressors and gentle IV fluid resuscitation with 1 L of LR. Patient today was empirically broadened to vancomycin and Zosyn from his oxacillin which was initially treating MSSA bacteremia. He is recultured. Critical-care medicine is consulted to evaluate and manage his worsening multiorgan system failure and decompensated septic shock 02/21: Patient remains intubated sedated. Becomes anxious tachypnea on sedation lightening. Chest x-ray shows mild left lower lobe infiltrate. WBC count is slightly improved today from 23.2 t0 21. C Diff negative. UO adequate, creat slightly worsening. 1.57 today 02/22: Remains intubated sedated tolerated CPAP yesterday, plan is for EGD/ Colonscopy. WBC count back to normal. UO adequate. Creat stable 02/23: Tolerating CPAP trials following commands. Will do a spontaneous breathing trials. Status post EGD colonoscopy yesterday -Gastritis, esophagitis. Diverticulosis and multiple polyps. Urine output adequate but creatinine increasing to 1.7 with patient requiring multiple straight catheterization. We'll reinsert Sloan. 02/24: Breathing comfortably 24 hours after extubation. Protects airway well. 02/25: Excoriate bottom, will place rectal FMS. Start pureed diet. 02/26: Afebrile. Complaining of nausea and vomiting this afternoon. Increased stool output. Continue potassium replacement today. 02/27: 10 PM overnight, acutely hypotensive. Received 3 units PRBCs. Antibiotic coverage broadened to piperacillin/tazobactam, cortisol and 1 dose of vancomycin. Oxacillin drip currently on hold. Symptomatically, patient continues to vague abdominal pain/nausea vomiting which is unchanged for the past several days. Lipase elevated yesterday. Lactic acid normal. Troponin normal. Urinary retention after removal of Sloan. Straight catheter 1300. Cc 02/28: New diagnosis large retroperitoneal hematoma. Received 10 PRBC, 14 FFP, 2 platelets, 1 cryo-, 6 g calcium chloride, 2 is magnesium sulfate and 4 mg Bumex. CTA abdomen revealed possible arterial bleeds iliac, lumbar. Patient is currently on norepinephrine and epinephrine drips and possible need right nephrostomy tube placement due to large hematoma compressing ureter. Intra-abdominal bladder pressures are currently 13 03/01: Afebrile. Received 25 g albumin and 1 unit PRBCs overnight. Intra- abdominal bladder pressures currently 19. Currently on 3 micrograms per minute of norepinephrine. Okxia-nw-oxru 1 out of 4 on 4 mics grams per kilogram per minute of cisatracurium. 03/02: Slightly hypothermic overnight. Hemoglobin appears to have stabilized. Troponin bump overnight likely secondary to demand ischemia from hypotension. Hemodynamically stable off all vasopressors. 03/03: Received 1 PRBCs overnight. 3 units currently. Off all vasopressors. Likely rebleeding. Stool is dark. 03/04: Remains unstable. Ventilator dependent. 03/05: afebrile. hgb stable. 03/06: bumex drip started overnight. good uop after bumex initiated. still grossly volume overloaded. Cr downtrending. more awake with transition to propofol. still too volume overloaded to tolerate extubation. hgb stable. 03/07: Afebrile. Tolerating tube feeds at goal with Nepro. Positive BM. On low-dose fentanyl and propofol drips. Potassium currently being replaced. 03/08: Eyes will open on ventilator. Afebrile. Tolerating tube feeding. Failed PSV trial yesterday due to apnea. 03/09: Following commands. Tmax 101. Tolerating tube feeding. One hour PSV trial yesterday. Currently tolerating well so far today 1.5 hours 03/10: Low-grade temperatures. Tolerating PSV trial 10 hours yesterday. Currently at 5/5 at 35%. We'll probably attempt extubation a.m. after hemodialysis. 03/11: Extubated currently in 4 L nasal cannula. Thick secretions thick clear with cough. Currently afebrile. Tolerating diet previously. 03/12: Sleepy this morning but arouses. Following commands. Refusing diet at the present time. On 2 L nasal cannula. 03/13: Patient reintubated last night for worsening respiratory status. Currently sedated on mechanical ventilation. Became hypotensive following intubation and is on Levophed 20 mics per minute. 03/14: Sedated, orally intubated on mech vent at the time of my evaluation this AM, subsequently underwent perc trach placement. Remains on levophed for pressor support. Transfused 1 unit PRBCs today. Persisten 03/15: Trach site clean, dry. CXR with bilateral basilar infiltrates. 03/16: Pulmonary congestion persists. Clinical condition not improving. Prognosis becoming increasingly bleak. 03/17: Glucose intolerance worse. No improvement in neurological function. 03/18: Remains on mechanical ventilation via tracheostomy. Off pressors now. Neurologic status remains poor. 03/19: Drowsy, encephalopathic, arousable. On mechanical ventilation via tracheostomy. Levemir increased for hyperglycemia today. Remains off pressors 03/20: More awake, moves both upper extremities. On mechanical ventilation via tracheostomy. Daily C Pap trials ongoing. 03/21: Awake and alert. On mechanical ventilation via tracheostomy. Opens and closes eyes on command. 03/22: Awake and alert. Tolerated T PIECE for 7 hours yesterday. Dialyzed today. 03/23: Currently on T piece trial. Status post dialysis yesterday on 3 L. Awake and alert. Wants to eat. Subjective 03/24: Currently afebrile. Hemodialysis catheter discontinued yesterday from left IJ. Persistent leukocytosis noted. Potassium will be replaced. Furosemide 40 mg twice a day IV to 20 mg IV twice a day 03/25: WBC count unchanged. Patient on T piece with humidified air greater than 48 hours, tolerating it well. Reconsulted 04/12: The patient was transferred emergently from the floor/ [facility]. Patient was initially seen by lining cementer Dr. Estrada, and the patient was noted to be tachypneic on T piece of 40%. ABGs were performed which showed a PaO2 of 60 on T piece of FiO2 of 40%. Chest x-ray was performed which showed loss of entire left hemidiaphragm animal assistant consolidation in the left lower lobe. Concern for mucus plugging versus fluid. The patient was transferred emergently [place] [facility] [place] a ventilator CT of the chest is pending. Upon arrival in the room the patient is alert and oriented, mouthing words, nodding head to yes and no questions O2 sat is 100% but patient is currently on mechanical ventilation. Currently in no respiratory distress. 04/13: Tmax 99.8. The patient's oxygen requirements have decreased currently FiO2 35% with a PaO2 1 blood gas of 85, O2 saturation 100%. No respiratory distress noted. Patient underwent CT of the chest yesterday noted pleural effusions left greater than right, diagnostic/and therapeutic CT thoracentesis plan for this a.m.. 04/14: Patient underwent CT-guided thoracentesis of the right side with approximately 600 cc withdrawn. Today lining cementer Dr. LABOY in and up size indwelling 6.0 Shiley to a 8.0 Shiley. Minimal bleeding noted around the site. X-ray improving. Patient started on CPAP trials today, as well as tube feeds were initiated. 04/15: Placed on T piece this morning via tracheostomy. Appears to be tolerating it. Laying in bed not in any acute distress. 04/16: Awake and alert. Tolerating T piece. Tolerating PEG feeds. 04/17: Awake and alert. Tolerating T piece. Tolerating tube feeds via PEG 04/18: Awake and alert. Tolerating TPs. Tolerating tube feeds. Passed swallow eval 04/19: Awake and alert. Remains on T piece. Wants to move out of ICU as he indicates to me once again as he has for the past few days. Awaiting CIC bed 04/20: Awake and alert. Remains on T piece. Developed hypotension last night for which she was transiently on Levophed however has been off since early this morning. ID adjusting antibiotics and working up for new sepsis. 04/21: Awake and alert. On T piece. Awaiting CIC bed for the last few days. 04/22: Awake and alert. Remains on T piece. Received 500 cc normal saline this morning for tachycardia. 04/23 No events overnight. Remains on TP's with 35% FIO2. Afebrile. 04/24: Resting comfortably. Got short of breath with Passy-Rafy valve which was taken off. 04/25: Remains on T piece. Awaiting transfer out of ICU. 04/26: Remains on T piece. Still awaiting transfer out of ICU since 04/17. 04/27 Patient became hypotensive, bradycardic and hypoxic, ABG on TP's last night showed acute hypercapnic resp acidosis (PH 7.10, CO2: 80) he was subsequently placed on mechanical ventilator. Patient was given Albumin, 2u PRBC and started on Levophed 3mics. Renal function worse today with Cr: 1.53 from 1.13 04/28 No events overnight off Levophed since yesterday. On no sedation. Afebrile. 04/29 Patient is on ventilator via trach. T;100.4 Objective Vital Signs Date Time Temp Pulse Resp B/P (MAP) Pulse Ox O2 Delivery O2 Flow Rate FiO2 04/29/17 08:00 99 40 04/29/17 06:00 115 04/29/17 04:00 98.9 20 93/58 (70) 04/28/17 19:00 Mechanical Ventilator 04/26/17 20:22 6.00 Intake and Output 04/29/17 04/29/17 04/30/17 08:00 16:00 00:00 Intake Total 1888 ml Output Total 1350 ml Balance 538 ml Result Diagram: 04/29/17 0404 04/29/17 0404 Other Results Laboratory Tests Test 04/28/17 09:47 04/28/17 12:30 04/28/17 13:25 04/29/17 04:04 Potassium Level 5.5 MEQ/L 5.5 MEQ/L 5.3 MEQ/L Blood Gas Puncture Site RT RADIAL Blood Gas Patient Temperature 98.6 Blood Gas HCO3 24 mmol/L Blood Gas Base Excess -1.2 mmol/L Blood Gas Oxygen Saturation 95 % Arterial Blood pH 7.35 Arterial Blood Partial Pressure CO2 45 mmHg Arterial Blood Partial Pressure O2 102 mmHg Arterial Blood Oxygen Content 11.5 Vol % Arterial Blood Carboxyhemoglobin 1.4 % Arterial Blood Methemoglobin 1.2 % Blood Gas Hemoglobin 8.4 G/DL Oxygen Delivery Device VENTILATOR Blood Gas Ventilator Setting Blood Gas Inspired Oxygen 40 % White Blood Count 20.4 TH/MM3 Red Blood Count 2.96 MIL/MM3 Hemoglobin 8.4 GM/DL Hematocrit 25.5 % Mean Corpuscular Volume 86.2 FL Mean Corpuscular Hemoglobin 28.2 PG Mean Corpuscular Hemoglobin Concent 32.7 % Red Cell Distribution Width 17.2 % Platelet Count 315 TH/MM3 Mean Platelet Volume 7.8 FL Neutrophils (%) (Auto) 69.9 % Lymphocytes (%) (Auto) 7.6 % Monocytes (%) (Auto) 11.9 % Eosinophils (%) (Auto) 10.2 % Basophils (%) (Auto) 0.4 % Neutrophils # (Auto) 14.3 TH/MM3 Lymphocytes # (Auto) 1.6 TH/MM3 Monocytes # (Auto) 2.4 TH/MM3 Eosinophils # (Auto) 2.1 TH/MM3 Basophils # (Auto) 0.1 TH/MM3 CBC Comment AUTO DIFF Differential Total Cells Counted 100 Neutrophils % (Manual) 60 % Band Neutrophils % 7 % Lymphocytes % 4 % Monocytes % 8 % Eosinophils % 11 % Neutrophils # (Manual) 15.7 TH/MM3 Metamyelocytes 7 % Myelocytes 3 % Differential Comment FINAL DIFF MANUAL Platelet Estimate NORMAL Platelet Morphology Comment NORMAL Blood Urea Nitrogen 56 MG/DL Creatinine 1.85 MG/DL Random Glucose 141 MG/DL Calcium Level 9.5 MG/DL Sodium Level 144 MEQ/L Chloride Level 112 MEQ/L Carbon Dioxide Level 25.4 MEQ/L Anion Gap 7 MEQ/L Estimat Glomerular Filtration Rate 37 ML/MIN Imaging Last Impressions Chest X-Ray 04/27/17 0600 Signed Impressions: Service Date/Time: Thursday, April 27, 2017 05:19 - CONCLUSION: Improved aeration. Cornel Harrison MD Thoracentesis 04/13/17 1054 Signed Impressions: Service Date/Time: Thursday, April 13, 2017 15:26 - CONCLUSION: Uncomplicated CT-guided right thoracentesis. Candido Mendoza Jr., MD Chest CT 04/12/17 1558 Signed Impressions: Service Date/Time: March 17:51 - CONCLUSION: 1. Slight increase in size of bilateral effusions and basilar atelectasis, left greater than right compared with February 27. Tracheostomy in good position. Trace Holloway MD Renal Ultrasound 04/02/17 0000 Signed Impressions: Service Date/Time: Sunday, April 02, 2017 16:59 - CONCLUSION: Limited exam with the left kidney being unable to be evaluated in the bladder not distended. There do appear to be multiple shadowing stones at the right kidney without hydronephrosis. Angelo Manzo MD Wrist X-Ray 03/27/17 0000 Signed Impressions: Service Date/Time: Monday, March 27, 2017 13:21 - CONCLUSION: 1. No acute fracture is identified. A portion of the previously documented distal ulna fracture remains visualized. 2. 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 Angelo Allen MD Aortography 02/28/17 0000 Signed Impressions: Service Date/Time: Tuesday, February 28, 2017 08:01 - CONCLUSION: 1. Active hemorrhage from distal right lateral sacral and iliolumbar branches successfully coil and Gelfoam embolized, as above. Juan Bhakta MD Abdomen/Pelvis CT 02/28/17 0000 Signed Impressions: Service Date/Time: Tuesday, February 28, 2017 06:51 - CONCLUSION: 1. The right retroperitoneal hematoma has increased in size, as above. There are 2 serpiginous arterially enhancing structures visualized, one in the right psoas muscle and another extending into the hematoma at the right iliac fossa. These could represent sites of continued active bleeding. 2. Stable moderate size left and small right pleural effusion with associated compressive atelectasis. 3. Stable small volume of free fluid in the abdomen and pelvis. There is also anasarca. The findings concerning the retroperitoneal hematoma were discussed with Dr. Aguiar via telephone at approximately 7: 10 AM on 02/28/2017. Angelo Allen MD Abdomen X-Ray 02/26/17 Signed Impressions: Service Date/Time: Sunday, February 26, 2017 14:52 - CONCLUSION: 1. Nonobstructive bowel gas pattern. Juan Bhakta MD Upper Extremity Ultrasound 02/10/17 Signed Impressions: Service Date/Time: Friday, February 10, 2017 18:46 - CONCLUSION: Occlusive thrombus in the cephalic and basilic veins. Benjamin Person MD Lung Scan-V Nuclear Medicine 02/10/17 Signed Impressions: Service Date/Time: Friday, February 10, 2017 22:17 - CONCLUSION: Low probability pulmonary embolism. Candido Patton MD Head CT 02/10/17 0000 Signed Impressions: Service Date/Time: Friday, February 10, 2017 23:51 - CONCLUSION: Negative noncontrast CT brain. Candido Patton MD Lumbar Puncture Fluoroscopy 02/01/17 0000 Signed Impressions: Service Date/Time: January 09:35 - CONCLUSION: Uncomplicated fluoroscopically guided lumbar puncture. CSF was clear. Nabeel Peralta MD Head Magnetic Resonance Angiography 01/27/17 0000 Signed Impressions: Service Date/Time: Friday, January 27, 2017 10:33 - CONCLUSION: No intracranial vascular abnormality is identified. There is no aneurysm visualized. Angelo Allen MD IVC Filter Placement X-Ray 01/25/17 0000 Signed Impressions: Service Date/Time: January 10:29 - CONCLUSION: Uncomplicated inferior vena cava filter placement as above. Yung Fowler MD Thoracic Spine MRI 01/24/17 0000 Signed Impressions: Service Date/Time: Tuesday, January 24, 2017 22:29 - CONCLUSION: 1. Mild degenerative spondylosis most prominently at T11-L1 with slight effacement of the anterior thecal sac and left lateral recess. No significant neural foraminal stenosis. 2. No acute fracture. Juan Bhakta MD Lumbar Spine MRI 01/23/17 0000 Signed Impressions: Service Date/Time: Monday, January 23, 2017 17:01 - CONCLUSION: 1. At L4-5 is a broad-based disc protrusion with severe central canal and lateral recess stenosis and flattening of the exiting right L4 nerve root. 2. L5-S1 there is a disc protrusion and moderate stenosis with flattening of the exiting L5 nerve roots bilaterally. 3. At L3-4 there is a moderate to severe central stenosis and lateral recess stenosis with mild foraminal stenosis. 4. No acute fracture or spondylolisthesis. Trace Holloway MD Lower Extremity Ultrasound 01/23/17 Signed Impressions: Service Date/Time: Monday, January 23, 2017 09:53 - CONCLUSION: Bilateral focal lower extremity DVT involving the posterior tibial veins. Angelo Garrido MD Cervical Spine MRI 01/23/17 Signed Impressions: Service Date/Time: Monday, January 23, 2017 17:01 - CONCLUSION: 1. Multilevel cervical spine degenerative changes as above. 2. Mild degrees of spinal stenosis at C3/C4-C6/C7. No cord compression or cord signal abnormality. 3. Age indeterminate left paracentral/foraminal disc protrusion at C6/C7. 4. Multilevel foraminal stenosis, most severe on the left at C6/C7. Please see individual levels above. 5. No fracture or subluxation of the cervical spine. Angelo Garrido MD Brain MRI 01/23/17 Signed Impressions: Service Date/Time: Monday, January 23, 2017 17:01 - CONCLUSION: 1. No acute stroke or other acute intracranial abnormality demonstrated. 2. Moderate severity chronic white matter changes, nonspecific but most likely related to chronic small vessel disease. 3. Few scattered tiny lacunar infarcts of the brainstem. 4. Given the findings are not entirely specific, clinical evaluation for possible multiple sclerosis recommended. Angelo Garrido MD Knee X-Ray [id number] Signed Impressions: Service Date/Time: Sunday, January 22, 2017 21:17 - CONCLUSION: 1. Evidence of moderate to large joint effusion. 2. No acute fracture or malalignment. 3. Mild 3 compartment osteoarthritic change. Benjamin Person MD Hip and Pelvis X-Ray [id number] Signed Impressions: Service Date/Time: Sunday, January 22, 2017 21:10 - CONCLUSION: 1. Mild to moderate degenerative change of both hips with no acute fracture or malalignment. There is flattening and remodeling of the right humeral head. Benjamin Person MD Objective Remarks GENERAL: 62-year-old male, resting in bed, on mechanical ventilation via trach HEENT: Normocephalic. Atraumatic. Pupils equal, round, reactive. NECK: Tracheostomy in place, around trach site erythematous, yellowish drainage CHEST: b/l equal air entry decreased bilaterally . Scattered rhonchi, no wheezing CARDIOVASCULAR: S1-S2 regular, no gallop or murmur ABDOMEN distended. No rigidity. Umbilical hernia is reducible. No guarding. PEG tube in place : Positive scrotal edema Sloan in situ MUSCULOSKELETAL: Pulses 2+. 1+ bilateral upper and lower extremity edema. NEUROLOGICAL: Awake and alert, has spontaneous eye opening. Opens and closes eyes on command. Moves 4 limbs weakly to stimulation. Procedures 01/25/2017- Retrievable IVC Filter placement 01/26/17-lumbar puncture with fluoroscopy-by interventional radiology 02/01/17- lumbar puncture fluoroscopy by interventional radiology 02/10/17- Endotracheal Intubation 02/10/17-left IJ central venous line placed 02/10/17-left femoral arterial line placed 02/11/17-Diagnostic and therapeutic bronchoscopy with bronchoalveolar lavage 02/11/17-Left upper extremity incision and debridement with excision of septic cephalic vein 02/13/17- Extubated 02/20/17- endotracheal intubation 02/20/17- Left subclavian central line placement 02/20/17-Right radial A-line placement 02/22/17-EGD/colonoscopy 02/28/17-right radial a line 02/28/17- Endotracheal intubation 02/28/17- right sided introducer catheter placement 02/28/17- Right IJ central line placement 02/28/17-Right chest tube placement 02/28/17- Embolization of inferior and superior sacral branches of right internal iliac artery 03/01/17- Hemodialysis access catheter 03/03/17-Right IJ central line placement 03/11/17-Extubated 03/13/17- Endotracheal intubation 03/14/17-Tracheostomy placement, trach downsized to 6.0 Anni 03/30/17 03/15/17-PEG tube placement 04/11/17-CT Chest 11/24/17-thoracentesis right 600 cc removed Date of Insertion: Feb 20, 2017 Date of Insertion: Mar 03, 2017 Line: Central Venous Catheter Side: Right Location: Internal, Jugular A/P Problem List: (1) Septic shock ICD Code: A41.9 - Sepsis, unspecified organism; R65.21 - Severe sepsis with septic shock Status: Acute (2) Acute respiratory failure ICD Code: J96.00 - Acute respiratory failure, unspecified whether with hypoxia or hypercapnia Status: Acute (3) Thrombophlebitis arm ICD Code: I80.8 - Phlebitis and thrombophlebitis of other sites (4) Aspiration pneumonia ICD Code: J69.0 - Pneumonitis due to inhalation of food and vomit Status: Acute (5) Atelectasis of left lung ICD Code: J98.11 - Atelectasis Status: Acute (6) Quadriparesis ICD Code: G82.50 - Quadriplegia, unspecified Status: Acute (7) DVT (deep venous thrombosis) ICD Code: I82.409 - Acute embolism and thrombosis of unspecified deep veins of unspecified lower extremity (8) Altered mental status ICD Code: R41.82 - Altered mental status, unspecified Status: Acute (9) CKD (chronic kidney disease) stage 3, GFR 30-59 ml/min ICD Code: N18.3 - Chronic kidney disease, stage 3 (moderate) Status: Chronic (10) Acute renal failure ICD Code: N17.9 - Acute kidney failure, unspecified Status: Acute (11) Diabetes mellitus ICD Code: E11.9 - Type 2 diabetes mellitus without complications Status: Chronic (12) Distal end of ulna fracture, closed ICD Code: S52.609A - Unspecified fracture of lower end of unspecified ulna, initial encounter for closed fracture Status: Acute (13) Gout ICD Code: M10.9 - Gout, unspecified Status: Chronic Assessment and Plan Assessment: NEURO/PSYCH: Acute metabolic encephalopathy- persistent Quadriparesis secondary to suspected transverse myelitis Recurrent falls On no sedation. Monitor neuro status. Suspected transverse myelitis. Received methylprednisolone 250 mg IV every 6 hours 01/27-02/02, started back on hydrocortisone 02/21/17, initially tapering to 50 mg IV every 8 hours starting received 1 dose at 2100 prior to becoming hypotensive. weaning hydrocortisone taper and stopped 03/09. Resumed hydrocortisone 50mg IV Q6hrly on 03/14 as patient became hypotensive following intubation on 03/13 requiring levophed. Continue Cortef 10mg Q12 LP 01/26 and 02/01. CSF culture negative 01/26, 02/01 Oligoclonal bands negative. CSF/serum IgG index is not elevated. VDRL nonreactive. Cryptococcal antigen negative. Brain MRI 01/23 no acute stroke. Few scattered lacunar infarcts of the brainstem. Moderate chronic white matter changes. MRI cervical/thoracic spine- mild spinal stenosis C3/C4 to C6/C7. No cord compression. RPR negative Neurology has been following, Dr. Crenshaw. Repeat CT brain 02/10 - negative Continue PT/OT Continue oxycodone 10 mg every 4 hours scheduled RESP: Acute hypoxemic respiratory failure Healthcare associated pneumonia/Aspiration Pneumonia S/P Right-sided chest tube 02/28 Continue with vent support keep sat >92% Bronchodilators, pulm toilet, trach care s/p perc tracheostomy 03/14. Pulmonology following Dr. Estrada - 04/13 CT guided thoracentesis scheduled emergently as discussed with Dr. Estrada - 600cc removed (right) 04/14-tracheostomy up sized to 8.[address] [place] [address] cement[address] Estrada at bedside CV: Systolic heart failure likely chronic with ejection fraction 20-25% Hyperlipidemia History of hypertension Mild TR Sinus tachycardia Elevated troponin likely type II demand ischemia Monitor HR and BP keep MAP>65mmHg Atorvastatin 10 mg by mouth daily for dyslipidemia. 2-D echocardiogram 01/11 revealed EF 20-25%. Mild TR. Pulmonary arterial pressures were normal around 20 GI: Large right retroperitoneal hematoma Erosive esophagitis Adematous/hyperplastic colon polyps Severe acute protein calorie malnutrition Nausea/vomiting - resolved. Diarrhea Gastritis Diverticulosis Internal and external hemorrhoids Hiatal hernia Elevated lipase Continue tube feeds- on Glucerna 1.5 @65ml/hr 02/27 CT chest/abdomen and pelvis - 9.4 x 7.5 renal and 16 x 12 cm right psoas muscle hematoma. Fluid around liver and spleen. Right-sided nephrolithiasis CTA abdomen 02/28 - possible blushing around iliac/lumbar vessels Discussed with IR. s/p attempted embolization CT abdomen and pelvis 02/10 atrophic left kidney. Bilateral inguinal hernias fat- containing. Nonobstructing 12 mm right kidney stone repeat CT abd/pelvis did not show evidence of obstruction. patient clinically has been having diarrhea (c. diff negative 02/19). also with nausea/vomiting of unclear etiology. EGD/Colonoscopy-02/22/17 showed gastritis esophagitis, hiatal hernia, diverticulosis and multiple polyps in descending colon and sigmoid which were snared biopsied. Biopsy pending Status post PEG tube placement Lansoprazole 30 mg twice a day for GI prophylaxis FEN/RENAL: Acute kidney injury in the setting of Chronic kidney disease stage 3-4 History of uric acid kidney stones with prior stent BPH Nonfunctioning left kidney Monitor renal function, electrolytes replacement as needed Cr: 1.85 today from 1.60, UOP: 950ml in 24 hrs. Give Lasix 40mg x1 On Free water 250ml Q8, monitor sodium level. RIOS/SPEP negative. 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 Recommended nephrostomy tube if obstruction Nephrology consulted, off hemodialysis. Making urine. ICU electrolyte replacement protocol Last IHD was 03/22 ID: Septic shock- resolved. Abscess and Suppurative thrombophlebitis left upper extremity MSSA bacteremia Klebsiella UTI ESBL positive Acute aspiration pneumonia/HCAP 04/27 Sputum cx: GNR, Urine cx: Yeast, BC: NGTD Previously treated with Bactrim, ertapenem, intermittent vancomycin, nafcillin Blood cultures 2, UA ESBL positive Klebsiella UTI Sputum 03/14 - Pseudomonas came back resistant to imipenem, Stenotrophomonas maltophilia Antibiotics per ID. on Tobra nebs, PO Vanco and Diflucan, Zerbaxa, Discussed with ID- Dr. Katarina Puente Reconsult wound service. Check C-diff PCR r/o C-diff HEME: Acute blood loss anemia DVT, bilateral posterior tibial vein, IVC filter Septic thrombophlebitis with occlusive thrombus mid cephalic and basilic vein side Monitor CBC s/p transfusion 2units PRBC overnight ( 04/26) Received 10 PRBC, 14 FFP, 2 platelets, 1 cryo-02/28 Received 3 units PRBCs Ultrasound 01/23/17 - Bilateral lower extremity with occlusive posterior tibial vein DVTs. Heparin was initially started for DVT but was placed on hold due to LP with suspected traumatic tap. Currently holding full anticoagulation with enoxaparin 100 mg IV twice a day due to anemia as of 02/26 IVC filter was placed 9/7/17. Ultrasound LUE 02/10 occlusive thrombus mid cephalic vein, basilic vein.s. Transfuse 3 units PRBCs 02/27 Transfuse 2 units PRBCs 03/01. Transfused 1 unit PRBCs on 03/14 ENDO: Diabetes mellitus Hypoglycemia History of prior adrenal insufficiency with shock Gout Accu-Cheks to maintain euglycemia Novulin R every 4 hours. Low Regimen MSK: Right distal ulna fracture. Recommended nonoperative management. PROPH: Lansoprazole 30 mg twice a day twice a day for stress ulcer prophylaxis. Has IVC filter. Therapeutic enoxaparin was placed on hold for retroperitoneal hematoma ACCESS: Right subclavian CVP placed 04/27 Dispo: Discussed with STEM SETTER at bedside Level 3 Problem Qualifiers (1) Aspiration pneumonia: (2) DVT (deep venous thrombosis): Qualified Codes: I82.443 - Acute embolism and thrombosis of tibial vein, bilateral (3) Acute renal failure: Qualified Codes: N17.9 - Acute kidney failure, unspecified (4) Diabetes mellitus: (5) Gout: Hood Madera MD Apr 29, 2017 09:04
[2017-04-29] MEDS ORDERED: FUROSEMIDE 40 MG/4 ML VIAL IV PUSH ONE (09:15)
[2017-04-29] MEDS: CHOLESTYRAMINE 4 GM PACKET G-TUBE SCH ×2 (09:43→20:15)
[2017-04-29] MEDS: TAMSULOSIN HCL 0.4 MG CAP PO SCH ×2 (09:44→20:14)
[2017-04-29] MEDS: LACTOBACILLUS ACIDOPHILUS TAB PO SCH ×3 (09:44→18:06)
[2017-04-29] MEDS: LANSOPRAZOLE SOLUTAB 30 MG TAB NG SCH ×2 (09:44→20:15)
[2017-04-29] MEDS: QUEtiapine FUMARATE 25 MG TAB PO SCH (09:44)
[2017-04-29] MEDS: COLLAGENASE OINT 30 GM TUBE TOPICAL SCH (09:45)
[2017-04-29] MEDS: SODIUM CHLORIDE 0.9% FLUSH 10 ML FLUSH IV FLUSH SCH ×3 (09:45→20:15)
[2017-04-29] MEDS: CHLORHEXIDINE 0.12% (ORAL KIT) 15 ML CUP MT SCH ×2 (09:45→20:15)
[2017-04-29] MEDS ORDERED: PIPERACIL-TAZO 4.5 GM PREMIX 100 ML IV SCH (10:00)
--- NOTE | 2017-04-29 12:02 | HHI.IDPN ---
Subjective Subjective Remarks Patient is a 62-year-old male, admitted to the hospital for evaluation of pain in his right wrist. He gave a history of falling about a week ago and apparently had immediate pain in the right wrist. He did not seek any medical attention initially because reportedly he was very busy. He eventually presented, and he was found to have a distal ulnar fracture on plain films. He also had some redness and swelling. Orthopedics saw the patient, and was being treated conservatively with the splint. During this hospitalization also he started complaining of generalized weakness but more so in his lower extremity than his upper extremity. He had swelling in both lower extremity which revealed evidence of DVT in the posterior tibial veins. Neurology had seen the patient and he underwent lumbar puncture which apparently was traumatic. Patient was therefore not given anticoagulation because of the traumatic LP, and he underwent placement of an IVC filter on January 25. Patient had another lumbar puncture on February 01. He was felt to have transverse myelitis, and he was given high-dose IV Solu-Medrol from January 27 to February 02. There was apparently some improvement in his weakness. The imaging studies done for his weakness showed some spinal stenosis, and neurosurgery was consult that and recommended that there was no surgical intervention to be done. Patient has been stabilizing, but last night apparently deteriorated, and he ended up getting intubated, and had significant hypotension requiring pressors. There was also an ultrasound done of his left upper extremity which showed DVT, and there was evidence of superior 2 thrombophlebitis. Vascular surgery was consult to it and he had IND on his left upper extremity. Patient has had some fevers since yesterday. 2 blood cultures were done yesterday and they're now reported as growing gram-positive cocci in [place] in clusters. He is currently sedated and intubated. He is on Levophed and vasopressin. A central line was placed as well as a femoral a line. He apparently had an IV in his left upper extremity and that was removed yesterday. Patient also has history of chronic kidney disease, and nephrology evaluated the patient. He was just being monitored for his renal insufficiency. Reconsulted 04/12 for low grade fever, leucocytosis, worsening CXR concern for new pneumonia. Asked to see pt by Dr.Iskandar MIGUELITO ENCARNACION for low grade fever, increase in WBC. case d.w Dr.Cassy: clinically stable hemodynamically stable. d/w RN: thick, moderate, baker secretions needing frequent suctioning. Notes reviewed Temps normal On vent. Opens eyes spontaneously but appears lethargic and not following commands. WBC elevated at 20.4 CXR reviewed with left base effusion and left side haziness. Antibiotics Current Medications Diflucan Oral Vanco Tobra nebs Medications (Trade) Dose Ordered Sig/Rosalia Route Start Time Stop Time Status Last Admin (NS Flush) 2 ml UNSCH PRN IV FLUSH 01/23/17 00:30 04/27/17 09:22 (NS Flush) 2 ml BID IV FLUSH 01/23/17 09:00 04/27/17 09:22 (Zofran Inj) 4 mg Q6H PRN IVP 01/23/17 00:30 02/26/17 17:23 (Narcan Inj) 0.4 mg UNSCH PRN IV 01/23/17 00:30 (Edna-Colace) 1 tab BID PO 01/23/17 09:00 Future Hold 02/24/17 20:31 (Dulcolax Supp) 10 mg DAILY PRN RECTAL 01/23/17 00:30 (Lipitor) 10 mg HS PO 01/24/17 21:00 Future hold 04/26/17 22:54 (Glucagon Inj) 1 mg UNSCH PRN OTHER 02/11/17 05:45 02/18/17 18:53 (Flomax) 0.4 mg Q12HR PO 02/17/17 15:00 Future hold 04/27/17 09:23 (Lovenox Inj) 100 mg Q12H SQ 02/18/17 12:00 Future Hold 02/26/17 16:20 (Lactinex) 1 tab TID PO 02/19/17 13:00 04/27/17 09:23 (D50w (Vial) Inj) 25 ml UNSCH PRN IV PUSH 02/20/17 12:45 03/27/17 13:20 (Questran Light Pkt) 4 gm Q12HR PO 02/25/17 21:00 Future Hold 02/27/17 10:32 (Aldactone) 25 mg DAILY PO 02/27/17 09:00 Future Hold (Peridex 0.12% Liq) 15 ml BID@08,20 MT 02/28/17 08:00 04/27/17 09:21 (NS Flush) UNSCH PRN IV FLUSH 03/01/17 13:00 (Heparin Inj) UNSCH PRN IV FLUSH 03/01/17 13:00 (NS Flush) DAILY IV FLUSH 03/04/17 09:00 04/27/17 09:22 (NS Flush) UNSCH PRN IV FLUSH 03/03/17 18:45 (Prevacid Odt) 30 mg BID NG 03/07/17 21:00 04/27/17 09:22 (Tylenol 650 Mg/ 20 ml Liq) 650 mg Q6H PRN PO 03/09/17 10:15 04/19/17 21:02 (Tenormin) 25 mg Q12HR PO 03/12/17 10:00 Future Hold 04/18/17 10:09 (Epogen Inj) 10,000 units UNSCH PRN IV PUSH 03/17/17 11:30 03/22/17 10:52 (Nitroglycerin 2% Oint) 2 inch Q6H PRN TOPICAL 03/23/17 14:00 03/29/17 01:20 (Norvasc) 10 mg DAILY PO 03/28/17 09:00 Future Hold 04/19/17 08:16 (Roxicodone Intensol Liq) 5 mg Q4H PO 04/01/17 18:00 04/27/17 09:23 (NovoLOG SUPPLEMENTAL SCALE) 1 ACHS SLIDING SCALE SQ 04/02/17 12:00 04/26/17 22:53 (Levemir Inj) 10 units BID SQ 04/03/17 21:00 04/27/17 09:23 (NovoLOG INJ) 5 units TIDAC SQ 04/03/17 17:00 Future Hold 04/10/17 08:00 (Xanax) 0.125 mg Q6H PRN PO 04/03/17 22:30 04/25/17 14:27 (Pill Splitter) 1 ea UNSCH PRN OTHER 04/03/17 22:45 (Levsin Liq) 0.125 mg Q4H PRN G-TUBE 04/06/17 15:00 04/12/17 10:09 (Questran 4 Gm Pkt) 4 gm Q12HR G-TUBE 04/08/17 21:00 04/27/17 09:22 (SEROquel) 25 mg DAILY PO 04/09/17 09:00 04/27/17 09:23 (Santyl Oint) 1 applic DAILY TOPICAL 04/10/17 09:00 04/27/17 09:24 (Cortef) 10 mg Q12H PO 04/10/17 18:00 04/27/17 06:10 (Lasix Inj) 40 mg BID@09,18 IV PUSH 04/12/17 18:00 Future Hold 04/19/17 17:15 (Duoneb Neb) 1 ampule Q2HR NEB PRN NEB 04/12/17 17:00 04/24/17 09:45 (Tobramycin Neb) 80 mg Q12HR NEB NEB 04/16/17 09:15 04/30/17 23:00 04/27/17 08:04 (Diflucan) 100 mg Q24H PO 04/20/17 15:00 04/29/17 23:00 04/26/17 16:45 (VANCOMYCIN for oral use only) 125 mg Q6H PO 04/21/17 21:00 05/01/17 23:00 04/27/17 09:23 (Lopressor Inj) 2.5 mg Q6H PRN IV PUSH 04/23/17 01:15 04/23/17 09:36 Norepinephrine Bitartrate 250 ml @ 37.5 mls/hr TITRATE PRN IV 04/27/17 03:15 04/27/17 09:36 Lines Central line - 04/27 Past Medical History Reviewed Allergies: Coded Allergies: levofloxacin (Verified Allergy, Severe, 01/22/17) Objective . Vital Signs Date Time Temp Pulse Resp B/P (MAP) Pulse Ox O2 Delivery O2 Flow Rate FiO2 04/29/17 10:30 115 22 113/63 (80) 100 04/29/17 10:00 121 21 114/69 (84) 99 04/29/17 10:00 121 04/29/17 09:30 115 25 107/66 (80) 99 04/29/17 09:00 115 22 113/69 (84) 99 04/29/17 08:30 114 22 108/68 (81) 99 04/29/17 08:00 40 04/29/17 08:00 99.7 116 22 109/69 (82) 99 04/29/17 08:00 116 04/29/17 08:00 99 40 04/29/17 07:30 116 24 106/64 (78) 100 04/29/17 07:00 99 Mechanical Ventilator 40 04/29/17 07:00 113 19 109/60 (76) 100 04/29/17 06:00 115 04/29/17 04:00 116 04/29/17 04:00 98.9 116 20 93/58 (70) 99 04/29/17 04:00 40 04/29/17 03:58 99 40 04/29/17 02:00 119 04/29/17 00:06 99 40 04/29/17 00:00 116 04/29/17 00:00 99.8 117 21 102/63 (76) 99 04/29/17 00:00 40 04/28/17 22:00 117 04/28/17 20:42 99 40 04/28/17 20:00 100.2 119 23 107/62 (77) 98 04/28/17 20:00 124 04/28/17 20:00 40 04/28/17 19:00 98 Mechanical Ventilator 40 04/28/17 18:00 124 04/28/17 16:30 119 23 110/70 (83) 97 04/28/17 16:28 97 40 04/28/17 16:00 121 04/28/17 16:00 40 04/28/17 16:00 100.4 121 22 122/71 (88) 97 04/28/17 15:30 118 21 124/68 (86) 98 04/28/17 15:00 118 21 117/74 (88) 98 04/28/17 14:30 117 20 126/70 (88) 98 04/28/17 14:00 113 04/28/17 14:00 113 21 109/64 (79) 98 04/28/17 13:30 119 23 123/70 (87) 98 04/28/17 13:00 116 22 119/72 (88) 98 04/28/17 12:30 111 24 113/66 (82) 98 04/28/17 12:29 98 40 04/28/17 12:00 40 04/28/17 12:00 110 04/28/17 12:00 99.1 110 21 108/63 (78) 98 12/1004/29/17 04/30/17 15:00 23:00 07:00 Intake Total 428 ml Balance 428 ml IV Total 428 ml . Laboratory Tests Test 04/28/17 03:30 04/29/17 04:04 White Blood Count 17.0 TH/MM3 20.4 TH/MM3 Red Blood Count 2.75 MIL/MM3 2.96 MIL/MM3 Hemoglobin 8.1 GM/DL 8.4 GM/DL Hematocrit 23.9 % 25.5 % Mean Corpuscular Volume 86.8 FL 86.2 FL Mean Corpuscular Hemoglobin 29.6 PG 28.2 PG Mean Corpuscular Hemoglobin Concent 34.1 % 32.7 % Red Cell Distribution Width 17.0 % 17.2 % Platelet Count 293 TH/MM3 315 TH/MM3 Mean Platelet Volume 8.0 FL 7.8 FL Neutrophils (%) (Auto) 73.3 % 69.9 % Lymphocytes (%) (Auto) 6.9 % 7.6 % Monocytes (%) (Auto) 10.2 % 11.9 % Eosinophils (%) (Auto) 9.1 % 10.2 % Basophils (%) (Auto) 0.5 % 0.4 % Neutrophils # (Auto) 12.5 TH/MM3 14.3 TH/MM3 Lymphocytes # (Auto) 1.2 TH/MM3 1.6 TH/MM3 Monocytes # (Auto) 1.7 TH/MM3 2.4 TH/MM3 Eosinophils # (Auto) 1.6 TH/MM3 2.1 TH/MM3 Basophils # (Auto) 0.1 TH/MM3 0.1 TH/MM3 CBC Comment AUTO DIFF AUTO DIFF Differential Total Cells Counted 100 100 Neutrophils % (Manual) 74 % 60 % Band Neutrophils % 1 % 7 % Lymphocytes % 7 % 4 % Monocytes % 5 % 8 % Eosinophils % 8 % 11 % Basophils % 1 % Neutrophils # (Manual) 13.4 TH/MM3 15.7 TH/MM3 Metamyelocytes 1 % 7 % Myelocytes 3 % 3 % Nucleated Red Blood Cells 1 /100 WBC Differential Comment FINAL DIFF MANUAL FINAL DIFF MANUAL Platelet Estimate NORMAL NORMAL Platelet Morphology Comment NORMAL NORMAL Keratocytes OCC Laboratory Tests Test 04/27/17 16:00 04/27/17 20:00 04/28/17 03:30 04/28/17 09:47 Potassium Level 5.8 MEQ/L 5.6 MEQ/L 5.6 MEQ/L 5.5 MEQ/L Blood Urea Nitrogen 56 MG/DL 56 MG/DL Creatinine 1.67 MG/DL 1.60 MG/DL Random Glucose 214 MG/DL 171 MG/DL Calcium Level 9.8 MG/DL 9.9 MG/DL Sodium Level 145 MEQ/L 146 MEQ/L Chloride Level 114 MEQ/L 115 MEQ/L Carbon Dioxide Level 27.0 MEQ/L 26.0 MEQ/L Anion Gap 4 MEQ/L 5 MEQ/L Estimat Glomerular Filtration Rate 42 ML/MIN 44 ML/MIN Phosphorus Level 3.0 MG/DL Magnesium Level 2.0 MG/DL Test 04/28/17 13:25 04/29/17 04:04 Potassium Level 5.5 MEQ/L 5.3 MEQ/L Blood Urea Nitrogen 56 MG/DL Creatinine 1.85 MG/DL Random Glucose 141 MG/DL Calcium Level 9.5 MG/DL Sodium Level 144 MEQ/L Chloride Level 112 MEQ/L Carbon Dioxide Level 25.4 MEQ/L Anion Gap 7 MEQ/L Estimat Glomerular Filtration Rate 37 ML/MIN Microbiology Date/Time Source Procedure Growth Status 04/27/17 14:07 Blood Peripheral Aerobic Blood Culture - Preliminary NO GROWTH IN 2 DAYS Resulted 04/27/17 14:07 Anaerobic Blood Culture - Preliminary Gram Positive Cocci Resulted 04/27/17 14:00 Blood Peripheral Aerobic Blood Culture - Preliminary NO GROWTH IN 2 DAYS Resulted 04/27/17 14:00 Blood Peripheral Anaerobic Blood Culture - Preliminary NO GROWTH IN 2 DAYS Resulted 04/27/17 11:00 Sputum Endotracheal Gram Stain - Final Resulted 04/27/17 11:00 Sputum Culture - Preliminary Gram Negative Holger Resulted 04/27/17 14:30 Urine Clean Catch Urine Culture - Preliminary Yeast Species Resulted Imaging Chest X-Ray 04/27/17 0600 Signed Impressions: Service Date/Time: Thursday, April 27, 2017 05:19 - CONCLUSION: Improved aeration. Cornel Harrison MD Chest X-Ray 04/26/17 0000 Signed Impressions: Service Date/Time: April 23:35 - CONCLUSION: Right central venous catheter placement. Worsening appearance of the chest. Cornel Harrison MD Chest X-Ray 04/17/17 0000 Signed Impressions: Service Date/Time: Monday, April 17, 2017 03:40 - CONCLUSION: Mild left effusion and possible accompanying atelectasis or consolidation at the left base Angelo Manzo MD Thoracentesis 04/13/17 1054 Signed Impressions: Service Date/Time: Thursday, April 13, 2017 15:26 - CONCLUSION: Uncomplicated CT-guided right thoracentesis. Candido Mendoza Jr., MD Chest CT 04/12/17 1558 Signed Impressions: Service Date/Time: March 17:51 - CONCLUSION: 1. Slight increase in size of bilateral effusions and basilar atelectasis, left greater than right compared with February 27. Tracheostomy in good position. Trace Holloway MD Renal Ultrasound 04/02/17 0000 Signed Impressions: Service Date/Time: Sunday, April 02, 2017 16:59 - CONCLUSION: Limited exam with the left kidney being unable to be evaluated in the bladder not distended. There do appear to be multiple shadowing stones at the right kidney without hydronephrosis. Angelo Manzo MD Wrist X-Ray 03/27/17 0000 Signed Impressions: Service Date/Time: Monday, March 27, 2017 13:21 - CONCLUSION: 1. No acute fracture is identified. A portion of the previously documented distal ulna fracture remains visualized. 2. 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 Angelo Allen MD Aortography 02/28/17 0000 Signed Impressions: Service Date/Time: Tuesday, February 28, 2017 08:01 - CONCLUSION: 1. Active hemorrhage from distal right lateral sacral and iliolumbar branches successfully coil and Gelfoam embolized, as above. Juan Bhakta MD Abdomen/Pelvis CT 02/28/17 0000 Signed Impressions: Service Date/Time: Tuesday, February 28, 2017 06:51 - CONCLUSION: 1. The right retroperitoneal hematoma has increased in size, as above. There are 2 serpiginous arterially enhancing structures visualized, one in the right psoas muscle and another extending into the hematoma at the right iliac fossa. These could represent sites of continued active bleeding. 2. Stable moderate size left and small right pleural effusion with associated compressive atelectasis. 3. Stable small volume of free fluid in the abdomen and pelvis. There is also anasarca. The findings concerning the retroperitoneal hematoma were discussed with Dr. Biga via telephone at approximately 7: 10 AM on 02/28/2017. Angelo Allen MD Abdomen X-Ray 02/26/17 Signed Impressions: Service Date/Time: Sunday, February 26, 2017 14:52 - CONCLUSION: 1. Nonobstructive bowel gas pattern. Juan Bhakta MD Upper Extremity Ultrasound 02/10/17 Signed Impressions: Service Date/Time: Friday, February 10, 2017 18:46 - CONCLUSION: Occlusive thrombus in the cephalic and basilic veins. Benjamin Person MD Lung Scan-V Nuclear Medicine 02/10/17 Signed Impressions: Service Date/Time: Friday, February 10, 2017 22:17 - CONCLUSION: Low probability pulmonary embolism. Candido Patton MD Head CT 02/10/17 Signed Impressions: Service Date/Time: Friday, February 10, 2017 23:51 - CONCLUSION: Negative noncontrast CT brain. Candido Patton MD Lumbar Puncture Fluoroscopy 02/01/17 Signed Impressions: Service Date/Time: January 09:35 - CONCLUSION: Uncomplicated fluoroscopically guided lumbar puncture. CSF was clear. Nabeel Peralta MD Head Magnetic Resonance Angiography 01/27/17 Signed Impressions: Service Date/Time: Friday, January 27, 2017 10:33 - CONCLUSION: No intracranial vascular abnormality is identified. There is no aneurysm visualized. Angelo Allen MD IVC Filter Placement X-Ray 01/25/17 Signed Impressions: Service Date/Time: January 10:29 - CONCLUSION: Uncomplicated inferior vena cava filter placement as above. Yung Fowler MD Thoracic Spine MRI 01/24/17 Signed Impressions: Service Date/Time: Tuesday, January 24, 2017 22:29 - CONCLUSION: 1. Mild degenerative spondylosis most prominently at T11-L1 with slight effacement of the anterior thecal sac and left lateral recess. No significant neural foraminal stenosis. 2. No acute fracture. Juan Bhakta MD Lumbar Spine MRI 01/23/17 Signed Impressions: Service Date/Time: Monday, January 23, 2017 17:01 - CONCLUSION: 1. At L4-5 is a broad-based disc protrusion with severe central canal and lateral recess stenosis and flattening of the exiting right L4 nerve root. 2. L5-S1 there is a disc protrusion and moderate stenosis with flattening of the exiting L5 nerve roots bilaterally. 3. At L3-4 there is a moderate to severe central stenosis and lateral recess stenosis with mild foraminal stenosis. 4. No acute fracture or spondylolisthesis. Trace Holloway MD Lower Extremity Ultrasound 01/23/17 Signed Impressions: Service Date/Time: Monday, January 23, 2017 09:53 - CONCLUSION: Bilateral focal lower extremity DVT involving the posterior tibial veins. Angelo Garrido MD Cervical Spine MRI 01/23/17 Signed Impressions: Service Date/Time: Monday, January 23, 2017 17:01 - CONCLUSION: 1. Multilevel cervical spine degenerative changes as above. 2. Mild degrees of spinal stenosis at C3/C4-C6/C7. No cord compression or cord signal abnormality. 3. Age indeterminate left paracentral/foraminal disc protrusion at C6/C7. 4. Multilevel foraminal stenosis, most severe on the left at C6/C7. Please see individual levels above. 5. No fracture or subluxation of the cervical spine. Angelo Garrido MD Brain MRI 01/23/17 Signed Impressions: Service Date/Time: Monday, January 23, 2017 17:01 - CONCLUSION: 1. No acute stroke or other acute intracranial abnormality demonstrated. 2. Moderate severity chronic white matter changes, nonspecific but most likely related to chronic small vessel disease. 3. Few scattered tiny lacunar infarcts of the brainstem. 4. Given the findings are not entirely specific, clinical evaluation for possible multiple sclerosis recommended. Angelo Garrido MD Knee X-Ray 01/22/[id number] Signed Impressions: Service Date/Time: Sunday, January 22, 2017 21:17 - CONCLUSION: 1. Evidence of moderate to large joint effusion. 2. No acute fracture or malalignment. 3. Mild 3 compartment osteoarthritic change. Benjamin Person MD Hip and Pelvis X-Ray [id number]/22/[id number] Signed Impressions: Service Date/Time: Sunday, January 22, 2017 21:10 - CONCLUSION: 1. Mild to moderate degenerative change of both hips with no acute fracture or malalignment. There is flattening and remodeling of the right humeral head. Benjamin Person MD Physical Exam GENERAL: Sedated on the vent, NAD SKIN: Cool and dry. No generalized rash. Edematous in extremities. EYES: [place] conjunctiva. No petechia or hemorrhage. EARS, NOSE AND THROAT: Nose without bleeding or purulent nasal discharge. Dry oral mucosa NECK: Trach site ok. CARDIOVASCULAR: Regular rate and rhythm. Soft heart sounds. No murmurs RESPIRATORY: Coarse BS bilaterally, decreased at bases. ABDOMEN: Soft, not tender, distended, PEG site ok. No guarding rectal tube in place with small amount of liquid stool EXTREMITIES: No clubbing, cyanosis. Edema +++. Dry dressing on R leg wounds. Oosing of fluid around legs dressing soaked. Generalized anasarca. NEUROLOGICAL: sedated PSYCHIATRIC: unable to assess LINE: Lines with no evidence of infection Assessment & Plan Remarks IMPRESSION Recurrent respiratory failure, ?plugging - last CXR better New Sepsis (fever and leucocytosis), temps up again x 1, and WBC still elevated - resolved Aspiration Pneumonia in health care setting. Mucus plugs with atelectasis. Leucocytosis, persistent, but decreasing ESBL in urine in recent past. 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 PNA, ?plugging/atelctasis - MDR, I to Zerbaxa, has been tolerating T-piece - likely effusion adding to his respiratory problems, on top of his plugging /secretions Large R retroperitoneal bleed, S/P multiple transfusions and S/P coiling of bleeders Anemia, due to bleed, retroperitoneal MSSA sepsis, due to suppurative thrombophlebitis LUE, S/P I and D and excision of portion of cephalic vein - S/P Rx Respiratory failure, has had several intubations - reintubated again 02/28, extubated 03/11 - reintubated again - S/P trach 03/14 Rx 7 days high dose solumedrol for transverse myelitis Wu LE DVT has IVC filter placed 01/25 - ?hypercoagulable state Chronic kidney disease, worsening creatinine - shock and compression of ureter by hematoma Known DM, HTN Diarrhea, ? C.diff - invalid result, needs to be repeated RECOMMENDATION Start Zerbaxa IV (ASP: recently treated for MDR PSAE and now with GNR in sputum and s.o new infection) Continue Tobra nebs, will give 14 days Restart Diflucan with higher dose as patient has C.glabrata which needs higher urinary levels to be effectively treated. Sloan changed on 04/24/17. CL new from 04/27/2017. Less likely to be CLABSI. Suspect GPC is a contaminant. Await ID and repeat BCX results. Will hold off on Vanco IV for now Cr elevated would like to avoid nephrotoxic agents. If clinical change overnight d.w to start GP coverage Dapto or Zyvox IV. Continue oral Vanco, end date ordered. Repeat Cdiff PCR ordered. Repeat sputum G/S C/S. Repeat Blood cultures x 2. Follow temps Follow CBC Monitor progress Patient back on the vent D/W RN Dr Carrie Puente covering this weekend Andressa Puente MD Apr 29, 2017 12:02
[2017-04-29] MEDS: FLUCONAZOLE 200 MG TAB PO SCH (14:29)
[2017-04-29] MEDS: CEFTOLOZANE-TAZOBACTAM INJ 1,500 MG in SODIUM CHLORIDE 0.9% INJ 100 ML IV SCH ×2 (14:30→22:48)
[2017-04-29] MEDS: ATORVASTATIN 10 MG TAB PO SCH (20:15)
[2017-04-30] VITALS (18 sets, daily range): BP systolic 92–136; BP diastolic 53–63; PULSE 94–111; RESP 24–27; TEMP 97.8–99.2; O2SAT 92–100
[2017-04-30] MEDS: VANCOMYCIN 500 MG VIAL (FOR ORAL USE ONLY) PO SCH ×4 (02:06→20:38)
[2017-04-30] MEDS: oxyCODONE HCL ORAL CONC 5 MG/0.25 ML SYRINGE PO SCH ×6 (02:07→20:41)
[2017-04-30 04:30] LABS: AUTOMATED NEUTROPHIL # 17.8 TH/MM3 (1.8-7.7); BASOPHIL # 0.1 TH/MM3 (0-0.2); BASOPHIL % 0.2 % (0.0-2.0); EOSINOPHIL # 3.2 TH/MM3 (0-0.4); EOSINOPHIL % 12.5 % (0.0-4.0); HEMATOCRIT 27.1 % (39.0-51.0); LYMPH % 7.1 % (9.0-44.0); LYMPHOCYTE # 1.8 TH/MM3 (1.0-4.8); MEAN CELL VOLUME 86.7 FL (80.0-100.0); MEAN CORPUSCULAR HEMOGLOBIN 27.2 PG (27.0-34.0); MEAN CORPUSCULAR HGB CONC 31.4 % (32.0-36.0); MONO % 9.5 % (0.0-8.0); NEUT % 70.7 % (16.0-70.0); PLATELET COUNT 306 TH/MM3 (150-450); RED BLOOD COUNT 3.13 MIL/MM3 (4.50-5.90); RED CELL DISTRIBUTION WIDTH 17.6 % (11.6-17.2); WHITE BLOOD COUNT 25.1 TH/MM3 (4.0-11.0)
[2017-04-30 04:34] LABS: HEMO FLAGS AUTO DIFF
[2017-04-30 05:15] LABS: BICARBONATE 25.6 MEQ/L (21.0-32.0); POTASSIUM 4.4 MEQ/L (3.5-5.1)
[2017-04-30] MEDS: CEFTOLOZANE-TAZOBACTAM INJ 1,500 MG in SODIUM CHLORIDE 0.9% INJ 100 ML IV SCH ×3 (05:29→20:37)
[2017-04-30] MEDS: HYDROCORTISONE 10 MG TAB PO SCH ×3 (05:29→20:37)
[2017-04-30] MEDS: INSULIN ASPART SUPPLEMENTAL SCALE SQ SCH ×4 (05:29→23:56)
[2017-04-30] MEDS: FREE WATER G-TUBE SCH (05:30)
[2017-04-30 06:09] LABS: C. DIFF EPI 027 PRESUMPTIVE NEGATIVE (NEGATIVE)
[2017-04-30 06:53] LABS: BANDS 1 % (0-6); EOSINOPHILS 21 % (0-4); MYELOCYTES 3 % (0-0); NEUTROPHIL # MANUAL DIFF 16.8 TH/MM3 (1.8-7.7); POLYS (SEG NEUTROPHILS) 63 % (16-70); WBC DIFF SAMPLE 100
[2017-04-30 06:54] LABS: PLATELET ESTIMATE SMEAR NORMAL (NORMAL); PLATELET MORPHOLOGY NORMAL (NORMAL); SCAN/DIFF FINAL DIFF MANUAL
[2017-04-30] MEDS: RESP: ALBUTEROL 2.5 MG/IPRATROPIUM 0.5 MG NEB (PRN) NEB ×2 (08:14→19:36)
[2017-04-30] MEDS: RESP: TOBRAMYCIN SULFATE 80 MG/2 ML NEB NEB SCH ×2 (08:14→20:18)
--- NOTE | 2017-04-30 08:25 | HHI.CCPN ---
Subjective Remarks/Hospital Course Date of admission: 01/22 Date of critical care medicine consult 02/10 due to acute hypoxemic respiratory failure requiring emergent intubation 62-year-old male with a past medical history of hypertension, hyperlipidemia, diabetes mellitus, gout, uric acid kidney stones, kidney disease of unknown stage who originally presented to [facility] emergency department on 01/22 after a fall in which he sustained a right distal ulna fracture. He had been experiencing a gradual primarily lower extremity weakness as well as upper extremity weakness that was progressive. Neurology consult was obtained. MRI revealed no acute stroke. He had multifocal white matter changes. Tiny lacunar infarcts of the brainstem. Lumbar MRI report states L4-L5 disc protrusion with cetnral canal stenosis. Dr. Blackwell evaluated and states no cord compression on MRI C/T spine and recommended nonoperative management. Symptoms were felt to be consistent with transverse myelitis and he underwent Solumedrol 250 mg IV q6 hours 01/27-02/02. He also was found to have occlusive thrombus in the bilateral posterior tibial veins. Heparin was being avoided because he had traumatic lumbar puncture on 01/26 and 02/01. IVC filter was placed 01/25. He was undergoing physical therapy, reportedly making some improvements with plan to eventually discharged home with his son (max assist standing, and bed to chair per PT note). Apparently he had some vomiting the evening of 02/09 and additional vomiting on 02/10. He had a fever 102.8 on 02/09. Last recorded bowel movement was 02/03. Tonight he had acute onset of severe hypoxemia and respiratory distress. [facility] called and he was brought emergently to [facility] where his sats were 64% on 100% nonrebreather with mean arterial pressure 44. He was emergently intubated, CVL and art line placed. He is in septic shock. SUBJ: 02/11: Patient remains intubated sedated, critically ill. FiO2 reduced to 80% after increasing PEEP to 12. In severe septic shock Levophed at 16 mcg/m, vasopressin at 0.04 international units. D/W vascular surgery Dr. Enciso. He performed bedside Left upper extremity incision and debridement and excision of septic cephalic vein. 02/12: Remains intubated sedated profoundly septic, in shock on vasopressin and 7 mcg/min Levophed. FiO2 has improved to 45%, WBC count remains elevated with 20 ,000 white count significant left shift. Slight improvement in creatinine 2.9 urine output 750 ml 24 hours. 2-D echo shows LV ejection fraction 20-25%, no vegetation reported. Blood cultures 4 staph aureus. Wound culture pending 02/13: Remains critically ill but stable to improving. WBC count is down to 16, creatinine improving to 2.36. Off all pressors. Urine output also improving. 1.5L in 24 hours 02/14: Extubated 02/13. Tolerating well. WBC now down to 12.8. Creat improving 2.3 to 2. UO 3.4L. remains off all pressors. Was started on Precedex yesterday night for agitation, currently on 0.5 g per KG per hour. Chest x-ray shows left more than right air space disease 02/20/17 Re consult: 62-year-old male who was originally admitted for lower extremity weakness and found to have what was thought to be possible transverse myelitis. His hospital course his included a healthcare associated pneumonia, septic thrombophlebitis, DVT. He was most recently in the hospital floor where he had significant nausea and vomiting and diarrhea. His C. difficile test was recently negative. However, he has experienced worsening acute on chronic renal failure, hypotension, tachycardia, and severe hypoxemia. He did have a bout of vomiting earlier today, and his hospitalist attending suspects that he may have aspirated. He arrives by rapid response to the ICU with a nonrebreather in place in severe respiratory distress with SPO2 of 85%. I emergently intubate the patient, see separate procedure note for details. At this point the patient was hypotensive and tachycardic. He does have a history of an EF of 20%, however clinically he appears in florid septic shock. I placed central line and arterial line started vasopressors and gentle IV fluid resuscitation with 1 L of LR. Patient today was empirically broadened to vancomycin and Zosyn from his oxacillin which was initially treating MSSA bacteremia. He is recultured. Critical-care medicine is consulted to evaluate and manage his worsening multiorgan system failure and decompensated septic shock 02/21: Patient remains intubated sedated. Becomes anxious tachypnea on sedation lightening. Chest x-ray shows mild left lower lobe infiltrate. WBC count is slightly improved today from 23.2 t0 21. C Diff negative. UO adequate, creat slightly worsening. 1.57 today 02/22: Remains intubated sedated tolerated CPAP yesterday, plan is for EGD/ Colonscopy. WBC count back to normal. UO adequate. Creat stable 02/23: Tolerating CPAP trials following commands. Will do a spontaneous breathing trials. Status post EGD colonoscopy yesterday -Gastritis, esophagitis. Diverticulosis and multiple polyps. Urine output adequate but creatinine increasing to 1.7 with patient requiring multiple straight catheterization. We'll reinsert Sloan. 02/24: Breathing comfortably 24 hours after extubation. Protects airway well. 02/25: Excoriate bottom, will place rectal FMS. Start pureed diet. 02/26: Afebrile. Complaining of nausea and vomiting this afternoon. Increased stool output. Continue potassium replacement today. 02/27: 10 PM overnight, acutely hypotensive. Received 3 units PRBCs. Antibiotic coverage broadened to piperacillin/tazobactam, cortisol and 1 dose of vancomycin. Oxacillin drip currently on hold. Symptomatically, patient continues to vague abdominal pain/nausea vomiting which is unchanged for the past several days. Lipase elevated yesterday. Lactic acid normal. Troponin normal. Urinary retention after removal of Sloan. Straight catheter 1300. Cc 02/28: New diagnosis large retroperitoneal hematoma. Received 10 PRBC, 14 FFP, 2 platelets, 1 cryo-, 6 g calcium chloride, 2 is magnesium sulfate and 4 mg Bumex. CTA abdomen revealed possible arterial bleeds iliac, lumbar. Patient is currently on norepinephrine and epinephrine drips and possible need right nephrostomy tube placement due to large hematoma compressing ureter. Intra-abdominal bladder pressures are currently 13 03/01: Afebrile. Received 25 g albumin and 1 unit PRBCs overnight. Intra- abdominal bladder pressures currently 19. Currently on 3 micrograms per minute of norepinephrine. Yecno-it-mzso 1 out of 4 on 4 mics grams per kilogram per minute of cisatracurium. 03/02: Slightly hypothermic overnight. Hemoglobin appears to have stabilized. Troponin bump overnight likely secondary to demand ischemia from hypotension. Hemodynamically stable off all vasopressors. 03/03: Received 1 PRBCs overnight. 3 units currently. Off all vasopressors. Likely rebleeding. Stool is dark. 03/04: Remains unstable. Ventilator dependent. 03/05: afebrile. hgb stable. 03/06: bumex drip started overnight. good uop after bumex initiated. still grossly volume overloaded. Cr downtrending. more awake with transition to propofol. still too volume overloaded to tolerate extubation. hgb stable. 03/07: Afebrile. Tolerating tube feeds at goal with Nepro. Positive BM. On low-dose fentanyl and propofol drips. Potassium currently being replaced. 03/08: Eyes will open on ventilator. Afebrile. Tolerating tube feeding. Failed PSV trial yesterday due to apnea. 03/09: Following commands. Tmax 101. Tolerating tube feeding. One hour PSV trial yesterday. Currently tolerating well so far today 1.5 hours 03/10: Low-grade temperatures. Tolerating PSV trial 10 hours yesterday. Currently at 5/5 at 35%. We'll probably attempt extubation a.m. after hemodialysis. 03/11: Extubated currently in 4 L nasal cannula. Thick secretions thick clear with cough. Currently afebrile. Tolerating diet previously. 03/12: Sleepy this morning but arouses. Following commands. Refusing diet at the present time. On 2 L nasal cannula. 03/13: Patient reintubated last night for worsening respiratory status. Currently sedated on mechanical ventilation. Became hypotensive following intubation and is on Levophed 20 mics per minute. 03/14: Sedated, orally intubated on mech vent at the time of my evaluation this AM, subsequently underwent perc trach placement. Remains on levophed for pressor support. Transfused 1 unit PRBCs today. Persisten 03/15: Trach site clean, dry. CXR with bilateral basilar infiltrates. 03/16: Pulmonary congestion persists. Clinical condition not improving. Prognosis becoming increasingly bleak. 03/17: Glucose intolerance worse. No improvement in neurological function. 03/18: Remains on mechanical ventilation via tracheostomy. Off pressors now. Neurologic status remains poor. 03/19: Drowsy, encephalopathic, arousable. On mechanical ventilation via tracheostomy. Levemir increased for hyperglycemia today. Remains off pressors 03/20: More awake, moves both upper extremities. On mechanical ventilation via tracheostomy. Daily C Pap trials ongoing. 03/21: Awake and alert. On mechanical ventilation via tracheostomy. Opens and closes eyes on command. 03/22: Awake and alert. Tolerated T PIECE for 7 hours yesterday. Dialyzed today. 03/23: Currently on T piece trial. Status post dialysis yesterday on 3 L. Awake and alert. Wants to eat. Subjective 03/24: Currently afebrile. Hemodialysis catheter discontinued yesterday from left IJ. Persistent leukocytosis noted. Potassium will be replaced. Furosemide 40 mg twice a day IV to 20 mg IV twice a day 03/25: WBC count unchanged. Patient on T piece with humidified air greater than 48 hours, tolerating it well. Reconsulted 04/12: The patient was transferred emergently from the floor/ [facility]. Patient was initially seen by recreation technician Dr. Estrada, and the patient was noted to be tachypneic on T piece of 40%. ABGs were performed which showed a PaO2 of 60 on T piece of FiO2 of 40%. Chest x-ray was performed which showed loss of entire left hemidiaphragm press assistant and feeder consolidation in the left lower lobe. Concern for mucus plugging versus fluid. The patient was transferred emergently to [facility] [place] placed on a ventilator CT of the chest is pending. Upon arrival in the room the patient is alert and oriented, mouthing words, nodding head to yes and no questions O2 sat is 100% but patient is currently on mechanical ventilation. Currently in no respiratory distress. 04/13: Tmax 99.8. The patient's oxygen requirements have decreased currently FiO2 35% with a PaO2 1 blood gas of 85, O2 saturation 100%. No respiratory distress noted. Patient underwent CT of the chest yesterday noted pleural effusions left greater than right, diagnostic/and therapeutic CT thoracentesis plan for this a.m.. 04/14: Patient underwent CT-guided thoracentesis of the right side with approximately 600 cc withdrawn. Today recreation technician Dr. LABOY in and up size indwelling 6.0 Shiley to a 8.0 Shiley. Minimal bleeding noted around the site. X-ray improving. Patient started on CPAP trials today, as well as tube feeds were initiated. 04/15: Placed on T piece this morning via tracheostomy. Appears to be tolerating it. Laying in bed not in any acute distress. 04/16: Awake and alert. Tolerating T piece. Tolerating PEG feeds. 04/17: Awake and alert. Tolerating T piece. Tolerating tube feeds via PEG 04/18: Awake and alert. Tolerating TPs. Tolerating tube feeds. Passed swallow eval 04/19: Awake and alert. Remains on T piece. Wants to move out of ICU as he indicates to me once again as he has for the past few days. Awaiting [facility]IC bed 04/20: Awake and alert. Remains on T piece. Developed hypotension last night for which she was transiently on Levophed however has been off since early this morning. ID adjusting antibiotics and working up for new sepsis. 04/21: Awake and alert. On T piece. Awaiting [facility]IC bed for the last few days. 04/22: Awake and alert. Remains on T piece. Received 500 cc normal saline this morning for tachycardia. 04/23 No events overnight. Remains on TP's with 35% FIO2. Afebrile. 04/24: Resting comfortably. Got short of breath with Passy-Rafy valve which was taken off. 04/25: Remains on T piece. Awaiting transfer out of ICU. 04/26: Remains on T piece. Still awaiting transfer out of ICU since 04/17. 04/27 Patient became hypotensive, bradycardic and hypoxic, ABG on TP's last night showed acute hypercapnic resp acidosis (PH 7.10, CO2: 80) he was subsequently placed on mechanical ventilator. Patient was given Albumin, 2u PRBC and started on Levophed 3mics. Renal function worse today with Cr: 1.53 from 1.13 04/28 No events overnight off Levophed since yesterday. On no sedation. Afebrile. 04/29 Patient is on ventilator via trach. T;100.4 04/30 Patient remains on ventilator via trach. Afebrile. Objective Vital Signs Date Time Temp Pulse Resp B/P (MAP) Pulse Ox O2 Delivery O2 Flow Rate FiO2 04/30/17 06:00 104 04/30/17 04:00 99.2 24 100/61 (74) 98 04/30/17 04:00 40 04/29/17 19:00 Mechanical Ventilator 04/26/17 20:22 6.00 Intake and Output 04/30/17 04/30/17 05/01/17 08:00 16:00 00:00 Intake Total 920 ml Output Total 625 ml Balance 295 ml Result Diagram: 04/30/17 0350 04/30/17 0350 Other Results Laboratory Tests Test 04/29/17 18:00 04/30/17 03:50 04/30/17 04:00 Potassium Level 5.2 MEQ/L 4.4 MEQ/L White Blood Count 25.1 TH/MM3 Red Blood Count 3.13 MIL/MM3 Hemoglobin 8.5 GM/DL Hematocrit 27.1 % Mean Corpuscular Volume 86.7 FL Mean Corpuscular Hemoglobin 27.2 PG Mean Corpuscular Hemoglobin Concent 31.4 % Red Cell Distribution Width 17.6 % Platelet Count 306 TH/MM3 Mean Platelet Volume 7.4 FL Neutrophils (%) (Auto) 70.7 % Lymphocytes (%) (Auto) 7.1 % Monocytes (%) (Auto) 9.5 % Eosinophils (%) (Auto) 12.5 % Basophils (%) (Auto) 0.2 % Neutrophils # (Auto) 17.8 TH/MM3 Lymphocytes # (Auto) 1.8 TH/MM3 Monocytes # (Auto) 2.4 TH/MM3 Eosinophils # (Auto) 3.2 TH/MM3 Basophils # (Auto) 0.1 TH/MM3 CBC Comment AUTO DIFF Differential Total Cells Counted 100 Neutrophils % (Manual) 63 % Band Neutrophils % 1 % Lymphocytes % 8 % Monocytes % 4 % Eosinophils % 21 % Neutrophils # (Manual) 16.8 TH/MM3 Myelocytes 3 % Differential Comment FINAL DIFF MANUAL Platelet Estimate NORMAL Platelet Morphology Comment NORMAL Blood Urea Nitrogen 62 MG/DL Creatinine 2.05 MG/DL Random Glucose 116 MG/DL Calcium Level 9.3 MG/DL Sodium Level 124 MEQ/L Chloride Level 92 MEQ/L Carbon Dioxide Level 25.6 MEQ/L Anion Gap 6 MEQ/L Estimat Glomerular Filtration Rate 33 ML/MIN Stool C. difficile Toxin (PCR) NEGATIVE Stl C. difficile Toxin Epiderm 027 PRESUMPTIVE NEGATIVE Imaging Last Impressions Chest X-Ray 04/27/17 0600 Signed Impressions: Service Date/Time: Thursday, April 27, 2017 05:19 - CONCLUSION: Improved aeration. Cornel Harrison MD Thoracentesis 04/13/17 1054 Signed Impressions: Service Date/Time: Thursday, April 13, 2017 15:26 - CONCLUSION: Uncomplicated CT-guided right thoracentesis. Candido Mendoza Jr., MD Chest CT 04/12/17 3279 Signed Impressions: Service Date/Time: March 17:51 - CONCLUSION: 1. Slight increase in size of bilateral effusions and basilar atelectasis, left greater than right compared with February 27. Tracheostomy in good position. Trace Holloway MD Renal Ultrasound 04/02/17 0000 Signed Impressions: Service Date/Time: Sunday, April 02, 2017 16:59 - CONCLUSION: Limited exam with the left kidney being unable to be evaluated in the bladder not distended. There do appear to be multiple shadowing stones at the right kidney without hydronephrosis. Angelo Manzo MD Wrist X-Ray 03/27/17 0000 Signed Impressions: Service Date/Time: Monday, March 27, 2017 13:21 - CONCLUSION: 1. No acute fracture is identified. A portion of the previously documented distal ulna fracture remains visualized. 2. 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 Angelo Allen MD Aortography 02/28/17 0000 Signed Impressions: Service Date/Time: Tuesday, February 28, 2017 08:01 - CONCLUSION: 1. Active hemorrhage from distal right lateral sacral and iliolumbar branches successfully coil and Gelfoam embolized, as above. Juan Bhakta MD Abdomen/Pelvis CT 02/28/17 0000 Signed Impressions: Service Date/Time: Tuesday, February 28, 2017 06:51 - CONCLUSION: 1. The right retroperitoneal hematoma has increased in size, as above. There are 2 serpiginous arterially enhancing structures visualized, one in the right psoas muscle and another extending into the hematoma at the right iliac fossa. These could represent sites of continued active bleeding. 2. Stable moderate size left and small right pleural effusion with associated compressive atelectasis. 3. Stable small volume of free fluid in the abdomen and pelvis. There is also anasarca. The findings concerning the retroperitoneal hematoma were discussed with Dr. Aguiar via telephone at approximately 7: 10 AM on 02/28/2017. Angelo Allen MD Abdomen X-Ray 02/26/17 0000 Signed Impressions: Service Date/Time: Sunday, February 26, 2017 14:52 - CONCLUSION: 1. Nonobstructive bowel gas pattern. Juan Bhakta MD Upper Extremity Ultrasound 02/10/17 0000 Signed Impressions: Service Date/Time: Friday, February 10, 2017 18:46 - CONCLUSION: Occlusive thrombus in the cephalic and basilic veins. Benjamin Person MD Lung Scan-V Nuclear Medicine 02/10/17 0000 Signed Impressions: Service Date/Time: Friday, February 10, 2017 22:17 - CONCLUSION: Low probability pulmonary embolism. Candido Patton MD Head CT 02/10/17 0000 Signed Impressions: Service Date/Time: Friday, February 10, 2017 23:51 - CONCLUSION: Negative noncontrast CT brain. Candido Patton MD Lumbar Puncture Fluoroscopy 02/01/17 0000 Signed Impressions: Service Date/Time: January 09:35 - CONCLUSION: Uncomplicated fluoroscopically guided lumbar puncture. CSF was clear. Nabeel Peralta MD Head Magnetic Resonance Angiography 01/27/17 0000 Signed Impressions: Service Date/Time: Friday, January 27, 2017 10:33 - CONCLUSION: No intracranial vascular abnormality is identified. There is no aneurysm visualized. Angelo Allen MD IVC Filter Placement X-Ray 01/25/17 0000 Signed Impressions: Service Date/Time: January 10:29 - CONCLUSION: Uncomplicated inferior vena cava filter placement as above. Yung Fowler MD Thoracic Spine MRI 01/24/17 0000 Signed Impressions: Service Date/Time: Tuesday, January 24, 2017 22:29 - CONCLUSION: 1. Mild degenerative spondylosis most prominently at T11-L1 with slight effacement of the anterior thecal sac and left lateral recess. No significant neural foraminal stenosis. 2. No acute fracture. Juan Bhakta MD Lumbar Spine MRI 01/23/17 0000 Signed Impressions: Service Date/Time: Monday, January 23, 2017 17:01 - CONCLUSION: 1. At L4-5 is a broad-based disc protrusion with severe central canal and lateral recess stenosis and flattening of the exiting right L4 nerve root. 2. L5-S1 there is a disc protrusion and moderate stenosis with flattening of the exiting L5 nerve roots bilaterally. 3. At L3-4 there is a moderate to severe central stenosis and lateral recess stenosis with mild foraminal stenosis. 4. No acute fracture or spondylolisthesis. Trace Holloway MD Lower Extremity Ultrasound 01/23/17 Signed Impressions: Service Date/Time: Monday, January 23, 2017 09:53 - CONCLUSION: Bilateral focal lower extremity DVT involving the posterior tibial veins. Angelo Garrido MD Cervical Spine MRI 01/23/17 Signed Impressions: Service Date/Time: Monday, January 23, 2017 17:01 - CONCLUSION: 1. Multilevel cervical spine degenerative changes as above. 2. Mild degrees of spinal stenosis at C3/C4-C6/C7. No cord compression or cord signal abnormality. 3. Age indeterminate left paracentral/foraminal disc protrusion at C6/C7. 4. Multilevel foraminal stenosis, most severe on the left at C6/C7. Please see individual levels above. 5. No fracture or subluxation of the cervical spine. Angelo Garrido MD Brain MRI 01/23/17 Signed Impressions: Service Date/Time: Monday, January 23, 2017 17:01 - CONCLUSION: 1. No acute stroke or other acute intracranial abnormality demonstrated. 2. Moderate severity chronic white matter changes, nonspecific but most likely related to chronic small vessel disease. 3. Few scattered tiny lacunar infarcts of the brainstem. 4. Given the findings are not entirely specific, clinical evaluation for possible multiple sclerosis recommended. Angelo Garrido MD Knee X-Ray [id number]/[id number] Signed Impressions: Service Date/Time: Sunday, January 22, 2017 21:17 - CONCLUSION: 1. Evidence of moderate to large joint effusion. 2. No acute fracture or malalignment. 3. Mild 3 compartment osteoarthritic change. Benjamin Person MD Hip and Pelvis X-Ray [id number] Signed Impressions: Service Date/Time: Sunday, January 22, 2017 21:10 - CONCLUSION: 1. Mild to moderate degenerative change of both hips with no acute fracture or malalignment. There is flattening and remodeling of the right humeral head. Benjamin Person MD Objective Remarks GENERAL: 62-year-old male, resting in bed, on mechanical ventilation via trach HEENT: Normocephalic. Atraumatic. Pupils equal, round, reactive. NECK: Tracheostomy in place, around trach site erythematous, yellowish drainage CHEST: b/l equal air entry decreased bilaterally . Scattered rhonchi, no wheezing CARDIOVASCULAR: S1-S2 regular, no gallop or murmur ABDOMEN distended. No rigidity. Umbilical hernia is reducible. No guarding. PEG tube in place : Positive scrotal edema Sloan in situ MUSCULOSKELETAL: Pulses 2+. 1+ bilateral upper and lower extremity edema. NEUROLOGICAL: Awake and alert, has spontaneous eye opening. Opens and closes eyes on command. Moves 4 limbs weakly to stimulation. Procedures 01/25/2017- Retrievable IVC Filter placement 01/26/17-lumbar puncture with fluoroscopy-by interventional radiology 02/01/17- lumbar puncture fluoroscopy by interventional radiology 02/10/17- Endotracheal Intubation 02/10/17-left IJ central venous line placed 02/10/17-left femoral arterial line placed 02/11/17-Diagnostic and therapeutic bronchoscopy with bronchoalveolar lavage 02/11/17-Left upper extremity incision and debridement with excision of septic cephalic vein 02/13/17- Extubated 02/20/17- endotracheal intubation 02/20/17- Left subclavian central line placement 02/20/17-Right radial A-line placement 02/22/17-EGD/colonoscopy 02/28/17-right radial a line 02/28/17- Endotracheal intubation 02/28/17- right sided introducer catheter placement 02/28/17- Right IJ central line placement 02/28/17-Right chest tube placement 02/28/17- Embolization of inferior and superior sacral branches of right internal iliac artery 03/01/17- Hemodialysis access catheter 03/03/17-Right IJ central line placement 03/11/17-Extubated 03/13/17- Endotracheal intubation 03/14/17-Tracheostomy placement, trach downsized to 6.0 Anni 03/30/17 03/15/17-PEG tube placement 04/11/17-CT Chest 04/13/17-thoracentesis right 600 cc removed Date of Insertion: Feb 20, 2017 Date of Insertion: Mar 03, 2017 Line: Central Venous Catheter Side: Right Location: Internal, Jugular A/P Problem List: (1) Septic shock ICD Code: A41.9 - Sepsis, unspecified organism; R65.21 - Severe sepsis with septic shock Status: Acute (2) Acute respiratory failure ICD Code: J96.00 - Acute respiratory failure, unspecified whether with hypoxia or hypercapnia Status: Acute (3) Thrombophlebitis arm ICD Code: I80.8 - Phlebitis and thrombophlebitis of other sites (4) Aspiration pneumonia ICD Code: J69.0 - Pneumonitis due to inhalation of food and vomit Status: Acute (5) Atelectasis of left lung ICD Code: J98.11 - Atelectasis Status: Acute (6) Quadriparesis ICD Code: G82.50 - Quadriplegia, unspecified Status: Acute (7) DVT (deep venous thrombosis) ICD Code: I82.409 - Acute embolism and thrombosis of unspecified deep veins of unspecified lower extremity (8) Altered mental status ICD Code: R41.82 - Altered mental status, unspecified Status: Acute (9) CKD (chronic kidney disease) stage 3, GFR 30-59 ml/min ICD Code: N18.3 - Chronic kidney disease, stage 3 (moderate) Status: Chronic (10) Acute renal failure ICD Code: N17.9 - Acute kidney failure, unspecified Status: Acute (11) Diabetes mellitus ICD Code: E11.9 - Type 2 diabetes mellitus without complications Status: Chronic (12) Distal end of ulna fracture, closed ICD Code: S52.609A - Unspecified fracture of lower end of unspecified ulna, initial encounter for closed fracture Status: Acute (13) Gout ICD Code: M10.9 - Gout, unspecified Status: Chronic Assessment and Plan Assessment: NEURO/PSYCH: Acute metabolic encephalopathy- persistent Quadriparesis secondary to suspected transverse myelitis Recurrent falls On no sedation. Monitor neuro status. Suspected transverse myelitis. Received methylprednisolone 250 mg IV every 6 hours 01/27-02/02, started back on hydrocortisone 02/21/17, initially tapering to 50 mg IV every 8 hours starting received 1 dose at 2100 prior to becoming hypotensive. weaning hydrocortisone taper and stopped 03/09. Resumed hydrocortisone 50mg IV Q6hrly on 03/14 as patient became hypotensive following intubation on 03/13 requiring levophed. Continue Cortef 10mg Q12 LP 01/26 and 02/01. CSF culture negative 01/26, 02/01 Oligoclonal bands negative. CSF/serum IgG index is not elevated. VDRL nonreactive. Cryptococcal antigen negative. Brain MRI 01/23 no acute stroke. Few scattered lacunar infarcts of the brainstem. Moderate chronic white matter changes. MRI cervical/thoracic spine- mild spinal stenosis C3/C4 to C6/C7. No cord compression. RPR negative Neurology has been following, Dr. Crenshaw. Repeat CT brain 02/10 - negative Continue PT/OT Continue oxycodone 10 mg every 4 hours scheduled RESP: Acute hypoxemic respiratory failure Healthcare associated pneumonia/Aspiration Pneumonia S/P Right-sided chest tube 02/28 Continue with vent support keep sat >92% Bronchodilators, pulm toilet, trach care s/p perc tracheostomy 03/14. Pulmonology following Dr. Estrada - 04/13 CT guided thoracentesis scheduled emergently as discussed with Dr. Estrada - 600cc removed (right) 04/14-tracheostomy up sized to 8.[address] [place] [address] technician Dr. Estrada at bedside CV: Systolic heart failure likely chronic with ejection fraction 20-25% Hyperlipidemia History of hypertension Mild TR Sinus tachycardia Elevated troponin likely type II demand ischemia Monitor HR and BP keep MAP>65mmHg Atorvastatin 10 mg by mouth daily for dyslipidemia. 2-D echocardiogram 01/11 revealed EF 20-25%. Mild TR. Pulmonary arterial pressures were normal around 20 GI: Large right retroperitoneal hematoma Erosive esophagitis Adematous/hyperplastic colon polyps Severe acute protein calorie malnutrition Nausea/vomiting - resolved. Diarrhea Gastritis Diverticulosis Internal and external hemorrhoids Hiatal hernia Elevated lipase Change tube feeds-Nepro with goal rate 40ml/hr 02/27 CT chest/abdomen and pelvis - 9.4 x 7.5 renal and 16 x 12 cm right psoas muscle hematoma. Fluid around liver and spleen. Right-sided nephrolithiasis CTA abdomen 02/28 - possible blushing around iliac/lumbar vessels Discussed with IR. s/p attempted embolization CT abdomen and pelvis 02/10 atrophic left kidney. Bilateral inguinal hernias fat- containing. Nonobstructing 12 mm right kidney stone repeat CT abd/pelvis did not show evidence of obstruction. patient clinically has been having diarrhea (c. diff negative 02/19). also with nausea/vomiting of unclear etiology. EGD/Colonoscopy-02/22/17 showed gastritis esophagitis, hiatal hernia, diverticulosis and multiple polyps in descending colon and sigmoid which were snared biopsied. Biopsy pending Status post PEG tube placement Lansoprazole 30 mg twice a day for GI prophylaxis FEN/RENAL: Acute kidney injury in the setting of Chronic kidney disease stage 3-4 History of uric acid kidney stones with prior stent BPH Nonfunctioning left kidney Monitor renal function, electrolytes replacement as needed Cr: 2.05 from 1.85. d/c free water. Repeat BMP RIOS/SPEP negative. 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 Recommended nephrostomy tube if obstruction Nephrology consulted, off hemodialysis. Making urine. ICU electrolyte replacement protocol Last IHD was 03/22 ID: Septic shock- resolved. Abscess and Suppurative thrombophlebitis left upper extremity MSSA bacteremia Klebsiella UTI ESBL positive Acute aspiration pneumonia/HCAP 04/27 Sputum cx: Pseudomonas, Urine cx: Yeast, BC: 05/24 bottles: GPC likely contaminant Previously treated with Bactrim, ertapenem, intermittent vancomycin, nafcillin Blood cultures 2, UA ESBL positive Klebsiella UTI Sputum 03/14 - Pseudomonas came back resistant to imipenem, Stenotrophomonas maltophilia Antibiotics per ID. on Tobra nebs, PO Vanco and Diflucan, Zerbaxa, ID is following Reconsult wound service. C-diff PCR negative HEME: Acute blood loss anemia DVT, bilateral posterior tibial vein, IVC filter Septic thrombophlebitis with occlusive thrombus mid cephalic and basilic vein side Monitor CBC s/p transfusion 2units PRBC ( 04/26) Received 10 PRBC, 14 FFP, 2 platelets, 1 cryo-02/28 Received 3 units PRBCs Ultrasound 01/23/17 - Bilateral lower extremity with occlusive posterior tibial vein DVTs. Heparin was initially started for DVT but was placed on hold due to LP with suspected traumatic tap. Currently holding full anticoagulation with enoxaparin 100 mg IV twice a day due to anemia as of 02/26 IVC filter was placed 01/25/17. Ultrasound LUE 02/10 occlusive thrombus mid cephalic vein, basilic vein.s. Transfuse 3 units PRBCs 02/27 Transfuse 2 units PRBCs 03/01. Transfused 1 unit PRBCs on 03/14 ENDO: Diabetes mellitus Hypoglycemia History of prior adrenal insufficiency with shock Gout Accu-Cheks to maintain euglycemia Novulin R every 4 hours. Low Regimen MSK: Right distal ulna fracture. Recommended nonoperative management. PROPH: Lansoprazole 30 mg twice a day twice a day for stress ulcer prophylaxis. Has IVC filter. Therapeutic enoxaparin was placed on hold for retroperitoneal hematoma ACCESS: Right subclavian CVP placed 04/27 Dispo: Discussed with CARD CUTTER HELPER at bedside Level 3 Problem Qualifiers (1) Aspiration pneumonia: (2) DVT (deep venous thrombosis): Qualified Codes: I82.443 - Acute embolism and thrombosis of tibial vein, bilateral (3) Acute renal failure: Qualified Codes: N17.9 - Acute kidney failure, unspecified (4) Diabetes mellitus: (5) Gout: Hood Madera MD Apr 30, 2017 08:25
[2017-04-30] MEDS: CHOLESTYRAMINE 4 GM PACKET G-TUBE SCH ×2 (08:46→20:37)
[2017-04-30] MEDS: TAMSULOSIN HCL 0.4 MG CAP PO SCH ×2 (08:47→20:37)
[2017-04-30] MEDS: LANSOPRAZOLE SOLUTAB 30 MG TAB NG SCH ×2 (08:47→20:37)
[2017-04-30] MEDS: FLUCONAZOLE 200 MG TAB PO SCH (08:47)
[2017-04-30] MEDS: QUEtiapine FUMARATE 25 MG TAB PO SCH (08:47)
[2017-04-30] MEDS: LACTOBACILLUS ACIDOPHILUS TAB PO SCH ×3 (08:47→17:45)
[2017-04-30] MEDS: COLLAGENASE OINT 30 GM TUBE TOPICAL SCH (08:48)
[2017-04-30] MEDS: SODIUM CHLORIDE 0.9% FLUSH 10 ML FLUSH IV FLUSH SCH ×3 (08:48→20:37)
[2017-04-30] MEDS: CHLORHEXIDINE 0.12% (ORAL KIT) 15 ML CUP MT SCH ×2 (08:49→20:37)
[2017-04-30 09:48] LABS: BICARBONATE 25.4 MEQ/L (21.0-32.0); POTASSIUM 5.3 MEQ/L (3.5-5.1)
--- NOTE | 2017-04-30 10:31 | HHI.IDPN ---
Subjective Subjective Remarks Patient is a 62-year-old male, admitted to the hospital for evaluation of pain in his right wrist. He gave a history of falling about a week ago and apparently had immediate pain in the right wrist. He did not seek any medical attention initially because reportedly he was very busy. He eventually presented, and he was found to have a distal ulnar fracture on plain films. He also had some redness and swelling. Orthopedics saw the patient, and was being treated conservatively with the splint. During this hospitalization also he started complaining of generalized weakness but more so in his lower extremity than his upper extremity. He had swelling in both lower extremity which revealed evidence of DVT in the posterior tibial veins. Neurology had seen the patient and he underwent lumbar puncture which apparently was traumatic. Patient was therefore not given anticoagulation because of the traumatic LP, and he underwent placement of an IVC filter on January 25. Patient had another lumbar puncture on February 01. He was felt to have transverse myelitis, and he was given high-dose IV Solu-Medrol from January 27 to February 02. There was apparently some improvement in his weakness. The imaging studies done for his weakness showed some spinal stenosis, and neurosurgery was consult that and recommended that there was no surgical intervention to be done. Patient has been stabilizing, but last night apparently deteriorated, and he ended up getting intubated, and had significant hypotension requiring pressors. There was also an ultrasound done of his left upper extremity which showed DVT, and there was evidence of superior 2 thrombophlebitis. Vascular surgery was consult to it and he had IND on his left upper extremity. Patient has had some fevers since yesterday. 2 blood cultures were done yesterday and they're now reported as growing gram-positive cocci in [place] in clusters. He is currently sedated and intubated. He is on Levophed and vasopressin. A central line was placed as well as a femoral a line. He apparently had an IV in his left upper extremity and that was removed yesterday. Patient also has history of chronic kidney disease, and nephrology evaluated the patient. He was just being monitored for his renal insufficiency. Reconsulted 04/12 for low grade fever, leucocytosis, worsening CXR concern for new pneumonia. Notes reviewed Had fevers this weekend, temps better On the vent Has thick, moderate, baker secretions needing frequent suctioning. Sputum with MDR PSAE UC with yeast One BC with GPC Opens eyes spontaneously but appears lethargic and not following commands. WBC elevated at 25 CXR reviewed with left base effusion and left side haziness. C diff negative Antibiotics Current Medications Diflucan Oral Vanco Tobra nebs Zerbaxa Medications (Trade) Dose Ordered Sig/Rosalia Route Start Time Stop Time Status Last Admin (NS Flush) 2 ml UNSCH PRN IV FLUSH 01/23/17 00:30 04/27/17 09:22 (NS Flush) 2 ml BID IV FLUSH 01/23/17 09:00 04/30/17 08:48 (Zofran Inj) 4 mg Q6H PRN IVP 01/23/17 00:30 02/26/17 17:23 (Narcan Inj) 0.4 mg UNSCH PRN IV 01/23/17 00:30 (Edna-Colace) 1 tab BID PO 01/23/17 09:00 Future Hold 02/24/17 20:31 (Dulcolax Supp) 10 mg DAILY PRN RECTAL 01/23/17 00:30 (Lipitor) 10 mg HS PO 01/24/17 21:00 Future hold 04/29/17 20:15 (Glucagon Inj) 1 mg UNSCH PRN OTHER 02/11/17 05:45 02/18/17 18:53 (Flomax) 0.4 mg Q12HR PO 02/17/17 15:00 Future hold 04/30/17 08:47 (Lovenox Inj) 100 mg Q12H SQ 02/18/17 12:00 Future Hold 02/26/17 16:20 (Lactinex) 1 tab TID PO 02/19/17 13:00 04/30/17 08:47 (D50w (Vial) Inj) 25 ml UNSCH PRN IV PUSH 02/20/17 12:45 03/27/17 13:20 (Questran Light Pkt) 4 gm Q12HR PO 02/25/17 21:00 Future Hold 02/27/17 10:32 (Aldactone) 25 mg DAILY PO 02/27/17 09:00 Future Hold (Peridex 0.12% Liq) 15 ml BID@08,20 MT 02/28/17 08:00 04/30/17 08:49 (NS Flush) UNSCH PRN IV FLUSH 03/01/17 13:00 (Heparin Inj) UNSCH PRN IV FLUSH 03/01/17 13:00 (NS Flush) DAILY IV FLUSH 03/04/17 09:00 04/30/17 08:48 (NS Flush) UNSCH PRN IV FLUSH 03/03/17 18:45 (Prevacid Odt) 30 mg BID NG 03/07/17 21:00 04/30/17 08:47 (Tylenol 650 Mg/ 20 ml Liq) 650 mg Q6H PRN PO 03/09/17 10:15 04/28/17 20:04 (Tenormin) 25 mg Q12HR PO 03/12/17 10:00 Future Hold 04/18/17 10:09 (Epogen Inj) 10,000 units UNSCH PRN IV PUSH 03/17/17 11:30 03/22/17 10:52 (Nitroglycerin 2% Oint) 2 inch Q6H PRN TOPICAL 03/23/17 14:00 03/29/17 01:20 (Norvasc) 10 mg DAILY PO 03/28/17 09:00 Future Hold 04/19/17 08:16 (Roxicodone Intensol Liq) 5 mg Q4H PO 04/01/17 18:00 04/30/17 08:47 (NovoLOG INJ) 5 units TIDAC SQ 04/03/17 17:00 Future Hold 04/10/17 08:00 (Xanax) 0.125 mg Q6H PRN PO 04/03/17 22:30 04/25/17 14:27 (Pill Splitter) 1 ea UNSCH PRN OTHER 04/03/17 22:45 (Levsin Liq) 0.125 mg Q4H PRN G-TUBE 04/06/17 15:00 04/12/17 10:09 (Questran 4 Gm Pkt) 4 gm Q12HR G-TUBE 04/08/17 21:00 04/30/17 08:46 (SEROquel) 25 mg DAILY PO 04/09/17 09:00 04/30/17 08:47 (Santyl Oint) 1 applic DAILY TOPICAL 04/10/17 09:00 04/30/17 08:48 (Cortef) 10 mg Q12H PO 04/10/17 18:00 04/30/17 05:29 (Lasix Inj) 40 mg BID@09,18 IV PUSH 04/12/17 18:00 Future Hold 04/19/17 17:15 (Duoneb Neb) 1 ampule Q2HR NEB PRN NEB 04/12/17 17:00 04/30/17 08:14 (Tobramycin Neb) 80 mg Q12HR NEB NEB 04/16/17 09:15 04/30/17 23:00 04/30/17 08:14 (VANCOMYCIN for oral use only) 125 mg Q6H PO 04/21/17 21:00 05/01/17 23:00 04/30/17 08:47 (Lopressor Inj) 2.5 mg Q6H PRN IV PUSH 04/23/17 01:15 04/23/17 09:36 (NovoLOG SUPPLEMENTAL SCALE) 1 Q6H SQ 04/27/17 18:00 04/29/17 22:57 (Diflucan) 200 mg DAILY PO 04/29/17 14:00 04/30/17 08:47 Ceftolozane/ Tazobactam 1500 mg/Sodium Chloride 100 ml @ 100 mls/hr Q8H IV 04/29/17 14:00 04/30/17 05:29 Lines Central line - 04/27 Past Medical History Reviewed Allergies: Coded Allergies: levofloxacin (Verified Allergy, Severe, 01/22/17) Objective . Vital Signs Date Time Temp Pulse Resp B/P (MAP) Pulse Ox O2 Delivery O2 Flow Rate FiO2 04/30/17 08:14 92 40 04/30/17 06:00 104 04/30/17 04:00 105 04/30/17 04:00 99.2 105 24 100/61 (74) 98 04/30/17 04:00 40 04/30/17 03:48 98 40 04/30/17 02:00 103 04/30/17 00:34 100 40 04/30/17 00:00 99.2 103 25 92/53 (66) 96 04/30/17 00:00 105 04/30/17 00:00 40 04/29/17 22:00 104 04/29/17 20:55 100 40 04/29/17 20:00 40 04/29/17 20:00 99.2 109 27 97/61 (73) 98 04/29/17 20:00 109 04/29/17 19:00 98 Mechanical Ventilator 40 04/29/17 18:00 117 04/29/17 16:30 115 22 115/70 (85) 98 04/29/17 16:00 99.3 114 24 108/68 (81) 98 04/29/17 16:00 40 04/29/17 16:00 114 04/29/17 15:30 117 24 120/68 (85) 98 04/29/17 15:00 116 24 109/65 (80) 100 04/29/17 14:40 98 40 04/29/17 14:30 114 25 112/62 (79) 98 04/29/17 14:00 120 04/29/17 14:00 120 23 126/68 (87) 99 04/29/17 13:30 112 24 100/59 (73) 100 04/29/17 13:00 114 22 109/66 (80) 100 04/29/17 12:00 98.7 114 20 102/64 (77) 100 04/29/17 12:00 40 04/29/17 12:00 114 04/29/17 11:30 114 21 106/62 (77) 100 04/29/17 11:00 113 23 104/65 (78) 100 04/29/17 10:30 115 22 113/63 (80) 100 . Laboratory Tests Test 04/29/17 04:04 04/30/17 03:50 White Blood Count 20.4 TH/MM3 25.1 TH/MM3 Red Blood Count 2.96 MIL/MM3 3.13 MIL/MM3 Hemoglobin 8.4 GM/DL 8.5 GM/DL Hematocrit 25.5 % 27.1 % Mean Corpuscular Volume 86.2 FL 86.7 FL Mean Corpuscular Hemoglobin 28.2 PG 27.2 PG Mean Corpuscular Hemoglobin Concent 32.7 % 31.4 % Red Cell Distribution Width 17.2 % 17.6 % Platelet Count 315 TH/MM3 306 TH/MM3 Mean Platelet Volume 7.8 FL 7.4 FL Neutrophils (%) (Auto) 69.9 % 70.7 % Lymphocytes (%) (Auto) 7.6 % 7.1 % Monocytes (%) (Auto) 11.9 % 9.5 % Eosinophils (%) (Auto) 10.2 % 12.5 % Basophils (%) (Auto) 0.4 % 0.2 % Neutrophils # (Auto) 14.3 TH/MM3 17.8 TH/MM3 Lymphocytes # (Auto) 1.6 TH/MM3 1.8 TH/MM3 Monocytes # (Auto) 2.4 TH/MM3 2.4 TH/MM3 Eosinophils # (Auto) 2.1 TH/MM3 3.2 TH/MM3 Basophils # (Auto) 0.1 TH/MM3 0.1 TH/MM3 CBC Comment AUTO DIFF AUTO DIFF Differential Total Cells Counted 100 100 Neutrophils % (Manual) 60 % 63 % Band Neutrophils % 7 % 1 % Lymphocytes % 4 % 8 % Monocytes % 8 % 4 % Eosinophils % 11 % 21 % Neutrophils # (Manual) 15.7 TH/MM3 16.8 TH/MM3 Metamyelocytes 7 % Myelocytes 3 % 3 % Differential Comment FINAL DIFF MANUAL FINAL DIFF MANUAL Platelet Estimate NORMAL NORMAL Platelet Morphology Comment NORMAL NORMAL Laboratory Tests Test 04/28/17 13:25 04/29/17 04:04 04/29/17 18:00 04/30/17 03:50 Potassium Level 5.5 MEQ/L 5.3 MEQ/L 5.2 MEQ/L 4.4 MEQ/L Blood Urea Nitrogen 56 MG/DL 62 MG/DL Creatinine 1.85 MG/DL 2.05 MG/DL Random Glucose 141 MG/DL 116 MG/DL Calcium Level 9.5 MG/DL 9.3 MG/DL Sodium Level 144 MEQ/L 124 MEQ/L Chloride Level 112 MEQ/L 92 MEQ/L Carbon Dioxide Level 25.4 MEQ/L 25.6 MEQ/L Anion Gap 7 MEQ/L 6 MEQ/L Estimat Glomerular Filtration Rate 37 ML/MIN 33 ML/MIN Test 04/30/17 09:00 Blood Urea Nitrogen 65 MG/DL Creatinine 2.07 MG/DL Random Glucose 163 MG/DL Calcium Level 9.6 MG/DL Sodium Level 142 MEQ/L Potassium Level 5.3 MEQ/L Chloride Level 111 MEQ/L Carbon Dioxide Level 25.4 MEQ/L Anion Gap 6 MEQ/L Estimat Glomerular Filtration Rate 33 ML/MIN Microbiology Date/Time Source Procedure Growth Status 04/29/17 14:02 Blood Peripheral Aerobic Blood Culture Pending Received 04/29/17 14:02 Blood Peripheral Anaerobic Blood Culture Pending Received 04/29/17 11:50 Blood Line Aerobic Blood Culture Pending Received 04/29/17 11:50 Blood Line Anaerobic Blood Culture Pending Received 04/27/17 14:07 Blood Peripheral Aerobic Blood Culture - Preliminary NO GROWTH IN 2 DAYS Resulted 04/27/17 14:07 Anaerobic Blood Culture - Preliminary Gram Positive Cocci Resulted 04/27/17 14:00 Blood Peripheral Aerobic Blood Culture - Preliminary NO GROWTH IN 2 DAYS Resulted 04/27/17 14:00 Blood Peripheral Anaerobic Blood Culture - Preliminary NO GROWTH IN 2 DAYS Resulted 04/27/17 11:00 Sputum Endotracheal Gram Stain - Final Complete 04/27/17 11:00 Sputum Culture - Final Pseudomonas Aeruginosa Complete 04/27/17 14:30 Urine Clean Catch Urine Culture - Preliminary Yeast Species Resulted Imaging Chest X-Ray 04/27/17 0600 Signed Impressions: Service Date/Time: Thursday, April 27, 2017 05:19 - CONCLUSION: Improved aeration. Cornel Harrison MD Chest X-Ray 04/26/17 0000 Signed Impressions: Service Date/Time: April 23:35 - CONCLUSION: Right central venous catheter placement. Worsening appearance of the chest. Cornel Harrison MD Chest X-Ray 04/17/17 0000 Signed Impressions: Service Date/Time: Monday, April 17, 2017 03:40 - CONCLUSION: Mild left effusion and possible accompanying atelectasis or consolidation at the left base Angelo Manzo MD Thoracentesis 04/13/17 1054 Signed Impressions: Service Date/Time: Thursday, April 13, 2017 15:26 - CONCLUSION: Uncomplicated CT-guided right thoracentesis. Candido Mendoza Jr., MD Chest CT 04/12/17 1558 Signed Impressions: Service Date/Time: March 17:51 - CONCLUSION: 1. Slight increase in size of bilateral effusions and basilar atelectasis, left greater than right compared with February 27. Tracheostomy in good position. Trace Holloway MD Renal Ultrasound 04/02/17 0000 Signed Impressions: Service Date/Time: Sunday, April 02, 2017 16:59 - CONCLUSION: Limited exam with the left kidney being unable to be evaluated in the bladder not distended. There do appear to be multiple shadowing stones at the right kidney without hydronephrosis. Angelo Manzo MD Wrist X-Ray 03/27/17 0000 Signed Impressions: Service Date/Time: Monday, March 27, 2017 13:21 - CONCLUSION: 1. No acute fracture is identified. A portion of the previously documented distal ulna fracture remains visualized. 2. 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 Angelo Allen MD Aortography 02/28/17 0000 Signed Impressions: Service Date/Time: Tuesday, February 28, 2017 08:01 - CONCLUSION: 1. Active hemorrhage from distal right lateral sacral and iliolumbar branches successfully coil and Gelfoam embolized, as above. Juan Bhakta MD Abdomen/Pelvis CT 02/28/17 0000 Signed Impressions: Service Date/Time: Tuesday, February 28, 2017 06:51 - CONCLUSION: 1. The right retroperitoneal hematoma has increased in size, as above. There are 2 serpiginous arterially enhancing structures visualized, one in the right psoas muscle and another extending into the hematoma at the right iliac fossa. These could represent sites of continued active bleeding. 2. Stable moderate size left and small right pleural effusion with associated compressive atelectasis. 3. Stable small volume of free fluid in the abdomen and pelvis. There is also anasarca. The findings concerning the retroperitoneal hematoma were discussed with Dr. Aguiar via telephone at approximately 7: 10 AM on 02/28/2017. Angelo Allen MD Abdomen X-Ray 02/26/17 0000 Signed Impressions: Service Date/Time: Sunday, February 26, 2017 14:52 - CONCLUSION: 1. Nonobstructive bowel gas pattern. Juan Bhakta MD Upper Extremity Ultrasound 02/10/17 0000 Signed Impressions: Service Date/Time: Friday, February 10, 2017 18:46 - CONCLUSION: Occlusive thrombus in the cephalic and basilic veins. Benjamin Person MD Lung Scan- Nuclear Medicine 02/10/17 0000 Signed Impressions: Service Date/Time: Friday, February 10, 2017 22:17 - CONCLUSION: Low probability pulmonary embolism. Candido Patton MD Head CT 02/10/17 0000 Signed Impressions: Service Date/Time: Friday, February 10, 2017 23:51 - CONCLUSION: Negative noncontrast CT brain. Candido Patton MD Lumbar Puncture Fluoroscopy 9/14/17 0000 Signed Impressions: Service Date/Time: January 09:35 - CONCLUSION: Uncomplicated fluoroscopically guided lumbar puncture. CSF was clear. Nabeel Peralta MD Head Magnetic Resonance Angiography 01/27/17 Signed Impressions: Service Date/Time: Friday, January 27, 2017 10:33 - CONCLUSION: No intracranial vascular abnormality is identified. There is no aneurysm visualized. Angelo Allen MD IVC Filter Placement X-Ray 01/25/17 Signed Impressions: Service Date/Time: January 10:29 - CONCLUSION: Uncomplicated inferior vena cava filter placement as above. Yung Fowler MD Thoracic Spine MRI 01/24/17 Signed Impressions: Service Date/Time: Tuesday, January 24, 2017 22:29 - CONCLUSION: 1. Mild degenerative spondylosis most prominently at T11-L1 with slight effacement of the anterior thecal sac and left lateral recess. No significant neural foraminal stenosis. 2. No acute fracture. Juan Bhakta MD Lumbar Spine MRI 01/23/17 Signed Impressions: Service Date/Time: Monday, January 23, 2017 17:01 - CONCLUSION: 1. At L4-5 is a broad-based disc protrusion with severe central canal and lateral recess stenosis and flattening of the exiting right L4 nerve root. 2. L5-S1 there is a disc protrusion and moderate stenosis with flattening of the exiting L5 nerve roots bilaterally. 3. At L3-4 there is a moderate to severe central stenosis and lateral recess stenosis with mild foraminal stenosis. 4. No acute fracture or spondylolisthesis. Trace Holloway MD Lower Extremity Ultrasound 01/23/17 Signed Impressions: Service Date/Time: Monday, January 23, 2017 09:53 - CONCLUSION: Bilateral focal lower extremity DVT involving the posterior tibial veins. Angelo Garrido MD Cervical Spine MRI 01/23/17 Signed Impressions: Service Date/Time: Monday, January 23, 2017 17:01 - CONCLUSION: 1. Multilevel cervical spine degenerative changes as above. 2. Mild degrees of spinal stenosis at C3/C4-C6/C7. No cord compression or cord signal abnormality. 3. Age indeterminate left paracentral/foraminal disc protrusion at C6/C7. 4. Multilevel foraminal stenosis, most severe on the left at C6/C7. Please see individual levels above. 5. No fracture or subluxation of the cervical spine. Angelo Garrido MD Brain MRI 01/23/17 0000 Signed Impressions: Service Date/Time: Monday, January 23, 2017 17:01 - CONCLUSION: 1. No acute stroke or other acute intracranial abnormality demonstrated. 2. Moderate severity chronic white matter changes, nonspecific but most likely related to chronic small vessel disease. 3. Few scattered tiny lacunar infarcts of the brainstem. 4. Given the findings are not entirely specific, clinical evaluation for possible multiple sclerosis recommended. Angelo Garrido MD Knee X-Ray 01/22/[id number] Signed Impressions: Service Date/Time: Sunday, January 22, 2017 21:17 - CONCLUSION: 1. Evidence of moderate to large joint effusion. 2. No acute fracture or malalignment. 3. Mild 3 compartment osteoarthritic change. Benjamin Person MD Hip and Pelvis X-Ray [id number]/22/[id number] Signed Impressions: Service Date/Time: Sunday, January 22, 2017 21:10 - CONCLUSION: 1. Mild to moderate degenerative change of both hips with no acute fracture or malalignment. There is flattening and remodeling of the right humeral head. Benjamin Person MD Physical Exam GENERAL: Sedated on the vent, NAD SKIN: Cool and dry. No generalized rash. Edematous in extremities. EYES: [place] conjunctiva. No petechia or hemorrhage. EARS, NOSE AND THROAT: Nose without bleeding or purulent nasal discharge. Dry oral mucosa NECK: Trach site ok. CARDIOVASCULAR: Regular rate and rhythm. Soft heart sounds. No murmurs RESPIRATORY: Coarse BS bilaterally, decreased at bases. ABDOMEN: Soft, not tender, distended, PEG site ok. No guarding rectal tube in place with small amount of liquid stool EXTREMITIES: No clubbing, cyanosis. Edema +++. Dressing on R leg wound with lots of drainage. Generalized anasarca. NEUROLOGICAL: sedated PSYCHIATRIC: unable to assess LINE: Lines with no evidence of infection Assessment & Plan Remarks IMPRESSION Recurrent respiratory failure, ?plugging, PNA - last CXR better New Sepsis (fever and leucocytosis), temps up again x 1, and WBC still elevated Aspiration Pneumonia in health care setting. Mucus plugs with atelectasis. Leucocytosis, persistent, but decreasing ESBL in urine in recent past. 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 PNA, ?plugging/atelctasis - MDR, I to Zerbaxa, has been tolerating T-piece - likely effusion adding to his respiratory problems, on top of his plugging /secretions Large R retroperitoneal bleed, S/P multiple transfusions and S/P coiling of bleeders Anemia, due to bleed, retroperitoneal MSSA sepsis, due to suppurative thrombophlebitis LUE, S/P I and D and excision of portion of cephalic vein - S/P Rx Respiratory failure, has had several intubations - reintubated again 02/28, extubated 03/11 - reintubated again - S/P trach 03/14 Rx 7 days high dose solumedrol for transverse myelitis Wu LE DVT has IVC filter placed 01/25 - ?hypercoagulable state Chronic kidney disease, worsening creatinine - shock and compression of ureter by hematoma Known DM, HTN Diarrhea, C.diff negative RECOMMENDATION Continue Zerbaxa IV (ASP: recently treated for MDR PSAE and now with GNR in sputum and s.o new infection) - spoke with micro, asked them to do sensitivity Continue Tobra nebs, will give 14 days Continue Diflucan with higher dose as patient has C.glabrata which needs higher urinary levels to be effectively treated. Sloan changed on 04/24/17. CL new from 04/27/2017. - Less likely to be CLABSI. Suspect GPC is a contaminant. Await ID and repeat BCX results. Will hold off on Vanco IV for now Cr elevated would like to avoid nephrotoxic agents. - If clinical change overnight damion Mixon to start GP coverage Dapto or Zyvox IV. Continue oral Vanco, end date ordered. Repeat Cdiff PCR ordered. Follow C/S Follow temps Follow CBC Monitor progress Patient back on the vent Irene Edwards MD Apr 30, 2017 10:31
[2017-04-30] MEDS ORDERED: SODIUM POLYSTYRENE SULFONATE SUSP 15 GM/60 ML CUP PO ONE (11:10)
[2017-04-30] MEDS: ACETAMINOPHEN 650 MG/20.3 ML UDC PO PRN (12:01)
--- NOTE | 2017-04-30 16:37 | HHI.NPPN ---
Subjective History of Present Illness 61-year-old with history of urinary stone patient again got unstable has recurrent bouts of ICU admission requiring ventilation and respiratory care started having scrotal swelling and acute renal failure again, he had mild hyperkalemia and this was treated I have been reconsulted again Additional Remarks Patient had trach on trach o2, not in distress. Review of Systems General Constitutional: Fatigue Objective Data Data Vital Signs Date Time Temp Pulse Resp B/P (MAP) Pulse Ox O2 Delivery O2 Flow Rate FiO2 04/30/17 15:14 96 50 04/30/17 12:00 40 04/30/17 12:00 98.3 100 24 103/63 (76) 98 04/30/17 12:00 100 04/30/17 11:07 100 50 04/30/17 10:00 101 04/30/17 08:14 92 40 04/30/17 08:00 40 04/30/17 08:00 98.5 109 24 130/61 (84) 98 04/30/17 08:00 109 04/30/17 07:00 98 Mechanical Ventilator 40 04/30/17 06:00 104 04/30/17 04:00 105 04/30/17 04:00 99.2 105 24 100/61 (74) 98 04/30/17 04:00 40 04/30/17 03:48 98 40 04/30/17 02:00 103 04/30/17 00:34 100 40 04/30/17 00:00 99.2 103 25 92/53 (66) 96 04/30/17 00:00 105 04/30/17 00:00 40 04/29/17 22:00 104 04/29/17 20:55 100 40 04/29/17 20:00 40 04/29/17 20:00 99.2 109 27 97/61 (73) 98 04/29/17 20:00 109 04/29/17 19:00 98 Mechanical Ventilator 40 04/29/17 18:00 117 -: 04/30/17 0350 04/30/17 0900 Physical Exam General Appearance: Pale Eyes Eye Exam: Pupils Equal Throat Throat Exam: Oral Mucosa [place] & Moist Neck Neck Exam: Neck Supple Pulmonary Resp Exam: Clear Bilaterally Cardiology CV Exam: Normal Sinus Rhythm Gastrointestinal/Abdomen GI Exam: Non-Tender, Distended Genitourinary Exam: Flank Non-Tender (scrotal edema) Extremeties Extremities Exam: Moderate Edema, Pitting Edema Neurologic Neuro Exam: Awake Assessment/Plan Problem List: (1) Acute renal failure ICD Codes: N17.9 - Acute kidney failure, unspecified Status: Acute Plan: Patient with pneumonia as, sepsis, acute renal failure Had pneumonia, developed sepsis with ARF again creatinine declined slightly post hydration he also had retroperitoneal bleed Pseudomonas in sputum, with colonized airway 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 Patient had been on dialysis earlier in hospitalization. He again has prerenal azotemia and respiratory failure, we will try albumin with Lasix again Start Lasix 20 mg IV every 12 follow kidney functions His hyperkalemia was treated with Kayexalate Follow BMP He has multiple infections and pneumonia Pseudomonas colonization Continue to monitor (2) CKD (chronic kidney disease) stage 3, GFR 30-59 ml/min ICD Codes: N18.3 - Chronic kidney disease, stage 3 (moderate) Status: Chronic Plan: Ultrasound revealed chronic kidney disease there is no kidney stones (3) Diabetes ICD Codes: E11.9 - Type 2 diabetes mellitus without complications Plan: Continue to monitor (4) Distal end of ulna fracture, closed ICD Codes: S52.609A - Unspecified fracture of lower end of unspecified ulna, initial encounter for closed fracture Status: Acute Plan: Orthopedic is following Problem Qualifiers (1) Acute renal failure: Qualified Codes: N17.9 - Acute kidney failure, unspecified Laura Liao MD Apr 30, 2017 16:37
[2017-04-30] MEDS: ALBUMIN 25% INJ 100 ML IV SCH (17:46)
[2017-04-30] MEDS: FUROSEMIDE 20 MG/2 ML VIAL IV PUSH SCH (17:46)
[2017-04-30] MEDS: ATORVASTATIN 10 MG TAB PO SCH (20:41)
[2017-05-01] VITALS (18 sets, daily range): BP systolic 108–130; BP diastolic 59–73; PULSE 100–112; RESP 17–26; TEMP 98–100.1; O2SAT 95–100
[2017-05-01] MEDS: VANCOMYCIN 500 MG VIAL (FOR ORAL USE ONLY) PO SCH ×4 (02:51→21:00)
[2017-05-01] MEDS: oxyCODONE HCL ORAL CONC 5 MG/0.25 ML SYRINGE PO SCH ×6 (02:51→21:01)
[2017-05-01] MEDS: ALBUMIN 25% INJ 100 ML IV SCH ×2 (02:52→17:27)
[2017-05-01] MEDS: CEFTOLOZANE-TAZOBACTAM INJ 1,500 MG in SODIUM CHLORIDE 0.9% INJ 100 ML IV SCH ×3 (05:34→21:00)
[2017-05-01] MEDS: FUROSEMIDE 20 MG/2 ML VIAL IV PUSH SCH ×2 (05:34→17:27)
[2017-05-01] MEDS: INSULIN ASPART SUPPLEMENTAL SCALE SQ SCH ×3 (05:36→17:26)
[2017-05-01 06:01] LABS: AUTOMATED NEUTROPHIL # 18.4 TH/MM3 (1.8-7.7); BASOPHIL # 0.1 TH/MM3 (0-0.2); BASOPHIL % 0.3 % (0.0-2.0); EOSINOPHIL # 2.6 TH/MM3 (0-0.4); EOSINOPHIL % 10.7 % (0.0-4.0); HEMATOCRIT 26.5 % (39.0-51.0); LYMPH % 7.6 % (9.0-44.0); LYMPHOCYTE # 1.9 TH/MM3 (1.0-4.8); MEAN CELL VOLUME 86.6 FL (80.0-100.0); MEAN CORPUSCULAR HEMOGLOBIN 27.2 PG (27.0-34.0); MEAN CORPUSCULAR HGB CONC 31.4 % (32.0-36.0); MONO % 6.9 % (0.0-8.0); NEUT % 74.5 % (16.0-70.0); PLATELET COUNT 269 TH/MM3 (150-450); RED BLOOD COUNT 3.06 MIL/MM3 (4.50-5.90); RED CELL DISTRIBUTION WIDTH 17.6 % (11.6-17.2); WHITE BLOOD COUNT 24.6 TH/MM3 (4.0-11.0)
[2017-05-01 06:05] LABS: HEMO FLAGS AUTO DIFF
[2017-05-01 06:28] LABS: BICARBONATE 24.4 MEQ/L (21.0-32.0); MAGNESIUM 1.8 MG/DL (1.5-2.5); POTASSIUM 4.8 MEQ/L (3.5-5.1)
[2017-05-01 07:50] LABS: BANDS 10 % (0-6); EOSINOPHILS 12 % (0-4); METAMYELOCYTES 6 % (0-1); MYELOCYTES 6 % (0-0); NEUTROPHIL # MANUAL DIFF 19.9 TH/MM3 (1.8-7.7); POLYS (SEG NEUTROPHILS) 59 % (16-70); WBC DIFF SAMPLE 100
[2017-05-01 07:52] LABS: PLATELET ESTIMATE SMEAR NORMAL (NORMAL); PLATELET MORPHOLOGY NORMAL (NORMAL); SCAN/DIFF FINAL DIFF MANUAL
[2017-05-01] MEDS: LACTOBACILLUS ACIDOPHILUS TAB PO SCH ×3 (07:53→17:26)
[2017-05-01] MEDS: QUEtiapine FUMARATE 25 MG TAB PO SCH (07:53)
[2017-05-01] MEDS: LANSOPRAZOLE SOLUTAB 30 MG TAB NG SCH ×2 (07:53→21:00)
[2017-05-01] MEDS: CHOLESTYRAMINE 4 GM PACKET G-TUBE SCH ×2 (07:53→21:00)
[2017-05-01] MEDS: FLUCONAZOLE 200 MG TAB PO SCH (07:53)
[2017-05-01] MEDS: SODIUM CHLORIDE 0.9% FLUSH 10 ML FLUSH IV FLUSH SCH ×3 (07:53→21:01)
[2017-05-01] MEDS: TAMSULOSIN HCL 0.4 MG CAP PO SCH ×2 (07:53→21:00)
[2017-05-01] MEDS: CHLORHEXIDINE 0.12% (ORAL KIT) 15 ML CUP MT SCH ×2 (07:54→20:59)
[2017-05-01] MEDS: COLLAGENASE OINT 30 GM TUBE TOPICAL SCH (07:54)
--- NOTE | 2017-05-01 09:35 | HHI.CCPN ---
Subjective Remarks/Hospital Course Date of admission: 01/22 Date of critical care medicine consult 02/10 due to acute hypoxemic respiratory failure requiring emergent intubation 62-year-old male with a past medical history of hypertension, hyperlipidemia, diabetes mellitus, gout, uric acid kidney stones, kidney disease of unknown stage who originally presented to [facility] emergency department on 01/22 after a fall in which he sustained a right distal ulna fracture. He had been experiencing a gradual primarily lower extremity weakness as well as upper extremity weakness that was progressive. Neurology consult was obtained. MRI revealed no acute stroke. He had multifocal white matter changes. Tiny lacunar infarcts of the brainstem. Lumbar MRI report states L4-L5 disc protrusion with cetnral canal stenosis. Dr. Blackwell evaluated and states no cord compression on MRI C/T spine and recommended nonoperative management. Symptoms were felt to be consistent with transverse myelitis and he underwent Solumedrol 250 mg IV q6 hours 01/27-02/02. He also was found to have occlusive thrombus in the bilateral posterior tibial veins. Heparin was being avoided because he had traumatic lumbar puncture on 01/26 and 02/01. IVC filter was placed 01/25. He was undergoing physical therapy, reportedly making some improvements with plan to eventually discharged home with his son (max assist standing, and bed to chair per PT note). Apparently he had some vomiting the evening of 02/09 and additional vomiting on 02/10. He had a fever 102.8 on 02/09. Last recorded bowel movement was 02/03. Tonight he had acute onset of severe hypoxemia and respiratory distress. [facility] called and he was brought emergently to [facility] where his sats were 64% on 100% nonrebreather with mean arterial pressure 44. He was emergently intubated, CVL and art line placed. He is in septic shock. SUBJ: 02/11: Patient remains intubated sedated, critically ill. FiO2 reduced to 80% after increasing PEEP to 12. In severe septic shock Levophed at 16 mcg/m, vasopressin at 0.04 international units. D/W vascular surgery Dr. Enciso. He performed bedside Left upper extremity incision and debridement and excision of septic cephalic vein. 02/12: Remains intubated sedated profoundly septic, in shock on vasopressin and 7 mcg/min Levophed. FiO2 has improved to 45%, WBC count remains elevated with 20 ,000 white count significant left shift. Slight improvement in creatinine 2.9 urine output 750 ml 24 hours. 2-D echo shows LV ejection fraction 20-25%, no vegetation reported. Blood cultures 4 staph aureus. Wound culture pending 02/13: Remains critically ill but stable to improving. WBC count is down to 16, creatinine improving to 2.36. Off all pressors. Urine output also improving. 1.5L in 24 hours 02/14: Extubated 02/13. Tolerating well. WBC now down to 12.8. Creat improving 2.3 to 2. UO 3.4L. remains off all pressors. Was started on Precedex yesterday night for agitation, currently on 0.5 g per KG per hour. Chest x-ray shows left more than right air space disease 02/20/17 Re consult: 62-year-old male who was originally admitted for lower extremity weakness and found to have what was thought to be possible transverse myelitis. His hospital course his included a healthcare associated pneumonia, septic thrombophlebitis, DVT. He was most recently in the hospital floor where he had significant nausea and vomiting and diarrhea. His C. difficile test was recently negative. However, he has experienced worsening acute on chronic renal failure, hypotension, tachycardia, and severe hypoxemia. He did have a bout of vomiting earlier today, and his hospitalist attending suspects that he may have aspirated. He arrives by rapid response to the ICU with a nonrebreather in place in severe respiratory distress with SPO2 of 85%. I emergently intubate the patient, see separate procedure note for details. At this point the patient was hypotensive and tachycardic. He does have a history of an EF of 20%, however clinically he appears in florid septic shock. I placed central line and arterial line started vasopressors and gentle IV fluid resuscitation with 1 L of LR. Patient today was empirically broadened to vancomycin and Zosyn from his oxacillin which was initially treating MSSA bacteremia. He is recultured. Critical-care medicine is consulted to evaluate and manage his worsening multiorgan system failure and decompensated septic shock 02/21: Patient remains intubated sedated. Becomes anxious tachypnea on sedation lightening. Chest x-ray shows mild left lower lobe infiltrate. WBC count is slightly improved today from 23.2 t0 21. C Diff negative. UO adequate, creat slightly worsening. 1.57 today 02/22: Remains intubated sedated tolerated CPAP yesterday, plan is for EGD/ Colonscopy. WBC count back to normal. UO adequate. Creat stable 02/23: Tolerating CPAP trials following commands. Will do a spontaneous breathing trials. Status post EGD colonoscopy yesterday -Gastritis, esophagitis. Diverticulosis and multiple polyps. Urine output adequate but creatinine increasing to 1.7 with patient requiring multiple straight catheterization. We'll reinsert Sloan. 02/24: Breathing comfortably 24 hours after extubation. Protects airway well. 02/25: Excoriate bottom, will place rectal FMS. Start pureed diet. 02/26: Afebrile. Complaining of nausea and vomiting this afternoon. Increased stool output. Continue potassium replacement today. 02/27: 10 PM overnight, acutely hypotensive. Received 3 units PRBCs. Antibiotic coverage broadened to piperacillin/tazobactam, cortisol and 1 dose of vancomycin. Oxacillin drip currently on hold. Symptomatically, patient continues to vague abdominal pain/nausea vomiting which is unchanged for the past several days. Lipase elevated yesterday. Lactic acid normal. Troponin normal. Urinary retention after removal of Sloan. Straight catheter 1300. Cc 02/28: New diagnosis large retroperitoneal hematoma. Received 10 PRBC, 14 FFP, 2 platelets, 1 cryo-, 6 g calcium chloride, 2 is magnesium sulfate and 4 mg Bumex. CTA abdomen revealed possible arterial bleeds iliac, lumbar. Patient is currently on norepinephrine and epinephrine drips and possible need right nephrostomy tube placement due to large hematoma compressing ureter. Intra-abdominal bladder pressures are currently 13 03/01: Afebrile. Received 25 g albumin and 1 unit PRBCs overnight. Intra- abdominal bladder pressures currently 19. Currently on 3 micrograms per minute of norepinephrine. [id number] 1 out of 4 on 4 mics grams per kilogram per minute of cisatracurium. 03/02: Slightly hypothermic overnight. Hemoglobin appears to have stabilized. Troponin bump overnight likely secondary to demand ischemia from hypotension. Hemodynamically stable off all vasopressors. 03/03: Received 1 PRBCs overnight. 3 units currently. Off all vasopressors. Likely rebleeding. Stool is dark. 03/04: Remains unstable. Ventilator dependent. 03/05: afebrile. hgb stable. 03/06: bumex drip started overnight. good uop after bumex initiated. still grossly volume overloaded. Cr downtrending. more awake with transition to propofol. still too volume overloaded to tolerate extubation. hgb stable. 03/07: Afebrile. Tolerating tube feeds at goal with Nepro. Positive BM. On low-dose fentanyl and propofol drips. Potassium currently being replaced. 03/08: Eyes will open on ventilator. Afebrile. Tolerating tube feeding. Failed PSV trial yesterday due to apnea. 03/09: Following commands. Tmax 101. Tolerating tube feeding. One hour PSV trial yesterday. Currently tolerating well so far today 1.5 hours 03/10: Low-grade temperatures. Tolerating PSV trial 10 hours yesterday. Currently at 5/5 at 35%. We'll probably attempt extubation a.m. after hemodialysis. 03/11: Extubated currently in 4 L nasal cannula. Thick secretions thick clear with cough. Currently afebrile. Tolerating diet previously. 03/12: Sleepy this morning but arouses. Following commands. Refusing diet at the present time. On 2 L nasal cannula. 03/13: Patient reintubated last night for worsening respiratory status. Currently sedated on mechanical ventilation. Became hypotensive following intubation and is on Levophed 20 mics per minute. 03/14: Sedated, orally intubated on mech vent at the time of my evaluation this AM, subsequently underwent perc trach placement. Remains on levophed for pressor support. Transfused 1 unit PRBCs today. Persisten 03/15: Trach site clean, dry. CXR with bilateral basilar infiltrates. 03/16: Pulmonary congestion persists. Clinical condition not improving. Prognosis becoming increasingly bleak. 03/17: Glucose intolerance worse. No improvement in neurological function. 03/18: Remains on mechanical ventilation via tracheostomy. Off pressors now. Neurologic status remains poor. 03/19: Drowsy, encephalopathic, arousable. On mechanical ventilation via tracheostomy. Levemir increased for hyperglycemia today. Remains off pressors 03/20: More awake, moves both upper extremities. On mechanical ventilation via tracheostomy. Daily C Pap trials ongoing. 03/21: Awake and alert. On mechanical ventilation via tracheostomy. Opens and closes eyes on command. 03/22: Awake and alert. Tolerated T PIECE for 7 hours yesterday. Dialyzed today. 03/23: Currently on T piece trial. Status post dialysis yesterday on 3 L. Awake and alert. Wants to eat. Subjective 03/24: Currently afebrile. Hemodialysis catheter discontinued yesterday from left IJ. Persistent leukocytosis noted. Potassium will be replaced. Furosemide 40 mg twice a day IV to 20 mg IV twice a day 03/25: WBC count unchanged. Patient on T piece with humidified air greater than 48 hours, tolerating it well. Reconsulted 04/12: The patient was transferred emergently from the floor/ [facility]. Patient was initially seen by edge bonder Dr. Estrada, and the patient was noted to be tachypneic on T piece of 40%. ABGs were performed which showed a PaO2 of 60 on T piece of FiO2 of 40%. Chest x-ray was performed which showed loss of entire left hemidiaphragm business assistant consolidation in the left lower lobe. Concern for mucus plugging versus fluid. The patient was transferred emergently to [facility] placed on a ventilator CT of the chest is pending. Upon arrival in the room the patient is alert and oriented, mouthing words, nodding head to yes and no questions O2 sat is 100% but patient is currently on mechanical ventilation. Currently in no respiratory distress. 04/13: Tmax 99.8. The patient's oxygen requirements have decreased currently FiO2 35% with a PaO2 1 blood gas of 85, O2 saturation 100%. No respiratory distress noted. Patient underwent CT of the chest yesterday noted pleural effusions left greater than right, diagnostic/and therapeutic CT thoracentesis plan for this a.m.. 04/14: Patient underwent CT-guided thoracentesis of the right side with approximately 600 cc withdrawn. Today edge bonder Dr. LABOY in and up size indwelling 6.0 Shiley to a 8.0 Shiley. Minimal bleeding noted around the site. X-ray improving. Patient started on CPAP trials today, as well as tube feeds were initiated. 04/15: Placed on T piece this morning via tracheostomy. Appears to be tolerating it. Laying in bed not in any acute distress. 04/16: Awake and alert. Tolerating T piece. Tolerating PEG feeds. 04/17: Awake and alert. Tolerating T piece. Tolerating tube feeds via PEG 04/18: Awake and alert. Tolerating TPs. Tolerating tube feeds. Passed swallow eval 04/19: Awake and alert. Remains on T piece. Wants to move out of ICU as he indicates to me once again as he has for the past few days. Awaiting CIC bed 04/20: Awake and alert. Remains on T piece. Developed hypotension last night for which she was transiently on Levophed however has been off since early this morning. ID adjusting antibiotics and working up for new sepsis. 04/21: Awake and alert. On T piece. Awaiting CIC bed for the last few days. 04/22: Awake and alert. Remains on T piece. Received 500 cc normal saline this morning for tachycardia. 04/23 No events overnight. Remains on TP's with 35% FIO2. Afebrile. 04/24: Resting comfortably. Got short of breath with Passy-Rafy valve which was taken off. 04/25: Remains on T piece. Awaiting transfer out of ICU. 04/26: Remains on T piece. Still awaiting transfer out of ICU since 04/17. 04/27 Patient became hypotensive, bradycardic and hypoxic, ABG on TP's last night showed acute hypercapnic resp acidosis (PH 7.10, CO2: 80) he was subsequently placed on mechanical ventilator. Patient was given Albumin, 2u PRBC and started on Levophed 3mics. Renal function worse today with Cr: 1.53 from 1.13 04/28 No events overnight off Levophed since yesterday. On no sedation. Afebrile. 04/29 Patient is on ventilator via trach. T;100.4 04/30 Patient remains on ventilator via trach. Afebrile. 05/01 No events overnight. Afebrile. Objective Vital Signs Date Time Temp Pulse Resp B/P (MAP) Pulse Ox O2 Delivery O2 Flow Rate FiO2 05/01/17 07:58 100 40 05/01/17 06:00 105 05/01/17 04:00 98.7 23 113/67 (82) 04/30/17 19:00 Mechanical Ventilator Intake and Output 05/01/17 05/01/17 05/02/17 08:00 16:00 00:00 Intake Total 1038 ml Output Total 1100 ml Balance -62 ml Result Diagram: 05/01/17 0445 05/01/17 0445 Other Results Laboratory Tests Test 05/01/17 04:45 White Blood Count 24.6 TH/MM3 Red Blood Count 3.06 MIL/MM3 Hemoglobin 8.3 GM/DL Hematocrit 26.5 % Mean Corpuscular Volume 86.6 FL Mean Corpuscular Hemoglobin 27.2 PG Mean Corpuscular Hemoglobin Concent 31.4 % Red Cell Distribution Width 17.6 % Platelet Count 269 TH/MM3 Mean Platelet Volume 7.7 FL Neutrophils (%) (Auto) 74.5 % Lymphocytes (%) (Auto) 7.6 % Monocytes (%) (Auto) 6.9 % Eosinophils (%) (Auto) 10.7 % Basophils (%) (Auto) 0.3 % Neutrophils # (Auto) 18.4 TH/MM3 Lymphocytes # (Auto) 1.9 TH/MM3 Monocytes # (Auto) 1.7 TH/MM3 Eosinophils # (Auto) 2.6 TH/MM3 Basophils # (Auto) 0.1 TH/MM3 CBC Comment AUTO DIFF Differential Total Cells Counted 100 Neutrophils % (Manual) 59 % Band Neutrophils % 10 % Lymphocytes % 4 % Monocytes % 3 % Eosinophils % 12 % Neutrophils # (Manual) 19.9 TH/MM3 Metamyelocytes 6 % Myelocytes 6 % Differential Comment FINAL DIFF MANUAL Platelet Estimate NORMAL Platelet Morphology Comment NORMAL Blood Urea Nitrogen 68 MG/DL Creatinine 2.21 MG/DL Random Glucose 190 MG/DL Calcium Level 9.8 MG/DL Phosphorus Level 4.7 MG/DL Magnesium Level 1.8 MG/DL Sodium Level 145 MEQ/L Potassium Level 4.8 MEQ/L Chloride Level 111 MEQ/L Carbon Dioxide Level 24.4 MEQ/L Anion Gap 10 MEQ/L Estimat Glomerular Filtration Rate 30 ML/MIN Imaging Last Impressions Chest X-Ray 04/27/17 0600 Signed Impressions: Service Date/Time: Thursday, April 27, 2017 05:19 - CONCLUSION: Improved aeration. Cornel Harrison MD Thoracentesis 04/13/17 1054 Signed Impressions: Service Date/Time: Thursday, April 13, 2017 15:26 - CONCLUSION: Uncomplicated CT-guided right thoracentesis. Candido Mendoza Jr., MD Chest CT 04/12/17 1558 Signed Impressions: Service Date/Time: March 17:51 - CONCLUSION: 1. Slight increase in size of bilateral effusions and basilar atelectasis, left greater than right compared with February 27. Tracheostomy in good position. Trace Holloway MD Renal Ultrasound 04/02/17 0000 Signed Impressions: Service Date/Time: Sunday, April 02, 2017 16:59 - CONCLUSION: Limited exam with the left kidney being unable to be evaluated in the bladder not distended. There do appear to be multiple shadowing stones at the right kidney without hydronephrosis. Angelo Manzo MD Wrist X-Ray 03/27/17 0000 Signed Impressions: Service Date/Time: Monday, March 27, 2017 13:21 - CONCLUSION: 1. No acute fracture is identified. A portion of the previously documented distal ulna fracture remains visualized. 2. 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 Angelo Allen MD Aortography 02/28/17 0000 Signed Impressions: Service Date/Time: Tuesday, February 28, 2017 08:01 - CONCLUSION: 1. Active hemorrhage from distal right lateral sacral and iliolumbar branches successfully coil and Gelfoam embolized, as above. Juan Bhakta MD Abdomen/Pelvis CT 02/28/17 0000 Signed Impressions: Service Date/Time: Tuesday, February 28, 2017 06:51 - CONCLUSION: 1. The right retroperitoneal hematoma has increased in size, as above. There are 2 serpiginous arterially enhancing structures visualized, one in the right psoas muscle and another extending into the hematoma at the right iliac fossa. These could represent sites of continued active bleeding. 2. Stable moderate size left and small right pleural effusion with associated compressive atelectasis. 3. Stable small volume of free fluid in the abdomen and pelvis. There is also anasarca. The findings concerning the retroperitoneal hematoma were discussed with Dr. Aguiar via telephone at approximately 7: 10 AM on 02/28/2017. Angelo Allen MD Abdomen X-Ray 02/26/17 0000 Signed Impressions: Service Date/Time: Sunday, February 26, 2017 14:52 - CONCLUSION: 1. Nonobstructive bowel gas pattern. Juan Bhakta MD Upper Extremity Ultrasound 02/10/17 0000 Signed Impressions: Service Date/Time: Friday, February 10, 2017 18:46 - CONCLUSION: Occlusive thrombus in the cephalic and basilic veins. Benjamin Person MD Lung Scan-V Nuclear Medicine 02/10/17 0000 Signed Impressions: Service Date/Time: Friday, February 10, 2017 22:17 - CONCLUSION: Low probability pulmonary embolism. Candido Patton MD Head CT 02/10/17 0000 Signed Impressions: Service Date/Time: Friday, February 10, 2017 23:51 - CONCLUSION: Negative noncontrast CT brain. Candido Patton MD Lumbar Puncture Fluoroscopy 02/01/17 0000 Signed Impressions: Service Date/Time: January 09:35 - CONCLUSION: Uncomplicated fluoroscopically guided lumbar puncture. CSF was clear. Nabeel Peralta MD Head Magnetic Resonance Angiography 01/27/17 0000 Signed Impressions: Service Date/Time: Friday, January 27, 2017 10:33 - CONCLUSION: No intracranial vascular abnormality is identified. There is no aneurysm visualized. Angelo Allen MD IVC Filter Placement X-Ray 01/25/17 0000 Signed Impressions: Service Date/Time: January 10:29 - CONCLUSION: Uncomplicated inferior vena cava filter placement as above. Yung Fowler MD Thoracic Spine MRI 01/24/17 0000 Signed Impressions: Service Date/Time: Tuesday, January 24, 2017 22:29 - CONCLUSION: 1. Mild degenerative spondylosis most prominently at T11-L1 with slight effacement of the anterior thecal sac and left lateral recess. No significant neural foraminal stenosis. 2. No acute fracture. Juan Bhakta MD Lumbar Spine MRI 01/23/17 0000 Signed Impressions: Service Date/Time: Monday, January 23, 2017 17:01 - CONCLUSION: 1. At L4-5 is a broad-based disc protrusion with severe central canal and lateral recess stenosis and flattening of the exiting right L4 nerve root. 2. L5-S1 there is a disc protrusion and moderate stenosis with flattening of the exiting L5 nerve roots bilaterally. 3. At L3-4 there is a moderate to severe central stenosis and lateral recess stenosis with mild foraminal stenosis. 4. No acute fracture or spondylolisthesis. Trace Holloway MD Lower Extremity Ultrasound 01/23/17 Signed Impressions: Service Date/Time: Monday, January 23, 2017 09:53 - CONCLUSION: Bilateral focal lower extremity DVT involving the posterior tibial veins. Angelo Garrido MD Cervical Spine MRI 01/23/17 Signed Impressions: Service Date/Time: Monday, January 23, 2017 17:01 - CONCLUSION: 1. Multilevel cervical spine degenerative changes as above. 2. Mild degrees of spinal stenosis at C3/C4-C6/C7. No cord compression or cord signal abnormality. 3. Age indeterminate left paracentral/foraminal disc protrusion at C6/C7. 4. Multilevel foraminal stenosis, most severe on the left at C6/C7. Please see individual levels above. 5. No fracture or subluxation of the cervical spine. Angelo Garrido MD Brain MRI 01/23/17 Signed Impressions: Service Date/Time: Monday, January 23, 2017 17:01 - CONCLUSION: 1. No acute stroke or other acute intracranial abnormality demonstrated. 2. Moderate severity chronic white matter changes, nonspecific but most likely related to chronic small vessel disease. 3. Few scattered tiny lacunar infarcts of the brainstem. 4. Given the findings are not entirely specific, clinical evaluation for possible multiple sclerosis recommended. Angelo Garrido MD Knee X-Ray [id number]/[id number] Signed Impressions: Service Date/Time: Sunday, January 22, 2017 21:17 - CONCLUSION: 1. Evidence of moderate to large joint effusion. 2. No acute fracture or malalignment. 3. Mild 3 compartment osteoarthritic change. Benjamin Person MD Hip and Pelvis X-Ray [id number] Signed Impressions: Service Date/Time: Sunday, January 22, 2017 21:10 - CONCLUSION: 1. Mild to moderate degenerative change of both hips with no acute fracture or malalignment. There is flattening and remodeling of the right humeral head. Benjamin Person MD Objective Remarks GENERAL: 62-year-old male, resting in bed, on mechanical ventilation via trach HEENT: Normocephalic. Atraumatic. Pupils equal, round, reactive. NECK: Tracheostomy in place, around trach site erythematous, yellowish drainage CHEST: b/l equal air entry decreased bilaterally . Scattered rhonchi, no wheezing CARDIOVASCULAR: S1-S2 regular, no gallop or murmur ABDOMEN distended. No rigidity. Umbilical hernia is reducible. No guarding. PEG tube in place : Positive scrotal edema Sloan in situ MUSCULOSKELETAL: Pulses 2+. 1+ bilateral upper and lower extremity edema. NEUROLOGICAL: Awake and alert, has spontaneous eye opening. Opens and closes eyes on command. Moves 4 limbs weakly to stimulation. Procedures 01/25/2017- Retrievable IVC Filter placement 01/26/17-lumbar puncture with fluoroscopy-by interventional radiology 02/01/17- lumbar puncture fluoroscopy by interventional radiology 02/10/17- Endotracheal Intubation 02/10/17-left IJ central venous line placed 02/10/17-left femoral arterial line placed 02/11/17-Diagnostic and therapeutic bronchoscopy with bronchoalveolar lavage 02/11/17-Left upper extremity incision and debridement with excision of septic cephalic vein 02/13/17- Extubated 02/20/17- endotracheal intubation 02/20/17- Left subclavian central line placement 02/20/17-Right radial A-line placement 02/22/17-EGD/colonoscopy 02/28/17-right radial a line 02/28/17- Endotracheal intubation 02/28/17- right sided introducer catheter placement 02/28/17- Right IJ central line placement 02/28/17-Right chest tube placement 02/28/17- Embolization of inferior and superior sacral branches of right internal iliac artery 03/01/17- Hemodialysis access catheter 03/03/17-Right IJ central line placement 03/11/17-Extubated 03/13/17- Endotracheal intubation 03/14/17-Tracheostomy placement, trach downsized to 6.0 Anni 03/30/17 03/15/17-PEG tube placement 04/11/17-CT Chest 04/13/17-thoracentesis right 600 cc removed Date of Insertion: Feb 20, 2017 Date of Insertion: Mar 03, 2017 Line: Central Venous Catheter Side: Right Location: Internal, Jugular A/P Problem List: (1) Septic shock ICD Code: A41.9 - Sepsis, unspecified organism; R65.21 - Severe sepsis with septic shock Status: Acute (2) Acute respiratory failure ICD Code: J96.00 - Acute respiratory failure, unspecified whether with hypoxia or hypercapnia Status: Acute (3) Thrombophlebitis arm ICD Code: I80.8 - Phlebitis and thrombophlebitis of other sites (4) Aspiration pneumonia ICD Code: J69.0 - Pneumonitis due to inhalation of food and vomit Status: Acute (5) Atelectasis of left lung ICD Code: J98.11 - Atelectasis Status: Acute (6) Quadriparesis ICD Code: G82.50 - Quadriplegia, unspecified Status: Acute (7) DVT (deep venous thrombosis) ICD Code: I82.409 - Acute embolism and thrombosis of unspecified deep veins of unspecified lower extremity (8) Altered mental status ICD Code: R41.82 - Altered mental status, unspecified Status: Acute (9) CKD (chronic kidney disease) stage 3, GFR 30-59 ml/min ICD Code: N18.3 - Chronic kidney disease, stage 3 (moderate) Status: Chronic (10) Acute renal failure ICD Code: N17.9 - Acute kidney failure, unspecified Status: Acute (11) Diabetes mellitus ICD Code: E11.9 - Type 2 diabetes mellitus without complications Status: Chronic (12) Distal end of ulna fracture, closed ICD Code: S52.609A - Unspecified fracture of lower end of unspecified ulna, initial encounter for closed fracture Status: Acute (13) Gout ICD Code: M10.9 - Gout, unspecified Status: Chronic Assessment and Plan Assessment: NEURO/PSYCH: Acute metabolic encephalopathy- persistent Quadriparesis secondary to suspected transverse myelitis Recurrent falls On no sedation. Monitor neuro status. Suspected transverse myelitis. Received methylprednisolone 250 mg IV every 6 hours 01/27-02/02, started back on hydrocortisone 02/21/17, initially tapering to 50 mg IV every 8 hours starting received 1 dose at 2100 prior to becoming hypotensive. weaning hydrocortisone taper and stopped 03/09. Resumed hydrocortisone 50mg IV Q6hrly on 03/14 as patient became hypotensive following intubation on 03/13 requiring levophed. Continue Cortef 10mg Q12 LP 01/26 and 02/01. CSF culture negative 01/26, 02/01 Oligoclonal bands negative. CSF/serum IgG index is not elevated. VDRL nonreactive. Cryptococcal antigen negative. Brain MRI 01/23 no acute stroke. Few scattered lacunar infarcts of the brainstem. Moderate chronic white matter changes. MRI cervical/thoracic spine- mild spinal stenosis C3/C4 to C6/C7. No cord compression. RPR negative Neurology has been following, Dr. Crenshaw. Repeat CT brain 02/10 - negative Continue PT/OT Continue oxycodone 10 mg every 4 hours scheduled RESP: Acute hypoxemic respiratory failure Healthcare associated pneumonia/Aspiration Pneumonia S/P Right-sided chest tube 02/28 Continue with vent support keep sat >92% Bronchodilators, pulm toilet, trach care s/p perc tracheostomy 03/14. Pulmonology following Dr. Estrada - 04/13 CT guided thoracentesis scheduled emergently as discussed with Dr. Estrada - 600cc removed (right) 04/14-tracheostomy up sized to 8.[address] [place] [address] edge bonder Dr. Estrada at bedside CV: Systolic heart failure likely chronic with ejection fraction 20-25% Hyperlipidemia History of hypertension Mild TR Sinus tachycardia Elevated troponin likely type II demand ischemia Monitor HR and BP keep MAP>65mmHg Atorvastatin 10 mg by mouth daily for dyslipidemia. 2-D echocardiogram 01/11 revealed EF 20-25%. Mild TR. Pulmonary arterial pressures were normal around 20 GI: Large right retroperitoneal hematoma Erosive esophagitis Adematous/hyperplastic colon polyps Severe acute protein calorie malnutrition Nausea/vomiting - resolved. Diarrhea Gastritis Diverticulosis Internal and external hemorrhoids Hiatal hernia Elevated lipase On tube feeds-Nepro with goal rate 40ml/hr 02/27 CT chest/abdomen and pelvis - 9.4 x 7.5 renal and 16 x 12 cm right psoas muscle hematoma. Fluid around liver and spleen. Right-sided nephrolithiasis CTA abdomen 02/28 - possible blushing around iliac/lumbar vessels Discussed with IR. s/p attempted embolization CT abdomen and pelvis 02/10 atrophic left kidney. Bilateral inguinal hernias fat- containing. Nonobstructing 12 mm right kidney stone repeat CT abd/pelvis did not show evidence of obstruction. patient clinically has been having diarrhea (c. diff negative 02/19). also with nausea/vomiting of unclear etiology. EGD/Colonoscopy-02/22/17 showed gastritis esophagitis, hiatal hernia, diverticulosis and multiple polyps in descending colon and sigmoid which were snared biopsied. Biopsy pending Status post PEG tube placement Lansoprazole 30 mg twice a day for GI prophylaxis FEN/RENAL: Acute kidney injury in the setting of Chronic kidney disease stage 3-4 History of uric acid kidney stones with prior stent BPH Nonfunctioning left kidney Monitor renal function, electrolytes replacement as needed Cr: 2.21 Renal is following- Dr. Liao. On Lasix 20mg Q12, IV Albumin RIOS/SPEP negative. 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 Recommended nephrostomy tube if obstruction Nephrology consulted, off hemodialysis. Making urine. ICU electrolyte replacement protocol Last IHD was 03/22 ID: Septic shock- resolved. Abscess and Suppurative thrombophlebitis left upper extremity MSSA bacteremia Klebsiella UTI ESBL positive Acute aspiration pneumonia/HCAP 04/27 Sputum cx: Pseudomonas, Urine cx: Ivania Bustillo , BC: 05/24 bottles: Coag negative staph likely contaminant 12 BC: NGTD Previously treated with Bactrim, ertapenem, intermittent vancomycin, nafcillin Blood cultures 2, UA ESBL positive Klebsiella UTI Sputum 03/14 - Pseudomonas came back resistant to imipenem, Stenotrophomonas maltophilia Antibiotics per ID. on Tobra nebs, PO Vanco and Diflucan, Zerbaxa, ID is following wound service is following. C-diff PCR negative HEME: Acute blood loss anemia DVT, bilateral posterior tibial vein, IVC filter Septic thrombophlebitis with occlusive thrombus mid cephalic and basilic vein side Monitor CBC s/p transfusion 2units PRBC ( 04/26) Received 10 PRBC, 14 FFP, 2 platelets, 1 cryo-02/28 Received 3 units PRBCs Ultrasound 01/23/17 - Bilateral lower extremity with occlusive posterior tibial vein DVTs. Heparin was initially started for DVT but was placed on hold due to LP with suspected traumatic tap. Currently holding full anticoagulation with enoxaparin 100 mg IV twice a day due to anemia as of 02/26 IVC filter was placed 01/25/17. Ultrasound LUE 02/10 occlusive thrombus mid cephalic vein, basilic vein.s. Transfuse 3 units PRBCs 02/27 Transfuse 2 units PRBCs 03/01. Transfused 1 unit PRBCs on 03/14 ENDO: Diabetes mellitus Hypoglycemia History of prior adrenal insufficiency with shock Gout Accu-Cheks to maintain euglycemia Novulin R every 4 hours. Low Regimen MSK: Right distal ulna fracture. Recommended nonoperative management. PROPH: Lansoprazole 30 mg twice a day twice a day for stress ulcer prophylaxis. Has IVC filter. Therapeutic enoxaparin was placed on hold for retroperitoneal hematoma ACCESS: Right subclavian CVP placed 04/27 Level 3 Problem Qualifiers (1) Aspiration pneumonia: (2) DVT (deep venous thrombosis): Qualified Codes: I82.443 - Acute embolism and thrombosis of tibial vein, bilateral (3) Acute renal failure: Qualified Codes: N17.9 - Acute kidney failure, unspecified (4) Diabetes mellitus: (5) Gout: Hood Madera MD May 01, 2017 09:35
--- NOTE | 2017-05-01 10:31 | HHI.IDPN ---
Subjective Subjective Remarks Patient is a 62-year-old male, admitted to the hospital for evaluation of pain in his right wrist. He gave a history of falling about a week ago and apparently had immediate pain in the right wrist. He did not seek any medical attention initially because reportedly he was very busy. He eventually presented, and he was found to have a distal ulnar fracture on plain films. He also had some redness and swelling. Orthopedics saw the patient, and was being treated conservatively with the splint. During this hospitalization also he started complaining of generalized weakness but more so in his lower extremity than his upper extremity. He had swelling in both lower extremity which revealed evidence of DVT in the posterior tibial veins. Neurology had seen the patient and he underwent lumbar puncture which apparently was traumatic. Patient was therefore not given anticoagulation because of the traumatic LP, and he underwent placement of an IVC filter on January 25. Patient had another lumbar puncture on February 01. He was felt to have transverse myelitis, and he was given high-dose IV Solu-Medrol from January 27 to February 02. There was apparently some improvement in his weakness. The imaging studies done for his weakness showed some spinal stenosis, and neurosurgery was consult that and recommended that there was no surgical intervention to be done. Patient has been stabilizing, but last night apparently deteriorated, and he ended up getting intubated, and had significant hypotension requiring pressors. There was also an ultrasound done of his left upper extremity which showed DVT, and there was evidence of superior 2 thrombophlebitis. Vascular surgery was consult to it and he had IND on his left upper extremity. Patient has had some fevers since yesterday. 2 blood cultures were done yesterday and they're now reported as growing gram-positive cocci in [place] in clusters. He is currently sedated and intubated. He is on Levophed and vasopressin. A central line was placed as well as a femoral a line. He apparently had an IV in his left upper extremity and that was removed yesterday. Patient also has history of chronic kidney disease, and nephrology evaluated the patient. He was just being monitored for his renal insufficiency. Reconsulted 04/12 for low grade fever, leucocytosis, worsening CXR concern for new pneumonia. Notes reviewed Temps ok On CPAP, looks comfortable Has thick, moderate, baker secretions needing frequent suctioning. Sputum with MDR PSAE UC with yeast One BC with Staph epi WBC elevated at 25 CXR reviewed with left base effusion and left side haziness. C diff negative Antibiotics Current Medications Diflucan Oral Vanco - to finish today Tobra nebs - finished 04/30 Zerbaxa Medications (Trade) Dose Ordered Sig/Rosalia Route Start Time Stop Time Status Last Admin (NS Flush) 2 ml UNSCH PRN IV FLUSH 01/23/17 00:30 04/27/17 09:22 (NS Flush) 2 ml BID IV FLUSH 01/23/17 09:00 05/01/17 07:53 (Zofran Inj) 4 mg Q6H PRN IVP 01/23/17 00:30 02/26/17 17:23 (Narcan Inj) 0.4 mg UNSCH PRN IV 01/23/17 00:30 (Edna-Colace) 1 tab BID PO 01/23/17 09:00 Future Hold 02/24/17 20:31 (Dulcolax Supp) 10 mg DAILY PRN RECTAL 01/23/17 00:30 (Lipitor) 10 mg HS PO 01/24/17 21:00 Future hold 04/30/17 20:41 (Glucagon Inj) 1 mg UNSCH PRN OTHER 02/11/17 05:45 02/18/17 18:53 (Flomax) 0.4 mg Q12HR PO 02/17/17 15:00 Future hold 05/01/17 07:53 (Lovenox Inj) 100 mg Q12H SQ 02/18/17 12:00 Future Hold 02/26/17 16:20 (Lactinex) 1 tab TID PO 02/19/17 13:00 05/01/17 07:53 (D50w (Vial) Inj) 25 ml UNSCH PRN IV PUSH 02/20/17 12:45 03/27/17 13:20 (Questran Light Pkt) 4 gm Q12HR PO 02/25/17 21:00 Future Hold 02/27/17 10:32 (Aldactone) 25 mg DAILY PO 02/27/17 09:00 Future Hold (Peridex 0.12% Liq) 15 ml BID@08,20 MT 02/28/17 08:00 05/01/17 07:54 (NS Flush) UNSCH PRN IV FLUSH 03/01/17 13:00 (Heparin Inj) UNSCH PRN IV FLUSH 03/01/17 13:00 (NS Flush) DAILY IV FLUSH 03/04/17 09:00 05/01/17 07:54 (NS Flush) UNSCH PRN IV FLUSH 03/03/17 18:45 (Prevacid Odt) 30 mg BID NG 03/07/17 21:00 05/01/17 07:53 (Tylenol 650 Mg/ 20 ml Liq) 650 mg Q6H PRN PO 03/09/17 10:15 04/30/17 12:01 (Tenormin) 25 mg Q12HR PO 03/12/17 10:00 Future Hold 04/18/17 10:09 (Epogen Inj) 10,000 units UNSCH PRN IV PUSH 03/17/17 11:30 03/22/17 10:52 (Nitroglycerin 2% Oint) 2 inch Q6H PRN TOPICAL 03/23/17 14:00 03/29/17 01:20 (Norvasc) 10 mg DAILY PO 03/28/17 09:00 Future Hold 04/19/17 08:16 (Roxicodone Intensol Liq) 5 mg Q4H PO 04/01/17 18:00 05/01/17 05:35 (NovoLOG INJ) 5 units TIDAC SQ 04/03/17 17:00 Future Hold 04/10/17 08:00 (Xanax) 0.125 mg Q6H PRN PO 04/03/17 22:30 04/25/17 14:27 (Pill Splitter) 1 ea UNSCH PRN OTHER 04/03/17 22:45 (Levsin Liq) 0.125 mg Q4H PRN G-TUBE 04/06/17 15:00 04/12/17 10:09 (Questran 4 Gm Pkt) 4 gm Q12HR G-TUBE 04/08/17 21:00 05/01/17 07:53 (SEROquel) 25 mg DAILY PO 04/09/17 09:00 05/01/17 07:53 (Santyl Oint) 1 applic DAILY TOPICAL 04/10/17 09:00 05/01/17 07:54 (Cortef) 10 mg Q12H PO 04/10/17 18:00 04/30/17 20:37 (Lasix Inj) 40 mg BID@09,18 IV PUSH 04/12/17 18:00 Future Hold 04/19/17 17:15 (Duoneb Neb) 1 ampule Q2HR NEB PRN NEB 04/12/17 17:00 04/30/17 19:36 (VANCOMYCIN for oral use only) 125 mg Q6H PO 04/21/17 21:00 05/01/17 23:00 05/01/17 07:53 (Lopressor Inj) 2.5 mg Q6H PRN IV PUSH 04/23/17 01:15 04/23/17 09:36 (NovoLOG SUPPLEMENTAL SCALE) 1 Q6H SQ 04/27/17 18:00 04/30/17 23:56 (Diflucan) 200 mg DAILY PO 04/29/17 14:00 05/01/17 07:53 Ceftolozane/ Tazobactam 1500 mg/Sodium Chloride 100 ml @ 100 mls/hr Q8H IV 04/29/17 14:00 05/01/17 05:34 Albumin Human 100 ml @ 60 mls/hr Q12H IV 04/30/17 17:00 05/01/17 02:52 (Lasix Inj) 20 mg Q12H IV PUSH 04/30/17 18:00 05/01/17 05:34 Medications (Trade) Dose Ordered Sig/Rosalia Route Start Time Stop Time Status Last Admin (NS Flush) 2 ml UNSCH PRN IV FLUSH 01/23/17 00:30 04/27/17 09:22 (NS Flush) 2 ml BID IV FLUSH 01/23/17 09:00 04/30/17 08:48 (Zofran Inj) 4 mg Q6H PRN IVP 01/23/17 00:30 02/26/17 17:23 (Narcan Inj) 0.4 mg UNSCH PRN IV 01/23/17 00:30 (Edna-Colace) 1 tab BID PO 01/23/17 09:00 Future Hold 02/24/17 20:31 (Dulcolax Supp) 10 mg DAILY PRN RECTAL 01/23/17 00:30 (Lipitor) 10 mg HS PO 01/24/17 21:00 Future hold 04/29/17 20:15 (Glucagon Inj) 1 mg UNSCH PRN OTHER 02/11/17 05:45 02/18/17 18:53 (Flomax) 0.4 mg Q12HR PO 02/17/17 15:00 Future hold 04/30/17 08:47 (Lovenox Inj) 100 mg Q12H SQ 02/18/17 12:00 Future Hold 02/26/17 16:20 (Lactinex) 1 tab TID PO 02/19/17 13:00 04/30/17 08:47 (D50w (Vial) Inj) 25 ml UNSCH PRN IV PUSH 02/20/17 12:45 03/27/17 13:20 (Questran Light Pkt) 4 gm Q12HR PO 02/25/17 21:00 Future Hold 02/27/17 10:32 (Aldactone) 25 mg DAILY PO 02/27/17 09:00 Future Hold (Peridex 0.12% Liq) 15 ml BID@08,20 MT 02/28/17 08:00 04/30/17 08:49 (NS Flush) UNSCH PRN IV FLUSH 03/01/17 13:00 (Heparin Inj) UNSCH PRN IV FLUSH 03/01/17 13:00 (NS Flush) DAILY IV FLUSH 03/04/17 09:00 04/30/17 08:48 (NS Flush) UNSCH PRN IV FLUSH 03/03/17 18:45 (Prevacid Odt) 30 mg BID NG 03/07/17 21:00 04/30/17 08:47 (Tylenol 650 Mg/ 20 ml Liq) 650 mg Q6H PRN PO 03/09/17 10:15 04/28/17 20:04 (Tenormin) 25 mg Q12HR PO 03/12/17 10:00 Future Hold 04/18/17 10:09 (Epogen Inj) 10,000 units UNSCH PRN IV PUSH 03/17/17 11:30 03/22/17 10:52 (Nitroglycerin 2% Oint) 2 inch Q6H PRN TOPICAL 03/23/17 14:00 03/29/17 01:20 (Norvasc) 10 mg DAILY PO 03/28/17 09:00 Future Hold 04/19/17 08:16 (Roxicodone Intensol Liq) 5 mg Q4H PO 04/01/17 18:00 04/30/17 08:47 (NovoLOG INJ) 5 units TIDAC SQ 04/03/17 17:00 Future Hold 04/10/17 08:00 (Xanax) 0.125 mg Q6H PRN PO 04/03/17 22:30 04/25/17 14:27 (Pill Splitter) 1 ea UNSCH PRN OTHER 04/03/17 22:45 (Levsin Liq) 0.125 mg Q4H PRN G-TUBE 04/06/17 15:00 04/12/17 10:09 (Questran 4 Gm Pkt) 4 gm Q12HR G-TUBE 04/08/17 21:00 04/30/17 08:46 (SEROquel) 25 mg DAILY PO 04/09/17 09:00 04/30/17 08:47 (Santyl Oint) 1 applic DAILY TOPICAL 04/10/17 09:00 04/30/17 08:48 (Cortef) 10 mg Q12H PO 04/10/17 18:00 04/30/17 05:29 (Lasix Inj) 40 mg BID@09,18 IV PUSH 04/12/17 18:00 Future Hold 04/19/17 17:15 (Duoneb Neb) 1 ampule Q2HR NEB PRN NEB 04/12/17 17:00 04/30/17 08:14 (Tobramycin Neb) 80 mg Q12HR NEB NEB 04/16/17 09:15 04/30/17 23:00 04/30/17 08:14 (VANCOMYCIN for oral use only) 125 mg Q6H PO 04/21/17 21:00 05/01/17 23:00 04/30/17 08:47 (Lopressor Inj) 2.5 mg Q6H PRN IV PUSH 04/23/17 01:15 04/23/17 09:36 (NovoLOG SUPPLEMENTAL SCALE) 1 Q6H SQ 04/27/17 18:00 04/29/17 22:57 (Diflucan) 200 mg DAILY PO 04/29/17 14:00 04/30/17 08:47 Ceftolozane/ Tazobactam 1500 mg/Sodium Chloride 100 ml @ 100 mls/hr Q8H IV 04/29/17 14:00 04/30/17 05:29 Lines Central line - 04/27 Past Medical History Reviewed Allergies: Coded Allergies: levofloxacin (Verified Allergy, Severe, 01/22/17) Objective . Vital Signs Date Time Temp Pulse Resp B/P (MAP) Pulse Ox O2 Delivery O2 Flow Rate FiO2 05/01/17 07:58 100 40 05/01/17 07:58 40 05/01/17 06:00 105 05/01/17 05:22 96 100 05/01/17 04:00 40 05/01/17 04:00 98.7 102 23 113/67 (82) 95 05/01/17 04:00 102 05/01/17 02:25 100 40 05/01/17 02:00 102 05/01/17 00:00 40 05/01/17 00:00 98.9 109 22 130/71 (90) 99 05/01/17 00:00 109 04/30/17 22:00 102 04/30/17 20:00 102 04/30/17 20:00 97.8 102 25 99/58 (72) 98 04/30/17 20:00 40 04/30/17 19:36 99 40 04/30/17 19:00 100 Mechanical Ventilator 40 04/30/17 18:00 99 04/30/17 16:00 50 04/30/17 16:00 99.0 111 27 136/63 (87) 100 04/30/17 16:00 111 04/30/17 15:14 96 50 04/30/17 14:00 94 04/30/17 12:00 40 04/30/17 12:00 98.3 100 24 103/63 (76) 98 04/30/17 12:00 100 04/30/17 11:07 100 50 . Laboratory Tests Test 04/30/17 03:50 05/01/17 04:45 White Blood Count 25.1 TH/MM3 24.6 TH/MM3 Red Blood Count 3.13 MIL/MM3 3.06 MIL/MM3 Hemoglobin 8.5 GM/DL 8.3 GM/DL Hematocrit 27.1 % 26.5 % Mean Corpuscular Volume 86.7 FL 86.6 FL Mean Corpuscular Hemoglobin 27.2 PG 27.2 PG Mean Corpuscular Hemoglobin Concent 31.4 % 31.4 % Red Cell Distribution Width 17.6 % 17.6 % Platelet Count 306 TH/MM3 269 TH/MM3 Mean Platelet Volume 7.4 FL 7.7 FL Neutrophils (%) (Auto) 70.7 % 74.5 % Lymphocytes (%) (Auto) 7.1 % 7.6 % Monocytes (%) (Auto) 9.5 % 6.9 % Eosinophils (%) (Auto) 12.5 % 10.7 % Basophils (%) (Auto) 0.2 % 0.3 % Neutrophils # (Auto) 17.8 TH/MM3 18.4 TH/MM3 Lymphocytes # (Auto) 1.8 TH/MM3 1.9 TH/MM3 Monocytes # (Auto) 2.4 TH/MM3 1.7 TH/MM3 Eosinophils # (Auto) 3.2 TH/MM3 2.6 TH/MM3 Basophils # (Auto) 0.1 TH/MM3 0.1 TH/MM3 CBC Comment AUTO DIFF AUTO DIFF Differential Total Cells Counted 100 100 Neutrophils % (Manual) 63 % 59 % Band Neutrophils % 1 % 10 % Lymphocytes % 8 % 4 % Monocytes % 4 % 3 % Eosinophils % 21 % 12 % Neutrophils # (Manual) 16.8 TH/MM3 19.9 TH/MM3 Myelocytes 3 % 6 % Differential Comment FINAL DIFF MANUAL FINAL DIFF MANUAL Platelet Estimate NORMAL NORMAL Platelet Morphology Comment NORMAL NORMAL Metamyelocytes 6 % Laboratory Tests Test 04/29/17 18:00 04/30/17 03:50 04/30/17 09:00 05/01/17 04:45 Potassium Level 5.2 MEQ/L 4.4 MEQ/L 5.3 MEQ/L 4.8 MEQ/L Blood Urea Nitrogen 62 MG/DL 65 MG/DL 68 MG/DL Creatinine 2.05 MG/DL 2.07 MG/DL 2.21 MG/DL Random Glucose 116 MG/DL 163 MG/DL 190 MG/DL Calcium Level 9.3 MG/DL 9.6 MG/DL 9.8 MG/DL Sodium Level 124 MEQ/L 142 MEQ/L 145 MEQ/L Chloride Level 92 MEQ/L 111 MEQ/L 111 MEQ/L Carbon Dioxide Level 25.6 MEQ/L 25.4 MEQ/L 24.4 MEQ/L Anion Gap 6 MEQ/L 6 MEQ/L 10 MEQ/L Estimat Glomerular Filtration Rate 33 ML/MIN 33 ML/MIN 30 ML/MIN Phosphorus Level 4.7 MG/DL Magnesium Level 1.8 MG/DL Microbiology Date/Time Source Procedure Growth Status 04/29/17 14:02 Blood Peripheral Aerobic Blood Culture - Preliminary NO GROWTH IN 1 DAY Resulted 04/29/17 14:02 Blood Peripheral Anaerobic Blood Culture - Preliminary NO GROWTH IN 1 DAY Resulted 04/29/17 11:50 Blood Line Aerobic Blood Culture - Preliminary NO GROWTH IN 1 DAY Resulted 04/29/17 11:50 Blood Line Anaerobic Blood Culture - Preliminary NO GROWTH IN 1 DAY Resulted Imaging Chest X-Ray 04/27/17 0600 Signed Impressions: Service Date/Time: Thursday, April 27, 2017 05:19 - CONCLUSION: Improved aeration. Cornel Harrison MD Chest X-Ray 04/26/17 0000 Signed Impressions: Service Date/Time: April 23:35 - CONCLUSION: Right central venous catheter placement. Worsening appearance of the chest. Cornel Harrison MD Chest X-Ray 04/17/17 0000 Signed Impressions: Service Date/Time: Monday, April 17, 2017 03:40 - CONCLUSION: Mild left effusion and possible accompanying atelectasis or consolidation at the left base Angelo Manzo MD Thoracentesis 04/13/17 1054 Signed Impressions: Service Date/Time: Thursday, April 13, 2017 15:26 - CONCLUSION: Uncomplicated CT-guided right thoracentesis. Candido Mendoza Jr., MD Chest CT 04/12/17 1558 Signed Impressions: Service Date/Time: March 17:51 - CONCLUSION: 1. Slight increase in size of bilateral effusions and basilar atelectasis, left greater than right compared with February 27. Tracheostomy in good position. Trace Holloway MD Renal Ultrasound 04/02/17 0000 Signed Impressions: Service Date/Time: Sunday, April 02, 2017 16:59 - CONCLUSION: Limited exam with the left kidney being unable to be evaluated in the bladder not distended. There do appear to be multiple shadowing stones at the right kidney without hydronephrosis. Angelo Manzo MD Wrist X-Ray 03/27/17 0000 Signed Impressions: Service Date/Time: Monday, March 27, 2017 13:21 - CONCLUSION: 1. No acute fracture is identified. A portion of the previously documented distal ulna fracture remains visualized. 2. 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 Angelo Allen MD Aortography 02/28/17 0000 Signed Impressions: Service Date/Time: Tuesday, February 28, 2017 08:01 - CONCLUSION: 1. Active hemorrhage from distal right lateral sacral and iliolumbar branches successfully coil and Gelfoam embolized, as above. Juan Bhakta MD Abdomen/Pelvis CT 02/28/17 0000 Signed Impressions: Service Date/Time: Tuesday, February 28, 2017 06:51 - CONCLUSION: 1. The right retroperitoneal hematoma has increased in size, as above. There are 2 serpiginous arterially enhancing structures visualized, one in the right psoas muscle and another extending into the hematoma at the right iliac fossa. These could represent sites of continued active bleeding. 2. Stable moderate size left and small right pleural effusion with associated compressive atelectasis. 3. Stable small volume of free fluid in the abdomen and pelvis. There is also anasarca. The findings concerning the retroperitoneal hematoma were discussed with Dr. Aguiar via telephone at approximately 7: 10 AM on 02/28/2017. Angelo Allen MD Abdomen X-Ray 02/26/17 0000 Signed Impressions: Service Date/Time: Sunday, February 26, 2017 14:52 - CONCLUSION: 1. Nonobstructive bowel gas pattern. Juan Bhakta MD Upper Extremity Ultrasound 02/10/17 0000 Signed Impressions: Service Date/Time: Friday, February 10, 2017 18:46 - CONCLUSION: Occlusive thrombus in the cephalic and basilic veins. Benjamin Person MD Lung Scan- Nuclear Medicine 02/10/17 0000 Signed Impressions: Service Date/Time: Friday, February 10, 2017 22:17 - CONCLUSION: Low probability pulmonary embolism. Candido Patton MD Head CT 02/10/17 0000 Signed Impressions: Service Date/Time: Friday, February 10, 2017 23:51 - CONCLUSION: Negative noncontrast CT brain. Candido Patton MD Lumbar Puncture Fluoroscopy 02/01/17 0000 Signed Impressions: Service Date/Time: January 09:35 - CONCLUSION: Uncomplicated fluoroscopically guided lumbar puncture. CSF was clear. Nabeel Peralta MD Head Magnetic Resonance Angiography 9/9/17 0000 Signed Impressions: Service Date/Time: Friday, January 27, 2017 10:33 - CONCLUSION: No intracranial vascular abnormality is identified. There is no aneurysm visualized. Angelo Allen MD IVC Filter Placement X-Ray 01/25/17 Signed Impressions: Service Date/Time: January 10:29 - CONCLUSION: Uncomplicated inferior vena cava filter placement as above. Yung Fowler MD Thoracic Spine MRI 01/24/17 Signed Impressions: Service Date/Time: Tuesday, January 24, 2017 22:29 - CONCLUSION: 1. Mild degenerative spondylosis most prominently at T11-L1 with slight effacement of the anterior thecal sac and left lateral recess. No significant neural foraminal stenosis. 2. No acute fracture. Juan Bhakta MD Lumbar Spine MRI 01/23/17 Signed Impressions: Service Date/Time: Monday, January 23, 2017 17:01 - CONCLUSION: 1. At L4-5 is a broad-based disc protrusion with severe central canal and lateral recess stenosis and flattening of the exiting right L4 nerve root. 2. L5-S1 there is a disc protrusion and moderate stenosis with flattening of the exiting L5 nerve roots bilaterally. 3. At L3-4 there is a moderate to severe central stenosis and lateral recess stenosis with mild foraminal stenosis. 4. No acute fracture or spondylolisthesis. Trace Holloway MD Lower Extremity Ultrasound 01/23/17 Signed Impressions: Service Date/Time: Monday, January 23, 2017 09:53 - CONCLUSION: Bilateral focal lower extremity DVT involving the posterior tibial veins. Angelo Garrido MD Cervical Spine MRI 01/23/17 Signed Impressions: Service Date/Time: Monday, January 23, 2017 17:01 - CONCLUSION: 1. Multilevel cervical spine degenerative changes as above. 2. Mild degrees of spinal stenosis at C3/C4-C6/C7. No cord compression or cord signal abnormality. 3. Age indeterminate left paracentral/foraminal disc protrusion at C6/C7. 4. Multilevel foraminal stenosis, most severe on the left at C6/C7. Please see individual levels above. 5. No fracture or subluxation of the cervical spine. Angelo Garrido MD Brain MRI 9/5/17 0000 Signed Impressions: Service Date/Time: Monday, January 23, 2017 17:01 - CONCLUSION: 1. No acute stroke or other acute intracranial abnormality demonstrated. 2. Moderate severity chronic white matter changes, nonspecific but most likely related to chronic small vessel disease. 3. Few scattered tiny lacunar infarcts of the brainstem. 4. Given the findings are not entirely specific, clinical evaluation for possible multiple sclerosis recommended. Angelo Garrido MD Knee X-Ray [id number]/22/[id number] Signed Impressions: Service Date/Time: Sunday, January 22, 2017 21:17 - CONCLUSION: 1. Evidence of moderate to large joint effusion. 2. No acute fracture or malalignment. 3. Mild 3 compartment osteoarthritic change. Benjamin Person MD Hip and Pelvis X-Ray [id number]/22/[id number] Signed Impressions: Service Date/Time: Sunday, January 22, 2017 21:10 - CONCLUSION: 1. Mild to moderate degenerative change of both hips with no acute fracture or malalignment. There is flattening and remodeling of the right humeral head. Benjamin Person MD Physical Exam GENERAL: Looks comfortable on CPAP SKIN: Cool and dry. No generalized rash. Edematous in extremities. EYES: [place] conjunctiva. No petechia or hemorrhage. EARS, NOSE AND THROAT: Nose without bleeding or purulent nasal discharge. Dry oral mucosa NECK: Trach site ok. CARDIOVASCULAR: Regular rate and rhythm. Soft heart sounds. No murmurs RESPIRATORY: Coarse BS bilaterally, decreased at bases. ABDOMEN: Soft, not tender, distended, PEG site ok. No guarding rectal tube in place with small amount of liquid stool EXTREMITIES: No clubbing, cyanosis. Edema +++. Dressing on R leg wound with lots of drainage. Generalized anasarca. NEUROLOGICAL: sedated PSYCHIATRIC: unable to assess LINE: Lines with no evidence of infection Assessment & Plan Remarks IMPRESSION Recurrent respiratory failure, ?plugging, PNA - last CXR better New Sepsis (fever and leucocytosis), temps up again x 1, and WBC still elevated Aspiration Pneumonia in health care setting. Mucus plugs with atelectasis. Leucocytosis, persistent, but decreasing ESBL in urine in recent past. 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 PNA, ?plugging/atelctasis - MDR, I to Zerbaxa, has been tolerating T-piece - likely effusion adding to his respiratory problems, on top of his plugging /secretions Large R retroperitoneal bleed, S/P multiple transfusions and S/P coiling of bleeders Anemia, due to bleed, retroperitoneal MSSA sepsis, due to suppurative thrombophlebitis LUE, S/P I and D and excision of portion of cephalic vein - S/P Rx Respiratory failure, has had several intubations - reintubated again 02/28, extubated 03/11 - reintubated again - S/P trach 03/14 Rx 7 days high dose solumedrol for transverse myelitis Wu LE DVT has IVC filter placed 01/25 - ?hypercoagulable state Chronic kidney disease, worsening creatinine - shock and compression of ureter by hematoma Known DM, HTN Diarrhea, C.diff negative RECOMMENDATION Continue Zerbaxa IV (ASP: recently treated for MDR PSAE and now with GNR in sputum and s.o new infection) - spoke with micro, asked them to do sensitivity Continue Diflucan with higher dose as patient has C.glabrata which needs higher urinary levels to be effectively treated. Sloan changed on 04/24/17. CL new from 04/27/2017. - Less likely to be CLABSI. Suspect GPC is a contaminant. Await ID and repeat BCX results. Continue oral Vanco, end date ordered. Repeat Cdiff PCR ordered. Follow C/S Follow temps Follow CBC Monitor progress Weaning per [facility] Irene Edwards MD May 01, 2017 10:31
[2017-05-01] MEDS ORDERED: SODIUM HYPOCHLORITE 0.25% 500 ML BTL TOPICAL ONE (11:15)
--- NOTE | 2017-05-01 12:01 | PD.WOU.PN ---
Patient Intake Chief Complaint Pressure Injuries Consult Requested by Hood Shin Reason for Consult Pressure Injuries- Wound care nurse consulted. Physician present during wound care rounds. Primary Care Physician Jailene Hernandez MD History of Present Illness Patient seen with wound care team at 11.00 am is comprised of wound care nurses Ashley Fuller RN [facility] and Gabo Coleman RN [facility]. Patient was non verbal throughout the encounter and medical records were reviewed. Patient was admitted on 01/22/2017 with complaints of weakness of lower extremities as well as nondisplaced oblique fracture of the distal right ulna. Patient also has a history of type 2 diabetes, gout, hypertension, hyperlipidemia and chronic kidney disease. His hospital course was complicated by possible septic arthritis and DVT. Patient had a lumbar puncture on 01/26/2017. Also had an IVC. Filter placed on 01/25/17 .Patient was also seen by both neurology, and neurosurgery as well as nephrology. He has a hemoglobin A1c of 8.5 and was first seen by wound care on 02/01/2017. On 02/10/2017 he had an acute hypo- ischemic respiratory failure requiring emergent intubation and was placed in the ICU. His subsequent wound care visit on level CXVII showed stage IV pressure injury of the left heel and unstageable pressure ulcer injury covering the sacrum, coccyx and bilateral Botox. On 04/27/2017 he became hypotensive and bradycardic and hypoxic and was placed on mechanical ventilation. Patient is on numerous medications especially steroids. Here with the wound care team for dressing changes and removal of unstable eschar. Coded Allergies: levofloxacin (Verified Allergy, Severe, 01/22/17) Preferred Language to Discuss: Patient on ventilator Vital Signs Date Time Temp Pulse Resp B/P (MAP) Pulse Ox O2 Delivery O2 Flow Rate FiO2 05/01/17 08:00 40 05/01/17 08:00 98.0 104 26 112/73 (86) 100 05/01/17 07:58 100 40 05/01/17 07:58 40 05/01/17 06:00 105 05/01/17 05:22 96 100 05/01/17 04:00 40 05/01/17 04:00 98.7 102 23 113/67 (82) 95 05/01/17 04:00 102 05/01/17 02:25 100 40 05/01/17 02:00 102 05/01/17 00:00 40 05/01/17 00:00 98.9 109 22 130/71 (90) 99 05/01/17 00:00 109 04/30/17 22:00 102 04/30/17 20:00 102 04/30/17 20:00 97.8 102 25 99/58 (72) 98 04/30/17 20:00 40 04/30/17 19:36 99 40 04/30/17 19:00 100 Mechanical Ventilator 40 04/30/17 18:00 99 04/30/17 16:00 50 04/30/17 16:00 99.0 111 27 136/63 (87) 100 04/30/17 16:00 111 04/30/17 15:14 96 50 04/30/17 14:00 94 04/30/17 12:00 40 04/30/17 12:00 98.3 100 24 103/63 (76) 98 04/30/17 12:00 100 Review of Systems Cardiovascular: COMPLAINS OF: Hx hypertension Respiratory: COMPLAINS OF: Difficulty breathing Musculoskeletal: COMPLAINS OF: Back pain Integumentary: COMPLAINS OF: Slow to heal after cuts Wound Assessment Patient in the ICU and on ventilator General Appearance: Appears sedated Vascular Assessment R Dorsails Pedis: Palpable L Dorsails Pedis: Palpable R Posterior Tibial: Palpable L Posterior Tibial: Palpable Temperature of Left Extremity: Warm Color of Left Extremity: WNL Sensation of Left Extremity: Absent (Not appreciated. Patient appears sedated) Temperature of Right Extremity: Warm Color of Right Extremity: WNL Sensation of Right Extremity: Absent (Not appreciated as patient is sedated an on mechanical ventilation) Wound Information - Wound One 05/01/17: Wound dimensions this week was [id number] x eschar until after debridement where the depth was approximately 1cm. There was undermining from 12-3 oclock with deepest depth at 1oclock of 2cm. The wound was sharply debrided to subcutaneous tissue to remove unstable eschar and slough was also sharply debrided with some fascia. Wound was then cleaned with normal saline and dressed with skin prep, santyl and moistened gauze, abd pads and tape. Wound Location: sacrum, coccyx and bilateral buttocks Wound Type: Pressure Ulcer Wound Length: 15cm Wound Width: 10.6 Wound Depth: 1cm after removal of eschar which was unstable Undermining @ O'clock: 12-3 with deepest at 1 0clock of 2cm Photo Taken: No Exudate: Low Exudate Type: Yellow Debridement: Yes Fibrin Amount: Moderate Granulation Tissue Color: None Granulation Tissue Texture: N/A Exposed: No exposed bone, muscle, tendon Eschar: Yes Odor: Yes Periwound Appearance: FINDINGS: Erythema Dressings: Abdominal Pad, Maxorb Extra AG, Other (skin prep) Dressing Notes: Santyl, Wound Two This was difficult to measure and are deroofed bullae. This was cleaned with normal saline and applied single layer Xeroform gauze dressing and covered with dry cover dressing. Patient tolerated this. Wound Location: Back Wound Type: Other (bullae) Classification: PT- partial thickness Exudate: Low Exudate Type: Serosanguineous Debridement: No Fibrin Amount: Mild Granulation Tissue Color: None Granulation Tissue Texture: N/A Exposed: No exposed bone, muscle, tendon Eschar: No Odor: No Periwound Appearance: FINDINGS: Erythema Dressings: Xeroform 5x9 Dressing Notes: Dry cover dressing Wound Three 05/01/2017: Wound dimensions this week are 6 cm x 3 cm by 0.2cm of slough. Wound sharply debrided to subcutaneous tissue until a good bleeding this was obtained. Cleaned with normal saline and Santyl medical thickness was added to wound bed and covered wounds with bordered gauze dressing. Wound Location: Right lateral leg Wound Type: Pressure Ulcer Classification: FT- full thickness Pressure Stagin Wound Length: 6cm Wound Width: 3cm Wound Depth: slough about 0.2cm Photo Taken: No Exudate: Moderate Exudate Type: Serosanguineous Debridement: Yes Fibrin Amount: Moderate Granulation Tissue Texture: Spongy Exposed: Tendon Eschar: No Odor: No Lab and Radiology Results Radiology Last Impressions Chest X-Ray 04/27/17 0600 Signed Impressions: Service Date/Time: Thursday, April 27, 2017 05:19 - CONCLUSION: Improved aeration. Cornel Harrison MD Thoracentesis 04/13/17 1054 Signed Impressions: Service Date/Time: Thursday, April 13, 2017 15:26 - CONCLUSION: Uncomplicated CT-guided right thoracentesis. Candido Mendoza Jr., MD Chest CT 04/12/17 6228 Signed Impressions: Service Date/Time: March 17:51 - CONCLUSION: 1. Slight increase in size of bilateral effusions and basilar atelectasis, left greater than right compared with February 27. Tracheostomy in good position. Trace Holloway MD Renal Ultrasound 04/02/17 0000 Signed Impressions: Service Date/Time: Sunday, April 02, 2017 16:59 - CONCLUSION: Limited exam with the left kidney being unable to be evaluated in the bladder not distended. There do appear to be multiple shadowing stones at the right kidney without hydronephrosis. Angelo Manzo MD Wrist X-Ray 03/27/17 0000 Signed Impressions: Service Date/Time: Monday, March 27, 2017 13:21 - CONCLUSION: 1. No acute fracture is identified. A portion of the previously documented distal ulna fracture remains visualized. 2. 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 Angelo Allen MD Aortography 02/28/17 0000 Signed Impressions: Service Date/Time: Tuesday, February 28, 2017 08:01 - CONCLUSION: 1. Active hemorrhage from distal right lateral sacral and iliolumbar branches successfully coil and Gelfoam embolized, as above. Juan Bhakta MD Abdomen/Pelvis CT 02/28/17 0000 Signed Impressions: Service Date/Time: Tuesday, February 28, 2017 06:51 - CONCLUSION: 1. The right retroperitoneal hematoma has increased in size, as above. There are 2 serpiginous arterially enhancing structures visualized, one in the right psoas muscle and another extending into the hematoma at the right iliac fossa. These could represent sites of continued active bleeding. 2. Stable moderate size left and small right pleural effusion with associated compressive atelectasis. 3. Stable small volume of free fluid in the abdomen and pelvis. There is also anasarca. The findings concerning the retroperitoneal hematoma were discussed with Dr. Aguiar via telephone at approximately 7: 10 AM on 02/28/2017. Angelo Allen MD Abdomen X-Ray 02/26/17 0000 Signed Impressions: Service Date/Time: Sunday, February 26, 2017 14:52 - CONCLUSION: 1. Nonobstructive bowel gas pattern. Juan Bhakta MD Upper Extremity Ultrasound 02/10/17 0000 Signed Impressions: Service Date/Time: Friday, February 10, 2017 18:46 - CONCLUSION: Occlusive thrombus in the cephalic and basilic veins. Benjamin Person MD Lung Scan-V Nuclear Medicine 02/10/17 0000 Signed Impressions: Service Date/Time: Friday, February 10, 2017 22:17 - CONCLUSION: Low probability pulmonary embolism. Candido Patton MD Head CT 02/10/17 0000 Signed Impressions: Service Date/Time: Friday, February 10, 2017 23:51 - CONCLUSION: Negative noncontrast CT brain. Candido Patton MD Lumbar Puncture Fluoroscopy 02/01/17 0000 Signed Impressions: Service Date/Time: January 09:35 - CONCLUSION: Uncomplicated fluoroscopically guided lumbar puncture. CSF was clear. Nabeel Peralta MD Head Magnetic Resonance Angiography 01/27/17 0000 Signed Impressions: Service Date/Time: Friday, January 27, 2017 10:33 - CONCLUSION: No intracranial vascular abnormality is identified. There is no aneurysm visualized. Angelo Allen MD IVC Filter Placement X-Ray 01/25/17 0000 Signed Impressions: Service Date/Time: January 10:29 - CONCLUSION: Uncomplicated inferior vena cava filter placement as above. Yung Fowler MD Thoracic Spine MRI 01/24/17 0000 Signed Impressions: Service Date/Time: Tuesday, January 24, 2017 22:29 - CONCLUSION: 1. Mild degenerative spondylosis most prominently at T11-L1 with slight effacement of the anterior thecal sac and left lateral recess. No significant neural foraminal stenosis. 2. No acute fracture. Juan Bhakta MD Lumbar Spine MRI 01/23/17 0000 Signed Impressions: Service Date/Time: Monday, January 23, 2017 17:01 - CONCLUSION: 1. At L4-5 is a broad-based disc protrusion with severe central canal and lateral recess stenosis and flattening of the exiting right L4 nerve root. 2. L5-S1 there is a disc protrusion and moderate stenosis with flattening of the exiting L5 nerve roots bilaterally. 3. At L3-4 there is a moderate to severe central stenosis and lateral recess stenosis with mild foraminal stenosis. 4. No acute fracture or spondylolisthesis. Trace Holloway MD Lower Extremity Ultrasound 01/23/17 Signed Impressions: Service Date/Time: Monday, January 23, 2017 09:53 - CONCLUSION: Bilateral focal lower extremity DVT involving the posterior tibial veins. Angelo Garrido MD Cervical Spine MRI 01/23/17 Signed Impressions: Service Date/Time: Monday, January 23, 2017 17:01 - CONCLUSION: 1. Multilevel cervical spine degenerative changes as above. 2. Mild degrees of spinal stenosis at C3/C4-C6/C7. No cord compression or cord signal abnormality. 3. Age indeterminate left paracentral/foraminal disc protrusion at C6/C7. 4. Multilevel foraminal stenosis, most severe on the left at C6/C7. Please see individual levels above. 5. No fracture or subluxation of the cervical spine. Angelo Garrido MD Brain MRI 01/23/17 Signed Impressions: Service Date/Time: Monday, January 23, 2017 17:01 - CONCLUSION: 1. No acute stroke or other acute intracranial abnormality demonstrated. 2. Moderate severity chronic white matter changes, nonspecific but most likely related to chronic small vessel disease. 3. Few scattered tiny lacunar infarcts of the brainstem. 4. Given the findings are not entirely specific, clinical evaluation for possible multiple sclerosis recommended. Angelo Garrido MD Knee X-Ray 01/22/[id number] Signed Impressions: Service Date/Time: Sunday, January 22, 2017 21:17 - CONCLUSION: 1. Evidence of moderate to large joint effusion. 2. No acute fracture or malalignment. 3. Mild 3 compartment osteoarthritic change. Benjamin Person MD Hip and Pelvis X-Ray 01/22/[id number] Signed Impressions: Service Date/Time: Sunday, January 22, 2017 21:10 - CONCLUSION: 1. Mild to moderate degenerative change of both hips with no acute fracture or malalignment. There is flattening and remodeling of the right humeral head. 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 Wound was then cleaned with normal saline and dressed with santyl and moistened gauze , abd pads and tape. Quit just prior to his wound healing is his current medical state as well as the fact that he is on steroids which inhibits wound healing. We'll continue to follow with wound care team. (2) Ulcer of right ankle (3) Ulcer of right leg Status: Chronic Plan: Wound sharply debrided to subcutaneous tissue until a good bleeding this was obtained. Cleaned with normal saline and Santyl medical thickness was added to wound bed and covered wounds with bordered gauze dressing. (4) Deep tissue injury Michelle Canada MD May 01, 2017 12:01
--- NOTE | 2017-05-01 12:34 | PD.WCN.NOT ---
Wound Consult Description: Follow up for stage 4 pressure injury on sacrococcygeal area, bilateral buttocks. Also to unroofed bullae to back Communicated with: ROHINI Davis 5th floor [facility] [place], Doctor Canada and Doctor Austin Recommendation: 1.Please follow orders written by Doctor Canada 2.Continue Xeroform single layer dressing over unroofed bullae to back and cover with dry cover dressing. Additional Information: Patient seen on 5th floor [facility] [place] for follow up of Sacral wound. Patient turned with maximum assist to L side with the assistance of public relations writer, and Barbara VALENCIA. Doctor Canada in room during wound assessment. Removed dressing in place reveal Sacrococcygeal and bilateral buttocks wound. Dignishield in place without leakage.Current treatment for wound is Cleanse wound to sacral area with normal saline and pat dry . Apply claire thick santyl ointment to wound bed and cover with Maxorb II. Cover entire wound area with ABD pads, secured with tape. Please apply skin prep to periwound before applying tape. . Wound bed presents with ~60% yellow / black necrotic tissue that is loosely adherent , ~40% vascular red non granulations tissue Wound has moderate sero-sanguinous drainage has a mild odor.Diffuse small unroofed bullae can be seen to bilateral flank areas. and scattered around periwound, possibly from use of plastic tape. Doctor Canada removed some necrotic tissue at bedside with sharps.Wound measures 15cm x ~10.6cm x ~1cm slough. Wound margins are unattached from 11 to 3 o'clock. undermining is present beween 12 and 3 o'clock deepest at 1 o'clock measuring ~2cm. Wound has a round shape and covers the sacrum, coccyx, and bilateral buttocks. Cleansed wound with normal saline and pat dry. Applied Santyl ointment claire thickness to wound bed with saline moistened gauze pad. Covered entire wound with two ABD pads, secured with Medfix. Sprayed skin prep to periwound and before applying tape.Patient is laying on Ghada bed. Patient is laying two thick cloth pads and with two ultra sorb pads. Patient positioned to L side with pillow in place for support. RN to remove thick cloth underpads. Doctor Canada to write orders for wound care as noted based on presentation of sacral wound today. Assessed L leg wounds Removed dressings in place to reveal full thickness wounds R lateral leg and R lateral ankle.R lateral ankle wound measures ~2cm x ~ 1.5 cm x ~0.2cm. Wound bed presents with ~20% tendon, ~60% slough and ~20% pink tissue. Wound has minimal serous drainage without odor. R lateral leg wound measures 6cm x 3cm x slough. Wound has moderate serous drainage that is without odor.Cleansed wounds to R lateral leg and R lateral ankle with normal saline and applied Santyl claire thickness to wound bed and covered wounds with bordered gauze dressing R lateral proximal Leg wound is noted with 100% pale pink tissue and measures ~ 1.5cm x ~0.6cm x~0.1cm. Wound is draining scant serous drainage without odor. Cleansed wound with normal saline and applied dry cover dressing. Patient is also noted with scattered, diffuse unroofed bullae to back. Cleaned unroofed bullae with normal saline and pat dry applied single layer Xeroform gauze dressing and covered with dry cover dressing. [facility] May 01, 2017 12:34
--- NOTE | 2017-05-01 13:51 | HHI.NPPN ---
Subjective History of Present Illness 61-year-old with history of urinary stone patient again got unstable has recurrent bouts of ICU admission requiring ventilation and respiratory care started having scrotal swelling and acute renal failure again, he had mild hyperkalemia and this was treated I have been reconsulted again Additional Remarks Patient had trach on trach o2, not in distress. Review of Systems General Constitutional: Fatigue Objective Data Data Vital Signs Date Time Temp Pulse Resp B/P (MAP) Pulse Ox O2 Delivery O2 Flow Rate FiO2 05/01/17 12:01 97 40 05/01/17 08:00 40 05/01/17 08:00 98.0 104 26 112/73 (86) 100 05/01/17 07:58 100 40 05/01/17 07:58 40 05/01/17 06:00 105 05/01/17 05:22 96 100 05/01/17 04:00 40 05/01/17 04:00 98.7 102 23 113/67 (82) 95 05/01/17 04:00 102 05/01/17 02:25 100 40 05/01/17 02:00 102 05/01/17 00:00 40 05/01/17 00:00 98.9 109 22 130/71 (90) 99 05/01/17 00:00 109 04/30/17 22:00 102 04/30/17 20:00 102 04/30/17 20:00 97.8 102 25 99/58 (72) 98 04/30/17 20:00 40 04/30/17 19:36 99 40 04/30/17 19:00 100 Mechanical Ventilator 40 04/30/17 18:00 99 04/30/17 16:00 50 04/30/17 16:00 99.0 111 27 136/63 (87) 100 04/30/17 16:00 111 04/30/17 15:14 96 50 04/30/17 14:00 94 -: 05/01/17 0445 05/01/17 0445 Microbiology 05/01/17 Gram Stain, Received Pending 05/01/17 Wound Culture, Received Pending Physical Exam General Appearance: Pale Eyes Eye Exam: Pupils Equal Throat Throat Exam: Oral Mucosa [place] & Moist Neck Neck Exam: Neck Supple Pulmonary Resp Exam: Clear Bilaterally Cardiology CV Exam: Normal Sinus Rhythm Gastrointestinal/Abdomen GI Exam: Non-Tender, Distended Genitourinary Exam: Flank Non-Tender (scrotal edema) Extremeties Extremities Exam: Moderate Edema, Pitting Edema Neurologic Neuro Exam: Awake Assessment/Plan Problem List: (1) Acute renal failure ICD Codes: N17.9 - Acute kidney failure, unspecified Status: Acute Plan: Patient with pneumonia as, sepsis, acute renal failure Had pneumonia, developed sepsis with ARF again creatinine declined slightly post hydration he also had retroperitoneal bleed Pseudomonas in sputum, with colonized airway 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 Patient had been on dialysis earlier in hospitalization. He again has prerenal azotemia and respiratory failure, we will try albumin with Lasix again ON Lasix 20 mg IV every 12 follow kidney functions His hyperkalemia was treated with Kayexalate Follow BMP non oliguric ATN from sepsis UOP 1.4 L He has multiple infections and pneumonia (2) CKD (chronic kidney disease) stage 3, GFR 30-59 ml/min ICD Codes: N18.3 - Chronic kidney disease, stage 3 (moderate) Status: Chronic Plan: Ultrasound revealed chronic kidney disease there is no kidney stones (3) Diabetes ICD Codes: E11.9 - Type 2 diabetes mellitus without complications Plan: Continue to monitor (4) Distal end of ulna fracture, closed ICD Codes: S52.609A - Unspecified fracture of lower end of unspecified ulna, initial encounter for closed fracture Status: Acute Plan: Orthopedic is following Problem Qualifiers (1) Acute renal failure: Qualified Codes: N17.9 - Acute kidney failure, unspecified Laura Liao MD May 01, 2017 13:51
[2017-05-01] MEDS: HYDROCORTISONE 10 MG TAB PO SCH (17:26)
[2017-05-01] MEDS: ATORVASTATIN 10 MG TAB PO SCH (21:00)
[2017-05-02] VITALS (29 sets, daily range): BP systolic 106–167; BP diastolic 55–77; PULSE 101–124; RESP 20–48; TEMP 97.7–99.9; O2SAT 93–99
[2017-05-02] MEDS: INSULIN ASPART SUPPLEMENTAL SCALE SQ SCH ×4 (02:33→17:22)
[2017-05-02] MEDS: oxyCODONE HCL ORAL CONC 5 MG/0.25 ML SYRINGE PO SCH ×6 (02:33→21:54)
[2017-05-02] MEDS: RESP: ALBUTEROL 2.5 MG/IPRATROPIUM 0.5 MG NEB (PRN) NEB (04:45)
[2017-05-02] MEDS: FUROSEMIDE 20 MG/2 ML VIAL IV PUSH SCH ×2 (05:50→17:22)
[2017-05-02] MEDS: CEFTOLOZANE-TAZOBACTAM INJ 1,500 MG in SODIUM CHLORIDE 0.9% INJ 100 ML IV SCH ×3 (05:51→21:53)
[2017-05-02] MEDS: ALBUMIN 25% INJ 100 ML IV SCH ×2 (05:51→17:22)
[2017-05-02] MEDS: HYDROCORTISONE 10 MG TAB PO SCH ×2 (05:52→17:21)
[2017-05-02 07:08] LABS: AUTOMATED NEUTROPHIL # 16.1 TH/MM3 (1.8-7.7); BASOPHIL # 0.1 TH/MM3 (0-0.2); BASOPHIL % 0.3 % (0.0-2.0); EOSINOPHIL # 3.3 TH/MM3 (0-0.4); EOSINOPHIL % 14.5 % (0.0-4.0); HEMATOCRIT 25.5 % (39.0-51.0); LYMPH % 7.8 % (9.0-44.0); LYMPHOCYTE # 1.8 TH/MM3 (1.0-4.8); MEAN CELL VOLUME 85.4 FL (80.0-100.0); MEAN CORPUSCULAR HEMOGLOBIN 26.8 PG (27.0-34.0); MEAN CORPUSCULAR HGB CONC 31.4 % (32.0-36.0); MONO % 5.7 % (0.0-8.0); NEUT % 71.7 % (16.0-70.0); PLATELET COUNT 263 TH/MM3 (150-450); RED BLOOD COUNT 2.98 MIL/MM3 (4.50-5.90); RED CELL DISTRIBUTION WIDTH 17.2 % (11.6-17.2); WHITE BLOOD COUNT 22.5 TH/MM3 (4.0-11.0)
[2017-05-02 07:12] LABS: HEMO FLAGS AUTO DIFF
[2017-05-02 07:37] LABS: BICARBONATE 26.9 MEQ/L (21.0-32.0); POTASSIUM 4.3 MEQ/L (3.5-5.1)
[2017-05-02] MEDS: CHLORHEXIDINE 0.12% (ORAL KIT) 15 ML CUP MT SCH ×2 (08:00→21:54)
[2017-05-02 08:51] LABS: BANDS 9 % (0-6); EOSINOPHILS 14 % (0-4); METAMYELOCYTES 8 % (0-1); MYELOCYTES 6 % (0-0); NEUTROPHIL # MANUAL DIFF 16.2 TH/MM3 (1.8-7.7); PLATELET ESTIMATE SMEAR NORMAL (NORMAL); POLYS (SEG NEUTROPHILS) 49 % (16-70); WBC DIFF SAMPLE 100
[2017-05-02 08:57] LABS: PLATELET MORPHOLOGY NORMAL (NORMAL); SCAN/DIFF FINAL DIFF MANUAL
[2017-05-02] MEDS: SODIUM CHLORIDE 0.9% FLUSH 10 ML FLUSH IV FLUSH SCH ×3 (09:00→21:53)
[2017-05-02] MEDS: COLLAGENASE OINT 30 GM TUBE TOPICAL SCH (09:00)
[2017-05-02] MEDS: CHOLESTYRAMINE 4 GM PACKET G-TUBE SCH ×2 (09:33→21:53)
[2017-05-02] MEDS: LANSOPRAZOLE SOLUTAB 30 MG TAB NG SCH ×2 (09:34→21:53)
[2017-05-02] MEDS: TAMSULOSIN HCL 0.4 MG CAP PO SCH ×2 (09:34→21:53)
[2017-05-02] MEDS: QUEtiapine FUMARATE 25 MG TAB PO SCH (09:34)
[2017-05-02] MEDS: FLUCONAZOLE 200 MG TAB PO SCH (09:34)
[2017-05-02] MEDS: LACTOBACILLUS ACIDOPHILUS TAB PO SCH ×3 (09:34→17:21)
--- NOTE | 2017-05-02 10:25 | HHI.CCPN ---
Subjective Remarks/Hospital Course Date of admission: 01/22 Date of critical care medicine consult 02/10 due to acute hypoxemic respiratory failure requiring emergent intubation 62-year-old male with a past medical history of hypertension, hyperlipidemia, diabetes mellitus, gout, uric acid kidney stones, kidney disease of unknown stage who originally presented to [facility] emergency department on 01/22 after a fall in which he sustained a right distal ulna fracture. He had been experiencing a gradual primarily lower extremity weakness as well as upper extremity weakness that was progressive. Neurology consult was obtained. MRI revealed no acute stroke. He had multifocal white matter changes. Tiny lacunar infarcts of the brainstem. Lumbar MRI report states L4-L5 disc protrusion with cetnral canal stenosis. Dr. Blackwell evaluated and states no cord compression on MRI C/T spine and recommended nonoperative management. Symptoms were felt to be consistent with transverse myelitis and he underwent Solumedrol 250 mg IV q6 hours 01/27-02/02. He also was found to have occlusive thrombus in the bilateral posterior tibial veins. Heparin was being avoided because he had traumatic lumbar puncture on 01/26 and 02/01. IVC filter was placed 01/25. He was undergoing physical therapy, reportedly making some improvements with plan to eventually discharged home with his son (max assist standing, and bed to chair per PT note). Apparently he had some vomiting the evening of 02/09 and additional vomiting on 02/10. He had a fever 102.8 on 02/09. Last recorded bowel movement was 02/03. Tonight he had acute onset of severe hypoxemia and respiratory distress. [facility] called and he was brought emergently to [facility] where his sats were 64% on 100% nonrebreather with mean arterial pressure 44. He was emergently intubated, CVL and art line placed. He is in septic shock. SUBJ: 02/11: Patient remains intubated sedated, critically ill. FiO2 reduced to 80% after increasing PEEP to 12. In severe septic shock Levophed at 16 mcg/m, vasopressin at 0.04 international units. D/W vascular surgery Dr. Enciso. He performed bedside Left upper extremity incision and debridement and excision of septic cephalic vein. 02/12: Remains intubated sedated profoundly septic, in shock on vasopressin and 7 mcg/min Levophed. FiO2 has improved to 45%, WBC count remains elevated with 20 ,000 white count significant left shift. Slight improvement in creatinine 2.9 urine output 750 ml 24 hours. 2-D echo shows LV ejection fraction 20-25%, no vegetation reported. Blood cultures 4 staph aureus. Wound culture pending 02/13: Remains critically ill but stable to improving. WBC count is down to 16, creatinine improving to 2.36. Off all pressors. Urine output also improving. 1.5L in 24 hours 02/14: Extubated 02/13. Tolerating well. WBC now down to 12.8. Creat improving 2.3 to 2. UO 3.4L. remains off all pressors. Was started on Precedex yesterday night for agitation, currently on 0.5 g per KG per hour. Chest x-ray shows left more than right air space disease 02/20/17 Re consult: 62-year-old male who was originally admitted for lower extremity weakness and found to have what was thought to be possible transverse myelitis. His hospital course his included a healthcare associated pneumonia, septic thrombophlebitis, DVT. He was most recently in the hospital floor where he had significant nausea and vomiting and diarrhea. His C. difficile test was recently negative. However, he has experienced worsening acute on chronic renal failure, hypotension, tachycardia, and severe hypoxemia. He did have a bout of vomiting earlier today, and his hospitalist attending suspects that he may have aspirated. He arrives by rapid response to the ICU with a nonrebreather in place in severe respiratory distress with SPO2 of 85%. I emergently intubate the patient, see separate procedure note for details. At this point the patient was hypotensive and tachycardic. He does have a history of an EF of 20%, however clinically he appears in florid septic shock. I placed central line and arterial line started vasopressors and gentle IV fluid resuscitation with 1 L of LR. Patient today was empirically broadened to vancomycin and Zosyn from his oxacillin which was initially treating MSSA bacteremia. He is recultured. Critical-care medicine is consulted to evaluate and manage his worsening multiorgan system failure and decompensated septic shock 02/21: Patient remains intubated sedated. Becomes anxious tachypnea on sedation lightening. Chest x-ray shows mild left lower lobe infiltrate. WBC count is slightly improved today from 23.2 t0 21. C Diff negative. UO adequate, creat slightly worsening. 1.57 today 02/22: Remains intubated sedated tolerated CPAP yesterday, plan is for EGD/ Colonscopy. WBC count back to normal. UO adequate. Creat stable 02/23: Tolerating CPAP trials following commands. Will do a spontaneous breathing trials. Status post EGD colonoscopy yesterday -Gastritis, esophagitis. Diverticulosis and multiple polyps. Urine output adequate but creatinine increasing to 1.7 with patient requiring multiple straight catheterization. We'll reinsert Sloan. 02/24: Breathing comfortably 24 hours after extubation. Protects airway well. 02/25: Excoriate bottom, will place rectal FMS. Start pureed diet. 02/26: Afebrile. Complaining of nausea and vomiting this afternoon. Increased stool output. Continue potassium replacement today. 02/27: 10 PM overnight, acutely hypotensive. Received 3 units PRBCs. Antibiotic coverage broadened to piperacillin/tazobactam, cortisol and 1 dose of vancomycin. Oxacillin drip currently on hold. Symptomatically, patient continues to vague abdominal pain/nausea vomiting which is unchanged for the past several days. Lipase elevated yesterday. Lactic acid normal. Troponin normal. Urinary retention after removal of Sloan. Straight catheter 1300. Cc 02/28: New diagnosis large retroperitoneal hematoma. Received 10 PRBC, 14 FFP, 2 platelets, 1 cryo-, 6 g calcium chloride, 2 is magnesium sulfate and 4 mg Bumex. CTA abdomen revealed possible arterial bleeds iliac, lumbar. Patient is currently on norepinephrine and epinephrine drips and possible need right nephrostomy tube placement due to large hematoma compressing ureter. Intra-abdominal bladder pressures are currently 13 03/01: Afebrile. Received 25 g albumin and 1 unit PRBCs overnight. Intra- abdominal bladder pressures currently 19. Currently on 3 micrograms per minute of norepinephrine. Bdgig-wh-ocqg 1 out of 4 on 4 mics grams per kilogram per minute of cisatracurium. 03/02: Slightly hypothermic overnight. Hemoglobin appears to have stabilized. Troponin bump overnight likely secondary to demand ischemia from hypotension. Hemodynamically stable off all vasopressors. 03/03: Received 1 PRBCs overnight. 3 units currently. Off all vasopressors. Likely rebleeding. Stool is dark. 03/04: Remains unstable. Ventilator dependent. 03/05: afebrile. hgb stable. 03/06: bumex drip started overnight. good uop after bumex initiated. still grossly volume overloaded. Cr downtrending. more awake with transition to propofol. still too volume overloaded to tolerate extubation. hgb stable. 03/07: Afebrile. Tolerating tube feeds at goal with Nepro. Positive BM. On low-dose fentanyl and propofol drips. Potassium currently being replaced. 03/08: Eyes will open on ventilator. Afebrile. Tolerating tube feeding. Failed PSV trial yesterday due to apnea. 03/09: Following commands. Tmax 101. Tolerating tube feeding. One hour PSV trial yesterday. Currently tolerating well so far today 1.5 hours 03/10: Low-grade temperatures. Tolerating PSV trial 10 hours yesterday. Currently at 5/5 at 35%. We'll probably attempt extubation a.m. after hemodialysis. 03/11: Extubated currently in 4 L nasal cannula. Thick secretions thick clear with cough. Currently afebrile. Tolerating diet previously. 03/12: Sleepy this morning but arouses. Following commands. Refusing diet at the present time. On 2 L nasal cannula. 03/13: Patient reintubated last night for worsening respiratory status. Currently sedated on mechanical ventilation. Became hypotensive following intubation and is on Levophed 20 mics per minute. 03/14: Sedated, orally intubated on mech vent at the time of my evaluation this AM, subsequently underwent perc trach placement. Remains on levophed for pressor support. Transfused 1 unit PRBCs today. Persisten 03/15: Trach site clean, dry. CXR with bilateral basilar infiltrates. 03/16: Pulmonary congestion persists. Clinical condition not improving. Prognosis becoming increasingly bleak. 03/17: Glucose intolerance worse. No improvement in neurological function. 03/18: Remains on mechanical ventilation via tracheostomy. Off pressors now. Neurologic status remains poor. 03/19: Drowsy, encephalopathic, arousable. On mechanical ventilation via tracheostomy. Levemir increased for hyperglycemia today. Remains off pressors 03/20: More awake, moves both upper extremities. On mechanical ventilation via tracheostomy. Daily C Pap trials ongoing. 03/21: Awake and alert. On mechanical ventilation via tracheostomy. Opens and closes eyes on command. 03/22: Awake and alert. Tolerated T PIECE for 7 hours yesterday. Dialyzed today. 03/23: Currently on T piece trial. Status post dialysis yesterday on 3 L. Awake and alert. Wants to eat. Subjective 03/24: Currently afebrile. Hemodialysis catheter discontinued yesterday from left IJ. Persistent leukocytosis noted. Potassium will be replaced. Furosemide 40 mg twice a day IV to 20 mg IV twice a day 03/25: WBC count unchanged. Patient on T piece with humidified air greater than 48 hours, tolerating it well. Reconsulted 04/12: The patient was transferred emergently from the floor/ [facility]. Patient was initially seen by supervisor tower Dr. Estrada, and the patient was noted to be tachypneic on T piece of 40%. ABGs were performed which showed a PaO2 of 60 on T piece of FiO2 of 40%. Chest x-ray was performed which showed loss of entire left hemidiaphragm hair assistant consolidation in the left lower lobe. Concern for mucus plugging versus fluid. The patient was transferred emergently to [facility] placed on a ventilator CT of the chest is pending. Upon arrival in the room the patient is alert and oriented, mouthing words, nodding head to yes and no questions O2 sat is 100% but patient is currently on mechanical ventilation. Currently in no respiratory distress. 04/13: Tmax 99.8. The patient's oxygen requirements have decreased currently FiO2 35% with a PaO2 1 blood gas of 85, O2 saturation 100%. No respiratory distress noted. Patient underwent CT of the chest yesterday noted pleural effusions left greater than right, diagnostic/and therapeutic CT thoracentesis plan for this a.m.. 04/14: Patient underwent CT-guided thoracentesis of the right side with approximately 600 cc withdrawn. Today supervisor tower Dr. LABOY in and up size indwelling 6.0 Shiley to a 8.0 Shiley. Minimal bleeding noted around the site. X-ray improving. Patient started on CPAP trials today, as well as tube feeds were initiated. 04/15: Placed on T piece this morning via tracheostomy. Appears to be tolerating it. Laying in bed not in any acute distress. 04/16: Awake and alert. Tolerating T piece. Tolerating PEG feeds. 04/17: Awake and alert. Tolerating T piece. Tolerating tube feeds via PEG 04/18: Awake and alert. Tolerating TPs. Tolerating tube feeds. Passed swallow eval 04/19: Awake and alert. Remains on T piece. Wants to move out of ICU as he indicates to me once again as he has for the past few days. Awaiting [facility]IC bed 04/20: Awake and alert. Remains on T piece. Developed hypotension last night for which she was transiently on Levophed however has been off since early this morning. ID adjusting antibiotics and working up for new sepsis. 04/21: Awake and alert. On T piece. Awaiting [facility]IC bed for the last few days. 04/22: Awake and alert. Remains on T piece. Received 500 cc normal saline this morning for tachycardia. 04/23 No events overnight. Remains on TP's with 35% FIO2. Afebrile. 04/24: Resting comfortably. Got short of breath with Passy-Rafy valve which was taken off. 04/25: Remains on T piece. Awaiting transfer out of ICU. 04/26: Remains on T piece. Still awaiting transfer out of ICU since 04/17. 04/27 Patient became hypotensive, bradycardic and hypoxic, ABG on TP's last night showed acute hypercapnic resp acidosis (PH 7.10, CO2: 80) he was subsequently placed on mechanical ventilator. Patient was given Albumin, 2u PRBC and started on Levophed 3mics. Renal function worse today with Cr: 1.53 from 1.13 04/28 No events overnight off Levophed since yesterday. On no sedation. Afebrile. 04/29 Patient is on ventilator via trach. T;100.4 04/30 Patient remains on ventilator via trach. Afebrile. 05/01 No events overnight. Afebrile. 05/02 No events overnight. On ventilator via trach. T: 100.1 last night. Objective Vital Signs Date Time Temp Pulse Resp B/P (MAP) Pulse Ox O2 Delivery O2 Flow Rate FiO2 05/02/17 08:16 97 35 05/02/17 06:00 119 05/02/17 04:00 Mechanical Ventilator 05/02/17 04:00 99.9 23 126/73 (90) Intake and Output 05/02/17 05/02/17 05/03/17 08:00 16:00 00:00 Intake Total 869 ml Output Total 1535 ml Balance -666 ml Result Diagram: 05/02/17 0515 05/02/17 0515 Other Results Laboratory Tests Test 05/01/17 19:30 05/02/17 05:15 Albumin 1.7 GM/DL Prealbumin 5 MG/DL White Blood Count 22.5 TH/MM3 Red Blood Count 2.98 MIL/MM3 Hemoglobin 8.0 GM/DL Hematocrit 25.5 % Mean Corpuscular Volume 85.4 FL Mean Corpuscular Hemoglobin 26.8 PG Mean Corpuscular Hemoglobin Concent 31.4 % Red Cell Distribution Width 17.2 % Platelet Count 263 TH/MM3 Mean Platelet Volume 7.8 FL Neutrophils (%) (Auto) 71.7 % Lymphocytes (%) (Auto) 7.8 % Monocytes (%) (Auto) 5.7 % Eosinophils (%) (Auto) 14.5 % Basophils (%) (Auto) 0.3 % Neutrophils # (Auto) 16.1 TH/MM3 Lymphocytes # (Auto) 1.8 TH/MM3 Monocytes # (Auto) 1.3 TH/MM3 Eosinophils # (Auto) 3.3 TH/MM3 Basophils # (Auto) 0.1 TH/MM3 CBC Comment AUTO DIFF Differential Total Cells Counted 100 Neutrophils % (Manual) 49 % Band Neutrophils % 9 % Lymphocytes % 12 % Monocytes % 2 % Eosinophils % 14 % Neutrophils # (Manual) 16.2 TH/MM3 Metamyelocytes 8 % Myelocytes 6 % Differential Comment FINAL DIFF MANUAL Platelet Estimate NORMAL Platelet Morphology Comment NORMAL Blood Urea Nitrogen 68 MG/DL Creatinine 2.14 MG/DL Random Glucose 130 MG/DL Calcium Level 9.6 MG/DL Sodium Level 145 MEQ/L Potassium Level 4.3 MEQ/L Chloride Level 111 MEQ/L Carbon Dioxide Level 26.9 MEQ/L Anion Gap 7 MEQ/L Estimat Glomerular Filtration Rate 31 ML/MIN Imaging Last Impressions Chest X-Ray 04/27/17 0600 Signed Impressions: Service Date/Time: Thursday, April 27, 2017 05:19 - CONCLUSION: Improved aeration. Cornel Harrison MD Thoracentesis 04/13/17 1054 Signed Impressions: Service Date/Time: Thursday, April 13, 2017 15:26 - CONCLUSION: Uncomplicated CT-guided right thoracentesis. Candido Mendoza Jr., MD Chest CT 04/12/17 3318 Signed Impressions: Service Date/Time: March 17:51 - CONCLUSION: 1. Slight increase in size of bilateral effusions and basilar atelectasis, left greater than right compared with February 27. Tracheostomy in good position. Trace Holloway MD Renal Ultrasound 04/02/17 0000 Signed Impressions: Service Date/Time: Sunday, April 02, 2017 16:59 - CONCLUSION: Limited exam with the left kidney being unable to be evaluated in the bladder not distended. There do appear to be multiple shadowing stones at the right kidney without hydronephrosis. Angelo Manzo MD Wrist X-Ray 03/27/17 0000 Signed Impressions: Service Date/Time: Monday, March 27, 2017 13:21 - CONCLUSION: 1. No acute fracture is identified. A portion of the previously documented distal ulna fracture remains visualized. 2. 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 Angelo Allen MD Aortography 02/28/17 0000 Signed Impressions: Service Date/Time: Tuesday, February 28, 2017 08:01 - CONCLUSION: 1. Active hemorrhage from distal right lateral sacral and iliolumbar branches successfully coil and Gelfoam embolized, as above. Juan Bhakta MD Abdomen/Pelvis CT 02/28/17 0000 Signed Impressions: Service Date/Time: Tuesday, February 28, 2017 06:51 - CONCLUSION: 1. The right retroperitoneal hematoma has increased in size, as above. There are 2 serpiginous arterially enhancing structures visualized, one in the right psoas muscle and another extending into the hematoma at the right iliac fossa. These could represent sites of continued active bleeding. 2. Stable moderate size left and small right pleural effusion with associated compressive atelectasis. 3. Stable small volume of free fluid in the abdomen and pelvis. There is also anasarca. The findings concerning the retroperitoneal hematoma were discussed with Dr. Aguiar via telephone at approximately 7: 10 AM on 02/28/2017. Angelo Allen MD Abdomen X-Ray 02/26/17 0000 Signed Impressions: Service Date/Time: Sunday, February 26, 2017 14:52 - CONCLUSION: 1. Nonobstructive bowel gas pattern. Juan Bhakta MD Upper Extremity Ultrasound 02/10/17 0000 Signed Impressions: Service Date/Time: Friday, February 10, 2017 18:46 - CONCLUSION: Occlusive thrombus in the cephalic and basilic veins. Benjamin Person MD Lung Scan-V Nuclear Medicine 02/10/17 0000 Signed Impressions: Service Date/Time: Friday, February 10, 2017 22:17 - CONCLUSION: Low probability pulmonary embolism. Candido Patton MD Head CT 02/10/17 Signed Impressions: Service Date/Time: Friday, February 10, 2017 23:51 - CONCLUSION: Negative noncontrast CT brain. Candido Patton MD Lumbar Puncture Fluoroscopy 02/01/17 0000 Signed Impressions: Service Date/Time: January 09:35 - CONCLUSION: Uncomplicated fluoroscopically guided lumbar puncture. CSF was clear. Nabeel Peralta MD Head Magnetic Resonance Angiography 01/27/17 Signed Impressions: Service Date/Time: Friday, January 27, 2017 10:33 - CONCLUSION: No intracranial vascular abnormality is identified. There is no aneurysm visualized. Angelo Allen MD IVC Filter Placement X-Ray 01/25/17 0000 Signed Impressions: Service Date/Time: January 10:29 - CONCLUSION: Uncomplicated inferior vena cava filter placement as above. Yung Fowler MD Thoracic Spine MRI 01/24/17 0000 Signed Impressions: Service Date/Time: Tuesday, January 24, 2017 22:29 - CONCLUSION: 1. Mild degenerative spondylosis most prominently at T11-L1 with slight effacement of the anterior thecal sac and left lateral recess. No significant neural foraminal stenosis. 2. No acute fracture. Juan Bhakta MD Lumbar Spine MRI 01/23/17 0000 Signed Impressions: Service Date/Time: Monday, January 23, 2017 17:01 - CONCLUSION: 1. At L4-5 is a broad-based disc protrusion with severe central canal and lateral recess stenosis and flattening of the exiting right L4 nerve root. 2. L5-S1 there is a disc protrusion and moderate stenosis with flattening of the exiting L5 nerve roots bilaterally. 3. At L3-4 there is a moderate to severe central stenosis and lateral recess stenosis with mild foraminal stenosis. 4. No acute fracture or spondylolisthesis. Trace Holloway MD Lower Extremity Ultrasound 01/23/17 Signed Impressions: Service Date/Time: Monday, January 23, 2017 09:53 - CONCLUSION: Bilateral focal lower extremity DVT involving the posterior tibial veins. Angelo Garrido MD Cervical Spine MRI 01/23/17 Signed Impressions: Service Date/Time: Monday, January 23, 2017 17:01 - CONCLUSION: 1. Multilevel cervical spine degenerative changes as above. 2. Mild degrees of spinal stenosis at C3/C4-C6/C7. No cord compression or cord signal abnormality. 3. Age indeterminate left paracentral/foraminal disc protrusion at C6/C7. 4. Multilevel foraminal stenosis, most severe on the left at C6/C7. Please see individual levels above. 5. No fracture or subluxation of the cervical spine. Angelo Garrido MD Brain MRI 01/23/17 Signed Impressions: Service Date/Time: Monday, January 23, 2017 17:01 - CONCLUSION: 1. No acute stroke or other acute intracranial abnormality demonstrated. 2. Moderate severity chronic white matter changes, nonspecific but most likely related to chronic small vessel disease. 3. Few scattered tiny lacunar infarcts of the brainstem. 4. Given the findings are not entirely specific, clinical evaluation for possible multiple sclerosis recommended. Angelo Garrido MD Knee X-Ray [id number]/[id number] Signed Impressions: Service Date/Time: Sunday, January 22, 2017 21:17 - CONCLUSION: 1. Evidence of moderate to large joint effusion. 2. No acute fracture or malalignment. 3. Mild 3 compartment osteoarthritic change. Benjamin Person MD Hip and Pelvis X-Ray [id number] Signed Impressions: Service Date/Time: Sunday, January 22, 2017 21:10 - CONCLUSION: 1. Mild to moderate degenerative change of both hips with no acute fracture or malalignment. There is flattening and remodeling of the right humeral head. Benjamin Person MD Objective Remarks GENERAL: 62-year-old male, resting in bed, on mechanical ventilation via trach HEENT: Normocephalic. Atraumatic. Pupils equal, round, reactive. NECK: Tracheostomy in place, around trach site erythematous, yellowish drainage CHEST: b/l equal air entry CARDIOVASCULAR: Tachycardic S1-S2 regular, no gallop or murmur ABDOMEN distended. No rigidity. Umbilical hernia is reducible. No guarding. PEG tube in place : Positive scrotal edema Sloan in situ MUSCULOSKELETAL: Pulses 2+. 1+ bilateral upper and lower extremity edema. NEUROLOGICAL: Awake and alert, has spontaneous eye opening. Opens and closes eyes on command. Moves 4 limbs weakly to stimulation. Procedures 01/25/2017- Retrievable IVC Filter placement 01/26/17-lumbar puncture with fluoroscopy-by interventional radiology 02/01/17- lumbar puncture fluoroscopy by interventional radiology 02/10/17- Endotracheal Intubation 02/10/17-left IJ central venous line placed 02/10/17-left femoral arterial line placed 02/11/17-Diagnostic and therapeutic bronchoscopy with bronchoalveolar lavage 02/11/17-Left upper extremity incision and debridement with excision of septic cephalic vein 02/13/17- Extubated 02/20/17- endotracheal intubation 02/20/17- Left subclavian central line placement 02/20/17-Right radial A-line placement 02/22/17-EGD/colonoscopy 02/28/17-right radial a line 02/28/17- Endotracheal intubation 02/28/17- right sided introducer catheter placement 02/28/17- Right IJ central line placement 02/28/17-Right chest tube placement 02/28/17- Embolization of inferior and superior sacral branches of right internal iliac artery 03/01/17- Hemodialysis access catheter 03/03/17-Right IJ central line placement 03/11/17-Extubated 03/13/17- Endotracheal intubation 03/14/17-Tracheostomy placement, trach downsized to 6.0 Anni 03/30/17 03/15/17-PEG tube placement 04/11/17-CT Chest 04/13/17-thoracentesis right 600 cc removed Date of Insertion: Feb 20, 2017 Date of Insertion: Mar 03, 2017 Line: Central Venous Catheter Side: Right Location: Internal, Jugular A/P Problem List: (1) Septic shock ICD Code: A41.9 - Sepsis, unspecified organism; R65.21 - Severe sepsis with septic shock Status: Acute (2) Acute respiratory failure ICD Code: J96.00 - Acute respiratory failure, unspecified whether with hypoxia or hypercapnia Status: Acute (3) Thrombophlebitis arm ICD Code: I80.8 - Phlebitis and thrombophlebitis of other sites (4) Aspiration pneumonia ICD Code: J69.0 - Pneumonitis due to inhalation of food and vomit Status: Acute (5) Atelectasis of left lung ICD Code: J98.11 - Atelectasis Status: Acute (6) Quadriparesis ICD Code: G82.50 - Quadriplegia, unspecified Status: Acute (7) DVT (deep venous thrombosis) ICD Code: I82.409 - Acute embolism and thrombosis of unspecified deep veins of unspecified lower extremity (8) Altered mental status ICD Code: R41.82 - Altered mental status, unspecified Status: Acute (9) CKD (chronic kidney disease) stage 3, GFR 30-59 ml/min ICD Code: N18.3 - Chronic kidney disease, stage 3 (moderate) Status: Chronic (10) Acute renal failure ICD Code: N17.9 - Acute kidney failure, unspecified Status: Acute (11) Diabetes mellitus ICD Code: E11.9 - Type 2 diabetes mellitus without complications Status: Chronic (12) Distal end of ulna fracture, closed ICD Code: S52.609A - Unspecified fracture of lower end of unspecified ulna, initial encounter for closed fracture Status: Acute (13) Gout ICD Code: M10.9 - Gout, unspecified Status: Chronic Assessment and Plan Assessment: NEURO/PSYCH: Acute metabolic encephalopathy- persistent Quadriparesis secondary to suspected transverse myelitis Recurrent falls On no sedation. Monitor neuro status. Suspected transverse myelitis. Received methylprednisolone 250 mg IV every 6 hours 01/27-02/02, started back on hydrocortisone 02/21/17, initially tapering to 50 mg IV every 8 hours starting received 1 dose at 2100 prior to becoming hypotensive. weaning hydrocortisone taper and stopped 03/09. Resumed hydrocortisone 50mg IV Q6hrly on 03/14 as patient became hypotensive following intubation on 03/13 requiring levophed. Continue Cortef 10mg Q12 LP 01/26 and 02/01. CSF culture negative 01/26, 02/01 Oligoclonal bands negative. CSF/serum IgG index is not elevated. VDRL nonreactive. Cryptococcal antigen negative. Brain MRI 01/23 no acute stroke. Few scattered lacunar infarcts of the brainstem. Moderate chronic white matter changes. MRI cervical/thoracic spine- mild spinal stenosis C3/C4 to C6/C7. No cord compression. RPR negative Neurology has been following, Dr. Crenshaw. Repeat CT brain 02/10 - negative Continue PT/OT Continue oxycodone 10 mg every 4 hours scheduled RESP: Acute hypoxemic respiratory failure Healthcare associated pneumonia/Aspiration Pneumonia S/P Right-sided chest tube 02/28 Continue with vent support keep sat >92% Bronchodilators, pulm toilet, trach care s/p perc tracheostomy 03/14. Pulmonology following Dr. Estrada - 04/13 CT guided thoracentesis scheduled emergently as discussed with Dr. Estrada - 600cc removed (right) 04/14-tracheostomy up sized to 8.0 [place] [address] supervisor tower Dr. Estrada at bedside CV: Systolic heart failure likely chronic with ejection fraction 20-25% Hyperlipidemia History of hypertension Mild TR Sinus tachycardia Elevated troponin likely type II demand ischemia Place on Lopressor 25mg Q12- Monitor HR and BP keep MAP>65mmHg Atorvastatin 10 mg by mouth daily for dyslipidemia. 2-D echocardiogram 01/11 revealed EF 20-25%. Mild TR. Pulmonary arterial pressures were normal around 20 GI: Large right retroperitoneal hematoma Erosive esophagitis Adematous/hyperplastic colon polyps Severe acute protein calorie malnutrition Nausea/vomiting - resolved. Diarrhea Gastritis Diverticulosis Internal and external hemorrhoids Hiatal hernia Elevated lipase On tube feeds-Nepro@ 40ml/hr 02/27 CT chest/abdomen and pelvis - 9.4 x 7.5 renal and 16 x 12 cm right psoas muscle hematoma. Fluid around liver and spleen. Right-sided nephrolithiasis CTA abdomen 02/28 - possible blushing around iliac/lumbar vessels Discussed with IR. s/p attempted embolization CT abdomen and pelvis 02/10 atrophic left kidney. Bilateral inguinal hernias fat- containing. Nonobstructing 12 mm right kidney stone repeat CT abd/pelvis did not show evidence of obstruction. patient clinically has been having diarrhea (c. diff negative 02/19). also with nausea/vomiting of unclear etiology. EGD/Colonoscopy-02/22/17 showed gastritis esophagitis, hiatal hernia, diverticulosis and multiple polyps in descending colon and sigmoid which were snared biopsied. Biopsy pending Status post PEG tube placement Lansoprazole 30 mg twice a day for GI prophylaxis FEN/RENAL: Acute kidney injury in the setting of Chronic kidney disease stage 3-4 History of uric acid kidney stones with prior stent BPH Nonfunctioning left kidney Monitor renal function, electrolytes replacement as needed Cr: 2.14 Renal is following- Dr. Liao. On Lasix 20mg Q12, IV Albumin RIOS/SPEP negative. 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 Recommended nephrostomy tube if obstruction Nephrology consulted, off hemodialysis. Making urine. ICU electrolyte replacement protocol Last IHD was 03/22 ID: Septic shock- resolved. Abscess and Suppurative thrombophlebitis left upper extremity MSSA bacteremia Klebsiella UTI ESBL positive Acute aspiration pneumonia/HCAP 04/27 Sputum cx: Pseudomonas, Urine cx: Ivania Bustillo , BC: 05/24 bottles: Coag negative staph likely contaminant 12 BC: NGTD Previously treated with Bactrim, ertapenem, intermittent vancomycin, nafcillin Blood cultures 2, UA ESBL positive Klebsiella UTI Sputum 03/14 - Pseudomonas came back resistant to imipenem, Stenotrophomonas maltophilia Antibiotics per ID. on Tobra nebs, PO Vanco and Diflucan, Zerbaxa, ID is following. C-diff PCR negative wound service is following. stage IV sacral ulcer, ulcer right ankle/LE HEME: Acute blood loss anemia DVT, bilateral posterior tibial vein, IVC filter Septic thrombophlebitis with occlusive thrombus mid cephalic and basilic vein side Monitor CBC s/p transfusion 2units PRBC ( 04/26) Received 10 PRBC, 14 FFP, 2 platelets, 1 cryo-02/28 Received 3 units PRBCs Ultrasound 01/23/17 - Bilateral lower extremity with occlusive posterior tibial vein DVTs. Heparin was initially started for DVT but was placed on hold due to LP with suspected traumatic tap. Currently holding full anticoagulation with enoxaparin 100 mg IV twice a day due to anemia as of 02/26 IVC filter was placed 01/25/17. Ultrasound LUE 02/10 occlusive thrombus mid cephalic vein, basilic vein.s. Transfuse 3 units PRBCs 02/27 Transfuse 2 units PRBCs 03/01. Transfused 1 unit PRBCs on 03/14 ENDO: Diabetes mellitus Hypoglycemia History of prior adrenal insufficiency with shock Gout Accu-Cheks to maintain euglycemia Novulin R every 4 hours. Low Regimen MSK: Right distal ulna fracture. Recommended nonoperative management. PROPH: Lansoprazole 30 mg twice a day twice a day for stress ulcer prophylaxis. Has IVC filter. Therapeutic enoxaparin was placed on hold for retroperitoneal hematoma ACCESS: Right subclavian CVP placed 04/27 Level 3 Problem Qualifiers (1) Aspiration pneumonia: (2) DVT (deep venous thrombosis): Qualified Codes: I82.443 - Acute embolism and thrombosis of tibial vein, bilateral (3) Acute renal failure: Qualified Codes: N17.9 - Acute kidney failure, unspecified (4) Diabetes mellitus: (5) Gout: Hood Madera MD May 02, 2017 10:25
--- NOTE | 2017-05-02 10:32 | HHI.IDPN ---
Subjective Subjective Remarks Patient is a 62-year-old male, admitted to the hospital for evaluation of pain in his right wrist. He gave a history of falling about a week ago and apparently had immediate pain in the right wrist. He did not seek any medical attention initially because reportedly he was very busy. He eventually presented, and he was found to have a distal ulnar fracture on plain films. He also had some redness and swelling. Orthopedics saw the patient, and was being treated conservatively with the splint. During this hospitalization also he started complaining of generalized weakness but more so in his lower extremity than his upper extremity. He had swelling in both lower extremity which revealed evidence of DVT in the posterior tibial veins. Neurology had seen the patient and he underwent lumbar puncture which apparently was traumatic. Patient was therefore not given anticoagulation because of the traumatic LP, and he underwent placement of an IVC filter on January 25. Patient had another lumbar puncture on February 01. He was felt to have transverse myelitis, and he was given high-dose IV Solu-Medrol from January 27 to February 02. There was apparently some improvement in his weakness. The imaging studies done for his weakness showed some spinal stenosis, and neurosurgery was consult that and recommended that there was no surgical intervention to be done. Patient has been stabilizing, but last night apparently deteriorated, and he ended up getting intubated, and had significant hypotension requiring pressors. There was also an ultrasound done of his left upper extremity which showed DVT, and there was evidence of superior 2 thrombophlebitis. Vascular surgery was consult to it and he had IND on his left upper extremity. Patient has had some fevers since yesterday. 2 blood cultures were done yesterday and they're now reported as growing gram-positive cocci in [place] in clusters. He is currently sedated and intubated. He is on Levophed and vasopressin. A central line was placed as well as a femoral a line. He apparently had an IV in his left upper extremity and that was removed yesterday. Patient also has history of chronic kidney disease, and nephrology evaluated the patient. He was just being monitored for his renal insufficiency. Reconsulted 04/12 for low grade fever, leucocytosis, worsening CXR concern for new pneumonia. Notes reviewed Low grade temps overnight Had debridement of sacral wound yesterday On the vent Has thick, moderate, baker secretions needing frequent suctioning. Sputum with MDR PSAE UC with yeast One BC with Staph epi WBC elevated at 25 CXR reviewed with left base effusion and left side haziness. C diff negative Antibiotics Current Medications Diflucan Tobra nebs - finished 04/30 Zerbaxa Medications (Trade) Dose Ordered Sig/Rosalia Route Start Time Stop Time Status Last Admin (NS Flush) 2 ml UNSCH PRN IV FLUSH 01/23/17 00:30 04/27/17 09:22 (NS Flush) 2 ml BID IV FLUSH 01/23/17 09:00 05/02/17 09:34 (Zofran Inj) 4 mg Q6H PRN IVP 01/23/17 00:30 02/26/17 17:23 (Narcan Inj) 0.4 mg UNSCH PRN IV 01/23/17 00:30 (Edna-Colace) 1 tab BID PO 01/23/17 09:00 Future Hold 02/24/17 20:31 (Dulcolax Supp) 10 mg DAILY PRN RECTAL 01/23/17 00:30 (Lipitor) 10 mg HS PO 01/24/17 21:00 Future hold 05/01/17 21:00 (Glucagon Inj) 1 mg UNSCH PRN OTHER 02/11/17 05:45 02/18/17 18:53 (Flomax) 0.4 mg Q12HR PO 02/17/17 15:00 Future hold 05/02/17 09:34 (Lovenox Inj) 100 mg Q12H SQ 02/18/17 12:00 Future Hold 02/26/17 16:20 (Lactinex) 1 tab TID PO 02/19/17 13:00 05/02/17 09:34 (D50w (Vial) Inj) 25 ml UNSCH PRN IV PUSH 02/20/17 12:45 03/27/17 13:20 (Questran Light Pkt) 4 gm Q12HR PO 02/25/17 21:00 Future Hold 02/27/17 10:32 (Aldactone) 25 mg DAILY PO 02/27/17 09:00 Future Hold (Peridex 0.12% Liq) 15 ml BID@08,20 MT 02/28/17 08:00 05/01/17 20:59 (NS Flush) UNSCH PRN IV FLUSH 03/01/17 13:00 (Heparin Inj) UNSCH PRN IV FLUSH 03/01/17 13:00 (NS Flush) DAILY IV FLUSH 03/04/17 09:00 05/01/17 07:54 (NS Flush) UNSCH PRN IV FLUSH 03/03/17 18:45 (Prevacid Odt) 30 mg BID NG 03/07/17 21:00 05/02/17 09:34 (Tylenol 650 Mg/ 20 ml Liq) 650 mg Q6H PRN PO 03/09/17 10:15 04/30/17 12:01 (Tenormin) 25 mg Q12HR PO 03/12/17 10:00 Future Hold 04/18/17 10:09 (Epogen Inj) 10,000 units UNSCH PRN IV PUSH 03/17/17 11:30 03/22/17 10:52 (Nitroglycerin 2% Oint) 2 inch Q6H PRN TOPICAL 03/23/17 14:00 03/29/17 01:20 (Norvasc) 10 mg DAILY PO 03/28/17 09:00 Future Hold 04/19/17 08:16 (Roxicodone Intensol Liq) 5 mg Q4H PO 04/01/17 18:00 05/02/17 09:34 (NovoLOG INJ) 5 units TIDAC SQ 04/03/17 17:00 Future Hold 04/10/17 08:00 (Xanax) 0.125 mg Q6H PRN PO 04/03/17 22:30 04/25/17 14:27 (Pill Splitter) 1 ea UNSCH PRN OTHER 04/03/17 22:45 (Levsin Liq) 0.125 mg Q4H PRN G-TUBE 04/06/17 15:00 04/12/17 10:09 (Questran 4 Gm Pkt) 4 gm Q12HR G-TUBE 04/08/17 21:00 05/02/17 09:33 (SEROquel) 25 mg DAILY PO 04/09/17 09:00 05/02/17 09:34 (Santyl Oint) 1 applic DAILY TOPICAL 04/10/17 09:00 05/02/17 09:00 (Cortef) 10 mg Q12H PO 04/10/17 18:00 05/02/17 05:52 (Lasix Inj) 40 mg BID@09,18 IV PUSH 04/12/17 18:00 Future Hold 04/19/17 17:15 (Duoneb Neb) 1 ampule Q2HR NEB PRN NEB 04/12/17 17:00 05/02/17 04:45 (Lopressor Inj) 2.5 mg Q6H PRN IV PUSH 04/23/17 01:15 04/23/17 09:36 (NovoLOG SUPPLEMENTAL SCALE) 1 Q6H SQ 04/27/17 18:00 05/02/17 02:33 (Diflucan) 200 mg DAILY PO 04/29/17 14:00 05/02/17 09:34 Ceftolozane/ Tazobactam 1500 mg/Sodium Chloride 100 ml @ 100 mls/hr Q8H IV 04/29/17 14:00 05/02/17 05:51 Albumin Human 100 ml @ 60 mls/hr Q12H IV 04/30/17 17:00 05/02/17 05:51 (Lasix Inj) 20 mg Q12H IV PUSH 04/30/17 18:00 05/02/17 05:50 Medications (Trade) Dose Ordered Sig/Rosalia Route Start Time Stop Time Status Last Admin (NS Flush) 2 ml UNSCH PRN IV FLUSH 01/23/17 00:30 04/27/17 09:22 (NS Flush) 2 ml BID IV FLUSH 01/23/17 09:00 05/01/17 07:53 (Zofran Inj) 4 mg Q6H PRN IVP 01/23/17 00:30 02/26/17 17:23 (Narcan Inj) 0.4 mg UNSCH PRN IV 01/23/17 00:30 (Edna-Colace) 1 tab BID PO 01/23/17 09:00 Future Hold 02/24/17 20:31 (Dulcolax Supp) 10 mg DAILY PRN RECTAL 01/23/17 00:30 (Lipitor) 10 mg HS PO 01/24/17 21:00 Future hold 04/30/17 20:41 (Glucagon Inj) 1 mg UNSCH PRN OTHER 02/11/17 05:45 02/18/17 18:53 (Flomax) 0.4 mg Q12HR PO 02/17/17 15:00 Future hold 05/01/17 07:53 (Lovenox Inj) 100 mg Q12H SQ 02/18/17 12:00 Future Hold 02/26/17 16:20 (Lactinex) 1 tab TID PO 02/19/17 13:00 05/01/17 07:53 (D50w (Vial) Inj) 25 ml UNSCH PRN IV PUSH 02/20/17 12:45 03/27/17 13:20 (Questran Light Pkt) 4 gm Q12HR PO 02/25/17 21:00 Future Hold 02/27/17 10:32 (Aldactone) 25 mg DAILY PO 02/27/17 09:00 Future Hold (Peridex 0.12% Liq) 15 ml BID@08,20 MT 02/28/17 08:00 05/01/17 07:54 (NS Flush) UNSCH PRN IV FLUSH 03/01/17 13:00 (Heparin Inj) UNSCH PRN IV FLUSH 03/01/17 13:00 (NS Flush) DAILY IV FLUSH 03/04/17 09:00 05/01/17 07:54 (NS Flush) UNSCH PRN IV FLUSH 03/03/17 18:45 (Prevacid Odt) 30 mg BID NG 03/07/17 21:00 05/01/17 07:53 (Tylenol 650 Mg/ 20 ml Liq) 650 mg Q6H PRN PO 03/09/17 10:15 04/30/17 12:01 (Tenormin) 25 mg Q12HR PO 03/12/17 10:00 Future Hold 04/18/17 10:09 (Epogen Inj) 10,000 units UNSCH PRN IV PUSH 03/17/17 11:30 03/22/17 10:52 (Nitroglycerin 2% Oint) 2 inch Q6H PRN TOPICAL 03/23/17 14:00 03/29/17 01:20 (Norvasc) 10 mg DAILY PO 03/28/17 09:00 Future Hold 04/19/17 08:16 (Roxicodone Intensol Liq) 5 mg Q4H PO 04/01/17 18:00 05/01/17 05:35 (NovoLOG INJ) 5 units TIDAC SQ 04/03/17 17:00 Future Hold 04/10/17 08:00 (Xanax) 0.125 mg Q6H PRN PO 04/03/17 22:30 04/25/17 14:27 (Pill Splitter) 1 ea UNSCH PRN OTHER 04/03/17 22:45 (Levsin Liq) 0.125 mg Q4H PRN G-TUBE 04/06/17 15:00 04/12/17 10:09 (Questran 4 Gm Pkt) 4 gm Q12HR G-TUBE 04/08/17 21:00 05/01/17 07:53 (SEROquel) 25 mg DAILY PO 04/09/17 09:00 05/01/17 07:53 (Santyl Oint) 1 applic DAILY TOPICAL 04/10/17 09:00 05/01/17 07:54 (Cortef) 10 mg Q12H PO 04/10/17 18:00 04/30/17 20:37 (Lasix Inj) 40 mg BID@09,18 IV PUSH 04/12/17 18:00 Future Hold 04/19/17 17:15 (Duoneb Neb) 1 ampule Q2HR NEB PRN NEB 04/12/17 17:00 04/30/17 19:36 (VANCOMYCIN for oral use only) 125 mg Q6H PO 04/21/17 21:00 05/01/17 23:00 05/01/17 07:53 (Lopressor Inj) 2.5 mg Q6H PRN IV PUSH 04/23/17 01:15 04/23/17 09:36 (NovoLOG SUPPLEMENTAL SCALE) 1 Q6H SQ 04/27/17 18:00 04/30/17 23:56 (Diflucan) 200 mg DAILY PO 04/29/17 14:00 05/01/17 07:53 Ceftolozane/ Tazobactam 1500 mg/Sodium Chloride 100 ml @ 100 mls/hr Q8H IV 04/29/17 14:00 05/01/17 05:34 Albumin Human 100 ml @ 60 mls/hr Q12H IV 04/30/17 17:00 05/01/17 02:52 (Lasix Inj) 20 mg Q12H IV PUSH 04/30/17 18:00 05/01/17 05:34 Lines Central line - 04/27 Past Medical History Reviewed Allergies: Coded Allergies: levofloxacin (Verified Allergy, Severe, 01/22/17) Objective . Vital Signs Date Time Temp Pulse Resp B/P (MAP) Pulse Ox O2 Delivery O2 Flow Rate FiO2 05/02/17 08:16 97 35 05/02/17 06:00 119 05/02/17 04:33 98 40 05/02/17 04:00 111 05/02/17 04:00 100 Mechanical Ventilator 40 05/02/17 04:00 99.9 111 23 126/73 (90) 98 05/02/17 04:00 40 05/02/17 02:00 108 05/02/17 00:21 98 40 05/02/17 00:00 99.5 109 20 108/60 (76) 98 05/02/17 00:00 100 Mechanical Ventilator 40 05/02/17 00:00 109 05/02/17 00:00 40 05/01/17 22:00 112 05/01/17 20:08 100 40 05/01/17 20:00 109 05/01/17 20:00 100 Mechanical Ventilator 40 05/01/17 20:00 100.1 109 26 115/59 (77) 97 05/01/17 20:00 40 05/01/17 18:00 112 05/01/17 16:00 98 Mechanical Ventilator 40 05/01/17 16:00 40 05/01/17 16:00 98.3 106 21 111/61 (78) 98 05/01/17 16:00 106 05/01/17 15:03 98 40 05/01/17 14:00 104 05/01/17 12:01 97 40 05/01/17 12:00 98.4 107 17 108/63 (78) 98 05/01/17 12:00 107 05/01/17 12:00 40 05/01/17 12:00 98 Mechanical Ventilator 40 . Laboratory Tests Test 05/01/17 04:45 05/02/17 05:15 White Blood Count 24.6 TH/MM3 22.5 TH/MM3 Red Blood Count 3.06 MIL/MM3 2.98 MIL/MM3 Hemoglobin 8.3 GM/DL 8.0 GM/DL Hematocrit 26.5 % 25.5 % Mean Corpuscular Volume 86.6 FL 85.4 FL Mean Corpuscular Hemoglobin 27.2 PG 26.8 PG Mean Corpuscular Hemoglobin Concent 31.4 % 31.4 % Red Cell Distribution Width 17.6 % 17.2 % Platelet Count 269 TH/MM3 263 TH/MM3 Mean Platelet Volume 7.7 FL 7.8 FL Neutrophils (%) (Auto) 74.5 % 71.7 % Lymphocytes (%) (Auto) 7.6 % 7.8 % Monocytes (%) (Auto) 6.9 % 5.7 % Eosinophils (%) (Auto) 10.7 % 14.5 % Basophils (%) (Auto) 0.3 % 0.3 % Neutrophils # (Auto) 18.4 TH/MM3 16.1 TH/MM3 Lymphocytes # (Auto) 1.9 TH/MM3 1.8 TH/MM3 Monocytes # (Auto) 1.7 TH/MM3 1.3 TH/MM3 Eosinophils # (Auto) 2.6 TH/MM3 3.3 TH/MM3 Basophils # (Auto) 0.1 TH/MM3 0.1 TH/MM3 CBC Comment AUTO DIFF AUTO DIFF Differential Total Cells Counted 100 100 Neutrophils % (Manual) 59 % 49 % Band Neutrophils % 10 % 9 % Lymphocytes % 4 % 12 % Monocytes % 3 % 2 % Eosinophils % 12 % 14 % Neutrophils # (Manual) 19.9 TH/MM3 16.2 TH/MM3 Metamyelocytes 6 % 8 % Myelocytes 6 % 6 % Differential Comment FINAL DIFF MANUAL FINAL DIFF MANUAL Platelet Estimate NORMAL NORMAL Platelet Morphology Comment NORMAL NORMAL Laboratory Tests Test 05/01/17 04:45 05/01/17 19:30 05/02/17 05:15 Blood Urea Nitrogen 68 MG/DL 68 MG/DL Creatinine 2.21 MG/DL 2.14 MG/DL Random Glucose 190 MG/DL 130 MG/DL Calcium Level 9.8 MG/DL 9.6 MG/DL Phosphorus Level 4.7 MG/DL Magnesium Level 1.8 MG/DL Sodium Level 145 MEQ/L 145 MEQ/L Potassium Level 4.8 MEQ/L 4.3 MEQ/L Chloride Level 111 MEQ/L 111 MEQ/L Carbon Dioxide Level 24.4 MEQ/L 26.9 MEQ/L Anion Gap 10 MEQ/L 7 MEQ/L Estimat Glomerular Filtration Rate 30 ML/MIN 31 ML/MIN Albumin 1.7 GM/DL Prealbumin 5 MG/DL Microbiology Date/Time Source Procedure Growth Status 04/29/17 14:02 Blood Peripheral Aerobic Blood Culture - Preliminary NO GROWTH IN 2 DAYS Resulted 04/29/17 14:02 Blood Peripheral Anaerobic Blood Culture - Preliminary NO GROWTH IN 2 DAYS Resulted 04/29/17 11:50 Blood Line Aerobic Blood Culture - Preliminary NO GROWTH IN 2 DAYS Resulted 04/29/17 11:50 Blood Line Anaerobic Blood Culture - Preliminary NO GROWTH IN 2 DAYS Resulted 05/01/17 11:30 Wound Other Gram Stain - Final Resulted 05/01/17 11:30 Wound Other Wound Culture Pending Resulted Imaging Chest X-Ray 04/27/17 0600 Signed Impressions: Service Date/Time: Thursday, April 27, 2017 05:19 - CONCLUSION: Improved aeration. Cornel Harrison MD Chest X-Ray 04/26/17 0000 Signed Impressions: Service Date/Time: April 23:35 - CONCLUSION: Right central venous catheter placement. Worsening appearance of the chest. Cornel Harrison MD Chest X-Ray 04/17/17 0000 Signed Impressions: Service Date/Time: Monday, April 17, 2017 03:40 - CONCLUSION: Mild left effusion and possible accompanying atelectasis or consolidation at the left base Angelo Manzo MD Thoracentesis 04/13/17 1054 Signed Impressions: Service Date/Time: Thursday, April 13, 2017 15:26 - CONCLUSION: Uncomplicated CT-guided right thoracentesis. Candido Mendoza Jr., MD Chest CT 04/12/17 1558 Signed Impressions: Service Date/Time: March 17:51 - CONCLUSION: 1. Slight increase in size of bilateral effusions and basilar atelectasis, left greater than right compared with February 27. Tracheostomy in good position. Trace Holloway MD Renal Ultrasound 04/02/17 0000 Signed Impressions: Service Date/Time: Sunday, April 02, 2017 16:59 - CONCLUSION: Limited exam with the left kidney being unable to be evaluated in the bladder not distended. There do appear to be multiple shadowing stones at the right kidney without hydronephrosis. Angelo Manzo MD Wrist X-Ray 03/27/17 0000 Signed Impressions: Service Date/Time: Monday, March 27, 2017 13:21 - CONCLUSION: 1. No acute fracture is identified. A portion of the previously documented distal ulna fracture remains visualized. 2. 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 Angelo Allen MD Aortography 02/28/17 0000 Signed Impressions: Service Date/Time: Tuesday, February 28, 2017 08:01 - CONCLUSION: 1. Active hemorrhage from distal right lateral sacral and iliolumbar branches successfully coil and Gelfoam embolized, as above. Juan Bhakta MD Abdomen/Pelvis CT 02/28/17 0000 Signed Impressions: Service Date/Time: Tuesday, February 28, 2017 06:51 - CONCLUSION: 1. The right retroperitoneal hematoma has increased in size, as above. There are 2 serpiginous arterially enhancing structures visualized, one in the right psoas muscle and another extending into the hematoma at the right iliac fossa. These could represent sites of continued active bleeding. 2. Stable moderate size left and small right pleural effusion with associated compressive atelectasis. 3. Stable small volume of free fluid in the abdomen and pelvis. There is also anasarca. The findings concerning the retroperitoneal hematoma were discussed with Dr. Aguiar via telephone at approximately 7: 10 AM on 02/28/2017. Angelo Allen MD Abdomen X-Ray 02/26/17 0000 Signed Impressions: Service Date/Time: Sunday, February 26, 2017 14:52 - CONCLUSION: 1. Nonobstructive bowel gas pattern. Juan Bhakta MD Upper Extremity Ultrasound 02/10/17 0000 Signed Impressions: Service Date/Time: Friday, February 10, 2017 18:46 - CONCLUSION: Occlusive thrombus in the cephalic and basilic veins. Benjamin Person MD Lung Scan- Nuclear Medicine 02/10/17 0000 Signed Impressions: Service Date/Time: Friday, February 10, 2017 22:17 - CONCLUSION: Low probability pulmonary embolism. Candido Patton MD Head CT 02/10/17 0000 Signed Impressions: Service Date/Time: Friday, February 10, 2017 23:51 - CONCLUSION: Negative noncontrast CT brain. Candido Patton MD Lumbar Puncture Fluoroscopy 02/01/17 0000 Signed Impressions: Service Date/Time: January 09:35 - CONCLUSION: Uncomplicated fluoroscopically guided lumbar puncture. CSF was clear. Nabeel Peralta MD Head Magnetic Resonance Angiography 01/27/17 Signed Impressions: Service Date/Time: Friday, January 27, 2017 10:33 - CONCLUSION: No intracranial vascular abnormality is identified. There is no aneurysm visualized. Angelo Allen MD IVC Filter Placement X-Ray 01/25/17 Signed Impressions: Service Date/Time: January 10:29 - CONCLUSION: Uncomplicated inferior vena cava filter placement as above. Yung Fowler MD Thoracic Spine MRI 01/24/17 Signed Impressions: Service Date/Time: Tuesday, January 24, 2017 22:29 - CONCLUSION: 1. Mild degenerative spondylosis most prominently at T11-L1 with slight effacement of the anterior thecal sac and left lateral recess. No significant neural foraminal stenosis. 2. No acute fracture. Juan Bhakta MD Lumbar Spine MRI 01/23/17 Signed Impressions: Service Date/Time: Monday, January 23, 2017 17:01 - CONCLUSION: 1. At L4-5 is a broad-based disc protrusion with severe central canal and lateral recess stenosis and flattening of the exiting right L4 nerve root. 2. L5-S1 there is a disc protrusion and moderate stenosis with flattening of the exiting L5 nerve roots bilaterally. 3. At L3-4 there is a moderate to severe central stenosis and lateral recess stenosis with mild foraminal stenosis. 4. No acute fracture or spondylolisthesis. Trace Holloway MD Lower Extremity Ultrasound 01/23/17 Signed Impressions: Service Date/Time: Monday, January 23, 2017 09:53 - CONCLUSION: Bilateral focal lower extremity DVT involving the posterior tibial veins. Angelo Garrido MD Cervical Spine MRI 01/23/17 Signed Impressions: Service Date/Time: Monday, January 23, 2017 17:01 - CONCLUSION: 1. Multilevel cervical spine degenerative changes as above. 2. Mild degrees of spinal stenosis at C3/C4-C6/C7. No cord compression or cord signal abnormality. 3. Age indeterminate left paracentral/foraminal disc protrusion at C6/C7. 4. Multilevel foraminal stenosis, most severe on the left at C6/C7. Please see individual levels above. 5. No fracture or subluxation of the cervical spine. Angelo Garirdo MD Brain MRI 01/23/17 0000 Signed Impressions: Service Date/Time: Monday, January 23, 2017 17:01 - CONCLUSION: 1. No acute stroke or other acute intracranial abnormality demonstrated. 2. Moderate severity chronic white matter changes, nonspecific but most likely related to chronic small vessel disease. 3. Few scattered tiny lacunar infarcts of the brainstem. 4. Given the findings are not entirely specific, clinical evaluation for possible multiple sclerosis recommended. Angelo Garrido MD Knee X-Ray [id number] Signed Impressions: Service Date/Time: Sunday, January 22, 2017 21:17 - CONCLUSION: 1. Evidence of moderate to large joint effusion. 2. No acute fracture or malalignment. 3. Mild 3 compartment osteoarthritic change. Benjamin Person MD Hip and Pelvis X-Ray [id number] Signed Impressions: Service Date/Time: Sunday, January 22, 2017 21:10 - CONCLUSION: 1. Mild to moderate degenerative change of both hips with no acute fracture or malalignment. There is flattening and remodeling of the right humeral head. Benjamin Person MD Physical Exam GENERAL: Looks comfortable on the vent. SKIN: Cool and dry. No generalized rash. Edematous in extremities. EYES: Gila conjunctiva. No petechia or hemorrhage. EARS, NOSE AND THROAT: Nose without bleeding or purulent nasal discharge. Dry oral mucosa NECK: Trach site ok. CARDIOVASCULAR: Regular rate and rhythm. Soft heart sounds. No murmurs RESPIRATORY: Coarse BS bilaterally, decreased at bases. ABDOMEN: Soft, not tender, distended, PEG site ok. No guarding rectal tube in place with small amount of liquid stool EXTREMITIES: No clubbing, cyanosis. Edema +++. Dressing on R leg wound with lots of drainage. Generalized anasarca. NEUROLOGICAL: sedated PSYCHIATRIC: unable to assess LINE: Lines with no evidence of infection Assessment & Plan Remarks IMPRESSION Recurrent respiratory failure, ?plugging, PNA - last CXR better New Sepsis (fever and leucocytosis), temps up again x 1, and WBC still elevated Aspiration Pneumonia in health care setting. Mucus plugs with atelectasis. Leucocytosis, persistent, but decreasing ESBL in urine in recent past. 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 PNA, ?plugging/atelctasis - MDR, I to Zerbaxa, has been tolerating T-piece - likely effusion adding to his respiratory problems, on top of his plugging /secretions Large R retroperitoneal bleed, S/P multiple transfusions and S/P coiling of bleeders Anemia, due to bleed, retroperitoneal MSSA sepsis, due to suppurative thrombophlebitis LUE, S/P I and D and excision of portion of cephalic vein - S/P Rx Respiratory failure, has had several intubations - reintubated again 02/28, extubated 03/11 - reintubated again - S/P trach 03/14 Rx 7 days high dose solumedrol for transverse myelitis Wu LE DVT has IVC filter placed 01/25 - ?hypercoagulable state Chronic kidney disease, worsening creatinine - shock and compression of ureter by hematoma Known DM, HTN Diarrhea, C.diff negative RECOMMENDATION Continue Zerbaxa IV (ASP: recently treated for MDR PSAE and now with GNR in sputum and s.o new infection) Continue Diflucan with higher dose as patient has C.glabrata which needs higher urinary levels to be effectively treated. Sloan changed on 04/24/17. CL new from 04/27/2017. - Less likely to be CLABSI. Suspect GPC is a contaminant. Await ID and repeat BCX results. Follow temps Follow CBC Monitor progress Weaning per CCM Irene Edwards MD May 02, 2017 10:32
--- NOTE | 2017-05-02 10:34 | HHI.NPPN ---
Subjective History of Present Illness 61-year-old with history of urinary stone patient again got unstable has recurrent bouts of ICU admission requiring ventilation and respiratory care started having scrotal swelling and acute renal failure again, he had mild hyperkalemia and this was treated I have been reconsulted again Additional Remarks Patient had trach on vent, not in distress. Review of Systems General Constitutional: Fatigue Objective Data Data Vital Signs Date Time Temp Pulse Resp B/P (MAP) Pulse Ox O2 Delivery O2 Flow Rate FiO2 05/02/17 08:16 97 35 05/02/17 06:00 119 05/02/17 04:33 98 40 05/02/17 04:00 111 05/02/17 04:00 100 Mechanical Ventilator 40 05/02/17 04:00 99.9 111 23 126/73 (90) 98 05/02/17 04:00 40 05/02/17 02:00 108 05/02/17 00:21 98 40 05/02/17 00:00 99.5 109 20 108/60 (76) 98 05/02/17 00:00 100 Mechanical Ventilator 40 05/02/17 00:00 109 05/02/17 00:00 40 05/01/17 22:00 112 05/01/17 20:08 100 40 05/01/17 20:00 109 05/01/17 20:00 100 Mechanical Ventilator 40 05/01/17 20:00 100.1 109 26 115/59 (77) 97 05/01/17 20:00 40 05/01/17 18:00 112 05/01/17 16:00 98 Mechanical Ventilator 40 05/01/17 16:00 40 05/01/17 16:00 98.3 106 21 111/61 (78) 98 05/01/17 16:00 106 05/01/17 15:03 98 40 05/01/17 14:00 104 05/01/17 12:01 97 40 05/01/17 12:00 98.4 107 17 108/63 (78) 98 05/01/17 12:00 107 05/01/17 12:00 40 05/01/17 12:00 98 Mechanical Ventilator 40 -: 05/02/17 0515 05/02/17 0515 Microbiology 05/01/17 Gram Stain - Final, Resulted 05/01/17 Wound Culture, Resulted Pending Physical Exam General Appearance: Pale Eyes Eye Exam: Pupils Equal Throat Throat Exam: Oral Mucosa Goulds & Moist Neck Neck Exam: Neck Supple Pulmonary Resp Exam: Clear Bilaterally Cardiology CV Exam: Normal Sinus Rhythm Gastrointestinal/Abdomen GI Exam: Non-Tender, Distended Genitourinary Exam: Flank Non-Tender (scrotal edema) Extremeties Extremities Exam: Moderate Edema, Pitting Edema Neurologic Neuro Exam: Awake Assessment/Plan Problem List: (1) Acute renal failure ICD Codes: N17.9 - Acute kidney failure, unspecified Status: Acute Plan: Patient with pneumonia as, sepsis, acute renal failure Had pneumonia, developed sepsis with ARF again creatinine declined slightly post hydration he also had retroperitoneal bleed Pseudomonas in sputum, with colonized airway 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 Patient had been on dialysis earlier in hospitalization. He again has prerenal azotemia and respiratory failure, we will try albumin with Lasix again ON Lasix 20 mg IV every 12 follow kidney functions non oliguric ATN from sepsis UOP 2.1 L He has multiple infections and pneumonia (2) CKD (chronic kidney disease) stage 3, GFR 30-59 ml/min ICD Codes: N18.3 - Chronic kidney disease, stage 3 (moderate) Status: Chronic Plan: Ultrasound revealed chronic kidney disease there is no kidney stones (3) Diabetes ICD Codes: E11.9 - Type 2 diabetes mellitus without complications Plan: Continue to monitor (4) Distal end of ulna fracture, closed ICD Codes: S52.609A - Unspecified fracture of lower end of unspecified ulna, initial encounter for closed fracture Status: Acute Plan: Orthopedic is following Problem Qualifiers (1) Acute renal failure: Qualified Codes: N17.9 - Acute kidney failure, unspecified Laura Liao MD May 02, 2017 10:34
[2017-05-02] MEDS: METOPROLOL TARTRATE 25 MG TAB PO SCH ×2 (11:24→21:53)
[2017-05-02] MEDS: ATORVASTATIN 10 MG TAB PO SCH (21:53)
[2017-05-03] VITALS (18 sets, daily range): BP systolic 101–117; BP diastolic 52–59; PULSE 89–101; RESP 22–23; TEMP 97.6–98.5; O2SAT 95–100
[2017-05-03] MEDS: oxyCODONE HCL ORAL CONC 5 MG/0.25 ML SYRINGE PO SCH ×6 (01:37→20:06)
[2017-05-03] MEDS: INSULIN ASPART SUPPLEMENTAL SCALE SQ SCH ×4 (01:38→17:24)
[2017-05-03] MEDS: ALBUMIN 25% INJ 100 ML IV SCH ×2 (05:56→17:20)
[2017-05-03] MEDS: FUROSEMIDE 20 MG/2 ML VIAL IV PUSH SCH ×2 (05:57→17:21)
[2017-05-03] MEDS: HYDROCORTISONE 10 MG TAB PO SCH ×2 (05:57→17:20)
[2017-05-03] MEDS: CEFTOLOZANE-TAZOBACTAM INJ 1,500 MG in SODIUM CHLORIDE 0.9% INJ 100 ML IV SCH ×3 (05:57→20:06)
[2017-05-03 07:14] LABS: AUTOMATED NEUTROPHIL # 15.4 TH/MM3 (1.8-7.7); BASOPHIL % 0.1 % (0.0-2.0); EOSINOPHIL # 2.4 TH/MM3 (0-0.4); EOSINOPHIL % 11.5 % (0.0-4.0); HEMATOCRIT 24.1 % (39.0-51.0); LYMPH % 6.5 % (9.0-44.0); LYMPHOCYTE # 1.3 TH/MM3 (1.0-4.8); MEAN CELL VOLUME 85.9 FL (80.0-100.0); MEAN CORPUSCULAR HEMOGLOBIN 27.5 PG (27.0-34.0); MEAN CORPUSCULAR HGB CONC 32.1 % (32.0-36.0); MONO % 6.7 % (0.0-8.0); NEUT % 75.2 % (16.0-70.0); PLATELET COUNT 192 TH/MM3 (150-450); RED BLOOD COUNT 2.81 MIL/MM3 (4.50-5.90); RED CELL DISTRIBUTION WIDTH 17.8 % (11.6-17.2); WHITE BLOOD COUNT 20.5 TH/MM3 (4.0-11.0)
[2017-05-03 07:20] LABS: BICARBONATE 25.5 MEQ/L (21.0-32.0); POTASSIUM 3.6 MEQ/L (3.5-5.1)
[2017-05-03 07:25] LABS: HEMO FLAGS AUTO DIFF
[2017-05-03 08:21] LABS: BANDS 9 % (0-6); EOSINOPHILS 5 % (0-4); METAMYELOCYTES 5 % (0-1); MYELOCYTES 9 % (0-0); NEUTROPHIL # MANUAL DIFF 15.4 TH/MM3 (1.8-7.7); PLATELET ESTIMATE SMEAR NORMAL (NORMAL); PLATELET MORPHOLOGY NORMAL (NORMAL); POLYS (SEG NEUTROPHILS) 52 % (16-70); SCAN/DIFF FINAL DIFF MANUAL; WBC DIFF SAMPLE 100
[2017-05-03] MEDS: FREE WATER G-TUBE SCH ×3 (09:45→20:07)
--- NOTE | 2017-05-03 09:50 | HHI.CCPN ---
Subjective Remarks/Hospital Course Date of admission: 01/22 Date of critical care medicine consult 02/10 due to acute hypoxemic respiratory failure requiring emergent intubation 62-year-old male with a past medical history of hypertension, hyperlipidemia, diabetes mellitus, gout, uric acid kidney stones, kidney disease of unknown stage who originally presented to [facility] emergency department on 01/22 after a fall in which he sustained a right distal ulna fracture. He had been experiencing a gradual primarily lower extremity weakness as well as upper extremity weakness that was progressive. Neurology consult was obtained. MRI revealed no acute stroke. He had multifocal white matter changes. Tiny lacunar infarcts of the brainstem. Lumbar MRI report states L4-L5 disc protrusion with cetnral canal stenosis. Dr. Blackwell evaluated and states no cord compression on MRI C/T spine and recommended nonoperative management. Symptoms were felt to be consistent with transverse myelitis and he underwent Solumedrol 250 mg IV q6 hours 01/27-02/02. He also was found to have occlusive thrombus in the bilateral posterior tibial veins. Heparin was being avoided because he had traumatic lumbar puncture on 01/26 and 02/01. IVC filter was placed 01/25. He was undergoing physical therapy, reportedly making some improvements with plan to eventually discharged home with his son (max assist standing, and bed to chair per PT note). Apparently he had some vomiting the evening of 02/09 and additional vomiting on 02/10. He had a fever 102.8 on 02/09. Last recorded bowel movement was 02/03. Tonight he had acute onset of severe hypoxemia and respiratory distress. [facility] called and he was brought emergently to [facility] where his sats were 64% on 100% nonrebreather with mean arterial pressure 44. He was emergently intubated, CVL and art line placed. He is in septic shock. SUBJ: 02/11: Patient remains intubated sedated, critically ill. FiO2 reduced to 80% after increasing PEEP to 12. In severe septic shock Levophed at 16 mcg/m, vasopressin at 0.04 international units. D/W vascular surgery Dr. Enciso. He performed bedside Left upper extremity incision and debridement and excision of septic cephalic vein. 02/12: Remains intubated sedated profoundly septic, in shock on vasopressin and 7 mcg/min Levophed. FiO2 has improved to 45%, WBC count remains elevated with 20 ,000 white count significant left shift. Slight improvement in creatinine 2.9 urine output 750 ml 24 hours. 2-D echo shows LV ejection fraction 20-25%, no vegetation reported. Blood cultures 4 staph aureus. Wound culture pending 02/13: Remains critically ill but stable to improving. WBC count is down to 16, creatinine improving to 2.36. Off all pressors. Urine output also improving. 1.5L in 24 hours 02/14: Extubated 02/13. Tolerating well. WBC now down to 12.8. Creat improving 2.3 to 2. UO 3.4L. remains off all pressors. Was started on Precedex yesterday night for agitation, currently on 0.5 g per KG per hour. Chest x-ray shows left more than right air space disease 02/20/17 Re consult: 62-year-old male who was originally admitted for lower extremity weakness and found to have what was thought to be possible transverse myelitis. His hospital course his included a healthcare associated pneumonia, septic thrombophlebitis, DVT. He was most recently in the hospital floor where he had significant nausea and vomiting and diarrhea. His C. difficile test was recently negative. However, he has experienced worsening acute on chronic renal failure, hypotension, tachycardia, and severe hypoxemia. He did have a bout of vomiting earlier today, and his hospitalist attending suspects that he may have aspirated. He arrives by rapid response to the ICU with a nonrebreather in place in severe respiratory distress with SPO2 of 85%. I emergently intubate the patient, see separate procedure note for details. At this point the patient was hypotensive and tachycardic. He does have a history of an EF of 20%, however clinically he appears in florid septic shock. I placed central line and arterial line started vasopressors and gentle IV fluid resuscitation with 1 L of LR. Patient today was empirically broadened to vancomycin and Zosyn from his oxacillin which was initially treating MSSA bacteremia. He is recultured. Critical-care medicine is consulted to evaluate and manage his worsening multiorgan system failure and decompensated septic shock 02/21: Patient remains intubated sedated. Becomes anxious tachypnea on sedation lightening. Chest x-ray shows mild left lower lobe infiltrate. WBC count is slightly improved today from 23.2 t0 21. C Diff negative. UO adequate, creat slightly worsening. 1.57 today 02/22: Remains intubated sedated tolerated CPAP yesterday, plan is for EGD/ Colonscopy. WBC count back to normal. UO adequate. Creat stable 02/23: Tolerating CPAP trials following commands. Will do a spontaneous breathing trials. Status post EGD colonoscopy yesterday -Gastritis, esophagitis. Diverticulosis and multiple polyps. Urine output adequate but creatinine increasing to 1.7 with patient requiring multiple straight catheterization. We'll reinsert Sloan. 02/24: Breathing comfortably 24 hours after extubation. Protects airway well. 02/25: Excoriate bottom, will place rectal FMS. Start pureed diet. 02/26: Afebrile. Complaining of nausea and vomiting this afternoon. Increased stool output. Continue potassium replacement today. 02/27: 10 PM overnight, acutely hypotensive. Received 3 units PRBCs. Antibiotic coverage broadened to piperacillin/tazobactam, cortisol and 1 dose of vancomycin. Oxacillin drip currently on hold. Symptomatically, patient continues to vague abdominal pain/nausea vomiting which is unchanged for the past several days. Lipase elevated yesterday. Lactic acid normal. Troponin normal. Urinary retention after removal of Sloan. Straight catheter 1300. Cc 02/28: New diagnosis large retroperitoneal hematoma. Received 10 PRBC, 14 FFP, 2 platelets, 1 cryo-, 6 g calcium chloride, 2 is magnesium sulfate and 4 mg Bumex. CTA abdomen revealed possible arterial bleeds iliac, lumbar. Patient is currently on norepinephrine and epinephrine drips and possible need right nephrostomy tube placement due to large hematoma compressing ureter. Intra-abdominal bladder pressures are currently 13 03/01: Afebrile. Received 25 g albumin and 1 unit PRBCs overnight. Intra- abdominal bladder pressures currently 19. Currently on 3 micrograms per minute of norepinephrine. Qbyax-ri-owvo 1 out of 4 on 4 mics grams per kilogram per minute of cisatracurium. 03/02: Slightly hypothermic overnight. Hemoglobin appears to have stabilized. Troponin bump overnight likely secondary to demand ischemia from hypotension. Hemodynamically stable off all vasopressors. 03/03: Received 1 PRBCs overnight. 3 units currently. Off all vasopressors. Likely rebleeding. Stool is dark. 03/04: Remains unstable. Ventilator dependent. 03/05: afebrile. hgb stable. 03/06: bumex drip started overnight. good uop after bumex initiated. still grossly volume overloaded. Cr downtrending. more awake with transition to propofol. still too volume overloaded to tolerate extubation. hgb stable. 03/07: Afebrile. Tolerating tube feeds at goal with Nepro. Positive BM. On low-dose fentanyl and propofol drips. Potassium currently being replaced. 03/08: Eyes will open on ventilator. Afebrile. Tolerating tube feeding. Failed PSV trial yesterday due to apnea. 03/09: Following commands. Tmax 101. Tolerating tube feeding. One hour PSV trial yesterday. Currently tolerating well so far today 1.5 hours 03/10: Low-grade temperatures. Tolerating PSV trial 10 hours yesterday. Currently at 5/5 at 35%. We'll probably attempt extubation a.m. after hemodialysis. 03/11: Extubated currently in 4 L nasal cannula. Thick secretions thick clear with cough. Currently afebrile. Tolerating diet previously. 03/12: Sleepy this morning but arouses. Following commands. Refusing diet at the present time. On 2 L nasal cannula. 03/13: Patient reintubated last night for worsening respiratory status. Currently sedated on mechanical ventilation. Became hypotensive following intubation and is on Levophed 20 mics per minute. 03/14: Sedated, orally intubated on mech vent at the time of my evaluation this AM, subsequently underwent perc trach placement. Remains on levophed for pressor support. Transfused 1 unit PRBCs today. Persisten 03/15: Trach site clean, dry. CXR with bilateral basilar infiltrates. 03/16: Pulmonary congestion persists. Clinical condition not improving. Prognosis becoming increasingly bleak. 03/17: Glucose intolerance worse. No improvement in neurological function. 03/18: Remains on mechanical ventilation via tracheostomy. Off pressors now. Neurologic status remains poor. 03/19: Drowsy, encephalopathic, arousable. On mechanical ventilation via tracheostomy. Levemir increased for hyperglycemia today. Remains off pressors 03/20: More awake, moves both upper extremities. On mechanical ventilation via tracheostomy. Daily C Pap trials ongoing. 03/21: Awake and alert. On mechanical ventilation via tracheostomy. Opens and closes eyes on command. 03/22: Awake and alert. Tolerated T PIECE for 7 hours yesterday. Dialyzed today. 03/23: Currently on T piece trial. Status post dialysis yesterday on 3 L. Awake and alert. Wants to eat. Subjective 03/24: Currently afebrile. Hemodialysis catheter discontinued yesterday from left IJ. Persistent leukocytosis noted. Potassium will be replaced. Furosemide 40 mg twice a day IV to 20 mg IV twice a day 03/25: WBC count unchanged. Patient on T piece with humidified air greater than 48 hours, tolerating it well. Reconsulted 04/12: The patient was transferred emergently from the floor/ [facility]. Patient was initially seen by sash assembler Dr. Estrada, and the patient was noted to be tachypneic on T piece of 40%. ABGs were performed which showed a PaO2 of 60 on T piece of FiO2 of 40%. Chest x-ray was performed which showed loss of entire left hemidiaphragm plumber's assistant consolidation in the left lower lobe. Concern for mucus plugging versus fluid. The patient was transferred emergently to [facility] placed on a ventilator CT of the chest is pending. Upon arrival in the room the patient is alert and oriented, mouthing words, nodding head to yes and no questions O2 sat is 100% but patient is currently on mechanical ventilation. Currently in no respiratory distress. 04/13: Tmax 99.8. The patient's oxygen requirements have decreased currently FiO2 35% with a PaO2 1 blood gas of 85, O2 saturation 100%. No respiratory distress noted. Patient underwent CT of the chest yesterday noted pleural effusions left greater than right, diagnostic/and therapeutic CT thoracentesis plan for this a.m.. 04/14: Patient underwent CT-guided thoracentesis of the right side with approximately 600 cc withdrawn. Today sash assembler Dr. LABOY in and up size indwelling 6.0 Shiley to a 8.0 Shiley. Minimal bleeding noted around the site. X-ray improving. Patient started on CPAP trials today, as well as tube feeds were initiated. 04/15: Placed on T piece this morning via tracheostomy. Appears to be tolerating it. Laying in bed not in any acute distress. 04/16: Awake and alert. Tolerating T piece. Tolerating PEG feeds. 04/17: Awake and alert. Tolerating T piece. Tolerating tube feeds via PEG 04/18: Awake and alert. Tolerating TPs. Tolerating tube feeds. Passed swallow eval 04/19: Awake and alert. Remains on T piece. Wants to move out of ICU as he indicates to me once again as he has for the past few days. Awaiting CIC bed 04/20: Awake and alert. Remains on T piece. Developed hypotension last night for which she was transiently on Levophed however has been off since early this morning. ID adjusting antibiotics and working up for new sepsis. 04/21: Awake and alert. On T piece. Awaiting [facility]IC bed for the last few days. 04/22: Awake and alert. Remains on T piece. Received 500 cc normal saline this morning for tachycardia. 04/23 No events overnight. Remains on TP's with 35% FIO2. Afebrile. 04/24: Resting comfortably. Got short of breath with Passy-Rafy valve which was taken off. 04/25: Remains on T piece. Awaiting transfer out of ICU. 04/26: Remains on T piece. Still awaiting transfer out of ICU since 04/17. 04/27 Patient became hypotensive, bradycardic and hypoxic, ABG on TP's last night showed acute hypercapnic resp acidosis (PH 7.10, CO2: 80) he was subsequently placed on mechanical ventilator. Patient was given Albumin, 2u PRBC and started on Levophed 3mics. Renal function worse today with Cr: 1.53 from 1.13 04/28 No events overnight off Levophed since yesterday. On no sedation. Afebrile. 04/29 Patient is on ventilator via trach. T;100.4 04/30 Patient remains on ventilator via trach. Afebrile. 05/01 No events overnight. Afebrile. 05/02 No events overnight. On ventilator via trach. T: 100.1 last night. 05/03 Patient remains on ventilator via trach. Objective Vital Signs Date Time Temp Pulse Resp B/P (MAP) Pulse Ox O2 Delivery O2 Flow Rate FiO2 05/03/17 08:26 96 35 05/03/17 06:00 97 05/03/17 04:00 97.8 22 108/54 (72) 05/02/17 04:00 Mechanical Ventilator Intake and Output 05/03/17 05/03/17 05/04/17 08:00 16:00 00:00 Intake Total 873 ml Output Total 1600 ml Balance -727 ml Result Diagram: 05/03/17 0545 05/03/17 0545 Other Results Laboratory Tests Test 05/03/17 05:45 White Blood Count 20.5 TH/MM3 Red Blood Count 2.81 MIL/MM3 Hemoglobin 7.7 GM/DL Hematocrit 24.1 % Mean Corpuscular Volume 85.9 FL Mean Corpuscular Hemoglobin 27.5 PG Mean Corpuscular Hemoglobin Concent 32.1 % Red Cell Distribution Width 17.8 % Platelet Count 192 TH/MM3 Mean Platelet Volume 8.1 FL Neutrophils (%) (Auto) 75.2 % Lymphocytes (%) (Auto) 6.5 % Monocytes (%) (Auto) 6.7 % Eosinophils (%) (Auto) 11.5 % Basophils (%) (Auto) 0.1 % Neutrophils # (Auto) 15.4 TH/MM3 Lymphocytes # (Auto) 1.3 TH/MM3 Monocytes # (Auto) 1.4 TH/MM3 Eosinophils # (Auto) 2.4 TH/MM3 Basophils # (Auto) 0.0 TH/MM3 CBC Comment AUTO DIFF Differential Total Cells Counted 100 Neutrophils % (Manual) 52 % Band Neutrophils % 9 % Lymphocytes % 16 % Monocytes % 4 % Eosinophils % 5 % Neutrophils # (Manual) 15.4 TH/MM3 Metamyelocytes 5 % Myelocytes 9 % Differential Comment FINAL DIFF MANUAL Platelet Estimate NORMAL Platelet Morphology Comment NORMAL Blood Urea Nitrogen 69 MG/DL Creatinine 2.15 MG/DL Random Glucose 140 MG/DL Calcium Level 9.6 MG/DL Sodium Level 146 MEQ/L Potassium Level 3.6 MEQ/L Chloride Level 113 MEQ/L Carbon Dioxide Level 25.5 MEQ/L Anion Gap 8 MEQ/L Estimat Glomerular Filtration Rate 31 ML/MIN Imaging Last Impressions Chest X-Ray 04/27/17 0600 Signed Impressions: Service Date/Time: Thursday, April 27, 2017 05:19 - CONCLUSION: Improved aeration. Cornel Harrison MD Thoracentesis 04/13/17 1054 Signed Impressions: Service Date/Time: Thursday, April 13, 2017 15:26 - CONCLUSION: Uncomplicated CT-guided right thoracentesis. Candido Mendoza Jr., MD Chest CT 04/12/17 6199 Signed Impressions: Service Date/Time: March 17:51 - CONCLUSION: 1. Slight increase in size of bilateral effusions and basilar atelectasis, left greater than right compared with February 27. Tracheostomy in good position. Trace Holloway MD Renal Ultrasound 04/02/17 0000 Signed Impressions: Service Date/Time: Sunday, April 02, 2017 16:59 - CONCLUSION: Limited exam with the left kidney being unable to be evaluated in the bladder not distended. There do appear to be multiple shadowing stones at the right kidney without hydronephrosis. Angelo Manzo MD Wrist X-Ray 03/27/17 0000 Signed Impressions: Service Date/Time: Monday, March 27, 2017 13:21 - CONCLUSION: 1. No acute fracture is identified. A portion of the previously documented distal ulna fracture remains visualized. 2. 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 Angelo Allen MD Aortography 02/28/17 0000 Signed Impressions: Service Date/Time: Tuesday, February 28, 2017 08:01 - CONCLUSION: 1. Active hemorrhage from distal right lateral sacral and iliolumbar branches successfully coil and Gelfoam embolized, as above. Juan Bhakta MD Abdomen/Pelvis CT 02/28/17 0000 Signed Impressions: Service Date/Time: Tuesday, February 28, 2017 06:51 - CONCLUSION: 1. The right retroperitoneal hematoma has increased in size, as above. There are 2 serpiginous arterially enhancing structures visualized, one in the right psoas muscle and another extending into the hematoma at the right iliac fossa. These could represent sites of continued active bleeding. 2. Stable moderate size left and small right pleural effusion with associated compressive atelectasis. 3. Stable small volume of free fluid in the abdomen and pelvis. There is also anasarca. The findings concerning the retroperitoneal hematoma were discussed with Dr. Aguiar via telephone at approximately 7: 10 AM on 02/28/2017. Angelo Allen MD Abdomen X-Ray 02/26/17 0000 Signed Impressions: Service Date/Time: Sunday, February 26, 2017 14:52 - CONCLUSION: 1. Nonobstructive bowel gas pattern. Juan Bhakta MD Upper Extremity Ultrasound 02/10/17 0000 Signed Impressions: Service Date/Time: Friday, February 10, 2017 18:46 - CONCLUSION: Occlusive thrombus in the cephalic and basilic veins. Benjamin Person MD Lung Scan-V Nuclear Medicine 02/10/17 0000 Signed Impressions: Service Date/Time: Friday, February 10, 2017 22:17 - CONCLUSION: Low probability pulmonary embolism. Candido Patton MD Head CT 02/10/17 0000 Signed Impressions: Service Date/Time: Friday, February 10, 2017 23:51 - CONCLUSION: Negative noncontrast CT brain. Candido Patton MD Lumbar Puncture Fluoroscopy 02/01/17 0000 Signed Impressions: Service Date/Time: January 09:35 - CONCLUSION: Uncomplicated fluoroscopically guided lumbar puncture. CSF was clear. Nabeel Peralta MD Head Magnetic Resonance Angiography 01/27/17 0000 Signed Impressions: Service Date/Time: Friday, January 27, 2017 10:33 - CONCLUSION: No intracranial vascular abnormality is identified. There is no aneurysm visualized. Angelo Allen MD IVC Filter Placement X-Ray 01/25/17 0000 Signed Impressions: Service Date/Time: January 10:29 - CONCLUSION: Uncomplicated inferior vena cava filter placement as above. Yung Fowler MD Thoracic Spine MRI 01/24/17 0000 Signed Impressions: Service Date/Time: Tuesday, January 24, 2017 22:29 - CONCLUSION: 1. Mild degenerative spondylosis most prominently at T11-L1 with slight effacement of the anterior thecal sac and left lateral recess. No significant neural foraminal stenosis. 2. No acute fracture. Juan Bhakta MD Lumbar Spine MRI 01/23/17 0000 Signed Impressions: Service Date/Time: Monday, January 23, 2017 17:01 - CONCLUSION: 1. At L4-5 is a broad-based disc protrusion with severe central canal and lateral recess stenosis and flattening of the exiting right L4 nerve root. 2. L5-S1 there is a disc protrusion and moderate stenosis with flattening of the exiting L5 nerve roots bilaterally. 3. At L3-4 there is a moderate to severe central stenosis and lateral recess stenosis with mild foraminal stenosis. 4. No acute fracture or spondylolisthesis. Trace Holloway MD Lower Extremity Ultrasound 01/23/17 Signed Impressions: Service Date/Time: Monday, January 23, 2017 09:53 - CONCLUSION: Bilateral focal lower extremity DVT involving the posterior tibial veins. Angelo Garrido MD Cervical Spine MRI 01/23/17 Signed Impressions: Service Date/Time: Monday, January 23, 2017 17:01 - CONCLUSION: 1. Multilevel cervical spine degenerative changes as above. 2. Mild degrees of spinal stenosis at C3/C4-C6/C7. No cord compression or cord signal abnormality. 3. Age indeterminate left paracentral/foraminal disc protrusion at C6/C7. 4. Multilevel foraminal stenosis, most severe on the left at C6/C7. Please see individual levels above. 5. No fracture or subluxation of the cervical spine. Angelo Garrido MD Brain MRI 01/23/17 Signed Impressions: Service Date/Time: Monday, January 23, 2017 17:01 - CONCLUSION: 1. No acute stroke or other acute intracranial abnormality demonstrated. 2. Moderate severity chronic white matter changes, nonspecific but most likely related to chronic small vessel disease. 3. Few scattered tiny lacunar infarcts of the brainstem. 4. Given the findings are not entirely specific, clinical evaluation for possible multiple sclerosis recommended. Angelo Garrido MD Knee X-Ray [id number] Signed Impressions: Service Date/Time: Sunday, January 22, 2017 21:17 - CONCLUSION: 1. Evidence of moderate to large joint effusion. 2. No acute fracture or malalignment. 3. Mild 3 compartment osteoarthritic change. Benjamin Person MD Hip and Pelvis X-Ray [id number] Signed Impressions: Service Date/Time: Sunday, January 22, 2017 21:10 - CONCLUSION: 1. Mild to moderate degenerative change of both hips with no acute fracture or malalignment. There is flattening and remodeling of the right humeral head. Benjamin Person MD Objective Remarks GENERAL: 62-year-old male, resting in bed, on mechanical ventilation via trach HEENT: Normocephalic. Atraumatic. Pupils equal, round, reactive. NECK: Tracheostomy in place, around trach site erythematous, yellowish drainage CHEST: b/l equal air entry CARDIOVASCULAR: Tachycardic S1-S2 regular, no gallop or murmur ABDOMEN distended. No rigidity. Umbilical hernia is reducible. No guarding. PEG tube in place : Positive scrotal edema Sloan in situ MUSCULOSKELETAL: Pulses 2+. 1+ bilateral upper and lower extremity edema. NEUROLOGICAL: Awake and alert, has spontaneous eye opening. Opens and closes eyes on command. Moves 4 limbs weakly to stimulation. Procedures 01/25/2017- Retrievable IVC Filter placement 01/26/17-lumbar puncture with fluoroscopy-by interventional radiology 02/01/17- lumbar puncture fluoroscopy by interventional radiology 02/10/17- Endotracheal Intubation 02/10/17-left IJ central venous line placed 02/10/17-left femoral arterial line placed 02/11/17-Diagnostic and therapeutic bronchoscopy with bronchoalveolar lavage 02/11/17-Left upper extremity incision and debridement with excision of septic cephalic vein 02/13/17- Extubated 02/20/17- endotracheal intubation 02/20/17- Left subclavian central line placement 02/20/17-Right radial A-line placement 02/22/17-EGD/colonoscopy 02/28/17-right radial a line 02/28/17- Endotracheal intubation 02/28/17- right sided introducer catheter placement 02/28/17- Right IJ central line placement 02/28/17-Right chest tube placement 02/28/17- Embolization of inferior and superior sacral branches of right internal iliac artery 03/01/17- Hemodialysis access catheter 03/03/17-Right IJ central line placement 03/11/17-Extubated 03/13/17- Endotracheal intubation 03/14/17-Tracheostomy placement, trach downsized to 6.0 Anni 03/30/17 03/15/17-PEG tube placement 04/11/17-CT Chest 04/13/17-thoracentesis right 600 cc removed Date of Insertion: Feb 20, 2017 Date of Insertion: Mar 03, 2017 Line: Central Venous Catheter Side: Right Location: Internal, Jugular A/P Problem List: (1) Septic shock ICD Code: A41.9 - Sepsis, unspecified organism; R65.21 - Severe sepsis with septic shock Status: Acute (2) Acute respiratory failure ICD Code: J96.00 - Acute respiratory failure, unspecified whether with hypoxia or hypercapnia Status: Acute (3) Thrombophlebitis arm ICD Code: I80.8 - Phlebitis and thrombophlebitis of other sites (4) Aspiration pneumonia ICD Code: J69.0 - Pneumonitis due to inhalation of food and vomit Status: Acute (5) Atelectasis of left lung ICD Code: J98.11 - Atelectasis Status: Acute (6) Quadriparesis ICD Code: G82.50 - Quadriplegia, unspecified Status: Acute (7) DVT (deep venous thrombosis) ICD Code: I82.409 - Acute embolism and thrombosis of unspecified deep veins of unspecified lower extremity (8) Altered mental status ICD Code: R41.82 - Altered mental status, unspecified Status: Acute (9) CKD (chronic kidney disease) stage 3, GFR 30-59 ml/min ICD Code: N18.3 - Chronic kidney disease, stage 3 (moderate) Status: Chronic (10) Acute renal failure ICD Code: N17.9 - Acute kidney failure, unspecified Status: Acute (11) Diabetes mellitus ICD Code: E11.9 - Type 2 diabetes mellitus without complications Status: Chronic (12) Distal end of ulna fracture, closed ICD Code: S52.609A - Unspecified fracture of lower end of unspecified ulna, initial encounter for closed fracture Status: Acute (13) Gout ICD Code: M10.9 - Gout, unspecified Status: Chronic Assessment and Plan Assessment: NEURO/PSYCH: Acute metabolic encephalopathy- persistent Quadriparesis secondary to suspected transverse myelitis Recurrent falls On no sedation. Monitor neuro status. Suspected transverse myelitis. Received methylprednisolone 250 mg IV every 6 hours 01/27-02/02, started back on hydrocortisone 02/21/17, initially tapering to 50 mg IV every 8 hours starting received 1 dose at 2100 prior to becoming hypotensive. weaning hydrocortisone taper and stopped 03/09. Resumed hydrocortisone 50mg IV Q6hrly on 03/14 as patient became hypotensive following intubation on 03/13 requiring levophed. Continue Cortef 10mg Q12 LP 01/26 and 02/01. CSF culture negative 01/26, 02/01 Oligoclonal bands negative. CSF/serum IgG index is not elevated. VDRL nonreactive. Cryptococcal antigen negative. Brain MRI 01/23 no acute stroke. Few scattered lacunar infarcts of the brainstem. Moderate chronic white matter changes. MRI cervical/thoracic spine- mild spinal stenosis C3/C4 to C6/C7. No cord compression. RPR negative Neurology has been following, Dr. Crenshaw. Repeat CT brain 02/10 - negative Continue PT/OT Continue oxycodone 10 mg every 4 hours scheduled RESP: Acute hypoxemic respiratory failure Healthcare associated pneumonia/Aspiration Pneumonia S/P Right-sided chest tube 02/28 Continue with vent support keep sat >92% Bronchodilators, pulm toilet, trach care s/p perc tracheostomy 03/14. Pulmonology following Dr. Estrada -check CXR 04/13 CT guided thoracentesis scheduled emergently as discussed with Dr. Estrada - 600cc removed (right) 04/14-tracheostomy up sized to 8.[address] [place] [address]. Estrada at bedside CV: Systolic heart failure likely chronic with ejection fraction 20-25% Hyperlipidemia History of hypertension Mild TR Sinus tachycardia Elevated troponin likely type II demand ischemia on Lopressor 25mg Q12- Monitor HR and BP keep MAP>65mmHg Atorvastatin 10 mg by mouth daily for dyslipidemia. 2-D echocardiogram 01/11 revealed EF 20-25%. Mild TR. Pulmonary arterial pressures were normal around 20 GI: Large right retroperitoneal hematoma Erosive esophagitis Adematous/hyperplastic colon polyps Severe acute protein calorie malnutrition Nausea/vomiting - resolved. Diarrhea Gastritis Diverticulosis Internal and external hemorrhoids Hiatal hernia Elevated lipase On tube feeds-Nepro@ 40ml/hr 02/27 CT chest/abdomen and pelvis - 9.4 x 7.5 renal and 16 x 12 cm right psoas muscle hematoma. Fluid around liver and spleen. Right-sided nephrolithiasis CTA abdomen 02/28 - possible blushing around iliac/lumbar vessels Discussed with IR. s/p attempted embolization CT abdomen and pelvis 02/10 atrophic left kidney. Bilateral inguinal hernias fat- containing. Nonobstructing 12 mm right kidney stone repeat CT abd/pelvis did not show evidence of obstruction. patient clinically has been having diarrhea (c. diff negative 02/19). also with nausea/vomiting of unclear etiology. EGD/Colonoscopy-02/22/17 showed gastritis esophagitis, hiatal hernia, diverticulosis and multiple polyps in descending colon and sigmoid which were snared biopsied. Biopsy pending Status post PEG tube placement Lansoprazole 30 mg twice a day for GI prophylaxis FEN/RENAL: Acute kidney injury in the setting of Chronic kidney disease stage 3-4 History of uric acid kidney stones with prior stent BPH Nonfunctioning left kidney Monitor renal function, electrolytes replacement as needed Cr: 2.15 Renal is following- Dr. Liao. On Lasix 20mg Q12, IV Albumin Place on Free water 250ml Q8. RIOS/SPEP negative. 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 Recommended nephrostomy tube if obstruction Nephrology consulted, off hemodialysis. Making urine. ICU electrolyte replacement protocol Last IHD was 03/22 ID: Septic shock- resolved. Abscess and Suppurative thrombophlebitis left upper extremity MSSA bacteremia Klebsiella UTI ESBL positive Acute aspiration pneumonia/HCAP 04/27 Sputum cx: Pseudomonas, Urine cx: Ivania Bustillo , BC: 05/24 bottles: Coag negative staph likely contaminant 04/29 BC: NGTD 05/01 Wound cx: Pseudomonas, Group D enterococcus, GNR Previously treated with Bactrim, ertapenem, intermittent vancomycin, nafcillin Blood cultures 2, UA ESBL positive Klebsiella UTI Sputum 03/14 - Pseudomonas came back resistant to imipenem, Stenotrophomonas maltophilia Antibiotics per ID. on Diflucan, Zerbaxa, ID is following. C-diff PCR negative wound service is following. stage IV sacral ulcer, ulcer right ankle/LE HEME: Acute blood loss anemia DVT, bilateral posterior tibial vein, IVC filter Septic thrombophlebitis with occlusive thrombus mid cephalic and basilic vein side Monitor CBC s/p transfusion 2units PRBC ( 04/26) Received 10 PRBC, 14 FFP, 2 platelets, 1 cryo-02/28 Received 3 units PRBCs Ultrasound 01/23/17 - Bilateral lower extremity with occlusive posterior tibial vein DVTs. Heparin was initially started for DVT but was placed on hold due to LP with suspected traumatic tap. Currently holding full anticoagulation with enoxaparin 100 mg IV twice a day due to anemia as of 02/26 IVC filter was placed 01/25/17. Ultrasound LUE 02/10 occlusive thrombus mid cephalic vein, basilic vein.s. Transfuse 3 units PRBCs 02/27 Transfuse 2 units PRBCs 03/01. Transfused 1 unit PRBCs on 03/14 ENDO: Diabetes mellitus Hypoglycemia History of prior adrenal insufficiency with shock Gout Accu-Cheks to maintain euglycemia Novulin R every 4 hours. Low Regimen MSK: Right distal ulna fracture. Recommended nonoperative management. PROPH: Lansoprazole 30 mg twice a day twice a day for stress ulcer prophylaxis. Has IVC filter. Therapeutic enoxaparin was placed on hold for retroperitoneal hematoma ACCESS: Right subclavian CVP placed 04/27 Level 3 Problem Qualifiers (1) Aspiration pneumonia: (2) DVT (deep venous thrombosis): Qualified Codes: I82.443 - Acute embolism and thrombosis of tibial vein, bilateral (3) Acute renal failure: Qualified Codes: N17.9 - Acute kidney failure, unspecified (4) Diabetes mellitus: (5) Gout: Hood Madera MD May 03, 2017 09:50
[2017-05-03] MEDS: FLUCONAZOLE 200 MG TAB PO SCH (09:57)
[2017-05-03] MEDS: LACTOBACILLUS ACIDOPHILUS TAB PO SCH ×3 (09:57→17:20)
[2017-05-03] MEDS: METOPROLOL TARTRATE 25 MG TAB PO SCH ×2 (09:57→20:02)
[2017-05-03] MEDS: QUEtiapine FUMARATE 25 MG TAB PO SCH (09:57)
[2017-05-03] MEDS: TAMSULOSIN HCL 0.4 MG CAP PO SCH ×2 (09:57→20:02)
[2017-05-03] MEDS: LANSOPRAZOLE SOLUTAB 30 MG TAB NG SCH ×2 (09:57→20:02)
[2017-05-03] MEDS: CHOLESTYRAMINE 4 GM PACKET G-TUBE SCH ×2 (09:57→20:03)
[2017-05-03] MEDS: SODIUM CHLORIDE 0.9% FLUSH 10 ML FLUSH IV FLUSH SCH ×3 (09:58→20:03)
[2017-05-03] MEDS: CHLORHEXIDINE 0.12% (ORAL KIT) 15 ML CUP MT SCH ×2 (09:58→20:03)
[2017-05-03] MEDS: COLLAGENASE OINT 30 GM TUBE TOPICAL SCH (09:59)
--- NOTE | 2017-05-03 11:00 | HHI.NPPN ---
Subjective History of Present Illness 61-year-old with history of urinary stone patient again got unstable has recurrent bouts of ICU admission requiring ventilation and respiratory care started having scrotal swelling and acute renal failure again, he had mild hyperkalemia and this was treated I have been reconsulted again Additional Remarks Patient had trach on vent, not in distress. Review of Systems General Constitutional: Fatigue Objective Data Data Vital Signs Date Time Temp Pulse Resp B/P (MAP) Pulse Ox O2 Delivery O2 Flow Rate FiO2 05/03/17 08:26 96 35 05/03/17 08:00 35 05/03/17 06:00 97 05/03/17 04:03 98 35 05/03/17 04:00 94 05/03/17 04:00 97.8 94 22 108/54 (72) 98 05/03/17 04:00 35 05/03/17 02:00 92 05/03/17 00:56 100 35 05/03/17 00:00 35 05/03/17 00:00 97.6 91 22 104/53 (70) 99 05/03/17 00:00 91 05/02/17 22:00 111 05/02/17 20:11 98 35 05/02/17 20:00 97.7 109 28 119/60 (79) 98 05/02/17 20:00 35 05/02/17 20:00 109 05/02/17 18:00 104 05/02/17 17:00 104 29 116/56 (76) 96 05/02/17 16:30 110 05/02/17 16:30 110 48 127/61 (83) 93 05/02/17 16:00 101 05/02/17 16:00 35 05/02/17 16:00 101 23 125/60 (81) 97 05/02/17 14:30 107 05/02/17 14:30 107 24 125/59 (81) 98 05/02/17 14:00 103 05/02/17 14:00 103 23 111/56 (74) 98 05/02/17 13:30 103 05/02/17 13:30 103 28 106/57 (73) 97 05/02/17 13:00 106 05/02/17 13:00 106 25 115/58 (77) 98 05/02/17 12:30 104 25 113/55 (74) 98 05/02/17 12:30 104 05/02/17 12:00 109 25 124/61 (82) 98 05/02/17 12:00 109 05/02/17 12:00 35 05/02/17 11:30 123 05/02/17 11:30 123 26 143/65 (91) 98 05/02/17 11:24 124 22 167/74 (105) 99 05/02/17 11:24 124 05/02/17 11:00 118 05/02/17 11:00 118 24 124/67 (86) 99 -: 05/03/17 0545 05/03/17 0545 Physical Exam General Appearance: Pale Eyes Eye Exam: Pupils Equal Throat Throat Exam: Oral Mucosa [place] & Moist Neck Neck Exam: Neck Supple Pulmonary Resp Exam: Clear Bilaterally Cardiology CV Exam: Normal Sinus Rhythm Gastrointestinal/Abdomen GI Exam: Non-Tender, Distended Genitourinary Exam: Flank Non-Tender (scrotal edema) Extremeties Extremities Exam: Moderate Edema, Pitting Edema Neurologic Neuro Exam: Awake Assessment/Plan Problem List: (1) Acute renal failure ICD Codes: N17.9 - Acute kidney failure, unspecified Status: Acute Plan: Patient with pneumonia as, sepsis, acute renal failure Had pneumonia, developed sepsis with ARF again creatinine declined slightly post hydration he also had retroperitoneal bleed Pseudomonas in sputum, with colonized airway 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 Patient had been on dialysis earlier in hospitalization. He again has prerenal azotemia and respiratory failure, we will try albumin with Lasix again ON Lasix 20 mg IV every 12 follow kidney functions non oliguric ATN from sepsis UOP 2 L cr 2.15 He has multiple infections and pneumonia (2) CKD (chronic kidney disease) stage 3, GFR 30-59 ml/min ICD Codes: N18.3 - Chronic kidney disease, stage 3 (moderate) Status: Chronic Plan: Ultrasound revealed chronic kidney disease there is no kidney stones (3) Diabetes ICD Codes: E11.9 - Type 2 diabetes mellitus without complications Plan: Continue to monitor (4) Distal end of ulna fracture, closed ICD Codes: S52.609A - Unspecified fracture of lower end of unspecified ulna, initial encounter for closed fracture Status: Acute Plan: Orthopedic is following Problem Qualifiers (1) Acute renal failure: Qualified Codes: N17.9 - Acute kidney failure, unspecified Laura Liao MD May 03, 2017 11:00
--- NOTE | 2017-05-03 11:05 | RADRPT ---
EXAM DATE/TIME: 05/03/2017 10:19 [facility] COMPARISON: CT GUIDED THORACENTESIS RIGHT, April 13, 2017, 15:26. CHEST SINGLE AP, April 27, 2017, 5:19. INDICATIONS : Evaluate lung status. Ventilator dependant. MEDICAL HISTORY : Hypertension. Renal disease, end stage. SURGICAL HISTORY : Bilateral uretheral stents. Tracheostomy ENCOUNTER: Subsequent ACUITY: 2 days PAIN SCORE: Non-responsive. LOCATION: Bilateral chest FINDINGS: Lungs are hypoaerated. Increased opacity in the both lungs. There is underlying interstitial vascular prominence. Heart and mediastinal structures are stable. Tracheostomy tube is in place. CONCLUSION: 1. Poor lung aeration 2. Interstitial vascular prominence 3. Significant left lung opacity characteristic of moderate pleural effusion and underlying basilar a ir space disease. Lenny Ware MD on May 03, 2017 at 11:01 Board Certified Radiologist. This report was verified electronically.
[2017-05-03] MEDS: ATORVASTATIN 10 MG TAB PO SCH (20:02)
[2017-05-04] VITALS (18 sets, daily range): BP systolic 92–127; BP diastolic 51–62; PULSE 89–109; RESP 21–27; TEMP 97.9–99.1; O2SAT 94–100
[2017-05-04] MEDS: INSULIN ASPART SUPPLEMENTAL SCALE SQ SCH ×4 (00:37→17:39)
[2017-05-04] MEDS: oxyCODONE HCL ORAL CONC 5 MG/0.25 ML SYRINGE PO SCH ×6 (00:37→20:56)
[2017-05-04] MEDS: ALBUMIN 25% INJ 100 ML IV SCH ×2 (03:41→15:38)
[2017-05-04] MEDS: FREE WATER G-TUBE SCH ×3 (05:21→17:36)
[2017-05-04] MEDS: CEFTOLOZANE-TAZOBACTAM INJ 1,500 MG in SODIUM CHLORIDE 0.9% INJ 100 ML IV SCH ×3 (05:21→20:56)
[2017-05-04] MEDS: FUROSEMIDE 20 MG/2 ML VIAL IV PUSH SCH ×2 (05:21→17:36)
[2017-05-04] MEDS: HYDROCORTISONE 10 MG TAB PO SCH ×2 (05:22→17:36)
[2017-05-04 06:15] LABS: AUTOMATED NEUTROPHIL # 14.4 TH/MM3 (1.8-7.7); BASOPHIL % 0.2 % (0.0-2.0); EOSINOPHIL # 2.6 TH/MM3 (0-0.4); EOSINOPHIL % 13.4 % (0.0-4.0); HEMATOCRIT 22.8 % (39.0-51.0); LYMPH % 5.7 % (9.0-44.0); LYMPHOCYTE # 1.1 TH/MM3 (1.0-4.8); MEAN CELL VOLUME 86.1 FL (80.0-100.0); MEAN CORPUSCULAR HEMOGLOBIN 27.1 PG (27.0-34.0); MEAN CORPUSCULAR HGB CONC 31.4 % (32.0-36.0); NEUT % 73.7 % (16.0-70.0); PLATELET COUNT 188 TH/MM3 (150-450); RED BLOOD COUNT 2.65 MIL/MM3 (4.50-5.90); RED CELL DISTRIBUTION WIDTH 18.3 % (11.6-17.2); WHITE BLOOD COUNT 19.5 TH/MM3 (4.0-11.0)
[2017-05-04 06:22] LABS: HEMO FLAGS AUTO DIFF
[2017-05-04 06:41] LABS: BICARBONATE 25.2 MEQ/L (21.0-32.0); POTASSIUM 3.1 MEQ/L (3.5-5.1)
--- NOTE | 2017-05-04 07:06 | HHI.NPPN ---
Subjective History of Present Illness 61-year-old with history of urinary stone patient again got unstable has recurrent bouts of ICU admission requiring ventilation and respiratory care started having scrotal swelling and acute renal failure again, he had mild hyperkalemia and this was treated I have been reconsulted again Additional Remarks Patient had trach on vent, not in distress. Review of Systems General Constitutional: Fatigue Objective Data Data Vital Signs Date Time Temp Pulse Resp B/P (MAP) Pulse Ox O2 Delivery O2 Flow Rate FiO2 05/04/17 06:00 92 05/04/17 04:00 35 05/04/17 04:00 98.2 91 21 119/56 (77) 97 05/04/17 04:00 91 05/04/17 03:10 98 35 05/04/17 02:00 92 05/04/17 00:33 98 35 05/04/17 00:00 98.2 89 25 112/55 (74) 98 05/04/17 00:00 89 05/04/17 00:00 35 05/03/17 22:00 90 05/03/17 20:25 95 35 05/03/17 20:00 35 05/03/17 20:00 93 05/03/17 20:00 98.4 93 22 113/54 (73) 96 05/03/17 18:20 16 05/03/17 18:00 96 05/03/17 16:00 35 05/03/17 16:00 101 05/03/17 16:00 98.3 101 23 117/59 (78) 95 05/03/17 14:00 92 05/03/17 13:34 97 35 05/03/17 12:00 98.5 89 23 101/52 (68) 98 05/03/17 12:00 89 05/03/17 12:00 35 05/03/17 10:00 99 05/03/17 09:00 99 05/03/17 08:26 96 35 05/03/17 08:00 35 05/03/17 08:00 97 -: 05/04/17 0537 05/04/17 0537 Physical Exam General Appearance: Pale Eyes Eye Exam: Pupils Equal Throat Throat Exam: Oral Mucosa [place] & Moist Neck Neck Exam: Neck Supple Pulmonary Resp Exam: Clear Bilaterally Cardiology CV Exam: Normal Sinus Rhythm Gastrointestinal/Abdomen GI Exam: Non-Tender, Distended Genitourinary Exam: Flank Non-Tender (scrotal edema) Extremeties Extremities Exam: Moderate Edema, Pitting Edema Neurologic Neuro Exam: Awake Assessment/Plan Problem List: (1) Acute renal failure ICD Codes: N17.9 - Acute kidney failure, unspecified Status: Acute Plan: Patient with pneumonia as, sepsis, acute renal failure Had pneumonia, developed sepsis with ARF again creatinine declined slightly post hydration he also had retroperitoneal bleed Pseudomonas in sputum, with colonized airway 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 Patient had been on dialysis earlier in hospitalization. He again has prerenal azotemia and respiratory failure, we will try albumin with Lasix again ON Lasix 20 mg IV every 12 follow kidney functions non oliguric ATN from sepsis UOP 2.6 L cr 2 K low replace KCL 20 meq x 2 He has multiple infections and pneumonia Dr. Leonard to follow from tomorrow (2) CKD (chronic kidney disease) stage 3, GFR 30-59 ml/min ICD Codes: N18.3 - Chronic kidney disease, stage 3 (moderate) Status: Chronic Plan: Ultrasound revealed chronic kidney disease there is no kidney stones (3) Diabetes ICD Codes: E11.9 - Type 2 diabetes mellitus without complications Plan: Continue to monitor (4) Distal end of ulna fracture, closed ICD Codes: S52.609A - Unspecified fracture of lower end of unspecified ulna, initial encounter for closed fracture Status: Acute Plan: Orthopedic is following Problem Qualifiers (1) Acute renal failure: Qualified Codes: N17.9 - Acute kidney failure, unspecified Laura Liao MD May 04, 2017 07:06
[2017-05-04 07:13] LABS: BANDS 13 % (0-6); CORRECTED NUCLEATED RBC 1 /100 WBC (0-0); EOSINOPHILS 8 % (0-4); METAMYELOCYTES 4 % (0-1); MYELOCYTES 6 % (0-0); NEUTROPHIL # MANUAL DIFF 14.6 TH/MM3 (1.8-7.7); POLYS (SEG NEUTROPHILS) 52 % (16-70); WBC DIFF SAMPLE 100
[2017-05-04 07:14] LABS: PLATELET ESTIMATE SMEAR NORMAL (NORMAL); PLATELET MORPHOLOGY NORMAL (NORMAL); SCAN/DIFF FINAL DIFF MANUAL
[2017-05-04] MEDS: CHLORHEXIDINE 0.12% (ORAL KIT) 15 ML CUP MT SCH ×2 (08:00→20:43)
--- NOTE | 2017-05-04 08:52 | HHI.CCPN ---
Subjective Remarks/Hospital Course Date of admission: 01/22 Date of critical care medicine consult 02/10 due to acute hypoxemic respiratory failure requiring emergent intubation 62-year-old male with a past medical history of hypertension, hyperlipidemia, diabetes mellitus, gout, uric acid kidney stones, kidney disease of unknown stage who originally presented to [facility] emergency department on 01/22 after a fall in which he sustained a right distal ulna fracture. He had been experiencing a gradual primarily lower extremity weakness as well as upper extremity weakness that was progressive. Neurology consult was obtained. MRI revealed no acute stroke. He had multifocal white matter changes. Tiny lacunar infarcts of the brainstem. Lumbar MRI report states L4-L5 disc protrusion with cetnral canal stenosis. Dr. Blackwell evaluated and states no cord compression on MRI C/T spine and recommended nonoperative management. Symptoms were felt to be consistent with transverse myelitis and he underwent Solumedrol 250 mg IV q6 hours 01/27-02/02. He also was found to have occlusive thrombus in the bilateral posterior tibial veins. Heparin was being avoided because he had traumatic lumbar puncture on 01/26 and 02/01. IVC filter was placed 01/25. He was undergoing physical therapy, reportedly making some improvements with plan to eventually discharged home with his son (max assist standing, and bed to chair per PT note). Apparently he had some vomiting the evening of 02/09 and additional vomiting on 02/10. He had a fever 102.8 on 02/09. Last recorded bowel movement was 02/03. Tonight he had acute onset of severe hypoxemia and respiratory distress. [facility] called and he was brought emergently to [facility] where his sats were 64% on 100% nonrebreather with mean arterial pressure 44. He was emergently intubated, CVL and art line placed. He is in septic shock. SUBJ: 02/11: Patient remains intubated sedated, critically ill. FiO2 reduced to 80% after increasing PEEP to 12. In severe septic shock Levophed at 16 mcg/m, vasopressin at 0.04 international units. D/W vascular surgery Dr. Enciso. He performed bedside Left upper extremity incision and debridement and excision of septic cephalic vein. 02/12: Remains intubated sedated profoundly septic, in shock on vasopressin and 7 mcg/min Levophed. FiO2 has improved to 45%, WBC count remains elevated with 20 ,000 white count significant left shift. Slight improvement in creatinine 2.9 urine output 750 ml 24 hours. 2-D echo shows LV ejection fraction 20-25%, no vegetation reported. Blood cultures 4 staph aureus. Wound culture pending 02/13: Remains critically ill but stable to improving. WBC count is down to 16, creatinine improving to 2.36. Off all pressors. Urine output also improving. 1.5L in 24 hours 02/14: Extubated 02/13. Tolerating well. WBC now down to 12.8. Creat improving 2.3 to 2. UO 3.4L. remains off all pressors. Was started on Precedex yesterday night for agitation, currently on 0.5 g per KG per hour. Chest x-ray shows left more than right air space disease 02/20/17 Re consult: 62-year-old male who was originally admitted for lower extremity weakness and found to have what was thought to be possible transverse myelitis. His hospital course his included a healthcare associated pneumonia, septic thrombophlebitis, DVT. He was most recently in the hospital floor where he had significant nausea and vomiting and diarrhea. His C. difficile test was recently negative. However, he has experienced worsening acute on chronic renal failure, hypotension, tachycardia, and severe hypoxemia. He did have a bout of vomiting earlier today, and his hospitalist attending suspects that he may have aspirated. He arrives by rapid response to the ICU with a nonrebreather in place in severe respiratory distress with SPO2 of 85%. I emergently intubate the patient, see separate procedure note for details. At this point the patient was hypotensive and tachycardic. He does have a history of an EF of 20%, however clinically he appears in florid septic shock. I placed central line and arterial line started vasopressors and gentle IV fluid resuscitation with 1 L of LR. Patient today was empirically broadened to vancomycin and Zosyn from his oxacillin which was initially treating MSSA bacteremia. He is recultured. Critical-care medicine is consulted to evaluate and manage his worsening multiorgan system failure and decompensated septic shock 02/21: Patient remains intubated sedated. Becomes anxious tachypnea on sedation lightening. Chest x-ray shows mild left lower lobe infiltrate. WBC count is slightly improved today from 23.2 t0 21. C Diff negative. UO adequate, creat slightly worsening. 1.57 today 02/22: Remains intubated sedated tolerated CPAP yesterday, plan is for EGD/ Colonscopy. WBC count back to normal. UO adequate. Creat stable 02/23: Tolerating CPAP trials following commands. Will do a spontaneous breathing trials. Status post EGD colonoscopy yesterday -Gastritis, esophagitis. Diverticulosis and multiple polyps. Urine output adequate but creatinine increasing to 1.7 with patient requiring multiple straight catheterization. We'll reinsert Sloan. 02/24: Breathing comfortably 24 hours after extubation. Protects airway well. 02/25: Excoriate bottom, will place rectal FMS. Start pureed diet. 02/26: Afebrile. Complaining of nausea and vomiting this afternoon. Increased stool output. Continue potassium replacement today. 02/27: 10 PM overnight, acutely hypotensive. Received 3 units PRBCs. Antibiotic coverage broadened to piperacillin/tazobactam, cortisol and 1 dose of vancomycin. Oxacillin drip currently on hold. Symptomatically, patient continues to vague abdominal pain/nausea vomiting which is unchanged for the past several days. Lipase elevated yesterday. Lactic acid normal. Troponin normal. Urinary retention after removal of Sloan. Straight catheter 1300. Cc 02/28: New diagnosis large retroperitoneal hematoma. Received 10 PRBC, 14 FFP, 2 platelets, 1 cryo-, 6 g calcium chloride, 2 is magnesium sulfate and 4 mg Bumex. CTA abdomen revealed possible arterial bleeds iliac, lumbar. Patient is currently on norepinephrine and epinephrine drips and possible need right nephrostomy tube placement due to large hematoma compressing ureter. Intra-abdominal bladder pressures are currently 13 03/01: Afebrile. Received 25 g albumin and 1 unit PRBCs overnight. Intra- abdominal bladder pressures currently 19. Currently on 3 micrograms per minute of norepinephrine. Npcxn-nq-smld 1 out of 4 on 4 mics grams per kilogram per minute of cisatracurium. 03/02: Slightly hypothermic overnight. Hemoglobin appears to have stabilized. Troponin bump overnight likely secondary to demand ischemia from hypotension. Hemodynamically stable off all vasopressors. 03/03: Received 1 PRBCs overnight. 3 units currently. Off all vasopressors. Likely rebleeding. Stool is dark. 03/04: Remains unstable. Ventilator dependent. 03/05: afebrile. hgb stable. 03/06: bumex drip started overnight. good uop after bumex initiated. still grossly volume overloaded. Cr downtrending. more awake with transition to propofol. still too volume overloaded to tolerate extubation. hgb stable. 03/07: Afebrile. Tolerating tube feeds at goal with Nepro. Positive BM. On low-dose fentanyl and propofol drips. Potassium currently being replaced. 03/08: Eyes will open on ventilator. Afebrile. Tolerating tube feeding. Failed PSV trial yesterday due to apnea. 03/09: Following commands. Tmax 101. Tolerating tube feeding. One hour PSV trial yesterday. Currently tolerating well so far today 1.5 hours 03/10: Low-grade temperatures. Tolerating PSV trial 10 hours yesterday. Currently at 5/5 at 35%. We'll probably attempt extubation a.m. after hemodialysis. 03/11: Extubated currently in 4 L nasal cannula. Thick secretions thick clear with cough. Currently afebrile. Tolerating diet previously. 03/12: Sleepy this morning but arouses. Following commands. Refusing diet at the present time. On 2 L nasal cannula. 03/13: Patient reintubated last night for worsening respiratory status. Currently sedated on mechanical ventilation. Became hypotensive following intubation and is on Levophed 20 mics per minute. 03/14: Sedated, orally intubated on mech vent at the time of my evaluation this AM, subsequently underwent perc trach placement. Remains on levophed for pressor support. Transfused 1 unit PRBCs today. Persisten 03/15: Trach site clean, dry. CXR with bilateral basilar infiltrates. 03/16: Pulmonary congestion persists. Clinical condition not improving. Prognosis becoming increasingly bleak. 03/17: Glucose intolerance worse. No improvement in neurological function. 03/18: Remains on mechanical ventilation via tracheostomy. Off pressors now. Neurologic status remains poor. 03/19: Drowsy, encephalopathic, arousable. On mechanical ventilation via tracheostomy. Levemir increased for hyperglycemia today. Remains off pressors 03/20: More awake, moves both upper extremities. On mechanical ventilation via tracheostomy. Daily C Pap trials ongoing. 03/21: Awake and alert. On mechanical ventilation via tracheostomy. Opens and closes eyes on command. 03/22: Awake and alert. Tolerated T PIECE for 7 hours yesterday. Dialyzed today. 03/23: Currently on T piece trial. Status post dialysis yesterday on 3 L. Awake and alert. Wants to eat. Subjective 03/24: Currently afebrile. Hemodialysis catheter discontinued yesterday from left IJ. Persistent leukocytosis noted. Potassium will be replaced. Furosemide 40 mg twice a day IV to 20 mg IV twice a day 03/25: WBC count unchanged. Patient on T piece with humidified air greater than 48 hours, tolerating it well. Reconsulted 04/12: The patient was transferred emergently from the floor/ [facility]. Patient was initially seen by water filterer Dr. Estrada, and the patient was noted to be tachypneic on T piece of 40%. ABGs were performed which showed a PaO2 of 60 on T piece of FiO2 of 40%. Chest x-ray was performed which showed loss of entire left hemidiaphragm patient care nursing assistant consolidation in the left lower lobe. Concern for mucus plugging versus fluid. The patient was transferred emergently to [facility] placed on a ventilator CT of the chest is pending. Upon arrival in the room the patient is alert and oriented, mouthing words, nodding head to yes and no questions O2 sat is 100% but patient is currently on mechanical ventilation. Currently in no respiratory distress. 04/13: Tmax 99.8. The patient's oxygen requirements have decreased currently FiO2 35% with a PaO2 1 blood gas of 85, O2 saturation 100%. No respiratory distress noted. Patient underwent CT of the chest yesterday noted pleural effusions left greater than right, diagnostic/and therapeutic CT thoracentesis plan for this a.m.. 04/14: Patient underwent CT-guided thoracentesis of the right side with approximately 600 cc withdrawn. Today water filterer Dr. LABOY in and up size indwelling 6.0 Shiley to a 8.0 Shiley. Minimal bleeding noted around the site. X-ray improving. Patient started on CPAP trials today, as well as tube feeds were initiated. 04/15: Placed on T piece this morning via tracheostomy. Appears to be tolerating it. Laying in bed not in any acute distress. 04/16: Awake and alert. Tolerating T piece. Tolerating PEG feeds. 04/17: Awake and alert. Tolerating T piece. Tolerating tube feeds via PEG 04/18: Awake and alert. Tolerating TPs. Tolerating tube feeds. Passed swallow eval 04/19: Awake and alert. Remains on T piece. Wants to move out of ICU as he indicates to me once again as he has for the past few days. Awaiting [facility]IC bed 04/20: Awake and alert. Remains on T piece. Developed hypotension last night for which she was transiently on Levophed however has been off since early this morning. ID adjusting antibiotics and working up for new sepsis. 04/21: Awake and alert. On T piece. Awaiting [facility]IC bed for the last few days. 04/22: Awake and alert. Remains on T piece. Received 500 cc normal saline this morning for tachycardia. 04/23 No events overnight. Remains on TP's with 35% FIO2. Afebrile. 04/24: Resting comfortably. Got short of breath with Passy-Rafy valve which was taken off. 04/25: Remains on T piece. Awaiting transfer out of ICU. 04/26: Remains on T piece. Still awaiting transfer out of ICU since 04/17. 04/27 Patient became hypotensive, bradycardic and hypoxic, ABG on TP's last night showed acute hypercapnic resp acidosis (PH 7.10, CO2: 80) he was subsequently placed on mechanical ventilator. Patient was given Albumin, 2u PRBC and started on Levophed 3mics. Renal function worse today with Cr: 1.53 from 1.13 04/28 No events overnight off Levophed since yesterday. On no sedation. Afebrile. 04/29 Patient is on ventilator via trach. T;100.4 04/30 Patient remains on ventilator via trach. Afebrile. 05/01 No events overnight. Afebrile. 05/02 No events overnight. On ventilator via trach. T: 100.1 last night. 05/03 Patient remains on ventilator via trach. 05/04 No events overnight. Afebrile. Tolerating tube feeds. Objective Vital Signs Date Time Temp Pulse Resp B/P (MAP) Pulse Ox O2 Delivery O2 Flow Rate FiO2 05/04/17 08:20 96 35 05/04/17 06:00 92 05/04/17 04:00 98.2 21 119/56 (77) 05/02/17 04:00 Mechanical Ventilator Intake and Output 05/04/17 05/04/17 05/05/17 08:00 16:00 00:00 Intake Total 1461 ml Output Total 1600 ml Balance -139 ml Result Diagram: 05/04/17 0537 05/04/17 0537 Other Results Laboratory Tests Test 05/04/17 05:37 White Blood Count 19.5 TH/MM3 Red Blood Count 2.65 MIL/MM3 Hemoglobin 7.2 GM/DL Hematocrit 22.8 % Mean Corpuscular Volume 86.1 FL Mean Corpuscular Hemoglobin 27.1 PG Mean Corpuscular Hemoglobin Concent 31.4 % Red Cell Distribution Width 18.3 % Platelet Count 188 TH/MM3 Mean Platelet Volume 8.2 FL Neutrophils (%) (Auto) 73.7 % Lymphocytes (%) (Auto) 5.7 % Monocytes (%) (Auto) 7.0 % Eosinophils (%) (Auto) 13.4 % Basophils (%) (Auto) 0.2 % Neutrophils # (Auto) 14.4 TH/MM3 Lymphocytes # (Auto) 1.1 TH/MM3 Monocytes # (Auto) 1.4 TH/MM3 Eosinophils # (Auto) 2.6 TH/MM3 Basophils # (Auto) 0.0 TH/MM3 CBC Comment AUTO DIFF Differential Total Cells Counted 100 Neutrophils % (Manual) 52 % Band Neutrophils % 13 % Lymphocytes % 15 % Monocytes % 2 % Eosinophils % 8 % Neutrophils # (Manual) 14.6 TH/MM3 Metamyelocytes 4 % Myelocytes 6 % Nucleated Red Blood Cells 1 /100 WBC Differential Comment FINAL DIFF MANUAL Platelet Estimate NORMAL Platelet Morphology Comment NORMAL Blood Urea Nitrogen 70 MG/DL Creatinine 2.04 MG/DL Random Glucose 163 MG/DL Calcium Level 9.8 MG/DL Sodium Level 146 MEQ/L Potassium Level 3.1 MEQ/L Chloride Level 111 MEQ/L Carbon Dioxide Level 25.2 MEQ/L Anion Gap 10 MEQ/L Estimat Glomerular Filtration Rate 33 ML/MIN Imaging Last Impressions Chest X-Ray 05/03/17 0000 Signed Impressions: Service Date/Time: April 10:19 - CONCLUSION: 1. Poor lung aeration 2. Interstitial vascular prominence 3. Significant left lung opacity characteristic of moderate pleural effusion and underlying basilar air space disease. Lenny Ware MD Thoracentesis 04/13/17 1054 Signed Impressions: Service Date/Time: Thursday, April 13, 2017 15:26 - CONCLUSION: Uncomplicated CT-guided right thoracentesis. Candido Mendoza Jr., MD Chest CT 04/12/17 1558 Signed Impressions: Service Date/Time: March 17:51 - CONCLUSION: 1. Slight increase in size of bilateral effusions and basilar atelectasis, left greater than right compared with February 27. Tracheostomy in good position. Trace Holloway MD Renal Ultrasound 04/02/17 0000 Signed Impressions: Service Date/Time: Sunday, April 02, 2017 16:59 - CONCLUSION: Limited exam with the left kidney being unable to be evaluated in the bladder not distended. There do appear to be multiple shadowing stones at the right kidney without hydronephrosis. Angelo Manzo MD Wrist X-Ray 03/27/17 0000 Signed Impressions: Service Date/Time: Monday, March 27, 2017 13:21 - CONCLUSION: 1. No acute fracture is identified. A portion of the previously documented distal ulna fracture remains visualized. 2. 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 Angelo Allen MD Aortography 02/28/17 0000 Signed Impressions: Service Date/Time: Tuesday, February 28, 2017 08:01 - CONCLUSION: 1. Active hemorrhage from distal right lateral sacral and iliolumbar branches successfully coil and Gelfoam embolized, as above. Juan Bhakta MD Abdomen/Pelvis CT 02/28/17 0000 Signed Impressions: Service Date/Time: Tuesday, February 28, 2017 06:51 - CONCLUSION: 1. The right retroperitoneal hematoma has increased in size, as above. There are 2 serpiginous arterially enhancing structures visualized, one in the right psoas muscle and another extending into the hematoma at the right iliac fossa. These could represent sites of continued active bleeding. 2. Stable moderate size left and small right pleural effusion with associated compressive atelectasis. 3. Stable small volume of free fluid in the abdomen and pelvis. There is also anasarca. The findings concerning the retroperitoneal hematoma were discussed with Dr. Aguiar via telephone at approximately 7: 10 AM on 02/28/2017. Angelo Allen MD Abdomen X-Ray 10/9/17 0000 Signed Impressions: Service Date/Time: Sunday, February 26, 2017 14:52 - CONCLUSION: 1. Nonobstructive bowel gas pattern. Juan Bhakta MD Upper Extremity Ultrasound 02/10/17 Signed Impressions: Service Date/Time: Friday, February 10, 2017 18:46 - CONCLUSION: Occlusive thrombus in the cephalic and basilic veins. Benjamin Person MD Lung Scan-V Nuclear Medicine 02/10/17 Signed Impressions: Service Date/Time: Friday, February 10, 2017 22:17 - CONCLUSION: Low probability pulmonary embolism. Candido Patton MD Head CT 02/10/17 Signed Impressions: Service Date/Time: Friday, February 10, 2017 23:51 - CONCLUSION: Negative noncontrast CT brain. Candido Patton MD Lumbar Puncture Fluoroscopy 02/01/17 Signed Impressions: Service Date/Time: January 09:35 - CONCLUSION: Uncomplicated fluoroscopically guided lumbar puncture. CSF was clear. Nabeel Peralta MD Head Magnetic Resonance Angiography 01/27/17 Signed Impressions: Service Date/Time: Friday, January 27, 2017 10:33 - CONCLUSION: No intracranial vascular abnormality is identified. There is no aneurysm visualized. Angelo Allen MD IVC Filter Placement X-Ray 01/25/17 Signed Impressions: Service Date/Time: January 10:29 - CONCLUSION: Uncomplicated inferior vena cava filter placement as above. Yung Fowler MD Thoracic Spine MRI 01/24/17 Signed Impressions: Service Date/Time: Tuesday, January 24, 2017 22:29 - CONCLUSION: 1. Mild degenerative spondylosis most prominently at T11-L1 with slight effacement of the anterior thecal sac and left lateral recess. No significant neural foraminal stenosis. 2. No acute fracture. Juan Bhakta MD Lumbar Spine MRI 01/23/17 Signed Impressions: Service Date/Time: Monday, January 23, 2017 17:01 - CONCLUSION: 1. At L4-5 is a broad-based disc protrusion with severe central canal and lateral recess stenosis and flattening of the exiting right L4 nerve root. 2. L5-S1 there is a disc protrusion and moderate stenosis with flattening of the exiting L5 nerve roots bilaterally. 3. At L3-4 there is a moderate to severe central stenosis and lateral recess stenosis with mild foraminal stenosis. 4. No acute fracture or spondylolisthesis. Trace Holloway MD Lower Extremity Ultrasound 01/23/17 Signed Impressions: Service Date/Time: Monday, January 23, 2017 09:53 - CONCLUSION: Bilateral focal lower extremity DVT involving the posterior tibial veins. Angelo Garrido MD Cervical Spine MRI 01/23/17 Signed Impressions: Service Date/Time: Monday, January 23, 2017 17:01 - CONCLUSION: 1. Multilevel cervical spine degenerative changes as above. 2. Mild degrees of spinal stenosis at C3/C4-C6/C7. No cord compression or cord signal abnormality. 3. Age indeterminate left paracentral/foraminal disc protrusion at C6/C7. 4. Multilevel foraminal stenosis, most severe on the left at C6/C7. Please see individual levels above. 5. No fracture or subluxation of the cervical spine. Angelo Garrido MD Brain MRI 01/23/17 Signed Impressions: Service Date/Time: Monday, January 23, 2017 17:01 - CONCLUSION: 1. No acute stroke or other acute intracranial abnormality demonstrated. 2. Moderate severity chronic white matter changes, nonspecific but most likely related to chronic small vessel disease. 3. Few scattered tiny lacunar infarcts of the brainstem. 4. Given the findings are not entirely specific, clinical evaluation for possible multiple sclerosis recommended. Angelo Garrido MD Knee X-Ray [id number]/22/[id number] Signed Impressions: Service Date/Time: Sunday, January 22, 2017 21:17 - CONCLUSION: 1. Evidence of moderate to large joint effusion. 2. No acute fracture or malalignment. 3. Mild 3 compartment osteoarthritic change. Benjamin Person MD Hip and Pelvis X-Ray [id number] Signed Impressions: Service Date/Time: Sunday, January 22, 2017 21:10 - CONCLUSION: 1. Mild to moderate degenerative change of both hips with no acute fracture or malalignment. There is flattening and remodeling of the right humeral head. Benjamin Person MD Objective Remarks GENERAL: 62-year-old male, resting in bed, on mechanical ventilation via trach HEENT: Normocephalic. Atraumatic. Pupils equal, round, reactive. NECK: Tracheostomy in place, around trach site erythematous, yellowish drainage CHEST: b/l equal air entry CARDIOVASCULAR: Tachycardic S1-S2 regular, no gallop or murmur ABDOMEN distended. No rigidity. Umbilical hernia is reducible. No guarding. PEG tube in place : Positive scrotal edema Sloan in situ MUSCULOSKELETAL: Pulses 2+. 1+ bilateral upper and lower extremity edema. NEUROLOGICAL: Awake and alert, has spontaneous eye opening. Opens and closes eyes on command. Moves 4 limbs weakly to stimulation. Procedures 01/25/2017- Retrievable IVC Filter placement 01/26/17-lumbar puncture with fluoroscopy-by interventional radiology 02/01/17- lumbar puncture fluoroscopy by interventional radiology 02/10/17- Endotracheal Intubation 02/10/17-left IJ central venous line placed 02/10/17-left femoral arterial line placed 02/11/17-Diagnostic and therapeutic bronchoscopy with bronchoalveolar lavage 02/11/17-Left upper extremity incision and debridement with excision of septic cephalic vein 02/13/17- Extubated 02/20/17- endotracheal intubation 02/20/17- Left subclavian central line placement 02/20/17-Right radial A-line placement 02/22/17-EGD/colonoscopy 02/28/17-right radial a line 02/28/17- Endotracheal intubation 02/28/17- right sided introducer catheter placement 02/28/17- Right IJ central line placement 02/28/17-Right chest tube placement 02/28/17- Embolization of inferior and superior sacral branches of right internal iliac artery 03/01/17- Hemodialysis access catheter 03/03/17-Right IJ central line placement 03/11/17-Extubated 03/13/17- Endotracheal intubation 03/14/17-Tracheostomy placement, trach downsized to 6.0 Anni 03/30/17 03/15/17-PEG tube placement 04/11/17-CT Chest 04/13/17-thoracentesis right 600 cc removed Date of Insertion: Feb 20, 2017 Date of Insertion: Mar 03, 2017 Line: Central Venous Catheter Side: Right Location: Internal, Jugular A/P Problem List: (1) Septic shock ICD Code: A41.9 - Sepsis, unspecified organism; R65.21 - Severe sepsis with septic shock Status: Acute (2) Acute respiratory failure ICD Code: J96.00 - Acute respiratory failure, unspecified whether with hypoxia or hypercapnia Status: Acute (3) Thrombophlebitis arm ICD Code: I80.8 - Phlebitis and thrombophlebitis of other sites (4) Aspiration pneumonia ICD Code: J69.0 - Pneumonitis due to inhalation of food and vomit Status: Acute (5) Atelectasis of left lung ICD Code: J98.11 - Atelectasis Status: Acute (6) Quadriparesis ICD Code: G82.50 - Quadriplegia, unspecified Status: Acute (7) DVT (deep venous thrombosis) ICD Code: I82.409 - Acute embolism and thrombosis of unspecified deep veins of unspecified lower extremity (8) Altered mental status ICD Code: R41.82 - Altered mental status, unspecified Status: Acute (9) CKD (chronic kidney disease) stage 3, GFR 30-59 ml/min ICD Code: N18.3 - Chronic kidney disease, stage 3 (moderate) Status: Chronic (10) Acute renal failure ICD Code: N17.9 - Acute kidney failure, unspecified Status: Acute (11) Diabetes mellitus ICD Code: E11.9 - Type 2 diabetes mellitus without complications Status: Chronic (12) Distal end of ulna fracture, closed ICD Code: S52.609A - Unspecified fracture of lower end of unspecified ulna, initial encounter for closed fracture Status: Acute (13) Gout ICD Code: M10.9 - Gout, unspecified Status: Chronic Assessment and Plan Assessment: NEURO/PSYCH: Acute metabolic encephalopathy- persistent Quadriparesis secondary to suspected transverse myelitis Recurrent falls On no sedation. Monitor neuro status. Suspected transverse myelitis. Received methylprednisolone 250 mg IV every 6 hours 01/27-02/02, started back on hydrocortisone 02/21/17, initially tapering to 50 mg IV every 8 hours starting received 1 dose at 2100 prior to becoming hypotensive. weaning hydrocortisone taper and stopped 03/09. Resumed hydrocortisone 50mg IV Q6hrly on 03/14 as patient became hypotensive following intubation on 03/13 requiring levophed. Continue Cortef 10mg Q12 LP 01/26 and 02/01. CSF culture negative 01/26, 02/01 Oligoclonal bands negative. CSF/serum IgG index is not elevated. VDRL nonreactive. Cryptococcal antigen negative. Brain MRI 01/23 no acute stroke. Few scattered lacunar infarcts of the brainstem. Moderate chronic white matter changes. MRI cervical/thoracic spine- mild spinal stenosis C3/C4 to C6/C7. No cord compression. RPR negative Neurology has been following, Dr. Crenshaw. Repeat CT brain 02/10 - negative Continue PT/OT Continue oxycodone 10 mg every 4 hours scheduled RESP: Acute hypoxemic respiratory failure Healthcare associated pneumonia/Aspiration Pneumonia S/P Right-sided chest tube 02/28 Continue with vent support keep sat >92% Bronchodilators, pulm toilet, trach care s/p perc tracheostomy 03/14. Pulmonology following Dr. Estrada -check CXR 04/13 CT guided thoracentesis scheduled emergently as discussed with Dr. Estrada - 600cc removed (right) 04/14-tracheostomy up sized to 8.[address] [place] [address] Estrada at bedside CV: Systolic heart failure likely chronic with ejection fraction 20-25% Hyperlipidemia History of hypertension Mild TR Sinus tachycardia Elevated troponin likely type II demand ischemia On Lopressor 25mg Q12- Monitor HR and BP keep MAP>65mmHg Atorvastatin 10 mg by mouth daily for dyslipidemia. 2-D echocardiogram 01/11 revealed EF 20-25%. Mild TR. Pulmonary arterial pressures were normal around 20 GI: Large right retroperitoneal hematoma Erosive esophagitis Adematous/hyperplastic colon polyps Severe acute protein calorie malnutrition Nausea/vomiting - resolved. Diarrhea Gastritis Diverticulosis Internal and external hemorrhoids Hiatal hernia Elevated lipase On tube feeds-Nepro@ 40ml/hr 02/27 CT chest/abdomen and pelvis - 9.4 x 7.5 renal and 16 x 12 cm right psoas muscle hematoma. Fluid around liver and spleen. Right-sided nephrolithiasis CTA abdomen 02/28 - possible blushing around iliac/lumbar vessels Discussed with IR. s/p attempted embolization CT abdomen and pelvis 02/10 atrophic left kidney. Bilateral inguinal hernias fat- containing. Nonobstructing 12 mm right kidney stone repeat CT abd/pelvis did not show evidence of obstruction. patient clinically has been having diarrhea (c. diff negative 02/19). also with nausea/vomiting of unclear etiology. EGD/Colonoscopy-02/22/17 showed gastritis esophagitis, hiatal hernia, diverticulosis and multiple polyps in descending colon and sigmoid which were snared biopsied. Biopsy pending Status post PEG tube placement Lansoprazole 30 mg twice a day for GI prophylaxis FEN/RENAL: Acute kidney injury in the setting of Chronic kidney disease stage 3-4 History of uric acid kidney stones with prior stent BPH Nonfunctioning left kidney Monitor renal function, electrolytes replacement as needed Cr: 2.04 Renal is following- Dr. Liao. On Lasix 20mg Q12, IV Albumin Change Free water 250ml Q6, monitor sodium level.. RIOS/SPEP negative. 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 Recommended nephrostomy tube if obstruction Nephrology consulted, off hemodialysis. Making urine. ICU electrolyte replacement protocol Last IHD was 03/22 ID: Septic shock- resolved. Abscess and Suppurative thrombophlebitis left upper extremity MSSA bacteremia Klebsiella UTI ESBL positive Acute aspiration pneumonia/HCAP 04/27 Sputum cx: Pseudomonas, Urine cx: Ivania Bustillo , BC: 05/24 bottles: Coag negative staph likely contaminant 04/29 BC: NGTD 05/01 Wound cx: Pseudomonas, Group D enterococcus, GNR Previously treated with Bactrim, ertapenem, intermittent vancomycin, nafcillin Blood cultures 2, UA ESBL positive Klebsiella UTI Sputum 03/14 - Pseudomonas came back resistant to imipenem, Stenotrophomonas maltophilia Antibiotics per ID. on Diflucan, Zerbaxa, ID is following. C-diff PCR negative wound service is following. stage IV sacral ulcer, ulcer right ankle/LE HEME: Acute blood loss anemia DVT, bilateral posterior tibial vein, IVC filter Septic thrombophlebitis with occlusive thrombus mid cephalic and basilic vein side Monitor CBC s/p transfusion 2units PRBC ( 04/26) Received 10 PRBC, 14 FFP, 2 platelets, 1 cryo-02/28 Received 3 units PRBCs Ultrasound 01/23/17 - Bilateral lower extremity with occlusive posterior tibial vein DVTs. Heparin was initially started for DVT but was placed on hold due to LP with suspected traumatic tap. Currently holding full anticoagulation with enoxaparin 100 mg IV twice a day due to anemia as of 02/26 IVC filter was placed 01/25/17. Ultrasound LUE 02/10 occlusive thrombus mid cephalic vein, basilic vein.s. Transfuse 3 units PRBCs 02/27 Transfuse 2 units PRBCs 03/01. Transfused 1 unit PRBCs on 03/14 ENDO: Diabetes mellitus Hypoglycemia History of prior adrenal insufficiency with shock Gout Accu-Cheks to maintain euglycemia Novulin R every 4 hours. Low Regimen MSK: Right distal ulna fracture. Recommended nonoperative management. PROPH: Lansoprazole 30 mg twice a day twice a day for stress ulcer prophylaxis. Has IVC filter. Therapeutic enoxaparin was placed on hold for retroperitoneal hematoma ACCESS: Right subclavian CVP placed 04/27 Level 3 Problem Qualifiers (1) Aspiration pneumonia: (2) DVT (deep venous thrombosis): Qualified Codes: I82.443 - Acute embolism and thrombosis of tibial vein, bilateral (3) Acute renal failure: Qualified Codes: N17.9 - Acute kidney failure, unspecified (4) Diabetes mellitus: (5) Gout: Hood Madera MD May 04, 2017 08:52
[2017-05-04] MEDS: SODIUM CHLORIDE 0.9% FLUSH 10 ML FLUSH IV FLUSH SCH ×3 (09:00→20:44)
[2017-05-04] MEDS: TAMSULOSIN HCL 0.4 MG CAP PO SCH ×2 (09:00→20:44)
[2017-05-04] MEDS: POTASSIUM CHLOR 20 MEQ PREMIX 100 ML IV SCH ×2 (09:21→11:26)
[2017-05-04] MEDS: FLUCONAZOLE 200 MG TAB PO SCH (09:21)
[2017-05-04] MEDS: LANSOPRAZOLE SOLUTAB 30 MG TAB NG SCH ×2 (09:21→20:43)
[2017-05-04] MEDS: LACTOBACILLUS ACIDOPHILUS TAB PO SCH ×3 (09:21→17:36)
[2017-05-04] MEDS: CHOLESTYRAMINE 4 GM PACKET G-TUBE SCH ×2 (09:21→20:43)
[2017-05-04] MEDS: METOPROLOL TARTRATE 25 MG TAB PO SCH ×2 (09:21→20:43)
[2017-05-04] MEDS: QUEtiapine FUMARATE 25 MG TAB PO SCH (09:21)
[2017-05-04] MEDS: COLLAGENASE OINT 30 GM TUBE TOPICAL SCH (09:23)
--- NOTE | 2017-05-04 13:16 | HHI.IDPN ---
Subjective Subjective Remarks Patient is a 62-year-old male, admitted to the hospital for evaluation of pain in his right wrist. He gave a history of falling about a week ago and apparently had immediate pain in the right wrist. He did not seek any medical attention initially because reportedly he was very busy. He eventually presented, and he was found to have a distal ulnar fracture on plain films. He also had some redness and swelling. Orthopedics saw the patient, and was being treated conservatively with the splint. During this hospitalization also he started complaining of generalized weakness but more so in his lower extremity than his upper extremity. He had swelling in both lower extremity which revealed evidence of DVT in the posterior tibial veins. Neurology had seen the patient and he underwent lumbar puncture which apparently was traumatic. Patient was therefore not given anticoagulation because of the traumatic LP, and he underwent placement of an IVC filter on January 25. Patient had another lumbar puncture on February 01. He was felt to have transverse myelitis, and he was given high-dose IV Solu-Medrol from January 27 to February 02. There was apparently some improvement in his weakness. The imaging studies done for his weakness showed some spinal stenosis, and neurosurgery was consult that and recommended that there was no surgical intervention to be done. Patient has been stabilizing, but last night apparently deteriorated, and he ended up getting intubated, and had significant hypotension requiring pressors. There was also an ultrasound done of his left upper extremity which showed DVT, and there was evidence of superior 2 thrombophlebitis. Vascular surgery was consult to it and he had IND on his left upper extremity. Patient has had some fevers since yesterday. 2 blood cultures were done yesterday and they're now reported as growing gram-positive cocci in [place] in clusters. He is currently sedated and intubated. He is on Levophed and vasopressin. A central line was placed as well as a femoral a line. He apparently had an IV in his left upper extremity and that was removed yesterday. Patient also has history of chronic kidney disease, and nephrology evaluated the patient. He was just being monitored for his renal insufficiency. Reconsulted 04/12 for low grade fever, leucocytosis, worsening CXR concern for new pneumonia. Notes reviewed Temps ok Remains on the vent Has thick, moderate, baker secretions needing frequent suctioning. WBC slightly lower Creatinine increasing again Antibiotics Current Medications Diflucan Zerbaxa Medications (Trade) Dose Ordered Sig/Rosalia Route Start Time Stop Time Status Last Admin (NS Flush) 2 ml UNSCH PRN IV FLUSH 01/23/17 00:30 04/27/17 09:22 (NS Flush) 2 ml BID IV FLUSH 01/23/17 09:00 05/03/17 20:03 (Zofran Inj) 4 mg Q6H PRN IVP 01/23/17 00:30 02/26/17 17:23 (Narcan Inj) 0.4 mg UNSCH PRN IV 01/23/17 00:30 (Edna-Colace) 1 tab BID PO 01/23/17 09:00 Future Hold 02/24/17 20:31 (Dulcolax Supp) 10 mg DAILY PRN RECTAL 01/23/17 00:30 (Lipitor) 10 mg HS PO 01/24/17 21:00 Future hold 05/03/17 20:02 (Glucagon Inj) 1 mg UNSCH PRN OTHER 02/11/17 05:45 02/18/17 18:53 (Flomax) 0.4 mg Q12HR PO 02/17/17 15:00 Future hold 05/03/17 09:57 (Lovenox Inj) 100 mg Q12H SQ 02/18/17 12:00 Future Hold 02/26/17 16:20 (Lactinex) 1 tab TID PO 02/19/17 13:00 05/04/17 11:26 (D50w (Vial) Inj) 25 ml UNSCH PRN IV PUSH 02/20/17 12:45 03/27/17 13:20 (Questran Light Pkt) 4 gm Q12HR PO 02/25/17 21:00 Future Hold 02/27/17 10:32 (Aldactone) 25 mg DAILY PO 02/27/17 09:00 Future Hold (Peridex 0.12% Liq) 15 ml BID@08,20 MT 02/28/17 08:00 05/03/17 20:03 (NS Flush) UNSCH PRN IV FLUSH 03/01/17 13:00 (Heparin Inj) UNSCH PRN IV FLUSH 03/01/17 13:00 (NS Flush) DAILY IV FLUSH 03/04/17 09:00 05/04/17 09:22 (NS Flush) UNSCH PRN IV FLUSH 03/03/17 18:45 (Prevacid Odt) 30 mg BID NG 03/07/17 21:00 05/04/17 09:21 (Tylenol 650 Mg/ 20 ml Liq) 650 mg Q6H PRN PO 03/09/17 10:15 04/30/17 12:01 (Tenormin) 25 mg Q12HR PO 03/12/17 10:00 Future Hold 04/18/17 10:09 (Epogen Inj) 10,000 units UNSCH PRN IV PUSH 03/17/17 11:30 03/22/17 10:52 (Nitroglycerin 2% Oint) 2 inch Q6H PRN TOPICAL 03/23/17 14:00 03/29/17 01:20 (Norvasc) 10 mg DAILY PO 03/28/17 09:00 Future Hold 04/19/17 08:16 (Roxicodone Intensol Liq) 5 mg Q4H PO 04/01/17 18:00 05/04/17 09:22 (NovoLOG INJ) 5 units TIDAC SQ 04/03/17 17:00 Future Hold 04/10/17 08:00 (Xanax) 0.125 mg Q6H PRN PO 04/03/17 22:30 04/25/17 14:27 (Pill Splitter) 1 ea UNSCH PRN OTHER 04/03/17 22:45 (Levsin Liq) 0.125 mg Q4H PRN G-TUBE 04/06/17 15:00 04/12/17 10:09 (Questran 4 Gm Pkt) 4 gm Q12HR G-TUBE 04/08/17 21:00 05/04/17 09:21 (SEROquel) 25 mg DAILY PO 04/09/17 09:00 05/04/17 09:21 (Santyl Oint) 1 applic DAILY TOPICAL 04/10/17 09:00 05/04/17 09:23 (Cortef) 10 mg Q12H PO 04/10/17 18:00 05/04/17 05:22 (Lasix Inj) 40 mg BID@,18 IV PUSH 04/12/17 18:00 Future Hold 04/19/17 17:15 (Duoneb Neb) 1 ampule Q2HR NEB PRN NEB 04/12/17 17:00 05/02/17 04:45 (Lopressor Inj) 2.5 mg Q6H PRN IV PUSH 04/23/17 01:15 04/23/17 09:36 (NovoLOG SUPPLEMENTAL SCALE) 1 Q6H SQ 04/27/17 18:00 05/04/17 11:29 (Diflucan) 200 mg DAILY PO 04/29/17 14:00 05/04/17 09:21 Ceftolozane/ Tazobactam 1500 mg/Sodium Chloride 100 ml @ 100 mls/hr Q8H IV 04/29/17 14:00 05/04/17 05:21 Albumin Human 100 ml @ 60 mls/hr Q12H IV 04/30/17 17:00 05/04/17 03:41 (Lasix Inj) 20 mg Q12H IV PUSH 04/30/17 18:00 05/04/17 05:21 (Lopressor) 25 mg Q12HR PO 05/02/17 10:45 05/04/17 09:21 (Free Water) 250 ml Q6HR G-TUBE 05/04/17 12:00 05/04/17 11:27 Lines Central line - 04/27 Past Medical History Reviewed Allergies: Coded Allergies: levofloxacin (Verified Allergy, Severe, 01/22/17) Objective . Vital Signs Date Time Temp Pulse Resp B/P (MAP) Pulse Ox O2 Delivery O2 Flow Rate FiO2 05/04/17 10:22 21 05/04/17 08:20 96 35 05/04/17 08:00 35 05/04/17 08:00 93 05/04/17 08:00 98.4 93 22 127/62 (83) 97 05/04/17 08:00 92 05/04/17 06:00 92 05/04/17 04:00 35 05/04/17 04:00 98.2 91 21 119/56 (77) 97 05/04/17 04:00 91 05/04/17 03:10 98 35 05/04/17 02:00 92 05/04/17 00:33 98 35 05/04/17 00:00 98.2 89 25 112/55 (74) 98 05/04/17 00:00 89 05/04/17 00:00 35 05/03/17 22:00 90 05/03/17 20:25 95 35 05/03/17 20:00 35 05/03/17 20:00 93 05/03/17 20:00 98.4 93 22 113/54 (73) 96 05/03/17 18:00 96 05/03/17 16:00 35 05/03/17 16:00 101 05/03/17 16:00 98.3 101 23 117/59 (78) 95 05/03/17 14:00 92 05/03/17 13:34 97 35 . Laboratory Tests Test 05/03/17 05:45 05/04/17 05:37 White Blood Count 20.5 TH/MM3 19.5 TH/MM3 Red Blood Count 2.81 MIL/MM3 2.65 MIL/MM3 Hemoglobin 7.7 GM/DL 7.2 GM/DL Hematocrit 24.1 % 22.8 % Mean Corpuscular Volume 85.9 FL 86.1 FL Mean Corpuscular Hemoglobin 27.5 PG 27.1 PG Mean Corpuscular Hemoglobin Concent 32.1 % 31.4 % Red Cell Distribution Width 17.8 % 18.3 % Platelet Count 192 TH/MM3 188 TH/MM3 Mean Platelet Volume 8.1 FL 8.2 FL Neutrophils (%) (Auto) 75.2 % 73.7 % Lymphocytes (%) (Auto) 6.5 % 5.7 % Monocytes (%) (Auto) 6.7 % 7.0 % Eosinophils (%) (Auto) 11.5 % 13.4 % Basophils (%) (Auto) 0.1 % 0.2 % Neutrophils # (Auto) 15.4 TH/MM3 14.4 TH/MM3 Lymphocytes # (Auto) 1.3 TH/MM3 1.1 TH/MM3 Monocytes # (Auto) 1.4 TH/MM3 1.4 TH/MM3 Eosinophils # (Auto) 2.4 TH/MM3 2.6 TH/MM3 Basophils # (Auto) 0.0 TH/MM3 0.0 TH/MM3 CBC Comment AUTO DIFF AUTO DIFF Differential Total Cells Counted 100 100 Neutrophils % (Manual) 52 % 52 % Band Neutrophils % 9 % 13 % Lymphocytes % 16 % 15 % Monocytes % 4 % 2 % Eosinophils % 5 % 8 % Neutrophils # (Manual) 15.4 TH/MM3 14.6 TH/MM3 Metamyelocytes 5 % 4 % Myelocytes 9 % 6 % Differential Comment FINAL DIFF MANUAL FINAL DIFF MANUAL Platelet Estimate NORMAL NORMAL Platelet Morphology Comment NORMAL NORMAL Nucleated Red Blood Cells 1 /100 WBC Laboratory Tests Test 05/03/17 05:45 05/04/17 05:37 Blood Urea Nitrogen 69 MG/DL 70 MG/DL Creatinine 2.15 MG/DL 2.04 MG/DL Random Glucose 140 MG/DL 163 MG/DL Calcium Level 9.6 MG/DL 9.8 MG/DL Sodium Level 146 MEQ/L 146 MEQ/L Potassium Level 3.6 MEQ/L 3.1 MEQ/L Chloride Level 113 MEQ/L 111 MEQ/L Carbon Dioxide Level 25.5 MEQ/L 25.2 MEQ/L Anion Gap 8 MEQ/L 10 MEQ/L Estimat Glomerular Filtration Rate 31 ML/MIN 33 ML/MIN Imaging Chest X-Ray 04/27/17 0600 Signed Impressions: Service Date/Time: Thursday, April 27, 2017 05:19 - CONCLUSION: Improved aeration. Cornel Harrison MD Chest X-Ray 04/26/17 0000 Signed Impressions: Service Date/Time: April 23:35 - CONCLUSION: Right central venous catheter placement. Worsening appearance of the chest. Cornel Harrison MD Chest X-Ray 04/17/17 0000 Signed Impressions: Service Date/Time: Monday, April 17, 2017 03:40 - CONCLUSION: Mild left effusion and possible accompanying atelectasis or consolidation at the left base Angelo Manzo MD Thoracentesis 04/13/17 1054 Signed Impressions: Service Date/Time: Thursday, April 13, 2017 15:26 - CONCLUSION: Uncomplicated CT-guided right thoracentesis. Candido Mendoza Jr., MD Chest CT 04/12/17 1558 Signed Impressions: Service Date/Time: March 17:51 - CONCLUSION: 1. Slight increase in size of bilateral effusions and basilar atelectasis, left greater than right compared with February 27. Tracheostomy in good position. Trace Holloway MD Renal Ultrasound 04/02/17 0000 Signed Impressions: Service Date/Time: Sunday, April 02, 2017 16:59 - CONCLUSION: Limited exam with the left kidney being unable to be evaluated in the bladder not distended. There do appear to be multiple shadowing stones at the right kidney without hydronephrosis. Angelo Manzo MD Wrist X-Ray 03/27/17 0000 Signed Impressions: Service Date/Time: Monday, March 27, 2017 13:21 - CONCLUSION: 1. No acute fracture is identified. A portion of the previously documented distal ulna fracture remains visualized. 2. 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 Angelo Allen MD Aortography 02/28/17 0000 Signed Impressions: Service Date/Time: Tuesday, February 28, 2017 08:01 - CONCLUSION: 1. Active hemorrhage from distal right lateral sacral and iliolumbar branches successfully coil and Gelfoam embolized, as above. Juan Bhakta MD Abdomen/Pelvis CT 02/28/17 0000 Signed Impressions: Service Date/Time: Tuesday, February 28, 2017 06:51 - CONCLUSION: 1. The right retroperitoneal hematoma has increased in size, as above. There are 2 serpiginous arterially enhancing structures visualized, one in the right psoas muscle and another extending into the hematoma at the right iliac fossa. These could represent sites of continued active bleeding. 2. Stable moderate size left and small right pleural effusion with associated compressive atelectasis. 3. Stable small volume of free fluid in the abdomen and pelvis. There is also anasarca. The findings concerning the retroperitoneal hematoma were discussed with Dr. Aguiar via telephone at approximately 7: 10 AM on 02/28/2017. Angelo Allen MD Abdomen X-Ray 02/26/17 0000 Signed Impressions: Service Date/Time: Sunday, February 26, 2017 14:52 - CONCLUSION: 1. Nonobstructive bowel gas pattern. Juan Bhakta MD Upper Extremity Ultrasound 02/10/17 0000 Signed Impressions: Service Date/Time: Friday, February 10, 2017 18:46 - CONCLUSION: Occlusive thrombus in the cephalic and basilic veins. Benjamin Person MD Lung Scan- Nuclear Medicine 02/10/17 0000 Signed Impressions: Service Date/Time: Friday, February 10, 2017 22:17 - CONCLUSION: Low probability pulmonary embolism. Candido Patton MD Head CT 02/10/17 0000 Signed Impressions: Service Date/Time: Friday, February 10, 2017 23:51 - CONCLUSION: Negative noncontrast CT brain. Candido Patton MD Lumbar Puncture Fluoroscopy 02/01/17 Signed Impressions: Service Date/Time: January 09:35 - CONCLUSION: Uncomplicated fluoroscopically guided lumbar puncture. CSF was clear. Nabeel Peralta MD Head Magnetic Resonance Angiography 01/27/17 Signed Impressions: Service Date/Time: Friday, January 27, 2017 10:33 - CONCLUSION: No intracranial vascular abnormality is identified. There is no aneurysm visualized. Angelo Allen MD IVC Filter Placement X-Ray 01/25/17 Signed Impressions: Service Date/Time: January 10:29 - CONCLUSION: Uncomplicated inferior vena cava filter placement as above. Yung Fowler MD Thoracic Spine MRI 01/24/17 Signed Impressions: Service Date/Time: Tuesday, January 24, 2017 22:29 - CONCLUSION: 1. Mild degenerative spondylosis most prominently at T11-L1 with slight effacement of the anterior thecal sac and left lateral recess. No significant neural foraminal stenosis. 2. No acute fracture. Juan Bhakta MD Lumbar Spine MRI 01/23/17 Signed Impressions: Service Date/Time: Monday, January 23, 2017 17:01 - CONCLUSION: 1. At L4-5 is a broad-based disc protrusion with severe central canal and lateral recess stenosis and flattening of the exiting right L4 nerve root. 2. L5-S1 there is a disc protrusion and moderate stenosis with flattening of the exiting L5 nerve roots bilaterally. 3. At L3-4 there is a moderate to severe central stenosis and lateral recess stenosis with mild foraminal stenosis. 4. No acute fracture or spondylolisthesis. Trace Holloway MD Lower Extremity Ultrasound 01/23/17 Signed Impressions: Service Date/Time: Monday, January 23, 2017 09:53 - CONCLUSION: Bilateral focal lower extremity DVT involving the posterior tibial veins. Angelo Garrido MD Cervical Spine MRI 01/23/17 Signed Impressions: Service Date/Time: Monday, January 23, 2017 17:01 - CONCLUSION: 1. Multilevel cervical spine degenerative changes as above. 2. Mild degrees of spinal stenosis at C3/C4-C6/C7. No cord compression or cord signal abnormality. 3. Age indeterminate left paracentral/foraminal disc protrusion at C6/C7. 4. Multilevel foraminal stenosis, most severe on the left at C6/C7. Please see individual levels above. 5. No fracture or subluxation of the cervical spine. Angelo Garrido MD Brain MRI 01/23/17 0000 Signed Impressions: Service Date/Time: Monday, January 23, 2017 17:01 - CONCLUSION: 1. No acute stroke or other acute intracranial abnormality demonstrated. 2. Moderate severity chronic white matter changes, nonspecific but most likely related to chronic small vessel disease. 3. Few scattered tiny lacunar infarcts of the brainstem. 4. Given the findings are not entirely specific, clinical evaluation for possible multiple sclerosis recommended. Angelo Garrido MD Knee X-Ray 01/22/[id number] Signed Impressions: Service Date/Time: Sunday, January 22, 2017 21:17 - CONCLUSION: 1. Evidence of moderate to large joint effusion. 2. No acute fracture or malalignment. 3. Mild 3 compartment osteoarthritic change. Benjamin Person MD Hip and Pelvis X-Ray [id number]/22/[id number] Signed Impressions: Service Date/Time: Sunday, January 22, 2017 21:10 - CONCLUSION: 1. Mild to moderate degenerative change of both hips with no acute fracture or malalignment. There is flattening and remodeling of the right humeral head. Benjamin Person MD Physical Exam GENERAL: Looks comfortable on the vent. SKIN: Cool and dry. No generalized rash. Edematous in extremities. EYES: [place] conjunctiva. No petechia or hemorrhage. EARS, NOSE AND THROAT: Nose without bleeding or purulent nasal discharge. Dry oral mucosa NECK: Trach site ok. CARDIOVASCULAR: Regular rate and rhythm. Soft heart sounds. No murmurs RESPIRATORY: Coarse BS bilaterally, decreased at bases. ABDOMEN: Soft, not tender, distended, PEG site ok. No guarding rectal tube in place with small amount of liquid stool EXTREMITIES: No clubbing, cyanosis. Edema +++. Dressing on R leg wound with lots of drainage. Generalized anasarca. NEUROLOGICAL: sedated PSYCHIATRIC: unable to assess LINE: Lines with no evidence of infection Assessment & Plan Remarks IMPRESSION Recurrent respiratory failure, ?plugging, PNA - last CXR better New Sepsis (fever and leucocytosis), temps up again x 1, and WBC still elevated Aspiration Pneumonia in health care setting. Mucus plugs with atelectasis. Leucocytosis, persistent, but decreasing ESBL in urine in recent past. 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 PNA, ?plugging/atelctasis - MDR, I to Zerbaxa, has been tolerating T-piece - likely effusion adding to his respiratory problems, on top of his plugging /secretions Large R retroperitoneal bleed, S/P multiple transfusions and S/P coiling of bleeders Anemia, due to bleed, retroperitoneal MSSA sepsis, due to suppurative thrombophlebitis LUE, S/P I and D and excision of portion of cephalic vein - S/P Rx Respiratory failure, has had several intubations - reintubated again 02/28, extubated 03/11 - reintubated again - S/P trach 03/14 Rx 7 days high dose solumedrol for transverse myelitis Wu LE DVT has IVC filter placed 01/25 - ?hypercoagulable state Chronic kidney disease, worsening creatinine - shock and compression of ureter by hematoma Known DM, HTN Diarrhea, C.diff negative RECOMMENDATION Continue Zerbaxa IV (ASP: recently treated for MDR PSAE and now with GNR in sputum and s.o new infection) Continue Diflucan with higher dose as patient has C.glabrata which needs higher urinary levels to be effectively treated. Give Abx until 05/05 (7 day course) Monitor progress Weaning per CCM Dr Acevedo available this weekend if needed Irene Edwards MD May 04, 2017 13:16
[2017-05-04 14:05] LABS: HEMATOCRIT 23.7 % (39.0-51.0); REVIEW FLAG FINAL
[2017-05-04] MEDS: ATORVASTATIN 10 MG TAB PO SCH (20:43)
[2017-05-05] VITALS (18 sets, daily range): BP systolic 89–129; BP diastolic 53–60; PULSE 76–117; RESP 21–33; TEMP 98.1–98.9; O2SAT 88–100
[2017-05-05] MEDS: INSULIN ASPART SUPPLEMENTAL SCALE SQ SCH ×4 (00:45→18:00)
[2017-05-05] MEDS: oxyCODONE HCL ORAL CONC 5 MG/0.25 ML SYRINGE PO SCH ×6 (00:46→20:48)
[2017-05-05] MEDS: ALBUMIN 25% INJ 100 ML IV SCH ×2 (03:52→16:41)
[2017-05-05] MEDS: FUROSEMIDE 20 MG/2 ML VIAL IV PUSH SCH ×2 (05:06→18:00)
[2017-05-05] MEDS: FREE WATER G-TUBE SCH ×5 (05:06→20:00)
[2017-05-05] MEDS: CEFTOLOZANE-TAZOBACTAM INJ 1,500 MG in SODIUM CHLORIDE 0.9% INJ 100 ML IV SCH ×3 (05:06→20:48)
[2017-05-05] MEDS: HYDROCORTISONE 10 MG TAB PO SCH (05:06)
[2017-05-05 07:46] LABS: AUTOMATED NEUTROPHIL # 14.5 TH/MM3 (1.8-7.7); BASOPHIL # 0.1 TH/MM3 (0-0.2); BASOPHIL % 0.5 % (0.0-2.0); EOSINOPHIL # 2.7 TH/MM3 (0-0.4); EOSINOPHIL % 13.2 % (0.0-4.0); LYMPH % 7.3 % (9.0-44.0); LYMPHOCYTE # 1.5 TH/MM3 (1.0-4.8); MEAN CELL VOLUME 85.3 FL (80.0-100.0); MEAN CORPUSCULAR HEMOGLOBIN 26.3 PG (27.0-34.0); MEAN CORPUSCULAR HGB CONC 30.9 % (32.0-36.0); MONO % 7.6 % (0.0-8.0); NEUT % 71.4 % (16.0-70.0); PLATELET COUNT 213 TH/MM3 (150-450); RED CELL DISTRIBUTION WIDTH 17.8 % (11.6-17.2); WHITE BLOOD COUNT 20.3 TH/MM3 (4.0-11.0)
[2017-05-05 07:52] LABS: HEMO FLAGS AUTO DIFF
[2017-05-05] MEDS: LACTOBACILLUS ACIDOPHILUS TAB PO SCH ×3 (08:15→18:00)
[2017-05-05] MEDS: LANSOPRAZOLE SOLUTAB 30 MG TAB NG SCH ×2 (08:15→20:48)
[2017-05-05] MEDS: METOPROLOL TARTRATE 25 MG TAB PO SCH ×2 (08:15→20:48)
[2017-05-05] MEDS: FLUCONAZOLE 200 MG TAB PO SCH (08:16)
[2017-05-05] MEDS: QUEtiapine FUMARATE 25 MG TAB PO SCH (08:16)
[2017-05-05] MEDS: TAMSULOSIN HCL 0.4 MG CAP PO SCH ×2 (08:16→20:48)
[2017-05-05] MEDS: CHLORHEXIDINE 0.12% (ORAL KIT) 15 ML CUP MT SCH ×2 (08:18→20:00)
[2017-05-05] MEDS: CHOLESTYRAMINE 4 GM PACKET G-TUBE SCH ×2 (08:18→20:48)
[2017-05-05] MEDS: COLLAGENASE OINT 30 GM TUBE TOPICAL SCH (08:18)
[2017-05-05] MEDS: SODIUM CHLORIDE 0.9% FLUSH 10 ML FLUSH IV FLUSH SCH ×3 (08:18→20:47)
[2017-05-05 08:23] LABS: BICARBONATE 25.8 MEQ/L (21.0-32.0)
[2017-05-05 10:36] LABS: BANDS 9 % (0-6); BLASTS 1 % (0-0); EOSINOPHILS 17 % (0-4); METAMYELOCYTES 4 % (0-1); MYELOCYTES 7 % (0-0); NEUTROPHIL # MANUAL DIFF 13.6 TH/MM3 (1.8-7.7); PLATELET ESTIMATE SMEAR NORMAL (NORMAL); PLATELET MORPHOLOGY NORMAL (NORMAL); POLYS (SEG NEUTROPHILS) 47 % (16-70); WBC DIFF SAMPLE 100
[2017-05-05 10:38] LABS: SCAN/DIFF FINAL DIFF MANUAL
--- NOTE | 2017-05-05 11:26 | HHI.NPPN ---
Subjective History of Present Illness 61-year-old with history of urinary stone patient again got unstable has recurrent bouts of ICU admission requiring ventilation and respiratory care started having scrotal swelling and acute renal failure again, he had mild hyperkalemia and this was treated I have been reconsulted again Additional Remarks Patient had trach on vent, not in distress, clinically same. Review of Systems General Constitutional: Fatigue Objective Data Data Vital Signs Date Time Temp Pulse Resp B/P (MAP) Pulse Ox O2 Delivery O2 Flow Rate FiO2 05/05/17 10:34 96 35 05/05/17 07:39 97 35 05/05/17 06:00 102 05/05/17 05:07 95 35 05/05/17 04:00 105 21 118/56 (76) 93 05/05/17 04:00 35 05/05/17 04:00 105 05/05/17 02:00 90 05/05/17 01:05 97 35 05/05/17 00:00 98.9 100 22 105/53 (70) 96 05/05/17 00:00 35 05/05/17 00:00 100 05/04/17 22:00 100 05/04/17 20:02 100 35 05/04/17 20:00 35 05/04/17 20:00 99.1 104 24 110/56 (74) 95 05/04/17 20:00 104 05/04/17 18:36 16 05/04/17 18:00 109 05/04/17 16:19 94 35 05/04/17 16:00 105 05/04/17 16:00 98.1 105 27 125/58 (80) 95 05/04/17 16:00 35 05/04/17 14:15 96 05/04/17 14:00 97 05/04/17 12:00 97.9 101 25 92/51 (65) 96 05/04/17 12:00 101 05/04/17 12:00 35 -: 05/05/17 0514 05/05/17 0514 Physical Exam General Appearance: Pale Eyes Eye Exam: Pupils Equal Throat Throat Exam: Oral Mucosa [place] & Moist Neck Neck Exam: Neck Supple Pulmonary Resp Exam: Clear Bilaterally Cardiology CV Exam: Normal Sinus Rhythm Gastrointestinal/Abdomen GI Exam: Non-Tender, Distended Genitourinary Exam: Flank Non-Tender (scrotal edema) Extremeties Extremities Exam: Moderate Edema, Pitting Edema Neurologic Neuro Exam: Awake Assessment/Plan Problem List: (1) Acute renal failure ICD Codes: N17.9 - Acute kidney failure, unspecified Status: Acute Plan: Patient with pneumonia as, sepsis, acute renal failure Had pneumonia, developed sepsis with ARF again creatinine declined slightly post hydration he also had retroperitoneal bleed Pseudomonas in sputum, with colonized airway 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 Patient had been on dialysis earlier in hospitalization. He again has prerenal azotemia and respiratory failure, we will try albumin with Lasix again ON Lasix 20 mg IV every 12 follow kidney functions non oliguric ATN from sepsis K low replace KCL 20 meq x 2 He has multiple infections and pneumonia. Creatinine has been stable. Continue Lasix. (2) CKD (chronic kidney disease) stage 3, GFR 30-59 ml/min ICD Codes: N18.3 - Chronic kidney disease, stage 3 (moderate) Status: Chronic Plan: Ultrasound revealed chronic kidney disease there is no kidney stones (3) Diabetes ICD Codes: E11.9 - Type 2 diabetes mellitus without complications Plan: Continue to monitor (4) Distal end of ulna fracture, closed ICD Codes: S52.609A - Unspecified fracture of lower end of unspecified ulna, initial encounter for closed fracture Status: Acute Plan: Orthopedic is following Problem Qualifiers (1) Acute renal failure: Qualified Codes: N17.9 - Acute kidney failure, unspecified Aicha Leonard MD May 05, 2017 11:26
--- NOTE | 2017-05-05 15:39 | HHI.CCPN ---
Subjective Remarks/Hospital Course Date of admission: 01/22 Date of critical care medicine consult 02/10 due to acute hypoxemic respiratory failure requiring emergent intubation 62-year-old male with a past medical history of hypertension, hyperlipidemia, diabetes mellitus, gout, uric acid kidney stones, kidney disease of unknown stage who originally presented to [facility] emergency department on 01/22 after a fall in which he sustained a right distal ulna fracture. He had been experiencing a gradual primarily lower extremity weakness as well as upper extremity weakness that was progressive. Neurology consult was obtained. MRI revealed no acute stroke. He had multifocal white matter changes. Tiny lacunar infarcts of the brainstem. Lumbar MRI report states L4-L5 disc protrusion with cetnral canal stenosis. Dr. Blackwell evaluated and states no cord compression on MRI C/T spine and recommended nonoperative management. Symptoms were felt to be consistent with transverse myelitis and he underwent Solumedrol 250 mg IV q6 hours 01/27-02/02. He also was found to have occlusive thrombus in the bilateral posterior tibial veins. Heparin was being avoided because he had traumatic lumbar puncture on 01/26 and 02/01. IVC filter was placed 01/25. He was undergoing physical therapy, reportedly making some improvements with plan to eventually discharged home with his son (max assist standing, and bed to chair per PT note). Apparently he had some vomiting the evening of 02/09 and additional vomiting on 02/10. He had a fever 102.8 on 02/09. Last recorded bowel movement was 02/03. Tonight he had acute onset of severe hypoxemia and respiratory distress. [facility] called and he was brought emergently to [facility] where his sats were 64% on 100% nonrebreather with mean arterial pressure 44. He was emergently intubated, CVL and art line placed. He is in septic shock. SUBJ: 02/11: Patient remains intubated sedated, critically ill. FiO2 reduced to 80% after increasing PEEP to 12. In severe septic shock Levophed at 16 mcg/m, vasopressin at 0.04 international units. D/W vascular surgery Dr. Enciso. He performed bedside Left upper extremity incision and debridement and excision of septic cephalic vein. 02/12: Remains intubated sedated profoundly septic, in shock on vasopressin and 7 mcg/min Levophed. FiO2 has improved to 45%, WBC count remains elevated with 20 ,000 white count significant left shift. Slight improvement in creatinine 2.9 urine output 750 ml 24 hours. 2-D echo shows LV ejection fraction 20-25%, no vegetation reported. Blood cultures 4 staph aureus. Wound culture pending 02/13: Remains critically ill but stable to improving. WBC count is down to 16, creatinine improving to 2.36. Off all pressors. Urine output also improving. 1.5L in 24 hours 02/14: Extubated 02/13. Tolerating well. WBC now down to 12.8. Creat improving 2.3 to 2. UO 3.4L. remains off all pressors. Was started on Precedex yesterday night for agitation, currently on 0.5 g per KG per hour. Chest x-ray shows left more than right air space disease 02/20/17 Re consult: 62-year-old male who was originally admitted for lower extremity weakness and found to have what was thought to be possible transverse myelitis. His hospital course his included a healthcare associated pneumonia, septic thrombophlebitis, DVT. He was most recently in the hospital floor where he had significant nausea and vomiting and diarrhea. His C. difficile test was recently negative. However, he has experienced worsening acute on chronic renal failure, hypotension, tachycardia, and severe hypoxemia. He did have a bout of vomiting earlier today, and his hospitalist attending suspects that he may have aspirated. He arrives by rapid response to the ICU with a nonrebreather in place in severe respiratory distress with SPO2 of 85%. I emergently intubate the patient, see separate procedure note for details. At this point the patient was hypotensive and tachycardic. He does have a history of an EF of 20%, however clinically he appears in florid septic shock. I placed central line and arterial line started vasopressors and gentle IV fluid resuscitation with 1 L of LR. Patient today was empirically broadened to vancomycin and Zosyn from his oxacillin which was initially treating MSSA bacteremia. He is recultured. Critical-care medicine is consulted to evaluate and manage his worsening multiorgan system failure and decompensated septic shock 02/21: Patient remains intubated sedated. Becomes anxious tachypnea on sedation lightening. Chest x-ray shows mild left lower lobe infiltrate. WBC count is slightly improved today from 23.2 t0 21. C Diff negative. UO adequate, creat slightly worsening. 1.57 today 02/22: Remains intubated sedated tolerated CPAP yesterday, plan is for EGD/ Colonscopy. WBC count back to normal. UO adequate. Creat stable 02/23: Tolerating CPAP trials following commands. Will do a spontaneous breathing trials. Status post EGD colonoscopy yesterday -Gastritis, esophagitis. Diverticulosis and multiple polyps. Urine output adequate but creatinine increasing to 1.7 with patient requiring multiple straight catheterization. We'll reinsert Sloan. 02/24: Breathing comfortably 24 hours after extubation. Protects airway well. 02/25: Excoriate bottom, will place rectal FMS. Start pureed diet. 02/26: Afebrile. Complaining of nausea and vomiting this afternoon. Increased stool output. Continue potassium replacement today. 02/27: 10 PM overnight, acutely hypotensive. Received 3 units PRBCs. Antibiotic coverage broadened to piperacillin/tazobactam, cortisol and 1 dose of vancomycin. Oxacillin drip currently on hold. Symptomatically, patient continues to vague abdominal pain/nausea vomiting which is unchanged for the past several days. Lipase elevated yesterday. Lactic acid normal. Troponin normal. Urinary retention after removal of Sloan. Straight catheter 1300. Cc 02/28: New diagnosis large retroperitoneal hematoma. Received 10 PRBC, 14 FFP, 2 platelets, 1 cryo-, 6 g calcium chloride, 2 is magnesium sulfate and 4 mg Bumex. CTA abdomen revealed possible arterial bleeds iliac, lumbar. Patient is currently on norepinephrine and epinephrine drips and possible need right nephrostomy tube placement due to large hematoma compressing ureter. Intra-abdominal bladder pressures are currently 13 03/01: Afebrile. Received 25 g albumin and 1 unit PRBCs overnight. Intra- abdominal bladder pressures currently 19. Currently on 3 micrograms per minute of norepinephrine. [id number]-fl-[id number] 1 out of 4 on 4 mics grams per kilogram per minute of cisatracurium. 03/02: Slightly hypothermic overnight. Hemoglobin appears to have stabilized. Troponin bump overnight likely secondary to demand ischemia from hypotension. Hemodynamically stable off all vasopressors. 03/03: Received 1 PRBCs overnight. 3 units currently. Off all vasopressors. Likely rebleeding. Stool is dark. 03/04: Remains unstable. Ventilator dependent. 03/05: afebrile. hgb stable. 03/06: bumex drip started overnight. good uop after bumex initiated. still grossly volume overloaded. Cr downtrending. more awake with transition to propofol. still too volume overloaded to tolerate extubation. hgb stable. 03/07: Afebrile. Tolerating tube feeds at goal with Nepro. Positive BM. On low-dose fentanyl and propofol drips. Potassium currently being replaced. 03/08: Eyes will open on ventilator. Afebrile. Tolerating tube feeding. Failed PSV trial yesterday due to apnea. 03/09: Following commands. Tmax 101. Tolerating tube feeding. One hour PSV trial yesterday. Currently tolerating well so far today 1.5 hours 03/10: Low-grade temperatures. Tolerating PSV trial 10 hours yesterday. Currently at 5/5 at 35%. We'll probably attempt extubation a.m. after hemodialysis. 03/11: Extubated currently in 4 L nasal cannula. Thick secretions thick clear with cough. Currently afebrile. Tolerating diet previously. 03/12: Sleepy this morning but arouses. Following commands. Refusing diet at the present time. On 2 L nasal cannula. 03/13: Patient reintubated last night for worsening respiratory status. Currently sedated on mechanical ventilation. Became hypotensive following intubation and is on Levophed 20 mics per minute. 03/14: Sedated, orally intubated on mech vent at the time of my evaluation this AM, subsequently underwent perc trach placement. Remains on levophed for pressor support. Transfused 1 unit PRBCs today. Persisten 03/15: Trach site clean, dry. CXR with bilateral basilar infiltrates. 03/16: Pulmonary congestion persists. Clinical condition not improving. Prognosis becoming increasingly bleak. 03/17: Glucose intolerance worse. No improvement in neurological function. 03/18: Remains on mechanical ventilation via tracheostomy. Off pressors now. Neurologic status remains poor. 03/19: Drowsy, encephalopathic, arousable. On mechanical ventilation via tracheostomy. Levemir increased for hyperglycemia today. Remains off pressors 03/20: More awake, moves both upper extremities. On mechanical ventilation via tracheostomy. Daily C Pap trials ongoing. 03/21: Awake and alert. On mechanical ventilation via tracheostomy. Opens and closes eyes on command. 03/22: Awake and alert. Tolerated T PIECE for 7 hours yesterday. Dialyzed today. 03/23: Currently on T piece trial. Status post dialysis yesterday on 3 L. Awake and alert. Wants to eat. 03/24: Currently afebrile. Hemodialysis catheter discontinued yesterday from left IJ. Persistent leukocytosis noted. Potassium will be replaced. Furosemide 40 mg twice a day IV to 20 mg IV twice a day 03/25: WBC count unchanged. Patient on T piece with humidified air greater than 48 hours, tolerating it well. Reconsulted 04/12: The patient was transferred emergently from the floor/ [facility]. Patient was initially seen by home sales consultant Dr. Estrada, and the patient was noted to be tachypneic on T piece of 40%. ABGs were performed which showed a PaO2 of 60 on T piece of FiO2 of 40%. Chest x-ray was performed which showed loss of entire left hemidiaphragm operator/assistant foreman consolidation in the left lower lobe. Concern for mucus plugging versus fluid. The patient was transferred emergently to [facility] placed on a ventilator CT of the chest is pending. Upon arrival in the room the patient is alert and oriented, mouthing words, nodding head to yes and no questions O2 sat is 100% but patient is currently on mechanical ventilation. Currently in no respiratory distress. 04/13: Tmax 99.8. The patient's oxygen requirements have decreased currently FiO2 35% with a PaO2 1 blood gas of 85, O2 saturation 100%. No respiratory distress noted. Patient underwent CT of the chest yesterday noted pleural effusions left greater than right, diagnostic/and therapeutic CT thoracentesis plan for this a.m.. 04/14: Patient underwent CT-guided thoracentesis of the right side with approximately 600 cc withdrawn. Today home sales consultant Dr. LABOY in and up size indwelling 6.0 Shiley to a 8.0 Shiley. Minimal bleeding noted around the site. X-ray improving. Patient started on CPAP trials today, as well as tube feeds were initiated. 04/15: Placed on T piece this morning via tracheostomy. Appears to be tolerating it. Laying in bed not in any acute distress. 04/16: Awake and alert. Tolerating T piece. Tolerating PEG feeds. 04/17: Awake and alert. Tolerating T piece. Tolerating tube feeds via PEG 04/18: Awake and alert. Tolerating TPs. Tolerating tube feeds. Passed swallow eval 04/19: Awake and alert. Remains on T piece. Wants to move out of ICU as he indicates to me once again as he has for the past few days. Awaiting CIC bed 04/20: Awake and alert. Remains on T piece. Developed hypotension last night for which she was transiently on Levophed however has been off since early this morning. ID adjusting antibiotics and working up for new sepsis. 04/21: Awake and alert. On T piece. Awaiting CIC bed for the last few days. 04/22: Awake and alert. Remains on T piece. Received 500 cc normal saline this morning for tachycardia. 04/23 No events overnight. Remains on TP's with 35% FIO2. Afebrile. 04/24: Resting comfortably. Got short of breath with Passy-Rafy valve which was taken off. 04/25: Remains on T piece. Awaiting transfer out of ICU. 04/26: Remains on T piece. Still awaiting transfer out of ICU since 04/17. 04/27 Patient became hypotensive, bradycardic and hypoxic, ABG on TP's last night showed acute hypercapnic resp acidosis (PH 7.10, CO2: 80) he was subsequently placed on mechanical ventilator. Patient was given Albumin, 2u PRBC and started on Levophed 3mics. Renal function worse today with Cr: 1.53 from 1.13 04/28 No events overnight off Levophed since yesterday. On no sedation. Afebrile. 04/29 Patient is on ventilator via trach. T;100.4 04/30 Patient remains on ventilator via trach. Afebrile. 05/01 No events overnight. Afebrile. 05/02 No events overnight. On ventilator via trach. T: 100.1 last night. 05/03 Patient remains on ventilator via trach. 05/04 No events overnight. Afebrile. Tolerating tube feeds. 05/05: more hypoxic this morning with increased secretions. fio2 rising. ID on board. leukocytosis persists. Objective Vital Signs Date Time Temp Pulse Resp B/P (MAP) Pulse Ox O2 Delivery O2 Flow Rate FiO2 05/05/17 14:00 93 05/05/17 13:10 97 35 05/05/17 12:00 98.2 21 90/55 (67) 05/02/17 04:00 Mechanical Ventilator Intake and Output 05/05/17 05/05/17 05/05/17 07:59 15:59 23:59 Intake Total 1328 ml 100 ml Output Total 1500 ml Balance -172 ml 100 ml Result Diagram: 05/05/17 0514 05/05/17 0514 Imaging Last Impressions Chest X-Ray 05/03/17 0000 Signed Impressions: Service Date/Time: April 10:19 - CONCLUSION: 1. Poor lung aeration 2. Interstitial vascular prominence 3. Significant left lung opacity characteristic of moderate pleural effusion and underlying basilar air space disease. Lenny Ware MD Thoracentesis 04/13/17 1054 Signed Impressions: Service Date/Time: Thursday, April 13, 2017 15:26 - CONCLUSION: Uncomplicated CT-guided right thoracentesis. Candido Mendoza Jr., MD Chest CT 04/12/17 1558 Signed Impressions: Service Date/Time: March 17:51 - CONCLUSION: 1. Slight increase in size of bilateral effusions and basilar atelectasis, left greater than right compared with February 27. Tracheostomy in good position. Trace Holloway MD Renal Ultrasound 04/02/17 0000 Signed Impressions: Service Date/Time: Sunday, April 02, 2017 16:59 - CONCLUSION: Limited exam with the left kidney being unable to be evaluated in the bladder not distended. There do appear to be multiple shadowing stones at the right kidney without hydronephrosis. Angelo Manzo MD Wrist X-Ray 03/27/17 0000 Signed Impressions: Service Date/Time: Monday, March 27, 2017 13:21 - CONCLUSION: 1. No acute fracture is identified. A portion of the previously documented distal ulna fracture remains visualized. 2. 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 Angelo Allen MD Aortography 02/28/17 0000 Signed Impressions: Service Date/Time: Tuesday, February 28, 2017 08:01 - CONCLUSION: 1. Active hemorrhage from distal right lateral sacral and iliolumbar branches successfully coil and Gelfoam embolized, as above. Juan Bhakta MD Abdomen/Pelvis CT 02/28/17 0000 Signed Impressions: Service Date/Time: Tuesday, February 28, 2017 06:51 - CONCLUSION: 1. The right retroperitoneal hematoma has increased in size, as above. There are 2 serpiginous arterially enhancing structures visualized, one in the right psoas muscle and another extending into the hematoma at the right iliac fossa. These could represent sites of continued active bleeding. 2. Stable moderate size left and small right pleural effusion with associated compressive atelectasis. 3. Stable small volume of free fluid in the abdomen and pelvis. There is also anasarca. The findings concerning the retroperitoneal hematoma were discussed with Dr. Aguiar via telephone at approximately 7: 10 AM on 02/28/2017. Angelo Allen MD Abdomen X-Ray 02/26/17 0000 Signed Impressions: Service Date/Time: Sunday, February 26, 2017 14:52 - CONCLUSION: 1. Nonobstructive bowel gas pattern. Juan Bhakta MD Upper Extremity Ultrasound 02/10/17 0000 Signed Impressions: Service Date/Time: Friday, February 10, 2017 18:46 - CONCLUSION: Occlusive thrombus in the cephalic and basilic veins. Benjamin Person MD Lung Scan- Nuclear Medicine 02/10/17 0000 Signed Impressions: Service Date/Time: Friday, February 10, 2017 22:17 - CONCLUSION: Low probability pulmonary embolism. Candido Patton MD Head CT 02/10/17 0000 Signed Impressions: Service Date/Time: Friday, February 10, 2017 23:51 - CONCLUSION: Negative noncontrast CT brain. Candido Patton MD Lumbar Puncture Fluoroscopy 02/01/17 0000 Signed Impressions: Service Date/Time: January 09:35 - CONCLUSION: Uncomplicated fluoroscopically guided lumbar puncture. CSF was clear. Nabeel Peralta MD Head Magnetic Resonance Angiography 01/27/17 0000 Signed Impressions: Service Date/Time: Friday, January 27, 2017 10:33 - CONCLUSION: No intracranial vascular abnormality is identified. There is no aneurysm visualized. Angelo Allen MD IVC Filter Placement X-Ray 01/25/17 0000 Signed Impressions: Service Date/Time: January 10:29 - CONCLUSION: Uncomplicated inferior vena cava filter placement as above. Yung Fowler MD Thoracic Spine MRI 01/24/17 Signed Impressions: Service Date/Time: Tuesday, January 24, 2017 22:29 - CONCLUSION: 1. Mild degenerative spondylosis most prominently at T11-L1 with slight effacement of the anterior thecal sac and left lateral recess. No significant neural foraminal stenosis. 2. No acute fracture. Juan Bhakta MD Lumbar Spine MRI 01/23/17 Signed Impressions: Service Date/Time: Monday, January 23, 2017 17:01 - CONCLUSION: 1. At L4-5 is a broad-based disc protrusion with severe central canal and lateral recess stenosis and flattening of the exiting right L4 nerve root. 2. L5-S1 there is a disc protrusion and moderate stenosis with flattening of the exiting L5 nerve roots bilaterally. 3. At L3-4 there is a moderate to severe central stenosis and lateral recess stenosis with mild foraminal stenosis. 4. No acute fracture or spondylolisthesis. Trace Holloway MD Lower Extremity Ultrasound 01/23/17 Signed Impressions: Service Date/Time: Monday, January 23, 2017 09:53 - CONCLUSION: Bilateral focal lower extremity DVT involving the posterior tibial veins. Angelo Garrido MD Cervical Spine MRI 01/23/17 Signed Impressions: Service Date/Time: Monday, January 23, 2017 17:01 - CONCLUSION: 1. Multilevel cervical spine degenerative changes as above. 2. Mild degrees of spinal stenosis at C3/C4-C6/C7. No cord compression or cord signal abnormality. 3. Age indeterminate left paracentral/foraminal disc protrusion at C6/C7. 4. Multilevel foraminal stenosis, most severe on the left at C6/C7. Please see individual levels above. 5. No fracture or subluxation of the cervical spine. Angelo Garrido MD Brain MRI 01/23/17 Signed Impressions: Service Date/Time: Monday, January 23, 2017 17:01 - CONCLUSION: 1. No acute stroke or other acute intracranial abnormality demonstrated. 2. Moderate severity chronic white matter changes, nonspecific but most likely related to chronic small vessel disease. 3. Few scattered tiny lacunar infarcts of the brainstem. 4. Given the findings are not entirely specific, clinical evaluation for possible multiple sclerosis recommended. Angelo Garrido MD Knee X-Ray [id number]/22/[id number] Signed Impressions: Service Date/Time: Sunday, January 22, 2017 21:17 - CONCLUSION: 1. Evidence of moderate to large joint effusion. 2. No acute fracture or malalignment. 3. Mild 3 compartment osteoarthritic change. Benjamin Person MD Hip and Pelvis X-Ray [id number] Signed Impressions: Service Date/Time: Sunday, January 22, 2017 21:10 - CONCLUSION: 1. Mild to moderate degenerative change of both hips with no acute fracture or malalignment. There is flattening and remodeling of the right humeral head. Benjamin Person MD Objective Remarks GENERAL: 62-year-old male, resting in bed, on mechanical ventilation via trach HEENT: Normocephalic. Atraumatic. Pupils equal, round, reactive. NECK: Tracheostomy in place, around trach site erythematous, yellowish drainage CHEST: b/l equal air entry CARDIOVASCULAR: Tachycardic S1-S2 regular, no gallop or murmur ABDOMEN distended. No rigidity. Umbilical hernia is reducible. No guarding. PEG tube in place : Positive scrotal edema Sloan in situ MUSCULOSKELETAL: Pulses 2+. 1+ bilateral upper and lower extremity edema. NEUROLOGICAL: Awake and alert, has spontaneous eye opening. Opens and closes eyes on command. Moves 4 limbs weakly to stimulation. Procedures 01/25/2017- Retrievable IVC Filter placement 01/26/17-lumbar puncture with fluoroscopy-by interventional radiology 02/01/17- lumbar puncture fluoroscopy by interventional radiology 02/10/17- Endotracheal Intubation 02/10/17-left IJ central venous line placed 02/10/17-left femoral arterial line placed 02/11/17-Diagnostic and therapeutic bronchoscopy with bronchoalveolar lavage 02/11/17-Left upper extremity incision and debridement with excision of septic cephalic vein 02/13/17- Extubated 02/20/17- endotracheal intubation 02/20/17- Left subclavian central line placement 02/20/17-Right radial A-line placement 02/22/17-EGD/colonoscopy 02/28/17-right radial a line 02/28/17- Endotracheal intubation 02/28/17- right sided introducer catheter placement 02/28/17- Right IJ central line placement 02/28/17-Right chest tube placement 02/28/17- Embolization of inferior and superior sacral branches of right internal iliac artery 03/01/17- Hemodialysis access catheter 03/03/17-Right IJ central line placement 03/11/17-Extubated 03/13/17- Endotracheal intubation 03/14/17-Tracheostomy placement, trach downsized to 6.0 Shiley 03/30/17 03/15/17-PEG tube placement 04/11/17-CT Chest 04/13/17-thoracentesis right 600 cc removed Date of Insertion: Mar 03, 2017 Line: Central Venous Catheter Side: Right Location: Internal, Jugular A/P Problem List: (1) Septic shock ICD Code: A41.9 - Sepsis, unspecified organism; R65.21 - Severe sepsis with septic shock Status: Acute (2) Acute respiratory failure ICD Code: J96.00 - Acute respiratory failure, unspecified whether with hypoxia or hypercapnia Status: Chronic (3) Thrombophlebitis arm ICD Code: I80.8 - Phlebitis and thrombophlebitis of other sites (4) Aspiration pneumonia ICD Code: J69.0 - Pneumonitis due to inhalation of food and vomit Status: Acute (5) Atelectasis of left lung ICD Code: J98.11 - Atelectasis Status: Acute (6) Quadriparesis ICD Code: G82.50 - Quadriplegia, unspecified Status: Acute (7) DVT (deep venous thrombosis) ICD Code: I82.409 - Acute embolism and thrombosis of unspecified deep veins of unspecified lower extremity (8) Altered mental status ICD Code: R41.82 - Altered mental status, unspecified Status: Acute (9) CKD (chronic kidney disease) stage 3, GFR 30-59 ml/min ICD Code: N18.3 - Chronic kidney disease, stage 3 (moderate) Status: Chronic (10) Acute renal failure ICD Code: N17.9 - Acute kidney failure, unspecified Status: Acute (11) Diabetes mellitus ICD Code: E11.9 - Type 2 diabetes mellitus without complications Status: Chronic (12) Distal end of ulna fracture, closed ICD Code: S52.609A - Unspecified fracture of lower end of unspecified ulna, initial encounter for closed fracture Status: Acute (13) Gout ICD Code: M10.9 - Gout, unspecified Status: Chronic Assessment and Plan Assessment: NEURO/PSYCH: Acute metabolic encephalopathy- persistent Quadriparesis secondary to suspected transverse myelitis Recurrent falls On no sedation. Monitor neuro status. Suspected transverse myelitis. Received methylprednisolone 250 mg IV every 6 hours 01/27-02/02, started back on hydrocortisone 02/21/17, initially tapering to 50 mg IV every 8 hours starting received 1 dose at 2100 prior to becoming hypotensive. weaning hydrocortisone taper and stopped 03/09. Resumed hydrocortisone 50mg IV Q6hrly on 03/14 as patient became hypotensive following intubation on 03/13 requiring levophed. LP 01/26 and 02/01. CSF culture negative 01/26, 02/01 Oligoclonal bands negative. CSF/serum IgG index is not elevated. VDRL nonreactive. Cryptococcal antigen negative. Brain MRI 01/23 no acute stroke. Few scattered lacunar infarcts of the brainstem. Moderate chronic white matter changes. MRI cervical/thoracic spine- mild spinal stenosis C3/C4 to C6/C7. No cord compression. RPR negative Neurology has been following, Dr. Crenshaw. Repeat CT brain 02/10 - negative Continue PT/OT wean oxycodone to 5mg po q4h scheduled d/c cortef today. RESP: Acute hypoxemic respiratory failure - persistent. Healthcare associated pneumonia/Aspiration Pneumonia - recurrent. S/P Right-sided chest tube 02/28 Continue with vent support keep sat >92% Bronchodilators, pulm toilet, trach care s/p perc tracheostomy 03/14. Pulmonology following Dr. Estrada 04/13 CT guided thoracentesis scheduled emergently as discussed with Dr. 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 Estrada at bedside CV: Systolic heart failure likely chronic with ejection fraction 20-25% Hyperlipidemia History of hypertension Mild TR Sinus tachycardia Elevated troponin likely type II demand ischemia On Lopressor 25mg Q12- Monitor HR and BP keep MAP>65mmHg Atorvastatin 10 mg by mouth daily for dyslipidemia. 2-D echocardiogram 01/11 revealed EF 20-25%. Mild TR. Pulmonary arterial pressures were normal around 20 GI: Large right retroperitoneal hematoma - resolved. Erosive esophagitis Adenomatous/hyperplastic colon polyps Severe acute protein calorie malnutrition Nausea/vomiting - resolved. Diarrhea Gastritis Diverticulosis Internal and external hemorrhoids Hiatal hernia Elevated lipase On tube feeds-Nepro@ 40ml/hr 02/27 CT chest/abdomen and pelvis - 9.4 x 7.5 renal and 16 x 12 cm right psoas muscle hematoma. Fluid around liver and spleen. Right-sided nephrolithiasis CTA abdomen 02/28 - possible blushing around iliac/lumbar vessels Discussed with IR. s/p attempted embolization CT abdomen and pelvis 02/10 atrophic left kidney. Bilateral inguinal hernias fat- containing. Nonobstructing 12 mm right kidney stone repeat CT abd/pelvis did not show evidence of obstruction. patient clinically has been having diarrhea (c. diff negative 02/19). also with nausea/vomiting of unclear etiology. EGD/Colonoscopy-02/22/17 showed gastritis esophagitis, hiatal hernia, diverticulosis and multiple polyps in descending colon and sigmoid which were snared biopsied. 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 Liao. On Lasix 20mg Q12, IV Albumin RIOS/SPEP negative. 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 Recommended nephrostomy tube if obstruction Nephrology consulted, off hemodialysis. Making urine. ICU electrolyte replacement protocol Last IHD was 03/22 increase Free water to 300ml Q4, monitor sodium level.. ID: Septic shock- resolved. Abscess and Suppurative thrombophlebitis left upper extremity MSSA bacteremia Klebsiella UTI ESBL positive Acute aspiration pneumonia/HCAP 04/27 Sputum cx: Pseudomonas, Urine cx: Ivania Bustillo , BC: 05/24 bottles: Coag negative staph likely contaminant 04/29 BC: NGTD 05/01 Wound cx: Pseudomonas, Group D enterococcus, GNR Previously treated with Bactrim, ertapenem, intermittent vancomycin, nafcillin Blood cultures 2, UA ESBL positive Klebsiella UTI Sputum 03/14 - Pseudomonas came back resistant to imipenem, Stenotrophomonas maltophilia Antibiotics per ID. on Diflucan, Zerbaxa, ID is following. C-diff PCR negative wound service is following. stage IV sacral ulcer, ulcer right ankle/LE HEME: Acute blood loss anemia DVT, bilateral posterior tibial vein, IVC filter Septic thrombophlebitis with occlusive thrombus mid cephalic and basilic vein side Monitor CBC s/p transfusion 2units PRBC ( 04/26) Received 10 PRBC, 14 FFP, 2 platelets, 1 cryo-02/28 Received 3 units PRBCs Ultrasound 01/23/17 - Bilateral lower extremity with occlusive posterior tibial vein DVTs. Heparin was initially started for DVT but was placed on hold due to LP with suspected traumatic tap. Currently holding full anticoagulation with enoxaparin 100 mg IV twice a day due to anemia as of 02/26 IVC filter was placed 01/25/17. Ultrasound LUE 02/10 occlusive thrombus mid cephalic vein, basilic vein.s. Transfuse 3 units PRBCs 02/27 Transfuse 2 units PRBCs 03/01. Transfused 1 unit PRBCs on 03/14 ENDO: Diabetes mellitus Hypoglycemia History of prior adrenal insufficiency with shock Gout Accu-Cheks to maintain euglycemia Novulin R every 4 hours. Low Regimen MSK: Right distal ulna fracture. Recommended nonoperative management. PROPH: Lansoprazole 30 mg twice a day twice a day for stress ulcer prophylaxis. Has IVC filter. Therapeutic enoxaparin was placed on hold for retroperitoneal hematoma ACCESS: Right subclavian CVP placed 04/27 Problem Qualifiers (1) Aspiration pneumonia: (2) DVT (deep venous thrombosis): Qualified Codes: I82.443 - Acute embolism and thrombosis of tibial vein, bilateral (3) Acute renal failure: Qualified Codes: N17.9 - Acute kidney failure, unspecified (4) Diabetes mellitus: (5) Gout: Anthony Rivas MD May 05, 2017 15:39
[2017-05-05] MEDS: RESP: ALBUTEROL 2.5 MG/IPRATROPIUM 0.5 MG NEB (PRN) NEB (15:57)
[2017-05-05] MEDS: ATORVASTATIN 10 MG TAB PO SCH (20:48)
[2017-05-06] VITALS (24 sets, daily range): BP systolic 69–135; BP diastolic 42–63; PULSE 66–104; RESP 16–22; TEMP 97.6–100.7; O2SAT 94–100
[2017-05-06] MEDS: INSULIN ASPART SUPPLEMENTAL SCALE SQ SCH ×4 (00:04→18:34)
[2017-05-06] MEDS: oxyCODONE HCL ORAL CONC 5 MG/0.25 ML SYRINGE PO SCH ×6 (02:00→20:29)
[2017-05-06] MEDS: FREE WATER G-TUBE SCH ×6 (04:00→20:00)
[2017-05-06] MEDS: ALBUMIN 25% INJ 100 ML IV SCH ×2 (04:51→18:33)
[2017-05-06 05:01] LABS: HEMATOCRIT 21.5 % (39.0-51.0); MEAN CELL VOLUME 86.2 FL (80.0-100.0); MEAN CORPUSCULAR HEMOGLOBIN 27.2 PG (27.0-34.0); MEAN CORPUSCULAR HGB CONC 31.5 % (32.0-36.0); PLATELET COUNT 177 TH/MM3 (150-450); RED CELL DISTRIBUTION WIDTH 17.9 % (11.6-17.2); WHITE BLOOD COUNT 26.7 TH/MM3 (4.0-11.0)
[2017-05-06 05:08] LABS: REVIEW FLAG FINAL
[2017-05-06 05:35] LABS: BICARBONATE 24.6 MEQ/L (21.0-32.0)
[2017-05-06 05:42] LABS: POTASSIUM 2.7 MEQ/L (3.5-5.1)
[2017-05-06] MEDS: FUROSEMIDE 20 MG/2 ML VIAL IV PUSH SCH (05:58)
[2017-05-06] MEDS ORDERED: POTASSIUM CHLOR 40 MEQ PREMIX 100 ML IV ONE (07:00)
[2017-05-06] MEDS: LANSOPRAZOLE SOLUTAB 30 MG TAB NG SCH ×2 (07:58→20:29)
[2017-05-06] MEDS: LACTOBACILLUS ACIDOPHILUS TAB PO SCH ×3 (07:58→18:33)
[2017-05-06] MEDS: CHOLESTYRAMINE 4 GM PACKET G-TUBE SCH ×2 (07:58→20:29)
[2017-05-06] MEDS: CHLORHEXIDINE 0.12% (ORAL KIT) 15 ML CUP MT SCH ×2 (08:00→20:28)
[2017-05-06] MEDS: SODIUM CHLORIDE 0.9% FLUSH 10 ML FLUSH IV FLUSH SCH ×3 (09:00→20:29)
[2017-05-06] MEDS: COLLAGENASE OINT 30 GM TUBE TOPICAL SCH (09:00)
[2017-05-06] MEDS: TAMSULOSIN HCL 0.4 MG CAP PO SCH ×2 (09:00→20:29)
[2017-05-06] MEDS: QUEtiapine FUMARATE 25 MG TAB PO SCH (09:00)
--- NOTE | 2017-05-06 09:55 | HHI.NPPN ---
Subjective History of Present Illness 61-year-old with history of urinary stone patient again got unstable has recurrent bouts of ICU admission requiring ventilation and respiratory care started having scrotal swelling and acute renal failure again, he had mild hyperkalemia and this was treated I have been reconsulted again Additional Remarks Patient had trach on vent, not in distress, remain unresponsive. Review of Systems General Constitutional: Fatigue Objective Data Data Vital Signs Date Time Temp Pulse Resp B/P (MAP) Pulse Ox O2 Delivery O2 Flow Rate FiO2 05/06/17 07:39 94 50 05/06/17 06:00 70 05/06/17 05:00 100 50 05/06/17 04:00 70 05/06/17 04:00 98.2 70 16 78/46 (57) 100 05/06/17 04:00 50 05/06/17 02:00 72 05/06/17 00:43 100 50 05/06/17 00:00 98.2 74 21 90/54 (66) 100 05/06/17 00:00 74 05/06/17 00:00 60 05/05/17 22:03 60 05/05/17 22:00 76 05/05/17 21:14 100 80 05/05/17 20:00 98.1 81 23 89/54 (66) 100 05/05/17 20:00 81 05/05/17 20:00 80 05/05/17 18:00 91 05/05/17 16:00 100 05/05/17 16:00 92 60 05/05/17 16:00 80 05/05/17 16:00 98.1 100 33 109/54 (72) 88 05/05/17 14:00 93 05/05/17 13:10 97 35 05/05/17 12:00 35 05/05/17 12:00 91 05/05/17 12:00 98.2 91 21 90/55 (67) 97 05/05/17 10:34 96 35 05/05/17 10:00 106 -: 05/06/17 0450 05/06/17 0450 Physical Exam General Appearance: Pale Eyes Eye Exam: Pupils Equal Throat Throat Exam: Oral Mucosa [place] & Moist Neck Neck Exam: Neck Supple Pulmonary Resp Exam: Clear Bilaterally Cardiology CV Exam: Normal Sinus Rhythm Gastrointestinal/Abdomen GI Exam: Non-Tender, Distended Genitourinary Exam: Flank Non-Tender (scrotal edema) Extremeties Extremities Exam: Moderate Edema, Pitting Edema Neurologic Neuro Exam: Awake Assessment/Plan Problem List: (1) Acute renal failure ICD Codes: N17.9 - Acute kidney failure, unspecified Status: Acute Plan: Patient with pneumonia as, sepsis, acute renal failure Had pneumonia, developed sepsis with ARF again creatinine declined slightly post hydration he also had retroperitoneal bleed Pseudomonas in sputum, with colonized airway 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 Patient had been on dialysis earlier in hospitalization. He again has prerenal azotemia and respiratory failure, we will try albumin with Lasix again ON Lasix 20 mg IV every 12 follow kidney functions non oliguric ATN from sepsis K low replaced. He has multiple infections and pneumonia. Patient has low BP, give one dose of IV Albumin. Creatinine increased, possible HD if not improving. Palliative care following. (2) CKD (chronic kidney disease) stage 3, GFR 30-59 ml/min ICD Codes: N18.3 - Chronic kidney disease, stage 3 (moderate) Status: Chronic Plan: Ultrasound revealed chronic kidney disease there is no kidney stones (3) Diabetes ICD Codes: E11.9 - Type 2 diabetes mellitus without complications Plan: Continue to monitor (4) Distal end of ulna fracture, closed ICD Codes: S52.609A - Unspecified fracture of lower end of unspecified ulna, initial encounter for closed fracture Status: Acute Plan: Orthopedic is following Problem Qualifiers (1) Acute renal failure: Qualified Codes: N17.9 - Acute kidney failure, unspecified Aicha Leonard MD May 06, 2017 09:55
[2017-05-06] MEDS ORDERED: ALBUMIN 25% INJ 100 ML IV ONE (10:00)
[2017-05-06] MEDS ORDERED: ATROPINE SULFATE 1 MG/10 ML SYRINGE ONE (10:40)
[2017-05-06] MEDS: NOREPINEPHRINE 4 MG/D5W 250 ML IV PRN ×2 (10:40→20:30)
[2017-05-06 10:46] LABS: BLOOD GAS BASE EXCESS -4.6 mmol/L (-2-2); BLOOD GAS CARBOXYHEMOGLOBIN 1.2 % (0-4); BLOOD GAS HCO3 21 mmol/L (22-26); BLOOD GAS METHEMOGLOBIN 1.1 % (0-2); BLOOD GAS O2 HGB SATURATION 97 % (90-100); BLOOD GAS OXYGEN CONTENT 10.5 Vol % (12.0-20.0); BLOOD GAS PCO2 42 mmHg (38-42); BLOOD GAS PO2 184 mmHg (61-120); BLOOD GAS TOTAL HGB 7.4 G/DL (12.0-16.0); TEMP CORR TO 98.6
[2017-05-06 10:47] LABS: CRITICAL VALUE NO; DRAW SITE LT RADIAL; FIO2 50 %; NUMBER OF ARTERIAL PUNCTURES 1; OXYGEN DEVICE VENTILATOR; STAT NO; ULNAR PULSE PRESENT
--- NOTE | 2017-05-06 11:09 | HHI.CCPN ---
Subjective Remarks/Hospital Course Date of admission: 01/22 Date of critical care medicine consult 02/10 due to acute hypoxemic respiratory failure requiring emergent intubation 62-year-old male with a past medical history of hypertension, hyperlipidemia, diabetes mellitus, gout, uric acid kidney stones, kidney disease of unknown stage who originally presented to [facility] emergency department on 01/22 after a fall in which he sustained a right distal ulna fracture. He had been experiencing a gradual primarily lower extremity weakness as well as upper extremity weakness that was progressive. Neurology consult was obtained. MRI revealed no acute stroke. He had multifocal white matter changes. Tiny lacunar infarcts of the brainstem. Lumbar MRI report states L4-L5 disc protrusion with cetnral canal stenosis. Dr. Blackwell evaluated and states no cord compression on MRI C/T spine and recommended nonoperative management. Symptoms were felt to be consistent with transverse myelitis and he underwent Solumedrol 250 mg IV q6 hours 01/27-02/02. He also was found to have occlusive thrombus in the bilateral posterior tibial veins. Heparin was being avoided because he had traumatic lumbar puncture on 01/26 and 02/01. IVC filter was placed 01/25. He was undergoing physical therapy, reportedly making some improvements with plan to eventually discharged home with his son (max assist standing, and bed to chair per PT note). Apparently he had some vomiting the evening of 02/09 and additional vomiting on 02/10. He had a fever 102.8 on 02/09. Last recorded bowel movement was 02/03. Tonight he had acute onset of severe hypoxemia and respiratory distress. [facility] called and he was brought emergently to [facility] where his sats were 64% on 100% nonrebreather with mean arterial pressure 44. He was emergently intubated, CVL and art line placed. He is in septic shock. SUBJ: 02/11: Patient remains intubated sedated, critically ill. FiO2 reduced to 80% after increasing PEEP to 12. In severe septic shock Levophed at 16 mcg/m, vasopressin at 0.04 international units. D/W vascular surgery Dr. Enciso. He performed bedside Left upper extremity incision and debridement and excision of septic cephalic vein. 02/12: Remains intubated sedated profoundly septic, in shock on vasopressin and 7 mcg/min Levophed. FiO2 has improved to 45%, WBC count remains elevated with 20 ,000 white count significant left shift. Slight improvement in creatinine 2.9 urine output 750 ml 24 hours. 2-D echo shows LV ejection fraction 20-25%, no vegetation reported. Blood cultures 4 staph aureus. Wound culture pending 02/13: Remains critically ill but stable to improving. WBC count is down to 16, creatinine improving to 2.36. Off all pressors. Urine output also improving. 1.5L in 24 hours 02/14: Extubated 02/13. Tolerating well. WBC now down to 12.8. Creat improving 2.3 to 2. UO 3.4L. remains off all pressors. Was started on Precedex yesterday night for agitation, currently on 0.5 g per KG per hour. Chest x-ray shows left more than right air space disease 02/20/17 Re consult: 62-year-old male who was originally admitted for lower extremity weakness and found to have what was thought to be possible transverse myelitis. His hospital course his included a healthcare associated pneumonia, septic thrombophlebitis, DVT. He was most recently in the hospital floor where he had significant nausea and vomiting and diarrhea. His C. difficile test was recently negative. However, he has experienced worsening acute on chronic renal failure, hypotension, tachycardia, and severe hypoxemia. He did have a bout of vomiting earlier today, and his hospitalist attending suspects that he may have aspirated. He arrives by rapid response to the ICU with a nonrebreather in place in severe respiratory distress with SPO2 of 85%. I emergently intubate the patient, see separate procedure note for details. At this point the patient was hypotensive and tachycardic. He does have a history of an EF of 20%, however clinically he appears in florid septic shock. I placed central line and arterial line started vasopressors and gentle IV fluid resuscitation with 1 L of LR. Patient today was empirically broadened to vancomycin and Zosyn from his oxacillin which was initially treating MSSA bacteremia. He is recultured. Critical-care medicine is consulted to evaluate and manage his worsening multiorgan system failure and decompensated septic shock 02/21: Patient remains intubated sedated. Becomes anxious tachypnea on sedation lightening. Chest x-ray shows mild left lower lobe infiltrate. WBC count is slightly improved today from 23.2 t0 21. C Diff negative. UO adequate, creat slightly worsening. 1.57 today 02/22: Remains intubated sedated tolerated CPAP yesterday, plan is for EGD/ Colonscopy. WBC count back to normal. UO adequate. Creat stable 02/23: Tolerating CPAP trials following commands. Will do a spontaneous breathing trials. Status post EGD colonoscopy yesterday -Gastritis, esophagitis. Diverticulosis and multiple polyps. Urine output adequate but creatinine increasing to 1.7 with patient requiring multiple straight catheterization. We'll reinsert Sloan. 02/24: Breathing comfortably 24 hours after extubation. Protects airway well. 02/25: Excoriate bottom, will place rectal FMS. Start pureed diet. 02/26: Afebrile. Complaining of nausea and vomiting this afternoon. Increased stool output. Continue potassium replacement today. 02/27: 10 PM overnight, acutely hypotensive. Received 3 units PRBCs. Antibiotic coverage broadened to piperacillin/tazobactam, cortisol and 1 dose of vancomycin. Oxacillin drip currently on hold. Symptomatically, patient continues to vague abdominal pain/nausea vomiting which is unchanged for the past several days. Lipase elevated yesterday. Lactic acid normal. Troponin normal. Urinary retention after removal of Sloan. Straight catheter 1300. Cc 02/28: New diagnosis large retroperitoneal hematoma. Received 10 PRBC, 14 FFP, 2 platelets, 1 cryo-, 6 g calcium chloride, 2 is magnesium sulfate and 4 mg Bumex. CTA abdomen revealed possible arterial bleeds iliac, lumbar. Patient is currently on norepinephrine and epinephrine drips and possible need right nephrostomy tube placement due to large hematoma compressing ureter. Intra-abdominal bladder pressures are currently 13 03/01: Afebrile. Received 25 g albumin and 1 unit PRBCs overnight. Intra- abdominal bladder pressures currently 19. Currently on 3 micrograms per minute of norepinephrine. Habee-iz-nokp 1 out of 4 on 4 mics grams per kilogram per minute of cisatracurium. 03/02: Slightly hypothermic overnight. Hemoglobin appears to have stabilized. Troponin bump overnight likely secondary to demand ischemia from hypotension. Hemodynamically stable off all vasopressors. 03/03: Received 1 PRBCs overnight. 3 units currently. Off all vasopressors. Likely rebleeding. Stool is dark. 03/04: Remains unstable. Ventilator dependent. 03/05: afebrile. hgb stable. 03/06: bumex drip started overnight. good uop after bumex initiated. still grossly volume overloaded. Cr downtrending. more awake with transition to propofol. still too volume overloaded to tolerate extubation. hgb stable. 03/07: Afebrile. Tolerating tube feeds at goal with Nepro. Positive BM. On low-dose fentanyl and propofol drips. Potassium currently being replaced. 03/08: Eyes will open on ventilator. Afebrile. Tolerating tube feeding. Failed PSV trial yesterday due to apnea. 03/09: Following commands. Tmax 101. Tolerating tube feeding. One hour PSV trial yesterday. Currently tolerating well so far today 1.5 hours 03/10: Low-grade temperatures. Tolerating PSV trial 10 hours yesterday. Currently at 5/5 at 35%. We'll probably attempt extubation a.m. after hemodialysis. 03/11: Extubated currently in 4 L nasal cannula. Thick secretions thick clear with cough. Currently afebrile. Tolerating diet previously. 03/12: Sleepy this morning but arouses. Following commands. Refusing diet at the present time. On 2 L nasal cannula. 03/13: Patient reintubated last night for worsening respiratory status. Currently sedated on mechanical ventilation. Became hypotensive following intubation and is on Levophed 20 mics per minute. 03/14: Sedated, orally intubated on mech vent at the time of my evaluation this AM, subsequently underwent perc trach placement. Remains on levophed for pressor support. Transfused 1 unit PRBCs today. Persisten 03/15: Trach site clean, dry. CXR with bilateral basilar infiltrates. 03/16: Pulmonary congestion persists. Clinical condition not improving. Prognosis becoming increasingly bleak. 03/17: Glucose intolerance worse. No improvement in neurological function. 03/18: Remains on mechanical ventilation via tracheostomy. Off pressors now. Neurologic status remains poor. 03/19: Drowsy, encephalopathic, arousable. On mechanical ventilation via tracheostomy. Levemir increased for hyperglycemia today. Remains off pressors 03/20: More awake, moves both upper extremities. On mechanical ventilation via tracheostomy. Daily C Pap trials ongoing. 03/21: Awake and alert. On mechanical ventilation via tracheostomy. Opens and closes eyes on command. 03/22: Awake and alert. Tolerated T PIECE for 7 hours yesterday. Dialyzed today. 03/23: Currently on T piece trial. Status post dialysis yesterday on 3 L. Awake and alert. Wants to eat. 03/24: Currently afebrile. Hemodialysis catheter discontinued yesterday from left IJ. Persistent leukocytosis noted. Potassium will be replaced. Furosemide 40 mg twice a day IV to 20 mg IV twice a day 03/25: WBC count unchanged. Patient on T piece with humidified air greater than 48 hours, tolerating it well. Reconsulted 04/12: The patient was transferred emergently from the floor/ [facility]. Patient was initially seen by flight attendant/inflight supervisor Dr. Estrada, and the patient was noted to be tachypneic on T piece of 40%. ABGs were performed which showed a PaO2 of 60 on T piece of FiO2 of 40%. Chest x-ray was performed which showed loss of entire left hemidiaphragm anesthetic assistant consolidation in the left lower lobe. Concern for mucus plugging versus fluid. The patient was transferred emergently [place] [facility] [place] on a ventilator CT of the chest is pending. Upon arrival in the room the patient is alert and oriented, mouthing words, nodding head to yes and no questions O2 sat is 100% but patient is currently on mechanical ventilation. Currently in no respiratory distress. 04/13: Tmax 99.8. The patient's oxygen requirements have decreased currently FiO2 35% with a PaO2 1 blood gas of 85, O2 saturation 100%. No respiratory distress noted. Patient underwent CT of the chest yesterday noted pleural effusions left greater than right, diagnostic/and therapeutic CT thoracentesis plan for this a.m.. 04/14: Patient underwent CT-guided thoracentesis of the right side with approximately 600 cc withdrawn. Today flight attendant/inflight supervisor Dr. LABOY in and up size indwelling 6.0 Shiley to a 8.0 Shiley. Minimal bleeding noted around the site. X-ray improving. Patient started on CPAP trials today, as well as tube feeds were initiated. 04/15: Placed on T piece this morning via tracheostomy. Appears to be tolerating it. Laying in bed not in any acute distress. 04/16: Awake and alert. Tolerating T piece. Tolerating PEG feeds. 04/17: Awake and alert. Tolerating T piece. Tolerating tube feeds via PEG 04/18: Awake and alert. Tolerating TPs. Tolerating tube feeds. Passed swallow eval 04/19: Awake and alert. Remains on T piece. Wants to move out of ICU as he indicates to me once again as he has for the past few days. Awaiting CIC bed 04/20: Awake and alert. Remains on T piece. Developed hypotension last night for which she was transiently on Levophed however has been off since early this morning. ID adjusting antibiotics and working up for new sepsis. 04/21: Awake and alert. On T piece. Awaiting CIC bed for the last few days. 04/22: Awake and alert. Remains on T piece. Received 500 cc normal saline this morning for tachycardia. 04/23 No events overnight. Remains on TP's with 35% FIO2. Afebrile. 04/24: Resting comfortably. Got short of breath with Passy-Rafy valve which was taken off. 04/25: Remains on T piece. Awaiting transfer out of ICU. 04/26: Remains on T piece. Still awaiting transfer out of ICU since 04/17. 04/27 Patient became hypotensive, bradycardic and hypoxic, ABG on TP's last night showed acute hypercapnic resp acidosis (PH 7.10, CO2: 80) he was subsequently placed on mechanical ventilator. Patient was given Albumin, 2u PRBC and started on Levophed 3mics. Renal function worse today with Cr: 1.53 from 1.13 04/28 No events overnight off Levophed since yesterday. On no sedation. Afebrile. 04/29 Patient is on ventilator via trach. T;100.4 04/30 Patient remains on ventilator via trach. Afebrile. 05/01 No events overnight. Afebrile. 05/02 No events overnight. On ventilator via trach. T: 100.1 last night. 05/03 Patient remains on ventilator via trach. 05/04 No events overnight. Afebrile. Tolerating tube feeds. 05/05: more hypoxic this morning with increased secretions. fio2 rising. ID on board. leukocytosis persists. 05/06: continues to clinically decline. hypotensive and anemic. no evidence of GI bleeding, but acute drop in hgb. no uop overnight. restarted norepinephrine this morning. 2 units prbc ordered. recultured. had discussion with his son: with recurrent bleeding and worsening septic shock, unlikely to survive this hospital stay. son continues to press for aggressive measures. Objective Vital Signs Date Time Temp Pulse Resp B/P (MAP) Pulse Ox O2 Delivery O2 Flow Rate FiO2 05/06/17 10:35 100 50 05/06/17 10:10 66 16 69/45 05/06/17 04:00 98.2 Intake and Output 05/06/17 05/06/17 05/07/17 08:00 16:00 00:00 Intake Total 1308 ml Output Total 225 ml Balance 1083 ml Result Diagram: 05/06/17 0450 05/06/17 0450 Other Results Laboratory Tests Test 05/06/17 10:41 Blood Gas Puncture Site LT RADIAL Blood Gas Patient Temperature 98.6 Blood Gas HCO3 21 mmol/L (22-26) Blood Gas Base Excess -4.6 mmol/L (-2-2) Blood Gas Oxygen Saturation 97 % (90-100) Arterial Blood pH 7.31 (7.380-7.420) Arterial Blood Partial Pressure CO2 42 mmHg (38-42) Arterial Blood Partial Pressure O2 184 mmHg (61-120) Arterial Blood Oxygen Content 10.5 Vol % (12.0-20.0) Arterial Blood Carboxyhemoglobin 1.2 % (0-4) Arterial Blood Methemoglobin 1.1 % (0-2) Blood Gas Hemoglobin 7.4 G/DL (12.0-16.0) Oxygen Delivery Device VENTILATOR Blood Gas Ventilator Setting Blood Gas Inspired Oxygen 50 % Imaging Last Impressions Chest X-Ray 05/03/17 0000 Signed Impressions: Service Date/Time: April 10:19 - CONCLUSION: 1. Poor lung aeration 2. Interstitial vascular prominence 3. Significant left lung opacity characteristic of moderate pleural effusion and underlying basilar air space disease. Lenny Ware MD Thoracentesis 04/13/17 1054 Signed Impressions: Service Date/Time: Thursday, April 13, 2017 15:26 - CONCLUSION: Uncomplicated CT-guided right thoracentesis. Candido Mendoza Jr., MD Chest CT 04/12/17 [id number] Signed Impressions: Service Date/Time: March 17:51 - CONCLUSION: 1. Slight increase in size of bilateral effusions and basilar atelectasis, left greater than right compared with February 27. Tracheostomy in good position. Trace Holloway MD Renal Ultrasound 04/02/17 0000 Signed Impressions: Service Date/Time: Sunday, April 02, 2017 16:59 - CONCLUSION: Limited exam with the left kidney being unable to be evaluated in the bladder not distended. There do appear to be multiple shadowing stones at the right kidney without hydronephrosis. Angelo Manzo MD Wrist X-Ray 03/27/17 0000 Signed Impressions: Service Date/Time: Monday, March 27, 2017 13:21 - CONCLUSION: 1. No acute fracture is identified. A portion of the previously documented distal ulna fracture remains visualized. 2. 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 Angelo Allen MD Aortography 02/28/17 0000 Signed Impressions: Service Date/Time: Tuesday, February 28, 2017 08:01 - CONCLUSION: 1. Active hemorrhage from distal right lateral sacral and iliolumbar branches successfully coil and Gelfoam embolized, as above. Juan Bhakta MD Abdomen/Pelvis CT 02/28/17 0000 Signed Impressions: Service Date/Time: Tuesday, February 28, 2017 06:51 - CONCLUSION: 1. The right retroperitoneal hematoma has increased in size, as above. There are 2 serpiginous arterially enhancing structures visualized, one in the right psoas muscle and another extending into the hematoma at the right iliac fossa. These could represent sites of continued active bleeding. 2. Stable moderate size left and small right pleural effusion with associated compressive atelectasis. 3. Stable small volume of free fluid in the abdomen and pelvis. There is also anasarca. The findings concerning the retroperitoneal hematoma were discussed with Dr. Aguiar via telephone at approximately 7: 10 AM on 02/28/2017. Angelo Allen MD Abdomen X-Ray 02/26/17 0000 Signed Impressions: Service Date/Time: Sunday, February 26, 2017 14:52 - CONCLUSION: 1. Nonobstructive bowel gas pattern. Juan Bhakta MD Upper Extremity Ultrasound 02/10/17 0000 Signed Impressions: Service Date/Time: Friday, February 10, 2017 18:46 - CONCLUSION: Occlusive thrombus in the cephalic and basilic veins. Benjamin Person MD Lung Scan-[facility] Nuclear Medicine 02/10/17 Signed Impressions: Service Date/Time: Friday, February 10, 2017 22:17 - CONCLUSION: Low probability pulmonary embolism. Candido Patton MD Head CT 02/10/17 Signed Impressions: Service Date/Time: Friday, February 10, 2017 23:51 - CONCLUSION: Negative noncontrast CT brain. Candido Patton MD Lumbar Puncture Fluoroscopy 02/01/17 Signed Impressions: Service Date/Time: January 09:35 - CONCLUSION: Uncomplicated fluoroscopically guided lumbar puncture. CSF was clear. Nabeel Peralta MD Head Magnetic Resonance Angiography 01/27/17 Signed Impressions: Service Date/Time: Friday, January 27, 2017 10:33 - CONCLUSION: No intracranial vascular abnormality is identified. There is no aneurysm visualized. Angelo Allen MD IVC Filter Placement X-Ray 01/25/17 Signed Impressions: Service Date/Time: January 10:29 - CONCLUSION: Uncomplicated inferior vena cava filter placement as above. Yung Fowler MD Thoracic Spine MRI 01/24/17 Signed Impressions: Service Date/Time: Tuesday, January 24, 2017 22:29 - CONCLUSION: 1. Mild degenerative spondylosis most prominently at T11-L1 with slight effacement of the anterior thecal sac and left lateral recess. No significant neural foraminal stenosis. 2. No acute fracture. Juan Bhakta MD Lumbar Spine MRI 01/23/17 Signed Impressions: Service Date/Time: Monday, January 23, 2017 17:01 - CONCLUSION: 1. At L4-5 is a broad-based disc protrusion with severe central canal and lateral recess stenosis and flattening of the exiting right L4 nerve root. 2. L5-S1 there is a disc protrusion and moderate stenosis with flattening of the exiting L5 nerve roots bilaterally. 3. At L3-4 there is a moderate to severe central stenosis and lateral recess stenosis with mild foraminal stenosis. 4. No acute fracture or spondylolisthesis. Trace Holloway MD Lower Extremity Ultrasound 01/23/17 Signed Impressions: Service Date/Time: Monday, January 23, 2017 09:53 - CONCLUSION: Bilateral focal lower extremity DVT involving the posterior tibial veins. Angelo Garrido MD Cervical Spine MRI 01/23/17 0000 Signed Impressions: Service Date/Time: Monday, January 23, 2017 17:01 - CONCLUSION: 1. Multilevel cervical spine degenerative changes as above. 2. Mild degrees of spinal stenosis at C3/C4-C6/C7. No cord compression or cord signal abnormality. 3. Age indeterminate left paracentral/foraminal disc protrusion at C6/C7. 4. Multilevel foraminal stenosis, most severe on the left at C6/C7. Please see individual levels above. 5. No fracture or subluxation of the cervical spine. Angelo Garrido MD Brain MRI 01/23/17 0000 Signed Impressions: Service Date/Time: Monday, January 23, 2017 17:01 - CONCLUSION: 1. No acute stroke or other acute intracranial abnormality demonstrated. 2. Moderate severity chronic white matter changes, nonspecific but most likely related to chronic small vessel disease. 3. Few scattered tiny lacunar infarcts of the brainstem. 4. Given the findings are not entirely specific, clinical evaluation for possible multiple sclerosis recommended. Angelo Garrido MD Knee X-Ray [id number] Signed Impressions: Service Date/Time: Sunday, January 22, 2017 21:17 - CONCLUSION: 1. Evidence of moderate to large joint effusion. 2. No acute fracture or malalignment. 3. Mild 3 compartment osteoarthritic change. Benjamin Person MD Hip and Pelvis X-Ray [id number] Signed Impressions: Service Date/Time: Sunday, January 22, 2017 21:10 - CONCLUSION: 1. Mild to moderate degenerative change of both hips with no acute fracture or malalignment. There is flattening and remodeling of the right humeral head. Benjamin Person MD Objective Remarks GENERAL: 62-year-old male, resting in bed, on mechanical ventilation via trach HEENT: Normocephalic. Atraumatic. Pupils equal, round, reactive. NECK: Tracheostomy in place, around trach site erythematous, yellowish drainage CHEST: b/l equal air entry CARDIOVASCULAR: normal rate, regular rhythm. ABDOMEN distended. No rigidity. Umbilical hernia is reducible. No guarding. PEG tube in place : Positive scrotal edema Sloan in situ MUSCULOSKELETAL: Pulses 2+. 1+ bilateral upper and lower extremity edema. NEUROLOGICAL: RASS -3. obtunded this morning. weakly withdraws to pain x 4. Procedures 01/25/2017- Retrievable IVC Filter placement 01/26/17-lumbar puncture with fluoroscopy-by interventional radiology 02/01/17- lumbar puncture fluoroscopy by interventional radiology 02/10/17- Endotracheal Intubation 02/10/17-left IJ central venous line placed 02/10/17-left femoral arterial line placed 02/11/17-Diagnostic and therapeutic bronchoscopy with bronchoalveolar lavage 02/11/17-Left upper extremity incision and debridement with excision of septic cephalic vein 02/13/17- Extubated 02/20/17- endotracheal intubation 02/20/17- Left subclavian central line placement 02/20/17-Right radial A-line placement 02/22/17-EGD/colonoscopy 02/28/17-right radial a line 02/28/17- Endotracheal intubation 02/28/17- right sided introducer catheter placement 02/28/17- Right IJ central line placement 02/28/17-Right chest tube placement 02/28/17- Embolization of inferior and superior sacral branches of right internal iliac artery 03/01/17- Hemodialysis access catheter 03/03/17-Right IJ central line placement 03/11/17-Extubated 03/13/17- Endotracheal intubation 03/14/17-Tracheostomy placement, trach downsized to 6.0 Anni 03/30/17 03/15/17-PEG tube placement 04/11/17-CT Chest 04/13/17-thoracentesis right 600 cc removed Date of Insertion: Mar 03, 2017 Line: Central Venous Catheter Side: Right Location: Internal, Jugular A/P Problem List: (1) Septic shock ICD Code: A41.9 - Sepsis, unspecified organism; R65.21 - Severe sepsis with septic shock Status: Acute (2) Acute respiratory failure ICD Code: J96.00 - Acute respiratory failure, unspecified whether with hypoxia or hypercapnia Status: Chronic (3) Thrombophlebitis arm ICD Code: I80.8 - Phlebitis and thrombophlebitis of other sites (4) Aspiration pneumonia ICD Code: J69.0 - Pneumonitis due to inhalation of food and vomit Status: Acute (5) Atelectasis of left lung ICD Code: J98.11 - Atelectasis Status: Acute (6) Quadriparesis ICD Code: G82.50 - Quadriplegia, unspecified Status: Acute (7) DVT (deep venous thrombosis) ICD Code: I82.409 - Acute embolism and thrombosis of unspecified deep veins of unspecified lower extremity (8) Altered mental status ICD Code: R41.82 - Altered mental status, unspecified Status: Acute (9) CKD (chronic kidney disease) stage 3, GFR 30-59 ml/min ICD Code: N18.3 - Chronic kidney disease, stage 3 (moderate) Status: Chronic (10) Acute renal failure ICD Code: N17.9 - Acute kidney failure, unspecified Status: Acute (11) Diabetes mellitus ICD Code: E11.9 - Type 2 diabetes mellitus without complications Status: Chronic (12) Distal end of ulna fracture, closed ICD Code: S52.609A - Unspecified fracture of lower end of unspecified ulna, initial encounter for closed fracture Status: Acute (13) Gout ICD Code: M10.9 - Gout, unspecified Status: Chronic Assessment and Plan Assessment: 62yM with chronic multi-organ dysfunction now with recurrent septic shock and what appears to be additional ongoing active bleeding. will continue to transfuse, appreciate ID involvement, will follow their recommendations for abx regimen. trend h&h. goals remain aggressive. very critically ill this morning. NEURO/PSYCH: Acute metabolic encephalopathy- persistent, worsening this morning. Quadriparesis secondary to suspected transverse myelitis Recurrent falls On no sedation. Monitor neuro status. Suspected transverse myelitis. Received methylprednisolone 250 mg IV every 6 hours 01/27-02/02, started back on hydrocortisone 02/21/17, initially tapering to 50 mg IV every 8 hours starting received 1 dose at 2100 prior to becoming hypotensive. weaning hydrocortisone taper and stopped 03/09. Resumed hydrocortisone 50mg IV Q6hrly on 03/14 as patient became hypotensive following intubation on 03/13 requiring levophed. LP 01/26 and 02/01. CSF culture negative 01/26, 02/01 Oligoclonal bands negative. CSF/serum IgG index is not elevated. VDRL nonreactive. Cryptococcal antigen negative. Brain MRI 01/23 no acute stroke. Few scattered lacunar infarcts of the brainstem. Moderate chronic white matter changes. MRI cervical/thoracic spine- mild spinal stenosis C3/C4 to C6/C7. No cord compression. RPR negative Neurology has been following, Dr. Crenshaw. Repeat CT brain 02/10 - negative Continue PT/OT oxycodone to 5mg po q4h scheduled restart hydrocortisone given shock. RESP: Acute hypoxemic respiratory failure - persistent. Healthcare associated pneumonia/Aspiration Pneumonia - recurrent. S/P Right-sided chest tube 02/28 Continue with vent support keep sat >92% Bronchodilators, pulm toilet, trach care s/p perc tracheostomy 03/14. Pulmonology following Dr. Estrada 04/13 CT guided thoracentesis scheduled emergently as discussed with Dr. Estrada - 600cc removed (right) 04/14-tracheostomy up sized to 8.0 Shiley by flight attendant/inflight supervisor Dr. Estrada at bedside CV: Systolic heart failure likely chronic with ejection fraction 20-25% Hyperlipidemia History of hypertension Mild TR Sinus tachycardia Elevated troponin likely type II demand ischemia Septic Shock Hemorrhagic shock hold lopressor given shock [On Lopressor 25mg Q12] restart levophed for goal map > 65 mmHg. Atorvastatin 10 mg by mouth daily for dyslipidemia. 2-D echocardiogram 01/11 revealed EF 20-25%. Mild TR. Pulmonary arterial pressures were normal around 20 2 units prbc. 500 mL 5% albumin. GI: Large right retroperitoneal hematoma - resolved. Erosive esophagitis Adenomatous/hyperplastic colon polyps Severe acute protein calorie malnutrition Nausea/vomiting - resolved. Diarrhea Gastritis Diverticulosis Internal and external hemorrhoids Hiatal hernia Elevated lipase On tube feeds-Nepro@ 40ml/hr 02/27 CT chest/abdomen and pelvis - 9.4 x 7.5 renal and 16 x 12 cm right psoas muscle hematoma. Fluid around liver and spleen. Right-sided nephrolithiasis CTA abdomen 02/28 - possible blushing around iliac/lumbar vessels Discussed with IR. s/p attempted embolization CT abdomen and pelvis 02/10 atrophic left kidney. Bilateral inguinal hernias fat- containing. Nonobstructing 12 mm right kidney stone repeat CT abd/pelvis did not show evidence of obstruction. patient clinically has been having diarrhea (c. diff negative 02/19). also with nausea/vomiting of unclear etiology. EGD/Colonoscopy-02/22/17 showed gastritis esophagitis, hiatal hernia, diverticulosis and multiple polyps in descending colon and sigmoid which were snared biopsied. 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 Liao. On Lasix 20mg Q12, IV Albumin RIOS/SPEP negative. 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 Recommended nephrostomy tube if obstruction Nephrology consulted, off hemodialysis. Making urine. ICU electrolyte replacement protocol Last IHD was 03/22 Free water 300ml Q4, monitor sodium level.. ID: Septic shock- recurrent Abscess and Suppurative thrombophlebitis left upper extremity MSSA bacteremia Klebsiella UTI ESBL positive Acute aspiration pneumonia/HCAP 04/27 Sputum cx: Pseudomonas, Urine cx: Ivania Bustillo , BC: 05/24 bottles: Coag negative staph likely contaminant 04/29 BC: NGTD 05/01 Wound cx: Pseudomonas, Group D enterococcus, GNR Previously treated with Bactrim, ertapenem, intermittent vancomycin, nafcillin Blood cultures 2, UA ESBL positive Klebsiella UTI Sputum 03/14 - Pseudomonas came back resistant to imipenem, Stenotrophomonas maltophilia Antibiotics per ID. on Diflucan, Zerbaxa, ID is following. C-diff PCR negative wound service is following. stage IV sacral ulcer, ulcer right ankle/LE reculture. ID on board. leukocytosis is worse. HEME: Acute blood loss anemia- worsening. DVT, bilateral posterior tibial vein, IVC filter Septic thrombophlebitis with occlusive thrombus mid cephalic and basilic vein side Monitor CBC s/p transfusion 2units PRBC ( 04/26) Received 10 PRBC, 14 FFP, 2 platelets, 1 cryo-02/28 Received 3 units PRBCs Ultrasound 01/23/17 - Bilateral lower extremity with occlusive posterior tibial vein DVTs. Heparin was initially started for DVT but was placed on hold due to LP with suspected traumatic tap. Currently holding full anticoagulation with enoxaparin 100 mg IV twice a day due to anemia as of 02/26 IVC filter was placed 01/25/17. Ultrasound LUE 02/10 occlusive thrombus mid cephalic vein, basilic vein.s. Transfuse 3 units PRBCs 02/27 Transfuse 2 units PRBCs 03/01. Transfused 1 unit PRBCs on 03/14 2 units prbc today. trend h&h ENDO: Diabetes mellitus Hypoglycemia History of prior adrenal insufficiency with shock Gout Accu-Cheks to maintain euglycemia Novulin R every 4 hours. Low Regimen MSK: Right distal ulna fracture. Recommended nonoperative management. PROPH: Lansoprazole 30 mg twice a day twice a day for stress ulcer prophylaxis. Has IVC filter. Therapeutic enoxaparin was placed on hold for retroperitoneal hematoma ACCESS: Right subclavian CVP placed 04/27. keep today, now back on vasopressors. Dispo: remain in ICU. critically ill and decompensating. Critical care time: 40 minutes, exclusive of separately billable procedures. Problem Qualifiers (1) Aspiration pneumonia: (2) DVT (deep venous thrombosis): Qualified Codes: I82.443 - Acute embolism and thrombosis of tibial vein, bilateral (3) Acute renal failure: Qualified Codes: N17.9 - Acute kidney failure, unspecified (4) Diabetes mellitus: (5) Gout: Anthony Rivas MD May 06, 2017 11:09
[2017-05-06] MEDS ORDERED: SODIUM CHLOR 0.9% 250 ML INJ 250 ML IV ONE (11:15)
[2017-05-06] MEDS ORDERED: ALBUMIN 5% INJ 500 ML IV ONE (12:00)
[2017-05-06] MEDS: HYDROCORTISONE SOD SUCCINATE 100 MG VIAL IV PUSH SCH ×2 (13:01→18:33)
[2017-05-06 14:20] LABS: BACTERIA, URINE OCC /hpf; BLOOD, URINE MOD (NEG); GLUCOSE,URINE NEG (NEG); KETONE, URINE TRACE mg/dL (NEG); MUCUS URINE FEW /lpf (OCC); NITRITE,URINE NEG (NEG); PH, URINE 5.5 (5.0-8.5); SQUAMOUS EPITHELIAL CELL URINE 5 /hpf (0-5); URINE COLOR YELLOW (YELLW/STRAW)
[2017-05-06 14:21] LABS: COMMENT (UR) CATH-CULTURE IND; CULTURE IF INDICATED CATH CULTURE IND
[2017-05-06] MEDS: ATORVASTATIN 10 MG TAB PO SCH (20:29)
[2017-05-07] VITALS (19 sets, daily range): BP systolic 106–145; BP diastolic 61–74; PULSE 68–114; RESP 13–25; TEMP 96.2–99.6; O2SAT 92–100
[2017-05-07] MEDS: HYDROCORTISONE SOD SUCCINATE 100 MG VIAL IV PUSH SCH ×5 (00:24→22:45)
[2017-05-07] MEDS: oxyCODONE HCL ORAL CONC 5 MG/0.25 ML SYRINGE PO SCH ×6 (00:25→21:00)
[2017-05-07] MEDS: ALBUMIN 25% INJ 100 ML IV SCH ×2 (03:46→18:05)
[2017-05-07] MEDS: FREE WATER G-TUBE SCH ×7 (03:46→22:45)
[2017-05-07 04:40] LABS: HEMATOCRIT 28.1 % (39.0-51.0); MEAN CELL VOLUME 85.8 FL (80.0-100.0); MEAN CORPUSCULAR HEMOGLOBIN 27.7 PG (27.0-34.0); MEAN CORPUSCULAR HGB CONC 32.3 % (32.0-36.0); PLATELET COUNT 265 TH/MM3 (150-450); RED BLOOD COUNT 3.28 MIL/MM3 (4.50-5.90); RED CELL DISTRIBUTION WIDTH 16.9 % (11.6-17.2); WHITE BLOOD COUNT 32.1 TH/MM3 (4.0-11.0)
[2017-05-07 04:44] LABS: REVIEW FLAG FINAL
[2017-05-07 05:04] LABS: BICARBONATE 21.5 MEQ/L (21.0-32.0); POTASSIUM 3.5 MEQ/L (3.5-5.1)
[2017-05-07] MEDS: INSULIN ASPART SUPPLEMENTAL SCALE SQ SCH ×5 (05:41→22:45)
[2017-05-07] MEDS: CHLORHEXIDINE 0.12% (ORAL KIT) 15 ML CUP MT SCH ×2 (09:26→21:01)
[2017-05-07] MEDS: LANSOPRAZOLE SOLUTAB 30 MG TAB NG SCH ×2 (09:26→21:00)
[2017-05-07] MEDS: TAMSULOSIN HCL 0.4 MG CAP PO SCH ×2 (09:26→20:53)
[2017-05-07] MEDS: QUEtiapine FUMARATE 25 MG TAB PO SCH (09:27)
[2017-05-07] MEDS: COLLAGENASE OINT 30 GM TUBE TOPICAL SCH (09:27)
[2017-05-07] MEDS: LACTOBACILLUS ACIDOPHILUS TAB PO SCH ×3 (09:27→18:06)
[2017-05-07] MEDS: SODIUM CHLORIDE 0.9% FLUSH 10 ML FLUSH IV FLUSH SCH ×3 (09:27→21:00)
[2017-05-07] MEDS: CHOLESTYRAMINE 4 GM PACKET G-TUBE SCH ×2 (09:27→21:00)
--- NOTE | 2017-05-07 13:50 | HHI.IDPN ---
Subjective Subjective Remarks Patient is a 62-year-old male, admitted to the hospital for evaluation of pain in his right wrist. He gave a history of falling about a week ago and apparently had immediate pain in the right wrist. He did not seek any medical attention initially because reportedly he was very busy. He eventually presented, and he was found to have a distal ulnar fracture on plain films. He also had some redness and swelling. Orthopedics saw the patient, and was being treated conservatively with the splint. During this hospitalization also he started complaining of generalized weakness but more so in his lower extremity than his upper extremity. He had swelling in both lower extremity which revealed evidence of DVT in the posterior tibial veins. Neurology had seen the patient and he underwent lumbar puncture which apparently was traumatic. Patient was therefore not given anticoagulation because of the traumatic LP, and he underwent placement of an IVC filter on January 25. Patient had another lumbar puncture on February 01. He was felt to have transverse myelitis, and he was given high-dose IV Solu-Medrol from January 27 to February 02. There was apparently some improvement in his weakness. The imaging studies done for his weakness showed some spinal stenosis, and neurosurgery was consult that and recommended that there was no surgical intervention to be done. Patient has been stabilizing, but last night apparently deteriorated, and he ended up getting intubated, and had significant hypotension requiring pressors. There was also an ultrasound done of his left upper extremity which showed DVT, and there was evidence of superior 2 thrombophlebitis. Vascular surgery was consult to it and he had IND on his left upper extremity. Patient has had some fevers since yesterday. 2 blood cultures were done yesterday and they're now reported as growing gram-positive cocci in [place] in clusters. He is currently sedated and intubated. He is on Levophed and vasopressin. A central line was placed as well as a femoral a line. He apparently had an IV in his left upper extremity and that was removed yesterday. Patient also has history of chronic kidney disease, and nephrology evaluated the patient. He was just being monitored for his renal insufficiency. Reconsulted 04/12 for low grade fever, leucocytosis, worsening CXR concern for new pneumonia. Notes reviewed Temps low grade this weekend Hypotensive this weekend, on levophed, off now Remains on the vent, on CPAP WBC rising Creatinine rising Had drop in Hgb Antibiotics Current Medications Medications (Trade) Dose Ordered Sig/Rosalia Route Start Time Stop Time Status Last Admin (NS Flush) 2 ml BID IV FLUSH 01/23/17 09:00 05/07/17 09:27 (Zofran Inj) 4 mg Q6H PRN IVP 01/23/17 00:30 02/26/17 17:23 (Dulcolax Supp) 10 mg DAILY PRN RECTAL 01/23/17 00:30 (Lipitor) 10 mg HS PO 01/24/17 21:00 Future hold 05/06/17 20:29 (Glucagon Inj) 1 mg UNSCH PRN OTHER 02/11/17 05:45 02/18/17 18:53 (Flomax) 0.4 mg Q12HR PO 02/17/17 15:00 Future hold 05/07/17 09:26 (Lactinex) 1 tab TID PO 02/19/17 13:00 05/07/17 12:02 (D50w (Vial) Inj) 25 ml UNSCH PRN IV PUSH 02/20/17 12:45 03/27/17 13:20 (Peridex 0.12% Liq) 15 ml BID@08,20 MT 02/28/17 08:00 05/07/17 09:26 (NS Flush) UNSCH PRN IV FLUSH 03/01/17 13:00 (Heparin Inj) UNSCH PRN IV FLUSH 03/01/17 13:00 (NS Flush) DAILY IV FLUSH 03/04/17 09:00 05/07/17 09:27 (Prevacid Odt) 30 mg BID NG 03/07/17 21:00 05/07/17 09:26 (Tylenol 650 Mg/ 20 ml Liq) 650 mg Q6H PRN PO 03/09/17 10:15 04/30/17 12:01 (Tenormin) 25 mg Q12HR PO 03/12/17 10:00 Future Hold 04/18/17 10:09 (Epogen Inj) 10,000 units UNSCH PRN IV PUSH 03/17/17 11:30 03/22/17 10:52 (Nitroglycerin 2% Oint) 2 inch Q6H PRN TOPICAL 03/23/17 14:00 03/29/17 01:20 (Norvasc) 10 mg DAILY PO 03/28/17 09:00 Future Hold 04/19/17 08:16 (Roxicodone Intensol Liq) 5 mg Q4H PO 04/01/17 18:00 05/07/17 13:36 (NovoLOG INJ) 5 units TIDAC SQ 04/03/17 17:00 Future Hold 04/10/17 08:00 (Xanax) 0.125 mg Q6H PRN PO 04/03/17 22:30 04/25/17 14:27 (Pill Splitter) 1 ea UNSCH PRN OTHER 04/03/17 22:45 (Levsin Liq) 0.125 mg Q4H PRN G-TUBE 04/06/17 15:00 04/12/17 10:09 (Questran 4 Gm Pkt) 4 gm Q12HR G-TUBE 04/08/17 21:00 05/07/17 09:27 (SEROquel) 25 mg DAILY PO 04/09/17 09:00 05/07/17 09:27 (Santyl Oint) 1 applic DAILY TOPICAL 04/10/17 09:00 05/07/17 09:27 (Duoneb Neb) 1 ampule Q2HR NEB PRN NEB 04/12/17 17:00 05/05/17 15:57 (Lopressor Inj) 2.5 mg Q6H PRN IV PUSH 04/23/17 01:15 Future Hold 04/23/17 09:36 (NovoLOG SUPPLEMENTAL SCALE) 1 Q6H SQ 04/27/17 18:00 05/07/17 11:53 Albumin Human 100 ml @ 60 mls/hr Q12H IV 04/30/17 17:00 05/07/17 03:46 (Lasix Inj) 20 mg Q12H IV PUSH 04/30/17 18:00 Future Hold 05/06/17 05:58 (Lopressor) 25 mg Q12HR PO 05/02/17 10:45 Future Hold 05/05/17 08:15 (Free Water) 300 ml Q4HR G-TUBE 05/05/17 16:00 05/07/17 11:53 (SoluCORTEF INJ) 50 mg Q6H IV PUSH 05/06/17 11:00 05/07/17 10:07 Norepinephrine Bitartrate 250 ml @ 7.5 mls/hr TITRATE PRN IV 05/06/17 16:00 05/06/17 20:30 Lines Central line - 04/27 Past Medical History Reviewed Allergies: Coded Allergies: levofloxacin (Verified Allergy, Severe, 01/22/17) Objective . Vital Signs Date Time Temp Pulse Resp B/P (MAP) Pulse Ox O2 Delivery O2 Flow Rate FiO2 05/07/17 12:00 97.6 83 13 134/74 (94) 99 05/07/17 12:00 50 05/07/17 12:00 83 05/07/17 11:20 96 45 05/07/17 11:05 17 05/07/17 10:00 86 05/07/17 08:00 91 05/07/17 08:00 50 05/07/17 08:00 98.7 91 17 126/61 (82) 96 05/07/17 07:55 99 45 05/07/17 07:25 135/64 05/07/17 06:08 141/64 05/07/17 06:00 114 05/07/17 04:40 98 50 05/07/17 04:00 99.6 105 25 136/63 (87) 98 05/07/17 04:00 45 05/07/17 04:00 105 05/07/17 03:46 104 142/63 05/07/17 02:00 104 05/07/17 01:07 100 50 05/07/17 00:00 50 05/07/17 00:00 105 05/07/17 00:00 99.5 105 21 145/66 (92) 99 05/06/17 22:36 100 50 05/06/17 22:00 104 05/06/17 20:30 129/57 05/06/17 20:00 50 05/06/17 20:00 104 05/06/17 20:00 100.7 104 20 135/63 (87) 100 05/06/17 19:40 100 50 05/06/17 18:00 102 05/06/17 16:27 99 50 05/06/17 16:00 100.4 99 22 128/60 (82) 99 05/06/17 16:00 50 05/06/17 16:00 99 05/06/17 15:00 98.0 05/06/17 14:00 89 . Laboratory Tests Test 05/06/17 04:50 05/07/17 03:41 White Blood Count 26.7 TH/MM3 32.1 TH/MM3 Red Blood Count 2.50 MIL/MM3 3.28 MIL/MM3 Hemoglobin 6.8 GM/DL 9.1 GM/DL Hematocrit 21.5 % 28.1 % Mean Corpuscular Volume 86.2 FL 85.8 FL Mean Corpuscular Hemoglobin 27.2 PG 27.7 PG Mean Corpuscular Hemoglobin Concent 31.5 % 32.3 % Red Cell Distribution Width 17.9 % 16.9 % Platelet Count 177 TH/MM3 265 TH/MM3 Mean Platelet Volume 8.3 FL 8.4 FL Laboratory Tests Test 05/06/17 04:50 05/07/17 03:41 Blood Urea Nitrogen 69 MG/DL 71 MG/DL Creatinine 2.36 MG/DL 2.58 MG/DL Random Glucose 178 MG/DL 238 MG/DL Calcium Level 10.2 MG/DL 10.2 MG/DL Sodium Level 143 MEQ/L 138 MEQ/L Potassium Level 2.7 MEQ/L 3.5 MEQ/L Chloride Level 108 MEQ/L 104 MEQ/L Carbon Dioxide Level 24.6 MEQ/L 21.5 MEQ/L Anion Gap 10 MEQ/L 13 MEQ/L Estimat Glomerular Filtration Rate 28 ML/MIN 25 ML/MIN Microbiology Date/Time Source Procedure Growth Status 05/06/17 13:26 Blood Peripheral Aerobic Blood Culture - Preliminary NO GROWTH IN 1 DAY Resulted 05/06/17 13:26 Blood Peripheral Anaerobic Blood Culture - Preliminary NO GROWTH IN 1 DAY Resulted 05/06/17 13:16 Blood Peripheral Aerobic Blood Culture - Preliminary NO GROWTH IN 1 DAY Resulted 05/06/17 13:16 Blood Peripheral Anaerobic Blood Culture - Preliminary NO GROWTH IN 1 DAY Resulted 05/06/17 11:35 Sputum Endotracheal Gram Stain - Final Resulted 05/06/17 11:35 Sputum Endotracheal Sputum Culture Pending Resulted 05/06/17 13:00 Urine Catheterized Urine Urine Culture Pending Received Imaging Chest X-Ray 05/03/17 0000 Signed Impressions: Service Date/Time: April 10:19 - CONCLUSION: 1. Poor lung aeration 2. Interstitial vascular prominence 3. Significant left lung opacity characteristic of moderate pleural effusion and underlying basilar air space disease. Lenny Ware MD Thoracentesis 04/13/17 1054 Signed Impressions: Service Date/Time: Thursday, April 13, 2017 15:26 - CONCLUSION: Uncomplicated CT-guided right thoracentesis. Candido Mendoza Jr., MD Chest CT 04/12/17 1558 Signed Impressions: Service Date/Time: March 17:51 - CONCLUSION: 1. Slight increase in size of bilateral effusions and basilar atelectasis, left greater than right compared with February 27. Tracheostomy in good position. Trace Holloway MD Renal Ultrasound 04/02/17 0000 Signed Impressions: Service Date/Time: Sunday, April 02, 2017 16:59 - CONCLUSION: Limited exam with the left kidney being unable to be evaluated in the bladder not distended. There do appear to be multiple shadowing stones at the right kidney without hydronephrosis. Angelo Manzo MD Wrist X-Ray 03/27/17 0000 Signed Impressions: Service Date/Time: Monday, March 27, 2017 13:21 - CONCLUSION: 1. No acute fracture is identified. A portion of the previously documented distal ulna fracture remains visualized. 2. 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 Angelo Allen MD Aortography 02/28/17 0000 Signed Impressions: Service Date/Time: Tuesday, February 28, 2017 08:01 - CONCLUSION: 1. Active hemorrhage from distal right lateral sacral and iliolumbar branches successfully coil and Gelfoam embolized, as above. Juan Bhakta MD Abdomen/Pelvis CT 02/28/17 0000 Signed Impressions: Service Date/Time: Tuesday, February 28, 2017 06:51 - CONCLUSION: 1. The right retroperitoneal hematoma has increased in size, as above. There are 2 serpiginous arterially enhancing structures visualized, one in the right psoas muscle and another extending into the hematoma at the right iliac fossa. These could represent sites of continued active bleeding. 2. Stable moderate size left and small right pleural effusion with associated compressive atelectasis. 3. Stable small volume of free fluid in the abdomen and pelvis. There is also anasarca. The findings concerning the retroperitoneal hematoma were discussed with Dr. Aguiar via telephone at approximately 7: 10 AM on 02/28/2017. Angelo Allen MD Abdomen X-Ray 02/26/17 Signed Impressions: Service Date/Time: Sunday, February 26, 2017 14:52 - CONCLUSION: 1. Nonobstructive bowel gas pattern. Juan Bhakta MD Upper Extremity Ultrasound 02/10/17 Signed Impressions: Service Date/Time: Friday, February 10, 2017 18:46 - CONCLUSION: Occlusive thrombus in the cephalic and basilic veins. Benjamin Person MD Lung Scan-V Nuclear Medicine 02/10/17 Signed Impressions: Service Date/Time: Friday, February 10, 2017 22:17 - CONCLUSION: Low probability pulmonary embolism. Candido Patton MD Head CT 02/10/17 Signed Impressions: Service Date/Time: Friday, February 10, 2017 23:51 - CONCLUSION: Negative noncontrast CT brain. Candido Patton MD Lumbar Puncture Fluoroscopy 02/01/17 Signed Impressions: Service Date/Time: January 09:35 - CONCLUSION: Uncomplicated fluoroscopically guided lumbar puncture. CSF was clear. Nabeel Peralta MD Head Magnetic Resonance Angiography 01/27/17 Signed Impressions: Service Date/Time: Friday, January 27, 2017 10:33 - CONCLUSION: No intracranial vascular abnormality is identified. There is no aneurysm visualized. Angelo Allen MD IVC Filter Placement X-Ray 01/25/17 Signed Impressions: Service Date/Time: January 10:29 - CONCLUSION: Uncomplicated inferior vena cava filter placement as above. Yung Fowler MD Thoracic Spine MRI 01/24/17 Signed Impressions: Service Date/Time: Tuesday, January 24, 2017 22:29 - CONCLUSION: 1. Mild degenerative spondylosis most prominently at T11-L1 with slight effacement of the anterior thecal sac and left lateral recess. No significant neural foraminal stenosis. 2. No acute fracture. Juan Bhakta MD Lumbar Spine MRI 01/23/17 Signed Impressions: Service Date/Time: Monday, January 23, 2017 17:01 - CONCLUSION: 1. At L4-5 is a broad-based disc protrusion with severe central canal and lateral recess stenosis and flattening of the exiting right L4 nerve root. 2. L5-S1 there is a disc protrusion and moderate stenosis with flattening of the exiting L5 nerve roots bilaterally. 3. At L3-4 there is a moderate to severe central stenosis and lateral recess stenosis with mild foraminal stenosis. 4. No acute fracture or spondylolisthesis. Trace Holloway MD Lower Extremity Ultrasound 01/23/17 Signed Impressions: Service Date/Time: Monday, January 23, 2017 09:53 - CONCLUSION: Bilateral focal lower extremity DVT involving the posterior tibial veins. Angelo Garrido MD Cervical Spine MRI 01/23/17 Signed Impressions: Service Date/Time: Monday, January 23, 2017 17:01 - CONCLUSION: 1. Multilevel cervical spine degenerative changes as above. 2. Mild degrees of spinal stenosis at C3/C4-C6/C7. No cord compression or cord signal abnormality. 3. Age indeterminate left paracentral/foraminal disc protrusion at C6/C7. 4. Multilevel foraminal stenosis, most severe on the left at C6/C7. Please see individual levels above. 5. No fracture or subluxation of the cervical spine. Angelo Garrido MD Brain MRI 01/23/17 Signed Impressions: Service Date/Time: Monday, January 23, 2017 17:01 - CONCLUSION: 1. No acute stroke or other acute intracranial abnormality demonstrated. 2. Moderate severity chronic white matter changes, nonspecific but most likely related to chronic small vessel disease. 3. Few scattered tiny lacunar infarcts of the brainstem. 4. Given the findings are not entirely specific, clinical evaluation for possible multiple sclerosis recommended. Angelo Garrido MD Knee X-Ray [id number]/22/[id number] Signed Impressions: Service Date/Time: Sunday, January 22, 2017 21:17 - CONCLUSION: 1. Evidence of moderate to large joint effusion. 2. No acute fracture or malalignment. 3. Mild 3 compartment osteoarthritic change. Benjamin Person MD Hip and Pelvis X-Ray [id number]/22/[id number] Signed Impressions: Service Date/Time: Sunday, January 22, 2017 21:10 - CONCLUSION: 1. Mild to moderate degenerative change of both hips with no acute fracture or malalignment. There is flattening and remodeling of the right humeral head. Benjamin Person MD Physical Exam GENERAL: Looks comfortable on the vent. SKIN: Cool and dry. No generalized rash. Edematous in extremities. EYES: Duson conjunctiva. No petechia or hemorrhage. EARS, NOSE AND THROAT: Nose without bleeding or purulent nasal discharge. Dry oral mucosa NECK: Trach site ok. CARDIOVASCULAR: Regular rate and rhythm. Soft heart sounds. No murmurs RESPIRATORY: Coarse BS bilaterally, decreased at bases. ABDOMEN: Soft, not tender, distended, PEG site ok. No guarding rectal tube in place with small amount of liquid stool EXTREMITIES: No clubbing, cyanosis. Edema +++. Dressing on R leg wound with lots of drainage. Generalized anasarca. NEUROLOGICAL: sedated PSYCHIATRIC: unable to assess LINE: Lines with no evidence of infection Assessment & Plan Remarks IMPRESSION Recurrent respiratory failure, ?plugging, PNA - last CXR better New Sepsis (fever and leucocytosis), temps up again x 1, and WBC still elevated Aspiration Pneumonia in health care setting. Mucus plugs with atelectasis. Leucocytosis, worsening ESBL in urine in recent past. 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 PNA, ?plugging/atelctasis - MDR, I to Zerbaxa, has been tolerating T-piece - likely effusion adding to his respiratory problems, on top of his plugging /secretions Large R retroperitoneal bleed, S/P multiple transfusions and S/P coiling of bleeders Anemia, due to bleed, retroperitoneal MSSA sepsis, due to suppurative thrombophlebitis LUE, S/P I and D and excision of portion of cephalic vein - S/P Rx Respiratory failure, has had several intubations - reintubated again 02/28, extubated 03/11 - reintubated again - S/P trach 03/14 Rx 7 days high dose solumedrol for transverse myelitis Wu LE DVT has IVC filter placed 01/25 - ?hypercoagulable state Chronic kidney disease, worsening creatinine - shock and compression of ureter by hematoma Known DM, HTN Diarrhea, C.diff negative RECOMMENDATION Follow new C/S Monitor progress Follow temps Consider reCT A/P - he had prior retroperitoneal hematoma and embolization - ?rebleed Weaning per [facility] Irene Edwards MD May 07, 2017 13:50
[2017-05-07] MEDS ORDERED: ALTEPLASE RECOMBINANT 2 MG VIAL IV FLUSH ONE (14:45)
--- NOTE | 2017-05-07 16:31 | HHI.CCPN ---
Subjective Remarks/Hospital Course Date of admission: 01/22 Date of critical care medicine consult 02/10 due to acute hypoxemic respiratory failure requiring emergent intubation 62-year-old male with a past medical history of hypertension, hyperlipidemia, diabetes mellitus, gout, uric acid kidney stones, kidney disease of unknown stage who originally presented to [facility] emergency department on 01/22 after a fall in which he sustained a right distal ulna fracture. He had been experiencing a gradual primarily lower extremity weakness as well as upper extremity weakness that was progressive. Neurology consult was obtained. MRI revealed no acute stroke. He had multifocal white matter changes. Tiny lacunar infarcts of the brainstem. Lumbar MRI report states L4-L5 disc protrusion with cetnral canal stenosis. Dr. Blackwell evaluated and states no cord compression on MRI C/T spine and recommended nonoperative management. Symptoms were felt to be consistent with transverse myelitis and he underwent Solumedrol 250 mg IV q6 hours 01/27-02/02. He also was found to have occlusive thrombus in the bilateral posterior tibial veins. Heparin was being avoided because he had traumatic lumbar puncture on 01/26 and 02/01. IVC filter was placed 01/25. He was undergoing physical therapy, reportedly making some improvements with plan to eventually discharged home with his son (max assist standing, and bed to chair per PT note). Apparently he had some vomiting the evening of 02/09 and additional vomiting on 02/10. He had a fever 102.8 on 02/09. Last recorded bowel movement was 02/03. Tonight he had acute onset of severe hypoxemia and respiratory distress. [facility] called and he was brought emergently to [facility] where his sats were 64% on 100% nonrebreather with mean arterial pressure 44. He was emergently intubated, CVL and art line placed. He is in septic shock. SUBJ: 02/11: Patient remains intubated sedated, critically ill. FiO2 reduced to 80% after increasing PEEP to 12. In severe septic shock Levophed at 16 mcg/m, vasopressin at 0.04 international units. D/W vascular surgery Dr. Enciso. He performed bedside Left upper extremity incision and debridement and excision of septic cephalic vein. 02/12: Remains intubated sedated profoundly septic, in shock on vasopressin and 7 mcg/min Levophed. FiO2 has improved to 45%, WBC count remains elevated with 20 ,000 white count significant left shift. Slight improvement in creatinine 2.9 urine output 750 ml 24 hours. 2-D echo shows LV ejection fraction 20-25%, no vegetation reported. Blood cultures 4 staph aureus. Wound culture pending 02/13: Remains critically ill but stable to improving. WBC count is down to 16, creatinine improving to 2.36. Off all pressors. Urine output also improving. 1.5L in 24 hours 02/14: Extubated 02/13. Tolerating well. WBC now down to 12.8. Creat improving 2.3 to 2. UO 3.4L. remains off all pressors. Was started on Precedex yesterday night for agitation, currently on 0.5 g per KG per hour. Chest x-ray shows left more than right air space disease 02/20/17 Re consult: 62-year-old male who was originally admitted for lower extremity weakness and found to have what was thought to be possible transverse myelitis. His hospital course his included a healthcare associated pneumonia, septic thrombophlebitis, DVT. He was most recently in the hospital floor where he had significant nausea and vomiting and diarrhea. His C. difficile test was recently negative. However, he has experienced worsening acute on chronic renal failure, hypotension, tachycardia, and severe hypoxemia. He did have a bout of vomiting earlier today, and his hospitalist attending suspects that he may have aspirated. He arrives by rapid response to the ICU with a nonrebreather in place in severe respiratory distress with SPO2 of 85%. I emergently intubate the patient, see separate procedure note for details. At this point the patient was hypotensive and tachycardic. He does have a history of an EF of 20%, however clinically he appears in florid septic shock. I placed central line and arterial line started vasopressors and gentle IV fluid resuscitation with 1 L of LR. Patient today was empirically broadened to vancomycin and Zosyn from his oxacillin which was initially treating MSSA bacteremia. He is recultured. Critical-care medicine is consulted to evaluate and manage his worsening multiorgan system failure and decompensated septic shock 02/21: Patient remains intubated sedated. Becomes anxious tachypnea on sedation lightening. Chest x-ray shows mild left lower lobe infiltrate. WBC count is slightly improved today from 23.2 t0 21. C Diff negative. UO adequate, creat slightly worsening. 1.57 today 02/22: Remains intubated sedated tolerated CPAP yesterday, plan is for EGD/ Colonscopy. WBC count back to normal. UO adequate. Creat stable 02/23: Tolerating CPAP trials following commands. Will do a spontaneous breathing trials. Status post EGD colonoscopy yesterday -Gastritis, esophagitis. Diverticulosis and multiple polyps. Urine output adequate but creatinine increasing to 1.7 with patient requiring multiple straight catheterization. We'll reinsert Sloan. 02/24: Breathing comfortably 24 hours after extubation. Protects airway well. 02/25: Excoriate bottom, will place rectal FMS. Start pureed diet. 02/26: Afebrile. Complaining of nausea and vomiting this afternoon. Increased stool output. Continue potassium replacement today. 02/27: 10 PM overnight, acutely hypotensive. Received 3 units PRBCs. Antibiotic coverage broadened to piperacillin/tazobactam, cortisol and 1 dose of vancomycin. Oxacillin drip currently on hold. Symptomatically, patient continues to vague abdominal pain/nausea vomiting which is unchanged for the past several days. Lipase elevated yesterday. Lactic acid normal. Troponin normal. Urinary retention after removal of Sloan. Straight catheter 1300. Cc 02/28: New diagnosis large retroperitoneal hematoma. Received 10 PRBC, 14 FFP, 2 platelets, 1 cryo-, 6 g calcium chloride, 2 is magnesium sulfate and 4 mg Bumex. CTA abdomen revealed possible arterial bleeds iliac, lumbar. Patient is currently on norepinephrine and epinephrine drips and possible need right nephrostomy tube placement due to large hematoma compressing ureter. Intra-abdominal bladder pressures are currently 13 03/01: Afebrile. Received 25 g albumin and 1 unit PRBCs overnight. Intra- abdominal bladder pressures currently 19. Currently on 3 micrograms per minute of norepinephrine. [id number] 1 out of 4 on 4 mics grams per kilogram per minute of cisatracurium. 03/02: Slightly hypothermic overnight. Hemoglobin appears to have stabilized. Troponin bump overnight likely secondary to demand ischemia from hypotension. Hemodynamically stable off all vasopressors. 03/03: Received 1 PRBCs overnight. 3 units currently. Off all vasopressors. Likely rebleeding. Stool is dark. 03/04: Remains unstable. Ventilator dependent. 03/05: afebrile. hgb stable. 03/06: bumex drip started overnight. good uop after bumex initiated. still grossly volume overloaded. Cr downtrending. more awake with transition to propofol. still too volume overloaded to tolerate extubation. hgb stable. 03/07: Afebrile. Tolerating tube feeds at goal with Nepro. Positive BM. On low-dose fentanyl and propofol drips. Potassium currently being replaced. 03/08: Eyes will open on ventilator. Afebrile. Tolerating tube feeding. Failed PSV trial yesterday due to apnea. 03/09: Following commands. Tmax 101. Tolerating tube feeding. One hour PSV trial yesterday. Currently tolerating well so far today 1.5 hours 03/10: Low-grade temperatures. Tolerating PSV trial 10 hours yesterday. Currently at 5/5 at 35%. We'll probably attempt extubation a.m. after hemodialysis. 03/11: Extubated currently in 4 L nasal cannula. Thick secretions thick clear with cough. Currently afebrile. Tolerating diet previously. 03/12: Sleepy this morning but arouses. Following commands. Refusing diet at the present time. On 2 L nasal cannula. 03/13: Patient reintubated last night for worsening respiratory status. Currently sedated on mechanical ventilation. Became hypotensive following intubation and is on Levophed 20 mics per minute. 03/14: Sedated, orally intubated on mech vent at the time of my evaluation this AM, subsequently underwent perc trach placement. Remains on levophed for pressor support. Transfused 1 unit PRBCs today. Persisten 03/15: Trach site clean, dry. CXR with bilateral basilar infiltrates. 03/16: Pulmonary congestion persists. Clinical condition not improving. Prognosis becoming increasingly bleak. 03/17: Glucose intolerance worse. No improvement in neurological function. 03/18: Remains on mechanical ventilation via tracheostomy. Off pressors now. Neurologic status remains poor. 03/19: Drowsy, encephalopathic, arousable. On mechanical ventilation via tracheostomy. Levemir increased for hyperglycemia today. Remains off pressors 03/20: More awake, moves both upper extremities. On mechanical ventilation via tracheostomy. Daily C Pap trials ongoing. 03/21: Awake and alert. On mechanical ventilation via tracheostomy. Opens and closes eyes on command. 03/22: Awake and alert. Tolerated T PIECE for 7 hours yesterday. Dialyzed today. 03/23: Currently on T piece trial. Status post dialysis yesterday on 3 L. Awake and alert. Wants to eat. 03/24: Currently afebrile. Hemodialysis catheter discontinued yesterday from left IJ. Persistent leukocytosis noted. Potassium will be replaced. Furosemide 40 mg twice a day IV to 20 mg IV twice a day 03/25: WBC count unchanged. Patient on T piece with humidified air greater than 48 hours, tolerating it well. Reconsulted 04/12: The patient was transferred emergently from the floor/ [facility]. Patient was initially seen by software developer manager Dr. Estrada, and the patient was noted to be tachypneic on T piece of 40%. ABGs were performed which showed a PaO2 of 60 on T piece of FiO2 of 40%. Chest x-ray was performed which showed loss of entire left hemidiaphragm clerical dentist assistant consolidation in the left lower lobe. Concern for mucus plugging versus fluid. The patient was transferred emergently to [facility] placed on a ventilator CT of the chest is pending. Upon arrival in the room the patient is alert and oriented, mouthing words, nodding head to yes and no questions O2 sat is 100% but patient is currently on mechanical ventilation. Currently in no respiratory distress. 04/13: Tmax 99.8. The patient's oxygen requirements have decreased currently FiO2 35% with a PaO2 1 blood gas of 85, O2 saturation 100%. No respiratory distress noted. Patient underwent CT of the chest yesterday noted pleural effusions left greater than right, diagnostic/and therapeutic CT thoracentesis plan for this a.m.. 04/14: Patient underwent CT-guided thoracentesis of the right side with approximately 600 cc withdrawn. Today software developer manager Dr. LABOY in and up size indwelling 6.0 Shiley to a 8.0 Shiley. Minimal bleeding noted around the site. X-ray improving. Patient started on CPAP trials today, as well as tube feeds were initiated. 04/15: Placed on T piece this morning via tracheostomy. Appears to be tolerating it. Laying in bed not in any acute distress. 04/16: Awake and alert. Tolerating T piece. Tolerating PEG feeds. 04/17: Awake and alert. Tolerating T piece. Tolerating tube feeds via PEG 04/18: Awake and alert. Tolerating TPs. Tolerating tube feeds. Passed swallow eval 04/19: Awake and alert. Remains on T piece. Wants to move out of ICU as he indicates to me once again as he has for the past few days. Awaiting CIC bed 04/20: Awake and alert. Remains on T piece. Developed hypotension last night for which she was transiently on Levophed however has been off since early this morning. ID adjusting antibiotics and working up for new sepsis. 04/21: Awake and alert. On T piece. Awaiting [facility]IC bed for the last few days. 04/22: Awake and alert. Remains on T piece. Received 500 cc normal saline this morning for tachycardia. 04/23 No events overnight. Remains on TP's with 35% FIO2. Afebrile. 04/24: Resting comfortably. Got short of breath with Passy-Rafy valve which was taken off. 04/25: Remains on T piece. Awaiting transfer out of ICU. 04/26: Remains on T piece. Still awaiting transfer out of ICU since 04/17. 04/27 Patient became hypotensive, bradycardic and hypoxic, ABG on TP's last night showed acute hypercapnic resp acidosis (PH 7.10, CO2: 80) he was subsequently placed on mechanical ventilator. Patient was given Albumin, 2u PRBC and started on Levophed 3mics. Renal function worse today with Cr: 1.53 from 1.13 04/28 No events overnight off Levophed since yesterday. On no sedation. Afebrile. 04/29 Patient is on ventilator via trach. T;100.4 04/30 Patient remains on ventilator via trach. Afebrile. 05/01 No events overnight. Afebrile. 05/02 No events overnight. On ventilator via trach. T: 100.1 last night. 05/03 Patient remains on ventilator via trach. 05/04 No events overnight. Afebrile. Tolerating tube feeds. 05/05: more hypoxic this morning with increased secretions. fio2 rising. ID on board. leukocytosis persists. 05/06: continues to clinically decline. hypotensive and anemic. no evidence of GI bleeding, but acute drop in hgb. no uop overnight. restarted norepinephrine this morning. 2 units prbc ordered. recultured. had discussion with his son: with recurrent bleeding and worsening septic shock, unlikely to survive this hospital stay. son continues to press for aggressive measures. 05/07: continues to worsen overall. mental status still declining. off vasopresors this morning, but kidney injury worsening. wbc uptrending. ID still involved. hgb stabilized. likely too unstable for travel to CT scan. Palliative re-engaged to have further discussions with Son. I spoke with him yesterday, and Dr. Hogan spoke with him again overnight. likely poor prognosis at this point. Objective Vital Signs Date Time Temp Pulse Resp B/P (MAP) Pulse Ox O2 Delivery O2 Flow Rate FiO2 05/07/17 16:00 50 05/07/17 14:31 99 05/07/17 14:00 72 05/07/17 12:00 97.6 13 134/74 (94) Intake and Output 05/07/17 05/07/17 05/08/17 08:00 16:00 00:00 Intake Total 1851 ml Output Total 600 ml Balance 1251 ml Result Diagram: 05/07/17 0341 05/07/17 0341 Imaging Last Impressions Chest X-Ray 05/03/17 0000 Signed Impressions: Service Date/Time: April 10:19 - CONCLUSION: 1. Poor lung aeration 2. Interstitial vascular prominence 3. Significant left lung opacity characteristic of moderate pleural effusion and underlying basilar air space disease. Lenny Ware MD Thoracentesis 04/13/17 1054 Signed Impressions: Service Date/Time: Thursday, April 13, 2017 15:26 - CONCLUSION: Uncomplicated CT-guided right thoracentesis. Candido Mendoza Jr., MD Chest CT 04/12/17 1558 Signed Impressions: Service Date/Time: March 17:51 - CONCLUSION: 1. Slight increase in size of bilateral effusions and basilar atelectasis, left greater than right compared with February 27. Tracheostomy in good position. Trace Holloway MD Renal Ultrasound 04/02/17 0000 Signed Impressions: Service Date/Time: Sunday, April 02, 2017 16:59 - CONCLUSION: Limited exam with the left kidney being unable to be evaluated in the bladder not distended. There do appear to be multiple shadowing stones at the right kidney without hydronephrosis. Angelo Manzo MD Wrist X-Ray 03/27/17 0000 Signed Impressions: Service Date/Time: Monday, March 27, 2017 13:21 - CONCLUSION: 1. No acute fracture is identified. A portion of the previously documented distal ulna fracture remains visualized. 2. 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 Angelo Allen MD Aortography 02/28/17 0000 Signed Impressions: Service Date/Time: Tuesday, February 28, 2017 08:01 - CONCLUSION: 1. Active hemorrhage from distal right lateral sacral and iliolumbar branches successfully coil and Gelfoam embolized, as above. Juan Bhakta MD Abdomen/Pelvis CT 02/28/17 0000 Signed Impressions: Service Date/Time: Tuesday, February 28, 2017 06:51 - CONCLUSION: 1. The right retroperitoneal hematoma has increased in size, as above. There are 2 serpiginous arterially enhancing structures visualized, one in the right psoas muscle and another extending into the hematoma at the right iliac fossa. These could represent sites of continued active bleeding. 2. Stable moderate size left and small right pleural effusion with associated compressive atelectasis. 3. Stable small volume of free fluid in the abdomen and pelvis. There is also anasarca. The findings concerning the retroperitoneal hematoma were discussed with Dr. Aguiar via telephone at approximately 7: 10 AM on 02/28/2017. Angelo Allen MD Abdomen X-Ray 02/26/17 Signed Impressions: Service Date/Time: Sunday, February 26, 2017 14:52 - CONCLUSION: 1. Nonobstructive bowel gas pattern. Juan Bhakta MD Upper Extremity Ultrasound 02/10/17 0000 Signed Impressions: Service Date/Time: Friday, February 10, 2017 18:46 - CONCLUSION: Occlusive thrombus in the cephalic and basilic veins. Benjamin Person MD Lung Scan- Nuclear Medicine 02/10/17 0000 Signed Impressions: Service Date/Time: Friday, February 10, 2017 22:17 - CONCLUSION: Low probability pulmonary embolism. Candido Patton MD Head CT 02/10/17 0000 Signed Impressions: Service Date/Time: Friday, February 10, 2017 23:51 - CONCLUSION: Negative noncontrast CT brain. Candido Patton MD Lumbar Puncture Fluoroscopy 02/01/17 Signed Impressions: Service Date/Time: January 09:35 - CONCLUSION: Uncomplicated fluoroscopically guided lumbar puncture. CSF was clear. Nabeel Peralta MD Head Magnetic Resonance Angiography 01/27/17 Signed Impressions: Service Date/Time: Friday, January 27, 2017 10:33 - CONCLUSION: No intracranial vascular abnormality is identified. There is no aneurysm visualized. Angelo Allen MD IVC Filter Placement X-Ray 01/25/17 Signed Impressions: Service Date/Time: January 10:29 - CONCLUSION: Uncomplicated inferior vena cava filter placement as above. Yung Fowler MD Thoracic Spine MRI 01/24/17 Signed Impressions: Service Date/Time: Tuesday, January 24, 2017 22:29 - CONCLUSION: 1. Mild degenerative spondylosis most prominently at T11-L1 with slight effacement of the anterior thecal sac and left lateral recess. No significant neural foraminal stenosis. 2. No acute fracture. Juan Bhakta MD Lumbar Spine MRI 01/23/17 Signed Impressions: Service Date/Time: Monday, January 23, 2017 17:01 - CONCLUSION: 1. At L4-5 is a broad-based disc protrusion with severe central canal and lateral recess stenosis and flattening of the exiting right L4 nerve root. 2. L5-S1 there is a disc protrusion and moderate stenosis with flattening of the exiting L5 nerve roots bilaterally. 3. At L3-4 there is a moderate to severe central stenosis and lateral recess stenosis with mild foraminal stenosis. 4. No acute fracture or spondylolisthesis. Trace Holloway MD Lower Extremity Ultrasound 01/23/17 Signed Impressions: Service Date/Time: Monday, January 23, 2017 09:53 - CONCLUSION: Bilateral focal lower extremity DVT involving the posterior tibial veins. Angelo Garrido MD Cervical Spine MRI 01/23/17 Signed Impressions: Service Date/Time: Monday, January 23, 2017 17:01 - CONCLUSION: 1. Multilevel cervical spine degenerative changes as above. 2. Mild degrees of spinal stenosis at C3/C4-C6/C7. No cord compression or cord signal abnormality. 3. Age indeterminate left paracentral/foraminal disc protrusion at C6/C7. 4. Multilevel foraminal stenosis, most severe on the left at C6/C7. Please see individual levels above. 5. No fracture or subluxation of the cervical spine. Angelo Garrido MD Brain MRI 01/23/17 0000 Signed Impressions: Service Date/Time: Monday, January 23, 2017 17:01 - CONCLUSION: 1. No acute stroke or other acute intracranial abnormality demonstrated. 2. Moderate severity chronic white matter changes, nonspecific but most likely related to chronic small vessel disease. 3. Few scattered tiny lacunar infarcts of the brainstem. 4. Given the findings are not entirely specific, clinical evaluation for possible multiple sclerosis recommended. Angelo Garrido MD Knee X-Ray [id number]/[id number] Signed Impressions: Service Date/Time: Sunday, January 22, 2017 21:17 - CONCLUSION: 1. Evidence of moderate to large joint effusion. 2. No acute fracture or malalignment. 3. Mild 3 compartment osteoarthritic change. Benjamin Person MD Hip and Pelvis X-Ray [id number] Signed Impressions: Service Date/Time: Sunday, January 22, 2017 21:10 - CONCLUSION: 1. Mild to moderate degenerative change of both hips with no acute fracture or malalignment. There is flattening and remodeling of the right humeral head. Benjamin Person MD Objective Remarks GENERAL: 62-year-old male, resting in bed, on mechanical ventilation via trach HEENT: Normocephalic. Atraumatic. Pupils equal, round, reactive. NECK: Tracheostomy in place CHEST: b/l equal air entry CARDIOVASCULAR: normal rate, regular rhythm. ABDOMEN distended. No rigidity. Umbilical hernia is reducible. No guarding. PEG tube in place : Positive scrotal edema Sloan in situ MUSCULOSKELETAL: Pulses 2+. 1+ bilateral upper and lower extremity edema. NEUROLOGICAL: RASS -3. obtunded. weakly withdraws to pain x 4. Procedures 01/25/2017- Retrievable IVC Filter placement 01/26/17-lumbar puncture with fluoroscopy-by interventional radiology 02/01/17- lumbar puncture fluoroscopy by interventional radiology 02/10/17- Endotracheal Intubation 02/10/17-left IJ central venous line placed 02/10/17-left femoral arterial line placed 02/11/17-Diagnostic and therapeutic bronchoscopy with bronchoalveolar lavage 02/11/17-Left upper extremity incision and debridement with excision of septic cephalic vein 02/13/17- Extubated 02/20/17- endotracheal intubation 02/20/17- Left subclavian central line placement 02/20/17-Right radial A-line placement 02/22/17-EGD/colonoscopy 02/28/17-right radial a line 02/28/17- Endotracheal intubation 02/28/17- right sided introducer catheter placement 02/28/17- Right IJ central line placement 02/28/17-Right chest tube placement 02/28/17- Embolization of inferior and superior sacral branches of right internal iliac artery 03/01/17- Hemodialysis access catheter 03/03/17-Right IJ central line placement 03/11/17-Extubated 03/13/17- Endotracheal intubation 03/14/17-Tracheostomy placement, trach downsized to 6.0 Anni 03/30/17 03/15/17-PEG tube placement 04/11/17-CT Chest 04/13/17-thoracentesis right 600 cc removed Date of Insertion: Mar 03, 2017 Line: Central Venous Catheter Side: Right Location: Internal, Jugular A/P Problem List: (1) Septic shock ICD Code: A41.9 - Sepsis, unspecified organism; R65.21 - Severe sepsis with septic shock Status: Acute (2) Acute respiratory failure ICD Code: J96.00 - Acute respiratory failure, unspecified whether with hypoxia or hypercapnia Status: Chronic (3) Thrombophlebitis arm ICD Code: I80.8 - Phlebitis and thrombophlebitis of other sites (4) Aspiration pneumonia ICD Code: J69.0 - Pneumonitis due to inhalation of food and vomit Status: Acute (5) Atelectasis of left lung ICD Code: J98.11 - Atelectasis Status: Acute (6) Quadriparesis ICD Code: G82.50 - Quadriplegia, unspecified Status: Acute (7) DVT (deep venous thrombosis) ICD Code: I82.409 - Acute embolism and thrombosis of unspecified deep veins of unspecified lower extremity (8) Altered mental status ICD Code: R41.82 - Altered mental status, unspecified Status: Acute (9) CKD (chronic kidney disease) stage 3, GFR 30-59 ml/min ICD Code: N18.3 - Chronic kidney disease, stage 3 (moderate) Status: Chronic (10) Acute renal failure ICD Code: N17.9 - Acute kidney failure, unspecified Status: Acute (11) Diabetes mellitus ICD Code: E11.9 - Type 2 diabetes mellitus without complications Status: Chronic (12) Distal end of ulna fracture, closed ICD Code: S52.609A - Unspecified fracture of lower end of unspecified ulna, initial encounter for closed fracture Status: Acute (13) Gout ICD Code: M10.9 - Gout, unspecified Status: Chronic Assessment and Plan Assessment: 62yM with chronic multi-organ dysfunction now with recurrent septic shock. hgb stable, active bleeding has appeared to stop at this point. ID to re- eval abx regimen. goals remain aggressive. no improvements. re-engage nephrology for ongoing care. poor candidate for recurrent acute renal replacement therapy. overall poor prognosis. NEURO/PSYCH: Acute metabolic encephalopathy- persistent, worsening this morning. Quadriparesis secondary to suspected transverse myelitis Recurrent falls On no sedation. Monitor neuro status. Suspected transverse myelitis. Received methylprednisolone 250 mg IV every 6 hours 01/27-02/02, started back on hydrocortisone 02/21/17, initially tapering to 50 mg IV every 8 hours starting received 1 dose at 2100 prior to becoming hypotensive. weaning hydrocortisone taper and stopped 03/09. Resumed hydrocortisone 50mg IV Q6hrly on 03/14 as patient became hypotensive following intubation on 03/13 requiring levophed. LP 01/26 and 02/01. CSF culture negative 01/26, 02/01 Oligoclonal bands negative. CSF/serum IgG index is not elevated. VDRL nonreactive. Cryptococcal antigen negative. Brain MRI 01/23 no acute stroke. Few scattered lacunar infarcts of the brainstem. Moderate chronic white matter changes. MRI cervical/thoracic spine- mild spinal stenosis C3/C4 to C6/C7. No cord compression. RPR negative Neurology has been following, Dr. Crenshaw. Repeat CT brain 02/10 - negative Continue PT/OT oxycodone to 5mg po q4h scheduled restart hydrocortisone given shock. RESP: Acute hypoxemic respiratory failure - persistent. Healthcare associated pneumonia/Aspiration Pneumonia - recurrent. S/P Right-sided chest tube 02/28 Continue with vent support keep sat >92% Bronchodilators, pulm toilet, trach care s/p perc tracheostomy 03/14. Pulmonology following Dr. Estrada 04/13 CT guided thoracentesis scheduled emergently as discussed with Dr. Estrada - 600cc removed (right) 04/14-tracheostomy up sized to 8.0 [place] by software developer manager Dr. Estrada at bedside CV: Systolic heart failure likely chronic with ejection fraction 20-25% Hyperlipidemia History of hypertension Mild TR Sinus tachycardia Elevated troponin likely type II demand ischemia Septic Shock Hemorrhagic shock hold lopressor given shock [On Lopressor 25mg Q12] levophed for goal map > 65 mmHg. Atorvastatin 10 mg by mouth daily for dyslipidemia. 2-D echocardiogram 01/11 revealed EF 20-25%. Mild TR. Pulmonary arterial pressures were normal around 20 GI: Large right retroperitoneal hematoma - resolved. Erosive esophagitis Adenomatous/hyperplastic colon polyps Severe acute protein calorie malnutrition Nausea/vomiting - resolved. Diarrhea Gastritis Diverticulosis Internal and external hemorrhoids Hiatal hernia Elevated lipase On tube feeds-Nepro@ 40ml/hr 02/27 CT chest/abdomen and pelvis - 9.4 x 7.5 renal and 16 x 12 cm right psoas muscle hematoma. Fluid around liver and spleen. Right-sided nephrolithiasis CTA abdomen 02/28 - possible blushing around iliac/lumbar vessels Discussed with IR. s/p attempted embolization CT abdomen and pelvis 02/10 atrophic left kidney. Bilateral inguinal hernias fat- containing. Nonobstructing 12 mm right kidney stone repeat CT abd/pelvis did not show evidence of obstruction. patient clinically has been having diarrhea (c. diff negative 02/19). also with nausea/vomiting of unclear etiology. EGD/Colonoscopy-02/22/17 showed gastritis esophagitis, hiatal hernia, diverticulosis and multiple polyps in descending colon and sigmoid which were snared biopsied. 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 Liao. On Lasix 20mg Q12, IV Albumin RIOS/SPEP negative. 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 Recommended nephrostomy tube if obstruction Nephrology consulted, off hemodialysis. Making urine. ICU electrolyte replacement protocol Last IHD was 03/22 Free water 300ml Q4, monitor sodium level.. ID: Septic shock- recurrent Abscess and Suppurative thrombophlebitis left upper extremity MSSA bacteremia Klebsiella UTI ESBL positive Acute aspiration pneumonia/HCAP 04/27 Sputum cx: Pseudomonas, Urine cx: Ivania Bustillo , BC: 05/24 bottles: Coag negative staph likely contaminant 04/29 BC: NGTD 05/01 Wound cx: Pseudomonas, Group D enterococcus, GNR Previously treated with Bactrim, ertapenem, intermittent vancomycin, nafcillin Blood cultures 2, UA ESBL positive Klebsiella UTI Sputum 03/14 - Pseudomonas came back resistant to imipenem, Stenotrophomonas maltophilia Antibiotics per ID. on Diflucan, Zerbaxa, ID is following. C-diff PCR negative wound service is following. stage IV sacral ulcer, ulcer right ankle/LE reculture. ID on board. leukocytosis is worse. HEME: Acute blood loss anemia- worsening. DVT, bilateral posterior tibial vein, IVC filter Septic thrombophlebitis with occlusive thrombus mid cephalic and basilic vein side Monitor CBC s/p transfusion 2units PRBC ( 04/26) Received 10 PRBC, 14 FFP, 2 platelets, 1 cryo-02/28 Received 3 units PRBCs Ultrasound 01/23/17 - Bilateral lower extremity with occlusive posterior tibial vein DVTs. Heparin was initially started for DVT but was placed on hold due to LP with suspected traumatic tap. Currently holding full anticoagulation with enoxaparin 100 mg IV twice a day due to anemia as of 02/26 IVC filter was placed 01/25/17. Ultrasound LUE 02/10 occlusive thrombus mid cephalic vein, basilic vein.s. Transfuse 3 units PRBCs 02/27 Transfuse 2 units PRBCs 03/01. Transfused 1 unit PRBCs on 03/14 transfused 2 units prbc 05/06 daily cbc ENDO: Diabetes mellitus Hypoglycemia History of prior adrenal insufficiency with shock Gout Accu-Cheks to maintain euglycemia Novulin R every 4 hours. Low Regimen MSK: Right distal ulna fracture. Recommended nonoperative management. PROPH: Lansoprazole 30 mg twice a day twice a day for stress ulcer prophylaxis. Has IVC filter. Therapeutic enoxaparin was placed on hold for retroperitoneal hematoma ACCESS: Right subclavian CVP placed 04/27. keep given vasopressor requirement. Dispo: remain in ICU. critically ill Problem Qualifiers (1) Aspiration pneumonia: (2) DVT (deep venous thrombosis): Qualified Codes: I82.443 - Acute embolism and thrombosis of tibial vein, bilateral (3) Acute renal failure: Qualified Codes: N17.9 - Acute kidney failure, unspecified (4) Diabetes mellitus: (5) Gout: Anthony Rivas MD May 07, 2017 16:31
--- NOTE | 2017-05-07 16:32 | HHI.HCPN ---
Reason for visit a. To assist with evaluation and management of symptoms including: shortness of breath, pain, debility. b. To assist medical decision maker(s) with: better understanding of current medical conditions; weighing benefits/burdens of medical treatment options; making medical treatment decisions. Subjective/Interval History Patient seen and examined in ICU. SisterDeb at bedside. Discussed with Dr. Mendoza and nurse. Dr. Mendoza reports decline over the weekend, hypotensive and anemic post blood transfusion. No evidence of GI bleed. Decreased UOP. Worsening septic shock and unlikely to survive this hospitalization. Dr. Mendoza spoke with sonDavie who verbalized goal for continue aggressive care. He does not awaken to voice or exam. He is much less responsive compared to prior visits, sister feels he is not responding to her either today. Afebrile. On vent FiO2 45%. Off sedation. Hemoglobin 9.1 post transfusion. WBC has increased from 26.7 to 32.1. Worsening renal function creatinine 2.36 to 2.58. 05/06/17 urine culture preliminarily positive yeast. No new imaging. . Family/friend interactions Discussed with sister at bedside. She indicate she does not think pt will survive and does not think he would want to live like this. She tells me son is not ready to make any decisions. Discussed option for transition to comfort and what that looks like. She seems to be open to comfort measures, though she is not the legal decisions. 4:30pm: Spoke with sonDavie via phone. He verbalized 'patient would not want to like this.' He also states "my dad taught me to never give up." When ' its your time, its your time.' After lengthy conversation he elects alternate CODE: Intubation Only. He says he is not ready to make other decisions until after he has time to speak with family. We agreed to talk again on 05/09/17 for further clarification of goals. My cell number was provided should he have questions in the meantime. . Advance Directives Living Will: Never completed Health Care Surrogate: Never completed Durable Power of Freight Flow Sales Leader: Never completed Advance Directive Specifics Health Care Surrogate(s): Healthcare proxys- Son-Davie Kerr - ; Son-Arnel Kerr- -cell -home -Opted out though he wants to be updated on patient`s medical status. Documented care wishes: No known documented care wishes have been completed. . Significant change in goals: Intubation Only. Goals remain aggressive short of NO chest compressions, ACLS or shock at this time. Family seems to be considering comfort measures, not yet ready to make this decision today. Will talk again on 05/09/17 per son request. . Objective Vital Signs Date Time Temp Pulse Resp B/P (MAP) Pulse Ox O2 Delivery O2 Flow Rate FiO2 05/07/17 14:31 99 45 05/07/17 14:00 72 05/07/17 12:00 97.6 83 13 134/74 (94) 99 05/07/17 12:00 50 05/07/17 12:00 83 05/07/17 11:20 96 45 05/07/17 11:05 17 05/07/17 10:00 86 05/07/17 08:00 91 05/07/17 08:00 50 05/07/17 08:00 98.7 91 17 126/61 (82) 96 05/07/17 07:55 99 45 05/07/17 07:25 135/64 05/07/17 06:08 141/64 05/07/17 06:00 114 05/07/17 04:40 98 50 05/07/17 04:00 99.6 105 25 136/63 (87) 98 05/07/17 04:00 45 05/07/17 04:00 105 05/07/17 03:46 104 142/63 05/07/17 02:00 104 05/07/17 01:07 100 50 05/07/17 00:00 50 05/07/17 00:00 105 05/07/17 00:00 99.5 105 21 145/66 (92) 99 05/06/17 22:36 100 50 05/06/17 22:00 104 05/06/17 20:30 129/57 05/06/17 20:00 50 05/06/17 20:00 104 05/06/17 20:00 100.7 104 20 135/63 (87) 100 05/06/17 19:40 100 50 05/06/17 18:00 102 05/06/17 16:27 99 50 05/06/17 16:00 100.4 99 22 128/60 (82) 99 05/06/17 16:00 50 05/06/17 16:00 99 Intake & Output 05/07/17 05/07/17 07:00 19:00 Intake Total 1951 ml Output Total 600 ml Balance 1351 ml IV Total 600 ml Tube Feeding 451 ml Other 900 ml Output Urine Total 200 ml Stool Total 400 ml Physical Exam CONSTITUTIONAL/GENERAL: This is an ill-looking patient. TUBES/LINES/DRAINS: PEG tube, Tracheostomy on a mechanical ventilator, PIVs, catheter. SKIN: No jaundice. Ecchymoses on upper extremities. Sacral pressure wound and L heel pressure injury per EMR. Wound to anterior neck - tracheostomy insertion area with a foam dressing. Not diaphoretic. EYES: eyes closed. ENT: Trached. Nose without bleeding or purulent drainage. Moist oral mucosa. NECK: Trachea midline. #8 Tracheostomy midline- patient on mechanical ventilation CARDIOVASCULAR: Regular rate and rhythm without murmurs, gallops, or rubs. No JVD. RESPIRATORY/CHEST: Symmetrical, rhonchi and wheezy to auscultation. Small amount of yellow secretions around trach . Breath sounds equal bilaterally. Patient on mechanical ventilation GASTROINTESTINAL: Abdomen soft, nondistended. No guarding. Bowel sounds present. GENITOURINARY: Without palpable bladder distension. catheter in place. MUSCULOSKELETAL: Gout tophi to fingers, knees, elbows and both ankles. Edema + 3 noted to all 4 extremities. NEUROLOGICAL: Trached. Unresponsive. PSYCHIATRIC: Unresponsive. . Diagnostic Tests Laboratory Laboratory Tests Test 05/05/17 05:14 05/06/17 04:50 05/06/17 10:41 05/06/17 13:00 White Blood Count 20.3 TH/MM3 (4.0-11.0) 26.7 TH/MM3 (4.0-11.0) Red Blood Count 2.70 MIL/MM3 (4.50-5.90) 2.50 MIL/MM3 (4.50-5.90) Hemoglobin 7.1 GM/DL (13.0-17.0) 6.8 GM/DL (13.0-17.0) Hematocrit 23.0 % (39.0-51.0) 21.5 % (39.0-51.0) Mean Corpuscular Volume 85.3 FL (80.0-100.0) 86.2 FL (80.0-100.0) Mean Corpuscular Hemoglobin 26.3 PG (27.0-34.0) 27.2 PG (27.0-34.0) Mean Corpuscular Hemoglobin Concent 30.9 % (32.0-36.0) 31.5 % (32.0-36.0) Red Cell Distribution Width 17.8 % (11.6-17.2) 17.9 % (11.6-17.2) Platelet Count 213 TH/MM3 (150-450) 177 TH/MM3 (150-450) Mean Platelet Volume 7.9 FL (7.0-11.0) 8.3 FL (7.0-11.0) Neutrophils (%) (Auto) 71.4 % (16.0-70.0) Lymphocytes (%) (Auto) 7.3 % (9.0-44.0) Monocytes (%) (Auto) 7.6 % (0.0-8.0) Eosinophils (%) (Auto) 13.2 % (0.0-4.0) Basophils (%) (Auto) 0.5 % (0.0-2.0) Neutrophils # (Auto) 14.5 TH/MM3 (1.8-7.7) Lymphocytes # (Auto) 1.5 TH/MM3 (1.0-4.8) Monocytes # (Auto) 1.5 TH/MM3 (0-0.9) Eosinophils # (Auto) 2.7 TH/MM3 (0-0.4) Basophils # (Auto) 0.1 TH/MM3 (0-0.2) CBC Comment AUTO DIFF Differential Total Cells Counted 100 Neutrophils % (Manual) 47 % (16-70) Band Neutrophils % 9 % (0-6) Lymphocytes % 9 % (9-44) Monocytes % 6 % (0-8) Eosinophils % 17 % (0-4) Neutrophils # (Manual) 13.6 TH/MM3 (1.8-7.7) Metamyelocytes 4 % (0-1) Myelocytes 7 % (0-0) Differential Comment FINAL DIFF MANUAL Blastocytes 1 % (0-0) Platelet Estimate NORMAL (NORMAL) Platelet Morphology Comment NORMAL (NORMAL) Basophilic Stippling FAINT (NORMAL) Blood Urea Nitrogen 65 MG/DL (7-18) 69 MG/DL (7-18) Creatinine 2.02 MG/DL (0.60-1.30) 2.36 MG/DL (0.60-1.30) Random Glucose 121 MG/DL (74-106) 178 MG/DL (74-106) Calcium Level 9.7 MG/DL (8.5-10.1) 10.2 MG/DL (8.5-10.1) Sodium Level 146 MEQ/L (136-145) 143 MEQ/L (136-145) Potassium Level 3.0 MEQ/L (3.5-5.1) 2.7 MEQ/L (3.5-5.1) Chloride Level 110 MEQ/L (98-107) 108 MEQ/L (98-107) Carbon Dioxide Level 25.8 MEQ/L (21.0-32.0) 24.6 MEQ/L (21.0-32.0) Anion Gap 10 MEQ/L (5-15) 10 MEQ/L (5-15) Estimat Glomerular Filtration Rate 34 ML/MIN (>89) 28 ML/MIN (>89) Blood Gas Puncture Site LT RADIAL Blood Gas Patient Temperature 98.6 Blood Gas HCO3 21 mmol/L (22-26) Blood Gas Base Excess -4.6 mmol/L (-2-2) Blood Gas Oxygen Saturation 97 % (90-100) Arterial Blood pH 7.31 (7.380-7.420) Arterial Blood Partial Pressure CO2 42 mmHg (38-42) Arterial Blood Partial Pressure O2 184 mmHg (61-120) Arterial Blood Oxygen Content 10.5 Vol % (12.0-20.0) Arterial Blood Carboxyhemoglobin 1.2 % (0-4) Arterial Blood Methemoglobin 1.1 % (0-2) Blood Gas Hemoglobin 7.4 G/DL (12.0-16.0) Oxygen Delivery Device VENTILATOR Blood Gas Ventilator Setting Blood Gas Inspired Oxygen 50 % Urine Color YELLOW (YELLW/STRAW) Urine Turbidity HAZY (CLEAR) Urine pH 5.5 (5.0-8.5) Urine Specific [place] 1.018 (1.002-1.035) Urine Protein 100 mg/dL (NEG-TRACE) Urine Glucose (UA) NEG mg/dL (NEG) Urine Ketones TRACE mg/dL (NEG) Urine Occult Blood MOD (NEG) Urine Nitrite NEG (NEG) Urine Bilirubin NEG (NEG) Urine Urobilinogen LESS THAN 2.0 MG/DL (LESS Urine Leukocyte Esterase LARGE (NEG) Urine RBC /hpf (0-3) Urine WBC /hpf (0-5) Urine WBC Clumps MANY (NONE) Urine Squamous Epithelial Cells 5 /hpf (0-5) Urine Amorphous Sediment FEW Urine Bacteria OCC /hpf (NONE) Urine Mucus FEW /lpf (OCC) Urine Yeast (Budding) MANY (NONE) Microscopic Urinalysis Comment CATH-CULTURE IND Test 05/07/17 03:41 White Blood Count 32.1 TH/MM3 (4.0-11.0) Red Blood Count 3.28 MIL/MM3 (4.50-5.90) Hemoglobin 9.1 GM/DL (13.0-17.0) Hematocrit 28.1 % (39.0-51.0) Mean Corpuscular Volume 85.8 FL (80.0-100.0) Mean Corpuscular Hemoglobin 27.7 PG (27.0-34.0) Mean Corpuscular Hemoglobin Concent 32.3 % (32.0-36.0) Red Cell Distribution Width 16.9 % (11.6-17.2) Platelet Count 265 TH/MM3 (150-450) Mean Platelet Volume 8.4 FL (7.0-11.0) Blood Urea Nitrogen 71 MG/DL (7-18) Creatinine 2.58 MG/DL (0.60-1.30) Random Glucose 238 MG/DL (74-106) Calcium Level 10.2 MG/DL (8.5-10.1) Sodium Level 138 MEQ/L (136-145) Potassium Level 3.5 MEQ/L (3.5-5.1) Chloride Level 104 MEQ/L (98-107) Carbon Dioxide Level 21.5 MEQ/L (21.0-32.0) Anion Gap 13 MEQ/L (5-15) Estimat Glomerular Filtration Rate 25 ML/MIN (>89) Result Diagram: 05/07/17 0341 05/07/17 0341 Microbiology Microbiology Date/Time Source Procedure Growth Status 05/06/17 13:26 Blood Peripheral Aerobic Blood Culture - Preliminary NO GROWTH IN 1 DAY Resulted 05/06/17 13:26 Blood Peripheral Anaerobic Blood Culture - Preliminary NO GROWTH IN 1 DAY Resulted 05/06/17 13:16 Blood Peripheral Aerobic Blood Culture - Preliminary NO GROWTH IN 1 DAY Resulted 05/06/17 13:16 Blood Peripheral Anaerobic Blood Culture - Preliminary NO GROWTH IN 1 DAY Resulted 05/06/17 11:35 Sputum Endotracheal Gram Stain - Final Resulted 05/06/17 11:35 Sputum Endotracheal Sputum Culture - Preliminary NO GROWTH IN 24 HOURS. Resulted 05/06/17 13:00 Urine Catheterized Urine Urine Culture - Preliminary Yeast Species Resulted Imaging Last Impressions Chest X-Ray 05/03/17 0000 Signed Impressions: Service Date/Time: April 10:19 - CONCLUSION: 1. Poor lung aeration 2. Interstitial vascular prominence 3. Significant left lung opacity characteristic of moderate pleural effusion and underlying basilar air space disease. Lenny Ware MD Thoracentesis 04/13/17 1054 Signed Impressions: Service Date/Time: Thursday, April 13, 2017 15:26 - CONCLUSION: Uncomplicated CT-guided right thoracentesis. Candido Mendoza Jr., MD Chest CT 04/12/17 1558 Signed Impressions: Service Date/Time: March 17:51 - CONCLUSION: 1. Slight increase in size of bilateral effusions and basilar atelectasis, left greater than right compared with February 27. Tracheostomy in good position. Trace Holloway MD Renal Ultrasound 04/02/17 0000 Signed Impressions: Service Date/Time: Sunday, April 02, 2017 16:59 - CONCLUSION: Limited exam with the left kidney being unable to be evaluated in the bladder not distended. There do appear to be multiple shadowing stones at the right kidney without hydronephrosis. Angelo Manzo MD Wrist X-Ray 03/27/17 0000 Signed Impressions: Service Date/Time: Monday, March 27, 2017 13:21 - CONCLUSION: 1. No acute fracture is identified. A portion of the previously documented distal ulna fracture remains visualized. 2. 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 Angelo Allen MD Aortography 02/28/17 0000 Signed Impressions: Service Date/Time: Tuesday, February 28, 2017 08:01 - CONCLUSION: 1. Active hemorrhage from distal right lateral sacral and iliolumbar branches successfully coil and Gelfoam embolized, as above. Juan Bhakta MD Abdomen/Pelvis CT 02/28/17 0000 Signed Impressions: Service Date/Time: Tuesday, February 28, 2017 06:51 - CONCLUSION: 1. The right retroperitoneal hematoma has increased in size, as above. There are 2 serpiginous arterially enhancing structures visualized, one in the right psoas muscle and another extending into the hematoma at the right iliac fossa. These could represent sites of continued active bleeding. 2. Stable moderate size left and small right pleural effusion with associated compressive atelectasis. 3. Stable small volume of free fluid in the abdomen and pelvis. There is also anasarca. The findings concerning the retroperitoneal hematoma were discussed with Dr. Aguiar via telephone at approximately 7: 10 AM on 02/28/2017. Angelo Allen MD Abdomen X-Ray 02/26/17 0000 Signed Impressions: Service Date/Time: Sunday, February 26, 2017 14:52 - CONCLUSION: 1. Nonobstructive bowel gas pattern. Juan Bhakta MD Upper Extremity Ultrasound 02/10/17 0000 Signed Impressions: Service Date/Time: Friday, February 10, 2017 18:46 - CONCLUSION: Occlusive thrombus in the cephalic and basilic veins. Benjamin Person MD Lung Scan- Nuclear Medicine 02/10/17 0000 Signed Impressions: Service Date/Time: Friday, February 10, 2017 22:17 - CONCLUSION: Low probability pulmonary embolism. Candido Patton MD Head CT 02/10/17 0000 Signed Impressions: Service Date/Time: Friday, February 10, 2017 23:51 - CONCLUSION: Negative noncontrast CT brain. Candido Patton MD Lumbar Puncture Fluoroscopy 02/01/17 0000 Signed Impressions: Service Date/Time: January 09:35 - CONCLUSION: Uncomplicated fluoroscopically guided lumbar puncture. CSF was clear. Nabeel Peralta MD Head Magnetic Resonance Angiography 01/27/17 0000 Signed Impressions: Service Date/Time: Friday, January 27, 2017 10:33 - CONCLUSION: No intracranial vascular abnormality is identified. There is no aneurysm visualized. Angelo Allen MD IVC Filter Placement X-Ray 01/25/17 0000 Signed Impressions: Service Date/Time: January 10:29 - CONCLUSION: Uncomplicated inferior vena cava filter placement as above. Yung Fowler MD Thoracic Spine MRI 01/24/17 Signed Impressions: Service Date/Time: Tuesday, January 24, 2017 22:29 - CONCLUSION: 1. Mild degenerative spondylosis most prominently at T11-L1 with slight effacement of the anterior thecal sac and left lateral recess. No significant neural foraminal stenosis. 2. No acute fracture. Juan Bhakta MD Lumbar Spine MRI 01/23/17 Signed Impressions: Service Date/Time: Monday, January 23, 2017 17:01 - CONCLUSION: 1. At L4-5 is a broad-based disc protrusion with severe central canal and lateral recess stenosis and flattening of the exiting right L4 nerve root. 2. L5-S1 there is a disc protrusion and moderate stenosis with flattening of the exiting L5 nerve roots bilaterally. 3. At L3-4 there is a moderate to severe central stenosis and lateral recess stenosis with mild foraminal stenosis. 4. No acute fracture or spondylolisthesis. Trace Holloway MD Lower Extremity Ultrasound 01/23/17 Signed Impressions: Service Date/Time: Monday, January 23, 2017 09:53 - CONCLUSION: Bilateral focal lower extremity DVT involving the posterior tibial veins. Angelo Garrido MD Cervical Spine MRI 01/23/17 Signed Impressions: Service Date/Time: Monday, January 23, 2017 17:01 - CONCLUSION: 1. Multilevel cervical spine degenerative changes as above. 2. Mild degrees of spinal stenosis at C3/C4-C6/C7. No cord compression or cord signal abnormality. 3. Age indeterminate left paracentral/foraminal disc protrusion at C6/C7. 4. Multilevel foraminal stenosis, most severe on the left at C6/C7. Please see individual levels above. 5. No fracture or subluxation of the cervical spine. Angelo Garrido MD Brain MRI 01/23/17 Signed Impressions: Service Date/Time: Monday, January 23, 2017 17:01 - CONCLUSION: 1. No acute stroke or other acute intracranial abnormality demonstrated. 2. Moderate severity chronic white matter changes, nonspecific but most likely related to chronic small vessel disease. 3. Few scattered tiny lacunar infarcts of the brainstem. 4. Given the findings are not entirely specific, clinical evaluation for possible multiple sclerosis recommended. Angelo Garrido MD Knee X-Ray 01/22/172053 Signed Impressions: Service Date/Time: Sunday, January 22, 2017 21:17 - CONCLUSION: 1. Evidence of moderate to large joint effusion. 2. No acute fracture or malalignment. 3. Mild 3 compartment osteoarthritic change. Benjamin Person MD Hip and Pelvis X-Ray 01/22/[id number] Signed Impressions: Service Date/Time: Sunday, January 22, 2017 21:10 - CONCLUSION: 1. Mild to moderate degenerative change of both hips with no acute fracture or malalignment. There is flattening and remodeling of the right humeral head. Benjamin Person MD Procedures 01/25/2017- Retrievable IVC Filter placement 01/26/17-lumbar puncture with fluoroscopy-by interventional radiology 02/01/17- lumbar puncture fluoroscopy by interventional radiology 02/10/17- Endotracheal Intubation 02/10/17-left IJ central venous line placed 02/10/17-left femoral arterial line placed 02/11/17-Diagnostic and therapeutic bronchoscopy with bronchoalveolar lavage 02/11/17-Left upper extremity incision and debridement with excision of septic cephalic vein 02/13/17- Extubated 02/20/17- endotracheal intubation 02/20/17- Left subclavian central line placement 02/20/17-Right radial A-line placement 02/22/17-EGD/colonoscopy 02/28/17-right radial a line 02/28/17- Endotracheal intubation 02/28/17- right sided introducer catheter placement 02/28/17- Right IJ central line placement 02/28/17-Right chest tube placement 02/28/17- Embolization of inferior and superior sacral branches of right internal iliac artery 03/01/17- Hemodialysis access catheter 03/03/17-Right IJ central line placement 03/11/17-Extubated 03/13/17- Endotracheal intubation 03/14/17-Tracheostomy placement 03/15/17-PEG tube placement 04/13/17-thoracentesis right 600 cc removed 04/13/17-Tracheostomy up-sized to #8 [place] 04/26/17 Central line placement . Assessment and Plan Disease Oriented Problem List: (1) Acute respiratory failure (2) Septic shock (3) Aspiration pneumonia (4) Acute renal failure (5) CKD (chronic kidney disease) stage 3, GFR 30-59 ml/min (6) Cardiomyopathy (7) DVT of lower extremity, bilateral (8) Thrombophlebitis arm (9) Diabetes mellitus (10) Gout (11) HTN (hypertension) (12) Hyperlipidemia Symptom Scale: (1) Shortness of breath 0-10 Scale: Unable to quantify Comment: Trach, Back on mechanical ventilation 04/26/17 . . (2) Debility 0-10 Scale: Unable to quantify Comment: Progressive. . (3) Pain 0-10 Scale: Unable to quantify Comment: History of falls, gout, arthritis, and currently bedbound. . Pertinent Non-Medical Issues Psychosocial:Patient was born and raised in [place], [place]. Patient was once for 20 years, now and has 2 adult sons. 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 He recently resigned due to failing health. Spiritual: No oriental orthodox affiliation Legal: Per [place] statutes, in the absence of written advanced directives healthcare proxy decision making falls to the patient's 2 adult children. Patient's son (Davie) lives locally and wishes to participate in the role of the healthcare proxy decision maker. Palliative care has attempted to contact Arnel, has not call back. Patient`s sister Deb and patients brother verbalized that they have been updating Arnel on patient`s medical status. Ethical issues impacting care: No known ethical issues impacting care at this time. . Important Contacts Son-Davie Kerr - Son-Arnel Kerr- -cell -home Sister-Deb Curry . Prognosis Mr Kerr is a 62 years old male with a past medical history of hypertension, asthma, diabetes, hyperlipidemia, chronic kidney disease and gout. Patient presented to the ED on 01/22/17 complaining of bilateral knee and right arm pain after a mechanical fall 4 or 5 days prior to coming to the ER. Clinical course complicated with increased weakness leading to numerous diagnostic work ups for possible transverse myelitis, DVTs, retroperitoneal hematoma, aspiration pneumonia, intubation x 4 times, septic and hemorrhagic shock requiring support with pressors and multiple pRBC, FFP transfusions as well as platelets and cryo , renal failure requiring hemodialysis and sacral wound Given ongoing comorbidities, and prolonged hospitalization, patient remains at risk for further complications, deterioration and decline. Code Status: Alternative Code (Intubation only ) Plan * Legal decision maker: Patient is incapacitated to make his own decisions, will not regain capacity. According to [place] statutes, health care proxy decision making falls to majority of adult children, he as 2 sons Davie and Arnel. Arnel has opted out of decision making, * Intubation Only * Goals: Spoke with son, Davie via phone. He verbalized 'patient would not want to like this.' He also states "my dad taught me to never give up." When ' its your time, its your time.' After lengthy conversation he elects alternate CODE: Intubation Only. He says he is not ready to make other decisions until after he has time to speak with family. We agreed to talk again on 05/09/17 for further clarification of goals. My cell number was provided should he have questions in the meantime. SYMPTOMS: * Shortness of breath: Multifactorial. Patient has had aspiration pneumonia. Patient has been intubated 4 times this hospitalization. Patient has a tracheostomy. On duonebs. Patient is also on Hydrocortisone 50mg q 6 hours. Training And Development Assistant following. Trach up-sized to #8. Patient is s/p CT guided thoracentesis 04/13/17. Tobramycin nebs ordered. Patient placed back on mechanical ventilation, was hypoxic 04/26/17. * Pain: Patient presented initially complaining of pain to right wrist and bilateral knees after a mechanical fall. Patient has a history of gout, arthritis, multiple falls and is currently bedbound. Patient on Oxycodone 5mg q 4 hours ATC. Patient on Hydrocortisone. * Debility: Progressive. Patient has had decline in his health for the past 4 months, including progressively increased weakness and difficulty ambulating and prolonged hospitalization with multiple setbacks. Patient remains at high risk for further physical deconditioning and debility. * Palliative care will continue to follow the patient during hospital course as condition evolves, to assist patient/decision-maker with understanding of their medical conditions, weighing benefits/burdens of treatment options, for clarification of goals of treatment. Additionally will assist with any symptoms of palliative concern. . Attestation To help prompt me to consider important information that might be impacting today's encounter and assessment, information from prior notes written by myself or my colleagues may have been "brought forward" into today's note. My signature on this note, however, is an attestation that I personally performed the exam, history, and/or decision-making noted today, and, unless otherwise indicated, the interactions with patient, family, and staff as well as the review of records all occurred today. I also attest that the listed assessment and stated plan reflect my best clinical judgment today based on the combination of historical information, prior notes, and today's exam/ interactions. When time spent is documented, it refers only to time spent today by the signer, or if indicated, combined time spent today by collaborating physician/nurse practitioner. Veronica Marie May 07, 2017 16:31
--- NOTE | 2017-05-07 17:19 | HHI.NPPN ---
Subjective History of Present Illness 61-year-old with history of urinary stone patient again got unstable has recurrent bouts of ICU admission requiring ventilation and respiratory care started having scrotal swelling and acute renal failure again, he had mild hyperkalemia and this was treated I have been reconsulted again Additional Remarks Patient had trach on vent, not in distress, remain unresponsive, clinically same. Review of Systems General Constitutional: Fatigue Objective Data Data Vital Signs Date Time Temp Pulse Resp B/P (MAP) Pulse Ox O2 Delivery O2 Flow Rate FiO2 05/07/17 16:00 50 05/07/17 14:31 99 45 05/07/17 14:00 72 05/07/17 12:00 97.6 83 13 134/74 (94) 99 05/07/17 12:00 50 05/07/17 12:00 83 05/07/17 11:20 96 45 05/07/17 11:05 17 05/07/17 10:00 86 05/07/17 08:00 91 05/07/17 08:00 50 05/07/17 08:00 98.7 91 17 126/61 (82) 96 05/07/17 07:55 99 45 05/07/17 07:25 135/64 05/07/17 06:08 141/64 05/07/17 06:00 114 05/07/17 04:40 98 50 05/07/17 04:00 99.6 105 25 136/63 (87) 98 05/07/17 04:00 45 05/07/17 04:00 105 05/07/17 03:46 104 142/63 05/07/17 02:00 104 05/07/17 01:07 100 50 05/07/17 00:00 50 05/07/17 00:00 105 05/07/17 00:00 99.5 105 21 145/66 (92) 99 05/06/17 22:36 100 50 05/06/17 22:00 104 05/06/17 20:30 129/57 05/06/17 20:00 50 05/06/17 20:00 104 05/06/17 20:00 100.7 104 20 135/63 (87) 100 05/06/17 19:40 100 50 05/06/17 18:00 102 -: 05/07/17 0341 05/07/17 0341 Physical Exam General Appearance: Pale Eyes Eye Exam: Pupils Equal Throat Throat Exam: Oral Mucosa [place] & Moist Neck Neck Exam: Neck Supple Pulmonary Resp Exam: Clear Bilaterally Cardiology CV Exam: Normal Sinus Rhythm Gastrointestinal/Abdomen GI Exam: Non-Tender, Distended Genitourinary Exam: Flank Non-Tender (scrotal edema) Extremeties Extremities Exam: Moderate Edema, Pitting Edema Neurologic Neuro Exam: Awake Assessment/Plan Problem List: (1) Acute renal failure ICD Codes: N17.9 - Acute kidney failure, unspecified Status: Acute Plan: Patient with pneumonia as, sepsis, acute renal failure Had pneumonia, developed sepsis with ARF again creatinine declined slightly post hydration he also had retroperitoneal bleed Pseudomonas in sputum, with colonized airway 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 Patient had been on dialysis earlier in hospitalization. He again has prerenal azotemia and respiratory failure, we will try albumin with Lasix again ON Lasix 20 mg IV every 12 follow kidney functions non oliguric ATN from sepsis K low replaced. He has multiple infections and pneumonia. Patient has low BP, give one dose of IV Albumin. Creatinine continue to increase. Urine out put is low. Possible Dialysis, Consider Hospice. (2) CKD (chronic kidney disease) stage 3, GFR 30-59 ml/min ICD Codes: N18.3 - Chronic kidney disease, stage 3 (moderate) Status: Chronic Plan: Ultrasound revealed chronic kidney disease there is no kidney stones (3) Diabetes ICD Codes: E11.9 - Type 2 diabetes mellitus without complications Plan: Continue to monitor (4) Distal end of ulna fracture, closed ICD Codes: S52.609A - Unspecified fracture of lower end of unspecified ulna, initial encounter for closed fracture Status: Acute Plan: Orthopedic is following Problem Qualifiers (1) Acute renal failure: Qualified Codes: N17.9 - Acute kidney failure, unspecified Aicha Leonard MD May 07, 2017 17:19
[2017-05-07] MEDS: ATORVASTATIN 10 MG TAB PO SCH (21:00)
[2017-05-08] VITALS (28 sets, daily range): BP systolic 122–165; BP diastolic 60–85; PULSE 65–83; RESP 8–25; TEMP 97.2–98.6; O2SAT 97–100
[2017-05-08] MEDS: oxyCODONE HCL ORAL CONC 5 MG/0.25 ML SYRINGE PO SCH ×6 (02:03→21:42)
[2017-05-08] MEDS: HYDROCORTISONE SOD SUCCINATE 100 MG VIAL IV PUSH SCH ×4 (03:43→21:43)
[2017-05-08] MEDS: ALBUMIN 25% INJ 100 ML IV SCH ×2 (03:43→16:23)
[2017-05-08] MEDS: FREE WATER G-TUBE SCH ×5 (03:43→23:39)
[2017-05-08] MEDS: INSULIN ASPART SUPPLEMENTAL SCALE SQ SCH (05:47)
[2017-05-08 07:07] LABS: HEMATOCRIT 27.1 % (39.0-51.0); MEAN CELL VOLUME 86.8 FL (80.0-100.0); MEAN CORPUSCULAR HEMOGLOBIN 27.7 PG (27.0-34.0); MEAN CORPUSCULAR HGB CONC 31.9 % (32.0-36.0); PLATELET COUNT 216 TH/MM3 (150-450); RED BLOOD COUNT 3.12 MIL/MM3 (4.50-5.90); RED CELL DISTRIBUTION WIDTH 17.3 % (11.6-17.2); REVIEW FLAG FINAL; WHITE BLOOD COUNT 26.6 TH/MM3 (4.0-11.0)
[2017-05-08 07:23] LABS: BICARBONATE 21.7 MEQ/L (21.0-32.0); POTASSIUM 3.5 MEQ/L (3.5-5.1)
[2017-05-08] MEDS: CHLORHEXIDINE 0.12% (ORAL KIT) 15 ML CUP MT SCH ×2 (08:00→21:42)
[2017-05-08] MEDS: TAMSULOSIN HCL 0.4 MG CAP PO SCH ×2 (09:00→21:00)
[2017-05-08] MEDS: SODIUM CHLORIDE 0.9% FLUSH 10 ML FLUSH IV FLUSH SCH ×3 (09:21→21:44)
[2017-05-08] MEDS: LACTOBACILLUS ACIDOPHILUS TAB PO SCH ×3 (09:23→17:50)
[2017-05-08] MEDS: CHOLESTYRAMINE 4 GM PACKET G-TUBE SCH ×2 (09:23→21:42)
[2017-05-08] MEDS: QUEtiapine FUMARATE 25 MG TAB PO SCH (09:24)
[2017-05-08] MEDS: LANSOPRAZOLE SOLUTAB 30 MG TAB NG SCH ×2 (09:24→21:42)
[2017-05-08] MEDS: COLLAGENASE OINT 30 GM TUBE TOPICAL SCH (09:25)
--- NOTE | 2017-05-08 11:44 | PD.WCN.NOT ---
Wound Consult Description: Follow up for stage 4 pressure injury on sacrococcygeal area, bilateral buttocks and unstageable wounds to R lateral lower leg Communicated with: ROHINI Dumont, Doctor Nina and Doctor Rivas Recommendation: 1.Please follow orders written by Doctor Nina Additional Information: Patient seen on 5th floor [facility] for follow up of Sacral wound around 1100. Patient turned with maximum assist to L side with the assistance of senior writer, and Barbara VALENCIA. Doctor Nina in room during wound assessment. Removed dressing in place reveal Sacrococcygeal and bilateral buttocks wound. Dignishield in place with some leakage.Irrigated dignishield with 60 ml of water.Current treatment for wound is Cleanse wound to sacral area with normal saline and pat dry . Apply claire thick santyl ointment to wound bed and cover with Maxorb II. Cover entire wound area with ABD pads, secured with tape. Please apply skin prep to periwound before applying tape. . Wound bed presents with ~50% yellow / black necrotic tissue that is loosely adherent, ~20% vascular red non granulations tissue,~20% granulation tissue and ~10% facia. Wound has moderate sero-sanguinous drainage has a mild odor.Diffuse small unroofed bullae can be seen to bilateral flank areas. and scattered around periwound, possibly from use of plastic tape. Doctor Nina removed some necrotic tissue at bedside with curette.Wound measures 15cm x ~10cm x ~3.1cm slough. Wound margins are unattached from 11 to 3 o'clock. undermining is present beween 12 and 3 o'clock deepest at 1 o'clock measuring ~2cm. Wound has a round shape and covers the sacrum, coccyx, and bilateral buttocks. Cleansed wound with normal saline and pat dry.Applied 0.25% dakins solution to wound bed and let soak with gauze pads for 10 minutes. Applied Santyl ointment claire thickness top Maxorb II (calcium alginate)to wound bed. Covered entire wound with two ABD pads, secured with Medfix. Sprayed skin prep to periwound and before applying tape.Patient is laying on 48 inch wave bed, with ultra sorb pads underneath patient in a staggered fashion. Patient positioned to R side with pillow in place for support. With the assistance of Julia [facility], senior writer and [facility]. Doctor Maico to write orders for wound care as noted based on presentation of sacral wound today. Assessed R leg wounds Removed dressings in place that were last changed on to reveal full thickness wounds R lateral leg and R lateral ankle.R lateral ankle wound measures 3cm x 1 cm x ~0.5cm. Wound bed presents with ~30% tendon, ~ 20% slough and ~50% pink tissue. Wound has minimal serous drainage without odor. R lateral leg wound measures 10cm x 2cm x eschar. Wound has moderate serous drainage that is without odor.Cleansed wounds to R lateral leg and R lateral ankle with normal saline and applied Santyl claire thickness to wound bed and covered wounds with bordered gauze dressing Diffuse unroofed bullae on back are noted with improvement since previous assessment. Ashley Fuller [facility] May 08, 2017 11:44
[2017-05-08] MEDS ORDERED: DEXTROSE 50% IN WATER 50 ML VIAL(D50) IV PUSH PRN (11:45)
--- NOTE | 2017-05-08 11:46 | PD.WOU.PN ---
Patient Intake Chief Complaint Tissue Injury of the sacrum and legs, heels Consult Requested by Primary Care Physician Unknown History of Present Illness Wound care team rounds for patient - week two- Coded Allergies: levofloxacin (Verified Allergy, Severe, 01/22/17) Vital Signs Date Time Temp Pulse Resp B/P (MAP) Pulse Ox O2 Delivery O2 Flow Rate FiO2 05/08/17 09:11 97 45 05/08/17 07:45 98 45 05/08/17 06:00 67 05/08/17 04:00 65 05/08/17 04:00 98.6 65 18 128/68 (88) 99 05/08/17 04:00 45 05/08/17 02:00 66 05/08/17 01:04 98 45 05/08/17 00:00 69 05/08/17 00:00 98.6 69 15 130/60 (83) 99 05/08/17 00:00 45 05/07/17 23:00 98 45 05/07/17 22:00 68 05/07/17 20:30 99 45 05/07/17 20:00 69 05/07/17 20:00 98.5 69 14 124/68 (86) 92 05/07/17 20:00 45 05/07/17 18:00 95 05/07/17 16:00 96.2 99 17 106/64 (78) 98 05/07/17 16:00 50 05/07/17 16:00 99 05/07/17 14:36 14 05/07/17 14:31 99 45 05/07/17 14:00 72 05/07/17 12:00 97.6 83 13 134/74 (94) 99 05/07/17 12:00 50 05/07/17 12:00 83 Review of Systems Integumentary: COMPLAINS OF: Slow to heal after cuts Wound Assessment Arrived: Stretcher (On wave bed) Vascular Assessment R Dorsails Pedis: Palpable L Dorsails Pedis: Palpable R Posterior Tibial: Palpable L Posterior Tibial: Palpable Temperature of Left Extremity: Warm Color of Left Extremity: WNL Sensation of Left Extremity: Present Temperature of Right Extremity: Warm Color of Right Extremity: WNL Sensation of Right Extremity: Present Wound Information - Wound One 05/01/17: Wound dimensions this week was 96zld64.6cm x eschar until after debridement where the depth was approximately 1cm. There was undermining from 12-3 oclock with deepest depth at 1oclock of 2cm. The wound was sharply debrided to subcutaneous tissue to remove unstable eschar and slough was also sharply debrided with some fascia. Wound was then cleaned with normal saline and dressed with skin prep, santyl and moistened gauze, abd pads and tape. Wound Location: sacrum, coccyx and bilateral buttocks Wound Length: 15cm Wound Width: 10. Wound Depth: 3.1cm Photo Taken: No Exudate: Moderate Exudate Type: Green, Yellow Debridement: Yes Fibrin Amount: Mild Granulation Tissue Color: Red Granulation Tissue Texture: Firm Exposed: Muscle Eschar: Yes (very small stable eschar) Dressing Notes: Santyl.moistened gauze, maxorb and abd pads. Wound Two This was difficult to measure and are deroofed bullae. This was cleaned with normal saline and applied single layer Xeroform gauze dressing and covered with dry cover dressing. Patient tolerated this. Wound Location: Back Wound Length: Healed Wound Width: Healed Wound Depth: Healed Photo Taken: No Exudate: None Debridement: No Fibrin Amount: None Wound Three 05/01/2017: Wound dimensions this week are 6 cm x 3 cm by 0.2cm of slough. Wound sharply debrided to subcutaneous tissue until a good bleeding this was obtained. Cleaned with normal saline and Santyl medical thickness was added to wound bed and covered wounds with bordered gauze dressing. Wound Location: Right lateral leg Wound Length: 10cm Wound Width: 2cm Wound Depth: eschar Photo Taken: No Exudate: None Debridement: No Fibrin Amount: None Granulation Tissue Color: None Granulation Tissue Texture: N/A Exposed: No exposed bone, muscle, tendon Eschar: No Odor: No Periwound Appearance: FINDINGS: Normal Dressing Notes: Santyl moisrened gauze and bordered gauze. Wound Four Right lateral ankle Lab and Radiology Results Radiology Last Impressions Chest X-Ray 05/03/17 0000 Signed Impressions: Service Date/Time: , May 03, 2017 10:19 - CONCLUSION: 1. Poor lung aeration 2. Interstitial vascular prominence 3. Significant left lung opacity characteristic of moderate pleural effusion and underlying basilar air space disease. Lenny Ware MD Thoracentesis 04/13/17 1054 Signed Impressions: Service Date/Time: Thursday, April 13, 2017 15:26 - CONCLUSION: Uncomplicated CT-guided right thoracentesis. Candido Mendoza Jr., MD Chest CT 04/12/17 1558 Signed Impressions: Service Date/Time: March 17:51 - CONCLUSION: 1. Slight increase in size of bilateral effusions and basilar atelectasis, left greater than right compared with February 27. Tracheostomy in good position. Trace Holloway MD Renal Ultrasound 04/02/17 0000 Signed Impressions: Service Date/Time: Sunday, April 02, 2017 16:59 - CONCLUSION: Limited exam with the left kidney being unable to be evaluated in the bladder not distended. There do appear to be multiple shadowing stones at the right kidney without hydronephrosis. Angelo Manzo MD Wrist X-Ray 03/27/17 0000 Signed Impressions: Service Date/Time: Monday, March 27, 2017 13:21 - CONCLUSION: 1. No acute fracture is identified. A portion of the previously documented distal ulna fracture remains visualized. 2. 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 Angelo Allen MD Aortography 02/28/17 0000 Signed Impressions: Service Date/Time: Tuesday, February 28, 2017 08:01 - CONCLUSION: 1. Active hemorrhage from distal right lateral sacral and iliolumbar branches successfully coil and Gelfoam embolized, as above. Juan Bhakta MD Abdomen/Pelvis CT 02/28/17 0000 Signed Impressions: Service Date/Time: Tuesday, February 28, 2017 06:51 - CONCLUSION: 1. The right retroperitoneal hematoma has increased in size, as above. There are 2 serpiginous arterially enhancing structures visualized, one in the right psoas muscle and another extending into the hematoma at the right iliac fossa. These could represent sites of continued active bleeding. 2. Stable moderate size left and small right pleural effusion with associated compressive atelectasis. 3. Stable small volume of free fluid in the abdomen and pelvis. There is also anasarca. The findings concerning the retroperitoneal hematoma were discussed with Dr. Aguiar via telephone at approximately 7: 10 AM on 02/28/2017. Angelo Allen MD Abdomen X-Ray 10/9/17 0000 Signed Impressions: Service Date/Time: Sunday, February 26, 2017 14:52 - CONCLUSION: 1. Nonobstructive bowel gas pattern. Juan Bhakta MD Upper Extremity Ultrasound 02/10/17 Signed Impressions: Service Date/Time: Friday, February 10, 2017 18:46 - CONCLUSION: Occlusive thrombus in the cephalic and basilic veins. Benjamin Person MD Lung Scan-V Nuclear Medicine 02/10/17 Signed Impressions: Service Date/Time: Friday, February 10, 2017 22:17 - CONCLUSION: Low probability pulmonary embolism. Candido Patton MD Head CT 02/10/17 Signed Impressions: Service Date/Time: Friday, February 10, 2017 23:51 - CONCLUSION: Negative noncontrast CT brain. Candido Patton MD Lumbar Puncture Fluoroscopy 02/01/17 Signed Impressions: Service Date/Time: January 09:35 - CONCLUSION: Uncomplicated fluoroscopically guided lumbar puncture. CSF was clear. Nabeel Peralta MD Head Magnetic Resonance Angiography 01/27/17 Signed Impressions: Service Date/Time: Friday, January 27, 2017 10:33 - CONCLUSION: No intracranial vascular abnormality is identified. There is no aneurysm visualized. Aneglo Allen MD IVC Filter Placement X-Ray 01/25/17 Signed Impressions: Service Date/Time: January 10:29 - CONCLUSION: Uncomplicated inferior vena cava filter placement as above. Yung Fowler MD Thoracic Spine MRI 01/24/17 Signed Impressions: Service Date/Time: Tuesday, January 24, 2017 22:29 - CONCLUSION: 1. Mild degenerative spondylosis most prominently at T11-L1 with slight effacement of the anterior thecal sac and left lateral recess. No significant neural foraminal stenosis. 2. No acute fracture. Juan Bhakta MD Lumbar Spine MRI 01/23/17 Signed Impressions: Service Date/Time: Monday, January 23, 2017 17:01 - CONCLUSION: 1. At L4-5 is a broad-based disc protrusion with severe central canal and lateral recess stenosis and flattening of the exiting right L4 nerve root. 2. L5-S1 there is a disc protrusion and moderate stenosis with flattening of the exiting L5 nerve roots bilaterally. 3. At L3-4 there is a moderate to severe central stenosis and lateral recess stenosis with mild foraminal stenosis. 4. No acute fracture or spondylolisthesis. Trace Holloway MD Lower Extremity Ultrasound 01/23/17 Signed Impressions: Service Date/Time: Monday, January 23, 2017 09:53 - CONCLUSION: Bilateral focal lower extremity DVT involving the posterior tibial veins. Angelo Garrido MD Cervical Spine MRI 01/23/17 Signed Impressions: Service Date/Time: Monday, January 23, 2017 17:01 - CONCLUSION: 1. Multilevel cervical spine degenerative changes as above. 2. Mild degrees of spinal stenosis at C3/C4-C6/C7. No cord compression or cord signal abnormality. 3. Age indeterminate left paracentral/foraminal disc protrusion at C6/C7. 4. Multilevel foraminal stenosis, most severe on the left at C6/C7. Please see individual levels above. 5. No fracture or subluxation of the cervical spine. Angelo Garrido MD Brain MRI 01/23/17 Signed Impressions: Service Date/Time: Monday, January 23, 2017 17:01 - CONCLUSION: 1. No acute stroke or other acute intracranial abnormality demonstrated. 2. Moderate severity chronic white matter changes, nonspecific but most likely related to chronic small vessel disease. 3. Few scattered tiny lacunar infarcts of the brainstem. 4. Given the findings are not entirely specific, clinical evaluation for possible multiple sclerosis recommended. Angelo Garrido MD Knee X-Ray 01/22/[id number] Signed Impressions: Service Date/Time: Sunday, January 22, 2017 21:17 - CONCLUSION: 1. Evidence of moderate to large joint effusion. 2. No acute fracture or malalignment. 3. Mild 3 compartment osteoarthritic change. Benjamin Person MD Hip and Pelvis X-Ray 01/22/[id number] Signed Impressions: Service Date/Time: Sunday, January 22, 2017 21:10 - CONCLUSION: 1. Mild to moderate degenerative change of both hips with no acute fracture or malalignment. There is flattening and remodeling of the right humeral head. 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 Wound was then cleaned with normal saline and dressed with santyl and moistened gauze , abd pads and tape. Quit just prior to his wound healing is his current medical state as well as the fact that he is on steroids which inhibits wound healing. We'll continue to follow with wound care team. (2) Ulcer of right ankle (3) Ulcer of right leg Status: Chronic Plan: Wound sharply debrided to subcutaneous tissue until a good bleeding this was obtained. Cleaned with normal saline and Santyl medical thickness was added to wound bed and covered wounds with bordered gauze dressing. (4) Deep tissue injury Michelle Canada MD May 08, 2017 11:46
[2017-05-08] MEDS: INSULIN NovoLIN REGULAR SUPPLEMENTAL SCALE SQ SCH ×4 (13:02→23:50)
[2017-05-08] MEDS: FLUCONAZOLE 200 MG TAB PO SCH (13:08)
--- NOTE | 2017-05-08 14:20 | HHI.IDPN ---
Subjective Subjective Remarks Patient is a 62-year-old male, admitted to the hospital for evaluation of pain in his right wrist. He gave a history of falling about a week ago and apparently had immediate pain in the right wrist. He did not seek any medical attention initially because reportedly he was very busy. He eventually presented, and he was found to have a distal ulnar fracture on plain films. He also had some redness and swelling. Orthopedics saw the patient, and was being treated conservatively with the splint. During this hospitalization also he started complaining of generalized weakness but more so in his lower extremity than his upper extremity. He had swelling in both lower extremity which revealed evidence of DVT in the posterior tibial veins. Neurology had seen the patient and he underwent lumbar puncture which apparently was traumatic. Patient was therefore not given anticoagulation because of the traumatic LP, and he underwent placement of an IVC filter on January 25. Patient had another lumbar puncture on February 01. He was felt to have transverse myelitis, and he was given high-dose IV Solu-Medrol from January 27 to February 02. There was apparently some improvement in his weakness. The imaging studies done for his weakness showed some spinal stenosis, and neurosurgery was consult that and recommended that there was no surgical intervention to be done. Patient has been stabilizing, but last night apparently deteriorated, and he ended up getting intubated, and had significant hypotension requiring pressors. There was also an ultrasound done of his left upper extremity which showed DVT, and there was evidence of superior 2 thrombophlebitis. Vascular surgery was consult to it and he had IND on his left upper extremity. Patient has had some fevers since yesterday. 2 blood cultures were done yesterday and they're now reported as growing gram-positive cocci in [place] in clusters. He is currently sedated and intubated. He is on Levophed and vasopressin. A central line was placed as well as a femoral a line. He apparently had an IV in his left upper extremity and that was removed yesterday. Patient also has history of chronic kidney disease, and nephrology evaluated the patient. He was just being monitored for his renal insufficiency. Reconsulted 04/12 for low grade fever, leucocytosis, worsening CXR concern for new pneumonia. Notes reviewed Temps better today BP ok Remains on the vent Wound care team notes reviewed WBC lower Creatinine rising UO decreasing Antibiotics Current Medications Medications (Trade) Dose Ordered Sig/Rosalia Route Start Time Stop Time Status Last Admin (NS Flush) 2 ml BID IV FLUSH 01/23/17 09:00 05/08/17 09:21 (Zofran Inj) 4 mg Q6H PRN IVP 01/23/17 00:30 02/26/17 17:23 (Dulcolax Supp) 10 mg DAILY PRN RECTAL 01/23/17 00:30 (Lipitor) 10 mg HS PO 01/24/17 21:00 Future hold 05/07/17 21:00 (Glucagon Inj) 1 mg UNSCH PRN OTHER 02/11/17 05:45 02/18/17 18:53 (Flomax) 0.4 mg Q12HR PO 02/17/17 15:00 Future hold 05/07/17 09:26 (Lactinex) 1 tab TID PO 02/19/17 13:00 05/08/17 13:02 (D50w (Vial) Inj) 25 ml UNSCH PRN IV PUSH 02/20/17 12:45 03/27/17 13:20 (Peridex 0.12% Liq) 15 ml BID@08,20 MT 02/28/17 08:00 05/08/17 08:00 (NS Flush) UNSCH PRN IV FLUSH 03/01/17 13:00 (Heparin Inj) UNSCH PRN IV FLUSH 03/01/17 13:00 (NS Flush) DAILY IV FLUSH 03/04/17 09:00 05/08/17 09:22 (Prevacid Odt) 30 mg BID NG 03/07/17 21:00 05/08/17 09:24 (Tylenol 650 Mg/ 20 ml Liq) 650 mg Q6H PRN PO 03/09/17 10:15 04/30/17 12:01 (Tenormin) 25 mg Q12HR PO 03/12/17 10:00 Future Hold 04/18/17 10:09 (Epogen Inj) 10,000 units UNSCH PRN IV PUSH 03/17/17 11:30 03/22/17 10:52 (Nitroglycerin 2% Oint) 2 inch Q6H PRN TOPICAL 03/23/17 14:00 03/29/17 01:20 (Norvasc) 10 mg DAILY PO 03/28/17 09:00 Future Hold 04/19/17 08:16 (Roxicodone Intensol Liq) 5 mg Q4H PO 04/01/17 18:00 05/08/17 13:09 (Xanax) 0.125 mg Q6H PRN PO 04/03/17 22:30 04/25/17 14:27 (Pill Splitter) 1 ea UNSCH PRN OTHER 04/03/17 22:45 (Levsin Liq) 0.125 mg Q4H PRN G-TUBE 04/06/17 15:00 04/12/17 10:09 (Questran 4 Gm Pkt) 4 gm Q12HR G-TUBE 04/08/17 21:00 05/08/17 09:23 (SEROquel) 25 mg DAILY PO 04/09/17 09:00 05/08/17 09:24 (Santyl Oint) 1 applic DAILY TOPICAL 04/10/17 09:00 05/08/17 09:25 (Duoneb Neb) 1 ampule Q2HR NEB PRN NEB 04/12/17 17:00 05/05/17 15:57 (Lopressor Inj) 2.5 mg Q6H PRN IV PUSH 04/23/17 01:15 Future Hold 04/23/17 09:36 Albumin Human 100 ml @ 60 mls/hr Q12H IV 04/30/17 17:00 05/08/17 03:43 (Lopressor) 25 mg Q12HR PO 05/02/17 10:45 Future Hold 05/05/17 08:15 (Free Water) 300 ml Q4HR G-TUBE 05/05/17 16:00 05/08/17 12:00 (SoluCORTEF INJ) 50 mg Q6H IV PUSH 05/06/17 11:00 05/08/17 13:01 (Diflucan) 200 mg DAILY PO 05/08/17 11:00 05/08/17 13:08 (NovoLIN R SUPPLEMENTAL SCALE) 1 Q4HR SQ 05/08/17 12:00 05/08/17 13:02 Lines Central line - 04/27 Past Medical History Reviewed Allergies: Coded Allergies: levofloxacin (Verified Allergy, Severe, 01/22/17) Objective . Vital Signs Date Time Temp Pulse Resp B/P (MAP) Pulse Ox O2 Delivery O2 Flow Rate FiO2 05/08/17 13:43 20 05/08/17 11:46 45 05/08/17 11:42 100 45 05/08/17 09:11 97 45 05/08/17 07:45 98 45 05/08/17 06:00 67 05/08/17 04:00 65 05/08/17 04:00 98.6 65 18 128/68 (88) 99 05/08/17 04:00 45 05/08/17 02:00 66 05/08/17 01:04 98 45 05/08/17 00:00 69 05/08/17 00:00 98.6 69 15 130/60 (83) 99 05/08/17 00:00 45 05/07/17 23:00 98 45 05/07/17 22:00 68 05/07/17 20:30 99 45 05/07/17 20:00 69 05/07/17 20:00 98.5 69 14 124/68 (86) 92 05/07/17 20:00 45 05/07/17 18:00 95 05/07/17 16:00 96.2 99 17 106/64 (78) 98 05/07/17 16:00 50 05/07/17 16:00 99 05/07/17 14:31 99 45 . Laboratory Tests Test 05/07/17 03:41 05/08/17 05:50 White Blood Count 32.1 TH/MM3 26.6 TH/MM3 Red Blood Count 3.28 MIL/MM3 3.12 MIL/MM3 Hemoglobin 9.1 GM/DL 8.6 GM/DL Hematocrit 28.1 % 27.1 % Mean Corpuscular Volume 85.8 FL 86.8 FL Mean Corpuscular Hemoglobin 27.7 PG 27.7 PG Mean Corpuscular Hemoglobin Concent 32.3 % 31.9 % Red Cell Distribution Width 16.9 % 17.3 % Platelet Count 265 TH/MM3 216 TH/MM3 Mean Platelet Volume 8.4 FL 8.3 FL Laboratory Tests Test 05/07/17 03:41 05/08/17 05:50 Blood Urea Nitrogen 71 MG/DL 87 MG/DL Creatinine 2.58 MG/DL 2.76 MG/DL Random Glucose 238 MG/DL 310 MG/DL Calcium Level 10.2 MG/DL 9.6 MG/DL Sodium Level 138 MEQ/L 136 MEQ/L Potassium Level 3.5 MEQ/L 3.5 MEQ/L Chloride Level 104 MEQ/L 102 MEQ/L Carbon Dioxide Level 21.5 MEQ/L 21.7 MEQ/L Anion Gap 13 MEQ/L 12 MEQ/L Estimat Glomerular Filtration Rate 25 ML/MIN 23 ML/MIN Microbiology Date/Time Source Procedure Growth Status 05/06/17 13:26 Blood Peripheral Aerobic Blood Culture - Preliminary NO GROWTH IN 2 DAYS Resulted 05/06/17 13:26 Blood Peripheral Anaerobic Blood Culture - Preliminary NO GROWTH IN 2 DAYS Resulted 05/06/17 13:16 Blood Peripheral Aerobic Blood Culture - Preliminary NO GROWTH IN 2 DAYS Resulted 05/06/17 13:16 Blood Peripheral Anaerobic Blood Culture - Preliminary NO GROWTH IN 2 DAYS Resulted 05/06/17 11:35 Sputum Endotracheal Gram Stain - Final Complete 05/06/17 11:35 Sputum Endotracheal Sputum Culture - Final RARE GROWTH NORMAL RESPIRATORY EARL Complete 05/06/17 13:00 Urine Catheterized Urine Urine Culture - Final Linda Glabrata Complete Imaging Chest X-Ray 05/03/17 0000 Signed Impressions: Service Date/Time: April 10:19 - CONCLUSION: 1. Poor lung aeration 2. Interstitial vascular prominence 3. Significant left lung opacity characteristic of moderate pleural effusion and underlying basilar air space disease. Lenny Ware MD Thoracentesis 04/13/17 1054 Signed Impressions: Service Date/Time: Thursday, April 13, 2017 15:26 - CONCLUSION: Uncomplicated CT-guided right thoracentesis. Candido Mendoza Jr., MD Chest CT 04/12/17 1558 Signed Impressions: Service Date/Time: March 17:51 - CONCLUSION: 1. Slight increase in size of bilateral effusions and basilar atelectasis, left greater than right compared with February 27. Tracheostomy in good position. Trace Holloway MD Renal Ultrasound 04/02/17 0000 Signed Impressions: Service Date/Time: Sunday, April 02, 2017 16:59 - CONCLUSION: Limited exam with the left kidney being unable to be evaluated in the bladder not distended. There do appear to be multiple shadowing stones at the right kidney without hydronephrosis. Angelo Manzo MD Wrist X-Ray 03/27/17 0000 Signed Impressions: Service Date/Time: Monday, March 27, 2017 13:21 - CONCLUSION: 1. No acute fracture is identified. A portion of the previously documented distal ulna fracture remains visualized. 2. 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 Angelo Allen MD Aortography 02/28/17 0000 Signed Impressions: Service Date/Time: Tuesday, February 28, 2017 08:01 - CONCLUSION: 1. Active hemorrhage from distal right lateral sacral and iliolumbar branches successfully coil and Gelfoam embolized, as above. Juan Bhakta MD Abdomen/Pelvis CT 02/28/17 0000 Signed Impressions: Service Date/Time: Tuesday, February 28, 2017 06:51 - CONCLUSION: 1. The right retroperitoneal hematoma has increased in size, as above. There are 2 serpiginous arterially enhancing structures visualized, one in the right psoas muscle and another extending into the hematoma at the right iliac fossa. These could represent sites of continued active bleeding. 2. Stable moderate size left and small right pleural effusion with associated compressive atelectasis. 3. Stable small volume of free fluid in the abdomen and pelvis. There is also anasarca. The findings concerning the retroperitoneal hematoma were discussed with Dr. Aguiar via telephone at approximately 7: 10 AM on 02/28/2017. Angelo Allen MD Abdomen X-Ray 02/26/17 0000 Signed Impressions: Service Date/Time: Sunday, February 26, 2017 14:52 - CONCLUSION: 1. Nonobstructive bowel gas pattern. Juan Bhakta MD Upper Extremity Ultrasound 02/10/17 0000 Signed Impressions: Service Date/Time: Friday, February 10, 2017 18:46 - CONCLUSION: Occlusive thrombus in the cephalic and basilic veins. Benjamin Person MD Lung Scan-V Nuclear Medicine 02/10/17 0000 Signed Impressions: Service Date/Time: Friday, February 10, 2017 22:17 - CONCLUSION: Low probability pulmonary embolism. Candido Patton MD Head CT 02/10/17 0000 Signed Impressions: Service Date/Time: Friday, February 10, 2017 23:51 - CONCLUSION: Negative noncontrast CT brain. Candido Patton MD Lumbar Puncture Fluoroscopy 02/01/17 0000 Signed Impressions: Service Date/Time: January 09:35 - CONCLUSION: Uncomplicated fluoroscopically guided lumbar puncture. CSF was clear. Nabeel Peralta MD Head Magnetic Resonance Angiography 01/27/17 Signed Impressions: Service Date/Time: Friday, January 27, 2017 10:33 - CONCLUSION: No intracranial vascular abnormality is identified. There is no aneurysm visualized. Angelo Allen MD IVC Filter Placement X-Ray 01/25/17 Signed Impressions: Service Date/Time: January 10:29 - CONCLUSION: Uncomplicated inferior vena cava filter placement as above. Yung Fowler MD Thoracic Spine MRI 01/24/17 Signed Impressions: Service Date/Time: Tuesday, January 24, 2017 22:29 - CONCLUSION: 1. Mild degenerative spondylosis most prominently at T11-L1 with slight effacement of the anterior thecal sac and left lateral recess. No significant neural foraminal stenosis. 2. No acute fracture. Juan Bhakta MD Lumbar Spine MRI 01/23/17 Signed Impressions: Service Date/Time: Monday, January 23, 2017 17:01 - CONCLUSION: 1. At L4-5 is a broad-based disc protrusion with severe central canal and lateral recess stenosis and flattening of the exiting right L4 nerve root. 2. L5-S1 there is a disc protrusion and moderate stenosis with flattening of the exiting L5 nerve roots bilaterally. 3. At L3-4 there is a moderate to severe central stenosis and lateral recess stenosis with mild foraminal stenosis. 4. No acute fracture or spondylolisthesis. Trace Holloway MD Lower Extremity Ultrasound 01/23/17 Signed Impressions: Service Date/Time: Monday, January 23, 2017 09:53 - CONCLUSION: Bilateral focal lower extremity DVT involving the posterior tibial veins. Angelo Garrido MD Cervical Spine MRI 01/23/17 Signed Impressions: Service Date/Time: Monday, January 23, 2017 17:01 - CONCLUSION: 1. Multilevel cervical spine degenerative changes as above. 2. Mild degrees of spinal stenosis at C3/C4-C6/C7. No cord compression or cord signal abnormality. 3. Age indeterminate left paracentral/foraminal disc protrusion at C6/C7. 4. Multilevel foraminal stenosis, most severe on the left at C6/C7. Please see individual levels above. 5. No fracture or subluxation of the cervical spine. Angelo Garrido MD Brain MRI 01/23/17 0000 Signed Impressions: Service Date/Time: Monday, January 23, 2017 17:01 - CONCLUSION: 1. No acute stroke or other acute intracranial abnormality demonstrated. 2. Moderate severity chronic white matter changes, nonspecific but most likely related to chronic small vessel disease. 3. Few scattered tiny lacunar infarcts of the brainstem. 4. Given the findings are not entirely specific, clinical evaluation for possible multiple sclerosis recommended. Angelo Garrido MD Knee X-Ray [id number]/22/[id number] Signed Impressions: Service Date/Time: Sunday, January 22, 2017 21:17 - CONCLUSION: 1. Evidence of moderate to large joint effusion. 2. No acute fracture or malalignment. 3. Mild 3 compartment osteoarthritic change. Benjamin Person MD Hip and Pelvis X-Ray [id number] Signed Impressions: Service Date/Time: Sunday, January 22, 2017 21:10 - CONCLUSION: 1. Mild to moderate degenerative change of both hips with no acute fracture or malalignment. There is flattening and remodeling of the right humeral head. Benjamin Person MD Physical Exam GENERAL: Looks comfortable on the vent. SKIN: Cool and dry. No generalized rash. Edematous in extremities. EYES: [place] conjunctiva. No petechia or hemorrhage. EARS, NOSE AND THROAT: Nose without bleeding or purulent nasal discharge. Dry oral mucosa NECK: Trach site ok. CARDIOVASCULAR: Regular rate and rhythm. Soft heart sounds. No murmurs RESPIRATORY: Coarse BS bilaterally, decreased at bases. ABDOMEN: Soft, not tender, distended, PEG site ok. No guarding rectal tube in place with small amount of liquid stool EXTREMITIES: No clubbing, cyanosis. Edema +++. Dressing on R leg wound with lots of drainage. Generalized anasarca. NEUROLOGICAL: sedated PSYCHIATRIC: unable to assess LINE: Lines with no evidence of infection Assessment & Plan Remarks IMPRESSION Recurrent respiratory failure, ?plugging, PNA - last CXR better New Sepsis (fever and leucocytosis), temps up again x 1, and WBC still elevated Aspiration Pneumonia in health care setting. Mucus plugs with atelectasis. Leucocytosis, persistent, up and down ESBL in urine in recent past. 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 PNA, ?plugging/atelctasis - MDR, I to Zerbaxa, has been tolerating T-piece - likely effusion adding to his respiratory problems, on top of his plugging /secretions Large R retroperitoneal bleed, S/P multiple transfusions and S/P coiling of bleeders Anemia, due to bleed, retroperitoneal MSSA sepsis, due to suppurative thrombophlebitis LUE, S/P I and D and excision of portion of cephalic vein - S/P Rx Respiratory failure, has had several intubations - reintubated again 02/28, extubated 03/11 - reintubated again - S/P trach 03/14 Rx 7 days high dose solumedrol for transverse myelitis Wu LE DVT has IVC filter placed 01/25 - ?hypercoagulable state Chronic kidney disease, worsening creatinine - shock and compression of ureter by hematoma Known DM, HTN Diarrhea, C.diff negative Renal insufficiency, worsening RECOMMENDATION Add Diflucan Follow new C/S Monitor progress Follow temps Consider reCT A/P - he had prior retroperitoneal hematoma and embolization - ?rebleed Weaning per [facility] Patient not improving, and has been deteriorating I will be OOT 05/09-05/14 Other ID MD covering in my absence Irene Edwards MD May 08, 2017 14:19
--- NOTE | 2017-05-08 17:00 | HHI.NPPN ---
Subjective History of Present Illness 61-year-old with history of urinary stone patient again got unstable has recurrent bouts of ICU admission requiring ventilation and respiratory care started having scrotal swelling and acute renal failure again, he had mild hyperkalemia and this was treated I have been reconsulted again Additional Remarks Patient had trach on vent, not in distress, remain unresponsive. Review of Systems General Constitutional: Fatigue Objective Data Data Vital Signs Date Time Temp Pulse Resp B/P (MAP) Pulse Ox O2 Delivery O2 Flow Rate FiO2 05/08/17 16:55 99 45 05/08/17 14:01 70 11 138/71 (93) 99 05/08/17 14:00 70 05/08/17 13:43 20 05/08/17 13:01 72 8 144/74 (97) 100 05/08/17 12:01 97.6 74 13 138/70 (92) 98 05/08/17 12:00 45 05/08/17 12:00 73 05/08/17 11:46 45 05/08/17 11:42 100 45 05/08/17 11:18 83 25 165/83 (110) 97 05/08/17 10:00 71 05/08/17 09:11 97 45 05/08/17 09:01 68 15 122/62 (82) 99 05/08/17 08:01 68 19 124/63 (83) 97 05/08/17 08:00 97.4 69 16 97 05/08/17 08:00 69 05/08/17 08:00 45 05/08/17 07:45 98 45 05/08/17 06:00 67 05/08/17 04:00 65 05/08/17 04:00 98.6 65 18 128/68 (88) 99 05/08/17 04:00 45 05/08/17 02:00 66 05/08/17 01:04 98 45 05/08/17 00:00 69 05/08/17 00:00 98.6 69 15 130/60 (83) 99 05/08/17 00:00 45 05/07/17 23:00 98 45 05/07/17 22:00 68 05/07/17 20:30 99 45 05/07/17 20:00 69 05/07/17 20:00 98.5 69 14 124/68 (86) 92 05/07/17 20:00 45 05/07/17 18:00 95 -: 05/08/17 0550 05/08/17 0550 Physical Exam General Appearance: Pale Eyes Eye Exam: Pupils Equal Throat Throat Exam: Oral Mucosa [place] & Moist Neck Neck Exam: Neck Supple Pulmonary Resp Exam: Clear Bilaterally Cardiology CV Exam: Normal Sinus Rhythm Gastrointestinal/Abdomen GI Exam: Non-Tender, Distended Genitourinary Exam: Flank Non-Tender (scrotal edema) Extremeties Extremities Exam: Moderate Edema, Pitting Edema Neurologic Neuro Exam: Awake Assessment/Plan Problem List: (1) Acute renal failure ICD Codes: N17.9 - Acute kidney failure, unspecified Status: Acute Plan: Patient with pneumonia as, sepsis, acute renal failure Had pneumonia, developed sepsis with ARF. 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 Patient had been on dialysis earlier in hospitalization. He again has prerenal azotemia and respiratory failure, we will try albumin with Lasix again ON Lasix 20 mg IV every 12 follow kidney functions non oliguric ATN from sepsis K low replaced. He has multiple infections and pneumonia. Patient has low BP, give one dose of IV Albumin. Creatinine continue to increase. Urine out put is low. Creatinine slowly increasing, K is normal. No urgent need for Dialysis at present. (2) CKD (chronic kidney disease) stage 3, GFR 30-59 ml/min ICD Codes: N18.3 - Chronic kidney disease, stage 3 (moderate) Status: Chronic Plan: Ultrasound revealed chronic kidney disease there is no kidney stones (3) Diabetes ICD Codes: E11.9 - Type 2 diabetes mellitus without complications Plan: Continue to monitor (4) Distal end of ulna fracture, closed ICD Codes: S52.609A - Unspecified fracture of lower end of unspecified ulna, initial encounter for closed fracture Status: Acute Plan: Orthopedic is following Problem Qualifiers (1) Acute renal failure: Qualified Codes: N17.9 - Acute kidney failure, unspecified Aicha Leonard MD May 08, 2017 17:00
--- NOTE | 2017-05-08 18:23 | HHI.CCPN ---
Subjective Remarks/Hospital Course Date of admission: 01/22 Date of critical care medicine consult 02/10 due to acute hypoxemic respiratory failure requiring emergent intubation 62-year-old male with a past medical history of hypertension, hyperlipidemia, diabetes mellitus, gout, uric acid kidney stones, kidney disease of unknown stage who originally presented to [facility] emergency department on 01/22 after a fall in which he sustained a right distal ulna fracture. He had been experiencing a gradual primarily lower extremity weakness as well as upper extremity weakness that was progressive. Neurology consult was obtained. MRI revealed no acute stroke. He had multifocal white matter changes. Tiny lacunar infarcts of the brainstem. Lumbar MRI report states L4-L5 disc protrusion with cetnral canal stenosis. Dr. Blackwell evaluated and states no cord compression on MRI C/T spine and recommended nonoperative management. Symptoms were felt to be consistent with transverse myelitis and he underwent Solumedrol 250 mg IV q6 hours 01/27-02/02. He also was found to have occlusive thrombus in the bilateral posterior tibial veins. Heparin was being avoided because he had traumatic lumbar puncture on 01/26 and 02/01. IVC filter was placed 01/25. He was undergoing physical therapy, reportedly making some improvements with plan to eventually discharged home with his son (max assist standing, and bed to chair per PT note). Apparently he had some vomiting the evening of 02/09 and additional vomiting on 02/10. He had a fever 102.8 on 02/09. Last recorded bowel movement was 02/03. Tonight he had acute onset of severe hypoxemia and respiratory distress. [facility] called and he was brought emergently to [facility] where his sats were 64% on 100% nonrebreather with mean arterial pressure 44. He was emergently intubated, CVL and art line placed. He is in septic shock. SUBJ: 02/11: Patient remains intubated sedated, critically ill. FiO2 reduced to 80% after increasing PEEP to 12. In severe septic shock Levophed at 16 mcg/m, vasopressin at 0.04 international units. D/W vascular surgery Dr. Enciso. He performed bedside Left upper extremity incision and debridement and excision of septic cephalic vein. 02/12: Remains intubated sedated profoundly septic, in shock on vasopressin and 7 mcg/min Levophed. FiO2 has improved to 45%, WBC count remains elevated with 20 ,000 white count significant left shift. Slight improvement in creatinine 2.9 urine output 750 ml 24 hours. 2-D echo shows LV ejection fraction 20-25%, no vegetation reported. Blood cultures 4 staph aureus. Wound culture pending 02/13: Remains critically ill but stable to improving. WBC count is down to 16, creatinine improving to 2.36. Off all pressors. Urine output also improving. 1.5L in 24 hours 02/14: Extubated 02/13. Tolerating well. WBC now down to 12.8. Creat improving 2.3 to 2. UO 3.4L. remains off all pressors. Was started on Precedex yesterday night for agitation, currently on 0.5 g per KG per hour. Chest x-ray shows left more than right air space disease 02/20/17 Re consult: 62-year-old male who was originally admitted for lower extremity weakness and found to have what was thought to be possible transverse myelitis. His hospital course his included a healthcare associated pneumonia, septic thrombophlebitis, DVT. He was most recently in the hospital floor where he had significant nausea and vomiting and diarrhea. His C. difficile test was recently negative. However, he has experienced worsening acute on chronic renal failure, hypotension, tachycardia, and severe hypoxemia. He did have a bout of vomiting earlier today, and his hospitalist attending suspects that he may have aspirated. He arrives by rapid response to the ICU with a nonrebreather in place in severe respiratory distress with SPO2 of 85%. I emergently intubate the patient, see separate procedure note for details. At this point the patient was hypotensive and tachycardic. He does have a history of an EF of 20%, however clinically he appears in florid septic shock. I placed central line and arterial line started vasopressors and gentle IV fluid resuscitation with 1 L of LR. Patient today was empirically broadened to vancomycin and Zosyn from his oxacillin which was initially treating MSSA bacteremia. He is recultured. Critical-care medicine is consulted to evaluate and manage his worsening multiorgan system failure and decompensated septic shock 02/21: Patient remains intubated sedated. Becomes anxious tachypnea on sedation lightening. Chest x-ray shows mild left lower lobe infiltrate. WBC count is slightly improved today from 23.2 t0 21. C Diff negative. UO adequate, creat slightly worsening. 1.57 today 02/22: Remains intubated sedated tolerated CPAP yesterday, plan is for EGD/ Colonscopy. WBC count back to normal. UO adequate. Creat stable 02/23: Tolerating CPAP trials following commands. Will do a spontaneous breathing trials. Status post EGD colonoscopy yesterday -Gastritis, esophagitis. Diverticulosis and multiple polyps. Urine output adequate but creatinine increasing to 1.7 with patient requiring multiple straight catheterization. We'll reinsert Sloan. 02/24: Breathing comfortably 24 hours after extubation. Protects airway well. 02/25: Excoriate bottom, will place rectal FMS. Start pureed diet. 02/26: Afebrile. Complaining of nausea and vomiting this afternoon. Increased stool output. Continue potassium replacement today. 02/27: 10 PM overnight, acutely hypotensive. Received 3 units PRBCs. Antibiotic coverage broadened to piperacillin/tazobactam, cortisol and 1 dose of vancomycin. Oxacillin drip currently on hold. Symptomatically, patient continues to vague abdominal pain/nausea vomiting which is unchanged for the past several days. Lipase elevated yesterday. Lactic acid normal. Troponin normal. Urinary retention after removal of Sloan. Straight catheter 1300. Cc 02/28: New diagnosis large retroperitoneal hematoma. Received 10 PRBC, 14 FFP, 2 platelets, 1 cryo-, 6 g calcium chloride, 2 is magnesium sulfate and 4 mg Bumex. CTA abdomen revealed possible arterial bleeds iliac, lumbar. Patient is currently on norepinephrine and epinephrine drips and possible need right nephrostomy tube placement due to large hematoma compressing ureter. Intra-abdominal bladder pressures are currently 13 03/01: Afebrile. Received 25 g albumin and 1 unit PRBCs overnight. Intra- abdominal bladder pressures currently 19. Currently on 3 micrograms per minute of norepinephrine. Wpoam-kk-isla 1 out of 4 on 4 mics grams per kilogram per minute of cisatracurium. 03/02: Slightly hypothermic overnight. Hemoglobin appears to have stabilized. Troponin bump overnight likely secondary to demand ischemia from hypotension. Hemodynamically stable off all vasopressors. 03/03: Received 1 PRBCs overnight. 3 units currently. Off all vasopressors. Likely rebleeding. Stool is dark. 03/04: Remains unstable. Ventilator dependent. 03/05: afebrile. hgb stable. 03/06: bumex drip started overnight. good uop after bumex initiated. still grossly volume overloaded. Cr downtrending. more awake with transition to propofol. still too volume overloaded to tolerate extubation. hgb stable. 03/07: Afebrile. Tolerating tube feeds at goal with Nepro. Positive BM. On low-dose fentanyl and propofol drips. Potassium currently being replaced. 03/08: Eyes will open on ventilator. Afebrile. Tolerating tube feeding. Failed PSV trial yesterday due to apnea. 03/09: Following commands. Tmax 101. Tolerating tube feeding. One hour PSV trial yesterday. Currently tolerating well so far today 1.5 hours 03/10: Low-grade temperatures. Tolerating PSV trial 10 hours yesterday. Currently at 5/5 at 35%. We'll probably attempt extubation a.m. after hemodialysis. 03/11: Extubated currently in 4 L nasal cannula. Thick secretions thick clear with cough. Currently afebrile. Tolerating diet previously. 03/12: Sleepy this morning but arouses. Following commands. Refusing diet at the present time. On 2 L nasal cannula. 03/13: Patient reintubated last night for worsening respiratory status. Currently sedated on mechanical ventilation. Became hypotensive following intubation and is on Levophed 20 mics per minute. 03/14: Sedated, orally intubated on mech vent at the time of my evaluation this AM, subsequently underwent perc trach placement. Remains on levophed for pressor support. Transfused 1 unit PRBCs today. Persisten 03/15: Trach site clean, dry. CXR with bilateral basilar infiltrates. 03/16: Pulmonary congestion persists. Clinical condition not improving. Prognosis becoming increasingly bleak. 03/17: Glucose intolerance worse. No improvement in neurological function. 03/18: Remains on mechanical ventilation via tracheostomy. Off pressors now. Neurologic status remains poor. 03/19: Drowsy, encephalopathic, arousable. On mechanical ventilation via tracheostomy. Levemir increased for hyperglycemia today. Remains off pressors 03/20: More awake, moves both upper extremities. On mechanical ventilation via tracheostomy. Daily C Pap trials ongoing. 03/21: Awake and alert. On mechanical ventilation via tracheostomy. Opens and closes eyes on command. 03/22: Awake and alert. Tolerated T PIECE for 7 hours yesterday. Dialyzed today. 03/23: Currently on T piece trial. Status post dialysis yesterday on 3 L. Awake and alert. Wants to eat. 03/24: Currently afebrile. Hemodialysis catheter discontinued yesterday from left IJ. Persistent leukocytosis noted. Potassium will be replaced. Furosemide 40 mg twice a day IV to 20 mg IV twice a day 03/25: WBC count unchanged. Patient on T piece with humidified air greater than 48 hours, tolerating it well. Reconsulted 04/12: The patient was transferred emergently from the floor/ [facility]. Patient was initially seen by gardening manager Dr. Estrada, and the patient was noted to be tachypneic on T piece of 40%. ABGs were performed which showed a PaO2 of 60 on T piece of FiO2 of 40%. Chest x-ray was performed which showed loss of entire left hemidiaphragm retail sales assistant consolidation in the left lower lobe. Concern for mucus plugging versus fluid. The patient was transferred emergently to [facility] placed on a ventilator CT of the chest is pending. Upon arrival in the room the patient is alert and oriented, mouthing words, nodding head to yes and no questions O2 sat is 100% but patient is currently on mechanical ventilation. Currently in no respiratory distress. 04/13: Tmax 99.8. The patient's oxygen requirements have decreased currently FiO2 35% with a PaO2 1 blood gas of 85, O2 saturation 100%. No respiratory distress noted. Patient underwent CT of the chest yesterday noted pleural effusions left greater than right, diagnostic/and therapeutic CT thoracentesis plan for this a.m.. 04/14: Patient underwent CT-guided thoracentesis of the right side with approximately 600 cc withdrawn. Today gardening manager Dr. LABOY in and up size indwelling 6.0 Shiley to a 8.0 Shiley. Minimal bleeding noted around the site. X-ray improving. Patient started on CPAP trials today, as well as tube feeds were initiated. 04/15: Placed on T piece this morning via tracheostomy. Appears to be tolerating it. Laying in bed not in any acute distress. 04/16: Awake and alert. Tolerating T piece. Tolerating PEG feeds. 04/17: Awake and alert. Tolerating T piece. Tolerating tube feeds via PEG 04/18: Awake and alert. Tolerating TPs. Tolerating tube feeds. Passed swallow eval 04/19: Awake and alert. Remains on T piece. Wants to move out of ICU as he indicates to me once again as he has for the past few days. Awaiting CIC bed 04/20: Awake and alert. Remains on T piece. Developed hypotension last night for which she was transiently on Levophed however has been off since early this morning. ID adjusting antibiotics and working up for new sepsis. 04/21: Awake and alert. On T piece. Awaiting CIC bed for the last few days. 04/22: Awake and alert. Remains on T piece. Received 500 cc normal saline this morning for tachycardia. 04/23 No events overnight. Remains on TP's with 35% FIO2. Afebrile. 04/24: Resting comfortably. Got short of breath with Passy-Rafy valve which was taken off. 04/25: Remains on T piece. Awaiting transfer out of ICU. 04/26: Remains on T piece. Still awaiting transfer out of ICU since 04/17. 04/27 Patient became hypotensive, bradycardic and hypoxic, ABG on TP's last night showed acute hypercapnic resp acidosis (PH 7.10, CO2: 80) he was subsequently placed on mechanical ventilator. Patient was given Albumin, 2u PRBC and started on Levophed 3mics. Renal function worse today with Cr: 1.53 from 1.13 04/28 No events overnight off Levophed since yesterday. On no sedation. Afebrile. 04/29 Patient is on ventilator via trach. T;100.4 04/30 Patient remains on ventilator via trach. Afebrile. 05/01 No events overnight. Afebrile. 05/02 No events overnight. On ventilator via trach. T: 100.1 last night. 05/03 Patient remains on ventilator via trach. 05/04 No events overnight. Afebrile. Tolerating tube feeds. 05/05: more hypoxic this morning with increased secretions. fio2 rising. ID on board. leukocytosis persists. 05/06: continues to clinically decline. hypotensive and anemic. no evidence of GI bleeding, but acute drop in hgb. no uop overnight. restarted norepinephrine this morning. 2 units prbc ordered. recultured. had discussion with his son: with recurrent bleeding and worsening septic shock, unlikely to survive this hospital stay. son continues to press for aggressive measures. 05/07: continues to worsen overall. mental status still declining. off vasopresors this morning, but kidney injury worsening. wbc uptrending. ID still involved. hgb stabilized. likely too unstable for travel to CT scan. Palliative re-engaged to have further discussions with Son. I spoke with him yesterday, and Dr. Hogan spoke with him again overnight. likely poor prognosis at this point. 05/08: no improvements or changes. off vasopressors. renal function continues to worsen. Objective Vital Signs Date Time Temp Pulse Resp B/P (MAP) Pulse Ox O2 Delivery O2 Flow Rate FiO2 05/08/17 16:55 99 45 05/08/17 14:01 70 11 138/71 (93) 05/08/17 12:01 97.6 Intake and Output 05/08/17 05/08/17 05/09/17 08:00 16:00 00:00 Intake Total 1177 ml Output Total 300 ml Balance 877 ml Result Diagram: 05/08/17 0550 05/08/17 0550 Other Results Microbiology Date/Time Source Procedure Growth Status 05/06/17 11:35 Sputum Endotracheal Gram Stain - Final Complete 05/06/17 11:35 Sputum Endotracheal Sputum Culture - Final RARE GROWTH NORMAL RESPIRATORY EARL Complete 05/06/17 13:00 Urine Catheterized Urine Urine Culture - Final Linda Glabrata Complete Imaging Last Impressions Chest X-Ray 05/03/17 0000 Signed Impressions: Service Date/Time: April 10:19 - CONCLUSION: 1. Poor lung aeration 2. Interstitial vascular prominence 3. Significant left lung opacity characteristic of moderate pleural effusion and underlying basilar air space disease. Lenny Ware MD Thoracentesis 04/13/17 1054 Signed Impressions: Service Date/Time: Thursday, April 13, 2017 15:26 - CONCLUSION: Uncomplicated CT-guided right thoracentesis. Candido Mendoza Jr., MD Chest CT 04/12/17 1558 Signed Impressions: Service Date/Time: March 17:51 - CONCLUSION: 1. Slight increase in size of bilateral effusions and basilar atelectasis, left greater than right compared with October 10. Tracheostomy in good position. Trace Holloway MD Renal Ultrasound 04/02/17 0000 Signed Impressions: Service Date/Time: Sunday, April 02, 2017 16:59 - CONCLUSION: Limited exam with the left kidney being unable to be evaluated in the bladder not distended. There do appear to be multiple shadowing stones at the right kidney without hydronephrosis. Angelo Manzo MD Wrist X-Ray 03/27/17 0000 Signed Impressions: Service Date/Time: Monday, March 27, 2017 13:21 - CONCLUSION: 1. No acute fracture is identified. A portion of the previously documented distal ulna fracture remains visualized. 2. 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 Angelo Allen MD Aortography 02/28/17 0000 Signed Impressions: Service Date/Time: Tuesday, February 28, 2017 08:01 - CONCLUSION: 1. Active hemorrhage from distal right lateral sacral and iliolumbar branches successfully coil and Gelfoam embolized, as above. Juan Bhakta MD Abdomen/Pelvis CT 02/28/17 0000 Signed Impressions: Service Date/Time: Tuesday, February 28, 2017 06:51 - CONCLUSION: 1. The right retroperitoneal hematoma has increased in size, as above. There are 2 serpiginous arterially enhancing structures visualized, one in the right psoas muscle and another extending into the hematoma at the right iliac fossa. These could represent sites of continued active bleeding. 2. Stable moderate size left and small right pleural effusion with associated compressive atelectasis. 3. Stable small volume of free fluid in the abdomen and pelvis. There is also anasarca. The findings concerning the retroperitoneal hematoma were discussed with Dr. Aguiar via telephone at approximately 7: 10 AM on 02/28/2017. Angelo Allen MD Abdomen X-Ray 02/26/17 0000 Signed Impressions: Service Date/Time: Sunday, February 26, 2017 14:52 - CONCLUSION: 1. Nonobstructive bowel gas pattern. Juan Bhakta MD Upper Extremity Ultrasound 02/10/17 0000 Signed Impressions: Service Date/Time: Friday, February 10, 2017 18:46 - CONCLUSION: Occlusive thrombus in the cephalic and basilic veins. Benjamin Person MD Lung Scan-V Nuclear Medicine 02/10/17 Signed Impressions: Service Date/Time: Friday, February 10, 2017 22:17 - CONCLUSION: Low probability pulmonary embolism. Candido Patton MD Head CT 02/10/17 0000 Signed Impressions: Service Date/Time: Friday, February 10, 2017 23:51 - CONCLUSION: Negative noncontrast CT brain. Candido Patton MD Lumbar Puncture Fluoroscopy 02/01/17 0000 Signed Impressions: Service Date/Time: January 09:35 - CONCLUSION: Uncomplicated fluoroscopically guided lumbar puncture. CSF was clear. Nabeel Peralta MD Head Magnetic Resonance Angiography 01/27/17 Signed Impressions: Service Date/Time: Friday, January 27, 2017 10:33 - CONCLUSION: No intracranial vascular abnormality is identified. There is no aneurysm visualized. Angelo Allen MD IVC Filter Placement X-Ray 01/25/17 Signed Impressions: Service Date/Time: January 10:29 - CONCLUSION: Uncomplicated inferior vena cava filter placement as above. Yung Fowler MD Thoracic Spine MRI 01/24/17 Signed Impressions: Service Date/Time: Tuesday, January 24, 2017 22:29 - CONCLUSION: 1. Mild degenerative spondylosis most prominently at T11-L1 with slight effacement of the anterior thecal sac and left lateral recess. No significant neural foraminal stenosis. 2. No acute fracture. Juan Bhakta MD Lumbar Spine MRI 01/23/17 0000 Signed Impressions: Service Date/Time: Monday, January 23, 2017 17:01 - CONCLUSION: 1. At L4-5 is a broad-based disc protrusion with severe central canal and lateral recess stenosis and flattening of the exiting right L4 nerve root. 2. L5-S1 there is a disc protrusion and moderate stenosis with flattening of the exiting L5 nerve roots bilaterally. 3. At L3-4 there is a moderate to severe central stenosis and lateral recess stenosis with mild foraminal stenosis. 4. No acute fracture or spondylolisthesis. Trace Holloway MD Lower Extremity Ultrasound 01/23/17 Signed Impressions: Service Date/Time: Monday, January 23, 2017 09:53 - CONCLUSION: Bilateral focal lower extremity DVT involving the posterior tibial veins. Angelo Garrido MD Cervical Spine MRI 01/23/17 0000 Signed Impressions: Service Date/Time: Monday, January 23, 2017 17:01 - CONCLUSION: 1. Multilevel cervical spine degenerative changes as above. 2. Mild degrees of spinal stenosis at C3/C4-C6/C7. No cord compression or cord signal abnormality. 3. Age indeterminate left paracentral/foraminal disc protrusion at C6/C7. 4. Multilevel foraminal stenosis, most severe on the left at C6/C7. Please see individual levels above. 5. No fracture or subluxation of the cervical spine. Angelo Garrido MD Brain MRI 01/23/17 0000 Signed Impressions: Service Date/Time: Monday, January 23, 2017 17:01 - CONCLUSION: 1. No acute stroke or other acute intracranial abnormality demonstrated. 2. Moderate severity chronic white matter changes, nonspecific but most likely related to chronic small vessel disease. 3. Few scattered tiny lacunar infarcts of the brainstem. 4. Given the findings are not entirely specific, clinical evaluation for possible multiple sclerosis recommended. Angelo Garrido MD Knee X-Ray [id number] Signed Impressions: Service Date/Time: Sunday, January 22, 2017 21:17 - CONCLUSION: 1. Evidence of moderate to large joint effusion. 2. No acute fracture or malalignment. 3. Mild 3 compartment osteoarthritic change. Benjamin Person MD Hip and Pelvis X-Ray [id number] Signed Impressions: Service Date/Time: Sunday, January 22, 2017 21:10 - CONCLUSION: 1. Mild to moderate degenerative change of both hips with no acute fracture or malalignment. There is flattening and remodeling of the right humeral head. Benjamin Person MD Objective Remarks GENERAL: 62-year-old male, resting in bed, on mechanical ventilation via trach HEENT: Normocephalic. Atraumatic. Pupils equal, round, reactive. NECK: Tracheostomy in place CHEST: b/l equal air entry CARDIOVASCULAR: normal rate, regular rhythm. ABDOMEN distended. No rigidity. Umbilical hernia is reducible. No guarding. PEG tube in place : Positive scrotal edema Sloan in situ MUSCULOSKELETAL: Pulses 2+. 1+ bilateral upper and lower extremity edema. NEUROLOGICAL: RASS -3. obtunded. weakly withdraws to pain x 4. Procedures 01/25/2017- Retrievable IVC Filter placement 01/26/17-lumbar puncture with fluoroscopy-by interventional radiology 02/01/17- lumbar puncture fluoroscopy by interventional radiology 02/10/17- Endotracheal Intubation 02/10/17-left IJ central venous line placed 02/10/17-left femoral arterial line placed 02/11/17-Diagnostic and therapeutic bronchoscopy with bronchoalveolar lavage 02/11/17-Left upper extremity incision and debridement with excision of septic cephalic vein 02/13/17- Extubated 02/20/17- endotracheal intubation 02/20/17- Left subclavian central line placement 02/20/17-Right radial A-line placement 02/22/17-EGD/colonoscopy 02/28/17-right radial a line 02/28/17- Endotracheal intubation 02/28/17- right sided introducer catheter placement 02/28/17- Right IJ central line placement 02/28/17-Right chest tube placement 02/28/17- Embolization of inferior and superior sacral branches of right internal iliac artery 03/01/17- Hemodialysis access catheter 03/03/17-Right IJ central line placement 03/11/17-Extubated 03/13/17- Endotracheal intubation 03/14/17-Tracheostomy placement, trach downsized to 6.0 Anni 03/30/17 03/15/17-PEG tube placement 04/11/17-CT Chest 04/13/17-thoracentesis right 600 cc removed A/P Problem List: (1) Septic shock ICD Code: A41.9 - Sepsis, unspecified organism; R65.21 - Severe sepsis with septic shock Status: Acute (2) Acute respiratory failure ICD Code: J96.00 - Acute respiratory failure, unspecified whether with hypoxia or hypercapnia Status: Chronic (3) Thrombophlebitis arm ICD Code: I80.8 - Phlebitis and thrombophlebitis of other sites (4) Aspiration pneumonia ICD Code: J69.0 - Pneumonitis due to inhalation of food and vomit Status: Acute (5) Atelectasis of left lung ICD Code: J98.11 - Atelectasis Status: Acute (6) Quadriparesis ICD Code: G82.50 - Quadriplegia, unspecified Status: Acute (7) DVT (deep venous thrombosis) ICD Code: I82.409 - Acute embolism and thrombosis of unspecified deep veins of unspecified lower extremity (8) Altered mental status ICD Code: R41.82 - Altered mental status, unspecified Status: Acute (9) CKD (chronic kidney disease) stage 3, GFR 30-59 ml/min ICD Code: N18.3 - Chronic kidney disease, stage 3 (moderate) Status: Chronic (10) Acute renal failure ICD Code: N17.9 - Acute kidney failure, unspecified Status: Acute (11) Diabetes mellitus ICD Code: E11.9 - Type 2 diabetes mellitus without complications Status: Chronic (12) Distal end of ulna fracture, closed ICD Code: S52.609A - Unspecified fracture of lower end of unspecified ulna, initial encounter for closed fracture Status: Acute (13) Gout ICD Code: M10.9 - Gout, unspecified Status: Chronic Assessment and Plan Assessment: 62yM with chronic multi-organ dysfunction now with recurrent septic shock. hgb stable, active bleeding has appeared to stop at this point. ID to re- eval abx regimen. goals remain aggressive, although DNR code status. no improvements. renal function worsens: poor candidate for recurrent acute renal replacement therapy. overall poor prognosis. NEURO/PSYCH: Acute metabolic encephalopathy- persistent, worsening this morning. Quadriparesis secondary to suspected transverse myelitis Recurrent falls On no sedation. Monitor neuro status. Suspected transverse myelitis. Received methylprednisolone 250 mg IV every 6 hours 01/27-02/02, started back on hydrocortisone 02/21/17, initially tapering to 50 mg IV every 8 hours starting received 1 dose at 2100 prior to becoming hypotensive. weaning hydrocortisone taper and stopped 03/09. Resumed hydrocortisone 50mg IV Q6hrly on 03/14 as patient became hypotensive following intubation on 03/13 requiring levophed. LP 01/26 and 02/01. CSF culture negative 01/26, 02/01 Oligoclonal bands negative. CSF/serum IgG index is not elevated. VDRL nonreactive. Cryptococcal antigen negative. Brain MRI 01/23 no acute stroke. Few scattered lacunar infarcts of the brainstem. Moderate chronic white matter changes. MRI cervical/thoracic spine- mild spinal stenosis C3/C4 to C6/C7. No cord compression. RPR negative Neurology has been following, Dr. Crenshaw. Repeat CT brain 02/10 - negative Continue PT/OT oxycodone 5mg po q4h scheduled start weaning hydrocortisone. RESP: Acute hypoxemic respiratory failure - persistent. Healthcare associated pneumonia/Aspiration Pneumonia - recurrent. S/P Right-sided chest tube 02/28 Continue with vent support keep sat >92% Bronchodilators, pulm toilet, trach care s/p perc tracheostomy 03/14. Pulmonology following Dr. Estrada 04/13 CT guided thoracentesis scheduled emergently as discussed with Dr. Estrada - 600cc removed (right) 04/14-tracheostomy up sized to 8.[address] [place] [address]. Estrada at bedside CV: Systolic heart failure likely chronic with ejection fraction 20-25% Hyperlipidemia History of hypertension Mild TR Sinus tachycardia Elevated troponin likely type II demand ischemia Septic Shock Hemorrhagic shock hold lopressor given recent shock [On Lopressor 25mg Q12] Atorvastatin 10 mg by mouth daily for dyslipidemia. 2-D echocardiogram 01/11 revealed EF 20-25%. Mild TR. Pulmonary arterial pressures were normal around 20 GI: Large right retroperitoneal hematoma - resolved. Erosive esophagitis Adenomatous/hyperplastic colon polyps Severe acute protein calorie malnutrition Nausea/vomiting - resolved. Diarrhea Gastritis Diverticulosis Internal and external hemorrhoids Hiatal hernia Elevated lipase On tube feeds-Nepro@ 40ml/hr 02/27 CT chest/abdomen and pelvis - 9.4 x 7.5 renal and 16 x 12 cm right psoas muscle hematoma. Fluid around liver and spleen. Right-sided nephrolithiasis CTA abdomen 02/28 - possible blushing around iliac/lumbar vessels Discussed with IR. s/p attempted embolization CT abdomen and pelvis 02/10 atrophic left kidney. Bilateral inguinal hernias fat- containing. Nonobstructing 12 mm right kidney stone repeat CT abd/pelvis did not show evidence of obstruction. patient clinically has been having diarrhea (c. diff negative 02/19). also with nausea/vomiting of unclear etiology. EGD/Colonoscopy-02/22/17 showed gastritis esophagitis, hiatal hernia, diverticulosis and multiple polyps in descending colon and sigmoid which were snared biopsied. 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 Liao. On Lasix 20mg Q12, IV Albumin RIOS/SPEP negative. 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 Recommended nephrostomy tube if obstruction Nephrology consulted, off hemodialysis. Making urine. ICU electrolyte replacement protocol Last IHD was 03/22 decrease Free water to 200ml Q6, monitor sodium level.. ID: Septic shock- recurrent Abscess and Suppurative thrombophlebitis left upper extremity MSSA bacteremia Klebsiella UTI ESBL positive Acute aspiration pneumonia/HCAP 04/27 Sputum cx: Pseudomonas, Urine cx: Ivaina Bustillo , BC: 05/24 bottles: Coag negative staph likely contaminant 04/29 BC: NGTD 05/01 Wound cx: Pseudomonas, Group D enterococcus, GNR Previously treated with Bactrim, ertapenem, intermittent vancomycin, nafcillin Blood cultures 2, UA ESBL positive Klebsiella UTI Sputum 03/14 - Pseudomonas came back resistant to imipenem, Stenotrophomonas maltophilia Antibiotics per ID. on Diflucan, Zerbaxa, ID is following. C-diff PCR negative wound service is following. stage IV sacral ulcer, ulcer right ankle/LE reculture. ID on board. leukocytosis is worse. HEME: Acute blood loss anemia- worsening. DVT, bilateral posterior tibial vein, IVC filter Septic thrombophlebitis with occlusive thrombus mid cephalic and basilic vein side Monitor CBC s/p transfusion 2units PRBC ( 04/26) Received 10 PRBC, 14 FFP, 2 platelets, 1 cryo-02/28 Received 3 units PRBCs Ultrasound 01/23/17 - Bilateral lower extremity with occlusive posterior tibial vein DVTs. Heparin was initially started for DVT but was placed on hold due to LP with suspected traumatic tap. Currently holding full anticoagulation with enoxaparin 100 mg IV twice a day due to anemia as of 02/26 IVC filter was placed 01/25/17. Ultrasound LUE 02/10 occlusive thrombus mid cephalic vein, basilic vein.s. Transfuse 3 units PRBCs 02/27 Transfuse 2 units PRBCs 03/01. Transfused 1 unit PRBCs on 03/14 transfused 2 units prbc 05/06 daily cbc ENDO: Diabetes mellitus Hypoglycemia History of prior adrenal insufficiency with shock Gout Accu-Cheks to maintain euglycemia Novulin R every 4 hours. Low Regimen MSK: Right distal ulna fracture. Recommended nonoperative management. PROPH: Lansoprazole 30 mg twice a day twice a day for stress ulcer prophylaxis. Has IVC filter. Therapeutic enoxaparin was placed on hold for retroperitoneal hematoma ACCESS: Right subclavian CVP placed 04/27. keep given critical illness and recent vasopressor requirement. Dispo: remain in ICU. critically ill Problem Qualifiers (1) Aspiration pneumonia: (2) DVT (deep venous thrombosis): Qualified Codes: I82.443 - Acute embolism and thrombosis of tibial vein, bilateral (3) Acute renal failure: Qualified Codes: N17.9 - Acute kidney failure, unspecified (4) Diabetes mellitus: (5) Gout: Anthony Rivas MD May 08, 2017 18:23
[2017-05-08] MEDS: ATORVASTATIN 10 MG TAB PO SCH (21:43)
[2017-05-09] VITALS (31 sets, daily range): BP systolic 128–155; BP diastolic 69–81; PULSE 65–88; RESP 6–18; TEMP 97–98; O2SAT 96–100
[2017-05-09] MEDS: oxyCODONE HCL ORAL CONC 5 MG/0.25 ML SYRINGE PO SCH ×6 (02:01→22:32)
[2017-05-09] MEDS: ALBUMIN 25% INJ 100 ML IV SCH ×2 (04:16→17:51)
[2017-05-09] MEDS: HYDROCORTISONE SOD SUCCINATE 100 MG VIAL IV PUSH SCH ×4 (04:17→22:32)
[2017-05-09] MEDS: FREE WATER G-TUBE SCH ×2 (04:44→12:00)
[2017-05-09] MEDS: INSULIN NovoLIN REGULAR SUPPLEMENTAL SCALE SQ SCH ×5 (04:44→20:19)
[2017-05-09 07:43] LABS: HEMATOCRIT 26.4 % (39.0-51.0); MEAN CELL VOLUME 86.9 FL (80.0-100.0); MEAN CORPUSCULAR HEMOGLOBIN 27.7 PG (27.0-34.0); MEAN CORPUSCULAR HGB CONC 31.8 % (32.0-36.0); PLATELET COUNT 187 TH/MM3 (150-450); RED BLOOD COUNT 3.03 MIL/MM3 (4.50-5.90); RED CELL DISTRIBUTION WIDTH 17.3 % (11.6-17.2); REVIEW FLAG FINAL
[2017-05-09 08:23] LABS: BICARBONATE 19.3 MEQ/L (21.0-32.0); POTASSIUM 3.2 MEQ/L (3.5-5.1)
[2017-05-09] MEDS: TAMSULOSIN HCL 0.4 MG CAP PO SCH ×2 (09:00→20:18)
[2017-05-09] MEDS: SODIUM CHLORIDE 0.9% FLUSH 10 ML FLUSH IV FLUSH SCH ×3 (09:28→20:19)
[2017-05-09] MEDS: CHLORHEXIDINE 0.12% (ORAL KIT) 15 ML CUP MT SCH ×2 (09:28→20:19)
[2017-05-09] MEDS: QUEtiapine FUMARATE 25 MG TAB PO SCH (09:29)
[2017-05-09] MEDS: FLUCONAZOLE 200 MG TAB PO SCH (09:29)
[2017-05-09] MEDS: LACTOBACILLUS ACIDOPHILUS TAB PO SCH ×3 (09:29→17:52)
[2017-05-09] MEDS: LANSOPRAZOLE SOLUTAB 30 MG TAB NG SCH ×2 (09:29→20:18)
[2017-05-09] MEDS: CHOLESTYRAMINE 4 GM PACKET G-TUBE SCH ×2 (09:30→20:18)
[2017-05-09] MEDS: COLLAGENASE OINT 30 GM TUBE TOPICAL SCH (09:30)
--- NOTE | 2017-05-09 16:36 | HHI.NPPN ---
Subjective History of Present Illness 61-year-old with history of urinary stone patient again got unstable has recurrent bouts of ICU admission requiring ventilation and respiratory care started having scrotal swelling and acute renal failure again, he had mild hyperkalemia and this was treated I have been reconsulted again Additional Remarks Patient had trach on vent, not in distress, open eyes spontaneously, not following all commands. On CPAP since AM. Review of Systems General Constitutional: Fatigue Objective Data Data Vital Signs Date Time Temp Pulse Resp B/P (MAP) Pulse Ox O2 Delivery O2 Flow Rate FiO2 05/09/17 14:46 98 35 05/09/17 14:01 72 10 138/71 (93) 98 05/09/17 14:00 71 05/09/17 13:01 69 8 135/69 (91) 97 05/09/17 12:26 96 35 05/09/17 12:12 97.4 77 18 155/80 (105) 96 05/09/17 12:00 35 05/09/17 12:00 88 05/09/17 11:01 74 6 144/76 (98) 98 05/09/17 10:01 69 10 145/77 (99) 97 05/09/17 10:00 73 05/09/17 09:01 71 13 135/73 (93) 97 05/09/17 08:14 97 35 05/09/17 08:01 97.0 68 9 136/74 (94) 98 05/09/17 08:00 68 05/09/17 08:00 35 05/09/17 07:01 74 15 128/75 (92) 97 05/09/17 06:00 65 05/09/17 04:05 97 45 05/09/17 04:00 69 05/09/17 04:00 45 05/09/17 04:00 97.9 69 10 136/73 (94) 97 05/09/17 02:00 68 05/09/17 00:57 99 45 05/09/17 00:00 73 05/09/17 00:00 97.8 73 16 152/79 (103) 99 05/09/17 00:00 45 05/08/17 22:00 74 05/08/17 20:01 99 45 05/08/17 20:00 45 05/08/17 20:00 69 12/19/17 20:00 97.9 69 17 139/73 (95) 99 05/08/17 18:36 17 05/08/17 18:01 72 17 159/85 (109) 99 05/08/17 18:00 71 05/08/17 17:01 68 17 134/70 (91) 99 05/08/17 16:55 99 45 -: 05/09/17 0530 05/09/17 0530 Physical Exam General Appearance: No Acute Distress, Pale Eyes Eye Exam: Pupils Equal Throat Throat Exam: Oral Mucosa Cactus & Moist Neck Neck Exam: Neck Supple Pulmonary Resp Exam: Clear Bilaterally Cardiology CV Exam: Normal Sinus Rhythm Gastrointestinal/Abdomen GI Exam: Non-Tender, Distended Genitourinary Exam: Flank Non-Tender (scrotal edema) Extremeties Extremities Exam: Moderate Edema, Pitting Edema Neurologic Neuro Exam: Awake Assessment/Plan Problem List: (1) Acute renal failure ICD Codes: N17.9 - Acute kidney failure, unspecified Status: Acute Plan: Patient with pneumonia as, sepsis, acute renal failure Had pneumonia, developed sepsis with ARF. 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 Patient had been on dialysis earlier in hospitalization. He again has prerenal azotemia and respiratory failure, we will try albumin with Lasix again ON Lasix 20 mg IV every 12 follow kidney functions non oliguric ATN from sepsis K low replaced. He has multiple infections and pneumonia. Patient has low BP, give one dose of IV Albumin. Creatinine continue to increase. Urine out put is low. Creatinine slowly increasing, K is low. No urgent need for Dialysis at present. Weaning as tolerated. (2) CKD (chronic kidney disease) stage 3, GFR 30-59 ml/min ICD Codes: N18.3 - Chronic kidney disease, stage 3 (moderate) Status: Chronic Plan: Ultrasound revealed chronic kidney disease there is no kidney stones (3) Diabetes ICD Codes: E11.9 - Type 2 diabetes mellitus without complications Plan: Continue to monitor (4) Distal end of ulna fracture, closed ICD Codes: S52.609A - Unspecified fracture of lower end of unspecified ulna, initial encounter for closed fracture Status: Acute Plan: Orthopedic is following Problem Qualifiers (1) Acute renal failure: Qualified Codes: N17.9 - Acute kidney failure, unspecified Aicha Leonard MD May 09, 2017 16:36
--- NOTE | 2017-05-09 17:26 | HHI.HCPN ---
Reason for visit a. To assist with evaluation and management of symptoms including: shortness of breath, pain, debility. b. To assist medical decision maker(s) with: better understanding of current medical conditions; weighing benefits/burdens of medical treatment options; making medical treatment decisions. Subjective/Interval History Patient seen and examined in ICU. No family at bedside. Discussed with Dr. Mendoza. Patient awakens briefly to voice, nods no intermittently, even when I am not asking questions. Afebrile. On vent FiO2 35%. VSS. Off sedation and pressors. Hemoglobin 8.4. WBC 23. Worsening renal function creatinine 2.76 to 3.0. 05/06/17 urine culture Linda Albicans. Blood cultures no growth 3 days. No new imaging. . Family/friend interactions Left message for sonDavie to provide update. Awaiting return call. . Advance Directives Living Will: Never completed Health Care Surrogate: Never completed Durable Power of Coding Quality Coordinator: Never completed Advance Directive Specifics Health Care Surrogate(s): Healthcare proxys- Son-Davie Kerr - ; Son-Arnel Kerr- -cell -home -Opted out though he wants to be updated on patient`s medical status. Documented care wishes: No known documented care wishes have been completed. . Significant change in goals: Alternate code: Intubation only.Awaiting return call from son. . Objective Vital Signs Date Time Temp Pulse Resp B/P (MAP) Pulse Ox O2 Delivery O2 Flow Rate FiO2 05/09/17 14:46 98 35 05/09/17 14:01 72 10 138/71 (93) 98 05/09/17 14:00 71 05/09/17 13:01 69 8 135/69 (91) 97 05/09/17 12:26 96 35 05/09/17 12:12 97.4 77 18 155/80 (105) 96 05/09/17 12:00 35 05/09/17 12:00 88 05/09/17 11:01 74 6 144/76 (98) 98 05/09/17 10:01 69 10 145/77 (99) 97 05/09/17 10:00 73 05/09/17 09:01 71 13 135/73 (93) 97 05/09/17 08:14 97 35 05/09/17 08:01 97.0 68 9 136/74 (94) 98 05/09/17 08:00 68 05/09/17 08:00 35 05/09/17 07:01 74 15 128/75 (92) 97 05/09/17 06:00 65 05/09/17 04:05 97 45 05/09/17 04:00 69 05/09/17 04:00 45 05/09/17 04:00 97.9 69 10 136/73 (94) 97 05/09/17 02:00 68 05/09/17 00:57 99 45 05/09/17 00:00 73 05/09/17 00:00 97.8 73 16 152/79 (103) 99 05/09/17 00:00 45 05/08/17 22:00 74 05/08/17 20:01 99 45 05/08/17 20:00 45 05/08/17 20:00 69 05/08/17 20:00 97.9 69 17 139/73 (95) 99 05/08/17 18:36 17 05/08/17 18:01 72 17 159/85 (109) 99 05/08/17 18:00 71 Intake & Output 05/09/17 05/09/17 07:00 19:00 Intake Total 1281 ml Output Total 350 ml Balance 931 ml IV Total 200 ml Tube Feeding 481 ml Albumin 100 ml Other 500 ml Output Urine Total 150 ml Stool Total 200 ml Physical Exam CONSTITUTIONAL/GENERAL: This is an ill-looking patient. TUBES/LINES/DRAINS: PEG tube, Tracheostomy on a mechanical ventilator, PIVs, catheter. SKIN: No jaundice. Ecchymoses on upper extremities. Sacral pressure wound and L heel pressure injury per EMR. Wound to anterior neck - tracheostomy insertion area with a foam dressing. Not diaphoretic. ENT: Trached. Nose without bleeding or purulent drainage. Moist oral mucosa. NECK: Trachea midline. #8 Tracheostomy midline- patient on mechanical ventilation CARDIOVASCULAR: Regular rate and rhythm without murmurs, gallops, or rubs. No JVD. RESPIRATORY/CHEST: Symmetrical, rhonchi and wheezy to auscultation. Small amount of yellow secretions around trach . Breath sounds equal bilaterally. Patient on mechanical ventilation GASTROINTESTINAL: Abdomen soft, nondistended. No guarding. Bowel sounds present. GENITOURINARY: Without palpable bladder distension. catheter in place. MUSCULOSKELETAL: Gout tophi to fingers, knees, elbows and both ankles. Edema + 3 noted to all 4 extremities. NEUROLOGICAL: Trached. Unresponsive. PSYCHIATRIC: Unresponsive. . Diagnostic Tests Laboratory Laboratory Tests Test 05/07/17 03:41 05/08/17 05:50 05/09/17 05:30 White Blood Count 32.1 TH/MM3 (4.0-11.0) 26.6 TH/MM3 (4.0-11.0) 23.0 TH/MM3 (4.0-11.0) Red Blood Count 3.28 MIL/MM3 (4.50-5.90) 3.12 MIL/MM3 (4.50-5.90) 3.03 MIL/MM3 (4.50-5.90) Hemoglobin 9.1 GM/DL (13.0-17.0) 8.6 GM/DL (13.0-17.0) 8.4 GM/DL (13.0-17.0) Hematocrit 28.1 % (39.0-51.0) 27.1 % (39.0-51.0) 26.4 % (39.0-51.0) Mean Corpuscular Volume 85.8 FL (80.0-100.0) 86.8 FL (80.0-100.0) 86.9 FL (80.0-100.0) Mean Corpuscular Hemoglobin 27.7 PG (27.0-34.0) 27.7 PG (27.0-34.0) 27.7 PG (27.0-34.0) Mean Corpuscular Hemoglobin Concent 32.3 % (32.0-36.0) 31.9 % (32.0-36.0) 31.8 % (32.0-36.0) Red Cell Distribution Width 16.9 % (11.6-17.2) 17.3 % (11.6-17.2) 17.3 % (11.6-17.2) Platelet Count 265 TH/MM3 (150-450) 216 TH/MM3 (150-450) 187 TH/MM3 (150-450) Mean Platelet Volume 8.4 FL (7.0-11.0) 8.3 FL (7.0-11.0) 8.5 FL (7.0-11.0) Blood Urea Nitrogen 71 MG/DL (7-18) 87 MG/DL (7-18) 107 MG/DL (7-18) Creatinine 2.58 MG/DL (0.60-1.30) 2.76 MG/DL (0.60-1.30) 3.00 MG/DL (0.60-1.30) Random Glucose 238 MG/DL (74-106) 310 MG/DL (74-106) 284 MG/DL (74-106) Calcium Level 10.2 MG/DL (8.5-10.1) 9.6 MG/DL (8.5-10.1) 8.6 MG/DL (8.5-10.1) Sodium Level 138 MEQ/L (136-145) 136 MEQ/L (136-145) 132 MEQ/L (136-145) Potassium Level 3.5 MEQ/L (3.5-5.1) 3.5 MEQ/L (3.5-5.1) 3.2 MEQ/L (3.5-5.1) Chloride Level 104 MEQ/L (98-107) 102 MEQ/L (98-107) 97 MEQ/L (98-107) Carbon Dioxide Level 21.5 MEQ/L (21.0-32.0) 21.7 MEQ/L (21.0-32.0) 19.3 MEQ/L (21.0-32.0) Anion Gap 13 MEQ/L (5-15) 12 MEQ/L (5-15) 16 MEQ/L (5-15) Estimat Glomerular Filtration Rate 25 ML/MIN (>89) 23 ML/MIN (>89) 21 ML/MIN (>89) Result Diagram: 05/09/1730 05/09/17 0530 Microbiology Microbiology Date/Time Source Procedure Growth Status 05/06/17 13:26 Blood Peripheral Aerobic Blood Culture - Preliminary NO GROWTH IN 3 DAYS Resulted 05/06/17 13:26 Blood Peripheral Anaerobic Blood Culture - Preliminary NO GROWTH IN 3 DAYS Resulted 04/13/17 16:30 Fluid Pleural Fluid Fungal Smear - Final NO FUNGAL ELEMENTS SEEN. Resulted 04/13/17 16:30 Fluid Pleural Fluid Fungal Culture - Preliminary NO GROWTH IN 3 WEEKS Resulted 02/17/17 05:55 Stool Stool Stool Occult Blood (GREGORY) - Final HEMOCCULT POSITIVE Complete 05/06/17 11:35 Sputum Endotracheal Gram Stain - Final Complete 05/06/17 11:35 Sputum Endotracheal Sputum Culture - Final RARE GROWTH NORMAL RESPIRATORY EARL Complete 05/06/17 13:00 Urine Catheterized Urine Urine Culture - Final Linda Glabrata Complete 05/01/17 11:30 Wound Other Gram Stain - Final Complete 05/01/17 11:30 Wound Culture - Final Pseudomonas Aeruginosa Klebsiella Pneumoniae Esbl Pos Enterococcus Faecium Vre Complete Imaging Last Impressions Chest X-Ray 05/03/17 0000 Signed Impressions: Service Date/Time: April 10:19 - CONCLUSION: 1. Poor lung aeration 2. Interstitial vascular prominence 3. Significant left lung opacity characteristic of moderate pleural effusion and underlying basilar air space disease. Lenny Ware MD Thoracentesis 04/13/17 1054 Signed Impressions: Service Date/Time: Thursday, April 13, 2017 15:26 - CONCLUSION: Uncomplicated CT-guided right thoracentesis. Candido Mendoza Jr., MD Chest CT 04/12/17 1558 Signed Impressions: Service Date/Time: March 17:51 - CONCLUSION: 1. Slight increase in size of bilateral effusions and basilar atelectasis, left greater than right compared with February 27. Tracheostomy in good position. Trace Holloway MD Renal Ultrasound 04/02/17 0000 Signed Impressions: Service Date/Time: Sunday, April 02, 2017 16:59 - CONCLUSION: Limited exam with the left kidney being unable to be evaluated in the bladder not distended. There do appear to be multiple shadowing stones at the right kidney without hydronephrosis. Angelo Manzo MD Wrist X-Ray 03/27/17 0000 Signed Impressions: Service Date/Time: Monday, March 27, 2017 13:21 - CONCLUSION: 1. No acute fracture is identified. A portion of the previously documented distal ulna fracture remains visualized. 2. 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 Angelo Allen MD Aortography 02/28/17 0000 Signed Impressions: Service Date/Time: Tuesday, February 28, 2017 08:01 - CONCLUSION: 1. Active hemorrhage from distal right lateral sacral and iliolumbar branches successfully coil and Gelfoam embolized, as above. Juan Bhakta MD Abdomen/Pelvis CT 02/28/17 0000 Signed Impressions: Service Date/Time: Tuesday, February 28, 2017 06:51 - CONCLUSION: 1. The right retroperitoneal hematoma has increased in size, as above. There are 2 serpiginous arterially enhancing structures visualized, one in the right psoas muscle and another extending into the hematoma at the right iliac fossa. These could represent sites of continued active bleeding. 2. Stable moderate size left and small right pleural effusion with associated compressive atelectasis. 3. Stable small volume of free fluid in the abdomen and pelvis. There is also anasarca. The findings concerning the retroperitoneal hematoma were discussed with Dr. Aguiar via telephone at approximately 7: 10 AM on 02/28/2017. Angelo Allen MD Abdomen X-Ray 02/26/17 0000 Signed Impressions: Service Date/Time: Sunday, February 26, 2017 14:52 - CONCLUSION: 1. Nonobstructive bowel gas pattern. Juan Bhakta MD Upper Extremity Ultrasound 02/10/17 0000 Signed Impressions: Service Date/Time: Friday, February 10, 2017 18:46 - CONCLUSION: Occlusive thrombus in the cephalic and basilic veins. Benjamin Person MD Lung Scan- Nuclear Medicine 02/10/17 0000 Signed Impressions: Service Date/Time: Friday, February 10, 2017 22:17 - CONCLUSION: Low probability pulmonary embolism. Candido Patton MD Head CT 02/10/17 0000 Signed Impressions: Service Date/Time: Friday, February 10, 2017 23:51 - CONCLUSION: Negative noncontrast CT brain. Candido Patton MD Lumbar Puncture Fluoroscopy 02/01/17 0000 Signed Impressions: Service Date/Time: January 09:35 - CONCLUSION: Uncomplicated fluoroscopically guided lumbar puncture. CSF was clear. Nabeel Peralta MD Head Magnetic Resonance Angiography 01/27/17 0000 Signed Impressions: Service Date/Time: Friday, January 27, 2017 10:33 - CONCLUSION: No intracranial vascular abnormality is identified. There is no aneurysm visualized. Angelo Allen MD IVC Filter Placement X-Ray 01/25/17 Signed Impressions: Service Date/Time: January 10:29 - CONCLUSION: Uncomplicated inferior vena cava filter placement as above. Yung Fowler MD Thoracic Spine MRI 01/24/17 Signed Impressions: Service Date/Time: Tuesday, January 24, 2017 22:29 - CONCLUSION: 1. Mild degenerative spondylosis most prominently at T11-L1 with slight effacement of the anterior thecal sac and left lateral recess. No significant neural foraminal stenosis. 2. No acute fracture. Juan Bhakta MD Lumbar Spine MRI 01/23/17 Signed Impressions: Service Date/Time: Monday, January 23, 2017 17:01 - CONCLUSION: 1. At L4-5 is a broad-based disc protrusion with severe central canal and lateral recess stenosis and flattening of the exiting right L4 nerve root. 2. L5-S1 there is a disc protrusion and moderate stenosis with flattening of the exiting L5 nerve roots bilaterally. 3. At L3-4 there is a moderate to severe central stenosis and lateral recess stenosis with mild foraminal stenosis. 4. No acute fracture or spondylolisthesis. Trace Holloway MD Lower Extremity Ultrasound 01/23/17 Signed Impressions: Service Date/Time: Monday, January 23, 2017 09:53 - CONCLUSION: Bilateral focal lower extremity DVT involving the posterior tibial veins. Angelo Garrido MD Cervical Spine MRI 01/23/17 Signed Impressions: Service Date/Time: Monday, January 23, 2017 17:01 - CONCLUSION: 1. Multilevel cervical spine degenerative changes as above. 2. Mild degrees of spinal stenosis at C3/C4-C6/C7. No cord compression or cord signal abnormality. 3. Age indeterminate left paracentral/foraminal disc protrusion at C6/C7. 4. Multilevel foraminal stenosis, most severe on the left at C6/C7. Please see individual levels above. 5. No fracture or subluxation of the cervical spine. Angelo Garrido MD Brain MRI 01/23/17 Signed Impressions: Service Date/Time: Monday, January 23, 2017 17:01 - CONCLUSION: 1. No acute stroke or other acute intracranial abnormality demonstrated. 2. Moderate severity chronic white matter changes, nonspecific but most likely related to chronic small vessel disease. 3. Few scattered tiny lacunar infarcts of the brainstem. 4. Given the findings are not entirely specific, clinical evaluation for possible multiple sclerosis recommended. Angelo Garrido MD Knee X-Ray 01/22/172053 Signed Impressions: Service Date/Time: Sunday, January 22, 2017 21:17 - CONCLUSION: 1. Evidence of moderate to large joint effusion. 2. No acute fracture or malalignment. 3. Mild 3 compartment osteoarthritic change. Benjamin Person MD Hip and Pelvis X-Ray 01/22/172053 Signed Impressions: Service Date/Time: Sunday, January 22, 2017 21:10 - CONCLUSION: 1. Mild to moderate degenerative change of both hips with no acute fracture or malalignment. There is flattening and remodeling of the right humeral head. Benjamin Person MD Procedures 01/25/2017- Retrievable IVC Filter placement 01/26/17-lumbar puncture with fluoroscopy-by interventional radiology 02/01/17- lumbar puncture fluoroscopy by interventional radiology 02/10/17- Endotracheal Intubation 02/10/17-left IJ central venous line placed 02/10/17-left femoral arterial line placed 02/11/17-Diagnostic and therapeutic bronchoscopy with bronchoalveolar lavage 02/11/17-Left upper extremity incision and debridement with excision of septic cephalic vein 02/13/17- Extubated 02/20/17- endotracheal intubation 02/20/17- Left subclavian central line placement 02/20/17-Right radial A-line placement 02/22/17-EGD/colonoscopy 02/28/17-right radial a line 02/28/17- Endotracheal intubation 02/28/17- right sided introducer catheter placement 02/28/17- Right IJ central line placement 02/28/17-Right chest tube placement 02/28/17- Embolization of inferior and superior sacral branches of right internal iliac artery 03/01/17- Hemodialysis access catheter 03/03/17-Right IJ central line placement 03/11/17-Extubated 03/13/17- Endotracheal intubation 03/14/17-Tracheostomy placement 03/15/17-PEG tube placement 04/13/17-thoracentesis right 600 cc removed 04/13/17-Tracheostomy up-sized to #8 Shiley 04/26/17 Central line placement . Assessment and Plan Disease Oriented Problem List: (1) Acute respiratory failure (2) Septic shock (3) Aspiration pneumonia (4) Acute renal failure (5) CKD (chronic kidney disease) stage 3, GFR 30-59 ml/min (6) Cardiomyopathy (7) DVT of lower extremity, bilateral (8) Thrombophlebitis arm (9) Diabetes mellitus (10) Gout (11) HTN (hypertension) (12) Hyperlipidemia Symptom Scale: (1) Shortness of breath 0-10 Scale: Unable to quantify Comment: Trach, Back on mechanical ventilation 04/26/17 . . (2) Debility 0-10 Scale: Unable to quantify Comment: Progressive. . (3) Pain 0-10 Scale: Unable to quantify Comment: History of falls, gout, arthritis, and currently bedbound. . Pertinent Non-Medical Issues Psychosocial:Patient was born and raised in [place], [place]. Patient was once for 20 years, now and has 2 adult sons. 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 He recently resigned due to failing health. Spiritual: No hinduism affiliation Legal: Per [place] statutes, in the absence of written advanced directives healthcare proxy decision making falls to the patient's 2 adult children. Patient's son (Davie) lives locally and wishes to participate in the role of the healthcare proxy decision maker. Palliative care has attempted to contact Arnel, has not call back. Patient`s sister Deb and patients brother verbalized that they have been updating Arnel on patient`s medical status. Ethical issues impacting care: No known ethical issues impacting care at this time. . Important Contacts Son-Davie Kerr - SonDanna Kerr- -cell -home Sister-Deb Ptaricio . Prognosis Mr Kerr is a 62 years old male with a past medical history of hypertension, asthma, diabetes, hyperlipidemia, chronic kidney disease and gout. Patient presented to the ED on 01/22/17 complaining of bilateral knee and right arm pain after a mechanical fall 4 or 5 days prior to coming to the ER. Clinical course complicated with increased weakness leading to numerous diagnostic work ups for possible transverse myelitis, DVTs, retroperitoneal hematoma, aspiration pneumonia, intubation x 4 times, septic and hemorrhagic shock requiring support with pressors and multiple pRBC, FFP transfusions as well as platelets and cryo , renal failure requiring hemodialysis and sacral wound Given ongoing comorbidities, and prolonged hospitalization, patient remains at risk for further complications, deterioration and decline. Code Status: Alternative Code (Intubation only ) Plan * Legal decision maker: Patient is incapacitated to make his own decisions, will not regain capacity. According to [place] statutes, health care proxy decision making falls to majority of adult children, he as 2 sons Davie and Arnel. Arnel has opted out of decision making, * Intubation Only * Goals: Left message with son, Davie. Awaiting return call. * CODE STATUS: Intubation Only. He says he is not ready to make other decisions until after he has time to speak with family. We agreed to talk again on for further clarification of goals. My cell number was provided should he have questions in the meantime. SYMPTOMS: * Shortness of breath: Multifactorial. Patient has had aspiration pneumonia. Patient has been intubated 4 times this hospitalization. Patient has a tracheostomy. On duonebs. Patient is also on Hydrocortisone 50mg q 6 hours. Unload Associate following. Trach up-sized to #8. Patient is s/p CT guided thoracentesis 04/13/17. Tobramycin nebs ordered. Patient placed back on mechanical ventilation, was hypoxic 04/26/17. * Pain: Patient presented initially complaining of pain to right wrist and bilateral knees after a mechanical fall. Patient has a history of gout, arthritis, multiple falls and is currently bedbound. Patient on Oxycodone 5mg q 4 hours ATC. Patient on Hydrocortisone. * Debility: Progressive. Patient has had decline in his health for the past 4 months, including progressively increased weakness and difficulty ambulating and prolonged hospitalization with multiple setbacks. Patient remains at high risk for further physical deconditioning and debility. * Palliative care will continue to follow the patient during hospital course as condition evolves, to assist patient/decision-maker with understanding of their medical conditions, weighing benefits/burdens of treatment options, for clarification of goals of treatment. Additionally will assist with any symptoms of palliative concern. . Attestation To help prompt me to consider important information that might be impacting today's encounter and assessment, information from prior notes written by myself or my colleagues may have been "brought forward" into today's note. My signature on this note, however, is an attestation that I personally performed the exam, history, and/or decision-making noted today, and, unless otherwise indicated, the interactions with patient, family, and staff as well as the review of records all occurred today. I also attest that the listed assessment and stated plan reflect my best clinical judgment today based on the combination of historical information, prior notes, and today's exam/ interactions. When time spent is documented, it refers only to time spent today by the signer, or if indicated, combined time spent today by collaborating physician/nurse practitioner. Veronica Marie May 09, 2017 17:26
--- NOTE | 2017-05-09 17:30 | HHI.CCPN ---
Subjective Remarks/Hospital Course Date of admission: 01/22 Date of critical care medicine consult 02/10 due to acute hypoxemic respiratory failure requiring emergent intubation 62-year-old male with a past medical history of hypertension, hyperlipidemia, diabetes mellitus, gout, uric acid kidney stones, kidney disease of unknown stage who originally presented to [facility] emergency department on 01/22 after a fall in which he sustained a right distal ulna fracture. He had been experiencing a gradual primarily lower extremity weakness as well as upper extremity weakness that was progressive. Neurology consult was obtained. MRI revealed no acute stroke. He had multifocal white matter changes. Tiny lacunar infarcts of the brainstem. Lumbar MRI report states L4-L5 disc protrusion with cetnral canal stenosis. Dr. Blackwell evaluated and states no cord compression on MRI C/T spine and recommended nonoperative management. Symptoms were felt to be consistent with transverse myelitis and he underwent Solumedrol 250 mg IV q6 hours 01/27-02/02. He also was found to have occlusive thrombus in the bilateral posterior tibial veins. Heparin was being avoided because he had traumatic lumbar puncture on 01/26 and 02/01. IVC filter was placed 01/25. He was undergoing physical therapy, reportedly making some improvements with plan to eventually discharged home with his son (max assist standing, and bed to chair per PT note). Apparently he had some vomiting the evening of 02/09 and additional vomiting on 02/10. He had a fever 102.8 on 02/09. Last recorded bowel movement was 02/03. Tonight he had acute onset of severe hypoxemia and respiratory distress. [facility] called and he was brought emergently to [facility] where his sats were 64% on 100% nonrebreather with mean arterial pressure 44. He was emergently intubated, CVL and art line placed. He is in septic shock. SUBJ: 02/11: Patient remains intubated sedated, critically ill. FiO2 reduced to 80% after increasing PEEP to 12. In severe septic shock Levophed at 16 mcg/m, vasopressin at 0.04 international units. D/W vascular surgery Dr. Enciso. He performed bedside Left upper extremity incision and debridement and excision of septic cephalic vein. 02/12: Remains intubated sedated profoundly septic, in shock on vasopressin and 7 mcg/min Levophed. FiO2 has improved to 45%, WBC count remains elevated with 20 ,000 white count significant left shift. Slight improvement in creatinine 2.9 urine output 750 ml 24 hours. 2-D echo shows LV ejection fraction 20-25%, no vegetation reported. Blood cultures 4 staph aureus. Wound culture pending 02/13: Remains critically ill but stable to improving. WBC count is down to 16, creatinine improving to 2.36. Off all pressors. Urine output also improving. 1.5L in 24 hours 02/14: Extubated 02/13. Tolerating well. WBC now down to 12.8. Creat improving 2.3 to 2. UO 3.4L. remains off all pressors. Was started on Precedex yesterday night for agitation, currently on 0.5 g per KG per hour. Chest x-ray shows left more than right air space disease 02/20/17 Re consult: 62-year-old male who was originally admitted for lower extremity weakness and found to have what was thought to be possible transverse myelitis. His hospital course his included a healthcare associated pneumonia, septic thrombophlebitis, DVT. He was most recently in the hospital floor where he had significant nausea and vomiting and diarrhea. His C. difficile test was recently negative. However, he has experienced worsening acute on chronic renal failure, hypotension, tachycardia, and severe hypoxemia. He did have a bout of vomiting earlier today, and his hospitalist attending suspects that he may have aspirated. He arrives by rapid response to the ICU with a nonrebreather in place in severe respiratory distress with SPO2 of 85%. I emergently intubate the patient, see separate procedure note for details. At this point the patient was hypotensive and tachycardic. He does have a history of an EF of 20%, however clinically he appears in florid septic shock. I placed central line and arterial line started vasopressors and gentle IV fluid resuscitation with 1 L of LR. Patient today was empirically broadened to vancomycin and Zosyn from his oxacillin which was initially treating MSSA bacteremia. He is recultured. Critical-care medicine is consulted to evaluate and manage his worsening multiorgan system failure and decompensated septic shock 02/21: Patient remains intubated sedated. Becomes anxious tachypnea on sedation lightening. Chest x-ray shows mild left lower lobe infiltrate. WBC count is slightly improved today from 23.2 t0 21. C Diff negative. UO adequate, creat slightly worsening. 1.57 today 02/22: Remains intubated sedated tolerated CPAP yesterday, plan is for EGD/ Colonscopy. WBC count back to normal. UO adequate. Creat stable 02/23: Tolerating CPAP trials following commands. Will do a spontaneous breathing trials. Status post EGD colonoscopy yesterday -Gastritis, esophagitis. Diverticulosis and multiple polyps. Urine output adequate but creatinine increasing to 1.7 with patient requiring multiple straight catheterization. We'll reinsert Sloan. 02/24: Breathing comfortably 24 hours after extubation. Protects airway well. 02/25: Excoriate bottom, will place rectal FMS. Start pureed diet. 02/26: Afebrile. Complaining of nausea and vomiting this afternoon. Increased stool output. Continue potassium replacement today. 02/27: 10 PM overnight, acutely hypotensive. Received 3 units PRBCs. Antibiotic coverage broadened to piperacillin/tazobactam, cortisol and 1 dose of vancomycin. Oxacillin drip currently on hold. Symptomatically, patient continues to vague abdominal pain/nausea vomiting which is unchanged for the past several days. Lipase elevated yesterday. Lactic acid normal. Troponin normal. Urinary retention after removal of Sloan. Straight catheter 1300. Cc 02/28: New diagnosis large retroperitoneal hematoma. Received 10 PRBC, 14 FFP, 2 platelets, 1 cryo-, 6 g calcium chloride, 2 is magnesium sulfate and 4 mg Bumex. CTA abdomen revealed possible arterial bleeds iliac, lumbar. Patient is currently on norepinephrine and epinephrine drips and possible need right nephrostomy tube placement due to large hematoma compressing ureter. Intra-abdominal bladder pressures are currently 13 03/01: Afebrile. Received 25 g albumin and 1 unit PRBCs overnight. Intra- abdominal bladder pressures currently 19. Currently on 3 micrograms per minute of norepinephrine. [id number] 1 out of 4 on 4 mics grams per kilogram per minute of cisatracurium. 03/02: Slightly hypothermic overnight. Hemoglobin appears to have stabilized. Troponin bump overnight likely secondary to demand ischemia from hypotension. Hemodynamically stable off all vasopressors. 03/03: Received 1 PRBCs overnight. 3 units currently. Off all vasopressors. Likely rebleeding. Stool is dark. 03/04: Remains unstable. Ventilator dependent. 03/05: afebrile. hgb stable. 03/06: bumex drip started overnight. good uop after bumex initiated. still grossly volume overloaded. Cr downtrending. more awake with transition to propofol. still too volume overloaded to tolerate extubation. hgb stable. 03/07: Afebrile. Tolerating tube feeds at goal with Nepro. Positive BM. On low-dose fentanyl and propofol drips. Potassium currently being replaced. 03/08: Eyes will open on ventilator. Afebrile. Tolerating tube feeding. Failed PSV trial yesterday due to apnea. 03/09: Following commands. Tmax 101. Tolerating tube feeding. One hour PSV trial yesterday. Currently tolerating well so far today 1.5 hours 03/10: Low-grade temperatures. Tolerating PSV trial 10 hours yesterday. Currently at 5/5 at 35%. We'll probably attempt extubation a.m. after hemodialysis. 03/11: Extubated currently in 4 L nasal cannula. Thick secretions thick clear with cough. Currently afebrile. Tolerating diet previously. 03/12: Sleepy this morning but arouses. Following commands. Refusing diet at the present time. On 2 L nasal cannula. 03/13: Patient reintubated last night for worsening respiratory status. Currently sedated on mechanical ventilation. Became hypotensive following intubation and is on Levophed 20 mics per minute. 03/14: Sedated, orally intubated on mech vent at the time of my evaluation this AM, subsequently underwent perc trach placement. Remains on levophed for pressor support. Transfused 1 unit PRBCs today. Persisten 03/15: Trach site clean, dry. CXR with bilateral basilar infiltrates. 03/16: Pulmonary congestion persists. Clinical condition not improving. Prognosis becoming increasingly bleak. 03/17: Glucose intolerance worse. No improvement in neurological function. 03/18: Remains on mechanical ventilation via tracheostomy. Off pressors now. Neurologic status remains poor. 03/19: Drowsy, encephalopathic, arousable. On mechanical ventilation via tracheostomy. Levemir increased for hyperglycemia today. Remains off pressors 03/20: More awake, moves both upper extremities. On mechanical ventilation via tracheostomy. Daily C Pap trials ongoing. 03/21: Awake and alert. On mechanical ventilation via tracheostomy. Opens and closes eyes on command. 03/22: Awake and alert. Tolerated T PIECE for 7 hours yesterday. Dialyzed today. 03/23: Currently on T piece trial. Status post dialysis yesterday on 3 L. Awake and alert. Wants to eat. 03/24: Currently afebrile. Hemodialysis catheter discontinued yesterday from left IJ. Persistent leukocytosis noted. Potassium will be replaced. Furosemide 40 mg twice a day IV to 20 mg IV twice a day 03/25: WBC count unchanged. Patient on T piece with humidified air greater than 48 hours, tolerating it well. Reconsulted 04/12: The patient was transferred emergently from the floor/ [facility]. Patient was initially seen by mud jack operator Dr. Estrada, and the patient was noted to be tachypneic on T piece of 40%. ABGs were performed which showed a PaO2 of 60 on T piece of FiO2 of 40%. Chest x-ray was performed which showed loss of entire left hemidiaphragm assistant surveyor consolidation in the left lower lobe. Concern for mucus plugging versus fluid. The patient was transferred emergently to [facility] [place] on a ventilator CT of the chest is pending. Upon arrival in the room the patient is alert and oriented, mouthing words, nodding head to yes and no questions O2 sat is 100% but patient is currently on mechanical ventilation. Currently in no respiratory distress. 04/13: Tmax 99.8. The patient's oxygen requirements have decreased currently FiO2 35% with a PaO2 1 blood gas of 85, O2 saturation 100%. No respiratory distress noted. Patient underwent CT of the chest yesterday noted pleural effusions left greater than right, diagnostic/and therapeutic CT thoracentesis plan for this a.m.. 04/14: Patient underwent CT-guided thoracentesis of the right side with approximately 600 cc withdrawn. Today mud jack operator Dr. LABOY in and up size indwelling 6.0 Shiley to a 8.0 Shiley. Minimal bleeding noted around the site. X-ray improving. Patient started on CPAP trials today, as well as tube feeds were initiated. 04/15: Placed on T piece this morning via tracheostomy. Appears to be tolerating it. Laying in bed not in any acute distress. 04/16: Awake and alert. Tolerating T piece. Tolerating PEG feeds. 04/17: Awake and alert. Tolerating T piece. Tolerating tube feeds via PEG 04/18: Awake and alert. Tolerating TPs. Tolerating tube feeds. Passed swallow eval 04/19: Awake and alert. Remains on T piece. Wants to move out of ICU as he indicates to me once again as he has for the past few days. Awaiting CIC bed 04/20: Awake and alert. Remains on T piece. Developed hypotension last night for which she was transiently on Levophed however has been off since early this morning. ID adjusting antibiotics and working up for new sepsis. 04/21: Awake and alert. On T piece. Awaiting CIC bed for the last few days. 04/22: Awake and alert. Remains on T piece. Received 500 cc normal saline this morning for tachycardia. 04/23 No events overnight. Remains on TP's with 35% FIO2. Afebrile. 04/24: Resting comfortably. Got short of breath with Passy-Rafy valve which was taken off. 04/25: Remains on T piece. Awaiting transfer out of ICU. 04/26: Remains on T piece. Still awaiting transfer out of ICU since 04/17. 04/27 Patient became hypotensive, bradycardic and hypoxic, ABG on TP's last night showed acute hypercapnic resp acidosis (PH 7.10, CO2: 80) he was subsequently placed on mechanical ventilator. Patient was given Albumin, 2u PRBC and started on Levophed 3mics. Renal function worse today with Cr: 1.53 from 1.13 04/28 No events overnight off Levophed since yesterday. On no sedation. Afebrile. 04/29 Patient is on ventilator via trach. T;100.4 04/30 Patient remains on ventilator via trach. Afebrile. 05/01 No events overnight. Afebrile. 05/02 No events overnight. On ventilator via trach. T: 100.1 last night. 05/03 Patient remains on ventilator via trach. 05/04 No events overnight. Afebrile. Tolerating tube feeds. 05/05: more hypoxic this morning with increased secretions. fio2 rising. ID on board. leukocytosis persists. 05/06: continues to clinically decline. hypotensive and anemic. no evidence of GI bleeding, but acute drop in hgb. no uop overnight. restarted norepinephrine this morning. 2 units prbc ordered. recultured. had discussion with his son: with recurrent bleeding and worsening septic shock, unlikely to survive this hospital stay. son continues to press for aggressive measures. 05/07: continues to worsen overall. mental status still declining. off vasopresors this morning, but kidney injury worsening. wbc uptrending. ID still involved. hgb stabilized. likely too unstable for travel to CT scan. Palliative re-engaged to have further discussions with Son. I spoke with him yesterday, and Dr. Hogan spoke with him again overnight. likely poor prognosis at this point. 05/08: no improvements or changes. off vasopressors. renal function continues to worsen. 05/09: BREEZY worsening. no need for acute CIGAR PATCHER at this time. no changes. remains off pressors. wbc slightly downtrended. overall poor prognosis. palliative still involved. Objective Vital Signs Date Time Temp Pulse Resp B/P (MAP) Pulse Ox O2 Delivery O2 Flow Rate FiO2 05/09/17 14:46 98 35 05/09/17 14:01 72 10 138/71 (93) 05/09/17 12:12 97.4 Intake and Output 05/09/17 05/09/17 05/10/17 08:00 16:00 00:00 Intake Total 1181 ml Output Total 350 ml Balance 831 ml Result Diagram: 05/09/17 0530 05/09/17 0530 Imaging Last Impressions Chest X-Ray 05/03/17 0000 Signed Impressions: Service Date/Time: April 10:19 - CONCLUSION: 1. Poor lung aeration 2. Interstitial vascular prominence 3. Significant left lung opacity characteristic of moderate pleural effusion and underlying basilar air space disease. Lenny Ware MD Thoracentesis 04/13/17 1054 Signed Impressions: Service Date/Time: Thursday, April 13, 2017 15:26 - CONCLUSION: Uncomplicated CT-guided right thoracentesis. Candido Mendoza Jr., MD Chest CT 04/12/17 1558 Signed Impressions: Service Date/Time: March 17:51 - CONCLUSION: 1. Slight increase in size of bilateral effusions and basilar atelectasis, left greater than right compared with February 27. Tracheostomy in good position. Trace Holloway MD Renal Ultrasound 04/02/17 0000 Signed Impressions: Service Date/Time: Sunday, April 02, 2017 16:59 - CONCLUSION: Limited exam with the left kidney being unable to be evaluated in the bladder not distended. There do appear to be multiple shadowing stones at the right kidney without hydronephrosis. Angelo Manzo MD Wrist X-Ray 03/27/17 0000 Signed Impressions: Service Date/Time: Monday, March 27, 2017 13:21 - CONCLUSION: 1. No acute fracture is identified. A portion of the previously documented distal ulna fracture remains visualized. 2. 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 Angelo Allen MD Aortography 02/28/17 0000 Signed Impressions: Service Date/Time: Tuesday, February 28, 2017 08:01 - CONCLUSION: 1. Active hemorrhage from distal right lateral sacral and iliolumbar branches successfully coil and Gelfoam embolized, as above. Juan Bhakta MD Abdomen/Pelvis CT 02/28/17 0000 Signed Impressions: Service Date/Time: Tuesday, February 28, 2017 06:51 - CONCLUSION: 1. The right retroperitoneal hematoma has increased in size, as above. There are 2 serpiginous arterially enhancing structures visualized, one in the right psoas muscle and another extending into the hematoma at the right iliac fossa. These could represent sites of continued active bleeding. 2. Stable moderate size left and small right pleural effusion with associated compressive atelectasis. 3. Stable small volume of free fluid in the abdomen and pelvis. There is also anasarca. The findings concerning the retroperitoneal hematoma were discussed with Dr. Agiuar via telephone at approximately 7: 10 AM on 02/28/2017. Angelo Allen MD Abdomen X-Ray 02/26/17 0000 Signed Impressions: Service Date/Time: Sunday, February 26, 2017 14:52 - CONCLUSION: 1. Nonobstructive bowel gas pattern. Juan Bhakta MD Upper Extremity Ultrasound 02/10/17 0000 Signed Impressions: Service Date/Time: Friday, February 10, 2017 18:46 - CONCLUSION: Occlusive thrombus in the cephalic and basilic veins. Benjamin Person MD Lung Scan- Nuclear Medicine 02/10/17 0000 Signed Impressions: Service Date/Time: Friday, February 10, 2017 22:17 - CONCLUSION: Low probability pulmonary embolism. Candido Patton MD Head CT 02/10/17 Signed Impressions: Service Date/Time: Friday, February 10, 2017 23:51 - CONCLUSION: Negative noncontrast CT brain. Candido Patton MD Lumbar Puncture Fluoroscopy 02/01/17 Signed Impressions: Service Date/Time: January 09:35 - CONCLUSION: Uncomplicated fluoroscopically guided lumbar puncture. CSF was clear. Nabeel Peralta MD Head Magnetic Resonance Angiography 01/27/17 Signed Impressions: Service Date/Time: Friday, January 27, 2017 10:33 - CONCLUSION: No intracranial vascular abnormality is identified. There is no aneurysm visualized. Angelo Allen MD IVC Filter Placement X-Ray 01/25/17 Signed Impressions: Service Date/Time: January 10:29 - CONCLUSION: Uncomplicated inferior vena cava filter placement as above. Yung Fowler MD Thoracic Spine MRI 01/24/17 Signed Impressions: Service Date/Time: Tuesday, January 24, 2017 22:29 - CONCLUSION: 1. Mild degenerative spondylosis most prominently at T11-L1 with slight effacement of the anterior thecal sac and left lateral recess. No significant neural foraminal stenosis. 2. No acute fracture. Juan Bhakta MD Lumbar Spine MRI 01/23/17 Signed Impressions: Service Date/Time: Monday, January 23, 2017 17:01 - CONCLUSION: 1. At L4-5 is a broad-based disc protrusion with severe central canal and lateral recess stenosis and flattening of the exiting right L4 nerve root. 2. L5-S1 there is a disc protrusion and moderate stenosis with flattening of the exiting L5 nerve roots bilaterally. 3. At L3-4 there is a moderate to severe central stenosis and lateral recess stenosis with mild foraminal stenosis. 4. No acute fracture or spondylolisthesis. Trace Holloway MD Lower Extremity Ultrasound 01/23/17 Signed Impressions: Service Date/Time: Monday, January 23, 2017 09:53 - CONCLUSION: Bilateral focal lower extremity DVT involving the posterior tibial veins. Angelo Garrido MD Cervical Spine MRI 9/5/17 0000 Signed Impressions: Service Date/Time: Monday, January 23, 2017 17:01 - CONCLUSION: 1. Multilevel cervical spine degenerative changes as above. 2. Mild degrees of spinal stenosis at C3/C4-C6/C7. No cord compression or cord signal abnormality. 3. Age indeterminate left paracentral/foraminal disc protrusion at C6/C7. 4. Multilevel foraminal stenosis, most severe on the left at C6/C7. Please see individual levels above. 5. No fracture or subluxation of the cervical spine. Angelo Garrido MD Brain MRI 01/23/17 0000 Signed Impressions: Service Date/Time: Monday, January 23, 2017 17:01 - CONCLUSION: 1. No acute stroke or other acute intracranial abnormality demonstrated. 2. Moderate severity chronic white matter changes, nonspecific but most likely related to chronic small vessel disease. 3. Few scattered tiny lacunar infarcts of the brainstem. 4. Given the findings are not entirely specific, clinical evaluation for possible multiple sclerosis recommended. Angelo Garrido MD Knee X-Ray [id number]/[id number] Signed Impressions: Service Date/Time: Sunday, January 22, 2017 21:17 - CONCLUSION: 1. Evidence of moderate to large joint effusion. 2. No acute fracture or malalignment. 3. Mild 3 compartment osteoarthritic change. Benjamin Person MD Hip and Pelvis X-Ray [id number] Signed Impressions: Service Date/Time: Sunday, January 22, 2017 21:10 - CONCLUSION: 1. Mild to moderate degenerative change of both hips with no acute fracture or malalignment. There is flattening and remodeling of the right humeral head. Benjamin Person MD Objective Remarks GENERAL: 62-year-old male, resting in bed, on mechanical ventilation via trach HEENT: Normocephalic. Atraumatic. Pupils equal, round, reactive. NECK: Tracheostomy in place CHEST: b/l equal air entry CARDIOVASCULAR: normal rate, regular rhythm. ABDOMEN distended. No rigidity. Umbilical hernia is reducible. No guarding. PEG tube in place : Positive scrotal edema Sloan in situ MUSCULOSKELETAL: Pulses 2+. 1+ bilateral upper and lower extremity edema. NEUROLOGICAL: RASS -3. obtunded. weakly withdraws to pain x 4. Procedures 01/25/2017- Retrievable IVC Filter placement 01/26/17-lumbar puncture with fluoroscopy-by interventional radiology 02/01/17- lumbar puncture fluoroscopy by interventional radiology 02/10/17- Endotracheal Intubation 02/10/17-left IJ central venous line placed 02/10/17-left femoral arterial line placed 02/11/17-Diagnostic and therapeutic bronchoscopy with bronchoalveolar lavage 02/11/17-Left upper extremity incision and debridement with excision of septic cephalic vein 02/13/17- Extubated 02/20/17- endotracheal intubation 02/20/17- Left subclavian central line placement 02/20/17-Right radial A-line placement 02/22/17-EGD/colonoscopy 02/28/17-right radial a line 02/28/17- Endotracheal intubation 02/28/17- right sided introducer catheter placement 02/28/17- Right IJ central line placement 02/28/17-Right chest tube placement 02/28/17- Embolization of inferior and superior sacral branches of right internal iliac artery 03/01/17- Hemodialysis access catheter 03/03/17-Right IJ central line placement 03/11/17-Extubated 03/13/17- Endotracheal intubation 03/14/17-Tracheostomy placement, trach downsized to 6.0 Anni 03/30/17 03/15/17-PEG tube placement 04/11/17-CT Chest 04/13/17-thoracentesis right 600 cc removed A/P Problem List: (1) Septic shock ICD Code: A41.9 - Sepsis, unspecified organism; R65.21 - Severe sepsis with septic shock Status: Acute (2) Acute respiratory failure ICD Code: J96.00 - Acute respiratory failure, unspecified whether with hypoxia or hypercapnia Status: Chronic (3) Thrombophlebitis arm ICD Code: I80.8 - Phlebitis and thrombophlebitis of other sites (4) Aspiration pneumonia ICD Code: J69.0 - Pneumonitis due to inhalation of food and vomit Status: Acute (5) Atelectasis of left lung ICD Code: J98.11 - Atelectasis Status: Acute (6) Quadriparesis ICD Code: G82.50 - Quadriplegia, unspecified Status: Acute (7) DVT (deep venous thrombosis) ICD Code: I82.409 - Acute embolism and thrombosis of unspecified deep veins of unspecified lower extremity (8) Altered mental status ICD Code: R41.82 - Altered mental status, unspecified Status: Acute (9) CKD (chronic kidney disease) stage 3, GFR 30-59 ml/min ICD Code: N18.3 - Chronic kidney disease, stage 3 (moderate) Status: Chronic (10) Acute renal failure ICD Code: N17.9 - Acute kidney failure, unspecified Status: Acute (11) Diabetes mellitus ICD Code: E11.9 - Type 2 diabetes mellitus without complications Status: Chronic (12) Distal end of ulna fracture, closed ICD Code: S52.609A - Unspecified fracture of lower end of unspecified ulna, initial encounter for closed fracture Status: Acute (13) Gout ICD Code: M10.9 - Gout, unspecified Status: Chronic Assessment and Plan Assessment: 62yM with chronic multi-organ dysfunction now with recurrent septic shock. hgb stable, active bleeding has appeared to stop at this point. goals remain aggressive, although DNR code status. no improvements. renal function worsens: poor candidate for recurrent acute renal replacement therapy. overall poor prognosis. NEURO/PSYCH: Acute metabolic encephalopathy- persistent, worsening this morning. Quadriparesis secondary to suspected transverse myelitis Recurrent falls On no sedation. Monitor neuro status. Suspected transverse myelitis. Received methylprednisolone 250 mg IV every 6 hours 01/27-02/02, started back on hydrocortisone 02/21/17, initially tapering to 50 mg IV every 8 hours starting received 1 dose at 2100 prior to becoming hypotensive. weaning hydrocortisone taper and stopped 03/09. Resumed hydrocortisone 50mg IV Q6hrly on 03/14 as patient became hypotensive following intubation on 03/13 requiring levophed. LP 01/26 and 02/01. CSF culture negative 01/26, 02/01 Oligoclonal bands negative. CSF/serum IgG index is not elevated. VDRL nonreactive. Cryptococcal antigen negative. Brain MRI 01/23 no acute stroke. Few scattered lacunar infarcts of the brainstem. Moderate chronic white matter changes. MRI cervical/thoracic spine- mild spinal stenosis C3/C4 to C6/C7. No cord compression. RPR negative Neurology has been following, Dr. Crenshaw. Repeat CT brain 02/10 - negative Continue PT/OT oxycodone 5mg po q4h scheduled hydrocortisone taper. RESP: Acute hypoxemic respiratory failure - persistent. Healthcare associated pneumonia/Aspiration Pneumonia - recurrent. S/P Right-sided chest tube 02/28 Continue with vent support keep sat >92% Bronchodilators, pulm toilet, trach care s/p perc tracheostomy 03/14. Pulmonology following Dr. Estrada 04/13 CT guided thoracentesis scheduled emergently as discussed with Dr. 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 2-D echocardiogram 01/11 revealed EF 20-25%. Mild TR. Pulmonary arterial pressures were normal around 20 GI: Large right retroperitoneal hematoma - resolved. Erosive esophagitis Adenomatous/hyperplastic colon polyps Severe acute protein calorie malnutrition Nausea/vomiting - resolved. Diarrhea Gastritis Diverticulosis Internal and external hemorrhoids Hiatal hernia Elevated lipase On tube feeds-Nepro@ 40ml/hr 02/27 CT chest/abdomen and pelvis - 9.4 x 7.5 renal and 16 x 12 cm right psoas muscle hematoma. Fluid around liver and spleen. Right-sided nephrolithiasis CTA abdomen 02/28 - possible blushing around iliac/lumbar vessels Discussed with IR. s/p attempted embolization CT abdomen and pelvis 02/10 atrophic left kidney. Bilateral inguinal hernias fat- containing. Nonobstructing 12 mm right kidney stone repeat CT abd/pelvis did not show evidence of obstruction. patient clinically has been having diarrhea (c. diff negative 02/19). also with nausea/vomiting of unclear etiology. EGD/Colonoscopy-02/22/17 showed gastritis esophagitis, hiatal hernia, diverticulosis and multiple polyps in descending colon and sigmoid which were snared biopsied. 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 Liao. On Lasix 20mg Q12, IV Albumin RIOS/SPEP negative. 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 Recommended nephrostomy tube if obstruction Nephrology consulted, off hemodialysis. Making urine. ICU electrolyte replacement protocol Last IHD was 03/22 hold free water. ID: Septic shock- recurrent Abscess and Suppurative thrombophlebitis left upper extremity MSSA bacteremia Klebsiella UTI ESBL positive Acute aspiration pneumonia/HCAP 04/27 Sputum cx: Pseudomonas, Urine cx: Ivania Bustillo , BC: 05/24 bottles: Coag negative staph likely contaminant 04/29 BC: NGTD 05/01 Wound cx: Pseudomonas, Group D enterococcus, GNR Previously treated with Bactrim, ertapenem, intermittent vancomycin, nafcillin Blood cultures 2, UA ESBL positive Klebsiella UTI Sputum 03/14 - Pseudomonas came back resistant to imipenem, Stenotrophomonas maltophilia Antibiotics per ID. on Diflucan, Zerbaxa, ID is following. C-diff PCR negative wound service is following. stage IV sacral ulcer, ulcer right ankle/LE reculture. ID on board. leukocytosis slightly improved. HEME: Acute blood loss anemia- worsening. DVT, bilateral posterior tibial vein, IVC filter Septic thrombophlebitis with occlusive thrombus mid cephalic and basilic vein side Monitor CBC s/p transfusion 2units PRBC ( 04/26) Received 10 PRBC, 14 FFP, 2 platelets, 1 cryo-02/28 Received 3 units PRBCs Ultrasound 01/23/17 - Bilateral lower extremity with occlusive posterior tibial vein DVTs. Heparin was initially started for DVT but was placed on hold due to LP with suspected traumatic tap. Currently holding full anticoagulation with enoxaparin 100 mg IV twice a day due to anemia as of 02/26 IVC filter was placed 01/25/17. Ultrasound LUE 02/10 occlusive thrombus mid cephalic vein, basilic vein.s. Transfuse 3 units PRBCs 02/27 Transfuse 2 units PRBCs 03/01. Transfused 1 unit PRBCs on 03/14 transfused 2 units prbc 05/06 daily cbc ENDO: Diabetes mellitus Hypoglycemia History of prior adrenal insufficiency with shock Gout Accu-Cheks to maintain euglycemia Novulin R every 4 hours. Low Regimen MSK: Right distal ulna fracture. Recommended nonoperative management. PROPH: Lansoprazole 30 mg twice a day twice a day for stress ulcer prophylaxis. Has IVC filter. Therapeutic enoxaparin was placed on hold for retroperitoneal hematoma ACCESS: Right subclavian CVP placed 04/27. keep given critical illness and recent vasopressor requirement. Dispo: remain in ICU. critically ill Problem Qualifiers (1) Aspiration pneumonia: (2) DVT (deep venous thrombosis): Qualified Codes: I82.443 - Acute embolism and thrombosis of tibial vein, bilateral (3) Acute renal failure: Qualified Codes: N17.9 - Acute kidney failure, unspecified (4) Diabetes mellitus: (5) Gout: Anthony Rivas MD May 09, 2017 17:30
[2017-05-09] MEDS: ATORVASTATIN 10 MG TAB PO SCH (20:18)
[2017-05-10] VITALS (16 sets, daily range): BP systolic 124–156; BP diastolic 58–73; PULSE 73–101; RESP 13–23; TEMP 96.3–98.2; O2SAT 92–99
[2017-05-10] MEDS: INSULIN NovoLIN REGULAR SUPPLEMENTAL SCALE SQ SCH ×6 (00:05→20:53)
[2017-05-10] MEDS: oxyCODONE HCL ORAL CONC 5 MG/0.25 ML SYRINGE PO SCH ×6 (01:57→20:52)
[2017-05-10] MEDS: ALBUMIN 25% INJ 100 ML IV SCH ×2 (04:23→16:24)
[2017-05-10 05:02] LABS: HEMATOCRIT 28.6 % (39.0-51.0); MEAN CELL VOLUME 85.7 FL (80.0-100.0); MEAN CORPUSCULAR HEMOGLOBIN 26.9 PG (27.0-34.0); MEAN CORPUSCULAR HGB CONC 31.4 % (32.0-36.0); PLATELET COUNT 216 TH/MM3 (150-450); RED BLOOD COUNT 3.33 MIL/MM3 (4.50-5.90); RED CELL DISTRIBUTION WIDTH 17.6 % (11.6-17.2); REVIEW FLAG FINAL; WHITE BLOOD COUNT 23.4 TH/MM3 (4.0-11.0)
[2017-05-10 05:33] LABS: BICARBONATE 15.6 MEQ/L (21.0-32.0); POTASSIUM 3.3 MEQ/L (3.5-5.1)
[2017-05-10] MEDS: HYDROCORTISONE SOD SUCCINATE 100 MG VIAL IV PUSH SCH ×2 (06:30→16:24)
[2017-05-10] MEDS: RESP: ALBUTEROL 2.5 MG/IPRATROPIUM 0.5 MG NEB (PRN) NEB (07:55)
--- NOTE | 2017-05-10 08:54 | HHI.CCPN ---
Subjective Remarks/Hospital Course Date of admission: 01/22 Date of critical care medicine consult 02/10 due to acute hypoxemic respiratory failure requiring emergent intubation 62-year-old male with a past medical history of hypertension, hyperlipidemia, diabetes mellitus, gout, uric acid kidney stones, kidney disease of unknown stage who originally presented to [facility] emergency department on 01/22 after a fall in which he sustained a right distal ulna fracture. He had been experiencing a gradual primarily lower extremity weakness as well as upper extremity weakness that was progressive. Neurology consult was obtained. MRI revealed no acute stroke. He had multifocal white matter changes. Tiny lacunar infarcts of the brainstem. Lumbar MRI report states L4-L5 disc protrusion with cetnral canal stenosis. Dr. Blackwell evaluated and states no cord compression on MRI C/T spine and recommended nonoperative management. Symptoms were felt to be consistent with transverse myelitis and he underwent Solumedrol 250 mg IV q6 hours 01/27-02/02. He also was found to have occlusive thrombus in the bilateral posterior tibial veins. Heparin was being avoided because he had traumatic lumbar puncture on 01/26 and 02/01. IVC filter was placed 01/25. He was undergoing physical therapy, reportedly making some improvements with plan to eventually discharged home with his son (max assist standing, and bed to chair per PT note). Apparently he had some vomiting the evening of 02/09 and additional vomiting on 02/10. He had a fever 102.8 on 02/09. Last recorded bowel movement was 02/03. Tonight he had acute onset of severe hypoxemia and respiratory distress. [facility] called and he was brought emergently to [facility] where his sats were 64% on 100% nonrebreather with mean arterial pressure 44. He was emergently intubated, CVL and art line placed. He is in septic shock. SUBJ: 02/11: Patient remains intubated sedated, critically ill. FiO2 reduced to 80% after increasing PEEP to 12. In severe septic shock Levophed at 16 mcg/m, vasopressin at 0.04 international units. D/W vascular surgery Dr. Enciso. He performed bedside Left upper extremity incision and debridement and excision of septic cephalic vein. 02/12: Remains intubated sedated profoundly septic, in shock on vasopressin and 7 mcg/min Levophed. FiO2 has improved to 45%, WBC count remains elevated with 20 ,000 white count significant left shift. Slight improvement in creatinine 2.9 urine output 750 ml 24 hours. 2-D echo shows LV ejection fraction 20-25%, no vegetation reported. Blood cultures 4 staph aureus. Wound culture pending 02/13: Remains critically ill but stable to improving. WBC count is down to 16, creatinine improving to 2.36. Off all pressors. Urine output also improving. 1.5L in 24 hours 02/14: Extubated 02/13. Tolerating well. WBC now down to 12.8. Creat improving 2.3 to 2. UO 3.4L. remains off all pressors. Was started on Precedex yesterday night for agitation, currently on 0.5 g per KG per hour. Chest x-ray shows left more than right air space disease 02/20/17 Re consult: 62-year-old male who was originally admitted for lower extremity weakness and found to have what was thought to be possible transverse myelitis. His hospital course his included a healthcare associated pneumonia, septic thrombophlebitis, DVT. He was most recently in the hospital floor where he had significant nausea and vomiting and diarrhea. His C. difficile test was recently negative. However, he has experienced worsening acute on chronic renal failure, hypotension, tachycardia, and severe hypoxemia. He did have a bout of vomiting earlier today, and his hospitalist attending suspects that he may have aspirated. He arrives by rapid response to the ICU with a nonrebreather in place in severe respiratory distress with SPO2 of 85%. I emergently intubate the patient, see separate procedure note for details. At this point the patient was hypotensive and tachycardic. He does have a history of an EF of 20%, however clinically he appears in florid septic shock. I placed central line and arterial line started vasopressors and gentle IV fluid resuscitation with 1 L of LR. Patient today was empirically broadened to vancomycin and Zosyn from his oxacillin which was initially treating MSSA bacteremia. He is recultured. Critical-care medicine is consulted to evaluate and manage his worsening multiorgan system failure and decompensated septic shock 02/21: Patient remains intubated sedated. Becomes anxious tachypnea on sedation lightening. Chest x-ray shows mild left lower lobe infiltrate. WBC count is slightly improved today from 23.2 t0 21. C Diff negative. UO adequate, creat slightly worsening. 1.57 today 02/22: Remains intubated sedated tolerated CPAP yesterday, plan is for EGD/ Colonscopy. WBC count back to normal. UO adequate. Creat stable 02/23: Tolerating CPAP trials following commands. Will do a spontaneous breathing trials. Status post EGD colonoscopy yesterday -Gastritis, esophagitis. Diverticulosis and multiple polyps. Urine output adequate but creatinine increasing to 1.7 with patient requiring multiple straight catheterization. We'll reinsert Sloan. 02/24: Breathing comfortably 24 hours after extubation. Protects airway well. 02/25: Excoriate bottom, will place rectal FMS. Start pureed diet. 02/26: Afebrile. Complaining of nausea and vomiting this afternoon. Increased stool output. Continue potassium replacement today. 02/27: 10 PM overnight, acutely hypotensive. Received 3 units PRBCs. Antibiotic coverage broadened to piperacillin/tazobactam, cortisol and 1 dose of vancomycin. Oxacillin drip currently on hold. Symptomatically, patient continues to vague abdominal pain/nausea vomiting which is unchanged for the past several days. Lipase elevated yesterday. Lactic acid normal. Troponin normal. Urinary retention after removal of Sloan. Straight catheter 1300. Cc 02/28: New diagnosis large retroperitoneal hematoma. Received 10 PRBC, 14 FFP, 2 platelets, 1 cryo-, 6 g calcium chloride, 2 is magnesium sulfate and 4 mg Bumex. CTA abdomen revealed possible arterial bleeds iliac, lumbar. Patient is currently on norepinephrine and epinephrine drips and possible need right nephrostomy tube placement due to large hematoma compressing ureter. Intra-abdominal bladder pressures are currently 13 03/01: Afebrile. Received 25 g albumin and 1 unit PRBCs overnight. Intra- abdominal bladder pressures currently 19. Currently on 3 micrograms per minute of norepinephrine. Oatnp-ln-wpmx 1 out of 4 on 4 mics grams per kilogram per minute of cisatracurium. 03/02: Slightly hypothermic overnight. Hemoglobin appears to have stabilized. Troponin bump overnight likely secondary to demand ischemia from hypotension. Hemodynamically stable off all vasopressors. 03/03: Received 1 PRBCs overnight. 3 units currently. Off all vasopressors. Likely rebleeding. Stool is dark. 03/04: Remains unstable. Ventilator dependent. 03/05: afebrile. hgb stable. 03/06: bumex drip started overnight. good uop after bumex initiated. still grossly volume overloaded. Cr downtrending. more awake with transition to propofol. still too volume overloaded to tolerate extubation. hgb stable. 03/07: Afebrile. Tolerating tube feeds at goal with Nepro. Positive BM. On low-dose fentanyl and propofol drips. Potassium currently being replaced. 03/08: Eyes will open on ventilator. Afebrile. Tolerating tube feeding. Failed PSV trial yesterday due to apnea. 03/09: Following commands. Tmax 101. Tolerating tube feeding. One hour PSV trial yesterday. Currently tolerating well so far today 1.5 hours 03/10: Low-grade temperatures. Tolerating PSV trial 10 hours yesterday. Currently at 5/5 at 35%. We'll probably attempt extubation a.m. after hemodialysis. 03/11: Extubated currently in 4 L nasal cannula. Thick secretions thick clear with cough. Currently afebrile. Tolerating diet previously. 03/12: Sleepy this morning but arouses. Following commands. Refusing diet at the present time. On 2 L nasal cannula. 03/13: Patient reintubated last night for worsening respiratory status. Currently sedated on mechanical ventilation. Became hypotensive following intubation and is on Levophed 20 mics per minute. 03/14: Sedated, orally intubated on mech vent at the time of my evaluation this AM, subsequently underwent perc trach placement. Remains on levophed for pressor support. Transfused 1 unit PRBCs today. Persisten 03/15: Trach site clean, dry. CXR with bilateral basilar infiltrates. 03/16: Pulmonary congestion persists. Clinical condition not improving. Prognosis becoming increasingly bleak. 03/17: Glucose intolerance worse. No improvement in neurological function. 03/18: Remains on mechanical ventilation via tracheostomy. Off pressors now. Neurologic status remains poor. 03/19: Drowsy, encephalopathic, arousable. On mechanical ventilation via tracheostomy. Levemir increased for hyperglycemia today. Remains off pressors 03/20: More awake, moves both upper extremities. On mechanical ventilation via tracheostomy. Daily C Pap trials ongoing. 03/21: Awake and alert. On mechanical ventilation via tracheostomy. Opens and closes eyes on command. 03/22: Awake and alert. Tolerated T PIECE for 7 hours yesterday. Dialyzed today. 03/23: Currently on T piece trial. Status post dialysis yesterday on 3 L. Awake and alert. Wants to eat. 03/24: Currently afebrile. Hemodialysis catheter discontinued yesterday from left IJ. Persistent leukocytosis noted. Potassium will be replaced. Furosemide 40 mg twice a day IV to 20 mg IV twice a day 03/25: WBC count unchanged. Patient on T piece with humidified air greater than 48 hours, tolerating it well. Reconsulted 04/12: The patient was transferred emergently from the floor/ [facility]. Patient was initially seen by natural gas basis trader Dr. Estrada, and the patient was noted to be tachypneic on T piece of 40%. ABGs were performed which showed a PaO2 of 60 on T piece of FiO2 of 40%. Chest x-ray was performed which showed loss of entire left hemidiaphragm administrative office assistant consolidation in the left lower lobe. Concern for mucus plugging versus fluid. The patient was transferred emergently [place] [facility] on a ventilator CT of the chest is pending. Upon arrival in the room the patient is alert and oriented, mouthing words, nodding head to yes and no questions O2 sat is 100% but patient is currently on mechanical ventilation. Currently in no respiratory distress. 04/13: Tmax 99.8. The patient's oxygen requirements have decreased currently FiO2 35% with a PaO2 1 blood gas of 85, O2 saturation 100%. No respiratory distress noted. Patient underwent CT of the chest yesterday noted pleural effusions left greater than right, diagnostic/and therapeutic CT thoracentesis plan for this a.m.. 04/14: Patient underwent CT-guided thoracentesis of the right side with approximately 600 cc withdrawn. Today natural gas basis trader Dr. LABOY in and up size indwelling 6.0 Shiley to a 8.0 Shiley. Minimal bleeding noted around the site. X-ray improving. Patient started on CPAP trials today, as well as tube feeds were initiated. 04/15: Placed on T piece this morning via tracheostomy. Appears to be tolerating it. Laying in bed not in any acute distress. 04/16: Awake and alert. Tolerating T piece. Tolerating PEG feeds. 04/17: Awake and alert. Tolerating T piece. Tolerating tube feeds via PEG 04/18: Awake and alert. Tolerating TPs. Tolerating tube feeds. Passed swallow eval 04/19: Awake and alert. Remains on T piece. Wants to move out of ICU as he indicates to me once again as he has for the past few days. Awaiting CIC bed 04/20: Awake and alert. Remains on T piece. Developed hypotension last night for which she was transiently on Levophed however has been off since early this morning. ID adjusting antibiotics and working up for new sepsis. 04/21: Awake and alert. On T piece. Awaiting CIC bed for the last few days. 04/22: Awake and alert. Remains on T piece. Received 500 cc normal saline this morning for tachycardia. 04/23 No events overnight. Remains on TP's with 35% FIO2. Afebrile. 04/24: Resting comfortably. Got short of breath with Passy-Rafy valve which was taken off. 04/25: Remains on T piece. Awaiting transfer out of ICU. 04/26: Remains on T piece. Still awaiting transfer out of ICU since 04/17. 04/27 Patient became hypotensive, bradycardic and hypoxic, ABG on TP's last night showed acute hypercapnic resp acidosis (PH 7.10, CO2: 80) he was subsequently placed on mechanical ventilator. Patient was given Albumin, 2u PRBC and started on Levophed 3mics. Renal function worse today with Cr: 1.53 from 1.13 04/28 No events overnight off Levophed since yesterday. On no sedation. Afebrile. 04/29 Patient is on ventilator via trach. T;100.4 04/30 Patient remains on ventilator via trach. Afebrile. 05/01 No events overnight. Afebrile. 05/02 No events overnight. On ventilator via trach. T: 100.1 last night. 05/03 Patient remains on ventilator via trach. 05/04 No events overnight. Afebrile. Tolerating tube feeds. 05/05: more hypoxic this morning with increased secretions. fio2 rising. ID on board. leukocytosis persists. 05/06: continues to clinically decline. hypotensive and anemic. no evidence of GI bleeding, but acute drop in hgb. no uop overnight. restarted norepinephrine this morning. 2 units prbc ordered. recultured. had discussion with his son: with recurrent bleeding and worsening septic shock, unlikely to survive this hospital stay. son continues to press for aggressive measures. 05/07: continues to worsen overall. mental status still declining. off vasopresors this morning, but kidney injury worsening. wbc uptrending. ID still involved. hgb stabilized. likely too unstable for travel to CT scan. Palliative re-engaged to have further discussions with Son. I spoke with him yesterday, and Dr. Hogan spoke with him again overnight. likely poor prognosis at this point. 05/08: no improvements or changes. off vasopressors. renal function continues to worsen. 05/09: BREEZY worsening. 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 no changes. remains off pressors. wbc slightly downtrended. overall poor prognosis. palliative still involved. 05/10 Patient remains on ventilator via trach. Afebrile. Renal function is gradually worsening. TF held overnight for emesis. Objective Vital Signs Date Time Temp Pulse Resp B/P (MAP) Pulse Ox O2 Delivery O2 Flow Rate FiO2 05/10/17 06:00 101 05/10/17 04:01 98.2 14 124/64 (84) 96 05/10/17 04:00 35 Intake and Output 05/10/17 05/10/17 05/11/17 08:00 16:00 00:00 Intake Total 762 ml Output Total 500 ml Balance 262 ml Result Diagram: 05/10/17 0430 05/10/17 0430 Other Results Laboratory Tests Test 05/10/17 04:30 White Blood Count 23.4 TH/MM3 Red Blood Count 3.33 MIL/MM3 Hemoglobin 9.0 GM/DL Hematocrit 28.6 % Mean Corpuscular Volume 85.7 FL Mean Corpuscular Hemoglobin 26.9 PG Mean Corpuscular Hemoglobin Concent 31.4 % Red Cell Distribution Width 17.6 % Platelet Count 216 TH/MM3 Mean Platelet Volume 8.2 FL Blood Urea Nitrogen 127 MG/DL Creatinine 3.02 MG/DL Random Glucose 219 MG/DL Calcium Level 8.2 MG/DL Sodium Level 131 MEQ/L Potassium Level 3.3 MEQ/L Chloride Level 98 MEQ/L Carbon Dioxide Level 15.6 MEQ/L Anion Gap 17 MEQ/L Estimat Glomerular Filtration Rate 21 ML/MIN Imaging Last Impressions Chest X-Ray 05/03/17 0000 Signed Impressions: Service Date/Time: April 10:19 - CONCLUSION: 1. Poor lung aeration 2. Interstitial vascular prominence 3. Significant left lung opacity characteristic of moderate pleural effusion and underlying basilar air space disease. Lenny Ware MD Thoracentesis 04/13/17 1054 Signed Impressions: Service Date/Time: Thursday, April 13, 2017 15:26 - CONCLUSION: Uncomplicated CT-guided right thoracentesis. Candido Mendoza Jr., MD Chest CT 04/12/17 1558 Signed Impressions: Service Date/Time: March 17:51 - CONCLUSION: 1. Slight increase in size of bilateral effusions and basilar atelectasis, left greater than right compared with February 27. Tracheostomy in good position. Trace Holloway MD Renal Ultrasound 04/02/17 0000 Signed Impressions: Service Date/Time: Sunday, April 02, 2017 16:59 - CONCLUSION: Limited exam with the left kidney being unable to be evaluated in the bladder not distended. There do appear to be multiple shadowing stones at the right kidney without hydronephrosis. Angelo Manzo MD Wrist X-Ray 03/27/17 0000 Signed Impressions: Service Date/Time: Monday, March 27, 2017 13:21 - CONCLUSION: 1. No acute fracture is identified. A portion of the previously documented distal ulna fracture remains visualized. 2. 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 Angelo Allen MD Aortography 02/28/17 0000 Signed Impressions: Service Date/Time: Tuesday, February 28, 2017 08:01 - CONCLUSION: 1. Active hemorrhage from distal right lateral sacral and iliolumbar branches successfully coil and Gelfoam embolized, as above. Juan Bhakta MD Abdomen/Pelvis CT 02/28/17 0000 Signed Impressions: Service Date/Time: Tuesday, February 28, 2017 06:51 - CONCLUSION: 1. The right retroperitoneal hematoma has increased in size, as above. There are 2 serpiginous arterially enhancing structures visualized, one in the right psoas muscle and another extending into the hematoma at the right iliac fossa. These could represent sites of continued active bleeding. 2. Stable moderate size left and small right pleural effusion with associated compressive atelectasis. 3. Stable small volume of free fluid in the abdomen and pelvis. There is also anasarca. The findings concerning the retroperitoneal hematoma were discussed with Dr. Aguiar via telephone at approximately 7: 10 AM on 02/28/2017. Angelo Allen MD Abdomen X-Ray 02/26/17 Signed Impressions: Service Date/Time: Sunday, February 26, 2017 14:52 - CONCLUSION: 1. Nonobstructive bowel gas pattern. Juan Bhakta MD Upper Extremity Ultrasound 02/10/17 0000 Signed Impressions: Service Date/Time: Friday, February 10, 2017 18:46 - CONCLUSION: Occlusive thrombus in the cephalic and basilic veins. Benjamin Person MD Lung Scan- Nuclear Medicine 02/10/17 0000 Signed Impressions: Service Date/Time: Friday, February 10, 2017 22:17 - CONCLUSION: Low probability pulmonary embolism. Candido Patton MD Head CT 02/10/17 0000 Signed Impressions: Service Date/Time: Friday, February 10, 2017 23:51 - CONCLUSION: Negative noncontrast CT brain. Candido Patton MD Lumbar Puncture Fluoroscopy 02/01/17 0000 Signed Impressions: Service Date/Time: January 09:35 - CONCLUSION: Uncomplicated fluoroscopically guided lumbar puncture. CSF was clear. Nabeel Peralta MD Head Magnetic Resonance Angiography 01/27/17 0000 Signed Impressions: Service Date/Time: Friday, January 27, 2017 10:33 - CONCLUSION: No intracranial vascular abnormality is identified. There is no aneurysm visualized. Angelo Allen MD IVC Filter Placement X-Ray 01/25/17 0000 Signed Impressions: Service Date/Time: January 10:29 - CONCLUSION: Uncomplicated inferior vena cava filter placement as above. Yung Fowler MD Thoracic Spine MRI 01/24/17 0000 Signed Impressions: Service Date/Time: Tuesday, January 24, 2017 22:29 - CONCLUSION: 1. Mild degenerative spondylosis most prominently at T11-L1 with slight effacement of the anterior thecal sac and left lateral recess. No significant neural foraminal stenosis. 2. No acute fracture. Juan Bhakta MD Lumbar Spine MRI 01/23/17 Signed Impressions: Service Date/Time: Monday, January 23, 2017 17:01 - CONCLUSION: 1. At L4-5 is a broad-based disc protrusion with severe central canal and lateral recess stenosis and flattening of the exiting right L4 nerve root. 2. L5-S1 there is a disc protrusion and moderate stenosis with flattening of the exiting L5 nerve roots bilaterally. 3. At L3-4 there is a moderate to severe central stenosis and lateral recess stenosis with mild foraminal stenosis. 4. No acute fracture or spondylolisthesis. Traec Holloway MD Lower Extremity Ultrasound 01/23/17 Signed Impressions: Service Date/Time: Monday, January 23, 2017 09:53 - CONCLUSION: Bilateral focal lower extremity DVT involving the posterior tibial veins. Angelo Garrido MD Cervical Spine MRI 01/23/17 Signed Impressions: Service Date/Time: Monday, January 23, 2017 17:01 - CONCLUSION: 1. Multilevel cervical spine degenerative changes as above. 2. Mild degrees of spinal stenosis at C3/C4-C6/C7. No cord compression or cord signal abnormality. 3. Age indeterminate left paracentral/foraminal disc protrusion at C6/C7. 4. Multilevel foraminal stenosis, most severe on the left at C6/C7. Please see individual levels above. 5. No fracture or subluxation of the cervical spine. Angelo Garrido MD Brain MRI 01/23/17 Signed Impressions: Service Date/Time: Monday, January 23, 2017 17:01 - CONCLUSION: 1. No acute stroke or other acute intracranial abnormality demonstrated. 2. Moderate severity chronic white matter changes, nonspecific but most likely related to chronic small vessel disease. 3. Few scattered tiny lacunar infarcts of the brainstem. 4. Given the findings are not entirely specific, clinical evaluation for possible multiple sclerosis recommended. Angelo Garrido MD Knee X-Ray [id number] Signed Impressions: Service Date/Time: Sunday, January 22, 2017 21:17 - CONCLUSION: 1. Evidence of moderate to large joint effusion. 2. No acute fracture or malalignment. 3. Mild 3 compartment osteoarthritic change. Benjamin Person MD Hip and Pelvis X-Ray [id number] Signed Impressions: Service Date/Time: Sunday, January 22, 2017 21:10 - CONCLUSION: 1. Mild to moderate degenerative change of both hips with no acute fracture or malalignment. There is flattening and remodeling of the right humeral head. Benjamin Person MD Objective Remarks GENERAL: 62-year-old male, resting in bed, on mechanical ventilation via trach HEENT: Normocephalic. Atraumatic. Pupils equal, round, reactive. NECK: Tracheostomy in place CHEST: b/l equal air entry CARDIOVASCULAR: normal rate, regular rhythm. ABDOMEN distended. No rigidity. Umbilical hernia is reducible. No guarding. PEG tube in place : Positive scrotal edema Sloan in situ MUSCULOSKELETAL: Pulses 2+. 1+ bilateral upper and lower extremity edema. NEUROLOGICAL: RASS -3. obtunded. weakly withdraws to pain x 4. Procedures 01/25/2017- Retrievable IVC Filter placement 01/26/17-lumbar puncture with fluoroscopy-by interventional radiology 02/01/17- lumbar puncture fluoroscopy by interventional radiology 02/10/17- Endotracheal Intubation 02/10/17-left IJ central venous line placed 02/10/17-left femoral arterial line placed 02/11/17-Diagnostic and therapeutic bronchoscopy with bronchoalveolar lavage 02/11/17-Left upper extremity incision and debridement with excision of septic cephalic vein 02/13/17- Extubated 02/20/17- endotracheal intubation 02/20/17- Left subclavian central line placement 02/20/17-Right radial A-line placement 02/22/17-EGD/colonoscopy 02/28/17-right radial a line 02/28/17- Endotracheal intubation 02/28/17- right sided introducer catheter placement 02/28/17- Right IJ central line placement 02/28/17-Right chest tube placement 02/28/17- Embolization of inferior and superior sacral branches of right internal iliac artery 03/01/17- Hemodialysis access catheter 03/03/17-Right IJ central line placement 03/11/17-Extubated 03/13/17- Endotracheal intubation 03/14/17-Tracheostomy placement, trach downsized to 6.0 Anni 03/30/17 03/15/17-PEG tube placement 04/11/17-CT Chest 04/13/17-thoracentesis right 600 cc removed A/P Problem List: (1) Septic shock ICD Code: A41.9 - Sepsis, unspecified organism; R65.21 - Severe sepsis with septic shock Status: Acute (2) Acute respiratory failure ICD Code: J96.00 - Acute respiratory failure, unspecified whether with hypoxia or hypercapnia Status: Chronic (3) Thrombophlebitis arm ICD Code: I80.8 - Phlebitis and thrombophlebitis of other sites (4) Aspiration pneumonia ICD Code: J69.0 - Pneumonitis due to inhalation of food and vomit Status: Acute (5) Atelectasis of left lung ICD Code: J98.11 - Atelectasis Status: Acute (6) Quadriparesis ICD Code: G82.50 - Quadriplegia, unspecified Status: Acute (7) DVT (deep venous thrombosis) ICD Code: I82.409 - Acute embolism and thrombosis of unspecified deep veins of unspecified lower extremity (8) Altered mental status ICD Code: R41.82 - Altered mental status, unspecified Status: Acute (9) CKD (chronic kidney disease) stage 3, GFR 30-59 ml/min ICD Code: N18.3 - Chronic kidney disease, stage 3 (moderate) Status: Chronic (10) Acute renal failure ICD Code: N17.9 - Acute kidney failure, unspecified Status: Acute (11) Diabetes mellitus ICD Code: E11.9 - Type 2 diabetes mellitus without complications Status: Chronic (12) Distal end of ulna fracture, closed ICD Code: S52.609A - Unspecified fracture of lower end of unspecified ulna, initial encounter for closed fracture Status: Acute (13) Gout ICD Code: M10.9 - Gout, unspecified Status: Chronic Assessment and Plan Assessment: 62yM with chronic multi-organ dysfunction now with recurrent septic shock. hgb stable, active bleeding has appeared to stop at this point. goals remain aggressive, although DNR code status. no improvements. renal function worsens: poor candidate for recurrent acute renal replacement therapy. overall poor prognosis. NEURO/PSYCH: Acute metabolic encephalopathy- persistent, worsening this morning. Quadriparesis secondary to suspected transverse myelitis Recurrent falls On no sedation. Monitor neuro status. Suspected transverse myelitis. Received methylprednisolone 250 mg IV every 6 hours 01/27-02/02, started back on hydrocortisone 02/21/17, initially tapering to 50 mg IV every 8 hours starting received 1 dose at 2100 prior to becoming hypotensive. weaning hydrocortisone taper and stopped 03/09. Resumed hydrocortisone 50mg IV Q6hrly on 03/14 as patient became hypotensive following intubation on 03/13 requiring levophed. LP 01/26 and 02/01. CSF culture negative 01/26, 02/01 Oligoclonal bands negative. CSF/serum IgG index is not elevated. VDRL nonreactive. Cryptococcal antigen negative. Brain MRI 01/23 no acute stroke. Few scattered lacunar infarcts of the brainstem. Moderate chronic white matter changes. MRI cervical/thoracic spine- mild spinal stenosis C3/C4 to C6/C7. No cord compression. RPR negative Neurology has been following, Dr. Crenshaw. Repeat CT brain 02/10 - negative Continue PT/OT oxycodone 5mg po q4h scheduled hydrocortisone taper. RESP: Acute hypoxemic respiratory failure - persistent. Healthcare associated pneumonia/Aspiration Pneumonia - recurrent. S/P Right-sided chest tube 02/28 Continue with vent support keep sat >92% Bronchodilators, pulm toilet, trach care s/p perc tracheostomy 03/14. check CXR Pulmonology following Dr. Estrada 04/13 CT guided thoracentesis scheduled emergently as discussed with Dr. Estrada - 600cc removed (right) 04/14-tracheostomy up sized to 8.0 [place] by [employer] Dr. Estrada at bedside CV: Systolic heart failure likely chronic with ejection fraction 20-25% Hyperlipidemia History of hypertension Mild TR Sinus tachycardia Elevated troponin likely type II demand ischemia Septic Shock Hemorrhagic shock Monitor HR and BP keep MAP>65mmHg Atorvastatin 10 mg by mouth daily for dyslipidemia. 2-D echocardiogram 01/11 revealed EF 20-25%. Mild TR. Pulmonary arterial pressures were normal around 20 On Hydrocortisone 25mg Q8 GI: Large right retroperitoneal hematoma - resolved. Erosive esophagitis Adenomatous/hyperplastic colon polyps Severe acute protein calorie malnutrition Nausea/vomiting - resolved. Diarrhea Gastritis Diverticulosis Internal and external hemorrhoids Hiatal hernia Elevated lipase Tube feeds on hold as patient had emesis overnight ( tube feeds-Nepro@ 40ml/hr) 02/27 CT chest/abdomen and pelvis - 9.4 x 7.5 renal and 16 x 12 cm right psoas muscle hematoma. Fluid around liver and spleen. Right-sided nephrolithiasis CTA abdomen 02/28 - possible blushing around iliac/lumbar vessels Discussed with IR. s/p attempted embolization CT abdomen and pelvis 02/10 atrophic left kidney. Bilateral inguinal hernias fat- containing. Nonobstructing 12 mm right kidney stone repeat CT abd/pelvis did not show evidence of obstruction. patient clinically has been having diarrhea (c. diff negative 02/19). also with nausea/vomiting of unclear etiology. EGD/Colonoscopy-02/22/17 showed gastritis esophagitis, hiatal hernia, diverticulosis and multiple polyps in descending colon and sigmoid which were snared biopsied. Biopsy pending Status post PEG tube placement Lansoprazole 30 mg twice a day for GI prophylaxis FEN/RENAL: Acute kidney injury in the setting of Chronic kidney disease stage 3-4 History of uric acid kidney stones with prior stent BPH Nonfunctioning left kidney Monitor renal function, electrolytes replacement as needed Cr: 3.02 from 3.0 , UOP: 400ml in 24 hrs Renal is following- Dr. Liao. IV Albumin RIOS/SPEP negative. 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 Recommended nephrostomy tube if obstruction Nephrology consulted, off hemodialysis. Making urine. ICU electrolyte replacement protocol Last IHD was 03/22 hold free water. ID: Septic shock- recurrent Abscess and Suppurative thrombophlebitis left upper extremity MSSA bacteremia Klebsiella UTI ESBL positive Acute aspiration pneumonia/HCAP 04/27 Sputum cx: Pseudomonas, Urine cx: Ivania Bustillo , BC: 05/24 bottles: Coag negative staph likely contaminant 04/29 BC: NGTD 05/01 Wound cx: Pseudomonas, Group D enterococcus, GNR Previously treated with Bactrim, ertapenem, intermittent vancomycin, nafcillin Blood cultures 2, UA ESBL positive Klebsiella UTI Sputum 03/14 - Pseudomonas came back resistant to imipenem, Stenotrophomonas maltophilia Antibiotics per ID. on Diflucan, ID is following. C-diff PCR negative wound service is following. stage IV sacral ulcer, ulcer right ankle/LE Check CT abd/pelvis HEME: Acute blood loss anemia- worsening. DVT, bilateral posterior tibial vein, IVC filter Septic thrombophlebitis with occlusive thrombus mid cephalic and basilic vein side Monitor CBC s/p transfusion 2units PRBC ( 04/26) Received 10 PRBC, 14 FFP, 2 platelets, 1 cryo-02/28 Received 3 units PRBCs Ultrasound 01/23/17 - Bilateral lower extremity with occlusive posterior tibial vein DVTs. Heparin was initially started for DVT but was placed on hold due to LP with suspected traumatic tap. Currently holding full anticoagulation with enoxaparin 100 mg IV twice a day due to anemia as of 02/26 IVC filter was placed 01/25/17. Ultrasound LUE 02/10 occlusive thrombus mid cephalic vein, basilic vein.s. Transfuse 3 units PRBCs 02/27 Transfuse 2 units PRBCs 03/01. Transfused 1 unit PRBCs on 03/14 transfused 2 units prbc 05/06 ENDO: Diabetes mellitus Hypoglycemia History of prior adrenal insufficiency with shock Gout Accu-Cheks to maintain euglycemia Novulin R every 4 hours. Low Regimen MSK: Right distal ulna fracture. Recommended nonoperative management. PROPH: Lansoprazole 30 mg twice a day twice a day for stress ulcer prophylaxis. Has IVC filter. Therapeutic enoxaparin was placed on hold for retroperitoneal hematoma ACCESS: Right subclavian CVP placed 04/27. d/c central line and place peripheral IV's Level 3 Problem Qualifiers (1) Aspiration pneumonia: (2) DVT (deep venous thrombosis): Qualified Codes: I82.443 - Acute embolism and thrombosis of tibial vein, bilateral (3) Acute renal failure: Qualified Codes: N17.9 - Acute kidney failure, unspecified (4) Diabetes mellitus: (5) Gout: Hood Madera MD May 10, 2017 08:54
[2017-05-10] MEDS: LANSOPRAZOLE SOLUTAB 30 MG TAB NG SCH ×2 (09:00→20:51)
[2017-05-10] MEDS: TAMSULOSIN HCL 0.4 MG CAP PO SCH ×2 (09:00→20:53)
[2017-05-10] MEDS: LACTOBACILLUS ACIDOPHILUS TAB PO SCH ×3 (09:00→18:23)
[2017-05-10] MEDS: QUEtiapine FUMARATE 25 MG TAB PO SCH (09:00)
[2017-05-10] MEDS: CHOLESTYRAMINE 4 GM PACKET G-TUBE SCH ×2 (09:00→20:51)
--- NOTE | 2017-05-10 10:03 | RADRPT ---
EXAM DATE/TIME: 05/10/2017 08:58 [facility] COMPARISON: CHEST SINGLE AP, May 03, 2017, 10:19. INDICATIONS : Difficulty breathing. Ventilator dependent. MEDICAL HISTORY : Hypertension. Diabetes mellitus type 2. SURGICAL HISTORY : None. ENCOUNTER: Subsequent ACUITY: 1 week PAIN SCORE: Non-responsive. LOCATION: Bilateral chest FINDINGS: A single view of the chest demonstrates the tracheostomy tube and right subclavian central line in go od position. Persistent perihilar vascular congestion with small lung volume. No visible pneumothorax .. The cardiomediastinal contours are unremarkable. Osseous structures are intact. CONCLUSION: Pulmonary vascular congestion remains. Duy Genao MD on May 10, 2017 at 10:00 Board Certified Radiologist. This report was verified electronically.
[2017-05-10] MEDS: ONDANSETRON HCL 4 MG/2 ML VIAL IVP PRN ×2 (10:05→20:52)
[2017-05-10] MEDS: SODIUM CHLORIDE 0.9% FLUSH 10 ML FLUSH IV FLUSH SCH ×3 (10:06→20:53)
[2017-05-10] MEDS: CHLORHEXIDINE 0.12% (ORAL KIT) 15 ML CUP MT SCH ×2 (10:06→20:53)
[2017-05-10] MEDS: COLLAGENASE OINT 30 GM TUBE TOPICAL SCH (10:06)
--- NOTE | 2017-05-10 12:26 | HHI.NPPN ---
Subjective History of Present Illness 61-year-old with history of urinary stone patient again got unstable has recurrent bouts of ICU admission requiring ventilation and respiratory care started having scrotal swelling and acute renal failure again, he had mild hyperkalemia and this was treated I have been reconsulted again Additional Remarks Patient had trach on vent, not in distress, open eyes spontaneously, on CPAP off and on. Review of Systems General Constitutional: Fatigue Objective Data Data Vital Signs Date Time Temp Pulse Resp B/P (MAP) Pulse Ox O2 Delivery O2 Flow Rate FiO2 05/10/17 11:25 97 35 05/10/17 10:00 73 05/10/17 08:00 85 05/10/17 07:55 35 05/10/17 06:00 101 05/10/17 04:01 98.2 74 14 124/64 (84) 96 05/10/17 04:00 96 35 05/10/17 04:00 73 05/10/17 04:00 45 05/10/17 02:00 81 05/10/17 00:00 97.7 76 16 150/73 (98) 98 05/10/17 00:00 76 05/10/17 00:00 35 05/09/17 23:40 100 35 05/09/17 22:00 75 05/09/17 20:00 35 05/09/17 20:00 80 05/09/17 20:00 98.0 80 12 155/81 (105) 100 05/09/17 19:53 97 35 05/09/17 18:01 75 9 146/75 (98) 98 05/09/17 18:00 77 05/09/17 17:01 73 8 130/69 (89) 98 05/09/17 16:01 97.0 74 14 132/71 (91) 98 05/09/17 16:00 35 05/09/17 16:00 70 05/09/17 15:01 72 8 137/70 (92) 98 05/09/17 14:46 98 35 05/09/17 14:01 72 10 138/71 (93) 98 05/09/17 14:00 71 05/09/17 13:01 69 8 135/69 (91) 97 -: 05/10/17 0430 05/10/17 0430 Physical Exam General Appearance: No Acute Distress, Pale Eyes Eye Exam: Pupils Equal Throat Throat Exam: Oral Mucosa [place] & Moist Neck Neck Exam: Neck Supple Pulmonary Resp Exam: Clear Bilaterally Cardiology CV Exam: Normal Sinus Rhythm Gastrointestinal/Abdomen GI Exam: Non-Tender, Distended Genitourinary Exam: Flank Non-Tender (scrotal edema) Extremeties Extremities Exam: Moderate Edema, Pitting Edema Neurologic Neuro Exam: Awake Assessment/Plan Problem List: (1) Acute renal failure ICD Codes: N17.9 - Acute kidney failure, unspecified Status: Acute Plan: Patient with pneumonia as, sepsis, acute renal failure Had pneumonia, developed sepsis with ARF. 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 Patient had been on dialysis earlier in hospitalization. He again has prerenal azotemia and respiratory failure, we will try albumin with Lasix again ON Lasix 20 mg IV every 12 follow kidney functions non oliguric ATN from sepsis He has multiple infections and pneumonia. Patient has improvement in the BP. Creatinine continue to increase. Urine out put is low. Creatinine slowly increasing, K is low. No urgent need for Dialysis at present. Weaning as tolerated. D/W Dr. Madera, start Lasix. Follow BMP and HD if needed. (2) CKD (chronic kidney disease) stage 3, GFR 30-59 ml/min ICD Codes: N18.3 - Chronic kidney disease, stage 3 (moderate) Status: Chronic Plan: Ultrasound revealed chronic kidney disease there is no kidney stones (3) Diabetes ICD Codes: E11.9 - Type 2 diabetes mellitus without complications Plan: Continue to monitor (4) Distal end of ulna fracture, closed ICD Codes: S52.609A - Unspecified fracture of lower end of unspecified ulna, initial encounter for closed fracture Status: Acute Plan: Orthopedic is following Problem Qualifiers (1) Acute renal failure: Qualified Codes: N17.9 - Acute kidney failure, unspecified Aicha Leonard MD May 10, 2017 12:26
--- NOTE | 2017-05-10 14:26 | HHI.IDPN ---
Note Infectious Disease Note ID COVERAGE: Patient having profuse vomiting of tube feed colored material. Had been receiving PEG tube feeding. CT of abdomen planned. Temp okay. WBC elevated. Patient is a 62-year-old male, admitted to the hospital for evaluation of pain in his right wrist. He gave a history of falling about a week ago and apparently had immediate pain in the right wrist. He did not seek any medical attention initially because reportedly he was very busy. He eventually presented, and he was found to have a distal ulnar fracture on plain films. He also had some redness and swelling. Orthopedics saw the patient, and was being treated conservatively with the splint. During this hospitalization also he started complaining of generalized weakness but more so in his lower extremity than his upper extremity. He had swelling in both lower extremity which revealed evidence of DVT in the posterior tibial veins. Neurology had seen the patient and he underwent lumbar puncture which apparently was traumatic. Patient was therefore not given anticoagulation because of the traumatic LP, and he underwent placement of an IVC filter on January 25. Patient had another lumbar puncture on February 01. He was felt to have transverse myelitis, and he was given high-dose IV Solu-Medrol from January 27 to February 02. There was apparently some improvement in his weakness. The imaging studies done for his weakness showed some spinal stenosis, and neurosurgery was consult that and recommended that there was no surgical intervention to be done. Patient has been stabilizing, but last night apparently deteriorated, and he ended up getting intubated, and had significant hypotension requiring pressors. There was also an ultrasound done of his left upper extremity which showed DVT, and there was evidence of superior 2 thrombophlebitis. Vascular surgery was consult to it and he had IND on his left upper extremity. Patient has had some fevers since yesterday. 2 blood cultures were done yesterday and they're now reported as growing gram-positive cocci in [place] in clusters. He is currently sedated and intubated. He is on Levophed and vasopressin. A central line was placed as well as a femoral a line. He apparently had an IV in his left upper extremity and that was removed yesterday. Patient also has history of chronic kidney disease, and nephrology evaluated the patient. He was just being monitored for his renal insufficiency. Reconsulted 04/12 for low grade fever, leucocytosis, worsening CXR concern for new pneumonia. Current Medications Medications (Trade) Dose Ordered Sig/Rosalia Route PRN Reason Start Time Stop Time Status Last Admin Dose Admin Sodium Chloride (NS Flush) 2 ml BID IV FLUSH 01/23/17 09:00 05/10/17 10:06 Ondansetron HCl (Zofran Inj) 4 mg Q6H PRN IVP NAUSEA OR VOMITING 01/23/17 00:30 05/10/17 10:05 Bisacodyl (Dulcolax Supp) 10 mg DAILY PRN RECTAL SEVERE CONSITIPATION 01/23/17 00:30 Atorvastatin Calcium (Lipitor) 10 mg HS PO 01/24/17 21:00 Future hold 05/09/17 20:18 Glucagon (Glucagon Inj) 1 mg UNSCH PRN OTHER HYPOGLYCEMIA-SEE COMMENTS 02/11/17 05:45 02/18/17 18:53 Tamsulosin HCl (Flomax) 0.4 mg Q12HR PO 02/17/17 15:00 Future hold 05/07/17 09:26 Lactobacillus Acidophilus (Lactinex) 1 tab TID PO 02/19/17 13:00 05/09/17 17:52 Dextrose (D50w (Vial) Inj) 25 ml UNSCH PRN IV PUSH HYPOGLYCEMIA-SEE COMMENTS 02/20/17 12:45 03/27/17 13:20 Chlorhexidine Gluconate (Peridex 0.12% Liq) 15 ml BID@08,20 MT 02/28/17 08:00 05/10/17 10:06 Sodium Chloride (NS Flush) UNSCH PRN IV FLUSH SEE PROTOCOL 03/01/17 13:00 Heparin Sodium (Porcine) (Heparin Inj) UNSCH PRN IV FLUSH SEE PROTOCOL 03/01/17 13:00 Sodium Chloride (NS Flush) DAILY IV FLUSH 03/04/17 09:00 05/10/17 10:06 Lansoprazole (Prevacid Odt) 30 mg BID NG 03/07/17 21:00 05/09/17 20:18 Acetaminophen (Tylenol 650 Mg/ 20 ml Liq) 650 mg Q6H PRN PO fever 03/09/17 10:15 04/30/17 12:01 Atenolol (Tenormin) 25 mg Q12HR PO 03/12/17 10:00 Future Hold 04/18/17 10:09 Epoetin Nico (Epogen Inj) 10,000 units UNSCH PRN IV PUSH WITH DIALYSIS 03/17/17 11:30 03/22/17 10:52 Nitroglycerin (Nitroglycerin 2% Oint) 2 inch Q6H PRN TOPICAL SBP>160, DBP>90 03/23/17 14:00 03/29/17 01:20 Amlodipine Besylate (Norvasc) 10 mg DAILY PO 03/28/17 09:00 Future Hold 04/19/17 08:16 Oxycodone HCl (Roxicodone Intensol Liq) 5 mg Q4H PO 04/01/17 18:00 05/10/17 06:30 Alprazolam (Xanax) 0.125 mg Q6H PRN PO anxiety 04/03/17 22:30 04/25/17 14:27 Miscellaneous (Pill Splitter) 1 ea UNSCH PRN OTHER SEE LABEL COMMENTS 04/03/17 22:45 Hyoscyamine Sulfate (Levsin Liq) 0.125 mg Q4H PRN G-TUBE Increase Secretions 04/06/17 15:00 04/12/17 10:09 Cholestyramine Resin (Questran 4 Gm Pkt) 4 gm Q12HR G-TUBE 04/08/17 21:00 05/09/17 20:18 Quetiapine Fumarate (SEROquel) 25 mg DAILY PO 04/09/17 09:00 05/09/17 09:29 Collagenase (Santyl Oint) 1 applic DAILY TOPICAL 04/10/17 09:00 05/10/17 10:06 Albuterol/ Ipratropium (Duoneb Neb) 1 ampule Q2HR NEB PRN NEB WHEEZING 04/12/17 17:00 05/10/17 07:55 Metoprolol Tartrate (Lopressor Inj) 2.5 mg Q6H PRN IV PUSH HR >120 04/23/17 01:15 Future Hold 04/23/17 09:36 Albumin Human 100 ml @ 60 mls/hr Q12H IV 04/30/17 17:00 05/10/17 04:23 Metoprolol Tartrate (Lopressor) 25 mg Q12HR PO 05/02/17 10:45 Future Hold 05/05/17 08:15 Fluconazole (Diflucan) 200 mg DAILY PO 05/08/17 11:00 05/09/17 09:29 Insulin Human Regular (NovoLIN R SUPPLEMENTAL SCALE) 1 Q4HR SQ 05/08/17 12:00 05/10/17 12:38 Water (Free Water) VOLUME OF WATER: ( 200 ) ML Q6HR G-TUBE 05/09/17 00:00 Future Hold 05/09/17 12:00 Hydrocortisone Sodium Succinate (SoluCORTEF INJ) 25 mg Taper Q8H IV PUSH 05/08/17 23:00 05/12/17 22:59 05/10/17 06:30 Lines Central line - 04/27 Allergies: Coded Allergies: levofloxacin (Verified Allergy, Severe, 01/22/17) OBJECTIVE: Vital Signs Date Time Temp Pulse Resp B/P (MAP) Pulse Ox O2 Delivery O2 Flow Rate FiO2 05/10/17 11:25 97 35 05/10/17 10:00 73 05/10/17 08:00 85 05/10/17 07:55 35 05/10/17 06:00 101 05/10/17 04:01 98.2 74 14 124/64 (84) 96 05/10/17 04:00 96 35 05/10/17 04:00 73 05/10/17 04:00 45 05/10/17 02:00 81 05/10/17 00:00 97.7 76 16 150/73 (98) 98 05/10/17 00:00 76 05/10/17 00:00 35 05/09/17 23:40 100 35 05/09/17 22:00 75 05/09/17 20:00 35 05/09/17 20:00 80 05/09/17 20:00 98.0 80 12 155/81 (105) 100 05/09/17 19:53 97 35 05/09/17 18:01 75 9 146/75 (98) 98 05/09/17 18:00 77 05/09/17 17:01 73 8 130/69 (89) 98 05/09/17 16:01 97.0 74 14 132/71 (91) 98 05/09/17 16:00 35 05/09/17 16:00 70 05/09/17 15:01 72 8 137/70 (92) 98 05/09/17 14:46 98 35 Laboratory Tests Test 05/09/17 05:30 05/10/17 04:30 White Blood Count 23.0 TH/MM3 23.4 TH/MM3 Red Blood Count 3.03 MIL/MM3 3.33 MIL/MM3 Hemoglobin 8.4 GM/DL 9.0 GM/DL Hematocrit 26.4 % 28.6 % Mean Corpuscular Volume 86.9 FL 85.7 FL Mean Corpuscular Hemoglobin 27.7 PG 26.9 PG Mean Corpuscular Hemoglobin Concent 31.8 % 31.4 % Red Cell Distribution Width 17.3 % 17.6 % Platelet Count 187 TH/MM3 216 TH/MM3 Mean Platelet Volume 8.5 FL 8.2 FL Laboratory Tests Test 05/09/17 05:30 05/10/17 04:30 Blood Urea Nitrogen 107 MG/DL 127 MG/DL Creatinine 3.00 MG/DL 3.02 MG/DL Random Glucose 284 MG/DL 219 MG/DL Calcium Level 8.6 MG/DL 8.2 MG/DL Sodium Level 132 MEQ/L 131 MEQ/L Potassium Level 3.2 MEQ/L 3.3 MEQ/L Chloride Level 97 MEQ/L 98 MEQ/L Carbon Dioxide Level 19.3 MEQ/L 15.6 MEQ/L Anion Gap 16 MEQ/L 17 MEQ/L Estimat Glomerular Filtration Rate 21 ML/MIN 21 ML/MIN Microbiology Date/Time Source Procedure Growth Status 05/06/17 13:26 Blood Peripheral Aerobic Blood Culture - Preliminary NO GROWTH IN 2 DAYS Resulted 05/06/17 13:26 Blood Peripheral Anaerobic Blood Culture - Preliminary NO GROWTH IN 2 DAYS Resulted 05/06/17 13:16 Blood Peripheral Aerobic Blood Culture - Preliminary NO GROWTH IN 2 DAYS Resulted 05/06/17 13:16 Blood Peripheral Anaerobic Blood Culture - Preliminary NO GROWTH IN 2 DAYS Resulted 05/06/17 11:35 Sputum Endotracheal Gram Stain - Final Complete 05/06/17 11:35 Sputum Endotracheal Sputum Culture - Final RARE GROWTH NORMAL RESPIRATORY EARL Complete 05/06/17 13:00 Urine Catheterized Urine Urine Culture - Final Linda Glabrata Complete Imaging Chest X-Ray 05/10/17 0000 Signed Impressions: Service Date/Time: April 08:58 - CONCLUSION: Pulmonary vascular congestion remains. Duy Genao MD Chest X-Ray 05/03/17 0000 Signed Impressions: Service Date/Time: April 10:19 - CONCLUSION: 1. Poor lung aeration 2. Interstitial vascular prominence 3. Significant left lung opacity characteristic of moderate pleural effusion and underlying basilar air space disease. Lenny Ware MD Thoracentesis 04/13/17 1054 Signed Impressions: Service Date/Time: Thursday, April 13, 2017 15:26 - CONCLUSION: Uncomplicated CT-guided right thoracentesis. Candido Mendoza Jr., MD Chest CT 04/12/17 1558 Signed Impressions: Service Date/Time: March 17:51 - CONCLUSION: 1. Slight increase in size of bilateral effusions and basilar atelectasis, left greater than right compared with February 27. Tracheostomy in good position. Trace Holloway MD Renal Ultrasound 04/02/17 0000 Signed Impressions: Service Date/Time: Sunday, April 02, 2017 16:59 - CONCLUSION: Limited exam with the left kidney being unable to be evaluated in the bladder not distended. There do appear to be multiple shadowing stones at the right kidney without hydronephrosis. Angelo Manzo MD Wrist X-Ray 03/27/17 0000 Signed Impressions: Service Date/Time: Monday, March 27, 2017 13:21 - CONCLUSION: 1. No acute fracture is identified. A portion of the previously documented distal ulna fracture remains visualized. 2. 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 nAgelo Allen MD Aortography 02/28/17 0000 Signed Impressions: Service Date/Time: Tuesday, February 28, 2017 08:01 - CONCLUSION: 1. Active hemorrhage from distal right lateral sacral and iliolumbar branches successfully coil and Gelfoam embolized, as above. Juan Bhakta MD Abdomen/Pelvis CT 02/28/17 0000 Signed Impressions: Service Date/Time: Tuesday, February 28, 2017 06:51 - CONCLUSION: 1. The right retroperitoneal hematoma has increased in size, as above. There are 2 serpiginous arterially enhancing structures visualized, one in the right psoas muscle and another extending into the hematoma at the right iliac fossa. These could represent sites of continued active bleeding. 2. Stable moderate size left and small right pleural effusion with associated compressive atelectasis. 3. Stable small volume of free fluid in the abdomen and pelvis. There is also anasarca. The findings concerning the retroperitoneal hematoma were discussed with Dr. Aguiar via telephone at approximately 7: 10 AM on 02/28/2017. Angelo Allen MD Abdomen X-Ray 02/26/17 Signed Impressions: Service Date/Time: Sunday, February 26, 2017 14:52 - CONCLUSION: 1. Nonobstructive bowel gas pattern. Juan Bhakta MD Upper Extremity Ultrasound 02/10/17 Signed Impressions: Service Date/Time: Friday, February 10, 2017 18:46 - CONCLUSION: Occlusive thrombus in the cephalic and basilic veins. Benjamin Person MD Lung Scan- Nuclear Medicine 02/10/17 Signed Impressions: Service Date/Time: Friday, February 10, 2017 22:17 - CONCLUSION: Low probability pulmonary embolism. Candido Patton MD Head CT 02/10/17 Signed Impressions: Service Date/Time: Friday, February 10, 2017 23:51 - CONCLUSION: Negative noncontrast CT brain. Candido Patton MD Lumbar Puncture Fluoroscopy 02/01/17 0000 Signed Impressions: Service Date/Time: January 09:35 - CONCLUSION: Uncomplicated fluoroscopically guided lumbar puncture. CSF was clear. Nabeel Peralta MD Head Magnetic Resonance Angiography 01/27/17 0000 Signed Impressions: Service Date/Time: Friday, January 27, 2017 10:33 - CONCLUSION: No intracranial vascular abnormality is identified. There is no aneurysm visualized. Angelo Allen MD IVC Filter Placement X-Ray 01/25/17 Signed Impressions: Service Date/Time: January 10:29 - CONCLUSION: Uncomplicated inferior vena cava filter placement as above. Yung Fowler MD Thoracic Spine MRI 01/24/17 Signed Impressions: Service Date/Time: Tuesday, January 24, 2017 22:29 - CONCLUSION: 1. Mild degenerative spondylosis most prominently at T11-L1 with slight effacement of the anterior thecal sac and left lateral recess. No significant neural foraminal stenosis. 2. No acute fracture. Juan Bhakta MD Lumbar Spine MRI 01/23/17 Signed Impressions: Service Date/Time: Monday, January 23, 2017 17:01 - CONCLUSION: 1. At L4-5 is a broad-based disc protrusion with severe central canal and lateral recess stenosis and flattening of the exiting right L4 nerve root. 2. L5-S1 there is a disc protrusion and moderate stenosis with flattening of the exiting L5 nerve roots bilaterally. 3. At L3-4 there is a moderate to severe central stenosis and lateral recess stenosis with mild foraminal stenosis. 4. No acute fracture or spondylolisthesis. Trace Holloway MD Lower Extremity Ultrasound 01/23/17 Signed Impressions: Service Date/Time: Monday, January 23, 2017 09:53 - CONCLUSION: Bilateral focal lower extremity DVT involving the posterior tibial veins. Angelo Garrido MD Cervical Spine MRI 01/23/17 Signed Impressions: Service Date/Time: Monday, January 23, 2017 17:01 - CONCLUSION: 1. Multilevel cervical spine degenerative changes as above. 2. Mild degrees of spinal stenosis at C3/C4-C6/C7. No cord compression or cord signal abnormality. 3. Age indeterminate left paracentral/foraminal disc protrusion at C6/C7. 4. Multilevel foraminal stenosis, most severe on the left at C6/C7. Please see individual levels above. 5. No fracture or subluxation of the cervical spine. Angelo Garrido MD Brain MRI 01/23/17 Signed Impressions: Service Date/Time: Monday, January 23, 2017 17:01 - CONCLUSION: 1. No acute stroke or other acute intracranial abnormality demonstrated. 2. Moderate severity chronic white matter changes, nonspecific but most likely related to chronic small vessel disease. 3. Few scattered tiny lacunar infarcts of the brainstem. 4. Given the findings are not entirely specific, clinical evaluation for possible multiple sclerosis recommended. Angelo Garrido MD Knee X-Ray [id number] Signed Impressions: Service Date/Time: Sunday, January 22, 2017 21:17 - CONCLUSION: 1. Evidence of moderate to large joint effusion. 2. No acute fracture or malalignment. 3. Mild 3 compartment osteoarthritic change. Benjamin Person MD Hip and Pelvis X-Ray [id number] Signed Impressions: Service Date/Time: Sunday, January 22, 2017 21:10 - CONCLUSION: 1. Mild to moderate degenerative change of both hips with no acute fracture or malalignment. There is flattening and remodeling of the right humeral head. Benjamin Person MD Physical Exam GENERAL: No distress. SKIN: Cool and dry. No generalized rash. Edematous in extremities. EYES: [place] conjunctiva. No petechia or hemorrhage. EARS, NOSE AND THROAT: Nose without bleeding or purulent nasal discharge. Dry oral mucosa NECK: Trach site ok. CARDIOVASCULAR: Regular rate and rhythm. Soft heart sounds. No murmurs RESPIRATORY: Coarse BS bilaterally, decreased at bases. ABDOMEN: Soft, not tender, distended, PEG site ok. No guarding rectal tube in place with liquid stool EXTREMITIES: No clubbing, cyanosis. 3+ Edema. Dressing on R leg wound with lots of drainage. Generalized anasarca. NEUROLOGICAL: sedated PSYCHIATRIC: unable to assess LINE: Lines with no evidence of infection IMPRESSION Recurrent respiratory failure, ?plugging, PNA - last CXR better New Sepsis (fever and leucocytosis), temps up again x 1, and WBC still elevated Aspiration Pneumonia in health care setting. Mucus plugs with atelectasis. Leucocytosis, persistent, up and down ESBL in urine in recent past. 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 PNA, ?plugging/atelctasis - MDR, I to Zerbaxa, has been tolerating T-piece - likely effusion adding to his respiratory problems, on top of his plugging /secretions Large R retroperitoneal bleed, S/P multiple transfusions and S/P coiling of bleeders Anemia, due to bleed, retroperitoneal MSSA sepsis, due to suppurative thrombophlebitis LUE, S/P I and D and excision of portion of cephalic vein - S/P Rx Respiratory failure, has had several intubations - reintubated again 02/28, extubated 03/11 - reintubated again - S/P trach 03/14 Rx 7 days high dose solumedrol for transverse myelitis Wu LE DVT has IVC filter placed 01/25 - ?hypercoagulable state Chronic kidney disease, worsening creatinine - shock and compression of ureter by hematoma Known DM, HTN Diarrhea, C.diff negative Renal insufficiency, worsening Vomiting. Risk for aspiration. RECOMMENDATION Change Diflucan to Micafungin. Follow new C/S Monitor progress Follow temps Follow CT Pt with prior retroperitoneal hematoma and embolization - ?rebleed Weaning per CCM Patient not improving, and has been deteriorating Douglas Acevedo MD May 10, 2017 14:26
--- NOTE | 2017-05-10 15:02 | HHI.HCPN ---
Reason for visit a. To assist with evaluation and management of symptoms including: shortness of breath, pain, debility. b. To assist medical decision maker(s) with: better understanding of current medical conditions; weighing benefits/burdens of medical treatment options; making medical treatment decisions. Subjective/Interval History Patient seen and examined in ICU. No family at bedside. Patient awake, alert to self. Communicating by mouthing words, was able to tell me his name and that he was at the hospital. Unable to elaborate on why he was hospitalized. Patient nodding head to yes/no questions. Denies pain, however, facial grimacing noted with abdominal palpation. Attempted to engage patient in goals of care conversation, nodding head "no" when asked about his understanding. Bedside nurse reports that patient has been having episodes of emesis this morning, tube feedings on hold. CT of abdomen and pelvis pending, patient with prior retroperitoneal hematoma and embolization. Patient with persistent leukocytosis, 23.4 today. Infectious disease following. Patient's renal function continues to worsen, BUN/creatinine 127/3.02, nephrology following. Patient afebrile, stable hemodynamically. On CPAP trials via tracheostomy at the time of my visit. Telephone conversation with patient's son Davie. Medical update provided. Discussed patient's progressive decline and acute complications. Reviewed overall poor prognosis. Son electing to continue aggressive management short of no cardiac code. Son receptive to palliative care follow-ups. . Family/friend interactions See interval note. . Advance Directives Living Will: Never completed Health Care Surrogate: Never completed Durable Power of Self Pay Collector: Never completed Advance Directive Specifics Health Care Surrogate(s): Healthcare proxys- Ana Kerr - ; Jabari-Arnel Kerr- -cell -home -Opted out though he wants to be updated on patient`s medical status. Documented care wishes: No known documented care wishes have been completed. . Significant change in goals: Son electing to continue aggressive management short of no cardiac code. . Objective Vital Signs Date Time Temp Pulse Resp B/P (MAP) Pulse Ox O2 Delivery O2 Flow Rate FiO2 05/10/17 11:25 97 35 05/10/17 10:00 73 05/10/17 08:00 85 05/10/17 07:55 35 05/10/17 06:00 101 05/10/17 04:01 98.2 74 14 124/64 (84) 96 05/10/17 04:00 96 35 05/10/17 04:00 73 05/10/17 04:00 45 05/10/17 02:00 81 05/10/17 00:00 97.7 76 16 150/73 (98) 98 05/10/17 00:00 76 05/10/17 00:00 35 05/09/17 23:40 100 35 05/09/17 22:00 75 05/09/17 20:00 35 05/09/17 20:00 80 05/09/17 20:00 98.0 80 12 155/81 (105) 100 05/09/17 19:53 97 35 05/09/17 18:01 75 9 146/75 (98) 98 05/09/17 18:00 77 05/09/17 17:01 73 8 130/69 (89) 98 05/09/17 16:01 97.0 74 14 132/71 (91) 98 05/09/17 16:00 35 05/09/17 16:00 70 05/09/17 15:01 72 8 137/70 (92) 98 Intake & Output 05/10/17 05/10/17 07:00 19:00 Intake Total 762 ml Output Total 500 ml Balance 262 ml Tube Feeding 462 ml Albumin 100 ml Other 200 ml Output Urine Total 200 ml Stool Total 300 ml Physical Exam CONSTITUTIONAL/GENERAL: This is an ill-looking patient. Progressive in bed in no acute distress. TUBES/LINES/DRAINS: PEG tube, Tracheostomy on a mechanical ventilator, PIVs, palmer catheter. SKIN: No jaundice. Ecchymoses on upper extremities. Sacral pressure wound and L heel pressure injury per EMR. Wound to anterior neck - tracheostomy insertion area with a foam dressing. Not diaphoretic. ENT: Trached. Nose without bleeding or purulent drainage. Moist oral mucosa. NECK: Trachea midline. #8 Tracheostomy midline- patient on mechanical ventilation. Currently on CPAP trial. CARDIOVASCULAR: Regular rate and rhythm without murmurs, gallops, or rubs. No JVD. RESPIRATORY/CHEST: Symmetrical, rhonchi and wheezy to auscultation. Small amount of yellow secretions around trach. Patient on mechanical ventilation GASTROINTESTINAL: Abdomen large, obese, round, tender to palpation. Bowel sounds hypoactive. GENITOURINARY: Without palpable bladder distension. catheter in place. Massive scrotal edema. MUSCULOSKELETAL: Gout tophi to fingers, knees, elbows and both ankles. Edema + 3 noted to all 4 extremities. NEUROLOGICAL: Awake, alert to self. PSYCHIATRIC: Appears calm. . Diagnostic Tests Laboratory Laboratory Tests Test 05/08/17 05:50 05/09/17 05:30 05/10/17 04:30 White Blood Count 26.6 TH/MM3 (4.0-11.0) 23.0 TH/MM3 (4.0-11.0) 23.4 TH/MM3 (4.0-11.0) Red Blood Count 3.12 MIL/MM3 (4.50-5.90) 3.03 MIL/MM3 (4.50-5.90) 3.33 MIL/MM3 (4.50-5.90) Hemoglobin 8.6 GM/DL (13.0-17.0) 8.4 GM/DL (13.0-17.0) 9.0 GM/DL (13.0-17.0) Hematocrit 27.1 % (39.0-51.0) 26.4 % (39.0-51.0) 28.6 % (39.0-51.0) Mean Corpuscular Volume 86.8 FL (80.0-100.0) 86.9 FL (80.0-100.0) 85.7 FL (80.0-100.0) Mean Corpuscular Hemoglobin 27.7 PG (27.0-34.0) 27.7 PG (27.0-34.0) 26.9 PG (27.0-34.0) Mean Corpuscular Hemoglobin Concent 31.9 % (32.0-36.0) 31.8 % (32.0-36.0) 31.4 % (32.0-36.0) Red Cell Distribution Width 17.3 % (11.6-17.2) 17.3 % (11.6-17.2) 17.6 % (11.6-17.2) Platelet Count 216 TH/MM3 (150-450) 187 TH/MM3 (150-450) 216 TH/MM3 (150-450) Mean Platelet Volume 8.3 FL (7.0-11.0) 8.5 FL (7.0-11.0) 8.2 FL (7.0-11.0) Blood Urea Nitrogen 87 MG/DL (7-18) 107 MG/DL (7-18) 127 MG/DL (7-18) Creatinine 2.76 MG/DL (0.60-1.30) 3.00 MG/DL (0.60-1.30) 3.02 MG/DL (0.60-1.30) Random Glucose 310 MG/DL (74-106) 284 MG/DL (74-106) 219 MG/DL (74-106) Calcium Level 9.6 MG/DL (8.5-10.1) 8.6 MG/DL (8.5-10.1) 8.2 MG/DL (8.5-10.1) Sodium Level 136 MEQ/L (136-145) 132 MEQ/L (136-145) 131 MEQ/L (136-145) Potassium Level 3.5 MEQ/L (3.5-5.1) 3.2 MEQ/L (3.5-5.1) 3.3 MEQ/L (3.5-5.1) Chloride Level 102 MEQ/L (98-107) 97 MEQ/L (98-107) 98 MEQ/L (98-107) Carbon Dioxide Level 21.7 MEQ/L (21.0-32.0) 19.3 MEQ/L (21.0-32.0) 15.6 MEQ/L (21.0-32.0) Anion Gap 12 MEQ/L (5-15) 16 MEQ/L (5-15) 17 MEQ/L (5-15) Estimat Glomerular Filtration Rate 23 ML/MIN (>89) 21 ML/MIN (>89) 21 ML/MIN (>89) Result Diagram: 05/10/17 0430 05/10/17 0430 Imaging Last 48 hours Impressions Chest X-Ray 05/10/17 0000 Signed Impressions: Service Date/Time: April 08:58 - CONCLUSION: Pulmonary vascular congestion remains. Duy Genao MD Procedures 01/25/2017- Retrievable IVC Filter placement 01/26/17-lumbar puncture with fluoroscopy-by interventional radiology 02/01/17- lumbar puncture fluoroscopy by interventional radiology 02/10/17- Endotracheal Intubation 02/10/17-left IJ central venous line placed 02/10/17-left femoral arterial line placed 02/11/17-Diagnostic and therapeutic bronchoscopy with bronchoalveolar lavage 02/11/17-Left upper extremity incision and debridement with excision of septic cephalic vein 02/13/17- Extubated 02/20/17- endotracheal intubation 02/20/17- Left subclavian central line placement 02/20/17-Right radial A-line placement 02/22/17-EGD/colonoscopy 02/28/17-right radial a line 02/28/17- Endotracheal intubation 02/28/17- right sided introducer catheter placement 02/28/17- Right IJ central line placement 02/28/17-Right chest tube placement 02/28/17- Embolization of inferior and superior sacral branches of right internal iliac artery 03/01/17- Hemodialysis access catheter 03/03/17-Right IJ central line placement 03/11/17-Extubated 03/13/17- Endotracheal intubation 03/14/17-Tracheostomy placement 03/15/17-PEG tube placement 04/13/17-thoracentesis right 600 cc removed 04/13/17-Tracheostomy up-sized to #8 Shiley 04/26/17 Central line placement . Assessment and Plan Disease Oriented Problem List: (1) Acute respiratory failure (2) Septic shock (3) Aspiration pneumonia (4) Acute renal failure (5) CKD (chronic kidney disease) stage 3, GFR 30-59 ml/min (6) Cardiomyopathy (7) DVT of lower extremity, bilateral (8) Thrombophlebitis arm (9) Diabetes mellitus (10) Gout (11) HTN (hypertension) (12) Hyperlipidemia Symptom Scale: (1) Shortness of breath 0-10 Scale: Unable to quantify Comment: Trach, Back on mechanical ventilation 04/26/17 . . (2) Debility 0-10 Scale: Unable to quantify Comment: Progressive. . (3) Pain 0-10 Scale: Unable to quantify Comment: History of falls, gout, arthritis, and currently bedbound. . Pertinent Non-Medical Issues Psychosocial:Patient was born and raised in [place], [place]. Patient was once for 20 years, now and has 2 adult sons. 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 He recently resigned due to failing health. Spiritual: No mosque affiliation Legal: Per [place] statutes, in the absence of written advanced directives healthcare proxy decision making falls to the patient's 2 adult children. Patient's son (Davie) lives locally and wishes to participate in the role of the healthcare proxy decision maker. Palliative care has attempted to contact Arnel, has not call back. Patient`s sister Deb and patients brother verbalized that they have been updating Arnel on patient`s medical status. Ethical issues impacting care: No known ethical issues impacting care at this time. . Important Contacts Son-Davie Kerr - Son-Arnel Kerr- -cell -home Sister-Deb Patricio . Prognosis Mr Kerr is a 62 years old male with a past medical history of hypertension, asthma, diabetes, hyperlipidemia, chronic kidney disease and gout. Patient presented to the ED on 01/22/17 complaining of bilateral knee and right arm pain after a mechanical fall 4 or 5 days prior to coming to the ER. Clinical course complicated with increased weakness leading to numerous diagnostic work ups for possible transverse myelitis, DVTs, retroperitoneal hematoma, aspiration pneumonia, intubation x 4 times, septic and hemorrhagic shock requiring support with pressors and multiple pRBC, FFP transfusions as well as platelets and cryo , renal failure requiring hemodialysis and sacral wound Given ongoing comorbidities, and prolonged hospitalization, patient remains at risk for further complications, deterioration and decline. Code Status: Alternative Code (Intubation only ) Plan * Legal decision maker: Patient is incapacitated to make his own decisions, unclear if he will regain capacity. According to [place] statutes, health care proxy decision making falls to majority of adult children, he as 2 sons Davie and Arnel. Arnel has opted out of decision making, * CODE STATUS: Intubation Only -NO cardiac code. * Goals: 05/10/17 -Son Davie acting as healthcare proxy decision maker has elected to continue aggressive management short of no cardiac code. Son receptive to ongoing goals of care conversation should patient's clinical condition continues to worsen. SYMPTOMS: * Shortness of breath: Multifactorial. Patient has had aspiration pneumonia. Patient has been intubated 4 times this hospitalization. Patient has a tracheostomy. On duonebs. Patient is also on Hydrocortisone 50mg q 6 hours. Customer Service Correspondence Clerk following. Trach up-sized to #8. Patient placed back on mechanical ventilation, was hypoxic 04/26/17. * Pain: Patient presented initially complaining of pain to right wrist and bilateral knees after a mechanical fall. Patient has a history of gout, arthritis, multiple falls and is currently bedbound. Patient on Oxycodone 5mg q 4 hours ATC. Patient on Hydrocortisone. * Debility: Progressive. Patient has had decline in his health for the past 4 months, including progressively increased weakness and difficulty ambulating and prolonged hospitalization with multiple setbacks. Patient remains at high risk for further physical deconditioning and debility. * Case discussed with Dr. Madera and bedside RN. * Palliative care will continue to follow the patient during hospital course as condition evolves, to assist patient/decision-maker with understanding of their medical conditions, weighing benefits/burdens of treatment options, for clarification of goals of treatment. Additionally will assist with any symptoms of palliative concern. . Time Spent Total Floor Time (mins): 33 (Total time to include review and summarization of available medical records, physical exam, goals of care conversation with patient's son, case discussion with Dr. Madera and bedside RN.) >50% Counseling/Coord of Care: Yes Attestation To help prompt me to consider important information that might be impacting today's encounter and assessment, information from prior notes written by myself or my colleagues may have been "brought forward" into today's note. My signature on this note, however, is an attestation that I personally performed the exam, history, and/or decision-making noted today, and, unless otherwise indicated, the interactions with patient, family, and staff as well as the review of records all occurred today. I also attest that the listed assessment and stated plan reflect my best clinical judgment today based on the combination of historical information, prior notes, and today's exam/ interactions. When time spent is documented, it refers only to time spent today by the signer, or if indicated, combined time spent today by collaborating physician/nurse practitioner. Ira Padilla May 10, 2017 15:02
--- NOTE | 2017-05-10 16:16 | RADRPT ---
EXAM DATE/TIME: 05/10/2017 15:38 [facility] COMPARISON: CT ABDOMEN & PELVIS W/O CONTRAST, February 27, 2017, 18:12. INDICATIONS : Leukocytosis. Evaluate for abdominal process. ORAL CONTRAST: No oral contrast ingested. RADIATION DOSE: 25.55 CTDIvol (mGy) MEDICAL HISTORY : Diabetes, renal disease, hypertension SURGICAL HISTORY : None. ENCOUNTER: Initial ACUITY: 1 day PAIN SCALE: Non-responsive LOCATION: abdomen TECHNIQUE: Volumetric scanning of the abdomen and pelvis was performed. Using automated exposure control and ad justment of the mA and/or kV according to patient size, radiation dose was kept as low as reasonably achievable to obtain optimal diagnostic quality images. DICOM format image [facility] is [facility] and clinically for review and comparison. FINDINGS: LOWER LUNGS: Small bilateral pleural effusions are seen with associated passive atelectasis. These effusions are l arger from the prior study. Coronary artery atherosclerotic calcifications. Heart is normal in size. LIVER: Homogeneous density without lesion. There is no dilation of the biliary tree. No calcified gallston es. SPLEEN: Normal size without lesion. PANCREAS: Within normal limits. KIDNEYS: The left kidney is atrophic. The right kidney is unremarkable. No hydronephrosis. ADRENAL GLANDS: Within normal limits. VASCULAR: There is an IVC filter noted. Scattered calcified plaque involving the normal caliber aorta. BOWEL/MESENTERY: The stomach, small bowel, and colon demonstrate no acute abnormality. There is no free intraperitone al air. There is a small amount of free fluid within the pelvis and tracking down both paracolic gutt ers. Rectal tube noted. ABDOMINAL WALL: Anasarca observed. RETROPERITONEUM: Again seen is a multilobulated retroperitoneal hematoma on the right. The majority of the hematoma is stable with the exception of the most inferior component which is larger. The new component measures 12.8 x 7.9 cm where previously measured 8.7 x 7.1 cm. The hematoma is without high attenuation camilo e to suggest interval rebleed. No air is observed to suggest abscess. BLADDER: Sloan balloon present within the urinary bladder which is totally decompressed. REPRODUCTIVE: Within normal limits. INGUINAL: There is no lymphadenopathy. Bilateral inguinal hernias. The left contains fat. The right contains a small amount of fluid. MUSCULOSKELETAL: Within normal limits for patient age. CONCLUSION: 1. Retroperitoneal hematoma is slightly larger within its inferior portion relative to the prior exam . No acute hemorrhage seen to suggest recent rebleed. No findings to suggest interval infection. 2. Bilateral pleural effusions. These are larger than the prior study. 3. Small volume free fluid within the belly. Candido Mednoza Jr., MD on May 10, 2017 at 15:53 Board Certified Radiologist. This report was verified electronically.
[2017-05-10] MEDS: MICAFUNGIN INJ 150 MG in SODIUM CHLORIDE 0.9% INJ 100 ML IV SCH (16:58)
[2017-05-10] MEDS: FUROSEMIDE 20 MG/2 ML VIAL IV PUSH SCH (18:23)
[2017-05-10] MEDS: ATORVASTATIN 10 MG TAB PO SCH (20:51)
[2017-05-11] VITALS (23 sets, daily range): BP systolic 150–187; BP diastolic 70–89; PULSE 74–108; RESP 14–34; TEMP 95–99.2; O2SAT 94–100
[2017-05-11] MEDS: HYDROCORTISONE SOD SUCCINATE 100 MG VIAL IV PUSH SCH ×2 (00:27→10:40)
[2017-05-11 02:13] LABS: AUTOMATED NEUTROPHIL # 19.2 TH/MM3 (1.8-7.7); BASOPHIL # 0.1 TH/MM3 (0-0.2); BASOPHIL % 0.3 % (0.0-2.0); EOSINOPHIL # 0.1 TH/MM3 (0-0.4); EOSINOPHIL % 0.5 % (0.0-4.0); HEMATOCRIT 28.4 % (39.0-51.0); HEMO FLAGS AUTO DIFF; LYMPH % 4.4 % (9.0-44.0); MEAN CELL VOLUME 84.6 FL (80.0-100.0); MEAN CORPUSCULAR HGB CONC 33.1 % (32.0-36.0); MONO % 6.1 % (0.0-8.0); NEUT % 88.7 % (16.0-70.0); PLATELET COUNT 256 TH/MM3 (150-450); RED BLOOD COUNT 3.36 MIL/MM3 (4.50-5.90); RED CELL DISTRIBUTION WIDTH 17.2 % (11.6-17.2); WHITE BLOOD COUNT 21.7 TH/MM3 (4.0-11.0)
[2017-05-11] MEDS: oxyCODONE HCL ORAL CONC 5 MG/0.25 ML SYRINGE PO SCH ×6 (02:26→22:17)
[2017-05-11 02:45] LABS: BICARBONATE 15.8 MEQ/L (21.0-32.0); POTASSIUM 3.7 MEQ/L (3.5-5.1)
[2017-05-11 03:23] LABS: BANDS 13 % (0-6); METAMYELOCYTES 5 % (0-1); PLATELET ESTIMATE SMEAR NORMAL (NORMAL); PLATELET MORPHOLOGY NORMAL (NORMAL); POLYS (SEG NEUTROPHILS) 74 % (16-70); SCAN/DIFF FINAL DIFF MANUAL; WBC DIFF SAMPLE 100
[2017-05-11] MEDS: INSULIN NovoLIN REGULAR SUPPLEMENTAL SCALE SQ SCH ×6 (05:23→20:57)
[2017-05-11] MEDS: ALBUMIN 25% INJ 100 ML IV SCH ×2 (05:24→17:23)
[2017-05-11] MEDS: RESP: ALBUTEROL 2.5 MG/IPRATROPIUM 0.5 MG NEB (PRN) NEB (07:42)
[2017-05-11] MEDS: CHLORHEXIDINE 0.12% (ORAL KIT) 15 ML CUP MT SCH ×2 (08:43→20:56)
[2017-05-11] MEDS: COLLAGENASE OINT 30 GM TUBE TOPICAL SCH (08:44)
[2017-05-11] MEDS: CHOLESTYRAMINE 4 GM PACKET G-TUBE SCH ×2 (08:44→20:57)
[2017-05-11] MEDS: SODIUM CHLORIDE 0.9% FLUSH 10 ML FLUSH IV FLUSH SCH ×3 (08:45→20:58)
[2017-05-11] MEDS: FUROSEMIDE 20 MG/2 ML VIAL IV PUSH SCH ×2 (08:51→17:23)
--- NOTE | 2017-05-11 09:25 | HHI.CCPN ---
Subjective Remarks/Hospital Course Date of admission: 01/22 Date of critical care medicine consult 02/10 due to acute hypoxemic respiratory failure requiring emergent intubation 62-year-old male with a past medical history of hypertension, hyperlipidemia, diabetes mellitus, gout, uric acid kidney stones, kidney disease of unknown stage who originally presented to [facility] emergency department on 01/22 after a fall in which he sustained a right distal ulna fracture. He had been experiencing a gradual primarily lower extremity weakness as well as upper extremity weakness that was progressive. Neurology consult was obtained. MRI revealed no acute stroke. He had multifocal white matter changes. Tiny lacunar infarcts of the brainstem. Lumbar MRI report states L4-L5 disc protrusion with cetnral canal stenosis. Dr. Blackwell evaluated and states no cord compression on MRI C/T spine and recommended nonoperative management. Symptoms were felt to be consistent with transverse myelitis and he underwent Solumedrol 250 mg IV q6 hours 01/27-02/02. He also was found to have occlusive thrombus in the bilateral posterior tibial veins. Heparin was being avoided because he had traumatic lumbar puncture on 01/26 and 02/01. IVC filter was placed 01/25. He was undergoing physical therapy, reportedly making some improvements with plan to eventually discharged home with his son (max assist standing, and bed to chair per PT note). Apparently he had some vomiting the evening of 02/09 and additional vomiting on 02/10. He had a fever 102.8 on 02/09. Last recorded bowel movement was 02/03. Tonight he had acute onset of severe hypoxemia and respiratory distress. [facility] called and he was brought emergently to [facility] where his sats were 64% on 100% nonrebreather with mean arterial pressure 44. He was emergently intubated, CVL and art line placed. He is in septic shock. SUBJ: 02/11: Patient remains intubated sedated, critically ill. FiO2 reduced to 80% after increasing PEEP to 12. In severe septic shock Levophed at 16 mcg/m, vasopressin at 0.04 international units. D/W vascular surgery Dr. Enciso. He performed bedside Left upper extremity incision and debridement and excision of septic cephalic vein. 02/12: Remains intubated sedated profoundly septic, in shock on vasopressin and 7 mcg/min Levophed. FiO2 has improved to 45%, WBC count remains elevated with 20 ,000 white count significant left shift. Slight improvement in creatinine 2.9 urine output 750 ml 24 hours. 2-D echo shows LV ejection fraction 20-25%, no vegetation reported. Blood cultures 4 staph aureus. Wound culture pending 02/13: Remains critically ill but stable to improving. WBC count is down to 16, creatinine improving to 2.36. Off all pressors. Urine output also improving. 1.5L in 24 hours 02/14: Extubated 02/13. Tolerating well. WBC now down to 12.8. Creat improving 2.3 to 2. UO 3.4L. remains off all pressors. Was started on Precedex yesterday night for agitation, currently on 0.5 g per KG per hour. Chest x-ray shows left more than right air space disease 02/20/17 Re consult: 62-year-old male who was originally admitted for lower extremity weakness and found to have what was thought to be possible transverse myelitis. His hospital course his included a healthcare associated pneumonia, septic thrombophlebitis, DVT. He was most recently in the hospital floor where he had significant nausea and vomiting and diarrhea. His C. difficile test was recently negative. However, he has experienced worsening acute on chronic renal failure, hypotension, tachycardia, and severe hypoxemia. He did have a bout of vomiting earlier today, and his hospitalist attending suspects that he may have aspirated. He arrives by rapid response to the ICU with a nonrebreather in place in severe respiratory distress with SPO2 of 85%. I emergently intubate the patient, see separate procedure note for details. At this point the patient was hypotensive and tachycardic. He does have a history of an EF of 20%, however clinically he appears in florid septic shock. I placed central line and arterial line started vasopressors and gentle IV fluid resuscitation with 1 L of LR. Patient today was empirically broadened to vancomycin and Zosyn from his oxacillin which was initially treating MSSA bacteremia. He is recultured. Critical-care medicine is consulted to evaluate and manage his worsening multiorgan system failure and decompensated septic shock 02/21: Patient remains intubated sedated. Becomes anxious tachypnea on sedation lightening. Chest x-ray shows mild left lower lobe infiltrate. WBC count is slightly improved today from 23.2 t0 21. C Diff negative. UO adequate, creat slightly worsening. 1.57 today 02/22: Remains intubated sedated tolerated CPAP yesterday, plan is for EGD/ Colonscopy. WBC count back to normal. UO adequate. Creat stable 02/23: Tolerating CPAP trials following commands. Will do a spontaneous breathing trials. Status post EGD colonoscopy yesterday -Gastritis, esophagitis. Diverticulosis and multiple polyps. Urine output adequate but creatinine increasing to 1.7 with patient requiring multiple straight catheterization. We'll reinsert Sloan. 02/24: Breathing comfortably 24 hours after extubation. Protects airway well. 02/25: Excoriate bottom, will place rectal FMS. Start pureed diet. 02/26: Afebrile. Complaining of nausea and vomiting this afternoon. Increased stool output. Continue potassium replacement today. 02/27: 10 PM overnight, acutely hypotensive. Received 3 units PRBCs. Antibiotic coverage broadened to piperacillin/tazobactam, cortisol and 1 dose of vancomycin. Oxacillin drip currently on hold. Symptomatically, patient continues to vague abdominal pain/nausea vomiting which is unchanged for the past several days. Lipase elevated yesterday. Lactic acid normal. Troponin normal. Urinary retention after removal of Sloan. Straight catheter 1300. Cc 02/28: New diagnosis large retroperitoneal hematoma. Received 10 PRBC, 14 FFP, 2 platelets, 1 cryo-, 6 g calcium chloride, 2 is magnesium sulfate and 4 mg Bumex. CTA abdomen revealed possible arterial bleeds iliac, lumbar. Patient is currently on norepinephrine and epinephrine drips and possible need right nephrostomy tube placement due to large hematoma compressing ureter. Intra-abdominal bladder pressures are currently 13 03/01: Afebrile. Received 25 g albumin and 1 unit PRBCs overnight. Intra- abdominal bladder pressures currently 19. Currently on 3 micrograms per minute of norepinephrine. [id number] 1 out of 4 on 4 mics grams per kilogram per minute of cisatracurium. 03/02: Slightly hypothermic overnight. Hemoglobin appears to have stabilized. Troponin bump overnight likely secondary to demand ischemia from hypotension. Hemodynamically stable off all vasopressors. 03/03: Received 1 PRBCs overnight. 3 units currently. Off all vasopressors. Likely rebleeding. Stool is dark. 03/04: Remains unstable. Ventilator dependent. 03/05: afebrile. hgb stable. 03/06: bumex drip started overnight. good uop after bumex initiated. still grossly volume overloaded. Cr downtrending. more awake with transition to propofol. still too volume overloaded to tolerate extubation. hgb stable. 03/07: Afebrile. Tolerating tube feeds at goal with Nepro. Positive BM. On low-dose fentanyl and propofol drips. Potassium currently being replaced. 03/08: Eyes will open on ventilator. Afebrile. Tolerating tube feeding. Failed PSV trial yesterday due to apnea. 03/09: Following commands. Tmax 101. Tolerating tube feeding. One hour PSV trial yesterday. Currently tolerating well so far today 1.5 hours 03/10: Low-grade temperatures. Tolerating PSV trial 10 hours yesterday. Currently at 5/5 at 35%. We'll probably attempt extubation a.m. after hemodialysis. 03/11: Extubated currently in 4 L nasal cannula. Thick secretions thick clear with cough. Currently afebrile. Tolerating diet previously. 03/12: Sleepy this morning but arouses. Following commands. Refusing diet at the present time. On 2 L nasal cannula. 03/13: Patient reintubated last night for worsening respiratory status. Currently sedated on mechanical ventilation. Became hypotensive following intubation and is on Levophed 20 mics per minute. 03/14: Sedated, orally intubated on mech vent at the time of my evaluation this AM, subsequently underwent perc trach placement. Remains on levophed for pressor support. Transfused 1 unit PRBCs today. Persisten 03/15: Trach site clean, dry. CXR with bilateral basilar infiltrates. 03/16: Pulmonary congestion persists. Clinical condition not improving. Prognosis becoming increasingly bleak. 03/17: Glucose intolerance worse. No improvement in neurological function. 03/18: Remains on mechanical ventilation via tracheostomy. Off pressors now. Neurologic status remains poor. 03/19: Drowsy, encephalopathic, arousable. On mechanical ventilation via tracheostomy. Levemir increased for hyperglycemia today. Remains off pressors 03/20: More awake, moves both upper extremities. On mechanical ventilation via tracheostomy. Daily C Pap trials ongoing. 03/21: Awake and alert. On mechanical ventilation via tracheostomy. Opens and closes eyes on command. 03/22: Awake and alert. Tolerated T PIECE for 7 hours yesterday. Dialyzed today. 03/23: Currently on T piece trial. Status post dialysis yesterday on 3 L. Awake and alert. Wants to eat. 03/24: Currently afebrile. Hemodialysis catheter discontinued yesterday from left IJ. Persistent leukocytosis noted. Potassium will be replaced. Furosemide 40 mg twice a day IV to 20 mg IV twice a day 03/25: WBC count unchanged. Patient on T piece with humidified air greater than 48 hours, tolerating it well. Reconsulted 04/12: The patient was transferred emergently from the floor/ [facility]. Patient was initially seen by radiology scheduler Dr. Estrada, and the patient was noted to be tachypneic on T piece of 40%. ABGs were performed which showed a PaO2 of 60 on T piece of FiO2 of 40%. Chest x-ray was performed which showed loss of entire left hemidiaphragm tutoring assistant consolidation in the left lower lobe. Concern for mucus plugging versus fluid. The patient was transferred emergently to [facility] placed on a ventilator CT of the chest is pending. Upon arrival in the room the patient is alert and oriented, mouthing words, nodding head to yes and no questions O2 sat is 100% but patient is currently on mechanical ventilation. Currently in no respiratory distress. 04/13: Tmax 99.8. The patient's oxygen requirements have decreased currently FiO2 35% with a PaO2 1 blood gas of 85, O2 saturation 100%. No respiratory distress noted. Patient underwent CT of the chest yesterday noted pleural effusions left greater than right, diagnostic/and therapeutic CT thoracentesis plan for this a.m.. 04/14: Patient underwent CT-guided thoracentesis of the right side with approximately 600 cc withdrawn. Today radiology scheduler Dr. LABOY in and up size indwelling 6.0 Shiley to a 8.0 Shiley. Minimal bleeding noted around the site. X-ray improving. Patient started on CPAP trials today, as well as tube feeds were initiated. 04/15: Placed on T piece this morning via tracheostomy. Appears to be tolerating it. Laying in bed not in any acute distress. 04/16: Awake and alert. Tolerating T piece. Tolerating PEG feeds. 04/17: Awake and alert. Tolerating T piece. Tolerating tube feeds via PEG 04/18: Awake and alert. Tolerating TPs. Tolerating tube feeds. Passed swallow eval 04/19: Awake and alert. Remains on T piece. Wants to move out of ICU as he indicates to me once again as he has for the past few days. Awaiting CIC bed 04/20: Awake and alert. Remains on T piece. Developed hypotension last night for which she was transiently on Levophed however has been off since early this morning. ID adjusting antibiotics and working up for new sepsis. 04/21: Awake and alert. On T piece. Awaiting CIC bed for the last few days. 04/22: Awake and alert. Remains on T piece. Received 500 cc normal saline this morning for tachycardia. 04/23 No events overnight. Remains on TP's with 35% FIO2. Afebrile. 04/24: Resting comfortably. Got short of breath with Passy-Rafy valve which was taken off. 04/25: Remains on T piece. Awaiting transfer out of ICU. 04/26: Remains on T piece. Still awaiting transfer out of ICU since 04/17. 04/27 Patient became hypotensive, bradycardic and hypoxic, ABG on TP's last night showed acute hypercapnic resp acidosis (PH 7.10, CO2: 80) he was subsequently placed on mechanical ventilator. Patient was given Albumin, 2u PRBC and started on Levophed 3mics. Renal function worse today with Cr: 1.53 from 1.13 04/28 No events overnight off Levophed since yesterday. On no sedation. Afebrile. 04/29 Patient is on ventilator via trach. T;100.4 04/30 Patient remains on ventilator via trach. Afebrile. 05/01 No events overnight. Afebrile. 05/02 No events overnight. On ventilator via trach. T: 100.1 last night. 05/03 Patient remains on ventilator via trach. 05/04 No events overnight. Afebrile. Tolerating tube feeds. 05/05: more hypoxic this morning with increased secretions. fio2 rising. ID on board. leukocytosis persists. 05/06: continues to clinically decline. hypotensive and anemic. no evidence of GI bleeding, but acute drop in hgb. no uop overnight. restarted norepinephrine this morning. 2 units prbc ordered. recultured. had discussion with his son: with recurrent bleeding and worsening septic shock, unlikely to survive this hospital stay. son continues to press for aggressive measures. 05/07: continues to worsen overall. mental status still declining. off vasopresors this morning, but kidney injury worsening. wbc uptrending. ID still involved. hgb stabilized. likely too unstable for travel to CT scan. Palliative re-engaged to have further discussions with Son. I spoke with him yesterday, and Dr. Hogan spoke with him again overnight. likely poor prognosis at this point. 05/08: no improvements or changes. off vasopressors. renal function continues to worsen. 05/09: BREEZY worsening. 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 no changes. remains off pressors. wbc slightly downtrended. overall poor prognosis. palliative still involved. 05/10 Patient remains on ventilator via trach. Afebrile. Renal function is gradually worsening. TF held overnight for emesis. 05/11 No events overnight. Afebrile. Repeat CT abd/pelvis yesterday showed retroperitoneal hematoma is slightly larger within its inferior portion relative to the prior exam. No acute hemorrhage seen to suggest recent rebleed Objective Vital Signs Date Time Temp Pulse Resp B/P (MAP) Pulse Ox O2 Delivery O2 Flow Rate FiO2 05/11/17 08:00 83 05/11/17 08:00 97.7 17 180/87 (118) 98 05/11/17 07:45 35 Intake and Output 05/11/17 05/11/17 05/12/17 08:00 16:00 00:00 Intake Total 250 ml Output Total 625 ml Balance -375 ml Result Diagram: 05/11/17 0144 05/11/17 0144 Other Results Laboratory Tests Test 05/10/17 17:22 05/11/17 01:44 Potassium Level 3.2 MEQ/L 3.7 MEQ/L White Blood Count 21.7 TH/MM3 Red Blood Count 3.36 MIL/MM3 Hemoglobin 9.4 GM/DL Hematocrit 28.4 % Mean Corpuscular Volume 84.6 FL Mean Corpuscular Hemoglobin 28.0 PG Mean Corpuscular Hemoglobin Concent 33.1 % Red Cell Distribution Width 17.2 % Platelet Count 256 TH/MM3 Mean Platelet Volume 8.2 FL Neutrophils (%) (Auto) 88.7 % Lymphocytes (%) (Auto) 4.4 % Monocytes (%) (Auto) 6.1 % Eosinophils (%) (Auto) 0.5 % Basophils (%) (Auto) 0.3 % Neutrophils # (Auto) 19.2 TH/MM3 Lymphocytes # (Auto) 1.0 TH/MM3 Monocytes # (Auto) 1.3 TH/MM3 Eosinophils # (Auto) 0.1 TH/MM3 Basophils # (Auto) 0.1 TH/MM3 CBC Comment AUTO DIFF Differential Total Cells Counted 100 Neutrophils % (Manual) 74 % Band Neutrophils % 13 % Lymphocytes % 6 % Monocytes % 2 % Neutrophils # (Manual) 20.0 TH/MM3 Metamyelocytes 5 % Differential Comment FINAL DIFF MANUAL Platelet Estimate NORMAL Platelet Morphology Comment NORMAL Blood Urea Nitrogen 146 MG/DL Creatinine 3.18 MG/DL Random Glucose 125 MG/DL Calcium Level 8.0 MG/DL Sodium Level 131 MEQ/L Chloride Level 99 MEQ/L Carbon Dioxide Level 15.8 MEQ/L Anion Gap 16 MEQ/L Estimat Glomerular Filtration Rate 20 ML/MIN Imaging Last Impressions Chest X-Ray 05/10/17 0000 Signed Impressions: Service Date/Time: April 08:58 - CONCLUSION: Pulmonary vascular congestion remains. Duy Genao MD Abdomen/Pelvis CT 05/10/17 0000 Signed Impressions: Service Date/Time: April 15:38 - CONCLUSION: 1. Retroperitoneal hematoma is slightly larger within its inferior portion relative to the prior exam. No acute hemorrhage seen to suggest recent rebleed. No findings to suggest interval infection. 2. Bilateral pleural effusions. These are larger than the prior study. 3. Small volume free fluid within the belly. Candido Mendoza Jr., MD Thoracentesis 04/13/17 1054 Signed Impressions: Service Date/Time: Thursday, April 13, 2017 15:26 - CONCLUSION: Uncomplicated CT-guided right thoracentesis. Candido Mendoza Jr., MD Chest CT 04/12/17 1558 Signed Impressions: Service Date/Time: March 17:51 - CONCLUSION: 1. Slight increase in size of bilateral effusions and basilar atelectasis, left greater than right compared with February 27. Tracheostomy in good position. Trace Holloway MD Renal Ultrasound 04/02/17 0000 Signed Impressions: Service Date/Time: Sunday, April 02, 2017 16:59 - CONCLUSION: Limited exam with the left kidney being unable to be evaluated in the bladder not distended. There do appear to be multiple shadowing stones at the right kidney without hydronephrosis. Angelo Manzo MD Wrist X-Ray 03/27/17 0000 Signed Impressions: Service Date/Time: Monday, March 27, 2017 13:21 - CONCLUSION: 1. No acute fracture is identified. A portion of the previously documented distal ulna fracture remains visualized. 2. 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 Angelo Allen MD Aortography 02/28/17 0000 Signed Impressions: Service Date/Time: Tuesday, February 28, 2017 08:01 - CONCLUSION: 1. Active hemorrhage from distal right lateral sacral and iliolumbar branches successfully coil and Gelfoam embolized, as above. Juan Bhakta MD Abdomen X-Ray 02/26/17 0000 Signed Impressions: Service Date/Time: Sunday, February 26, 2017 14:52 - CONCLUSION: 1. Nonobstructive bowel gas pattern. Juan Bhakta MD Upper Extremity Ultrasound 02/10/17 0000 Signed Impressions: Service Date/Time: Friday, February 10, 2017 18:46 - CONCLUSION: Occlusive thrombus in the cephalic and basilic veins. Benjamin Person MD Lung Scan- Nuclear Medicine 02/10/17 0000 Signed Impressions: Service Date/Time: Friday, February 10, 2017 22:17 - CONCLUSION: Low probability pulmonary embolism. Candido Patton MD Head CT 02/10/17 0000 Signed Impressions: Service Date/Time: Friday, February 10, 2017 23:51 - CONCLUSION: Negative noncontrast CT brain. Candido Patton MD Lumbar Puncture Fluoroscopy 02/01/17 0000 Signed Impressions: Service Date/Time: January 09:35 - CONCLUSION: Uncomplicated fluoroscopically guided lumbar puncture. CSF was clear. Nabeel Peralta MD Head Magnetic Resonance Angiography 01/27/17 0000 Signed Impressions: Service Date/Time: Friday, January 27, 2017 10:33 - CONCLUSION: No intracranial vascular abnormality is identified. There is no aneurysm visualized. Angelo Allen MD IVC Filter Placement X-Ray 01/25/17 Signed Impressions: Service Date/Time: January 10:29 - CONCLUSION: Uncomplicated inferior vena cava filter placement as above. Yung Fowler MD Thoracic Spine MRI 01/24/17 Signed Impressions: Service Date/Time: Tuesday, January 24, 2017 22:29 - CONCLUSION: 1. Mild degenerative spondylosis most prominently at T11-L1 with slight effacement of the anterior thecal sac and left lateral recess. No significant neural foraminal stenosis. 2. No acute fracture. Juan Bhakta MD Lumbar Spine MRI 01/23/17 Signed Impressions: Service Date/Time: Monday, January 23, 2017 17:01 - CONCLUSION: 1. At L4-5 is a broad-based disc protrusion with severe central canal and lateral recess stenosis and flattening of the exiting right L4 nerve root. 2. L5-S1 there is a disc protrusion and moderate stenosis with flattening of the exiting L5 nerve roots bilaterally. 3. At L3-4 there is a moderate to severe central stenosis and lateral recess stenosis with mild foraminal stenosis. 4. No acute fracture or spondylolisthesis. Trace Holloway MD Lower Extremity Ultrasound 01/23/17 Signed Impressions: Service Date/Time: Monday, January 23, 2017 09:53 - CONCLUSION: Bilateral focal lower extremity DVT involving the posterior tibial veins. Angelo Garrido MD Cervical Spine MRI 01/23/17 Signed Impressions: Service Date/Time: Monday, January 23, 2017 17:01 - CONCLUSION: 1. Multilevel cervical spine degenerative changes as above. 2. Mild degrees of spinal stenosis at C3/C4-C6/C7. No cord compression or cord signal abnormality. 3. Age indeterminate left paracentral/foraminal disc protrusion at C6/C7. 4. Multilevel foraminal stenosis, most severe on the left at C6/C7. Please see individual levels above. 5. No fracture or subluxation of the cervical spine. Angelo Garrido MD Brain MRI 01/23/17 Signed Impressions: Service Date/Time: Monday, January 23, 2017 17:01 - CONCLUSION: 1. No acute stroke or other acute intracranial abnormality demonstrated. 2. Moderate severity chronic white matter changes, nonspecific but most likely related to chronic small vessel disease. 3. Few scattered tiny lacunar infarcts of the brainstem. 4. Given the findings are not entirely specific, clinical evaluation for possible multiple sclerosis recommended. Angelo Garrido MD Knee X-Ray [id number] Signed Impressions: Service Date/Time: Sunday, January 22, 2017 21:17 - CONCLUSION: 1. Evidence of moderate to large joint effusion. 2. No acute fracture or malalignment. 3. Mild 3 compartment osteoarthritic change. Benjamin Person MD Hip and Pelvis X-Ray [id number] Signed Impressions: Service Date/Time: Sunday, January 22, 2017 21:10 - CONCLUSION: 1. Mild to moderate degenerative change of both hips with no acute fracture or malalignment. There is flattening and remodeling of the right humeral head. Benjamin Person MD Objective Remarks GENERAL: 62-year-old male, resting in bed, on mechanical ventilation via trach HEENT: Normocephalic. Atraumatic. Pupils equal, round, reactive. NECK: Tracheostomy in place CHEST: b/l equal air entry CARDIOVASCULAR: normal rate, regular rhythm. ABDOMEN distended. No rigidity. Umbilical hernia is reducible. No guarding. PEG tube in place : Positive scrotal edema Sloan in situ MUSCULOSKELETAL: Pulses 2+. 1+ bilateral upper and lower extremity edema. NEUROLOGICAL: RASS -3. obtunded. weakly withdraws to pain x 4. Procedures 01/25/2017- Retrievable IVC Filter placement 01/26/17-lumbar puncture with fluoroscopy-by interventional radiology 02/01/17- lumbar puncture fluoroscopy by interventional radiology 02/10/17- Endotracheal Intubation 02/10/17-left IJ central venous line placed 02/10/17-left femoral arterial line placed 02/11/17-Diagnostic and therapeutic bronchoscopy with bronchoalveolar lavage 02/11/17-Left upper extremity incision and debridement with excision of septic cephalic vein 02/13/17- Extubated 02/20/17- endotracheal intubation 02/20/17- Left subclavian central line placement 02/20/17-Right radial A-line placement 02/22/17-EGD/colonoscopy 02/28/17-right radial a line 02/28/17- Endotracheal intubation 02/28/17- right sided introducer catheter placement 02/28/17- Right IJ central line placement 02/28/17-Right chest tube placement 02/28/17- Embolization of inferior and superior sacral branches of right internal iliac artery 03/01/17- Hemodialysis access catheter 03/03/17-Right IJ central line placement 03/11/17-Extubated 03/13/17- Endotracheal intubation 03/14/17-Tracheostomy placement, trach downsized to 6.0 Michelleley 03/30/17 03/15/17-PEG tube placement 04/11/17-CT Chest 04/13/17-thoracentesis right 600 cc removed A/P Problem List: (1) Septic shock ICD Code: A41.9 - Sepsis, unspecified organism; R65.21 - Severe sepsis with septic shock Status: Acute (2) Acute respiratory failure ICD Code: J96.00 - Acute respiratory failure, unspecified whether with hypoxia or hypercapnia Status: Chronic (3) Thrombophlebitis arm ICD Code: I80.8 - Phlebitis and thrombophlebitis of other sites (4) Aspiration pneumonia ICD Code: J69.0 - Pneumonitis due to inhalation of food and vomit Status: Acute (5) Atelectasis of left lung ICD Code: J98.11 - Atelectasis Status: Acute (6) Quadriparesis ICD Code: G82.50 - Quadriplegia, unspecified Status: Acute (7) DVT (deep venous thrombosis) ICD Code: I82.409 - Acute embolism and thrombosis of unspecified deep veins of unspecified lower extremity (8) Altered mental status ICD Code: R41.82 - Altered mental status, unspecified Status: Acute (9) CKD (chronic kidney disease) stage 3, GFR 30-59 ml/min ICD Code: N18.3 - Chronic kidney disease, stage 3 (moderate) Status: Chronic (10) Acute renal failure ICD Code: N17.9 - Acute kidney failure, unspecified Status: Acute (11) Diabetes mellitus ICD Code: E11.9 - Type 2 diabetes mellitus without complications Status: Chronic (12) Distal end of ulna fracture, closed ICD Code: S52.609A - Unspecified fracture of lower end of unspecified ulna, initial encounter for closed fracture Status: Acute (13) Gout ICD Code: M10.9 - Gout, unspecified Status: Chronic Assessment and Plan Assessment: 62yM with chronic multi-organ dysfunction now with recurrent septic shock. hgb stable, active bleeding has appeared to stop at this point. goals remain aggressive, although DNR code status. no improvements. renal function worsens: poor candidate for recurrent acute renal replacement therapy. overall poor prognosis. NEURO/PSYCH: Acute metabolic encephalopathy- persistent, worsening this morning. Quadriparesis secondary to suspected transverse myelitis Recurrent falls On no sedation. Monitor neuro status. Suspected transverse myelitis. Received methylprednisolone 250 mg IV every 6 hours 01/27-02/02, started back on hydrocortisone 02/21/17, initially tapering to 50 mg IV every 8 hours starting received 1 dose at 2100 prior to becoming hypotensive. weaning hydrocortisone taper and stopped 03/09. Resumed hydrocortisone 50mg IV Q6hrly on 03/14 as patient became hypotensive following intubation on 03/13 requiring levophed. LP 01/26 and 02/01. CSF culture negative 01/26, 02/01 Oligoclonal bands negative. CSF/serum IgG index is not elevated. VDRL nonreactive. Cryptococcal antigen negative. Brain MRI 01/23 no acute stroke. Few scattered lacunar infarcts of the brainstem. Moderate chronic white matter changes. MRI cervical/thoracic spine- mild spinal stenosis C3/C4 to C6/C7. No cord compression. RPR negative Neurology has been following, Dr. Crenshaw. Repeat CT brain 02/10 - negative Continue PT/OT oxycodone 5mg po q4h scheduled hydrocortisone taper. RESP: Acute hypoxemic respiratory failure - persistent. Healthcare associated pneumonia/Aspiration Pneumonia - recurrent. S/P Right-sided chest tube 02/28 Continue with vent support keep sat >92% Bronchodilators, pulm toilet, trach care s/p perc tracheostomy 03/14. Pulmonology following Dr. Estrada 04/13 CT guided thoracentesis scheduled emergently as discussed with Dr. Estrada - 600cc removed (right) 04/14-tracheostomy up sized to 8.0 [place] by radiology scheduler Dr. Estrada at bedside CV: Systolic heart failure likely chronic with ejection fraction 20-25% Hyperlipidemia History of hypertension Mild TR Sinus tachycardia Elevated troponin likely type II demand ischemia Septic Shock Hemorrhagic shock Place on Hydralazine 50mg Q8-Monitor HR and BP keep MAP>65mmHg Atorvastatin 10 mg by mouth daily for dyslipidemia. 2-D echocardiogram 01/11 revealed EF 20-25%. Mild TR. Pulmonary arterial pressures were normal around 20 On Hydrocortisone 25mg Q12 GI: Large right retroperitoneal hematoma - resolved. Erosive esophagitis Adenomatous/hyperplastic colon polyps Severe acute protein calorie malnutrition Nausea/vomiting - resolved. Diarrhea Gastritis Diverticulosis Internal and external hemorrhoids Hiatal hernia Elevated lipase Resume Tube feeds Nepro with goal rate 40ml/hr) 02/27 CT chest/abdomen and pelvis - 9.4 x 7.5 renal and 16 x 12 cm right psoas muscle hematoma. Fluid around liver and spleen. Right-sided nephrolithiasis CTA abdomen 02/28 - possible blushing around iliac/lumbar vessels Discussed with IR. s/p attempted embolization CT abdomen and pelvis 02/10 atrophic left kidney. Bilateral inguinal hernias fat- containing. Nonobstructing 12 mm right kidney stone repeat CT abd/pelvis did not show evidence of obstruction. patient clinically has been having diarrhea (c. diff negative 02/19). also with nausea/vomiting of unclear etiology. EGD/Colonoscopy-02/22/17 showed gastritis esophagitis, hiatal hernia, diverticulosis and multiple polyps in descending colon and sigmoid which were snared biopsied. Biopsy pending Status post PEG tube placement Lansoprazole 30 mg twice a day for GI prophylaxis FEN/RENAL: Acute kidney injury in the setting of Chronic kidney disease stage 3-4 History of uric acid kidney stones with prior stent BPH Nonfunctioning left kidney Monitor renal function, electrolytes replacement as needed Cr: 3.18 , on Lasix 20mg IV Q12 Renal is following- Dr. Liao. IV Albumin RIOS/SPEP negative. 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 Recommended nephrostomy tube if obstruction Nephrology consulted, off hemodialysis. Making urine. ICU electrolyte replacement protocol Last IHD was 03/22 hold free water. ID: Septic shock- recurrent Abscess and Suppurative thrombophlebitis left upper extremity MSSA bacteremia Klebsiella UTI ESBL positive Acute aspiration pneumonia/HCAP 04/27 Sputum cx: Pseudomonas, Urine cx: Ivania Bustillo , BC: 05/24 bottles: Coag negative staph likely contaminant 04/29 BC: NGTD 05/01 Wound cx: Pseudomonas, Group D enterococcus, GNR Continue with abx per ID ( on Micafungin)monitor for signs of infections ( fever , WBC) Previously treated with Bactrim, ertapenem, intermittent vancomycin, nafcillin Blood cultures 2, UA ESBL positive Klebsiella UTI Sputum 03/14 - Pseudomonas came back resistant to imipenem, Stenotrophomonas maltophilia C-diff PCR negative wound service is following. stage IV sacral ulcer, ulcer right ankle/LE CT abd/pelvis 05/10: Retroperitoneal hematoma is slightly larger within its inferior portion relative to the prior exam. No acute hemorrhage seen to suggest recent rebleed HEME: Acute blood loss anemia- worsening. DVT, bilateral posterior tibial vein, IVC filter Septic thrombophlebitis with occlusive thrombus mid cephalic and basilic vein side Monitor CBC s/p transfusion 2units PRBC ( 04/26) Received 10 PRBC, 14 FFP, 2 platelets, 1 cryo-02/28 Received 3 units PRBCs Ultrasound 01/23/17 - Bilateral lower extremity with occlusive posterior tibial vein DVTs. Heparin was initially started for DVT but was placed on hold due to LP with suspected traumatic tap. Currently holding full anticoagulation with enoxaparin 100 mg IV twice a day due to anemia as of 02/26 IVC filter was placed 01/25/17. Ultrasound LUE 02/10 occlusive thrombus mid cephalic vein, basilic vein.s. Transfuse 3 units PRBCs 02/27 Transfuse 2 units PRBCs 03/01. Transfused 1 unit PRBCs on 03/14 transfused 2 units prbc 05/06 ENDO: Diabetes mellitus Hypoglycemia History of prior adrenal insufficiency with shock Gout Accu-Cheks to maintain euglycemia Novulin R every 4 hours. Low Regimen MSK: Right distal ulna fracture. Recommended nonoperative management. PROPH: Lansoprazole 30 mg twice a day twice a day for stress ulcer prophylaxis. Has IVC filter. Therapeutic enoxaparin was placed on hold for retroperitoneal hematoma ACCESS: Peripheral IV's Level 3 Problem Qualifiers (1) Aspiration pneumonia: (2) DVT (deep venous thrombosis): Qualified Codes: I82.443 - Acute embolism and thrombosis of tibial vein, bilateral (3) Acute renal failure: Qualified Codes: N17.9 - Acute kidney failure, unspecified (4) Diabetes mellitus: (5) Gout: Hood Madera MD May 11, 2017 09:25
[2017-05-11] MEDS ORDERED: hydrALAZINE HCL 20 MG/ML VIAL IV PUSH PRN (09:30)
[2017-05-11] MEDS: LANSOPRAZOLE SOLUTAB 30 MG TAB NG SCH ×2 (09:52→20:58)
[2017-05-11] MEDS: hydrALAZINE HCL 50 MG TAB PO SCH ×3 (09:52→22:17)
[2017-05-11] MEDS: QUEtiapine FUMARATE 25 MG TAB PO SCH (09:52)
[2017-05-11] MEDS: LACTOBACILLUS ACIDOPHILUS TAB PO SCH ×3 (09:52→17:22)
[2017-05-11] MEDS: TAMSULOSIN HCL 0.4 MG CAP PO SCH ×2 (09:54→20:58)
--- NOTE | 2017-05-11 12:29 | HHI.NPPN ---
Subjective History of Present Illness 61-year-old with history of urinary stone patient again got unstable has recurrent bouts of ICU admission requiring ventilation and respiratory care started having scrotal swelling and acute renal failure again, he had mild hyperkalemia and this was treated I have been reconsulted again Additional Remarks Patient had trach on vent, not in distress, open eyes spontaneously, on CPAP now. Review of Systems General Constitutional: Fatigue Objective Data Data 05/11/17 05/12/17 19:00 07:00 Intake Total 100 ml Balance 100 ml IV Total 100 ml Vital Signs Date Time Temp Pulse Resp B/P (MAP) Pulse Ox O2 Delivery O2 Flow Rate FiO2 05/11/17 12:00 83 05/11/17 12:00 35 05/11/17 12:00 97.5 83 14 172/80 (110) 99 05/11/17 11:00 80 18 178/80 (112) 98 05/11/17 10:00 91 22 187/86 (119) 99 05/11/17 10:00 91 05/11/17 09:00 87 16 187/89 (121) 99 05/11/17 08:15 35 05/11/17 08:00 83 05/11/17 08:00 97.7 83 17 180/87 (118) 98 05/11/17 08:00 35 05/11/17 07:45 99 35 05/11/17 07:45 35 05/11/17 06:00 89 05/11/17 04:12 98 35 05/11/17 04:00 35 05/11/17 04:00 87 05/11/17 04:00 97.5 87 19 177/88 (117) 97 05/11/17 02:00 92 05/11/17 01:49 97 35 05/11/17 00:00 35 05/11/17 00:00 99.2 108 23 160/70 (100) 94 05/11/17 00:00 108 05/10/17 22:27 94 35 05/10/17 22:00 92 05/10/17 20:00 35 05/10/17 20:00 96.3 84 22 129/58 (81) 93 05/10/17 20:00 84 05/10/17 18:00 82 05/10/17 18:00 96.4 82 23 156/71 (99) 93 05/10/17 16:00 87 05/10/17 16:00 35 05/10/17 15:58 99 100 05/10/17 15:58 95 35 05/10/17 14:00 87 -: 05/11/17 0144 05/11/17 0144 Physical Exam General Appearance: No Acute Distress, Pale Eyes Eye Exam: Pupils Equal Throat Throat Exam: Oral Mucosa [place] & Moist Neck Neck Exam: Neck Supple Pulmonary Resp Exam: Clear Bilaterally Cardiology CV Exam: Normal Sinus Rhythm Gastrointestinal/Abdomen GI Exam: Non-Tender, Distended Genitourinary Exam: Flank Non-Tender (scrotal edema) Extremeties Extremities Exam: Moderate Edema, Pitting Edema Neurologic Neuro Exam: Awake Assessment/Plan Problem List: (1) Acute renal failure ICD Codes: N17.9 - Acute kidney failure, unspecified Status: Acute Plan: Patient with pneumonia as, sepsis, acute renal failure Had pneumonia, developed sepsis with ARF. 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 Patient had been on dialysis earlier in hospitalization non oliguric ATN from sepsis He has multiple infections and pneumonia. Patient has improvement in the BP. Creatinine continue to increase. Urine out put is low. Creatinine slowly increasing, K is now normal. No urgent need for Dialysis at present. Weaning as tolerated. On IV Lasix. (2) CKD (chronic kidney disease) stage 3, GFR 30-59 ml/min ICD Codes: N18.3 - Chronic kidney disease, stage 3 (moderate) Status: Chronic Plan: Ultrasound revealed chronic kidney disease there is no kidney stones (3) Diabetes ICD Codes: E11.9 - Type 2 diabetes mellitus without complications Plan: Continue to monitor (4) Distal end of ulna fracture, closed ICD Codes: S52.609A - Unspecified fracture of lower end of unspecified ulna, initial encounter for closed fracture Status: Acute Plan: Orthopedic is following Problem Qualifiers (1) Acute renal failure: Qualified Codes: N17.9 - Acute kidney failure, unspecified Aicha Leonard MD May 11, 2017 12:29
[2017-05-11] MEDS: ALPRAZolam 0.25 MG TAB PO PRN (13:12)
--- NOTE | 2017-05-11 15:25 | HHI.IDPN ---
Note Infectious Disease Note ID COVERAGE: Patient had profuse vomiting of tube feed colored material yesterday. No vomiting overnight. Looks comfortable. Was hypothermic earlier. Bear hugger was placed. No longer on bear hugger. Now normothermic. Temp okay. WBC elevated. Estimated GFR = 20. Patient is a 62-year-old male, admitted to the hospital for evaluation of pain in his right wrist. He gave a history of falling about a week ago and apparently had immediate pain in the right wrist. He did not seek any medical attention initially because reportedly he was very busy. He eventually presented, and he was found to have a distal ulnar fracture on plain films. He also had some redness and swelling. Orthopedics saw the patient, and was being treated conservatively with the splint. During this hospitalization also he started complaining of generalized weakness but more so in his lower extremity than his upper extremity. He had swelling in both lower extremity which revealed evidence of DVT in the posterior tibial veins. Neurology had seen the patient and he underwent lumbar puncture which apparently was traumatic. Patient was therefore not given anticoagulation because of the traumatic LP, and he underwent placement of an IVC filter on January 25. Patient had another lumbar puncture on February 01. He was felt to have transverse myelitis, and he was given high-dose IV Solu-Medrol from January 27 to February 02. There was apparently some improvement in his weakness. The imaging studies done for his weakness showed some spinal stenosis, and neurosurgery was consult that and recommended that there was no surgical intervention to be done. Patient has been stabilizing, but last night apparently deteriorated, and he ended up getting intubated, and had significant hypotension requiring pressors. There was also an ultrasound done of his left upper extremity which showed DVT, and there was evidence of superior 2 thrombophlebitis. Vascular surgery was consult to it and he had IND on his left upper extremity. Patient has had some fevers since yesterday. 2 blood cultures were done yesterday and they're now reported as growing gram-positive cocci in [place] in clusters. He is currently sedated and intubated. He is on Levophed and vasopressin. A central line was placed as well as a femoral a line. He apparently had an IV in his left upper extremity and that was removed yesterday. Patient also has history of chronic kidney disease, and nephrology evaluated the patient. He was just being monitored for his renal insufficiency. Reconsulted 04/12 for low grade fever, leucocytosis, worsening CXR concern for new pneumonia. Lines Central line - 04/27 Allergies: Coded Allergies: levofloxacin (Verified Allergy, Severe, 01/22/17) Meds: Current Medications Medications (Trade) Dose Ordered Sig/Rosalia Route PRN Reason Start Time Stop Time Status Last Admin Dose Admin Sodium Chloride (NS Flush) 2 ml BID IV FLUSH 01/23/17 09:00 05/11/17 08:45 Ondansetron HCl (Zofran Inj) 4 mg Q6H PRN IVP NAUSEA OR VOMITING 01/23/17 00:30 05/10/17 20:52 Bisacodyl (Dulcolax Supp) 10 mg DAILY PRN RECTAL SEVERE CONSITIPATION 01/23/17 00:30 Atorvastatin Calcium (Lipitor) 10 mg HS PO 01/24/17 21:00 Future hold 05/10/17 20:51 Glucagon (Glucagon Inj) 1 mg UNSCH PRN OTHER HYPOGLYCEMIA-SEE COMMENTS 02/11/17 05:45 02/18/17 18:53 Tamsulosin HCl (Flomax) 0.4 mg Q12HR PO 02/17/17 15:00 Future hold 05/11/17 09:54 Lactobacillus Acidophilus (Lactinex) 1 tab TID PO 02/19/17 13:00 05/11/17 12:32 Dextrose (D50w (Vial) Inj) 25 ml UNSCH PRN IV PUSH HYPOGLYCEMIA-SEE COMMENTS 02/20/17 12:45 03/27/17 13:20 Chlorhexidine Gluconate (Peridex 0.12% Liq) 15 ml BID@08,20 MT 02/28/17 08:00 05/11/17 08:43 Sodium Chloride (NS Flush) UNSCH PRN IV FLUSH SEE PROTOCOL 03/01/17 13:00 Heparin Sodium (Porcine) (Heparin Inj) UNSCH PRN IV FLUSH SEE PROTOCOL 03/01/17 13:00 Sodium Chloride (NS Flush) DAILY IV FLUSH 03/04/17 09:00 05/11/17 08:51 Lansoprazole (Prevacid Odt) 30 mg BID NG 03/07/17 21:00 05/11/17 09:52 Acetaminophen (Tylenol 650 Mg/ 20 ml Liq) 650 mg Q6H PRN PO fever 03/09/17 10:15 04/30/17 12:01 Atenolol (Tenormin) 25 mg Q12HR PO 03/12/17 10:00 Future Hold 04/18/17 10:09 Epoetin Nico (Epogen Inj) 10,000 units UNSCH PRN IV PUSH WITH DIALYSIS 03/17/17 11:30 03/22/17 10:52 Nitroglycerin (Nitroglycerin 2% Oint) 2 inch Q6H PRN TOPICAL SBP>160, DBP>90 03/23/17 14:00 03/29/17 01:20 Amlodipine Besylate (Norvasc) 10 mg DAILY PO 03/28/17 09:00 Future Hold 04/19/17 08:16 Oxycodone HCl (Roxicodone Intensol Liq) 5 mg Q4H PO 04/01/17 18:00 05/11/17 13:13 Alprazolam (Xanax) 0.125 mg Q6H PRN PO anxiety 04/03/17 22:30 05/11/17 13:12 Miscellaneous (Pill Splitter) 1 ea UNSCH PRN OTHER SEE LABEL COMMENTS 04/03/17 22:45 Hyoscyamine Sulfate (Levsin Liq) 0.125 mg Q4H PRN G-TUBE Increase Secretions 04/06/17 15:00 04/12/17 10:09 Cholestyramine Resin (Questran 4 Gm Pkt) 4 gm Q12HR G-TUBE 04/08/17 21:00 05/11/17 08:44 Quetiapine Fumarate (SEROquel) 25 mg DAILY PO 04/09/17 09:00 05/11/17 09:52 Collagenase (Santyl Oint) 1 applic DAILY TOPICAL 04/10/17 09:00 05/11/17 08:44 Albuterol/ Ipratropium (Duoneb Neb) 1 ampule Q2HR NEB PRN NEB WHEEZING 04/12/17 17:00 05/11/17 07:42 Metoprolol Tartrate (Lopressor Inj) 2.5 mg Q6H PRN IV PUSH HR >120 04/23/17 01:15 Future Hold 04/23/17 09:36 Albumin Human 100 ml @ 60 mls/hr Q12H IV 04/30/17 17:00 05/11/17 05:24 Metoprolol Tartrate (Lopressor) 25 mg Q12HR PO 05/02/17 10:45 Future Hold 05/05/17 08:15 Insulin Human Regular (NovoLIN R SUPPLEMENTAL SCALE) 1 Q4HR SQ 05/08/17 12:00 05/11/17 12:32 Water (Free Water) VOLUME OF WATER: ( 200 ) ML Q6HR G-TUBE 05/09/17 00:00 Future Hold 05/09/17 12:00 Hydrocortisone Sodium Succinate (SoluCORTEF INJ) 25 mg Taper Q12H IV PUSH 05/08/17 23:00 05/12/17 22:59 05/11/17 10:40 Micafungin Sodium 150 mg/Sodium Chloride 100 ml @ 100 mls/hr Q24H IV 05/10/17 16:00 05/10/17 16:58 Furosemide (Lasix Inj) 20 mg BID@09,18 IV PUSH 05/10/17 18:00 05/11/17 08:51 Hydralazine HCl (Apresoline) 50 mg Q8HR PO 05/11/17 09:30 05/11/17 13:12 Hydralazine HCl (Apresoline Inj) 10 mg Q6H PRN IV PUSH SYS BP GREATER THAN 160 MMHG 05/11/17 09:30 OBJECTIVE: Vital Signs Date Time Temp Pulse Resp B/P (MAP) Pulse Ox O2 Delivery O2 Flow Rate FiO2 05/11/17 14:00 92 05/11/17 12:28 95 T-piece 40 05/11/17 12:26 35 05/11/17 12:00 83 05/11/17 12:00 35 05/11/17 12:00 97.5 83 14 172/80 (110) 99 05/11/17 11:00 80 18 178/80 (112) 98 05/11/17 10:00 91 22 187/86 (119) 99 05/11/17 10:00 91 05/11/17 09:00 87 16 187/89 (121) 99 05/11/17 08:15 35 05/11/17 08:00 83 05/11/17 08:00 97.7 83 17 180/87 (118) 98 05/11/17 08:00 35 05/11/17 07:45 99 35 05/11/17 07:45 35 05/11/17 06:00 89 05/11/17 04:12 98 35 05/11/17 04:00 35 05/11/17 04:00 87 05/11/17 04:00 97.5 87 19 177/88 (117) 97 05/11/17 02:00 92 05/11/17 01:49 97 35 05/11/17 00:00 35 05/11/17 00:00 99.2 108 23 160/70 (100) 94 05/11/17 00:00 108 05/10/17 22:27 94 35 05/10/17 22:00 92 05/10/17 20:00 35 05/10/17 20:00 96.3 84 22 129/58 (81) 93 05/10/17 20:00 84 05/10/17 18:00 82 05/10/17 18:00 96.4 82 23 156/71 (99) 93 05/10/17 16:00 87 05/10/17 16:00 35 05/10/17 15:58 99 100 05/10/17 15:58 95 35 Laboratory Tests Test 05/10/17 04:30 05/11/17 01:44 White Blood Count 23.4 TH/MM3 21.7 TH/MM3 Red Blood Count 3.33 MIL/MM3 3.36 MIL/MM3 Hemoglobin 9.0 GM/DL 9.4 GM/DL Hematocrit 28.6 % 28.4 % Mean Corpuscular Volume 85.7 FL 84.6 FL Mean Corpuscular Hemoglobin 26.9 PG 28.0 PG Mean Corpuscular Hemoglobin Concent 31.4 % 33.1 % Red Cell Distribution Width 17.6 % 17.2 % Platelet Count 216 TH/MM3 256 TH/MM3 Mean Platelet Volume 8.2 FL 8.2 FL Neutrophils (%) (Auto) 88.7 % Lymphocytes (%) (Auto) 4.4 % Monocytes (%) (Auto) 6.1 % Eosinophils (%) (Auto) 0.5 % Basophils (%) (Auto) 0.3 % Neutrophils # (Auto) 19.2 TH/MM3 Lymphocytes # (Auto) 1.0 TH/MM3 Monocytes # (Auto) 1.3 TH/MM3 Eosinophils # (Auto) 0.1 TH/MM3 Basophils # (Auto) 0.1 TH/MM3 CBC Comment AUTO DIFF Differential Total Cells Counted 100 Neutrophils % (Manual) 74 % Band Neutrophils % 13 % Lymphocytes % 6 % Monocytes % 2 % Neutrophils # (Manual) 20.0 TH/MM3 Metamyelocytes 5 % Differential Comment FINAL DIFF MANUAL Platelet Estimate NORMAL Platelet Morphology Comment NORMAL Laboratory Tests Test 05/10/17 04:30 05/10/17 17:22 05/11/17 01:44 Blood Urea Nitrogen 127 MG/DL 146 MG/DL Creatinine 3.02 MG/DL 3.18 MG/DL Random Glucose 219 MG/DL 125 MG/DL Calcium Level 8.2 MG/DL 8.0 MG/DL Sodium Level 131 MEQ/L 131 MEQ/L Potassium Level 3.3 MEQ/L 3.2 MEQ/L 3.7 MEQ/L Chloride Level 98 MEQ/L 99 MEQ/L Carbon Dioxide Level 15.6 MEQ/L 15.8 MEQ/L Anion Gap 17 MEQ/L 16 MEQ/L Estimat Glomerular Filtration Rate 21 ML/MIN 20 ML/MIN Imaging Chest X-Ray 05/10/17 0000 Signed Impressions: Service Date/Time: April 08:58 - CONCLUSION: Pulmonary vascular congestion remains. Duy Genao MD Abdomen/Pelvis CT 05/10/17 0000 Signed Impressions: Service Date/Time: April 15:38 - CONCLUSION: 1. Retroperitoneal hematoma is slightly larger within its inferior portion relative to the prior exam. No acute hemorrhage seen to suggest recent rebleed. No findings to suggest interval infection. 2. Bilateral pleural effusions. These are larger than the prior study. 3. Small volume free fluid within the belly. Candido Mendoza Jr., MD Chest X-Ray 05/03/17 0000 Signed Impressions: Service Date/Time: April 10:19 - CONCLUSION: 1. Poor lung aeration 2. Interstitial vascular prominence 3. Significant left lung opacity characteristic of moderate pleural effusion and underlying basilar air space disease. Lenny Ware MD Thoracentesis 04/13/17 1054 Signed Impressions: Service Date/Time: Thursday, April 13, 2017 15:26 - CONCLUSION: Uncomplicated CT-guided right thoracentesis. Candido Mendoza Jr., MD Chest CT 04/12/17 1558 Signed Impressions: Service Date/Time: March 17:51 - CONCLUSION: 1. Slight increase in size of bilateral effusions and basilar atelectasis, left greater than right compared with February 27. Tracheostomy in good position. Trace Holloway MD Renal Ultrasound 04/02/17 0000 Signed Impressions: Service Date/Time: Sunday, April 02, 2017 16:59 - CONCLUSION: Limited exam with the left kidney being unable to be evaluated in the bladder not distended. There do appear to be multiple shadowing stones at the right kidney without hydronephrosis. Angelo Manzo MD Wrist X-Ray 03/27/17 0000 Signed Impressions: Service Date/Time: Monday, March 27, 2017 13:21 - CONCLUSION: 1. No acute fracture is identified. A portion of the previously documented distal ulna fracture remains visualized. 2. 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 Angelo Allen MD Aortography 02/28/17 0000 Signed Impressions: Service Date/Time: Tuesday, February 28, 2017 08:01 - CONCLUSION: 1. Active hemorrhage from distal right lateral sacral and iliolumbar branches successfully coil and Gelfoam embolized, as above. Juan Bhakta MD Abdomen/Pelvis CT 02/28/17 0000 Signed Impressions: Service Date/Time: Tuesday, February 28, 2017 06:51 - CONCLUSION: 1. The right retroperitoneal hematoma has increased in size, as above. There are 2 serpiginous arterially enhancing structures visualized, one in the right psoas muscle and another extending into the hematoma at the right iliac fossa. These could represent sites of continued active bleeding. 2. Stable moderate size left and small right pleural effusion with associated compressive atelectasis. 3. Stable small volume of free fluid in the abdomen and pelvis. There is also anasarca. The findings concerning the retroperitoneal hematoma were discussed with Dr. Aguiar via telephone at approximately 7: 10 AM on 02/28/2017. Angelo Allen MD Abdomen X-Ray 02/26/17 0000 Signed Impressions: Service Date/Time: Sunday, February 26, 2017 14:52 - CONCLUSION: 1. Nonobstructive bowel gas pattern. Juan Bhakta MD Upper Extremity Ultrasound 02/10/17 0000 Signed Impressions: Service Date/Time: Friday, February 10, 2017 18:46 - CONCLUSION: Occlusive thrombus in the cephalic and basilic veins. Benjamin Person MD Lung Scan-V Nuclear Medicine 02/10/17 0000 Signed Impressions: Service Date/Time: Friday, February 10, 2017 22:17 - CONCLUSION: Low probability pulmonary embolism. Candido Patton MD Head CT 02/10/17 0000 Signed Impressions: Service Date/Time: Friday, February 10, 2017 23:51 - CONCLUSION: Negative noncontrast CT brain. Candido Patton MD Lumbar Puncture Fluoroscopy 02/01/17 0000 Signed Impressions: Service Date/Time: January 09:35 - CONCLUSION: Uncomplicated fluoroscopically guided lumbar puncture. CSF was clear. Nabeel Peralta MD Head Magnetic Resonance Angiography 01/27/17 0000 Signed Impressions: Service Date/Time: Friday, January 27, 2017 10:33 - CONCLUSION: No intracranial vascular abnormality is identified. There is no aneurysm visualized. Angelo Allen MD IVC Filter Placement X-Ray 01/25/17 0000 Signed Impressions: Service Date/Time: January 10:29 - CONCLUSION: Uncomplicated inferior vena cava filter placement as above. Yung Fowler MD Thoracic Spine MRI 01/24/17 0000 Signed Impressions: Service Date/Time: Tuesday, January 24, 2017 22:29 - CONCLUSION: 1. Mild degenerative spondylosis most prominently at T11-L1 with slight effacement of the anterior thecal sac and left lateral recess. No significant neural foraminal stenosis. 2. No acute fracture. Juan Bhakta MD Lumbar Spine MRI 01/23/17 0000 Signed Impressions: Service Date/Time: Monday, January 23, 2017 17:01 - CONCLUSION: 1. At L4-5 is a broad-based disc protrusion with severe central canal and lateral recess stenosis and flattening of the exiting right L4 nerve root. 2. L5-S1 there is a disc protrusion and moderate stenosis with flattening of the exiting L5 nerve roots bilaterally. 3. At L3-4 there is a moderate to severe central stenosis and lateral recess stenosis with mild foraminal stenosis. 4. No acute fracture or spondylolisthesis. Trace Holloway MD Lower Extremity Ultrasound 01/23/17 Signed Impressions: Service Date/Time: Monday, January 23, 2017 09:53 - CONCLUSION: Bilateral focal lower extremity DVT involving the posterior tibial veins. Angelo Garrido MD Cervical Spine MRI 01/23/17 Signed Impressions: Service Date/Time: Monday, January 23, 2017 17:01 - CONCLUSION: 1. Multilevel cervical spine degenerative changes as above. 2. Mild degrees of spinal stenosis at C3/C4-C6/C7. No cord compression or cord signal abnormality. 3. Age indeterminate left paracentral/foraminal disc protrusion at C6/C7. 4. Multilevel foraminal stenosis, most severe on the left at C6/C7. Please see individual levels above. 5. No fracture or subluxation of the cervical spine. Angelo Garrido MD Brain MRI 01/23/17 Signed Impressions: Service Date/Time: Monday, January 23, 2017 17:01 - CONCLUSION: 1. No acute stroke or other acute intracranial abnormality demonstrated. 2. Moderate severity chronic white matter changes, nonspecific but most likely related to chronic small vessel disease. 3. Few scattered tiny lacunar infarcts of the brainstem. 4. Given the findings are not entirely specific, clinical evaluation for possible multiple sclerosis recommended. Angelo Garrido MD Knee X-Ray [id number]/22/[id number] Signed Impressions: Service Date/Time: Sunday, January 22, 2017 21:17 - CONCLUSION: 1. Evidence of moderate to large joint effusion. 2. No acute fracture or malalignment. 3. Mild 3 compartment osteoarthritic change. Benjamin Person MD Hip and Pelvis X-Ray [id number] Signed Impressions: Service Date/Time: Sunday, January 22, 2017 21:10 - CONCLUSION: 1. Mild to moderate degenerative change of both hips with no acute fracture or malalignment. There is flattening and remodeling of the right humeral head. Benjamin Person MD Physical Exam GENERAL: No distress. SKIN: Cool and dry. No generalized rash. Edematous in extremities. EYES: [place] conjunctiva. No petechia or hemorrhage. EARS, NOSE AND THROAT: Nose without bleeding or purulent nasal discharge. Dry oral mucosa NECK: Trach site ok. CARDIOVASCULAR: Regular rate and rhythm. Soft heart sounds. No murmurs RESPIRATORY: Coarse BS bilaterally, decreased at bases. ABDOMEN: Soft, not tender, distended, PEG site ok. No guarding rectal tube in place with liquid stool EXTREMITIES: No clubbing, cyanosis. 3+ Edema. Dressing on R leg wound with lots of drainage. Generalized anasarca. NEUROLOGICAL: sedated PSYCHIATRIC: unable to assess LINE: Lines with no evidence of infection IMPRESSION Recurrent respiratory failure, ?plugging, PNA - last CXR better New Sepsis (fever and leucocytosis), temps up again x 1, and WBC still elevated Aspiration Pneumonia in health care setting. Mucus plugs with atelectasis. Leucocytosis, persistent, up and down ESBL in urine in recent past. 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 PNA, ?plugging/atelctasis - MDR, I to Zerbaxa, has been tolerating T-piece - likely effusion adding to his respiratory problems, on top of his plugging /secretions Large R retroperitoneal bleed, S/P multiple transfusions and S/P coiling of bleeders CT show still present but no larger. Anemia, due to bleed, retroperitoneal MSSA sepsis, due to suppurative thrombophlebitis LUE, S/P I and D and excision of portion of cephalic vein - S/P Rx Respiratory failure, has had several intubations - reintubated again 02/28, extubated 03/11 - reintubated again - S/P trach 03/14 Rx 7 days high dose solumedrol for transverse myelitis Wu LE DVT has IVC filter placed 01/25 - ?hypercoagulable state Chronic kidney disease, worsening creatinine - shock and compression of ureter by hematoma Known DM, HTN Diarrhea, C.diff negative Renal insufficiency, worsening Vomiting. Risk for aspiration. RECOMMENDATION Continue Micafungin. Monitor progress Follow temps Weaning per [facility] Douglas Acevedo MD May 11, 2017 15:25
[2017-05-11] MEDS: MICAFUNGIN INJ 150 MG in SODIUM CHLORIDE 0.9% INJ 100 ML IV SCH (15:40)
[2017-05-11] MEDS: ATORVASTATIN 10 MG TAB PO SCH (20:58)
[2017-05-12] VITALS (18 sets, daily range): BP systolic 115–136; BP diastolic 53–65; PULSE 73–110; RESP 14–29; TEMP 95.4–98.2; O2SAT 95–100
[2017-05-12] MEDS: oxyCODONE HCL ORAL CONC 5 MG/0.25 ML SYRINGE PO SCH ×6 (03:12→21:31)
[2017-05-12] MEDS: INSULIN NovoLIN REGULAR SUPPLEMENTAL SCALE SQ SCH ×7 (04:00→23:34)
[2017-05-12] MEDS: ALBUMIN 25% INJ 100 ML IV SCH ×2 (05:42→15:45)
[2017-05-12] MEDS: hydrALAZINE HCL 50 MG TAB PO SCH ×3 (05:42→21:31)
[2017-05-12 07:12] LABS: AUTOMATED NEUTROPHIL # 13.2 TH/MM3 (1.8-7.7); BASOPHIL % 0.2 % (0.0-2.0); EOSINOPHIL # 0.9 TH/MM3 (0-0.4); EOSINOPHIL % 5.4 % (0.0-4.0); HEMATOCRIT 26.8 % (39.0-51.0); LYMPH % 9.3 % (9.0-44.0); LYMPHOCYTE # 1.6 TH/MM3 (1.0-4.8); MEAN CELL VOLUME 85.5 FL (80.0-100.0); MEAN CORPUSCULAR HEMOGLOBIN 27.4 PG (27.0-34.0); MEAN CORPUSCULAR HGB CONC 32.1 % (32.0-36.0); MONO % 9.1 % (0.0-8.0); PLATELET COUNT 235 TH/MM3 (150-450); RED BLOOD COUNT 3.14 MIL/MM3 (4.50-5.90); RED CELL DISTRIBUTION WIDTH 17.3 % (11.6-17.2); WHITE BLOOD COUNT 17.4 TH/MM3 (4.0-11.0)
[2017-05-12 07:14] LABS: HEMO FLAGS AUTO DIFF
[2017-05-12 07:20] LABS: ANION GAP 19 MEQ/L (5-15); BICARBONATE 15.1 MEQ/L (21.0-32.0); CHLORIDE 98 MEQ/L (98-107); POTASSIUM 3.5 MEQ/L (3.5-5.1); SODIUM (NA) 132 MEQ/L (136-145)
[2017-05-12 07:21] LABS: BLOOD UREA NITROGEN 150 MG/DL (7-18)
[2017-05-12 08:08] LABS: BANDS 1 % (0-6); EOSINOPHILS 4 % (0-4); METAMYELOCYTES 4 % (0-1); MYELOCYTES 2 % (0-0); NEUTROPHIL # MANUAL DIFF 13.1 TH/MM3 (1.8-7.7); PLATELET ESTIMATE SMEAR NORMAL (NORMAL); PLATELET MORPHOLOGY NORMAL (NORMAL); POLYS (SEG NEUTROPHILS) 68 % (16-70); SCAN/DIFF FINAL DIFF MANUAL; WBC DIFF SAMPLE 100
[2017-05-12 08:09] LABS: TEARDROP RBCS 1+ (NORMAL)
--- NOTE | 2017-05-12 08:49 | HHI.CCPN ---
Subjective Remarks/Hospital Course Date of admission: 01/22 Date of critical care medicine consult 02/10 due to acute hypoxemic respiratory failure requiring emergent intubation 62-year-old male with a past medical history of hypertension, hyperlipidemia, diabetes mellitus, gout, uric acid kidney stones, kidney disease of unknown stage who originally presented to [facility] emergency department on 01/22 after a fall in which he sustained a right distal ulna fracture. He had been experiencing a gradual primarily lower extremity weakness as well as upper extremity weakness that was progressive. Neurology consult was obtained. MRI revealed no acute stroke. He had multifocal white matter changes. Tiny lacunar infarcts of the brainstem. Lumbar MRI report states L4-L5 disc protrusion with cetnral canal stenosis. Dr. Blackwell evaluated and states no cord compression on MRI C/T spine and recommended nonoperative management. Symptoms were felt to be consistent with transverse myelitis and he underwent Solumedrol 250 mg IV q6 hours 01/27-02/02. He also was found to have occlusive thrombus in the bilateral posterior tibial veins. Heparin was being avoided because he had traumatic lumbar puncture on 01/26 and 02/01. IVC filter was placed 01/25. He was undergoing physical therapy, reportedly making some improvements with plan to eventually discharged home with his son (max assist standing, and bed to chair per PT note). Apparently he had some vomiting the evening of 02/09 and additional vomiting on 02/10. He had a fever 102.8 on 02/09. Last recorded bowel movement was 02/03. Tonight he had acute onset of severe hypoxemia and respiratory distress. [facility] called and he was brought emergently to [facility] where his sats were 64% on 100% nonrebreather with mean arterial pressure 44. He was emergently intubated, CVL and art line placed. He is in septic shock. SUBJ: 02/11: Patient remains intubated sedated, critically ill. FiO2 reduced to 80% after increasing PEEP to 12. In severe septic shock Levophed at 16 mcg/m, vasopressin at 0.04 international units. D/W vascular surgery Dr. Enciso. He performed bedside Left upper extremity incision and debridement and excision of septic cephalic vein. 02/12: Remains intubated sedated profoundly septic, in shock on vasopressin and 7 mcg/min Levophed. FiO2 has improved to 45%, WBC count remains elevated with 20 ,000 white count significant left shift. Slight improvement in creatinine 2.9 urine output 750 ml 24 hours. 2-D echo shows LV ejection fraction 20-25%, no vegetation reported. Blood cultures 4 staph aureus. Wound culture pending 02/13: Remains critically ill but stable to improving. WBC count is down to 16, creatinine improving to 2.36. Off all pressors. Urine output also improving. 1.5L in 24 hours 02/14: Extubated 02/13. Tolerating well. WBC now down to 12.8. Creat improving 2.3 to 2. UO 3.4L. remains off all pressors. Was started on Precedex yesterday night for agitation, currently on 0.5 g per KG per hour. Chest x-ray shows left more than right air space disease 02/20/17 Re consult: 62-year-old male who was originally admitted for lower extremity weakness and found to have what was thought to be possible transverse myelitis. His hospital course his included a healthcare associated pneumonia, septic thrombophlebitis, DVT. He was most recently in the hospital floor where he had significant nausea and vomiting and diarrhea. His C. difficile test was recently negative. However, he has experienced worsening acute on chronic renal failure, hypotension, tachycardia, and severe hypoxemia. He did have a bout of vomiting earlier today, and his hospitalist attending suspects that he may have aspirated. He arrives by rapid response to the ICU with a nonrebreather in place in severe respiratory distress with SPO2 of 85%. I emergently intubate the patient, see separate procedure note for details. At this point the patient was hypotensive and tachycardic. He does have a history of an EF of 20%, however clinically he appears in florid septic shock. I placed central line and arterial line started vasopressors and gentle IV fluid resuscitation with 1 L of LR. Patient today was empirically broadened to vancomycin and Zosyn from his oxacillin which was initially treating MSSA bacteremia. He is recultured. Critical-care medicine is consulted to evaluate and manage his worsening multiorgan system failure and decompensated septic shock 02/21: Patient remains intubated sedated. Becomes anxious tachypnea on sedation lightening. Chest x-ray shows mild left lower lobe infiltrate. WBC count is slightly improved today from 23.2 t0 21. C Diff negative. UO adequate, creat slightly worsening. 1.57 today 02/22: Remains intubated sedated tolerated CPAP yesterday, plan is for EGD/ Colonscopy. WBC count back to normal. UO adequate. Creat stable 02/23: Tolerating CPAP trials following commands. Will do a spontaneous breathing trials. Status post EGD colonoscopy yesterday -Gastritis, esophagitis. Diverticulosis and multiple polyps. Urine output adequate but creatinine increasing to 1.7 with patient requiring multiple straight catheterization. We'll reinsert Sloan. 02/24: Breathing comfortably 24 hours after extubation. Protects airway well. 02/25: Excoriate bottom, will place rectal FMS. Start pureed diet. 02/26: Afebrile. Complaining of nausea and vomiting this afternoon. Increased stool output. Continue potassium replacement today. 02/27: 10 PM overnight, acutely hypotensive. Received 3 units PRBCs. Antibiotic coverage broadened to piperacillin/tazobactam, cortisol and 1 dose of vancomycin. Oxacillin drip currently on hold. Symptomatically, patient continues to vague abdominal pain/nausea vomiting which is unchanged for the past several days. Lipase elevated yesterday. Lactic acid normal. Troponin normal. Urinary retention after removal of Sloan. Straight catheter 1300. Cc 02/28: New diagnosis large retroperitoneal hematoma. Received 10 PRBC, 14 FFP, 2 platelets, 1 cryo-, 6 g calcium chloride, 2 is magnesium sulfate and 4 mg Bumex. CTA abdomen revealed possible arterial bleeds iliac, lumbar. Patient is currently on norepinephrine and epinephrine drips and possible need right nephrostomy tube placement due to large hematoma compressing ureter. Intra-abdominal bladder pressures are currently 13 03/01: Afebrile. Received 25 g albumin and 1 unit PRBCs overnight. Intra- abdominal bladder pressures currently 19. Currently on 3 micrograms per minute of norepinephrine. Gelss-au-dggr 1 out of 4 on 4 mics grams per kilogram per minute of cisatracurium. 03/02: Slightly hypothermic overnight. Hemoglobin appears to have stabilized. Troponin bump overnight likely secondary to demand ischemia from hypotension. Hemodynamically stable off all vasopressors. 03/03: Received 1 PRBCs overnight. 3 units currently. Off all vasopressors. Likely rebleeding. Stool is dark. 03/04: Remains unstable. Ventilator dependent. 03/05: afebrile. hgb stable. 03/06: bumex drip started overnight. good uop after bumex initiated. still grossly volume overloaded. Cr downtrending. more awake with transition to propofol. still too volume overloaded to tolerate extubation. hgb stable. 03/07: Afebrile. Tolerating tube feeds at goal with Nepro. Positive BM. On low-dose fentanyl and propofol drips. Potassium currently being replaced. 03/08: Eyes will open on ventilator. Afebrile. Tolerating tube feeding. Failed PSV trial yesterday due to apnea. 03/09: Following commands. Tmax 101. Tolerating tube feeding. One hour PSV trial yesterday. Currently tolerating well so far today 1.5 hours 03/10: Low-grade temperatures. Tolerating PSV trial 10 hours yesterday. Currently at 5/5 at 35%. We'll probably attempt extubation a.m. after hemodialysis. 03/11: Extubated currently in 4 L nasal cannula. Thick secretions thick clear with cough. Currently afebrile. Tolerating diet previously. 03/12: Sleepy this morning but arouses. Following commands. Refusing diet at the present time. On 2 L nasal cannula. 03/13: Patient reintubated last night for worsening respiratory status. Currently sedated on mechanical ventilation. Became hypotensive following intubation and is on Levophed 20 mics per minute. 03/14: Sedated, orally intubated on mech vent at the time of my evaluation this AM, subsequently underwent perc trach placement. Remains on levophed for pressor support. Transfused 1 unit PRBCs today. Persisten 03/15: Trach site clean, dry. CXR with bilateral basilar infiltrates. 03/16: Pulmonary congestion persists. Clinical condition not improving. Prognosis becoming increasingly bleak. 03/17: Glucose intolerance worse. No improvement in neurological function. 03/18: Remains on mechanical ventilation via tracheostomy. Off pressors now. Neurologic status remains poor. 03/19: Drowsy, encephalopathic, arousable. On mechanical ventilation via tracheostomy. Levemir increased for hyperglycemia today. Remains off pressors 03/20: More awake, moves both upper extremities. On mechanical ventilation via tracheostomy. Daily C Pap trials ongoing. 03/21: Awake and alert. On mechanical ventilation via tracheostomy. Opens and closes eyes on command. 03/22: Awake and alert. Tolerated T PIECE for 7 hours yesterday. Dialyzed today. 03/23: Currently on T piece trial. Status post dialysis yesterday on 3 L. Awake and alert. Wants to eat. 03/24: Currently afebrile. Hemodialysis catheter discontinued yesterday from left IJ. Persistent leukocytosis noted. Potassium will be replaced. Furosemide 40 mg twice a day IV to 20 mg IV twice a day 03/25: WBC count unchanged. Patient on T piece with humidified air greater than 48 hours, tolerating it well. Reconsulted 04/12: The patient was transferred emergently from the floor/ [facility]. Patient was initially seen by advisory software engineer Dr. Estrada, and the patient was noted to be tachypneic on T piece of 40%. ABGs were performed which showed a PaO2 of 60 on T piece of FiO2 of 40%. Chest x-ray was performed which showed loss of entire left hemidiaphragm litigation assistant consolidation in the left lower lobe. Concern for mucus plugging versus fluid. The patient was transferred emergently to [facility] placed on a ventilator CT of the chest is pending. Upon arrival in the room the patient is alert and oriented, mouthing words, nodding head to yes and no questions O2 sat is 100% but patient is currently on mechanical ventilation. Currently in no respiratory distress. 04/13: Tmax 99.8. The patient's oxygen requirements have decreased currently FiO2 35% with a PaO2 1 blood gas of 85, O2 saturation 100%. No respiratory distress noted. Patient underwent CT of the chest yesterday noted pleural effusions left greater than right, diagnostic/and therapeutic CT thoracentesis plan for this a.m.. 04/14: Patient underwent CT-guided thoracentesis of the right side with approximately 600 cc withdrawn. Today advisory software engineer Dr. LABOY in and up size indwelling 6.0 Shiley to a 8.0 Shiley. Minimal bleeding noted around the site. X-ray improving. Patient started on CPAP trials today, as well as tube feeds were initiated. 04/15: Placed on T piece this morning via tracheostomy. Appears to be tolerating it. Laying in bed not in any acute distress. 04/16: Awake and alert. Tolerating T piece. Tolerating PEG feeds. 04/17: Awake and alert. Tolerating T piece. Tolerating tube feeds via PEG 04/18: Awake and alert. Tolerating TPs. Tolerating tube feeds. Passed swallow eval 04/19: Awake and alert. Remains on T piece. Wants to move out of ICU as he indicates to me once again as he has for the past few days. Awaiting CIC bed 04/20: Awake and alert. Remains on T piece. Developed hypotension last night for which she was transiently on Levophed however has been off since early this morning. ID adjusting antibiotics and working up for new sepsis. 04/21: Awake and alert. On T piece. Awaiting CIC bed for the last few days. 04/22: Awake and alert. Remains on T piece. Received 500 cc normal saline this morning for tachycardia. 04/23 No events overnight. Remains on TP's with 35% FIO2. Afebrile. 04/24: Resting comfortably. Got short of breath with Passy-Rafy valve which was taken off. 04/25: Remains on T piece. Awaiting transfer out of ICU. 04/26: Remains on T piece. Still awaiting transfer out of ICU since 04/17. 04/27 Patient became hypotensive, bradycardic and hypoxic, ABG on TP's last night showed acute hypercapnic resp acidosis (PH 7.10, CO2: 80) he was subsequently placed on mechanical ventilator. Patient was given Albumin, 2u PRBC and started on Levophed 3mics. Renal function worse today with Cr: 1.53 from 1.13 04/28 No events overnight off Levophed since yesterday. On no sedation. Afebrile. 04/29 Patient is on ventilator via trach. T;100.4 04/30 Patient remains on ventilator via trach. Afebrile. 05/01 No events overnight. Afebrile. 05/02 No events overnight. On ventilator via trach. T: 100.1 last night. 05/03 Patient remains on ventilator via trach. 05/04 No events overnight. Afebrile. Tolerating tube feeds. 05/05: more hypoxic this morning with increased secretions. fio2 rising. ID on board. leukocytosis persists. 05/06: continues to clinically decline. hypotensive and anemic. no evidence of GI bleeding, but acute drop in hgb. no uop overnight. restarted norepinephrine this morning. 2 units prbc ordered. recultured. had discussion with his son: with recurrent bleeding and worsening septic shock, unlikely to survive this hospital stay. son continues to press for aggressive measures. 05/07: continues to worsen overall. mental status still declining. off vasopresors this morning, but kidney injury worsening. wbc uptrending. ID still involved. hgb stabilized. likely too unstable for travel to CT scan. Palliative re-engaged to have further discussions with Son. I spoke with him yesterday, and Dr. Hogan spoke with him again overnight. likely poor prognosis at this point. 05/08: no improvements or changes. off vasopressors. renal function continues to worsen. 05/09: BREEZY worsening. no need for acute TUBE LANCER at this time. no changes. remains off pressors. wbc slightly downtrended. overall poor prognosis. palliative still involved. 05/10 Patient remains on ventilator via trach. Afebrile. Renal function is gradually worsening. TF held overnight for emesis. 05/11 No events overnight. Afebrile. Repeat CT abd/pelvis yesterday showed retroperitoneal hematoma is slightly larger within its inferior portion relative to the prior exam. No acute hemorrhage seen to suggest recent rebleed 05/12 No events overnight. Patient was on TPs's yesterday and CPAP overnight. Afebrile. WBC is trending down. Objective Vital Signs Date Time Temp Pulse Resp B/P (MAP) Pulse Ox O2 Delivery O2 Flow Rate FiO2 05/12/17 08:13 95 35 05/12/17 06:42 16 05/12/17 06:00 110 05/12/17 04:00 98.2 136/59 (84) 05/11/17 12:28 T-piece Intake and Output 05/12/17 05/12/17 05/13/17 08:00 16:00 00:00 Intake Total 250 ml Output Total 175 ml Balance 75 ml Result Diagram: 05/12/17 0611 05/12/17 0611 Other Results Laboratory Tests Test 05/12/17 06:11 White Blood Count 17.4 TH/MM3 Red Blood Count 3.14 MIL/MM3 Hemoglobin 8.6 GM/DL Hematocrit 26.8 % Mean Corpuscular Volume 85.5 FL Mean Corpuscular Hemoglobin 27.4 PG Mean Corpuscular Hemoglobin Concent 32.1 % Red Cell Distribution Width 17.3 % Platelet Count 235 TH/MM3 Mean Platelet Volume 7.6 FL Neutrophils (%) (Auto) 76.0 % Lymphocytes (%) (Auto) 9.3 % Monocytes (%) (Auto) 9.1 % Eosinophils (%) (Auto) 5.4 % Basophils (%) (Auto) 0.2 % Neutrophils # (Auto) 13.2 TH/MM3 Lymphocytes # (Auto) 1.6 TH/MM3 Monocytes # (Auto) 1.6 TH/MM3 Eosinophils # (Auto) 0.9 TH/MM3 Basophils # (Auto) 0.0 TH/MM3 CBC Comment AUTO DIFF Differential Total Cells Counted 100 Neutrophils % (Manual) 68 % Band Neutrophils % 1 % Lymphocytes % 17 % Monocytes % 4 % Eosinophils % 4 % Neutrophils # (Manual) 13.1 TH/MM3 Metamyelocytes 4 % Myelocytes 2 % Differential Comment FINAL DIFF MANUAL Platelet Estimate NORMAL Platelet Morphology Comment NORMAL Basophilic Stippling FAINT Tear Drop Cells 1+ Blood Urea Nitrogen 150 MG/DL Creatinine 3.41 MG/DL Random Glucose 84 MG/DL Calcium Level 7.5 MG/DL Sodium Level 132 MEQ/L Potassium Level 3.5 MEQ/L Chloride Level 98 MEQ/L Carbon Dioxide Level 15.1 MEQ/L Anion Gap 19 MEQ/L Imaging Last Impressions Chest X-Ray 05/10/17 0000 Signed Impressions: Service Date/Time: April 08:58 - CONCLUSION: Pulmonary vascular congestion remains. Duy Genao MD Abdomen/Pelvis CT 05/10/17 0000 Signed Impressions: Service Date/Time: April 15:38 - CONCLUSION: 1. Retroperitoneal hematoma is slightly larger within its inferior portion relative to the prior exam. No acute hemorrhage seen to suggest recent rebleed. No findings to suggest interval infection. 2. Bilateral pleural effusions. These are larger than the prior study. 3. Small volume free fluid within the belly. Candido Mendoza Jr., MD Thoracentesis 04/13/17 1054 Signed Impressions: Service Date/Time: Thursday, April 13, 2017 15:26 - CONCLUSION: Uncomplicated CT-guided right thoracentesis. Candido Mendoza Jr., MD Chest CT 04/12/17 1558 Signed Impressions: Service Date/Time: March 17:51 - CONCLUSION: 1. Slight increase in size of bilateral effusions and basilar atelectasis, left greater than right compared with February 27. Tracheostomy in good position. Trace Holloway MD Renal Ultrasound 04/02/17 0000 Signed Impressions: Service Date/Time: Sunday, April 02, 2017 16:59 - CONCLUSION: Limited exam with the left kidney being unable to be evaluated in the bladder not distended. There do appear to be multiple shadowing stones at the right kidney without hydronephrosis. Angelo Manzo MD Wrist X-Ray 03/27/17 0000 Signed Impressions: Service Date/Time: Monday, March 27, 2017 13:21 - CONCLUSION: 1. No acute fracture is identified. A portion of the previously documented distal ulna fracture remains visualized. 2. 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 Angelo Allen MD Aortography 02/28/17 0000 Signed Impressions: Service Date/Time: Tuesday, February 28, 2017 08:01 - CONCLUSION: 1. Active hemorrhage from distal right lateral sacral and iliolumbar branches successfully coil and Gelfoam embolized, as above. Juan Bhakta MD Abdomen X-Ray 02/26/17 0000 Signed Impressions: Service Date/Time: Sunday, February 26, 2017 14:52 - CONCLUSION: 1. Nonobstructive bowel gas pattern. Juan Bhakta MD Upper Extremity Ultrasound 02/10/17 0000 Signed Impressions: Service Date/Time: Friday, February 10, 2017 18:46 - CONCLUSION: Occlusive thrombus in the cephalic and basilic veins. Benjamin Person MD Lung Scan- Nuclear Medicine 02/10/17 0000 Signed Impressions: Service Date/Time: Friday, February 10, 2017 22:17 - CONCLUSION: Low probability pulmonary embolism. Candido Patton MD Head CT 02/10/17 0000 Signed Impressions: Service Date/Time: Friday, February 10, 2017 23:51 - CONCLUSION: Negative noncontrast CT brain. Candido Patton MD Lumbar Puncture Fluoroscopy 02/01/17 0000 Signed Impressions: Service Date/Time: January 09:35 - CONCLUSION: Uncomplicated fluoroscopically guided lumbar puncture. CSF was clear. Nabeel Peralta MD Head Magnetic Resonance Angiography 01/27/17 Signed Impressions: Service Date/Time: Friday, January 27, 2017 10:33 - CONCLUSION: No intracranial vascular abnormality is identified. There is no aneurysm visualized. Angelo Allen MD IVC Filter Placement X-Ray 01/25/17 Signed Impressions: Service Date/Time: January 10:29 - CONCLUSION: Uncomplicated inferior vena cava filter placement as above. Yung Fowler MD Thoracic Spine MRI 01/24/17 Signed Impressions: Service Date/Time: Tuesday, January 24, 2017 22:29 - CONCLUSION: 1. Mild degenerative spondylosis most prominently at T11-L1 with slight effacement of the anterior thecal sac and left lateral recess. No significant neural foraminal stenosis. 2. No acute fracture. Juan Bhakta MD Lumbar Spine MRI 01/23/17 Signed Impressions: Service Date/Time: Monday, January 23, 2017 17:01 - CONCLUSION: 1. At L4-5 is a broad-based disc protrusion with severe central canal and lateral recess stenosis and flattening of the exiting right L4 nerve root. 2. L5-S1 there is a disc protrusion and moderate stenosis with flattening of the exiting L5 nerve roots bilaterally. 3. At L3-4 there is a moderate to severe central stenosis and lateral recess stenosis with mild foraminal stenosis. 4. No acute fracture or spondylolisthesis. Trace Holloway MD Lower Extremity Ultrasound 01/23/17 Signed Impressions: Service Date/Time: Monday, January 23, 2017 09:53 - CONCLUSION: Bilateral focal lower extremity DVT involving the posterior tibial veins. Angelo Garrido MD Cervical Spine MRI 01/23/17 Signed Impressions: Service Date/Time: Monday, January 23, 2017 17:01 - CONCLUSION: 1. Multilevel cervical spine degenerative changes as above. 2. Mild degrees of spinal stenosis at C3/C4-C6/C7. No cord compression or cord signal abnormality. 3. Age indeterminate left paracentral/foraminal disc protrusion at C6/C7. 4. Multilevel foraminal stenosis, most severe on the left at C6/C7. Please see individual levels above. 5. No fracture or subluxation of the cervical spine. Angelo Garrido MD Brain MRI 01/23/17 0000 Signed Impressions: Service Date/Time: Monday, January 23, 2017 17:01 - CONCLUSION: 1. No acute stroke or other acute intracranial abnormality demonstrated. 2. Moderate severity chronic white matter changes, nonspecific but most likely related to chronic small vessel disease. 3. Few scattered tiny lacunar infarcts of the brainstem. 4. Given the findings are not entirely specific, clinical evaluation for possible multiple sclerosis recommended. Angelo Garrido MD Knee X-Ray [id number]/22/[id number] Signed Impressions: Service Date/Time: Sunday, January 22, 2017 21:17 - CONCLUSION: 1. Evidence of moderate to large joint effusion. 2. No acute fracture or malalignment. 3. Mild 3 compartment osteoarthritic change. Benjamin Person MD Hip and Pelvis X-Ray [id number] Signed Impressions: Service Date/Time: Sunday, January 22, 2017 21:10 - CONCLUSION: 1. Mild to moderate degenerative change of both hips with no acute fracture or malalignment. There is flattening and remodeling of the right humeral head. Benjamin Person MD Objective Remarks GENERAL: 62-year-old male, resting in bed, on mechanical ventilation via trach HEENT: Normocephalic. Atraumatic. Pupils equal, round, reactive. NECK: Tracheostomy in place CHEST: b/l equal air entry CARDIOVASCULAR: normal rate, regular rhythm. ABDOMEN distended. No rigidity. Umbilical hernia is reducible. No guarding. PEG tube in place : Positive scrotal edema Sloan in situ MUSCULOSKELETAL: Pulses 2+. 1+ bilateral upper and lower extremity edema. NEUROLOGICAL: RASS -3. obtunded. weakly withdraws to pain x 4. Procedures 01/25/2017- Retrievable IVC Filter placement 01/26/17-lumbar puncture with fluoroscopy-by interventional radiology 02/01/17- lumbar puncture fluoroscopy by interventional radiology 02/10/17- Endotracheal Intubation 02/10/17-left IJ central venous line placed 02/10/17-left femoral arterial line placed 02/11/17-Diagnostic and therapeutic bronchoscopy with bronchoalveolar lavage 02/11/17-Left upper extremity incision and debridement with excision of septic cephalic vein 02/13/17- Extubated 02/20/17- endotracheal intubation 02/20/17- Left subclavian central line placement 02/20/17-Right radial A-line placement 02/22/17-EGD/colonoscopy 02/28/17-right radial a line 02/28/17- Endotracheal intubation 02/28/17- right sided introducer catheter placement 02/28/17- Right IJ central line placement 02/28/17-Right chest tube placement 02/28/17- Embolization of inferior and superior sacral branches of right internal iliac artery 03/01/17- Hemodialysis access catheter 03/03/17-Right IJ central line placement 03/11/17-Extubated 03/13/17- Endotracheal intubation 03/14/17-Tracheostomy placement, trach downsized to 6.0 Shiley 03/30/17 03/15/17-PEG tube placement 04/11/17-CT Chest 04/13/17-thoracentesis right 600 cc removed A/P Problem List: (1) Septic shock ICD Code: A41.9 - Sepsis, unspecified organism; R65.21 - Severe sepsis with septic shock Status: Acute (2) Acute respiratory failure ICD Code: J96.00 - Acute respiratory failure, unspecified whether with hypoxia or hypercapnia Status: Chronic (3) Thrombophlebitis arm ICD Code: I80.8 - Phlebitis and thrombophlebitis of other sites (4) Aspiration pneumonia ICD Code: J69.0 - Pneumonitis due to inhalation of food and vomit Status: Acute (5) Atelectasis of left lung ICD Code: J98.11 - Atelectasis Status: Acute (6) Quadriparesis ICD Code: G82.50 - Quadriplegia, unspecified Status: Acute (7) DVT (deep venous thrombosis) ICD Code: I82.409 - Acute embolism and thrombosis of unspecified deep veins of unspecified lower extremity (8) Altered mental status ICD Code: R41.82 - Altered mental status, unspecified Status: Acute (9) CKD (chronic kidney disease) stage 3, GFR 30-59 ml/min ICD Code: N18.3 - Chronic kidney disease, stage 3 (moderate) Status: Chronic (10) Acute renal failure ICD Code: N17.9 - Acute kidney failure, unspecified Status: Acute (11) Diabetes mellitus ICD Code: E11.9 - Type 2 diabetes mellitus without complications Status: Chronic (12) Distal end of ulna fracture, closed ICD Code: S52.609A - Unspecified fracture of lower end of unspecified ulna, initial encounter for closed fracture Status: Acute (13) Gout ICD Code: M10.9 - Gout, unspecified Status: Chronic Assessment and Plan Assessment: 62yM with chronic multi-organ dysfunction now with recurrent septic shock. hgb stable, active bleeding has appeared to stop at this point. goals remain aggressive, although DNR code status. no improvements. renal function worsens: poor candidate for recurrent acute renal replacement therapy. overall poor prognosis. NEURO/PSYCH: Acute metabolic encephalopathy- persistent, worsening this morning. Quadriparesis secondary to suspected transverse myelitis Recurrent falls On no sedation. Monitor neuro status. Suspected transverse myelitis. Received methylprednisolone 250 mg IV every 6 hours 01/27-02/02, started back on hydrocortisone 02/21/17, initially tapering to 50 mg IV every 8 hours starting received 1 dose at 2100 prior to becoming hypotensive. weaning hydrocortisone taper and stopped 03/09. Resumed hydrocortisone 50mg IV Q6hrly on 03/14 as patient became hypotensive following intubation on 03/13 requiring levophed. LP 01/26 and 02/01. CSF culture negative 01/26, 02/01 Oligoclonal bands negative. CSF/serum IgG index is not elevated. VDRL nonreactive. Cryptococcal antigen negative. Brain MRI 01/23 no acute stroke. Few scattered lacunar infarcts of the brainstem. Moderate chronic white matter changes. MRI cervical/thoracic spine- mild spinal stenosis C3/C4 to C6/C7. No cord compression. RPR negative Neurology has been following, Dr. Crenshaw. Repeat CT brain 02/10 - negative Continue PT/OT oxycodone 5mg po q4h scheduled hydrocortisone taper. RESP: Acute hypoxemic respiratory failure - persistent. Healthcare associated pneumonia/Aspiration Pneumonia - recurrent. S/P Right-sided chest tube 02/28 Continue with vent support keep sat >92% Bronchodilators, pulm toilet, trach care TP s's as vanna during day and CPAP at night. s/p perc tracheostomy 03/14. Pulmonology following Dr. Estrada 04/13 CT guided thoracentesis scheduled emergently as discussed with Dr. Estrada - 600cc removed (right) 04/14-tracheostomy up sized to 8.0 Shiley by advisory software engineer Dr. Estrada at bedside CV: Systolic heart failure likely chronic with ejection fraction 20-25% Hyperlipidemia History of hypertension Mild TR Sinus tachycardia Elevated troponin likely type II demand ischemia Septic Shock Hemorrhagic shock On Hydralazine 50mg Q8, add Coreg 3.125mg BID-Monitor HR and BP keep MAP>65mmHg Atorvastatin 10 mg by mouth daily for dyslipidemia. 2-D echocardiogram 01/11 revealed EF 20-25%. Mild TR. Pulmonary arterial pressures were normal around 20 On Hydrocortisone 25mg Q12 GI: Large right retroperitoneal hematoma - resolved. Erosive esophagitis Adenomatous/hyperplastic colon polyps Severe acute protein calorie malnutrition Nausea/vomiting - resolved. Diarrhea Gastritis Diverticulosis Internal and external hemorrhoids Hiatal hernia Elevated lipase On Tube feeds Nepro advance to goal rate 40ml/hr 02/27 CT chest/abdomen and pelvis - 9.4 x 7.5 renal and 16 x 12 cm right psoas muscle hematoma. Fluid around liver and spleen. Right-sided nephrolithiasis CTA abdomen 02/28 - possible blushing around iliac/lumbar vessels Discussed with IR. s/p attempted embolization CT abdomen and pelvis 02/10 atrophic left kidney. Bilateral inguinal hernias fat- containing. Nonobstructing 12 mm right kidney stone repeat CT abd/pelvis did not show evidence of obstruction. patient clinically has been having diarrhea (c. diff negative 02/19). also with nausea/vomiting of unclear etiology. EGD/Colonoscopy-02/22/17 showed gastritis esophagitis, hiatal hernia, diverticulosis and multiple polyps in descending colon and sigmoid which were snared biopsied. Biopsy pending Status post PEG tube placement Lansoprazole 30 mg twice a day for GI prophylaxis FEN/RENAL: Acute kidney injury in the setting of Chronic kidney disease stage 3-4 History of uric acid kidney stones with prior stent BPH Nonfunctioning left kidney Monitor renal function, electrolytes replacement as needed Cr: 3.41 from 3.18 , on Lasix 20mg IV Q12 Renal is following- Dr. Liao. IV Albumin RIOS/SPEP negative. 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 Recommended nephrostomy tube if obstruction Nephrology consulted, off hemodialysis. Making urine. ICU electrolyte replacement protocol Last IHD was 03/22 hold free water. ID: Septic shock- recurrent Abscess and Suppurative thrombophlebitis left upper extremity MSSA bacteremia Klebsiella UTI ESBL positive Acute aspiration pneumonia/HCAP 04/27 Sputum cx: Pseudomonas, Urine cx: C. Iwona , BC: 05/24 bottles: Coag negative staph likely contaminant 04/29 BC: NGTD 05/01 Wound cx: Pseudomonas, Group D enterococcus, GNR Continue with abx per ID ( on Micafungin)monitor for signs of infections ( fever , WBC) WBC is trending down Previously treated with Bactrim, ertapenem, intermittent vancomycin, nafcillin Blood cultures 2, UA ESBL positive Klebsiella UTI Sputum 03/14 - Pseudomonas came back resistant to imipenem, Stenotrophomonas maltophilia C-diff PCR negative wound service is following. stage IV sacral ulcer, ulcer right ankle/LE CT abd/pelvis 05/10: Retroperitoneal hematoma is slightly larger within its inferior portion relative to the prior exam. No acute hemorrhage seen to suggest recent rebleed HEME: Acute blood loss anemia- worsening. DVT, bilateral posterior tibial vein, IVC filter Septic thrombophlebitis with occlusive thrombus mid cephalic and basilic vein side Monitor CBC s/p transfusion 2units PRBC ( 04/26) Received 10 PRBC, 14 FFP, 2 platelets, 1 cryo-02/28 Received 3 units PRBCs Ultrasound 01/23/17 - Bilateral lower extremity with occlusive posterior tibial vein DVTs. Heparin was initially started for DVT but was placed on hold due to LP with suspected traumatic tap. Currently holding full anticoagulation with enoxaparin 100 mg IV twice a day due to anemia as of 02/26 IVC filter was placed 01/25/17. Ultrasound LUE 02/10 occlusive thrombus mid cephalic vein, basilic vein.s. Transfuse 3 units PRBCs 02/27 Transfuse 2 units PRBCs 03/01. Transfused 1 unit PRBCs on 03/14 transfused 2 units prbc 05/06 ENDO: Diabetes mellitus Hypoglycemia History of prior adrenal insufficiency with shock Gout Accu-Cheks to maintain euglycemia Novulin R every 4 hours. Low Regimen MSK: Right distal ulna fracture. Recommended nonoperative management. PROPH: Lansoprazole 30 mg twice a day twice a day for stress ulcer prophylaxis. Has IVC filter. Therapeutic enoxaparin was placed on hold for retroperitoneal hematoma ACCESS: Peripheral IV's Level 3 Problem Qualifiers (1) Aspiration pneumonia: (2) DVT (deep venous thrombosis): Qualified Codes: I82.443 - Acute embolism and thrombosis of tibial vein, bilateral (3) Acute renal failure: Qualified Codes: N17.9 - Acute kidney failure, unspecified (4) Diabetes mellitus: (5) Gout: Hood Madera MD May 12, 2017 08:49
[2017-05-12] MEDS: SODIUM CHLORIDE 0.9% FLUSH 10 ML FLUSH IV FLUSH SCH ×3 (09:00→21:31)
[2017-05-12] MEDS: COLLAGENASE OINT 30 GM TUBE TOPICAL SCH (09:00)
[2017-05-12] MEDS: FUROSEMIDE 20 MG/2 ML VIAL IV PUSH SCH ×2 (09:03→18:23)
[2017-05-12] MEDS: HYDROCORTISONE SOD SUCCINATE 100 MG VIAL IV PUSH SCH (09:03)
[2017-05-12] MEDS: LACTOBACILLUS ACIDOPHILUS TAB PO SCH ×3 (09:03→18:23)
[2017-05-12] MEDS: CHOLESTYRAMINE 4 GM PACKET G-TUBE SCH ×2 (09:03→21:00)
[2017-05-12] MEDS: QUEtiapine FUMARATE 25 MG TAB PO SCH (09:04)
[2017-05-12] MEDS: LANSOPRAZOLE SOLUTAB 30 MG TAB NG SCH ×2 (09:04→21:31)
[2017-05-12] MEDS: TAMSULOSIN HCL 0.4 MG CAP PO SCH ×2 (09:04→21:37)
[2017-05-12] MEDS: CHLORHEXIDINE 0.12% (ORAL KIT) 15 ML CUP MT SCH ×2 (09:05→21:31)
[2017-05-12] MEDS: CARVEDILOL 3.125 MG TAB PO SCH ×2 (09:38→21:32)
--- NOTE | 2017-05-12 11:25 | HHI.NPPN ---
Subjective History of Present Illness 61-year-old with history of urinary stone patient again got unstable has recurrent bouts of ICU admission requiring ventilation and respiratory care started having scrotal swelling and acute renal failure again, he had mild hyperkalemia and this was treated I have been reconsulted again Additional Remarks Patient had trach on vent, not in distress, open eyes spontaneously, on CPAP now, following some commands. Review of Systems General Constitutional: Fatigue Objective Data Data Vital Signs Date Time Temp Pulse Resp B/P (MAP) Pulse Ox O2 Delivery O2 Flow Rate FiO2 05/12/17 10:00 98 05/12/17 08:13 95 35 05/12/17 08:00 35 05/12/17 08:00 97.9 109 29 115/53 (73) 97 05/12/17 08:00 107 05/12/17 06:42 16 05/12/17 06:00 110 05/12/17 04:00 35 05/12/17 04:00 98.2 100 23 136/59 (84) 97 05/12/17 04:00 100 05/12/17 03:49 98 35 05/12/17 02:00 101 05/12/17 00:21 99 35 05/12/17 00:00 35 05/12/17 00:00 89 05/12/17 00:00 98.0 89 14 127/59 (81) 99 05/11/17 22:00 83 05/11/17 20:46 98 35 05/11/17 20:00 35 05/11/17 20:00 97.6 85 16 150/72 (98) 100 05/11/17 20:00 85 05/11/17 18:32 35 05/11/17 18:00 78 05/11/17 17:00 95.0 74 14 162/74 (103) 99 05/11/17 16:26 35 05/11/17 16:26 98 35 05/11/17 16:00 95.0 86 30 164/73 (103) 97 05/11/17 16:00 35 05/11/17 16:00 86 05/11/17 15:00 87 31 165/74 (104) 97 05/11/17 14:00 92 05/11/17 14:00 92 34 168/70 (102) 97 05/11/17 13:00 92 27 172/80 (110) 94 12/22/17 12:28 95 T-piece 40 05/11/17 12:26 35 05/11/17 12:00 83 05/11/17 12:00 35 05/11/17 12:00 97.5 83 14 172/80 (110) 99 -: 05/12/17 0611 05/12/17 0611 Physical Exam General Appearance: No Acute Distress, Pale Eyes Eye Exam: Pupils Equal Throat Throat Exam: Oral Mucosa [place] & Moist Neck Neck Exam: Neck Supple Pulmonary Resp Exam: Clear Bilaterally Cardiology CV Exam: Normal Sinus Rhythm Gastrointestinal/Abdomen GI Exam: Non-Tender, Distended Genitourinary Exam: Flank Non-Tender (scrotal edema) Extremeties Extremities Exam: Moderate Edema, Pitting Edema Neurologic Neuro Exam: Awake Assessment/Plan Problem List: (1) Acute renal failure ICD Codes: N17.9 - Acute kidney failure, unspecified Status: Acute Plan: Patient with pneumonia as, sepsis, acute renal failure Had pneumonia, developed sepsis with ARF. 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 Patient had been on dialysis earlier in hospitalization non oliguric ATN from sepsis He has multiple infections and pneumonia. Patient has improvement in the BP. Creatinine continue to increase. Urine out put is low. Creatinine slowly increasing, K is now normal. Has worsening edema, will possibly need to start on HD. I will discuss with Dr. Hernandez. (2) CKD (chronic kidney disease) stage 3, GFR 30-59 ml/min ICD Codes: N18.3 - Chronic kidney disease, stage 3 (moderate) Status: Chronic Plan: Ultrasound revealed chronic kidney disease there is no kidney stones (3) Diabetes ICD Codes: E11.9 - Type 2 diabetes mellitus without complications Plan: Continue to monitor (4) Distal end of ulna fracture, closed ICD Codes: S52.609A - Unspecified fracture of lower end of unspecified ulna, initial encounter for closed fracture Status: Acute Plan: Orthopedic is following Problem Qualifiers (1) Acute renal failure: Qualified Codes: N17.9 - Acute kidney failure, unspecified Aicha Leonard MD May 12, 2017 11:25
[2017-05-12] MEDS: MICAFUNGIN INJ 150 MG in SODIUM CHLORIDE 0.9% INJ 100 ML IV SCH (14:36)
[2017-05-12] MEDS: RESP: ALBUTEROL 2.5 MG/IPRATROPIUM 0.5 MG NEB (PRN) NEB (19:52)
[2017-05-12] MEDS: ATORVASTATIN 10 MG TAB PO SCH (21:32)
[2017-05-13] VITALS (18 sets, daily range): BP systolic 82–114; BP diastolic 45–59; PULSE 64–90; RESP 13–20; TEMP 96.7–98.6; O2SAT 89–100
[2017-05-13] MEDS: oxyCODONE HCL ORAL CONC 5 MG/0.25 ML SYRINGE PO SCH ×5 (02:22→22:00)
[2017-05-13] MEDS: ALBUMIN 25% INJ 100 ML IV SCH ×2 (03:11→17:04)
[2017-05-13] MEDS: INSULIN NovoLIN REGULAR SUPPLEMENTAL SCALE SQ SCH ×5 (03:11→20:00)
[2017-05-13] MEDS: ALPRAZolam 0.25 MG TAB PO PRN (05:00)
[2017-05-13] MEDS: hydrALAZINE HCL 50 MG TAB PO SCH ×2 (05:00→12:57)
[2017-05-13 05:11] LABS: AUTOMATED NEUTROPHIL # 13.7 TH/MM3 (1.8-7.7); BASOPHIL % 0.2 % (0.0-2.0); EOSINOPHIL # 1.6 TH/MM3 (0-0.4); EOSINOPHIL % 9.5 % (0.0-4.0); HEMATOCRIT 25.8 % (39.0-51.0); LYMPH % 5.1 % (9.0-44.0); LYMPHOCYTE # 0.8 TH/MM3 (1.0-4.8); MEAN CELL VOLUME 83.6 FL (80.0-100.0); MEAN CORPUSCULAR HEMOGLOBIN 27.1 PG (27.0-34.0); MEAN CORPUSCULAR HGB CONC 32.5 % (32.0-36.0); MONO % 3.4 % (0.0-8.0); NEUT % 81.8 % (16.0-70.0); PLATELET COUNT 216 TH/MM3 (150-450); RED BLOOD COUNT 3.08 MIL/MM3 (4.50-5.90); RED CELL DISTRIBUTION WIDTH 17.5 % (11.6-17.2); WHITE BLOOD COUNT 16.8 TH/MM3 (4.0-11.0)
[2017-05-13 05:15] LABS: HEMO FLAGS AUTO DIFF
[2017-05-13 05:32] LABS: ANION GAP 18 MEQ/L (5-15); BICARBONATE 15.4 MEQ/L (21.0-32.0); CHLORIDE 99 MEQ/L (98-107); POTASSIUM 3.6 MEQ/L (3.5-5.1); SODIUM (NA) 132 MEQ/L (136-145)
[2017-05-13 05:33] LABS: BLOOD UREA NITROGEN 165 MG/DL (7-18)
[2017-05-13 06:00] LABS: BANDS 2 % (0-6); EOSINOPHILS 10 % (0-4); MYELOCYTES 1 % (0-0); NEUTROPHIL # MANUAL DIFF 13.9 TH/MM3 (1.8-7.7); OVALOCYTES 1+ (NORMAL); PLATELET ESTIMATE SMEAR NORMAL (NORMAL); PLATELET MORPHOLOGY NORMAL (NORMAL); POLYS (SEG NEUTROPHILS) 80 % (16-70); SCAN/DIFF FINAL DIFF MANUAL; WBC DIFF SAMPLE 100
--- NOTE | 2017-05-13 07:55 | HHI.CCPN ---
Subjective Remarks/Hospital Course Date of admission: 01/22 Date of critical care medicine consult 02/10 due to acute hypoxemic respiratory failure requiring emergent intubation 62-year-old male with a past medical history of hypertension, hyperlipidemia, diabetes mellitus, gout, uric acid kidney stones, kidney disease of unknown stage who originally presented to [facility] emergency department on 01/22 after a fall in which he sustained a right distal ulna fracture. He had been experiencing a gradual primarily lower extremity weakness as well as upper extremity weakness that was progressive. Neurology consult was obtained. MRI revealed no acute stroke. He had multifocal white matter changes. Tiny lacunar infarcts of the brainstem. Lumbar MRI report states L4-L5 disc protrusion with cetnral canal stenosis. Dr. Blackwell evaluated and states no cord compression on MRI C/T spine and recommended nonoperative management. Symptoms were felt to be consistent with transverse myelitis and he underwent Solumedrol 250 mg IV q6 hours 01/27-02/02. He also was found to have occlusive thrombus in the bilateral posterior tibial veins. Heparin was being avoided because he had traumatic lumbar puncture on 01/26 and 02/01. IVC filter was placed 01/25. He was undergoing physical therapy, reportedly making some improvements with plan to eventually discharged home with his son (max assist standing, and bed to chair per PT note). Apparently he had some vomiting the evening of 02/09 and additional vomiting on 02/10. He had a fever 102.8 on 02/09. Last recorded bowel movement was 02/03. Tonight he had acute onset of severe hypoxemia and respiratory distress. [facility] called and he was brought emergently to [facility] where his sats were 64% on 100% nonrebreather with mean arterial pressure 44. He was emergently intubated, CVL and art line placed. He is in septic shock. SUBJ: 02/11: Patient remains intubated sedated, critically ill. FiO2 reduced to 80% after increasing PEEP to 12. In severe septic shock Levophed at 16 mcg/m, vasopressin at 0.04 international units. D/W vascular surgery Dr. Enciso. He performed bedside Left upper extremity incision and debridement and excision of septic cephalic vein. 02/12: Remains intubated sedated profoundly septic, in shock on vasopressin and 7 mcg/min Levophed. FiO2 has improved to 45%, WBC count remains elevated with 20 ,000 white count significant left shift. Slight improvement in creatinine 2.9 urine output 750 ml 24 hours. 2-D echo shows LV ejection fraction 20-25%, no vegetation reported. Blood cultures 4 staph aureus. Wound culture pending 02/13: Remains critically ill but stable to improving. WBC count is down to 16, creatinine improving to 2.36. Off all pressors. Urine output also improving. 1.5L in 24 hours 02/14: Extubated 02/13. Tolerating well. WBC now down to 12.8. Creat improving 2.3 to 2. UO 3.4L. remains off all pressors. Was started on Precedex yesterday night for agitation, currently on 0.5 g per KG per hour. Chest x-ray shows left more than right air space disease 02/20/17 Re consult: 62-year-old male who was originally admitted for lower extremity weakness and found to have what was thought to be possible transverse myelitis. His hospital course his included a healthcare associated pneumonia, septic thrombophlebitis, DVT. He was most recently in the hospital floor where he had significant nausea and vomiting and diarrhea. His C. difficile test was recently negative. However, he has experienced worsening acute on chronic renal failure, hypotension, tachycardia, and severe hypoxemia. He did have a bout of vomiting earlier today, and his hospitalist attending suspects that he may have aspirated. He arrives by rapid response to the ICU with a nonrebreather in place in severe respiratory distress with SPO2 of 85%. I emergently intubate the patient, see separate procedure note for details. At this point the patient was hypotensive and tachycardic. He does have a history of an EF of 20%, however clinically he appears in florid septic shock. I placed central line and arterial line started vasopressors and gentle IV fluid resuscitation with 1 L of LR. Patient today was empirically broadened to vancomycin and Zosyn from his oxacillin which was initially treating MSSA bacteremia. He is recultured. Critical-care medicine is consulted to evaluate and manage his worsening multiorgan system failure and decompensated septic shock 02/21: Patient remains intubated sedated. Becomes anxious tachypnea on sedation lightening. Chest x-ray shows mild left lower lobe infiltrate. WBC count is slightly improved today from 23.2 t0 21. C Diff negative. UO adequate, creat slightly worsening. 1.57 today 02/22: Remains intubated sedated tolerated CPAP yesterday, plan is for EGD/ Colonscopy. WBC count back to normal. UO adequate. Creat stable 02/23: Tolerating CPAP trials following commands. Will do a spontaneous breathing trials. Status post EGD colonoscopy yesterday -Gastritis, esophagitis. Diverticulosis and multiple polyps. Urine output adequate but creatinine increasing to 1.7 with patient requiring multiple straight catheterization. We'll reinsert Sloan. 02/24: Breathing comfortably 24 hours after extubation. Protects airway well. 02/25: Excoriate bottom, will place rectal FMS. Start pureed diet. 02/26: Afebrile. Complaining of nausea and vomiting this afternoon. Increased stool output. Continue potassium replacement today. 02/27: 10 PM overnight, acutely hypotensive. Received 3 units PRBCs. Antibiotic coverage broadened to piperacillin/tazobactam, cortisol and 1 dose of vancomycin. Oxacillin drip currently on hold. Symptomatically, patient continues to vague abdominal pain/nausea vomiting which is unchanged for the past several days. Lipase elevated yesterday. Lactic acid normal. Troponin normal. Urinary retention after removal of Sloan. Straight catheter 1300. Cc 02/28: New diagnosis large retroperitoneal hematoma. Received 10 PRBC, 14 FFP, 2 platelets, 1 cryo-, 6 g calcium chloride, 2 is magnesium sulfate and 4 mg Bumex. CTA abdomen revealed possible arterial bleeds iliac, lumbar. Patient is currently on norepinephrine and epinephrine drips and possible need right nephrostomy tube placement due to large hematoma compressing ureter. Intra-abdominal bladder pressures are currently 13 03/01: Afebrile. Received 25 g albumin and 1 unit PRBCs overnight. Intra- abdominal bladder pressures currently 19. Currently on 3 micrograms per minute of norepinephrine. [id number] 1 out of 4 on 4 mics grams per kilogram per minute of cisatracurium. 03/02: Slightly hypothermic overnight. Hemoglobin appears to have stabilized. Troponin bump overnight likely secondary to demand ischemia from hypotension. Hemodynamically stable off all vasopressors. 03/03: Received 1 PRBCs overnight. 3 units currently. Off all vasopressors. Likely rebleeding. Stool is dark. 03/04: Remains unstable. Ventilator dependent. 03/05: afebrile. hgb stable. 03/06: bumex drip started overnight. good uop after bumex initiated. still grossly volume overloaded. Cr downtrending. more awake with transition to propofol. still too volume overloaded to tolerate extubation. hgb stable. 03/07: Afebrile. Tolerating tube feeds at goal with Nepro. Positive BM. On low-dose fentanyl and propofol drips. Potassium currently being replaced. 03/08: Eyes will open on ventilator. Afebrile. Tolerating tube feeding. Failed PSV trial yesterday due to apnea. 03/09: Following commands. Tmax 101. Tolerating tube feeding. One hour PSV trial yesterday. Currently tolerating well so far today 1.5 hours 03/10: Low-grade temperatures. Tolerating PSV trial 10 hours yesterday. Currently at 5/5 at 35%. We'll probably attempt extubation a.m. after hemodialysis. 03/11: Extubated currently in 4 L nasal cannula. Thick secretions thick clear with cough. Currently afebrile. Tolerating diet previously. 03/12: Sleepy this morning but arouses. Following commands. Refusing diet at the present time. On 2 L nasal cannula. 03/13: Patient reintubated last night for worsening respiratory status. Currently sedated on mechanical ventilation. Became hypotensive following intubation and is on Levophed 20 mics per minute. 03/14: Sedated, orally intubated on mech vent at the time of my evaluation this AM, subsequently underwent perc trach placement. Remains on levophed for pressor support. Transfused 1 unit PRBCs today. Persisten 03/15: Trach site clean, dry. CXR with bilateral basilar infiltrates. 03/16: Pulmonary congestion persists. Clinical condition not improving. Prognosis becoming increasingly bleak. 03/17: Glucose intolerance worse. No improvement in neurological function. 03/18: Remains on mechanical ventilation via tracheostomy. Off pressors now. Neurologic status remains poor. 03/19: Drowsy, encephalopathic, arousable. On mechanical ventilation via tracheostomy. Levemir increased for hyperglycemia today. Remains off pressors 03/20: More awake, moves both upper extremities. On mechanical ventilation via tracheostomy. Daily C Pap trials ongoing. 03/21: Awake and alert. On mechanical ventilation via tracheostomy. Opens and closes eyes on command. 03/22: Awake and alert. Tolerated T PIECE for 7 hours yesterday. Dialyzed today. 03/23: Currently on T piece trial. Status post dialysis yesterday on 3 L. Awake and alert. Wants to eat. 03/24: Currently afebrile. Hemodialysis catheter discontinued yesterday from left IJ. Persistent leukocytosis noted. Potassium will be replaced. Furosemide 40 mg twice a day IV to 20 mg IV twice a day 03/25: WBC count unchanged. Patient on T piece with humidified air greater than 48 hours, tolerating it well. Reconsulted 04/12: The patient was transferred emergently from the floor/ [facility]. Patient was initially seen by invasive manager Dr. Estrada, and the patient was noted to be tachypneic on T piece of 40%. ABGs were performed which showed a PaO2 of 60 on T piece of FiO2 of 40%. Chest x-ray was performed which showed loss of entire left hemidiaphragm compliance assistant consolidation in the left lower lobe. Concern for mucus plugging versus fluid. The patient was transferred emergently to [facility] placed on a ventilator CT of the chest is pending. Upon arrival in the room the patient is alert and oriented, mouthing words, nodding head to yes and no questions O2 sat is 100% but patient is currently on mechanical ventilation. Currently in no respiratory distress. 04/13: Tmax 99.8. The patient's oxygen requirements have decreased currently FiO2 35% with a PaO2 1 blood gas of 85, O2 saturation 100%. No respiratory distress noted. Patient underwent CT of the chest yesterday noted pleural effusions left greater than right, diagnostic/and therapeutic CT thoracentesis plan for this a.m.. 04/14: Patient underwent CT-guided thoracentesis of the right side with approximately 600 cc withdrawn. Today invasive manager Dr. LABOY in and up size indwelling 6.0 Shiley to a 8.0 Shiley. Minimal bleeding noted around the site. X-ray improving. Patient started on CPAP trials today, as well as tube feeds were initiated. 04/15: Placed on T piece this morning via tracheostomy. Appears to be tolerating it. Laying in bed not in any acute distress. 04/16: Awake and alert. Tolerating T piece. Tolerating PEG feeds. 04/17: Awake and alert. Tolerating T piece. Tolerating tube feeds via PEG 04/18: Awake and alert. Tolerating TPs. Tolerating tube feeds. Passed swallow eval 04/19: Awake and alert. Remains on T piece. Wants to move out of ICU as he indicates to me once again as he has for the past few days. Awaiting CIC bed 04/20: Awake and alert. Remains on T piece. Developed hypotension last night for which she was transiently on Levophed however has been off since early this morning. ID adjusting antibiotics and working up for new sepsis. 04/21: Awake and alert. On T piece. Awaiting CIC bed for the last few days. 04/22: Awake and alert. Remains on T piece. Received 500 cc normal saline this morning for tachycardia. 04/23 No events overnight. Remains on TP's with 35% FIO2. Afebrile. 04/24: Resting comfortably. Got short of breath with Passy-Rafy valve which was taken off. 04/25: Remains on T piece. Awaiting transfer out of ICU. 04/26: Remains on T piece. Still awaiting transfer out of ICU since 04/17. 04/27 Patient became hypotensive, bradycardic and hypoxic, ABG on TP's last night showed acute hypercapnic resp acidosis (PH 7.10, CO2: 80) he was subsequently placed on mechanical ventilator. Patient was given Albumin, 2u PRBC and started on Levophed 3mics. Renal function worse today with Cr: 1.53 from 1.13 04/28 No events overnight off Levophed since yesterday. On no sedation. Afebrile. 04/29 Patient is on ventilator via trach. T;100.4 04/30 Patient remains on ventilator via trach. Afebrile. 05/01 No events overnight. Afebrile. 05/02 No events overnight. On ventilator via trach. T: 100.1 last night. 05/03 Patient remains on ventilator via trach. 05/04 No events overnight. Afebrile. Tolerating tube feeds. 05/05: more hypoxic this morning with increased secretions. fio2 rising. ID on board. leukocytosis persists. 05/06: continues to clinically decline. hypotensive and anemic. no evidence of GI bleeding, but acute drop in hgb. no uop overnight. restarted norepinephrine this morning. 2 units prbc ordered. recultured. had discussion with his son: with recurrent bleeding and worsening septic shock, unlikely to survive this hospital stay. son continues to press for aggressive measures. 05/07: continues to worsen overall. mental status still declining. off vasopresors this morning, but kidney injury worsening. wbc uptrending. ID still involved. hgb stabilized. likely too unstable for travel to CT scan. Palliative re-engaged to have further discussions with Son. I spoke with him yesterday, and Dr. Hogan spoke with him again overnight. likely poor prognosis at this point. 05/08: no improvements or changes. off vasopressors. renal function continues to worsen. 05/09: BREEZY worsening. no need for acute [employer] at this time. no changes. remains off pressors. wbc slightly downtrended. overall poor prognosis. palliative still involved. 05/10 Patient remains on ventilator via trach. Afebrile. Renal function is gradually worsening. TF held overnight for emesis. 05/11 No events overnight. Afebrile. Repeat CT abd/pelvis yesterday showed retroperitoneal hematoma is slightly larger within its inferior portion relative to the prior exam. No acute hemorrhage seen to suggest recent rebleed 05/12 No events overnight. Patient was on TPs's yesterday and CPAP overnight. Afebrile. WBC is trending down. 05/13 Patient is on ventilator via trach. Renal function continue to worse with Cr: 3.79 and UOP 125ml overnight. Awaiting son's decision re dialysis. Objective Vital Signs Date Time Temp Pulse Resp B/P (MAP) Pulse Ox O2 Delivery O2 Flow Rate FiO2 05/13/17 06:00 88 05/13/17 04:11 98 35 05/13/17 04:00 98.6 18 95/52 (66) 05/11/17 12:28 T-piece Intake and Output 05/13/17 05/13/17 05/14/17 08:00 16:00 00:00 Intake Total 315 ml Output Total 125 ml Balance 190 ml Result Diagram: 05/13/17 0443 05/13/17 0443 Other Results Laboratory Tests Test 05/13/17 04:43 White Blood Count 16.8 TH/MM3 Red Blood Count 3.08 MIL/MM3 Hemoglobin 8.4 GM/DL Hematocrit 25.8 % Mean Corpuscular Volume 83.6 FL Mean Corpuscular Hemoglobin 27.1 PG Mean Corpuscular Hemoglobin Concent 32.5 % Red Cell Distribution Width 17.5 % Platelet Count 216 TH/MM3 Mean Platelet Volume 7.8 FL Neutrophils (%) (Auto) 81.8 % Lymphocytes (%) (Auto) 5.1 % Monocytes (%) (Auto) 3.4 % Eosinophils (%) (Auto) 9.5 % Basophils (%) (Auto) 0.2 % Neutrophils # (Auto) 13.7 TH/MM3 Lymphocytes # (Auto) 0.8 TH/MM3 Monocytes # (Auto) 0.6 TH/MM3 Eosinophils # (Auto) 1.6 TH/MM3 Basophils # (Auto) 0.0 TH/MM3 CBC Comment AUTO DIFF Differential Total Cells Counted 100 Neutrophils % (Manual) 80 % Band Neutrophils % 2 % Lymphocytes % 5 % Monocytes % 2 % Eosinophils % 10 % Neutrophils # (Manual) 13.9 TH/MM3 Myelocytes 1 % Differential Comment FINAL DIFF MANUAL Platelet Estimate NORMAL Platelet Morphology Comment NORMAL Ovalocytes 1+ Blood Urea Nitrogen 165 MG/DL Creatinine 3.79 MG/DL Random Glucose 89 MG/DL Calcium Level 7.5 MG/DL Sodium Level 132 MEQ/L Potassium Level 3.6 MEQ/L Chloride Level 99 MEQ/L Carbon Dioxide Level 15.4 MEQ/L Anion Gap 18 MEQ/L Imaging Last Impressions Chest X-Ray 05/10/17 0000 Signed Impressions: Service Date/Time: April 08:58 - CONCLUSION: Pulmonary vascular congestion remains. Duy Genao MD Abdomen/Pelvis CT 05/10/17 0000 Signed Impressions: Service Date/Time: April 15:38 - CONCLUSION: 1. Retroperitoneal hematoma is slightly larger within its inferior portion relative to the prior exam. No acute hemorrhage seen to suggest recent rebleed. No findings to suggest interval infection. 2. Bilateral pleural effusions. These are larger than the prior study. 3. Small volume free fluid within the belly. Candido Mendoza Jr., MD Thoracentesis 04/13/17 1054 Signed Impressions: Service Date/Time: Thursday, April 13, 2017 15:26 - CONCLUSION: Uncomplicated CT-guided right thoracentesis. Candido Mendoza Jr., MD Chest CT 04/12/17 1558 Signed Impressions: Service Date/Time: March 17:51 - CONCLUSION: 1. Slight increase in size of bilateral effusions and basilar atelectasis, left greater than right compared with February 27. Tracheostomy in good position. Trace Holloway MD Renal Ultrasound 04/02/17 0000 Signed Impressions: Service Date/Time: Sunday, April 02, 2017 16:59 - CONCLUSION: Limited exam with the left kidney being unable to be evaluated in the bladder not distended. There do appear to be multiple shadowing stones at the right kidney without hydronephrosis. Angelo Manzo MD Wrist X-Ray 03/27/17 0000 Signed Impressions: Service Date/Time: Monday, March 27, 2017 13:21 - CONCLUSION: 1. No acute fracture is identified. A portion of the previously documented distal ulna fracture remains visualized. 2. 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 Angelo Allen MD Aortography 02/28/17 0000 Signed Impressions: Service Date/Time: Tuesday, February 28, 2017 08:01 - CONCLUSION: 1. Active hemorrhage from distal right lateral sacral and iliolumbar branches successfully coil and Gelfoam embolized, as above. Juan Bhakta MD Abdomen X-Ray 02/26/17 0000 Signed Impressions: Service Date/Time: Sunday, February 26, 2017 14:52 - CONCLUSION: 1. Nonobstructive bowel gas pattern. Juan Bhakta MD Upper Extremity Ultrasound 02/10/17 0000 Signed Impressions: Service Date/Time: Friday, February 10, 2017 18:46 - CONCLUSION: Occlusive thrombus in the cephalic and basilic veins. Benjamin Person MD Lung Scan- Nuclear Medicine 02/10/17 0000 Signed Impressions: Service Date/Time: Friday, February 10, 2017 22:17 - CONCLUSION: Low probability pulmonary embolism. Candido Patton MD Head CT 02/10/17 0000 Signed Impressions: Service Date/Time: Friday, February 10, 2017 23:51 - CONCLUSION: Negative noncontrast CT brain. Candido Patton MD Lumbar Puncture Fluoroscopy 02/01/17 0000 Signed Impressions: Service Date/Time: January 09:35 - CONCLUSION: Uncomplicated fluoroscopically guided lumbar puncture. CSF was clear. Nabeel Peralta MD Head Magnetic Resonance Angiography 01/27/17 Signed Impressions: Service Date/Time: Friday, January 27, 2017 10:33 - CONCLUSION: No intracranial vascular abnormality is identified. There is no aneurysm visualized. Angelo Allen MD IVC Filter Placement X-Ray 01/25/17 Signed Impressions: Service Date/Time: January 10:29 - CONCLUSION: Uncomplicated inferior vena cava filter placement as above. Yung Fowler MD Thoracic Spine MRI 01/24/17 Signed Impressions: Service Date/Time: Tuesday, January 24, 2017 22:29 - CONCLUSION: 1. Mild degenerative spondylosis most prominently at T11-L1 with slight effacement of the anterior thecal sac and left lateral recess. No significant neural foraminal stenosis. 2. No acute fracture. Juan Bhakta MD Lumbar Spine MRI 01/23/17 Signed Impressions: Service Date/Time: Monday, January 23, 2017 17:01 - CONCLUSION: 1. At L4-5 is a broad-based disc protrusion with severe central canal and lateral recess stenosis and flattening of the exiting right L4 nerve root. 2. L5-S1 there is a disc protrusion and moderate stenosis with flattening of the exiting L5 nerve roots bilaterally. 3. At L3-4 there is a moderate to severe central stenosis and lateral recess stenosis with mild foraminal stenosis. 4. No acute fracture or spondylolisthesis. Trace Holloway MD Lower Extremity Ultrasound 01/23/17 Signed Impressions: Service Date/Time: Monday, January 23, 2017 09:53 - CONCLUSION: Bilateral focal lower extremity DVT involving the posterior tibial veins. Angelo Garrido MD Cervical Spine MRI 01/23/17 Signed Impressions: Service Date/Time: Monday, January 23, 2017 17:01 - CONCLUSION: 1. Multilevel cervical spine degenerative changes as above. 2. Mild degrees of spinal stenosis at C3/C4-C6/C7. No cord compression or cord signal abnormality. 3. Age indeterminate left paracentral/foraminal disc protrusion at C6/C7. 4. Multilevel foraminal stenosis, most severe on the left at C6/C7. Please see individual levels above. 5. No fracture or subluxation of the cervical spine. Angelo Garrido MD Brain MRI 01/23/17 0000 Signed Impressions: Service Date/Time: Monday, January 23, 2017 17:01 - CONCLUSION: 1. No acute stroke or other acute intracranial abnormality demonstrated. 2. Moderate severity chronic white matter changes, nonspecific but most likely related to chronic small vessel disease. 3. Few scattered tiny lacunar infarcts of the brainstem. 4. Given the findings are not entirely specific, clinical evaluation for possible multiple sclerosis recommended. Angelo Garrido MD Knee X-Ray [id number]/22/[id number] Signed Impressions: Service Date/Time: Sunday, January 22, 2017 21:17 - CONCLUSION: 1. Evidence of moderate to large joint effusion. 2. No acute fracture or malalignment. 3. Mild 3 compartment osteoarthritic change. Benjamin Person MD Hip and Pelvis X-Ray [id number] Signed Impressions: Service Date/Time: Sunday, January 22, 2017 21:10 - CONCLUSION: 1. Mild to moderate degenerative change of both hips with no acute fracture or malalignment. There is flattening and remodeling of the right humeral head. Benjamin Person MD Objective Remarks GENERAL: 62-year-old male, resting in bed, on mechanical ventilation via trach HEENT: Normocephalic. Atraumatic. Pupils equal, round, reactive. NECK: Tracheostomy in place CHEST: b/l equal air entry CARDIOVASCULAR: normal rate, regular rhythm. ABDOMEN distended. No rigidity. Umbilical hernia is reducible. No guarding. PEG tube in place : Positive scrotal edema Sloan in situ MUSCULOSKELETAL: Pulses 2+. 1+ bilateral upper and lower extremity edema. NEUROLOGICAL: RASS -3. obtunded. weakly withdraws to pain x 4. Procedures 01/25/2017- Retrievable IVC Filter placement 01/26/17-lumbar puncture with fluoroscopy-by interventional radiology 02/01/17- lumbar puncture fluoroscopy by interventional radiology 02/10/17- Endotracheal Intubation 02/10/17-left IJ central venous line placed 02/10/17-left femoral arterial line placed 02/11/17-Diagnostic and therapeutic bronchoscopy with bronchoalveolar lavage 02/11/17-Left upper extremity incision and debridement with excision of septic cephalic vein 02/13/17- Extubated 02/20/17- endotracheal intubation 02/20/17- Left subclavian central line placement 02/20/17-Right radial A-line placement 02/22/17-EGD/colonoscopy 02/28/17-right radial a line 02/28/17- Endotracheal intubation 02/28/17- right sided introducer catheter placement 02/28/17- Right IJ central line placement 02/28/17-Right chest tube placement 02/28/17- Embolization of inferior and superior sacral branches of right internal iliac artery 03/01/17- Hemodialysis access catheter 03/03/17-Right IJ central line placement 03/11/17-Extubated 03/13/17- Endotracheal intubation 03/14/17-Tracheostomy placement, trach downsized to 6.0 [place]ley 03/30/17 03/15/17-PEG tube placement 04/11/17-CT Chest 04/13/17-thoracentesis right 600 cc removed A/P Problem List: (1) Septic shock ICD Code: A41.9 - Sepsis, unspecified organism; R65.21 - Severe sepsis with septic shock Status: Acute (2) Acute respiratory failure ICD Code: J96.00 - Acute respiratory failure, unspecified whether with hypoxia or hypercapnia Status: Chronic (3) Thrombophlebitis arm ICD Code: I80.8 - Phlebitis and thrombophlebitis of other sites (4) Aspiration pneumonia ICD Code: J69.0 - Pneumonitis due to inhalation of food and vomit Status: Acute (5) Atelectasis of left lung ICD Code: J98.11 - Atelectasis Status: Acute (6) Quadriparesis ICD Code: G82.50 - Quadriplegia, unspecified Status: Acute (7) DVT (deep venous thrombosis) ICD Code: I82.409 - Acute embolism and thrombosis of unspecified deep veins of unspecified lower extremity (8) Altered mental status ICD Code: R41.82 - Altered mental status, unspecified Status: Acute (9) CKD (chronic kidney disease) stage 3, GFR 30-59 ml/min ICD Code: N18.3 - Chronic kidney disease, stage 3 (moderate) Status: Chronic (10) Acute renal failure ICD Code: N17.9 - Acute kidney failure, unspecified Status: Acute (11) Diabetes mellitus ICD Code: E11.9 - Type 2 diabetes mellitus without complications Status: Chronic (12) Distal end of ulna fracture, closed ICD Code: S52.609A - Unspecified fracture of lower end of unspecified ulna, initial encounter for closed fracture Status: Acute (13) Gout ICD Code: M10.9 - Gout, unspecified Status: Chronic Assessment and Plan Assessment: 62yM with chronic multi-organ dysfunction now with recurrent septic shock. hgb stable, active bleeding has appeared to stop at this point. goals remain aggressive, although DNR code status. no improvements. renal function worsens: poor candidate for recurrent acute renal replacement therapy. overall poor prognosis. NEURO/PSYCH: Acute metabolic encephalopathy- persistent, worsening this morning. Quadriparesis secondary to suspected transverse myelitis Recurrent falls On no sedation. Monitor neuro status. Suspected transverse myelitis. Received methylprednisolone 250 mg IV every 6 hours 01/27-02/02, started back on hydrocortisone 02/21/17, initially tapering to 50 mg IV every 8 hours starting received 1 dose at 2100 prior to becoming hypotensive. weaning hydrocortisone taper and stopped 03/09. Resumed hydrocortisone 50mg IV Q6hrly on 03/14 as patient became hypotensive following intubation on 03/13 requiring levophed. LP 01/26 and 02/01. CSF culture negative 01/26, 02/01 Oligoclonal bands negative. CSF/serum IgG index is not elevated. VDRL nonreactive. Cryptococcal antigen negative. Brain MRI 01/23 no acute stroke. Few scattered lacunar infarcts of the brainstem. Moderate chronic white matter changes. MRI cervical/thoracic spine- mild spinal stenosis C3/C4 to C6/C7. No cord compression. RPR negative Neurology has been following, Dr. Crenshaw. Repeat CT brain 02/10 - negative Continue PT/OT oxycodone 5mg po q4h scheduled hydrocortisone taper. RESP: Acute hypoxemic respiratory failure - persistent. Healthcare associated pneumonia/Aspiration Pneumonia - recurrent. S/P Right-sided chest tube 02/28 Continue with vent support keep sat >92% Bronchodilators, pulm toilet, trach care Continue with SBT as vanna. s/p perc tracheostomy 03/14. Pulmonology following Dr. Estrada 04/13 CT guided thoracentesis scheduled emergently as discussed with Dr. Estrada - 600cc removed (right) 04/14-tracheostomy up sized to 8.0 [place] [address] invasive manager Dr. Estrada at bedside CV: Systolic heart failure likely chronic with ejection fraction 20-25% Hyperlipidemia History of hypertension Mild TR Sinus tachycardia Elevated troponin likely type II demand ischemia Septic Shock Hemorrhagic shock On Hydralazine 50mg Q8, Coreg 3.125mg BID-Monitor HR and BP keep MAP>65mmHg Atorvastatin 10 mg by mouth daily for dyslipidemia. 2-D echocardiogram 01/11 revealed EF 20-25%. Mild TR. Pulmonary arterial pressures were normal around 20 On Hydrocortisone 25mg Q12 GI: Large right retroperitoneal hematoma - resolved. Erosive esophagitis Adenomatous/hyperplastic colon polyps Severe acute protein calorie malnutrition Nausea/vomiting - resolved. Diarrhea Gastritis Diverticulosis Internal and external hemorrhoids Hiatal hernia Elevated lipase On Tube feeds Nepro advance to goal rate 40ml/hr 02/27 CT chest/abdomen and pelvis - 9.4 x 7.5 renal and 16 x 12 cm right psoas muscle hematoma. Fluid around liver and spleen. Right-sided nephrolithiasis CTA abdomen 02/28 - possible blushing around iliac/lumbar vessels Discussed with IR. s/p attempted embolization CT abdomen and pelvis 02/10 atrophic left kidney. Bilateral inguinal hernias fat- containing. Nonobstructing 12 mm right kidney stone repeat CT abd/pelvis did not show evidence of obstruction. patient clinically has been having diarrhea (c. diff negative 02/19). also with nausea/vomiting of unclear etiology. EGD/Colonoscopy-02/22/17 showed gastritis esophagitis, hiatal hernia, diverticulosis and multiple polyps in descending colon and sigmoid which were snared biopsied. 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 Avoid nephrotoxins Cr: 3.79 today from 3.41, UOP: 125ml overnight, on Lasix 20mg IV Q12, IV Albumin. Renal is following- Dr. Liao. Awaiting son's decision re HD. RIOS/SPEP negative. 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 Recommended nephrostomy tube if obstruction Last IHD was 03/22 ID: Septic shock- recurrent Abscess and Suppurative thrombophlebitis left upper extremity MSSA bacteremia Klebsiella UTI ESBL positive Acute aspiration pneumonia/HCAP 04/27 Sputum cx: Pseudomonas, Urine cx: C. Iw[place] , BC: 05/24 bottles: Coag negative staph likely contaminant 04/29 BC: NGTD 05/01 Wound cx: Pseudomonas, Group D enterococcus, GNR Continue with abx per ID ( on Micafungin) add Zosyn monitor for signs of infections ( fever, WBC) ID follow up Previously treated with Bactrim, ertapenem, intermittent vancomycin, nafcillin Blood cultures 2, UA ESBL positive Klebsiella UTI Sputum 03/14 - Pseudomonas came back resistant to imipenem, Stenotrophomonas maltophilia C-diff PCR negative wound service is following. stage IV sacral ulcer, ulcer right ankle/LE CT abd/pelvis 05/10: Retroperitoneal hematoma is slightly larger within its inferior portion relative to the prior exam. No acute hemorrhage seen to suggest recent rebleed HEME: Anemia DVT, bilateral posterior tibial vein, IVC filter Septic thrombophlebitis with occlusive thrombus mid cephalic and basilic vein side Monitor CBC s/p transfusion 2units PRBC ( 04/26) Received 10 PRBC, 14 FFP, 2 platelets, 1 cryo-02/28 Received 3 units PRBCs Ultrasound 01/23/17 - Bilateral lower extremity with occlusive posterior tibial vein DVTs. Heparin was initially started for DVT but was placed on hold due to LP with suspected traumatic tap. Currently holding full anticoagulation with enoxaparin 100 mg IV twice a day due to anemia as of 02/26 IVC filter was placed 01/25/17. Ultrasound LUE 02/10 occlusive thrombus mid cephalic vein, basilic vein.s. Transfuse 3 units PRBCs 02/27 Transfuse 2 units PRBCs 03/01. Transfused 1 unit PRBCs on 03/14 transfused 2 units prbc 05/06 ENDO: Diabetes mellitus Hypoglycemia History of prior adrenal insufficiency with shock Gout Accu-Cheks to maintain euglycemia Novulin R every 4 hours. Low Regimen MSK: Right distal ulna fracture. Recommended nonoperative management. PROPH: Lansoprazole 30 mg twice a day twice a day for stress ulcer prophylaxis. Has IVC filter. Therapeutic enoxaparin was placed on hold for retroperitoneal hematoma ACCESS: Right Femoral line placed today Patient is critically ill now with new onset hypotension, septic shock started on Levophed, worsening renal function, patient's son is refusing HD. Palliative care is following. Code status: Alternative code. CCT 30 mins Problem Qualifiers (1) Aspiration pneumonia: (2) DVT (deep venous thrombosis): Qualified Codes: I82.443 - Acute embolism and thrombosis of tibial vein, bilateral (3) Acute renal failure: Qualified Codes: N17.9 - Acute kidney failure, unspecified (4) Diabetes mellitus: (5) Gout: Hood Madera MD May 13, 2017 07:55
[2017-05-13] MEDS ORDERED: DEXTROSE 50% IN WATER 50 ML VIAL(D50) IV PUSH PRN (08:00)
[2017-05-13] MEDS: CHLORHEXIDINE 0.12% (ORAL KIT) 15 ML CUP MT SCH ×2 (08:00→21:04)
[2017-05-13] MEDS ORDERED: GLUCAGON 1 MG/ML VIAL OTHER PRN (08:00)
[2017-05-13] MEDS: TAMSULOSIN HCL 0.4 MG CAP PO SCH ×2 (09:00→21:00)
[2017-05-13] MEDS: SODIUM CHLORIDE 0.9% FLUSH 10 ML FLUSH IV FLUSH SCH ×3 (09:02→21:06)
[2017-05-13] MEDS: FUROSEMIDE 20 MG/2 ML VIAL IV PUSH SCH ×3 (09:03→21:03)
[2017-05-13] MEDS: LANSOPRAZOLE SOLUTAB 30 MG TAB NG SCH ×2 (09:03→21:25)
[2017-05-13] MEDS: LACTOBACILLUS ACIDOPHILUS TAB PO SCH ×3 (09:04→17:49)
[2017-05-13] MEDS: CARVEDILOL 3.125 MG TAB PO SCH (09:04)
[2017-05-13] MEDS: COLLAGENASE OINT 30 GM TUBE TOPICAL SCH (09:04)
[2017-05-13] MEDS: QUEtiapine FUMARATE 25 MG TAB PO SCH (09:04)
[2017-05-13] MEDS: CHOLESTYRAMINE 4 GM PACKET G-TUBE SCH ×2 (09:06→21:05)
--- NOTE | 2017-05-13 12:02 | HHI.NPPN ---
Subjective History of Present Illness 61-year-old with history of urinary stone patient again got unstable has recurrent bouts of ICU admission requiring ventilation and respiratory care started having scrotal swelling and acute renal failure again, he had mild hyperkalemia and this was treated I have been reconsulted again Additional Remarks Patient with trach on vent, more sleepy today, in mild distress. Review of Systems General Constitutional: Fatigue Objective Data Data Vital Signs Date Time Temp Pulse Resp B/P (MAP) Pulse Ox O2 Delivery O2 Flow Rate FiO2 05/13/17 08:29 98 35 05/13/17 08:00 35 05/13/17 06:00 88 05/13/17 04:11 98 35 05/13/17 04:00 98.6 90 18 95/52 (66) 98 05/13/17 04:00 90 05/13/17 04:00 35 05/13/17 02:00 89 05/13/17 01:38 95 35 05/13/17 00:00 96.7 86 19 114/59 (77) 100 05/13/17 00:00 35 05/13/17 00:00 86 05/12/17 22:00 73 05/12/17 20:00 78 05/12/17 20:00 95.4 78 17 128/65 (86) 100 05/12/17 20:00 35 05/12/17 19:53 100 35 05/12/17 18:00 82 05/12/17 16:00 97.9 89 16 128/59 (82) 99 05/12/17 16:00 89 05/12/17 16:00 35 05/12/17 15:23 100 35 05/12/17 14:09 22 05/12/17 14:00 92 -: 05/13/17 0443 05/13/17 0443 Physical Exam General Appearance: Pale, Anxious Eyes Eye Exam: Pupils Equal Throat Throat Exam: Oral Mucosa Hundred & Moist Neck Neck Exam: Neck Supple Pulmonary Resp Exam: Clear Bilaterally Cardiology CV Exam: Normal Sinus Rhythm Gastrointestinal/Abdomen GI Exam: Non-Tender, Distended Genitourinary Exam: Flank Non-Tender (scrotal edema) Extremeties Extremities Exam: Moderate Edema, Pitting Edema Neurologic Neuro Exam: Obtunded Assessment/Plan Problem List: (1) Acute renal failure ICD Codes: N17.9 - Acute kidney failure, unspecified Status: Acute Plan: Patient with pneumonia as, sepsis, acute renal failure Had pneumonia, developed sepsis with ARF. 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 Patient had been on dialysis earlier in hospitalization non oliguric ATN from sepsis He has multiple infections and pneumonia. Patient has improvement in the BP. Creatinine continue to increase. Urine out put is low. Creatinine slowly increasing, K is now normal. Has worsening edema, The son does not want HD after discussing with the patient. I will increase Lasix, supportive care. (2) CKD (chronic kidney disease) stage 3, GFR 30-59 ml/min ICD Codes: N18.3 - Chronic kidney disease, stage 3 (moderate) Status: Chronic Plan: Ultrasound revealed chronic kidney disease there is no kidney stones (3) Diabetes ICD Codes: E11.9 - Type 2 diabetes mellitus without complications Plan: Continue to monitor (4) Distal end of ulna fracture, closed ICD Codes: S52.609A - Unspecified fracture of lower end of unspecified ulna, initial encounter for closed fracture Status: Acute Plan: Orthopedic is following Problem Qualifiers (1) Acute renal failure: Qualified Codes: N17.9 - Acute kidney failure, unspecified Aicha Leonard MD May 13, 2017 12:02
[2017-05-13] MEDS ORDERED: SODIUM CHLOR 0.9% 250 ML INJ 250 ML IV ONE ×2 (13:45→14:45)
[2017-05-13] MEDS ORDERED: ALBUMIN 5% INJ 250 ML IV ONE ×2 (14:22→14:30)
[2017-05-13] MEDS ORDERED: NOREPINEPHRINE-DEXTROSE DRIP 250 ML IV ONE (14:52)
[2017-05-13] MEDS ORDERED: TERBUTALINE INJ 1 MG/ML AMP SQ PRN ×2 (15:00→18:00)
[2017-05-13] MEDS: NOREPINEPHRINE INJ 4 MG in SODIUM CHLOR 0.9% 250 ML INJ 246 ML IV PRN ×2 (15:48→21:58)
[2017-05-13] MEDS: MICAFUNGIN INJ 150 MG in SODIUM CHLORIDE 0.9% INJ 100 ML IV SCH (15:53)
[2017-05-13] MEDS ORDERED: SODIUM BICARBONATE 8.4% INJ 50 MEQ/50 ML SYR IV PUSH ONE (16:45)
--- NOTE | 2017-05-13 17:03 | PD.PROCEDR ---
Central Line Procedure REASON FOR PROCEDURE Central venous access PROCEDURE PERFORMED Central line placement: Right Femoral central line CONSENT Procedure was done emergently due to hemodynamic instability and was started on Levophed. ANESTHESIA Local injection of 1% Lidocaine DESCRIPTION OF THE PROCEDURE The patient was placed in supine, mild Trendelenburg position. The area was exposed and cleansed with ChloraPrep, times two. Large sterile drape was used to cover the patient, with the site exposed, under sterile conditions including cap, face mask, sterile gown, and sterile gloves. On single attempt, the introducer needle was inserted with negative pressure in syringe and venous flash was obtained. The guide wire was then advanced without any restriction and the needle was removed. The dilator was used without any complications. Using Seldinger technique the catheter was advanced over the guide wire to a depth of 20 centimeters. The guide wire was removed. All ports were aspirated with dark venous blood return and flushed easily with sterile saline. All ports were capped. Antibiotic disc was placed around central line at puncture site. The central line was secured to the skin with two interrupted 2.0 silk sutures. The area was bandaged with sterile see-through central line bandage. COMPLICATIONS: No apparent complications ESTIMATED BLOOD LOSS: Less than 1 cc. Hood Madera MD May 13, 2017 17:03
[2017-05-13 17:11] LABS: HEMATOCRIT 24.7 % (39.0-51.0)
[2017-05-13 17:21] LABS: REVIEW FLAG FINAL
[2017-05-13] MEDS ORDERED: PIPERACIL-TAZO 3.375 GM PREMIX 50 ML IV ONE (17:45)
[2017-05-13] MEDS: PHENYLEPHRINE INJ 40 MG in DEXTROSE 5% IN WATE 500 ML INJ 496 ML IV PRN ×2 (18:05)
[2017-05-13] MEDS ORDERED: LINEZOLID 600 MG TAB PO SCH (18:45)
[2017-05-13] MEDS ORDERED: MISCELLANEOUS PHARMACY INFORMATION XX PRN (18:45)
[2017-05-13] MEDS ORDERED: ASP: Documented ESBL, MDR A baumannii or P. aeruginosa PRN (18:45)
--- NOTE | 2017-05-13 18:45 | HHI.IDPN ---
Subjective Subjective Remarks BRIDGER hess for Dr Chang Patient is a 62-year-old male, admitted to the hospital for evaluation of pain in his right wrist. He gave a history of falling about a week ago and apparently had immediate pain in the right wrist. He did not seek any medical attention initially because reportedly he was very busy. He eventually presented, and he was found to have a distal ulnar fracture on plain films. He also had some redness and swelling. Orthopedics saw the patient, and was being treated conservatively with the splint. During this hospitalization also he started complaining of generalized weakness but more so in his lower extremity than his upper extremity. He had swelling in both lower extremity which revealed evidence of DVT in the posterior tibial veins. Neurology had seen the patient and he underwent lumbar puncture which apparently was traumatic. Patient was therefore not given anticoagulation because of the traumatic LP, and he underwent placement of an IVC filter on January 25. Patient had another lumbar puncture on February 01. He was felt to have transverse myelitis, and he was given high-dose IV Solu-Medrol from January 27 to February 02. There was apparently some improvement in his weakness. The imaging studies done for his weakness showed some spinal stenosis, and neurosurgery was consult that and recommended that there was no surgical intervention to be done. Patient has been stabilizing, but last night apparently deteriorated, and he ended up getting intubated, and had significant hypotension requiring pressors. There was also an ultrasound done of his left upper extremity which showed DVT, and there was evidence of superior 2 thrombophlebitis. Vascular surgery was consult to it and he had IND on his left upper extremity. Patient has had some fevers since yesterday. 2 blood cultures were done yesterday and they're now reported as growing gram-positive cocci in [place] in clusters. He is currently sedated and intubated. He is on Levophed and vasopressin. A central line was placed as well as a femoral a line. He apparently had an IV in his left upper extremity and that was removed yesterday. Patient also has history of chronic kidney disease, and nephrology evaluated the patient. He was just being monitored for his renal insufficiency. Reconsulted 04/12 for low grade fever, leucocytosis, worsening CXR concern for new pneumonia. Pt remains on vent Having fever Son refusing to restart HD Pt is anuric and getting markedly fluid overload no fever, but temps are trending down Hypotensive, on pressors Antibiotics Current Medications Medications (Trade) Dose Ordered Sig/Rosalia Route Start Time Stop Time Status Last Admin (NS Flush) 2 ml BID IV FLUSH 01/23/17 09:00 05/08/17 09:21 (Zofran Inj) 4 mg Q6H PRN IVP 01/23/17 00:30 02/26/17 17:23 (Dulcolax Supp) 10 mg DAILY PRN RECTAL 01/23/17 00:30 (Lipitor) 10 mg HS PO 01/24/17 21:00 Future hold 05/07/17 21:00 (Glucagon Inj) 1 mg UNSCH PRN OTHER 02/11/17 05:45 02/18/17 18:53 (Flomax) 0.4 mg Q12HR PO 02/17/17 15:00 Future hold 05/07/17 09:26 (Lactinex) 1 tab TID PO 02/19/17 13:00 05/08/17 13:02 (D50w (Vial) Inj) 25 ml UNSCH PRN IV PUSH 02/20/17 12:45 03/27/17 13:20 (Peridex 0.12% Liq) 15 ml BID@08,20 MT 02/28/17 08:00 05/08/17 08:00 (NS Flush) UNSCH PRN IV FLUSH 03/01/17 13:00 (Heparin Inj) UNSCH PRN IV FLUSH 03/01/17 13:00 (NS Flush) DAILY IV FLUSH 03/04/17 09:00 05/08/17 09:22 (Prevacid Odt) 30 mg BID NG 03/07/17 21:00 05/08/17 09:24 (Tylenol 650 Mg/ 20 ml Liq) 650 mg Q6H PRN PO 03/09/17 10:15 04/30/17 12:01 (Tenormin) 25 mg Q12HR PO 03/12/17 10:00 Future Hold 04/18/17 10:09 (Epogen Inj) 10,000 units UNSCH PRN IV PUSH 03/17/17 11:30 03/22/17 10:52 (Nitroglycerin 2% Oint) 2 inch Q6H PRN TOPICAL 03/23/17 14:00 03/29/17 01:20 (Norvasc) 10 mg DAILY PO 03/28/17 09:00 Future Hold 04/19/17 08:16 (Roxicodone Intensol Liq) 5 mg Q4H PO 04/01/17 18:00 05/08/17 13:09 (Xanax) 0.125 mg Q6H PRN PO 04/03/17 22:30 04/25/17 14:27 (Pill Splitter) 1 ea UNSCH PRN OTHER 04/03/17 22:45 (Levsin Liq) 0.125 mg Q4H PRN G-TUBE 04/06/17 15:00 04/12/17 10:09 (Questran 4 Gm Pkt) 4 gm Q12HR G-TUBE 04/08/17 21:00 05/08/17 09:23 (SEROquel) 25 mg DAILY PO 04/09/17 09:00 05/08/17 09:24 (Santyl Oint) 1 applic DAILY TOPICAL 04/10/17 09:00 05/08/17 09:25 (Duoneb Neb) 1 ampule Q2HR NEB PRN NEB 04/12/17 17:00 05/05/17 15:57 (Lopressor Inj) 2.5 mg Q6H PRN IV PUSH 04/23/17 01:15 Future Hold 04/23/17 09:36 Albumin Human 100 ml @ 60 mls/hr Q12H IV 04/30/17 17:00 05/08/17 03:43 (Lopressor) 25 mg Q12HR PO 05/02/17 10:45 Future Hold 05/05/17 08:15 (Free Water) 300 ml Q4HR G-TUBE 05/05/17 16:00 05/08/17 12:00 (SoluCORTEF INJ) 50 mg Q6H IV PUSH 05/06/17 11:00 05/08/17 13:01 (Diflucan) 200 mg DAILY PO 05/08/17 11:00 05/08/17 13:08 (NovoLIN R SUPPLEMENTAL SCALE) 1 Q4HR SQ 05/08/17 12:00 05/08/17 13:02 Lines Central line - 04/27 Past Medical History Reviewed Allergies: Coded Allergies: levofloxacin (Verified Allergy, Severe, 01/22/17) Objective . Vital Signs Date Time Temp Pulse Resp B/P (MAP) Pulse Ox O2 Delivery O2 Flow Rate FiO2 05/13/17 18:05 67 72/41 05/13/17 17:50 65 72/52 05/13/17 16:00 35 05/13/17 15:48 65 82/47 05/13/17 15:00 96 35 05/13/17 12:05 99 35 05/13/17 12:00 35 05/13/17 08:29 98 35 05/13/17 08:00 97.8 82 20 96/50 (65) 89 05/13/17 08:00 35 05/13/17 06:00 88 05/13/17 04:11 98 35 05/13/17 04:00 98.6 90 18 95/52 (66) 98 05/13/17 04:00 90 05/13/17 04:00 35 05/13/17 02:00 89 05/13/17 01:38 95 35 05/13/17 00:00 96.7 86 19 114/59 (77) 100 05/13/17 00:00 35 05/13/17 00:00 86 05/12/17 22:00 73 05/12/17 20:00 78 05/12/17 20:00 95.4 78 17 128/65 (86) 100 05/12/17 20:00 35 05/12/17 19:53 100 35 05/13/17 05/13/17 05/14/17 15:00 23:00 07:00 Intake Total 250 ml 700 ml Balance 250 ml 700 ml IV Total 250 ml 700 ml . Laboratory Tests Test 05/12/17 06:11 05/13/17 04:43 05/13/17 16:58 White Blood Count 17.4 TH/MM3 16.8 TH/MM3 Red Blood Count 3.14 MIL/MM3 3.08 MIL/MM3 Hemoglobin 8.6 GM/DL 8.4 GM/DL 8.0 GM/DL Hematocrit 26.8 % 25.8 % 24.7 % Mean Corpuscular Volume 85.5 FL 83.6 FL Mean Corpuscular Hemoglobin 27.4 PG 27.1 PG Mean Corpuscular Hemoglobin Concent 32.1 % 32.5 % Red Cell Distribution Width 17.3 % 17.5 % Platelet Count 235 TH/MM3 216 TH/MM3 Mean Platelet Volume 7.6 FL 7.8 FL Neutrophils (%) (Auto) 76.0 % 81.8 % Lymphocytes (%) (Auto) 9.3 % 5.1 % Monocytes (%) (Auto) 9.1 % 3.4 % Eosinophils (%) (Auto) 5.4 % 9.5 % Basophils (%) (Auto) 0.2 % 0.2 % Neutrophils # (Auto) 13.2 TH/MM3 13.7 TH/MM3 Lymphocytes # (Auto) 1.6 TH/MM3 0.8 TH/MM3 Monocytes # (Auto) 1.6 TH/MM3 0.6 TH/MM3 Eosinophils # (Auto) 0.9 TH/MM3 1.6 TH/MM3 Basophils # (Auto) 0.0 TH/MM3 0.0 TH/MM3 CBC Comment AUTO DIFF AUTO DIFF Differential Total Cells Counted 100 100 Neutrophils % (Manual) 68 % 80 % Band Neutrophils % 1 % 2 % Lymphocytes % 17 % 5 % Monocytes % 4 % 2 % Eosinophils % 4 % 10 % Neutrophils # (Manual) 13.1 TH/MM3 13.9 TH/MM3 Metamyelocytes 4 % Myelocytes 2 % 1 % Differential Comment FINAL DIFF MANUAL FINAL DIFF MANUAL Platelet Estimate NORMAL NORMAL Platelet Morphology Comment NORMAL NORMAL Basophilic Stippling FAINT Tear Drop Cells 1+ Ovalocytes 1+ Laboratory Tests Test 05/12/17 06:11 05/13/17 04:43 Blood Urea Nitrogen 150 MG/DL 165 MG/DL Creatinine 3.41 MG/DL 3.79 MG/DL Random Glucose 84 MG/DL 89 MG/DL Calcium Level 7.5 MG/DL 7.5 MG/DL Sodium Level 132 MEQ/L 132 MEQ/L Potassium Level 3.5 MEQ/L 3.6 MEQ/L Chloride Level 98 MEQ/L 99 MEQ/L Carbon Dioxide Level 15.1 MEQ/L 15.4 MEQ/L Anion Gap 19 MEQ/L 18 MEQ/L Imaging Last Impressions Chest X-Ray 05/10/17 0000 Signed Impressions: Service Date/Time: April 08:58 - CONCLUSION: Pulmonary vascular congestion remains. Duy Genao MD Abdomen/Pelvis CT 05/10/17 0000 Signed Impressions: Service Date/Time: April 15:38 - CONCLUSION: 1. Retroperitoneal hematoma is slightly larger within its inferior portion relative to the prior exam. No acute hemorrhage seen to suggest recent rebleed. No findings to suggest interval infection. 2. Bilateral pleural effusions. These are larger than the prior study. 3. Small volume free fluid within the belly. Candido Mendoza Jr., MD Thoracentesis 04/13/17 1054 Signed Impressions: Service Date/Time: Thursday, April 13, 2017 15:26 - CONCLUSION: Uncomplicated CT-guided right thoracentesis. Candido Mendoza Jr., MD Chest CT 04/12/17 1558 Signed Impressions: Service Date/Time: March 17:51 - CONCLUSION: 1. Slight increase in size of bilateral effusions and basilar atelectasis, left greater than right compared with February 27. Tracheostomy in good position. Trace Holloway MD Renal Ultrasound 04/02/17 0000 Signed Impressions: Service Date/Time: Sunday, April 02, 2017 16:59 - CONCLUSION: Limited exam with the left kidney being unable to be evaluated in the bladder not distended. There do appear to be multiple shadowing stones at the right kidney without hydronephrosis. Angelo Manzo MD Wrist X-Ray 03/27/17 0000 Signed Impressions: Service Date/Time: Monday, March 27, 2017 13:21 - CONCLUSION: 1. No acute fracture is identified. A portion of the previously documented distal ulna fracture remains visualized. 2. 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 Angelo Allen MD Aortography 02/28/17 0000 Signed Impressions: Service Date/Time: Tuesday, February 28, 2017 08:01 - CONCLUSION: 1. Active hemorrhage from distal right lateral sacral and iliolumbar branches successfully coil and Gelfoam embolized, as above. Juan Bhakta MD Abdomen X-Ray 02/26/17 0000 Signed Impressions: Service Date/Time: Sunday, February 26, 2017 14:52 - CONCLUSION: 1. Nonobstructive bowel gas pattern. Juan Bhakta MD Upper Extremity Ultrasound 02/10/17 0000 Signed Impressions: Service Date/Time: Friday, February 10, 2017 18:46 - CONCLUSION: Occlusive thrombus in the cephalic and basilic veins. Benjamin Person MD Lung Scan-VQ Nuclear Medicine 02/10/17 Signed Impressions: Service Date/Time: Friday, February 10, 2017 22:17 - CONCLUSION: Low probability pulmonary embolism. Candido Patton MD Head CT 02/10/17 Signed Impressions: Service Date/Time: Friday, February 10, 2017 23:51 - CONCLUSION: Negative noncontrast CT brain. Candido Patton MD Lumbar Puncture Fluoroscopy 02/01/17 Signed Impressions: Service Date/Time: January 09:35 - CONCLUSION: Uncomplicated fluoroscopically guided lumbar puncture. CSF was clear. Nabeel Peralta MD Head Magnetic Resonance Angiography 01/27/17 Signed Impressions: Service Date/Time: Friday, January 27, 2017 10:33 - CONCLUSION: No intracranial vascular abnormality is identified. There is no aneurysm visualized. Angelo Allen MD IVC Filter Placement X-Ray 01/25/17 Signed Impressions: Service Date/Time: January 10:29 - CONCLUSION: Uncomplicated inferior vena cava filter placement as above. Yung Fowler MD Thoracic Spine MRI 01/24/17 Signed Impressions: Service Date/Time: Tuesday, January 24, 2017 22:29 - CONCLUSION: 1. Mild degenerative spondylosis most prominently at T11-L1 with slight effacement of the anterior thecal sac and left lateral recess. No significant neural foraminal stenosis. 2. No acute fracture. Jaun Bhakta MD Lumbar Spine MRI 01/23/17 Signed Impressions: Service Date/Time: Monday, January 23, 2017 17:01 - CONCLUSION: 1. At L4-5 is a broad-based disc protrusion with severe central canal and lateral recess stenosis and flattening of the exiting right L4 nerve root. 2. L5-S1 there is a disc protrusion and moderate stenosis with flattening of the exiting L5 nerve roots bilaterally. 3. At L3-4 there is a moderate to severe central stenosis and lateral recess stenosis with mild foraminal stenosis. 4. No acute fracture or spondylolisthesis. Trace Holloway MD Lower Extremity Ultrasound 01/23/17 Signed Impressions: Service Date/Time: Monday, January 23, 2017 09:53 - CONCLUSION: Bilateral focal lower extremity DVT involving the posterior tibial veins. Angelo Garrido MD Cervical Spine MRI 01/23/17 0000 Signed Impressions: Service Date/Time: Monday, January 23, 2017 17:01 - CONCLUSION: 1. Multilevel cervical spine degenerative changes as above. 2. Mild degrees of spinal stenosis at C3/C4-C6/C7. No cord compression or cord signal abnormality. 3. Age indeterminate left paracentral/foraminal disc protrusion at C6/C7. 4. Multilevel foraminal stenosis, most severe on the left at C6/C7. Please see individual levels above. 5. No fracture or subluxation of the cervical spine. Angelo Garrido MD Brain MRI 01/23/17 0000 Signed Impressions: Service Date/Time: Monday, January 23, 2017 17:01 - CONCLUSION: 1. No acute stroke or other acute intracranial abnormality demonstrated. 2. Moderate severity chronic white matter changes, nonspecific but most likely related to chronic small vessel disease. 3. Few scattered tiny lacunar infarcts of the brainstem. 4. Given the findings are not entirely specific, clinical evaluation for possible multiple sclerosis recommended. Angelo Garrido MD Knee X-Ray 01/22/[id number] Signed Impressions: Service Date/Time: Sunday, January 22, 2017 21:17 - CONCLUSION: 1. Evidence of moderate to large joint effusion. 2. No acute fracture or malalignment. 3. Mild 3 compartment osteoarthritic change. Benjamin Person MD Hip and Pelvis X-Ray [id number]/22/[id number] Signed Impressions: Service Date/Time: Sunday, January 22, 2017 21:10 - CONCLUSION: 1. Mild to moderate degenerative change of both hips with no acute fracture or malalignment. There is flattening and remodeling of the right humeral head. Benjamin Person MD Physical Exam GENERAL: Ill appearing SKIN: Cool and dry. No generalized rash. Edematous in extremities. Anasarca + erythematous skin noted Stage IV sacral decub, wound bed is mostly necrotic with minimal bleeding on perifery She also has multiple weeping wounds on his extremietes EYES: [place] conjunctiva. No petechia or hemorrhage. EARS, NOSE AND THROAT: Nose without bleeding or purulent nasal discharge. Dry oral mucosa NECK: Trach site ok. CARDIOVASCULAR: Regular rate and rhythm. Soft heart sounds. No murmurs RESPIRATORY: Coarse BS bilaterally, decreased at bases. ABDOMEN: Soft, not tender, distended, PEG site ok. No guarding No hepatosplenomegaly incontinent of liquid stool EXTREMITIES: No clubbing, cyanosis. Edema 4+. Dressing on R leg wound with lots of drainage. Generalized anasarca. NEUROLOGICAL: sedated PSYCHIATRIC: unable to assess LINE: Lines with no evidence of infection Assessment & Plan Remarks IMPRESSION Recurrent respiratory failure, ?plugging, PNA - last CXR better New Sepsis (fever and leucocytosis), temps up again x 1, and WBC still elevated Aspiration Pneumonia in health care setting. Mucus plugs with atelectasis. Leucocytosis, persistent, up and down ESBL in urine in recent past. 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 PNA, ?plugging/atelctasis - MDR, I to Zerbaxa, has been tolerating T-piece - likely effusion adding to his respiratory problems, on top of his plugging /secretions Large R retroperitoneal bleed, S/P multiple transfusions and S/P coiling of bleeders Anemia, due to bleed, retroperitoneal MSSA sepsis, due to suppurative thrombophlebitis LUE, S/P I and D and excision of portion of cephalic vein - S/P Rx Respiratory failure, has had several intubations - reintubated again 02/28, extubated 03/11 - reintubated again - S/P trach 03/14 Rx 7 days high dose solumedrol for transverse myelitis Wu LE DVT has IVC filter placed 01/25 - ?hypercoagulable state Chronic kidney disease, worsening creatinine - shock and compression of ureter by hematoma Known DM, HTN Diarrhea, C.diff negative Renal insufficiency, worsening New sepsis New ARF, marked fluid oveload - familyrefused HD unlikely to survive w/o renla replacement therapy Prognosis is quite poor RECOMMENDATION cont micafungin start zyvox IV change zosyn to meropenm dw Beena Barrera MD May 13, 2017 18:45
--- NOTE | 2017-05-13 18:56 | HHI.PR ---
Addendum to Inpatient Note Additional Information zyvox changed to daptomycin 2/2 interactions Beena Becerril MD May 13, 2017 18:56
[2017-05-13] MEDS ORDERED: DAPTOmycin INJ 750 MG in SODIUM CHLORIDE 0.9% INJ 100 ML IV SCH (21:00)
[2017-05-13] MEDS: ATORVASTATIN 10 MG TAB PO SCH (21:05)
[2017-05-13] MEDS: MEROPENEM INJ 500 MG in SODIUM CHLORIDE 0.9% INJ 100 ML IV SCH (21:05)
[2017-05-14] VITALS (18 sets, daily range): BP systolic 83–107; BP diastolic 44–56; PULSE 79–92; RESP 15–19; TEMP 97.1–99; O2SAT 91–99
[2017-05-14] MEDS ORDERED: PIPERACIL-TAZO 2.25 GM PREMIX 50 ML IV SCH
[2017-05-14] MEDS: INSULIN NovoLIN REGULAR SUPPLEMENTAL SCALE SQ SCH ×6 (00:11→20:00)
[2017-05-14] MEDS: oxyCODONE HCL ORAL CONC 5 MG/0.25 ML SYRINGE PO SCH ×6 (02:00→22:02)
[2017-05-14] MEDS: ALBUMIN 25% INJ 100 ML IV SCH ×2 (04:25→16:53)
[2017-05-14] MEDS: PHENYLEPHRINE INJ 40 MG in DEXTROSE 5% IN WATE 500 ML INJ 496 ML IV PRN ×6 (04:26→19:56)
[2017-05-14] MEDS: NOREPINEPHRINE INJ 4 MG in SODIUM CHLOR 0.9% 250 ML INJ 246 ML IV PRN ×4 (04:27→20:32)
[2017-05-14 04:34] LABS: AUTOMATED NEUTROPHIL # 34.8 TH/MM3 (1.8-7.7); BASOPHIL # 0.1 TH/MM3 (0-0.2); BASOPHIL % 0.2 % (0.0-2.0); EOSINOPHIL % 9.5 % (0.0-4.0); HEMATOCRIT 28.5 % (39.0-51.0); LYMPH % 3.6 % (9.0-44.0); LYMPHOCYTE # 1.5 TH/MM3 (1.0-4.8); MEAN CELL VOLUME 85.7 FL (80.0-100.0); MEAN CORPUSCULAR HEMOGLOBIN 27.1 PG (27.0-34.0); MEAN CORPUSCULAR HGB CONC 31.6 % (32.0-36.0); MONO % 4.4 % (0.0-8.0); NEUT % 82.3 % (16.0-70.0); PLATELET COUNT 237 TH/MM3 (150-450); RED BLOOD COUNT 3.33 MIL/MM3 (4.50-5.90); RED CELL DISTRIBUTION WIDTH 17.7 % (11.6-17.2); WHITE BLOOD COUNT 42.2 TH/MM3 (4.0-11.0)
[2017-05-14 04:38] LABS: HEMO FLAGS AUTO DIFF
[2017-05-14 05:03] LABS: BICARBONATE 15.9 MEQ/L (21.0-32.0); POTASSIUM 3.5 MEQ/L (3.5-5.1)
[2017-05-14] MEDS: FUROSEMIDE 20 MG/2 ML VIAL IV PUSH SCH ×3 (05:54→22:03)
[2017-05-14 06:50] LABS: BANDS 6 % (0-6); EOSINOPHILS 9 % (0-4); METAMYELOCYTES 1 % (0-1); NEUTROPHIL # MANUAL DIFF 34.2 TH/MM3 (1.8-7.7); PLATELET ESTIMATE SMEAR NORMAL (NORMAL); PLATELET MORPHOLOGY NORMAL (NORMAL); POLYS (SEG NEUTROPHILS) 74 % (16-70); SCAN/DIFF FINAL DIFF MANUAL; WBC DIFF SAMPLE 100
[2017-05-14 06:51] LABS: OVALOCYTES 1+ (NORMAL)
[2017-05-14] MEDS: TAMSULOSIN HCL 0.4 MG CAP PO SCH ×3 (09:00→21:00)
[2017-05-14] MEDS: QUEtiapine FUMARATE 25 MG TAB PO SCH (09:13)
[2017-05-14] MEDS: COLLAGENASE OINT 30 GM TUBE TOPICAL SCH (09:13)
[2017-05-14] MEDS: SODIUM CHLORIDE 0.9% FLUSH 10 ML FLUSH IV FLUSH SCH ×3 (09:13→21:00)
[2017-05-14] MEDS: CHOLESTYRAMINE 4 GM PACKET G-TUBE SCH ×2 (09:13→23:10)
[2017-05-14] MEDS: LANSOPRAZOLE SOLUTAB 30 MG TAB NG SCH ×2 (09:13→21:00)
[2017-05-14] MEDS: CHLORHEXIDINE 0.12% (ORAL KIT) 15 ML CUP MT SCH ×2 (09:13→20:00)
[2017-05-14] MEDS: LACTOBACILLUS ACIDOPHILUS TAB PO SCH ×3 (09:13→18:58)
[2017-05-14] MEDS: MEROPENEM INJ 500 MG in SODIUM CHLORIDE 0.9% INJ 100 ML IV SCH ×2 (09:14→22:03)
--- NOTE | 2017-05-14 11:25 | HHI.NPPN ---
Subjective History of Present Illness 61-year-old with history of urinary stone patient again got unstable has recurrent bouts of ICU admission requiring ventilation and respiratory care started having scrotal swelling and acute renal failure again, he had mild hyperkalemia and this was treated I have been reconsulted again Additional Remarks Patient with trach on vent, remain unresponsive. Review of Systems General Constitutional: Fatigue Objective Data Data Vital Signs Date Time Temp Pulse Resp B/P (MAP) Pulse Ox O2 Delivery O2 Flow Rate FiO2 05/14/17 10:00 85 05/14/17 09:15 85 100/59 05/14/17 08:06 94 35 05/14/17 08:00 35 05/14/17 08:00 83 05/14/17 08:00 99.0 83 16 107/56 (73) 94 05/14/17 06:00 79 05/14/17 04:27 82 103/55 05/14/17 04:26 82 103/55 05/14/17 04:00 82 05/14/17 04:00 82 15 107/51 (69) 95 05/14/17 04:00 35 05/14/17 02:00 80 05/14/17 02:00 97 35 05/14/17 00:00 97.2 81 16 96/54 (68) 96 05/14/17 00:00 81 05/14/17 00:00 35 05/13/17 22:07 96 35 05/13/17 22:00 77 05/13/17 21:58 75 87/51 05/13/17 20:00 76 05/13/17 20:00 35 05/13/17 20:00 97.5 76 18 86/49 (61) 96 05/13/17 18:05 67 72/41 05/13/17 18:00 67 05/13/17 17:50 65 72/52 05/13/17 16:00 66 05/13/17 16:00 35 05/13/17 16:00 97.6 66 18 82/47 (59) 96 05/13/17 15:48 65 82/47 05/13/17 15:00 96 35 05/13/17 14:00 64 05/13/17 13:58 9 05/13/17 12:05 99 35 05/13/17 12:00 96.8 68 13 84/45 (58) 98 05/13/17 12:00 68 05/13/17 12:00 35 -: 05/14/17 0400 05/14/17 0400 Microbiology 05/13/17 Aerobic Blood Culture - Preliminary, Resulted NO GROWTH IN 1 DAY 05/13/17 Anaerobic Blood Culture - Preliminary, Resulted NO GROWTH IN 1 DAY 05/13/17 Aerobic Blood Culture - Preliminary, Resulted NO GROWTH IN 1 DAY 05/13/17 Anaerobic Blood Culture - Preliminary, Resulted NO GROWTH IN 1 DAY Physical Exam General Appearance: Pale, Anxious Eyes Eye Exam: Pupils Equal Throat Throat Exam: Oral Mucosa [place] & Moist Neck Neck Exam: Neck Supple Pulmonary Resp Exam: Clear Bilaterally Cardiology CV Exam: Normal Sinus Rhythm Gastrointestinal/Abdomen GI Exam: Non-Tender, Distended Genitourinary Exam: Flank Non-Tender (scrotal edema) Extremeties Extremities Exam: Moderate Edema, Pitting Edema Neurologic Neuro Exam: Obtunded Assessment/Plan Problem List: (1) Acute renal failure ICD Codes: N17.9 - Acute kidney failure, unspecified Status: Acute Plan: Patient with pneumonia as, sepsis, acute renal failure Had pneumonia, developed sepsis with ARF. 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 Patient had been on dialysis earlier in hospitalization non oliguric ATN from sepsis He has multiple infections and pneumonia. Patient has improvement in the BP. Creatinine continue to increase. Urine out put is low. Creatinine slowly increasing, K is now normal. Has worsening edema, The son does not want HD after discussing with the patient. Urine out put is still low, add Metolazone. (2) CKD (chronic kidney disease) stage 3, GFR 30-59 ml/min ICD Codes: N18.3 - Chronic kidney disease, stage 3 (moderate) Status: Chronic Plan: Ultrasound revealed chronic kidney disease there is no kidney stones (3) Diabetes ICD Codes: E11.9 - Type 2 diabetes mellitus without complications Plan: Continue to monitor (4) Distal end of ulna fracture, closed ICD Codes: S52.609A - Unspecified fracture of lower end of unspecified ulna, initial encounter for closed fracture Status: Acute Plan: Orthopedic is following Problem Qualifiers (1) Acute renal failure: Qualified Codes: N17.9 - Acute kidney failure, unspecified Aicha Leonard MD May 14, 2017 11:25
[2017-05-14] MEDS: METOLAZONE 5 MG TAB PEG SCH ×2 (12:21→22:02)
--- NOTE | 2017-05-14 15:01 | HHI.CCPN ---
Subjective Remarks/Hospital Course Date of admission: 01/22 Date of critical care medicine consult 02/10 due to acute hypoxemic respiratory failure requiring emergent intubation 62-year-old male with a past medical history of hypertension, hyperlipidemia, diabetes mellitus, gout, uric acid kidney stones, kidney disease of unknown stage who originally presented to [facility] emergency department on 01/22 after a fall in which he sustained a right distal ulna fracture. He had been experiencing a gradual primarily lower extremity weakness as well as upper extremity weakness that was progressive. Neurology consult was obtained. MRI revealed no acute stroke. He had multifocal white matter changes. Tiny lacunar infarcts of the brainstem. Lumbar MRI report states L4-L5 disc protrusion with cetnral canal stenosis. Dr. Blackwell evaluated and states no cord compression on MRI C/T spine and recommended nonoperative management. Symptoms were felt to be consistent with transverse myelitis and he underwent Solumedrol 250 mg IV q6 hours 01/27-02/02. He also was found to have occlusive thrombus in the bilateral posterior tibial veins. Heparin was being avoided because he had traumatic lumbar puncture on 01/26 and 02/01. IVC filter was placed 01/25. He was undergoing physical therapy, reportedly making some improvements with plan to eventually discharged home with his son (max assist standing, and bed to chair per PT note). Apparently he had some vomiting the evening of 02/09 and additional vomiting on 02/10. He had a fever 102.8 on 02/09. Last recorded bowel movement was 02/03. Tonight he had acute onset of severe hypoxemia and respiratory distress. [facility] called and he was brought emergently to [facility] where his sats were 64% on 100% nonrebreather with mean arterial pressure 44. He was emergently intubated, CVL and art line placed. He is in septic shock. SUBJ: 02/11: Patient remains intubated sedated, critically ill. FiO2 reduced to 80% after increasing PEEP to 12. In severe septic shock Levophed at 16 mcg/m, vasopressin at 0.04 international units. D/W vascular surgery Dr. Enciso. He performed bedside Left upper extremity incision and debridement and excision of septic cephalic vein. 02/12: Remains intubated sedated profoundly septic, in shock on vasopressin and 7 mcg/min Levophed. FiO2 has improved to 45%, WBC count remains elevated with 20 ,000 white count significant left shift. Slight improvement in creatinine 2.9 urine output 750 ml 24 hours. 2-D echo shows LV ejection fraction 20-25%, no vegetation reported. Blood cultures 4 staph aureus. Wound culture pending 02/13: Remains critically ill but stable to improving. WBC count is down to 16, creatinine improving to 2.36. Off all pressors. Urine output also improving. 1.5L in 24 hours 02/14: Extubated 02/13. Tolerating well. WBC now down to 12.8. Creat improving 2.3 to 2. UO 3.4L. remains off all pressors. Was started on Precedex yesterday night for agitation, currently on 0.5 g per KG per hour. Chest x-ray shows left more than right air space disease 02/20/17 Re consult: 62-year-old male who was originally admitted for lower extremity weakness and found to have what was thought to be possible transverse myelitis. His hospital course his included a healthcare associated pneumonia, septic thrombophlebitis, DVT. He was most recently in the hospital floor where he had significant nausea and vomiting and diarrhea. His C. difficile test was recently negative. However, he has experienced worsening acute on chronic renal failure, hypotension, tachycardia, and severe hypoxemia. He did have a bout of vomiting earlier today, and his hospitalist attending suspects that he may have aspirated. He arrives by rapid response to the ICU with a nonrebreather in place in severe respiratory distress with SPO2 of 85%. I emergently intubate the patient, see separate procedure note for details. At this point the patient was hypotensive and tachycardic. He does have a history of an EF of 20%, however clinically he appears in florid septic shock. I placed central line and arterial line started vasopressors and gentle IV fluid resuscitation with 1 L of LR. Patient today was empirically broadened to vancomycin and Zosyn from his oxacillin which was initially treating MSSA bacteremia. He is recultured. Critical-care medicine is consulted to evaluate and manage his worsening multiorgan system failure and decompensated septic shock 02/21: Patient remains intubated sedated. Becomes anxious tachypnea on sedation lightening. Chest x-ray shows mild left lower lobe infiltrate. WBC count is slightly improved today from 23.2 t0 21. C Diff negative. UO adequate, creat slightly worsening. 1.57 today 02/22: Remains intubated sedated tolerated CPAP yesterday, plan is for EGD/ Colonscopy. WBC count back to normal. UO adequate. Creat stable 02/23: Tolerating CPAP trials following commands. Will do a spontaneous breathing trials. Status post EGD colonoscopy yesterday -Gastritis, esophagitis. Diverticulosis and multiple polyps. Urine output adequate but creatinine increasing to 1.7 with patient requiring multiple straight catheterization. We'll reinsert Sloan. 02/24: Breathing comfortably 24 hours after extubation. Protects airway well. 02/25: Excoriate bottom, will place rectal FMS. Start pureed diet. 02/26: Afebrile. Complaining of nausea and vomiting this afternoon. Increased stool output. Continue potassium replacement today. 02/27: 10 PM overnight, acutely hypotensive. Received 3 units PRBCs. Antibiotic coverage broadened to piperacillin/tazobactam, cortisol and 1 dose of vancomycin. Oxacillin drip currently on hold. Symptomatically, patient continues to vague abdominal pain/nausea vomiting which is unchanged for the past several days. Lipase elevated yesterday. Lactic acid normal. Troponin normal. Urinary retention after removal of Sloan. Straight catheter 1300. Cc 02/28: New diagnosis large retroperitoneal hematoma. Received 10 PRBC, 14 FFP, 2 platelets, 1 cryo-, 6 g calcium chloride, 2 is magnesium sulfate and 4 mg Bumex. CTA abdomen revealed possible arterial bleeds iliac, lumbar. Patient is currently on norepinephrine and epinephrine drips and possible need right nephrostomy tube placement due to large hematoma compressing ureter. Intra-abdominal bladder pressures are currently 13 03/01: Afebrile. Received 25 g albumin and 1 unit PRBCs overnight. Intra- abdominal bladder pressures currently 19. Currently on 3 micrograms per minute of norepinephrine. [id number]-[id number] 1 out of 4 on 4 mics grams per kilogram per minute of cisatracurium. 03/02: Slightly hypothermic overnight. Hemoglobin appears to have stabilized. Troponin bump overnight likely secondary to demand ischemia from hypotension. Hemodynamically stable off all vasopressors. 03/03: Received 1 PRBCs overnight. 3 units currently. Off all vasopressors. Likely rebleeding. Stool is dark. 03/04: Remains unstable. Ventilator dependent. 03/05: afebrile. hgb stable. 03/06: bumex drip started overnight. good uop after bumex initiated. still grossly volume overloaded. Cr downtrending. more awake with transition to propofol. still too volume overloaded to tolerate extubation. hgb stable. 03/07: Afebrile. Tolerating tube feeds at goal with Nepro. Positive BM. On low-dose fentanyl and propofol drips. Potassium currently being replaced. 03/08: Eyes will open on ventilator. Afebrile. Tolerating tube feeding. Failed PSV trial yesterday due to apnea. 03/09: Following commands. Tmax 101. Tolerating tube feeding. One hour PSV trial yesterday. Currently tolerating well so far today 1.5 hours 03/10: Low-grade temperatures. Tolerating PSV trial 10 hours yesterday. Currently at 5/5 at 35%. We'll probably attempt extubation a.m. after hemodialysis. 03/11: Extubated currently in 4 L nasal cannula. Thick secretions thick clear with cough. Currently afebrile. Tolerating diet previously. 03/12: Sleepy this morning but arouses. Following commands. Refusing diet at the present time. On 2 L nasal cannula. 03/13: Patient reintubated last night for worsening respiratory status. Currently sedated on mechanical ventilation. Became hypotensive following intubation and is on Levophed 20 mics per minute. 03/14: Sedated, orally intubated on mech vent at the time of my evaluation this AM, subsequently underwent perc trach placement. Remains on levophed for pressor support. Transfused 1 unit PRBCs today. Persisten 03/15: Trach site clean, dry. CXR with bilateral basilar infiltrates. 03/16: Pulmonary congestion persists. Clinical condition not improving. Prognosis becoming increasingly bleak. 03/17: Glucose intolerance worse. No improvement in neurological function. 03/18: Remains on mechanical ventilation via tracheostomy. Off pressors now. Neurologic status remains poor. 03/19: Drowsy, encephalopathic, arousable. On mechanical ventilation via tracheostomy. Levemir increased for hyperglycemia today. Remains off pressors 03/20: More awake, moves both upper extremities. On mechanical ventilation via tracheostomy. Daily C Pap trials ongoing. 03/21: Awake and alert. On mechanical ventilation via tracheostomy. Opens and closes eyes on command. 03/22: Awake and alert. Tolerated T PIECE for 7 hours yesterday. Dialyzed today. 03/23: Currently on T piece trial. Status post dialysis yesterday on 3 L. Awake and alert. Wants to eat. 03/24: Currently afebrile. Hemodialysis catheter discontinued yesterday from left IJ. Persistent leukocytosis noted. Potassium will be replaced. Furosemide 40 mg twice a day IV to 20 mg IV twice a day 03/25: WBC count unchanged. Patient on T piece with humidified air greater than 48 hours, tolerating it well. Reconsulted 04/12: The patient was transferred emergently from the floor/ [facility]. Patient was initially seen by farm laborer Dr. Estrada, and the patient was noted to be tachypneic on T piece of 40%. ABGs were performed which showed a PaO2 of 60 on T piece of FiO2 of 40%. Chest x-ray was performed which showed loss of entire left hemidiaphragm greenhouse assistant consolidation in the left lower lobe. Concern for mucus plugging versus fluid. The patient was transferred emergently to [facility] placed on a ventilator CT of the chest is pending. Upon arrival in the room the patient is alert and oriented, mouthing words, nodding head to yes and no questions O2 sat is 100% but patient is currently on mechanical ventilation. Currently in no respiratory distress. 04/13: Tmax 99.8. The patient's oxygen requirements have decreased currently FiO2 35% with a PaO2 1 blood gas of 85, O2 saturation 100%. No respiratory distress noted. Patient underwent CT of the chest yesterday noted pleural effusions left greater than right, diagnostic/and therapeutic CT thoracentesis plan for this a.m.. 04/14: Patient underwent CT-guided thoracentesis of the right side with approximately 600 cc withdrawn. Today farm laborer Dr. LABOY in and up size indwelling 6.0 Shiley to a 8.0 Shiley. Minimal bleeding noted around the site. X-ray improving. Patient started on CPAP trials today, as well as tube feeds were initiated. 04/15: Placed on T piece this morning via tracheostomy. Appears to be tolerating it. Laying in bed not in any acute distress. 04/16: Awake and alert. Tolerating T piece. Tolerating PEG feeds. 04/17: Awake and alert. Tolerating T piece. Tolerating tube feeds via PEG 04/18: Awake and alert. Tolerating TPs. Tolerating tube feeds. Passed swallow eval 04/19: Awake and alert. Remains on T piece. Wants to move out of ICU as he indicates to me once again as he has for the past few days. Awaiting CIC bed 04/20: Awake and alert. Remains on T piece. Developed hypotension last night for which she was transiently on Levophed however has been off since early this morning. ID adjusting antibiotics and working up for new sepsis. 04/21: Awake and alert. On T piece. Awaiting CIC bed for the last few days. 04/22: Awake and alert. Remains on T piece. Received 500 cc normal saline this morning for tachycardia. 04/23 No events overnight. Remains on TP's with 35% FIO2. Afebrile. 04/24: Resting comfortably. Got short of breath with Passy-Rafy valve which was taken off. 04/25: Remains on T piece. Awaiting transfer out of ICU. 04/26: Remains on T piece. Still awaiting transfer out of ICU since 04/17. 04/27 Patient became hypotensive, bradycardic and hypoxic, ABG on TP's last night showed acute hypercapnic resp acidosis (PH 7.10, CO2: 80) he was subsequently placed on mechanical ventilator. Patient was given Albumin, 2u PRBC and started on Levophed 3mics. Renal function worse today with Cr: 1.53 from 1.13 04/28 No events overnight off Levophed since yesterday. On no sedation. Afebrile. 04/29 Patient is on ventilator via trach. T;100.4 04/30 Patient remains on ventilator via trach. Afebrile. 05/01 No events overnight. Afebrile. 05/02 No events overnight. On ventilator via trach. T: 100.1 last night. 05/03 Patient remains on ventilator via trach. 05/04 No events overnight. Afebrile. Tolerating tube feeds. 05/05: more hypoxic this morning with increased secretions. fio2 rising. ID on board. leukocytosis persists. 05/06: continues to clinically decline. hypotensive and anemic. no evidence of GI bleeding, but acute drop in hgb. no uop overnight. restarted norepinephrine this morning. 2 units prbc ordered. recultured. had discussion with his son: with recurrent bleeding and worsening septic shock, unlikely to survive this hospital stay. son continues to press for aggressive measures. 05/07: continues to worsen overall. mental status still declining. off vasopresors this morning, but kidney injury worsening. wbc uptrending. ID still involved. hgb stabilized. likely too unstable for travel to CT scan. Palliative re-engaged to have further discussions with Son. I spoke with him yesterday, and Dr. Hogan spoke with him again overnight. likely poor prognosis at this point. 05/08: no improvements or changes. off vasopressors. renal function continues to worsen. 05/09: BREEZY worsening. no need for acute LENO SEWER at this time. no changes. remains off pressors. wbc slightly downtrended. overall poor prognosis. palliative still involved. 05/10 Patient remains on ventilator via trach. Afebrile. Renal function is gradually worsening. TF held overnight for emesis. 05/11 No events overnight. Afebrile. Repeat CT abd/pelvis yesterday showed retroperitoneal hematoma is slightly larger within its inferior portion relative to the prior exam. No acute hemorrhage seen to suggest recent rebleed 05/12 No events overnight. Patient was on TPs's yesterday and CPAP overnight. Afebrile. WBC is trending down. 05/13 Patient is on ventilator via trach. Renal function continue to worse with Cr: 3.79 and UOP 125ml overnight. Awaiting son's decision re dialysis. 05/14: Remains on mechanical ventilation via tracheostomy. Remains lethargic. Patient's son has refused hemodialysis Objective Vital Signs Date Time Temp Pulse Resp B/P (MAP) Pulse Ox O2 Delivery O2 Flow Rate FiO2 05/14/17 14:53 86 98/53 05/14/17 14:18 98 35 05/14/17 12:00 97.6 18 05/11/17 12:28 T-piece Intake and Output 05/14/17 05/14/17 05/15/17 08:00 16:00 00:00 Intake Total 1423 ml 850 ml Output Total 125 ml Balance 1298 ml 850 ml Result Diagram: 05/14/17 0400 05/14/17 0400 Imaging Last Impressions Chest X-Ray 05/10/17 0000 Signed Impressions: Service Date/Time: April 08:58 - CONCLUSION: Pulmonary vascular congestion remains. Duy Genao MD Abdomen/Pelvis CT 05/10/17 0000 Signed Impressions: Service Date/Time: April 15:38 - CONCLUSION: 1. Retroperitoneal hematoma is slightly larger within its inferior portion relative to the prior exam. No acute hemorrhage seen to suggest recent rebleed. No findings to suggest interval infection. 2. Bilateral pleural effusions. These are larger than the prior study. 3. Small volume free fluid within the belly. Candido Mendoza Jr., MD Thoracentesis 04/13/17 1054 Signed Impressions: Service Date/Time: Thursday, April 13, 2017 15:26 - CONCLUSION: Uncomplicated CT-guided right thoracentesis. Candido Mendoza Jr., MD Chest CT 04/12/17 1558 Signed Impressions: Service Date/Time: March 17:51 - CONCLUSION: 1. Slight increase in size of bilateral effusions and basilar atelectasis, left greater than right compared with February 27. Tracheostomy in good position. Trace Holloway MD Renal Ultrasound 04/02/17 0000 Signed Impressions: Service Date/Time: Sunday, April 02, 2017 16:59 - CONCLUSION: Limited exam with the left kidney being unable to be evaluated in the bladder not distended. There do appear to be multiple shadowing stones at the right kidney without hydronephrosis. Angelo Manzo MD Wrist X-Ray 03/27/17 0000 Signed Impressions: Service Date/Time: Monday, March 27, 2017 13:21 - CONCLUSION: 1. No acute fracture is identified. A portion of the previously documented distal ulna fracture remains visualized. 2. 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 Angelo Allen MD Aortography 02/28/17 0000 Signed Impressions: Service Date/Time: Tuesday, February 28, 2017 08:01 - CONCLUSION: 1. Active hemorrhage from distal right lateral sacral and iliolumbar branches successfully coil and Gelfoam embolized, as above. Juan Bhakta MD Abdomen X-Ray 02/26/17 0000 Signed Impressions: Service Date/Time: Sunday, February 26, 2017 14:52 - CONCLUSION: 1. Nonobstructive bowel gas pattern. Juan Bhakta MD Upper Extremity Ultrasound 02/10/17 Signed Impressions: Service Date/Time: Friday, February 10, 2017 18:46 - CONCLUSION: Occlusive thrombus in the cephalic and basilic veins. Benjamin Person MD Lung Scan-V[facility] Nuclear Medicine 02/10/17 Signed Impressions: Service Date/Time: Friday, February 10, 2017 22:17 - CONCLUSION: Low probability pulmonary embolism. Candido Patton MD Head CT 02/10/17 Signed Impressions: Service Date/Time: Friday, February 10, 2017 23:51 - CONCLUSION: Negative noncontrast CT brain. Candido Patton MD Lumbar Puncture Fluoroscopy 02/01/17 Signed Impressions: Service Date/Time: January 09:35 - CONCLUSION: Uncomplicated fluoroscopically guided lumbar puncture. CSF was clear. Nabeel Peralta MD Head Magnetic Resonance Angiography 01/27/17 Signed Impressions: Service Date/Time: Friday, January 27, 2017 10:33 - CONCLUSION: No intracranial vascular abnormality is identified. There is no aneurysm visualized. Angelo Allen MD IVC Filter Placement X-Ray 01/25/17 Signed Impressions: Service Date/Time: January 10:29 - CONCLUSION: Uncomplicated inferior vena cava filter placement as above. Yung Fowler MD Thoracic Spine MRI 01/24/17 Signed Impressions: Service Date/Time: Tuesday, January 24, 2017 22:29 - CONCLUSION: 1. Mild degenerative spondylosis most prominently at T11-L1 with slight effacement of the anterior thecal sac and left lateral recess. No significant neural foraminal stenosis. 2. No acute fracture. Juan Bhakta MD Lumbar Spine MRI 01/23/17 Signed Impressions: Service Date/Time: Monday, January 23, 2017 17:01 - CONCLUSION: 1. At L4-5 is a broad-based disc protrusion with severe central canal and lateral recess stenosis and flattening of the exiting right L4 nerve root. 2. L5-S1 there is a disc protrusion and moderate stenosis with flattening of the exiting L5 nerve roots bilaterally. 3. At L3-4 there is a moderate to severe central stenosis and lateral recess stenosis with mild foraminal stenosis. 4. No acute fracture or spondylolisthesis. Trace Holloway MD Lower Extremity Ultrasound 01/23/17 Signed Impressions: Service Date/Time: Monday, January 23, 2017 09:53 - CONCLUSION: Bilateral focal lower extremity DVT involving the posterior tibial veins. Angelo Garrido MD Cervical Spine MRI 01/23/17 Signed Impressions: Service Date/Time: Monday, January 23, 2017 17:01 - CONCLUSION: 1. Multilevel cervical spine degenerative changes as above. 2. Mild degrees of spinal stenosis at C3/C4-C6/C7. No cord compression or cord signal abnormality. 3. Age indeterminate left paracentral/foraminal disc protrusion at C6/C7. 4. Multilevel foraminal stenosis, most severe on the left at C6/C7. Please see individual levels above. 5. No fracture or subluxation of the cervical spine. Angelo Garrido MD Brain MRI 01/23/17 Signed Impressions: Service Date/Time: Monday, January 23, 2017 17:01 - CONCLUSION: 1. No acute stroke or other acute intracranial abnormality demonstrated. 2. Moderate severity chronic white matter changes, nonspecific but most likely related to chronic small vessel disease. 3. Few scattered tiny lacunar infarcts of the brainstem. 4. Given the findings are not entirely specific, clinical evaluation for possible multiple sclerosis recommended. Angelo Garrido MD Knee X-Ray [id number]/22/[id number] Signed Impressions: Service Date/Time: Sunday, January 22, 2017 21:17 - CONCLUSION: 1. Evidence of moderate to large joint effusion. 2. No acute fracture or malalignment. 3. Mild 3 compartment osteoarthritic change. Benjamin Person MD Hip and Pelvis X-Ray [id number] Signed Impressions: Service Date/Time: Sunday, January 22, 2017 21:10 - CONCLUSION: 1. Mild to moderate degenerative change of both hips with no acute fracture or malalignment. There is flattening and remodeling of the right humeral head. Benjamin Person MD Objective Remarks GENERAL: 62-year-old male, resting in bed, on mechanical ventilation via trach HEENT: Normocephalic. Atraumatic. Pupils equal, round, reactive. NECK: Tracheostomy in place CHEST: b/l equal air entry CARDIOVASCULAR: normal rate, regular rhythm. ABDOMEN distended. No rigidity. Umbilical hernia is reducible. No guarding. PEG tube in place : Positive scrotal edema Sloan in situ MUSCULOSKELETAL: Pulses 2+. 1+ bilateral upper and lower extremity edema. NEUROLOGICAL: RASS -3. obtunded. weakly withdraws to pain x 4. Procedures 01/25/2017- Retrievable IVC Filter placement 01/26/17-lumbar puncture with fluoroscopy-by interventional radiology 02/01/17- lumbar puncture fluoroscopy by interventional radiology 02/10/17- Endotracheal Intubation 02/10/17-left IJ central venous line placed 02/10/17-left femoral arterial line placed 02/11/17-Diagnostic and therapeutic bronchoscopy with bronchoalveolar lavage 02/11/17-Left upper extremity incision and debridement with excision of septic cephalic vein 02/13/17- Extubated 02/20/17- endotracheal intubation 02/20/17- Left subclavian central line placement 02/20/17-Right radial A-line placement 02/22/17-EGD/colonoscopy 02/28/17-right radial a line 02/28/17- Endotracheal intubation 02/28/17- right sided introducer catheter placement 02/28/17- Right IJ central line placement 02/28/17-Right chest tube placement 02/28/17- Embolization of inferior and superior sacral branches of right internal iliac artery 03/01/17- Hemodialysis access catheter 03/03/17-Right IJ central line placement 03/11/17-Extubated 03/13/17- Endotracheal intubation 03/14/17-Tracheostomy placement, trach downsized to 6.0 Anni 03/30/17 03/15/17-PEG tube placement 04/11/17-CT Chest 04/13/17-thoracentesis right 600 cc removed A/P Problem List: (1) Septic shock ICD Code: A41.9 - Sepsis, unspecified organism; R65.21 - Severe sepsis with septic shock Status: Acute (2) Acute respiratory failure ICD Code: J96.00 - Acute respiratory failure, unspecified whether with hypoxia or hypercapnia Status: Chronic (3) Thrombophlebitis arm ICD Code: I80.8 - Phlebitis and thrombophlebitis of other sites (4) Aspiration pneumonia ICD Code: J69.0 - Pneumonitis due to inhalation of food and vomit Status: Acute (5) Atelectasis of left lung ICD Code: J98.11 - Atelectasis Status: Acute (6) Quadriparesis ICD Code: G82.50 - Quadriplegia, unspecified Status: Acute (7) DVT (deep venous thrombosis) ICD Code: I82.409 - Acute embolism and thrombosis of unspecified deep veins of unspecified lower extremity (8) Altered mental status ICD Code: R41.82 - Altered mental status, unspecified Status: Acute (9) CKD (chronic kidney disease) stage 3, GFR 30-59 ml/min ICD Code: N18.3 - Chronic kidney disease, stage 3 (moderate) Status: Chronic (10) Acute renal failure ICD Code: N17.9 - Acute kidney failure, unspecified Status: Acute (11) Diabetes mellitus ICD Code: E11.9 - Type 2 diabetes mellitus without complications Status: Chronic (12) Distal end of ulna fracture, closed ICD Code: S52.609A - Unspecified fracture of lower end of unspecified ulna, initial encounter for closed fracture Status: Acute (13) Gout ICD Code: M10.9 - Gout, unspecified Status: Chronic Assessment and Plan Assessment: 62yM with chronic multi-organ dysfunction now with recurrent septic shock. hgb stable, active bleeding has appeared to stop at this point. goals remain aggressive, although DNR code status. no improvements. renal function worsens: poor candidate for recurrent acute renal replacement therapy. overall poor prognosis. NEURO/PSYCH: Acute metabolic encephalopathy- persistent, worsening this morning. Quadriparesis secondary to suspected transverse myelitis Recurrent falls On no sedation. Monitor neuro status. Suspected transverse myelitis. Received methylprednisolone 250 mg IV every 6 hours 01/27-02/02, started back on hydrocortisone 02/21/17, initially tapering to 50 mg IV every 8 hours starting received 1 dose at 2100 prior to becoming hypotensive. weaning hydrocortisone taper and stopped 03/09. Resumed hydrocortisone 50mg IV Q6hrly on 03/14 as patient became hypotensive following intubation on 03/13 requiring levophed. LP 01/26 and 02/01. CSF culture negative 01/26, 02/01 Oligoclonal bands negative. CSF/serum IgG index is not elevated. VDRL nonreactive. Cryptococcal antigen negative. Brain MRI 01/23 no acute stroke. Few scattered lacunar infarcts of the brainstem. Moderate chronic white matter changes. MRI cervical/thoracic spine- mild spinal stenosis C3/C4 to C6/C7. No cord compression. RPR negative Neurology has been following, Dr. Crenshaw. Repeat CT brain 02/10 - negative Continue PT/OT oxycodone 5mg po q4h scheduled hydrocortisone taper. RESP: Acute hypoxemic respiratory failure - persistent. Healthcare associated pneumonia/Aspiration Pneumonia - recurrent. S/P Right-sided chest tube 02/28 Continue with vent support keep sat >92% Bronchodilators, pulm toilet, trach care Continue with SBT as vanna. s/p perc tracheostomy 03/14. Pulmon[address] Estrada 04/13 CT guided thoracentesis scheduled emergently as discussed with Dr. Estrada - 600cc removed (right) 04/14-tracheostomy up sized to 8.[address] [place] [address]. Estrada at bedside CV: Systolic heart failure likely chronic with ejection fraction 20-25% Hyperlipidemia History of hypertension Mild TR Sinus tachycardia Elevated troponin likely type II demand ischemia Septic Shock Hemorrhagic shock On Hydralazine 50mg Q8, Coreg 3.125mg BID-Monitor HR and BP keep MAP>65mmHg Atorvastatin 10 mg by mouth daily for dyslipidemia. 2-D echocardiogram 01/11 revealed EF 20-25%. Mild TR. Pulmonary arterial pressures were normal around 20 On Hydrocortisone 25mg Q12 GI: Large right retroperitoneal hematoma - resolved. Erosive esophagitis Adenomatous/hyperplastic colon polyps Severe acute protein calorie malnutrition Nausea/vomiting - resolved. Diarrhea Gastritis Diverticulosis Internal and external hemorrhoids Hiatal hernia Elevated lipase On Tube feeds Nepro advance to goal rate 40ml/hr 02/27 CT chest/abdomen and pelvis - 9.4 x 7.5 renal and 16 x 12 cm right psoas muscle hematoma. Fluid around liver and spleen. Right-sided nephrolithiasis CTA abdomen 02/28 - possible blushing around iliac/lumbar vessels Discussed with IR. s/p attempted embolization CT abdomen and pelvis 02/10 atrophic left kidney. Bilateral inguinal hernias fat- containing. Nonobstructing 12 mm right kidney stone repeat CT abd/pelvis did not show evidence of obstruction. patient clinically has been having diarrhea (c. diff negative 02/19). also with nausea/vomiting of unclear etiology. EGD/Colonoscopy-02/22/17 showed gastritis esophagitis, hiatal hernia, diverticulosis and multiple polyps in descending colon and sigmoid which were snared biopsied. 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 Avoid nephrotoxins on Lasix 20mg IV Q12, IV Albumin. Renal is following- Dr. Liao. Patient's son has refused hemodialysis. RIOS/SPEP negative. 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 Recommended nephrostomy tube if obstruction Last IHD was 03/22 ID: Septic shock- recurrent Abscess and Suppurative thrombophlebitis left upper extremity MSSA bacteremia Klebsiella UTI ESBL positive Acute aspiration pneumonia/HCAP 04/27 Sputum cx: Pseudomonas, Urine cx: Ivania Bustillo , BC: 05/24 bottles: Coag negative staph likely contaminant 04/29 BC: NGTD 05/01 Wound cx: Pseudomonas, Group D enterococcus, GNR Continue with abx per ID ( on Micafungin) add Zosyn monitor for signs of infections ( fever, WBC) ID follow up Previously treated with Bactrim, ertapenem, intermittent vancomycin, nafcillin Blood cultures 2, UA ESBL positive Klebsiella UTI Sputum 03/14 - Pseudomonas came back resistant to imipenem, Stenotrophomonas maltophilia C-diff PCR negative wound service is following. stage IV sacral ulcer, ulcer right ankle/LE CT abd/pelvis 05/10: Retroperitoneal hematoma is slightly larger within its inferior portion relative to the prior exam. No acute hemorrhage seen to suggest recent rebleed HEME: Anemia DVT, bilateral posterior tibial vein, IVC filter Septic thrombophlebitis with occlusive thrombus mid cephalic and basilic vein side Monitor CBC s/p transfusion 2units PRBC ( 04/26) Received 10 PRBC, 14 FFP, 2 platelets, 1 cryo-02/28 Received 3 units PRBCs Ultrasound 01/23/17 - Bilateral lower extremity with occlusive posterior tibial vein DVTs. Heparin was initially started for DVT but was placed on hold due to LP with suspected traumatic tap. Currently holding full anticoagulation with enoxaparin 100 mg IV twice a day due to anemia as of 02/26 IVC filter was placed 01/25/17. Ultrasound LUE 02/10 occlusive thrombus mid cephalic vein, basilic vein.s. Transfuse 3 units PRBCs 02/27 Transfuse 2 units PRBCs 03/01. Transfused 1 unit PRBCs on 03/14 transfused 2 units prbc 05/06 ENDO: Diabetes mellitus Hypoglycemia History of prior adrenal insufficiency with shock Gout Accu-Cheks to maintain euglycemia Novulin R every 4 hours. Low Regimen MSK: Right distal ulna fracture. Recommended nonoperative management. PROPH: Lansoprazole 30 mg twice a day twice a day for stress ulcer prophylaxis. Has IVC filter. Therapeutic enoxaparin was placed on hold for retroperitoneal hematoma ACCESS: Right Femoral line placed 05/[address] Becerril on 05/14 Patient is critically ill now with new onset hypotension, septic shock started on Levophed, worsening renal function, patient's son is refusing HD. Palliative care is following. Code status: Alternative code. CCT 30 mins Problem Qualifiers (1) Aspiration pneumonia: (2) DVT (deep venous thrombosis): Qualified Codes: I82.443 - Acute embolism and thrombosis of tibial vein, bilateral (3) Acute renal failure: Qualified Codes: N17.9 - Acute kidney failure, unspecified (4) Diabetes mellitus: (5) Gout: Devin Puente MD May 14, 2017 15:01
--- NOTE | 2017-05-14 16:01 | HHI.IDPN ---
Note Infectious Disease Note ID COVERAGE: Patient is unresponsive on the vent. On the vent. Diffuse edema. Temp okay. WBC elevated. No urine output. Noted that family refused dialysis. Patient is a 62-year-old male, admitted to the hospital for evaluation of pain in his right wrist. He gave a history of falling about a week ago and apparently had immediate pain in the right wrist. He did not seek any medical attention initially because reportedly he was very busy. He eventually presented, and he was found to have a distal ulnar fracture on plain films. He also had some redness and swelling. Orthopedics saw the patient, and was being treated conservatively with the splint. During this hospitalization also he started complaining of generalized weakness but more so in his lower extremity than his upper extremity. He had swelling in both lower extremity which revealed evidence of DVT in the posterior tibial veins. Neurology had seen the patient and he underwent lumbar puncture which apparently was traumatic. Patient was therefore not given anticoagulation because of the traumatic LP, and he underwent placement of an IVC filter on January 25. Patient had another lumbar puncture on February 01. He was felt to have transverse myelitis, and he was given high-dose IV Solu-Medrol from January 27 to February 02. There was apparently some improvement in his weakness. The imaging studies done for his weakness showed some spinal stenosis, and neurosurgery was consult that and recommended that there was no surgical intervention to be done. Patient has been stabilizing, but last night apparently deteriorated, and he ended up getting intubated, and had significant hypotension requiring pressors. There was also an ultrasound done of his left upper extremity which showed DVT, and there was evidence of superior 2 thrombophlebitis. Vascular surgery was consult to it and he had IND on his left upper extremity. Patient has had some fevers since yesterday. 2 blood cultures were done yesterday and they're now reported as growing gram-positive cocci in [place] in clusters. He is currently sedated and intubated. He is on Levophed and vasopressin. A central line was placed as well as a femoral a line. He apparently had an IV in his left upper extremity and that was removed yesterday. Patient also has history of chronic kidney disease, and nephrology evaluated the patient. He was just being monitored for his renal insufficiency. Reconsulted 04/12 for low grade fever, leucocytosis, worsening CXR concern for new pneumonia. Lines Central line - 04/27 Allergies: Coded Allergies: levofloxacin (Verified Allergy, Severe, 01/22/17) Meds: OBJECTIVE: Vital Signs Date Time Temp Pulse Resp B/P (MAP) Pulse Ox O2 Delivery O2 Flow Rate FiO2 05/14/17 14:53 86 98/53 05/14/17 14:18 98 35 05/14/17 14:00 84 05/14/17 12:00 85 05/14/17 12:00 97.6 85 18 95/51 (66) 98 05/14/17 12:00 35 05/14/17 11:25 86 100/57 05/14/17 11:20 97 35 05/14/17 10:00 85 05/14/17 09:15 85 100/59 05/14/17 08:06 94 35 05/14/17 08:00 35 05/14/17 08:00 83 05/14/17 08:00 99.0 83 16 107/56 (73) 94 05/14/17 06:00 79 05/14/17 04:27 82 103/55 05/14/17 04:26 82 103/55 05/14/17 04:00 82 05/14/17 04:00 82 15 107/51 (69) 95 05/14/17 04:00 35 05/14/17 02:00 80 05/14/17 02:00 97 35 05/14/17 00:00 97.2 81 16 96/54 (68) 96 05/14/17 00:00 81 05/14/17 00:00 35 05/13/17 22:07 96 35 05/13/17 22:00 77 05/13/17 21:58 75 87/51 05/13/17 20:00 76 05/13/17 20:00 35 05/13/17 20:00 97.5 76 18 86/49 (61) 96 05/13/17 18:05 67 72/41 05/13/17 18:00 67 05/13/17 17:50 65 72/52 05/13/17 16:00 66 05/13/17 16:00 35 05/13/17 16:00 97.6 66 18 82/47 (59) 96 Laboratory Tests Test 05/13/17 04:43 05/13/17 16:58 05/14/17 04:00 White Blood Count 16.8 TH/MM3 42.2 TH/MM3 Red Blood Count 3.08 MIL/MM3 3.33 MIL/MM3 Hemoglobin 8.4 GM/DL 8.0 GM/DL 9.0 GM/DL Hematocrit 25.8 % 24.7 % 28.5 % Mean Corpuscular Volume 83.6 FL 85.7 FL Mean Corpuscular Hemoglobin 27.1 PG 27.1 PG Mean Corpuscular Hemoglobin Concent 32.5 % 31.6 % Red Cell Distribution Width 17.5 % 17.7 % Platelet Count 216 TH/MM3 237 TH/MM3 Mean Platelet Volume 7.8 FL 8.3 FL Neutrophils (%) (Auto) 81.8 % 82.3 % Lymphocytes (%) (Auto) 5.1 % 3.6 % Monocytes (%) (Auto) 3.4 % 4.4 % Eosinophils (%) (Auto) 9.5 % 9.5 % Basophils (%) (Auto) 0.2 % 0.2 % Neutrophils # (Auto) 13.7 TH/MM3 34.8 TH/MM3 Lymphocytes # (Auto) 0.8 TH/MM3 1.5 TH/MM3 Monocytes # (Auto) 0.6 TH/MM3 1.8 TH/MM3 Eosinophils # (Auto) 1.6 TH/MM3 4.0 TH/MM3 Basophils # (Auto) 0.0 TH/MM3 0.1 TH/MM3 CBC Comment AUTO DIFF AUTO DIFF Differential Total Cells Counted 100 100 Neutrophils % (Manual) 80 % 74 % Band Neutrophils % 2 % 6 % Lymphocytes % 5 % 5 % Monocytes % 2 % 5 % Eosinophils % 10 % 9 % Neutrophils # (Manual) 13.9 TH/MM3 34.2 TH/MM3 Myelocytes 1 % Differential Comment FINAL DIFF MANUAL FINAL DIFF MANUAL Platelet Estimate NORMAL NORMAL Platelet Morphology Comment NORMAL NORMAL Ovalocytes 1+ 1+ Metamyelocytes 1 % Laboratory Tests Test 05/13/17 04:43 05/14/17 04:00 Blood Urea Nitrogen 165 MG/DL 152 MG/DL Creatinine 3.79 MG/DL 4.05 MG/DL Random Glucose 89 MG/DL 213 MG/DL Calcium Level 7.5 MG/DL 7.5 MG/DL Sodium Level 132 MEQ/L 130 MEQ/L Potassium Level 3.6 MEQ/L 3.5 MEQ/L Chloride Level 99 MEQ/L 96 MEQ/L Carbon Dioxide Level 15.4 MEQ/L 15.9 MEQ/L Anion Gap 18 MEQ/L 18 MEQ/L Estimat Glomerular Filtration Rate 15 ML/MIN Microbiology Date/Time Source Procedure Growth Status 05/13/17 21:09 Blood Peripheral Aerobic Blood Culture - Preliminary Gram Positive Cocci Resulted 05/13/17 21:09 Blood Peripheral Anaerobic Blood Culture - Preliminary NO GROWTH IN 1 DAY Resulted 05/13/17 18:35 Blood Peripheral Aerobic Blood Culture - Preliminary NO GROWTH IN 1 DAY Resulted 05/13/17 18:35 Blood Peripheral Anaerobic Blood Culture - Preliminary NO GROWTH IN 1 DAY Resulted Imaging Chest X-Ray 05/10/17 0000 Signed Impressions: Service Date/Time: April 08:58 - CONCLUSION: Pulmonary vascular congestion remains. Duy Genao MD Abdomen/Pelvis CT 05/10/17 0000 Signed Impressions: Service Date/Time: April 15:38 - CONCLUSION: 1. Retroperitoneal hematoma is slightly larger within its inferior portion relative to the prior exam. No acute hemorrhage seen to suggest recent rebleed. No findings to suggest interval infection. 2. Bilateral pleural effusions. These are larger than the prior study. 3. Small volume free fluid within the belly. Candido Mendoza Jr., MD Chest X-Ray 05/03/17 0000 Signed Impressions: Service Date/Time: April 10:19 - CONCLUSION: 1. Poor lung aeration 2. Interstitial vascular prominence 3. Significant left lung opacity characteristic of moderate pleural effusion and underlying basilar air space disease. Lenny Ware MD Thoracentesis 04/13/17 1054 Signed Impressions: Service Date/Time: Thursday, April 13, 2017 15:26 - CONCLUSION: Uncomplicated CT-guided right thoracentesis. Candido Mendoza Jr., MD Chest CT 04/12/17 1558 Signed Impressions: Service Date/Time: March 17:51 - CONCLUSION: 1. Slight increase in size of bilateral effusions and basilar atelectasis, left greater than right compared with February 27. Tracheostomy in good position. Trace Holloway MD Renal Ultrasound 04/02/17 0000 Signed Impressions: Service Date/Time: Sunday, April 02, 2017 16:59 - CONCLUSION: Limited exam with the left kidney being unable to be evaluated in the bladder not distended. There do appear to be multiple shadowing stones at the right kidney without hydronephrosis. Angelo Manzo MD Wrist X-Ray 03/27/17 0000 Signed Impressions: Service Date/Time: Monday, March 27, 2017 13:21 - CONCLUSION: 1. No acute fracture is identified. A portion of the previously documented distal ulna fracture remains visualized. 2. 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 Angelo Allen MD Aortography 02/28/17 0000 Signed Impressions: Service Date/Time: Tuesday, February 28, 2017 08:01 - CONCLUSION: 1. Active hemorrhage from distal right lateral sacral and iliolumbar branches successfully coil and Gelfoam embolized, as above. Juan Bhakta MD Abdomen/Pelvis CT 02/28/17 0000 Signed Impressions: Service Date/Time: Tuesday, February 28, 2017 06:51 - CONCLUSION: 1. The right retroperitoneal hematoma has increased in size, as above. There are 2 serpiginous arterially enhancing structures visualized, one in the right psoas muscle and another extending into the hematoma at the right iliac fossa. These could represent sites of continued active bleeding. 2. Stable moderate size left and small right pleural effusion with associated compressive atelectasis. 3. Stable small volume of free fluid in the abdomen and pelvis. There is also anasarca. The findings concerning the retroperitoneal hematoma were discussed with Dr. Aguiar via telephone at approximately 7: 10 AM on 02/28/2017. Angelo Allen MD Abdomen X-Ray 02/26/17 0000 Signed Impressions: Service Date/Time: Sunday, February 26, 2017 14:52 - CONCLUSION: 1. Nonobstructive bowel gas pattern. Juan Bhakta MD Upper Extremity Ultrasound 02/10/17 0000 Signed Impressions: Service Date/Time: Friday, February 10, 2017 18:46 - CONCLUSION: Occlusive thrombus in the cephalic and basilic veins. Benjamin Person MD Lung Scan-V Nuclear Medicine 02/10/17 0000 Signed Impressions: Service Date/Time: Friday, February 10, 2017 22:17 - CONCLUSION: Low probability pulmonary embolism. Candido Patton MD Head CT 02/10/17 Signed Impressions: Service Date/Time: Friday, February 10, 2017 23:51 - CONCLUSION: Negative noncontrast CT brain. Candido Patton MD Lumbar Puncture Fluoroscopy 02/01/17 Signed Impressions: Service Date/Time: January 09:35 - CONCLUSION: Uncomplicated fluoroscopically guided lumbar puncture. CSF was clear. Nabeel Peralta MD Head Magnetic Resonance Angiography 01/27/17 Signed Impressions: Service Date/Time: Friday, January 27, 2017 10:33 - CONCLUSION: No intracranial vascular abnormality is identified. There is no aneurysm visualized. Angelo Allen MD IVC Filter Placement X-Ray 01/25/17 Signed Impressions: Service Date/Time: January 10:29 - CONCLUSION: Uncomplicated inferior vena cava filter placement as above. Yung Fowler MD Thoracic Spine MRI 01/24/17 Signed Impressions: Service Date/Time: Tuesday, January 24, 2017 22:29 - CONCLUSION: 1. Mild degenerative spondylosis most prominently at T11-L1 with slight effacement of the anterior thecal sac and left lateral recess. No significant neural foraminal stenosis. 2. No acute fracture. Juan Bhakta MD Lumbar Spine MRI 01/23/17 Signed Impressions: Service Date/Time: Monday, January 23, 2017 17:01 - CONCLUSION: 1. At L4-5 is a broad-based disc protrusion with severe central canal and lateral recess stenosis and flattening of the exiting right L4 nerve root. 2. L5-S1 there is a disc protrusion and moderate stenosis with flattening of the exiting L5 nerve roots bilaterally. 3. At L3-4 there is a moderate to severe central stenosis and lateral recess stenosis with mild foraminal stenosis. 4. No acute fracture or spondylolisthesis. Trace Holloway MD Lower Extremity Ultrasound 01/23/17 Signed Impressions: Service Date/Time: Monday, January 23, 2017 09:53 - CONCLUSION: Bilateral focal lower extremity DVT involving the posterior tibial veins. Angelo Garrido MD Cervical Spine MRI 01/23/17 Signed Impressions: Service Date/Time: Monday, January 23, 2017 17:01 - CONCLUSION: 1. Multilevel cervical spine degenerative changes as above. 2. Mild degrees of spinal stenosis at C3/C4-C6/C7. No cord compression or cord signal abnormality. 3. Age indeterminate left paracentral/foraminal disc protrusion at C6/C7. 4. Multilevel foraminal stenosis, most severe on the left at C6/C7. Please see individual levels above. 5. No fracture or subluxation of the cervical spine. Angelo Garrido MD Brain MRI 01/23/17 0000 Signed Impressions: Service Date/Time: Monday, January 23, 2017 17:01 - CONCLUSION: 1. No acute stroke or other acute intracranial abnormality demonstrated. 2. Moderate severity chronic white matter changes, nonspecific but most likely related to chronic small vessel disease. 3. Few scattered tiny lacunar infarcts of the brainstem. 4. Given the findings are not entirely specific, clinical evaluation for possible multiple sclerosis recommended. Angelo Garrido MD Knee X-Ray 01/22/[id number] Signed Impressions: Service Date/Time: Sunday, January 22, 2017 21:17 - CONCLUSION: 1. Evidence of moderate to large joint effusion. 2. No acute fracture or malalignment. 3. Mild 3 compartment osteoarthritic change. Benjamin Person MD Hip and Pelvis X-Ray [id number]/22/[id number] Signed Impressions: Service Date/Time: Sunday, January 22, 2017 21:10 - CONCLUSION: 1. Mild to moderate degenerative change of both hips with no acute fracture or malalignment. There is flattening and remodeling of the right humeral head. Benjamin Person MD Physical Exam GENERAL: No distress. SKIN: Cool and dry. No generalized rash. Edematous in extremities. EYES: [place] conjunctiva. No petechia or hemorrhage. EARS, NOSE AND THROAT: Nose without bleeding or purulent nasal discharge. Dry oral mucosa NECK: Trach site ok. CARDIOVASCULAR: Regular rate and rhythm. Soft heart sounds. No murmurs RESPIRATORY: Coarse BS bilateral. ABDOMEN: Soft, not tender, distended, PEG site ok. No guarding rectal tube in place with liquid stool EXTREMITIES: No clubbing, cyanosis. 3+ Edema. Generalized anasarca. NEUROLOGICAL: sedated PSYCHIATRIC: unable to assess IMPRESSION Recurrent respiratory failure, ?plugging, PNA - last CXR better New Sepsis (fever and leucocytosis), temps up again x 1, and WBC still elevated Aspiration Pneumonia in health care setting. Mucus plugs with atelectasis. Leucocytosis, persistent, up and down ESBL in urine in recent past. 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 PNA, ?plugging/atelctasis - MDR, I to Zerbaxa, has been tolerating T-piece - likely effusion adding to his respiratory problems, on top of his plugging /secretions Large R retroperitoneal bleed, S/P multiple transfusions and S/P coiling of bleeders CT show still present but no larger. Anemia, due to bleed, retroperitoneal MSSA sepsis, due to suppurative thrombophlebitis LUE, S/P I and D and excision of portion of cephalic vein - S/P Rx Respiratory failure, has had several intubations - reintubated again 02/28, extubated 03/11 - reintubated again - S/P trach 03/14 Rx 7 days high dose solumedrol for transverse myelitis Wu LE DVT has IVC filter placed 01/25 - ?hypercoagulable state Chronic kidney disease, worsening creatinine. Now anuric. - shock and compression of ureter by hematoma Known DM, HTN Diarrhea, C.diff negative Renal insufficiency, worsening Vomiting. Risk for aspiration. RECOMMENDATION Continue Micafungin. Continue Meropenem and Daptomycin. Monitor WBC. Monitor progress Follow temps Weaning per [facility] [place] is extremely poor. DR. Edwards back tomorrow to follow for ID. Douglas Acevedo MD May 14, 2017 16:01
[2017-05-14] MEDS: MICAFUNGIN INJ 150 MG in SODIUM CHLORIDE 0.9% INJ 100 ML IV SCH (16:53)
[2017-05-14] MEDS: ATORVASTATIN 10 MG TAB PO SCH (22:02)
[2017-05-15] VITALS (18 sets, daily range): BP systolic 82–113; BP diastolic 45–57; PULSE 79–118; RESP 17–25; TEMP 97.2–97.7; O2SAT 92–100
[2017-05-15] MEDS ORDERED: PHENYLEPHRINE HCL 80 MG/D5W 492 ML ADMIX IV PRN ×2 (01:00)
[2017-05-15] MEDS ORDERED: NOREPINEPHRINE INJ 8 MG in SODIUM CHLOR 0.9% 250 ML INJ 242 ML IV PRN (01:00)
[2017-05-15] MEDS: PHENYLEPHRINE INJ 80 MG in SODIUM CHLORID 0.9% 500 ML INJ 492 ML IV PRN ×5 (01:33→23:59)
[2017-05-15] MEDS: NOREPINEPHRINE INJ 8 MG in SODIUM CHLOR 0.9% 250 ML INJ 242 ML IV PRN ×4 (01:35→18:27)
[2017-05-15] MEDS: oxyCODONE HCL ORAL CONC 5 MG/0.25 ML SYRINGE PO SCH ×6 (02:00→22:00)
[2017-05-15] MEDS: INSULIN NovoLIN REGULAR SUPPLEMENTAL SCALE SQ SCH ×6 (04:00→20:00)
[2017-05-15] MEDS: ALBUMIN 25% INJ 100 ML IV SCH ×2 (06:37→16:54)
[2017-05-15] MEDS: FUROSEMIDE 20 MG/2 ML VIAL IV PUSH SCH ×3 (06:38→21:52)
[2017-05-15] MEDS: CHLORHEXIDINE 0.12% (ORAL KIT) 15 ML CUP MT SCH ×2 (08:11→20:00)
[2017-05-15] MEDS: METOLAZONE 5 MG TAB PEG SCH ×2 (08:11→21:50)
[2017-05-15] MEDS: LACTOBACILLUS ACIDOPHILUS TAB PO SCH ×3 (08:11→18:31)
[2017-05-15] MEDS: CHOLESTYRAMINE 4 GM PACKET G-TUBE SCH ×2 (08:11→21:50)
[2017-05-15] MEDS: COLLAGENASE OINT 30 GM TUBE TOPICAL SCH (08:12)
[2017-05-15] MEDS: MEROPENEM INJ 500 MG in SODIUM CHLORIDE 0.9% INJ 100 ML IV SCH ×2 (08:12→21:51)
[2017-05-15] MEDS: LANSOPRAZOLE SOLUTAB 30 MG TAB NG SCH ×2 (08:12→21:50)
[2017-05-15] MEDS: QUEtiapine FUMARATE 25 MG TAB PO SCH (08:12)
[2017-05-15] MEDS: SODIUM CHLORIDE 0.9% FLUSH 10 ML FLUSH IV FLUSH SCH ×3 (08:12→21:52)
[2017-05-15] MEDS: TAMSULOSIN HCL 0.4 MG CAP PO SCH ×2 (09:00→21:00)
[2017-05-15 10:36] LABS: HEMATOCRIT 29.6 % (39.0-51.0); MEAN CELL VOLUME 85.7 FL (80.0-100.0); MEAN CORPUSCULAR HEMOGLOBIN 26.9 PG (27.0-34.0); MEAN CORPUSCULAR HGB CONC 31.3 % (32.0-36.0); PLATELET COUNT 222 TH/MM3 (150-450); RED BLOOD COUNT 3.45 MIL/MM3 (4.50-5.90); RED CELL DISTRIBUTION WIDTH 18.4 % (11.6-17.2); WHITE BLOOD COUNT 41.7 TH/MM3 (4.0-11.0)
[2017-05-15 10:38] LABS: HEMO FLAGS AUTO DIFF
[2017-05-15 10:44] LABS: ALT (GPT) 9 U/L (12-78); ANION GAP 19 MEQ/L (5-15); AST (GOT) 18 U/L (15-37); BICARBONATE 14.1 MEQ/L (21.0-32.0); BLOOD UREA NITROGEN 146 MG/DL (7-18); CHLORIDE 96 MEQ/L (98-107); GLOMERULAR FILTRATION RATE 15 ML/MIN (>89); POTASSIUM 3.4 MEQ/L (3.5-5.1); SODIUM (NA) 129 MEQ/L (136-145)
[2017-05-15 10:47] LABS: ALKALINE PHOSPHATASE 113 U/L (45-117); TOTAL BILIRUBIN ADULT 0.5 MG/DL (0.2-1.0)
[2017-05-15 11:18] LABS: BANDS 3 % (0-6); EOSINOPHILS 15 % (0-4); MYELOCYTES 3 % (0-0); NEUTROPHIL # MANUAL DIFF 31.3 TH/MM3 (1.8-7.7); POLYS (SEG NEUTROPHILS) 69 % (16-70); WBC DIFF SAMPLE 100
[2017-05-15 11:19] LABS: PLATELET ESTIMATE SMEAR NORMAL (NORMAL); PLATELET MORPHOLOGY NORMAL (NORMAL); SCAN/DIFF FINAL DIFF MANUAL
--- NOTE | 2017-05-15 11:36 | HHI.IDPN ---
Subjective Subjective Remarks Patient is a 62-year-old male, admitted to the hospital for evaluation of pain in his right wrist. He gave a history of falling about a week ago and apparently had immediate pain in the right wrist. He did not seek any medical attention initially because reportedly he was very busy. He eventually presented, and he was found to have a distal ulnar fracture on plain films. He also had some redness and swelling. Orthopedics saw the patient, and was being treated conservatively with the splint. During this hospitalization also he started complaining of generalized weakness but more so in his lower extremity than his upper extremity. He had swelling in both lower extremity which revealed evidence of DVT in the posterior tibial veins. Neurology had seen the patient and he underwent lumbar puncture which apparently was traumatic. Patient was therefore not given anticoagulation because of the traumatic LP, and he underwent placement of an IVC filter on January 25. Patient had another lumbar puncture on February 01. He was felt to have transverse myelitis, and he was given high-dose IV Solu-Medrol from January 27 to February 02. There was apparently some improvement in his weakness. The imaging studies done for his weakness showed some spinal stenosis, and neurosurgery was consult that and recommended that there was no surgical intervention to be done. Patient has been stabilizing, but last night apparently deteriorated, and he ended up getting intubated, and had significant hypotension requiring pressors. There was also an ultrasound done of his left upper extremity which showed DVT, and there was evidence of superior 2 thrombophlebitis. Vascular surgery was consult to it and he had IND on his left upper extremity. Patient has had some fevers since yesterday. 2 blood cultures were done yesterday and they're now reported as growing gram-positive cocci in [place] in clusters. He is currently sedated and intubated. He is on Levophed and vasopressin. A central line was placed as well as a femoral a line. He apparently had an IV in his left upper extremity and that was removed yesterday. Patient also has history of chronic kidney disease, and nephrology evaluated the patient. He was just being monitored for his renal insufficiency. Reconsulted 04/12 for low grade fever, leucocytosis, worsening CXR concern for new pneumonia. Notes reviewed Vent dependent Has developed worsening renal function and low UO Family refusing HD Temps ok Cultures reviewed WBC rising BP low, on pressors Antibiotics Current Medications Cubicin Meropenem Micafungin Medications (Trade) Dose Ordered Sig/Rosalia Route Start Time Stop Time Status Last Admin (NS Flush) 2 ml BID IV FLUSH 01/23/17 09:00 05/15/17 08:12 (Zofran Inj) 4 mg Q6H PRN IVP 01/23/17 00:30 05/10/17 20:52 (Dulcolax Supp) 10 mg DAILY PRN RECTAL 01/23/17 00:30 (Lipitor) 10 mg HS PO 01/24/17 21:00 Future hold 05/14/17 22:02 (Flomax) 0.4 mg Q12HR PO 02/17/17 15:00 Future hold 05/12/17 21:37 (Lactinex) 1 tab TID PO 02/19/17 13:00 05/15/17 08:11 (Peridex 0.12% Liq) 15 ml BID@08,20 MT 02/28/17 08:00 05/15/17 08:11 (NS Flush) UNSCH PRN IV FLUSH 03/01/17 13:00 (Heparin Inj) UNSCH PRN IV FLUSH 03/01/17 13:00 (NS Flush) DAILY IV FLUSH 03/04/17 09:00 05/15/17 08:12 (Prevacid Odt) 30 mg BID NG 03/07/17 21:00 05/15/17 08:12 (Tylenol 650 Mg/ 20 ml Liq) 650 mg Q6H PRN PO 03/09/17 10:15 04/30/17 12:01 (Epogen Inj) 10,000 units UNSCH PRN IV PUSH 03/17/17 11:30 03/22/17 10:52 (Nitroglycerin 2% Oint) 2 inch Q6H PRN TOPICAL 03/23/17 14:00 03/29/17 01:20 (Roxicodone Intensol Liq) 5 mg Q4H PO 04/01/17 18:00 05/15/17 06:37 (Xanax) 0.125 mg Q6H PRN PO 04/03/17 22:30 05/13/17 05:00 (Pill Splitter) 1 ea UNSCH PRN OTHER 04/03/17 22:45 (Levsin Liq) 0.125 mg Q4H PRN G-TUBE 04/06/17 15:00 04/12/17 10:09 (Questran 4 Gm Pkt) 4 gm Q12HR G-TUBE 04/08/17 21:00 05/15/17 08:11 (SEROquel) 25 mg DAILY PO 04/09/17 09:00 05/15/17 08:12 (Santyl Oint) 1 applic DAILY TOPICAL 04/10/17 09:00 05/15/17 08:12 (Duoneb Neb) 1 ampule Q2HR NEB PRN NEB 04/12/17 17:00 05/12/17 19:52 (Lopressor Inj) 2.5 mg Q6H PRN IV PUSH 04/23/17 01:15 Future Hold 04/23/17 09:36 Albumin Human 100 ml @ 60 mls/hr Q12H IV 04/30/17 17:00 05/15/17 06:37 (Lopressor) 25 mg Q12HR PO 05/02/17 10:45 Future Hold 05/05/17 08:15 Micafungin Sodium 150 mg/Sodium Chloride 100 ml @ 100 mls/hr Q24H IV 05/10/17 16:00 05/14/17 16:53 (Apresoline Inj) 10 mg Q6H PRN IV PUSH 05/11/17 09:30 (D50w (Vial) Inj) 50 ml UNSCH PRN IV PUSH 05/13/17 08:00 (Glucagon Inj) 1 mg UNSCH PRN OTHER 05/13/17 08:00 (NovoLIN R SUPPLEMENTAL SCALE) 1 Q4H SQ 05/13/17 08:00 05/15/17 08:10 (Lasix Inj) 40 mg Q8HR IV PUSH 05/13/17 14:00 05/15/17 06:38 (Brethine Inj) 1 mg UNSCH PRN SQ 05/13/17 18:00 Meropenem 500 mg/ Sodium Chloride 100 ml @ 200 mls/hr Q12H IV 05/13/17 20:00 05/15/17 08:12 Daptomycin 750 mg/ Sodium Chloride 100 ml @ 200 mls/hr Q48H IV 05/15/17 21:00 (Zaroxolyn) 5 mg BID PEG 05/14/17 11:30 05/15/17 08:11 Norepinephrine Bitartrate 8 mg/ Sodium Chloride 250 ml @ 3.75 mls/hr TITRATE PRN IV 05/15/17 01:00 05/15/17 07:19 Phenylephrine HCl 80 mg/Sodium Chloride 500 ml @ 15 mls/hr TITRATE PRN IV 05/15/17 01:15 05/15/17 07:16 Lines Central line - 04/27 Past Medical History Reviewed Allergies: Coded Allergies: levofloxacin (Verified Allergy, Severe, 01/22/17) Objective . Vital Signs Date Time Temp Pulse Resp B/P (MAP) Pulse Ox O2 Delivery O2 Flow Rate FiO2 05/15/17 10:00 85 05/15/17 08:57 93 35 05/15/17 08:00 90 05/15/17 08:00 97.4 91 18 111/56 (74) 92 05/15/17 07:19 94 103/54 05/15/17 07:16 96 103/54 05/15/17 06:00 92 05/15/17 04:00 97.5 118 18 99/50 (66) 93 05/15/17 04:00 118 05/15/17 04:00 35 05/15/17 03:58 93 35 05/15/17 02:00 82 05/15/17 01:35 83 69/35 05/15/17 01:33 78 69/35 05/15/17 00:00 84 05/15/17 00:00 97.6 84 18 82/45 (57) 100 05/15/17 00:00 35 05/14/17 23:53 94 35 05/14/17 22:00 80 05/14/17 20:32 79 153/67 05/14/17 20:09 92 35 05/14/17 20:00 35 05/14/17 20:00 81 05/14/17 20:00 97.1 81 19 83/44 (57) 91 05/14/17 19:56 82 81/41 05/14/17 18:00 86 05/14/17 17:52 99 35 05/14/17 16:00 35 05/14/17 16:00 92 05/14/17 16:00 97.4 92 17 104/54 (71) 95 05/14/17 14:53 86 98/53 05/14/17 14:18 98 35 05/14/17 14:00 84 05/14/17 12:00 85 05/14/17 12:00 97.6 85 18 95/51 (66) 98 05/14/17 12:00 35 05/15/17 05/15/17 05/16/17 15:00 23:00 07:00 Intake Total 450 ml Balance 450 ml IV Total 450 ml . Laboratory Tests Test 05/13/17 16:58 05/14/17 04:00 05/15/17 09:50 Hemoglobin 8.0 GM/DL 9.0 GM/DL 9.3 GM/DL Hematocrit 24.7 % 28.5 % 29.6 % White Blood Count 42.2 TH/MM3 41.7 TH/MM3 Red Blood Count 3.33 MIL/MM3 3.45 MIL/MM3 Mean Corpuscular Volume 85.7 FL 85.7 FL Mean Corpuscular Hemoglobin 27.1 PG 26.9 PG Mean Corpuscular Hemoglobin Concent 31.6 % 31.3 % Red Cell Distribution Width 17.7 % 18.4 % Platelet Count 237 TH/MM3 222 TH/MM3 Mean Platelet Volume 8.3 FL 8.4 FL Neutrophils (%) (Auto) 82.3 % Lymphocytes (%) (Auto) 3.6 % Monocytes (%) (Auto) 4.4 % Eosinophils (%) (Auto) 9.5 % Basophils (%) (Auto) 0.2 % Neutrophils # (Auto) 34.8 TH/MM3 Lymphocytes # (Auto) 1.5 TH/MM3 Monocytes # (Auto) 1.8 TH/MM3 Eosinophils # (Auto) 4.0 TH/MM3 Basophils # (Auto) 0.1 TH/MM3 CBC Comment AUTO DIFF AUTO DIFF Differential Total Cells Counted 100 100 Neutrophils % (Manual) 74 % 69 % Band Neutrophils % 6 % 3 % Lymphocytes % 5 % 8 % Monocytes % 5 % 2 % Eosinophils % 9 % 15 % Neutrophils # (Manual) 34.2 TH/MM3 31.3 TH/MM3 Metamyelocytes 1 % Differential Comment FINAL DIFF MANUAL FINAL DIFF MANUAL Platelet Estimate NORMAL NORMAL Platelet Morphology Comment NORMAL NORMAL Ovalocytes 1+ Myelocytes 3 % Basophilic Stippling FAINT Laboratory Tests Test 05/14/17 04:00 05/15/17 09:50 Blood Urea Nitrogen 152 MG/DL 146 MG/DL Creatinine 4.05 MG/DL 4.15 MG/DL Random Glucose 213 MG/DL 240 MG/DL Calcium Level 7.5 MG/DL 7.7 MG/DL Sodium Level 130 MEQ/L 129 MEQ/L Potassium Level 3.5 MEQ/L 3.4 MEQ/L Chloride Level 96 MEQ/L 96 MEQ/L Carbon Dioxide Level 15.9 MEQ/L 14.1 MEQ/L Anion Gap 18 MEQ/L 19 MEQ/L Estimat Glomerular Filtration Rate 15 ML/MIN 15 ML/MIN Total Protein 5.4 GM/DL Albumin 2.8 GM/DL Alkaline Phosphatase 113 U/L Aspartate Amino Transf (AST/SGOT) 18 U/L Alanine Aminotransferase (ALT/SGPT) 9 U/L Total Bilirubin 0.5 MG/DL Microbiology Date/Time Source Procedure Growth Status 05/13/17 21:09 Blood Peripheral Aerobic Blood Culture - Preliminary Staph Sp Coagulase Negative Resulted 05/13/17 21:09 Blood Peripheral Anaerobic Blood Culture - Preliminary NO GROWTH IN 2 DAYS Resulted 05/13/17 18:35 Blood Peripheral Aerobic Blood Culture - Preliminary NO GROWTH IN 2 DAYS Resulted 05/13/17 18:35 Blood Peripheral Anaerobic Blood Culture - Preliminary NO GROWTH IN 2 DAYS Resulted Imaging Chest X-Ray 05/10/17 0000 Signed Impressions: Service Date/Time: April 08:58 - CONCLUSION: Pulmonary vascular congestion remains. Duy Genao MD Abdomen/Pelvis CT 05/10/17 0000 Signed Impressions: Service Date/Time: April 15:38 - CONCLUSION: 1. Retroperitoneal hematoma is slightly larger within its inferior portion relative to the prior exam. No acute hemorrhage seen to suggest recent rebleed. No findings to suggest interval infection. 2. Bilateral pleural effusions. These are larger than the prior study. 3. Small volume free fluid within the belly. Candido Mendoza Jr., MD Thoracentesis 04/13/17 1054 Signed Impressions: Service Date/Time: Thursday, April 13, 2017 15:26 - CONCLUSION: Uncomplicated CT-guided right thoracentesis. Candido Mendoza Jr., MD Chest CT 04/12/17 1558 Signed Impressions: Service Date/Time: March 17:51 - CONCLUSION: 1. Slight increase in size of bilateral effusions and basilar atelectasis, left greater than right compared with February 27. Tracheostomy in good position. Trace Holloway MD Renal Ultrasound 04/02/17 0000 Signed Impressions: Service Date/Time: Sunday, April 02, 2017 16:59 - CONCLUSION: Limited exam with the left kidney being unable to be evaluated in the bladder not distended. There do appear to be multiple shadowing stones at the right kidney without hydronephrosis. Angelo Manzo MD Wrist X-Ray 03/27/17 0000 Signed Impressions: Service Date/Time: Monday, March 27, 2017 13:21 - CONCLUSION: 1. No acute fracture is identified. A portion of the previously documented distal ulna fracture remains visualized. 2. 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 Angelo Allen MD Aortography 02/28/17 0000 Signed Impressions: Service Date/Time: Tuesday, February 28, 2017 08:01 - CONCLUSION: 1. Active hemorrhage from distal right lateral sacral and iliolumbar branches successfully coil and Gelfoam embolized, as above. Juan Bhakta MD Abdomen X-Ray 02/26/17 0000 Signed Impressions: Service Date/Time: Sunday, February 26, 2017 14:52 - CONCLUSION: 1. Nonobstructive bowel gas pattern. Juan Bhakta MD Upper Extremity Ultrasound 02/10/17 0000 Signed Impressions: Service Date/Time: Friday, February 10, 2017 18:46 - CONCLUSION: Occlusive thrombus in the cephalic and basilic veins. Benjamin Person MD Lung Scan- Nuclear Medicine 02/10/17 0000 Signed Impressions: Service Date/Time: Friday, February 10, 2017 22:17 - CONCLUSION: Low probability pulmonary embolism. Candido Patton MD Head CT 02/10/17 0000 Signed Impressions: Service Date/Time: Friday, February 10, 2017 23:51 - CONCLUSION: Negative noncontrast CT brain. Candido Patton MD Lumbar Puncture Fluoroscopy 02/01/17 0000 Signed Impressions: Service Date/Time: January 09:35 - CONCLUSION: Uncomplicated fluoroscopically guided lumbar puncture. CSF was clear. Nabeel Peralta MD Head Magnetic Resonance Angiography 01/27/17 0000 Signed Impressions: Service Date/Time: Friday, January 27, 2017 10:33 - CONCLUSION: No intracranial vascular abnormality is identified. There is no aneurysm visualized. Angelo Allen MD IVC Filter Placement X-Ray 01/25/17 Signed Impressions: Service Date/Time: January 10:29 - CONCLUSION: Uncomplicated inferior vena cava filter placement as above. Yung Fowler MD Thoracic Spine MRI 01/24/17 Signed Impressions: Service Date/Time: Tuesday, January 24, 2017 22:29 - CONCLUSION: 1. Mild degenerative spondylosis most prominently at T11-L1 with slight effacement of the anterior thecal sac and left lateral recess. No significant neural foraminal stenosis. 2. No acute fracture. Juan Bhakta MD Lumbar Spine MRI 01/23/17 Signed Impressions: Service Date/Time: Monday, January 23, 2017 17:01 - CONCLUSION: 1. At L4-5 is a broad-based disc protrusion with severe central canal and lateral recess stenosis and flattening of the exiting right L4 nerve root. 2. L5-S1 there is a disc protrusion and moderate stenosis with flattening of the exiting L5 nerve roots bilaterally. 3. At L3-4 there is a moderate to severe central stenosis and lateral recess stenosis with mild foraminal stenosis. 4. No acute fracture or spondylolisthesis. Trace Holloway MD Lower Extremity Ultrasound 01/23/17 Signed Impressions: Service Date/Time: Monday, January 23, 2017 09:53 - CONCLUSION: Bilateral focal lower extremity DVT involving the posterior tibial veins. Angelo Garrido MD Cervical Spine MRI 01/23/17 Signed Impressions: Service Date/Time: Monday, January 23, 2017 17:01 - CONCLUSION: 1. Multilevel cervical spine degenerative changes as above. 2. Mild degrees of spinal stenosis at C3/C4-C6/C7. No cord compression or cord signal abnormality. 3. Age indeterminate left paracentral/foraminal disc protrusion at C6/C7. 4. Multilevel foraminal stenosis, most severe on the left at C6/C7. Please see individual levels above. 5. No fracture or subluxation of the cervical spine. Angelo Garrido MD Brain MRI 01/23/17 Signed Impressions: Service Date/Time: Monday, January 23, 2017 17:01 - CONCLUSION: 1. No acute stroke or other acute intracranial abnormality demonstrated. 2. Moderate severity chronic white matter changes, nonspecific but most likely related to chronic small vessel disease. 3. Few scattered tiny lacunar infarcts of the brainstem. 4. Given the findings are not entirely specific, clinical evaluation for possible multiple sclerosis recommended. Angelo Garrido MD Knee X-Ray [id number]/22/[id number] Signed Impressions: Service Date/Time: Sunday, January 22, 2017 21:17 - CONCLUSION: 1. Evidence of moderate to large joint effusion. 2. No acute fracture or malalignment. 3. Mild 3 compartment osteoarthritic change. Benjamin Person MD Hip and Pelvis X-Ray [id number]/22/[id number] Signed Impressions: Service Date/Time: Sunday, January 22, 2017 21:10 - CONCLUSION: 1. Mild to moderate degenerative change of both hips with no acute fracture or malalignment. There is flattening and remodeling of the right humeral head. Benjamin Person MD Physical Exam GENERAL: Ill appearing SKIN: Cool and dry. No generalized rash. Edematous in extremities. Anasarca + erythematous skin noted Stage IV sacral decub, wound bed is mostly necrotic with minimal bleeding. Also has multiple weeping wounds on his extremities EYES: [place] conjunctiva. No petechia or hemorrhage. EARS, NOSE AND THROAT: Nose without bleeding or purulent nasal discharge. Dry oral mucosa NECK: Trach site ok. CARDIOVASCULAR: Regular rate and rhythm. Soft heart sounds. No murmurs RESPIRATORY: Coarse BS bilaterally, decreased at bases. ABDOMEN: Soft, not tender, distended, PEG site ok. No guarding No hepatosplenomegaly incontinent of liquid stool EXTREMITIES: No clubbing, cyanosis. Edema 4+. Dressing on R leg wound with lots of drainage. Generalized anasarca. NEUROLOGICAL: sedated PSYCHIATRIC: unable to assess LINE: Lines with no evidence of infection Assessment & Plan Remarks IMPRESSION Recurrent respiratory failure, ?plugging, PNA - last CXR better New Sepsis (fever and leucocytosis), temps up again x 1, and WBC still elevated Aspiration Pneumonia in health care setting. Mucus plugs with atelectasis. Leucocytosis, persistent, up and down ESBL in urine in recent past. 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 PNA, ?plugging/atelctasis - MDR, I to Zerbaxa, has been tolerating T-piece - likely effusion adding to his respiratory problems, on top of his plugging /secretions Large R retroperitoneal bleed, S/P multiple transfusions and S/P coiling of bleeders Anemia, due to bleed, retroperitoneal MSSA sepsis, due to suppurative thrombophlebitis LUE, S/P I and D and excision of portion of cephalic vein - S/P Rx Respiratory failure, has had several intubations - reintubated again 02/28, extubated 03/11 - reintubated again - S/P trach 03/14 Rx 7 days high dose solumedrol for transverse myelitis Wu LE DVT has IVC filter placed 01/25 - ?hypercoagulable state Chronic kidney disease, worsening creatinine - shock and compression of ureter by hematoma Known DM, HTN Diarrhea, C.diff negative Renal insufficiency, worsening New sepsis New ARF, marked fluid oveload - familyrefused HD unlikely to survive w/o renla replacement therapy Prognosis is quite poor RECOMMENDATION Continue micafungin Continue Cubicin Continue meropenm He continues to deteriorate, overall prognosis very poor Son is refusing HD D/W Irene Vogel MD May 15, 2017 11:35
--- NOTE | 2017-05-15 14:27 | HHI.HCPN ---
Reason for visit a. To assist with evaluation and management of symptoms including: shortness of breath, pain, debility. b. To assist medical decision maker(s) with: better understanding of current medical conditions; weighing benefits/burdens of medical treatment options; making medical treatment decisions. Subjective/Interval History Patient seen and examined in ICU. No family at bedside. Briefly opening eyes to verbal stimuli, not communicating. ill appearing, lethargic. Clinical condition complicated by septic shock, patient currently on 2 vasopressors. Persistent leukocytosis, infectious disease following. Renal function has continued to worsen, BUN/creatinine 146/4.15. Patient's family declining hemodialysis. Patient on ventilator support via tracheostomy, persistent VDRF. Blood culture 05/13 positive for staph coagulase negative. Patient remains afebrile, currently 35% FiO2, oxygen saturation in the mid 90s. Telephone conversation with patient's son Davie. Medical update provided. Discussed patient's progressive decline and acute complications. Reviewed overall poor prognosis. Son receptive to meeting in-person with palliative care this afternoon at 5 PM. Palliative care to follow-up. Comfort-directed care will be introduced. 17:43. Met with patient's son Davie Kerr. Reviewed patient's past medical history, events leading to this hospitalization, clinical course to include multiple complications, current medical management. Reviewed poor prognosis given multiple complications to include persistent respiratory failure requiring intubation and mechanical ventilation x 3 status post tracheostomy, multiple infections, sepsis, kidney failure. Reviewed continuation of current aggressive management versus compassionate withdrawal life support given overall poor prognosis. Patient's son considering transitioning patient to comfort-directed care/withdrawal life support. Anticipatory guidance provided. Son to follow-up with palliative care tomorrow 05/16/17. Case discussed with Dr. Puente and bedside RN Jelena. . Family/friend interactions See interval note. . Advance Directives Living Will: Never completed Health Care Surrogate: Never completed Durable Power of Construction Worker: Never completed Advance Directive Specifics Health Care Surrogate(s): Healthcare proxys- Ana Kerr - ; Haydee Kerr- -cell -home -Opted out though he wants to be updated on patient`s medical status. . Documented care wishes: No known documented care wishes have been completed. . Objective Vital Signs Date Time Temp Pulse Resp B/P (MAP) Pulse Ox O2 Delivery O2 Flow Rate FiO2 05/15/17 13:33 83 98/53 05/15/17 12:43 82 113/55 05/15/17 12:29 94 35 05/15/17 12:00 97.7 86 18 113/55 (74) 94 05/15/17 12:00 86 05/15/17 10:00 85 05/15/17 08:57 93 35 05/15/17 08:00 90 05/15/17 08:00 97.4 91 18 111/56 (74) 92 05/15/17 07:19 94 103/54 05/15/17 07:16 96 103/54 05/15/17 06:00 92 05/15/17 04:00 97.5 118 18 99/50 (66) 93 05/15/17 04:00 118 05/15/17 04:00 35 05/15/17 03:58 93 35 05/15/17 02:00 82 05/15/17 01:35 83 69/35 05/15/17 01:33 78 69/35 05/15/17 00:00 84 05/15/17 00:00 97.6 84 18 82/45 (57) 100 05/15/17 00:00 35 05/14/17 23:53 94 35 05/14/17 22:00 80 05/14/17 20:32 79 153/67 05/14/17 20:09 92 35 05/14/17 20:00 35 05/14/17 20:00 81 05/14/17 20:00 97.1 81 19 83/44 (57) 91 05/14/17 19:56 82 81/41 05/14/17 18:00 86 05/14/17 17:52 99 35 05/14/17 16:00 35 05/14/17 16:00 92 05/14/17 16:00 97.4 92 17 104/54 (71) 95 05/14/17 14:53 86 98/53 05/14/17 14:18 98 35 Intake & Output 05/15/17 05/15/17 07:00 19:00 Intake Total 1782 ml 450 ml Output Total 100 ml Balance 1682 ml 450 ml IV Total 1270 ml 450 ml Tube Feeding 232 ml Albumin 100 ml Other 180 ml Output Urine Total 25 ml Stool Total 75 ml Physical Exam CONSTITUTIONAL/GENERAL: This is an ill-looking patient. Resting in bed in no acute distress. TUBES/LINES/DRAINS: PEG tube, Tracheostomy on a mechanical ventilator, PIVs, palmer catheter. SKIN: No jaundice. Ecchymoses on upper extremities. Sacral pressure wound and L heel pressure injury per EMR. Wound to anterior neck - tracheostomy insertion area with a foam dressing. Not diaphoretic. ENT: Trached. Nose without bleeding or purulent drainage. Moist oral mucosa. NECK: Trachea midline. #8 Tracheostomy midline- patient on mechanical ventilation. CARDIOVASCULAR: Regular rate and rhythm without murmurs, gallops, or rubs. No JVD. RESPIRATORY/CHEST: Symmetrical, rhonchi and wheezy to auscultation. Small amount of yellow secretions around trach. Patient on mechanical ventilation GASTROINTESTINAL: Abdomen large, obese, round, tender to palpation. Bowel sounds hypoactive. GENITOURINARY: Without palpable bladder distension. catheter in place. Massive scrotal edema. MUSCULOSKELETAL: Gout tophi to fingers, knees, elbows and both ankles. Edema + 3 noted to all 4 extremities. NEUROLOGICAL: Sleepy, briefly opening eyes to verbal stimuli. PSYCHIATRIC: Appears calm. . Diagnostic Tests Laboratory Laboratory Tests Test 05/13/17 04:43 05/13/17 16:58 05/14/17 04:00 05/15/17 09:50 White Blood Count 16.8 TH/MM3 (4.0-11.0) 42.2 TH/MM3 (4.0-11.0) 41.7 TH/MM3 (4.0-11.0) Red Blood Count 3.08 MIL/MM3 (4.50-5.90) 3.33 MIL/MM3 (4.50-5.90) 3.45 MIL/MM3 (4.50-5.90) Hemoglobin 8.4 GM/DL (13.0-17.0) 8.0 GM/DL (13.0-17.0) 9.0 GM/DL (13.0-17.0) 9.3 GM/DL (13.0-17.0) Hematocrit 25.8 % (39.0-51.0) 24.7 % (39.0-51.0) 28.5 % (39.0-51.0) 29.6 % (39.0-51.0) Mean Corpuscular Volume 83.6 FL (80.0-100.0) 85.7 FL (80.0-100.0) 85.7 FL (80.0-100.0) Mean Corpuscular Hemoglobin 27.1 PG (27.0-34.0) 27.1 PG (27.0-34.0) 26.9 PG (27.0-34.0) Mean Corpuscular Hemoglobin Concent 32.5 % (32.0-36.0) 31.6 % (32.0-36.0) 31.3 % (32.0-36.0) Red Cell Distribution Width 17.5 % (11.6-17.2) 17.7 % (11.6-17.2) 18.4 % (11.6-17.2) Platelet Count 216 TH/MM3 (150-450) 237 TH/MM3 (150-450) 222 TH/MM3 (150-450) Mean Platelet Volume 7.8 FL (7.0-11.0) 8.3 FL (7.0-11.0) 8.4 FL (7.0-11.0) Neutrophils (%) (Auto) 81.8 % (16.0-70.0) 82.3 % (16.0-70.0) Lymphocytes (%) (Auto) 5.1 % (9.0-44.0) 3.6 % (9.0-44.0) Monocytes (%) (Auto) 3.4 % (0.0-8.0) 4.4 % (0.0-8.0) Eosinophils (%) (Auto) 9.5 % (0.0-4.0) 9.5 % (0.0-4.0) Basophils (%) (Auto) 0.2 % (0.0-2.0) 0.2 % (0.0-2.0) Neutrophils # (Auto) 13.7 TH/MM3 (1.8-7.7) 34.8 TH/MM3 (1.8-7.7) Lymphocytes # (Auto) 0.8 TH/MM3 (1.0-4.8) 1.5 TH/MM3 (1.0-4.8) Monocytes # (Auto) 0.6 TH/MM3 (0-0.9) 1.8 TH/MM3 (0-0.9) Eosinophils # (Auto) 1.6 TH/MM3 (0-0.4) 4.0 TH/MM3 (0-0.4) Basophils # (Auto) 0.0 TH/MM3 (0-0.2) 0.1 TH/MM3 (0-0.2) CBC Comment AUTO DIFF AUTO DIFF AUTO DIFF Differential Total Cells Counted 100 100 100 Neutrophils % (Manual) 80 % (16-70) 74 % (16-70) 69 % (16-70) Band Neutrophils % 2 % (0-6) 6 % (0-6) 3 % (0-6) Lymphocytes % 5 % (9-44) 5 % (9-44) 8 % (9-44) Monocytes % 2 % (0-8) 5 % (0-8) 2 % (0-8) Eosinophils % 10 % (0-4) 9 % (0-4) 15 % (0-4) Neutrophils # (Manual) 13.9 TH/MM3 (1.8-7.7) 34.2 TH/MM3 (1.8-7.7) 31.3 TH/MM3 (1.8-7.7) Myelocytes 1 % (0-0) 3 % (0-0) Differential Comment FINAL DIFF MANUAL FINAL DIFF MANUAL FINAL DIFF MANUAL Platelet Estimate NORMAL (NORMAL) NORMAL (NORMAL) NORMAL (NORMAL) Platelet Morphology Comment NORMAL (NORMAL) NORMAL (NORMAL) NORMAL (NORMAL) Ovalocytes 1+ (NORMAL) 1+ (NORMAL) Blood Urea Nitrogen 165 MG/DL (7-18) 152 MG/DL (7-18) 146 MG/DL (7-18) Creatinine 3.79 MG/DL (0.60-1.30) 4.05 MG/DL (0.60-1.30) 4.15 MG/DL (0.60-1.30) Random Glucose 89 MG/DL (74-106) 213 MG/DL (74-106) 240 MG/DL (74-106) Calcium Level 7.5 MG/DL (8.5-10.1) 7.5 MG/DL (8.5-10.1) 7.7 MG/DL (8.5-10.1) Sodium Level 132 MEQ/L (136-145) 130 MEQ/L (136-145) 129 MEQ/L (136-145) Potassium Level 3.6 MEQ/L (3.5-5.1) 3.5 MEQ/L (3.5-5.1) 3.4 MEQ/L (3.5-5.1) Chloride Level 99 MEQ/L (98-107) 96 MEQ/L (98-107) 96 MEQ/L (98-107) Carbon Dioxide Level 15.4 MEQ/L (21.0-32.0) 15.9 MEQ/L (21.0-32.0) 14.1 MEQ/L (21.0-32.0) Anion Gap 18 MEQ/L (5-15) 18 MEQ/L (5-15) 19 MEQ/L (5-15) Metamyelocytes 1 % (0-1) Estimat Glomerular Filtration Rate 15 ML/MIN (>89) 15 ML/MIN (>89) Basophilic Stippling FAINT (NORMAL) Total Protein 5.4 GM/DL (6.4-8.2) Albumin 2.8 GM/DL (3.4-5.0) Alkaline Phosphatase 113 U/L (45-117) Aspartate Amino Transf (AST/SGOT) 18 U/L (15-37) Alanine Aminotransferase (ALT/SGPT) 9 U/L (12-78) Total Bilirubin 0.5 MG/DL (0.2-1.0) Result Diagram: 05/15/17 0950 05/15/17 0950 Microbiology Microbiology Date/Time Source Procedure Growth Status 05/13/17 21:09 Blood Peripheral Aerobic Blood Culture - Preliminary Staph Sp Coagulase Negative Resulted 05/13/17 21:09 Blood Peripheral Anaerobic Blood Culture - Preliminary NO GROWTH IN 2 DAYS Resulted 05/13/17 18:35 Blood Peripheral Aerobic Blood Culture - Preliminary NO GROWTH IN 2 DAYS Resulted 05/13/17 18:35 Blood Peripheral Anaerobic Blood Culture - Preliminary NO GROWTH IN 2 DAYS Resulted Procedures 01/25/2017- Retrievable IVC Filter placement 01/26/17-lumbar puncture with fluoroscopy-by interventional radiology 02/01/17- lumbar puncture fluoroscopy by interventional radiology 02/10/17- Endotracheal Intubation 02/10/17-left IJ central venous line placed 02/10/17-left femoral arterial line placed 02/11/17-Diagnostic and therapeutic bronchoscopy with bronchoalveolar lavage 02/11/17-Left upper extremity incision and debridement with excision of septic cephalic vein 02/13/17- Extubated 02/20/17- endotracheal intubation 02/20/17- Left subclavian central line placement 02/20/17-Right radial A-line placement 02/22/17-EGD/colonoscopy 02/28/17-right radial a line 02/28/17- Endotracheal intubation 02/28/17- right sided introducer catheter placement 02/28/17- Right IJ central line placement 02/28/17-Right chest tube placement 02/28/17- Embolization of inferior and superior sacral branches of right internal iliac artery 03/01/17- Hemodialysis access catheter 03/03/17-Right IJ central line placement 03/11/17-Extubated 03/13/17- Endotracheal intubation 03/14/17-Tracheostomy placement 03/15/17-PEG tube placement 04/13/17-thoracentesis right 600 cc removed 04/13/17-Tracheostomy up-sized to #8 Shiley 04/26/17 Central line placement . Assessment and Plan Disease Oriented Problem List: (1) Acute respiratory failure (2) Septic shock (3) Aspiration pneumonia (4) Acute renal failure (5) CKD (chronic kidney disease) stage 3, GFR 30-59 ml/min (6) Cardiomyopathy (7) DVT of lower extremity, bilateral (8) Thrombophlebitis arm (9) Diabetes mellitus (10) Gout (11) HTN (hypertension) (12) Hyperlipidemia Symptom Scale: (1) Shortness of breath 0-10 Scale: Unable to quantify Comment: Trach, Back on mechanical ventilation 04/26/17 . . (2) Debility 0-10 Scale: Unable to quantify Comment: Progressive. . (3) Pain 0-10 Scale: Unable to quantify Comment: History of falls, gout, arthritis, and currently bedbound. . Pertinent Non-Medical Issues Psychosocial:Patient was born and raised in [place], [place]. Patient was once for 20 years, now and has 2 adult sons. 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 He recently resigned due to failing health. Spiritual: No buddhism affiliation Legal: Per [place] statutes, in the absence of written advanced directives healthcare proxy decision making falls to the patient's 2 adult children. Patient's son (Davie) lives locally and wishes to participate in the role of the healthcare proxy decision maker. Palliative care has attempted to contact Arnel, has not call back. Patient`s sister Deb and patients brother verbalized that they have been updating Arnel on patient`s medical status. Ethical issues impacting care: No known ethical issues impacting care at this time. . Important Contacts Son-Davie Kerr - Son-Arnel Kerr- -cell -home Sister-Deb Curry . Prognosis Mr Kerr is a 62 years old male with a past medical history of hypertension, asthma, diabetes, hyperlipidemia, chronic kidney disease and gout. Patient presented to the ED on 01/22/17 complaining of bilateral knee and right arm pain after a mechanical fall 4 or 5 days prior to coming to the ER. Clinical course complicated with increased weakness leading to numerous diagnostic work ups for possible transverse myelitis, DVTs, retroperitoneal hematoma, aspiration pneumonia, intubation x 4 times, septic and hemorrhagic shock requiring support with pressors and multiple pRBC, FFP transfusions as well as platelets and cryo , renal failure requiring hemodialysis and sacral wound Given ongoing comorbidities, and prolonged hospitalization, patient remains at risk for further complications, deterioration and decline. Code Status: Alternative Code (Intubation only ) Plan * Legal decision maker: Patient unable to participating in medical decision- making secondary to clinical condition, unclear if he will regain capacity. According to [place] statutes, health care proxy decision making falls to majority of adult children, he as 2 sons Davie and Arnel. Arnel has opted out of decision making; therefore, HCP is son Davie Kerr who has accepted this role. * CODE STATUS: Intubation Only -NO cardiac code. * Goals: 05/15/17: Pt's son Davie Kerr acting as healthcare proxy decision maker is considering comfort-directed care/compassionate withdrawal life support given patient's worsening clinical condition and very poor prognosis for survival. Palliative care to follow-up with family 05/16/17. SYMPTOMS: * Shortness of breath: Multifactorial. Patient has had aspiration pneumonia. Patient has been intubated 4 times this hospitalization. Patient has a tracheostomy. On duonebs. Patient is also on Hydrocortisone 50mg q 6 hours. Watch Commander following. Trach up-sized to #8. Patient placed back on mechanical ventilation, was hypoxic 04/26/17. * Pain: Patient presented initially complaining of pain to right wrist and bilateral knees after a mechanical fall. Patient has a history of gout, arthritis, multiple falls and is currently bedbound. Patient on Oxycodone 5mg q 4 hours ATC. Patient on Hydrocortisone. * Debility: Progressive. Patient has had decline in his health for the past 4 months, including progressively increased weakness and difficulty ambulating and prolonged hospitalization with multiple setbacks. Patient remains at high risk for further physical deconditioning and debility. * Case discussed with Dr. Puente and bedside RN. * Palliative care will continue to follow the patient during hospital course as condition evolves, to assist patient/decision-maker with understanding of their medical conditions, weighing benefits/burdens of treatment options, for clarification of goals of treatment. Additionally will assist with any symptoms of palliative concern. . Time Spent Total Floor Time (mins): 44 (Time to include review medical records, physical exam, goals of care discussion with patient's son scholastic aptitude test grader, case discussion with Dr. Puente, Dr. Nino and bedside RN.) >50% Counseling/Coord of Care: Yes Attestation To help prompt me to consider important information that might be impacting today's encounter and assessment, information from prior notes written by myself or my colleagues may have been "brought forward" into today's note. My signature on this note, however, is an attestation that I personally performed the exam, history, and/or decision-making noted today, and, unless otherwise indicated, the interactions with patient, family, and staff as well as the review of records all occurred today. I also attest that the listed assessment and stated plan reflect my best clinical judgment today based on the combination of historical information, prior notes, and today's exam/ interactions. When time spent is documented, it refers only to time spent today by the signer, or if indicated, combined time spent today by collaborating physician/nurse practitioner. Ira Padilla May 15, 2017 14:27
[2017-05-15] MEDS: MICAFUNGIN INJ 150 MG in SODIUM CHLORIDE 0.9% INJ 100 ML IV SCH (15:47)
--- NOTE | 2017-05-15 17:14 | HHI.NPPN ---
Subjective History of Present Illness 61-year-old with history of urinary stone patient again got unstable has recurrent bouts of ICU admission requiring ventilation and respiratory care started having scrotal swelling and acute renal failure again, he had mild hyperkalemia and this was treated I have been reconsulted again Additional Remarks Patient with trach on vent, remain unresponsive, clinically same. Review of Systems General Constitutional: Fatigue Objective Data Data 05/15/17 05/16/17 19:00 07:00 Intake Total 450 ml Balance 450 ml IV Total 450 ml Vital Signs Date Time Temp Pulse Resp B/P (MAP) Pulse Ox O2 Delivery O2 Flow Rate FiO2 05/15/17 16:25 95 35 05/15/17 16:00 97.3 85 17 109/57 (74) 97 05/15/17 16:00 85 05/15/17 14:00 83 05/15/17 13:33 83 98/53 05/15/17 12:43 82 113/55 05/15/17 12:29 94 35 05/15/17 12:00 97.7 86 18 113/55 (74) 94 05/15/17 12:00 86 05/15/17 10:00 85 05/15/17 08:57 93 35 05/15/17 08:00 90 05/15/17 08:00 97.4 91 18 111/56 (74) 92 05/15/17 07:19 94 103/54 05/15/17 07:16 96 103/54 05/15/17 06:00 92 05/15/17 04:00 97.5 118 18 99/50 (66) 93 05/15/17 04:00 118 05/15/17 04:00 35 05/15/17 03:58 93 35 05/15/17 02:00 82 05/15/17 01:35 83 69/35 05/15/17 01:33 78 69/35 05/15/17 00:00 84 05/15/17 00:00 97.6 84 18 82/45 (57) 100 05/15/17 00:00 35 05/14/17 23:53 94 35 05/14/17 22:00 80 05/14/17 20:32 79 153/67 05/14/17 20:09 92 35 05/14/17 20:00 35 05/14/17 20:00 81 05/14/17 20:00 97.1 81 19 83/44 (57) 91 05/14/17 19:56 82 81/41 05/14/17 18:00 86 05/14/17 17:52 99 35 -: 05/15/17 0950 05/15/17 0950 Physical Exam General Appearance: Pale, Anxious Eyes Eye Exam: Pupils Equal Throat Throat Exam: Oral Mucosa [place] & Moist Neck Neck Exam: Neck Supple Pulmonary Resp Exam: Clear Bilaterally Cardiology CV Exam: Normal Sinus Rhythm Gastrointestinal/Abdomen GI Exam: Non-Tender, Distended Genitourinary Exam: Flank Non-Tender (scrotal edema) Extremeties Extremities Exam: Moderate Edema, Pitting Edema Neurologic Neuro Exam: Obtunded Assessment/Plan Problem List: (1) Acute renal failure ICD Codes: N17.9 - Acute kidney failure, unspecified Status: Acute Plan: Patient with pneumonia as, sepsis, acute renal failure Had pneumonia, developed sepsis with ARF. 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 Patient had been on dialysis earlier in hospitalization non oliguric ATN from sepsis He has multiple infections and pneumonia. Patient has improvement in the BP. Creatinine continue to increase. Urine out put is low. Creatinine slowly increasing, K is now normal. Has worsening edema, The son does not want HD. Urine out put remain minimal despite Lasix and Metolazone. Palliative care on the case , has family meeting. I will see PRN if needed. (2) CKD (chronic kidney disease) stage 3, GFR 30-59 ml/min ICD Codes: N18.3 - Chronic kidney disease, stage 3 (moderate) Status: Chronic Plan: Ultrasound revealed chronic kidney disease there is no kidney stones (3) Diabetes ICD Codes: E11.9 - Type 2 diabetes mellitus without complications Plan: Continue to monitor (4) Distal end of ulna fracture, closed ICD Codes: S52.609A - Unspecified fracture of lower end of unspecified ulna, initial encounter for closed fracture Status: Acute Plan: Orthopedic is following Problem Qualifiers (1) Acute renal failure: Qualified Codes: N17.9 - Acute kidney failure, unspecified Aicha Leonard MD May 15, 2017 17:14
[2017-05-15] MEDS ORDERED: DAPTOmycin INJ 750 MG in SODIUM CHLORIDE 0.9% INJ 100 ML IV SCH (21:00)
[2017-05-15] MEDS: ATORVASTATIN 10 MG TAB PO SCH (21:50)
[2017-05-16] VITALS (18 sets, daily range): BP systolic 67–103; BP diastolic 39–53; PULSE 62–110; RESP 10–22; TEMP 96.1–97.8; O2SAT 93–98
[2017-05-16] MEDS: NOREPINEPHRINE INJ 8 MG in SODIUM CHLOR 0.9% 250 ML INJ 242 ML IV PRN ×3 (00:52→18:00)
[2017-05-16] MEDS: oxyCODONE HCL ORAL CONC 5 MG/0.25 ML SYRINGE PO SCH ×6 (02:00→21:46)
[2017-05-16] MEDS: INSULIN NovoLIN REGULAR SUPPLEMENTAL SCALE SQ SCH ×6 (04:00→20:00)
[2017-05-16] MEDS: FUROSEMIDE 20 MG/2 ML VIAL IV PUSH SCH ×3 (05:05→21:46)
[2017-05-16] MEDS: ALBUMIN 25% INJ 100 ML IV SCH ×2 (05:05→15:57)
[2017-05-16] MEDS: CHLORHEXIDINE 0.12% (ORAL KIT) 15 ML CUP MT SCH ×2 (08:55→20:00)
[2017-05-16] MEDS: MEROPENEM INJ 500 MG in SODIUM CHLORIDE 0.9% INJ 100 ML IV SCH ×2 (08:55→20:00)
[2017-05-16] MEDS: TAMSULOSIN HCL 0.4 MG CAP PO SCH ×2 (08:56→21:00)
[2017-05-16] MEDS: CHOLESTYRAMINE 4 GM PACKET G-TUBE SCH ×2 (08:56→21:00)
[2017-05-16] MEDS: LACTOBACILLUS ACIDOPHILUS TAB PO SCH ×3 (08:56→16:10)
[2017-05-16] MEDS: QUEtiapine FUMARATE 25 MG TAB PO SCH (08:56)
[2017-05-16] MEDS: METOLAZONE 5 MG TAB PEG SCH ×2 (08:56→21:00)
[2017-05-16] MEDS: LANSOPRAZOLE SOLUTAB 30 MG TAB NG SCH ×2 (08:57→21:00)
[2017-05-16] MEDS: COLLAGENASE OINT 30 GM TUBE TOPICAL SCH (08:57)
[2017-05-16] MEDS: SODIUM CHLORIDE 0.9% FLUSH 10 ML FLUSH IV FLUSH SCH ×3 (08:57→21:00)
--- NOTE | 2017-05-16 10:29 | HHI.CCPN ---
Subjective Remarks/Hospital Course Date of admission: 01/22 Date of critical care medicine consult 02/10 due to acute hypoxemic respiratory failure requiring emergent intubation 62-year-old male with a past medical history of hypertension, hyperlipidemia, diabetes mellitus, gout, uric acid kidney stones, kidney disease of unknown stage who originally presented to [facility] emergency department on 01/22 after a fall in which he sustained a right distal ulna fracture. He had been experiencing a gradual primarily lower extremity weakness as well as upper extremity weakness that was progressive. Neurology consult was obtained. MRI revealed no acute stroke. He had multifocal white matter changes. Tiny lacunar infarcts of the brainstem. Lumbar MRI report states L4-L5 disc protrusion with cetnral canal stenosis. Dr. Blackwell evaluated and states no cord compression on MRI C/T spine and recommended nonoperative management. Symptoms were felt to be consistent with transverse myelitis and he underwent Solumedrol 250 mg IV q6 hours 01/27-02/02. He also was found to have occlusive thrombus in the bilateral posterior tibial veins. Heparin was being avoided because he had traumatic lumbar puncture on 01/26 and 02/01. IVC filter was placed 01/25. He was undergoing physical therapy, reportedly making some improvements with plan to eventually discharged home with his son (max assist standing, and bed to chair per PT note). Apparently he had some vomiting the evening of 02/09 and additional vomiting on 02/10. He had a fever 102.8 on 02/09. Last recorded bowel movement was 02/03. Tonight he had acute onset of severe hypoxemia and respiratory distress. [facility] called and he was brought emergently to [facility] where his sats were 64% on 100% nonrebreather with mean arterial pressure 44. He was emergently intubated, CVL and art line placed. He is in septic shock. SUBJ: 02/11: Patient remains intubated sedated, critically ill. FiO2 reduced to 80% after increasing PEEP to 12. In severe septic shock Levophed at 16 mcg/m, vasopressin at 0.04 international units. D/W vascular surgery Dr. Enciso. He performed bedside Left upper extremity incision and debridement and excision of septic cephalic vein. 02/12: Remains intubated sedated profoundly septic, in shock on vasopressin and 7 mcg/min Levophed. FiO2 has improved to 45%, WBC count remains elevated with 20 ,000 white count significant left shift. Slight improvement in creatinine 2.9 urine output 750 ml 24 hours. 2-D echo shows LV ejection fraction 20-25%, no vegetation reported. Blood cultures 4 staph aureus. Wound culture pending 02/13: Remains critically ill but stable to improving. WBC count is down to 16, creatinine improving to 2.36. Off all pressors. Urine output also improving. 1.5L in 24 hours 02/14: Extubated 02/13. Tolerating well. WBC now down to 12.8. Creat improving 2.3 to 2. UO 3.4L. remains off all pressors. Was started on Precedex yesterday night for agitation, currently on 0.5 g per KG per hour. Chest x-ray shows left more than right air space disease 02/20/17 Re consult: 62-year-old male who was originally admitted for lower extremity weakness and found to have what was thought to be possible transverse myelitis. His hospital course his included a healthcare associated pneumonia, septic thrombophlebitis, DVT. He was most recently in the hospital floor where he had significant nausea and vomiting and diarrhea. His C. difficile test was recently negative. However, he has experienced worsening acute on chronic renal failure, hypotension, tachycardia, and severe hypoxemia. He did have a bout of vomiting earlier today, and his hospitalist attending suspects that he may have aspirated. He arrives by rapid response to the ICU with a nonrebreather in place in severe respiratory distress with SPO2 of 85%. I emergently intubate the patient, see separate procedure note for details. At this point the patient was hypotensive and tachycardic. He does have a history of an EF of 20%, however clinically he appears in florid septic shock. I placed central line and arterial line started vasopressors and gentle IV fluid resuscitation with 1 L of LR. Patient today was empirically broadened to vancomycin and Zosyn from his oxacillin which was initially treating MSSA bacteremia. He is recultured. Critical-care medicine is consulted to evaluate and manage his worsening multiorgan system failure and decompensated septic shock 02/21: Patient remains intubated sedated. Becomes anxious tachypnea on sedation lightening. Chest x-ray shows mild left lower lobe infiltrate. WBC count is slightly improved today from 23.2 t0 21. C Diff negative. UO adequate, creat slightly worsening. 1.57 today 02/22: Remains intubated sedated tolerated CPAP yesterday, plan is for EGD/ Colonscopy. WBC count back to normal. UO adequate. Creat stable 02/23: Tolerating CPAP trials following commands. Will do a spontaneous breathing trials. Status post EGD colonoscopy yesterday -Gastritis, esophagitis. Diverticulosis and multiple polyps. Urine output adequate but creatinine increasing to 1.7 with patient requiring multiple straight catheterization. We'll reinsert Sloan. 02/24: Breathing comfortably 24 hours after extubation. Protects airway well. 02/25: Excoriate bottom, will place rectal FMS. Start pureed diet. 02/26: Afebrile. Complaining of nausea and vomiting this afternoon. Increased stool output. Continue potassium replacement today. 02/27: 10 PM overnight, acutely hypotensive. Received 3 units PRBCs. Antibiotic coverage broadened to piperacillin/tazobactam, cortisol and 1 dose of vancomycin. Oxacillin drip currently on hold. Symptomatically, patient continues to vague abdominal pain/nausea vomiting which is unchanged for the past several days. Lipase elevated yesterday. Lactic acid normal. Troponin normal. Urinary retention after removal of Sloan. Straight catheter 1300. Cc 02/28: New diagnosis large retroperitoneal hematoma. Received 10 PRBC, 14 FFP, 2 platelets, 1 cryo-, 6 g calcium chloride, 2 is magnesium sulfate and 4 mg Bumex. CTA abdomen revealed possible arterial bleeds iliac, lumbar. Patient is currently on norepinephrine and epinephrine drips and possible need right nephrostomy tube placement due to large hematoma compressing ureter. Intra-abdominal bladder pressures are currently 13 03/01: Afebrile. Received 25 g albumin and 1 unit PRBCs overnight. Intra- abdominal bladder pressures currently 19. Currently on 3 micrograms per minute of norepinephrine. [id number] 1 out of 4 on 4 mics grams per kilogram per minute of cisatracurium. 03/02: Slightly hypothermic overnight. Hemoglobin appears to have stabilized. Troponin bump overnight likely secondary to demand ischemia from hypotension. Hemodynamically stable off all vasopressors. 03/03: Received 1 PRBCs overnight. 3 units currently. Off all vasopressors. Likely rebleeding. Stool is dark. 03/04: Remains unstable. Ventilator dependent. 03/05: afebrile. hgb stable. 03/06: bumex drip started overnight. good uop after bumex initiated. still grossly volume overloaded. Cr downtrending. more awake with transition to propofol. still too volume overloaded to tolerate extubation. hgb stable. 03/07: Afebrile. Tolerating tube feeds at goal with Nepro. Positive BM. On low-dose fentanyl and propofol drips. Potassium currently being replaced. 03/08: Eyes will open on ventilator. Afebrile. Tolerating tube feeding. Failed PSV trial yesterday due to apnea. 03/09: Following commands. Tmax 101. Tolerating tube feeding. One hour PSV trial yesterday. Currently tolerating well so far today 1.5 hours 03/10: Low-grade temperatures. Tolerating PSV trial 10 hours yesterday. Currently at 5/5 at 35%. We'll probably attempt extubation a.m. after hemodialysis. 03/11: Extubated currently in 4 L nasal cannula. Thick secretions thick clear with cough. Currently afebrile. Tolerating diet previously. 03/12: Sleepy this morning but arouses. Following commands. Refusing diet at the present time. On 2 L nasal cannula. 03/13: Patient reintubated last night for worsening respiratory status. Currently sedated on mechanical ventilation. Became hypotensive following intubation and is on Levophed 20 mics per minute. 03/14: Sedated, orally intubated on mech vent at the time of my evaluation this AM, subsequently underwent perc trach placement. Remains on levophed for pressor support. Transfused 1 unit PRBCs today. Persisten 03/15: Trach site clean, dry. CXR with bilateral basilar infiltrates. 03/16: Pulmonary congestion persists. Clinical condition not improving. Prognosis becoming increasingly bleak. 03/17: Glucose intolerance worse. No improvement in neurological function. 03/18: Remains on mechanical ventilation via tracheostomy. Off pressors now. Neurologic status remains poor. 03/19: Drowsy, encephalopathic, arousable. On mechanical ventilation via tracheostomy. Levemir increased for hyperglycemia today. Remains off pressors 03/20: More awake, moves both upper extremities. On mechanical ventilation via tracheostomy. Daily C Pap trials ongoing. 03/21: Awake and alert. On mechanical ventilation via tracheostomy. Opens and closes eyes on command. 03/22: Awake and alert. Tolerated T PIECE for 7 hours yesterday. Dialyzed today. 03/23: Currently on T piece trial. Status post dialysis yesterday on 3 L. Awake and alert. Wants to eat. 03/24: Currently afebrile. Hemodialysis catheter discontinued yesterday from left IJ. Persistent leukocytosis noted. Potassium will be replaced. Furosemide 40 mg twice a day IV to 20 mg IV twice a day 03/25: WBC count unchanged. Patient on T piece with humidified air greater than 48 hours, tolerating it well. Reconsulted 04/12: The patient was transferred emergently from the floor/ [facility]. Patient was initially seen by applications systems engineer Dr. Estrada, and the patient was noted to be tachypneic on T piece of 40%. ABGs were performed which showed a PaO2 of 60 on T piece of FiO2 of 40%. Chest x-ray was performed which showed loss of entire left hemidiaphragm resident programs assistant consolidation in the left lower lobe. Concern for mucus plugging versus fluid. The patient was transferred emergently to [facility] placed on a ventilator CT of the chest is pending. Upon arrival in the room the patient is alert and oriented, mouthing words, nodding head to yes and no questions O2 sat is 100% but patient is currently on mechanical ventilation. Currently in no respiratory distress. 04/13: Tmax 99.8. The patient's oxygen requirements have decreased currently FiO2 35% with a PaO2 1 blood gas of 85, O2 saturation 100%. No respiratory distress noted. Patient underwent CT of the chest yesterday noted pleural effusions left greater than right, diagnostic/and therapeutic CT thoracentesis plan for this a.m.. 04/14: Patient underwent CT-guided thoracentesis of the right side with approximately 600 cc withdrawn. Today applications systems engineer Dr. LABOY in and up size indwelling 6.0 Shiley to a 8.0 Shiley. Minimal bleeding noted around the site. X-ray improving. Patient started on CPAP trials today, as well as tube feeds were initiated. 04/15: Placed on T piece this morning via tracheostomy. Appears to be tolerating it. Laying in bed not in any acute distress. 04/16: Awake and alert. Tolerating T piece. Tolerating PEG feeds. 04/17: Awake and alert. Tolerating T piece. Tolerating tube feeds via PEG 04/18: Awake and alert. Tolerating TPs. Tolerating tube feeds. Passed swallow eval 04/19: Awake and alert. Remains on T piece. Wants to move out of ICU as he indicates to me once again as he has for the past few days. Awaiting CIC bed 04/20: Awake and alert. Remains on T piece. Developed hypotension last night for which she was transiently on Levophed however has been off since early this morning. ID adjusting antibiotics and working up for new sepsis. 04/21: Awake and alert. On T piece. Awaiting CIC bed for the last few days. 04/22: Awake and alert. Remains on T piece. Received 500 cc normal saline this morning for tachycardia. 04/23 No events overnight. Remains on TP's with 35% FIO2. Afebrile. 04/24: Resting comfortably. Got short of breath with Passy-Rafy valve which was taken off. 04/25: Remains on T piece. Awaiting transfer out of ICU. 04/26: Remains on T piece. Still awaiting transfer out of ICU since 04/17. 04/27 Patient became hypotensive, bradycardic and hypoxic, ABG on TP's last night showed acute hypercapnic resp acidosis (PH 7.10, CO2: 80) he was subsequently placed on mechanical ventilator. Patient was given Albumin, 2u PRBC and started on Levophed 3mics. Renal function worse today with Cr: 1.53 from 1.13 04/28 No events overnight off Levophed since yesterday. On no sedation. Afebrile. 04/29 Patient is on ventilator via trach. T;100.4 04/30 Patient remains on ventilator via trach. Afebrile. 05/01 No events overnight. Afebrile. 05/02 No events overnight. On ventilator via trach. T: 100.1 last night. 05/03 Patient remains on ventilator via trach. 05/04 No events overnight. Afebrile. Tolerating tube feeds. 05/05: more hypoxic this morning with increased secretions. fio2 rising. ID on board. leukocytosis persists. 05/06: continues to clinically decline. hypotensive and anemic. no evidence of GI bleeding, but acute drop in hgb. no uop overnight. restarted norepinephrine this morning. 2 units prbc ordered. recultured. had discussion with his son: with recurrent bleeding and worsening septic shock, unlikely to survive this hospital stay. son continues to press for aggressive measures. 05/07: continues to worsen overall. mental status still declining. off vasopresors this morning, but kidney injury worsening. wbc uptrending. ID still involved. hgb stabilized. likely too unstable for travel to CT scan. Palliative re-engaged to have further discussions with Son. I spoke with him yesterday, and Dr. Hogan spoke with him again overnight. likely poor prognosis at this point. 05/08: no improvements or changes. off vasopressors. renal function continues to worsen. 05/09: BREEZY worsening. no need for acute SHIP SCALER at this time. no changes. remains off pressors. wbc slightly downtrended. overall poor prognosis. palliative still involved. 05/10 Patient remains on ventilator via trach. Afebrile. Renal function is gradually worsening. TF held overnight for emesis. 05/11 No events overnight. Afebrile. Repeat CT abd/pelvis yesterday showed retroperitoneal hematoma is slightly larger within its inferior portion relative to the prior exam. No acute hemorrhage seen to suggest recent rebleed 05/12 No events overnight. Patient was on TPs's yesterday and CPAP overnight. Afebrile. WBC is trending down. 05/13 Patient is on ventilator via trach. Renal function continue to worse with Cr: 3.79 and UOP 125ml overnight. Awaiting son's decision re dialysis. 05/14: Remains on mechanical ventilation via tracheostomy. Remains lethargic. Patient's son has refused hemodialysis 05/15: Remains encephalopathic, on mechanical ventilation via tracheostomy. Palliative care and discussion with patient's son regarding goals of therapy. 05/16: Remains encephalopathic, on mechanical ventilation via tracheostomy. Remains on high doses of pressors. Objective Vital Signs Date Time Temp Pulse Resp B/P (MAP) Pulse Ox O2 Delivery O2 Flow Rate FiO2 05/16/17 10:00 75 05/16/17 08:00 96.1 21 86/49 (61) 95 05/16/17 08:00 35 Intake and Output 05/16/17 05/16/17 05/17/17 08:00 16:00 00:00 Intake Total 1318 ml Output Total 110 ml Balance 1208 ml Result Diagram: 05/15/17 0950 05/15/17 0950 Imaging Last Impressions Chest X-Ray 05/10/17 0000 Signed Impressions: Service Date/Time: April 08:58 - CONCLUSION: Pulmonary vascular congestion remains. Duy Genao MD Abdomen/Pelvis CT 05/10/17 0000 Signed Impressions: Service Date/Time: April 15:38 - CONCLUSION: 1. Retroperitoneal hematoma is slightly larger within its inferior portion relative to the prior exam. No acute hemorrhage seen to suggest recent rebleed. No findings to suggest interval infection. 2. Bilateral pleural effusions. These are larger than the prior study. 3. Small volume free fluid within the belly. Candido Mendoza Jr., MD Thoracentesis 04/13/17 1054 Signed Impressions: Service Date/Time: Thursday, April 13, 2017 15:26 - CONCLUSION: Uncomplicated CT-guided right thoracentesis. Candido Mendoza Jr., MD Chest CT 04/12/17 1558 Signed Impressions: Service Date/Time: March 17:51 - CONCLUSION: 1. Slight increase in size of bilateral effusions and basilar atelectasis, left greater than right compared with February 27. Tracheostomy in good position. Trace Holloway MD Renal Ultrasound 04/02/17 0000 Signed Impressions: Service Date/Time: Sunday, April 02, 2017 16:59 - CONCLUSION: Limited exam with the left kidney being unable to be evaluated in the bladder not distended. There do appear to be multiple shadowing stones at the right kidney without hydronephrosis. Angelo Manzo MD Wrist X-Ray 03/27/17 0000 Signed Impressions: Service Date/Time: Monday, March 27, 2017 13:21 - CONCLUSION: 1. No acute fracture is identified. A portion of the previously documented distal ulna fracture remains visualized. 2. 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 Angelo Allen MD Aortography 02/28/17 0000 Signed Impressions: Service Date/Time: Tuesday, February 28, 2017 08:01 - CONCLUSION: 1. Active hemorrhage from distal right lateral sacral and iliolumbar branches successfully coil and Gelfoam embolized, as above. Juan Bahkta MD Abdomen X-Ray 02/26/17 Signed Impressions: Service Date/Time: Sunday, February 26, 2017 14:52 - CONCLUSION: 1. Nonobstructive bowel gas pattern. Juan Bhakta MD Upper Extremity Ultrasound 02/10/17 Signed Impressions: Service Date/Time: Friday, February 10, 2017 18:46 - CONCLUSION: Occlusive thrombus in the cephalic and basilic veins. Benjamin Person MD Lung Scan-V Nuclear Medicine 02/10/17 Signed Impressions: Service Date/Time: Friday, February 10, 2017 22:17 - CONCLUSION: Low probability pulmonary embolism. Candido Patton MD Head CT 02/10/17 Signed Impressions: Service Date/Time: Friday, February 10, 2017 23:51 - CONCLUSION: Negative noncontrast CT brain. Candido Patton MD Lumbar Puncture Fluoroscopy 02/01/17 Signed Impressions: Service Date/Time: January 09:35 - CONCLUSION: Uncomplicated fluoroscopically guided lumbar puncture. CSF was clear. Nabeel Peralta MD Head Magnetic Resonance Angiography 01/27/17 Signed Impressions: Service Date/Time: Friday, January 27, 2017 10:33 - CONCLUSION: No intracranial vascular abnormality is identified. There is no aneurysm visualized. Angelo Allen MD IVC Filter Placement X-Ray 01/25/17 Signed Impressions: Service Date/Time: January 10:29 - CONCLUSION: Uncomplicated inferior vena cava filter placement as above. Yung Fowler MD Thoracic Spine MRI 01/24/17 Signed Impressions: Service Date/Time: Tuesday, January 24, 2017 22:29 - CONCLUSION: 1. Mild degenerative spondylosis most prominently at T11-L1 with slight effacement of the anterior thecal sac and left lateral recess. No significant neural foraminal stenosis. 2. No acute fracture. Juan Bhakta MD Lumbar Spine MRI 01/23/17 Signed Impressions: Service Date/Time: Monday, January 23, 2017 17:01 - CONCLUSION: 1. At L4-5 is a broad-based disc protrusion with severe central canal and lateral recess stenosis and flattening of the exiting right L4 nerve root. 2. L5-S1 there is a disc protrusion and moderate stenosis with flattening of the exiting L5 nerve roots bilaterally. 3. At L3-4 there is a moderate to severe central stenosis and lateral recess stenosis with mild foraminal stenosis. 4. No acute fracture or spondylolisthesis. Trace Holloway MD Lower Extremity Ultrasound 01/23/17 Signed Impressions: Service Date/Time: Monday, January 23, 2017 09:53 - CONCLUSION: Bilateral focal lower extremity DVT involving the posterior tibial veins. Angelo Garrido MD Cervical Spine MRI 01/23/17 Signed Impressions: Service Date/Time: Monday, January 23, 2017 17:01 - CONCLUSION: 1. Multilevel cervical spine degenerative changes as above. 2. Mild degrees of spinal stenosis at C3/C4-C6/C7. No cord compression or cord signal abnormality. 3. Age indeterminate left paracentral/foraminal disc protrusion at C6/C7. 4. Multilevel foraminal stenosis, most severe on the left at C6/C7. Please see individual levels above. 5. No fracture or subluxation of the cervical spine. Angelo Garrido MD Brain MRI 01/23/17 Signed Impressions: Service Date/Time: Monday, January 23, 2017 17:01 - CONCLUSION: 1. No acute stroke or other acute intracranial abnormality demonstrated. 2. Moderate severity chronic white matter changes, nonspecific but most likely related to chronic small vessel disease. 3. Few scattered tiny lacunar infarcts of the brainstem. 4. Given the findings are not entirely specific, clinical evaluation for possible multiple sclerosis recommended. Angelo Garrido MD Knee X-Ray [id number]/22/[id number] Signed Impressions: Service Date/Time: Sunday, January 22, 2017 21:17 - CONCLUSION: 1. Evidence of moderate to large joint effusion. 2. No acute fracture or malalignment. 3. Mild 3 compartment osteoarthritic change. Benjamin Person MD Hip and Pelvis X-Ray [id number]/[id number] Signed Impressions: Service Date/Time: Sunday, January 22, 2017 21:10 - CONCLUSION: 1. Mild to moderate degenerative change of both hips with no acute fracture or malalignment. There is flattening and remodeling of the right humeral head. Benjamin Person MD Objective Remarks GENERAL: 62-year-old male, resting in bed, on mechanical ventilation via trach HEENT: Normocephalic. Atraumatic. Pupils equal, round, reactive. NECK: Tracheostomy in place CHEST: b/l equal air entry CARDIOVASCULAR: normal rate, regular rhythm. ABDOMEN distended. No rigidity. Umbilical hernia is reducible. No guarding. PEG tube in place : Positive scrotal edema Sloan in situ MUSCULOSKELETAL: Pulses 2+. 1+ bilateral upper and lower extremity edema. NEUROLOGICAL: RASS -3. obtunded. weakly withdraws to pain x 4. Procedures 01/25/2017- Retrievable IVC Filter placement 01/26/17-lumbar puncture with fluoroscopy-by interventional radiology 02/01/17- lumbar puncture fluoroscopy by interventional radiology 02/10/17- Endotracheal Intubation 02/10/17-left IJ central venous line placed 02/10/17-left femoral arterial line placed 02/11/17-Diagnostic and therapeutic bronchoscopy with bronchoalveolar lavage 02/11/17-Left upper extremity incision and debridement with excision of septic cephalic vein 02/13/17- Extubated 02/20/17- endotracheal intubation 02/20/17- Left subclavian central line placement 02/20/17-Right radial A-line placement 02/22/17-EGD/colonoscopy 02/28/17-right radial a line 02/28/17- Endotracheal intubation 02/28/17- right sided introducer catheter placement 02/28/17- Right IJ central line placement 02/28/17-Right chest tube placement 02/28/17- Embolization of inferior and superior sacral branches of right internal iliac artery 03/01/17- Hemodialysis access catheter 03/03/17-Right IJ central line placement 03/11/17-Extubated 03/13/17- Endotracheal intubation 03/14/17-Tracheostomy placement, trach downsized to 6.0 Anni 03/30/17 03/15/17-PEG tube placement 04/11/17-CT Chest 04/13/17-thoracentesis right 600 cc removed A/P Problem List: (1) Septic shock ICD Code: A41.9 - Sepsis, unspecified organism; R65.21 - Severe sepsis with septic shock Status: Acute (2) Acute respiratory failure ICD Code: J96.00 - Acute respiratory failure, unspecified whether with hypoxia or hypercapnia Status: Chronic (3) Thrombophlebitis arm ICD Code: I80.8 - Phlebitis and thrombophlebitis of other sites (4) Aspiration pneumonia ICD Code: J69.0 - Pneumonitis due to inhalation of food and vomit Status: Acute (5) Atelectasis of left lung ICD Code: J98.11 - Atelectasis Status: Acute (6) Quadriparesis ICD Code: G82.50 - Quadriplegia, unspecified Status: Acute (7) DVT (deep venous thrombosis) ICD Code: I82.409 - Acute embolism and thrombosis of unspecified deep veins of unspecified lower extremity (8) Altered mental status ICD Code: R41.82 - Altered mental status, unspecified Status: Acute (9) CKD (chronic kidney disease) stage 3, GFR 30-59 ml/min ICD Code: N18.3 - Chronic kidney disease, stage 3 (moderate) Status: Chronic (10) Acute renal failure ICD Code: N17.9 - Acute kidney failure, unspecified Status: Acute (11) Diabetes mellitus ICD Code: E11.9 - Type 2 diabetes mellitus without complications Status: Chronic (12) Distal end of ulna fracture, closed ICD Code: S52.609A - Unspecified fracture of lower end of unspecified ulna, initial encounter for closed fracture Status: Acute (13) Gout ICD Code: M10.9 - Gout, unspecified Status: Chronic Assessment and Plan Assessment: 62yM with chronic multi-organ dysfunction now with recurrent septic shock. hgb stable, active bleeding has appeared to stop at this point. goals remain aggressive, although DNR code status. no improvements. renal function worsens: poor candidate for recurrent acute renal replacement therapy. overall poor prognosis. NEURO/PSYCH: Acute metabolic encephalopathy- persistent, worsening this morning. Quadriparesis secondary to suspected transverse myelitis Recurrent falls On no sedation. Monitor neuro status. Suspected transverse myelitis. Received methylprednisolone 250 mg IV every 6 hours 01/27-02/02, started back on hydrocortisone 02/21/17, initially tapering to 50 mg IV every 8 hours starting received 1 dose at 2100 prior to becoming hypotensive. weaning hydrocortisone taper and stopped 03/09. Resumed hydrocortisone 50mg IV Q6hrly on 03/14 as patient became hypotensive following intubation on 03/13 requiring levophed. LP 01/26 and 02/01. CSF culture negative 01/26, 02/01 Oligoclonal bands negative. CSF/serum IgG index is not elevated. VDRL nonreactive. Cryptococcal antigen negative. Brain MRI 01/23 no acute stroke. Few scattered lacunar infarcts of the brainstem. Moderate chronic white matter changes. MRI cervical/thoracic spine- mild spinal stenosis C3/C4 to C6/C7. No cord compression. RPR negative Neurology has been following, Dr. Crenshaw. Repeat CT brain 02/10 - negative Continue PT/OT oxycodone 5mg po q4h scheduled hydrocortisone taper. RESP: Acute hypoxemic respiratory failure - persistent. Healthcare associated pneumonia/Aspiration Pneumonia - recurrent. S/P Right-sided chest tube 02/28 Continue with vent support keep sat >92% Bronchodilators, pulm toilet, trach care Continue with SBT as vanna. s/p perc tracheostomy 03/14. [address] Estrada 04/13 CT guided thoracentesis scheduled emergently as discussed with Dr. Estrada - 600cc removed (right) 04/14-tracheostomy up sized to 8.0 Shiley [address] applications systems engineer Dr. Estrada at bedside CV: Systolic heart failure likely chronic with ejection fraction 20-25% Hyperlipidemia History of hypertension Mild TR Sinus tachycardia Elevated troponin likely type II demand ischemia Septic Shock Hemorrhagic shock Holding hydralazine and Coreg as patient is on Levophed and Fabien-Synephrine for pressor support Atorvastatin 10 mg by mouth daily for dyslipidemia. 2-D echocardiogram 01/11 revealed EF 20-25%. Mild TR. Pulmonary arterial pressures were normal around 20 On Hydrocortisone 25mg Q12 GI: Large right retroperitoneal hematoma - resolved. Erosive esophagitis Adenomatous/hyperplastic colon polyps Severe acute protein calorie malnutrition Nausea/vomiting - resolved. Diarrhea Gastritis Diverticulosis Internal and external hemorrhoids Hiatal hernia Elevated lipase On Tube feeds Nepro advance to goal rate 40ml/hr 02/27 CT chest/abdomen and pelvis - 9.4 x 7.5 renal and 16 x 12 cm right psoas muscle hematoma. Fluid around liver and spleen. Right-sided nephrolithiasis CTA abdomen 02/28 - possible blushing around iliac/lumbar vessels Discussed with IR. s/p attempted embolization CT abdomen and pelvis 02/10 atrophic left kidney. Bilateral inguinal hernias fat- containing. Nonobstructing 12 mm right kidney stone repeat CT abd/pelvis did not show evidence of obstruction. patient clinically has been having diarrhea (c. diff negative 02/19). also with nausea/vomiting of unclear etiology. EGD/Colonoscopy-02/22/17 showed gastritis esophagitis, hiatal hernia, diverticulosis and multiple polyps in descending colon and sigmoid which were snared biopsied. 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 Avoid nephrotoxins on Lasix 20mg IV Q12, IV Albumin. Renal is following- Dr. Liao. Patient's son has refused hemodialysis. RIOS/SPEP negative. 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 Recommended nephrostomy tube if obstruction Last IHD was 03/22 ID: Septic shock- recurrent Abscess and Suppurative thrombophlebitis left upper extremity MSSA bacteremia Klebsiella UTI ESBL positive Acute aspiration pneumonia/HCAP 04/27 Sputum cx: Pseudomonas, Urine cx: Ivania Bustillo , BC: 05/24 bottles: Coag negative staph likely contaminant 04/29 BC: NGTD 05/01 Wound cx: Pseudomonas, Group D enterococcus, GNR Continue with abx per ID ( on Micafungin) add Zosyn monitor for signs of infections ( fever, WBC) ID follow up Previously treated with Bactrim, ertapenem, intermittent vancomycin, nafcillin Blood cultures 2, UA ESBL positive Klebsiella UTI Sputum 03/14 - Pseudomonas came back resistant to imipenem, Stenotrophomonas maltophilia C-diff PCR negative wound service is following. stage IV sacral ulcer, ulcer right ankle/LE CT abd/pelvis 05/10: Retroperitoneal hematoma is slightly larger within its inferior portion relative to the prior exam. No acute hemorrhage seen to suggest recent rebleed HEME: Anemia DVT, bilateral posterior tibial vein, IVC filter Septic thrombophlebitis with occlusive thrombus mid cephalic and basilic vein side Monitor CBC s/p transfusion 2units PRBC ( 04/26) Received 10 PRBC, 14 FFP, 2 platelets, 1 cryo-02/28 Received 3 units PRBCs Ultrasound 01/23/17 - Bilateral lower extremity with occlusive posterior tibial vein DVTs. Heparin was initially started for DVT but was placed on hold due to LP with suspected traumatic tap. Currently holding full anticoagulation with enoxaparin 100 mg IV twice a day due to anemia as of 02/26 IVC filter was placed 01/25/17. Ultrasound LUE 02/10 occlusive thrombus mid cephalic vein, basilic vein.s. Transfuse 3 units PRBCs 02/27 Transfuse 2 units PRBCs 03/01. Transfused 1 unit PRBCs on 03/14 transfused 2 units prbc 05/06 ENDO: Diabetes mellitus Hypoglycemia History of prior adrenal insufficiency with shock Gout Accu-Cheks to maintain euglycemia Novulin R every 4 hours. Low Regimen MSK: Right distal ulna fracture. Recommended nonoperative management. PROPH: Lansoprazole 30 mg twice a day twice a day for stress ulcer prophylaxis. Has IVC filter. Therapeutic enoxaparin was placed on hold for retroperitoneal hematoma ACCESS: Right Femoral line placed 05/[address] Becerril on 05/14 D/W Palliative care 05/15 Patient is critically ill now with new onset hypotension, septic shock started on Levophed, worsening renal function, patient's son is refusing HD. Palliative care is following. Code status: Alternative code. Palliative care and discussion with patient's family regarding goals of therapy as prognosis is extremely poor at this time. CCT 30 mins Problem Qualifiers (1) Aspiration pneumonia: (2) DVT (deep venous thrombosis): Qualified Codes: I82.443 - Acute embolism and thrombosis of tibial vein, bilateral (3) Acute renal failure: Qualified Codes: N17.9 - Acute kidney failure, unspecified (4) Diabetes mellitus: (5) Gout: Devin Puente MD May 16, 2017 10:29
[2017-05-16] MEDS: PHENYLEPHRINE INJ 80 MG in SODIUM CHLORID 0.9% 500 ML INJ 492 ML IV PRN ×3 (11:07→18:30)
--- NOTE | 2017-05-16 12:25 | HHI.HCPN ---
Reason for visit a. To assist with evaluation and management of symptoms including: shortness of breath, pain, debility. b. To assist medical decision maker(s) with: better understanding of current medical conditions; weighing benefits/burdens of medical treatment options; making medical treatment decisions. Subjective/Interval History Palliative care follow-up for further clarifications of goals of care given patient's worsening clinical condition. Patient seen and examined in ICU, no family at bedside. Not opening eyes to verbal or tactile stimuli, not following commands. Clinical condition complicated by septic shock, remains on 2 vasopressors, max dose with SBP in the 70s. Remains on mechanical ventilation via tracheostomy. Patient on atrial fibrillation. Minimal urinary output. Case reviewed with Dr. Puente and bedside RN Susan. Prognosis is extremely poor at this time. 11:50. Telephone conversation with patient's son Davie. Medical update provided. Discussed patient's progressive decline and worsening clinical condition. Reviewed overall poor prognosis. Compassionate withdrawal of life support discussed yesterday, Davie reports that family is leaning towards withdrawal of care given overall poor prognosis. However, his brother Arnel who resides in [place] would like to come to [place] to "say his good-byes" to patient. Son Arnel expected to arrive in [place] over the weekend. Discussed with Davie that patient is not likely to survive much longer given his worsening clinical condition. Family was encouraged to make a decision at their earliest convenience re timing of withdrawal given the above. CODE STATUS confirmed as alternate code/intubation only. Son made aware that patient is not likely to survive the next 24 hours. Son verbalized understanding. 16:10. Follow-up telephone conversation with patient's son Davie. Medical update provided. Son reports that he has not had a chance to talk to family regarding timing for withdrawal. Son to follow-up with palliative care later today or tomorrow morning. Son made aware of patient's worsening clinical condition, no likely to survive the next 24 hours. Son verbalized understanding. Signed exhibits B&C placed in chart. Nursing staff was instructed not to proceed with compassionate withdrawal of life support until son confirms timing. . Family/friend interactions See interval note. . Advance Directives Living Will: Never completed Health Care Surrogate: Never completed Durable Power of Cash Office Worker: Never completed Advance Directive Specifics Health Care Surrogate(s): Healthcare proxys- Son-Davie Cirilo - ; Son-Arnel Kerr- -cell -home -Opted out though he wants to be updated on patient`s medical status. . Documented care wishes: No known documented care wishes have been completed. . Significant change in goals: Family considering transitioning patient to comfort-directed care/withdrawal life support given overall poor prognosis. . Objective Vital Signs Date Time Temp Pulse Resp B/P (MAP) Pulse Ox O2 Delivery O2 Flow Rate FiO2 05/16/17 11:07 72 71/40 05/16/17 11:06 72 71/40 05/16/17 10:00 75 05/16/17 08:00 82 05/16/17 08:00 96.1 82 21 86/49 (61) 95 05/16/17 08:00 35 05/16/17 07:20 98 35 05/16/17 06:00 80 05/16/17 04:07 95 35 05/16/17 04:00 35 05/16/17 04:00 97.2 74 17 78/43 (55) 95 05/16/17 04:00 74 05/16/17 02:00 76 05/16/17 01:00 96 35 05/16/17 00:52 79 81/44 05/16/17 00:00 82 05/16/17 00:00 97.4 82 22 103/53 (70) 94 05/16/17 00:00 35 05/15/17 23:59 81 94/52 05/15/17 22:04 95 35 05/15/17 22:00 82 05/15/17 20:13 95 35 05/15/17 20:00 79 05/15/17 20:00 35 05/15/17 20:00 97.2 79 25 113/54 (73) 95 05/15/17 18:27 76 99/51 05/15/17 18:26 76 99/51 05/15/17 18:00 85 05/15/17 16:25 95 35 05/15/17 16:00 97.3 85 17 109/57 (74) 97 05/15/17 16:00 35 05/15/17 16:00 85 05/15/17 14:00 83 05/15/17 13:33 83 98/53 05/15/17 12:43 82 113/55 05/15/17 12:29 94 35 Intake & Output 05/16/17 05/16/17 07:00 19:00 Intake Total 1818 ml Output Total 110 ml Balance 1708 ml IV Total 1320 ml Tube Feeding 218 ml Albumin 100 ml Other 180 ml Output Urine Total 10 ml Stool Total 100 ml Physical Exam CONSTITUTIONAL/GENERAL: This is an ill-looking patient. Resting in bed in no acute distress. TUBES/LINES/DRAINS: PEG tube, Tracheostomy on a mechanical ventilator, PIVs, palmer catheter. SKIN: No jaundice. Ecchymoses on upper extremities. Sacral pressure wound and L heel pressure injury per EMR. Wound to anterior neck - tracheostomy insertion area with a foam dressing. Not diaphoretic. ENT: Trached. Nose without bleeding or purulent drainage. Moist oral mucosa. NECK: Trachea midline. #8 Tracheostomy midline- patient on mechanical ventilation. CARDIOVASCULAR: Regular rate and rhythm without murmurs, gallops, or rubs. No JVD. RESPIRATORY/CHEST: Symmetrical, rhonchi and wheezy to auscultation. Small amount of yellow secretions around trach. Patient on mechanical ventilation GASTROINTESTINAL: Abdomen large, obese, round, tender to palpation. Bowel sounds hypoactive. GENITOURINARY: Without palpable bladder distension. catheter in place. Massive scrotal edema. MUSCULOSKELETAL: Gout tophi to fingers, knees, elbows and both ankles. Edema + 3 noted to all 4 extremities. NEUROLOGICAL: Not opening eyes to verbal or tactile stimuli. Not following commands. PSYCHIATRIC: Appears calm. . Diagnostic Tests Laboratory Laboratory Tests Test 05/13/17 16:58 05/14/17 04:00 05/15/17 09:50 Hemoglobin 8.0 GM/DL (13.0-17.0) 9.0 GM/DL (13.0-17.0) 9.3 GM/DL (13.0-17.0) Hematocrit 24.7 % (39.0-51.0) 28.5 % (39.0-51.0) 29.6 % (39.0-51.0) White Blood Count 42.2 TH/MM3 (4.0-11.0) 41.7 TH/MM3 (4.0-11.0) Red Blood Count 3.33 MIL/MM3 (4.50-5.90) 3.45 MIL/MM3 (4.50-5.90) Mean Corpuscular Volume 85.7 FL (80.0-100.0) 85.7 FL (80.0-100.0) Mean Corpuscular Hemoglobin 27.1 PG (27.0-34.0) 26.9 PG (27.0-34.0) Mean Corpuscular Hemoglobin Concent 31.6 % (32.0-36.0) 31.3 % (32.0-36.0) Red Cell Distribution Width 17.7 % (11.6-17.2) 18.4 % (11.6-17.2) Platelet Count 237 TH/MM3 (150-450) 222 TH/MM3 (150-450) Mean Platelet Volume 8.3 FL (7.0-11.0) 8.4 FL (7.0-11.0) Neutrophils (%) (Auto) 82.3 % (16.0-70.0) Lymphocytes (%) (Auto) 3.6 % (9.0-44.0) Monocytes (%) (Auto) 4.4 % (0.0-8.0) Eosinophils (%) (Auto) 9.5 % (0.0-4.0) Basophils (%) (Auto) 0.2 % (0.0-2.0) Neutrophils # (Auto) 34.8 TH/MM3 (1.8-7.7) Lymphocytes # (Auto) 1.5 TH/MM3 (1.0-4.8) Monocytes # (Auto) 1.8 TH/MM3 (0-0.9) Eosinophils # (Auto) 4.0 TH/MM3 (0-0.4) Basophils # (Auto) 0.1 TH/MM3 (0-0.2) CBC Comment AUTO DIFF AUTO DIFF Differential Total Cells Counted 100 100 Neutrophils % (Manual) 74 % (16-70) 69 % (16-70) Band Neutrophils % 6 % (0-6) 3 % (0-6) Lymphocytes % 5 % (9-44) 8 % (9-44) Monocytes % 5 % (0-8) 2 % (0-8) Eosinophils % 9 % (0-4) 15 % (0-4) Neutrophils # (Manual) 34.2 TH/MM3 (1.8-7.7) 31.3 TH/MM3 (1.8-7.7) Metamyelocytes 1 % (0-1) Differential Comment FINAL DIFF MANUAL FINAL DIFF MANUAL Platelet Estimate NORMAL (NORMAL) NORMAL (NORMAL) Platelet Morphology Comment NORMAL (NORMAL) NORMAL (NORMAL) Ovalocytes 1+ (NORMAL) Blood Urea Nitrogen 152 MG/DL (7-18) 146 MG/DL (7-18) Creatinine 4.05 MG/DL (0.60-1.30) 4.15 MG/DL (0.60-1.30) Random Glucose 213 MG/DL (74-106) 240 MG/DL (74-106) Calcium Level 7.5 MG/DL (8.5-10.1) 7.7 MG/DL (8.5-10.1) Sodium Level 130 MEQ/L (136-145) 129 MEQ/L (136-145) Potassium Level 3.5 MEQ/L (3.5-5.1) 3.4 MEQ/L (3.5-5.1) Chloride Level 96 MEQ/L (98-107) 96 MEQ/L (98-107) Carbon Dioxide Level 15.9 MEQ/L (21.0-32.0) 14.1 MEQ/L (21.0-32.0) Anion Gap 18 MEQ/L (5-15) 19 MEQ/L (5-15) Estimat Glomerular Filtration Rate 15 ML/MIN (>89) 15 ML/MIN (>89) Myelocytes 3 % (0-0) Basophilic Stippling FAINT (NORMAL) Total Protein 5.4 GM/DL (6.4-8.2) Albumin 2.8 GM/DL (3.4-5.0) Alkaline Phosphatase 113 U/L (45-117) Aspartate Amino Transf (AST/SGOT) 18 U/L (15-37) Alanine Aminotransferase (ALT/SGPT) 9 U/L (12-78) Total Bilirubin 0.5 MG/DL (0.2-1.0) Result Diagram: 05/15/17 0950 05/15/17 0950 Microbiology Microbiology Date/Time Source Procedure Growth Status 05/13/17 21:09 Blood Peripheral Aerobic Blood Culture - Final Staphylococcus Haemolyticus Resulted 05/13/17 21:09 Blood Peripheral Anaerobic Blood Culture - Preliminary NO GROWTH IN 3 DAYS Resulted 05/13/17 18:35 Blood Peripheral Aerobic Blood Culture - Preliminary NO GROWTH IN 3 DAYS Resulted 05/13/17 18:35 Blood Peripheral Anaerobic Blood Culture - Preliminary NO GROWTH IN 3 DAYS Resulted Procedures 01/25/2017- Retrievable IVC Filter placement 01/26/17-lumbar puncture with fluoroscopy-by interventional radiology 02/01/17- lumbar puncture fluoroscopy by interventional radiology 02/10/17- Endotracheal Intubation 02/10/17-left IJ central venous line placed 02/10/17-left femoral arterial line placed 02/11/17-Diagnostic and therapeutic bronchoscopy with bronchoalveolar lavage 02/11/17-Left upper extremity incision and debridement with excision of septic cephalic vein 02/13/17- Extubated 02/20/17- endotracheal intubation 02/20/17- Left subclavian central line placement 02/20/17-Right radial A-line placement 02/22/17-EGD/colonoscopy 02/28/17-right radial a line 02/28/17- Endotracheal intubation 02/28/17- right sided introducer catheter placement 02/28/17- Right IJ central line placement 02/28/17-Right chest tube placement 02/28/17- Embolization of inferior and superior sacral branches of right internal iliac artery 03/01/17- Hemodialysis access catheter 03/03/17-Right IJ central line placement 03/11/17-Extubated 03/13/17- Endotracheal intubation 03/14/17-Tracheostomy placement 03/15/17-PEG tube placement 04/13/17-thoracentesis right 600 cc removed 04/13/17-Tracheostomy up-sized to #8 Shiley 04/26/17 Central line placement . Assessment and Plan Disease Oriented Problem List: (1) Acute respiratory failure (2) Septic shock (3) Aspiration pneumonia (4) Acute renal failure (5) CKD (chronic kidney disease) stage 3, GFR 30-59 ml/min (6) Cardiomyopathy (7) DVT of lower extremity, bilateral (8) Thrombophlebitis arm (9) Diabetes mellitus (10) Gout (11) HTN (hypertension) (12) Hyperlipidemia Symptom Scale: (1) Shortness of breath 0-10 Scale: Unable to quantify Comment: Trach, Back on mechanical ventilation 04/26/17 . . (2) Debility 0-10 Scale: Unable to quantify Comment: Progressive. . (3) Pain 0-10 Scale: Unable to quantify Comment: History of falls, gout, arthritis, and currently bedbound. . Pertinent Non-Medical Issues Psychosocial:Patient was born and raised in [place], [place]. Patient was once for 20 years, now and has 2 adult sons. 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 He recently resigned due to failing health. Spiritual: No christianity affiliation Legal: Per [place] statutes, in the absence of written advanced directives healthcare proxy decision making falls to the patient's 2 adult children. Patient's son (Davie) lives locally and wishes to participate in the role of the healthcare proxy decision maker. Palliative care has attempted to contact Arnel, has not call back. Patient`s sister Deb and patients brother verbalized that they have been updating Arnel on patient`s medical status. Ethical issues impacting care: No known ethical issues impacting care at this time. . Important Contacts Son-Davie Kerr - Son-Arnel Kerr- -cell -home Sister-Deb Curry . Prognosis Mr Kerr is a 62 years old male with a past medical history of hypertension, asthma, diabetes, hyperlipidemia, chronic kidney disease and gout. Patient presented to the ED on 01/22/17 complaining of bilateral knee and right arm pain after a mechanical fall 4 or 5 days prior to coming to the ER. Clinical course complicated with increased weakness leading to numerous diagnostic work ups for possible transverse myelitis, DVTs, retroperitoneal hematoma, aspiration pneumonia, intubation x 4 times, septic and hemorrhagic shock requiring support with pressors and multiple pRBC, FFP transfusions as well as platelets and cryo , renal failure requiring hemodialysis and sacral wound Given ongoing comorbidities, and prolonged hospitalization, patient remains at risk for further complications, deterioration and decline. Code Status: Alternative Code (Intubation only ) Plan * Legal decision maker: Patient unable to participating in medical decision- making secondary to clinical condition, unclear if he will regain capacity. According to [place] statutes, health care proxy decision making falls to majority of adult children, he as 2 sons Davie and Arnel. Arnel has opted out of decision making; therefore, HCP is son Davie Kerr who has accepted this role. * CODE STATUS: CODE STATUS confirmed as alternate code/intubation only. Son made aware that patient is not likely to survive the next 24 hours. Son verbalized understanding. * Goals: 05/16/17: Pt's son Davie Kerr acting as healthcare proxy decision maker is considering comfort-directed care/compassionate withdrawal life support given patient's worsening clinical condition and very poor prognosis for survival. Exhibit B signed by son, however, pending timing of withdrawal. Pending additional family members to visit. Son Davie made aware that patient is not likely to survive the next 24 hours given worsening clinical condition, son verbalized understanding. OK not to escalate care while family sets time for withdrawal, patient currently on 2 vasopressors and mechanical ventilation. SYMPTOMS: * Shortness of breath: Multifactorial. Patient has had aspiration pneumonia. Patient has been intubated 4 times this hospitalization. Patient has a tracheostomy. On duonebs. Patient is also on Hydrocortisone 50mg q 6 hours. Wellness Instructor following. Trach up-sized to #8. Patient placed back on mechanical ventilation, was hypoxic 04/26/17. * Pain: Patient presented initially complaining of pain to right wrist and bilateral knees after a mechanical fall. Patient has a history of gout, arthritis, multiple falls and is currently bedbound. Patient on Oxycodone 5mg q 4 hours ATC. Patient on Hydrocortisone. * Debility: Progressive. Patient has had decline in his health for the past 4 months, including progressively increased weakness and difficulty ambulating and prolonged hospitalization with multiple setbacks. Patient remains at high risk for further physical deconditioning and debility. * Case discussed with Dr. Puente and bedside RN Susan. * Palliative care will continue to follow the patient during hospital course as condition evolves, to assist patient/decision-maker with understanding of their medical conditions, weighing benefits/burdens of treatment options, for clarification of goals of treatment. . Time Spent Total Floor Time (mins): 38 (Total time to include review medical records, physical exam, 2 separate telephone conversations with patient's son to discuss goals of care, Case discussion with Dr. Puente and bedside RN Susan.) >50% Counseling/Coord of Care: Yes Attestation To help prompt me to consider important information that might be impacting today's encounter and assessment, information from prior notes written by myself or my colleagues may have been "brought forward" into today's note. My signature on this note, however, is an attestation that I personally performed the exam, history, and/or decision-making noted today, and, unless otherwise indicated, the interactions with patient, family, and staff as well as the review of records all occurred today. I also attest that the listed assessment and stated plan reflect my best clinical judgment today based on the combination of historical information, prior notes, and today's exam/ interactions. When time spent is documented, it refers only to time spent today by the signer, or if indicated, combined time spent today by collaborating physician/nurse practitioner. Ira Padilla May 16, 2017 12:25
[2017-05-16] MEDS: MICAFUNGIN INJ 150 MG in SODIUM CHLORIDE 0.9% INJ 100 ML IV SCH (15:57)
[2017-05-16] MEDS: ATORVASTATIN 10 MG TAB PO SCH (21:00)
[2017-05-16] MEDS ORDERED: LORazepam 2 MG/ML VIAL IV PUSH PRN (23:00)
[2017-05-16] MEDS ORDERED: LORazepam 2 MG/ML VIAL IV PUSH ONE (23:00)
[2017-05-16] MEDS ORDERED: MORPHINE SULFATE 2 MG/ML INJ IV PUSH ONE (23:00)
[2017-05-16] MEDS ORDERED: MORPHINE SULFATE 2 MG/ML INJ IV PRN (23:15)
== END 2017-05-17 | disposition expired | DRG 3 ==
LOC: NEPC 20:28 → INTOOBSV 22:17 → NEDA 22:17 → NEPFCDU 01-23 02:31 → OBSVTOIN 01-24 15:59 → N05A 01-25 01:06 → N03A 02-10 20:06 → N06B 02-16 19:44 → N03B 02-20 12:05 → N05A 03-26 15:45 → HIMN 04-12 17:15
PROVIDERS: ADMIT Anesthesiology; ATTEND Anesthesiology
PROC: 06H03DZ Insertion of Intraluminal Device into Inferior Vena Cava, Percutaneous Approach (ICD-10-PCS; principal; 2017-01-25)
PROC: 05HM33Z Insertion of Infusion Device into Right Internal Jugular Vein, Percutaneous Approach (ICD-10-PCS; 2017-01-25)
PROC: 009U3ZX Drainage of Spinal Canal, Percutaneous Approach, Diagnostic (ICD-10-PCS; 2017-01-26)
PROC: 009U3ZX Drainage of Spinal Canal, Percutaneous Approach, Diagnostic (ICD-10-PCS; 2017-02-01)
PROC: 0BH17EZ Insertion of Endotracheal Airway into Trachea, Via Natural or Artificial Opening (ICD-10-PCS; 2017-02-10)
PROC: 5A1945Z Respiratory Ventilation, 24-96 Consecutive Hours (ICD-10-PCS; 2017-02-10)
PROC: 0T9B70Z Drainage of Bladder with Drainage Device, Via Natural or Artificial Opening (ICD-10-PCS; 2017-02-10)
PROC: 05HN33Z Insertion of Infusion Device into Left Internal Jugular Vein, Percutaneous Approach (ICD-10-PCS; 2017-02-10)
PROC: 04HY32Z Insertion of Monitoring Device into Lower Artery, Percutaneous Approach (ICD-10-PCS; 2017-02-10)
PROC: 0B9H8ZX Drainage of Lung Lingula, Via Natural or Artificial Opening Endoscopic, Diagnostic (ICD-10-PCS; 2017-02-11)
PROC: 05BF0ZZ Excision of Left Cephalic Vein, Open Approach (ICD-10-PCS; 2017-02-11)
PROC: 0BCB8ZZ Extirpation of Matter from Left Lower Lobe Bronchus, Via Natural or Artificial Opening Endoscopic (ICD-10-PCS; 2017-02-11)
PROC: 0BC58ZZ Extirpation of Matter from Right Middle Lobe Bronchus, Via Natural or Artificial Opening Endoscopic (ICD-10-PCS; 2017-02-11)
PROC: 0BC68ZZ Extirpation of Matter from Right Lower Lobe Bronchus, Via Natural or Artificial Opening Endoscopic (ICD-10-PCS; 2017-02-11)
PROC: 0BH17EZ Insertion of Endotracheal Airway into Trachea, Via Natural or Artificial Opening (ICD-10-PCS; 2017-02-20)
PROC: 5A1945Z Respiratory Ventilation, 24-96 Consecutive Hours (ICD-10-PCS; 2017-02-20)
PROC: 05H633Z Insertion of Infusion Device into Left Subclavian Vein, Percutaneous Approach (ICD-10-PCS; 2017-02-20)
PROC: 03HY32Z Insertion of Monitoring Device into Upper Artery, Percutaneous Approach (ICD-10-PCS; 2017-02-20)
PROC: 4A133B1 Monitoring of Arterial Pressure, Peripheral, Percutaneous Approach (ICD-10-PCS; 2017-02-20)
PROC: 4A133J1 Monitoring of Arterial Pulse, Peripheral, Percutaneous Approach (ICD-10-PCS; 2017-02-20)
PROC: 0DBM8ZX Excision of Descending Colon, Via Natural or Artificial Opening Endoscopic, Diagnostic (ICD-10-PCS; 2017-02-22)
PROC: 0DBM8ZX Excision of Descending Colon, Via Natural or Artificial Opening Endoscopic, Diagnostic (ICD-10-PCS; 2017-02-22)
PROC: 0DBL8ZX Excision of Transverse Colon, Via Natural or Artificial Opening Endoscopic, Diagnostic (ICD-10-PCS; 2017-02-22)
PROC: 0DB98ZX Excision of Duodenum, Via Natural or Artificial Opening Endoscopic, Diagnostic (ICD-10-PCS; 2017-02-22)
PROC: 0DB68ZX Excision of Stomach, Via Natural or Artificial Opening Endoscopic, Diagnostic (ICD-10-PCS; 2017-02-22)
PROC: 0DB38ZX Excision of Lower Esophagus, Via Natural or Artificial Opening Endoscopic, Diagnostic (ICD-10-PCS; 2017-02-22)
PROC: 30233N1 Transfusion of Nonautologous Red Blood Cells into Peripheral Vein, Percutaneous Approach (ICD-10-PCS; 2017-02-26)
PROC: 30233K1 Transfusion of Nonautologous Frozen Plasma into Peripheral Vein, Percutaneous Approach (ICD-10-PCS; 2017-02-27)
PROC: 6A551Z2 Pheresis of Platelets, Multiple (ICD-10-PCS; 2017-02-27)
PROC: 04LE3DZ Occlusion of Right Internal Iliac Artery with Intraluminal Device, Percutaneous Approach (ICD-10-PCS; 2017-02-28)
PROC: 5A1955Z Respiratory Ventilation, Greater than 96 Consecutive Hours (ICD-10-PCS; 2017-02-28)
PROC: 03HY32Z Insertion of Monitoring Device into Upper Artery, Percutaneous Approach (ICD-10-PCS; 2017-02-28)
PROC: 4A133B1 Monitoring of Arterial Pressure, Peripheral, Percutaneous Approach (ICD-10-PCS; 2017-02-28)
PROC: 4A133J1 Monitoring of Arterial Pulse, Peripheral, Percutaneous Approach (ICD-10-PCS; 2017-02-28)
PROC: 05HM33Z Insertion of Infusion Device into Right Internal Jugular Vein, Percutaneous Approach (ICD-10-PCS; 2017-02-28)
PROC: 0W9930Z Drainage of Right Pleural Cavity with Drainage Device, Percutaneous Approach (ICD-10-PCS; 2017-02-28)
PROC: 0BH17EZ Insertion of Endotracheal Airway into Trachea, Via Natural or Artificial Opening (ICD-10-PCS; 2017-02-28)
PROC: 05HN33Z Insertion of Infusion Device into Left Internal Jugular Vein, Percutaneous Approach (ICD-10-PCS; 2017-03-01)
PROC: 05HM33Z Insertion of Infusion Device into Right Internal Jugular Vein, Percutaneous Approach (ICD-10-PCS; 2017-03-03)
PROC: 0BH17EZ Insertion of Endotracheal Airway into Trachea, Via Natural or Artificial Opening (ICD-10-PCS; 2017-03-13)
PROC: 5A1945Z Respiratory Ventilation, 24-96 Consecutive Hours (ICD-10-PCS; 2017-03-13)
PROC: 0B113F4 Bypass Trachea to Cutaneous with Tracheostomy Device, Percutaneous Approach (ICD-10-PCS; 2017-03-14)
PROC: 0B978ZZ Drainage of Left Main Bronchus, Via Natural or Artificial Opening Endoscopic (ICD-10-PCS; 2017-03-14)
PROC: 0B938ZZ Drainage of Right Main Bronchus, Via Natural or Artificial Opening Endoscopic (ICD-10-PCS; 2017-03-14)
PROC: 03HY32Z Insertion of Monitoring Device into Upper Artery, Percutaneous Approach (ICD-10-PCS; 2017-03-14)
PROC: 4A133B1 Monitoring of Arterial Pressure, Peripheral, Percutaneous Approach (ICD-10-PCS; 2017-03-14)
PROC: 4A133J1 Monitoring of Arterial Pulse, Peripheral, Percutaneous Approach (ICD-10-PCS; 2017-03-14)
PROC: 0DJ08ZZ Inspection of Upper Intestinal Tract, Via Natural or Artificial Opening Endoscopic (ICD-10-PCS; 2017-03-15)
PROC: 0DH63UZ Insertion of Feeding Device into Stomach, Percutaneous Approach (ICD-10-PCS; 2017-03-15)
PROC: 5A1D70Z Performance of Urinary Filtration, Intermittent, Less than 6 Hours Per Day (ICD-10-PCS; 2017-04-01)
PROC: 5A1945Z Respiratory Ventilation, 24-96 Consecutive Hours (ICD-10-PCS; 2017-04-12)
PROC: 0W993ZX Drainage of Right Pleural Cavity, Percutaneous Approach, Diagnostic (ICD-10-PCS; 2017-04-13)
PROC: 0W993ZX Drainage of Right Pleural Cavity, Percutaneous Approach, Diagnostic (ICD-10-PCS; 2017-04-13)
PROC: 5A1955Z Respiratory Ventilation, Greater than 96 Consecutive Hours (ICD-10-PCS; 2017-04-27)
PROC: 05H533Z Insertion of Infusion Device into Right Subclavian Vein, Percutaneous Approach (ICD-10-PCS; 2017-04-27)
DX: G37.3 Acute transverse myelitis in demyelinating disease of central nervous system (principal); A41.01 Sepsis due to Methicillin susceptible Staphylococcus aureus; N17.0 Acute kidney failure with tubular necrosis; J69.0 Pneumonitis due to inhalation of food and vomit; G93.41 Metabolic encephalopathy; K66.1 Hemoperitoneum; J96.21 Acute and chronic respiratory failure with hypoxia; R65.21 Severe sepsis with septic shock; R57.0 Cardiogenic shock; N18.4 Chronic kidney disease, stage 4 (severe); B37.81 Candidal esophagitis; I80.8 Phlebitis and thrombophlebitis of other sites; E43 Unspecified severe protein-calorie malnutrition; I50.23 Acute on chronic systolic (congestive) heart failure; G82.50 Quadriplegia, unspecified; J96.22 Acute and chronic respiratory failure with hypercapnia; J15.1 Pneumonia due to Pseudomonas; N17.9 Acute kidney failure, unspecified; E27.40 Unspecified adrenocortical insufficiency; S52.601A Unspecified fracture of lower end of right ulna, initial encounter for closed fracture; I13.0 Hypertensive heart and chronic kidney disease with heart failure and stage 1 through stage 4 chronic kidney disease, or unspecified chronic kidney disease; I82.403 Acute embolism and thrombosis of unspecified deep veins of lower extremity, bilateral; J98.11 Atelectasis; I82.612 Acute embolism and thrombosis of superficial veins of left upper extremity; T81.72XA Complication of vein following a procedure, not elsewhere classified, initial encounter; T80.1XXA Vascular complications following infusion, transfusion and therapeutic injection, initial encounter; E87.0 Hyperosmolality and hypernatremia; A09 Infectious gastroenteritis and colitis, unspecified; I42.0 Dilated cardiomyopathy; K22.10 Ulcer of esophagus without bleeding; N39.0 Urinary tract infection, site not specified; Z99.11 Dependence on respirator [ventilator] status; D62 Acute posthemorrhagic anemia; J44.0 Chronic obstructive pulmonary disease with (acute) lower respiratory infection; L02.414 Cutaneous abscess of left upper limb; E87.2 Acidosis; N13.2 Hydronephrosis with renal and ureteral calculous obstruction; K94.23 Gastrostomy malfunction; D68.59 Other primary thrombophilia; L89.154 Pressure ulcer of sacral region, stage 4; I25.5 Ischemic cardiomyopathy; L89.152 Pressure ulcer of sacral region, stage 2; M50.223 Other cervical disc displacement at C6-C7 level; E11.22 Type 2 diabetes mellitus with diabetic chronic kidney disease; E11.65 Type 2 diabetes mellitus with hyperglycemia; M1A.9XX1 Chronic gout, unspecified, with tophus (tophi); M25.562 Pain in left knee; M25.561 Pain in right knee; W18.30XA Fall on same level, unspecified, initial encounter; M1A.9XX0 Chronic gout, unspecified, without tophus (tophi); E78.5 Hyperlipidemia, unspecified; Y93.9 Activity, unspecified; E86.0 Dehydration; G89.29 Other chronic pain; M48.061 Spinal stenosis, lumbar region without neurogenic claudication; M50.31 Other cervical disc degeneration, high cervical region; M51.26 Other intervertebral disc displacement, lumbar region; M51.27 Other intervertebral disc displacement, lumbosacral region; M47.812 Spondylosis without myelopathy or radiculopathy, cervical region; Z87.442 Personal history of urinary calculi; R29.6 Repeated falls; L30.4 Erythema intertrigo; T17.990A Other foreign object in respiratory tract, part unspecified in causing asphyxiation, initial encounter; X58.XXXA Exposure to other specified factors, initial encounter; Y93.89 Activity, other specified; Y92.239 Unspecified place in hospital as the place of occurrence of the external cause; T38.0X5A Adverse effect of glucocorticoids and synthetic analogues, initial encounter; Z78.1 Physical restraint status; R11.2 Nausea with vomiting, unspecified; R00.0 Tachycardia, unspecified; Y95 Nosocomial condition; K40.20 Bilateral inguinal hernia, without obstruction or gangrene, not specified as recurrent; E83.51 Hypocalcemia; E87.6 Hypokalemia; E83.39 Other disorders of phosphorus metabolism; N32.89 Other specified disorders of bladder; E11.649 Type 2 diabetes mellitus with hypoglycemia without coma; K57.30 Diverticulosis of large intestine without perforation or abscess without bleeding; K63.5 Polyp of colon; K64.8 Other hemorrhoids; K64.4 Residual hemorrhoidal skin tags; K29.70 Gastritis, unspecified, without bleeding; K44.9 Diaphragmatic hernia without obstruction or gangrene; K21.0 Gastro-esophageal reflux disease with esophagitis; L89.329 Pressure ulcer of left buttock, unspecified stage; L89.319 Pressure ulcer of right buttock, unspecified stage; M85.80 Other specified disorders of bone density and structure, unspecified site; Z51.5 Encounter for palliative care; N50.89 Other specified disorders of the male genital organs; Z53.9 Procedure and treatment not carried out, unspecified reason; E83.42 Hypomagnesemia; Z83.3 Family history of diabetes mellitus; Z82.5 Family history of asthma and other chronic lower respiratory diseases; Z82.49 Family history of ischemic heart disease and other diseases of the circulatory system; Z99.2 Dependence on renal dialysis; L89.629 Pressure ulcer of left heel, unspecified stage; Y83.8 Other surgical procedures as the cause of abnormal reaction of the patient, or of later complication, without mention of misadventure at the time of the procedure; Y73.1 Therapeutic (nonsurgical) and rehabilitative gastroenterology and urology devices associated with adverse incidents; I48.91 Unspecified atrial fibrillation; E87.5 Hyperkalemia; M79.81 Nontraumatic hematoma of soft tissue; Z66 Do not resuscitate; R00.1 Bradycardia, unspecified; R33.9 Retention of urine, unspecified; B96.1 Klebsiella pneumoniae [K. pneumoniae] as the cause of diseases classified elsewhere; M48.02 Spinal stenosis, cervical region
CPT/HCPCS: 31500; 31624; 32554; 32555; 36247; 36248; 36430; 36556; 36600; 37191; 37244; 62270; 70450; 70544; 70551; 71010; 71250; 72141; 72146; 72148; 73100; 73110; 73502; 73564; 74000; 74174; 74176; 75736; 75774; 76775; 76937; 77003; 78582; 80048; 80053; 80069; 80074; 80076; 80202; 81001; 82040; 82042; 82140; 82150; 82272; 82306; 82533; 82550; 82552; 82570; 82607; 82728; 82746; 82784; 82805; 82945; 82948; 83010; 83036; 83540; 83550; 83605; 83615; 83690; 83735; 83873; 83880; 83916; 83986; 84100; 84132; 84134; 84145; 84155; 84156; 84157; 84165; 84300; 84425; 84443; 84484; 84550; 85007; 85014; 85018; 85025; 85027; 85060; 85384; 85610; 85652; 85730; 86038; 86140; 86403; 86592; 86618; 86850; 86900; 86901; 86920; 86927; 86965; 87015; 87040; 87070; 87077; 87086; 87102; 87116; 87147; 87186; 87205; 87206; 87449; 87493; 87641; 88304; 88305; 88312; 89051; 90935; 93005; 93306; 93970; 93971; 94002; 94003; 94150; 94640; 94664; 94667; 94668; 96361; 96365; 96366; 96367; 96372; 96374; 96375; 99152; 99153; A7520; A7521; A9540; A9567; C1729; C1769; C1880; C1887; C1894; C9113; G0378; G8987-GO; G8987-GP; G8988-GO; G8988-GP; J0131; J0171; J0330; J0360; J0456; J0461; J0610; J0692; J0695; J0713; J0878; J1170; J1265; J1335; J1450; J1580; J1610; J1630; J1644; J1650; J1720; J1815; J1817; J1940; J2020; J2060; J2150; J2185; J2248; J2250; J2270; J2370; J2405; J2543; J2700; J2720; J2765; J2930; J2997; J3010; J3370; J3475; J3480; J7030; J7040; J7050; J7060; J7070; J7120; J7512; J7608; J7613; J7685; L3908; P9016; P9017; P9035; P9045; P9047; Q4081; Q9963; Q9967